=== PATIENT | male | born 1970 | race Caucasian/White ===

== ENCOUNTER 2023-01-12 09:44 | Outpatient (OUT) | payer BC, SELFPAY ==
[2023-01-12 10:52] LABS: Basophils Absolute Auto 0.1 10^3/uL (0.0-0.1); Basophils Percent Auto 0.8 % (0.2-2.0); Eosinophils Absolute Auto 0.2 10^3/uL (0.0-0.7); Eosinophils Percent Auto 2.1 % (0.9-7.0); Hematocrit 42.5 % (42.0-54.0); Hemoglobin 14.9 g/dL (14.0-18.0); Immature Granulocytes Abs Auto 0.01 10^3/uL (0.00-0.03); Immature Granulocytes Pct Auto 0.1 % (0.0-0.5); Lymphocytes Absolute Auto 1.5 10^3/uL (1.2-3.8); Lymphocytes Percent Auto 20.8 % (20.5-60.0); Mean Corpuscular HGB Conc 35.1 g/dL (29.9-35.2); Mean Corpuscular Volume 85.7 fL (80.0-94.0); Mean Platelet Volume 10.5 fL (9.5-13.5); Monocytes Absolute Auto 0.6 10^3/uL (0.3-0.8); Neutrophils Absolute Auto 4.9 10^3/uL (1.4-6.5); Neutrophils Percent Auto 68.2 % (43.0-75.0); Platelet Count 226 10^3/uL (150-450); Red Blood Count 4.96 10^6/uL (4.70-6.10); White Blood Count 7.1 10^3/uL (4.0-11.0)
[2023-01-12 11:13] LABS: Prostate Specific Antigen Scrn 0.75 ng/mL (<=4.00)
[2023-01-12 11:15] LABS: Alanine Aminotransferase 54 U/L (16-63); Albumin Globulin Ratio 1.2; Albumin Level 4.3 g/dL (3.4-5.0); Alkaline Phosphatase 83 U/L (46-116); Aspartate Amino Transferase 25 U/L (15-37); Bilirubin Total 0.6 mg/dL (0.2-1.0); Calcium 9.8 mg/dL (8.5-10.1); Carbon Dioxide 30.9 mmol/L (21.0-32.0); Chloride 101 mmol/L (98-107); Chol HDL Ratio 5.5; Cholesterol 251 mg/dL (<=200); Estimated GFR (African America >60 (>=60); Estimated GFR (Non-African Ame >60 (>=60); Globulin 3.7 g/dL; Glucose 102 mg/dL (74-106); HDL Cholesterol 46 mg/dL (40-60); Potassium 4.9 mmol/L (3.5-5.1); Sodium 139 mmol/L (136-145); Thyroid Stimulating Hormone 1.253 uIU/mL (0.358-3.740); Triglycerides 90 mg/dL (<=150)
== END 2023-01-12 09:45 | disposition home or self-care (01) ==
PROVIDERS: PCP Nurse Practitioner; Visit Provider Nurse Practitioner
DX: Z00.00 Encounter for general adult medical examination without abnormal findings (principal); I10 Essential (primary) hypertension; G47.33 Obstructive sleep apnea (adult) (pediatric); Z12.5 Encounter for screening for malignant neoplasm of prostate; Z78.9 Other specified health status; Z68.43 Body mass index [BMI] 50.0-59.9, adult
CPT/HCPCS: 36415; 80053; 80061; 84443; 85025; G0103

== ENCOUNTER 2023-01-15 15:03 | Outpatient (OUT) | payer BC, SELFPAY ==
--- NOTE | 2023-01-15 | XR_ITS ---
The [address] [address] Patient Name: NEHAL BAIG MRN: [id number] date: 1970 Sex: M Assigned Patient Location: [facility] Current Patient Location: Accession/Order Number: [id number] Exam Date: 01/15/2023 15:40 Report Date: 01/16/2023 02:01 At the request of: TOMER JACINTO Procedure: XR ankle JEMIMA min 3V EXAMINATION: XR foot JEMIMA min 3V, XR ankle JEMIMA min 3V HISTORY: BILATERAL FOOT PAIN COMPARISON: No relevant comparison available. FINDINGS: RIGHT FINDINGS: BONES: No significant arthropathy or acute abnormality. SOFT TISSUES: No visible soft tissue swelling. OTHER: Negative. LEFT FINDINGS: BONES: No significant arthropathy or acute abnormality. SOFT TISSUES: Degenerative enthesopathic spurring at Achilles tendon insertion. OTHER: Negative. XR/XR ankle JEMIMA min 3V IMPRESSION: RIGHT CONCLUSION: No acute bone abnormality or significant degenerative joint disease. LEFT CONCLUSION: No acute bone abnormality or significant degenerative joint disease. Electronically authenticated by: JAYY GIVENS Date: 01/16/2023 02:01
--- NOTE | 2023-01-15 | XR_ITS ---
The [address] [address] Patient Name: NEHAL BAIG MRN: [id number] date: 1970 Sex: M Assigned Patient Location: [facility] Current Patient Location: Accession/Order Number: [id number] Exam Date: 01/15/2023 15:40 Report Date: 01/16/2023 02:01 At the request of: TOMER JACINTO Procedure: XR foot JEMIMA min 3V EXAMINATION: XR foot JEMIMA min 3V, XR ankle JEMIMA min 3V HISTORY: BILATERAL FOOT PAIN COMPARISON: No relevant comparison available. FINDINGS: RIGHT FINDINGS: BONES: No significant arthropathy or acute abnormality. SOFT TISSUES: No visible soft tissue swelling. OTHER: Negative. LEFT FINDINGS: BONES: No significant arthropathy or acute abnormality. SOFT TISSUES: Degenerative enthesopathic spurring at Achilles tendon insertion. OTHER: Negative. XR/XR foot JEMIMA min 3V IMPRESSION: RIGHT CONCLUSION: No acute bone abnormality or significant degenerative joint disease. LEFT CONCLUSION: No acute bone abnormality or significant degenerative joint disease. Electronically authenticated by: JAYY GIVENS Date: 01/16/2023 02:01
== END 2023-01-15 15:04 | disposition home or self-care (01) ==
LOC: RAD 15:03
PROVIDERS: PCP Nurse Practitioner; Visit Provider Podiatrist Foot & Ankle Surgery
DX: M79.673 Pain in unspecified foot (principal); M25.571 Pain in right ankle and joints of right foot; M25.572 Pain in left ankle and joints of left foot; M79.671 Pain in right foot; M79.672 Pain in left foot
CPT/HCPCS: 73610; 73630

== ENCOUNTER 2023-01-24 15:31 | Outpatient (OUT) | payer BC, SELFPAY ==
--- NOTE | 2023-01-24 15:35 | MR_ITS ---
The [place] [id number] Patient Name: NEHAL BAIG MRN: [id number] date: 1970 Sex: M Assigned Patient Location: MRI Current Patient Location: Accession/Order Number: [id number] Exam Date: 01/24/2023 15:47 Report Date: 01/28/2023 07:59 At the request of: TOMER JACINTO Procedure: MR ankle LT wo con HISTORY: Pain in the posterior aspect of the left ankle and heel. No known injury. MR ankle LT wo con: 01/24/2023 3:47 PM EDT COMPARISON: Radiographs of the left ankle and foot 01/15/2023. TECHNIQUE: Multiplanar, multisequence MRI images of the ankle were obtained without contrast. FINDINGS: Several images are degraded by motion artifact. LIGAMENTS: The anterior talofibular ligament appears mildly thickened but of low signal intensity. The calcaneofibular ligament, posterior talofibular ligament, and distal tibiofibular ligaments appear within normal limits. The deltoid ligament complex appears within normal limits. TENDONS: There is mild to moderate thickening and intermediate signal intensity of the distal Achilles tendon at its insertion on the calcaneus. There is an enthesophyte within the distal Achilles tendon at its insertion on the calcaneus and there is edema-like signal within this enthesophyte and the posterior aspect of the calcaneus. The other tendons of the ankle appear within normal limits. SINUS TARSI AND TARSAL TUNNEL: No space-occupying mass is seen in the tarsal tunnel or the sinus tarsi. BONES AND JOINTS: The bone marrow signal intensity is age appropriate. No unstable osteochondral defect of the tibiotalar joint is identified. There is a large os trigonum again seen and there appear to be mild degenerative changes at its synchondrosis. However, there is no adjacent bone marrow edema in this region. PLANTAR FASCIA: There is moderate to severe focal thickening and intermediate signal intensity involving the central band of the plantar fascia at its attachment to the calcaneus. SOFT TISSUES: No significant soft tissue swelling is seen. MR/MR ankle LT wo con IMPRESSION: 1. Mild to moderate tendinopathy of the distal Achilles tendon at its insertion on the calcaneus with reactive edema within a calcaneal enthesophyte and the posterior aspect of the calcaneus in this region. However, no significant tear of the tendon is seen. 2. Moderate to severe plantar fasciitis of the proximal portion of the central band of the plantar fascia. 3. There is a large os trigonum with mild degenerative change at its synchondrosis. 4. Probable remote grade 2 sprain and subsequent scarring of the anterior talofibular ligament. No acute ligament injury is seen. 5. Please note that several images of this examination are degraded by motion artifact. Electronically authenticated by: CHANDRAKANT BOYLE Date: 01/28/2023 07:59
== END 2023-01-24 15:32 | disposition home or self-care (01) ==
LOC: MRI 15:31
PROVIDERS: PCP Nurse Practitioner; Visit Provider Podiatrist Foot & Ankle Surgery
DX: S86.012A Strain of left Achilles tendon, initial encounter (principal); M72.2 Plantar fascial fibromatosis
CPT/HCPCS: 73721

== ENCOUNTER 2023-01-28 15:10 | Outpatient (OUT) | payer BC, SELFPAY ==
--- NOTE | 2023-01-28 16:02 | PM.CN ---
Consult Note: HPI Data of Consult Patient: new to practice Consult date: 01/28/23 Requesting Physician: Brenton Pena MD Primary Care Provider: YOUNG WHEAT Consult Narrative Reason for consult: low back pain Narrative: 52yom who presents for evaluation. worsening low back pain, ongoing for months. no relief with otc pain medications. has engaged in >6 weeks of provider directed home exercises, with no benefit. lumbar xr shows significant facet arthropathy in lower lumbar spine. denies adverse med side effects. cc:: CC: Brenton Pena MD Review of Systems ROS Status of ROS 10 or more systems reviewed and unremarkable except as noted in history and below Exam Narrative Exam Narrative: Psych-alert and oriented x 3. Attentive and appropriate, constitutionally normal, displays normal mood and affect per situation.? There are no obvious deficits in memory, reasoning, or intellect.? Skin-no obvious rashes, bruising, erythema noted to the patient's area of pain. Extremities- extremities are warm with minimal edema and palpable pulses. Lumbar-no significant tenderness to palpation noted in the lumbar spine and paraspinal musculature.? Pain is elicited with extension, and lateral rotation of the lumbar spine. Range of motion is slightly diminished with these motions due to pain. Facet loading maneuvers are positive bilaterally and do appear to be concordant with the patient's normal complaints of pain.? Coordination remains intact.? Gait remains non-antalgic. Assessment and Plan Assessment and Plan (1) Lumbar spondylosis: Plan 52yom who presents for evaluation. failed physical and medical modalities. imaging reviewed, as noted. given symptoms and imaging, prudent to attempt bilateral l4-5, l5-s1 medial branch block under fluoroscopic guidance with intention of proceeding to radiofrequency ablation. he is in agreement. medications reviewed, no changes. 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 follow up after procedure.
== END 2023-01-28 15:11 | disposition home or self-care (01) ==
LOC: PM 15:11
PROVIDERS: PCP Nurse Practitioner; Visit Provider Anesthesiology
DX: M47.816 Spondylosis without myelopathy or radiculopathy, lumbar region (principal)
CPT/HCPCS: G0463

== ENCOUNTER 2023-02-04 06:54 | Day surgery (SDC) | payer BC, SELFPAY ==
[2023-02-04 07:17] VITALS: BP 140/84; PULSE 77; RESP 18; TEMP 36.7; O2SAT 97
[2023-02-04] MEDS: BUPIVACAINE HCL 0.5% PF 50 MG/10 ML VIAL 8 ML INJ (08:07)
[2023-02-04] MEDS: LIDOCAINE HCL 2% PF 100 MG/5 ML VIAL INJ (08:08)
--- NOTE | 2023-02-04 08:09 | W.PM.PROCNOT ---
Date of procedure: 02/04/23 Pre-op diagnosis: Lumbar spondylosis Post-op diagnosis: same as pre-op Procedure: Procedure: Bilateral L4-5, L5-S1 medial branch block Medications: Bupivacaine 0.25% 4cc x2 The patient was seen and examined in the preoperative holding area.? An informed consent was obtained and placed on the chart.? The patient was brought to the medical procedure unit and placed in the prone position.? A timeout was completed verifying correct patient, procedure site, positioning, plan, and special equipment.? Using aseptic technique, the needle was placed at left L4. Under direct fluoroscopic visualization a Quincke-tipped spinal needle was advanced to the junction of the superior articulating process with the transverse process at the designated medial branch segment.? Preceded by negative aspiration, the above-mentioned injectate was placed in 1 mL aliquots.? The procedure was repeated at left L5, S1.? The needle was removed and insertion site was covered. The same procedure, at the same levels, was completed on the right side. The patient was taken to the postprocedural recovery area and monitored for an appropriate length of time before found suitable for discharge in the company of a responsible adult. Anesthesia: Local Surgeon: Brenton Pena Pathology: none sent Condition: stable Disposition: no change
[2023-02-04 08:10] VITALS: BP 116/63; BP 117/67; PULSE 78; PULSE 82; RESP 18; O2SAT 97; O2SAT 98
== END 2023-02-04 08:13 | disposition home or self-care (01) ==
PROVIDERS: PCP Nurse Practitioner; Visit Provider Anesthesiology
DX: M47.816 Spondylosis without myelopathy or radiculopathy, lumbar region (principal)
CPT/HCPCS: 64493; 64494

== ENCOUNTER 2023-02-14 15:27 | Outpatient (OUT) | payer BC, SELFPAY ==
--- NOTE | 2023-02-14 15:40 | PM.CN ---
Consult Note: HPI Data of Consult Patient: new to practice Consult date: 01/28/23 Requesting Physician: Miya Batista NP Primary Care Provider: YOUNG WHEAT Consult Narrative Reason for consult: low back pain Narrative: 52yom who presents for evaluation. worsening low back pain, ongoing for months. no relief with otc pain medications. has engaged in >6 weeks of provider directed home exercises, with no benefit. lumbar xr shows significant facet arthropathy in lower lumbar spine. denies adverse med side effects. Patient reporting pain 5-6/10 constant nagging low back pain, worse with standing walking lifting and stairs. Patient reports 100% pain improvement and functional improvement immediateyl after and days following MBB #1 at bilateral L4/5 L5/S1. Patient would like to discuss MBB #2 working towards thermal RFA. cc:: CC: Miya Batista NP Review of Systems ROS Status of ROS 10 or more systems reviewed and unremarkable except as noted in history and below Musculoskeletal Reports: back pain PFSH PFSH Medical History Hypertension ?I10 - Essential (primary) hypertension (ICD-10) Kidney stones ?N20.0 - Calculus of kidney (ICD-10) Low back pain ?M54.50 - Low back pain, unspecified (ICD-10) Sleep apnea ?G47.30 - Sleep apnea, unspecified (ICD-10) Surgical History (Updated 01/30/23 @ 15:11 by Gracy Rebolledo) H/O shoulder replacement ?Z96.619 - Presence of unspecified artificial shoulder joint (ICD-10) History of carpal tunnel release ?Z98.890 - Other specified postprocedural states (ICD-10) Meds Home Medications and Allergies Home Medications Medication Instructions Recorded Confirmed Type acetaminophen 500 mg capsule 1,000 mg PO .Q12 PRN pain 01/28/23 02/04/23 History ibuprofen 200 mg tablet (I-Prin) 1,000 mg PO Q12H 01/28/23 02/04/23 History lisinopril 10 mg tablet 10 mg PO DAILY 01/28/23 02/04/23 History omeprazole 20 mg capsule,delayed 20 mg PO DAILY 01/28/23 02/04/23 History release Allergies Allergy/AdvReac Type Severity Reaction Status Date / Time No Known Drug Allergies Allergy Verified 02/04/23 07:16 Exam Narrative Exam Narrative: Psych-alert and oriented x 3. Attentive and appropriate, constitutionally normal, displays normal mood and affect per situation.? There are no obvious deficits in memory, reasoning, or intellect.? Skin-no obvious rashes, bruising, erythema noted to the patient's area of pain. Extremities- extremities are warm with minimal edema and palpable pulses. Lumbar-no significant tenderness to palpation noted in the lumbar spine and paraspinal musculature.? Pain is elicited with extension, and lateral rotation of the lumbar spine. Range of motion is slightly diminished with these motions due to pain. Facet loading maneuvers are positive bilaterally and do appear to be concordant with the patient's normal complaints of pain.? Coordination remains intact.? Gait remains non-antalgic. Assessment and Plan Assessment and Plan (1) Lumbar spondylosis: Assessment and Plan: We discussed the risks and benefits of the procedure with the patient, and we are NOT planning on using sedation as outlined in the guidelines from Medicare unless there is a documented reason that sedation would be strongly recommended.?? The procedure will be completed with fluoroscopic guidance.? Plan -proceed with bilateral L4-5 L5-S1 MBB #2 working towards thermal RFA -continue current medications -f/u 1 week after MBB
== END 2023-02-14 15:28 | disposition home or self-care (01) ==
LOC: PM 15:28
PROVIDERS: PCP Nurse Practitioner; Visit Provider Nurse Practitioner
DX: M47.816 Spondylosis without myelopathy or radiculopathy, lumbar region (principal)
CPT/HCPCS: G0463

== ENCOUNTER 2023-02-24 07:36 | Emergency (ER) | payer BC, SELFPAY ==
[2023-02-24 07:39] VITALS: BP 159/90; PULSE 86; RESP 18; TEMP 36.6; O2SAT 97; BMI 51.9
--- NOTE | 2023-02-24 08:10 | XR_ITS ---
The [address] [address] Patient Name: NEHAL BAIG MRN: [id number] date: 1970 Sex: M Assigned Patient Location: ER Current Patient Location: Accession/Order Number: [id number] Exam Date: 02/24/2023 08:20 Report Date: 02/24/2023 08:58 At the request of: JOSE BUTTS Procedure: XR shoulder LT min 2V EXAM: XR shoulder LT min 2V INDICATION: pain. COMPARISON: None. TECHNIQUE: Left shoulder, 3 views. FINDINGS: Changes of left shoulder arthroplasty. Components are in anatomic alignment. No periprosthetic fracture. No evidence of hardware loosening. Mild degenerative changes of the acromioclavicular joint. Unremarkable soft tissues. XR/XR shoulder LT min 2V IMPRESSION: No acute left shoulder abnormality. Electronically authenticated by: SERA BARNETT Date: 02/24/2023 08:58
[2023-02-24] MEDS: HYDROCODONE/ACET 5-325 MG TABLET 1 TAB PO (08:25)
--- NOTE | 2023-02-24 08:43 | ED_ITS ---
HPI - General Adult General Chief complaint: Extremity Injury, Upper Stated complaint: UPPER EXTREMITY PAIN LEFT SHOULDER Time Seen by Provider: 02/24/23 08:10 Source: patient Mode of arrival: walk-in History of Present Illness HPI narrative: Patient is a 52-year-old male who is presenting to the Emergency Room with chief complaint of left shoulder pain. Patient started having pain around noon on . Patient stated that he lifted something out of a smoker there is only approximately 5-10 pounds morning, of turkey. Patient had no other injury, no fall, no other acute complaints. Patient's been having progressive pain to his left shoulder since . He's been using Tylenol, anti- inflammatories, along with heat, CBD oil, and lidocaine patches. Patient had a shoulder replacement done by Dr. Barragan in the spring of this past year. Patient has no headache. No chest pain, shortness of breath. Patient has chronic lymphedema to left upper extremities from a previous accident. Patient has no other acute complaints this time. Patient girlfriend is at bedside. Related Data Home Medications Medication Instructions Recorded Confirmed acetaminophen 500 mg capsule 1,000 mg PO .Q12 PRN pain 01/28/23 02/24/23 ibuprofen 200 mg tablet (I-Prin) 1,000 mg PO Q12H 01/28/23 02/24/23 lisinopril 10 mg tablet 10 mg PO DAILY 01/28/23 02/24/23 omeprazole 20 mg capsule,delayed 20 mg PO DAILY 01/28/23 02/24/23 release aspirin 81 mg tablet,delayed 81 mg PO DAILY 02/24/23 02/24/23 release (Adult Aspirin Regimen) cholecalciferol (vitamin D3) 25 1,000 unit PO DAILY 02/24/23 02/24/23 mcg (1,000 unit) chewable tablet (VitaJoy Daily D) cyanocobalamin (vitamin B-12) 500 500 mcg PO DAILY 02/24/23 02/24/23 mcg tablet (B-12 DOTS) Previous Rx's Medication Instructions Recorded hydrocodone 5 mg-acetaminophen 325 1 tab PO Q4H PRN pain #10 tabs 02/24/23 mg tablet Allergies Allergy/AdvReac Type Severity Reaction Status Date / Time No Known Drug Allergies Allergy Verified 02/04/23 07:16 Review of Systems ROS Narrative All systems are negative except as noted/marked. All systems reviewed and otherwise negative. PFSH PFSH Medical History Hypertension ?I10 - Essential (primary) hypertension (ICD-10) Kidney stones ?N20.0 - Calculus of kidney (ICD-10) Low back pain ?M54.50 - Low back pain, unspecified (ICD-10) Sleep apnea ?G47.30 - Sleep apnea, unspecified (ICD-10) Surgical History (Updated 01/30/23 @ 15:11 by Gracy Rebolledo) H/O shoulder replacement ?Z96.619 - Presence of unspecified artificial shoulder joint (ICD-10) History of carpal tunnel release ?Z98.890 - Other specified postprocedural states (ICD-10) Exam Constitutional Vital Signs, click to edit/add: Last Vital Signs Temp 98 F 02/24/23 07:39 Pulse 86 02/24/23 07:39 Resp 18 02/24/23 07:39 BP 159/90 H 02/24/23 07:39 Pulse Ox 97 02/24/23 07:39 O2 Del Method Room Air 02/24/23 07:39 Course Vital Signs Vital signs: Vital Signs Temperature 98 F 02/24/23 07:39 Pulse Rate 86 02/24/23 07:39 Respiratory Rate 18 02/24/23 07:39 Blood Pressure 159/90 H 02/24/23 07:39 Pulse Oximetry 97 02/24/23 07:39 Oxygen Delivery Method Room Air 02/24/23 07:39 Temperature 98 F 02/24/23 07:39 Pulse Rate 86 02/24/23 07:39 Respiratory Rate 18 02/24/23 07:39 Blood Pressure 159/90 H 02/24/23 07:39 Pulse Oximetry 97 02/24/23 07:39 Oxygen Delivery Method Room Air 02/24/23 07:39 Medical Decision Making [facility] Narrative Medical decision making narrative: Physical exam Nurses note and vital signs reviewed and patient is not hypoxic. General: The patient appears Moderate distress secondary left shoulder pain. Patient is resting uncomfortably on cart. Patient is not toxic, lethargic, or listless Skin: Warm, dry, no pallor noted. There is no rash noted. No petechiae, purpura. Head: Normocephalic, atraumatic Eye: Normal conjunctiva, no drainage, EOMI. PERRL Ears, Nose, Mouth, and Throat: oral mucosa is moist. Cardiovascular: Regular Rate and Rhythm, no murmur, gallop, rub Respiratory: Patient is in no distress, no accessory muscle use, lungs are clear to auscultation, no wheezing, rales or rhonchi Back: non-tender, GI: soft, obese, no tenderness Musculoskeletal: Patient has full range of motion of all of the extremities Except to left upper extremity. Patient's having severe pain with abduction to approximately 20 degrees, moderate pain with flexion and extension of left shoulder, patient is very guarded with any movement to left upper extremity/shoulder, chronic lymphedema to left upper extremity, no pain to the posterior aspect of the left upper extremity suggesting deep vein thrombosis. Otherwise no motor, sensory, or focal neurological deficits Neurological: A&O x3, normal speech Psychiatric: Cooperative Patient left shoulder x-ray shows stable hardware, no acute abnormalities. See official report. Patient was given a left upper extremity/arm sling. Patient was given ice and one Sidney. Patient has been using heat every day . Patient was recommended to stop using heat, start using ice. Patient is to follow-up and call Dr. Huan Barragan tomorrow, orthopedic surgery. Patient will continue anti-inflammatories. Patient was given a short prescription for Sidney as well. Discharge Plan Discharge Chief Complaint: Extremity Injury, Upper Clinical Impression: Left shoulder pain Patient Disposition: Home, Self-Care Time of Disposition Decision: 08:39 Condition: Fair Prescriptions / Home Meds: New hydrocodone-acetaminophen 5-325 mg tablet 1 tab PO Q4H PRN (Reason: pain) Qty: 10 0RF No Action aspirin [Adult Aspirin Regimen] 81 mg tablet,delayed release (DR/EC) 81 mg PO DAILY cyanocobalamin (vitamin B-12) [B-12 DOTS] 500 mcg tablet 500 mcg PO DAILY cholecalciferol (vitamin D3) [VitaJoy Daily D] 25 mcg (1,000 unit) tablet,chewable 1,000 unit PO DAILY lisinopril 10 mg tablet 10 mg PO DAILY omeprazole 20 mg capsule,delayed release(DR/EC) 20 mg PO DAILY acetaminophen 500 mg capsule 1,000 mg PO .Q12 PRN (Reason: pain) ibuprofen [I-Prin] 200 mg tablet 1,000 mg PO Q12H Instructions: Shoulder Pain (ED) Additional Instructions: Call Dr. Barragan tomorrow for a follow-up appointment in the office. Work note given. Ice 20 minutes on, 20 minutes off. Use sling only for the next 3-4 days and to follow-up with Dr. Barragan in the office. Stand Alone Forms: Work/School Release, Portal Instructions Referrals: YOUNG WHEAT [Primary Care Provider] - 1 week
== END 2023-02-24 08:53 | disposition home or self-care (01) ==
PROVIDERS: Emergency Provider Emergency Medicine; PCP Nurse Practitioner
DX: M25.512 Pain in left shoulder (principal); I10 Essential (primary) hypertension; G47.30 Sleep apnea, unspecified; I89.0 Lymphedema, not elsewhere classified; Z79.899 Other long term (current) drug therapy; Z79.82 Long term (current) use of aspirin; Z87.442 Personal history of urinary calculi; Z96.619 Presence of unspecified artificial shoulder joint; Z98.890 Other specified postprocedural states
CPT/HCPCS: 73030; 99283

== ENCOUNTER 2023-03-04 06:45 | Day surgery (SDC) | payer BC, SELFPAY ==
[2023-03-04 07:18] VITALS: BP 133/81; PULSE 91; RESP 14; TEMP 36.1; O2SAT 97
[2023-03-04 07:54] VITALS: PULSE 87; RESP 18; O2SAT 98
[2023-03-04 07:56] VITALS: BP 117/82; BP 118/84; PULSE 86; RESP 18; O2SAT 98
--- NOTE | 2023-03-04 07:56 | W.PM.PROCNOT ---
Date of procedure: 03/04/23 Pre-op diagnosis: Lumbar spondylosis Post-op diagnosis: same as pre-op Procedure: Procedure: Bilateral L4-5, L5-S1 medial branch block Medications: Bupivacaine 0.25% 5cc The patient was seen and examined in the preoperative holding area.? An informed consent was obtained and placed on the chart.? The patient was brought to the medical procedure unit and placed in the prone position.? A timeout was completed verifying correct patient, procedure site, positioning, plan, and special equipment.? Using aseptic technique, the needle was placed at left L4. Under direct fluoroscopic visualization a Quincke-tipped spinal needle was advanced to the junction of the superior articulating process with the transverse process at the designated medial branch segment.? Preceded by negative aspiration, the above-mentioned injectate was placed in 1 mL aliquots.? The procedure was repeated at left L5, S1.? The needle was removed and insertion site was covered. The same procedure, at the same levels, was completed on the right side. The patient was taken to the postprocedural recovery area and monitored for an appropriate length of time before found suitable for discharge in the company of a responsible adult. Anesthesia: Local Surgeon: Brenton Pena Pathology: none sent Condition: stable Disposition: no change
[2023-03-04] MEDS: BUPIVACAINE HCL 0.25% PF 25 MG/10 ML VIAL 8 ML INJ (07:58)
[2023-03-04] MEDS: LIDOCAINE HCL 2% PF 100 MG/5 ML VIAL 1 ML INJ (07:58)
== END 2023-03-04 08:01 | disposition home or self-care (01) ==
LOC: SURGOUT 06:45
PROVIDERS: PCP Nurse Practitioner; Visit Provider Anesthesiology
DX: M47.816 Spondylosis without myelopathy or radiculopathy, lumbar region (principal); M77.31 Calcaneal spur, right foot; S86.012S Strain of left Achilles tendon, sequela
CPT/HCPCS: 64493; 64494; 93005; G0463

== ENCOUNTER 2023-03-04 12:39 | Outpatient (OUT) | payer BC, SELFPAY ==
--- NOTE | 2023-03-04 12:44 | ECG_ITS ---
The [facility] Test Date: 2023-03-04 Pat Name: NEHAL BAIG Department: Room: - Gender: Male Home Health Aid: : 1970 Requested By: TOMER JACINTO Order Number: [id number] Reading MD: AILYN JOHNSON Measurements Intervals [place] Rate: 77 P: 36 ND: 160 QRS: -14 QRSD: 110 T: 48 QT: 364 QTc: 414 Interpretive Statements SINUS RHYTHM No previous ECG available for comparison Electronically Signed On 03-05-2023 7:13:08 EST by AILYN JOHNSON
--- NOTE | 2023-03-04 13:26 | P.GSHP_ITS ---
History of Present Illness History of Present Illness Chief complaint: strain of achilles tendon, calcaneal spur right Narrative: Patient presents for preadmission testing. Please see HPI from Dr. Mazariegos dated 02/19/2023. Review of Systems ROS Narrative Please see ROS from Dr. Mazariegos dated 02/19/2023. [facility] Medical History (Updated 03/04/23 @ 13:24 by Mady Anaya NP) Achilles tendinitis ?M76.60 - Achilles tendinitis, unspecified leg (ICD-10) Ankle pain ?M25.579 - Pain in unspecified ankle and joints of unspecified foot (ICD-10) Calcaneal spur ?M77.30 - Calcaneal spur, unspecified foot (ICD-10) Foot pain ?M79.673 - Pain in unspecified foot (ICD-10) GERD (gastroesophageal reflux disease) ?K21.9 - Gastro-esophageal reflux disease without esophagitis (ICD-10) Heartburn ?R12 - Heartburn (ICD-10) High cholesterol ?E78.00 - Pure hypercholesterolemia, unspecified (ICD-10) Hypertension ?I10 - Essential (primary) hypertension (ICD-10) Kidney stones ?N20.0 - Calculus of kidney (ICD-10) Low back pain ?M54.50 - Low back pain, unspecified (ICD-10) Migraine ?G43.909 - Migraine, unspecified, not intractable, without status migrainosus (ICD-10) Plantar fascial fibromatosis ?M72.2 - Plantar fascial fibromatosis (ICD-10) Sleep apnea ?G47.30 - Sleep apnea, unspecified (ICD-10) Strain of Achilles tendon ?S86.019A - Strain of unspecified Achilles tendon, initial encounter (ICD-10) Surgical History (Updated 03/04/23 @ 13:04 by Mady Anaya NP) H/O shoulder replacement ?Z96.619 - Presence of unspecified artificial shoulder joint (ICD-10) H/O vasectomy (2013) ?Z98.52 - Vasectomy status (ICD-10) History of carpal tunnel release ?Z98.890 - Other specified postprocedural states (ICD-10) History of colonoscopy ?Z98.890 - Other specified postprocedural states (ICD-10) History of foot surgery ?Z98.890 - Other specified postprocedural states (ICD-10) Family History (Updated 03/04/23 @ 13:04 by Mady Anaya NP) Other Family history of lung cancer Social History (Updated 03/04/23 @ 13:00 by Mady Anaya NP) Within the past year, how often did you have a drink containing alcohol: monthly or less Smoking status: Never smoker Non-prescribed substance use: denies use 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 Highest level of school completed/degree received: high school graduate Meds Home Medications and Allergies Home Medications Medication Instructions Recorded Confirmed Type acetaminophen 500 mg capsule 1,000 mg PO .Q12 PRN pain 01/28/23 03/04/23 History ibuprofen 200 mg tablet (I-Prin) 800 mg PO Q12H 01/28/23 03/04/23 History lisinopril 10 mg tablet 10 mg PO DAILY 01/28/23 03/04/23 History omeprazole 20 mg capsule,delayed 20 mg PO DAILY 01/28/23 03/04/23 History release aspirin 81 mg tablet,delayed 81 mg PO DAILY 02/24/23 03/04/23 History release (Adult Aspirin Regimen) cholecalciferol (vitamin D3) 25 2,000 unit PO DAILY 02/24/23 03/04/23 History mcg (1,000 unit) chewable tablet (VitaJoy Daily D) cyanocobalamin (vitamin B-12) 500 500 mcg PO DAILY 02/24/23 03/04/23 History mcg tablet (B-12 DOTS) magnesium 250 mg tablet 500 mg PO DAILY 03/04/23 03/04/23 History Allergies Allergy/AdvReac Type Severity Reaction Status Date / Time No Known Drug Allergies Allergy Verified 03/04/23 12:55 Exam Narrative Exam Narrative: Constitutional: Awake, alert, comfortable, well-appearing, nontoxic, interactive, vital signs as charted Head: Normocephalic, atraumatic Neck: Supple, normal appearance, normal range of motion, no meningeal signs, no lymphadenopathy Respiratory: No respiratory distress, breath sounds clear Cardiovascular: Regular rate and rhythm, strong and regular heart tones Neuro: No neurological deficits, normal sensation Psychiatric: Oriented ?3, normal affect Assessment and Plan Assessment and Plan (1) Achilles tendinitis: (2) Ankle pain: (3) Calcaneal spur: (4) Foot pain: (5) Plantar fascial fibromatosis: (6) Strain of Achilles tendon: Plan Left Achilles tendon repair, excision of calcaneal spur, endoscopic plantar fasciotomy, possible tendon transfer scheduled with Dr. Mazariegos 03/11/2023.
== END 2023-03-04 12:40 | disposition home or self-care (01) ==
LOC: PST 12:39
PROVIDERS: PCP Nurse Practitioner; Visit Provider Podiatrist Foot & Ankle Surgery
DX: Z01.810 Encounter for preprocedural cardiovascular examination (principal); M77.31 Calcaneal spur, right foot; S86.012S Strain of left Achilles tendon, sequela
CPT/HCPCS: 93005; G0463

== ENCOUNTER 2023-03-07 12:20 | Outpatient (OUT) | payer BC, SELFPAY ==
--- NOTE | 2023-03-07 12:35 | PM.CN ---
Consult Note: HPI Data of Consult Patient: known to practice within the last 3 years Consult date: 01/28/23 Requesting Physician: Miya Batista NP Primary Care Provider: [facility] Consult Narrative Reason for consult: low back pain Narrative: 52yom who presents for evaluation. worsening low back pain, ongoing for months. no relief with otc pain medications. has engaged in >6 weeks of provider directed home exercises, with no benefit. lumbar xr shows significant facet arthropathy in lower lumbar spine. denies adverse med side effects. Patient reporting pain 4/10 constant deep ache in low back pain, worse with standing walking lifting and stairs. Patient reports greater than 80% pain improvement and functional improvement immediately after and days following MBB #1 and #2 at bilateral L4/5 L5/S1. cc:: CC: Miya Batista NP Review of Systems ROS Status of ROS 10 or more systems reviewed and unremarkable except as noted in history and below Musculoskeletal Reports: back pain PFSH PFSH Medical History (Updated 03/04/23 @ 13:24 by Mady Anaya NP) Foot pain ?M79.673 - Pain in unspecified foot (ICD-10) Ankle pain ?M25.579 - Pain in unspecified ankle and joints of unspecified foot (ICD-10) Achilles tendinitis ?M76.60 - Achilles tendinitis, unspecified leg (ICD-10) Plantar fascial fibromatosis ?M72.2 - Plantar fascial fibromatosis (ICD-10) Migraine ?G43.909 - Migraine, unspecified, not intractable, without status migrainosus (ICD-10) GERD (gastroesophageal reflux disease) ?K21.9 - Gastro-esophageal reflux disease without esophagitis (ICD-10) Heartburn ?R12 - Heartburn (ICD-10) High cholesterol ?E78.00 - Pure hypercholesterolemia, unspecified (ICD-10) Calcaneal spur ?M77.30 - Calcaneal spur, unspecified foot (ICD-10) Strain of Achilles tendon ?S86.019A - Strain of unspecified Achilles tendon, initial encounter (ICD-10) Low back pain ?M54.50 - Low back pain, unspecified (ICD-10) Kidney stones ?N20.0 - Calculus of kidney (ICD-10) Sleep apnea ?G47.30 - Sleep apnea, unspecified (ICD-10) Hypertension ?I10 - Essential (primary) hypertension (ICD-10) Surgical History History of colonoscopy ?Z98.890 - Other specified postprocedural states (ICD-10) History of foot surgery ?Z98.890 - Other specified postprocedural states (ICD-10) H/O vasectomy (2014) ?Z98.52 - Vasectomy status (ICD-10) H/O shoulder replacement ?Z96.619 - Presence of unspecified artificial shoulder joint (ICD-10) History of carpal tunnel release ?Z98.890 - Other specified postprocedural states (ICD-10) Family History Other Family history of lung cancer Social History Within the past year, how often did you have a drink containing alcohol: monthly or less Smoking status: Never smoker Non-prescribed substance use: denies use 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 Highest level of school completed/degree received: high school graduate Meds Home Medications and Allergies Home Medications Medication Instructions Recorded Confirmed Type acetaminophen 500 mg capsule 1,000 mg PO .Q12 PRN pain 01/28/23 03/04/23 History ibuprofen 200 mg tablet (I-Prin) 800 mg PO Q12H 01/28/23 03/04/23 History lisinopril 10 mg tablet 10 mg PO DAILY 01/28/23 03/04/23 History omeprazole 20 mg capsule,delayed 20 mg PO DAILY 01/28/23 03/04/23 History release aspirin 81 mg tablet,delayed 81 mg PO DAILY 02/24/23 03/04/23 History release (Adult Aspirin Regimen) cholecalciferol (vitamin D3) 25 2,000 unit PO DAILY 02/24/23 03/04/23 History mcg (1,000 unit) chewable tablet (VitaJoy Daily D) cyanocobalamin (vitamin B-12) 500 500 mcg PO DAILY 02/24/23 03/04/23 History mcg tablet (B-12 DOTS) magnesium 250 mg tablet 500 mg PO DAILY 03/04/23 03/04/23 History Allergies Allergy/AdvReac Type Severity Reaction Status Date / Time No Known Drug Allergies Allergy Verified 03/04/23 12:55 Exam Narrative Exam Narrative: Psych-alert and oriented x 3. Attentive and appropriate, constitutionally normal, displays normal mood and affect per situation.? There are no obvious deficits in memory, reasoning, or intellect.? Skin-no obvious rashes, bruising, erythema noted to the patient's area of pain. Extremities- extremities are warm with minimal edema and palpable pulses. Lumbar-no significant tenderness to palpation noted in the lumbar spine and paraspinal musculature.? Pain is elicited with extension, and lateral rotation of the lumbar spine. Range of motion is slightly diminished with these motions due to pain. Facet loading maneuvers are positive bilaterally and do appear to be concordant with the patient's normal complaints of pain.? Coordination remains intact.? Gait remains non-antalgic. Constitutional Documenting provider has reviewed patient's vital signs: yes Common normals: no apparent distress, oriented x3, healthy appearing, alert and well nourished General appearance: cooperative HENMT Common normals: normocephalic, hearing grossly normal bilaterally and moist oral mucous membranes Head and scalp: normocephalic Eye Common normals: PERRL Pupil: PERRL Neck & C-Spine Common normals: full ROM General: normal visual inspection Chest Common normals: inspection of chest normal Respiratory Common normals: normal respiratory effort, no retractions and no use of accessory muscles Neuro Common normals: oriented x3, CN's II-XII intact bilaterally, moves all extremities, no focal motor deficits, no sensory deficits noted and deep tendon reflexes 2+ bilaterally Sensorium/orientation: alert Motor exam: strength 5/5 throughout and no movement abnormalities noted Psych Common normals: mental status grossly normal, thought process normal, cooperative, affect normal, speech normal and activity/motor behavior normal Speech: normal speech Thought process: normal thought process Results Additional Findings Additional findings: I have checked an OAR[place] report on this patient today and there are no aberrancies noted in the prescribing history.?? A drug screen was completed and reviewed within the last year, and if there has not been a drug screen completed we ordered one today to monitor higher risk, state monitored pain medication use. As part of providing excellent, safe, comprehensive care, the following was completed at our patient's visit: 1. A medication reconciliation and review to ensure accurate knowledge of current/active medications, including asking our patients to inform us about any dljo-inn-bdlodog medications or herbal remedies/nutritional supplements/alternative remedies. 2. A review to specifically ensure our patients have had annual screening for: elevated body mass index (BMI), tobacco use, screening for depression, and screening for unhealthy alcohol use. When screening is concerning, patients are provided with education and the specific recommendation to discuss the concerning health issue and treatment options with their primary care provider. Assessment and Plan Assessment and Plan (1) Lumbar spondylosis: Assessment and Plan: The patient has had over 3 months of moderate to severe low back pain with functional impairment and inadequate response to conservative care including NSAIDS (unless there are contraindication such as concurrent blood thinners), multiple oral or topical pain medications, and home exercise program/physical therapy.? Patient has completed >6 weeks of guided home exercise program and/or formal physical therapy program without relief of their symptoms.? I have reviewed the imaging of the lumbar spine and no red flags were identified.? The imaging reveals radiographic findings consistent with lumbar facet arthropathy The Oswestry Disability Index was completed, and the patient scored a 42%.? The patient noted the following:?? moderate to severe pain, pain with ADLs, pain with standing and walking, pain impacting sleep, pain interfering with social life and travel We discussed the risks and benefits of the procedure with the patient, and we are NOT planning on using sedation as outlined in the guidelines from Medicare unless there is a documented reason that sedation would be strongly recommended.?? The procedure will be completed with fluoroscopic guidance.? Plan -bilateral L4-5 L5-S1 thermal RFA under fluoroscopy as patient has had greater than 80% pain relief and functional improvement with 2 diagnostic blocks at bilateral L4-5 L5-S1 -continue current medications, holding NSAIDs for achilles tendon surgery next week -f/u 1 month after RFA
--- OUTSIDE RECORDS SUMMARY | 2023-03-20 03:28 | XMS_ITS | CCD ---
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 Other diseases of veins and lymphatics (1 source) Lymphedema; Translations: [Lymphedema, not elsewhere classified] Chronic Other diseases of veins and lymphatics (1 source) Lymphedema, not elsewhere classified Chronic Other gastrointestinal disorders (1 source) Alteration in bowel elimination; Translations: [Change in bowel habit] Episodic Other gastrointestinal disorders (2 sources) Dark stools; Translations: [Other fecal abnormalities] Episodic Other injuries and conditions due to external causes (1 source) Personal history of other (healed) physical injury and trauma Episodic Other liver diseases (20 sources) Steatosis of liver; Translations: [Fatty (change of) liver, not elsewhere classified] Onset: 08-15-2021 Chronic Other liver diseases (1 source) Fatty (change of) liver, not elsewhere classified; Translations: [Fatty metamorphosis of liver] Onset: 08-15-2021 Chronic Other liver diseases (2 sources) Elevated liver enzymes level; Translations: [Abnormal levels of other serum enzymes] Episodic Other lower respiratory disease (20 sources) Multiple nodules of lung; Translations: [Other nonspecific abnormal finding of lung field] Onset: 03-10-2021 03-10-2021 Episodic Other lower respiratory disease (2 sources) Dyspnea on exertion; Translations: [Shortness of breath] Episodic Other nervous system disorders (20 sources) Bilateral carpal tunnel syndrome; Translations: [Carpal tunnel syndrome, bilateral upper limbs] Onset: 12-12-2020 12-12-2020 Chronic Other nervous system disorders (20 sources) Carpal tunnel syndrome of left wrist; Translations: [Carpal tunnel syndrome, left upper limb] Onset: 12-27-2020 12-27-2020 Chronic Other nervous system disorders (20 sources) Carpal tunnel syndrome of right wrist; Translations: [Carpal tunnel syndrome, right upper limb] Onset: 01-24-2021 01-24-2021 Chronic Other nervous system disorders (1 source) Chronic pain following trauma; Translations: [Chronic pain due to trauma] Chronic Other nervous system disorders (10 sources) Chronic pain due to injury; Translations: [Chronic pain due to trauma] Onset: 02-15-2022 02-15-2022 Chronic Other nervous system disorders (1 source) Paresthesia; Translations: [Paresthesia of skin] 01-07-2020 Episodic Other non-traumatic joint disorders (6 sources) Shoulder pain 09-18-2013 Episodic Other non-traumatic joint disorders (1 source) Pain in left shoulder; Translations: [Pain in joint, shoulder region] 12-17-2019 Episodic Other non-traumatic joint disorders (1 source) Pain in left ankle and joints of left foot Episodic Other nutritional; endocrine; and metabolic disorders (20 sources) Body mass index 40+ - severely obese; Translations: [Morbid (severe) obesity due to excess calories] Onset: 07-30-2017 07-30-2017 Chronic Other nutritional; endocrine; and metabolic disorders (1 source) Morbid (severe) obesity due to excess calories; Translations: [Morbid obesity with BMI of 50.0-59.9, adult ([facility])] Onset: 11-26-2019 Chronic Other nutritional; endocrine; and metabolic disorders (3 sources) Body mass index (BMI) 50.0-59.9, adult; Translations: [Morbid obesity with BMI of 50.0-59.9, adult ([facility])] Onset: 11-26-2019 Chronic Other nutritional; endocrine; and metabolic disorders (1 source) Obesity, unspecified Chronic Other nutritional; endocrine; and metabolic disorders (3 sources) Abnormal weight gain; Translations: [Abnormal weight gain] Episodic Residual codes; unclassified (20 sources) Obstructive sleep apnea syndrome; Translations: [Obstructive sleep apnea (adult) (pediatric)] Onset: 03-10-2021 03-10-2021 Chronic Residual codes; unclassified (2 sources) Obstructive sleep apnea (adult) (pediatric); Translations: [Obstructive sleep apnea syndrome] Onset: 03-10-2021 Chronic Residual codes; unclassified (6 sources) Sleep disorder 08-26-2012 Episodic Spondylosis; intervertebral disc disorders; other back problems (3 sources) Disorder of lumbar disc; Translations: [Unspecified thoracic, thoracolumbar and lumbosacral intervertebral disc disorder] Onset: 01-17-2023 Chronic Spondylosis; intervertebral disc disorders; other back problems (3 sources) Radiculopathy, lumbar region; Translations: [Spinal stenosis, cervical region] Onset: 01-17-2023 Episodic Unclassified (6 sources) Patient encounter status 01-09-2023 Unclassified (1 source) Dietary counseling and surveillance; Translations: [Dietary counseling and surveillance] Onset: 02-04-2023 Unclassified (1 source) Pain in left ankle and joints of left foot; Translations: [Pain in left ankle and joints of left foot] Onset: 12-16-2022 Past or Other Problems Problem Classification Problem Date Documented Date Episodic/Chronic Allergic reactions (20 sources) Environmental allergy; Translations: [Other allergy status, other than to drugs and biological substances] Onset: 03-10-2021 03-10-2021 Episodic Conditions associated with dizziness or vertigo (20 sources) Lightheadedness; Translations: [Dizziness and giddiness] Onset: 11-26-2019 11-26-2019 Episodic Crushing injury or internal injury (20 sources) Hematomediastinum; Translations: [Contusion of other specified intrathoracic organs, initial encounter] Onset: 08-01-2020 Episodic Diabetes mellitus without complication (20 sources) Impaired fasting glycemia; Translations: [Impaired fasting glucose] Onset: 08-15-2021 Episodic Other and unspecified benign neoplasm (9 sources) History of polyp of colon; Translations: [Personal history of colonic polyps] Onset: 02-15-2022 02-15-2022 Episodic Other liver diseases (1 source) Abnormal levels of other serum enzymes; Translations: [Elevated liver enzymes] Onset: 09-19-2021 Episodic Other lower respiratory disease (20 sources) Dyspnea; Translations: [Shortness of breath] Onset: 03-10-2021 03-10-2021 Episodic Other lower respiratory disease (20 sources) Wheezing; Translations: [Wheezing] Onset: 03-10-2021 03-10-2021 Episodic Other lower respiratory disease (1 source) Shortness of breath; Translations: [SOB (shortness of breath) on exertion] Onset: 09-19-2021 Episodic Other non-traumatic joint disorders (20 sources) Multiple joint pain; Translations: [Pain in unspecified joint] Onset: 11-26-2019 11-26-2019 Episodic Other non-traumatic joint disorders (1 source) Pain in unspecified joint; Translations: [Arthralgia of multiple sites] Onset: 11-26-2019 Episodic Other nutritional; endocrine; and metabolic disorders (7 sources) Obesity; Translations: [Obesity, unspecified] Resolved: 02-27-2019 02-28-2019 Chronic Other nutritional; endocrine; and metabolic disorders (1 source) Abnormal weight gain; Translations: [Abnormal weight gain] Onset: 08-30-2021 Episodic Other screening for suspected conditions (not mental disorders or infectious disease) (3 sources) Patient encounter status; Translations: [Encounter for screening for malignant neoplasm of colon] Onset: 07-26-2021 Episodic Residual codes; unclassified (20 sources) Postoperative state; Translations: [Other specified postprocedural states] Onset: 02-08-2021 02-08-2021 Episodic Results Test Name Value Interpretation Reference Range Facil ity Lab Reportson 03-14-2023 Lab Reports [id number]#1.00T IFF Normal [facility] Lab Miscellaneous-on 03-13 Lab Miscellaneous See Ref Report Invalid Interpretation [facility] Comment on above: Performed By: #### 1 [id number] ####[facility] [address] [place] [address] Reference Lab Reporton 03-13 Reference Lab Report [id number]#1.00TIFF Normal [facility] Lab Miscellaneous-on 03-12 Lab Miscellaneous See Ref Report Invalid Interpretation [facility] Comment on above: Result Comment: Perf ormed at: [address] [id number] PhD João Blankenship See scanned report Performed at: [address] [id number] PhD João Blankenship Performed By: #### 1 [id number] ####[facility] [address] [place] [address] Reference Lab Reporton 03-12 Reference Lab Report [id number]#1.00TIFF Normal [facility] Lab Miscellaneous-LCon 03-08 Lab Miscellaneous see ref manager lab Invalid Interpretation C ode [facility] Comment on above: Performed By: #### 1 [id number] ####[facility] [address] [place] [address] Reference Lab Reporton 03-08 Reference Lab Report [id number]#1.00TIFF Normal [facility] Auto Diffon 03-07-2023 Basophils/100 WBC (Bld) 0.7 % Normal 0.0-2.0 [facility] Comment on above: Order Comment: Order Added by Discern Expert. Performed By: #### 2 310370, [id number], [id number] ####[facility] [address] [place] [address] Basophils/Leukocytes Auto (B ld) [Pure # fraction] 0.1 E9/L Normal 0.0-0.2 [facility] Comment on above: Order Comment: Order Added by Discern Expert. Performed By: #### 2 307671, 1704007, 2051550 ####[address] [address] Eosinophils/100 WBC (Bld) 2.6 % Normal 0.0-8.0 [facility] Comment on above: Order Comment: Order Added by Discern Expert. Performed By: #### 2 766257, 6522825, 9389956 ####[facility] [address] [place] [address] Eosinophils/Leukocytes Auto (Bld) [Pure # fraction] 0.2 E9/L Normal 0.0-0.5 [facility] Comment on above: Order Comment: Order Added by Discern Expert. Performed By: #### 2 068057, 0321883, 9730880 ####[facility] [address] [facility] [place] [address] Lymphocytes/100 WBC (Bld) 18.6 % Normal 14.0-50.0 [facility] Comment on above: Order Comment: Order Added by Discern Expert. Performed By: #### 2 206301, 0044515, 8004124 ####[facility] [address] [place] [address] Lymphocytes/Leukocytes Auto (Bld) [Pure # fraction] 1.3 E9/L Normal 1.0-4.0 [facility] Comment on above: Order Comment: Order Added by Discern Expert. Performed By: #### 2 149427, 7492644, 3883146 ####[facility] [address] [address] Monocytes/100 WBC (Bld) 10.3 % Normal 4.0-14.0 [facility] Comment on above: Order Comment: Order Added by Discern Expert. Performed By: #### 2 646917, 3040700, 2894587 ####[facility] [address] [place] [address] Monocytes/Leukocytes Auto (B ld) [Pure # fraction] 0.7 E9/L Normal 0.2-1.0 [facility] Comment on above: Order Comment: Order Added by Discern Expert. Performed By: #### 2 554045, 2467692, 0614965 ####[facility] [address] [place] [address] Neutrophils/100 WBC (Bld) 67.8 % Normal 36.0-75.0 [facility] Comment on above: Order Comment: Order Added by Discern Expert. Performed By: #### 2 130356, 0704403, 6409355 ####[facility] [address] [place] [address] Neutrophils/Leukocytes Auto (Bld) [Pure # fraction] 4.8 E9/L Normal 2.0-7.5 [facility] Comment on above: Order Comment: Order Added by Discern Expert. Performed By: #### 2 011810, 0720746, 1638641 ####[facility] [address] [place] [address] CBC w/ Auto Diffon 3 Erythrocyte distribution wid th (RBC) [Ratio] 13.1 % Normal 10.9-14.2 [facility] Comment on above: Performed By: #### 2 179454, 0328038, 1536751 ####[address] [address] Hematocrit (Bld) [Volume fraction] 39.2 % Normal 37.7-49.0 [facility] Comment on above: Performed By: #### 2 518011, 5273109, 5326483 ####[address] [address] Hemoglobin (Bld) [Mass/Vol] 13.4 g/dL Low 13.5-17. 5 [facility] Comment on above: Performed By: #### 2 752637, 1037562, 5931043 ####[address] [address] MCH (RBC) [Entitic mass] 29.0 pg Normal 27.0-34.0 [facility] Comment on above: Performed By: #### 2 692783, 7745448, 6152590 ####[address] [address] MCHC (RBC) [Mass/Vol] 34.3 g/dL Normal 31.4-36.0 [facility] Comment on above: Performed By: #### 2 988885, 7666547, 2560698 ####[address] [address] MCV (RBC) [Entitic vol] 84.6 fL Normal 80.0-100.0 [facility] Comment on above: Performed By: #### 2 236682, 0541084, 9608242 ####[address] [address] Platelet mean volume (Bld) [Entitic vol] 7.7 fL Normal 6.4-10.8 [facility] Comment on above: Performed By: #### 2 616459, 3040150, 5117041 ####[facility] [address] [place] [address] Platelets (Bld) [#/Vol] 261.0 E9/L Normal 150.0-500.0 [facility] Comment on above: Performed By: #### 2 869087, 2081564, 5212157 ####[facility] [address] [place] [address] RBC (Bld) [#/Vol] 4.6 E12/L Normal 4.3-5.9 [facility] Comment on above: Performed By: #### 2 797843, 5130476, 1333876 ####[facility] [address] [place] [address] WBC corrected for nucl RBC A uto (Bld) [#/Vol] 7.1 E9/L Normal 4.0-11.0 [facility] Comment on above: Performed By: #### 2 579798, 9088963, 8030678 ####[facility] [address] [place] [address] CHEMISTRYOrdered By: SYSTEM SYSTEM on 03-07-2023 CRP [Mass/Vol] 1.8 mg/dL Normal <=1.9mg/dL [facility] Remis ol CRPon 03-07-2023 CRP [Mass/Vol] 1.8 mg/dL Normal <=1.9 [facility] Comment on above: Performed By: #### 2 557676, 0918709, 2393521 ####[facility] [address] [place] [address] Consent for Treatmenton Consent for Treatment [id number] Normal [facility] Erythrocyte Sedimentation Ra aniya 03-07-2023 ESR (Bld) [Velocity] 9 mm/h Normal 0-19 [facility] Comment on above: Result Comment: PERF ORMED BY: [place] [address] PATHOLOGIST MASTER COSMETOLOGIST BARI GREENE M.D. Performed By: #### E SR #### [address] Erythrocyte sedimentation ra te by Photometric methodOrdered By: Huan Cowan on 03-07-2023 ESR Photometric method (Bld) [Velocity] 9 mm/hr 0-19 [facility] HEMATOLOGYOrdered By: SYSTEM SYSTEM on 03-07-2023 Basophils/100 WBC (Bld) 0.7 % Normal 0.0 - 2.0 % [facility] HemeAutoSS Basophils/Leukocytes Auto (B ld) [Pure # fraction] 0.1 E9/L Normal 0.0 - 0.2 E9/L [facility]eAuto[facility] Eosinophils/100 WBC (Bld) 2.6 % Normal 0.0 - 8.0 % [facility]eAuto[facility] Eosinophils/Leukocytes Auto (Bld) [Pure # fraction] 0.2 E9/L Normal 0.0 - 0.5 E9/L [facility] HemeAutoS S Lymphocytes/100 WBC (Bld) 18.6 % Normal 14.0 - 50. 0 % [facility] HemeAuto[facility] Lymphocytes/Leukocytes Auto (Bld) [Pure # fraction] 1.3 E9/L Normal 1.0 - 4.0 E9/L [facility] HemeAutoS S Monocytes/100 WBC (Bld) 10.3 % Normal 4.0 - 14.0 % [facility]eAuto[facility] Monocytes/Leukocytes Auto (B ld) [Pure # fraction] 0.7 E9/L Normal 0.2 - 1.0 E9/L [facility] Neutrophils/100 WBC (Bld) 67.8 % Normal 36.0 - 75. 0 % [facility]eAuto[facility] Neutrophils/Leukocytes Auto (Bld) [Pure # fraction] 4.8 E9/L Normal 2.0 - 7.5 E9/L [facility] HemeAutoS S HEMATOLOGYOrdered By: Juanita Chen on 03-07-2023 Erythrocyte distribution wid th (RBC) [Ratio] 13.1 % Normal 10.9 - 14.2 % [facility] HemeAuto[facility] Hematocrit (Bld) [Volume fraction] 39.2 % Normal 37.7 - 49.0 % [facility] HemeAutoSS Hemoglobin (Bld) [Mass/Vol] 13.4 g/dL Low 13.5 - 1 7.5 gm/dL [facility] HemeAutoSS MCH (RBC) [Entitic mass] 29.0 pg Normal 27.0 - 34.0 pg [facility] HemeAutoSS MCHC (RBC) [Mass/Vol] 34.3 g/dL Normal 31.4 - 36.0 gm /dL [facility] HemeAutoSS MCV (RBC) [Entitic vol] 84.6 fL Normal 80.0 - 100.0 fL [facility] HemeAutoSS Platelet mean volume (Bld) [Entitic vol] 7.7 fL Normal 6.4 - 10.8 fL [facility] HemeAutoSS Platelets (Bld) [#/Vol] 261.0 E9/L Normal 150.0 - 500. 0 E9/L [facility] HemeAutoSS RBC (Bld) [#/Vol] 4.6 E12/L Normal 4.3 - 5.9 E12/L [facility] HemeAutoSS WBC corrected for nucl RBC A uto (Bld) [#/Vol] 7.1 E9/L Normal 4.0 - 11.0 E9/L [facility] HemeAutoSS Lab Miscellaneous-LCon 03-07 Test Code TO [facility] Invalid Interpretation Code [facility] Comment on above: Performed By: #### 1 [id number] ####[facility] [address] [place] [address] Test Code 560102 Invalid Interpretation Code [facility] Comment on above: Performed By: #### 1 [id number] ####[facility] [address] [place] [address] Test Name SED RATE/FIREAL Invalid Interpretation Code [facility] Comment on above: Performed By: #### 1 [id number] ####[facility] [address] [place] [address] Test Name [place] 6 Invalid Interpretation Code [facility] Comment on above: Performed By: #### 1 [id number] ####[facility] [address] [place] [address] Physician Orderon 03-07-2023 Physician Order [id number]#1.00TIFF Normal [facility] Reference Laboratory Testing Ordered By: Yasmeen Ca on 03-07-2023 Sodium [Moles/Vol] 718005 mmol/L Invalid Interpretation Co de [facility] SendOutsSS Test Code TO [facility] Invalid Interpretation Code [facility] SendOutsSS Test Name SED RATE/FIREAL Invalid Interpretation Code [facility] SendOutsSS Test Name [place] 6 Invalid Interpretation Code [facility] SendOutsSS Operative Reporton Operative Report [id number]#1.00TIFF Normal [facility] Formson 02-27-2023 Forms [id number]#1.00TI FF [facility] Provider Letteron 02-27-2023 Provider Letter (Inserted Image. Jessica ble to display) [address] [id number] February 27, 2023 NEHAL BAIG [address] [place] [address] : [address] Mazariegos, The above patient has been evaluated at your request for preoperative clearance. After assessment of available pertinent labs and diagnostic tests, I feel this patient is medically optimized for surgery. Final discretion of whether the patient is cleared for surgery remains up to the surgeon/anesthesiologist. Thank you, MOSHE Mota Normal [facility] Auto Diffon 02-26-2023 Basophils/100 WBC (Bld) 0.6 % Normal 0.0-2.0 [facility] Comment on above: Order Comment: Order Added by Discern Expert. Performed By: #### 2 337299, 1345649 ####[facility] [address] [place] [address] Basophils/Leukocytes Auto (B ld) [Pure # fraction] 0.1 E9/L Normal 0.0-0.2 [facility] Comment on above: Order Comment: Order Added by Discern Expert. Performed By: #### 2 979373, 0476136 ####[address] [address] Eosinophils/100 WBC (Bld) 2.3 % Normal 0.0-8.0 [facility] Comment on above: Order Comment: Order Added by Discern Expert. Performed By: #### 2 433725, 2487786 ####[address] [address] Eosinophils/Leukocytes Auto (Bld) [Pure # fraction] 0.2 E9/L Normal 0.0-0.5 [facility] Comment on above: Order Comment: Order Added by Wilbert Expert. Performed By: #### 2 457291, 7679295 ####[address] [address] Lymphocytes/100 WBC (Bld) 16.2 % Normal 14.0-50.0 [facility] Comment on above: Order Comment: Order Added by Discern Expert. Performed By: #### 2 008723, 9783476 ####[address] [address] Lymphocytes/Leukocytes Auto (Bld) [Pure # fraction] 1.5 E9/L Normal 1.0-4.0 [facility] Comment on above: Order Comment: Order Added by Wilbert Expert. Performed By: #### 2 040535, 3574560 ####[address] [address] Monocytes/100 WBC (Bld) 6.8 % Normal 4.0-14.0 [facility] Comment on above: Order Comment: Order Added by Discern Expert. Performed By: #### 2 394967, 0940523 ####[address] [address] Monocytes/Leukocytes Auto (B ld) [Pure # fraction] 0.6 E9/L Normal 0.2-1.0 [facility] Comment on above: Order Comment: Order Added by Discern Expert. Performed By: #### 2 876389, 6591335 ####[address] [place] [address] Neutrophils/100 WBC (Bld) 74.1 % Normal 36.0-75.0 [facility] Comment on above: Order Comment: Order Added by Discern Expert. Performed By: #### 2 561612, 5460853 ####[address] [address] Neutrophils/Leukocytes Auto (Bld) [Pure # fraction] 6.6 E9/L Normal 2.0-7.5 [facility] Comment on above: Order Comment: Order Added by Discern Expert. Performed By: #### 2 963311, 4018978 ####[address] [address] CBC w/ Auto Diffon Erythrocyte distribution wid th (RBC) [Ratio] 13.6 % Normal 10.9-14.2 [facility] Comment on above: Performed By: #### 2 923994, 4587258 ####[address] [address] Hematocrit (Bld) [Volume fraction] 40.5 % Normal 37.7-49.0 [facility] Comment on above: Performed By: #### 2 292839, 6599177 ####[address] [address] Hemoglobin (Bld) [Mass/Vol] 13.9 g/dL Normal 13.5-17. 5 [facility] Comment on above: Performed By: #### 2 948470, 3237009 ####[address] [address] MCH (RBC) [Entitic mass] 28.9 pg Normal 27.0-34.0 [facility] Comment on above: Performed By: #### 2 406240, 4674450 ####[address] [address] MCHC (RBC) [Mass/Vol] 34.3 g/dL Normal 31.4-36.0 [facility] Comment on above: Performed By: #### 2 631250, 3593131 ####[facility] [address] [place] [address] MCV (RBC) [Entitic vol] 84.2 fL Normal 80.0-100.0 [facility] Comment on above: Performed By: #### 2 686393, 4152150 ####[address] Platelet mean volume (Bld) [Entitic vol] 7.7 fL Normal 6.4-10.8 [facility] Comment on above: Performed By: #### 2 731475, 3891078 ####[address] [address] Platelets (Bld) [#/Vol] 244.0 E9/L Normal 150.0-500.0 [facility] Comment on above: Performed By: #### 2 467471, 8909499 ####[address] [address] RBC (Bld) [#/Vol] 4.8 E12/L Normal 4.3-5.9 [facility] Comment on above: Performed By: #### 2 092042, 4846499 ####[address] [address] WBC corrected for nucl RBC A uto (Bld) [#/Vol] 8.9 E9/L Normal 4.0-11.0 [facility] Comment on above: Performed By: #### 2 140028, 9965271 ####[address] [address] Consent for Treatmenton 01-31 Consent for Treatment [id number] Normal [facility] HEMATOLOGYOrdered By: SYSTEM SYSTEM on 02-26-2023 Basophils/100 WBC (Bld) 0.6 % Normal 0.0 - 2.0 % [facility]eAutoSS Basophils/Leukocytes Auto (B ld) [Pure # fraction] 0.1 E9/L Normal 0.0 - 0.2 E9/L [facility]eAuto[facility] Eosinophils/100 WBC (Bld) 2.3 % Normal 0.0 - 8.0 % [facility] HemeAutoSS Eosinophils/Leukocytes Auto (Bld) [Pure # fraction] 0.2 E9/L Normal 0.0 - 0.5 E9/L [facility] S Lymphocytes/100 WBC (Bld) 16.2 % Normal 14.0 - 50. 0 % [facility] Lymphocytes/Leukocytes Auto (Bld) [Pure # fraction] 1.5 E9/L Normal 1.0 - 4.0 E9/L [facility] S Monocytes/100 WBC (Bld) 6.8 % Normal 4.0 - 14.0 % [facility] Monocytes/Leukocytes Auto (B ld) [Pure # fraction] 0.6 E9/L Normal 0.2 - 1.0 E9/L [facility] Neutrophils/100 WBC (Bld) 74.1 % Normal 36.0 - 75. 0 % [facility] Neutrophils/Leukocytes Auto (Bld) [Pure # fraction] 6.6 E9/L Normal 2.0 - 7.5 E9/L [facility] S HEMATOLOGYOrdered By: Krystian Earl on 02-26-2023 Erythrocyte distribution wid th (RBC) [Ratio] 13.6 % Normal 10.9 - 14.2 % [facility] Hematocrit (Bld) [Volume fraction] 40.5 % Normal 37.7 - 49.0 % [facility] Hemoglobin (Bld) [Mass/Vol] 13.9 g/dL Normal 13.5 - 1 7.5 gm/dL [facility] MCH (RBC) [Entitic mass] 28.9 pg Normal 27.0 - 34.0 pg [facility] MCHC (RBC) [Mass/Vol] 34.3 g/dL Normal 31.4 - 36.0 gm /dL [facility] MCV (RBC) [Entitic vol] 84.2 fL Normal 80.0 - 100.0 fL [facility] Platelet mean volume (Bld) [Entitic vol] 7.7 fL Normal 6.4 - 10.8 fL [facility] Platelets (Bld) [#/Vol] 244.0 E9/L Normal 150.0 - 500. 0 E9/L [facility] HemeAutoSS RBC (Bld) [#/Vol] 4.8 E12/L Normal 4.3 - 5.9 E12/L [facility] HemeAutoSS WBC corrected for nucl RBC A uto (Bld) [#/Vol] 8.9 E9/L Normal 4.0 - 11.0 E9/L [facility] HemeAutoSS Physician Orderon 02-26-2023 Physician Order [id number]#1.00TIFF Normal [facility] CHEMISTRYOrdered By: SYSTEM SYSTEM on 02-25-2023 CRP [Mass/Vol] 6.7 mg/dL High <=1.9mg/dL [facility] Remis ol CRPon 02-25-2023 CRP [Mass/Vol] 6.7 mg/dL High <=1.9 [facility] Comment on above: Performed By: #### 2 [id number] ####[facility] [address] [place] [address] Consent for Treatmenton 01-31 Consent for Treatment [id number]#1.00TIFF Normal [facility] ED Note-Physicianon 02-26-20 ED Note-Physician [id number]# 1.00TIFF Normal [facility] Lab Miscellaneous-LCon 02-25 Test Code 162197 Invalid Interpretation Code [facility] Comment on above: Performed By: #### 1 [id number] ####[facility] [address] [place] [address] Test Name Interleukin-6 Invalid Interpretation Code [facility] Comment on above: Performed By: #### 1 [id number] ####[facility] [address] [place] [address] Physician Orderon 02-25-2023 Physician Order [id number]#1.00TIFF Normal [facility] RAD - MISCon 02-25-2023 RAD - MISC [id number]#1.00TI FF Normal [facility] Reference Laboratory Testing Ordered By: Elysia Oseguera on 02-25-2023 Sodium [Moles/Vol] 258850 mmol/L Invalid Interpretation Co de [facility] Test Name Interleukin-6 Invalid Interpretation Code [facility] SendOutsSS Consultation Noteon 02-20-20 Consultation Note [id number]#1.00TIFF Normal [facility] Operative Reporton 3 Operative Report [id number]#1.00TIFF Normal [facility] Consultation Noteon 01-30-20 Consultation Note [id number]#1.00TIFF Normal [facility] RAD - MRI Reporton 3 RAD - MRI Report [id number]#1.00TIFF [facility] XR cerv spine AP/LAT/FLX/EXT on 01-17-2023 XR cerv spine AP/LAT/FLX/[place] [address] XRay Report Signed Patient: Nehal Baig MR#: [id number] 8 : 1970 Acct:[id number] Age/Sex: 52 / M ADM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 Remisol Potassium [Moles/Vol] 4.0 mmol/L Normal 3.5 - 5.3 mmol /L [facility] Remisol Sodium [Moles/Vol] 136 mmol/L Normal 135 - 145 mmol/L [facility] Remisol Urea nitrogen [Mass/Vol] 23 mg/dL High 5 - 21 mg/d L FT Remisol HEMATOLOGYOrdered By: Tami Landin on 08-08-2021 Erythrocyte distribution wid th (RBC) [Ratio] 13.0 % Normal 10.9 - 14.2 % [facility] HemeAutoSS Hematocrit (Bld) [Volume fraction] 40.3 % Normal 37.7 - 49.0 % [facility] HemeAutoSS Hemoglobin (Bld) [Mass/Vol] 14.3 g/dL Normal 13.5 - 1 7.5 gm/dL [facility] HemeAutoSS MCH (RBC) [Entitic mass] 29.7 pg Normal 27.0 - 34.0 pg [facility] HemeAutoSS MCHC (RBC) [Mass/Vol] 35.6 g/dL Normal 31.4 - 36.0 gm /dL [facility] HemeAutoSS MCV (RBC) [Entitic vol] 83.6 fL Normal 80.0 - 100.0 fL [facility] HemeAutoSS Platelet mean volume (Bld) [Entitic vol] 8.9 fL Normal 6.4 - 10.8 fL [facility] HemeAutoSS Platelets (Bld) [#/Vol] 190.0 E9/L Normal 150.0 - 500. 0 E9/L [facility] HemeAutoSS RBC (Bld) [#/Vol] 4.8 E12/L Normal 4.3 - 5.9 E12/L [facility] HemeAutoSS WBC corrected for nucl RBC A uto (Bld) [#/Vol] 4.8 E9/L Normal 4.0 - 11.0 E9/L FT HemeAutoSS URINALYSISOrdered By: Anita subramanian on 08-08-2021 Bacteria LM Ql (Urine sed) Trace /HPF Normal Trace/HPF [facility] UA Auto SS Bilirubin Ql (U) Negative (08/08/21 10:04 AM) Normal Negative [facility] UA Auto SS Clarity (U) Clear (08/08/21 10:04 AM) Normal Clear [facility] UA Auto SS Color (U) Yellow (08/08/21 10:04 AM) Normal Yellow [facility] UA Auto SS Crystals LM Ql (Urine sed) Present (08/08/21 10:04 AM) Normal [facility] UA Auto SS Epithelial cells.squamous LM.HPF (Urine sed) [#/Area] 0-2 /HPF Normal 0-2/HPF [facility] UA Auto SS Glucose Test strip (U) [Mass/Vol] Negative (08/08/21 10:04 AM) Normal Negative [facility] UA Auto SS Hemoglobin Ql (U) Negative (08/08/21 10:04 AM) Normal Negative [facility] UA Auto SS Ketones (U) [Mass/Vol] Negative (08/08/21 10:04 AM) Normal Negative [facility] UA Auto SS Turin.plasma/Lithi um.RBC (Bld) [Mass ratio] 0-3 /HPF Normal 0-3/HPF [facility] UA Auto SS Mucus Ql (Urine sed) 1+ (08/08/21 10:04 AM) Normal [facility] Auto SS Nitrite Ql (U) Negative (08/08/21 10:04 AM) Normal Negative [facility] UA Auto SS pH (U) 6.0 *NA* (08/08/21 10:04 AM) Invalid Interpretation Code 5.0 - 9.0 [facility]A Auto SS Protein (U) [Mass/Vol] Negative (08/08/21 10:04 AM) Normal Negative [facility] UA Auto SS Specific gravity (U) [Rel density] 1.025 *NA* (08/08/21 10:04 AM) Invalid Interpretation Code 1.005 - 1.030 [facility] UA Auto SS UA Spec Desc Clean Catch (08/08/21 10:04 AM) Normal [facility] UA Auto SS Urobilinogen Qn (U) [id number] {Sean'U}/dL Normal 0.0 - 1.0 EU/dL [facility] Auto SS WBC Auto Ql (U) Negative (08/08/21 10:04 AM) Normal Negative [facility] UA Auto SS WBC LM.HPF (Urine sed) [#/Area] 0-5 /HPF Normal 0-5/HPF [facility] UA Auto SS ANES POSTPROC EVALon 022 ANES POSTPROC EVAL HNO ID: [id number] Author: Lucy Flanagan MD Service: Anesthesiology Author Type: Anesthesiologist Type: Anesthesia Postprocedure Evaluation Filed: 07/31/2021 12:56 PM Note Text: POST ANESTHESIA EVALUATION NOTE : 1970 Procedure Summary Date: 07/31/21 Room / Location: [facility] Anesthesia Start: 1053 Anesthesia Stop: 1145 Procedure: COLONOSCOPY DIAGNOSTIC Diagnosis: Dark stools (OTHER) Scheduled Providers: Jayy Patel MD; Cori Ashley APRN.CHUCKING MACHINE SET UP OPERATOR; Lucy Flanagan MD Responsible Provider: Lucy Flanagan MD Anesthesia Type: MAC ASA Status: 3 Anesthesia Type: MAC Last Vitals Vitals Value Taken Time BP 146/86 07/31/21 1215 Temp 36.3 ?C (97.3 ?F) 07/31/21 1145 Pulse 79 07/31/21 1215 Resp 16 07/31/21 1255 SpO2 95 % 07/31/21 1215 Post Anesthesia Patient Status Patient Evaluation: PACU. PACU/ICU Patient Condition: stable. Anticipated Disposition: phase 2 then home. Neurological Status: aware and responsive. Pulmonary Status: breathing comfortably on room air Airway Control: returned to baseline unsupported. Cardiovascular Status: stable. Pain Management: clinically adequate - multimodal analgesia pain management approach Postoperative Hydration: acceptable. Intraoperative Events: no significant anesthesia events Post Operative Nausea/Vomiting Status: no significant post operative nausea or vomiting Anesthetic Observations: Recommendation: continue current plan of care. Anesthesia Observations No Documentation SIGNATURE: Lucy Flanagan MD PATIENT NAME: Nehal Baig DATE: July 31, 2021 TIME: 12:55 PM CSN: [id number] Normal [facility] ANES PRE-OPon 07-31-2021 ANES PRE-OP HNO ID: [id number] Author: Lucy Flanagan MD Service: Anesthesiology Author Type: Anesthesiologist Type: Anesthesia Preprocedure Evaluation Filed: 07/31/2021 9:50 AM Note Text: ANESTHESIOLOGY DAY OF SURGERY NOTE : 1970 Procedure Information Date/Time: 07/31/21 1030 Scheduled providers: Jayy Patel MD; Cori Ashley APRN.CHUCKING MACHINE SET UP OPERATOR; Lucy Flanagan MD Procedure: COLONOSCOPY DIAGNOSTIC Location: [facility] End[facility] Estimated body mass index is 53.04 kg/m? as calculated from the following: Height as of 07/26/21: 185.4 cm (6' 1 ). Weight as of 07/26/21: 182.3 kg (402 lb). Most recent hematocrit and potassium results: Hematocrit 39.4 07/29/2021 Potassium 4.7 07/29/2021 Relevant Problems ANESTHESIA (+) Obstructive sleep apnea syndrome CARDIO (+) Carotid stenosis, left (+) Essential hypertension PULMONARY (+) Obstructive sleep apnea syndrome (+) Shortness of breath I - PHYSICAL EVALUATION AIRWAY Patient intubated: No. Tracheostomy tube not present Mallampati: IV. TM distance: >3 FB. Neck ROM: full ROM without neurological symptoms. Mouth opening: non-adequate. Short neck: yes. Thick neck: yes DENTAL Dental findings: teeth intact. Additional exam findings: no II - ANESTHESIA PLAN ASA Score: 3 Anesthetic Plan: MAC The patient is not a current smoker. NPO Status: adequate Monitoring plan: standard ASA. Postoperative analgesic plan: parenteral or oral opioids. Informed Consent Anesthetic risks, benefits, alternatives, personnel and consent discussed: yes. Patient / Responsible Democrat agrees to proceed: yes Patient / Surrogate agrees to blood products: blood products not planned Significant changes in the patient condition since the History and Physical, not otherwise documented in primary service progress note: no. Potential Anesthesia issues that may suggest increased risk of complications or contraindication to planned procedure: none. Vitals Value Taken Time BP 133/81 07/31/21924 Pulse Resp 18 07/31/21924 Temp 36.7 ?C (98.1 ?F) 07/31/21924 SpO2 96 % 07/31/21924 Outpatient Medications as of 07/31/2021 Medication Sig - atorvastatin (LIPITOR) 20 mg tablet Take 1 tablet by mouth daily at bedtime. - lisinopril (ZESTRIL, PRINIVIL) 10 mg tablet Take 1 tablet by mouth once daily. - albuterol HFA (PROAIR HFA) 90 mcg/actuation inhaler Inhale 2 Puffs as instructed every 4 hours as needed for wheezing/shortness of breath. - Omeprazole 40 mg capsule Take 1 capsule by mouth once daily. - fluticasone (FLOVENT HFA) 110 mcg/actuation inhaler Inhale 2 Puffs as instructed twice daily. via spacer - peg 3350-Electrolytes (GOLYTELY) 236-22.74-6.74 -5.86 gram suspension Refer to printed prep instructions from your provider. Facility-Administered Medications as of 07/31/2021 Medication Dose Route Frequency - lactated ringers iv infusion 30 mL/hr INTRAVENOUS CONTINUOUS I have interviewed and examined the patient. I have reviewed the medical record and/or the pre-anesthesia evaluation, pertinent labs, and test results. This contains updated information obtained within 48 hours of Surgery/Procedure. SIGNATURE: Lucy Flanagan MD PATIENT NAME: Nehal Baig DATE: July 31, 2021 TIME: 9:49 AM CSN: [id number] Normal [facility] COLONOSCOPY [facility]STICon [facility] ic HISTORY PHYSICALon HISTORY PHYSICAL HNO ID: [id number] Author: Jayy Patel MD Service: General Surgery Author Type: Physician Type: HANDP Filed: 07/31/2021 11:01 AM Note Text: UPDATED HISTORY AND PHYSICAL EXAMINATION SERVICE DATE: 07/31/2021 SERVICE TIME: 10:58 AM PHYSICAL EXAM MUST BE COMPLETED ON ADMISSION The History and Physical (completed in the past 30 days) has been reviewed and the patient has been examined. The contents accurately reflect the patient's condition with the following additions or revisions since the HANDP was completed. Examination indicates no changes. This HANDP can be found in the Electronic Medical Record. SIGNATURE: Jayy Patel MD PATIENT NAME: Nehal Baig DATE: July 31, 2021 TIME: 10:58 AM Normal [facility] SURGICAL PATHOLOGYon 022 CASE REPORT Normal [facility] Comment on above: Order Comment: Tessa flores Type: TISSUE SPECIMEN [facility] Address: [address] [place] [address] Result Comment: Surg ica Pathology Report Case: [id number] Authorizing Provider: Jayy Patel MD Collected: 07/31/2021 11:31 AM Ordering Location: [facility] Received: 07/31/2021 02:15 PM Pathologist: Luis F Quiroz MD Specimen: SIGMOID COLON POLYP Performed By: #### S #### [facility] CLIA [id number] [address] [place] [address] FINAL DIAGNOSIS Normal [facility] Comment on above: Order Comment: Tessa flores Type: TISSUE SPECIMEN [facility] Address: [address] [place] [address] Result Comment: Sigm oid colon polyp, biopsy: - Tubular adenoma. JEL 08/01/2021 Performed By: #### S #### [facility] CLIA [id number] [address] [place] [address] FINAL PERFORMING LAB Normal [facility] Comment on above: Order Comment: Tessa flores Type: TISSUE SPECIMEN [facility] Address: [address] [place] [address] Result Comment: Diag nostic interpretation performed at [facility], [address] [place] [address] CLIA# [id number] Vba Developer: Nehal Cid M.D. Performed By: #### S #### [facility] CLIA [id number] [address] [place] [address] [place] GROSS DESCRIPTION Normal [facility] Comment on above: Order Comment: Speci men Type: TISSUE SPECIMEN [facility] Address: [address] [place] [address] Result Comment: A. S IGMOID COLON POLYP. Received in formalin are multiple pieces of kaufman, soft tissue aggregating to 1.8 x 0.3 x 0.2 cm. Totally submitted in one cassette. SS July 31, 2021 7:11 PM Gross examination performed at [facility], [address] [place] [address] Performed By: #### S #### [facility] CLIA [id number] [address] [place] [address] [place] CBC panel Auto (Bld)on 07-29 Erythrocyte distribution wid th (RBC) [Ratio] 12.5 % Normal 11.5-15.0 [facility] Comment on above: Order Comment: Speci men Type: URINE SPECIMEN [facility] Address: [address] [place] [address] Performed By: #### L [id number] #### [facility] CLIA [id number] [address] [place] [address] [place] Hematocrit (Bld) [Volume fraction] 39.4 % Normal 3 9.0-51.0 [facility] Comment on above: Order Comment: Speci men Type: URINE SPECIMEN [facility] Address: [address] [place] [address] Performed By: #### L [id number] #### [facility] CLIA [id number] [address] [place] [address] [place] Hemoglobin (Bld) [Mass/Vol] 13.6 g/dL Normal 13.0-17. 0 [facility] Comment on above: Order Comment: Speci men Type: URINE SPECIMEN [facility] Address: [address] [place], [place] [address] Performed By: #### L [id number] #### [facility] CLIA [id number] [address] [place] [address] [place] MCH (RBC) [Entitic mass] 29.3 pg Normal 26.0-34.0 [facility] Comment on above: Order Comment: Speci men Type: URINE SPECIMEN [facility] Address: [address] [place], [place] [address] Performed By: #### L [id number] #### [facility] CLIA [id number] [address] [place] [address] [place] MCHC (RBC) [Mass/Vol] 34.5 g/dL Normal 30.5-36.0 [facility] Comment on above: Order Comment: Speci men Type: URINE SPECIMEN [facility] Address: [address] [place], [place] [address] Performed By: #### L [id number] #### [facility] CLIA [id number] [address] [place] [address] [place] MCV (RBC) [Entitic vol] 84.9 fL Normal 80.0-100.0 [facility] Comment on above: Order Comment: Speci men Type: URINE SPECIMEN [facility] Address: [address] [place], [place] [address] Performed By: #### L [id number] #### [facility] CLIA [id number] [address] [place] [address] [place] Nucleated RBC (Bld) [#/Vol] 10*3/uL Normal <0.01 [facility] Comment on above: Order Comment: Speci men Type: URINE SPECIMEN [facility] Address: [address] [place], [place] [address] Performed By: #### L [id number] #### [facility] CLIA [id number] [address] [place] [address] [place] Platelet mean volume (Bld) [ Entitic vol] 9.9 fL Normal 9.0-12.7 [facility] Comment on above: Order Comment: Speci men Type: URINE SPECIMEN [facility] Address: [address] [place] [address] Performed By: #### L [id number] #### [facility] CLIA [id number] [address] [place] [address] [place] Platelets (Bld) [#/Vol] 187 10*3/uL Normal 150-400 [facility] Comment on above: Order Comment: Speci men Type: URINE SPECIMEN [facility] Address: [address] [place] [address] Performed By: #### L [id number] #### [facility] CLIA [id number] [address] [place] [address] [place] RBC (Bld) [#/Vol] 4.64 10*6/uL Normal 4.20-6.00 [facility] Comment on above: Order Comment: Speci men Type: URINE SPECIMEN [facility] Address: [address] [place] [address] Performed By: #### L [id number] #### [facility] CLIA [id number] [address] [place] [address] [place] WBC (Bld) [#/Vol] 5.29 10*3/uL Normal 3.70-11.00 [facility] Comment on above: Order Comment: Speci men Type: URINE SPECIMEN [facility] Address: [address] [place] [address] Performed By: #### L [id number] #### [facility] CLIA [id number] [address] [place], [place] [id number] [facility] [place] Comprehensive metabolic 2000 panelon 07-29-2021 Albumin [Mass/Vol] 4.6 g/dL Normal 3.9-4.9 [facility] Comment on above: Order Comment: Speci men Type: BLOOD SPECIMENOrdering Facility: [facility] Address: [address] [place] [address] Performed By: #### L IPB, 93154-8 ####[facility] [id number] [place] [id number] [place] ALP [Catalytic activity/Vol] 80 U/L Normal 38-113 [facility] Comment on above: Order Comment: Speci men Type: BLOOD SPECIMENOrdering Facility: [facility] Address: [address] [place] [address] Performed By: #### L IPB, 87755-7 ####[facility] [id number] [place] [id number] [place] ALT [Catalytic activity/Vol] 58 U/L High 10-54 [facility] Comment on above: Order Comment: Speci men Type: BLOOD SPECIMENOrdering Facility: [facility] Address: [address] [place] [address] Performed By: #### L IPB, 32234-4 ####[facility] [id number] [place] [address] [place] Anion gap [Moles/Vol] 7 mmol/L Low 9-18 [facility] Comment on above: Order Comment: Speci men Type: BLOOD SPECIMENOrdering Facility: [facility] Address: [address] [place] [address] Performed By: #### L IPB, 03828-5 ####[facility] [id number] [place] [id number] [place] AST [Catalytic activity/Vol] 39 U/L Normal 14-40 [facility] Comment on above: Order Comment: Speci men Type: BLOOD SPECIMENOrdering Facility: [facility] Address: [address] [place], [place] [address] Performed By: #### L IPB, 66756-7 ####[facility] LAB[facility]IA [id number] [place] [address] [place] Bilirubin [Mass/Vol] 0.4 mg/dL Normal 0.2-1.3 [facility] Comment on above: Order Comment: Speci men Type: BLOOD SPECIMENOrdering Facility: [facility] Address: [address] [place], [place] [address] Performed By: #### L IPB, 66259-8 ####[facility] [id number] [place] [address] [place] Calcium [Mass/Vol] 9.8 mg/dL Normal 8.5-10.2 [facility] Comment on above: Order Comment: Speci men Type: BLOOD SPECIMENOrdering Facility: [facility] Address: [address] [place], [place] [address] Performed By: #### L IPB, 36600-6 ####[facility] LAB[facility] [id number] [place] [address] [place] Chloride [Moles/Vol] 104 mmol/L Normal 97-105 [facility] Comment on above: Order Comment: Speci men Type: BLOOD SPECIMENOrdering Facility: [facility] Address: [address] [place], [place] [address] Performed By: #### L IPB, 31323-3 ####[facility] [id number] [place] [id number] [place] CO2 [Moles/Vol] 28 mmol/L Normal 22-30 [facility] Comment on above: Order Comment: Speci men Type: BLOOD SPECIMENOrdering Facility: [facility] Address: [address] [place], [place] [address] Performed By: #### L IPB, 55065-5 ####[facility] [id number] [place] [address] [place] Creatinine [Mass/Vol] 0.98 mg/dL Normal 0.73-1.22 [facility] Comment on above: Order Comment: Tessa flores Type: BLOOD SPECIMENOrdering Facility: [facility] Address: [address] [place] [address] Performed By: #### L IPB, 21793-9 ####[facility] LAB[facility]IA [id number] [place] [address] [place] ESTIMATED GLOMERULAR FILTRATION RATE 95 mL/min/1.73m??? Normal >=60 [facility] Comment on above: Order Comment: Tessa flores Type: BLOOD SPECIMENOrdering Facility: [facility] Address: [address] [place] [address] Result Comment: Halle mated Glomerular Filtration Rate (eGFR) is calculated using the 2020 CKD-EPI creatinine equation. This equation utilizes serum creatinine, sex, and age as parameters. The creatinine assay has traceable calibration to isotope dilution-mass spectrometry. Refer to KDIGO guidelines for clinical interpretation. In patients with unstable renal function, e.g. those with acute kidney injury, the eGFR may not accurately reflect actual GFR. Performed By: #### L IPB, 40004-2 ####[facility] [id number] [place] [address] [place] Glucose [Mass/Vol] 120 mg/dL High 74-99 [facility] Comment on above: Order Comment: Tessa flores Type: BLOOD SPECIMENOrdering Facility: [facility] Address: [address] [place] [address] Result Comment: The [place] Diabetes Association (ADA) provides guidance for cutoff values for fasting glucose and random glucose. The ADA defines fasting as no caloric intake for at least 8 hours. Fasting plasma glucose results between 100 to 125 mg/dL indicate increased risk for diabetes (prediabetes). Fasting plasma glucose results greater than or equal to 126 mg/dL meet the criteria for diagnosis of diabetes. In the absence of unequivocal hyperglycemia, results should be confirmed by repeat testing. In a patient with classic symptoms of hyperglycemia or hyperglycemic crisis, random plasma glucose results greater than or equal to 200 mg/dL meet the criteria for diagnosis of diabetes. Reference: Standards of Medical Care in Diabetes 2016, [place] Diabetes Association. Diabetes Care. 2016.39(Suppl 1). Performed By: #### L IPB, 61852-5 ####[facility] [id number] [place] [address] [place] Potassium [Moles/Vol] 4.7 mmol/L Normal 3.7-5.1 [facility] Comment on above: Order Comment: Speci men Type: BLOOD SPECIMENOrdering Facility: [facility] Address: [address] [place] [address] Performed By: #### L IPB, 82563-8 ####[facility] [id number] [place] [address] [place] Protein [Mass/Vol] 7.6 g/dL Normal 6.3-8.0 [facility] Comment on above: Order Comment: Speci men Type: BLOOD SPECIMENOrdering Facility: [facility] Address: [address] [place] [address] Performed By: #### L IPB, 87930-9 ####[facility] [id number] [place] [id number] [place] Sodium [Moles/Vol] 139 mmol/L Normal 136-144 [facility] Comment on above: Order Comment: Speci men Type: BLOOD SPECIMENOrdering Facility: [facility] Address: [facility] [place] [address] Performed By: #### L IPB, 58482-2 ####[facility] LAB[facility] [id number] [place] [address] [place] Urea nitrogen [Mass/Vol] 18 mg/dL Normal 9-24 [facility] Comment on above: Order Comment: Speci men Type: BLOOD SPECIMENOrdering Facility: [facility] Address: [address] [place] [address] Performed By: #### L IPB, 06432-0 ####[facility] [id number] [place] [address] [place] HGB A1Con 07-29-2021 Average glucose Estimated fr om glycated hemoglobin (Bld) [Mass/Vol] 117 mg/dL Normal [facility] Comment on above: Order Comment: Tessa flores Type: BLOOD SPECIMENOrdering Facility: [facility] Address: [address] [place] [address] Result Comment: eAG: (Estimated average glucose) is a calculated value from HgbA1c and is office machines sales representative of the average blood glucose level in the last 2-3 month period. Performed By: #### H BA1C ####[facility] RANCHORahe[facility]ENTERIA [id number] [address] [facility] HbA1c (Bld) [Mass fraction] 5.7 % High 4.3-5.6 [facility] Comment on above: Order Comment: Tessa flores Type: BLOOD SPECIMENOrdering Facility: [facility] Address: [address] [place] [address] Result Comment: [place] Diabetes Association guidelines indicate that patients with HgbA1c in the range 5.7-6.4% are at increased risk for development of diabetes, and intervention by lifestyle modification may be beneficial. HgbA1c greater or equal to 6.5% is considered diagnostic of diabetes. Performed By: #### H BA1C ####[facility] RANCHORaheem [facility] LABIA [id number] [place] [id number] [place] [facility] LIPID PANEL BASICon 07-30-19 22 Cholesterol [Mass/Vol] 240 mg/dL High <200 [facility] Comment on above: Order Comment: Tessa flores Type: BLOOD SPECIMENOrdering Facility: [facility] Address: [address] [place] [address] Result Comment: <200 mg/dL, Desirable 200-239 mg/dL, Borderline high >239 mg/dL, High Performed By: #### L IPB, 88609-9 ####[facility] LABIA [id number] [address] Cholesterol in HDL [Mass/Vol] 37 mg/dL Low >39 [facility] Comment on above: Order Comment: Selmadallas flores Type: BLOOD SPECIMENOrdering Facility: [facility] Address: [address] [place] [address] Result Comment: 40-5 9 mg/dL, Acceptable >59 mg/dL, High: Negative risk factor for coronary heart disease <40 mg/dL, Low: Positive risk factor for coronary heart disease Performed By: #### Natalie DENT, 02138-1 ####[facility] [id number] [address] Cholesterol in LDL [Mass/Vol] 175 mg/dL High <100 [facility] Comment on above: Order Comment: Tessa sandra Type: BLOOD SPECIMENOrdering Facility: [facility] Address: [address] [place] [address] Result Comment: <100 mg/dL, Optimal 100-129 mg/dL, Near optimal/above optimal 130-159 mg/dL, Borderline high 160-189 mg/dL, High >189 mg/dL, Very high Secondary prevention optimal LDL Cholesterol levels are recommended to be < 70 mg/dL Performed By: #### Natalie DENT, 78717-7 ####[facility] [id number] [address] Cholesterol in LDL/Cholester ol in HDL [Mass ratio] 4.73 {ratio} High <2.54 [facility] Comment on above: Order Comment: Tessa flores Type: BLOOD SPECIMENOrdering Facility: [facility] Address: [address] [place] [address] Result Comment: Refe rence: 1. National Cholesterol Education Program ATP III Guideline At-A-Glance Quick Desk Reference: National Heart, Lung, and Blood [place]. National Institutes of Health. 2001: NIH Publication No. 01-3305. 2. An International Atherosclerosis Society position paper: global recommendations for the management of dyslipidemia: executive summary, Atherosclerosis. 2014: 232(2):410-413. Performed By: #### Natalie DENT, 79878-8 ####[facility] [id number] [address] [facility] Cholesterol in VLDL [Mass/Vol] 28 mg/dL Normal <30 [facility] Comment on above: Order Comment: Speci men Type: BLOOD SPECIMENOrdering Facility: [facility] Address: [address] [place] [address] Performed By: #### L IPB, 47041-8 ####[facility] [id number] [address] [facility] Cholesterol non HDL [Mass/Vol] 203 mg/dL High <130 [facility] Comment on above: Order Comment: Speci men Type: BLOOD SPECIMENOrdering Facility: [facility] Address: [address] [place] [address] Result Comment: <130 mg/dL, Optimal 130-159 mg/dL, Near optimal/above optimal 160-189 mg/dL, Borderline high 190-219 mg/dL, High >219 mg/dL, Very high Secondary prevention optimal non HDL Cholesterol levels are recommended to be <100 mg/dL Performed By: #### L IPB, 23835-0 ####[facility] [id number] [address] Cholesterol.total/Cholestero l in HDL [Mass ratio] 6.49 {ratio} High <5.10 [facility] Comment on above: Order Comment: Speci men Type: BLOOD SPECIMENOrdering Facility: [facility] Address: [address] [place] [address] Performed By: #### L IPB, 26048-2 ####[facility] LAB[facility]IA [id number] [place] [id number] [place] FASTING TIME 12. hrs Normal [facility] Comment on above: Order Comment: Speci men Type: BLOOD SPECIMENOrdering Facility: [facility] Address: [address] [place] [address] Performed By: #### L IPB, 23919-8 ####[facility] LAB[facility]IA [id number] [place] [address] [place] Triglyceride [Mass/Vol] 140 mg/dL Normal <150 C [facility] Comment on above: Order Comment: Speci men Type: BLOOD SPECIMENOrdering Facility: [facility] Address: [address] [place] [address] Result Comment: <150 mg/dL, Normal 150-199 mg/dL, Borderline high 200-499 mg/dL, High >499 mg/dL, Very high Performed By: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
== END 2023-03-07 12:21 | disposition home or self-care (01) ==
LOC: PM 12:21
PROVIDERS: PCP Nurse Practitioner; Visit Provider Nurse Practitioner
DX: M47.816 Spondylosis without myelopathy or radiculopathy, lumbar region (principal)
CPT/HCPCS: G0463

== ENCOUNTER 2023-03-11 05:59 | Day surgery (SDC) | payer BC, SELFPAY ==
[2023-03-04 13:22] VITALS: BP 128/75; PULSE 86; RESP 20; TEMP 36.5; O2SAT 97; BMI 49.9
[2023-03-11] VITALS (11 sets, daily range): BP systolic 88–130; BP diastolic 42–69; PULSE 81–106; RESP 12–20; TEMP 36–36.5; O2SAT 84–97; BMI 49.1
[2023-03-11 06:08] LABS: Basophils Percent Auto 0.5 % (0.2-2.0); Eosinophils Absolute Auto 0.2 10^3/uL (0.0-0.7); Eosinophils Percent Auto 1.8 % (0.9-7.0); Hematocrit 39.1 % (42.0-54.0); Hemoglobin 13.1 g/dL (14.0-18.0); Immature Granulocytes Abs Auto 0.02 10^3/uL (0.00-0.03); Immature Granulocytes Pct Auto 0.2 % (0.0-0.5); Lymphocytes Absolute Auto 1.4 10^3/uL (1.2-3.8); Lymphocytes Percent Auto 16.7 % (20.5-60.0); Mean Corpuscular HGB Conc 33.5 g/dL (29.9-35.2); Mean Corpuscular Hemoglobin 28.9 pg (25.9-34.0); Mean Corpuscular Volume 86.3 fL (80.0-94.0); Mean Platelet Volume 9.1 fL (9.5-13.5); Monocytes Absolute Auto 0.6 10^3/uL (0.3-0.8); Monocytes Percent Auto 7.3 % (1.7-12.0); Neutrophils Absolute Auto 6.2 10^3/uL (1.4-6.5); Neutrophils Percent Auto 73.5 % (43.0-75.0); Platelet Count 237 10^3/uL (150-450); Red Blood Count 4.53 10^6/uL (4.70-6.10); Red Cell Distribution Width 12.5 % (11.0-15.0); White Blood Count 8.4 10^3/uL (4.0-11.0)
[2023-03-11 06:28] LABS: Glucometer 103 mg/dL (74-106)
[2023-03-11] MEDS: LACTATED RINGER'S SOLUTION 1,000 ML 50 ML IV ×3 (06:50→09:34)
[2023-03-11] MEDS: CEFAZOLIN SODIUM 3,000 MG in 0.9 % SODIUM CHLORIDE 100 ML 200 MG IV (07:34)
--- NOTE | 2023-03-11 09:48 | P.ORON_ITS ---
Brief Operative Note Date of procedure: 03/11/23 Pre-op diagnosis: left Achilles tendon tear sequela, plantar fasciitis Post-op diagnosis: other (left partial Achilles tendon tear sequela, acute on chronic Achilles tendinitis, calcaneal spur and plantar fasciitis) Procedure: PROCEDURES PERFORMED: INTRAOPERATIVE FINDINGS: PROCEDURE IN DETAIL: Patient was identified in pre op and consent was reviewed. Correct side and site were identified and marked. Pre-op antibiotics were started. Patient was brought to OR suite and general anesthesia was administered. Tourniquet applied. then the patient was flipped onto the OR table in a well-padded prone position. Opera tive extremity was prepped and draped in usual sterile fashion. Formal time-out was performed and the foot/ankle were exsanguinated and tourniquet inflated. Stab incision over the medial aspect of the in-step at the glabrous skin junction was used followed by blunt dissection and the medial band of the plantar fascia was identified. Trochar and cannula were then placed medial to lateral. A lateral stab incision was made to allow passage of the trochar and cannula. Camera was inserted into the lateral portal and a hook blade was placed into the medial portal. 50% of the plantar fascia was released and healthy muscle was noted. The site was flushed with saline and instrumentation was removed. Closure with nylon suture was then undertaken. A midline longitudinal incision over the Achilles tendon was performed and a combination of sharp and blunt dissection with all bleeders being coagulated allowed access to the Achilles tendon. The non-insertional and insertional areas of the Achilles tendon were completely exposed. There was significant thickening and nonviable tissue noted in Achilles tendon. The Achilles tendon was then detached from its insertion and a retrocalcaneal spur was noted with retrocalcaneal bursitis with surrounding inflammatory tissue was noted and excised. Nonviable tendon was excised then all chronic tears and scar tissue removed. 50% Of the Achilles required excision. Exostectomy: Attention was then drawn to the retrocalcaneal spur and an osteotome was used to remove all excess bone and inflammatory tissue. A rongeur and rasp were then used to contour the retrocalcaneal to an anatomic appearance. Outer cortical bone was invaded and healthy bleeding was noted which will allow good tendon to bone healing. The area was flushed with copious amounts of s terile saline and a wet lap was placed over the Achilles tendon. FHL harvest/transfer: The deep crural fascia was incised exposing the flexor hallucis longus muscle and tendon. Then while my office clerk assistant placed the foot and great toe in maximum plantar flexion and the tendon was isolated and then brought as far proximal as possible. I then transected the flexor hallucis longus tendon as distally as possible. I then used suture to whipstitch the flexor hallucis longus tendon and needles were cut from the sutures. A wet lap was placed over the tendon with the Achilles. Attention was then redrawn back to the retro-calcaneus and a placed in the superior aspect of the calcaneus and driven through the plantar surface. A stab incision on the plantar foot allowed passage of the guide pin. The FHL tendon was sized to determine appropriate size of the anchor. A cannulated drill was used over the guide pin and drilled to the appropriate depth. The sutures were passed through the guide pin and the pin pulled through the plantar skin. The tendon passed through the drill hole and tension was held on the sutures while holding the foot in slight plantarflexion. A 7 mm tenodesis anchor was placed accordingly to secure the FHL tendon to the calcaneus. Stability was tested and was stable Reattachment: Two drill holes were placed into the posterior calcaneus from posterior to anterior and were placed approximately 2 cm apart in the superior aspect of the posterior calcaneus. A 3.[address] in each of the drill holes. Four of the sutures (two from each anchor) were placed through the Achilles at the proximal insertion. Then two additional drill holes were placed on the inferior aspect of the posterior calcaneus. Then 1 suture from each of the anchors was placed through a 4 mm tenodesis screw. The sutures were tensioned and the anchor placed in the medial drill holes while holding the foot plantarflexed. The sutures were then tied and cut. This step was repeated for the inferior-lateral drill hole. The four remaining sutures from each of the proximal suture anchors were then passed through the medial and lateral aspects of the Achilles. The sutures were then used to tubularize/repair the non- insertional aspect of the Achilles as well as add stability to the insertion. The sutures were tied/cut and the stability of the insertion was tested and were stable. The foot was in 15 degrees of equinus. The surgical site was flushed thoroughly. Incision was then closed in layers. Tourniquet was deflated and a prompt hyperemic response is noted. A dry sterile dressing consisting of Xeroform on the incisions followed by 4 x 4 gauze, ABDs, and Kerlix were applied. Multiple layers of cast padding were then applied to ensure all bony prominences were well-padded. A plaster posterior splint was then applied which was held in place by Stephen wraps. Capillary refill time to all digits was evaluated and had appropriate response. POSTOPERATIVE PLAN: Discharge home under family's care Post op instructions provided verbally and written prescription(s) were placed in chart NWB operative foot/ankle x3 wks or until incision has healed Follow-up in 1 week Implants: Medline 7 mm tenodesis; 3.3 mm suture anchors (x2), & 4.0 mm knotless anchors (x2) Anesthesia: regional and General-ET Surgeon: Estiven Mazariegos Product Development Worker: Drew Arizmendi Estimated blood loss (mL): 10 Condition: stable Disposition: PACU Preoperative Details Reason for procedure: patient is a 52-year-old male who presented to the office for posterior ankle pain and plantar left heel pain. after failing nonsurgical treatment and MRI was obtained which showed evidence of chronic tendinosis and thickening of the distal portion of the Achilles tendon near the insertional area with partial tearing. Plantar fascia showed surrounding inflammation and signs and symptoms of chronic plantar fasciitis. Given his failure to respond to nonsurgical care he wished to proceed with surgical intervention. He was educated all potential risks and benefits including infection and wound as well as recurrence and need for additional surgery. All questions were answered to his satisfaction.
[2023-03-11] MEDS: BETAMETHASONE ACE/BETAMETHASONE SOD PHOS 30 MG/5 ML 6 MG INJ (10:14)
[2023-03-11 10:41] LABS: Glucometer 140 mg/dL (74-106)
--- NOTE | 2023-03-11 10:53 | XR_ITS ---
[facility] [id number] Patient Name: NEHAL BAIG MRN: [id number] date: 1970 Sex: M Assigned Patient Location: [facility] Current Patient Location: [facility] Accession/Order Number: [id number] Exam Date: 03/11/2023 10:48 Report Date: 03/11/2023 23:27 At the request of: MOHAMUD YOU Procedure: XR ankle LT min 3V PROCEDURE: XR ankle LT min 3V HISTORY: postop xr pacu COMPARISON: XR ankle bilateral 01/15/2023 FINDINGS: BONES:Surgical resection of the Achilles tendon enthesophytes and plantar aponeurosis enthesophyte. No bone fracture or dislocation. SOFT TISSUES:Expected postoperative appearance of posterior ankle. Images were obtained to cast material. EFFUSION:None visible. OTHER: Negative. XR/XR ankle LT min 3V IMPRESSION: 1. Postoperative changes as detailed above. Follow-up recommended. Electronically authenticated by: JAYY GIVENS Date: 03/11/2023 23:27
== END 2023-03-11 13:00 | disposition home or self-care (01) ==
PROVIDERS: PCP Nurse Practitioner; Visit Provider Podiatrist Foot & Ankle Surgery
PROC: (CPT 1464; principal; 2023-03-11 07:30)
DX: S86.012S Strain of left Achilles tendon, sequela (principal); M72.2 Plantar fascial fibromatosis; M77.32 Calcaneal spur, left foot; K21.9 Gastro-esophageal reflux disease without esophagitis; E78.00 Pure hypercholesterolemia, unspecified; Z87.442 Personal history of urinary calculi; G47.30 Sleep apnea, unspecified; Z96.619 Presence of unspecified artificial shoulder joint; Z98.52 Vasectomy status; Z79.82 Long term (current) use of aspirin; Z79.899 Other long term (current) drug therapy; I10 Essential (primary) hypertension
CPT/HCPCS: 27650; 27691; 28118; 29893; 36415; 64445; 73610; 82948; 85025; 88305; 88311; C1713; J0702; J1170; J2704

== ENCOUNTER 2023-04-22 07:48 | Day surgery (SDC) | payer BC, SELFPAY ==
--- OUTSIDE RECORDS SUMMARY | 2023-04-22 07:58 | XMS_ITS | CCD ---
Author Name Unknown Address [address] [place] [address] Organization [facility] Care Team Providers Care Funding Coordinator Name Role Phone Pal ADJUNCT TEACHER - [facility] Primary Care Provide r [facility] Primary Care Unavailable JUANITA CARMONA Consulting Unavailable JUANITA CARMONA Attending Unavailable JUANITA CARMONA Admitting Unavailable [facility] ADJUNCT TEACHER.[facility] Primary Care Provider [facility] Primary Care Physician UnavailNicolasa Perry Unavailable Unavailable [facility] Primary Care Physician [facility] ADJUNCT TEACHER.[facility] Primary Care Provider [facility] ADJUNCT TEACHER.[facility] Primary Care Provider [facility] ADJUNCT TEACHER.[facility] Primary Care Provider DR KINGSLEY HERRERA V Consulting Unavailable YRN, DR ARROYO Attending Unavailable YRN, DR ARROYO Admitting Unavailable TOSHA, DR JAYY Marte Consulting Unavailable YRN, DR ARROYO Consulting Unavailable [facility] Referring Unavailable [facility] Primary Care Unavailable ANH MENA Attending Unavailab ANH Morales Referring Unavailab le [facility] Primary Care Unavailable [facility] Primary Care Unavailable [facility] Referring Unavailable [facility] Primary Care Unavailable [facility] Attending Unavailable [facility] Referring Unavailable [facility] Primary Care Unavailable [facility] Primary Care Unavailable TREY SHARMA Attending Unavailable TREY SHARMA Referring Unavailable [facility] Attending Unavailable [facility] Primary Care Unavailable [facility] Primary Care Unavailable [facility] Referring Unavailable [facility] Primary Care Unavailable [facility] Attending Unavailable [facility] Referring Unavailable [facility] Primary Care Unavailable [facility] Referring Unavailable [facility] Primary Care Unavailable [facility] Attending Unavailable [facility] Primary Care Unavailable JAYY PATEL Referring Unavailable [facility] Primary Care Unavailable [facility] Attending Unavailable [facility] Primary Care Unavailable ANH MENA Attending Unavailab le [facility] Referring Unavailable ANH MENA Referring Unavailab TARSHA Willson Attending Unavailable [facility] Primary Care Unavailable [facility] Primary Care Unavailable [facility] Referring Unavailable [facility] Primary Care Unavailable [facility] Referring Unavailable BledsoeRishiJoel Natalie Attending Unavailable Bledsoe, Joel L Admitting Unavailable [facility] Primary Care Unavailable [facility] Primary Care Unavailable BledsoeJoel L Attending Unavailable ELENA ADAMS Attending Unavailable ELENA ADAMS Admitting Unavailable [facility] Primary Care Unavailable Joel Bledsoe L Attending Unavailable [facility] Primary Care Unavailable Bledsoe, Joel L Admitting Unavailable Joel Bledsoe L Attending Unavailable [facility] Care Unavailable BledsoeJoel Attending Unavailable Bledsoe, Joel L Admitting Unavailable [facility] Primary Care Unavailable Kelly Yi Unavailable Pal, ISABELLE-C [facility] Primary Care Provider HAIDER Yi Attending Provider HAIDER Quezada Attending Provider HAIDER Guerrero Primary Care Provider [phone] Siri Quezada Unavailable Vonnie Guerrero Primary Care Physician Kandis Amado Unavailable Pal, MACHINE TURNER-C [facility] Primary Care Provider HAIDER Yi Attending Provider [phone] HAIDER Quezada Attending Provider HADIER Guerrero Primary Care Provider DO Huan Cowan Attending Provider Katya Harrington Unavailable Unavailable Siri Quezada Admitting Unavailable Siri Quezada Attending Unavailable Shehan, [facility] Unavailabl e Siri Quezada Admitting Unavailable Siri Quezada Attending Unavailable Vonnie Guerrero Primary Care Unavailable Siri Quezada Admitting Unavailable Siri Quezada Attending Unavailable Yolanda, Vonnie Moran Primary Care Unavailable Brown, Huan A Admitting Unavailable Brown, Huan A Attending Unavailable Salome Aguillon [facility] Care Unavailabl e Kassidy, Kelly Admitting Unavailable Kassidy, Kelly Attending Unavailable Brown, Huan A Attending Unavailable Brown, Huan A Admitting Unavailable YolandaVonnie wadsworth Attending Unavailable Brown, Huan A Admitting Unavailable Brown, Huan A Attending Unavailable Brown, Huan A Attending Unavailable Brown, Huan A Admitting Unavailable Giventuraitis , Brenotn Reid Attending Unavailable Giventuraitis , Andgorge Reid Attending Unavailable Gieditis , Andrius Vyttam Attending Unavailable BROWN, HUAN A Referring Unavailable BROWN, HUAN A Attending Unavailable BROWN, HUAN A Attending Unavailable BROWN, HUAN A Referring Unavailable Allergies Allergy Classification Reported Allergen(s) Allergy Type Date of Onset Reaction(s) Facility (1 source) No Known Medication Allergies; Translations: [No Known Medication Allergies] Propensity to adverse reactions to drug (disorder) [facility] Repository Medications Current Medications Medication Drug Class(es) Dates Sig (Normalized) Sig (Original) acetaminophen 500 mg oral tablet (6 sources) Start: 08-02-2020 End: 08-07-2020 take 2 [...] hours. Start: 03-01-2019 take 2 tablets by [facility] every six hours as needed for pain acetaminophen 325 mg Tab 650 mg = 2 tab(s), Oral, q6hr, PRN Pain, Refills(s) 0 Start Date: 03/01/19 Status: Ordered take 2 tablets by [facility] every twelve hours Acetaminophen 500 MG 2 tablet Orally bid Active take 1 tablet by tori th every six hours as needed Acetaminophen 500 [...] six hours for wheezing albuterol 0.083% Inh Rosarua 3 mL 2.5 mg, 3 mL, Inhalation, [...] Comment on above: Inhale 2 Puffs as instructed every 4 geno rs as needed for wheezing/shortness of breath. Inhale 2 Puffs as in structed every 4 hours as needed. aspirin 81 mg delayed release oral tablet (8 sources) Platelet Aggregation Inhibitor, Nonsteroidal Anti-inflammatory Drug Start: 9 take 1 tablet by mouth once daily aspirin 81 mg Oral EC Tab 81 mg = 1 tab(s), Oral, Daily, Refills(s) 0, Prophylaxis Start Date: 03/01/19 Status: Ordered Start: 03-01-2019 take 1 tablet by tori th once daily aspirin 81 mg Oral EC [...] day(s), # 9 cap(s), Refills(s) 0, Pharmacy: [id number], 185.5, cm, 08/08/21 12:06:00 EDT, Height/Length Dosing, 179.2, kg, 08/08/21 12:06:00 EDT, Weight Dosing Start Date: 08/23/21 Stop Date: 08/26/21 Status: Ordered cholecalciferol 0.05 mg oral tablet (2 sources) Vitamin D take 1 tablet by mouth [...] constipation, # 20 cap(s), Refills(s) 0, Pharmacy: [id number], 185.5, cm, 08/08/21 12:06:00 EDT, Height/Length [...] at 0900 ibuprofen 600 mg oral tablet (8 sources) Nonsteroidal Anti-inflammatory Drug Start: 08-23-2021 take 1 tablet by mouth every eight hours as needed for pain ibuprofen 600 mg Tab 600 mg = 1 tab(s), Oral, q8hr, PRN as needed for pain, with food or milk, # 60 tab(s), Refills(s) 0, Pharmacy: [facility], 185.5, cm, 08/08/21 12:06:00 EDT, Height/Length [...] 08/07/2020 Active take 1 tablet by tori th every twelve hours Ibuprofen 800 MG 1 tablet with food or milk Orally bid Active Ibuprofen 200 MG 1/2 as needed Orally every 6 hrs Not-Taking/PRN lisinopril 10 mg oral tablet (20 sources) Angiotensin Converting Enzyme Inhibitor Start: 01-09-2023 take 1 tablet by mouth once daily lisinopril 10 mg Tab 10 mg = 1 tab(s), Oral, Daily, # 90 tab(s), Refills(s) 3, Pharmacy: [facility]/pharmacy #[id number], 185.5, cm, 01/09/23 16:37:00 EDT, [...] Take 1 tablet by tori once daily. TAKE 1 TABLET BY TORI EVERY DAY Take 5 mg by mouth o nce daily. Magnesium (2 sources) take 1 tablet by mouth once daily [...] Start: 03-23-2017 take 1 capsule by mo [facility] once daily Prilosec 20 mg Cap - DR 20 mg, Oral, Daily, Refills(s) 0 Start Date: 03/23/17 Status: Ordered Start: 2016 take 1 capsule by mo [facility] once daily Omeprazole 40 mg capsule Indications: Gastroesophageal reflux disease, esophagitis presence not specified Take 1 capsule by mouth once daily. 30 capsule 11 2016 Active take 1 tablet by tori once daily PriLOSEC OTC 20 MG 1 tablet 30 minutes before morning meal Orally Once a day Active End: 07-25-2021 Omeprazole Magnesium (PRILOS EC OTC) 20 mg tablet 2 tablet 0 07/25/2021 Discontinued (Discontinued by Patient) Comment on above: Take 1 capsule by mo [facility] once daily. 2 tablet ondansetron (ZOFRAN-ODT) disintegrating tablet 4 mg (1 source) Start: 1 ondansetron (ZOFRAN-ODT) disintegrating tablet 4 mg oxyCODONE hydrochloride 5 mg oral tablet (2 sources) Opioid Agonist Start: 1 End: 1 take 1 tablet by mouth every eight [...] Starting Sat08/01/20 at 2358 polyethylene glycol 3350 86184 mg powder for oral solution (1 source) [...] = 20 mL/lumen Stress 500 B-Complex - (2 sources) Stress 500 B-Com plex - as directed [...] Zinc (1 source) take 1 tablet by tori th once daily Zinc 30 MG 1 tablet Orally Once a day Active zinc gluconate 30 mg oral tablet (1 source) take 1 tablet by tori th every twenty-four hours Zinc 30 MG 1 tablet Orally Once a day Active Completed/Discontinued Medications Medication Drug Class(es) Dates Sig (Normalized) Sig (Original) acetaminophen 325 mg / oxyCODONE hydrochloride 5 mg oral tablet (2 sources) Opioid Agonist Start: 08-23-2021 Percocet 325 mg-5 mg Tab See Instructions, as needed for pain, 40 tab(s), Refill(s) 0, 1-2 tab(s) Oral q4hr, [facility], 185.5, cm, 08/08/21 12:06:00 EDT, Height/Length [...] capsule (2 sources) Nonsteroidal Anti-inflammatory Drug Start: 03-01-20 End: 07-26-19 celecoxib (CELEBREX) 200 mg capsule COMPOUNDED PRESCRIPTION (1 source) Start: 11-09-19 End: 09-14-19 COMPOUNDED PRESCRIPTION Indications: JACOBY (obstructive sleep apnea) Please perform autopap titration study. Please fax results to [phone]. DX: JACOBY G47.33 1 Each 0 11/08/2016 09/13/2020 Discontinued Comment on above: Please perform autop ap titration study. Please fax results to [phone]. DX: JACOBY G47.33 doxepin hydrochloride 10 mg oral capsule (1 source) Tricyclic Antidepressant Start: 11-06-19 End: 04-18-19 take 2 capsules by mouth once daily doxepin capsule 10 mg Take 20 mg by mouth once daily. 0 11/06/2019 04/18/2020 Discontinued (Discontinued by Patient) Comment on above: Take 20 mg by mouth once daily. 2 ml fentaNYL 0.05 mg/ml injection (1 source) Opioid Agonist Start: 08-02-19 End: 08-02-19 fentaNYL (SUBLIMAZE) injection 50 mcg Start: 08-01-2020 [...] Comment on above: Take 2 tablets by [facility] daily with dinner. 1 ml morphine sulfate 4 mg/ml cartridge (1 source) Opioid Agonist Start: End: 1 morphine injection 4 mg 2 ml orphenadrine citrate 30 mg/ml injection (1 source) Muscle Relaxant Start: End: 1 orphenadrine (NORFLEX) injection 60 mg oxaprozin 600 mg oral tablet (4 sources) Nonsteroidal Anti-inflammatory Drug take 1 tablet by mouth every twelve hours Daypro 600 MG 1 tablet Orally Twice a day for 30 day(s) Not-Taking/PRN perflutren lipid microspheres 1.3 mL in NaCl (PF) 0.9% 10 mL injection (DEFINITY) (7 sources) Start: 2 End: 2 perflutren lipid microspheres 1.3 mL in NaCl (PF) 0.9% 10 mL injection (DEFINITY) Start: 08-10-2021 End: 11-09-2022 perflutren lipid microsphere s 1.3 mL in NaCl (PF) 0.9% 10 mL injection (DEFINITY) polyethylene glycol 3350 285061 mg / potassium chloride 2970 mg / sodium bicarbonate 6740 mg / sodium chloride 5860 mg / sodium sulfate 50800 mg powder for oral solution (14 sources) Osmotic Laxative Start: 07-25-2021 End: 09-22-2021 peg 3350-Electrolytes (GOLYTELY) 236-22.74-6.74 -5.86 gram suspension Indications: Screening for colon cancer Refer to printed prep instructions from your provider. 4000 mL 0 07/25/2021 09/22/2021 Discontinued Comment on above: Refer to printed pre p instructions from your provider. predniSONE 20 mg oral tablet (4 sources) Start: 12-16-2022 take 1 tablet by mouth every twelve hours predniSONE 20 MG 1 tablet Orally bid for 5 day(s) Nov, Not-Taking/PRN rosuvastatin calcium 40 mg oral tablet (5 sources) HMG-CoA Reductase Inhibitor Start: 08-20-2022 take 1 tablet by mouth once daily rosuvastatin (CRESTOR) 40 mg tablet Take 1 tablet by mouth once daily. 90 tablet 1 08/20/2022 Active Comment on above: Take 1 tablet by tori th once daily. traZODone hydrochloride 100 mg oral tablet (4 sources) Serotonin Reuptake Inhibitor take 1 tablet by mouth every twenty-four hours traZODone HCl 100 MG 1 tablet at bedtime Orally Once a day for 30 day(s) Not-Taking/PRN Problems Active Problems Problem Classification Problem Date [...] 08-23-2021 Chronic Other and ill-defined heart disease (2 sources) Heart disease; Translations: [Heart disease, unspecified] Chronic [...] Episodic Other diseases of veins and lymphatics (2 sources) Lymphedema; Translations: [Lymphedema, not elsewhere classified] Chronic [...] Other nervous system disorders (1 source) Chronic pain; Translations: [Other chronic pain] Chronic Other nervous system disorders (1 source) Other chronic pain Chronic Other nervous system disorders (1 source) [...] Chronic Other nutritional; endocrine; and metabolic disorders (8 sources) Obesity; Translations: [Obesity, unspecified] Resolved: 02-27-2019 02-28-2019 Chronic Other nutritional; endocrine; and metabolic disorders (1 source) Morbid (severe) obesity due to excess calories; Translations: [Morbid obesity with BMI of 50.0-59.9, adult ([facility])] Onset: 11-26-2019 Chronic Other nutritional; endocrine; and metabolic disorders (4 sources) Body mass index (BMI) 50.0-59.9, adult; Translations: [Morbid obesity with BMI of 50.0-59.9, adult ([facility])] Onset: 11-26-2019 Chronic Other nutritional; endocrine; and [...] Spondylosis; intervertebral disc disorders; other back problems (4 sources) Disorder of lumbar disc; Translations: [Unspecified thoracic, thoracolumbar and lumbosacral intervertebral disc disorder] Onset: 01-17-2023 Chronic Spondylosis; intervertebral disc disorders; other back problems (4 sources) Radiculopathy, lumbar region; Translations: [Spinal stenosis, [...] Episodic Other nutritional; endocrine; and metabolic disorders (1 source) Abnormal weight gain; Translations: [Abnormal weight gain] Onset: 08-30-2021 Episodic Other screening for suspected conditions (not mental disorders or infectious disease) (3 sources) Patient encounter status; Translations: [Encounter for screening for malignant neoplasm of colon] Onset: 07-26-2021 Episodic Residual codes; unclassified (20 sources) Postoperative state; Translations: [Other specified postprocedural states] Onset: 02-08-2021 02-08-2021 Episodic Unclassified (1 source) Low back pain, unspecified M54.50 Results Test Name Value Interpretation Reference Range Facility MR SHOULDER LEFT WO IV CONTR Kyle 04-03-2023 MR SHOULDER LEFT WO IV CONTRAST EXAMINATION: MR SHOULDER LEFT WO IV CONTRAST HISTORY: Left shoulder injury sprain, strain COMPARISON: Shoulder radiograph March 07, 2023. MRI of the shoulder February 20, 2022 TECHNIQUE: Multiplanar multisequence MRI of the shoulder was performed without contrast including utilization of metal artifact reduction techniques. FINDINGS: Postsurgical changes of shoulder arthroplasty with significant associated susceptibility artifact. Bone prosthesis interface appears within normal limits. Mild degenerative changes of the acromioclavicular joint without undersurface osteophyte formation. No definitive subacromial/subdeltoid bursal fluid. Evaluation of the rotator cuff is precluded secondary to artifact. No atrophy or fatty filtration of the rotator cuff musculature. Question small glenohumeral joint effusion. No acute displaced fracture identified. IMPRESSION: No definitive acute osseous or soft tissue abnormality or significant interval change. ELECTRONICALLY SIGNED BY: Brenton Hui, DO Normal Not Available Comment on above: Order Comment: [facility] - C9 Approved Patient had Left Shoulder surgery 1 year ago Previous MRI Lab Reportson 03-14-2023 Lab Reports [id number]#1.00TIFF Normal [facility] Lab Miscellaneous-LCon 03-13 Lab Miscellaneous See Ref Report Invalid Interpretation Code [facility] Comment on above: Performed By: #### 1 [id number] ####[facility] [address] [place] [address] Reference Lab Reporton 03-13 Reference Lab Report [id number]#1.00TIFF Normal [facility] Lab Miscellaneous-LCon 03-12 Lab Miscellaneous See Ref Report Invalid Interpretation Code [facility] Comment on above: Result Comment: Perf ormed at: [address] [id number] PhD João Blankenship See scanned report Performed at: [address] [id number] PhD João Blankenship Performed By: #### 1 [id number] ####[facility] [address] [place] [address] Reference Lab Reporton 03-12 Reference Lab Report [id number]#1.00TIFF Normal [facility] Lab Miscellaneous-LCon 03-08 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 Performed By: #### 2 [id number], [id number], [id number] ####[facility] [address] [place] [address] Basophils/Leukocytes Auto (Bld) [Pure # fraction] 0.1 E9/L Normal 0.0-0.2 [facility] Comment on above: Order Comment: Order Added by Discern Expert. Performed By: #### 2 908665, 1671013, 2103653 ####[address] [address] Eosinophils/100 WBC (Bld) 2.6 % Normal 0.0-8.0 [facility] Comment on above: Order Comment: Order Added by Discern Expert. Performed By: #### 2 643326, 4194191, [id number] ####[address] [address] Eosinophils/Leukocyt es Auto (Bld) [Pure # fraction] 0.2 E9/L Normal 0.0-0.5 [facility] Comment on above: Order Comment: Order Added by Discern Expert. Performed By: #### 2 607636, 7512082, [id number] ####[address] [address] Lymphocytes/100 WBC (Bld) 18.6 % Normal 14.0-50.0 [facility] Comment on above: Order Comment: Order Added by Discern Expert. Performed By: #### 2 022794, 9983284, 5832467 ####[address] [address] Lymphocytes/Leukocyt es Auto (Bld) [Pure # fraction] 1.3 E9/L Normal 1.0-4.0 [facility] Comment on above: Order Comment: Order Added by Wilbert Expert. Performed By: #### 2 132253, 7635865, 3694471 ####[address] [address] Monocytes/100 WBC (Bld) 10.3 % Normal 4.0-14.0 [facility] Comment on above: Order Comment: Order Added by Wilbert Expert. Performed By: #### 2 027691, 3399299, 9481735 ####[address] [address] Monocytes/Leukocytes Auto (Bld) [Pure # fraction] 0.7 E9/L Normal 0.2-1.0 [facility] Comment on above: Order Comment: Order Added by Wilbert Expert. Performed By: #### 2 889672, 2384336, 1222351 ####[address] [address] Neutrophils/100 WBC (Bld) 67.8 % Normal 36.0-75.0 [facility] Comment on above: Order Comment: Order Added by Wilbert Expert. Performed By: #### 2 207423, 5763193, 0719444 ####[address] [address] Neutrophils/Leukocyt es Auto (Bld) [Pure # fraction] 4.8 E9/L Normal 2.0-7.5 [facility] Comment on above: Order Comment: Order Added by Wilbert Expert. Performed By: #### 2 320927, 6127671, 5506178 ####[address] [address] CBC w/ Auto Diffon 3 Erythrocyte distribution width (RBC) [Ratio] 13.1 % Normal 10.9-14.2 [facility] Comment on above: Performed By: #### 2 687499, 6798441, 9771386 ####[address] [address] Hematocrit (Bld) [Volume fraction] 39.2 % Normal 37.7-49.0 [facility] Comment on above: Performed By: #### 2 563550, 1679181, 5357047 ####[address] [address] Hemoglobin (Bld) [Mass/Vol] 13.4 g/dL Low 13.5-17.5 [facility] Comment on above: Performed By: #### 2 380203, 4489251, 7216832 ####[address] [address] MCH (RBC) [Entitic mass] 29.0 pg Normal 27.0-34.0 [facility] Comment on above: Performed By: #### 2 483290, 4716626, 2311053 ####[address] [address] MCHC (RBC) [Mass/Vol] 34.3 g/dL Normal 31.4-36.0 [facility] Comment on above: Performed By: #### 2 781915, 9490980, 0801631 ####[address] [address] MCV (RBC) [Entitic vol] 84.6 fL Normal 80.0-100.0 [facility] Comment on above: Performed By: #### 2 300257, 3562294, 5660013 ####[address] [address] Platelet mean volume (Bld) [Entitic vol] 7.7 fL Normal 6.4-10.8 [facility] Comment on above: Performed By: #### 2 753240, 1430386, 1256751 ####[address] [address] Platelets (Bld) [#/Vol] 261.0 E9/L Normal 150.0-500. 0 [facility] Comment on above: Performed By: #### 2 015930, 5170300, 9083060 ####[address] [address] RBC (Bld) [#/Vol] 4.6 E12/L Normal 4.3-5.9 [facility] Comment on above: Performed By: #### 2 137659, 6721654, 1488409 ####[facility] [address] [place] [address] WBC corrected for nucl RBC Auto (Bld) [#/Vol] 7.1 E9/L Normal 4.0-11.0 [facility] Comment on above: Performed By: #### 2 731804, 4605093, 7763972 ####[facility] [address] [place] [address] CHEMISTRYOrdered By: SYSTEM SYSTEM on 03-07-2023 CRP [Mass/Vol] 1.8 mg/dL Normal <=1.9mg/dL [facility] CRPon 03-07-2023 CRP [Mass/Vol] 1.8 mg/dL Normal <=1.9 [facility] Comment on above: Performed By: #### 2 956415, 1879232, 0693824 ####[facility] [address] [place] [address] Consent for Treatmenton Consent for Treatment [id number]#1.00TIFF Normal [facility] Erythrocyte Sedimentation Ra aniya 03-07-2023 ESR (Bld) [Velocity] 9 mm/h Normal 0-19 [facility] Comment on above: Result Comment: PERF ORMED BY: [place] [address] PATHOLOGIST CLUTCH MECHANIC BARI GREENE M.D. Performed By: #### E #### [address] Erythrocyte sedimentation ra te by Photometric methodOrdered By: Huan Cowan on 03-07-2023 ESR Photometric method (Bld) [Velocity] 9 mm/hr 0-19 [facility] HEMATOLOGYOrdered By: SYSTEM SYSTEM on 03-07-2023 Basophils/100 WBC (Bld) 0.7 % Normal 0.0 - 2.0 % [facility] HemeAutoSS Basophils/Leukocytes Auto (Bld) [Pure # fraction] 0.1 E9/L Normal 0.0 - 0.2 E9/L [facility] HemeAutoSS Eosinophils/100 WBC (Bld) 2.6 % Normal 0.0 - 8.0 % [facility] HemeAutoSS Eosinophils/Leukocyt es Auto (Bld) [Pure # fraction] 0.2 E9/L Normal 0.0 - 0.5 E9/L [facility] HemeAutoSS Lymphocytes/100 WBC (Bld) 18.6 % Normal 14.0 - 50.0 % [facility] HemeAutoSS Lymphocytes/Leukocyt es Auto (Bld) [Pure # fraction] 1.3 E9/L Normal 1.0 - 4.0 E9/L [facility] HemeAutoSS Monocytes/100 WBC (Bld) 10.3 % Normal 4.0 - 14.0 % [facility] HemeAutoSS Monocytes/Leukocytes Auto (Bld) [Pure # fraction] 0.7 E9/L Normal 0.2 - 1.0 E9/L [facility] HemeAutoSS Neutrophils/100 WBC (Bld) 67.8 % Normal 36.0 - 75.0 % [facility] HemeAutoSS Neutrophils/Leukocyt es Auto (Bld) [Pure # fraction] 4.8 E9/L Normal 2.0 - 7.5 E9/L [facility] HemeAutoSS HEMATOLOGYOrdered By: Juanita Chen on 03-07-2023 Erythrocyte distribution width (RBC) [Ratio] 13.1 % Normal 10.9 - 14.2 % [facility] Hematocrit (Bld) [Volume fraction] 39.2 % Normal 37.7 - 49.0 % [facility] Hemoglobin (Bld) [Mass/Vol] 13.4 g/dL Low 13.5 - 17.5 gm/dL [facility] MCH (RBC) [Entitic mass] 29.0 pg Normal 27.0 - 34.0 pg [facility] MCHC (RBC) [Mass/Vol] 34.3 g/dL Normal 31.4 - 36.0 gm/dL [facility] MCV (RBC) [Entitic vol] 84.6 fL Normal 80.0 - 100.0 fL [facility] Platelet mean volume (Bld) [Entitic vol] 7.7 fL Normal 6.4 - 10.8 fL [facility] Platelets (Bld) [#/Vol] 261.0 E9/L Normal 150.0 - 500.0 E9/L [facility] RBC (Bld) [#/Vol] 4.6 E12/L Normal 4.3 - 5.9 E12/L [facility] WBC corrected for nucl RBC Auto (Bld) [#/Vol] 7.1 E9/L Normal 4.0 - 11.0 E9/L [facility] Lab Miscellaneous-LCon 03-07 Test Code TO [facility] Invalid Interpretation Code [facility] Comment on above: Performed By: #### 1 [id number] ####[place] [address] Test Code 815632 Invalid Interpretation Code [facility] Comment on above: Performed By: #### 1 [id number] ####[place] [id number] Test Name SED RATE/FIREAL Invalid Interpretation Code [facility] Comment on above: Performed By: #### 1 [id number] ####[place] [id number] Test Name [place] 6 Invalid Interpretation Code [facility] Comment on above: Performed By: #### 1 [id number] ####[address] [address] Physician Orderon 03-07-2023 Physician Order [id number]#1.00TIFF Normal [facility] Reference Laboratory Testing Ordered By: Yasmeen Ca on 03-07-2023 Sodium [Moles/Vol] 250283 mmol/L Invalid Interpretation Code [facility] Test Code TO [facility] Invalid Interpretation Code [facility] Test Name SED RATE/FIREAL Invalid Interpretation Code [facility] Test Name [place] 6 Invalid Interpretation Code [facility] Operative Reporton Operative Report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 Transcribe Date/Time: May 26 2022 2:43P Dictated by : BOB RODRIGUEZ MD This examination was interpreted and the report reviewed and electronically signed by: BOB RODRIGUEZ MD on May 27 2022 5:50AM EST [id number] [facility] ) -- NEHAL BAIG ([id number]) 1970 M Date Time Provider Department 05/21/22 5:20 PM SALOME AGUILLON [facility] During your visit today, we recorded the following information about you: Pulse Blood pressure Weight Height 89/minute 133/67 180.5 kg 1.854 m Salome Aguillon APRN.[employer] 05/21/2022 6:45 PM Addendum This note was [...] 2020. This is a workers comp issue-through [facility]/Dr. Cowan. 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 Shoulder replacement surgery left 08/23/24. 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 ENDO/WT: -needs f/up endo wt managmeent Dr. 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 Man/Agustina-endo wt management team [phone] Will review at upcoming appointment. Protein noted in urine. Vitamin D is low at 30.7-recommend lsho-rct-arumpwb vitamin D3 1000 units daily. Cholesterol is elevated, worsening when compared to prior-we will discuss increasing cholesterol medication. Kidney, liver, electrolytes look fine. Thyroid lab looks fine. PSA/prostate lab looks fine. A1c is stable at 5.4. Blood count looks fine. Written by Salome Aguillon APRN.[employer] on 05/21/2022 3:44 PM EST Last 2 [...] Negative Ketones, Urine Negative Trace (A) Specific [place], Ur 1.005 - 1.030 >=1.030 (H) Hemoglobin/Blood,Ur [...] hyperlipidemia Obst (more content not included)... Normal [facility] 25(OH)D3 [facility] 2022 25-hydroxyvitamin D3 [Mass/Vol] 30.7 ng/mL Low 31.0-80.0 [facility] Comment on above: Order Comment: Speci men Type: BLOOD SPECIMEN [facility] Address: [address] [place] [address] [place] [address] Result Comment: Clas sification of 25 [place] Vitamin D status: Deficiency/Insufficiency: < or = 30 ng/ml. Sufficiency/Optimal Levels: 31-80 ng/mL Toxicity: > 100 ng/mL. Test performed by chemiluminescent immunoassay. Performed By: #### 1 989-3 #### [facility] CLIA [id number] [address] [place] [address] OF [facility] CBC panel Auto (Bld)on 05-19 Erythrocyte distribution width (RBC) [Ratio] 12.9 % Normal 11.5-15.0 [facility] Comment on above: Order Comment: Speci men Type: URINE SPECIMEN [facility] Address: [address] [place] [address] Performed By: #### L [id number] #### [facility] CLIA [id number] [address] [place] [address] STATES [facility] Hematocrit (Bld) [Volume fraction] 42.7 % Normal 39.0-51.0 [facility] Comment on above: Order Comment: Speci men Type: URINE SPECIMEN [facility] Facility[facility] Address: [address] [place] [address] Performed By: #### L [id number] #### [facility] CLIA [id number] [address] [place] [address] Hemoglobin (Bld) [Mass/Vol] 14.5 g/dL Normal 13.0-17.0 [facility] Comment on above: Order Comment: Speci men Type: URINE SPECIMEN [facility] Address: [address] [place] [address] Performed By: #### L [id number] #### [facility] CLIA [id number] [address] [place] [address] MCH (RBC) [Entitic mass] 29.2 pg Normal 26.0-34.0 [facility] Comment on above: Order Comment: Speci men Type: URINE SPECIMEN [facility] Address: [address] [place], [place] [address] Performed By: #### L [id number] #### [facility] CLIA [id number] [address] [place] [address] STATES [facility] MCHC (RBC) [Mass/Vol] 34.0 g/dL Normal 30.5-36.0 [facility] Comment on above: Order Comment: Speci men Type: URINE SPECIMEN [facility] Address: [address] [place], [place] [address] Performed By: #### L [id number] #### [facility] CLIA [id number] [address] [place] [address] [place] MCV (RBC) [Entitic vol] 85.9 fL Normal 80.0-100.0 [facility] Comment on above: Order Comment: Speci men Type: URINE SPECIMEN [facility] Address: [address] [place], [place] [address] Performed By: #### L [id number] #### [facility] CLIA [id number] [address] [place] [address] STATES OF [facility] Nucleated RBC (Bld) [#/Vol] 10*3/uL Normal <0.01 [facility] Comment on above: Order Comment: Speci men Type: URINE SPECIMEN [facility] Address: [address] [place], [place] [address] Performed By: #### L [id number] #### [facility] CLIA [id number] [address] [place] [address] [place] Platelet mean volume (Bld) [Entitic vol] 10.2 fL Normal 9.0-12.7 [facility] Comment on above: Order Comment: Speci men Type: URINE SPECIMEN [facility] Address: [address] [place], [place] [address] Performed By: #### L [id number] #### [facility] CLIA [id number] [address] [place] [address] [place] Platelets (Bld) [#/Vol] 189 10*3/uL Normal 150-400 [facility] Comment on above: Order Comment: Speci men Type: URINE SPECIMEN [facility] Address: [address] [place] [address] Performed By: #### L [id number] #### [facility] CLIA [id number] [address] [place] [address] [place] RBC (Bld) [#/Vol] 4.97 10*6/uL Normal 4.20-6.00 [facility] Comment on above: Order Comment: Speci men Type: URINE SPECIMEN [facility] Address: [address] [address] Performed By: #### L [id number] #### [facility] CLIA [id number] [address] [place] [address] [place] WBC (Bld) [#/Vol] 5.26 10*3/uL Normal 3.70-11.00 [facility] Comment on above: Order Comment: Speci men Type: URINE SPECIMEN [facility] Address: [facility] [place] [address] Performed By: #### L [id number] #### [facility] CLIA [id number] [address] [place] [address] [place] Comprehensive metabolic 2000 panelon 05-19-2022 Albumin [Mass/Vol] 4.4 g/dL Normal 3.9-4.9 [facility] Comment on above: Order Comment: Speci men Type: BLOOD SPECIMENOrdering Facility: [facility] Address: [address] [address] Performed By: #### 2 4323-8, 42793-0 ####[facility] LABCLIA [id number] [place] [address] [place] ALP [Catalytic activity/Vol] 83 U/L Normal 38-113 [facility] Comment on above: Order Comment: Speci men Type: BLOOD SPECIMENOrdering Facility: [facility] Address: [address] [address] Performed By: #### 2 4323-8, 52111-2 ####[facility] LABCLIA [id number] [place] [address] [place] ALT [Catalytic activity/Vol] 45 U/L Normal 10-54 [facility] Comment on above: Order Comment: Speci men Type: BLOOD SPECIMENOrdering Facility: [facility] Address: [address] [address] Performed By: #### 2 4323-8, 50358-0 ####[facility] LABCLIA [id number] [place] [id number] [place] Anion gap [Moles/Vol] 10 mmol/L Normal 9-18 [facility] Comment on above: Order Comment: Speci men Type: BLOOD SPECIMENOrdering Facility: [facility] Address: [address] [address] Performed By: #### 2 4323-8, 18615-6 ####[facility] LABCLIA [id number] [place] [address] [place] AST [Catalytic activity/Vol] 31 U/L Normal 14-40 [facility] Comment on above: Order Comment: Speci men Type: BLOOD SPECIMENOrdering Facility: [facility] Address: [address] [address] Performed By: #### 2 4323-8, 27277-6 ####[facility] LABCLIA [id number] [place] [address] [place] Bilirubin [Mass/Vol] 0.6 mg/dL Normal 0.2-1.3 [facility] Comment on above: Order Comment: Speci men Type: BLOOD SPECIMENOrdering Facility: [facility] Address: [address] [address] Performed By: #### 2 4323-8, 99990-0 ####[facility] LABCLIA [id number] [place] [address] [place] Calcium [Mass/Vol] 9.5 mg/dL Normal 8.5-10.2 [facility] Comment on above: Order Comment: Speci men Type: BLOOD SPECIMENOrdering Facility: [facility] Address: [address] [place] [address] Performed By: #### 2 4323-8, 84369-1 ####[facility] LABCLIA [id number] [place] [address] [place] Chloride [Moles/Vol] 103 mmol/L Normal 97-105 [facility] Comment on above: Order Comment: Speci men Type: BLOOD SPECIMENOrdering Facility: [facility] Address: [address] [place] [address] Performed By: #### 2 4323-8, 47116-8 ####[facility] LABIA [id number] [place] [id number] [place] CO2 [Moles/Vol] 26 mmol/L Normal 22-30 [facility] Comment on above: Order Comment: Speci men Type: BLOOD SPECIMENOrdering Facility: [facility] Address: [address] [place] [address] Performed By: #### 2 4323-8, 72524-3 ####[facility] LABCLIA [id number] [place] [id number] [place] Creatinine [Mass/Vol] 0.98 mg/dL Normal 0.73-1.22 [facility] Comment on above: Order Comment: Speci men Type: BLOOD SPECIMENOrdering Facility: [facility] Address: [address] [place] [address] Performed By: #### 2 4323-8, 60656-1 ####[facility] LABCLIA [id number] [place] [address] [place] ESTIMATED GLOMERULAR FILTRATION RATE 95 mL/min/1.73m??? Normal >=60 [facility] Comment on above: Order Comment: Tessa flores Type: BLOOD SPECIMENOrdering Facility: [facility] Address: [address] [id number] Result Comment: Halle mated Glomerular Filtration Rate [...] actual GFR. Performed By: #### 2 4323-8, 31975-3 ####[facility] LABCLIA [id number] [place] [id number] [place] Glucose [Mass/Vol] 203 mg/dL High 74-99 [facility] Comment on above: Order Comment: Tessa flores Type: BLOOD SPECIMENOrdering Facility: [facility] Address: [address] [address] Result Comment: The [place] Diabetes Association (ADA) provides guidance for cutoff [...] Standards of Medical Care in Diabetes 2016, [place] Diabetes Association. Diabetes Care. 2016.39(Suppl 1). Performed By: #### 2 4323-8, 38063-0 ####[facility] LABCLIA [id number] [place] [id number] [place] Potassium [Moles/Vol] 4.6 mmol/L Normal 3.7-5.1 [facility] Comment on above: Order Comment: Tessa flores Type: BLOOD SPECIMENOrdering Facility: [facility] Address: [address] [address] Performed By: #### 2 4323-8, 39285-3 ####[facility] LABCLIA [id number] [place] [address] [place] Protein [Mass/Vol] 7.4 g/dL Normal 6.3-8.0 [facility] Comment on above: Order Comment: Speci men Type: BLOOD SPECIMENOrdering Facility: [facility] Address: [address] [address] Performed By: #### 2 4323-8, 27365-5 ####[facility] LABCLIA [id number] [place] [id number] [place] Sodium [Moles/Vol] 139 mmol/L Normal 136-144 [facility] Comment on above: Order Comment: Speci men Type: BLOOD SPECIMENOrdering Facility: [facility] Address: [address] [address] Performed By: #### 2 432-8, 92519-1 ####[facility]ITAL[facility]IA [id number] [place] [id number] [place] Urea nitrogen [Mass/Vol] 17 mg/dL Normal 9-24 [facility] Comment on above: Order Comment: Speci men Type: BLOOD SPECIMENOrdering Facility: [facility] Address: [address] [address] Performed By: #### 2 4323-8, 28507-6 ####[facility]ERR[facility] LABIA [id number] [place] [id number] [place] HbA1c (Bld)on 05-19-2022 Average glucose Estimated from glycated hemoglobin (Bld) [Mass/Vol] 108 mg/dL Normal [facility] Comment on above: Order Comment: Speci men Type: URINE SPECIMEN [facility] Address: [address] [address] Result Comment: eAG: (Estimated average glucose) is a calculated value from HgbA1c and is insurance sales representative of the average blood glucose level in the last 2-3 month period. Performed By: #### L [id number] #### [facility] CLIA [id number] [address] [place] [address] STATES [facility] HbA1c (Bld) [Mass fraction] 5.4 % Normal 4.3-5.6 [facility] Comment on above: Order Comment: Speci men Type: URINE SPECIMEN [facility] Address: [address] [address] Result Comment: Amer ican Diabetes Association guidelines indicate that patients with HgbA1c in the range 5.7-6.4% are at increased risk for development of diabetes, and intervention by lifestyle modification may be beneficial. HgbA1c greater or equal to 6.5% is considered diagnostic of diabetes. Performed By: #### L [id number] #### [facility] CLIA [id number] [address] [place] [address] [place] Lipid 1996 panelon 3 Cholesterol [Mass/Vol] 219 mg/dL High <200 [facility] Comment on above: Order Comment: Speci men Type: BLOOD SPECIMENOrdering Facility: [facility] Address: [address] [address] Result Comment: <200 mg/dL, Desirable 200-239 mg/dL, Borderline high >239 mg/dL, High Performed By: #### 2 4323-8, 30297-3 ####[facility] LABCLIA [id number] [address] OF [facility] Cholesterol in HDL [Mass/Vol] 38 mg/dL Low >39 [facility] Comment on above: Order Comment: Speci men Type: BLOOD SPECIMENOrdering Facility: [facility] Address: [address] [address] Result Comment: 40-5 9 mg/dL, Acceptable >59 mg/dL, High: Negative risk factor for coronary heart disease <40 mg/dL, Low: Positive risk factor for coronary heart disease Performed By: #### 2 4323-8, 13029-4 ####[facility] LABCLIA [id number] [place] [address] [place] Cholesterol in LDL [Mass/Vol] 149 mg/dL High <100 [facility] Comment on above: Order Comment: Speci men Type: BLOOD SPECIMENOrdering Facility: [facility] Address: [address] [place] [address] Result Comment: <100 mg/dL, Optimal 100-129 mg/dL, Near optimal/above optimal 130-159 mg/dL, Borderline high 160-189 mg/dL, High >189 mg/dL, Very high Secondary prevention optimal LDL Cholesterol levels are recommended to be < 70 mg/dL Performed By: #### 2 4323-8, 00204-1 ####[facility] LABCLIA [id number] [address] Cholesterol in LDL/Cholesterol in HDL [Mass ratio] 3.92 {ratio} High <2.54 [facility] Comment on above: Order Comment: Speci men Type: BLOOD SPECIMENOrdering Facility: [facility] Address: [address] [place] [address] Result Comment: Refe rence: 1. National Cholesterol Education Program ATP III Guideline At-A-Glance Quick Desk Reference: National Heart, Lung, and Blood [place]. National Institutes of Health. 2001: NIH Publication No. 01-3305. 2. An International Atherosclerosis Society position paper: global recommendations for the management of dyslipidemia: executive summary, Atherosclerosis. 2014: 232(2):410-413. Performed By: #### 2 4323-8, 51062-2 ####[facility] LABCLIA [id number] [place] [id number] [place] Cholesterol in VLDL [Mass/Vol] 32 mg/dL High <30 [facility] Comment on above: Order Comment: Selmai men Type: BLOOD SPECIMENOrdering Facility: [facility] Address: [address] [place] [address] Performed By: #### 2 4323-8, 99547-1 ####[facility] LABCLIA [id number] [place] [id number] [place] Cholesterol non HDL [Mass/Vol] 181 mg/dL High <130 [facility] Comment on above: Order Comment: Speci men Type: BLOOD SPECIMENOrdering Facility: [facility] Address: [address] [place] [address] Result Comment: <130 mg/dL, Optimal 130-159 mg/dL, Near optimal/above optimal 160-189 mg/dL, Borderline high 190-219 mg/dL, High >219 mg/dL, Very high Secondary prevention optimal non HDL Cholesterol levels are recommended to be <100 mg/dL Performed By: #### 2 4323-8, 49024-3 ####[facility] LABCLIA [id number] [place] [address] [place] [facility] Cholesterol.total/Ch olesterol in HDL [Mass ratio] 5.76 {ratio} High <5.10 [facility] Comment on above: Order Comment: Speci men Type: BLOOD SPECIMENOrdering Facility: [facility] Address: [address] [place] [address] Performed By: #### 2 4323-8, 63095-1 ####[facility] LABCLIA [id number] [address] STATES OF [facility] FASTING TIME 10 hrs Normal [facility] Comment on above: Order Comment: Speci men Type: BLOOD SPECIMENOrdering Facility: [facility] Address: [address] [place] [address] Performed By: #### 2 4323-8, 55491-2 ####[facility] LABCLIA [id number] [address] OF [facility] Triglyceride [Mass/Vol] 161 mg/dL High <150 [facility] Comment on above: Order Comment: Speci men Type: BLOOD SPECIMENOrdering Facility: [facility] Address: [address] [address] Result Comment: <150 mg/dL, Normal 150-199 mg/dL, Borderline high 200-499 mg/dL, High >499 mg/dL, Very high Performed By: #### 2 4323-8, 48509-9 ####[facility] LABCLIA [id number] [place] [address] [place] PSA/PROSTSPECAG SCRNon 05-19 Prostate specific Ag [Mass/Vol] 0.56 ng/mL Normal <2.60 [facility] Comment on above: Order Comment: Speci men Type: BLOOD SPECIMENOrdering Facility: [facility] Address: [address] [address] Result Comment: Tota l PSA test methodology used is the Electrochemiluminescence Immunoassay by [employer]. Total PSA values by differing methodologies cannot be interchanged. Performed By: #### P SAS1 ####[facility] LAB[facility]IA [id number] [place] [address] [place] TSH SerPl-aCncon 05-19-2022 TSH Qn 1.020 m[IU]/L Normal 0.270-4.20 0 [facility] Comment on above: Order Comment: Speci men Type: BLOOD SPECIMENOrdering Facility: [facility] Address: [address] [place] [address] Performed By: #### 3 016-3 ####[facility] LABCLIA [id number] [place] [address] [place] URINALYSIS, REFLEX MICROSCOP ICon 05-19-2022 Bilirubin Ql (U) Negative Normal Negative [facility] Comment on above: Order Comment: Speci men Type: URINE SPECIMEN [facility]ing Facility[facility] Address: [address] [place] [address] Performed By: #### L [id number] #### [facility]ENT[facility] CLIA [id number] [address] [place] [address] [place] Clarity (Unsp spec) Clear Normal Clear [facility] Comment on above: Order Comment: Speci men Type: URINE SPECIMEN Ordering Facility: [facility] Address: [address] [address] Performed By: #### L [id number] #### [facility]ITAL[facility] CLIA [id number] [address] [place] [address] [place] Color (U) Yellow Normal Yellow [facility] Comment on above: Order Comment: Speci men Type: URINE SPECIMEN [facility]ing Facility[facility] Address: [address] [place] [address] Performed By: #### L [id number] #### [facility] CLIA [id number] [address] [place] [address] [place] Epithelial cells LM.HPF (Urine sed) [#/Area] Few Normal [facility] Comment on above: Order Comment: Speci men Type: URINE SPECIMEN [facility] Address: [address] [place] [address] Performed By: #### L [id number] #### [facility]ITAL[facility] CLIA [id number] [address] [place] [address] [place] Glucose Test strip (U) [Mass/Vol] Negative Normal Negative [facility] Comment on above: Order Comment: Speci men Type: URINE SPECIMEN [facility] Address: [address] [place] [address] Performed By: #### L [id number] #### [facility] CLIA [id number] [address] [place] [address] [place] Hemoglobin Ql (U) Negative Normal Negative [facility] Comment on above: Order Comment: Speci men Type: URINE SPECIMEN [facility] Address: [address] [place] [address] Performed By: #### L [id number] #### [facility] CLIA [id number] [address] [place] [address] [place] Ketones Ql (U) Trace Abnormal Negative [facility] Comment on above: Order Comment: Speci men Type: URINE SPECIMEN [facility] Address: [address] [place] [address] Performed By: #### L [id number] #### [facility] CLIA [id number] [address] [place] [address] STATES [facility] Leukocyte esterase Test strip Ql (U) Negative Normal Negative [facility] Comment on above: Order Comment: Speci men Type: URINE SPECIMEN [facility] Address: [address] [place] [address] Performed By: #### L [id number] #### [facility]ITALRa[facility] CLIA [id number] [address] [place] [address] [place] Nitrite Ql (U) Negative Normal Negative [facility] Comment on above: Order Comment: Speci men Type: URINE SPECIMEN [facility] Address: [address] [place] [address] Performed By: #### L [id number] #### [facility]ITAL[facility] CLIA [id number] [address] [place] [address] [place] pH (U) 5.5 [pH] Normal 5.0-8.0 [facility] Comment on above: Order Comment: Speci men Type: URINE SPECIMEN [facility] Address: [address] [place] [address] Performed By: #### L [id number] #### [facility]ITALRa[facility] CLIA [id number] [address] [place] [address] STATES [facility] Protein (U) [Mass/Vol] 1+ Abnormal Negative [facility] Comment on above: Order Comment: Speci men Type: URINE SPECIMEN [facility] Address: [address] [place] [address] Performed By: #### L [id number] #### [facility]ITALRa[facility] CLIA [id number] [address] [place] [address] [place] RBC LM.HPF (Urine sed) [#/Area] 0-3 /HPF Normal 0-3 /HPF [facility] Comment on above: Order Comment: Speci men Type: URINE SPECIMEN [facility] Address: [address] [place] [address] Performed By: #### L [id number] #### [facility] CLIA [id number] [address] [place] [address] Specific gravity (U) [Rel density] >=1.030 High 1.005-1.03 0 [facility] Comment on above: Order Comment: Speci men Type: URINE SPECIMEN [facility] Address: [address] [place] [address] Performed By: #### L [id number] #### [facility]ITAL[facility] CLIA [id number] [address] [place] [address] [place] Urobilinogen Ql (U) 0.2 EU/dL Normal 0.2-1.0 EU/dL [facility] Comment on above: Order Comment: Speci men Type: URINE SPECIMEN [facility] Address: [address] [place] [address] Performed By: #### L [id number] #### [facility]ITALRa[facility] CLIA [id number] [address] [place] [address] [place] WBC LM.HPF (Urine sed) [#/Area] 0-5 /HPF Normal 0-5 /HPF [facility] Comment on above: Order Comment: Speci men Type: URINE SPECIMEN [facility] Address: [address] [place] [address] Performed By: #### L [id number] #### [facility] CLIA [id number] [address] [place] [address] [place] Provider Orderson 05-18-2022 Provider Orders [id number]#1.00OTGTIFF [facility] Outside Recordson 05-15-2022 Outside Records [id number]#1.00OTGTIFF [facility] MRI CSPINE WO CONon 04-23-19 MRI [...] by: KINGSLEY HERRERA Date: 2022-04-23 06:50 Normal [facility] XR FOREIGN BODY EYEon 2022 XR FOREIGN BODY EYE EXAMINATION: XR FORE IGN BODY EYE HISTORY: Foreign body in eye COMPARISON: No relevant comparison available. FINDINGS: ORBITS: Negative for a metallic foreign body. OTHER: Negative. IMPRESSION: 1. No metallic foreign body within the orbits. Electronically authenticated by: JAYY GIVENS Date: 2022-04-20 13:52 Normal [facility] Outside Recordson 04-18-2022 Outside Records [id number]#1.00OTGTIFF Normal [facility] Coding Summaryon 04-16-2022 Coding Summary HTMLBase 64 ZigdqnzcVJz5iPp+PGhlYWQ+PE 1GRYTxS35kuXCgqS6GX7jBLY8D SMCMPGMOMF9QHE0qzLK0ODkoE6 VybiAv BzbuxCOjNP59YGa9PIR9iVbnBJ wmyD7jnBQhY4w2TrArDM08vH18 YVraUERcPzD3WqIemeruvBUx H4abOqOslCHnLdv+PHRhYmxlIH jwNLAhNGadGMRzKeCneGoeDQ6w Wq0oYZHoBAJovZgbrBJrDdWy x7hkSDTrTAunKE0wnNjiP5YhpY E5KKUfh5j8Fq59aXB+PHRkIHN0 vPodEEyxu703QqVum1haJYQ7 gCOdCXlgKJI0U82mu9M7ENVdQM UgQIG8bQE2yW7jcXkbqukqP2Sa kFBvStZ7ZJS5eZNoyC1sxJke cxqjiU0jSrx+T00BAJ9MQIGOCE 2SKgw8R3JgTaabbXP+ZG89VQOd DH95uBAigOTeu2iywZi3SbTz TMBhCAJ6dUejTHcae9PwLZQqS7 9keKLlo2W2IBOrpFfirYVsJcEu qDX9yM5bXRamreqes7ypgimz Ujcie0qfjn79oL00Q26xBBemGB EhVMK6UXOpWYJrjDdfkc6bhR4d Ii8+GFlyg4uyc8pwgZg2ZlUd NLNunbJdaEraHUX8i7FpSd90W4 FevWlww5PqRia7yf83pGXls3C9 dCJ4LDwkVMKleY7iYZwnUuT8 HNLyYeHceA39lAUvGUziLc6lxX apvGcxHR9zCOKlrttrLMYyoT7t QPMfuSQroTpjUL4eEDHmzutj k888ZaQjKHS5VSOmiCDaB4OwrD 4aAbVaHYVuMDAnG5GrsYDtFUao J931UAtcHtW7JHNjtpMsW4Gn KQSneNeuRfB2v1M6Hw7El2Fmlm wqSVB0OFydMBUuHiR9AtWhJjL4 G4JaZiz0ZXUoxLdyQX0sO3Gk SJPwhpivfvvnmYZ3UPTaUYIwwV 80sMLgMOdnIu9zl4B5x996FZUk QPNeeG47Sw1lgXucCJIqxCNQ jQ6zfqoud5wdvikoVsHjKFKnBW x3ZYz5LYSlmQpeHhLhOWD7FwF0 BWS4mOVdnU4irSqitczooK8g Oyc+Z40jqK3lEDD3ERR9ovsnLG RzwmHnPV37ON70T3LmBleesIDd bGU+GJIlxiVhfMdlNF1pXaNm k1qqf6CdMMftV3LoGGEtTApdIp t9KVRgPDI4qIC7iC0fIOXpKSgd s6A0jXF3V9IppzGkvs4hl3oy BQVjXVrdE70sbMZnh8M0XTEwdI G7CPSfzFmzQhWztG26Mkp+PGNv rNtqg5OeGqchh4cyw6gnvXh9 ZjDeQWMlgvJzzIxyTMC1k7KrVj 03N52wCRlfEPYrVWTjKFKwHJUn fFnlif1poS7mXe3+PGNvbCB3 hGC6wG0dYWRqTkQ8SCfcT559Tm DczGNpOaram8mkh0yqaBu0AqPw HQJbybJzrHyjQNF1s8YwNg33 R67dRLqvOWVoHFRdYMPzUSBrcI jbjj3aoW7qUf0+NM6km4nhhy69 tU21mAN+OGAwWHM4uGwmXBzk OOLzgX5rIKfuMbM9GVMxMdGeuS 90dHLrBNdkYf0coGkhbZlxKA4b LWTykhlzq804XbXyl1zmICWi pVVnKAjhVDQ3B47ri0D0KFYeWQ OiWGA5dPE5uD1wmQungwulyKAi sMriyrKoaMsnHJmtKJmhA523 IHRvcDsnPlBhdGllbnQgTmFtZT v8C6ZeZjc0VZXatZybXI0cdNFx SAviDh9tuBwtnOrlLQ9wKLIl jpsye203IwZsf8jcULRqwDIiNP ebTUH7Y52uc4I4DYQeOVRrNLL9 hQS8mC7omSltprjqvDYahJre hbMevXdwZWtyUJpzV139ROIhmP bcDbWawuGgDVBgbYA1UY64AB89 oWWlx2K5wQY0F9KgBCUgfcce gdvxkET8BNQiQDAekC67Vy1ndR ehXl7pVQPcXGO6LCKgqOEfL1Sz zI4zRsOaJLEiFZTtS4ItfQCi FTqyY791LTyuZjS1LCSbtsDeU7 JvNPNdpGreRxX7g0K5Lk5AX9N0 DK13KQ92mJFro5C5zHD0H9Ii HMKxdozzikiddGG3YBTdBSOvuR 22Zm4rgAlyQu4dTVRhQGZ5CFMn xWGgD7LkuI0vHjQgMNEvLIVj L1AreMQeFMbkT471FJvnFbL2FH XafdBuP8EwSDLsiHmuKpF3b8I1 Ub1PMRd0RX80BF46dIEay1P2 sTF1O2MwOPNmlfirjsnrcEU3XN DkTVShfW35Vz2klQjwYk3yNNMb HKN4NLMnqBYoW4IrkD2lKoJb ENKvXFLnW3ElqFJfEZhuX055PG iyDuW7JLKdioCxS0ZtHAZvnQlf KnP9c4B2Gt0SGTVsTW64JHI4 kVM7MY69MN23M1NrActpqEYkaQ U+PHRhYmxlIHdpZHRoPScxMDAl BbUnyHdnVG7yPt9cJPZtPFWb gNlbfEYhTpBef6fcWSYuKMbySR 1nmMscY7YwbQJ5QPQzc4k2Vd21 I74wE5UndCN+GFIwtKO4eBL6 nU5cSgRlMeF2ENslJ627EyVjdG LdTtpxo7otq1yhjEf8LtA8KSVf gcCokKytDNQ8f8OcBj53T49v IHdpZHRoPSIxNSUiIHZhbGlnbj 3mrM5rEo9+KGRxzMN7eVL0yR4h UtEnXpH8GSvdR550McCfkSCd Dmlnr2vfx0ukwEu7KpRcXEEgad VhcAovTJK5a1YxTb25O0FjaAez q4QiEra2hb33fYAld1X4hBV2 A7LhONPmdhxseHKujGvzCM0uLJ PtspqjTPWziB8dAOXkF6m7MxHd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 [facility], [address] [place] [address] Performed By: #### S #### [facility] CLIA [id number] [address] [place] [address] CBC panel Auto (Bld)on 07-29 Erythrocyte distribution width (RBC) [Ratio] 12.5 % Normal 11.5-15.0 [facility] Comment on above: Order Comment: Speci men Type: URINE SPECIMEN Ordering Facility[facility] Address: [address] [place] [address] Performed By: #### L [id number] #### [facility] CLIA [id number] [address] [place] [address] STATES OF [facility] Hematocrit (Bld) [Volume fraction] 39.4 % Normal 39.0-51.0 [facility] Comment on above: Order Comment: Speci men Type: URINE SPECIMEN Ordering Facility: [facility] Address: [address] [place] [address] Performed By: #### L [id number] #### [facility] CLIA [id number] [address] [place] [address] [place] Hemoglobin (Bld) [Mass/Vol] 13.6 g/dL Normal 13.0-17.0 [facility] Comment on above: Order Comment: Speci men Type: URINE SPECIMEN Ordering Facility: [facility] Address: [address] [place] [address] Performed By: #### L [id number] #### [facility] CLIA [id number] [address] [place] [address] [place] MCH (RBC) [Entitic mass] 29.3 pg Normal 26.0-34.0 [facility] Comment on above: Order Comment: Speci men Type: URINE SPECIMEN Ordering Facility: [facility] Address: [address] [place] [address] Performed By: #### L [id number] #### [facility] CLIA [id number] [address] [place] [address] [place] MCHC (RBC) [Mass/Vol] 34.5 g/dL Normal 30.5-36.0 [facility] Comment on above: Order Comment: Speci men Type: URINE SPECIMEN Ordering Facility: [facility] Address: [address] [place] [address] Performed By: #### L [id number] #### [facility] CLIA [id number] [address] [place] [address] [place] MCV (RBC) [Entitic vol] 84.9 fL Normal 80.0-100.0 [facility] Comment on above: Order Comment: Speci men Type: URINE SPECIMEN Ordering Facility: [facility] Address: [address] [place], [place] [address] Performed By: #### L [id number] #### [facility] CLIA [id number] [address] [place] [address] [place] Nucleated RBC (Bld) [#/Vol] 10*3/uL Normal <0.01 [facility] Comment on above: Order Comment: Speci men Type: URINE SPECIMEN Ordering Facility[facility] Address: [address] [place], [place] [address] Performed By: #### L [id number] #### [facility] CLIA [id number] [address] [place] [address] [place] Platelet mean volume (Bld) [Entitic vol] 9.9 fL Normal 9.0-12.7 [facility] Comment on above: Order Comment: Speci men Type: URINE SPECIMEN Order[facility] Address: [address] [place], [place] [address] Performed By: #### L [id number] #### [facility] CLIA [id number] [address] [place] [address] [place] Platelets (Bld) [#/Vol] 187 10*3/uL Normal 150-400 [facility] Comment on above: Order Comment: Speci men Type: URINE SPECIMEN Order[facility] Address: [address] [place], [place] [address] Performed By: #### L [id number] #### [facility] CLIA [id number] [address] [place] [address] [place] RBC (Bld) [#/Vol] 4.64 10*6/uL Normal 4.20-6.00 [facility] Comment on above: Order Comment: Speci men Type: URINE SPECIMEN Ordering [facility] Address: [address] [place], [place] [address] Performed By: #### L [id number] #### [facility] CLIA [id number] [facility] [place] [address] [place] WBC (Bld) [#/Vol] 5.29 10*3/uL Normal 3.70-11.00 [facility] Comment on above: Order Comment: Speci men Type: URINE SPECIMEN Ordering Facility[facility] Address: [address] [place] [address] Performed By: #### L [id number] #### [facility] CLIA [id number] [address] [place], [place] [id number] [place] [facility] Comprehensive metabolic 2000 panelon 07-29-2021 Albumin [Mass/Vol] 4.6 g/dL Normal 3.9-4.9 [facility] Comment on above: Order Comment: Speci men Type: BLOOD SPECIMENOrdering Facility: [facility] Address: [address] [place] [address] Performed By: #### L IPB, 14806-0 ####[facility] HOSPITALRahe[facility]CLIA [id number] [place] [address] [place] ALP [Catalytic activity/Vol] 80 U/L Normal 38-113 [facility] Comment on above: Order Comment: Speci men Type: BLOOD SPECIMENOrdering Facility: [facility] Address: [address] [place] [address] Performed By: #### L IPB, 66884-6 ####[facility]YNMOUNT[facility] MEDICAL CENTERRaheem [facility] LABCLIA [id number] [place] [id number] [place] OF [facility] ALT [Catalytic activity/Vol] 58 U/L High 10-54 [facility] Comment on above: Order Comment: Speci men Type: BLOOD SPECIMENOrdering Facility: [facility] Address: [address] [place] [address] Performed By: #### L IPB, 93794-6 ####[facility] HOSPITALRaheem [facility]CLIA [id number] [place] [id number] [place] Anion gap [Moles/Vol] 7 mmol/L Low 9-18 [facility] Comment on above: Order Comment: Speci men Type: BLOOD SPECIMENOrdering Facility: [facility] Address: [address] [place], [place] [address] Performed By: #### L KIERRAB, 55998-0 ####[facility] LABCLIA [id number] [place] [address] [place] AST [Catalytic activity/Vol] 39 U/L Normal 14-40 [facility] Comment on above: Order Comment: Speci men Type: BLOOD SPECIMENOrdering Facility: [facility] Address: [address] [place], [place] [address] Performed By: #### L FILIPE, 96457-7 ####[facility] LABCLIA [id number] [place] [id number] [place] Bilirubin [Mass/Vol] 0.4 mg/dL Normal 0.2-1.3 [facility] Comment on above: Order Comment: Speci men Type: BLOOD SPECIMENOrdering Facility: [facility] Address: [address] [place], [place] [address] Performed By: #### L FILIPE, 35361-9 ####[facility] LABCLIA [id number] [place] [id number] [place] Calcium [Mass/Vol] 9.8 mg/dL Normal 8.5-10.2 [facility] Comment on above: Order Comment: Speci men Type: BLOOD SPECIMENOrdering Facility: [facility] Address: [address] [place], [place] [address] Performed By: #### L KIERRAB, 04125-8 ####[facility] LABCLIA [id number] [place] [id number] [place] Chloride [Moles/Vol] 104 mmol/L Normal 97-105 [facility] Comment on above: Order Comment: Speci men Type: BLOOD SPECIMENOrdering Facility: [facility] Address: [address] [place], [place] [address] Performed By: #### L IPB, 30200-6 ####[facility] LABCLIA [id number] [place] [address] [place] CO2 [Moles/Vol] 28 mmol/L Normal 22-30 [facility] Comment on above: Order Comment: Speci men Type: BLOOD SPECIMENOrdering Facility: [facility] Address: [address] [place] [address] Performed By: #### L KIERRAB, 29623-6 ####[facility]CLIA [id number] [place] [address] [place] Creatinine [Mass/Vol] 0.98 mg/dL Normal 0.73-1.22 [facility] Comment on above: Order Comment: Speci men Type: BLOOD SPECIMENOrdering Facility: [facility] Address: [address] [place] [address] Performed By: #### L FILIPE, 55248-8 ####AMHMOUNT[facility]IEW [facility]ION[facility] MEDICAL CENTERRaheem [facility]ODIA [id number] [address] STATES OF [facility] ESTIMATED GLOMERULAR FILTRATION RATE 95 mL/min/1.73m??? Normal >=60 [facility] Comment on above: Order Comment: Speci men Type: BLOOD SPECIMENOrdering Facility: [facility] Address: [address] [place] [address] Result Comment: Halle mated Glomerular Filtration Rate [...] reflect actual GFR. Performed By: #### L KIERRAB, 84938-2 ####[facility]ERSRahe[facility] LABIA [id number] [place] [address] [place] Glucose [Mass/Vol] 120 mg/dL High 74-99 [facility] Comment on above: Order Comment: Speci men Type: BLOOD SPECIMENOrdering Facility: [facility] Address: [address] [place] [address] Result Comment: The [place] Diabetes Association (ADA) provides guidance for cutoff [...] Standards of Medical Care in Diabetes 2016, [place] Diabetes Association. Diabetes Care. 2016.39(Suppl 1). Performed By: #### Natalie DENT, 67228-1 ####[facility]CLIA [id number] [place] [address] [place] Potassium [Moles/Vol] 4.7 mmol/L Normal 3.7-5.1 [facility] Comment on above: Order Comment: Speci men Type: BLOOD SPECIMENOrdering Facility: [facility] Address: [address] [place] [address] Performed By: #### L FILIPE, 04898-5 ####[facility]CLIA [id number] [place] [address] [place] Protein [Mass/Vol] 7.6 g/dL Normal 6.3-8.0 [facility] Comment on above: Order Comment: Speci men Type: BLOOD SPECIMENOrdering Facility: [facility] Address: [address] Performed By: #### L KIERRAB, 05679-3 ####[facility] HOSPITALRaheem [facility] LABIA [id number] [place] [id number] [place] Sodium [Moles/Vol] 139 mmol/L Normal 136-144 [facility] Comment on above: Order Comment: Speci men Type: BLOOD SPECIMENOrdering Facility: [facility] Address: [address] [place] [address] Performed By: #### L IPB, 94061-5 ####[facility] LABCLIA [id number] [place] [id number] [place] [facility] Urea nitrogen [Mass/Vol] 18 mg/dL Normal 9-24 [facility] Comment on above: Order Comment: Speci men Type: BLOOD SPECIMENOrdering Facility: [facility] Address: [address] [place] [address] Performed By: #### L IPB, 91775-7 ####[facility] LABCLIA [id number] [place] [id number] [place] [facility] HGB A1Con 07-29-2021 Average glucose Estimated from glycated hemoglobin (Bld) [Mass/Vol] 117 mg/dL Normal [facility] Comment on above: Order Comment: Speci men Type: BLOOD SPECIMENOrdering Facility: [facility] Address: [address] [place] [address] Result Comment: eAG: (Estimated average glucose) is a calculated value from HgbA1c and is insurance sales representative of the average blood glucose level in the last 2-3 month period. Performed By: #### H BA1C ####[facility]IA [id number] [place] [id number] [place] HbA1c (Bld) [Mass fraction] 5.7 % High 4.3-5.6 [facility] Comment on above: Order Comment: Speci men Type: BLOOD SPECIMENOrdering Facility: [facility] Address: [address] [place] [address] Result Comment: Amer ican Diabetes Association guidelines indicate that patients with HgbA1c in the range 5.7-6.4% are at increased risk for development of diabetes, and intervention by lifestyle modification may be beneficial. HgbA1c greater or equal to 6.5% is considered diagnostic of diabetes. Performed By: #### H BA1C ####[facility] LABCLIA [id number] [place] [address] [place] LIPID PANEL BASICon 07-30-19 22 Cholesterol [Mass/Vol] 240 mg/dL High <200 [facility] Comment on above: Order Comment: Selmai men Type: BLOOD SPECIMENOrdering Facility: [facility] Address: [address] [place] [address] Result Comment: <200 mg/dL, Desirable 200-239 mg/dL, Borderline high >239 mg/dL, High Performed By: #### L FILIPE, 07830-5 ####[facility] LABCLIA [id number] [place] [address] [place] Cholesterol in HDL [Mass/Vol] 37 mg/dL Low >39 [facility] Comment on above: Order Comment: Tessa men Type: BLOOD SPECIMENOrdering Facility: [facility] Address: [address] [place] [address] Result Comment: 40-5 9 mg/dL, Acceptable >59 mg/dL, High: Negative risk factor for coronary heart disease <40 mg/dL, Low: Positive risk factor for coronary heart disease Performed By: #### L FILIPE, 98191-1 ####[facility] LABCLIA [id number] [place] [address] [place] Cholesterol in LDL [Mass/Vol] 175 mg/dL High <100 [facility] Comment on above: Order Comment: Tessa flores Type: BLOOD SPECIMENOrdering Facility: [facility] Address: [address] [place] [address] Result Comment: <100 mg/dL, Optimal 100-129 mg/dL, Near optimal/above optimal 130-159 mg/dL, Borderline high 160-189 mg/dL, High >189 mg/dL, Very high Secondary prevention optimal LDL Cholesterol levels are recommended to be < 70 mg/dL Performed By: #### L FILIPE, 51983-1 ####[facility] LABCLIA [id number] [place] [address] [place] Cholesterol in LDL/Cholesterol in HDL [Mass ratio] 4.73 {ratio} High <2.54 [facility] Comment on above: Order Comment: Speci men Type: BLOOD SPECIMENOrdering Facility: [facility] Address: [address] [place] [address] Result Comment: Doris tucker: 1. National Cholesterol Education Program ATP III Guideline At-A-Glance Quick Desk Reference: National Heart, Lung, and Blood [place]. National Institutes of Health. 2001: NIH Publication No. 01-3305. 2. An International Atherosclerosis Society position paper: global recommendations for the management of dyslipidemia: executive summary, Atherosclerosis. 2014: 232(2):410-413. Performed By: #### L KIERRAB, 09987-2 ####[facility] LABCLIA [id number] [place] [id number] [place] Cholesterol in VLDL [Mass/Vol] 28 mg/dL Normal <30 [facility] Comment on above: Order Comment: Speci men Type: BLOOD SPECIMENOrdering Facility: [facility] Address: [address] [place] [address] Performed By: #### Natalie LOZADAB, 10232-6 ####[facility]NMOUNT[facility] MEDICAL CENTERRaheem [facility]CLIA [id number] [place] [address] [place] Cholesterol non HDL [Mass/Vol] 203 mg/dL High <130 [facility] Comment on above: Order Comment: Tessa flores Type: BLOOD SPECIMENOrdering Facility: [facility] Address: [address] [place] [address] Result Comment: <130 mg/dL, Optimal 130-159 mg/dL, Near optimal/above optimal 160-189 mg/dL, Borderline high 190-219 mg/dL, High >219 mg/dL, Very high Secondary prevention optimal non HDL Cholesterol levels are recommended to be <100 mg/dL Performed By: #### L IPB, 06375-7 ####[facility]ITALT [facility]CLIA [id number] [place] [id number] [place] Cholesterol.total/Ch olesterol in HDL [Mass ratio] 6.49 {ratio} High <5.10 [facility] Comment on above: Order Comment: Selmai men Type: BLOOD SPECIMENOrdering Facility: [facility] Address: [address] [place] [address] Performed By: #### L IPB, 68904-4 ####[facility]CLIA [id number] [place] [id number] [place] FASTING TIME 12. hrs Normal [facility] Comment on above: Order Comment: Speci men Type: BLOOD SPECIMENOrdering Facility: [facility] Address: [address] [place] [address] Performed By: #### L IPB, 97118-2 ####[facility]CLIA [id number] [address] [place] Triglyceride [Mass/Vol] 140 mg/dL Normal <150 [facility] Comment on above: Order Comment: Speci men Type: BLOOD SPECIMENOrdering Facility: [facility] Address: [address] [place] [address] Result Comment: <150 mg/dL, Normal 150-199 mg/dL, Borderline high 200-499 mg/dL, High >499 mg/dL, Very high Performed By: #### L IPB, 52005-7 ####[facility] HOSPITALRaheem [facility] LABIA [id number] [place] [address] [place] PSA/[facility]OSTSPECAG [facility] 07[facility]29 Prostate specific Ag [Mass/Vol] 0.41 ng/mL Normal <2.60 [facility] Comment on above: Order Comment: Speci men Type: BLOOD SPECIMENOrdering Facility: [facility] Address: [address] [place] [address] Result Comment: Tota l PSA test methodology used is the Electrochemiluminescence Immunoassay by [employer]. Total PSA values by differing methodologies cannot be interchanged. Performed By: #### P SAS1 ####[facility] LABCLIA [id number] [address] [place] TSH SerPl-aCncon 07-29-2021 TSH Qn 4.060 m[IU]/L Normal 0.270-4.20 0 [facility] Comment on above: Order Comment: Speci men Type: BLOOD SPECIMENOrdering Facility: [facility] Address: [address] [place] [address] Performed By: #### 3 016-3 ####[facility] LABCLIA [id number] [place] [address] [place] URINALYSIS, REFLEX MICROSCOP ICon 07-29-2021 Bilirubin Ql (U) Negative Normal Negative [facility] Comment on above: Order Comment: Speci men Type: URINE SPECIMEN [facility] Address: [address] [place] [address] Performed By: #### L [id number] #### [facility]PITALRaheem [facility] CLIA [id number] [address] [place] [address] [place] Clarity (Unsp spec) Clear Normal Clear [facility] Comment on above: Order Comment: Speci men Type: URINE SPECIMEN [facility] Address: [address] [place] [address] Performed By: #### L [id number] #### [facility]OSPITALRahe[facility] CLIA [id number] [address] [place] [address] [place] OF [facility] Color (U) Yellow Normal Yellow [facility] Comment on above: Order Comment: Speci men Type: URINE SPECIMEN [facility] Address: [address] [place] [address] Performed By: #### L [id number] #### [facility]PITALRaheem [facility] CLIA [id number] [address] [place] [address] [place] Glucose Test strip (U) [Mass/Vol] Negative Normal Negative [facility] Comment on above: Order Comment: Speci men Type: URINE SPECIMEN [facility] Address: [address] [place] [address] Performed By: #### L [id number] #### [facility]ITALRahe[facility] CLIA [id number] [address] [place] [address] [place] Hemoglobin Ql (U) Negative Normal Negative [facility] Comment on above: Order Comment: Speci men Type: URINE SPECIMEN [facility] Address: [address] [place] [address] Performed By: #### L [id number] #### [facility]ITALRahe[facility] CLIA [id number] [address] [place] [address] [place] Ketones Ql (U) Negative Normal Negative [facility] Comment on above: Order Comment: Speci men Type: URINE SPECIMEN [facility] Address: [address] [place] [address] Performed By: #### L [id number] #### [facility]ITALRahe[facility] CLIA [id number] [address] [place] [address] [place] Leukocyte esterase Test strip Ql (U) Negative Normal Negative [facility] Comment on above: Order Comment: Speci men Type: URINE SPECIMEN [facility] Address: [address] [place] [address] Performed By: #### L [id number] #### [facility]ITALRahe[facility] CLIA [id number] [address] [place] [address] [place] Nitrite Ql (U) Negative Normal Negative [facility] Comment on above: Order Comment: Speci men Type: URINE SPECIMEN [facility] Address: [address] [place] [address] Performed By: #### L [id number] #### [facility]ITALRahe[facility] CLIA [id number] [address] [place] [address] [place] pH (U) 5.5 [pH] Normal 5.0-8.0 [facility] Comment on above: Order Comment: Speci men Type: URINE SPECIMEN [facility] Address: [address] [place] [address] Performed By: #### L [id number] #### [facility] CLIA [id number] [address] [place] [address] [place] Protein (U) [Mass/Vol] Negative Normal Negative [facility] Comment on above: Order Comment: Speci men Type: URINE SPECIMEN [facility] Address: [address] [place] [address] Performed By: #### L [id number] #### [facility] CLIA [id number] [address] [place] [address] [place] Specific gravity (U) [Rel density] 1.025 Normal 1.005-1.03 0 [facility] Comment on above: Order Comment: Speci men Type: URINE SPECIMEN [facility] Address: [address] [place] [address] Performed By: #### L [id number] #### [facility] CLIA [id number] [address] [place] [address] Urobilinogen Ql (U) 0.2 EU/dL Normal 0.2-1.0 EU/dL [facility] Comment on above: Order Comment: Speci men Type: URINE SPECIMEN [facility] Address: [address] [place] [address] Performed By: #### L [id number] #### [facility]ITALRahe[facility] CLIA [id number] [address] [place] [address] VITAMIN D 25 HYDROXYon 07-29 25-hydroxyvitamin D3 [Mass/Vol] 29.1 ng/mL Low 31.0-80.0 [facility] Comment on above: Order Comment: Speci men Type: BLOOD SPECIMENOrdering Facility: [facility] Address: [address] [place] [address] Result Comment: Clas sification of 25 [place] Vitamin D status: Deficiency/Insufficiency: < or = 30 ng/ml. Sufficiency/Optimal Levels: 31-80 ng/mL Toxicity: > 100 ng/mL. Test performed by chemiluminescent immunoassay. Performed By: #### V ITD ####[facility] LABCLIA [id number] [address] [place] HISTORY PHYSICALon 04-27-202 2 HISTORY PHYSICAL HNO ID: [id number] Author: Prisca Van PA-C Service: ? Author Type: Physician Marketing Content Manager Type: HANDP Filed: 07/26/2021 1:52 PM Note Text: [facility] This is a virtual visit. It required patient-provider interaction for the medical decision making as documented below. Patient has been identified by name and date of : Yes Reason for call: PACC visit Accompanied by: Self Patient name: Nehal Baig Scheduled Surgery: colonoscopy 07/31/2021 at [place] CHIEF COMPLAINT: Patient presents with: Outpatient Colonoscopy [...] fevers. 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 No neurological symptoms or problems. Respiratory: No history of current cough or dyspnea, or pneumonia in the past 6 weeks. +asthma-uses Flovent daily, albuterol 3-5 times/week +JACOBY- BiPAP nightly +lung nodules Cardiovascular: No history of angina, CHF, [place], cardiac surgery or stents. Denies rest pain, gangrene or revascularization/amputati on for PVD. +HTN +HLD GI: see HPI [...] carotid puls (more content not included)... Normal [facility] CNOVon 07-25-2021 CNOV Office Visit ([facility] ) -- NEHAL BAIG ([id number]) 1970 M Date Time Provider Department 07/25/21 9:20 AM SALOME AGUILLON [facility] During your visit today, we recorded the following information about you: Pulse Blood pressure Weight Height 88/minute 136/78 182.3 kg 1.854 m Salome Aguillon APRN.BAND STRAIGHTENER 07/25/2021 5:32 PM Signed This note was created using Affect[employer]riter. Subjective Nehal Baig is a 50 year [...] further at follow-up Salome Aguillon APRN.LEODAN Aguillon APRN.LEDOAN 07/25/2021 9:43 AM Signed Bowel Preparation Instructions for: Golytely, Nulytely, Trilyte or Coly (more content not included)... [facility] -- NEHAL BAIG ([id number]) 1970 M Date Time Provider Department 07/25/21 SALOME AGUILLON [facility] During your visit today, we recorded the following information about you: Beatriz Cowan 07/25/2021 11:22 AM Signed [facility] states the Golytely is on backorder. They have the Newlytely in stock. Is it OK to substitute? Please advise. [phone] Cowan July 25, 2021 11:22 AM Salome Aguillon APRN.CNP 07/25/2021 12:05 PM Signed Called [facility] -pt did not schedule colonoscopy yet -should not fill until schedules and provider performing procedure confirms the prep. Nae Berry RN 07/28/2021 11:42 AM Signed Pharmacy called back; pt is scheduled for Saturday. Salome out of office; Reviewed with Dr. Bose. Per him, Newlytely is an adequated substitution. Pharmacy advise. Allergies As of Date: 07/25/2021 (No Known Allergies) Date Reviewed: 07/25/2021 Reviewed by: Salome Aguillon APRN.CNP - Fully Assessed Reason for Visit: Medication [...] Status:Closed by SALOME AGUILLON on 07/25/21 Normal [facility] CT CHEST WO IVCONon 02-14-20 Radiology Result ACTIONABLE Abnormal [facility] Basic Metab w/rfx MGon 08-02 (cont.) Normal [facility] Comment on above: Result Comment: Aver age GFR for 40-49 years old: 99 mL/min/1.73sq m Chronic Kidney Disease: <60 mL/min/1.73sq m Kidney failure: <15 mL/min/1.73sq m eGFR calculated using average adult body mass. Additional eGFR calculator available at: http://www.[employer]/multiple_crcl_2011.htm Performed By: #### C BC, BMPX ####[facility] [address] [place], [place] [id number] lab Director: Nate Stafford MD Anion gap [Moles/Vol] 11 mmol/L Normal 9-17 [facility] Comment on above: Performed By: #### C BC, BMPX ####[employer] [address] [place], [place] [id number] lab Director: Nate Stafford MD Calcium [Mass/Vol] 8.5 mg/dL Low 8.6-10.4 [facility] Comment on above: Performed By: #### C BC, BMPX ####[employer] [address] [place] [address] Lab Director: Nate Stafford MD Chloride [Moles/Vol] 101 mmol/L Normal 98-107 [facility] Comment on above: Performed By: #### C BC, BMPX ####[facility] [address] [place], [place] [phone] Director: Nate Stafford MD CO2 [Moles/Vol] 23 mmol/L Normal 20-31 [facility] Comment on above: Performed By: #### C BC, BMPX ####[facility] [address] [place], [place] [phone] Director: Nate Stafford MD Creatinine [Mass/Vol] 0.62 mg/dL Low 0.70-1.20 [facility] Comment on above: Performed By: #### C BC, BMPX ####[facility] [address] [place] [address] [phone] Director: Nate Stafford MD GFR, Amer >60 Normal >60 [facility] Comment on above: Performed By: #### C BC, BMPX ####[facility] [address] [place], [place] [phone] Director: Nate Stafford MD GFR,non Amer >60 Normal >60 [place] [facility] Comment on above: Performed By: #### C BC, BMPX ####[facility] [address]omj[address] [place], [place] [phone] Director: Nate Staffrod MD Glucose [Mass/Vol] 120 mg/dL High 70-99 [facility] Comment on above: Performed By: #### C BC, BMPX ####[facility] [address]ajbt[address] [place], [place] [phone] Director: Nate Stafford MD Potassium [Moles/Vol] 4.3 mmol/L Normal 3.7-5.3 [facility] Comment on above: Performed By: #### C BC, BMPX ####[facility] [address] [place] [address] Lab Director: Nate Stafford MD Sodium [Moles/Vol] 135 mmol/L Normal 135-144 [facility] Comment on above: Performed By: #### C BC, BMPX ####[facility] [address]jc[address] [place], [place] [phone] Director: Nate Stafford MD Urea nitrogen [Mass/Vol] 14 mg/dL Normal 6-20 [facility] Comment on above: Performed By: #### C BC, BMPX ####[facility] [address]xd[address] [place], [place] [phone] Director: Nate Stafford MD BUN/CRE Ratio NOT REPORTED Normal -20 [facility] Comment on above: Performed By: #### C BC, BMPX ####[facility] [address] [place], [place] [phone] Director: Nate Stafford MD Staging: NOT REPORTED Normal [facility] Comment on above: Performed By: #### C BC, BMPX ####[facility] [address]24[address] [place] [address] Lab Director: Nate Stafford MD Basic Metabolic Panel w/ Ref johnny to MGOrdered By: Halina Pathak on 08-02-2020 Anion gap [Moles/Vol] 11 mmol/L 9 - 17 mmol/L [employer] Phone: Calcium [Mass/Vol] 8.5 mg/dL Low 8.6 - 10. 4 mg/dL [employer] Phone: Chloride [Moles/Vol] 101 mmol/L 98 - 10 7 mmol/L [employer] Phone: CO2 [Moles/Vol] 23 mmol/L 20 - 31 mmol/L [employer] Phone: Creatinine [Mass/Vol] 0.62 mg/dL Low 0.70 - 1.20 mg/dL [employer] Phone: GFR >60 >60 mL/min [employer] Phone: GFR Non- >60 >60 mL/min [employer]oo[employer] Phone: GFR/1.73 sq M.predicted MDRD (S/P/Bld) [Vol rate/Area] [employer] Phone: Comment on above: Average GFR for 40-4 9 years old: 99 mL/min/1.73sq m Chronic Kidney Disease: <60 mL/min/1.73sq m Kidney failure: <15 mL/min/1.73sq m eGFR calculated using average adult body mass. Additional eGFR calculator available at: http://www.Complex Media/multiple_crcl_2012.htm GFR/1.73 sq M.predicted MDRD (S/P/Bld) [Vol rate/Area] NOT REPORTED [employer] Phone: Glucose [Mass/Vol] 120 mg/dL High 70 - 99 mg/dL [employer] Phone: Interpretation and review of laboratory results Abnormal [employer] Phone: Potassium [Moles/Vol] 4.3 mmol/L 3.7 - 5.3 mmol/L [employer] Phone: Sodium [Moles/Vol] 135 mmol/L 135 - 144 mmol/L [employer] Phone: Urea nitrogen (BldV) [Mass/Vol] 14 mg/dL 6 - 20 mg/dL [employer] Phone: Urea nitrogen/Creatinine (Bld) [Mass ratio] NOT REPORTED [employer] Phone: CBCon 08-02-2020 Erythrocyte distribution width (RBC) [Ratio] 13.0 % Normal 11.8-14.4 [facility] Comment on above: Performed By: #### C BC, BMPX ####[facility] [address] [place] [address] Lab Director: Nate Stafford MD Hematocrit (Bld) [Volume fraction] 41.8 % Normal 40.7-50.3 [facility] Comment on above: Performed By: #### C BC, BMPX ####[facility] [address]zq[address] [place], [place] [phone] Director: Nate Stafford MD Hemoglobin (Bld) [Mass/Vol] 13.8 g/dL Normal 13.0-17.0 [facility] Comment on above: Performed By: #### C BC, BMPX ####[facility] [address]mpcr[address]akjw66[address] [place], [place] [phone] Director: Nate Stafford MD MCH (RBC) [Entitic mass] 29.3 pg Normal 25.2-33.5 [facility] Comment on above: Performed By: #### C BC, BMPX ####[facility] [address] [place] [address] [phone] Director: Nate Stafford MD MCHC (RBC) [Mass/Vol] 33.0 g/dL Normal 28.4-34.8 [facility] Comment on above: Performed By: #### C BC, BMPX ####[facility] [address] [place] [address] Lab Director: Nate Stafford MD MCV (RBC) [Entitic vol] 88.7 fL Normal 82.6-102.9 [facility] Comment on above: Performed By: #### C BC, BMPX ####[facility] [address]ib[address] [place], [place] [phone] Director: Nate Stafford MD NRBC Automated 0.0 per 100 WBC Normal 0.0 [facility] Comment on above: Performed By: #### C BC, BMPX ####[facility] [address]uni[address] [place] [address] Lab Director: Nate Stafford MD Platelet mean volume (Bld) [Entitic vol] 10.9 fL Normal 8.1-13.5 [facility] Comment on above: Performed By: #### C BC, BMPX ####[facility] [address] [place] [address] Lab Director: Nate Stafford MD Platelets (Bld) [#/Vol] 221 10*3/uL Normal 138-453 [facility] Comment on above: Performed By: #### C AXEL, BMPX ####[facility] [address]xc[address]81 [place] [address] Lab Director: Nate Stafford MD RBC (Bld) [#/Vol] 4.71 10*6/uL Normal 4.21-5.77 [facility] Comment on above: Performed By: #### C AXEL, BMPX ####[facility] [address] [place], [place] [phone] Director: Nate Stafford MD WBC (Bld) [#/Vol] 10.6 10*3/uL Normal 3.5-11.3 [facility] Comment on above: Performed By: #### C BC, BMPX ####[facility] [address] [place], [place] [phone] Director: Nate Stafford MD CBCOrdered By: Halina Pathak on 08-02-2020 Hematocrit (Bld) [Volume fraction] 41.8 % 40.7 - 50.3 % [employer] Phone: Hemoglobin.gastroint estinal spec 1 Ql (Stl) 13.8 g/dL 13.0 - 17.0 g/dL [employer] Phone: MCH (RBC) [Entitic mass] 29.3 pg 25.2 - 33.5 pg [employer] Phone: MCHC (RBC) [Mass/Vol] 33.0 g/dL 28.4 - 34.8 g/dL [employer] Phone: MCV (RBC) [Entitic vol] 88.7 fL 82.6 - 102.9 fL [employer] Phone: NRBC Automated 0.0 0.0 per 100 WBC [employer] Phone: Platelet distribution width (Bld) [Ratio] 13.0 % 11.8 - 14.4 % [employer] Phone: Platelet mean volume (Bld) [Entitic vol] 10.9 fL 8.1 - 13.5 fL [employer] Phone: Platelets (Bld) [#/Vol] 221 10*3/uL [employer] Phone: RBC (Bld) [#/Vol] 4.71 10*6/uL 4.21 - 5.77 m/uL [employer] Phone: WBC (Bld) [#/Vol] 10.6 10*3/uL [employer] Phone: Trauma Profileon 08-02-2020 (cont.) Normal [facility] Comment on above: Result Comment: Aver age GFR for 40-49 years old: 99 mL/min/1.73sq m Chronic Kidney Disease: <60 mL/min/1.73sq m Kidney failure: <15 mL/min/1.73sq m eGFR calculated using average adult body mass. Additional eGFR calculator available at: http://www.SkyPhrase.com/multiple_crcl_2012.htm Performed By: #### E ISABEL GRUBBS ####[facility] WonderM[address] [place] [address] lab Director: Nate Stafford MD Anion gap [Moles/Vol] 10 mmol/L Normal 9-17 [facility] Comment on above: Performed By: #### E ISABEL GRUBBS ####[facility] [address] [place], [place] [phone] Director: Nate Stafford MD Chloride [Moles/Vol] 100 mmol/L Normal 98-107 [facility] Comment on above: Performed By: #### E RTPF, TROPI ####[facility] T[address]cf[address]whrjs[address] [place], [place] [phone] Director: Nate Stafford MD CO2 [Moles/Vol] 24 mmol/L Normal 20-31 [facility] Comment on above: Performed By: #### E RTPF, TROPI ####[facility] [address] [place], [place] [phone] Director: Nate Stafford MD Creatinine [Mass/Vol] 0.71 mg/dL Normal 0.70-1.20 [facility] Comment on above: Performed By: #### E RTPF, TROPI ####[facility] [address] [place], [place] [phone] Director: Nate Stafford MD Ethanol [Mass/Vol] mg/dL Normal <10 [facility] Comment on above: Performed By: #### E RTPF, TROPI ####[facility] [address]ls[address] [place], [place] [phone] Director: Nate Stafford MD Ethanol percent <0.010 Normal <0.010 [facility] Comment on above: Performed By: #### E RTPF, TROPI ####[facility] [address] [place], [place] [phone] Director: Nate Stafford MD GFR, Amer >60 Normal >60 [facility] Comment on above: Performed By: #### E RTPF, TROPI ####[facility] [address]rm[address]rtor[address] [place], [place] [phone] Director: Nate Stafford MD GFR,non Amer >60 Normal >60 [facility] Comment on above: Performed By: #### E RTPF, TROPI ####[facility] [address]rsj[address] [place], [place] [phone] Director: Nate Stafford MD Glucose [Mass/Vol] 109 mg/dL High 70-99 [facility] Comment on above: Performed By: #### E RTPF, TROPI ####[facility] [address] [place], [place] [phone] Director: Nate Stafford MD Potassium [Moles/Vol] 4.2 mmol/L Normal 3.7-5.3 [facility] Comment on above: Performed By: #### E RTPF, TROPI ####[facility] [address] [place] [phone])[phone] Director: Nate Stafford MD Sodium [Moles/Vol] 134 mmol/L Low 135-144 [facility] Comment on above: Performed By: #### E RTPF, TROPI ####[facility] [address] [place], [place] [phone] Director: Nate Stafford MD Urea nitrogen [Mass/Vol] 15 mg/dL Normal 6-20 [facility] Comment on above: Performed By: #### E RTPF, TROPI ####[facility] [address]nxf[address]kg[address]75 [place] [address]([facility])[phone] Director: Nate Stafford MD Troponinon 08-02-2020 Troponin, High Sens 6 ng/L Normal 0-22 [facility] Comment on above: Result Comment: High Sensitivity Troponin values cannot be compared with other Troponin methodologies. Patients with high levels of Biotin oral intake (i.e >5mg/day) may have falsely decreased Troponin levels. Samples collected within 8 hours of biotin intake may require additional information for diagnosis. Performed By: #### E RTPF, TROPI ####[facility] [address] [place] [address] lab Director: Nate Stafford MD Type + Screenon 08-02-2020 Type + Screen Sample Expiration 08/04/2020,2359 Arm Band Number [id number] ABO/Rh(D) A NEGATIVE Antibody Screen NEGATIVE Normal [facility] Comment on above: Performed By: #### T YS ####[facility] [address] [place] [address] lab Director: Nate Stafford MD CT CERVICAL SPINE [...] Johnny Smalls MD 08/01/20 Final result Normal [facility] CT CERVICAL SPINE WO CONTRAS TOrdered By: Ronnie Lund on 08-01-2020 C6-7 cervical spondy losis and degenerative disc disease. Evidence of paracervical spasm. No acute bony abnormalities are noted [employer] Phone: EXAMINATION: CT OF T HE CERVICAL [...] intact. The visualized lung apices are clear. [employer] Phone: Francisco, Mhpn Incoming R adiant Results From [employer] - 08/01/2020 7:04 PM EDT EXAMINATION: CT [...] spasm. No acute bony abnormalities are noted [employer] Phone: CT CHEST ABDOMEN PELVIS W CO [...] stone. The prostate is normal in size. Peritoneum/Retroperitoneum : No ascites or pneumoperitoneum. Abdominal aorta is [...] Elizabeth Shoemaker MD 08/01/20 Final result Normal [facility] CT CHEST ABDOMEN PELVIS W CO [...] to Lung-RADS guidelines. Reference: Radiology. 2017; 284(1):228-43. [employer] Phone: EXAMINATION: CT OF T HE CHEST, [...] stone. The prostate is normal in size. Peritoneum/Retroperitoneum : No ascites or pneumoperitoneum. Abdominal aorta is normal in caliber. There is a fat containing umbilical hernia. Bones/Soft Tissues: No acute osseous abnormality. [employer] Work Phone: Francisco, Mhpn Incoming R adiant Results From [employer] - 08/01/2020 7:19 PM EDT EXAMINATION: CT [...] stone. The prostate is normal in size. Peritoneum/Retroperitoneum : No ascites or pneumoperitoneum. Abdominal aorta is [...] to Lung-RADS guidelines. Reference: Radiology. 2017; 284(1):228-43. [employer] Phone: CT HEAD WO CONTRASTon 2020 CT [...] Jarek Fernández MD 08/01/20 Final result Normal [facility] CT Head WO ContrastOrdered B y: Ronnie Lund on 08-01-2020 1. No acute intracra nial abnormality. [employer] Phone: EXAMINATION: CT OF T HE HEAD [...] clear. SOFT TISSUES/SKULL: The calvarium is intact. [employer] Phone: Francisco, Mhpn Incoming R adiant Results From [employer] - 08/01/2020 7:01 PM EDT EXAMINATION: CT [...] intact. IMPRESSION: 1. No acute intracranial abnormality. [employer] Phone: CT LUMBAR SPINE TRAUMA RECON STRUCTIONon [...] Johnny Smalls MD 08/01/20 Final result Normal [facility] CT THORACIC SPINE TRAUMA REC ONSTRUCTIONon [...] Johnny Smalls MD 08/01/20 Final result Normal [facility] Drug Scr, Abuse, Uron 2020 Amphetamine(s),Ur Negative Normal NEG [facility] Comment on above: Result Comment: (Positive cutoff 1000 ng/mL) Performed By: #### U AMIC, LOUIS #### [facility] [address] [place] [address] Chip Mixer: Nate Stafford MD Barbiturate(s),Ur Negative Normal NEG [facility] Comment on above: Result Comment: (Positive cutoff 200 ng/mL) Performed By: #### U AMIC, LOUIS #### [facility] [address] [place] [address] Chip Mixer: Nate Stafford MD Benzodiazepine(s) Negative Normal NEG [facility] Comment on above: Result Comment: (Positive cutoff 200 ng/mL) Performed By: #### U AMIC, LOUIS #### [facility] [address] [place] [address] Chip [employer]er: Nate Stafford MD Cannabinoid(s),Ur Negative Normal NEG [facility] Comment on above: Result Comment: (Positive cutoff 50 ng/mL) Performed By: #### U AMIC, LOUIS #### [facility] [address] [place] [address] Chip [employer]er: Nate Stafford MD Cocaine Metabolite Negative Normal NEG [facility] Comment on above: Result Comment: (Positive cutoff 300 ng/mL) Performed By: #### U AMIC, LOUIS #### [facility] [address] [place] [address] [employer]: Nate Stafford MD Interpretive Info Assay provides medic al screening only. The absence of expected drug(s) and/or Normal [facility] Comment on above: Result Comment: meta bolite(s) may indicate diluted or adulterated urine, limitations of testing or timing of collection. Testing for legal purposes should be confirmed by another method. To request confirmation of test result, please call the lab within 7 days of sample submission. Performed By: #### U AMIC, LOUIS #### [employer] [facility] [address] [place] [address] Chip [employer]er: Nate Stafford MD Methadone Ql (U) Negative Normal NEG [facility] Comment on above: Result Comment: (Positive cutoff 300 ng/mL) Performed By: #### U AMIC, LOUIS #### [facility] [address] [place] [address] Chip Mixer: Nate Stafford MD Opiate(s), Ur Negative Normal NEG [facility] Comment on above: Result Comment: (Positive cutoff 300 ng/mL) Performed By: #### U AMIC, LOUIS #### [facility] [address] [place] [address] Chip [employer]: Nate Stafford MD Oxycodone, Urine Negative Normal NEG [facility] Comment on above: Result Comment: (Positive cutoff 100 ng/mL) Performed By: #### U AMIC, LOUIS #### [facility] [address] [place] [address] Chip [employer]: Nate Stafford MD Phencyclidine, Ur Negative Normal NEG [facility] Comment on above: Result Comment: (Positive cutoff 25 ng/mL) Performed By: #### U AMIC, LOUIS #### [facility] [address] [place] [address] Chip [employer]: Nate Stafford MD Buprenorphrine, Ur NOT REPORTED Normal NEG [facility] Comment on above: Performed By: #### U AMIC, LOUIS #### [facility] [address] [place] [address] [employer]: Nate Stafford MD MDMA, Urine NOT REPORTED Normal NEG [facility] Comment on above: Performed By: #### U AMIC, LOUIS #### [facility] [address] [place] [address] [employer]er: Nate Stafford MD Methamphetamine, Ur NOT REPORTED Normal NEG [facility] Comment on above: Performed By: #### U AMIC, LOUIS #### [facility] [address] [place] [address] Chip [employer]er: Nate Stafford MD Propoxyphene,Urine NOT REPORTED Normal NEG [facility] Comment on above: Performed By: #### U AMIC, LOUIS #### [facility] [address] [place] [address] [employer]: Nate Stafford MD Tricyclic antidepressants Screen Ql (U) NOT REPORTED Normal NEG [facility] Comment on above: Performed By: #### U AMIC, LOUIS #### [facility] [address] [place] [address]693 Chip Mixer: Nate Stafford MD No Panel InformationOrdered By: [...] to body habitus but requires clinical correlation. [employer] Phone: EXAMINATION: TWO XRA Y VIEWS OF [...] may relate to swelling or body habitus. [employer] Phone: Francisco, Mhpn Incoming R adiant Results From [employer] - 08/01/2020 9:41 PM EDT EXAMINATION: TWO [...] to body habitus but requires clinical correlation. [employer] Phone: No Panel InformationOrdered By: Ronnie Lund on 08-01-2020 Degenerative disc di sease at L5-S1. No acute bony abnormalities are seen in the thoracic or lumbar spine [employer] Phone: EXAMINATION: CT OF T HE LUMBAR [...] SOFT TISSUES/RETROPERITONEUM: No paraspinal mass is seen. [employer] Phone: Francisco, Mhpn Incoming R adiant Results From [employer] - 08/01/2020 7:11 PM EDT EXAMINATION: CT [...] seen in the thoracic or lumbar spine [employer] Phone: TRAUMA PANELOrdered By: Carlos Pathak on 08-01-2020 Lawson Test Unable to perform te sting: No specimen received. [employer] Phone: Anion gap [Moles/Vol] 10 mmol/L 9 - 17 mmol/L [employer] Phone: aPTT Coag (Bld) [Time] 23.3 s [employer] Phone: Comment on above: IV Heparin Therapy Range: 48.6-77.8 Blood Bank Specimen BILL FOR SERVICES PERFORMED [employer] Phone: Carboxyhemoglobin Unable to perform te sting: No specimen received. % [employer] Work Phone: Chloride [Moles/Vol] 100 mmol/L 98 - 10 7 mmol/L [employer] Phone: CO2 [Moles/Vol] 24 mmol/L 20 - 31 mmol/L [employer] Phone: Creatinine [Mass/Vol] 0.71 mg/dL 0.70 - 1.20 mg/dL [employer] Phone: Ethanol [Mass/Vol] mg/dL <10 mg/dL [employer] Phone: Ethanol percent <0.010 <0.010 % [employer] Work Phone: FIO2 Unable to perform te sting: No specimen received. [employer]ja Phone: GFR >60 >60 mL/min [employer] Phone: GFR Non- >60 >60 mL/min [employer] Phone: GFR/1.73 sq M.predicted MDRD (S/P/Bld) [Vol rate/Area] [employer] Phone: Comment on above: Average GFR for 40-4 9 years old: 99 mL/min/1.73sq m Chronic Kidney Disease: <60 mL/min/1.73sq m Kidney failure: <15 mL/min/1.73sq m eGFR calculated using average adult body mass. Additional eGFR calculator available at: http://www.SkyPhrase.[employer]/multiple_crcl_2012.htm GFR/1.73 sq M.predicted MDRD (S/P/Bld) [Vol rate/Area] NOT REPORTED [employer] Phone: Glucose [Mass/Vol] 109 mg/dL High 70 - 99 mg/dL [employer] Work Phone: hCG Qual PATIENT IS MALE NEGATIVE [facility] Work Phone: HCO3, Venous Unable to perform te sting: No specimen received. 24.0 - 30.0 mmol/L [employer] Phone: Hematocrit (Bld) [Volume fraction] 42.3 % 40.7 - 50.3 % [employer] Phone: Hemoglobin.gastroint estinal spec 1 Ql (Stl) 14.2 g/dL 13.0 - 17.0 g/dL [employer] Phone: INR Coag (Bld) [Relative time] 1.0 {INR} [employer] Phone: Comment on above: Therapeutic Range: Moderate Anticoagulant Intensity: INR = 2.0-3.0 High Anticoagulant Intensity: INR = 2.5-3.5 Interpretation and review of laboratory results Abnormal [employer] Phone: MCH (RBC) [Entitic mass] 29.3 pg 25.2 - 33.5 pg [employer] Phone: MCHC (RBC) [Mass/Vol] 33.6 g/dL 28.4 - 34.8 g/dL [employer] Phone: MCV (RBC) [Entitic vol] 87.2 fL 82.6 - 102.9 fL [employer] Phone: Methemoglobin Unable to perform te sting: No specimen received. % [employer] Phone: Mode Unable to perform te sting: No specimen received. [employer] Phone: Negative Base Excess, Srikanth Unable to perform testing: No specimen received. 0.0 - 2.0 mmol/L [employer] Phone: NOTIFICATION Unable to perform te sting: No specimen received. [employer] Phone: NOTIFICATION TIME Unable to perform te sting: No specimen received. [employer] Phone: NRBC Automated 0.0 0.0 per 100 WBC [employer] Phone: O2 Device/Flow/% Unable to perform te sting: No specimen received. [employer] Phone: O2 Sat, Srikanth Unable to perform te sting: No specimen received. % [employer] Phone: Oxyhemoglobin Unable to perform te sting: No specimen received. 95.0 - 98.0 % [employer] Phone: pCO2, Srikanth Unable to perform te sting: No specimen received. [employer] Phone: pCO2, Srikanth, Temp Adj Unable to perform te sting: No specimen received. [employer] Phone: Peep/Cpap Unable to perform te sting: No specimen received. [employer] Phone: pH, Srikanth Unable to perform te sting: No specimen received. [employer] Phone: pH, Srikanth, Temp Adj Unable to perform te sting: No specimen received. [employer] Phone: Platelet distribution width (Bld) [Ratio] 12.9 % 11.8 - 14.4 % [employer] Phone: Platelet mean volume (Bld) [Entitic vol] 10.1 fL 8.1 - 13.5 fL [employer] Phone: Platelets (Bld) [#/Vol] 220 10*3/uL [employer] Phone: pO2, Srikanth Unable to perform te sting: No specimen received. [employer] Phone: pO2, Srikanth, Temp Adj Unable to perform te sting: No specimen received. [employer] Phone: Positive Base Excess, Srikanth Unable to perform testing: No specimen received. 0.0 - 2.0 mmol/L [employer] Phone: Potassium [Moles/Vol] 4.2 mmol/L 3.7 - 5.3 mmol/L [employer] Phone: PSV Unable to perform te sting: No specimen received. [employer] Phone: PT Coag (PPP) [Time] 10.4 s [employer] Phone: Pt Temp Unable to perform te sting: No specimen received. [employer]ooja Phone: Pt. Position Unable to perform te sting: No specimen received. [employer] Phone: RBC (Bld) [#/Vol] 4.85 10*6/uL 4.21 - 5.77 m/uL [employer] Phone: Respiratory Rate Unable to perform te sting: No specimen received. [employer] Phone: Sample Site Unable to perform te sting: No specimen received. [employer] Phone: Set Rate Unable to perform te sting: No specimen received. [employer] Phone: Sodium [Moles/Vol] 134 mmol/L Low 135 - 144 mmol/L [employer] Phone: Text for Respiratory Unable to perform t esting: No specimen received. [employer] Phone: Total Hb Unable to perform te sting: No specimen received. 12.0 - 16.0 g/dl [employer] Phone: Total Rate Unable to perform te sting: No specimen received. [employer] Phone: Urea nitrogen (BldV) [Mass/Vol] 15 mg/dL 6 - 20 mg/dL [employer] Phone: VT Unable to perform te sting: No specimen received. [employer] Phone: WBC (Bld) [#/Vol] 14.1 10*3/uL High [employer] Phone: TYPE AND SCREENOrdered By: Ivonne pascual Jesenia on 08-01-2020 ABO/Rh Negative [facility] [employer] Work Phone: Arm Band Number [id number] [facility] Work Phone: Expiration Date 08/04/2020,2359 [facility] [employer] Work Phone: Trauma Profileon 08-01-2020 aPTT Coag (Bld) [Time] 23.3 s Normal 20.5-30.5 [facility] Comment on above: Result Comment: IV Heparin Therapy Range: 48.6-77.8 Performed By: #### E RTISABEL GIBBS ####[address] [address] Lab Director: Nate Stafford MD INR Coag (PPP) [Relative time] 1.0 {INR} Normal [facility] Comment on above: Result Comment: Therapeutic Range: Moderate Anticoagulant Intensity: INR = 2.0-3.0 High Anticoagulant Intensity: INR = 2.5-3.5 Performed By: #### ISABEL CANELA ####[address] [address] Lab Director: Nate Stafford MD PT Coag (PPP) [Time] 10.4 s Normal 9.1-12.3 [facility] Comment on above: Performed By: #### E ROMIE TROPI ####[facility] [address] [place] [address] Lab Director: Nate Stafford MD Erythrocyte distribution width (RBC) [Ratio] 12.9 % Normal 11.8-14.4 [facility] Comment on above: Performed By: #### E RTBERNIE TROPI ####[address] [address] Lab Director: Nate Stafford MD Hematocrit (Bld) [Volume fraction] 42.3 % Normal 40.7-50.3 [facility] Comment on above: Performed By: #### E ROMIE TROPI ####[place] [place], [place] [phone] Director: Nate Stafford MD Hemoglobin (Bld) [Mass/Vol] 14.2 g/dL Normal 13.0-17.0 [facility] Comment on above: Performed By: #### E RTBERNIE TROPI ####[facility] [address] [place], [place] [phone] Director: Nate Stafford MD MCH (RBC) [Entitic mass] 29.3 pg Normal 25.2-33.5 [facility] Comment on above: Performed By: #### E RTBERNIE TROPI ####[address] [phone] Director: Nate Stafford MD MCHC (RBC) [Mass/Vol] 33.6 g/dL Normal 28.4-34.8 [facility] Comment on above: Performed By: #### SHARLA CANELAI ####[address] [phone] Director: Nate Stafford MD MCV (RBC) [Entitic vol] 87.2 fL Normal 82.6-102.9 [facility] Comment on above: Performed By: #### E RTBERNIE TROPI ####[facility] [address] [place], [place] [phone] Director: Nate Stafford MD NRBC Automated 0.0 per 100 WBC Normal 0.0 [facility] Comment on above: Performed By: #### E RTBERNIE TROPI ####[facility] [address] [place], [place] [phone] Director: Nate Stafford MD Platelet mean volume (Bld) [Entitic vol] 10.1 fL Normal 8.1-13.5 [facility] Comment on above: Performed By: #### E RTPF, TROPI ####[facility] [address] [place] [address] Lab Director: Nate Stafford MD Platelets (Bld) [#/Vol] 220 10*3/uL Normal 138-453 [facility] Comment on above: Performed By: #### E RTPF, TROPI ####[facility] [address]vbbt[address] [place] [address] Lab Director: Nate Stafford MD RBC (Bld) [#/Vol] 4.85 10*6/uL Normal 4.21-5.77 [facility] Comment on above: Performed By: #### E RTPF, TROPI ####[facility] [address] [place] [address] Lab Director: Nate Stafford MD WBC (Bld) [#/Vol] 14.1 10*3/uL High 3.5-11.3 [facility] Comment on above: Performed By: #### E RTPF, TROPI ####[facility] [address] [place] [address] Lab Director: Nate Stafford MD Staging: NOT REPORTED Normal [facility] Comment on above: Performed By: #### E RTPF, TROPI ####[facility] Q[address]clnmpqmh9156 [place] [address] Lab Director: Nate Stafford MD Blood Bank BILL FOR SERVICES PERFORMED Normal [facility] Comment on above: Performed By: #### E RTPF, TROPI ####[facility] [address] [place] [address] Lab Director: Nate Stafford MD Troponinon 08-01-2020 Troponin Interp. NOT REPORTED Normal [facility] Comment on above: Performed By: #### E RTPF, TROPI ####[facility] [address] [place], [place] [phone] Lab Director: Nate Stafford MD Troponin T NOT REPORTED Normal <0.03 [facility] Comment on above: Performed By: #### E RTPF, TROPI ####[facility] WonderFjuftklwqwwi8466 [place], [place] [phone] Lab Director: Nate Stafford MD TroponinOrdered By: Halina tyler on 08-01-2020 Troponin Interp NOT REPORTED [employer] Work Phone: Troponin T NOT REPORTED <0.03 ng/mL [employer] Phone: Troponin, High Sensitivity 6 ng/L 0 - 22 ng/L [facility] Phone: Comment on above: High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 [address] [place] [id number] Scheduling Instructions eval and treat. Worker's Compensation Claim. Specialty Diagnoses / Procedures Referred By Contac t Referred To Contact Nutrition Diagnoses Morbid obesity with BMI of 50.0-59.9, adult (HCC) Mixed hyperlipidemia Essential hypertension Arthralgia of multiple sites Prediabetes Obstructive sleep apnea syndrome Abnormal weight gain Fatty metamorphosis of liver Procedures CONSULT TO NUTRITION THERAPY OFFICE/OUTPATIENT [facility] 60-74 MINUTES Anh Mena MD [address] [facility], [address] [place] [address] Referral ID Status Reason Start Date Expiration Date Visits Requested Visits Authorized [id number] Pending Review PCP Requested Referral 08/15/2021 11/13/2021 1 1 Specialty Diagnoses / Procedures Referred By Contac t Referred To Contact Diagnoses Morbid obesity with BMI of 50.0-59.9, adult (HCC) Prediabetes Fatty metamorphosis of liver Essential hypertension Mixed hyperlipidemia Procedures CONSULT WEIGHT MANAGEMENT FITNESS PROGRAM OFFICE/OUTPATIENT [facility] 60-74 MINUTES Anh Mena MD [address] [facility], [address] [place] [address] Referral ID Status Reason Start Date Expiration Date Visits Requested Visits Authorized [id number] Pending Review PCP Requested Referral 09/13/2021 09/13/2022 1 1 Specialty Diagnoses / Procedures Referred By Contac t Referred To Contact CT IMAGING Diagnoses Lung nodules Procedures CT CHEST WO IVCON CAT SCAN OF CHEST Trey Sharma MD [address] [facility] [address] [place] [address] Ct Imaging Referral ID Status Reason Start Date Expiration Date V isits Requested Visits Authorized [id number] Closed Auto-Generate d Referral 08/11/2021 04/29/2022 1 1 Specialty Diagnoses / Procedures Referred By Contac t Referred To Contact Nephrology Diagnoses Proteinuria, unspecified type Procedures CONSULT TO NEPHROLOGY OFFICE/OUTPATIENT [facility] 60-74 MINUTES Salome Aguillon, ADJUNCT TEACHER.BAND STRAIGHTENER [address] [place] [address] Referral ID Status Reason Start Date Expiration Date Visits Requested Visits Authorized [id number] Pending Review PCP Requested Referral 05/21/2022 05/21/2023 1 1 Specialty Diagnoses / Procedures Referred By Contac t Referred To Contact [facility] IM[facility] Diagnoses Proteinuria, unspecified type Procedures US KIDNEY/BLADDER US RETROPERITONEAL REAL TIME W/IMAGE COMPLETE Salome Aguillon, ADJUNCT TEACHER.BAND STRAIGHTENER [address] [place] [address] Us Imaging Referral ID Status Reason Start Date Expiration Date Visits Requested Visits Authorized [id number] Authorized Auto-Generat ed Referral 05/21/2022 06/20/2023 1 1 Specialty Diagnoses / Procedures Referred By Contac t Referred To Contact Nutrition Diagnoses Morbid obesity with BMI of 50.0-59.9, adult (HCC) Procedures CONSULT TO NUTRITION THERAPY MEDICAL NUTRITION ASSMT&IVNTJ INDIV EACH 15 [place] MEDICAL NUTRITION ASSMT&IVNTJ INDIV EACH 15 [place] MEDICAL NUTRITION ASSMT&IVNTJ INDIV EACH 15 [place] MEDICAL NUTRITION ASSMT&IVNTJ INDIV EACH 15 [place] Salome Aguillon APRN.BAND STRAIGHTENER [address] [place] [address] Referral ID Status Reason Start Date Expiration Date Visits Requested Visits Authorized [id number] Pending Review PCP Requested Referral 05/21/2022 05/21/2023 1 1 Reason evaluate and treat Diagnosis 1 Lumbar radiculopathy , right (M54.16) Referral Organization [facility] Referring Provider First Name Siri Referring Provider Last Name Damien Referring Provider Specialty Nurse Pract itioner Referred Organization [facility] Referred Provider Cyndi Mejia Referred Address [address] [place], [place],[address] Referred Provider Specialty Pain Medicin e Referral Priority Routine General Notes Anita Jacobsen 023 02:42:58 PM >Received today and waiting for office notes to be locked before sending referral Reason weight managment Diagnosis 1 BMI 50.0-59.9, adult (Z68.43) Referral Organization [facility] Referring Provider First Name Siri Referring Provider Last Name Damien Referring Provider Specialty Nurse Pract itioner Referred Organization [facility] Referred Provider Reece Cyr Referred Address [address] [facility] [address],[place], [place],[address] Referred Provider Specialty Internal Med icine Referral Priority Routine General Notes Anita Jacobsen 023 01:36:37 PM >Received today and sent P2P Reason evaluate and treat Diagnosis 1 Lumbar radiculopathy , right (M54.16) Referral Organization [facility] Referring Provider First Name Siri Referring Provider Last Name Damien Referring Provider Specialty Nurse Pract itioner Referred Organization [facility] Referred Address [address] [place], [place],[address] Referred Provider Specialty Physical The rapist Referral Priority Routine Advance Directives No Advanced Directives Records FoundLatest Code Status on File Code Status Date Activated Date Inactivated Comments Full Code 08/01/2020 11:59 PM Documents on File Type Date Recorded Patient Industrial Court Magistrate Expl anation Advance Directive(s) 01/24/2021 2:04 PM Advance Directive(s) 12/27/2020 12:28 PM Documents on File Type Date Recorded Patient Industrial Court Magistrate Expl anation Advance Directive(s) 01/24/2021 2:04 PM Advance Directive(s) 12/27/2020 12:28 PM Documents on File Type Date Recorded Patient Industrial Court Magistrate Expl anation Advance Directive(s) 07/31/2021 8:28 AM Advance Directive(s) 01/24/2021 2:04 PM Advance Directive(s) 12/27/2020 12:28 PM Documents on File Type Date Recorded Patient Industrial Court Magistrate Expl anation Advance Directive(s) 07/31/2021 8:28 AM [...] infusion 30 mL/hr, INTRAVENOUS, CONTINUOUS, Starting on Sat07/31/21 at 0930, Until Sat07/31/21 at 1144, Preprocedure [...] Starting on Jillian 08/10/21 at 0948, Until 09/19/21 at 1535, Per Protocol - for use [...] Mediastinal hematoma, initial encounter Juanita Carmona MD [address] [place] [id number] [facility] Reason Onset Date Comments PHMA/[place] Outreach 06/27/2021 BP, colo Reason Comments Medication Problem Reason Comments Rx Refills Reason Comments Outpatient Colonoscopy Reason Comments Physical colonoscopy result Reason Comments New Patient [place] Obesity Specialty Diagnoses / Procedures Referred By Brian t Referred To Contact Diagnoses Morbid obesity with BMI of 50.0-59.9, adult (HCC) Procedures ENDOCRINE MEDICAL WEIGHT MANAGEMENT OFFICE/OUTPATIENT [facility] 60-74 MINUTES Salome Aguillon, ADJUNCT TEACHER.BAND STRAIGHTENER [address] [place] [address] Referral ID Status Reason Start Date Expiration Date Visits Requested Visits Authorized [id number] Pending Review PCP Requested Referral 08/10/2021 08/10/2022 1 1 Reason Comments Patient Education Assessment Specialty Diagnoses / Procedures Referred By Contac t Referred To Contact Nutrition Diagnoses Morbid obesity with BMI of 50.0-59.9, adult (HCC) Mixed hyperlipidemia Essential hypertension Arthralgia of multiple sites Prediabetes Obstructive sleep apnea syndrome Abnormal weight gain Fatty metamorphosis of liver Procedures CONSULT TO NUTRITION THERAPY OFFICE/OUTPATIENT [facility] MDM 60-74 MINUTES Anh Mena MD [address] [facility], [address] [place] [address] Referral ID Status Reason Start Date Expiration Date Visits Requested Visits Authorized [id number] Pending Review PCP Requested Referral 08/15/2021 11/13/2021 1 1 Reason Comments Medical Weight Management Specialty Diagnoses / Procedures Referred By Contac t Referred To Contact CT IMAGING Diagnoses Lung nodules Procedures CT CHEST WO IVCON CAT SCAN OF CHEST Trey Sharma MD [address] [place] [address] Ct Imaging Referral ID Status Reason Start Date Expiration Date V isits Requested Visits Authorized [id number] Closed Auto-Generate d Referral 08/11/2021 04/29/2022 1 [...] section and content) DATE CREATED AUTHOR 08/08/2020 [facility] DATE CREATED AUTHOR AUTHOR'S ORGANIZ ATION 08/01/2021 [facility] DATE CREATED AUTHOR AUTHOR'S ORGANIZ ATION 09/21/2021 [facility] DATE CREATED AUTHOR AUTHOR'S ORGANIZ ATION 04/25/2022 [facility] DATE CREATED AUTHOR AUTHOR'S ORGANIZ ATION 05/27/2022 [facility] DATE CREATED AUTHOR AUTHOR'S ORGANIZ ATION 05/31/2022 [facility] DATE CREATED AUTHOR AUTHOR'S ORGANIZ ATION 10/25/2022 [facility] DATE CREATED AUTHOR AUTHOR'S ORGANIZ ATION 03/09/2023 [facility] DATE CREATED AUTHOR AUTHOR'S ORGANIZ ATION 03/14/2023 [facility] DATE CREATED AUTHOR AUTHOR'S ORGANIZ ATION 03/15/2023 [facility] DATE CREATED AUTHOR AUTHOR'S ORGANIZ ATION 04/13/2023 [facility] EPIC Source Comments (unrecognize d section and content) In the event this informatio n is protected by the Federal Confidentiality of Alcohol and Drug Abuse Patient Records regulations: The Federal rules restrict any use of the information to criminally investigate or prosecute any alcohol or drug abuse patient.[facility] the event this information is protected by the Federal Confidentiality of Alcohol and Drug Abuse Patient Records regulations: The Federal rules restrict any use of the information to criminally investigate or prosecute any alcohol or drug abuse patient.[facility] Hospital[facility] the event this information is protected by the Federal Confidentiality of Alcohol and Drug Abuse Patient Records regulations: The Federal rules restrict any use of the information to criminally investigate or prosecute any alcohol or drug abuse patient.[facility] Hospital[facility] the event this information is protected by the Federal Confidentiality of Alcohol and Drug Abuse Patient Records regulations: The Federal rules restrict any use of the information to criminally investigate or prosecute any alcohol or drug abuse patient.[facility] the event this information is protected by the Federal Confidentiality of Alcohol and Drug Abuse Patient Records regulations: The Federal rules restrict any use of the information to criminally investigate or prosecute any alcohol or drug abuse patient.[facility] Hospital[facility] the event this information is protected by the Federal Confidentiality of Alcohol and Drug Abuse Patient Records regulations: The Federal rules restrict any use of the information to criminally investigate or prosecute any alcohol or drug abuse patient.[facility] Hospital[facility] the event this information is protected by the Federal Confidentiality of Alcohol and Drug Abuse Patient Records regulations: The Federal rules restrict any use of the information to criminally investigate or prosecute any alcohol or drug abuse patient.[facility] HospitalIn the event this information is protected by the Federal Confidentiality of Alcohol and Drug Abuse Patient Records regulations: The Federal rules restrict any use of the information to criminally investigate or prosecute any alcohol or drug abuse patient.[facility] HospitalIn the event this information is protected by the Federal Confidentiality of Alcohol and Drug Abuse Patient Records regulations: The Federal rules restrict any use of the information to criminally investigate or prosecute any alcohol or drug abuse patient.[facility] HospitalIn the event this information is protected by the Federal Confidentiality of Alcohol and Drug Abuse Patient Records regulations: The Federal rules restrict any use of the information to criminally investigate or prosecute any alcohol or drug abuse patient.[facility] HospitalIn the event this information is protected by the Federal Confidentiality of Alcohol and Drug Abuse Patient Records regulations: The Federal rules restrict any use of the information to criminally investigate or prosecute any alcohol or drug abuse patient.[facility] HospitalIn the event this information is protected by the Federal Confidentiality of Alcohol and Drug Abuse Patient Records regulations: The Federal rules restrict any use of the information to criminally investigate or prosecute any alcohol or drug abuse patient.[facility] HospitalIn the event this information is protected by the Federal Confidentiality of Alcohol and Drug Abuse Patient Records regulations: The Federal rules restrict any use of the information to criminally investigate or prosecute any alcohol or drug abuse patient.[facility] HospitalIn the event this information is protected by the Federal Confidentiality of Alcohol and Drug Abuse Patient Records regulations: The Federal rules restrict any use of the information to criminally investigate or prosecute any alcohol or drug abuse patient.[facility] HospitalIn the event this information is protected by the Federal Confidentiality of Alcohol and Drug Abuse Patient Records regulations: The Federal rules restrict any use of the information to criminally investigate or prosecute any alcohol or drug abuse patient.[facility] HospitalIn the event this information is protected by the Federal Confidentiality of Alcohol and Drug Abuse Patient Records regulations: The Federal rules restrict any use of the information to criminally investigate or prosecute any alcohol or drug abuse patient.[facility] HospitalIn the event this information is protected by the Federal Confidentiality of Alcohol and Drug Abuse Patient Records regulations: The Federal rules restrict any use of the information to criminally investigate or prosecute any alcohol or drug abuse patient.[facility] HospitalIn the event this information is protected by the Federal Confidentiality of Alcohol and Drug Abuse Patient Records regulations: The Federal rules restrict any use of the information to criminally investigate or prosecute any alcohol or drug abuse patient.[facility] HospitalIn the event this information is protected by the Federal Confidentiality of Alcohol and Drug Abuse Patient Records regulations: The Federal rules restrict any use of the information to criminally investigate or prosecute any alcohol or drug abuse patient.[facility] HospitalIn the event this information is protected by the Federal Confidentiality of Alcohol and Drug Abuse Patient Records regulations: The Federal rules restrict any use of the information to criminally investigate or prosecute any alcohol or drug abuse patient.[facility] HospitalIn the event this information is protected by the Federal Confidentiality of Alcohol and Drug Abuse Patient Records regulations: The Federal rules restrict any use of the information to criminally investigate or prosecute any alcohol or drug abuse patient.[facility] HospitalIn the event this information is protected by the Federal Confidentiality of Alcohol and Drug Abuse Patient Records regulations: The Federal rules restrict any use of the information to criminally investigate or prosecute any alcohol or drug abuse patient.[facility] HospitalIn the event this information is protected by the Federal Confidentiality of Alcohol and Drug Abuse Patient Records regulations: The Federal rules restrict any use of the information to criminally investigate or prosecute any alcohol or drug abuse patient.[facility] HospitalIn the event this information is protected by the Federal Confidentiality of Alcohol and Drug Abuse Patient Records regulations: The Federal rules restrict any use of the information to criminally investigate or prosecute any alcohol or drug abuse patient.[facility] HospitalIn the event this information is protected by the Federal Confidentiality of Alcohol and Drug Abuse Patient Records regulations: The Federal rules restrict any use of the information to criminally investigate or prosecute any alcohol or drug abuse patient.[facility] HospitalIn the event this information is protected by the Federal Confidentiality of Alcohol and Drug Abuse Patient Records regulations: The Federal rules restrict any use of the information to criminally investigate or prosecute any alcohol or drug abuse patient.[facility] HospitalIn the event this information is protected by the Federal Confidentiality of Alcohol and Drug Abuse Patient Records regulations: The Federal rules restrict any use of the information to criminally investigate or prosecute any alcohol or drug abuse patient.[facility] HospitalIn the event this information is protected by the Federal Confidentiality of Alcohol and Drug Abuse Patient Records regulations: The Federal rules restrict any use of the information to criminally investigate or prosecute any alcohol or drug abuse patient.[facility] HospitalIn the event this information is protected by the Federal Confidentiality of Alcohol and Drug Abuse Patient Records regulations: The Federal rules restrict any use of the information to criminally investigate or prosecute any alcohol or drug abuse patient.[facility] HospitalIn the event this information is protected by the Federal Confidentiality of Alcohol and Drug Abuse Patient Records regulations: The Federal rules restrict any use of the information to criminally investigate or prosecute any alcohol or drug abuse patient.[facility] Care Teams (unrecognized sec tion and content) Funding Coordinator Relationship Specialty Start Date End Date Salome Aguillon, ADJUNCT TEACHER.BAND STRAIGHTENER [address] [place] [address] PCP - General Family Practice 11/23/19 Funding Coordinator Relationship Specialty Start Date End Date Salome Aguillon, ADJUNCT TEACHER.BAND STRAIGHTENER [address] [place] [address] PCP - General Family Practice 11/23/19 Funding Coordinator Relationship Specialty Start Date End Date Salome Aguillon, ADJUNCT TEACHER.BAND STRAIGHTENER [address] [place] [address] PCP - General Family Practice 11/23/19 Funding Coordinator Relationship Specialty Start Date End Date Salome Aguillon, ADJUNCT TEACHER.BAND STRAIGHTENER [address] [place] [address] PCP - General Family Practice 11/23/19 Funding Coordinator Relationship Specialty Start Date End Date Pal Salome, ADJUNCT TEACHER.BAND STRAIGHTENER [address] [place] [address] PCP - General Family Practice 11/23/19 Funding Coordinator Relationship Specialty Start Date End Date [facility] Salome, ADJUNCT TEACHER.BAND STRAIGHTENER [address] [place] [address] PCP - General Family Practice 11/23/19 Funding Coordinator Relationship Specialty Start Date End Date [facility] Salome, ADJUNCT TEACHER.BAND STRAIGHTENER [address] [place] [address] PCP - General Family Practice 11/23/19 Funding Coordinator Relationship Specialty Start Date End Date [facility] Salome, ADJUNCT TEACHER.BAND STRAIGHTENER [address] [place] [address] PCP - General Family Practice 11/23/19 Funding Coordinator Relationship Specialty Start Date End Date [facility] Salome, ADJUNCT TEACHER.BAND STRAIGHTENER [address] [place] [address] PCP - General Family Practice 11/23/19 Funding Coordinator Relationship Specialty Start Date End [facility] ADJUNCT TEACHER.BAND STRAIGHTENER [address] [place] [address] PCP - General Family Practice 11/23/19 Funding Coordinator Relationship Specialty Start Date End Date [facility], ADJUNCT TEACHER.BAND STRAIGHTENER [address] [place] [address] PCP - General Family Practice 11/23/19 Funding Coordinator Relationship Specialty Start Date End Date [facility], ADJUNCT TEACHER.BAND STRAIGHTENER [address] [place] [address] PCP - General Family Practice 11/23/19 Funding Coordinator Relationship Specialty Start Date End Date [facility], ADJUNCT TEACHER.BAND STRAIGHTENER [address] [place] [address] PCP - General Family Practice 11/23/19 Funding Coordinator Relationship Specialty Start Date End Date Salome Aguillon, ADJUNCT TEACHER.BAND STRAIGHTENER [address] [place] [address] PCP - General Family Practice 11/23/19 Funding Coordinator Relationship Specialty Start Date End Date Salome Aguillon, ADJUNCT TEACHER.BAND STRAIGHTENER [address] [place] [address] PCP - General Family Practice 11/23/19 Funding Coordinator Relationship Specialty Start Date End Date Salome Aguillon, ADJUNCT TEACHER.BAND STRAIGHTENER [address] [place] [address] PCP - General Family Medicine 11/23/19 Funding Coordinator Relationship Specialty Start Date End Date Salome Aguillon, ADJUNCT TEACHER.BAND STRAIGHTENER [address] [place] [address] PCP - General Family Medicine 11/23/19 Funding Coordinator Relationship Specialty Start Date End Date Salome Aguillon, ADJUNCT TEACHER.BAND STRAIGHTENER [address] [place] [address] PCP - General Family Medicine 11/23/19 Funding Coordinator Relationship Specialty Start Date End Date Salome Aguillon, ADJUNCT TEACHER.BAND STRAIGHTENER [address] [place] [address] PCP - General Family Medicine 11/23/19 Funding Coordinator Relationship Specialty Start Date End Date Salome Aguillon, ADJUNCT TEACHER.BAND STRAIGHTENER [address] [facility] [place] [address] PCP - General Family Medicine 11/23/19 Funding Coordinator Relationship Specialty Start Date End Date Salome Aguillon, ADJUNCT TEACHER.BAND STRAIGHTENER [address] [place] [address] PCP - General Family Medicine 11/23/19 Funding Coordinator Relationship Specialty Start Date End Date [facility] Salome, ADJUNCT TEACHER.BAND STRAIGHTENER [address] [place] [address] PCP - General Family Medicine 11/23/19 Funding Coordinator Relationship Specialty Start Date End Date [facility] Salome, ADJUNCT TEACHER.BAND STRAIGHTENER [address] [place] [address] PCP - General Family Medicine 11/23/19 Funding Coordinator Relationship Specialty Start Date End Date [facility] Salome, ADJUNCT TEACHER.BAND STRAIGHTENER [address] [place] [address] PCP - General Family Medicine 11/23/19 Funding Coordinator Relationship Specialty Start Date End Date [facility] Salome, ADJUNCT TEACHER.BAND STRAIGHTENER [address] [place] [address] PCP - General [facility] Medicine 11/23/19 Funding Coordinator Relationship Specialty Start Date End Date [facility] Salome, ADJUNCT TEACHER.BAND STRAIGHTENER [address] [place] [address] PCP - General Family Medicine 11/23/19 Funding Coordinator Relationship Specialty Start Date End Date [facility] Salome, ADJUNCT TEACHER.BAND STRAIGHTENER [address] [place] [address] PCP - General Family Medicine 11/23/19 Team Status: Active Member Role Status Dates Vonnie Guerrero MACHINE TURNER-C Primary Care Provider Active Team Status: Inactive Member Role Status Dates Vonnie Guerrero NP-C Primary Care Provider Active Siri Quezada NP-Krissy Attending Provider Active Team Status: Inactive Member Role Status Dates Salome Aguillon , MACHINE TURNER-C Primary Care Provider Marcosi tyler Yi MACHINE TURNER-C Attending Provider Active Team Status: Inactive Member Role Status Dates Salome Aguillon MACHINE TURNER-C Primary Care Provider Acti KRISTI SappKrissy Attending Provider Active Team Status: Inactive Member Role Status Dates Huan Cowan DO Attending Provider Active Team Status: Active Member Role Status Dates Vonnie Guerrero MACHINE TURNER-C Primary Care Provider Active HAIDER Beard Attending Provider Active Goals (unrecognized section and [...] BE BASED ON THE PRIMARY CLINICAL RECORDS. [facility] [employer] provides no warranty or guarantee of the accuracy or completeness of information in this document.
[2023-04-22 08:10] VITALS: BP 142/87; PULSE 96; RESP 16; TEMP 36.9; O2SAT 96
[2023-04-22 08:59] VITALS: BP 126/75; PULSE 76; RESP 18; O2SAT 98
[2023-04-22 09:02] VITALS: BP 114/54; PULSE 96; RESP 18; O2SAT 98
[2023-04-22] MEDS: LIDOCAINE HCL 2% 400 MG/20 ML MDV 18 ML INJ (09:16)
[2023-04-22] MEDS: BUPIVACAINE HCL 0.25% PF 25 MG/10 ML VIAL 4 ML INJ (09:16)
[2023-04-22] MEDS: TRIAMCINOLONE ACETONIDE 40 MG/ML VIAL 80 MG INJ (09:16)
--- NOTE | 2023-04-22 09:16 | P.ON_ITS ---
Date of procedure: 04/22/23 Pre-op diagnosis: Lumbar spondylosis Post-op diagnosis: same as pre-op Procedure: Procedure: Bilateral L4-5, L5-S1 radiofrequency ablation Medications: Bupivacaine 0.25% 6cc The patient was seen and examined in the preoperative holding area.? The site was marked.? Written informed consent was obtained and placed on the chart.? The patient was brought to the medical procedure unit and placed in the prone position.? A timeout was completed verifying correct patient, procedure, positioning, and special requirements.? The skin overlying the target points, the designated medial branch, were prepped and draped in the usual sterile fashion.? The target point was achieved with a 20-gauge 15 cm with a 10 mm curved active tip radiofrequency cannula under direct fluoroscopic visualization.? The needle was inserted at level L4 on the right side. Needle tip position was confirmed with lateral fluoroscopic position.? Motor stimulation was carried out at 2 Hz up to 5 volts with the absence of extremity activity.? This was repeated at level L5, S1 on right side.?? Sensory stimulation was carried out.? Concordant pain was realized at the above- mentioned sites.? Then radiofrequency lesioning was carried out times 90 seconds at 80 degrees times 2 lesions at each level.? The radiofrequency probe was removed prior to cannula removal.? The above-mentioned injectate was placed in 1 mL increments.? The needle was removed. The same procedure, with the same steps, was then completed on the left side at the same levels. Insertion sites were covered.? The patient was taken to the postoperative recovery area and monitored for an appropriate length of time before being found suitable for discharge in the company of a responsible adult. Anesthesia: Local Surgeon: Brenton Pena Pathology: none sent Condition: stable Disposition: no change
== END 2023-04-22 09:20 | disposition home or self-care (01) ==
PROVIDERS: PCP Nurse Practitioner; Visit Provider Anesthesiology
DX: M47.816 Spondylosis without myelopathy or radiculopathy, lumbar region (principal)
CPT/HCPCS: 64635; 64636; J0665; J3301

== ENCOUNTER 2023-04-22 16:18 | Outpatient (RCR) | payer BC, SELFPAY | END 2023-05-28 12:19 | disposition home or self-care (01) | LOC: PT 16:18 | PROVIDERS: PCP Nurse Practitioner; Visit Provider Nurse Practitioner Family | DX: M48.02 Spinal stenosis, cervical region (principal); M51.9 Unspecified thoracic, thoracolumbar and lumbosacral intervertebral disc disorder; M79.604 Pain in right leg | CPT/HCPCS: 97110; 97140; 97161 ==

== ENCOUNTER 2023-05-10 16:23 | Outpatient (RCR) | payer BC, SELFPAY | END 2023-05-28 11:33 | disposition home or self-care (01) | LOC: PT 16:23 | PROVIDERS: PCP Nurse Practitioner; Visit Provider Podiatrist Foot & Ankle Surgery | DX: S86.012S Strain of left Achilles tendon, sequela (principal); R53.1 Weakness; M48.02 Spinal stenosis, cervical region; M51.9 Unspecified thoracic, thoracolumbar and lumbosacral intervertebral disc disorder; M79.604 Pain in right leg | CPT/HCPCS: 97110; 97140; 97161 ==

== ENCOUNTER 2023-05-23 07:47 | Outpatient (OUT) | payer BC, SELFPAY ==
--- OUTSIDE RECORDS SUMMARY | 2023-05-23 07:51 | XMS_ITS | CCD ---
Author Name Unknown Address [address] [place] [address] Organization [employer] Care Team Providers Care Yard Specialist Name Role Phone Pal HOME ORGANIZER - [facility] Primary Care Provide r [facility] Primary Care Unavailable JUANITA CARMONA Consulting Unavailable JUANITA CARMONA Attending Unavailable JUANITA CARMONA Admitting Unavailable [facility] HOME ORGANIZER.[facility] Primary Care Provider [facility] Primary Care Physician UnavailNicolasa Perry Unavailable Unavailable [facility] Primary Care Physician [phone] [facility] HOME ORGANIZER.[facility] Primary Care Provider [facility] HOME ORGANIZER.[facility] Primary Care Provider [facility] HOME ORGANIZER.[facility] Primary Care Provider DR KINGSLEY HERRERA V Consulting Unavailable YRN, DR ARROYO Attending Unavailable YRN, DR ARROYO Admitting Unavailable TOSHA, DR JAYY Marte Consulting Unavailable YRN, DR ARROYO Consulting Unavailable [facility] Referring Unavailable [facility] Primary Care Unavailable ANH MENA Attending Unavailab ANH Morales Referring Unavailab le [facility] Primary Care Unavailable [facility] Primary Care Unavailable [facility] Referring Unavailable [facility] Primary Care Unavailable [facility] Attending Unavailable [facility] Referring Unavailable [facility] Primary Care Unavailable [facility] Primary Care Unavailable TREY SHARMA Attending Unavailable TREY SHARMA Referring Unavailable [facility] Attending Unavailable [facility] Primary Care Unavailable [facility] Primary Care Unavailable [facility] Referring Unavailable [facility] Primary Care Unavailable [facility] Attending Unavailable [facility] Referring Unavailable [facility] Primary Care Unavailable [facility] Referring Unavailable [facility] Primary Care Unavailable [facility] Attending Unavailable [facility] Primary Care Unavailable JAYY PATEL Referring Unavailable [facility] Primary Care Unavailable [facility] Attending Unavailable [facility] Primary Care Unavailable ANH MENA Attending Unavailab le [facility] Referring Unavailable ANH MENA Referring Unavailab TARSHA Willson Attending Unavailable [facility] Primary Care Unavailable [facility] Primary Care Unavailable [facility] Referring Unavailable [facility] Primary Care Unavailable [facility] Referring Unavailable BledsoeRishiJoel Natalie Attending Unavailable Bledsoe, Joel L Admitting Unavailable [facility] Primary Care Unavailable [facility] Primary Care Unavailable BledsoeJoel L Attending Unavailable ELENA ADAMS Attending Unavailable ELENA ADAMS Admitting Unavailable [facility] Primary Care Unavailable Joel Bledsoe L Attending Unavailable [facility] Primary Care Unavailable Bledsoe, Joel L Admitting Unavailable Joel Bledsoe L Attending Unavailable [facility] Care Unavailable BledsoeJoel Attending Unavailable Bledsoe, Joel L Admitting Unavailable [facility] Primary Care Unavailable Kelly Yi Unavailable Pal, ISABELLE-C [facility] Primary Care Provider HAIDER Yi Attending Provider [phone] HAIDER Quezada Attending Provider HAIDER Guerrero Primary Care Provider Siri Quezada Unavailable Vonnie Guerrero Primary Care Physician [phone] Kandis Amado Unavailable Pal, [employer] ADMINISTRATOR-C [facility] Primary Care Provider HAIDER Yi Attending Provider HAIDER Quezada Attending Provider HAIDER Guerrero Primary Care Provider DO Huan Cowan Attending Provider [phone] Katya Harrington Unavailable Unavailable Siri Quezada Admitting Unavailable Siri Quezada Attending Unavailable Shehan, [facility] Unavailabl e Siri Quezada Admitting Unavailable Siri Quezada Attending Unavailable Vonnie Guerrero Primary Care Unavailable Siri Quezada Admitting Unavailable Siri Quezada Attending Unavailable Yolanda, Vonnie Moran Primary Care Unavailable Yung, Huan A Admitting Unavailable Brown, Huan A Attending Unavailable [facility] Care Unavailabl e Kassidy, Kelly Admitting Unavailable Kassidy, Kelly Attending Unavailable BROWN, HUAN A Referring Unavailable BROWN, HUAN A Attending Unavailable BROWN, HUAN A Attending Unavailable BROWN, HUAN A Referring Unavailable Giedraitis , Brenton Reid Attending Unavailable Giedraitis , Andrius Reid Attending Unavailable Giedraitis , Andrius Reid Attending Unavailable Giedraitis , Andrius Vytautas Attending Unavailable Yung, Huan A Admitting Unavailable Yung, Huan A Attending Unavailable Yolanda, Vonnie Estrada Attending Unavailable Brown, Huan A Attending Unavailable Brown, Huan A Admitting Unavailable Brown, Huan A Admitting Unavailable Brown, Huan A Attending Unavailable Allergies Allergy Classification Reported Allergen(s) Allergy Type Date of Onset Reaction(s) Facility (1 source) No Known Medication Allergies; Translations: [No Known Medication Allergies] Propensity to adverse reactions to drug (disorder) [facility] Repository Medications Current Medications Medication [...] hours. Start: 03-01-2019 take 2 tablets by [facility] every six hours as needed for pain acetaminophen 325 mg Tab 650 mg = 2 tab(s), Oral, q6hr, PRN Pain, Refills(s) 0 Start Date: 03/01/19 Status: Ordered take 2 tablets by mo uth every twelve hours Acetaminophen 500 MG 2 [...] day(s), # 9 cap(s), Refills(s) 0, Pharmacy: [facility], 185.5, cm, 08/08/21 12:06:00 EDT, Height/Length [...] constipation, # 20 cap(s), Refills(s) 0, Pharmacy: [facility], 185.5, cm, 08/08/21 12:06:00 EDT, Height/Length [...] milk, # 60 tab(s), Refills(s) 0, Pharmacy: [facility], 185.5, cm, 08/08/21 12:06:00 EDT, Height/Length [...] oral tablet (2 sources) Muscle Relaxant Start: End: 1 take 1 tablet by mouth [...] Start: 03-23-2017 take 1 capsule by mo [facility] once daily Prilosec 20 mg Cap - DR 20 mg, Oral, Daily, Refills(s) 0 Start Date: 03/23/17 Status: Ordered Start: 2016 take 1 capsule by [facility] once daily Omeprazole 40 mg [...] on above: Take 1 capsule by mo [facility] once daily. 2 tablet ondansetron (ZOFRAN-ODT) [...] Starting Sat08/01/20 at 2358 polyethylene glycol 3350 68494 mg powder for oral solution (1 source) [...] tab(s), Refill(s) 0, 1-2 tab(s) Oral q4hr, [facility], 185.5, cm, 08/08/21 12:06:00 EDT, Height/Length [...] on above: Take 1 tablet by tori daily at bedtime. Take 20 mg by mouth daily at bedtime. celecoxib 200 mg oral capsule (2 sources) Nonsteroidal Anti-inflammatory Drug Start: 03-01-20 End: 07-26-19 22 celecoxib (CELEBREX) 200 mg capsule COMPOUNDED PRESCRIPTION (1 source) Start: 11-09-19 End: 09-14-19 COMPOUNDED PRESCRIPTION Indications: JACOBY (obstructive sleep apnea) Please perform autopap titration study. Please fax results to [phone]. DX: JACOBY G47.33 1 Each 0 11/08/2016 09/13/2020 Discontinued Comment on above: Please perform autop ap titration study. Please fax results to [phone]. DX: JACOBY G47.33 doxepin hydrochloride 10 mg [...] Comment on above: Take 2 tablets by [facility] daily with dinner. 1 ml morphine sulfate 4 mg/ml cartridge (1 source) Opioid Agonist Start: End: 1 morphine injection 4 mg 2 ml orphenadrine citrate 30 mg/ml injection (1 source) Muscle Relaxant Start: 1 End: 1 orphenadrine (NORFLEX) injection 60 mg [...] 10 mL injection (DEFINITY) polyethylene glycol 3350 265193 mg / potassium chloride 2970 mg / sodium bicarbonate 6740 mg / sodium chloride 5860 mg / sodium sulfate 53960 mg powder for oral solution (14 sources) [...] [Morbid obesity with BMI of 50.0-59.9, adult ([facility])] Onset: 11-26-2019 Chronic Other nutritional; endocrine; and metabolic disorders (4 sources) Body mass index (BMI) 50.0-59.9, adult; Translations: [Morbid obesity with BMI of 50.0-59.9, adult ([facility])] Onset: 11-26-2019 Chronic Other nutritional; endocrine; [...] Test Name Value Interpretation Reference Range Facility Family Medicine Office/Clini c Noteon 04-30-2023 Family Medicine Office/Clinic Note HPI Staff Nehal is a 52 year old male presenting to [facility] care Establish Care: History: Any previous diagnosis: [...] machine would like cpap supplies sent to [facility] [employer] in [place] pt does wear full mask- Resmed Air Touch F20 machine is Air Curve 10VAuto Needs refill on lisinopril fYI: pt is seeing 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 pt will have them done at [facility] on Saturday. Ordered: Misc Prescription, Full [...] will send order to medical supplies in [place] Ordered: Misc Prescription, Full Mask Resmed Air [...] qualifying data (more content not included)... Normal [facility] Comment on above: Result Comment: Elec tronically Signed By: Vonnie Gardner\.br\Date and Time Signed: 04/30/23 14:06 EST Operative Reporton Operative Report [id number]#1.00TIFF Normal [facility] MR SHOULDER LEFT WO IV CONTR Kyle [...] Not Available Comment on above: Order Comment: [facility] - C[facility] Approved Patient had Left Shoulder surgery 1 year ago Previous MRI Lab Reportson 03-14-2023 Lab Reports [id number]#1.00TIFF Normal [facility] Lab Miscellaneous-LCon 03-13 Lab Miscellaneous See Ref Report Invalid Interpretation Code [facility] Comment on above: Performed By: #### 1 [id number] #### [facility] [address] [place] [address] Reference Lab Reporton 03-13 Reference Lab Report [id number]#1.00TIFF Normal [facility] Lab Miscellaneous-LCon 03-12 Lab Miscellaneous See Ref Report Invalid Interpretation Code [facility] Comment on above: Result Comment: Perf ormed at: [address] [id number] PhD João Blankenship See scanned report Performed at: [address] [id number] PhD João Blankenship Performed By: #### 1 [id number] #### [facility] [address] [place] [address] Reference Lab Reporton 03-12 Reference Lab Report [id number]#1.00TIFF Normal [facility] Lab Miscellaneous-LCon 03-08 Lab Miscellaneous see ref manager cath lab Invalid Interpretation Code [facility] Comment on above: Performed By: #### 1 [id number] #### [facility] [address] [place] [address] Reference Lab Reporton 03-08 Reference Lab Report [id number]#1.00TIFF Normal [facility] Auto Diffon 03-07-2023 Basophils/100 WBC (Bld) 0.7 % Normal 0.0-2.0 [facility] Comment on above: Order Comment: Order Added by Discern Expert. Performed By: #### 1 [id number] #### [facility] [address] [place] [address] Basophils/Leukocytes Auto (Bld) [Pure # fraction] 0.1 E9/L Normal 0.0-0.2 [facility] Comment on above: Order Comment: Order Added by Discern Expert. Performed By: #### 1 [id number] #### [facility] [address] [place] [address] Eosinophils/100 WBC (Bld) 2.6 % Normal 0.0-8.0 [facility] Comment on above: Order Comment: Order Added by Discern Expert. Performed By: #### 1 [id number] #### [facility] [address] [place] [address] Eosinophils/Leukocyt es Auto (Bld) [Pure # fraction] 0.2 E9/L Normal 0.0-0.5 [facility] Comment on above: Order Comment: Order Added by Discern Expert. Performed By: #### 1 [id number] #### [facility] [address] [place] [address] Lymphocytes/100 WBC (Bld) 18.6 % Normal 14.0-50.0 [facility] Comment on above: Order Comment: Order Added by Discern Expert. Performed By: #### 1 [id number] #### [facility] [address] [place] [address] Lymphocytes/Leukocyt es Auto (Bld) [Pure # fraction] 1.3 E9/L Normal 1.0-4.0 [facility] Comment on above: Order Comment: Order Added by Wilbert Expert. Performed By: #### 1 [id number] #### [facility] [address] [place] [address] Monocytes/100 WBC (Bld) 10.3 % Normal 4.0-14.0 [facility] Comment on above: Order Comment: Order Added by Discern Expert. Performed By: #### 1 [id number] #### [facility] [address] [place] [address] Monocytes/Leukocytes Auto (Bld) [Pure # fraction] 0.7 E9/L Normal 0.2-1.0 [facility] Comment on above: Order Comment: Order Added by Wilbert Expert. Performed By: #### 1 [id number] #### [facility] [address] [place] [address] Neutrophils/100 WBC (Bld) 67.8 % Normal 36.0-75.0 [facility] Comment on above: Order Comment: Order Added by Discern Expert. Performed By: #### 1 [id number] #### [facility] [address] [place] [address] Neutrophils/Leukocyt es Auto (Bld) [Pure # fraction] 4.8 E9/L Normal 2.0-7.5 [facility] Comment on above: Order Comment: Order Added by Discern Expert. Performed By: #### 1 [id number] #### [facility] [address] [place] [address] CBC w/ Auto Diffon 3 Erythrocyte distribution width (RBC) [Ratio] 13.1 % Normal 10.9-14.2 [facility] Comment on above: Performed By: #### 1 [id number] #### [facility] [address] [place] [address] Hematocrit (Bld) [Volume fraction] 39.2 % Normal 37.7-49.0 [facility] Comment on above: Performed By: #### 1 [id number] #### [facility] [address] [place] [address] Hemoglobin (Bld) [Mass/Vol] 13.4 g/dL Low 13.5-17.5 [facility] Comment on above: Performed By: #### 1 [id number] #### [facility] [address] [place] [address]268 MCH (RBC) [Entitic mass] 29.0 pg Normal 27.0-34.0 [facility] Comment on above: Performed By: #### 1 [id number] #### [facility] [address] [place] [address]657 MCHC (RBC) [Mass/Vol] 34.3 g/dL Normal 31.4-36.0 [facility] Comment on above: Performed By: #### 1 [id number] #### [facility] [address] [place] [address] MCV (RBC) [Entitic vol] 84.6 fL Normal 80.0-100.0 [facility] Comment on above: Performed By: #### 1 [id number] #### [facility] [address] [place] [address] Platelet mean volume (Bld) [Entitic vol] 7.7 fL Normal 6.4-10.8 [facility] Comment on above: Performed By: #### 1 [id number] #### [facility] [address] [place] [address] Platelets (Bld) [#/Vol] 261.0 E9/L Normal 150.0-500. 0 [facility] Comment on above: Performed By: #### 1 [id number] #### [facility] [address] [place] [address] RBC (Bld) [#/Vol] 4.6 E12/L Normal 4.3-5.9 [facility] Comment on above: Performed By: #### 1 [id number] #### [facility] [address] [place] [id number] WBC corrected for nucl RBC Auto (Bld) [#/Vol] 7.1 E9/L Normal 4.0-11.0 [facility] Comment on above: Performed By: #### 1 [id number] #### [facility] [address] [place] [id number] CHEMISTRYOrdered By: SYSTEM SYSTEM on 03-07-2023 CRP [Mass/Vol] 1.8 mg/dL Normal <=1.9mg/dL [facility] Remis ol CRPon 03-07-2023 CRP [Mass/Vol] 1.8 mg/dL Normal <=1.9 [facility] Comment on above: Performed By: #### 1 [id number] #### [facility] [address] [place] [address] Consent for Treatmenton Consent for Treatment [id number]#1.00TIFF Normal [facility] Erythrocyte Sedimentation Ra aniya 03-07-2023 ESR (Bld) [Velocity] 9 mm/h Normal 0-19 [facility] Comment on above: Result Comment: PERF ORMED BY: [place] [address] PATHOLOGIST FUR FEEDER BARI GREENE M.D. Performed By: #### E #### [address] Erythrocyte sedimentation ra te by Photometric methodOrdered By: Huan Cowan on 03-07-2023 ESR Photometric method (Bld) [Velocity] 9 mm/hr 0-19 [facility] HEMATOLOGYOrdered By: SYSTEM SYSTEM on 03-07-2023 [...] 13.1 % Normal 10.9 - 14.2 % [facility] Hematocrit (Bld) [Volume fraction] 39.2 % Normal 37.7 - 49.0 % [facility] Hemoglobin (Bld) [Mass/Vol] 13.4 g/dL Low 13.5 - 17.5 gm/dL [facility] MCH (RBC) [Entitic mass] 29.0 pg Normal 27.0 - 34.0 pg FT [facility] MCHC (RBC) [Mass/Vol] 34.3 g/dL Normal 31.4 - 36.0 gm/dL [facility] MCV (RBC) [Entitic vol] 84.6 fL Normal 80.0 - 100.0 fL [facility] Platelet mean volume (Bld) [Entitic vol] 7.7 fL Normal 6.4 - 10.8 fL [facility] Platelets (Bld) [#/Vol] 261.0 E9/L Normal 150.0 - 500.0 E9/L [facility] RBC (Bld) [#/Vol] 4.6 E12/L Normal 4.3 - 5.9 E12/L [facility] WBC corrected for nucl RBC Auto (Bld) [#/Vol] 7.1 E9/L Normal 4.0 - 11.0 E9/L [facility] Lab Miscellaneous-LCon 03-07 Test Code 522288 Invalid Interpretation Code [facility] Comment on above: Performed By: #### 1 [id number] #### [facility] [address] [place] [address] Test Code TO [facility] Invalid Interpretation Code [facility] Comment on above: Performed By: #### 1 [id number] #### [facility] [address] [place] [address] Test Name [place] 6 Invalid Interpretation Code [facility] Comment on above: Performed By: #### 1 [id number] #### [facility] [address] [place] [address] Test Name SED RATE/FIREAL Invalid Interpretation Code [facility] Comment on above: Performed By: #### 1 [id number] #### [facility] [address] [place] [address] Physician Orderon 03-07-2023 Physician Order [id number]#1.00TIFF Normal [facility] Reference Laboratory Testing Ordered By: Yasmeen Ca on 03-07-2023 Sodium [Moles/Vol] 447475 mmol/L Invalid Interpretation Code [facility] Test Code TO [facility] Invalid Interpretation Code [facility] Test Name SED RATE/FIREAL Invalid Interpretation Code [facility]s Test Name [place] 6 Invalid Interpretation Code [facility] SendOut[facility]SS Operative Reporton Operative Report [id number]#1.00TIFF Normal [facility] Formson 02-27-2023 Forms [id number]#1.00TIFF Normal [facility] Provider Letteron 02-27-2023 Provider Letter (Inserted Image. Jessica ble to display) [address] [place] [address] February 27, 2023 NEHAL BAIG [address] [place] [address] : [address] Mazariegos, The above patient has been evaluated at your request for preoperative clearance. After assessment of available pertinent labs and diagnostic tests, I feel this patient is medically optimized for surgery. Final discretion of whether the patient is cleared for surgery remains up to the surgeon/anesthesiologist. Thank you, MOSHE Mota Normal [facility] Auto Diffon 02-26-2023 Basophils/100 WBC (Bld) 0.6 % Normal 0.0-2.0 [facility] Comment on above: Order Comment: Order Added by Discern Expert. Performed By: #### 1 [id number] #### [facility] [address] [place] [address] Basophils/Leukocytes Auto (Bld) [Pure # fraction] 0.1 E9/L Normal 0.0-0.2 [facility] Comment on above: Order Comment: Order Added by Discern Expert. Performed By: #### 1 [id number] #### [facility] [address] [place] [address] Eosinophils/100 WBC (Bld) 2.3 % Normal 0.0-8.0 [facility] Comment on above: Order Comment: Order Added by Discern Expert. Performed By: #### 1 [id number] #### [facility] [address] [place] [address] Eosinophils/Leukocyt es Auto (Bld) [Pure # fraction] 0.2 E9/L Normal 0.0-0.5 [facility] Comment on above: Order Comment: Order Added by Wilbert Expert. Performed By: #### 1 [id number] #### [facility] [address] [place] [address] Lymphocytes/100 WBC (Bld) 16.2 % Normal 14.0-50.0 [facility] Comment on above: Order Comment: Order Added by Wilbert Expert. Performed By: #### 1 [id number] #### [facility] [address] [place] [address] Lymphocytes/Leukocyt es Auto (Bld) [Pure # fraction] 1.5 E9/L Normal 1.0-4.0 [facility] Comment on above: Order Comment: Order Added by Discern Expert. Performed By: #### 1 [id number] #### [facility] [address] [place] [address]309 Monocytes/100 WBC (Bld) 6.8 % Normal 4.0-14.0 [facility] Comment on above: Order Comment: Order Added by Discern Expert. Performed By: #### 1 [id number] #### [facility] [address] [place] [address] Monocytes/Leukocytes Auto (Bld) [Pure # fraction] 0.6 E9/L Normal 0.2-1.0 [facility] Comment on above: Order Comment: Order Added by Discern Expert. Performed By: #### 1 [id number] #### [facility] [address] [place] [address] Neutrophils/100 WBC (Bld) 74.1 % Normal 36.0-75.0 [facility] Comment on above: Order Comment: Order Added by Discern Expert. Performed By: #### 1 [id number] #### [facility] [address] [place] [address] Neutrophils/Leukocyt es Auto (Bld) [Pure # fraction] 6.6 E9/L Normal 2.0-7.5 [facility] Comment on above: Order Comment: Order Added by Discern Expert. Performed By: #### 1 [id number] #### [facility] [address] [place] [address] CBC w/ Auto Diffon Erythrocyte distribution width (RBC) [Ratio] 13.6 % Normal 10.9-14.2 [facility] Comment on above: Performed By: #### 1 [id number] #### [facility] [address] [place] [address] Hematocrit (Bld) [Volume fraction] 40.5 % Normal 37.7-49.0 [facility] Comment on above: Performed By: #### 1 [id number] #### [facility] [address] [place] [address]161 Hemoglobin (Bld) [Mass/Vol] 13.9 g/dL Normal 13.5-17.5 [facility] Comment on above: Performed By: #### 1 [id number] #### [facility] [address] [place] [address] MCH (RBC) [Entitic mass] 28.9 pg Normal 27.0-34.0 [facility] Comment on above: Performed By: #### 1 [id number] #### [facility] [address] [place] [address] MCHC (RBC) [Mass/Vol] 34.3 g/dL Normal 31.4-36.0 [facility] Comment on above: Performed By: #### 1 [id number] #### [facility] [address] [place] [address] 24470 MCV (RBC) [Entitic vol] 84.2 fL Normal 80.0-100.0 [facility] Comment on above: Performed By: #### 1 [id number] #### [facility] [address] [place] [address] 24344 Platelet mean volume (Bld) [Entitic vol] 7.7 fL Normal 6.4-10.8 [facility] Comment on above: Performed By: #### 1 [id number] #### [facility] [address] [place] [address] 74832 Platelets (Bld) [#/Vol] 244.0 E9/L Normal 150.0-500. 0 [facility] Comment on above: Performed By: #### 1 [id number] #### [facility] [address] [place] [address] 62311 RBC (Bld) [#/Vol] 4.8 E12/L Normal 4.3-5.9 [facility] Comment on above: Performed By: #### 1 [id number] #### [facility] [address] [place] [address] 91244 WBC corrected for nucl RBC Auto (Bld) [#/Vol] 8.9 E9/L Normal 4.0-11.0 [facility] Comment on above: Performed By: #### 1 [id number] #### [facility] [address] [place] [address] 41932 Consent for Treatmenton 01-31 Consent for Treatment [id number]#1.00TIFF Normal [facility] HEMATOLOGYOrdered By: SYSTEM SYSTEM on [...] 74.1 % Normal 36.0 - 75.0 % [facility] Neutrophils/Leukocyt es Auto (Bld) [Pure # fraction] 6.6 E9/L Normal 2.0 - 7.5 E9/L [facility] HEMATOLOGYOrdered By: Krystian Earl on 02-26-2023 Erythrocyte distribution width (RBC) [Ratio] 13.6 % Normal 10.9 - 14.2 % [facility] Hematocrit (Bld) [Volume fraction] 40.5 % Normal 37.7 - 49.0 % [facility] Hemoglobin (Bld) [Mass/Vol] 13.9 g/dL Normal 13.5 - 17.5 gm/dL [facility] MCH (RBC) [Entitic mass] 28.9 pg Normal 27.0 - 34.0 pg [facility] MCHC (RBC) [Mass/Vol] 34.3 g/dL Normal 31.4 - 36.0 gm/dL [facility] MCV (RBC) [Entitic vol] 84.2 fL Normal 80.0 - 100.0 fL [facility] Platelet mean volume (Bld) [Entitic vol] 7.7 fL Normal 6.4 - 10.8 fL [facility] Platelets (Bld) [#/Vol] 244.0 E9/L Normal 150.0 - 500.0 E9/L [facility]eAuto[facility] RBC (Bld) [#/Vol] 4.8 E12/L Normal 4.3 - 5.9 E12/L [facility] WBC corrected for nucl RBC Auto (Bld) [#/Vol] 8.9 E9/L Normal 4.0 - 11.0 E9/L [facility] Physician Orderon 02-26-2023 Physician Order [id number]#1.00TIFF Normal [facility] CHEMISTRYOrdered By: SYSTEM SYSTEM on 02-25-2023 CRP [Mass/Vol] 6.7 mg/dL High <=1.9mg/dL [facility] Remis ol CRPon 02-25-2023 CRP [Mass/Vol] 6.7 mg/dL High <=1.9 [facility] Comment on above: Performed By: #### 1 [id number] #### [facility] [address] [place] [address] Consent for Treatmenton 01-31 Consent for Treatment [id number]#1.00TIFF Normal [facility] ED Note-Physicianon 02-26-20 ED Note-Physician [id number]#1.00TIFF Normal [facility] Miscellaneous-LCon 02-25 Test Code 256582 Invalid Interpretation Code [facility] Comment on above: Performed By: #### 1 [id number] #### [facility] [address] [place] [address] Test Name Interleukin-6 Invalid Interpretation Code [facility] Comment on above: Performed By: #### 1 [id number] #### [facility] [address] [place] [address] Physician Orderon 02-25-2023 Physician Order [id number]#1.00TIFF Normal [facility] RAD - MISCon 02-25-2023 RAD - MISC [id number]#1.00TIFF Normal [facility] Reference Laboratory Testing Ordered By: Elysia Oseguera on 02-25-2023 Sodium [Moles/Vol] 880778 mmol/L Invalid Interpretation Code [facility]Out[facility] Test Name Interleukin-6 Invalid Interpretation Code [facility] SendOutsSS Consultation Noteon 02-20-20 Consultation Note [id number]#1.00TIFF Normal [facility] Operative Reporton 3 Operative Report [id number]#1.00TIFF Normal [facility] Consultation Noteon 01-30-20 Consultation Note [id number]#1.00TIFF Normal [facility] RAD - MRI Reporton 3 RAD - MRI Report [id number]#1.00TIFF Normal [facility] XR cerv spine AP/LAT/FLX/EXT on 01-17-2023 XR cerv spine AP/LAT/FLX/[place] [address] XRay Report Signed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 2000 units daily. Urine asymptomatic. Component Latest Ref Rng AND Units 02/10/2022 Color Yellow Yellow Clarity Clear Clear Glucose, Urine Negative Negative Bilirubin, Urine Negative Negative Ketones, Urine Negative Negative Specific [place], Ur 1.005 - 1.030 1.037 (H) Hemoglobin/Blood,Ur [...] other (Epilepsy) (more content not included)... Normal [facility] Outside Recordson 02-15-2022 Outside Records [id number][facility]-15-2022 Provider Orders [id number]#1.00[facility] 25([place])D3 [facility] 2021 25-hydroxyvitamin D3 [Mass/Vol] 28.2 ng/mL Low 31.0-80.0 [facility] Comment on above: Order Comment: Speci men Type: BLOOD SPECIMENOrdering Facility: [facility] Address: [facility] [place] [address] Result Comment: Clas sification of 25 [place] Vitamin D status: Deficiency/Insufficiency: < or = 30 ng/ml. Sufficiency/Optimal Levels: 31-80 ng/mL Toxicity: > 100 ng/mL. Test performed by chemiluminescent immunoassay. Performed By: #### 1 989-3 ####[facility] LABIA [id number] [address] [place] CBC panel Auto (Bld)on 02-10 Erythrocyte distribution width (RBC) [Ratio] 13.2 % Normal 11.5-15.0 [facility] Comment on above: Order Comment: Speci men Type: BLOOD SPECIMENOrdering Facility: [facility] Address: [address] [place] [address] Performed By: #### 5 8410-2 ####[facility]IA [id number] [address] [place] Hematocrit (Bld) [Volume fraction] 41.9 % Normal 39.0-51.0 [facility] Comment on above: Order Comment: Speci men Type: BLOOD SPECIMENOrdering Facility: [facility] Address: [address] [place] [address] Performed By: #### 5 8410-2 ####[facility] [id number] [address] [place] Hemoglobin (Bld) [Mass/Vol] 13.9 g/dL Normal 13.0-17.0 [facility] Comment on above: Order Comment: Speci men Type: BLOOD SPECIMENOrdering Facility: [facility] Address: [address] [place], [place] [address] Performed By: #### 5 8410-2 ####[facility] [id number] [address] [place] MCH (RBC) [Entitic mass] 29.0 pg Normal 26.0-34.0 [facility] Comment on above: Order Comment: Speci men Type: BLOOD SPECIMENOrdering Facility: [facility] Address: [address] [place] [address] Performed By: #### 5 8410-2 ####[facility] [id number] [place] [address] [place] MCHC (RBC) [Mass/Vol] 33.2 g/dL Normal 30.5-36.0 [facility] Comment on above: Order Comment: Speci men Type: BLOOD SPECIMENOrdering Facility: [facility] Address: [address] [place] [address] Performed By: #### 5 8410-2 ####[facility] [id number] [place] [address] [place] MCV (RBC) [Entitic vol] 87.5 fL Normal 80.0-100.0 [facility] Comment on above: Order Comment: Speci men Type: BLOOD SPECIMENOrdering Facility: [facility] Address: [address] [place] [address] Performed By: #### 5 8410-2 ####[facility] [id number] [place] [address] [place] Nucleated RBC (Bld) [#/Vol] 10*3/uL Normal <0.01 [facility] Comment on above: Order Comment: Speci men Type: BLOOD SPECIMENOrdering Facility: [facility] Address: [address] [place], [place] [address] Performed By: #### 5 8410-2 ####[facility] [id number] [place] [address] [place] Platelet mean volume (Bld) [Entitic vol] 10.6 fL Normal 9.0-12.7 [facility] Comment on above: Order Comment: Speci men Type: BLOOD SPECIMENOrdering Facility: [facility] Address: [address] [place] [address] Performed By: #### 5 8410-2 ####[facility]IA [id number] [place] [address] [place] Platelets (Bld) [#/Vol] 198 10*3/uL Normal 150-400 [facility] Comment on above: Order Comment: Speci men Type: BLOOD SPECIMENOrdering Facility: [facility] Address: [address] Performed By: #### 5 8410-2 ####[facility] LABCLIA [id number] [place] [address] [place] RBC (Bld) [#/Vol] 4.79 10*6/uL Normal 4.20-6.00 [facility] Comment on above: Order Comment: Speci men Type: BLOOD SPECIMENOrdering Facility: [facility] Address: [address] Performed By: #### 5 8410-2 ####[facility] LABCLIA [id number] [place] [address] [place] WBC (Bld) [#/Vol] 6.46 10*3/uL Normal 3.70-11.00 [facility] Comment on above: Order Comment: Speci men Type: BLOOD SPECIMENOrdering Facility: [facility] Address: [address] [place], [place] [address] Performed By: #### 5 8410-2 ####[facility] LABCLIA [id number] [place] [address] [place] Comprehensive metabolic 2000 panelon 02-10-2022 Albumin [Mass/Vol] 4.5 g/dL Normal 3.9-4.9 [facility] Comment on above: Order Comment: Speci men Type: BLOOD SPECIMENOrdering Facility: [facility] Address: [address] [place], [place] [address] Performed By: #### 3 016-3, 97946-8 ####[facility] LABCLIA [id number] [facility] [place] [address] [place]#### 98751-5 ####[facility] LABCLIA [id number] [facility] [place] [address] [facility] LABORATORYCLIA [id number] [place] [address] [place] ALP [Catalytic activity/Vol] 85 U/L Normal 38-113 [facility] Comment on above: Order Comment: Speci men Type: BLOOD SPECIMENOrdering Facility: [facility] Address: [address] [place] [address] Performed By: #### 3 016-3, 01851-2 ####[facility] LABCLIA [id number] [place] [address] [place]#### 98470-1 ####[facility] LABCLIA [id number] [address] STATES OF [facility] LABORATORYCLIA [id number] [place] [address] [place] ALT [Catalytic activity/Vol] 34 U/L Normal 10-54 [facility] Comment on above: Order Comment: Speci men Type: BLOOD SPECIMENOrdering Facility: [facility] Address: [address] Performed By: #### 3 016-3, 46818-5 ####[facility] LABCLIA [id number] [place] [address] [place]#### 51145-4 ####[facility] LABCLIA [id number] [place] [address] [place] [facility] [place] LABORATORYCLIA [id number] [place] [address] [place] Anion gap [Moles/Vol] 10 mmol/L Normal 9-18 [facility] Comment on above: Order Comment: Speci men Type: BLOOD SPECIMENOrdering Facility: [facility] Address: [address] [place] [address] Performed By: #### 3 016-3, 93170-0 ####[facility] LABCLIA [id number] [place] [address] [place]#### 30095-0 ####[facility] LABCLIA [id number] [address] [place] LABORATORYCLIA [id number] [place] [address] [place] AST [Catalytic activity/Vol] 25 U/L Normal 14-40 [facility] Comment on above: Order Comment: Speci men Type: BLOOD SPECIMENOrdering Facility: [facility] Address: [address] Performed By: #### 3 016-3, 80745-1 ####[facility] LABCLIA [id number] [place] [address] [place]#### 53947-0 ####[facility] [id number] [address] STATES OF [facility] [place] LABORATORYCLIA [id number] [place] [address] [place] Bilirubin [Mass/Vol] 0.4 mg/dL Normal 0.2-1.3 [facility] Comment on above: Order Comment: Speci men Type: BLOOD SPECIMENOrdering Facility: [facility] Address: [address] [place] [address] Performed By: #### 3 016-3, 01244-6 ####[facility] [id number] [place] [address] [place]#### 73259-2 ####[facility] [id number] [place] [id number] [place] [facility] [place] LABORATORYCLIA [id number] [place] [address] [place] Calcium [Mass/Vol] 9.3 mg/dL Normal 8.5-10.2 [facility] Comment on above: Order Comment: Speci men Type: BLOOD SPECIMENOrdering Facility: [facility] Address: [address] [place] [address] Performed By: #### 3 016-3, ####[facility] [id number] [facility] [place] [id number] [place]#### 55496-7 ####[facility] [id number] [facility] [place] [id number] [place] [facility] [place] LABORATORYCLIA [id number] [place] [address] [place] Chloride [Moles/Vol] 103 mmol/L Normal 97-105 [facility] Comment on above: Order Comment: Speci men Type: BLOOD SPECIMENOrdering Facility: [facility] Address: [address] [place] [address] Performed By: #### 3 016-3, ####[facility] [id number] [facility] [place] [id number] [place]#### 13493-7 ####[facility] [id number] [facility] [place] [id number] [place] [facility] [place] LABORATORYCLIA [id number] [place] [address] [place] CO2 [Moles/Vol] 26 mmol/L Normal 22-30 [facility] Comment on above: Order Comment: Speci men Type: BLOOD SPECIMENOrdering Facility: [facility] Address: [address] [place] [id number] Performed By: #### 3 016-3, ####[facility] [id number] [facility] [place] [id number] [place]#### 67845-9 ####[facility] [id number] [address] LABORATORYCLIA [id number] [place] [address] [place] [facility] Creatinine [Mass/Vol] 0.90 mg/dL Normal 0.73-1.22 [facility] Comment on above: Order Comment: Speci men Type: BLOOD SPECIMENOrdering Facility: [facility] Address: [address] [place] [address] Performed By: #### 3 016-3, ####[facility] [id number] [address] STATES [facility]#### 25964-2 ####[facility] [id number] [address] LABORATORYIA [id number] [address] STATES [facility] ESTIMATED GLOMERULAR FILTRATION RATE 105 mL/min/1.73m??? Normal >=60 [facility] Comment on above: Order Comment: Speci men Type: BLOOD SPECIMENOrdering Facility: [facility] Address: [address] [place] [address] Result Comment: Halle mated Glomerular Filtration Rate [...] actual GFR. Performed By: #### 3 016-3, ####[facility] [id number] [address] [place]#### 66257-9 ####[facility] [id number] [address] LABORATORYCLIA [id number] [place] [address] [place] Glucose [Mass/Vol] 115 mg/dL High 74-99 [facility] Comment on above: Order Comment: Tessa flores Type: BLOOD SPECIMENOrdering Facility: [facility] Address: [address] [place] [id number] Result Comment: The [place] [employer] (ADA) provides guidance for cutoff [...] Standards of Medical Care in Diabetes 2016, [place] [employer]. Diabetes Care. 2016.39(Suppl 1). Performed By: #### 3 016-3, ####[facility]CL[facility] [id number] [place] [address] [place] [place]#### 20240-1 ####[facility] LABCLIA [id number] [place] [address] [place] [facility] LAB[facility]ATORYCLIA [id number] [place] [address] [place] Potassium [Moles/Vol] 4.2 mmol/L Normal 3.7-5.1 [facility] Comment on above: Order Comment: Tessa flores Type: BLOOD SPECIMENOrdering Facility: [facility] Address: [address] [place] [address] Performed By: #### 3 016-3, ####[facility] LABCLIA [id number] [place] [address] [place]#### 14192-1 ####[facility] LABCLIA [id number] [address] STATES OF [facility] LABORATORYCLIA [id number] [place] [address] [place] Protein [Mass/Vol] 6.9 g/dL Normal 6.3-8.0 [facility] Comment on above: Order Comment: Speci men Type: BLOOD SPECIMENOrdering Facility: [facility] Address: [address] [address] Performed By: #### 3 016-3, 76035-5 ####[facility] LABCLIA [id number] [place] [address] [place]#### 88847-4 ####[facility] LABCLIA [id number] [address] STATES [facility] LABORATORYCLIA [id number] [place] [address] [place] Sodium [Moles/Vol] 139 mmol/L Normal 136-144 [facility] Comment on above: Order Comment: Speci men Type: BLOOD SPECIMENOrdering Facility: [facility] Address: [address] Performed By: #### 3 016-3, 02247-7 ####[facility] LABCLIA [id number] [place] [address] [place]#### 52827-9 ####[facility] LABCLIA [id number] [place] [address] [place] [facility] [place] LABORATORYCLIA [id number] [place] [address] [place] Urea nitrogen [Mass/Vol] 15 mg/dL Normal 9-24 [facility] Comment on above: Order Comment: Speci men Type: BLOOD SPECIMENOrdering Facility: [facility] Address: [address] Performed By: #### 3 016-3, 89187-1 ####[facility] LABCLIA [id number] [address] [address] [place]#### 27631-0 ####[facility] LABIA [id number] [address] [address] [place] [facility] [place] LABORATORYCLIA [id number] [facility] [address] [facility] HbA1c (Bld)on 02-10-2022 Average glucose Estimated from glycated hemoglobin (Bld) [Mass/Vol] 105 mg/dL Normal [facility] Comment on above: Order Comment: Tessa flores Type: BLOOD SPECIMENOrdering Facility: [facility] Address: [address] [place] [address] Result Comment: eAG: (Estimated average glucose) is a calculated value from HgbA1c and is mill representative of the average blood glucose level in the last 2-3 month period. Performed By: #### 5 5454-3 ####[facility] LABIA [id number] [address] HbA1c (Bld) [Mass fraction] 5.3 % Normal 4.3-5.6 [facility] Comment on above: Order Comment: Tessa flores Type: BLOOD SPECIMENOrdering Facility: [facility] Address: [address] [place] [address] Result Comment: Amer ican Diabetes Association guidelines indicate that patients with HgbA1c in the range 5.7-6.4% are at increased risk for development of diabetes, and intervention by lifestyle modification may be beneficial. HgbA1c greater or equal to 6.5% is considered diagnostic of diabetes. Performed By: #### 5 5454-3 ####[facility] LABIA [id number] [address] OF [facility] Lipid 1996 panelon 2 Cholesterol [Mass/Vol] 179 mg/dL Normal <200 [facility] Comment on above: Order Comment: Tessa flores Type: BLOOD SPECIMENOrdering Facility: [facility] Address: [address] [place], [place] [address] Result Comment: <200 mg/dL, Desirable 200-239 mg/dL, Borderline high >239 mg/dL, High Performed By: #### 3 016-3, 01170-4 ####[facility] LABCLIA [id number] [place] [address] [place]#### 35872-0 ####[facility] LABCLIA [id number] [address] OF [facility] [place] LABORATORYCLIA [id number] [address] Cholesterol in HDL [Mass/Vol] 36 mg/dL Low >39 [facility] Comment on above: Order Comment: Speci men Type: BLOOD SPECIMENOrdering Facility: [facility] Address: [address] [place] [address] Result Comment: 40-5 9 mg/dL, Acceptable >59 mg/dL, High: Negative risk factor for coronary heart disease <40 mg/dL, Low: Positive risk factor for coronary heart disease Performed By: #### 3 016-3, 21237-2 ####[facility] LABCLIA [id number] [address] STATES OF [place]#### 27059-5 ####[facility] LABCLIA [id number] [address] STATES OF [facility] [place] LABORATORYCLIA [id number] [place] [address] [place] Cholesterol in LDL [Mass/Vol] 104 mg/dL High <100 [facility] Comment on above: Order Comment: Speci men Type: BLOOD SPECIMENOrdering Facility: [facility] Address: [address] [place] [address] Result Comment: <100 mg/dL, Optimal 100-129 mg/dL, Near optimal/above optimal 130-159 mg/dL, Borderline high 160-189 mg/dL, High >189 mg/dL, Very high Secondary prevention optimal LDL Cholesterol levels are recommended to be < 70 mg/dL Performed By: #### 3 016-3, 21209-3 ####[facility] LABCLIA [id number] [address]#### 21893-5 ####[facility] LABCLIA [id number] [address] LABORATORYIA [id number] [address] Cholesterol in LDL/Cholesterol in HDL [Mass ratio] 2.89 {ratio} High <2.54 [facility] Comment on above: Order Comment: Speci men Type: BLOOD SPECIMENOrdering Facility: [facility] Address: [address] [place] [address] Result Comment: Refe rence: 1. National Cholesterol Education Program ATP III Guideline At-A-Glance Quick Desk Reference: National Heart, Lung, and Blood [place]. National Institutes of Health. 2001: NIH Publication No. 01-3305. 2. An International Atherosclerosis Society position paper: global recommendations for the management of dyslipidemia: executive summary, Atherosclerosis. 2014: 232(2):410-413. Performed By: #### 3 016-3, ####[facility] LABCLIA [id number] [address]#### 76919-9 ####[facility] LABCLIA [id number] [address] LABORATORYCLIA [id number] [address] Cholesterol in VLDL [Mass/Vol] 39 mg/dL High <30 [facility] Comment on above: Order Comment: Speci men Type: BLOOD SPECIMENOrdering Facility: [facility] Address: [address] [address] Performed By: #### 3 016-3, 37749-9 ####[facility] LABCLIA [id number] [address] [address] [place]#### 93861-6 ####[facility] LABCLIA [id number] [address] [address] [place] [facility] [place] LABORATORYCLIA [id number] [place] [address] [place] Cholesterol non HDL [Mass/Vol] 143 mg/dL High <130 [facility] Comment on above: Order Comment: Speci men Type: BLOOD SPECIMENOrdering Facility: [facility] Address: [address] [place] [address] Result Comment: <130 mg/dL, Optimal 130-159 mg/dL, Near optimal/above optimal 160-189 mg/dL, Borderline high 190-219 mg/dL, High >219 mg/dL, Very high Secondary prevention optimal non HDL Cholesterol levels are recommended to be <100 mg/dL Performed By: #### 3 016-3, 31167-8 ####[facility] LABCLIA [id number] [place] [address] [place]#### 22391-0 ####[facility] LABCLIA [id number] [place] [address] [place] [facility] LABORATORYCLIA [id number] [place] [address] [place] Cholesterol.total/Ch olesterol in HDL [Mass ratio] 4.97 {ratio} Normal <5.10 [facility] Comment on above: Order Comment: Speci men Type: BLOOD SPECIMENOrdering Facility: [facility] Address: [address] [address] Performed By: #### 3 016-3, 10053-1 ####[facility] LABCLIA [id number] [address] [address] [place]#### 04111-5 ####[facility] LABCLIA [id number] [address] [place] LABORATORYCLIA [id number] [place] [address] [place] FASTING TIME 12 hrs Normal [facility] Comment on above: Order Comment: Speci men Type: BLOOD SPECIMENOrdering Facility: [facility] Address: [address] [place] [address] Performed By: #### 3 016-3, 41946-7 ####[facility] LABCLIA [id number] [place] [address] [place]#### 11699-7 ####[facility] LABCLIA [id number] [address] STATES [facility] LABORATORYCLIA [id number] [place] [address] [place] Triglyceride [Mass/Vol] 197 mg/dL High <150 [facility] Comment on above: Order Comment: Speci men Type: BLOOD SPECIMENOrdering Facility: [facility] Address: [address] [place] [address] Result Comment: <150 mg/dL, Normal 150-199 mg/dL, Borderline high 200-499 mg/dL, High >499 mg/dL, Very high Performed By: #### 3 016-3, 53722-4 ####[facility] LABCLIA [id number] [place] [address] [place]#### 89937-9 ####[facility] LABCLIA [id number] [place] [address] [place] [facility] LABORATORYCLIA [id number] [place] [address] [place] PSA/PROSTSPECAG SCRNon 02-10 Prostate specific Ag [Mass/Vol] 0.42 ng/mL Normal <2.60 [facility] Comment on above: Order Comment: Speci men Type: BLOOD SPECIMENOrdering Facility: [facility] Address: [address] [address] Result Comment: Tota l PSA test methodology used is the Electrochemiluminescence Immunoassay by [employer]. Total PSA values by differing methodologies cannot be interchanged. Performed By: #### P SAS1 ####[facility] LABCLIA [id number] [address] [place] TSH SerPl-aCncon 02-10-2022 TSH Qn 1.220 m[IU]/L Normal 0.270-4.20 0 [facility] Comment on above: Order Comment: Speci men Type: BLOOD SPECIMENOrdering Facility: [facility] Address: [address] [place] [address] Performed By: #### 3 016-3, 14172-7 ####[facility] LABCLIA [id number] [place] [address] [place]#### 24723-4 ####[facility] LABCLIA [id number] [address] STATES OF [facility] LABORATORYCLIA [id number] [place] [address] [place] URINALYSIS, REFLEX MICROSCOP ICon 02-10-2022 Bilirubin Ql (U) Negative Normal Negative [facility] Comment on above: Order Comment: Speci men Type: URINE SPECIMENOrdering Facility: [facility] Address: [address] [address] Performed By: #### L [id number] ####[facility] LABCLIA [id number] [address] [place] CALCIUM OXALATE CRYSTALS (UA) Few Abnormal None Seen [facility] Comment on above: Order Comment: Speci men Type: URINE SPECIMENOrdering Facility: [facility] Address: [address] [address] Performed By: #### L [id number] ####[facility] LABCLIA [id number] [address] [place] Clarity (Unsp spec) Clear Normal Clear Angelo [facility] Comment on above: Order Comment: Speci men Type: URINE SPECIMENOrdering Facility: [facility] Address: [address] [address] Performed By: #### L [id number] ####[facility] LABIA [id number] [address] STATES OF [facility] Color (U) Yellow Normal Yellow [facility] Comment on above: Order Comment: Speci men Type: URINE SPECIMENOrdering Facility: [facility] Address: [address] [place] [address] Performed By: #### L [id number] ####[facility] [id number] [address] OF [facility] Epithelial cells LM.HPF (Urine sed) [#/Area] Few Normal [facility] Comment on above: Order Comment: Speci men Type: URINE SPECIMENOrdering Facility: [facility] Address: [address] [place] [address] Result Comment: Few Performed By: #### L [id number] ####[facility] LABIA [id number] [address] [place] Glucose Test strip (U) [Mass/Vol] Negative Normal Negative [facility] Comment on above: Order Comment: Speci men Type: URINE SPECIMENOrdering Facility: [facility] Address: [address] [place], [place] [address] Performed By: #### L [id number] ####[facility] LABIA [id number] [address] [place] Hemoglobin Ql (U) Negative Normal Negative [facility] Comment on above: Order Comment: Speci men Type: URINE SPECIMENOrdering Facility: [facility] Address: [address] [place] [address] Performed By: #### L [id number] ####[facility] LABCLIA [id number] [place] [address] [place] Ketones Ql (U) Negative Normal Negative [facility] Comment on above: Order Comment: Speci men Type: URINE SPECIMENOrdering Facility: [facility] Address: [address] [place], [place] [address] Performed By: #### L [id number] ####[facility] LABCLIA [id number] [place] [address] [place] Leukocyte esterase Test strip Ql (U) 75 Joyce/mL Abnormal Negative [facility] Comment on above: Order Comment: Speci men Type: URINE SPECIMENOrdering Facility: [facility] Address: [address] [place], [place] [address] Performed By: #### L [id number] ####[facility] LABCLIA [id number] [address] [place] Nitrite Ql (U) Negative Normal Negative [facility] Comment on above: Order Comment: Speci men Type: URINE SPECIMENOrdering Facility: [facility] Address: [address] [place], [place] [address] Performed By: #### L [id number] ####[facility] LABIA [id number] [place] [address] [place] pH (U) 6.0 [pH] Normal 5.0-8.0 [facility] Comment on above: Order Comment: Speci men Type: URINE SPECIMENOrdering Facility: [facility] Address: [address] [place], [place] [address] Performed By: #### L [id number] ####[facility] LABIA [id number] [place] [address] [place] Protein (U) [Mass/Vol] 1+ Abnormal Negative [facility] Comment on above: Order Comment: Speci men Type: URINE SPECIMENOrdering Facility: [facility] Address: [address] [place] [address] Performed By: #### L [id number] ####[facility] LABIA [id number] [address] STATES [facility] RBC LM.HPF (Urine sed) [#/Area] 0-3 /HPF Normal 0-3 /HPF [facility] Comment on above: Order Comment: Speci men Type: URINE SPECIMENOrdering Facility: [facility] Address: [address] [place] [address] Performed By: #### L [id number] ####[facility] [id number] [place] [address] [place] Specific gravity (U) [Rel density] 1.037 High 1.005-1.03 0 [facility] Comment on above: Order Comment: Speci men Type: URINE SPECIMENOrdering Facility: [facility] Address: [address] [place] [address] Performed By: #### L [id number] ####[facility] [id number] [address] Urobilinogen Ql (U) 1+ Abnormal Negative [facility] Comment on above: Order Comment: Speci men Type: URINE SPECIMENOrdering Facility: [facility] Address: [address] [place], [place] [address] Performed By: #### L [id number] ####[facility] LABIA [id number] [address] [place] WBC LM.HPF (Urine sed) [#/Area] 0-5 /HPF Normal 0-5 /HPF [facility] Comment on above: Order Comment: Speci men Type: URINE SPECIMENOrdering Facility: [facility] Address: [address] [place] [address] Performed By: #### L [id number] ####[facility] LABIA [id number] [address] [address] [place] Outside Recordson 02-09-2022 Outside Records [id number][facility] Outside Recordson 01-24-2022 Outside Records [id number]#1.[facility] Coding Summaryon 01-04-2022 Coding Summary HTMLBase 64 WpbepmcjLIj0mLo+PGhlYWQ+PE 3DBTXuR24xwIPixE3MV3xTMJ2S NZJIGYBXKT7GPJ4kzTS7YBanR8 VybiAv HlttqLNcNK10LYh2BIS1dQtsUU pvhX0teSZnT0f0KuAgSE78bT13 FGenAGCmHtZ3BvHhcthffTBy H6koLnAtoOAgHat+PHRhYmxlIH zsBYHwNIgcDYLlQzGrkYvgTC3k Dp6mENPlNPHczJnuvYXkHhDb d5gbDSDpCGinDV6iaWvkA4GckG A3UHAiy1a3Vc11kRF+PHRkIHN0 qFzsVEvxi303CjMhb4ozTKK9 jFCmXRhbGON0N75vw7D1YWVyTM PwTNO8mSI9fP0muJgxbymnK8Zh kKMvGbB1RNF0jUAxvK8miLrb fklqiG7iEck+Z19NLP9CIZMFLG 4YErk0G9EeZzexrAH+BU40NUKc TY63bZPowENpp0hqmMf9UyUo MJQlZWD6cRkqNSqcz4WmKFBxV1 8fxHTbx3J0YSYkzGdxxAGhXjZk cNH8vC6cFVroxohxz7ixeylh Kuddb7cuob20tV19C59pYOauGB IgMXY8ZSKsCGCkxYwngk1qcN5y Ii8+COlur8oxg7uxbTn6HvWd KUXaglMrkChfPWU6w9UuZg44S4 ZlwIblb9IyCpp0hq16iQZxw5R7 sZL7HXokRYFzcU0tYEqmIyO6 MWRgMhUcgL47nHIcBAqiYu5eqQ vxxUzxZB8vOHHbxrxfSIVzxK9g ZHTeoNRvfJrgFU3qDXOzsfll p683JhYpCKO3INQvuQAoJ3CheH 4nAdLuQOTvRVVwI4IycQLuCYcy F746JYqnDsM1TSNokbFmO9Di VADgqKmcEmY0g2K6Db0Uq3Yqfo xqMFV3EEidLROeKsP0MoEvQpN7 L7IgZon7POQdsKanED8rF4Df TREfbvvzugppkZN1MKHvKARcnH 35kBKxTXpcCx3ht9H7d846KPAt KWIxoN99Vt5xhLyzJBVdlQXW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 high 160-189 mg/dL, High >189 mg/dL, Very high Secondary prevention optimal LDL Cholesterol levels are recommended to be < 70 mg/dL Performed By: #### L IPB, 90795-0 ####AMHERSChristian [facility] [id number] [place] [address] [facility] Cholesterol in LDL/Cholesterol in HDL [Mass ratio] 4.73 {ratio} High <2.54 [facility] Comment on above: Order Comment: Tessa sandra Type: BLOOD SPECIMENOrdering Facility: [facility] Address: [address] [place] [address] Result Comment: Doris tucker: 1. National Cholesterol Education Program ATP III Guideline At-A-Glance Quick Desk Reference: National Heart, Lung, and Blood [place]. National Institutes of Health. 2001: NIH Publication No. 01-3305. 2. An International Atherosclerosis Society position paper: global recommendations for the management of dyslipidemia: executive summary, Atherosclerosis. 2014: 232(2):410-413. Performed By: #### Natalie DENT, 59096-3 ####[facility] [id number] [place] [address] [place] Cholesterol in VLDL [Mass/Vol] 28 mg/dL Normal <30 [facility] Comment on above: Order Comment: Speci men Type: BLOOD SPECIMENOrdering Facility: [facility] Address: [address] [place] [address] Performed By: #### Natalie DENT, 76150-6 ####[facility] LABIA [id number] [place] [id number] [place] Cholesterol non HDL [Mass/Vol] 203 mg/dL High <130 [facility] Comment on above: Order Comment: Speci men Type: BLOOD SPECIMENOrdering Facility: [facility] Address: [address] [place] [address] Result Comment: <130 mg/dL, Optimal 130-159 mg/dL, Near optimal/above optimal 160-189 mg/dL, Borderline high 190-219 mg/dL, High >219 mg/dL, Very high Secondary prevention optimal non HDL Cholesterol levels are recommended to be <100 mg/dL Performed By: #### L FILIPE, 22419-8 ####[facility] [id number] [place] [address] [place] Cholesterol.total/Ch olesterol in HDL [Mass ratio] 6.49 {ratio} High <5.10 [facility] Comment on above: Order Comment: Speci men Type: BLOOD SPECIMENOrdering Facility: [facility] Address: [address] [place] [address] Performed By: #### L FILIPE, 41503-2 ####[facility] [id number] [place] [id number] [facility] FASTING TIME 12. hrs Normal [facility] Comment on above: Order Comment: Speci men Type: BLOOD SPECIMENOrdering Facility: [facility] Address: [address] [place] [address] Performed By: #### L IPB, 89596-6 ####[facility] [id number] [place] [address] [place] [facility] Triglyceride [Mass/Vol] 140 mg/dL Normal <150 [facility] Comment on above: Order Comment: Speci men Type: BLOOD SPECIMENOrdering Facility: [facility] Address: [address] [place], [place] [address] Result Comment: <150 mg/dL, Normal 150-199 mg/dL, Borderline high 200-499 mg/dL, High >499 mg/dL, Very high Performed By: #### L IPB, 16847-8 ####[facility]ICChristian [facility] [id number] [place] [address] [place] PSA/PROSTSPECAG SCRNon 07-29 Prostate specific Ag [Mass/Vol] 0.41 ng/mL Normal <2.60 [facility] Comment on above: Order Comment: Speci men Type: BLOOD SPECIMENOrdering Facility: [facility] Address: [address] [place] [address] Result Comment: Tota l PSA test methodology used is the Electrochemiluminescence Immunoassay by [employer]. Total PSA values by differing methodologies cannot be interchanged. Performed By: #### P SAS1 ####[facility] [id number] [place] [address] [place] TSH SerPl-aCncon 07-29-2021 TSH Qn 4.060 m[IU]/L Normal 0.270-4.20 0 [facility] Comment on above: Order Comment: Speci men Type: BLOOD SPECIMENOrdering Facility: [facility] Address: [address] [place], [place] [address] Performed By: #### 3 016-3 ####[facility] [id number] [place] [address] [place] URINALYSIS, REFLEX MICROSCOP ICon 07-29-2021 Bilirubin Ql (U) Negative Normal Negative [facility] Comment on above: Order Comment: Speci men Type: URINE SPECIMEN [facility]ing Facility[facility] Address: [address] [place] [address] Performed By: #### L [id number] #### [place] [facility] CLIA [id number] [address] [place] [address] [place] Clarity (Unsp spec) Clear Normal Clear [facility] Comment on above: Order Comment: Speci men Type: URINE SPECIMEN [facility] Address: [address] [place] [address] Performed By: #### L [id number] #### [place] [facility] CLIA [id number] [address] [place] [address] [place] Color (U) Yellow Normal Yellow [facility] Comment on above: Order Comment: Speci men Type: URINE SPECIMEN [facility]: [facility] Address: [address] [place] [address] Performed By: #### L [id number] #### [place] [facility] CLIA [id number] [address] [place] [address] [place] Glucose Test strip (U) [Mass/Vol] Negative Normal Negative [facility] Comment on above: Order Comment: Speci men Type: URINE SPECIMEN [facility] Address: [address] [place] [address] Performed By: #### L [id number] #### [place] [facility] CLIA [id number] [address] [place] [address] [place] Hemoglobin Ql (U) Negative Normal Negative [facility] Comment on above: Order Comment: Speci men Type: URINE SPECIMEN [facility]ing [facility] Address: [address] [place] [address] Performed By: #### L [id number] #### [place] [facility] CLIA [id number] [address] [place] [address] [place] Ketones Ql (U) Negative Normal Negative [facility] Comment on above: Order Comment: Speci men Type: URINE SPECIMEN [facility]ing [facility] Address: [address] [place] [address] Performed By: #### L [id number] #### [place] [facility] CLIA [id number] [address] [place] [address] [place] [facility] Leukocyte esterase Test strip Ql (U) Negative Normal Negative [facility] Comment on above: Order Comment: Speci men Type: URINE SPECIMEN [facility]ing [facility]: [facility] Address: [address] [place] [address] Performed By: #### L [id number] #### [place] [facility] CLIA [id number] [address] [place] [address] [place] Nitrite Ql (U) Negative Normal Negative [facility] Comment on above: Order Comment: Speci men Type: URINE SPECIMEN [facility]ing [facility]: [facility] Address: [address] [place] [address] Performed By: #### L [id number] #### [place] [facility] CLIA [id number] [address] [place] [address] [place] pH (U) 5.5 [pH] Normal 5.0-8.0 [facility] Comment on above: Order Comment: Speci men Type: URINE SPECIMEN [facility] Address: [address] [place] [address] Performed By: #### L [id number] #### [place] [facility] CLIA [id number] [address] [place] [address] [place] Protein (U) [Mass/Vol] Negative Normal Negative [facility] Comment on above: Order Comment: Speci men Type: URINE SPECIMEN [facility] Address: [address] [place] [address] Performed By: #### L [id number] #### [place] [facility] CLIA [id number] [address] [place] [address] [place] Specific gravity (U) [Rel density] 1.025 Normal 1.005-1.03 0 [facility] Comment on above: Order Comment: Speci men Type: URINE SPECIMEN [facility]: [facility] Address: [address] [place] [address] Performed By: #### L [id number] #### [facility] CLIA [id number] [address] [place] [address] Urobilinogen Ql (U) 0.2 EU/dL Normal 0.2-1.0 EU/dL [facility] Comment on above: Order Comment: Speci men Type: URINE SPECIMEN [facility]: [facility] Address: [address] [place] [address] Performed By: #### L [id number] #### [facility] CLIA [id number] [address] [place] [address] OF [facility] VITAMIN D 25 HYDROXYon 07-29 25-hydroxyvitamin D3 [Mass/Vol] 29.1 ng/mL Low 31.0-80.0 [facility] Comment on above: Order Comment: Speci men Type: BLOOD SPECIMENOrdering Facility: [facility] Address: [address] [place] [address] Result Comment: Clas sification of 25 [place] Vitamin D status: Deficiency/Insufficiency: < or = 30 ng/ml. Sufficiency/Optimal Levels: 31-80 ng/mL Toxicity: > 100 ng/mL. Test performed by chemiluminescent immunoassay. Performed By: #### V ITD ####[facility] [id number] [address] [place] HISTORY PHYSICALon HISTORY PHYSICAL HNO ID: [id number] Author: Prisca Van PA-C Service: ? Author Type: Physician Application Support Developer Type: HANDP Filed: 07/26/2021 1:52 PM Note Text: [facility] This is a virtual visit. It required patient-provider interaction for the medical decision making as documented below. Patient has been identified by name and date of : Yes Reason for call: PACC visit Accompanied by: Self Patient name: Nehal Baig Scheduled Surgery: colonoscopy 07/31/2021 at [place] CHIEF COMPLAINT: Patient presents with: Outpatient Colonoscopy [...] fevers. Neuro: No history of TIA's, stroke, FIELD ATTENDANT tumor, impaired sensorium, hemiplegia, paraplegia or quadraplegia. No neurological symptoms or problems. Respiratory: No history of current cough or dyspnea, or pneumonia in the past 6 weeks. +asthma-uses Flovent daily, albuterol 3-5 times/week +JACOBY- BiPAP nightly +lung nodules Cardiovascular: No history of angina, CHF, PA, cardiac surgery or stents. Denies rest pain, [...] carotid puls (more content not included)... Normal [facility] CNOVon 07-25-2021 CNOV Office Visit ([facility] ) -- NEHAL BAIG ([id number]) 1970 M Date Time Provider Department 07/25/21 9:20 AM SALOME AGUILLONPRMICHAELA During your visit today, we recorded the following information about you: Pulse Blood pressure Weight Height 88/minute 136/78 182.3 kg 1.854 m Salome Aguillon APRN.BOOM STICK WORKER 07/25/2021 5:32 PM Signed This note was created using Mobspire[employer]. Subjective Nehal Baig is a 50 year [...] further at follow-up Salome Aguillon APRN.LEODAN Aguillon APRN.BOOM STICK WORKER 07/25/2021 9:43 AM Signed Bowel Preparation Instructions for: Golytely, Nulytely, Trilyte or Coly (more content not included)... [facility] NEHAL BAIG ([id number]) 1970 M Date Time Provider Department 07/25/21 SALOME AGUILLON [facility] During your visit today, we recorded the following information about you: Beatriz Cowan 07/25/2021 11:22 AM Signed [facility] states the Golytely is on backorder. They have the Newlytely in stock. Is it OK to substitute? Please advise. [phone]. Beatriz Cowan July 25, 2021 11:22 AM Salome Aguillon APRN.BOOM STICK WORKER 07/25/2021 12:05 PM Signed Kj Cruz -pt did not schedule colonoscopy yet -should [...] Date Reviewed: 07/25/2021 Reviewed by: Salome Aguillon APRN.BOOM STICK WORKER - Fully Assessed Reason for Visit: Medication [...] Status:Closed by SALOME AGUILLON on 07/25/21 Normal [facility] CT CHEST WO IVCONon 15-20 21 Radiology Result ACTIONABLE Abnormal [facility] Basic Metab w/rfx MGon 08-02 (cont.) Normal [facility] Comment on above: Result Comment: Aver age GFR for 40-49 years old: 99 mL/min/1.73sq m Chronic Kidney Disease: <60 mL/min/1.73sq m Kidney failure: <15 mL/min/1.73sq m eGFR calculated using average adult body mass. Additional eGFR calculator available at: http://www.[employer]istic/multiple_crcl_2012.htm Performed By: #### C AXEL, BMPX ####[facility] [address] [place] [address] Lab Director: Nate Stafford MD Anion gap [Moles/Vol] 11 mmol/L Normal 9-17 [facility] Comment on above: Performed By: #### C BC, BMPX ####[facility] [address] [place], [place] [phone] Director: Nate Stafford MD Calcium [Mass/Vol] 8.5 mg/dL Low 8.6-10.4 [facility] Comment on above: Performed By: #### C BC, BMPX ####[facility] [address] [place], [place] [phone] Director: Nate Stafford MD Chloride [Moles/Vol] 101 mmol/L Normal 98-107 [facility] Comment on above: Performed By: #### C BC, BMPX ####[facility] [address] [place], [place] [phone] Director: Nate Stafford MD CO2 [Moles/Vol] 23 mmol/L Normal 20-31 [facility] Comment on above: Performed By: #### C BC, BMPX ####[facility] [address]is[address] [place] [address] Lab Director: Nate Stafford MD Creatinine [Mass/Vol] 0.62 mg/dL Low 0.70-1.20 [facility] Comment on above: Performed By: #### C BC, BMPX ####[facility] [address] [place] [address] Lab Director: Nate Stafford MD GFR, Amer >60 Normal >60 [facility] Comment on above: Performed By: #### C BC, BMPX ####[facility] [address] [place], [place] [phone] Director: Nate Stafford MD GFR,non Amer >60 Normal >60 [facility] Comment on above: Performed By: #### C BC, BMPX ####[facility] [address] [place], [place] [phone] Director: Nate Stafford MD Glucose [Mass/Vol] 120 mg/dL High 70-99 [facility] Comment on above: Performed By: #### C BC, BMPX ####[facility] [address] [place], [place] [phone] Director: Nate Stafford MD Potassium [Moles/Vol] 4.3 mmol/L Normal 3.7-5.3 [facility] Comment on above: Performed By: #### C BC, BMPX ####[facility] [address] [place], [place] [phone] Director: Nate Stafford MD Sodium [Moles/Vol] 135 mmol/L Normal 135-144 [facility] Comment on above: Performed By: #### C BC, BMPX ####[facility] [address] [place], [place] 0857[address] Lab Director: Nate Stafford MD Urea nitrogen [Mass/Vol] 14 mg/dL Normal 6-20 [facility] Comment on above: Performed By: #### C BC, BMPX ####[facility] [address] [place] [address] Lab Director: Nate Stafford MD BUN/CRE Ratio NOT REPORTED Normal -20 [facility] Comment on above: Performed By: #### C BC, BMPX ####[facility] [address] [place] [address] Lab Director: Nate Stafford MD Staging: NOT REPORTED Normal [facility] Comment on above: Performed By: #### C BC, BMPX ####[facility] [address] [place], [place] [phone] lab Director: Nate Stafford MD Basic Metabolic Panel w/ Ref johnny to MGOrdered By: Halina Pathak on 08-02-2020 Anion gap [Moles/Vol] 11 mmol/L 9 - 17 mmol/L [employer] Phone: Calcium [Mass/Vol] 8.5 mg/dL Low 8.6 - 10. 4 mg/dL [employer] Phone: Chloride [Moles/Vol] 101 mmol/L 98 - 10 7 mmol/L [employer] Phone: CO2 [Moles/Vol] 23 mmol/L 20 - 31 mmol/L [employer] Phone: Creatinine [Mass/Vol] 0.62 mg/dL Low 0.70 - 1.20 mg/dL [employer] Phone: GFR >60 >60 mL/min Infratel Phone: GFR Non- >60 >60 mL/min [employer] Phone: GFR/1.73 sq M.predicted MDRD (S/P/Bld) [Vol rate/Area] [employer] Phone: Comment on above: Average GFR for 40-4 9 years old: 99 mL/min/1.73sq m Chronic Kidney Disease: <60 mL/min/1.73sq m Kidney failure: <15 mL/min/1.73sq m eGFR calculated using average adult body mass. Additional eGFR calculator available at: http://www.[employer]istic/multiple_crcl_2012.htm GFR/1.73 sq M.predicted MDRD (S/P/Bld) [Vol rate/Area] NOT REPORTED [employer] Phone: Glucose [Mass/Vol] 120 mg/dL High 70 - 99 mg/dL [employer] Phone: Interpretation and review of laboratory results Abnormal [employer] Phone: Potassium [Moles/Vol] 4.3 mmol/L 3.7 - 5.3 mmol/L [employer] Phone: Sodium [Moles/Vol] 135 mmol/L 135 - 144 mmol/L [employer] Phone: Urea nitrogen (BldV) [Mass/Vol] 14 mg/dL 6 - 20 mg/dL [employer] Phone: Urea nitrogen/Creatinine (Bld) [Mass ratio] NOT REPORTED [employer] Phone: CBCon 08-02-2020 Erythrocyte distribution width (RBC) [Ratio] 13.0 % Normal 11.8-14.4 [facility] Comment on above: Performed By: #### C BC BMPX ####[facility] [address] [place], [place] [phone] lab Director: Nate Stafford MD Hematocrit (Bld) [Volume fraction] 41.8 % Normal 40.7-50.3 [facility] Comment on above: Performed By: #### C AXEL BMPX ####[facility] [address] [place] [address] Lab Director: Nate Stafford MD Hemoglobin (Bld) [Mass/Vol] 13.8 g/dL Normal 13.0-17.0 [facility] Comment on above: Performed By: #### C BC, BMPX ####[facility] [address] [place], [place] [phone] Director: Nate Stafford MD MCH (RBC) [Entitic mass] 29.3 pg Normal 25.2-33.5 [facility] Comment on above: Performed By: #### C BC, BMPX ####[facility] [address] [place] [address] Lab Director: Nate Stafford MD MCHC (RBC) [Mass/Vol] 33.0 g/dL Normal 28.4-34.8 [facility] Comment on above: Performed By: #### C BC, BMPX ####[facility] [address] [place] [address] [phone] Director: Nate Stafford MD MCV (RBC) [Entitic vol] 88.7 fL Normal 82.6-102.9 [facility] Comment on above: Performed By: #### C BC, BMPX ####[facility] [address] [place] [address] Lab Director: Nate Stafford MD NRBC Automated 0.0 per 100 WBC Normal 0.0 [facility] Comment on above: Performed By: #### C BC, BMPX ####[facility] [address] [place], [place] [phone] Director: Nate Stafford MD Platelet mean volume (Bld) [Entitic vol] 10.9 fL Normal 8.1-13.5 [facility] Comment on above: Performed By: #### C BC, BMPX ####[facility] [address] [place] [address] Lab Director: Nate Stafford MD Platelets (Bld) [#/Vol] 221 10*3/uL Normal 138-453 [facility] Comment on above: Performed By: #### C BC, BMPX ####[facility] [address] [place] [address] lab Director: Nate Stafford MD RBC (Bld) [#/Vol] 4.71 10*6/uL Normal 4.21-5.77 [facility] Comment on above: Performed By: #### C BC, BMPX ####[facility] [address] [place] [address] lab Director: Nate Stafford MD WBC (Bld) [#/Vol] 10.6 10*3/uL Normal 3.5-11.3 [facility] Comment on above: Performed By: #### C BC, BMPX ####[facility] [address] [place] [address] Lab Director: Nate Stafford MD CBCOrdered By: Halina Pathak on 08-02-2020 Hematocrit (Bld) [Volume fraction] 41.8 % 40.7 - 50.3 % [employer] Phone: Hemoglobin.gastroint estinal spec 1 Ql (Stl) 13.8 g/dL 13.0 - 17.0 g/dL [employer] Phone: MCH (RBC) [Entitic mass] 29.3 pg 25.2 - 33.5 pg [employer] Phone: MCHC (RBC) [Mass/Vol] 33.0 g/dL 28.4 - 34.8 g/dL [employer] Phone: MCV (RBC) [Entitic vol] 88.7 fL 82.6 - 102.9 fL [employer] Phone: NRBC Automated 0.0 0.0 per 100 WBC [employer] Phone: Platelet distribution width (Bld) [Ratio] 13.0 % 11.8 - 14.4 % [employer] Phone: Platelet mean volume (Bld) [Entitic vol] 10.9 fL 8.1 - 13.5 fL [employer] Phone: Platelets (Bld) [#/Vol] 221 10*3/uL [employer] Phone: RBC (Bld) [#/Vol] 4.71 10*6/uL 4.21 - 5.77 m/uL [employer] Phone: WBC (Bld) [#/Vol] 10.6 10*3/uL [employer] Phone: Trauma Profileon 08-02-2020 (cont.) Normal [facility] Comment on above: Result Comment: Aver age GFR for 40-49 years old: 99 mL/min/1.73sq m Chronic Kidney Disease: <60 mL/min/1.73sq m Kidney failure: <15 mL/min/1.73sq m eGFR calculated using average adult body mass. Additional eGFR calculator available at: http://www.Sportistic/multiple_crcl_2012.htm Performed By: #### E RTPF, TROPI ####[facility] [address] [place] [address] Lab Director: Nate Stafford MD Anion gap [Moles/Vol] 10 mmol/L Normal 9-17 [facility] Comment on above: Performed By: #### E RTPF, TROPI ####[facility] [address] [place] [address] Lab Director: Nate Stafford MD Chloride [Moles/Vol] 100 mmol/L Normal 98-107 [facility] Comment on above: Performed By: #### E RTPF, TROPI ####[facility] [address] [place] [address] Lab Director: Nate Stafford MD CO2 [Moles/Vol] 24 mmol/L Normal 20-31 [facility] Comment on above: Performed By: #### E RTPF, TROPI ####[facility] [address] [place] [address] Lab Director: Nate Stafford MD Creatinine [Mass/Vol] 0.71 mg/dL Normal 0.70-1.20 [facility] Comment on above: Performed By: #### E RTPF, TROPI ####[facility] [address] [place], [place] [phone] Director: Nate Stafford MD Ethanol [Mass/Vol] mg/dL Normal <10 [facility] Comment on above: Performed By: #### E RTPF, TROPI ####[facility] [address] [place] [address])[phone] Director: Nate Stafford MD Ethanol percent <0.010 Normal <0.010 [facility] Comment on above: Performed By: #### E RTPF, TROPI ####[facility] [address] [place], [place] [phone] Director: Ntae Stafford MD GFR, Amer >60 Normal >60 [facility] Comment on above: Performed By: #### E RTPF, TROPI ####[facility] [address]frxp[address] [place], [place] [phone] Director: Nate Stafford MD GFR,non Amer >60 Normal >60 [facility] Comment on above: Performed By: #### E RTPF, TROPI ####[facility] [address] [place], [place] [phone] Director: Nate Stafford MD Glucose [Mass/Vol] 109 mg/dL High 70-99 [facility] Comment on above: Performed By: #### E RTPF, TROPI ####[facility] [address] [place], [place] [phone] Director: Nate Stafford MD Potassium [Moles/Vol] 4.2 mmol/L Normal 3.7-5.3 [facility] Comment on above: Performed By: #### E RTPF, TROPI ####[facility] [address] [place], [place] [phone] Director: Naet Stafford MD Sodium [Moles/Vol] 134 mmol/L Low 135-144 [facility] Comment on above: Performed By: #### E RTPAlanna TROPI ####[facility] [address] [place] [address] Lab Director: Nate Stafford MD Urea nitrogen [Mass/Vol] 15 mg/dL Normal 6-20 [facility] Comment on above: Performed By: #### E RTPF TROPI ####[facility] [id number] [place], [place] [id number])[phone] Director: Nate Stafford MD Troponinon 08-02-2020 Troponin, High Sens 6 ng/L Normal 0-22 [facility] Comment on above: Result Comment: High Sensitivity Troponin values cannot be compared with other Troponin methodologies. Patients with high levels of Biotin oral intake (i.e >5mg/day) may have falsely decreased Troponin levels. Samples collected within 8 hours of biotin intake may require additional information for diagnosis. Performed By: #### E RTPF, TROPI ####[facility] [address] [place], [place] [id number])[phone] Director: Nate Stafford MD Type + Screenon 08-02-2020 Type + Screen Sample Expiration 08/04/2020,2359 Arm Band Number BE [id number] ABO/Rh(D) A NEGATIVE Antibody Screen NEGATIVE Normal [facility] Comment on above: Performed By: #### T YS ####[facility] [address] [place] [address] lab Director: Nate Stafford MD CT CERVICAL [...] Johnny Smalls MD 08/01/20 Final result Normal [facility] CT CERVICAL SPINE WO CONTRAS TOrdered By: Ronnie Lund on 08-01-2020 C6-7 cervical spondy losis and degenerative disc disease. Evidence of paracervical spasm. No acute bony abnormalities are noted [employer] Work Phone: EXAMINATION: CT OF T HE [...] intact. The visualized lung apices are clear. [employer] Work Phone: Francisco, pn Incoming R adiant Results From [employer] - 08/01/2020 7:04 PM EDT EXAMINATION: CT [...] spasm. No acute bony abnormalities are noted [employer] Phone: CT CHEST ABDOMEN PELVIS W CO [...] Elizabeth Shoemaker MD 08/01/20 Final result Normal [facility] CT CHEST ABDOMEN PELVIS W CO NTRASTOrdered [...] to Lung-RADS guidelines. Reference: Radiology. 2017; 284(1):228-43. [employer] Phone: EXAMINATION: CT OF T HE CHEST, [...] hernia. Bones/Soft Tissues: No acute osseous abnormality. [employer] Work Phone: [place], Mhpn Incoming R adiant Results From [employer] - 08/01/2020 7:19 PM EDT EXAMINATION: CT [...] to Lung-RADS guidelines. Reference: Radiology. 2017; 284(1):228-43. [employer] Phone: CT HEAD WO CONTRASTon 2020 CT [...] Jarek Fernández MD 08/01/20 Final result Normal [facility] CT Head WO ContrastOrdered B y: Ronnie Lund on 08-01-2020 1. No acute intracra nial abnormality. [employer] Phone: EXAMINATION: CT OF T HE HEAD [...] clear. SOFT TISSUES/SKULL: The calvarium is intact. [employer] Phone: Francisco, Mhpn Incoming R adiant Results From [employer] - 08/01/2020 7:01 PM EDT EXAMINATION: CT [...] intact. IMPRESSION: 1. No acute intracranial abnormality. [employer] Phone: CT LUMBAR SPINE TRAUMA RECON STRUCTIONon [...] Johnny Smalls MD 08/01/20 Final result Normal [facility] CT THORACIC SPINE TRAUMA REC ONSTRUCTIONon 08-01-2020 [...] Johnny Smalls MD 08/01/20 Final result Normal [facility] Drug Scr, Abuse, Uron 2020 Amphetamine(s),Ur Negative Normal NEG [facility] Comment on above: Result Comment: (Positive cutoff 1000 ng/mL) Performed By: #### U AMIC, LOUIS #### [facility] [employer] [address] [place] [address] Boil Off Worker: Nate Stafford MD Barbiturate(s),Ur Negative Normal NEG [facility] Comment on above: Result Comment: (Positive cutoff 200 ng/mL) Performed By: #### U AMIC, LOUIS #### [facility] [employer] [address] [place] [address] Boil Off Worker: Nate Stafford MD Benzodiazepine(s) Negative Normal NEG [facility] Comment on above: Result Comment: (Positive cutoff 200 ng/mL) Performed By: #### U AMIC, LOUIS #### [facility] [address] [place] [address] Boil Off Worker: Nate Stafford MD Cannabinoid(s),Ur Negative Normal NEG [facility] Comment on above: Result Comment: (Positive cutoff 50 ng/mL) Performed By: #### U AMIC, LOUIS #### [facility] [address] [place] [address] Boil Off Worker: Nate Stafford MD Cocaine Metabolite Negative Normal NEG [facility] Comment on above: Result Comment: (Positive cutoff 300 ng/mL) Performed By: #### U AMIC, LOUIS #### [facility] [address] [address] Boil Off Worker: Nate Stafford MD Interpretive Info Assay provides medic al screening only. The absence of expected drug(s) and/or Normal [facility] Comment on above: Result Comment: meta bolite(s) may indicate diluted or adulterated urine, limitations of testing or timing of collection. Testing for legal purposes should be confirmed by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
--- NOTE | 2023-05-23 07:53 | PM.CN ---
Consult Note: HPI Data of Consult Patient: known to practice within the last 3 years Consult date: 01/28/23 Requesting Physician: Miya Batista NP Primary Care Provider: YOUNG WHEAT Consult Narrative Reason for consult: low back pain Narrative: 52yom who presents for evaluation. worsening low back pain, ongoing for months. no relief with otc pain medications. has engaged in >6 weeks of provider directed home exercises, with no benefit. lumbar xr shows significant facet arthropathy in lower lumbar spine. denies adverse med side effects. Patient reporting pain in low back 0/10. Patient underwent bilateral L4-5 L5-S1 facet medial branch thermal RFA with >90% improvement in pain and functional ability. Patient is now interested in talking about chronic neck pain, today pain 5/10 increases to 10/10 pain increased with all movement, twisting, lifting. Is taking motrin 800mg TID with mild benefiit, no relief from leftover tramadol. Patient denies numbness/tingling/weakness in BUE. Following with Dr Barragan for left shoulder pain/edema, hx of shoulder surgery. cc:: CC: Miya Batista NP Review of Systems ROS Status of ROS 10 or more systems reviewed and unremarkable except as noted in history and below Musculoskeletal Reports: back pain, neck pain and joint pain [facility] Medical History (Updated 05/23/23 @ 08:28 by Miya Batista NP) Foot pain ?M79.673 - Pain in unspecified foot (ICD-10) Ankle pain ?M25.579 - Pain in unspecified ankle and joints of unspecified foot (ICD-10) Achilles tendinitis ?M76.60 - Achilles tendinitis, unspecified leg (ICD-10) Plantar fascial fibromatosis ?M72.2 - Plantar fascial fibromatosis (ICD-10) Migraine ?G43.909 - Migraine, unspecified, not intractable, without status migrainosus (ICD-10) GERD (gastroesophageal reflux disease) ?K21.9 - Gastro-esophageal reflux disease without esophagitis (ICD-10) Heartburn ?R12 - Heartburn (ICD-10) High cholesterol ?E78.00 - Pure hypercholesterolemia, unspecified (ICD-10) Calcaneal spur ?M77.30 - Calcaneal spur, unspecified foot (ICD-10) Strain of Achilles tendon ?S86.019A - Strain of unspecified Achilles tendon, initial encounter (ICD-10) Low back pain ?M54.50 - Low back pain, unspecified (ICD-10) Kidney stones ?N20.0 - Calculus of kidney (ICD-10) Sleep apnea ?G47.30 - Sleep apnea, unspecified (ICD-10) Hypertension ?I10 - Essential (primary) hypertension (ICD-10) Surgical History History of colonoscopy ?Z98.890 - Other specified postprocedural states (ICD-10) History of foot surgery ?Z98.890 - Other specified postprocedural states (ICD-10) H/O vasectomy (2013) ?Z98.52 - Vasectomy status (ICD-10) H/O shoulder replacement ?Z96.619 - Presence of unspecified artificial shoulder joint (ICD-10) History of carpal tunnel release ?Z98.890 - Other specified postprocedural states (ICD-10) Family History Other Family history of lung cancer Social History Within the past year, how often did you have a drink containing alcohol: monthly or less Smoking status: Never smoker Non-prescribed substance use: denies use 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 Highest level of school completed/degree received: high school graduate Meds Home Medications and Allergies Home Medications Medication Instructions Recorded Confirmed Type acetaminophen 500 mg capsule 1,000 mg PO .Q12 PRN pain 01/28/23 04/22/23 History ibuprofen 200 mg tablet (I-Prin) 800 mg PO Q12H 01/28/23 04/22/23 History lisinopril 10 mg tablet 10 mg PO DAILY 01/28/23 04/22/23 History omeprazole 20 mg capsule,delayed 20 mg PO DAILY 01/28/23 04/22/23 History release aspirin 81 mg tablet,delayed 81 mg PO DAILY 02/24/23 04/22/23 History release (Adult Aspirin Regimen) cholecalciferol (vitamin D3) 25 2,000 unit PO DAILY 02/24/23 04/22/23 History mcg (1,000 unit) chewable tablet ([employer] Daily D) cyanocobalamin (vitamin B-12) 500 500 mcg PO DAILY 02/24/23 04/22/23 History mcg tablet (B-12 DOTS) magnesium 250 mg tablet 500 mg PO DAILY 03/04/23 04/22/23 History aspirin 81 mg tablet,delayed 81 mg PO BID 30 days #60 tabs 03/11/23 04/22/23 Rx release (Adult Low Dose Aspirin) oxycodone-acetaminophen 5 mg-325 1 tab PO Q6H PRN pain 7 days #28 03/11/23 04/22/23 Rx mg tablet (Percocet) tabs tizanidine 2 mg tablet 2 mg PO TID PRN muscle spasticity 03/11/23 04/22/23 Rx 7 days #21 tabs Allergies Allergy/AdvReac Type Severity Reaction Status Date / Time No Known Drug Allergies Allergy Verified 04/22/23 08:18 Exam Constitutional Documenting provider has reviewed patient's vital signs: yes Common normals: no apparent distress, oriented x3, healthy appearing, alert and well nourished General appearance: cooperative HENMT Common normals: normocephalic, hearing grossly normal bilaterally and moist oral mucous membranes Head and scalp: normocephalic Eye Common normals: PERRL Pupil: PERRL Neck & C-Spine Common normals: full ROM General: normal visual inspection Cervical spine: pain with cervical ROM and paracervical muscle tenderness Other: positive facet loading negative spurlings, sensation intact BUE Neck images: 1. Chest Common normals: inspection of chest normal Respiratory Common normals: normal respiratory effort, no retractions and no use of accessory muscles Back & Pelvis Lumbar spine/lower back: normal to inspection and lumbar ROM normal Other: negative facet loading Extremity Left upper extremity: shoulder joint (pain in AC joint..) Other: severe edema to left shoulder, pain over rotator cuff. edema to shoulder and arm. strength 4/5. pain over AC joint Neuro Common normals: oriented x3, CN's II-XII intact bilaterally, moves all extremities, no focal motor deficits, no sensory deficits noted, deep tendon reflexes 2+ bilaterally and gait normal Sensorium/orientation: alert Motor exam: no movement abnormalities noted Psych Common normals: mental status grossly normal, thought process normal, cooperative, affect normal, speech normal and activity/motor behavior normal Speech: normal speech Thought process: normal thought process Results Additional Findings Additional findings: I have checked an OARRS report on this patient today and there are no aberrancies noted in the prescribing history.?? A drug screen was completed and reviewed within the last year, and if there has not been a drug screen completed we ordered one today to monitor higher risk, state monitored pain medication use. As part of providing excellent, safe, comprehensive care, the following was completed at our patient's visit: 1. A medication reconciliation and review to ensure accurate knowledge of current/active medications, including asking our patients to inform us about any sidi-dro-ankuxsi medications or herbal remedies/nutritional supplements/alternative remedies. 2. A review to specifically ensure our patients have had annual screening for: elevated body mass index (BMI), tobacco use, screening for depression, and screening for unhealthy alcohol use. When screening is concerning, patients are provided with education and the specific recommendation to discuss the concerning health issue and treatment options with their primary care provider. Assessment and Plan Assessment and Plan (1) Lumbar spondylosis: (2) Myofascial pain: (3) Cervical spondylosis: (4) Left shoulder pain: Plan -bilateral L4-5 L5-S1 thermal RFA >90% ongoing relief -update cervical xray per pt request, increase in neck pain in the last month. hx of chronic neck pain >3 months unresponsive to PT and conservative medications. Previous imaging consistent with DDD and cervical spondylosis -start baclofen 10mg BID PRN -continue current medications -continue f/u with [facility] and Dr Barragan for left shoulder pain -f/u 1 month, consider bilateral C4-5 C5-6 facet medial branch block x2 working towards RFA
== END 2023-05-23 07:48 | disposition home or self-care (01) ==
LOC: PM 07:48
PROVIDERS: PCP Nurse Practitioner; Visit Provider Nurse Practitioner
DX: M47.816 Spondylosis without myelopathy or radiculopathy, lumbar region (principal); M79.18 Myalgia, other site; M47.812 Spondylosis without myelopathy or radiculopathy, cervical region; M25.512 Pain in left shoulder
CPT/HCPCS: G0463

== ENCOUNTER 2023-05-26 14:19 | Outpatient (OUT) | payer BC, SELFPAY ==
--- NOTE | 2023-05-26 | XR_ITS ---
The [address] [address] Patient Name: NEHAL BAIG MRN: [id number] date: 1970 Sex: M Assigned Patient Location: [facility] Current Patient Location: Accession/Order Number: [id number] Exam Date: 05/26/2023 14:30 Report Date: 05/27/2023 07:09 At the request of: JASON CHOWDHURY Procedure: XR cervical spine w flex/ext EXAMINATION: XR cervical spine w flex/ext HISTORY: CERVICAL SPONDYLOSIS COMPARISON: No relevant comparison available. FINDINGS: BONES: Neutral projection demonstrates loss of normal cervical lordosis. Mild to moderate degenerative spondylosis and facet osteoarthropathy most significant C6-C7 DISC SPACES: Normal. No significant disc height narrowing, subluxation, or endplate abnormality. PARASPINOUS: Negative. No paraspinous abnormality is seen. OTHER: No transient spondylolisthesis with flexion or extension. C6 and C7 are poorly visualized XR/XR cervical spine w flex/ext IMPRESSION: Mild to moderate changes C6-C7 No dynamic instability Electronically authenticated by: KINGSLEY HERRERA Date: 05/27/2023 07:09
--- OUTSIDE RECORDS SUMMARY | 2023-05-26 14:24 | XMS_ITS | CCD ---
Author Name Unknown Address [address] [place] [address] Organization [facility] Care Team Providers Care Housekeeping Supervisor Name Role Phone Pal ANCILLARY SERVICES MANAGER THERAPY - [facility] Primary Care Provide r [facility] Primary Care Unavailable JUANITA CARMONA Consulting Unavailable JUANITA CARMONA Attending Unavailable JUANITA CARMONA Admitting Unavailable [facility] ANCILLARY SERVICES MANAGER THERAPY.[facility] Primary Care Provider [facility] Primary Care Physician UnavailNicolasa Perry Unavailable Unavailable [facility] Primary Care Physician [facility] ANCILLARY SERVICES MANAGER THERAPY.[facility] Primary Care Provider [facility] ANCILLARY SERVICES MANAGER THERAPY.[facility] Primary Care Provider [facility] ANCILLARY SERVICES MANAGER THERAPY.[facility] Primary Care Provider DR KINGSLEY HERRERA V Consulting Unavailable YRN, DR ARROYO Attending Unavailable YRN, DR ARROYO Admitting Unavailable TOSHA, DR JAYY Marte Consulting Unavailable YRN, DR ARROYO Consulting Unavailable [facility] Referring Unavailable [facility] Primary Care Unavailable ANH MENA Attending Unavailab ANH Morales Referring Unavailab le [facility] Primary Care Unavailable [facility] Primary Care Unavailable [facility] Referring Unavailable [facility] Primary Care Unavailable [facility] Attending Unavailable [facility] Referring Unavailable [facility] Primary Care Unavailable [facility] Primary Care Unavailable TREY SHARMA Attending Unavailable TREY SHARMA Referring Unavailable [facility] Attending Unavailable [facility] Primary Care Unavailable [facility] Primary Care Unavailable [facility] Referring Unavailable [facility] Primary Care Unavailable [facility] Attending Unavailable [facility] Referring Unavailable [facility] Primary Care Unavailable [facility] Referring Unavailable [facility] Primary Care Unavailable [facility] Attending Unavailable [facility] Primary Care Unavailable JAYY PATEL Referring Unavailable [facility] Primary Care Unavailable [facility] Attending Unavailable [facility] Primary Care Unavailable ANH MENA Attending Unavailab le [facility] Referring Unavailable ANH MENA Referring Unavailab TARSHA Willson Attending Unavailable [facility] Primary Care Unavailable [facility] Primary Care Unavailable [facility] Referring Unavailable [facility] Primary Care Unavailable [facility] Referring Unavailable BledsoeRishiJoel Natalie Attending Unavailable Bledsoe, Joel L Admitting Unavailable [facility] Primary Care Unavailable [facility] Primary Care Unavailable BledsoeJoel L Attending Unavailable ELENA ADAMS Attending Unavailable ELENA ADAMS Admitting Unavailable [facility] Primary Care Unavailable Joel Bledsoe L Attending Unavailable [facility] Primary Care Unavailable Bledsoe, Joel L Admitting Unavailable Joel Bledsoe L Attending Unavailable [facility] Care Unavailable BledsoeJoel Attending Unavailable Bledsoe, Joel L Admitting Unavailable [facility] Primary Care Unavailable Kelly Yi Unavailable Pal, ISABELLE-C [facility] Primary Care Provider HAIDER Yi Attending Provider HAIDER Quezada Attending Provider HAIDER Guerrero Primary Care Provider [phone] Siri Quezada Unavailable Vonnie Guerrero Primary Care Physician Kandis Amado Unavailable Pal, IT PROJECT LEAD-C [facility] Primary Care Provider HAIDER Yi Attending Provider HAIDER Quezada Attending Provider HAIDER Guerrero Primary Care Provider DO Huan Cowan Attending Provider Katya Harrington Unavailable Unavailable Siri Quezada Admitting Unavailable Siri Quezada Attending Unavailable Shehan, [facility] Unavailabl e Siri Quezada Admitting Unavailable Siri Quezada Attending Unavailable Vonnie Guerrero Primary Care Unavailable Siri Quezada Admitting Unavailable Siri Quezada Attending Unavailable Yolanda, Vonnie Moran Primary Care Unavailable Yung, Huan A Admitting Unavailable Brown, Haun A Attending Unavailable Salome Aguillon [facility] Care Unavailabl e Kassidy, Kelly Admitting [...] Propensity to adverse reactions to drug (disorder) [facility] Repository Medications Current Medications Medication Drug [...] hours. Start: 03-01-2019 [facility] 2 [facility] hours as needed for [...] day(s), # 9 cap(s), Refills(s) 0, Pharmacy: [facility], 185.5, cm, 08/08/21 12:06:00 EDT, Height/Length [...] constipation, # 20 cap(s), Refills(s) 0, Pharmacy: [facility], 185.5, cm, 08/08/21 12:06:00 EDT, Height/Length [...] milk, # 60 tab(s), Refills(s) 0, Pharmacy: [facility], 185.5, cm, 08/08/21 12:06:00 EDT, [...] Daily, # 90 tab(s), Refills(s) 3, Pharmacy: [facility]/pharmacy #[id number], 185.5, cm, 01/09/23 16:37:00 EDT, [...] 03-23-2017 take 1 capsule by mo [facility] once daily Prilosec 20 mg Cap - DR 20 mg, Oral, Daily, Refills(s) 0 Start Date: 03/23/17 Status: Ordered Start: 2016 [facility] 1 capsule [facility] Omeprazole 40 mg capsule Indications: [...] above: Take 1 capsule by mo [facility] once daily. 2 tablet ondansetron [...] Starting Sat08/01/20 at 2358 polyethylene glycol 3350 84880 mg powder for oral solution (1 source) [...] tab(s), Refill(s) 0, 1-2 tab(s) Oral q4hr, [facility], 185.5, cm, 08/08/21 12:06:00 EDT, Height/Length [...] autopap titration study. Please fax results to [phone]. DX: JACOBY G47.33 1 Each 0 11/08/2016 09/13/2020 Discontinued Comment on above: Please perform autop ap titration study. Please fax results to [phone]. DX: JACOBY G47.33 doxepin hydrochloride 10 mg [...] Comment on above: Take 2 tablets [facility] daily with dinner. 1 ml morphine [...] 10 mL injection (DEFINITY) polyethylene glycol 3350 903573 mg / potassium chloride 2970 mg / sodium bicarbonate 6740 mg / sodium chloride 5860 mg / sodium sulfate 20598 mg powder for oral solution (14 sources) [...] obesity with BMI of 50.0-59.9, adult ([facility])] Onset: 11-26-2019 Chronic Other nutritional; endocrine; and metabolic disorders (4 sources) Body mass index (BMI) 50.0-59.9, adult; Translations: [Morbid obesity with BMI of 50.0-59.9, adult ([facility])] Onset: 11-26-2019 Chronic Other nutritional; endocrine; [...] [facility] 52 [facility] Care: History: Any previous diagnosis: HTN, Heel spurs Asthma, Depression, headaches, headaches, migraines, kidney stones, JACOBY History of seeing any specialist: Dr yung quiñones When was your last doctors visit: Last provider: Dr Aguillon Any recent labs: [facility] around 8 months ago Flu: refused Health Maintenance UTD: Colonoscopy: 2021 PSA: unsure if it has ever been checked Acute: Current issues/complaints: Pt has sleep study done and uses machine would like cpap supplies sent to [facility] in [place] pt does wear full mask- Resmed Air Touch F20 machine is Air Curve 10VAuto Needs refill on lisinopril fYI: pt is seeing Neurology referral was sent through [employer]. 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 pt will have them done at [facility] on Saturday. Ordered: Misc Prescription, Full Mask [...] will send order to medical supplies in [place] Ordered: Misc Prescription, Full Mask Resmed Air [...] Daily, # 90 tab(s), Refills(s) 3, Pharmacy: [facility]/pharmacy #[id number], 185.5, cm, 01/09/23 16:37:00 EDT, Height/Length Dosing, 174.3, kg, 01/09/23 16:37:00 EDT, Weight Dosing Follow-up No qualifying data (more content not included)... Normal [facility] Comment on above: Result Comment: Elec tronically Signed By: Vonnie Gardner\.br\Date and Time Signed: 04/30/23 14:06 EST Operative Reporton Operative Report [id number]#1.00TIFF Normal [facility] MR SHOULDER LEFT WO IV CONTR Kyle [...] Not Available Comment on above: Order Comment: [facility] - C9 Approved Patient had Left Shoulder surgery 1 year ago Previous MRI Lab Reportson 03-14-2023 Lab Reports [id number]#1.00TIFF Normal [facility] Lab Miscellaneous-LCon 03-13 Lab Miscellaneous See Ref Report Invalid Interpretation Code [facility] Comment on above: Performed By: #### 1 [id number] #### [facility] [address] [place] [address] Reference Lab Reporton 03-13 Reference Lab Report [id number]#1.00TIFF Normal [facility] Lab Miscellaneous-LCon 03-12 Lab Miscellaneous See Ref Report Invalid Interpretation Code [facility] Comment on above: Result Comment: Perf ormed at: [address] [id number] PhD João Blankenship See scanned report Performed at: [address] [id number] PhD João Blankenship Performed By: #### 1 [id number] #### [facility] [address] [place] [address] Reference Lab Reporton 03-12 Reference Lab Report [id number]#1.00TIFF Normal [facility] Lab Miscellaneous-LCon 03-08 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 Performed By: #### 1 [id number] #### [facility] [address] [place] [address] Basophils/Leukocytes Auto (Bld) [Pure # fraction] 0.1 E9/L Normal 0.0-0.2 [facility] Comment on above: Order Comment: Order Added by Discern Expert. Performed By: #### 1 [id number] #### [facility] [address] [place] [address] 12823 Eosinophils/100 WBC (Bld) 2.6 % Normal 0.0-8.0 [facility] Comment on above: Order Comment: Order Added by Discern Expert. Performed By: #### 1 [id number] #### [facility] [address] [place] [address] 23769 Eosinophils/Leukocyt es Auto (Bld) [Pure # fraction] 0.2 E9/L Normal 0.0-0.5 [facility] Comment on above: Order Comment: Order Added by Discern Expert. Performed By: #### 1 [id number] #### [facility] [address] [place] [address] 71326 Lymphocytes/100 WBC (Bld) 18.6 % Normal 14.0-50.0 [facility] Comment on above: Order Comment: Order Added by Discern Expert. Performed By: #### 1 [id number] #### [facility] [address] [place] [address] 38238 Lymphocytes/Leukocyt es Auto (Bld) [Pure # fraction] 1.3 E9/L Normal 1.0-4.0 [facility] Comment on above: Order Comment: Order Added by Wilbert Expert. Performed By: #### 1 [id number] #### [facility] [address] [place] [address] 88713 Monocytes/100 WBC (Bld) 10.3 % Normal 4.0-14.0 [facility] Comment on above: Order Comment: Order Added by Discern Expert. Performed By: #### 1 [id number] #### [facility] [address] [place] [address] 54882 Monocytes/Leukocytes Auto (Bld) [Pure # fraction] 0.7 E9/L Normal 0.2-1.0 [facility] Comment on above: Order Comment: Order Added by Wilbert Expert. Performed By: #### 1 [id number] #### [facility] [address] [place] [address] Neutrophils/100 WBC (Bld) 67.8 % Normal 36.0-75.0 [facility] Comment on above: Order Comment: Order Added by Discern Expert. Performed By: #### 1 [id number] #### [facility] [address] [place] [address] 49219 Neutrophils/Leukocyt es Auto (Bld) [Pure # fraction] 4.8 E9/L Normal 2.0-7.5 [facility] Comment on above: Order Comment: Order Added by Discern Expert. Performed By: #### 1 [id number] #### [facility] [address] [place] [address] 35378 CBC w/ Auto Diffon 3 Erythrocyte distribution width (RBC) [Ratio] 13.1 % Normal 10.9-14.2 [facility] Comment on above: Performed By: #### 1 [id number] #### [facility] [address] [place] [address] 03757 Hematocrit (Bld) [Volume fraction] 39.2 % Normal 37.7-49.0 [facility] Comment on above: Performed By: #### 1 [id number] #### [facility] [address] [place] [address] 85508 Hemoglobin (Bld) [Mass/Vol] 13.4 g/dL Low 13.5-17.5 [facility] Comment on above: Performed By: #### 1 [id number] #### [facility] [address] [place] [address] 94042 MCH (RBC) [Entitic mass] 29.0 pg Normal 27.0-34.0 [facility] Comment on above: Performed By: #### 1 [id number] #### [facility] [address] [place] [address] 57366 MCHC (RBC) [Mass/Vol] 34.3 g/dL Normal 31.4-36.0 [facility] Comment on above: Performed By: #### 1 [id number] #### [facility] [address] [place] [address] MCV (RBC) [Entitic vol] 84.6 fL Normal 80.0-100.0 [facility] Comment on above: Performed By: #### 1 [id number] #### [facility] [address] [place] [address] Platelet mean volume (Bld) [Entitic vol] 7.7 fL Normal 6.4-10.8 [facility] Comment on above: Performed By: #### 1 [id number] #### [facility] [address] [place] [address] Platelets (Bld) [#/Vol] 261.0 E9/L Normal 150.0-500. 0 [facility] Comment on above: Performed By: #### 1 [id number] #### [facility] [address] [place] [address] RBC (Bld) [#/Vol] 4.6 E12/L Normal 4.3-5.9 [facility] Comment on above: Performed By: #### 1 [id number] #### [facility] [address] [place] [id number] WBC corrected for nucl RBC Auto (Bld) [#/Vol] 7.1 E9/L Normal 4.0-11.0 [facility] Comment on above: Performed By: #### 1 [id number] #### [facility] [address] [place] [id number] CHEMISTRYOrdered By: SYSTEM SYSTEM on 03-07-2023 CRP [Mass/Vol] 1.8 mg/dL Normal <=1.9mg/dL [facility] Remis ol CRPon 03-07-2023 CRP [Mass/Vol] 1.8 mg/dL Normal <=1.9 [facility] Comment on above: Performed By: #### 1 [id number] #### [facility] [address] [place] [address] Consent for Treatmenton Consent for Treatment [id number]#1.00TIFF Normal [facility] Erythrocyte Sedimentation Ra aniya 03-07-2023 ESR (Bld) [Velocity] 9 mm/h Normal 0-19 [facility] Comment on above: Result Comment: PERF ORMED BY: [place] [address] PATHOLOGIST VIDEO GAME CREATOR BARI GREENE M.D. Performed By: #### E #### [address] Erythrocyte sedimentation ra te by Photometric methodOrdered By: Huan Cowan on 03-07-2023 ESR Photometric method (Bld) [Velocity] 9 mm/hr 0-19 [facility] HEMATOLOGYOrdered By: SYSTEM SYSTEM on 03-07-2023 Basophils/100 [...] 7.7 fL Normal 6.4 - 10.8 fL [facility] HemeAutoSS Platelets (Bld) [#/Vol] 261.0 E9/L Normal 150.0 - 500.0 E9/L [facility] HemeAutoSS RBC (Bld) [#/Vol] 4.6 E12/L Normal 4.3 - 5.9 E12/L [facility] HemeAutoSS WBC corrected for nucl RBC Auto (Bld) [#/Vol] 7.1 E9/L Normal 4.0 - 11.0 E9/L [facility] HemeAutoSS Lab Miscellaneous-LCon 03-07 Test Code 116518 Invalid Interpretation Code [facility] Comment on above: Performed By: #### 1 [id number] #### [facility] [address] [place] [address] Test Code TO [facility] Invalid Interpretation Code [facility] Comment on above: Performed By: #### 1 [id number] #### [facility] [address] [place] [address] Test Name IL 6 Invalid Interpretation Code [facility] Comment on above: Performed By: #### 1 [id number] #### [facility] [address] [place] [address] Test Name SED RATE/FIREAL Invalid Interpretation Code [facility] Comment on above: Performed By: #### 1 [id number] #### [facility] [address] [place] [address] Physician Orderon 03-07-2023 Physician Order [id number]#1.00TIFF Normal [facility] Reference Laboratory Testing Ordered By: Yasmeen Ca on 03-07-2023 Sodium [Moles/Vol] 255166 mmol/L Invalid Interpretation Code [facility] SendOutsSS Test Code TO [facility] Invalid Interpretation Code [facility] SendOutsSS Test Name SED RATE/FIREAL Invalid Interpretation Code [facility] SendOuts Test Name [place] 6 Invalid Interpretation Code [facility] SendOutsSS Operative Reporton Operative Report [id number]#1.00TIFF Normal [facility] Formson 02-27-2023 Forms [id number]#1.00TIFF Normal [facility] Provider Letteron 02-27-2023 Provider Letter (Inserted Image. Jessica ble to display) [address] [place] [address] February 27, 2023 NEHAL BAIG [address] [place] [address] : [address] Mazariegos, The above patient has been evaluated at your request for preoperative clearance. After assessment of available pertinent labs and diagnostic tests, I feel this patient is medically optimized for surgery. Final discretion of whether the patient is cleared for surgery remains up to the surgeon/anesthesiologist. Thank you, MOSHE Mota Normal [facility] Auto Diffon 02-26-2023 Basophils/100 WBC (Bld) 0.6 % Normal 0.0-2.0 [facility] Comment on above: Order Comment: Order Added by Discern Expert. Performed By: #### 1 [id number] #### [facility] [address] [place] [address] Basophils/Leukocytes Auto (Bld) [Pure # fraction] 0.1 E9/L Normal 0.0-0.2 [facility] Comment on above: Order Comment: Order Added by Discern Expert. Performed By: #### 1 [id number] #### [facility] [address] [place] [address] 38807 Eosinophils/100 WBC (Bld) 2.3 % Normal 0.0-8.0 [facility] Comment on above: Order Comment: Order Added by Discern Expert. Performed By: #### 1 [id number] #### [facility] [address] [place] [address] 30908 Eosinophils/Leukocyt es Auto (Bld) [Pure # fraction] 0.2 E9/L Normal 0.0-0.5 [facility] Comment on above: Order Comment: Order Added by Wilbert Expert. Performed By: #### 1 [id number] #### [facility] [address] [place] [address] 26548 Lymphocytes/100 WBC (Bld) 16.2 % Normal 14.0-50.0 [facility] Comment on above: Order Comment: Order Added by Wilbert Expert. Performed By: #### 1 [id number] #### [facility] [address] [place] [address] 34832 Lymphocytes/Leukocyt es Auto (Bld) [Pure # fraction] 1.5 E9/L Normal 1.0-4.0 [facility] Comment on above: Order Comment: Order Added by Discern Expert. Performed By: #### 1 [id number] #### [facility] [address] [place] [address] 17246 Monocytes/100 WBC (Bld) 6.8 % Normal 4.0-14.0 [facility] Comment on above: Order Comment: Order Added by Discern Expert. Performed By: #### 1 [id number] #### [facility] [address] [place] [address] 74204 Monocytes/Leukocytes Auto (Bld) [Pure # fraction] 0.6 E9/L Normal 0.2-1.0 [facility] Comment on above: Order Comment: Order Added by Discern Expert. Performed By: #### 1 [id number] #### [facility] [address] [place] [address] Neutrophils/100 WBC (Bld) 74.1 % Normal 36.0-75.0 [facility] Comment on above: Order Comment: Order Added by Discern Expert. Performed By: #### 1 [id number] #### [facility] [address] [place] [address] Neutrophils/Leukocyt es Auto (Bld) [Pure # fraction] 6.6 E9/L Normal 2.0-7.5 [facility] Comment on above: Order Comment: Order Added by Discern Expert. Performed By: #### 1 [id number] #### [facility] [address] [place] [address] 86382 CBC w/ Auto Diffon Erythrocyte distribution width (RBC) [Ratio] 13.6 % Normal 10.9-14.2 [facility] Comment on above: Performed By: #### 1 [id number] #### [facility] [address] [place] [address] 09373 Hematocrit (Bld) [Volume fraction] 40.5 % Normal 37.7-49.0 [facility] Comment on above: Performed By: #### 1 [id number] #### [facility] [address] [place] [address] 43423 Hemoglobin (Bld) [Mass/Vol] 13.9 g/dL Normal 13.5-17.5 [facility] Comment on above: Performed By: #### 1 [id number] #### [facility] [address] [place] [address] MCH (RBC) [Entitic mass] 28.9 pg Normal 27.0-34.0 [facility] Comment on above: Performed By: #### 1 [id number] #### [facility] [address] [place] [address] MCHC (RBC) [Mass/Vol] 34.3 g/dL Normal 31.4-36.0 [facility] Comment on above: Performed By: #### 1 [id number] #### [facility] [address] [place] [address] 35778 MCV (RBC) [Entitic vol] 84.2 fL Normal 80.0-100.0 [facility] Comment on above: Performed By: #### 1 [id number] #### [facility] [address] [place] [address] 66705 Platelet mean volume (Bld) [Entitic vol] 7.7 fL Normal 6.4-10.8 [facility] Comment on above: Performed By: #### 1 [id number] #### [facility] [address] [place] [address] 86227 Platelets (Bld) [#/Vol] 244.0 E9/L Normal 150.0-500. 0 [facility] Comment on above: Performed By: #### 1 [id number] #### [facility] [address] [place] [address] 50179 RBC (Bld) [#/Vol] 4.8 E12/L Normal 4.3-5.9 [facility] Comment on above: Performed By: #### 1 [id number] #### [facility] [address] [place] [address] 36303 WBC corrected for nucl RBC Auto (Bld) [#/Vol] 8.9 E9/L Normal 4.0-11.0 [facility] Comment on above: Performed By: #### 1 [id number] #### [facility] [address] [place] [address] 29531 Consent for Treatmenton 01-31 Consent for Treatment [id number]#1.00TIFF Normal [facility] HEMATOLOGYOrdered By: SYSTEM SYSTEM on 02-26-2023 Basophils/100 [...] 244.0 E9/L Normal 150.0 - 500.0 E9/L [facility] HemeAutoSS RBC (Bld) [#/Vol] 4.8 E12/L Normal 4.3 - 5.9 E12/L [facility] HemeAutoSS WBC corrected for nucl RBC Auto (Bld) [#/Vol] 8.9 E9/L Normal 4.0 - 11.0 E9/L [facility] HemeAutoSS Physician Orderon 02-26-2023 Physician Order [id number]#1.00TIFF Normal [facility] CHEMISTRYOrdered By: SYSTEM SYSTEM on 02-25-2023 CRP [Mass/Vol] 6.7 mg/dL High <=1.9mg/dL [facility] Remis ol CRPon 02-25-2023 CRP [Mass/Vol] 6.7 mg/dL High <=1.9 [facility] Comment on above: Performed By: #### 1 [id number] #### [facility] [address] [place] [address] Consent for Treatmenton 01-31 Consent for Treatment [id number]#1.00TIFF Normal [facility] ED Note-Physicianon 02-26-20 ED Note-Physician [id number]#1.00TIFF Normal [facility] Lab Miscellaneous-LCon 02-25 Test Code 480093 Invalid Interpretation Code [facility] Comment on above: Performed By: #### 1 [id number] #### [facility] [address] [place] [address] Test Name Interleukin-6 Invalid Interpretation Code [facility] Comment on above: Performed By: #### 1 [id number] #### [facility] [address] [place] [address] Physician Orderon 02-25-2023 Physician Order [id number]#1.00TIFF Normal [facility] RAD - MISCon 02-25-2023 RAD - MISC [id number]#1.00TIFF Normal [facility] Reference Laboratory Testing Ordered By: Elysia Oseguera on 02-25-2023 Sodium [Moles/Vol] 444836 mmol/L Invalid Interpretation Code [facility] SendOuts Test Name Interleukin-6 Invalid Interpretation Code [facility] SendOutsSS Consultation Noteon 02-20-20 Consultation Note [id number]#1.00TIFF Normal [facility] Operative Reporton 3 Operative Report [id number]#1.00TIFF Normal [facility] Consultation Noteon 01-30-20 Consultation Note [id number]#1.00TIFF Normal [facility] RAD - MRI Reporton 3 RAD - MRI Report [id number]#1.00TIFF Normal [facility] XR cerv spine AP/LAT/FLX/EXT on 01-17-2023 XR cerv spine AP/LAT/FLX/[place] [address] XRay Report Signed Patient: Nehal Baig MR#: [id number] 8 : 1970 Acct:[id number] Age/Sex: 52 / M ADM Date: 01/17/23 Loc: XD Room: Type: [facility] Attending Dr: Siri MALONEY Copies to: HAIDER [...] Khadijah Roach M.D.01/17/2023 4:22 PM Dictation Location: [facility] Transcribed By: [facility] 01/17/23 162 Dictated By: Khadijah Roach MD 01/17/23 162 Signed By: 01/17/23 162 [facility] XR lumbar spine 6V w bending on 01-17-2023 XR lumbar spine 6V w bending [facility] [place] [address] XRay Report Signed Patient: Nehal Baig MR#: [id number] 8 : 1970 Acct:[id number] Age/Sex: 52 / M ADM Date: 01/17/23 Loc: XD Room: Type: [facility] Attending Dr: Siri MALONEY Copies to: HAIDER [...] Christopher Cedeno M.D.01/17/2023 12:51 PM Dictation Location: [facility]05 Transcribed By: [facility] 01/17/23 1251 Dictated By: Christopher Cedeno DO 01/17/23 1246 Signed By: 01/17/23 1251 [facility] RAD - MISCon 01-16-2023 RAD - MIS [id number]#1.00TIFF [facility] RAD - MISC [id number]#1.00TIFF [facility] Lab Reportson 01-14-2023 Lab Reports [id number]#1.00TIFF [facility] Lab Reports [id number]#1.00TIFF [facility] Retail - Clinical Noteon Retail - Clinical Note [id number]#1.00TIFF [facility] Ambulatory Visit Summaryon 1 Ambulatory Visit [...] Depression Obesity shoulder pain sleep disorder Normal [facility] XR ankle LT min 3V*on 2022 XR ankle LT min 3V* [facility] [employer] Other XR ankle LT min 3V* [facility] Main [facility] [employer] Other XR ankle LT min 3V* [address] [place] [address] [employer] Other XR ankle LT min 3V* [place] [address] [employer] Other XR ankle LT min 3V* XRay Report [facility] [employer] Other XR ankle LT min 3V* Signed [employer] Other XR ankle LT min 3V* Patient: Nehal Baig MR#: [id number] [employer] Other XR ankle LT min 3V* 8 [employer] Other XR ankle LT min 3V* : 1970 Acct:[id number] [employer] Other XR ankle LT min 3V* Age/Sex: 52 / M ADM Date: 12/16/22 [employer] Other XR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 BLOOD SPECIMENOrdering Facility: [facility] Address: [address] [place], [place] [address] Performed By: #### 3 016-3, 30710-9 ####[place] [facility] [id number] [facility] [place] [address] [place]#### 23317-6 ####[place] [facility] [id number] [facility] [place] [id number] [facility] LABORATORYCLIA [id number] [place] [address] [place] ALP [Catalytic activity/Vol] 85 U/L Normal 38-113 [facility] Comment on above: Order Comment: Speci men Type: BLOOD SPECIMENOrdering Facility: [facility] Address: [address] [address] Performed By: #### 3 016-3, 59061-4 ####[facility] [facility] [id number] [place] [address] [place]#### 65089-8 ####[place] [facility] [id number] [address] STATES OF [facility] LABORATORYCLIA [id number] [place] [address] [place] ALT [Catalytic activity/Vol] 34 U/L Normal 10-54 [facility] Comment on above: Order Comment: Speci men Type: BLOOD SPECIMENOrdering Facility: [facility] Address: [address] Performed By: #### 3 016-3, 92427-0 ####[place] [facility] [id number] [place] [address] [place]#### 32703-3 ####[place] [facility] [id number] [place] [address] [place] [facility] LABORATORYCLIA [id number] [place] [address] [place] Anion gap [Moles/Vol] 10 mmol/L Normal 9-18 [facility] Comment on above: Order Comment: Speci men Type: BLOOD SPECIMENOrdering Facility: [facility] Address: [address] [place] [address] Performed By: #### 3 016-3, 31468-7 ####[place] [facility] [id number] [place] [address] [place]#### 60695-3 ####[place] [facility] [id number] [address] [place] LABORATORYCLIA [id number] [place] [address] [place] AST [Catalytic activity/Vol] 25 U/L Normal 14-40 [facility] Comment on above: Order Comment: Speci men Type: BLOOD SPECIMENOrdering Facility: [facility] Address: [address] Performed By: #### 3 016-3, 90751-9 ####[place] [facility] [id number] [place] [address] [place]#### 36048-3 ####[place] [facility] [id number] [address] STATES OF [facility] LABORATORYCLIA [id number] [place] [address] [place] Bilirubin [Mass/Vol] 0.4 mg/dL Normal 0.2-1.3 [facility] Comment on above: Order Comment: Speci men Type: BLOOD SPECIMENOrdering Facility: [facility] Address: [address] [place] [address] Performed By: #### 3 016-3, 50947-0 ####[place] [facility] [id number] [place] [address] [place]#### 88812-4 ####[place] [facility] [id number] [place] [id number] [place] [facility] LABORATORYCLIA [id number] [place] [address] [place] Calcium [Mass/Vol] 9.3 mg/dL Normal 8.5-10.2 [facility] Comment on above: Order Comment: Speci men Type: BLOOD SPECIMENOrdering Facility: [facility] Address: [address] [place] [address] Performed By: #### 3 016-3, ####[place] [facility] [id number] [facility] [place] [address] [place]#### 27[address]-7 ####[place] [facility] [id number] [facility] [place] [address] [place] [facility] LABORATORYCLIA [id number] [place] [address] [place] Chloride [Moles/Vol] 103 mmol/L Normal 97-105 [facility] Comment on above: Order Comment: Speci men Type: BLOOD SPECIMENOrdering Facility: [facility] Address: [address] [place] [address] Performed By: #### 3 016-3, ####[place] [facility] [id number] [facility] [place] [address] [place]#### 95983-7 ####[place] [facility] [id number] [facility] [place] [address] [place] [facility] LABORATORYCLIA [id number] [place] [address] [place] CO2 [Moles/Vol] 26 mmol/L Normal 22-30 [facility] Comment on above: Order Comment: Speci men Type: BLOOD SPECIMENOrdering Facility: [facility] Address: [address] [place] [address] Performed By: #### 3 016-3, ####[place] [facility] [id number] [facility] [place] [address] [place]#### 03681-7 ####[place] [facility] [id number] [address] LABORATORYCLIA [id number] [place] [address] [place] [facility] Creatinine [Mass/Vol] 0.90 mg/dL Normal 0.73-1.22 [facility] Comment on above: Order Comment: Speci men Type: BLOOD SPECIMENOrdering Facility: [facility] Address: [address] [place] [address] Performed By: #### 3 016-3, ####[place] [facility] [id number] [address] STATES [facility]#### 25531-5 ####[place] [facility] [id number] [address] LABORATORYIA [id number] [address] STATES [facility] ESTIMATED GLOMERULAR FILTRATION RATE 105 mL/min/1.73m??? Normal >=60 [facility] Comment on above: Order Comment: Speci men Type: BLOOD SPECIMENOrdering Facility: [facility] Address: [address] [place] [address] Result Comment: Halle mated Glomerular Filtration Rate [...] actual GFR. Performed By: #### 3 016-3, ####[place] [facility] [id number] [address] [place]#### 615[address]-0 ####[place] [facility] [id number] [address] LABORATORYCLIA [id number] [place] [address] [place] Glucose [Mass/Vol] 115 mg/dL High 74-99 [facility] Comment on above: Order Comment: Tessa flores Type: BLOOD SPECIMENOrdering Facility: [facility] Address: [address] [place] [id number] Result Comment: The [place] Diabetes Association (ADA) provides guidance for cutoff [...] Standards of Medical Care in Diabetes 2016, [place] [employer]. Diabetes Care. 2016.39(Suppl 1). Performed By: #### 3 016-3, ####[place] [facility] [id number] [place] [address] [place]#### 56416-6 ####[place] [facility] [id number] [place] [address] [place] [facility] LABORATORYCLIA [id number] [place] [address] [place] Potassium [Moles/Vol] 4.2 mmol/L Normal 3.7-5.1 [facility] Comment on above: Order Comment: Tessa flores Type: BLOOD SPECIMENOrdering Facility: [facility] Address: [address] [place] [address] Performed By: #### 3 016-3, ####[place] [facility] [id number] [place] [address] [place]#### 44328-1 ####[place] [facility] [id number] [address] STATES OF [facility] LABORATORYCLIA [id number] [place] [address] [place] Protein [Mass/Vol] 6.9 g/dL Normal 6.3-8.0 [facility] Comment on above: Order Comment: Speci men Type: BLOOD SPECIMENOrdering Facility: [facility] Address: [address] [place] [address] Performed By: #### 3 016-3, 66639-2 ####[place] [facility] [id number] [place] [address] [place]#### 08482-2 ####[place] [facility] [id number] [address] STATES [facility] LABORATORYCLIA [id number] [place] [address] [place] Sodium [Moles/Vol] 139 mmol/L Normal 136-144 [facility] Comment on above: Order Comment: Speci men Type: BLOOD SPECIMENOrdering Facility: [facility] Address: [address] Performed By: #### 3 016-3, 74613-7 ####[place] [facility] [id number] [place] [address] [place]#### 58391-7 ####[place] [facility] [id number] [address] [id number] [place] [facility]ORYCLIA [id number] [place] [address] [place] Urea nitrogen [Mass/Vol] 15 mg/dL Normal 9-24 [facility] Comment on above: Order Comment: Speci men Type: BLOOD SPECIMENOrdering Facility: [facility] Address: [address] Performed By: #### 3 016-3, 25027-6 ####[place] [facility] [id number] [address] [address] [place]#### 62188-1 ####[place] [facility] [id number] [address] [address] [place] [facility]ORATORYCLIA [id number] [facility] [address] [facility] HbA1c (Bld)on 02-10-2022 Average glucose Estimated from glycated hemoglobin (Bld) [Mass/Vol] 105 mg/dL Normal [facility] Comment on above: Order Comment: Tessa flores Type: BLOOD SPECIMENOrdering Facility: [facility] Address: [address] [place] [address] Result Comment: eAG: (Estimated average glucose) is a calculated value from HgbA1c and is public relations representative of the average blood glucose level in the last 2-3 month period. Performed By: #### 5 5454-3 ####[place] [facility] [id number] [address] HbA1c (Bld) [Mass fraction] 5.3 % Normal 4.3-5.6 [facility] Comment on above: Order Comment: Tessa flores Type: BLOOD SPECIMENOrdering Facility: [facility] [facility] Address: [address] [place] [address] Result Comment: Amer ican Diabetes Association guidelines indicate that patients with HgbA1c in the range 5.7-6.4% are at increased risk for development of diabetes, and intervention by lifestyle modification may be beneficial. HgbA1c greater or equal to 6.5% is considered diagnostic of diabetes. Performed By: #### 5 5454-3 ####[place] [facility] [id number] [address] OF [facility] Lipid 1996 panelon 2 Cholesterol [Mass/Vol] 179 mg/dL Normal <200 [facility] Comment on above: Order Comment: Tessa flores Type: BLOOD SPECIMENOrdering Facility: [facility] Address: [address] [place], [place] [address] Result Comment: <200 mg/dL, Desirable 200-239 mg/dL, Borderline high >239 mg/dL, High Performed By: #### 3 016-3, 42095-2 ####[place] [facility] [id number] [place] [address] [place]#### 24879-9 ####[place] [facility] [id number] [address] OF [facility] [place] [facility]ATORYCLIA [id number] [address] Cholesterol in HDL [Mass/Vol] 36 mg/dL Low >39 [facility] Comment on above: Order Comment: Speci men Type: BLOOD SPECIMENOrdering Facility: [facility] Address: [address] [place], [place] [address] Result Comment: 40-5 9 mg/dL, Acceptable >59 mg/dL, High: Negative risk factor for coronary heart disease <40 mg/dL, Low: Positive risk factor for coronary heart disease Performed By: #### 3 016-3, 53954-6 ####[place] [facility] [id number] [address] [place]#### 18873-9 ####[place] [facility] [id number] [address] STATES OF [facility] [place]ATORYCLIA [id number] [place] [address] [place] Cholesterol in LDL [Mass/Vol] 104 mg/dL High <100 [facility] Comment on above: Order Comment: Speci men Type: BLOOD SPECIMENOrdering Facility: [facility] Address: [address] [place] [address] Result Comment: <100 mg/dL, Optimal 100-129 mg/dL, Near optimal/above optimal 130-159 mg/dL, Borderline high 160-189 mg/dL, High >189 mg/dL, Very high Secondary prevention optimal LDL Cholesterol levels are recommended to be < 70 mg/dL Performed By: #### 3 016-3, 30601-4 ####[place] [facility] [id number] [address]#### 83126-1 ####[place] [facility] [id number] [address] LABORATORYIA [id number] [address] Cholesterol in LDL/Cholesterol in HDL [Mass ratio] 2.89 {ratio} High <2.54 [facility] Comment on above: Order Comment: Speci men Type: BLOOD SPECIMENOrdering Facility: [facility] Address: [address] [place] [address] Result Comment: Refe rence: 1. National Cholesterol Education Program ATP III Guideline At-A-Glance Quick Desk Reference: National Heart, Lung, and Blood [place]. National Institutes of Health. 2001: NIH Publication No. 01-3305. 2. An International Atherosclerosis Society position paper: global recommendations for the management of dyslipidemia: executive summary, Atherosclerosis. 2014: 232(2):410-413. Performed By: #### 3 016-3, ####[place] [facility] [id number] [address]#### 41589-1 ####[place] [facility] [id number] [address] LABORATORYCLIA [id number] [address] Cholesterol in VLDL [Mass/Vol] 39 mg/dL High <30 [facility] Comment on above: Order Comment: Speci men Type: BLOOD SPECIMENOrdering Facility: [facility] Address: [address] [address] Performed By: #### 3 016-3, 94463-9 ####[place] [facility] [id number] [address] [address] [place]#### 35851-4 ####[place] [facility] [id number] [address] [address] [place] [facility] [place] LABORATORYCLIA [id number] [place] [address] [place] Cholesterol non HDL [Mass/Vol] 143 mg/dL High <130 [facility] Comment on above: Order Comment: Speci men Type: BLOOD SPECIMENOrdering Facility: [facility] Address: [address] [place] [address] Result Comment: <130 mg/dL, Optimal 130-159 mg/dL, Near optimal/above optimal 160-189 mg/dL, Borderline high 190-219 mg/dL, High >219 mg/dL, Very high Secondary prevention optimal non HDL Cholesterol levels are recommended to be <100 mg/dL Performed By: #### 3 016-3, 03330-7 ####[place] [facility] [id number] [place] [address] [place]#### 59939-4 ####[place] [facility] [id number] [place] [id number] [place] [facility]ACL[facility] LABORATORYCLIA [id number] [place] [address] [place] Cholesterol.total/Ch olesterol in HDL [Mass ratio] 4.97 {ratio} Normal <5.10 [facility] Comment on above: Order Comment: Speci men Type: BLOOD SPECIMENOrdering Facility: [facility] Address: [address] [id number] Performed By: #### 3 016-3, 98267-0 ####[place] [facility] [id number] [address] [address] [place]#### 84839-2 ####[place] [facility] [id number] [address] [place] LABORATORYCLIA [id number] [place] [address] [place] FASTING TIME 12 hrs Normal [facility] Comment on above: Order Comment: Speci men Type: BLOOD SPECIMENOrdering Facility: [facility] Address: [address] [place] [address] Performed By: #### 3 016-3, 02848-6 ####[place] [facility] [id number] [place] [address] [place]#### 27077-9 ####[place] [facility] [id number] [address] STATES [facility] LABORATORYCLIA [id number] [place] [address] [place] Triglyceride [Mass/Vol] 197 mg/dL High <150 [facility] Comment on above: Order Comment: Speci men Type: BLOOD SPECIMENOrdering Facility: [facility] Address: [address] [place] [address] Result Comment: <150 mg/dL, Normal 150-199 mg/dL, Borderline high 200-499 mg/dL, High >499 mg/dL, Very high Performed By: #### 3 016-3, 73834-8 ####[place] [facility] [id number] [place] [address] [place]#### 48755-0 ####[place] [facility] [id number] [place] [address] [place] [facility] LABORATORYCLIA [id number] [place] [address] [place] PSA/PROSTSPECAG SCRNon 02-10 Prostate specific Ag [Mass/Vol] 0.42 ng/mL Normal <2.60 [facility] Comment on above: Order Comment: Speci men Type: BLOOD SPECIMENOrdering Facility: [facility] Address: [address] [address] Result Comment: Tota l PSA test methodology used is the Electrochemiluminescence Immunoassay by [employer]. Total PSA values by differing methodologies cannot be interchanged. Performed By: #### P SAS1 ####[place] [facility] [id number] [address] [place] TSH SerPl-aCncon 02-10-2022 TSH Qn 1.220 m[IU]/L Normal 0.270-4.20 0 [facility] Comment on above: Order Comment: Speci men Type: BLOOD SPECIMENOrdering Facility: [facility] Address: [address] [place] [address] Performed By: #### 3 016-3, 28816-1 ####[place] [facility] [id number] [place] [address] [place]#### 87281-5 ####[place] [facility] [id number] [address] STATES OF [facility] LABORATORYCLIA [id number] [place] [address] [place] URINALYSIS, REFLEX MICROSCOP ICon 02-10-2022 Bilirubin Ql (U) Negative Normal Negative [facility] Comment on above: Order Comment: Speci men Type: URINE SPECIMENOrdering Facility: [facility] Address: [address] [address] Performed By: #### L [id number] ####[place] [facility] [id number] [address] [place] CALCIUM OXALATE CRYSTALS (UA) Few Abnormal None Seen [facility] Comment on above: Order Comment: Speci men Type: URINE SPECIMENOrdering Facility: [facility] Address: [address] [address] Performed By: #### L [id number] ####[place] [facility] [id number] [address] [place] Clarity (Unsp spec) Clear Normal Clear Angelo [facility] Comment on above: Order Comment: Speci men Type: URINE SPECIMENOrdering Facility: [facility] Address: [address] [address] Performed By: #### L [id number] ####[place] [facility] [id number] [address] STATES OF [facility] Color (U) Yellow Normal Yellow [facility] Comment on above: Order Comment: Speci men Type: URINE SPECIMENOrdering Facility: [facility] Address: [address] [place] [address] Performed By: #### L [id number] ####[place] [facility] [id number] [address] OF [facility] Epithelial cells LM.HPF (Urine sed) [#/Area] Few Normal [facility] Comment on above: Order Comment: Speci men Type: URINE SPECIMENOrdering Facility: [facility] Address: [address] [place] [address] Result Comment: Few Performed By: #### L [id number] ####[place] [facility] [id number] [address] [place] Glucose Test strip (U) [Mass/Vol] Negative Normal Negative [facility] Comment on above: Order Comment: Speci men Type: URINE SPECIMENOrdering Facility: [facility] Address: [address] [place], [place] [address] Performed By: #### L [id number] ####[place] [facility] [id number] [address] [place] Hemoglobin Ql (U) Negative Normal Negative [facility] Comment on above: Order Comment: Speci men Type: URINE SPECIMENOrdering Facility: [facility] Address: [address] [place] [address] Performed By: #### L [id number] ####[place] [facility] [id number] [place] [address] [place] Ketones Ql (U) Negative Normal Negative [facility] Comment on above: Order Comment: Speci men Type: URINE SPECIMENOrdering Facility: [facility] Address: [address] [place], [place] [address] Performed By: #### L [id number] ####[place] [facility] [id number] [place] [address] [place] Leukocyte esterase Test strip Ql (U) 75 Joyce/mL Abnormal Negative [facility] Comment on above: Order Comment: Speci men Type: URINE SPECIMENOrdering Facility: [facility] Address: [address] [place], [place] [address] Performed By: #### L [id number] ####[place] [facility] [id number] [address] [place] Nitrite Ql (U) Negative Normal Negative [facility] Comment on above: Order Comment: Speci men Type: URINE SPECIMENOrdering Facility: [facility] Address: [address] [place], [place] [address] Performed By: #### L [id number] ####[place] [facility] [id number] [place] [address] [place] pH (U) 6.0 [pH] Normal 5.0-8.0 [facility] Comment on above: Order Comment: Speci men Type: URINE SPECIMENOrdering Facility: [facility] Address: [address] [place], [place] [address] Performed By: #### L [id number] ####[place] [facility] [id number] [place] [address] [place] Protein (U) [Mass/Vol] 1+ Abnormal Negative [facility] Comment on above: Order Comment: Speci men Type: URINE SPECIMENOrdering Facility: [facility] Address: [address] [place] [address] Performed By: #### L [id number] ####[place] [facility] [id number] [address] STATES [facility] RBC LM.HPF (Urine sed) [#/Area] 0-3 /HPF Normal 0-3 /HPF [facility] Comment on above: Order Comment: Speci men Type: URINE SPECIMENOrdering Facility: [facility] Address: [address] [place] [address] Performed By: #### L [id number] ####[facility] [id number] [place] [address] [place] Specific gravity (U) [Rel density] 1.037 High 1.005-1.03 0 [facility] Comment on above: Order Comment: Speci men Type: URINE SPECIMENOrdering Facility: [facility] Address: [address] [place] [address] Performed By: #### L [id number] ####[place] [facility] [id number] [address] Urobilinogen Ql (U) 1+ Abnormal Negative [facility] Comment on above: Order Comment: Speci men Type: URINE SPECIMENOrdering Facility: [facility] Address: [address] [place], [place] [address] Performed By: #### L [id number] ####[place] [facility] [id number] [address] [place] WBC LM.HPF (Urine sed) [#/Area] 0-5 /HPF Normal 0-5 /HPF [facility] Comment on above: Order Comment: Speci men Type: URINE SPECIMENOrdering Facility: [facility] Address: [address] [place] [address] Performed By: #### L [id number] ####[place] [facility] [id number] [address] [address] [place] Outside Recordson 02-09-2022 Outside Records [id number] 01-24-2022 Outside Records [id number]#[facility] Coding Summaryon 01-04-2022 Coding Summary HTMLBase 64 QwobvcelLKn5vBy+PGhlYWQ+PE 9TSFHiX27jyZEmvN0QT7iYFA1R VBOADREQCC7YPB2heYT6WVxgW6 VybiAv MutoxVOwOZ44OIz4DBS3zIveQE rssF9jbQXwK6y5YrOqAM24bG01 CQzvNZWgEpL4CsFbamxqfIIs Y5sdUbUhcVQhQap+PHRhYmxlIH zaGLNpGLiyIXHaCyYqiPdtYR1w Lq3oDQWkKFIucGhhtEIhXrRn h1dhPNPoCFrlGK4qhAsaR9TyvL L0XGOhp9g7Ji69dBR+PHRkIHN0 fLvrNBbqq729UvBbx8wdGMZ9 ySOhGKstMBF0Z49rp4E8CVSuQS BgDBT6bEQ1lY9vyRrruydyO3Kd fMFpLiP2PAB3cNWxhC5ciEfk ioitcP9eBgs+O77XZT4CKRVMYW 0ESgn8Z1FwNucayLT+JD66EQZv WM37vFDyuVEfr0jrcFj4RxZx ZJLsLAD2ePvkJFers8ZcJYRoA3 5zzJMzt4C8SEHnzQhwqXDvKaJf wHZ7lU2xUMrcydhzs2gnncrj Xmtod7ljiv33sQ54A36pVPopXX JeINN5NRStFMLwlXctuc8zbS6y Ii8+GQmno7zwt6frjJk0KvOy YPDxedYagCqfQQZ5f6GdJf44Q1 IdgCldy9JbEmc2ll74kLYin4A1 jDK8BSepIEFogX2xVWpbYqJ9 FYUtTwJdlX77oBQdFQkuUk1vxY zkrLclTJ8cXXKnvuwpGPAetR2z YWGngGQlxLmsGO0hGNKcfmxo b893EmNyGWH9MONfvXUeS4AgyH 3bWuMzCVJjORQpQ5DnaBKrMAhz Q507BZcoVpC2QJXvvnPxP9Ow LWTpcChmJjR4c8E9Jd6Dr5Wbjo fhYCD5OOsvKXNkYlA5SbZeAbQ4 I2VdQsf6VKYpbFivIA0iY0Ku DKQxlnrsapfhoVM3VRTgVAGxgR 12mVDoKUbfNz6kh1W3t421YGPb RMKzmZ94Qx6pwFzkPQLymSTC gZ2dxzyph8psprmrGwGiFGZzMB d5TGq3EGDlvDbtFaHfRVN7ZeA2 IEH9cFKdyY7ryLafrmiiuA7j Oyc+J33cfA9lNBS8FXH7dqoqPV ZyuwAfVO23FX23A1FiXmczuCRo bGU+KNFmaaTjgIuqDV8iAgIs z4qef1XiASskN0PpTEPhZHdtUj x5DWVmOYI0zEF0dF6lNLXxKNof e6O3nQN6Q6WrzpSygo6qy1yv PFQjPXodJ96ibVCfj6Y2QUSsoC P7FHGuaJhwLzXpoX16Zki+PGNv yAjgv9VfNwkps0qda3pwzOf0 NbYrQSStweVllUgnWTI1z0ItWv 07T64tFKntHKTbHBXqLHUjECGp aTsesb6dbH7mUe8+PGNvbCB3 aJE5eO7rITSvZbB4WXthG095Kx HclOLoDohtc6oqj0paoSh3PvXp RUAjlbTouUofDCZ6f8RqMd18 S77gMBcmDLCvDGVfFAZoHWEfjU geld4bgF1pQg4+LV2ys6xjjx09 tD18uTJ+SFQwOLJ2pDrvJYzp DFJonD9jAZihEjK9GLDbRmWfqV 57aJXoEWbtQd1vuPtlrVhjCR8a QXVrbdfgt742DoKsj7kaHKPl pYBvMTgyAPH4E02zd7E1ITWrOX ZpXDQ0iEO6wV1pzRrpuqhihOEi tVipmiGvdTpmBAujJJhtF673 IHRvcDsnPlBhdGllbnQgTmFtZT t9S1GdZar5KLXfkFcqSA5fmOYz RFpqZb6wlWbsdVtqXY0rXTRr mrvds495MrIqh9hyBFGcdIGcXZ ftIAX7E36pp3V7BPMjNMWaOEW3 hRX5fM2tdHciaoxsqBVlyUvn ywQqwJozHFqsZEsuF480IMJbdY frWxRdbnNzNIZwxDK4ZQ10CO55 lKPtb8Q2vUK5J4PbPXZsggyl mvsxcKU8VWDzSTXbvI34Wr0igZ tbEr0wDFTdIIU1EQHagXBcN9Yf bG4wYjGcZBRzKQHxJ1NlpVEz DFmxH627GWwgMfR9VIMhljRzD2 ByBLDwzXtqCkJ7m0H1Xp9CH8U5 KP19TU46dOGxn4B5dPI4E3De YEXipaphzluzzIC5BMXeQPDgjI 08Dy0gsRnrHo6iGAFuPOY8FFTh aXNuZ4AaxI6yYvTkESRvBFQk X8VhtZPsBKogJ235DWeeJdP1HB SdlwFqU9LbHQOgtDczQrN7c2K0 Fi5QFOp7UO90ZY56sSDcu9F7 xZT6G0YoWDDacpehftjxdYI7MW XlCSNkrF34Oo1ciCtuEd6rYENp MOX9HRFhfXNiQ5GpgR1gRtJc FKBuYIHvT2WcrHFvRLwhM430WG whLvZ1OWWzpjJmN4XrEPDatIly GdG0q8C2Ve3YHMPtKU38TVT3 sQU7BC70XO10P6EpZomjgRQsaR U+PHRhYmxlIHdpZHRoPScxMDAl ArRarHtjPY4xRl6tJKDtRWLa tMhkbMCiXmAnd2czNLXhYMmpEH 7paGvtF6CvrVB6UWWxk8a5Cb39 Z95uN1LagZW+OXEqsSX7vUN6 vM0bVhHaWmO8HVqvO562GhXxaZ GeLxpdv7fxm6kiiOt7AoX7TOEd ouKfuTeySUP1s0YlVz09C71c IHdpZHRoPSIxNSUiIHZhbGlnbj 9uxX7iBr2+AQJvbIP5nWZ7bA6p BmPjSyX7CFexL877ZkAjoOXt Vzhhu2tcx8lhfDu1IxXfZNJodk FuzJssSKJ9q1JyCu87G1TtzVzy f7EdBrp2dt45sICxx7M2fRB2 J1QbCYGkhgjzdBEnkTnzHY0uMJ SkephnDUSgsV7sTKIcU3w6FjVj WcP9WQffN1EsmiP8AINlwSUl QRrxTIN2K24vx7H2FQDiFCHmTS E4fWQ5pY0zoHxpsltltIJqbHof vaYuqSpmBXvjKDgxV950OPPa hLmoNETnfE1vBTSfrHTtnEhkTW 4oEAQdsynlXokCSD4YLjntXICS CmLHHIqUShE4S2VfIuq4JCGm cAylXA3phHPtLRerSt4hwEgyuM avLT6iWGWcrtseHLHfjD5tHEYd bUCcuRbnJL7xXPCapwgie019 FbKdYBQ7DMUwtPHgY6TlyR9kVl RsDHXaPSXoP9GbqMCvXMhuA189 OLirZhZ2PIZcjzXrP3YtXOPm bFrhXiY9s5L1Pf5kSy4qKH5yAD urHS97GK45eVBqx6D1vAE2Z1Vb LEEuimvazkvqbFS7HWIwDAAc gM21hKKeBPwvOt3zh8F6l619XF DxPEUtbG60Vv9xyDtpHQTvoCFE pP1xrsoho8lqqkjlOcUaYRQj EVz0EAp6CMSnqWslHxPeTVL5Ap A3PKR2lJLpfT1igOwdgpzirJ0w Oyc+UZcuNVShpmC4D2ZgFce4 BZXpwSpjAH1hpPRtPOizSp4hyE ipbKtdYU8dPAPzhzgsCKHdvR3z HHQedDKshJcuHS1gZTTbtlag u242VlKgCHF3ACPuwXGcW1DuoJ 6oLoNbDCIeCWXuX2ZdsSGuRGpg Y140IXhiTlL2QTMjanBzD8Lt NIRbbBwmMoQ2q1P6Mh7YHUdXOG 27XD10bUSqg3C5wUW6J0SoVEQh hrlpxhmyrUU9KAJsFNCniN51 cSFyAOsfLm3mi1I1t966WEQcWJ MpbZ12Cl3nrCogIEHtfAJYrY9d ierfg0aaqhbgPlOyRCNzEQg9 TEo6TDQrlFntSlQpZSE1ReS9GU R4uFVbdZ9nkOelmtqpdQ3zFsr+ E4I3I0OxPttfiUK+JU88WDKf LQ07fGNucXFcx8cdoHr9YxEtIX WiMGX7pCijUHiua8MoHDFqU21k vVGkj9N4ASOeeKrfqQCgVyGb sTP3qE4yPVukdqyte5jcvbseSe kvx2pefa14bA43A82nNTnvAYFv WIHlNCVqTTBnrGcarz7knP7p Ii8+LLVeaYQ1gTM0sK2tIiYhIr H8WDlcS919VtEmjQBqUdbdq2ot q7yuzQi2PcEhSYFbpiEepPpo JMR9r6NdBy05L18oCXneJZYvVS IeLFBkMCRkpAkjps4vsC9nAq1+ FY6jz2ptol06oA41kSD+PHRk HVI4cWdgKKslRBKkoG9xFPlyZz S3AFCkYeQdqK10xBOvFYniIc7r wCnwqJrpHB1fGKZiwhcvr553 ZdIyi8qaOZCapMTmYColVGV5Q6 9xu4D6BYSqTQJnBWO6yKQ0qE7y bGlnbjogbGVmdDsgdmVydGlj ALlnSAqdD476QVCgmYihAyZhfQ CqY1ceqvVMXB9jVyqnwXO+PHRk FXA9zTqfPQgbXMBomA0lWZVr B1h4RlDzImF1IFyoQ5RszvL4TG FavAThAQQzpPQDmC9vfsrqn9pb ttiiEzMeYAVjUZc8VYr4UIKj zYmlWxXpWQM5FaI4HYF0kCXxsC 1djQpvwizhaZ2xDzf+RklOOjwv dGQ+VJBgOZT0kIpeTCcqRVRw pK8lFJQpF0k3JlNrVwM0PDxtT5 QhfeL0NDOqrLFnKDWklSXNiR1d bqaah8qkudjoMrHxNOVtTOt9 VSz3ARNhxLxlIaNpXDB7OeT4JT U6eKVgdW9efUoaalvarL1iHyq+ TVJOOjwvdGQ+HYPkALC2bTmj RCprYIDauD9jJITgE2f5WcUwPx U4EVdgZ6DsqkM8ABJgnKJfITMd zOHRhO5xaozvi9syiuahLcLp OJQuIMb2DFg1ILLbvTzsTpFyFA W4ZaN1UWG9sOVixB4wlUotioed eN2aVhm+KGT2KFJ8DE25AO01 L6ZtTkpgpQRbgQG+PHRhYmxlIH yqJHKeDNxeIWKwTtQyiExbBL4f Eq0wRHUkZBIwlYonrUVxGoXz b2x (more content not included)... [facility] Ambulance Noteon 12-28-2021 Ambulance Note [id number] [facility] ED Clinical Summaryon 2021 ED Clinical Summary [facility] ? Urgent Care [address] [place], [place] [id number] Clinical Summary PERSON INFORMATION Name: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 report reviewed and electronically signed by: BREANNE RICHMOND MD on Sep 19 2021 3:24PM EST [id number] Normal [facility] US CAROTID BILATon [facility] CT CHEST WO IVCONon 09-19-19 CT CHEST [...] No abnormality in the imaged upper abdomen. Screener And Blender (topogram) images: No additional findings. IMPRESSION: Stable pulmonary nodules including the 7 mm nodule along the minor fissure. Transcribed Using Voice Recognition Transcribe Date/Time: Sep 20 2021 2:25P Dictated by: POLY JACKSON MD This examination was interpreted and the report reviewed and electronically signed by: POLY JACKSON MD on Sep 20 2021 2:33PM EST [id number] [facility] 09-13-2021 [facility] Telephone (Vuclip) -- NEHAL BAIG ([id number]) 1970 M Date Time Provider Department 09/13/21 ANH MENA During your visit today, we recorded the following information about you: Ninfa Jyotsna 09/13/2021 8:57 AM Signed MD Francisco Anguiano [address] Spec Pool 4-6 weeks with me. [...] Status:Closed by NINFA GOYAL on 11/06/21 Normal [facility] BLOOD BANKOrdered By: Darcie Medina on 08-23-2021 ABO/Rh Interp Negative Invalid Interpretation Code [facility] BB Subsection ABSC Gel Interp Negative (08/23/21 6:20 AM) Normal [facility] BB Subsection CHEMISTRYOrdered By: Lab ROP User on 08-23-2021 Glucose [Mass/Vol] 113 mg/dL High 55 - 99 mg/dL [facility] POC Subsection Comment on above: Result Comment: Jes lisandra Meter POC Device SN [id number] Invalid Interpretation Code [facility] POC Subsection POC User ID [id number] Invalid Interpretation Code [facility] POC Subsection POC Username KIMBERLEY ACKERMAN Invalid Interpretation Code [facility] POC Subsection URINALYSISOrdered By: Savannah Schneider on 08-23-2021 Bacteria LM Ql (Urine sed) Trace /HPF Normal Trace/HPF [facility] UA Auto SS Bilirubin Ql (U) Negative [...] AM) Normal Negative [facility] UA Auto SS [place].plasma/Lithi um.RBC (Bld) [Mass ratio] 0-3 /HPF Normal [...] [facility] UA Auto SS Urobilinogen Qn (U) [id number] {Sean'U}/dL Normal 0.0 - 1.0 EU/dL [facility] UA Auto SS WBC Auto Ql (U) Negative (08/23/21 7:36 AM) Normal Negative [facility] UA Auto SS WBC LM.HPF (Urine sed) [#/Area] 0-5 /HPF Normal 0-5/HPF [facility] UA Auto SS Melissa 08-15-2021 CNOV Office Visit ([facility] ) -- NEHAL BAIG ([id number]) 1970 M Date Time Provider Department 08/15/21 [...] weight gain: 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 Weight issues one year after divorce in [...] weight loss: Self-directed dieting Have you used bijf-yxh-bmcebck or prescribed weight loss medications? No Have you had a surgical procedure for weight loss? No No flowsheet data found. No flowsheet data found. ALLERGIES: ALLERGIES No Known Allergies CURRENT MEDICATIONS: atorvastatin (LIPITOR) 20 mg tablet Take 1 tablet by mouth daily at bedtime. l (more content not included)... Normal [facility] CNOVon 08-10-2021 CNOV Office Visit ([facility] ) -- ESSENCENEHAL GAN ([id number]) 1970 M Date Time Provider Department 08/10/21 9:40 AM [facility] During your visit today, we recorded the following information about you: Pulse Blood pressure Weight Height 73/minute 127/77 179.6 kg 1.854 m Salome Aguillon APRN.TRAP OPERATOR 08/10/2021 10:21 AM Signed This note was created using Fingoorooriter. Subjective Nehal Baig is a 50 year [...] 2020. This is a workers comp issue[facility] Cowan. 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 [...] Negative Negative Ketones, Urine Negative Negative Specific [place], Ur 1.005 - 1.030 1.025 Hemoglobin/Blood,Ur Negative [...] (H) Case Report Surgical Pathology Report Case: [id number] . . . FINAL DIAGNOSIS This result [...] Appearance: No (more content not included)... Normal [facility] BLOOD BANKOrdered By: Kat Salcedo on 08-08-2021 ABO/Rh Retype Interp Negative Invalid Interpretation Code [facility] BB Subsection CHEMISTRYOrdered By: SYSTEM SYSTEM on [...] rate/Area] mL/min/1.73 m2 Normal >=59mL/min /1.73 m2 [facility] Chem S GFR/1.73 sq M.predicted among non-blacks MDRD (S/P/Bld) [Vol rate/Area] mL/min/1.73 m2 Normal >=59mL/min /1.73 m2 [facility] Chem S Glucose [Mass/Vol] 103 mg/dL Normal [...] AM) Normal Negative [facility] UA Auto SS [place].plasma/Lithi um.RBC (Bld) [Mass ratio] 0-3 /HPF Normal [...] [facility] Auto SS Urobilinogen Qn (U) 0.5381955 {Sean'U}/dL Normal 0.0 - 1.0 EU/dL [facility] Auto SS WBC Auto Ql (U) Negative (08/08/21 10:04 AM) Normal Negative [facility] UA Auto SS WBC LM.HPF (Urine sed) [#/Area] 0-5 /HPF Normal 0-5/HPF [facility] Auto SS ANES POSTPROC EVALon 022 ANES POSTPROC EVAL HNO ID: [id number] Author: Lucy Flanagan MD Service: Anesthesiology Author Type: Anesthesiologist Type: Anesthesia Postprocedure Evaluation Filed: 07/31/2021 12:56 PM Note Text: POST ANESTHESIA EVALUATION NOTE : 1970 Procedure Summary Date: 07/31/21 Room / Location: [facility] Anesthesia Start: 1053 Anesthesia Stop: 1145 Procedure: COLONOSCOPY DIAGNOSTIC Diagnosis: Dark stools (OTHER) Scheduled Providers: Jayy Patel MD; Cori Ashley APRN.CARD PLACER; Lucy Flanagan MD Responsible Provider: Lucy Flanagan [...] July 31, 2021 TIME: 12:55 PM CSN: [id number] Normal [facility] ANES PRE-OPon 07-31-2021 ANES PRE-OP HNO ID: [id number] Author: Lucy Flanagan MD Service: Anesthesiology Author Type: Anesthesiologist Type: Anesthesia Preprocedure Evaluation Filed: 07/31/2021 9:50 AM Note Text: ANESTHESIOLOGY DAY OF SURGERY NOTE : 1970 Procedure Information Date/Time: 07/31/21 1030 Scheduled providers: Jayy Patel MD; Cori Ashley APRN.CARD PLACER; Lucy Flanagan MD Procedure: COLONOSCOPY DIAGNOSTIC Location: [facility]oscopy Estimated body mass index is [...] and consent discussed: yes. Patient / Responsible Alliance Party agrees to proceed: yes Patient / [...] July 31, 2021 TIME: 9:49 AM CSN: [id number] Normal [facility] COLONOSCOPY DIAGNOSTICon [facility] HISTORY PHYSICALon HISTORY PHYSICAL HNO ID: [id number] Author: Jayy Patel MD Service: General Surgery [...] DATE: July 31, 2021 TIME: 10:58 AM [facility] SURGICAL PATHOLOGYon 022 CASE REPORT Normal [facility] Comment on above: Order Comment: Speci sandra Type: TISSUE SPECIMEN Ordering Facility: [facility] Address: [address] [place] [address] Result Comment: Surg [facility] Pathology Report Case: [id number] Authorizing Provider: Jayy Patel MD Collected: 07/31/2021 11:31 AM Ordering Location: [facility] Received: 07/31/2021 02:15 PM Pathologist: Luis F Quiroz MD Specimen: SIGMOID COLON POLYP Performed By: #### S #### [facility] CLIA [id number] [address] [place] [address] FINAL DIAGNOSIS Normal [facility] Comment on above: Order Comment: Speci men Type: TISSUE SPECIMEN Ordering Facility: [facility] Address: [address] [place] [address] Result Comment: Sigm oid colon polyp, biopsy: - Tubular adenoma. JEL 08/01/2021 Performed By: #### S #### [facility] CLIA [id number] FINAL PERFORMING LAB Normal [facility] Comment on above: Order Comment: Speci men Type: TISSUE SPECIMEN Ordering Facility: [facility] Address: [address] [place] [address] Result Comment: Diag nostic interpretation performed at [facility], [address] [place] [address] CLIA# [id number] Electrical Line Worker: Nehal Cid M.D. Performed By: #### S #### [facility] CLIA [id number] [address] [place] [address] [place] GROSS DESCRIPTION Normal [facility] Comment on above: Order Comment: Speci men Type: TISSUE SPECIMEN Ordering Facility: [facility] Address: [address] [place] [address] Result Comment: A. S IGMOID COLON POLYP. Received in formalin are multiple pieces of kaufman, soft tissue aggregating to 1.8 x 0.3 x 0.2 cm. Totally submitted in one cassette. SS July 31, 2021 7:11 PM Gross examination performed at [facility], [address] [place] [address] Performed By: #### S #### [facility] CLIA [id number] [address] [place] [address] [place] CBC panel Auto (Bld)on 07-29 Erythrocyte distribution width (RBC) [Ratio] 12.5 % Normal 11.5-15.0 [facility] Comment on above: Order Comment: Speci men Type: URINE SPECIMEN Ordering Facility: [facility] Address: [address] [place] [address] Performed By: #### L [id number] #### [facility] CLIA [id number] [address] [place] [address] [place] Hematocrit (Bld) [Volume fraction] 39.4 % Normal 39.0-51.0 [facility] Comment on above: Order Comment: Speci men Type: URINE SPECIMEN Ordering Facility: [facility] Address: [address] [place] [address] Performed By: #### L [id number] #### [facility] CLIA [id number] [address] [place] [address] [place] Hemoglobin (Bld) [Mass/Vol] 13.6 g/dL Normal 13.0-17.0 [facility] Comment on above: Order Comment: Speci men Type: URINE SPECIMEN Ordering Facility: [facility] Address: [address] [place] [address] Performed By: #### L [id number] #### [facility] CLIA [id number] [address] [place] [address] [place] MCH (RBC) [Entitic mass] 29.3 pg Normal 26.0-34.0 [facility] Comment on above: Order Comment: Speci men Type: URINE SPECIMEN Ordering Facility: [facility] Address: [address] [place] [address] Performed By: #### L [id number] #### [facility] CLIA [id number] [address] [place] [address] [place] [facility] MCHC (RBC) [Mass/Vol] 34.5 g/dL Normal 30.5-36.0 [facility] Comment on above: Order Comment: Speci men Type: URINE SPECIMEN Ordering Facility: [facility] Address: [address] [place] [address] Performed By: #### L [id number] #### [facility] CLIA [id number] [address] [place] [address] [place] MCV (RBC) [Entitic vol] 84.9 fL Normal 80.0-100.0 [facility] Comment on above: Order Comment: Speci men Type: URINE SPECIMEN Ordering Facility: [facility] Address: [address] [place] [address] Performed By: #### L [id number] #### [facility] CLIA [id number] [address] [place] [address] [place] Nucleated RBC (Bld) [#/Vol] 10*3/uL Normal <0.01 [facility] Comment on above: Order Comment: Speci men Type: URINE SPECIMEN Ordering Facility: [facility] Address: [address] [place] [address] Performed By: #### L [id number] #### [facility] CLIA [id number] [address] [place] [address] [place] Platelet mean volume (Bld) [Entitic vol] 9.9 fL Normal 9.0-12.7 [facility] Comment on above: Order Comment: Speci men Type: URINE SPECIMEN Ordering Facility: [facility] Address: [address] [place] [address] Performed By: #### L [id number] #### [facility] CLIA [id number] [address] [place] [address] [place] Platelets (Bld) [#/Vol] 187 10*3/uL Normal 150-400 [facility] Comment on above: Order Comment: Speci men Type: URINE SPECIMEN Ordering Facility: [facility] Address: [address] [place] [address] Performed By: #### L [id number] #### [facility] CLIA [id number] [address] [place] [address] [place] RBC (Bld) [#/Vol] 4.64 10*6/uL Normal 4.20-6.00 [facility] Comment on above: Order Comment: Speci men Type: URINE SPECIMEN Ordering Facility: [facility] Address: [address] [place], [place] [address] Performed By: #### L [id number] #### [facility] CLIA [id number] [address] [place] [address] [place] WBC (Bld) [#/Vol] 5.29 10*3/uL Normal 3.70-11.00 [facility] Comment on above: Order Comment: Speci men Type: URINE SPECIMEN Ordering Facility: [facility] Address: [address] [place], [place] [address] Performed By: #### L [id number] #### [facility] CLIA [id number] [facility] [place] [id number] [place] [facility] Comprehensive metabolic 2000 panelon 07-29-2021 Albumin [Mass/Vol] 4.6 g/dL Normal 3.9-4.9 [facility] Comment on above: Order Comment: Speci men Type: BLOOD SPECIMENOrdering Facility: [facility] Address: [address] [place] [address] Performed By: #### L KIERRAB, 33876-2 ####[facility] [id number] [place] [id number] [place] ALP [Catalytic activity/Vol] 80 U/L Normal 38-113 [facility] Comment on above: Order Comment: Speci men Type: BLOOD SPECIMENOrdering Facility: [facility] Address: [address] [place] [address] Performed By: #### L KIERRAB, 26672-3 ####[facility] [id number] [address] [place] ALT [Catalytic activity/Vol] 58 U/L High 10-54 [facility] Comment on above: Order Comment: Speci men Type: BLOOD SPECIMENOrdering Facility: [facility] Address: [address] [place] [address] Performed By: #### L KIERRAB, 06448-8 ####[facility] [id number] [place] [id number] [place] Anion gap [Moles/Vol] 7 mmol/L Low 9-18 [facility] Comment on above: Order Comment: Speci men Type: BLOOD SPECIMENOrdering Facility: [facility] Address: [address] [place] [address] Performed By: #### L IPB, 96683-0 ####[facility] [id number] [place] [address] [place] AST [Catalytic activity/Vol] 39 U/L Normal 14-40 [facility] Comment on above: Order Comment: Speci men Type: BLOOD SPECIMENOrdering Facility: [facility] Address: [address] [place], [place] [address] Performed By: #### L KIERRAB, 75163-5 ####[facility] [id number] [place] [address] [place] Bilirubin [Mass/Vol] 0.4 mg/dL Normal 0.2-1.3 [facility] Comment on above: Order Comment: Speci men Type: BLOOD SPECIMENOrdering Facility: [facility] Address: [address] [place], [place] [address] Performed By: #### L KIERRAB, 95392-0 ####[facility] [id number] [place] [address] [place] Calcium [Mass/Vol] 9.8 mg/dL Normal 8.5-10.2 [facility] Comment on above: Order Comment: Speci men Type: BLOOD SPECIMENOrdering Facility: [facility] Address: [address] [place], [place] [address] Performed By: #### L FILIPE, 90239-7 ####[facility] [id number] [place] [address] [place] Chloride [Moles/Vol] 104 mmol/L Normal 97-105 [facility] Comment on above: Order Comment: Speci men Type: BLOOD SPECIMENOrdering Facility: [facility] Address: [address] [place], [place] [address] Performed By: #### L IPB, 83609-7 ####[facility] [id number] [place] [id number] [place] CO2 [Moles/Vol] 28 mmol/L Normal 22-30 [facility] Comment on above: Order Comment: Speci men Type: BLOOD SPECIMENOrdering Facility: [facility] Address: [address] [place], [place] [address] Performed By: #### L IPB, 82275-0 ####[facility] [id number] [place] [address] [place] [facility] Creatinine [Mass/Vol] 0.98 mg/dL Normal 0.73-1.22 [facility] Comment on above: Order Comment: Tessa flores Type: BLOOD SPECIMENOrdering Facility: [facility] Address: [address] [place] [address] Performed By: #### L IPB, 08779-2 ####[facility] LABIA [id number] [place] [phone] [facility] ESTIMATED GLOMERULAR FILTRATION RATE 95 mL/min/1.73m??? Normal >=60 [facility] Comment on above: Order Comment: Tessa flores Type: BLOOD SPECIMENOrdering Facility: [facility] Address: [address] [place] [address] Result Comment: Halle mated Glomerular Filtration Rate [...] actual GFR. Performed By: #### L IPB, 79383-9 ####[facility] [id number] [place] [id number] [place] Glucose [Mass/Vol] 120 mg/dL High 74-99 [facility] Comment on above: Order Comment: Tessa flores Type: BLOOD SPECIMENOrdering Facility: [facility] Address: [address] [place] [address] Result Comment: The [place] Diabetes Association (ADA) provides guidance for cutoff [...] Standards of Medical Care in Diabetes 2016, [place] Diabetes Association. Diabetes Care. 2016.39(Suppl 1). Performed By: #### L KIERRAB, 48747-3 ####[facility] [id number] [place] [phone] [place] Potassium [Moles/Vol] 4.7 mmol/L Normal 3.7-5.1 [facility] Comment on above: Order Comment: Speci men Type: BLOOD SPECIMENOrdering Facility: [facility] Address: [address] [place] [address] Performed By: #### L KIERRAB, 08920-5 ####[facility] [id number] [place] [phone] [place] Protein [Mass/Vol] 7.6 g/dL Normal 6.3-8.0 [facility] Comment on above: Order Comment: Speci men Type: BLOOD SPECIMENOrdering Facility: [facility] Address: [address] [place] [address] Performed By: #### L FILIPE, 66124-6 ####[facility] [id number] [place] [phone] [place] Sodium [Moles/Vol] 139 mmol/L Normal 136-144 [facility] Comment on above: Order Comment: Speci men Type: BLOOD SPECIMENOrdering Facility: [facility] Address: [address] [place] [address] Performed By: #### L FILIPE, 39590-9 ####[facility] [id number] [place] [phone] [place] Urea nitrogen [Mass/Vol] 18 mg/dL Normal 9-24 [facility] Comment on above: Order Comment: Speci men Type: BLOOD SPECIMENOrdering Facility: [facility] Address: [address] [place] [address] Performed By: #### L FILIPE, 82879-7 ####[facility] [id number] [place] [phone] [facility] HGB A1Con 07-29-2021 Average glucose Estimated from glycated hemoglobin (Bld) [Mass/Vol] 117 mg/dL Normal [facility] Comment on above: Order Comment: Tessa men Type: BLOOD SPECIMENOrdering Facility: [facility] Address: [address] [place] [address] Result Comment: eAG: (Estimated average glucose) is a calculated value from HgbA1c and is public relations representative of the average blood glucose level in the last 2-3 month period. Performed By: #### H DEVORA1C ####[facility] [id number] [address] STATES [facility] HbA1c (Bld) [Mass fraction] 5.7 % High 4.3-5.6 [facility] Comment on above: Order Comment: Tessa flores Type: BLOOD SPECIMENOrdering Facility: [facility] Address: [address] [place] [address] Result Comment: [place] Diabetes Association guidelines indicate that patients with HgbA1c in the range 5.7-6.4% are at increased risk for development of diabetes, and intervention by lifestyle modification may be beneficial. HgbA1c greater or equal to 6.5% is considered diagnostic of diabetes. Performed By: #### H BA1C ####[facility] [id number] [place] [phone] [facility] [place] LIPID PANEL BASICon 07-30-19 22 Cholesterol [Mass/Vol] 240 mg/dL High <200 [facility] Comment on above: Order Comment: Tessa flores Type: BLOOD SPECIMENOrdering Facility: [facility] Address: [address] [place] [address] Result Comment: <200 mg/dL, Desirable 200-239 mg/dL, Borderline high >239 mg/dL, High Performed By: #### L KIERRAB, 73309-1 ####[facility]IA [id number] [place] [address] [facility] Cholesterol in HDL [Mass/Vol] 37 mg/dL Low >39 [facility] Comment on above: Order Comment: Tessa flores Type: BLOOD SPECIMENOrdering Facility: [facility] Address: [address] [place] [address] Result Comment: 40-5 9 mg/dL, Acceptable >59 mg/dL, High: Negative risk factor for coronary heart disease <40 mg/dL, Low: Positive risk factor for coronary heart disease Performed By: #### L KIERRAB, 88923-4 ####[facility] [id number] [place] [phone] [facility] Cholesterol in LDL [Mass/Vol] 175 mg/dL High <100 [facility] Comment on above: Order Comment: Tessa flores Type: BLOOD SPECIMENOrdering Facility: [facility] Address: [address] [place] [address] Result Comment: <100 mg/dL, Optimal 100-129 mg/dL, Near optimal/above optimal 130-159 mg/dL, Borderline high 160-189 mg/dL, High >189 mg/dL, Very high Secondary prevention optimal LDL Cholesterol levels are recommended to be < 70 mg/dL Performed By: #### L IPB, 30391-9 ####[facility] [id number] [place] [phone] [facility] Cholesterol in LDL/Cholesterol in HDL [Mass ratio] 4.73 {ratio} High <2.54 [facility] Comment on above: Order Comment: Tessa sandra Type: BLOOD SPECIMENOrdering Facility: [facility] Address: [address] [place] [address] Result Comment: Doris tucker: 1. National Cholesterol Education Program ATP III Guideline At-A-Glance Quick Desk Reference: National Heart, Lung, and Blood [place]. National Institutes of Health. 2001: NIH Publication No. 01-3305. 2. An International Atherosclerosis Society position paper: global recommendations for the management of dyslipidemia: executive summary, Atherosclerosis. 2014: 232(2):410-413. Performed By: #### Natalie DENT, 34186-1 ####[facility] [id number] [place] [address] [place] Cholesterol in VLDL [Mass/Vol] 28 mg/dL Normal <30 [facility] Comment on above: Order Comment: Speci men Type: BLOOD SPECIMENOrdering Facility: [facility] Address: [address] [place] [address] Performed By: #### Natalie DENT, 60307-8 ####[facility] [id number] [place] [phone] [place] Cholesterol non HDL [Mass/Vol] 203 mg/dL High <130 [facility] Comment on above: Order Comment: Speci men Type: BLOOD SPECIMENOrdering Facility: [facility] Address: [address] [place] [address] Result Comment: <130 mg/dL, Optimal 130-159 mg/dL, Near optimal/above optimal 160-189 mg/dL, Borderline high 190-219 mg/dL, High >219 mg/dL, Very high Secondary prevention optimal non HDL Cholesterol levels are recommended to be <100 mg/dL Performed By: #### L FILIPE, 10566-4 ####[facility] [id number] [place] [address] [place] Cholesterol.total/Ch olesterol in HDL [Mass ratio] 6.49 {ratio} High <5.10 [facility] Comment on above: Order Comment: Speci men Type: BLOOD SPECIMENOrdering Facility: [facility] Address: [address] [place] [address] Performed By: #### L FILIPE, 87523-2 ####[facility] [id number] [place] [phone] [facility] FASTING TIME 12. hrs Normal [facility] Comment on above: Order Comment: Speci men Type: BLOOD SPECIMENOrdering Facility: [facility] Address: [address] [place] [address] Performed By: #### L IPB, 01114-0 ####[facility]CLIA [id number] [place] [address] [place] [facility] Triglyceride [Mass/Vol] 140 mg/dL Normal <150 [facility] Comment on above: Order Comment: Speci men Type: BLOOD SPECIMENOrdering Facility: [facility] Address: [address] [place], [place] [address] Result Comment: <150 mg/dL, Normal 150-199 mg/dL, Borderline high 200-499 mg/dL, High >499 mg/dL, Very high Performed By: #### L IPB, 62078-7 ####[facility] [facility] [id number] [place] [address] [place] PSA/PROSTSPECAG SCRNon 07-29 Prostate specific Ag [Mass/Vol] 0.41 ng/mL Normal <2.60 [facility] Comment on above: Order Comment: Speci men Type: BLOOD SPECIMENOrdering Facility: [facility] Address: [address] [place] [address] Result Comment: Tota l PSA test methodology used is the Electrochemiluminescence Immunoassay by [employer]. Total PSA values by differing methodologies cannot be interchanged. Performed By: #### P SAS1 ####[facility] [id number] [place] [address] [place] TSH SerPl-aCncon 07-29-2021 TSH Qn 4.060 m[IU]/L Normal 0.270-4.20 0 [facility] Comment on above: Order Comment: Speci men Type: BLOOD SPECIMENOrdering Facility: [facility] Address: [address] [place], [place] [address] Performed By: #### 3 016-3 ####[facility] [id number] [place] [address] [place] URINALYSIS, REFLEX MICROSCOP ICon 07-29-2021 Bilirubin Ql (U) Negative Normal Negative [facility] Comment on above: Order Comment: Speci men Type: URINE SPECIMEN [facility]ing Facility[facility] Address: [address] [address] Performed By: #### L [id number] #### [facility] CLIA [id number] [address] [place] [address] [place] Clarity (Unsp spec) Clear Normal Clear [facility] Comment on above: Order Comment: Speci men Type: URINE SPECIMEN [facility]ing Facility[facility] Address: [address] [place] [address] Performed By: #### L [id number] #### [facility] CLIA [id number] [address] [place] [address] [place] Color (U) Yellow Normal Yellow [facility] Comment on above: Order Comment: Speci men Type: URINE SPECIMEN [facility]ing Facility[facility] Address: [address] [place] [address] Performed By: #### L [id number] #### [facility] CLIA [id number] [address] [place] [address] [place] Glucose Test strip (U) [Mass/Vol] Negative Normal Negative [facility] Comment on above: Order Comment: Speci men Type: URINE SPECIMEN [facility]ing [facility] Address: [address] [place] [address] Performed By: #### L [id number] #### [facility] CLIA [id number] [address] [place] [address] [place] Hemoglobin Ql (U) Negative Normal Negative [facility] Comment on above: Order Comment: Speci men Type: URINE SPECIMEN [facility]ing [facility] Address: [address] [place] [address] Performed By: #### L [id number] #### [facility] CLIA [id number] [address] [place] [address] [place] Ketones Ql (U) Negative Normal Negative [facility] Comment on above: Order Comment: Speci men Type: URINE SPECIMEN [facility]ing [facility] Address: [address] [place] [address] Performed By: #### L [id number] #### [facility] CLIA [id number] [address] [place] [address] [place] [facility] Leukocyte esterase Test strip Ql (U) Negative Normal Negative [facility] Comment on above: Order Comment: Speci men Type: URINE SPECIMEN [facility]ing [facility] Address: [address] [place] [address] Performed By: #### L [id number] #### [facility] CLIA [id number] [address] [place] [address] [place] Nitrite Ql (U) Negative Normal Negative [facility] Comment on above: Order Comment: Speci men Type: URINE SPECIMEN [facility]ing [facility] Address: [address] [place] [address] Performed By: #### L [id number] #### [facility] CLIA [id number] [address] [place] [address] [place] pH (U) 5.5 [pH] Normal 5.0-8.0 [facility] Comment on above: Order Comment: Speci men Type: URINE SPECIMEN [facility]ing [facility] Address: [address] [place] [address] Performed By: #### L [id number] #### [facility] CLIA [id number] [address] [place] [address] [place] Protein (U) [Mass/Vol] Negative Normal Negative [facility] Comment on above: Order Comment: Speci men Type: URINE SPECIMEN [facility] Address: [address] [place] [address] Performed By: #### L [id number] #### [facility] CLIA [id number] [address] [place] [address] [place] Specific gravity (U) [Rel density] 1.025 Normal 1.005-1.03 0 [facility] Comment on above: Order Comment: Speci men Type: URINE SPECIMEN [facility] Address: [address] [place] [address] Performed By: #### L [id number] #### [facility] CLIA [id number] [address] [place] [address] Urobilinogen Ql (U) 0.2 EU/dL Normal 0.2-1.0 EU/dL [facility] Comment on above: Order Comment: Speci men Type: URINE SPECIMEN [facility]ing [facility] Address: [address] [place] [address] Performed By: #### L [id number] #### [facility] CLIA [id number] [address] [place] [address] OF [facility] VITAMIN D 25 HYDROXYon 07-29 25-hydroxyvitamin D3 [Mass/Vol] 29.1 ng/mL Low 31.0-80.0 [facility] Comment on above: Order Comment: Speci men Type: BLOOD SPECIMENOrdering Facility: [facility] Address: [address] [place] [address] Result Comment: Clas sification of 25 [place] Vitamin D status: Deficiency/Insufficiency: < or = 30 ng/ml. Sufficiency/Optimal Levels: 31-80 ng/mL Toxicity: > 100 ng/mL. Test performed by chemiluminescent immunoassay. Performed By: #### V ITD ####[facility] [id number] [address] [place] HISTORY PHYSICALon HISTORY PHYSICAL HNO ID: [id number] Author: Prisca Van PA-C Service: ? Author Type: Physician Gang Miner Type: HANDP Filed: 07/26/2021 1:52 PM Note Text: [facility] This is a virtual visit. It required patient-provider interaction for the medical decision making as documented below. Patient has been identified by name and date of : Yes Reason for call: PACC visit Accompanied by: Self Patient name: Nehal Baig Scheduled Surgery: colonoscopy 07/31/2021 at [facility] CHIEF COMPLAINT: Patient presents with: Outpatient Colonoscopy [...] fevers. Neuro: No history of TIA's, stroke, HAIR ASSISTANT tumor, impaired sensorium, hemiplegia, paraplegia or quadraplegia. No neurological symptoms or problems. Respiratory: No history of current cough or dyspnea, or pneumonia in the past 6 weeks. +asthma-uses Flovent daily, albuterol 3-5 times/week +JACOBY- BiPAP nightly +lung nodules Cardiovascular: No history of angina, CHF, [place], cardiac surgery or stents. Denies rest pain, [...] carotid puls (more content not included)... Normal [facility] CNOVon 07-25-2021 CNOV Office Visit ([facility] -- NEHAL BAIG ([id number]) 1970 M Date Time Provider Department 07/25/21 9:20 AM SALOME AGUILLONILMICHAELA During your visit today, we recorded the following information about you: Pulse Blood pressure Weight Height 88/minute 136/78 182.3 kg 1.854 m Salome Aguillon APRN.TRAP OPERATOR 07/25/2021 5:32 PM Signed This note was created using [employer]. Subjective Nehal Baig is a 50 year [...] further at follow-up Salome Aguillon APRN.LEODAN Aguillon APRN.TRAP OPERATOR 07/25/2021 9:43 AM Signed Bowel Preparation Instructions for: Golytely, Nulytely, Trilyte or Coly (more content not included)... [facility] NEHAL BAIG ([id number]) 1970 M Date Time Provider Department 07/25/21 SALOME AGUILLON [facility] During your visit today, we recorded the following information about you: Beatriz Cowan 07/25/2021 11:22 AM Signed [facility] states the Golytely is on backorder. They have the Newlytely in stock. Is it OK to substitute? Please advise. [phone]. Beatriz Cowan July 25, 2021 11:22 AM Salome Aguillon APRN.TRAP OPERATOR 07/25/2021 12:05 PM Signed Kj Cruz -pt [...] Date Reviewed: 07/25/2021 Reviewed by: Salome Aguillon APRN.TRAP OPERATOR - Fully Assessed Reason for Visit: Medication [...] Status:Closed by SALOME AGUILLON on 07/25/21 Normal [facility] CT CHEST WO IVCONon 15-20 21 Radiology Result ACTIONABLE Abnormal [facility] Basic Metab w/rfx MGon 08-02 (cont.) Normal [facility] Comment on above: Result Comment: Aver age GFR for 40-49 years old: 99 mL/min/1.73sq m Chronic Kidney Disease: <60 mL/min/1.73sq m Kidney failure: <15 mL/min/1.73sq m eGFR calculated using average adult body mass. Additional eGFR calculator available at: http://www.Keduo/multiple_crcl_2012.htm Performed By: #### C AXEL, BMPX ####[facility] [address] [place] [address] Lab Director: Nate Stafford MD Anion gap [Moles/Vol] 11 mmol/L Normal 9-17 [facility] Comment on above: Performed By: #### C BC, BMPX ####[facility] [address] [place], [place] [phone] Director: Nate Stafford MD Calcium [Mass/Vol] 8.5 mg/dL Low 8.6-10.4 [facility] Comment on above: Performed By: #### C BC, BMPX ####[facility] [address] [place], [place] [phone] Director: Nate Stafford MD Chloride [Moles/Vol] 101 mmol/L Normal 98-107 [facility] Comment on above: Performed By: #### C BC, BMPX ####[facility] [address] [place], [place] [phone] Director: Nate Stafford MD CO2 [Moles/Vol] 23 mmol/L Normal 20-31 [facility] Comment on above: Performed By: #### C BC, BMPX ####[facility] [address] [place] [address] Lab Director: Nate Stafford MD Creatinine [Mass/Vol] 0.62 mg/dL Low 0.70-1.20 [facility] Comment on above: Performed By: #### C BC, BMPX ####[facility] [address] [place] [address] Lab Director: Nate Stafford MD GFR, Amer >60 Normal >60 [facility] Comment on above: Performed By: #### C BC, BMPX ####[facility] [address] [place], [place] [phone] Director: Nate Stafford MD GFR,non Amer >60 Normal >60 [facility] Comment on above: Performed By: #### C BC, BMPX ####[facility] [address] [place], [place] [phone] Director: Nate Stafford MD Glucose [Mass/Vol] 120 mg/dL High 70-99 [facility] Comment on above: Performed By: #### C BC, BMPX ####[facility] [address] [place], [place] [phone] Director: Nate Stafford MD Potassium [Moles/Vol] 4.3 mmol/L Normal 3.7-5.3 [facility] Comment on above: Performed By: #### C BC, BMPX ####[facility] [address] [place], [place] [phone] Director: Nate Stafford MD Sodium [Moles/Vol] 135 mmol/L Normal 135-144 [facility] Comment on above: Performed By: #### C BC, BMPX ####[facility] [address] [place], [place] [phone] Lab Director: Nate Stafford MD Urea nitrogen [Mass/Vol] 14 mg/dL Normal 6-20 [facility] Comment on above: Performed By: #### C BC, BMPX ####[facility] [address] [place] [address] Lab Director: Nate Stafford MD BUN/CRE Ratio NOT REPORTED Normal -20 [facility] Comment on above: Performed By: #### C BC, BMPX ####[facility] [address] [place] [address] Lab Director: Nate Stafford MD Staging: NOT REPORTED Normal [facility] Comment on above: Performed By: #### C BC, BMPX ####[facility] [address] [place], [place] [phone] lab Director: Nate Stafford MD Basic Metabolic Panel w/ Ref johnny to MGOrdered By: Halina Pathak on 08-02-2020 Anion gap [Moles/Vol] 11 mmol/L 9 - 17 mmol/L [email or web address] Phone: Calcium [Mass/Vol] 8.5 mg/dL Low 8.6 - 10. 4 mg/dL [email or web address] Phone: Chloride [Moles/Vol] 101 mmol/L 98 - 10 7 mmol/L [email or web address] Phone: CO2 [Moles/Vol] 23 mmol/L 20 - 31 mmol/L [email or web address] Phone: Creatinine [Mass/Vol] 0.62 mg/dL Low 0.70 - 1.20 mg/dL [email or web address] Phone: GFR >60 >60 mL/min [place] Phone: GFR Non- >60 >60 mL/min [email or web address] Phone: GFR/1.73 sq M.predicted MDRD (S/P/Bld) [Vol rate/Area] [email or web address] Phone: Comment on above: Average GFR for 40-4 9 years old: 99 mL/min/1.73sq m Chronic Kidney Disease: <60 mL/min/1.73sq m Kidney failure: <15 mL/min/1.73sq m eGFR calculated using average adult body mass. Additional eGFR calculator available at: http://www.Keduo/multiple_crcl_2012.htm GFR/1.73 sq M.predicted MDRD (S/P/Bld) [Vol rate/Area] NOT REPORTED [email or web address] Phone: Glucose [Mass/Vol] 120 mg/dL High 70 - 99 mg/dL [email or web address] Phone: Interpretation and review of laboratory results Abnormal [email or web address] Phone: Potassium [Moles/Vol] 4.3 mmol/L 3.7 - 5.3 mmol/L [email or web address] Phone: Sodium [Moles/Vol] 135 mmol/L 135 - 144 mmol/L [email or web address] Phone: Urea nitrogen (BldV) [Mass/Vol] 14 mg/dL 6 - 20 mg/dL [email or web address] Phone: Urea nitrogen/Creatinine (Bld) [Mass ratio] NOT REPORTED [email or web address] Phone: CBCon 08-02-2020 Erythrocyte distribution width (RBC) [Ratio] 13.0 % Normal 11.8-14.4 [facility] Comment on above: Performed By: #### C BC BMPX ####[employer] [address] [place], [place] [phone] lab Director: Nate Stafford MD Hematocrit (Bld) [Volume fraction] 41.8 % Normal 40.7-50.3 [facility] Comment on above: Performed By: #### C AXEL BMPX ####[employer] [address] [place] [address] Lab Director: Nate Stafford MD Hemoglobin (Bld) [Mass/Vol] 13.8 g/dL Normal 13.0-17.0 [facility] Comment on above: Performed By: #### C BC, BMPX ####[facility] [address] [place], [place] [phone] Director: Nate Stafford MD MCH (RBC) [Entitic mass] 29.3 pg Normal 25.2-33.5 [facility] Comment on above: Performed By: #### C BC, BMPX ####[facility] [address] [place] [address] Lab Director: Nate Stafford MD MCHC (RBC) [Mass/Vol] 33.0 g/dL Normal 28.4-34.8 [facility] Comment on above: Performed By: #### C BC, BMPX ####[facility] [address] [place] [address] [phone] Director: Nate Stafford MD MCV (RBC) [Entitic vol] 88.7 fL Normal 82.6-102.9 [facility] Comment on above: Performed By: #### C BC, BMPX ####[facility] [address] [place] [address] Lab Director: Nate Stafford MD NRBC Automated 0.0 per 100 WBC Normal 0.0 [facility] Comment on above: Performed By: #### C BC, BMPX ####[facility] [address] [place], [place] [phone] Director: Nate Stafford MD Platelet mean volume (Bld) [Entitic vol] 10.9 fL Normal 8.1-13.5 [facility] Comment on above: Performed By: #### C BC, BMPX ####[facility] [address] [place] [address] Lab Director: Nate Stafford MD Platelets (Bld) [#/Vol] 221 10*3/uL Normal 138-453 [facility] Comment on above: Performed By: #### C BC, BMPX ####[facility] [address] [place] [address] lab Director: Nate Stafford MD RBC (Bld) [#/Vol] 4.71 10*6/uL Normal 4.21-5.77 [facility] Comment on above: Performed By: #### C BC, BMPX ####[facility] [address] [place] [address] lab Director: Nate Stafford MD WBC (Bld) [#/Vol] 10.6 10*3/uL Normal 3.5-11.3 [facility] Comment on above: Performed By: #### C BC, BMPX ####[facility] [address] [place] [address] Lab Director: Nate Stafford MD CBCOrdered By: Halina Pathak on 08-02-2020 Hematocrit (Bld) [Volume fraction] 41.8 % 40.7 - 50.3 % [email or web address] Phone: Hemoglobin.gastroint estinal spec 1 Ql (Stl) 13.8 g/dL 13.0 - 17.0 g/dL [email or web address] Phone: MCH (RBC) [Entitic mass] 29.3 pg 25.2 - 33.5 pg [email or web address] Phone: MCHC (RBC) [Mass/Vol] 33.0 g/dL 28.4 - 34.8 g/dL [email or web address] Phone: MCV (RBC) [Entitic vol] 88.7 fL 82.6 - 102.9 fL [email or web address] Phone: NRBC Automated 0.0 0.0 per 100 WBC [email or web address] Phone: Platelet distribution width (Bld) [Ratio] 13.0 % 11.8 - 14.4 % [email or web address] Phone: Platelet mean volume (Bld) [Entitic vol] 10.9 fL 8.1 - 13.5 fL [email or web address] Phone: Platelets (Bld) [#/Vol] 221 10*3/uL [email or web address] Phone: RBC (Bld) [#/Vol] 4.71 10*6/uL 4.21 - 5.77 m/uL [email or web address] Phone: WBC (Bld) [#/Vol] 10.6 10*3/uL [email or web address] Phone: Trauma Profileon 08-02-2020 (cont.) Normal [facility] Comment on above: Result Comment: Aver age GFR for 40-49 years old: 99 mL/min/1.73sq m Chronic Kidney Disease: <60 mL/min/1.73sq m Kidney failure: <15 mL/min/1.73sq m eGFR calculated using average adult body mass. Additional eGFR calculator available at: http://www.Keduo/multiple_crcl_2012.htm Performed By: #### E RTPF, TROPI ####[facility] [address] [place] [address] Lab Director: Nate Stafford MD Anion gap [Moles/Vol] 10 mmol/L Normal 9-17 [facility] Comment on above: Performed By: #### E RTPF, TROPI ####[facility] [address] [place] [address] Lab Director: Nate Stafford MD Chloride [Moles/Vol] 100 mmol/L Normal 98-107 [facility] Comment on above: Performed By: #### E RTPF, TROPI ####[facility] [address] [place] [address] Lab Director: Nate Stafford MD CO2 [Moles/Vol] 24 mmol/L Normal 20-31 [facility] Comment on above: Performed By: #### E RTPF, TROPI ####[facility] [address] [place] [address] Lab Director: Nate Stafford MD Creatinine [Mass/Vol] 0.71 mg/dL Normal 0.70-1.20 [facility] Comment on above: Performed By: #### E RTPF, TROPI ####[facility] [address] [place], [place] [phone] Director: Nate Stafford MD Ethanol [Mass/Vol] mg/dL Normal <10 [facility] Comment on above: Performed By: #### E RTPF, TROPI ####[facility] [address] [place] [address])[phone] Director: Nate Stafford MD Ethanol percent <0.010 Normal <0.010 [facility] Comment on above: Performed By: #### E RTPF, TROPI ####[facility] [address] [place], [place] [phone] Director: Nate Stafford MD GFR, Amer >60 Normal >60 [facility] Comment on above: Performed By: #### E RTPF, TROPI ####[facility] [address] [place], [place] [phone] Director: Nate Stafford MD GFR,non Amer >60 Normal >60 [facility] Comment on above: Performed By: #### E RTPF, TROPI ####[facility] [address] [place], [place] [phone] Director: Nate Stafford MD Glucose [Mass/Vol] 109 mg/dL High 70-99 [facility] Comment on above: Performed By: #### E RTPF, TROPI ####[facility] [address] [place], [place] [phone] Director: Nate Stafford MD Potassium [Moles/Vol] 4.2 mmol/L Normal 3.7-5.3 [facility] Comment on above: Performed By: #### E RTPF, TROPI ####[facility] [address] [place], [place] [phone] Director: Nate Stafford MD Sodium [Moles/Vol] 134 mmol/L Low 135-144 [facility] Comment on above: Performed By: #### E RTPAlanna TROPI ####[facility] [address] [place] [address] Lab Director: Nate Stafford MD Urea nitrogen [Mass/Vol] 15 mg/dL Normal 6-20 [facility] Comment on above: Performed By: #### E RTPF TROPI ####[facility] [address] [place], [place] [phone] Director: Nate Stafford MD Troponinon 08-02-2020 Troponin, High Sens 6 ng/L Normal 0-22 [facility] Comment on above: Result Comment: High Sensitivity Troponin values cannot be compared with other Troponin methodologies. Patients with high levels of Biotin oral intake (i.e >5mg/day) may have falsely decreased Troponin levels. Samples collected within 8 hours of biotin intake may require additional information for diagnosis. Performed By: #### E RTPF, TROPI ####[facility] [address] [place], [place] [phone] Director: Nate Stafford MD Type + Screenon 08-02-2020 Type + Screen Sample Expiration 08/04/2020,2359 Arm Band Number BE [id number] ABO/Rh(D) A NEGATIVE Antibody Screen NEGATIVE Normal [facility] Comment on above: Performed By: #### T YS ####[facility] [address] [place] [address] lab Director: Nate Stafford MD CT CERVICAL [...] Johnny Smalls MD 08/01/20 Final result Normal [facility] CT CERVICAL SPINE WO CONTRAS TOrdered By: Ronnie Lund on 08-01-2020 C6-7 cervical spondy losis and degenerative disc disease. Evidence of paracervical spasm. No acute bony abnormalities are noted [employer] Work Phone: EXAMINATION: CT OF T HE [...] intact. The visualized lung apices are clear. [employer] Work Phone: [place], [place] Incoming R adiant Results From [employer] - 08/01/2020 7:04 PM EDT EXAMINATION: CT [...] spasm. No acute bony abnormalities are noted [email or web address] Phone: CT CHEST ABDOMEN PELVIS W CO [...] Elizabeth Shoemaker MD 08/01/20 Final result Normal [facility] CT CHEST ABDOMEN PELVIS W CO NTRASTOrdered [...] to Lung-RADS guidelines. Reference: Radiology. 2017; 284(1):228-43. [email or web address] Phone: EXAMINATION: CT OF T HE CHEST, [...] hernia. Bones/Soft Tissues: No acute osseous abnormality. [employer] Work Phone: Francisco, Mhpn Incoming R adiant Results From [employer] - 08/01/2020 7:19 PM EDT EXAMINATION: CT [...] to Lung-RADS guidelines. Reference: Radiology. 2017; 284(1):228-43. [email or web address] Phone: CT HEAD WO CONTRASTon 2020 CT [...] Jarek Fernández MD 08/01/20 Final result Normal [facility] CT Head WO ContrastOrdered B y: Ronnie Lund on 08-01-2020 1. No acute intracra nial abnormality. [email or web address] Phone: EXAMINATION: CT OF T HE HEAD [...] clear. SOFT TISSUES/SKULL: The calvarium is intact. [email or web address] Phone: [place], Mhpn Incoming R adiant Results From [employer] - 08/01/2020 7:01 PM EDT EXAMINATION: CT [...] intact. IMPRESSION: 1. No acute intracranial abnormality. [email or web address] Phone: CT LUMBAR SPINE TRAUMA RECON STRUCTIONon [...] Johnny Smalls MD 08/01/20 Final result Normal [facility] CT THORACIC SPINE TRAUMA REC ONSTRUCTIONon 08-01-2020 [...] Johnny Smalls MD 08/01/20 Final result Normal [facility] Drug Scr, Abuse, Uron 2020 Amphetamine(s),Ur Negative Normal NEG [facility] Comment on above: Result Comment: (Positive cutoff 1000 ng/mL) Performed By: #### U AMIC, LOUIS #### [facility] F?rsat Bu F?rsat [address] [place] [address] Middleware Systems Architect: Nate Stafford MD Barbiturate(s),Ur Negative Normal NEG [facility] Comment on above: Result Comment: (Positive cutoff 200 ng/mL) Performed By: #### U AMIC, LOUIS #### [facility] F?rsat Bu F?rsat [address] [place] [address] Middleware Systems Architect: Nate Stafford MD Benzodiazepine(s) Negative Normal NEG [facility] Comment on above: Result Comment: (Positive cutoff 200 ng/mL) Performed By: #### U AMIC, LOUIS #### [facility] [address] [place] [address] Middleware Systems Architect: Nate Stafford MD Cannabinoid(s),Ur Negative Normal NEG [facility] Comment on above: Result Comment: (Positive cutoff 50 ng/mL) Performed By: #### U AMIC, LOUIS #### [facility] [address] [place] [address] [employer]ware Systems Architect: Nate Stafford MD Cocaine Metabolite Negative Normal NEG [facility] Comment on above: Result Comment: (Positive cutoff 300 ng/mL) Performed By: #### U AMIC, LOUIS #### [facility] [address] [address] Middleware Systems Architect: Nate Stafford MD Interpretive Info Assay provides medic al screening only. The absence of expected drug(s) and/or Normal [facility] Comment on above: Result Comment: meta bolite(s) may indicate diluted or adulterated urine, limitations of testing or timing of collection. Testing for legal purposes should be confirmed by another method. To request confirmation of test result, please call the lab within 7 days of sample submission. Performed By: #### U AMIC, LOUIS #### [facility] [address] [place] [address] Middleware Systems Architect: Nate Stafford MD Methadone Ql (U) Negative Normal NEG [facility] Comment on above: Result Comment: (Positive cutoff 300 ng/mL) Performed By: #### U AMIC, LOUIS #### [facility] [address] [place] [address] Middleware Systems Architect: Nate Stafford MD Opiate(s), Ur Negative Normal NEG [facility] Comment on above: Result Comment: (Positive cutoff 300 ng/mL) Performed By: #### U AMIC, LOUIS #### [employer] [address] [place] [address] Middleware Systems Architect: Nate Stafford MD Oxycodone, Urine Negative Normal NEG [facility] Comment on above: Result Comment: (Positive cutoff 100 ng/mL) Performed By: #### U AMIC, LOUIS #### [facility] [address] [place] [address] Middleware Systems Architect: Nate Stafford MD Phencyclidine, Ur Negative Normal NEG [facility] Comment on above: Result Comment: (Positive cutoff 25 ng/mL) Performed By: #### U AMIC, LOUIS #### [facility] [address] [place] [address] Middleware Systems Architect: Nate Stafford MD Buprenorphrine, Ur NOT REPORTED Normal NEG [facility] Comment on above: Performed By: #### U AMIC, LOUIS #### [facility] [address] [place] [address] Middleware Systems Architect: Nate Stafford MD MDMA, Urine NOT REPORTED Normal NEG [facility] Comment on above: Performed By: #### U AMIC, LOUIS #### [facility] [address] [place] [address] Middleware Systems Architect: Nate Stafford MD Methamphetamine, Ur NOT REPORTED Normal NEG [facility] Comment on above: Performed By: #### U AMIC, LOUIS #### [facility] [address] [place] [address] Middleware Systems Architect: Nate Stafford MD Propoxyphene,Urine NOT REPORTED Normal NEG [facility] Comment on above: Performed By: #### U AMIC, LOUIS #### [facility] [address] [place] [address] Middleware Systems Architect: Nate Stafford MD Tricyclic antidepressants Screen Ql (U) NOT REPORTED Normal NEG [facility] Comment on above: Performed By: #### U AMIC, LOUIS #### [facility] [address] [place] [address] Middleware Systems Architect: Nate Stafford MD No Panel InformationOrdered By: [...] to body habitus but requires clinical correlation. [facility] Work Phone: EXAMINATION: TWO XRA Y VIEWS [...] may relate to swelling or body habitus. [email or web address] Phone: Francisco, Mhpn Incoming R adiant Results From [employer] - 08/01/2020 9:41 PM EDT EXAMINATION: TWO [...] to body habitus but requires clinical correlation. [email or web address] Phone: No Panel InformationOrdered By: Ronnie Lund on 08-01-2020 Degenerative disc di sease at L5-S1. No acute bony abnormalities are seen in the thoracic or lumbar spine [email or web address] Phone: EXAMINATION: CT OF T HE LUMBAR [...] SOFT TISSUES/RETROPERITONEUM: No paraspinal mass is seen. [email or web address] Phone: Francisco, Mhpn Incoming R adiant Results From [employer] - 08/01/2020 7:11 PM EDT EXAMINATION: CT [...] seen in the thoracic or lumbar spine [email or web address] Phone: TRAUMA PANELOrdered By: Carlos Pathak on 08-01-2020 Lawson Test Unable to perform te sting: No specimen received. [email or web address] Phone: Anion gap [Moles/Vol] 10 mmol/L 9 - 17 mmol/L [email or web address] Phone: aPTT Coag (Bld) [Time] 23.3 s [email or web address] Phone: Comment on above: IV Heparin Therapy Range: 48.6-77.8 Blood Bank Specimen BILL FOR SERVICES PERFORMED [email or web address] Phone: Carboxyhemoglobin Unable to perform te sting: No specimen received. % [employer] Phone: Chloride [Moles/Vol] 100 mmol/L 98 - 10 7 mmol/L [employer] Phone: CO2 [Moles/Vol] 24 mmol/L 20 - 31 mmol/L [employer] Phone: Creatinine [Mass/Vol] 0.71 mg/dL 0.70 - 1.20 mg/dL [employer] Phone: Ethanol [Mass/Vol] mg/dL <10 mg/dL [employer] Phone: Ethanol percent <0.010 <0.010 % [facility] Work Phone: FIO2 Unable to perform te sting: No specimen received. [email or web address] Phone: GFR >60 >60 mL/min [employer] Phone: GFR Non- >60 >60 mL/min [email or web address] Phone: GFR/1.73 sq M.predicted MDRD (S/P/Bld) [Vol rate/Area] [email or web address] Phone: Comment on above: Average GFR for 40-4 9 years old: 99 mL/min/1.73sq m Chronic Kidney Disease: <60 mL/min/1.73sq m Kidney failure: <15 mL/min/1.73sq m eGFR calculated using average adult body mass. Additional eGFR calculator available at: http://www.[employer]edu[employer]/multiple_crcl_2012.htm GFR/1.73 sq M.predicted MDRD (S/P/Bld) [Vol rate/Area] NOT REPORTED [email or web address] Phone: Glucose [Mass/Vol] 109 mg/dL High 70 - 99 mg/dL [email or web address] Phone: hCG Qual PATIENT IS MALE NEGATIVE [facility] Work Phone: HCO3, Venous Unable to perform te sting: No specimen received. 24.0 - 30.0 mmol/L [email or web address] Phone: Hematocrit (Bld) [Volume fraction] 42.3 % 40.7 - 50.3 % [email or web address] Phone: Hemoglobin.gastroint estinal spec 1 Ql (Stl) 14.2 g/dL 13.0 - 17.0 g/dL [email or web address] Phone: INR Coag (Bld) [Relative time] 1.0 {INR} [email or web address] Phone: Comment on above: Therapeutic Range: Moderate Anticoagulant Intensity: INR = 2.0-3.0 High Anticoagulant Intensity: INR = 2.5-3.5 Interpretation and review of laboratory results Abnormal [employer] Phone: MCH (RBC) [Entitic mass] 29.3 pg 25.2 - 33.5 pg [email or web address] Phone: MCHC (RBC) [Mass/Vol] 33.6 g/dL 28.4 - 34.8 g/dL [email or web address] Phone: MCV (RBC) [Entitic vol] 87.2 fL 82.6 - 102.9 fL [employer] Phone: Methemoglobin Unable to perform te sting: No specimen received. % [employer] Phone: Mode Unable to perform te sting: No specimen received. [employer] Phone: Negative Base Excess, Srikanth Unable to perform testing: No specimen received. 0.0 - 2.0 mmol/L [employer] Phone: NOTIFICATION Unable to perform te sting: No specimen received. [employer] Phone: NOTIFICATION TIME Unable to perform te sting: No specimen received. [employer] Phone: NRBC Automated 0.0 0.0 per 100 WBC [employer] Phone: O2 Device/Flow/% Unable to perform te sting: No specimen received. [employer] Phone: O2 Sat, Srikanth Unable to perform te sting: No specimen received. % [employer] Phone: Oxyhemoglobin Unable to perform te sting: No specimen received. 95.0 - 98.0 % [employer] Phone: pCO2,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
== END 2023-05-26 14:20 | disposition home or self-care (01) ==
PROVIDERS: PCP Nurse Practitioner; Visit Provider Anesthesiology
DX: M47.812 Spondylosis without myelopathy or radiculopathy, cervical region (principal)
CPT/HCPCS: 72052

== ENCOUNTER 2023-05-29 09:15 | Emergency (ER) | payer BC, SELFPAY ==
[2023-05-29 09:19] VITALS: BP 134/56; PULSE 111; RESP 24; TEMP 37.7; O2SAT 97; BMI 47.8
--- NOTE | 2023-05-29 10:07 | ED.GENADUL1 ---
HPI - General Adult General Chief complaint: Back Pain/Injury Stated complaint: BACK PAIN Time Seen by Provider: 05/29/23 09:51 Mode of arrival: ambulance Limitations: no limitations History of Present Illness HPI narrative: Patient is a 52-year-old male who is presenting to the ER today with chief complaint of severe bilateral lower back pain with radiation into the left buttocks. Patient had a ablation done by Dr Aguilar From [place] [facility] on April 22. Patient has been feeling very well since then. Patient has been on restricted duty at work. Patient stated that last night at approximately 1 AM he started getting intense lower lumbar pain with radiation into the left buttock. Patient was able to go from upstairs downstairs with the help of a cane. Approximately 3:00 in the morning patient took tramadol, Tylenol, Motrin along with his muscle relaxer. Patient had no fall, no other acute injury. Fianc? is at bedside. Patient was given 100 mcg of fentanyl prior to arrival. All systems are negative except as noted/marked. All systems reviewed and otherwise negative. Nurses note and vital signs reviewed and patient is not hypoxic. General: The patient appears in moderate distress secondary to pain, unable to get any comfortable position sitting on the cot. Patient is resting uncomfortably on cart. Patient is not toxic, lethargic, or listless. Morbidly obese. Skin: Warm, dry, no pallor noted. There is no rash noted. No petechiae, purpura. Head: Normocephalic, atraumatic Eye: Normal conjunctiva, no drainage, EOMI. PERRL Ears, Nose, Mouth, and Throat: oral mucosa is moist. Nares patent. Mouth without vesicles. Cardiovascular: Regular Rate and Rhythm, no murmur, gallop, rub Respiratory: Patient is in no distress, no accessory muscle use, lungs are clear to auscultation, no wheezing, rales or rhonchi Back: Patient has severe tenderness to palpation L3-L5, and paralumbar spinal tenderness as well to the L3-5. Patient is mild to moderate tenderness palpation to left piriformis muscle, No signs or symptoms of saddle anesthesia or cauda equina. patient has no acute motor or sensory deficits to lower extremities. non-tender, no CVA tenderness bilaterally to percussion. No CT LS midline pain GI: Morbidly obese, no tenderness to palpation, no masses appreciated. No rebound, guarding, or rigidity noted. No distention Musculoskeletal: Patient has full range of motion of all of the extremities, no motor, sensory, or focal neurological deficits Neurological: A&O x4, normal speech Psychiatric: Cooperative Related Data Home Medications Medication Instructions Recorded Confirmed acetaminophen 500 mg capsule 1,000 mg PO .Q12 PRN pain 01/28/23 04/22/23 ibuprofen 200 mg tablet (I-Prin) 800 mg PO Q12H 01/28/23 04/22/23 lisinopril 10 mg tablet 10 mg PO DAILY 01/28/23 04/22/23 omeprazole 20 mg capsule,delayed 20 mg PO DAILY 01/28/23 04/22/23 release aspirin 81 mg tablet,delayed 81 mg PO DAILY 02/24/23 04/22/23 release (Adult Aspirin Regimen) cholecalciferol (vitamin D3) 25 2,000 unit PO DAILY 02/24/23 04/22/23 mcg (1,000 unit) chewable tablet (VitaJoy Daily D) cyanocobalamin (vitamin B-12) 500 500 mcg PO DAILY 02/24/23 04/22/23 mcg tablet (B-12 DOTS) magnesium 250 mg tablet 500 mg PO DAILY 03/04/23 04/22/23 Previous Rx's Medication Instructions Recorded aspirin 81 mg tablet,delayed 81 mg PO BID 30 days #60 tabs 03/11/23 release (Adult Low Dose Aspirin) oxycodone-acetaminophen 5 mg-325 1 tab PO Q6H PRN pain 7 days #28 03/11/23 mg tablet (Percocet) tabs tizanidine 2 mg tablet 2 mg PO TID PRN muscle spasticity 03/11/23 7 days #21 tabs lidocaine 5 % topical patch 1 patch topical Q24H #15 ea 05/29/23 (Lidoderm) methylprednisolone 4 mg tablets in 4 mg PO DAILY 6 days #21 ea 05/29/23 a dose pack (Medrol (Javid)) Allergies Allergy/AdvReac Type Severity Reaction Status Date / Time No Known Drug Allergies Allergy Verified 04/22/23 08:18 [facility] Medical History (Updated 05/29/23 @ 11:44 by Christopher Orourke MD) Foot pain ?M79.673 - Pain in unspecified foot (ICD-10) Ankle pain ?M25.579 - Pain in unspecified ankle and joints of unspecified foot (ICD-10) Achilles tendinitis ?M76.60 - Achilles tendinitis, unspecified leg (ICD-10) Plantar fascial fibromatosis ?M72.2 - Plantar fascial fibromatosis (ICD-10) Migraine ?G43.909 - Migraine, unspecified, not intractable, without status migrainosus (ICD-10) GERD (gastroesophageal reflux disease) ?K21.9 - Gastro-esophageal reflux disease without esophagitis (ICD-10) Heartburn ?R12 - Heartburn (ICD-10) High cholesterol ?E78.00 - Pure hypercholesterolemia, unspecified (ICD-10) Calcaneal spur ?M77.30 - Calcaneal spur, unspecified foot (ICD-10) Strain of Achilles tendon ?S86.019A - Strain of unspecified Achilles tendon, initial encounter (ICD-10) Low back pain ?M54.50 - Low back pain, unspecified (ICD-10) Kidney stones ?N20.0 - Calculus of kidney (ICD-10) Sleep apnea ?G47.30 - Sleep apnea, unspecified (ICD-10) Hypertension ?I10 - Essential (primary) hypertension (ICD-10) Surgical History History of colonoscopy ?Z98.890 - Other specified postprocedural states (ICD-10) History of foot surgery ?Z98.890 - Other specified postprocedural states (ICD-10) H/O vasectomy (2014) ?Z98.52 - Vasectomy status (ICD-10) H/O shoulder replacement ?Z96.619 - Presence of unspecified artificial shoulder joint (ICD-10) History of carpal tunnel release ?Z98.890 - Other specified postprocedural states (ICD-10) Family History Other Family history of lung cancer Social History Within the past year, how often did you have a drink containing alcohol: monthly or less Smoking status: Never smoker Non-prescribed substance use: denies use Previous occupational history: [employer] Highest level of school completed/degree received: high school graduate Exam Constitutional Vital Signs, click to edit/add: Last Vital Signs Temp 100 F 05/29/23 09:19 Pulse 111 H 05/29/23 09:19 Resp 24 05/29/23 09:19 BP 134/56 05/29/23 09:19 Pulse Ox 97 05/29/23 09:19 Course Vital Signs Vital signs: Vital Signs Temperature 100 F 05/29/23 09:19 Pulse Rate 111 H 05/29/23 09:19 Respiratory Rate 24 05/29/23 09:19 Blood Pressure 134/56 05/29/23 09:19 Pulse Oximetry 97 05/29/23 09:19 Temperature 100 F 05/29/23 09:19 Pulse Rate 111 H 05/29/23 09:19 Respiratory Rate 24 05/29/23 09:19 Blood Pressure 134/56 05/29/23 09:19 Pulse Oximetry 97 05/29/23 09:19 Medical Decision Making MDM Narrative Medical decision making narrative: Patient told Vicky MÁRQUEZ after my initial HPI and physical exam that he has been having left-sided chest pain since Saturday intermittently. Cardiac workup has been initiated as well. Patient was initially given IV Dilaudid and Valium to help with his pain. Patient was given Toradol. After patient stated he has been having chest pain since Saturday intermittently, he was also given aspirin. Chest x-ray, EKG showed no acute findings. Lab work showed no acute findings. I did speak to Mallika ALCOCER at the pain management office for [facility]. She recommended doing flexion and extension views of the lumbar x-ray, also to place patient on Medrol Dosepak and she will see the patient in the office tomorrow for reevaluation. Patient lab work shows no acute signs of inflammation or any other acute abnormalities, patient will follow-up with PCP as needed. Work note was given. No questions at discharge. Lab Data Lab results reviewed: Yes I reviewed the patient's lab results Labs: Lab Results 05/29/23 Range/Units 10:52 WBC 8.0 (4.0-11.0) 10^3/uL RBC 4.04 L (4.70-6.10) 10^6/uL Hgb 11.4 L (14.0-18.0) g/dL Hct 34.7 L (42.0-54.0) % MCV 85.9 (80.0-94.0) fL MCH 28.2 (25.9-34.0) pg MCHC 32.9 (29.9-35.2) g/dL RDW 14.1 (11.0-15.0) % Plt Count 162 (150-450) 10^3/uL MPV 9.8 (9.5-13.5) fL Neut % (Auto) 80.2 H (43.0-75.0) % Lymph % (Auto) 10.3 L (20.5-60.0) % Guthrie % (Auto) 8.5 (1.7-12.0) % Eos % (Auto) 0.4 L (0.9-7.0) % Baso % (Auto) 0.2 (0.2-2.0) % Neut # (Auto) 6.4 (1.4-6.5) 10^3/uL Lymph # (Auto) 0.8 L (1.2-3.8) 10^3/uL Guthrie # (Auto) 0.7 (0.3-0.8) 10^3/uL Eos # (Auto) 0.0 (0.0-0.7) 10^3/uL Baso # (Auto) 0.0 (0.0-0.1) 10^3/uL Abs Immat Gran (auto) 0.03 (0.00-0.03) 10^3/uL Imm/Tot Granulo (auto) 0.4 (0.0-0.5) % Sodium 135 L (136-145) mmol/L Potassium 4.3 (3.5-5.1) mmol/L Chloride 100 (98-107) mmol/L Carbon Dioxide 28.6 (21.0-32.0) mmol/L Anion Gap 10.7 BUN 15.0 (7.0-18.0) mg/dL Creatinine 0.94 (0.70-1.30) mg/dL Est GFR ( Amer) >60 (>=60) Est GFR (Non-Af Amer) >60 (>=60) BUN/Creatinine Ratio 16.0 Glucose 105 (74-106) mg/dL Calcium 8.6 (8.5-10.1) mg/dL Total Bilirubin 0.7 (0.2-1.0) mg/dL AST 21 (15-37) U/L ALT 32 (16-63) U/L Alkaline Phosphatase 98 (46-116) U/L Troponin I High Sens 29.2 (4.0-76.1) pg/mL Total Protein 7.6 (6.4-8.2) g/dL Albumin 3.4 (3.4-5.0) g/dL Globulin 4.2 g/dL Albumin/Globulin Ratio 0.8 Lipase 43.0 (16.0-77.0) U/L ECG Data Attestation: I personally reviewed and interpreted this ECG as follows: (EKG interpretation. Sinus tachycardia at 110. Left axis deviation. No acute ST elevation, no acute ectopy. QTc of 381) Discharge Plan Discharge Chief Complaint: Back Pain/Injury Clinical Impression: Lumbar radiculopathy, Lumbar pain, Chest pain Patient Disposition: Home, Self-Care Time of Disposition Decision: 11:44 Condition: Fair Prescriptions / Home Meds: New lidocaine [Lidoderm] 5 % adhesive patch,medicated 1 patch topical Q24H Qty: 15 0RF Rx Instructions: leave on most painful area for up to 12 hrs methylprednisolone [Medrol (Javid)] 4 mg tablets,dose pack 4 mg PO DAILY 6 Days Qty: 21 0RF Rx Instructions: as directed No Action aspirin [Adult Aspirin Regimen] 81 mg tablet,delayed release (DR/EC) 81 mg PO DAILY cyanocobalamin (vitamin B-12) [B-12 DOTS] 500 mcg tablet 500 mcg PO DAILY cholecalciferol (vitamin D3) [VitaJoy Daily D] 25 mcg (1,000 unit) tablet,chewable 2,000 unit PO DAILY lisinopril 10 mg tablet 10 mg PO DAILY omeprazole 20 mg capsule,delayed release(DR/EC) 20 mg PO DAILY acetaminophen 500 mg capsule 1,000 mg PO .Q12 PRN (Reason: pain) ibuprofen [I-Prin] 200 mg tablet 800 mg PO Q12H magnesium 250 mg tablet 500 mg PO DAILY aspirin [Adult Low Dose Aspirin] 81 mg tablet,delayed release (DR/EC) 81 mg PO BID 30 Days Qty: 60 0RF oxycodone-acetaminophen [Percocet] 5-325 mg tablet 1 tab PO Q6H PRN (Reason: pain) 7 Days Qty: 28 0RF tizanidine 2 mg tablet 2 mg PO TID PRN (Reason: muscle spasticity) 7 Days Qty: 21 0RF Instructions: Chest Pain (ED), Acute Low Back Pain (ED), Lumbar Radiculopathy (ED), Lower Back Exercises (ED) Additional Instructions: Use ice 20 minutes on, 20 minutes off. Use Motrin, Tylenol, Ultram along with your muscle relaxer as you have been. Use Lidoderm patches as well. Call your pain management office, they will see you in the next 1 to 2 days for reevaluation. If you continue to have chest pain, follow-up with your PCP for outpatient additional cardiac testing as indicated Stand Alone Forms: Work/School Release, Portal Instructions Referrals: YOUNG WHEAT [Primary Care Provider] - 1 week
[2023-05-29] MEDS: DIAZEPAM 10 MG/2 ML SYRINGE 2 MG IV (10:15)
[2023-05-29] MEDS: KETOROLAC TROMETHAMINE 30 MG/ML VIAL 15 MG IVP (10:16)
--- NOTE | 2023-05-29 10:25 | ECG_ITS ---
[facility] Test Date: 2023-05-29 Pat Name: NEHAL BAIG Department: Room: - Gender: Male Crisis Clinician: : 1970 Requested By: [id number] Order Number: [id number] Reading MD: AILYN JOHNSON Measurements Intervals [place] Rate: 110 P: 34 [place]: 142 QRS: -15 QRSD: 88 T: 22 QT: 316 QTc: 381 Interpretive Statements 1120 Sinus tachycardia 9140 abnormal rhythm ECG Compared to ECG 03/04/2023 13:15:18 Sinus rhythm no longer present Electronically Signed On 05-30-2023 6:35:45 EST by AILYN JOHNSON
[2023-05-29] MEDS: ASPIRIN 325 MG TABLET PO (10:45)
--- NOTE | 2023-05-29 10:45 | XR_ITS ---
The [place] [id number] Patient Name: NEHAL BAIG MRN: [id number] date: 1970 Sex: M Assigned Patient Location: ER Current Patient Location: ER Accession/Order Number: [id number] Exam Date: 05/29/2023 10:30 Report Date: 05/29/2023 10:54 At the request of: JOSE BUTTS Procedure: XR lumbar spine min 4V EXAMINATION: XR lumbar spine min 4V HISTORY: pain COMPARISON: No relevant comparison available. FINDINGS: BONES: Neutral projection demonstrates normal alignment with no acute fracture or spondylolisthesis. Mild degenerative spondylosis. Moderate facet osteoarthropathy. DISC SPACES: Moderate to severe disc space narrowing with endplate sclerosis L5-S1 PARASPINOUS: Negative. No paraspinous abnormality is seen. OTHER: No transient spondylolisthesis with flexion or extension XR/XR lumbar spine min 4V IMPRESSION: Degenerative changes most significant at L5-S1 No dynamic instability Electronically authenticated by: KINGSLEY HERRERA Date: 05/29/2023 10:54
--- NOTE | 2023-05-29 10:45 | XR_ITS ---
The [address] [address] Patient Name: NEHAL BAIG MRN: [id number] date: 1970 Sex: M Assigned Patient Location: ER Current Patient Location: ER Accession/Order Number: [id number] Exam Date: 05/29/2023 10:30 Report Date: 05/29/2023 10:53 At the request of: JOSE BUTTS Procedure: XR chest 2V EXAMINATION: XR chest 2V HISTORY: cp COMPARISON: No relevant comparison available. TECHNIQUE: PA and lateral FINDINGS: LUNGS: No significant pulmonary parenchymal abnormalities. VASCULATURE: No increased pulmonary vasculature. PLEURA: No pneumothorax, effusion, or pleural thickening. CARDIAC: No cardiomegaly or cardiac silhouette abnormality. MEDIASTINUM: No visible mass or adenopathy. BONES: No fracture or visible bone lesion. Left humeral head arthroplasty OTHER: Negative. XR/XR chest 2V IMPRESSION: No acute cardiopulmonary process Electronically authenticated by: KINGSLEY HERRERA Date: 05/29/2023 10:53
[2023-05-29 10:58] LABS: Basophils Percent Auto 0.2 % (0.2-2.0); Eosinophils Percent Auto 0.4 % (0.9-7.0); Hematocrit 34.7 % (42.0-54.0); Hemoglobin 11.4 g/dL (14.0-18.0); Immature Granulocytes Abs Auto 0.03 10^3/uL (0.00-0.03); Immature Granulocytes Pct Auto 0.4 % (0.0-0.5); Lymphocytes Absolute Auto 0.8 10^3/uL (1.2-3.8); Lymphocytes Percent Auto 10.3 % (20.5-60.0); Mean Corpuscular HGB Conc 32.9 g/dL (29.9-35.2); Mean Corpuscular Hemoglobin 28.2 pg (25.9-34.0); Mean Corpuscular Volume 85.9 fL (80.0-94.0); Mean Platelet Volume 9.8 fL (9.5-13.5); Monocytes Absolute Auto 0.7 10^3/uL (0.3-0.8); Monocytes Percent Auto 8.5 % (1.7-12.0); Neutrophils Absolute Auto 6.4 10^3/uL (1.4-6.5); Neutrophils Percent Auto 80.2 % (43.0-75.0); Platelet Count 162 10^3/uL (150-450); Red Blood Count 4.04 10^6/uL (4.70-6.10); Red Cell Distribution Width 14.1 % (11.0-15.0)
[2023-05-29 11:24] LABS: Alanine Aminotransferase 32 U/L (16-63); Albumin Globulin Ratio 0.8; Albumin Level 3.4 g/dL (3.4-5.0); Alkaline Phosphatase 98 U/L (46-116); Anion Gap 10.7; Aspartate Amino Transferase 21 U/L (15-37); Bilirubin Total 0.7 mg/dL (0.2-1.0); Calcium 8.6 mg/dL (8.5-10.1); Carbon Dioxide 28.6 mmol/L (21.0-32.0); Chloride 100 mmol/L (98-107); Estimated GFR (African America >60 (>=60); Estimated GFR (Non-African Ame >60 (>=60); Globulin 4.2 g/dL; Glucose 105 mg/dL (74-106); Potassium 4.3 mmol/L (3.5-5.1); Sodium 135 mmol/L (136-145); Total Protein 7.6 g/dL (6.4-8.2); Troponin I High Sensitivity 29.2 pg/mL (4.0-76.1)
== END 2023-05-29 12:04 | disposition home or self-care (01) ==
PROVIDERS: Emergency Provider Emergency Medicine; PCP Nurse Practitioner
DX: M54.16 Radiculopathy, lumbar region (principal); R07.9 Chest pain, unspecified; M54.50 Low back pain, unspecified; Z79.82 Long term (current) use of aspirin; Z79.899 Other long term (current) drug therapy; K21.9 Gastro-esophageal reflux disease without esophagitis; E78.00 Pure hypercholesterolemia, unspecified; G47.30 Sleep apnea, unspecified; I10 Essential (primary) hypertension; Z87.442 Personal history of urinary calculi; Z98.890 Other specified postprocedural states; Z98.52 Vasectomy status; Z96.619 Presence of unspecified artificial shoulder joint
CPT/HCPCS: 36415; 71046; 72110; 80053; 83690; 84484; 85025; 93005; 96374; 96375; 99285

== ENCOUNTER 2023-05-30 09:09 | Outpatient (OUT) | payer BC, SELFPAY ==
--- NOTE | 2023-05-30 09:35 | P.CN_ITS ---
Consult Note: HPI Data of Consult Patient: known to practice within the last 3 years Requesting Physician: Miya Batista NP Primary Care Provider: YOUNG WHEAT Consult Narrative Reason for consult: f/u Narrative: Pardeep Engel a pleasant 52 year old male presents for evaluation and management of back pain, has a hx of chronic low back pain but at last visit was having significant relief of low back pain as a result of bilateral L4-5 L5-S1 RFAs. Yesterday patient woke up in the middle of the night in extreme pain, patient had to call the squad and was evaluated at the ER. Patient denies any injury, no falls. Patient has been taking ibuprofen, tylenol, baclofen, and tramadol without relief of pain. Currently on medrol dose pack, today is day 2, without improvement. Pain is 10/10 low back without radiculopathy, no loss of bowel or bladder. Patient has had fevers chills over the last two weeks, no other symptoms. No fever within the last 48 hours. cc:: CC: Miya Batista NP Review of Systems ROS Status of ROS 10 or more systems reviewed and unremark able except as noted in history and below Musculoskeletal Reports: back pain PFSH PFSH Medical History Foot pain ?M79.673 - Pain in unspecified foot (ICD-10) Ankle pain ?M25.579 - Pain in unspecified ankle and joints of unspecified foot (ICD-10) Achilles tendinitis ?M76.60 - Achilles tendinitis, unspecified leg (ICD-10) Plantar fascial fibromatosis ?M72.2 - Plantar fascial fibromatosis (ICD-10) Migraine ?G43.909 - Migraine, unspecified, not intractable, without status migrainosus (ICD-10) GERD (gastroesophageal reflux disease) ?K21.9 - Gastro-esophageal reflux disease without esophagitis (ICD-10) Heartburn ?R12 - Heartburn (ICD-10) High cholesterol ?E78.00 - Pure hypercholesterolemia, unspecified (ICD-10) Calcaneal spur ?M77.30 - Calcaneal spur, unspecified foot (ICD-10) Strain of Achilles tendon ?S86.019A - Strain of unspecified Achilles tendon, initial encounter (ICD-10) Low back pain ?M54.50 - Low back pain, unspecified (ICD-10) Kidney stones ?N20.0 - Calculus of kidney (ICD-10) Sleep apnea ?G47.30 - Sleep apnea, unspecified (ICD-10) Hypertension ?I10 - Essential (primary) hypertension (ICD-10) Surgical History History of colonoscopy ?Z98.890 - Other specified postprocedural states (ICD-10) History of foot surgery ?Z98.890 - Other specified postprocedural states (ICD-10) H/O vasectomy (2013) ?Z98.52 - Vasectomy status (ICD-10) H/O shoulder replacement ?Z96.619 - Presence of unspecified artificial shoulder joint (ICD-10) History of carpal tunnel release ?Z98.890 - Other specified postprocedural states (ICD-10) Family History Other Family history of lung cancer Social History Within the past year, how often did you have a drink containing alcohol: monthly or less Smoking status: Never smoker Non-prescribed substance use: denies use 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 Highest level of school completed/degree received: high school graduate Meds Home Medications and Allergies Home Medications Medication Instructions Recorded Confirmed Type acetaminophen 500 mg capsule 1,000 mg PO .Q12 PRN pain 01/28/23 04/22/23 History ibuprofen 200 mg tablet (I-Prin) 800 mg PO Q12H 01/28/23 04/22/23 History lisinopril 10 mg tablet 10 mg PO DAILY 01/28/23 04/22/23 History omeprazole 20 mg capsule,delayed 20 mg PO DAILY 01/28/23 04/22/23 History release aspirin 81 mg tablet,delayed 81 mg PO DAILY 02/24/23 04/22/23 History release (Adult Aspirin Regimen) cholecalciferol (vitamin D3) 25 2,000 unit PO DAILY 02/24/23 04/22/23 History mcg (1,000 unit) chewable tablet (VitaJoy Daily D) cyanocobalamin (vitamin B-12) 500 500 mcg PO DAILY 02/24/23 04/22/23 History mcg tablet (B-12 DOTS) magnesium 250 mg tablet 500 mg PO DAILY 03/04/23 04/22/23 History aspirin 81 mg tablet,delayed 81 mg PO BID 30 days #60 tabs 03/11/23 04/22/23 Rx release (Adult Low Dose Aspirin) oxycodone-acetaminophen 5 mg-325 1 tab PO Q6H PRN pain 7 days #28 03/11/23 04/22/23 Rx mg tablet (Percocet) tabs tizanidine 2 mg tablet 2 mg PO TID PRN muscle spasticity 03/11/23 04/22/23 Rx 7 days #21 tabs lidocaine 5 % topical patch 1 patch topical Q24H #15 ea 05/29/23 Rx (Lidoderm) methylprednisolone 4 mg tablets in 4 mg PO DAILY 6 days #21 ea 05/29/23 Rx a dose pack (Medrol (Javid)) diazepam 10 mg tablet (Valium) 10 mg PO DAILY PRN anxiety #1 tab 05/30/23 Rx hydrocodone 7.5 mg-acetaminophen 1 tab PO TID PRN pain #21 tabs 05/30/23 Rx 325 mg tablet Allergies Allergy/AdvReac Type Severity Reaction Status Date / Time No Known Drug Allergies Allergy Verified 04/22/23 08:18 Exam Constitutional Documenting provider has reviewed patient's vital signs: yes Common normals: oriented x3, healthy appearing, alert and well nourished General appearance: cooperative and ill appearing [facility] Common normals: normocephalic, hearing grossly normal bilaterally and moist oral mucous membranes Head and scalp: normocephalic Eye Common normals: PERRL Pupil: PERRL Neck & C-Spine Common normals: full ROM General: normal visual inspection Cervical spine: pain with cervical ROM and paracervical muscle tenderness Other: positive facet loading negative spurlings, sensation intact BUE Chest Common normals: inspection of chest normal Respiratory Common normals: normal respiratory effort, no retractions and no use of accessory muscles Back & Pelvis Lumbar spine/lower back: ROM limited, pain with ROM and straight leg raise negative bilaterally Other: no radiculopathy strength 5/5 in BLE Extremity Left upper extremity: shoulder joint (pain in AC joint..) Other: severe edema to left shoulder, pain over rotator cuff. edema to shoulder and arm. strength 4/5. pain over AC joint Neuro Common normals: oriented x3, CN's II-XII intact bilaterally, moves all extremities, no focal motor deficits, no sensory deficits noted and deep tendon reflexes 2+ bilaterally Sensorium/orientation: alert Motor exam: strength 5/5 throughout and no movement abnormalities noted Psych Common normals: mental status grossly normal, thought process normal, cooperative, affect normal, speech normal and activity/motor behavior normal Speech: normal speech Thought process: normal thought process Results Additional Findings Additional findings: I have checked an OARRS report on this patient today and there are no aberrancies noted in the prescribing history.?? A drug screen was completed and reviewed within the last year, and if there has not been a drug screen completed we ordered one today to monitor higher risk, state monitored pain medication use. As part of providing excellent, safe, comprehensive care, the following was completed at our patient's visit: 1. A medication reconciliation and review to ensure accurate knowledge of current/active medications, including asking our patients to inform us about any [id number] medications or herbal remedies/nutritional supplements/alternative remedies. 2. A review to specifically ensure our patients have had annual screening for: elevated body mass index (BMI), tobacco use, screening for depression, and screening for unhealthy alcohol use. When screening is concerning, patients are provided with education and the specific recommendation to discuss the concerning health issue and treatment options with their primary care provider. Assessment and Plan Assessment and Plan (1) Lumbar pain: (2) Lumbar spondylosis: (3) Lumbar radiculopathy: (4) Myofascial pain: Plan start norco 7.5-325mg TID PRN moderate to severe pain 1 week supply. risks vs benefits discussed. patient has been exceeding max recommendations of tylenol and ibuprofen without benefit, found no benefit to tramadol 50-100mg. MRI of lumbar spine without contrast with valium 10mg po prior to MRI decrease ibuprofen and tylenol to max recommended doses continue baclofen continue heat/ice f/u 1 week
== END 2023-05-30 09:10 | disposition home or self-care (01) ==
PROVIDERS: PCP Nurse Practitioner; Visit Provider Nurse Practitioner
DX: M54.50 Low back pain, unspecified (principal); M47.816 Spondylosis without myelopathy or radiculopathy, lumbar region; M54.16 Radiculopathy, lumbar region; M79.18 Myalgia, other site
CPT/HCPCS: G0463

== ENCOUNTER 2023-05-31 07:13 | Inpatient (IN) | payer BC, SELFPAY ==
[2023-05-31] VITALS (21 sets, daily range): BP systolic 102–144; BP diastolic 41–61; PULSE 94–128; RESP 16–20; TEMP 36.6–38.2; O2SAT 84–94; BMI 47.8; BMI 47.5
--- OUTSIDE RECORDS SUMMARY | 2023-05-31 07:20 | XMS_ITS | CCD ---
Author Name Unknown Address [address] [place] [address] Organization [employer] Care Team Providers Care Vice President Integrated Name Role Phone Pal VP RESPIRATORY - [facility] Primary Care Provide r [facility] Primary Care Unavailable JUANITA CARMONA Consulting Unavailable JUANITA CARMONA Attending Unavailable JUANITA CARMONA Admitting Unavailable [facility] VP RESPIRATORY.[facility] Primary Care Provider [facility] Primary Care Physician UnavailNicolasa Perry Unavailable Unavailable [facility] Primary Care Physician [facility] VP RESPIRATORY.[facility] Primary Care Provider [facility] VP RESPIRATORY.[facility] Primary Care Provider [facility] VP RESPIRATORY.[facility] Primary Care Provider DR KINGSLEY HERRERA V Consulting Unavailable YRN, DR ARROYO Attending Unavailable YRN, DR ARROYO Admitting Unavailable TOSHA, DR JAYY Marte Consulting Unavailable YRN, DR ARROYO Consulting Unavailable [facility] Referring Unavailable [facility] Primary Care Unavailable ANH MENA Attending Unavailab ANH Morales Referring Unavailab le [facility] Primary Care Unavailable [facility] Primary Care Unavailable [facility] Referring Unavailable [facility] Primary Care Unavailable [facility] Attending Unavailable [facility] Referring Unavailable [facility] Primary Care Unavailable [facility] Primary Care Unavailable TREY SHARMA Attending Unavailable TREY SHARMA Referring Unavailable [facility] Attending Unavailable [facility] Primary Care Unavailable [facility] Primary Care Unavailable [facility] Referring Unavailable [facility] Primary Care Unavailable [facility] Attending Unavailable [facility] Referring Unavailable [facility] Primary Care Unavailable [facility] Referring Unavailable [facility] Primary Care Unavailable [facility] Attending Unavailable [facility] Primary Care Unavailable JAYY PATEL Referring Unavailable [facility] Primary Care Unavailable [facility] Attending Unavailable [facility] Primary Care Unavailable ANH MENA Attending Unavailab le [facility] Referring Unavailable ANH MENA Referring Unavailab TARSHA Willson Attending Unavailable [facility] Primary Care Unavailable [facility] Primary Care Unavailable [facility] Referring Unavailable [facility] Primary Care Unavailable [facility] Referring Unavailable BledsoeRishiJoel Natalie Attending Unavailable Bledsoe, Joel L Admitting Unavailable [facility] Primary Care Unavailable [facility] Primary Care Unavailable BledsoeJoel L Attending Unavailable ELENA ADAMS Attending Unavailable ELENA ADAMS Admitting Unavailable [facility] Primary Care Unavailable Joel Bledsoe L Attending Unavailable [facility] Primary Care Unavailable Bledsoe, Joel L Admitting Unavailable Joel Bledsoe L Attending Unavailable [facility] Care Unavailable BledsoeJoel Attending Unavailable Bledsoe, Joel L Admitting Unavailable [facility] Primary Care Unavailable Kelly Yi Unavailable Pal, ISABELLE-C [facility] Primary Care Provider HADIER Yi Attending Provider [phone] HAIDER Quezada Attending Provider HAIDER Guerrero Primary Care Provider Siri Quezada Unavailable Vonnie Guerrero Primary Care Physician Kandis Amado Unavailable Pal, [employer]-C [facility] Primary Care Provider HAIDER Yi Attending Provider HAIDER Quezada Attending Provider HAIDER Guerrero Primary Care Provider DO Huan Cowan Attending Provider Katya Harrington Unavailable Unavailable Siri Quezada Admitting Unavailable Siri Quezada Attending Unavailable [facility] Unavailabl e Siri Quezada Admitting Unavailable Siri Quezada Attending Unavailable Vonnie Guerrero Primary Care Unavailable Siri Quezada Admitting Unavailable Siri Quezada Attending Unavailable Yolanda, Vonnie Moran Primary Care Unavailable Yung, Huan A Admitting Unavailable Brown, Huan A Attending Unavailable Salome Aguillon [facility] Care Unavailabl e Kassidy, Kelly Admitting Unavailable [...] Propensity to adverse reactions to drug (disorder) [facility] Repository Medications Current Medications Medication Drug [...] hours. Start: 03-01-2019 take 2 tablets by [facility] every six hours as needed for [...] Ordered Start: 03-01-2019 take 1 tablet by toir th once daily aspirin 81 mg Oral [...] day(s), # 9 cap(s), Refills(s) 0, Pharmacy: [facility] #37, 185.5, cm, 08/08/21 12:06:00 EDT, Height/Length [...] constipation, # 20 cap(s), Refills(s) 0, Pharmacy: [facility] #[facility], 185.5, cm, 08/08/21 12:06:00 EDT, Height/Length [...] milk, # 60 tab(s), Refills(s) 0, Pharmacy: [facility] #[facility], 185.5, cm, 08/08/21 12:06:00 EDT, Height/Length [...] Daily, # 90 tab(s), Refills(s) 3, Pharmacy: [facility]/pharmacy #[id number], 185.5, cm, 01/09/23 16:37:00 EDT, Height/Length [...] Start: 03-23-2017 take 1 capsule by [facility] once daily Prilosec 20 mg Cap - DR 20 mg, Oral, Daily, Refills(s) 0 Start Date: 03/23/17 Status: Ordered Start: 2016 take 1 capsule by [facility] once daily Omeprazole 40 mg capsule [...] on above: Take 1 capsule by [facility] once daily. 2 tablet ondansetron (ZOFRAN-ODT) [...] Starting Sat08/01/20 at 2358 polyethylene glycol 3350 46926 mg powder for oral solution (1 source) [...] tab(s), Refill(s) 0, 1-2 tab(s) Oral q4hr, [facility], 185.5, cm, 08/08/21 12:06:00 EDT, Height/Length [...] autopap titration study. Please fax results to [phone]. DX: JACOBY G47.33 1 Each 0 11/08/2016 09/13/2020 Discontinued Comment on above: Please perform autop ap titration study. Please fax results to [phone]. DX: JACOBY G47.33 doxepin hydrochloride 10 mg [...] Comment on above: Take 2 tablets by [facility] daily with dinner. 1 ml morphine [...] 10 mL injection (DEFINITY) polyethylene glycol 3350 069572 mg / potassium chloride 2970 mg / sodium bicarbonate 6740 mg / sodium chloride 5860 mg / sodium sulfate 88416 mg powder for oral solution (14 sources) [...] [Morbid obesity with BMI of 50.0-59.9, adult ([facility])] Onset: 11-26-2019 Chronic Other nutritional; endocrine; and metabolic disorders (4 sources) Body mass index (BMI) 50.0-59.9, adult; Translations: [Morbid obesity with BMI of 50.0-59.9, adult ([facility])] Onset: 11-26-2019 Chronic Other nutritional; [...] a 52 year old male presenting to [facility] care Establish Care: History: Any previous diagnosis: HTN, Heel spurs Asthma, Depression, headaches, headaches, migraines, kidney stones, JACOBY History of seeing any specialist: Dr yung quiñones When was your last doctors visit: Last provider: Dr Aguillon Any recent labs: [facility] around 8 months ago Flu: refused Health Maintenance UTD: Colonoscopy: 2021 PSA: unsure if it has ever been checked Acute: Current issues/complaints: Pt has sleep study done and uses machine would like cpap supplies sent to [employer] in [place] pt does wear full mask- Resmed Air Touch F20 machine is [employer] 10VAuto Needs refill on lisinopril fYI: pt is seeing Neurology referral was sent through [employer]. 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 pt will have them done at [facility] on Saturday. Ordered: Misc Prescription, Full [...] will send order to medical supplies in [place] Ordered: Misc Prescription, Full Mask Resmed Air [...] Daily, # 90 tab(s), Refills(s) 3, Pharmacy: [facility]/pharmacy #[id number], 185.5, cm, 01/09/23 16:37:00 EDT, Height/Length Dosing, 174.3, kg, 01/09/23 16:37:00 EDT, Weight Dosing Follow-up No qualifying data (more content not included)... Normal [facility] Comment on above: Result Comment: Elec tronically Signed By: Vonnie Gardner\.br\Date and Time Signed: 04/30/23 14:06 EST Operative Reporton Operative Report [id number]#1.00TIFF Normal [facility] MR SHOULDER LEFT WO IV CONTR Kyle [...] Not Available Comment on above: Order Comment: [facility] - C9 Approved Patient had Left Shoulder surgery 1 year ago Previous MRI Lab Reportson 03-14-2023 Lab Reports [id number]#1.00TIFF Normal [facility] Lab Miscellaneous-LCon 03-13 Lab Miscellaneous See Ref Report Invalid Interpretation Code [facility] Comment on above: Performed By: #### 1 [id number] #### [facility] Laboratory [address] [place] [address] Reference Lab Reporton 03-13 Reference Lab Report [id number]#1.00TIFF Normal [facility] Lab Miscellaneous-LCon 03-12 Lab Miscellaneous See Ref Report Invalid Interpretation Code [facility] Comment on above: Result Comment: Perf ormed at: [address] [id number] PhD João Blankenship See scanned report Performed at: [address] [id number] PhD João Blankenship Performed By: #### 1 [id number] #### [facility] [address] [place] [address] Reference Lab Reporton 03-12 Reference Lab Report [id number]#1.00TIFF Normal [facility] Lab Miscellaneous-LCon 03-08 Lab Miscellaneous see ref medical lab director Invalid Interpretation Code [facility] Comment on above: Performed By: #### 1 [id number] #### [facility] [address] [place] [address] Reference Lab Reporton 03-08 Reference Lab Report [id number]#1.00TIFF Normal [facility] Auto Diffon 03-07-2023 Basophils/100 WBC (Bld) 0.7 % Normal 0.0-2.0 [facility] Comment on above: Order Comment: Order Added by Discern Expert. Performed By: #### 1 [id number] #### [facility] [address] [place] [address] Basophils/Leukocytes Auto (Bld) [Pure # fraction] 0.1 E9/L Normal 0.0-0.2 [facility] Comment on above: Order Comment: Order Added by Discern Expert. Performed By: #### 1 [id number] #### [facility] [address] [place] [address] 20219 Eosinophils/100 WBC (Bld) 2.6 % Normal 0.0-8.0 [facility] Comment on above: Order Comment: Order Added by Discern Expert. Performed By: #### 1 [id number] #### [facility] [address] [place] [address] 80661 Eosinophils/Leukocyt es Auto (Bld) [Pure # fraction] 0.2 E9/L Normal 0.0-0.5 [facility] Comment on above: Order Comment: Order Added by Discern Expert. Performed By: #### 1 [id number] #### [facility] [address] [place] [address] 06498 Lymphocytes/100 WBC (Bld) 18.6 % Normal 14.0-50.0 [facility] Comment on above: Order Comment: Order Added by Discern Expert. Performed By: #### 1 [id number] #### [facility] [address] [place] [address] 84669 Lymphocytes/Leukocyt es Auto (Bld) [Pure # fraction] 1.3 E9/L Normal 1.0-4.0 [facility] Comment on above: Order Comment: Order Added by Wilbert Expert. Performed By: #### 1 [id number] #### [facility] [address] [place] [address] 71162 Monocytes/100 WBC (Bld) 10.3 % Normal 4.0-14.0 [facility] Comment on above: Order Comment: Order Added by Discern Expert. Performed By: #### 1 [id number] #### [facility] [address] [place] [address] 20162 Monocytes/Leukocytes Auto (Bld) [Pure # fraction] 0.7 E9/L Normal 0.2-1.0 [facility] Comment on above: Order Comment: Order Added by Wilbert Expert. Performed By: #### 1 [id number] #### [facility] [address] [place] [address] Neutrophils/100 WBC (Bld) 67.8 % Normal 36.0-75.0 [facility] Comment on above: Order Comment: Order Added by Discern Expert. Performed By: #### 1 [id number] #### [facility] [address] [place] [address] Neutrophils/Leukocyt es Auto (Bld) [Pure # fraction] 4.8 E9/L Normal 2.0-7.5 [facility] Comment on above: Order Comment: Order Added by Discern Expert. Performed By: #### 1 [id number] #### [facility] [address] [place] [address] 74248 CBC w/ Auto Diffon 3 Erythrocyte distribution width (RBC) [Ratio] 13.1 % Normal 10.9-14.2 [facility] Comment on above: Performed By: #### 1 [id number] #### [facility] [address] [place] [address] 11356 Hematocrit (Bld) [Volume fraction] 39.2 % Normal 37.7-49.0 [facility] Comment on above: Performed By: #### 1 [id number] #### [facility] [address] [place] [address] 89267 Hemoglobin (Bld) [Mass/Vol] 13.4 g/dL Low 13.5-17.5 [facility] Comment on above: Performed By: #### 1 [id number] #### [facility] [address] [place] [address] 40463 MCH (RBC) [Entitic mass] 29.0 pg Normal 27.0-34.0 [facility] Comment on above: Performed By: #### 1 [id number] #### [facility] [address] [place] [address] 80582 MCHC (RBC) [Mass/Vol] 34.3 g/dL Normal 31.4-36.0 [facility] Comment on above: Performed By: #### 1 [id number] #### [facility] [address] [place] [address] MCV (RBC) [Entitic vol] 84.6 fL Normal 80.0-100.0 [facility] Comment on above: Performed By: #### 1 [id number] #### [facility] [address] [place] [address] Platelet mean volume (Bld) [Entitic vol] 7.7 fL Normal 6.4-10.8 [facility] Comment on above: Performed By: #### 1 [id number] #### [facility] [address] [place] [address] Platelets (Bld) [#/Vol] 261.0 E9/L Normal 150.0-500. 0 [facility] Comment on above: Performed By: #### 1 [id number] #### [facility] [address] [place] [address] RBC (Bld) [#/Vol] 4.6 E12/L Normal 4.3-5.9 [facility] Comment on above: Performed By: #### 1 [id number] #### [facility] [address] [place] [id number] WBC corrected for nucl RBC Auto (Bld) [#/Vol] 7.1 E9/L Normal 4.0-11.0 [facility] Comment on above: Performed By: #### 1 [id number] #### [facility] [address] [place] [id number] CHEMISTRYOrdered By: SYSTEM SYSTEM on 03-07-2023 CRP [Mass/Vol] 1.8 mg/dL Normal <=1.9mg/dL [facility] Remis ol CRPon 03-07-2023 CRP [Mass/Vol] 1.8 mg/dL Normal <=1.9 [facility] Comment on above: Performed By: #### 1 [id number] #### [facility] [address] [place] [address] Consent for Treatmenton Consent for Treatment [id number]#1.00TIFF Normal [facility] Erythrocyte Sedimentation Ra aniya 03-07-2023 ESR (Bld) [Velocity] 9 mm/h Normal 0-19 [facility] Comment on above: Result Comment: PERF ORMED BY: [place] [address] PATHOLOGIST PRODUCTION BOW MAKER BARI GREENE M.D. Performed By: #### E #### [address] Erythrocyte sedimentation ra te by Photometric methodOrdered By: Huan Cowan on 03-07-2023 ESR Photometric method (Bld) [Velocity] 9 mm/hr 0-19 [facility] HEMATOLOGYOrdered By: SYSTEM SYSTEM on 03-07-2023 [...] 7.7 fL Normal 6.4 - 10.8 fL [facility] HemeAutoSS Platelets (Bld) [#/Vol] 261.0 E9/L Normal 150.0 - 500.0 E9/L FT [facility]eAutoSS RBC (Bld) [#/Vol] 4.6 E12/L Normal 4.3 - 5.9 E12/L FT [facility]eAutoSS WBC corrected for nucl RBC Auto (Bld) [#/Vol] 7.1 E9/L Normal 4.0 - 11.0 E9/L [facility] HemeAutoSS Lab Miscellaneous-LCon 03-07 Test Code 851838 Invalid Interpretation Code [facility] Comment on above: Performed By: #### 1 [id number] #### [facility] [address] [place] [address] Test Code TO [facility] Invalid Interpretation Code [facility] Comment on above: Performed By: #### 1 [id number] #### [facility] [address] [place] [address] Test Name IL 6 Invalid Interpretation Code [facility] Comment on above: Performed By: #### 1 [id number] #### [facility] [address] [place] [address] Test Name SED RATE/FIREAL Invalid Interpretation Code [facility] Comment on above: Performed By: #### 1 [id number] #### [facility] [address] [place] [address] Physician Orderon 03-07-2023 Physician Order [id number]#1.00TIFF Normal [facility] Reference Laboratory Testing Ordered By: Yasmeen Ca on 03-07-2023 Sodium [Moles/Vol] 300026 mmol/L Invalid Interpretation Code [facility] SendOutsSS Test Code TO [facility] Invalid Interpretation Code [facility] Test Name SED RATE/FIREAL Invalid Interpretation Code [facility] Send[facility]s Test Name [place] 6 Invalid Interpretation Code [facility] Operative Reporton Operative Report [id number]#1.00TIFF Normal [facility] Formson 02-27-2023 Forms [id number]#1.00TIFF Normal [facility] Provider Letteron 02-27-2023 Provider Letter (Inserted Image. Jessica ble to display) [address] [place] [address] February 27, 2023 NEHAL BAIG [address] [place] [address] : [address] Mazariegos, The above patient has been evaluated at your request for preoperative clearance. After assessment of available pertinent labs and diagnostic tests, I feel this patient is medically optimized for surgery. Final discretion of whether the patient is cleared for surgery remains up to the surgeon/anesthesiologist. Thank you, MOSHE Mota Normal [facility] Auto Diffon 02-26-2023 Basophils/100 WBC (Bld) 0.6 % Normal 0.0-2.0 [facility] Comment on above: Order Comment: Order Added by Discern Expert. Performed By: #### 1 [id number] #### [facility] [address] [place] [address] Basophils/Leukocytes Auto (Bld) [Pure # fraction] 0.1 E9/L Normal 0.0-0.2 [facility] Comment on above: Order Comment: Order Added by Discern Expert. Performed By: #### 1 [id number] #### [facility] [address] [place] [address] Eosinophils/100 WBC (Bld) 2.3 % Normal 0.0-8.0 [facility] Comment on above: Order Comment: Order Added by Discern Expert. Performed By: #### 1 [id number] #### [facility] [address] [place] [address] 28771 Eosinophils/Leukocyt es Auto (Bld) [Pure # fraction] 0.2 E9/L Normal 0.0-0.5 [facility] Comment on above: Order Comment: Order Added by Wilbert Expert. Performed By: #### 1 [id number] #### [facility] [address] [place] [address] 69404 Lymphocytes/100 WBC (Bld) 16.2 % Normal 14.0-50.0 [facility] Comment on above: Order Comment: Order Added by Wilbert Expert. Performed By: #### 1 [id number] #### [facility] [address] [place] [address] 07633 Lymphocytes/Leukocyt es Auto (Bld) [Pure # fraction] 1.5 E9/L Normal 1.0-4.0 [facility] Comment on above: Order Comment: Order Added by Discern Expert. Performed By: #### 1 [id number] #### [facility] [address] [place] [address] 37891 Monocytes/100 WBC (Bld) 6.8 % Normal 4.0-14.0 [facility] Comment on above: Order Comment: Order Added by Discern Expert. Performed By: #### 1 [id number] #### [facility] [address] [place] [address] 42700 Monocytes/Leukocytes Auto (Bld) [Pure # fraction] 0.6 E9/L Normal 0.2-1.0 [facility] Comment on above: Order Comment: Order Added by Discern Expert. Performed By: #### 1 [id number] #### [facility] [address] [place] [address] Neutrophils/100 WBC (Bld) 74.1 % Normal 36.0-75.0 [facility] Comment on above: Order Comment: Order Added by Discern Expert. Performed By: #### 1 [id number] #### [facility] [address] [place] [address] Neutrophils/Leukocyt es Auto (Bld) [Pure # fraction] 6.6 E9/L Normal 2.0-7.5 [facility] Comment on above: Order Comment: Order Added by Discern Expert. Performed By: #### 1 [id number] #### [facility] [address] [place] [address] 18771 CBC w/ Auto Diffon Erythrocyte distribution width (RBC) [Ratio] 13.6 % Normal 10.9-14.2 [facility] Comment on above: Performed By: #### 1 [id number] #### [facility] [address] [place] [address]777 Hematocrit (Bld) [Volume fraction] 40.5 % Normal 37.7-49.0 [facility] Comment on above: Performed By: #### 1 [id number] #### [facility] [address] [place] [address] 03949 Hemoglobin (Bld) [Mass/Vol] 13.9 g/dL Normal 13.5-17.5 [facility] Comment on above: Performed By: #### 1 [id number] #### [facility] [address] [place] [address] MCH (RBC) [Entitic mass] 28.9 pg Normal 27.0-34.0 [facility] Comment on above: Performed By: #### 1 [id number] #### [facility] [address] [place] [address] MCHC (RBC) [Mass/Vol] 34.3 g/dL Normal 31.4-36.0 [facility] Comment on above: Performed By: #### 1 [id number] #### [facility] [address] [place] [address] 21138 MCV (RBC) [Entitic vol] 84.2 fL Normal 80.0-100.0 [facility] Comment on above: Performed By: #### 1 [id number] #### [facility] [address] [place] [address] 08790 Platelet mean volume (Bld) [Entitic vol] 7.7 fL Normal 6.4-10.8 [facility] Comment on above: Performed By: #### 1 [id number] #### [facility] [address] [place] [address] 56580 Platelets (Bld) [#/Vol] 244.0 E9/L Normal 150.0-500. 0 [facility] Comment on above: Performed By: #### 1 [id number] #### [facility] [address] [place] [address] 22178 RBC (Bld) [#/Vol] 4.8 E12/L Normal 4.3-5.9 [facility] Comment on above: Performed By: #### 1 [id number] #### [facility] [address] [place] [address] 30858 WBC corrected for nucl RBC Auto (Bld) [#/Vol] 8.9 E9/L Normal 4.0-11.0 [facility] Comment on above: Performed By: #### 1 [id number] #### [facility] [address] [place] [address] Consent for Treatmenton 01-31 Consent for Treatment [id number]#1.00TIFF Normal [facility] HEMATOLOGYOrdered By: SYSTEM SYSTEM on 02-26-2023 Basophils/100 [...] 244.0 E9/L Normal 150.0 - 500.0 E9/L [facility] HemeAutoSS RBC (Bld) [#/Vol] 4.8 E12/L Normal 4.3 - 5.9 E12/L [facility] HemeAutoSS WBC corrected for nucl RBC Auto (Bld) [#/Vol] 8.9 E9/L Normal 4.0 - 11.0 E9/L [facility] HemeAutoSS Physician Orderon 02-26-2023 Physician Order [id number]#1.00TIFF Normal [facility] CHEMISTRYOrdered By: SYSTEM SYSTEM on 02-25-2023 CRP [Mass/Vol] 6.7 mg/dL High <=1.9mg/dL [facility] Remis ol CRPon 02-25-2023 CRP [Mass/Vol] 6.7 mg/dL High <=1.9 [facility] Comment on above: Performed By: #### 1 [id number] #### [facility] Laboratory [address] [place] [address] Consent for Treatmenton 01-31 Consent for Treatment [id number]#1.00TIFF Normal [facility] ED Note-Physicianon 02-26-20 ED Note-Physician [id number]#1.00TIFF Normal [facility] Lab Miscellaneous-LCon 02-25 Test Code 784308 Invalid Interpretation Code [facility] Comment on above: Performed By: #### 1 [id number] #### [facility] Laboratory [address] [place] [address] Test Name Interleukin-6 Invalid Interpretation Code [facility] Comment on above: Performed By: #### 1 [id number] #### [facility] [address] [place] [address] Physician Orderon 02-25-2023 Physician Order [id number]#1.00TIFF Normal [facility] RAD - MISCon 02-25-2023 RAD - MISC [id number]#1.00TIFF Normal [facility] Reference Laboratory Testing Ordered By: Elysia Oseguera on 02-25-2023 Sodium [Moles/Vol] 164219 mmol/L Invalid Interpretation Code [facility] SendOuts Test Name Interleukin-6 Invalid Interpretation Code [facility] SendOutsSS Consultation Noteon 02-20-20 Consultation Note [id number]#1.00TIFF Normal [facility] Operative Reporton 3 Operative Report [id number]#1.00TIFF Normal [facility] Consultation Noteon 01-30-20 Consultation Note [id number]#1.00TIFF Normal [facility] RAD - MRI Reporton 3 RAD - MRI Report [id number]#1.00TIFF Normal [facility] XR cerv spine AP/LAT/FLX/EXT on 01-17-2023 XR cerv spine AP/LAT/FLX/[place] [address] XRay Report Signed Patient: Nehal Baig MR#: [id number] 8 : 1970 Acct:[id number] Age/Sex: 52 / M ADM Date: 01/17/23 Loc: XD Room: Type: [facility] Attending Dr: Siri MALONEY Copies to: HAIDER [...] Khadijah Roach M.D.01/17/2023 4:22 PM Dictation Location: [facility] Transcribed By: [facility] 01/17/23 162 Dictated By: Khadijah Roach MD 01/17/23 162 Signed By: 01/17/23 162 [facility] XR lumbar spine 6V w bending on 01-17-2023 XR lumbar spine 6V w bending [facility] [place] [address] XRay Report Signed Patient: Nehal Baig MR#: [id number] 8 : 1970 Acct:[id number] Age/Sex: 52 / M ADM Date: 01/17/23 Loc: XD Room: Type: [facility] Attending Dr: Siri MALONEY Copies to: HAIDER [...] Christopher Cedeno M.D.01/17/2023 12:51 PM Dictation Location: [facility] Transcribed By: [facility] 01/17/23 1251 Dictated By: Christopher Cedeno DO 01/17/23 1246 Signed By: 01/17/23 1251 [facility] RAD - MISCon 01-16-2023 RAD - MIS [id number]#1.00TIFF [facility] RAD - MISC [id number]#1.00TIFF [facility] Lab Reportson 01-14-2023 Lab Reports [id number]#1.00TIFF [facility] Lab Reports [id number]#1.00TIFF [facility] Retail - Clinical Noteon Retail - Clinical Note [id number]#1.00TIFF [facility] Ambulatory Visit Summaryon 1 Ambulatory Visit [...] Depression Obesity shoulder pain sleep disorder Normal [facility] XR ankle LT min 3V*on 2022 XR ankle LT min 3V* [facility] Other XR ankle LT min 3V* [facility] Other XR ankle LT min 3V* [address] [place] [address] [employer] Other XR ankle LT min 3V* [place] [address] [facility] Other XR ankle LT min 3V* XRay Report Nort [facility] Other XR ankle LT min 3V* Signed [facility] Other XR ankle LT min 3V* Patient: Nehal Baig MR#: [id number] [facility] Other XR ankle LT min 3V* 8 [facility] Other XR ankle LT min 3V* : 1970 Acct:[id number] [facility] Other XR ankle LT min 3V* Age/Sex: 52 / M ADM Date: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 [facility] Address: [address] Performed By: #### 5 8410-2 ####[facility] LABCLIA [id number] [place] [address] [place] WBC (Bld) [#/Vol] 6.46 10*3/uL Normal 3.70-11.00 [facility] Comment on above: Order Comment: Speci men Type: BLOOD SPECIMENOrdering Facility: [facility] Address: [address] [place], [place] [address] Performed By: #### 5 8410-2 ####[facility] LABCLIA [id number] [place] [address] [place] Comprehensive metabolic 2000 panelon 02-10-2022 Albumin [Mass/Vol] 4.5 g/dL Normal 3.9-4.9 [facility] Comment on above: Order Comment: Speci men Type: BLOOD SPECIMENOrdering Facility: [facility] Address: [address] [place], [place] [address] Performed By: #### 3 016-3, 90886-2 ####[facility] LABCLIA [id number] [place] [address] [place]#### 28689-5 ####[facility] LABCLIA [id number] [facility] [place] [id number] [facility] LABORATORYCLIA [id number] [place] [address] [place] ALP [Catalytic activity/Vol] 85 U/L Normal 38-113 [facility] Comment on above: Order Comment: Speci men Type: BLOOD SPECIMENOrdering Facility: [facility] Address: [address] [place] [address] Performed By: #### 3 016-3, 55011-1 ####[facility] LABCLIA [id number] [place] [address] [place]#### 35417-0 ####[facility] LABCLIA [id number] [address] STATES OF [facility] LABORATORYCLIA [id number] [place] [address] [place] ALT [Catalytic activity/Vol] 34 U/L Normal 10-54 [facility] Comment on above: Order Comment: Speci men Type: BLOOD SPECIMENOrdering Facility: [facility] Address: [address] Performed By: #### 3 016-3, 55473-3 ####[facility] LABCLIA [id number] [place] [address] [place]#### 02606-2 ####[facility] LABCLIA [id number] [place] [address] [place] [facility] [place] LABORATORYCLIA [id number] [place] [address] [place] Anion gap [Moles/Vol] 10 mmol/L Normal 9-18 [facility] Comment on above: Order Comment: Speci men Type: BLOOD SPECIMENOrdering Facility: [facility] Address: [address] [place] [address] Performed By: #### 3 016-3, 46493-8 ####[facility] LABCLIA [id number] [place] [address] [place]#### 91979-7 ####[facility] LABCLIA [id number] [address] [place] LABORATORYCLIA [id number] [place] [address] [place] AST [Catalytic activity/Vol] 25 U/L Normal 14-40 [facility] Comment on above: Order Comment: Speci men Type: BLOOD SPECIMENOrdering Facility: [facility] Address: [address] Performed By: #### 3 016-3, 18890-6 ####[facility] LABCLIA [id number] [place] [address] [place]#### 65232-4 ####[facility] LABCLIA [id number] [address] STATES OF [facility] [place] LABORATORYCLIA [id number] [place] [address] [place] Bilirubin [Mass/Vol] 0.4 mg/dL Normal 0.2-1.3 [facility] Comment on above: Order Comment: Speci men Type: BLOOD SPECIMENOrdering Facility: [facility] Address: [address] [place] [address] Performed By: #### 3 016-3, 63365-5 ####[facility] LABCLIA [id number] [place] [address] [place]#### 90066-5 ####[facility] LABCLIA [id number] [place] [id number] [place] [facility] [place] LABORATORYCLIA [id number] [place] [address] [place] Calcium [Mass/Vol] 9.3 mg/dL Normal 8.5-10.2 [facility] Comment on above: Order Comment: Speci men Type: BLOOD SPECIMENOrdering Facility: [facility] Address: [address] [place] [address] Performed By: #### 3 016-3, ####[facility] LABCLIA [id number] [facility] [place] [id number] [place]#### 32364-2 ####[facility] LABCLIA [id number] [facility] [place] [id number] [place] [facility] [place] LABORATORYCLIA [id number] [place] [address] [place] Chloride [Moles/Vol] 103 mmol/L Normal 97-105 [facility] Comment on above: Order Comment: Speci men Type: BLOOD SPECIMENOrdering Facility: [facility] Address: [address] [place] [address] Performed By: #### 3 016-3, ####[facility] LABCLIA [id number] [facility] [place] [id number] [place]#### 58183-3 ####[facility] LABCLIA [id number] [facility] [place] [id number] [place] [facility] [place] [facility]ORATORYCLIA [id number] [place] [address] [place] CO2 [Moles/Vol] 26 mmol/L Normal 22-30 [facility] Comment on above: Order Comment: Speci men Type: BLOOD SPECIMENOrdering Facility: [facility] Address: [address] [place] [id number] Performed By: #### 3 016-3, ####[facility] LABCLIA [id number] [facility] [place] [id number] [place]#### 03919-0 ####[facility] LABCLIA [id number] [address] LABORATORYCLIA [id number] [place] [address] [place] [facility] Creatinine [Mass/Vol] 0.90 mg/dL Normal 0.73-1.22 [facility] Comment on above: Order Comment: Speci men Type: BLOOD SPECIMENOrdering Facility: [facility] Address: [address] [place] [address] Performed By: #### 3 016-3, ####[facility] LABCLIA [id number] [address] STATES [facility]#### 74[address]-9 ####[facility] LABCLIA [id number] [address] LABORATORYIA [id number] [address] [place] [facility] [facility] ESTIMATED GLOMERULAR FILTRATION RATE 105 mL/min/1.73m??? Normal >=60 [facility] Comment on above: Order Comment: Speci men Type: BLOOD SPECIMENOrdering Facility: [facility] Address: [address] [place] [address] Result Comment: Halle mated Glomerular Filtration Rate [...] actual GFR. Performed By: #### 3 016-3, ####[facility] LABCLIA [id number] [address] [place]#### 41391-2 ####[facility] LABCLIA [id number] [address] LABORATORYCLIA [id number] [place] [address] [place] Glucose [Mass/Vol] 115 mg/dL High 74-99 [facility] Comment on above: Order Comment: Tessa flores Type: BLOOD SPECIMENOrdering Facility: [facility] Address: [address] [address] Result Comment: The [place] Diabetes Association (ADA) provides guidance for cutoff [...] Standards of Medical Care in Diabetes 2016, [place] Diabetes Association. Diabetes Care. 2016.39(Suppl 1). Performed By: #### 3 016-3, ####[facility] LABCLIA [id number] [place] [address] [place]#### 36014-2 ####[facility] LABCLIA [id number] [place] [address] [place] [facility] LABORATORYCLIA [id number] [place] [address] [place] Potassium [Moles/Vol] 4.2 mmol/L Normal 3.7-5.1 [facility] Comment on above: Order Comment: Tessa flores Type: BLOOD SPECIMENOrdering Facility: [facility] Address: [address] [place] [address] Performed By: #### 3 016-3, ####[facility] LABCLIA [id number] [place] [address] [place]#### 20314-5 ####[facility] LABCLIA [id number] [address] STATES OF [facility] LABORATORYCLIA [id number] [place] [address] [place] Protein [Mass/Vol] 6.9 g/dL Normal 6.3-8.0 [facility] Comment on above: Order Comment: Speci men Type: BLOOD SPECIMENOrdering Facility: [facility] Address: [address] [address] Performed By: #### 3 016-3, 57504-8 ####[facility] LABCLIA [id number] [place] [address] [place]#### 79429-5 ####[facility] LABCLIA [id number] [address] STATES [facility] LABORATORYCLIA [id number] [place] [address] [place] Sodium [Moles/Vol] 139 mmol/L Normal 136-144 [facility] Comment on above: Order Comment: Speci men Type: BLOOD SPECIMENOrdering Facility: [facility] Address: [address] Performed By: #### 3 016-3, 65428-9 ####[facility] LABCLIA [id number] [place] [address] [place]#### 93973-3 ####[facility] LABCLIA [id number] [place] [id number] [place] [facility] [place] LABORATORYCLIA [id number] [place] [address] [place] Urea nitrogen [Mass/Vol] 15 mg/dL Normal 9-24 [facility] Comment on above: Order Comment: Speci men Type: BLOOD SPECIMENOrdering Facility: [facility] Address: [address] Performed By: #### 3 016-3, 97698-1 ####[facility] LABCLIA [id number] [address] [address] [place]#### 34764-6 ####[facility] LABIA [id number] [address] [address] [place] [facility] [place] LABORATORYCLIA [id number] [place] [address] [facility] HbA1c (Bld)on 02-10-2022 Average glucose Estimated from glycated hemoglobin (Bld) [Mass/Vol] 105 mg/dL Normal [facility] Comment on above: Order Comment: Tessa flores Type: BLOOD SPECIMENOrdering Facility: [facility] Address: [address] [place] [address] Result Comment: eAG: (Estimated average glucose) is a calculated value from HgbA1c and is provider service representative of the average blood glucose level in the last 2-3 month period. Performed By: #### 5 5454-3 ####[facility] LABIA [id number] [address] HbA1c (Bld) [Mass fraction] 5.3 % Normal 4.3-5.6 [facility] Comment on above: Order Comment: Tsesa flores Type: BLOOD SPECIMENOrdering Facility: [facility] Address: [address] [place] [address] Result Comment: Amer [place] Diabetes Association guidelines indicate that patients with HgbA1c in the range 5.7-6.4% are at increased risk for development of diabetes, and intervention by lifestyle modification may be beneficial. HgbA1c greater or equal to 6.5% is considered diagnostic of diabetes. Performed By: #### 5 5454-3 ####[facility] LABIA [id number] [address] OF [facility] Lipid 1996 panelon 2 Cholesterol [Mass/Vol] 179 mg/dL Normal <200 [facility] Comment on above: Order Comment: Tessa flores Type: BLOOD SPECIMENOrdering Facility: [facility] Address: [address] [place], [place] [address] Result Comment: <200 mg/dL, Desirable 200-239 mg/dL, Borderline high >239 mg/dL, High Performed By: #### 3 016-3, 77596-7 ####[facility] LABCLIA [id number] [place] [address] [place]#### 73203-5 ####[facility] LABCLIA [id number] [address] OF [facility] [place] LABORATORYCLIA [id number] [address] Cholesterol in HDL [Mass/Vol] 36 mg/dL Low >39 [facility] Comment on above: Order Comment: Speci men Type: BLOOD SPECIMENOrdering Facility: [facility] Address: [address] [place], [place] [address] Result Comment: 40-5 9 mg/dL, Acceptable >59 mg/dL, High: Negative risk factor for coronary heart disease <40 mg/dL, Low: Positive risk factor for coronary heart disease Performed By: #### 3 016-3, 19630-2 ####[facility] LABCLIA [id number] [address] [place]#### 33827-4 ####[facility] LABCLIA [id number] [address] STATES OF [facility] [place] LABORATORYCLIA [id number] [place] [address] [place] Cholesterol in LDL [Mass/Vol] 104 mg/dL High <100 [facility] Comment on above: Order Comment: Speci men Type: BLOOD SPECIMENOrdering Facility: [facility] Address: [address] [place] [address] Result Comment: <100 mg/dL, Optimal 100-129 mg/dL, Near optimal/above optimal 130-159 mg/dL, Borderline high 160-189 mg/dL, High >189 mg/dL, Very high Secondary prevention optimal LDL Cholesterol levels are recommended to be < 70 mg/dL Performed By: #### 3 016-3, 87730-0 ####[facility] LABCLIA [id number] [address]#### [address]-8 ####[facility] LABCLIA [id number] [address] LABORATORYIA [id number] [address] Cholesterol in LDL/Cholesterol in HDL [Mass ratio] 2.89 {ratio} High <2.54 [facility] Comment on above: Order Comment: Speci men Type: BLOOD SPECIMENOrdering Facility: [facility] Address: [address] [place] [address] Result Comment: Refe rence: 1. National Cholesterol Education Program ATP III Guideline At-A-Glance Quick Desk Reference: National Heart, Lung, and Blood [place]. National Institutes of Health. 2001: NIH Publication No. 01-3305. 2. An International Atherosclerosis Society position paper: global recommendations for the management of dyslipidemia: executive summary, Atherosclerosis. 2014: 232(2):410-413. Performed By: #### 3 016-3, ####[facility] LABCLIA [id number] [address]#### 020[address]-7 ####[facility] LABCLIA [id number] [address] LABORATORYCLIA [id number] [address] Cholesterol in VLDL [Mass/Vol] 39 mg/dL High <30 [facility] Comment on above: Order Comment: Speci men Type: BLOOD SPECIMENOrdering Facility: [facility] Address: [address] [address] Performed By: #### 3 016-3, 97586-3 ####[facility] LABCLIA [id number] [address] [address] [place]#### 87252-4 ####[facility] LABCLIA [id number] [address] [address] [place] [facility] [place] LABORATORYCLIA [id number] [place] [address] [place] Cholesterol non HDL [Mass/Vol] 143 mg/dL High <130 [facility] Comment on above: Order Comment: Speci men Type: BLOOD SPECIMENOrdering Facility: [facility] Address: [address] [place] [address] Result Comment: <130 mg/dL, Optimal 130-159 mg/dL, Near optimal/above optimal 160-189 mg/dL, Borderline high 190-219 mg/dL, High >219 mg/dL, Very high Secondary prevention optimal non HDL Cholesterol levels are recommended to be <100 mg/dL Performed By: #### 3 016-3, 51055-6 ####[facility] LABCLIA [id number] [place] [address] [place]#### 46717-6 ####[facility] LABCLIA [id number] [address] [place] [address] [place] [facility] LABORATORYCLIA [id number] [place] [address] [place] Cholesterol.total/Ch olesterol in HDL [Mass ratio] 4.97 {ratio} Normal <5.10 [facility] Comment on above: Order Comment: Speci men Type: BLOOD SPECIMENOrdering Facility: [facility] Address: [address] [address] Performed By: #### 3 016-3, 07752-7 ####[facility] LABCLIA [id number] [address] [address] [place]#### 76862-7 ####[facility] LABCLIA [id number] [address] [place] LABORATORYCLIA [id number] [place] [address] [place] FASTING TIME 12 hrs Normal [facility] Comment on above: Order Comment: Speci men Type: BLOOD SPECIMENOrdering Facility: [facility] Address: [address] [place] [address] Performed By: #### 3 016-3, 04836-2 ####[facility] LABCLIA [id number] [place] [address] [place]#### 27503-7 ####[facility] LABCLIA [id number] [address] STATES [facility] LABORATORYCLIA [id number] [place] [address] [place] Triglyceride [Mass/Vol] 197 mg/dL High <150 [facility] Comment on above: Order Comment: Speci men Type: BLOOD SPECIMENOrdering Facility: [facility] Address: [address] [place] [address] Result Comment: <150 mg/dL, Normal 150-199 mg/dL, Borderline high 200-499 mg/dL, High >499 mg/dL, Very high Performed By: #### 3 016-3, 30095-1 ####[facility] LABCLIA [id number] [place] [address] [place]#### 61632-4 ####[facility] LABCLIA [id number] [place] [address] [place] [facility] LABORATORYCLIA [id number] [place] [address] [place] PSA/PROSTSPECAG SCRNon 02-10 Prostate specific Ag [Mass/Vol] 0.42 ng/mL Normal <2.60 [facility] Comment on above: Order Comment: Speci men Type: BLOOD SPECIMENOrdering Facility: [facility] Address: [address] [address] Result Comment: Tota l PSA test methodology used is the Electrochemiluminescence Immunoassay by [employer]. Total PSA values by differing methodologies cannot be interchanged. Performed By: #### P SAS1 ####[facility] LABCLIA [id number] [address] [place] TSH SerPl-aCncon 02-10-2022 TSH Qn 1.220 m[IU]/L Normal 0.270-4.20 0 [facility] Comment on above: Order Comment: Speci men Type: BLOOD SPECIMENOrdering Facility: [facility] Address: [address] [place] [address] Performed By: #### 3 016-3, 43774-9 ####[facility] LABCLIA [id number] [place] [address] [place]#### 96989-9 ####[facility] LABCLIA [id number] [address] STATES OF [facility] LABORATORYCLIA [id number] [place] [address] [place] URINALYSIS, REFLEX MICROSCOP ICon 02-10-2022 Bilirubin Ql (U) Negative Normal Negative [facility] Comment on above: Order Comment: Speci men Type: URINE SPECIMENOrdering Facility: [facility] Address: [address] [address] Performed By: #### L [id number] ####[facility] LABCLIA [id number] [address] [place] CALCIUM OXALATE CRYSTALS (UA) Few Abnormal None Seen [facility] Comment on above: Order Comment: Speci men Type: URINE SPECIMENOrdering Facility: [facility] Address: [address] [address] Performed By: #### L [id number] ####[facility] LABCLIA [id number] [address] [place] Clarity (Unsp spec) Clear Normal Clear Angelo [facility] Comment on above: Order Comment: Speci men Type: URINE SPECIMENOrdering Facility: [facility] Address: [address] [address] Performed By: #### L [id number] ####[facility] LABIA [id number] [address] STATES OF [facility] Color (U) Yellow Normal Yellow [facility] Comment on above: Order Comment: Speci men Type: URINE SPECIMENOrdering Facility: [facility] Address: [address] [place] [address] Performed By: #### L [id number] ####[facility]PRO[facility] [id number] [address] OF [facility] Epithelial cells LM.HPF (Urine sed) [#/Area] Few Normal [facility] Comment on above: Order Comment: Speci men Type: URINE SPECIMENOrdering Facility: [facility] Address: [address] [place] [address] Result Comment: Few Performed By: #### L [id number] ####[facility] LABIA [id number] [address] [place] Glucose Test strip (U) [Mass/Vol] Negative Normal Negative [facility] Comment on above: Order Comment: Speci men Type: URINE SPECIMENOrdering Facility: [facility] Address: [address] [place], [place] [address] Performed By: #### L [id number] ####[facility] LABIA [id number] [address] [place] Hemoglobin Ql (U) Negative Normal Negative [facility] Comment on above: Order Comment: Speci men Type: URINE SPECIMENOrdering Facility: [facility] Address: [address] [place] [address] Performed By: #### L [id number] ####[facility] LABCLIA [id number] [place] [address] [place] Ketones Ql (U) Negative Normal Negative [facility] Comment on above: Order Comment: Speci men Type: URINE SPECIMENOrdering Facility: [facility] Address: [address] [place], [place] [address] Performed By: #### L [id number] ####[facility] LABCLIA [id number] [place] [address] [place] Leukocyte esterase Test strip Ql (U) 75 Joyce/mL Abnormal Negative [facility] Comment on above: Order Comment: Speci men Type: URINE SPECIMENOrdering Facility: [facility] Address: [address] [place], [place] [address] Performed By: #### L [id number] ####[facility] LABCLIA [id number] [address] [place] Nitrite Ql (U) Negative Normal Negative [facility] Comment on above: Order Comment: Speci men Type: URINE SPECIMENOrdering Facility: [facility] Address: [address] [place], [place] [address] Performed By: #### L [id number] ####[facility] LABIA [id number] [place] [address] [place] pH (U) 6.0 [pH] Normal 5.0-8.0 [facility] Comment on above: Order Comment: Speci men Type: URINE SPECIMENOrdering Facility: [facility] Address: [address] [place], [place] [address] Performed By: #### L [id number] ####[facility] LABIA [id number] [place] [address] [place] Protein (U) [Mass/Vol] 1+ Abnormal Negative [facility] Comment on above: Order Comment: Speci men Type: URINE SPECIMENOrdering Facility: [facility] Address: [address] [place] [address] Performed By: #### L [id number] ####[facility] LABIA [id number] [address] STATES [facility] RBC LM.HPF (Urine sed) [#/Area] 0-3 /HPF Normal 0-3 /HPF [facility] Comment on above: Order Comment: Speci men Type: URINE SPECIMENOrdering Facility: [facility] Address: [address] [place] [address] Performed By: #### L [id number] ####[facility] [id number] [place] [address] [place] Specific gravity (U) [Rel density] 1.037 High 1.005-1.03 0 [facility] Comment on above: Order Comment: Speci men Type: URINE SPECIMENOrdering Facility: [facility] Address: [address] [place] [address] Performed By: #### L [id number] ####[facility] [id number] [address] Urobilinogen Ql (U) 1+ Abnormal Negative [facility] Comment on above: Order Comment: Speci men Type: URINE SPECIMENOrdering Facility: [facility] Address: [address] [place], [place] [address] Performed By: #### L [id number] ####[facility] LABIA [id number] [address] [place] WBC LM.HPF (Urine sed) [#/Area] 0-5 /HPF Normal 0-5 /HPF [facility] Comment on above: Order Comment: Speci men Type: URINE SPECIMENOrdering Facility: [facility] Address: [address] [place] [address] Performed By: #### L [id number] ####[facility] LABIA [id number] [address] [address] [place] Outside Recordson 02-09-2022 Outside Records [id number][facility] Outside Recordson 01-24-2022 Outside Records [id number]#1.00[facility] Coding Summaryon 01-04-2022 Coding Summary HTMLBase 64 IzcahlupNPr0mCi+PGhlYWQ+PE 0SMLOhN68vkXPluR6XN0xFJU5D MUXRDQIBDW7LII8yyUP0VYtoO8 VybiAv PryegZTpWU93LWm5TIB0eShcHX lptO3riHCeE1c4YsXdCC85tE12 YNdcCVSaDjC3BiInqqhrsTOq E2awCwWmzVDpKxo+PHRhYmxlIH plLGWoJTdiWYGzFqPugLjfFS9r Zm4dKIOqEBEvjCygoKLhUxRa d5xdQFNvPRjcLQ2rzTffB1QpwJ D1OJMew2n1Ge96sVJ+PHRkIHN0 bIxcBVdiu940ZtJxz6uxVAG6 lVPlGKloUDV2J55yh8T8RGBmHN JhHHV7jPX9sV8miVctpozcH6Rq aPNuMqZ5HJF7sYMwqH1jfCal pjbljD9ySwr+U70VPF1BZFSITX 4ZEbs5O0HvWfcvzCT+JN93FATp QS28dVYvwJVgn9fiySa8PqAg NRWvHSV7qNeiOKovw2TmRXDrE7 4qmSQfh9D3HQWtmBzpmUKrWsZm nQK2jN7lVLawmrpsn5jkrofd Rtzpn4zxpi01fN72T60rSBcmXY CiOOH7GMIeFCUtpRfovf0wdK7g Ii8+BOkpt9lgf6aaqMp7YyDc LGTwcxGvoZjdMHO3d3WdPq47O0 WtgJiob0DpVzw0lm83qQRpn0P3 hZF0GKhxZHTqyC5cSVyuTjJ3 PWPlDiEunI22sPIiXYfoVy1dzQ jxsEqqIV6tEVCdrvqrDRQifX2u PFXvsPQobGsuMX7rKQDcjpst a754FxFmDLO6NHDniJLdY2HgeZ 6bJgYfKOZjNFIvG9ZgeHMuJCsr O683GMocGtU8EKCbiiRjK7Bw ORYybVmeWbM8c3B3Vs8Xh2Osba dfUYM8DCofRLMoCuO6WeLnToH3 S3TcUdy3CEGfiSyyVX7qL3Ng CZEewsaccngdsMO0EIToEPLgqY 35iIChDOxsPq3iq6V0u727UMWj RXZdgS47Wp8lbTtjWJXjqIWF mI0ypwuhp8dqonsnVqBnZLTvOW z0MGr0YXXbbJqyJdWlFRV2WvB0 MPX8oBTbmJ7tkRjyffxncY0m Oyc+R32seB3hAZG8FEK5bngbNE AaxaRaSE53HS31H6DwDcjnkSXi bGU+SGEltkToePpzEB2cVyEq m8wcc8EzYEgkI0ReTNXpIJrqLf j3CUDvJQT0mQW2oP1hQFIsIScs a4D5eEM4F3BrcaTdmg9sr1aa SZAsGWflX91fjMFjw4A9NOUtsZ I9LVHbaWjxEcObcJ76Nww+PGNv vNcdd3HdJvagc0fep2oogYa3 TpWaXQAbqrFcpRxhRGR3m6MhRm 38T70gPSxlUZVoMNDgMEHdBWEe oTphdy3glX7wWp2+PGNvbCB3 rAP2dW5wSGDpVdB2RZpuS423Qd QamHUgBprdi3lid6qxqAe8GgXw ULLdimKsyAnmDYG6q3EwGt52 B24gLDkxNRLgLQFnZRKsRXZxbU zicp2ibT7pIt1+DF9mm7qupl99 hR88oNX+EIDxEEC9pPbuXYyg MGWdcD7nXTsaHbL1YPNzSlTykU 80qCGtRIccOz1heJyxjBmsLK1h HXFgrvbkq087YxZuc2viWCWm dKOaVUljRMN1J40ln4I8JKLgKM AxUJT3pJH1sV4usAtlvvdgpEQg hKlxabWrkAxcGNiuKYcaH944 IHRvcDsnPlBhdGllbnQgTmFtZT n2I8OaGpa6QNNpjUntVY1gqZKj VTlfGw0vzDlfoSflPH0lTZAs vbkbl708NaVbh0adHTGfgVIhRM glEND6O56eo8U3GTSuRSQcSHP2 yFL2dD8rgLeakvqyuJNgtUzh cqDjpWdyMDxbWUlqR407FBSntF saQwKqhsWuYKSojXA0NO56RT18 qIYos6V6aCG3D0JzVNZxldbu pdbohSR1UBQuXDWrbQ80Wn1obY wwYa5mWVImKUC3YHGjwLEaK7Yf uA6wCuWtPBCxLARfV4KhvBZg WSzjQ397CYdxMgR0FLBsjjQyB7 LlBTZorMedUcK2o5N1Xe9CT1B4 NP50RT88cRHhu7A6mXP8Z4Oe RNUdqtvwtgazrHM1PSZmUAYqjZ 80Ym8hrYccKc2xWCMaMUI9AFTr vNDkI2PmuJ6nQxLzFJGfWSUb N9LkkXLnHMkeX024TRtdZrP5QV LaagFpH0WpIEWhwAcbJyE0o5G9 Pf1WHXt4PA02LH85yCQqe1F0 sIL0S2SdCAIuzvwgjiyvwSF6SM UqXQRtdY42Nz5yiStgCr8bMZHp DJJ0UYIxiUDqR7SreU7mJpIa NECdNEGaJ9JarTBhMWvwW643VF sqWfI2FSXecqKvT7WyRUXrrKqi JnV3w2C8Op9WQZJkHK30LHM1 vQO3ED17UO05T3AkHkqmjBIngN U+PHRhYmxlIHdpZHRoPScxMDAl QzMlyTnbKF5tRg5hKPMcENIt eDppwMBfFfIaf7srTETdSOkpGD 3tvQqfV9VbwSF2ZQMfq6p3Ih58 T35gP9PkmMU+TWNitQX1nTH6 kQ8bHnEuHiG7SHejZ997IcMijA CxXbclt3obq6razHz3OwP2RPNt gmSceOjvMVR1p1YuYo36A76i IHdpZHRoPSIxNSUiIHZhbGlnbj 3swS0vCc9+VGTohQR8yES5vM5l DaPcHiP9LHvbK039XuEtdAKp Nlzmc4cjm5lqkQy9CvHnVDVmec OytPziYHG8o0KlZt70Q2WrsJcn b7LvFex2ny32rIUja7G8oRX0 H7UeCBJmtahmeBQqsGvqWW1mMX PmtkwkBUYgpY3oXHPcP3c9RdEj JnR9UVkfD5BhlvQ4JITbiQUl VDbdOGJ0D63pn2A6HHFoKNFxRO O2dKO9nF7mzDsmjodzwDGenGof twUvpUexDZmrXBilO730CTEj nCxwMPEgiZ9gKCZicKPnzWtcQT 8yRBIhumwwTwpTGL6VTgjkZIPA FgHISVmTHiJ9X4ZkUsl0HWWr oJdqVY2jeHXtHGedRu6hrCzswL fkGD0xFVMxjqcxSIQxsI6hTBSd wTOzdEgaCB7xTPVztkuor109 GyTnLEG6LXLlxFUkV8BzyQ9zOy GfMHPhSGSqC3YonLJtEHixF412 VCdbCfC5HVIhvjPsF7OfLFVd lTmyXvL2x3X6Vw6uFx3nNK2gXU heGX29ZC01nLCjr9N6zIR6P5Ha FPPajeqkvunmcVM5UBLmZOGp gF20sAJaOGtjVx6kp5R9b042ZF LwUEDupI46Gg6adYtqJVLstCOT aR4glowne2hyzwfpEdKdUKGu HEm8FAp2SVKvqOfvEpCxZIY0Hp N3JSH9aTPeqO5cqGfcwarvhL3y Oyc+GHjaHYXlnrL4I2HuYia8 MVIxlWbzNY2uwOFxABxaRj8qbO xntHiqRW7xLUSfliubWKAwnR8b MEUwmWHazIqoPG6hGIHriinu d405FpGhCJO6YJMtzXAqA8RvqZ 4qAkXxNAOmJJKdQ2JdaKBsDUrb T152XQxxUvY4VAMnuhUuY1Sc JMOwhJtwBlV0f8J6Yf5ISNhKYS 66SO95lKUnt2C5rYC6N7MvGVBi nmefifcpvAR1AWItFIDhyD90 lAIpWDpbLk4jx8M9p024JMRwDW BisZ39Hv9ltNreYJIfzSVEgT3g wdrrd4tjajyxXrLnALFoGAw8 YRp4CTNykOilOcIuRKZ3SjK8AB T8kPMfvK9heXfrxrsloA1pVsy+ Q9K6L7MyFuqsjMW+ZB28YFLc AD28pENqzDBae6iglQe1IpQkNJ KqLYA4hKcjQAufl8ZkRNAvA30q mXHnq6K1WEFiwXeaiPUcWoXi kVQ4nJ7xOJwsxgjtq2owcenjYn [id number] BRGyMVOeHSNncSnxtg4cvN3o Ii8+CYXeyOS3gGS7vY5cAnCeYc C0LQrfX761TuRstVZaDtlhh8cf r5ufgCj3LfTaLRVdnaZxsIrn TQX9m5CjHw02R13zGNjgJYRiKH XuVXXmSOVciMhkeh9evW7tFy6+ QT5uj5aunc05oP42yEJ+PHRk BVM6bMmkZDbuNMFcwS8mHWarOj L5NNJnOcMxxA80hKIuFUtpEs9u jXrkhHzsHE9zKRUkkiqqf038 OhBmo5qnBAKhfEBzHZuhTQV8Z4 8pk3Y9AVUeTPGdIXC9mZP7eO9p bGlnbjogbGVmdDsgdmVydGlj EWxnJGnkK342ODBgpPauMjGcvG DhU2ukjvAMCB3uKsllbUL+PHRk ATI6jTwwMTrmYVZpbF3yZUJp F0q9YhDiLyI4BRpfJ8WujwU9TX AgjZWkTXLfbBQFmH2ekpzdo7hx pmglQvWlBWBcJPl9XEe1ZCKd wGesHyUbCHW8IhT9LDA5oOGbrT 6enXgwybgihT5oWte+RklOOjwv dGQ+YEUqGTW0vNbiQDceVYMb aR6nZDSnD4r8YtDtUsS9CRdsT7 HmjtN1DEPrtKUqXEDmbSKQiH2n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 Cutter: GREGORY Transcribe Date/Time: Sep 19 2021 3:24P Dictated by : BREANNE RICHMOND MD This examination was interpreted and the report reviewed and electronically signed by: BREANNE RICHMOND MD on Sep 19 2021 3:28PM EST [id number] Normal [facility] CAROTID BILon 09-19-2021 US CAROTID [...] the NASCET criteria IMPRESSION: 0-29% stenosis bilaterally Flow Match Sofa Cutter: GREGORY Transcribe Date/Time: Sep 19 2021 3:18P Dictated by : BREANNE RICHMOND MD This examination was interpreted and the report reviewed and electronically signed by: BREANNE RICHMOND MD on Sep 19 2021 3:24PM EST [id number] Normal [facility] US CAROTID BILATon [facility] CT CHEST WO IVCONon 09-19-19 CT CHEST [...] No abnormality in the imaged upper abdomen. Clinical Faculty (topogram) images: No additional findings. IMPRESSION: Stable pulmonary nodules including the 7 mm nodule along the minor fissure. Transcribed Using Voice Recognition Transcribe Date/Time: Sep 20 2021 2:25P Dictated by: POLY JACKSON MD This examination was interpreted and the report reviewed and electronically signed by: POLY JACKSON MD on Sep 20 2021 2:33PM EST [id number] [facility] 09-13-2021 [facility] Telephone ([employer]) -- NEHAL BAIG ([id number]) 1970 M Date Time Provider Department 09/13/21 ANH MENA During your visit today, we recorded the following information about you: Ninfa Jyotsna 09/13/2021 8:57 AM Signed MD Francisco Anguiano [address] Spec Pool 4-6 weeks with me. [...] Status:Closed by NINFA GOYAL on 11/06/21 Normal [facility] BLOOD BANKOrdered By: Darcie Medina on 08-23-2021 ABO/Rh Interp Negative Invalid Interpretation Code [facility] BB Subsection ABSC Gel Interp Negative (08/23/21 6:20 AM) Normal [facility] BB Subsection CHEMISTRYOrdered By: Lab ROP User on 08-23-2021 Glucose [Mass/Vol] 113 mg/dL High 55 - 99 mg/dL [facility] POC Subsection Comment on above: Result Comment: Jes lisandra Meter POC Device SN [id number] Invalid Interpretation Code [facility] POC Subsection POC User ID [id number] Invalid Interpretation Code [facility] POC Subsection POC Username KIMBERLEY ACKERMAN Invalid Interpretation Code [facility] POC Subsection URINALYSISOrdered By: Savannah Schneider on 08-23-2021 Bacteria LM Ql (Urine sed) Trace /HPF Normal Trace/HPF [facility] UA Auto SS Bilirubin Ql (U) Negative [...] AM) Normal Negative [facility] UA Auto SS Millry.plasma/Lithi um.RBC (Bld) [Mass ratio] 0-3 /HPF Normal [...] [facility] UA Auto SS Urobilinogen Qn (U) 1.5357065 {Sean'U}/dL Normal 0.0 - 1.0 EU/dL [facility] UA Auto SS WBC Auto Ql (U) Negative (08/23/21 7:36 AM) Normal Negative [facility] UA Auto SS WBC LM.HPF (Urine sed) [#/Area] 0-5 /HPF Normal 0-5/HPF [facility] UA Auto SS Melissa 08-15-2021 CNOV Office Visit ([facility] ) -- NEHAL BAIG ([id number]) 1970 M Date Time Provider Department 08/15/21 [...] weight gain: 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 Weight issues one year after [...] weight loss: Self-directed dieting Have you used blxj-zot-jvbjfxl or prescribed weight loss medications? No Have you had a surgical procedure for weight loss? No No flowsheet data found. No flowsheet data found. ALLERGIES: ALLERGIES No Known Allergies CURRENT MEDICATIONS: atorvastatin (LIPITOR) 20 mg tablet Take 1 tablet by mouth daily at bedtime. l (more content not included)... Normal [facility] CNOVon 08-10-2021 CNOV Office Visit ([facility] ) -- ESSENCENEHAL GAN ([id number]) 1970 M Date Time Provider Department 08/10/21 9:40 AM SALOME AGUILLON [facility] During your visit today, we recorded the following information about you: Pulse Blood pressure Weight Height 73/minute 127/77 179.6 kg 1.854 m Salome Aguillon APRN.SENIOR CLINICAL DATA COORDINATOR 08/10/2021 10:21 AM Signed This note was created using Neuronetrixriter. Subjective Nehal Baig is a 50 year [...] 2020. This is a workers comp issue-through [facility] nuria/Dr. Cowan. 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 feels these injuries have affected [...] Negative Negative Ketones, Urine Negative Negative Specific [place], Ur 1.005 - 1.030 1.025 Hemoglobin/Blood,Ur Negative [...] (H) Case Report Surgical Pathology Report Case: [id number] . . . FINAL DIAGNOSIS This result [...] Appearance: No (more content not included)... Normal [facility] BLOOD BANKOrdered By: Kat Salcedo on 08-08-2021 ABO/Rh Retype Interp Negative Invalid Interpretation Code [facility] BB Subsection CHEMISTRYOrdered By: SYSTEM SYSTEM on [...] rate/Area] mL/min/1.73 m2 Normal >=59mL/min /1.73 m2 [facility] Chem S GFR/1.73 sq M.predicted among non-blacks MDRD (S/P/Bld) [Vol rate/Area] mL/min/1.73 m2 Normal >=59mL/min /1.73 m2 [facility] Chem S Glucose [Mass/Vol] 103 mg/dL Normal [...] AM) Normal Negative [facility] UA Auto SS Millry.plasma/Lithi um.RBC (Bld) [Mass ratio] 0-3 /HPF Normal [...] [facility] UA Auto SS Urobilinogen Qn (U) 0.8534913 {Sean'U}/dL Normal 0.0 - 1.0 EU/dL [facility] UA Auto SS WBC Auto Ql (U) Negative (08/08/21 10:04 AM) Normal Negative [facility] UA Auto SS WBC LM.HPF (Urine sed) [#/Area] 0-5 /HPF Normal 0-5/HPF [facility] UA Auto SS ANES POSTPROC EVALon 022 ANES POSTPROC EVAL HNO ID: [id number] Author: Lucy Flanagan MD Service: Anesthesiology Author Type: Anesthesiologist Type: Anesthesia Postprocedure Evaluation Filed: 07/31/2021 12:56 PM Note Text: POST ANESTHESIA EVALUATION NOTE : 1970 Procedure Summary Date: 07/31/21 Room / Location: [facility] Endoscopy Anesthesia Start: 1053 Anesthesia Stop: 1145 Procedure: COLONOSCOPY DIAGNOSTIC Diagnosis: Dark stools (OTHER) Scheduled Providers: Jayy Patel MD; Cori Ashley APRN.BURNT LIME DRAWER; Lucy Flanagan MD Responsible Provider: Lucy Flanagan [...] July 31, 2021 TIME: 12:55 PM CSN: [id number] Normal [facility] ANES PRE-OPon 07-31-2021 ANES PRE-OP HNO ID: [id number] Author: Lucy Flanagan MD Service: Anesthesiology Author Type: Anesthesiologist Type: Anesthesia Preprocedure Evaluation Filed: 07/31/2021 9:50 AM Note Text: ANESTHESIOLOGY DAY OF SURGERY NOTE : 1970 Procedure Information Date/Time: 07/31/21 1030 Scheduled providers: Jayy Patel MD; Cori Ashley APRN.BURNT LIME DRAWER; Lucy Flanagan MD Procedure: COLONOSCOPY DIAGNOSTIC Location: [facility] Endoscopy Estimated body mass index is [...] and consent discussed: yes. Patient / Responsible Green Party agrees to proceed: yes Patient / [...] July 31, 2021 TIME: 9:49 AM CSN: [id number] Normal [facility] COLONOSCOPY DIAGNOSTICon [facility] HISTORY PHYSICALon HISTORY PHYSICAL HNO ID: [id number] Author: Jayy Patel MD Service: General Surgery [...] DATE: July 31, 2021 TIME: 10:58 AM [facility] SURGICAL PATHOLOGYon 022 CASE REPORT Normal [facility] Comment on above: Order Comment: Speci sandra Type: TISSUE SPECIMEN Ordering Facility: [facility] Address: [address] [place] [address] Result Comment: Surg [facility] Pathology Report Case: [id number] Authorizing Provider: Jayy Patel MD Collected: 07/31/2021 11:31 AM Ordering Location: [facility] Endoscopy Received: 07/31/2021 02:15 PM Pathologist: Luis F Quiroz MD Specimen: SIGMOID COLON POLYP Performed By: #### S #### [facility] CLIA [id number] [address] [place] [address] FINAL DIAGNOSIS Normal [facility] Comment on above: Order Comment: Speci men Type: TISSUE SPECIMEN Ordering Facility: [facility] Address: [address] [place] [address] Result Comment: Sigm oid colon polyp, biopsy: - Tubular adenoma. JEL 08/01/2021 Performed By: #### S #### [facility] CLIA [id number] FINAL PERFORMING LAB Normal [facility] Comment on above: Order Comment: Speci men Type: TISSUE SPECIMEN Ordering Facility: [facility] Address: [address] [place] [address] Result Comment: Diag nostic interpretation performed at [facility], [address] [place] [address] CLIA# [id number] Machinist Instructor: Nehal Cid M.D. Performed By: #### S #### [facility] CLIA [id number] [address] [place] [address] [place] GROSS DESCRIPTION Normal [facility] Comment on above: Order Comment: Speci men Type: TISSUE SPECIMEN Ordering Facility: [facility] Address: [address] [place] [address] Result Comment: A. S IGMOID COLON POLYP. Received in formalin are multiple pieces of kaufman, soft tissue aggregating to 1.8 x 0.3 x 0.2 cm. Totally submitted in one cassette. SS July 31, 2021 7:11 PM Gross examination performed at [facility], [address] [place] [address] Performed By: #### S #### [facility] CLIA [id number] [address] [place] [address] [place] CBC panel Auto (Bld)on 07-29 Erythrocyte distribution width (RBC) [Ratio] 12.5 % Normal 11.5-15.0 [facility] Comment on above: Order Comment: Speci men Type: URINE SPECIMEN Ordering Facility: [facility] Address: [address] [place] [address] Performed By: #### L [id number] #### [facility] CLIA [id number] [address] [place] [place] [address] [place] Hematocrit (Bld) [Volume fraction] 39.4 % Normal 39.0-51.0 [facility] Comment on above: Order Comment: Speci men Type: URINE SPECIMEN Ordering Facility: [facility] Address: [address] [place] [address] Performed By: #### L [id number] #### [facility] CLIA [id number] [address] [place] [address] [place] Hemoglobin (Bld) [Mass/Vol] 13.6 g/dL Normal 13.0-17.0 [facility] Comment on above: Order Comment: Speci men Type: URINE SPECIMEN Ordering Facility: [facility] Address: [address] [place] [address] Performed By: #### L [id number] #### [facility] CLIA [id number] [address] [place] [place] [address] [place] MCH (RBC) [Entitic mass] 29.3 pg Normal 26.0-34.0 [facility] Comment on above: Order Comment: Speci men Type: URINE SPECIMEN Ordering Facility: [facility] Address: [address] [place] [address] Performed By: #### L [id number] #### [facility] CLIA [id number] [address] [place] [place] [address] [place] [facility] MCHC (RBC) [Mass/Vol] 34.5 g/dL Normal 30.5-36.0 [facility] Comment on above: Order Comment: Speci men Type: URINE SPECIMEN Ordering Facility: [facility] Address: [address] [place] [address] Performed By: #### L [id number] #### [facility] CLIA [id number] [address] [place] [place] [address] [place] MCV (RBC) [Entitic vol] 84.9 fL Normal 80.0-100.0 [facility] Comment on above: Order Comment: Speci men Type: URINE SPECIMEN Ordering Facility: [facility] Address: [address] [place] [address] Performed By: #### L [id number] #### [facility] CLIA [id number] [address] [place] [place] [address] [place] Nucleated RBC (Bld) [#/Vol] 10*3/uL Normal <0.01 [facility] Comment on above: Order Comment: Speci men Type: URINE SPECIMEN Ordering Facility: [facility] Address: [address] [place] [address] Performed By: #### L [id number] #### [facility] CLIA [id number] [address] [place] [address] [place] Platelet mean volume (Bld) [Entitic vol] 9.9 fL Normal 9.0-12.7 [facility] Comment on above: Order Comment: Speci men Type: URINE SPECIMEN Ordering Facility: [facility] Address: [address] [place] [address] Performed By: #### L [id number] #### [facility] CLIA [id number] [address] [place] [address] [place] Platelets (Bld) [#/Vol] 187 10*3/uL Normal 150-400 [facility] Comment on above: Order Comment: Speci men Type: URINE SPECIMEN Ordering Facility: [facility] Address: [address] [place] [address] Performed By: #### L [id number] #### [facility] CLIA [id number] [address] [place] [address] [place] RBC (Bld) [#/Vol] 4.64 10*6/uL Normal 4.20-6.00 [facility] Comment on above: Order Comment: Speci men Type: URINE SPECIMEN Ordering Facility: [facility] Address: [address] [place], [place] [address] Performed By: #### L [id number] #### [facility] CLIA [id number] [address] [place] [address] [place] WBC (Bld) [#/Vol] 5.29 10*3/uL Normal 3.70-11.00 [facility] Comment on above: Order Comment: Speci men Type: URINE SPECIMEN Ordering Facility: [facility] Address: [address] [place], [place] [address] Performed By: #### L [id number] #### [facility] CLIA [id number] [facility] [place] [id number] [place] [facility] Comprehensive metabolic 2000 panelon 07-29-2021 Albumin [Mass/Vol] 4.6 g/dL Normal 3.9-4.9 [facility] Comment on above: Order Comment: Speci men Type: BLOOD SPECIMENOrdering Facility: [facility] Address: [address] [place] [address] Performed By: #### L KIERRAB, 04218-2 ####[facility] LABCLIA [id number] [place] [id number] [place] ALP [Catalytic activity/Vol] 80 U/L Normal 38-113 [facility] Comment on above: Order Comment: Speci men Type: BLOOD SPECIMENOrdering Facility: [facility] Address: [address] [place] [address] Performed By: #### L KIERRAB, 53077-8 ####[facility] LABCLIA [id number] [address] [place] ALT [Catalytic activity/Vol] 58 U/L High 10-54 [facility] Comment on above: Order Comment: Speci men Type: BLOOD SPECIMENOrdering Facility: [facility] Address: [address] [place] [address] Performed By: #### L KIERRAB, 00367-2 ####[facility] LABCLIA [id number] [place] [id number] [place] Anion gap [Moles/Vol] 7 mmol/L Low 9-18 [facility] Comment on above: Order Comment: Speci men Type: BLOOD SPECIMENOrdering Facility: [facility] Address: [address] [place] [address] Performed By: #### L IPB, 74952-7 ####[facility] LABCLIA [id number] [place] [address] [place] AST [Catalytic activity/Vol] 39 U/L Normal 14-40 [facility] Comment on above: Order Comment: Speci men Type: BLOOD SPECIMENOrdering Facility: [facility] Address: [address] [place], [place] [address] Performed By: #### L KIERRAB, 49234-0 ####[facility] LABCLIA [id number] [place] [address] [place] Bilirubin [Mass/Vol] 0.4 mg/dL Normal 0.2-1.3 [facility] Comment on above: Order Comment: Speci men Type: BLOOD SPECIMENOrdering Facility: [facility] Address: [address] [place], [place] [address] Performed By: #### L KIERRAB, 66281-2 ####[facility] LABCLIA [id number] [place] [address] [place] Calcium [Mass/Vol] 9.8 mg/dL Normal 8.5-10.2 [facility] Comment on above: Order Comment: Speci men Type: BLOOD SPECIMENOrdering Facility: [facility] Address: [address] [place], [place] [address] Performed By: #### L FILIPE, 48564-2 ####[facility] LABCLIA [id number] [place] [address] [place] Chloride [Moles/Vol] 104 mmol/L Normal 97-105 [facility] Comment on above: Order Comment: Speci men Type: BLOOD SPECIMENOrdering Facility: [facility] Address: [address] [place], [place] [address] Performed By: #### L IPB, 26540-0 ####[facility] LABCLIA [id number] [place] [id number] [place] CO2 [Moles/Vol] 28 mmol/L Normal 22-30 [facility] Comment on above: Order Comment: Speci men Type: BLOOD SPECIMENOrdering Facility: [facility] Address: [address] [place], [place] [address] Performed By: #### L IPB, 72392-2 ####[facility] LABCLIA [id number] [place] [address] [place] [facility] Creatinine [Mass/Vol] 0.98 mg/dL Normal 0.73-1.22 [facility] Comment on above: Order Comment: Tessa flores Type: BLOOD SPECIMENOrdering Facility: [facility] Address: [address] [place] [address] Performed By: #### L IPB, 34720-7 ####[facility] LABIA [id number] [place] [id number] [facility] ESTIMATED GLOMERULAR FILTRATION RATE 95 mL/min/1.73m??? Normal >=60 [facility] Comment on above: Order Comment: Tessa flores Type: BLOOD SPECIMENOrdering Facility: [facility] Address: [address] [place] [address] Result Comment: Halle mated Glomerular Filtration Rate [...] actual GFR. Performed By: #### L IPB, 39396-9 ####[facility] LABIA [id number] [place] [id number] [place] Glucose [Mass/Vol] 120 mg/dL High 74-99 [facility] Comment on above: Order Comment: Tessa flores Type: BLOOD SPECIMENOrdering Facility: [facility] Address: [address] [place] [address] Result Comment: The [place] [employer] (ADA) provides guidance for cutoff [...] Standards of Medical Care in Diabetes 2016, [place] [employer]. Diabetes Care. 2016.39(Suppl 1). Performed By: #### L KIERRAB, 01249-3 ####[facility] LABCLIA [id number] [place] [id number] [place] Potassium [Moles/Vol] 4.7 mmol/L Normal 3.7-5.1 [facility] Comment on above: Order Comment: Speci men Type: BLOOD SPECIMENOrdering Facility: [facility] Address: [address] [place] [address] Performed By: #### L KIERRAB, 21414-0 ####[facility] LABIA [id number] [place] [id number] [place] Protein [Mass/Vol] 7.6 g/dL Normal 6.3-8.0 [facility] Comment on above: Order Comment: Speci men Type: BLOOD SPECIMENOrdering Facility: [facility] Address: [address] [place] [address] Performed By: #### L FILIPE, 03852-9 ####[facility] LABCLIA [id number] [place] [id number] [place] Sodium [Moles/Vol] 139 mmol/L Normal 136-144 [facility] Comment on above: Order Comment: Speci men Type: BLOOD SPECIMENOrdering Facility: [facility] Address: [address] [place] [address] Performed By: #### L FILIPE, 98363-2 ####[facility] LABIA [id number] [place] [id number] [place] Urea nitrogen [Mass/Vol] 18 mg/dL Normal 9-24 [facility] Comment on above: Order Comment: Speci men Type: BLOOD SPECIMENOrdering Facility: [facility] Address: [address] [place] [address] Performed By: #### L FILIPE, 44634-1 ####CRIST[facility]AL [facility] LABCLIA [id number] [place] [id number] [facility] HGB A1Con 07-29-2021 Average glucose Estimated from glycated hemoglobin (Bld) [Mass/Vol] 117 mg/dL Normal [facility] Comment on above: Order Comment: Tessa men Type: BLOOD SPECIMENOrdering Facility: [facility] Address: [address] [place] [address] Result Comment: eAG: (Estimated average glucose) is a calculated value from HgbA1c and is provider service representative of the average blood glucose level in the last 2-3 month period. Performed By: #### H DEVORA1C ####CRISTOBAL [facility] LABIA [id number] [address] STATES [facility] HbA1c (Bld) [Mass fraction] 5.7 % High 4.3-5.6 [facility] Comment on above: Order Comment: Tessa flores Type: BLOOD SPECIMENOrdering Facility: [facility] Address: [address] [place] [address] Result Comment: Amer ican Diabetes Association guidelines indicate that patients with HgbA1c in the range 5.7-6.4% are at increased risk for development of diabetes, and intervention by lifestyle modification may be beneficial. HgbA1c greater or equal to 6.5% is considered diagnostic of diabetes. Performed By: #### H BA1C ####[facility] LABIA [id number] [place] [id number] [facility] [place] LIPID PANEL BASICon 07-30-19 22 Cholesterol [Mass/Vol] 240 mg/dL High <200 [facility] Comment on above: Order Comment: Tessa flores Type: BLOOD SPECIMENOrdering Facility: [facility] Address: [address] [place] [address] Result Comment: <200 mg/dL, Desirable 200-239 mg/dL, Borderline high >239 mg/dL, High Performed By: #### L KIERRAB, 73908-7 ####[facility] LABCLIA [id number] [place] [address] [facility] Cholesterol in HDL [Mass/Vol] 37 mg/dL Low >39 [facility] Comment on above: Order Comment: Tessa flores Type: BLOOD SPECIMENOrdering Facility: [facility] Address: [address] [place] [address] Result Comment: 40-5 9 mg/dL, Acceptable >59 mg/dL, High: Negative risk factor for coronary heart disease <40 mg/dL, Low: Positive risk factor for coronary heart disease Performed By: #### L KIERRAB, 13694-5 ####AMHORALIA [facility] LABCLIA [id number] [place] [id number] [facility] Cholesterol in LDL [Mass/Vol] 175 mg/dL High <100 [facility] Comment on above: Order Comment: Tessa flores Type: BLOOD SPECIMENOrdering Facility: [facility] Address: [address] [place] [address] Result Comment: <100 mg/dL, Optimal 100-129 mg/dL, Near optimal/above optimal 130-159 mg/dL, Borderline high 160-189 mg/dL, High >189 mg/dL, Very high Secondary prevention optimal LDL Cholesterol levels are recommended to be < 70 mg/dL Performed By: #### L IPB, 29535-8 ####AMHERSChristian [facility] LABCLIA [id number] [place] [id number] [facility] Cholesterol in LDL/Cholesterol in HDL [Mass ratio] 4.73 {ratio} High <2.54 [facility] Comment on above: Order Comment: Tessa sandra Type: BLOOD SPECIMENOrdering Facility: [facility] Address: [address] [place] [address] Result Comment: Doris tucker: 1. National Cholesterol Education Program ATP III Guideline At-A-Glance Quick Desk Reference: National Heart, Lung, and Blood [place]. National Institutes of Health. 2001: NIH Publication No. 01-3305. 2. An International Atherosclerosis Society position paper: global recommendations for the management of dyslipidemia: executive summary, Atherosclerosis. 2014: 232(2):410-413. Performed By: #### Natalie DENT, 12468-7 ####[facility] LABCLIA [id number] [place] [address] [place] Cholesterol in VLDL [Mass/Vol] 28 mg/dL Normal <30 [facility] Comment on above: Order Comment: Speci men Type: BLOOD SPECIMENOrdering Facility: [facility] Address: [address] [place] [address] Performed By: #### Natalie DENT, 75945-8 ####[facility] LABIA [id number] [place] [id number] [place] Cholesterol non HDL [Mass/Vol] 203 mg/dL High <130 [facility] Comment on above: Order Comment: Speci men Type: BLOOD SPECIMENOrdering Facility: [facility] Address: [address] [place] [address] Result Comment: <130 mg/dL, Optimal 130-159 mg/dL, Near optimal/above optimal 160-189 mg/dL, Borderline high 190-219 mg/dL, High >219 mg/dL, Very high Secondary prevention optimal non HDL Cholesterol levels are recommended to be <100 mg/dL Performed By: #### L FILIPE, 00707-9 ####[facility] LABIA [id number] [place] [address] [place] Cholesterol.total/Ch olesterol in HDL [Mass ratio] 6.49 {ratio} High <5.10 [facility] Comment on above: Order Comment: Speci men Type: BLOOD SPECIMENOrdering Facility: [facility] Address: [address] [place] [address] Performed By: #### L FILIPE, 94937-2 ####[facility]ENTER[facility]ALIA [facility] LABIA [id number] [place] [id number] [facility] FASTING TIME 12. hrs Normal [facility] Comment on above: Order Comment: Speci men Type: BLOOD SPECIMENOrdering Facility: [facility] Address: [address] [place] [address] Performed By: #### L IPB, 16380-8 ####AMHKHRIST [facility] LABCLIA [id number] [place] [address] [place] [facility] Triglyceride [Mass/Vol] 140 mg/dL Normal <150 [facility] Comment on above: Order Comment: Speci men Type: BLOOD SPECIMENOrdering Facility: [facility] Address: [address] [place], [place] [address] Result Comment: <150 mg/dL, Normal 150-199 mg/dL, Borderline high 200-499 mg/dL, High >499 mg/dL, Very high Performed By: #### L IPB, 00816-5 ####[facility] LABCLIA [id number] [place] [address] [place] PSA/PROSTSPECAG SCRNon 07-29 Prostate specific Ag [Mass/Vol] 0.41 ng/mL Normal <2.60 [facility] Comment on above: Order Comment: Speci men Type: BLOOD SPECIMENOrdering Facility: [facility] Address: [address] [place] [address] Result Comment: Tota l PSA test methodology used is the Electrochemiluminescence Immunoassay by [employer]. Total PSA values by differing methodologies cannot be interchanged. Performed By: #### P SAS1 ####[facility] LABCLIA [id number] [place] [address] [place] TSH SerPl-aCncon 07-29-2021 TSH Qn 4.060 m[IU]/L Normal 0.270-4.20 0 [facility] Comment on above: Order Comment: Speci men Type: BLOOD SPECIMENOrdering Facility: [facility] Address: [address] [place], [place] [address] Performed By: #### 3 016-3 ####[facility] LABCLIA [id number] [place] [address] [place] URINALYSIS, REFLEX MICROSCOP ICon 07-29-2021 Bilirubin Ql (U) Negative Normal Negative [facility] Comment on above: Order Comment: Speci men Type: URINE SPECIMEN [facility] Address: [address] [place] [address] Performed By: #### L [id number] #### [facility] LAB CLIA [id number] [address] [place] [address] [place] Clarity (Unsp spec) Clear Normal Clear [facility] Comment on above: Order Comment: Speci men Type: URINE SPECIMEN [facility] Address: [address] [place] [address] Performed By: #### L [id number] #### [facility] LAB CLIA [id number] [address] [place] [address] [place] Color (U) Yellow Normal Yellow [facility] Comment on above: Order Comment: Speci men Type: URINE SPECIMEN [facility] Address: [address] [place] [address] Performed By: #### L [id number] #### [facility] LAB CLIA [id number] [address] [place] [address] [place] Glucose Test strip (U) [Mass/Vol] Negative Normal Negative [facility] Comment on above: Order Comment: Speci men Type: URINE SPECIMEN [facility] Address: [address] [place] [address] Performed By: #### L [id number] #### [facility] LAB CLIA [id number] [address] [place] [address] [place] Hemoglobin Ql (U) Negative Normal Negative [facility] Comment on above: Order Comment: Speci men Type: URINE SPECIMEN [facility] Address: [address] [place] [address] Performed By: #### L [id number] #### [facility] LAB CLIA [id number] [address] [place] [address] [place] Ketones Ql (U) Negative Normal Negative [facility] Comment on above: Order Comment: Speci men Type: URINE SPECIMEN [facility] Address: [address] [place] [address] Performed By: #### L [id number] #### [facility] LAB CLIA [id number] [address] [place] [address] [place] [facility] Leukocyte esterase Test strip Ql (U) Negative Normal Negative [facility] Comment on above: Order Comment: Speci men Type: URINE SPECIMEN [facility] Address: [address] [place] [address] Performed By: #### L [id number] #### [facility] LAB CLIA [id number] [address] [place] [address] [place] Nitrite Ql (U) Negative Normal Negative [facility] Comment on above: Order Comment: Speci men Type: URINE SPECIMEN [facility] Address: [address] [place] [address] Performed By: #### L [id number] #### [facility] LAB CLIA [id number] [address] [place] [address] [place] pH (U) 5.5 [pH] Normal 5.0-8.0 [facility] Comment on above: Order Comment: Speci men Type: URINE SPECIMEN [facility] Address: [address] [place] [address] Performed By: #### L [id number] #### [facility] LAB CLIA [id number] [address] [place] [place] [address] [place] Protein (U) [Mass/Vol] Negative Normal Negative [facility] Comment on above: Order Comment: Speci men Type: URINE SPECIMEN [facility] Address: [address] [place] [address] Performed By: #### L [id number] #### [facility] LAB CLIA [id number] [address] [place] [address] [place] Specific gravity (U) [Rel density] 1.025 Normal 1.005-1.03 0 [facility] Comment on above: Order Comment: Speci men Type: URINE SPECIMEN [facility] Address: [address] [place] [address] Performed By: #### L [id number] #### AMHERST [facility] LAB CLIA [id number] [address] [place] [address] Urobilinogen Ql (U) 0.2 EU/dL Normal 0.2-1.0 EU/dL [facility] Comment on above: Order Comment: Speci men Type: URINE SPECIMEN [facility] Address: [address] [place] [address] Performed By: #### L [id number] #### AMHERST [facility] LAB CLIA [id number] [address] [place] [address] OF [facility] VITAMIN D 25 HYDROXYon 07-29 25-hydroxyvitamin D3 [Mass/Vol] 29.1 ng/mL Low 31.0-80.0 [facility] Comment on above: Order Comment: Speci men Type: BLOOD SPECIMENOrdering Facility: [facility] Address: [address] [place] [address] Result Comment: Clas sification of 25 [place] Vitamin D status: Deficiency/Insufficiency: < or = 30 ng/ml. Sufficiency/Optimal Levels: 31-80 ng/mL Toxicity: > 100 ng/mL. Test performed by chemiluminescent immunoassay. Performed By: #### V ITD ####[facility] LABCLIA [id number] [address] [place] HISTORY PHYSICALon HISTORY PHYSICAL HNO ID: [id number] Author: Prisca Van PA-C Service: ? Author Type: Physician Panel Raiser Operator Type: HANDP Filed: 07/26/2021 1:52 PM Note Text: [facility]HES[facility] CON[facility]ULT [facility] This is a virtual visit. It required patient-provider interaction for the medical decision making as documented below. Patient has been identified by name and date of : Yes Reason for call: PACC visit Accompanied by: Self Patient name: Nehal Baig Scheduled Surgery: colonoscopy 07/31/2021 at [facility] CHIEF COMPLAINT: Patient presents with: Outpatient Colonoscopy [...] fevers. Neuro: No history of TIA's, stroke, CVOR NURSE tumor, impaired sensorium, hemiplegia, paraplegia or quadraplegia. No neurological symptoms or problems. Respiratory: No history of current cough or dyspnea, or pneumonia in the past 6 weeks. +asthma-uses Flovent daily, albuterol 3-5 times/week +JACOBY- BiPAP nightly +lung nodules Cardiovascular: No history of angina, CHF, MO, cardiac surgery or stents. Denies rest pain, [...] carotid puls (more content not included)... Normal [facility] CNOVon 07-25-2021 CNOV Office Visit ([facility] ) -- NEHAL BAIG ([id number]) 1970 M Date Time Provider Department 07/25/21 9:20 AM SALOME AGUILLONALMICHAELA During your visit today, we recorded the following information about you: Pulse Blood pressure Weight Height 88/minute 136/78 182.3 kg 1.854 m Salome Aguillon APRN.SENIOR CLINICAL DATA COORDINATOR 07/25/2021 5:32 PM Signed This note was created using [employer]. Subjective Nehal Baig is a 50 year [...] further at follow-up Salome Aguillon APRN.LEODAN Aguillon APRN.SENIOR CLINICAL DATA COORDINATOR 07/25/2021 9:43 AM Signed Bowel Preparation Instructions for: Golytely, Nulytely, Trilyte or Coly (more content not included)... [facility] -- NEHAL BAIG ([id number]) 1970 M Date Time Provider Department 07/25/21 SALOME AGUILLON [facility] During your visit today, we recorded the following information about you: Beatriz Cowan 07/25/2021 11:22 AM Signed [facility] states the Golytely is on backorder. They have the Newlytely in stock. Is it OK to substitute? Please advise. [phone]. Beatriz Cowan July 25, 2021 11:22 AM Salome Aguillon APRN.SENIOR CLINICAL DATA COORDINATOR 07/25/2021 12:05 PM Signed Kj Cruz -pt [...] Date Reviewed: 07/25/2021 Reviewed by: Salome Aguillon APRN.SENIOR CLINICAL DATA COORDINATOR - Fully Assessed Reason for Visit: Medication [...] Status:Closed by SALOME AGUILLON on 07/25/21 Normal [facility] CT CHEST WO IVCONon 15-20 21 Radiology Result ACTIONABLE Abnormal [facility] Basic Metab w/rfx MGon 08-02 (cont.) Normal [facility] Comment on above: Result Comment: Aver age GFR for 40-49 years old: 99 mL/min/1.73sq m Chronic Kidney Disease: <60 mL/min/1.73sq m Kidney failure: <15 mL/min/1.73sq m eGFR calculated using average adult body mass. Additional eGFR calculator available at: http://www.[employer]/multiple_crcl_2012.htm Performed By: #### C AXEL, BMPX ####[facility] [address] [place] [address] Lab Director: Nate Stafford MD Anion gap [Moles/Vol] 11 mmol/L Normal 9-17 [facility] Comment on above: Performed By: #### C BC, BMPX ####[facility] [address] [place], [place] [phone] Director: Nate Stafford MD Calcium [Mass/Vol] 8.5 mg/dL Low 8.6-10.4 [facility] Comment on above: Performed By: #### C BC, BMPX ####[facility] [address] [place], [place] [phone] Director: Nate Stafford MD Chloride [Moles/Vol] 101 mmol/L Normal 98-107 [facility] Comment on above: Performed By: #### C BC, BMPX ####[facility] [address] [place], [place] [phone] Director: Nate Stafford MD CO2 [Moles/Vol] 23 mmol/L Normal 20-31 [facility] Comment on above: Performed By: #### C BC, BMPX ####[facility] [address] [place] [address] Lab Director: Nate Stafford MD Creatinine [Mass/Vol] 0.62 mg/dL Low 0.70-1.20 [facility] Comment on above: Performed By: #### C BC, BMPX ####[facility] [address] [place] [address] Lab Director: Nate Stafford MD GFR, Amer >60 Normal >[address] [facility] Comment on above: Performed By: #### C BC, BMPX ####[facility] [address] [place], [place] [phone] Director: Nate Stafford MD GFR,non Amer >60 Normal >60 [facility] Comment on above: Performed By: #### C BC, BMPX ####[facility] [address] [place], [place] [phone] Director: Nate Stafford MD Glucose [Mass/Vol] 120 mg/dL High 70-99 [facility] Comment on above: Performed By: #### C BC, BMPX ####[facility] [address] [place], [place] [phone] Director: Nate Stafford MD Potassium [Moles/Vol] 4.3 mmol/L Normal 3.7-5.3 [facility] Comment on above: Performed By: #### C BC, BMPX ####[facility] [address] [place], [place] [phone] Director: Nate Stafford MD Sodium [Moles/Vol] 135 mmol/L Normal 135-144 [facility] Comment on above: Performed By: #### C BC, BMPX ####[facility] [address] [place], [place] [id number] Lab Director: Nate Stafford MD Urea nitrogen [Mass/Vol] 14 mg/dL Normal 6-20 [facility] Comment on above: Performed By: #### C BC, BMPX ####[facility] [address] [place] [address] Lab Director: Nate Stafford MD BUN/CRE Ratio NOT REPORTED Normal -20 [facility] Comment on above: Performed By: #### C BC, BMPX ####[facility] [address] [place] [address] Lab Director: Nate Stafford MD Staging: NOT REPORTED Normal [facility] Comment on above: Performed By: #### C BC, BMPX ####[facility] [address] [place], [place] [id number] lab Director: Nate Stafford MD Basic Metabolic Panel w/ Ref johnny to MGOrdered By: Halina Pathak on 08-02-2020 Anion gap [Moles/Vol] 11 mmol/L 9 - 17 mmol/L [employer] Phone: Calcium [Mass/Vol] 8.5 mg/dL Low 8.6 - 10. 4 mg/dL [employer] Phone: Chloride [Moles/Vol] 101 mmol/L 98 - 10 7 mmol/L [employer] Phone: CO2 [Moles/Vol] 23 mmol/L 20 - 31 mmol/L [employer] Phone: Creatinine [Mass/Vol] 0.62 mg/dL Low 0.70 - 1.20 mg/dL [employer] Phone: GFR >60 >60 mL/min [employer] Phone: GFR Non- >60 >60 mL/min [employer] Phone: GFR/1.73 sq M.predicted MDRD (S/P/Bld) [Vol rate/Area] [employer] Phone: Comment on above: Average GFR for 40-4 9 years old: 99 mL/min/1.73sq m Chronic Kidney Disease: <60 mL/min/1.73sq m Kidney failure: <15 mL/min/1.73sq m eGFR calculated using average adult body mass. Additional eGFR calculator available at: http://www.Goojet/multiple_crcl_2012.htm GFR/1.73 sq M.predicted MDRD (S/P/Bld) [Vol rate/Area] NOT REPORTED [employer] Phone: Glucose [Mass/Vol] 120 mg/dL High 70 - 99 mg/dL [employer] Phone: Interpretation and review of laboratory results Abnormal [employer] Phone: Potassium [Moles/Vol] 4.3 mmol/L 3.7 - 5.3 mmol/L [employer] Phone: Sodium [Moles/Vol] 135 mmol/L 135 - 144 mmol/L [employer] Phone: Urea nitrogen (BldV) [Mass/Vol] 14 mg/dL 6 - 20 mg/dL [employer] Phone: Urea nitrogen/Creatinine (Bld) [Mass ratio] NOT REPORTED [employer] Phone: CBCon 08-02-2020 Erythrocyte distribution width (RBC) [Ratio] 13.0 % Normal 11.8-14.4 [facility] Comment on above: Performed By: #### C BC BMPX ####[employer] [address] [place], [place] [id number] lab Director: Nate Stafford MD Hematocrit (Bld) [Volume fraction] 41.8 % Normal 40.7-50.3 [facility] Comment on above: Performed By: #### C AXEL BMPX ####[employer] [address] [place] [address] Lab Director: Nate Stafford MD Hemoglobin (Bld) [Mass/Vol] 13.8 g/dL Normal 13.0-17.0 [facility] Comment on above: Performed By: #### C BC, BMPX ####[facility] [address] [place], [place] [phone] Director: Nate Stafford MD MCH (RBC) [Entitic mass] 29.3 pg Normal 25.2-33.5 [facility] Comment on above: Performed By: #### C BC, BMPX ####[facility] [address] [place] [address] Lab Director: Nate Stafford MD MCHC (RBC) [Mass/Vol] 33.0 g/dL Normal 28.4-34.8 [facility] Comment on above: Performed By: #### C BC, BMPX ####[facility] [address] [place] [address] [phone] Director: Nate Stafford MD MCV (RBC) [Entitic vol] 88.7 fL Normal 82.6-102.9 [facility] Comment on above: Performed By: #### C BC, BMPX ####[facility] [address] [place] [address] Lab Director: Nate Stafford MD NRBC Automated 0.0 per 100 WBC Normal 0.0 [facility] Comment on above: Performed By: #### C BC, BMPX ####[facility] [address] [place], [place] [phone] Director: Nate Stafford MD Platelet mean volume (Bld) [Entitic vol] 10.9 fL Normal 8.1-13.5 [facility] Comment on above: Performed By: #### C BC, BMPX ####[facility] [address] [place] [address] Lab Director: Nate Stafford MD Platelets (Bld) [#/Vol] 221 10*3/uL Normal 138-453 [facility] Comment on above: Performed By: #### C BC, BMPX ####[facility] [address]fm[address] [place] [address] lab Director: Nate Stafford MD RBC (Bld) [#/Vol] 4.71 10*6/uL Normal 4.21-5.77 [facility] Comment on above: Performed By: #### C BC, BMPX ####[facility] [address] [place] [address] lab Director: Nate Stafford MD WBC (Bld) [#/Vol] 10.6 10*3/uL Normal 3.5-11.3 [facility] Comment on above: Performed By: #### C BC, BMPX ####[facility] [address] [place] [address] Lab Director: Nate Stafford MD CBCOrdered By: Halina Pathak on 08-02-2020 Hematocrit (Bld) [Volume fraction] 41.8 % 40.7 - 50.3 % [employer] Phone: Hemoglobin.gastroint estinal spec 1 Ql (Stl) 13.8 g/dL 13.0 - 17.0 g/dL [employer] Phone: MCH (RBC) [Entitic mass] 29.3 pg 25.2 - 33.5 pg [employer] Phone: MCHC (RBC) [Mass/Vol] 33.0 g/dL 28.4 - 34.8 g/dL [employer] Phone: MCV (RBC) [Entitic vol] 88.7 fL 82.6 - 102.9 fL [employer] Phone: NRBC Automated 0.0 0.0 per 100 WBC [employer] Phone: Platelet distribution width (Bld) [Ratio] 13.0 % 11.8 - 14.4 % [employer] Phone: Platelet mean volume (Bld) [Entitic vol] 10.9 fL 8.1 - 13.5 fL [employer] Phone: Platelets (Bld) [#/Vol] 221 10*3/uL [employer] Phone: RBC (Bld) [#/Vol] 4.71 10*6/uL 4.21 - 5.77 m/uL [employer] Phone: WBC (Bld) [#/Vol] 10.6 10*3/uL [employer] Phone: Trauma Profileon 08-02-2020 (cont.) Normal [facility] Comment on above: Result Comment: Aver age GFR for 40-49 years old: 99 mL/min/1.73sq m Chronic Kidney Disease: <60 mL/min/1.73sq m Kidney failure: <15 mL/min/1.73sq m eGFR calculated using average adult body mass. Additional eGFR calculator available at: http://www.Goojet/multiple_crcl_2012.htm Performed By: #### E RTPF, TROPI ####[facility] [address] [place] [address] Lab Director: Nate Stafford MD Anion gap [Moles/Vol] 10 mmol/L Normal 9-17 [facility] Comment on above: Performed By: #### E RTPF, TROPI ####[facility] [address] [place] [address] Lab Director: Nate Stafford MD Chloride [Moles/Vol] 100 mmol/L Normal 98-107 [facility] Comment on above: Performed By: #### E RTPF, TROPI ####[facility] [address] [place] [address] Lab Director: Nate Stafford MD CO2 [Moles/Vol] 24 mmol/L Normal 20-31 [facility] Comment on above: Performed By: #### E RTPF, TROPI ####[facility] [address] [place] [address] Lab Director: Nate Stafford MD Creatinine [Mass/Vol] 0.71 mg/dL Normal 0.70-1.20 [facility] Comment on above: Performed By: #### E RTPF, TROPI ####[facility] [address] [place], [place] [phone] Director: Nate Stafford MD Ethanol [Mass/Vol] mg/dL Normal <10 [facility] Comment on above: Performed By: #### E RTPF, TROPI ####[facility] [address] [place] [address])[phone] Director: Nate Stafford MD Ethanol percent <0.010 Normal <0.010 [facility] Comment on above: Performed By: #### E RTPF, TROPI ####[facility] [address] [place], [place] [phone] Director: Nate Stafford MD GFR, Amer >60 Normal >[address] [facility] Comment on above: Performed By: #### E RTPF, TROPI ####[facility] [address]orm[address] [place], [place] [phone])[phone] Director: Nate Stafford MD GFR,non Amer >60 Normal >60 [facility] Comment on above: Performed By: #### E RTPF, TROPI ####[facility] [address] [place], [place] [phone] Director: Nate Stafford MD Glucose [Mass/Vol] 109 mg/dL High 70-99 [facility] Comment on above: Performed By: #### E RTPF, TROPI ####[facility] [address] [place], [place] [id number])[phone] Director: Nate Stafford MD Potassium [Moles/Vol] 4.2 mmol/L Normal 3.7-5.3 [facility] Comment on above: Performed By: #### E RTPF, TROPI ####[facility] [address] [place], [place] [phone])[phone] Director: Nate Stafford MD Sodium [Moles/Vol] 134 mmol/L Low 135-144 [facility] Comment on above: Performed By: #### E RTPAlanna TROPI ####[facility] [address] [place] [address] Lab Director: Nate Stafford MD Urea nitrogen [Mass/Vol] 15 mg/dL Normal 6-20 [facility] Comment on above: Performed By: #### E RTPF TROPI ####[facility] [address] [place], [place] [id number])[phone] Director: Nate Stafford MD Troponinon 08-02-2020 Troponin, High Sens 6 ng/L Normal 0-22 [facility] Comment on above: Result Comment: High Sensitivity Troponin values cannot be compared with other Troponin methodologies. Patients with high levels of Biotin oral intake (i.e >5mg/day) may have falsely decreased Troponin levels. Samples collected within 8 hours of biotin intake may require additional information for diagnosis. Performed By: #### E RTPF, TROPI ####[facility] [address] [place], [place] [id number])[phone] Director: Nate Stafford MD Type + Screenon 08-02-2020 Type + Screen Sample Expiration 08/04/2020,2359 Arm Band Number [id number] ABO/Rh(D) A NEGATIVE Antibody Screen NEGATIVE Normal [facility] Comment on above: Performed By: #### T YS ####[facility] [address] [place] [address] lab Director: Nate Stafford MD CT CERVICAL [...] Johnny Smalls MD 08/01/20 Final result Normal [facility] CT CERVICAL SPINE WO CONTRAS TOrdered By: Ronnie Lund on 08-01-2020 C6-7 cervical spondy losis and degenerative disc disease. Evidence of paracervical spasm. No acute bony abnormalities are noted [employer] Work Phone: EXAMINATION: CT OF T HE [...] intact. The visualized lung apices are clear. [employer] Work Phone: [place], pn Incoming R adiant Results From [employer] - 08/01/2020 7:04 PM EDT EXAMINATION: CT [...] spasm. No acute bony abnormalities are noted [employer] Phone: CT CHEST ABDOMEN PELVIS W CO [...] Elizabeth Shoemaker MD 08/01/20 Final result Normal [facility] CT CHEST ABDOMEN PELVIS W [...] to Lung-RADS guidelines. Reference: Radiology. 2017; 284(1):228-43. [employer] Phone: EXAMINATION: CT OF T HE CHEST, [...] hernia. Bones/Soft Tissues: No acute osseous abnormality. [employer] Work Phone: [place], Mhpn Incoming R adiant Results From [employer] - 08/01/2020 7:19 PM EDT EXAMINATION: CT [...] to Lung-RADS guidelines. Reference: Radiology. 2017; 284(1):228-43. [employer] Phone: CT HEAD WO CONTRASTon 2020 CT [...] Jarek Fernández MD 08/01/20 Final result Normal [facility] CT Head WO ContrastOrdered B y: Ronnie Lund on 08-01-2020 1. No acute intracra nial abnormality. [employer] Phone: EXAMINATION: CT OF T HE HEAD [...] clear. SOFT TISSUES/SKULL: The calvarium is intact. [employer] Phone: [place], Mhpn Incoming R adiant Results From [employer] - 08/01/2020 7:01 PM EDT EXAMINATION: CT [...] intact. IMPRESSION: 1. No acute intracranial abnormality. [employer] Phone: CT LUMBAR SPINE TRAUMA RECON STRUCTIONon [...] Johnny Smalls MD 08/01/20 Final result Normal [facility] CT THORACIC SPINE TRAUMA REC [...] Johnny Smalls MD 08/01/20 Final result Normal [facility] Drug Scr, Abuse, Uron 2020 Amphetamine(s),Ur Negative Normal NEG [facility] Comment on above: Result Comment: (Positive cutoff 1000 ng/mL) Performed By: #### U AMIC, LOUIS #### [facility] [employer] [address] [place] [address] Videotape Recording Engineer: Nate Stafford MD Barbiturate(s),Ur Negative Normal NEG [facility] Comment on above: Result Comment: (Positive cutoff 200 ng/mL) Performed By: #### U AMIC, LOUIS #### [facility] [employer] [address] [place] [address] [employer]ideotape Recording Engineer: Nate Stafford MD Benzodiazepine(s) Negative Normal NEG [facility] Comment on above: Result Comment: (Positive cutoff 200 ng/mL) Performed By: #### U AMIC, LOUIS #### [facility] [address] [place] [address] Videotape Recording Engineer: Nate Stafford MD Cannabinoid(s),Ur Negative Normal NEG [facility] Comment on above: Result Comment: (Positive cutoff 50 ng/mL) Performed By: #### U AMIC, LOUIS #### [facility] [address] [place] [address] Videotape Recording Engineer: Nate Stafford MD Cocaine Metabolite Negative Normal NEG [facility] Comment on above: Result Comment: (Positive cutoff 300 ng/mL) Performed By: #### U AMIC, LOUIS #### [facility] [address] [address] Videotape Recording Engineer: Nate Stafford MD Interpretive Info Assay provides medic al screening only. The absence of expected drug(s) and/or Normal [facility] Comment on above: Result Comment: meta bolite(s) may indicate diluted or adulterated urine, limitations of testing or timing of collection. Testing for legal purposes should be confirmed by another method. To request confirmation of test result, please call the lab within 7 days of sample submission. Performed By: #### U AMIC, LOUIS #### [facility] [address] [place] [address] Videotape Recording Engineer: Nate Stafford MD Methadone Ql (U) Negative Normal NEG [facility] Comment on above: Result Comment: (Positive cutoff 300 ng/mL) Performed By: #### U AMIC, LOUIS #### [facility] [address] [place] [address] Videotape Recording Engineer: Nate Stafford MD Opiate(s), Ur Negative Normal NEG [facility] Comment on above: Result Comment: (Positive cutoff 300 ng/mL) Performed By: #### U AMIC, LOUIS #### [employer] [address] [place] [address] Videotape Recording Engineer: Nate Stafford MD Oxycodone, Urine Negative Normal NEG [facility] Comment on above: Result Comment: (Positive cutoff 100 ng/mL) Performed By: #### U AMIC, LOUIS #### [employer] [address] [place] [address] Videotape Recording Engineer: Nate Stafford MD Phencyclidine, Ur Negative Normal NEG [facility] Comment on above: Result Comment: (Positive cutoff 25 ng/mL) Performed By: #### U AMIC, LOUIS #### [employer] [address] [place] [address] Videotape Recording Engineer: Nate Stafford MD Buprenorphrine, Ur NOT REPORTED Normal NEG [facility] Comment on above: Performed By: #### U AMIC, LOUIS #### [facility] [address] [place] [address] Videotape Recording Engineer: Nate Stafford MD MDMA, Urine NOT REPORTED Normal NEG [facility] Comment on above: Performed By: #### U AMIC, LOUIS #### [facility] [address] [place] [address] Videotape Recording Engineer: Nate Stafford MD Methamphetamine, Ur NOT REPORTED Normal NEG [facility] Comment on above: Performed By: #### U AMIC, LOUIS #### [facility] [address] [place] [address] Videotape Recording Engineer: Nate Stafford MD Propoxyphene,Urine NOT REPORTED Normal NEG [facility] Comment on above: Performed By: #### U AMIC, LOUIS #### [facility] [address] [place] [address] Videotape Recording Engineer: Nate Stafford MD Tricyclic antidepressants Screen Ql (U) NOT REPORTED Normal NEG [facility] Comment on above: Performed By: #### U AMIC, LOUIS #### [facility] [address] [place] [address] Videotape Recording Engineer: Nate Stafford MD No Panel InformationOrdered By: [...] to body habitus but requires clinical correlation. [facility] Work Phone: EXAMINATION: TWO XRA Y VIEWS [...] may relate to swelling or body habitus. [employer] Phone: [place], Mhpn Incoming R adiant Results From [employer] - 08/01/2020 9:41 PM EDT EXAMINATION: TWO [...] to body habitus but requires clinical correlation. [employer] Phone: No Panel InformationOrdered By: Ronnie Lund on 08-01-2020 Degenerative disc di sease at L5-S1. No acute bony abnormalities are seen in the thoracic or lumbar spine [employer] Phone: EXAMINATION: CT OF T HE LUMBAR [...] SOFT TISSUES/RETROPERITONEUM: No paraspinal mass is seen. [employer] Phone: [place], Mhpn Incoming R adiant Results From [employer] - 08/01/2020 7:11 PM EDT EXAMINATION: CT [...] seen in the thoracic or lumbar spine [employer] Phone: TRAUMA PANELOrdered By: Carlos Pathak on 08-01-2020 Lawson Test Unable to perform te sting: No specimen received. [employer] Phone: Anion gap [Moles/Vol] 10 mmol/L 9 - 17 mmol/L [employer] Phone: aPTT Coag (Bld) [Time] 23.3 s [employer] Phone: Comment on above: IV Heparin Therapy Range: 48.6-77.8 Blood Bank Specimen BILL FOR SERVICES PERFORMED [employer] Phone: Carboxyhemoglobin Unable to perform te sting: No specimen received. % [employer] Phone: Chloride [Moles/Vol] 100 mmol/L 98 - 10 7 mmol/L [employer] Phone: CO2 [Moles/Vol] 24 mmol/L 20 - 31 mmol/L [employer] Phone: Creatinine [Mass/Vol] 0.71 mg/dL 0.70 - 1.20 mg/dL [employer] Phone: Ethanol [Mass/Vol] mg/dL <10 mg/dL [employer] Phone: Ethanol percent <0.010 <0.010 % [employer] Work Phone: FIO2 Unable to perform te sting: No specimen received. [employer] Phone: GFR >60 >60 mL/min [employer] Phone: GFR Non- >60 >60 mL/min [employer] Phone: GFR/1.73 sq M.predicted MDRD (S/P/Bld) [Vol rate/Area] [employer] Phone: Comment on above: Average GFR for 40-4 9 years old: 99 mL/min/1.73sq m Chronic Kidney Disease: <60 mL/min/1.73sq m Kidney failure: <15 mL/min/1.73sq m eGFR calculated using average adult body mass. Additional eGFR calculator available at: http://www.Goojet/multiple_crcl_2012.htm GFR/1.73 sq M.predicted MDRD (S/P/Bld) [Vol rate/Area] NOT REPORTED [employer] Phone: Glucose [Mass/Vol] 109 mg/dL High 70 - 99 mg/dL [employer] Phone: hCG Qual PATIENT IS MALE NEGATIVE [employer] Work Phone: HCO3, Venous Unable to perform te sting: No specimen received. 24.0 - 30.0 mmol/L [employer] Phone: Hematocrit (Bld) [Volume fraction] 42.3 % 40.7 - 50.3 % [employer] Phone: Hemoglobin.gastroint estinal spec 1 Ql (Stl) 14.2 g/dL 13.0 - 17.0 g/dL [employer] Phone: INR Coag (Bld) [Relative time] 1.0 {INR} [employer] Phone: Comment on above: Therapeutic Range: Moderate Anticoagulant Intensity: INR = 2.0-3.0 High Anticoagulant Intensity: INR = 2.5-3.5 Interpretation and review of laboratory results Abnormal [employer] Phone: MCH (RBC) [Entitic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 End Date , VP RESPIRATORY.SENIOR CLINICAL DATA COORDINATOR [address] [place] [address] PCP - General Family Medicine 11/23/19 Vice President Integrated Relationship Specialty Start Date End Date , VP RESPIRATORY.SENIOR CLINICAL DATA COORDINATOR [address] [place] [address] PCP - General Family Medicine 11/23/19 Vice President Integrated Relationship Specialty Start Date End Date [facility] Salome, VP RESPIRATORY.SENIOR CLINICAL DATA COORDINATOR [address] [place] [address] PCP - General Family Medicine 11/23/19 Vice President Integrated Relationship Specialty Start Date End Date , VP RESPIRATORY.SENIOR CLINICAL DATA COORDINATOR [address] [place] [address] PCP - General Family Medicine 11/23/19 Team Status: Active Member Role Status Dates Vonnie Guerrero CHIEF LIBRARIAN EXTENSION DEPARTMENT-C Primary Care Provider Active Team Status: Inactive Member Role Status Dates Vonnie Guerrero CHIEF LIBRARIAN EXTENSION DEPARTMENT-C Primary Care Provider Active Siri Quezada CHIEF LIBRARIAN EXTENSION DEPARTMENT-C Attending Provider Active Team Status: Inactive Member Role Status Dates Salome Aguillon CHIEF LIBRARIAN EXTENSION DEPARTMENT-C Primary Care Provider Marcosi tyler Yi NP-C Attending Provider Active Team Status: Inactive Member Role Status Dates Salome Aguillon CHIEF LIBRARIAN EXTENSION DEPARTMENT-C Primary Care Provider Acti tyler Quezada CHIEF LIBRARIAN EXTENSION DEPARTMENT-C Attending Provider Active Team Status: Inactive Member Role Status Dates Huan Cowan DO Attending Provider Active Team Status: Active Member Role Status Dates Vonnie Guerrero CHIEF LIBRARIAN EXTENSION DEPARTMENT-C Primary Care Provider Active HAIDER Beard Attending [...] BE BASED ON THE PRIMARY CLINICAL RECORDS. [facility] [employer], [facility]. provides no warranty or guarantee of the accuracy or completeness of information in this document.
--- NOTE | 2023-05-31 07:29 | CT_ITS ---
[address] [address] Patient Name: NEHAL BAIG MRN: [id number] date: 1970 Sex: M Assigned Patient Location: ER Current Patient Location: Accession/Order Number: [id number] Exam Date: 05/31/2023 08:00 Report Date: 05/31/2023 08:37 At the request of: JOSE BUTTS Procedure: CT lumbar spine wo con EXAMINATION: CT lumbar spine wo con HISTORY: pain COMPARISON: No relevant comparison available. TECHNIQUE: Axial, Coronal, and Sagittal CT images were created without I.V. contrast material. Dose reduction techniques were achieved by using automated exposure control and/or adjustment of mA and/or kV according to patient size and/or use of iterative reconstruction technique. FINDINGS: PARASPINAL AREA: Normal with no visible mass. BONES: Normal alignment with no acute fracture or spondylolisthesis. Minimal degenerative spondylosis. Mild facet osteoarthropathy DISC LEVELS: 12-L1: Early degenerative disc disease is present without focal protrusion or neural impingement. L1-L2: No significant disc/facet abnormality, spinal stenosis, or foraminal stenosis. L2-L3: No significant disc/facet abnormality, spinal stenosis, or foraminal stenosis. L3-L4: No significant disc/facet abnormality, spinal stenosis, or foraminal stenosis. L4-L5: No significant disc/facet abnormality, spinal stenosis, or foraminal stenosis. L5-S1: Severe disc space narrowing with endplate sclerosis. Moderate diffuse disc/osteophyte complex. Moderate right and mild left foraminal stenosis. No central canal stenosis CT/CT lumbar spine wo con IMPRESSION: Degenerative changes at L5-S1 with foraminal stenosis No acute abnormality Electronically authenticated by: KINGSLEY HERRERA Date: 05/31/2023 08:37
--- NOTE | 2023-05-31 07:33 | ED.GENADUL1 ---
HPI - General Adult General Chief complaint: Back Pain/Injury Stated complaint: Back Pain Time Seen by Provider: 05/31/23 07:29 Source: patient Mode of arrival: ambulance Limitations: no limitations History of Present Illness HPI narrative: Patient is a 52-year-old male who is presenting to the ER with chief complaint of acute on chronic lumbar pain. Patient came in by EMS. Patient was just seen and evaluated 2 days ago on Saturday as well for similar symptoms. Patient again was brought in by EMS at that time. Patient states he has been sitting on the couch since 10:30 PM. Patient is not losing urine or bowels in his pants. Patient has no signs of saddle anesthesia or cauda equina. Patient has no abdominal pain, nausea, vomiting. No chest pain or shortness of breath. Patient was given Dilaudid by EMS staff, patient is arriving slightly hypoxic, patient had oxygen applied when he arrived to room 1. Patient's fianc? left work to come be at bedside as well, she is a DEBURRER MACHINE at a nursing facility. Patient has no headache. No recent fall, no recent injury. Patient is getting another MRI scheduled as an outpatient, this was ordered yesterday. No other acute complaints. Patient does have a temperature of 100. All systems are negative except as noted/marked. All systems reviewed and otherwise negative. Nurses note and vital signs reviewed and patient is not hypoxic. General: The patient appears in moderate distress with severe pain with any type of range of motion of his lower extremities or lower back. Patient is resting uncomfortably on cart. Patient is not toxic, lethargic, or listless Skin: Warm, dry, no pallor noted. There is no rash noted. No petechiae, purpura. Head: Normocephalic, atraumatic Eye: Normal conjunctiva, no drainage, EOMI. PERRL Ears, Nose, Mouth, and Throat: oral mucosa is moist. Nares patent. Mouth without vesicles. Cardiovascular: Regular Rate and Rhythm, no murmur, gallop, rub Respiratory: Patient is in no distress, no accessory muscle use, lungs are clear to auscultation, no wheezing, rales or rhonchi Back: Difficult to assess patient's lower back, any range of motion of rotation or side bending or moving his legs is causing severe spasm and pain to his lumbar area. Patient states he has no abscesses around the rectum, no pilonidal cyst, no other skin lesions above his buttocks. Patient denies rash. Patient is thoracic and cervical spine are non-tender, no CVA tenderness bilaterally to percussion. No CTS midline pain. Patient is having midline and paralumbar severe tenderness to palpation for the past several days. GI: no tenderness to palpation, no masses appreciated. No rebound, guarding, or rigidity noted. No distention Musculoskeletal: Patient has full range of motion of upper extremities, any range of motion or movement of lower extremities will cause spasm and severe pain to lower back, patient does not want his legs moved. Patient does have normal plantarflexion and extension of his feet; no loss of sensation to his lower extremities, no saddle anesthesia. Neurological: A&O x4, normal speech Psychiatric: Cooperative Related Data Home Medications Medication Instructions Recorded Confirmed acetaminophen 500 mg capsule 1,000 mg PO .Q12 PRN pain 01/28/23 05/31/23 ibuprofen 200 mg tablet (I-Prin) 800 mg PO Q12H 01/28/23 05/31/23 lisinopril 10 mg tablet 10 mg PO DAILY 01/28/23 05/31/23 omeprazole 20 mg capsule,delayed 20 mg PO DAILY 01/28/23 05/31/23 release aspirin 81 mg tablet,delayed 81 mg PO DAILY 02/24/23 05/31/23 release (Adult Aspirin Regimen) cholecalciferol (vitamin D3) 25 2,000 unit PO DAILY 02/24/23 05/31/23 mcg (1,000 unit) chewable tablet ([employer]Joy Daily D) cyanocobalamin (vitamin B-12) 500 500 mcg PO DAILY 02/24/23 05/31/23 mcg tablet (B-12 DOTS) magnesium 250 mg tablet 500 mg PO DAILY 03/04/23 05/31/23 baclofen 10 mg tablet mg 05/31/23 docusate sodium 100 mg capsule mg PO 05/31/23 meloxicam 15 mg tablet mg 05/31/23 Previous Rx's Medication Instructions Recorded aspirin 81 mg tablet,delayed 81 mg PO BID 30 days #60 tabs 03/11/23 release (Adult Low Dose Aspirin) oxycodone-acetaminophen 5 mg-325 1 tab PO Q6H PRN pain 7 days #28 03/11/23 mg tablet (Percocet) tabs tizanidine 2 mg tablet 2 mg PO TID PRN muscle spasticity 03/11/23 7 days #21 tabs lidocaine 5 % topical patch 1 patch topical Q24H #15 ea 05/29/23 (Lidoderm) methylprednisolone 4 mg tablets in 4 mg PO DAILY 6 days #21 ea 05/29/23 a dose pack (Medrol (Javid)) diazepam 10 mg tablet (Valium) 10 mg PO DAILY PRN anxiety #1 tab 05/30/23 hydrocodone 7.5 mg-acetaminophen 1 tab PO TID PRN pain #21 tabs 05/30/23 325 mg tablet Allergies Allergy/AdvReac Type Severity Reaction Status Date / Time No Known Drug Allergies [facility]/31[facility]23 07:21 [facility] Medical History Foot pain ?M79.673 - Pain in unspecified foot (ICD-10) Ankle pain ?M25.579 - Pain in unspecified ankle and joints of unspecified foot (ICD-10) Achilles tendinitis ?M76.60 - Achilles tendinitis, unspecified leg (ICD-10) Plantar fascial fibromatosis ?M72.2 - Plantar fascial fibromatosis (ICD-10) Migraine ?G43.909 - Migraine, unspecified, not intractable, without status migrainosus (ICD-10) GERD (gastroesophageal reflux disease) ?K21.9 - Gastro-esophageal reflux disease without esophagitis (ICD-10) Heartburn ?R12 - Heartburn (ICD-10) High cholesterol ?E78.00 - Pure hypercholesterolemia, unspecified (ICD-10) Calcaneal spur ?M77.30 - Calcaneal spur, unspecified foot (ICD-10) Strain of Achilles tendon ?S86.019A - Strain of unspecified Achilles tendon, initial encounter (ICD-10) Low back pain ?M54.50 - Low back pain, unspecified (ICD-10) Kidney stones ?N20.0 - Calculus of kidney (ICD-10) Sleep apnea ?G47.30 - Sleep apnea, unspecified (ICD-10) Hypertension ?I10 - Essential (primary) hypertension (ICD-10) Surgical History History of colonoscopy ?Z98.890 - Other specified postprocedural states (ICD-10) History of foot surgery ?Z98.890 - Other specified postprocedural states (ICD-10) H/O vasectomy (2014) ?Z98.52 - Vasectomy status (ICD-10) H/O shoulder replacement ?Z96.619 - Presence of unspecified artificial shoulder joint (ICD-10) History of carpal tunnel release ?Z98.890 - Other specified postprocedural states (ICD-10) Family History Other Family history of lung cancer Social History Within the past year, how often did you have a drink containing alcohol: monthly or less Smoking status: Never smoker Non-prescribed substance use: denies use 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 Highest level of school completed/degree received: high school graduate Exam Constitutional Vital Signs, click to edit/add: Last Vital Signs Temp 100 F 05/31/23 07:17 Pulse 128 H 05/31/23 07:17 Resp 18 05/31/23 07:17 BP 109/43 L 05/31/23 09:30 Pulse Ox 93 L 05/31/23 09:50 O2 Del Method Room Air, Nasal Cannula 05/31/23 07:30 O2 Flow Rate 2 05/31/23 08:19 Course Vital Signs Vital signs: Vital Signs Temperature 100 F 05/31/23 07:17 Pulse Rate 128 H 05/31/23 07:17 Respiratory Rate 18 05/31/23 07:17 Blood Pressure 144/41 H 05/31/23 07:17 Temperature 100 F 05/31/23 07:17 Pulse Rate 128 H 05/31/23 07:17 Respiratory Rate 18 05/31/23 07:17 Blood Pressure 109/43 L 05/31/23 09:30 Pulse Oximetry 93 L 05/31/23 09:50 Oxygen Delivery Method Room Air, Nasal Cannula 05/31/23 07:30 Oxygen Delivery Flow Rate 2 05/31/23 08:19 Medical Decision Making MDM Narrative Medical decision making narrative: Patient Name: NEHAL BAIG MRN: [id number] date: 1970 Sex: M Assigned Patient Location: ER Current Patient Location: ER Accession/Order Number: [id number] Exam Date: 05/31/2023 08:00 Report Date: 05/31/2023 08:37 At the request of: JOSE BUTTS Procedure: CT lumbar spine wo con EXAMINATION: CT lumbar spine wo con HISTORY: pain COMPARISON: No relevant comparison available. TECHNIQUE: Axial, Coronal, and Sagittal CT images were created without I.V. contrast material. Dose reduction techniques were achieved by using automated exposure control and/or adjustment of mA and/or kV according to patient size and/or use of iterative reconstruction technique. FINDINGS: PARASPINAL AREA: Normal with no visible mass. BONES: Normal alignment with no acute fracture or spondylolisthesis. Minimal degenerative spondylosis. Mild facet osteoarthropathy DISC LEVELS: 12-L1: Early degenerative disc disease is present without focal protrusion or neural impingement. L1-L2: No significant disc/facet abnormality, spinal stenosis, or foraminal stenosis. L2-L3: No significant disc/facet abnormality, spinal stenosis, or foraminal stenosis. L3-L4: No significant disc/facet abnormality, spinal stenosis, or foraminal stenosis. L4-L5: No significant disc/facet abnormality, spinal stenosis, or foraminal stenosis. L5-S1: Severe disc space narrowing with endplate sclerosis. Moderate diffuse disc/osteophyte complex. Moderate right and mild left foraminal stenosis. No central canal stenosis CT/CT lumbar spine wo con IMPRESSION: Degenerative changes at L5-S1 with foraminal stenosis No acute abnormality 0900 we are paging for admission for intractable lumbar pain. Patient received Dilaudid from EMS. Patient was given Valium, Toradol, also Tylenol for fever. Patient was given IV fluids. Patient's lab work shows no significant findings. Patient started a Medrol Dosepak on Saturday, 2 days ago. Patient was given a dose of Solu-Medrol through the IV today. Patient's pain has limited has improved slightly. Patient will be admitted to hospitalist. Patient is seeing [facility] pain management, Dr Haas and Mallika ALCOCER. Patient saw pain management in the office yesterday. Patient is aware of possibly needing rehab, patient has an MRI pending as an outpatient as lumbar sacral spine. Patient is very appreciative and thankful, very nice patient. Patient admitted for further evaluation and treatment. Patient agrees with admission, has been here 2 out of 3 days in the ER Lab Data Labs: Lab Results 05/31/23 05/31/23 Range/Units 07:52 07:53 WBC 15.0 H (4.0-11.0) 10^3/uL RBC 4.15 L (4.70-6.10) 10^6/uL Hgb 11.8 L (14.0-18.0) g/dL Hct 36.4 L (42.0-54.0) % MCV 87.7 (80.0-94.0) fL MCH 28.4 (25.9-34.0) pg MCHC 32.4 (29.9-35.2) g/dL RDW 14.1 (11.0-15.0) % Plt Count 200 (150-450) 10^3/uL MPV 9.9 (9.5-13.5) fL Neut % (Auto) 89.2 H (43.0-75.0) % Lymph % (Auto) 5.0 L (20.5-60.0) % [place] % (Auto) 5.2 (1.7-12.0) % Eos % (Auto) 0.1 L (0.9-7.0) % Baso % (Auto) 0.1 L (0.2-2.0) % Neut # (Auto) 13.4 H (1.4-6.5) 10^3/uL Lymph # (Auto) 0.8 L (1.2-3.8) 10^3/uL [place] # (Auto) 0.8 (0.3-0.8) 10^3/uL Eos # (Auto) 0.0 (0.0-0.7) 10^3/uL Baso # (Auto) 0.0 (0.0-0.1) 10^3/uL Abs Immat Gran (auto) 0.06 H (0.00-0.03) 10^3/uL Imm/Tot Granulo (auto) 0.4 (0.0-0.5) % Sodium 136 (136-145) mmol/L Potassium 4.2 (3.5-5.1) mmol/L Chloride 99 (98-107) mmol/L Carbon Dioxide 29.8 (21.0-32.0) mmol/L Anion Gap 11.4 BUN 27.0 H (7.0-18.0) mg/dL Creatinine 0.98 (0.70-1.30) mg/dL Est GFR ( Amer) >60 (>=60) Est GFR (Non-Af Amer) >60 (>=60) BUN/Creatinine Ratio 27.6 Glucose 105 (74-106) mg/dL Calcium 8.5 (8.5-10.1) mg/dL RSV Antigen Not detected (NOT DETECTE) Discharge Plan Discharge Chief Complaint: Back Pain/Injury Clinical Impression: Chronic lumbosacral pain, Intractable back pain, Febrile illness Patient Disposition: Admitted as Observation Time of Disposition Decision: 09:30 Condition: Fair
[2023-05-31] MEDS: ONDANSETRON 4 MG RAPDIS TABLET SL (07:49)
[2023-05-31] MEDS: 0.9 % SODIUM CHLORIDE 1,000 ML 999 ML IV (07:50)
[2023-05-31] MEDS: KETOROLAC TROMETHAMINE 30 MG/ML VIAL IVP (07:50)
[2023-05-31] MEDS: DIAZEPAM 10 MG/2 ML SYRINGE 5 MG IV (07:50)
[2023-05-31] MEDS: METHYLPREDNISOLONE SOD SUCC PF 125 MG/2 ML VIAL IVP (07:53)
[2023-05-31 08:00] LABS: Basophils Percent Auto 0.1 % (0.2-2.0); Eosinophils Percent Auto 0.1 % (0.9-7.0); Hematocrit 36.4 % (42.0-54.0); Hemoglobin 11.8 g/dL (14.0-18.0); Immature Granulocytes Abs Auto 0.06 10^3/uL (0.00-0.03); Immature Granulocytes Pct Auto 0.4 % (0.0-0.5); Lymphocytes Absolute Auto 0.8 10^3/uL (1.2-3.8); Mean Corpuscular HGB Conc 32.4 g/dL (29.9-35.2); Mean Corpuscular Hemoglobin 28.4 pg (25.9-34.0); Mean Corpuscular Volume 87.7 fL (80.0-94.0); Mean Platelet Volume 9.9 fL (9.5-13.5); Monocytes Absolute Auto 0.8 10^3/uL (0.3-0.8); Monocytes Percent Auto 5.2 % (1.7-12.0); Neutrophils Absolute Auto 13.4 10^3/uL (1.4-6.5); Neutrophils Percent Auto 89.2 % (43.0-75.0); Platelet Count 200 10^3/uL (150-450); Red Blood Count 4.15 10^6/uL (4.70-6.10); Red Cell Distribution Width 14.1 % (11.0-15.0)
[2023-05-31 08:13] LABS: Internal Control Within Normal Limits; Respiratory Syncytial Virus Not Detected (NOT DETECTE)
[2023-05-31 08:19] LABS: Anion Gap 11.4; BUN Creatinine Ratio 27.6; Calcium 8.5 mg/dL (8.5-10.1); Carbon Dioxide 29.8 mmol/L (21.0-32.0); Chloride 99 mmol/L (98-107); Estimated GFR (African America >60 (>=60); Estimated GFR (Non-African Ame >60 (>=60); Glucose 105 mg/dL (74-106); Potassium 4.2 mmol/L (3.5-5.1); Sodium 136 mmol/L (136-145)
[2023-05-31] MEDS: ACETAMINOPHEN 325 MG TABLET 650 MG PO (10:10)
[2023-05-31 10:16] LABS: Bilirubin Urine NEGATIVE (NEGATIVE); Blood Urine TRACE-I (NEGATIVE); Clarity Urine CLEAR (CLEAR); Color Urine YELLOW (YELLOW); Glucose Urine UA NEGATIVE (NEGATIVE); Ketones Urine NEGATIVE (NEGATIVE); Leukocyte Esterase Urine NEGATIVE (NEGATIVE); Nitrite Urine NEGATIVE (NEGATIVE); Protein Urine NEGATIVE (NEG/TRACE); Specific Gravity Urine >=1.030 (1.005-1.025); Urobilinogen Urine 0.2 EU/dL (0.2-1.0)
[2023-05-31 10:28] LABS: WBC Urine 0-2 #/HPF (NONE SEEN)
[2023-05-31 10:35] LABS: Bacteria Urine NONE SEEN #/HPF (NONE SEEN); Mucus Urine NONE SEEN (NONE SEEN); Squamous Epithelial Cell Urine RARE #/LPF (NONE/RARE)
[2023-05-31 10:36] LABS: Cast Seen? SEEN #/LPF (NONE SEEN); Crystals Seen? None Seen #/HPF (None Seen); Hyaline Casts Urine RARE; Urine Culture Indicated ALREADY ORDERED
[2023-05-31 10:40] LABS: SARS-CoV-2 Ag NEGATIVE (NEGATIVE)
[2023-05-31 10:44] LABS: Influenza Virus A Antigen Negative; Influenza Virus B Antigen Negative; Internal Control Within Normal Limits
--- NOTE | 2023-05-31 11:35 | MR_ITS ---
The [address] [address] Patient Name: NEHAL BAIG MRN: [id number] date: 1970 Sex: M Assigned Patient Location: MS Current Patient Location: MS Accession/Order Number: [id number] Exam Date: 05/31/2023 14:25 Report Date: 05/31/2023 15:30 At the request of: GERALDINE STAPLETON Procedure: MR lumbar spine wo con EXAM: MR lumbar spine wo con HISTORY: sudden onset back pain, fever COMPARISON: CT lumbar spine 05/31/2023. TECHNIQUE: Multiplanar multisequence MR imaging of the lumbar spine was performed without intravenous contrast. FINDINGS: Alignment: No substantial subluxation. Vertebrae: Vertebral body heights are maintained. No marrow signal abnormalities to suggest neoplasm. No osseous destructive change. Conus medullaris: Conus medullaris terminates in normal position at L1. Normal signal and contour. Degenerative changes: T12-L1: No substantial canal or foraminal stenosis. L1-L2: No substantial canal or foraminal stenosis. L2-L3: No substantial canal or foraminal stenosis. L3-L4: No substantial canal or foraminal stenosis. L4-L5: No substantial canal or foraminal stenosis. L5-S1: Disc desiccation with moderate posterior disc height loss. Mild edematous degenerative endplate change surrounding the disc anteriorly. Eccentric right disc bulge with right subarticular protrusion which contacts but does not displace or deform the descending right S1 nerve root. Marginal osteophytic spurring contacts the exiting extraforaminal right L5 nerve root. There is no substantial canal stenosis. Mild right greater than left foraminal stenosis. Upper Sacrum: No focal lesion identified. Additional comments: Visualized soft tissues of the abdomen are grossly unremarkable. MR/MR lumbar spine wo con IMPRESSION: 1. No overt evidence for discitis osteomyelitis on the current study given lack of intravenous contrast. Mild presumed edematous degenerative endplate change is present involving the vertebral endplates surrounding L5-S1 disc space with superimposed degenerative change. Correlation with inflammatory markers would be of benefit. 2. Eccentric right marginal osteophytic spurring with superimposed right subarticular protrusion result and contacts without significant displacement or deformity involving the extraforaminal right L5 nerve root and descending right S1 nerve root at L5-S1. Electronically authenticated by: BOBBY ABDI Date: 05/31/2023 15:30
--- NOTE | 2023-05-31 11:41 | P.HP_ITS ---
H&P: HPI History of Present Illness Chief complaint: Back Pain Narrative: patient is a very pleasant 52-year-old male with past medical history of hypertension, GERD, and re-recent left Achilles surgery. He has a history of L5/S1 degenerative changes. He reports that he had a left Achilles rupture and repair completed in 03/09/2023 and he has completed physical therapy for this this past Saturday. He also notes that he's been following with pain management and has received a injection and ablation performed on the L5-S1 area in April,. He was in his normal state of health until this past Saturday night early Saturday morning when he had an acute episode of back pain that woke him from his sleep. He describes the back pain as sharp stabbing like pain located at the center of his back along his sit bone. He says occasionally it will radiate towards the left and right but does not radiate down either leg. He states that his called EMS because he wasn't sure what else to do. He also admits to low-grade fevers chills that also started around this time. He has been to the Emergency Room twice now for this back pain. He did see his pain management doctor yesterday who placed him on [facility] 7.5, agile Dosepak, and a Lidoderm patch. He has had approximately two doses of each all without relief. He denies any bowel or bladder incontinence. He denies any weakness to his lower extremities but just states the sharp back pain does limit his mobility because of the pain. His is also present on admission exam. He had a CT and x-ray of the lumbar spine which showed some L5-S1 stenosis and some degenerative changes elsewhere, but no acute or emergent findings. He was supposed to be scheduled for an outpatient MRI and has been improved, but that has not been done yet. Patient was admitted to the hospitalist service for his fevers and intractable pain. In the emergency department patient's white blood cell count was elevated at fifteen, urinalysis was negative for any acute infection. Influenza, Covid, respiratory syncytial virus were negative. Review of Systems ROS Narrative ROS: a complete review of systems were reviewed with patient and are positive as below or listed in History of Chief Complaint. General:fever, chills, sweats Head: no headache, trauma, visual changes, nausea or vomiting Skin: no reported rashes, itching or sores Eyes: no blurriness of vision Ears: no reported hearing loss, vertigo, earache, or tinnitus Throat: no sore throat, hoarseness, swelling of neck, or tongue pain Heart: no chest pain Lungs: no shortness of breath or cough GI: no diarrhea or vomiting/nausea Urinary: no urinary urgency, frequency or pain Neuro: no numbness or tingling, lower/midline back pain HEM: no bleeding issues or bruising ENDO: no thyroid problems Psych: no anxiety or depression PFSH PFSH Medical History Foot pain ?M79.673 - Pain in unspecified foot (ICD-10) Ankle pain ?M25.579 - Pain in unspecified ankle and joints of unspecified foot (ICD-10) Achilles tendinitis ?M76.60 - Achilles tendinitis, unspecified leg (ICD-10) Plantar fascial fibromatosis ?M72.2 - Plantar fascial fibromatosis (ICD-10) Migraine ?G43.909 - Migraine, unspecified, not intractable, without status migrainosus (ICD-10) GERD (gastroesophageal reflux disease) ?K21.9 - Gastro-esophageal reflux disease without esophagitis (ICD-10) Heartburn ?R12 - Heartburn (ICD-10) High cholesterol ?E78.00 - Pure hypercholesterolemia, unspecified (ICD-10) Calcaneal spur ?M77.30 - Calcaneal spur, unspecified foot (ICD-10) Strain of Achilles tendon ?S86.019A - Strain of unspecified Achilles tendon, initial encounter (ICD-10) Low back pain ?M54.50 - Low back pain, unspecified (ICD-10) Kidney stones ?N20.0 - Calculus of kidney (ICD-10) Sleep apnea ?G47.30 - Sleep apnea, unspecified (ICD-10) Hypertension ?I10 - Essential (primary) hypertension (ICD-10) Surgical History History of colonoscopy ?Z98.890 - Other specified postprocedural states (ICD-10) History of foot surgery ?Z98.890 - Other specified postprocedural states (ICD-10) H/O vasectomy (2013) ?Z98.52 - Vasectomy status (ICD-10) H/O shoulder replacement ?Z96.619 - Presence of unspecified artificial shoulder joint (ICD-10) History of carpal tunnel release ?Z98.890 - Other specified postprocedural states (ICD-10) Family History Grandmother Family history of CHF (congestive heart failure) Family history of COPD (chronic obstructive pulmonary disease) Mother Family history of COPD (chronic obstructive pulmonary disease) Family history of cancer Other Family history of lung cancer Social History Within the past year, how often did you have a drink containing alcohol: monthly or less Smoking status: Never smoker Non-prescribed substance use: denies use 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 Highest level of school completed/degree received: Bachelor's degree Are you now , , , , never or living with a partner: living with partner In a typical week, how many times do you talk on the telephone with family, friends, or neighbors: 3 or more times per week How often do you get together with friends or relatives: 3 or more times per week How often do you attend scientology or hindu services: never Do you belong to any clubs or organizations such as scientology groups unions, fraternal or athletic groups, or school groups: no Total score: 2 Score interpretation: A score of greater than or equal to 2 indicates the lowest level of social isolation. Little interest or pleasure in doing things: not at all Feeling down, depressed, or hopeless: not at all Feel stressed/tense/nervous/anxious/difficulty sleeping: not at all Meds Home Medications and Allergies Home Medications Medication Instructions Recorded Confirmed Type acetaminophen 500 mg capsule 1,000 mg PO .Q12 PRN pain 01/28/23 05/31/23 History ibuprofen 200 mg tablet (I-Prin) 800 mg PO Q12H 01/28/23 05/31/23 History lisinopril 10 mg tablet 10 mg PO DAILY 01/28/23 05/31/23 History omeprazole 20 mg capsule,delayed 20 mg PO DAILY 01/28/23 05/31/23 History release aspirin 81 mg tablet,delayed 81 mg PO DAILY 02/24/23 05/31/23 History release (Adult Aspirin Regimen) cholecalciferol (vitamin D3) 25 2,000 unit PO DAILY 02/24/23 05/31/23 History mcg (1,000 unit) chewable tablet (VitaJoy Daily D) cyanocobalamin (vitamin B-12) 500 500 mcg PO DAILY 02/24/23 05/31/23 History mcg tablet (B-12 DOTS) magnesium 250 mg tablet 500 mg PO DAILY 03/04/23 05/31/23 History lidocaine 5 % topical patch 1 patch topical Q24H #15 ea 05/29/23 05/31/23 Rx (Lidoderm) methylprednisolone 4 mg tablets in 4 mg PO DAILY 6 days #21 ea 05/29/23 05/31/23 Rx a dose pack (Medrol (Javid)) diazepam 10 mg tablet (Valium) 10 mg PO DAILY PRN anxiety #1 tab 05/30/23 05/31/23 Rx hydrocodone 7.5 mg-acetaminophen 1 tab PO TID PRN pain #21 tabs 05/30/23 05/31/23 Rx 325 mg tablet baclofen 10 mg tablet 10 mg PO BID 05/31/23 05/31/23 History docusate sodium 100 mg capsule 100 mg PO DAILY PRN constipation 05/31/23 05/31/23 History Allergies Allergy/AdvReac Type Severity Reaction Status Date / Time No Known Drug Allergies Allergy Verified 05/31/23 07:21 Exam Narrative Exam Narrative: General: Patient is alert, and oriented to person, place and time Patient laying flat in the hospital bed with wet wash rag on forehead Skin: no visible rashes, or ulcers Head: atraumatic, acephalic Eyes: PERRLA, no nystagmus present, conjunctiva clear, no scleral icterus Ears: normal gross auditory acuity Neck: no masses palpated, normal thyroid Heart: Normal rate and rhythm, no murmurs/rubs/gallops Lungs: no audible wheezes, crackles and normal breath sounds all lung de la o Abdomen: Normal audible bowel sounds, no distension, No palpable masses, no organomegaly, no rebound/guarding/ or rigidity Musculoskeletal: ROM is limited due to being in hospital bed but 5/5 strength in bilateral lower extremities, normal sensation, negative straight leg tests bilaterally, no swelling bilateral lower extremities Neuro: CN II-X grossly intact Constitutional Vital Signs, click to edit/add: Last Vital Signs Temp 98.5 F 05/31/23 10:39 Pulse 115 H 05/31/23 10:39 Resp 20 05/31/23 10:39 BP 136/53 05/31/23 10:39 Pulse Ox 94 L 05/31/23 10:39 O2 Del Method Nasal Cannula 05/31/23 10:39 O2 Flow Rate 3 05/31/23 10:39 Results Labs Labs: Short CBC 05/31/23 Range/Units 07:52 WBC 15.0 H (4.0-11.0) 10^3/uL Hgb 11.8 L (14.0-18.0) g/dL Hct 36.4 L (42.0-54.0) % Plt Count 200 (150-450) 10^3/uL BMP 05/31/23 07:52 Sodium 136 Potassium 4.2 Chloride 99 Carbon Dioxide 29.8 BUN 27.0 H Creatinine 0.98 Glucose 105 Calcium 8.5 Urine 05/31/23 Range/Units 10:07 Urine Color Yellow (YELLOW) Urine Clarity Clear (CLEAR) Urine pH 6.0 (5.0-9.0) Ur Specific [place] >=1.030 A (1.005-1.025) Urine Protein Negative (NEG/TRACE) mg/dL Urine Glucose (UA) Negative (NEGATIVE) mg/dL Assessment and Plan Assessment and Plan (1) Febrile illness: Assessment and Plan: Leukocystosis, fever, tachycardia, Steriod induced vs other cause? UA negative, expand viral panel, blood cultures, check MRI today, concern of possible abscess or spinal cause. Hold off antibiotics until studies and viral panel back. IVF now. (2) Intractable back pain: Assessment and Plan: Place on solumedrol 40mg q 8 hours, PRN NORCO, CT reviewed, MRI Today (3) Sleep apnea: Assessment and Plan: wears BIPAP, will bring his Qualifiers: Sleep apnea type: obstructive Qualified Code(s): G47.33 - Obstructive sleep apnea (adult) (pediatric) (4) Hypertension: Assessment and Plan: continue home medications Qualifiers: Hypertension type: primary hypertension Qualified Code(s): I10 - Essential (primary) hypertension (5) High cholesterol: Assessment and Plan: continue home medications Plan Patient is full code Patient is inpatient status given fever onset/sepsis work up is expected to cross 2 midnights
[2023-05-31 11:43] LABS: Adenovirus NOT DETECTED (NOT DETECTE); Bordetella parapertussis NOT DETECTED (NOT DETECTE); Coronavirus 229E NOT DETECTED (NOT DETECTE); Coronavirus HKU1 NOT DETECTED (NOT DETECTE); Coronavirus NL63 NOT DETECTED (NOT DETECTE); Coronavirus OC43 NOT DETECTED (NOT DETECTE); Human Metapneumovirus NOT DETECTED (NOT DETECTE); Human Rhinovirus/Enterovirus NOT DETECTED (NOT DETECTE); Influenza A NOT DETECTED (NOT DETECTE); Influenza B NOT DETECTED (NOT DETECTE); Mycoplasma pneumoniae NOT DETECTED (NOT DETECTE); Parainfluenza Virus 1 NOT DETECTED (NOT DETECTE); Parainfluenza Virus 2 NOT DETECTED (NOT DETECTE); Parainfluenza Virus 3 NOT DETECTED (NOT DETECTE); Parainfluenza Virus 4 NOT DETECTED (NOT DETECTE); Respiratory Syncytial Virus NOT DETECTED (NOT DETECTE); SARS-CoV-2 NOT DETECTED (NOT DETECTE)
[2023-05-31 12:14] LABS: Lactate/Lactic Acid 2.1 mmol/L (0.4-2.0)
[2023-05-31 12:26] LABS: PROCALCITONIN 0.48 ng/mL (0.00-0.50)
[2023-05-31] MEDS: LACTATED RINGER'S SOLUTION 1,000 ML 125 ML IV (13:17)
[2023-05-31] MEDS: ENOXAPARIN SODIUM 40 MG/0.4 ML SYRINGE SUBQ (13:17)
[2023-05-31] MEDS: ASPIRIN 81 MG TABLET.DR PO (13:18)
[2023-05-31] MEDS: LIDOCAINE 5% PATCH 1 PATCH TOPICAL (13:18)
[2023-05-31] MEDS: BACLOFEN 10 MG TABLET PO ×2 (13:18→21:32)
[2023-05-31] MEDS: DIAZEPAM 5 MG TABLET 10 MG PO (14:11)
[2023-05-31] MEDS: METHYLPREDNISOLONE SOD SUCC PF 40 MG/ML VIAL IVP ×2 (15:53→23:06)
[2023-05-31 15:56] LABS: Lactate/Lactic Acid 1.3 mmol/L (0.4-2.0)
--- NOTE | 2023-05-31 16:52 | XR_ITS ---
[facility] [id number] Patient Name: NEHAL BAIG MRN: [id number] date: 1970 Sex: M Assigned Patient Location: [place] Current Patient Location: Accession/Order Number: [id number] Exam Date: 05/31/2023 17:05 Report Date: 05/31/2023 18:11 At the request of: GERALDINE STAPLETON Procedure: XR chest 1V EXAM: XR abdomen 1V, XR chest 1V HISTORY: micro hematuria COMPARISON: 05/29/2023 TECHNIQUE: Chest X-ray AP, 1 view FINDINGS: Support devices: None. Lungs/pleura: No pneumothorax. Bilateral perihilar airspace opacities, no specific and may represent multifocal pneumonia. CT of the chest is recommended for better evaluation. Heart and mediastinum: Normal contours. Bones: No acute abnormality identified. Bowel: Unremarkable bowel gas pattern. No bowel dilatation. No gross pneumoperitoneum on exam of limited sensitivity for that finding. No calcific density to suggest renal stone. XR/XR chest 1V IMPRESSION: Bilateral perihilar airspace opacities, no specific and may represent multifocal pneumonia. CT of the chest is recommended for better evaluation. No calcific density to suggest renal stone. Electronically authenticated by: VIRI MAURICIO Date: 05/31/2023 18:11
--- NOTE | 2023-05-31 16:52 | XR_ITS ---
[facility] [id number] Patient Name: NEHAL BAIG MRN: [id number] date: 1970 Sex: M Assigned Patient Location: [place] Current Patient Location: Accession/Order Number: [id number] Exam Date: 05/31/2023 17:05 Report Date: 05/31/2023 18:11 At the request of: GERALDINE STAPLETON Procedure: XR abdomen 1V EXAM: XR abdomen 1V, XR chest 1V HISTORY: micro hematuria COMPARISON: 05/29/2023 TECHNIQUE: Chest X-ray AP, 1 view FINDINGS: Support devices: None. Lungs/pleura: No pneumothorax. Bilateral perihilar airspace opacities, no specific and may represent multifocal pneumonia. CT of the chest is recommended for better evaluation. Heart and mediastinum: Normal contours. Bones: No acute abnormality identified. Bowel: Unremarkable bowel gas pattern. No bowel dilatation. No gross pneumoperitoneum on exam of limited sensitivity for that finding. No calcific density to suggest renal stone. XR/XR abdomen 1V IMPRESSION: Bilateral perihilar airspace opacities, no specific and may represent multifocal pneumonia. CT of the chest is recommended for better evaluation. No calcific density to suggest renal stone. Electronically authenticated by: VIRI MAURICIO Date: 05/31/2023 18:11
[2023-05-31] MEDS: HYDROCODONE/ACET 5-325 MG TABLET 1 TAB PO (17:31)
[2023-05-31] MEDS: CEFTRIAXONE 1,000 MG in 0.9 % SODIUM CHLORIDE 50 ML 100 MG IV (17:35)
[2023-05-31] MEDS: 0.9 % SODIUM CHLORIDE 1,000 ML 100 ML IV (23:05)
[2023-05-31] MEDS: DOXYCYCLINE HYCLATE 100 MG in 0.9 % SODIUM CHLORIDE 100 ML IV (23:06)
[2023-06-01] VITALS (7 sets, daily range): BP systolic 114–149; BP diastolic 56–78; PULSE 78–102; RESP 16–18; TEMP 36.4–36.8; O2SAT 92–94
[2023-06-01 02:33] LABS: A. calcoaceticus-baumannii Cpx NOT DETECTED (NOT DETECTE); Bacteroides fragilis NOT DETECTED (NOT DETECTE); Candida albicans NOT DETECTED (NOT DETECTE); Candida auris NOT DETECTED (NOT DETECTE); Candida glabrata NOT DETECTED (NOT DETECTE); Candida krusei NOT DETECTED (NOT DETECTE); Candida parapsilosis NOT DETECTED (NOT DETECTE); Candida tropicalis NOT DETECTED (NOT DETECTE); Cryptococcus neoformans/gattii NOT DETECTED (NOT DETECTE); Enterobacter cloacae complex NOT DETECTED (NOT DETECTE); Enterobacterales NOT DETECTED (NOT DETECTE); Enterococcus faecalis NOT DETECTED (NOT DETECTE); Enterococcus faecium NOT DETECTED (NOT DETECTE); Haemophilus influenzae NOT DETECTED (NOT DETECTE); Klebsiella aerogenes NOT DETECTED (NOT DETECTE); Klebsiella pneumoniae group NOT DETECTED (NOT DETECTE); Listeria monocytogenes NOT DETECTED (NOT DETECTE); Neisseria meningitidis NOT DETECTED (NOT DETECTE); Proteus spp. NOT DETECTED (NOT DETECTE); Pseudomonas aeruginosa NOT DETECTED (NOT DETECTE); Salmonella spp. NOT DETECTED (NOT DETECTE); Serratia marcescens NOT DETECTED (NOT DETECTE); Staphylococcus epidermidis NOT DETECTED (NOT DETECTE); Staphylococcus lugdunensis NOT DETECTED (NOT DETECTE); Staphylococcus spp. NOT DETECTED (NOT DETECTE); Stenotrophomonas maltophilia NOT DETECTED (NOT DETECTE); Streptococcus agalactiae NOT DETECTED (NOT DETECTE); Streptococcus pneumoniae NOT DETECTED (NOT DETECTE); Streptococcus pyogenes NOT DETECTED (NOT DETECTE); Streptococcus spp. NOT DETECTED (NOT DETECTE)
[2023-06-01 05:07] LABS: Basophils Percent Auto 0.1 % (0.2-2.0); Hematocrit 33.3 % (42.0-54.0); Hemoglobin 10.7 g/dL (14.0-18.0); Immature Granulocytes Abs Auto 0.09 10^3/uL (0.00-0.03); Immature Granulocytes Pct Auto 0.7 % (0.0-0.5); Lymphocytes Absolute Auto 0.7 10^3/uL (1.2-3.8); Lymphocytes Percent Auto 5.3 % (20.5-60.0); Mean Corpuscular HGB Conc 32.1 g/dL (29.9-35.2); Mean Corpuscular Hemoglobin 27.9 pg (25.9-34.0); Mean Corpuscular Volume 86.9 fL (80.0-94.0); Mean Platelet Volume 10.1 fL (9.5-13.5); Monocytes Absolute Auto 0.6 10^3/uL (0.3-0.8); Monocytes Percent Auto 4.6 % (1.7-12.0); Neutrophils Absolute Auto 11.8 10^3/uL (1.4-6.5); Neutrophils Percent Auto 89.3 % (43.0-75.0); Platelet Count 195 10^3/uL (150-450); Red Blood Count 3.83 10^6/uL (4.70-6.10); White Blood Count 13.2 10^3/uL (4.0-11.0)
[2023-06-01] MEDS: OMEPRAZOLE 20 MG CAPSULE.DR PO (05:30)
[2023-06-01 05:49] LABS: Alanine Aminotransferase 21 U/L (16-63); Albumin Globulin Ratio 0.7; Albumin Level 2.8 g/dL (3.4-5.0); Alkaline Phosphatase 82 U/L (46-116); Anion Gap 13.8; Aspartate Amino Transferase 9 U/L (15-37); BUN Creatinine Ratio 34.8; Bilirubin Total 0.5 mg/dL (0.2-1.0); Calcium 8.6 mg/dL (8.5-10.1); Carbon Dioxide 25.9 mmol/L (21.0-32.0); Chloride 103 mmol/L (98-107); Estimated GFR (African America >60 (>=60); Estimated GFR (Non-African Ame >60 (>=60); Globulin 4.3 g/dL; Glucose 153 mg/dL (74-106); Potassium 4.7 mmol/L (3.5-5.1); Sodium 138 mmol/L (136-145); Total Protein 7.1 g/dL (6.4-8.2)
[2023-06-01] MEDS: HYDROCODONE/ACET 5-325 MG TABLET 1 TAB PO (07:48)
[2023-06-01] MEDS: METHYLPREDNISOLONE SOD SUCC PF 40 MG/ML VIAL IVP (09:13)
[2023-06-01] MEDS: 0.9 % SODIUM CHLORIDE 1,000 ML 100 ML IV (09:32)
[2023-06-01] MEDS: BACLOFEN 10 MG TABLET PO ×2 (09:33→22:14)
[2023-06-01] MEDS: ENOXAPARIN SODIUM 40 MG/0.4 ML SYRINGE SUBQ (09:33)
[2023-06-01] MEDS: ASPIRIN 81 MG TABLET.DR PO (09:33)
[2023-06-01] MEDS: LEVOFLOXACIN IN DEXTROSE 5 % 750 MG/150 ML IV.SOLN 100 MG IV (09:33)
[2023-06-01] MEDS: DOCUSATE SODIUM 100 MG CAPSULE PO (09:35)
[2023-06-01] MEDS: LIDOCAINE 5% PATCH 1 PATCH TOPICAL (09:38)
--- NOTE | 2023-06-01 10:13 | P.PN_ITS ---
Progress Note: Subjective Subjective Interval history: Patient does have cough more dry cough, serology shows no acute viral infection, will try to obtain sputum culture. Exam Constitutional Vital Signs, click to edit/add: Last Vital Signs Temp 98.0 F 06/01/23 07:53 Pulse 80 06/01/23 07:53 Resp 16 06/01/23 07:53 BP 131/78 06/01/23 07:53 Pulse Ox 94 L 06/01/23 07:53 O2 Del Method Room Air 06/01/23 07:53 O2 Flow Rate 2 05/31/23 16:04 Documenting provider has reviewed patient's vital signs: yes Common normals: no apparent distress HENMT Common normals: normocephalic and head/scalp atraumatic Lymph Lymphatic: no lymphadenopathy noted Chest Common normals: inspection of chest normal Respiratory Common normals: normal respiratory effort and no retractions Auscultation: rhonchi Cardio Common normals: regular rate and regular rhythm GI Common normals: Normal to inspection, nondistended, normoactive bowel sounds present and soft to palpation Progress Note: Objective Labs Labs: Short CBC 06/01/23 Range/Units 04:40 WBC 13.2 H (4.0-11.0) 10^3/uL Hgb 10.7 L (14.0-18.0) g/dL Hct 33.3 L (42.0-54.0) % Plt Count 195 (150-450) 10^3/uL BMP 06/01/23 04:40 Sodium 138 Potassium 4.7 Chloride 103 Carbon Dioxide 25.9 BUN 24.0 H Creatinine 0.69 L Glucose 153 H Calcium 8.6 Liver Function 06/01/23 Range/Units 04:40 Total Bilirubin 0.5 (0.2-1.0) mg/dL AST 9 L (15-37) U/L ALT 21 (16-63) U/L Alkaline Phosphatase 82 (46-116) U/L Albumin 2.8 L (3.4-5.0) g/dL Urine 05/31/23 Range/Units 10:07 Urine Color Yellow (YELLOW) Urine Clarity Clear (CLEAR) Urine pH 6.0 (5.0-9.0) Ur Specific [place] >=1.030 A (1.005-1.025) Urine Protein Negative (NEG/TRACE) mg/dL Urine Glucose (UA) Negative (NEGATIVE) mg/dL Progress Note: A&P Assessment and Plan (1) Febrile illness: Assessment and Plan: Fever with unknown source until chest x-ray comes back and shows possible bilateral pneumonia, viral possible since it is dry, will try to obtain sputum culture, 2 blood cultures of, positive for gram-positive cocci versus contaminant less likely, review antibiotics (2) Intractable back pain: Assessment and Plan: Add Toradol, Norflex and increase steroids (3) Sleep apnea: Assessment and Plan: He was machine Qualifiers: Sleep apnea type: obstructive Qualified Code(s): G47.33 - Obstructive sleep apnea (adult) (pediatric) (4) Hypertension: Assessment and Plan: Maintain current medications Qualifiers: Hypertension type: primary hypertension Qualified Code(s): I10 - Essential (primary) hypertension (5) High cholesterol: Assessment and Plan: Continue current medications Plan Added diagnoses Moderate protein calorie malnutrition-diet supplement Leukocytosis-improved slightly Iron deficiency anemia-monitor daily Lactic acidosis secondary to the bilateral pneumonia-lactic acidosis has resolved Hyperglycemia-likely related to steroids-monitor daily Hypomagnesemia-supplement
[2023-06-01 10:28] LABS: Source Blood
[2023-06-01] MEDS: DOXYCYCLINE HYCLATE 100 MG in 0.9 % SODIUM CHLORIDE 250 ML 250 MG IV ×2 (11:07→22:56)
[2023-06-01] MEDS: KETOROLAC TROMETHAMINE 30 MG/ML VIAL IVP ×3 (11:33→22:56)
[2023-06-01] MEDS: ORPHENADRINE 60 MG/ 2 ML VIAL IV ×2 (11:33→22:56)
[2023-06-01] MEDS: LISINOPRIL 10 MG TABLET PO (14:13)
[2023-06-01] MEDS: METHYLPREDNISOLONE SOD SUCC PF 125 MG/2 ML VIAL IVP ×2 (14:13→22:15)
[2023-06-01] MEDS: PIPERACILLIN SODIUM/TAZOBACTAM 3.375 GM in 0.9 % SODIUM CHLORIDE 50 ML IV (15:32)
[2023-06-02] VITALS (8 sets, daily range): BP systolic 117–159; BP diastolic 57–73; PULSE 89–107; RESP 18–20; TEMP 36.6–36.8; O2SAT 91–93
[2023-06-02] MEDS: PIPERACILLIN SODIUM/TAZOBACTAM 3.375 GM in 0.9 % SODIUM CHLORIDE 50 ML IV ×4 (00:13→23:30)
[2023-06-02] MEDS: KETOROLAC TROMETHAMINE 30 MG/ML VIAL IVP ×4 (05:32→22:03)
[2023-06-02] MEDS: OMEPRAZOLE 20 MG CAPSULE.DR PO (05:32)
[2023-06-02] MEDS: METHYLPREDNISOLONE SOD SUCC PF 125 MG/2 ML VIAL IVP ×3 (05:32→21:51)
[2023-06-02 05:39] LABS: Basophils Percent Auto 0.1 % (0.2-2.0); Hematocrit 35.1 % (42.0-54.0); Hemoglobin 11.3 g/dL (14.0-18.0); Immature Granulocytes Abs Auto 0.35 10^3/uL (0.00-0.03); Immature Granulocytes Pct Auto 2.1 % (0.0-0.5); Lymphocytes Percent Auto 5.8 % (20.5-60.0); Mean Corpuscular HGB Conc 32.2 g/dL (29.9-35.2); Mean Corpuscular Hemoglobin 27.9 pg (25.9-34.0); Mean Corpuscular Volume 86.7 fL (80.0-94.0); Mean Platelet Volume 10.2 fL (9.5-13.5); Monocytes Absolute Auto 0.7 10^3/uL (0.3-0.8); Monocytes Percent Auto 4.2 % (1.7-12.0); Neutrophils Absolute Auto 14.5 10^3/uL (1.4-6.5); Neutrophils Percent Auto 87.8 % (43.0-75.0); Platelet Count 225 10^3/uL (150-450); Red Blood Count 4.05 10^6/uL (4.70-6.10); White Blood Count 16.5 10^3/uL (4.0-11.0)
[2023-06-02 05:56] LABS: Alanine Aminotransferase 37 U/L (16-63); Albumin Globulin Ratio 0.7; Albumin Level 2.8 g/dL (3.4-5.0); Alkaline Phosphatase 83 U/L (46-116); Anion Gap 12.9; Aspartate Amino Transferase 15 U/L (15-37); BUN Creatinine Ratio 28.7; Bilirubin Total 0.5 mg/dL (0.2-1.0); Calcium 8.8 mg/dL (8.5-10.1); Carbon Dioxide 24.5 mmol/L (21.0-32.0); Chloride 106 mmol/L (98-107); Estimated GFR (African America >60 (>=60); Estimated GFR (Non-African Ame >60 (>=60); Globulin 4.3 g/dL; Glucose 150 mg/dL (74-106); Potassium 4.4 mmol/L (3.5-5.1); Sodium 139 mmol/L (136-145); Total Protein 7.1 g/dL (6.4-8.2)
[2023-06-02] MEDS: ENOXAPARIN SODIUM 40 MG/0.4 ML SYRINGE SUBQ (08:40)
[2023-06-02] MEDS: ASPIRIN 81 MG TABLET.DR PO (08:43)
[2023-06-02] MEDS: LISINOPRIL 10 MG TABLET PO (08:43)
[2023-06-02] MEDS: BACLOFEN 10 MG TABLET PO ×2 (08:43→20:25)
[2023-06-02] MEDS: LIDOCAINE 5% PATCH 1 PATCH TOPICAL (08:43)
[2023-06-02] MEDS: LEVOFLOXACIN IN DEXTROSE 5 % 750 MG/150 ML IV.SOLN 100 MG IV (09:46)
[2023-06-02] MEDS: ORPHENADRINE 60 MG/ 2 ML VIAL IV ×2 (11:31→22:03)
--- NOTE | 2023-06-02 11:38 | P.PN_ITS ---
Progress Note: Subjective Subjective Interval history: Cough persisting, still dry Exam Constitutional Vital Signs, click to edit/add: Last Vital Signs Temp 98.3 F 06/02/23 08:10 Pulse 105 H 06/02/23 08:10 Resp 18 06/02/23 08:12 BP 151/70 H 06/02/23 08:10 Pulse Ox 91 L 06/02/23 08:10 O2 Del Method Room Air 06/02/23 08:10 O2 Flow Rate 2 05/31/23 16:04 Documenting provider has reviewed patient's vital signs: yes Common normals: no apparent distress HENMO Common normals: normocephalic and head/scalp atraumatic Lymph Lymphatic: no lymphadenopathy noted Chest Common normals: inspection of chest normal Respiratory Common normals: normal respiratory effort and no retractions Auscultation: rhonchi (Sounds worse today, somewhat better air exchange) Cardio Common normals: regular rate and regular rhythm GI Common normals: Normal to inspection, nondistended, normoactive bowel sounds present and soft to palpation Progress Note: Objective Labs Labs: Short CBC 06/02/23 Range/Units 05:00 WBC 16.5 H (4.0-11.0) 10^3/uL Hgb 11.3 L (14.0-18.0) g/dL Hct 35.1 L (42.0-54.0) % Plt Count 225 (150-450) 10^3/uL BMP 06/02/23 05:00 Sodium 139 Potassium 4.4 Chloride 106 Carbon Dioxide 24.5 BUN 25.0 H Creatinine 0.87 Glucose 150 H Calcium 8.8 Liver Function 06/02/23 Range/Units 05:00 Total Bilirubin 0.5 (0.2-1.0) mg/dL AST 15 (15-37) U/L ALT 37 (16-63) U/L Alkaline Phosphatase 83 (46-116) U/L Albumin 2.8 L (3.4-5.0) g/dL Progress Note: A&P Assessment and Plan (1) Febrile illness: Assessment and Plan: Fever with unknown source until chest x-ray comes back and shows possible bilateral pneumonia, viral possible since it is dry, will try to obtain sputum culture, 2 blood cultures of, positive for Granulicatella adiacens-patient will need echocardiogram to rule out valvular vegetations, may need JUDY, also long-term antibiotics based on the type of infection and he has a left shoulder replacement so risk of that becoming infected is significantly high. 4 to 6 weeks of IV antibiotics. (2) Intractable back pain: Assessment and Plan: Add Toradol, Norflex and increase steroids-somewhat better (3) Sleep apnea: Assessment and Plan: He has machine Qualifiers: Sleep apnea type: obstructive Qualified Code(s): G47.33 - Obstructive sleep apnea (adult) (pediatric) (4) Hypertension: Assessment and Plan: Maintain current medications Qualifiers: Hypertension type: primary hypertension Qualified Code(s): I10 - Essential (primary) hypertension (5) High cholesterol: Assessment and Plan: Continue current medications Plan Added diagnoses Moderate protein calorie malnutrition-diet supplement Leukocytosis-higher today. Sensitivities on infection should be back tomorrow. Current antibiotic should cover that type of infection Iron deficiency anemia-monitor daily Lactic acidosis secondary to the bilateral pneumonia with Granulicatella adiacens bacteremia on 2 blood cultures Hyperglycemia-likely related to steroids-monitor daily Hypomagnesemia-supplement Initially placed in observation status, patient definitely inpatient status with positive blood cultures, high risk for valvular vegetations as well as infected left shoulder secondary to his left shoulder replacement. Will have PICC line placed. Medical treatment spanning 2 midnights. Patient likely need 4 to 6 weeks of IV antibiotics.
--- NOTE | 2023-06-02 11:42 | CA_ITS ---
Patient Name: NEHAL BAIG MR#: [id number] : 1970 Exam Date: 06/03/2023 Ordering Doctor: DR Demetrius Parish . ECHOCARDIOGRAM REPORT PROCEDURE: CA ECHO DOPPLER COMPLETE INDICATIONS: R/o valvular vegetations, pneumonia, fever, hypertension COMPARISON: None. DESCRIPTION: COMPLETE ECHOCARDIOGRAM Real-time transthoracic echocardiography with 2D, M-mode, spectral and color flow Doppler performed. QUALITY: Technical quality was adequate. 73 , 360#, BSA 2.76 m2 LEFT VENTRICLE: Normal chamber size. Normal left ventricular wall thickness. LV EF: Global left ventricular systolic function is hyperdynamic; visually estimated ejection fraction 65 to 70%. Regional wall motion is difficult to assess, no obvious abnormalities. DIASTOLIC: Normal diastolic function. ATRIAL SEPTUM: Inadequately seen. LEFT ATRIUM: Normal chamber size. RIGHT ATRIUM: Normal chamber size. RIGHT VENTRICLE: Normal chamber size. Normal right ventricular systolic function. TRICUSPID VALVE: Normal mobility and thickness. No regurgitation. Unable to assess right-sided pressures due to lack of measurable cuspid regurgitation. MITRAL VALVE: Normal mobility and thickness. No obvious vegetations are present. No evidence of mitral valve stenosis. There is no mitral annular calcification. Trivial mitral regurgitation. AORTIC VALVE: Normal trileaflet appearance. No visible sclerosis. Normal leaflet mobility. No evidence of aortic valve stenosis. No aortic regurgitation. AORTIC ROOT: Normal diameter and appearance. PULMONIC VALVE: Not well visualized. No stenosis. No regurgitation. PERICARDIUM: No evidence of pericardial effusion. IVC: Collapses with inspirations. IVC is normal in size. CONCLUSION: 1. Global left ventricular systolic function is hyperdynamic; visually estimated ejection fraction is 65 to 70% 2. Normal right ventricular size and systolic function 3. Normal diastolic function 4. Valves are poorly seen; no obvious valvular masses or abnormalities on transthoracic echocardiography Adult Echocardiography Procedure Report Left Ventricle LVEDD (3.7 - 5.6 cm): 5.84 cm LVESD (2.2 - 4.0 cm): 4.50 cm LVIVS thickness (0.6 - 1.2 cm): 0.95 cm LVPW thickness (0.5 - 1.0 cm): 0.77 cm e': 0.11 m/s E - e': 9.10 LVOT Max Gradient: 5.73 mm[Hg] LVOT Area (cm2): 1.20 m/s Peak Velocity (LVOT): 1.20 m/s Mean Velocity (LVOT): 0.82 m/s LVOT Diameter 2.13 cm Left Atrium LA Volume Index (2D A2C): 23.60 ml/m2 Left Atrium Systolic Dimension: 3.83 cm Mitral Valve MV E to A Ratio: 1.17 Mitral Valve A-Wave Peak Velocity: 0.85 m/s Mitral Valve E-Wave Peak Velocity: 0.99 m/s Right Ventricle Aorta AO Root Diam: 3.47 cm Ascending Ao Diam: 3.03 cm Aortic Valve AoV Area (Peak Derik): 1.60 cm2, 1.58 cm2 AoV Area (VTI): 2.04 cm2, 2.02 cm2 Peak Velocity(Antegrade Flow): 2.71 m/s, 2.63 m/s Peak Gradient(Antegrade Flow): 29.28 mm[Hg], 27.73 mm[Hg] Mean Velocity(Antegrade Flow): 1.83 m/s, 1.82 m/s Mean Gradient(Antegrade Flow): 15.15 mm[Hg], 14.86 mm[Hg] Velocity Time Integral: 46.69 cm, 45.81 cm Tricuspid Valve Pulmonic Valve Peak Velocity: 1.24 m/s Peak Gradient: 5.89 mm[Hg], 6.38 mm[Hg] Right Atrium Right Atrium Systolic Pressure: 38.14 ml, 38.14 ml Dictated by: Zina Carter M.D. on 06/03/2023 at 14:03 Approved by: Zina Carter M.D. on 06/03/2023 at 14:06
[2023-06-02] MEDS: DOXYCYCLINE HYCLATE 100 MG in 0.9 % SODIUM CHLORIDE 250 ML 250 MG IV ×2 (11:48→22:03)
[2023-06-02] MEDS: IPRATROPIUM/ALBUTEROL SULFATE 3 ML AMPUL.NEB IH ×2 (16:27→23:10)
[2023-06-03] VITALS (12 sets, daily range): BP systolic 133–161; BP diastolic 61–78; PULSE 90–105; RESP 18–20; TEMP 36.5–37; O2SAT 94–97
[2023-06-03] MEDS: IPRATROPIUM/ALBUTEROL SULFATE 3 ML AMPUL.NEB IH ×2 (04:16→10:18)
[2023-06-03 05:43] LABS: Basophils Percent Auto 0.2 % (0.2-2.0); Hemoglobin 11.2 g/dL (14.0-18.0); Immature Granulocytes Abs Auto 0.72 10^3/uL (0.00-0.03); Immature Granulocytes Pct Auto 4.3 % (0.0-0.5); Lymphocytes Percent Auto 5.9 % (20.5-60.0); Mean Corpuscular Hemoglobin 28.4 pg (25.9-34.0); Mean Corpuscular Volume 88.8 fL (80.0-94.0); Mean Platelet Volume 10.3 fL (9.5-13.5); Monocytes Absolute Auto 0.5 10^3/uL (0.3-0.8); Monocytes Percent Auto 3.1 % (1.7-12.0); Neutrophils Absolute Auto 14.4 10^3/uL (1.4-6.5); Neutrophils Percent Auto 86.5 % (43.0-75.0); Platelet Count 236 10^3/uL (150-450); Red Blood Count 3.94 10^6/uL (4.70-6.10); Red Cell Distribution Width 14.1 % (11.0-15.0); White Blood Count 16.7 10^3/uL (4.0-11.0)
[2023-06-03] MEDS: METHYLPREDNISOLONE SOD SUCC PF 125 MG/2 ML VIAL IVP ×3 (05:51→21:48)
[2023-06-03] MEDS: OMEPRAZOLE 20 MG CAPSULE.DR PO (05:51)
[2023-06-03] MEDS: KETOROLAC TROMETHAMINE 30 MG/ML VIAL IVP ×4 (05:52→22:00)
[2023-06-03] MEDS: PIPERACILLIN SODIUM/TAZOBACTAM 3.375 GM in 0.9 % SODIUM CHLORIDE 50 ML IV ×3 (05:52→23:24)
[2023-06-03 05:58] LABS: Alanine Aminotransferase 39 U/L (16-63); Albumin Globulin Ratio 0.7; Albumin Level 2.9 g/dL (3.4-5.0); Alkaline Phosphatase 72 U/L (46-116); Anion Gap 16.1; Aspartate Amino Transferase 14 U/L (15-37); BUN Creatinine Ratio 21.6; Bilirubin Total 0.6 mg/dL (0.2-1.0); Calcium 8.5 mg/dL (8.5-10.1); Carbon Dioxide 23.8 mmol/L (21.0-32.0); Chloride 102 mmol/L (98-107); Estimated GFR (African America >60 (>=60); Estimated GFR (Non-African Ame >60 (>=60); Glucose 198 mg/dL (74-106); Potassium 3.9 mmol/L (3.5-5.1); Sodium 138 mmol/L (136-145); Total Protein 6.9 g/dL (6.4-8.2)
[2023-06-03] MEDS: LIDOCAINE 5% PATCH 1 PATCH TOPICAL (08:46)
[2023-06-03] MEDS: LEVOFLOXACIN IN DEXTROSE 5 % 750 MG/150 ML IV.SOLN 100 MG IV (08:48)
[2023-06-03] MEDS: ENOXAPARIN SODIUM 40 MG/0.4 ML SYRINGE SUBQ (08:49)
[2023-06-03] MEDS: ASPIRIN 81 MG TABLET.DR PO (08:49)
[2023-06-03] MEDS: BACLOFEN 10 MG TABLET PO ×2 (08:49→21:15)
[2023-06-03] MEDS: LISINOPRIL 10 MG TABLET PO (08:49)
--- NOTE | 2023-06-03 09:10 | P.PN_ITS ---
Progress Note: Subjective Subjective Interval history: Cough somewhat worse today. Does not really tolerate the DuoNebs well. Exam Constitutional Vital Signs, click to edit/add: Last Vital Signs Temp 98.6 F 06/03/23 07:38 Pulse 103 H 06/03/23 07:40 Resp 18 06/03/23 08:27 BP 161/61 H 06/03/23 07:38 Pulse Ox 94 L 06/03/23 07:38 O2 Del Method Room Air 06/03/23 07:38 O2 Flow Rate 2 05/31/23 16:04 Documenting provider has reviewed patient's vital signs: yes Common normals: no apparent distress HENMT Common normals: normocephalic and head/scalp atraumatic Lymph Lymphatic: no lymphadenopathy noted Chest Common normals: inspection of chest normal Respiratory Common normals: normal respiratory effort and no retractions Auscultation: rhonchi (Unchanged from previous day, was worse yesterday compared to admission) Cardio Common normals: regular rate and regular rhythm GI Common normals: Normal to inspection, nondistended, normoactive bowel sounds present and soft to palpation Progress Note: Objective Labs Labs: Short CBC 06/03/23 Range/Units 04:36 WBC 16.7 H (4.0-11.0) 10^3/uL Hgb 11.2 L (14.0-18.0) g/dL Hct 35.0 L (42.0-54.0) % Plt Count 236 (150-450) 10^3/uL BMP 06/03/23 04:36 Sodium 138 Potassium 3.9 Chloride 102 Carbon Dioxide 23.8 BUN 25.0 H Creatinine 1.16 Glucose 198 H Calcium 8.5 Liver Function 06/03/23 Range/Units 04:36 Total Bilirubin 0.6 (0.2-1.0) mg/dL AST 14 L (15-37) U/L ALT 39 (16-63) U/L Alkaline Phosphatase 72 (46-116) U/L Albumin 2.9 L (3.4-5.0) g/dL Progress Note: A&P Assessment and Plan (1) Febrile illness: Assessment and Plan: Fever with unknown source until chest x-ray comes back and shows possible bilateral pneumonia, viral possible since it is dry, will try to obtain sputum culture, 2 blood cultures of, positive for Granulicatella adiacens-patient will need echocardiogram to rule out valvular vegetations, may need JUDY, also long-term antibiotics based on the type of infection and he has a left shoulder replacement so risk of that becoming infect ed is significantly high. 4 to 6 weeks of IV antibiotics. Awaiting for sensitivities today (2) Intractable back pain: Assessment and Plan: Add Toradol, Norflex and increase steroids-somewhat better as well as shoulder better (3) Sleep apnea: Assessment and Plan: He has machine Qualifiers: Sleep apnea type: obstructive Qualified Code(s): G47.33 - Obstructive sleep apnea (adult) (pediatric) (4) Hypertension: Assessment and Plan: Maintain current medications Qualifiers: Hypertension type: primary hypertension Qualified Code(s): I10 - Essential (primary) hypertension (5) High cholesterol: Assessment and Plan: Continue current medications Plan Added diagnoses Moderate protein calorie malnutrition-diet supplement Leukocytosis-higher today. Sensitivities on infection should be back later today. 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 Will have PICC line placed. Medical treatment spanning 2 midnights. Here likely least 2 more days patient likely need 4 to 6 weeks of IV antibiotics.
--- NOTE | 2023-06-03 09:24 | SWNOTE1 ---
SW spoke to case management and pt will need IV anbx at discharge, but not sure what anbx at this time. SW to work on getting home calos set up, but not able to get IV anbx set with infusion company until we know the antibiotic.
--- NOTE | 2023-06-03 09:45 | CM.NOTE ---
Rounds made with Dr. Parish. Dr. Parish reviews blood culture findings and need for IV antibiotics with Mr. Engel. Mr. Engel verbalizes understanding.
--- OUTSIDE RECORDS SUMMARY | 2023-06-03 09:51 | XMS_ITS | CCD ---
Author Name Unknown Address [address] [place] [address] Organization [facility] Care Team Providers Care Coin Machine Service Repairer Name Role Phone Pal PHOTOGRAPHY INTERN - [facility] Primary Care Provide r [facility] Primary Care Unavailable JUANITA CARMONA Consulting Unavailable JUANITA CARMONA Attending Unavailable JUANITA CARMONA Admitting Unavailable [facility] PHOTOGRAPHY INTERN.[facility] Primary Care Provider [facility] Primary Care Physician UnavailNicolasa Perry Unavailable Unavailable [facility] Primary Care Physician [facility] PHOTOGRAPHY INTERN.[facility] Primary Care Provider [facility] PHOTOGRAPHY INTERN.[facility] Primary Care Provider [facility] PHOTOGRAPHY INTERN.[facility] Primary Care Provider DR KINGSLEY HERRERA V [...] Care Unavailable ANH MENA Attending Unavailab le [facility] [place] Referring Unavailable ANH MENA Referring Unavailab TARSHA Willson Attending Unavailable [facility] Primary Care Unavailable [facility] Primary Care Unavailable [facility] Referring Unavailable [facility] Primary Care Unavailable [facility] Referring Unavailable BledsoeRishiJoel Natalie Attending Unavailable Bledsoe, Joel L Admitting Unavailable [facility] Primary Care Unavailable [facility] Primary Care Unavailable BledsoeJoel L Attending Unavailable ELENA ADAMS Attending Unavailable ELENA ADAMS Admitting Unavailable [facility] Primary Care Unavailable Joel Bledsoe L Attending Unavailable [facility] Primary Care Unavailable Bledsoe, Joel L Admitting Unavailable Joel Bledsoe L Attending Unavailable [facility] Unavailable BledsoeJoel Attending Unavailable Bledsoe, Joel L Admitting Unavailable [facility] Primary Care Unavailable Kelly Yi Unavailable Pal, ISABELLE-C [facility] Primary Care Provider HAIDER Yi Attending Provider [phone] HAIDER Quezada Attending Provider HAIDER Guerrero Primary Care Provider Siri Quezada Unavailable Vonnie Guerrero Primary Care Physician [phone] Kandis Amado Unavailable Pal, BINDER LOCKSTITCH-C [facility] Primary Care Provider HAIDER Yi Attending Provider [phone] HAIDER Quezada Attending Provider HAIDER Guerrero Primary Care Provider [phone] DO Huan Cowan Attending Provider [phone] Katya Harrington Unavailable Unavailable Siri Quezada Admitting Unavailable Siri Quezada Attending Unavailable [facility] Primary Care Unavailabl e Siri Quezada Admitting Unavailable Siri Quezada Attending Unavailable Vonnie Guerrero Primary Care Unavailable Siri Quezada Admitting Unavailable Siir Quezada Attending Unavailable Yolanda, Vonnie Moran Primary Care Unavailable Yung, Huan A Admitting Unavailable Brown, Huan A Attending Unavailable Salome Aguillon [facility] Unavailabl e Kassidy, Kelly Admitting Unavailable Kassidy, Kelly Attending Unavailable BROWN, HUAN A Referring Unavailable BROWN, HUAN A Attending Unavailable BROWN, HUAN A Attending Unavailable BROWN, HUAN A Referring Unavailable Giedraitis , Brenton Reid Attending Unavailable Giedraitis , Andrius Reid Attending Unavailable Gieditis , Andrius Reid Attending Unavailable Giedraitis , Andrius Vytjazas Attending Unavailable Brown, Huan A Attending Unavailable Brown, Huan A Admitting Unavailable Yolanda, INTERVENTION ANALYST Vonnie L Attending Unavailable Brown, Huan A Admitting Unavailable Brown, Huan A Attending Unavailable Brown, Huan A Attending Unavailable Brown, Huan A Admitting Unavailable Allergies Allergy Classification Reported Allergen(s) Allergy Type Date of Onset Reaction(s) Facility (1 source) No Known Medication Allergies; Translations: [No Known Medication Allergies] Propensity to adverse reactions to drug (disorder) [facility] Repository Medications Current Medications Medication Drug [...] hours. Start: 03-01-2019 take 2 tablets by mo [facility] every six hours as needed for pain acetaminophen 325 mg Tab 650 mg = 2 tab(s), Oral, q6hr, PRN Pain, Refills(s) 0 Start Date: 12/1/19 Status: Ordered take 2 tablets by mo uth every twelve hours Acetaminophen 500 MG 2 tablet Orally bid Active take 1 tablet by tori every six hours as needed Acetaminophen 500 [...] day(s), # 9 cap(s), Refills(s) 0, Pharmacy: [facility], 185.5, cm, 08/08/21 12:06:00 EDT, Height/Length [...] constipation, # 20 cap(s), Refills(s) 0, Pharmacy: [facility], 185.5, cm, 08/08/21 12:06:00 EDT, Height/Length [...] milk, # 60 tab(s), Refills(s) 0, Pharmacy: [facility], 185.5, cm, 08/08/21 12:06:00 EDT, Height/Length [...] Daily, # 90 tab(s), Refills(s) 3, Pharmacy: [facility]/pharmacy #[id number], 185.5, cm, 01/09/23 16:37:00 EDT, [...] Ordered Start: 03-23-2017 take 1 capsule by [facility] once daily Prilosec 20 mg Cap - DR 20 mg, Oral, Daily, Refills(s) 0 Start Date: 03/23/17 Status: Ordered Start: 2016 take 1 capsule by [facility] once daily Omeprazole 40 mg capsule Indications: Gastroesophageal reflux disease, esophagitis presence not specified Take 1 capsule by mouth once daily. 30 capsule 11 2016 Active take 1 tablet by [facility] once daily PriLOSEC OTC 20 MG 1 tablet 30 minutes before morning meal Orally Once a day Active End: 07-25-2021 Omeprazole Magnesium (PRILOS EC OTC) 20 mg tablet 2 tablet 0 07/25/2021 Discontinued (Discontinued by Patient) Comment on above: Take 1 capsule by [facility] once daily. 2 tablet ondansetron (ZOFRAN-ODT) [...] Starting Sat08/01/20 at 2358 polyethylene glycol 3350 75221 mg powder for oral solution (1 source) [...] tab(s), Refill(s) 0, 1-2 tab(s) Oral q4hr, [facility], 185.5, cm, 08/08/21 12:06:00 EDT, Height/Length [...] autopap titration study. Please fax results to [phone]. DX: JACOBY G47.33 1 Each 0 11/08/2016 09/13/2020 Discontinued Comment on above: Please perform autop ap titration study. Please fax results to [phone]. DX: JACOBY G47.33 doxepin hydrochloride 10 mg [...] Comment on above: Take 2 tablets by [facility] daily with dinner. 1 ml morphine [...] 10 mL injection (DEFINITY) polyethylene glycol 3350 426218 mg / potassium chloride 2970 mg / sodium bicarbonate 6740 mg / sodium chloride 5860 mg / sodium sulfate 05642 mg powder for oral solution (14 sources) [...] [Morbid obesity with BMI of 50.0-59.9, adult ([facility])] Onset: 11-26-2019 Chronic Other nutritional; endocrine; and metabolic disorders (4 sources) Body mass index (BMI) 50.0-59.9, adult; Translations: [Morbid obesity with BMI of 50.0-59.9, adult ([facility])] Onset: 11-26-2019 Chronic Other nutritional; [...] fasting glycemia; Translations: [Impaired fasting glucose] Onset: 05-17-2022 Episodic Other and unspecified benign neoplasm (9 [...] Test Name Value Interpretation Reference Range Facility ED Note-Physicianon 05-31-19 ED Note-Physician [id number]#1.00TIFF Normal [facility] ED Note-Physicianon 05-29-19 ED Note-Physician [id number]#1.00TIFF Normal [facility] RAD - MISCon 05-29-2023 RAD - MISC [id number]#1.00TIFF Normal [facility] [id number]#1.00TIFF Normal [facility] [id number]#1.00TIFF Normal [facility] Consultation Noteon 05-23-19 Consultation Note [id number]#1.00TIFF Normal [facility] Family Medicine Office/Clini c Noteon 04-30-2023 Family Medicine Office/Clinic Note HPI Staff Nehal is a 52 year old male presenting to establish care Establish Care: History: Any previous diagnosis: HTN, Heel spurs Asthma, Depression, headaches, headaches, migraines, kidney stones, JACOBY History of seeing any specialist: Dr cowan ortho When was your last doctors visit: Last provider: Dr Aguillon Any recent labs: [facility] around 8 months ago Flu: refused Health Maintenance UTD: Colonoscopy: 2021 PSA: unsure if it has ever been checked Acute: Current issues/complaints: Pt has sleep study done and uses machine would like cpap supplies sent to [facility] in [place] pt does wear full mask- Resmed Air Touch F20 machine is Air [employer]ve 10VAuto Needs refill on lisinopril fYI: pt is seeing Neurology referral was sent through [employer]. 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 pt will have them done at [facility] on Saturday. Ordered: Misc Prescription, [...] will send order to medical supplies in [place] Ordered: Misc Prescription, Full Mask Resmed Air [...] Daily, # 90 tab(s), Refills(s) 3, Pharmacy: [facility]/pharmacy #[id number], 185.5, cm, 01/09/23 16:37:00 EDT, Height/Length Dosing, 174.3, kg, 01/09/23 16:37:00 EDT, Weight Dosing Follow-up No qualifying data (more content not included)... Normal [facility] Comment on above: Result Comment: Elec tronically Signed By: Vonnie Gardner\.br\Date and Time Signed: 04/30/23 14:06 EST Operative Reporton Operative Report [id number]#1.00TIFF Normal [facility] MR SHOULDER LEFT WO IV CONTR Kyle [...] Not Available Comment on above: Order Comment: [facility] - C9 Approved Patient had Left Shoulder surgery 1 year ago Previous MRI Lab Reportson 03-14-2023 Lab Reports [id number]#1.00TIFF Normal [facility] Lab Miscellaneous-on 03-13 Lab Miscellaneous See Ref Report Invalid Interpretation Code [facility] Comment on above: Performed By: #### 1 [id number] ####[facility] [address] [place] [address] Reference Lab Reporton 03-13 Reference Lab Report [id number]#1.00TIFF Normal [facility] Lab Miscellaneous-on 03-12 Lab Miscellaneous See Ref Report Invalid Interpretation Code [facility] Comment on above: Result Comment: Perf ormed at: [employer] [id number] PhD João Blankenship See scanned report Performed at: [employer] [id number] PhD João Blankenship Performed By: #### 1 [id number] ####[facility] [address] [place] [address] Reference Lab Reporton 03-12 Reference Lab Report [id number]#1.00TIFF Normal [facility] Lab Miscellaneous-LCon 03-08 Lab Miscellaneous see ref oil laboratory analyst Invalid Interpretation Code [facility] Comment on above: Performed By: #### 1 [id number] ####[facility] [address] [place] [address] Reference Lab Reporton 03-08 Reference Lab Report [id number]#1.00TIFF Normal [facility] Auto Diffon 03-07-2023 Basophils/100 WBC (Bld) 0.7 % Normal 0.0-2.0 [facility] Comment on above: Order Comment: Order Added by Discern Expert. Performed By: #### 2 445043, 5110305, 1334262 ####[address] [address] Basophils/Leukocytes Auto (Bld) [Pure # fraction] 0.1 E9/L Normal 0.0-0.2 [facility] Comment on above: Order Comment: Order Added by Discern Expert. Performed By: #### 2 303295, 5938522, 4582209 ####[address] [address] Eosinophils/100 WBC (Bld) 2.6 % Normal 0.0-8.0 [facility] Comment on above: Order Comment: Order Added by Discern Expert. Performed By: #### 2 787450, 7806271, 5300933 ####[address] [address] Eosinophils/Leukocyt es Auto (Bld) [Pure # fraction] 0.2 E9/L Normal 0.0-0.5 [facility] Comment on above: Order Comment: Order Added by Discern Expert. Performed By: #### 2 590554, 4768849, 5024240 ####[address] [address] Lymphocytes/100 WBC (Bld) 18.6 % Normal 14.0-50.0 [facility] Comment on above: Order Comment: Order Added by Discern Expert. Performed By: #### 2 180510, 4117150, 8910216 ####[address] [place] [address] Lymphocytes/Leukocyt es Auto (Bld) [Pure # fraction] 1.3 E9/L Normal 1.0-4.0 [facility] Comment on above: Order Comment: Order Added by Discern Expert. Performed By: #### 2 210551, 2450512, 8506450 ####[address] [address] Monocytes/100 WBC (Bld) 10.3 % Normal 4.0-14.0 [facility] Comment on above: Order Comment: Order Added by Wilbert Expert. Performed By: #### 2 643886, 1629129, 8402986 ####[address] [address] Monocytes/Leukocytes Auto (Bld) [Pure # fraction] 0.7 E9/L Normal 0.2-1.0 [facility] Comment on above: Order Comment: Order Added by Discern Expert. Performed By: #### 2 847207, 7742793, 7361397 ####[address] [address] Neutrophils/100 WBC (Bld) 67.8 % Normal 36.0-75.0 [facility] Comment on above: Order Comment: Order Added by Discern Expert. Performed By: #### 2 809303, 4996201, 9574450 ####[address] [address] Neutrophils/Leukocyt es Auto (Bld) [Pure # fraction] 4.8 E9/L Normal 2.0-7.5 [facility] Comment on above: Order Comment: Order Added by Wilbert Expert. Performed By: #### 2 372617, 8012783, 7341473 ####[address] [address] CBC w/ Auto Diffon 3 Erythrocyte distribution width (RBC) [Ratio] 13.1 % Normal 10.9-14.2 [facility] Comment on above: Performed By: #### 2 295950, 2079628, 5935586 ####[address] [place] [address] Hematocrit (Bld) [Volume fraction] 39.2 % Normal 37.7-49.0 [facility] Comment on above: Performed By: #### 2 567273, 5724766, 2152811 ####[address] [address] Hemoglobin (Bld) [Mass/Vol] 13.4 g/dL Low 13.5-17.5 [facility] Comment on above: Performed By: #### 2 466213, 6407304, 5542308 ####[address] [address] MCH (RBC) [Entitic mass] 29.0 pg Normal 27.0-34.0 [facility] Comment on above: Performed By: #### 2 229995, 3696401, 6902135 ####[address] [address] MCHC (RBC) [Mass/Vol] 34.3 g/dL Normal 31.4-36.0 [facility] Comment on above: Performed By: #### 2 560590, 6124584, 8375557 ####[address] [address] MCV (RBC) [Entitic vol] 84.6 fL Normal 80.0-100.0 [facility] Comment on above: Performed By: #### 2 264995, 5168236, 4692872 ####[address] [address] Platelet mean volume (Bld) [Entitic vol] 7.7 fL Normal 6.4-10.8 [facility] Comment on above: Performed By: #### 2 060596, 4492258, 6871554 ####[address] [place] [address] Platelets (Bld) [#/Vol] 261.0 E9/L Normal 150.0-500. 0 [facility] Comment on above: Performed By: #### 2 201942, 6123016, 1299754 ####[address] [address] RBC (Bld) [#/Vol] 4.6 E12/L Normal 4.3-5.9 [facility] Comment on above: Performed By: #### 2 932329, 2683375, 4746159 ####[facility] [address] [place] [address] WBC corrected for nucl RBC Auto (Bld) [#/Vol] 7.1 E9/L Normal 4.0-11.0 [facility] Comment on above: Performed By: #### 2 879561, 8048356, 3403139 ####[facility] [address] [place] [address] CHEMISTRYOrdered By: SYSTEM SYSTEM on 03-07-2023 CRP [Mass/Vol] 1.8 mg/dL Normal <=1.9mg/dL [facility] Remis ol CRPon 03-07-2023 CRP [Mass/Vol] 1.8 mg/dL Normal <=1.9 [facility] Comment on above: Performed By: #### 2 591716, 3559936, 1131143 ####[address] [address] Consent for Treatmenton Consent for Treatment [id number]#1.00TIFF Normal [facility] Erythrocyte Sedimentation Ra aniya 03-07-2023 ESR (Bld) [Velocity] 9 mm/h Normal 0-19 [facility] Comment on above: Result Comment: PERF ORMED BY: [facility] [address] [place] [id number] PATHOLOGIST SHIP'S OFFICER BARI GREENE M.D. Performed By: #### E SR #### [facility] [id number] [facility] Erythrocyte sedimentation ra te by Photometric methodOrdered By: Huan Cowan on 03-07-2023 ESR Photometric method (Bld) [Velocity] 9 mm/hr 0-19 [facility] HEMATOLOGYOrdered By: SYSTEM SYSTEM on [...] 29.0 pg Normal 27.0 - 34.0 pg [facility] HemeAutoSS MCHC (RBC) [Mass/Vol] 34.3 g/dL Normal 31.4 - 36.0 gm/dL FT HemeAutoSS MCV (RBC) [Entitic vol] 84.6 fL Normal 80.0 - 100.0 fL FT HemeAutoSS Platelet mean volume (Bld) [Entitic vol] 7.7 fL Normal 6.4 - 10.8 fL [facility] HemeAutoSS Platelets (Bld) [#/Vol] 261.0 E9/L Normal 150.0 - 500.0 E9/L [facility] HemeAutoSS RBC (Bld) [#/Vol] 4.6 E12/L Normal 4.3 - 5.9 E12/L [facility] HemeAutoSS WBC corrected for nucl RBC Auto (Bld) [#/Vol] 7.1 E9/L Normal 4.0 - 11.0 E9/L [facility] HemeAutoSS Lab Miscellaneous-LCon 03-07 Test Code 152045 Invalid Interpretation Code [facility] Comment on above: Performed By: #### 1 [id number] ####[address] [address] Test Code TO [facility] Invalid Interpretation Code [facility] Comment on above: Performed By: #### 1 [id number] ####[address] [address] Test Name [place] 6 Invalid Interpretation Code [facility] Comment on above: Performed By: #### 1 [id number] ####[facility] [address] [place] [address] Test Name SED RATE/FIREAL Invalid Interpretation Code [facility] Comment on above: Performed By: #### 1 [id number] ####[address] [address] Physician Orderon 03-07-2023 Physician Order [id number]#1.00TIFF Normal [facility] Reference Laboratory Testing Ordered By: Yasmeen Ca on 03-07-2023 Sodium [Moles/Vol] 483883 mmol/L Invalid Interpretation Code [facility] SendOutsSS Test Code TO [facility] Invalid Interpretation Code [facility] SendOutsSS Test Name SED RATE/FIREAL Invalid Interpretation Code [facility] SendOutsSS Test Name [place] 6 Invalid Interpretation Code [facility] SendOutsSS Operative Reporton Operative Report [id number]#1.00TIFF Normal [facility] Formson 02-27-2023 Forms [id number]#1.00TIFF Normal [facility] Provider Letteron 02-27-2023 Provider Letter (Inserted Image. Jessica ble to display) [address] [place] [address] February 27, 2023 NEHAL BAIG [address] [place] [address] : [address] Mazariegos, The above patient has been evaluated at your request for preoperative clearance. After assessment of available pertinent labs and diagnostic tests, I feel this patient is medically optimized for surgery. Final discretion of whether the patient is cleared for surgery remains up to the surgeon/anesthesiologist. Thank you, MOSHE Mota Normal [facility] Auto Diffon 02-26-2023 Basophils/100 WBC (Bld) 0.6 % Normal 0.0-2.0 [facility] Comment on above: Order Comment: Order Added by Discern Expert. Performed By: #### 2 655378, 1329243 ####[facility] [address] [place] [address] Basophils/Leukocytes Auto (Bld) [Pure # fraction] 0.1 E9/L Normal 0.0-0.2 [facility] Comment on above: Order Comment: Order Added by Discern Expert. Performed By: #### 2 289033, 6369472 ####[facility] [address] [place] [address] Eosinophils/100 WBC (Bld) 2.3 % Normal 0.0-8.0 [facility] Comment on above: Order Comment: Order Added by Discern Expert. Performed By: #### 2 582268, 4694254 ####[address] [address] Eosinophils/Leukocyt es Auto (Bld) [Pure # fraction] 0.2 E9/L Normal 0.0-0.5 [facility] Comment on above: Order Comment: Order Added by Discern Expert. Performed By: #### 2 518428, 7706468 ####[address] [address] Lymphocytes/100 WBC (Bld) 16.2 % Normal 14.0-50.0 [facility] Comment on above: Order Comment: Order Added by Discern Expert. Performed By: #### 2 774214, 3869898 ####[address] [address] Lymphocytes/Leukocyt es Auto (Bld) [Pure # fraction] 1.5 E9/L Normal 1.0-4.0 [facility] Comment on above: Order Comment: Order Added by Discern Expert. Performed By: #### 2 698233, 3654520 ####[address] [address] Monocytes/100 WBC (Bld) 6.8 % Normal 4.0-14.0 [facility] Comment on above: Order Comment: Order Added by Wilbert Expert. Performed By: #### 2 803793, 0495524 ####[address] [address] Monocytes/Leukocytes Auto (Bld) [Pure # fraction] 0.6 E9/L Normal 0.2-1.0 [facility] Comment on above: Order Comment: Order Added by Discern Expert. Performed By: #### 2 680031, 0066704 ####[address] [address] Neutrophils/100 WBC (Bld) 74.1 % Normal 36.0-75.0 [facility] Comment on above: Order Comment: Order Added by Discern Expert. Performed By: #### 2 817500, 8315788 ####[address] [place] [address] Neutrophils/Leukocyt es Auto (Bld) [Pure # fraction] 6.6 E9/L Normal 2.0-7.5 [facility] Comment on above: Order Comment: Order Added by Discern Expert. Performed By: #### 2 924043, 4776167 ####[address] [address] CBC w/ Auto Diffon Erythrocyte distribution width (RBC) [Ratio] 13.6 % Normal 10.9-14.2 [facility] Comment on above: Performed By: #### 2 645395, 1129150 ####[address] [address] Hematocrit (Bld) [Volume fraction] 40.5 % Normal 37.7-49.0 [facility] Comment on above: Performed By: #### 2 836905, 6155607 ####[address] [address] Hemoglobin (Bld) [Mass/Vol] 13.9 g/dL Normal 13.5-17.5 [facility] Comment on above: Performed By: #### 2 594545, 7420085 ####[address] [address] MCH (RBC) [Entitic mass] 28.9 pg Normal 27.0-34.0 [facility] Comment on above: Performed By: #### 2 365931, 1810811 ####[address] [address] MCHC (RBC) [Mass/Vol] 34.3 g/dL Normal 31.4-36.0 [facility] Comment on above: Performed By: #### 2 952994, 8790618 ####[address] [address] MCV (RBC) [Entitic vol] 84.2 fL Normal 80.0-100.0 [facility] [place] Comment on above: Performed By: #### 2 [id number], [id number] ####[facility] [address] [place] [address] Platelet mean volume (Bld) [Entitic vol] 7.7 fL Normal 6.4-10.8 [facility] Comment on above: Performed By: #### 2 [id number], [id number] ####[address] [address] Platelets (Bld) [#/Vol] 244.0 E9/L Normal 150.0-500. 0 [facility] Comment on above: Performed By: #### 2 [id number], [id number] ####[address] [address] RBC (Bld) [#/Vol] 4.8 E12/L Normal 4.3-5.9 [facility] Comment on above: Performed By: #### 2 [id number], [id number] ####[address] [address] WBC corrected for nucl RBC Auto (Bld) [#/Vol] 8.9 E9/L Normal 4.0-11.0 [facility] Comment on above: Performed By: #### 2 [id number], [id number] ####[address] [address] Consent for Treatmenton 01-31 Consent for Treatment [id number]#1.00TIFF Normal [facility] HEMATOLOGYOrdered By: SYSTEM SYSTEM on 02-26-2023 Basophils/100 [...] 244.0 E9/L Normal 150.0 - 500.0 E9/L [facility] HemeAutoSS RBC (Bld) [#/Vol] 4.8 E12/L Normal 4.3 - 5.9 E12/L [facility] HemeAutoSS WBC corrected for nucl RBC Auto (Bld) [#/Vol] 8.9 E9/L Normal 4.0 - 11.0 E9/L [facility] HemeAutoSS Physician Orderon 02-26-2023 Physician Order [id number]#1.00TIFF Normal [facility] CHEMISTRYOrdered By: SYSTEM SYSTEM on 02-25-2023 CRP [Mass/Vol] 6.7 mg/dL High <=1.9mg/dL [facility] Remis ol CRPon 02-25-2023 CRP [Mass/Vol] 6.7 mg/dL High <=1.9 [facility] Comment on above: Performed By: #### 2 [id number] ####[facility] [address] [place] [address] Consent for Treatmenton 01-31 Consent for Treatment [id number]#1.00TIFF Normal [facility] ED Note-Physicianon 02-26-20 ED Note-Physician [id number]#1.00TIFF Normal [facility] Lab Miscellaneous-LCon 02-25 Test Code 801347 Invalid Interpretation Code [facility] Comment on above: Performed By: #### 1 [id number] ####[facility] [address] [place] [address] Test Name Interleukin-6 Invalid Interpretation Code [facility] Comment on above: Performed By: #### 1 [id number] ####[facility] [address] [place] [address] Physician Orderon 02-25-2023 Physician Order [id number]#1.00TIFF Normal [facility] RAD - MISCon 02-25-2023 RAD - MISC [id number]#1.00TIFF Normal [facility] Reference Laboratory Testing Ordered By: Elysia Oseguera on 02-25-2023 Sodium [Moles/Vol] 222581 mmol/L Invalid Interpretation Code [facility] SendOutsSS Test Name Interleukin-6 Invalid Interpretation Code [facility] SendOutsSS Consultation Noteon 02-20-20 Consultation Note [id number]#1.00TIFF Normal [facility] Operative Reporton 3 Operative Report [id number]#1.00TIFF Normal [facility] Consultation Noteon 01-30-20 Consultation Note [id number]#1.00TIFF Normal [facility] RAD - MRI Reporton 3 RAD - MRI Report [id number]#1.00TIFF Normal [facility] XR cerv spine AP/LAT/FLX/EXT on 01-17-2023 XR cerv spine AP/LAT/FLX/EXT [facility] [address] XRay Report Signed Patient: Nehal Baig MR#: [id number] 8 : 1970 Acct:[id number] Age/Sex: 52 / M ADM Date: 01/17/23 Loc: XD Room: Type: [facility] Attending Dr: Siri MALONEY Copies to: HAIDER [...] Khadijah Roach M.D.01/17/2023 4:22 PM Dictation Location: [facility] [address]--[address] Transcribed By: [facility] 01/17/23 1622 Dictated By: Khadijah Roach MD 01/17/23 1620 Signed By: 01/17/23 162 [facility] XR lumbar spine 6V w bending on 01-17-2023 XR lumbar spine 6V w bending [facility] [address] XRay Report Signed Patient: Nehal Baig MR#: [id number] 8 : 1970 Acct:[id number] Age/Sex: 52 / M ADM Date: 01/17/23 Loc: XD Room: Type: [facility] Attending Dr: Siri BERRYC Copies to: [...] Christopher Cedeno M.D.01/17/2023 12:51 PM Dictation Location: [facility]-05 Transcribed By: [facility] 01/17/23 1251 Dictated By: Christopher Cedeno DO 01/17/23 1246 Signed By: 01/17/23 1251 [facility] RAD - MISCon 01-16-2023 RAD - MIS [id number]#1.00TIFF [facility] RAD - MISC [id number]#1.00TIFF Normal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 Comment on above: Order Comment: Speci men Type: BLOOD SPECIMENOrdering Facility: [facility] Address: [address] [place], [place] [address] Performed By: #### 5 8410-2 ####[facility] LABIA [id number] [place] [address] [place] MCH (RBC) [Entitic mass] 29.0 pg Normal 26.0-34.[address] [facility] Comment on above: Order Comment: Speci men Type: BLOOD SPECIMENOrdering Facility: [facility] Address: [address] [place], [place] [address] Performed By: #### 5 8410-2 ####[facility] LABIA [id number] [place] [address] [place] MCHC (RBC) [Mass/Vol] 33.2 g/dL Normal 30.5-36.[address] [facility] Comment on above: Order Comment: Speci men Type: BLOOD SPECIMENOrdering Facility: [facility] Address: [address] [place] [address] [place] [address] Performed By: #### 5 8410-2 ####[facility] LABCLIA [id number] [place] [address] [place] MCV (RBC) [Entitic vol] 87.5 fL Normal 80.0-100.[address] [facility] Comment on above: Order Comment: Speci men Type: BLOOD SPECIMENOrdering Facility: [facility] Address: [address] [place] [address] Performed By: #### 5 8410-2 ####[facility] LABIA [id number] [place] [address] [place] Nucleated RBC (Bld) [#/Vol] 10*3/uL Normal <0.[address] [facility] Comment on above: Order Comment: Speci men Type: BLOOD SPECIMENOrdering Facility: [facility] Address: [address] Performed By: #### 5 8410-2 ####[facility] LABIA [id number] [place] [address] [place] Platelet mean volume (Bld) [Entitic vol] 10.6 fL Normal 9.0-12.[address] [facility] Comment on above: Order Comment: Speci men Type: BLOOD SPECIMENOrdering Facility: [facility] Address: [address] [place] [address] Performed By: #### 5 8410-2 ####[facility] LABIA [id number] [place] [address] [place] Platelets (Bld) [#/Vol] 198 10*3/uL Normal 150-[address] [facility] Comment on above: Order Comment: Speci men Type: BLOOD SPECIMENOrdering Facility: [facility] Address: [address] [place] [address] Performed By: #### 5 8410-2 ####[facility] LABCLIA [id number] [place] [address] [place] RBC (Bld) [#/Vol] 4.79 10*6/uL Normal 4.20-6.00 [facility] Comment on above: Order Comment: Speci men Type: BLOOD SPECIMENOrdering Facility: [facility] Address: [address] [place] [address] Performed By: #### 5 8410-2 ####[facility] LABCLIA [id number] [address] WBC (Bld) [#/Vol] 6.46 10*3/uL Normal 3.70-11.00 [facility] Comment on above: Order Comment: Speci men Type: BLOOD SPECIMENOrdering Facility: [facility] Address: [address] [place] [address] Performed By: #### 5 8410-2 ####[facility] LABCLIA [id number] [address] OF [facility] Comprehensive metabolic 2000 panelon 02-10-2022 Albumin [Mass/Vol] 4.5 g/dL Normal 3.9-4.9 [facility] Comment on above: Order Comment: Speci men Type: BLOOD SPECIMENOrdering Facility: [facility] Address: [address] [place] [address] Performed By: #### 3 016-3, 29685-5 ####[facility] LABCLIA [id number] [address] [place]#### [address]-4 ####[facility] LABCLIA [id number] [place] [address] [place] [facility] [place] LABORATORYCLIA [id number] [place] [address] [place] ALP [Catalytic activity/Vol] 85 U/L Normal 38-[address] [facility] Comment on above: Order Comment: Speci men Type: BLOOD SPECIMENOrdering Facility: [facility] Address: [facility] [place] [id number] Performed By: #### 3 016-3, 11601-3 ####[facility] LABCLIA [id number] [place] [address] [place]#### 34155-0 ####[facility] LABCLIA [id number] [address] [place] LABORATORYCLIA [id number] [place] [address] [place] ALT [Catalytic activity/Vol] 34 U/L Normal 10-[address] [facility] Comment on above: Order Comment: Speci men Type: BLOOD SPECIMENOrdering Facility: [facility] Address: [address] [place] [address] Performed By: #### 3 016-3, 75674-7 ####[facility] LABCLIA [id number] [place] [address] [place]#### 37252-8 ####[facility] LABCLIA [id number] [address] LABORATORYCLIA [id number] [address] [place] Anion gap [Moles/Vol] 10 mmol/L Normal 9-[address] [facility] Comment on above: Order Comment: Speci men Type: BLOOD SPECIMENOrdering Facility: [facility] Address: [address] [place] [id number] Performed By: #### 3 016-3, 03695-6 ####[facility] LABCLIA [id number] [place] [address] [place]#### 62811-5 ####[facility] LABCLIA [id number] [place] [id number] [facility] [place] LABORATORYCLIA [id number] [place] [address] [place] AST [Catalytic activity/Vol] 25 U/L Normal 14-[address] [facility] Comment on above: Order Comment: Speci men Type: BLOOD SPECIMENOrdering Facility: [facility] Address: [address] [place] [address] Performed By: #### 3 016-3, 61595-9 ####[facility] LABCLIA [id number] [place] [address] [place]#### 99151-7 ####[facility] LABCLIA [id number] [address] LABORATORYCLIA [id number] [place] [address] [place] Bilirubin [Mass/Vol] 0.4 mg/dL Normal 0.2-1.3 [facility] Comment on above: Order Comment: Speci men Type: BLOOD SPECIMENOrdering Facility: [facility] Address: [address] [place] [address] Performed By: #### 3 016-3, 88009-5 ####[facility] LABCLIA [id number] [place] [address] [place]#### 47186-1 ####[facility] LABCLIA [id number] [address] [place] [facility] LABORATORYCLIA [id number] [place] [address] [place] Calcium [Mass/Vol] 9.3 mg/dL Normal 8.5-10.2 [facility] Comment on above: Order Comment: Speci men Type: BLOOD SPECIMENOrdering Facility: [facility] Address: [address] Performed By: #### 3 016-3, 94589-7 ####[facility] LABCLIA [id number] [place] [address] [place]#### 17097-0 ####[facility] LABCLIA [id number] [place] [address] [place] [facility] [place] LABORATORYCLIA [id number] [place] [address] [place] Chloride [Moles/Vol] 103 mmol/L Normal 97-105 [facility] Comment on above: Order Comment: Speci men Type: BLOOD SPECIMENOrdering Facility: [facility] Address: [address] [place], [place] [address] Performed By: #### 3 016-3, 86087-2 ####[facility] LABCLIA [id number] [place] [address] [place]#### 94831-6 ####[facility] LABCLIA [id number] [address] [place] [facility] LABORATORYCLIA [id number] [place] [address] [place] CO2 [Moles/Vol] 26 mmol/L Normal 22-[address] [facility] Comment on above: Order Comment: Speci men Type: BLOOD SPECIMENOrdering Facility: [facility] Address: [address] [place], [place] [address] Performed By: #### 3 016-3, 83997-6 ####[facility] LABCLIA [id number] [place] [address] [place]#### 00141-3 ####[facility] LABCLIA [id number] [place] [id number] [place] [facility] [place] LABORATORYCLIA [id number] [place] [address] [place] Creatinine [Mass/Vol] 0.90 mg/dL Normal 0.73-1.[address] [facility] Comment on above: Order Comment: Speci men Type: BLOOD SPECIMENOrdering Facility: [facility] Address: [address] [address] Performed By: #### 3 016-3, 40939-9 ####[facility] LABCLIA [id number] [place] [address] [place]#### 44313-5 ####[facility] LABIA [id number] [address] LABORATORYCLIA [id number] [place] [address] [place] ESTIMATED GLOMERULAR FILTRATION RATE 105 mL/min/1.73m??? Normal >=[address] [facility] Comment on above: Order Comment: Speci men Type: BLOOD SPECIMENOrdering Facility: [facility] Address: [address] [address] Result Comment: Halle mated Glomerular Filtration Rate [...] actual GFR. Performed By: #### 3 016-3, 57476-0 ####[facility] LABCLIA [id number] [place] [address] [place]#### 88464-4 ####[facility] LABCLIA [id number] [address] LABORATORYCLIA [id number] [place] [address] [place] Glucose [Mass/Vol] 115 mg/dL High 74-99 [facility] Comment on above: Order Comment: Speci [facility] Type: BLOOD SPECIMENOrdering Facility: [facility] Address: [address] [place] [address] Result Comment: The [place] Diabetes Association (ADA) provides guidance for cutoff [...] Standards of Medical Care in Diabetes 2016, [place] Diabetes Association. Diabetes Care. 2016.39(Suppl 1). Performed By: #### 3 016-3, 36882-7 ####[facility] LABIA [id number] [address] STATES OF [facility]#### 51873-8 ####[facility] LABCLIA [id number] [address] LABORATORYIA [id number] [place] [address] [place] Potassium [Moles/Vol] 4.2 mmol/L Normal 3.7-5.[address] [facility] Comment on above: Order Comment: Speci men Type: BLOOD SPECIMENOrdering Facility: [facility] Address: [address] [place] [address] Performed By: #### 3 016-3, ####[facility] LABIA [id number] [place] [address] [place]#### 57890-6 ####[facility] LABIA [id number] [address] LABORATORYIA [id number] [address] [place] Protein [Mass/Vol] 6.9 g/dL Normal 6.3-8.0 [facility] Comment on above: Order Comment: Speci men Type: BLOOD SPECIMENOrdering Facility: [facility] Address: [address] [id number] Performed By: #### 3 016-3, 86317-3 ####[facility] LABCLIA [id number] [place] [address] [place]#### 87065-3 ####[facility] LABCLIA [id number] [place] [id number] [place] [facility] [place] LABORATORYCLIA [id number] [place] [address] [place] Sodium [Moles/Vol] 139 mmol/L Normal 136-144 [facility] Comment on above: Order Comment: Speci men Type: BLOOD SPECIMENOrdering Facility: [facility] Address: [address] [place] [address] Performed By: #### 3 016-3, ####[facility] LABCLIA [id number] [place] [address] [place]#### 38209-3 ####[facility] LABCLIA [id number] [address] STATES [facility] LABORATORYCLIA [id number] [place] [address] [place] Urea nitrogen [Mass/Vol] 15 mg/dL Normal 9-[address] [facility] Comment on above: Order Comment: Speci men Type: BLOOD SPECIMENOrdering Facility: [facility] Address: [address] [id number] Performed By: #### 3 016-3, 17127-3 ####[facility] LABCLIA [id number] [place] [address] [place]#### 75668-3 ####[facility] LABCLIA [id number] [address] [address] [place] [facility] [place] LABORATORYCLIA [id number] [facility] [place] [address] [place] HbA1c (Bld)on 02-10-2022 Average glucose Estimated from glycated hemoglobin (Bld) [Mass/Vol] 105 mg/dL Normal [facility] Comment on above: Order Comment: Tessa flores Type: BLOOD SPECIMENOrdering Facility: [facility] Address: [address] [place] [address] Result Comment: eAG: (Estimated average glucose) is a calculated value from HgbA1c and is patient representative of the average blood glucose level in the last 2-3 month period. Performed By: #### 5 5454-3 ####[facility] LABCLIA [id number] [address] HbA1c (Bld) [Mass fraction] 5.3 % Normal 4.3-5.[address] [facility] Comment on above: Order Comment: Tessa flores Type: BLOOD SPECIMENOrdering Facility: [facility] Address: [address] [place] [address] Result Comment: Amer ican Diabetes Association guidelines indicate that patients with HgbA1c in the range 5.7-6.4% are at increased risk for development of diabetes, and intervention by lifestyle modification may be beneficial. HgbA1c greater or equal to 6.5% is considered diagnostic of diabetes. Performed By: #### 5 5454-3 ####[facility] LABCLIA [id number] [address] [place] Lipid 1996 panelon 2 Cholesterol [Mass/Vol] 179 mg/dL Normal <[address] [facility] Comment on above: Order Comment: Tessa flores Type: BLOOD SPECIMENOrdering Facility: [facility] Address: [address] [place] [address] Result Comment: <200 mg/dL, Desirable 200-239 mg/dL, Borderline high >239 mg/dL, High Performed By: #### 3 016-3, 00879-3 ####[facility] LABCLIA [id number] [address]#### [address]-9 ####[facility] LABCLIA [id number] [address] [place] LABORATORYCLIA [id number] [place], [place] [address] [place] [address] Cholesterol in HDL [Mass/Vol] 36 mg/dL Low >[address] [facility] Comment on above: Order Comment: Speci men Type: BLOOD SPECIMENOrdering Facility: [facility] Address: [address] [id number] Result Comment: 40-5 9 mg/dL, Acceptable >59 mg/dL, High: Negative risk factor for coronary heart disease <40 mg/dL, Low: Positive risk factor for coronary heart disease Performed By: #### 3 016-3, 79321-9 ####[facility] LABCLIA [id number] [address] [place]#### 03111-0 ####[facility] LABCLIA [id number] [address] [place] LABORATORYCLIA [id number] [address] Cholesterol in LDL [Mass/Vol] 104 mg/dL High <[address] [facility] Comment on above: Order Comment: Speci men Type: BLOOD SPECIMENOrdering Facility: [facility] Address: [address] [place], [place] [id number] Result Comment: <100 mg/dL, Optimal 100-129 mg/dL, Near optimal/above optimal 130-159 mg/dL, Borderline high 160-189 mg/dL, High >189 mg/dL, Very high Secondary prevention optimal LDL Cholesterol levels are recommended to be < 70 mg/dL Performed By: #### 3 016-3, 39907-5 ####[facility] LABCLIA [id number] [address] [place]#### [address]-7 ####[facility] LABCLIA [id number] [address] [place] LABORATORYCLIA [id number] [address] Cholesterol in LDL/Cholesterol in HDL [Mass ratio] 2.89 {ratio} High <2.[address] [facility] Comment on above: Order Comment: Speci men Type: BLOOD SPECIMENOrdering Facility: [facility] Address: [address] [place] [address] Result Comment: Refe caitlin: 1. National Cholesterol Education Program ATP III Guideline At-A-Glance Quick Desk Reference: National Heart, Lung, and Blood [place]. National Institutes of Health. 2001: NIH Publication No. 01-3305. 2. An International Atherosclerosis Society position paper: global recommendations for the management of dyslipidemia: executive summary, Atherosclerosis. 2014: 232(2):410-413. Performed By: #### 3 016-3, 32509-9 ####[facility] LABCLIA [id number] [place] [address] [place]#### 83815-3 ####[facility] LABCLIA [id number] [address] LABORATORYCLIA [id number] [place] [address] [place] Cholesterol in VLDL [Mass/Vol] 39 mg/dL High <[address] [facility] Comment on above: Order Comment: Speci men Type: BLOOD SPECIMENOrdering Facility: [facility] Address: [address] [place] [address] Performed By: #### 3 016-3, 56680-0 ####[facility] LABCLIA [id number] [place] [address] [place]#### 31894-9 ####[facility] LABCLIA [id number] [address] STATES OF [facility] LABORATORYCLIA [id number] [place] [address] [place] Cholesterol non HDL [Mass/Vol] 143 mg/dL High <[address] [facility] Comment on above: Order Comment: Speci men Type: BLOOD SPECIMENOrdering Facility: [facility] Address: [address] [place], [place] [id number] Result Comment: <130 mg/dL, Optimal 130-159 mg/dL, Near optimal/above optimal 160-189 mg/dL, Borderline high 190-219 mg/dL, High >219 mg/dL, Very high Secondary prevention optimal non HDL Cholesterol levels are recommended to be <100 mg/dL Performed By: #### 3 016-3, 83458-4 ####[facility] LABCLIA [id number] [place] [address] [place]#### 68629-7 ####[facility] LABCLIA [id number] [address] STATES [facility] LABORATORYCLIA [id number] [place] [address] [place] Cholesterol.total/Ch olesterol in HDL [Mass ratio] 4.97 {ratio} Normal <5.[address] [facility] Comment on above: Order Comment: Speci men Type: BLOOD SPECIMENOrdering Facility: [facility] Address: [address] [place] [address] Performed By: #### 3 016-3, 55692-5 ####[facility] LABCLIA [id number] [place] [address] [place]#### 81785-0 ####[facility] LABCLIA [id number] [address] STATES OF [facility] LABORATORYCLIA [id number] [place] [address] [place] FASTING TIME 12 hrs Normal [facility] Comment on above: Order Comment: Speci men Type: BLOOD SPECIMENOrdering Facility: [facility] Address: [address] [place] [address] Performed By: #### 3 016-3, 52317-7 ####[facility] LABCLIA [id number] [place] [address] [place]#### 41467-3 ####[facility] LABCLIA [id number] [address] LABORATORYCLIA [id number] [place] [address] [place] Triglyceride [Mass/Vol] 197 mg/dL High <[address] [facility] Comment on above: Order Comment: Speci men Type: BLOOD SPECIMENOrdering Facility: [facility] Address: [address] [place] [address] Result Comment: <150 mg/dL, Normal 150-199 mg/dL, Borderline high 200-499 mg/dL, High >499 mg/dL, Very high Performed By: #### 3 016-3, 18368-6 ####[facility] LABCLIA [id number] [place] [address] [place]#### 93022-2 ####[facility] LABCLIA [id number] [address] STATES [facility] LABORATORYCLIA [id number] [place] [address] [place] PSA/PROSTSPECAG SCRNon 02-10 Prostate specific Ag [Mass/Vol] 0.42 ng/mL Normal <2.[address] [facility] Comment on above: Order Comment: Speci men Type: BLOOD SPECIMENOrdering Facility: [facility] Address: [address] [place] [address] Result Comment: Tota l PSA test methodology used is the Electrochemiluminescence Immunoassay by [employer]. Total PSA values by differing methodologies cannot be interchanged. Performed By: #### P SAS1 ####[facility] LABCLIA [id number] [place] [address] [place] TSH SerPl-aCncon 02-10-2022 TSH Qn 1.220 m[IU]/L Normal 0.270-4.[address] [facility] Comment on above: Order Comment: Speci men Type: BLOOD SPECIMENOrdering Facility: [facility] Address: [address] [address] Performed By: #### 3 016-3, 20734-7 ####[facility] LABCLIA [id number] [place] [address] [place]#### 68160-5 ####[facility] LABCLIA [id number] [place] [address] [place] [facility] [place] LABORATORYCLIA [id number] [place] [address] [place] URINALYSIS, REFLEX MICROSCOP ICon 02-10-2022 Bilirubin Ql (U) Negative Normal Negative [facility] Comment on above: Order Comment: Speci men Type: URINE SPECIMENOrdering Facility: [facility] Address: [address] [place] [address] Performed By: #### L [id number] ####[facility] LABCLIA [id number] [place] [address] [place] CALCIUM OXALATE CRYSTALS (UA) Few Abnormal None Seen [facility] Comment on above: Order Comment: Speci men Type: URINE SPECIMENOrdering Facility: [facility] Address: [address] [address] Performed By: #### L [id number] ####[facility] LABCLIA [id number] [place] [address] [place] Clarity (Unsp spec) Clear Normal Clear [facility] Comment on above: Order Comment: Speci men Type: URINE SPECIMENOrdering Facility: [facility] Address: [address] [address] Performed By: #### L [id number] ####[facility] LABCLIA [id number] [place] [address] [place] Color (U) Yellow Normal Yellow [facility] Comment on above: Order Comment: Speci men Type: URINE SPECIMENOrdering Facility: [facility] Address: [address] [place] [address] Performed By: #### L [id number] ####[facility] LABCLIA [id number] [place] [address] [place] Epithelial cells LM.HPF (Urine sed) [#/Area] Few Normal [facility] Comment on above: Order Comment: Speci men Type: URINE SPECIMENOrdering Facility: [facility] Address: [address] [place] [address] Result Comment: Few Performed By: #### L [id number] ####[facility] LABCLIA [id number] [address] [place] Glucose Test strip (U) [Mass/Vol] Negative Normal Negative [facility] Comment on above: Order Comment: Speci men Type: URINE SPECIMENOrdering Facility: [facility] Address: [address] [place] [address] Performed By: #### L [id number] ####[facility] LABCLIA [id number] [place] [address] [place] Hemoglobin Ql (U) Negative Normal Negative [facility] Comment on above: Order Comment: Speci men Type: URINE SPECIMENOrdering Facility: [facility] Address: [address] [place], [place] [address] Performed By: #### L [id number] ####[facility] LABCLIA [id number] [place] [address] [place] Ketones Ql (U) Negative Normal Negative [facility] Comment on above: Order Comment: Speci men Type: URINE SPECIMENOrdering Facility: [facility] Address: [address] [address] Performed By: #### L [id number] ####[facility] LABIA [id number] [place] [address] [place] [facility] Leukocyte esterase Test strip Ql (U) 75 Joyce/mL Abnormal Negative [facility] Comment on above: Order Comment: Speci men Type: URINE SPECIMENOrdering Facility: [facility] Address: [address] [place] [address] Performed By: #### L [id number] ####[facility] LABIA [id number] [address] [place] Nitrite Ql (U) Negative Normal Negative [facility] Comment on above: Order Comment: Speci men Type: URINE SPECIMENOrdering Facility: [facility] Address: [address] [place] [address] Performed By: #### L [id number] ####[facility] LABIA [id number] [place] [address] [place] pH (U) 6.0 [pH] Normal 5.0-8.[address] [facility] Comment on above: Order Comment: Speci men Type: URINE SPECIMENOrdering Facility: [facility] Address: [address] [place] [address] Performed By: #### L [id number] ####[facility] LABIA [id number] [address] [place] Protein (U) [Mass/Vol] 1+ Abnormal Negative [facility] Comment on above: Order Comment: Speci men Type: URINE SPECIMENOrdering Facility: [facility] Address: [address] [place] [address] Performed By: #### L [id number] ####[facility] LABIA [id number] [place] [address] [place] RBC LM.HPF (Urine sed) [#/Area] 0-3 /HPF Normal 0-3 /HPF [facility] Comment on above: Order Comment: Speci men Type: URINE SPECIMENOrdering Facility: [facility] Address: [address] [place] [address] Performed By: #### L [id number] ####[facility] LABIA [id number] [place] [address] [place] Specific gravity (U) [Rel density] 1.037 High 1.005-1.[address] [facility] Comment on above: Order Comment: Speci men Type: URINE SPECIMENOrdering Facility: [facility] Address: [address] [place] [address] Performed By: #### L [id number] ####[facility] LABIA [id number] [place] [address] [place] Urobilinogen Ql (U) 1+ Abnormal Negative [facility] Comment on above: Order Comment: Speci men Type: URINE SPECIMENOrdering Facility: [facility] Address: [address] [place] [address] Performed By: #### L [id number] ####[facility] LABIA [id number] [place] [address] [place] WBC LM.HPF (Urine sed) [#/Area] 0-5 /HPF Normal 0-5 /HPF [facility] Comment on above: Order Comment: Speci men Type: URINE SPECIMENOrdering Facility: [facility] Address: [address] [place] [address] Performed By: #### L [id number] ####[facility] LABIA [id number] [place] [address] [place] Outside Recordson 02-09-2022 Outside Records [id number]#1.00OTGTIFF [facility] Outside Recordson 01-24-2022 Outside Records [id number]#1.00OTGTIFF [facility] Coding Summaryon 01-04-2022 Coding Summary HTMLBase 64 EvlzdissWYj8qFl+PGhlYWQ+PE 9KLJOaX94xtIOvqW8SX1bTCY4Z VLSZFMYTMC4IHZ6tsAX5QLilN6 VybiAv XplkmJKqKK71RGg1FAH0dIzlEX mddN5kmOPfF4w6MkNvVC56mU57 KUlcKICjIxR3KeBbynudtLFe F6nwUaQfmWPqBvr+PHRhYmxlIH azDKOiXRcyWUYjKvLssKwpPN5y Ed4pAZDxRWLzzLmfqIWtJxOp t0pdGUMmLWdyLC6rwOwoJ6UzdC K6VZUsp5u4En07iYP+PHRkIHN0 qZxkCRaaq061MhVvt8xfJOC4 dCQnVEbzUPN7H78hv4B4ZBLrKQ OvSDL3cCO7gZ1pwEojczaeT2Rm mVMaVvX5WIE8sZYifU1xrNys rjpvgP1cBff+C92HPW9XKULEKU 7GDzk8I5FoXtllqEM+RX64LFOz KS64bUXxmFUux2agdXm6ViQe LGHuGRC7dFtiMJhwx2YnDAFsK3 4ovJDie5I1FOZbiVvzyCPoXdEg kHX3aE1nOUdgkuhit9hkmrmx Qtfvw5yqie08rM02X47zHLvpDO MtWJG9LJKjMNHasWvbjo6ppR0y Ii8+ITwpd1oqg9xuiKz3OsWo KNVfhpIksQnrBVW7j3QgRz29Y3 GthAqva3VdGrx1lk76fDUgy1W3 zIZ8BGptPSIgaM3lKIocDuF4 CTXzIvDzkQ90dPItTJunQf1wtU fcmYvtDQ2uXJOtltxbHLXzgO5y BGGghYMhkWlyZM8mSSPelxle l649NwYbLWO7XRAirSSiR6AcjC 0sOtXlSNWjOTWbW7DgaTThATce P868GYigKyG2IRNoryZlR5Zr SVUqoFtbKbD4j8V4Ub3Cx2Ddfn mgSZC6ULgmKYSjEoT3WbPcJeG4 W4MnEuv0JTGfxEroKI9rO3Av JXYrhwghzoyhrCH3KXKlJYZloO 02aEWwQGjxZf6le2A7k363KXTf RWSdvC26Cs0nyJhwTQYvuSOZ hV2xqtkxy7wmoqmjEfFrRBHbAF d3FUk0ATMzrHcuBsJcWLV3HpR3 BJT0nBHvvR9zySaiviryxI6w Oyc+X66eyN9xVRS7ZVX5landPH UhqwUkKE80ZR55O0YtTfzhnMJh bGU+XLMsqmFkkPrgNZ9uEqQt j3dzs1GeQAyhD4LiAXEpBTcmVx c0DDCuOML3qBU1mJ6wENZkDJzg q7Z7gXS3U7DhytBozn4ae3ic YNLsUHvjP49diEZnv8A4ODXhmS A8QMObkXeuZzLlxC08Qmf+PGNv kFyey5ZzRoogt2azf1izmXq0 KtCjENQyvbJykWidQZR8n1ZnIy 66W49xNAjpZXClPSQwCYCpTONo jBgnkg3ciN0cDu5+PGNvbCB3 uZE4yX7xAGWaIcC3EJbzI450Yd UzrQPvIotch1szy1rbbHg1FiTq OFYvpsWdzBbsPMF3k3WpGm29 J62lVBslIXAeRQRmKXRvFKAdrH ixcb8qyW3vAp3+DF6xe3aklr21 kW95mWI+BDQtQBH2hHsdEThb EUSgvQ9xVHawWjX2VYWjQsFwgX 96bXVfNYoiOi9vbNtefKkeSD9x CDBrpqibo560NwSuy7osBQHb pIYvPLyoRXM7V21ri8Y6QUCsNV PvGWE4fIK5tX3tmXbrfsalbGHu tSmtolXcjFbrJAgnEYwpR064 IHRvcDsnPlBhdGllbnQgTmFtZT i5C1EvAyf4LBWqjGgvUP5ddCBl BThiDh9yjNicoYiaJU1mRXHn hnrjl097XbNya0zeAIJftUZrAS wpGQM9N57ec8I2HIGwJOBhZED9 iCJ0mD6qmAzhgxehjYVhiEvf xnTonJigRRigCTlqR145RAPyjV qmVwRlfnCoJKLzhQF2LO08WP36 yVWxz7I4rHU1S9JrXWJyljai xyedsPP5UFYvXPVnyA64Wn1mmK dhXg4cORRpZOF2JHSydRByA1Vf gK0iLyWeMTJqAYMvO5BwiXDr YCtpU535NUvtSyM5FNPrjdMnM0 XcXCXulFeaIyI2k5K9Va0YT5H9 HJ98QE71xGFnl1P9uZF8N3Ke WRPouwbjugaebDQ6KJPmDKNmrL 79Yj3gzBurPc9uRUEyJRM7VWYu qEUuB2ZptR5uRkYvZTLgGSXo Q0SrxIDjABrkP596XExmCvW5SH VuydDvA1TkHEYgoCwnEnB3o8U5 Fp3GBHt2WW75HL90hNLgh9J6 aWH0U9JdCGEzdnjwedptiIE4TP OiRMSwuD62Zf8zgFzeYh9uIZJo SZF1FZSsmOBmH5WmwA7wRaEt JSLcCFTpF5JptSAmCEwmS842DO teTyR1NMKnbfQtK3GuHSPpuTtw DxQ6t6Q5Yv9IRYZoLS45JYG5 rGQ0UI32OF40T2JbIiydfNUjjB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 [facility] Cholesterol in VLDL [Mass/Vol] 28 mg/dL Normal <[address] [facility] Comment on above: Order Comment: Speci men Type: BLOOD SPECIMENOrdering Facility: [facility] Address: [address] [place] [address] Performed By: #### Natalie DENT, 70129-2 ####CRISTOBAL COUNT INCLUDES THE [facility] LABCLIA [id number] [place] [id number] [facility] Cholesterol non HDL [Mass/Vol] 203 mg/dL High <[address] [facility] Comment on above: Order Comment: Speci men Type: BLOOD SPECIMENOrdering Facility: [facility] Address: [address] [place] [address] Result Comment: <130 mg/dL, Optimal 130-159 mg/dL, Near optimal/above optimal 160-189 mg/dL, Borderline high 190-219 mg/dL, High >219 mg/dL, Very high Secondary prevention optimal non HDL Cholesterol levels are recommended to be <100 mg/dL Performed By: #### L FILIPE, 44428-2 ####[place]IST[place] COUNT INCLUDES THE [facility] LABCLIA [id number] [address] Cholesterol.total/Ch olesterol in HDL [Mass ratio] 6.49 {ratio} High <5.[address] [facility] Comment on above: Order Comment: Speci men Type: BLOOD SPECIMENOrdering Facility: [facility] Address: [address] [place] [address] Performed By: #### L FILIPE, 52487-6 ####CRISTOBAL COUNT INCLUDES THE [facility] LABCLIA [id number] [place] [address] [place] FASTING TIME 12. hrs Normal [facility] Comment on above: Order Comment: Speci men Type: BLOOD SPECIMENOrdering Facility: [facility] Address: [address] [place] [address] Performed By: #### L FILIPE, 34961-1 ####CRISTOBAL COUNT INCLUDES THE [facility] LABCLIA [id number] [place] [address] [place] [facility] Triglyceride [Mass/Vol] 140 mg/dL Normal <[address] [facility] Comment on above: Order Comment: Speci men Type: BLOOD SPECIMENOrdering Facility: [facility] Address: [address] [place] [address] Result Comment: <150 mg/dL, Normal 150-199 mg/dL, Borderline high 200-499 mg/dL, High >499 mg/dL, Very high Performed By: #### L IPB, 17846-8 ####AMHKHRIST COUNT INCLUDES THE [facility] LABCLIA [id number] [place] [address] [place] PSA/PROSTSPECAG SCRNon 07-29 Prostate specific Ag [Mass/Vol] 0.41 ng/mL Normal <2.[address] [facility] Comment on above: Order Comment: Speci men Type: BLOOD SPECIMENOrdering Facility: [facility] Address: [address] [place] [address] Result Comment: Tota l PSA test methodology used is the Electrochemiluminescence Immunoassay by [employer]. Total PSA values by differing methodologies cannot be interchanged. Performed By: #### P SAS1 ####[facility] LABCLIA [id number] [address] TSH SerPl-aCncon 07-29-2021 TSH Qn 4.060 m[IU]/L Normal 0.270-4.[address] [facility] Comment on above: Order Comment: Speci men Type: BLOOD SPECIMENOrdering Facility: [facility] Address: [address] [place] [address] Performed By: #### 3 016-3 ####[facility] LABCLIA [id number] [address] [place] URINALYSIS, REFLEX MICROSCOP ICon 07-29-2021 Bilirubin Ql (U) Negative Normal Negative [facility] Comment on above: Order Comment: Speci men Type: URINE SPECIMEN Ordering Facility: [facility] Address: [address] [place] [address] Performed By: #### L [id number] #### AMHERST COUNT INCLUDES THE [facility] LAB CLIA [id number] [facility] [address] [place] Clarity (Unsp spec) Clear Normal Clear [facility] Comment on above: Order Comment: Speci men Type: URINE SPECIMEN Ordering Facility: [facility] Address: [address] [place] [address] Performed By: #### L [id number] #### [facility]ENTERERST COUNT INCLUDES THE [facility] LAB CLIA [id number] [address] [place] [address] [place] Color (U) Yellow Normal Yellow [facility] Comment on above: Order Comment: Speci men Type: URINE SPECIMEN Ordering Facility: [facility] Address: [address] [place] [address] Performed By: #### L [id number] #### [facility]em COUNT INCLUDES THE [facility] LAB CLIA [id number] [address] [place] [address] [place] Glucose Test strip (U) [Mass/Vol] Negative Normal Negative [facility] Comment on above: Order Comment: Speci men Type: URINE SPECIMEN Ordering Facility: [facility] Address: [address] [place] [address] Performed By: #### L [id number] #### [facility] COUNT INCLUDES THE [facility] LAB CLIA [id number] [address] [place] [address] [place] Hemoglobin Ql (U) Negative Normal Negative [facility] Comment on above: Order Comment: Speci men Type: URINE SPECIMEN Ordering Facility: [facility] Address: [address] [place] [address] Performed By: #### L [id number] #### [facility] COUNT INCLUDES THE [facility] LAB CLIA [id number] [address] [place] [address] [place] Ketones Ql (U) Negative Normal Negative [facility] Comment on above: Order Comment: Speci men Type: URINE SPECIMEN Ordering Facility: [facility] Address: [address] [place] [address] Performed By: #### L [id number] #### [facility] COUNT INCLUDES THE [facility] LAB CLIA [id number] [address] [place] [address] [place] Leukocyte esterase Test strip Ql (U) Negative Normal Negative [facility] Comment on above: Order Comment: Speci men Type: URINE SPECIMEN Ordering Facility: [facility] Address: [address] [place] [address] Performed By: #### L [id number] #### [facility] COUNT INCLUDES THE [facility] LAB CLIA [id number] [address] [place] [address] [place] Nitrite Ql (U) Negative Normal Negative [facility] Comment on above: Order Comment: Speci men Type: URINE SPECIMEN Ordering Facility: [facility] Address: [address] [place] [address] Performed By: #### L [id number] #### [facility] COUNT INCLUDES THE [facility] CLIA [id number] [address] [place] [address] [place] pH (U) 5.5 [pH] Normal 5.0-8.[address] [facility] Comment on above: Order Comment: Speci men Type: URINE SPECIMEN Ordering Facility: [facility] Address: [address] [place] [address] Performed By: #### L [id number] #### [facility] COUNT INCLUDES THE [facility] CLIA [id number] [address] [place] [address] [place] Protein (U) [Mass/Vol] Negative Normal Negative [facility] Comment on above: Order Comment: Speci men Type: URINE SPECIMEN Ordering Facility: [facility] Address: [address] [place] [address] Performed By: #### L [id number] #### [facility] COUNT INCLUDES THE [facility] CLIA [id number] [address] [place] [address] [place] Specific gravity (U) [Rel density] 1.025 Normal 1.005-1.[address] [facility] Comment on above: Order Comment: Speci men Type: URINE SPECIMEN Ordering Facility: [facility] Address: [address] [place] [address] Performed By: #### L [id number] #### [facility] COUNT INCLUDES THE [facility] CLIA [id number] [address] [place] [address] Urobilinogen Ql (U) 0.2 EU/dL Normal 0.2-1.0 EU/dL [facility] Comment on above: Order Comment: Speci men Type: URINE SPECIMEN Ordering Facility: [facility] Address: [address] [place] [address] Performed By: #### L [id number] #### AMHERST COUNT INCLUDES THE [facility] LAB CLIA [id number] [address] [place] [address] OF [facility] VITAMIN D 25 HYDROXYon 07-29 25-hydroxyvitamin D3 [Mass/Vol] 29.1 ng/mL Low 31.0-80.[address] [facility] Comment on above: Order Comment: Speci men Type: BLOOD SPECIMENOrdering Facility: [facility] Address: [address] [place] [address] Result Comment: Clas sification of 25 [place] Vitamin D status: Deficiency/Insufficiency: < or = 30 ng/ml. Sufficiency/Optimal Levels: 31-80 ng/mL Toxicity: > 100 ng/mL. Test performed by chemiluminescent immunoassay. Performed By: #### V ITD ####[facility] LABCLIA [id number] [address] [place] HISTORY PHYSICALon HISTORY PHYSICAL HNO ID: [id number] Author: Prisca Van PA-C Service: ? Author Type: Physician Emergency Medical Services Coordinator Type: HANDP Filed: 07/26/2021 1:52 PM Note Text: PREANESTHESIA CONSULT CLINIC This is a virtual visit. It required patient-provider interaction for the medical decision making as documented below. Patient has been identified by name and date of : Yes Reason for call: PACC visit Accompanied by: Self Patient name: Nehal Baig Scheduled Surgery: colonoscopy 07/31/2021 at [place] CHIEF COMPLAINT: Patient presents with: Outpatient Colonoscopy [...] fevers. 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 No neurological symptoms or problems. Respiratory: No history of current cough or dyspnea, or pneumonia in the past 6 weeks. +asthma-uses Flovent daily, albuterol 3-5 times/week +JACOBY- BiPAP nightly +lung nodules Cardiovascular: No history of angina, CHF, ND, cardiac surgery or stents. Denies rest pain, [...] (more content not included)... Normal [facility] CNOVon 07-25-2021 CNOV Office Visit ([facility] ) -- NEHAL BAIG ([id number]) 1970 M Date Time Provider Department 4/26/22 9:20 AM SALOME AGUILLON [facility] During your visit today, we recorded the following information about you: Pulse Blood pressure Weight Height 88/minute 136/78 182.3 kg 1.854 m Salome Aguillon APRN.CNP 07/25/2021 5:32 PM Signed This note was created using [employer]. Subjective Nehal Baig is a 50 year [...] further at follow-up Salome Aguillon APRN.LEODAN Aguillon APRN.JANITORIAL SUPERVISOR 07/25/2021 9:43 AM Signed Bowel Preparation Instructions for: Golytely, Nulytely, Trilyte or Coly (more content not included)... Normal [facility] 07-25-2021 LEODANN Telephone ([facility]) -- NEHAL BAIG ([id number]) 1970 Date Time Provider Department 07/25/21 SALOME AGUILLON [facility] During your visit today, we recorded the following information about you: Beatriz Cowan 07/25/2021 11:22 AM Signed [facility] states the Golytely is on backorder. They have the Newlytely in stock. Is it OK to substitute? Please advise. [phone]. Beatriz Cowan July 25, 2021 11:22 AM Salome Aguillon APRN.[facility] 07/25/2021 12:05 PM Signed Called Anthony -pt [...] SALOME AGUILLON on 07/25/[address] [facility] CT CHEST WO IVCONon 02-14-20 21 Radiology Result ACTIONABLE Abnormal [facility] Basic Metab w/rfx MGon 08-02 (cont.) Normal [facility] Comment on above: Result Comment: Aver age GFR for 40-49 years old: 99 mL/min/1.73sq m Chronic Kidney Disease: <60 mL/min/1.73sq m Kidney failure: <15 mL/min/1.73sq m eGFR calculated using average adult body mass. Additional eGFR calculator available at: http://www.[employer]/multiple_crcl_2012.htm Performed By: #### C BC, BMPX ####[facility] [address] [place], [place] [address])[phone] Director: Nate Stafford MD Anion gap [Moles/Vol] 11 mmol/L Normal 9-[address] [facility] Comment on above: Performed By: #### C BC, BMPX ####[facility] [address] [place], [place] [phone] Director: Nate Stafford MD Calcium [Mass/Vol] 8.5 mg/dL Low 8.6-10.[address] [facility] Comment on above: Performed By: #### C BC, BMPX ####[facility] [address] [place], [place] [id number])[phone] Director: Nate Stafford MD Chloride [Moles/Vol] 101 mmol/L Normal 98-107 [facility] Comment on above: Performed By: #### C BC, BMPX ####[facility] [address] [place], [place] [id number])[phone] Director: Nate Stafford MD CO2 [Moles/Vol] 23 mmol/L Normal 20-[address] [facility] Comment on above: Performed By: #### C BC, BMPX ####[facility] [address] [place], [place] [phone])[phone] Director: Nate Stafford MD Creatinine [Mass/Vol] 0.62 mg/dL Low 0.70-1.[address] [facility] Comment on above: Performed By: #### C BC, BMPX ####[facility] [address] [place], [place] [phone] Director: Nate Stafford MD GFR, Amer >60 Normal >60 [facility] Comment on above: Performed By: #### C BC, BMPX ####[facility] [address] [place], [place] [phone] Director: Nate Stafford MD GFR,non Amer >60 Normal >60 [facility] Comment on above: Performed By: #### C BC, BMPX ####[facility] [address] [place], [place] [phone] Director: Nate Stafford MD Glucose [Mass/Vol] 120 mg/dL High 70-[address] [facility] Comment on above: Performed By: #### C BC, BMPX ####[facility] [address] [place], [place] [phone] Director: Nate Stafford MD Potassium [Moles/Vol] 4.3 mmol/L Normal 3.7-5.[address] [facility] Comment on above: Performed By: #### C BC, BMPX ####[facility] [address] [place], [place] [id number])[phone] Director: Nate Stafford MD Sodium [Moles/Vol] 135 mmol/L Normal 135-[address] [facility] Comment on above: Performed By: #### C BC, BMPX ####[facility] [address] [place], [place] [phone] Director: Nate Stafford MD Urea nitrogen [Mass/Vol] 14 mg/dL Normal 6-[address] [facility] Comment on above: Performed By: #### C BC, BMPX ####[facility] [address] [place], [place] [phone] Director: Nate Stafford MD BUN/CRE Ratio NOT REPORTED Normal 9- [facility] Comment on above: Performed By: #### C BC, BMPX ####[facility] [address] [place], [place] [id number] lab Director: Nate Stafford MD Staging: NOT REPORTED Normal [facility] Comment on above: Performed By: #### C BC, BMPX ####[facility] [address] [place], [place] [id number] lab Director: Nate Stafford MD Basic Metabolic Panel w/ Ref johnny to MGOrdered By: Halina Pathak on 08-02-2020 Anion gap [Moles/Vol] 11 mmol/L 9 - 17 mmol/L [employer] Phone: Calcium [Mass/Vol] 8.5 mg/dL Low 8.6 - 10. 4 mg/dL [employer] Phone: Chloride [Moles/Vol] 101 mmol/L 98 - 10 7 mmol/L [employer] Phone: CO2 [Moles/Vol] 23 mmol/L 20 - 31 mmol/L [employer] Phone: Creatinine [Mass/Vol] 0.62 mg/dL Low 0.70 - 1.20 mg/dL [facility] Phone: GFR >60 >60 mL/min [employer] Phone: GFR Non- >60 >60 mL/min [facility] Phone: GFR/1.73 sq M.predicted MDRD (S/P/Bld) [Vol rate/Area] [employer] Phone: Comment on above: Average GFR for 40-4 9 years old: 99 mL/min/1.73sq m Chronic Kidney Disease: <60 mL/min/1.73sq m Kidney failure: <15 mL/min/1.73sq m eGFR calculated using average adult body mass. Additional eGFR calculator available at: http://www.[employer].Pony Zero/multiple_crcl_2012.htm GFR/1.73 sq M.predicted MDRD (S/P/Bld) [Vol rate/Area] NOT REPORTED [employer] Phone: Glucose [Mass/Vol] 120 mg/dL High 70 - 99 mg/dL [employer] Phone: Interpretation and review of laboratory results Abnormal [employer] Phone: Potassium [Moles/Vol] 4.3 mmol/L 3.7 - 5.3 mmol/L [facility] Phone: Sodium [Moles/Vol] 135 mmol/L 135 - 144 mmol/L [facility] Phone: Urea nitrogen (BldV) [Mass/Vol] 14 mg/dL 6 - 20 mg/dL [facility] Phone: Urea nitrogen/Creatinine (Bld) [Mass ratio] NOT REPORTED [facility] Phone: CBCon 08-02-2020 Erythrocyte distribution width (RBC) [Ratio] 13.0 % Normal 11.8-14.[address] [facility] Comment on above: Performed By: #### C BC, BMPX ####[facility] [address] [place], [place] [phone] Lab Director: Nate Stafford MD Hematocrit (Bld) [Volume fraction] 41.8 % Normal 40.7-50.[address] [facility] Comment on above: Performed By: #### C BC, BMPX ####[facility] [address] [place], [place] [address]2008 Lab Director: Nate Stafford MD Hemoglobin (Bld) [Mass/Vol] 13.8 g/dL Normal 13.0-17.[address] [facility] Comment on above: Performed By: #### C BC, BMPX ####[facility] [address]bvgtf4[address] [place], [place] [phone] Director: Nate Stafford MD MCH (RBC) [Entitic mass] 29.3 pg Normal 25.2-33.[address] [facility] Comment on above: Performed By: #### C BC, BMPX ####[facility] [address] [place] [address] [phone] Director: Nate Stafford MD MCHC (RBC) [Mass/Vol] 33.0 g/dL Normal 28.4-34.[address] [facility] Comment on above: Performed By: #### C BC, BMPX ####[address] [phone] Director: Nate Stafford MD MCV (RBC) [Entitic vol] 88.7 fL Normal 82.6-102.[address] [facility] Comment on above: Performed By: #### C BC, BMPX ####[address] [phone] Director: Nate Stafford MD NRBC Automated 0.0 per 100 WBC Normal 0[address] [facility] Comment on above: Performed By: #### C BC, BMPX ####[address] [phone] Director: Nate Stafford MD Platelet mean volume (Bld) [Entitic vol] 10.9 fL Normal 8.1-13.[address] [facility] Comment on above: Performed By: #### C BC, BMPX ####[facility] [address] [place] [address] [phone] Director: Nate Stafford MD Platelets (Bld) [#/Vol] 221 10*3/uL Normal 138-[address] [facility] Comment on above: Performed By: #### C BC, BMPX ####[facility] [address] [place] [address] [phone] Director: Nate Stafford MD RBC (Bld) [#/Vol] 4.71 10*6/uL Normal 4.21-5.[address] [facility] Comment on above: Performed By: #### C AXEL, BMPX ####[facility] [address] [place], [place] [phone] lab Director: Nate Stafford MD WBC (Bld) [#/Vol] 10.6 10*3/uL Normal 3.5-11.[address] [facility] Comment on above: Performed By: #### C AXEL, BMPX ####[facility] [address] [place], [place] [phone] lab Director: Nate Stafford MD CBCOrdered By: Halina Pathak on 08-02-2020 Hematocrit (Bld) [Volume fraction] 41.8 % 40.7 - 50.3 % [facility] Phone: Hemoglobin.gastroint estinal spec 1 Ql (Stl) 13.8 g/dL 13.0 - 17.0 g/dL [facility] Phone: MCH (RBC) [Entitic mass] 29.3 pg 25.2 - 33.5 pg [facility] Phone: MCHC (RBC) [Mass/Vol] 33.0 g/dL 28.4 - 34.8 g/dL [facility] Phone: MCV (RBC) [Entitic vol] 88.7 fL 82.6 - 102.9 fL [facility] Phone: NRBC Automated 0.0 0.0 per 100 WBC [facility] Phone: Platelet distribution width (Bld) [Ratio] 13.0 % 11.8 - 14.4 % [facility] Phone: Platelet mean volume (Bld) [Entitic vol] 10.9 fL 8.1 - 13.5 fL [facility] Phone: Platelets (Bld) [#/Vol] 221 10*3/uL [facility] [employer] Phone: RBC (Bld) [#/Vol] 4.71 10*6/uL 4.21 - 5.77 m/uL [facility] Phone: WBC (Bld) [#/Vol] 10.6 10*3/uL [facility] Phone: Trauma Profileon 08-02-2020 (cont.) Normal [facility] Comment on above: Result Comment: Aver age GFR for 40-49 years old: 99 mL/min/1.73sq m Chronic Kidney Disease: <60 mL/min/1.73sq m Kidney failure: <15 mL/min/1.73sq m eGFR calculated using average adult body mass. Additional eGFR calculator available at: http://www.Twice/multiple_crcl_2011.htm Performed By: #### E RTPF, TROPI ####[facility] [address]mfs[address] [place] [address] Lab Director: Nate Stafford MD Anion gap [Moles/Vol] 10 mmol/L Normal 9-[address] [facility] Comment on above: Performed By: #### E RTPF, TROPI ####[facility] [address]kri[address] [place] [address] Lab Director: Nate Stafford MD Chloride [Moles/Vol] 100 mmol/L Normal 98-107 [facility] Comment on above: Performed By: #### E RTPF, TROPI ####[facility] [address] [place] [address] Lab Director: Nate Stafford MD CO2 [Moles/Vol] 24 mmol/L Normal 20-[address] [facility] Comment on above: Performed By: #### E RTPF, TROPI ####[facility] [address] [place] [address] Lab Director: Nate Stafford MD Creatinine [Mass/Vol] 0.71 mg/dL Normal 0.70-1.[address] [facility] Comment on above: Performed By: #### E RTPF, TROPI ####[facility] [address] [place] [address] Lab Director: Nate Stafford MD Ethanol [Mass/Vol] mg/dL Normal <[address] [facility] Comment on above: Performed By: #### E RTPF, TROPI ####[facility] [address] [place] [address] Lab Director: Nate Stafford MD Ethanol percent <0.010 Normal <0.[address] [facility] Comment on above: Performed By: #### E RTPF, TROPI ####[facility] [address] [place] [address] Lab Director: Nate Stafford MD GFR, Amer >60 Normal >60 [facility] Comment on above: Performed By: #### E RTPF, TROPI ####[facility] [address] [place] [address] Lab Director: Nate Stafford MD GFR,non Amer >60 Normal >60 [facility] Comment on above: Performed By: #### E RTPF, TROPI ####[facility] [address]gandmkbu0387 [place] [address] Lab Director: Nate Stafford MD Glucose [Mass/Vol] 109 mg/dL High 70-[address] [facility] Comment on above: Performed By: #### E RTPF, TROPI ####[facility] [address] [place] [address] Lab Director: Nate Stafford MD Potassium [Moles/Vol] 4.2 mmol/L Normal 3.7-5.[address] [facility] Comment on above: Performed By: #### E RTPF, TROPI ####[facility] [address] [place] [address] Lab Director: Nate Stafford MD Sodium [Moles/Vol] 134 mmol/L Low 135-[address] [facility] Comment on above: Performed By: #### E RTPF, TROPI ####[facility] [address] [place] [address] Lab Director: Nate Stafford MD Urea nitrogen [Mass/Vol] 15 mg/dL Normal 6-[address] [facility] Comment on above: Performed By: #### E RTBERNIE TROPI ####[facility] [address] [place] [address] Lab Director: Nate Stafford MD Troponinon 08-02-2020 Troponin, High Sens 6 ng/L Normal 0-[address] [facility] Comment on above: Result Comment: High Sensitivity Troponin values cannot be compared with other Troponin methodologies. Patients with high levels of Biotin oral intake (i.e >5mg/day) may have falsely decreased Troponin levels. Samples collected within 8 hours of biotin intake may require additional information for diagnosis. Performed By: #### E RTBERNIE TROPI ####[facility] [address] [place] [address] lab Director: Nate Stafford MD Type + Screenon 08-02-2020 Type + Screen Sample Expiration 08/04/2020,2359 Arm Band Number [id number] ABO/Rh(D) A NEGATIVE Antibody Screen NEGATIVE Normal [facility] Comment on above: Performed By: #### T YS ####[facility] [address] [place] [address] Lab Director: Nate Stafford MD CT CERVICAL SPINE [...] Johnny Smalls MD 08/01/[address] [facility] CT CERVICAL SPINE WO CONTRAS TOrdered By: Ronnie Lund on 08-01-2020 C6-7 cervical spondy losis and degenerative disc disease. Evidence of paracervical spasm. No acute bony abnormalities are noted [employer] Work Phone: EXAMINATION: CT OF T HE [...] intact. The visualized lung apices are clear. [facility] Phone: Francisco, Mhpn Incoming R adiant Results From [employer] - 08/01/2020 7:04 PM EDT EXAMINATION: CT [...] spasm. No acute bony abnormalities are noted [facility] Phone: CT CHEST ABDOMEN PELVIS W CO [...] Elizabeth Shoemaker MD 08/01/[address] [facility] CT CHEST ABDOMEN PELVIS W CO [...] to Lung-RADS guidelines. Reference: Radiology. 2017; 284(1):228-43. [facility] Phone: EXAMINATION: CT OF T HE CHEST, [...] hernia. Bones/Soft Tissues: No acute osseous abnormality. [employer] Work Phone: Francisco, Mhpn Incoming R adiant Results From [employer] - 08/01/2020 7:19 PM EDT EXAMINATION: CT [...] to Lung-RADS guidelines. Reference: Radiology. 2017; 284(1):228-43. [facility] Phone: CT HEAD WO CONTRASTon 2020 CT [...] Jarek Fernández MD 08/01/[address] [facility] CT Head WO ContrastOrdered B y: Ronnie Lund on 08-01-2020 1. No acute intracra nial abnormality. [facility] Phone: EXAMINATION: CT OF T HE HEAD [...] clear. SOFT TISSUES/SKULL: The calvarium is intact. [facility] Phone: Francisco, Mhpn Incoming R adiant Results From [employer] - 08/01/2020 7:01 PM EDT EXAMINATION: CT [...] intact. IMPRESSION: 1. No acute intracranial abnormality. [facility] Phone: CT LUMBAR SPINE TRAUMA RECON STRUCTIONon [...] Johnny Smalls MD 08/01/[address] [facility] CT THORACIC SPINE TRAUMA REC ONSTRUCTIONon [...] Johnny Smalls MD 08/01/[address] Final result Normal [facility] Drug Scr, Abuse, Uron 2020 Amphetamine(s),Ur Negative Normal NEG [facility] Comment on above: Result Comment: (Positive cutoff 1000 ng/mL) Performed By: #### U AMIC, LOUIS #### [facility] [address] [place] [address] Continuous Still Operator: Nate Stafford MD Barbiturate(s),Ur Negative Normal NEG [facility] Comment on above: Result Comment: (Positive cutoff 200 ng/mL) Performed By: #### U AMIC, LOUIS #### [facility] [address] [place] [address] Continuous Still Operator: Nate Stafford MD Benzodiazepine(s) Negative Normal NEG [facility] Comment on above: Result Comment: (Positive cutoff 200 ng/mL) Performed By: #### U AMIC, LOUIS #### [facility] [address] [place] [address] Continuous Still Operator: Nate Stafford MD Cannabinoid(s),Ur Negative Normal NEG [facility] Comment on above: Result Comment: (Positive cutoff 50 ng/mL) Performed By: #### U AMIC, LOUIS #### [facility] [address] [place] [address] Continuous Still Operator: Nate Stafford MD Cocaine Metabolite Negative Normal NEG [facility] Comment on above: Result Comment: (Positive cutoff 300 ng/mL) Performed By: #### U AMIC, LOUIS #### [facility] [address] [place] [address] Continuous Still Operator: Nate Stafford MD Interpretive Info Assay provides medic al screening only. The absence of expected drug(s) and/or Normal [facility] Comment on above: Result Comment: meta bolite(s) may indicate diluted or adulterated urine, limitations of testing or timing of collection. Testing for legal purposes should be confirmed by another method. To request confirmation of test result, please call the lab within 7 days of sample submission. Performed By: #### U AMIC, LOUIS #### [employer] [address] [place] [address] Continuous Still Operator: Nate Stafford MD Methadone Ql (U) Negative Normal NEG [facility] Comment on above: Result Comment: (Positive cutoff 300 ng/mL)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 Family Practice 11/23/19 Coin Machine Service Repairer Relationship Specialty Start Date End Date Salome Aguillon, PHOTOGRAPHY INTERN.JANITORIAL SUPERVISOR [address] [place] [address] PCP - General Family Practice 11/23/19 Coin Machine Service Repairer Relationship Specialty Start Date End Date Salome Aguillon, PHOTOGRAPHY INTERN.JANITORIAL SUPERVISOR [address] [place] [address] PCP - General Family Practice 11/23/19 Coin Machine Service Repairer Relationship Specialty Start Date End Date Salome Aguillon, PHOTOGRAPHY INTERN.JANITORIAL SUPERVISOR [address] [place] [address] PCP - General Family Practice 11/23/19 Coin Machine Service Repairer Relationship Specialty Start Date End Date Salome Aguillon, PHOTOGRAPHY INTERN.JANITORIAL SUPERVISOR [address] [place] [address] PCP - General Family Practice 11/23/19 Coin Machine Service Repairer Relationship Specialty Start Date End Date Salome Aguillon, PHOTOGRAPHY INTERN.JANITORIAL SUPERVISOR [address] [place] [address] PCP - General Family Practice 11/23/19 Coin Machine Service Repairer Relationship Specialty Start Date End Date Salome Aguillon, PHOTOGRAPHY INTERN.JANITORIAL SUPERVISOR [address] [place] [address] PCP - General Family Practice 11/23/19 Coin Machine Service Repairer Relationship Specialty Start Date End Date Salome Aguillon, PHOTOGRAPHY INTERN.JANITORIAL SUPERVISOR [address] [place] [address] PCP - General Family Practice 11/23/19 Coin Machine Service Repairer Relationship Specialty Start Date End Date Salome Aguillon, PHOTOGRAPHY INTERN.JANITORIAL SUPERVISOR [address] [place] [address] PCP - General Family Practice 11/23/19 Coin Machine Service Repairer Relationship Specialty Start Date End Date Salome Aguillon, PHOTOGRAPHY INTERN.JANITORIAL SUPERVISOR [address] [place] [address] PCP - General Family Practice 11/23/19 Coin Machine Service Repairer Relationship Specialty Start Date End Date Salome Aguillon, PHOTOGRAPHY INTERN.JANITORIAL SUPERVISOR [address] [place] [address] PCP - General Family Practice 11/23/19 Coin Machine Service Repairer Relationship Specialty Start Date End Date Salome Aguillon, PHOTOGRAPHY INTERN.JANITORIAL SUPERVISOR [address] [place] [address] PCP - General Family Practice 11/23/19 Coin Machine Service Repairer Relationship Specialty Start Date End Date [facility] Salome, PHOTOGRAPHY INTERN.JANITORIAL SUPERVISOR [address] [place] [address] PCP - General Family Practice 11/23/19 Coin Machine Service Repairer Relationship Specialty Start Date End Date [facility] Salome, PHOTOGRAPHY INTERN.JANITORIAL SUPERVISOR [address] [place] [address] PCP - General Family Medicine 11/23/19 Coin Machine Service Repairer Relationship Specialty Start Date End Date [facility] Salome, PHOTOGRAPHY INTERN.JANITORIAL SUPERVISOR [address] [place] [address] PCP - General Family Medicine 11/23/19 Coin Machine Service Repairer Relationship Specialty Start Date End Date [facility] Salome, PHOTOGRAPHY INTERN.JANITORIAL SUPERVISOR [address] [place] [address] PCP - General Family Medicine 11/23/19 Coin Machine Service Repairer Relationship Specialty Start Date End Date [facility] Salome, PHOTOGRAPHY INTERN.JANITORIAL SUPERVISOR [address] [place] [address] PCP - General Family Medicine 11/23/19 Coin Machine Service Repairer Relationship Specialty Start Date End Date [facility] Salome, PHOTOGRAPHY INTERN.JANITORIAL SUPERVISOR [address] [place] [address] PCP - General Family Medicine 11/23/19 Coin Machine Service Repairer Relationship Specialty Start Date End Date [facility] BransonSalome, PHOTOGRAPHY INTERN.JANITORIAL SUPERVISOR [address] [place] [address] PCP - General Family Medicine 11/23/19 Coin Machine Service Repairer Relationship Specialty Start Date End Date [facility] Salome, PHOTOGRAPHY INTERN.JANITORIAL SUPERVISOR [address] [place] [address] PCP - General Family Medicine 11/23/19 Coin Machine Service Repairer Relationship Specialty Start Date End Date [facility] BransonSalome, PHOTOGRAPHY INTERN.JANITORIAL SUPERVISOR [address] [place] [address] PCP - General Family Medicine 11/23/19 Coin Machine Service Repairer Relationship Specialty Start Date End Date Salome, PHOTOGRAPHY INTERN.JANITORIAL SUPERVISOR [address] [place] [address] PCP - General Family Medicine 11/23/19 Coin Machine Service Repairer Relationship Specialty Start Date End Date [facility] Salome, PHOTOGRAPHY INTERN.JANITORIAL SUPERVISOR [address] [place] [address] PCP - General Family Medicine 11/23/19 Coin Machine Service Repairer Relationship Specialty Start Date End Date [facility] Salome, PHOTOGRAPHY INTERN.JANITORIAL SUPERVISOR [address] [facility] [place] [address] PCP - General Family Medicine 11/23/19 Coin Machine Service Repairer Relationship Specialty Start Date End Date [facility] Salome, PHOTOGRAPHY INTERN.JANITORIAL SUPERVISOR [address] [place] [address] PCP - General Family Medicine 11/23/19 Team Status: Active Member Role Status Dates Vonnie Guerrero NP-C Primary Care Provider Active Team Status: Inactive Member Role Status Dates Vonnie Guerrero NP-C Primary Care Provider Active HAIDER Beard Attending Provider Active Team Status: Inactive Member Role Status Dates Salome Aguillon NP-C Primary Care Provider Acti tyler Yi NP-C Attending Provider Active Team Status: Inactive Member Role Status Dates Salome Aguillon NP-C Primary Care Provider Acti HAIDER Sapp Attending Provider Active Team Status: Inactive Member Role Status Dates Huan Cowan DO Attending Provider Active Team Status: Active Member Role Status Dates Vonnie Guerrero NP-C Primary Care Provider Active HAIDER Beard Attending [...] BE BASED ON THE PRIMARY CLINICAL RECORDS. [facility]. provides no warranty or guarantee of the accuracy or completeness of information in this document.
--- OUTSIDE RECORDS SUMMARY | 2023-06-03 09:52 | XMS_ITS | CCD ---
Author Name Unknown Address [address] [place] [address] Organization [facility] Care Team Providers Care Hob Mill Operator Name Role Phone Pal FRENCH FOLDER - [facility] Primary Care Provide r [facility] Primary Care Unavailable JUANITA CARMONA Consulting Unavailable JUANITA CARMONA Attending Unavailable JUANITA CARMONA Admitting Unavailable [facility] FRENCH FOLDER.[facility] Primary Care Provider [facility] Primary Care Physician UnavailNicolasa Perry Unavailable Unavailable [facility] Primary Care Physician [facility] FRENCH FOLDER.[facility] Primary Care Provider [facility] FRENCH FOLDER.[facility] Primary Care Provider [facility] FRENCH FOLDER.[facility] Primary Care Provider DR KINGSLEY HERRERA V Consulting Unavailable YRN, DR ARROYO Attending Unavailable YRN, DR ARROYO Admitting Unavailable TOSHA, DR JAYY Marte Consulting Unavailable YRN, DR ARROYO Consulting Unavailable [facility] Referring Unavailable [facility] Primary Care Unavailable ANH MENA Attending Unavailab ANH Morales Referring Unavailab le [facility] Primary Care Unavailable [facility] Primary Care Unavailable [facility] Referring Unavailable [facility] Primary Care Unavailable [facility] Attending Unavailable [facility] Referring Unavailable [facility] Primary Care Unavailable [facility] Primary Care Unavailable TREY SHARMA Attending Unavailable TREY SHARMA Referring Unavailable [facility] Attending Unavailable [facility] Primary Care Unavailable [facility] Primary Care Unavailable [facility] Referring Unavailable [facility] Primary Care Unavailable [facility] Attending Unavailable [facility] Referring Unavailable [facility] Primary Care Unavailable [facility] Referring Unavailable [facility] Primary Care Unavailable [facility] Attending Unavailable [facility] Primary Care Unavailable JAYY PATEL Referring Unavailable [facility] Primary Care Unavailable [facility] Attending Unavailable [facility] Primary Care Unavailable ANH MENA Attending Unavailab le [facility] [place] Referring Unavailable ANH MENA Referring Unavailab TARSHA Willson Attending Unavailable [facility] Primary Care Unavailable [facility] Primary Care Unavailable [facility] Referring Unavailable [facility] Primary Care Unavailable [facility] Referring Unavailable BledsoeRishiJoel Natalie Attending Unavailable Bledsoe, Joel L Admitting Unavailable [facility] Primary Care Unavailable [facility] Primary Care Unavailable BledsoeJoel L Attending Unavailable ELNEA ADAMS Attending Unavailable ELENA ADAMS Admitting Unavailable [facility] Primary Care Unavailable Joel Bledsoe L Attending Unavailable [facility] Primary Care Unavailable Bledsoe, Joel L Admitting Unavailable Joel Bledsoe L Attending Unavailable [facility] Unavailable BledsoeJoel Attending Unavailable Bledsoe, Joel L Admitting Unavailable [facility] Primary Care Unavailable Kelly Yi Unavailable Pal, ISABELLE-C [facility] Primary Care Provider HAIDER Yi Attending Provider [phone] HAIDER Quezada Attending Provider HAIDER Guerrero Primary Care Provider [phone] Siri Quezada Unavailable Vonnie Guerrero Primary Care Physician Kandis Amado Unavailable Pal, GENETIC PHYSICIAN-C [facility] Primary Care Provider HAIDER Yi Attending Provider [phone] HAIDER Quezada Attending Provider HAIDER Guerrero Primary Care Provider [phone] DO Huan Cowan Attending Provider Katya Harrington Unavailable Unavailable Siri Quezada Admitting Unavailable Siri Quezada Attending Unavailable [facility] Primary Care Unavailabl e Siri Quezada Admitting Unavailable Siri Quezada Attending Unavailable Vonnie Guerrero Primary Care Unavailable Siri Quezada Admitting Unavailable Siri Quezada Attending Unavailable Yolanda, Vonnie Moran Primary Care Unavailable Yung, Huan A Admitting Unavailable Brown, Huan A Attending Unavailable Salome Aguillon [facility] Care Unavailabl e Kassidy, Kelly Admitting [...] Unavailable Brown, Huan A Admitting Unavailable Yolanda, CREATIVE PERFUMER Vonnie L Attending Unavailable Brown, Huan A Admitting Unavailable Brown, Huan A Attending Unavailable Brown, Huan A Attending Unavailable Brown, Huan A Admitting Unavailable Allergies Allergy Classification Reported Allergen(s) Allergy Type Date of Onset Reaction(s) Facility (1 source) No Known Medication Allergies; Translations: [No Known Medication Allergies] Propensity to adverse reactions to drug (disorder) [facility] Repository Medications Current Medications Medication Drug [...] Start: 03-01-2019 take 2 tablets by mo [facility] every six hours as needed [...] day(s), # 9 cap(s), Refills(s) 0, Pharmacy: [facility], 185.5, cm, 08/08/21 12:06:00 EDT, Height/Length [...] constipation, # 20 cap(s), Refills(s) 0, Pharmacy: [facility], 185.5, cm, 08/08/21 12:06:00 EDT, Height/Length [...] milk, # 60 tab(s), Refills(s) 0, Pharmacy: [facility], 185.5, cm, 08/08/21 12:06:00 EDT, Height/Length [...] Daily, # 90 tab(s), Refills(s) 3, Pharmacy: [facility]/pharmacy #[id number], 185.5, cm, 01/09/23 16:37:00 [...] Ordered Start: 03-23-2017 take 1 capsule by [facility] once daily Prilosec 20 mg Cap - DR 20 mg, Oral, Daily, Refills(s) 0 Start Date: 03/23/17 Status: Ordered Start: 2016 take 1 capsule by [facility] once daily Omeprazole 40 mg capsule Indications: Gastroesophageal reflux disease, esophagitis presence not specified Take 1 capsule by mouth once daily. 30 capsule 11 2016 Active take 1 tablet by [facility] once daily PriLOSEC OTC 20 MG 1 tablet 30 minutes before morning meal Orally Once a day Active End: 07-25-2021 Omeprazole Magnesium (PRILOS EC OTC) 20 mg tablet 2 tablet 0 07/25/2021 Discontinued (Discontinued by Patient) Comment on above: Take 1 capsule by [facility] once daily. 2 tablet ondansetron (ZOFRAN-ODT) [...] Starting Sat08/01/20 at 2358 polyethylene glycol 3350 67549 mg powder for oral solution (1 source) [...] tab(s), Refill(s) 0, 1-2 tab(s) Oral q4hr, [facility], 185.5, cm, 08/08/21 12:06:00 EDT, Height/Length [...] autopap titration study. Please fax results to [phone]. DX: JACOBY G47.33 1 Each 0 11/08/2016 09/13/2020 Discontinued Comment on above: Please perform autop ap titration study. Please fax results to [phone]. DX: JACOBY G47.33 doxepin hydrochloride 10 mg [...] Comment on above: Take 2 tablets by [facility] daily with dinner. 1 ml morphine [...] 10 mL injection (DEFINITY) polyethylene glycol 3350 460579 mg / potassium chloride 2970 mg / sodium bicarbonate 6740 mg / sodium chloride 5860 mg / sodium sulfate 92477 mg powder for oral solution (14 sources) [...] [Morbid obesity with BMI of 50.0-59.9, adult ([facility])] Onset: 11-26-2019 Chronic Other nutritional; endocrine; and metabolic disorders (4 sources) Body mass index (BMI) 50.0-59.9, adult; Translations: [Morbid obesity with BMI of 50.0-59.9, adult ([facility])] Onset: 11-26-2019 Chronic Other nutritional; [...] Facility ED Note-Physicianon 05-31-19 ED Note-Physician [id number]#1.00TIFF Normal [facility] ED Note-Physicianon 05-29-19 ED Note-Physician [id number]#1.00TIFF Normal [facility] RAD - MISCon 05-29-2023 RAD - MISC [id number]#1.00TIFF Normal [facility] [id number]#1.00TIFF Normal [facility] [id number]#1.00TIFF Normal [facility] Consultation Noteon 05-23-19 Consultation Note [id number]#1.00TIFF Normal [facility] Family Medicine Office/Clini c Noteon 04-30-2023 Family Medicine Office/Clinic Note HPI Staff Nehal is a 52 year old male presenting to establish care Establish Care: History: Any previous diagnosis: HTN, Heel spurs Asthma, Depression, headaches, headaches, migraines, kidney stones, JACOBY History of seeing any specialist: Dr cowan ortho When was your last doctors visit: Last provider: Dr Aguillon Any recent labs: [facility] around 8 months ago Flu: refused Health Maintenance UTD: Colonoscopy: 2021 PSA: unsure if it has ever been checked Acute: Current issues/complaints: Pt has sleep study done and uses machine would like cpap supplies sent to [employer] in [place] pt does wear full mask- Resmed Air Touch F20 machine is Air [employer]ve 10VAuto Needs refill on lisinopril fYI: pt is seeing Neurology referral was sent through [employer]. 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 pt will have them done at [facility] on Saturday. Ordered: Misc Prescription, Full [...] will send order to medical supplies in [place] Ordered: Misc Prescription, Full Mask Resmed Air [...] Daily, # 90 tab(s), Refills(s) 3, Pharmacy: [facility]/pharmacy #[id number], 185.5, cm, 01/09/23 16:37:00 EDT, Height/Length Dosing, 174.3, kg, 01/09/23 16:37:00 EDT, Weight Dosing Follow-up No qualifying data (more content not included)... Normal [facility] Comment on above: Result Comment: Elec tronically Signed By: Vonnie Gardner\.br\Date and Time Signed: 04/30/23 14:06 EST Operative Reporton Operative Report [id number]#1.00TIFF Normal [facility] MR SHOULDER LEFT WO IV CONTR Kyle [...] Available Comment on above: Order Comment: [facility] - C9 Approved Patient had Left Shoulder surgery 1 year ago Previous MRI Lab Reportson 03-14-2023 Lab Reports [id number]#1.00TIFF Normal [facility] Lab Miscellaneous-on 03-13 Lab Miscellaneous See Ref Report Invalid Interpretation Code [facility] Comment on above: Performed By: #### 1 [id number] ####[facility] [address] [place] [address] Reference Lab Reporton 03-13 Reference Lab Report [id number]#1.00TIFF Normal [facility] Lab Miscellaneous-on 03-12 Lab Miscellaneous See Ref Report Invalid Interpretation Code [facility] Comment on above: Result Comment: Perf ormed at: [facility] [id number] PhD João Blankenship See scanned report Performed at: [facility] [id number] PhD João Blankenship Performed By: #### 1 [id number] ####[facility] [address] [place] [address] Reference Lab Reporton 03-12 Reference Lab Report [id number]#1.00TIFF Normal [facility] Lab Miscellaneous-LCon 03-08 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 Performed By: #### 2 894698, 9609291, 1546145 ####[address] [address] Basophils/Leukocytes Auto (Bld) [Pure # fraction] 0.1 E9/L Normal 0.0-0.2 [facility] Comment on above: Order Comment: Order Added by Discern Expert. Performed By: #### 2 339157, 2153556, 1711185 ####[address] [address] Eosinophils/100 WBC (Bld) 2.6 % Normal 0.0-8.0 [facility] Comment on above: Order Comment: Order Added by Discern Expert. Performed By: #### 2 210845, 4980042, 4517962 ####[address] [address] Eosinophils/Leukocyt es Auto (Bld) [Pure # fraction] 0.2 E9/L Normal 0.0-0.5 [facility] Comment on above: Order Comment: Order Added by Discern Expert. Performed By: #### 2 924037, 7422296, 4437545 ####[address] [address] Lymphocytes/100 WBC (Bld) 18.6 % Normal 14.0-50.0 [facility] Comment on above: Order Comment: Order Added by Discern Expert. Performed By: #### 2 650990, 6644435, 0219607 ####[address] [place] [address] Lymphocytes/Leukocyt es Auto (Bld) [Pure # fraction] 1.3 E9/L Normal 1.0-4.0 [facility] Comment on above: Order Comment: Order Added by Discern Expert. Performed By: #### 2 367543, 1041700, 9047224 ####[address] [address] Monocytes/100 WBC (Bld) 10.3 % Normal 4.0-14.0 [facility] Comment on above: Order Comment: Order Added by Wilbert Expert. Performed By: #### 2 326865, 8835940, 8556943 ####[address] [address] Monocytes/Leukocytes Auto (Bld) [Pure # fraction] 0.7 E9/L Normal 0.2-1.0 [facility] Comment on above: Order Comment: Order Added by Discern Expert. Performed By: #### 2 255292, 1251267, 9218794 ####[address] [address] Neutrophils/100 WBC (Bld) 67.8 % Normal 36.0-75.0 [facility] Comment on above: Order Comment: Order Added by Discern Expert. Performed By: #### 2 052880, 4353284, 7026690 ####[address] [address] Neutrophils/Leukocyt es Auto (Bld) [Pure # fraction] 4.8 E9/L Normal 2.0-7.5 [facility] Comment on above: Order Comment: Order Added by Wilbert Expert. Performed By: #### 2 652951, 7258231, 7505147 ####[address] [address] CBC w/ Auto Diffon 3 Erythrocyte distribution width (RBC) [Ratio] 13.1 % Normal 10.9-14.2 [facility] Comment on above: Performed By: #### 2 085301, 6273463, 7358533 ####[address] [place] [address] Hematocrit (Bld) [Volume fraction] 39.2 % Normal 37.7-49.0 [facility] Comment on above: Performed By: #### 2 931585, 6869088, 8153580 ####[address] [address] Hemoglobin (Bld) [Mass/Vol] 13.4 g/dL Low 13.5-17.5 [facility] Comment on above: Performed By: #### 2 989267, 5584294, 8351833 ####[address] [address] MCH (RBC) [Entitic mass] 29.0 pg Normal 27.0-34.0 [facility] Comment on above: Performed By: #### 2 707086, 5311017, 9251791 ####[address] [address] MCHC (RBC) [Mass/Vol] 34.3 g/dL Normal 31.4-36.0 [facility] Comment on above: Performed By: #### 2 872575, 7281515, 3704785 ####[address] [address] MCV (RBC) [Entitic vol] 84.6 fL Normal 80.0-100.0 [facility] Comment on above: Performed By: #### 2 657060, 7244012, 9397733 ####[address] [address] Platelet mean volume (Bld) [Entitic vol] 7.7 fL Normal 6.4-10.8 [facility] Comment on above: Performed By: #### 2 240730, 6899646, 2826152 ####[address] [place] [address] Platelets (Bld) [#/Vol] 261.0 E9/L Normal 150.0-500. 0 [facility] Comment on above: Performed By: #### 2 130179, 9959238, 4871582 ####[address] [address] RBC (Bld) [#/Vol] 4.6 E12/L Normal 4.3-5.9 [facility] Comment on above: Performed By: #### 2 327248, 6780054, 6747363 ####[facility] [address] [place] [address] WBC corrected for nucl RBC Auto (Bld) [#/Vol] 7.1 E9/L Normal 4.0-11.0 [facility] Comment on above: Performed By: #### 2 599756, 2681807, 7861979 ####[facility] [address] [place] [address] CHEMISTRYOrdered By: SYSTEM SYSTEM on 03-07-2023 CRP [Mass/Vol] 1.8 mg/dL Normal <=1.9mg/dL [facility] Remis ol CRPon 03-07-2023 CRP [Mass/Vol] 1.8 mg/dL Normal <=1.9 [facility] Comment on above: Performed By: #### 2 635319, 0838926, 2689904 ####[address] [address] Consent for Treatmenton Consent for Treatment [id number]#1.00TIFF Normal [facility] Erythrocyte Sedimentation Ra aniya 03-07-2023 ESR (Bld) [Velocity] 9 mm/h Normal 0-19 [facility] Comment on above: Result Comment: PERF ORMED BY: [facility] [address] [place] [id number] PATHOLOGIST RESEARCH AGRICULTURAL ENGINEER BARI GREENE M.D. Performed By: #### E SR #### [facility] [address] [id number] [place]UST Erythrocyte sedimentation ra te by Photometric methodOrdered By: Huan Cowan on 03-07-2023 ESR Photometric method (Bld) [Velocity] 9 mm/hr 0-19 [facility] HEMATOLOGYOrdered By: SYSTEM SYSTEM on 03-07-2023 [...] 29.0 pg Normal 27.0 - 34.[address] [facility] HemeAutoSS MCHC (RBC) [Mass/Vol] 34.3 g/dL Normal 31.4 - 36.0 gm/dL FT HemeAutoSS MCV (RBC) [Entitic vol] 84.6 fL Normal 80.0 - 100.0 fL FT HemeAutoSS Platelet mean volume (Bld) [Entitic vol] 7.7 fL Normal 6.4 - 10.[address] [facility] HemeAutoSS Platelets (Bld) [#/Vol] 261.0 E9/L Normal 150.0 - 500.0 E9/L [facility] HemeAutoSS RBC (Bld) [#/Vol] 4.6 E12/L Normal 4.3 - 5.9 E12/L [facility] HemeAutoSS WBC corrected for nucl RBC Auto (Bld) [#/Vol] 7.1 E9/L Normal 4.0 - 11.0 E9/L [facility] HemeAutoSS Lab Miscellaneous-LCon 03-07 Test Code 290279 Invalid Interpretation Code [facility] Comment on above: Performed By: #### 1 [id number] ####[address] [address] Test Code TO [facility] Invalid Interpretation Code [facility] Comment on above: Performed By: #### 1 [id number] ####[address] [address] Test Name [place] 6 Invalid Interpretation Code [facility] Comment on above: Performed By: #### 1 [id number] ####[facility] [address] [place] [address] Test Name SED RATE/FIREAL Invalid Interpretation Code [facility] Comment on above: Performed By: #### 1 [id number] ####[address] [address] Physician Orderon 03-07-2023 Physician Order [id number]#1.00TIFF Normal [facility] Reference Laboratory Testing Ordered By: Yasmeen Ca on 03-07-2023 Sodium [Moles/Vol] 126464 mmol/L Invalid Interpretation Code [facility] SendOutsSS Test Code TO [facility] Invalid Interpretation Code [facility] SendOutsSS Test Name SED RATE/FIREAL Invalid Interpretation Code [facility] SendOutsSS Test Name [place] [address] [facility] SendOutsSS Operative Reporton Operative Report [id number]#1.00TIFF Normal [facility] Formson 02-27-2023 Forms [id number]#1.00TIFF Normal [facility] Provider Letteron 02-27-2023 Provider Letter (Inserted Image. Jessica ble to display) [address] [place] [address] February 27, 2023 NEHAL BAIG [address] [place] [address] : [address] Mazariegos, The above patient has been evaluated at your request for preoperative clearance. After assessment of available pertinent labs and diagnostic tests, I feel this patient is medically optimized for surgery. Final discretion of whether the patient is cleared for surgery remains up to the surgeon/anesthesiologist. Thank you, MOSHE Mota Normal [facility] Auto Diffon 02-26-2023 Basophils/100 WBC (Bld) 0.6 % Normal 0.0-2.0 [facility] Comment on above: Order Comment: Order Added by Discern Expert. Performed By: #### 2 341547, [id number] ####[facility] [address] [place] [address] Basophils/Leukocytes Auto (Bld) [Pure # fraction] 0.1 E9/L Normal 0.0-0.2 [facility] Comment on above: Order Comment: Order Added by Discern Expert. Performed By: #### 2 902671, 4154883 ####[facility] [address] [place] [address] Eosinophils/100 WBC (Bld) 2.3 % Normal 0.0-8.0 [facility] Comment on above: Order Comment: Order Added by Discern Expert. Performed By: #### 2 129632, 9160476 ####[address] [address] Eosinophils/Leukocyt es Auto (Bld) [Pure # fraction] 0.2 E9/L Normal 0.0-0.5 [facility] Comment on above: Order Comment: Order Added by Discern Expert. Performed By: #### 2 075069, 7254306 ####[address] [address] Lymphocytes/100 WBC (Bld) 16.2 % Normal 14.0-50.0 [facility] Comment on above: Order Comment: Order Added by Discern Expert. Performed By: #### 2 492639, 2307139 ####[address] [address] Lymphocytes/Leukocyt es Auto (Bld) [Pure # fraction] 1.5 E9/L Normal 1.0-4.0 [facility] Comment on above: Order Comment: Order Added by Discern Expert. Performed By: #### 2 283226, 6032930 ####[address] [address] Monocytes/100 WBC (Bld) 6.8 % Normal 4.0-14.0 [facility] Comment on above: Order Comment: Order Added by Wilbert Expert. Performed By: #### 2 990183, 7037185 ####[address] [address] Monocytes/Leukocytes Auto (Bld) [Pure # fraction] 0.6 E9/L Normal 0.2-1.0 [facility] Comment on above: Order Comment: Order Added by Discern Expert. Performed By: #### 2 500074, 9122690 ####[address] [address] Neutrophils/100 WBC (Bld) 74.1 % Normal 36.0-75.0 [facility] Comment on above: Order Comment: Order Added by Discern Expert. Performed By: #### 2 988381, 7566986 ####[address] [place] [address] Neutrophils/Leukocyt es Auto (Bld) [Pure # fraction] 6.6 E9/L Normal 2.0-7.5 [facility] Comment on above: Order Comment: Order Added by Discern Expert. Performed By: #### 2 067206, 8020988 ####[address] [address] CBC w/ Auto Diffon Erythrocyte distribution width (RBC) [Ratio] 13.6 % Normal 10.9-14.2 [facility] Comment on above: Performed By: #### 2 254969, 2341033 ####[address] [address] Hematocrit (Bld) [Volume fraction] 40.5 % Normal 37.7-49.0 [facility] Comment on above: Performed By: #### 2 825460, 6656925 ####[address] [address] Hemoglobin (Bld) [Mass/Vol] 13.9 g/dL Normal 13.5-17.5 [facility] Comment on above: Performed By: #### 2 215590, 3074233 ####[address] [address] MCH (RBC) [Entitic mass] 28.9 pg Normal 27.0-34.0 [facility] Comment on above: Performed By: #### 2 062014, 8315551 ####[address] [address] MCHC (RBC) [Mass/Vol] 34.3 g/dL Normal 31.4-36.0 [facility] Comment on above: Performed By: #### 2 756502, 7735843 ####[address] [address] MCV (RBC) [Entitic vol] 84.2 fL Normal 80.0-100.0 [facility] Comment on above: Performed By: #### 2 800831, 4397910 ####[facility] [address] [place] [address] Platelet mean volume (Bld) [Entitic vol] 7.7 fL Normal 6.4-10.8 [facility] Comment on above: Performed By: #### 2 [id number], [id number] ####[address] [address] Platelets (Bld) [#/Vol] 244.0 E9/L Normal 150.0-500. 0 [facility] Comment on above: Performed By: #### 2 [id number], [id number] ####[address] [address] RBC (Bld) [#/Vol] 4.8 E12/L Normal 4.3-5.9 [facility] Comment on above: Performed By: #### 2 [id number], [id number] ####[address] [address] WBC corrected for nucl RBC Auto (Bld) [#/Vol] 8.9 E9/L Normal 4.0-11.0 [facility] Comment on above: Performed By: #### 2 [id number], [id number] ####[address] [address] Consent for Treatmenton 01-31 Consent for Treatment [id number]#1.00TIFF Normal [facility] HEMATOLOGYOrdered By: SYSTEM SYSTEM on 02-26-2023 [...] 8.9 E9/L Normal 4.0 - 11.0 E9/L [facility] HemeAutoSS Physician Orderon 02-26-2023 Physician Order [id number]#1.00TIFF Normal [facility] CHEMISTRYOrdered By: SYSTEM SYSTEM on 02-25-2023 CRP [Mass/Vol] 6.7 mg/dL High <=1.9mg/dL [facility] Remis ol CRPon 02-25-2023 CRP [Mass/Vol] 6.7 mg/dL High <=1.9 [facility] Comment on above: Performed By: #### 2 390050 ####[facility] [address] [place] [address] Consent for Treatmenton 01-31 Consent for Treatment [id number]#1.00TIFF Normal [facility] ED Note-Physicianon 02-26-20 ED Note-Physician [id number]#1.00TIFF Normal [facility] Lab Miscellaneous-LCon 02-25 Test Code 619275 Invalid Interpretation Code [facility] Comment on above: Performed By: #### 1 [id number] ####[facility] [address] [place] [address] Test Name Interleukin-6 Invalid Interpretation Code [facility] Comment on above: Performed By: #### 1 [id number] ####[facility] [address] [place] [address] Physician Orderon 02-25-2023 Physician Order [id number]#1.00TIFF Normal [facility] RAD - MISCon 02-25-2023 RAD - MISC [id number]#1.00TIFF Normal [facility] Reference Laboratory Testing Ordered By: Elysia Oseguera on 02-25-2023 Sodium [Moles/Vol] 227956 mmol/L Invalid Interpretation Code [facility] SendOutsSS Test Name Interleukin-[address] [facility] SendOutsSS Consultation Noteon 02-20-20 Consultation Note [id number]#1.00TIFF Normal [facility] Operative Reporton 3 Operative Report [id number]#1.00TIFF Normal [facility] Consultation Noteon 01-30-20 Consultation Note [id number]#1.00TIFF Normal [facility] RAD - MRI Reporton 3 RAD - MRI Report [id number]#1.00TIFF Normal [facility] XR cerv spine AP/LAT/FLX/EXT on 01-17-2023 XR cerv spine AP/LAT/FLX/EXT [facility] [place] [address] XRay Report Signed Patient: Nehal Baig MR#: [id number] 8 : 1970 Acct:[id number] Age/Sex: 52 / M ADM Date: 01/17/23 Loc: XD Room: Type: [facility] Attending Dr: Siri MALONEY Copies to: HAIDER [...] Khadijah Roach M.D.01/17/2023 4:22 PM Dictation Location: [facility]--12 Transcribed By: [facility] 01/17/23 1622 Dictated By: Khadijah Roach MD 01/17/23 1620 Signed By: 01/17/23 162 [facility] XR lumbar spine 6V w bending on 01-17-2023 XR lumbar spine 6V w bending [facility] [place] [address] XRay Report Signed Patient: Nehal Baig MR#: [id number] 8 : 1970 Acct:[id number] Age/Sex: 52 / M ADM Date: 01/17/23 Loc: XD Room: Type: [facility] Attending Dr: Siri BERRYC Copies to: HAIDER [...] Christopher Cedeno M.D.01/17/2023 12:51 PM Dictation Location: [facility]-05 Transcribed By: [facility] 01/17/23 1251 Dictated By: Christopher Cedeno DO 01/17/23 1246 Signed By: 01/17/23 1251 [facility] RAD - MISCon 01-16-2023 RAD - MIS [id number]#1.00TIFF [facility] RAD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 Normal 3.9-4.9 [facility] Comment on above: Order Comment: Speci men Type: BLOOD SPECIMENOrdering Facility: [facility] Address: [address] [place] [address] Performed By: #### 3 016-3, 53314-7 ####[facility] LABCLIA [id number] [address] [place]#### [address]-5 ####[facility] LABCLIA [id number] [place] [address] [place] [facility] [place] LABORATORYCLIA [id number] [place] [address] [place] ALP [Catalytic activity/Vol] 85 U/L Normal 38-113 [facility] Comment on above: Order Comment: Speci men Type: BLOOD SPECIMENOrdering Facility: [facility] Address: [facility] [place] [id number] Performed By: #### 3 016-3, 00499-7 ####[facility] LABCLIA [id number] [place] [address] [place]#### 51813-5 ####[facility] LABCLIA [id number] [address] [place] LABORATORYCLIA [id number] [place] [address] [place] ALT [Catalytic activity/Vol] 34 U/L Normal 10-54 [facility] Comment on above: Order Comment: Speci men Type: BLOOD SPECIMENOrdering Facility: [facility] Address: [address] [place] [address] Performed By: #### 3 016-3, 14109-3 ####[facility] LABCLIA [id number] [place] [address] [place]#### 31745-3 ####[facility] LABCLIA [id number] [address] LABORATORYCLIA [id number] [address] [place] Anion gap [Moles/Vol] 10 mmol/L Normal 9-18 [facility] Comment on above: Order Comment: Speci men Type: BLOOD SPECIMENOrdering Facility: [facility] Address: [address] [id number] Performed By: #### 3 016-3, 01272-3 ####[facility] LABCLIA [id number] [place] [address] [place]#### 58939-8 ####[facility] LABCLIA [id number] [place] [id number] [facility] [place] LABORATORYCLIA [id number] [place] [address] [place] AST [Catalytic activity/Vol] 25 U/L Normal 14-40 [facility] Comment on above: Order Comment: Speci men Type: BLOOD SPECIMENOrdering Facility: [facility] Address: [address] [place] [address] Performed By: #### 3 016-3, 51414-3 ####[facility] LABCLIA [id number] [place] [address] [place]#### 68381-9 ####[facility] LABCLIA [id number] [address] LABORATORYCLIA [id number] [place] [address] [place] Bilirubin [Mass/Vol] 0.4 mg/dL Normal 0.2-1.3 [facility] Comment on above: Order Comment: Speci men Type: BLOOD SPECIMENOrdering Facility: [facility] Address: [address] [place] [address] Performed By: #### 3 016-3, 72564-2 ####[facility] LABCLIA [id number] [place] [address] [place]#### 20145-5 ####[facility] LABCLIA [id number] [address] [facility] LABORATORYCLIA [id number] [place] [address] [place] Calcium [Mass/Vol] 9.3 mg/dL Normal 8.5-10.2 [facility] Comment on above: Order Comment: Speci men Type: BLOOD SPECIMENOrdering Facility: [facility] Address: [address] Performed By: #### 3 016-3, 60379-6 ####[facility] LABCLIA [id number] [place] [address] [place]#### 55199-5 ####[facility] LABCLIA [id number] [place] [address] [place] [facility] [place] LABORATORYCLIA [id number] [place] [address] [place] Chloride [Moles/Vol] 103 mmol/L Normal 97-105 [facility] Comment on above: Order Comment: Speci men Type: BLOOD SPECIMENOrdering Facility: [facility] Address: [address] [place], [place] [address] Performed By: #### 3 016-3, 01720-9 ####[facility] LABCLIA [id number] [place] [address] [place]#### 00936-5 ####[facility] LABCLIA [id number] [address] STATES OF [facility] LABORATORYCLIA [id number] [place] [address] [place] CO2 [Moles/Vol] 26 mmol/L Normal 22-30 [facility] Comment on above: Order Comment: Speci men Type: BLOOD SPECIMENOrdering Facility: [facility] Address: [address] [place], [place] [address] Performed By: #### 3 016-3, 91089-1 ####[facility] LABCLIA [id number] [place] [address] [place]#### 71226-0 ####[facility] LABCLIA [id number] [place] [id number] [place] [facility] [place] LABORATORYCLIA [id number] [place] [address] [place] Creatinine [Mass/Vol] 0.90 mg/dL Normal 0.73-1.22 [facility] Comment on above: Order Comment: Speci men Type: BLOOD SPECIMENOrdering Facility: [facility] Address: [address] [address] Performed By: #### 3 016-3, 96155-9 ####[facility] LABCLIA [id number] [place] [address] [place]#### 61993-1 ####[facility] LABIA [id number] [address] LABORATORYCLIA [id number] [place] [address] [place] ESTIMATED GLOMERULAR FILTRATION RATE 105 mL/min/1.73m??? Normal >=60 [facility] Comment on above: Order Comment: Speci men Type: BLOOD SPECIMENOrdering Facility: [facility] Address: [address] [address] Result Comment: Halle mated Glomerular Filtration Rate [...] actual GFR. Performed By: #### 3 016-3, 78848-7 ####[facility] LABCLIA [id number] [place] [address] [place]#### 66420-3 ####[facility] LABCLIA [id number] [address] LABORATORYCLIA [id number] [place] [address] [place] Glucose [Mass/Vol] 115 mg/dL High 74-99 [facility] Comment on above: Order Comment: Speci [facility] Type: BLOOD SPECIMENOrdering Facility: [facility] Address: [address] [place] [address] Result Comment: The [place] Diabetes Association (ADA) provides guidance for cutoff [...] Standards of Medical Care in Diabetes 2016, [place] Diabetes Association. Diabetes Care. 2016.39(Suppl 1). Performed By: #### 3 016-3, 03798-6 ####[facility] LABIA [id number] [address] STATES OF [facility]#### 42779-4 ####[facility] LABCLIA [id number] [address] LABORATORYIA [id number] [place] [address] [place] Potassium [Moles/Vol] 4.2 mmol/L Normal 3.7-5.1 [facility] Comment on above: Order Comment: Speci men Type: BLOOD SPECIMENOrdering Facility: [facility] Address: [address] [place] [address] Performed By: #### 3 016-3, ####[facility] LABIA [id number] [place] [address] [place]#### 01056-0 ####[facility] LABIA [id number] [address] LABORATORYIA [id number] [address] [place] Protein [Mass/Vol] 6.9 g/dL Normal 6.3-8.0 [facility] Comment on above: Order Comment: Speci men Type: BLOOD SPECIMENOrdering Facility: [facility] Address: [address] [id number] Performed By: #### 3 016-3, 58376-9 ####[facility] LABCLIA [id number] [place] [address] [place]#### 39722-7 ####[facility] LABCLIA [id number] [place] [id number] [place] [facility] [place] LABORATORYCLIA [id number] [place] [address] [place] Sodium [Moles/Vol] 139 mmol/L Normal 136-144 [facility] Comment on above: Order Comment: Speci men Type: BLOOD SPECIMENOrdering Facility: [facility] Address: [address] [place] [address] Performed By: #### 3 016-3, ####[facility] LABCLIA [id number] [place] [address] [place]#### 36042-6 ####[facility] LABCLIA [id number] [address] [facility]ATORYCLIA [id number] [place] [address] [place] Urea nitrogen [Mass/Vol] 15 mg/dL Normal 9-24 [facility] Comment on above: Order Comment: Speci men Type: BLOOD SPECIMENOrdering Facility: [facility] Address: [address] [id number] Performed By: #### 3 016-3, 88790-6 ####[facility] LABCLIA [id number] [place] [id number] [place]#### 63348-6 ####[facility] LABCLIA [id number] [address] [address] [place] [facility] [place] LABORATORYCLIA [id number] [place] [address] [place] HbA1c (Bld)on 02-10-2022 Average glucose Estimated from glycated hemoglobin (Bld) [Mass/Vol] 105 mg/dL Normal [facility] Comment on above: Order Comment: Tessa flores Type: BLOOD SPECIMENOrdering Facility: [facility] Address: [address] [place] [address] Result Comment: eAG: (Estimated average glucose) is a calculated value from HgbA1c and is door to door sales representative of the average blood glucose level in the last 2-3 month period. Performed By: #### 5 5454-3 ####[facility] LABCLIA [id number] [address] HbA1c (Bld) [Mass fraction] 5.3 % Normal 4.3-5.6 [facility] Comment on above: Order Comment: Tessa flores Type: BLOOD SPECIMENOrdering Facility: [facility] Address: [address] [place] [address] Result Comment: [place] Diabetes Association guidelines indicate that patients with HgbA1c in the range 5.7-6.4% are at increased risk for development of diabetes, and intervention by lifestyle modification may be beneficial. HgbA1c greater or equal to 6.5% is considered diagnostic of diabetes. Performed By: #### 5 5454-3 ####[facility] LABCLIA [id number] [address] [place] Lipid 1996 panelon 2 Cholesterol [Mass/Vol] 179 mg/dL Normal <200 [facility] Comment on above: Order Comment: Tessa flores Type: BLOOD SPECIMENOrdering Facility: [facility] Address: [address] [place] [address] Result Comment: <200 mg/dL, Desirable 200-239 mg/dL, Borderline high >239 mg/dL, High Performed By: #### 3 016-3, 85383-7 ####[facility] LABCLIA [id number]#### [address]-6 ####[facility] LABCLIA [id number] [address] [place] [facility]ATORYCLIA [id number] [place], [place] [address] [place] [address] Cholesterol in HDL [Mass/Vol] 36 mg/dL Low >39 [facility] Comment on above: Order Comment: Speci men Type: BLOOD SPECIMENOrdering Facility: [facility] Address: [address] [id number] Result Comment: 40-5 9 mg/dL, Acceptable >59 mg/dL, High: Negative risk factor for coronary heart disease <40 mg/dL, Low: Positive risk factor for coronary heart disease Performed By: #### 3 016-3, 33212-0 ####[facility] LABCLIA [id number] [address] [place]#### [address]35[address]-1 ####[facility] LABCLIA [id number] [address] [place] [facility]ORATORYCLIA [id number] [address] Cholesterol in LDL [Mass/Vol] 104 mg/dL High <100 [facility] Comment on above: Order Comment: Speci men Type: BLOOD SPECIMENOrdering Facility: [facility] Address: [address] [place], [place] [id number] Result Comment: <100 mg/dL, Optimal 100-129 mg/dL, Near optimal/above optimal 130-159 mg/dL, Borderline high 160-189 mg/dL, High >189 mg/dL, Very high Secondary prevention optimal LDL Cholesterol levels are recommended to be < 70 mg/dL Performed By: #### 3 016-3, 17846-7 ####[facility] LABCLIA [id number] [address] [place]#### [address]-3 ####[facility] LABCLIA [id number] [address] [place] [facility]ATORYCLIA [id number] [address] Cholesterol in LDL/Cholesterol in HDL [Mass ratio] 2.89 {ratio} High <2.54 [facility] Comment on above: Order Comment: Speci men Type: BLOOD SPECIMENOrdering Facility: [facility] Address: [address] [place] [address] Result Comment: Refe caitlin: 1. National Cholesterol Education Program ATP III Guideline At-A-Glance Quick Desk Reference: National Heart, Lung, and Blood [place]. National Institutes of Health. 2001: NIH Publication No. 01-3305. 2. An International Atherosclerosis Society position paper: global recommendations for the management of dyslipidemia: executive summary, Atherosclerosis. 2014: 232(2):410-413. Performed By: #### 3 016-3, 91888-9 ####[facility] LABCLIA [id number] [place] [address] [place]#### 25[address]-1 ####[facility] LABCLIA [id number] [address] LABORATORYCLIA [id number] [place] [address] [place] Cholesterol in VLDL [Mass/Vol] 39 mg/dL High <30 [facility] Comment on above: Order Comment: Speci men Type: BLOOD SPECIMENOrdering Facility: [facility] Address: [address] [place] [address] Performed By: #### 3 016-3, 58847-8 ####[facility] LABCLIA [id number] [place] [address] [place]#### 55022-9 ####[facility] LABCLIA [id number] [address] STATES OF [facility]ATORYCLIA [id number] [place] [address] [place] Cholesterol non HDL [Mass/Vol] 143 mg/dL High <130 [facility] Comment on above: Order Comment: Speci men Type: BLOOD SPECIMENOrdering Facility: [facility] Address: [address] [place], [place] [id number] Result Comment: <130 mg/dL, Optimal 130-159 mg/dL, Near optimal/above optimal 160-189 mg/dL, Borderline high 190-219 mg/dL, High >219 mg/dL, Very high Secondary prevention optimal non HDL Cholesterol levels are recommended to be <100 mg/dL Performed By: #### 3 016-3, 08320-9 ####[facility] LABCLIA [id number] [place] [address] [place]#### 74098-7 ####[facility] LABCLIA [id number] [address] STATES [facility]ORATORYCLIA [id number] [place] [address] [place] Cholesterol.total/Ch olesterol in HDL [Mass ratio] 4.97 {ratio} Normal <5.10 [facility] Comment on above: Order Comment: Speci men Type: BLOOD SPECIMENOrdering Facility: [facility] Address: [address] [place] [address] Performed By: #### 3 016-3, 84326-6 ####[facility] LABCLIA [id number] [place] [address] [place]#### 46807-6 ####[facility] LABCLIA [id number] [address] STATES OF [facility]ATORYCLIA [id number] [place] [address] [place] FASTING TIME 12 hrs Normal [facility] Comment on above: Order Comment: Speci men Type: BLOOD SPECIMENOrdering Facility: [facility] Address: [address] [place] [address] Performed By: #### 3 016-3, 82501-9 ####[facility] LABCLIA [id number] [place] [address] [place]#### 24686-8 ####[facility] LABCLIA [id number] [address] LABORATORYCLIA [id number] [place] [address] [place] Triglyceride [Mass/Vol] 197 mg/dL High <150 [facility] Comment on above: Order Comment: Speci men Type: BLOOD SPECIMENOrdering Facility: [facility] Address: [address] [place] [address] Result Comment: <150 mg/dL, Normal 150-199 mg/dL, Borderline high 200-499 mg/dL, High >499 mg/dL, Very high Performed By: #### 3 016-3, 91212-7 ####[facility] LABCLIA [id number] [place] [address] [place]#### 40794-6 ####[facility] LABCLIA [id number] [address] STATES [facility]ORATORYCLIA [id number] [place] [address] [place] PSA/PROSTSPECAG SCRNon 02-10 Prostate specific Ag [Mass/Vol] 0.42 ng/mL Normal <2.60 [facility] Comment on above: Order Comment: Speci men Type: BLOOD SPECIMENOrdering Facility: [facility] Address: [address] [place] [address] Result Comment: Tota l PSA test methodology used is the Electrochemiluminescence Immunoassay by [employer]. Total PSA values by differing methodologies cannot be interchanged. Performed By: #### P SAS1 ####[facility] LABCLIA [id number] [place] [address] [place] TSH SerPl-aCncon 02-10-2022 TSH Qn 1.220 m[IU]/L Normal 0.270-4.20 0 [facility] Comment on above: Order Comment: Speci men Type: BLOOD SPECIMENOrdering Facility: [facility] Address: [address] [address] Performed By: #### 3 016-3, 94705-0 ####[facility] LABCLIA [id number] [place] [address] [place]#### 61028-4 ####[facility] LABCLIA [id number] [place] [address] [place] [facility] [place] LABORATORYCLIA [id number] [place] [address] [place] URINALYSIS, REFLEX MICROSCOP ICon 02-10-2022 Bilirubin Ql (U) Negative Normal Negative [facility] Comment on above: Order Comment: Speci men Type: URINE SPECIMENOrdering Facility: [facility] Address: [address] [place] [address] Performed By: #### L [id number] ####[facility] LABCLIA [id number] [place] [address] [place] CALCIUM OXALATE CRYSTALS (UA) Few Abnormal None Seen [facility] Comment on above: Order Comment: Speci men Type: URINE SPECIMENOrdering Facility: [facility] Address: [address] [address] Performed By: #### L [id number] ####[facility] LABCLIA [id number] [place] [address] [place] Clarity (Unsp spec) Clear Normal Clear [facility] Comment on above: Order Comment: Speci men Type: URINE SPECIMENOrdering Facility: [facility] Address: [address] [address] Performed By: #### L [id number] ####[facility] LABCLIA [id number] [place] [address] [place] Color (U) Yellow Normal Yellow [facility] Comment on above: Order Comment: Speci men Type: URINE SPECIMENOrdering Facility: [facility] Address: [address] [place] [address] Performed By: #### L [id number] ####[facility] LABCLIA [id number] [place] [address] [place] Epithelial cells LM.HPF (Urine sed) [#/Area] Few Normal [facility] Comment on above: Order Comment: Speci men Type: URINE SPECIMENOrdering Facility: [facility] Address: [address] [place] [address] Result Comment: Few Performed By: #### L [id number] ####[facility] LABCLIA [id number] [address] [place] Glucose Test strip (U) [Mass/Vol] Negative Normal Negative [facility] Comment on above: Order Comment: Speci men Type: URINE SPECIMENOrdering Facility: [facility] Address: [address] [place] [address] Performed By: #### L [id number] ####[facility] LABCLIA [id number] [place] [address] [place] Hemoglobin Ql (U) Negative Normal Negative [facility] Comment on above: Order Comment: Speci men Type: URINE SPECIMENOrdering Facility: [facility] Address: [address] [place], [place] [address] Performed By: #### L [id number] ####[facility] LABCLIA [id number] [place] [address] [place] Ketones Ql (U) Negative Normal Negative [facility] Comment on above: Order Comment: Speci men Type: URINE SPECIMENOrdering Facility: [facility] Address: [address] [address] Performed By: #### L [id number] ####[facility] LABIA [id number] [place] [address] [place] [facility] Leukocyte esterase Test strip Ql (U) 75 Joyce/mL Abnormal Negative [facility] Comment on above: Order Comment: Speci men Type: URINE SPECIMENOrdering Facility: [facility] Address: [address] [place] [address] Performed By: #### L [id number] ####[facility] LABIA [id number] [address] [place] Nitrite Ql (U) Negative Normal Negative [facility] Comment on above: Order Comment: Speci men Type: URINE SPECIMENOrdering Facility: [facility] Address: [address] [place] [address] Performed By: #### L [id number] ####[facility] LABIA [id number] [place] [address] [place] pH (U) 6.0 [pH] Normal 5.0-8.0 [facility] Comment on above: Order Comment: Speci men Type: URINE SPECIMENOrdering Facility: [facility] Address: [address] [place] [address] Performed By: #### L [id number] ####[facility] LABIA [id number] [address] [place] Protein (U) [Mass/Vol] 1+ Abnormal Negative [facility] Comment on above: Order Comment: Speci men Type: URINE SPECIMENOrdering Facility: [facility] Address: [address] [place] [address] Performed By: #### L [id number] ####[facility] LABIA [id number] [place] [address] [place] RBC LM.HPF (Urine sed) [#/Area] 0-3 /HPF Normal 0-3 /HPF [facility] Comment on above: Order Comment: Speci men Type: URINE SPECIMENOrdering Facility: [facility] Address: [address] [place] [address] Performed By: #### L [id number] ####[facility] LABIA [id number] [place] [address] [place] Specific gravity (U) [Rel density] 1.037 High 1.005-1.03 0 [facility] Comment on above: Order Comment: Speci men Type: URINE SPECIMENOrdering Facility: [facility] Address: [address] [place] [address] Performed By: #### L [id number] ####[facility] LABIA [id number] [place] [address] [place] Urobilinogen Ql (U) 1+ Abnormal Negative [facility] Comment on above: Order Comment: Speci men Type: URINE SPECIMENOrdering Facility: [facility] Address: [address] [place] [address] Performed By: #### L [id number] ####[facility] LABIA [id number] [place] [address] [place] WBC LM.HPF (Urine sed) [#/Area] 0-5 /HPF Normal 0-5 /HPF [facility] Comment on above: Order Comment: Speci men Type: URINE SPECIMENOrdering Facility: [facility] Address: [address] [place] [address] Performed By: #### L [id number] ####[facility] LABIA [id number] [place] [address] [place] Outside Recordson 02-09-2022 Outside Records [id number]#1.00OTGTIFF [facility] Outside Recordson 01-24-2022 Outside Records [id number]#1.00OTGTIFF [facility] Coding Summaryon 01-04-2022 Coding Summary HTMLBase 64 ZwqgvcuxJGp6nIf+PGhlYWQ+PE 7PAXZbW02heRFteL5XN2bTHU5M SGONFYKNRA1YHB8sqJU9BWqdZ3 VybiAv TwferDBjIS42LXc7HUC5kIlpSN bjbH5gaSXmA4b0TuQsGR11aD02 KDvkNFFtYhI5DbFthxrmiYQe J2ylLqZhfPLjUwe+PHRhYmxlIH cyGZLhOKyiMTVxGwDteHmdAY4j Cf4aYMAySYTwhKdfkXHaTvOb d8hgZQCyFCcdLF2euMtbO5IwhV M8YRVjo7e2Hm97pRT+PHRkIHN0 lXpdEZshd471YuEmb5ayNBG8 vNRdJTiyHJL8E20ls8E2IOJsYO QiBYU0fVB8gC8ixHvjauuxX2Gn uWIvZdU8YXG5sMGztB4zjHzx tongqF8xBro+E73WQT7CPILTFP 7SOru1H2QjMachrCL+CY64LRQg XS98eQJehJZma2vbzRy3IpQq BXPoHTB5zFenJLvkf2TqSCHiY5 0fvXRvn7W4ADAgiWeunMBxWbTg uTB3pY3bMXvierlsw1yljqkt Ayspc0ivix39rM96X64iQRtvBD HdDZC3JRCrRQKncLsjjt4lcO2q Ii8+FDvjf4wkr3oiaUy3RhOe KWDzefEnaLweCBC7j7KpUv40O0 AicHnqd0JkKid8fk54lHCnm9Q3 rZL5DIfsITQgrH4iHJggFuJ9 YDOjYbJprT79mELjOVxdAm9asU nmuCbeYA0uFFEklzhqWWOyvN8c GQLkiUCmiKnoKZ1wGKGvyxee t941UgGyLSD9VLAfaSQpK8CijA 4tFgXlGMYlGXFoO0FoeNGiEHgb F733WLzlLnZ1PAVpquHsX2Jh SCXmuFmwLlU2p4K8To4Xq1Fovy oySGL0YMnqSHYrTzS8YeAqAxH5 E4YaKma8BFOrzNdgGG7gY8Wl HLIameircfaavHS2HDUiBYCafN 77gPQhMRrwZy8uz8K0n391FVMz KNNcoA88Mi0qjSqoETTvaDDB eY3creorj8qrdhxkHnVxJNMxKL w7EWk2IFKyeUrwDzZlZRK6UmS5 LRH9xZIcuZ4seJmkswnmlU3h Oyc+M09pmX7iZLD7LTJ2qfewXG ArakVfZO25HO52N4AuHmeyjRVt bGU+FKLsluCdeKenBR2kKjXo n4lfl3McBRlrK6VxJKAeBMyyFg v1OQDwSWC1pSN0zL6kLLPhTYgf h7T4mTL6Y8HvpgEnxq2hq3xh VLJwKRanT20kuGPsa1Y9JDFmxG F1RZFewPybLaAifK48Rfr+PGNv fPnjd8RbNzcyo3lrt0zocTy2 XfZjWKXffsEabMhjPJU8v5GaPy 96V81qKVnpYQMbIMKxKPIpOLKc vWjqtd9zhO4wQa3+PGNvbCB3 cJJ0iY5pITSrVpY8PTkvI451Fv FedZZnDfvda4gtz7jmlLm9YrSr XFTgejFibTgpNFP3l9SzEq07 Y07xUDxfTSKxZNNdUHLwOPHxeO bkhe4ctU7hEx4+CN6pq2bjlf71 wW33jLZ+ENSpDJF0gBsbGVtl TXAgbZ5fDYcoBbW9MALjNzErdG 44rLKxHXqwZk8dvGyabFptSM0j BDNrlkbat208CpEei6iaBPNx aBWvYWtlJTP8Q10vt0L2YRYjOB OvUKP8sBK5rH3vdKfilwbwrSDd qIpwhzKjlLslEUbhIEpiI814 IHRvcDsnPlBhdGllbnQgTmFtZT h9W4OyZan3PVCjkAnxSB5twYFt VPxaHi6ivHcgpIvyZY8tAMZq lnash531BcRjd9qqPCQewCGxZV omXON7R18at9F0WJTjIHEgDTX5 iOX1lV6gjRcceiyayAGdlYnt lwXwmYddCIttJLchK402KGUdhT vmJoRzgoEzBQGblXE2TT70ZS17 bAYvt4G9lCE0Q9HfAEUrjhqt qhybbQU4SXNwDSBnpB51Mk5gbT uoBh0gEXWgRAX3CKOmwHHbU6Ep pH2sZdNgIYMpCSJqF2KjgQKv NWkqU277FIraWlW4QVBihwMxA4 RfPHDydLnbNqL5x3F4Vm7EN9Q3 ZH38WV56mWBti9U0mTC6M2Tx TCZgoftrwerabPO2SJNdMGBmvJ 73Mh3skPkuVn4qOXRhZKH3AYOy sUZsM9HkuL8gRwBzEHSjXOWc N6LcgMCdQIzhP120CZkhYlV5WO SyiuIxP5AzBFYrtQrnNhD3o2M7 Zy2HJOs2DH01TE03sPIzj1A4 lEG8G4WgYCRqnykokrnixRP3TA PyEHLsgL36Gs2baWnjYz9mPOQt BPG6VILkxGZiC6ZfbP0pKpQl UGDlMXYuT3KtqFZtZZsgW591TR pcJlW1EBCtemBiW9ItMPLvoLrr AmV5o3F2Ux3PIBLeSH68JRZ7 uEO0LI38KI35B2FlSlcmhCTucL U+PHRhYmxlIHdpZHRoPScxMDAl XlQrvYatXL5xDe0tJMVyGXDy uFhvgPQoKrTam0xgFNKlFMckCI 7gcGlqL3BwcOU7MIYpz5g4Kk13 H37vV9QysFD+LAOluME3sJU9 lH4zPvHvShY4WUryZ268VdDygA SdIxwjg0csa3fmiMn1DoN2ZISm ksVaxSsnQAK3c7JeTf23C97w IHdpZHRoPSIxNSUiIHZhbGlnbj 3dkY4aIg1+EIXhoKG6xAL0bH3l WeAuKxG3ENkyO111NcAlgTJr Oarjr5xbj2ngnSd0UnVkODAbbj FonUkkFFJ9x0VoMh48B0DewBri r7QgDvg5cy82bNFfd2Z9jRK4 O4RqPBMfokbbmOMxoYguAM8gZR NlxuhhJXKxrO9hHNGrN0h3AyZz KmO0FWimI2WuxyW1IXSqxGZh LIckIQT6P99fl3R2VBAmRESpOP H9pZS3kJ8owVsjtznptAHszYnx zoZvdRxcKDunJEomG862TQGh rXqgIGMhoU7tFPJcsZVciXbhGA 2yDVBfqxeaSjwCTH5OAznnIMSB CoKRKQzASyD5X9PgPbp5SLCr vVwwOA1jxQVcAUqeLh6peUswhS poKM2uPNKpbjvaDQNblR2rVPDq xKKelQffTI7bPOVxgwxqg163 GrDxCBY5CGGiuGFeK5LrkC0nLp LwGRYoNUQnH3ZvaKRdXXliU586 SFgkLwH7YOMslaTlP5TxDCRd tWofBuT7h3A5Dt3pKa3eNV0aNH feUD79EB27wSRfg3W6gDG7F0Qp NSBdluzhvveyaFJ9IQSmBXXb xQ12fZKwUFzuGz7oh1W6s379JE AlWQUnkO76Ga9wdVbiBLElsYPG gQ2lfmnxs2tmqhwvDvGuQKAg KUe9SRv1IEFhbWbsHqMpREF8Lm A3XUZ0dOYbhL9toGtxknduxV4z Oyc+MUrkFRIzvnV0S5MzWvn3 PYXjfGnsRG6vjXFuHSquWv5haZ qqrQviAC1iADAxthizVUHlrF9q RCXjbWPtgIvjBP6uCUVfzbkt b490XeAdSLF4KPSmkSLvO6EjvP 5tRtErQAZnTJUtL0KggJVzHDwe U568SPydFlG4QGRxulRrE4Br APKxeHneIgC2j1M2Iu6VPWiMLV 27YB23xZRxn0G9tKR0L7LfMBPl dhxqnbaqpZW1QDVdOVQdxZ91 pPPlUEpfLl2wy4K4g504VDDfYA NibD60Hb0dyPeeYQKtsQOAxK4x nhomu8zuucmvYeJqITQfYHz2 EGj3BYBxiHcwDkQdLMO7AbH9AQ O4lSZerD2mpXiegcltsR6rErt+ K7R0X7DgAasznOR+CU42SUCw YR18fGSffKPpu4edxLq1IiDlIL ImKPY1yXqwDDlip1NsVHBzA31s tPOta3O6GEIcvAzryYVuInXi fZL7vW8yPEbxjfvqg1pyuyvsKn zyr8dtyw71eL97X12jWMzeLDPs PFLgWOSaQJYusLwtra5snO0p Ii8+LEGjwSZ3mWE1fI3gDkObIp I7OXspR944VbVyfDYmZfnco0ui o9bimHu9QqHhCTAxxqZllXcr XLQ0q1TpJv39U54nWBwbEBAdKN EuJIVzHVHwcGobjd6waL9bCa1+ MM5mv6rvad16nA37hMI+PHRk WEU8eDhuCUhaNSNclL8rLNmqDl J2TJWbZsSayK03nDHpJRtoYw4a tQxncRtgQE0wZXLpdjijl491 XbUqf8hmJTIuuINcCNpxJTM5D9 3cp5W2LXIoLYWdAZT2eON5gH2n bGlnbjogbGVmdDsgdmVydGlj YTscAHcpA032VFOzuYehWsKprE QkJ5qmudXHTJ4xMdxgyVR+PHRk YAF2sDvqXYboUSNixN3yWPNl W7p3KyQpOsO8IRdqO4ZtfyG0RI LmhVPoWYRknGZBlV9bbvcxe9xq piloUfGmWDIaKNr3MMq3DMCt rOmoGkVvKWK1KiU3NWC2yTCwgF 3nhItclmydgQ6pHev+RklOOjwv dGQ+TLLnFKH7cLxeBUoaKEZd tR0qCVWbX6e2YnDiQtF8BSlnF0 SkkqF5JMRtkRMrXOYldZQNmK1d sqyvg0wcngsjKsGuOFHmXCd8 MAl1KAClxDbmRhTqHND5NvS3CH Y6mNKudV8ezDgtquezuK6xVrz+ TVJOOjwvdGQ+LKZpTFW8iImd CPtuNXKimC6lMTZmW6u6KiVoWc O6FDifN9UvrsB1EEFboVUxOLTe iEILvG6qpzhdd6hwaijqItYr ZZMeWRl3UWr6VVDvuCktXaNjGV Z7FtL5CXB0hDJkpJ6hvUrltzjs rL7qLvv+TGW8FUS8TB72TA23 X7DqFvevwSNrhDS+PHRhYmxlIH myCLQlYTalHXTxXqYaxAsiWI5g Qs3oXIKmOSKgbVwxkSJgMrOb b2x (more content not included)... [facility] Noteon 12-28-2021 Ambulance Note [id number]#[id number] [facility] ED Clinical Summaryon 2021 ED Clinical Summary [facility] ? Urgent Care [address] [place], [place] [id number] Clinical Summary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 - 99 mg/dL FT POC Subsection Comment on above: Result Comment: Jes lisandra Meter POC Device SN [id number] Invalid Interpretation Code [facility] POC Subsection POC User ID [id number] Invalid Interpretation Code FT POC Subsection POC [...] AM) Normal Negative [facility] UA Auto SS [place].plasma/L[place] um.RBC (Bld) [Mass ratio] 0-3 /HPF Normal [...] [facility] UA Auto SS Urobilinogen Qn (U) [id number] {Sean'U}/dL Normal 0.0 - 1.0 EU/dL [facility] UA Auto SS WBC Auto Ql (U) Negative (08/23/21 7:36 AM) Normal Negative [facility] UA Auto SS WBC LM.HPF (Urine sed) [#/Area] 0-5 /HPF Normal 0-5/HPF [facility] UA Auto SS Melissa 08-15-2021 CNOV Office Visit ([facility] ) -- NEHAL BAIG ([id number]) 1970 M Date Time Provider Department 08/15/21 [...] weight gain: 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 Weight issues one year after divorce in [...] weight loss: Self-directed dieting Have you used iosf-sjn-thhcmih or prescribed weight loss medications? No Have you had a surgical procedure for weight loss? No No flowsheet data found. No flowsheet data found. ALLERGIES: ALLERGIES No Known Allergies CURRENT MEDICATIONS: atorvastatin (LIPITOR) 20 mg tablet Take 1 tablet by mouth daily at bedtime. l (more content not included)... Normal [facility] CNOVon 08-10-2021 CNOV Office Visit ([facility] ) -- NEHAL BAIG ([id number]) 1970 M Date Time Provider Department 08/10/21 9:40 AM SALOME AGUILLON [facility] During your visit today, we recorded the following information about you: Pulse Blood pressure Weight Height 73/minute 127/77 179.6 kg 1.854 m Salome Aguillon APRN.NURSING ASSOCIATE 08/10/2021 10:21 AM Signed This note was created using [employer]. Subjective Nehal Baig is a 50 year [...] 2020. This is a workers comp issue-through [facility] nuria/Dr. Cowan. 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 [...] Negative Negative Ketones, Urine Negative Negative Specific [place], Ur 1.005 - 1.030 1.025 Hemoglobin/Blood,Ur Negative [...] (H) Case Report Surgical Pathology Report Case: [id number] . . . FINAL DIAGNOSIS This result [...] (more content not included)... Normal [facility] BLOOD BANKOrdered By: Kat Salcedo on 08-08-2021 ABO/Rh Retype Interp Negative Invalid Interpretation Code [facility] [place] Subsection CHEMISTRYOrdered By: [employer] on 08-08-2021 Anion gap [Moles/Vol] 11 mmol/L Normal 6 - 16 mEq/L [facility] Remisol Chloride [Moles/Vol] 104 mmol/L Normal 101 - 1 11 mmol/L [facility] Remisol CO2 [Moles/Vol] 25 mmol/L Normal 21 - 31 mmol/L [facility] Remisol Creatinine [Mass/Vol] 0.8 mg/dL Normal 0.5 - 1.3 mg/dL [facility] Remisol GFR/1.73 sq M.predicted among blacks MDRD (S/P/Bld) [Vol rate/Area] mL/min/1.73 m2 Normal >=59mL/min /1.[address] [facility] Chem S GFR/1.73 sq M.predicted among non-blacks MDRD (S/P/Bld) [Vol rate/Area] mL/min/1.73 m2 Normal >=59mL/min /1.[address] [facility] Chem S Glucose [Mass/Vol] 103 mg/dL Normal 55 - 199 mg/dL [facility] Remisol Potassium [Moles/Vol] 4.0 mmol/L Normal 3.5 - 5.3 mmol/L [facility] Remisol Sodium [Moles/Vol] 136 mmol/L Normal 135 - 145 mmol/L [facility] Remisol Urea nitrogen [Mass/Vol] 23 mg/dL High 5 - 21 mg/dL [facility] Remisol HEMATOLOGYOrdered By: Tami Landin on 08-08-2021 Erythrocyte distribution width (RBC) [Ratio] 13.0 % Normal 10.9 - 14.2 % [facility] HemeAutoSS Hematocrit (Bld) [Volume fraction] 40.3 % Normal 37.7 - 49.0 % [facility] HemeAutoSS Hemoglobin (Bld) [Mass/Vol] 14.3 g/dL Normal 13.5 - 17.5 gm/dL [facility] HemeAutoSS MCH (RBC) [Entitic mass] 29.7 pg [...] AM) Normal Negative [facility] UA Auto SS [place].plasma/[place] um.RBC (Bld) [Mass ratio] 0-3 /HPF Normal [...] AM) Invalid Interpretation Code 1.005 - 1.030 [facility] UA Auto SS UA Spec Desc Clean Catch (08/08/21 10:04 AM) Normal [facility] UA Auto SS Urobilinogen Qn (U) [id number] {Sean'U}/dL Normal 0.0 - 1.0 EU/dL [facility] UA Auto SS WBC Auto Ql (U) Negative (08/08/21 10:04 AM) Normal Negative [facility] UA Auto SS WBC LM.HPF (Urine sed) [#/Area] 0-5 /HPF Normal 0-5/HPF [facility] UA Auto SS ANES POSTPROC EVALon 022 ANES POSTPROC EVAL HNO ID: [id number] Author: Lucy Flanagan MD Service: Anesthesiology Author Type: Anesthesiologist Type: Anesthesia Postprocedure Evaluation Filed: 07/31/2021 12:56 PM Note Text: POST ANESTHESIA EVALUATION NOTE : 1970 Procedure Summary Date: 07/31/21 Room / Location: [facility] Endoscopy Anesthesia Start: 1053 Anesthesia Stop: 1145 Procedure: COLONOSCOPY DIAGNOSTIC Diagnosis: Dark stools (OTHER) Scheduled Providers: Jayy Patel MD; Cori Ashley APRN.PALLETISER OPERATOR; Lucy Flanagan MD Responsible Provider: Lucy [...] July 31, 2021 TIME: 12:55 PM CSN: [id number] Normal [facility] ANES PRE-OPon 07-31-2021 ANES PRE-OP HNO ID: [id number] Author: Lucy Flanagan MD Service: Anesthesiology Author Type: Anesthesiologist Type: Anesthesia Preprocedure Evaluation Filed: 07/31/2021 9:50 AM Note Text: ANESTHESIOLOGY DAY OF SURGERY NOTE : 1970 Procedure Information Date/Time: 07/31/21 1030 Scheduled providers: Jayy Patel MD; Cori Ashley APRN.PALLETISER OPERATOR; Lucy Flanagan MD Procedure: COLONOSCOPY DIAGNOSTIC Location: [facility] Endoscopy Estimated body mass index is 53.04 [...] July 31, 2021 TIME: 9:49 AM CSN: [id number] [facility] COLONOSCOPY DIAGNOSTICon [facility] HISTORY PHYSICALon HISTORY PHYSICAL HNO ID: [id number] Author: Jayy Patel MD Service: General Surgery [...] July 31, 2021 TIME: 10:58 AM Normal [facility] SURGICAL PATHOLOGYon 022 CASE REPORT Normal [facility] Comment on above: Order Comment: Speci men Type: TISSUE SPECIMEN [facility] Address: [address] [place] [address] Result Comment: [facility] Pathology Report Case: [id number] Authorizing Provider: Jayy Patel MD Collected: 07/31/2021 11:31 AM Ordering Location: [facility] Endoscopy Received: 07/31/2021 02:15 PM Pathologist: Luis F Quiroz MD Specimen: SIGMOID COLON POLYP Performed By: #### S #### [facility] CLIA [id number] [address] [place] [address] FINAL DIAGNOSIS Normal [facility] Comment on above: Order Comment: Speci men Type: TISSUE SPECIMEN [facility] Address: [address] [place] [address] Result Comment: Sigm oid colon polyp, biopsy: - Tubular adenoma. JEL 08/01/2021 Performed By: #### S #### [facility] CLIA [id number] [address] [place] [address] FINAL PERFORMING LAB Normal [facility] Comment on above: Order Comment: Speci men Type: TISSUE SPECIMEN [facility] Address: [address] [place] [address] Result Comment: Diag nostic interpretation performed at [facility], [address] [place] [address] CLIA# [id number] Numerical Control Tool Programmer: Nehal Cid M.D. Performed By: #### S #### [facility] CLIA [id number] [address] [place] [address] [place] GROSS DESCRIPTION Normal [facility] Comment on above: Order Comment: Speci men Type: TISSUE SPECIMEN [facility] Address: [address] [place] [address] Result Comment: A. S IGMOID COLON POLYP. Received in formalin are multiple pieces of kaufman, soft tissue aggregating to 1.8 x 0.3 x 0.2 cm. Totally submitted in one cassette. SS July 31, 2021 7:11 PM Gross examination performed at [facility], [address] [place] [address] Performed By: #### S #### [facility] CLIA [id number] [address] [place] [address] [place] CBC panel Auto (Bld)on 07-29 Erythrocyte distribution width (RBC) [Ratio] 12.5 % Normal 11.5-15.0 [facility] Comment on above: Order Comment: Speci men Type: URINE SPECIMEN [facility] Address: [address] [place] [address] Performed By: #### L [id number] #### [facility] CLIA [id number] [address] [place] [address] [place] Hematocrit (Bld) [Volume fraction] 39.4 % Normal 39.0-51.0 [facility] Comment on above: Order Comment: Speci men Type: URINE SPECIMEN [facility] Address: [address] [place] [address] Performed By: #### L [id number] #### [facility] CLIA [id number] [address] [place] [address] [place] Hemoglobin (Bld) [Mass/Vol] 13.6 g/dL Normal 13.0-17.0 [facility] Comment on above: Order Comment: Speci men Type: URINE SPECIMEN [facility] Address: [address] [place], [place] [address] Performed By: #### L [id number] #### [facility] CLIA [id number] [address] [place] [address] MCH (RBC) [Entitic mass] 29.3 pg Normal 26.0-34.0 [facility] Comment on above: Order Comment: Speci men Type: URINE SPECIMEN [facility] Address: [address] [place] [address] Performed By: #### L [id number] #### [facility] CLIA [id number] [address] [place] [address] STATES [facility] MCHC (RBC) [Mass/Vol] 34.5 g/dL Normal 30.5-36.0 [facility] Comment on above: Order Comment: Speci men Type: URINE SPECIMEN [facility] Address: [address] [place], [place] [address] Performed By: #### L [id number] #### [facility] CLIA [id number] [address] [place] [address] [place] MCV (RBC) [Entitic vol] 84.9 fL Normal 80.0-100.0 [facility] Comment on above: Order Comment: Speci men Type: URINE SPECIMEN [facility] Address: [address] [place], [place] [address] Performed By: #### L [id number] #### [facility] CLIA [id number] [address] [place] [address] STATES [facility] Nucleated RBC (Bld) [#/Vol] 10*3/uL Normal <0.01 [facility] Comment on above: Order Comment: Speci men Type: URINE SPECIMEN [facility] Address: [address] [place], [place] [address] Performed By: #### L [id number] #### [facility] CLIA [id number] [address] [place] [address] [place] Platelet mean volume (Bld) [Entitic vol] 9.9 fL Normal 9.0-12.7 [facility] Comment on above: Order Comment: Speci men Type: URINE SPECIMEN [facility] Address: [address] [place] [address] Performed By: #### L [id number] #### [facility] CLIA [id number] [address] [place] [address] [place] Platelets (Bld) [#/Vol] 187 10*3/uL Normal 150-400 [facility] Comment on above: Order Comment: Speci men Type: URINE SPECIMEN [facility] Address: [address] [place] [address] Performed By: #### L [id number] #### [facility] CLIA [id number] [address] [place] [address] [place] RBC (Bld) [#/Vol] 4.64 10*6/uL Normal 4.20-6.00 [facility] Comment on above: Order Comment: Speci men Type: URINE SPECIMEN [facility] Address: [address] [place] [address] Performed By: #### L [id number] #### [facility] CLIA [id number] [address] [place] [address] [place] WBC (Bld) [#/Vol] 5.29 10*3/uL Normal 3.70-11.00 [facility] Comment on above: Order Comment: Speci men Type: URINE SPECIMEN [facility] Address: [address] [place] [address] Performed By: #### L [id number] #### [facility] CLIA [id number] [address] [place], [place] [address] [place] Comprehensive metabolic 2000 panelon 07-29-2021 Albumin [Mass/Vol] 4.6 g/dL Normal 3.9-4.9 [facility] Comment on above: Order Comment: Speci men Type: BLOOD SPECIMENOrdering Facility: [facility] Address: [address] [place] [address] Performed By: #### L IPB, 07211-5 ####[facility] [id number] [place] [id number] [place] ALP [Catalytic activity/Vol] 80 U/L Normal 38-113 [facility] Comment on above: Order Comment: Speci men Type: BLOOD SPECIMENOrdering Facility: [facility] Address: [address] [place] [address] Performed By: #### L IPB, 68329-8 ####[facility]IA [id number] [place] [address] [place] ALT [Catalytic activity/Vol] 58 U/L High 10-54 [facility] Comment on above: Order Comment: Speci men Type: BLOOD SPECIMENOrdering Facility: [facility] Address: [address] [place] [address] Performed By: #### L IPB, 81897-6 ####[facility]IA [id number] [place] [address] [place] Anion gap [Moles/Vol] 7 mmol/L Low 9-18 [facility] Comment on above: Order Comment: Speci men Type: BLOOD SPECIMENOrdering Facility: [facility] Address: [address] [place] [address] Performed By: #### L IPB, 09951-3 ####[facility] [id number] [place] [id number] [place] AST [Catalytic activity/Vol] 39 U/L Normal 14-40 [facility] Comment on above: Order Comment: Speci men Type: BLOOD SPECIMENOrdering Facility: [facility] Address: [address] [place] [address] Performed By: #### L IPB, 70289-9 ####[facility] LABCLIA [id number] [place] [address] [place] Bilirubin [Mass/Vol] 0.4 mg/dL Normal 0.2-1.3 [facility] Comment on above: Order Comment: Speci men Type: BLOOD SPECIMENOrdering Facility: [facility] Address: [address] [place] [address] Performed By: #### L IPB, 51224-0 ####[facility] [id number] [place] [id number] [place] Calcium [Mass/Vol] 9.8 mg/dL Normal 8.5-10.2 [facility] Comment on above: Order Comment: Speci men Type: BLOOD SPECIMENOrdering Facility: [facility] Address: [address] [place] [address] Performed By: #### L IPB, 81597-4 ####[facility]IA [id number] [place] [address] [place] Chloride [Moles/Vol] 104 mmol/L Normal 97-105 [facility] Comment on above: Order Comment: Speci men Type: BLOOD SPECIMENOrdering Facility: [facility] Address: [address] [place] [address] Performed By: #### L IPB, 16748-9 ####[facility]IA [id number] [place] [id number] [place] CO2 [Moles/Vol] 28 mmol/L Normal 22-30 [facility] Comment on above: Order Comment: Speci men Type: BLOOD SPECIMENOrdering Facility: [facility] Address: [address] [place], [place] [address] Performed By: #### L IPB, 72333-0 ####[facility]IA [id number] [place] [address] [place] Creatinine [Mass/Vol] 0.98 mg/dL Normal 0.73-1.22 [facility] Comment on above: Order Comment: Speci men Type: BLOOD SPECIMENOrdering Facility: [facility] Address: [address] [place] [address] Performed By: #### L FILIPE, 67674-4 ####[facility] [id number] [place] [id number] [place] ESTIMATED GLOMERULAR FILTRATION RATE 95 mL/min/1.73m??? Normal >=60 [facility] Comment on above: Order Comment: Tesas flores Type: BLOOD SPECIMENOrdering Facility: [facility] Address: [address] [place] [address] Result Comment: Halle mated Glomerular Filtration Rate [...] actual GFR. Performed By: #### L FILIPE, 78547-7 ####[facility]IA [id number] [place] [address] [place] Glucose [Mass/Vol] 120 mg/dL High 74-99 [facility] Comment on above: Order Comment: Tessa flores Type: BLOOD SPECIMENOrdering Facility: [facility] Address: [address] [place] [address] Result Comment: The [place] Diabetes Association (ADA) provides guidance for cutoff [...] Standards of Medical Care in Diabetes 2016, [place] Diabetes Association. Diabetes Care. 2016.39(Suppl 1). Performed By: #### L FILIPE, 90116-4 ####[facility]IA [id number] [place] [address] [place] Potassium [Moles/Vol] 4.7 mmol/L Normal 3.7-5.1 [facility] Comment on above: Order Comment: Speci men Type: BLOOD SPECIMENOrdering Facility: [facility] Address: [address] [place] [address] Performed By: #### Natalie DENT, 67289-2 ####[facility] LABCLIA [id number] [place] [id number] [place] Protein [Mass/Vol] 7.6 g/dL Normal 6.3-8.0 [facility] Comment on above: Order Comment: Speci men Type: BLOOD SPECIMENOrdering Facility: [facility] Address: [address] [place] [address] Performed By: #### Natalie DENT, 12662-7 ####[facility]IA [id number] [place] [phone] [place] Sodium [Moles/Vol] 139 mmol/L Normal 136-144 [facility] Comment on above: Order Comment: Speci men Type: BLOOD SPECIMENOrdering Facility: [facility] Address: [address] [place] [address] Performed By: #### L FILIPE, 89685-4 ####[facility]IA [id number] [place] [phone] [place] Urea nitrogen [Mass/Vol] 18 mg/dL Normal 9-24 [facility] Comment on above: Order Comment: Speci men Type: BLOOD SPECIMENOrdering Facility: [facility] Address: [address] [place], [place] [address] Performed By: #### L FILIPE, 81636-4 ####[facility]CLIA [id number] [place] [address] [place] HGB A1Con 07-29-2021 Average glucose Estimated from glycated hemoglobin (Bld) [Mass/Vol] 117 mg/dL Normal [facility] Comment on above: Order Comment: Tessa flores Type: BLOOD SPECIMENOrdering Facility: [facility] Address: [address] [place] [address] Result Comment: eAG: (Estimated average glucose) is a calculated value from HgbA1c and is door to door sales representative of the average blood glucose level in the last 2-3 month period. Performed By: #### H BA1C ####[facility]IA [id number] [address] [place] HbA1c (Bld) [Mass fraction] 5.7 % High 4.3-5.6 [facility] Comment on above: Order Comment: Tessa flores Type: BLOOD SPECIMENOrdering Facility: [facility] Address: [address] [place] [address] Result Comment: [place] Diabetes Association guidelines indicate that patients with HgbA1c in the range 5.7-6.4% are at increased risk for development of diabetes, and intervention by lifestyle modification may be beneficial. HgbA1c greater or equal to 6.5% is considered diagnostic of diabetes. Performed By: #### H BA1C ####[facility]IA [id number] [place] [address] [place] [facility] LIPID PANEL BASICon 07-30-19 22 Cholesterol [Mass/Vol] 240 mg/dL High <200 [facility] Comment on above: Order Comment: Tessa sandra Type: BLOOD SPECIMENOrdering Facility: [facility] Address: [address] [place] [address] Result Comment: <200 mg/dL, Desirable 200-239 mg/dL, Borderline high >239 mg/dL, High Performed By: #### L IPB, 67147-9 ####[facility] [id number] [address] OF [facility] Cholesterol in HDL [Mass/Vol] 37 mg/dL Low >39 [facility] Comment on above: Order Comment: Tessa sandra Type: BLOOD SPECIMENOrdering Facility: [facility] Address: [address] [place], [place] [address] Result Comment: 40-5 9 mg/dL, Acceptable >59 mg/dL, High: Negative risk factor for coronary heart disease <40 mg/dL, Low: Positive risk factor for coronary heart disease Performed By: #### L FILIPE, 00127-6 ####[facility]CLIA [id number] [place] [phone] [place] [facility] Cholesterol in LDL [Mass/Vol] 175 mg/dL High <100 [facility] Comment on above: Order Comment: Speci men Type: BLOOD SPECIMENOrdering Facility: [facility] Address: [address] [place] [address] Result Comment: <100 mg/dL, Optimal 100-129 mg/dL, Near optimal/above optimal 130-159 mg/dL, Borderline high 160-189 mg/dL, High >189 mg/dL, Very high Secondary prevention optimal LDL Cholesterol levels are recommended to be < 70 mg/dL Performed By: #### Natalie DENT, 87008-6 ####[facility]IA [id number] [address] Cholesterol in LDL/Cholesterol in HDL [Mass ratio] 4.73 {ratio} High <2.54 [facility] Comment on above: Order Comment: Speci men Type: BLOOD SPECIMENOrdering Facility: [facility] Address: [address] [place] [address] Result Comment: Refe rence: 1. National Cholesterol Education Program ATP III Guideline At-A-Glance Quick Desk Reference: National Heart, Lung, and Blood [place]. National Institutes of Health. 2001: NIH Publication No. 01-3305. 2. An International Atherosclerosis Society position paper: global recommendations for the management of dyslipidemia: executive summary, Atherosclerosis. 2014: 232(2):410-413. Performed By: #### L FILIPE, 97834-3 ####[facility]CLIA [id number] [place] [address] [place] [facility] Cholesterol in VLDL [Mass/Vol] 28 mg/dL Normal <30 [facility] Comment on above: Order Comment: Speci men Type: BLOOD SPECIMENOrdering Facility: [facility] Address: [address] [place] [address] Performed By: #### Natalie DENT, 85993-3 ####[facility]CLIA [id number] [place] [phone] [facility] Cholesterol non HDL [Mass/Vol] 203 mg/dL High <130 [facility] Comment on above: Order Comment: Speci men Type: BLOOD SPECIMENOrdering Facility: [facility] Address: [address] [place] [address] Result Comment: <130 mg/dL, Optimal 130-159 mg/dL, Near optimal/above optimal 160-189 mg/dL, Borderline high 190-219 mg/dL, High >219 mg/dL, Very high Secondary prevention optimal non HDL Cholesterol levels are recommended to be <100 mg/dL Performed By: #### L FILIPE, 96451-7 ####[facility]IA [id number] [address] Cholesterol.total/Ch olesterol in HDL [Mass ratio] 6.49 {ratio} High <5.10 [facility] Comment on above: Order Comment: Speci men Type: BLOOD SPECIMENOrdering Facility: [facility] Address: [address] [place] [address] Performed By: #### L FILIPE, 64561-6 ####[facility]CLIA [id number] [place] [phone] [place] FASTING TIME 12. hrs Normal [facility] Comment on above: Order Comment: Speci men Type: BLOOD SPECIMENOrdering Facility: [facility] Address: [address] [place] [address] Performed By: #### L FILIPE, 88819-8 ####[facility]CLIA [id number] [place] [phone] [place] [facility] Triglyceride [Mass/Vol] 140 mg/dL Normal <150 [facility] Comment on above: Order Comment: Speci men Type: BLOOD SPECIMENOrdering Facility: [facility] Address: [address] [place] [address] Result Comment: <150 mg/dL, Normal 150-199 mg/dL, Borderline high 200-499 mg/dL, High >499 mg/dL, Very high Performed By: #### L IPB, 48454-7 ####[facility]CLIA [id number] [place] [address] [place] PSA/PROSTSPECAG SCRNon 07-29 Prostate specific Ag [Mass/Vol] 0.41 ng/mL Normal <2.60 [facility] Comment on above: Order Comment: Speci men Type: BLOOD SPECIMENOrdering Facility: [facility] Address: [address] [place] [address] Result Comment: Tota l PSA test methodology used is the Electrochemiluminescence Immunoassay by [employer]. Total PSA values by differing methodologies cannot be interchanged. Performed By: #### P SAS1 ####[facility] LABCLIA [id number] [address] TSH SerPl-aCncon 07-29-2021 TSH Qn 4.060 m[IU]/L Normal 0.270-4.20 0 [facility] Comment on above: Order Comment: Speci men Type: BLOOD SPECIMENOrdering Facility: [facility] Address: [address] [place] [address] Performed By: #### 3 016-3 ####[facility] LABCLIA [id number] [address] [place] URINALYSIS, REFLEX MICROSCOP ICon 07-29-2021 Bilirubin Ql (U) Negative Normal Negative [facility] Comment on above: Order Comment: Speci men Type: URINE SPECIMEN [facility] Address: [address] [place] [address] Performed By: #### L [id number] #### [facility] CLIA [id number] [facility] [place] Clarity (Unsp spec) Clear Normal Clear [place] [facility] Comment on above: Order Comment: Speci men Type: URINE SPECIMEN Ordering Facility: [facility] Address: [address] [place] [address] Performed By: #### L [id number] #### [facility] CLIA [id number] [address] [place] [address] [place] Color (U) Yellow Normal Yellow [facility] Comment on above: Order Comment: Speci men Type: URINE SPECIMEN Ordering Facility: [facility] Address: [address] [place] [address] Performed By: #### L [id number] #### [facility] CLIA [id number] [address] [place] [address] [place] Glucose Test strip (U) [Mass/Vol] Negative Normal Negative [facility] Comment on above: Order Comment: Speci men Type: URINE SPECIMEN Ordering Facility: [facility] Address: [address] [place] [address] Performed By: #### L [id number] #### [facility] CLIA [id number] [address] [place] [address] [place] Hemoglobin Ql (U) Negative Normal Negative [facility] Comment on above: Order Comment: Speci men Type: URINE SPECIMEN Ordering Facility[facility] Address: [address] [place] [address] Performed By: #### L [id number] #### [facility] CLIA [id number] [address] [place] [address] [place] Ketones Ql (U) Negative Normal Negative [facility] Comment on above: Order Comment: Speci men Type: URINE SPECIMEN Ordering Facility[facility] Address: [address] [place] [address] Performed By: #### L [id number] #### [facility] CLIA [id number] [address] [place] [address] [place] Leukocyte esterase Test strip Ql (U) Negative Normal Negative [facility] Comment on above: Order Comment: Speci men Type: URINE SPECIMEN [facility] Address: [address] [place] [address] Performed By: #### L [id number] #### [facility] CLIA [id number] [address] [place] [address] [place] Nitrite Ql (U) Negative Normal Negative [facility] Comment on above: Order Comment: Speci men Type: URINE SPECIMEN [facility] Address: [address] [place] [address] Performed By: #### L [id number] #### [facility] CLIA [id number] [address] [place] [address] [place] pH (U) 5.5 [pH] Normal 5.0-8.0 [facility] Comment on above: Order Comment: Speci men Type: URINE SPECIMEN [facility] Address: [address] [place] [address] Performed By: #### L [id number] #### [facility] CLIA [id number] [address] [place] [address] [place] Protein (U) [Mass/Vol] Negative Normal Negative [facility] Comment on above: Order Comment: Speci men Type: URINE SPECIMEN [facility] Address: [address] [place] [address] Performed By: #### L [id number] #### [facility] CLIA [id number] [address] [place] [address] [place] Specific gravity (U) [Rel density] 1.025 Normal 1.005-1.03 0 [facility] Comment on above: Order Comment: Speci men Type: URINE SPECIMEN [facility] Address: [address] [place] [address] Performed By: #### L [id number] #### [facility] CLIA [id number] [address] [place] [address] Urobilinogen Ql (U) 0.2 EU/dL Normal 0.2-1.0 EU/dL [facility] Comment on above: Order Comment: Speci men Type: URINE SPECIMEN [facility] Address: [address] [place] [address] Performed By: #### L [id number] #### [facility] CLIA [id number] [address] [place] [address] OF [facility] VITAMIN D 25 HYDROXYon 07-29 25-hydroxyvitamin D3 [Mass/Vol] 29.1 ng/mL Low 31.0-80.0 [facility] Comment on above: Order Comment: Speci men Type: BLOOD SPECIMENOrdering Facility: [facility] Address: [address] [place] [address] Result Comment: Clas sification of 25 [place] Vitamin D status: Deficiency/Insufficiency: < or = 30 ng/ml. Sufficiency/Optimal Levels: 31-80 ng/mL Toxicity: > 100 ng/mL. Test performed by chemiluminescent immunoassay. Performed By: #### V ITD ####[facility] LABCLIA [id number] [address] [place] HISTORY PHYSICALon HISTORY PHYSICAL HNO ID: [id number] Author: Prisca Van PA-C Service: ? Author Type: Physician Circuit Board Inspector Type: HANDP Filed: 07/26/2021 1:52 PM Note Text: PREANESTHESIA CONSULT CLINIC This is a virtual visit. It required patient-provider interaction for the medical decision making as documented below. Patient has been identified by name and date of : Yes Reason for call: PACC visit Accompanied by: Self Patient name: Nehal Baig Scheduled Surgery: colonoscopy 07/31/2021 at [facility] CHIEF COMPLAINT: Patient presents with: Outpatient Colonoscopy [...] fevers. 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 No neurological symptoms or problems. Respiratory: No history of current cough or dyspnea, or pneumonia in the past 6 weeks. +asthma-uses Flovent daily, albuterol 3-5 times/week +JACOBY- BiPAP nightly +lung nodules Cardiovascular: No history of angina, CHF, [place], cardiac surgery or stents. Denies rest pain, [...] (more content not included)... Normal [facility] CNOVon 07-25-2021 CNOV Office Visit ([facility] ) -- NEHAL BAIG ([id number]) 1970 M Date Time Provider Department 4/26/22 9:20 AM SALOME AGUILLON [facility] During your visit today, we recorded the following information about you: Pulse Blood pressure Weight Height 88/minute 136/78 182.3 kg 1.854 m Salome Aguillon APRN.CNP 07/25/2021 5:32 PM Signed This note was created using [employer]. Subjective Nehal Baig is a 50 year [...] further at follow-up Salome Aguillon APRN.LEODAN Aguillon APRN.NURSING ASSOCIATE 07/25/2021 9:43 AM Signed Bowel Preparation Instructions for: Golytely, Nulytely, Trilyte or Coly (more content not included)... Normal [facility] 07-25-2021 LEODANN Telephone ([facility]) -- NEHAL BAIG ([id number]) 1970 Date Time Provider Department 07/25/21 SALOME AGUILLON [facility] During your visit today, we recorded the following information about you: Beatriz Cowan 07/25/2021 11:22 AM Signed [facility] states the Golytely is on backorder. They have the Newlytely in stock. Is it OK to substitute? Please advise. [phone]. Beatriz Cowan July 25, 2021 11:22 AM Salome Agulilon APRN.[facility] 07/25/2021 12:05 PM Signed Called Anthony -pt [...] SALOME AGUILLON on 07/25/21 Normal [facility] CT CHEST WO IVCONon 02-14-20 21 Radiology Result ACTIONABLE Abnormal [facility] Basic Metab w/rfx MGon 08-02 (cont.) Normal [facility] Comment on above: Result Comment: Aver age GFR for 40-49 years old: 99 mL/min/1.73sq m Chronic Kidney Disease: <60 mL/min/1.73sq m Kidney failure: <15 mL/min/1.73sq m eGFR calculated using average adult body mass. Additional eGFR calculator available at: http://www.[employer]/multiple_crcl_2012.htm Performed By: #### C BC, BMPX ####[facility] [address] [place], [place] [address])[phone] Director: Nate Stafford MD Anion gap [Moles/Vol] 11 mmol/L Normal 9-17 [facility] Comment on above: Performed By: #### C BC, BMPX ####[facility] [address] [place], [place] [phone] Director: Nate Stafford MD Calcium [Mass/Vol] 8.5 mg/dL Low 8.6-10.4 [facility] Comment on above: Performed By: #### C BC, BMPX ####[facility] [address] [place], [place] [phone] Director: Nate Stafford MD Chloride [Moles/Vol] 101 mmol/L Normal 98-107 [facility] Comment on above: Performed By: #### C BC, BMPX ####[facility] [address] [place], [place] [phone] Director: Nate Stafford MD CO2 [Moles/Vol] 23 mmol/L Normal 20-31 [facility] Comment on above: Performed By: #### C BC, BMPX ####[facility] [address] [place], [place] [phone] Director: Nate Stafford MD Creatinine [Mass/Vol] 0.62 mg/dL Low 0.70-1.20 [facility] Comment on above: Performed By: #### C BC, BMPX ####[facility] [address] [place], [place] [phone] Director: Nate Stafford MD GFR, Amer >60 Normal >60 [facility] Comment on above: Performed By: #### C BC, BMPX ####[facility] [address] [place], [place] [phone] Director: Nate Stafford MD GFR,non Amer >60 Normal >60 [facility] Comment on above: Performed By: #### C BC, BMPX ####[facility] [address]ks[address] [place], [place] [phone] Director: Nate Stafford MD Glucose [Mass/Vol] 120 mg/dL High 70-99 [facility] Comment on above: Performed By: #### C BC, BMPX ####[facility] [address] [place], [place] [phone])[phone] Director: Nate Stafford MD Potassium [Moles/Vol] 4.3 mmol/L Normal 3.7-5.3 [facility] Comment on above: Performed By: #### C BC, BMPX ####[facility] [address] [place], [place] [phone] Director: Nate Stafford MD Sodium [Moles/Vol] 135 mmol/L Normal 135-144 [facility] Comment on above: Performed By: #### C BC, BMPX ####[facility] [address] [place], [place] [phone] Director: Nate Stafford MD Urea nitrogen [Mass/Vol] 14 mg/dL Normal 6-20 [facility] Comment on above: Performed By: #### C BC, BMPX ####[facility] [address]mt[address] [place], [place] [phone] Director: Nate Stafford MD BUN/CRE Ratio NOT REPORTED Normal 9- [facility] Comment on above: Performed By: #### C BC, BMPX ####[employer] [address] [place], [place] [phone] lab Director: aNte Stafford MD Staging: NOT REPORTED Normal [facility] Comment on above: Performed By: #### C BC, BMPX ####[employer] [address] [place], [place] [phone] lab Director: Nate Stafford MD Basic Metabolic Panel w/ Ref johnny to MGOrdered By: Halina Pathak on 08-02-2020 Anion gap [Moles/Vol] 11 mmol/L 9 - 17 mmol/L [facility] Phone: Calcium [Mass/Vol] 8.5 mg/dL Low 8.6 - 10. 4 mg/dL [employer] Phone: Chloride [Moles/Vol] 101 mmol/L 98 - 10 7 mmol/L [employer] Phone: CO2 [Moles/Vol] 23 mmol/L 20 - 31 mmol/L [employer] Phone: Creatinine [Mass/Vol] 0.62 mg/dL Low 0.70 - 1.20 mg/dL [employer] Phone: GFR >60 >60 mL/min [employer] Phone: GFR Non- >60 >60 mL/min [employer] Phone: GFR/1.73 sq M.predicted MDRD (S/P/Bld) [Vol rate/Area] [employer] Phone: Comment on above: Average GFR for 40-4 9 years old: 99 mL/min/1.73sq m Chronic Kidney Disease: <60 mL/min/1.73sq m Kidney failure: <15 mL/min/1.73sq m eGFR calculated using average adult body mass. Additional eGFR calculator available at: http://www.[employer]/multiple_crcl_2012.htm GFR/1.73 sq M.predicted MDRD (S/P/Bld) [Vol rate/Area] NOT REPORTED [facility] Phone: Glucose [Mass/Vol] 120 mg/dL High 70 - 99 mg/dL [employer] Phone: Interpretation and review of laboratory results Abnormal [employer] Phone: Potassium [Moles/Vol] 4.3 mmol/L 3.7 - 5.3 mmol/L [employer] Phone: Sodium [Moles/Vol] 135 mmol/L 135 - 144 mmol/L [employer] Phone: Urea nitrogen (BldV) [Mass/Vol] 14 mg/dL 6 - 20 mg/dL [employer] Phone: Urea nitrogen/Creatinine (Bld) [Mass ratio] NOT REPORTED [facility] Phone: CBCon 08-02-2020 Erythrocyte distribution width (RBC) [Ratio] 13.0 % Normal 11.8-14.4 [facility] Comment on above: Performed By: #### C BC, BMPX ####[facility] [address] [place], [place] [phone] Lab Director: Nate Stafford MD Hematocrit (Bld) [Volume fraction] 41.8 % Normal 40.7-50.3 [facility] Comment on above: Performed By: #### C BC, BMPX ####[facility] [address] [place], [place] [phone] Lab Director: Nate Stafford MD Hemoglobin (Bld) [Mass/Vol] 13.8 g/dL Normal 13.0-17.0 [facility] Comment on above: Performed By: #### C BC, BMPX ####[facility] [address]ty[address] [place], [place] [phone] Director: Nate Stafford MD MCH (RBC) [Entitic mass] 29.3 pg Normal 25.2-33.5 [facility] Comment on above: Performed By: #### C BC, BMPX ####[facility] [address] [place] [address] [phone] Director: Nate Stafford MD MCHC (RBC) [Mass/Vol] 33.0 g/dL Normal 28.4-34.8 [facility] Comment on above: Performed By: #### C BC, BMPX ####[address] [phone] Director: Nate Stafford MD MCV (RBC) [Entitic vol] 88.7 fL Normal 82.6-102.9 [facility] Comment on above: Performed By: #### C BC, BMPX ####[address] [phone] Director: Nate Stafford MD NRBC Automated 0.0 per 100 WBC Normal 0.0 [facility] Comment on above: Performed By: #### C BC, BMPX ####[address] [phone] Director: Nate Stafford MD Platelet mean volume (Bld) [Entitic vol] 10.9 fL Normal 8.1-13.5 [facility] Comment on above: Performed By: #### C BC, BMPX ####[facility] [address] [place] [address] [phone] Director: Nate Stafford MD Platelets (Bld) [#/Vol] 221 10*3/uL Normal 138-453 [facility] Comment on above: Performed By: #### C BC, BMPX ####[facility] [address] [place] [address] [phone] Director: Nate Stafford MD RBC (Bld) [#/Vol] 4.71 10*6/uL Normal 4.21-5.77 [facility] Comment on above: Performed By: #### C AXEL, BMPX ####[employer] [address] [place], [place] [phone] lab Director: Nate Stafford MD WBC (Bld) [#/Vol] 10.6 10*3/uL Normal 3.5-11.3 [facility] Comment on above: Performed By: #### C AXEL, BMPX ####[employer] [address] [place], [place] [phone] lab Director: Nate Stafford MD CBCOrdered By: Halina Pathak on 08-02-2020 Hematocrit (Bld) [Volume fraction] 41.8 % 40.7 - 50.3 % [employer] Phone: Hemoglobin.gastroint estinal spec 1 Ql (Stl) 13.8 g/dL 13.0 - 17.0 g/dL [employer] Phone: MCH (RBC) [Entitic mass] 29.3 pg 25.2 - 33.5 pg [employer] Phone: MCHC (RBC) [Mass/Vol] 33.0 g/dL 28.4 - 34.8 g/dL [facility] Phone: MCV (RBC) [Entitic vol] 88.7 fL 82.6 - 102.9 fL [facility] Phone: NRBC Automated 0.0 0.0 per 100 WBC [facility] Phone: Platelet distribution width (Bld) [Ratio] 13.0 % 11.8 - 14.4 % [facility] Phone: Platelet mean volume (Bld) [Entitic vol] 10.9 fL 8.1 - 13.5 fL [facility] Phone: Platelets (Bld) [#/Vol] 221 10*3/uL [facility] [employer] Phone: RBC (Bld) [#/Vol] 4.71 10*6/uL 4.21 - 5.77 m/uL [facility] [employer] Phone: WBC (Bld) [#/Vol] 10.6 10*3/uL [facility] [employer] Phone: Trauma Profileon 08-02-2020 (cont.) Normal [facility] Comment on above: Result Comment: Aver age GFR for 40-49 years old: 99 mL/min/1.73sq m Chronic Kidney Disease: <60 mL/min/1.73sq m Kidney failure: <15 mL/min/1.73sq m eGFR calculated using average adult body mass. Additional eGFR calculator available at: http://www.[employer]/multiple_crcl_2011.htm Performed By: #### E RTPF, TROPI ####[facility] [address] [place] [address] Lab Director: Nate Stafford MD Anion gap [Moles/Vol] 10 mmol/L Normal 9-17 [facility] Comment on above: Performed By: #### E RTPF, TROPI ####[facility] [address] [place] [address] Lab Director: Nate Stafford MD Chloride [Moles/Vol] 100 mmol/L Normal 98-107 [facility] Comment on above: Performed By: #### E RTPF, TROPI ####[facility] [address] [place] [address] Lab Director: Nate Stafford MD CO2 [Moles/Vol] 24 mmol/L Normal 20-31 [facility] Comment on above: Performed By: #### E RTPF, TROPI ####[facility] [address] [place] [address] Lab Director: Nate Stafford MD Creatinine [Mass/Vol] 0.71 mg/dL Normal 0.70-1.20 [facility] Comment on above: Performed By: #### E RTPF, TROPI ####[facility] [address] [place] [address] Lab Director: Nate Stafford MD Ethanol [Mass/Vol] mg/dL Normal <10 [facility] Comment on above: Performed By: #### E RTPF, TROPI ####[facility] [address] [place] [address] Lab Director: Nate Stafford MD Ethanol percent <0.010 Normal <0.010 [facility] Comment on above: Performed By: #### E RTPF, TROPI ####[facility] [address] [place] [address] Lab Director: Nate Stafford MD GFR, Amer >60 Normal >60 [facility] Comment on above: Performed By: #### E RTPF, TROPI ####[facility] [address] [place] [address] Lab Director: Nate Stafford MD GFR,non Amer >60 Normal >60 [facility] Comment on above: Performed By: #### E RTPF, TROPI ####[facility] [address] [place] [address] Lab Director: Nate Stafford MD Glucose [Mass/Vol] 109 mg/dL High 70-99 [facility] Comment on above: Performed By: #### E RTPF, TROPI ####[facility] [address] [place] [address] Lab Director: Nate Stafford MD Potassium [Moles/Vol] 4.2 mmol/L Normal 3.7-5.3 [facility] Comment on above: Performed By: #### E RTPF, TROPI ####[facility] [address] [place] [address] Lab Director: Nate Stafford MD Sodium [Moles/Vol] 134 mmol/L Low 135-144 [facility] Comment on above: Performed By: #### E RTPF, TROPI ####[facility] [address] [place] [address] Lab Director: Nate Stafford MD Urea nitrogen [Mass/Vol] 15 mg/dL Normal 6-20 [facility] Comment on above: Performed By: #### E RTBERNIE TROPI ####[facility] [address] [place] [address] Lab Director: Nate Stafford MD Troponinon 08-02-2020 Troponin, High Sens 6 ng/L Normal 0-22 [facility] Comment on above: Result Comment: High Sensitivity Troponin values cannot be compared with other Troponin methodologies. Patients with high levels of Biotin oral intake (i.e >5mg/day) may have falsely decreased Troponin levels. Samples collected within 8 hours of biotin intake may require additional information for diagnosis. Performed By: #### E RTBERNIE TROPI ####[facility] [address] [place] [address] lab Director: Nate Stafford MD Type + Screenon 08-02-2020 Type + Screen Sample Expiration 08/04/2020,2359 Arm Band Number [id number] ABO/Rh(D) A NEGATIVE Antibody Screen NEGATIVE Normal [facility] Comment on above: Performed By: #### T YS ####[facility] [address] [place] [address] Lab Director: Nate Stafford MD CT CERVICAL [...] Johnny Smalls MD 08/01/20 Final result Normal [facility] CT CERVICAL SPINE WO CONTRAS TOrdered By: Ronnie Lund on 08-01-2020 C6-7 cervical spondy losis and degenerative disc disease. Evidence of paracervical spasm. No acute bony abnormalities are noted [employer] Work Phone: EXAMINATION: CT OF T HE [...] intact. The visualized lung apices are clear. [employer] Phone: Francisco, Mhpn Incoming R adiant Results From [employer] - 08/01/2020 7:04 PM EDT EXAMINATION: CT [...] spasm. No acute bony abnormalities are noted [employer] Phone: CT CHEST ABDOMEN PELVIS W CO [...] Elizabeth Shoemaker MD 08/01/20 Final result Normal [facility] CT CHEST ABDOMEN PELVIS W CO [...] to Lung-RADS guidelines. Reference: Radiology. 2017; 284(1):228-43. [employer] Phone: EXAMINATION: CT OF T HE CHEST, [...] hernia. Bones/Soft Tissues: No acute osseous abnormality. [employer] Work Phone: [place], Mhpn Incoming R adiant Results From [employer] - 08/01/2020 7:19 PM EDT EXAMINATION: CT [...] to Lung-RADS guidelines. Reference: Radiology. 2017; 284(1):228-43. [employer] Phone: CT HEAD WO CONTRASTon 2020 CT [...] Jarek Fernández MD 08/01/20 Final result Normal [facility] CT Head WO ContrastOrdered B y: Ronnie Lund on 08-01-2020 1. No acute intracra nial abnormality. [employer] Phone: EXAMINATION: CT OF T HE HEAD [...] clear. SOFT TISSUES/SKULL: The calvarium is intact. [employer] Phone: [place], [employer] Incoming R adiant Results From [employer] - 08/01/2020 7:01 PM EDT EXAMINATION: CT [...] intact. IMPRESSION: 1. No acute intracranial abnormality. [employer] Phone: CT LUMBAR SPINE TRAUMA RECON STRUCTIONon [...] Johnny Smalls MD 08/01/20 Final result Normal [facility] CT THORACIC SPINE TRAUMA REC ONSTRUCTIONon [...] Johnny Smalls MD 08/01/20 Final result Normal [facility] Drug Scr, Abuse, Uron 2020 Amphetamine(s),Ur Negative Normal NEG [facility] Comment on above: Result Comment: (Positive cutoff 1000 ng/mL) Performed By: #### U AMIC, L[place]IS #### [employer] [address] [place] [address] Disc Inspector: Nate Stafford MD Barbiturate(s),Ur Negative Normal NEG [facility] Comment on above: Result Comment: (Positive cutoff 200 ng/mL) Performed By: #### U AMIC, LOUIS #### [facility] [address] [place] [address] Disc Inspector: Nate Stafford MD Benzodiazepine(s) Negative Normal NEG [facility] Comment on above: Result Comment: (Positive cutoff 200 ng/mL) Performed By: #### U AMIC, L[place]IS #### [facility] [address] [place] [address] Disc Inspector: Nate Stafford MD Cannabinoid(s),Ur Negative Normal NEG [facility] Comment on above: Result Comment: (Positive cutoff 50 ng/mL) Performed By: #### U AMIC, L[place] #### [facility] [address] [place] [address] Disc Inspector: Nate Stafford MD Cocaine Metabolite Negative Normal NEG [facility] Comment on above: Result Comment: (Positive cutoff 300 ng/mL) Performed By: #### U AMIC, LOUIS #### [facility] [address] [place] [address] Disc Inspector: Ntae Stafford MD Interpretive Info Assay provides medic al screening only. The absence of expected drug(s) and/or Normal [facility] Comment on above: Result Comment: meta bolite(s) may indicate diluted or adulterated urine, limitations of testing or timing of collection. Testing for legal purposes should be confirmed by another method. To request confirmation of test result, please call the lab within 7 days of sample submission. Performed By: #### U AMIC, LOUIS #### [employer] [address] [place] [address] Disc Inspector: Nate Stafford MD Methadone Ql (U) Negative Normal NEG [facility] Comment on above: Result Comment: (Positive cutoff 300 ng/mL) Performed By: #### U AMIC, L[place]IS #### [facility] [address] [place] [address] Disc Inspector: Nate Stafford MD Opiate(s), Ur Negative Normal NEG [facility] [facility] Comment on above: Result Comment: (Positive cutoff 300 ng/mL) Performed By: #### U AMIC, LOUIS #### [facility] [address] [place] [address] Disc Inspector: Nate Stafford MD Oxycodone, Urine Negative Normal NEG [facility] Comment on above: Result Comment: (Positive cutoff 100 ng/mL) Performed By: #### U AMIC, LOUIS #### [facility] [address] [place] [address] Disc Inspector: Nate Stafford MD Phencyclidine, Ur Negative Normal NEG [facility] Comment on above: Result Comment: (Positive cutoff 25 ng/mL) Performed By: #### U AMIC, LOUIS #### [facility] [address] [place] [address] Disc Inspector: Nate Stafford MD Buprenorphrine, Ur NOT REPORTED Normal NEG [facility] Comment on above: Performed By: #### U AMIC, LOUIS #### [employer] [address] [place] [address] Disc Inspector: Nate Stafford MD MDMA, Urine NOT REPORTED Normal NEG [facility] Comment on above: Performed By: #### U AMIC, LOUIS #### [facility] [address] [place] [address] Disc Inspector: Nate Stafford MD Methamphetamine, Ur NOT REPORTED Normal NEG [facility] Comment on above: Performed By: #### U AMIC, LOUIS #### [facility] [address] [place] [address] Disc Inspector: Nate Stafford MD Propoxyphene,Urine NOT REPORTED Normal NEG [facility] Comment on above: Performed By: #### U AMIC, LOUIS #### [facility] [address] [place] [address] Disc Inspector: Nate Stafford MD Tricyclic antidepressants Screen Ql (U) NOT REPORTED Normal NEG [facility] Comment on above: Performed By: #### U AMIC, LOUIS #### [facility] [address] [place] [address] Disc Inspector: Nate Stafford MD No Panel InformationOrdered By: [...] to body habitus but requires clinical correlation. [employer] Work Phone: EXAMINATION: TWO XRA Y VIEWS [...] may relate to swelling or body habitus. [employer] Phone: Francisco, Mhpn Incoming R adiant Results From [employer] - 08/01/2020 9:41 PM EDT EXAMINATION: TWO [...] to body habitus but requires clinical correlation. [employer] Phone: No Panel InformationOrdered By: Ronnie Lund on 08-01-2020 Degenerative disc di sease at L5-S1. No acute bony abnormalities are seen in the thoracic or lumbar spine [employer] Phone: EXAMINATION: CT OF T HE LUMBAR [...] SOFT TISSUES/RETROPERITONEUM: No paraspinal mass is seen. [employer] Work Phone: Francisco, pn Incoming R adiant Results From [employer] - 08/01/2020 7:11 PM EDT EXAMINATION: CT [...] seen in the thoracic or lumbar spine [employer] Phone: TRAUMA PANELOrdered By: Carlos Pathak on 08-01-2020 [facility] Unable to perform te sting: No specimen received. [employer] Phone: Anion gap [Moles/Vol] 10 mmol/L 9 - 17 mmol/L [employer] Phone: aPTT Coag (Bld) [Time] 23.3 s [employer] Phone: Comment on above: IV Heparin Therapy Range: 48.6-77.8 Blood Bank Specimen BILL FOR SERVICES PERFORMED [employer] Phone: Carboxyhemoglobin Unable to perform te sting: No specimen received. % [employer] Phone: Chloride [Moles/Vol] 100 mmol/L 98 - 10 7 mmol/L [employer] Phone: CO2 [Moles/Vol] 24 mmol/L 20 - 31 mmol/L [employer] Phone: Creatinine [Mass/Vol] 0.71 mg/dL 0.70 - 1.20 mg/dL [employer] Phone: Ethanol [Mass/Vol] mg/dL <10 mg/dL [employer] Phone: Ethanol percent <0.010 <0.010 % [employer] Work Phone: FIO2 Unable to perform te sting: No specimen received. [employer] Work Phone: GFR >60 >60 mL/min [employer] Phone: GFR Non- >60 >60 mL/min [employer] Phone: GFR/1.73 sq M.predicted MDRD (S/P/Bld) [Vol rate/Area] [employer] Phone: Comment on above: Average GFR for 40-4 9 years old: 99 mL/min/1.73sq m Chronic Kidney Disease: <60 mL/min/1.73sq m Kidney failure: <15 mL/min/1.73sq m eGFR calculated using average adult body mass. Additional eGFR calculator available at: http://www.[employer]/multiple_crcl_2012.htm GFR/1.73 sq M.predicted MDRD (S/P/Bld) [Vol rate/Area] NOT REPORTED [employer] Phone: Glucose [Mass/Vol] 109 mg/dL High 70 - 99 mg/dL [employer] Work Phone: hCG Qual PATIENT IS MALE NEGATIVE [employer] Work Phone: HCO3, Venous Unable to perform te sting: No specimen received. 24.0 - 30.0 mmol/L [employer] Phone: Hematocrit (Bld) [Volume fraction] 42.3 % 40.7 - 50.3 % [employer] Phone: Hemoglobin.gastroint estinal spec 1 Ql (Stl) 14.2 g/dL 13.0 - 17.0 g/dL [employer] Phone: INR Coag (Bld) [Relative time] 1.0 {INR} [employer] Phone: Comment on above: Therapeutic Range: Moderate Anticoagulant Intensity: INR = 2.0-3.0 High Anticoagulant Intensity: INR = 2.5-3.5 Interpretation and review of laboratory results Abnormal [employer] Phone: MCH (RBC) [Entitic mass] 29.3 pg 25.2 - 33.5 pg [employer] Phone: MCHC (RBC) [Mass/Vol] 33.6 g/dL 28.4 - 34.8 g/dL [employer] Phone: MCV (RBC) [Entitic vol] 87.2 fL 82.6 - 102.9 fL [employer] Phone: Methemoglobin Unable to perform te sting: No specimen received. % [employer] Phone: Mode Unable to perform te sting: No specimen received. [employer] Phone: Negative Base Excess, Srikanth Unable to perform testing: No specimen received. 0.0 - 2.0 mmol/L [employer] Phone: NOTIFICATION Unable to perform te sting: No specimen received. [employer] Phone: NOTIFICATION TIME Unable to perform te sting: No specimen received. [employer] Phone: NRBC Automated 0.0 0.0 per 100 WBC [employer] Phone: O2 Device/Flow/% Unable to perform te sting: No specimen received. [employer] Phone: O2 Sat, Srikanth Unable to perform te sting: No specimen received. % [employer] Phone: Oxyhemoglobin Unable to perform te sting: No specimen received. 95.0 - 98.0 % [employer] Phone: pCO2, Srikanth Unable to perform te sting: No specimen received. [employer] Phone: pCO2, Srikanth, Temp Adj Unable to perform te sting: No specimen received. [employer] Phone: Peep/Cpap Unable to perform te sting: No specimen received. [employer] Phone: pH, Srikanth Unable to perform te sting: No specimen received. [employer] Phone: pH, Srikanth, Temp Adj Unable to perform te sting: No specimen received. [employer] Phone: Platelet distribution width (Bld) [Ratio] 12.9 % 11.8 - 14.4 % [employer] Phone: Platelet mean volume (Bld) [Entitic vol] 10.1 fL 8.1 - 13.5 fL [employer] Phone: Platelets (Bld) [#/Vol] 220 10*3/uL [employer] Phone: pO2, Srikanth Unable to perform te sting: No specimen received. [employer] Phone: pO2, Srikanth, Temp Adj Unable to perform te sting: No specimen received. [employer] Phone: Positive Base Excess, Srikanth Unable to perform testing: No specimen received. 0.0 - 2.0 mmol/L [employer] Phone: Potassium [Moles/Vol] 4.2 mmol/L 3.7 - 5.3 mmol/L [employer] Phone: PSV Unable to perform te sting: No specimen received. [employer] Phone: PT Coag (PPP) [Time] 10.4 s [employer] Phone: Pt Temp Unable to perform te sting: No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 ASSOCIATE Work Phone: [facility] 07-25-2021 09:10-0400 Diastolic blood pressure 78 mm[Hg] Salome Aguillon APRN.NURSING ASSOCIATE Work Phone: [facility] 07-25-2021 09:10-0400 Heart rate 88 /min Salome Aguillon APRN.NURSING ASSOCIATE Work Phone: [facility] 07-25-2021 09:10-0400 SaO2% (BldA) [Mass fraction] 98 % Salome Aguillon APRN.NURSING ASSOCIATE Work Phone: [facility] 07-25-2021 09:10-0400 Systolic blood pressure 136 mm[Hg] Salome Aguillon APRN.NURSING ASSOCIATE Work Phone: [facility] 08-02-2020 09:45-0400 SaO2% (BldA) [Mass fraction] 93 % Santo Huynh MD [facility] Work Phone: 08-02-2020 07:14-0400 Body temperature 98.2 [degF] Santo Huynh MD [facility] Work Phone: 08-02-2020 07:14-0400 Diastolic blood pressure 95 mm[Hg] Santo Huynh MD [employer] Work Phone: 08-02-2020 07:14-0400 Heart rate 93 /min Santo Huynh MD [employer] Work Phone: 08-02-2020 07:14-0400 Respiratory rate 20 /min Santo Huynh MD [employer] Work Phone: 08-02-2020 07:14-0400 Systolic blood pressure 132 mm[Hg] Santo Huynh MD [employer] Work Phone: 08-01-2020 14:54-0400 Body height 185.4 cm Santo Huynh MD [facility] Phone: 08-01-2020 14:54-0400 Body mass index (BMI) [Ratio] 51.72 kg/m2 Santo Huynh MD [employer] Work Phone: 08-01-2020 14:54-0400 Body weight 177.81 kg Santo Huynh MD [facility] Phone: Encounters Encounter Date Encounter Type Care Provider Facility Start: 04-22-2023 End: 04-23-2023 ambulatory Brenton Pena MD Facility: [facility] Start: 04-11-2023 End: 04-11-2023 ambulatory HUAN COWAN [facility] Other Start: 04-11-2023 Office outpatient vi sit 15 minutes Siri JOHANSEN [facility] Start: 04-03-2023 End: 04-04-2023 ambulatory HUAN COWAN Not Available Start: 03-07-2023 End: 03-08-2023 ambulatory Huan Cowan Facility:[facility] Start: 03-07-2023 End: 03-07-2023 ambulatory GENETIC PHYSICIAN-C Salome Aguillon Work Phone: [facility] Work Phone: Start: 03-07-2023 End: 03-07-2023 Departed Referred GENETIC PHYSICIAN-Krissy Aguillon Work Phone: [facility] Work Phone: Start: 03-07-2023 End: 03-07-2023 Patient encounter procedure Huan Cowan [facility] Start: 03-04-2023 End: 03-05-2023 ambulatory Brenton Pena MD Facility:[facility] Start: 02-26-2023 End: 02-27-2023 ambulatory Huan Cowan [facility] Start: 02-26-2023 End: 02-26-2023 Patient encounter procedure Huan Cowan [facility] Start: 02-25-2023 End: 02-26-2023 ambulatory Huan Cowan [facility] Start: 02-25-2023 End: 02-25-2023 Patient encounter procedure Huan Cowan [facility] Start: 02-04-2023 Registered Recurring GENETIC PHYSICIAN-Krissy Aguillon Work Phone: [facility] Work Phone: Start: 02-04-2023 Nutrition therapy Kandis Amado [facility] Start: 02-04-2023 End: 02-05-2023 ambulatory [facility] Other Start: 01-28-2023 End: 01-29-2023 ambulatory Brenton Pena MD Facility:[facility] Start: 01-22-2023 ambulatory Huan Cowan Facility: [facility] Start: 01-17-2023 Office outpatient ne w 45 minutes Siri Kelly [facility] [employer] [facility] Start: 01-17-2023 End: 01-17-2023 ambulatory Siri Quezada Facility:[facility] Start: 01-17-2023 End: 01-17-2023 ambulatory GENETIC PHYSICIAN-C Salome Aguillon Work Phone: [facility] Work Phone: Start: 01-17-2023 End: 01-17-2023 Patient encounter procedure GENETIC PHYSICIAN-C Salome Aguillon Work Phone: [facility] Work Phone: Start: 01-17-2023 End: 01-17-2023 ambulatory GENETIC PHYSICIAN-C Salome Aguillon Work Phone: [facility] Work Phone: Start: 01-17-2023 End: 01-17-2023 Patient encounter procedure GENETIC PHYSICIAN-C Salome Aguillon Work Phone: [facility] Work Phone: Start: 01-09-2023 End: 01-10-2023 ambulatory CREATIVE PERFUMER Vonnie Guerrero Facility:[facility] Start: 12-16-2022 Office outpatient ne w 20 minutes Kelly Yi [facility] Start: 12-16-2022 End: 12-16-2022 ambulatory Salome Aguillon [facility] Start: 12-16-2022 End: 12-16-2022 Patient encounter procedure GENETIC PHYSICIAN-C Salome Aguillon Work Phone: [facility] Work Phone: Start: 2022 Refill Salome alvarenga FRENCH FOLDER.NURSING ASSOCIATE Work Phone: [facility] Comment on above: Refill Request Start: 07-10-2022 Refill [facility] Provider [facility] Comment on above: Refill Request Start: 07-09-2022 Refill Salome alvarenga FRENCH FOLDER.NURSING ASSOCIATE Work Phone: [facility] Comment on above: Refill Request Start: 07-04-2022 End: 07-04-2022 ambulatory [facility] Facility[facility] Start: 05-28-2022 Telephone encounter Salome brown APRN.NURSING ASSOCIATE Work Phone: [facility] Comment on above: Results Start: 05-26-2022 ambulatory SALOME AGUILLON [facility] Start: 05-21-2022 End: 05-21-2022 ambulatory SALOME AGUILLON Facility:[facility] Start: 05-21-2022 End: 05-21-2022 Patient encounter procedure Salome Aguillon APRN.NURSING ASSOCIATE Work Phone: [facility] Comment on above: Morbid obesity with BMI of 50.0-59.9, adult (HCC) (Primary Dx); Vitamin D deficiency; Essential hypertension; Mixed hyperlipidemia; Impaired fasting blood sugar; Chronic pain due to trauma; Proteinuria, unspecified type Start: 05-19-2022 End: 05-20-2022 ambulatory [facility]OME [facility] Start: 05-03-2022 End: 05-03-2022 ambulatory ELENA ADAMS Facility:[facility] Start: 04-20-2022 End: 04-21-[address] KINGSLEY HERRERA Facility: Start: 04-04-2022 End: 04-04-2022 ambulatory Joel Bledsoe Facility:[facility] Start: 03-06-2022 ambulatory Salome alvarenga APRN.NURSING ASSOCIATE Work Phone: [facility] Comment on above: PHMA/Care Gap Outrea ch (BP) Start: 02-15-2022 End: 02-15-2022 Patient encounter procedure Salome Aguillon APRN.NURSING ASSOCIATE Work Phone: [facility] Comment on above: Morbid obesity with BMI of 50.0-59.9, adult (HCC) (Primary Dx); Essential hypertension; Mixed hyperlipidemia; Lung nodules; Chronic pain due to trauma; History of colon polyps; S/P shoulder replacement, left; Obstructive sleep apnea syndrome; Fatty liver; Impaired fasting blood sugar Start: 02-15-2022 End: 02-15-2022 ambulatory Salome Aguillon APRN.NURSING ASSOCIATE Work Phone: [facility] Comment on above: BLOOD PRESSURE Start: 02-15-2022 E-mail encounter fro m caregiver Salome Aguillon FRENCH FOLDER.NURSING ASSOCIATE Work Phone: [facility] Start: 02-10-2022 End: 02-11-2022 ambulatory SALOME AGUILLON Facility:[facility] Start: 01-02-2022 End: 01-02-2022 Patient encounter procedure Huan Cowan [facility] Start: 12-27-2021 End: 12-27-2021 ambulatory [facility] Facility:[facility] Start: 12-11-2021 Get Medical Advice [facility] Provider I nternal Medicine [place] Comment on above: Lisinopril refill Start: 11-29-2021 End: 11-29-2021 ambulatory [facility] Facility:[facility] Start: 11-16-2021 End: 11-18-2021 ambulatory [facility] Facility:[facility] Start: 11-15-2021 End: 11-15-2021 [facility] Start: 11-15-2021 End: 11-15-2021 Patient encounter procedure Salome Aguillon EZE.NURSING ASSOCIATE Work Phone: [facility] Comment on above: Morbid obesity with BMI [...] Start: 09-22-2021 End: 09-22-2021 ambulatory SALOME PAL Facility:[facility] Start: 09-19-2021 End: 09-19-2021 ambulatory Brisa Edmondson RDMS Radiology Comment on above: Radiology US Start: 09-19-2021 End: 09-19-2021 Patient encounter procedure Brisa Edmondson RDMS [facility] Comment on above: SOB (shortness of br eath) on exertion Start: 09-19-2021 End: 09-19-2021 Subsequent hospital visit by physician [facility] [place] [place] [facility] Comment on above: Elevated liver enzym es [R74.8] Stenosis of carotid artery, unspecified laterality [I65.29] Start: 09-18-2021 End: 09-18-2021 Subsequent hospital visit by physician [facility] RADIO CT [facility] Comment on above: Lung nodules [R91.8] [...] with patient Anh Howard MD Work Phone: [facility] Start: 08-30-2021 End: 08-30-2021 ambulatory ANH HOWARD Facility:[facility] Start: 08-30-2021 End: 08-30-[address] Nutrition Therapy Comment on above: Morbid obesity with BMI of 50.0-59.9, adult (HCC); Mixed hyperlipidemia; Essential hypertension; Arthralgia of multiple sites; Prediabetes; Obstructive sleep apnea syndrome; Abnormal weight gain; Fatty metamorphosis of liver Start: 08-30-2021 End: 08-30-2021 Telemedicine consultation with patient Tarsha Jamison RD [facility] Start: 08-23-2021 End: 08-23-2021 Admission to same day surgery center Huan Cowan [facility] Start: 08-15-2021 End: 08-15-2021 ambulatory SALOME AGUILLON Facility:[facility] Start: 08-15-2021 End: 08-15-2021 Patient encounter procedure Anh Howard MD Work Phone: Endocrinology Comment on above: Morbid obesity with BMI of 50.0-59.9, adult (HCC) (Primary Dx); Mixed hyperlipidemia; Essential hypertension; Arthralgia of multiple sites; Prediabetes; Obstructive sleep apnea syndrome; Abnormal weight gain; Fatty metamorphosis of liver Start: 08-10-2021 End: 08-10-2021 ambulatory [facility] Facility:[facility] Start: 08-10-2021 End: 08-10-2021 Patient encounter procedure Salome Aguillon APRN.NURSING ASSOCIATE Work Phone: [facility] Comment on above: Routine physical exa mination (Primary Dx); Mixed hyperlipidemia; Morbid obesity with BMI of 50.0-59.9, adult (HCC); Elevated liver enzymes; Stenosis of carotid artery, unspecified laterality; SOB (shortness of breath) on exertion; Essential hypertension; Lung nodules; Environmental allergies; Chronic pain after traumatic injury; Impaired fasting blood sugar Start: 08-10-2021 End: 08-10-2021 Physical examination Salome Aguillon APRN.NURSING ASSOCIATE Work Phone: [facility] Start: 08-08-2021 End: 08-08-2021 Patient encounter procedure Huan Cowan [facility] Start: 07-31-2021 End: 07-31-2021 Subsequent hospital visit by physician Jayy Patel MD Work Phone: [facility] Endoscopy Comment on above: Dark stools [R19.5] Start: 07-29-2021 End: 07-30-2021 ambulatory SALOME [facility] Start: 07-29-2021 Encounter for other specified special examinations ANH HOWARD [facility] Start: 07-26-2021 End: 07-26-2021 [facility] Start: 07-26-2021 Encounter for other preprocedural examination ANH HOWARD [facility] Start: 07-26-2021 End: 07-26-2021 Admission to [address] Start: 07-26-2021 End: 07-26-2021 ambulatory [facility]est[facility] Comment on above: Pre-op evaluation (P rimary Dx); Screen for colon cancer; Essential hypertension; Mixed hyperlipidemia; Obstructive sleep apnea syndrome; Shortness of breath; Lung nodules; Morbid obesity with BMI of 50.0-59.9, adult ([facility]) Start: 07-26-2021 End: 07-26-2021 Preprocedural examination done Pacc Virtual Pre Anesthesia Start: 07-25-2021 Telephone encounter Salome brown APRN.NURSING ASSOCIATE Work Phone: Internal Medicine [facility] Comment on above: Medication Problem Start: 07-25-2021 End: 07-25-2021 ambulatory SALOME PAL Facility:[facility] Start: 07-25-2021 End: 07-25-2021 Patient encounter procedure Salome Aguillon APRN.NURSING ASSOCIATE Work Phone: Internal Medicine [facility] Comment on above: Essential hypertensi on (Primary Dx); Mild persistent asthma without complication; Screening for colon cancer; Bowel habit changes; Dark stools; Morbid obesity with BMI of 50.0-59.9, adult ([facility]) Start: 06-27-2021 ambulatory Salome alvarenga APRN.NURSING ASSOCIATE Work Phone: Internal Medicine [facility] Comment on above: PHMA/Care Gap Outrea ch (BP, colo) Start: 02-13-2021 End: 02-13-2021 Subsequent hospital visit by physician [facility] Work Phone: Radiology Comment on above: Lung nodules [R91.8] Start: 08-01-2020 End: 08-02-2020 Evaluation and management of inpatient SALOME AGUILLON [facility] Start: 08-01-2020 End: 08-02-2020 Evaluation and management of inpatient Santo Huynh MD [facility] 1D Burn Unit Comment on above: [...] Clinician Start: 01-17-2023 X-ray of cervical spine GENETIC PHYSICIAN-C Salome Aguillon Work Phone: Start: 01-17-2023 X-ray of lumbar spin e, six views including bending views GENETIC PHYSICIAN-C Salome Aguillon Work Phone: Start: 12-16-2022 X-ray of left ankle GENETIC PHYSICIAN- C Salome Aguillon Work Phone: Start: 09-19-2021 Echo tthrc r-t 2d w/wom-mode compl spec&colr d Salome Amaliacecil LOO.NURSING ASSOCIATE Work Phone: Start: 09-19-2021 Duplex scan extracra nial art compl bi study Salome Amaliacecil PORTILLON.NURSING ASSOCIATE Work Phone: Start: 09-19-2021 Us abdominal real ti me w/image limited Salome Amaliacecil HONGNURSING ASSOCIATE Work Phone: Start: 09-18-2021 Ct thorax w/o contra st material Trey Sharma MD Work Phone: Start: 08-23-2021 Prosthetic total arthroplasty of left shoulder Huan Cowan Start: 08-09-2021 Adult depression scr eening assessment Salome Aguillon FRENCH FOLDER.NURSING ASSOCIATE Work Phone: Start: 07-31-2021 Colonoscopy flx dx w /collj spec when pfrmd Salome Amaliacecil PORTILLON.NURSING ASSOCIATE Work Phone: Start: 07-31-2021 Colonoscopy Jayy fontanez MD Work Phone: Start: 02-13-2021 Ct thorax w/o contra st material Salome Aguillon APRN.NURSING ASSOCIATE Work Phone: Start: 08-06-2020 Adult depression scr eening assessment Salome Aguillon APRN.NURSING ASSOCIATE Work Phone: Start: 08-02-2020 BASIC METABOLIC PANE [...] head/brain w/o co ntrast material Salome Aguillon APRN.NURSING ASSOCIATE Work Phone: Start: 12-17-2019 Radex shoulder compl ete minimum 2 views Salome Aguillon APRN.NURSING ASSOCIATE Work Phone: Colonoscopy Huan Cowan H/O: vasectomy Huan Cowan Comment on above: 2013 Plan of Treatment Date Care Activity Detail Author Start: 08-19-2027 LIPID SCREEN LIPID SCREEN [facility] Start: 05-19-2027 LIPID SCREEN LIPID SCREEN [facility] Start: 02-10-2027 LIPID SCREEN LIPID SCREEN [facility] Start: 07-29-2026 LIPID SCREEN LIPID SCREEN [facility] Start: 11-16-2025 DTaP/Tdap/Td vaccine (2 - Td) DTaP/Tdap/Td vaccine (2 - Td) [employer] Work Phone: Start: 11-16-2025 Urine microalbumin profile DTA P,TDAP,TD (2 - Td or Tdap) [facility] Start: 08-18-2025 DIABETES SCREEN DIABETES SCREEN [facility] Start: 05-19-2025 DIABETES SCREEN DIABETES SCREEN [facility] Start: 02-10-2025 DIABETES SCREEN DIABETES SCREEN [facility] Start: 11-22-2024 LIPID SCREEN LIPID SCREEN [facility] Start: 07-31-2024 Colonoscopy COLONOSCOPY [facility] Start: 07-31-2024 COLORECTAL CANCER SCREENING COLORECTAL CANCER SCREENING [facility] Start: 07-29-2024 DIABETES SCREEN DIABETES SCREEN [facility] Start: 08-21-2023 ANNUAL PCP TEAM BELT CLEANER JIGAR DISEASE VISIT ANNUAL PCP TEAM CHRONIC DISEASE VISIT [facility] Start: 08-21-2023 BP CONTROLLED (<130/80) BP CONTROLLE D (<130/80) [facility] Start: 08-21-2023 COVID-19 VACCINE (#1) COVID-19 VACCI NE (#1) [facility] Comment on above: Postponed from 04/05 (Declined at this time) Start: 05-21-2023 ANNUAL PCP TEAM BELT CLEANER JIGAR DISEASE VISIT ANNUAL PCP TEAM CHRONIC DISEASE VISIT [facility] Start: 02-15-2023 ANNUAL PCP TEAM BELT CLEANER JIGAR DISEASE VISIT ANNUAL PCP TEAM CHRONIC DISEASE VISIT [facility] Start: 11-30-2022 Influenza vaccination C [facility] Start: 11-22-2022 DIABETES SCREEN DIABETES SCREEN [facility] Start: 11-15-2022 ANNUAL PCP TEAM BELT CLEANER JIGAR DISEASE VISIT ANNUAL PCP TEAM CHRONIC DISEASE VISIT [facility] Start: 11-15-2022 BP CONTROLLED (<130/80) BP CONTROLLE D (<130/80) [facility] Start: 10-26-2022 BP CONTROLLED (<130/80) BP CONTROLLE D (<130/80) [facility] Start: 2022 SHINGRIX VACCINE (1 of 2) ROMERO GRIX VACCINE (1 of 2) [facility] Start: 09-28-2022 Influenza vaccination INFLUENZA (#1) [facility] Comment on above: Postponed from 11/30 (Declined at this time) Start: 08-15-2022 BP CONTROLLED (<130/80) BP CONTROLLE D (<130/80) [facility] Start: 08-10-2022 ANNUAL PCP TEAM BELT CLEANER JIGAR DISEASE VISIT ANNUAL PCP TEAM CHRONIC DISEASE VISIT [facility] Start: 08-10-2022 BP CONTROLLED (<130/80) BP CONTROLLE D (<130/80) [facility] Start: 08-10-2022 COVID-19 VACCINE (#1) COVID-19 VACCI NE (#1) [facility] Comment on above: Postponed from 10/03 (Declined at this time) Postponed from 04/05 (Declined at this time) Start: 08-09-2022 Adult depression scr eening assessment DEPRESSION SCREENING [facility] Start: 07-31-2022 Colonoscopy COLONOSCOPY [facility] Start: 07-31-2022 COLORECTAL CANCER SCREENING COLORECTAL CANCER SCREENING [facility] Start: 07-25-2022 ANNUAL PCP TEAM BELT CLEANER JIGAR DISEASE VISIT ANNUAL PCP TEAM CHRONIC DISEASE VISIT [facility] Start: 05-28-2022 End: 07-28-2022 Protein/Creatinine [Mass Ratio] in Urine PROTEIN CREATININE RATIO Lab Routine Proteinuria, unspecified type Expected: 05/28/2022, Expires: 07/28/2022 [facility] Work Phone: Comment on above: Expected: 05/28/2022 , Expires: 07/28/2022 Start: 11-30-2021 Influenza vaccination C [facility] Start: 10-19-2021 ANNUAL PCP TEAM BELT CLEANER JIGAR DISEASE VISIT ANNUAL PCP TEAM CHRONIC DISEASE VISIT [facility] Start: 08-06-2021 Adult depression scr eening assessment DEPRESSION SCREENING [facility] Start: 08-02-2021 Creatinine measurement Creatinine mo susanne [facility] [employer] Phone: Start: 08-02-2021 Potassium monitoring Potassium monit oring [facility] [employer] Phone: Start: 11-30-2020 Influenza vaccination C [facility] Start: 2017 COLOGUARD (FIT-DNA) COLOGUARD (FIT-D NA) [facility] Start: 2017 Colonoscopy COLONOSCOPY [facility] Start: 2017 COLORECTAL CANCER SCREENING COLORECTAL CANCER SCREENING [facility] Start: [address] COLONOGRAPHY [facility] Start: 2017 FECAL OCCULT BLOOD FECAL OCCULT BLOO D [facility] Start: 2017 SIGMOIDOSCOPY SIGMOIDOSCOPY [facility] Start: 2012 Diabetes screen Diabetes screen [facility] [employer] Phone: Start: 10-04-1991 Urine microalbumin profile DTAP,TDAP ,TD (1 - Tdap) [facility] Start: 1990 BP CONTROLLED (<130/80) BP CONTROLLE D (<130/80) [facility] Start: 1988 COVID-19 Vaccine (1) COVID-19 Vaccin e (1) [employer] Work Phone: Start: 10-04-1987 HIV screening HIV screen [facility] Work Phone: Start: 1982 Lipid panel Lipid screen [facility] Work Phone: Start: 1977 COVID-19 VACCINE (1) COVID-19 VACCIN E (1) [facility] Start: 1972 HEPATITIS B (1 of 3 - 3-dose series) HEPATITIS B (1 of 3 - 3-dose series) [facility] Start: 1972 Hepatitis C screening Hepatitis C sc reen [facility] Work Phone: End: 07-25-2022 COLONOSCOPY DIAGNOSTIC COLONOSCOPY DIAGNOSTIC Endoscopy Routine Dark stools 1 Occurrences starting 07/25/2021 until 07/25/2022 [facility] Work Phone: Comment on above: 1 Occurrences starti ng 07/25/2021 until 07/25/2022 Ct thorax w/o contra st material CT CHEST WO IVCON Radiology Timed Lung nodules 09/18/2021 12:09 PM EDT [facility] Work Phone: End: 09-09-2022 Duplex scan extracranial art compl bi study US CAROTID BILAT Radiology Routine Stenosis of carotid artery, unspecified laterality 1 Occurrences starting 08/10/2021 until 09/09/2022 [facility] Work Phone: Comment on above: 1 Occurrences starti ng 08/10/2021 until 09/09/2022 End: 08-10-2022 Echocardiography ECHO Cardiology Routine SOB (shortness of breath) on exertion 1 Occurrences starting 08/10/2021 until 08/10/2022 [facility] Work Phone: Comment on above: 1 Occurrences starti ng 08/10/2021 until 08/10/2022 EKG 12 Lead EKG 12 Lead ECG STAT 08/01/2020 9:26 PM EDT [employer] Work Phone: Oxygen therapy [[facility] Data Set] Initiate Oxygen Therapy Protocol Respiratory Care Routine Daily until discontinued starting 08/02/2020 [employer] Work Phone: Comment on above: Daily until disconti nued starting 08/02/2020 SURGICAL PATHOLOGY [facility] Work Phone: Comment on above: Release Upon Maddyin coreen for 1 Occurrences starting 07/31/2021, 1 completed End: 09-09-2022 Us abdominal real time w/image limited US ABD RT UPPER QUADRANT Radiology Routine Elevated liver enzymes 1 Occurrences starting 08/10/2021 until 09/09/2022 [facility] Work Phone: Comment on above: 1 Occurrences starti ng 08/10/2021 until 09/09/2022 End: 06-20-2023 US KIDNEY/BLADDER US KIDNEY/BLADDER Radiology Routine Proteinuria, unspecified type 1 Occurrences starting 05/21/2022 until 06/20/2023 [facility] Work Phone: Comment on above: 1 Occurrences starti ng 05/21/2022 until 06/20/2023 [facility] Immunizations Immunization Date Immunization Notes Care Provider Norma robles 11-17-2015 tetanus toxoid, reduced diphtheria toxoid, and acellular pertussis vaccine, adsorbed Huan Cowan [facility] 02-07-2015 influenza virus vaccine, unspecified formulation Huan Cowan [facility] 02-07-2015 influenza, seasonal, injectable Salome Aguillon FRENCH FOLDER.NURSING ASSOCIATE Work Phone: [facility] NEGATED: Highlighted row has not occurred!01-09-2023 influenza virus vaccine, unspecified formulation Huan Cowan [facility] Payers Date Payer Category Payer Unknown [id number] 2022 Blue Cross Blue Shield [id number] 2021 Self-pay 2021 Unknown [id number] 2020 Unknown [facility] [id number] 2020-Present [phone] [place] [id number] [id number] .[id number] 2020 Unknown [id number]. 1.13.159.2 .7.3.700192.315 2020 Unknown [id number] 2020 Unknown [id number] 1.2.840.208182.1.13.239.2 .7.3.490386.315 2020 Private Health Insurance xxx [id number] 1.2.840.714077.1.13.159.2 .7.3.707640.315 2020 Private Health Insurance [id number] 2019 Private Health Insurance 1.2 .840.611937.1.13.159.2 .7.3.382625.315 1972 Unknown [id number] 2.16.840.1.365673.3.579.2 .175 1972 Unknown [id number] 2.16.840.1.264573.3.579.2 .593 1972 Unknown [id number] 2.16.840.1.735290.3.579.2 .8 1972 Unknown [id number] 2.16.840.1.630500.3.579.2 .8 1972 Unknown [id number] 2.16.840.1.525981.3.579.2 .1972 Unknown [id number] 2.16.840.1.958010.3.579.2 .1972 Unknown [id number] 2.16.840.1.706358.3.579.2 .1972 Unknown [id number] 2.16.840.1.563879.3.579.2 .1972 Unknown [id number] 2.16.840.1.625560.3.579.2 .1259 1972 Unknown [id number] 2.16.840.1.436405.3.579.2 .1258 1972 Unknown [id number] 2.16.840.1.072774.3.579.2 .1258 1972 Unknown [id number] 2.16.840.1.398230.3.579.2 .1259 1972 Unknown [id number] 2.16.840.1.087439.3.579.2 .1258 1972 Unknown [id number] 2.16.840.1.806451.3.579.2 .1258 1972 Unknown [id number] 2.16.840.1.267926.3.579.2 .1258 1972 Unknown [id number] 2.16.840.1.283794.3.579.2 .1258 1972 Unknown [id number] 2.16.840.1.270416.3.579.2 .1972 Unknown [id number] 2.16.840.1.991340.3.579.2 .1972 Unknown [id number] 2.16840.1.232222.3.579.2 .1972 Unknown [id number] 2.16840.1.938466.3.579.2 .1972 Unknown [id number] 2.16.840.1.419033.3.579.2 .1972 Unknown [id number] 2.16.840.1.739423.3.579.2 .1972 Unknown [id number] 2.16.840.1.832457.3.579.2 .1972 Unknown [id number] 2.16840.1.992265.3.579.2 .727 1959 Unknown [id number] Private Health Insurance [facility] [id number] Unknown [id number] 2.16.840.1.018480.3.579.2 .531 Unknown [id number] 2.16.840.1.701272.3.579.2 .531 Unknown [id number] 2.16840.1.516503.3.579.2 .531 Unknown [id number] 2.16.840.1.752015.3.579.2 .531 Unknown [id number] 2.16.840.1.278442.3.579.2 .531 Social History Date Type Detail Facility Start: 08-02-2020 End: 01-09-2023 Tobacco smoking status NHIS Never smoker [facility] Comment on above: denies current use Start: 02-07-2015 End: 08-02-2020 Tobacco use and exposure Never used [employer] Start: 08-02-2020 Alcohol intake Ex-drinker (finding) [facility] Phone: Start: 1970 Sex Assigned At Not on file [facility] Phone: Start: 11-14-2019 End: 11-15-2021 Exposure to SARS-CoV-2 (event) Not sure [employer] Start: 12-14-2019 End: 03-30-2021 Alcohol intake Current drinker of alcohol (finding) [facility] Start: 08-06-2020 End: 08-20-2022 History SDOH Alcohol Frequency 1 [facility] Start: 08-06-2020 End: 08-20-2022 History SDOH Alcohol Std Drinks 98 [facility] Start: 10-08-2014 History SDOH Alcohol Comment Rare [facility] Start: 08-06-2020 End: 08-20-2022 History SDOH Social Connections Phone 5 [facility] Start: 08-06-2020 End: 08-20-2022 History SDOH Social Connections Get Together 2 [facility] Start: 08-06-2020 End: 08-20-2022 History SDOH Physical Activity MPS 3 [facility] Start: 08-06-2020 Education 15 [facility] Tobacco [facility] Comment on above: denies current use Start: 11-23-2019 End: 08-17-2021 Sex Assigned At Male [facility] Start: 1970 Sex Assigned At Male C [facility] Tobacco smoking status No Smokin g Status Entered [facility] Start: 01-31-2022 End: 02-10-2022 Exposure to SARS-CoV-2 (event) Unable to assess [facility] Start: 08-20-2022 History SDOH Alcohol Std Drinks 0 [facility] Start: 08-20-2022 History SDOH Physica l Activity DPW 4 [facility] Start: 11-23-2019 End: 08-17-2021 History of Social function [facility] Start: 02-14-2021 Gender identity Identifies as male gender (finding) [facility] Start: 02-14-2021 Sexual orientation Heterosexual (javan eason) [facility] Do you belong to any clubs or organizations such as jainism groups, unions,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 60-74 MINUTES Salome Aguillon, FRENCH FOLDER.NURSING ASSOCIATE [address] [place] [address] Referral ID Status Reason Start Date Expiration Date Visits Requested Visits Authorized [id number] Pending Review PCP Requested Referral 05/21/2022 05/21/2023 1 1 Specialty Diagnoses / Procedures Referred By Contac t Referred To Contact US IMAGING Diagnoses Proteinuria, unspecified type Procedures US KIDNEY/BLADDER US RETROPERITONEAL REAL TIME W/IMAGE COMPLETE Salome Aguillon, FRENCH FOLDER.NURSING ASSOCIATE [address] [place] [address] Us Imaging Referral ID Status Reason Start Date Expiration Date Visits Requested Visits Authorized [id number] Authorized Auto-Generat ed Referral 05/21/2022 06/20/2023 1 1 Specialty Diagnoses / Procedures Referred By Contac t Referred To Contact Nutrition Diagnoses Morbid obesity with BMI of 50.0-59.9, adult (HCC) Procedures CONSULT TO NUTRITION THERAPY MEDICAL NUTRITION ASSMT&IVNTJ INDIV EACH 15 [place] MEDICAL NUTRITION ASSMT&IVNTJ INDIV EACH [place] MEDICAL NUTRITION ASSMT&IVNTJ INDIV EACH [place] MEDICAL NUTRITION ASSMT&IVNTJ INDIV EACH [place] Salome Aguillon APRN.NURSING ASSOCIATE [address] [place] [place] [address] Referral ID Status Reason Start Date Expiration Date Visits Requested Visits Authorized [id number] Pending Review PCP Requested Referral 05/21/2022 05/21/2023 1 1 Reason evaluate and treat Diagnosis 1 Lumbar radiculopathy , right (M54.16) Referral Organization [facility] Referring Provider First Name Siri Referring Provider Last Name Quezada Referring Provider Specialty Nurse Pract itioner Referred Organization [facility] Referred Provider Cyndi Mejia Referred Address [address] [place], [place],[address] Referred Provider Specialty Pain Medicin e Referral Priority Routine General Notes [facility] 023 02:42:58 PM >Received today and waiting for office notes to be locked before sending referral Reason weight managment Diagnosis 1 BMI 50.0-59.9, adult (Z68.43) Referral Organization [facility] Referring Provider First Name Siri Referring Provider Last Name Damien Referring Provider Specialty Nurse Pract itioner Referred Organization [facility] Referred Provider Reece Cyr Referred Address [address] [facility],[address],[place],[address] Referred Provider Specialty Internal Med icine Referral Priority Routine General Notes [facility] 023 01:36:37 PM >Received today and sent P2P Reason evaluate and treat Diagnosis 1 Lumbar radiculopathy , right (M54.16) Referral Organization [facility] Referring Provider First Name Siri Referring Provider Last Name Damien Referring Provider Specialty Nurse Pract itioner [facility] Referred Address [address] [place], [place],[address] Referred Provider Specialty Physical The rapist Referral Priority Routine Advance Directives No Advanced Directives Records FoundLatest Code Status on File Code Status Date Activated Date Inactivated Comments Full Code 08/01/2020 11:59 PM Documents on File Type Date Recorded Patient Frontend Engineer Expl anation Advance Directive(s) 01/24/2021 2:04 PM Advance Directive(s) 12/27/2020 12:28 PM Documents on File Type Date Recorded Patient Frontend Engineer Expl anation Advance Directive(s) 01/24/2021 2:04 PM Advance Directive(s) 12/27/2020 12:28 PM Documents on File Type Date Recorded Patient Frontend Engineer Expl anation Advance Directive(s) 07/31/2021 8:28 AM Advance Directive(s) 01/24/2021 2:04 PM Advance Directive(s) 12/27/2020 12:28 PM Documents on File Type Date Recorded Patient Frontend Engineer Expl anation Advance Directive(s) 07/31/2021 8:28 AM [...] Mediastinal hematoma, initial encounter Juanita Carmona MD [address] [place] [id number] [facility] Reason Onset Date Comments PHMA/Care Gap Outreach 06/27/2021 BP, colo Reason Comments Medication Problem Reason Comments Rx Refills Reason Comments Outpatient Colonoscopy Reason Comments Physical colonoscopy result Reason Comments New Patient [place] Obesity Specialty Diagnoses / Procedures Referred By Brian gonzales Referred To Contact Diagnoses Morbid obesity with BMI of 50.0-59.9, adult (HCC) Procedures ENDOCRINE MEDICAL WEIGHT MANAGEMENT OFFICE/OUTPATIENT [facility] 60-74 MINUTES Salome Aguillon APRN.NURSING ASSOCIATE [facility] [place] [address] Referral ID Status Reason Start Date Expiration Date Visits Requested Visits Authorized [id number] Pending Review PCP Requested Referral 08/10/2021 08/10/2022 1 1 Reason Comments Patient Education Assessment Specialty Diagnoses / Procedures Referred By Brian gonzales Referred To Contact Nutrition Diagnoses Morbid obesity with BMI of 50.0-59.9, adult (HCC) Mixed hyperlipidemia Essential hypertension Arthralgia of multiple sites Prediabetes Obstructive sleep apnea syndrome Abnormal weight gain Fatty metamorphosis of liver Procedures CONSULT TO NUTRITION THERAPY OFFICE/OUTPATIENT [facility] 60-74 MINUTES Anh Mena MD [address] [facility], [address] [place] [address] Referral ID Status Reason Start Date Expiration Date Visits Requested Visits Authorized [id number] Pending Review PCP Requested Referral 08/15/2021 11/13/2021 1 1 Reason Comments Medical Weight Management Specialty Diagnoses / Procedures Referred By Brian t Referred To Contact CT IMAGING Diagnoses Lung nodules Procedures CT CHEST WO IVCON CAT SCAN OF CHEST Trey Sharma MD [address] [place] [address] Ct Imaging Referral ID Status Reason Start Date Expiration Date V isits Requested Visits Authorized [id number] Closed Auto-Generate d Referral 08/11/2021 04/29/2022 1 [...] section and content) DATE CREATED AUTHOR 08/08/2020 [facility] DATE CREATED AUTHOR AUTHOR'S ORGANIZ ATION 08/01/2021 [facility] DATE CREATED AUTHOR AUTHOR'S ORGANIZ ATION 09/21/2021 [facility] DATE CREATED AUTHOR AUTHOR'S ORGANIZ ATION 04/25/2022 [facility] DATE CREATED AUTHOR AUTHOR'S ORGANIZ ATION 05/27/2022 [facility] DATE CREATED AUTHOR AUTHOR'S ORGANIZ ATION 05/31/2022 [facility] DATE CREATED AUTHOR AUTHOR'S ORGANIZ ATION 10/25/2022 [facility] DATE CREATED AUTHOR AUTHOR'S ORGANIZ ATION 03/09/2023 [facility] DATE CREATED AUTHOR AUTHOR'S ORGANIZ ATION 04/13/2023 [facility] DATE CREATED AUTHOR AUTHOR'S ORGANIZ ATION 04/26/2023 [facility] DATE CREATED AUTHOR AUTHOR'S ORGANIZ ATION 06/02/2023 [facility] Source Comments (unrecognize d section and content) In the event this informatio n is protected by the Federal Confidentiality of Alcohol and Drug Abuse Patient Records regulations: The Federal rules restrict any use of the information to criminally investigate or prosecute any alcohol or drug abuse patient.[facility] the event this information is protected by the Federal Confidentiality of Alcohol and Drug Abuse Patient Records regulations: The Federal rules restrict any use of the information to criminally investigate or prosecute any alcohol or drug abuse patient.[facility] HospitalIn the event this information is protected by the Federal Confidentiality of Alcohol and Drug Abuse Patient Records regulations: The Federal rules restrict any use of the information to criminally investigate or prosecute any alcohol or drug abuse patient.[facility] HospitalIn the event this information is protected by the Federal Confidentiality of Alcohol and Drug Abuse Patient Records regulations: The Federal rules restrict any use of the information to criminally investigate or prosecute any alcohol or drug abuse patient.[facility] HospitalIn the event this information is protected by the Federal Confidentiality of Alcohol and Drug Abuse Patient Records regulations: The Federal rules restrict any use of the information to criminally investigate or prosecute any alcohol or drug abuse patient.[facility] HospitalIn the event this information is protected by the Federal Confidentiality of Alcohol and Drug Abuse Patient Records regulations: The Federal rules restrict any use of the information to criminally investigate or prosecute any alcohol or drug abuse patient.[facility] HospitalIn the event this information is protected by the Federal Confidentiality of Alcohol and Drug Abuse Patient Records regulations: The Federal rules restrict any use of the information to criminally investigate or prosecute any alcohol or drug abuse patient.[facility] HospitalIn the event this information is protected by the Federal Confidentiality of Alcohol and Drug Abuse Patient Records regulations: The Federal rules restrict any use of the information to criminally investigate or prosecute any alcohol or drug abuse patient.[facility] HospitalIn the event this information is protected by the Federal Confidentiality of Alcohol and Drug Abuse Patient Records regulations: The Federal rules restrict any use of the information to criminally investigate or prosecute any alcohol or drug abuse patient.[facility] HospitalIn the event this information is protected by the Federal Confidentiality of Alcohol and Drug Abuse Patient Records regulations: The Federal rules restrict any use of the information to criminally investigate or prosecute any alcohol or drug abuse patient.[facility] HospitalIn the event this information is protected by the Federal Confidentiality of Alcohol and Drug Abuse Patient Records regulations: The Federal rules restrict any use of the information to criminally investigate or prosecute any alcohol or drug abuse patient.[facility] HospitalIn the event this information is protected by the Federal Confidentiality of Alcohol and Drug Abuse Patient Records regulations: The Federal rules restrict any use of the information to criminally investigate or prosecute any alcohol or drug abuse patient.[facility] HospitalIn the event this information is protected by the Federal Confidentiality of Alcohol and Drug Abuse Patient Records regulations: The Federal rules restrict any use of the information to criminally investigate or prosecute any alcohol or drug abuse patient.[facility] HospitalIn the event this information is protected by the Federal Confidentiality of Alcohol and Drug Abuse Patient Records regulations: The Federal rules restrict any use of the information to criminally investigate or prosecute any alcohol or drug abuse patient.[facility] HospitalIn the event this information is protected by the Federal Confidentiality of Alcohol and Drug Abuse Patient Records regulations: The Federal rules restrict any use of the information to criminally investigate or prosecute any alcohol or drug abuse patient.[facility] HospitalIn the event this information is protected by the Federal Confidentiality of Alcohol and Drug Abuse Patient Records regulations: The Federal rules restrict any use of the information to criminally investigate or prosecute any alcohol or drug abuse patient.[facility] HospitalIn the event this information is protected by the Federal Confidentiality of Alcohol and Drug Abuse Patient Records regulations: The Federal rules restrict any use of the information to criminally investigate or prosecute any alcohol or drug abuse patient.[facility] HospitalIn the event this information is protected by the Federal Confidentiality of Alcohol and Drug Abuse Patient Records regulations: The Federal rules restrict any use of the information to criminally investigate or prosecute any alcohol or drug abuse patient.[facility] HospitalIn the event this information is protected by the Federal Confidentiality of Alcohol and Drug Abuse Patient Records regulations: The Federal rules restrict any use of the information to criminally investigate or prosecute any alcohol or drug abuse patient.[facility] HospitalIn the event this information is protected by the Federal Confidentiality of Alcohol and Drug Abuse Patient Records regulations: The Federal rules restrict any use of the information to criminally investigate or prosecute any alcohol or drug abuse patient.[facility] HospitalIn the event this information is protected by the Federal Confidentiality of Alcohol and Drug Abuse Patient Records regulations: The Federal rules restrict any use of the information to criminally investigate or prosecute any alcohol or drug abuse patient.[facility] HospitalIn the event this information is protected by the Federal Confidentiality of Alcohol and Drug Abuse Patient Records regulations: The Federal rules restrict any use of the information to criminally investigate or prosecute any alcohol or drug abuse patient.[facility] HospitalIn the event this information is protected by the Federal Confidentiality of Alcohol and Drug Abuse Patient Records regulations: The Federal rules restrict any use of the information to criminally investigate or prosecute any alcohol or drug abuse patient.[facility] HospitalIn the event this information is protected by the Federal Confidentiality of Alcohol and Drug Abuse Patient Records regulations: The Federal rules restrict any use of the information to criminally investigate or prosecute any alcohol or drug abuse patient.[facility] HospitalIn the event this information is protected by the Federal Confidentiality of Alcohol and Drug Abuse Patient Records regulations: The Federal rules restrict any use of the information to criminally investigate or prosecute any alcohol or drug abuse patient.[facility] HospitalIn the event this information is protected by the Federal Confidentiality of Alcohol and Drug Abuse Patient Records regulations: The Federal rules restrict any use of the information to criminally investigate or prosecute any alcohol or drug abuse patient.[facility] HospitalIn the event this information is protected by the Federal Confidentiality of Alcohol and Drug Abuse Patient Records regulations: The Federal rules restrict any use of the information to criminally investigate or prosecute any alcohol or drug abuse patient.[facility] HospitalIn the event this information is protected by the Federal Confidentiality of Alcohol and Drug Abuse Patient Records regulations: The Federal rules restrict any use of the information to criminally investigate or prosecute any alcohol or drug abuse patient.[facility] HospitalIn the event this information is protected by the Federal Confidentiality of Alcohol and Drug Abuse Patient Records regulations: The Federal rules restrict any use of the information to criminally investigate or prosecute any alcohol or drug abuse patient.[facility] HospitalIn the event this information is protected by the Federal Confidentiality of Alcohol and Drug Abuse Patient Records regulations: The Federal rules restrict any use of the information to criminally investigate or prosecute any alcohol or drug abuse patient.[facility] Care Teams (unrecognized sec tion and content) Hob Mill Operator Relationship Specialty Start Date End Date Salome Aguillon, FRENCH FOLDER.NURSING ASSOCIATE [address] [place] [address] PCP - General Family Practice 11/23/19 [employer] Operator Relationship Specialty Start Date End Date Salome Aguillon, FRENCH FOLDER.NURSING ASSOCIATE [address] [place] [address] PCP - General Family Practice 11/23/19 Hob Mill Operator Relationship Specialty Start Date End Date Salome Aguillon, FRENCH FOLDER.NURSING ASSOCIATE [address] [place] [address] PCP - General Family Practice 11/23/19 Hob Mill Operator Relationship Specialty Start Date End Date Salome Aguillon, FRENCH FOLDER.NURSING ASSOCIATE [address] [place] [address] PCP - General Family Practice 11/23/19 Hob Mill Operator Relationship Specialty Start Date End Date Salome Aguillon, FRENCH FOLDER.NURSING ASSOCIATE [address] [place] [address] PCP - General Family Practice 11/23/19 Hob Mill Operator Relationship Specialty Start Date End Date Salome Aguillon, FRENCH FOLDER.NURSING ASSOCIATE [address] [place] [address] PCP - General Family Practice 11/23/19 Hob Mill Operator Relationship Specialty Start Date End Date Salome Aguillon, FRENCH FOLDER.NURSING ASSOCIATE [address] [place] [address] PCP - General Family Practice 11/23/19 [employer] Mill Operator Relationship Specialty Start Date End Date Salome Aguillon, FRENCH FOLDER.NURSING ASSOCIATE [address] [place] [address] PCP - General Family Practice 11/23/19 [employer] Mill Operator Relationship Specialty Start Date End Date Salome Aguillon, FRENCH FOLDER.NURSING ASSOCIATE [address] [place] [address] PCP - General Family Practice 11/23/19 Hob Mill Operator Relationship Specialty Start Date End Date Salome Aguillon, FRENCH FOLDER.NURSING ASSOCIATE [address] [place] [address] PCP - General Family Practice 11/23/19 Hob Mill Operator Relationship Specialty Start Date End Date Salome Aguillon, FRENCH FOLDER.NURSING ASSOCIATE [address] [place] [address] PCP - General Family Practice 11/23/19 Hob Mill Operator Relationship Specialty Start Date End Date Salome Aguillon, FRENCH FOLDER.NURSING ASSOCIATE [address] [place] [address] PCP - General Family Practice 11/23/19 Hob Mill Operator Relationship Specialty Start Date End Date Salome Aguillon, FRENCH FOLDER.NURSING ASSOCIATE [address] [place] [address] PCP - General Family Practice 11/23/19 Hob Mill Operator Relationship Specialty Start Date End Date Salome Aguillon, FRENCH FOLDER.NURSING ASSOCIATE [address] [place] [address] PCP - General Family Practice 11/23/19 Hob Mill Operator Relationship Specialty Start Date End Date [facility] Salome, FRENCH FOLDER.NURSING ASSOCIATE [address] [place] [address] PCP - General Family Practice 11/23/19 Hob Mill Operator Relationship Specialty Start Date End Date [facility] Salome, FRENCH FOLDER.NURSING ASSOCIATE [address] [place] [address] PCP - General Family Medicine 11/23/19 Hob Mill Operator Relationship Specialty Start Date End Date [facility] Salome, FRENCH FOLDER.NURSING ASSOCIATE [address] [place] [address] PCP - General Family Medicine 11/23/19 Hob Mill Operator Relationship Specialty Start Date End Date [facility] Salome, FRENCH FOLDER.NURSING ASSOCIATE [address] [place] [address] PCP - General Family Medicine 11/23/19 Hob Mill Operator Relationship Specialty Start Date End Date [facility] Salome, FRENCH FOLDER.NURSING ASSOCIATE [address] [place] [address] PCP - General Family Medicine 11/23/19 Hob Mill Operator Relationship Specialty Start Date End Date [facility] Salome, FRENCH FOLDER.NURSING ASSOCIATE [address] [place] [address] PCP - General Family Medicine 11/23/19 Hob Mill Operator Relationship Specialty Start Date End Date [facility] FRENCH FOLDER.NURSING ASSOCIATE [address] [place] [address] PCP - General Family Medicine 11/23/19 Hob Mill Operator Relationship Specialty Start Date End Date [facility] Salome, FRENCH FOLDER.NURSING ASSOCIATE [address] [place] [address] PCP - General Family Medicine 11/23/19 Hob Mill Operator Relationship Specialty Start Date End Date [facility] FRENCH FOLDER.NURSING ASSOCIATE [address] [place] [address] PCP - General Family Medicine 11/23/19 Hob Mill Operator Relationship Specialty Start Date End Date Saolme, FRENCH FOLDER.NURSING ASSOCIATE [address] [place] [address] PCP - General Family Medicine 11/23/19 Hob Mill Operator Relationship Specialty Start Date End Date [facility] Salome, FRENCH FOLDER.NURSING ASSOCIATE [address] [place] [address] PCP - General Family Medicine 11/23/19 Hob Mill Operator Relationship Specialty Start Date End Date [facility] Salome, FRENCH FOLDER.NURSING ASSOCIATE [address] [address] PCP - General Family Medicine 11/23/19 Hob Mill Operator Relationship Specialty Start Date End Date [facility] Salome, FRENCH FOLDER.NURSING ASSOCIATE [address] [place] [address] PCP - General Family Medicine 11/23/19 Team [...] BE BASED ON THE PRIMARY CLINICAL RECORDS. [facility] [employer] [facility]. provides no warranty or guarantee of the accuracy or completeness of information in this document.
--- NOTE | 2023-06-03 09:56 | SWNOTE1 ---
SW spoke to pt in regards to his IV anbx at discharge. If pt is able to be discharged on an antibiotic that is only 1x daily, he would like to be an EMILIE pt. SW updated case management. Pt is aware of alternative of home with home health.
--- NOTE | 2023-06-03 10:28 | PT.DAILY ---
Physical Therapy Daily Note PT Daily Note/Assess Start: 06/03/23 10:24 Freq: Status: Active Protocol: Document 06/03/23 10:24 KAY (Rec: 06/03/23 10:27 KAY [id number]) Physical Therapy Daily Note/Assessment Time In/Time Out Time In 10:00 Time Out 10:13 Pain In Pain N/A Pain Out Pain N/A Subjective Subjective Sitting in BS chair upon arrival. Agrees to PT. Pain is under control. Slept OK last night. Has been using restroom on his own in the room without difficulty. Therapeutic Exercise Time Therapeutic Exercise Minutes (minutes) 3 Therapeutic Exercise Units 0 Therapeutic Exercise Treatment Therapeutic Exercise Treatment Seated AP, laq and marches 10x ea to improve functional mobility prior to gait. Therapeutic Activity Time Therapeutic Activity Minutes (minutes) 8 Therapeutic Activity Units 1 Therapeutic Activity Treatment Chair Transfer Ability Independent Therapeutic Activity Comments Sit>stand IND. Amb with RW 250 ' with assist for IV pole, SUPERVISION ONLY. No LOB or rest breaks needed. Returned to room with girlfriend present. Pt sitting in BS chair with call light in reach and needs met. Total Physical Therapy Time Total Therapy Minutes 11 Total Physical Therapy Units 1 Summary Daily Note Summary Significant improvement with amb endurance. Pain is under control.
[2023-06-03 10:38] LABS: Glucometer 203 mg/dL (74-106)
[2023-06-03] MEDS: ORPHENADRINE 60 MG/ 2 ML VIAL IV ×2 (11:50→22:00)
[2023-06-03] MEDS: INSULIN ASPART 300 UNIT/3 ML PEN SUBQ ×3 (11:51→21:47)
[2023-06-03] MEDS: DOXYCYCLINE HYCLATE 100 MG in 0.9 % SODIUM CHLORIDE 250 ML 250 MG IV ×2 (11:52→22:00)
[2023-06-03 16:34] LABS: Glucometer 218 mg/dL (74-106)
[2023-06-03] MEDS: LEVALBUTEROL HCL 0.63 MG/3 ML VIAL.NEB 0.630000000000000004 MG IH ×2 (17:14→23:11)
[2023-06-03] MEDS: IPRATROPIUM BROMIDE 0.5 MG/2.5 ML VIAL.NEB IH ×2 (17:14→23:11)
[2023-06-03 20:48] LABS: Glucometer 209 mg/dL (74-106)
[2023-06-04] VITALS (13 sets, daily range): BP systolic 108–161; BP diastolic 57–75; PULSE 86–110; RESP 16–20; TEMP 36.3–36.7; O2SAT 91–97
[2023-06-04] MEDS: LEVALBUTEROL HCL 0.63 MG/3 ML VIAL.NEB 0.630000000000000004 MG IH ×4 (04:36→23:02)
[2023-06-04] MEDS: IPRATROPIUM BROMIDE 0.5 MG/2.5 ML VIAL.NEB IH ×4 (04:36→23:03)
[2023-06-04 04:50] LABS: Basophils Percent Auto 0.2 % (0.2-2.0); Hematocrit 35.8 % (42.0-54.0); Hemoglobin 11.2 g/dL (14.0-18.0); Immature Granulocytes Abs Auto 1.07 10^3/uL (0.00-0.03); Immature Granulocytes Pct Auto 5.5 % (0.0-0.5); Lymphocytes Absolute Auto 1.1 10^3/uL (1.2-3.8); Lymphocytes Percent Auto 5.8 % (20.5-60.0); Mean Corpuscular HGB Conc 31.3 g/dL (29.9-35.2); Mean Corpuscular Hemoglobin 27.9 pg (25.9-34.0); Mean Corpuscular Volume 89.1 fL (80.0-94.0); Mean Platelet Volume 10.4 fL (9.5-13.5); Monocytes Absolute Auto 0.4 10^3/uL (0.3-0.8); Monocytes Percent Auto 2.1 % (1.7-12.0); Neutrophils Absolute Auto 16.9 10^3/uL (1.4-6.5); Neutrophils Percent Auto 86.4 % (43.0-75.0); Platelet Count 255 10^3/uL (150-450); Red Blood Count 4.02 10^6/uL (4.70-6.10); Red Cell Distribution Width 14.4 % (11.0-15.0); White Blood Count 19.6 10^3/uL (4.0-11.0)
[2023-06-04 05:23] LABS: Alanine Aminotransferase 49 U/L (16-63); Albumin Globulin Ratio 0.7; Albumin Level 2.9 g/dL (3.4-5.0); Alkaline Phosphatase 72 U/L (46-116); Anion Gap 12.4; Aspartate Amino Transferase 17 U/L (15-37); Bilirubin Total 0.6 mg/dL (0.2-1.0); Calcium 8.8 mg/dL (8.5-10.1); Carbon Dioxide 23.8 mmol/L (21.0-32.0); Chloride 103 mmol/L (98-107); Estimated GFR (African America >60 (>=60); Estimated GFR (Non-African Ame >60 (>=60); Glucose 188 mg/dL (74-106); Potassium 4.2 mmol/L (3.5-5.1); Sodium 135 mmol/L (136-145); Total Protein 6.9 g/dL (6.4-8.2)
[2023-06-04] MEDS: OMEPRAZOLE 20 MG CAPSULE.DR PO (05:32)
[2023-06-04] MEDS: KETOROLAC TROMETHAMINE 30 MG/ML VIAL IVP ×4 (05:32→22:06)
[2023-06-04] MEDS: METHYLPREDNISOLONE SOD SUCC PF 125 MG/2 ML VIAL IVP (05:32)
[2023-06-04] MEDS: PIPERACILLIN SODIUM/TAZOBACTAM 3.375 GM in 0.9 % SODIUM CHLORIDE 50 ML IV (05:33)
[2023-06-04 08:03] LABS: Glucometer 163 mg/dL (74-106)
[2023-06-04] MEDS: ENOXAPARIN SODIUM 40 MG/0.4 ML SYRINGE SUBQ (08:14)
[2023-06-04] MEDS: LIDOCAINE 5% PATCH 1 PATCH TOPICAL (08:15)
[2023-06-04] MEDS: LEVOFLOXACIN IN DEXTROSE 5 % 750 MG/150 ML IV.SOLN 100 MG IV (08:18)
[2023-06-04] MEDS: BACLOFEN 10 MG TABLET PO ×2 (08:25→21:12)
[2023-06-04] MEDS: LISINOPRIL 10 MG TABLET PO (08:25)
[2023-06-04] MEDS: ASPIRIN 81 MG TABLET.DR PO (08:28)
[2023-06-04] MEDS: INSULIN ASPART 300 UNIT/3 ML PEN SUBQ ×4 (08:31→22:12)
--- NOTE | 2023-06-04 09:15 | P.PN_ITS ---
Progress Note: Subjective Subjective Interval history: Cough slowly improving, shortness of breath with ambulation also improving Exam Constitutional Vital Signs, click to edit/add: Last Vital Signs Temp 97.6 F 06/04/23 04:00 Pulse 98 H 06/04/23 04:53 Resp 18 06/04/23 04:53 BP 133/71 06/04/23 08:25 Pulse Ox 96 06/04/23 04:53 O2 Del Method Room Air 06/04/23 04:53 O2 Flow Rate 2 05/31/23 16:04 Documenting provider has reviewed patient's vital signs: yes Common normals: no apparent distress HENMT Common normals: normocephalic and head/scalp atraumatic Lymph Lymphatic: no lymphadenopathy noted Chest Common normals: inspection of chest normal Respiratory Common normals: normal respiratory effort and no retractions Auscultation: rhonchi (Unchanged from previous day, was worse yesterday compared to admission) Cardio Common normals: regular rate and regular rhythm GI Common normals: Normal to inspection, nondistended, normoactive bowel sounds present and soft to palpation Progress Note: Objective Labs Labs: Short CBC 06/04/23 Range/Units 04:00 WBC 19.6 H (4.0-11.0) 10^3/uL Hgb 11.2 L (14.0-18.0) g/dL Hct 35.8 L (42.0-54.0) % Plt Count 255 (150-450) 10^3/uL BMP 06/04/23 04:00 Sodium 135 L Potassium 4.2 Chloride 103 Carbon Dioxide 23.8 BUN 26.0 H Creatinine 1.13 Glucose 188 H Calcium 8.8 Liver Function 06/04/23 Range/Units 04:00 Total Bilirubin 0.6 (0.2-1.0) mg/dL AST 17 (15-37) U/L ALT 49 (16-63) U/L Alkaline Phosphatase 72 (46-116) U/L Albumin 2.9 L (3.4-5.0) g/dL Progress Note: A&P Assessment and Plan (1) Febrile illness: Assessment and Plan: Fever with unknown source until chest x-ray comes back and shows possible bilateral pneumonia, viral possible since it is dry, will try to obtain sputum culture, 2 blood cultures of, positive for Granulicatella adiacens-patient will need echocardiogram to rule out valvular vegetations, may need JUDY, also long-term antibiotics based on the type of infection and he has a left shoulder replacement so risk of that becoming infect ed is significantly high. 4 to 6 weeks of IV antibiotics. White blood cell count has been increasing the last couple days, significantly elevated compared to yesterday, will change antibiotics today, sensitivities not back for 3 more days, if white blood cell count is improving finally tomorrow with the Rocephin, possible discharge tomorrow for 4 to 6 weeks of IV antibiotics (2) Intractable back pain: Assessment and Plan: Add Toradol, Norflex and increase steroids-somewhat better as well as shoulder better-cut back on steroids today (3) Sleep apnea: Assessment and Plan: He has machine Qualifiers: Sleep apnea type: obstructive Qualified Code(s): G47.33 - Obstructive sleep apnea (adult) (pediatric) (4) Hypertension: Assessment and Plan: Maintain current medications Qualifiers: Hypertension type: primary hypertension Qualified Code(s): I10 - Essential (primary) hypertension (5) High cholesterol: Assessment and Plan: Continue current medications Plan Added diagnoses Moderate protein calorie malnutrition-diet supplement Leukocytosis-higher today. See plan above Iron deficiency anemia-monitor daily Lactic acidosis secondary to the bilateral pneumonia with Granulicatella adiacens bacteremia on 2 blood cultures Hyperglycemia-likely related to steroids-monitor daily Hypomagnesemia-supplement Patient needs to stay 1 additional day, sensitivities not back, white blood cell count increasing so unable to send patient home with current antibiotic regiment, will change antibiotics today, if white blood cell count is improving tomorrow possible discharge tomorrow. Based on natural history of sensitivities to the current infection Rocephin should be effective but so should have been the combination is currently taking
[2023-06-04] MEDS: CEFTRIAXONE 2,000 MG in 0.9 % SODIUM CHLORIDE 100 ML 200 MG IV (09:26)
--- NOTE | 2023-06-04 09:51 | CM.NOTE ---
Rounds made with Dr. Parish. Continue to wait on sensitivity for blood cultures. Mr. Engel verbalizes understanding.
[2023-06-04 11:01] LABS: Glucometer 172 mg/dL (74-106)
[2023-06-04] MEDS: ORPHENADRINE 60 MG/ 2 ML VIAL IV ×2 (11:03→22:06)
--- NOTE | 2023-06-04 11:45 | PT.DAILY ---
Physical Therapy Daily Note PT Daily Note/Assess Start: 06/03/23 10:24 Freq: Status: Active Protocol: Document 06/04/23 11:43 KAY (Rec: 06/04/23 11:45 KAY [id number]) Physical Therapy Daily Note/Assessment Time In/Time Out Time In 10:40 Time Out 10:50 Pain In Pain N/A Pain Out Pain N/A Subjective Subjective Sitting in BS chair upon arrival. Agreeable to PT. Has been up ad roc in room walking with IV pole. Therapeutic Exercise Time Therapeutic Exercise Minutes (minutes) 3 Therapeutic Exercise Units 0 Therapeutic Exercise Treatment Therapeutic Exercise Treatment Seated bilat LE strengthening ex complete while sitting in BS chair prior to gait training. Therapeutic Activity Time Therapeutic Activity Minutes (minutes) 7 Therapeutic Activity Treatment Chair Transfer Ability Modified Independent Therapeutic Activity Comments Sit>stand to IV pole Sanaz - amb sup 300' with IV pole without rest break. Minimal fatigue upon completion. returned to BS chair with call light in reach. Total Physical Therapy Time Total Therapy Minutes 10 Total Physical Therapy Units 0 Summary Daily Note Summary Plan DC from PT case load. Pt is up ad roc. Pain is under control. He is walking serval times a day in feng IND. Minimal fatigue with session today.
[2023-06-04 17:13] LABS: Glucometer 228 mg/dL (74-106)
[2023-06-04 21:22] LABS: Glucometer 163 mg/dL (74-106)
[2023-06-05 04:00] VITALS: BP 149/62; PULSE 97; RESP 18; TEMP 36.4; O2SAT 95
[2023-06-05 04:57] LABS: Hematocrit 34.5 % (42.0-54.0); Hemoglobin 10.9 g/dL (14.0-18.0); Mean Corpuscular HGB Conc 31.6 g/dL (29.9-35.2); Mean Corpuscular Hemoglobin 28.3 pg (25.9-34.0); Mean Corpuscular Volume 89.6 fL (80.0-94.0); Mean Platelet Volume 10.3 fL (9.5-13.5); Platelet Count 216 10^3/uL (150-450); Red Blood Count 3.85 10^6/uL (4.70-6.10); Red Cell Distribution Width 14.9 % (11.0-15.0); White Blood Count 18.3 10^3/uL (4.0-11.0)
[2023-06-05 05:06] VITALS: PULSE 89; RESP 18
[2023-06-05] MEDS: LEVALBUTEROL HCL 0.63 MG/3 ML VIAL.NEB 0.630000000000000004 MG IH (05:06)
[2023-06-05] MEDS: IPRATROPIUM BROMIDE 0.5 MG/2.5 ML VIAL.NEB IH (05:06)
[2023-06-05 05:32] LABS: Alanine Aminotransferase 57 U/L (16-63); Albumin Globulin Ratio 0.8; Albumin Level 2.7 g/dL (3.4-5.0); Alkaline Phosphatase 58 U/L (46-116); Anion Gap 9.7; Aspartate Amino Transferase 24 U/L (15-37); BUN Creatinine Ratio 34.5; Bilirubin Total 0.4 mg/dL (0.2-1.0); Calcium 8.4 mg/dL (8.5-10.1); Chloride 106 mmol/L (98-107); Estimated GFR (African America >60 (>=60); Estimated GFR (Non-African Ame >60 (>=60); Globulin 3.5 g/dL; Glucose 124 mg/dL (74-106); Potassium 4.7 mmol/L (3.5-5.1); Sodium 136 mmol/L (136-145); Total Protein 6.2 g/dL (6.4-8.2)
[2023-06-05 05:50] LABS: Atypical Lymphocytes Abs Man 0.18; Band Neutrophils Absolute 0.2 10^3/uL (0.0-0.3); Lymphocytes Absolute Manual 1.28 10^3/uL (1.20-3.80); Metamyelocytes Absolute Manual 0.18; Monocytes Absolute Manual 1.09 10^3/uL (0.30-0.80); Segmented Neut Absolute Manual 15.55 10^3/uL (1.4-6.5)
[2023-06-05] MEDS: OMEPRAZOLE 20 MG CAPSULE.DR PO (06:18)
[2023-06-05] MEDS: KETOROLAC TROMETHAMINE 30 MG/ML VIAL IVP (06:18)
[2023-06-05 08:13] VITALS: BP 116/65; PULSE 93; TEMP 36.6; O2SAT 96
[2023-06-05] MEDS: ASPIRIN 81 MG TABLET.DR PO (09:46)
[2023-06-05] MEDS: LISINOPRIL 10 MG TABLET PO (09:46)
[2023-06-05] MEDS: CEFTRIAXONE 2,000 MG in 0.9 % SODIUM CHLORIDE 100 ML 200 MG IV (09:47)
[2023-06-05] MEDS: ENOXAPARIN SODIUM 40 MG/0.4 ML SYRINGE SUBQ (09:47)
[2023-06-05] MEDS: LIDOCAINE 5% PATCH 1 PATCH TOPICAL (09:47)
[2023-06-05] MEDS: BACLOFEN 10 MG TABLET PO (09:47)
--- NOTE | 2023-06-05 09:54 | P.DS_ITS ---
DS: Providers Provider Date of admission: 05/31/23 11:35 Primary care physician: YOUNG WHEAT Consults: 06/01/23 Physical Therapy Eval and Treat Routine Reason for consultation: weakness 06/02/23 11:43 Consult to PICC Line RN Routine Consulting Provider: Demetrius Parish Reason for consultation: 4-6 weeks IV AB Has provider been notified: No DS: Diagnosis Discharge Diagnosis (1) Febrile illness: (2) Intractable back pain: (3) Sleep apnea: Qualifiers: Sleep apnea type: obstructive Qualified Code(s): G47.33 - Obstructive sleep apnea (adult) (pediatric) (4) Hypertension: Qualifiers: Hypertension type: primary hypertension Qualified Code(s): I10 - Essential (primary) hypertension (5) High cholesterol: Plan (1) Febrile illness: Assessment and Plan: Fever with unknown source until chest x-ray comes back and shows possible bilateral pneumonia, viral possible since it is dry, will try to obtain sputum culture, 2 blood cultures of, positive for Granulicatella adiacens-patient will need echocardiogram to rule out valvular vegetations, may need JUDY, also long-term antibiotics based on the type of infection and he has a left shoulder replacement so risk of that becoming infected is significantly high. 4 to 6 weeks of IV antibiotics. White blood cell count has been increasing the last couple days, significantly elevated compared to yesterday, (2) Intractable back pain: Assessment and Plan: (3) Sleep apnea: Assessment and Plan: He has machine Qualifiers: Sleep apnea type: obstructive Qualified Code(s): G47.33 - Obstructive sleep apnea (adult) (pediatric) (4) Hypertension: Assessment and Plan: Maintain current medications Qualifiers: Hypertension type: primary hypertension Qualified Code(s): I10 - Essent ial (primary) hypertension (5) High cholesterol: Assessment and Plan: Continue current medications Plan Added diagnoses Moderate protein calorie malnutrition-diet supplement Leukocytosis-higher today. See plan above Iron deficiency anemia-monitor daily Lactic acidosis secondary to the bilateral pneumonia with Granulicatella adiacens bacteremia on 2 blood cultures Hyperglycemia-likely related to steroids-monitor daily Hypomagnesemia-supplement DS: Summary Hospital Course Hospital Course: Patient was admitted after being evaluated in the emergency room for increasing weakness and shortness of breath. Some back pain but that is more chronic for him. Workup in ER found patient to have bilateral pneumonia. Blood cultures were obtained which grew Granulicatella adiacens into blood cultures. Patient was placed on IV antibiotics and will typically cover that. That would be Zosyn. However his white blood cell count continued to increase throughout the hospital stay. His antibiotics were changed to Rocephin yesterday. He tolerated that well, white blood cell count better today, he feels better today, at this point although final sensitivities are pending we will send patient home with the Rocephin at once a day. Also done with physician of the back pain. Toradol Norflex seemed to help that. That was stopped yesterday and pain so far is improved. Has been off the steroids for 24 hours also. Breathing is also improved. From admission. At this point patient is safe to be discharged to home. He needs further workup with JUDY. Will arrange that when evaluated in the office medications see list. Follow-up with me within the next week. Time Spent with Patient Time attestation: Total time spent providing and/or coordinating discharge services: Exam Constitutional Vital Signs, click to edit/add: Last Vital Signs Temp 97.9 F 06/05/23 08:13 Pulse 93 H 06/05/23 08:13 Resp 18 06/05/23 05:06 BP 116/65 06/05/23 08:13 Pulse Ox 96 06/05/23 08:13 O2 Del Method Room Air 06/05/23 08:13 O2 Flow Rate 2 05/31/23 16:04 Documenting provider has reviewed patient's vital signs: yes Common normals: no apparent distress HENMT Common normals: normocephalic and head/scalp atraumatic Lymph Lymphatic: no lymphadenopathy noted Chest Common normals: inspection of chest normal Respiratory Common normals: normal respiratory effort and no retractions Auscultation: rhonchi (Unchanged from previous day, was worse yesterday compared to admission) Cardio Common normals: regular rate and regular rhythm GI Common normals: Normal to inspection, nondistended, normoactive bowel sounds present and soft to palpation DS: Data Data Completed and Pending Labs on day of discharge: Labs from last 24 hours 06/05/23 06/04/23 06/04/23 04:10 21:18 17:12 WBC 18.3 H RBC 3.85 L Hgb 10.9 L Hct 34.5 L MCV 89.6 MCH 28.3 MCHC 31.6 RDW 14.9 Plt Count 216 MPV 10.3 Seg Neuts % (Manual) 85.0 Band Neutrophils % 1.0 Lymphocytes % (Manual) 7.0 L Atypical Lymphs % (Man) 1.0 Monocytes % (Manual) 6.0 Eosinophils % (Manual) 0.0 L Basophils % (Manual) 0.0 L Metamyelocytes % 1.0 Neutrophils # (Manual) 15.55 H Band Neutrophils # 0.2 Lymphocytes # (Manual) 1.28 Abs Atypical Lymphs Man 0.18 Monocytes # (Manual) 1.09 H Eosinophils # (Manual) 0.00 Basophils # (Manual) 0.00 Metamyelocytes # 0.18 Sodium 136 Potassium 4.7 Chloride 106 Carbon Dioxide 25.0 Anion Gap 9.7 BUN 30.0 H Creatinine 0.87 Est GFR ( Amer) >60 Est GFR (Non-Af Amer) >60 BUN/Creatinine Ratio 34.5 Glucose 124 H Calcium 8.4 L Total Bilirubin 0.4 AST 24 ALT 57 Alkaline Phosphatase 58 Total Protein 6.2 L Albumin 2.7 L Globulin 3.5 Albumin/Globulin Ratio 0.8 POC Glucose 163 H 228 H 06/04/23 10:59 WBC RBC Hgb Hct MCV MCH MCHC RDW Plt Count MPV Seg Neuts % (Manual) Band Neutrophils % Lymphocytes % (Manual) Atypical Lymphs % (Man) Monocytes % (Manual) Eosinophils % (Manual) Basophils % (Manual) Metamyelocytes % Neutrophils # (Manual) Band Neutrophils # Lymphocytes # (Manual) Abs Atypical Lymphs Man Monocytes # (Manual) Eosinophils # (Manual) Basophils # (Manual) Metamyelocytes # Sodium Potassium Chloride Carbon Dioxide Anion Gap BUN Creatinine Est GFR ( Amer) Est GFR (Non-Af Amer) BUN/Creatinine Ratio Glucose Calcium Total Bilirubin AST ALT Alkaline Phosphatase Total Protein Albumin Globulin Albumin/Globulin Ratio POC Glucose 172 H Preliminary micro results at discharge 05/31/23 12:08 - Preliminary Blood Granulicatella adiacens 05/31/23 12:01 Blood Culture Result 1 - Preliminary Blood Granulicatella adiacens Discharge Plan Discharge Disposition: Home, Self-Care Condition: Fair Discharge Medications: New Ceftriaxone [Rocephin 2 gm Vial] 2000 MG 0.9 % Sodium Chloride [Sodium Chloride 0.9% 100 ml] 100 ML 200 mls/hr IV QD Ordered By: Demetrius Parish MD Last Taken: 06/05/23 09:47 200 mls/hr Continued aspirin [Adult Aspirin Regimen] 81 mg tablet,delayed release (DR/EC) 81 mg PO DAILY cyanocobalamin (vitamin B-12) [B-12 DOTS] 500 mcg tablet 500 mcg PO DAILY cholecalciferol (vitamin D3) [VitaJoy Daily D] 25 mcg (1,000 unit) tablet,chewable 2,000 unit PO DAILY lidocaine [Lidoderm] 5 % adhesive patch,medicated 1 patch topical Q24H Qty: 15 0RF Rx Instructions: leave on most painful area for up to 12 hrs hydrocodone-acetaminophen 7.5-325 mg tablet 1 tab PO TID PRN (Reason: pain) Qty: 21 0RF diazepam [Valium] 10 mg tablet 10 mg PO DAILY PRN (Reason: anxiety) Qty: 1 0RF Rx Instructions: to take 30-45min prior to MRI baclofen 10 mg tablet 10 mg PO BID docusate sodium 100 mg capsule 100 mg PO DAILY PRN (Reason: constipation) lisinopril 10 mg tablet 10 mg PO DAILY omeprazole 20 mg capsule,delayed release(DR/EC) 20 mg PO DAILY acetaminophen 500 mg capsule 1,000 mg PO .Q12 PRN (Reason: pain) ibuprofen [I-Prin] 200 mg tablet 800 mg PO Q12H magnesium 250 mg tablet 500 mg PO DAILY Discontinued methylprednisolone [Medrol (Javid)] 4 mg tablets,dose pack 4 mg PO DAILY 6 Days Qty: 21 0RF Rx Instructions: as directed Patient Instructions: Ceftriaxone (By injection) (Rocephin, Novaplus cefTRIAXone,..., Acute Low Back Pain (ED), Chronic Back Pain (DC) Forms: Portal Instructions Follow Up Appointments: June 09 @ 4:15pm with Dr. Parish [address] [place] [address] A, [place] [phone] Please bring insurance cards, photo id, list of meds and come early to fill out paperwork prior to appt. Discharge Date/Time: 06/05/23 10:44
--- NOTE | 2023-06-05 11:22 | CM.NOTE ---
Rounds made with Dr. Parish. Plan for discharge today with [facility]. Verbalizes understanding.
--- NOTE | 2023-06-07 15:08 | CM.DCFOLLOWU ---
1st attempt discharge follow up call, no answer 06/07/23
--- NOTE | 2023-06-11 13:39 | CM.DCFOLLOWU ---
Person spoke with: patient How are you feeling? better How is your pain? pain is better and steroid treatments are working, good mobility Did you understand your discharge instructions? yes Do you have any questions about your discharge instructions? no Were you given any prescriptions at discharge? yes Were you able to get your prescriptions filled? yes Do you understand how to take your medications as ordered? yes Do you have any questions about your follow up appointment and do you plan to keep your follow up appointment? no questions, had follow up yesterday with Dr. Parish Is there anything else that you would like to discuss? no Questions/Comments/Concerns/Other: He voiced he had exceptionally great care here at [facility]. Voiced everyone was great to him and him and his truly appreciated the treatment he received.
== END 2023-06-05 10:44 | disposition home or self-care (01) | DRG 871 ==
LOC: ER 10:04 → MS 15:49
PROVIDERS: Family Medicine; Nurse Practitioner; Admitting Provider Family Medicine; Emergency Provider Emergency Medicine; PCP Nurse Practitioner; Visit Provider Family Medicine
DX: A41.89 Other specified sepsis (principal); J15.8 Pneumonia due to other specified bacteria; E44.0 Moderate protein-calorie malnutrition; E87.20 Acidosis, unspecified; Z68.42 Body mass index [BMI] 45.0-49.9, adult; B96.89 Other specified bacterial agents as the cause of diseases classified elsewhere; M54.50 Low back pain, unspecified; I10 Essential (primary) hypertension; E78.00 Pure hypercholesterolemia, unspecified; D50.9 Iron deficiency anemia, unspecified; M47.817 Spondylosis without myelopathy or radiculopathy, lumbosacral region; G47.33 Obstructive sleep apnea (adult) (pediatric); R09.02 Hypoxemia; R73.9 Hyperglycemia, unspecified; Z96.612 Presence of left artificial shoulder joint; E83.42 Hypomagnesemia; E66.01 Morbid (severe) obesity due to excess calories; K21.9 Gastro-esophageal reflux disease without esophagitis; Z79.82 Long term (current) use of aspirin; Z79.899 Other long term (current) drug therapy; Z80.1 Family history of malignant neoplasm of trachea, bronchus and lung; Z82.49 Family history of ischemic heart disease and other diseases of the circulatory system; Z83.6 Family history of other diseases of the respiratory system; Z87.442 Personal history of urinary calculi
CPT/HCPCS: 0202U; 36415; 36569; 36592; 71045; 72131; 72148; 74018; 80048; 80053; 81001; 82948; 83605; 83880; 84145; 85007; 85025; 85027; 87040; 87070; 87086; 87150; 87186; 87420; 87804; 87811; 93306; 94640; 94667; 94668; 96365; 96366; 96367; 96368; 96372; 96375; 96376; 97162; 97530; 99285; C1887; J2920; J2930

== ENCOUNTER 2023-06-06 07:24 | Outpatient (OUT) | payer BC, SELFPAY ==
[2023-06-06 08:03] VITALS: BP 124/62; PULSE 87; RESP 18; TEMP 36.1; O2SAT 97
[2023-06-06] MEDS: CEFTRIAXONE 2,000 MG in 0.9 % SODIUM CHLORIDE 100 ML 200 MG IV (08:11)
--- NOTE | 2023-06-06 08:34 | PC.NURSE ---
0745 arrival ambulatory to chair 1. alert oriented, accompanied by family. 0755 rt upper arm picc dressing removed, site clear, external length 0 cm, new stat lock and dressing applied cap changed, flushes well with excellent blood return patient tolerated well. 0805 IV rocephin initiated. 0837 IV rocephin infused. Flushed picc, released ambulatory.
[2023-06-07 07:56] VITALS: BP 128/64; PULSE 74; RESP 18; TEMP 36.1; O2SAT 92
[2023-06-07] MEDS: CEFTRIAXONE 2,000 MG in 0.9 % SODIUM CHLORIDE 100 ML 200 MG IV (08:05)
--- NOTE | 2023-06-07 08:16 | PC.NURSE ---
0750 patient and arrive, patient states been up thru night with chills, no fever, nauseated and vomited several times. Dr. Parish notified, orders recevied.
[2023-06-07] MEDS: DEXAMETHASONE SOD PHOS (PF) 10 MG/ML VIAL IV (08:35)
[2023-06-07 08:50] LABS: Hematocrit 37.3 % (42.0-54.0); Hemoglobin 12.3 g/dL (14.0-18.0); Mean Corpuscular Hemoglobin 28.5 pg (25.9-34.0); Mean Corpuscular Volume 86.5 fL (80.0-94.0); Mean Platelet Volume 10.2 fL (9.5-13.5); Platelet Count 184 10^3/uL (150-450); Red Blood Count 4.31 10^6/uL (4.70-6.10); Red Cell Distribution Width 14.7 % (11.0-15.0); White Blood Count 16.7 10^3/uL (4.0-11.0)
[2023-06-07 09:05] LABS: Band Neutrophils Absolute 0.5 10^3/uL (0.0-0.3); Segmented Neut Absolute Manual 14.69 10^3/uL (1.4-6.5)
[2023-06-07 09:06] LABS: Alanine Aminotransferase 49 U/L (16-63); Albumin Globulin Ratio 0.8; Albumin Level 2.8 g/dL (3.4-5.0); Alkaline Phosphatase 66 U/L (46-116); Aspartate Amino Transferase 19 U/L (15-37); BUN Creatinine Ratio 24.1; Bilirubin Total 0.6 mg/dL (0.2-1.0); Carbon Dioxide 27.5 mmol/L (21.0-32.0); Chloride 98 mmol/L (98-107); Estimated GFR (African America >60 (>=60); Estimated GFR (Non-African Ame >60 (>=60); Globulin 3.6 g/dL; Glucose 131 mg/dL (74-106); Potassium 4.5 mmol/L (3.5-5.1); Sodium 132 mmol/L (136-145); Total Protein 6.4 g/dL (6.4-8.2)
[2023-06-07] MEDS: ONDANSETRON PF 4 MG/2 ML VIAL IV (09:24)
--- NOTE | 2023-06-07 09:38 | PC.NURSE ---
0835 labs drawn per lab staff as well as blood cultures.
--- NOTE | 2023-06-07 09:41 | PC.NURSE ---
refuses respiratory panel due to cost and just having one done less than [address] Parish notified of complaints of nausea and dry heaves. also notified of refusal of respiratory panel. orders received
--- NOTE | 2023-06-07 09:42 | PC.NURSE ---
0920 blood cultures mohan from picc. medicated with zofran 4 mg ivp 0930 picc saline lock flushed, nausea better, released ambulatory
[2023-06-07 09:48] LABS: Influenza Virus A Antigen Negative; Influenza Virus B Antigen Negative; Internal Control Within Normal Limits
[2023-06-07 09:49] LABS: SARS-CoV-2 Ag NEGATIVE (NEGATIVE)
[2023-06-08 07:55] VITALS: BP 123/56; PULSE 88; RESP 16; TEMP 36.5; O2SAT 96
[2023-06-08] MEDS: CEFTRIAXONE 2,000 MG in 0.9 % SODIUM CHLORIDE 100 ML 200 MG IV (08:05)
[2023-06-09] MEDS: CEFTRIAXONE 2,000 MG in 0.9 % SODIUM CHLORIDE 100 ML 200 MG IV (08:06)
[2023-06-09 08:12] VITALS: BP 148/67; PULSE 99; RESP 18; TEMP 36.6; O2SAT 97
[2023-06-10 08:00] VITALS: BP 138/63; PULSE 91; RESP 18; TEMP 36.4; O2SAT 95
[2023-06-10] MEDS: CEFTRIAXONE 2,000 MG in 0.9 % SODIUM CHLORIDE 100 ML 200 MG IV (08:03)
--- NOTE | 2023-06-10 08:11 | PC.NURSE ---
Patient is here for Rocephin, pt arrived with PICC in right arm, good blood return noted. He denies any issues at this time. He is tolerating rocephin well.
[2023-06-11 08:02] VITALS: BP 136/64; PULSE 94; RESP 18; TEMP 36.2; O2SAT 98
[2023-06-11] MEDS: CEFTRIAXONE 2,000 MG in 0.9 % SODIUM CHLORIDE 100 ML 200 MG IV (08:08)
[2023-06-12] MEDS: CEFTRIAXONE 2,000 MG in 0.9 % SODIUM CHLORIDE 100 ML 200 MG IV (08:04)
[2023-06-12 08:13] VITALS: BP 148/67; PULSE 92; RESP 18; TEMP 36.3; O2SAT 94
--- NOTE | 2023-06-12 08:19 | PC.NURSE ---
0800 Arrival ambulatory, alert oriented. PICC intact rt upper arm, site clear, excellent blood return noted. 0805 IV rocephin initiated.
[2023-06-13 08:07] VITALS: BP 149/76; PULSE 103; RESP 18; TEMP 36.1; O2SAT 94
[2023-06-13] MEDS: CEFTRIAXONE 2,000 MG in 0.9 % SODIUM CHLORIDE 100 ML 200 MG IV (08:12)
--- NOTE | 2023-06-13 08:14 | PC.NURSE ---
0800 Arrival ambulatory, alert oriented. PICC intact rt upper arm, site clear, Dressing change under sterile technique, 0 cm external catheter, excellent blood return noted. 0815 IV rocephin initiated.
[2023-06-14 07:59] VITALS: BP 144/77; PULSE 96; RESP 18; TEMP 35.9; O2SAT 92
[2023-06-14] MEDS: CEFTRIAXONE 2,000 MG in 0.9 % SODIUM CHLORIDE 100 ML 200 MG IV (08:08)
--- NOTE | 2023-06-14 08:12 | PC.NURSE ---
0800 Arrival ambulatory to chair 1. alert oriented. PICC intact rt upper arm, dresssing sl peeling back on lateral side, 2.3 tegaderm applied over edge of dressing. 0807 IV rocephin initiated
[2023-06-15] MEDS: CEFTRIAXONE 2,000 MG in 0.9 % SODIUM CHLORIDE 100 ML 200 MG IV (08:33)
[2023-06-15 08:35] VITALS: BP 138/70; PULSE 104; RESP 18; TEMP 36.4; O2SAT 95
[2023-06-16 11:16] VITALS: BP 127/61; PULSE 104; RESP 18; TEMP 36.7; O2SAT 92
[2023-06-16] MEDS: CEFTRIAXONE 2,000 MG in 0.9 % SODIUM CHLORIDE 100 ML 200 MG IV (11:24)
[2023-06-17] MEDS: CEFTRIAXONE 2,000 MG in 0.9 % SODIUM CHLORIDE 100 ML 200 MG IV (08:06)
[2023-06-17 08:17] VITALS: BP 161/61; PULSE 98; RESP 18; TEMP 36.3; O2SAT 98
--- NOTE | 2023-06-17 08:18 | PC.NURSE ---
0802: Pt. to [facility] amb. for daily antibiotics. Seated in recliner. VSS. PICC line to right upper arm in place and without s&s of infection or infiltration. Flushes easily with good blood return. 0806: IV Rocephin initiated at this time. Pt. denies needs or c/o.
--- NOTE | 2023-06-17 08:38 | PC.NURSE ---
0837: IV antibiotic completed without adverse reaction. PICC line flushed with saline. D/c'd amb. to home.
[2023-06-18] MEDS: CEFTRIAXONE 2,000 MG in 0.9 % SODIUM CHLORIDE 100 ML 200 MG IV (08:07)
[2023-06-18 08:13] VITALS: BP 149/72; PULSE 97; RESP 18; TEMP 35.9; O2SAT 91
--- NOTE | 2023-06-18 08:15 | PC.NURSE ---
0805 arrival ambulatory to chair 1. alert oriented, picc intact rt upper arm, site clear excellent blood return, flushes easily 0810 iv atb initiated over 30 mins
[2023-06-19 08:09] VITALS: BP 136/68; PULSE 104; RESP 18; TEMP 35.9; O2SAT 91
[2023-06-19] MEDS: CEFTRIAXONE 2,000 MG in 0.9 % SODIUM CHLORIDE 100 ML 200 MG IV (08:15)
--- NOTE | 2023-06-19 08:16 | PC.NURSE ---
0805 arrival ambulatory, alert oriented. PICC intact rt upper arm, site clear. 0815 excellent blood return, IV atb initiated.
[2023-06-19] MEDS: VANCOMYCIN HCL 2,000 MG in 0.9 % SODIUM CHLORIDE 500 ML 250 MG IV ×2 (09:32→19:55)
--- NOTE | 2023-06-19 09:34 | PC.NURSE ---
0900 Dr. Parish's office called with change in orders, no longer will be receiviing jermaine, C&S report returned to Dr Parish, patient will no be getting meropentum every 6 hours[address] discussed with Dr. Parish, will be getting IV vancomycin q12h rather than every 6 hour dosing of meropentum. patient made aware of this. verbalizes understanding.
--- NOTE | 2023-06-19 09:37 | PC.NURSE ---
0930 IV vancomycin initiated as ordered via picc rt upper arm.
[2023-06-19 20:05] VITALS: BP 168/72; PULSE 100; RESP 16; TEMP 36.8; O2SAT 100
[2023-06-20] MEDS: VANCOMYCIN HCL 2,000 MG in 0.9 % SODIUM CHLORIDE 500 ML 250 MG IV (08:37)
[2023-06-20 08:50] VITALS: BP 170/66; PULSE 112; RESP 24; TEMP 36.6; O2SAT 77
--- NOTE | 2023-06-20 08:54 | PC.NURSE ---
0815: Pt. to [facility] amb. Seated in recliner. Pt. appears dyspneic. Relays dyspnea with exertion and states has been occurring over last couple of days. Spo2 77% on room air. Slowly increases to 85%. Denies chest pain. Relays having chest pressure past couple of days with exertion. O2 applied at 2L n/c. PICC line in place to right upper arm and without s&s of infection. Flushes easily with good blood return. IV Vancomycin initiated at this time as ordered. 0825: Dr. Parish called per. Rickie RN. Notified of pt. status. Instructs to send pt. to ED for evaluation. Using sterile technique, PICC line dressing changed at this time. Pt. tolerates without c/o. Pt. aware of need for ED transfer, verbalizes understanding. 0844: Pt. transported to ED via w/c and portable O2 at 2L n/c per. Rickie RN. Report given to WILLI Lou.
--- OUTSIDE RECORDS SUMMARY | 2023-06-24 07:55 | XMS_ITS | CCD ---
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 (Lioresal) tablet 10 mg, 10 mg, oral, BID, Chauncey Kirk MD, 10 mg at 06/23/23 1009 DAPTOmycin 500 mg (Cubicin) 1,150 mg in sodium chloride 0.9 % 50 mL IVPB, 10 mg/kg (Adjusted), intravenous, q24h, Carlos Shaver MD, Stopped at 06/22/23 1758 HYDROcodone-acetaminophen (Gateway) 7.5-325 mg per tablet 1 tablet, 1 tablet, oral, BID PRN, Mauri Brown MD, 1 tablet at 06/23/23 0359 lisinopril tablet 10 mg, 10 mg, oral, Daily, Mauri Brown MD, 10 mg at 06/23/23 1009 morphine injection 1 mg, 1 mg, intravenous, q4h PRN, Negin Torrez MD Oxygen Therapy, , inhalation, Continuous PRN, Negin Torrez MD, Given at 06/21/23 0928 pantoprazole (ProtoNix) injection 40 mg, 40 mg, intravenous, q24h WOOD, Mauri Brown MD, 40 mg at 06/23/23 1009 Insert peripheral IV, , , Once AND Saline lock IV, , , Once AND sodium chloride flush 10 mL, 10 mL, intravenous, q8h PRN, Mauri Brown MD Allergies: No Known Allergies Exam: Vitals reviewed: Temp: [36.5 ???C (97.7 ???F)-36.7 ???C (98.1 ???F)] 36.6 ???C (97.9 ???F) Heart Rate: [85-98] 95 Resp: [16-19] 18 BP: (119-137)/(40-59) 119/42 I/O last 3 completed shifts: In: 6215.3 (39 mL/kg) [P.O.:2160; I.V.:2105.3 (13.2 mL/kg); IV Piggyback:1950] Out: - (0 mL/kg) Weight: 159.4 kg I/O this shift: In: 560 [P.O.:360; IV Piggyback:200] Out: - Constitutional: In no apparent distress, resting comfortably in chair Neuro: GCS 15/15. Attention and memory intact. No dysarthria or aphasia. Sensation: Intact to light touch L2-S1 dermatomes bilaterally. Musculoskeletal: Hip flexors 5/5 bilaterally. Knee flexors and extensors 5/5 bilaterally. Ankle dorsal flexors 5/5 bilaterally. EHL 5/5 bilaterally. Ankle plantar flexors 5/5 bilaterally. Muscle tone without hyper or hypotonicity. Muscle bulk appropriate for age. Deep tendon reflexes: Patellar 2+ bilaterally. Babinski absent bilaterally. Labs: Admission on 06/20/2023 Component Date Value Ref Range Status Sodium 06/21/2023 135 (L) 136 - 145 mmol/L Final Potassium 06/21/2023 4.2 3.5 - 5.1 mmol/L Final Chloride 06/21/2023 100 98 - 107 mmol/L Final CO2 06/21/2023 28 21 - 31 mmol/L Final Anion Gap 06/21/2023 11 7 - 20 mmol/L Final BUN 06/21/2023 14 7 - 25 mg/dL Final Creatinine 06/21/2023 0.83 0.70 - 1.30 mg/dL Final BUN/Creatinine Ratio 06/21/2023 16.9 Final Glucose 06/21/2023 101 (H) 70 - 100 mg/dL Final Calcium 06/21/2023 8.9 8.6 - 10.3 mg/dL Final AST 06/21/2023 11 (L) 13 - 39 U/L Final ALT (SGPT) 06/21/2023 14 7 - 52 U/L Final Alkaline Phosphatase 06/21/2023 47 34 - 104 U/L Final Total Protein 06/21/2023 6.1 (more content not included)... Normal [facility] 30on 06-22-2023 30 The patient is Moder ately Stable - Low risk of patient condition declining or worsening The patient's goals for the shift include comfort The clinical goals for the shift include vss/pain management Problem: Pain - Adult Goal: Verbalizes/displays adequate comfort level or baseline comfort level Outcome: Progressing Problem: Safety - Adult Goal: Free from fall injury Outcome: Progressing Flowsheets (Taken 06/22/20231999) Free from fall injury: Assess patient frequently for physical needs Identify cognitive and physical deficits and behaviors that affect risk of falls [place] fall precautions as indicated by assessment Educate patient/family on patient safety, including physical limitations Instruct patient to call for assistance with activity based on assessment Modify environment to reduce risk of injury Consider OT/PT consult to assist with strengthening/mobility Problem: Discharge Planning Goal: Discharge to home or other facility with appropriate resources Outcome: Progressing Flowsheets (Taken 06/22/2023 194) Discharge to home or other facility with appropriate resources: Identify barriers to discharge with patient and caregiver Arrange for needed discharge resources and transportation as appropriate Identify discharge learning needs (meds, wound care, etc) Refer to discharge planning if patient needs post-hospital services based on physician order or complex needs related to functional status, cognitive ability or social support system Problem: Chronic Conditions and Co-morbidities Goal: Patient's chronic conditions and co-morbidity symptoms are monitored and maintained or improved Outcome: Progressing Flowsheets (Taken 06/22/20231940) Care Plan - Patient's Chronic Conditions and Co-Morbidity Symptoms are Monitored and Maintained or Improved: Monitor and assess patient's chronic conditions and comorbid symptoms for stability, deterioration, or improvement Collaborate with multidisciplinary team to address chronic and comorbid conditions and prevent exacerbation or deterioration Update acute care plan with appropriate goals if chronic or comorbid symptoms are exacerbated and prevent overall improvement and discharge Normal [facility] 30 Problem: Pain - Adul t Goal: Verbalizes/displays adequate comfort level or baseline comfort level Outcome: Progressing Flowsheets (Taken 06/22/2023804) Verbalizes/displays adequate comfort level or baseline comfort level: Encourage patient to monitor pain and request assistance Assess pain using appropriate pain scale Administer analgesics based on type and severity of pain and evaluate response Implement non-pharmacological measures as appropriate and evaluate response Problem: Safety - Adult Goal: Free from fall injury Outcome: Progressing Flowsheets (Taken 06/22/2023804) Free from fall injury: Assess patient frequently for physical needs Identify cognitive and physical deficits and behaviors that affect risk of falls [place] fall precautions as indicated by assessment Educate patient/family on patient safety, including physical limitations Instruct patient to call for assistance with activity based on assessment Modify environment to reduce risk of injury Consider OT/PT consult to assist with strengthening/mobility Problem: Discharge Planning Goal: Discharge to home or other facility with appropriate resources Outcome: Progressing Flowsheets (Taken 06/22/2023804) Discharge to home or other facility with appropriate resources: Identify barriers to discharge with patient and caregiver Arrange for needed discharge resources and transportation as appropriate Identify discharge learning needs (meds, wound care, etc) Problem: Chronic Conditions and Co-morbidities Goal: Patient's chronic conditions and co-morbidity symptoms are monitored and maintained or improved Outcome: Progressing Flowsheets (Taken 06/22/2023804) Care Plan - Patient's Chronic Conditions and Co-Morbidity Symptoms are Monitored and Maintained or Improved: Monitor and assess patient's chronic conditions and comorbid symptoms for stability, deterioration, or improvement Collaborate with multidisciplinary team to address chronic and comorbid conditions and prevent exacerbation or deterioration Update acute care plan with appropriate goals if chronic or comorbid symptoms are exacerbated and prevent overall improvement and discharge Problem: Neurosensory - Adult Goal: Achieves stable or improved neurological status Outcome: Progressing Flowsheets (Taken 06/22/2023804) Achieves stable or improved neurological status: Assess for and report changes in neurological status Initiate measures to prevent increased intracranial pressure Maintain blood pressure and fluid volume within ordered parameters to optimize cerebral perfusion and minimize risk of hemorrhage Monitor temperature, glucose, and sodium. Initiate appropriate interventions as ordered Problem: Respiratory - Adult Goal: Achieves optimal ventilation and oxygenation Outcome: Progressing Flowsheets (Taken 06/22/2023804) Achieves optimal ventilation and oxygenation: Assess for changes in respiratory status Assess for changes in mentation and behavior Position to facilitate oxygenation and minimize respiratory effort Oxygen supplementation based on oxygen saturation or arterial blood gases Respiratory therapy support as indicated Problem: Cardiovascular - Adult Goal: Maintains optimal cardiac output and hemodynamic stability Outcome: Progressing Flowsheets (Taken 06/22/2023804) Maintains optimal cardiac output and hemodynamic stability: Monitor blood pressure and heart rate Monitor urine output and notify Licensed Independent Practitioner for values outside of normal range Assess for signs of decreased cardiac output Problem: Skin/Tissue Integrity - Adult Goal: Skin integrity remains intact Outcome: Progressing Flowsheets (Taken 06/22/2023804) Skin integrity remains intact: Monitor for areas of redness and/or skin breakdown Problem: Musculoskeletal - Adult Goal: Return mobility to safest level of function Outcome: Progressing Flowsheets (Taken 06/22/2023804) Return mobility to safest level of function: Assess patient stability and activity tolerance for standing, transferring and ambulating with or without assistive devices Assist with transfers and ambulation using safe patient handling equipment as needed Ensure adequate protection for wounds/incisions during mobilization Obtain physical therapy/occupational therapy consults as needed Instruct patient/family in ordered activity level Problem: Gastrointestinal - Adult Goal: Maintains or returns to baseline bowel function Outcome: Progressing Flowsheets (Taken 06/22/2023804) Maintains or returns to baseline bowel function: Assess bowel function Encourage oral fluids to ensure adequate hydration Encourage mobilization and activity Problem: Genitourinary - Adult Goal: Absence of urinary retention Outcome: Progressing Flowsheets (Taken 06/22/2023804) Absence of urinary retention: Assess patient???s ability to void and empty bladder (more content not included)... Normal [facility] APTTon 06-22-2023 ACTIVATED PARTIAL THROMBOPLASTIN TIME IN PPP BY COAGULATION ASSAY 31.2 Seconds Normal 25.0-35.0 [facility] Comment on above: Result Comment: Clin ical significance of the APTT is questionable in the presence of heparin. Performed By: #### L [id number] #### [facility] ([facility]) [address] [place] [address] CBC WITH AUTO DIFFERENTIALon 06-22-2023 Basophils (Bld) [#/Vol] 0.03 10*3/uL Normal 0.00-0.20 [facility] Comment on above: Performed By: #### L [id number] ####[facility] ([facility])[address] [place] [address] Basophils/100 WBC (Bld) 0.4 % Normal 0.0-1.0 [facility] Comment on above: Performed By: #### L [id number] ####[facility] ([employer])[address] [facility] [facility] [place] [address] Eosinophils (Bld) [#/Vol] 0.39 10*3/uL Normal 0.00-0.50 [facility] Comment on above: Performed By: #### L [id number] ####[facility] ([facility])[address] [place] [address] Eosinophils/100 WBC (Bld) 5.0 % Normal 0.0-6.0 [facility] Comment on above: Performed By: #### L [id number] ####[facility] ([facility])[address] [place] [address] Erythrocyte distribution width (RBC) [Ratio] 16.3 % High 11.5-15.0 [facility] Comment on above: Performed By: #### L [id number] ####[facility] ([facility])[address] [place] [address] ERYTHROCYTE MEAN CORPUSCULAR HEMOGLOBIN CONCENTRATION (G/DL) BY AUTOMATED 33.1 g/dL Normal 32.0-35.0 [facility] Comment on above: Performed By: #### L [id number] ####[facility] ([facility])[address] [place] [address] Hematocrit (Bld) [Volume fraction] 35.6 % Low 39.0-55.0 [facility] Comment on above: Performed By: #### L [id number] ####[facility] ([facility])[address] [place] [address] Hemoglobin (Bld) [Mass/Vol] 11.8 g/dL Low 13.0-17.0 [facility] Comment on above: Performed By: #### L [id number] ####[facility] ([facility])[address] [place] [address] Immature granulocytes (Bld) [#/Vol] 0.02 10*3/uL Normal 0.00-0.20 [facility] Comment on above: Performed By: #### L [id number] ####[facility] ([facility])[address] [place] [address] Immature granulocytes/100 WBC (Bld) 0.3 % Normal 0.0-1.0 [facility] Comment on above: Performed By: #### L [id number] ####[facility] ([facility])[address] [place] [address] Lymphocytes (Bld) [#/Vol] 0.72 10*3/uL Low 1.20-4.00 [facility] Comment on above: Performed By: #### L [id number] ####[facility] ([facility])[address] [place] [address] Lymphocytes/100 WBC (Bld) 9.2 % Low 20.0-45.0 [facility] Comment on above: Performed By: #### L [id number] ####[facility] ([facility])[address] [place] [address] MCH (RBC) [Entitic mass] 29.0 pg Normal 27.0-33.0 [facility] Comment on above: Performed By: #### L [id number] ####[facility] ([facility])[address] [place] [address] MCV (RBC) [Entitic vol] 87.5 fL Normal 82.0-98.0 [facility] Comment on above: Performed By: #### L [id number] ####[facility] ([facility])[address] [place] [address] Monocytes (Bld) [#/Vol] 0.41 10*3/uL Normal 0.10-1.00 [facility] Comment on above: Performed By: #### L [id number] ####[facility] ([facility])[address] [place] [address] Monocytes/100 WBC (Bld) 5.2 % Normal 5.0-12.0 [facility] Comment on above: Performed By: #### L [id number] ####[facility] ([facility])[address] [place] [address] Neutrophils (Bld) [#/Vol] 6.24 10*3/uL Normal 1.60-7.60 [facility] Comment on above: Performed By: #### L [id number] ####[facility] ([facility])[address] [place] [address] Neutrophils/100 WBC (Bld) 79.9 % High 40.0-72.0 [facility] Comment on above: Performed By: #### L [id number] ####[facility] ([facility])[address] [place] [address] NRBC (PER 100 WBCS) BY AUTOMATED COUNT 0.0 % Normal 0 [facility] Comment on above: Performed By: #### L [id number] ####[facility] ([facility])[address] [place] [address] PLATELETS (10*3/UL) IN BLOOD AUTOMATED COUNT 110 10*3/uL Low 150-400 [facility] Comment on above: Performed By: #### L [id number] ####[facility] ([facility])[address] [place] [address] RBC (Bld) [#/Vol] 4.07 10*6/uL Low 4.20-5.70 [facility] Comment on above: Performed By: #### L [id number] ####[facility] ([facility])[address] [place] [address] WBC (Bld) [#/Vol] 7.81 10*3/uL Normal 4.00-10.60 [facility] Comment on above: Performed By: #### L [id number] ####[facility] ([facility])[address] [address] CKon 06-22-2023 CREATINE KINASE (U/L) IN SER/PLAS 22.0 U/L Low 30.0-223.0 [facility] Comment on above: Performed By: #### L [id number] #### [facility] ([facility]) [address] [place] [address] COMPREHENSIVE METABOLIC PANE [facility] 06-22-2023 Albumin [Mass/Vol] 4.0 g/dL Normal 3.5-5.7 [facility] Comment on above: Performed By: #### L [id number] #### [facility] ([facility]) [address] [place] [address] ALP [Catalytic activity/Vol] 52 U/L Normal 34-104 [facility] Comment on above: Performed By: #### L [id number] #### [facility] ([facility]) [address] [place] [address] ALT [Catalytic activity/Vol] 13 U/L Normal 7-52 [facility] Comment on above: Performed By: #### L [id number] #### [facility] ([facility]) [address] [place] [address] Anion gap [Moles/Vol] 12 mmol/L Normal 7-20 [facility] Comment on above: Performed By: #### L [id number] #### [facility] ([facility]) [address] [place] [address] AST [Catalytic activity/Vol] 9 U/L Low 13-39 [facility] Comment on above: Performed By: #### L [id number] #### [facility] ([facility]) [address] [place] [address] Bilirubin [Mass/Vol] 1.1 mg/dL High 0.3-1.0 [facility] Comment on above: Performed By: #### L [id number] #### [facility] ([facility]) [address] [place] [address] Calcium [Mass/Vol] 9.1 mg/dL Normal 8.6-10.3 [facility] Comment on above: Performed By: #### L [id number] #### [facility] ([facility]) [address] [place] [address] Chloride [Moles/Vol] 100 mmol/L Normal 98-107 [facility] Comment on above: Performed By: #### L [id number] #### [facility] ([facility]) [address] [place] [address] CO2 [Moles/Vol] 26 mmol/L Normal 21-31 [facility] Comment on above: Performed By: #### L [id number] #### [facility] ([facility]) [address] [place] [address] Creatinine [Mass/Vol] 0.82 mg/dL Normal 0.70-1.30 [facility] Comment on above: Performed By: #### L [id number] #### [facility] ([facility]) [address] [place] [address] GLOMERULAR FILTRATION RATE ML/MIN/1.73 SQ M.PREDICTED 107.0 mL/min/1.73m*2 Normal >60.0 [facility] Comment on above: Result Comment: The [facility]???s estimated glomerular filtration rate (eGFR) will no longer include consideration of race in its calculation. The National Kidney Foundation???s eGFR Task Force developed new recommendations for the estimation of the glomerular filtration rate in the [place] They recommend immediate implementation of the new equation refit without the race variable in all laboratories because the calculation does not include race. In addition to not including race in the calculation and reporting, it included diversity in its development, and has acceptable performance characteristics and potential consequences that do not disproportionately affect any one group of individuals. Performed By: #### L [id number] #### [facility] ([facility]) [address] [place] [address] Glucose [Mass/Vol] 161 mg/dL High 70-100 [facility] Comment on above: Performed By: #### L [id number] #### [facility] ([facility]) [address] [place] [address] Potassium [Moles/Vol] 4.0 mmol/L Normal 3.5-5.1 [facility] Comment on above: Performed By: #### L [id number] #### [facility] ([facility]) [address] [place] [address] Protein [Mass/Vol] 6.3 g/dL Normal 6.0-8.3 [facility] Comment on above: Performed By: #### L [id number] #### [facility] ([facility]) [address] [place] [address] Sodium [Moles/Vol] 134 mmol/L Low 136-145 [facility] Comment on above: Performed By: #### L [id number] #### [facility] ([facility]) [address] [place] [address] Urea nitrogen [Mass/Vol] 14 mg/dL Normal 7-25 [facility] Comment on above: Performed By: #### L [id number] #### [facility] ([facility]) [address] [place] [address] UREA NITROGEN/CREATININE (MASS RATIO) IN SER/PLAS 17.1 Normal [facility] Comment on above: Performed By: #### L [id number] #### [facility] ([facility]) [address] [place] [address] CONSULTon 06-22-2023 CONSULT ------ -- Attestation signed by Zackery Martinez MD at 06/23/2023 1:03 PM I reviewed the salient portions of the patient history. I have seen and examined the patient during rounds with the resident/fellow. I repeated the nash components of the exam. Agree with the noted assessment and plan. Zackery Martinez MD [facility] Pulmonary interventional and Critical Care Medicine -- Pulmonology Consult Patient : Nehal Baig : 1970 Location: [id number] Attending: Negin Torrez MD Admit Date: 06/20/2023 Hospital Day: 2 Reason for Consult: Preop clearance HPI: Nehal Baig is an 52 y.o. male 52 years old white male transferred from [facility] where he was admitted with concern for aortic valve valve vegetation and had blood cultures positive for Granulicatella adiacens, according to patient admitting doctor both blood cultures/total of 2 were positive. According to patient PCP was admitting doctor's left ventricular ejection fraction on the echo was in normal range he was unable to recall the exact number patient was admitted because of persistent hypoxia and treated for healthcare acquired pneumonia placed on broad-spectrum antibiotics initially was on Rocephin and following blood cultures and echocardiogram done follow-up exertional dyspnea was found to have new valvular vegetation in the aortic area patient blood cultures were sensitive to penicillin meropenem and vancomycin as well as Rocephin. Initially he was treated with Rocephin but following final result which showed resistant to Rocephin he was switched to vancomycin. Patient continues to have dyspnea worse with exertion limiting his activity. PICC line was placed and he was put on vancomycin twice daily to be given as an outpatient patient had fever and chills initially but at the time of examination he denies fever chills night sweats he does feel fatigued and tired denies any increased cough denies chest pain heart palpitation dizziness lightheadedness because of the abnormal finding in the echo and blood positive blood cultures patient physician had called [facility] spoke with the hospitalist so patient can get urgent JUYD patient being transferred to [facility]. Labs from [place] done on 06/19/2023 for white count of 10.9 hemoglobin 12.1 hematocrit 38.8 platelet 112 blood chemistry was within normal range with GFR more than 60 normal sodium at 139 potassium 4.6 ALT 25 his procalcitonin was less than 0.05 respiratory pathogens COVID serology and influenza influenza serology was negative CRP was 0.67 and ESR was 17 his INR was 0.95 and PTT was 26.3. Patient denies any recent surgery/instrumentation. 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 He reports he is able to walk in the feng this on room air without any significant dyspnea. He is a lifelong non-smoker and does not have any chronic respiratory issues. Assessment: -Infective endocarditis with aortic valve vegetations -Dyspnea likely secondary to above -Multiple nodular opacities on CT chest with IV contrast indicating possible pulmonary seeding of the patient's infection. -ARISCAT score of 57 indicating high risk of postop pulmonary complications after valvular surgery for endocarditis. -Currently minimal respiratory concerns Plan: -Given the patient's high risk of postop pulmonary complication pulmonology will remain on consult and will continue to follow. -Provide supplemental oxygen therapy if needed to target SpO2 greater than 92%. -Continue antibiotic management per ID recommendations. -Continue further management and plan for surgical intervention per primary team and CT surgery. Past History/Allergies?Social History: Past Medical History: Diagnosis Date Sleep apnea No Known Allergies Social History Socioeconomic History Marital status: Unknown Spouse name: Not on file Number of children: Not on file Years of education: Not on file Highest education level: Not on file Occupational History Not on file Tobacco Use Smoking status: Never Smokeless tobacco: Never Substance and Sexual Activity Alcohol use: Not Currently Drug use: Never Sexual activity: Not on file Other Topics Concern Not on file Social History Narrative Not on file Social Determinants of Health Financial Resource Strain: Low Risk (06/20/2023) Overall Financial Resource Strain (CARDIA) Difficulty of Paying Living Expenses: Not hard at all Food Insecurity: No Food Insecurity (06/20/2023) Hunger Vital Sign Worried About Running Out of Food in the Last Year: Never true Ran Out of Food in the Last Year: Not on file Transportation Needs: No Tr (more content not included)... Normal [facility] MAGNESIUMon 06-22-2023 Magnesium [Mass/Vol] 1.8 mg/dL Low 1.9-2.7 [facility] Comment on above: Performed By: #### L [id number] #### [facility] ([employer]) [address] [place] [address] PROTIME-INRon 06-22-2023 INR IN PPP BY COAGULATION ASSAY 1.05 Normal 0.90-1.10 [facility] Comment on above: Result Comment: ACCC P RECOMMENDED INR FOR WARFARIN THERAPY CONDITION INR PROPHYLAXIS OF VENOUS THROMBOSIS 2-3 (HIGH-RISK SURGERY) TREATMENT OF VENOUS THROMBOSIS 2-3 TREATMENT OF PULMONARY EMBOLISM 2-3 PREVENTION OF SYSTEMIC EMBOLISM: 2-3 ACUTE MYOCARDIAL INFARCTION TISSUE HEART VALVES VALVULAR HEART DISEASE ATRIAL FIBRILLATION RECURRENT SYSTEMIC EMBOLISM MECHANICAL HEART VALVE 2.5-3.5 FROM: ORAL ANTICOAGULANTS. MECHANISM OF ACTION, CLINICAL EFFECTIVENESS, AND OPTIMAL THERAPEUTIC RANGE. CHEST 1995;108:231S-246S. Performed By: #### L [id number] #### [facility] ([employer]) [address] [place] [address] PROTHROMBIN TIME (PT) IN PPP BY COAGULATION ASSAY 13.7 Seconds Normal 12.3-14.8 [facility] Comment on above: Performed By: #### L [id number] #### [facility] ([employer]) [address] [place] [address] 30on 06-21-2023 30 The patient is Moder ately Stable - Low risk of patient condition declining or worsening The patient's goals for the shift include comfort/rest The clinical goals for the shift include vss Problem: Pain - Adult Goal: Verbalizes/displays adequate comfort level or baseline comfort level Outcome: Progressing Problem: Safety - Adult Goal: Free from fall injury Outcome: Progressing Flowsheets (Taken 06/21/20231999) Free from fall injury: Assess patient frequently for physical needs Identify cognitive and physical deficits and behaviors that affect risk of falls [place] fall precautions as indicated by assessment Educate patient/family on patient safety, including physical limitations Instruct patient to call for assistance with activity based on assessment Modify environment to reduce risk of injury Consider OT/PT consult to assist with strengthening/mobility Problem: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 Asthma, Depression, headaches, headaches, migraines, kidney stones, JACOBY History of seeing any specialist: Dr yung quiñones When was your last doctors visit: Last provider: Dr Aguillon Any recent labs: [facility] around 8 months ago Flu: refused Health Maintenance UTD: Colonoscopy: 2021 PSA: unsure if it has ever been checked Acute: Current issues/complaints: Pt has sleep study done and uses machine would like cpap supplies sent to [facility] in [place] pt does wear full mask- Resmed Air Touch F20 machine is Air Curve 10VAuto Needs refill on lisinopril fYI: pt is seeing Neurology referral was sent through [employer]. 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 pt will have them done at [facility] on Saturday. Ordered: Misc Prescription, Full [...] will send order to medical supplies in [place] Ordered: Misc Prescription, Full Mask Resmed Air [...] Daily, # 90 tab(s), Refills(s) 3, Pharmacy: [facility]/pharmacy #[id number], 185.5, cm, 01/09/23 16:37:00 EDT, Height/Length Dosing, 174.3, kg, 01/09/23 16:37:00 EDT, Weight Dosing Follow-up No qualifying data (more content not included)... Normal [facility] Comment on above: Result Comment: Elec tronically Signed By: Vonnie Gardner\Date and Time Signed: 04/30/23 14:06 EST Operative Reporton Operative Report [id number]#1.00TIFF Normal [facility] MR SHOULDER LEFT WO IV CONTR Kyle [...] Not Available Comment on above: Order Comment: [facility] - C9 Approved Patient had Left Shoulder surgery 1 year ago Previous MRI Lab Reportson 03-14-2023 Lab Reports [id number]#1.00TIFF Normal [facility] Lab Miscellaneous-LCon 03-13 Lab Miscellaneous See Ref Report Invalid Interpretation Code [facility] Comment on above: Performed By: #### 1 [id number] ####[facility] [address] [place] [address] Reference Lab Reporton 03-13 Reference Lab Report [id number]#1.00TIFF Normal [facility] Lab Miscellaneous-LCon 03-12 Lab Miscellaneous See Ref Report Invalid Interpretation Code [facility] Comment on above: Result Comment: Perf ormed at: [address] [id number] PhD João Blankenship See scanned report Performed at: [address] [id number] PhD João Blankenship Performed By: #### 1 [id number] ####[facility] [address] [place] [address] Reference Lab Reporton 03-12 Reference Lab Report [id number]#1.00TIFF Normal [facility] Lab Miscellaneous-LCon 03-08 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 Performed By: #### 2 134429, [id number], [id number] ####[facility] [address] [place] [address] Basophils/Leukocytes Auto (Bld) [Pure # fraction] 0.1 E9/L Normal 0.0-0.2 [facility] Comment on above: Order Comment: Order Added by Discern Expert. Performed By: #### 2 945606, 6824782, 5952928 ####[facility] [address] [place] [address] Eosinophils/100 WBC (Bld) 2.6 % Normal 0.0-8.0 [facility] Comment on above: Order Comment: Order Added by Discern Expert. Performed By: #### 2 793913, 8342849, 0567256 ####[facility] [address] [place] [address] Eosinophils/Leukocyt es Auto (Bld) [Pure # fraction] 0.2 E9/L Normal 0.0-0.5 [facility] Comment on above: Order Comment: Order Added by Discern Expert. Performed By: #### 2 303397, 2102378, 2833449 ####[address] [place] [address] Lymphocytes/100 WBC (Bld) 18.6 % Normal 14.0-50.0 [facility] Comment on above: Order Comment: Order Added by Wilbert Expert. Performed By: #### 2 830107, 0528975, 6680579 ####[address] [address] Lymphocytes/Leukocyt es Auto (Bld) [Pure # fraction] 1.3 E9/L Normal 1.0-4.0 [facility] Comment on above: Order Comment: Order Added by Wilbert Expert. Performed By: #### 2 100391, 1345940, 8737426 ####[address] [address] Monocytes/100 WBC (Bld) 10.3 % Normal 4.0-14.0 [facility] Comment on above: Order Comment: Order Added by Discern Expert. Performed By: #### 2 701309, 0598016, 9915554 ####[facility] [address] [place] [address] Monocytes/Leukocytes Auto (Bld) [Pure # fraction] 0.7 E9/L Normal 0.2-1.0 [facility] Comment on above: Order Comment: Order Added by Wilbert Expert. Performed By: #### 2 338303, 5268534, 6663652 ####[facility] [address] [place] [address] Neutrophils/100 WBC (Bld) 67.8 % Normal 36.0-75.0 [facility] Comment on above: Order Comment: Order Added by Discern Expert. Performed By: #### 2 619604, 4260956, 3832482 ####[address] [place] [address] Neutrophils/Leukocyt es Auto (Bld) [Pure # fraction] 4.8 E9/L Normal 2.0-7.5 [facility] Comment on above: Order Comment: Order Added by Discern Expert. Performed By: #### 2 737136, 4006540, 3489191 ####[address] [address] CBC w/ Auto Diffon 3 Erythrocyte distribution width (RBC) [Ratio] 13.1 % Normal 10.9-14.2 [facility] Comment on above: Performed By: #### 2 008693, 9679443, 9384076 ####[address] [address] Hematocrit (Bld) [Volume fraction] 39.2 % Normal 37.7-49.0 [facility] Comment on above: Performed By: #### 2 635131, 2507985, 8670356 ####[address] [address] Hemoglobin (Bld) [Mass/Vol] 13.4 g/dL Low 13.5-17.5 [facility] Comment on above: Performed By: #### 2 421110, 0216242, 8733874 ####[address] [address] MCH (RBC) [Entitic mass] 29.0 pg Normal 27.0-34.0 [facility] Comment on above: Performed By: #### 2 316782, 1848049, 5461030 ####[address] [place] [address] MCHC (RBC) [Mass/Vol] 34.3 g/dL Normal 31.4-36.0 [facility] Comment on above: Performed By: #### 2 368811, 7456423, 2696463 ####[facility] [address] [place] [address] MCV (RBC) [Entitic vol] 84.6 fL Normal 80.0-100.0 [facility] Comment on above: Performed By: #### 2 418517, 2752922, 4165391 ####[address] [address] Platelet mean volume (Bld) [Entitic vol] 7.7 fL Normal 6.4-10.8 [facility] Comment on above: Performed By: #### 2 552760, 0492361, 3357653 ####[address] [address] Platelets (Bld) [#/Vol] 261.0 E9/L Normal 150.0-500. 0 [facility] Comment on above: Performed By: #### 2 609189, 8176913, 4661988 ####[address] [address] RBC (Bld) [#/Vol] 4.6 E12/L Normal 4.3-5.9 [facility] Comment on above: Performed By: #### 2 327611, 6043661, 9497621 ####[address] [address] WBC corrected for nucl RBC Auto (Bld) [#/Vol] 7.1 E9/L Normal 4.0-11.0 [facility] Comment on above: Performed By: #### 2 814097, 2514118, 7295895 ####[facility] [address] [place] [address] CHEMISTRYOrdered By: SYSTEM SYSTEM on 03-07-2023 CRP [Mass/Vol] 1.8 mg/dL Normal <=1.9mg/dL [facility] Remis ol CRPon 03-07-2023 CRP [Mass/Vol] 1.8 mg/dL Normal <=1.9 [facility] Comment on above: Performed By: #### 2 204677, 1152960, 7802307 ####[facility] [address] [id number] Consent for Treatmenton Consent for Treatment [id number]#1.00TIFF Normal [facility] Erythrocyte Sedimentation Ra aniya 03-07-2023 ESR (Bld) [Velocity] 9 mm/h Normal 0-19 [facility] Comment on above: Result Comment: PERF ORMED BY: [place] [address] PATHOLOGIST MACHINIST GENERAL BARI GREENE M.D. Performed By: #### E #### [address] Erythrocyte sedimentation ra te by Photometric methodOrdered By: Huan Cowan on 03-07-2023 ESR Photometric method (Bld) [Velocity] 9 mm/hr 0- [facility] HEMATOLOGYOrdered By: SYSTEM SYSTEM on 03-07-2023 [...] 67.8 % Normal 36.0 - 75.0 % [facility] HemeAutoSS Neutrophils/Leukocyt es Auto (Bld) [Pure # fraction] 4.8 E9/L Normal 2.0 - 7.5 E9/L [facility] HemeAutoSS HEMATOLOGYOrdered By: Juanita Chen on 03-07-2023 Erythrocyte distribution width (RBC) [Ratio] 13.1 % Normal 10.9 - 14.2 % [facility] HemeAutoSS Hematocrit (Bld) [Volume fraction] 39.2 % Normal 37.7 - 49.0 % [facility] HemeAutoSS Hemoglobin (Bld) [Mass/Vol] 13.4 g/dL Low 13.5 - 17.5 gm/dL [facility] HemeAutoSS MCH (RBC) [Entitic mass] 29.0 pg Normal 27.0 - 34.0 pg [facility] HemeAutoSS MCHC (RBC) [Mass/Vol] 34.3 g/dL Normal 31.4 - 36.0 gm/dL [facility] HemeAutoSS MCV (RBC) [Entitic vol] 84.6 fL Normal 80.0 - 100.0 fL [facility] HemeAutoSS Platelet mean volume (Bld) [Entitic vol] 7.7 fL Normal 6.4 - 10.8 fL [facility] HemeAutoSS Platelets (Bld) [#/Vol] 261.0 E9/L Normal 150.0 - 500.0 E9/L [facility] HemeAutoSS RBC (Bld) [#/Vol] 4.6 E12/L Normal 4.3 - 5.9 E12/L [facility] HemeAutoSS WBC corrected for nucl RBC Auto (Bld) [#/Vol] 7.1 E9/L Normal 4.0 - 11.0 E9/L [facility] HemeAutoSS Lab Miscellaneous-LCon 03-07 Test Code TO [facility] Invalid Interpretation Code [facility] Comment on above: Performed By: #### 1 [id number] ####[address] [place] [address] Test Code 479519 Invalid Interpretation Code [facility] Comment on above: Performed By: #### 1 [id number] ####[address] [place] [address] Test Name SED RATE/FIREAL Invalid Interpretation Code [facility] Comment on above: Performed By: #### 1 [id number] ####[facility] [address] [place] [address] Test Name IL 6 Invalid Interpretation Code [facility] Comment on above: Performed By: #### 1 [id number] ####[facility] [address] [place] [address] Physician Orderon 03-07-2023 Physician Order [id number]#1.00TIFF Normal [facility] Reference Laboratory Testing Ordered By: Yasmeen Ca on 03-07-2023 Sodium [Moles/Vol] 214430 mmol/L Invalid Interpretation Code [facility] SendOuts Test Code TO [facility] Invalid Interpretation Code [facility] SendOuts Test Name SED RATE/FIREAL Invalid Interpretation Code [facility] SendOuts Test Name [place] 6 Invalid Interpretation Code [facility] SendOutsSS Operative Reporton Operative Report [id number]#1.00TIFF Normal [facility] Formson 02-27-2023 Forms [id number]#1.00TIFF Normal [facility] Provider Letteron 02-27-2023 Provider Letter (Inserted Image. Jessica ble to display) [address] [id number] February 27, 2023 NEHAL GAINOK [address] [place] [address] : [address] Mazariegos, The above patient has been evaluated at your request for preoperative clearance. After assessment of available pertinent labs and diagnostic tests, I feel this patient is medically optimized for surgery. Final discretion of whether the patient is cleared for surgery remains up to the surgeon/anesthesiologist. Thank you, MOSHE Mota Normal [facility] Auto Diffon 02-26-2023 Basophils/100 WBC (Bld) 0.6 % Normal 0.0-2.0 [facility] Comment on above: Order Comment: Order Added by Discern Expert. Performed By: #### 2 107016, [id number] ####[address] [address] Basophils/Leukocytes Auto (Bld) [Pure # fraction] 0.1 E9/L Normal 0.0-0.2 [facility] Comment on above: Order Comment: Order Added by Discern Expert. Performed By: #### 2 [id number], [id number] ####[address] [address] Eosinophils/100 WBC (Bld) 2.3 % Normal 0.0-8.0 [facility] Comment on above: Order Comment: Order Added by Wilbert Expert. Performed By: #### 2 [id number] ####[address] [address] Eosinophils/Leukocyt es Auto (Bld) [Pure # fraction] 0.2 E9/L Normal 0.0-0.5 [facility] Comment on above: Order Comment: Order Added by Discern Expert. Performed By: #### 2 [id number] ####[address] [address] Lymphocytes/100 WBC (Bld) 16.2 % Normal 14.0-50.0 [facility] Comment on above: Order Comment: Order Added by Wilbert Expert. Performed By: #### 2 [id number], [id number] ####[address] [address] Lymphocytes/Leukocyt es Auto (Bld) [Pure # fraction] 1.5 E9/L Normal 1.0-4.0 [facility] Comment on above: Order Comment: Order Added by Wilbert Expert. Performed By: #### 2 [id number], [id number] ####[address] [address] Monocytes/100 WBC (Bld) 6.8 % Normal 4.0-14.0 [facility] Comment on above: Order Comment: Order Added by Discern Expert. Performed By: #### 2 [id number], [id number] ####[facility] [id number] [place] [address] Monocytes/Leukocytes Auto (Bld) [Pure # fraction] 0.6 E9/L Normal 0.2-1.0 [facility] Comment on above: Order Comment: Order Added by Discern Expert. Performed By: #### 2 [id number], [id number] ####[address] [address] Neutrophils/100 WBC (Bld) 74.1 % Normal 36.0-75.0 [facility] Comment on above: Order Comment: Order Added by Discern Expert. Performed By: #### 2 [id number], [id number] ####[address] [address] Neutrophils/Leukocyt es Auto (Bld) [Pure # fraction] 6.6 E9/L Normal 2.0-7.5 [facility] Comment on above: Order Comment: Order Added by Discern Expert. Performed By: #### 2 [id number], [id number] ####[address] [address] CBC w/ Auto Diffon 3 Erythrocyte distribution width (RBC) [Ratio] 13.6 % Normal 10.9-14.2 [facility] Comment on above: Performed By: #### 2 [id number], [id number] ####[address] [address] Hematocrit (Bld) [Volume fraction] 40.5 % Normal 37.7-49.0 [facility] Comment on above: Performed By: #### 2 413122, [id number] ####[address] [address] Hemoglobin (Bld) [Mass/Vol] 13.9 g/dL Normal 13.5-17.5 [facility] Comment on above: Performed By: #### 2 [id number], [id number] ####[address] [address] MCH (RBC) [Entitic mass] 28.9 pg Normal 27.0-34.0 [facility] Comment on above: Performed By: #### 2 878438, [id number] ####[address] [address] MCHC (RBC) [Mass/Vol] 34.3 g/dL Normal 31.4-36.0 [facility] Comment on above: Performed By: #### 2 889173, 1778386 ####[place] [address]757 MCV (RBC) [Entitic vol] 84.2 fL Normal 80.0-100.0 [facility] Comment on above: Performed By: #### 2 155219, [id number] ####[place] [address] Platelet mean volume (Bld) [Entitic vol] 7.7 fL Normal 6.4-10.8 [facility] Comment on above: Performed By: #### 2 137975, [id number] ####[place] [address] Platelets (Bld) [#/Vol] 244.0 E9/L Normal 150.0-500. 0 [facility] Comment on above: Performed By: #### 2 484880, 8926301 ####[address] [address] RBC (Bld) [#/Vol] 4.8 E12/L Normal 4.3-5.9 [facility] Comment on above: Performed By: #### 2 661015, 0789220 ####[address] [address] WBC corrected for nucl RBC Auto (Bld) [#/Vol] 8.9 E9/L Normal 4.0-11.0 [facility] Comment on above: Performed By: #### 2 485573, 0187306 ####[address] [address] Consent for Treatmenton 01-31 Consent for Treatment [id number]#1.00TIFF Normal [facility] HEMATOLOGYOrdered By: SYSTEM SYSTEM on 02-26-2023 Basophils/100 [...] 34.3 g/dL Normal 31.4 - 36.0 gm/dL [facility] HemeAutoSS MCV (RBC) [Entitic vol] 84.2 fL Normal 80.0 - 100.0 fL [facility] HemeAutoSS Platelet mean volume (Bld) [Entitic vol] 7.7 fL Normal 6.4 - 10.8 fL [facility] HemeAutoSS Platelets (Bld) [#/Vol] 244.0 E9/L Normal 150.0 - 500.0 E9/L [facility] HemeAutoSS RBC (Bld) [#/Vol] 4.8 E12/L Normal 4.3 - 5.9 E12/L [facility] HemeAutoSS WBC corrected for nucl RBC Auto (Bld) [#/Vol] 8.9 E9/L Normal 4.0 - 11.0 E9/L [facility] HemeAutoSS Physician Orderon 02-26-2023 Physician Order [id number]#1.00TIFF Normal [facility] CHEMISTRYOrdered By: SYSTEM SYSTEM on 02-25-2023 CRP [Mass/Vol] 6.7 mg/dL High <=1.9mg/dL [facility] Remis ol CRPon 02-25-2023 CRP [Mass/Vol] 6.7 mg/dL High <=1.9 [facility] Comment on above: Performed By: #### 2 [id number] ####[facility] [address] [place] [address] Consent for Treatmenton 01-31 Consent for Treatment [id number]#1.00TIFF Normal [facility] ED Note-Physicianon 02-26-20 23 ED Note-Physician [id number]#1.00TIFF Normal [facility] Lab Miscellaneous-LCon 02-25 Test Code 189867 Invalid Interpretation Code [facility] Comment on above: Performed By: #### 1 [id number] ####[facility] [address] [place] [address] Test Name Interleukin-6 Invalid Interpretation Code [facility] Comment on above: Performed By: #### 1 [id number] ####[facility] [address] [place] [address] Physician Orderon 02-25-2023 Physician Order [id number]#1.00TIFF [facility] RAD - MISCon 02-25-2023 RAD - MISC [id number]#1.00TIFF [facility] Reference Laboratory Testing Ordered By: Elysia Oseguera on 02-25-2023 Sodium [Moles/Vol] 895790 mmol/L Invalid Interpretation Code [facility] SendOuts Test Name Interleukin-6 Invalid Interpretation Code [facility] Consultation Noteon 02-20-20 Consultation Note [id number]#1.00TIFF [facility] Operative Reporton 3 Operative Report [id number]#1.00TIFF [facility] Consultation Noteon 01-30-20 Consultation Note [id number]#1.00TIFF [facility] RAD - MRI Reporton 3 RAD - MRI Report [id number]#1.00TIFF [facility] XR cerv spine AP/LAT/FLX/EXT on 01-17-2023 XR cerv spine AP/LAT/FLX/[place] [address] XRay Report Signed Patient: Nehal Baig MR#: [id number] 8 : 1970 Acct:[id number] Age/Sex: 52 / M ADM Date: 01/17/23 Loc: XD Room: Type: [facility] Attending Dr: Siri MALONEY Copies to: HAIDER [...] Khadijah Roach M.D.01/17/2023 4:22 PM Dictation Location: [place] [address] Transcribed By: [facility] 01/17/23 1622 Dictated By: Khadijah Roach MD 01/17/23 1620 Signed By: 01/17/23 1622 Normal [facility] XR lumbar spine 6V w bending on 01-17-2023 XR lumbar spine 6V w bending [facility] [address] [place] [address] [place] [address] XRay Report Signed Patient: Nehal Baig MR#: [id number] 8 : 1970 Acct:[id number] Age/Sex: 52 / M ADM Date: 01/17/23 Loc: XD Room: Type: [facility] Attending Dr: Siri Quezada NP-C Copies to: HAIDER Sewell Ordering Provider: HAIDER [...] Christopher Cedeno M.D.01/17/2023 12:51 PM Dictation Location: [place] [address] Transcribed By: [facility] 01/17/23 1251 Dictated By: Christopher Cedeno DO 01/17/23 1246 Signed By: 01/17/23 1251 [facility] RAD - MISCon 01-16-2023 [facility] [id number]#1.00TIFF [facility] [id number]#1.00TIFF [facility] Lab Reportson 01-14-2023 Lab Reports [id number]#1.00TIFF [facility] Lab Reports [id number]#1.00TIFF [facility] Retail - Clinical Noteon Retail - Clinical Note [id number]#1.00TIFF [facility] Ambulatory Visit Summaryon 1 Ambulatory Visit Summary [...] Depression Obesity shoulder pain sleep disorder Normal [facility] XR ankle LT min 3V*on 2022 XR ankle LT min 3V* [facility] [employer] Other XR ankle LT min 3V* [facility] [employer] Other XR ankle LT min 3V* [address] [employer] Other XR ankle LT min 3V* [place] [address] [employer] Other XR ankle LT min 3V* XRay Report [facility] [employer] Other XR ankle LT min 3V* Signed [employer] Other XR ankle LT min 3V* Patient: Nehal Baig MR#: [id number] [employer] Other XR ankle LT min 3V* 8 [employer] Other XR ankle LT min 3V* : 1970 Acct:[id number] [employer] Other XR ankle LT min 3V* Age/Sex: 52 / M ADM Date: 12/16/22 [employer] Other XR ankle LT min 3V* Loc: XDUCLY Room: pe: REG CLI [employer] Other XR ankle LT min 3V* Attending Dr: Kelly MALONEY [employer] Other XR ankle LT min 3V* Copies to: HAIDER Larson [employer] Other XR ankle LT min 3V* Ordering Provider: HAIDER Rehman [employer] Other XR ankle LT min 3V* Date of Service: 12/16/22 [employer] Other XR ankle LT min 3V* [id number]) XR/XR ankle LT min 3V*: LEFT ANKLE PAIN [employer] Other XR ankle LT min 3V* XR ankle LT min 3V* 12/16/2022 10:31 AM [employer] Other XR ankle LT min 3V* SIGNS AND SYMPTOMS: Pain and swelling of the posterior left ankle [employer] Other XR ankle LT min 3V* PROTOCOL: Frontal, lateral, and oblique radiographs of the left ankle [employer] Other XR ankle LT min 3V* COMPARISON: None [employer] Other XR ankle LT min 3V* FINDINGS: [employer] Other XR ankle LT min 3V* The ankle mortise is preserved. There is no evidence of fracture or dislocation. There is Achilles [employer] Other XR ankle LT min 3V* surface calcaneal spurring. There is soft tissue swelling diffusely which is nonspecific. [employer] Other XR ankle LT min 3V* X R/XR ankle LT min 3V* [employer] Other XR ankle LT min 3V* IMPRESSION: [facility] [employer] Other XR ankle LT min 3V* No fracture. Nor [employer] Other XR ankle LT min 3V* Diffuse soft tissue swelling. [employer] Other XR ankle LT min 3V* There is Achilles castano rface calcaneal spurring. [employer] Other XR ankle LT min 3V* Impression dictated by: Nehal Horner M.D.12/16/2022 10:42 AM [employer] Other XR ankle LT min 3V* Dictation Location: [facility] [employer] Other XR ankle LT min 3V* Transcribed By: MARLO 12/16/22 1042 [employer] Other XR ankle LT min 3V* Dictated By: Nehal Horner II, MD 12/16/22 1042 [employer] Other XR ankle LT min 3V* Signed By: [employer] Other XR ankle LT min 3V* 12/16/22 1042 No rt [employer] Other XR ankle LT min 3V* [facility] Main [place] [address] [place] [address] XRay Report Signed Patient: Nehal Baig MR#: [id number] 8 : 1970 Acct:[id number] Age/Sex: 52 / M ADM Date: 12/16/22 Loc: XDUCLY Room: Type: [facility] CLI Attending Dr: Kelly MALONEY Copies to: HAIDER [...] Nehal Horner M.D.12/16/2022 10:42 AM Dictation Location: [place] [address] Transcribed By: [facility] 12/16/22 1042 Dictated By: Nehal Horner II, MD 12/16/22 1042 Signed By: 12/16/22 1042 [facility] Outside Recordson 10-25-2022 Outside Records [id number][facility] 08-16-2022 Outside Records [id number]#1.[facility] Record[facility] 08-15-2022 Outside Records [id number]#1.00[facility] Coding Summaryon 07-17-2022 Coding Summary [employer]Base 64 PqjrdwviPVe4tQj+PGhlYWQ+PE 2MXHDdL52baCSnfY6OS0dQVW1H LCNIIOQLJV9JJC2yyHN1YDsaF2 VybiAv TezlpVZaFQ35XMs5FBO9jVdsTY wupC9irBGeN3o2CzDfYV50mG67 DDlrFBNiWiQ3LrPormuklEEr U3yfPkCbdBCiKla+PHRhYmxlIH nyFPTjXSqyHDXoNjVbnAhjIW5u Ls7yIVUiZPCzwEalcOJwGyAj m0clMEKtJPnbCW6vaQifZ4ApkT J3IVQkq7t7Sr13uMF+PHRkIHN0 oWjcZXwmm491VeQko4cpWLM0 rRDlSWbcADC7F92ti2C8AYVlXT GmJGV4cZG4dG0pkHjoqsdzO3Vf jADeDjK4QDF3jPPbmE3zgHby tpgqaW3vXax+Z45MOJ4UABHKDI 2NZku2K9MyUakvsJG+NW61JSJc YL86bCVvoTXhb4zfaYi9TqQm VNAwRAR8tZumDPbhe7NbRAKcT1 9eyYIqh2L7RYAyfWkmbIIwKcQu tNX4oC1qMWspuzfre5jfvvqv Gxswj1vwkk25oK19V35dGKfhQL LgSQY2GPVvCEEvcDihjx3kjX3k Ii8+DTcho2zzr6mrtBg6FhSy IRNzvdCcfTnoNPC0c2PaGh12F4 KllMlcj3BqQvd6wn38uZUqz6H4 kYK1WDcsYCGjsI4tNKicPkI1 PRXsPsMhnT24sZZeHFlaCf4wgD eyvCzsON0vMYYpzyjkVEAgiV8y ZJLpoTGsrTlwGG4jLKVwscvp j154DwKpCIG5JOSsjOAnN3OifW 1wBkVfLICyIHUgW9BzrSXsPCwu O051NKeiOkK6LIHfixOvA3Rn CVOtkLckHoF8l7Z0Hv3Jm6Tpyd elDHE9NZopOFE5MlC9LfQeEcN6 A1KzIpf0BGXkjVmaCI7pA5Uh ZUMoprgfppzqbGK6KTXnQEAxaR 64qDNvBPtcMn1ib8Z2b157KNRp PGRvhR18Jf1laCpiEQNawAJO oZ1kkzdnf9ytlwgfRjIfULHfGZ o3DAn7KDStsPtyObSeGON8TqD4 QHI9uLWcqQ9ksPpymwdblV1h Oyc+X26keE8tTKR0LNN5qvsfDP PyauDsIY84NU73Z1BtPwiimJFt bGU+CFWmheSybFqrXE9aLoRr o3eks4ElKIezI9TdJGAoVBnbZc i7GQFnYMG7tXG0cZ5pMGZhQMtq v9U0yFE1Y8AxktHssp1iw2cd GOXlKOkjL68wgSPyn5R5ZFDndB X0LDUvaGxqXiBqoU00Anx+PGNv sHasv6PuHgmzk5zay6twwIs4 RgYtSUBzdzZjiNcjYGB7z4ZtSm 94J23kWBryNTTwDKKqDCGgPMEh iGqjuw4dnO1xFm6+PGNvbCB3 bHM6sQ2rCILmOnB4PRbqJ886Kk QpzHCzGvbrc8igk2vsaYj6GbHt WQMrdsRacLzaMQE4t4DbYe06 Q72iEYgjXPGoCESmZEUqJHJeqW hhqm4gkK7zId4+ZL7cu5annf20 fT42lIM+OGHxWGP9zAxaYIsc MVXooY2eQGcuYmR5TIDmFrVzvV 60uXYeZBxzBo1dvSlzxVtvIS4n VMNvkmrbb679EeOmc8bgTSBb pLPlARfvVXV7A05hp2E4SGAwMQ WhCNJ3yAM6zL3wnImcqxrwzGOn dXjxdlHthTmjAVgfRPabJ615 IHRvcDsnPlBhdGllbnQgTmFtZT z2W6QdCim2ODVrzYqrYT4mfLNa KZtkMv7mlRbncOjfRE0tWQVa kptiu757QdVik8doSMPpgPDeLK bdKTZ5Y77ov3H0WFEmHUUmJVQ3 kZG5bI0kyUbmaymwpFYhyIhy bwHdjPtgTErmBVxaM851NQGgvY leLhVldtRqZCGqzEI9NG44GJ89 qURxc0T8wEE7I4ZbBYJafuoa dpmloQU2JIQsQSVggS09Ml3cnX uuCu0xNTXzTVZ8MBBlgBFuK3Zc vD5gWeOgEWMkTGYrY0ImtFMh QEvuC036AQqtRlA9BGGfrcYhF1 HfPERegSmaTcQ2y1L5Bt1IS0H7 SO75UF72dUKgy0X0oWJ5F8Em DOXsaaigjdeabDH7NNCkPRYhlY 67Vp2efZhxCi5gRKTsPQA7QPHl aLJfH3VvuA5lHrTtAECxBGOe Q4WtlLGoAZsbI227QJjuBzT7IC XmvuUoG9SnBQJfuFxlEbG3m2O2 Yl9GWRs4QX90JU01vNZlu3C8 rTA0F3XfCTHhenelenresUK3PQ PyUAXlmR33Gh8lcUceXm5zPDJs KGW9XNQrcPHaC2FqiO9tOaAf XRBrPSMzY8KbvXKoRPdwK423FR quUjU4WSGjuzKiB6NoXDVfzKzx WkT7f7W7Lf3FZTMaDA24BTD3 lIS1CX75DP56P1DmGmllpSKpeF U+PHRhYmxlIHdpZHRoPScxMDAl TdSvgSaaGV8iKl3yOIBvPRPu sGzyiKNxYoNuw7ldADQeTVvyRW 9izUeuF5IhtTV6FOMvi2d8Os46 H56bN3QymCG+VZCtgFC6wTI6 xG0yNqGxHlQ2MHadK099YaJzfA GnZlvys0alo9jduHg4RsB7SIFb sgYnnWbbLKG3a5SqIg21L83h IHdpZHRoPSIxNSUiIHZhbGlnbj 0gdO6dHx7+WCMheAB6jBV1xM2x MqStOdM1TWatV131FfSebUJz Durzb0jrg1fpdXd0HfOwSTTonm TtuZapLBD7z1OzSc35T2WvhWvt c3HuNxe1tq14fSCnr3J3dMN9 N9EnWGUhigppzMRlgRxbJV7bAA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 Normal Negative [facility] Comment on above: Order Comment: Speci men Type: URINE SPECIMEN [facility] Address: [address] [place] [address] Performed By: #### L [id number] #### [facility] CLIA [id number] [address] [place] [address] [place] Ketones Ql (U) Trace Abnormal Negative [facility] Comment on above: Order Comment: Speci men Type: URINE SPECIMEN [facility] Address: [address] [place] [address] Performed By: #### L [id number] #### [facility] CLIA [id number] [address] [place] [address] [place] Leukocyte esterase Test strip Ql (U) Negative Normal Negative [facility] Comment on above: Order Comment: Speci men Type: URINE SPECIMEN [facility] Address: [address] [place] [address] Performed By: #### L [id number] #### [facility] CLIA [id number] [address] [place] [address] [place] Nitrite Ql (U) Negative Normal Negative [facility] Comment on above: Order Comment: Speci men Type: URINE SPECIMEN [facility] Address: [address] [place] [address] Performed By: #### L [id number] #### [facility] CLIA [id number] [address] [place] [address] [place] pH (U) 5.5 [pH] Normal 5.0-8.0 [facility] Comment on above: Order Comment: Speci men Type: URINE SPECIMEN [facility] Address: [address] [place] [address] Performed By: #### L [id number] #### [facility] CLIA [id number] [address] [place] [address] [place] Protein (U) [Mass/Vol] 1+ Abnormal Negative [facility] Comment on above: Order Comment: Speci men Type: URINE SPECIMEN [facility] Address: [address] [place] [address] Performed By: #### L [id number] #### [facility] CLIA [id number] [address] [place] [address] [place] RBC LM.HPF (Urine sed) [#/Area] 0-3 /HPF Normal 0-3 /HPF [facility] Comment on above: Order Comment: Speci men Type: URINE SPECIMEN [facility] Address: [address] [place] [address] Performed By: #### L [id number] #### [facility] CLIA [id number] [address] [place] [address] [place] Specific gravity (U) [Rel density] >=1.030 High 1.005-1.03 0 [facility] Comment on above: Order Comment: Speci men Type: URINE SPECIMEN [facility] Address: [address] [place] [address] Performed By: #### L [id number] #### [facility] CLIA [id number] [address] [place] [address] Urobilinogen Ql (U) 0.2 EU/dL Normal 0.2-1.0 EU/dL [facility] Comment on above: Order Comment: Speci men Type: URINE SPECIMEN [facility] Address: [address] [place] [address] Performed By: #### L [id number] #### [facility] CLIA [id number] [address] [place] [address] [place] WBC LM.HPF (Urine sed) [#/Area] 0-5 /HPF Normal 0-5 /HPF [facility] Comment on above: Order Comment: Speci men Type: URINE SPECIMEN [facility] Address: [address] [place] [address] Performed By: #### L [id number] #### [facility] CLIA [id number] [address] [place] [address] MRI CSPINE WO CONon 04-23-19 MRI CSPINE [...] by: KINGSLEY HERRERA Date: 2022-04-23 06:50 Normal [facility] XR FOREIGN BODY EYEon 2022 XR FOREIGN BODY EYE EXAMINATION: XR FORE IGN BODY EYE HISTORY: Foreign body in eye COMPARISON: No relevant comparison available. FINDINGS: ORBITS: Negative for a metallic foreign body. OTHER: Negative. IMPRESSION: 1. No metallic foreign body within the orbits. Electronically authenticated by: JAYY GIVENS Date: 2022-04-20 13:52 Normal [facility] CNOVon 02-15-2022 CNOV Office Visit ([facility] ) -- NEHAL BAIG ([id number]) 1970 M Date Time Provider Department 02/15/22 2:20 PM SALOME AGUILLON [facility] During your visit today, we recorded [...] endo wt managmeent Dr. 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 Man/Agustina-endo wt management team [phone] Has been off metformin 6 weeks + [...] 2020. This is a workers comp issue-through [facility]/Dr. Cowan. 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 Shoulder replacement surgery left 08/23/24. 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 HM: -declines flu vaccine -declines covid [...] looks fine. Vitamin D is low-please begin [id number] vitamin D3 2000 units daily. Urine asymptomatic. Component Latest Ref Rng AND Units 02/10/2022 Color Yellow Yellow Clarity Clear Clear Glucose, Urine Negative Negative Bilirubin, Urine Negative Negative Ketones, Urine Negative Negative Specific [place], Ur 1.005 - 1.030 1.037 (H) Hemoglobin/Blood,Ur [...] other (Epilepsy) (more content not included)... Normal [facility] 25(OH)D3 [facility] 2021 25-hydroxyvitamin D3 [Mass/Vol] 28.2 ng/mL Low 31.0-80.0 [facility] Comment on above: Order Comment: Speci men Type: BLOOD SPECIMENOrdering Facility: [facility] Address: [address] [place] [address] Result Comment: Clas sification of 25 [place] Vitamin D status: Deficiency/Insufficiency: < or = 30 ng/ml. Sufficiency/Optimal Levels: 31-80 ng/mL Toxicity: > 100 ng/mL. Test performed by chemiluminescent immunoassay. Performed By: #### 1 989-3 ####[facility] LABIA [id number] [address] OF [facility] CBC panel Auto (Bld)on 02-10 Erythrocyte distribution width (RBC) [Ratio] 13.2 % Normal 11.5-15.0 [facility] Comment on above: Order Comment: Speci men Type: BLOOD SPECIMENOrdering Facility: [facility] Address: [address] [place] [address] Performed By: #### 5 8410-2 ####[facility] LABCLIA [id number] [address] STATES OF [facility] Hematocrit (Bld) [Volume fraction] 41.9 % Normal 39.0-51.0 [facility] Comment on above: Order Comment: Speci men Type: BLOOD SPECIMENOrdering Facility: [facility] Address: [address] [place] [address] Performed By: #### 5 8410-2 ####[facility] LABIA [id number] [address] STATES OF [facility] Hemoglobin (Bld) [Mass/Vol] 13.9 g/dL Normal 13.0-17.0 [facility] Comment on above: Order Comment: Speci men Type: BLOOD SPECIMENOrdering Facility: [facility] Address: [address] [place] [address] Performed By: #### 5 8410-2 ####[facility] LABIA [id number] [address] MCH (RBC) [Entitic mass] 29.0 pg Normal 26.0-34.0 [facility] Comment on above: Order Comment: Speci men Type: BLOOD SPECIMENOrdering Facility: [facility] Address: [address] [place], [place] [address] Performed By: #### 5 8410-2 ####[facility] LABIA [id number] [address] STATES OF [facility] MCHC (RBC) [Mass/Vol] 33.2 g/dL Normal 30.5-36.0 [facility] Comment on above: Order Comment: Speci men Type: BLOOD SPECIMENOrdering Facility: [facility] Address: [address] [place], [place] [address] Performed By: #### 5 8410-2 ####[facility] LABIA [id number] [address] [place] MCV (RBC) [Entitic vol] 87.5 fL Normal 80.0-100.0 [facility] Comment on above: Order Comment: Speci men Type: BLOOD SPECIMENOrdering Facility: [facility] Address: [address] Performed By: #### 5 8410-2 ####[facility] LABCLIA [id number] [place] [address] [place] Nucleated RBC (Bld) [#/Vol] 10*3/uL Normal <0.01 [facility] Comment on above: Order Comment: Speci men Type: BLOOD SPECIMENOrdering Facility: [facility] Address: [address] Performed By: #### 5 8410-2 ####[facility] LABIA [id number] [place] [address] [place] Platelet mean volume (Bld) [Entitic vol] 10.6 fL Normal 9.0-12.7 [facility] Comment on above: Order Comment: Speci men Type: BLOOD SPECIMENOrdering Facility: [facility] Address: [address] Performed By: #### 5 8410-2 ####[facility] LABIA [id number] [place] [address] [place] Platelets (Bld) [#/Vol] 198 10*3/uL Normal 150-400 [facility] Comment on above: Order Comment: Speci men Type: BLOOD SPECIMENOrdering Facility: [facility] Address: [address] Performed By: #### 5 8410-2 ####[facility] LABIA [id number] [place] [address] [place] RBC (Bld) [#/Vol] 4.79 10*6/uL Normal 4.20-6.00 [facility] Comment on above: Order Comment: Speci men Type: BLOOD SPECIMENOrdering Facility: [facility] Address: [address] Performed By: #### 5 8410-2 ####[facility] LABCLIA [id number] [place] [address] [place] WBC (Bld) [#/Vol] 6.46 10*3/uL Normal 3.70-11.00 [facility] Comment on above: Order Comment: Speci men Type: BLOOD SPECIMENOrdering Facility: [facility] Address: [address] [place] [address] Performed By: #### 5 8410-2 ####[facility] LABCLIA [id number] [address] Comprehensive metabolic 2000 panelon 02-10-2022 Albumin [Mass/Vol] 4.5 g/dL Normal 3.9-4.9 [facility] Comment on above: Order Comment: Speci men Type: BLOOD SPECIMENOrdering Facility: [facility] Address: [address] [place] [address] Performed By: #### 3 016-3, 25979-5 ####[facility] LABCLIA [id number] [place] [address] [place]#### 25818-3 ####[facility] LABCLIA [id number] [address] STATES OF [facility] LABORATORYCLIA [id number] [place] [address] [place] ALP [Catalytic activity/Vol] 85 U/L Normal 38-113 [facility] Comment on above: Order Comment: Speci men Type: BLOOD SPECIMENOrdering Facility: [facility] Address: [address] [place] [address] Performed By: #### 3 016-3, 00884-0 ####[facility] LABCLIA [id number] [address] [place]#### 96396-6 ####[facility] LABCLIA [id number] [facility] [address] STATES [facility] LABORATORYCLIA [id number] [place] [address] [place] ALT [Catalytic activity/Vol] 34 U/L Normal 10-54 [facility] Comment on above: Order Comment: Speci men Type: BLOOD SPECIMENOrdering Facility: [facility] Address: [address] [place] [address] Performed By: #### 3 016-3, 71635-9 ####[facility] LABCLIA [id number] [facility] [place] [address] [place]#### 67791-1 ####[facility] LABCLIA [id number] [address] STATES OF [facility] LABORATORYCLIA [id number] [place] [address] [place] Anion gap [Moles/Vol] 10 mmol/L Normal 9-18 [facility] Comment on above: Order Comment: Speci men Type: BLOOD SPECIMENOrdering Facility: [facility] Address: [address] [place], [place] [address] Performed By: #### 3 016-3, 28359-2 ####[facility] LABCLIA [id number] [place] [address] [place]#### 69129-7 ####[facility] LABCLIA [id number] [place] [address] [place] [facility] LABORATORYCLIA [id number] [place] [address] [place] AST [Catalytic activity/Vol] 25 U/L Normal 14-40 [facility] Comment on above: Order Comment: Speci men Type: BLOOD SPECIMENOrdering Facility: [facility] Address: [address] Performed By: #### 3 016-3, ####[facility] LABCLIA [id number] [place] [address] [place]#### 14373-9 ####[facility] LABCLIA [id number] [address] [address] [place] [facility] LABORATORYCLIA [id number] [place] [address] [place] Bilirubin [Mass/Vol] 0.4 mg/dL Normal 0.2-1.3 [facility] Comment on above: Order Comment: Speci men Type: BLOOD SPECIMENOrdering Facility: [facility] Address: [address] [place] [address] Performed By: #### 3 016-3, ####[facility] LABCLIA [id number] [place] [address] [place]#### 02409-8 ####[facility] LABCLIA [id number] [place] [address] [place] [facility] LABORATORYCLIA [id number] [place] [address] [place] Calcium [Mass/Vol] 9.3 mg/dL Normal 8.5-10.2 [facility] Comment on above: Order Comment: Speci men Type: BLOOD SPECIMENOrdering Facility: [facility] Address: [address] [place] [address] Performed By: #### 3 016-3, ####[facility] LABCLIA [id number] [place] [address] [place]#### 79392-1 ####[facility] LABCLIA [id number] [address] [facility] LABORATORYCLIA [id number] [place] [address] [place] Chloride [Moles/Vol] 103 mmol/L Normal 97-105 [facility] Comment on above: Order Comment: Speci men Type: BLOOD SPECIMENOrdering Facility: [facility] Address: [address] [place] [address] Performed By: #### 3 016-3, 56359-3 ####[facility] LABCLIA [id number] [place] [address] [place]#### 83365-9 ####[facility] LABCLIA [id number] [address] STATES [facility] LABORATORYCLIA [id number] [address] [place] CO2 [Moles/Vol] 26 mmol/L Normal 22-30 [facility] Comment on above: Order Comment: Speci men Type: BLOOD SPECIMENOrdering Facility: [facility] Address: [address] [place] [address] Performed By: #### 3 016-3, ####[facility] LABCLIA [id number] [place] [address] [place]#### 75615-0 ####[facility] LABCLIA [id number] [address] STATES OF [facility] LABORATORYCLIA [id number] [place] [address] [place] Creatinine [Mass/Vol] 0.90 mg/dL Normal 0.73-1.22 [facility] Comment on above: Order Comment: Speci men Type: BLOOD SPECIMENOrdering Facility: [facility] Address: [address] [place] [address] Performed By: #### 3 016-3, 90372-6 ####[facility] LABCLIA [id number] [place] [address] [place]#### 80059-8 ####[facility] LABCLIA [id number] [address] LABORATORYCLIA [id number] [address] ESTIMATED GLOMERULAR FILTRATION RATE 105 mL/min/1.73m??? Normal >=60 [facility] Comment on above: Order Comment: Tessa flores Type: BLOOD SPECIMENOrdering Facility: [facility] Address: [address] [place] [address] Result Comment: Halle mated Glomerular Filtration Rate [...] actual GFR. Performed By: #### 3 016-3, 77724-0 ####[facility] LABCLIA [id number] [address] [place]#### [address]-8 ####[facility] LABIA [id number] [address] LABORATORYCLIA [id number] [place] [address] [place] Glucose [Mass/Vol] 115 mg/dL High 74-99 [facility] Comment on above: Order Comment: Tessa flores Type: BLOOD SPECIMENOrdering Facility: [facility] Address: [address] [place] [address] Result Comment: The [place] Diabetes Association (ADA) provides guidance for cutoff [...] Standards of Medical Care in Diabetes 2016, [place] Diabetes Association. Diabetes Care. 2016.39(Suppl 1). Performed By: #### 3 016-3, 08270-3 ####[facility] LABCLIA [id number] [address]#### 67697-7 ####[facility] LABCLIA [id number] [address] LABORATORYIA [id number] [place] [address] [place] Potassium [Moles/Vol] 4.2 mmol/L Normal 3.7-5.1 [facility] Comment on above: Order Comment: Speci men Type: BLOOD SPECIMENOrdering Facility: [facility] Address: [address] [place] [address] Performed By: #### 3 -3, ####[facility] LABCLIA [id number] [place] [address] [place]#### 20842-9 ####[facility] LABCLIA [id number] [address] LABORATORYCLIA [id number] [place] [address] [place] Protein [Mass/Vol] 6.9 g/dL Normal 6.3-8.0 [facility] Comment on above: Order Comment: Speci men Type: BLOOD SPECIMENOrdering Facility: [facility] Address: [address] [place] [address] Performed By: #### 3 016-3, 10602-5 ####[facility] LABCLIA [id number] [place] [address] [place]#### 85293-3 ####[facility] LABCLIA [id number] [address] [facility] LABORATORYCLIA [id number] [place] [address] [place] Sodium [Moles/Vol] 139 mmol/L Normal 136-144 [facility] Comment on above: Order Comment: Speci men Type: BLOOD SPECIMENOrdering Facility: [facility] Address: [address] [place] [address] Performed By: #### 3 016-3, 28261-7 ####[facility] LABCLIA [id number] [place] [address] [place]#### 40227-0 ####[facility] LABCLIA [id number] [address] STATES [facility] LABORATORYCLIA [id number] [place] [address] [place] Urea nitrogen [Mass/Vol] 15 mg/dL Normal 9-24 [facility] Comment on above: Order Comment: Speci men Type: BLOOD SPECIMENOrdering Facility: [facility] Address: [address] [place] [address] Performed By: #### 3 016-3, 66639-3 ####[facility] LABCLIA [id number] [place] [address] [place]#### 05949-2 ####[facility] LABCLIA [id number] [place] [address] [place] [facility] LABORATORYCLIA [id number] [place] [address] [place] HbA1c (Bld)on 02-10-2022 Average glucose Estimated from glycated hemoglobin (Bld) [Mass/Vol] 105 mg/dL Normal [facility] Comment on above: Order Comment: Speci men Type: BLOOD SPECIMENOrdering Facility: [facility] Address: [address] [place] [address] Result Comment: eAG: (Estimated average glucose) is a calculated value from HgbA1c and is outside sales representative of the average blood glucose level in the last 2-3 month period. Performed By: #### 5 5454-3 ####[facility] LABCLIA [id number] [place] [address] [place] HbA1c (Bld) [Mass fraction] 5.3 % Normal 4.3-5.6 [facility] Comment on above: Order Comment: Selmai men Type: BLOOD SPECIMENOrdering Facility: [facility] Address: [address] [place] [address] Result Comment: Amer ican Diabetes Association guidelines indicate that patients with HgbA1c in the range 5.7-6.4% are at increased risk for development of diabetes, and intervention by lifestyle modification may be beneficial. HgbA1c greater or equal to 6.5% is considered diagnostic of diabetes. Performed By: #### 5 5454-3 ####[facility] LABCLIA [id number] [place] [address] [place] Lipid 1996 panelon 2 Cholesterol [Mass/Vol] 179 mg/dL Normal <200 [facility] Comment on above: Order Comment: Tessa flores Type: BLOOD SPECIMENOrdering Facility: [facility] Address: [address] [place] [address] Result Comment: <200 mg/dL, Desirable 200-239 mg/dL, Borderline high >239 mg/dL, High Performed By: #### 3 016-3, 25656-0 ####[facility] LABCLIA [id number] [place] [address] [place]#### 74022-7 ####[facility] LABCLIA [id number] [place] [address] [place] [facility] LABORATORYCLIA [id number] [place] [address] [place] Cholesterol in HDL [Mass/Vol] 36 mg/dL Low >39 [facility] Comment on above: Order Comment: Speci men Type: BLOOD SPECIMENOrdering Facility: [facility] Address: [address] [place] [address] Result Comment: 40-5 9 mg/dL, Acceptable >59 mg/dL, High: Negative risk factor for coronary heart disease <40 mg/dL, Low: Positive risk factor for coronary heart disease Performed By: #### 3 016-3, ####[facility] LABCLIA [id number] [address] [place]#### 22131-0 ####[facility] LABCLIA [id number] [address] STATES OF [facility] LABORATORYCLIA [id number] [place] [address] [place] Cholesterol in LDL [Mass/Vol] 104 mg/dL High <100 [facility] Comment on above: Order Comment: Speci men Type: BLOOD SPECIMENOrdering Facility: [facility] Address: [address] [place] [address] Result Comment: <100 mg/dL, Optimal 100-129 mg/dL, Near optimal/above optimal 130-159 mg/dL, Borderline high 160-189 mg/dL, High >189 mg/dL, Very high Secondary prevention optimal LDL Cholesterol levels are recommended to be < 70 mg/dL Performed By: #### 3 016-3, ####[facility] LABCLIA [id number] [place] [address] [place]#### 63774-1 ####[facility] LABCLIA [id number] [place] [address] [place] [address] [facility] LABORATORYCLIA [id number] [place] [address] [place] Cholesterol in LDL/Cholesterol in HDL [Mass ratio] 2.89 {ratio} High <2.54 [facility] Comment on above: Order Comment: Speci men Type: BLOOD SPECIMENOrdering Facility: [facility] Address: [address] [place] [address] Result Comment: Doris tucker: 1. National Cholesterol Education Program ATP III Guideline At-A-Glance Quick Desk Reference: National Heart, Lung, and Blood [place]. National Institutes of Health. 2001: NIH Publication No. 01-3305. 2. An International Atherosclerosis Society position paper: global recommendations for the management of dyslipidemia: executive summary, Atherosclerosis. 2014: 232(2):410-413. Performed By: #### 3 016-3, 45628-8 ####[facility] LABCLIA [id number] [address] [place]#### 61811-1 ####[facility] LABCLIA [id number] [address] [place] LABORATORYCLIA [id number] [address] [place] Cholesterol in VLDL [Mass/Vol] 39 mg/dL High <30 [facility] Comment on above: Order Comment: Speci men Type: BLOOD SPECIMENOrdering Facility: [facility] Address: [address] [place] [address] Performed By: #### 3 016-3, 85400-0 ####[facility] LABCLIA [id number] [address] [place]#### 44587-6 ####[facility] LABCLIA [id number] [address] STATES [facility] LABORATORYCLIA [id number] [address] [place] Cholesterol non HDL [Mass/Vol] 143 mg/dL High <130 [facility] Comment on above: Order Comment: Speci men Type: BLOOD SPECIMENOrdering Facility: [facility] Address: [address] [place] [address] Result Comment: <130 mg/dL, Optimal 130-159 mg/dL, Near optimal/above optimal 160-189 mg/dL, Borderline high 190-219 mg/dL, High >219 mg/dL, Very high Secondary prevention optimal non HDL Cholesterol levels are recommended to be <100 mg/dL Performed By: #### 3 016-3, ####[facility] LABCLIA [id number] [address] [place]#### 02555-9 ####[facility] LABCLIA [id number] [address] LABORATORYCLIA [id number] [address] Cholesterol.total/Ch olesterol in HDL [Mass ratio] 4.97 {ratio} Normal <5.10 [facility] Comment on above: Order Comment: Speci men Type: BLOOD SPECIMENOrdering Facility: [facility] Address: [address] [place] [address] Performed By: #### 3 016-3, ####[facility] LABCLIA [id number] [address] [place]#### 47289-3 ####[facility] LABCLIA [id number] [address] LABORATORYCLIA [id number] [address] STATES [facility] FASTING TIME 12 hrs Normal [facility] Comment on above: Order Comment: Speci men Type: BLOOD SPECIMENOrdering Facility: [facility] Address: [address] [place] [address] Performed By: #### 3 016-3, 40022-8 ####[facility] LABCLIA [id number] [place] [address] [place]#### 87441-2 ####[facility] LABCLIA [id number] [address] LABORATORYCLIA [id number] [place] [address] [place] Triglyceride [Mass/Vol] 197 mg/dL High <150 [facility] Comment on above: Order Comment: Speci men Type: BLOOD SPECIMENOrdering Facility: [facility] Address: [address] [place] [address] Result Comment: <150 mg/dL, Normal 150-199 mg/dL, Borderline high 200-499 mg/dL, High >499 mg/dL, Very high Performed By: #### 3 016-3, 65707-5 ####[facility] LABIA [id number] [place] [address] [place]#### 29051-8 ####[facility] LABIA [id number] [address] LABORATORYCLIA [id number] [place] [address] [place] PSA/PROSTSPECAG [facility]Fl[facility] 02-10 Prostate specific Ag [Mass/Vol] 0.42 ng/mL Normal <2.60 [facility] Comment on above: Order Comment: Speci men Type: BLOOD SPECIMENOrdering Facility: [facility] Address: [address] [place], [place] [address] Result Comment: Tota l PSA test methodology used is the Electrochemiluminescence Immunoassay by [employer]. Total PSA values by differing methodologies cannot be interchanged. Performed By: #### P SAS1 ####[facility] LABIA [id number] [place] [address] [place] TSH SerPl-aCncon 02-10-2022 TSH Qn 1.220 m[IU]/L Normal 0.270-4.20 0 [facility] Comment on above: Order Comment: Speci men Type: BLOOD SPECIMENOrdering Facility: [facility] Address: [address] [place] [address] Performed By: #### 3 016-3, 32997-3 ####[facility] LABCLIA [id number] [place] [address] [place]#### 11329-1 ####[facility] LABCLIA [id number] [place] [address] [place] [facility] [place] LABORATORYCLIA [id number] [facility] RDNELL [place] [address] [place] URINALYSIS, REFLEX MICROSCOP ICon 02-10-2022 Bilirubin Ql (U) Negative Normal Negative [facility] Comment on above: Order Comment: Speci men Type: URINE SPECIMENOrdering Facility: [facility] Address: [address] [place] [address] Performed By: #### L [id number] ####[facility] LABCLIA [id number] [place] [address] [place] CALCIUM OXALATE CRYSTALS (UA) Few Abnormal None Seen [facility] Comment on above: Order Comment: Speci men Type: URINE SPECIMENOrdering Facility: [facility] Address: [address] [place] [address] Performed By: #### L [id number] ####[facility] LABIA [id number] [place] [address] [place] Clarity (Unsp spec) Clear Normal Clear [facility] Comment on above: Order Comment: Speci men Type: URINE SPECIMENOrdering Facility: [facility] Address: [address] Performed By: #### L [id number] ####[facility] LABCLIA [id number] [place] [address] [place] [place] Color (U) Yellow Normal Yellow [facility] Comment on above: Order Comment: Speci men Type: URINE SPECIMENOrdering Facility: [facility] Address: [address] Performed By: #### L [id number] ####[facility] LABCLIA [id number] [place] [address] [place] Epithelial cells LM.HPF (Urine sed) [#/Area] Few Normal [facility] Comment on above: Order Comment: Speci men Type: URINE SPECIMENOrdering Facility: [facility] Address: [address] [place] [address] Result Comment: Few Performed By: #### L [id number] ####[facility] LABCLIA [id number] [place] [address] [place] Glucose Test strip (U) [Mass/Vol] Negative Normal Negative [facility] Comment on above: Order Comment: Speci men Type: URINE SPECIMENOrdering Facility: [facility] Address: [address] [place] [address] Performed By: #### L [id number] ####[facility] LABCLIA [id number] [place] [address] [place] Hemoglobin Ql (U) Negative Normal Negative [facility] Comment on above: Order Comment: Speci men Type: URINE SPECIMENOrdering Facility: [facility] Address: [address] [place] [address] Performed By: #### L [id number] ####[facility] LABCLIA [id number] [place] [address] [place] Ketones Ql (U) Negative Normal Negative [facility] Comment on above: Order Comment: Speci men Type: URINE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 [Mass fraction] 5.7 % High 4.3-5.6 [facility] Comment on above: Order Comment: Tessa flores Type: BLOOD SPECIMENOrdering Facility: [facility] Address: [address] [place] [address] Result Comment: Amer [place] Diabetes Association guidelines indicate that patients with HgbA1c in the range 5.7-6.4% are at increased risk for development of diabetes, and intervention by lifestyle modification may be beneficial. HgbA1c greater or equal to 6.5% is considered diagnostic of diabetes. Performed By: #### H BA1C ####[facility]IA [id number] [address] OF [facility] LIPID PANEL BASICon 07-30-19 22 Cholesterol [Mass/Vol] 240 mg/dL High <200 [facility] Comment on above: Order Comment: Tessa flores Type: BLOOD SPECIMENOrdering Facility: [facility] Address: [address] [place] [address] Result Comment: <200 mg/dL, Desirable 200-239 mg/dL, Borderline high >239 mg/dL, High Performed By: #### L IPB, 14787-4 ####[facility]IA [id number] [address] OF [facility] Cholesterol in HDL [Mass/Vol] 37 mg/dL Low >39 [facility] Comment on above: Order Comment: Speci men Type: BLOOD SPECIMENOrdering Facility: [facility] Address: [address] [place] [address] Result Comment: 40-5 9 mg/dL, Acceptable >59 mg/dL, High: Negative risk factor for coronary heart disease <40 mg/dL, Low: Positive risk factor for coronary heart disease Performed By: #### L FILIPE, 96183-5 ####[facility] [id number] [address] Cholesterol in LDL [Mass/Vol] 175 mg/dL High <100 [facility] Comment on above: Order Comment: Selmai sandra Type: BLOOD SPECIMENOrdering Facility: [facility] Address: [address] [place] [address] Result Comment: <100 mg/dL, Optimal 100-129 mg/dL, Near optimal/above optimal 130-159 mg/dL, Borderline high 160-189 mg/dL, High >189 mg/dL, Very high Secondary prevention optimal LDL Cholesterol levels are recommended to be < 70 mg/dL Performed By: #### Natalie DENT, 27565-3 ####[facility] LABIA [id number] [address] OF [facility] Cholesterol in LDL/Cholesterol in HDL [Mass ratio] 4.73 {ratio} High <2.54 [facility] Comment on above: Order Comment: Tessa flores Type: BLOOD SPECIMENOrdering Facility: [facility] Address: [address] [place] [address] Result Comment: Refe rence: 1. National Cholesterol Education Program ATP III Guideline At-A-Glance Quick Desk Reference: National Heart, Lung, and Blood [place]. National Institutes of Health. 2001: NIH Publication No. 01-3305. 2. An International Atherosclerosis Society position paper: global recommendations for the management of dyslipidemia: executive summary, Atherosclerosis. 2014: 232(2):410-413. Performed By: #### L FILIPE, 04604-4 ####[facility] [id number] [address] [place] Cholesterol in VLDL [Mass/Vol] 28 mg/dL Normal <30 [facility] Comment on above: Order Comment: Speci men Type: BLOOD SPECIMENOrdering Facility: [facility] Address: [address] [place] [address] Performed By: #### L IPB, 35449-6 ####[facility] [id number] [place] [address] [place] Cholesterol non HDL [Mass/Vol] 203 mg/dL High <130 [facility] Comment on above: Order Comment: Speci men Type: BLOOD SPECIMENOrdering Facility: [facility] Address: [address] [place] [address] Result Comment: <130 mg/dL, Optimal 130-159 mg/dL, Near optimal/above optimal 160-189 mg/dL, Borderline high 190-219 mg/dL, High >219 mg/dL, Very high Secondary prevention optimal non HDL Cholesterol levels are recommended to be <100 mg/dL Performed By: #### L IPB, 85926-5 ####[facility] [id number] [address] Cholesterol.total/Ch olesterol in HDL [Mass ratio] 6.49 {ratio} High <5.10 [facility] Comment on above: Order Comment: Speci men Type: BLOOD SPECIMENOrdering Facility: [facility] Address: [address] [place], [place] [address] Performed By: #### L IPB, 54819-0 ####[facility] [id number] [address] [place] FASTING TIME 12. hrs Normal [facility] Comment on above: Order Comment: Speci men Type: BLOOD SPECIMENOrdering Facility: [facility] Address: [address] [place] [address] Performed By: #### L IPB, 52951-3 ####[facility]IA [id number] [place] [address] [place] Triglyceride [Mass/Vol] 140 mg/dL Normal <150 [facility] Comment on above: Order Comment: Speci men Type: BLOOD SPECIMENOrdering Facility: [facility] Address: [address] [place] [address] Result Comment: <150 mg/dL, Normal 150-199 mg/dL, Borderline high 200-499 mg/dL, High >499 mg/dL, Very high Performed By: #### L [facility], [address]-0 ####[facility]IA [id number] [place] [address] [place] PSA/PROSTSPECAG SCRNon 07-29 Prostate specific Ag [Mass/Vol] 0.41 ng/mL Normal <2.60 [facility] Comment on above: Order Comment: Speci men Type: BLOOD SPECIMENOrdering Facility: [facility] Address: [address] [place] [address] Result Comment: Tota l PSA test methodology used is the Electrochemiluminescence Immunoassay by [employer]. Total PSA values by differing methodologies cannot be interchanged. Performed By: #### P SAS1 ####[facility] LABCLIA [id number] [place] [address] [place] TSH SerPl-aCncon 07-29-2021 TSH Qn 4.060 m[IU]/L Normal 0.270-4.20 0 [facility] Comment on above: Order Comment: Speci men Type: BLOOD SPECIMENOrdering Facility: [facility] Address: [address] [place], [place] [address] Performed By: #### 3 016-3 ####[facility] LABCLIA [id number] [place] [address] [place] URINALYSIS, REFLEX MICROSCOP ICon 07-29-2021 Bilirubin Ql (U) Negative Normal Negative [facility] Comment on above: Order Comment: Speci men Type: URINE SPECIMEN [facility] Address: [address] [place] [address] Performed By: #### L [id number] #### [facility] CLIA [id number] [address] [place] [address] [place] Clarity (Unsp spec) Clear Normal Clear [facility] Comment on above: Order Comment: Speci men Type: URINE SPECIMEN [facility] Address: [address] [place] [address] Performed By: #### L [id number] #### [facility] CLIA [id number] [address] [place] [address] [place] Color (U) Yellow Normal Yellow [facility] Comment on above: Order Comment: Speci men Type: URINE SPECIMEN [facility] Address: [address] [place] [address] Performed By: #### L [id number] #### [facility] CLIA [id number] [address] [place] [address] [place] Glucose Test strip (U) [Mass/Vol] Negative Normal Negative [facility] Comment on above: Order Comment: Speci men Type: URINE SPECIMEN [facility] Address: [address] [place] [address] Performed By: #### L [id number] #### [facility] CLIA [id number] [address] [place] [address] [place] Hemoglobin Ql (U) Negative Normal Negative [facility] Comment on above: Order Comment: Speci men Type: URINE SPECIMEN [facility] Address: [address] [place] [address] Performed By: #### L [id number] #### [facility] CLIA [id number] [address] [place] [address] OF [facility] Ketones Ql (U) Negative Normal Negative [facility] Comment on above: Order Comment: Speci men Type: URINE SPECIMEN [facility] Address: [address] [place] [address] Performed By: #### L [id number] #### [facility] CLIA [id number] [address] [place] [address] [place] Leukocyte esterase Test strip Ql (U) Negative Normal Negative [facility] Comment on above: Order Comment: Speci men Type: URINE SPECIMEN [facility] Address: [address] [place] [address] Performed By: #### L [id number] #### [facility] CLIA [id number] [address] [place] [address] [place] Nitrite Ql (U) Negative Normal Negative [facility] Comment on above: Order Comment: Speci men Type: URINE SPECIMEN [facility] Address: [address] [place] [address] Performed By: #### L [id number] #### [facility] CLIA [id number] [address] [place] [address] [place] pH (U) 5.5 [pH] Normal 5.0-8.0 [facility] Comment on above: Order Comment: Speci men Type: URINE SPECIMEN [facility] Address: [address] [place] [address] Performed By: #### L [id number] #### [facility] CLIA [id number] [address] [place] [address] [place] Protein (U) [Mass/Vol] Negative Normal Negative [facility] Comment on above: Order Comment: Speci men Type: URINE SPECIMEN [facility] Address: [address] [place] [address] Performed By: #### L [id number] #### [facility] CLIA [id number] [address] [place] [address] STATES [facility] Specific gravity (U) [Rel density] 1.025 Normal 1.005-1.03 0 [facility] Comment on above: Order Comment: Speci men Type: URINE SPECIMEN [facility] Address: [address] [place], [place] [id number] Performed By: #### L [id number] #### [facility] CLIA [id number] [address] [place] [address] OF [facility] Urobilinogen Ql (U) 0.2 EU/dL Normal 0.2-1.0 EU/dL [facility] Comment on above: Order Comment: Speci men Type: URINE SPECIMEN [facility] Address: [address] [place] [address] Performed By: #### L [id number] #### [facility] CLIA [id number] [address] [place] [address] [place] VITAMIN D 25 HYDROXYon 07-29 25-hydroxyvitamin D3 [Mass/Vol] 29.1 ng/mL Low 31.0-80.0 [facility] Comment on above: Order Comment: Speci men Type: BLOOD SPECIMENOrdering Facility: [facility] Address: [address] [place] [address] Result Comment: Clas sification of 25 [place] Vitamin D status: Deficiency/Insufficiency: < or = 30 ng/ml. Sufficiency/Optimal Levels: 31-80 ng/mL Toxicity: > 100 ng/mL. Test performed by chemiluminescent immunoassay. Performed By: #### V ITD ####[facility] LABCLIA [id number] [address] [place] HISTORY PHYSICALon HISTORY PHYSICAL HNO ID: [id number] Author: Prisca Van PA-C Service: ? Author Type: Physician Library Page Type: HANDP Filed: 07/26/2021 1:52 PM Note Text: [facility] This is a virtual visit. It required patient-provider interaction for the medical decision making as documented below. Patient has been identified by name and date of : Yes Reason for call: PACC visit Accompanied by: Self Patient name: Nehal Baig Scheduled Surgery: colonoscopy 07/31/2021 at [place] CHIEF COMPLAINT: Patient presents with: Outpatient Colonoscopy [...] fevers. Neuro: No history of TIA's, stroke, HARBOR TUG CAPTAIN tumor, impaired sensorium, hemiplegia, paraplegia or quadraplegia. No neurological symptoms or problems. Respiratory: No history of current cough or dyspnea, or pneumonia in the past 6 weeks. +asthma-uses Flovent daily, albuterol 3-5 times/week +JACOBY- BiPAP nightly +lung nodules Cardiovascular: No history of angina, CHF, TN, cardiac surgery or stents. Denies rest pain, [...] carotid puls (more content not included)... Normal [facility] CNOVon 07-25-2021 CNOV Office Visit ([facility] ) -- NEHAL BAIG ([id number]) 1970 M Date Time Provider Department 07/25/21 9:20 AM SALOME AGUILLON [facility] During your visit today, we [...] further at follow-up Salome Aguillon APRN.LEODAN Aguillon APRN.COMBO WELDER 07/25/2021 9:43 AM Signed Bowel Preparation Instructions for: Golytely, Nulytely, Trilyte or Coly (more content not included)... Normal [facility] -- ENHAL BAIG ([id number]) 1970 M Date Time Provider Department 07/25/21 SALOME AGUILLON [facility] During your visit today, we recorded the following information about you: Beatriz Cowan 07/25/2021 11:22 AM [facility] on backorder. They have the Newlytely in stock. Is it OK to substitute? Please advise. [phone]. Beatriz Cowan July 25, 2021 11:22 AM Salome Aguillon APRN.CNP 07/25/2021 12:05 PM Signed Called Anthony -pt [...] Date Reviewed: 07/25/2021 Reviewed by: Salome Aguillon APRN.COMBO WELDER - Fully Assessed Reason for Visit: Medication [...] Status:Closed by SALOME AGUILLON on 07/25/21 Normal [facility] CT CHEST WO IVCONon 02-14-20 21 Radiology Result ACTIONABLE Abnormal [facility] Basic Metab w/rfx MGon 08-02 (cont.) Normal [facility] Comment on above: Result Comment: Aver age GFR for 40-49 years old: 99 mL/min/1.73sq m Chronic Kidney Disease: <60 mL/min/1.73sq m Kidney failure: <15 mL/min/1.73sq m eGFR calculated using average adult body mass. Additional eGFR calculator available at: http://www.registracija vozila/multiple_crcl_2011.htm Performed By: #### C BC, BMPX ####[facility] [address]uz[address] [place] [address] Lab Director: Nate Stafford MD Anion gap [Moles/Vol] 11 mmol/L Normal 9-17 [facility] Comment on above: Performed By: #### C BC, BMPX ####[facility] [address] [place], [place] [phone] Director: Nate Stafford MD Calcium [Mass/Vol] 8.5 mg/dL Low 8.6-10.4 [facility] Comment on above: Performed By: #### C BC, BMPX ####[facility] [address] [place], [place] [phone] Director: Nate Stafford MD Chloride [Moles/Vol] 101 mmol/L Normal 98-107 [facility] Comment on above: Performed By: #### C BC, BMPX ####[facility] [address] [place], [place] [phone] Director: Nate Stafford MD CO2 [Moles/Vol] 23 mmol/L Normal 20-31 [facility] Comment on above: Performed By: #### C BC, BMPX ####[facility] [address] [place] [address] Lab Director: Nate Stafford MD Creatinine [Mass/Vol] 0.62 mg/dL Low 0.70-1.20 [facility] Comment on above: Performed By: #### C BC, BMPX ####[facility] [address] [place] [address] Lab Director: Nate Stafford MD GFR, Amer >60 Normal >60 [facility] Comment on above: Performed By: #### C BC, BMPX ####[facility] [address] [place], [place] [phone] Director: Nate Stafford MD GFR,non Amer >60 Normal >60 [facility] Comment on above: Performed By: #### C BC, BMPX ####[facility] [address] [place], [place] [phone] Director: Nate Stafford MD Glucose [Mass/Vol] 120 mg/dL High 70-99 [facility] Comment on above: Performed By: #### C BC, BMPX ####[facility] [address] [place], [place] [phone] Director: Nate Stafford MD Potassium [Moles/Vol] 4.3 mmol/L Normal 3.7-5.3 [facility] Comment on above: Performed By: #### C BC, BMPX ####[facility] [address] [place], [place] [phone] Director: Nate Stafford MD Sodium [Moles/Vol] 135 mmol/L Normal 135-144 [facility] Comment on above: Performed By: #### C BC, BMPX ####[facility] [address] [place], [place] [phone] Director: Nate Stafford MD Urea nitrogen [Mass/Vol] 14 mg/dL Normal 6-20 [facility] Comment on above: Performed By: #### C BC, BMPX ####[facility] [address] [place], [place] [phone] Lab Director: Nate Stafford MD BUN/CRE Ratio NOT REPORTED Normal 12-19 [facility] Comment on above: Performed By: #### C BC, BMPX ####[facility] [address] [place], [place] [phone] lab Director: Nate Stafford MD Staging: NOT REPORTED Normal [facility] Comment on above: Performed By: #### C BC, BMPX ####[facility] [address] [place], [place] [phone] lab Director: Nate Stafford MD Basic Metabolic Panel w/ Ref johnny to MGOrdered By: Halina Pathak on 08-02-2020 Anion gap [Moles/Vol] 11 mmol/L 9 - 17 mmol/L GTI Phone: Calcium [Mass/Vol] 8.5 mg/dL Low 8.6 - 10. 4 mg/dL [employer]TI Phone: Chloride [Moles/Vol] 101 mmol/L 98 - 10 7 mmol/L GTI Phone: CO2 [Moles/Vol] 23 mmol/L 20 - 31 mmol/L [employer]TI Phone: Creatinine [Mass/Vol] 0.62 mg/dL Low 0.70 - 1.20 mg/dL [employer]TI Phone: GFR >60 >60 mL/min [employer] Phone: GFR Non- >60 >60 mL/min GTI Phone: GFR/1.73 sq M.predicted MDRD (S/P/Bld) [Vol rate/Area] GTI Phone: Comment on above: Average GFR for 40-4 9 years old: 99 mL/min/1.73sq m Chronic Kidney Disease: <60 mL/min/1.73sq m Kidney failure: <15 mL/min/1.73sq m eGFR calculated using average adult body mass. Additional eGFR calculator available at: http://www.registracija vozila/multiple_crcl_2012.htm GFR/1.73 sq M.predicted MDRD (S/P/Bld) [Vol rate/Area] NOT REPORTED [employer] Phone: Glucose [Mass/Vol] 120 mg/dL High 70 - 99 mg/dL [employer]TI Phone: Interpretation and review of laboratory results Abnormal [employer] Phone: Potassium [Moles/Vol] 4.3 mmol/L 3.7 - 5.3 mmol/L [employer]TI Phone: Sodium [Moles/Vol] 135 mmol/L 135 - 144 mmol/L [employer]TI Phone: Urea nitrogen (BldV) [Mass/Vol] 14 mg/dL 6 - 20 mg/dL [employer]TI Phone: Urea nitrogen/Creatinine (Bld) [Mass ratio] NOT REPORTED GTI Phone: CBCon 08-02-2020 Erythrocyte distribution width (RBC) [Ratio] 13.0 % Normal 11.8-14.4 [facility] Comment on above: Performed By: #### C BC, BMPX ####[facility] [address] [place], [place] [phone] Lab Director: Nate Stafford MD Hematocrit (Bld) [Volume fraction] 41.8 % Normal 40.7-50.3 [facility] Comment on above: Performed By: #### C BC, BMPX ####[facility] [address] [place], [place] [id number] lab Director: Nate Stafford MD Hemoglobin (Bld) [Mass/Vol] 13.8 g/dL Normal 13.0-17.0 [facility] Comment on above: Performed By: #### C BC, BMPX ####[facility] [address] [place] [address] [phone] Director: Nate Stafford MD MCH (RBC) [Entitic mass] 29.3 pg Normal 25.2-33.5 [facility] Comment on above: Performed By: #### C BC, BMPX ####[address] [phone] Director: Nate Stafford MD MCHC (RBC) [Mass/Vol] 33.0 g/dL Normal 28.4-34.8 [facility] Comment on above: Performed By: #### C BC, BMPX ####[address] [address])[phone] Director: Nate Stafford MD MCV (RBC) [Entitic vol] 88.7 fL Normal 82.6-102.9 [facility] Comment on above: Performed By: #### C BC, BMPX ####[address] [address])[phone] Director: Nate Stafford MD NRBC Automated 0.0 per 100 WBC Normal 0.0 [facility] Comment on above: Performed By: #### C BC, BMPX ####[address] [address])[phone] Director: Nate Stafford MD Platelet mean volume (Bld) [Entitic vol] 10.9 fL Normal 8.1-13.5 [facility] Comment on above: Performed By: #### C BC, BMPX ####[address] [phone] Director: Nate Stafford MD Platelets (Bld) [#/Vol] 221 10*3/uL Normal 138-453 [facility] Comment on above: Performed By: #### C BC, BMPX ####[address] [place], [place] [phone] lab Director: Nate Stafford MD RBC (Bld) [#/Vol] 4.71 10*6/uL Normal 4.21-5.77 [facility] Comment on above: Performed By: #### C BC, BMPX ####[address] [address] [place], [place] [phone] lab Director: Nate Stafford MD WBC (Bld) [#/Vol] 10.6 10*3/uL Normal 3.5-11.3 [facility] Comment on above: Performed By: #### C BC, BMPX ####[address] [place], [place] [phone] lab Director: Nate Stafford MD CBCOrdered By: Halina Pathak on 08-02-2020 Hematocrit (Bld) [Volume fraction] 41.8 % 40.7 - 50.3 % [facility]TI Phone: Hemoglobin.gastroint estinal spec 1 Ql (Stl) 13.8 g/dL 13.0 - 17.0 g/dL [facility]TI Phone: MCH (RBC) [Entitic mass] 29.3 pg 25.2 - 33.5 pg [facility] Phone: MCHC (RBC) [Mass/Vol] 33.0 g/dL 28.4 - 34.8 g/dL [facility]TI Phone: MCV (RBC) [Entitic vol] 88.7 fL 82.6 - 102.9 fL [facility]TI Phone: NRBC Automated 0.0 0.0 per 100 WBC [facility]TI Phone: Platelet distribution width (Bld) [Ratio] 13.0 % 11.8 - 14.4 % [employer]TI Phone: Platelet mean volume (Bld) [Entitic vol] 10.9 fL 8.1 - 13.5 fL [employer]TI Phone: Platelets (Bld) [#/Vol] 221 10*3/uL [employer]TI Phone: RBC (Bld) [#/Vol] 4.71 10*6/uL 4.21 - 5.77 m/uL [facility]TI Phone: WBC (Bld) [#/Vol] 10.6 10*3/uL [facility]TI Phone: Trauma Profileon 08-02-2020 (cont.) Normal [facility] Comment on above: Result Comment: Aver age GFR for 40-49 years old: 99 mL/min/1.73sq m Chronic Kidney Disease: <60 mL/min/1.73sq m Kidney failure: <15 mL/min/1.73sq m eGFR calculated using average adult body mass. Additional eGFR calculator available at: http://www.registracija vozila/multiple_crcl_2012.htm Performed By: #### E ISABEL GRUBBS ####[facility] [address] [place] [address] Lab Director: Nate Stafford MD Anion gap [Moles/Vol] 10 mmol/L Normal 9-17 [facility] Comment on above: Performed By: #### E ISABEL GRUBBS ####[facility] [address] [place] [address] Lab Director: Nate Stafford MD Chloride [Moles/Vol] 100 mmol/L Normal 98-107 [facility] Comment on above: Performed By: #### E ISABEL GRUBBS ####[facility] [address] [place], [place] [phone] Lab Director: Nate Stafford MD CO2 [Moles/Vol] 24 mmol/L Normal 20-31 [facility] Comment on above: Performed By: #### E RTPF, TROPI ####[facility] [address] [place], [place] [phone] Director: Nate Stafford MD Creatinine [Mass/Vol] 0.71 mg/dL Normal 0.70-1.20 [facility] Comment on above: Performed By: #### E RTPF, TROPI ####[facility] [address] [place], [place] [phone] Director: Nate Stafford MD Ethanol [Mass/Vol] mg/dL Normal <10 [facility] Comment on above: Performed By: #### E RTPF, TROPI ####[facility] [address] [place], [place] [phone] Director: Nate Stafford MD Ethanol percent <0.010 Normal <0.010 [facility] Comment on above: Performed By: #### E RTPF, TROPI ####[facility] [address] [place], [place] [phone] Director: Nate Stafford MD GFR, Amer >60 Normal >60 [facility] Comment on above: Performed By: #### E RTPF, TROPI ####[facility] [address] [place], [place] [phone] Director: Nate Stafford MD GFR,non Amer >60 Normal >60 [facility] Comment on above: Performed By: #### E RTPF, TROPI ####[facility] [address] [place], [place] [phone] Director: Nate Stafford MD Glucose [Mass/Vol] 109 mg/dL High 70-99 [facility] Comment on above: Performed By: #### E RTPF, TROPI ####[facility] [address] [place], [place] [phone] Director: Nate Stafford MD Potassium [Moles/Vol] 4.2 mmol/L Normal 3.7-5.3 [facility] Comment on above: Performed By: #### E SHARLA GRUBBSI ####[facility] [address] [place], [place] [phone] Director: Nate Stafford MD Sodium [Moles/Vol] 134 mmol/L Low 135-144 [facility] Comment on above: Performed By: #### E ROMIE TROPI ####[facility] H[address]eosnil48[address] [place], [place] [phone] Director: Nate Stafford MD Urea nitrogen [Mass/Vol] 15 mg/dL Normal 6-20 [facility] Comment on above: Performed By: #### E ISABEL GRUBBS ####[facility] [address] [place], [place] [phone] Director: Nate Stafford MD Troponinon 08-02-2020 Troponin, High Sens 6 ng/L Normal 0-22 [facility] Comment on above: Result Comment: High Sensitivity Troponin values cannot be compared with other Troponin methodologies. Patients with high levels of Biotin oral intake (i.e >5mg/day) may have falsely decreased Troponin levels. Samples collected within 8 hours of biotin intake may require additional information for diagnosis. Performed By: #### E ISABEL GRUBBS ####[facility] [address] [place], [place] [phone] Director: Nate Stafford MD Type + Screenon 08-02-2020 Type + Screen Sample Expiration 08/04/2020,2359 Arm Band Number [id number] ABO/Rh(D) A NEGATIVE Antibody Screen NEGATIVE Normal [facility] Comment on above: Performed By: #### T YS ####[facility] [address] [place], [place] [phone])[phone] Director: Nate Stafford MD CT CERVICAL SPINE [...] Johnny Smalls MD 08/01/20 Final result Normal [facility] CT CERVICAL SPINE WO CONTRAS TOrdered By: Ronnie Lund on 08-01-2020 C6-7 cervical spondy losis and degenerative disc disease. Evidence of paracervical spasm. No acute bony abnormalities are noted [employer] Work Phone: EXAMINATION: CT OF T HE [...] intact. The visualized lung apices are clear. [employer] Work Phone: [place], pn Incoming R adiant Results From [employer] - 08/01/2020 7:04 PM EDT EXAMINATION: [...] spasm. No acute bony abnormalities are noted [employer] Work Phone: CT CHEST ABDOMEN PELVIS W [...] Elizabeth Shoemaker MD 08/01/20 Final result Normal [facility] CT CHEST ABDOMEN PELVIS W CO [...] to Lung-RADS guidelines. Reference: Radiology. 2017; 284(1):228-43. [facility] Phone: EXAMINATION: CT OF T HE CHEST, [...] hernia. Bones/Soft Tissues: No acute osseous abnormality. [facility]TI Phone: [place], Mhpn Incoming R adiant Results From [employer] - 08/01/2020 7:19 PM EDT EXAMINATION: [...] to Lung-RADS guidelines. Reference: Radiology. 2017; 284(1):228-43. GTI Phone: CT HEAD WO CONTRASTon 2020 CT [...] Jarek Fernández MD 08/01/20 Final result Normal [facility] CT Head WO ContrastOrdered B y: Ronnie Lund on 08-01-2020 1. No acute intracra nial abnormality. [facility]TI Phone: EXAMINATION: CT OF T HE HEAD [...] clear. SOFT TISSUES/SKULL: The calvarium is intact. [facility]TI Phone: [place], Mhpn Incoming R adiant Results From [employer] - 08/01/2020 7:01 PM EDT EXAMINATION: [...] intact. IMPRESSION: 1. No acute intracranial abnormality. [facility]TI Phone: CT LUMBAR SPINE TRAUMA RECON STRUCTIONon [...] Interpreted by: Johnny Smalls MD Signed by: Jonhny Smalls MD 08/01/20 Final result Normal [facility] CT THORACIC SPINE TRAUMA REC ONSTRUCTIONon [...] Johnny Smalls MD 08/01/20 Final result Normal [facility] Drug Scr, Abuse, Uron 2020 Amphetamine(s),Ur Negative Normal NEG [facility] Comment on above: Result Comment: (Positive cutoff 1000 ng/mL) Performed By: #### U AMIC, LOUIS #### [facility] [address] [place] [address] Architect: Nate Stafford MD Barbiturate(s),Ur Negative Normal NEG [facility] Comment on above: Result Comment: (Positive cutoff 200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 INDIV EACH 15 TN MEDICAL NUTRITION ASSMT&IVNTJ INDIV EACH 15 TN MEDICAL NUTRITION ASSMT&IVNTJ INDIV EACH 15 [place] MEDICAL NUTRITION ASSMT&IVNTJ INDIV EACH 15 TN Salome Aguillon, PLATE MOUNTER.COMBO WELDER [address] [place] [address] Referral ID Status Reason Start Date Expiration Date Visits Requested Visits Authorized [id number] Pending Review PCP Requested Referral 05/21/2022 05/21/2023 1 1 Reason evaluate and treat Diagnosis 1 Lumbar radiculopathy , right (M54.16) Referral Organization [facility] urosurgery Referring Provider First Name Siri Referring Provider Last Name Damien Referring Provider Specialty Nurse Pract itioner Referred Organization [facility] Referred Provider Cyndi Mejia Referred Address [address], [place],[address] Referred Provider Specialty Pain Medicin e Referral Priority Routine General Notes Anita Jacobsen 023 02:42:58 PM >Received today and waiting for office notes to be locked before sending referral Reason weight managment Diagnosis 1 BMI 50.0-59.9, adult (Z68.43) Referral Organization [facility] urosurgery Referring Provider First Name Siri Referring Provider Last Name Damien Referring Provider Specialty Nurse Pract itioner Referred Organization [facility] Referred Provider Reece Cyr Referred Address [address],[place], [place],[address] Referred Provider Specialty Internal Med icine Referral Priority Routine General Notes Anita Jacobsen 023 01:36:37 PM >Received today and sent P2P Reason evaluate and treat Diagnosis 1 Lumbar radiculopathy , right (M54.16) Referral Organization [facility] Referring Provider First Name Siri Referring Provider Last Name Damien Referring Provider Specialty Nurse Pract itionerosanna Referred Organization 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 Advance Directive(s) 01/24/2021 2:04 PM Advance Directive(s) 12/27/2020 12:28 PM Documents on File Type Date Recorded 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 Advance Directive(s) 07/31/2021 8:28 AM Advance Directive(s) 01/24/2021 2:04 PM Advance Directive(s) 12/27/2020 12:28 PM Documents on File Type Date Recorded 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 Advance Directive(s) 07/31/2021 8:28 AM [...] Starting on Jillian 08/10/21 at 0948, Until Tu09/19/21 at 1535, Per Protocol - for use [...] hematoma, initial encounter Juanita Carmona MD [address], [place] [address] [facility] Reason Onset Date Comments PHMA/Care Gap Outreach 06/27/2021 BP, colo Reason Comments Medication Problem Reason Comments Rx Refills Reason Comments Outpatient Colonoscopy Reason Comments Physical colonoscopy result Reason Comments New Patient [place] Obesity Specialty Diagnoses / Procedures Referred By Contac t Referred To Contact Diagnoses Morbid obesity with BMI of 50.0-59.9, adult (HCC) Procedures ENDOCRINE MEDICAL WEIGHT MANAGEMENT OFFICE/OUTPATIENT [facility] 60-74 MINUTES Salome Aguillon APRN.COMBO WELDER [address] [place] [address] Referral ID Status Reason Start Date Expiration Date Visits Requested Visits Authorized [id number] Pending Review PCP Requested Referral 08/10/2021 08/10/2022 [...] TO NUTRITION THERAPY OFFICE/OUTPATIENT [facility] 60-74 MINUTES Anh Mena MD [address] [facility], [address] [place] [address] Referral ID Status Reason Start Date Expiration Date Visits Requested Visits Authorized [id number] Pending Review PCP Requested Referral 08/15/2021 11/13/2021 1 1 Reason Comments Medical Weight Management Specialty Diagnoses / Procedures Referred By Contac t Referred To Contact CT IMAGING Diagnoses Lung nodules Procedures CT CHEST WO IVCON CAT SCAN OF CHEST Trey Sharma MD [address] [address] [address] Imaging Referral ID Status Reason Start Date Expiration Date V isits Requested Visits Authorized [id number] Closed Auto-Generate d Referral 08/11/2021 04/29/2022 1 [...] section and content) DATE CREATED AUTHOR 08/08/2020 [facility] DATE CREATED AUTHOR AUTHOR'S ORGANIZ ATION 08/01/2021 [facility] DATE CREATED AUTHOR AUTHOR'S ORGANIZ ATION 09/21/2021 [facility] DATE CREATED AUTHOR AUTHOR'S ORGANIZ ATION 04/25/2022 [facility] DATE CREATED AUTHOR AUTHOR'S ORGANIZ ATION 05/27/2022 [facility] DATE CREATED AUTHOR AUTHOR'S ORGANIZ ATION 05/31/2022 [facility] DATE CREATED AUTHOR AUTHOR'S ORGANIZ ATION 03/09/2023 [facility] DATE CREATED AUTHOR AUTHOR'S ORGANIZ ATION 04/13/2023 [facility] DATE CREATED AUTHOR AUTHOR'S ORGANIZ ATION 04/26/2023 [facility] DATE CREATED AUTHOR AUTHOR'S ORGANIZ ATION 06/18/2023 [facility] DATE CREATED AUTHOR AUTHOR'S ORGANIZ ATION 06/21/2023 [facility] DATE CREATED AUTHOR AUTHOR'S ORGANIZ ATION 06/24/2023 [facility] Source Comments (unrecognize d section and content) In the event this informatio n is protected by the Federal Confidentiality of Alcohol and Drug Abuse Patient Records regulations: The Federal rules restrict any use of the information to criminally investigate or prosecute any alcohol or drug abuse patient.[facility] the event this information is protected by the Federal Confidentiality of Alcohol and Drug Abuse Patient Records regulations: The Federal rules restrict any use of the information to criminally investigate or prosecute any alcohol or drug abuse patient.[facility] the event this information is protected by the Federal Confidentiality of Alcohol and Drug Abuse Patient Records regulations: The Federal rules restrict any use of the information to criminally investigate or prosecute any alcohol or drug abuse patient.[facility] the event this information is protected by the Federal Confidentiality of Alcohol and Drug Abuse Patient Records regulations: The Federal rules restrict any use of the information to criminally investigate or prosecute any alcohol or drug abuse patient.[facility] HospitalIn the event this information is protected by the Federal Confidentiality of Alcohol and Drug Abuse Patient Records regulations: The Federal rules restrict any use of the information to criminally investigate or prosecute any alcohol or drug abuse patient.[facility] HospitalIn the event this information is protected by the Federal Confidentiality of Alcohol and Drug Abuse Patient Records regulations: The Federal rules restrict any use of the information to criminally investigate or prosecute any alcohol or drug abuse patient.[facility] HospitalIn the event this information is protected by the Federal Confidentiality of Alcohol and Drug Abuse Patient Records regulations: The Federal rules restrict any use of the information to criminally investigate or prosecute any alcohol or drug abuse patient.[facility] HospitalIn the event this information is protected by the Federal Confidentiality of Alcohol and Drug Abuse Patient Records regulations: The Federal rules restrict any use of the information to criminally investigate or prosecute any alcohol or drug abuse patient.[facility] HospitalIn the event this information is protected by the Federal Confidentiality of Alcohol and Drug Abuse Patient Records regulations: The Federal rules restrict any use of the information to criminally investigate or prosecute any alcohol or drug abuse patient.[facility] HospitalIn the event this information is protected by the Federal Confidentiality of Alcohol and Drug Abuse Patient Records regulations: The Federal rules restrict any use of the information to criminally investigate or prosecute any alcohol or drug abuse patient.[facility] HospitalIn the event this information is protected by the Federal Confidentiality of Alcohol and Drug Abuse Patient Records regulations: The Federal rules restrict any use of the information to criminally investigate or prosecute any alcohol or drug abuse patient.[facility] HospitalIn the event this information is protected by the Federal Confidentiality of Alcohol and Drug Abuse Patient Records regulations: The Federal rules restrict any use of the information to criminally investigate or prosecute any alcohol or drug abuse patient.[facility] HospitalIn the event this information is protected by the Federal Confidentiality of Alcohol and Drug Abuse Patient Records regulations: The Federal rules restrict any use of the information to criminally investigate or prosecute any alcohol or drug abuse patient.[facility] HospitalIn the event this information is protected by the Federal Confidentiality of Alcohol and Drug Abuse Patient Records regulations: The Federal rules restrict any use of the information to criminally investigate or prosecute any alcohol or drug abuse patient.[facility] HospitalIn the event this information is protected by the Federal Confidentiality of Alcohol and Drug Abuse Patient Records regulations: The Federal rules restrict any use of the information to criminally investigate or prosecute any alcohol or drug abuse patient.[facility] HospitalIn the event this information is protected by the Federal Confidentiality of Alcohol and Drug Abuse Patient Records regulations: The Federal rules restrict any use of the information to criminally investigate or prosecute any alcohol or drug abuse patient.[facility] HospitalIn the event this information is protected by the Federal Confidentiality of Alcohol and Drug Abuse Patient Records regulations: The Federal rules restrict any use of the information to criminally investigate or prosecute any alcohol or drug abuse patient.[facility] HospitalIn the event this information is protected by the Federal Confidentiality of Alcohol and Drug Abuse Patient Records regulations: The Federal rules restrict any use of the information to criminally investigate or prosecute any alcohol or drug abuse patient.[facility] HospitalIn the event this information is protected by the Federal Confidentiality of Alcohol and Drug Abuse Patient Records regulations: The Federal rules restrict any use of the information to criminally investigate or prosecute any alcohol or drug abuse patient.[facility] HospitalIn the event this information is protected by the Federal Confidentiality of Alcohol and Drug Abuse Patient Records regulations: The Federal rules restrict any use of the information to criminally investigate or prosecute any alcohol or drug abuse patient.[facility] HospitalIn the event this information is protected by the Federal Confidentiality of Alcohol and Drug Abuse Patient Records regulations: The Federal rules restrict any use of the information to criminally investigate or prosecute any alcohol or drug abuse patient.[facility] HospitalIn the event this information is protected by the Federal Confidentiality of Alcohol and Drug Abuse Patient Records regulations: The Federal rules restrict any use of the information to criminally investigate or prosecute any alcohol or drug abuse patient.[facility] HospitalIn the event this information is protected by the Federal Confidentiality of Alcohol and Drug Abuse Patient Records regulations: The Federal rules restrict any use of the information to criminally investigate or prosecute any alcohol or drug abuse patient.[facility] HospitalIn the event this information is protected by the Federal Confidentiality of Alcohol and Drug Abuse Patient Records regulations: The Federal rules restrict any use of the information to criminally investigate or prosecute any alcohol or drug abuse patient.[facility] HospitalIn the event this information is protected by the Federal Confidentiality of Alcohol and Drug Abuse Patient Records regulations: The Federal rules restrict any use of the information to criminally investigate or prosecute any alcohol or drug abuse patient.[facility] HospitalIn the event this information is protected by the Federal Confidentiality of Alcohol and Drug Abuse Patient Records regulations: The Federal rules restrict any use of the information to criminally investigate or prosecute any alcohol or drug abuse patient.[facility] HospitalIn the event this information is protected by the Federal Confidentiality of Alcohol and Drug Abuse Patient Records regulations: The Federal rules restrict any use of the information to criminally investigate or prosecute any alcohol or drug abuse patient.[facility] HospitalIn the event this information is protected by the Federal Confidentiality of Alcohol and Drug Abuse Patient Records regulations: The Federal rules restrict any use of the information to criminally investigate or prosecute any alcohol or drug abuse patient.[facility] HospitalIn the event this information is protected by the Federal Confidentiality of Alcohol and Drug Abuse Patient Records regulations: The Federal rules restrict any use of the information to criminally investigate or prosecute any alcohol or drug abuse patient.[facility] HospitalIn the event this information is protected by the Federal Confidentiality of Alcohol and Drug Abuse Patient Records regulations: The Federal rules restrict any use of the information to criminally investigate or prosecute any alcohol or drug abuse patient.[facility] Care Teams (unrecognized sec tion and content) Blueprinting Machine Operator Relationship Specialty Start Date End Date Salome Aguillon, PLATE MOUNTER.[employer] W[employer]DER [address] [place] [address] PCP - General Family Practice 11/23/19 Blueprinting Machine Operator Relationship Specialty Start Date End Date Salome Aguillon, PLATE MOUNTER.COM[employer] WELDER [address] [place] [address] PCP - General Family Practice 11/23/19 Blueprinting Machine Operator Relationship Specialty Start Date End Date [facility] Salome, PLATE MOUNTER.COM[employer] W[address] [place] [address] PCP - General Family Practice 11/23/19 Blueprinting Machine Operator Relationship Specialty Start Date End Date [facility] Salome, PLATE MOUNTER.[address] W[address] [place] [address] PCP - General Family Practice 11/23/19 Blueprinting Machine Operator Relationship Specialty Start Date End Date [facility] Salome, PLATE MOUNTER.[address] W[address] [place] [address] PCP - General Family Practice 11/23/19 Blueprinting Machine Operator Relationship Specialty Start Date End Date [facility]ATE MOUNTER.[address] W[address] [place] [address] PCP - General Family Practice 11/23/19 Blueprinting Machine Operator Relationship Specialty Start Date End Date [facility] PLATE MOUNTER.[address] W[address] [place] [address] PCP - General Family Practice 11/23/19 Blueprinting Machine Operator Relationship Specialty Start Date End Date [facility], PLATE MOUNTER.[employer] W[address] [place] [address] PCP - General Family Practice 11/23/19 Blueprinting Machine Operator Relationship Specialty Start Date End Date [facility] PLATE MOUNTER.[address] W[address] [place] [address] PCP - General Family Practice 11/23/19 Blueprinting Machine Operator Relationship Specialty Start Date End Date [facility], PLATE MOUNTER.[address] W[address] [place] [address] PCP - General Family Practice 11/23/19 Blueprinting Machine Operator Relationship Specialty Start Date End Date [facility], PLATE MOUNTER.[address] [address] [place] [address] PCP - General Family Practice 11/23/19 Blueprinting Machine Operator Relationship Specialty Start Date End Date [facility] PLATE MOUNTER.[address] W[address] [place] [address] PCP - General Family Practice 11/23/19 Blueprinting Machine Operator Relationship Specialty Start Date End Date [facility] PLATE MOUNTER.[address] W[address] [place] [address] PCP - General Family Practice 11/23/19 Blueprinting Machine Operator Relationship Specialty Start Date End Date [facility] PLATE MOUNTER.[address] W[address] [place] [address] PCP - General Family Practice 11/23/19 Blueprinting Machine Operator Relationship Specialty Start Date End Date [facility] PLATE MOUNTER.[address] W[address] [place] [address] PCP - General Family Practice 11/23/19 Blueprinting Machine Operator Relationship Specialty Start Date End Date [facility] PLATE MOUNTER.COM[employer] W[address] [place] [address] PCP - General Family Medicine 11/23/19 Blueprinting Machine Operator Relationship Specialty Start Date End Date [facility], PLATE MOUNTER.COM[employer] WEL[address] [place] [address] PCP - General Family Medicine 11/23/19 Blueprinting Machine Operator Relationship Specialty Start Date End Date [facility], PLATE MOUNTER.COM[employer] WEL[address] [place] [address] PCP - General Family Medicine 11/23/19 Blueprinting Machine Operator Relationship Specialty Start Date End Date [facility], PLATE MOUNTER.[address] W[address] [place] [address] PCP - General Family Medicine 11/23/19 Blueprinting Machine Operator Relationship Specialty Start Date End Date [facility] PLATE MOUNTER.[address] W[address] [place] [address] PCP - General Family Medicine 11/23/19 Blueprinting Machine Operator Relationship Specialty Start Date End Date [facility], PLATE MOUNTER.[address] W[address] [place] [address] PCP - General Family Medicine 11/23/19 Blueprinting Machine Operator Relationship Specialty Start Date End Date [facility], PLATE MOUNTER.COM[employer] W[address] [place] [address] PCP - General Family Medicine 11/23/19 Blueprinting Machine Operator Relationship Specialty Start Date End Date [facility], PLATE MOUNTER.[address] W[address] [place] [address] PCP - General Family Medicine 11/23/19 Blueprinting Machine Operator Relationship Specialty Start Date End Date [facility], PLATE MOUNTER.COM[employer] W[address] [place] [address] PCP - General Family Medicine 11/23/19 Blueprinting Machine Operator Relationship Specialty Start Date End Date [facility] PLATE MOUNTER.COM[employer] W[address] [place] [address] PCP - General Family Medicine 11/23/19 Blueprinting Machine Operator Relationship Specialty Start Date End Date [facility], PLATE MOUNTER.COM[employer] WEL[address] [place] [address] PCP - General Family Medicine 11/23/19 Blueprinting Machine Operator Relationship Specialty Start Date End Date [facility], PLATE MOUNTER.COM[employer] WEL[address] [place] [address] PCP - General Family Medicine 11/23/19 Team Status: Active Member Role Status Dates Vonnie Guerrero , ROOFING MACHINE TENDER-C Primary Care Provider Active Team Status: Inactive Member Role Status Dates Vonnie Guerrero , ROOFING MACHINE TENDER-C Primary Care Provider Active Siri Quezada NP-C Attending Provider Active Team Status: Inactive Member Role Status Dates Salome Aguillon , ROOFING MACHINE TENDER-C Primary Care Provider Mis Yi NP-C Attending Provider Active Team Status: Inactive Member Role Status Dates Salome Aguillon , ROOFING MACHINE TENDER-C Primary Care Provider Marcosi tyler Quezada , ROOFING MACHINE TENDER-C Attending Provider Active Team Status: Inactive Member Role Status Dates Huan Cowan DO Attending Provider Active Team Status: Active Member Role Status Dates Vonnie Guerrero , ROOFING MACHINE TENDER-C Primary Care Provider Active Siri Quezada NP-C [...] BE BASED ON THE PRIMARY CLINICAL RECORDS. [employer]. provides no warranty or guarantee of the accuracy or completeness of information in this document.
== END 2023-06-20 08:14 | disposition home or self-care (01) ==
LOC: INF 06-19 07:30 → MS 06-20 07:46 → INF 06-20 08:13 → MS 06-24 07:52
PROVIDERS: PCP Nurse Practitioner; Visit Provider Family Medicine
DX: R78.81 Bacteremia (principal); B96.89 Other specified bacterial agents as the cause of diseases classified elsewhere
CPT/HCPCS: 0202U; 36415; 36592; 51702; 80053; 80202; 85007; 85027; 87040; 87804; 87811; 96360; 96365; 96366; 96374; 96375; G0463; J3370

== ENCOUNTER 2023-06-20 08:16 | Outpatient (OUT) | payer BC, SELFPAY ==
--- OUTSIDE RECORDS SUMMARY | 2023-06-20 07:36 | XMS_ITS | CCD ---
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 kidney stones, JACOBY History of seeing any specialist: Dr cowan ortho When was your last doctors visit: Last provider: Dr Aguillon Any recent labs: [facility] around 8 months ago Flu: refused Health Maintenance UTD: Colonoscopy: 2021 PSA: unsure if it has ever been checked Acute: Current issues/complaints: Pt has sleep study done and uses machine would like cpap supplies sent to [facility] in [place] pt does wear full mask- Resmed Air [...] provided. pt will have them done at [facility] on Saturday. Ordered: Misc Prescription, Full [...] will send order to medical supplies in [place] Ordered: Misc Prescription, Full Mask Resmed Air [...] Daily, # 90 tab(s), Refills(s) 3, Pharmacy: [facility]/pharmacy #[id number], 185.5, cm, 01/09/23 16:37:00 EDT, Height/Length Dosing, 174.3, kg, 01/09/23 16:37:00 EDT, Weight Dosing Follow-up No qualifying data (more content not included)... Normal [facility] Comment on above: Result Comment: Elec tronically Signed By: Vonnie Gardner\.margie\Date and Time Signed: 04/30/23 14:06 EST Operative Reporton 4 Operative Report [id number]#1.00TIFF Normal [facility] MR SHOULDER LEFT WO IV [...] Not Available Comment on above: Order Comment: [facility] - C9 Approved Patient had Left Shoulder surgery 1 year ago Previous MRI Lab Reportson 03-14-2023 Lab Reports [id number]#1.00TIFF Normal [facility] Lab Miscellaneous-LCon 03-13 Lab Miscellaneous See Ref Report Invalid Interpretation Code [facility] Comment on above: Performed By: #### 1 [id number] ####[facility] [address] [place] [address] Reference Lab Reporton 03-13 Reference Lab Report [id number]#1.00TIFF Normal [facility] Lab Miscellaneous-LCon 03-12 Lab Miscellaneous See Ref Report Invalid Interpretation Code [facility] Comment on above: Result Comment: Perf ormed at: [employer] [id number] PhD João Blankenship See scanned report Performed at: [address] [id number] PhD João Blankenship Performed By: #### 1 [id number] #### [facility] [address] [place] [address] Reference Lab Reporton 03-12 Reference Lab Report [id number]#1.00TIFF Normal [facility] Lab Miscellaneous-LCon 03-08 Lab Miscellaneous 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 Performed By: #### 2 284160, 1484126, 6051853 #### [facility] [address] [place] [address] Basophils/Leukocytes Auto (Bld) [Pure # fraction] 0.1 E9/L Normal 0.0-0.2 [facility] Comment on above: Order Comment: Order Added by Discern Expert. Performed By: #### 2 657482, 8823590, 0123178 #### [facility] [address] [place] [address] Eosinophils/100 WBC (Bld) 2.6 % Normal 0.0-8.0 [facility] Comment on above: Order Comment: Order Added by Discern Expert. Performed By: #### 2 511724, 9982723, 5030309 #### [facility] [address] [place] [address] Eosinophils/Leukocyt es Auto (Bld) [Pure # fraction] 0.2 E9/L Normal 0.0-0.5 [facility] Comment on above: Order Comment: Order Added by Discern Expert. Performed By: #### 2 791009, 0000705, 1132046 #### [facility] [address] [place] [address] Lymphocytes/100 WBC (Bld) 18.6 % Normal 14.0-50.0 [facility] Comment on above: Order Comment: Order Added by Discern Expert. Performed By: #### 2 436372, 1876560, 5139910 #### [facility] [address] [place] [address] Lymphocytes/Leukocyt es Auto (Bld) [Pure # fraction] 1.3 E9/L Normal 1.0-4.0 [facility] Comment on above: Order Comment: Order Added by Discern Expert. Performed By: #### 2 541867, 0354506, 8283986 #### [facility] [address] [place] [address] Monocytes/100 WBC (Bld) 10.3 % Normal 4.0-14.0 [facility] Comment on above: Order Comment: Order Added by Discern Expert. Performed By: #### 2 461826, 3516404, 5092735 #### [facility] [address] [place] [address] Monocytes/Leukocytes Auto (Bld) [Pure # fraction] 0.7 E9/L Normal 0.2-1.0 [facility] Comment on above: Order Comment: Order Added by Discern Expert. Performed By: #### 2 621582, 1032490, 4832655 #### [facility] [address] [place] [address] Neutrophils/100 WBC (Bld) 67.8 % Normal 36.0-75.0 [facility] Comment on above: Order Comment: Order Added by Discern Expert. Performed By: #### 2 307162, 2525278, 7818663 #### [facility] [address] [place] [address] Neutrophils/Leukocyt es Auto (Bld) [Pure # fraction] 4.8 E9/L Normal 2.0-7.5 [facility] Comment on above: Order Comment: Order Added by Discern Expert. Performed By: #### 2 717170, 6961155, 7871621 #### [facility] [address] [place] [address] CBC w/ Auto Diffon 3 Erythrocyte distribution width (RBC) [Ratio] 13.1 % Normal 10.9-14.2 [facility] Comment on above: Performed By: #### 2 046936, 2232075, 1482675 #### [facility] [address] [place] [address] Hematocrit (Bld) [Volume fraction] 39.2 % Normal 37.7-49.0 [facility] Comment on above: Performed By: #### 2 506188, 5537049, 1669176 #### [facility] [address] [place] [address] Hemoglobin (Bld) [Mass/Vol] 13.4 g/dL Low 13.5-17.5 [facility] Comment on above: Performed By: #### 2 259669, 8580009, 6118784 #### [facility] [address] [place] [address]67 MCH (RBC) [Entitic mass] 29.0 pg Normal 27.0-34.0 [facility] Comment on above: Performed By: #### 2 957228, 8198291, 2815068 #### [facility] [address] [place] [address] MCHC (RBC) [Mass/Vol] 34.3 g/dL Normal 31.4-36.0 [facility] Comment on above: Performed By: #### 2 379790, 1075383, 2525202 #### [facility] [address] [place] [address] MCV (RBC) [Entitic vol] 84.6 fL Normal 80.0-100.0 [facility] Comment on above: Performed By: #### 2 570136, 4599194, 3840352 #### [facility] [address] [place] [address] Platelet mean volume (Bld) [Entitic vol] 7.7 fL Normal 6.4-10.8 [facility] Comment on above: Performed By: #### 2 269659, 8238845, 2225958 #### [facility] [address] [place] [address] Platelets (Bld) [#/Vol] 261.0 E9/L Normal 150.0-500. 0 [facility] Comment on above: Performed By: #### 2 598927, 8281452, 7576501 #### [facility] [address] [place] [address] RBC (Bld) [#/Vol] 4.6 E12/L Normal 4.3-5.9 [facility] Comment on above: Performed By: #### 2 105086, 8602265, 5866900 #### [facility] [address] [place] [address] WBC corrected for nucl RBC Auto (Bld) [#/Vol] 7.1 E9/L Normal 4.0-11.0 [facility] Comment on above: Performed By: #### 2 905927, 1489642, 1957476 #### [facility] [address] [place] [address] CHEMISTRYOrdered By: SYSTEM SYSTEM on 03-07-2023 CRP [Mass/Vol] 1.8 mg/dL Normal <=1.9mg/dL [facility] Remis ol CRPon 03-07-2023 CRP [Mass/Vol] 1.8 mg/dL Normal <=1.9 [facility] Comment on above: Performed By: #### 2 467158, 1453640, 4515663 #### [facility] [address] [place] [address] Consent for Treatmenton Consent for Treatment [id number]#1.00TIFF Normal [facility] Erythrocyte Sedimentation Ra aniya 03-07-2023 ESR (Bld) [Velocity] 9 mm/h Normal 0-19 [facility] Comment on above: Result Comment: PERF ORMED BY: [place] [address] PATHOLOGIST ENVIRONMENTAL AIR SPECIALIST BARI GREENE M.D. Performed By: #### E #### [address] Erythrocyte sedimentation ra te by Photometric methodOrdered By: Huan Cowan on 03-07-2023 ESR Photometric method (Bld) [Velocity] 9 mm/hr 0-19 [facility] HEMATOLOGYOrdered By: SYSTEM SYSTEM on 03-07-2023 Basophils/100 [...] 29.0 pg Normal 27.0 - 34.0 pg [facility] HemeAutoSS MCHC (RBC) [Mass/Vol] 34.3 g/dL Normal 31.4 - 36.0 gm/dL [facility] HemeAutoSS MCV (RBC) [Entitic vol] 84.6 fL Normal 80.0 - 100.0 fL FT HemeAutoSS Platelet mean volume (Bld) [Entitic vol] 7.7 fL Normal 6.4 - 10.8 fL [facility] HemeAutoSS Platelets (Bld) [#/Vol] 261.0 E9/L Normal 150.0 - 500.0 E9/L [facility] HemeAutoSS RBC (Bld) [#/Vol] 4.6 E12/L Normal 4.3 - 5.9 E12/L [facility] HemeAutoSS WBC corrected for nucl RBC Auto (Bld) [#/Vol] 7.1 E9/L Normal 4.0 - 11.0 E9/L [facility] HemeAutoSS Lab Miscellaneous-LCon 03-07 Test Code 081364 Invalid Interpretation Code [facility] Comment on above: Performed By: #### 1 [id number] #### [facility] [address] [place] [address] Test Code TO [place]REL[place] Invalid Interpretation Code [facility] Comment on above: Performed By: #### 1 [id number] #### [facility] [address] [place] [address] Test Name IL 6 Invalid Interpretation Code [facility] Comment on above: Performed By: #### 1 [id number] #### [facility] [address] [place] [address] Test Name SED RATE/FIREAL Invalid Interpretation Code [facility] Comment on above: Performed By: #### 1 [id number] #### [facility] [address] [place] [address] Physician Orderon 03-07-2023 Physician Order [id number]#1.00TIFF Normal [facility] Reference Laboratory Testing Ordered By: Yasmeen Ca on 03-07-2023 Sodium [Moles/Vol] 440467 mmol/L Invalid Interpretation Code [facility] SendOutsSS Test Code TO [facility] Invalid Interpretation Code [facility] SendOutsSS Test Name SED RATE/FIREAL Invalid Interpretation Code [facility] SendOutsSS Test Name [place] 6 Invalid Interpretation Code [facility] SendOutsSS Operative Reporton Operative Report [id number]#1.00TIFF Normal [facility] Formson 02-27-2023 Forms [id number]#1.00TIFF Normal [facility] Provider Letteron 02-27-2023 Provider Letter (Inserted Image. Jessica ble to display) [address] [id number] February 27, 2023 NEHAL [address] [place] [address] : [address] Mazariegos, The above patient has been evaluated at your request for preoperative clearance. After assessment of available pertinent labs and diagnostic tests, I feel this patient is medically optimized for surgery. Final discretion of whether the patient is cleared for surgery remains up to the surgeon/anesthesiologist. Thank you, MOSHE Mota Normal [facility] Auto Diffon 02-26-2023 Basophils/100 WBC (Bld) 0.6 % Normal 0.0-2.0 [facility] Comment on above: Order Comment: Order Added by Discern Expert. Performed By: #### 2 828376, 6074450 ####[facility] [address] [place] [address] Basophils/Leukocytes Auto (Bld) [Pure # fraction] 0.1 E9/L Normal 0.0-0.2 [facility] Comment on above: Order Comment: Order Added by Discern Expert. Performed By: #### 2 326880, 5424678 ####[facility] [address] [place] [address] Eosinophils/100 WBC (Bld) 2.3 % Normal 0.0-8.0 [facility] Comment on above: Order Comment: Order Added by Discern Expert. Performed By: #### 2 646102, 2263134 ####[facility] [address] [place] [address] Eosinophils/Leukocyt es Auto (Bld) [Pure # fraction] 0.2 E9/L Normal 0.0-0.5 [facility] Comment on above: Order Comment: Order Added by Discern Expert. Performed By: #### 2 668740, 7413769 ####[address] [address] Lymphocytes/100 WBC (Bld) 16.2 % Normal 14.0-50.0 [facility] Comment on above: Order Comment: Order Added by Wilbert Expert. Performed By: #### 2 410751, 4706852 ####[address] [address] Lymphocytes/Leukocyt es Auto (Bld) [Pure # fraction] 1.5 E9/L Normal 1.0-4.0 [facility] Comment on above: Order Comment: Order Added by Wilbert Expert. Performed By: #### 2 704063, 8681410 ####[address] [address] Monocytes/100 WBC (Bld) 6.8 % Normal 4.0-14.0 [facility] Comment on above: Order Comment: Order Added by Wilbert Expert. Performed By: #### 2 142606, 1842845 ####[address] [address] Monocytes/Leukocytes Auto (Bld) [Pure # fraction] 0.6 E9/L Normal 0.2-1.0 [facility] Comment on above: Order Comment: Order Added by Wilbert Expert. Performed By: #### 2 076449, 0452192 ####[address] [address] Neutrophils/100 WBC (Bld) 74.1 % Normal 36.0-75.0 [facility] Comment on above: Order Comment: Order Added by Discern Expert. Performed By: #### 2 030008, 4824709 ####[address] [place] [address] Neutrophils/Leukocyt es Auto (Bld) [Pure # fraction] 6.6 E9/L Normal 2.0-7.5 [facility] Comment on above: Order Comment: Order Added by Discern Expert. Performed By: #### 2 168032, 6875437 ####[address] [address] CBC w/ Auto Diffon Erythrocyte distribution width (RBC) [Ratio] 13.6 % Normal 10.9-14.2 [facility] Comment on above: Performed By: #### 2 758854, 6194941 ####[address] [address] Hematocrit (Bld) [Volume fraction] 40.5 % Normal 37.7-49.0 [facility] Comment on above: Performed By: #### 2 835627, 0668799 ####[address] [address] Hemoglobin (Bld) [Mass/Vol] 13.9 g/dL Normal 13.5-17.5 [facility] Comment on above: Performed By: #### 2 133924, 7028225 ####[address] [address] MCH (RBC) [Entitic mass] 28.9 pg Normal 27.0-34.0 [facility] Comment on above: Performed By: #### 2 330738, 0027312 ####[address] [address] MCHC (RBC) [Mass/Vol] 34.3 g/dL Normal 31.4-36.0 [facility] Comment on above: Performed By: #### 2 210594, 3179661 ####[address] [address] MCV (RBC) [Entitic vol] 84.2 fL Normal 80.0-100.0 [facility] Comment on above: Performed By: #### 2 555520, 4117788 ####[address] [place] [address] Platelet mean volume (Bld) [Entitic vol] 7.7 fL Normal 6.4-10.8 [facility] Comment on above: Performed By: #### 2 798204, 1088728 ####[address] [address] Platelets (Bld) [#/Vol] 244.0 E9/L Normal 150.0-500. 0 [facility] Comment on above: Performed By: #### 2 086009, 6157049 ####[address] [address] RBC (Bld) [#/Vol] 4.8 E12/L Normal 4.3-5.9 [facility] Comment on above: Performed By: #### 2 412263, 3788809 ####[address] [address] WBC corrected for nucl RBC Auto (Bld) [#/Vol] 8.9 E9/L Normal 4.0-11.0 [facility] Comment on above: Performed By: #### 2 048539, 0097335 ####[address] [address] Consent for Treatmenton 01-31 Consent for Treatment [id number]#1.00TIFF Normal [facility] HEMATOLOGYOrdered By: SYSTEM SYSTEM on [...] 4.8 E12/L Normal 4.3 - 5.9 E12/L [facility] HemeAutoSS WBC corrected for nucl RBC Auto (Bld) [#/Vol] 8.9 E9/L Normal 4.0 - 11.0 E9/L [facility] HemeAutoSS Physician Orderon 02-26-2023 Physician Order [id number]#1.00TIFF Normal [facility] CHEMISTRYOrdered By: SYSTEM SYSTEM on 02-25-2023 CRP [Mass/Vol] 6.7 mg/dL High <=1.9mg/dL [facility] Remis ol CRPon 02-25-2023 CRP [Mass/Vol] 6.7 mg/dL High <=1.9 [facility] Comment on above: Performed By: #### 2 893239 ####[facility] [address] [place] [address] Consent for Treatmenton 01-31 Consent for Treatment [id number]#1.00TIFF Normal [facility] ED Note-Physicianon 02-26-20 ED Note-Physician [id number]#1.00TIFF Normal [facility] Lab Miscellaneous-LCon 02-25 Test Code 470094 Invalid Interpretation Code [facility] Comment on above: Performed By: #### 1 [id number] ####[facility] [address] [place] [address] Test Name Interleukin-6 Invalid Interpretation Code [facility] Comment on above: Performed By: #### 1 [id number] ####[facility] [address] [place] [address] Physician Orderon 02-25-2023 Physician Order [id number]#1.00TIFF Normal [facility] RAD - MISCon 02-25-2023 RAD - MISC [id number]#1.00TIFF Normal [facility] Reference Laboratory Testing Ordered By: Elysia Oseguera on 02-25-2023 Sodium [Moles/Vol] 783341 mmol/L Invalid Interpretation Code [facility] Test Name Interleukin-6 Invalid Interpretation Code [facility] Consultation Noteon 02-20-20 Consultation Note [id number]#1.00TIFF Normal [facility] Operative Reporton 3 Operative Report [id number]#1.00TIFF Normal [facility] Consultation Noteon 01-30-20 Consultation Note [id number]#1.00TIFF Normal [facility] RAD - MRI Reporton 3 RAD - MRI Report [id number]#1.00TIFF Normal [facility] XR cerv spine AP/LAT/FLX/EXT on 01-17-2023 XR cerv spine AP/LAT/FLX/EXT [facility] [place] [address] XRay Report Signed Patient: Nehal Baig MR#: [id number] 8 : 1970 Acct:[id number] Age/Sex: 52 / M ADM Date: 01/17/23 Loc: XD Room: Type: [facility] Attending Dr: Siri MALONEY Copies to: HAIDER [...] Khadijah Roach M.D.01/17/2023 4:22 PM Dictation Location: [facility] Transcribed By: [facility] 01/17/23 162 Dictated By: Khadijah Roach MD 01/17/23 162 Signed By: 01/17/23 162 [facility] XR lumbar spine 6V w bending on 01-17-2023 XR lumbar spine 6V w bending [facility] [place] [address] XRay Report Signed Patient: Nehal Baig MR#: [id number] 8 : 1970 Acct:[id number] Age/Sex: 52 / M ADM Date: 01/17/23 Loc: XD Room: Type: [facility] Attending Dr: Siri MALONEY Copies to: HAIDER [...] Christopher Cedeno M.D.01/17/2023 12:51 PM Dictation Location: [place] [address] Transcribed By: [facility] 01/17/23 1251 Dictated By: Christopher Cedeno DO 01/17/23 1246 Signed By: 01/17/23 1251 [facility] RAD - MISCon 01-16-2023 [facility] [id number]#1.00TIFF Normal [facility] [id number]#1.00TIFF Normal [facility] Lab Reportson 01-14-2023 Lab Reports [id number]#1.00TIFF Normal [facility] Lab Reports [id number]#1.00TIFF Normal [facility] Retail - Clinical Noteon Retail - Clinical Note [id number]#1.00TIFF [facility] Ambulatory Visit Summaryon 1 Ambulatory Visit [...] Depression Obesity shoulder pain sleep disorder Normal [facility] XR ankle LT min 3V*on 2022 XR ankle LT min 3V* [facility] [employer] Other XR ankle LT min 3V* [facility] Main [facility] [employer] Other XR ankle LT min 3V* [address] [place] [address] [employer] Other XR ankle LT min 3V* [place] [address] [employer] Other XR ankle LT min 3V* XRay Report Nort [employer] Other XR ankle LT min 3V* Signed [employer] Other XR ankle LT min 3V* Patient: Nehal Baig MR#: [id number] [place] [employer] Other XR ankle LT min 3V* 8 [employer] Other XR ankle LT min 3V* : 1970 Acct:[id number] [employer] Other XR ankle LT min 3V* Age/Sex: 52 / M ADM Date: 12/16/22 [employer] Other XR ankle LT min 3V* Loc: XDUCLY Room: pe: REG CLI [employer] Other XR ankle LT min 3V* Attending Dr: Kelly MALONEY [employer] Other XR ankle LT min 3V* Copies to: KRISTI LarsonC [employer] Other XR ankle LT min 3V* Ordering Provider: HAIDER Rehman [employer] Other XR ankle LT min 3V* Date of Service: 12/16/22 [employer] Other XR ankle LT min 3V* 23342) XR/XR ankle LT min 3V*: LEFT ANKLE PAIN [employer] Other XR ankle LT min 3V* XR ankle LT min 3V* 12/16/2022 10:31 AM [employer] Other XR ankle LT min 3V* SIGNS AND SYMPTOMS: Pain and swelling of the posterior left ankle [employer] Other XR ankle LT min 3V* PROTOCOL: Frontal, lateral, and oblique radiographs of the left ankle [employer] Other XR ankle LT min 3V* COMPARISON: None [employer] Other XR ankle LT min 3V* FINDINGS: [employer] Other XR ankle LT min 3V* The ankle mortise is preserved. There is no evidence of fracture or dislocation. There is Achilles [employer] Other XR ankle LT min 3V* surface calcaneal spurring. There is soft tissue swelling diffusely which is nonspecific. [employer] Other XR ankle LT min 3V* X R/XR ankle LT min 3V* Artillery Other XR ankle LT min 3V* IMPRESSION: [facility] [employer] Other XR ankle LT min 3V* No fracture. [facility] [employer] Other XR ankle LT min 3V* Diffuse soft tissue swelling. Art[employer] Other XR ankle LT min 3V* There is Achilles castano rface calcaneal spurring. Art[employer] Other XR ankle LT min 3V* Impression dictated by: Nehal Horner M.D.12/16/2022 10:42 AM Art[employer] Other XR ankle LT min 3V* Dictation Location: [facility]-13 Artillery Other XR ankle LT min 3V* Transcribed By: MARLO 12/16/22 1042 [employer] Other XR ankle LT min 3V* Dictated By: Nehal Horner II, MD 12/16/22 1042 Art[employer] Other XR ankle LT min 3V* Signed By: Artillery Other XR ankle LT min 3V* 12/16/22 1042 No rt [employer] Other XR ankle LT min 3V* [facility] [place] [address] XRay Report Signed Patient: Nehal Baig MR#: [id number] 8 : 1970 Acct:[id number] Age/Sex: 52 / M ADM Date: 12/16/22 Loc: XDUCLY Room: Type: [facility] Attending Dr: Kelly MALONEY Copies to: HAIDER [...] Nehal Horner M.D.12/16/2022 10:42 AM Dictation Location: [place] [address] Transcribed By: [facility] 12/16/22 1042 Dictated By: Nehal Horner II, MD 12/16/22 1042 Signed By: 12/16/22 1042 [facility] Outside Recordson 10-25-2022 Outside Records [id number]#1[facility] 08-16-2022 Outside Records [id number]#1.[facility] 08-15-2022 Outside Records [id number]#1.00[facility] Coding Summaryon 07-17-2022 Coding Summary HTMLBase 64 MtknukyrXCd8fNj+PGhlYWQ+PE 7JINDxF22ntMGawG6KM2bQBF2G AHTQRMBGCT0ZYN6fcKV0LPtgF4 VybiAv WlsqcNHzVG82EKy0BPX8cOcwUQ imhD7grPEaD0w0MsEfFY64wF10 RJiuOHDnCxQ7RbUnvixqtHWu P7fyGiJyjYSpOlo+PHRhYmxlIH kkSRBbPGmdHWItUnNumUprUO8i Mo4oZCAnBYQycNzixHTrZhTm r6xgQRVtCXvoAL3emJqxN0YeeV X7HSHqp1s9My76fHS+PHRkIHN0 hPnbLOvvg266LgSfd9nfKSK5 wKFqYCnxQAL3S22ls3F9HOSzGL UyKTE0eMO1uQ1qoRddakcpW2Io yLXjGoD3XDM3zQCjtN3teQoa gbhqsS8iEsc+B79DVX1ZWDNRBC 7RPfj6N4VwCgclcGG+ZR88QRHk MC26qGHwlDZxk8ujsGf2KuSh ECSkGMF6dZdkIJcoo5AvMLSqI6 6mwYAfx1N5TXTcuRhjbUKoXcOt qPH9aX4sQIhrzjgbv3psobji Jespq3yhnk65dW10U75cBJvdKK KhFBA6SGPkWPWlmVndgo8rjR2r Ii8+FHcsj7sck1hvvGk7ClAu VUChqfZwtVjsGWX7v7OuNu89T8 ZdlJxxl5ReAkh4sv38qUWab5M9 vIA4YRwtONCeeJ4cQQoiQaX9 FRXvDoCmsH41eWGeVSzlIv7epD zceAlpEB9dUPLpqqlnRXFuyG0l KIUtzANwuOwhCG8nKPRcbwlo u522KlSbSWA8CZQbvRLjI8VtjD 9qDkLjGGFpFUBiO6LwfJWrXIey B051JDfaKkT6PBRusdNpT7Cz PPHbvDczFdO3l0T6Sx7Ip0Tdwb pyTGK5ZQmnQOM1QeM0YjZsCuY4 N9XvGhb7BJOuxPfoNX0wQ8Lc VDTvdzpylmwqwLX7AODgYFEiaH 88fLFwDZaiPf8ho5L5o402RHRd RVUhjY53Uy3rrYstJVFqbKQO kY3omumiy8lqdkzrEpAbUWOmEP p9TXo3GETagZrwHfPxLFJ2RrM8 FDY4nVLasP4qeVeogxatpF2i Oyc+H81wzH3zYGR7CEP3rituDJ BuvcQjDP31FH92U5YrTzopiZIs bGU+KCUxbqRpeYarBJ4rXoIt m2vpp3PrCYdbI7UwMWRoKXynRx x3NVMwWEE0eGS7jZ5pGAEpEBgh h6C5nCT1T7UtfdGwsr9et5lm ZZMtFYcpT83acWTkc2U1GJFqkU X3USZjnKefBpPyiU43Ldz+PGNv nGght4YhNbqjh9nuw2gnfTe3 KoLzPWWpogQxgHkrRNU8i8YmGb 19P15jGMutCORrWPQeALIjIJQt uOoqqf6anJ6iJp6+PGNvbCB3 zJN2yD7zBOZfKvK2LJtbL265Xp FqzQFoCmeqe7xvu3rmiKq0ZmYl SZXkvpShlWxzKDA4m5QrBw28 G15bGOjmSQXuRRTbMIHkDKMvrE pfil5pmB7oQn3+HN6xy7tkww85 fP12iAJ+DMOrPOD2tWszVGxx PZQfqO3sYNtyOvS0NDPyQnLcvI 04gGZqAHgxJc2ggLgzaBhpJW1d KWIanbbcy114EgSvc2cpUTQa oQAnZMdnMRD7P88so5L0AAJjPO CyCXO3gKT1jF4fiGnkfmmzrGFd sReyxhXgoEynLNvzGEvaJ823 IHRvcDsnPlBhdGllbnQgTmFtZT j9E8JkBqq9HXHhqLdcMB0mgTPm KGonBf9wrCykrFemRU2yGOSx dizwt890TqLkl2xmGEAqxPNrZY rjONL1V60wi3O9GRUaFWVzYZN5 cSE3qD1oaCldfuazoMIlmCbw cfUokNpkHRywRNymN387KMLzcU kdEnAxrsVwRGHknRA2DM74GI03 uROzl1F4hFD0U0KwOZXlytal lbovpUS6TYWtXRIjtA39Ks1orH gcXy9mRJKsJGT9NZQpsSDjW8Fl sB0rGdWzYLEuMUXwM4LsfVCk QBzhR593INgeLwU3VCVojnXzM2 JiUJFxjPthRlK0m5F2Pt9JY4I4 YR57YZ31gPVpp7H1mRM3D6Zp ZCVdhynujleliUW7DPYbYNCvgJ 54Gw5eePxiBh5jQVNyZIH4HBYs lKUpB6QriE4pSiSiSSKxKQBp S0VuyIUhNGwaY012RExfRoF4UM AxhiAnZ1NlAGPcgDmnNfM0l3K2 Mh6CNMf8VL13JP68nRCim5G0 uXT7M6UcZVBdvqjplyxicIB4DG SbCLQwaW43Wr0gaLxvRg1hOFMc RTU2IRQleYPxW9YtiI5mPtUf GUUtWUMdB0WmnTYtERdvX148XQ yrLsK8JBZjncHlZ1UzDLWrpOga ZpH5w2M5Dw1SAJNiOC58AUR0 kJH5QJ11KV30E7HuHiitoUCikF U+PHRhYmxlIHdpZHRoPScxMDAl HuSycBnhZB4fSv4vULNxNFTp sWnfcNOyQhSqu4qeNMCqGNjcGB 3sbSmvW9XxgPH9QKLgm3o5Kv84 X35nC1DtyPI+JPRdhBA3hUM7 sI7qPkFkEuZ1VSxrW629GuMghK YsEjhnx1zjf1ljvUy3BeL8NAEg lsNhvBckJEW4w1QgMl04Z45d IHdpZHRoPSIxNSUiIHZhbGlnbj 5tmF1lOx1+NSHbyFH9mHG2eP2s ZjQyGaP9NQhdJ578NbOlgQMn Pbvzx1qde8vqjPd1BmIfPGWmnc BvaRbcTYZ5k7ZwKg70I7GgvUvb r8SfNyq8ev25tAXga0Y3mBA5 H1OkWTRfuhcolCDivMhgGW8kXE EnfnxqTKSnsJ2sPZBjZ7m4IyCd TwH8JVpdB2TtbfF9XDSraDNr PWtaOAH9Q85sk9L7KGHaHLZcYG D4wZT4pP6eiRwpfwwyiVEsqRik euWjkQbnMZybMWyyG428BCKs aMkcOUQrwG4xCOXmlLKnoQogHM 0nVZIozsceWdbJYO6UNvbeQJVK HkVQDFuUFtW7M4UmXfs8GNUl eTyoGH6qeMLnBQvkOw2urQaohH kxOG3jOYXyazalKWClxK9uLVXr aGIhtPvoTZ7eVQRzrgjjy961 SyPoQLN0FMLrxDBtX7UurS6zQv TpFUAaDDMgY1UfmRYzYBokJ379 XPsvBgI9AUSarsIpV7LcFHVj uQsyLqL3s7K0Vt7bTd9qHZ2bTE aoNG90WL15lABtm2L7rRA0N8Bo MFYojtlwsabmgCY4UPLkZVQg wF59wUSaIVrsMp7vp4L8v264US UlNXKpsL39Wi7lmNeaGKCueYVT yM1kmmqbk1swgxziNyRqBXVi LKi8CVp0XKMcsXkoZlFdQCI5Yd Y1IGF9vOBpeX1eaMkkotgfuX5a Oyc+RGbhLMJylqT3G9YpBvc0 EKOafDxiAZ1trXGvWFjdFd7meD ydkRozSV1sAHXtrixwGMTclB6d BWBpkVSdmGlcEA4iSYEybljx j267IlMtWPE1BGVulJWmP7JaiC 7gDuFnSGYtDYObI8EejTWtQTpu H553KHclPnF4CONzcnHmY4At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 Comment: Speci men Type: URINE SPECIMEN [facility] Address: [address] [place] [address] Performed By: #### L [id number] #### [facility] CLIA [id number] [address] [place] [address] [place] [facility] Ketones Ql (U) Trace Abnormal Negative [facility] Comment on above: Order Comment: Speci men Type: URINE SPECIMEN [facility] Address: [address] [place] [address] Performed By: #### L [id number] #### [facility] CLIA [id number] [address] [place] [address] Leukocyte esterase Test strip Ql (U) Negative Normal Negative [facility] Comment on above: Order Comment: Speci men Type: URINE SPECIMEN [facility] Address: [address] [place] [address] Performed By: #### L [id number] #### [facility] CLIA [id number] [address] [place] [address] [place] Nitrite Ql (U) Negative Normal Negative [facility] Comment on above: Order Comment: Speci men Type: URINE SPECIMEN [facility] Address: [address] [place] [address] Performed By: #### L [id number] #### [facility] CLIA [id number] [address] [place] [address] [place] pH (U) 5.5 [pH] Normal 5.0-8.0 [facility] Comment on above: Order Comment: Speci men Type: URINE SPECIMEN [facility] Address: [address] [place] [address] Performed By: #### L [id number] #### [facility] CLIA [id number] [address] [place] [address] [place] Protein (U) [Mass/Vol] 1+ Abnormal Negative [facility] Comment on above: Order Comment: Speci men Type: URINE SPECIMEN [facility] Address: [address] [place] [address] Performed By: #### L [id number] #### [facility] CLIA [id number] [address] [place] [address] [place] RBC LM.HPF (Urine sed) [#/Area] 0-3 /HPF Normal 0-3 /HPF [facility] Comment on above: Order Comment: Speci men Type: URINE SPECIMEN [facility] Address: [address] [place] [address] Performed By: #### L [id number] #### [facility] CLIA [id number] [address] [place] [address] [place] Specific gravity (U) [Rel density] >=1.030 High 1.005-1.03 0 [facility] Comment on above: Order Comment: Speci men Type: URINE SPECIMEN [facility] Address: [address] [place] [address] Performed By: #### L [id number] #### [facility] CLIA [id number] [address] [place] [address] Urobilinogen Ql (U) 0.2 EU/dL Normal 0.2-1.0 EU/dL [facility] Comment on above: Order Comment: Speci men Type: URINE SPECIMEN [facility] Address: [address] [place] [address] Performed By: #### L [id number] #### [facility] CLIA [id number] [address] [place] [address] WBC LM.HPF (Urine sed) [#/Area] 0-5 /HPF Normal 0-5 /HPF [facility] Comment on above: Order Comment: Speci men Type: URINE SPECIMEN [facility] Address: [address] [place] [address] Performed By: #### L [id number] #### [facility] CLIA [id number] [address] [place], [place] [id number] [facility] MRI CSPINE WO CONon 04-23-19 MRI CSPINE [...] KINGSLEY HERRERA Date: 2022-04-23 06:50 Normal [facility] XR FOREIGN BODY EYEon 2022 XR FOREIGN BODY EYE EXAMINATION: XR FORE IGN BODY EYE HISTORY: Foreign body in eye COMPARISON: No relevant comparison available. FINDINGS: ORBITS: Negative for a metallic foreign body. OTHER: Negative. IMPRESSION: 1. No metallic foreign body within the orbits. Electronically authenticated by: JAYY GIVENS Date: 2022-04-20 13:52 Normal [facility] CNOVon 02-15-2022 [facility] -- NEHAL BAIG ([id number]) 1970 M Date Time Provider Department 02/15/22 2:20 PM SALOME AGUILLON [facility] During your visit today, we recorded the following information about you: Pulse Blood pressure Weight 72/minute 147/82 177.8 kg Salome Aguillon APRN.LEODAN 02/15/2022 4:56 PM Signed Salome Aguillon APRN.CNP 02/15/2022 4:56 PM Signed This note was created using NoteWriter. Subjective Nehal Baig is a 51 year old male. CC: routine f/up Last seen: HPI ENDO/WT: -needs f/up endo wt managmeent Dr. 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 Man/Agustina-endo wt management team [phone] Has been off metformin 6 weeks + [...] 2020. This is a workers comp issue-through [facility]/Dr. Cowan. 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 Shoulder replacement surgery left 08/23/24. 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 HM: -declines flu vaccine [...] looks fine. Vitamin D is low-please begin abnu-fqq-gcfeebq vitamin D3 2000 units daily. Urine asymptomatic. Component Latest Ref Rng AND Units 02/10/2022 Color Yellow Yellow Clarity Clear Clear Glucose, Urine Negative Negative Bilirubin, Urine Negative Negative Ketones, Urine Negative Negative Specific [place], Ur 1.005 - 1.030 1.037 (H) Hemoglobin/Blood,Ur [...] other (Epilepsy) (more content not included)... Normal [facility] 25(OH)D3 [facility] 25-hydroxyvitamin D3 [Mass/Vol] 28.2 ng/mL Low 31.0-80.0 [facility] Comment on above: Order Comment: Speci men Type: BLOOD SPECIMENOrdering Facility: [facility] Address: [address] [place] [address] Result Comment: Clas sification of 25 [place] Vitamin D status: Deficiency/Insufficiency: < or = 30 ng/ml. Sufficiency/Optimal Levels: 31-80 ng/mL Toxicity: > 100 ng/mL. Test performed by chemiluminescent immunoassay. Performed By: #### 1 989-3 ####[facility] LABCLIA [id number] [place] [address] [place] CBC panel Auto (Bld)on 02-10 Erythrocyte distribution width (RBC) [Ratio] 13.2 % Normal 11.5-15.0 [facility] Comment on above: Order Comment: Speci men Type: BLOOD SPECIMENOrdering Facility: [facility] Address: [address] [place] [address] Performed By: #### 5 8410-2 ####[facility] LABCLIA [id number] [place] [address] [place] Hematocrit (Bld) [Volume fraction] 41.9 % Normal 39.0-51.0 [facility] Comment on above: Order Comment: Speci men Type: BLOOD SPECIMENOrdering Facility: [facility] Address: [address] [place] [address] Performed By: #### 5 8410-2 ####[facility] LABCLIA [id number] [place] [address] [place] Hemoglobin (Bld) [Mass/Vol] 13.9 g/dL Normal 13.0-17.0 [facility] Comment on above: Order Comment: Speci men Type: BLOOD SPECIMENOrdering Facility: [facility] Address: [address] [place] [address] Performed By: #### 5 8410-2 ####[facility] LABCLIA [id number] [address] [place] MCH (RBC) [Entitic mass] 29.0 pg Normal 26.0-34.0 [facility] Comment on above: Order Comment: Speci men Type: BLOOD SPECIMENOrdering Facility: [facility] Address: [address] [place] [address] Performed By: #### 5 8410-2 ####[facility] LABCLIA [id number] [address] [place] MCHC (RBC) [Mass/Vol] 33.2 g/dL Normal 30.5-36.0 [facility] Comment on above: Order Comment: Speci men Type: BLOOD SPECIMENOrdering Facility: [facility] Address: [address] [place], [place] [address] Performed By: #### 5 8410-2 ####[facility] LABIA [id number] [place] [address] [place] MCV (RBC) [Entitic vol] 87.5 fL Normal 80.0-100.0 [facility] Comment on above: Order Comment: Speci men Type: BLOOD SPECIMENOrdering Facility: [facility] Address: [address] [place], [place] [address] Performed By: #### 5 8410-2 ####[facility] LABCLIA [id number] [address] [place] Nucleated RBC (Bld) [#/Vol] 10*3/uL Normal <0.01 [facility] Comment on above: Order Comment: Speci men Type: BLOOD SPECIMENOrdering Facility: [facility] Address: [address] [place], [place] [address] Performed By: #### 5 8410-2 ####[facility] LABIA [id number] [place] [address] [place] Platelet mean volume (Bld) [Entitic vol] 10.6 fL Normal 9.0-12.7 [facility] Comment on above: Order Comment: Speci men Type: BLOOD SPECIMENOrdering Facility: [facility] Address: [address] [place], [place] [address] Performed By: #### 5 8410-2 ####[facility] LABIA [id number] [place] [address] [place] Platelets (Bld) [#/Vol] 198 10*3/uL Normal 150-400 [facility] Comment on above: Order Comment: Speci men Type: BLOOD SPECIMENOrdering Facility: [facility] Address: [address] [place], [place] [address] Performed By: #### 5 8410-2 ####[facility] LABIA [id number] [place] [address] [place] RBC (Bld) [#/Vol] 4.79 10*6/uL Normal 4.20-6.00 [facility] Comment on above: Order Comment: Speci men Type: BLOOD SPECIMENOrdering Facility: [facility] Address: [address] [place], [place] [address] Performed By: #### 5 8410-2 ####[facility] LABIA [id number] [place] [address] [place] WBC (Bld) [#/Vol] 6.46 10*3/uL Normal 3.70-11.00 [facility] Comment on above: Order Comment: Speci men Type: BLOOD SPECIMENOrdering Facility: [facility] Address: [address] [place], [place] [address] Performed By: #### 5 8410-2 ####[facility] LABCLIA [id number] [address] Comprehensive metabolic 2000 panelon 02-10-2022 Albumin [Mass/Vol] 4.5 g/dL Normal 3.9-4.9 [facility] Comment on above: Order Comment: Speci men Type: BLOOD SPECIMENOrdering Facility: [facility] Address: [address] [place] [address] Performed By: #### 3 016-3, 93897-1 ####[facility] LABCLIA [id number] [place] [address] [place]#### 49199-4 ####[facility] LABCLIA [id number] [address] [place] LABORATORYCLIA [id number] [place] [address] [place] ALP [Catalytic activity/Vol] 85 U/L Normal 38-113 [facility] Comment on above: Order Comment: Speci men Type: BLOOD SPECIMENOrdering Facility: [facility] Address: [address] [place] [address] Performed By: #### 3 016-3, 71371-0 ####[facility] LABCLIA [id number] [place] [address] [place]#### 42558-3 ####[facility] LABCLIA [id number] [place] [id number] [facility] [place] LABORATORYCLIA [id number] [place] [address] [place] ALT [Catalytic activity/Vol] 34 U/L Normal 10-54 [facility] Comment on above: Order Comment: Speci men Type: BLOOD SPECIMENOrdering Facility: [facility] Address: [address] Performed By: #### 3 016-3, 76538-8 ####[facility] LABCLIA [id number] [place] [address] [place]#### 40981-7 ####[facility] LABCLIA [id number] [address] OF [facility] LABORATORYCLIA [id number] [place] [address] [place] Anion gap [Moles/Vol] 10 mmol/L Normal 9-18 [facility] Comment on above: Order Comment: Speci men Type: BLOOD SPECIMENOrdering Facility: [facility] Address: [address] [place] [address] Performed By: #### 3 016-3, ####[facility] [facility] LAB[facility] [id number] [place] [address] [place]#### 15077-0 ####[facility] LABCLIA [id number] [address] STATES OF [facility] LABORATORYIA [id number] [place] [address] [place] AST [Catalytic activity/Vol] 25 U/L Normal 14-40 [facility] Comment on above: Order Comment: Speci men Type: BLOOD SPECIMENOrdering Facility: [facility] Address: [address] [place], [place] [address] Performed By: #### 3 016-3, 45164-9 ####[facility] LABCLIA [id number] [place] [address] [place]#### 77353-3 ####[facility] LABCLIA [id number] [place] [id number] [place] [facility] LABORATORYCLIA [id number] [place] [address] [place] Bilirubin [Mass/Vol] 0.4 mg/dL Normal 0.2-1.3 [facility] Comment on above: Order Comment: Speci men Type: BLOOD SPECIMENOrdering Facility: [facility] Address: [address] [place] [address] Performed By: #### 3 016-3, 15094-5 ####[facility] LABCLIA [id number] [place] [address] [place]#### 85993-4 ####[facility]CLIA [id number] [facility] [address] [place] LABORATORYCLIA [id number] [place] [address] [place] Calcium [Mass/Vol] 9.3 mg/dL Normal 8.5-10.2 [facility] Comment on above: Order Comment: Speci men Type: BLOOD SPECIMENOrdering Facility: [facility] Address: [address] [place] [address] Performed By: #### 3 016-3, ####[facility] LABCLIA [id number] [place] [address] [place]#### 26778-3 ####[facility] LABCLIA [id number] [address] STATES OF [facility] [place] LABORATORYCLIA [id number] [place] [address] [place] Chloride [Moles/Vol] 103 mmol/L Normal 97-105 [facility] Comment on above: Order Comment: Speci men Type: BLOOD SPECIMENOrdering Facility: [facility] Address: [address] [place] [address] Performed By: #### 3 016-3, 00971-6 ####[facility] LABCLIA [id number] [place] [address] [place]#### 12554-3 ####[facility] LABCLIA [id number] [address] [facility] LABORATORYCLIA [id number] [place] [address] [place] CO2 [Moles/Vol] 26 mmol/L Normal 22-30 [facility] Comment on above: Order Comment: Speci men Type: BLOOD SPECIMENOrdering Facility: [facility] Address: [address] [place] [address] Performed By: #### 3 016-3, 72935-4 ####[facility] LABCLIA [id number] [place] [address] [place]#### 66326-6 ####[facility] LABCLIA [id number] [address] STATES OF [facility] LABORATORYCLIA [id number] [place] [address] [place] Creatinine [Mass/Vol] 0.90 mg/dL Normal 0.73-1.22 [facility] Comment on above: Order Comment: Speci men Type: BLOOD SPECIMENOrdering Facility: [facility] Address: [address] [place] [address] Performed By: #### 3 016-3, 67149-0 ####[facility] LABCLIA [id number] [place] [address] [place]#### 04486-3 ####[facility] LABCLIA [id number] [address] STATES OF [facility] LABORATORYCLIA [id number] [address] [place] ESTIMATED GLOMERULAR FILTRATION RATE 105 mL/min/1.73m??? Normal >=60 [facility] Comment on above: Order Comment: Speci men Type: BLOOD SPECIMENOrdering Facility: [facility] Address: [address] [place] [address] Result Comment: Halle mated Glomerular Filtration Rate [...] actual GFR. Performed By: #### 3 016-3, 24590-1 ####[facility] LABCLIA [id number] [address] [address] [facility]#### 90179-4 ####[facility] LABCLIA [id number] [address] STATES [facility] LABORATORYCLIA [id number] [place] [address] [place] STATES OF [facility] Glucose [Mass/Vol] 115 mg/dL High 74-99 [facility] Comment on above: Order Comment: Speci men Type: BLOOD SPECIMENOrdering Facility: [facility] Address: [address] [place] [place] [address] Result Comment: The [place] Diabetes Association (ADA) provides guidance for cutoff [...] Standards of Medical Care in Diabetes 2016, [place] Diabetes Association. Diabetes Care. 2016.39(Suppl 1). Performed By: #### 3 016-3, 82331-3 ####[facility] LABCLIA [id number] [place] [address] [place]#### 43594-2 ####[facility] LABCLIA [id number] [address] LABORATORYCLIA [id number] [place] [address] [place] Potassium [Moles/Vol] 4.2 mmol/L Normal 3.7-5.1 [facility] Comment on above: Order Comment: Speci men Type: BLOOD SPECIMENOrdering Facility: [facility] Address: [address] [place] [address] Performed By: #### 3 016-3, 51938-9 ####[facility] LABCLIA [id number] [place] [address] [place]#### 65787-4 ####[facility] LABCLIA [id number] [address] LABORATORYCLIA [id number] [place] [address] [place] Protein [Mass/Vol] 6.9 g/dL Normal 6.3-8.0 [facility] Comment on above: Order Comment: Speci men Type: BLOOD SPECIMENOrdering Facility: [facility] Address: [address] [place] [address] Performed By: #### 3 016-3, 33959-5 ####[facility] LABCLIA [id number] [place] [address] [place]#### 55277-2 ####[facility] LABCLIA [id number] [address] STATES OF [facility] LABORATORYCLIA [id number] [place] [address] [place] Sodium [Moles/Vol] 139 mmol/L Normal 136-144 [facility] Comment on above: Order Comment: Speci men Type: BLOOD SPECIMENOrdering Facility: [facility] Address: [address] [place], [place] [address] Performed By: #### 3 016-3, 88671-9 ####[facility] LABCLIA [id number] [address] [place]#### 69747-6 ####[facility] LABCLIA [id number] [address] LABORATORYCLIA [id number] [address] STATES [facility] Urea nitrogen [Mass/Vol] 15 mg/dL Normal 9-24 [facility] Comment on above: Order Comment: Speci men Type: BLOOD SPECIMENOrdering Facility: [facility] Address: [address] [place] [address] Performed By: #### 3 016-3, 12731-5 ####[facility] LABCLIA [id number] [address] [place]#### 19390-6 ####[facility] LABCLIA [id number] [address] LABORATORYCLIA [id number] [address] STATES [facility] HbA1c (Bld)on 02-10-2022 Average glucose Estimated from glycated hemoglobin (Bld) [Mass/Vol] 105 mg/dL Normal [facility] Comment on above: Order Comment: Speci men Type: BLOOD SPECIMENOrdering Facility: [facility] Address: [address] [place] [address] Result Comment: eAG: (Estimated average glucose) is a calculated value from HgbA1c and is administrative representative of the average blood glucose level in the last 2-3 month period. Performed By: #### 5 5454-3 ####[facility] LABCLIA [id number] [address] [place] HbA1c (Bld) [Mass fraction] 5.3 % Normal 4.3-5.6 [facility] Comment on above: Order Comment: Tessa flores Type: BLOOD SPECIMENOrdering Facility: [facility] Address: [address] [place] [address] Result Comment: [place] Diabetes Association guidelines indicate that patients with HgbA1c in the range 5.7-6.4% are at increased risk for development of diabetes, and intervention by lifestyle modification may be beneficial. HgbA1c greater or equal to 6.5% is considered diagnostic of diabetes. Performed By: #### 5 5454-3 ####[facility] LABCLIA [id number] [address] Lipid 1996 panelon 2 Cholesterol [Mass/Vol] 179 mg/dL Normal <200 [facility] Comment on above: Order Comment: Tessa flores Type: BLOOD SPECIMENOrdering Facility: [facility] Address: [address] [place] [address] Result Comment: <200 mg/dL, Desirable 200-239 mg/dL, Borderline high >239 mg/dL, High Performed By: #### 3 016-3, 69047-8 ####[facility] LABCLIA [id number] [address] OF [facility]#### 83328-5 ####[facility] LABCLIA [id number] [address] STATES [facility] LABORATORYCLIA [id number] [address] STATES OF [facility] Cholesterol in HDL [Mass/Vol] 36 mg/dL Low >39 [facility] Comment on above: Order Comment: Tessa sandra Type: BLOOD SPECIMENOrdering Facility: [facility] Address: [address] [place] [address] Result Comment: 40-5 9 mg/dL, Acceptable >59 mg/dL, High: Negative risk factor for coronary heart disease <40 mg/dL, Low: Positive risk factor for coronary heart disease Performed By: #### 3 016-3, 98045-5 ####[facility] LABCLIA [id number] [address] [place]#### 39142-8 ####[facility] LABCLIA [id number] [place] [address] [place] [facility]AM[facility] LABORATORYCLIA [id number] [place] [address] [place] Cholesterol in LDL [Mass/Vol] 104 mg/dL High <100 [facility] Comment on above: Order Comment: Speci men Type: BLOOD SPECIMENOrdering Facility: [facility] Address: [address] [place] [address] Result Comment: <100 mg/dL, Optimal 100-129 mg/dL, Near optimal/above optimal 130-159 mg/dL, Borderline high 160-189 mg/dL, High >189 mg/dL, Very high Secondary prevention optimal LDL Cholesterol levels are recommended to be < 70 mg/dL Performed By: #### 3 016-3, 28728-6 ####[facility] LABCLIA [id number] [address] STATES [place]#### 46856-0 ####[facility] LABCLIA [id number] [address] STATES OF [facility] LABORATORYCLIA [id number] [address] [place] Cholesterol in LDL/Cholesterol in HDL [Mass ratio] 2.89 {ratio} High <2.54 [facility] Comment on above: Order Comment: Speci men Type: BLOOD SPECIMENOrdering Facility: [facility] Address: [address] [place] [address] Result Comment: Doris tucker: 1. National Cholesterol Education Program ATP III Guideline At-A-Glance Quick Desk Reference: National Heart, Lung, and Blood [place]. National Institutes of Health. 2001: NIH Publication No. 01-3305. 2. An International Atherosclerosis Society position paper: global recommendations for the management of dyslipidemia: executive summary, Atherosclerosis. 2014: 232(2):410-413. Performed By: #### 3 016-3, ####[facility] LABCLIA [id number] [address]#### 67061-8 ####[facility] LABCLIA [id number] [address] [place] LABORATORYCLIA [id number] [place] [address] [facility] Cholesterol in VLDL [Mass/Vol] 39 mg/dL High <30 [facility] Comment on above: Order Comment: Speci men Type: BLOOD SPECIMENOrdering Facility: [facility] Address: [address] [place] [address] Performed By: #### 3 016-3, ####[facility] LABCLIA [id number] [address]#### 59831-9 ####[facility] LABCLIA [id number] [address] LABORATORYCLIA [id number] [address] [place] Cholesterol non HDL [Mass/Vol] 143 mg/dL High <130 [facility] Comment on above: Order Comment: Speci men Type: BLOOD SPECIMENOrdering Facility: [facility] Address: [address] [place] [address] Result Comment: <130 mg/dL, Optimal 130-159 mg/dL, Near optimal/above optimal 160-189 mg/dL, Borderline high 190-219 mg/dL, High >219 mg/dL, Very high Secondary prevention optimal non HDL Cholesterol levels are recommended to be <100 mg/dL Performed By: #### 3 016-3, 25080-6 ####[facility] LABCLIA [id number] [address] [place]#### 45251-0 ####[facility] LABCLIA [id number] [address] LABORATORYCLIA [id number] [address] Cholesterol.total/Ch olesterol in HDL [Mass ratio] 4.97 {ratio} Normal <5.10 [facility] Comment on above: Order Comment: Speci men Type: BLOOD SPECIMENOrdering Facility: [facility] Address: [address] [place] [address] Performed By: #### 3 016-3, 53643-0 ####[facility] LABCLIA [id number] [place] [address] [place]#### 26117-1 ####[facility] LABCLIA [id number] [address] LABORATORYIA [id number] [address] [place] FASTING TIME 12 hrs Normal [facility] Comment on above: Order Comment: Speci men Type: BLOOD SPECIMENOrdering Facility: [facility] Address: [address] [place] [address] Performed By: #### 3 016-3, 96415-3 ####[facility] LABCLIA [id number] [address] [place]#### 54386-2 ####[facility] LABCLIA [id number] [address] STATES OF [facility] LABORATORYIA [id number] [address] [place] Triglyceride [Mass/Vol] 197 mg/dL High <150 [facility] Comment on above: Order Comment: Speci men Type: BLOOD SPECIMENOrdering Facility: [facility] Address: [address] [place] [address] Result Comment: <150 mg/dL, Normal 150-199 mg/dL, Borderline high 200-499 mg/dL, High >499 mg/dL, Very high Performed By: #### 3 016-3, 73718-8 ####[facility] LABCLIA [id number] [address] [place]#### 15505-1 ####[facility] LABCLIA [id number] [address] LABORATORYCLIA [id number] [address] [place] PSA/PROSTSPECAG SCRNon 02-10 Prostate specific Ag [Mass/Vol] 0.42 ng/mL Normal <2.60 [facility] Comment on above: Order Comment: Speci men Type: BLOOD SPECIMENOrdering Facility: [facility] Address: [address] [place] [address] Result Comment: Tota l PSA test methodology used is the Electrochemiluminescence Immunoassay by [employer] Total PSA values by differing methodologies cannot be interchanged. Performed By: #### P SAS1 ####[facility] LABIA [id number] [address] OF [facility] TSH SerPl-aCncon 02-10-2022 TSH Qn 1.220 m[IU]/L Normal 0.270-4.20 0 [facility] Comment on above: Order Comment: Speci men Type: BLOOD SPECIMENOrdering Facility: [facility] Address: [address] [place], [place] [address] Performed By: #### 3 016-3, 92236-1 ####[facility] LABCLIA [id number] [address] [place]#### 07754-3 ####[facility] LABCLIA [id number] [address] [place] LABORATORYCLIA [id number] [place] [address] [place] URINALYSIS, REFLEX MICROSCOP ICon 02-10-2022 Bilirubin Ql (U) Negative Normal Negative [facility] Comment on above: Order Comment: Speci men Type: URINE SPECIMENOrdering Facility: [facility] Address: [address] [place] [address] Performed By: #### L [id number] ####[facility] LABCLIA [id number] [place] [address] [place] CALCIUM OXALATE CRYSTALS (UA) Few Abnormal None Seen [facility] Comment on above: Order Comment: Speci men Type: URINE SPECIMENOrdering Facility: [facility] Address: [address] [place] [address] Performed By: #### L [id number] ####[facility] LABCLIA [id number] [place] [address] [place] Clarity (Unsp spec) Clear Normal Clear [facility] Comment on above: Order Comment: Speci men Type: URINE SPECIMENOrdering Facility: [facility] Address: [address] [place] [address] Performed By: #### L [id number] ####[facility] LABCLIA [id number] [place] [address] [place] Color (U) Yellow Normal Yellow [facility] Comment on above: Order Comment: Speci men Type: URINE SPECIMENOrdering Facility: [facility] Address: [address] [place] [address] Performed By: #### L [id number] ####[facility] LABCLIA [id number] [place] [address] [place] Epithelial cells LM.HPF (Urine sed) [#/Area] Few Normal [facility] Comment on above: Order Comment: Speci men Type: URINE SPECIMENOrdering Facility: [facility] Address: [address] [place] [address] Result Comment: Few Performed By: #### L [id number] ####[facility] LABCLIA [id number] [place] [address] [place] Glucose Test strip (U) [Mass/Vol] Negative Normal Negative [facility] Comment on above: Order Comment: Speci men Type: URINE SPECIMENOrdering Facility: [facility] Address: [address] [place] [address] Performed By: #### L [id number] ####[facility] LABCLIA [id number] [place] [address] [place] Hemoglobin Ql (U)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 [id number] [place] [id number] [place] Urea nitrogen [Mass/Vol] 18 mg/dL Normal 9-24 [facility] Comment on above: Order Comment: Speci men Type: BLOOD SPECIMENOrdering Facility: [facility] Address: [address] [place] [address] Performed By: #### L IPB, 86841-0 ####[facility]ITAL[facility] LABCLIA [id number] [place] [address] [place] HGB A1Con 07-29-2021 Average glucose Estimated from glycated hemoglobin (Bld) [Mass/Vol] 117 mg/dL Normal [facility] Comment on above: Order Comment: Speci men Type: BLOOD SPECIMENOrdering Facility: [facility] Address: [address] [place] [address] Result Comment: eAG: (Estimated average glucose) is a calculated value from HgbA1c and is administrative representative of the average blood glucose level in the last 2-3 month period. Performed By: #### H BA1C ####[facility] LABCLIA [id number] [place] [id number] [place] HbA1c (Bld) [Mass fraction] 5.7 % High 4.3-5.6 [facility] Comment on above: Order Comment: Speci men Type: BLOOD SPECIMENOrdering Facility: [facility] Address: [address] [place] [address] Result Comment: [place] Diabetes Association guidelines indicate that patients with HgbA1c in the range 5.7-6.4% are at increased risk for development of diabetes, and intervention by lifestyle modification may be beneficial. HgbA1c greater or equal to 6.5% is considered diagnostic of diabetes. Performed By: #### H BA1C ####[facility] LABCLIA [id number] [place] [id number] [place] LIPID PANEL BASICon 07-30-19 22 Cholesterol [Mass/Vol] 240 mg/dL High <200 [facility] Comment on above: Order Comment: Speci men Type: BLOOD SPECIMENOrdering Facility: [facility] Address: [address] [place] [address] Result Comment: <200 mg/dL, Desirable 200-239 mg/dL, Borderline high >239 mg/dL, High Performed By: #### L FILIPE, 84077-3 ####[facility] LABCLIA [id number] [address] [place] Cholesterol in HDL [Mass/Vol] 37 mg/dL Low >39 [facility] Comment on above: Order Comment: Speci men Type: BLOOD SPECIMENOrdering Facility: [facility] Address: [address] [place] [address] Result Comment: 40-5 9 mg/dL, Acceptable >59 mg/dL, High: Negative risk factor for coronary heart disease <40 mg/dL, Low: Positive risk factor for coronary heart disease Performed By: #### L KIERRAB, 04033-0 ####[facility] LABCLIA [id number] [place] [address] [place] [facility] Cholesterol in LDL [Mass/Vol] 175 mg/dL High <100 [facility] Comment on above: Order Comment: Speci men Type: BLOOD SPECIMENOrdering Facility: [facility] Address: [address] [place] [address] Result Comment: <100 mg/dL, Optimal 100-129 mg/dL, Near optimal/above optimal 130-159 mg/dL, Borderline high 160-189 mg/dL, High >189 mg/dL, Very high Secondary prevention optimal LDL Cholesterol levels are recommended to be < 70 mg/dL Performed By: #### L FILIPE, 51534-7 ####[facility] LABCLIA [id number] [address] Cholesterol in LDL/Cholesterol in HDL [Mass ratio] 4.73 {ratio} High <2.54 [facility] Comment on above: Order Comment: Speci men Type: BLOOD SPECIMENOrdering Facility: [facility] Address: [address] [place] [address] Result Comment: Refe rence: 1. National Cholesterol Education Program ATP III Guideline At-A-Glance Quick Desk Reference: National Heart, Lung, and Blood [place]. National Institutes of Health. 2001: NIH Publication No. 01-3305. 2. An International Atherosclerosis Society position paper: global recommendations for the management of dyslipidemia: executive summary, Atherosclerosis. 2014: 232(2):410-413. Performed By: #### L FILIPE, 23697-8 ####[facility] LABCLIA [id number] [place] [id number] [place] [facility] Cholesterol in VLDL [Mass/Vol] 28 mg/dL Normal <30 [facility] Comment on above: Order Comment: Speci men Type: BLOOD SPECIMENOrdering Facility: [facility] Address: [address] [place] [address] Performed By: #### L KIERRAB, 71183-4 ####[facility] LABCLIA [id number] [place] [address] [place] Cholesterol non HDL [Mass/Vol] 203 mg/dL High <130 [facility] Comment on above: Order Comment: Speci men Type: BLOOD SPECIMENOrdering Facility: [facility] Address: [address] [place] [address] Result Comment: <130 mg/dL, Optimal 130-159 mg/dL, Near optimal/above optimal 160-189 mg/dL, Borderline high 190-219 mg/dL, High >219 mg/dL, Very high Secondary prevention optimal non HDL Cholesterol levels are recommended to be <100 mg/dL Performed By: #### L FILIPE, 68134-8 ####[facility] LABCLIA [id number] [address] Cholesterol.total/Ch olesterol in HDL [Mass ratio] 6.49 {ratio} High <5.10 [facility] Comment on above: Order Comment: Speci men Type: BLOOD SPECIMENOrdering Facility: [facility] Address: [address] [place] [address] Performed By: #### Natalie DENT, 42522-9 ####[facility] LABCLIA [id number] [address] OF [facility] FASTING TIME 12. hrs Normal [facility] Comment on above: Order Comment: Speci men Type: BLOOD SPECIMENOrdering Facility: [facility] Address: [address] [place] [address] Performed By: #### Natalie DENT, 40761-9 ####[facility]OSPITALRahe[facility] LABCLIA [id number] [address] Triglyceride [Mass/Vol] 140 mg/dL Normal <150 [facility] Comment on above: Order Comment: Speci men Type: BLOOD SPECIMENOrdering Facility: [facility] Address: [address] [place] [address] Result Comment: <150 mg/dL, Normal 150-199 mg/dL, Borderline high 200-499 mg/dL, High >499 mg/dL, Very high Performed By: #### L KIERRAB, 39291-2 ####[facility] LABCLIA [id number] [place] [address] [place] PSA/PROSTSPECAG SCRNon 07-29 Prostate specific Ag [Mass/Vol] 0.41 ng/mL Normal <2.60 [facility] Comment on above: Order Comment: Speci men Type: BLOOD SPECIMENOrdering Facility: [facility] Address: [address] [place] [address] Result Comment: Tota l PSA test methodology used is the Electrochemiluminescence Immunoassay by [employer] Total PSA values by differing methodologies cannot be interchanged. Performed By: #### P SAS1 ####[facility] LABCLIA [id number] [place] [address] [place] TSH SerPl-aCncon 07-29-2021 TSH Qn 4.060 m[IU]/L Normal 0.270-4.20 0 [facility] Comment on above: Order Comment: Speci men Type: BLOOD SPECIMENOrdering Facility: [facility] Address: [address] [place] [address] Performed By: #### 3 016-3 ####[facility] LABCLIA [id number] [place] [address] [place] URINALYSIS, REFLEX MICROSCOP ICon 07-29-2021 Bilirubin Ql (U) Negative Normal Negative [facility] Comment on above: Order Comment: Speci men Type: URINE SPECIMEN [facility] Address: [address] [place] [address] Performed By: #### L [id number] #### [facility] HOSPITALRahe[facility] LAB CLIA [id number] [address] [place] [address] [place] Clarity (Unsp spec) Clear Normal Clear [facility] Comment on above: Order Comment: Speci men Type: URINE SPECIMEN [facility] Address: [address] [place] [address] Performed By: #### L [id number] #### [facility] LAB CLIA [id number] [address] [place] [address] [place] [facility] Color (U) Yellow Normal Yellow [facility] Comment on above: Order Comment: Speci men Type: URINE SPECIMEN [facility] Address: [address] [place] [address] Performed By: #### L [id number] #### [facility] CLIA [id number] [address] [place] [address] [place] Glucose Test strip (U) [Mass/Vol] Negative Normal Negative [facility] Comment on above: Order Comment: Speci men Type: URINE SPECIMEN [facility] Address: [address] [place] [address] Performed By: #### L [id number] #### [facility] CLIA [id number] [address] [place] [address] [place] Hemoglobin Ql (U) Negative Normal Negative [facility] Comment on above: Order Comment: Speci men Type: URINE SPECIMEN [facility] Address: [address] [place] [address] Performed By: #### L [id number] #### [facility] CLIA [id number] [address] [place] [address] [place] Ketones Ql (U) Negative Normal Negative [facility] Comment on above: Order Comment: Speci men Type: URINE SPECIMEN [facility] Address: [address] [place] [address] Performed By: #### L [id number] #### [facility] CLIA [id number] [address] [place] [address] [place] Leukocyte esterase Test strip Ql (U) Negative Normal Negative [facility] Comment on above: Order Comment: Speci men Type: URINE SPECIMEN [facility] Address: [address] [place] [address] Performed By: #### L [id number] #### [facility] CLIA [id number] [address] [place] [address] [place] Nitrite Ql (U) Negative Normal Negative [facility] Comment on above: Order Comment: Speci men Type: URINE SPECIMEN [facility] Address: [address] [place] [address] Performed By: #### L [id number] #### [facility] CLIA [id number] [address] [place] [address] [place] pH (U) 5.5 [pH] Normal 5.0-8.0 [facility] Comment on above: Order Comment: Speci men Type: URINE SPECIMEN [facility] Address: [address] [place] [address] Performed By: #### L [id number] #### [facility] CLIA [id number] [address] [place] [address] [place] Protein (U) [Mass/Vol] Negative Normal Negative [facility] Comment on above: Order Comment: Speci men Type: URINE SPECIMEN [facility] Address: [address] [place] [address] Performed By: #### L [id number] #### [facility] CLIA [id number] [address] [place] [address] [place] Specific gravity (U) [Rel density] 1.025 Normal 1.005-1.03 0 [facility] Comment on above: Order Comment: Speci men Type: URINE SPECIMEN [facility] Address: [address] [place] [address] Performed By: #### L [id number] #### [facility] CLIA [id number] [address] [place] [address] [place] Urobilinogen Ql (U) 0.2 EU/dL Normal 0.2-1.0 EU/dL [facility] Comment on above: Order Comment: Speci men Type: URINE SPECIMEN [facility] Address: [address] [place] [address] Performed By: #### L [id number] #### [facility] CLIA [id number] [facility] [place] [address] [place] VITAMIN D 25 HYDROXYon 07-29 25-hydroxyvitamin D3 [Mass/Vol] 29.1 ng/mL Low 31.0-80.0 [facility] Comment on above: Order Comment: Speci men Type: BLOOD SPECIMENOrdering Facility: [facility] Address: [address] [place] [address] Result Comment: Clas sification of 25 [place] Vitamin D status: Deficiency/Insufficiency: < or = 30 ng/ml. Sufficiency/Optimal Levels: 31-80 ng/mL Toxicity: > 100 ng/mL. Test performed by chemiluminescent immunoassay. Performed By: #### V ITD ####[facility] LABCLIA [id number] [address] [place] HISTORY PHYSICALon HISTORY PHYSICAL HNO ID: [id number] Author: Prisca Van PA-C Service: ? Author Type: Physician Network Management Specialist Type: HANDP Filed: 07/26/2021 1:52 PM Note Text: [facility]ULT [facility] This is a virtual visit. It required patient-provider interaction for the medical decision making as documented below. Patient has been identified by name and date of : Yes Reason for call: PACC visit Accompanied by: Self Patient name: Nehal Baig Scheduled Surgery: colonoscopy 07/31/2021 at [place] CHIEF COMPLAINT: Patient presents with: Outpatient Colonoscopy [...] fevers. 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 [...] carotid puls (more content not included)... Normal [facility] CNOVon 07-25-2021 CNOV Office Visit ([facility] ) -- NEHAL BAIG ([id number]) 1970 M Date Time Provider Department 07/25/21 9:20 AM SALOME AGUILLON [facility] During your visit today, we recorded the [...] further at follow-up Salome Aguillon APRN.LEODAN Aguillon APRN.[facility] 07/25/2021 9:43 AM Signed Bowel Preparation Instructions for: Golytely, Nulytely, Trilyte or Coly (more content not included)... Normal [facility] Ramez 07-25-2021 LEODANN Telephone ([facility]) -- ESSENCENEHAL GAN ([id number]) 1970 M Date Time Provider Department 07/25/21 SALOME AGUILLON [facility] During your visit today, we recorded the following information about you: Beatriz Cowan 07/25/2021 11:22 AM Signed [facility] states the Golytely is on backorder. They have the Newlytely in stock. Is it OK to substitute? Please advise. [phone]. 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 Additional eGFR calculator available at: http://www.[employer].Synchronica/multiple_crcl_2012.htm Performed By: #### C BC, BMPX ####[facility] [address] [place], [place] [phone] Director: Nate Stafford MD Anion gap [Moles/Vol] 11 mmol/L Normal 9-17 [facility] Comment on above: Performed By: #### C BC, BMPX ####[facility] [address] [place], [place] [phone] Director: Nate Stafford MD Calcium [Mass/Vol] 8.5 mg/dL Low 8.6-10.4 [facility] Comment on above: Performed By: #### C BC, BMPX ####[address] [address]([facility])[phone] Director: Nate Stafford MD Chloride [Moles/Vol] 101 mmol/L Normal 98-107 [facility] Comment on above: Performed By: #### C BC, BMPX ####[facility] [address] [place] [address] Lab Director: Nate Stafford MD CO2 [Moles/Vol] 23 mmol/L Normal 20-31 [facility] Comment on above: Performed By: #### C BC, BMPX ####[facility] [address] [place], [place] [phone] Director: Nate Stafford MD Creatinine [Mass/Vol] 0.62 mg/dL Low 0.70-1.20 [facility] Comment on above: Performed By: #### C BC, BMPX ####[facility] [address] [place], [place] [phone] Director: Nate Stafford MD GFR, Amer >60 Normal >[address] [facility] Comment on above: Performed By: #### C BC, BMPX ####[facility] [address] [place] [address] Lab Director: Nate Stafford MD GFR,non Amer >60 Normal >60 [facility] Comment on above: Performed By: #### C BC, BMPX ####[facility] [address] [place], [place] [phone] Director: Nate Stafford MD Glucose [Mass/Vol] 120 mg/dL High 70-99 [facility] Comment on above: Performed By: #### C BC, BMPX ####[facility] [address] [place], [place] [phone] Director: Nate Stafford MD Potassium [Moles/Vol] 4.3 mmol/L Normal 3.7-5.3 [facility] Comment on above: Performed By: #### C BC, BMPX ####[facility] [address] [place], [place] [phone] Director: Nate Stafford MD Sodium [Moles/Vol] 135 mmol/L Normal 135-144 [facility] Comment on above: Performed By: #### C BC, BMPX ####[facility] [address] [place], [place] [phone] Director: Nate Stafford MD Urea nitrogen [Mass/Vol] 14 mg/dL Normal 6-20 [facility] Comment on above: Performed By: #### C BC, BMPX ####[facility] [address] [place], [place] [phone] Director: Nate Stafford MD BUN/CRE Ratio NOT REPORTED Normal 9-20 [facility] Comment on above: Performed By: #### C BC, BMPX ####[facility] [address] [place], [place] [phone] Director: Nate Stafford MD Staging: NOT REPORTED Normal [facility] Comment on above: Performed By: #### C BC, BMPX ####[facility] [address] [place] [address] lab Director: Nate Stafford MD Basic Metabolic Panel w/ Ref johnny to MGOrdered By: Halina Pathak on 08-02-2020 Anion gap [Moles/Vol] 11 mmol/L 9 - 17 mmol/L [employer] Phone: Calcium [Mass/Vol] 8.5 mg/dL Low 8.6 - 10. 4 mg/dL [employer] Phone: Chloride [Moles/Vol] 101 mmol/L 98 - 10 7 mmol/L [employer] Phone: CO2 [Moles/Vol] 23 mmol/L 20 - 31 mmol/L [employer] Phone: Creatinine [Mass/Vol] 0.62 mg/dL Low 0.70 - 1.20 mg/dL [employer] Phone: GFR >60 >60 mL/min [employer] Phone: GFR Non- >60 >60 mL/min [employer] Phone: GFR/1.73 sq M.predicted MDRD (S/P/Bld) [Vol rate/Area] [employer] Phone: Comment on above: Average GFR for 40-4 9 years old: 99 mL/min/1.73sq m Chronic Kidney Disease: <60 mL/min/1.73sq m Kidney failure: <15 mL/min/1.73sq m eGFR calculated using average adult body mass. Additional eGFR calculator available at: http://www.[employer].Synchronica/multiple_crcl_2012.htm GFR/1.73 sq M.predicted MDRD (S/P/Bld) [Vol rate/Area] NOT REPORTED [employer] Phone: Glucose [Mass/Vol] 120 mg/dL High 70 - 99 mg/dL [employer] Phone: Interpretation and review of laboratory results Abnormal [employer] Phone: Potassium [Moles/Vol] 4.3 mmol/L 3.7 - 5.3 mmol/L [employer] Phone: Sodium [Moles/Vol] 135 mmol/L 135 - 144 mmol/L [employer] Phone: Urea nitrogen (BldV) [Mass/Vol] 14 mg/dL 6 - 20 mg/dL [employer] Phone: Urea nitrogen/Creatinine (Bld) [Mass ratio] NOT REPORTED [employer] Phone: CBCon 08-02-2020 Erythrocyte distribution width (RBC) [Ratio] 13.0 % Normal 11.8-14.4 [facility] Comment on above: Performed By: #### C BC, BMPX ####[facility] [address] [place] [address] Lab Director: Nate Stafford MD Hematocrit (Bld) [Volume fraction] 41.8 % Normal 40.7-50.3 [facility] Comment on above: Performed By: #### C BC, BMPX ####[facility] [address] [place] [address] lab Director: Nate Stafford MD Hemoglobin (Bld) [Mass/Vol] 13.8 g/dL Normal 13.0-17.0 [facility] Comment on above: Performed By: #### C BC, BMPX ####[facility] [address] [place] [address] lab Director: Nate Stafford MD MCH (RBC) [Entitic mass] 29.3 pg Normal 25.2-33.5 [facility] Comment on above: Performed By: #### C BC, BMPX ####[facility] [address] [place], [place] [phone] Director: Nate Stafford MD MCHC (RBC) [Mass/Vol] 33.0 g/dL Normal 28.4-34.8 [facility] Comment on above: Performed By: #### C BC, BMPX ####[facility] [address] [place], [place] [phone] Director: Nate Stafford MD MCV (RBC) [Entitic vol] 88.7 fL Normal 82.6-102.9 [facility] Comment on above: Performed By: #### C BC, BMPX ####[facility] [address] [place], [place] [phone] Director: Nate Stafford MD NRBC Automated 0.0 per 100 WBC Normal 0.0 [facility] Comment on above: Performed By: #### C BC, BMPX ####[facility] [address] [place] [address] [phone] Director: Nate Stafford MD Platelet mean volume (Bld) [Entitic vol] 10.9 fL Normal 8.1-13.5 [facility] Comment on above: Performed By: #### C BC, BMPX ####[facility] [address] [place], [place] [phone] Director: Nate Stafford MD Platelets (Bld) [#/Vol] 221 10*3/uL Normal 138-453 [facility] Comment on above: Performed By: #### C BC, BMPX ####[facility] [address] [place], [place] [phone] Director: Nate Stafford MD RBC (Bld) [#/Vol] 4.71 10*6/uL Normal 4.21-5.77 [facility] Comment on above: Performed By: #### C BC, BMPX ####[facility] [address] [place], [place] [phone] Director: Nate Stafford MD WBC (Bld) [#/Vol] 10.6 10*3/uL Normal 3.5-11.3 [facility] Comment on above: Performed By: #### C BC, BMPX ####[facility] [address]frz[address] [place] [address] lab Director: Nate Stafford MD CBCOrdered By: Halina Pathak on 08-02-2020 Hematocrit (Bld) [Volume fraction] 41.8 % 40.7 - 50.3 % [employer] Phone: Hemoglobin.gastroint estinal spec 1 Ql (Stl) 13.8 g/dL 13.0 - 17.0 g/dL [employer] Phone: MCH (RBC) [Entitic mass] 29.3 pg 25.2 - 33.5 pg [employer] Phone: MCHC (RBC) [Mass/Vol] 33.0 g/dL 28.4 - 34.8 g/dL [employer] Phone: MCV (RBC) [Entitic vol] 88.7 fL 82.6 - 102.9 fL [employer] Phone: NRBC Automated 0.0 0.0 per 100 WBC [employer] Phone: Platelet distribution width (Bld) [Ratio] 13.0 % 11.8 - 14.4 % [employer] Phone: Platelet mean volume (Bld) [Entitic vol] 10.9 fL 8.1 - 13.5 fL [employer] Phone: Platelets (Bld) [#/Vol] 221 10*3/uL [employer] Phone: RBC (Bld) [#/Vol] 4.71 10*6/uL 4.21 - 5.77 m/uL [employer] Phone: WBC (Bld) [#/Vol] 10.6 10*3/uL [facility] [employer] Phone: Trauma Profileon 08-02-2020 (cont.) Normal [facility] Comment on above: Result Comment: Aver age GFR for 40-49 years old: 99 mL/min/1.73sq m Chronic Kidney Disease: <60 mL/min/1.73sq m Kidney failure: <15 mL/min/1.73sq m eGFR calculated using average adult body mass. Additional eGFR calculator available at: http://www.Mahalo/multiple_crcl_2012.htm Performed By: #### E RTPF, TROPI ####[facility] [address] [place], [place] [phone] Director: Nate Stafford MD Anion gap [Moles/Vol] 10 mmol/L Normal 9-17 [facility] Comment on above: Performed By: #### E RTPF, TROPI ####[facility] [address] [place] [address] [phone] Director: Nate Stafford MD Chloride [Moles/Vol] 100 mmol/L Normal 98-107 [facility] Comment on above: Performed By: #### E RTPF, TROPI ####[facility] [address] [place], [place] [phone] Director: Nate Stafford MD CO2 [Moles/Vol] 24 mmol/L Normal 20-31 [facility] Comment on above: Performed By: #### E RTPF, TROPI ####[facility] [address] [place], [place] [phone] Director: Nate Stafford MD Creatinine [Mass/Vol] 0.71 mg/dL Normal 0.70-1.20 [facility] Comment on above: Performed By: #### E RTPF, TROPI ####[facility] [address] [place], [place] [phone] Director: Nate Stafford MD Ethanol [Mass/Vol] mg/dL Normal <10 [facility] Comment on above: Performed By: #### E RTPF, TROPI ####[facility] [address] [place] [address] Lab Director: Nate Stafford MD Ethanol percent <0.010 Normal <0.010 [facility] Comment on above: Performed By: #### E RTPF, TROPI ####[facility] [address] [place] [address] Lab Director: Nate Stafford MD GFR, Amer >60 Normal >[address] [facility] Comment on above: Performed By: #### E RTPF, TROPI ####[facility] [address] [place] [address] Lab Director: Nate Stafford MD GFR,non Amer >60 Normal >60 [facility] Comment on above: Performed By: #### E RTPF, TROPI ####[facility] [address] [place] [address] Lab Director: Nate Stafford MD Glucose [Mass/Vol] 109 mg/dL High 70-99 [facility] Comment on above: Performed By: #### E RTPF, TROPI ####[facility] [address] [place] [address] Lab Director: Nate Stafford MD Potassium [Moles/Vol] 4.2 mmol/L Normal 3.7-5.3 [facility] Comment on above: Performed By: #### E RTPF, TROPI ####[facility] [address] [place] [address] Lab Director: Nate Stafford MD Sodium [Moles/Vol] 134 mmol/L Low 135-144 [facility] Comment on above: Performed By: #### E RTPF, TROPI ####[facility] [address] [place] [address] lab Director: Nate Stafford MD Urea nitrogen [Mass/Vol] 15 mg/dL Normal 6-20 [facility] Comment on above: Performed By: #### E RTPF, TROPI ####[facility] [address] [place] [address] lab Director: Nate Stafford MD Troponinon 08-02-2020 Troponin, High Sens 6 ng/L Normal 0-22 [facility] Comment on above: Result Comment: High Sensitivity Troponin values cannot be compared with other Troponin methodologies. Patients with high levels of Biotin oral intake (i.e >5mg/day) may have falsely decreased Troponin levels. Samples collected within 8 hours of biotin intake may require additional information for diagnosis. Performed By: #### E RTPF TROPI ####[address] [place] [address] lab Director: Nate Stafford MD Type + Screenon 08-02-2020 Type + Screen Sample Expiration 08/04/2020,2359 Arm Band Number [id number] ABO/Rh(D) A NEGATIVE Antibody Screen NEGATIVE Normal [facility] Comment on above: Performed By: #### T YS ####[facility] [place] [address] lab Director: Nate Stafford MD CT CERVICAL [...] Johnny Smalls MD 08/01/20 Final result Normal [facility] CT CERVICAL SPINE WO CONTRAS TOrdered By: Ronnie Lund on 08-01-2020 C6-7 cervical spondy losis and degenerative disc disease. Evidence of paracervical spasm. No acute bony abnormalities are noted [employer] Work Phone: EXAMINATION: CT OF T HE [...] intact. The visualized lung apices are clear. [employer] Phone: Francisco, Mhpn Incoming R adiant Results From [employer] [facility] - 08/01/2020 7:04 PM EDT EXAMINATION: CT [...] spasm. No acute bony abnormalities are noted [employer] Phone: CT CHEST ABDOMEN PELVIS W CO [...] Elizabeth Shoemaker MD 08/01/20 Final result Normal [facility] CT CHEST ABDOMEN PELVIS W CO NTRASTOrdered [...] to Lung-RADS guidelines. Reference: Radiology. 2017; 284(1):228-43. [employer] Work Phone: EXAMINATION: CT OF T HE CHEST, [...] hernia. Bones/Soft Tissues: No acute osseous abnormality. [employer] Work Phone: Francisco, Mhpn Incoming R adiant Results From [facility] [facility] - 08/01/2020 7:19 PM EDT EXAMINATION: CT [...] to Lung-RADS guidelines. Reference: Radiology. 2017; 284(1):228-43. [employer] Phone: CT HEAD WO CONTRASTon 2020 CT [...] Jarek Fernández MD 08/01/20 Final result Normal [facility] CT Head WO ContrastOrdered B y: Ronnie Lund on 08-01-2020 1. No acute intracra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 Drug Abuse Patient Records regulations: The Federal rules restrict any use of the information to criminally investigate or prosecute any alcohol or drug abuse patient.[facility] HospitalIn the event this information is protected by the Federal Confidentiality of Alcohol and Drug Abuse Patient Records regulations: The Federal rules restrict any use of the information to criminally investigate or prosecute any alcohol or drug abuse patient.[facility] HospitalIn the event this information is protected by the Federal Confidentiality of Alcohol and Drug Abuse Patient Records regulations: The Federal rules restrict any use of the information to criminally investigate or prosecute any alcohol or drug abuse patient.[facility] HospitalIn the event this information is protected by the Federal Confidentiality of Alcohol and Drug Abuse Patient Records regulations: The Federal rules restrict any use of the information to criminally investigate or prosecute any alcohol or drug abuse patient.[facility] HospitalIn the event this information is protected by the Federal Confidentiality of Alcohol and Drug Abuse Patient Records regulations: The Federal rules restrict any use of the information to criminally investigate or prosecute any alcohol or drug abuse patient.[facility] Care Teams (unrecognized sec tion and content) Signs And Displays Sales Representative Relationship Specialty Start Date End Date Salome Aguillon, PRESS SET UP PERSON.MACHINE FEATHEREDGER AND REDUCER [address] [place] [address] PCP - General Family Practice 11/23/19 Signs And Displays Sales Representative Relationship Specialty Start Date End Date Salome Aguillon, PRESS SET UP PERSON.MACHINE FEATHEREDGER AND REDUCER [address] [place] [address] PCP - General Family Practice 11/23/19 Signs And Displays Sales Representative Relationship Specialty Start Date End Date Salome Aguillon, PRESS SET UP PERSON.MACHINE FEATHEREDGER AND REDUCER [address] [place] [address] PCP - General Family Practice 11/23/19 Signs And Displays Sales Representative Relationship Specialty Start Date End Date Salome Aguillon, PRESS SET UP PERSON.MACHINE FEATHEREDGER AND REDUCER [address] [place] [address] PCP - General Family Practice 11/23/19 Signs And Displays Sales Representative Relationship Specialty Start Date End Date ShehanSalome, PRESS SET UP PERSON.MACHINE FEATHEREDGER AND REDUCER [address] [place] [address] PCP - General Family Practice 11/23/19 Signs And Displays Sales Representative Relationship Specialty Start Date End Date [facility] Salome, PRESS SET UP PERSON.MACHINE FEATHEREDGER AND REDUCER [address] [place] [address] PCP - General Family Practice 11/23/19 Signs And Displays Sales Representative Relationship Specialty Start Date End Date [facility] PRESS SET UP PERSON.MACHINE FEATHEREDGER AND REDUCER [address] [place] [address] PCP - General Family Practice 11/23/19 Signs And Displays Sales Representative Relationship Specialty Start Date End Date [facility] PRESS SET UP PERSON.MACHINE FEATHEREDGER AND REDUCER [address] [place] [address] PCP - General Family Practice 11/23/19 Signs And Displays Sales Representative Relationship Specialty Start Date End Date [facility], PRESS SET UP PERSON.MACHINE [employer]ER [address] [place] [address] PCP - General Family Practice 11/23/19 Signs And Displays Sales Representative Relationship Specialty Start Date End Date [facility] PRESS SET UP PERSON.MACHINE FEATHEREDGER AND REDUCER [address] [place] [address] PCP - General Family Practice 11/23/19 Signs And Displays Sales Representative Relationship Specialty Start Date End Date [facility] PRESS SET UP PERSON.MACHINE FEATHEREDGER AND [employer]UC[employer] [address] [place] [address] PCP - General Family Practice 11/23/19 Signs And Displays Sales Representative Relationship Specialty Start Date End Date [facility] PRESS SET UP PERSON.MACHINE FEATHEREDGER AND [employer]UCER [address] [place] [address] PCP - General Family Practice 11/23/19 Signs And Displays Sales Representative Relationship Specialty Start Date End Date [facility] PRESS SET UP PERSON.MACHINE FEATHEREDGER [employer]UCER [address] [place] [address] PCP - General Family Practice 11/23/19 Signs And Displays Sales Representative Relationship Specialty Start Date End Date Salome Aguillon, PRESS SET UP PERSON.MACHINE FEATHEREDGER AND [employer]UCER [address] [place] [address] PCP - General Family Practice 11/23/19 Signs And Displays Sales Representative Relationship Specialty Start Date End Date Salome Aguillon, PRESS SET UP PERSON.MACHINE FEATHEREDGER [employer]UCER [address] [place] [address] PCP - General Family Practice 11/23/19 Signs And Displays Sales Representative Relationship Specialty Start Date End Date Salome Aguillon, PRESS SET UP PERSON.MACHINE FEATHEREDGER AND [employer]UCER [address] [place] [address] PCP - General Family Medicine 11/23/19 Signs And Displays Sales Representative Relationship Specialty Start Date End Date Salome Aguillon, PRESS SET UP PERSON.MACHINE FEATHEREDGER AND [employer]UCER [address] [place] [address] PCP - General Family Medicine 11/23/19 Signs And Displays Sales Representative Relationship Specialty Start Date End Date Salome Aguillon, PRESS SET UP PERSON.MACHINE FEATHEREDGER AND [employer]UCER [address] [place] [address] PCP - General Family Medicine 11/23/19 Signs And Displays Sales Representative Relationship Specialty Start Date End Date Salome Aguillon, PRESS SET UP PERSON.MACHINE FEATHEREDGER AND [employer]UCER [address] [place] [address] PCP - General Family Medicine 11/23/19 Signs And Displays Sales Representative Relationship Specialty Start Date End Date Salome Aguillon, PRESS SET UP PERSON.MACHINE FEATHEREDGER AND [employer]UCER [address] [place] [address] PCP - General Family Medicine 11/23/19 Signs And Displays Sales Representative Relationship Specialty Start Date End Date Salome Aguillon, PRESS SET UP PERSON.MACHINE FEATHEREDGER AND [employer]UCER [address] [place] [address] PCP - General Family Medicine 11/23/19 Signs And Displays Sales Representative Relationship Specialty Start Date End Date [facility] Salome, PRESS SET UP PERSON.MACHINE FEATHEREDGER AND REDUCER [address] [place] [address] PCP - General Family Medicine 11/23/19 Signs And Displays Sales Representative Relationship Specialty Start Date End Date [facility] Salome, PRESS SET UP PERSON.MACHINE FEATHEREDGER AND [employer]UCER [address] [place] [address] PCP - General Family Medicine 11/23/19 Signs And Displays Sales Representative Relationship Specialty Start Date End Date [facility] Salome, PRESS SET UP PERSON.MACHINE FEATHEREDGER AND [employer]UCER [address] [place] [address] PCP - General Family Medicine 11/23/19 Signs And Displays Sales Representative Relationship Specialty Start Date End Date [facility] Salome, PRESS SET UP PERSON.MACHINE FEATHEREDGER AND REDUCER [address] [place] [address] PCP - General Family Medicine 11/23/19 Signs And Displays Sales Representative Relationship Specialty Start Date End Date [facility] Salome, PRESS SET UP PERSON.MACHINE FEATHEREDGER AND REDUCER [address] [place] [address] PCP - General Family Medicine 11/23/19 Signs And Displays Sales Representative Relationship Specialty Start Date End Date [facility] Salome, PRESS SET UP PERSON.MACHINE FEATHEREDGER AND REDUCER [address] [place] [address] PCP - General Family Medicine 11/23/19 Team Status: Active Member Role Status Dates Vonnie Guerrero NP-C Primary Care Provider Active Team Status: Inactive Member Role Status Dates Vonnie Guerrero NP-C Primary Care Provider Active HAIDER Beard Attending Provider Active Team Status: Inactive Member Role Status Dates Salome Aguillon , RN CHILD-C Primary Care Provider Acti tyler Yi NP-C Attending Provider Active Team Status: Inactive Member Role Status Dates Salome Aguillon , RN CHILD-C Primary Care Provider Acti tyler Quezada RN CHILD-C Attending Provider Active Team Status: Inactive Member Role Status Dates Huan Cowan DO Attending Provider Active Team Status: Active Member Role Status Dates Vonnie Guerrero NP-Krissy Primary Care Provider Active HAIDER Beard Attending [...] BE BASED ON THE PRIMARY CLINICAL RECORDS. [employer] [facility]. provides no warranty or guarantee of the accuracy or completeness of information in this document.
--- NOTE | 2023-06-20 07:43 | P.CN_ITS ---
Consult Note: HPI Data of Consult Patient: known to practice within the last 3 years Requesting Physician: Miya Batista NP Primary Care Provider: YOUNG WHEAT Consult Narrative Reason for consult: f/u Narrative: Pardeep Engel a pleasant 52 year old male presents for evaluation and management of back pain. Patient was recently seen in office after an ER visit for severe low back pain with radiculopathy, since then patient had positive blood cultures and is being treated with at IV antibiotics q12hrs. Patient is finishing up a medrol dose pack for low back pain with radiculopathy with benefit, no radicular symptoms but continues to have moderate to severe pain in low back pain. Patient finding moderate benefit to baclofen 10mg, tylenol, ibuprofen, lidocaide patches, and norco 7.5mg BID-TID PRN. TOday low back pain 4/10, increasing to 8/10 with activity, denies numbness tingling weakness. cc:: CC: Miya Batista NP Review of Systems ROS Status of ROS 10 or more systems reviewed and unremark able except as noted in history and below Respiratory Reports: cough Musculoskeletal Reports: back pain PFSH PFSH Medical History Foot pain ?M79.673 - Pain in unspecified foot (ICD-10) Ankle pain ?M25.579 - Pain in unspecified ankle and joints of unspecified foot (ICD-10) Achilles tendinitis ?M76.60 - Achilles tendinitis, unspecified leg (ICD-10) Plantar fascial fibromatosis ?M72.2 - Plantar fascial fibromatosis (ICD-10) Migraine ?G43.909 - Migraine, unspecified, not intractable, without status migrainosus (ICD-10) GERD (gastroesophageal reflux disease) ?K21.9 - Gastro-esophageal reflux disease without esophagitis (ICD-10) Heartburn ?R12 - Heartburn (ICD-10) High cholesterol ?E78.00 - Pure hypercholesterolemia, unspecified (ICD-10) Calcaneal spur ?M77.30 - Calcaneal spur, unspecified foot (ICD-10) Strain of Achilles tendon ?S86.019A - Strain of unspecified Achilles tendon, initial encounter (ICD-10) Low back pain ?M54.50 - Low back pain, unspecified (ICD-10) Kidney stones ?N20.0 - Calculus of kidney (ICD-10) Sleep apnea ?G47.30 - Sleep apnea, unspecified (ICD-10) Hypertension ?I10 - Essential (primary) hypertension (ICD-10) Surgical History History of colonoscopy ?Z98.890 - Other specified postprocedural states (ICD-10) History of foot surgery ?Z98.890 - Other specified postprocedural states (ICD-10) H/O vasectomy (2014) ?Z98.52 - Vasectomy status (ICD-10) H/O shoulder replacement ?Z96.619 - Presence of unspecified artificial shoulder joint (ICD-10) History of carpal tunnel release ?Z98.890 - Other specified postprocedural states (ICD-10) Family History Grandmother Family history of CHF (congestive heart failure) Family history of COPD (chronic obstructive pulmonary disease) Mother Family history of COPD (chronic obstructive pulmonary disease) Family history of cancer Other Family history of lung cancer Social History Within the past year, how often did you have a drink containing alcohol: monthly or less Smoking status: Never smoker Non-prescribed substance use: denies use 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 Highest level of school completed/degree received: Bachelor's degree Are you now , , , , never or living with a partner: living with partner In a typical week, how many times do you talk on the telephone with family, friends, or neighbors: 3 or more times per week How often do you get together with friends or relatives: 3 or more times per week How often do you attend oriental orthodox or congregational services: never Do you belong to any clubs or organizations such as oriental orthodox groups unions, fraternal or athletic groups, or school groups: no Total score: 2 Score interpretation: A score of greater than or equal to 2 indicates the lowest level of social isolation. Little interest or pleasure in doing things: not at all Feeling down, depressed, or hopeless: not at all Feel stressed/tense/nervous/anxious/difficulty sleeping: not at all Meds Home Medications and Allergies Home Medications ?Medication ?Instructions ?Recorded ?Confirmed ?Type acetaminophen 500 mg capsule 1,000 mg PO .Q12 PRN pain 01/28/23 06/06/23 History ibuprofen 200 mg tablet (I-Prin) 800 mg PO Q12H 01/28/23 06/06/23 History lisinopril 10 mg tablet 10 mg PO DAILY 01/28/23 06/06/23 History omeprazole 20 mg capsule,delayed 20 mg PO DAILY 01/28/23 06/06/23 History release aspirin 81 mg tablet,delayed 81 mg PO DAILY 02/24/23 06/06/23 History release (Adult Aspirin Regimen) cholecalciferol (vitamin D3) 25 2,000 unit PO DAILY 02/24/23 06/06/23 History mcg (1,000 unit) chewable tablet ([employer] Daily D) cyanocobalamin (vitamin B-12) 500 500 mcg PO DAILY 02/24/23 06/06/23 History mcg tablet (B-12 DOTS) magnesium 250 mg tablet 500 mg PO DAILY 03/04/23 06/06/23 History lidocaine 5 % topical patch 1 patch topical Q24H #15 ea 05/29/23 06/06/23 Rx (Lidoderm) hydrocodone 7.5 mg-acetaminophen 1 tab PO TID PRN pain #21 tabs 05/30/23 06/06/23 Rx 325 mg tablet baclofen 10 mg tablet 10 mg PO BID 05/31/23 06/06/23 History vitamin B complex (B 1 tab PO DAILY 06/06/23 06/06/23 History Complex-Vitamin B12 tablet) naloxone 4 mg/actuation nasal 4 mg intranasal Q2M PRN opioid 06/12/23 06/19/23 Rx spray (Narcan) overdose #1 ea Allergies Allergy/AdvReac Type Severity Reaction Status Date / Time No Known Drug Allergies Allergy Verified 05/31/23 07:21 Exam Constitutional Vital Signs, click to edit/add: hypoxic on arrival pulse ox 79-88%. after sitting for a few minutes pulse ox improved to 92%. respirations even unlabored regular, 20. BP elevated 179/77, HR elevated 107-111 Documenting provider has reviewed patient's vital signs: yes Common normals: no apparent distress, oriented x3, healthy appearing, alert and well nourished General appearance: cooperative HENMT Common normals: normocephalic, hearing grossly normal bilaterally and moist oral mucous membranes Head and scalp: normocephalic Eye Common normals: PERRL Pupil: PERRL Neck & C-Spine Common normals: full ROM General: normal visual inspection Chest Common normals: inspection of chest normal Respiratory Common normals: normal respiratory effort, no retractions and no use of accessory muscles Back & Pelvis Lumbar spine/lower back: ROM limited, pain with ROM and straight leg raise negative bilaterally Other: sensation intact BLE, strength 5/5 BLE Extremity Common normals: normal to inspection and full ROM Neuro Common normals: oriented x3, CN's II-XII intact bilaterally, moves all extremities, no focal motor deficits, no sensory deficits noted, deep tendon reflexes 2+ bilaterally and gait normal Sensorium/orientation: alert Motor exam: strength 5/5 throughout and no movement abnormalities noted Psych Common normals: mental status grossly normal, thought process normal, cooperative, affect normal, speech normal and activity/motor behavior normal Speech: normal speech Thought process: normal thought process Results Additional Findings Additional findings: If on a controlled substance or opioids, I have checked an [place] report on this patient and there are no aberrancies noted in the prescribing history.??If on a controlled substance or opioid a drug screen was completed and reviewed within the last year, and if there has not been a drug screen completed we ordered one today to monitor higher risk, state monitored pain medication use. As part of providing excellent, safe, comprehensive care, the following was completed at our patient's visit: 1. A medication reconciliation and review to ensure accurate knowledge of current/active medications, including asking our patients to inform us about any [id number] medications or herbal remedies/nutritional supplements/alternative remedies. 2. A review to specifically ensure our patients have had annual screening for screening for depression, screening for tobacco use, and screening for unhealthy alcohol use. For concerning screenings had a discussion with the patient, provided patient education, and recommended follow-up with primary care provider when appropriate. If patient noted with a risk of falling, they received education on strength, gait, and balance training to prevent future risk of falling. Assessment and Plan Assessment and Plan (1) Lumbar pain: Assessment and Plan: VICKIE previously 74% today 52% (2) Lumbar radiculopathy: Assessment and Plan: resolved (3) Myofascial pain: (4) Lumbar spondylosis: (5) Encounter for long-term opiate analgesic use: Assessment and Plan: I feel these medications are improving the patient's quality of life and allow them to tolerate activities of daily living as well as participate in recreational activity.? The patient does not report intolerable side effects. The patient is NOT opioid naive and non-pharmacologic and non-opioid treatment has failed to significantly relieve the patient's pain and improve functionality. The patient has a diagnosis that is related to a somatic or visceral pain etiology. ? ?? I reviewed with the patient the potential risks and side effects with the use of? opioid medications including but not limited to respiratory depression,? sedation, and even . I verified the patient has access to naloxone should? these effects occur. I advised the patient to avoid the use of any other? sedation substances including alcohol, THC, and benzodiazepines while? taking opioid medications due to the risk of compounding side effects and? detrimental outcomes. I reviewed the [employer], pain treatment agreement, urine? drug screen, and opioid start talking forms. The patient was advised to let? their family know they had Naloxone in case they would need to administer? the medication.? ?? A drug screen was completed within the last year, and no aberrancies were noted regarding their use of controlled substances. The patient understands they are subject to the terms and conditions of the pain contract that they have signed. ? ?? I have checked an [place]AR[place] report on this patient today and there are no aberrancies noted in the prescribing history.? Plan advised to f/u with PCP, new onset of cough. currently receiving IV vancomycin q12hrs for positive blood cultures/infection. advised ER evaluation if SOB, fevers, chills. denies fever chills SOB finds significant benefit to norco 7.5mg BID-TID PRN, typically utilizing BID with additional tylenol and ibuprofen. will continue at BID-TID PRN moderate to severe pain 70 tabs next fill to last 30 days. UDS today narcan discussed and prescribed continue f/u with infusion clinic and PCP, patient off work at this time f/u 1 month
--- OUTSIDE RECORDS SUMMARY | 2023-06-20 08:21 | XMS_ITS | CCD ---
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 #### L [id number] #### [facility] CLIA [id number] [address] [place] [address] [place] Hemoglobin (Bld) [Mass/Vol] 14.5 g/dL Normal 13.0-17.0 [facility] Comment on above: Order Comment: Speci men Type: URINE SPECIMEN [facility] Address: [address] [place] [address] Performed By: #### L [id number] #### [facility] CLIA [id number] [address] [place] [address] [place] MCH (RBC) [Entitic mass] 29.2 pg Normal 26.0-34.0 [facility] Comment on above: Order Comment: Speci men Type: URINE SPECIMEN [facility] Address: [address] [place] [address] Performed By: #### L [id number] #### [facility] CLIA [id number] [address] [place] [address] [place] MCHC (RBC) [Mass/Vol] 34.0 g/dL Normal 30.5-36.0 [facility] Comment on above: Order Comment: Speci men Type: URINE SPECIMEN [facility] Address: [address] [place] [address] Performed By: #### L [id number] #### [facility] CLIA [id number] [address] [place] [address] [place] MCV (RBC) [Entitic vol] 85.9 fL Normal 80.0-100.0 [facility] Comment on above: Order Comment: Speci men Type: URINE SPECIMEN [facility] Address: [address] [place], [place] [address] Performed By: #### L [id number] #### [facility] CLIA [id number] [address] [place] [address] [place] Nucleated RBC (Bld) [#/Vol] 10*3/uL Normal <0.01 [facility] Comment on above: Order Comment: Speci men Type: URINE SPECIMEN [facility] Address: [address] [place], [place] [address] Performed By: #### L [id number] #### [facility] CLIA [id number] [address] [place] [address] [place] Platelet mean volume (Bld) [Entitic vol] 10.2 fL Normal 9.0-12.7 [facility] Comment on above: Order Comment: Speci men Type: URINE SPECIMEN [facility] Address: [address] [place], [place] [address] Performed By: #### L [id number] #### [facility] CLIA [id number] [address] [place] [address] [place] Platelets (Bld) [#/Vol] 189 10*3/uL Normal 150-400 [facility] Comment on above: Order Comment: Speci men Type: URINE SPECIMEN [facility] Address: [address] [place], [place] [address] Performed By: #### L [id number] #### [facility] CLIA [id number] [address] [place] [address] [place] RBC (Bld) [#/Vol] 4.97 10*6/uL Normal 4.20-6.00 [facility] Comment on above: Order Comment: Speci men Type: URINE SPECIMEN [facility] Address: [address] [place] [address] Performed By: #### L [id number] #### [facility] CLIA [id number] [address] [place] [address] [facility] [place] WBC (Bld) [#/Vol] 5.26 10*3/uL Normal 3.70-11.00 [facility] Comment on above: Order Comment: Speci men Type: URINE SPECIMEN [facility] Address: [address] [address] Performed By: #### L [id number] #### [facility] CLIA [id number] [address] [place] [address] [facility] Comprehensive metabolic 2000 panelon 05-19-2022 Albumin [Mass/Vol] 4.4 g/dL Normal 3.9-4.9 [facility] Comment on above: Order Comment: Speci men Type: BLOOD SPECIMENOrdering Facility: [facility] Address: [address] [address] Performed By: #### 2 4323-8, 59799-6 ####[facility] [id number] [place] [address] [place] ALP [Catalytic activity/Vol] 83 U/L Normal 38-113 [facility] Comment on above: Order Comment: Speci men Type: BLOOD SPECIMENOrdering Facility: [facility] Address: [address] [address] Performed By: #### 2 4323-8, 81791-9 ####[facility] [id number] [address] [address] [place] ALT [Catalytic activity/Vol] 45 U/L Normal 10-54 [facility] Comment on above: Order Comment: Speci men Type: BLOOD SPECIMENOrdering Facility: [facility] Address: [address] [address] Performed By: #### 2 4323-8, 41807-8 ####[facility] [id number] [place] [address] [place] Anion gap [Moles/Vol] 10 mmol/L Normal 9-18 [facility] Comment on above: Order Comment: Speci men Type: BLOOD SPECIMENOrdering Facility: [facility] Address: [address] [place] [address] Performed By: #### 2 4323-8, 59338-8 ####[facility] [id number] [address] [address] [place] AST [Catalytic activity/Vol] 31 U/L Normal 14-40 [facility] Comment on above: Order Comment: Speci men Type: BLOOD SPECIMENOrdering Facility: [facility] Address: [address] [place] [address] Performed By: #### 2 4323-8, 04129-5 ####[facility] [id number] [place] [address] [place] Bilirubin [Mass/Vol] 0.6 mg/dL Normal 0.2-1.3 [facility] Comment on above: Order Comment: Speci men Type: BLOOD SPECIMENOrdering Facility: [facility] Address: [address] [place] [address] Performed By: #### 2 4323-8, 05955-4 ####[facility]IA [id number] [address] [address] [place] Calcium [Mass/Vol] 9.5 mg/dL Normal 8.5-10.2 [facility] Comment on above: Order Comment: Speci men Type: BLOOD SPECIMENOrdering Facility: [facility] Address: [address] [place] [address] Performed By: #### 2 4323-8, 14375-3 ####[facility] LABCLIA [id number] [address] [address] [place] Chloride [Moles/Vol] 103 mmol/L Normal 97-105 [facility] Comment on above: Order Comment: Speci men Type: BLOOD SPECIMENOrdering Facility: [facility] Address: [address] [address] Performed By: #### 2 4323-8, 12112-2 ####[facility] LABCLIA [id number] [place] [address] [place] CO2 [Moles/Vol] 26 mmol/L Normal 22-30 [facility] Comment on above: Order Comment: Speci men Type: BLOOD SPECIMENOrdering Facility: [facility] Address: [address] [place] [address] Performed By: #### 2 4323-8, ####[facility]IA [id number] [address] [address] [place] Creatinine [Mass/Vol] 0.98 mg/dL Normal 0.73-1.22 [facility] Comment on above: Order Comment: Speci men Type: BLOOD SPECIMENOrdering Facility: [facility] Address: [address] [place] [address] Performed By: #### 2 4323-8, ####[facility]IA [id number] [place] [address] [place] ESTIMATED GLOMERULAR FILTRATION RATE 95 mL/min/1.73m??? Normal >=60 [facility] Comment on above: Order Comment: Speci men Type: BLOOD SPECIMENOrdering Facility: [facility] Address: [address] [place] [address] Result Comment: Halle mated Glomerular Filtration Rate [...] actual GFR. Performed By: #### 2 4323-8, 88748-8 ####[facility] LABCLIA [id number] [place] [address] [place] Glucose [Mass/Vol] 203 mg/dL High 74-99 [facility] Comment on above: Order Comment: Speci men Type: BLOOD SPECIMENOrdering Facility: [facility] Address: [address] [address] Result Comment: The [place] Diabetes Association (ADA) provides guidance for cutoff [...] Standards of Medical Care in Diabetes 2016, [place] Diabetes Association. Diabetes Care. 2016.39(Suppl 1). Performed By: #### 2 4323-8, 03071-8 ####[facility] LABCLIA [id number] [place] [address] [place] Potassium [Moles/Vol] 4.6 mmol/L Normal 3.7-5.1 [facility] Comment on above: Order Comment: Speci men Type: BLOOD SPECIMENOrdering Facility: [facility] Address: [address] [address] Performed By: #### 2 4323-8, 54050-7 ####[facility]CLIA [id number] [address] [address] [place] Protein [Mass/Vol] 7.4 g/dL Normal 6.3-8.0 [facility] Comment on above: Order Comment: Speci men Type: BLOOD SPECIMENOrdering Facility: [facility] Address: [address] [address] Performed By: #### 2 4323-8, 95753-6 ####[facility] [id number] [place] [address] [place] Sodium [Moles/Vol] 139 mmol/L Normal 136-144 [facility] Comment on above: Order Comment: Speci men Type: BLOOD SPECIMENOrdering Facility: [facility] Address: [address] [address] Performed By: #### 2 4323-8, 11485-1 ####[facility]CLIA [id number] [place] [address] [place] Urea nitrogen [Mass/Vol] 17 mg/dL Normal 9-24 [facility] Comment on above: Order Comment: Speci men Type: BLOOD SPECIMENOrdering Facility: [facility] Address: [address] [address] Performed By: #### 2 4323-8, 34723-4 ####[facility]CLIA [id number] [place] [address] [place] HbA1c (Bld)on 05-19-2022 Average glucose Estimated from glycated hemoglobin (Bld) [Mass/Vol] 108 mg/dL Normal [facility] Comment on above: Order Comment: Speci men Type: URINE SPECIMEN [facility] Address: [address] [address] Result Comment: eAG: (Estimated average glucose) is a calculated value from HgbA1c and is sales representative leather goods of the average blood glucose level in the last 2-3 month period. Performed By: #### L [id number] #### [facility] CLIA [id number] [address] [place] [address] [place] HbA1c (Bld) [Mass fraction] 5.4 % Normal 4.3-5.6 [facility] Comment on above: Order Comment: Speci men Type: URINE SPECIMEN [facility] Address: [address] [address] Result Comment: Amer ican Diabetes Association guidelines indicate that patients with HgbA1c in the range 5.7-6.4% are at increased risk for development of diabetes, and intervention by lifestyle modification may be beneficial. HgbA1c greater or equal to 6.5% is considered diagnostic of diabetes. Performed By: #### L [id number] #### [facility] CLIA [id number] Lipid 1996 panelon 3 Cholesterol [Mass/Vol] 219 mg/dL High <200 [facility] Comment on above: Order Comment: Speci men Type: BLOOD SPECIMENOrdering Facility: [facility] Address: [address] [place] [address] Result Comment: <200 mg/dL, Desirable 200-239 mg/dL, Borderline high >239 mg/dL, High Performed By: #### 2 4323-8, 48090-1 ####[facility]IA [id number] [address] Cholesterol in HDL [Mass/Vol] 38 mg/dL Low >39 [facility] Comment on above: Order Comment: Speci men Type: BLOOD SPECIMENOrdering Facility: [facility] Address: [address] [place] [address] Result Comment: 40-5 9 mg/dL, Acceptable >59 mg/dL, High: Negative risk factor for coronary heart disease <40 mg/dL, Low: Positive risk factor for coronary heart disease Performed By: #### 2 4323-8, 63210-1 ####[facility]IA [id number] [address] Cholesterol in LDL [Mass/Vol] 149 mg/dL High <100 [facility] Comment on above: Order Comment: Speci men Type: BLOOD SPECIMENOrdering Facility: [facility] Address: [address] [place] [address] Result Comment: <100 mg/dL, Optimal 100-129 mg/dL, Near optimal/above optimal 130-159 mg/dL, Borderline high 160-189 mg/dL, High >189 mg/dL, Very high Secondary prevention optimal LDL Cholesterol levels are recommended to be < 70 mg/dL Performed By: #### 2 4323-8, 25710-3 ####[facility] LABCLIA [id number] [place], [address] Cholesterol in LDL/Cholesterol in HDL [Mass ratio] 3.92 {ratio} High <2.54 [facility] Comment on above: Order Comment: Tessa flores Type: BLOOD SPECIMENOrdering Facility: [facility] Address: [address] [place] [address] Result Comment: Refe sandeepce: 1. National Cholesterol Education Program ATP III Guideline At-A-Glance Quick Desk Reference: National Heart, Lung, and Blood [place]. National Institutes of Health. 2001: NIH Publication No. 01-3305. 2. An International Atherosclerosis Society position paper: global recommendations for the management of dyslipidemia: executive summary, Atherosclerosis. 2014: 232(2):410-413. Performed By: #### 2 4323-8, 33431-5 ####[facility]IA [id number] [address] STATES OF [facility] Cholesterol in VLDL [Mass/Vol] 32 mg/dL High <30 [facility] Comment on above: Order Comment: Selmadallas flores Type: BLOOD SPECIMENOrdering Facility: [facility] Address: [address] [place] [address] Performed By: #### 2 4323-8, 01904-1 ####[facility]IA [id number] [address] STATES OF [facility] Cholesterol non HDL [Mass/Vol] 181 mg/dL High <130 [facility] Comment on above: Order Comment: Tessa flores Type: BLOOD SPECIMENOrdering Facility: [facility] Address: [address] [place] [address] Result Comment: <130 mg/dL, Optimal 130-159 mg/dL, Near optimal/above optimal 160-189 mg/dL, Borderline high 190-219 mg/dL, High >219 mg/dL, Very high Secondary prevention optimal non HDL Cholesterol levels are recommended to be <100 mg/dL Performed By: #### 2 4323-8, 66297-5 ####[facility] LABCLIA [id number] [place] [address] [place] Cholesterol.total/Ch olesterol in HDL [Mass ratio] 5.76 {ratio} High <5.10 [facility] Comment on above: Order Comment: Speci men Type: BLOOD SPECIMENOrdering Facility: [facility] Address: [address] [address] Performed By: #### 2 4323-8, 18210-3 ####[facility] LABCLIA [id number] [address] [address] [place] [facility] FASTING TIME 10 hrs Normal [facility] Comment on above: Order Comment: Speci men Type: BLOOD SPECIMENOrdering Facility: [facility] Address: [address] [address] Performed By: #### 2 4323-8, 94952-4 ####[facility]CLIA [id number] [address] STATES [facility] Triglyceride [Mass/Vol] 161 mg/dL High <150 [facility] Comment on above: Order Comment: Speci men Type: BLOOD SPECIMENOrdering Facility: [facility] Address: [address] [address] Result Comment: <150 mg/dL, Normal 150-199 mg/dL, Borderline high 200-499 mg/dL, High >499 mg/dL, Very high Performed By: #### 2 4323-8, 31343-8 ####[facility]IA [id number] [place] [address] [place] PSA/PROSTSPECAG SCRNon 05-19 Prostate specific Ag [Mass/Vol] 0.56 ng/mL Normal <2.60 [facility] Comment on above: Order Comment: Speci men Type: BLOOD SPECIMENOrdering Facility: [facility] Address: [address] [address] Result Comment: Tota l PSA test methodology used is the Electrochemiluminescence Immunoassay by [employer]. Total PSA values by differing methodologies cannot be interchanged. Performed By: #### P SAS1 ####[facility] LAB[facility]IA [id number] [facility] [id number] [address] [place] TSH SerPl-aCncon 05-19-2022 TSH Qn 1.020 m[IU]/L Normal 0.270-4.20 0 [facility] Comment on above: Order Comment: Speci men Type: BLOOD SPECIMENOrdering Facility: [facility] Address: [address] [address] Performed By: #### 3 016-3 ####[facility] LABCLIA [id number] [place] [address] [place] URINALYSIS, REFLEX MICROSCOP ICon 05-19-2022 Bilirubin Ql (U) Negative Normal Negative [facility] Comment on above: Order Comment: Speci men Type: URINE SPECIMEN [facility] Address: [address] [place] [address] Performed By: #### L [id number] #### [facility] CLIA [id number] [address] [place] [address] [place] Clarity (Unsp spec) Clear Normal Clear [facility] Comment on above: Order Comment: Speci men Type: URINE SPECIMEN [facility] Address: [address] [place] [address] Performed By: #### L [id number] #### [facility] CLIA [id number] [address] [place] [address] [place] [facility] Color (U) Yellow Normal Yellow [facility] Comment on above: Order Comment: Speci men Type: URINE SPECIMEN [facility] Address: [address] [place], [place] [address] Performed By: #### L [id number] #### [facility] CLIA [id number] [address] [place] [address] [place] Epithelial cells LM.HPF (Urine sed) [#/Area] Few Normal [facility] Comment on above: Order Comment: Speci men Type: URINE SPECIMEN [facility] Address: [address] [place], [place] [address] Performed By: #### L [id number] #### [facility] CLIA [id number] [address] [place] [id number] [place] [address] [place] Glucose Test strip (U) [Mass/Vol] Negative Normal Negative [facility] Comment on above: Order Comment: Speci men Type: URINE SPECIMEN [facility] Address: [address] [place] [address] Performed By: #### L [id number] #### [facility] CLIA [id number] [address] [place] [address] [place] Hemoglobin Ql (U) Negative Normal Negative [facility] Comment on above: Order Comment: Speci men Type: URINE SPECIMEN [facility] Address: [address] [place] [address] Performed By: #### L [id number] #### [facility] CLIA [id number] [address] [place] [address] [place] [facility] Ketones Ql (U) Trace Abnormal Negative [facility] Comment on above: Order Comment: Speci men Type: URINE SPECIMEN [facility] Address: [address] [place] [address] Performed By: #### L [id number] #### [facility] CLIA [id number] [address] [place] [address] Leukocyte esterase Test strip Ql (U) Negative Normal Negative [facility] Comment on above: Order Comment: Speci men Type: URINE SPECIMEN [facility] Address: [address] [place] [address] Performed By: #### L [id number] #### [facility] CLIA [id number] [address] [place] [address] [place] Nitrite Ql (U) Negative Normal Negative [facility] Comment on above: Order Comment: Speci men Type: URINE SPECIMEN [facility] Address: [address] [place] [address] Performed By: #### L [id number] #### [facility] CLIA [id number] [address] [place] [address] [place] pH (U) 5.5 [pH] Normal 5.0-8.0 [facility] Comment on above: Order Comment: Speci men Type: URINE SPECIMEN [facility] Address: [address] [place] [address] Performed By: #### L [id number] #### [facility] CLIA [id number] [address] [place] [address] [place] Protein (U) [Mass/Vol] 1+ Abnormal Negative [facility] Comment on above: Order Comment: Speci men Type: URINE SPECIMEN [facility] Address: [address] [place] [address] Performed By: #### L [id number] #### [facility] CLIA [id number] [address] [place] [address] [place] RBC LM.HPF (Urine sed) [#/Area] 0-3 /HPF Normal 0-3 /HPF [facility] Comment on above: Order Comment: Speci men Type: URINE SPECIMEN [facility] Address: [address] [place] [address] Performed By: #### L [id number] #### [facility] CLIA [id number] [address] [place] [address] [place] Specific gravity (U) [Rel density] >=1.030 High 1.005-1.03 0 [facility] Comment on above: Order Comment: Speci men Type: URINE SPECIMEN [facility] Address: [address] [place] [address] Performed By: #### L [id number] #### [facility] CLIA [id number] [address] [place] [address] Urobilinogen Ql (U) 0.2 EU/dL Normal 0.2-1.0 EU/dL [facility] Comment on above: Order Comment: Speci men Type: URINE SPECIMEN [facility] Address: [address] [place] [address] Performed By: #### L [id number] #### [facility] CLIA [id number] [address] [place] [address] WBC LM.HPF (Urine sed) [#/Area] 0-5 /HPF Normal 0-5 /HPF [facility] Comment on above: Order Comment: Speci men Type: URINE SPECIMEN [facility] Address: [address] [place] [address] Performed By: #### L [id number] #### [facility] CLIA [id number] [address] [place], [place] [address] [facility] MRI CSPINE WO CONon 04-23-19 MRI CSPINE [...] KINGSLEY HERRERA Date: 2022-04-23 06:50 Normal [facility] XR FOREIGN BODY EYEon 2022 XR FOREIGN BODY EYE EXAMINATION: XR FORE IGN BODY EYE HISTORY: Foreign body in eye COMPARISON: No relevant comparison available. FINDINGS: ORBITS: Negative for a metallic foreign body. OTHER: Negative. IMPRESSION: 1. No metallic foreign body within the orbits. Electronically authenticated by: JAYY GIVENS Date: 2022-04-20 13:52 Normal [facility] CNOVon 02-15-2022 CNOV Office Visit [facility] ) -- NEHAL BAIG ([id number]) 1970 M Date Time Provider Department 02/15/22 2:20 PM SALOME AGUILLON [facility] During your visit today, we recorded [...] endo wt managmeent Dr. Jorge -needs f/up personnel supervisor Tarsha Jamison -needs appt with Dr. Man/Agustina-endo wt management team [phone] Has been off metformin 6 weeks + [...] 2020. This is a workers comp issue-through [facility]/Dr. Cowan. 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 Shoulder replacement surgery left 08/23/24. 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 HM: -declines flu vaccine -declines covid [...] looks fine. Vitamin D is low-please begin qfdk-bup-iyeojyz vitamin D3 2000 units daily. Urine asymptomatic. Component Latest Ref Rng AND Units 02/10/2022 Color Yellow Yellow Clarity Clear Clear Glucose, Urine Negative Negative Bilirubin, Urine Negative Negative Ketones, Urine Negative Negative Specific A[place], Ur 1.005 - 1.030 1.037 (H) Hemoglobin/Blood,Ur [...] other (Epilepsy) (more content not included)... Normal [facility] 25(OH)[facility]3 [facility] 25-hydroxyvitamin D3 [Mass/Vol] 28.2 ng/mL Low 31.0-80.0 [facility] Comment on above: Order Comment: Speci men Type: BLOOD SPECIMENOrdering Facility: [facility] Address: [address] [place] [address] Result Comment: Clas sification of 25 [place] Vitamin D status: Deficiency/Insufficiency: < or = 30 ng/ml. Sufficiency/Optimal Levels: 31-80 ng/mL Toxicity: > 100 ng/mL. Test performed by chemiluminescent immunoassay. Performed By: #### 1 989-3 ####[facility] [id number] [place] [address] [place] CBC panel Auto (Bld)on 02-10 Erythrocyte distribution width (RBC) [Ratio] 13.2 % Normal 11.5-15.0 [facility] Comment on above: Order Comment: Speci men Type: BLOOD SPECIMENOrdering Facility: [facility] Address: [address] [place] [address] Performed By: #### 5 8410-2 ####[facility] LABCLIA [id number] [place] [address] [place] Hematocrit (Bld) [Volume fraction] 41.9 % Normal 39.0-51.0 [facility] Comment on above: Order Comment: Speci men Type: BLOOD SPECIMENOrdering Facility: [facility] Address: [address] [place] [address] Performed By: #### 5 8410-2 ####[facility] LABCLIA [id number] [place] [address] [place] Hemoglobin (Bld) [Mass/Vol] 13.9 g/dL Normal 13.0-17.0 [facility] Comment on above: Order Comment: Speci men Type: BLOOD SPECIMENOrdering Facility: [facility] Address: [address] [place] [address] Performed By: #### 5 8410-2 ####[facility] LABCLIA [id number] [address] [place] MCH (RBC) [Entitic mass] 29.0 pg Normal 26.0-34.0 [facility] Comment on above: Order Comment: Speci men Type: BLOOD SPECIMENOrdering Facility: [facility] Address: [address] [place] [address] Performed By: #### 5 8410-2 ####[facility] LABCLIA [id number] [address] [place] MCHC (RBC) [Mass/Vol] 33.2 g/dL Normal 30.5-36.0 [facility] Comment on above: Order Comment: Speci men Type: BLOOD SPECIMENOrdering Facility: [facility] Address: [address] [place], [place] [address] Performed By: #### 5 8410-2 ####[facility] LABIA [id number] [place] [address] [place] MCV (RBC) [Entitic vol] 87.5 fL Normal 80.0-100.0 [facility] Comment on above: Order Comment: Speci men Type: BLOOD SPECIMENOrdering Facility: [facility] Address: [address] [place], [place] [address] Performed By: #### 5 8410-2 ####[facility] LABCLIA [id number] [address] [place] Nucleated RBC (Bld) [#/Vol] 10*3/uL Normal <0.01 [facility] Comment on above: Order Comment: Speci men Type: BLOOD SPECIMENOrdering Facility: [facility] Address: [address] [place], [place] [address] Performed By: #### 5 8410-2 ####[facility] LABIA [id number] [place] [address] [place] Platelet mean volume (Bld) [Entitic vol] 10.6 fL Normal 9.0-12.7 [facility] Comment on above: Order Comment: Speci men Type: BLOOD SPECIMENOrdering Facility: [facility] Address: [address] [place], [place] [address] Performed By: #### 5 8410-2 ####[facility] LABIA [id number] [place] [address] [place] Platelets (Bld) [#/Vol] 198 10*3/uL Normal 150-400 [facility] Comment on above: Order Comment: Speci men Type: BLOOD SPECIMENOrdering Facility: [facility] Address: [address] [place], [place] [address] Performed By: #### 5 8410-2 ####[facility]IA [id number] [place] [address] [place] RBC (Bld) [#/Vol] 4.79 10*6/uL Normal 4.20-6.00 [facility] Comment on above: Order Comment: Speci men Type: BLOOD SPECIMENOrdering Facility: [facility] Address: [address] [place], [place] [address] Performed By: #### 5 8410-2 ####[facility]IA [id number] [place] [address] [place] WBC (Bld) [#/Vol] 6.46 10*3/uL Normal 3.70-11.00 [facility] Comment on above: Order Comment: Speci men Type: BLOOD SPECIMENOrdering Facility: [facility] Address: [address] [place], [place] [address] Performed By: #### 5 8410-2 ####[facility] LABCLIA [id number] [address] Comprehensive metabolic 2000 panelon 02-10-2022 Albumin [Mass/Vol] 4.5 g/dL Normal 3.9-4.9 [facility] Comment on above: Order Comment: Speci men Type: BLOOD SPECIMENOrdering Facility: [facility] Address: [address] [place] [address] Performed By: #### 3 016-3, 40478-5 ####[facility] LABCLIA [id number] [place] [address] [place]#### 13619-1 ####[facility] LABCLIA [id number] [address] [place] LABORATORYCLIA [id number] [place] [address] [place] ALP [Catalytic activity/Vol] 85 U/L Normal 38-113 [facility] Comment on above: Order Comment: Speci men Type: BLOOD SPECIMENOrdering Facility: [facility] Address: [address] [place] [address] Performed By: #### 3 016-3, 84332-7 ####[facility] LABCLIA [id number] [place] [address] [place]#### 63472-9 ####[facility] LABCLIA [id number] [place] [address] [facility] LABORATORYCLIA [id number] [place] [address] [place] ALT [Catalytic activity/Vol] 34 U/L Normal 10-54 [facility] Comment on above: Order Comment: Speci men Type: BLOOD SPECIMENOrdering Facility: [facility] Address: [address] Performed By: #### 3 016-3, 53319-7 ####[facility] LABCLIA [id number] [place] [address] [place]#### 50762-7 ####[facility] LABCLIA [id number] [address] OF [facility]ORYCLIA [id number] [place] [address] [place] Anion gap [Moles/Vol] 10 mmol/L Normal 9-18 [facility] Comment on above: Order Comment: Speci men Type: BLOOD SPECIMENOrdering Facility: [facility] Address: [address] [place] [address] Performed By: #### 3 016-3,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 your visit today, we recorded the following information about you: Pulse Blood pressure Weight Height 73/minute 127/77 179.6 kg 1.854 m Salome Aguillon APRN.PAINT SPRAYING MACHINE OPERATOR HELPER 08/10/2021 10:21 AM Signed This note was created using Agradisriter. Subjective Nehal Baig is a 50 year [...] 2020. This is a workers comp issue-through [facility]/Dr. Cowan. 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 . . FINAL DIAGNOSIS This result [...] Appearance: No (more content not included)... Normal [facility] BLOOD BANKOrdered By: Kat Salcedo on 08-08-2021 ABO/Rh Retype Interp Negative Invalid Interpretation Code [facility] BB Subsection CHEMISTRYOrdered By: SYSTEM SYSTEM on [...] rate/Area] mL/min/1.73 m2 Normal >=59mL/min /1.73 m2 [facility] Chem S Glucose [Mass/Vol] 103 mg/dL Normal [...] AM) Normal Negative [facility] UA Auto SS [place].plasma/Lithi um.RBC (Bld) [Mass ratio] 0-3 /HPF Normal [...] [Mass/Vol] Negative (08/08/21 10:04 AM) Normal Negative [facility] UA Auto SS Specific gravity (U) [Rel density] 1.025 *NA* (08/08/21 10:04 AM) Invalid Interpretation Code 1.005 - 1.030 [facility] UA Auto SS UA Spec Desc Clean Catch (08/08/21 10:04 AM) Normal [facility] UA Auto SS Urobilinogen Qn (U) 0.5783854 {Sean'U}/dL Normal 0.0 - 1.0 EU/dL [facility] UA Auto SS WBC Auto Ql (U) Negative (08/08/21 10:04 AM) Normal Negative [facility] UA Auto SS WBC LM.HPF (Urine sed) [#/Area] 0-5 /HPF Normal 0-5/HPF [facility] UA Auto SS ANES POSTPROC EVALon 022 ANES POSTPROC EVAL HNO ID: [id number] Author: Lucy Flanagan MD Service: Anesthesiology Author Type: Anesthesiologist Type: Anesthesia Postprocedure Evaluation Filed: 07/31/2021 12:56 PM Note Text: POST ANESTHESIA EVALUATION NOTE : 1970 Procedure Summary Date: 07/31/21 Room / Location: [facility] Endoscopy Anesthesia Start: 1053 Anesthesia Stop: 1145 Procedure: COLONOSCOPY DIAGNOSTIC Diagnosis: Dark stools (OTHER) Scheduled Providers: Jayy Patel MD; Cori Ashley APRN.WRAPPER REWINDER; Lucy Flanagan MD Responsible Provider: Lucy Flanagan [...] July 31, 2021 TIME: 12:55 PM CSN: [id number] Normal [facility] ANES PRE-OPon 07-31-2021 ANES PRE-OP HNO ID: [id number] Author: Lucy Flanagan MD Service: Anesthesiology Author Type: Anesthesiologist Type: Anesthesia Preprocedure Evaluation Filed: 07/31/2021 9:50 AM Note Text: ANESTHESIOLOGY DAY OF SURGERY NOTE : 1970 Procedure Information Date/Time: 07/31/21 1030 Scheduled providers: Jayy Patel MD; Cori Ashley APRN.WRAPPER REWINDER; Lucy Flanagan MD Procedure: COLONOSCOPY DIAGNOSTIC Location: [facility] Endoscopy Estimated body mass index is [...] July 31, 2021 TIME: 9:49 AM CSN: [id number] Normal [facility] COLONOSCOPY DIAGNOSTICon [facility] HISTORY PHYSICALon HISTORY PHYSICAL HNO ID: [id number] Author: Jayy Patel MD Service: General Surgery [...] DATE: July 31, 2021 TIME: 10:58 AM [facility] SURGICAL PATHOLOGYon 022 CASE REPORT Normal [facility] Comment on above: Order Comment: Speci men Type: TISSUE SPECIMEN [facility] Address: [address] [place] [address] Result Comment: Surg ica Pathology Report Case: [id number] Authorizing Provider: Jayy Patel MD Collected: 07/31/2021 11:31 AM Ordering Location: [facility]oscopy Received: 07/31/2021 02:15 PM Pathologist: Luis F Quiroz MD Specimen: SIGMOID COLON POLYP Performed By: #### S #### [facility] CLIA [id number] [address] [place] [address] FINAL DIAGNOSIS [facility] Comment on above: Order Comment: Speci men Type: TISSUE SPECIMEN [facility] Address: [address] [place] [address] Result Comment: Sigm oid colon polyp, biopsy: - Tubular adenoma. JEL 08/01/2021 Performed By: #### S #### [facility] CLIA [id number] [address] [place] [address] OF [facility] FINAL PERFORMING LAB Normal [facility] Comment on above: Order Comment: Speci men Type: TISSUE SPECIMEN [facility] Address: [address] [place] [address] Result Comment: Diag nostic interpretation performed at [facility], [address] [place] [address] CLIA# [id number] Irrigating Pump Operator: Nehal Cid M.D. Performed By: #### S #### [facility] CLIA [id number] [address] [place] [address] GROSS DESCRIPTION Normal [facility] Comment on above: Order Comment: Speci men Type: TISSUE SPECIMEN [facility] Address: [address] [place] [address] Result Comment: A. S IGMOID COLON POLYP. Received in formalin are multiple pieces of kaufman, soft tissue aggregating to 1.8 x 0.3 x 0.2 cm. Totally submitted in one cassette. SS July 31, 2021 7:11 PM Gross examination performed at [facility], [address] [place] [address] Performed By: #### S #### [facility] LABORATORY CLIA [id number] [place] [address] [place] CBC panel Auto (Bld)on 07-29 Erythrocyte distribution width (RBC) [Ratio] 12.5 % Normal 11.5-15.0 [facility] Comment on above: Order Comment: Speci men Type: URINE SPECIMEN [facility] Address: [address] [place] [address] Performed By: #### L [id number] #### [facility] CLIA [id number] [address] [place] [address] [place] Hematocrit (Bld) [Volume fraction] 39.4 % Normal 39.0-51.0 [facility] Comment on above: Order Comment: Speci men Type: URINE SPECIMEN [facility] Address: [address] [place] [address] Performed By: #### L [id number] #### [facility] CLIA [id number] [address] [place] [address] [place] Hemoglobin (Bld) [Mass/Vol] 13.6 g/dL Normal 13.0-17.0 [facility] Comment on above: Order Comment: Speci men Type: URINE SPECIMEN [facility] Address: [address] [place] [address] Performed By: #### L [id number] #### [facility] CLIA [id number] [address] [place] [address] [place] MCH (RBC) [Entitic mass] 29.3 pg Normal 26.0-34.0 [facility] Comment on above: Order Comment: Speci men Type: URINE SPECIMEN [facility] Address: [address] [place], [place] [address] Performed By: #### L [id number] #### [facility] CLIA [id number] [address] [place] [address] MCHC (RBC) [Mass/Vol] 34.5 g/dL Normal 30.5-36.0 [facility] Comment on above: Order Comment: Speci men Type: URINE SPECIMEN [facility] Address: [address] [place], [place] [address] Performed By: #### L [id number] #### [facility] CLIA [id number] [address] [place] [address] [place] MCV (RBC) [Entitic vol] 84.9 fL Normal 80.0-100.0 [facility] Comment on above: Order Comment: Speci men Type: URINE SPECIMEN [facility] Address: [address] [place] [address] Performed By: #### L [id number] #### [facility] CLIA [id number] [address] [place] [address] [place] Nucleated RBC (Bld) [#/Vol] 10*3/uL Normal <0.01 [facility] Comment on above: Order Comment: Speci men Type: URINE SPECIMEN [facility] Address: [address] [place], [place] [address] Performed By: #### L [id number] #### [facility] CLIA [id number] [address] [place] [address] [place] Platelet mean volume (Bld) [Entitic vol] 9.9 fL Normal 9.0-12.7 [facility] Comment on above: Order Comment: Speci men Type: URINE SPECIMEN [facility] Address: [address] [place], [place] [address] Performed By: #### L [id number] #### [facility] CLIA [id number] [address] [place] [address] [place] Platelets (Bld) [#/Vol] 187 10*3/uL Normal 150-400 [facility] Comment on above: Order Comment: Speci men Type: URINE SPECIMEN [facility] Address: [address] [place] [address] Performed By: #### L [id number] #### [facility] CLIA [id number] [address] [place] [address] [place] RBC (Bld) [#/Vol] 4.64 10*6/uL Normal 4.20-6.00 [facility] Comment on above: Order Comment: Speci men Type: URINE SPECIMEN [facility] Address: [address] [place] [address] Performed By: #### L [id number] #### [facility] CLIA [id number] [address] [place] [address] [place] OF [facility] WBC (Bld) [#/Vol] 5.29 10*3/uL Normal 3.70-11.00 [facility] Comment on above: Order Comment: Speci men Type: URINE SPECIMEN [facility] Address: [address] [place] [address] Performed By: #### L [id number] #### [facility] CLIA [id number] [address] [place], [place] [address] [place] Comprehensive metabolic 2000 panelon 07-29-2021 Albumin [Mass/Vol] 4.6 g/dL Normal 3.9-4.9 [facility] Comment on above: Order Comment: Speci men Type: BLOOD SPECIMENOrdering Facility: [facility] Address: [address] [place] [address] Performed By: #### L IPB, 20364-3 ####[facility] LABCLIA [id number] [place] [address] [place] ALP [Catalytic activity/Vol] 80 U/L Normal 38-113 [facility] Comment on above: Order Comment: Speci men Type: BLOOD SPECIMENOrdering Facility: [facility] Address: [address] [place], [place] [address] Performed By: #### L KIERRAB, 94586-2 ####[facility] LABCLIA [id number] [place] [address] [place] ALT [Catalytic activity/Vol] 58 U/L High 10-54 [facility] Comment on above: Order Comment: Speci men Type: BLOOD SPECIMENOrdering Facility: [facility] Address: [address] [place] [address] Performed By: #### L KIERRAB, 15890-6 ####[facility] LABCLIA [id number] [place] [address] [place] Anion gap [Moles/Vol] 7 mmol/L Low 9-18 [facility] Comment on above: Order Comment: Speci men Type: BLOOD SPECIMENOrdering Facility: [facility] Address: [address] [place] [address] Performed By: #### L KIERRAB, 78458-9 ####[facility] LABCLIA [id number] [place] [address] [place] AST [Catalytic activity/Vol] 39 U/L Normal 14-40 [facility] Comment on above: Order Comment: Speci men Type: BLOOD SPECIMENOrdering Facility: [facility] Address: [address] [place], [place] [address] Performed By: #### L IPB, 54237-3 ####[facility] LABCLIA [id number] [place] [address] [place] Bilirubin [Mass/Vol] 0.4 mg/dL Normal 0.2-1.3 [facility] Comment on above: Order Comment: Speci men Type: BLOOD SPECIMENOrdering Facility: [facility] Address: [address] [place], [place] [address] Performed By: #### L IPB, 23067-1 ####[facility] LABCLIA [id number] [place] [address] [place] Calcium [Mass/Vol] 9.8 mg/dL Normal 8.5-10.2 [facility] Comment on above: Order Comment: Speci men Type: BLOOD SPECIMENOrdering Facility: [facility] Address: [address] [place], [place] [address] Performed By: #### L IPB, ####[facility] LABCLIA [id number] [place] [address] [place] Chloride [Moles/Vol] 104 mmol/L Normal 97-105 [facility] Comment on above: Order Comment: Speci men Type: BLOOD SPECIMENOrdering Facility: [facility] Address: [address] [place] [address] Performed By: #### L IPB, 98118-9 ####[facility] LABCLIA [id number] [place] [address] [place] CO2 [Moles/Vol] 28 mmol/L Normal 22-30 [facility] Comment on above: Order Comment: Speci men Type: BLOOD SPECIMENOrdering Facility: [facility] Address: [address] [place], [place] [address] Performed By: #### L IPB, 98458-7 ####[facility] LABCLIA [id number] [place] [address] [place] Creatinine [Mass/Vol] 0.98 mg/dL Normal 0.73-1.22 [facility] Comment on above: Order Comment: Speci men Type: BLOOD SPECIMENOrdering Facility: [facility] Address: [address] [place], [place] [address] Performed By: #### L IPB, 30833-1 ####[facility] LABCLIA [id number] [place] [address] [place] ESTIMATED GLOMERULAR FILTRATION RATE 95 mL/min/1.73m??? Normal >=60 [facility] Comment on above: Order Comment: Tessa flores Type: BLOOD SPECIMENOrdering Facility: [facility] Address: [address] [place], [place] [address] Result Comment: Halle mated Glomerular Filtration Rate [...] actual GFR. Performed By: #### Natalie DENT, 38079-3 ####[facility] LABIA [id number] [place] [address] [place] Glucose [Mass/Vol] 120 mg/dL High 74-99 [facility] Comment on above: Order Comment: Tessa flores Type: BLOOD SPECIMENOrdering Facility: [facility] Address: [address] [place] [address] Result Comment: The [place] Diabetes Association (ADA) provides guidance for cutoff [...] Standards of Medical Care in Diabetes 2016, [place] Diabetes Association. Diabetes Care. 2016.39(Suppl 1). Performed By: #### L FILIPE, 95992-2 ####[facility] LABIA [id number] [place] [address] [place] Potassium [Moles/Vol] 4.7 mmol/L Normal 3.7-5.1 [facility] Comment on above: Order Comment: Tessa flores Type: BLOOD SPECIMENOrdering Facility: [facility] Address: [address] [place] [address] Performed By: #### L IPB, 47149-8 ####[facility] LABCLIA [id number] [place] [address] [place] Protein [Mass/Vol] 7.6 g/dL Normal 6.3-8.0 [facility] Comment on above: Order Comment: Speci men Type: BLOOD SPECIMENOrdering Facility: [facility] Address: [address] [place] [address] Performed By: #### L IPB, 61831-5 ####[facility] LABCLIA [id number] [place] [address] [place] Sodium [Moles/Vol] 139 mmol/L Normal 136-144 [facility] Comment on above: Order Comment: Speci men Type: BLOOD SPECIMENOrdering Facility: [facility] Address: [address] [place] [address] Performed By: #### L IPB, 99984-0 ####[facility] LABCLIA [id number] [place] [address] [place] Urea nitrogen [Mass/Vol] 18 mg/dL Normal 9-24 [facility] Comment on above: Order Comment: Speci men Type: BLOOD SPECIMENOrdering Facility: [facility] Address: [address] [place] [address] Performed By: #### L IPB, 65957-3 ####[facility] LABCLIA [id number] [place] [address] [place] HGB A1Con 07-29-2021 Average glucose Estimated from glycated hemoglobin (Bld) [Mass/Vol] 117 mg/dL Normal [facility] Comment on above: Order Comment: Speci men Type: BLOOD SPECIMENOrdering Facility: [facility] Address: [address] [place] [address] Result Comment: eAG: (Estimated average glucose) is a calculated value from HgbA1c and is sales representative leather goods of the average blood glucose level in the last 2-3 month period. Performed By: #### H BA1C ####[facility] LABCLIA [id number] [place] [address] [place] HbA1c (Bld) [Mass fraction] 5.7 % High 4.3-5.6 [facility] Comment on above: Order Comment: Speci men Type: BLOOD SPECIMENOrdering Facility: [facility] Address: [address] [place] [address] Result Comment: Amer ican Diabetes Association guidelines indicate that patients with HgbA1c in the range 5.7-6.4% are at increased risk for development of diabetes, and intervention by lifestyle modification may be beneficial. HgbA1c greater or equal to 6.5% is considered diagnostic of diabetes. Performed By: #### H BA1C ####[facility] LABCLIA [id number] [place] [address] [place] LIPID PANEL BASICon 07-30-19 22 Cholesterol [Mass/Vol] 240 mg/dL High <200 [facility] Comment on above: Order Comment: Speci men Type: BLOOD SPECIMENOrdering Facility: [facility] Address: [address] [place] [address] Result Comment: <200 mg/dL, Desirable 200-239 mg/dL, Borderline high >239 mg/dL, High Performed By: #### L FILIPE, 01927-8 ####[facility] LABCLIA [id number] [address] [place] Cholesterol in HDL [Mass/Vol] 37 mg/dL Low >39 [facility] Comment on above: Order Comment: Speci men Type: BLOOD SPECIMENOrdering Facility: [facility] Address: [address] [place] [address] Result Comment: 40-5 9 mg/dL, Acceptable >59 mg/dL, High: Negative risk factor for coronary heart disease <40 mg/dL, Low: Positive risk factor for coronary heart disease Performed By: #### L KIERRAB, 16710-4 ####[facility] LABCLIA [id number] [place] [address] [place] [facility] Cholesterol in LDL [Mass/Vol] 175 mg/dL High <100 [facility] Comment on above: Order Comment: Speci men Type: BLOOD SPECIMENOrdering Facility: [facility] Address: [address] [place] [address] Result Comment: <100 mg/dL, Optimal 100-129 mg/dL, Near optimal/above optimal 130-159 mg/dL, Borderline high 160-189 mg/dL, High >189 mg/dL, Very high Secondary prevention optimal LDL Cholesterol levels are recommended to be < 70 mg/dL Performed By: #### L FILIPE, 90303-4 ####[facility] LABCLIA [id number] [address] Cholesterol in LDL/Cholesterol in HDL [Mass ratio] 4.73 {ratio} High <2.54 [facility] Comment on above: Order Comment: Speci men Type: BLOOD SPECIMENOrdering Facility: [facility] Address: [address] [place] [address] Result Comment: Refe rence: 1. National Cholesterol Education Program ATP III Guideline At-A-Glance Quick Desk Reference: National Heart, Lung, and Blood [place]. National Institutes of Health. 2001: NIH Publication No. 01-3305. 2. An International Atherosclerosis Society position paper: global recommendations for the management of dyslipidemia: executive summary, Atherosclerosis. 2014: 232(2):410-413. Performed By: #### L FILIPE, 01517-7 ####[facility] LABCLIA [id number] [place] [address] [place] [facility] Cholesterol in VLDL [Mass/Vol] 28 mg/dL Normal <30 [facility] Comment on above: Order Comment: Speci men Type: BLOOD SPECIMENOrdering Facility: [facility] Address: [address] [place] [address] Performed By: #### L KIERRAB, 98630-0 ####[facility] LABCLIA [id number] [place] [address] [place] Cholesterol non HDL [Mass/Vol] 203 mg/dL High <130 [facility] Comment on above: Order Comment: Speci men Type: BLOOD SPECIMENOrdering Facility: [facility] Address: [address] [place] [address] Result Comment: <130 mg/dL, Optimal 130-159 mg/dL, Near optimal/above optimal 160-189 mg/dL, Borderline high 190-219 mg/dL, High >219 mg/dL, Very high Secondary prevention optimal non HDL Cholesterol levels are recommended to be <100 mg/dL Performed By: #### L FILIPE, 00459-7 ####[facility] LABCLIA [id number] [address] Cholesterol.total/Ch olesterol in HDL [Mass ratio] 6.49 {ratio} High <5.10 [facility] Comment on above: Order Comment: Speci men Type: BLOOD SPECIMENOrdering Facility: [facility] Address: [address] [place] [address] Performed By: #### Natalie DENT, 11599-6 ####[facility] LABCLIA [id number] [address] OF [facility] FASTING TIME 12. hrs Normal [facility] Comment on above: Order Comment: Speci men Type: BLOOD SPECIMENOrdering Facility: [facility] Address: [address] [place] [address] Performed By: #### Natalie DENT, 28665-5 ####[facility] LABCLIA [id number] [address] Triglyceride [Mass/Vol] 140 mg/dL Normal <150 [facility] Comment on above: Order Comment: Speci men Type: BLOOD SPECIMENOrdering Facility: [facility] Address: [address] [place] [address] Result Comment: <150 mg/dL, Normal 150-199 mg/dL, Borderline high 200-499 mg/dL, High >499 mg/dL, Very high Performed By: #### L KIERRAB, 18480-7 ####[facility]CLIA [id number] [place] [address] [place] PSA/PROSTSPECAG SCRNon 07-29 Prostate specific Ag [Mass/Vol] 0.41 ng/mL Normal <2.60 [facility] Comment on above: Order Comment: Speci men Type: BLOOD SPECIMENOrdering Facility: [facility] Address: [address] [place] [address] Result Comment: Tota l PSA test methodology used is the Electrochemiluminescence Immunoassay by [employer]. Total PSA values by differing methodologies cannot be interchanged. Performed By: #### P SAS1 ####[facility] LABCLIA [id number] [place] [address] [place] TSH SerPl-aCncon 07-29-2021 TSH Qn 4.060 m[IU]/L Normal 0.270-4.20 0 [facility] Comment on above: Order Comment: Speci men Type: BLOOD SPECIMENOrdering Facility: [facility] Address: [address] [place] [address] Performed By: #### 3 016-3 ####[facility] LABCLIA [id number] [place] [address] [place] URINALYSIS, REFLEX MICROSCOP ICon 07-29-2021 Bilirubin Ql (U) Negative Normal Negative [facility] Comment on above: Order Comment: Speci men Type: URINE SPECIMEN [facility] Address: [address] [place] [address] Performed By: #### L [id number] #### [facility] CLIA [id number] [address] [place] [address] [place] Clarity (Unsp spec) Clear Normal Clear [facility] Comment on above: Order Comment: Speci men Type: URINE SPECIMEN [facility] Address: [address] [place] [address] Performed By: #### L [id number] #### [facility] CLIA [id number] [address] [place] [address] [place] [facility] Color (U) Yellow Normal Yellow [facility] Comment on above: Order Comment: Speci men Type: URINE SPECIMEN [facility] Address: [address] [place] [address] Performed By: #### L [id number] #### [facility] CLIA [id number] [address] [place] [address] [place] Glucose Test strip (U) [Mass/Vol] Negative Normal Negative [facility] Comment on above: Order Comment: Speci men Type: URINE SPECIMEN [facility] Address: [address] [place] [address] Performed By: #### L [id number] #### [facility] CLIA [id number] [address] [place] [address] [place] Hemoglobin Ql (U) Negative Normal Negative [facility] Comment on above: Order Comment: Speci men Type: URINE SPECIMEN [facility] Address: [address] [place] [address] Performed By: #### L [id number] #### [facility] CLIA [id number] [address] [place] [address] [place] Ketones Ql (U) Negative Normal Negative [facility] Comment on above: Order Comment: Speci men Type: URINE SPECIMEN [facility] Address: [address] [place] [address] Performed By: #### L [id number] #### [facility] CLIA [id number] [address] [place] [address] [place] Leukocyte esterase Test strip Ql (U) Negative Normal Negative [facility] Comment on above: Order Comment: Speci men Type: URINE SPECIMEN [facility] Address: [address] [place] [address] Performed By: #### L [id number] #### [facility] CLIA [id number] [address] [place] [address] [place] Nitrite Ql (U) Negative Normal Negative [facility] Comment on above: Order Comment: Speci men Type: URINE SPECIMEN [facility] Address: [address] [place] [address] Performed By: #### L [id number] #### [facility] CLIA [id number] [address] [place] [address] [place] pH (U) 5.5 [pH] Normal 5.0-8.0 [facility] Comment on above: Order Comment: Speci men Type: URINE SPECIMEN [facility] Address: [address] [place] [address] Performed By: #### L [id number] #### [facility] CLIA [id number] [address] [place] [address] [place] Protein (U) [Mass/Vol] Negative Normal Negative [facility] Comment on above: Order Comment: Speci men Type: URINE SPECIMEN [facility] Address: [address] [place] [address] Performed By: #### L [id number] #### [facility] CLIA [id number] [address] [place] [address] [place] Specific gravity (U) [Rel density] 1.025 Normal 1.005-1.03 0 [facility] Comment on above: Order Comment: Speci men Type: URINE SPECIMEN [facility] Address: [address] [place] [address] Performed By: #### L [id number] #### [facility] CLIA [id number] [address] [place] [address] [place] Urobilinogen Ql (U) 0.2 EU/dL Normal 0.2-1.0 EU/dL [facility] Comment on above: Order Comment: Speci men Type: URINE SPECIMEN [facility] Address: [address] [place] [address] Performed By: #### L [id number] #### [facility] CLIA [id number] [facility] [place] [address] [place] VITAMIN D 25 HYDROXYon 07-29 25-hydroxyvitamin D3 [Mass/Vol] 29.1 ng/mL Low 31.0-80.0 [facility] Comment on above: Order Comment: Speci men Type: BLOOD SPECIMENOrdering Facility: [facility] Address: [address] [place] [address] Result Comment: Clas sification of 25 [place] Vitamin D status: Deficiency/Insufficiency: < or = 30 ng/ml. Sufficiency/Optimal Levels: 31-80 ng/mL Toxicity: > 100 ng/mL. Test performed by chemiluminescent immunoassay. Performed By: #### V ITD ####[facility] LABCLIA [id number] [address] [place] HISTORY PHYSICALon HISTORY PHYSICAL HNO ID: [id number] Author: Prisca Van PA-C Service: ? Author Type: Physician Metal Or Wood Blocker Type: HANDP Filed: 07/26/2021 1:52 PM Note Text: [facility] This is a virtual visit. It required patient-provider interaction for the medical decision making as documented below. Patient has been identified by name and date of : Yes Reason for call: PACC visit Accompanied by: Self Patient name: Nehal Baig Scheduled Surgery: colonoscopy 07/31/2021 at [facility] CHIEF COMPLAINT: Patient presents with: Outpatient Colonoscopy [...] fevers. Neuro: No history of TIA's, stroke, [employer] tumor, impaired sensorium, hemiplegia, paraplegia or quadraplegia. No neurological symptoms or problems. Respiratory: No history of current cough or dyspnea, or pneumonia in the past 6 weeks. +asthma-uses Flovent daily, albuterol 3-5 times/week +JACOBY- BiPAP nightly +lung nodules Cardiovascular: No history of angina, CHF, [place], cardiac surgery or stents. Denies rest pain, [...] carotid puls (more content not included)... Normal [facility] CNOVon 07-25-2021 CNOV Office Visit ([facility] ) -- NEHAL BAIG ([id number]) 1970 M Date Time Provider Department 07/25/21 9:20 AM SALOME AGUILLON [facility] During your visit today, we recorded [...] further at follow-up Salome Aguillon APRN.LEODAN Aguillon APRN.[facility] 07/25/2021 9:43 AM Signed Bowel Preparation Instructions for: Golytely, Nulytely, Trilyte or Coly (more content not included)... Normal [facility] Ramez 07-25-2021 LEODANN Telephone ([facility]) -- ESSENCENEHAL GAN ([id number]) 1970 M Date Time Provider Department 07/25/21 SALOME AGUILLON [facility] During your visit today, we recorded the following information about you: Beatriz Cowan 07/25/2021 11:22 AM Signed [facility] states the Golytely is on backorder. They have the Newlytely in stock. Is it OK to substitute? Please advise. [phone]. 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 Additional eGFR calculator available at: http://www.eASIC.OHK Labs/multiple_crcl_2012.htm Performed By: #### C BC, BMPX ####[facility] [address] [place], [place] [phone] Director: Nate Stafford MD Anion gap [Moles/Vol] 11 mmol/L Normal 9-17 [facility] Comment on above: Performed By: #### C BC, BMPX ####[facility] [address] [place], [place] [phone] Director: Nate Stafford MD Calcium [Mass/Vol] 8.5 mg/dL Low 8.6-10.4 [facility] Comment on above: Performed By: #### C BC, BMPX ####[address] [address]([facility])[phone] Director: Nate Stafford MD Chloride [Moles/Vol] 101 mmol/L Normal 98-107 [facility] Comment on above: Performed By: #### C BC, BMPX ####[facility] [address] [place] [address] Lab Director: Nate Stafford MD CO2 [Moles/Vol] 23 mmol/L Normal 20-31 [facility] Comment on above: Performed By: #### C BC, BMPX ####[facility] [address] [place], [place] [phone] Director: Nate Stafford MD Creatinine [Mass/Vol] 0.62 mg/dL Low 0.70-1.20 [facility] Comment on above: Performed By: #### C BC, BMPX ####[facility] [address] [place], [place] [phone] Director: Nate Stafford MD GFR, Amer >60 Normal >60 [facility] Comment on above: Performed By: #### C BC, BMPX ####[facility] [address] [place] [address] Lab Director: Nate Stafford MD GFR,non Amer >60 Normal >60 [facility] Comment on above: Performed By: #### C BC, BMPX ####[facility] [address] [place], [place] [phone] Director: Nate Stafford MD Glucose [Mass/Vol] 120 mg/dL High 70-99 [facility] Comment on above: Performed By: #### C BC, BMPX ####[facility] [address] [place], [place] [phone] Director: Nate Stafford MD Potassium [Moles/Vol] 4.3 mmol/L Normal 3.7-5.3 [facility] Comment on above: Performed By: #### C BC, BMPX ####[facility] [address] [place], [place] [phone] Director: Nate Stafford MD Sodium [Moles/Vol] 135 mmol/L Normal 135-144 [facility] Comment on above: Performed By: #### C BC, BMPX ####[facility] [address] [place], [place] [phone] Director: Nate Stafford MD Urea nitrogen [Mass/Vol] 14 mg/dL Normal 6-20 [facility] Comment on above: Performed By: #### C BC, BMPX ####[facility] [address] [place], [place] [phone] Director: Nate Stafford MD BUN/CRE Ratio NOT REPORTED Normal 9-20 [facility] Comment on above: Performed By: #### C BC, BMPX ####[facility] [address] [place], [place] [phone] Director: Nate Stafford MD Staging: NOT REPORTED Normal [facility] Comment on above: Performed By: #### C BC, BMPX ####[facility] [address] [place] [address] lab Director: Nate Stafford MD Basic Metabolic Panel w/ Ref johnny to MGOrdered By: Halina Pathak on 08-02-2020 Anion gap [Moles/Vol] 11 mmol/L 9 - 17 mmol/L [employer] Phone: Calcium [Mass/Vol] 8.5 mg/dL Low 8.6 - 10. 4 mg/dL [employer] Phone: Chloride [Moles/Vol] 101 mmol/L 98 - 10 7 mmol/L [employer] Phone: CO2 [Moles/Vol] 23 mmol/L 20 - 31 mmol/L [employer] Phone: Creatinine [Mass/Vol] 0.62 mg/dL Low 0.70 - 1.20 mg/dL [employer] Phone: GFR >60 >60 mL/min [employer] Phone: GFR Non- >60 >60 mL/min [employer] Phone: GFR/1.73 sq M.predicted MDRD (S/P/Bld) [Vol rate/Area] [employer] Phone: Comment on above: Average GFR for 40-4 9 years old: 99 mL/min/1.73sq m Chronic Kidney Disease: <60 mL/min/1.73sq m Kidney failure: <15 mL/min/1.73sq m eGFR calculated using average adult body mass. Additional eGFR calculator available at: http://www.eASIC.OHK Labs/multiple_crcl_2012.htm GFR/1.73 sq M.predicted MDRD (S/P/Bld) [Vol rate/Area] NOT REPORTED [employer] Phone: Glucose [Mass/Vol] 120 mg/dL High 70 - 99 mg/dL [employer] Phone: Interpretation and review of laboratory results Abnormal [employer] Phone: Potassium [Moles/Vol] 4.3 mmol/L 3.7 - 5.3 mmol/L [employer] Phone: Sodium [Moles/Vol] 135 mmol/L 135 - 144 mmol/L [employer] Phone: Urea nitrogen (BldV) [Mass/Vol] 14 mg/dL 6 - 20 mg/dL [employer] Phone: Urea nitrogen/Creatinine (Bld) [Mass ratio] NOT REPORTED [employer] Phone: CBCon 08-02-2020 Erythrocyte distribution width (RBC) [Ratio] 13.0 % Normal 11.8-14.4 [facility] Comment on above: Performed By: #### C BC, BMPX ####[facility] [address] [place] [address] Lab Director: Nate Stafford MD Hematocrit (Bld) [Volume fraction] 41.8 % Normal 40.7-50.3 [facility] Comment on above: Performed By: #### C BC, BMPX ####[facility] [address] [place] [address] lab Director: Nate Stafford MD Hemoglobin (Bld) [Mass/Vol] 13.8 g/dL Normal 13.0-17.0 [facility] Comment on above: Performed By: #### C BC, BMPX ####[facility] [address] [place] [address] lab Director: Nate Stafford MD MCH (RBC) [Entitic mass] 29.3 pg Normal 25.2-33.5 [facility] Comment on above: Performed By: #### C BC, BMPX ####[facility] [address] [place], [place] [phone] Director: Nate Stafford MD MCHC (RBC) [Mass/Vol] 33.0 g/dL Normal 28.4-34.8 [facility] Comment on above: Performed By: #### C BC, BMPX ####[facility] [address] [place], [place] [phone] Director: Nate Stafford MD MCV (RBC) [Entitic vol] 88.7 fL Normal 82.6-102.9 [facility] Comment on above: Performed By: #### C BC, BMPX ####[facility] [address] [place], [place] [phone] Director: Nate Stafford MD NRBC Automated 0.0 per 100 WBC Normal 0.0 [facility] Comment on above: Performed By: #### C BC, BMPX ####[facility] [address] [place] [address] [phone] Director: Nate Stafford MD Platelet mean volume (Bld) [Entitic vol] 10.9 fL Normal 8.1-13.5 [facility] Comment on above: Performed By: #### C BC, BMPX ####[facility] [address] [place], [place] [phone] Director: Nate Stafford MD Platelets (Bld) [#/Vol] 221 10*3/uL Normal 138-453 [facility] Comment on above: Performed By: #### C BC, BMPX ####[facility] [address] [place], [place] [phone] Director: Nate Stafford MD RBC (Bld) [#/Vol] 4.71 10*6/uL Normal 4.21-5.77 [facility] Comment on above: Performed By: #### C BC, BMPX ####[facility] [address] [place], [place] [phone] Director: Nate Stafford MD WBC (Bld) [#/Vol] 10.6 10*3/uL Normal 3.5-11.3 [facility] Comment on above: Performed By: #### C BC, BMPX ####[facility] [address] [place] [address] lab Director: Nate Stafford MD CBCOrdered By: Halina Pathak on 08-02-2020 Hematocrit (Bld) [Volume fraction] 41.8 % 40.7 - 50.3 % [employer] Phone: Hemoglobin.gastroint estinal spec 1 Ql (Stl) 13.8 g/dL 13.0 - 17.0 g/dL [employer] Phone: MCH (RBC) [Entitic mass] 29.3 pg 25.2 - 33.5 pg [employer] Phone: MCHC (RBC) [Mass/Vol] 33.0 g/dL 28.4 - 34.8 g/dL [employer] Phone: MCV (RBC) [Entitic vol] 88.7 fL 82.6 - 102.9 fL [employer] Phone: NRBC Automated 0.0 0.0 per 100 WBC [employer] Phone: Platelet distribution width (Bld) [Ratio] 13.0 % 11.8 - 14.4 % [employer] Phone: Platelet mean volume (Bld) [Entitic vol] 10.9 fL 8.1 - 13.5 fL [employer] Phone: Platelets (Bld) [#/Vol] 221 10*3/uL [employer] Phone: RBC (Bld) [#/Vol] 4.71 10*6/uL 4.21 - 5.77 m/uL [employer] Phone: WBC (Bld) [#/Vol] 10.6 10*3/uL [facility] [employer] Work Phone: Trauma Profileon 08-02-2020 (cont.) Normal [facility] Comment on above: Result Comment: Aver age GFR for 40-49 years old: 99 mL/min/1.73sq m Chronic Kidney Disease: <60 mL/min/1.73sq m Kidney failure: <15 mL/min/1.73sq m eGFR calculated using average adult body mass. Additional eGFR calculator available at: http://www.PerSay/multiple_crcl_2012.htm Performed By: #### E RTPF, TROPI ####[facility] [address] [place], [place] [phone] Director: Nate Stafford MD Anion gap [Moles/Vol] 10 mmol/L Normal 9-17 [facility] Comment on above: Performed By: #### E RTPF, TROPI ####[facility] [address] [place] [address] [phone] Director: Nate Stafford MD Chloride [Moles/Vol] 100 mmol/L Normal 98-107 [facility] Comment on above: Performed By: #### E RTPF, TROPI ####[facility] [address] [place], [place] [phone] Director: Nate Stafford MD CO2 [Moles/Vol] 24 mmol/L Normal 20-31 [facility] Comment on above: Performed By: #### E RTPF, TROPI ####[facility] [address] [place], [place] [phone] Director: Nate Stafford MD Creatinine [Mass/Vol] 0.71 mg/dL Normal 0.70-1.20 [facility] Comment on above: Performed By: #### E RTPF, TROPI ####[facility] [address] [place], [place] [phone] Director: Nate Stafford MD Ethanol [Mass/Vol] mg/dL Normal <10 [facility] Comment on above: Performed By: #### E RTPF, TROPI ####[facility] [address] [place] [address] Lab Director: Nate Stafford MD Ethanol percent <0.010 Normal <0.010 [facility] Comment on above: Performed By: #### E RTPF, TROPI ####[facility] [address] [place] [address] Lab Director: Nate Stafford MD GFR, Amer >60 Normal >60 [facility] Comment on above: Performed By: #### E RTPF, TROPI ####[facility] [address] [place] [address] Lab Director: Nate Stafford MD GFR,non Amer >60 Normal >60 [facility] Comment on above: Performed By: #### E RTPF, TROPI ####[facility] [address] [place] [address] Lab Director: Nate Stafford MD Glucose [Mass/Vol] 109 mg/dL High 70-99 [facility] Comment on above: Performed By: #### E RTPF, TROPI ####[facility] [address] [place] [address] Lab Director: Nate Stafford MD Potassium [Moles/Vol] 4.2 mmol/L Normal 3.7-5.3 [facility] Comment on above: Performed By: #### E RTPF, TROPI ####[facility] [address] [place] [address] Lab Director: Nate Stafford MD Sodium [Moles/Vol] 134 mmol/L Low 135-144 [facility] Comment on above: Performed By: #### E RTPF, TROPI ####[facility] [address] [place] [address] lab Director: Nate Stafford MD Urea nitrogen [Mass/Vol] 15 mg/dL Normal 6-20 [facility] Comment on above: Performed By: #### E RTPF, TROPI ####[facility] [address] [place] [address] lab Director: Nate Stafford MD Troponinon 08-02-2020 Troponin, High Sens 6 ng/L Normal 0-22 [facility] Comment on above: Result Comment: High Sensitivity Troponin values cannot be compared with other Troponin methodologies. Patients with high levels of Biotin oral intake (i.e >5mg/day) may have falsely decreased Troponin levels. Samples collected within 8 hours of biotin intake may require additional information for diagnosis. Performed By: #### E RTPF TROPI ####[place] [place] [address] lab Director: Nate Stafford MD Type + Screenon 08-02-2020 Type + Screen Sample Expiration 08/04/2020,2359 Arm Band Number [id number] ABO/Rh(D) A NEGATIVE Antibody Screen NEGATIVE Normal [facility] Comment on above: Performed By: #### T YS ####[facility] [place] [address] lab Director: Nate Stafford MD CT CERVICAL [...] Johnny Smalls MD 08/01/20 Final result Normal [facility] CT CERVICAL SPINE WO CONTRAS TOrdered By: Ronnie Lund on 08-01-2020 C6-7 cervical spondy losis and degenerative disc disease. Evidence of paracervical spasm. No acute bony abnormalities are noted [employer] Work Phone: EXAMINATION: CT OF T HE [...] intact. The visualized lung apices are clear. [employer] Phone: Francisco, Mhpn Incoming R adiant Results From [employer] - 08/01/2020 7:04 PM EDT EXAMINATION: CT [...] spasm. No acute bony abnormalities are noted [employer] Phone: CT CHEST ABDOMEN PELVIS W CO [...] Elizabeth Shoemaker MD 08/01/20 Final result Normal [facility] CT CHEST ABDOMEN PELVIS W CO NTRASTOrdered [...] to Lung-RADS guidelines. Reference: Radiology. 2017; 284(1):228-43. [employer] Work Phone: EXAMINATION: CT OF T HE [...] hernia. Bones/Soft Tissues: No acute osseous abnormality. [employer] Work Phone: [place], Mhpn Incoming R adiant Results From [employer] - 08/01/2020 7:19 PM EDT EXAMINATION: CT [...] to Lung-RADS guidelines. Reference: Radiology. 2017; 284(1):228-43. [employer] Phone: CT HEAD WO CONTRASTon 2020 CT [...] Jarek Fernández MD 08/01/20 Final result Normal [facility] CT Head WO ContrastOrdered B y: Ronnie Lund on 08-01-2020 1. No acute intracra nial abnormality. [employer] Phone: EXAMINATION: CT OF T HE HEAD [...] clear. SOFT TISSUES/SKULL: The calvarium is intact. [employer] Phone: [place], Mhpn Incoming R adiant Results From [employer] - 08/01/2020 7:01 PM EDT EXAMINATION: CT [...] intact. IMPRESSION: 1. No acute intracranial abnormality. [employer] Phone: CT LUMBAR SPINE TRAUMA RECON STRUCTIONon [...] Johnny Smalls MD 08/01/20 Final result Normal [facility] CT THORACIC SPINE TRAUMA REC ONSTRUCTIONon 08-01-2020 [...] Johnny Smalls MD 08/01/20 Final result Normal [facility] Drug Scr, Abuse, Uron 2020 Amphetamine(s),Ur Negative Normal NEG [facility] Comment on above: Result Comment: (Positive cutoff 1000 ng/mL) Performed By: #### U AMIC, LOUIS #### [facility] [address] [place] [address] Inseam Leveler: Nate Stafford MD Barbiturate(s),Ur Negative Normal NEG [facility] Comment on above: Result Comment: (Positive cutoff 200 ng/mL) Performed By: #### U AMIC, LOUIS #### [employer] [address] [place] [address] Inseam Leveler: Nate Stafford MD Benzodiazepine(s) Negative Normal NEG [facility] Comment on above: Result Comment: (Positive cutoff 200 ng/mL) Performed By: #### U AMIC, LOUIS #### [facility] [address] [place] [address] Inseam Leveler: Nate Stafford MD Cannabinoid(s),Ur Negative Normal NEG [facility] Comment on above: Result Comment: (Positive cutoff 50 ng/mL) Performed By: #### U AMIC, LOUIS #### [employer] [address] [place] [address] Inseam Leveler: Nate Stafford MD Cocaine Metabolite Negative Normal NEG [facility] Comment on above: Result Comment: (Positive cutoff 300 ng/mL) Performed By: #### U AMIC, LOUIS #### [employer] [address] [place] [address] Inse[employer] Leveler: Nate Stafford MD Interpretive Info Assay provides medic al screening only. The absence of expected drug(s) and/or Normal [facility] Comment on above: Result Comment: meta bolite(s) may indicate diluted or adulterated urine, limitations of testing or timing of collection. Testing for legal purposes should be confirmed by another method. To request confirmation of test result, please call the lab within 7 days of sample submission. Performed By: #### U AMIC, LOUIS #### [facility] [address] [place] [address] Inse[employer] Leveler: Nate Stafford MD Methadone Ql (U) Negative Normal NEG [facility] Comment on above: Result Comment: (Positive cutoff 300 ng/mL) Performed By: #### U AMIC, LOUIS #### [facility] [address] [place] [address] Inseam Leveler: Nate Stafford MD Opiate(s), Ur Negative Normal NEG [facility] Comment on above: Result Comment: (Positive cutoff 300 ng/mL) Performed By: #### U AMIC, LOUIS #### [facility] [address] [place] [address] Inseam Leveler: Nate Stafford MD Oxycodone, Urine Negative Normal NEG [facility] Comment on above: Result Comment: (Positive cutoff 100 ng/mL) Performed By: #### U AMIC, LOUIS #### [facility] [address] [place] [address] Inse[employer] Leveler: Nate Stafford MD Phencyclidine, Ur Negative Normal NEG [facility] Comment on above: Result Comment: (Positive cutoff 25 ng/mL) Performed By: #### U AMIC, LOUIS #### [facility] [address] [place] [address] Inseam Leveler: Nate Stafford MD Buprenorphrine, Ur NOT REPORTED Normal NEG [facility] Comment on above: Performed By: #### U AMIC, LOUIS #### [facility] [address] [place] [address] Inseam Leveler: Nate Stafford MD MDMA, Urine NOT REPORTED Normal NEG [facility] Comment on above: Performed By: #### U AMIC, LOUIS #### [facility] [address] [place] [address] Inse[employer] Leveler: Nate Stafford MD Methamphetamine, Ur NOT REPORTED Normal NEG [facility] Comment on above: Performed By: #### U AMIC, LOUIS #### [facility] [address] [place], [place] [phone] Inseam Leveler: Nate Stafford MD Propoxyphene,Urine NOT REPORTED Normal NEG [facility] Comment on above: Performed By: #### U AMIC, LOUIS #### [facility] [address] [place] [address] Inseam Leveler: Nate Stafford MD Tricyclic antidepressants Screen Ql (U) NOT REPORTED Normal NEG [facility] Comment on above: Performed By: #### U AMIC, LOUIS #### [facility] [address] [place] [address] [phone] Inseam Leveler: Nate Stafford MD No Panel InformationOrdered By: [...] to body habitus but requires clinical correlation. [employer] Work Phone: EXAMINATION: TWO XRA Y VIEWS [...] may relate to swelling or body habitus. [employer] Phone: Francisco, Mhpn Incoming R adiant Results From [employer] - 08/01/2020 9:41 PM EDT EXAMINATION: TWO [...] to body habitus but requires clinical correlation. [employer] Phone: No Panel InformationOrdered By: Ronnie Lund on 08-01-2020 Degenerative disc di sease at L5-S1. No acute bony abnormalities are seen in the thoracic or lumbar spine [employer] Phone: EXAMINATION: CT OF T HE LUMBAR [...] SOFT TISSUES/RETROPERITONEUM: No paraspinal mass is seen. [employer] Work Phone: Francisco, Mhpn Incoming R adiant Results From [employer] - 08/01/2020 7:11 PM EDT EXAMINATION: CT [...] seen in the thoracic or lumbar spine [employer] Phone: TRAUMA PANELOrdered By: Carlos Pathak on 08-01-2020 Lawson Test Unable to perform te sting: No specimen received. [employer] Phone: Anion gap [Moles/Vol] 10 mmol/L 9 - 17 mmol/L [employer] Phone: aPTT Coag (Bld) [Time] 23.3 s [employer] Phone: Comment on above: IV Heparin Therapy Range: 48.6-77.8 Blood Bank Specimen BILL FOR SERVICES PERFORMED [employer] Phone: Carboxyhemoglobin Unable to perform te sting: No specimen received. % [employer] Phone: Chloride [Moles/Vol] 100 mmol/L 98 - 10 7 mmol/L [employer] Phone: CO2 [Moles/Vol] 24 mmol/L 20 - 31 mmol/L [employer] Phone: Creatinine [Mass/Vol] 0.71 mg/dL 0.70 - 1.20 mg/dL [employer] Work Phone: Ethanol [Mass/Vol] mg/dL <10 mg/dL [employer] Phone: Ethanol percent <0.010 <0.010 % [facility] Work Phone: FIO2 Unable to perform te sting: No specimen received. [employer] Phone: GFR >60 >60 mL/min [employer] Work Phone: GFR Non- >60 >60 mL/min [employer] Phone: GFR/1.73 sq M.predicted MDRD (S/P/Bld) [Vol rate/Area] [employer] Work Phone: Comment on above: Average GFR for 40-4 9 years old: 99 mL/min/1.73sq m Chronic Kidney Disease: <60 mL/min/1.73sq m Kidney failure: <15 mL/min/1.73sq m eGFR calculated using average adult body mass. Additional eGFR calculator available at: http://www.PerSay/multiple_crcl_2012.htm GFR/1.73 sq M.predicted MDRD (S/P/Bld) [Vol rate/Area] NOT REPORTED [employer] Phone: Glucose [Mass/Vol] 109 mg/dL High 70 - 99 mg/dL [employer] Work Phone: hCG Qual PATIENT IS MALE NEGATIVE [facility] Work Phone: HCO3, Venous Unable to perform te sting: No specimen received. 24.0 - 30.0 mmol/L [employer] Phone: Hematocrit (Bld) [Volume fraction] 42.3 % 40.7 - 50.3 % [employer] Work Phone: Hemoglobin.gastroint estinal spec 1 Ql (Stl) 14.2 g/dL 13.0 - 17.0 g/dL [employer] Phone: INR Coag (Bld) [Relative time] 1.0 {INR} [employer] Phone: Comment on above: Therapeutic Range: Moderate Anticoagulant Intensity: INR = 2.0-3.0 High Anticoagulant Intensity: INR = 2.5-3.5 Interpretation and review of laboratory results Abnormal [employer] Phone: MCH (RBC) [Entitic mass] 29.3 pg 25.2 - 33.5 pg [employer] Phone: MCHC (RBC) [Mass/Vol] 33.6 g/dL 28.4 - 34.8 g/dL [employer] Phone: MCV (RBC) [Entitic vol] 87.2 fL 82.6 - 102.9 fL [employer] Phone: Methemoglobin Unable to perform te sting: No specimen received. % [employer] Phone: Mode Unable to perform te sting: No specimen received. [employer] Phone: Negative Base Excess, Srikanth Unable to perform testing: No specimen received. 0.0 - 2.0 mmol/L [employer] Phone: NOTIFICATION Unable to perform te sting: No specimen received. [employer] Phone: NOTIFICATION TIME Unable to perform te sting: No specimen received. [employer] Phone: NRBC Automated 0.0 0.0 per 100 WBC [employer] Phone: O2 Device/Flow/% Unable to perform te sting: No specimen received. [employer] Phone: O2 Sat, Srikanth Unable to perform te sting: No specimen received. % [employer] Phone: Oxyhemoglobin Unable to perform te sting: No specimen received. 95.0 - 98.0 % [employer] Phone: pCO2, Srikanth Unable to perform te sting: No specimen received. [employer] Phone: pCO2, Srikanth, Temp Adj Unable to perform te sting: No specimen received. [employer] Phone: Peep/Cpap Unable to perform te sting: No specimen received. [employer] Phone: pH, Srikanth Unable to perform te sting: No specimen received. [employer] Phone: pH, Srikanth, Temp Adj Unable to perform te sting: No specimen received. [employer] Phone: Platelet distribution width (Bld) [Ratio] 12.9 % 11.8 - 14.4 % [employer] Phone: Platelet mean volume (Bld) [Entitic vol] 10.1 fL 8.1 - 13.5 fL [employer] Phone: Platelets (Bld) [#/Vol] 220 10*3/uL [employer] Phone: pO2, Srikanth Unable to perform te sting: No specimen received. [employer] Phone: pO2, Srikanth, Temp Adj Unable to perform te sting: No specimen received. [employer] Phone: Positive Base Excess, Srikanth Unable to perform testing: No specimen received. 0.0 - 2.0 mmol/L [employer] Phone: Potassium [Moles/Vol] 4.2 mmol/L 3.7 - 5.3 mmol/L [employer] Phone: PSV Unable to perform te sting: No specimen received. [employer] Phone: PT Coag (PPP) [Time] 10.4 s [employer] Phone: Pt Temp Unable to perform te sting: No specimen received. [employer] Phone: Pt. Position Unable to perform te sting: No specimen received. [employer] Phone: RBC (Bld) [#/Vol] 4.85 10*6/uL 4.21 - 5.77 m/uL [employer] Phone: Respiratory Rate Unable to perform te sting: No specimen received. [employer] Phone: Sample Site Unable to perform te sting: No specimen received. [employer] Phone: Set Rate Unable to perform te sting: No specimen received. [employer] Phone: Sodium [Moles/Vol] 134 mmol/L Low 135 - 144 mmol/L [employer] Phone: Text for Respiratory Unable to perform t esting: No specimen received. [employer] Phone: Total Hb Unable to perform te sting: No specimen received. 12.0 - 16.0 g/dl [employer] Phone: Total Rate Unable to perform te sting: No specimen received. [employer] Work Phone: Urea nitrogen (BldV) [Mass/Vol] 15 mg/dL 6 - 20 mg/dL [employer] Phone: VT Unable to perform te sting: No specimen received. [employer] Phone: WBC (Bld) [#/Vol] 14.1 10*3/uL High [employer] Phone: TYPE AND SCREENOrdered By: Ivonne Ba on 08-01-2020 ABO/Rh Negative [employer] Work Phone: Arm Band Number BE [id number] [facility] Work Phone: Expiration Date 08/04/2020,2359 [employer] Work Phone: Trauma Profileon 08-01-2020 aPTT Coag (Bld) [Time] 23.3 s Normal 20.5-30.5 [facility] Comment on above: Result Comment: IV Heparin Therapy Range: 48.6-77.8 Performed By: #### ISABEL CANELA ####[facility] CenterVirtual Telephone & TelegraphSauabgldxssm[address] [place] [address] lab Director: Nate Stafford MD INR Coag (PPP) [Relative time] 1.0 {INR} Normal [facility] Comment on above: Result Comment: Therapeutic Range: Moderate Anticoagulant Intensity: INR = 2.0-3.0 High Anticoagulant Intensity: INR = 2.5-3.5 Performed By: #### E RTPF, TROPI ####[facility] [address] [place] [address] Lab Director: Nate Stafford MD PT Coag (PPP) [Time] 10.4 s Normal 9.1-12.3 [facility] Comment on above: Performed By: #### E RTPF, TROPI ####[facility] [address] [place] [address] [phone] Director: Nate Stafford MD Erythrocyte distribution width (RBC) [Ratio] 12.9 % Normal 11.8-14.4 [facility] Comment on above: Performed By: #### E RTPF, TROPI ####[address] [address])[phone] Director: Nate Stafford MD Hematocrit (Bld) [Volume fraction] 42.3 % Normal 40.7-50.3 [facility] Comment on above: Performed By: #### E RTPF, TROPI ####[facility] [address] [place] [address])[phone] Director: Nate Stafford MD Hemoglobin (Bld)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 Teams (unrecognized sec tion and content) Draw Press Operator Relationship Specialty Start Date End Date Salome Aguillon, SALES AGENT PROTECTIVE SERVICE.PAINT SPRAYING MACHINE OPERATOR HELPER [address] [place] [place] [address] PCP - General Family Practice 11/23/19 Draw Press Operator Relationship Specialty Start Date End Date Salome Aguillon, SALES AGENT PROTECTIVE SERVICE.PAINT SPRAYING MACHINE OPERATOR HELPER [address] [place] [place] [address] PCP - General Family Practice 11/23/19 Draw Press Operator Relationship Specialty Start Date End Date Salome Aguillon, SALES AGENT PROTECTIVE SERVICE.PAINT SPRAYING MACHINE OPERATOR HELPER [address] [place] [address] PCP - General Family Practice 11/23/19 Draw Press Operator Relationship Specialty Start Date End Date Salome Aguillon, SALES AGENT PROTECTIVE SERVICE.PAINT SPRAYING MACHINE OPERATOR HELPER [address] [place] [address] PCP - General Family Practice 11/23/19 Draw Press Operator Relationship Specialty Start Date End Date ShehanSalome, SALES AGENT PROTECTIVE SERVICE.PAINT SPRAYING MACHINE OPERATOR HELPER [address] [place] [address] PCP - General Family Practice 11/23/19 Draw Press Operator Relationship Specialty Start Date End Date [facility] Salome, SALES AGENT PROTECTIVE SERVICE.PAINT SPRAYING MACHINE OPERATOR HELPER [address] [place] [address] PCP - General Family Practice 11/23/19 Draw Press Operator Relationship Specialty Start Date End Date [facility] SALES AGENT PROTECTIVE SERVICE.PAINT SPRAYING MACHINE OPERATOR HELPER [address] [place] [address] PCP - General Family Practice 11/23/19 Draw Press Operator Relationship Specialty Start Date End Date [facility] SALES AGENT PROTECTIVE SERVICE.PAINT SPRAYING MACHINE OPERATOR HELPER [address] [place] [address] PCP - General Family Practice 11/23/19 Draw Press Operator Relationship Specialty Start Date End Date [facility] SALES AGENT PROTECTIVE SERVICE.PAINT SPRAYING MACHINE OPERATOR HELPER [address] [place] [address] PCP - General Family Practice 11/23/19 Draw Press Operator Relationship Specialty Start Date End Date [facility] SALES AGENT PROTECTIVE SERVICE.PAINT SPRAYING MACHINE OPERATOR HELPER [address] [place] [address] PCP - General Family Practice 11/23/19 Draw Press Operator Relationship Specialty Start Date End Date [facility], SALES AGENT PROTECTIVE SERVICE.PAINT SPRAYING MACHINE OPERATOR HELPER [address] [place] [address] PCP - General Family Practice 11/23/19 Draw Press Operator Relationship Specialty Start Date End Date [facility] SALES AGENT PROTECTIVE SERVICE.PAINT SPRAYING MACHINE OPERATOR HELPER [address] [place] [address] PCP - General Family Practice 11/23/19 Draw Press Operator Relationship Specialty Start Date End Date [facility], SALES AGENT PROTECTIVE SERVICE.PAINT SPRAYING MACHINE OPERATOR HELPER [address] [place] [address] PCP - General Family Practice 11/23/19 Draw Press Operator Relationship Specialty Start Date End Date Salome Aguillon, SALES AGENT PROTECTIVE SERVICE.PAINT SPRAYING MACHINE OPERATOR HELPER [address] [place] [address] PCP - General Family Practice 11/23/19 Draw Press Operator Relationship Specialty Start Date End Date Salome Aguillon, SALES AGENT PROTECTIVE SERVICE.PAINT SPRAYING MACHINE OPERATOR HELPER [address] [place] [address] PCP - General Family Practice 11/23/19 Draw Press Operator Relationship Specialty Start Date End Date Salome Aguillon, SALES AGENT PROTECTIVE SERVICE.PAINT SPRAYING MACHINE OPERATOR HELPER [address] [place] [address] PCP - General Family Medicine 11/23/19 Draw Press Operator Relationship Specialty Start Date End Date Salome Aguillon, SALES AGENT PROTECTIVE SERVICE.PAINT SPRAYING MACHINE OPERATOR HELPER [address] [place] [address] PCP - General Family Medicine 11/23/19 Draw Press Operator Relationship Specialty Start Date End Date Salome Aguillon, SALES AGENT PROTECTIVE SERVICE.PAINT SPRAYING MACHINE OPERATOR HELPER [address] [place] [address] PCP - General Family Medicine 11/23/19 Draw Press Operator Relationship Specialty Start Date End Date Salome Aguillon, SALES AGENT PROTECTIVE SERVICE.PAINT SPRAYING MACHINE OPERATOR HELPER [address] [place] [address] PCP - General Family Medicine 11/23/19 Draw Press Operator Relationship Specialty Start Date End Date Salome Aguillon, SALES AGENT PROTECTIVE SERVICE.PAINT SPRAYING MACHINE OPERATOR HELPER [address] [place] [address] PCP - General Family Medicine 11/23/19 Draw Press Operator Relationship Specialty Start Date End Date Salome Aguillon, SALES AGENT PROTECTIVE SERVICE.PAINT SPRAYING MACHINE OPERATOR HELPER [address] [place] [address] PCP - General Family Medicine 11/23/19 Draw Press Operator Relationship Specialty Start Date End Date [facility] Salome, SALES AGENT PROTECTIVE SERVICE.PAINT SPRAYING MACHINE OPERATOR HELPER [address] [place] [address] PCP - General Family Medicine 11/23/19 Draw Press Operator Relationship Specialty Start Date End Date [facility] Salome, SALES AGENT PROTECTIVE SERVICE.PAINT SPRAYING MACHINE OPERATOR HELPER [address] [place] [address] PCP - General Family Medicine 11/23/19 Draw Press Operator Relationship Specialty Start Date End Date [facility] Salome, SALES AGENT PROTECTIVE SERVICE.PAINT SPRAYING MACHINE OPERATOR HELPER [address] [place] [address] PCP - General Family Medicine 11/23/19 Draw Press Operator Relationship Specialty Start Date End Date [facility] Salome, SALES AGENT PROTECTIVE SERVICE.PAINT SPRAYING MACHINE OPERATOR HELPER [address] [place] [address] PCP - General Family Medicine 11/23/19 Draw Press Operator Relationship Specialty Start Date End Date [facility] Salome, SALES AGENT PROTECTIVE SERVICE.PAINT SPRAYING MACHINE OPERATOR HELPER [address] [place] [address] PCP - General Family Medicine 11/23/19 Draw Press Operator Relationship Specialty Start Date End Date [facility] Salome, SALES AGENT PROTECTIVE SERVICE.PAINT SPRAYING MACHINE OPERATOR HELPER [address] [place] [address] PCP - General Family Medicine 11/23/19 Team Status: Active Member Role Status Dates Vonnie Guerrero NP-C Primary Care Provider Active Team Status: Inactive Member Role Status Dates Vonnie Guerrero NP-C Primary Care Provider Active HAIDER Beard Attending Provider Active Team Status: Inactive Member Role Status Dates Salome Aguillon , PUBLIC HEALTH ASSISTANT-C Primary Care Provider Acti tyler Yi NP-C Attending Provider Active Team Status: Inactive Member Role Status Dates Salome Aguillon , PUBLIC HEALTH ASSISTANT-C Primary Care Provider Acti tyler Quezada PUBLIC HEALTH ASSISTANT-C Attending Provider Active Team Status: Inactive Member [...] BE BASED ON THE PRIMARY CLINICAL RECORDS. [employer] [facility] [facility] provides no warranty or guarantee of the accuracy or completeness of information in this document.
== END 2023-06-20 08:17 | disposition home or self-care (01) ==
LOC: PM 08:17
PROVIDERS: PCP Nurse Practitioner; Visit Provider Nurse Practitioner
DX: M54.50 Low back pain, unspecified (principal); M47.26 Other spondylosis with radiculopathy, lumbar region; M79.18 Myalgia, other site; Z79.891 Long term (current) use of opiate analgesic
CPT/HCPCS: 96365; G0463; J3370

== ENCOUNTER 2023-06-20 08:45 | Inpatient (IN) | payer BC, SELFPAY ==
[2023-06-20] VITALS (21 sets, daily range): BP systolic 137–178; BP diastolic 68–103; PULSE 86–109; RESP 14–28; TEMP 36.4–36.7; O2SAT 90–98; BMI 47.8; BMI 47.4
--- NOTE | 2023-06-20 08:58 | ECG_ITS ---
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
--- NOTE | 2023-06-20 09:03 | ED.SOB1 ---
HPI - SOB/Dyspnea General Chief Complaint: Shortness of Breath/Dyspnea Stated Complaint: LOW SAT/SHORTNESS OF BREATH Time Seen by Provider: 06/20/23 08:48 Source: patient Mode of arrival: Wheelchair History of Present Illness HPI Narrative: Patient sent over from infusion center - the patient arrived complaining of shortness of breath and had experienced chest pain last night. His apparently just tested positive for Covid although the patient said he tested negative at home. Infusion center reported that the patient's RA O2 sat was only 77% when he arrived. They placed him on 2LPM NC O2 and his sat increased to 92%by the time he was brought to the ED. The patient was admitted 05/31/23 with bilateral pneumonia, elevated WBC and eventually grew Granulicatella adiacens on his blood cultures. he has been receiving IV Vancomycin through the infusion center. The vancomycin was started before he was brought to us. On questioning he admitted that he got very winded last night going up steps and walking from his car to the infusion center. he went to pain management today and also had a low pulse ox reading - high 70s at the office, he told me. Prior medical history includes obstructive sleep apnea, iron deficiency anemia, hypertension, hypercholesterolemia, chronic low back pain Related Data Home Medications ?Medication ?Instructions ?Recorded ?Confirmed acetaminophen 500 mg capsule 1,000 mg PO .Q12 PRN pain 01/28/23 06/06/23 ibuprofen 200 mg tablet (I-Prin) 800 mg PO Q12H 01/28/23 06/06/23 lisinopril 10 mg tablet 10 mg PO DAILY 01/28/23 06/06/23 omeprazole 20 mg capsule,delayed 20 mg PO DAILY 01/28/23 06/06/23 release aspirin 81 mg tablet,delayed 81 mg PO DAILY 02/24/23 06/06/23 release (Adult Aspirin Regimen) cholecalciferol (vitamin D3) 25 2,000 unit PO DAILY 02/24/23 06/06/23 mcg (1,000 unit) chewable tablet (VitaJoy Daily D) cyanocobalamin (vitamin B-12) 500 500 mcg PO DAILY 02/24/23 06/06/23 mcg tablet (B-12 DOTS) magnesium 250 mg tablet 500 mg PO DAILY 03/04/23 06/06/23 baclofen 10 mg tablet 10 mg PO BID 05/31/23 06/06/23 vitamin B complex (B 1 tab PO DAILY 06/06/23 06/06/23 Complex-Vitamin B12 tablet) Previous Rx's ?Medication ?Instructions ?Recorded lidocaine 5 % topical patch 1 patch topical Q24H #15 ea 05/29/23 (Lidoderm) hydrocodone 7.5 mg-acetaminophen 1 tab PO TID PRN pain #21 tabs 05/30/23 325 mg tablet naloxone 4 mg/actuation nasal 4 mg intranasal Q2M PRN opioid 06/12/23 spray (Narcan) overdose #1 ea hydrocodone 7.5 mg-acetaminophen 1 tab PO TID PRN pain #70 tabs 06/20/23 325 mg tablet Allergies Allergy/AdvReac Type Severity Reaction Status Date / Time No Known Drug Allergies Allergy Verified 05/31/23 07:21 [facility] Medical History Foot pain ?M79.673 - Pain in unspecified foot (ICD-10) Ankle pain ?M25.579 - Pain in unspecified ankle and joints of unspecified foot (ICD-10) Achilles tendinitis ?M76.60 - Achilles tendinitis, unspecified leg (ICD-10) Plantar fascial fibromatosis ?M72.2 - Plantar fascial fibromatosis (ICD-10) Migraine ?G43.909 - Migraine, unspecified, not intractable, without status migrainosus (ICD-10) GERD (gastroesophageal reflux disease) ?K21.9 - Gastro-esophageal reflux disease without esophagitis (ICD-10) Heartburn ?R12 - Heartburn (ICD-10) High cholesterol ?E78.00 - Pure hypercholesterolemia, unspecified (ICD-10) Calcaneal spur ?M77.30 - Calcaneal spur, unspecified foot (ICD-10) Strain of Achilles tendon ?S86.019A - Strain of unspecified Achilles tendon, initial encounter (ICD-10) Low back pain ?M54.50 - Low back pain, unspecified (ICD-10) Kidney stones ?N20.0 - Calculus of kidney (ICD-10) Sleep apnea ?G47.30 - Sleep apnea, unspecified (ICD-10) Hypertension ?I10 - Essential (primary) hypertension (ICD-10) Surgical History History of colonoscopy ?Z98.890 - Other specified postprocedural states (ICD-10) History of foot surgery ?Z98.890 - Other specified postprocedural states (ICD-10) H/O vasectomy (2014) ?Z98.52 - Vasectomy status (ICD-10) H/O shoulder replacement ?Z96.619 - Presence of unspecified artificial shoulder joint (ICD-10) History of carpal tunnel release ?Z98.890 - Other specified postprocedural states (ICD-10) Family History Grandmother Family history of CHF (congestive heart failure) Family history of COPD (chronic obstructive pulmonary disease) Mother Family history of COPD (chronic obstructive pulmonary disease) Family history of cancer Other Family history of lung cancer Social History Within the past year, how often did you have a drink containing alcohol: monthly or less Smoking status: Never smoker Non-prescribed substance use: denies use 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 Highest level of school completed/degree received: Bachelor's degree Are you now , , , , never or living with a partner: living with partner In a typical week, how many times do you talk on the telephone with family, friends, or neighbors: 3 or more times per week How often do you get together with friends or relatives: 3 or more times per week How often do you attend nondenominational or mormon services: never Do you belong to any clubs or organizations such as nondenominational groups unions, fraternal or athletic groups, or school groups: no Total score: 2 Score interpretation: A score of greater than or equal to 2 indicates the lowest level of social isolation. Little interest or pleasure in doing things: not at all Feeling down, depressed, or hopeless: not at all Feel stressed/tense/nervous/anxious/difficulty sleeping: not at all Exam Narrative Exam Narrative: Nurses notes and vital signs reviewed and patient Has 92% O2 sat on 2 L/min nasal cannula. afebrile General: Well-appearing and in no apparent distress. Skin: Warm, dry, no pallor noted. No rash. Eye: Pupils are equal, round and EOMI. No scleral icterus. Ears, Nose, Mouth, and Throat: Oral mucosa is moist Cardiovascular: Tachycardia. Respiratory: No accessory muscle use or respiratory distress. Lungs With diffuse rhonchi Musculoskeletal: normal ROM Neurological: A&O x4. No cranial nerve dysfunction observed. No truncal ataxia. Moves all extremities. Sensation intact. Psychiatric: Cooperative and interactive. Normal mood and affect. Constitutional Vital Signs, click to edit/add: Last Vital Signs Temp 98.0 F 06/20/23 11:22 Pulse 88 06/20/23 10:30 Resp 14 06/20/23 10:10 BP 137/91 06/20/23 08:52 Pulse Ox 96 06/20/23 10:30 O2 Del Method Nasal Cannula 06/20/23 08:59 O2 Flow Rate 2 06/20/23 08:59 Course Vital Signs Vital signs: Vital Signs Pulse Rate 109 H 06/20/23 08:48 Respiratory Rate 22 06/20/23 08:48 Blood Pressure 137/103 H 06/20/23 08:48 Pulse Oximetry 92 L 06/20/23 08:48 Oxygen Delivery Method Nasal Cannula 06/20/23 08:48 Oxygen Delivery Flow Rate 2 06/20/23 08:48 Temperature 98.0 F 06/20/23 11:22 Pulse Rate 88 06/20/23 10:30 Respiratory Rate 14 06/20/23 10:10 Blood Pressure 137/91 06/20/23 08:52 Pulse Oximetry 96 06/20/23 10:30 Oxygen Delivery Method Nasal Cannula 06/20/23 08:59 Oxygen Delivery Flow Rate 2 06/20/23 08:59 MDM - SOB/Dyspnea MDM Narrative Medical decision making narrative: Patient was Continued on nasal cannula oxygen on arrival. He was placed on cardiac monitor technician and EKG obtained. Blood drawn and sent for evaluation, Including blood cultures, procalcitonin and lactate per sepsis protocol. Swabs for COVID and influenza were obtained. Portable chest x-ray obtained. He was given an albuterol treatment. CBC = WBC normal but left shift noted. Negative lactate. normal coags, normal Troponin and BNP, unremarkable CMP. Influenza and covid were negative. resp panel also negative. CXR = multifocal pneumonia vs pulmonary edema. CTA chest - pneumonia, no PE. I ordered him to receive Levaquin for additional coverage. Dr Parish agreed to admit him after we reviewed the patient's case. He told me that the patient had TT Echo that had limited view of the valves so he is scheduled to get JUDY next week. Patient understands need for admission. Lab Data Attestation: I reviewed the patient's lab results. Labs: Lab Results 06/20/23 06/20/23 06/20/23 Range/Units 09:05 09:14 09:48 WBC 10.9 (4.0-11.0) 10^3/uL RBC 4.22 L (4.70-6.10) 10^6/uL Hgb 12.1 L (14.0-18.0) g/dL Hct 38.8 L (42.0-54.0) % MCV 91.9 (80.0-94.0) fL MCH 28.7 (25.9-34.0) pg MCHC 31.2 (29.9-35.2) g/dL RDW 16.0 H (11.0-15.0) % Plt Count 112 L (150-450) 10^3/uL MPV 10.1 (9.5-13.5) fL Neut % (Auto) 89.2 H (43.0-75.0) % Lymph % (Auto) 6.2 L (20.5-60.0) % Haakon % (Auto) 3.3 (1.7-12.0) % Eos % (Auto) 0.6 L (0.9-7.0) % Baso % (Auto) 0.4 (0.2-2.0) % Neut # (Auto) 9.7 H (1.4-6.5) 10^3/uL Lymph # (Auto) 0.7 L (1.2-3.8) 10^3/uL Haakon # (Auto) 0.4 (0.3-0.8) 10^3/uL Eos # (Auto) 0.1 (0.0-0.7) 10^3/uL Baso # (Auto) 0.0 (0.0-0.1) 10^3/uL Abs Immat Gran (auto) 0.03 (0.00-0.03) 10^3/uL Imm/Tot Granulo (auto) 0.3 (0.0-0.5) % PT 10.1 (9.0-11.6) sec INR 0.95 APTT 26.3 (22.3-36.2) sec Sodium 139 (136-145) mmol/L Potassium 4.6 (3.5-5.1) mmol/L Chloride 102 (98-107) mmol/L Carbon Dioxide 26.2 (21.0-32.0) mmol/L Anion Gap 15.4 BUN 19.0 H (7.0-18.0) mg/dL Creatinine 0.92 (0.70-1.30) mg/dL Est GFR ( Amer) >60 (>=60) Est GFR (Non-Af Amer) >60 (>=60) BUN/Creatinine Ratio 20.7 Glucose 114 H (74-106) mg/dL Lactate 1.2 (0.4-2.0) mmol/L Calcium 8.8 (8.5-10.1) mg/dL Total Bilirubin 0.6 (0.2-1.0) mg/dL AST 12 L (15-37) U/L ALT 25 (16-63) U/L Alkaline Phosphatase 54 (46-116) U/L Troponin I High Sens 10.9 (4.0-76.1) pg/mL NT-Pro-B Natriuret Pep 351.0 (<=900.0) pg/mL Total Protein 6.5 (6.4-8.2) g/dL Albumin 3.4 (3.4-5.0) g/dL Globulin 3.1 g/dL Albumin/Globulin Ratio 1.1 Procalcitonin <0.05 (0.00-0.50) ng/mL Urine Color (YELLOW) Urine Clarity (CLEAR) Urine pH (5.0-9.0) Ur Specific [place] (1.005-1.025) Urine Protein (NEG/TRACE) mg/dL Urine Glucose (UA) (NEGATIVE) mg/dL Urine Ketones (NEGATIVE) mg/dL Urine Occult Blood (NEGATIVE) Urine Nitrite (NEGATIVE) Urine Bilirubin (NEGATIVE) Urine Urobilinogen (0.2-1.0) EU/dL Ur Leukocyte Esterase (NEGATIVE) Adenovirus (PCR) Not detected (NOT DETECTE) C. pneumoniae DNA (PCR) Not detected (NOT DETECTE) Coronavirus Type OC43 Not detected (NOT DETECTE) Coronavirus Type HKU1 Not detected (NOT DETECTE) Coronavirus Type 229E Not detected (NOT DETECTE) Coronavirus Type NL63 Not detected (NOT DETECTE) Human Metapneumovir PCR Not detected (NOT DETECTE) Influenza Type A Ag Negative Influenza Type B Ag Negative M. pneumoniae (PCR) Not detected (NOT DETECTE) Parainfluenza PCR Not detected (NOT DETECTE) Parainfluenza 2 (PCR) Not detected (NOT DETECTE) Parainfluenza 3 (PCR) Not detected (NOT DETECTE) Parainfluenza 4 (PCR) Not detected (NOT DETECTE) RSV (RT-PCR) Not detected (NOT DETECTE) Entero/Rhino (PCR) Not detected (NOT DETECTE) SARS-CoV-2 (PCR) Not detected (NOT DETECTE) SARS-CoV-2 Ag (CV2AG) Negative (NEGATIVE) Bordetella pertussis (PCR) Not detected (NOT DETECTE) B parapertussis DNA PCR Not detected (NOT DETECTE) Influenza Type A (PCR) Not detected (NOT DETECTE) Influenza Type B (PCR) Not detected (NOT DETECTE) 06/20/23 Range/Units 10:28 WBC (4.0-11.0) 10^3/uL RBC (4.70-6.10) 10^6/uL Hgb (14.0-18.0) g/dL Hct (42.0-54.0) % MCV (80.0-94.0) fL MCH (25.9-34.0) pg MCHC (29.9-35.2) g/dL RDW (11.0-15.0) % Plt Count (150-450) 10^3/uL MPV (9.5-13.5) fL Neut % (Auto) (43.0-75.0) % Lymph % (Auto) (20.5-60.0) % Haakon % (Auto) (1.7-12.0) % Eos % (Auto) (0.9-7.0) % Baso % (Auto) (0.2-2.0) % Neut # (Auto) (1.4-6.5) 10^3/uL Lymph # (Auto) (1.2-3.8) 10^3/uL Haakon # (Auto) (0.3-0.8) 10^3/uL Eos # (Auto) (0.0-0.7) 10^3/uL Baso # (Auto) (0.0-0.1) 10^3/uL Abs Immat Gran (auto) (0.00-0.03) 10^3/uL Imm/Tot Granulo (auto) (0.0-0.5) % PT (9.0-11.6) sec INR APTT (22.3-36.2) sec Sodium (136-145) mmol/L Potassium (3.5-5.1) mmol/L Chloride (98-107) mmol/L Carbon Dioxide (21.0-32.0) mmol/L Anion Gap BUN (7.0-18.0) mg/dL Creatinine (0.70-1.30) mg/dL Est GFR ( Amer) (>=60) Est GFR (Non-Af Amer) (>=60) BUN/Creatinine Ratio Glucose (74-106) mg/dL Lactate (0.4-2.0) mmol/L Calcium (8.5-10.1) mg/dL Total Bilirubin (0.2-1.0) mg/dL AST (15-37) U/L ALT (16-63) U/L Alkaline Phosphatase (46-116) U/L Troponin I High Sens (4.0-76.1) pg/mL NT-Pro-B Natriuret Pep (<=900.0) pg/mL Total Protein (6.4-8.2) g/dL Albumin (3.4-5.0) g/dL Globulin g/dL Albumin/Globulin Ratio Procalcitonin (0.00-0.50) ng/mL Urine Color Lt. yellow (YELLOW) Urine Clarity Clear (CLEAR) Urine pH 6.5 (5.0-9.0) Ur Specific [place] 1.010 (1.005-1.025) Urine Protein Negative (NEG/TRACE) mg/dL Urine Glucose (UA) Negative (NEGATIVE) mg/dL Urine Ketones Negative (NEGATIVE) mg/dL Urine Occult Blood Negative (NEGATIVE) Urine Nitrite Negative (NEGATIVE) Urine Bilirubin Negative (NEGATIVE) Urine Urobilinogen 0.2 (0.2-1.0) EU/dL Ur Leukocyte Esterase Negative (NEGATIVE) Adenovirus (PCR) (NOT DETECTE) C. pneumoniae DNA (PCR) (NOT DETECTE) Coronavirus Type OC43 (NOT DETECTE) Coronavirus Type HKU1 (NOT DETECTE) Coronavirus Type 229E (NOT DETECTE) Coronavirus Type NL63 (NOT DETECTE) Human Metapneumovir PCR (NOT DETECTE) Influenza Type A Ag Influenza Type B Ag M. pneumoniae (PCR) (NOT DETECTE) Parainfluenza PCR (NOT DETECTE) Parainfluenza 2 (PCR) (NOT DETECTE) Parainfluenza 3 (PCR) (NOT DETECTE) Parainfluenza 4 (PCR) (NOT DETECTE) RSV (RT-PCR) (NOT DETECTE) Entero/Rhino (PCR) (NOT DETECTE) SARS-CoV-2 (PCR) (NOT DETECTE) SARS-CoV-2 Ag (CV2AG) (NEGATIVE) Bordetella pertussis (PCR) (NOT DETECTE) B parapertussis DNA PCR (NOT DETECTE) Influenza Type A (PCR) (NOT DETECTE) Influenza Type B (PCR) (NOT DETECTE) Imaging Data Chest x-ray: Radiologist's impression: ITS Impressions Chest X-Ray 06/20/23 09:28 IMPRESSION: 1. Moderate diffuse bilateral pulmonary infiltrates favoring pulmonary edema; increased compared to prior study. Multifocal pneumonia is felt less likely. Electronically authenticated by: JAYY GIVENS Date: 06/20/2023 09:48 Chest CTA 06/20/23 10:06 IMPRESSION: 1. No pulmonary embolism. 2. Marked bilateral pulmonary infiltrates and interstitial septal thickening suggestive of pulmonary edema. Pneumonitis is not excluded. 3. Small bilateral pleural effusions. Electronically authenticated by: JAYY GIVENS Date: 06/20/2023 11:23 ECG Data Attestation: I personally reviewed and interpreted this ECG as follows: Interpretation: EKG interpretation: Emergency Department physician interpretation. Sinus tachycardia at 105bpm. Moderate right axis deviation, normal intervals and no ST segment elevation or depression. Discharge Plan Discharge Chief Complaint: Shortness of Breath/Dyspnea Clinical Impression: Community acquired pneumonia, Hypoxia Patient Disposition: Admitted as Observation Time of Disposition Decision: 11:04 Prescriptions / Home Meds: No Action aspirin [Adult Aspirin Regimen] 81 mg tablet,delayed release (DR/EC) 81 mg PO DAILY cyanocobalamin (vitamin B-12) [B-12 DOTS] 500 mcg tablet 500 mcg PO DAILY cholecalciferol (vitamin D3) [VitaJoy Daily D] 25 mcg (1,000 unit) tablet,chewable 2,000 unit PO DAILY lidocaine [Lidoderm] 5 % adhesive patch,medicated 1 patch topical Q24H Qty: 15 0RF Rx Instructions: leave on most painful area for up to 12 hrs hydrocodone-acetaminophen 7.5-325 mg tablet 1 tab PO TID PRN (Reason: pain) Qty: 21 0RF naloxone [Narcan] 4 mg/actuation spray,non-aerosol 4 mg intranasal Q2M PRN (Reason: opioid overdose) Qty: 1 0RF Rx Instructions: spray 1 dose into ONE nostril; alternate nostrils w each dose until help arrives baclofen 10 mg tablet 10 mg PO BID vitamin B complex [B Complex-Vitamin B12] Tablet 1 tab PO DAILY lisinopril 10 mg tablet 10 mg PO DAILY omeprazole 20 mg capsule,delayed release(DR/EC) 20 mg PO DAILY acetaminophen 500 mg capsule 1,000 mg PO .Q12 PRN (Reason: pain) ibuprofen [I-Prin] 200 mg tablet 800 mg PO Q12H magnesium 250 mg tablet 500 mg PO DAILY hydrocodone-acetaminophen 7.5-325 mg tablet 1 tab PO TID PRN (Reason: pain) Qty: 70 0RF Print Language: Trinidadian Referrals: [facility] [Nurse Practitioner] - 1 week
[2023-06-20] MEDS: 0.9 % SODIUM CHLORIDE 1,000 ML 1000 ML IV (09:28)
--- NOTE | 2023-06-20 09:28 | XR_ITS ---
The [address] [address] Patient Name: NEHAL BAIG MRN: [id number] date: 1970 Sex: M Assigned Patient Location: ED.MAIN Current Patient Location: ER Accession/Order Number: [id number] Exam Date: 06/20/2023 09:20 Report Date: 06/20/2023 09:48 At the request of: LAISHA GUZMAN Procedure: XR chest 1V EXAMINATION: XR chest 1V HISTORY: shortness of breath COMPARISON: XR chest 05/31/2023 FINDINGS: LUNGS: Mild haziness of the parenchyma bilaterally with coarsening of interstitial markings and mild peripheral septal thickening. VASCULATURE: No increased pulmonary vasculature. PLEURA: No pneumothorax, effusion, or pleural thickening. CARDIAC: No cardiomegaly or cardiac silhouette abnormality. MEDIASTINUM: No visible mass or adenopathy. BONES: No fracture or visible bone lesion. OTHER: Right PICC line with distal tip in superior vena cava near the cavoatrial junction. XR/XR chest 1V IMPRESSION: 1. Moderate diffuse bilateral pulmonary infiltrates favoring pulmonary edema; increased compared to prior study. Multifocal pneumonia is felt less likely. Electronically authenticated by: JAYY GIVENS Date: 06/20/2023 09:48
--- NOTE | 2023-06-20 09:38 | PC.NURSE ---
pt sent to er from [facility] infusion center with PIC line already in place in right upper arm. Pt vancomycin infusing at time of arrival.
[2023-06-20 09:44] LABS: Basophils Percent Auto 0.4 % (0.2-2.0); Eosinophils Absolute Auto 0.1 10^3/uL (0.0-0.7); Eosinophils Percent Auto 0.6 % (0.9-7.0); Hematocrit 38.8 % (42.0-54.0); Hemoglobin 12.1 g/dL (14.0-18.0); Immature Granulocytes Abs Auto 0.03 10^3/uL (0.00-0.03); Immature Granulocytes Pct Auto 0.3 % (0.0-0.5); Lymphocytes Absolute Auto 0.7 10^3/uL (1.2-3.8); Lymphocytes Percent Auto 6.2 % (20.5-60.0); Mean Corpuscular HGB Conc 31.2 g/dL (29.9-35.2); Mean Corpuscular Hemoglobin 28.7 pg (25.9-34.0); Mean Corpuscular Volume 91.9 fL (80.0-94.0); Mean Platelet Volume 10.1 fL (9.5-13.5); Monocytes Absolute Auto 0.4 10^3/uL (0.3-0.8); Monocytes Percent Auto 3.3 % (1.7-12.0); Neutrophils Absolute Auto 9.7 10^3/uL (1.4-6.5); Neutrophils Percent Auto 89.2 % (43.0-75.0); Platelet Count 112 10^3/uL (150-450); Red Blood Count 4.22 10^6/uL (4.70-6.10); White Blood Count 10.9 10^3/uL (4.0-11.0)
[2023-06-20 09:51] LABS: Lactate/Lactic Acid 1.2 mmol/L (0.4-2.0)
[2023-06-20 09:56] LABS: Alanine Aminotransferase 25 U/L (16-63); Albumin Globulin Ratio 1.1; Albumin Level 3.4 g/dL (3.4-5.0); Alkaline Phosphatase 54 U/L (46-116); Anion Gap 15.4; Aspartate Amino Transferase 12 U/L (15-37); BUN Creatinine Ratio 20.7; Bilirubin Total 0.6 mg/dL (0.2-1.0); Calcium 8.8 mg/dL (8.5-10.1); Carbon Dioxide 26.2 mmol/L (21.0-32.0); Chloride 102 mmol/L (98-107); Estimated GFR (African America >60 (>=60); Estimated GFR (Non-African Ame >60 (>=60); Globulin 3.1 g/dL; Glucose 114 mg/dL (74-106); Potassium 4.6 mmol/L (3.5-5.1); Sodium 139 mmol/L (136-145); Total Protein 6.5 g/dL (6.4-8.2); Troponin I High Sensitivity 10.9 pg/mL (4.0-76.1)
[2023-06-20 10:05] LABS: Influenza Virus A Antigen Negative; Influenza Virus B Antigen Negative; Internal Control Within Normal Limits; SARS-CoV-2 Ag NEGATIVE (NEGATIVE)
--- NOTE | 2023-06-20 10:06 | CT_ITS ---
[address] [address] Patient Name: NEHAL BAIG MRN: [id number] date: 1970 Sex: M Assigned Patient Location: ER Current Patient Location: Accession/Order Number: [id number] Exam Date: 06/20/2023 10:40 Report Date: 06/20/2023 11:23 At the request of: LAISHA GUZMAN Procedure: CT angio chest EXAMINATION: CT angio chest HISTORY: hypoxia COMPARISON: No relevant comparison available. TECHNIQUE: Multi-planar CT images were created with IV contrast. Axial, Coronal, and Sagittal images. Dose reduction techniques were achieved by using automated exposure control and/or adjustment of mA and/or kV according to patient size and/or use of iterative reconstruction technique. 3-D reconstruction was performed on a separate workstation. FINDINGS: VASCULATURE: No pulmonary embolism or abnormal opacity. LUNGS: Dense patchy and confluent opacities throughout the lungs. Prominent interstitial septal thickening. PLEURA: Small bilateral pleural effusions, 7 mm in thickness bilaterally. VANDANA: Mild right hilar adenopathy. MEDIASTINUM: Mild adenopathy. CARDIAC: No enlargement, pericardial effusion, or pericardial thickening. AORTA: No aneurysm or dissection. CHEST WALL: No mass or axillary adenopathy. BONES: No bone lesion or fracture. LIMITED ABDOMEN: No suspicious findings. Limited images of the upper abdomen. OTHER: Negative. CT/CT angio chest IMPRESSION: 1. No pulmonary embolism. 2. Marked bilateral pulmonary infiltrates and interstitial septal thickening suggestive of pulmonary edema. Pneumonitis is not excluded. 3. Small bilateral pleural effusions. Electronically authenticated by: JAYY GIVENS Date: 06/20/2023 11:23
[2023-06-20 10:12] LABS: INR 0.95; Partial Thromboplastin Time 26.3 sec (22.3-36.2); Prothrombin Time 10.1 sec (9.0-11.6)
[2023-06-20 10:45] LABS: PROCALCITONIN <0.05 ng/mL (0.00-0.50)
[2023-06-20 10:46] LABS: Bilirubin Urine NEGATIVE (NEGATIVE); Blood Urine NEGATIVE (NEGATIVE); Clarity Urine CLEAR (CLEAR); Color Urine LT. YELLOW (YELLOW); Glucose Urine UA NEGATIVE (NEGATIVE); Ketones Urine NEGATIVE (NEGATIVE); Leukocyte Esterase Urine NEGATIVE (NEGATIVE); Nitrite Urine NEGATIVE (NEGATIVE); Protein Urine NEGATIVE (NEG/TRACE); Urobilinogen Urine 0.2 EU/dL (0.2-1.0); pH Urine 6.5 (5.0-9.0)
[2023-06-20 10:47] LABS: Urine Microscopic Indicated NO
[2023-06-20 11:07] LABS: Adenovirus NOT DETECTED (NOT DETECTE); Bordetella parapertussis NOT DETECTED (NOT DETECTE); Coronavirus 229E NOT DETECTED (NOT DETECTE); Coronavirus HKU1 NOT DETECTED (NOT DETECTE); Coronavirus NL63 NOT DETECTED (NOT DETECTE); Coronavirus OC43 NOT DETECTED (NOT DETECTE); Human Metapneumovirus NOT DETECTED (NOT DETECTE); Human Rhinovirus/Enterovirus NOT DETECTED (NOT DETECTE); Influenza A NOT DETECTED (NOT DETECTE); Influenza B NOT DETECTED (NOT DETECTE); Mycoplasma pneumoniae NOT DETECTED (NOT DETECTE); Parainfluenza Virus 1 NOT DETECTED (NOT DETECTE); Parainfluenza Virus 2 NOT DETECTED (NOT DETECTE); Parainfluenza Virus 3 NOT DETECTED (NOT DETECTE); Parainfluenza Virus 4 NOT DETECTED (NOT DETECTE); Respiratory Syncytial Virus NOT DETECTED (NOT DETECTE); SARS-CoV-2 NOT DETECTED (NOT DETECTE)
[2023-06-20] MEDS: LEVOFLOXACIN IN DEXTROSE 5 % 750 MG/150 ML IV.SOLN 100 MG IV (12:15)
--- NOTE | 2023-06-20 13:02 | CA_ITS ---
Patient Name: NEHAL BAIG MR#: [id number] : 1970 Exam Date: 06/20/2023 Ordering Doctor: DR Demetrius Parish . ECHOCARDIOGRAM REPORT PROCEDURE: CA ECHO DOPPLER COMPLETE INDICATIONS: Dyspnea COMPARISON: None. DESCRIPTION: COMPLETE ECHOCARDIOGRAM Real-time transthoracic echocardiography with 2D, M-mode, spectral and color flow Doppler performed. QUALITY: Technical quality was adequate. LEFT VENTRICLE: Normal chamber size. Normal left ventricular wall thickness. LV EF: Global left ventricular systolic function is normal. Calculated left ventricular ejection fraction is 63%. No wall motion abnormalities. DIASTOLIC: Normal diastolic function. ATRIAL SEPTUM: Inadequately seen. LEFT ATRIUM: Mild dilatation. RIGHT ATRIUM: Moderate dilatation. RIGHT VENTRICLE: Moderate dilatation. Normal right ventricular systolic function. TRICUSPID VALVE: Normal mobility and thickness. No stenosis with trivial regurgitation. No evidence of pulmonary hypertension. RVSP 25mmHg MITRAL VALVE: Mildly thickened with normal mobility. No evidence of mitral valve stenosis. There is no mitral annular calcification. Mild mitral regurgitation. AORTIC VALVE: Normal trileaflet appearance. No visible sclerosis. Normal leaflet mobility. No evidence of aortic valve stenosis. A mobile, echogenic structure is seen on the aortic valve; differential includes vegetation, thrombus, focal calcium vs other. Mild aortic regurgitation. AORTIC ROOT: Normal diameter and appearance. PULMONIC VALVE: Normal thickness and mobility. No stenosis. Trivial regurgitation. PERICARDIUM: No evidence of pericardial effusion. IVC: Collapses with inspirations. Mild dilatation measuring 2.3cm. CONCLUSION: 1. Global left ventricular systolic function is normal; estimated ejection fraction is 60 to 65% 2. The right ventricle is enlarged with normal systolic function 3. Normal diastolic function 4. Biatrial enlargement 5. Mild mitral regurgitation 6. Mild aortic valve regurgitation 7. A mobile, echogenic structure is seen on the aortic valve; differential diagnosis includes vegetation, thrombus, calcification versus other - recommend a transesophageal echocardiogram for further assessment Adult Echocardiography Procedure Report Left Ventricle LVEDD (3.7 - 5.6 cm): 6.05 cm LVESD (2.2 - 4.0 cm): 4.54 cm LVIVS thickness (0.6 - 1.2 cm): 0.87 cm LVPW thickness (0.5 - 1.0 cm): 0.79 cm e': 0.13 m/s E - e': 6.95 LVOT Max Gradient: 7.34 mm[Hg] LVOT Area (cm2): 1.35 m/s Peak Velocity (LVOT): 1.35 m/s Mean Velocity (LVOT): 0.93 m/s LVOT Diameter 2.14 cm Left Ventricular Ejection Fraction: 63.25 % Left Atrium LA Volume Index (2D A2C): 37.59 ml/m2 Left Atrium Systolic Dimension: 4.07 cm Mitral Valve MV E to A Ratio: 1.71 Mitral Valve A-Wave Peak Velocity: 0.54 m/s Mitral Valve E-Wave Peak Velocity: 0.93 m/s Right Ventricle RV Internal Diastolic Dimension: 4.36 cm Aorta AO Root Diam: 3.31 cm Ascending Ao Diam: 3.78 cm Aortic Valve AoV Area (Peak Derik): 2.28 cm2, 2.28 cm2 AoV Area (VTI): 2.47 cm2, 2.47 cm2 Deceleration [place]: 3.59 m/s2 Pressure Half-Time: 303.17 ms Peak Velocity(Antegrade Flow): 2.14 m/s Peak Gradient(Antegrade Flow): 18.27 mm[Hg] Mean Velocity(Antegrade Flow): 1.52 m/s Mean Gradient(Antegrade Flow): 10.03 mm[Hg] Velocity Time Integral: 42.40 cm Tricuspid Valve Peak Velocity (Regurgitant Flow): 1.88 m/s, 1.34 m/s, 2.10 m/s Pulmonic Valve Peak Velocity: 0.73 m/s Peak Gradient: 2.10 mm[Hg] Right Atrium Right Atrium Systolic Pressure: 87.53 ml, 87.53 ml Dictated by: Zina Carter M.D. on 06/20/2023 at 15:49 Approved by: Zina Carter M.D. on 06/20/2023 at 15:58
[2023-06-20 13:48] LABS: C Reactive Protein 0.67 mg/dL (<=0.50)
[2023-06-20 13:55] LABS: Troponin I High Sensitivity 13.1 pg/mL (4.0-76.1)
[2023-06-20 14:25] LABS: Erythrocyte Sedimentation Rate 17 mm/hr (<=20)
[2023-06-20 14:29] LABS: Lactate/Lactic Acid 1.4 mmol/L (0.4-2.0)
[2023-06-20] MEDS: CEFTAZIDIME 2,000 MG in 0.9 % SODIUM CHLORIDE 100 ML 200 MG IV (15:09)
[2023-06-20] MEDS: IPRATROPIUM/ALBUTEROL SULFATE 3 ML AMPUL.NEB IH (16:37)
[2023-06-20] MEDS: ACETAMINOPHEN 500 MG TABLET 1000 MG PO (17:14)
--- NOTE | 2023-06-20 17:35 | P.HP_ITS ---
HPI H&P: HPI History of Present Illness Chief complaint: HYPOXIA/PNEUMONITIS Narrative: Patient presented to the emergency room after found to have O2 saturations in the mid 70s. In ER CTA showed pulmonary embolism, did have some possible pulmonary edema, BNP was negative however though high-sensitivity troponin also negative. Possible pneumonia. Admitted for same. Opioid HPI Opioid Management Most Recent Opioid Data: Last Pain Intensity 3 06/20/23 14:22 Last Pain Assessment 06/20/23 17:00 Last MAR Pain Assessment 06/20/23 17:14 Last ORT Total Score 0 06/20/23 14:50 Last ORT Risk Category Low Risk 06/20/23 14:50 Review of Systems ROS Status of ROS 10 or more systems reviewed and unremark able except as noted in history and below PFSH PFS Medical History Foot pain ?M79.673 - Pain in unspecified foot (ICD-10) Ankle pain ?M25.579 - Pain in unspecified ankle and joints of unspecified foot (ICD-10) Achilles tendinitis ?M76.60 - Achilles tendinitis, unspecified leg (ICD-10) Plantar fascial fibromatosis ?M72.2 - Plantar fascial fibromatosis (ICD-10) Migraine ?G43.909 - Migraine, unspecified, not intractable, without status migrainosus (ICD-10) GERD (gastroesophageal reflux disease) ?K21.9 - Gastro-esophageal reflux disease without esophagitis (ICD-10) Heartburn ?R12 - Heartburn (ICD-10) High cholesterol ?E78.00 - Pure hypercholesterolemia, unspecified (ICD-10) Calcaneal spur ?M77.30 - Calcaneal spur, unspecified foot (ICD-10) Strain of Achilles tendon ?S86.019A - Strain of unspecified Achilles tendon, initial encounter (ICD-10) Low back pain ?M54.50 - Low back pain, unspecified (ICD-10) Kidney stones ?N20.0 - Calculus of kidney (ICD-10) Sleep apnea ?G47.30 - Sleep apnea, unspecified (ICD-10) Hypertension ?I10 - Essential (primary) hypertension (ICD-10) Surgical History History of colonoscopy ?Z98.890 - Other specified postprocedural states (ICD-10) History of foot surgery ?Z98.890 - Other specified postprocedural states (ICD-10) H/O vasectomy (2014) ?Z98.52 - Vasectomy status (ICD-10) H/O shoulder replacement ?Z96.619 - Presence of unspecified artificial shoulder joint (ICD-10) History of carpal tunnel release ?Z98.890 - Other specified postprocedural states (ICD-10) Family History Grandmother Family history of CHF (congestive heart failure) Family history of COPD (chronic obstructive pulmonary disease) Mother Family history of COPD (chronic obstructive pulmonary disease) Family history of cancer Other Family history of lung cancer Social History Within the past year, how often did you have a drink containing alcohol: monthly or less Smoking status: Never smoker Non-prescribed substance use: denies use 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 Highest level of school completed/degree received: some college, no degree Are you now , , , , never or living with a partner: living with partner In a typical week, how many times do you talk on the telephone with family, friends, or neighbors: 3 or more times per week How often do you get together with friends or relatives: 3 or more times per week How often do you attend jehovah's witness or mandaeism services: never Do you belong to any clubs or organizations such as jehovah's witness groups unions, fraternal or athletic groups, or school groups: no Total score: 2 Score interpretation: A score of greater than or equal to 2 indicates the lowest level of social isolation. Little interest or pleasure in doing things: not at all Feeling down, depressed, or hopeless: not at all Feel stressed/tense/nervous/anxious/difficulty sleeping: not at all Do you think of yourself as: straight/heterosexual Gender Identity: male Meds Home Medications and Allergies Home Medications ?Medication ?Instructions ?Recorded ?Confirmed ?Type acetaminophen 500 mg capsule 1,000 mg PO .Q12 PRN pain 01/28/23 06/20/23 History ibuprofen 200 mg tablet (I-Prin) 800 mg PO Q12H 01/28/23 06/20/23 History lisinopril 10 mg tablet 10 mg PO DAILY 01/28/23 06/20/23 History omeprazole 20 mg capsule,delayed 20 mg PO DAILY 01/28/23 06/20/23 History release aspirin 81 mg tablet,delayed 81 mg PO DAILY 02/24/23 06/20/23 History release (Adult Aspirin Regimen) cholecalciferol (vitamin D3) 25 2,000 unit PO DAILY 02/24/23 06/20/23 History mcg (1,000 unit) chewable tablet (V[employer] Daily D) cyanocobalamin (vitamin B-12) 500 500 mcg PO DAILY 02/24/23 06/20/23 History mcg tablet (B-12 DOTS) magnesium 250 mg tablet 500 mg PO DAILY 03/04/23 06/20/23 History hydrocodone 7.5 mg-acetaminophen 1 tab PO TID PRN pain #21 tabs 05/30/23 06/20/23 Rx 325 mg tablet baclofen 10 mg tablet 10 mg PO BID 05/31/23 06/20/23 History vitamin B complex (B 1 tab PO DAILY 06/06/23 06/20/23 History Complex-Vitamin B12 tablet) naloxone 4 mg/actuation nasal 4 mg intranasal Q2M PRN opioid 06/12/23 06/20/23 Rx spray (Narcan) overdose #1 ea Allergies Allergy/AdvReac Type Severity Reaction Status Date / Time No Known Drug Allergies Allergy Verified 05/31/23 07:21 Exam Constitutional Vital Signs, click to edit/add: Last Vital Signs Temp 97.5 F L 06/20/23 16:31 Pulse 95 H 06/20/23 16:38 Resp 14 06/20/23 16:31 BP 138/68 06/20/23 16:31 Pulse Ox 93 L 06/20/23 16:31 O2 Del Method Nasal Cannula 06/20/23 16:31 O2 Flow Rate 2 06/20/23 16:31 Documenting provider has reviewed patient's vital signs: yes Common normals: no apparent distress HENMT Common normals: normocephalic and head/scalp atraumatic Lymph Lymphatic: no lymphadenopathy noted Chest Common normals: inspection of chest normal Respiratory Common normals: normal respiratory effort and no retractions Auscultation: rhonchi (Unchanged from previous day, was worse yesterday compared to admission) Cardio Common normals: regular rate and regular rhythm GI Common normals: Normal to inspection, nondistended, normoactive bowel sounds present and soft to palpation Results Labs Labs: Short CBC 06/20/23 Range/Units 09:14 WBC 10.9 (4.0-11.0) 10^3/uL Hgb 12.1 L (14.0-18.0) g/dL Hct 38.8 L (42.0-54.0) % Plt Count 112 L (150-450) 10^3/uL BMP 06/20/23 09:14 Sodium 139 Potassium 4.6 Chloride 102 Carbon Dioxide 26.2 BUN 19.0 H Creatinine 0.92 Glucose 114 H Calcium 8.8 Liver Function 06/20/23 Range/Units 09:14 Total Bilirubin 0.6 (0.2-1.0) mg/dL AST 12 L (15-37) U/L ALT 25 (16-63) U/L Alkaline Phosphatase 54 (46-116) U/L Albumin 3.4 (3.4-5.0) g/dL Urine 06/20/23 Range/Units 10:28 Urine Color Lt. yellow (YELLOW) Urine Clarity Clear (CLEAR) Urine pH 6.5 (5.0-9.0) Ur Specific Et[place] 1.010 (1.005-1.025) Urine Protein Negative (NEG/TRACE) mg/dL Urine Glucose (UA) Negative (NEGATIVE) mg/dL Assessment and Plan Assessment and Plan (1) Hypoxia: Plan Sinus tachycardia, uncontrolled hypertension, respiratory distress with acute hypoxia with O2 saturations in the mid 70s, possible healthcare acquired pneumonia since he has been in the hospital to receive IV vancomycin, broad-spec trum antibiotics, try to obtain sputum culture, repeat blood culture pending With progressive dyspnea-checked repeat echocardiogram, valvular vegetation noted. 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 Blood cultures were sent out to one of their lab to be typed as we could not do sensitivities here. [facility] was also unable to do sensitivities. So they referred off to a second reference lab. Final culture came back resistant to the Rocephin, sensitive to vancomycin and penicillin. Did not try penicillin, he was on Zosyn with his last admission white blood cell count continues to elevate despite the Zosyn. So patient was started 2 days ago on vancomycin. Discussed case with Dr. Fontaine, with new valvular vegetation obvious on transthoracic echo, resistant organism on blood cultures, in need of JUDY urgently with considerations for valvular replacement. Case discussed with [facility] who agreed to accept patient in transfer. Dr. Browning is accepting Hypertension-use as needed hydralazine Pulmonary edema with small pleural effusions-BNP was negative, no peripheral edema, repeat BNP in a.m. if still here pending transfer. Iron deficiency anemia-monitor daily Thrombocytopenia-monitor daily likely as a result of above infection. Lumbar radiculopathy-continue with home medications With the severity of his hypoxia on admission with O2 saturations in the mid 70s, hospital-acquired pneumonia, valvular vegetations with positive blood cultures of resistant organism, place patient inpatient status.Hospitalization For medically necessary treatment will span 2 midnights at a minimum.
--- NOTE | 2023-06-20 17:43 | P.DS_ITS ---
DS: Providers Provider Date of admission: 06/20/23 14:50 Primary care physician: Demetrius Parish MD Consults: 06/20/23 13:00 Consult to Pharmacy Routine Consulting Provider: Reason for consultation: tiger text me when home meds are correct Has provider been notified: No 06/20/23 13:02 Physical Therapy Eval and Treat Routine Reason for consultation: Eval and Treat Has provider been notified: No DS: Diagnosis Discharge Diagnosis (1) Hypoxia: Plan Sinus tachycardia, uncontrolled hypertension, respiratory distress with acute hypoxia with O2 saturations in the mid 70s, possible healthcare acquired pneumonia since he has been in the hospital to receive IV vancomycin, broad- spectrum antibiotics, try to obtain sputum culture, repeat blood culture pending With progressive dyspnea-checked repeat echocardiogram, valvular vegetation noted. 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 Blood cultures were sent out to one of their lab to be typed as we could not do sensitivities here. [facility] was also unable to do sensitivities. So they referred off to a second reference lab. Final culture came back resistant to the Rocephin, sensitive to vancomycin and penicillin. Did not try penicillin, he was on Zosyn with his last admission white blood cell count continues to elevate despite the Zosyn. So patient was started 2 days ago on vancomycin. Discussed case with Dr. Fontaine, with new valvular vegetation obvious on transthoracic echo, resistant organism on blood cultures, in need of JUDY urgently with considerations for valvular replacement. Case discussed with [facility] who agreed to accept patient in transfer. Dr. Browning is accepting Hypertension-use as needed hydralazine Pulmonary edema with small pleural effusions-BNP was negative, no peripheral edema, repeat BNP in a.m. if still here pending transfer. Iron deficiency anemia-monitor daily Thrombocytopenia-monitor daily likely as a result of above infection. Lumbar radiculopathy-continue with home medications With the severity of his hypoxia on admission with O2 saturations in the mid 70s, hospital-acquired pneumonia, valvular vegetations with positive blood cultures of resistant organism, place patient inpatient status.Hospitalization For medically necessary treatment will span 2 midnights at a minimum. DS: Summary Hospital Course Hospital Course: Patient admitted inpatient status after evaluation in the emergency room found significant hypoxia, possible healthcare acquired pneumonia, placed on broad- spectrum antibiotics, echocardiogram returned with new valvular vegetation in the aortic valve. Case was discussed with cardiology who agreed patient would be beneficial to be transferred to [facility] for JUDY, considerations for valvular replacement with resistant organism on previous blood cultures. Granulicatella adiacens. Resistant to Rocephin, sensitive to penicillin, meropenem and vancomycin. Patient been treated as an outpatient for the last 2 days with vancomycin. He was previously treated with Rocephin as historically the organism is sensitive to Rocephin. Once final resistance was obtained, antibiotics were changed. His shortness of breath has gotten worse over the last 24 hours so admitted for the above. Patient be transferred to [facility] for urgent JUDY and considerations for valvular surgery. Medications see list. I will follow-up with patient as an outpatient Time Spent with Patient Time attestation: Total time spent providing and/or coordinating discharge services: Time spent: greater than 30 minutes Exam Constitutional Vital Signs, click to edit/add: Last Vital Signs Temp 97.5 F L 06/20/23 16:31 Pulse 95 H 06/20/23 16:38 Resp 14 06/20/23 16:31 BP 138/68 06/20/23 16:31 Pulse Ox 93 L 06/20/23 16:31 O2 Del Method Nasal Cannula 06/20/23 16:31 O2 Flow Rate 2 06/20/23 16:31 Documenting provider has reviewed patient's vital signs: yes Common normals: no apparent distress HENND Common normals: normocephalic and head/scalp atraumatic Lymph Lymphatic: no lymphadenopathy noted Chest Common normals: inspection of chest normal Respiratory Common normals: normal respiratory effort and no retractions Auscultation: rhonchi (Unchanged from previous day, was worse yesterday compared to admission) Cardio Common normals: regular rate and regular rhythm GI Common normals: Normal to inspection, nondistended, normoactive bowel sounds present and soft to palpation DS: Data Data Completed and Pending Labs on day of discharge: Labs from last 24 hours 06/20/23 06/20/23 06/20/23 13:22 10:28 09:48 WBC RBC Hgb Hct MCV MCH MCHC RDW Plt Count MPV Neut % (Auto) Lymph % (Auto) [place] % (Auto) Eos % (Auto) Baso % (Auto) Neut # (Auto) Lymph # (Auto) [place] # (Auto) Eos # (Auto) Baso # (Auto) Abs Immat Gran (auto) Imm/Tot Granulo (auto) ESR 17 PT 10.1 INR 0.95 APTT 26.3 Sodium Potassium Chloride Carbon Dioxide Anion Gap BUN Creatinine Est GFR ( Amer) Est GFR (Non-Af Amer) BUN/Creatinine Ratio Glucose Lactate 1.4 Calcium Magnesium 2.0 Total Bilirubin AST ALT Alkaline Phosphatase Troponin I High Sens 13.1 C-Reactive Protein 0.67 H NT-Pro-B Natriuret Pep Total Protein Albumin Globulin Albumin/Globulin Ratio Procalcitonin Urine Color Lt. yellow Urine Clarity Clear Urine pH 6.5 Ur Specific [place] 1.010 Urine Protein Negative Urine Glucose (UA) Negative Urine Ketones Negative Urine Occult Blood Negative Urine Nitrite Negative Urine Bilirubin Negative Urine Urobilinogen 0.2 Ur Leukocyte Esterase Negative Adenovirus (PCR) C. pneumoniae DNA (PCR) Coronavirus Type OC43 Coronavirus Type HKU1 Coronavirus Type 229E Coronavirus Type NL63 Human Metapneumovir PCR Influenza Type A Ag Influenza Type B Ag M. pneumoniae (PCR) Parainfluenza PCR Parainfluenza 2 (PCR) Parainfluenza 3 (PCR) Parainfluenza 4 (PCR) RSV (RT-PCR) Entero/Rhino (PCR) SARS-CoV-2 (PCR) SARS-CoV-2 Ag (CV2AG) Bordetella pertussis (PCR) B parapertussis DNA PCR Influenza Type A (PCR) Influenza Type B (PCR) 06/20/23 06/20/23 09:14 09:05 WBC 10.9 RBC 4.22 L Hgb 12.1 L Hct 38.8 L MCV 91.9 MCH 28.7 MCHC 31.2 RDW 16.0 H Plt Count 112 L MPV 10.1 Neut % (Auto) 89.2 H Lymph % (Auto) 6.2 L [place] % (Auto) 3.3 Eos % (Auto) 0.6 L Baso % (Auto) 0.4 Neut # (Auto) 9.7 H Lymph # (Auto) 0.7 L [place] # (Auto) 0.4 Eos # (Auto) 0.1 Baso # (Auto) 0.0 Abs Immat Gran (auto) 0.03 Imm/Tot Granulo (auto) 0.3 ESR PT INR APTT Sodium 139 Potassium 4.6 Chloride 102 Carbon Dioxide 26.2 Anion Gap 15.4 BUN 19.0 H Creatinine 0.92 Est GFR ( Amer) >60 Est GFR (Non-Af Amer) >60 BUN/Creatinine Ratio 20.7 Glucose 114 H Lactate 1.2 Calcium 8.8 Magnesium Total Bilirubin 0.6 AST 12 L ALT 25 Alkaline Phosphatase 54 Troponin I High Sens 10.9 C-Reactive Protein NT-Pro-B Natriuret Pep 351.0 Total Protein 6.5 Albumin 3.4 Globulin 3.1 Albumin/Globulin Ratio 1.1 Procalcitonin <0.05 Urine Color Urine Clarity Urine pH Ur Specific [place] Urine Protein Urine Glucose (UA) Urine Ketones Urine Occult Blood Urine Nitrite Urine Bilirubin Urine Urobilinogen Ur Leukocyte Esterase Adenovirus (PCR) Not detected C. pneumoniae DNA (PCR) Not detected Coronavirus Type OC43 Not detected Coronavirus Type HKU1 Not detected Coronavirus Type 229E Not detected Coronavirus Type NL63 Not detected Human Metapneumovir PCR Not detected Influenza Type A Ag Negative Influenza Type B Ag Negative M. pneumoniae (PCR) Not detected Parainfluenza PCR Not detected Parainfluenza 2 (PCR) Not detected Parainfluenza 3 (PCR) Not detected Parainfluenza 4 (PCR) Not detected RSV (RT-PCR) Not detected Entero/Rhino (PCR) Not detected SARS-CoV-2 (PCR) Not detected SARS-CoV-2 Ag (CV2AG) Negative Bordetella pertussis (PCR) Not detected B parapertussis DNA PCR Not detected Influenza Type A (PCR) Not detected Influenza Type B (PCR) Not detected Discharge Plan Discharge Disposition: [facility]
[2023-06-20] MEDS: VANCOMYCIN HCL 2,000 MG in 0.9 % SODIUM CHLORIDE 500 ML 250 MG IV (19:54)
[2023-06-20] MEDS: HYDROCODONE/ACET 5-325 MG TABLET 1 TAB PO (21:04)
[2023-06-20] MEDS: BACLOFEN 10 MG TABLET PO (21:04)
== END 2023-06-20 21:14 | disposition short-term general hospital (02) | DRG 193 ==
LOC: ER 12:05 → MS 12:11
PROVIDERS: Admitting Provider Family Medicine; Emergency Provider Emergency Medicine; PCP Family Medicine; Visit Provider Family Medicine
DX: J18.9 Pneumonia, unspecified organism (principal); I33.0 Acute and subacute infective endocarditis; J81.1 Chronic pulmonary edema; J90 Pleural effusion, not elsewhere classified; Z16.39 Resistance to other specified antimicrobial drug; M54.50 Low back pain, unspecified; M47.26 Other spondylosis with radiculopathy, lumbar region; M79.18 Myalgia, other site; Z79.891 Long term (current) use of opiate analgesic; B96.89 Other specified bacterial agents as the cause of diseases classified elsewhere; R09.02 Hypoxemia; Y95 Nosocomial condition; I10 Essential (primary) hypertension; D50.9 Iron deficiency anemia, unspecified; D69.6 Thrombocytopenia, unspecified; M54.16 Radiculopathy, lumbar region; R06.03 Acute respiratory distress; K21.9 Gastro-esophageal reflux disease without esophagitis; R12 Heartburn; G47.33 Obstructive sleep apnea (adult) (pediatric); Z87.442 Personal history of urinary calculi
CPT/HCPCS: 0202U; 36415; 71045; 71275; 80053; 81003; 83605; 83735; 83880; 84145; 84484; 85025; 85610; 85652; 85730; 86140; 87040; 87070; 87804; 87811; 93005; 93306; 94640; 94667; 94761; 96365; 96366; 96367; 96375; 99285; G0463; J3370; Q9967

== ENCOUNTER 2023-07-01 09:14 | Outpatient (RCR) | payer BC, SELFPAY | END 2023-07-30 18:18 | disposition home or self-care (01) | LOC: MM 09:14 | PROVIDERS: PCP Family Medicine; Visit Provider Internal Medicine | DX: Z51.81 Encounter for therapeutic drug level monitoring (principal); Z79.01 Long term (current) use of anticoagulants; Z95.2 Presence of prosthetic heart valve ==

== ENCOUNTER 2023-07-06 11:17 | Outpatient (REF) | payer BC, SELFPAY ==
--- OUTSIDE RECORDS SUMMARY | 2023-07-06 11:22 | XMS_ITS | CCD ---
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 OPERATOR - [facility] Primary Care Provide r [facility] Primary Care Unavailable JUANITA CARMONA Consulting Unavailable JUANITA CARMONA Attending Unavailable JUANITA CARMONA Admitting [facility] EXHAUST MACHINE OPERATOR.[facility] Primary Care Provider [facility] Primary Care Physician UnavailNicolasa Perry Unavailable Unavailable [facility] Primary Care Physician [facility] EXHAUST MACHINE OPERATOR.[facility] Primary Care Provider [facility] EXHAUST MACHINE OPERATOR.[facility] Primary Care Provider [facility] EXHAUST MACHINE OPERATOR.[facility] Primary Care Provider JAVIER, DR KINGSLEY Ro Consulting Unavailable YRN, DR ARROYO Attending Unavailable YRN, DR ARROYO Admitting Unavailable TOSHA, DR JAYY Marte Consulting Unavailable YRN, DR ARROYO Consulting Unavailable [facility] Referring Unavailable [facility] Primary Care Unavailable ANH MENA Attending Unavailab ANH Morales Referring Unavailab [facility] Primary Care Unavailable [facility] Primary Care Unavailable [facility] Referring Unavailable [facility] Primary Care Unavailable [facility] Attending Unavailable [facility] Referring Unavailable [facility] Primary Care Unavailable [facility] Primary Care Unavailable TREY SHARMA Attending Unavailable TREY SHARMA Referring Unavailable [facility] Attending Unavailable [facility] Primary Care Unavailable [facility] Primary Care Unavailable [facility] Referring Unavailable [facility] Primary Care Unavailable [facility] Attending Unavailable [facility] Referring Unavailable [facility] Primary Care Unavailable [facility] Referring Unavailable [facility] Primary Care Unavailable [facility] Attending Unavailable [facility] Primary Care Unavailable JAYY PATEL Referring Unavailable [facility] Primary Care Unavailable [facility] Attending Unavailable [facility] Primary Care Unavailable ANH MENA Attending Unavailab [facility] Referring Unavailable ANH MENA Referring Unavailab TARSHA Willson Attending Unavailable [facility] Primary Care Unavailable [facility] Primary Care Unavailable [facility] Referring Unavailable [facility] Primary Care Unavailable [facility] Referring Unavailable Kelly Yi Unavailable HAIDER Aguillon [facility] Primary Care Provider HAIDER Yi Attending Provider HAIDER Quezada Attending Provider HAIDER Guerrero Primary Care Provider Siri Quezada Unavailable Vonnie Guerrero Primary Care Physician [phone] Kandis Amado Unavailable HAIDER Aguillon [facility] Primary Care Provider HAIDER Yi Attending Provider [phone] HAIDER Quezada Attending Provider HAIDER Guerrero Primary Care Provider DO Huan Cowan Attending Provider Katya Harrington Unavailable Unavailable Siri Quezada Admitting Unavailable Siri Quezada Attending Unavailable [facility] Unavailabl e Judie Quezadaica Admitting Unavailable Siri Quezada Attending Unavailable Vonnie Guerrero Primary Care Unavailable Judie Quezadaica Admitting Unavailable Siri Quezada Attending Unavailable Vonnie Guerrero Primary Care Unavailable Huan Cowan Admitting Unavailable Huan Cowan Attending Unavailable [facility] Unavailabl e Kelly Yi Admitting Unavailable Kelly Yi Attending Unavailable HUAN COWAN Referring Unavailable HUAN COWAN Attending Unavailable HUAN COWAN Attending Unavailable HUAN COWAN Referring Unavailable Jean SEXTON, Brenton Reid Attending Unavailable Jean SEXTON, Brenton Reid Attending Unavailable Jean SEXTON, Brenton Reid Attending Unavailable Jean SEXTON, Brenton Reid Attending Unavailable Joel Bledsoe Attending Unavailable [facility] Unavailable Joel Bledsoe Attending Unavailable [facility] Unavailable Joel Bledsoe Admitting Unavailable YolandaVonnie wadsworth Attending Unavailable Huan Cowan Admitting Unavailable Huan Cowan Attending Unavailable Huan Cowan Attending Unavailable Huan Cowan Admitting Unavailable BrownHuan Attending Unavailable BrownHuan A Admitting Unavailable YolandaVonnie wadsworth Attending Unavailable CANDICE, Referring Unavailable CANDICE, MAI Referring Unavailable GEORGE, PAUL Referring Unavailable KULAKOWSKI, ISAIAS Herbert Referring Unavailabl e CANDICE, Referring Unavailable CANDICE, Referring Unavailable CHANDRAKANT BERNAL Referring Unavailable GEORGE, PAUL Admitting Unavailable GEORGE, PAUL Attending Unavailable JODY KOCH Referring Unavailable KUCHAS, ISAIAS Herbert Referring Unavailabl e KULAKOWSKI, ISAIAS Herbert Referring Unavailabl e KULAKOWSKI, ISAIAS Herbert Referring Unavailabl e KULAKOWSKI, ISAIAS Herbert Referring Unavailabl e KULAKOWSKI, ISAIAS Herbert Referring Unavailabl e KULAKOWSKI, ISAIAS J Referring Unavailabl e KULAKOWSKI, ISAIAS J Referring Unavailabl e CANDICE, Referring Unavailable RUPERT ANGELES Attending Unavailable GORDON NIX Referring Unavailable CANDICE, Referring Unavailable CANDICE, Referring Unavailable KULAKOMIKE, ISAIAS Herbert Referring Unavailabl e KULAKOWSKI, ISAIAS J Referring Unavailabl e KULAKOWSKI, ISAIAS J Referring Unavailabl e CANDICE, Referring Unavailable CANDICE, Referring Unavailable Allergies Allergy Classification Reported Allergen(s) Allergy Type Date of Onset Reaction(s) Facility (1 source) No Known Medication Allergies; Translations: [No Known Medication Allergies] Propensity to adverse reactions to drug (disorder) [facility] Repository Medications Current Medications Medication Drug Class(es) [...] Start: 03-01-2019 take 2 tablets by [facility] every six hours as needed for pain acetaminophen 325 mg Tab 650 mg = 2 tab(s), Oral, q6hr, PRN Pain, Refills(s) 0 Start Date: 03/01/19 Status: Ordered take 2 tablets by mo [facility] every twelve hours Acetaminophen 500 MG 2 tablet Orally bid Active take 1 tablet [facility] every six hours as needed Acetaminophen 500 [...] day(s), # 9 cap(s), Refills(s) 0, Pharmacy: [facility] #[id number], 185.5, cm, 08/08/21 12:06:00 EDT, Height/Length Dosing, 179.2, kg, 08/08/21 12:06:00 EDT, Weight Dosing Start Date: 08/23/21 Stop Date: 08/26/21 Status: Ordered cholecalciferol 0.05 mg oral tablet (2 sources) Vitamin D take 1 tablet by mouth every twenty-four hours Vitamin D3 50 MCG (2000 UT) 1 tablet Orally Once a day Active docusate sodium 100 mg oral capsule (2 sources) Start: 08-23-2021 take 1 capsule by mouth twice daily as needed for constipation Colace 100 mg Cap 100 mg = 1 cap(s), Oral, BID, PRN for constipation, # 20 cap(s), Refills(s) 0, Pharmacy: [facility] #[id number], 185.5, cm, 08/08/21 12:06:00 EDT, Height/Length [...] milk, # 60 tab(s), Refills(s) 0, Pharmacy: [facility] #[facility], 185.5, cm, 08/08/21 12:06:00 EDT, Height/Length [...] Daily, # 90 tab(s), Refills(s) 3, Pharmacy: [facility]/pharmacy #[id number], 185.5, cm, 01/09/23 16:37:00 [...] Ordered Start: 03-23-2017 take 1 capsule by [facility] once daily Prilosec 20 mg Cap - DR 20 mg, Oral, Daily, Refills(s) 0 Start Date: 03/23/17 Status: Ordered Start: 2016 take 1 capsule by [facility] once daily Omeprazole 40 mg capsule Indications: Gastroesophageal reflux disease, esophagitis presence not specified Take 1 capsule by mouth once daily. 30 capsule 11 2016 Active take 1 tablet by [place] once daily PriLOSEC OTC 20 MG 1 tablet 30 minutes before morning meal Orally Once a day Active End: 07-25-2021 Omeprazole Magnesium (PRILOS EC OTC) 20 mg tablet 2 tablet 0 07/25/2021 Discontinued (Discontinued by Patient) Comment on above: Take 1 capsule by [facility] once daily. 2 tablet ondansetron (ZOFRAN-ODT) [...] 6 HOURS PRN, Pain Severe (7-10), Starting 08/01/20 at 2358 polyethylene glycol 3350 66812 mg powder for oral solution (1 source) [...] tab(s), Refill(s) 0, 1-2 tab(s) Oral q4hr, [id number], 185.5, cm, 08/08/21 12:06:00 EDT, [...] autopap titration study. Please fax results to [phone]. DX: JACOBY G47.33 1 Each 0 11/08/2016 09/13/2020 Discontinued Comment on above: Please perform autop ap titration study. Please fax results to [phone]. DX: JACOBY G47.33 doxepin hydrochloride 10 mg [...] Comment on above: Take 2 tablets by [facility] daily with dinner. 1 ml morphine sulfate 4 mg/ml cartridge (1 source) Opioid Agonist Start: End: morphine injection 4 mg 2 ml orphenadrine citrate 30 mg/ml injection (1 source) Muscle Relaxant Start: End: orphenadrine (NORFLEX) injection 60 mg oxaprozin 600 mg oral tablet (4 sources) Nonsteroidal Anti-inflammatory Drug take 1 tablet by mouth every twelve hours Daypro 600 MG 1 tablet Orally Twice a day for 30 day(s) Not-Taking/PRN perflutren lipid microspheres 1.3 mL in NaCl (PF) 0.9% 10 mL injection (DEFINITY) (7 sources) Start: End: perflutren lipid microspheres 1.3 mL in NaCl (PF) 0.9% 10 mL injection (DEFINITY) Start: 08-10-2021 End: 11-09-2022 perflutren lipid microsphere s 1.3 mL in NaCl (PF) 0.9% 10 mL injection (DEFINITY) polyethylene glycol 3350 248974 mg / potassium chloride 2970 mg / sodium bicarbonate 6740 mg / sodium chloride 5860 mg / sodium sulfate 52780 mg powder for oral solution (14 sources) [...] source) Personal history of urinary calculi Episodic Coronary atherosclerosis and other heart disease (2 sources) Atherosclerotic heart disease of [place] coronary artery without angina pectoris; Translations: [Atherosclerotic heart disease of [place] coronary artery without angina pectoris] Onset: 06-21-2023 Chronic Diabetes mellitus without complication (5 sources) Diabetes [...] unspecified] Onset: 05-26-2022 Episodic Heart valve disorders (6 sources) Nonrheumatic mitral (valve) insufficiency; Translations: [Nonrheumatic aortic valve disorder, unspecified] Onset: 06-21-2023 Chronic Miscellaneous mental health disorders (20 sources) Primary insomnia; Translations: [Primary insomnia] Onset: 11-26-2019 11-26-2019 Chronic Mood disorders (6 sources) Depressive disorder 06-12-2013 Chronic Neoplasms of unspecified nature or uncertain behavior (2 sources) Neoplasm of unspecified behavior of bone, soft tissue, and skin; Translations: [Neoplasm of unspecified behavior of bone, soft tissue, and skin] Onset: 06-21-2023 Episodic Nutritional deficiencies (1 source) Vitamin D deficiency; [...] [Morbid obesity with BMI of 50.0-59.9, adult ([facility])] Onset: 11-26-2019 Chronic Other nutritional; endocrine; and metabolic disorders (4 sources) Body mass index (BMI) 50.0-59.9, adult; Translations: [Morbid obesity with BMI of 50.0-59.9, adult ([facility])] Onset: 11-26-2019 Chronic Other nutritional; endocrine; and metabolic disorders (1 source) Obesity, unspecified Chronic Other nutritional; endocrine; and metabolic disorders (3 sources) Abnormal weight gain; Translations: [Abnormal weight gain] Episodic [place]-; endo-; and myocarditis; cardiomyopathy (except that caused by tuberculosis or sexually transmitted disease) (2 sources) Acute and subacute infective endocarditis; Translations: [Acute and subacute infective endocarditis] Onset: 06-21-2023 Episodic Residual codes; unclassified (20 sources) Obstructive [...] Name Value Interpretation Reference Range Facility 30on 07-05-2023 30 Normal [facility] BASIC METABOLIC PANELon Anion gap [Moles/Vol] 12 mmol/L Normal 7-20 [facility] Comment on above: Performed By: #### L [id number] ####[facility] (BEAKER)[address] [place] [address] Calcium [Mass/Vol] 8.7 mg/dL Normal 8.6-10.3 [facility] Comment on above: Performed By: #### L [id number] ####[facility] ([facility])[address] [place] [address] Chloride [Moles/Vol] 102 mmol/L Normal 98-107 [facility] Comment on above: Performed By: #### L [id number] ####[facility] ([facility])[address] [place] [address] CO2 [Moles/Vol] 25 mmol/L Normal 21-31 [facility] Comment on above: Performed By: #### L [id number] ####[facility] ([facility])[address] [place] [address] Creatinine [Mass/Vol] 1.02 mg/dL Normal 0.70-1.30 [facility] Comment on above: Performed By: #### L [id number] ####[facility] ([facility])[address] [place] [address] GLOMERULAR FILTRATION RATE ML/MIN/1.73 SQ M.PREDICTED 89.5 mL/min/1.73m*2 Normal >60.0 [place] Comment on above: Result Comment: [facility]???s estimated glomerular filtration rate (eGFR) will no [...] group of individuals. Performed By: #### L [id number] ####[facility] ([facility])[address] [place] [address] Glucose [Mass/Vol] 101 mg/dL High 70-100 [facility] Comment on above: Performed By: #### L [id number] ####[facility] ([facility])[address] [place] [address] Potassium [Moles/Vol] 3.9 mmol/L Normal 3.5-5.1 [facility] Comment on above: Performed By: #### L [id number] ####[facility] ([facility])[address] [place] [address] Sodium [Moles/Vol] 135 mmol/L Low 136-145 [facility] Comment on above: Performed By: #### L [id number] ####[facility] ([facility])[address] [place] [address] Urea nitrogen [Mass/Vol] 14 mg/dL Normal 7-25 [facility] Comment on above: Performed By: #### L [id number] ####[facility] ([facility])[address] [place] [address] UREA NITROGEN/CREATININE (MASS RATIO) IN SER/PLAS 13.7 Normal [facility] Comment on above: Performed By: #### L [id number] ####[facility] ([facility])[address] [place] [address] CBCon 07-05-2023 Erythrocyte distribution width (RBC) [Ratio] 15.7 % High 11.5-15.0 [facility] Comment on above: Performed By: #### L [id number] ####[facility] ([facility])[address] [place] [address] ERYTHROCYTE MEAN CORPUSCULAR HEMOGLOBIN CONCENTRATION (G/DL) BY AUTOMATED 31.8 g/dL Low 32.0-35.0 [facility] Comment on above: Performed By: #### L [id number] ####[facility] ([facility])[address] [place] [address] Hematocrit (Bld) [Volume fraction] 26.1 % Low 39.0-55.0 [facility] Comment on above: Performed By: #### L [id number] ####[facility] ([facility])[address] [place] [address] Hemoglobin (Bld) [Mass/Vol] 8.3 g/dL Low 13.0-17.0 [facility] Comment on above: Performed By: #### L [id number] ####[facility] ([facility] [place] [address] MCH (RBC) [Entitic mass] 28.2 pg Normal 27.0-33.0 [facility] Comment on above: Performed By: #### L [id number] ####[facility] ([facility])[address] [place] [address] MCV (RBC) [Entitic vol] 88.8 fL Normal 82.0-98.0 [facility] Comment on above: Performed By: #### L [id number] ####[facility] ([facility])[address] [place] [address] PLATELETS (10*3/UL) IN BLOOD AUTOMATED COUNT 216 10*3/uL Normal 150-400 [facility] Comment on above: Performed By: #### L [id number] ####[facility] ([facility])[address] [place] [address] RBC (Bld) [#/Vol] 2.94 10*6/uL Low 4.20-5.70 [facility] Comment on above: Performed By: #### L [id number] ####[facility] ([facility])[address] [place], [place] [address] WBC (Bld) [#/Vol] 4.87 10*3/uL Normal 4.00-10.60 [facility] Comment on above: Performed By: #### L [id number] ####[facility] ([facility])[address] [place] [address] Letter (Out)on 07-05-2023 Letter (Out) Normal [place] MAGNESIUMon 07-05-2023 Magnesium [Mass/Vol] 1.9 mg/dL Normal 1.9-2.7 [facility] Comment on above: Performed By: #### L [id number] ####[facility] ([facility])[address] [place] [address] POCT GLUCOSE METER UNSOLICIT ED RESULTSon 07-05-2023 Glucose [Mass/Vol] 123 mg/dL High 70-105 [facility] Comment on above: Order Comment: Waive d Testing in the ED is performed under the ED CLIA certificate #[id number]. Result Comment: [email or web address] Performed By: #### L [id number] ####[facility] ([facility])[address] [place] [address] Glucose [Mass/Vol] 112 mg/dL High 70-105 [facility] Comment on above: Order Comment: Waive d Testing in the ED is performed under the ED CLIA certificate #[id number]. Result Comment: [email or web address] Performed By: #### L [id number] ####[facility] (DAMAR[facility])[address] [place] [address] PROTIME-INRon 07-05-2023 INR IN PPP BY COAGULATION ASSAY 2.17 High 0.90-1.10 [facility] Comment on above: Result Comment: ACCC P RECOMMENDED INR FOR WARFARIN THERAPY CONDITION INRPROPHYLAXIS OF VENOUS THROMBOSIS 2-3(HIGH-RISK SURGERY)TREATMENT OF VENOUS THROMBOSIS 2-3TREATMENT OF PULMONARY EMBOLISM 2-3PREVENTION OF SYSTEMIC EMBOLISM: 2-3 ACUTE MYOCARDIAL INFARCTION TISSUE HEART VALVES VALVULAR HEART DISEASE ATRIAL FIBRILLATION RECURRENT SYSTEMIC EMBOLISMMECHANICAL HEART VALVE 2.5-3.5 FROM: ORAL ANTICOAGULANTS. MECHANISM OF ACTION, CLINICAL EFFECTIVENESS, AND OPTIMAL THERAPEUTIC RANGE. CHEST 1995;108:231S-246S. Performed By: #### L [id number] ####[facility] ([place])[address] [place] [address] PROTHROMBIN TIME (PT) IN PPP BY COAGULATION ASSAY 24.3 Seconds High 12.3-14.8 [facility] Comment on above: Performed By: #### L [id number] ####[facility] ([place])[address] [place] [address] 30on 07-04-2023 30 Normal [facility] 30 Normal [facility] ANTI-XA (LOW MOLECULAR WGT H EPARIN LVL)on 07-04-2023 LMW HEPARIN (U/ML) IN PPP BY CHROMOGENIC METHOD 1.00 IU/mL Normal 0.6-1.2 [facility] Comment on above: Order Comment: For E noxaparin (not heparin) Please draw lab.The maximum anti-Factor Xa and anti-thrombin (anti-Factor IIa) activities occur 3 to 5 hours after SC injection of either enoxaparin (Lovenox) or dalteparin (Fragmin). Optimal time for testing is 4 hours after a dose is injected.Rivaroxaban and Apixaban will interfere with the anti Xa assay used to monitor UFH and LMWH. Performed By: #### L [id number] ####[facility] ([facility]ER)[address] [place] [address] BASIC METABOLIC PANELon 04-0 Anion gap [Moles/Vol] 10 mmol/L Normal 7-20 [facility] Comment on above: Performed By: #### L [id number] ####[facility] ([facility])[address] [place] [address] Calcium [Mass/Vol] 8.6 mg/dL Normal 8.6-10.3 [facility] Comment on above: Performed By: #### L [id number] ####[facility] ([facility]ER)[address] [place] [address] Chloride [Moles/Vol] 103 mmol/L Normal 98-107 [facility] Comment on above: Performed By: #### L [id number] ####[facility] ([facility]ER)[address] [place] [address] CO2 [Moles/Vol] 28 mmol/L Normal 21-31 [facility] Comment on above: Performed By: #### L [id number] ####[facility] ([facility]ER)[address] [place] [address] Creatinine [Mass/Vol] 1.04 mg/dL Normal 0.70-1.30 [facility] Comment on above: Performed By: #### L [id number] ####[facility] ([facility])[address] [place] [address] GLOMERULAR FILTRATION RATE ML/MIN/1.73 SQ M.PREDICTED 87.5 mL/min/1.73m*2 Normal >60.0 [place] Comment on above: Result Comment: [facility]???s estimated glomerular filtration rate (eGFR) will no [...] group of individuals. Performed By: #### L [id number] ####[facility] ([facility])[address] [place] [address] Glucose [Mass/Vol] 91 mg/dL Normal 70-100 [facility] Comment on above: Performed By: #### L [id number] ####[facility] ([facility])[address] [place] [address] Potassium [Moles/Vol] 4.6 mmol/L Normal 3.5-5.1 [facility] Comment on above: Performed By: #### L [id number] ####[facility] ([facility])[address] [place] [address] Sodium [Moles/Vol] 136 mmol/L Normal 136-145 [facility] Comment on above: Performed By: #### L [id number] ####[facility] ([facility])[address] [place] [address] Urea nitrogen [Mass/Vol] 13 mg/dL Normal 7-25 [facility] Comment on above: Performed By: #### L [id number] ####[facility] ([facility])[address] [place] [address] UREA NITROGEN/CREATININE (MASS RATIO) IN SER/PLAS 12.5 Normal [facility] Comment on above: Performed By: #### L [id number] ####[facility] ([facility])[address] [place] [address] CBCon 07-04-2023 Erythrocyte distribution width (RBC) [Ratio] 15.8 % High 11.5-15.0 [facility] Comment on above: Performed By: #### L [id number] ####[facility] ([facility])[address] [place] [address] ERYTHROCYTE MEAN CORPUSCULAR HEMOGLOBIN CONCENTRATION (G/DL) BY AUTOMATED 32.0 g/dL Normal 32.0-35.0 [facility] Comment on above: Performed By: #### L [id number] ####[facility] ([facility])[address] [place] [address] Hematocrit (Bld) [Volume fraction] 24.7 % Low 39.0-55.0 [facility] Comment on above: Performed By: #### L [id number] ####[facility] ([facility])[address] [place] [address] Hemoglobin (Bld) [Mass/Vol] 7.9 g/dL Low 13.0-17.0 [facility] Comment on above: Performed By: #### L [id number] ####[facility] ([facility])[address] [place] [address] MCH (RBC) [Entitic mass] 28.9 pg Normal 27.0-33.0 [facility] Comment on above: Performed By: #### L [id number] ####[facility] ([facility])[address] [place] [address] MCV (RBC) [Entitic vol] 90.5 fL Normal 82.0-98.0 [facility] Comment on above: Performed By: #### L [id number] ####[facility] ([facility])[address] [place] [address] PLATELETS (10*3/UL) IN BLOOD AUTOMATED COUNT 243 10*3/uL Normal 150-400 [facility] Comment on above: Performed By: #### L [id number] ####[facility] ([facility])[address] [place] [address] RBC (Bld) [#/Vol] 2.73 10*6/uL Low 4.20-5.70 [facility] Comment on above: Performed By: #### L [id number] ####[facility] ([facility])[address] [place] [address] WBC (Bld) [#/Vol] 5.14 10*3/uL Normal 4.00-10.60 [facility] [facility] Comment on above: Performed By: #### L [id number] ####[facility] ([facility])[address] [place] [address] MAGNESIUMon 07-04-2023 Magnesium [Mass/Vol] 1.9 mg/dL Normal 1.9-2.7 [facility] Comment on above: Performed By: #### L [id number] ####[facility] ([facility])[address] [place] [address] POCT GLUCOSE METER UNSOLICIT ED RESULTSon 07-04-2023 Glucose [Mass/Vol] 112 mg/dL High 70-105 [facility] Comment on above: Order Comment: Waive d Testing in the ED is performed under the ED CLIA certificate #[id number]. Result Comment: [email or web address] Performed By: #### L [id number] ####[facility] ([facility])[address] [place] [address] Glucose [Mass/Vol] 130 mg/dL High 70-105 [facility] Comment on above: Order Comment: Waive d Testing in the ED is performed under the ED CLIA certificate #[id number]. Result Comment: [email or web address] Performed By: #### L [id number] ####[facility] ([facility])[address] [place] [address] Glucose [Mass/Vol] 127 mg/dL High 70-105 [facility] Comment on above: Order Comment: Waive d Testing in the ED is performed under the ED CLIA certificate #[id number]. Result Comment: [email or web address] Performed By: #### L [id number] ####[facility] ([facility])[address] [place] [address] Glucose [Mass/Vol] 113 mg/dL High 70-105 [facility] Comment on above: Order Comment: Waive d Testing in the ED is performed under the ED CLIA certificate #[id number]. Result Comment: [email or web address] Performed By: #### L [id number] ####[facility] ([facility] [facility] [place] [address] PROTIME-INRon 07-04-2023 INR IN PPP BY COAGULATION ASSAY 1.77 High 0.90-1.10 [facility] Comment on above: Result Comment: [facility] P RECOMMENDED INR FOR WARFARIN THERAPY CONDITION INRPROPHYLAXIS OF VENOUS THROMBOSIS 2-3(HIGH-RISK SURGERY)TREATMENT OF VENOUS THROMBOSIS 2-3TREATMENT OF PULMONARY EMBOLISM 2-3PREVENTION OF SYSTEMIC EMBOLISM: 2-3 ACUTE MYOCARDIAL INFARCTION TISSUE HEART VALVES VALVULAR HEART DISEASE ATRIAL FIBRILLATION RECURRENT SYSTEMIC EMBOLISMMECHANICAL HEART VALVE 2.5-3.5 FROM: ORAL ANTICOAGULANTS. MECHANISM OF ACTION, CLINICAL EFFECTIVENESS, AND OPTIMAL THERAPEUTIC RANGE. CHEST 1995;108:231S-246S. Performed By: #### L [id number] ####[facility] ([facility])[address] [place] [address] PROTHROMBIN TIME (PT) IN PPP BY COAGULATION ASSAY 20.7 Seconds High 12.3-14.8 [facility] Comment on above: Performed By: #### L [id number] ####[facility] ([employer] [facility] [facility] [address] 30on 07-03-2023 30 Normal [facility] ANTI-XA (HEPARIN LEVEL)on HEPARIN UNFRACTIONATED (U/ML) IN PPP BY CHROMOGENIC METHOD 0.12 IU/mL Invalid Interpretation Code 0.3-0.7 [facility] Comment on above: Result Comment: [place] roxaban and Apixaban will interfere with the anti Xa assay used to monitor UFH and LMWH. Performed By: #### L [id number] ####[facility] ([facility] [place] [address] BASIC METABOLIC PANELon Anion gap [Moles/Vol] 11 mmol/L Normal 7-20 [facility] Comment on above: Performed By: #### L [id number] ####[facility] ([facility] [place] [address] Calcium [Mass/Vol] 8.9 mg/dL Normal 8.6-10.3 [facility] Comment on above: Performed By: #### L [id number] ####[facility] ([facility])[address] [place] [address] Chloride [Moles/Vol] 101 mmol/L Normal 98-107 [facility] Comment on above: Performed By: #### L [id number] ####[facility] ([facility])[address] [place] [address] CO2 [Moles/Vol] 28 mmol/L Normal 21-31 [facility] Comment on above: Performed By: #### L [id number] ####[facility] ([facility])[address] [place] [address] Creatinine [Mass/Vol] 1.03 mg/dL Normal 0.70-1.30 [facility] Comment on above: Performed By: #### L [id number] ####[facility] ([facility])[address] [place] [address] GLOMERULAR FILTRATION RATE ML/MIN/1.73 SQ M.PREDICTED 88.5 mL/min/1.73m*2 Normal >60.0 [place] Comment on above: Result Comment: [facility]???s estimated glomerular filtration rate (eGFR) will no [...] group of individuals. Performed By: #### L [id number] ####[facility] ([facility])[address] [place] [address] Glucose [Mass/Vol] 87 mg/dL Normal 70-100 [facility] Comment on above: Performed By: #### L [id number] ####[facility] ([facility] [place] [address] Potassium [Moles/Vol] 4.4 mmol/L Normal 3.5-5.1 [facility] Comment on above: Performed By: #### L [id number] ####[facility] ([facility])[address] [place] [address] Sodium [Moles/Vol] 136 mmol/L Normal 136-145 [facility] Comment on above: Performed By: #### L [id number] ####[facility] ([facility])[address] [place] [address] Urea nitrogen [Mass/Vol] 13 mg/dL Normal 7-25 [facility] Comment on above: Performed By: #### L [id number] ####[facility] ([facility])[address] [place] [address] UREA NITROGEN/CREATININE (MASS RATIO) IN SER/PLAS 12.6 Normal [facility] Comment on above: Performed By: #### L [id number] ####[facility] ([facility])[address] [place] [address] CBCon 07-03-2023 Erythrocyte distribution width (RBC) [Ratio] 15.5 % High 11.5-15.0 [facility] Comment on above: Performed By: #### L [id number] ####[facility] ([facility])[address] [place] [address] ERYTHROCYTE MEAN CORPUSCULAR HEMOGLOBIN CONCENTRATION (G/DL) BY AUTOMATED 31.9 g/dL Low 32.0-35.0 [facility] Comment on above: Performed By: #### L [id number] ####[facility] ([facility])[address] [place] [address] Hematocrit (Bld) [Volume fraction] 25.4 % Low 39.0-55.0 [facility] Comment on above: Performed By: #### L [id number] ####[facility] ([facility])[address] [place] [address] Hemoglobin (Bld) [Mass/Vol] 8.1 g/dL Low 13.0-17.0 [facility] Comment on above: Performed By: #### L [id number] ####[facility] ([facility])[address] [place] [address] MCH (RBC) [Entitic mass] 28.8 pg Normal 27.0-33.0 [facility] Comment on above: Performed By: #### L [id number] ####[facility] ([facility])[address] [place] [address] MCV (RBC) [Entitic vol] 90.4 fL Normal 82.0-98.0 [facility] Comment on above: Performed By: #### L [id number] ####[facility] ([facility])[address] [place] [address] PLATELETS (10*3/UL) IN BLOOD AUTOMATED COUNT 247 10*3/uL Normal 150-400 [facility] Comment on above: Performed By: #### L [id number] ####[facility] ([facility])[address] [place] [address] RBC (Bld) [#/Vol] 2.81 10*6/uL Low 4.20-5.70 [facility] Comment on above: Performed By: #### L [id number] ####[facility] ([facility])[address] [place] [address] WBC (Bld) [#/Vol] 4.31 10*3/uL Normal 4.00-10.60 [facility] Comment on above: Performed By: #### L [id number] ####[facility] ([facility])[address] [place] [address] MAGNESIUMon 07-03-2023 Magnesium [Mass/Vol] 2.0 mg/dL Normal 1.9-2.7 [facility] Comment on above: Performed By: #### L [id number] ####[facility] ([facility])[address] [place] [address] POCT GLUCOSE METER UNSOLICIT ED RESULTSon 07-03-2023 Glucose [Mass/Vol] 127 mg/dL High 70-105 [facility] Comment on above: Order Comment: Waive d Testing in the ED is performed under the ED CLIA certificate #[id number]. Result Comment: [email or web address] Performed By: #### L [id number] ####[facility] ([facility])[address] [place] [address] Glucose [Mass/Vol] 129 mg/dL High 70-105 [facility] Comment on above: Order Comment: Waive d Testing in the ED is performed under the ED CLIA certificate #[id number]. Result Comment: [email or web address] Performed By: #### L [id number] ####[facility] ([facility])[address] [place] [address] Glucose [Mass/Vol] 135 mg/dL High 70-105 [facility] Comment on above: Order Comment: Waive d Testing in the ED is performed under the ED CLIA certificate #[id number]. Result Comment: [email or web address] Performed By: #### L [id number] ####[facility] ([facility])[address] [place] [address] Glucose [Mass/Vol] 99 mg/dL Normal 70-105 [facility] Comment on above: Order Comment: Waive d Testing in the ED is performed under the ED CLIA certificate #[id number]. Result Comment: [facility] [email or web address] Performed By: #### L [id number] ####[facility] ([facility])[address] [place] [address] PROTIME-INRon 07-03-2023 INR IN PPP BY COAGULATION ASSAY 1.62 High 0.90-1.10 [facility] Comment on above: Result Comment: [facility] P RECOMMENDED INR FOR WARFARIN THERAPY CONDITION INRPROPHYLAXIS OF VENOUS THROMBOSIS 2-3(HIGH-RISK SURGERY)TREATMENT OF VENOUS THROMBOSIS 2-3TREATMENT OF PULMONARY EMBOLISM 2-3PREVENTION OF SYSTEMIC EMBOLISM: 2-3 ACUTE MYOCARDIAL INFARCTION TISSUE HEART VALVES VALVULAR HEART DISEASE ATRIAL FIBRILLATION RECURRENT SYSTEMIC EMBOLISMMECHANICAL HEART VALVE 2.5-3.5 FROM: [place]AL ANTICOAGULANTS. MECHANISM OF ACTION, CLINICAL EFFECTIVENESS, AND OPTIMAL THERAPEUTIC RANGE. CHEST 1995;108:231S-246S. Performed By: #### L [id number] ####[facility] ([employer] [place] [address] PROTHROMBIN TIME (PT) IN PPP BY COAGULATION ASSAY 19.3 Seconds High 12.3-14.8 [facility] Comment on above: Performed By: #### L [id number] ####[facility] ([facility])[address] [place] [address] 30on 07-02-2023 30 The patient is Moder ately Stable - Low risk of patient condition declining or worsening The patient's goals for the shift include comfort, rest The clinical goals for the shift include Stable vitals, comfort Normal [facility] 30 Normal [facility] 30 Normal [facility] 30 Normal [facility] ANTI-XA (HEPARIN LEVEL)on HEPARIN UNFRACTIONATED (U/ML) IN PPP BY CHROMOGENIC METHOD 0.47 IU/mL Normal 0.3-0.7 [facility] Comment on above: Result Comment: [place] roxaban and Apixaban will interfere with the anti Xa assay used to monitor UFH and LMWH. Performed By: #### L [id number] ####[facility] ([facility])[address] [place] [address] BASIC METABOLIC PANELon Anion gap [Moles/Vol] 12 mmol/L Normal 7-20 [facility] Comment on above: Performed By: #### L [id number] ####[facility] ([facility])[address] [place] [address] Calcium [Mass/Vol] 8.9 mg/dL Normal 8.6-10.3 [facility] Comment on above: Performed By: #### L [id number] ####[facility] ([facility])[address] [place] [address] Chloride [Moles/Vol] 97 mmol/L Low 98-107 [facility] Comment on above: Performed By: #### L [id number] ####[facility] ([facility])[address] [place] [address] CO2 [Moles/Vol] 28 mmol/L Normal 21-31 [facility] Comment on above: Performed By: #### L [id number] ####[facility] ([facility])[address] [place] [address] Creatinine [Mass/Vol] 1.00 mg/dL Normal 0.70-1.30 [facility] Comment on above: Performed By: #### L [id number] ####[facility] ([facility])[address] [place] [address] GLOMERULAR FILTRATION RATE ML/MIN/1.73 SQ M.PREDICTED 91.7 mL/min/1.73m*2 Normal >60.0 [place] Comment on above: Result Comment: [facility]???s estimated glomerular filtration rate (eGFR) will no [...] group of individuals. Performed By: #### L [id number] ####[facility] ([facility])[address] [place] [address] Glucose [Mass/Vol] 100 mg/dL Normal 70-100 [facility] Comment on above: Performed By: #### L [id number] ####[facility] ([facility])[address] [place] [address] Potassium [Moles/Vol] 3.9 mmol/L Normal 3.5-5.1 [facility] Comment on above: Performed By: #### L [id number] ####[facility] ([facility])[address] [place] [address] Sodium [Moles/Vol] 133 mmol/L Low 136-145 [facility] Comment on above: Performed By: #### L [id number] ####[facility] ([facility])[address] [place] [address] Urea nitrogen [Mass/Vol] 10 mg/dL Normal 7-25 [facility] Comment on above: Performed By: #### L [id number] ####[facility] ([facility])[address] [place] [address] UREA NITROGEN/CREATININE (MASS RATIO) IN SER/PLAS 10.0 Normal [facility] Comment on above: Performed By: #### L [id number] ####[facility] ([facility])[address] [place] [address] CBC WITH AUTO DIFFERENTIALon 07-02-2023 Basophils (Bld) [#/Vol] 0.05 10*3/uL Normal 0.00-0.20 [facility] Comment on above: Performed By: #### L [id number] ####[facility] ([facility])[address] [place] [address] Basophils/100 WBC (Bld) 0.9 % Normal 0.0-1.0 [facility] Comment on above: Performed By: #### L [id number] ####[facility] ([facility])[address] [place] [address] Eosinophils (Bld) [#/Vol] 0.27 10*3/uL Normal 0.00-0.50 [facility] Comment on above: Performed By: #### L [id number] ####[facility] ([facility])[address] [place] [address] Eosinophils/100 WBC (Bld) 4.6 % Normal 0.0-6.0 [facility] Comment on above: Performed By: #### L [id number] ####[facility] ([facility])[address] [place] [address] Erythrocyte distribution width (RBC) [Ratio] 15.4 % High 11.5-15.0 [facility] Comment on above: Performed By: #### L [id number] ####[facility] ([facility])[address] [place] [address] ERYTHROCYTE MEAN CORPUSCULAR HEMOGLOBIN CONCENTRATION (G/DL) BY AUTOMATED 32.7 g/dL Normal 32.0-35.0 [facility] Comment on above: Performed By: #### L [id number] ####[facility] ([facility])[address] [place] [address] Hematocrit (Bld) [Volume fraction] 27.2 % Low 39.0-55.0 [facility] Comment on above: Performed By: #### L [id number] ####[facility] ([facility])[address] [place] [address] Hemoglobin (Bld) [Mass/Vol] 8.9 g/dL Low 13.0-17.0 [facility] Comment on above: Performed By: #### L [id number] ####[facility] ([facility])[address] [place] [address] Immature granulocytes (Bld) [#/Vol] 0.04 10*3/uL Normal 0.00-0.20 [facility] Comment on above: Performed By: #### L [id number] ####[facility] ([facility])[address] [place] [address] Immature granulocytes/100 WBC (Bld) 0.7 % Normal 0.0-1.0 [facility] Comment on above: Performed By: #### L [id number] ####[facility] ([facility])[address] [place] [address] Lymphocytes (Bld) [#/Vol] 1.10 10*3/uL Low 1.20-4.00 [facility] Comment on above: Performed By: #### L [id number] ####[facility] ([facility])[address] [place] [place] [address] Lymphocytes/100 WBC (Bld) 18.8 % Low 20.0-45.0 [facility] Comment on above: Performed By: #### L [id number] ####[facility] ([facility])[address] [place] [address] MCH (RBC) [Entitic mass] 29.0 pg Normal 27.0-33.0 [facility] Comment on above: Performed By: #### L [id number] ####[facility] ([facility])[address] [place] [address] MCV (RBC) [Entitic vol] 88.6 fL Normal 82.0-98.0 [facility] Comment on above: Performed By: #### L [id number] ####[facility] ([facility])[address] [place] [address] Monocytes (Bld) [#/Vol] 0.73 10*3/uL Normal 0.10-1.00 [facility] Comment on above: Performed By: #### L [id number] ####[facility] ([facility])[address] [place] [address] Monocytes/100 WBC (Bld) 12.5 % High 5.0-12.0 [facility] Comment on above: Performed By: #### L [id number] ####[facility] ([facility])[address] [place] [address] Neutrophils (Bld) [#/Vol] 3.67 10*3/uL Normal 1.60-7.60 [facility] Comment on above: Performed By: #### L [id number] ####[facility] ([facility])[address] [place] [address] Neutrophils/100 WBC (Bld) 62.5 % Normal 40.0-72.0 [facility] Comment on above: Performed By: #### L [id number] ####[facility] ([facility])[address] [place] [address] NRBC (PER 100 WBCS) BY AUTOMATED COUNT 0.0 % Normal 0 [facility] Comment on above: Performed By: #### L [id number] ####[facility] ([facility])[address] [place] [address] PLATELETS (10*3/UL) IN BLOOD AUTOMATED COUNT 292 10*3/uL Normal 150-400 [facility] Comment on above: Performed By: #### L [id number] ####[facility] ([facility])[address] [place] [address] RBC (Bld) [#/Vol] 3.07 10*6/uL Low 4.20-5.70 [facility] Comment on above: Performed By: #### L [id number] ####[facility] ([facility])[address] [place] [address] WBC (Bld) [#/Vol] 5.86 10*3/uL Normal 4.00-10.60 [facility] Comment on above: Performed By: #### L [id number] ####[facility] ([facility])[address] [place] [address] MAGNESIUMon 07-02-2023 Magnesium [Mass/Vol] 2.0 mg/dL Normal 1.9-2.7 [facility] Comment on above: Performed By: #### L [id number] ####[facility] ([facility])[address] [place] [address] NURSNOTEon 07-02-2023 NURSNOTE Heparin level 0.47, no need for rate change at this time. Safety Maintained. Normal [facility] POCT GLUCOSE METER UNSOLICIT ED RESULTSon 07-02-2023 Glucose [Mass/Vol] 118 mg/dL High 70-105 [facility] Comment on above: Order Comment: Waive d Testing in the ED is performed under the ED CLIA certificate #[id number]. Result Comment: [email or web address] Performed By: #### L [id number] ####[facility] ([facility])[address] [place] [address] Glucose [Mass/Vol] 154 mg/dL High 70-105 [facility] Comment on above: Order Comment: Waive d Testing in the ED is performed under the ED CLIA certificate #[id number]. Result Comment: [email or web address] [email or web address] Performed By: #### L [id number] ####[facility] ([facility])[address] [place] [address] Glucose [Mass/Vol] 138 mg/dL High 70-105 [facility] Comment on above: Order Comment: Waive d Testing in the ED is performed under the ED CLIA certificate #[id number]. Result Comment: [email or web address] Performed By: #### L [id number] ####[facility] ([facility])[address] [place] [address] Glucose [Mass/Vol] 106 mg/dL High 70-105 [facility] Comment on above: Order Comment: Waive d Testing in the ED is performed under the ED CLIA certificate #[id number]. Result Comment: [email or web address] Performed By: #### L [id number] ####[facility] ([facility])[address] [place] [address] PROTIME-INRon 07-02-2023 INR IN PPP BY COAGULATION ASSAY 1.45 High 0.90-1.10 [facility] Comment on above: Result Comment: [facility] P RECOMMENDED INR FOR WARFARIN THERAPY CONDITION INRPROPHYLAXIS OF VENOUS THROMBOSIS 2-3(HIGH-RISK SURGERY)TREATMENT OF VENOUS THROMBOSIS 2-3TREATMENT OF PULMONARY EMBOLISM 2-3PREVENTION OF SYSTEMIC EMBOLISM: 2-3 ACUTE MYOCARDIAL INFARCTION TISSUE HEART VALVES VALVULAR HEART DISEASE ATRIAL FIBRILLATION RECURRENT SYSTEMIC EMBOLISMMECHANICAL HEART VALVE 2.5-3.5 FROM: ORAL ANTICOAGULANTS. MECHANISM OF ACTION, CLINICAL EFFECTIVENESS, AND OPTIMAL THERAPEUTIC RANGE. CHEST 1995;108:231S-246S. Performed By: #### L [id number] ####[facility] ([facility])[address] [place] [address] PROTHROMBIN TIME (PT) IN PPP BY COAGULATION ASSAY 17.7 Seconds High 12.3-14.8 [facility] Comment on above: Performed By: #### L [id number] ####[facility] ([facility])[address] [place] [address] 30on 07-01-2023 30 Normal [facility] 30 Normal [facility] 30 The patient is Moder ately Stable - Low risk of patient condition declining or worsening The patient's goals for the shift include comfort The clinical goals for the shift include safety Normal [facility] ANTI-XA (HEPARIN LEVEL)on 04 -01-2024 HEPARIN UNFRACTIONATED (U/ML) IN PPP BY CHROMOGENIC METHOD 0.38 IU/mL Normal 0.3-0.7 [facility] Comment on above: Result Comment: [place] roxaban and Apixaban will interfere with the anti Xa assay used to monitor UFH and LMWH. Performed By: #### L [id number] ####[facility] ([facility])[address] [place] [address] BASIC METABOLIC PANELon 04-0 Anion gap [Moles/Vol] 12 mmol/L Normal 7-20 [facility] Comment on above: Performed By: #### L [id number] ####[facility] ([facility])[address] [place] [address] Calcium [Mass/Vol] 8.6 mg/dL Normal 8.6-10.3 [facility] Comment on above: Performed By: #### L [id number] ####[facility] ([facility])[address] [place] [address] Chloride [Moles/Vol] 95 mmol/L Low 98-107 [facility] Comment on above: Performed By: #### L [id number] ####[facility] ([facility])[address] [place] [address] CO2 [Moles/Vol] 30 mmol/L Normal 21-31 [facility] Comment on above: Performed By: #### L [id number] ####[facility] ([facility])[address] [place] [address] Creatinine [Mass/Vol] 0.89 mg/dL Normal 0.70-1.30 [facility] Comment on above: Performed By: #### L [id number] ####[facility] ([facility])[address] [place] [address] GLOMERULAR FILTRATION RATE ML/MIN/1.73 SQ M.PREDICTED 104.4 mL/min/1.73m*2 Normal >60.0 [facility] Comment on above: Result Comment: [facility]???s estimated glomerular filtration rate (eGFR) will no [...] group of individuals. Performed By: #### L [id number] ####[facility] ([facility])[address] [place] [address] Glucose [Mass/Vol] 95 mg/dL Normal 70-100 [facility] Comment on above: Performed By: #### L [id number] ####[facility] ([facility])[address] [place] [address] Potassium [Moles/Vol] 3.6 mmol/L Normal 3.5-5.1 [facility] Comment on above: Performed By: #### L [id number] ####[facility] ([facility])[address] [place] [address] Sodium [Moles/Vol] 133 mmol/L Low 136-145 [facility] Comment on above: Performed By: #### L [id number] ####[facility] ([facility])[address] [place] [address] Urea nitrogen [Mass/Vol] 9 mg/dL Normal 7-25 [facility] Comment on above: Performed By: #### L [id number] ####[facility] ([facility])[address] [place] [address] UREA NITROGEN/CREATININE (MASS RATIO) IN SER/PLAS 10.1 Normal [facility] Comment on above: Performed By: #### L [id number] ####[facility] ([facility])[address] [place] [address] CBCon 07-01-2023 Erythrocyte distribution width (RBC) [Ratio] 15.3 % High 11.5-15.0 [facility] Comment on above: Performed By: #### L [id number] ####[facility] ([facility])[address] [place] [address] ERYTHROCYTE MEAN CORPUSCULAR HEMOGLOBIN CONCENTRATION (G/DL) BY AUTOMATED 33.1 g/dL Normal 32.0-35.0 [facility] Comment on above: Performed By: #### L [id number] ####[facility] ([facility])[address] [place] [address] Hematocrit (Bld) [Volume fraction] 24.2 % Low 39.0-55.0 [facility] Comment on above: Performed By: #### L [id number] ####[facility] ([facility])[address] [place] [address] Hemoglobin (Bld) [Mass/Vol] 8.0 g/dL Low 13.0-17.0 [facility] Comment on above: Performed By: #### L [id number] ####[facility] ([facility])[address] [place] [address] MCH (RBC) [Entitic mass] 29.1 pg Normal 27.0-33.0 [facility] Comment on above: Performed By: #### L [id number] ####[facility] ([facility])[address] [place] [address] MCV (RBC) [Entitic vol] 88.0 fL Normal 82.0-98.0 [facility] Comment on above: Performed By: #### L [id number] ####[facility] ([facility])[address] [place] [address] PLATELETS (10*3/UL) IN BLOOD AUTOMATED COUNT 218 10*3/uL Normal 150-400 [facility] Comment on above: Performed By: #### L [id number] ####[facility] ([facility])[address] [place] [address] RBC (Bld) [#/Vol] 2.75 10*6/uL Low 4.20-5.70 [facility] Comment on above: Performed By: #### L [id number] ####[facility] ([facility])[address] [place] [address] WBC (Bld) [#/Vol] 4.96 10*3/uL Normal 4.00-10.60 [facility] Comment on above: Performed By: #### L [id number] ####[facility] ([facility])[address] [place] [address] MAGNESIUMon 07-01-2023 Magnesium [Mass/Vol] 2.0 mg/dL Normal 1.9-2.7 [facility] Comment on above: Performed By: #### L [id number] ####[facility] ([facility])[address] [place] [address] POCT GLUCOSE METER UNSOLICIT ED RESULTSon 07-01-2023 Glucose [Mass/Vol] 128 mg/dL High 70-105 [facility] Comment on above: Order Comment: Waive d Testing in the ED is performed under the ED CLIA certificate #[id number]. Result Comment: [email or web address] Performed By: #### L [id number] ####[facility] ([facility])[address] [place] [address] Glucose [Mass/Vol] 119 mg/dL High 70-105 [facility] Comment on above: Order Comment: Waive d Testing in the ED is performed under the ED CLIA certificate #[id number]. Result Comment: [email or web address] Performed By: #### L [id number] ####[facility] ([facility])[address] [place] [address] Glucose [Mass/Vol] 151 mg/dL High 70-105 [facility] Comment on above: Order Comment: Waive d Testing in the ED is performed under the ED CLIA certificate #[id number]. Result Comment: [email or web address] Performed By: #### L [id number] ####[facility] ([facility])[address] [place] [address] Glucose [Mass/Vol] 119 mg/dL High 70-105 [facility] Comment on above: Order Comment: Waive d Testing in the ED is performed under the ED CLIA certificate #[id number]. Result Comment: [email or web address] Performed By: #### L [id number] ####[facility] ([facility])[address] [place] [address] Glucose [Mass/Vol] 121 mg/dL High 70-105 [facility] Comment on above: Order Comment: Waive d Testing in the ED is performed under the ED CLIA certificate #[id number]. Result Comment: [email or web address] Performed By: #### L [id number] ####[facility] ([facility])[address] [place] [address] PROTIME-INRon 07-01-2023 INR IN PPP BY COAGULATION ASSAY 1.37 High 0.90-1.10 [facility] Comment on above: Result Comment: [facility] P RECOMMENDED INR FOR WARFARIN THERAPY CONDITION INRPROPHYLAXIS OF VENOUS THROMBOSIS 2-3(HIGH-RISK SURGERY)TREATMENT OF VENOUS THROMBOSIS 2-3TREATMENT OF PULMONARY EMBOLISM 2-3PREVENTION OF SYSTEMIC EMBOLISM: 2-3 ACUTE MYOCARDIAL INFARCTION TISSUE HEART VALVES VALVULAR HEART DISEASE ATRIAL FIBRILLATION RECURRENT SYSTEMIC EMBOLISMMECHANICAL HEART VALVE 2.5-3.5 FROM: ORAL ANTICOAGULANTS. MECHANISM OF ACTION, CLINICAL EFFECTIVENESS, AND OPTIMAL THERAPEUTIC RANGE. CHEST 1995;108:231S-246S. Performed By: #### L [id number] ####[facility] ([facility])[address] [place] [address] PROTHROMBIN TIME (PT) IN PPP BY COAGULATION ASSAY 16.9 Seconds High 12.3-14.8 [facility] Comment on above: Performed By: #### L [id number] ####[facility] ([facility])[address] [place] [address] 30on 06-30-2023 30 Normal [facility] ANTI-XA (HEPARIN LEVEL)on HEPARIN UNFRACTIONATED (U/ML) IN PPP BY CHROMOGENIC METHOD 0.39 IU/mL Normal 0.3-0.7 [facility] Comment on above: Result Comment: [place] roxaban and Apixaban will interfere with the anti Xa assay used to monitor UFH and LMWH. Performed By: #### L [id number] ####[facility] ([facility])[address] [place] [address] BASIC METABOLIC PANELon 06-01 Anion gap [Moles/Vol] 11 mmol/L Normal 7-20 [facility] Comment on above: Performed By: #### L [id number] ####[facility] ([facility])[address] [place] [address] Calcium [Mass/Vol] 8.9 mg/dL Normal 8.6-10.3 [facility] Comment on above: Performed By: #### L [id number] ####[facility] ([facility])[address] [place] [address] Chloride [Moles/Vol] 96 mmol/L Low 98-107 [facility] Comment on above: Performed By: #### L [id number] ####[facility] ([facility])[address] [place] [address] CO2 [Moles/Vol] 30 mmol/L Normal - [facility] Comment on above: Performed By: #### L [id number] ####[facility] ([facility])[address] [place] [address] Creatinine [Mass/Vol] 0.78 mg/dL Normal 0.70-1.30 [facility] Comment on above: Performed By: #### L [id number] ####[facility] ([facility])[address] [place] [address] GLOMERULAR FILTRATION RATE ML/MIN/1.73 SQ M.PREDICTED 108.6 mL/min/1.73m*2 Normal >60.0 [facility] Comment on above: Result Comment: [facility]???s estimated glomerular filtration rate (eGFR) will no [...] group of individuals. Performed By: #### L [id number] ####[facility] ([facility])[address] [place] [address] Glucose [Mass/Vol] 108 mg/dL High 70-100 [facility] Comment on above: Performed By: #### L [id number] ####[facility] ([facility])[address] [place] [address] Potassium [Moles/Vol] 3.9 mmol/L Normal 3.5-5.1 [facility] Comment on above: Performed By: #### L [id number] ####[facility] ([facility])[address] [place] [address] Sodium [Moles/Vol] 133 mmol/L Low 136-145 [facility] Comment on above: Performed By: #### L [id number] ####[facility] ([facility])[address] [place] [address] Urea nitrogen [Mass/Vol] 9 mg/dL Normal 7-25 [facility] Comment on above: Performed By: #### L [id number] ####[facility] ([facility])[address] [place] [address] UREA NITROGEN/CREATININE (MASS RATIO) IN SER/PLAS 11.5 Normal [facility] Comment on above: Performed By: #### L [id number] ####[facility] ([facility])[address] [place] [address] CBCon 06-30-2023 Erythrocyte distribution width (RBC) [Ratio] 15.4 % High 11.5-15.0 [facility] Comment on above: Performed By: #### L [id number] ####[facility] ([facility])[address] [place], [place] [address] ERYTHROCYTE MEAN CORPUSCULAR HEMOGLOBIN CONCENTRATION (G/DL) BY AUTOMATED 33.6 g/dL Normal 32.0-35.0 [facility] Comment on above: Performed By: #### L [id number] ####[facility] ([facility])[address] [place] [address] Hematocrit (Bld) [Volume fraction] 24.4 % Low 39.0-55.0 [facility] Comment on above: Performed By: #### L [id number] ####[facility] ([facility])[address] [place] [address] Hemoglobin (Bld) [Mass/Vol] 8.2 g/dL Low 13.0-17.0 [facility] Comment on above: Performed By: #### L [id number] ####[facility] ([facility])[address] [place] [address] MCH (RBC) [Entitic mass] 28.9 pg Normal 27.0-33.0 [facility] Comment on above: Performed By: #### L [id number] ####[facility] ([facility])[address] [place] [address] MCV (RBC) [Entitic vol] 85.9 fL Normal 82.0-98.0 [facility] Comment on above: Performed By: #### L [id number] ####[facility] ([facility])[address] [place] [address] PLATELETS (10*3/UL) IN BLOOD AUTOMATED COUNT 203 10*3/uL Normal 150-400 [facility] Comment on above: Performed By: #### L [id number] ####[facility] ([facility])[address] [place] [address] RBC (Bld) [#/Vol] 2.84 10*6/uL Low 4.20-5.70 [facility] Comment on above: Performed By: #### L [id number] ####[facility] ([facility])[address] [place] [address] WBC (Bld) [#/Vol] 6.03 10*3/uL Normal 4.00-10.60 [facility] Comment on above: Performed By: #### L [id number] ####[facility] ([facility])[address] [place] [address] CKon 06-30-2023 CREATINE KINASE (U/L) IN SER/PLAS 144.0 U/L Normal 30.0-223.0 [facility] Comment on above: Performed By: #### L [id number] ####[facility] ([facility])[address] [place] [address] MAGNESIUMon 06-30-2023 Magnesium [Mass/Vol] 2.1 mg/dL Normal 1.9-2.7 [facility] Comment on above: Performed By: #### L [id number] ####[facility] ([facility])[address] [place] [address] Magnesium [Mass/Vol] 2.2 mg/dL Normal 1.9-2.7 [facility] Comment on above: Performed By: #### L [id number] ####[facility] ([facility])[address] [place] [address] POCT GLUCOSE METER UNSOLICIT ED RESULTSon 06-30-2023 Glucose [Mass/Vol] 243 mg/dL High 70-105 [facility] Comment on above: Order Comment: Waive d Testing in the ED is performed under the ED CLIA certificate #[id number]. Result Comment: [email or web address] Performed By: #### L [id number] ####[facility] ([facility])[address] [place] [address] Glucose [Mass/Vol] 112 mg/dL High 70-105 [facility] Comment on above: Order Comment: Waive d Testing in the ED is performed under the ED CLIA certificate #[id number]. Result Comment: [email or web address] Performed By: #### L [id number] ####[facility] ([facility])[address] [place] [address] Glucose [Mass/Vol] 124 mg/dL High 70-105 [facility] Comment on above: Order Comment: Waive d Testing in the ED is performed under the ED CLIA certificate #[id number]. Result Comment: [email or web address] Performed By: #### L [id number] ####[facility] ([facility])[address] [place] [address] Glucose [Mass/Vol] 158 mg/dL High 70-105 [facility] Comment on above: Order Comment: Waive d Testing in the ED is performed under the ED CLIA certificate #[id number]. Result Comment: [email or web address] Performed By: #### L [id number] ####[facility] ([facility])[address] [place] [address] POTASSIUMon 06-30-2023 Potassium [Moles/Vol] 4.0 mmol/L Normal 3.5-5.1 [facility] Comment on above: Performed By: #### L [id number] ####[facility] ([facility])[address] [place] [address] PROTIME-INRon 06-30-2023 INR IN PPP BY COAGULATION ASSAY 1.21 High 0.90-1.10 [facility] Comment on above: Result Comment: [facility] P RECOMMENDED INR FOR WARFARIN THERAPY CONDITION INRPROPHYLAXIS OF VENOUS THROMBOSIS 2-3(HIGH-RISK SURGERY)TREATMENT OF VENOUS THROMBOSIS 2-3TREATMENT OF PULMONARY EMBOLISM 2-3PREVENTION OF SYSTEMIC EMBOLISM: 2-3 ACUTE MYOCARDIAL INFARCTION TISSUE HEART VALVES VALVULAR HEART DISEASE ATRIAL FIBRILLATION RECURRENT SYSTEMIC EMBOLISMMECHANICAL HEART VALVE 2.5-3.5 FROM: ORAL ANTICOAGULANTS. MECHANISM OF ACTION, CLINICAL EFFECTIVENESS, AND OPTIMAL THERAPEUTIC RANGE. CHEST 1995;108:231S-246S. Performed By: #### L [id number] ####[facility] ([facility])[address] [place] [address] PROTHROMBIN TIME (PT) IN PPP BY COAGULATION ASSAY 15.4 Seconds High 12.3-14.8 [facility] Comment on above: Performed By: #### L [id number] ####[facility] ([facility])[address] [place] [address] 30on 06-29-2023 30 Normal [facility] 30 Normal [facility] 30 Normal [facility] ANTI-XA (HEPARIN LEVEL)on HEPARIN UNFRACTIONATED (U/ML) IN PPP BY CHROMOGENIC METHOD 0.30 IU/mL Normal 0.3-0.7 [facility] Comment on above: Result Comment: [place] roxaban and Apixaban will interfere with the anti Xa assay used to monitor UFH and LMWH. Performed By: #### L [id number] ####[facility] ([facility])[address] [place] [address] HEPARIN UNFRACTIONATED (U/ML) IN PPP BY CHROMOGENIC METHOD 0.31 IU/mL Normal 0.3-0.7 [facility] Comment on above: Result Comment: [place] roxaban and Apixaban will interfere with the anti Xa assay used to monitor UFH and LMWH. Performed By: #### L [id number] ####[facility] ([facility])[address] [place] [address] BASIC METABOLIC PANELon 06-01 Anion gap [Moles/Vol] 10 mmol/L Normal 7-20 [facility] Comment on above: Performed By: #### L [id number] ####[facility] ([facility])[address] [place] [address] Calcium [Mass/Vol] 8.3 mg/dL Low 8.6-10.3 [facility] Comment on above: Performed By: #### L [id number] ####[facility] ([facility])[address] [place] [address] Chloride [Moles/Vol] 96 mmol/L Low 98-107 [facility] Comment on above: Performed By: #### L [id number] ####[facility] ([facility])[address] [place] [address] CO2 [Moles/Vol] 29 mmol/L Normal 21-31 [facility] Comment on above: Performed By: #### L [id number] ####[facility] ([facility])[address] [place] [address] Creatinine [Mass/Vol] 0.74 mg/dL Normal 0.70-1.30 [facility] Comment on above: Performed By: #### L [id number] ####[facility] ([facility])[address] [place] [address] GLOMERULAR FILTRATION RATE ML/MIN/1.73 SQ M.PREDICTED 110.4 mL/min/1.73m*2 Normal >60.0 [facility] Comment on above: Result Comment: [facility]???s estimated glomerular filtration rate (eGFR) will no [...] group of individuals. Performed By: #### L [id number] ####[facility] ([facility])[address] [place] [address] Glucose [Mass/Vol] 107 mg/dL High 70-100 [facility] Comment on above: Performed By: #### L [id number] ####[facility] ([facility])[address] [place] [address] Potassium [Moles/Vol] 4.3 mmol/L Normal 3.5-5.1 [facility] Comment on above: Performed By: #### L [id number] ####[facility] ([facility])[address] [place] [address] Sodium [Moles/Vol] 131 mmol/L Low 136-145 [facility] Comment on above: Performed By: #### L [id number] ####[facility] ([facility])[address] [place] [address] Urea nitrogen [Mass/Vol] 9 mg/dL Normal 7-25 [facility] Comment on above: Performed By: #### L [id number] ####[facility] ([facility])[address] [place] [address] UREA NITROGEN/CREATININE (MASS RATIO) IN SER/PLAS 12.2 Normal [facility] Comment on above: Performed By: #### L [id number] ####[facility] ([facility])[address] [place] [address] CBCon 06-29-2023 Erythrocyte distribution width (RBC) [Ratio] 15.8 % High 11.5-15.0 [facility] Comment on above: Performed By: #### L [id number] ####[facility] ([facility])[address] [place] [address] ERYTHROCYTE MEAN CORPUSCULAR HEMOGLOBIN CONCENTRATION (G/DL) BY AUTOMATED 33.6 g/dL Normal 32.0-35.0 [facility] Comment on above: Performed By: #### L [id number] ####[facility] ([facility])[address] [place] [address] Hematocrit (Bld) [Volume fraction] 23.5 % Low 39.0-55.0 [facility] Comment on above: Performed By: #### L [id number] ####[facility] ([facility])[address] [place] [address] Hemoglobin (Bld) [Mass/Vol] 7.9 g/dL Low 13.0-17.0 [facility] Comment on above: Performed By: #### L [id number] ####[facility] ([facility])[address] [address] MCH (RBC) [Entitic mass] 29.5 pg Normal 27.0-33.0 [facility] Comment on above: Performed By: #### L [id number] ####[facility] ([facility])[address] [place] [address] MCV (RBC) [Entitic vol] 87.7 fL Normal 82.0-98.0 [facility] Comment on above: Performed By: #### L [id number] ####[facility] ([facility])[address] [place] [address] PLATELETS (10*3/UL) IN BLOOD AUTOMATED COUNT 161 10*3/uL Normal 150-400 [facility] Comment on above: Performed By: #### L [id number] ####[facility] ([facility])[address] [place] [address] RBC (Bld) [#/Vol] 2.68 10*6/uL Low 4.20-5.70 [facility] Comment on above: Performed By: #### L [id number] ####[facility] ([facility])[address] [place] [address] WBC (Bld) [#/Vol] 6.52 10*3/uL Normal 4.00-10.60 [facility] Comment on above: Performed By: #### L [id number] ####[facility] ([facility])[address] [place] [address] MAGNESIUMon 06-29-2023 Magnesium [Mass/Vol] 2.3 mg/dL Normal 1.9-2.7 [facility] Comment on above: Performed By: #### L [id number] ####[facility] ([facility])[address] [place] [address] Magnesium [Mass/Vol] 2.0 mg/dL Normal 1.9-2.7 [facility] Comment on above: Performed By: #### L [id number] ####[facility] ([facility])[address] [place] [address] NURSNOTEon 06-29-2023 NURSNOTE Normal [facility] PHOSPHORUSon 06-29-2023 Magnesium [Mass/Vol] 3.2 mg/dL Normal 2.5-5.0 [facility] Comment on above: Performed By: #### L [id number] ####[facility] ([facility])[address] [place] [address] POCT GLUCOSE METER UNSOLICIT ED RESULTSon 06-29-2023 Glucose [Mass/Vol] 129 mg/dL High 70-105 [facility] Comment on above: Order Comment: Waive d Testing in the ED is performed under the ED CLIA certificate #[id number]. Result Comment: [email or web address] Performed By: #### L [id number] ####[facility] ([facility])[address] [place] [address] Glucose [Mass/Vol] 108 mg/dL High 70-105 [facility] Comment on above: Order Comment: Waive d Testing in the ED is performed under the ED CLIA certificate #[id number]. Result Comment: [email or web address] Performed By: #### L [id number] ####[facility] ([facility])[address] [place] [address] Glucose [Mass/Vol] 142 mg/dL High 70-105 [facility] Comment on above: Order Comment: Waive d Testing in the ED is performed under the ED CLIA certificate #[id number]. Result Comment: [email or web address] Performed By: #### L [id number] ####[facility] ([facility])[address] [place] [address] Glucose [Mass/Vol] 136 mg/dL High 70-105 [facility] Comment on above: Order Comment: Waive d Testing in the ED is performed under the ED CLIA certificate #[id number]. Result Comment: [email or web address] Performed By: #### L [id number] ####[facility] ([place])[address] [place] [address] POTASSIUMon 06-29-2023 Potassium [Moles/Vol] 4.3 mmol/L Normal 3.5-5.1 [facility] Comment on above: Performed By: #### L [id number] ####[facility] ([facility])[address] [place] [address] PROTIME-INRon 06-29-2023 INR IN PPP BY COAGULATION ASSAY 1.13 High 0.90-1.10 [facility] Comment on above: Result Comment: [facility] P RECOMMENDED INR FOR WARFARIN THERAPY CONDITION INRPROPHYLAXIS OF VENOUS THROMBOSIS 2-3(HIGH-RISK SURGERY)TREATMENT OF VENOUS THROMBOSIS 2-3TREATMENT OF PULMONARY EMBOLISM 2-3PREVENTION OF SYSTEMIC EMBOLISM: 2-3 ACUTE MYOCARDIAL INFARCTION TISSUE HEART VALVES VALVULAR HEART DISEASE ATRIAL FIBRILLATION RECURRENT SYSTEMIC EMBOLISMMECHANICAL HEART VALVE 2.5-3.5 FROM: ORAL ANTICOAGULANTS. MECHANISM OF ACTION, CLINICAL EFFECTIVENESS, AND OPTIMAL THERAPEUTIC RANGE. CHEST 1995;108:231S-246S. Performed By: #### L [id number] ####[facility] ([facility])[address] [place] [address] PROTHROMBIN TIME (PT) IN PPP BY COAGULATION ASSAY 14.5 Seconds Normal 12.3-14.8 [facility] Comment on above: Performed By: #### L [id number] ####[facility] ([place])[address] [place] [address] 30on 06-28-2023 30 Normal [facility] ANTI-XA (HEPARIN LEVEL)on HEPARIN UNFRACTIONATED (U/ML) IN PPP BY CHROMOGENIC METHOD 0.25 IU/mL Low 0.3-0.7 [facility] Comment on above: Result Comment: Sofy roxaban and Apixaban will interfere with the anti Xa assay used to monitor UFH and LMWH. Performed By: #### L [id number] ####[facility] ([facility])[address] [place] [address] HEPARIN UNFRACTIONATED (U/ML) IN PPP BY CHROMOGENIC METHOD 0.16 IU/mL Invalid Interpretation Code 0.3-0.7 [facility] Comment on above: Result Comment: Sofy roxaban and Apixaban will interfere with the anti Xa assay used to monitor UFH and LMWH. Performed By: #### L [id number] ####[facility] ([facility])[address] [place] [address] HEPARIN UNFRACTIONATED (U/ML) IN PPP BY CHROMOGENIC METHOD <0.10 Invalid Interpretation Code 0.3-0.7 [facility] Comment on above: Order Comment: Check anti-Xa level every 6 hours while on heparin infusion, or per protocol. Result Comment: [place] roxaban and Apixaban will interfere with the anti Xa assay used to monitor UFH and LMWH. Performed By: #### L [id number] ####[facility] ([facility])[address] [place] [address] APTTon 06-28-2023 ACTIVATED PARTIAL THROMBOPLASTIN TIME IN PPP BY COAGULATION ASSAY 31.5 Seconds Normal 25.0-35.0 [facility] Comment on above: Order Comment: Basel ine aPTT before initiating heparin infusion. Result Comment: Clin ical significance of the APTT is questionable in the presence of heparin. Performed By: #### L [id number] ####[facility] ([facility])[address] [place] [address] BASIC METABOLIC PANELon 05-31 Anion gap [Moles/Vol] 14 mmol/L Normal 7-20 [facility] Comment on above: Performed By: #### L [id number] ####[facility] ([facility])[address] [place] [address] Calcium [Mass/Vol] 8.1 mg/dL Low 8.6-10.3 [facility] Comment on above: Performed By: #### L [id number] ####[facility] ([facility])[address] [place] [address] Chloride [Moles/Vol] 95 mmol/L Low 98-107 [facility] Comment on above: Performed By: #### L [id number] ####[facility] ([facility])[address] [place] [address] CO2 [Moles/Vol] 25 mmol/L Normal 21-31 [facility] Comment on above: Performed By: #### L [id number] ####[facility] ([facility])[address] [place] [address] Creatinine [Mass/Vol] 0.69 mg/dL Low 0.70-1.30 [facility] Comment on above: Performed By: #### L [id number] ####[facility] ([facility])[address] [place] [address] GLOMERULAR FILTRATION RATE ML/MIN/1.73 SQ M.PREDICTED 112.7 mL/min/1.73m*2 Normal >60.0 [facility] Comment on above: Result Comment: [facility]???s estimated glomerular filtration rate (eGFR) will no [...] group of individuals. Performed By: #### L [id number] ####[facility] ([facility])[address] [place] [address] Glucose [Mass/Vol] 103 mg/dL High 70-100 [facility] Comment on above: Performed By: #### L [id number] ####[facility] ([facility])[address] [place] [address] Potassium [Moles/Vol] 3.9 mmol/L Normal 3.5-5.1 [facility] Comment on above: Performed By: #### L [id number] ####[facility] ([facility])[address] [place] [address] Sodium [Moles/Vol] 130 mmol/L Low 136-145 [facility] Comment on above: Performed By: #### L [id number] ####[facility] ([facility])[address] [place] [address] Urea nitrogen [Mass/Vol] 10 mg/dL Normal 7-25 [facility] Comment on above: Performed By: #### L [id number] ####[facility] ([facility])[address] [place] [address] UREA NITROGEN/CREATININE (MASS RATIO) IN SER/PLAS 14.5 Normal [facility] Comment on above: Performed By: #### L [id number] ####[facility] ([facility])[address] [place] [address] Anion gap [Moles/Vol] 8 mmol/L Normal 7-20 [facility] Comment on above: Performed By: #### L [id number] ####[facility] ([facility])[address] [place] [address] Calcium [Mass/Vol] 8.1 mg/dL Low 8.6-10.3 [facility] Comment on above: Performed By: #### L [id number] ####[facility] ([facility])[address] [place] [address] Chloride [Moles/Vol] 98 mmol/L Normal 98-107 [facility] Comment on above: Performed By: #### L [id number] ####[facility] ([facility])[address] [place] [address] CO2 [Moles/Vol] 29 mmol/L Normal 21-31 [facility] Comment on above: Performed By: #### L [id number] ####[facility] ([facility])[address] [place] [address] Creatinine [Mass/Vol] 0.73 mg/dL Normal 0.70-1.30 [facility] Comment on above: Performed By: #### L [id number] ####[facility] ([facility])[address] [place] [address] GLOMERULAR FILTRATION RATE ML/MIN/1.73 SQ M.PREDICTED 110.8 mL/min/1.73m*2 Normal >60.0 [facility] Comment on above: Result Comment: [facility]???s estimated glomerular filtration rate (eGFR) will no [...] group of individuals. Performed By: #### L [id number] ####[facility] ([facility])[address] [place] [address] Glucose [Mass/Vol] 118 mg/dL High 70-100 [facility] Comment on above: Performed By: #### L [id number] ####[facility] ([facility])[address] [place] [address] Potassium [Moles/Vol] 3.8 mmol/L Normal 3.5-5.1 [facility] Comment on above: Performed By: #### L [id number] ####[facility] ([facility])[address] [place] [address] Sodium [Moles/Vol] 131 mmol/L Low 136-145 [facility] Comment on above: Performed By: #### L [id number] ####[facility] ([facility])[address] [place] [address] Urea nitrogen [Mass/Vol] 10 mg/dL Normal 7-25 [facility] Comment on above: Performed By: #### L [id number] ####[facility] ([facility])[address] [place] [address] UREA NITROGEN/CREATININE (MASS RATIO) IN SER/PLAS 13.7 Normal [facility] Comment on above: Performed By: #### L [id number] ####[facility] ([facility])[address] [place] [address] CBCon 06-28-2023 Erythrocyte distribution width (RBC) [Ratio] 15.6 % High 11.5-15.0 [facility] Comment on above: Performed By: #### L [id number] ####[facility] ([facility])[address] [place] [address] ERYTHROCYTE MEAN CORPUSCULAR HEMOGLOBIN CONCENTRATION (G/DL) BY AUTOMATED 33.8 g/dL Normal 32.0-35.0 [facility] Comment on above: Performed By: #### L [id number] ####[facility] ([facility])[address] [place], [place] [address] Hematocrit (Bld) [Volume fraction] 20.4 % Low 39.0-55.0 [facility] Comment on above: Performed By: #### L [id number] ####[facility] ([facility])[address] [place], [place] [address] Hemoglobin (Bld) [Mass/Vol] 6.9 g/dL Low 13.0-17.0 [facility] Comment on above: Performed By: #### L [id number] ####[facility] ([facility])[address] [place], [place] [address] IMMATURE PLATELET FRACTION % 5.6 % Normal 0.8-6.3 [facility] Comment on above: Performed By: #### L [id number] ####[facility] ([facility])[address] [place] [address] MCH (RBC) [Entitic mass] 29.5 pg Normal 27.0-33.0 [facility] Comment on above: Performed By: #### L [id number] ####[facility] ([facility])[address] [place] [address] MCV (RBC) [Entitic vol] 87.2 fL Normal 82.0-98.0 [facility] Comment on above: Performed By: #### L [id number] ####[facility] ([facility])[address] [place] [address] PLATELETS (10*3/UL) IN BLOOD AUTOMATED COUNT 127 10*3/uL Low 150-400 [facility] Comment on above: Performed By: #### L [id number] ####[facility] ([facility])[address] [place] [address] RBC (Bld) [#/Vol] 2.34 10*6/uL Low 4.20-5.70 [facility] Comment on above: Performed By: #### L [id number] ####[facility] ([facility])[address] [place] [address] WBC (Bld) [#/Vol] 6.57 10*3/uL Normal 4.00-10.60 [facility] Comment on above: Performed By: #### L [id number] ####[facility] ([facility])[address] [place] [address] CKon 06-28-2023 CREATINE KINASE (U/L) IN SER/PLAS 560.0 U/L High 30.0-223.0 [facility] Comment on above: Performed By: #### L [id number] ####[facility] ([facility])[address] [place] [address] CONSULTon 06-28-2023 CONSULT Normal [facility] MAGNESIUMon 06-28-2023 Magnesium [Mass/Vol] 1.9 mg/dL Normal 1.9-2.7 [facility] Comment on above: Performed By: #### L [id number] ####[facility] ([facility])[address] [place] [address] PLATELET COUNTon 06-28-2023 IMMATURE PLATELET FRACTION % 6.1 % Normal 0.8-6.3 [facility] Comment on above: Performed By: #### L [id number] ####[facility] ([facility])[address] [place] [address] PLATELETS (10*3/UL) IN BLOOD AUTOMATED COUNT 126 10*3/uL Low 150-400 [facility] Comment on above: Performed By: #### L [id number] ####[facility] ([facility])[address] [place] [address] POCT GLUCOSE METER UNSOLICIT ED RESULTSon 06-28-2023 Glucose [Mass/Vol] 95 mg/dL Normal 70-105 [facility] Comment on above: Order Comment: Waive d Testing in the ED is performed under the ED CLIA certificate #[id number]. Result Comment: [email or web address] Performed By: #### L [id number] ####[facility] ([facility])[address] [place] [address] Glucose [Mass/Vol] 118 mg/dL High 70-105 [facility] Comment on above: Order Comment: Waive d Testing in the ED is performed under the ED CLIA certificate #[id number]. Result Comment: rsuz gabo Performed By: #### L [id number] ####[facility] ([facility])[address] [place] [address] Glucose [Mass/Vol] 111 mg/dL High 70-105 [facility] Comment on above: Order Comment: Waive d Testing in the ED is performed under the ED CLIA certificate #[id number]. Result Comment: cgil lso Performed By: #### L [id number] ####[facility] ([facility])[address] [place] [address] Glucose [Mass/Vol] 160 mg/dL High 70-105 [facility] Comment on above: Order Comment: Waive d Testing in the ED is performed under the ED CLIA certificate #[id number]. Result Comment: lui contreras Performed By: #### L [id number] ####[facility] ([place])[address] [place] [address] PROTIME-INRon 06-28-2023 INR IN PPP BY COAGULATION ASSAY 1.16 High 0.90-1.10 [facility] Comment on above: Result Comment: [facility] P RECOMMENDED INR FOR WARFARIN THERAPY CONDITION INRPROPHYLAXIS OF VENOUS THROMBOSIS 2-3(HIGH-RISK SURGERY)TREATMENT OF VENOUS THROMBOSIS 2-3TREATMENT OF PULMONARY EMBOLISM 2-3PREVENTION OF SYSTEMIC EMBOLISM: 2-3 ACUTE MYOCARDIAL INFARCTION TISSUE HEART VALVES VALVULAR HEART DISEASE ATRIAL FIBRILLATION RECURRENT SYSTEMIC EMBOLISMMECHANICAL HEART VALVE 2.5-3.5 FROM: ORAL ANTICOAGULANTS. MECHANISM OF ACTION, CLINICAL EFFECTIVENESS, AND OPTIMAL THERAPEUTIC RANGE. CHEST 1995;108:231S-246S. Performed By: #### L [id number] ####[facility] ([facility])[address] [place] [address] PROTHROMBIN TIME (PT) IN PPP BY COAGULATION ASSAY 14.8 Seconds Normal 12.3-14.8 [facility] Comment on above: Performed By: #### L [id number] ####[facility] ([place])[address] [place] [address] 30on 06-27-2023 30 Normal [facility] 30 Normal [facility] 30 Normal [facility] APTTon 06-27-2023 ACTIVATED PARTIAL THROMBOPLASTIN TIME IN PPP BY COAGULATION ASSAY 35.5 Seconds High 25.0-35.0 [facility] Comment on above: Result Comment: Clin ical significance of the APTT is questionable in the presence of heparin. Performed By: #### L [id number] ####[facility] ([facility])[address] [place] [address] BASIC METABOLIC PANELon 03- Anion gap [Moles/Vol] 9 mmol/L Normal 7-20 [facility] Comment on above: Performed By: #### L [id number] ####[facility] ([facility])[address] [facility] [place] [address] Calcium [Mass/Vol] 8.3 mg/dL Low 8.6-10.3 [facility] Comment on above: Performed By: #### L [id number] ####[facility] ([facility])[address] [facility] [place] [address] Chloride [Moles/Vol] 104 mmol/L Normal 98-107 [facility] Comment on above: Performed By: #### L [id number] ####[facility] ([facility])[address] [facility] [place] [address] CO2 [Moles/Vol] 26 mmol/L Normal 21-31 [facility] Comment on above: Performed By: #### L [id number] ####[facility] ([facility])[address] [place] [address] Creatinine [Mass/Vol] 0.78 mg/dL Normal 0.70-1.30 [facility] Comment on above: Performed By: #### L [id number] ####[facility] ([facility])[address] [place] [address] GLOMERULAR FILTRATION RATE ML/MIN/1.73 SQ M.PREDICTED 108.6 mL/min/1.73m*2 Normal >60.0 [facility] Comment on above: Result Comment: [facility]???s estimated glomerular filtration rate (eGFR) will no [...] group of individuals. Performed By: #### L [id number] ####[facility] ([facility])[address] [place] [address] Glucose [Mass/Vol] 117 mg/dL High 70-100 [facility] Comment on above: Performed By: #### L [id number] ####[facility] ([facility])[address] [place] [address] Potassium [Moles/Vol] 4.9 mmol/L Normal 3.5-5.1 [facility] Comment on above: Performed By: #### L [id number] ####[facility] ([facility])[address] [place] [address] Sodium [Moles/Vol] 134 mmol/L Low 136-145 [facility] Comment on above: Performed By: #### L [id number] ####[facility] ([facility])[address] [place] [address] Urea nitrogen [Mass/Vol] 10 mg/dL Normal 7-25 [facility] Comment on above: Performed By: #### L [id number] ####[facility] ([facility])[address] [place] [address] UREA NITROGEN/CREATININE (MASS RATIO) IN SER/PLAS 12.8 Normal [facility] Comment on above: Performed By: #### L [id number] ####[facility] ([facility])[address] [place] [address] CBCon 06-27-2023 Erythrocyte distribution width (RBC) [Ratio] 15.9 % High 11.5-15.0 [facility] Comment on above: Performed By: #### L [id number] ####[facility] ([facility])[address] [place] [address] ERYTHROCYTE MEAN CORPUSCULAR HEMOGLOBIN CONCENTRATION (G/DL) BY AUTOMATED 34.4 g/dL Normal 32.0-35.0 [facility] Comment on above: Performed By: #### L [id number] ####[facility] ([facility])[address] [place] [address] Hematocrit (Bld) [Volume fraction] 21.8 % Low 39.0-55.0 [facility] Comment on above: Performed By: #### L [id number] ####[facility] ([facility])[address] [place] [address] Hemoglobin (Bld) [Mass/Vol] 7.5 g/dL Low 13.0-17.0 [facility] Comment on above: Performed By: #### L [id number] ####[facility] ([facility])[address] [place] [address] IMMATURE PLATELET FRACTION % 4.8 % Normal 0.8-6.3 [facility] Comment on above: Performed By: #### L [id number] ####[facility] ([facility])[address] [place] [address] MCH (RBC) [Entitic mass] 30.2 pg Normal 27.0-33.0 [facility] Comment on above: Performed By: #### L [id number] ####[facility] ([facility])[address] [place] [address] MCV (RBC) [Entitic vol] 87.9 fL Normal 82.0-98.0 [facility] Comment on above: Performed By: #### L [id number] ####[facility] ([facility])[address] [place] [address] PLATELETS (10*3/UL) IN BLOOD AUTOMATED COUNT 116 10*3/uL Low 150-400 [facility] Comment on above: Performed By: #### L [id number] ####[facility] ([facility])[address] [place] [address] RBC (Bld) [#/Vol] 2.48 10*6/uL Low 4.20-5.70 [facility] Comment on above: Performed By: #### L [id number] ####[facility] ([facility])[address] [place] [address] WBC (Bld) [#/Vol] 5.34 10*3/uL Normal 4.00-10.60 [facility] Comment on above: Performed By: #### L [id number] ####[facility] ([facility])[address] [place] [address] CONSULTon 06-27-2023 CONSULT Normal [facility] MAGNESIUMon 06-27-2023 Magnesium [Mass/Vol] 2.0 mg/dL Normal 1.9-2.7 [facility] Comment on above: Performed By: #### L [id number] ####[facility] ([facility])[address] [place] [address] PHOSPHORUSon 06-27-2023 Magnesium [Mass/Vol] 4.2 mg/dL Normal 2.5-5.0 [facility] Comment on above: Performed By: #### L [id number] ####[facility] ([facility])[address] [place] [address] POCT GLUCOSE METER UNSOLICIT ED RESULTSon 06-27-2023 Glucose [Mass/Vol] 154 mg/dL High 70-105 [facility] Comment on above: Order Comment: Waive d Testing in the ED is performed under the ED CLIA certificate #[id number]. Result Comment: mer jha Performed By: #### L [id number] ####[facility] ([facility])[address] [place] [address] Glucose [Mass/Vol] 114 mg/dL High 70-105 [facility] Comment on above: Order Comment: Waive d Testing in the ED is performed under the ED CLIA certificate #[id number]. Result Comment: mer jha Performed By: #### L [id number] ####[facility] ([facility])[address] [place] [address] Glucose [Mass/Vol] 108 mg/dL High 70-105 [facility] Comment on above: Order Comment: Waive d Testing in the ED is performed under the ED CLIA certificate #[id number]. Result Comment: tsie [email or web address] Performed By: #### L [id number] ####[facility] ([facility])[address] [place] [address] Glucose [Mass/Vol] 112 mg/dL High 70-105 [facility] Comment on above: Order Comment: Waive d Testing in the ED is performed under the ED CLIA certificate #[id number]. Result Comment: mmcc gabo Performed By: #### L [id number] ####[facility] ([facility])[address] [place] [address] Glucose [Mass/Vol] 111 mg/dL High 70-105 [facility] Comment on above: Order Comment: Waive d Testing in the ED is performed under the ED CLIA certificate #[id number]. Result Comment: mmcc gabo Performed By: #### L [id number] ####[facility] ([facility])[address] [place] [address] Glucose [Mass/Vol] 120 mg/dL High 70-105 [facility] Comment on above: Order Comment: Waive d Testing in the ED is performed under the ED CLIA certificate #[id number]. Result Comment: mmcc gabo Performed By: #### L [id number] ####[facility] ([facility])[address] [place] [address] Glucose [Mass/Vol] 128 mg/dL High 70-105 [facility] Comment on above: Order Comment: Waive d Testing in the ED is performed under the ED CLIA certificate #[id number]. Result Comment: mmcc gabo Performed By: #### L [id number] ####[facility] ([facility])[address] [place] [address] Glucose [Mass/Vol] 132 mg/dL High 70-105 [facility] Comment on above: Order Comment: Waive d Testing in the ED is performed under the ED CLIA certificate #[id number]. Result Comment: mmcc agbo Performed By: #### L [id number] ####[facility] ([facility])[address] [place] [address] PROTIME-INRon 06-27-2023 INR IN PPP BY COAGULATION ASSAY 1.30 High 0.90-1.10 [facility] Comment on above: Order Comment: On ar rival to SICU Result Comment: ACCC P RECOMMENDED INR FOR WARFARIN THERAPY CONDITION INRPROPHYLAXIS OF VENOUS THROMBOSIS 2-3(HIGH-RISK SURGERY)TREATMENT OF VENOUS THROMBOSIS 2-3TREATMENT OF PULMONARY EMBOLISM 2-3PREVENTION OF SYSTEMIC EMBOLISM: 2-3 ACUTE MYOCARDIAL INFARCTION TISSUE HEART VALVES VALVULAR HEART DISEASE ATRIAL FIBRILLATION RECURRENT SYSTEMIC EMBOLISMMECHANICAL HEART VALVE 2.5-3.5 FROM: ORAL ANTICOAGULANTS. MECHANISM OF ACTION, CLINICAL EFFECTIVENESS, AND OPTIMAL THERAPEUTIC RANGE. CHEST 1995;108:231S-246S. Performed By: #### L [id number] ####[facility] ([facility])[address] [place] [address] PROTHROMBIN TIME (PT) IN PPP BY COAGULATION ASSAY 16.3 Seconds High 12.3-14.8 [facility] Comment on above: Order Comment: On ar rival to SICU Performed By: #### L [id number] ####[facility] ([facility])[address] [place] [address] 30on 06-26-2023 30 Normal [facility] 30 Normal [facility] ANESon 06-26-2023 ANES Normal [facility] APTTon 06-26-2023 ACTIVATED PARTIAL THROMBOPLASTIN TIME IN PPP BY COAGULATION ASSAY 30.1 Seconds Normal 25.0-35.0 [facility] Comment on above: Result Comment: Clin ical significance of the APTT is questionable in the presence of heparin. Performed By: #### L [id number] ####[facility] ([facility])[address] [place] [address] ACTIVATED PARTIAL THROMBOPLASTIN TIME IN PPP BY COAGULATION ASSAY 29.1 Seconds Normal 25.0-35.0 [facility] Comment on above: Order Comment: Pre-o p diagnosis:Aortic valve disorder [I35.9] Result Comment: Clin ical significance of the APTT is questionable in the presence of heparin. Performed By: #### L [id number] ####[facility] ([facility])[address] [place] [address] ACTIVATED PARTIAL THROMBOPLASTIN TIME IN PPP BY COAGULATION ASSAY 31.8 Seconds Normal 25.0-35.0 [facility] Comment on above: Result Comment: Clin ical significance of the APTT is questionable in the presence of heparin. Performed By: #### L [id number] ####[facility] ([facility])[address] [place] [address] ARTERIAL BLOOD GAS WITH IONI ZED CALCIUMon 06-26-2023 Base excess Calc (Bld) [Moles/Vol] -3.3000 mmol/L Low -2.0-3.0 [facility] Comment on above: Performed By: #### L [id number] ####[facility] [id number] [place] [address] [place] CALCIUM IONIZED (MMOL/L) IN BLOOD 1.09 mmol/L Low 1.15-1.33 [facility] Comment on above: Performed By: #### L [id number] ####[facility] [id number] [place] [address] [place] CO2 (Bld) [Partial pressure] 35 mm[Hg] Normal 35-48 [facility] Comment on above: Performed By: #### L [id number] ####[facility] [id number] [place] [address] [place] FIO2 40 % Normal [facility] Comment on above: Performed By: #### L [id number] ####[facility] [id number] [place], [place] [address] HCO3 (Bld) [Moles/Vol] 21.2 mmol/L Normal 21.0-28.0 [facility] Comment on above: Performed By: #### L [id number] ####[facility] [id number] [place] [address] [facility] Oxygen (Bld) [Partial pressure] 118 mm[Hg] High 83-100 [facility] Comment on above: Performed By: #### L [id number] ####[facility] [id number] [place], [place] [address] OXYGEN SATURATION (%) IN ARTERIAL BLOOD 98.8 % High 94.0-98.0 [facility] Comment on above: Performed By: #### L [id number] ####[facility] [id number] [address] PEEP 6 cmH2O Normal [facility] Comment on above: Performed By: #### L [id number] ####[facility] [id number] [place] [id number] pH (Bld) 7.39 [pH] Normal 7.35-7.45 [facility] Comment on above: Performed By: #### L [id number] ####[facility] [id number] [place] [id number] PRESSURE SUPPORT [address] [facility] Comment on above: Performed By: #### L [id number] ####[facility] [id number] [place], [place] [address] SOURCE OF OXYGEN Bi-PAP Normal [facility] Comment on above: Performed By: #### L [id number] ####[facility] [id number] [address] Base excess Calc (Bld) [Moles/Vol] -5.8000 mmol/L Low -2.0-3.0 [facility] Comment on above: Performed By: #### L [id number] ####[facility] [id number] [place] [id number] CALCIUM IONIZED (MMOL/L) IN BLOOD 1.19 mmol/L Normal 1.15-1.33 [facility] Comment on above: Performed By: #### L [id number] ####[facility] [id number] [address] CO2 (Bld) [Partial pressure] 44 mm[Hg] Normal 35-48 [facility] Comment on above: Performed By: #### L [id number] ####[facility] [id number] [address] FIO2 40 % Normal [facility] Comment on above: Performed By: #### L [id number] ####[facility] [id number] [address] HCO3 (Bld) [Moles/Vol] 20.7 mmol/L Low 21.0-28.0 [facility] Comment on above: Performed By: #### L [id number] ####[facility] [id number] [address] Oxygen (Bld) [Partial pressure] 102 mm[Hg] High 83-100 [facility] Comment on above: Performed By: #### L [id number] ####[facility] [id number] [address] OXYGEN SATURATION (%) IN ARTERIAL BLOOD 99.5 % High 94.0-98.0 [facility] Comment on above: Performed By: #### L [id number] ####[facility] [id number] [address] PEEP 6 cmH2O Normal [facility] Comment on above: Performed By: #### L [id number] ####[facility] [id number] [address] pH (Bld) 7.28 [pH] Low 7.35-7.45 [facility] Comment on above: Performed By: #### L [id number] ####[facility] [id number] [place] [address] PRESSURE SUPPORT 12 Normal [facility] Comment on above: Performed By: #### L [id number] ####[facility] [id number] [place] [address] [place] SOURCE OF OXYGEN Bi-PAP Normal [facility] Comment on above: Performed By: #### L [id number] ####[facility] [id number] [place] [address] [place] BASIC METABOLIC PANELon 03-2 Anion gap [Moles/Vol] 10 mmol/L Normal - [facility] Comment on above: Performed By: #### L [id number] ####[facility] (BEAKER)[address] [place] [address] Calcium [Mass/Vol] 8.1 mg/dL Low 8.6-10.3 [facility] Comment on above: Performed By: #### L [id number] ####[facility] (BEAKER)[address] [place] [address] Chloride [Moles/Vol] 108 mmol/L High 98-107 [facility] Comment on above: Performed By: #### L [id number] ####[facility] (BEAKER)[address] [place] [address] CO2 [Moles/Vol] 24 mmol/L Normal - [facility] Comment on above: Performed By: #### L [id number] ####[facility] (BEAKER)[address] [place] [address] Creatinine [Mass/Vol] 0.72 mg/dL Normal 0.70-1.30 [facility] Comment on above: Performed By: #### L [id number] ####[facility] (BEAKER)[address] [place] [address] GLOMERULAR FILTRATION RATE ML/MIN/1.73 SQ M.PREDICTED 111.3 mL/min/1.73m*2 Normal >60.0 [facility] Comment on above: Result Comment: [facility]???s estimated glomerular filtration rate (eGFR) will no [...] group of individuals. Performed By: #### L [id number] ####[facility] ([facility])[address] [place] [address] Glucose [Mass/Vol] 151 mg/dL High 70-100 [facility] Comment on above: Performed By: #### L [id number] ####[facility] ([facility])[address] [place] [address] Potassium [Moles/Vol] 4.1 mmol/L Normal 3.5-5.1 [facility] Comment on above: Performed By: #### L [id number] ####[facility] ([facility])[address] [place] [address] Sodium [Moles/Vol] 138 mmol/L Normal 136-145 [facility] Comment on above: Performed By: #### L [id number] ####[facility] ([facility])[address] [place] [address] Urea nitrogen [Mass/Vol] 11 mg/dL Normal 7-25 [facility] Comment on above: Performed By: #### L [id number] ####[facility] ([facility])[address] [place] [address] UREA NITROGEN/CREATININE (MASS RATIO) IN SER/PLAS 15.3 Normal [facility] Comment on above: Performed By: #### L [id number] ####[facility] ([facility])[address] [place] [address] Anion gap [Moles/Vol] 14 mmol/L Normal 7-20 [facility] Comment on above: Order Comment: Pre-o p diagnosis:Aortic valve disorder [I35.9] Performed By: #### L [id number] ####[facility] ([facility])[address] [place] [address] Calcium [Mass/Vol] 7.9 mg/dL Low 8.6-10.3 [facility] Comment on above: Order Comment: Pre-o p diagnosis:Aortic valve disorder [I35.9] Performed By: #### L [id number] ####[facility] ([facility])[address] [facility] [place] [address] Chloride [Moles/Vol] 107 mmol/L Normal 98-107 [facility] Comment on above: Order Comment: Pre-o p diagnosis:Aortic valve disorder [I35.9] Performed By: #### L [id number] ####[facility] ([facility])[address] [facility] [address] CO2 [Moles/Vol] 21 mmol/L Normal 21-31 [facility] Comment on above: Order Comment: Pre-o p diagnosis:Aortic valve disorder [I35.9] Performed By: #### L [id number] ####[facility] ([facility])[address] [place] [address] Creatinine [Mass/Vol] 0.76 mg/dL Normal 0.70-1.30 [facility] Comment on above: Order Comment: Pre-o p diagnosis:Aortic valve disorder [I35.9] Performed By: #### L [id number] ####[facility] ([facility])[address] [place] [address] GLOMERULAR FILTRATION RATE ML/MIN/1.73 SQ M.PREDICTED 109.5 mL/min/1.73m*2 Normal >60.0 [facility] Comment on above: Order Comment: Pre-o p diagnosis:Aortic valve disorder [I35.9] Result Comment: [facility]???s estimated glomerular filtration rate (eGFR) will no [...] group of individuals. Performed By: #### L [id number] ####[facility] ([facility])[address] [place] [address] Glucose [Mass/Vol] 194 mg/dL High 70-100 [facility] Comment on above: Order Comment: Pre-o p diagnosis:Aortic valve disorder [I35.9] Performed By: #### L [id number] ####[facility] ([facility])[address] [place] [address] Potassium [Moles/Vol] 3.9 mmol/L Normal 3.5-5.1 [facility] Comment on above: Order Comment: Pre-o p diagnosis:Aortic valve disorder [I35.9] Performed By: #### L [id number] ####[facility] ([facility])[address] [place] [address] Sodium [Moles/Vol] 138 mmol/L Normal 136-145 [facility] Comment on above: Order Comment: Pre-o p diagnosis:Aortic valve disorder [I35.9] Performed By: #### L [id number] ####[facility] ([facility])[address] [place] [address] Urea nitrogen [Mass/Vol] 11 mg/dL Normal 7-25 [facility] Comment on above: Order Comment: Pre-o p diagnosis:Aortic valve disorder [I35.9] Performed By: #### L [id number] ####[facility] ([facility])[address] [facility] [address] UREA NITROGEN/CREATININE (MASS RATIO) IN SER/PLAS 14.5 Normal [facility] Comment on above: Order Comment: Pre-o p diagnosis:Aortic valve disorder [I35.9] Performed By: #### L [id number] ####[facility] ([facility])[address] [place] [address] CBCon 06-26-2023 Erythrocyte distribution width (RBC) [Ratio] 15.5 % High 11.5-15.0 [facility] Comment on above: Performed By: #### L [id number] ####[facility] ([facility])[address] [place] [address] ERYTHROCYTE MEAN CORPUSCULAR HEMOGLOBIN CONCENTRATION (G/DL) BY AUTOMATED 34.0 g/dL Normal 32.0-35.0 [facility] Comment on above: Performed By: #### L [id number] ####[facility] ([facility])[address] [place] [address] Hematocrit (Bld) [Volume fraction] 29.4 % Low 39.0-55.0 [facility] Comment on above: Performed By: #### L [id number] ####[facility] ([facility])[address] [place] [address] Hemoglobin (Bld) [Mass/Vol] 10.0 g/dL Low 13.0-17.0 [facility] Comment on above: Performed By: #### L [id number] ####[facility] ([facility])[address] [place] [address] IMMATURE PLATELET FRACTION % 3.8 % Normal 0.8-6.3 [facility] Comment on above: Performed By: #### L [id number] ####[facility] ([facility])[address] [place] [address] MCH (RBC) [Entitic mass] 29.6 pg Normal 27.0-33.0 [facility] Comment on above: Performed By: #### L [id number] ####[facility] ([facility])[address] [place] [address] MCV (RBC) [Entitic vol] 87.0 fL Normal 82.0-98.0 [facility] Comment on above: Performed By: #### L [id number] ####[facility] ([facility])[address] [place] [address] PLATELETS (10*3/UL) IN BLOOD AUTOMATED COUNT 108 10*3/uL Low 150-400 [facility] Comment on above: Performed By: #### L [id number] ####[facility] ([facility])[address] [place] [address] RBC (Bld) [#/Vol] 3.38 10*6/uL Low 4.20-5.70 [facility] Comment on above: Performed By: #### L [id number] ####[facility] ([facility])[address] [place] [address] WBC (Bld) [#/Vol] 6.87 10*3/uL Normal 4.00-10.60 [facility] Comment on above: Performed By: #### L [id number] ####[facility] ([facility])[address] [place] [address] Erythrocyte distribution width (RBC) [Ratio] 15.3 % High 11.5-15.0 [facility] Comment on above: Order Comment: Pre-o p diagnosis:Aortic valve disorder [I35.9] Performed By: #### L [id number] ####[facility] ([facility])[address] [place] [address] ERYTHROCYTE MEAN CORPUSCULAR HEMOGLOBIN CONCENTRATION (G/DL) BY AUTOMATED 34.5 g/dL Normal 32.0-35.0 [facility] Comment on above: Order Comment: Pre-o p diagnosis:Aortic valve disorder [I35.9] Performed By: #### L [id number] ####[facility] ([facility])[address] [place] [address] Hematocrit (Bld) [Volume fraction] 29.3 % Low 39.0-55.0 [facility] Comment on above: Order Comment: Pre-o p diagnosis:Aortic valve disorder [I35.9] Performed By: #### L [id number] ####[facility] ([facility])[address] [place] [address] Hemoglobin (Bld) [Mass/Vol] 10.1 g/dL Low 13.0-17.0 [facility] Comment on above: Order Comment: Pre-o p diagnosis:Aortic valve disorder [I35.9] Performed By: #### L [id number] ####[facility] ([facility])[address] [place] [address] IMMATURE PLATELET FRACTION % 4.1 % Normal 0.8-6.3 [facility] Comment on above: Order Comment: Pre-o p diagnosis:Aortic valve disorder [I35.9] Performed By: #### L [id number] ####[facility] ([facility])[address] [place] [address] MCH (RBC) [Entitic mass] 29.9 pg Normal 27.0-33.0 [facility] Comment on above: Order Comment: Pre-o p diagnosis:Aortic valve disorder [I35.9] Performed By: #### L [id number] ####[facility] ([facility])[address] [place] [address] MCV (RBC) [Entitic vol] 86.7 fL Normal 82.0-98.0 [facility] Comment on above: Order Comment: Pre-o p diagnosis:Aortic valve disorder [I35.9] Performed By: #### L [id number] ####[facility] ([facility])[address] [place] [address] PLATELETS (10*3/UL) IN BLOOD AUTOMATED COUNT 135 10*3/uL Low 150-400 [facility] Comment on above: Order Comment: Pre-o p diagnosis:Aortic valve disorder [I35.9] Performed By: #### L [id number] ####[facility] ([facility])[address] [place] [address] RBC (Bld) [#/Vol] 3.38 10*6/uL Low 4.20-5.70 [facility] Comment on above: Order Comment: Pre-o p diagnosis:Aortic valve disorder [I35.9] Performed By: #### L [id number] ####[facility] ([facility])[address] [place] [address] WBC (Bld) [#/Vol] 9.24 10*3/uL Normal 4.00-10.60 [facility] Comment on above: Order Comment: Pre-o p diagnosis:Aortic valve disorder [I35.9] Performed By: #### L [id number] ####[facility] ([facility])[address] [place] [address] CBC WITH AUTO DIFFERENTIALon 06-26-2023 Basophils (Bld) [#/Vol] 0.04 10*3/uL Normal 0.00-0.20 [facility] Comment on above: Performed By: #### L [id number] ####[facility] ([facility])[address] [place] [address] Basophils/100 WBC (Bld) 0.8 % Normal 0.0-1.0 [facility] Comment on above: Performed By: #### L [id number] ####[facility] ([facility])[address] [place] [address] Eosinophils (Bld) [#/Vol] 0.28 10*3/uL Normal 0.00-0.50 [facility] Comment on above: Performed By: #### L [id number] ####[facility] ([facility])[address] [place] [address] Eosinophils/100 WBC (Bld) 5.9 % Normal 0.0-6.0 [facility] Comment on above: Performed By: #### L [id number] ####[facility] ([facility])[address] [place] [address] Erythrocyte distribution width (RBC) [Ratio] 15.9 % High 11.5-15.0 [facility] Comment on above: Performed By: #### L [id number] ####[facility] ([facility])[address] [place] [address] ERYTHROCYTE MEAN CORPUSCULAR HEMOGLOBIN CONCENTRATION (G/DL) BY AUTOMATED 33.7 g/dL Normal 32.0-35.0 [facility] Comment on above: Performed By: #### L [id number] ####[facility] ([facility])[address] [place] [address] Hematocrit (Bld) [Volume fraction] 32.6 % Low 39.0-55.0 [facility] Comment on above: Performed By: #### L [id number] ####[facility] (BEAKER)[address] [place] [address] Hemoglobin (Bld) [Mass/Vol] 11.0 g/dL Low 13.0-17.0 [facility] Comment on above: Performed By: #### L [id number] ####[facility] (BEAKER)[address] [place] [address] Immature granulocytes (Bld) [#/Vol] 0.01 10*3/uL Normal 0.00-0.20 [facility] Comment on above: Performed By: #### L [id number] ####[facility] ([facility])[address] [place] [address] Immature granulocytes/100 WBC (Bld) 0.2 % Normal 0.0-1.0 [facility] Comment on above: Performed By: #### L [id number] ####[facility] (BEAKER)[address] [place] [address] Lymphocytes (Bld) [#/Vol] 0.86 10*3/uL Low 1.20-4.00 [facility] Comment on above: Performed By: #### L [id number] ####[facility] (BEAKER)[address] [place] [address] Lymphocytes/100 WBC (Bld) 18.3 % Low 20.0-45.0 [facility] Comment on above: Performed By: #### L [id number] ####[facility] (BEAKER)[address] [place] [address] MCH (RBC) [Entitic mass] 29.4 pg Normal 27.0-33.0 [facility] Comment on above: Performed By: #### L [id number] ####[facility] (BEAKER)[address] [place] [address] MCV (RBC) [Entitic vol] 87.2 fL Normal 82.0-98.0 [facility] Comment on above: Performed By: #### L [id number] ####[facility] (BEAKER)[address] [place] [address] Monocytes (Bld) [#/Vol] 0.50 10*3/uL Normal 0.10-1.00 [facility] Comment on above: Performed By: #### L [id number] ####[facility] (BEAKER)[address] [place] [address] Monocytes/100 WBC (Bld) 10.6 % Normal 5.0-12.0 [facility] Comment on above: Performed By: #### L [id number] ####[facility] (BEAKER)[address] [place] [address] Neutrophils (Bld) [#/Vol] 3.02 10*3/uL Normal 1.60-7.60 [facility] Comment on above: Performed By: #### L [id number] ####[facility] (BEAKER)[address] [place] [address] Neutrophils/100 WBC (Bld) 64.2 % Normal 40.0-72.0 [facility] Comment on above: Performed By: #### L [id number] ####[facility] (BEAKER)[address] [place] [address] NRBC (PER 100 WBCS) BY AUTOMATED COUNT 0.0 % Normal 0 [facility] Comment on above: Performed By: #### L [id number] ####[facility] (BEAKER)[address] [place] [address] PLATELETS (10*3/UL) IN BLOOD AUTOMATED COUNT 159 10*3/uL Normal 150-400 [facility] Comment on above: Performed By: #### L [id number] ####[facility] (BEAKER)[address] [place] [address] RBC (Bld) [#/Vol] 3.74 10*6/uL Low 4.20-5.70 [facility] Comment on above: Performed By: #### L [id number] ####[facility] (BEAKER)[address] [place] [address] WBC (Bld) [#/Vol] 4.71 10*3/uL Normal 4.00-10.60 [facility] Comment on above: Performed By: #### L [id number] ####[facility] ([facility])[address] [facility] [address] CO-OXIMETRYon 06-26-2023 CARBOXYHEMOGLOBIN/HE MOGLOBIN TOTAL % IN BLOOD 2.3 % Normal [facility] Comment on above: Performed By: #### L [id number] ####[facility] [id number] [place] [address] [facility] Hemoglobin (Bld) [Mass/Vol] 9.5 g/dL Normal [facility] Comment on above: Performed By: #### L [id number] ####[facility] [id number] [place] [address] [place] METHEMOGLOBIN/100 IN BLOOD 0.5 % Normal 0.0-1.5 [facility] Comment on above: Performed By: #### L [id number] ####[facility] [id number] [place] [address] [place] Oxygen saturation in Blood 61.9 % Normal [facility] Comment on above: Performed By: #### L [id number] ####[facility] [id number] [place] [address] [place] OXYGENATED HEMOGLOBIN IN BLOOD 60.2 % Normal [place] Comment on above: Performed By: #### L [id number] ####[facility] [id number] [place] [address] [facility] COMPREHENSIVE METABOLIC PANE Braulio 06-26-2023 Albumin [Mass/Vol] 4.1 g/dL Normal 3.5-5.7 [facility] Comment on above: Performed By: #### L [id number] ####[facility] ([facility])[address] [place] [address] ALP [Catalytic activity/Vol] 51 U/L Normal 34-104 [facility] Comment on above: Performed By: #### L [id number] ####[facility] ([facility])[address] [place] [address] ALT [Catalytic activity/Vol] 13 U/L Normal 7-52 [facility] Comment on above: Performed By: #### L [id number] ####[facility] (BEAKER)[address] [place] [address] Anion gap [Moles/Vol] 10 mmol/L Normal 7-20 [facility] Comment on above: Performed By: #### L [id number] ####[facility] ([facility])[address] [place] [address] AST [Catalytic activity/Vol] 12 U/L Low 13-39 [facility] Comment on above: Performed By: #### L [id number] ####[facility] ([facility])[address] [place] [address] Bilirubin [Mass/Vol] 0.9 mg/dL Normal 0.3-1.0 [facility] Comment on above: Performed By: #### L [id number] ####[facility] ([facility])[address] [place] [address] Calcium [Mass/Vol] 8.6 mg/dL Normal 8.6-10.3 [facility] Comment on above: Performed By: #### L [id number] ####[facility] ([facility])[address] [place] [address] Chloride [Moles/Vol] 104 mmol/L Normal 98-107 [facility] Comment on above: Performed By: #### L [id number] ####[facility] ([facility])[address] [place] [address] CO2 [Moles/Vol] 26 mmol/L Normal 21-31 [facility] Comment on above: Performed By: #### L [id number] ####[facility] ([facility])[address] [place] [address] Creatinine [Mass/Vol] 0.82 mg/dL Normal 0.70-1.30 [facility] Comment on above: Performed By: #### L [id number] ####[facility] ([facility])[address] [place] [address] GLOMERULAR FILTRATION RATE ML/MIN/1.73 SQ M.PREDICTED 107.0 mL/min/1.73m*2 Normal >60.0 [facility] Comment on above: Result Comment: [facility]???s estimated glomerular filtration rate (eGFR) will no [...] of individuals. Performed By: #### L [id number] ####[facility] ([facility])[address] [place] [address] Glucose [Mass/Vol] 97 mg/dL Normal 70-100 [facility] Comment on above: Performed By: #### L [id number] ####[facility] ([facility])[address] [place] [address] Potassium [Moles/Vol] 4.0 mmol/L Normal 3.5-5.1 [facility] Comment on above: Performed By: #### L [id number] ####[facility] ([facility])[address] [place] [address] Protein [Mass/Vol] 6.0 g/dL Normal 6.0-8.3 [facility] Comment on above: Performed By: #### L [id number] ####[facility] ([facility])[address] [place] [address] Sodium [Moles/Vol] 136 mmol/L Normal 136-145 [facility] Comment on above: Performed By: #### L [id number] ####[facility] ([facility])[address] [place] [address] Urea nitrogen [Mass/Vol] 12 mg/dL Normal 7-25 [facility] Comment on above: Performed By: #### L [id number] ####[facility] ([facility])[address] [place] [address] UREA NITROGEN/CREATININE (MASS RATIO) IN SER/PLAS 14.6 Normal [facility] Comment on above: Performed By: #### L [id number] ####[facility] ([facility])[address] [place] [address] CONSULTon 06-26-2023 CONSULT Normal [facility] DEVICE CULTUREon 06-26-2023 Bacteria identified Cx Nom (Unsp spec) No growth at 18-24 hours Normal [facility] Comment on above: Order Comment: RIGHT ARM PICC LINE CULTURE Performed By: #### D EVICE CULTURE ####[facility] ([facility])[address] [place] [address] FIBRINOGENon 06-26-2023 Magnesium [Mass/Vol] 402 mg/dL Normal 150-425 [facility] Comment on above: Order Comment: Pre-o p diagnosis:Aortic valve disorder [I35.9] Performed By: #### L [id number] ####[facility] ([facility])[address] [place] [address] HISTOLOGY - TISSUE EXAMon LAB AP CASE REPORT Normal [facility] Comment on above: Order Comment: Pre-o p diagnosis:Aortic valve disorder [I35.9] Result Comment: Surg ical Pathology Case: [id number] Provider: Paul George MD Collected: 06/26/2023 1153Ordering Location: [facility] Main Operating Room Received: 06/26/2023 1354Pathologist: LILIA Prakashpecimen: Other, AORTIC VALVE LEAFLET FOR HISTOLOGY Performed By: #### L [id number] ####[facility] ([facility])[address] [place] [address] LAB AP CLINICAL INFORMATION Normal [facility] Comment on above: Order Comment: Pre-o p diagnosis:Aortic valve disorder [I35.9] Result Comment: Post -Op HdfkfrlrpN00.9 - Aortic valve disorder [ICD-10-CM] Performed By: #### L [id number] ####[facility] ([facility])[address] [place] [address] LAB AP GROSS DESCRIPTION A. Other. [facility] Comment on above: Order Comment: Pre-o p diagnosis:Aortic valve disorder [I35.9] Result Comment: Part A is received in formalin labeled with the patient's name Nehal Baig and aortic valve leaflet for histology. It consists of 2.9 x 1.5 x 0.1 cm kaufman-yellow, semitranslucent, rubbery semilunar valve cusp with a centralized, ragged, yellow to pink out pouching measuring 1.2 x 1.2 x 0.9 cm with transmural defect. The remainder of the cusp exhibits smooth glistening surfaces. Additionally there is a 3.2 x 2.2 x 0.4 cm, kaufman-yellow to pink, ragged, rubbery, focally thickened fragment of tissue. No bulky or dense areas are identified. The specimen is serially sectioned and advertising representative sections are submitted in 1 cassette.Nai Sheth, Pathologists' Operations Examiner Jaspreet Chawla Pathologists' Operations Examiner Performed By: #### L [id number] ####[facility] ([facility])[address] [place] [address] LAB AP MICROSCOPIC DESCRIPTION Microscopic examination performed. [facility] Comment on above: Order Comment: Pre-o p diagnosis:Aortic valve disorder [I35.9] Performed By: #### L [id number] ####[facility] ([facility])[address] [place] [address] LAB AP REPORT FINAL DIAGNOSIS NARRATIVE [facility] Comment on above: Order Comment: Pre-o p diagnosis:Aortic valve disorder [I35.9] Result Comment: A. A ortic valve leaflet, removal:- Valvular tissue with fibrinoid necrosis and acute inflammation. Performed By: #### L [id number] ####[facility] ([facility])[address] [place] [address] LACTIC ACID WITH 4 HOUR REFL EXon 06-26-2023 LACTATE (MMOL/L) IN SER/PLAS 1.5 mmol/L Normal 0.5-2.2 [facility] Comment on above: Order Comment: Pre-o p diagnosis:Aortic valve disorder [I35.9] Performed By: #### L [id number] ####[facility] ([facility])[address] [place] [address] LACTATE (MMOL/L) IN SER/PLAS 3.1 mmol/L Critically high 0.5-2.2 [facility] Comment on above: Order Comment: Pre-o p diagnosis:Aortic valve disorder [I35.9] Performed By: #### L [id number] ####[facility] ([facility])[address] [place] [address] LACTIC ACID, PLASMAon 2023 LACTATE (MMOL/L) IN SER/PLAS 2.4 mmol/L High 0.5-2.2 [facility] Comment on above: Performed By: #### L [id number] ####[facility] ([facility])[address] [place] [address] MAGNESIUMon 06-26-2023 Magnesium [Mass/Vol] 2.4 mg/dL Normal 1.9-2.7 [facility] Comment on above: Performed By: #### L [id number] ####[facility] ([facility])[address] [place] [address] Magnesium [Mass/Vol] 2.6 mg/dL Normal 1.9-2.7 [facility] Comment on above: Order Comment: Pre-o p diagnosis:Aortic valve disorder [I35.9] Performed By: #### L [id number] ####[facility] ([facility])[address] [place] [address] Magnesium [Mass/Vol] 2.0 mg/dL Normal 1.9-2.7 [facility] Comment on above: Performed By: #### L [id number] ####[facility] ([facility])[address] [place] [address] OPNOTEon 06-26-2023 OPNOTE Normal [facility] PHOSPHORUSon 06-26-2023 Magnesium [Mass/Vol] 3.9 mg/dL Normal 2.5-5.0 [facility] Comment on above: Performed By: #### L [id number] ####[facility] ([facility])[address] [place] [address] Magnesium [Mass/Vol] 4.2 mg/dL Normal 2.5-5.0 [facility] Comment on above: Performed By: #### L [id number] ####[facility] ([facility])[address] [place] [address] POCT ACTIVATED CLOTTING TIME UNSOLICITED RESULTSon 06-26-2023 POC ACTIVATED CLOTTING TIME 143 sec Normal 82-152 [facility] Comment on above: Performed By: #### L [id number] ####[facility] ([facility])[address] [place] [address] POC ACTIVATED CLOTTING TIME 148 sec Normal 82-152 [facility] Comment on above: Performed By: #### L [id number] ####[facility] ([facility])[address] [place] [address] POC ACTIVATED CLOTTING TIME 473 sec High 82-152 [facility] Comment on above: Performed By: #### L [id number] ####[facility] ([facility])[address] [place] [address] POC ACTIVATED CLOTTING TIME 562 sec High 82-152 [facility] Comment on above: Performed By: #### L [id number] ####[facility] ([facility])[address] [place] [address] POC ACTIVATED CLOTTING TIME 602 sec High 82-152 [facility] Comment on above: Performed By: #### L [id number] ####[facility] ([facility])[address] [place] [address] POC ACTIVATED CLOTTING TIME 679 sec High 82-152 [facility] Comment on above: Performed By: #### L [id number] ####[facility] ([facility])[address] [place] [address] POC ACTIVATED CLOTTING TIME 772 sec High 82-152 [facility] Comment on above: Performed By: #### L [id number] ####[facility] ([facility])[address] [place] [address] POC ACTIVATED CLOTTING TIME 772 sec High 82-152 [facility] Comment on above: Performed By: #### L [id number] ####[facility] ([facility])[address] [place] [address] POC ACTIVATED CLOTTING TIME 701 sec High 82-152 [facility] Comment on above: Performed By: #### L [id number] ####[facility] ([facility])[address] [place] [address] POC ACTIVATED CLOTTING TIME 154 sec High 82-152 [facility] Comment on above: Performed By: #### L [id number] ####[facility] ([facility])[address] [place] [address] POCT GLUCOSE METER UNSOLICIT ED RESULTSon 06-26-2023 Glucose [Mass/Vol] 126 mg/dL High 70-105 [facility] Comment on above: Order Comment: Waive d Testing in the ED is performed under the ED CLIA certificate #[id number]. Result Comment: mmcc gabo Performed By: #### L [id number] ####[facility] ([facility])[address] [place] [address] Glucose [Mass/Vol] 135 mg/dL High 70-105 [facility] Comment on above: Order Comment: Waive d Testing in the ED is performed under the ED CLIA certificate #[id number]. Result Comment: pcar r Performed By: #### L [id number] ####[facility] ([facility])[address] [place] [address] Glucose [Mass/Vol] 131 mg/dL High 70-105 [facility] Comment on above: Order Comment: Waive d Testing in the ED is performed under the ED CLIA certificate #[id number]. Result Comment: [email or web address] [email or web address] Performed By: #### L [id number] ####[facility] ([facility])[address] [place] [address] POCT PERFUSION PANEL UNSOLIC ITED RESULTSon 06-26-2023 CO2 [Moles/Vol] 22.0 mmol/L Normal 21.0-29.0 [facility] Comment on above: Performed By: #### L [id number] ####[facility] ([facility])[address] [place] [address] Glucose [Mass/Vol] 197 mg/dL High 70-105 [facility] Comment on above: Performed By: #### L [id number] ####[facility] ([facility])[address] [place] [address] HCO3 (Bld) [Moles/Vol] 20.8 mmol/L Low 23.0-28.0 [facility] Comment on above: Performed By: #### L [id number] ####[facility] ([facility])[address] [place] [address] Hematocrit (Bld) [Volume fraction] 30 % Low 38-51 [facility] Comment on above: Performed By: #### L [id number] ####[facility] ([facility])[address] [place] [address] Hemoglobin (Bld) [Mass/Vol] 10.2 g/dL Low 12.0-17.0 [facility] Comment on above: Performed By: #### L [id number] ####[facility] ([facility])[address] [place] [address] POCT BASE EXCESS -4.0 mmol/L Low -2.0-3.0 [facility] Comment on above: Performed By: #### L [id number] ####[facility] ([facility])[address] [place] [address] POCT IONIZED CALCIUM 1.17 mmol/L Normal 1.12-1.32 [facility] Comment on above: Performed By: #### L [id number] ####[facility] ([facility])[address] [place] [address] POCT PCO2 36.5 mmHg Low 41.0-51.0 [facility] Comment on above: Performed By: #### L [id number] ####[facility] ([facility])[address] [place] [address] POCT PH 7.36 Normal 7.31-7.41 [facility] Comment on above: Performed By: #### L [id number] ####[facility] ([facility])[address] [place] [address] POCT PO2 240 mmHg High 80-105 [facility] Comment on above: Performed By: #### L [id number] ####[facility] ([facility])[address] [place] [address] POCT SO2 100 % High 95-98 [facility] Comment on above: Performed By: #### L [id number] ####[facility] ([facility])[address] [place] [address] Potassium [Moles/Vol] 3.9 mmol/L Normal 3.5-4.9 [facility] Comment on above: Performed By: #### L [id number] ####[facility] ([facility])[address] [place] [address] Sodium [Moles/Vol] 139 mmol/L Normal 138.0-146.0 [facility] Comment on above: Performed By: #### L [id number] ####[facility] ([facility])[address] [place] [address] CO2 [Moles/Vol] 23.0 mmol/L Normal 21.0-29.0 [facility] Comment on above: Performed By: #### L [id number] ####[facility] ([facility])[address] [place] [address] Glucose [Mass/Vol] 208 mg/dL High 70-105 [facility] Comment on above: Performed By: #### L [id number] ####[facility] ([facility])[address] [place] [address] HCO3 (Bld) [Moles/Vol] 21.6 mmol/L Low 23.0-28.0 [facility] Comment on above: Performed By: #### L [id number] ####[facility] ([facility])[address] [place] [address] Hematocrit (Bld) [Volume fraction] 28 % Low 38-51 [facility] Comment on above: Performed By: #### L [id number] ####[facility] ([facility])[address] [place] [address] Hemoglobin (Bld) [Mass/Vol] 9.5 g/dL Low 12.0-17.0 [facility] Comment on above: Performed By: #### L [id number] ####[facility] ([facility])[address] [place] [address] POCT BASE EXCESS -4.0 mmol/L Low -2.0-3.0 [facility] Comment on above: Performed By: #### L [id number] ####[facility] ([facility])[address] [place] [address] POCT IONIZED CALCIUM 1.22 mmol/L Normal 1.12-1.32 [facility] Comment on above: Performed By: #### L [id number] ####[facility] ([facility])[address] [place] [address] POCT PCO2 38.6 mmHg Low 41.0-51.0 [facility] Comment on above: Performed By: #### L [id number] ####[facility] ([facility])[address] [place] [address] POCT PH 7.36 Normal 7.31-7.41 [facility] Comment on above: Performed By: #### L [id number] ####[facility] ([facility])[address] [place] [address] POCT PO2 265 mmHg High 80-105 [facility] Comment on above: Performed By: #### L [id number] ####[facility] ([facility])[address] [place] [address] POCT SO2 100 % High 95-98 [facility] Comment on above: Performed By: #### L [id number] ####[facility] ([facility])[address] [place] [address] Potassium [Moles/Vol] 3.9 mmol/L Normal 3.5-4.9 [facility] Comment on above: Performed By: #### L [id number] ####[facility] ([facility])[address] [place] [address] Sodium [Moles/Vol] 137 mmol/L Low 138.0-146.0 [facility] Comment on above: Performed By: #### L [id number] ####[facility] ([facility])[address] [place] [address] CO2 [Moles/Vol] 25.0 mmol/L Normal 21.0-29.0 [facility] Comment on above: Performed By: #### L [id number] ####[facility] ([facility])[address] [place] [address] Glucose [Mass/Vol] 216 mg/dL High 70-105 [facility] Comment on above: Performed By: #### L [id number] ####[facility] ([facility])[address] [place] [address] HCO3 (Bld) [Moles/Vol] 23.3 mmol/L Normal 23.0-28.0 [facility] Comment on above: Performed By: #### L [id number] ####[facility] ([facility])[address] [place] [address] Hematocrit (Bld) [Volume fraction] 28 % Low 38-51 [facility] Comment on above: Performed By: #### L [id number] ####[facility] ([facility])[address] [place] [address] Hemoglobin (Bld) [Mass/Vol] 9.5 g/dL Low 12.0-17.0 [facility] Comment on above: Performed By: #### L [id number] ####[facility] ([facility])[address] [place] [address] POCT BASE EXCESS -3.0 mmol/L Low -2.0-3.0 [facility] Comment on above: Performed By: #### L [id number] ####[facility] ([facility])[address] [place] [address] POCT IONIZED CALCIUM 1.29 mmol/L Normal 1.12-1.32 [facility] Comment on above: Performed By: #### L [id number] ####[facility] ([facility])[address] [place] [address] POCT PCO2 46.6 mmHg Normal 41.0-51.0 [facility] Comment on above: Performed By: #### L [id number] ####[facility] ([facility])[address] [place] [address] POCT PH 7.31 Normal 7.31-7.41 [facility] Comment on above: Performed By: #### L [id number] ####[facility] ([facility])[address] [place] [address] POCT PO2 348 mmHg High 80-105 [facility] Comment on above: Performed By: #### L [id number] ####[facility] ([facility])[address] [place] [address] POCT SO2 100 % High 95-98 [facility] Comment on above: Performed By: #### L [id number] ####[facility] ([facility])[address] [place] [address] Potassium [Moles/Vol] 4.7 mmol/L Normal 3.5-4.9 [facility] Comment on above: Performed By: #### L [id number] ####[facility] ([facility])[address] [place] [address] Sodium [Moles/Vol] 136 mmol/L Low 138.0-146.0 [facility] Comment on above: Performed By: #### L [id number] ####[facility] ([facility])[address] [place] [address] CO2 [Moles/Vol] 26.0 mmol/L Normal 21.0-29.0 [facility] Comment on above: Performed By: #### L [id number] ####[facility] ([facility])[address] [place] [address] Glucose [Mass/Vol] 173 mg/dL High 70-105 [facility] Comment on above: Performed By: #### L [id number] ####[facility] ([facility])[address] [place] [address] HCO3 (Bld) [Moles/Vol] 24.8 mmol/L Normal 23.0-28.0 [facility] Comment on above: Performed By: #### L [id number] ####[facility] ([facility])[address] [place] [address] Hematocrit (Bld) [Volume fraction] 30 % Low 38-51 [facility] Comment on above: Performed By: #### L [id number] ####[facility] ([facility])[address] [place] [address] Hemoglobin (Bld) [Mass/Vol] 10.2 g/dL Low 12.0-17.0 [facility] Comment on above: Performed By: #### L [id number] ####[facility] ([facility])[address] [place] [address] POCT BASE EXCESS 0.0 mmol/L Normal -2.0-3.0 [facility] Comment on above: Performed By: #### L [id number] ####[facility] ([facility])[address] [place] [address] POCT IONIZED CALCIUM 1.57 mmol/L Critically high 1.12-1.32 [facility] Comment on above: Performed By: #### L [id number] ####[facility] ([facility])[address] [place] [address] POCT PCO2 40.5 mmHg Low 41.0-51.0 [facility] Comment on above: Performed By: #### L [id number] ####[facility] ([facility])[address] [place] [address] POCT PH 7.40 Normal 7.31-7.41 [facility] Comment on above: Performed By: #### L [id number] ####[facility] ([facility])[address] [address] POCT PO2 321 mmHg High 80-105 [facility] Comment on above: Performed By: #### L [id number] ####[facility] ([facility])[address] [address] POCT SO2 100 % High 95-98 [facility] Comment on above: Performed By: #### L [id number] ####[facility] ([facility])[address] [place] [address] Potassium [Moles/Vol] 5.4 mmol/L High 3.5-4.9 [facility] Comment on above: Performed By: #### L [id number] ####[facility] ([facility])[address] [place] [address] Sodium [Moles/Vol] 134 mmol/L Low 138.0-146.0 [facility] Comment on above: Performed By: #### L [id number] ####[facility] ([facility])[address] [place] [address] CO2 [Moles/Vol] 25.0 mmol/L Normal 21.0-29.0 [facility] Comment on above: Performed By: #### L [id number] ####[facility] ([facility])[address] [place] [address] Glucose [Mass/Vol] 171 mg/dL High 70-105 [facility] Comment on above: Performed By: #### L [id number] ####[facility] ([facility])[address] [place] [address] HCO3 (Bld) [Moles/Vol] 23.6 mmol/L Normal 23.0-28.0 [facility] Comment on above: Performed By: #### L [id number] ####[facility] ([facility])[address] [place] [address] Hematocrit (Bld) [Volume fraction] 30 % Low 38-51 [facility] Comment on above: Performed By: #### L [id number] ####[facility] ([facility])[address] [place] [address] Hemoglobin (Bld) [Mass/Vol] 10.2 g/dL Low 12.0-17.0 [facility] Comment on above: Performed By: #### L [id number] ####[facility] ([facility])[address] [place] [address] POCT BASE EXCESS -2.0 mmol/L Normal -2.0-3.0 [facility] Comment on above: Performed By: #### L [id number] ####[facility] ([facility])[address] [place] [address] POCT IONIZED CALCIUM 1.12 mmol/L Normal 1.12-1.32 [facility] Comment on above: Performed By: #### L [id number] ####[facility] ([facility])[address] [place] [address] POCT PCO2 44.0 mmHg Normal 41.0-51.0 [facility] Comment on above: Performed By: #### L [id number] ####[facility] ([facility])[address] [place] [address] POCT PH 7.34 Normal 7.31-7.41 [facility] Comment on above: Performed By: #### L [id number] ####[facility] ([facility])[address] [place] [address] POCT PO2 390 mmHg High 80-105 [facility] Comment on above: Performed By: #### L [id number] ####[facility] ([facility])[address] [place] [address] POCT SO2 100 % High 95-98 [facility] Comment on above: Performed By: #### L [id number] ####[facility] ([facility])[address] [place] [address] Potassium [Moles/Vol] 5.4 mmol/L High 3.5-4.9 [facility] Comment on above: Performed By: #### L [id number] ####[facility] ([facility])[address] [place] [address] Sodium [Moles/Vol] 136 mmol/L Low 138.0-146.0 [facility] Comment on above: Performed By: #### L [id number] ####[facility] ([facility])[address] [place] [address] CO2 [Moles/Vol] 25.0 mmol/L Normal 21.0-29.0 [facility] Comment on above: Performed By: #### L [id number] ####[facility] ([facility])[address] [place] [address] Glucose [Mass/Vol] 184 mg/dL High 70-105 [facility] Comment on above: Performed By: #### L [id number] ####[facility] (BEAKER)[address] [place] [address] HCO3 (Bld) [Moles/Vol] 23.7 mmol/L Normal 23.0-28.0 [facility] Comment on above: Performed By: #### L [id number] ####[facility] ([facility]AK[facility])[address] [place] [address] Hematocrit (Bld) [Volume fraction] 33 % Low 38-51 [facility] Comment on above: Performed By: #### L [id number] ####[facility] ([facility])[address] [place] [address] Hemoglobin (Bld) [Mass/Vol] 11.2 g/dL Low 12.0-17.0 [facility] Comment on above: Performed By: #### L [id number] ####[facility] ([facility]AKER)[address] [place] [address] POCT BASE EXCESS -3.0 mmol/L Low -2.0-3.0 [facility] Comment on above: Performed By: #### L [id number] ####[facility] ([facility]AKER)[address] [place] [address] POCT IONIZED CALCIUM 1.09 mmol/L Low 1.12-1.32 [facility] Comment on above: Performed By: #### L [id number] ####[facility] [facility] ([facility] [place] [address] POCT PCO2 46.1 mmHg Normal 41.0-51.0 [facility] Comment on above: Performed By: #### L [id number] ####[facility] ([facility])[address] [place] [address] POCT PH 7.32 Normal 7.31-7.41 [facility] Comment on above: Performed By: #### L [id number] ####[facility] ([facility]AKER)[address] [place] [address] POCT PO2 400 mmHg High 80-105 [facility] Comment on above: Performed By: #### L [id number] ####[facility] (BEAKER)[address] [place] [address] POCT SO2 100 % High 95-98 [facility] Comment on above: Performed By: #### L [id number] ####[facility] ([facility]AKER)[address] [place] [address] Potassium [Moles/Vol] 4.5 mmol/L Normal 3.5-4.9 [facility] Comment on above: Performed By: #### L [id number] ####[facility] ([facility]AKER)[address] [place] [address] Sodium [Moles/Vol] 136 mmol/L Low 138.0-146.0 [facility] Comment on above: Performed By: #### L [id number] ####[facility] (BEAKER)[address] [place] [address] CO2 [Moles/Vol] 25.0 mmol/L Normal 21.0-29.0 [facility] Comment on above: Performed By: #### L [id number] ####[facility] (BEAKER)[address] [place] [address] Glucose [Mass/Vol] 193 mg/dL High 70-105 [facility] Comment on above: Performed By: #### L [id number] ####[facility] (BEAKER)[address] [place] [address] HCO3 (Bld) [Moles/Vol] 23.6 mmol/L Normal 23.0-28.0 [facility] Comment on above: Performed By: #### L [id number] ####[facility] (BEAKER)[address] [place] [address] Hematocrit (Bld) [Volume fraction] 26 % Low 38-51 [facility] Comment on above: Performed By: #### L [id number] ####[facility] (BEAKER)[address] [place] [address] Hemoglobin (Bld) [Mass/Vol] 8.8 g/dL Low 12.0-17.0 [facility] Comment on above: Performed By: #### L [id number] ####[facility] ([facility]ER)[address] [place] [address] POCT BASE EXCESS -2.0 mmol/L Normal -2.0-3.0 [facility] Comment on above: Performed By: #### L [id number] ####[facility] ([facility]ER)[address] [place] [address] POCT IONIZED CALCIUM 1.06 mmol/L Low 1.12-1.32 [facility] Comment on above: Performed By: #### L [id number] ####[facility] ([facility]ER)[address] [place] [address] POCT PCO2 40.9 mmHg Low 41.0-51.0 [facility] Comment on above: Performed By: #### L [id number] ####[facility] (BEAKER)[address] [place] [address] POCT PH 7.37 Normal 7.31-7.41 [facility] Comment on above: Performed By: #### L [id number] ####[facility] ([facility]AKER)[address] [place] [address] POCT PO2 510 mmHg High 80-105 [facility] Comment on above: Performed By: #### L [id number] ####[facility] ([facility] [place] [address] POCT SO2 100 % High 95-98 [facility] Comment on above: Performed By: #### L [id number] ####[facility] (BEAKER)[address] [place] [address] Potassium [Moles/Vol] 4.4 mmol/L Normal 3.5-4.9 [facility] Comment on above: Performed By: #### L [id number] ####[facility] ([facility]AKER)[address] [place] [address] Sodium [Moles/Vol] 135 mmol/L Low 138.0-146.0 [facility] Comment on above: Performed By: #### L [id number] ####[facility] (BEAKER)[address] [place] [address] CO2 [Moles/Vol] 24.0 mmol/L Normal 21.0-29.0 [facility] Comment on above: Performed By: #### L [id number] ####[facility] (BEAKER)[address] [place] [address] Glucose [Mass/Vol] 185 mg/dL High 70-105 [facility] Comment on above: Performed By: #### L [id number] ####[facility] (BEAKER)[address] [place] [address] HCO3 (Bld) [Moles/Vol] 22.7 mmol/L Low 23.0-28.0 [facility] Comment on above: Performed By: #### L [id number] ####[facility] ([facility]ER)[address] [place] [address] Hematocrit (Bld) [Volume fraction] 26 % Low 38-51 [facility] Comment on above: Performed By: #### L [id number] ####[facility] ([facility]ER)[address] [address] Hemoglobin (Bld) [Mass/Vol] 8.8 g/dL Low 12.0-17.0 [facility] Comment on above: Performed By: #### L [id number] ####[facility] (BEAKER)[address] [place] [address] POCT BASE EXCESS -2.0 mmol/L Normal -2.0-3.0 [facility] Comment on above: Performed By: #### L [id number] ####[facility] (BEAKER)[address] [place] [address] POCT IONIZED CALCIUM 1.10 mmol/L Low 1.12-1.32 [facility] Comment on above: Performed By: #### L [id number] ####[facility] (BEAKER)[address] [place] [address] POCT PCO2 37.2 mmHg Low 41.0-51.0 [facility] Comment on above: Performed By: #### L [id number] ####[facility] ([facility]ER)[address] [place] [address] POCT PH 7.39 Normal 7.31-7.41 [facility] Comment on above: Performed By: #### L [id number] ####[facility] ([facility]ER)[address] [place] [address] POCT PO2 485 mmHg High 80-105 [facility] Comment on above: Performed By: #### L [id number] ####[facility] ([facility]AKER)[address] [place] [address] POCT SO2 100 % High 95-98 [facility] Comment on above: Performed By: #### L [id number] ####[facility] (BEAKER)[address] [place] [address] Potassium [Moles/Vol] 3.7 mmol/L Normal 3.5-4.9 [facility] Comment on above: Performed By: #### L [id number] ####[facility] ([facility]ER)[address] [place] [address] Sodium [Moles/Vol] 136 mmol/L Low 138.0-146.0 [facility] Comment on above: Performed By: #### L [id number] ####[facility] ([facility]AKER)[address] [place] [address] CO2 [Moles/Vol] 23.0 mmol/L Normal 21.0-29.0 [facility] Comment on above: Performed By: #### L [id number] ####[facility] ([facility]AKER)[address] [place] [address] Glucose [Mass/Vol] 132 mg/dL High 70-105 [facility] Comment on above: Performed By: #### L [id number] ####[facility] (BEAKER)[address] [place] [address] HCO3 (Bld) [Moles/Vol] 21.5 mmol/L Low 23.0-28.0 [facility] Comment on above: Performed By: #### L [id number] ####[facility] ([facility]ER)[address] [place] [address] Hematocrit (Bld) [Volume fraction] 29 % Low 38-51 [facility] Comment on above: Performed By: #### L [id number] ####[facility] ([facility]ER)[address] [place] [address] Hemoglobin (Bld) [Mass/Vol] 9.9 g/dL Low 12.0-17.0 [facility] Comment on above: Performed By: #### L [id number] ####[facility] ([facility]ER)[address] [address] POCT BASE EXCESS -4.0 mmol/L Low -2.0-3.0 [facility] Comment on above: Performed By: #### L [id number] ####[facility] ([facility]ER)[address] [address] POCT IONIZED CALCIUM 1.27 mmol/L Normal 1.12-1.32 [facility] Comment on above: Performed By: #### L [id number] ####[facility] ([facility]ER)[address] [address] POCT PCO2 38.3 mmHg Low 41.0-51.0 [facility] Comment on above: Performed By: #### L [id number] ####[facility] ([facility]ER)[address] [place] [address] POCT PH 7.36 Normal 7.31-7.41 [facility] Comment on above: Performed By: #### L [id number] ####[facility] ([facility]ER)[address] [address] POCT PO2 214 mmHg High 80-105 [facility] Comment on above: Performed By: #### L [id number] ####[facility] ([facility]ER)[address] [address] POCT SO2 100 % High 95-98 [facility] Comment on above: Performed By: #### L [id number] ####[facility] (BEAKER)[address] [place] [address] Potassium [Moles/Vol] 3.9 mmol/L Normal 3.5-4.9 [facility] Comment on above: Performed By: #### L [id number] ####[facility] (BEAKER)[address] [place] [address] Sodium [Moles/Vol] 137 mmol/L Low 138.0-146.0 [facility] Comment on above: Performed By: #### L [id number] ####[facility] (BEAKER)[address] [place] [address] POCT BASE EXCESS Normal [facility] Comment on above: Performed By: #### L [id number] ####[facility] ([facility] [place] [address] POCT GLUCOSE Normal [place] Comment on above: Performed By: #### L [id number] ####[facility] ([facility] [place] [address] POCT HCO3 Normal [facility] Comment on above: Performed By: #### L [id number] ####[facility] ([facility] [place] [address] POCT HEMATOCRIT Normal [facility] Comment on above: Performed By: #### L [id number] ####[facility] ([facility] [place] [address] POCT HEMOGLOBIN Normal [facility] Comment on above: Performed By: #### L [id number] ####[facility] [place] [address] POCT IONIZED CALCIUM Normal [facility] Comment on above: Performed By: #### L [id number] ####[facility] ([facility] [place] [address] POCT PCO2 Normal [facility] Comment on above: Performed By: #### L [id number] ####[facility] ([facility] [place] [address] POCT PH Normal [facility] Comment on above: Performed By: #### L [id number] ####[facility] ([facility]ER)[address] [place] [address] POCT PO2 53 mmHg Low 80-105 [facility] Comment on above: Performed By: #### L [id number] ####[facility] (BEAKER)[address] [place] [address] POCT POTASSIUM Normal [facility] Comment on above: Performed By: #### L [id number] ####[facility] ([facility]AKER)[address] [place] [address] POCT SO2 85 % Low 95-98 [facility] Comment on above: Performed By: #### L [id number] ####[facility] ([facility]ER)[address] [place] [address] POCT SODIUM Normal [facility] Comment on above: Performed By: #### L [id number] ####[facility] ([facility]ER)[address] [place] [address] POCT TOTAL CO2 Normal [facility] Comment on above: Performed By: #### L [id number] ####[facility] ([facility]ER)[address] [place] [address] CO2 [Moles/Vol] 25.0 mmol/L Normal 21.0-29.0 [facility] Comment on above: Performed By: #### L [id number] ####[facility] ([facility]ER)[address] [place] [address] Glucose [Mass/Vol] 114 mg/dL High 70-105 [facility] Comment on above: Performed By: #### L [id number] ####[facility] ([facility]ER)[address] [place] [address] HCO3 (Bld) [Moles/Vol] 23.4 mmol/L Normal 23.0-28.0 [facility] Comment on above: Performed By: #### L [id number] ####[facility] (BEAKER)[address] [place] [address] Hematocrit (Bld) [Volume fraction] 30 % Low 38-51 [facility] Comment on above: Performed By: #### L [id number] ####[facility] (BEAKER)[address] [place] [address] Hemoglobin (Bld) [Mass/Vol] 10.2 g/dL Low 12.0-17.0 [facility] Comment on above: Performed By: #### L [id number] ####[facility] ([facility]ER)[address] [address] POCT BASE EXCESS -2.0 mmol/L Normal -2.0-3.0 [facility] Comment on above: Performed By: #### L [id number] ####[facility] ([facility]ER)[address] [address] POCT IONIZED CALCIUM 1.19 mmol/L Normal 1.12-1.32 [facility] Comment on above: Performed By: #### L [id number] ####[facility] ([facility]ER)[address] [address] POCT PCO2 40.0 mmHg Low 41.0-51.0 [facility] Comment on above: Performed By: #### L [id number] ####[facility] ([facility]ER)[address] [address] POCT PH 7.38 Normal 7.31-7.41 [facility] Comment on above: Performed By: #### L [id number] ####[facility] ([facility]AKER)[address] [address] POCT PO2 159 mmHg High 80-105 [facility] Comment on above: Performed By: #### L [id number] ####[facility] ([facility]ER)[address] [address] POCT SO2 99 % High 95-98 [facility] Comment on above: Performed By: #### L [id number] ####[facility] ([facility]AKER)[address] [place] [address] Potassium [Moles/Vol] 4.1 mmol/L Normal 3.5-4.9 [facility] Comment on above: Performed By: #### L [id number] ####[facility] ([facility]ER)[address] [place] [address] Sodium [Moles/Vol] 137 mmol/L Low 138.0-146.0 [facility] Comment on above: Performed By: #### L [id number] ####[facility] ([place])[address] [place] [address] PROTIME-INRon 06-26-2023 INR IN PPP BY COAGULATION ASSAY 1.29 High 0.90-1.10 [facility] Comment on above: Result Comment: [facility] P RECOMMENDED INR FOR WARFARIN THERAPY CONDITION INRPROPHYLAXIS OF VENOUS THROMBOSIS 2-3(HIGH-RISK SURGERY)TREATMENT OF VENOUS THROMBOSIS 2-3TREATMENT OF PULMONARY EMBOLISM 2-3PREVENTION OF SYSTEMIC EMBOLISM: 2-3 ACUTE MYOCARDIAL INFARCTION TISSUE HEART VALVES VALVULAR HEART DISEASE ATRIAL FIBRILLATION RECURRENT SYSTEMIC EMBOLISMMECHANICAL HEART VALVE 2.5-3.5 FROM: ORAL ANTICOAGULANTS. MECHANISM OF ACTION, CLINICAL EFFECTIVENESS, AND OPTIMAL THERAPEUTIC RANGE. CHEST 1995;108:231S-246S. Performed By: #### L [id number] ####[facility] ([place])[address] [place] [address] PROTHROMBIN TIME (PT) IN PPP BY COAGULATION ASSAY 16.1 Seconds High 12.3-14.8 [facility] Comment on above: Performed By: #### L [id number] ####[facility] ([place])[address] [place] [address] INR IN PPP BY COAGULATION ASSAY 1.37 High 0.90-1.10 [facility] Comment on above: Order Comment: Pre-o p diagnosis:Aortic valve disorder [I35.9] Result Comment: [facility] P RECOMMENDED INR FOR WARFARIN THERAPY CONDITION INRPROPHYLAXIS OF VENOUS THROMBOSIS 2-3(HIGH-RISK SURGERY)TREATMENT OF VENOUS THROMBOSIS 2-3TREATMENT OF PULMONARY EMBOLISM 2-3PREVENTION OF SYSTEMIC EMBOLISM: 2-3 ACUTE MYOCARDIAL INFARCTION TISSUE HEART VALVES VALVULAR HEART DISEASE ATRIAL FIBRILLATION RECURRENT SYSTEMIC EMBOLISMMECHANICAL HEART VALVE 2.5-3.5 FROM: ORAL ANTICOAGULANTS. MECHANISM OF ACTION, CLINICAL EFFECTIVENESS, AND OPTIMAL THERAPEUTIC RANGE. CHEST 1995;108:231S-246S. Performed By: #### L [id number] ####[facility]con[facility])[address] [place] [address] PROTHROMBIN TIME (PT) IN PPP BY COAGULATION ASSAY 16.9 Seconds High 12.3-14.8 [facility] Comment on above: Order Comment: Pre-o p diagnosis:Aortic valve disorder [I35.9] Performed By: #### L [id number] ####[facility] ([place])[address] [place] [address] INR IN PPP BY COAGULATION ASSAY 1.06 Normal 0.90-1.10 [facility] Comment on above: Result Comment: [facility] P RECOMMENDED INR FOR WARFARIN THERAPY CONDITION INRPROPHYLAXIS OF VENOUS THROMBOSIS 2-3(HIGH-RISK SURGERY)TREATMENT OF VENOUS THROMBOSIS 2-3TREATMENT OF PULMONARY EMBOLISM 2-3PREVENTION OF SYSTEMIC EMBOLISM: 2-3 ACUTE MYOCARDIAL INFARCTION TISSUE HEART VALVES VALVULAR HEART DISEASE ATRIAL FIBRILLATION RECURRENT SYSTEMIC EMBOLISMMECHANICAL HEART VALVE 2.5-3.5 FROM: ORAL ANTICOAGULANTS. MECHANISM OF ACTION, CLINICAL EFFECTIVENESS, AND OPTIMAL THERAPEUTIC RANGE. CHEST 1995;108:231S-246S. Performed By: #### L [id number] ####[facility] ([facility])[address] [place] [address] PROTHROMBIN TIME (PT) IN PPP BY COAGULATION ASSAY 13.8 Seconds Normal 12.3-14.8 [facility] Comment on above: Performed By: #### L [id number] ####[facility] ([facility])[address] [place] [address] TISSUE CULTUREon 06-26-2023 Bacteria identified Cx Nom (Unsp spec) No growth at 5 days Normal [facility] Comment on above: Order Comment: Pre-o p diagnosis:Aortic valve disorder [I35.9] Performed By: #### L [id number] ####[facility] ([facility])[address] [place] [address] GRAM STAIN RESULT Normal [facility] Comment on above: Order Comment: Pre-o p diagnosis:Aortic valve disorder [I35.9] Result Comment: No p olymorphonuclear leukocytes seenNo organisms seen Performed By: #### L [id number] ####[facility] ([facility])[address] [place] [address] 30on 06-25-2023 30 Normal [facility] ANESon 06-25-2023 ANES Normal [facility] APTTon 06-25-2023 ACTIVATED PARTIAL THROMBOPLASTIN TIME IN PPP BY COAGULATION ASSAY 31.3 Seconds Normal 25.0-35.0 [facility] Comment on above: Result Comment: Clin ical significance of the APTT is questionable in the presence of heparin. Performed By: #### L [id number] ####[facility] ([facility])[address] [place] [address] CBC WITH AUTO DIFFERENTIALon 06-25-2023 Basophils (Bld) [#/Vol] 0.04 10*3/uL Normal 0.00-0.20 [facility] Comment on above: Performed By: #### L [id number] ####[facility] (BEAKER)[address] [place] [address] Basophils/100 WBC (Bld) 0.8 % Normal 0.0-1.0 [facility] Comment on above: Performed By: #### L [id number] ####[facility] (BEAKER)[address] [place] [address] Eosinophils (Bld) [#/Vol] 0.38 10*3/uL Normal 0.00-0.50 [facility] Comment on above: Performed By: #### L [id number] ####[facility] (BEAKER)[address] [place] [address] Eosinophils/100 WBC (Bld) 7.7 % High 0.0-6.0 [facility] Comment on above: Performed By: #### L [id number] ####[facility] (BEAKER)[address] [place] [address] Erythrocyte distribution width (RBC) [Ratio] 16.0 % High 11.5-15.0 [facility] Comment on above: Performed By: #### L [id number] ####[facility] (BEAKER)[address] [place] [address] ERYTHROCYTE MEAN CORPUSCULAR HEMOGLOBIN CONCENTRATION (G/DL) BY AUTOMATED 34.0 g/dL Normal 32.0-35.0 [facility] Comment on above: Performed By: #### L [id number] ####[facility] (BEAKER)[address] [place] [address] Hematocrit (Bld) [Volume fraction] 32.6 % Low 39.0-55.0 [facility] Comment on above: Performed By: #### L [id number] ####[facility] (BEAKER)[address] [place] [address] Hemoglobin (Bld) [Mass/Vol] 11.1 g/dL Low 13.0-17.0 [facility] Comment on above: Performed By: #### L [id number] ####[facility] (BEAKER)[address] [place] [address] Immature granulocytes (Bld) [#/Vol] 0.02 10*3/uL Normal 0.00-0.20 [facility] Comment on above: Performed By: #### L [id number] ####[facility] (BEAKER)[address] [place] [address] Immature granulocytes/100 WBC (Bld) 0.4 % Normal 0.0-1.0 [facility] Comment on above: Performed By: #### L [id number] ####[facility] (BEAKER)[address] [place] [address] Lymphocytes (Bld) [#/Vol] 0.80 10*3/uL Low 1.20-4.00 [facility] Comment on above: Performed By: #### L [id number] ####[facility] (BEAKER)[address] [place] [address] Lymphocytes/100 WBC (Bld) 16.2 % Low 20.0-45.0 [facility] Comment on above: Performed By: #### L [id number] ####[facility] ([facility]AKER)[address] [place] [address] MCH (RBC) [Entitic mass] 29.8 pg Normal 27.0-33.0 [facility] Comment on above: Performed By: #### L [id number] ####[facility] (BEAKER)[address] [place] [address] MCV (RBC) [Entitic vol] 87.4 fL Normal 82.0-98.0 [facility] Comment on above: Performed By: #### L [id number] ####[facility] (BEAKER)[address] [place] [address] Monocytes (Bld) [#/Vol] 0.42 10*3/uL Normal 0.10-1.00 [facility] Comment on above: Performed By: #### L [id number] ####[facility] ([facility])[address] [place] [address] Monocytes/100 WBC (Bld) 8.5 % Normal 5.0-12.0 [facility] Comment on above: Performed By: #### L [id number] ####[facility] ([facility])[address] [address] Neutrophils (Bld) [#/Vol] 3.29 10*3/uL Normal 1.60-7.60 [facility] Comment on above: Performed By: #### L [id number] ####[facility] ([facility])[address] [address] Neutrophils/100 WBC (Bld) 66.4 % Normal 40.0-72.0 [facility] Comment on above: Performed By: #### L [id number] ####[facility] ([facility])[address] [place] [address] NRBC (PER 100 WBCS) BY AUTOMATED COUNT 0.0 % Normal 0 [facility] Comment on above: Performed By: #### L [id number] ####[facility] ([facility])[address] [place] [address] PLATELETS (10*3/UL) IN BLOOD AUTOMATED COUNT 142 10*3/uL Low 150-400 [facility] Comment on above: Performed By: #### L [id number] ####[facility] ([facility])[address] [place] [address] RBC (Bld) [#/Vol] 3.73 10*6/uL Low 4.20-5.70 [facility] Comment on above: Performed By: #### L [id number] ####[facility] ([facility])[address] [address] WBC (Bld) [#/Vol] 4.95 10*3/uL Normal 4.00-10.60 [facility] Comment on above: Performed By: #### L [id number] ####[facility] ([facility])[address] [place] [address] COMPREHENSIVE METABOLIC PANE Braulio 06-25-2023 Albumin [Mass/Vol] 3.9 g/dL Normal 3.5-5.7 [facility] Comment on above: Performed By: #### L [id number] ####[facility] ([facility])[address] [place] [address] ALP [Catalytic activity/Vol] 49 U/L Normal 34-104 [facility] Comment on above: Performed By: #### L [id number] ####[facility] ([facility])[address] [place] [address] ALT [Catalytic activity/Vol] 13 U/L Normal 7-52 [facility] Comment on above: Performed By: #### L [id number] ####[facility] ([facility])[address] [place] [address] Anion gap [Moles/Vol] 11 mmol/L Normal 7-20 [facility] Comment on above: Performed By: #### L [id number] ####[facility] ([facility])[address] [place] [address] AST [Catalytic activity/Vol] 12 U/L Low 13-39 [facility] Comment on above: Performed By: #### L [id number] ####[facility] ([facility])[address] [place] [address] Bilirubin [Mass/Vol] 0.8 mg/dL Normal 0.3-1.0 [facility] Comment on above: Performed By: #### L [id number] ####[facility] ([facility])[address] [place] [address] Calcium [Mass/Vol] 8.8 mg/dL Normal 8.6-10.3 [facility] Comment on above: Performed By: #### L [id number] ####[facility] ([facility])[address] [place] [address] Chloride [Moles/Vol] 102 mmol/L Normal 98-107 [facility] Comment on above: Performed By: #### L [id number] ####[facility] ([facility])[address] [place] [address] CO2 [Moles/Vol] 26 mmol/L Normal 21-31 [facility] Comment on above: Performed By: #### L [id number] ####[facility] ([facility])[address] [place] [address] Creatinine [Mass/Vol] 0.84 mg/dL Normal 0.70-1.30 [facility] Comment on above: Performed By: #### L [id number] ####[facility] ([facility])[address] [place] [address] GLOMERULAR FILTRATION RATE ML/MIN/1.73 SQ M.PREDICTED 106.2 mL/min/1.73m*2 Normal >60.0 [facility] Comment on above: Result Comment: [facility]???s estimated glomerular filtration rate (eGFR) will no [...] of individuals. Performed By: #### L [id number] ####[facility] ([facility])[address] [place] [address] Glucose [Mass/Vol] 93 mg/dL Normal 70-100 [facility] Comment on above: Performed By: #### L [id number] ####[facility] ([facility])[address] [place] [address] Potassium [Moles/Vol] 4.3 mmol/L Normal 3.5-5.1 [facility] Comment on above: Performed By: #### L [id number] ####[facility] ([facility])[address] [place] [address] Protein [Mass/Vol] 6.2 g/dL Normal 6.0-8.3 [facility] Comment on above: Performed By: #### L [id number] ####[facility] ([facility])[address] [place] [address] Sodium [Moles/Vol] 135 mmol/L Low 136-145 [facility] Comment on above: Performed By: #### L [id number] ####[facility] ([facility])[address] [place] [address] Urea nitrogen [Mass/Vol] 15 mg/dL Normal 7-25 [facility] Comment on above: Performed By: #### L [id number] ####[facility] ([facility])[address] [place] [address] UREA NITROGEN/CREATININE (MASS RATIO) IN SER/PLAS 17.9 Normal [facility] Comment on above: Performed By: #### L [id number] ####[facility] ([facility])[address] [place] [address] MAGNESIUMon 06-25-2023 Magnesium [Mass/Vol] 1.9 mg/dL Normal 1.9-2.7 [facility] Comment on above: Performed By: #### L [id number] ####[facility] ([facility])[address] [place] [address] MRSA/MSSA DNA NASALon 2023 MRSA DNA Negative Normal Negative [facility] Comment on above: Order Comment: Testi ng methodology is an automated qualitative in vitro diagnostic test for the directdetection and differentiation of Staphylococcus aureus (SA) DNA and methicillin-resistant Staphylococcus aureus (MRSA) DNA from nasal swabs in patients at risk for nasal colonization. The test utilizes real-time polymerase chain reaction (PCR) for the amplification of MRSA/SA DNA and fluorogenic target-specific hybridization probes for the detection of the amplified DNA. A negative result does not preclude nasal colonization. Performed By: #### L [id number] ####[facility] ([facility])[address] [place] [address] MSSA DNA Negative Normal Negative [facility] Comment on above: Order Comment: Testi ng methodology is an automated qualitative in vitro diagnostic test for the directdetection and differentiation of Staphylococcus aureus (SA) DNA and methicillin-resistant Staphylococcus aureus (MRSA) DNA from nasal swabs in patients at risk for nasal colonization. The test utilizes real-time polymerase chain reaction (PCR) for the amplification of MRSA/SA DNA and fluorogenic target-specific hybridization probes for the detection of the amplified DNA. A negative result does not preclude nasal colonization. Performed By: #### L [id number] ####[facility] ([place])[address] [place] [address] PROTIME-INRon 06-25-2023 INR IN PPP BY COAGULATION ASSAY 1.02 Normal 0.90-1.10 [facility] Comment on above: Result Comment: [facility] P RECOMMENDED INR FOR WARFARIN THERAPY CONDITION INRPROPHYLAXIS OF VENOUS THROMBOSIS 2-3(HIGH-RISK SURGERY)TREATMENT OF VENOUS THROMBOSIS 2-3TREATMENT OF PULMONARY EMBOLISM 2-3PREVENTION OF SYSTEMIC EMBOLISM: 2-3 ACUTE MYOCARDIAL INFARCTION TISSUE HEART VALVES VALVULAR HEART DISEASE ATRIAL FIBRILLATION RECURRENT SYSTEMIC EMBOLISMMECHANICAL HEART VALVE 2.5-3.5 FROM: ORAL ANTICOAGULANTS. MECHANISM OF ACTION, CLINICAL EFFECTIVENESS, AND OPTIMAL THERAPEUTIC RANGE. CHEST 1995;108:231S-246S. Performed By: #### L [id number] ####[facility] Followap)[address] [place] [address] PROTHROMBIN TIME (PT) IN PPP BY COAGULATION ASSAY 13.4 Seconds Normal 12.3-14.8 [facility] Comment on above: Performed By: #### L [id number] ####[facility] ([facility])[address] [place] [address] TYPE AND SCREENon 06-25-2023 AB SCREEN Negative Normal [facility] Comment on above: Performed By: #### L [id number] ####[facility], ABO group Nom (Bld) A Normal Unive [facility] Comment on above: Performed By: #### L [id number] ####[facility], RH TYPE IN BLOOD Negative Normal Universi [facility] Comment on above: Performed By: #### L [id number] ####[facility], URINALYSISon 06-25-2023 BILIRUBIN, TOTAL PRESENCE IN URINE Negative Normal Negative [facility] Comment on above: Performed By: #### L [id number] ####[facility] ([facility])[address] [place] [address] Clarity (U) Clear Normal Clear [facility] Comment on above: Performed By: #### L [id number] ####[facility] ([facility])[address] [place] [address] Color (U) Kylie Abnormal Yellow [facility] Comment on above: Performed By: #### L [id number] ####[facility] ([facility])[address] [place] [address] Glucose (U) [Mass/Vol] Negative Normal Negative [facility] Comment on above: Performed By: #### L [id number] ####[facility] ([facility])[address] [place] [address] HEMOGLOBIN PRESENCE IN URINE Negative Normal Negative [facility] Comment on above: Performed By: #### L [id number] ####[facility] ([facility])[address] [place] [address] Ketones Ql (U) Negative Normal Negative [facility] Comment on above: Performed By: #### L [id number] ####[facility] ([facility])[address] [place] [address] LEUKOCYTE ESTERASE PRESENCE IN URINE BY TEST STRIP Negative Normal Negative [facility] Comment on above: Performed By: #### L [id number] ####[facility] ([facility])[address] [place] [address] NITRITE PRESENCE IN URINE Negative Normal Negative [facility] Comment on above: Performed By: #### L [id number] ####[facility] ([facility])[address] [place] [address] pH (U) 5.0 [pH] Normal 5.0-8.0 [facility] Comment on above: Performed By: #### L [id number] ####[facility] ([facility])[address] [place] [address] Protein (U) [Mass/Vol] 100 mg/dL Abnormal Negative [facility] Comment on above: Performed By: #### L [id number] ####[facility] ([facility])[address] [place] [address] Specific gravity (U) [Rel density] 1.033 High 1.015-1.020 [facility] Comment on above: Performed By: #### L [id number] ####[facility] ([facility])[address] [place] [address] UROBILINOGEN (EU/DL) IN URINE 2.0 EU/dL Abnormal Negative [facility] Comment on above: Performed By: #### L [id number] ####[facility] ([facility])[address] [place] [address] URINALYSIS MICROSCOPICon CALCIUM OXALATE CRYSTALS (#/HPF) IN URINE Occasional Abnormal None Seen [facility] Comment on above: Performed By: #### L [id number] ####[facility] ([facility])[address] [place] [address] CASTS IN URINE Normal [facility] Comment on above: Performed By: #### L [id number] ####[facility] ([facility])[address] [place] [address] CRYSTALS IN URINE Present Abnormal None Seen [facility] Comment on above: Performed By: #### L [id number] ####[facility] ([facility])[address] [place] [address] MUCUS (#/HPF) IN URINE SEDIMENT Moderate Abnormal None Seen, Occasional, Few [facility] Comment on above: Performed By: #### L [id number] ####[facility] ([facility])[address] [place] [address] RBC (#/HPF) IN URINE SEDIMENT 3-5 Abnormal None Seen [facility] Comment on above: Performed By: #### L [id number] ####[facility] ([facility])[address] [place] [address] SQUAMOUS EPITHELIAL CELLS (#/HPF) IN URINE SEDIMENT Few Abnormal None Seen, Occasional [facility] Comment on above: Performed By: #### L [id number] ####[facility] ([facility])[address] [place] [address] WBC (LEUKOCYTE) (#/HPF) IN URINE SEDIMENT 0-2 Abnormal None Seen [facility] Comment on above: Performed By: #### L [id number] ####[facility] ([facility])[address] [place] [address] 30on 06-24-2023 30 Normal [facility] 30 Normal [facility] 30 Normal [facility] ANESon 06-24-2023 ANES Normal [facility] CBC WITH AUTO DIFFERENTIALon 06-24-2023 Basophils (Bld) [#/Vol] 0.03 10*3/uL Normal 0.00-0.20 [facility] Comment on above: Performed By: #### L [id number] ####[facility] ([facility])[address] [place] [address] Basophils/100 WBC (Bld) 0.4 % Normal 0.0-1.0 [facility] Comment on above: Performed By: #### L [id number] ####[facility] ([facility])[address] [place] [address] Eosinophils (Bld) [#/Vol] 0.57 10*3/uL High 0.00-0.50 [facility] Comment on above: Performed By: #### L [id number] ####[facility] ([facility])[address] [place] [address] Eosinophils/100 WBC (Bld) 7.7 % High 0.0-6.0 [facility] Comment on above: Performed By: #### L [id number] ####[facility] ([facility])[address] [place] [address] Erythrocyte distribution width (RBC) [Ratio] 16.3 % High 11.5-15.0 [facility] Comment on above: Performed By: #### L [id number] ####[facility] ([facility])[address] [place] [address] ERYTHROCYTE MEAN CORPUSCULAR HEMOGLOBIN CONCENTRATION (G/DL) BY AUTOMATED 33.1 g/dL Normal 32.0-35.0 [facility] Comment on above: Performed By: #### L [id number] ####[facility] ([facility])[address] [place] [address] Hematocrit (Bld) [Volume fraction] 35.3 % Low 39.0-55.0 [facility] Comment on above: Performed By: #### L [id number] ####[facility] ([facility])[address] [place] [address] Hemoglobin (Bld) [Mass/Vol] 11.7 g/dL Low 13.0-17.0 [facility] Comment on above: Performed By: #### L [id number] ####[facility] ([facility])[address] [place] [address] Immature granulocytes (Bld) [#/Vol] 0.03 10*3/uL Normal 0.00-0.20 [facility] Comment on above: Performed By: #### L [id number] ####[facility] ([facility])[address] [place] [address] Immature granulocytes/100 WBC (Bld) 0.4 % Normal 0.0-1.0 [facility] Comment on above: Performed By: #### L [id number] ####[facility] ([facility])[address] [place] [address] Lymphocytes (Bld) [#/Vol] 1.05 10*3/uL Low 1.20-4.00 [facility] Comment on above: Performed By: #### L [id number] ####[facility] ([facility])[address] [place] [address] Lymphocytes/100 WBC (Bld) 14.2 % Low 20.0-45.0 [facility] Comment on above: Performed By: #### L [id number] ####[facility] ([facility])[address] [place] [address] MCH (RBC) [Entitic mass] 29.3 pg Normal 27.0-33.0 [facility] Comment on above: Performed By: #### L [id number] ####[facility] ([facility])[address] [place] [address] MCV (RBC) [Entitic vol] 88.5 fL Normal 82.0-98.0 [facility] Comment on above: Performed By: #### L [id number] ####[facility] ([facility])[address] [place] [address] Monocytes (Bld) [#/Vol] 0.50 10*3/uL Normal 0.10-1.00 [facility] Comment on above: Performed By: #### L [id number] ####[facility] ([facility])[address] [place] [address] Monocytes/100 WBC (Bld) 6.8 % Normal 5.0-12.0 [facility] Comment on above: Performed By: #### L [id number] ####[facility] ([facility])[address] [place] [address] Neutrophils (Bld) [#/Vol] 5.20 10*3/uL Normal 1.60-7.60 [facility] Comment on above: Performed By: #### L [id number] ####[facility] ([facility])[address] [place] [address] Neutrophils/100 WBC (Bld) 70.5 % Normal 40.0-72.0 [facility] Comment on above: Performed By: #### L [id number] ####[facility] ([facility])[address] [place] [address] NRBC (PER 100 WBCS) BY AUTOMATED COUNT 0.0 % Normal 0 [facility] Comment on above: Performed By: #### L [id number] ####[facility] ([facility])[address] [place] [address] PLATELETS (10*3/UL) IN BLOOD AUTOMATED COUNT 141 10*3/uL Low 150-400 [facility] Comment on above: Performed By: #### L [id number] ####[facility] ([facility])[address] [place] [address] RBC (Bld) [#/Vol] 3.99 10*6/uL Low 4.20-5.70 [facility] Comment on above: Performed By: #### L [id number] ####[facility] ([facility])[address] [place] [address] WBC (Bld) [#/Vol] 7.38 10*3/uL Normal 4.00-10.60 [facility] Comment on above: Performed By: #### L [id number] ####[facility] ([facility])[address] [place] [address] COMPREHENSIVE METABOLIC PANE Braulio 06-24-2023 Albumin [Mass/Vol] 4.1 g/dL Normal 3.5-5.7 [facility] Comment on above: Performed By: #### L [id number] ####[facility] ([facility])[address] [place] [address] ALP [Catalytic activity/Vol] 53 U/L Normal 34-104 [facility] Comment on above: Performed By: #### L [id number] ####[facility] ([facility])[address] [place] [address] ALT [Catalytic activity/Vol] 12 U/L Normal 7-52 [facility] Comment on above: Performed By: #### L [id number] ####[facility] ([facility])[address] [place] [address] Anion gap [Moles/Vol] 12 mmol/L Normal 7-20 [facility] Comment on above: Performed By: #### L [id number] ####[facility] ([facility])[address] [place] [address] AST [Catalytic activity/Vol] 11 U/L Low 13-39 [facility] Comment on above: Performed By: #### L [id number] ####[facility] ([facility])[address] [place] [address] Bilirubin [Mass/Vol] 0.9 mg/dL Normal 0.3-1.0 [facility] Comment on above: Performed By: #### L [id number] ####[facility] ([facility])[address] [place] [address] Calcium [Mass/Vol] 9.0 mg/dL Normal 8.6-10.3 [facility] Comment on above: Performed By: #### L [id number] ####[facility] ([facility])[address] [place] [address] Chloride [Moles/Vol] 100 mmol/L Normal 98-107 [facility] Comment on above: Performed By: #### L [id number] ####[facility] ([facility])[address] [place] [address] CO2 [Moles/Vol] 26 mmol/L Normal 21-31 [facility] Comment on above: Performed By: #### L [id number] ####[facility] ([facility])[address] [place] [address] Creatinine [Mass/Vol] 0.84 mg/dL Normal 0.70-1.30 [facility] Comment on above: Performed By: #### L [id number] ####[facility] ([facility])[address] [place] [address] GLOMERULAR FILTRATION RATE ML/MIN/1.73 SQ M.PREDICTED 106.2 mL/min/1.73m*2 Normal >60.0 [facility] Comment on above: Result Comment: [facility]???s estimated glomerular filtration rate (eGFR) will no [...] of individuals. Performed By: #### L [id number] ####[facility] ([facility])[address] [place] [address] Glucose [Mass/Vol] 95 mg/dL Normal 70-100 [facility] Comment on above: Performed By: #### L [id number] ####[facility] ([facility])[address] [place] [address] Potassium [Moles/Vol] 3.9 mmol/L Normal 3.5-5.1 [facility] Comment on above: Performed By: #### L [id number] ####[facility] ([facility])[address] [place] [address] Protein [Mass/Vol] 6.5 g/dL Normal 6.0-8.3 [facility] Comment on above: Performed By: #### L [id number] ####[facility] ([facility])[address] [place] [address] Sodium [Moles/Vol] 134 mmol/L Low 136-145 [facility] Comment on above: Performed By: #### L [id number] ####[facility] ([facility])[address] [place] [address] Urea nitrogen [Mass/Vol] 12 mg/dL Normal 7-25 [facility] Comment on above: Performed By: #### L [id number] ####[facility] ([facility])[address] [place] [address] UREA NITROGEN/CREATININE (MASS RATIO) IN SER/PLAS 14.3 Normal [facility] Comment on above: Performed By: #### L [id number] ####[facility] ([facility])[address] [place] [address] Documentationon 06-24-2023 Documentation Normal [facility] HPon 06-24-2023 HP Normal [facility] MAGNESIUMon 06-24-2023 Magnesium [Mass/Vol] 1.9 mg/dL Normal 1.9-2.7 [facility] Comment on above: Performed By: #### L [id number] ####[facility] ([facility])[address] [place] [address] 30on 06-23-2023 30 Normal [facility] 30 Normal [facility] CBC WITH AUTO DIFFERENTIALon 06-23-2023 Basophils (Bld) [#/Vol] 0.04 10*3/uL Normal 0.00-0.20 [facility] Comment on above: Performed By: #### L [id number] ####[facility] ([facility])[address] [place] [address] Basophils/100 WBC (Bld) 0.5 % Normal 0.0-1.0 [facility] Comment on above: Performed By: #### L [id number] ####[facility] ([facility])[address] [place] [address] Eosinophils (Bld) [#/Vol] 0.56 10*3/uL High 0.00-0.50 [facility] Comment on above: Performed By: #### L [id number] ####[facility] ([facility])[address] [place] [address] Eosinophils/100 WBC (Bld) 7.5 % High 0.0-6.0 [facility] Comment on above: Performed By: #### L [id number] ####[facility] ([facility])[address] [place] [address] Erythrocyte distribution width (RBC) [Ratio] 16.7 % High 11.5-15.0 [facility] Comment on above: Performed By: #### L [id number] ####[facility] ([facility])[address] [place] [address] ERYTHROCYTE MEAN CORPUSCULAR HEMOGLOBIN CONCENTRATION (G/DL) BY AUTOMATED 33.2 g/dL Normal 32.0-35.0 [facility] Comment on above: Performed By: #### L [id number] ####[facility] ([facility])[address] [place] [address] Hematocrit (Bld) [Volume fraction] 34.9 % Low 39.0-55.0 [facility] Comment on above: Performed By: #### L [id number] ####[facility] ([facility])[address] [place] [address] Hemoglobin (Bld) [Mass/Vol] 11.6 g/dL Low 13.0-17.0 [facility] Comment on above: Performed By: #### L [id number] ####[facility] ([facility])[address] [place] [address] Immature granulocytes (Bld) [#/Vol] 0.03 10*3/uL Normal 0.00-0.20 [facility] Comment on above: Performed By: #### L [id number] ####[facility] ([facility])[address] [place] [address] Immature granulocytes/100 WBC (Bld) 0.4 % Normal 0.0-1.0 [facility] Comment on above: Performed By: #### L [id number] ####[facility] ([facility])[address] [place] [address] Lymphocytes (Bld) [#/Vol] 1.08 10*3/uL Low 1.20-4.00 [facility] Comment on above: Performed By: #### L [id number] ####[facility] ([facility])[address] [place] [address] Lymphocytes/100 WBC (Bld) 14.5 % Low 20.0-45.0 [facility] Comment on above: Performed By: #### L [id number] ####[facility] ([facility])[address] [place] [address] MCH (RBC) [Entitic mass] 29.6 pg Normal 27.0-33.0 [facility] Comment on above: Performed By: #### L [id number] ####[facility] ([facility])[address] [place] [address] MCV (RBC) [Entitic vol] 89.0 fL Normal 82.0-98.0 [facility] Comment on above: Performed By: #### L [id number] ####[facility] ([facility])[address] [place] [address] Monocytes (Bld) [#/Vol] 0.50 10*3/uL Normal 0.10-1.00 [facility] Comment on above: Performed By: #### L [id number] ####[facility] ([facility])[address] [place] [address] Monocytes/100 WBC (Bld) 6.7 % Normal 5.0-12.0 [facility] Comment on above: Performed By: #### L [id number] ####[facility] ([facility])[address] [place] [address] Neutrophils (Bld) [#/Vol] 5.24 10*3/uL Normal 1.60-7.60 [facility] Comment on above: Performed By: #### L [id number] ####[facility] ([facility])[address] [place] [address] Neutrophils/100 WBC (Bld) 70.4 % Normal 40.0-72.0 [facility] Comment on above: Performed By: #### L [id number] ####[facility] ([facility])[address] [place] [address] NRBC (PER 100 WBCS) BY AUTOMATED COUNT 0.0 % Normal 0 [facility] Comment on above: Performed By: #### L [id number] ####[facility] ([facility])[address] [place] [address] PLATELETS (10*3/UL) IN BLOOD AUTOMATED COUNT 120 10*3/uL Low 150-400 [facility] Comment on above: Performed By: #### L [id number] ####[facility] ([facility])[address] [place] [address] RBC (Bld) [#/Vol] 3.92 10*6/uL Low 4.20-5.70 [facility] Comment on above: Performed By: #### L [id number] ####[facility] ([facility])[address] [place] [address] WBC (Bld) [#/Vol] 7.45 10*3/uL Normal 4.00-10.60 [facility] Comment on above: Performed By: #### L [id number] ####[facility] ([facility])[address] [place] [address] COMPREHENSIVE METABOLIC PANE Braulio 06-23-2023 Albumin [Mass/Vol] 4.1 g/dL Normal 3.5-5.7 [facility] Comment on above: Performed By: #### L [id number] ####[facility] [facility] ([facility])[address] [place] [address] ALP [Catalytic activity/Vol] 52 U/L Normal 34-104 [facility] Comment on above: Performed By: #### L [id number] ####[facility] ([facility])[address] [place] [address] ALT [Catalytic activity/Vol] 12 U/L Normal 7-52 [facility] Comment on above: Performed By: #### L [id number] ####[facility] ([facility])[address] [place] [address] Anion gap [Moles/Vol] 9 mmol/L Normal 7-20 [facility] Comment on above: Performed By: #### L [id number] ####[facility] ([facility])[address] [place] [address] AST [Catalytic activity/Vol] 9 U/L Low 13-39 [facility] Comment on above: Performed By: #### L [id number] ####[facility] ([facility])[address] [place] [address] Bilirubin [Mass/Vol] 1.0 mg/dL Normal 0.3-1.0 [facility] Comment on above: Performed By: #### L [id number] ####[facility] ([facility])[address] [place] [address] Calcium [Mass/Vol] 8.7 mg/dL Normal 8.6-10.3 [facility] Comment on above: Performed By: #### L [id number] ####[facility] ([facility])[address] [place] [address] Chloride [Moles/Vol] 101 mmol/L Normal 98-107 [facility] Comment on above: Performed By: #### L [id number] ####[facility] ([facility])[address] [place] [address] CO2 [Moles/Vol] 27 mmol/L Normal 21-31 [facility] Comment on above: Performed By: #### L [id number] ####[facility] ([facility])[address] [place] [address] Creatinine [Mass/Vol] 0.77 mg/dL Normal 0.70-1.30 [facility] Comment on above: Performed By: #### L [id number] ####[facility] ([facility])[address] [place] [address] GLOMERULAR FILTRATION RATE ML/MIN/1.73 SQ M.PREDICTED 109.1 mL/min/1.73m*2 Normal >60.0 [facility] Comment on above: Result Comment: [facility]???s estimated glomerular filtration rate (eGFR) will no [...] of individuals. Performed By: #### L [id number] ####[facility] ([facility])[address] [place] [address] Glucose [Mass/Vol] 106 mg/dL High 70-100 [facility] Comment on above: Performed By: #### L [id number] ####[facility] ([facility])[address] [place] [address] Potassium [Moles/Vol] 4.1 mmol/L Normal 3.5-5.1 [facility] Comment on above: Performed By: #### L [id number] ####[facility] ([facility])[address] [place] [address] Protein [Mass/Vol] 6.2 g/dL Normal 6.0-8.3 [facility] Comment on above: Performed By: #### L [id number] ####[facility] ([facility])[address] [place] [address] Sodium [Moles/Vol] 133 mmol/L Low 136-145 [facility] Comment on above: Performed By: #### L [id number] ####[facility] ([facility])[address] [place] [address] Urea nitrogen [Mass/Vol] 13 mg/dL Normal 7-25 [facility] Comment on above: Performed By: #### L [id number] ####[facility] ([facility])[address] [place] [address] UREA NITROGEN/CREATININE (MASS RATIO) IN SER/PLAS 16.9 Normal [facility] Comment on above: Performed By: #### L [id number] ####[facility] ([facility])[address] [place] [address] CONSULTon 06-23-2023 CONSULT Normal [facility] 30on 06-22-2023 30 Normal [facility] 30 Normal [facility] APTTon 06-22-2023 ACTIVATED PARTIAL THROMBOPLASTIN TIME IN PPP BY COAGULATION ASSAY 31.2 Seconds Normal 25.0-35.0 [facility] Comment on above: Result Comment: Clin ical significance of the APTT is questionable in the presence of heparin. Performed By: #### L [id number] ####[facility] ([facility])[address] [place] [address] CBC WITH AUTO DIFFERENTIALon 06-22-2023 Basophils (Bld) [#/Vol] 0.03 10*3/uL Normal 0.00-0.20 [facility] Comment on above: Performed By: #### L [id number] ####[facility] ([facility])[address] [place] [address] Basophils/100 WBC (Bld) 0.4 % Normal 0.0-1.0 [facility] Comment on above: Performed By: #### L [id number] ####[facility] ([facility])[address] [place] [address] Eosinophils (Bld) [#/Vol] 0.39 10*3/uL Normal 0.00-0.50 [facility] Comment on above: Performed By: #### L [id number] ####[facility] ([facility])[address] [place] [address] Eosinophils/100 WBC (Bld) 5.0 % Normal 0.0-6.0 [facility] Comment on above: Performed By: #### L [id number] ####[facility] ([facility])[address] [place] [address] Erythrocyte distribution width (RBC) [Ratio] 16.3 % High 11.5-15.0 [facility] Comment on above: Performed By: #### L [id number] ####[facility] ([facility])[address] [place] [address] ERYTHROCYTE MEAN CORPUSCULAR HEMOGLOBIN CONCENTRATION (G/DL) BY AUTOMATED 33.1 g/dL Normal 32.0-35.0 [facility] Comment on above: Performed By: #### L [id number] ####[facility] ([facility])[address] [place] [address] Hematocrit (Bld) [Volume fraction] 35.6 % Low 39.0-55.0 [facility] Comment on above: Performed By: #### L [id number] ####[facility] ([facility])[address] [place] [address] Hemoglobin (Bld) [Mass/Vol] 11.8 g/dL Low 13.0-17.0 [facility] Comment on above: Performed By: #### L [id number] ####[facility] ([facility])[address] [place] [address] Immature granulocytes (Bld) [#/Vol] 0.02 10*3/uL Normal 0.00-0.20 [facility] Comment on above: Performed By: #### L [id number] ####[facility] ([facility])[address] [place] [address] Immature granulocytes/100 WBC (Bld) 0.3 % Normal 0.0-1.0 [facility] Comment on above: Performed By: #### L [id number] ####[facility] ([facility])[address] [place] [address] Lymphocytes (Bld) [#/Vol] 0.72 10*3/uL Low 1.20-4.00 [facility] Comment on above: Performed By: #### L [id number] ####[facility] ([facility])[address] [place] [address] Lymphocytes/100 WBC (Bld) 9.2 % Low 20.0-45.0 [facility] Comment on above: Performed By: #### L [id number] ####[facility] ([facility])[address] [place] [address] MCH (RBC) [Entitic mass] 29.0 pg Normal 27.0-33.0 [facility] Comment on above: Performed By: #### L [id number] ####[facility] ([facility])[address] [place] [address] MCV (RBC) [Entitic vol] 87.5 fL Normal 82.0-98.0 [facility] Comment on above: Performed By: #### L [id number] ####[facility] ([facility])[address] [place] [address] Monocytes (Bld) [#/Vol] 0.41 10*3/uL Normal 0.10-1.00 [facility] Comment on above: Performed By: #### L [id number] ####[facility] ([facility])[address] [place] [address] Monocytes/100 WBC (Bld) 5.2 % Normal 5.0-12.0 [facility] Comment on above: Performed By: #### L [id number] ####[facility] ([facility])[address] [place] [address] Neutrophils (Bld) [#/Vol] 6.24 10*3/uL Normal 1.60-7.60 [facility] Comment on above: Performed By: #### L [id number] ####[facility] ([facility])[address] [place] [address] Neutrophils/100 WBC (Bld) 79.9 % High 40.0-72.0 [facility] Comment on above: Performed By: #### L [id number] ####[facility] ([facility])[address] [place] [address] NRBC (PER 100 WBCS) BY AUTOMATED COUNT 0.0 % Normal 0 [facility] Comment on above: Performed By: #### L [id number] ####[facility] ([facility])[address] [place] [address] PLATELETS (10*3/UL) IN BLOOD AUTOMATED COUNT 110 10*3/uL Low 150-400 [facility] Comment on above: Performed By: #### L [id number] ####[facility] ([facility])[address] [place] [address] RBC (Bld) [#/Vol] 4.07 10*6/uL Low 4.20-5.70 [facility] Comment on above: Performed By: #### L [id number] ####[facility] ([facility])[address] [place] [address] WBC (Bld) [#/Vol] 7.81 10*3/uL Normal 4.00-10.60 [facility] Comment on above: Performed By: #### L [id number] ####[facility] ([facility])[address] [place] [address] CKon 06-22-2023 CREATINE KINASE (U/L) IN SER/PLAS 22.0 U/L Low 30.0-223.0 [facility] Comment on above: Performed By: #### L [id number] ####[facility] ([facility])[address] [place] [address] COMPREHENSIVE METABOLIC PANE Braulio 06-22-2023 Albumin [Mass/Vol] 4.0 g/dL Normal 3.5-5.7 [facility] Comment on above: Performed By: #### L [id number] ####[facility] ([facility])[address] [place] [address] ALP [Catalytic activity/Vol] 52 U/L Normal 34-104 [facility] Comment on above: Performed By: #### L [id number] ####[facility] ([facility])[address] [place] [address] ALT [Catalytic activity/Vol] 13 U/L Normal 7-52 [facility] Comment on above: Performed By: #### L [id number] ####[facility] ([facility])[address] [place] [address] Anion gap [Moles/Vol] 12 mmol/L Normal 7-20 [facility] Comment on above: Performed By: #### L [id number] ####[facility] ([facility])[address] [place] [address] AST [Catalytic activity/Vol] 9 U/L Low 13-39 [facility] Comment on above: Performed By: #### L [id number] ####[facility] ([facility])[address] [place] [address] Bilirubin [Mass/Vol] 1.1 mg/dL High 0.3-1.0 [facility] Comment on above: Performed By: #### L [id number] ####[facility] ([facility])[address] [place] [address] Calcium [Mass/Vol] 9.1 mg/dL Normal 8.6-10.3 [facility] Comment on above: Performed By: #### L [id number] ####[facility] ([facility])[address] [place] [address] Chloride [Moles/Vol] 100 mmol/L Normal 98-107 [facility] Comment on above: Performed By: #### L [id number] ####[facility] ([facility])[address] [place] [address] CO2 [Moles/Vol] 26 mmol/L Normal 21-31 [facility] Comment on above: Performed By: #### L [id number] ####[facility] ([facility])[address] [place], [place] [address] Creatinine [Mass/Vol] 0.82 mg/dL Normal 0.70-1.30 [facility] Comment on above: Performed By: #### L [id number] ####[facility] ([facility])[address] [place] [address] GLOMERULAR FILTRATION RATE ML/MIN/1.73 SQ M.PREDICTED 107.0 mL/min/1.73m*2 Normal >60.0 [facility] Comment on above: Result Comment: [facility]???s estimated glomerular filtration rate (eGFR) will no [...] of individuals. Performed By: #### L [id number] ####[facility] ([facility])[address] [place] [address] Glucose [Mass/Vol] 161 mg/dL High 70-100 [facility] Comment on above: Performed By: #### L [id number] ####[facility] ([facility])[address] [place] [address] Potassium [Moles/Vol] 4.0 mmol/L Normal 3.5-5.1 [facility] Comment on above: Performed By: #### L [id number] ####[facility] ([facility])[address] [place] [address] Protein [Mass/Vol] 6.3 g/dL Normal 6.0-8.3 [facility] Comment on above: Performed By: #### L [id number] ####[facility] ([facility])[address] [place] [address] Sodium [Moles/Vol] 134 mmol/L Low 136-145 [facility] Comment on above: Performed By: #### L [id number] ####[facility] ([facility])[address] [place] [address] Urea nitrogen [Mass/Vol] 14 mg/dL Normal 7-25 [facility] Comment on above: Performed By: #### L [id number] ####[facility] ([facility])[address] [place] [address] UREA NITROGEN/CREATININE (MASS RATIO) IN SER/PLAS 17.1 [facility] Comment on above: Performed By: #### L [id number] ####[facility] ([facility])[address] [place] [address] CONSULTon 06-22-2023 CONSULT Normal [facility] MAGNESIUMon 06-22-2023 Magnesium [Mass/Vol] 1.8 mg/dL Low 1.9-2.7 [facility] Comment on above: Performed By: #### L [id number] ####[facility] ([place])[address] [place] [address] PROTIME-INRon 06-22-2023 INR IN PPP BY COAGULATION ASSAY 1.05 Normal 0.90-1.10 [facility] Comment on above: Result Comment: [facility] P RECOMMENDED INR FOR WARFARIN THERAPY CONDITION INRPROPHYLAXIS OF VENOUS THROMBOSIS 2-3(HIGH-RISK SURGERY)TREATMENT OF VENOUS THROMBOSIS 2-3TREATMENT OF PULMONARY EMBOLISM 2-3PREVENTION OF SYSTEMIC EMBOLISM: 2-3 ACUTE MYOCARDIAL INFARCTION TISSUE HEART VALVES VALVULAR HEART DISEASE ATRIAL FIBRILLATION RECURRENT SYSTEMIC EMBOLISMMECHANICAL HEART VALVE 2.5-3.5 FROM: ORAL ANTICOAGULANTS. MECHANISM OF ACTION, CLINICAL EFFECTIVENESS, AND OPTIMAL THERAPEUTIC RANGE. CHEST 1995;108:[id number]. Performed By: #### L [id number] ####[facility] ([place])[address] [place] [address] PROTHROMBIN TIME (PT) IN PPP BY COAGULATION ASSAY 13.7 Seconds Normal 12.3-14.8 [facility] Comment on above: Performed By: #### L [id number] ####[facility] ([place])[address] [place] [address] 30on 06-21-2023 30 [facility] 30 [facility] 30 The patient is Moder ately Unstable - Medium risk of patient condition declining or worsening The patient's goals for the shift include COMFORT The clinical goals for the shift include VSS [facility] 30 [facility] 30 The patient is Moder ately Stable - Low risk of patient condition declining or worsening The patient's goals for the shift include COMFORT The clinical goals for the shift include VSS Normal [facility] ANESon 06-21-2023 ANES Normal [facility] B-TYPE NATRIURETIC PEPTIDEon 06-21-2023 Natriuretic peptide B (Bld) [Mass/Vol] 147 pg/mL High 0-100 [facility] Comment on above: Performed By: #### L [id number] ####[facility] ([facility])[address] [place] [address] BLOOD CULTUREon 06-21-2023 Bacteria identified Cx Nom (Bld) No growth at 5 days Normal [place] Comment on above: Order Comment: From a different site than #1. Performed By: #### L [id number] ####[facility] ([facility])[address] [place] [address] C-REACTIVE PROTEINon 024 C REACTIVE PROTEIN (MG/L) IN SER/PLAS 23.3 mg/L High 0.0-7.0 [facility] Comment on above: Performed By: #### L [id number] ####[facility] ([facility])[address] [place] [address] CBC WITH AUTO DIFFERENTIALon 06-21-2023 Basophils (Bld) [#/Vol] 0.04 10*3/uL Normal 0.00-0.20 [facility] Comment on above: Performed By: #### L [id number] ####[facility] ([facility])[address] [place] [address] Basophils/100 WBC (Bld) 0.4 % Normal 0.0-1.0 [facility] Comment on above: Performed By: #### L [id number] ####[facility] ([facility])[address] [place] [address] Eosinophils (Bld) [#/Vol] 0.24 10*3/uL Normal 0.00-0.50 [facility] Comment on above: Performed By: #### L [id number] ####[facility] ([facility])[address] [place] [address] Eosinophils/100 WBC (Bld) 2.7 % Normal 0.0-6.0 [facility] Comment on above: Performed By: #### L [id number] ####[facility] ([facility])[address] [place] [address] Erythrocyte distribution width (RBC) [Ratio] 16.2 % High 11.5-15.0 [facility] Comment on above: Performed By: #### L [id number] ####[facility] ([facility])[address] [place] [address] ERYTHROCYTE MEAN CORPUSCULAR HEMOGLOBIN CONCENTRATION (G/DL) BY AUTOMATED 33.1 g/dL Normal 32.0-35.0 [facility] Comment on above: Performed By: #### L [id number] ####[facility] ([facility])[address] [place] [address] Hematocrit (Bld) [Volume fraction] 35.6 % Low 39.0-55.0 [facility] Comment on above: Performed By: #### L [id number] ####[facility] ([facility])[address] [place] [address] Hemoglobin (Bld) [Mass/Vol] 11.8 g/dL Low 13.0-17.0 [facility] Comment on above: Performed By: #### L [id number] ####[facility] ([facility])[address] [place] [address] Immature granulocytes (Bld) [#/Vol] 0.03 10*3/uL Normal 0.00-0.20 [facility] Comment on above: Performed By: #### L [id number] ####[facility] ([facility])[address] [place] [address] Immature granulocytes/100 WBC (Bld) 0.3 % Normal 0.0-1.0 [facility] Comment on above: Performed By: #### L [id number] ####[facility] ([facility])[address] [place] [address] Lymphocytes (Bld) [#/Vol] 1.23 10*3/uL Normal 1.20-4.00 [facility] Comment on above: Performed By: #### L [id number] ####[facility] ([facility])[address] [place] [address] Lymphocytes/100 WBC (Bld) 13.7 % Low 20.0-45.0 [facility] Comment on above: Performed By: #### L [id number] ####[facility] ([facility])[address] [place] [address] MCH (RBC) [Entitic mass] 29.4 pg Normal 27.0-33.0 [facility] Comment on above: Performed By: #### L [id number] ####[facility] ([facility])[address] [place] [address] MCV (RBC) [Entitic vol] 88.6 fL Normal 82.0-98.0 [facility] Comment on above: Performed By: #### L [id number] ####[facility] ([facility])[address] [place] [address] Monocytes (Bld) [#/Vol] 0.52 10*3/uL Normal 0.10-1.00 [facility] Comment on above: Performed By: #### L [id number] ####[facility] ([facility])[address] [place] [address] Monocytes/100 WBC (Bld) 5.8 % Normal 5.0-12.0 [facility] Comment on above: Performed By: #### L [id number] ####[facility] ([facility])[address] [place] [address] Neutrophils (Bld) [#/Vol] 6.92 10*3/uL Normal 1.60-7.60 [facility] Comment on above: Performed By: #### L [id number] ####[facility] ([facility])[address] [place] [address] Neutrophils/100 WBC (Bld) 77.1 % High 40.0-72.0 [facility] Comment on above: Performed By: #### L [id number] ####[facility] ([facility])[address] [place] [address] NRBC (PER 100 WBCS) BY AUTOMATED COUNT 0.0 % Normal 0 [facility] Comment on above: Performed By: #### L [id number] ####[facility] ([facility])[address] [address] PLATELETS (10*3/UL) IN BLOOD AUTOMATED COUNT 109 10*3/uL Low 150-400 [facility] Comment on above: Performed By: #### L [id number] ####[facility] ([facility])[address] [place] [address] RBC (Bld) [#/Vol] 4.02 10*6/uL Low 4.20-5.70 [facility] Comment on above: Performed By: #### L [id number] ####[facility] ([facility])[address] [place], [place] [address] WBC (Bld) [#/Vol] 8.98 10*3/uL Normal 4.00-10.60 [facility] Comment on above: Performed By: #### L [id number] ####[facility] ([facility])[address] [place], [place] [address] COMPREHENSIVE METABOLIC PANE Braulio 06-21-2023 Albumin [Mass/Vol] 4.0 g/dL Normal 3.5-5.7 [facility] Comment on above: Performed By: #### L [id number] ####[facility] ([facility])[address] [place] [address] ALP [Catalytic activity/Vol] 47 U/L Normal 34-104 [facility] Comment on above: Performed By: #### L [id number] ####[facility] ([facility])[address] [place] [address] ALT [Catalytic activity/Vol] 14 U/L Normal 7-52 [facility] Comment on above: Performed By: #### L [id number] ####[facility] ([facility])[address] [place] [address] Anion gap [Moles/Vol] 11 mmol/L Normal 7-20 [facility] Comment on above: Performed By: #### L [id number] ####[facility] ([facility])[address] [place] [address] AST [Catalytic activity/Vol] 11 U/L Low 13-39 [facility] Comment on above: Performed By: #### L [id number] ####[facility] ([facility])[address] [place] [address] Bilirubin [Mass/Vol] 1.1 mg/dL High 0.3-1.0 [facility] Comment on above: Performed By: #### L [id number] ####[facility] ([facility])[address] [place] [address] Calcium [Mass/Vol] 8.9 mg/dL Normal 8.6-10.3 [facility]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 following information about you: Pulse Blood pressure Weight Height 89/minute 133/67 180.5 kg 1.854 m Salome Aguillon APRN.HAND FLESHER 05/21/2022 6:45 PM Addendum This note was [...] 2020. This is a workers comp issue-through [facility]/Dr. Cowan. 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 Shoulder replacement surgery left 08/23/24. 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 ENDO/WT: -needs f/up endo wt managmeent Dr. 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 Man/Agustina-endo wt management team [phone] Will review at upcoming appointment. Protein noted in urine. Vitamin D is low at 30.7-recommend jutp-mqr-fpobkga vitamin D3 1000 units daily. Cholesterol is elevated, worsening when compared to prior-we will discuss increasing cholesterol medication. Kidney, liver, electrolytes look fine. Thyroid lab looks fine. PSA/prostate lab looks fine. A1c is stable at 5.4. Blood count looks fine. Written by Salome Aguillon APRN.HAND FLESHER on 05/21/2022 3:44 PM EST Last 2 [...] Negative Ketones, Urine Negative Trace (A) Specific [place], Ur 1.005 - 1.030 >=1.030 (H) Hemoglobin/Blood,Ur [...] hyperlipidemia Obst (more content not included)... Normal [facility] 25(OH)D3 [facility] 25-hydroxyvitamin D3 [Mass/Vol] 30.7 ng/mL Low 31.0-80.0 [facility] Comment on above: Order Comment: Speci men Type: BLOOD SPECIMEN Ordering Facility: [facility] Address: [address] [address] Result Comment: Clas sification of 25 [place] Vitamin D status: Deficiency/Insufficiency: < or = 30 ng/ml. Sufficiency/Optimal Levels: 31-80 ng/mL Toxicity: > 100 ng/mL. Test performed by chemiluminescent immunoassay. Performed By: #### 1 989-3 #### [facility] CLIA [id number] [address] [place] [address] [place] CBC panel Auto (Bld)on 05-19 Erythrocyte distribution width (RBC) [Ratio] 12.9 % Normal 11.5-15.0 [facility] Comment on above: Order Comment: Speci men Type: URINE SPECIMEN Ordering Facility: [facility] Address: [address] [address] Performed By: #### L [id number] #### [place] [facility] CLIA [id number] [address] [place] [address] [place] Hematocrit (Bld) [Volume fraction] 42.7 % Normal 39.0-51.0 [facility] Comment on above: Order Comment: Speci men Type: URINE SPECIMEN Ordering Facility: [facility] Address: [address] [place] [address] Performed By: #### L [id number] #### [facility] CLIA [id number] [address] [place] [address] [place] [facility] Hemoglobin (Bld) [Mass/Vol] 14.5 g/dL Normal 13.0-17.0 [facility] Comment on above: Order Comment: Speci men Type: URINE SPECIMEN Ordering Facility: [facility] Address: [address] [place] [address] Performed By: #### L [id number] #### [facility] CLIA [id number] [address] [place] [address] [place] MCH (RBC) [Entitic mass] 29.2 pg Normal 26.0-34.0 [facility] Comment on above: Order Comment: Speci men Type: URINE SPECIMEN Ordering Facility: [facility] Address: [address] [place] [address] Performed By: #### L [id number] #### [facility] CLIA [id number] [address] [place] [address] [place] MCHC (RBC) [Mass/Vol] 34.0 g/dL Normal 30.5-36.0 [facility] Comment on above: Order Comment: Speci men Type: URINE SPECIMEN Ordering Facility: [facility] Address: [address] [place] [address] Performed By: #### L [id number] #### [facility] CLIA [id number] [address] [place] [address] STATES [facility] MCV (RBC) [Entitic vol] 85.9 fL Normal 80.0-100.0 [facility] Comment on above: Order Comment: Speci men Type: URINE SPECIMEN Ordering Facility: [facility] Address: [address] [place], [place] [address] Performed By: #### L [id number] #### [facility] CLIA [id number] [address] [place] [address] [place] Nucleated RBC (Bld) [#/Vol] 10*3/uL Normal <0.01 [facility] Comment on above: Order Comment: Speci men Type: URINE SPECIMEN Ordering Facility: [facility] Address: [address] [place] [address] Performed By: #### L [id number] #### [facility] CLIA [id number] [address] [place] [address] [place] Platelet mean volume (Bld) [Entitic vol] 10.2 fL Normal 9.0-12.7 [facility] Comment on above: Order Comment: Speci men Type: URINE SPECIMEN Ordering Facility: [facility] Address: [address] [place] [address] Performed By: #### L [id number] #### [facility] CLIA [id number] [address] [place] [address] [place] Platelets (Bld) [#/Vol] 189 10*3/uL Normal 150-400 [facility] Comment on above: Order Comment: Speci men Type: URINE SPECIMEN Ordering Facility: [facility] Address: [address] [place] [address] Performed By: #### L [id number] #### [facility] CLIA [id number] [address] [place] [address] [place] RBC (Bld) [#/Vol] 4.97 10*6/uL Normal 4.20-6.00 [facility] Comment on above: Order Comment: Speci men Type: URINE SPECIMEN Ordering Facility: [facility] Address: [address] [place] [address] Performed By: #### L [id number] #### [facility] CLIA [id number] [address] [place] [address] [place] WBC (Bld) [#/Vol] 5.26 10*3/uL Normal 3.70-11.00 [facility] Comment on above: Order Comment: Speci men Type: URINE SPECIMEN Ordering Facility: [facility] Address: [address] [address] Performed By: #### L [id number] #### CRISTOBAL [facility] CLIA [id number] [address] [place] [address] [facility] Comprehensive metabolic 2000 panelon 05-19-2022 Albumin [Mass/Vol] 4.4 g/dL Normal 3.9-4.9 [facility] Comment on above: Order Comment: Speci men Type: BLOOD SPECIMENOrdering Facility: [facility] Address: [address] [address] Performed By: #### 2 4323-8, 72753-9 ####[facility]OB[facility] LABCLIA [id number] [place] [address] [place] ALP [Catalytic activity/Vol] 83 U/L Normal 38-113 [facility] Comment on above: Order Comment: Speci men Type: BLOOD SPECIMENOrdering Facility: [facility] Address: [address] [address] Performed By: #### 2 4323-8, 54882-4 ####[facility] LABCLIA [id number] [address] [place] ALT [Catalytic activity/Vol] 45 U/L Normal 10-54 [facility] Comment on above: Order Comment: Speci men Type: BLOOD SPECIMENOrdering Facility: [facility] Address: [address] [address] Performed By: #### 2 4323-8, 84229-0 ####AMHORALIA [facility] LABCLIA [id number] [address] [place] [address] [place] Anion gap [Moles/Vol] 10 mmol/L Normal 9-18 [facility] Comment on above: Order Comment: Speci men Type: BLOOD SPECIMENOrdering Facility: [facility] Address: [address] [address] Performed By: #### 2 4323-8, 94588-5 ####[facility]OB[facility] LABCLIA [id number] [place] [address] [place] AST [Catalytic activity/Vol] 31 U/L Normal 14-40 [facility] Comment on above: Order Comment: Speci men Type: BLOOD SPECIMENOrdering Facility: [facility] Address: [address] [address] Performed By: #### 2 432-8, 82299-7 ####[facility]OB[facility] LABCLIA [id number] [address] [address] [place] Bilirubin [Mass/Vol] 0.6 mg/dL Normal 0.2-1.3 [facility] Comment on above: Order Comment: Speci men Type: BLOOD SPECIMENOrdering Facility: [facility] Address: [address] [address] Performed By: #### 2 4328, 89438-3 ####CRISTOBAL [facility] LABIA [id number] [place] [address] [place] Calcium [Mass/Vol] 9.5 mg/dL Normal 8.5-10.2 [facility] Comment on above: Order Comment: Speci men Type: BLOOD SPECIMENOrdering Facility: [facility] Address: [address] [address] Performed By: #### 2 43238, 08268-3 ####[facility] LABCLIA [id number] [address] [address] [place] Chloride [Moles/Vol] 103 mmol/L Normal 97-105 [facility] Comment on above: Order Comment: Speci men Type: BLOOD SPECIMENOrdering Facility: [facility] Address: [address] [address] Performed By: #### 2 4323-8, 14043-7 ####[facility] LABCLIA [id number] [place] [address] [place] CO2 [Moles/Vol] 26 mmol/L Normal 22-30 [facility] Comment on above: Order Comment: Speci men Type: BLOOD SPECIMENOrdering Facility: [facility] Address: [address] [address] Performed By: #### 2 4323-8, 04267-6 ####[facility]ST [facility] LABCLIA [id number] [address] [place] Creatinine [Mass/Vol] 0.98 mg/dL Normal 0.73-1.22 [facility] Comment on above: Order Comment: Speci men Type: BLOOD SPECIMENOrdering Facility: [facility] Address: [address] [place] [address] Performed By: #### 2 4323-8, 93327-1 ####[facility]ST [facility] LABIA [id number] [address] OF [facility] ESTIMATED GLOMERULAR FILTRATION RATE 95 mL/min/1.73m??? Normal >=60 [facility] Comment on above: Order Comment: Speci men Type: BLOOD SPECIMENOrdering Facility: [facility] Address: [address] [place] [address] Result Comment: Halle mated Glomerular Filtration Rate [...] actual GFR. Performed By: #### 2 4323-8, 73943-1 ####[facility] LABCLIA [id number] [place] [address] [place] Glucose [Mass/Vol] 203 mg/dL High 74-99 [facility] Comment on above: Order Comment: Speci men Type: BLOOD SPECIMENOrdering Facility: [facility] Address: [address] [place] [address] Result Comment: The [place] Diabetes Association (ADA) provides guidance for cutoff [...] Standards of Medical Care in Diabetes 2016, [place] [employer]. Diabetes Care. 2016.39(Suppl 1). Performed By: #### 2 4323-8, 60781-2 ####CR[facility] LABIA [id number] [place] [address] [place] Potassium [Moles/Vol] 4.6 mmol/L Normal 3.7-5.1 [facility] Comment on above: Order Comment: Speci men Type: BLOOD SPECIMENOrdering Facility: [facility] Address: [address] [address] Performed By: #### 2 43206-06, ####[facility] [id number] [place] [address] [place] Protein [Mass/Vol] 7.4 g/dL Normal 6.3-8.0 [facility] Comment on above: Order Comment: Speci men Type: BLOOD SPECIMENOrdering Facility: [facility] Address: [address] [address] Performed By: #### 2 4328, ####[facility] LABIA [id number] [address] [address] [place] Sodium [Moles/Vol] 139 mmol/L Normal 136-144 [facility] Comment on above: Order Comment: Speci men Type: BLOOD SPECIMENOrdering Facility: [facility] Address: [address] [address] Performed By: #### 2 43206-06, 49396-4 ####[facility] LABCLIA [id number] [place] [address] [place] Urea nitrogen [Mass/Vol] 17 mg/dL Normal 9-24 [facility] Comment on above: Order Comment: Speci men Type: BLOOD SPECIMENOrdering Facility: [facility] Address: [address] [address] Performed By: #### 2 4323-8, 25500-2 ####[facility] LABCLIA [id number] [place] [address] [place] HbA1c (Bld)on 05-19-2022 Average glucose Estimated from glycated hemoglobin (Bld) [Mass/Vol] 108 mg/dL Normal [facility] Comment on above: Order Comment: Speci men Type: URINE SPECIMEN Ordering Facility: [facility] Address: [address] [place] [address] Result Comment: eAG: (Estimated average glucose) is a calculated value from HgbA1c and is advertising representative of the average blood glucose level in the last 2-3 month period. Performed By: #### L [id number] #### [facility] CLIA [id number] [address] [place] [address] [place] [facility] HbA1c (Bld) [Mass fraction] 5.4 % Normal 4.3-5.6 [facility] Comment on above: Order Comment: Speci men Type: URINE SPECIMEN Ordering Facility: [facility] Address: [address] [place] [address] Result Comment: Amer [place] Diabetes Association guidelines indicate that patients with HgbA1c in the range 5.7-6.4% are at increased risk for development of diabetes, and intervention by lifestyle modification may be beneficial. HgbA1c greater or equal to 6.5% is considered diagnostic of diabetes. Performed By: #### L [id number] #### [facility] CLIA [id number] [address] [place], [place] [address] [place] Lipid 1996 panelon 3 Cholesterol [Mass/Vol] 219 mg/dL High <200 [facility] Comment on above: Order Comment: Speci men Type: BLOOD SPECIMENOrdering Facility: [facility] Address: [address] [address] Result Comment: <200 mg/dL, Desirable 200-239 mg/dL, Borderline high >239 mg/dL, High Performed By: #### 2 4323-8, 81787-5 ####[facility] LABCLIA [id number] [place] [address] [place] Cholesterol in HDL [Mass/Vol] 38 mg/dL Low >39 [facility] Comment on above: Order Comment: Speci men Type: BLOOD SPECIMENOrdering Facility: [facility] Address: [address] [place] [address] Result Comment: 40-5 9 mg/dL, Acceptable >59 mg/dL, High: Negative risk factor for coronary heart disease <40 mg/dL, Low: Positive risk factor for coronary heart disease Performed By: #### 2 4323-8, 56242-0 ####[facility] LABCLIA [id number] [place] [address] [place] Cholesterol in LDL [Mass/Vol] 149 mg/dL High <100 [facility] Comment on above: Order Comment: Speci men Type: BLOOD SPECIMENOrdering Facility: [facility] Address: [address] [place] [address] Result Comment: <100 mg/dL, Optimal 100-129 mg/dL, Near optimal/above optimal 130-159 mg/dL, Borderline high 160-189 mg/dL, High >189 mg/dL, Very high Secondary prevention optimal LDL Cholesterol levels are recommended to be < 70 mg/dL Performed By: #### 2 4323-8, 42956-9 ####[facility] LABCLIA [id number] [place] [address] [place] Cholesterol in LDL/Cholesterol in HDL [Mass ratio] 3.92 {ratio} High <2.54 [facility] Comment on above: Order Comment: Speci men Type: BLOOD SPECIMENOrdering Facility: [facility] Address: [address] [place] [address] Result Comment: Refe rence: 1. National Cholesterol Education Program ATP III Guideline At-A-Glance Quick Desk Reference: National Heart, Lung, and Blood [place]. National Institutes of Health. 2001: NIH Publication No. 01-3305. 2. An International Atherosclerosis Society position paper: global recommendations for the management of dyslipidemia: executive summary, Atherosclerosis. 2014: 232(2):410-413. Performed By: #### 2 4323-8, 26459-1 ####[facility] LABCLIA [id number] [place] [address] [place] Cholesterol in VLDL [Mass/Vol] 32 mg/dL High <30 [facility] System Comment on above: Order Comment: Speci men Type: BLOOD SPECIMENOrdering Facility: [facility] Address: [address] [place] [address] Performed By: #### 2 4323-8, 87024-8 ####CRISTOBAL [facility] LABIA [id number] [address] [place] Cholesterol non HDL [Mass/Vol] 181 mg/dL High <130 [facility] Comment on above: Order Comment: Speci men Type: BLOOD SPECIMENOrdering Facility: [facility] Address: [address] [place] [address] Result Comment: <130 mg/dL, Optimal 130-159 mg/dL, Near optimal/above optimal 160-189 mg/dL, Borderline high 190-219 mg/dL, High >219 mg/dL, Very high Secondary prevention optimal non HDL Cholesterol levels are recommended to be <100 mg/dL Performed By: #### 2 4323-8, 94611-0 ####[facility] LABCLIA [id number] [place] [address] [place] Cholesterol.total/Ch olesterol in HDL [Mass ratio] 5.76 {ratio} High <5.10 [facility] Comment on above: Order Comment: Speci men Type: BLOOD SPECIMENOrdering Facility: [facility] Address: [address] [place] [address] Performed By: #### 2 4323-8, 19604-3 ####[facility] LABCLIA [id number] [place] [id number] [place] FASTING TIME 10 hrs Normal [facility] Comment on above: Order Comment: Speci men Type: BLOOD SPECIMENOrdering Facility: [facility] Address: [address] [place] [address] Performed By: #### 2 4323-8, 33077-6 ####[facility] LABCLIA [id number] [place] [address] [place] Triglyceride [Mass/Vol] 161 mg/dL High <150 [facility] Comment on above: Order Comment: Speci men Type: BLOOD SPECIMENOrdering Facility: [facility] Address: [address] [place] [address] Result Comment: <150 mg/dL, Normal 150-199 mg/dL, Borderline high 200-499 mg/dL, High >499 mg/dL, Very high Performed By: #### 2 4328, 70411-3 ####[facility] LABCLIA [id number] [place] [address] [place] PSA/PROSTSPECAG SCRNon 05-19 Prostate specific Ag [Mass/Vol] 0.56 ng/mL Normal <2.60 [facility] Comment on above: Order Comment: Speci men Type: BLOOD SPECIMENOrdering Facility: [facility] Address: [address] [place] [address] Result Comment: Tota l PSA test methodology used is the Electrochemiluminescence Immunoassay by [employer]. Total PSA values by differing methodologies cannot be interchanged. Performed By: #### P SAS1 ####[facility] LABCLIA [id number] [facility] [id number] [place] [address] [place] TSH SerPl-aCncon 05-19-2022 TSH Qn 1.020 m[IU]/L Normal 0.270-4.200 [facility] Comment on above: Order Comment: Speci men Type: BLOOD SPECIMENOrdering Facility: [facility] Address: [address] [place] [place] [address] Performed By: #### 3 016-3 ####[facility] LABCLIA [id number] ANTHONYDominik [facility] [id number] [place] [address] [place] URINALYSIS, REFLEX MICROSCOP ICon 05-19-2022 Bilirubin Ql (U) Negative Normal Negative [facility] Comment on above: Order Comment: Speci men Type: URINE SPECIMEN [facility] Address: [address] [place] [address] Performed By: #### L [id number] #### [facility] LAB CLIA [id number] [address] [place] [address] [place] Clarity (Unsp spec) Clear Normal Clear [facility] Comment on above: Order Comment: Speci men Type: URINE SPECIMEN [facility] Address: [address] [place] [address] Performed By: #### L [id number] #### [facility] LAB CLIA [id number] [address] [place] [address] [place] [facility] Color (U) Yellow Normal Yellow [facility] Comment on above: Order Comment: Speci men Type: URINE SPECIMEN [facility] Address: [address] [place] [address] Performed By: #### L [id number] #### [facility] LAB CLIA [id number] [address] [place] [address] [place] Epithelial cells LM.HPF (Urine sed) [#/Area] Few Normal [facility] Comment on above: Order Comment: Speci men Type: URINE SPECIMEN [facility] Address: [address] [place] [address] Performed By: #### L [id number] #### [facility] LAB CLIA [id number] [address] [place] [address] [place] Glucose Test strip (U) [Mass/Vol] Negative Normal Negative [facility] Comment on above: Order Comment: Speci men Type: URINE SPECIMEN [facility] Address: [address] [place] [address] Performed By: #### L [id number] #### [facility] LAB CLIA [id number] [address] [place] [address] [place] Hemoglobin Ql (U) Negative Normal Negative [facility] Comment on above: Order Comment: Speci men Type: URINE SPECIMEN [facility] Address: [address] [place] [address] Performed By: #### L [id number] #### [facility] LAB CLIA [id number] [address] [place] [address] [place] [facility] Ketones Ql (U) Trace Abnormal Negative [facility] Comment on above: Order Comment: Speci men Type: URINE SPECIMEN [facility] Address: [address] [place] [address] Performed By: #### L [id number] #### [facility] LAB CLIA [id number] [address] [place] [address] [place] [facility] Leukocyte esterase Test strip Ql (U) Negative Normal Negative [facility] Comment on above: Order Comment: Speci men Type: URINE SPECIMEN [facility] Address: [address] [place] [address] Performed By: #### L [id number] #### [facility] LAB CLIA [id number] [address] [place] [address] [place] Nitrite Ql (U) Negative Normal Negative [facility] Comment on above: Order Comment: Speci men Type: URINE SPECIMEN [facility] Address: [address] [place] [address] Performed By: #### L [id number] #### [facility] LAB CLIA [id number] [address] [place] [address] [place] pH (U) 5.5 [pH] Normal 5.0-8.0 [facility] Comment on above: Order Comment: Speci men Type: URINE SPECIMEN [facility] Address: [address] [place] [address] Performed By: #### L [id number] #### [facility] LAB CLIA [id number] [address] [place] [address] Protein (U) [Mass/Vol] 1+ Abnormal Negative [facility] Comment on above: Order Comment: Speci men Type: URINE SPECIMEN [facility] Address: [address] [place] [address] Performed By: #### L [id number] #### [facility] LAB CLIA [id number] [address] [place] [address] [place] RBC LM.HPF (Urine sed) [#/Area] 0-3 /HPF Normal 0-3 /HPF [facility] Comment on above: Order Comment: Speci men Type: URINE SPECIMEN [facility] Address: [address] [place] [address] Performed By: #### L [id number] #### [facility] LAB CLIA [id number] [address] [place] [address] Specific gravity (U) [Rel density] >=1.030 High 1.005-1.030 [facility] Comment on above: Order Comment: Speci men Type: URINE SPECIMEN [facility] Address: [address] [place] [address] Performed By: #### L [id number] #### [facility] LAB CLIA [id number] [address] [place] [address] Urobilinogen Ql (U) 0.2 EU/dL Normal 0.2-1.0 EU/dL [facility] Comment on above: Order Comment: Speci men Type: URINE SPECIMEN [facility] Address: [address] [place] [address] Performed By: #### L [id number] #### [facility] LAB CLIA [id number] [address] [place], [place] [address] [facility] WBC LM.HPF (Urine sed) [#/Area] 0-5 /HPF Normal 0-5 /HPF [facility] Comment on above: Order Comment: Speci men Type: URINE SPECIMEN [facility] Address: [address] [place] [address] Performed By: #### L [id number] #### [facility] LAB CLIA [id number] [address] [place], [place] [address] [facility] MRI CSPINE WO CONon 04-23-19 MRI CSPINE [...] HERRERA Date: 2022-04-23 06:50 Normal [facility] XR FOREIGN BODY EYEon 2022 XR FOREIGN BODY EYE EXAMINATION: XR FORE IGN BODY EYE HISTORY: Foreign body in eye COMPARISON: No relevant comparison available. FINDINGS: ORBITS: Negative for a metallic foreign body. OTHER: Negative. IMPRESSION: 1. No metallic foreign body within the orbits. Electronically authenticated by: JAYY GIVENS Date: 2022-04-20 13:52 Normal [facility] CNOVon 02-15-2022 CNOV Office Visit ([facility] ) -- NEHAL BAIG ([id number]) 1970 M Date Time Provider Department 02/15/22 2:20 PM SALOME AGUILLON [facility] During your visit today, we recorded the following information about you: Pulse Blood pressure Weight 72/minute 147/82 177.8 kg Salome Aguillon APRN.HAND FLESHER 02/15/2022 4:56 PM Signed Salome Aguillon APRN.HAND FLESHER 02/15/2022 4:56 PM Signed This note was created using NoteWriter. Subjective Nehal Baig is a 51 year old male. CC: routine f/up Last seen: HPI ENDO/WT: -needs f/up endo wt managmeent Dr. 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 Man/Agustina-endo wt management team [phone] Has been off metformin 6 weeks + [...] 2020. This is a workers comp issue-through [facility] ortho/Dr. Cowan. 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 Shoulder replacement surgery left 08/23/24. 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 HM: -declines flu vaccine [...] looks fine. Vitamin D is low-please begin iiky-ytq-nashzej vitamin D3 2000 units daily. Urine asymptomatic. Component Latest Ref Rng AND Units 02/10/2022 Color Yellow Yellow Clarity Clear Clear Glucose, Urine Negative Negative Bilirubin, Urine Negative Negative Ketones, Urine Negative Negative Specific [place], Ur 1.005 - 1.030 1.037 (H) Hemoglobin/Blood,Ur [...] other (Epilepsy) (more content not included)... Normal [facility] 25(OH)D3 SerPl-mCncon 2021 25-hydroxyvitamin D3 [Mass/Vol] 28.2 ng/mL Low 31.0-80.0 [facility] Comment on above: Order Comment: Speci men Type: BLOOD SPECIMENOrdering Facility: [facility] Address: [address] [place] [address] Result Comment: Clas sification of 25 [place] Vitamin D status: Deficiency/Insufficiency: < or = 30 ng/ml. Sufficiency/Optimal Levels: 31-80 ng/mL Toxicity: > 100 ng/mL. Test performed by chemiluminescent immunoassay. Performed By: #### 1 989-3 ####[facility] LABIA [id number] [place] [address] [place] CBC panel Auto (Bld)on 02-10 Erythrocyte distribution width (RBC) [Ratio] 13.2 % Normal 11.5-15.0 [facility] Comment on above: Order Comment: Speci men Type: BLOOD SPECIMENOrdering Facility: [facility] Address: [address] [place] [address] Performed By: #### 5 8410-2 ####[facility] LABIA [id number] [place] [address] [place] Hematocrit (Bld) [Volume fraction] 41.9 % Normal 39.0-51.0 [facility] Comment on above: Order Comment: Speci men Type: BLOOD SPECIMENOrdering Facility: [facility] Address: [address] [place], [place] [address] Performed By: #### 5 8410-2 ####[facility] LABIA [id number] [place] [address] [place] Hemoglobin (Bld) [Mass/Vol] 13.9 g/dL Normal 13.0-17.0 [facility] Comment on above: Order Comment: Speci men Type: BLOOD SPECIMENOrdering Facility: [facility] Address: [address] [place], [place] [address] Performed By: #### 5 8410-2 ####[facility] [id number] [address] STATES [facility] MCH (RBC) [Entitic mass] 29.0 pg Normal 26.0-34.0 [facility] Comment on above: Order Comment: Speci men Type: BLOOD SPECIMENOrdering Facility: [facility] Address: [address] [place] [address] Performed By: #### 5 8410-2 ####[facility] [id number] [address] [place] MCHC (RBC) [Mass/Vol] 33.2 g/dL Normal 30.5-36.0 [facility] Comment on above: Order Comment: Speci men Type: BLOOD SPECIMENOrdering Facility: [facility] Address: [address] [place] [address] Performed By: #### 5 8410-2 ####[facility] [id number] [address] [place] MCV (RBC) [Entitic vol] 87.5 fL Normal 80.0-100.0 [facility] Comment on above: Order Comment: Speci men Type: BLOOD SPECIMENOrdering Facility: [facility] Address: [address] [place] [address] Performed By: #### 5 8410-2 ####[facility] [id number] [address] [place] Nucleated RBC (Bld) [#/Vol] 10*3/uL Normal <0.01 [facility] Comment on above: Order Comment: Speci men Type: BLOOD SPECIMENOrdering Facility: [facility] Address: [address] [place] [address] Performed By: #### 5 8410-2 ####[facility] [id number] [address] [place] Platelet mean volume (Bld) [Entitic vol] 10.6 fL Normal 9.0-12.7 [facility] Comment on above: Order Comment: Speci men Type: BLOOD SPECIMENOrdering Facility: [facility] Address: [address] [place], [place] [address] Performed By: #### 5 8410-2 ####[facility] LABCLIA [id number] [place] [address] [place] Platelets (Bld) [#/Vol] 198 10*3/uL Normal 150-400 [facility] Comment on above: Order Comment: Speci men Type: BLOOD SPECIMENOrdering Facility: [facility] Address: [address] [place], [place] [address] Performed By: #### 5 8410-2 ####[facility] LABCLIA [id number] [address] STATES OF [facility] RBC (Bld) [#/Vol] 4.79 10*6/uL Normal 4.20-6.00 [facility] Comment on above: Order Comment: Speci men Type: BLOOD SPECIMENOrdering Facility: [facility] Address: [address] [place], [place] [address] Performed By: #### 5 8410-2 ####[facility] LABIA [id number] [place] [address] [place] WBC (Bld) [#/Vol] 6.46 10*3/uL Normal 3.70-11.00 [facility] Comment on above: Order Comment: Speci men Type: BLOOD SPECIMENOrdering Facility: [facility] Address: [address] [place], [place] [address] Performed By: #### 5 8410-2 ####[facility] LABCLIA [id number] [place] [address] [place] Comprehensive metabolic 2000 panelon 02-10-2022 Albumin [Mass/Vol] 4.5 g/dL Normal 3.9-4.9 [facility] Comment on above: Order Comment: Speci men Type: BLOOD SPECIMENOrdering Facility: [facility] Address: [address] [place] [address] Performed By: #### 3 016-3, ####[facility] LABCLIA [id number] [place] [address] [place]#### 93235-3 ####[facility] LABCLIA [id number] [facility] [place] [id number] [place] [facility] LABORATORYCLIA [id number] [place] [address] [place] ALP [Catalytic activity/Vol] 85 U/L Normal 38-113 [facility] Comment on above: Order Comment: Speci men Type: BLOOD SPECIMENOrdering Facility: [facility] Address: [address] [place] [address] Performed By: #### 3 016-3, ####[facility] LABCLIA [id number] [facility] [place] [address] [place]#### 40685-0 ####[facility] LABCLIA [id number] [facility] [address] STATES OF [facility] LABORATORYCLIA [id number] [place] [address] [place] ALT [Catalytic activity/Vol] 34 U/L Normal 10-54 [facility] Comment on above: Order Comment: Speci men Type: BLOOD SPECIMENOrdering Facility: [facility] Address: [address] [place] [address] Performed By: #### 3 016-3, ####[facility] LABCLIA [id number] [facility] [place] [address] [place]#### 91212-9 ####[facility] LABCLIA [id number] [place] [address] [place] [facility] LABORATORYCLIA [id number] [place] [address] [place] Anion gap [Moles/Vol] 10 mmol/L Normal 9-18 [facility] Comment on above: Order Comment: Speci men Type: BLOOD SPECIMENOrdering Facility: [facility] Address: [address] [place] [address] Performed By: #### 3 016-3, 32601-9 ####[facility] LABCLIA [id number] [place] [address] [place]#### 03064-6 ####[facility] LABCLIA [id number] [address] STATES OF [facility] LABORATORYCLIA [id number] [place] [address] [place] AST [Catalytic activity/Vol] 25 U/L Normal 14-40 [facility] Comment on above: Order Comment: Speci men Type: BLOOD SPECIMENOrdering Facility: [facility] Address: [address] [place], [place] [address] Performed By: #### 3 016-3, 62277-5 ####[facility] LABCLIA [id number] [place] [address] [place]#### 14168-3 ####[facility] LABCLIA [id number] [place] [id number] [place] [facility] LABORATORYCLIA [id number] [place] [address] [place] Bilirubin [Mass/Vol] 0.4 mg/dL Normal 0.2-1.3 [facility] Comment on above: Order Comment: Speci men Type: BLOOD SPECIMENOrdering Facility: [facility] Address: [address] Performed By: #### 3 016-3, ####[facility] LABCLIA [id number] [place] [address] [place]#### 60785-8 ####[facility] LABCLIA [id number] [address] [address] [place] [facility] LABORATORYCLIA [id number] [place] [address] [place] Calcium [Mass/Vol] 9.3 mg/dL Normal 8.5-10.2 [facility] Comment on above: Order Comment: Speci men Type: BLOOD SPECIMENOrdering Facility: [facility] Address: [address] [place] [address] Performed By: #### 3 016-3, ####[facility] LABCLIA [id number] [place] [address] [place]#### 44932-5 ####[facility] LABCLIA [id number] [place] [id number] [place] [facility] LABORATORYCLIA [id number] [place] [address] [place] Chloride [Moles/Vol] 103 mmol/L Normal 97-105 [facility] Comment on above: Order Comment: Speci men Type: BLOOD SPECIMENOrdering Facility: [facility] Address: [address] [place] [address] Performed By: #### 3 016-3, ####[facility] LABCLIA [id number] [place] [address] [place]#### 25387-4 ####[facility] LABCLIA [id number] [address] [address] [place] [facility] LABORATORYCLIA [id number] [place] [address] [place] CO2 [Moles/Vol] 26 mmol/L Normal 22-30 [facility] Comment on above: Order Comment: Speci men Type: BLOOD SPECIMENOrdering Facility: [facility] Address: [address] [place] [address] Performed By: #### 3 016-3, 19096-2 ####[facility] LABCLIA [id number] [address] [place]#### 75783-0 ####[facility] LABCLIA [id number] [address] [facility] LABORATORYCLIA [id number] [address] STATES OF [facility] Creatinine [Mass/Vol] 0.90 mg/dL Normal 0.73-1.22 [facility] Comment on above: Order Comment: Speci men Type: BLOOD SPECIMENOrdering Facility: [facility] Address: [address] [place] [address] Performed By: #### 3 016-3, 57286-0 ####[facility] LABCLIA [id number] [address]#### 77651-6 ####[facility] LABCLIA [id number] [address] LABORATORYCLIA [id number] [address] ESTIMATED GLOMERULAR FILTRATION RATE 105 mL/min/1.73m??? Normal >=60 [facility] Comment on above: Order Comment: Speci men Type: BLOOD SPECIMENOrdering Facility: [facility] Address: [address] [place] [address] Result Comment: Halle mated Glomerular Filtration Rate [...] actual GFR. Performed By: #### 3 016-3, 33365-3 ####[facility] LABCLIA [id number] [address] [place]#### 50070-7 ####[facility] LABCLIA [id number] [address] LABORATORYCLIA [id number] [place] [address] [place] Glucose [Mass/Vol] 115 mg/dL High 74-99 [facility] Comment on above: Order Comment: Speci men Type: BLOOD SPECIMENOrdering Facility: [facility] Address: [address] [place] [address] Result Comment: The [place] [employer] (ADA) provides guidance for cutoff [...] Standards of Medical Care in Diabetes 2016, [place] [employer]. Diabetes Care. 2016.39(Suppl 1). Performed By: #### 3 016-3, 38324-8 ####[facility] LABCLIA [id number] [address] [address] [place]#### 26006-9 ####[facility] LABIA [id number] [address] [address] [facility] LABORATORYCLIA [id number] [place] [address] [place] Potassium [Moles/Vol] 4.2 mmol/L Normal 3.7-5.1 [facility] Comment on above: Order Comment: Speci men Type: BLOOD SPECIMENOrdering Facility: [facility] Address: [address] [place] [address] Performed By: #### 3 016-3, ####[facility] LABCLIA [id number] [facility] [address] [place]#### 24067-7 ####[facility] LABCLIA [id number] [facility] [address] [place] LABORATORYCLIA [id number] [place] [address] [place] Protein [Mass/Vol] 6.9 g/dL Normal 6.3-8.0 [facility] Comment on above: Order Comment: Speci men Type: BLOOD SPECIMENOrdering Facility: [facility] Address: [address] [place] [address] Performed By: #### 3 016-3, ####[facility] LABCLIA [id number] [place] [address] [place]#### 24613-8 ####[facility] LABCLIA [id number] [facility] [address] STATES OF [facility] [place] LABORATORYCLIA [id number] [place] [address] [place] Sodium [Moles/Vol] 139 mmol/L Normal 136-144 [facility] Comment on above: Order Comment: Speci men Type: BLOOD SPECIMENOrdering Facility: [facility] Address: [address] [place] [address] Performed By: #### 3 016-3, ####[facility] LABCLIA [id number] [place] [address] [place]#### 48282-9 ####[facility] LABCLIA [id number] [address] LABORATORYCLIA [id number] [address] STATES [facility] Urea nitrogen [Mass/Vol] 15 mg/dL Normal 9-24 [facility] Comment on above: Order Comment: Speci men Type: BLOOD SPECIMENOrdering Facility: [facility] Address: [address] [place] [address] Performed By: #### 3 016-3, 60429-3 ####[facility] LABCLIA [id number] [address] [place]#### 59895-4 ####[facility] LABCLIA [id number] [address] STATES [facility] LABORATORYCLIA [id number] [address] [place] HbA1c (Bld)on 02-10-2022 Average glucose Estimated from glycated hemoglobin (Bld) [Mass/Vol] 105 mg/dL Normal [facility] Comment on above: Order Comment: Tessa flores Type: BLOOD SPECIMENOrdering Facility: [facility] Address: [address] [place] [address] Result Comment: eAG: (Estimated average glucose) is a calculated value from HgbA1c and is advertising representative of the average blood glucose level in the last 2-3 month period. Performed By: #### 5 5454-3 ####[facility] LABCLIA [id number] [address] STATES [place] HbA1c (Bld) [Mass fraction] 5.3 % Normal 4.3-5.6 [facility] Comment on above: Order Comment: Tessa flores Type: BLOOD SPECIMENOrdering Facility: [facility] Address: [address] [place] [address] Result Comment: Amer ican Diabetes Association guidelines indicate that patients with HgbA1c in the range 5.7-6.4% are at increased risk for development of diabetes, and intervention by lifestyle modification may be beneficial. HgbA1c greater or equal to 6.5% is considered diagnostic of diabetes. Performed By: #### 5 5454-3 ####[facility] LABCLIA [id number] [address] Lipid 1996 panelon 2 Cholesterol [Mass/Vol] 179 mg/dL Normal <200 [facility] Comment on above: Order Comment: Speci men Type: BLOOD SPECIMENOrdering Facility: [facility] Address: [address] [place] [address] Result Comment: <200 mg/dL, Desirable 200-239 mg/dL, Borderline high >239 mg/dL, High Performed By: #### 3 016-3, 46099-2 ####[facility] LABCLIA [id number] [address] [place]#### 69599-3 ####[facility] LABCLIA [id number] [address] LABORATORYCLIA [id number] [address] STATES OF [facility] Cholesterol in HDL [Mass/Vol] 36 mg/dL Low >39 [facility] Comment on above: Order Comment: Speci men Type: BLOOD SPECIMENOrdering Facility: [facility] Address: [address] [place] [address] Result Comment: 40-5 9 mg/dL, Acceptable >59 mg/dL, High: Negative risk factor for coronary heart disease <40 mg/dL, Low: Positive risk factor for coronary heart disease Performed By: #### 3 016-3, 86542-8 ####[facility] LABCLIA [id number] [address] STATES [place]#### 37486-2 ####[facility] LABCLIA [id number] [place] AVEN[facility]EDES[place] Z[address]OFE, [place] [address] [place] [address] LABORATORYCLIA [id number] [place] [address] [place] Cholesterol in LDL [Mass/Vol] 104 mg/dL High <100 [facility] Comment on above: Order Comment: Speci men Type: BLOOD SPECIMENOrdering Facility: [facility] Address: [address] [place] [address] Result Comment: <100 mg/dL, Optimal 100-129 mg/dL, Near optimal/above optimal 130-159 mg/dL, Borderline high 160-189 mg/dL, High >189 mg/dL, Very high Secondary prevention optimal LDL Cholesterol levels are recommended to be < 70 mg/dL Performed By: #### 3 016-3, 50655-1 ####[facility] LABCLIA [id number] [address] STATES [facility]#### 32132-7 ####[facility] LABCLIA [id number] [address] LABORATORYCLIA [id number] [place] [address] [place] Cholesterol in LDL/Cholesterol in HDL [Mass ratio] 2.89 {ratio} High <2.54 [facility] Comment on above: Order Comment: Speci men Type: BLOOD SPECIMENOrdering Facility: [facility] Address: [address] [place] [address] Result Comment: Drois tucker: 1. National Cholesterol Education Program ATP III Guideline At-A-Glance Quick Desk Reference: National Heart, Lung, and Blood [place]. National Institutes of Health. 2001: NIH Publication No. 01-3305. 2. An International Atherosclerosis Society position paper: global recommendations for the management of dyslipidemia: executive summary, Atherosclerosis. 2014: 232(2):410-413. Performed By: #### 3 016-3, 60672-4 ####[facility] LABCLIA [id number] [address] STATES [place]#### 11969-8 ####[facility] LABCLIA [id number] [address] LABORATORYCLIA [id number] [address] [place] Cholesterol in VLDL [Mass/Vol] 39 mg/dL High <30 [facility] Comment on above: Order Comment: Speci men Type: BLOOD SPECIMENOrdering Facility: [facility] Address: [address] [place] [address] Performed By: #### 3 016-3, 75453-7 ####[facility] LABCLIA [id number] [place] [address] [place]#### 08471-9 ####[facility] LABCLIA [id number] [address] STATES OF [facility] LABORATORYCLIA [id number] [place] [address] [place] Cholesterol non HDL [Mass/Vol] 143 mg/dL High <130 [facility] Comment on above: Order Comment: Speci men Type: BLOOD SPECIMENOrdering Facility: [facility] Address: [address] [place] [address] Result Comment: <130 mg/dL, Optimal 130-159 mg/dL, Near optimal/above optimal 160-189 mg/dL, Borderline high 190-219 mg/dL, High >219 mg/dL, Very high Secondary prevention optimal non HDL Cholesterol levels are recommended to be <100 mg/dL Performed By: #### 3 016-3, 22135-2 ####[facility] LABCLIA [id number] [place] [id number] [place]#### 58297-9 ####[facility] LABCLIA [id number] [place] [id number] [place] [facility] LABORATORYCLIA [id number] [place] [address] [place] Cholesterol.total/Ch olesterol in HDL [Mass ratio] 4.97 {ratio} Normal <5.10 [facility] Comment on above: Order Comment: Speci men Type: BLOOD SPECIMENOrdering Facility: [facility] Address: [address] [place] [address] Performed By: #### 3 016-3, ####[facility] LABCLIA [id number] [place] [address] [place]#### 38993-1 ####[facility] LABCLIA [id number] [address] STATES OF [facility] LABORATORYCLIA [id number] [address] STATES OF [facility] FASTING TIME 12 hrs Normal [facility] Comment on above: Order Comment: Speci men Type: BLOOD SPECIMENOrdering Facility: [facility] Address: [address] [place] [address] Performed By: #### 3 016-3, ####[facility] LABCLIA [id number] [address] [place]#### 84105-3 ####[facility] LABCLIA [id number] [address] STATES OF [facility] LABORATORYCLIA [id number] [address] [place] Triglyceride [Mass/Vol] 197 mg/dL High <150 [facility] Comment on above: Order Comment: Speci men Type: BLOOD SPECIMENOrdering Facility: [facility] Address: [address] [place] [address] Result Comment: <150 mg/dL, Normal 150-199 mg/dL, Borderline high 200-499 mg/dL, High >499 mg/dL, Very high Performed By: #### 3 016-3, ####[facility] LABCLIA [id number] [address] [place]#### 91277-0 ####[facility] LABIA [id number] [address] STATES OF [facility] [place] LABORATORYCLIA [id number] [place] [address] [place] PSA/PROSTSPECAG SCRNon 02-10 Prostate specific Ag [Mass/Vol] 0.42 ng/mL Normal <2.60 [facility] Comment on above: Order Comment: Speci men Type: BLOOD SPECIMENOrdering Facility: [facility] Address: [address] [place] [address] Result Comment: Tota l PSA test methodology used is the Electrochemiluminescence Immunoassay by [employer]. Total PSA values by differing methodologies cannot be interchanged. Performed By: #### P SAS1 ####[facility] [id number] [address] OF [facility] TSH SerPl-aCncon 02-10-2022 TSH Qn 1.220 m[IU]/L Normal 0.270-4.200 [facility] Comment on above: Order Comment: Speci men Type: BLOOD SPECIMENOrdering Facility: [facility] Address: [address] [place] [address] Performed By: #### 3 016-3, 18882-0 ####[facility] LABIA [id number] [place] [address] [place]#### 67387-8 ####[facility] LABIA [id number] [address] STATES OF [facility] LABORATORYCLIA [id number] [place] [address] [place] URINALYSIS, REFLEX MICROSCOP ICon 02-10-2022 Bilirubin Ql (U) Negative Normal Negative [facility] Comment on above: Order Comment: Speci men Type: URINE SPECIMENOrdering Facility: [facility] Address: [address] [place] [address] Performed By: #### L [id number] ####[facility] LABCLIA [id number] [place] [address] [place] CALCIUM OXALATE CRYSTALS (UA) Few Abnormal None Seen [facility] Comment on above: Order Comment: Speci men Type: URINE SPECIMENOrdering Facility: [facility] Address: [address] Performed By: #### L [id number] ####[facility] LABCLIA [id number] [place] [address] [place] Clarity (Unsp spec) Clear Normal Clear [facility] Comment on above: Order Comment: Speci men Type: URINE SPECIMENOrdering Facility: [facility] Address: [address] [place] [address] Performed By: #### L [id number] ####[facility] LABCLIA [id number] [place] [address] [place] Color (U) Yellow Normal Yellow [facility] Comment on above: Order Comment: Speci men Type: URINE SPECIMENOrdering Facility: [facility] Address: [address] [place], [place] [address] Performed By: #### L [id number] ####[facility] LABCLIA [id number] [place] [address] [place] Epithelial cells LM.HPF (Urine sed) [#/Area] Few Normal [facility] Comment on above: Order Comment: Speci men Type: URINE SPECIMENOrdering Facility: [facility] Address: [address] [place] [address] Result Comment: Few Performed By: #### L [id number] ####[facility] LABCLIA [id number] [place] [address] [place] Glucose Test strip (U) [Mass/Vol] Negative Normal Negative [facility] Comment on above: Order Comment: Speci men Type: URINE SPECIMENOrdering Facility: [facility] Address: [address] [place] [address] Performed By: #### L [id number] ####[facility] LABCLIA [id number] [place] [address] [place] Hemoglobin Ql (U) Negative Normal Negative [facility] Comment on above: Order Comment: Speci men Type: URINE SPECIMENOrdering Facility: [facility] Address: [address] [place] [address] Performed By: #### L [id number] ####[facility] LABCLIA [id number] [place] [address] [place] Ketones Ql (U) Negative Normal Negative [facility] Comment on above: Order Comment: Speci men Type: URINE SPECIMENOrdering Facility: [facility] Address: [address] [place] [address] Performed By: #### L [id number] ####[facility] LABCLIA [id number] [place] [address] [place] Leukocyte esterase Test strip Ql (U) 75 Joyce/mL Abnormal Negative [facility] Comment on above: Order Comment: Speci men Type: URINE SPECIMENOrdering Facility: [facility] Address: [address] [place] [address] Performed By: #### L [id number] ####[facility] LABCLIA [id number] [place] [address] [place] Nitrite Ql (U) Negative Normal Negative [facility] Comment on above: Order Comment: Speci men Type: URINE SPECIMENOrdering Facility: [facility] Address: [address] [place], [place] [address] Performed By: #### L [id number] ####[facility] LABCLIA [id number] [place] [address] [place] pH (U) 6.0 [pH] Normal 5.0-8.0 [facility] Comment on above: Order Comment: Speci men Type: URINE SPECIMENOrdering Facility: [facility] Address: [address] [place], [place] [address] Performed By: #### L [id number] ####[facility] [id number] [place] [address] [place] Protein (U) [Mass/Vol] 1+ Abnormal Negative [facility] Comment on above: Order Comment: Speci men Type: URINE SPECIMENOrdering Facility: [facility] Address: [address] Performed By: #### L [id number] ####[facility] [id number] [place] [address] [place] RBC LM.HPF (Urine sed) [#/Area] 0-3 /HPF Normal 0-3 /HPF [facility] Comment on above: Order Comment: Speci men Type: URINE SPECIMENOrdering Facility: [facility] Address: [address] [place], [place] [address] Performed By: #### L [id number] ####[facility] [id number] [place] [address] [place] Specific gravity (U) [Rel density] 1.037 High 1.005-1.030 [facility] Comment on above: Order Comment: Speci men Type: URINE SPECIMENOrdering Facility: [facility] Address: [address] [place], [place] [address] Performed By: #### L [id number] ####[facility] [id number] [place] [address] [place] Urobilinogen Ql (U) 1+ Abnormal Negative [facility] Comment on above: Order Comment: Speci men Type: URINE SPECIMENOrdering Facility: [facility] Address: [address] [place], [place] [address] Performed By: #### L [id number] ####[facility] LABCLIA [id number] [place] [address] [place] WBC LM.HPF (Urine sed) [#/Area] 0-5 /HPF Normal 0-5 /HPF [facility] Comment on above: Order Comment: Speci men Type: URINE SPECIMENOrdering Facility: [facility] Address: [address] [place] [address] [place] [address] Performed By: #### L [id number] ####[facility] LABCLIA [id number] [address] [place] CNOVon 11-15-2021 CNOV Office Visit ([facility] ) -- NEHAL BAIG ([id number]) 1970 M Date Time Provider Department 11/15/21 9:00 AM SALOME AGUILLON [facility] During your visit today, we recorded the following information about you: Pulse Blood pressure Weight Height 74/minute 128/64 170.6 kg 1.854 m Salome Aguillon APRN.HAND FLESHER 11/20/2021 5:30 PM Signed This note was created using NoteWriter. Subjective Nehal Baig is a 51 year old male. CC: routine f/up HPI ENDO/WT: -needs f/up endo wt managmeent Dr. 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 Man/Agustina-endo wt management team [phone] RESP-lung nodules stable. Repeat ct and OV [...] 2020. This is a workers comp issue-through [facility] ortho/Dr. Cowan. He previously worked as [...] protein (fish) (more content not included)... Normal [facility] Ramez 10-27-2021 CNPN Telephone (ENDOMN) -- NEHAL BAIG ([id number]) 1970 M Date Time Provider Department 10/27/21 BHARATH DUQUEMN During your visit today, we recorded the [...] Encounter Status:Closed by BHARATH DUQUE on 10/27/21 [facility] CNOVon 09-22-2021 CNOV Office Visit (PULMHI ) -- NEHAL BAIG ([id number]) 1970 M Date Time Provider Department 09/22/21 11:[address] [facility] During your visit today, we recorded [...] MD Pulmonary AND Critical Care Staff Respiratory [facility] SUBJECTIVE September 22, 2021 He [...] was brought to the emergency room at [facility]. He had a CT scan of the [...] his dyspnea is getting worse. 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 Normal [facility] CNOVon 09-19-2021 CNOV Office Visit ([facility] ) -- NEHAL BAIG ([id number]) 1970 M Date Time Provider Department 09/19/21 2:40 PM AGENT BROKER [facility] SABI SHARPE During your visit today, we recorded the following information about you: Stephenie Membreno RN 09/19/2021 3:48 PM Signed IV Access: IV IV Site: right Antecubital IV GAUGE 24 gauge IV Removal Date 09/19/2021 Time 1540pm Reactions: WNL Order reviewed by nurse:yes Medications: Definity - dosage 1.5cc diluted IVP Reaction: No LOT: 1320 EXP: 11/30/[address] [facility] #[id number] MFG: [employer], IncMarina Membreno RN Referring Provider: SALOME AGUILLON [[id number]] Allergies As of Date: 09/19/2021 (No Known Allergies) Date Reviewed: 08/30/2021 Reviewed by: Tarsha Jamison RD - Fully Assessed Visit Diagnosis:SOB (shortness of breath) on exertion [R06.02] Order(s):ECHO [081254] Order #: [id number]: 1 Prescriptions as of 09/19/2021 - metFORMIN [...] Reaction: No LOT: 1320 EXP: 11/30/[address] [facility] #[id number] MFG: [employer] Stephenie Membreno RN Encounter Status:Closed by STEPHENIE MEMBRENO on 09/19/21 [facility] ECHOon 09-19-2021 Echocardiography Echocardiography Rep ort: Transthoracic Echo [facility] Date of service: 09/19/2021 2:59:45 PM RECRUITER Ordering physician: SALOME AGUILLON Indication: Shortness of [...] * * * Final * * * [id number] 10SyngoDynamicsSISUID Normal [facility] No Panel Informationon 09-19 [facility] US ABD RIGHT UPPER QUADRANTo n 09-19-2021 [...] focal fatty sparing near the gallbladder fossa. Rug Cleaning Supervisor: GREGORY Transcribe Date/Time: Sep 19 2021 3:24P Dictated by : BREANNE RICHMOND MD This examination was interpreted and the report reviewed and electronically signed by: BREANNE RICHMOND MD on Sep 19 2021 3:28PM EST [id number] Normal [facility] US ABD SPLEEN -NBon 09-20-19 US ABD [...] focal fatty sparing near the gallbladder fossa. 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 Acetylene Torch Burner (topogram) images: No additional findings. IMPRESSION: Stable pulmonary nodules including the 7 mm nodule along the minor fissure. Transcribed Using Voice Recognition Transcribe Date/Time: Sep 20 2021 2:25P Dictated by: POLY JACKSON MD This examination was interpreted and the report reviewed and electronically signed by: POLY JACKSON MD on Sep 20 2021 2:33PM EST [id number] [facility] 09-13-2021 [facility] Telephone (ENDMED) -- NEHAL BAIG ([id number]) 1970 M Date Time Provider Department 09/13/21 ANH MENA During your visit today, we recorded the following information about you: Ninfa Goyal 09/13/2021 8:57 AM Signed MD Francisco Anguiano [address] Spec Pool 4-6 weeks with me. [...] Status:Closed by NINFA GOYAL on 11/06/21 Normal [facility] BLOOD BANKOrdered By: Darcie Medina on 08-23-2021 ABO/Rh Interp Negative Invalid Interpretation Code [facility] BB Subsection ABSC Gel Interp Negative (08/23/21 6:20 AM) Normal [facility] BB Subsection CHEMISTRYOrdered By: Lab ROP User on 08-23-2021 Glucose [Mass/Vol] 113 mg/dL High 55 - 99 mg/dL [facility] POC Subsection Comment on above: Result Comment: Jes lisandra Meter POC Device SN [id number] Invalid Interpretation Code FT POC Subsection POC User ID [id number] Invalid Interpretation Code [facility] POC Subsection POC Username KIMBERELY ACKERMAN Invalid Interpretation Code [facility] POC Subsection URINALYSISOrdered By: Savannah Schneider on [...] AM) Normal Negative [facility] UA Auto SS [place].plasma/Lithi um.RBC (Bld) [Mass ratio] 0-3 /HPF Normal [...] Spec Desc Barragan (08/23/21 7:36 AM) Normal [facility] UA Auto SS Urobilinogen Qn (U) 1.7112665 {Sean'U}/dL Normal 0.0 - 1.0 EU/dL [facility] UA Auto SS WBC Auto Ql (U) Negative (08/23/21 7:36 AM) Normal Negative [facility] UA Auto SS WBC LM.HPF (Urine sed) [#/Area] 0-5 /HPF Normal 0-5/HPF [facility] UA Auto SS CNOVon 08-15-2021 CNOV Office Visit (ENDMED ) -- NEHAL BAIG ([id number]) 1970 M Date Time Provider Department 08/15/21 [...] weight gain: 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 Weight issues [...] weight loss: Self-directed dieting Have you used [id number] or prescribed weight loss medications? No Have you had a surgical procedure for weight loss? No No flowsheet data found. No flowsheet data found. ALLERGIES: ALLERGIES No Known Allergies CURRENT MEDICATIONS: atorvastatin (LIPITOR) 20 mg tablet Take 1 tablet by mouth daily at bedtime. l (more content not included)... Normal [facility] CNOVon 08-10-2021 CNOV Office Visit ([facility] ) -- NEHAL BAIG ([id number]) 1970 M Date Time Provider Department 08/10/21 9:40 AM SALOME AGUILLON [facility] During your visit today, we recorded the following information about you: Pulse Blood pressure Weight Height 73/minute 127/77 179.6 kg 1.854 m Salome Aguillon APRN.CNP 08/10/2021 10:21 AM Signed This note was [...] 2020. This is a workers comp issue-through [facility]-NOM[facility] nuria/Dr. Cowan. He previously worked as [...] Negative Negative Ketones, Urine Negative Negative Specific [place], Ur 1.005 - 1.030 1.025 Hemoglobin/Blood,Ur Negative [...] (H) Case Report Surgical Pathology Report Case: [id number] . . . FINAL DIAGNOSIS This result [...] Appearance: No (more content not included)... Normal [facility] BLOOD BANKOrdered By: Kat Salcedo on 08-08-2021 ABO/Rh Retype Interp Negative Invalid Interpretation Code [facility] BB Subsection CHEMISTRYOrdered By: SYSTEM SYSTEM on 08-08-2021 Anion gap [Moles/Vol] 11 mmol/L Normal 6 - 16 mEq/L [facility] Remisol Chloride [Moles/Vol] 104 mmol/L Normal 101 - 1 11 mmol/L [facility] Remisol CO2 [Moles/Vol] 25 mmol/L Normal 21 - 31 mmol/L [facility] Remisol Creatinine [Mass/Vol] 0.8 mg/dL Normal 0.5 - 1.3 mg/dL [facility] Remisol GFR/1.73 sq M.predicted among blacks MDRD (S/P/Bld) [Vol rate/Area] mL/min/1.73 m2 Normal >=59mL/min/ 1.73 m2 [facility] Chem S GFR/1.73 sq M.predicted among non-blacks MDRD (S/P/Bld) [Vol rate/Area] mL/min/1.73 m2 Normal >=59mL/min/ 1.73 m2 [facility] Chem S Glucose [Mass/Vol] 103 mg/dL Normal [...] 83.6 fL Normal 80.0 - 100.0 fL FT HemeAutoSS Platelet mean volume (Bld) [Entitic vol] 8.9 fL Normal 6.4 - 10.8 fL FT HemeAutoSS Platelets (Bld) [#/Vol] 190.0 E9/L Normal 150.0 - 500.0 E9/L FT [...] AM) Normal Negative [facility] UA Auto SS [place].plasma/Lithi um.RBC (Bld) [Mass ratio] 0-3 /HPF Normal [...] [facility] UA Auto SS UA Spec Desc Clean Catch (08/08/21 10:04 AM) Normal [facility] UA Auto SS Urobilinogen Qn (U) 0.0102597 {Sean'U}/dL Normal 0.0 - 1.0 EU/dL [facility] UA Auto SS WBC Auto Ql (U) Negative (08/08/21 10:04 AM) Normal Negative [facility] UA Auto SS WBC LM.HPF (Urine sed) [#/Area] 0-5 /HPF Normal 0-5/HPF [facility] UA Auto SS ANES POSTPROC EVALon 022 ANES POSTPROC EVAL HNO ID: [id number] Author: Lucy Flanagan MD Service: Anesthesiology Author Type: Anesthesiologist Type: Anesthesia Postprocedure Evaluation Filed: 07/31/2021 12:56 PM Note Text: POST ANESTHESIA EVALUATION NOTE : 1970 Procedure Summary Date: 07/31/21 Room / Location: [facility] Anesthesia Start: 1053 Anesthesia Stop: 1145 Procedure: COLONOSCOPY DIAGNOSTIC Diagnosis: Dark stools (OTHER) Scheduled Providers: Jayy Patel MD; Cori Ashley APRN.SUPERVISOR CELL ROOM; Lucy Flanagan MD Responsible Provider: Lucy Flanagan [...] July 31, 2021 TIME: 12:55 PM CSN: [id number] Normal [facility] ANES PRE-OPon 07-31-2021 ANES PRE-OP HNO ID: [id number] Author: Lucy Flanagan MD Service: Anesthesiology Author Type: Anesthesiologist Type: Anesthesia Preprocedure Evaluation Filed: 07/31/2021 9:50 AM Note Text: ANESTHESIOLOGY DAY OF SURGERY NOTE : 1970 Procedure Information Date/Time: 07/31/21 1030 Scheduled providers: Jayy Patel MD; Cori Ashley APRN.SUPERVISOR CELL ROOM; Lucy Flanagan MD Procedure: COLONOSCOPY DIAGNOSTIC Location: [facility] Estimated body mass index is 53.04 [...] July 31, 2021 TIME: 9:49 AM CSN: [id number] [facility] COLONOSCOPY DIAGNOSTICon [facility] HISTORY PHYSICALon HISTORY PHYSICAL HNO ID: [id number] Author: Jayy Patel MD Service: General Surgery [...] DATE: July 31, 2021 TIME: 10:58 AM [facility] SURGICAL PATHOLOGYon 022 CASE REPORT Normal [facility] Comment on above: Order Comment: Speci men Type: TISSUE SPECIMEN Ordering Facility: [facility] Address: [address] [place] [address] Result Comment: Surg [facility] Pathology Report Case: [id number] Authorizing Provider: Jayy Patel MD Collected: 07/31/2021 11:31 AM Ordering Location: [facility] Received: 07/31/2021 02:15 PM Pathologist: Luis F Quiroz MD Specimen: SIGMOID COLON POLYP Performed By: #### S #### [facility] CLIA [id number] [address] [place] [address] FINAL DIAGNOSIS Normal [facility] Comment on above: Order Comment: Speci men Type: TISSUE SPECIMEN Ordering Facility: [facility] Address: [address] [place] [address] Result Comment: Sigm oid colon polyp, biopsy: - Tubular adenoma. JEL 08/01/2021 Performed By: #### S #### [facility] CLIA [id number] [address] [place] [address] FINAL PERFORMING LAB Normal [facility] Comment on above: Order Comment: Speci men Type: TISSUE SPECIMEN Ordering Facility: [facility] Address: [address] [place] [address] Result Comment: Diag nostic interpretation performed at [facility], [address] [place] [address] CLIA# [id number] Auto Customize Painter: Nehal Cid M.D. Performed By: #### S #### [facility] CLIA [id number] [address] [place] [address] GROSS DESCRIPTION Normal [facility] Comment on above: Order Comment: Speci men Type: TISSUE SPECIMEN Ordering Facility: [facility] Address: [address] [place] [address] Result Comment: A. S IGMOID COLON POLYP. Received in formalin are multiple pieces of kaufman, soft tissue aggregating to 1.8 x 0.3 x 0.2 cm. Totally submitted in one cassette. SS July 31, 2021 7:11 PM Gross examination performed at [facility], [address] [place] [address] Performed By: #### S #### [facility] CLIA [id number] [place] [address] [place] CBC panel Auto (Bld)on 07-29 Erythrocyte distribution width (RBC) [Ratio] 12.5 % Normal 11.5-15.0 [facility] Comment on above: Order Comment: Speci men Type: URINE SPECIMEN Ordering Facility: [facility] Address: [address] [place] [address] Performed By: #### L [id number] #### [facility] CLIA [id number] [address] [place] [address] [place] Hematocrit (Bld) [Volume fraction] 39.4 % Normal 39.0-51.0 [facility] Comment on above: Order Comment: Speci men Type: URINE SPECIMEN Ordering Facility: [facility] Address: [address] [place] [address] Performed By: #### L [id number] #### [facility] CLIA [id number] [address] [place] [address] [place] Hemoglobin (Bld) [Mass/Vol] 13.6 g/dL Normal 13.0-17.0 [facility] Comment on above: Order Comment: Speci men Type: URINE SPECIMEN Ordering Facility: [facility] Address: [address] [place], [place] [address] Performed By: #### L [id number] #### [facility] CLIA [id number] [address] [place] [address] [place] MCH (RBC) [Entitic mass] 29.3 pg Normal 26.0-34.0 [facility] Comment on above: Order Comment: Speci men Type: URINE SPECIMEN Ordering Facility: [facility] Address: [address] [place] [address] Performed By: #### L [id number] #### [facility] CLIA [id number] [address] [place] [address] [place] [facility] MCHC (RBC) [Mass/Vol] 34.5 g/dL Normal 30.5-36.0 [facility] Comment on above: Order Comment: Speci men Type: URINE SPECIMEN Ordering Facility: [facility] Address: [address] [place] [address] Performed By: #### L [id number] #### [facility] CLIA [id number] [address] [place] [address] [place] MCV (RBC) [Entitic vol] 84.9 fL Normal 80.0-100.0 [facility] Comment on above: Order Comment: Speci men Type: URINE SPECIMEN Ordering Facility: [facility] Address: [address] [place] [address] Performed By: #### L [id number] #### [facility] CLIA [id number] [address] [place] [address] [place] Nucleated RBC (Bld) [#/Vol] 10*3/uL Normal <0.01 [facility] Comment on above: Order Comment: Speci men Type: URINE SPECIMEN Ordering Facility: [facility] Address: [address] [place] [address] Performed By: #### L [id number] #### [facility] CLIA [id number] [address] [place] [address] [place] Platelet mean volume (Bld) [Entitic vol] 9.9 fL Normal 9.0-12.7 [facility] Comment on above: Order Comment: Speci men Type: URINE SPECIMEN Ordering Facility: [facility] Address: [address] [place] [address] Performed By: #### L [id number] #### [facility] CLIA [id number] [address] [place] [address] [place] Platelets (Bld) [#/Vol] 187 10*3/uL Normal 150-400 [facility] Comment on above: Order Comment: Speci men Type: URINE SPECIMEN Ordering Facility: [facility] Address: [address] [place], [place] [address] Performed By: #### L [id number] #### C[facility]STOBAL [facility] CLIA [id number] [address] [place] [address] RBC (Bld) [#/Vol] 4.64 10*6/uL Normal 4.20-6.00 [facility] Comment on above: Order Comment: Speci men Type: URINE SPECIMEN Ordering Facility: [facility] Address: [address] [place] [address] Performed By: #### L [id number] #### [facility] CLIA [id number] [address] [place] [address] WBC (Bld) [#/Vol] 5.29 10*3/uL Normal 3.70-11.00 [facility] Comment on above: Order Comment: Speci men Type: URINE SPECIMEN Ordering Facility: [facility] Address: [address] [place] [address] Performed By: #### L [id number] #### [facility] CLIA [id number] [address] [place] [address] [facility] Comprehensive metabolic 2000 panelon 07-29-2021 Albumin [Mass/Vol] 4.6 g/dL Normal 3.9-4.9 [facility] Comment on above: Order Comment: Speci men Type: BLOOD SPECIMENOrdering Facility: [facility] Address: [address] [place], [place] [address] Performed By: #### L IPB, 54799-6 ####[facility] LABCLIA [id number] [address] ALP [Catalytic activity/Vol] 80 U/L Normal 38-113 [facility] Comment on above: Order Comment: Speci men Type: BLOOD SPECIMENOrdering Facility: [facility] Address: [address] [place], [place] [address] Performed By: #### L IPB, 49271-5 ####JADYNORALIA [facility] LABCLIA [id number] [place] [address] [place] ALT [Catalytic activity/Vol] 58 U/L High 10-54 [facility] Comment on above: Order Comment: Speci men Type: BLOOD SPECIMENOrdering Facility: [facility] Address: [address] [place] [address] Performed By: #### L KIERRAB, 84366-2 ####[facility] LABCLIA [id number] [place] [address] [place] Anion gap [Moles/Vol] 7 mmol/L Low 9-18 [facility] Comment on above: Order Comment: Speci men Type: BLOOD SPECIMENOrdering Facility: [facility] Address: [address] [place] [address] Performed By: #### L KIERRAB, 36979-4 ####[facility] LABCLIA [id number] [place] [address] [place] AST [Catalytic activity/Vol] 39 U/L Normal 14-40 [facility] Comment on above: Order Comment: Speci men Type: BLOOD SPECIMENOrdering Facility: [facility] Address: [address] [place] [address] Performed By: #### L KIERRAB, 51636-3 ####[facility] LABCLIA [id number] [place] [address] [place] Bilirubin [Mass/Vol] 0.4 mg/dL Normal 0.2-1.3 [facility] Comment on above: Order Comment: Speci men Type: BLOOD SPECIMENOrdering Facility: [facility] Address: [address] [place] [address] Performed By: #### L IPB, 72361-8 ####AMHORALIA [facility] LABCLIA [id number] [place] [address] [place] Calcium [Mass/Vol] 9.8 mg/dL Normal 8.5-10.2 [facility] Comment on above: Order Comment: Speci men Type: BLOOD SPECIMENOrdering Facility: [facility] Address: [address] Performed By: #### L IPB, 36748-5 ####[facility] LABCLIA [id number] [place] [address] [place] Chloride [Moles/Vol] 104 mmol/L Normal 97-105 [facility] Comment on above: Order Comment: Speci men Type: BLOOD SPECIMENOrdering Facility: [facility] Address: [address] [place] [address] Performed By: #### L IPB, 79048-8 ####[facility] LABCLIA [id number] [place] [address] [place] CO2 [Moles/Vol] 28 mmol/L Normal 22-30 [facility] Comment on above: Order Comment: Speci men Type: BLOOD SPECIMENOrdering Facility: [facility] Address: [address] [place] [address] Performed By: #### L IPB, 65303-6 ####[facility] LABCLIA [id number] [place] [address] [place] Creatinine [Mass/Vol] 0.98 mg/dL Normal 0.73-1.22 [facility] Comment on above: Order Comment: Speci men Type: BLOOD SPECIMENOrdering Facility: [facility] Address: [address] [place], [place] [address] Performed By: #### L IPB, 38910-1 ####AMHORALIA [facility] LABCLIA [id number] [place] [address] [place] ESTIMATED GLOMERULAR FILTRATION RATE 95 mL/min/1.73m??? Normal >=60 [facility] Comment on above: Order Comment: Speci men Type: BLOOD SPECIMENOrdering Facility: [facility] Address: [address] [place] [address] Result Comment: Halle mated Glomerular Filtration Rate [...] actual GFR. Performed By: #### L FILIPE, 32965-3 ####[facility] LABCLIA [id number] [place] [address] [place] Glucose [Mass/Vol] 120 mg/dL High 74-99 [facility] Comment on above: Order Comment: Tessa flores Type: BLOOD SPECIMENOrdering Facility: [facility] Address: [address] [place] [address] Result Comment: The [place] Diabetes Association (ADA) provides guidance for cutoff [...] Standards of Medical Care in Diabetes 2016, [place] [employer]. Diabetes Care. 2016.39(Suppl 1). Performed By: #### L FILIPE, 23820-6 ####[facility] LABIA [id number] [place] [address] [place] Potassium [Moles/Vol] 4.7 mmol/L Normal 3.7-5.1 [facility] Comment on above: Order Comment: Tessa flores Type: BLOOD SPECIMENOrdering Facility: [facility] Address: [address] [place] [address] Performed By: #### L FILIPE, 33138-2 ####[facility] LABCLIA [id number] [place] [address] [place] Protein [Mass/Vol] 7.6 g/dL Normal 6.3-8.0 [facility] Comment on above: Order Comment: Speci men Type: BLOOD SPECIMENOrdering Facility: [facility] Address: [address] [place] [address] Performed By: #### L IPB, 13379-4 ####[facility] LABCLIA [id number] [place] [address] [place] Sodium [Moles/Vol] 139 mmol/L Normal 136-144 [facility] Comment on above: Order Comment: Speci men Type: BLOOD SPECIMENOrdering Facility: [facility] Address: [address] [place] [address] Performed By: #### L IPB, 06074-3 ####[facility] LABCLIA [id number] [place] [address] [place] Urea nitrogen [Mass/Vol] 18 mg/dL Normal 9-24 [facility] Comment on above: Order Comment: Speci men Type: BLOOD SPECIMENOrdering Facility: [facility] Address: [address] [place] [address] Performed By: #### L IPB, 51796-8 ####[facility] LABIA [id number] [place] [address] [place] HGB A1Con 07-29-2021 Average glucose Estimated from glycated hemoglobin (Bld) [Mass/Vol] 117 mg/dL Normal [facility] Comment on above: Order Comment: Speci men Type: BLOOD SPECIMENOrdering Facility: [facility] Address: [address] [place] [address] Result Comment: eAG: (Estimated average glucose) is a calculated value from HgbA1c and is advertising representative of the average blood glucose level in the last 2-3 month period. Performed By: #### H BA1C ####[facility] LABCLIA [id number] [place] [address] [place] HbA1c (Bld) [Mass fraction] 5.7 % High 4.3-5.6 [facility] Comment on above: Order Comment: Speci men Type: BLOOD SPECIMENOrdering Facility: [facility] Address: [address] [place] [address] Result Comment: [place] Diabetes Association guidelines indicate that patients with HgbA1c in the range 5.7-6.4% are at increased risk for development of diabetes, and intervention by lifestyle modification may be beneficial. HgbA1c greater or equal to 6.5% is considered diagnostic of diabetes. Performed By: #### H BA1C ####AMHKHRIST [facility] LABCLIA [id number] [address] OF [facility] LIPID PANEL BASICon 07-30-19 22 Cholesterol [Mass/Vol] 240 mg/dL High <200 [facility] Comment on above: Order Comment: Tessa men Type: BLOOD SPECIMENOrdering Facility: [facility] Address: [address] [place] [address] Result Comment: <200 mg/dL, Desirable 200-239 mg/dL, Borderline high >239 mg/dL, High Performed By: #### L IPB, 34555-4 ####JADYNERST [facility] LABCLIA [id number] [address] [facility] Cholesterol in HDL [Mass/Vol] 37 mg/dL Low >39 [facility] Comment on above: Order Comment: Tessa sandra Type: BLOOD SPECIMENOrdering Facility: [facility] Address: [address] [place] [address] Result Comment: 40-5 9 mg/dL, Acceptable >59 mg/dL, High: Negative risk factor for coronary heart disease <40 mg/dL, Low: Positive risk factor for coronary heart disease Performed By: #### L IPB, 83219-6 ####AMHERST [facility] LABCLIA [id number] [address] [facility] Cholesterol in LDL [Mass/Vol] 175 mg/dL High <100 [facility] Comment on above: Order Comment: Selmai sandra Type: BLOOD SPECIMENOrdering Facility: [facility] Address: [address] [place] [address] Result Comment: <100 mg/dL, Optimal 100-129 mg/dL, Near optimal/above optimal 130-159 mg/dL, Borderline high 160-189 mg/dL, High >189 mg/dL, Very high Secondary prevention optimal LDL Cholesterol levels are recommended to be < 70 mg/dL Performed By: #### L IPB, 04074-9 ####[facility] LABCLIA [id number] [place] [address] [facility] Cholesterol in LDL/Cholesterol in HDL [Mass ratio] 4.73 {ratio} High <2.54 [facility] Comment on above: Order Comment: Tessa flores Type: BLOOD SPECIMENOrdering Facility: [facility] Address: [address] [place] [address] Result Comment: Refe rence: 1. National Cholesterol Education Program ATP III Guideline At-A-Glance Quick Desk Reference: National Heart, Lung, and Blood [place]. National Institutes of Health. 2001: NIH Publication No. 01-3305. 2. An International Atherosclerosis Society position paper: global recommendations for the management of dyslipidemia: executive summary, Atherosclerosis. 2014: 232(2):410-413. Performed By: #### L KIERRAB, 03252-4 ####[facility] LABCLIA [id number] [address] STATES [facility] Cholesterol in VLDL [Mass/Vol] 28 mg/dL Normal <30 [facility] Comment on above: Order Comment: Tessa flores Type: BLOOD SPECIMENOrdering Facility: [facility] Address: [address] [place] [address] Performed By: #### L IPB, 74399-1 ####[facility] LABCLIA [id number] [place] [id number] [place] Cholesterol non HDL [Mass/Vol] 203 mg/dL High <130 [facility] Comment on above: Order Comment: Tessa flores Type: BLOOD SPECIMENOrdering Facility: [facility] Address: [address] [place] [address] Result Comment: <130 mg/dL, Optimal 130-159 mg/dL, Near optimal/above optimal 160-189 mg/dL, Borderline high 190-219 mg/dL, High >219 mg/dL, Very high Secondary prevention optimal non HDL Cholesterol levels are recommended to be <100 mg/dL Performed By: #### Natalie DENT, 62369-5 ####[facility] LABCLIA [id number] [address] Cholesterol.total/Ch olesterol in HDL [Mass ratio] 6.49 {ratio} High <5.10 [facility] Comment on above: Order Comment: Speci men Type: BLOOD SPECIMENOrdering Facility: [facility] Address: [address] [place] [address] Performed By: #### Natalie DENT, 91247-0 ####[facility] LABCLIA [id number] [address] FASTING TIME 12. hrs Normal [facility] Comment on above: Order Comment: Speci men Type: BLOOD SPECIMENOrdering Facility: [facility] Address: [address] [place] [address] Performed By: #### Natalie DENT, 93998-3 ####[facility] LABIA [id number] [address] Triglyceride [Mass/Vol] 140 mg/dL Normal <150 [facility] Comment on above: Order Comment: Speci men Type: BLOOD SPECIMENOrdering Facility: [facility] Address: [address] [place] [address] Result Comment: <150 mg/dL, Normal 150-199 mg/dL, Borderline high 200-499 mg/dL, High >499 mg/dL, Very high Performed By: #### Natalie DENT, 10557-0 ####CRISTOBAL [facility] LABCLIA [id number] [address] [place] PSA/PROSTSPECAG SCRNon 07-29 Prostate specific Ag [Mass/Vol] 0.41 ng/mL Normal <2.60 [facility] Comment on above: Order Comment: Speci men Type: BLOOD SPECIMENOrdering Facility: [facility] Address: [address] [place], [place] [id number] Result Comment: Tota l PSA test methodology used is the Electrochemiluminescence Immunoassay by [employer]. Total PSA values by differing methodologies cannot be interchanged. Performed By: #### P SAS1 ####[facility] LABCLIA [id number] [place] [address] [place] TSH SerPl-aCncon 07-29-2021 TSH Qn 4.060 m[IU]/L Normal 0.270-4.200 [facility] Comment on above: Order Comment: Speci men Type: BLOOD SPECIMENOrdering Facility: [facility] Address: [address] [place] [address] Performed By: #### 3 016-3 ####[facility] LABCLIA [id number] [place] [address] [place] URINALYSIS, REFLEX MICROSCOP ICon 07-29-2021 Bilirubin Ql (U) Negative Normal Negative [facility] Comment on above: Order Comment: Speci men Type: URINE SPECIMEN Ordering Facility: [facility] Address: [address] [place] [address] Performed By: #### L [id number] #### [facility] LAB CLIA [id number] [address] [place] [address] [place] Clarity (Unsp spec) Clear Normal Clear [facility] Comment on above: Order Comment: Speci men Type: URINE SPECIMEN Ordering Facility: [facility] Address: [address] [place], [place] [id number] Performed By: #### L [id number] #### [facility] LAB CLIA [id number] [address] [place] [address] [place] Color (U) Yellow Normal Yellow [facility] Comment on above: Order Comment: Speci men Type: URINE SPECIMEN [facility]ing [facility] Address: [address] [place], [place] [id number] Performed By: #### L [id number] #### [facility] LAB CLIA [id number] [address] [place] [id number] [place] [address] [place] Glucose Test strip (U) [Mass/Vol] Negative Normal Negative [facility] Comment on above: Order Comment: Speci men Type: URINE SPECIMEN Ordering Facility: [facility] Address: [address] [place] [address] Performed By: #### L [id number] #### [facility] LAB CLIA [id number] [address] [place] [id number] [place] [address] [place] Hemoglobin Ql (U) Negative Normal Negative [facility] Comment on above: Order Comment: Speci men Type: URINE SPECIMEN Ordering Facility[facility] Address: [address] [place] [address] Performed By: #### L [id number] #### [facility] LAB CLIA [id number] [address] [place] [address] [place] [facility] Ketones Ql (U) Negative Normal Negative [facility] Comment on above: Order Comment: Speci men Type: URINE SPECIMEN Ordering [facility] Address: [address] [place] [address] Performed By: #### L [id number] #### [facility] LAB CLIA [id number] [address] [place] [address] Leukocyte esterase Test strip Ql (U) Negative Normal Negative [facility] Comment on above: Order Comment: Speci men Type: URINE SPECIMEN Ordering [facility] Address: [address] [place] [address] Performed By: #### L [id number] #### [facility] LAB CLIA [id number] [address] [place] [address] [place] Nitrite Ql (U) Negative Normal Negative [facility] Comment on above: Order Comment: Speci men Type: URINE SPECIMEN [facility]ing [facility] Address: [address] [place] [address] Performed By: #### L [id number] #### [facility] LAB CLIA [id number] [address] [place] [address] [place] pH (U) 5.5 [pH] Normal 5.0-8.0 [facility] Comment on above: Order Comment: Speci men Type: URINE SPECIMEN Ordering [facility]: [facility] Address: [address] [place] [address] Performed By: #### L [id number] #### [facility] LAB CLIA [id number] [address] [place] [address] [place] Protein (U) [Mass/Vol] Negative Normal Negative [facility] Comment on above: Order Comment: Speci men Type: URINE SPECIMEN Ordering [facility] Address: [address] [place] [address] Performed By: #### L [id number] #### [facility] LAB CLIA [id number] [address] [place] [address] Specific gravity (U) [Rel density] 1.025 Normal 1.005-1.030 [facility] Comment on above: Order Comment: Speci men Type: URINE SPECIMEN [facility]ing [facility] Address: [address] [place] [address] Performed By: #### L [id number] #### [facility] LAB CLIA [id number] [address] [place] [address] [place] Urobilinogen Ql (U) 0.2 EU/dL Normal 0.2-1.0 EU/dL [facility] Comment on above: Order Comment: Speci men Type: URINE SPECIMEN [facility]ing [facility]: [facility] Address: [address] [place] [address] Performed By: #### L [id number] #### [facility] LAB CLIA [id number] [address] [place], [place] [id number] [place] VITAMIN D 25 HYDROXYon 07-29 25-hydroxyvitamin D3 [Mass/Vol] 29.1 ng/mL Low 31.0-80.0 [facility] Comment on above: Order Comment: Speci men Type: BLOOD SPECIMENOrdering Facility: [facility] Address: [address] [place] [phone] Result Comment: Clas sification of 25 [place] Vitamin D status: Deficiency/Insufficiency: < or = 30 ng/ml. Sufficiency/Optimal Levels: 31-80 ng/mL Toxicity: > 100 ng/mL. Test performed by chemiluminescent immunoassay. Performed By: #### V ITD ####[facility] LABCLIA [id number] [facility] [address] [id number] [address] [place] HISTORY PHYSICALon HISTORY PHYSICAL HNO ID: [id number] Author: Prisca Van PA-C Service: ? Author Type: Physician Operations Examiner Type: HANDP Filed: 07/26/2021 1:52 PM Note Text: PREANESTHESIA CONSULT CLINIC This is a virtual visit. It required patient-provider interaction for the medical decision making as documented below. Patient has been identified by name and date of : Yes Reason for call: PACC visit Accompanied by: Self Patient name: Nehal Baig Scheduled Surgery: colonoscopy 07/31/2021 at [place] CHIEF COMPLAINT: Patient presents with: Outpatient Colonoscopy [...] fevers. Neuro: No history of TIA's, stroke, [employer] tumor, impaired sensorium, hemiplegia, paraplegia or quadraplegia. No neurological symptoms or problems. Respiratory: No history of current cough or dyspnea, or pneumonia in the past 6 weeks. +asthma-uses Flovent daily, albuterol 3-5 times/week +JACOBY- BiPAP nightly +lung nodules Cardiovascular: No history of angina, CHF, [place], cardiac surgery or stents. Denies rest pain, [...] carotid puls (more content not included)... Normal [facility] CNOVon 07-25-2021 CNOV Office Visit ([facility] ) -- NEHAL BAIG ([id number]) 1970 M Date Time Provider Department 07/25/21 9:20 AM SALOME AGUILLON [facility] During your visit today, we recorded [...] further at follow-up Salome Aguillon APRN.LEODAN Aguillon APRN.LEODAN 07/25/2021 9:43 AM Signed Bowel Preparation Instructions for: Golytely, Nulytely, Trilyte or Coly (more content not included)... Normal [facility] CNPNon 07-25-2021 LEODANN Telephone ([facility]) -- NEHAL BAIG ([id number]) 1970 M Date Time Provider Department 07/25/[facility] visit today, we recorded the following information about you: Beatriz Cowan 07/25/2021 11:22 AM Signed [facility] states the Golytely is on backorder. They have the Newlytely in stock. Is it OK to substitute? Please advise. [phone]. Beatriz Cowan July 25, 2021 11:22 AM Salome Aguillon APRN.CNP 07/25/2021 12:05 PM Signed Called [facility] -pt did not schedule colonoscopy [...] Date Reviewed: 07/25/2021 Reviewed by: Salome Aguillon APRN.HAND FLESHER - Fully Assessed Reason for Visit: Medication [...] Status:Closed by SALOME AGUILLON on 07/25/21 Normal [facility] CT CHEST WO IVCONon 15-20 21 Radiology Result ACTIONABLE Abnormal [facility] Basic Metab w/rfx MGon 08-02 (cont.) Normal [facility] Comment on above: Result Comment: Aver age GFR for 40-49 years old: 99 mL/min/1.73sq m Chronic Kidney Disease: <60 mL/min/1.73sq m Kidney failure: <15 mL/min/1.73sq m eGFR calculated using average adult body mass. Additional eGFR calculator available at: http://www.Crew.Panoratio/multiple_crcl_2011.htm Performed By: #### C BC, BMPX ####[address] [address] Lab Director: Nate Stafford MD Anion gap [Moles/Vol] 11 mmol/L Normal 9-17 [facility] Comment on above: Performed By: #### C BC, BMPX ####[facility] [address] [place], [place] [phone] Director: Nate Stafford MD Calcium [Mass/Vol] 8.5 mg/dL Low 8.6-10.4 [facility] Comment on above: Performed By: #### C BC, BMPX ####[facility] V[address] [place], [place] [phone] Director: Nate Stafford MD Chloride [Moles/Vol] 101 mmol/L Normal 98-107 [facility] Comment on above: Performed By: #### C BC, BMPX ####[facility] [address] [place] [address] [phone] Director: Nate Stafford MD CO2 [Moles/Vol] 23 mmol/L Normal 20-31 [facility] Comment on above: Performed By: #### C BC, BMPX ####[facility] [address] [place], [place] [phone] Director: Nate Stafford MD Creatinine [Mass/Vol] 0.62 mg/dL Low 0.70-1.20 [facility] Comment on above: Performed By: #### C BC, BMPX ####[facility] Vx[address] [place], [place] [phone] Director: Nate Stafford MD GFR, Amer >60 Normal >60 [facility] Comment on above: Performed By: #### C BC, BMPX ####[facility] [address] [place], [place] [phone] Director: Nate Stafford MD GFR,non Amer >60 Normal >60 [facility] Comment on above: Performed By: #### C BC, BMPX ####[facility] [address] [place], [place] [phone] Director: Nate Stafford MD Glucose [Mass/Vol] 120 mg/dL High 70-99 [facility] Comment on above: Performed By: #### C BC, BMPX ####[facility] [address]qfrl[address]unel[address]1924 [place], [place] [phone] Director: Nate Stafford MD Potassium [Moles/Vol] 4.3 mmol/L Normal 3.7-5.3 [facility] Comment on above: Performed By: #### C BC, BMPX ####[facility] [address]ft[address] [place], [place] [phone] Director: Nate Stafford MD Sodium [Moles/Vol] 135 mmol/L Normal 135-144 [facility] Comment on above: Performed By: #### C BC, BMPX ####[facility] [address] [place], [place] [phone] Director: Nate Stafford MD Urea nitrogen [Mass/Vol] 14 mg/dL Normal 6-20 [facility] Comment on above: Performed By: #### C BC, BMPX ####[facility] [address] [place], [place] [phone] Director: Nate Stafford MD BUN/CRE Ratio NOT REPORTED Normal 9-20 [facility] Comment on above: Performed By: #### C BC, BMPX ####[facility] Rec[address]mlcbm59[address] [place], [place] [phone] Director: Nate Stafford MD Staging: NOT REPORTED Normal [facility] Comment on above: Performed By: #### C BC, BMPX ####[facility] [address] [place], [place] [phone] Director: Nate Stafford MD Basic Metabolic Panel w/ Ref johnny to MGOrdered By: Halina Pathak on 08-02-2020 Anion gap [Moles/Vol] 11 mmol/L 9 - 17 mmol/L [employer] Phone: Calcium [Mass/Vol] 8.5 mg/dL Low 8.6 - 10. 4 mg/dL [employer] Phone: Chloride [Moles/Vol] 101 mmol/L 98 - 10 7 mmol/L [employer] Phone: CO2 [Moles/Vol] 23 mmol/L 20 - 31 mmol/L [employer] Phone: Creatinine [Mass/Vol] 0.62 mg/dL Low 0.70 - 1.20 mg/dL [employer] Phone: GFR >60 >60 mL/min unrival Phone: GFR Non- >60 >60 mL/min [employer] Phone: GFR/1.73 sq M.predicted MDRD (S/P/Bld) [Vol rate/Area] [employer] Phone: Comment on above: Average GFR for 40-4 9 years old: 99 mL/min/1.73sq m Chronic Kidney Disease: <60 mL/min/1.73sq m Kidney failure: <15 mL/min/1.73sq m eGFR calculated using average adult body mass. Additional eGFR calculator available at: http://www.Crew.Panoratio/multiple_crcl_2012.htm GFR/1.73 sq M.predicted MDRD (S/P/Bld) [Vol rate/Area] NOT REPORTED [employer] Phone: Glucose [Mass/Vol] 120 mg/dL High 70 - 99 mg/dL [employer] Phone: Interpretation and review of laboratory results Abnormal [employer] Phone: Potassium [Moles/Vol] 4.3 mmol/L 3.7 - 5.3 mmol/L [employer] Phone: Sodium [Moles/Vol] 135 mmol/L 135 - 144 mmol/L [employer] Phone: Urea nitrogen (BldV) [Mass/Vol] 14 mg/dL 6 - 20 mg/dL [employer] Phone: Urea nitrogen/Creatinine (Bld) [Mass ratio] NOT REPORTED [employer] Phone: CBCon 08-02-2020 Erythrocyte distribution width (RBC) [Ratio] 13.0 % Normal 11.8-14.4 [facility] Comment on above: Performed By: #### C BC, BMPX ####[facility] [address]ff[address] [place] [address] Lab Director: Nate Stafford MD Hematocrit (Bld) [Volume fraction] 41.8 % Normal 40.7-50.3 [facility] Comment on above: Performed By: #### C BC, BMPX ####[facility] [address] [place] [address] Lab Director: Nate Stafford MD Hemoglobin (Bld) [Mass/Vol] 13.8 g/dL Normal 13.0-17.0 [facility] Comment on above: Performed By: #### C BC, BMPX ####[facility] F[address]gsvhv48[address] [place] [address] Lab Director: Nate Stafford MD MCH (RBC) [Entitic mass] 29.3 pg Normal 25.2-33.5 [facility] Comment on above: Performed By: #### C BC, BMPX ####[facility] [address] [place] [address] Lab Director: Nate Stafford MD MCHC (RBC) [Mass/Vol] 33.0 g/dL Normal 28.4-34.8 [facility] Comment on above: Performed By: #### C BC, BMPX ####[facility] [address] [place], [place] [phone] Director: Nate Stafford MD MCV (RBC) [Entitic vol] 88.7 fL Normal 82.6-102.9 [facility] Comment on above: Performed By: #### C BC, BMPX ####[facility] [address] [place], [place] [phone] Director: Nate Stafford MD NRBC Automated 0.0 per 100 WBC Normal 0.0 [facility] Comment on above: Performed By: #### C BC, BMPX ####[address] [phone] Director: Nate Stafford MD Platelet mean volume (Bld) [Entitic vol] 10.9 fL Normal 8.1-13.5 [facility] Comment on above: Performed By: #### C BC, BMPX ####[address] [phone] Director: Nate Stafford MD Platelets (Bld) [#/Vol] 221 10*3/uL Normal 138-453 [facility] Comment on above: Performed By: #### C BC, BMPX ####[address] [address] Lab Director: Nate tSafford MD RBC (Bld) [#/Vol] 4.71 10*6/uL Normal 4.21-5.77 [facility] Comment on above: Performed By: #### C BC, BMPX ####[facility] [address] [place] [address] Lab Director: Nate Stafford MD WBC (Bld) [#/Vol] 10.6 10*3/uL Normal 3.5-11.3 [facility] Comment on above: Performed By: #### C BC, BMPX ####[address] [address] Lab Director: Nate Stafford MD CBCOrdered By: Halina Pathak on 08-02-2020 Hematocrit (Bld) [Volume fraction] 41.8 % 40.7 - 50.3 % [employer] Phone: Hemoglobin.gastroint estinal spec 1 Ql (Stl) 13.8 g/dL 13.0 - 17.0 g/dL [employer] Phone: MCH (RBC) [Entitic mass] 29.3 pg 25.2 - 33.5 pg [employer] Phone: MCHC (RBC) [Mass/Vol] 33.0 g/dL 28.4 - 34.8 g/dL [employer] Phone: MCV (RBC) [Entitic vol] 88.7 fL 82.6 - 102.9 fL [employer] Phone: NRBC Automated 0.0 0.0 per 100 WBC [employer] Phone: Platelet distribution width (Bld) [Ratio] 13.0 % 11.8 - 14.4 % [employer] Phone: Platelet mean volume (Bld) [Entitic vol] 10.9 fL 8.1 - 13.5 fL [employer] Phone: Platelets (Bld) [#/Vol] 221 10*3/uL [employer] Phone: RBC (Bld) [#/Vol] 4.71 10*6/uL 4.21 - 5.7 7 m/uL [employer] Phone: WBC (Bld) [#/Vol] 10.6 10*3/uL [employer] Phone: Trauma Profileon 08-02-2020 (cont.) Normal [facility] Comment on above: Result Comment: Aver age GFR for 40-49 years old: 99 mL/min/1.73sq m Chronic Kidney Disease: <60 mL/min/1.73sq m Kidney failure: <15 mL/min/1.73sq m eGFR calculated using average adult body mass. Additional eGFR calculator available at: http://www.Crew.Panoratio/multiple_crcl_2012.htm Performed By: #### E RTPAlanna, TROPI ####[facility] [address] [place], [place] [phone] Director: Nate Stafford MD Anion gap [Moles/Vol] 10 mmol/L Normal 9-17 [facility] Comment on above: Performed By: #### E RTPF, TROPI ####[facility] [address] [place], [place] [phone] Director: Nate Stafford MD Chloride [Moles/Vol] 100 mmol/L Normal 98-107 [facility] Comment on above: Performed By: #### E RTPF, TROPI ####[facility] [address] [place], [place] [phone] Director: Nate Stafford MD CO2 [Moles/Vol] 24 mmol/L Normal 20-31 [facility] Comment on above: Performed By: #### E RTPF, TROPI ####[facility] Y[address]ert[address]32 [place], [place] [phone] Director: Nate Stafford MD Creatinine [Mass/Vol] 0.71 mg/dL Normal 0.70-1.20 [facility] Comment on above: Performed By: #### E RTPF, TROPI ####[facility] [address] [place], [place] [phone] Director: Nate Stafford MD Ethanol [Mass/Vol] mg/dL Normal <10 [facility] Comment on above: Performed By: #### E RTPF, TROPI ####[facility] [address]mf[address]uz[address] [place], [place] [phone] Director: Nate Stafford MD Ethanol percent <0.010 Normal <0.010 [facility] Comment on above: Performed By: #### E RTPF, TROPI ####[facility] [address]cek[address] [place] [address] Lab Director: Nate Stafford MD GFR, Amer >60 Normal >60 [facility] Comment on above: Performed By: #### E RTPF, TROPI ####[facility] [address]yt[address] [place] [address] Lab Director: Nate Stafford MD GFR,non Amer >60 Normal >60 [facility] Comment on above: Performed By: #### E RTPF, TROPI ####[facility] [address] [place] [address] Lab Director: Nate Stafford MD Glucose [Mass/Vol] 109 mg/dL High 70-99 [facility] Comment on above: Performed By: #### E RTPF, TROPI ####[facility] [address]vej[address] [place] [address] Lab Director: Nate Stafford MD Potassium [Moles/Vol] 4.2 mmol/L Normal 3.7-5.3 [facility] Comment on above: Performed By: #### E RTPF, TROPI ####[facility] [address] [place] [address] Lab Director: Nate Stafford MD Sodium [Moles/Vol] 134 mmol/L Low 135-144 [facility] Comment on above: Performed By: #### E RTPF, TROPI ####[facility] [address] [place] [address] Lab Director: Nate Stafford MD Urea nitrogen [Mass/Vol] 15 mg/dL Normal 6-20 [facility] Comment on above: Performed By: #### E RTPF, TROPI ####[facility] [address] [place] [address] lab Director: Nate Stafford MD Troponinon 08-02-2020 Troponin, High Sens 6 ng/L Normal 0-22 [facility] Comment on above: Result Comment: High Sensitivity Troponin values cannot be compared with other Troponin methodologies. Patients with high levels of Biotin oral intake (i.e >5mg/day) may have falsely decreased Troponin levels. Samples collected within 8 hours of biotin intake may require additional information for diagnosis. Performed By: #### E RTPF, TROPI ####[facility] [address] [place] [address] lab Director: Nate Stafford MD Type + Screenon 08-02-2020 Type + Screen Sample Expiration 08/04/2020,2359 Arm Band Number BE [id number] ABO/Rh(D) A NEGATIVE Antibody Screen NEGATIVE Normal [facility] Comment on above: Performed By: #### T YS ####[facility] [address] [place] [address] lab Director: Nate Stafford MD CT CERVICAL [...] Johnny Smalls MD 08/01/20 Final result Normal [facility] CT CERVICAL SPINE WO CONTRAS TOrdered By: Ronnie Lund on 08-01-2020 C6-7 cervical spondy losis and degenerative disc disease. Evidence of paracervical spasm. No acute bony abnormalities are noted [employer] Phone: EXAMINATION: CT OF T HE CERVICAL [...] intact. The visualized lung apices are clear. [employer] Phone: [place], Mhpn Incoming R adiant Results From [employer] - 08/01/2020 7:04 PM EDT EXAMINATION: CT [...] spasm. No acute bony abnormalities are noted [employer] Phone: CT CHEST ABDOMEN PELVIS W CO [...] Elizabeth Shoemaker MD 08/01/20 Final result Normal [facility] CT CHEST ABDOMEN PELVIS W CO [...] to Lung-RADS guidelines. Reference: Radiology. 2017; 284(1):228-43. [employer] Phone: EXAMINATION: CT OF T HE [...] hernia. Bones/Soft Tissues: No acute osseous abnormality. [employer] Work Phone: [place], [employer] Incoming R adiant Results From [employer] - 08/01/2020 7:19 PM EDT EXAMINATION: CT [...] to Lung-RADS guidelines. Reference: Radiology. 2017; 284(1):228-43. [employer] Phone: CT HEAD WO CONTRASTon 2020 CT [...] Jarek Fernández MD 08/01/20 Final result Normal [facility] CT Head WO ContrastOrdered B y: Ronnie Lund on 08-01-2020 1. No acute intracra nial abnormality. [employer] Phone: EXAMINATION: CT OF T HE HEAD [...] clear. SOFT TISSUES/SKULL: The calvarium is intact. [employer] Phone: [place], [employer] Incoming R adiant Results From [employer] - 08/01/2020 7:01 PM EDT EXAMINATION: CT [...] intact. IMPRESSION: 1. No acute intracranial abnormality. [employer] Phone: CT LUMBAR SPINE TRAUMA RECON STRUCTIONon [...] Johnny Smalls MD 08/01/20 Final result Normal [facility] CT THORACIC SPINE TRAUMA REC ONSTRUCTIONon [...] Johnny Smalls MD 08/01/20 Final result Normal [facility] Drug Scr, Abuse, Uron 2020 Amphetamine(s),Ur Negative Normal NEG [facility] Comment on above: Result Comment: (Positive cutoff 1000 ng/mL) Performed By: #### U AMIC, LOUIS #### [facility] [address] [place] [address] Patent Solicitor: Nate Stafford MD Barbiturate(s),Ur Negative Normal NEG [facility] Comment on above: Result Comment: (Positive cutoff 200 ng/mL) Performed By: #### U AMIC, L[place]IS #### [facility] [address] [place] [address] Patent Solicitor: Nate Stafford MD Benzodiazepine(s) Negative Normal NEG [facility] Comment on above: Result Comment: (Positive cutoff 200 ng/mL) Performed By: #### U AMIC, LOUIS #### [facility] [address] [place] [address] Patent Solicitor: Nate Stafford MD Cannabinoid(s),Ur Negative Normal NEG [facility] Comment on above: Result Comment: (Positive cutoff 50 ng/mL) Performed By: #### U AMIC, LOUIS #### [facility] [address] [place] [id number] Patent Solicitor: Nate Stafford MD Cocaine Metabolite Negative [facility] Comment on above: Result Comment: (Positive cutoff 300 ng/mL) Performed By: #### U AMIC, [place] #### [facility] [address] [place] [address] Patent Solicitor: Nate Stafford MD Interpretive Info Assay provides medic al screening only. The absence of expected drug(s) and/or Normal [facility] Comment on above: Result Comment: meta bolite(s) may indicate diluted or adulterated urine, limitations of testing or timing of collection. Testing for legal purposes should be confirmed by another method. To request confirmation of test result, please call the lab within 7 days of sample submission. Performed By: #### U AMIC, LOUIS #### [facility] [address] [place] [address] Patent Solicitor: Nate Stafford MD Methadone Ql (U) Negative Normal NEG [facility] Comment on above: Result Comment: (Positive cutoff 300 ng/mL) Performed By: #### U AMIC, L[place]IS #### [facility] [address] [place] [address] Patent Solicitor: Nate Stafford MD Opiate(s), Ur Negative Normal NEG [facility] Comment on above: Result Comment: (Positive cutoff 300 ng/mL) Performed By: #### U AMIC, LOUIS #### [facility] [address] [place] [address] Patent Solicitor: Nate Stafford MD Oxycodone, Urine Negative Normal NEG [facility] Comment on above: Result Comment: (Positive cutoff 100 ng/mL) Performed By: #### U AMIC, L[place]IS #### [facility] [address] [place] [address] Patent Solicitor: Nate Stafford MD Phencyclidine, Ur Negative Normal NEG [facility] Comment on above: Result Comment: (Positive cutoff 25 ng/mL) Performed By: #### U AMIC, L[place]IS #### [facility] [address] [place] [address] Patent Solicitor: Nate Stafford MD Buprenorphrine, Ur NOT REPORTED Normal NEG [facility] Comment on above: Performed By: #### U AMIC, L[place]IS #### [facility] [address] [place] [address] Patent Solicitor: Nate Stafford MD MDMA, Urine NOT REPORTED Normal NEG [facility] Comment on above: Performed By: #### U AMIC, L[place]IS #### [facility] [address] [place] [address] Patent Solicitor: Nate Stafford MD Methamphetamine, Ur NOT REPORTED Normal NEG [facility] Comment on above: Performed By: #### U AMIC, L[place] #### [facility] [address] [place] [address] Patent Solicitor: Nate Stafford MD Propoxyphene,Urine NOT REPORTED Normal NEG [facility] Comment on above: Performed By: #### U AMIC, L[place]IS #### [address] [place], [place] [id number] Patent Solicitor: Nate Stafford MD Tricyclic antidepressants Screen Ql (U) NOT REPORTED Normal NEG [facility] Comment on above: Performed By: #### U AMIC, L[place]IS #### [address] [place], [place] [phone] Patent Solicitor: Nate Stafford MD No Panel InformationOrdered By: [...] to body habitus but requires clinical correlation. [employer] Phone: EXAMINATION: TWO XRA Y VIEWS OF [...] may relate to swelling or body habitus. [employer] Phone: [place], Mhpn Incoming R adiant Results From [employer] - 08/01/2020 9:41 PM EDT EXAMINATION: TWO [...] to body habitus but requires clinical correlation. [employer] Phone: No Panel InformationOrdered By: Ronnie Lund on 08-01-2020 Degenerative disc di sease at L5-S1. No acute bony abnormalities are seen in the thoracic or lumbar spine [employer] Phone: EXAMINATION: CT OF T HE LUMBAR [...] SOFT TISSUES/RETROPERITONEUM: No paraspinal mass is seen. [employer] Phone: [place], Mhpn Incoming R adiant Results From [employer] - 08/01/2020 7:11 PM EDT EXAMINATION: CT [...] seen in the thoracic or lumbar spine [employer] Phone: TRAUMA PANELOrdered By: Carlos Pathak on 08-01-2020 [facility] Test Unable to perform te sting: No specimen received. [employer] Phone: Anion gap [Moles/Vol] 10 mmol/L 9 - 17 mmol/L [employer] Phone: aPTT Coag (Bld) [Time] 23.3 s [employer] Phone: Comment on above: IV Heparin Therapy Range: 48.6-77.8 Blood Bank Specimen BILL FOR SERVICES PERFORMED [employer] Phone: Carboxyhemoglobin Unable to perform te sting: No specimen received. % [employer] Work Phone: Chloride [Moles/Vol] 100 mmol/L 98 - 10 7 mmol/L [employer] Phone: CO2 [Moles/Vol] 24 mmol/L 20 - 31 mmol/L [employer] Phone: Creatinine [Mass/Vol] 0.71 mg/dL 0.70 - 1.20 mg/dL [employer] Phone: Ethanol [Mass/Vol] mg/dL <10 mg/dL [employer] Phone: Ethanol percent <0.010 <0.010 % [employer] Work Phone: FIO2 Unable to perform te sting: No specimen received. [employer] Phone: GFR >60 >60 mL/min unrival Phone: GFR Non- >60 >60 mL/min [employer] Phone: GFR/1.73 sq M.predicted MDRD (S/P/Bld) [Vol rate/Area] [employer] Phone: Comment on above: Average GFR for 40-4 9 years old: 99 mL/min/1.73sq m Chronic Kidney Disease: <60 mL/min/1.73sq m Kidney failure: <15 mL/min/1.73sq m eGFR calculated using average adult body mass. Additional eGFR calculator available at: http://www.[employer]aw/multiple_crcl_2012.htm GFR/1.73 sq M.predicted MDRD (S/P/Bld) [Vol rate/Area] NOT REPORTED [employer] Work Phone: Glucose [Mass/Vol] 109 mg/dL High 70 - 99 mg/dL [employer] Phone: hCG Qual PATIENT IS MALE NEGATIVE [facility] Work Phone: HCO3, Venous Unable to perform te sting: No specimen received. 24.0 - 30.0 mmol/L [employer] Phone: Hematocrit (Bld) [Volume fraction] 42.3 % 40.7 - 50.3 % [employer] Phone: Hemoglobin.gastroint estinal spec 1 Ql (Stl) 14.2 g/dL 13.0 - 17.0 g/dL [employer] Phone: INR Coag (Bld) [Relative time] 1.0 {INR} [employer] Phone: Comment on above: Therapeutic Range: Moderate Anticoagulant Intensity: INR = 2.0-3.0 High Anticoagulant Intensity: INR = 2.5-3.5 Interpretation and review of laboratory results Abnormal [employer] Phone: MCH (RBC) [Entitic mass] 29.3 pg 25.2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 Relationship Specialty Start Date End Date [facility] Salome, EXHAUST MACHINE OPERATOR.HAND FLESHER [address] [place] [address] PCP - General Family Medicine 11/23/19 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 Relationship Specialty Start Date End Date [facility] Salome, EXHAUST MACHINE OPERATOR.HAND FLESHER [address] [place] [address] PCP - General Family Medicine 11/23/19 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 Relationship Specialty Start Date End Date [facility] Salome, EXHAUST MACHINE OPERATOR.HAND FLESHER [address] [place] [address] PCP - General Family Medicine 11/23/19 Team Status: Active Member Role Status Dates Vonnie Guerrero [employer]ANCE [employer]-C Primary Care Provider Active Team Status: Inactive Member Role Status Dates Vonnie Guerrero [employer]ANCE [employer]-C Primary Care Provider Active Siri Quezada [employer]-C Attending Provider Active Team Status: Inactive Member Role Status Dates Salome Aguillon , INSURANCE DEFENSE [employer]GAL-C Primary Care Provider Mis Yi INS[employer]ANCE [employer]-C Attending Provider Active Team Status: Inactive Member Role Status Dates Salome Aguillon INSURANCE [employer]ENSE [employer]-C Primary Care Provider Mis Quezada NP-C Attending Provider Active Team Status: Inactive Member Role Status Dates Huan Cowan DO Attending Provider Active Team Status: Active Member Role Status Dates Vonnie Guerrero , ISABELLE-C Primary Care Provider Active Siri Quezada NP-Krissy Attending Provider Active Goals (unrecognized section and [...] BE BASED ON THE PRIMARY CLINICAL RECORDS. [facility] [employer], [facility]. provides no warranty or guarantee of the accuracy or completeness of information in this document.
[2023-07-06 11:44] LABS: INR 2.28; Prothrombin Time 23.1 sec (9.0-11.6)
== END 2023-07-06 11:18 | disposition home or self-care (01) ==
LOC: LAB 11:17
PROVIDERS: PCP Family Medicine
DX: I35.1 Nonrheumatic aortic (valve) insufficiency (principal)
CPT/HCPCS: 36415; 85610

== ENCOUNTER 2023-07-07 12:31 | Outpatient (REF) | payer BC, SELFPAY ==
--- OUTSIDE RECORDS SUMMARY | 2023-07-07 12:35 | XMS_ITS | CCD ---
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 Operations Research Scientist Name Role Phone Pal CHILD WELFARE CONSULTANT - [facility] Primary Care Provide r [facility] Primary Care Unavailable JUANITA CARMONA Consulting Unavailable JUANITA CARMONA Attending Unavailable JUANITA CARMONA Admitting [facility]available [facility] WELFARE CONSULTANT.[facility] Primary Care Provider [facility] Primary Care Physician UnavailNicolasa Perry Unavailable Unavailable [facility] Primary Care Physician [facility] CHILD WELFARE CONSULTANT.[facility] Primary Care Provider [facility] CHILD WELFARE CONSULTANT.[facility] Primary Care Provider [facility] CH[facility] WELFARE CONSULTANT.[facility] Primary Care Provider JAVIER, DR KINGSLEY Ro Consulting Unavailable YRN, DR ARROYO Attending Unavailable YRN, DR ARROYO Admitting Unavailable TOSHA, DR JAYY Marte Consulting Unavailable YRN, DR ARROYO Consulting Unavailable [facility] Referring Unavailable [facility] Primary Care Unavailable ANH MENA Attending Unavailab ANH Morales Referring Unavailab [facility] Primary Care Unavailable [facility] Primary Care Unavailable [facility] Referring Unavailable [facility] Primary Care Unavailable [facility] Attending Unavailable [facility] Referring Unavailable [facility] Primary Care Unavailable [facility] Primary Care Unavailable TREY SHARMA Attending Unavailable TREY SHARMA Referring Unavailable [facility] Attending Unavailable [facility] Primary Care Unavailable [facility] Primary Care Unavailable [facility] Referring Unavailable [facility] Primary Care Unavailable [facility] Attending Unavailable [facility] Referring Unavailable [facility] Primary Care Unavailable [facility] Referring Unavailable [facility] Primary Care Unavailable [facility] Attending Unavailable [facility] Primary Care Unavailable JAYY PATEL Referring Unavailable [facility] Primary Care Unavailable [facility] Attending Unavailable [facility] Primary Care Unavailable ANH MENA Attending Unavailab [facility] Referring Unavailable ANH MENA Referring Unavailab TARSHA Willson Attending Unavailable [facility] Primary Care Unavailable [facility] Primary Care Unavailable [facility] Referring Unavailable [facility] Primary Care Unavailable [facility] Referring Unavailable Kelly Yi Unavailable HAIDER [facility] Primary Care Provider HAIDER Yi Attending Provider HAIDER Quezada Attending Provider HAIDER Guerrero Primary Care Provider [phone] Siri Quezada Unavailable Vonnie Guerrero Primary Care Physician [phone] Kandis Amado Unavailable HAID[facility] Primary Care Provider HAIDER Yi Attending Provider [phone] HAIDER Quezada Attending Provider HAIDER Guerrero Primary Care Provider DO Huan Cowan Attending Provider Katya Harrington Unavailable Unavailable Siri Quezada Admitting Unavailable Siri Quezada Attending Unavailable [facility] Unavailabl e Judie Quezadaica Admitting Unavailable Siri Quezada Attending Unavailable Vonnie Guerrero Primary Care Unavailable Judie Quezadaica Admitting Unavailable Siri Quezada Attending Unavailable Vonnie Guerrero Primary Care Unavailable Huan Cowan Admitting Unavailable Huan Cowan Attending Unavailable [facility] Unavailabl e Kelly Yi Admitting Unavailable Kelly Yi Attending Unavailable HUAN COWAN Referring Unavailable HUAN COWAN Attending Unavailable HUAN COWAN Attending Unavailable HUAN COWAN Referring Unavailable Jean SEXTON, Brenton Reid Attending Unavailable Jean SEXTON, Brenton Reid Attending Unavailable Jean SEXTON, Brenton Reid Attending Unavailable Jean SEXTON, Brenton Reid Attending Unavailable Joel Bledsoe Attending Unavailable [facility] Unavailable Joel Bledsoe Attending Unavailable [facility] Unavailable Joel Bledsoe Admitting Unavailable YolandaVonnie wadsworth [...] to adverse reactions to drug (disorder) [facility] Medications Current Medications Medication Drug [...] Start: 03-01-2019 take 2 tablets by mo [facility] every six hours as needed for pain acetaminophen 325 mg Tab 650 mg = 2 tab(s), Oral, q6hr, PRN Pain, Refills(s) 0 Start Date: 03/01/19 Status: Ordered take 2 tablets by mo [facility] every twelve hours Acetaminophen 500 MG 2 tablet Orally bid Active [facility] hours as needed Acetaminophen [...] day(s), # 9 cap(s), Refills(s) 0, Pharmacy: [facility] #[facility], 185.5, cm, 08/08/21 12:06:00 EDT, Height/Length [...] constipation, # 20 cap(s), Refills(s) 0, Pharmacy: [facility], 185.5, cm, 08/08/21 12:06:00 EDT, Height/Length [...] milk, # 60 tab(s), Refills(s) 0, Pharmacy: [facility] #[facility], 185.5, cm, 08/08/21 12:06:00 EDT, Height/Length [...] # 90 tab(s), Refills(s) 3, Pharmacy: [facility]/pharmacy #[id number], 185.5, cm, 01/09/23 16:37:00 EDT, [...] Ordered Start: 03-23-2017 take 1 capsule by [facility] once daily Prilosec 20 mg Cap - DR 20 mg, Oral, Daily, Refills(s) 0 Start Date: 03/23/17 Status: Ordered Start: 2016 take 1 capsule by [facility] once daily Omeprazole 40 mg capsule Indications: Gastroesophageal reflux disease, esophagitis presence not specified Take 1 capsule by mouth once daily. 30 capsule 11 2016 Active take 1 tablet by [facility] once daily PriLOSEC OTC 20 MG 1 tablet 30 minutes before morning meal Orally Once a day Active End: 07-25-2021 Omeprazole Magnesium (PRILOS EC OTC) 20 mg tablet 2 tablet 0 07/25/2021 Discontinued (Discontinued by Patient) Comment on above: Take 1 capsule by [facility] once daily. 2 tablet ondansetron (ZOFRAN-ODT) disintegrating [...] Starting 08/01/20 at 2358 polyethylene glycol 3350 84651 mg powder for oral solution (1 source) [...] tab(s), Refill(s) 0, 1-2 tab(s) Oral q4hr, [facility] #[facility], 185.5, cm, 08/08/21 12:06:00 EDT, [...] autopap titration study. Please fax results to [phone]. DX: JACOBY G47.33 1 Each 0 11/08/2016 09/13/2020 Discontinued Comment on above: Please perform autop ap titration study. Please fax results to [phone]. DX: JACOBY G47.33 doxepin hydrochloride 10 mg [...] Comment on above: Take 2 tablets by [facility] daily with dinner. 1 ml morphine sulfate [...] 10 mL injection (DEFINITY) polyethylene glycol 3350 430836 mg / potassium chloride 2970 mg / sodium bicarbonate 6740 mg / sodium chloride 5860 mg / sodium sulfate 09701 mg powder for oral solution (14 sources) [...] disease (2 sources) Atherosclerotic heart disease of [place] coronary artery without angina pectoris; Translations: [Atherosclerotic heart disease of [place] coronary artery without angina pectoris] Onset: 06-21-2023 [...] [Morbid obesity with BMI of 50.0-59.9, adult ([facility])] Onset: 11-26-2019 Chronic Other nutritional; endocrine; and metabolic disorders (4 sources) Body mass index (BMI) 50.0-59.9, adult; Translations: [Morbid obesity with BMI of 50.0-59.9, adult ([facility])] Onset: 11-26-2019 Chronic Other nutritional; [...] Reference Range Facility 30on 07-05-2023 30 Normal [facility] BASIC METABOLIC PANELon Anion gap [Moles/Vol] 12 mmol/L Normal 7-20 [facility] Comment on above: Performed By: #### L [id number] ####[facility] (BEAKER)[address] [place] [address] Calcium [Mass/Vol] 8.7 mg/dL Normal 8.6-10.3 [facility] Comment on above: Performed By: #### L [id number] ####[facility] (BEAKER)[address] [place] [address] Chloride [Moles/Vol] 102 mmol/L Normal 98-107 [facility] Comment on above: Performed By: #### L [id number] ####[facility] (BE[facility]ER)[address] [place] [address] CO2 [Moles/Vol] 25 mmol/L Normal 21-31 [facility] Comment on above: Performed By: #### L [id number] ####[facility] ([facility])[address] [facility] [place] [address] Creatinine [Mass/Vol] 1.02 mg/dL Normal 0.70-1.30 [facility] Comment on above: Performed By: #### L [id number] ####[facility] ([facility])[address] [place] [address] GLOMERULAR FILTRATION RATE ML/MIN/1.73 SQ M.PREDICTED 89.5 mL/min/1.73m*2 Normal >60.0 [facility] Comment on above: Result Comment: The [facility]???s estimated glomerular filtration rate (eGFR) will no [...] of individuals. Performed By: #### L [id number] ####[facility] ([facility])[address] [place] [address] Glucose [Mass/Vol] 101 mg/dL High 70-100 [facility] Comment on above: Performed By: #### L [id number] ####[facility] ([facility])[address] [place] [address] Potassium [Moles/Vol] 3.9 mmol/L Normal 3.5-5.1 [facility] Comment on above: Performed By: #### L [id number] ####[facility] ([facility])[address] [place] [address] Sodium [Moles/Vol] 135 mmol/L Low 136-145 [facility] Comment on above: Performed By: #### L [id number] ####[facility] ([facility])[address] [place] [address] Urea nitrogen [Mass/Vol] 14 mg/dL Normal 7-25 [facility] Comment on above: Performed By: #### L [id number] ####[facility] ([facility])[address] [place] [address] UREA NITROGEN/CREATININE (MASS RATIO) IN SER/PLAS 13.7 Normal [facility] Comment on above: Performed By: #### L [id number] ####[facility] ([facility])[address] [place] [address] CBCon 07-05-2023 Erythrocyte distribution width (RBC) [Ratio] 15.7 % High 11.5-15.0 [facility] Comment on above: Performed By: #### L [id number] ####[facility] ([facility])[address] [place] [address] ERYTHROCYTE MEAN CORPUSCULAR HEMOGLOBIN CONCENTRATION (G/DL) BY AUTOMATED 31.8 g/dL Low 32.0-35.0 [facility] Comment on above: Performed By: #### L [id number] ####[facility] ([facility])[address] [place] [address] Hematocrit (Bld) [Volume fraction] 26.1 % Low 39.0-55.0 [facility] Comment on above: Performed By: #### L [id number] ####[facility] ([facility])[address] [place] [address] Hemoglobin (Bld) [Mass/Vol] 8.3 g/dL Low 13.0-17.0 [facility] Comment on above: Performed By: #### L [id number] ####[facility] [place] [address] MCH (RBC) [Entitic mass] 28.2 pg Normal 27.0-33.0 [facility] Comment on above: Performed By: #### L [id number] ####[facility] [place] [address] MCV (RBC) [Entitic vol] 88.8 fL Normal 82.0-98.0 [facility] Comment on above: Performed By: #### L [id number] ####[facility] ([facility])[address] [place] [address] PLATELETS (10*3/UL) IN BLOOD AUTOMATED COUNT 216 10*3/uL Normal 150-400 [facility] Comment on above: Performed By: #### L [id number] ####[facility] ([facility])[address] [place] [address] RBC (Bld) [#/Vol] 2.94 10*6/uL Low 4.20-5.70 [facility] Comment on above: Performed By: #### L [id number] ####[facility] ([facility])[address] [place], [place] [address] WBC (Bld) [#/Vol] 4.87 10*3/uL Normal 4.00-10.60 [facility] Comment on above: Performed By: #### L [id number] ####[facility] ([facility])[address] [place] [address] Letter (Out)on 07-05-2023 Letter (Out) Normal [facility] MAGNESIUMon 07-05-2023 Magnesium [Mass/Vol] 1.9 mg/dL Normal 1.9-2.7 [facility] Comment on above: Performed By: #### L [id number] ####[facility] ([facility])[address] [place] [address] POCT GLUCOSE METER UNSOLICIT ED RESULTSon 07-05-2023 Glucose [Mass/Vol] 123 mg/dL High 70-105 [facility] Comment on above: Order Comment: Waive d Testing in the ED is performed under the ED CLIA certificate #[id number]. Result Comment: [email or web address] Performed By: #### L [id number] ####[facility] [place] [address] Glucose [Mass/Vol] 112 mg/dL High 70-105 [facility] Comment on above: Order Comment: Waive d Testing in the ED is performed under the ED CLIA certificate #[id number]. Result Comment: [email or web address] Performed By: #### L [id number] ####[facility] (DAMARIS)[address] [place] [address] PROTIME-INRon 07-05-2023 INR IN PPP BY COAGULATION ASSAY 2.17 High 0.90-1.10 [facility] Comment on above: Result Comment: ACCC P [...] CHEST 1995;108:231S-246S. Performed By: #### L [id number] ####[facility] ([facility]AM[facility])[address] [place] [address] PROTHROMBIN TIME (PT) IN PPP BY COAGULATION ASSAY 24.3 Seconds High 12.3-14.8 [facility] Comment on above: Performed By: #### L [id number] ####[facility] ([facility])[address] [place] [address] 30on 07-04-2023 30 Normal [facility] 30 Normal [facility] ANTI-XA (LOW MOLECULAR WGT H EPARIN LVL)on 07-04-2023 LMW HEPARIN (U/ML) IN PPP BY CHROMOGENIC METHOD 1.00 IU/mL Normal 0.6-1.2 [facility] Comment on above: Order Comment: For E [...] and LMWH. Performed By: #### L [id number] ####[facility] (BEAKER)[address] [place] [address] BASIC METABOLIC PANELon 04-0 Anion gap [Moles/Vol] 10 mmol/L Normal 7-20 [facility] Comment on above: Performed By: #### L [id number] ####[facility] (BEAKER)[address] [place] [address] Calcium [Mass/Vol] 8.6 mg/dL Normal 8.6-10.3 [facility] Comment on above: Performed By: #### L [id number] ####[facility] ([facility]ER)[address] [place] [address] Chloride [Moles/Vol] 103 mmol/L Normal 98-107 [facility] Comment on above: Performed By: #### L [id number] ####[facility] ([facility]ER)[address] [place] [address] CO2 [Moles/Vol] 28 mmol/L Normal 21-31 [facility] Comment on above: Performed By: #### L [id number] ####[facility] ([facility]ER)[address] [place] [address] Creatinine [Mass/Vol] 1.04 mg/dL Normal 0.70-1.30 [facility] Comment on above: Performed By: #### L [id number] ####[facility] ([facility]ER)[address] [place] [address] GLOMERULAR FILTRATION RATE ML/MIN/1.73 SQ M.PREDICTED 87.5 mL/min/1.73m*2 Normal >60.0 [facility] Comment on above: Result Comment: The [facility]???s estimated glomerular filtration rate (eGFR) will no [...] of individuals. Performed By: #### L [id number] ####[facility] ([facility])[address] [place] [address] Glucose [Mass/Vol] 91 mg/dL Normal 70-100 [facility] Comment on above: Performed By: #### L [id number] ####[facility] ([facility])[address] [place] [address] Potassium [Moles/Vol] 4.6 mmol/L Normal 3.5-5.1 [facility] Comment on above: Performed By: #### L [id number] ####[facility] ([facility])[address] [place] [address] Sodium [Moles/Vol] 136 mmol/L Normal 136-145 [facility] Comment on above: Performed By: #### L [id number] ####[facility] [place] [address] Urea nitrogen [Mass/Vol] 13 mg/dL Normal 7-25 [facility] Comment on above: Performed By: #### L [id number] ####[facility] ([facility])[address] [place] [address] UREA NITROGEN/CREATININE (MASS RATIO) IN SER/PLAS 12.5 Normal [facility] Comment on above: Performed By: #### L [id number] ####[facility] ([facility])[address] [place] [address] CBCon 07-04-2023 Erythrocyte distribution width (RBC) [Ratio] 15.8 % High 11.5-15.0 [facility] Comment on above: Performed By: #### L [id number] ####[facility] ([facility])[address] [place] [address] ERYTHROCYTE MEAN CORPUSCULAR HEMOGLOBIN CONCENTRATION (G/DL) BY AUTOMATED 32.0 g/dL Normal 32.0-35.0 [facility] Comment on above: Performed By: #### L [id number] ####[facility] ([facility])[address] [place] [address] Hematocrit (Bld) [Volume fraction] 24.7 % Low 39.0-55.0 [facility] Comment on above: Performed By: #### L [id number] ####[facility] ([facility])[address] [place] [address] Hemoglobin (Bld) [Mass/Vol] 7.9 g/dL Low 13.0-17.0 [facility] Comment on above: Performed By: #### L [id number] ####[facility] ([facility])[address] [place] [address] MCH (RBC) [Entitic mass] 28.9 pg Normal 27.0-33.0 [facility] Comment on above: Performed By: #### L [id number] ####[facility] ([facility])[address] [place] [address] MCV (RBC) [Entitic vol] 90.5 fL Normal 82.0-98.0 [facility] Comment on above: Performed By: #### L [id number] ####[facility] ([facility])[address] [place] [address] PLATELETS (10*3/UL) IN BLOOD AUTOMATED COUNT 243 10*3/uL Normal 150-400 [facility] Comment on above: Performed By: #### L [id number] ####[facility] ([facility])[address] [place] [address] RBC (Bld) [#/Vol] 2.73 10*6/uL Low 4.20-5.70 [facility] Comment on above: Performed By: #### L [id number] ####[facility] ([facility])[address] [place] [address] WBC (Bld) [#/Vol] 5.14 10*3/uL Normal 4.00-10.60 [facility] Comment on above: Performed By: #### L [id number] ####[facility] ([facility])[address] [place] [address] MAGNESIUMon 07-04-2023 Magnesium [Mass/Vol] 1.9 mg/dL Normal 1.9-2.7 [facility] Comment on above: Performed By: #### L [id number] ####[facility] ([facility])[address] [place] [address] POCT GLUCOSE METER UNSOLICIT ED RESULTSon 07-04-2023 Glucose [Mass/Vol] 112 mg/dL High 70-105 [facility] Comment on above: Order Comment: Waive d Testing in the ED is performed under the ED CLIA certificate #[id number]. Result Comment: [email or web address] Performed By: #### L [id number] ####[facility] ([facility])[address] [place] [address] Glucose [Mass/Vol] 130 mg/dL High 70-105 [facility] Comment on above: Order Comment: Waive d Testing in the ED is performed under the ED CLIA certificate #[id number]. Result Comment: [email or web address] Performed By: #### L [id number] ####[facility] ([facility])[address] [place] [address] Glucose [Mass/Vol] 127 mg/dL High 70-105 [facility] Comment on above: Order Comment: Waive d Testing in the ED is performed under the ED CLIA certificate #[id number]. Result Comment: [email or web address] Performed By: #### L [id number] ####[facility] (BEAKER)[address] [place] [address] Glucose [Mass/Vol] 113 mg/dL High 70-[address] [facility] Comment on above: Order Comment: Waive d Testing in the ED is performed under the ED CLIA certificate #[id number]. Result Comment: [email or web address] Performed By: #### L [id number] ####[facility] ([facility])[address] [place] [address] PROTIME-INRon 07-04-2023 INR IN PPP BY COAGULATION ASSAY 1.77 High 0.90-1.10 [facility] Comment on above: Result Comment: ACCC P [...] CHEST 1995;108:231S-246S. Performed By: #### L [id number] ####[facility] ([employer])[address] [place] [address] PROTHROMBIN TIME (PT) IN PPP BY COAGULATION ASSAY 20.7 Seconds High 12.3-14.8 [facility] Comment on above: Performed By: #### L [id number] ####[facility] ([facility])[address] [facility] [address] 30on 07-03-2023 30 Normal [facility] ANTI-XA (HEPARIN LEVEL)on HEPARIN UNFRACTIONATED (U/ML) IN PPP BY CHROMOGENIC METHOD 0.12 IU/mL Invalid Interpretation Code 0.3-0.7 [facility] Comment on above: Result Comment: [place] roxaban and Apixaban will interfere with the anti Xa assay used to monitor UFH and LMWH. Performed By: #### L [id number] ####[facility] [place] [address] BASIC METABOLIC PANELon Anion gap [Moles/Vol] 11 mmol/L Normal 7-20 [facility] Comment on above: Performed By: #### L [id number] ####[facility] [place] [address] Calcium [Mass/Vol] 8.9 mg/dL Normal 8.6-10.3 [facility] Comment on above: Performed By: #### L [id number] ####[facility] (BEAKER)[address] [place] [address] Chloride [Moles/Vol] 101 mmol/L Normal 98-107 [facility] Comment on above: Performed By: #### L [id number] ####[facility] (BEAKER)[address] [place] [address] CO2 [Moles/Vol] 28 mmol/L Normal 21-31 [facility] Comment on above: Performed By: #### L [id number] ####[facility] (BEAKER)[address] [place] [address] Creatinine [Mass/Vol] 1.03 mg/dL Normal 0.70-1.30 [facility] Comment on above: Performed By: #### L [id number] ####[facility] (BEAKER)[address] [place] [address] GLOMERULAR FILTRATION RATE ML/MIN/1.73 SQ M.PREDICTED 88.5 mL/min/1.73m*2 Normal >60.0 [facility] Comment on above: Result Comment: The [facility]???s estimated glomerular filtration rate (eGFR) will no [...] of individuals. Performed By: #### L [id number] ####[facility] (BEAKER)[address] [place] [address] Glucose [Mass/Vol] 87 mg/dL Normal 70-100 [facility] Comment on above: Performed By: #### L [id number] ####[facility] [place] [address] Potassium [Moles/Vol] 4.4 mmol/L Normal 3.5-5.1 [facility] Comment on above: Performed By: #### L [id number] ####[facility] ([facility]ER)[address] [place] [address] Sodium [Moles/Vol] 136 mmol/L Normal 136-145 [facility] Comment on above: Performed By: #### L [id number] ####[facility] (BEAKER)[address] [place] [address] Urea nitrogen [Mass/Vol] 13 mg/dL Normal 7-25 [facility] Comment on above: Performed By: #### L [id number] ####[facility] [place] [address] UREA NITROGEN/CREATININE (MASS RATIO) IN SER/PLAS 12.6 Normal [facility] Comment on above: Performed By: #### L [id number] ####[facility] (BEAKER)[address] [place] [address] CBCon 07-03-2023 Erythrocyte distribution width (RBC) [Ratio] 15.5 % High 11.5-15.0 [facility] Comment on above: Performed By: #### L [id number] ####[facility] ([facility])[address] [place] [address] ERYTHROCYTE MEAN CORPUSCULAR HEMOGLOBIN CONCENTRATION (G/DL) BY AUTOMATED 31.9 g/dL Low 32.0-35.0 [facility] Comment on above: Performed By: #### L [id number] ####[facility] ([facility])[address] [place] [address] Hematocrit (Bld) [Volume fraction] 25.4 % Low 39.0-55.0 [facility] Comment on above: Performed By: #### L [id number] ####[facility] ([facility])[address] [place] [address] Hemoglobin (Bld) [Mass/Vol] 8.1 g/dL Low 13.0-17.0 [facility] Comment on above: Performed By: #### L [id number] ####[facility] ([facility])[address] [place] [address] MCH (RBC) [Entitic mass] 28.8 pg Normal 27.0-33.0 [facility] Comment on above: Performed By: #### L [id number] ####[facility] ([facility])[address] [place] [address] MCV (RBC) [Entitic vol] 90.4 fL Normal 82.0-98.0 [facility] Comment on above: Performed By: #### L [id number] ####[facility] [place] [address] PLATELETS (10*3/UL) IN BLOOD AUTOMATED COUNT 247 10*3/uL Normal 150-400 [facility] Comment on above: Performed By: #### L [id number] ####[facility] [place] [address] RBC (Bld) [#/Vol] 2.81 10*6/uL Low 4.20-5.70 [facility] Comment on above: Performed By: #### L [id number] ####[facility] ([facility])[address] [place] [address] WBC (Bld) [#/Vol] 4.31 10*3/uL Normal 4.00-10.60 [facility] Comment on above: Performed By: #### L [id number] ####[facility] ([facility])[address] [place] [address] MAGNESIUMon 07-03-2023 Magnesium [Mass/Vol] 2.0 mg/dL Normal 1.9-2.7 [facility] Comment on above: Performed By: #### L [id number] ####[facility] ([facility])[address] [place] [address] POCT GLUCOSE METER UNSOLICIT ED RESULTSon 07-03-2023 Glucose [Mass/Vol] 127 mg/dL High 70-105 [facility] Comment on above: Order Comment: Waive d Testing in the ED is performed under the ED CLIA certificate #[id number]. Result Comment: [email or web address] Performed By: #### L [id number] ####[facility] ([facility])[address] [place] [address] Glucose [Mass/Vol] 129 mg/dL High 70-105 [facility] Comment on above: Order Comment: Waive d Testing in the ED is performed under the ED CLIA certificate #[id number]. Result Comment: [email or web address] Performed By: #### L [id number] ####[facility] ([facility])[address] [place] [address] Glucose [Mass/Vol] 135 mg/dL High 70-105 [facility] Comment on above: Order Comment: Waive d Testing in the ED is performed under the ED CLIA certificate #[id number]. Result Comment: [email or web address] Performed By: #### L [id number] ####[facility] [place] [address] Glucose [Mass/Vol] 99 mg/dL Normal 70-105 [facility] Comment on above: Order Comment: Waive d Testing in the ED is performed under the ED CLIA certificate #[id number]. Result Comment: [email or web address] Performed By: #### L [id number] ####[facility] ([employer])[address] [place] [address] PROTIME-INRon 07-03-2023 INR IN PPP BY COAGULATION ASSAY 1.62 High 0.90-1.10 [facility] Comment on above: Result Comment: ACCC P [...] CHEST 1995;108:231S-246S. Performed By: #### L [id number] ####[facility] ([facility])[address] [place] [address] PROTHROMBIN TIME (PT) IN PPP BY COAGULATION ASSAY 19.3 Seconds High 12.3-14.8 [facility] Comment on above: Performed By: #### L [id number] ####[facility] ([facility])[address] [place] [address] 30on 07-02-2023 30 The patient is Moder ately Stable - Low risk of patient condition declining or worsening The patient's goals for the shift include comfort, rest The clinical goals for the shift include Stable vitals, comfort Normal [facility] 30 Normal [facility] 30 Normal [facility] 30 Normal [facility] ANTI-XA (HEPARIN LEVEL)on HEPARIN UNFRACTIONATED (U/ML) IN PPP BY CHROMOGENIC METHOD 0.47 IU/mL Normal 0.3-0.7 [facility] Comment on above: Result Comment: Sofy roxaban and Apixaban will interfere with the anti Xa assay used to monitor UFH and LMWH. Performed By: #### L [id number] ####[facility] ([facility])[address] [place] [address] BASIC METABOLIC PANELon Anion gap [Moles/Vol] 12 mmol/L Normal 7-20 [facility] Comment on above: Performed By: #### L [id number] ####[facility] ([facility])[address] [place] [address] Calcium [Mass/Vol] 8.9 mg/dL Normal 8.6-10.3 [facility] Comment on above: Performed By: #### L [id number] ####[facility] ([facility])[address] [place] [address] Chloride [Moles/Vol] 97 mmol/L Low 98-107 [facility] Comment on above: Performed By: #### L [id number] ####[facility] ([facility])[address] [place] [address] CO2 [Moles/Vol] 28 mmol/L Normal 21-31 [facility] Comment on above: Performed By: #### L [id number] ####[facility] ([facility])[address] [place] [address] Creatinine [Mass/Vol] 1.00 mg/dL Normal 0.70-1.30 [facility] Comment on above: Performed By: #### L [id number] ####[facility] ([facility])[address] [place] [address] GLOMERULAR FILTRATION RATE ML/MIN/1.73 SQ M.PREDICTED 91.7 mL/min/1.73m*2 Normal >60.0 [facility] Comment on above: Result Comment: The [facility]???s estimated glomerular filtration rate (eGFR) will no [...] of individuals. Performed By: #### L [id number] ####[facility] ([facility])[address] [place] [address] Glucose [Mass/Vol] 100 mg/dL Normal 70-100 [facility] Comment on above: Performed By: #### L [id number] ####[facility] ([facility])[address] [place] [address] Potassium [Moles/Vol] 3.9 mmol/L Normal 3.5-5.1 [facility] Comment on above: Performed By: #### L [id number] ####[facility] ([facility])[address] [place] [address] Sodium [Moles/Vol] 133 mmol/L Low 136-145 [facility] Comment on above: Performed By: #### L [id number] ####[facility] ([facility])[address] [place] [address] Urea nitrogen [Mass/Vol] 10 mg/dL Normal 7-25 [facility] Comment on above: Performed By: #### L [id number] ####[facility] ([facility])[address] [place] [address] UREA NITROGEN/CREATININE (MASS RATIO) IN SER/PLAS 10.0 Normal [facility] Comment on above: Performed By: #### L [id number] ####[facility] ([facility])[address] [place] [address] CBC WITH AUTO DIFFERENTIALon 07-02-2023 Basophils (Bld) [#/Vol] 0.05 10*3/uL Normal 0.00-0.20 [facility] Comment on above: Performed By: #### L [id number] ####[facility] ([facility])[address] [place] [address] Basophils/100 WBC (Bld) 0.9 % Normal 0.0-1.0 [facility] Comment on above: Performed By: #### L [id number] ####[facility] ([facility])[address] [place] [address] Eosinophils (Bld) [#/Vol] 0.27 10*3/uL Normal 0.00-0.50 [facility] Comment on above: Performed By: #### L [id number] ####[facility] ([facility])[address] [place] [address] Eosinophils/100 WBC (Bld) 4.6 % Normal 0.0-6.0 [facility] Comment on above: Performed By: #### L [id number] ####[facility] ([facility])[address] [place] [address] Erythrocyte distribution width (RBC) [Ratio] 15.4 % High 11.5-15.0 [facility] Comment on above: Performed By: #### L [id number] ####[facility] ([facility])[address] [place] [address] ERYTHROCYTE MEAN CORPUSCULAR HEMOGLOBIN CONCENTRATION (G/DL) BY AUTOMATED 32.7 g/dL Normal 32.0-35.0 [facility] Comment on above: Performed By: #### L [id number] ####[facility] ([facility])[address] [place] [address] Hematocrit (Bld) [Volume fraction] 27.2 % Low 39.0-55.0 [facility] Comment on above: Performed By: #### L [id number] ####[facility] ([facility])[address] [place] [address] Hemoglobin (Bld) [Mass/Vol] 8.9 g/dL Low 13.0-17.0 [facility] Comment on above: Performed By: #### L [id number] ####[facility] ([facility])[address] [place] [address] Immature granulocytes (Bld) [#/Vol] 0.04 10*3/uL Normal 0.00-0.20 [facility] Comment on above: Performed By: #### L [id number] ####[facility] ([facility])[address] [place] [address] Immature granulocytes/100 WBC (Bld) 0.7 % Normal 0.0-1.0 [facility] Comment on above: Performed By: #### L [id number] ####[facility] ([facility])[address] [place] [address] Lymphocytes (Bld) [#/Vol] 1.10 10*3/uL Low 1.20-4.00 [facility] Comment on above: Performed By: #### L [id number] ####[facility] ([facility])[address] [place] [address] Lymphocytes/100 WBC (Bld) 18.8 % Low 20.0-45.0 [facility] Comment on above: Performed By: #### L [id number] ####[facility] ([facility])[address] [place] [address] MCH (RBC) [Entitic mass] 29.0 pg Normal 27.0-33.0 [facility] Comment on above: Performed By: #### L [id number] ####[facility] ([facility])[address] [place] [address] MCV (RBC) [Entitic vol] 88.6 fL Normal 82.0-98.0 [facility] Comment on above: Performed By: #### L [id number] ####[facility] ([facility])[address] [facility] [address] Monocytes (Bld) [#/Vol] 0.73 10*3/uL Normal 0.10-1.00 [facility] Comment on above: Performed By: #### L [id number] ####[facility] ([facility])[address] [place] [address] Monocytes/100 WBC (Bld) 12.5 % High 5.0-12.0 [facility] Comment on above: Performed By: #### L [id number] ####[facility] ([facility])[address] [place] [address] Neutrophils (Bld) [#/Vol] 3.67 10*3/uL Normal 1.60-7.60 [facility] Comment on above: Performed By: #### L [id number] ####[facility] ([facility])[address] [place] [address] Neutrophils/100 WBC (Bld) 62.5 % Normal 40.0-72.0 [facility] Comment on above: Performed By: #### L [id number] ####[facility] ([facility])[address] [place] [address] NRBC (PER 100 WBCS) BY AUTOMATED COUNT 0.0 % Normal 0 [facility] Comment on above: Performed By: #### L [id number] ####[facility] ([facility])[address] [place] [address] PLATELETS (10*3/UL) IN BLOOD AUTOMATED COUNT 292 10*3/uL Normal 150-400 [facility] Comment on above: Performed By: #### L [id number] ####[facility] ([facility])[address] [place] [address] RBC (Bld) [#/Vol] 3.07 10*6/uL Low 4.20-5.70 [facility] Comment on above: Performed By: #### L [id number] ####[facility] ([facility])[address] [place] [address] WBC (Bld) [#/Vol] 5.86 10*3/uL Normal 4.00-10.60 [facility] Comment on above: Performed By: #### L [id number] ####[facility] ([facility])[address] [place] [address] MAGNESIUMon 07-02-2023 Magnesium [Mass/Vol] 2.0 mg/dL Normal 1.9-2.7 [facility] Comment on above: Performed By: #### L [id number] ####[facility] ([facility])[address] [place] [address] NURSNOTEon 07-02-2023 NURSNOTE Heparin level 0.47, no need for rate change at this time. Safety Maintained. Normal [facility] POCT GLUCOSE METER UNSOLICIT ED RESULTSon 07-02-2023 Glucose [Mass/Vol] 118 mg/dL High 70-105 [facility] Comment on above: Order Comment: Waive d Testing in the ED is performed under the ED CLIA certificate #[id number]. Result Comment: [email or web address] Performed By: #### L [id number] ####[facility] ([facility])[address] [place] [address] Glucose [Mass/Vol] 154 mg/dL High 70-105 [facility] Comment on above: Order Comment: Waive d Testing in the ED is performed under the ED CLIA certificate #[id number]. Result Comment: [email or web address] Performed By: #### L [id number] ####[facility] ([facility])[address] [place] [address] Glucose [Mass/Vol] 138 mg/dL High 70-105 [facility] Comment on above: Order Comment: Waive d Testing in the ED is performed under the ED CLIA certificate #[id number]. Result Comment: [email or web address] Performed By: #### L [id number] ####[facility] ([facility])[address] [place] [address] Glucose [Mass/Vol] 106 mg/dL High 70-105 [facility] Comment on above: Order Comment: Waive d Testing in the ED is performed under the ED CLIA certificate #[id number]. Result Comment: [email or web address] Performed By: #### L [id number] ####[facility] ([facility])[address] [place] [address] PROTIME-INRon 07-02-2023 INR IN PPP BY COAGULATION ASSAY 1.45 High 0.90-1.10 [facility] Comment on above: Result Comment: ACCC P [...] CHEST 1995;108:231S-246S. Performed By: #### L [id number] ####[facility] ([facility])[address] [place] [address] PROTHROMBIN TIME (PT) IN PPP BY COAGULATION ASSAY 17.7 Seconds High 12.3-14.8 [facility] Comment on above: Performed By: #### L [id number] ####[facility] ([facility])[address] [place] [address] 30on 07-01-2023 30 Normal [facility] 30 Normal [facility] 30 The patient is Moder ately Stable - Low risk of patient condition declining or worsening The patient's goals for the shift include comfort The clinical goals for the shift include safety Normal [facility] ANTI-XA (HEPARIN LEVEL)on 04 -01-2024 HEPARIN UNFRACTIONATED (U/ML) IN PPP BY CHROMOGENIC METHOD 0.38 IU/mL Normal 0.3-0.7 [facility] Comment on above: Result Comment: [place] roxaban and Apixaban will interfere with the anti Xa assay used to monitor UFH and LMWH. Performed By: #### L [id number] ####[facility] ([facility])[address] [place] [address] BASIC METABOLIC PANELon 04-0 Anion gap [Moles/Vol] 12 mmol/L Normal 7-20 [facility] Comment on above: Performed By: #### L [id number] ####[facility] ([facility])[address] [place] [address] Calcium [Mass/Vol] 8.6 mg/dL Normal 8.6-10.3 [facility] Comment on above: Performed By: #### L [id number] ####[facility] ([facility])[address] [place] [address] Chloride [Moles/Vol] 95 mmol/L Low 98-107 [facility] Comment on above: Performed By: #### L [id number] ####[facility] ([facility])[address] [place] [address] CO2 [Moles/Vol] 30 mmol/L Normal 21-31 [facility] Comment on above: Performed By: #### L [id number] ####[facility] ([facility])[address] [place] [address] Creatinine [Mass/Vol] 0.89 mg/dL Normal 0.70-1.30 [facility] Comment on above: Performed By: #### L [id number] ####[facility] ([facility])[address] [facility] [facility] [address] GLOMERULAR FILTRATION RATE ML/MIN/1.73 SQ M.PREDICTED 104.4 mL/min/1.73m*2 Normal >60.0 [facility] Comment on above: Result Comment: The [facility]???s estimated glomerular filtration rate (eGFR) will no [...] of individuals. Performed By: #### L [id number] ####[facility] ([facility])[address] [place] [address] Glucose [Mass/Vol] 95 mg/dL Normal 70-100 [facility] Comment on above: Performed By: #### L [id number] ####[facility] ([facility])[address] [place] [address] Potassium [Moles/Vol] 3.6 mmol/L Normal 3.5-5.1 [facility] Comment on above: Performed By: #### L [id number] ####[facility] ([facility])[address] [place] [address] Sodium [Moles/Vol] 133 mmol/L Low 136-145 [facility] Comment on above: Performed By: #### L [id number] ####[facility] ([facility])[address] [place] [address] Urea nitrogen [Mass/Vol] 9 mg/dL Normal 7-25 [facility] Comment on above: Performed By: #### L [id number] ####[facility] ([facility])[address] [place] [address] UREA NITROGEN/CREATININE (MASS RATIO) IN SER/PLAS 10.1 Normal [facility] Comment on above: Performed By: #### L [id number] ####[facility] ([facility])[address] [place] [address] CBCon 07-01-2023 Erythrocyte distribution width (RBC) [Ratio] 15.3 % High 11.5-15.0 [facility] Comment on above: Performed By: #### L [id number] ####[facility] ([facility])[address] [place] [address] ERYTHROCYTE MEAN CORPUSCULAR HEMOGLOBIN CONCENTRATION (G/DL) BY AUTOMATED 33.1 g/dL Normal 32.0-35.0 [facility] Comment on above: Performed By: #### L [id number] ####[facility] ([facility])[address] [place] [address] Hematocrit (Bld) [Volume fraction] 24.2 % Low 39.0-55.0 [facility] Comment on above: Performed By: #### L [id number] ####[facility] ([facility])[address] [place] [address] Hemoglobin (Bld) [Mass/Vol] 8.0 g/dL Low 13.0-17.0 [facility] Comment on above: Performed By: #### L [id number] ####[facility] [place] [address] MCH (RBC) [Entitic mass] 29.1 pg Normal 27.0-33.0 [facility] Comment on above: Performed By: #### L [id number] ####[facility] [place] [address] MCV (RBC) [Entitic vol] 88.0 fL Normal 82.0-98.0 [facility] Comment on above: Performed By: #### L [id number] ####[facility] ([facility])[address] [place] [address] PLATELETS (10*3/UL) IN BLOOD AUTOMATED COUNT 218 10*3/uL Normal 150-400 [facility] Comment on above: Performed By: #### L [id number] ####[facility] ([facility])[address] [place] [address] RBC (Bld) [#/Vol] 2.75 10*6/uL Low 4.20-5.70 [facility] Comment on above: Performed By: #### L [id number] ####[facility] ([facility])[address] [place] [address] WBC (Bld) [#/Vol] 4.96 10*3/uL Normal 4.00-10.60 [facility] Comment on above: Performed By: #### L [id number] ####[facility] ([facility])[address] [place] [address] MAGNESIUMon 07-01-2023 Magnesium [Mass/Vol] 2.0 mg/dL Normal 1.9-2.7 [facility] Comment on above: Performed By: #### L [id number] ####[facility] ([facility])[address] [place] [address] POCT GLUCOSE METER UNSOLICIT ED RESULTSon 07-01-2023 Glucose [Mass/Vol] 128 mg/dL High 70-105 [facility] Comment on above: Order Comment: Waive d Testing in the ED is performed under the ED CLIA certificate #[id number]. Result Comment: [email or web address] Performed By: #### L [id number] ####[facility] ([facility])[address] [place] [address] Glucose [Mass/Vol] 119 mg/dL High 70-105 [facility] Comment on above: Order Comment: Waive d Testing in the ED is performed under the ED CLIA certificate #[id number]. Result Comment: [email or web address] Performed By: #### L [id number] ####[facility] ([facility])[address] [place] [address] Glucose [Mass/Vol] 151 mg/dL High 70-105 [facility] Comment on above: Order Comment: Waive d Testing in the ED is performed under the ED CLIA certificate #[id number]. Result Comment: [email or web address] Performed By: #### L [id number] ####[facility] ([facility])[address] [place] [address] Glucose [Mass/Vol] 119 mg/dL High 70-105 [facility] Comment on above: Order Comment: Waive d Testing in the ED is performed under the ED CLIA certificate #[id number]. Result Comment: [email or web address] Performed By: #### L [id number] ####[facility] ([employer])[address] [place] [address] Glucose [Mass/Vol] 121 mg/dL High 70-105 [facility] Comment on above: Order Comment: Waive d Testing in the ED is performed under the ED CLIA certificate #[id number]. Result Comment: [email or web address] Performed By: #### L [id number] ####[facility] ([employer])[address] [place] [address] PROTIME-INRon 07-01-2023 INR IN PPP BY COAGULATION ASSAY 1.37 High 0.90-1.10 [facility] Comment on above: Result Comment: ACCC P [...] CHEST 1995;108:231S-246S. Performed By: #### L [id number] ####[facility] ([employer])[address] [place] [address] PROTHROMBIN TIME (PT) IN PPP BY COAGULATION ASSAY 16.9 Seconds High 12.3-14.8 [facility] Comment on above: Performed By: #### L [id number] ####[facility] ([facility])[address] [place] [address] 30on 06-30-2023 30 Normal [facility] ANTI-XA (HEPARIN LEVEL)on HEPARIN UNFRACTIONATED (U/ML) IN PPP BY CHROMOGENIC METHOD 0.39 IU/mL Normal 0.3-0.7 [facility] Comment on above: Result Comment: [place] roxaban and Apixaban will interfere with the anti Xa assay used to monitor UFH and LMWH. Performed By: #### L [id number] ####[facility] ([facility])[address] [place] [address] BASIC METABOLIC PANELon 06-01 Anion gap [Moles/Vol] 11 mmol/L Normal 7-20 [facility] Comment on above: Performed By: #### L [id number] ####[facility] ([facility])[address] [place] [address] Calcium [Mass/Vol] 8.9 mg/dL Normal 8.6-10.3 [facility] Comment on above: Performed By: #### L [id number] ####[facility] ([facility])[address] [place] [address] Chloride [Moles/Vol] 96 mmol/L Low 98-107 [facility] Comment on above: Performed By: #### L [id number] ####[facility] ([facility])[address] [place] [address] CO2 [Moles/Vol] 30 mmol/L Normal - [facility] Comment on above: Performed By: #### L [id number] ####[facility] ([facility])[address] [place] [address] Creatinine [Mass/Vol] 0.78 mg/dL Normal 0.70-1.30 [facility] Comment on above: Performed By: #### L [id number] ####[facility] ([facility]ER)[address] [place] [address] GLOMERULAR FILTRATION RATE ML/MIN/1.73 SQ M.PREDICTED 108.6 mL/min/1.73m*2 Normal >60.0 [facility] Comment on above: Result Comment: The [facility]???s estimated glomerular filtration rate (eGFR) will no [...] of individuals. Performed By: #### L [id number] ####[facility] ([facility])[address] [place] [address] Glucose [Mass/Vol] 108 mg/dL High 70-100 [facility] [facility] Comment on above: Performed By: #### L [id number] ####[facility] ([facility])[address] [place] [address] Potassium [Moles/Vol] 3.9 mmol/L Normal 3.5-5.1 [facility] Comment on above: Performed By: #### L [id number] ####[facility] ([facility])[address] [place] [address] Sodium [Moles/Vol] 133 mmol/L Low 136-145 [facility] Comment on above: Performed By: #### L [id number] ####[facility] ([facility])[address] [place] [address] Urea nitrogen [Mass/Vol] 9 mg/dL Normal 7-25 [facility] Comment on above: Performed By: #### L [id number] ####[facility] ([facility])[address] [place] [address] UREA NITROGEN/CREATININE (MASS RATIO) IN SER/PLAS 11.5 Normal [facility] Comment on above: Performed By: #### L [id number] ####[facility] ([facility])[address] [place] [address] CBCon 06-30-2023 Erythrocyte distribution width (RBC) [Ratio] 15.4 % High 11.5-15.0 [facility] Comment on above: Performed By: #### L [id number] ####[facility] [place], [place] [address] ERYTHROCYTE MEAN CORPUSCULAR HEMOGLOBIN CONCENTRATION (G/DL) BY AUTOMATED 33.6 g/dL Normal 32.0-35.0 [facility] Comment on above: Performed By: #### L [id number] ####[facility] [place] [address] Hematocrit (Bld) [Volume fraction] 24.4 % Low 39.0-55.0 [facility] Comment on above: Performed By: #### L [id number] ####[facility] [place] [address] Hemoglobin (Bld) [Mass/Vol] 8.2 g/dL Low 13.0-17.0 [facility] Comment on above: Performed By: #### L [id number] ####[facility] [place] [address] MCH (RBC) [Entitic mass] 28.9 pg Normal 27.0-33.0 [facility] Comment on above: Performed By: #### L [id number] ####[facility] ([facility])[address] [place] [address] MCV (RBC) [Entitic vol] 85.9 fL Normal 82.0-98.0 [facility] Comment on above: Performed By: #### L [id number] ####[facility] ([facility])[address] [place] [address] PLATELETS (10*3/UL) IN BLOOD AUTOMATED COUNT 203 10*3/uL Normal 150-400 [facility] Comment on above: Performed By: #### L [id number] ####[facility] ([facility])[address] [place] [address] RBC (Bld) [#/Vol] 2.84 10*6/uL Low 4.20-5.70 [facility] Comment on above: Performed By: #### L [id number] ####[facility] ([facility])[address] [place] [address] WBC (Bld) [#/Vol] 6.03 10*3/uL Normal 4.00-10.60 [facility] Comment on above: Performed By: #### L [id number] ####[facility] ([facility])[address] [place] [address] CKon 06-30-2023 CREATINE KINASE (U/L) IN SER/PLAS 144.0 U/L Normal 30.0-223.0 [facility] Comment on above: Performed By: #### L [id number] ####[facility] ([facility])[address] [place] [address] MAGNESIUMon 06-30-2023 Magnesium [Mass/Vol] 2.1 mg/dL Normal 1.9-2.7 [facility] Comment on above: Performed By: #### L [id number] ####[facility] ([facility])[address] [place] [address] Magnesium [Mass/Vol] 2.2 mg/dL Normal 1.9-2.7 [facility] Comment on above: Performed By: #### L [id number] ####[facility] ([facility])[address] [place] [address] POCT GLUCOSE METER UNSOLICIT ED RESULTSon 06-30-2023 Glucose [Mass/Vol] 243 mg/dL High 70-105 [facility] Comment on above: Order Comment: Waive d Testing in the ED is performed under the ED CLIA certificate #[id number]. Result Comment: [email or web address] Performed By: #### L [id number] ####[facility] ([facility])[address] [place] [address] Glucose [Mass/Vol] 112 mg/dL High 70-105 [facility] Comment on above: Order Comment: Waive d Testing in the ED is performed under the ED CLIA certificate #[id number]. Result Comment: [email or web address] Performed By: #### L [id number] ####[facility] ([facility])[address] [facility] [address] Glucose [Mass/Vol] 124 mg/dL High 70-105 [facility] Comment on above: Order Comment: Waive d Testing in the ED is performed under the ED CLIA certificate #[id number]. Result Comment: [email or web address] Performed By: #### L [id number] ####[facility] ([facility])[address] [place] [address] Glucose [Mass/Vol] 158 mg/dL High 70-105 [facility] Comment on above: Order Comment: Waive d Testing in the ED is performed under the ED CLIA certificate #[id number]. Result Comment: [email or web address] Performed By: #### L [id number] ####[facility] ([facility])[address] [place] [address] POTASSIUMon 06-30-2023 Potassium [Moles/Vol] 4.0 mmol/L Normal 3.5-5.1 [facility] Comment on above: Performed By: #### L [id number] ####[facility] ([facility])[address] [place] [address] PROTIME-INRon 06-30-2023 INR IN PPP BY COAGULATION ASSAY 1.21 High 0.90-1.10 [facility] Comment on above: Result Comment: ACCC P [...] CHEST 1995;108:231S-246S. Performed By: #### L [id number] ####[facility] ([facility])[address] [place] [address] PROTHROMBIN TIME (PT) IN PPP BY COAGULATION ASSAY 15.4 Seconds High 12.3-14.8 [facility] Comment on above: Performed By: #### L [id number] ####[facility] ([facility])[address] [place] [address] 30on 06-29-2023 30 Normal [facility] 30 Normal [facility] 30 Normal [facility] ANTI-XA (HEPARIN LEVEL)on HEPARIN UNFRACTIONATED (U/ML) IN PPP BY CHROMOGENIC METHOD 0.30 IU/mL Normal 0.3-0.7 [facility] Comment on above: Result Comment: [place] roxaban and Apixaban will interfere with the anti Xa assay used to monitor UFH and LMWH. Performed By: #### L [id number] ####[facility] ([facility])[address] [place] [address] HEPARIN UNFRACTIONATED (U/ML) IN PPP BY CHROMOGENIC METHOD 0.31 IU/mL Normal 0.3-0.7 [facility] Comment on above: Result Comment: [place] roxaban and Apixaban will interfere with the anti Xa assay used to monitor UFH and LMWH. Performed By: #### L [id number] ####[facility] ([facility])[address] [place] [address] BASIC METABOLIC PANELon 06-01 Anion gap [Moles/Vol] 10 mmol/L Normal 7-20 [facility] Comment on above: Performed By: #### L [id number] ####[facility] ([facility])[address] [place] [address] Calcium [Mass/Vol] 8.3 mg/dL Low 8.6-10.3 [facility] Comment on above: Performed By: #### L [id number] ####[facility] ([facility])[address] [place] [address] Chloride [Moles/Vol] 96 mmol/L Low 98-107 [facility] Comment on above: Performed By: #### L [id number] ####[facility] ([facility])[address] [place] [address] CO2 [Moles/Vol] 29 mmol/L Normal 21-31 [facility] Comment on above: Performed By: #### L [id number] ####[facility] ([facility])[address] [place] [address] Creatinine [Mass/Vol] 0.74 mg/dL Normal 0.70-1.30 [facility] Comment on above: Performed By: #### L [id number] ####[facility] ([facility])[address] [place] [address] GLOMERULAR FILTRATION RATE ML/MIN/1.73 SQ M.PREDICTED 110.4 mL/min/1.73m*2 Normal >60.0 [facility] Comment on above: Result Comment: The [facility]???s estimated glomerular filtration rate (eGFR) will no [...] of individuals. Performed By: #### L [id number] ####[facility] ([facility])[address] [place] [address] Glucose [Mass/Vol] 107 mg/dL High 70-100 [facility] Comment on above: Performed By: #### L [id number] ####[facility] ([facility])[address] [place] [address] Potassium [Moles/Vol] 4.3 mmol/L Normal 3.5-5.1 [facility] Comment on above: Performed By: #### L [id number] ####[facility] ([facility])[address] [place] [address] Sodium [Moles/Vol] 131 mmol/L Low 136-145 [facility] Comment on above: Performed By: #### L [id number] ####[facility] ([facility])[address] [place] [address] Urea nitrogen [Mass/Vol] 9 mg/dL Normal 7-25 [facility] Comment on above: Performed By: #### L [id number] ####[facility] ([facility])[address] [place] [address] UREA NITROGEN/CREATININE (MASS RATIO) IN SER/PLAS 12.2 Normal [facility] Comment on above: Performed By: #### L [id number] ####[facility] ([facility])[address] [place] [address] CBCon 06-29-2023 Erythrocyte distribution width (RBC) [Ratio] 15.8 % High 11.5-15.0 [facility] Comment on above: Performed By: #### L [id number] ####[facility] ([facility])[address] [place] [address] ERYTHROCYTE MEAN CORPUSCULAR HEMOGLOBIN CONCENTRATION (G/DL) BY AUTOMATED 33.6 g/dL Normal 32.0-35.0 [facility] Comment on above: Performed By: #### L [id number] ####[facility] ([facility])[address] [place] [address] Hematocrit (Bld) [Volume fraction] 23.5 % Low 39.0-55.0 [facility] Comment on above: Performed By: #### L [id number] ####[facility] ([facility])[address] [place] [address] Hemoglobin (Bld) [Mass/Vol] 7.9 g/dL Low 13.0-17.0 [facility] Comment on above: Performed By: #### L [id number] ####[facility] ([facility])[address] [place] [address] MCH (RBC) [Entitic mass] 29.5 pg Normal 27.0-33.0 [facility] Comment on above: Performed By: #### L [id number] ####[facility] ([facility])[address] [place] [address] MCV (RBC) [Entitic vol] 87.7 fL Normal 82.0-98.0 [facility] Comment on above: Performed By: #### L [id number] ####[facility] ([facility])[address] [place] [address] PLATELETS (10*3/UL) IN BLOOD AUTOMATED COUNT 161 10*3/uL Normal 150-400 [facility] Comment on above: Performed By: #### L [id number] ####[facility] ([facility])[address] [place] [address] RBC (Bld) [#/Vol] 2.68 10*6/uL Low 4.20-5.70 [facility] Comment on above: Performed By: #### L [id number] ####[facility] ([facility])[address] [place] [address] WBC (Bld) [#/Vol] 6.52 10*3/uL Normal 4.00-10.60 [facility] Comment on above: Performed By: #### L [id number] ####[facility] ([facility])[address] [place] [address] MAGNESIUMon 06-29-2023 Magnesium [Mass/Vol] 2.3 mg/dL Normal 1.9-2.7 [facility] Comment on above: Performed By: #### L [id number] ####[facility] [place] [address] Magnesium [Mass/Vol] 2.0 mg/dL Normal 1.9-2.7 [facility] Comment on above: Performed By: #### L [id number] ####[facility] ([facility])[address] [place] [address] NURSNOTEon 06-29-2023 NURSNOTE Normal [facility] PHOSPHORUSon 06-29-2023 Magnesium [Mass/Vol] 3.2 mg/dL Normal 2.5-5.0 [facility] Comment on above: Performed By: #### L [id number] ####[facility] ([facility])[address] [place] [address] POCT GLUCOSE METER UNSOLICIT ED RESULTSon 06-29-2023 Glucose [Mass/Vol] 129 mg/dL High 70-105 [facility] Comment on above: Order Comment: Waive d Testing in the ED is performed under the ED CLIA certificate #[id number]. Result Comment: [email or web address] Performed By: #### L [id number] ####[facility] ([facility])[address] [place] [address] Glucose [Mass/Vol] 108 mg/dL High 70-105 [facility] Comment on above: Order Comment: Waive d Testing in the ED is performed under the ED CLIA certificate #[id number]. Result Comment: [email or web address] Performed By: #### L [id number] ####[facility] ([facility])[address] [place] [address] Glucose [Mass/Vol] 142 mg/dL High 70-105 [facility] Comment on above: Order Comment: Waive d Testing in the ED is performed under the ED CLIA certificate #[id number]. Result Comment: [email or web address] Performed By: #### L [id number] ####[facility] [place] [address] Glucose [Mass/Vol] 136 mg/dL High 70-105 [facility] Comment on above: Order Comment: Waive d Testing in the ED is performed under the ED CLIA certificate #[id number]. Result Comment: [email or web address] Performed By: #### L [id number] ####[facility] ([employer])[address] [place] [address] POTASSIUMon 06-29-2023 Potassium [Moles/Vol] 4.3 mmol/L Normal 3.5-5.1 [facility] Comment on above: Performed By: #### L [id number] ####[facility] ([employer])[address] [place] [address] PROTIME-INRon 06-29-2023 INR IN PPP BY COAGULATION ASSAY 1.13 High 0.90-1.10 [facility] Comment on above: Result Comment: ACCC P [...] CHEST 1995;108:231S-246S. Performed By: #### L [id number] ####[facility] ([employer])[address] [place] [address] PROTHROMBIN TIME (PT) IN PPP BY COAGULATION ASSAY 14.5 Seconds Normal 12.3-14.8 [facility] Comment on above: Performed By: #### L [id number] ####[facility] ([employer])[address] [place] [address] 30on 06-28-2023 30 Normal [facility] ANTI-XA (HEPARIN LEVEL)on HEPARIN UNFRACTIONATED (U/ML) IN PPP BY CHROMOGENIC METHOD 0.25 IU/mL Low 0.3-0.7 [facility] Comment on above: Result Comment: [place] roxaban and Apixaban will interfere with the anti Xa assay used to monitor UFH and LMWH. Performed By: #### L [id number] ####[facility] [place] [address] HEPARIN UNFRACTIONATED (U/ML) IN PPP BY CHROMOGENIC METHOD 0.16 IU/mL Invalid Interpretation Code 0.3-0.7 [facility] Comment on above: Result Comment: [place] roxaban and Apixaban will interfere with the anti Xa assay used to monitor UFH and LMWH. Performed By: #### L [id number] ####[facility] ([facility])[address] [place] [address] HEPARIN UNFRACTIONATED (U/ML) IN PPP BY CHROMOGENIC METHOD <0.10 Invalid Interpretation Code 0.3-0.7 [facility] Comment on above: Order Comment: Check anti-Xa level every 6 hours while on heparin infusion, or per protocol. Result Comment: [place] roxaban and Apixaban will interfere with the anti Xa assay used to monitor UFH and LMWH. Performed By: #### L [id number] ####[facility] ([facility])[address] [place] [address] APTTon 06-28-2023 ACTIVATED PARTIAL THROMBOPLASTIN TIME IN PPP BY COAGULATION ASSAY 31.5 Seconds Normal 25.0-35.0 [facility] Comment on above: Order Comment: Basel ine aPTT before initiating heparin infusion. Result Comment: Clin ical significance of the APTT is questionable in the presence of heparin. Performed By: #### L [id number] ####[facility] [place] [address] BASIC METABOLIC PANELon 05-31 Anion gap [Moles/Vol] 14 mmol/L Normal 7-20 [facility] Comment on above: Performed By: #### L [id number] ####[facility] ([facility])[address] [place] [address] Calcium [Mass/Vol] 8.1 mg/dL Low 8.6-10.3 [facility] Comment on above: Performed By: #### L [id number] ####[facility] ([facility])[address] [place] [address] Chloride [Moles/Vol] 95 mmol/L Low 98-107 [facility] Comment on above: Performed By: #### L [id number] ####[facility] ([facility])[address] [place] [address] CO2 [Moles/Vol] 25 mmol/L Normal 21-31 [facility] Comment on above: Performed By: #### L [id number] ####[facility] [place] [address] Creatinine [Mass/Vol] 0.69 mg/dL Low 0.70-1.30 [facility] Comment on above: Performed By: #### L [id number] ####[facility] [place] [address] GLOMERULAR FILTRATION RATE ML/MIN/1.73 SQ M.PREDICTED 112.7 mL/min/1.73m*2 Normal >60.0 [facility] Comment on above: Result Comment: [facility]???s estimated glomerular filtration rate (eGFR) will no [...] of individuals. Performed By: #### L [id number] ####[facility] [place] [address] Glucose [Mass/Vol] 103 mg/dL High 70-100 [facility] Comment on above: Performed By: #### L [id number] ####[facility] ([facility])[address] [place] [address] Potassium [Moles/Vol] 3.9 mmol/L Normal 3.5-5.1 [facility] Comment on above: Performed By: #### L [id number] ####[facility] ([facility])[address] [place] [address] Sodium [Moles/Vol] 130 mmol/L Low 136-145 [facility] Comment on above: Performed By: #### L [id number] ####[facility] ([facility])[address] [place] [address] Urea nitrogen [Mass/Vol] 10 mg/dL Normal 7-25 [facility] Comment on above: Performed By: #### L [id number] ####[facility] ([facility])[address] [place] [address] UREA NITROGEN/CREATININE (MASS RATIO) IN SER/PLAS 14.5 Normal [facility] Comment on above: Performed By: #### L [id number] ####[facility] ([facility])[address] [place] [address] Anion gap [Moles/Vol] 8 mmol/L Normal 7-20 [facility] Comment on above: Performed By: #### L [id number] ####[facility] ([facility])[address] [place] [address] Calcium [Mass/Vol] 8.1 mg/dL Low 8.6-10.3 [facility] Comment on above: Performed By: #### L [id number] ####[facility] ([facility])[address] [place] [address] Chloride [Moles/Vol] 98 mmol/L Normal 98-107 [facility] Comment on above: Performed By: #### L [id number] ####[facility] ([facility])[address] [place] [address] CO2 [Moles/Vol] 29 mmol/L Normal 21-31 [facility] Comment on above: Performed By: #### L [id number] ####[facility] ([facility])[address] [place] [address] Creatinine [Mass/Vol] 0.73 mg/dL Normal 0.70-1.30 [facility] Comment on above: Performed By: #### L [id number] ####[facility] ([facility])[address] [place] [address] GLOMERULAR FILTRATION RATE ML/MIN/1.73 SQ M.PREDICTED 110.8 mL/min/1.73m*2 Normal >60.0 [facility] Comment on above: Result Comment: The [facility]???s estimated glomerular filtration rate (eGFR) will no [...] of individuals. Performed By: #### L [id number] ####[facility] ([facility])[address] [facility] [place] [address] Glucose [Mass/Vol] 118 mg/dL High 70-100 [facility] Comment on above: Performed By: #### L [id number] ####[facility] ([facility])[address] [place] [address] Potassium [Moles/Vol] 3.8 mmol/L Normal 3.5-5.1 [facility] Comment on above: Performed By: #### L [id number] ####[facility] ([facility])[address] [place] [address] Sodium [Moles/Vol] 131 mmol/L Low 136-145 [facility] Comment on above: Performed By: #### L [id number] ####[facility] ([facility])[address] [address] Urea nitrogen [Mass/Vol] 10 mg/dL Normal 7-25 [facility] Comment on above: Performed By: #### L [id number] ####[facility] [place] [address] UREA NITROGEN/CREATININE (MASS RATIO) IN SER/PLAS 13.7 Normal [facility] Comment on above: Performed By: #### L [id number] ####[facility] [place] [address] CBCon 06-28-2023 Erythrocyte distribution width (RBC) [Ratio] 15.6 % High 11.5-15.0 [facility] Comment on above: Performed By: #### L [id number] ####[facility] ([facility])[address] [place] [address] ERYTHROCYTE MEAN CORPUSCULAR HEMOGLOBIN CONCENTRATION (G/DL) BY AUTOMATED 33.8 g/dL Normal 32.0-35.0 [facility] Comment on above: Performed By: #### L [id number] ####[facility] ([facility])[address] [place], [place] [address] Hematocrit (Bld) [Volume fraction] 20.4 % Low 39.0-55.0 [facility] Comment on above: Performed By: #### L [id number] ####[facility] ([facility])[address] [place], [place] [address] Hemoglobin (Bld) [Mass/Vol] 6.9 g/dL Low 13.0-17.0 [facility] Comment on above: Performed By: #### L [id number] ####[facility] [place], [place] [address] IMMATURE PLATELET FRACTION % 5.6 % Normal 0.8-6.3 [facility] Comment on above: Performed By: #### L [id number] ####[facility] [address] MCH (RBC) [Entitic mass] 29.5 pg Normal 27.0-33.0 [facility] Comment on above: Performed By: #### L [id number] ####[facility] ([facility])[address] [place] [address] MCV (RBC) [Entitic vol] 87.2 fL Normal 82.0-98.0 [facility] Comment on above: Performed By: #### L [id number] ####[facility] ([facility])[address] [place] [address] PLATELETS (10*3/UL) IN BLOOD AUTOMATED COUNT 127 10*3/uL Low 150-400 [facility] Comment on above: Performed By: #### L [id number] ####[facility] ([facility])[address] [place] [address] RBC (Bld) [#/Vol] 2.34 10*6/uL Low 4.20-5.70 [facility] Comment on above: Performed By: #### L [id number] ####[facility] ([facility])[address] [place] [address] WBC (Bld) [#/Vol] 6.57 10*3/uL Normal 4.00-10.60 [facility] Comment on above: Performed By: #### L [id number] ####[facility] ([facility])[address] [place] [address] CKon 06-28-2023 CREATINE KINASE (U/L) IN SER/PLAS 560.0 U/L High 30.0-223.0 [facility] Comment on above: Performed By: #### L [id number] ####[facility] ([facility])[address] [place] [address] CONSULTon 06-28-2023 CONSULT Normal [facility] MAGNESIUMon 06-28-2023 Magnesium [Mass/Vol] 1.9 mg/dL Normal 1.9-2.7 [facility] Comment on above: Performed By: #### L [id number] ####[facility] ([facility])[address] [place] [address] PLATELET COUNTon 06-28-2023 IMMATURE PLATELET FRACTION % 6.1 % Normal 0.8-6.3 [facility] Comment on above: Performed By: #### L [id number] ####[facility] ([facility])[address] [place] [address] PLATELETS (10*3/UL) IN BLOOD AUTOMATED COUNT 126 10*3/uL Low 150-400 [facility] Comment on above: Performed By: #### L [id number] ####[facility] ([facility])[address] [place] [address] POCT GLUCOSE METER UNSOLICIT ED RESULTSon 06-28-2023 Glucose [Mass/Vol] 95 mg/dL Normal 70-105 [facility] Comment on above: Order Comment: Waive d Testing in the ED is performed under the ED CLIA certificate #[id number]. Result Comment: [email or web address] Performed By: #### L [id number] ####[facility] ([facility])[address] [place] [address] Glucose [Mass/Vol] 118 mg/dL High 70-105 [facility] Comment on above: Order Comment: Waive d Testing in the ED is performed under the ED CLIA certificate #[id number]. Result Comment: rsuz gabo Performed By: #### L [id number] ####[facility] ([facility])[address] [place] [address] Glucose [Mass/Vol] 111 mg/dL High 70-105 [facility] Comment on above: Order Comment: Waive d Testing in the ED is performed under the ED CLIA certificate #[id number]. Result Comment: cgil [email or web address] Performed By: #### L [id number] ####[facility] ([facility])[address] [place] [address] Glucose [Mass/Vol] 160 mg/dL High 70-105 [facility] Comment on above: Order Comment: Waive d Testing in the ED is performed under the ED CLIA certificate #[id number]. Result Comment: lui contreras Performed By: #### L [id number] ####[facility] ([employer])[address] [place] [address] PROTIME-INRon 06-28-2023 INR IN PPP BY COAGULATION ASSAY 1.16 High 0.90-1.10 [facility] Comment on above: Result Comment: ACCC P [...] CHEST 1995;108:231S-246S. Performed By: #### L [id number] ####[facility] ([employer])[address] [place] [address] PROTHROMBIN TIME (PT) IN PPP BY COAGULATION ASSAY 14.8 Seconds Normal 12.3-14.8 [facility] Comment on above: Performed By: #### L [id number] ####[facility] ([employer])[address] [place] [address] 30on 06-27-2023 30 Normal [facility] 30 Normal [facility] 30 Normal [facility] APTTon 06-27-2023 ACTIVATED PARTIAL THROMBOPLASTIN TIME IN PPP BY COAGULATION ASSAY 35.5 Seconds High 25.0-35.0 [facility] Comment on above: Result Comment: Clin ical significance of the APTT is questionable in the presence of heparin. Performed By: #### L [id number] ####[facility] ([facility])[address] [facility] [place] [address] BASIC METABOLIC PANELon 03- Anion gap [Moles/Vol] 9 mmol/L Normal 7-20 [facility] Comment on above: Performed By: #### L [id number] ####[facility] ([facility])[address] [facility] [address] Calcium [Mass/Vol] 8.3 mg/dL Low 8.6-10.3 [facility] Comment on above: Performed By: #### L [id number] ####[facility] ([facility])[address] [facility] [address] Chloride [Moles/Vol] 104 mmol/L Normal 98-107 [facility] Comment on above: Performed By: #### L [id number] ####[facility] ([facility])[address] [facility] [address] CO2 [Moles/Vol] 26 mmol/L Normal 21-31 [facility] Comment on above: Performed By: #### L [id number] ####[facility] ([facility])[address] [place] [address] Creatinine [Mass/Vol] 0.78 mg/dL Normal 0.70-1.30 [facility] Comment on above: Performed By: #### L [id number] ####[facility] ([facility])[address] [place] [address] GLOMERULAR FILTRATION RATE ML/MIN/1.73 SQ M.PREDICTED 108.6 mL/min/1.73m*2 Normal >60.0 [facility] Comment on above: Result Comment: The [facility]???s estimated glomerular filtration rate (eGFR) will no [...] of individuals. Performed By: #### L [id number] ####[facility] ([facility])[address] [place] [address] Glucose [Mass/Vol] 117 mg/dL High 70-100 [facility] Comment on above: Performed By: #### L [id number] ####[facility] ([facility])[address] [place] [address] Potassium [Moles/Vol] 4.9 mmol/L Normal 3.5-5.1 [facility] Comment on above: Performed By: #### L [id number] ####[facility] ([facility])[address] [place] [address] Sodium [Moles/Vol] 134 mmol/L Low 136-145 [facility] Comment on above: Performed By: #### L [id number] ####[facility] ([facility])[address] [place] [address] Urea nitrogen [Mass/Vol] 10 mg/dL Normal 7-25 [facility] Comment on above: Performed By: #### L [id number] ####[facility] ([facility])[address] [place] [address] UREA NITROGEN/CREATININE (MASS RATIO) IN SER/PLAS 12.8 Normal [facility] Comment on above: Performed By: #### L [id number] ####[facility] ([facility])[address] [place] [address] CBCon 06-27-2023 Erythrocyte distribution width (RBC) [Ratio] 15.9 % High 11.5-15.0 [facility] Comment on above: Performed By: #### L [id number] ####[facility] ([facility])[address] [place] [address] ERYTHROCYTE MEAN CORPUSCULAR HEMOGLOBIN CONCENTRATION (G/DL) BY AUTOMATED 34.4 g/dL Normal 32.0-35.0 [facility] Comment on above: Performed By: #### L [id number] ####[facility] [place] [address] Hematocrit (Bld) [Volume fraction] 21.8 % Low 39.0-55.0 [facility] Comment on above: Performed By: #### L [id number] ####[facility] ([facility])[address] [place] [address] Hemoglobin (Bld) [Mass/Vol] 7.5 g/dL Low 13.0-17.0 [facility] Comment on above: Performed By: #### L [id number] ####[facility] ([facility])[address] [place] [address] IMMATURE PLATELET FRACTION % 4.8 % Normal 0.8-6.3 [facility] Comment on above: Performed By: #### L [id number] ####[facility] ([facility])[address] [place] [address] MCH (RBC) [Entitic mass] 30.2 pg Normal 27.0-33.0 [facility] Comment on above: Performed By: #### L [id number] ####[facility] ([facility])[address] [place] [address] MCV (RBC) [Entitic vol] 87.9 fL Normal 82.0-98.0 [facility] Comment on above: Performed By: #### L [id number] ####[facility] ([facility])[address] [place] [address] PLATELETS (10*3/UL) IN BLOOD AUTOMATED COUNT 116 10*3/uL Low 150-400 [facility] Comment on above: Performed By: #### L [id number] ####[facility] [place] [address] RBC (Bld) [#/Vol] 2.48 10*6/uL Low 4.20-5.70 [facility] Comment on above: Performed By: #### L [id number] ####[facility] ([facility])[address] [place] [address] WBC (Bld) [#/Vol] 5.34 10*3/uL Normal 4.00-10.60 [facility] Comment on above: Performed By: #### L [id number] ####[facility] ([facility])[address] [place] [address] CONSULTon 06-27-2023 CONSULT Normal [facility] MAGNESIUMon 06-27-2023 Magnesium [Mass/Vol] 2.0 mg/dL Normal 1.9-2.7 [facility] Comment on above: Performed By: #### L [id number] ####[facility] ([facility])[address] [place] [address] PHOSPHORUSon 06-27-2023 Magnesium [Mass/Vol] 4.2 mg/dL Normal 2.5-5.0 [facility] Comment on above: Performed By: #### L [id number] ####[facility] ([facility])[address] [place] [address] POCT GLUCOSE METER UNSOLICIT ED RESULTSon 06-27-2023 Glucose [Mass/Vol] 154 mg/dL High 70-105 [facility] Comment on above: Order Comment: Waive d Testing in the ED is performed under the ED CLIA certificate #[id number]. Result Comment: mer jha Performed By: #### L [id number] ####[facility] ([facility])[address] [place] [address] Glucose [Mass/Vol] 114 mg/dL High 70-105 [facility] Comment on above: Order Comment: Waive d Testing in the ED is performed under the ED CLIA certificate #[id number]. Result Comment: mer jha Performed By: #### L [id number] ####[facility] ([facility])[address] [place] [address] Glucose [Mass/Vol] 108 mg/dL High 70-105 [facility] Comment on above: Order Comment: Waive d Testing in the ED is performed under the ED CLIA certificate #[id number]. Result Comment: [email or web address] [email or web address] Performed By: #### L [id number] ####[facility] [place] [address] Glucose [Mass/Vol] 112 mg/dL High 70-105 [facility] Comment on above: Order Comment: Waive d Testing in the ED is performed under the ED CLIA certificate #[id number]. Result Comment: mmcc gabo Performed By: #### L [id number] ####[facility] ([facility])[address] [place] [address] Glucose [Mass/Vol] 111 mg/dL High 70-105 [facility] Comment on above: Order Comment: Waive d Testing in the ED is performed under the ED CLIA certificate #[id number]. Result Comment: mmcc gabo Performed By: #### L [id number] ####[facility] ([facility])[address] [place] [address] Glucose [Mass/Vol] 120 mg/dL High 70-105 [facility] Comment on above: Order Comment: Waive d Testing in the ED is performed under the ED CLIA certificate #[id number]. Result Comment: mmcc gabo Performed By: #### L [id number] ####[facility] ([facility])[address] [place] [address] Glucose [Mass/Vol] 128 mg/dL High 70-105 [facility] Comment on above: Order Comment: Waive d Testing in the ED is performed under the ED CLIA certificate #[id number]. Result Comment: mmcc gabo Performed By: #### L [id number] ####[facility] ([facility])[address] [place] [address] Glucose [Mass/Vol] 132 mg/dL High 70-105 [facility] Comment on above: Order Comment: Waive d Testing in the ED is performed under the ED CLIA certificate #[id number]. Result Comment: mmcc gabo Performed By: #### L [id number] ####[facility] ([facility])[address] [place] [address] PROTIME-INRon 06-27-2023 INR IN PPP BY COAGULATION ASSAY 1.30 High 0.90-1.10 [facility] Comment on above: Order Comment: On ar [...] CHEST 1995;108:231S-246S. Performed By: #### L [id number] ####[facility] ([facility])[address] [place] [address] PROTHROMBIN TIME (PT) IN PPP BY COAGULATION ASSAY 16.3 Seconds High 12.3-14.8 [facility] Comment on above: Order Comment: On ar rival to SICU Performed By: #### L [id number] ####[facility] ([facility])[address] [place] [address] 30on 06-26-2023 30 Normal [facility] 30 Normal [facility] ANESon 06-26-2023 ANES Normal [facility] APTTon 06-26-2023 ACTIVATED PARTIAL THROMBOPLASTIN TIME IN PPP BY COAGULATION ASSAY 30.1 Seconds Normal 25.0-35.0 [facility] Comment on above: Result Comment: Clin ical significance of the APTT is questionable in the presence of heparin. Performed By: #### L [id number] ####[facility] ([facility])[address] [place] [address] ACTIVATED PARTIAL THROMBOPLASTIN TIME IN PPP BY COAGULATION ASSAY 29.1 Seconds Normal 25.0-35.0 [facility] Comment on above: Order Comment: Pre-o p diagnosis:Aortic valve disorder [I35.9] Result Comment: Clin ical significance of the APTT is questionable in the presence of heparin. Performed By: #### L [id number] ####[facility] ([facility])[address] [place] [address] ACTIVATED PARTIAL THROMBOPLASTIN TIME IN PPP BY COAGULATION ASSAY 31.8 Seconds Normal 25.0-35.0 [facility] Comment on above: Result Comment: Clin ical significance of the APTT is questionable in the presence of heparin. Performed By: #### L [id number] ####[facility] ([facility])[address] [place] [address] ARTERIAL BLOOD GAS WITH IONI ZED CALCIUMon 06-26-2023 Base excess Calc (Bld) [Moles/Vol] -3.3000 mmol/L Low -2.0-3.0 [facility] Comment on above: Performed By: #### L [id number] ####[facility] [id number] [place] [address] [place] CALCIUM IONIZED (MMOL/L) IN BLOOD 1.09 mmol/L Low 1.15-1.33 [facility] Comment on above: Performed By: #### L [id number] ####[facility] [id number] [place] [address] [place] CO2 (Bld) [Partial pressure] 35 mm[Hg] Normal 35-48 [facility] Comment on above: Performed By: #### L [id number] ####[facility] [id number] [place] [address] [place] FIO2 40 % Normal [facility] Comment on above: Performed By: #### L [id number] ####[facility] [id number] [place], [place] [address] HCO3 (Bld) [Moles/Vol] 21.2 mmol/L Normal 21.0-28.0 [facility] Comment on above: Performed By: #### L [id number] ####[facility] [id number] [place] [address] [facility] Oxygen (Bld) [Partial pressure] 118 mm[Hg] High 83-100 [facility] Comment on above: Performed By: #### L [id number] ####[facility] [id number] [place], [place] [address] OXYGEN SATURATION (%) IN ARTERIAL BLOOD 98.8 % High 94.0-98.0 [facility] Comment on above: Performed By: #### L [id number] ####[facility] [id number] [address] PEEP 6 cmH2O Normal [facility] Comment on above: Performed By: #### L [id number] ####[facility] RESP[facility] [id number] [place] [address] pH (Bld) 7.39 [pH] Normal 7.35-7.45 [facility] Comment on above: Performed By: #### L [id number] ####[facility] RESPIR[facility] [id number] [place] [address] PRESSURE SUPPORT 12 Normal [facility] Comment on above: Performed By: #### L [id number] ####[facility] RESPIR[facility] [id number] [place], [place] [address] SOURCE OF OXYGEN Bi-PAP Normal [facility] Comment on above: Performed By: #### L [id number] ####[facility] RES[facility] [id number] [address] Base excess Calc (Bld) [Moles/Vol] -5.8000 mmol/L Low -2.0-3.0 [facility] Comment on above: Performed By: #### L [id number] ####[facility] [id number] [place] [address] CALCIUM IONIZED (MMOL/L) IN BLOOD 1.19 mmol/L Normal 1.15-1.33 [facility] Comment on above: Performed By: #### L [id number] ####[facility] RES[facility] [id number] [address] CO2 (Bld) [Partial pressure] 44 mm[Hg] Normal 35-48 [facility] Comment on above: Performed By: #### L [id number] ####[facility] [id number] [address] FIO2 40 % Normal [facility] Comment on above: Performed By: #### L [id number] ####[facility] [id number] [address] HCO3 (Bld) [Moles/Vol] 20.7 mmol/L Low 21.0-28.0 [facility] Comment on above: Performed By: #### L [id number] ####[facility] RES[facility] [id number] [address] Oxygen (Bld) [Partial pressure] 102 mm[Hg] High 83-100 [facility] Comment on above: Performed By: #### L [id number] ####[facility] [id number] [address] OXYGEN SATURATION (%) IN ARTERIAL BLOOD 99.5 % High 94.0-98.0 [facility] Comment on above: Performed By: #### L [id number] ####[facility] RES[facility] [id number] [address] PEEP 6 cmH2O Normal [facility] Comment on above: Performed By: #### L [id number] ####[facility] RES[facility] [id number] [address] pH (Bld) 7.28 [pH] Low 7.35-7.45 [facility] Comment on above: Performed By: #### L [id number] ####[facility] RESPIR[facility] [id number] [place] [address] PRESSURE SUPPORT 12 Normal [facility] Comment on above: Performed By: #### L [id number] ####[facility] RESP[facility] [id number] [place] [address] [place] SOURCE OF OXYGEN Bi-PAP Normal [facility] Comment on above: Performed By: #### L [id number] ####[facility] RES[facility] [id number] [place] [address] [place] BASIC METABOLIC PANELon 03-2 Anion gap [Moles/Vol] 10 mmol/L Normal - [facility] Comment on above: Performed By: #### L [id number] ####[facility] ([facility])[address] [place] [address] Calcium [Mass/Vol] 8.1 mg/dL Low 8.6-10.3 [facility] Comment on above: Performed By: #### L [id number] ####[facility] ([facility])[address] [place] [address] Chloride [Moles/Vol] 108 mmol/L High 98-107 [facility] Comment on above: Performed By: #### L [id number] ####[facility] ([facility])[address] [place] [address] CO2 [Moles/Vol] 24 mmol/L Normal - [facility] Comment on above: Performed By: #### L [id number] ####[facility] ([facility])[address] [place] [address] Creatinine [Mass/Vol] 0.72 mg/dL Normal 0.70-1.30 [facility] Comment on above: Performed By: #### L [id number] ####[facility] ([facility])[address] [place] [address] GLOMERULAR FILTRATION RATE ML/MIN/1.73 SQ M.PREDICTED 111.3 mL/min/1.73m*2 Normal >60.0 [facility] Comment on above: Result Comment: The [facility]???s estimated glomerular filtration rate (eGFR) will no [...] of individuals. Performed By: #### L [id number] ####[facility] ([facility])[address] [facility] [place] [address] Glucose [Mass/Vol] 151 mg/dL High 70-100 [facility] Comment on above: Performed By: #### L [id number] ####[facility] ([facility])[address] [facility] [place] [address] Potassium [Moles/Vol] 4.1 mmol/L Normal 3.5-5.1 [facility] Comment on above: Performed By: #### L [id number] ####[facility] ([facility])[address] [facility] [place] [address] Sodium [Moles/Vol] 138 mmol/L Normal 136-145 [facility] Comment on above: Performed By: #### L [id number] ####[facility] ([facility])[address] [facility] [facility] [place] [address] Urea nitrogen [Mass/Vol] 11 mg/dL Normal 7-25 [facility] Comment on above: Performed By: #### L [id number] ####[facility] ([facility])[address] [facility] [facility] [address] UREA NITROGEN/CREATININE (MASS RATIO) IN SER/PLAS 15.3 Normal [facility] Comment on above: Performed By: #### L [id number] ####[facility] ([facility])[address] [facility] [facility] [place] [address] Anion gap [Moles/Vol] 14 mmol/L Normal 7-20 [facility] Comment on above: Order Comment: Pre-o p diagnosis:Aortic valve disorder [I35.9] Performed By: #### L [id number] ####[facility] ([facility])[address] [place] [address] Calcium [Mass/Vol] 7.9 mg/dL Low 8.6-10.3 [facility] Comment on above: Order Comment: Pre-o p diagnosis:Aortic valve disorder [I35.9] Performed By: #### L [id number] ####[facility] ([facility])[address] [facility] [address] Chloride [Moles/Vol] 107 mmol/L Normal 98-107 [facility] Comment on above: Order Comment: Pre-o p diagnosis:Aortic valve disorder [I35.9] Performed By: #### L [id number] ####[facility] ([facility])[address] [facility] [address] CO2 [Moles/Vol] 21 mmol/L Normal 21-31 [facility] Comment on above: Order Comment: Pre-o p diagnosis:Aortic valve disorder [I35.9] Performed By: #### L [id number] ####[facility] ([facility])[address] [place] [address] Creatinine [Mass/Vol] 0.76 mg/dL Normal 0.70-1.30 [facility] Comment on above: Order Comment: Pre-o p diagnosis:Aortic valve disorder [I35.9] Performed By: #### L [id number] ####[facility] ([facility])[address] [place] [address] GLOMERULAR FILTRATION RATE ML/MIN/1.73 SQ M.PREDICTED 109.5 mL/min/1.73m*2 Normal >60.0 [facility] Comment on above: Order Comment: Pre-o p diagnosis:Aortic valve disorder [I35.9] Result Comment: The [facility]???s estimated glomerular filtration rate (eGFR) will no [...] of individuals. Performed By: #### L [id number] ####[facility] ([facility])[address] [place] [address] Glucose [Mass/Vol] 194 mg/dL High 70-100 [facility] Comment on above: Order Comment: Pre-o p diagnosis:Aortic valve disorder [I35.9] Performed By: #### L [id number] ####[facility] ([facility])[address] [place] [address] Potassium [Moles/Vol] 3.9 mmol/L Normal 3.5-5.1 [facility] Comment on above: Order Comment: Pre-o p diagnosis:Aortic valve disorder [I35.9] Performed By: #### L [id number] ####[facility] ([facility])[address] [place] [address] Sodium [Moles/Vol] 138 mmol/L Normal 136-145 [facility] Comment on above: Order Comment: Pre-o p diagnosis:Aortic valve disorder [I35.9] Performed By: #### L [id number] ####[facility] ([facility])[address] [place] [address] Urea nitrogen [Mass/Vol] 11 mg/dL Normal 7-25 [facility] Comment on above: Order Comment: Pre-o p diagnosis:Aortic valve disorder [I35.9] Performed By: #### L [id number] ####[facility] ([facility])[address] [facility] [place] [address] UREA NITROGEN/CREATININE (MASS RATIO) IN SER/PLAS 14.5 Normal [facility] Comment on above: Order Comment: Pre-o p diagnosis:Aortic valve disorder [I35.9] Performed By: #### L [id number] ####[facility] ([facility])[address] [place] [address] CBCon 06-26-2023 Erythrocyte distribution width (RBC) [Ratio] 15.5 % High 11.5-15.0 [facility] Comment on above: Performed By: #### L [id number] ####[facility] ([facility])[address] [place] [address] ERYTHROCYTE MEAN CORPUSCULAR HEMOGLOBIN CONCENTRATION (G/DL) BY AUTOMATED 34.0 g/dL Normal 32.0-35.0 [facility] Comment on above: Performed By: #### L [id number] ####[facility] ([facility])[address] [place] [address] Hematocrit (Bld) [Volume fraction] 29.4 % Low 39.0-55.0 [facility] Comment on above: Performed By: #### L [id number] ####[facility] ([facility])[address] [place] [address] Hemoglobin (Bld) [Mass/Vol] 10.0 g/dL Low 13.0-17.0 [facility] Comment on above: Performed By: #### L [id number] ####[facility] ([facility])[address] [place] [address] IMMATURE PLATELET FRACTION % 3.8 % Normal 0.8-6.3 [facility] Comment on above: Performed By: #### L [id number] ####[facility] ([facility])[address] [place] [address] MCH (RBC) [Entitic mass] 29.6 pg Normal 27.0-33.0 [facility] Comment on above: Performed By: #### L [id number] ####[facility] ([facility])[address] [place] [address] MCV (RBC) [Entitic vol] 87.0 fL Normal 82.0-98.0 [facility] Comment on above: Performed By: #### L [id number] ####[facility] ([facility])[address] [place] [address] PLATELETS (10*3/UL) IN BLOOD AUTOMATED COUNT 108 10*3/uL Low 150-400 [facility] Comment on above: Performed By: #### L [id number] ####[facility] ([facility])[address] [place] [address] RBC (Bld) [#/Vol] 3.38 10*6/uL Low 4.20-5.70 [facility] Comment on above: Performed By: #### L [id number] ####[facility] ([facility])[address] [place] [address] WBC (Bld) [#/Vol] 6.87 10*3/uL Normal 4.00-10.60 [facility] Comment on above: Performed By: #### L [id number] ####[facility] ([facility])[address] [place] [address] Erythrocyte distribution width (RBC) [Ratio] 15.3 % High 11.5-15.0 [facility] Comment on above: Order Comment: Pre-o p diagnosis:Aortic valve disorder [I35.9] Performed By: #### L [id number] ####[facility] ([facility])[address] [place] [address] ERYTHROCYTE MEAN CORPUSCULAR HEMOGLOBIN CONCENTRATION (G/DL) BY AUTOMATED 34.5 g/dL Normal 32.0-35.0 [facility] Comment on above: Order Comment: Pre-o p diagnosis:Aortic valve disorder [I35.9] Performed By: #### L [id number] ####[facility] ([facility])[address] [place] [address] Hematocrit (Bld) [Volume fraction] 29.3 % Low 39.0-55.0 [facility] Comment on above: Order Comment: Pre-o p diagnosis:Aortic valve disorder [I35.9] Performed By: #### L [id number] ####[facility] ([facility])[address] [place] [address] Hemoglobin (Bld) [Mass/Vol] 10.1 g/dL Low 13.0-17.0 [facility] Comment on above: Order Comment: Pre-o p diagnosis:Aortic valve disorder [I35.9] Performed By: #### L [id number] ####[facility] ([facility])[address] [place] [address] IMMATURE PLATELET FRACTION % 4.1 % Normal 0.8-6.3 [facility] Comment on above: Order Comment: Pre-o p diagnosis:Aortic valve disorder [I35.9] Performed By: #### L [id number] ####[facility] ([facility])[address] [place] [address] MCH (RBC) [Entitic mass] 29.9 pg Normal 27.0-33.0 [facility] Comment on above: Order Comment: Pre-o p diagnosis:Aortic valve disorder [I35.9] Performed By: #### L [id number] ####[facility] ([facility])[address] [place] [address] MCV (RBC) [Entitic vol] 86.7 fL Normal 82.0-98.0 [facility] Comment on above: Order Comment: Pre-o p diagnosis:Aortic valve disorder [I35.9] Performed By: #### L [id number] ####[facility] ([facility])[address] [place] [address] PLATELETS (10*3/UL) IN BLOOD AUTOMATED COUNT 135 10*3/uL Low 150-400 [facility] Comment on above: Order Comment: Pre-o p diagnosis:Aortic valve disorder [I35.9] Performed By: #### L [id number] ####[facility] ([facility])[address] [place] [address] RBC (Bld) [#/Vol] 3.38 10*6/uL Low 4.20-5.70 [facility] Comment on above: Order Comment: Pre-o p diagnosis:Aortic valve disorder [I35.9] Performed By: #### L [id number] ####[facility] ([facility])[address] [place] [address] WBC (Bld) [#/Vol] 9.24 10*3/uL Normal 4.00-10.60 [facility] Comment on above: Order Comment: Pre-o p diagnosis:Aortic valve disorder [I35.9] Performed By: #### L [id number] ####[facility] ([facility])[address] [place] [address] CBC WITH AUTO DIFFERENTIALon 06-26-2023 Basophils (Bld) [#/Vol] 0.04 10*3/uL Normal 0.00-0.20 [facility] Comment on above: Performed By: #### L [id number] ####[facility] ([facility])[address] [place] [address] Basophils/100 WBC (Bld) 0.8 % Normal 0.0-1.0 [facility] Comment on above: Performed By: #### L [id number] ####[facility] ([facility])[address] [place] [address] Eosinophils (Bld) [#/Vol] 0.28 10*3/uL Normal 0.00-0.50 [facility] Comment on above: Performed By: #### L [id number] ####[facility] ([facility])[address] [place] [address] Eosinophils/100 WBC (Bld) 5.9 % Normal 0.0-6.0 [facility] Comment on above: Performed By: #### L [id number] ####[facility] ([facility])[address] [place] [address] Erythrocyte distribution width (RBC) [Ratio] 15.9 % High 11.5-15.0 [facility] Comment on above: Performed By: #### L [id number] ####[facility] ([facility])[address] [place] [address] ERYTHROCYTE MEAN CORPUSCULAR HEMOGLOBIN CONCENTRATION (G/DL) BY AUTOMATED 33.7 g/dL Normal 32.0-35.0 [facility] Comment on above: Performed By: #### L [id number] ####[facility] ([facility])[address] [place] [address] Hematocrit (Bld) [Volume fraction] 32.6 % Low 39.0-55.0 [facility] Comment on above: Performed By: #### L [id number] ####[facility] ([facility])[address] [place] [address] Hemoglobin (Bld) [Mass/Vol] 11.0 g/dL Low 13.0-17.0 [facility] Comment on above: Performed By: #### L [id number] ####[facility] ([facility])[address] [place] [address] Immature granulocytes (Bld) [#/Vol] 0.01 10*3/uL Normal 0.00-0.20 [facility] Comment on above: Performed By: #### L [id number] ####[facility] ([facility])[address] [place] [address] Immature granulocytes/100 WBC (Bld) 0.2 % Normal 0.0-1.0 [facility] Comment on above: Performed By: #### L [id number] ####[facility] ([facility])[address] [place] [address] Lymphocytes (Bld) [#/Vol] 0.86 10*3/uL Low 1.20-4.00 [facility] Comment on above: Performed By: #### L [id number] ####[facility] ([facility])[address] [place] [address] Lymphocytes/100 WBC (Bld) 18.3 % Low 20.0-45.0 [facility] Comment on above: Performed By: #### L [id number] ####[facility] ([facility])[address] [place] [address] MCH (RBC) [Entitic mass] 29.4 pg Normal 27.0-33.0 [facility] Comment on above: Performed By: #### L [id number] ####[facility] ([facility])[address] [place] [address] MCV (RBC) [Entitic vol] 87.2 fL Normal 82.0-98.0 [facility] Comment on above: Performed By: #### L [id number] ####[facility] ([facility])[address] [place] [address] Monocytes (Bld) [#/Vol] 0.50 10*3/uL Normal 0.10-1.00 [facility] Comment on above: Performed By: #### L [id number] ####[facility] ([facility])[address] [place] [address] Monocytes/100 WBC (Bld) 10.6 % Normal 5.0-12.0 [facility] Comment on above: Performed By: #### L [id number] ####[facility] ([facility])[address] [place] [address] Neutrophils (Bld) [#/Vol] 3.02 10*3/uL Normal 1.60-7.60 [facility] Comment on above: Performed By: #### L [id number] ####[facility] ([facility])[address] [place] [address] Neutrophils/100 WBC (Bld) 64.2 % Normal 40.0-72.0 [facility] Comment on above: Performed By: #### L [id number] ####[facility] ([facility])[address] [place] [address] NRBC (PER 100 WBCS) BY AUTOMATED COUNT 0.0 % Normal 0 [facility] Comment on above: Performed By: #### L [id number] ####[facility] ([facility])[address] [place] [address] PLATELETS (10*3/UL) IN BLOOD AUTOMATED COUNT 159 10*3/uL Normal 150-400 [facility] Comment on above: Performed By: #### L [id number] ####[facility] ([facility])[address] [place] [address] RBC (Bld) [#/Vol] 3.74 10*6/uL Low 4.20-5.70 [facility] Comment on above: Performed By: #### L [id number] ####[facility] ([facility])[address] [place] [address] WBC (Bld) [#/Vol] 4.71 10*3/uL Normal 4.00-10.60 [facility] Comment on above: Performed By: #### L [id number] ####[facility] ([facility])[address] [facility] [place] [address] CO-OXIMETRYon 06-26-2023 CARBOXYHEMOGLOBIN/HE MOGLOBIN TOTAL % IN BLOOD 2.3 % Normal [facility] Comment on above: Performed By: #### L [id number] ####[facility] RESPIRATORY [id number] [place] [address] [facility] Hemoglobin (Bld) [Mass/Vol] 9.5 g/dL Normal [facility] Comment on above: Performed By: #### L [id number] ####[facility] RESPIRATORY [id number] [place] [facility] [place] [address] [place] METHEMOGLOBIN/100 IN BLOOD 0.5 % Normal 0.0-1.5 [facility] Comment on above: Performed By: #### L [id number] ####[facility] RESPIRATORY [id number] [place] [address] [place] Oxygen saturation in Blood 61.9 % Normal [facility] Comment on above: Performed By: #### L [id number] ####[facility] RESPIRATORY [id number] [place] [facility] [place] [place] [address] [place] OXYGENATED HEMOGLOBIN IN BLOOD 60.2 % Normal [facility] Comment on above: Performed By: #### L [id number] ####[facility] RESPIRATORY [id number] [place] [facility] [place] [address] [facility] COMPREHENSIVE METABOLIC PANE Braulio 06-26-2023 Albumin [Mass/Vol] 4.1 g/dL Normal 3.5-5.7 [facility] Comment on above: Performed By: #### L [id number] ####[facility] ([facility])[address] [place] [address] ALP [Catalytic activity/Vol] 51 U/L Normal 34-104 [facility] Comment on above: Performed By: #### L [id number] ####[facility] ([facility])[address] [place] [address] ALT [Catalytic activity/Vol] 13 U/L Normal 7-52 [facility] Comment on above: Performed By: #### L [id number] ####[facility] ([facility])[address] [place] [address] Anion gap [Moles/Vol] 10 mmol/L Normal 7-20 [facility] Comment on above: Performed By: #### L [id number] ####[facility] ([facility] [place] [address] AST [Catalytic activity/Vol] 12 U/L Low 13-39 [facility] Comment on above: Performed By: #### L [id number] ####[facility] ([facility])[address] [place] [address] Bilirubin [Mass/Vol] 0.9 mg/dL Normal 0.3-1.0 [facility] Comment on above: Performed By: #### L [id number] ####[facility] ([facility])[address] [place] [address] Calcium [Mass/Vol] 8.6 mg/dL Normal 8.6-10.3 [facility] Comment on above: Performed By: #### L [id number] ####[facility] ([facility])[address] [place] [address] Chloride [Moles/Vol] 104 mmol/L Normal 98-107 [facility] Comment on above: Performed By: #### L [id number] ####[facility] ([facility])[address] [place] [address] CO2 [Moles/Vol] 26 mmol/L Normal 21-31 [facility] Comment on above: Performed By: #### L [id number] ####[facility] ([facility])[address] [place] [address] Creatinine [Mass/Vol] 0.82 mg/dL Normal 0.70-1.30 [facility] Comment on above: Performed By: #### L [id number] ####[facility] ([facility])[address] [place] [address] GLOMERULAR FILTRATION RATE ML/MIN/1.73 SQ M.PREDICTED 107.0 mL/min/1.73m*2 Normal >60.0 [facility] Comment on above: Result Comment: The [facility]???s estimated glomerular filtration rate (eGFR) will no [...] of individuals. Performed By: #### L [id number] ####[facility] ([facility])[address] [place] [address] Glucose [Mass/Vol] 97 mg/dL Normal 70-100 [facility] Comment on above: Performed By: #### L [id number] ####[facility] ([facility])[address] [place] [address] Potassium [Moles/Vol] 4.0 mmol/L Normal 3.5-5.1 [facility] Comment on above: Performed By: #### L [id number] ####[facility] ([facility])[address] [place] [address] Protein [Mass/Vol] 6.0 g/dL Normal 6.0-8.3 [facility] Comment on above: Performed By: #### L [id number] ####[facility] [place] [address] Sodium [Moles/Vol] 136 mmol/L Normal 136-145 [facility] Comment on above: Performed By: #### L [id number] ####[facility])[address] [place] [address] Urea nitrogen [Mass/Vol] 12 mg/dL Normal 7-25 [facility] Comment on above: Performed By: #### L [id number] ####[facility] ([facility])[address] [place] [address] UREA NITROGEN/CREATININE (MASS RATIO) IN SER/PLAS 14.6 Normal [facility] Comment on above: Performed By: #### L [id number] ####[facility] ([facility])[address] [place] [address] CONSULTon 06-26-2023 CONSULT Normal [facility] DEVICE CULTUREon 06-26-2023 Bacteria identified Cx Nom (Unsp spec) No growth at 18-24 hours Normal [facility] Comment on above: Order Comment: RIGHT ARM PICC LINE CULTURE Performed By: #### D EVICE CULTURE ####[facility] ([facility])[address] [place] [address] FIBRINOGENon 06-26-2023 Magnesium [Mass/Vol] 402 mg/dL Normal 150-425 [facility] Comment on above: Order Comment: Pre-o p diagnosis:Aortic valve disorder [I35.9] Performed By: #### L [id number] ####[facility] ([facility])[address] [place] [address] HISTOLOGY - TISSUE EXAMon LAB AP CASE REPORT Normal [facility] Comment on above: Order Comment: Pre-o p diagnosis:Aortic valve disorder [I35.9] Result Comment: Surg ical Pathology Case: [id number] Provider: Paul George MD Collected: 06/26/2023 115[address]Ordering Location: [facility] Main Operating Room Received: 06/26/2023 1354Pathologist: LILIA Prakashpecimen: Other, AORTIC VALVE LEAFLET FOR HISTOLOGY Performed By: #### L [id number] ####[facility] ([facility])[address] [place] [address] LAB AP CLINICAL INFORMATION Normal [facility] Comment on above: Order Comment: Pre-o p diagnosis:Aortic valve disorder [I35.9] Result Comment: Post -Op [id number] - Aortic valve disorder [ICD-10-CM] Performed By: #### L [id number] ####[facility] [place] [address] LAB AP GROSS DESCRIPTION A. Other. [facility] Comment on above: Order Comment: Pre-o [...] identified. The specimen is serially sectioned and admitting representative sections are submitted in 1 cassette.Nai Sheth, Pathologists' [employer]mental [employer] Installer Jaspreet Chawla [employer]' [employer] Installer Performed By: #### L [id number] ####[facility] ([facility])[address] [place] [address] LAB AP MICROSCOPIC DESCRIPTION Microscopic examination performed. [facility] Comment on above: Order Comment: Pre-o p diagnosis:Aortic valve disorder [I35.9] Performed By: #### L [id number] ####[facility] ([facility])[address] [place] [address] LAB AP REPORT FINAL DIAGNOSIS NARRATIVE [facility] Comment on above: Order Comment: Pre-o p diagnosis:Aortic valve disorder [I35.9] Result Comment: A. A ortic valve leaflet, removal:- Valvular tissue with fibrinoid necrosis and acute inflammation. Performed By: #### L [id number] ####[facility] ([facility])[address] [place] [address] LACTIC ACID WITH 4 HOUR REFL EXon 06-26-2023 LACTATE (MMOL/L) IN SER/PLAS 1.5 mmol/L Normal 0.5-2.2 [facility] Comment on above: Order Comment: Pre-o p diagnosis:Aortic valve disorder [I35.9] Performed By: #### L [id number] ####[facility] ([facility])[address] [place] [address] LACTATE (MMOL/L) IN SER/PLAS 3.1 mmol/L Critically high 0.5-2.2 [facility] Comment on above: Order Comment: Pre-o p diagnosis:Aortic valve disorder [I35.9] Performed By: #### L [id number] ####[facility] ([facility])[address] [place] [address] LACTIC ACID, PLASMAon 2023 LACTATE (MMOL/L) IN SER/PLAS 2.4 mmol/L High 0.5-2.2 [facility] Comment on above: Performed By: #### L [id number] ####[facility] ([facility])[address] [place] [address] MAGNESIUMon 06-26-2023 Magnesium [Mass/Vol] 2.4 mg/dL Normal 1.9-2.7 [facility] Comment on above: Performed By: #### L [id number] ####[facility] ([facility])[address] [place] [address] Magnesium [Mass/Vol] 2.6 mg/dL Normal 1.9-2.7 [facility] Comment on above: Order Comment: Pre-o p diagnosis:Aortic valve disorder [I35.9] Performed By: #### L [id number] ####[facility] ([facility])[address] [place] [address] Magnesium [Mass/Vol] 2.0 mg/dL Normal 1.9-2.7 [facility] Comment on above: Performed By: #### L [id number] ####[facility] [place] [address] OPNOTEon 06-26-2023 OPNOTE Normal [facility] PHOSPHORUSon 06-26-2023 Magnesium [Mass/Vol] 3.9 mg/dL Normal 2.5-5.0 [facility] Comment on above: Performed By: #### L [id number] ####[facility] ([facility])[address] [place] [address] Magnesium [Mass/Vol] 4.2 mg/dL Normal 2.5-5.0 [facility] Comment on above: Performed By: #### L [id number] ####[facility] ([facility])[address] [place] [address] POCT ACTIVATED CLOTTING TIME UNSOLICITED RESULTSon 06-26-2023 POC ACTIVATED CLOTTING TIME 143 sec Normal 82-152 [facility] Comment on above: Performed By: #### L [id number] ####[facility] ([facility])[address] [place] [address] POC ACTIVATED CLOTTING TIME 148 sec Normal 82-152 [facility] Comment on above: Performed By: #### L [id number] ####[facility] ([facility])[address] [place] [address] POC ACTIVATED CLOTTING TIME 473 sec High 82-152 [facility] Comment on above: Performed By: #### L [id number] ####[facility] ([facility])[address] [place] [address] POC ACTIVATED CLOTTING TIME 562 sec High 82-152 [facility] Comment on above: Performed By: #### L [id number] ####[facility] ([facility]ER)[address] [place] [address] POC ACTIVATED CLOTTING TIME 602 sec High 82-152 [facility] Comment on above: Performed By: #### L [id number] ####[facility] ([facility]ER)[address] [place] [address] POC ACTIVATED CLOTTING TIME 679 sec High 82-152 [facility] Comment on above: Performed By: #### L [id number] ####[facility] ([facility])[address] [place] [address] POC ACTIVATED CLOTTING TIME 772 sec High 82-152 [facility] Comment on above: Performed By: #### L [id number] ####[facility] ([facility])[address] [place] [address] POC ACTIVATED CLOTTING TIME 772 sec High 82-152 [facility] Comment on above: Performed By: #### L [id number] ####[facility] ([facility])[address] [place] [address] POC ACTIVATED CLOTTING TIME 701 sec High 82-152 [facility] Comment on above: Performed By: #### L [id number] ####[facility] ([facility])[address] [place] [address] POC ACTIVATED CLOTTING TIME 154 sec High 82-152 [facility] Comment on above: Performed By: #### L [id number] ####[facility] ([facility])[address] [place] [address] POCT GLUCOSE METER UNSOLICIT ED RESULTSon 06-26-2023 Glucose [Mass/Vol] 126 mg/dL High 70-105 [facility] Comment on above: Order Comment: Waive d Testing in the ED is performed under the ED CLIA certificate #[id number]. Result Comment: mmcc gabo Performed By: #### L [id number] ####[facility] ([facility])[address] [place] [address] Glucose [Mass/Vol] 135 mg/dL High 70-105 [facility] Comment on above: Order Comment: Waive d Testing in the ED is performed under the ED CLIA certificate #[id number]. Result Comment: pcar r Performed By: #### L [id number] ####[facility] [place] [address] Glucose [Mass/Vol] 131 mg/dL High 70-105 [facility] Comment on above: Order Comment: Waive d Testing in the ED is performed under the ED CLIA certificate #[id number]. Result Comment: [email or web address] Performed By: #### L [id number] ####[facility] (BE[facility])[address] [place] [address] POCT PERFUSION PANEL UNSOLIC ITED RESULTSon 06-26-2023 CO2 [Moles/Vol] 22.0 mmol/L Normal 21.0-29.0 [facility] Comment on above: Performed By: #### L [id number] ####[facility] (BEAKER)[address] [place] [address] Glucose [Mass/Vol] 197 mg/dL High 70-105 [facility] Comment on above: Performed By: #### L [id number] ####[facility] ([facility])[address] [place] [address] HCO3 (Bld) [Moles/Vol] 20.8 mmol/L Low 23.0-28.0 [facility] Comment on above: Performed By: #### L [id number] ####[facility] ([facility])[address] [place] [address] Hematocrit (Bld) [Volume fraction] 30 % Low 38-51 [facility] Comment on above: Performed By: #### L [id number] ####[facility] ([facility])[address] [place] [address] Hemoglobin (Bld) [Mass/Vol] 10.2 g/dL Low 12.0-17.0 [facility] Comment on above: Performed By: #### L [id number] ####[facility] ([facility])[address] [place] [address] POCT BASE EXCESS -4.0 mmol/L Low -2.0-3.0 [facility] Comment on above: Performed By: #### L [id number] ####[facility] ([facility])[address] [place] [address] POCT IONIZED CALCIUM 1.17 mmol/L Normal 1.12-1.[address] [facility] Comment on above: Performed By: #### L [id number] ####[facility] (BEAKER)[address] [place] [address] POCT PCO2 36.5 mmHg Low 41.0-51.0 [facility] Comment on above: Performed By: #### L [id number] ####[facility] (BEAKER)[address] [place] [address] POCT PH 7.36 Normal 7.31-7.41 [facility] Comment on above: Performed By: #### L [id number] ####[facility] [place] [address] POCT PO2 240 mmHg High 80-105 [facility] Comment on above: Performed By: #### L [id number] ####[facility] [place] [address] POCT SO2 100 % High 95-98 [facility] Comment on above: Performed By: #### L [id number] ####[facility] [place] [address] Potassium [Moles/Vol] 3.9 mmol/L Normal 3.5-4.9 [facility] Comment on above: Performed By: #### L [id number] ####[facility] (BEAKER)[address] [place] [address] Sodium [Moles/Vol] 139 mmol/L Normal 138.0-146.0 [facility] Comment on above: Performed By: #### L [id number] ####[facility] (BEAKER)[address] [place] [address] CO2 [Moles/Vol] 23.0 mmol/L Normal 21.0-29.0 [facility] Comment on above: Performed By: #### L [id number] ####[facility] (BEAKER)[address] [place] [address] Glucose [Mass/Vol] 208 mg/dL High 70-105 [facility] Comment on above: Performed By: #### L [id number] ####[facility] (BEAKER)[address] [place] [address] HCO3 (Bld) [Moles/Vol] 21.6 mmol/L Low 23.0-28.0 [facility] Comment on above: Performed By: #### L [id number] ####[facility] (BEAKER)[address] [place] [address] Hematocrit (Bld) [Volume fraction] 28 % Low 38-51 [facility] Comment on above: Performed By: #### L [id number] ####[facility] (BEAKER)[address] [address] Hemoglobin (Bld) [Mass/Vol] 9.5 g/dL Low 12.0-17.0 [facility] Comment on above: Performed By: #### L [id number] ####[facility] (BEAKER)[address] [place] [address] POCT BASE EXCESS -4.0 mmol/L Low -2.0-3.0 [facility] Comment on above: Performed By: #### L [id number] ####[facility] (BEAKER)[address] [place] [address] POCT IONIZED CALCIUM 1.22 mmol/L Normal 1.12-1.[address] [facility] Comment on above: Performed By: #### L [id number] ####[facility] (BEAKER)[address] [place] [address] POCT PCO2 38.6 mmHg Low 41.0-51.0 [facility] Comment on above: Performed By: #### L [id number] ####[facility] (BEAKER)[address] [place] [address] POCT PH 7.36 Normal 7.31-7.41 [facility] Comment on above: Performed By: #### L [id number] ####[facility] (BEAKER)[address] [place] [address] POCT PO2 265 mmHg High 80-105 [facility] Comment on above: Performed By: #### L [id number] ####[facility] (BEAKER)[address] [place] [address] POCT SO2 100 % High 95-98 [facility] Comment on above: Performed By: #### L [id number] ####[facility] (BEAKER)[address] [place] [address] Potassium [Moles/Vol] 3.9 mmol/L Normal 3.5-4.9 [facility] Comment on above: Performed By: #### L [id number] ####[facility] (BEAKER)[address] [place] [address] Sodium [Moles/Vol] 137 mmol/L Low 138.0-146.0 [facility] Comment on above: Performed By: #### L [id number] ####[facility] (BEAKER)[address] [place] [address] CO2 [Moles/Vol] 25.0 mmol/L Normal 21.0-29.0 [facility] Comment on above: Performed By: #### L [id number] ####[facility] (BEAKER)[address] [place] [address] Glucose [Mass/Vol] 216 mg/dL High 70-105 [facility] Comment on above: Performed By: #### L [id number] ####[facility] (BEAKER)[address] [place] [address] HCO3 (Bld) [Moles/Vol] 23.3 mmol/L Normal 23.0-28.0 [facility] Comment on above: Performed By: #### L [id number] ####[facility] (BEAKER)[address] [place] [address] Hematocrit (Bld) [Volume fraction] 28 % Low 38-51 [facility] Comment on above: Performed By: #### L [id number] ####[facility] (BEAKER)[address] [place] [address] Hemoglobin (Bld) [Mass/Vol] 9.5 g/dL Low 12.0-17.0 [facility] Comment on above: Performed By: #### L [id number] ####[facility] (BEAKER)[address] [place] [address] POCT BASE EXCESS -3.0 mmol/L Low -2.0-3.0 [facility] Comment on above: Performed By: #### L [id number] ####[facility] (BEAKER)[address] [place] [address] POCT IONIZED CALCIUM 1.29 mmol/L Normal 1.12-1.[address] [facility] Comment on above: Performed By: #### L [id number] ####[facility] (BEAKER)[address] [place] [address] POCT PCO2 46.6 mmHg Normal 41.0-51.0 [facility] Comment on above: Performed By: #### L [id number] ####[facility] (BEAKER)[address] [place] [address] POCT PH 7.31 Normal 7.31-7.41 [facility] Comment on above: Performed By: #### L [id number] ####[facility] (BEAKER)[address] [place] [address] POCT PO2 348 mmHg High 80-105 [facility] Comment on above: Performed By: #### L [id number] ####[facility] (BEAKER)[address] [place] [address] POCT SO2 100 % High 95-98 [facility] Comment on above: Performed By: #### L [id number] ####[facility] (BEAKER)[address] [place] [address] Potassium [Moles/Vol] 4.7 mmol/L Normal 3.5-4.9 [facility] Comment on above: Performed By: #### L [id number] ####[facility] (BEAKER)[address] [place] [address] Sodium [Moles/Vol] 136 mmol/L Low 138.0-146.0 [facility] Comment on above: Performed By: #### L [id number] ####[facility] (BEAKER)[address] [place] [address] CO2 [Moles/Vol] 26.0 mmol/L Normal 21.0-29.0 [facility] Comment on above: Performed By: #### L [id number] ####[facility] (BEAKER)[address] [place] [address] Glucose [Mass/Vol] 173 mg/dL High 70-105 [facility] Comment on above: Performed By: #### L [id number] ####[facility] (BEAKER)[address] [place] [address] HCO3 (Bld) [Moles/Vol] 24.8 mmol/L Normal 23.0-28.0 [facility] Comment on above: Performed By: #### L [id number] ####[facility] (BEAKER)[address] [place] [address] Hematocrit (Bld) [Volume fraction] 30 % Low 38-51 [facility] Comment on above: Performed By: #### L [id number] ####[facility] (BEAKER)[address] [place] [address] Hemoglobin (Bld) [Mass/Vol] 10.2 g/dL Low 12.0-17.0 [facility] Comment on above: Performed By: #### L [id number] ####[facility] (BEAKER)[address] [place] [address] POCT BASE EXCESS 0.0 mmol/L Normal -2.0-3.0 [facility] Comment on above: Performed By: #### L [id number] ####[facility] (BEAKER)[address] [place] [address] POCT IONIZED CALCIUM 1.57 mmol/L Critically high 1.12-1.32 [facility] Comment on above: Performed By: #### L [id number] ####[facility] (BEAKER)[address] [place] [address] POCT PCO2 40.5 mmHg Low 41.0-51.0 [facility] Comment on above: Performed By: #### L [id number] ####[facility] [place] [address] POCT PH 7.40 Normal 7.31-7.41 [facility] Comment on above: Performed By: #### L [id number] ####[facility] [address] POCT PO2 321 mmHg High 80-105 [facility] Comment on above: Performed By: #### L [id number] ####[facility] ([facility])[address] [address] POCT SO2 100 % High 95-98 [facility] Comment on above: Performed By: #### L [id number] ####[facility] ([facility])[address] [place] [address] Potassium [Moles/Vol] 5.4 mmol/L High 3.5-4.9 [facility] Comment on above: Performed By: #### L [id number] ####[facility] [place] [address] Sodium [Moles/Vol] 134 mmol/L Low 138.0-146.0 [facility] Comment on above: Performed By: #### L [id number] ####[facility] (BEAKER)[address] [place] [address] CO2 [Moles/Vol] 25.0 mmol/L Normal 21.0-29.0 [facility] Comment on above: Performed By: #### L [id number] ####[facility] (BEAKER)[address] [place] [address] Glucose [Mass/Vol] 171 mg/dL High 70-105 [facility] Comment on above: Performed By: #### L [id number] ####[facility] (BEAKER)[address] [place] [address] HCO3 (Bld) [Moles/Vol] 23.6 mmol/L Normal 23.0-28.0 [facility] Comment on above: Performed By: #### L [id number] ####[facility] (BEAKER)[address] [place] [address] Hematocrit (Bld) [Volume fraction] 30 % Low 38-51 [facility] Comment on above: Performed By: #### L [id number] ####[facility] (BEAKER)[address] [place] [address] Hemoglobin (Bld) [Mass/Vol] 10.2 g/dL Low 12.0-17.0 [facility] Comment on above: Performed By: #### L [id number] ####[facility] (BEAKER)[address] [place] [address] POCT BASE EXCESS -2.0 mmol/L Normal -2.0-3.0 [facility] Comment on above: Performed By: #### L [id number] ####[facility] (BEAKER)[address] [place] [address] POCT IONIZED CALCIUM 1.12 mmol/L Normal 1.12-1.[address] [facility] Comment on above: Performed By: #### L [id number] ####[facility] (BEAKER)[address] [place] [address] POCT PCO2 44.0 mmHg Normal 41.0-51.0 [facility] Comment on above: Performed By: #### L [id number] ####[facility] (BEAKER)[address] [place] [address] POCT PH 7.34 Normal 7.31-7.41 [facility] Comment on above: Performed By: #### L [id number] ####[facility] (BEAKER)[address] [place] [address] POCT PO2 390 mmHg High 80-105 [facility] Comment on above: Performed By: #### L [id number] ####[facility] (BEAKER)[address] [place] [address] POCT SO2 100 % High 95-98 [facility] Comment on above: Performed By: #### L [id number] ####[facility] (BEAKER)[address] [place] [address] Potassium [Moles/Vol] 5.4 mmol/L High 3.5-4.9 [facility] Comment on above: Performed By: #### L [id number] ####[facility] (BEAKER)[address] [place] [address] Sodium [Moles/Vol] 136 mmol/L Low 138.0-146.0 [facility] Comment on above: Performed By: #### L [id number] ####[facility] (BEAKER)[address] [place] [address] CO2 [Moles/Vol] 25.0 mmol/L Normal 21.0-29.0 [facility] Comment on above: Performed By: #### L [id number] ####[facility] (BEAKER)[address] [place] [address] Glucose [Mass/Vol] 184 mg/dL High 70-105 [facility] Comment on above: Performed By: #### L [id number] ####[facility] (BEAKER)[address] [place] [address] HCO3 (Bld) [Moles/Vol] 23.7 mmol/L Normal 23.0-28.0 [facility] Comment on above: Performed By: #### L [id number] ####[facility] (BEAKER)[address] [place] [address] Hematocrit (Bld) [Volume fraction] 33 % Low 38-51 [facility] Comment on above: Performed By: #### L [id number] ####[facility] (BEAKER)[address] [place] [address] Hemoglobin (Bld) [Mass/Vol] 11.2 g/dL Low 12.0-17.0 [facility] Comment on above: Performed By: #### L [id number] ####[facility] (BEAKER)[address] [place] [address] POCT BASE EXCESS -3.0 mmol/L Low -2.0-3.0 [facility] Comment on above: Performed By: #### L [id number] ####[facility] (BEAKER)[address] [place] [address] POCT IONIZED CALCIUM 1.09 mmol/L Low 1.12-1.[address] [facility] Comment on above: Performed By: #### L [id number] ####[facility] (BEAKER)[address] [place] [address] POCT PCO2 46.1 mmHg Normal 41.0-51.0 [facility] Comment on above: Performed By: #### L [id number] ####[facility] (BEAKER)[address] [place] [address] POCT PH 7.32 Normal 7.31-7.41 [facility] Comment on above: Performed By: #### L [id number] ####[facility] (BEAKER)[address] [place] [address] POCT PO2 400 mmHg High 80-105 [facility] Comment on above: Performed By: #### L [id number] ####[facility] (BEAKER)[address] [address] POCT SO2 100 % High 95-98 [facility] Comment on above: Performed By: #### L [id number] ####[facility] (BEAKER)[address] [place] [address] Potassium [Moles/Vol] 4.5 mmol/L Normal 3.5-4.9 [facility] Comment on above: Performed By: #### L [id number] ####[facility] (BEAKER)[address] [place] [address] Sodium [Moles/Vol] 136 mmol/L Low 138.0-146.0 [facility] Comment on above: Performed By: #### L [id number] ####[facility] (BEAKER)[address] [place] [address] CO2 [Moles/Vol] 25.0 mmol/L Normal 21.0-29.0 [facility] Comment on above: Performed By: #### L [id number] ####[facility] (BEAKER)[address] [place] [address] Glucose [Mass/Vol] 193 mg/dL High 70-105 [facility] Comment on above: Performed By: #### L [id number] ####[facility] (BEAKER)[address] [place] [address] HCO3 (Bld) [Moles/Vol] 23.6 mmol/L Normal 23.0-28.0 [facility] Comment on above: Performed By: #### L [id number] ####[facility] (BEAKER)[address] [place] [address] Hematocrit (Bld) [Volume fraction] 26 % Low 38-51 [facility] Comment on above: Performed By: #### L [id number] ####[facility] (BEAKER)[address] [place] [address] Hemoglobin (Bld) [Mass/Vol] 8.8 g/dL Low 12.0-17.0 [facility] Comment on above: Performed By: #### L [id number] ####[facility] (BEAKER)[address] [place] [address] POCT BASE EXCESS -2.0 mmol/L Normal -2.0-3.0 [facility] Comment on above: Performed By: #### L [id number] ####[facility] (BEAKER)[address] [place] [address] POCT IONIZED CALCIUM 1.06 mmol/L Low 1.12-1.[address] [facility] Comment on above: Performed By: #### L [id number] ####[facility] (BEAKER)[address] [place] [address] POCT PCO2 40.9 mmHg Low 41.0-51.0 [facility] Comment on above: Performed By: #### L [id number] ####[facility] (BEAKER)[address] [place] [address] POCT PH 7.37 Normal 7.31-7.41 [facility] Comment on above: Performed By: #### L [id number] ####[facility] (BEAKER)[address] [place] [address] POCT PO2 510 mmHg High 80-105 [facility] Comment on above: Performed By: #### L [id number] ####[facility] [place] [address] POCT SO2 100 % High 95-98 [facility] Comment on above: Performed By: #### L [id number] ####[facility] (BEAKER)[address] [place] [address] Potassium [Moles/Vol] 4.4 mmol/L Normal 3.5-4.9 [facility] Comment on above: Performed By: #### L [id number] ####[facility] (BEAKER)[address] [place] [address] Sodium [Moles/Vol] 135 mmol/L Low 138.0-146.0 [facility] Comment on above: Performed By: #### L [id number] ####[facility] (BEAKER)[address] [place] [address] CO2 [Moles/Vol] 24.0 mmol/L Normal 21.0-29.0 [facility] Comment on above: Performed By: #### L [id number] ####[facility] (BEAKER)[address] [place] [address] Glucose [Mass/Vol] 185 mg/dL High 70-105 [facility] Comment on above: Performed By: #### L [id number] ####[facility] (BEAKER)[address] [place] [address] HCO3 (Bld) [Moles/Vol] 22.7 mmol/L Low 23.0-28.0 [facility] Comment on above: Performed By: #### L [id number] ####[facility] (BEAKER)[address] [place] [address] Hematocrit (Bld) [Volume fraction] 26 % Low 38-51 [facility] Comment on above: Performed By: #### L [id number] ####[facility] (BEAKER)[address] [address] Hemoglobin (Bld) [Mass/Vol] 8.8 g/dL Low 12.0-17.0 [facility] Comment on above: Performed By: #### L [id number] ####[facility] (BEAKER)[address] [place] [address] POCT BASE EXCESS -2.0 mmol/L Normal -2.0-3.0 [facility] Comment on above: Performed By: #### L [id number] ####[facility] (BEAKER)[address] [place] [address] POCT IONIZED CALCIUM 1.10 mmol/L Low 1.12-1.[address] [facility] Comment on above: Performed By: #### L [id number] ####[facility] (BEAKER)[address] [place] [address] POCT PCO2 37.2 mmHg Low 41.0-51.0 [facility] Comment on above: Performed By: #### L [id number] ####[facility] (BEAKER)[address] [place] [address] POCT PH 7.39 Normal 7.31-7.41 [facility] Comment on above: Performed By: #### L [id number] ####[facility] (BEAKER)[address] [place] [address] POCT PO2 485 mmHg High 80-105 [facility] Comment on above: Performed By: #### L [id number] ####[facility] (BEAKER)[address] [place] [address] POCT SO2 100 % High 95-98 [facility] Comment on above: Performed By: #### L [id number] ####[facility] (BEAKER)[address] [place] [address] Potassium [Moles/Vol] 3.7 mmol/L Normal 3.5-4.9 [facility] Comment on above: Performed By: #### L [id number] ####[facility] (BEAKER)[address] [place] [address] Sodium [Moles/Vol] 136 mmol/L Low 138.0-146.0 [facility] Comment on above: Performed By: #### L [id number] ####[facility] (BEAKER)[address] [place] [address] CO2 [Moles/Vol] 23.0 mmol/L Normal 21.0-29.0 [facility] Comment on above: Performed By: #### L [id number] ####[facility] (BEAKER)[address] [place] [address] Glucose [Mass/Vol] 132 mg/dL High 70-105 [facility] Comment on above: Performed By: #### L [id number] ####[facility] (BEAKER)[address] [place] [address] HCO3 (Bld) [Moles/Vol] 21.5 mmol/L Low 23.0-28.0 [facility] Comment on above: Performed By: #### L [id number] ####[facility] (BEAKER)[address] [place] [address] Hematocrit (Bld) [Volume fraction] 29 % Low 38-51 [facility] Comment on above: Performed By: #### L [id number] ####[facility] (BEAKER)[address] [place] [address] Hemoglobin (Bld) [Mass/Vol] 9.9 g/dL Low 12.0-17.0 [facility] Comment on above: Performed By: #### L [id number] ####[facility] (BEAKER)[address] [address] POCT BASE EXCESS -4.0 mmol/L Low -2.0-3.0 [facility] Comment on above: Performed By: #### L [id number] ####[facility] (BEAKER)[address] [address] POCT IONIZED CALCIUM 1.27 mmol/L Normal 1.12-1.[address] [facility] Comment on above: Performed By: #### L [id number] ####[facility] (BEAKER)[address] [address] POCT PCO2 38.3 mmHg Low 41.0-51.0 [facility] Comment on above: Performed By: #### L [id number] ####[facility] (BEAKER)[address] [place] [address] POCT PH 7.36 Normal 7.31-7.41 [facility] Comment on above: Performed By: #### L [id number] ####[facility] (BEAKER)[address] [address] POCT PO2 214 mmHg High 80-105 [facility] Comment on above: Performed By: #### L [id number] ####[facility] (BEAKER)[address] [address] POCT SO2 100 % High 95-98 [facility] Comment on above: Performed By: #### L [id number] ####[facility] (BEAKER)[address] [place] [address] Potassium [Moles/Vol] 3.9 mmol/L Normal 3.5-4.9 [facility] Comment on above: Performed By: #### L [id number] ####[facility] (BEAKER)[address] [place] [address] Sodium [Moles/Vol] 137 mmol/L Low 138.0-146.0 [facility] Comment on above: Performed By: #### L [id number] ####[facility] (BEAKER)[address] [place] [address] POCT BASE EXCESS Normal [facility] Comment on above: Performed By: #### L [id number] ####[facility] [place] [address] POCT GLUCOSE Normal [facility] Comment on above: Performed By: #### L [id number] ####[facility] [place] [address] POCT HCO3 Normal [facility] Comment on above: Performed By: #### L [id number] ####[facility] ([facility])[address] [place] [address] POCT HEMATOCRIT Normal [facility] Comment on above: Performed By: #### L [id number] ####[facility] ([facility])[address] [place] [address] POCT HEMOGLOBIN Normal [facility] Comment on above: Performed By: #### L [id number] ####[facility] ([facility])[address] [place] [address] POCT IONIZED CALCIUM Normal [facility] Comment on above: Performed By: #### L [id number] ####[facility] ([facility])[address] [place] [address] POCT PCO2 Normal [facility] Comment on above: Performed By: #### L [id number] ####[facility] [place] [address] POCT PH Normal [facility] Comment on above: Performed By: #### L [id number] ####[facility] (BEAKER)[address] [place] [address] POCT PO2 53 mmHg Low 80-105 [facility] Comment on above: Performed By: #### L [id number] ####[facility] ([facility]AKER)[address] [place] [address] POCT POTASSIUM Normal [facility] Comment on above: Performed By: #### L [id number] ####[facility] (BEAKER)[address] [place] [address] POCT SO2 85 % Low 95-98 [facility] Comment on above: Performed By: #### L [id number] ####[facility] (BEAKER)[address] [place] [address] POCT SODIUM Normal [facility] Comment on above: Performed By: #### L [id number] ####[facility] (BEAKER)[address] [place] [address] POCT TOTAL CO2 Normal [facility] Comment on above: Performed By: #### L [id number] ####[facility] (BEAKER)[address] [place] [address] CO2 [Moles/Vol] 25.0 mmol/L Normal 21.0-29.0 [facility] Comment on above: Performed By: #### L [id number] ####[facility] (BEAKER)[address] [place] [address] Glucose [Mass/Vol] 114 mg/dL High 70-105 [facility] Comment on above: Performed By: #### L [id number] ####[facility] (BEAKER)[address] [place] [address] HCO3 (Bld) [Moles/Vol] 23.4 mmol/L Normal 23.0-28.0 [facility] Comment on above: Performed By: #### L [id number] ####[facility] (BEAKER)[address] [place] [address] Hematocrit (Bld) [Volume fraction] 30 % Low 38-51 [facility] Comment on above: Performed By: #### L [id number] ####[facility] (BEAKER)[address] [place] [address] Hemoglobin (Bld) [Mass/Vol] 10.2 g/dL Low 12.0-17.0 [facility] Comment on above: Performed By: #### L [id number] ####[facility] (BEAKER)[address] [place] [address] POCT BASE EXCESS -2.0 mmol/L Normal -2.0-3.0 [facility] Comment on above: Performed By: #### L [id number] ####[facility] (BEAKER)[address] [address] POCT IONIZED CALCIUM 1.19 mmol/L Normal 1.12-1.[address] [facility] Comment on above: Performed By: #### L [id number] ####[facility] (BEAKER)[address] [address] POCT PCO2 40.0 mmHg Low 41.0-51.0 [facility] Comment on above: Performed By: #### L [id number] ####[facility] (BEAKER)[address] [address] POCT PH 7.38 Normal 7.31-7.41 [facility] Comment on above: Performed By: #### L [id number] ####[facility] (BEAKER)[address] [address] POCT PO2 159 mmHg High 80-105 [facility] Comment on above: Performed By: #### L [id number] ####[facility] (BEAKER)[address] [address] POCT SO2 99 % High 95-98 [facility] Comment on above: Performed By: #### L [id number] ####[facility] (BEAKER)[address] [place] [address] Potassium [Moles/Vol] 4.1 mmol/L Normal 3.5-4.9 [facility] Comment on above: Performed By: #### L [id number] ####[facility] (BEAKER)[address] [place] [address] Sodium [Moles/Vol] 137 mmol/L Low 138.0-146.0 [facility] Comment on above: Performed By: #### L [id number] ####[facility] ([employer])[address] [place] [address] PROTIME-INRon 06-26-2023 INR IN PPP BY COAGULATION ASSAY 1.29 High 0.90-1.10 [facility] Comment on above: Result Comment: [facility] P RECOMMENDED INR FOR WARFARIN THERAPY CONDITION INRPROPHYLAXIS OF VENOUS THROMBOSIS 2-3(HIGH-RISK SURGERY)TREATMENT OF VENOUS THROMBOSIS 2-3TREATMENT OF PULMONARY EMBOLISM 2-3PREVENTION OF SYSTEMIC EMBOLISM: 2-3 ACUTE MYOCARDIAL INFARCTION TISSUE HEART VALVES VALVULAR HEART DISEASE ATRIAL FIBRILLATION RECURRENT SYSTEMIC EMBOLISMMECHANICAL HEART VALVE 2.5-3.5 FROM: ORAL ANTICOAGULANTS. MECHANISM OF ACTION, CLINICAL EFFECTIVENESS, AND OPTIMAL THERAPEUTIC RANGE. CHEST 1995;108:231S-246S. Performed By: #### L [id number] ####[facility] ([employer])[address] [place] [address] PROTHROMBIN TIME (PT) IN PPP BY COAGULATION ASSAY 16.1 Seconds High 12.3-14.8 [facility] Comment on above: Performed By: #### L [id number] ####[facility] ([employer])[address] [place] [address] INR IN PPP BY COAGULATION ASSAY 1.37 High 0.90-1.10 [facility] Comment on above: Order Comment: Pre-o p diagnosis:Aortic valve disorder [I35.9] Result Comment: [facility] P RECOMMENDED INR FOR WARFARIN THERAPY CONDITION INRPROPHYLAXIS OF VENOUS THROMBOSIS 2-3(HIGH-RISK SURGERY)TREATMENT OF VENOUS THROMBOSIS 2-3TREATMENT OF PULMONARY EMBOLISM 2-3PREVENTION OF SYSTEMIC EMBOLISM: 2-3 ACUTE MYOCARDIAL INFARCTION TISSUE HEART VALVES VALVULAR HEART DISEASE ATRIAL FIBRILLATION RECURRENT SYSTEMIC EMBOLISMMECHANICAL HEART VALVE 2.5-3.5 FROM: ORAL ANTICOAGULANTS. MECHANISM OF ACTION, CLINICAL EFFECTIVENESS, AND OPTIMAL THERAPEUTIC RANGE. CHEST 1995;108:231S-246S. Performed By: #### L [id number] ####[facility] [employer])[address] [place] [address] PROTHROMBIN TIME (PT) IN PPP BY COAGULATION ASSAY 16.9 Seconds High 12.3-14.8 [facility] Comment on above: Order Comment: Pre-o p diagnosis:Aortic valve disorder [I35.9] Performed By: #### L [id number] ####[facility] ([employer])[address] [place] [address] INR IN PPP BY COAGULATION ASSAY 1.06 Normal 0.90-1.10 [facility] Comment on above: Result Comment: [facility] P [...] CHEST 1995;108:231S-246S. Performed By: #### L [id number] ####[facility] ([facility])[address] [place] [address] PROTHROMBIN TIME (PT) IN PPP BY COAGULATION ASSAY 13.8 Seconds Normal 12.3-14.8 [facility] Comment on above: Performed By: #### L [id number] ####[facility] ([facility])[address] [place] [address] TISSUE CULTUREon 06-26-2023 Bacteria identified Cx Nom (Unsp spec) No growth at 5 days Normal [facility] Comment on above: Order Comment: Pre-o p diagnosis:Aortic valve disorder [I35.9] Performed By: #### L [id number] ####[facility] ([facility])[address] [place] [address] GRAM STAIN RESULT Normal [facility] Comment on above: Order Comment: Pre-o p diagnosis:Aortic valve disorder [I35.9] Result Comment: No p olymorphonuclear leukocytes seenNo organisms seen Performed By: #### L [id number] ####[facility] ([facility])[address] [place] [address] 30on 06-25-2023 30 Normal [facility] ANESon 06-25-2023 ANES Normal [facility] APTTon 06-25-2023 ACTIVATED PARTIAL THROMBOPLASTIN TIME IN PPP BY COAGULATION ASSAY 31.3 Seconds Normal 25.0-35.0 [facility] Comment on above: Result Comment: Clin ical significance of the APTT is questionable in the presence of heparin. Performed By: #### L [id number] ####[facility] ([facility])[address] [place] [address] CBC WITH AUTO DIFFERENTIALon 06-25-2023 Basophils (Bld) [#/Vol] 0.04 10*3/uL Normal 0.00-0.20 [facility] Comment on above: Performed By: #### L [id number] ####[facility] (BEAKER)[address] [place] [address] Basophils/100 WBC (Bld) 0.8 % Normal 0.0-1.0 [facility] Comment on above: Performed By: #### L [id number] ####[facility] (BEAKER)[address] [place] [address] Eosinophils (Bld) [#/Vol] 0.38 10*3/uL Normal 0.00-0.50 [facility] Comment on above: Performed By: #### L [id number] ####[facility] (BEAKER)[address] [place] [address] Eosinophils/100 WBC (Bld) 7.7 % High 0.0-6.0 [facility] Comment on above: Performed By: #### L [id number] ####[facility] (BEAKER)[address] [place] [address] Erythrocyte distribution width (RBC) [Ratio] 16.0 % High 11.5-15.0 [facility] Comment on above: Performed By: #### L [id number] ####[facility] (BEAKER)[address] [place] [address] ERYTHROCYTE MEAN CORPUSCULAR HEMOGLOBIN CONCENTRATION (G/DL) BY AUTOMATED 34.0 g/dL Normal 32.0-35.0 [facility] Comment on above: Performed By: #### L [id number] ####[facility] (BEAKER)[address] [place] [address] Hematocrit (Bld) [Volume fraction] 32.6 % Low 39.0-55.0 [facility] Comment on above: Performed By: #### L [id number] ####[facility] (BEAKER)[address] [place] [address] Hemoglobin (Bld) [Mass/Vol] 11.1 g/dL Low 13.0-17.0 [facility] Comment on above: Performed By: #### L [id number] ####[facility] (BEAKER)[address] [place] [address] Immature granulocytes (Bld) [#/Vol] 0.02 10*3/uL Normal 0.00-0.20 [facility] Comment on above: Performed By: #### L [id number] ####[facility] (BEAKER)[address] [place] [address] Immature granulocytes/100 WBC (Bld) 0.4 % Normal 0.0-1.0 [facility] Comment on above: Performed By: #### L [id number] ####[facility] (BEAKER)[address] [place] [address] Lymphocytes (Bld) [#/Vol] 0.80 10*3/uL Low 1.20-4.00 [facility] Comment on above: Performed By: #### L [id number] ####[facility] (BEAKER)[address] [place] [address] Lymphocytes/100 WBC (Bld) 16.2 % Low 20.0-45.0 [facility] Comment on above: Performed By: #### L [id number] ####[facility] (BEAKER)[address] [place] [address] MCH (RBC) [Entitic mass] 29.8 pg Normal 27.0-33.0 [facility] Comment on above: Performed By: #### L [id number] ####[facility] (BEAKER)[address] [place] [address] MCV (RBC) [Entitic vol] 87.4 fL Normal 82.0-98.0 [facility] Comment on above: Performed By: #### L [id number] ####[facility] (BEAKER)[address] [place] [address] Monocytes (Bld) [#/Vol] 0.42 10*3/uL Normal 0.10-1.00 [facility] Comment on above: Performed By: #### L [id number] ####[facility] ([facility])[address] [place] [address] Monocytes/100 WBC (Bld) 8.5 % Normal 5.0-12.0 [facility] Comment on above: Performed By: #### L [id number] ####[facility] ([facility])[address] [address] Neutrophils (Bld) [#/Vol] 3.29 10*3/uL Normal 1.60-7.60 [facility] Comment on above: Performed By: #### L [id number] ####[facility] ([facility])[address] [address] Neutrophils/100 WBC (Bld) 66.4 % Normal 40.0-72.0 [facility] Comment on above: Performed By: #### L [id number] ####[facility] ([facility])[address] [place] [address] NRBC (PER 100 WBCS) BY AUTOMATED COUNT 0.0 % Normal 0 [facility] Comment on above: Performed By: #### L [id number] ####[facility] ([facility])[address] [place] [address] PLATELETS (10*3/UL) IN BLOOD AUTOMATED COUNT 142 10*3/uL Low 150-400 [facility] Comment on above: Performed By: #### L [id number] ####[facility] ([facility])[address] [place] [address] RBC (Bld) [#/Vol] 3.73 10*6/uL Low 4.20-5.70 [facility] Comment on above: Performed By: #### L [id number] ####[facility] ([facility])[address] [address] WBC (Bld) [#/Vol] 4.95 10*3/uL Normal 4.00-10.60 [facility] Comment on above: Performed By: #### L [id number] ####[facility] (BEAKER)[address] [place] [address] COMPREHENSIVE METABOLIC PANE Braulio 06-25-2023 Albumin [Mass/Vol] 3.9 g/dL Normal 3.5-5.7 [facility] Comment on above: Performed By: #### L [id number] ####[facility] [place] [address] ALP [Catalytic activity/Vol] 49 U/L Normal 34-104 [facility] Comment on above: Performed By: #### L [id number] ####[facility] ([facility])[address] [place] [address] ALT [Catalytic activity/Vol] 13 U/L Normal 7-52 [facility] Comment on above: Performed By: #### L [id number] ####[facility] ([facility])[address] [place] [address] Anion gap [Moles/Vol] 11 mmol/L Normal 7-20 [facility] Comment on above: Performed By: #### L [id number] ####[facility] ([facility])[address] [place] [address] AST [Catalytic activity/Vol] 12 U/L Low 13-39 [facility] Comment on above: Performed By: #### L [id number] ####[facility] [place] [address] Bilirubin [Mass/Vol] 0.8 mg/dL Normal 0.3-1.0 [facility] Comment on above: Performed By: #### L [id number] ####[facility] [place] [address] Calcium [Mass/Vol] 8.8 mg/dL Normal 8.6-10.3 [facility] Comment on above: Performed By: #### L [id number] ####[facility] (BEAKER)[address] [place] [address] Chloride [Moles/Vol] 102 mmol/L Normal 98-107 [facility] Comment on above: Performed By: #### L [id number] ####[facility] [place] [address] CO2 [Moles/Vol] 26 mmol/L Normal 21-31 [facility] Comment on above: Performed By: #### L [id number] ####[facility] ([facility])[address] [place] [address] Creatinine [Mass/Vol] 0.84 mg/dL Normal 0.70-1.30 [facility] Comment on above: Performed By: #### L [id number] ####[facility] ([facility])[address] [place] [address] GLOMERULAR FILTRATION RATE ML/MIN/1.73 SQ M.PREDICTED 106.2 mL/min/1.73m*2 Normal >60.0 [facility] Comment on above: Result Comment: The [facility]???s estimated glomerular filtration rate (eGFR) will no [...] of individuals. Performed By: #### L [id number] ####[facility] [place] [address] Glucose [Mass/Vol] 93 mg/dL Normal 70-100 [facility] Comment on above: Performed By: #### L [id number] ####[facility] [place] [address] Potassium [Moles/Vol] 4.3 mmol/L Normal 3.5-5.1 [facility] Comment on above: Performed By: #### L [id number] ####[facility] [place] [address] Protein [Mass/Vol] 6.2 g/dL Normal 6.0-8.3 [facility] Comment on above: Performed By: #### L [id number] ####[facility] ([facility])[address] [place] [address] Sodium [Moles/Vol] 135 mmol/L Low 136-145 [facility] Comment on above: Performed By: #### L [id number] ####[facility] ([facility])[address] [place] [address] Urea nitrogen [Mass/Vol] 15 mg/dL Normal 7-25 [facility] Comment on above: Performed By: #### L [id number] ####[facility] ([facility])[address] [place] [address] UREA NITROGEN/CREATININE (MASS RATIO) IN SER/PLAS 17.9 Normal [facility] Comment on above: Performed By: #### L [id number] ####[facility] ([facility])[address] [place] [address] MAGNESIUMon 06-25-2023 Magnesium [Mass/Vol] 1.9 mg/dL Normal 1.9-2.7 [facility] Comment on above: Performed By: #### L [id number] ####[facility] ([facility])[address] [place] [address] MRSA/MSSA DNA NASALon 2023 MRSA DNA Negative Normal Negative [facility] Comment on above: Order Comment: Testi ng [...] preclude nasal colonization. Performed By: #### L [id number] ####[facility] ([facility])[address] [place] [address] MSSA DNA Negative Normal Negative [facility] Comment on above: Order Comment: Testi ng [...] preclude nasal colonization. Performed By: #### L [id number] ####[facility] ([employer])[address] [place] [address] PROTIME-INRon 06-25-2023 INR IN PPP BY COAGULATION ASSAY 1.02 Normal 0.90-1.10 [facility] Comment on above: Result Comment: [facility] P [...] CHEST 1995;108:231S-246S. Performed By: #### L [id number] ####[facility] [employer] [place] [address] PROTHROMBIN TIME (PT) IN PPP BY COAGULATION ASSAY 13.4 Seconds Normal 12.3-14.8 [facility] Comment on above: Performed By: #### L [id number] ####[facility] (BEAKER)[address] [place] [address] TYPE AND SCREENon 06-25-2023 AB SCREEN Negative Normal [facility] Comment on above: Performed By: #### L [id number] ####[facility], ABO group Nom (Bld) A Normal [facility] Comment on above: Performed By: #### L [id number] ####[facility], RH TYPE IN BLOOD Negative Normal [facility] Comment on above: Performed By: #### L [id number] ####[facility], URINALYSISon 06-25-2023 BILIRUBIN, TOTAL PRESENCE IN URINE Negative Normal Negative [facility] Comment on above: Performed By: #### L [id number] ####[facility] ([facility])[address] [place] [address] Clarity (U) Clear Normal Clear [facility] Comment on above: Performed By: #### L [id number] ####[facility] ([facility])[address] [place] [address] Color (U) Kylie Abnormal Yellow [facility] Comment on above: Performed By: #### L [id number] ####[facility] ([facility])[address] [place] [address] Glucose (U) [Mass/Vol] Negative Normal Negative [facility] Comment on above: Performed By: #### L [id number] ####[facility] ([facility])[address] [place] [address] HEMOGLOBIN PRESENCE IN URINE Negative Normal Negative [facility] Comment on above: Performed By: #### L [id number] ####[facility] [place] [address] Ketones Ql (U) Negative Normal Negative [facility] Comment on above: Performed By: #### L [id number] ####[facility] [place] [address] LEUKOCYTE ESTERASE PRESENCE IN URINE BY TEST STRIP Negative Normal Negative [facility] Comment on above: Performed By: #### L [id number] ####[facility] ([facility])[address] [place] [address] NITRITE PRESENCE IN URINE Negative Normal Negative [facility] Comment on above: Performed By: #### L [id number] ####[facility] ([facility])[address] [place] [address] pH (U) 5.0 [pH] Normal 5.0-8.0 [facility] Comment on above: Performed By: #### L [id number] ####[facility] ([facility])[address] [place] [address] Protein (U) [Mass/Vol] 100 mg/dL Abnormal Negative [facility] Comment on above: Performed By: #### L [id number] ####[facility] ([facility])[address] [place] [address] Specific gravity (U) [Rel density] 1.033 High 1.015-1.020 [facility] Comment on above: Performed By: #### L [id number] ####[facility] ([facility])[address] [place] [address] UROBILINOGEN (EU/DL) IN URINE 2.0 EU/dL Abnormal Negative [facility] Comment on above: Performed By: #### L [id number] ####[facility] ([facility])[address] [place] [address] URINALYSIS MICROSCOPICon CALCIUM OXALATE CRYSTALS (#/HPF) IN URINE Occasional Abnormal None Seen [facility] Comment on above: Performed By: #### L [id number] ####[facility] ([facility])[address] [place] [address] CASTS IN URINE Normal [facility] Comment on above: Performed By: #### L [id number] ####[facility] ([facility])[address] [place] [address] CRYSTALS IN URINE Present Abnormal None Seen [facility] Comment on above: Performed By: #### L [id number] ####[facility] (BEAKER)[address] [place] [address] MUCUS (#/HPF) IN URINE SEDIMENT Moderate Abnormal None Seen, Occasional, Few [facility] Comment on above: Performed By: #### L [id number] ####[facility] (BEAKER)[address] [place] [address] RBC (#/HPF) IN URINE SEDIMENT 3-5 Abnormal None Seen [facility] Comment on above: Performed By: #### L [id number] ####[facility] (BEAKER)[address] [place] [address] SQUAMOUS EPITHELIAL CELLS (#/HPF) IN URINE SEDIMENT Few Abnormal None Seen, Occasional [facility] Comment on above: Performed By: #### L [id number] ####[facility] (BEAKER)[address] [place] [address] WBC (LEUKOCYTE) (#/HPF) IN URINE SEDIMENT 0-2 Abnormal None Seen [facility] Comment on above: Performed By: #### L [id number] ####[facility] (BEAKER)[address] [place] [address] 30on 06-24-2023 30 Normal [facility] 30 Normal [facility] 30 Normal [facility] ANESon 06-24-2023 ANES Normal [facility] CBC WITH AUTO DIFFERENTIALon 06-24-2023 Basophils (Bld) [#/Vol] 0.03 10*3/uL Normal 0.00-0.20 [facility] Comment on above: Performed By: #### L [id number] ####[facility] (BEAKER)[address] [place] [address] Basophils/100 WBC (Bld) 0.4 % Normal 0.0-1.0 [facility] Comment on above: Performed By: #### L [id number] ####[facility] (BEAKER)[address] [place] [address] Eosinophils (Bld) [#/Vol] 0.57 10*3/uL High 0.00-0.50 [facility] Comment on above: Performed By: #### L [id number] ####[facility] [place] [address] Eosinophils/100 WBC (Bld) 7.7 % High 0.0-6.0 [facility] Comment on above: Performed By: #### L [id number] ####[facility] ([facility])[address] [place] [address] Erythrocyte distribution width (RBC) [Ratio] 16.3 % High 11.5-15.0 [facility] Comment on above: Performed By: #### L [id number] ####[facility] ([facility])[address] [place] [address] ERYTHROCYTE MEAN CORPUSCULAR HEMOGLOBIN CONCENTRATION (G/DL) BY AUTOMATED 33.1 g/dL Normal 32.0-35.0 [facility] Comment on above: Performed By: #### L [id number] ####[facility] ([facility])[address] [place] [address] Hematocrit (Bld) [Volume fraction] 35.3 % Low 39.0-55.0 [facility] Comment on above: Performed By: #### L [id number] ####[facility] [place] [address] Hemoglobin (Bld) [Mass/Vol] 11.7 g/dL Low 13.0-17.0 [facility] Comment on above: Performed By: #### L [id number] ####[facility] (BEAKER)[address] [place] [address] Immature granulocytes (Bld) [#/Vol] 0.03 10*3/uL Normal 0.00-0.20 [facility] Comment on above: Performed By: #### L [id number] ####[facility] ([facility]AKER)[address] [place] [address] Immature granulocytes/100 WBC (Bld) 0.4 % Normal 0.0-1.0 [facility] Comment on above: Performed By: #### L [id number] ####[facility] ([facility])[address] [place] [address] Lymphocytes (Bld) [#/Vol] 1.05 10*3/uL Low 1.20-4.00 [facility] Comment on above: Performed By: #### L [id number] ####[facility] ([facility]ER)[address] [place] [address] Lymphocytes/100 WBC (Bld) 14.2 % Low 20.0-45.0 [facility] Comment on above: Performed By: #### L [id number] ####[facility] ([facility]ER)[address] [place] [address] MCH (RBC) [Entitic mass] 29.3 pg Normal 27.0-33.0 [facility] Comment on above: Performed By: #### L [id number] ####[facility] (BEAKER)[address] [place] [address] MCV (RBC) [Entitic vol] 88.5 fL Normal 82.0-98.0 [facility] Comment on above: Performed By: #### L [id number] ####[facility] ([facility]ER)[address] [place] [address] Monocytes (Bld) [#/Vol] 0.50 10*3/uL Normal 0.10-1.00 [facility] Comment on above: Performed By: #### L [id number] ####[facility] ([facility]ER)[address] [place] [address] Monocytes/100 WBC (Bld) 6.8 % Normal 5.0-12.0 [facility] Comment on above: Performed By: #### L [id number] ####[facility] ([facility]ER)[address] [place] [address] Neutrophils (Bld) [#/Vol] 5.20 10*3/uL Normal 1.60-7.60 [facility] Comment on above: Performed By: #### L [id number] ####[facility] ([facility]ER)[address] [place] [address] Neutrophils/100 WBC (Bld) 70.5 % Normal 40.0-72.0 [facility] Comment on above: Performed By: #### L [id number] ####[facility] ([facility])[address] [place] [address] NRBC (PER 100 WBCS) BY AUTOMATED COUNT 0.0 % Normal 0 [facility] Comment on above: Performed By: #### L [id number] ####[facility] ([facility])[address] [place] [address] PLATELETS (10*3/UL) IN BLOOD AUTOMATED COUNT 141 10*3/uL Low 150-400 [facility] Comment on above: Performed By: #### L [id number] ####[facility] ([facility])[address] [place] [address] RBC (Bld) [#/Vol] 3.99 10*6/uL Low 4.20-5.70 [facility] Comment on above: Performed By: #### L [id number] ####[facility] ([facility])[address] [place] [address] WBC (Bld) [#/Vol] 7.38 10*3/uL Normal 4.00-10.60 [facility] Comment on above: Performed By: #### L [id number] ####[facility] ([facility])[address] [place] [address] COMPREHENSIVE METABOLIC PANE Braulio 06-24-2023 Albumin [Mass/Vol] 4.1 g/dL Normal 3.5-5.7 [facility] Comment on above: Performed By: #### L [id number] ####[facility] [place] [address] ALP [Catalytic activity/Vol] 53 U/L Normal 34-104 [facility] Comment on above: Performed By: #### L [id number] ####[facility] ([facility])[address] [place] [address] ALT [Catalytic activity/Vol] 12 U/L Normal 7-52 [facility] Comment on above: Performed By: #### L [id number] ####[facility] [place] [address] Anion gap [Moles/Vol] 12 mmol/L Normal 7-20 [facility] Comment on above: Performed By: #### L [id number] ####[facility] ([facility])[address] [place] [address] AST [Catalytic activity/Vol] 11 U/L Low 13-39 [facility] Comment on above: Performed By: #### L [id number] ####[facility] ([facility])[address] [place] [address] Bilirubin [Mass/Vol] 0.9 mg/dL Normal 0.3-1.0 [facility] Comment on above: Performed By: #### L [id number] ####[facility] ([facility])[address] [place] [address] Calcium [Mass/Vol] 9.0 mg/dL Normal 8.6-10.3 [facility] Comment on above: Performed By: #### L [id number] ####[facility] ([facility])[address] [place] [address] Chloride [Moles/Vol] 100 mmol/L Normal 98-107 [facility] Comment on above: Performed By: #### L [id number] ####[facility] [place] [address] CO2 [Moles/Vol] 26 mmol/L Normal 21-31 [facility] Comment on above: Performed By: #### L [id number] ####[facility] [place] [address] Creatinine [Mass/Vol] 0.84 mg/dL Normal 0.70-1.30 [facility] Comment on above: Performed By: #### L [id number] ####[facility] [place] [address] GLOMERULAR FILTRATION RATE ML/MIN/1.73 SQ M.PREDICTED 106.2 mL/min/1.73m*2 Normal >60.0 [facility] Comment on above: Result Comment: The [facility]???s estimated glomerular filtration rate (eGFR) will no [...] of individuals. Performed By: #### L [id number] ####[facility] ([facility])[address] [place] [address] Glucose [Mass/Vol] 95 mg/dL Normal 70-100 [facility] Comment on above: Performed By: #### L [id number] ####[facility] ([facility])[address] [place] [address] Potassium [Moles/Vol] 3.9 mmol/L Normal 3.5-5.1 [facility] Comment on above: Performed By: #### L [id number] ####[facility] ([facility])[address] [place] [address] Protein [Mass/Vol] 6.5 g/dL Normal 6.0-8.3 [facility] Comment on above: Performed By: #### L [id number] ####[facility] [place] [address] Sodium [Moles/Vol] 134 mmol/L Low 136-145 [facility] Comment on above: Performed By: #### L [id number] ####[facility] [place] [address] Urea nitrogen [Mass/Vol] 12 mg/dL Normal 7-25 [facility] Comment on above: Performed By: #### L [id number] ####[facility] [place] [address] UREA NITROGEN/CREATININE (MASS RATIO) IN SER/PLAS 14.3 Normal [facility] Comment on above: Performed By: #### L [id number] ####[facility] ([facility])[address] [place] [address] Documentationon 06-24-2023 Documentation Normal [facility] HPon 06-24-2023 HP Normal [facility] MAGNESIUMon 06-24-2023 Magnesium [Mass/Vol] 1.9 mg/dL Normal 1.9-2.7 [facility] Comment on above: Performed By: #### L [id number] ####[facility] ([facility])[address] [place] [address] 30on 06-23-2023 30 Normal [facility] 30 Normal [facility] CBC WITH AUTO DIFFERENTIALon 06-23-2023 Basophils (Bld) [#/Vol] 0.04 10*3/uL Normal 0.00-0.20 [facility] Comment on above: Performed By: #### L [id number] ####[facility] ([facility])[address] [place] [address] Basophils/100 WBC (Bld) 0.5 % Normal 0.0-1.0 [facility] Comment on above: Performed By: #### L [id number] ####[facility] ([facility])[address] [place] [address] Eosinophils (Bld) [#/Vol] 0.56 10*3/uL High 0.00-0.50 [facility] Comment on above: Performed By: #### L [id number] ####[facility] [place] [address] Eosinophils/100 WBC (Bld) 7.5 % High 0.0-6.0 [facility] Comment on above: Performed By: #### L [id number] ####[facility] [place] [address] Erythrocyte distribution width (RBC) [Ratio] 16.7 % High 11.5-15.0 [facility] Comment on above: Performed By: #### L [id number] ####[facility] (BEAKER)[address] [place] [address] ERYTHROCYTE MEAN CORPUSCULAR HEMOGLOBIN CONCENTRATION (G/DL) BY AUTOMATED 33.2 g/dL Normal 32.0-35.0 [facility] Comment on above: Performed By: #### L [id number] ####[facility] ([facility]ER)[address] [place] [address] Hematocrit (Bld) [Volume fraction] 34.9 % Low 39.0-55.0 [facility] Comment on above: Performed By: #### L [id number] ####[facility] ([facility]ER)[address] [place] [address] Hemoglobin (Bld) [Mass/Vol] 11.6 g/dL Low 13.0-17.0 [facility] Comment on above: Performed By: #### L [id number] ####[facility] ([facility])[address] [place] [address] Immature granulocytes (Bld) [#/Vol] 0.03 10*3/uL Normal 0.00-0.20 [facility] Comment on above: Performed By: #### L [id number] ####[facility] ([facility])[address] [place] [address] Immature granulocytes/100 WBC (Bld) 0.4 % Normal 0.0-1.0 [facility] Comment on above: Performed By: #### L [id number] ####[facility] ([facility])[address] [place] [address] Lymphocytes (Bld) [#/Vol] 1.08 10*3/uL Low 1.20-4.00 [facility] Comment on above: Performed By: #### L [id number] ####[facility] ([facility]ER)[address] [place] [address] Lymphocytes/100 WBC (Bld) 14.5 % Low 20.0-45.0 [facility] Comment on above: Performed By: #### L [id number] ####[facility] [place] [address] MCH (RBC) [Entitic mass] 29.6 pg Normal 27.0-33.0 [facility] Comment on above: Performed By: #### L [id number] ####[facility] ([facility])[address] [place] [address] MCV (RBC) [Entitic vol] 89.0 fL Normal 82.0-98.0 [facility] Comment on above: Performed By: #### L [id number] ####[facility] [place] [address] Monocytes (Bld) [#/Vol] 0.50 10*3/uL Normal 0.10-1.00 [facility] Comment on above: Performed By: #### L [id number] ####[facility] ([facility]ER)[address] [place] [address] Monocytes/100 WBC (Bld) 6.7 % Normal 5.0-12.0 [facility] Comment on above: Performed By: #### L [id number] ####[facility] ([facility]ER)[address] [place] [address] Neutrophils (Bld) [#/Vol] 5.24 10*3/uL Normal 1.60-7.60 [facility] Comment on above: Performed By: #### L [id number] ####[facility] (BEAKER)[address] [place] [address] Neutrophils/100 WBC (Bld) 70.4 % Normal 40.0-72.0 [facility] Comment on above: Performed By: #### L [id number] ####[facility] ([facility]ER)[address] [place] [address] NRBC (PER 100 WBCS) BY AUTOMATED COUNT 0.0 % Normal 0 [facility] Comment on above: Performed By: #### L [id number] ####[facility] ([facility])[address] [place] [address] PLATELETS (10*3/UL) IN BLOOD AUTOMATED COUNT 120 10*3/uL Low 150-400 [facility] Comment on above: Performed By: #### L [id number] ####[facility] ([facility])[address] [place] [address] RBC (Bld) [#/Vol] 3.92 10*6/uL Low 4.20-5.70 [facility] Comment on above: Performed By: #### L [id number] ####[facility] ([facility])[address] [place] [address] WBC (Bld) [#/Vol] 7.45 10*3/uL Normal 4.00-10.60 [facility] Comment on above: Performed By: #### L [id number] ####[facility] ([facility])[address] [place] [address] COMPREHENSIVE METABOLIC PANE Braulio 06-23-2023 Albumin [Mass/Vol] 4.1 g/dL Normal 3.5-5.7 [facility] Comment on above: Performed By: #### L [id number] ####[facility] ([facility])[address] [place] [address] ALP [Catalytic activity/Vol] 52 U/L Normal 34-104 [facility] Comment on above: Performed By: #### L [id number] ####[facility] ([facility])[address] [place] [address] ALT [Catalytic activity/Vol] 12 U/L Normal 7-52 [facility] Comment on above: Performed By: #### L [id number] ####[facility] ([facility])[address] [place] [address] Anion gap [Moles/Vol] 9 mmol/L Normal 7-20 [facility] Comment on above: Performed By: #### L [id number] ####[facility] [place] [address] AST [Catalytic activity/Vol] 9 U/L Low 13-39 [facility] Comment on above: Performed By: #### L [id number] ####[facility] [place] [address] Bilirubin [Mass/Vol] 1.0 mg/dL Normal 0.3-1.0 [facility] Comment on above: Performed By: #### L [id number] ####[facility] ([facility])[address] [place] [address] Calcium [Mass/Vol] 8.7 mg/dL Normal 8.6-10.3 [facility] Comment on above: Performed By: #### L [id number] ####[facility] [place] [address] Chloride [Moles/Vol] 101 mmol/L Normal 98-107 [facility] Comment on above: Performed By: #### L [id number] ####[facility] ([facility])[address] [place] [address] CO2 [Moles/Vol] 27 mmol/L Normal 21-31 [facility] Comment on above: Performed By: #### L [id number] ####[facility] ([facility])[address] [place] [address] Creatinine [Mass/Vol] 0.77 mg/dL Normal 0.70-1.30 [facility] Comment on above: Performed By: #### L [id number] ####[facility] ([facility])[address] [place] [address] GLOMERULAR FILTRATION RATE ML/MIN/1.73 SQ M.PREDICTED 109.1 mL/min/1.73m*2 Normal >60.0 [facility] Comment on above: Result Comment: The [facility]???s estimated glomerular filtration rate (eGFR) will no [...] of individuals. Performed By: #### L [id number] ####[facility] ([facility])[address] [place] [address] Glucose [Mass/Vol] 106 mg/dL High 70-100 [facility] Comment on above: Performed By: #### L [id number] ####[facility] ([facility])[address] [place] [address] Potassium [Moles/Vol] 4.1 mmol/L Normal 3.5-5.1 [facility] Comment on above: Performed By: #### L [id number] ####[facility] ([facility])[address] [place] [address] Protein [Mass/Vol] 6.2 g/dL Normal 6.0-8.3 [facility] Comment on above: Performed By: #### L [id number] ####[facility] ([facility])[address] [place] [address] Sodium [Moles/Vol] 133 mmol/L Low 136-145 [facility] Comment on above: Performed By: #### L [id number] ####[facility] ([facility])[address] [place] [address] Urea nitrogen [Mass/Vol] 13 mg/dL Normal 7-25 [facility] Comment on above: Performed By: #### L [id number] ####[facility] ([facility])[address] [place] [address] UREA NITROGEN/CREATININE (MASS RATIO) IN SER/PLAS 16.9 Normal [facility] Comment on above: Performed By: #### L [id number] ####[facility] ([facility])[address] [place] [address] CONSULTon 06-23-2023 CONSULT Normal [facility] 30on 06-22-2023 30 Normal [facility] 30 Normal [facility] APTTon 06-22-2023 ACTIVATED PARTIAL THROMBOPLASTIN TIME IN PPP BY COAGULATION ASSAY 31.2 Seconds Normal 25.0-35.0 [facility] Comment on above: Result Comment: Clin ical significance of the APTT is questionable in the presence of heparin. Performed By: #### L [id number] ####[facility] ([facility])[address] [place] [address] CBC WITH AUTO DIFFERENTIALon 06-22-2023 Basophils (Bld) [#/Vol] 0.03 10*3/uL Normal 0.00-0.20 [facility] Comment on above: Performed By: #### L [id number] ####[facility] [place] [address] Basophils/100 WBC (Bld) 0.4 % Normal 0.0-1.0 [facility] Comment on above: Performed By: #### L [id number] ####[facility] [place] [address] Eosinophils (Bld) [#/Vol] 0.39 10*3/uL Normal 0.00-0.50 [facility] Comment on above: Performed By: #### L [id number] ####[facility] [place] [address] Eosinophils/100 WBC (Bld) 5.0 % Normal 0.0-6.0 [facility] Comment on above: Performed By: #### L [id number] ####[facility] [place] [address] Erythrocyte distribution width (RBC) [Ratio] 16.3 % High 11.5-15.0 [facility] Comment on above: Performed By: #### L [id number] ####[facility] [place] [address] ERYTHROCYTE MEAN CORPUSCULAR HEMOGLOBIN CONCENTRATION (G/DL) BY AUTOMATED 33.1 g/dL Normal 32.0-35.0 [facility] Comment on above: Performed By: #### L [id number] ####[facility] [place] [address] Hematocrit (Bld) [Volume fraction] 35.6 % Low 39.0-55.0 [facility] Comment on above: Performed By: #### L [id number] ####[facility] ([facility])[address] [place] [address] Hemoglobin (Bld) [Mass/Vol] 11.8 g/dL Low 13.0-17.0 [facility] Comment on above: Performed By: #### L [id number] ####[facility] ([facility])[address] [place] [address] Immature granulocytes (Bld) [#/Vol] 0.02 10*3/uL Normal 0.00-0.20 [facility] Comment on above: Performed By: #### L [id number] ####[facility] ([facility])[address] [place] [address] Immature granulocytes/100 WBC (Bld) 0.3 % Normal 0.0-1.0 [facility] Comment on above: Performed By: #### L [id number] ####[facility] [place] [address] Lymphocytes (Bld) [#/Vol] 0.72 10*3/uL Low 1.20-4.00 [facility] Comment on above: Performed By: #### L [id number] ####[facility] [place] [address] Lymphocytes/100 WBC (Bld) 9.2 % Low 20.0-45.0 [facility] Comment on above: Performed By: #### L [id number] ####[facility] ([facility])[address] [place] [address] MCH (RBC) [Entitic mass] 29.0 pg Normal 27.0-33.0 [facility] Comment on above: Performed By: #### L [id number] ####[facility] ([facility])[address] [place] [address] MCV (RBC) [Entitic vol] 87.5 fL Normal 82.0-98.0 [facility] Comment on above: Performed By: #### L [id number] ####[facility] ([facility])[address] [place] [address] Monocytes (Bld) [#/Vol] 0.41 10*3/uL Normal 0.10-1.00 [facility] Comment on above: Performed By: #### L [id number] ####[facility] ([facility])[address] [place] [address] Monocytes/100 WBC (Bld) 5.2 % Normal 5.0-12.0 [facility] Comment on above: Performed By: #### L [id number] ####[facility] ([facility])[address] [place] [address] Neutrophils (Bld) [#/Vol] 6.24 10*3/uL Normal 1.60-7.60 [facility] Comment on above: Performed By: #### L [id number] ####[facility] ([facility])[address] [place] [address] Neutrophils/100 WBC (Bld) 79.9 % High 40.0-72.0 [facility] Comment on above: Performed By: #### L [id number] ####[facility] ([facility])[address] [place] [address] NRBC (PER 100 WBCS) BY AUTOMATED COUNT 0.0 % Normal 0 [facility] Comment on above: Performed By: #### L [id number] ####[facility] ([facility])[address] [place] [address] PLATELETS (10*3/UL) IN BLOOD AUTOMATED COUNT 110 10*3/uL Low 150-400 [facility] Comment on above: Performed By: #### L [id number] ####[facility] ([facility])[address] [place] [address] RBC (Bld) [#/Vol] 4.07 10*6/uL Low 4.20-5.70 [facility] Comment on above: Performed By: #### L [id number] ####[facility] ([facility])[address] [place] [address] WBC (Bld) [#/Vol] 7.81 10*3/uL Normal 4.00-10.60 [facility] Comment on above: Performed By: #### L [id number] ####[facility] ([facility])[address] [place] [address] CKon 06-22-2023 CREATINE KINASE (U/L) IN SER/PLAS 22.0 U/L Low 30.0-223.0 [facility] Comment on above: Performed By: #### L [id number] ####[facility] ([facility])[address] [place] [address] COMPREHENSIVE METABOLIC PANE Braulio 06-22-2023 Albumin [Mass/Vol] 4.0 g/dL Normal 3.5-5.7 [facility] Comment on above: Performed By: #### L [id number] ####[facility] ([facility])[address] [place] [address] ALP [Catalytic activity/Vol] 52 U/L Normal 34-104 [facility] Comment on above: Performed By: #### L [id number] ####[facility] ([facility])[address] [place] [address] ALT [Catalytic activity/Vol] 13 U/L Normal 7-52 [facility] Comment on above: Performed By: #### L [id number] ####[facility] ([facility])[address] [place] [address] Anion gap [Moles/Vol] 12 mmol/L Normal 7-20 [facility] Comment on above: Performed By: #### L [id number] ####[facility] ([facility])[address] [place] [address] AST [Catalytic activity/Vol] 9 U/L Low 13-39 [facility] Comment on above: Performed By: #### L [id number] ####[facility] ([facility])[address] [place] [address] Bilirubin [Mass/Vol] 1.1 mg/dL High 0.3-1.0 [facility] Comment on above: Performed By: #### L [id number] ####[facility] ([facility])[address] [place] [address] Calcium [Mass/Vol] 9.1 mg/dL Normal 8.6-10.3 [facility] Comment on above: Performed By: #### L [id number] ####[facility] ([facility])[address] [place] [address] Chloride [Moles/Vol] 100 mmol/L Normal 98-107 [facility] Comment on above: Performed By: #### L [id number] ####[facility] ([facility])[address] [place] [address] CO2 [Moles/Vol] 26 mmol/L Normal 21-31 [facility] Comment on above: Performed By: #### L [id number] ####[facility] ([facility])[address] [place], [place] [address] Creatinine [Mass/Vol] 0.82 mg/dL Normal 0.70-1.30 [facility] Comment on above: Performed By: #### L [id number] ####[facility] ([facility])[address] [place] [address] GLOMERULAR FILTRATION RATE ML/MIN/1.73 SQ M.PREDICTED 107.0 mL/min/1.73m*2 Normal >60.0 [facility] Comment on above: Result Comment: The [facility]???s estimated glomerular filtration rate (eGFR) will no [...] of individuals. Performed By: #### L [id number] ####[facility] ([facility])[address] [place] [address] Glucose [Mass/Vol] 161 mg/dL High 70-100 [facility] Comment on above: Performed By: #### L [id number] ####[facility] ([facility])[address] [place] [address] Potassium [Moles/Vol] 4.0 mmol/L Normal 3.5-5.1 [facility] Comment on above: Performed By: #### L [id number] ####[facility] ([facility])[address] [place] [address] Protein [Mass/Vol] 6.3 g/dL Normal 6.0-8.3 [facility] Comment on above: Performed By: #### L [id number] ####[facility] ([facility])[address] [place] [address] Sodium [Moles/Vol] 134 mmol/L Low 136-145 [facility] Comment on above: Performed By: #### L [id number] ####[facility] ([facility])[address] [place] [address] Urea nitrogen [Mass/Vol] 14 mg/dL Normal 7-25 [facility] Comment on above: Performed By: #### L [id number] ####[facility] ([facility])[address] [place] [address] UREA NITROGEN/CREATININE (MASS RATIO) IN SER/PLAS 17.1 [facility] Comment on above: Performed By: #### L [id number] ####[facility] ([facility])[address] [place] [address] CONSULTon 06-22-2023 CONSULT Normal [facility] MAGNESIUMon 06-22-2023 Magnesium [Mass/Vol] 1.8 mg/dL Low 1.9-2.7 [facility] Comment on above: Performed By: #### L [id number] ####[facility] ([employer])[address] [place] [address] PROTIME-INRon 06-22-2023 INR IN PPP BY COAGULATION ASSAY 1.05 Normal 0.90-1.10 [facility] Comment on above: Result Comment: ACCC P [...] CHEST [id number]. Performed By: #### L [id number] ####[facility] ([employer])[address] [place] [address] PROTHROMBIN TIME (PT) IN PPP BY COAGULATION ASSAY 13.7 Seconds Normal 12.3-14.8 [facility] Comment on above: Performed By: #### L [id number] ####[facility] ([employer])[address] [place] [address] 30on 06-21-2023 30 [facility] 30 [facility] 30 The patient is Moder ately Unstable - Medium risk of patient condition declining or worsening The patient's goals for the shift include COMFORT The clinical goals for the shift include VSS [facility] 30 [facility] 30 The patient is Moder ately Stable - Low risk of patient condition declining or worsening The patient's goals for the shift include COMFORT The clinical goals for the shift include VSS Normal [facility] ANESon 06-21-2023 ANES Normal [facility] B-TYPE NATRIURETIC PEPTIDEon 06-21-2023 Natriuretic peptide B (Bld) [Mass/Vol] 147 pg/mL High 0-100 [facility] Comment on above: Performed By: #### L [id number] ####[facility] ([facility])[address] [place] [address] BLOOD CULTUREon 06-21-2023 Bacteria identified Cx Nom (Bld) No growth at 5 days Normal [facility] Comment on above: Order Comment: From a different site than #1. Performed By: #### L [id number] ####[facility] ([facility])[address] [place] [address] C-REACTIVE PROTEINon 024 C REACTIVE PROTEIN (MG/L) IN SER/PLAS 23.3 mg/L High 0.0-7.0 [facility] Comment on above: Performed By: #### L [id number] ####[facility] ([facility])[address] [place] [address] CBC WITH AUTO DIFFERENTIALon 06-21-2023 Basophils (Bld) [#/Vol] 0.04 10*3/uL Normal 0.00-0.20 [facility] Comment on above: Performed By: #### L [id number] ####[facility] ([facility])[address] [place] [address] Basophils/100 WBC (Bld) 0.4 % Normal 0.0-1.0 [facility] Comment on above: Performed By: #### L [id number] ####[facility] ([facility])[address] [place] [address] Eosinophils (Bld) [#/Vol] 0.24 10*3/uL Normal 0.00-0.50 [facility] Comment on above: Performed By: #### L [id number] ####[facility] ([facility])[address] [place] [address] Eosinophils/100 WBC (Bld) 2.7 % Normal 0.0-6.0 [facility] Comment on above: Performed By: #### L [id number] ####[facility] ([facility])[address] [place] [address] Erythrocyte distribution width (RBC) [Ratio] 16.2 % High 11.5-15.0 [facility] Comment on above: Performed By: #### L [id number] ####[facility] ([facility])[address] [place] [address] ERYTHROCYTE MEAN CORPUSCULAR HEMOGLOBIN CONCENTRATION (G/DL) BY AUTOMATED 33.1 g/dL Normal 32.0-35.0 [facility] Comment on above: Performed By: #### L [id number] ####[facility] ([facility])[address] [place] [address] Hematocrit (Bld) [Volume fraction] 35.6 % Low 39.0-55.0 [facility] Comment on above: Performed By: #### L [id number] ####[facility] ([facility])[address] [place] [address] Hemoglobin (Bld) [Mass/Vol] 11.8 g/dL Low 13.0-17.0 [facility] Comment on above: Performed By: #### L [id number] ####[facility] ([facility])[address] [place] [address] Immature granulocytes (Bld) [#/Vol] 0.03 10*3/uL Normal 0.00-0.20 [facility] Comment on above: Performed By: #### L [id number] ####[facility] ([facility])[address] [place] [address] Immature granulocytes/100 WBC (Bld) 0.3 % Normal 0.0-1.0 [facility] Comment on above: Performed By: #### L [id number] ####[facility] ([facility])[address] [place] [address] Lymphocytes (Bld) [#/Vol] 1.23 10*3/uL Normal 1.20-4.00 [facility] Comment on above: Performed By: #### L [id number] ####[facility] ([facility])[address] [place] [address] Lymphocytes/100 WBC (Bld) 13.7 % Low 20.0-45.0 [facility] Comment on above: Performed By: #### L [id number] ####[facility] ([facility])[address] [place] [address] MCH (RBC) [Entitic mass] 29.4 pg Normal 27.0-33.0 [facility] Comment on above: Performed By: #### L [id number] ####[facility] ([facility])[address] [place] [address] MCV (RBC) [Entitic vol] 88.6 fL Normal 82.0-98.0 [facility] Comment on above: Performed By: #### L [id number] ####[facility] ([facility])[address] [place] [address] Monocytes (Bld) [#/Vol] 0.52 10*3/uL Normal 0.10-1.00 [facility] Comment on above: Performed By: #### L [id number] ####[facility] ([facility])[address] [place] [address] Monocytes/100 WBC (Bld) 5.8 % Normal 5.0-12.0 [facility] Comment on above: Performed By: #### L [id number] ####[facility] ([facility])[address] [place] [address] Neutrophils (Bld) [#/Vol] 6.92 10*3/uL Normal 1.60-7.60 [facility] Comment on above: Performed By: #### L [id number] ####[facility] ([facility])[address] [place] [address] Neutrophils/100 WBC (Bld) 77.1 % High 40.0-72.0 [facility] Comment on above: Performed By: #### L [id number] ####[facility] ([facility])[address] [address] NRBC (PER 100 WBCS) BY AUTOMATED COUNT 0.0 % Normal 0 [facility] Comment on above: Performed By: #### L [id number] ####[facility] ([facility])[address] [place] [address] PLATELETS (10*3/UL) IN BLOOD AUTOMATED COUNT 109 10*3/uL Low 150-400 [facility] Comment on above: Performed By: #### L [id number] ####[facility] ([facility])[address] [place] [address] RBC (Bld) [#/Vol] 4.02 10*6/uL Low 4.20-5.70 [facility] Comment on above: Performed By: #### L [id number] ####[facility] ([facility])[address] [place], [place] [address] WBC (Bld) [#/Vol] 8.98 10*3/uL Normal 4.00-10.60 [facility] Comment on above: Performed By: #### L [id number] ####[facility] ([facility])[address] [place], [place] [address] COMPREHENSIVE METABOLIC PANE Braulio 06-21-2023 Albumin [Mass/Vol] 4.0 g/dL Normal 3.5-5.7 [facility] Comment on above: Performed By: #### L [id number] ####[facility] [place] [address] ALP [Catalytic activity/Vol] 47 U/L Normal 34-104 [facility] Comment on above: Performed By: #### L [id number] ####[facility] [place] [address] ALT [Catalytic activity/Vol] 14 U/L Normal 7-52 [facility] Comment on above: Performed By: #### L [id number] ####[facility] ([facility])[address] [place] [address] Anion gap [Moles/Vol] 11 mmol/L Normal 7-20 [facility] Comment on above: Performed By: #### L [id number] ####[facility] ([facility])[address] [place] [address] AST [Catalytic activity/Vol] 11 U/L Low 13-39 [facility] Comment on above: Performed By: #### L [id number] ####[facility] ([facility])[address] [place] [address] Bilirubin [Mass/Vol] 1.1 mg/dL High 0.3-1.0 [facility] Comment on above: Performed By: #### L [id number] ####[facility] ([facility])[address] [place] [address] Calcium [Mass/Vol] 8.9 mg/dL Normal 8.6-10.3 [facility] Comment on above: Performed By: #### L [id number] ####[facility] ([facility])[address] [place] [address] Chloride [Moles/Vol] 100 mmol/L Normal 98-107 [facility] Comment on above: Performed By: #### L [id number] ####[facility] ([facility])[address] [place] [address] CO2 [Moles/Vol] 28 mmol/L Normal 21-31 [facility] Comment on above: Performed By: #### L [id number] ####[facility] ([facility])[address] [place] [address] Creatinine [Mass/Vol] 0.83 mg/dL Normal 0.70-1.30 [facility] Comment on above: Performed By: #### L [id number] ####[facility] ([facility])[address] [place] [address] GLOMERULAR FILTRATION RATE ML/MIN/1.73 SQ M.PREDICTED 106.6 mL/min/1.73m*2 Normal >60.0 [facility] Comment on above: Result Comment: The [facility]???s estimated glomerular filtration rate (eGFR) will no [...] of individuals. Performed By: #### L [id number] ####[facility] ([facility])[address] [facility] [place] [address] Glucose [Mass/Vol] 101 mg/dL High 70-100 [facility] Comment on above: Performed By: #### L [id number] ####[facility] ([facility])[address] [facility] [place] [address] Potassium [Moles/Vol] 4.2 mmol/L Normal 3.5-5.1 [facility] Comment on above: Performed By: #### L [id number] ####[facility] ([facility])[address] [address] Protein [Mass/Vol] 6.1 g/dL Normal 6.0-8.3 [facility] Comment on above: Performed By: #### L [id number] ####[facility] ([facility])[address] [facility] [place] [address] Sodium [Moles/Vol] 135 mmol/L Low 136-145 [facility] Comment on above: Performed By: #### L [id number] ####[facility] ([facility])[address] [facility] [place] [address] Urea nitrogen [Mass/Vol] 14 mg/dL Normal 7-25 [facility] Comment on above: Performed By: #### L [id number] ####[facility] ([facility])[address] [place] [address] UREA NITROGEN/CREATININE (MASS RATIO) IN SER/PLAS 16.9 Normal [facility] Comment on above: Performed By: #### L [id number] ####[facility] ([facility])[address] [place] [address] CONSULTon 06-21-2023 CONSULT Normal [facility] CONSULT Normal [facility] CONSULT Normal [facility] CT ABDOMEN PELVIS W IV CONTR Kyle 06-21-2023 CT ABDOMEN PELVIS W IV CONTRAST Invalid Interpretation Code [facility] CT CHEST W IV CONTRASTon CT CHEST W IV CONTRAST Invalid Interpretation Code [facility] CT HEAD WO IV CONTRASTon CT HEAD WO IV CONTRAST Invalid Interpretation Code [facility] CT SOFT TISSUE NECK WO IV CO NTRASTon 06-21-2023 CT SOFT TISSUE NECK WO IV CONTRAST Invalid Interpretation Code [facility] HPon 06-21-2023 HP Normal [facility] HP Normal [facility] HP Normal [facility] IRON AND TIBCon 06-21-2023 IRON (UG/DL) IN SER/PLAS 54 ug/dL Normal 50-212 [facility] Comment on above: Performed By: #### L [id number] ####[facility] ([facility])[address] [place] [address] IRON BINDING CAPACITY (UG/DL) IN SER/PLAS 304 ug/dL Normal 250-450 [facility] Comment on above: Performed By: #### L [id number] ####[facility] ([facility])[address] [place] [address] IRON BINDING CAPACITY.UNSATURATED (UG/DL) IN SER/PLAS 250.0 ug/dL Normal 155.0-355.0 [facility] Comment on above: Performed By: #### L [id number] ####[facility] ([facility])[address] [place] [address] IRON SATURATION (%) IN SER/PLAS 18 % Low 20-50 [facility] Comment on above: Performed By: #### L [id number] ####[facility] ([facility])[address] [place] [address] MR LUMBAR SPINE W AND WO CON TRASTon 06-21-2023 MR LUMBAR SPINE W AND WO CONTRAST Invalid Interpretation Code [facility] NURSNOTEon 06-21-2023 NURSNOTE Normal [facility] SEDIMENTATION RATEon 024 SEDIMENTATION RATE, ERYTHROCYTE 28 mm/hr High <=10 [facility] Comment on above: Performed By: #### L [id number] ####[facility] ([facility])[address] [place] [address] URINALYSIS WITH REFLEX CULTU REon 06-21-2023 BILIRUBIN, TOTAL PRESENCE IN URINE Negative Normal Negative [facility] Comment on above: Order Comment: Micro scopics not performed on urines with negative chemical reactions unless requested on original order. Performed By: #### L [id number] ####[facility] ([facility])[address] [place] [address] Clarity (U) Clear Normal Clear [facility] Comment on above: Order Comment: Micro scopics not performed on urines with negative chemical reactions unless requested on original order. Performed By: #### L [id number] ####[facility] ([facility])[address] [place] [address] Color (U) Straw Abnormal Yellow [facility] Comment on above: Order Comment: Micro scopics not performed on urines with negative chemical reactions unless requested on original order. Performed By: #### L [id number] ####[facility] ([facility])[address] [place] [address] Glucose (U) [Mass/Vol] Negative Normal Negative [facility] Comment on above: Order Comment: Micro scopics not performed on urines with negative chemical reactions unless requested on original order. Performed By: #### L [id number] ####[facility] ([facility])[address] [place] [address] HEMOGLOBIN PRESENCE IN URINE Negative Normal Negative [facility] Comment on above: Order Comment: Micro scopics not performed on urines with negative chemical reactions unless requested on original order. Performed By: #### L [id number] ####[facility] ([facility])[address] [place] [address] Ketones Ql (U) Negative Normal Negative [facility] Comment on above: Order Comment: Micro scopics not performed on urines with negative chemical reactions unless requested on original order. Performed By: #### L [id number] ####[facility] ([facility])[address] [place] [address] LEUKOCYTE ESTERASE PRESENCE IN URINE BY TEST STRIP Negative Normal Negative [facility] Comment on above: Order Comment: Micro scopics not performed on urines with negative chemical reactions unless requested on original order. Performed By: #### L [id number] ####[facility] ([facility])[address] [place] [address] NITRITE PRESENCE IN URINE Negative Normal Negative [facility] Comment on above: Order Comment: Micro scopics not performed on urines with negative chemical reactions unless requested on original order. Performed By: #### L [id number] ####[facility] ([facility])[address] [place] [address] pH (U) 8.0 [pH] Normal 5.0-8.0 [facility] Comment on above: Order Comment: Micro scopics not performed on urines with negative chemical reactions unless requested on original order. Performed By: #### L [id number] ####[facility] ([facility])[address] [place] [address] Protein (U) [Mass/Vol] Negative Normal Negative [facility] Comment on above: Order Comment: Micro scopics not performed on urines with negative chemical reactions unless requested on original order. Performed By: #### L [id number] ####[facility] ([facility])[address] [place] [address] Specific gravity (U) [Rel density] 1.011 Low 1.015-1.020 [facility] Comment on above: Order Comment: Micro scopics not performed on urines with negative chemical reactions unless requested on original order. Performed By: #### L [id number] ####[facility] ([facility])[address] [place] [address] VANCOMYCIN, RANDOMon 024 VANCOMYCIN (UG/ML) IN SER/PLAS 10.7 ug/mL Low 20.0-40.0 [facility] Comment on above: Performed By: #### L [id number] ####[facility] ([facility])[address] [place] [address] Consultation Noteon 06-20-19 24 Consultation Note [id number] Normal [facility] RAD - CT Reporton 06-20-2023 RAD - CT Report [id number]#[id number] Normal [facility] RAD - MISCon 06-20-2023 RAD - MISC [id number]#[id number] Normal [facility] Coding Summaryon 06-17-2023 Coding Summary [employer]Base 64 OokjnlnbUTb5iVf+PGhlYWQ+PE 1MXELvJ63xeHYwqP6kT8EGQNrN KnlnJDMAMTnQHeZiyaGcRL0ewB NjZXJu IC8+RG8rQYRcBskexKXng2D3hT Y1V52pva4vPZreuIE9TQVwFyOv upnin7gsbFq3LAivZowqVwQc PBEmzK41PPB6gK25Kw25qAWpbX Img4ajdEl2AeHyNENyHJU4tDcv PVvkx2XmRKQaI74btFHyr4M0 EIFvgLxdeNZoUjIikQV4hF4tKH dpaboaz2ushrhtMfb5ci82tPWf h2Y3mIP5Z9NmdpS5CBCliNFa ZzyxqVHMbG4liyqlx3lixoivHs VzCBWmIHu2ORy9GLGxhMwmQjVx CU79JFL6QQNgyzDsR9XmTTUz iCxvKoT5r5H9Mn0EX9UQQsluS9 VNTUFSWTwvdGQ+LC13gi11U3Ll ZvvzIat1DBVfUCF8xNB5jP3b SNFmPIeev2N5oQM0E2IyysNoqh 1lh8ynBZOtGDyyP77goCLoj0S6 TLJfcJF7IXVizOttExGdnJ25 Oyc+QTGnnVmct6AyKvhnn3mhs4 qcePl0YztoCDJfweXmcRdgGSV5 o9FhRb4iRMNbxYL9kJZ0iA7y BgDlHkV0KVasD232JsEesOXqXe jqX90tF0IrdPJ+WAFpZdw8CDPp aHjwPQ8fN1DjVEGawycqbACi zIvlQW1gVPTnthbfANRsnS2gPI QsV0v1JwNfVdK4VOslS6MyEAQq oywjCa35lH3hFzFpQhR2UIwn V0JoqsT1MABgqQTpPNjaCTU5P3 7hs4V2OGKrVQBwYAB9sVM0mD4n bGlnbjogbGVmdDsgdmVydGlj YHwwMCwiN937DVPbcCpvTmGdVL luZyBEYXRlOiAgMDMvMTgvMjAy NDwvdGQ+PWYtIVQ5bBqvBECc iGQnEYslYl4ghYpslHwcDV7qEQ PokbpyZBPioE8uVKWrcWLrjNzl VV0uOZGpknbzp455LoSfLFX5 HLZsaUUgZ4ZicS7jWyGiQFPuBC ZpG1NpvCUaJYepN320FQtqVgH4 LTMpytYaC7RvNYEjoWftEpR0 r5M6Xx7Vd9RkvcwfK3MryHJeSo BuKuzzRJt7K6SxKpjnpHR+PC90 HNQyKN42UAv7GMV0sRrmRDbd PHLcM0JwmS3eDfGkUIHfEOHyPa c+PHRhYmxlIHdpZHRoPScxMDAl ReDviUncCL5sFs6jRHGhPIMl zRckuRVwBiUrm7ciXOCfFWxfYK 9mcIogR2EcqYD8ZUEpv8t7Df23 N84vU4FfsAY+ZMMszHC4pKU2 yP4jMwLuEaJ8NYsiS356TmWprT JxSafwt9obl5gtqPx7YwH6SBPm kpSidRraXXM0t7FdBb91E29t IHdpZHRoPSIxNSUiIHZhbGlnbj 3yoQ6yCt9+IPIkaNX9kVV0jU4u RgWbLiL4UXhhG902JqExdENc Kdzdg4myp6qdeCr4OeQhTBGoyu IpqNckSMU7b8MxPk75O2WaqFdz w0JoDdh7kc00mSEph6N1pSZ8 Q1SpMLOjzemgvFLwmNtwAY3mEF HsyoqwCPFvpL0gVUJiI8p5ZfFx VvF7TRzgO8TsxzY1HOVigUBn LTIpyPPGuJ2ogdywr1hnzzpaVl CjPTUwVZu8SVl6WTDneTvrXoOs LHE8AgH1NFK2eEPivZ4wrHjo yocldV5pVck+YYR5qUEioTVSNS 1lOjwvdGQ+LZEqBEX0wAodQIve GNZxvS3gFXBwR1b5GsUgWdV0 ZLitL3HxbhN2BCYhiMUbPJBcqZ QEiM4xegksu0mffroiBbUrCEKn FDm3ZKw0JSIkdIxlZdTpHEZ6 VuZ5FTI7uOOocU2kjKnndchjjB 9wOyc+EztkbJydIPL2SMl8I2Xs Eum9AXEveShtPM5lcMPoPRfa Qw2caVxbvXtmSQ4iJVKlzllnj4 17GuVsj7hvRVRloGAnGHtvCPE3 C66fo9S9NSJyJBZdJQV4qBV1 xG8weRwyrutgnSJsvKwtugFxvG hrDOguYKukT901PZYbxWibUoBj YFp6L8NoFkp0XWVgcNrkKW7e yYBpSUkfQl2neQvrqLpyQL7cZB Tmepiqe022NgEgl4szIFPurFBb TGxfCPF4X70zs2I0ZVNeJYTy PZJ0rQL3qK9jsSjgyfkltVDmjZ fnktNsbIlzBUwpIGsfX618BFYw uEsdVsAolRd7K1YdBkh5XGQk tRsiMZ5mrPMzZYlwFh7dsCjulR nmNK0nVNRfveqsi443BdWza0ew LNLayKXiUHguQJL0J91mf7T6 KOZuGNKpHMC3sHZ1cF7lhRyboe ogbGVmdDsgdmVydGljYWwtYWxp H944HTGliBmvVeRibEdqxuYk KFgmENj5O0RjXaaktHX+PC90YW ElJU52lHYxcYFwq6gciKg1JuDf JNYaQDQ3aRocSOnkr2CnYNDd J83riPIsq0S6HZJvjEoyqAPhZm CcvYR5sJ9zMCwhlmssg3fipfpy Tjqee1cjab02cM24A88dUTpu QTUiLXCbKLXaBAMlfIiyzd4lkM 9wIi8+YXDtjUW3gGF9wV8mCFPw EoG4BAesT541ZcHyiPWcPcgp e0kss7zkkKc7PgA5CNFdylUrpJ syWGA4q1NqQb39C09aOUucQLKk AMRlIQWwYCIuaMkjaq8cvC5v Ii8+IWFbiMM8qCL3xP9eEyZePq Q2YTvkC581MyBzsCWhPcyyT26w K6EduXB+JTEtOvd8IXAbaTtr BT4hnDIyGOunJw1nJSU7EjOkGx RbVMybJ4FfXYTnwamzhpyzkMZ3 PFYiFOYxgP31Ff7tpOpjICKd cZHIwE1pciiov0elfxrgDrRjSF UfVXv8PXb2JGEumMgrCjYrCRA1 StZ5NWI8kEFnuD6vbYtgvzla fW7uG2EtLRFounrgPz08oN0bKx WmTbU9CUcwPvo+D2FXMs2DRQSY CNBIIBTXC7JVOQyuiLL+PHRk BEO5cEqoVHjyOSSyrC4cOIRmL3 h0QbDmVkI1LRpgW2GjKKJobbvk Hy33nQ4hZfRaXmS3SScsJ7Mo cyQ4EGDjjOPxCAvhAWQ5O92xo4 P1RPJqHLUgKGB7oTJ0hM6saNxe bjogbGVmdDsgdmVydGljYWwt ECfrK673CKOwtHopZrH3TvF3Up E0LsK1O0LiCey5HJTfvErfIY2f lUPlLGkjQg5arFonwEutTV6r LMLlgvneXTPdxZ6mWWJjaOBzdO gmNY9sIBThcvpfd611KqMdLGQ4 NNPdmSLlD3CitY2gSkAsIDHe OILyP0GuyFXtUWdiI077MCgbWg Q0UPFtewRpF4WlGSMgdTeyZlV0 n4Y8Zt06LHNQHIHmljlyuVV+ TRYpBGK7iVcxUYboTLApyA0iCJ YdQ4n4GhSmAzH8MTetW6SvATOf iyphId30tB6sEyOiGqO5QFjg I3NbrjK1BNJnnSEtKTlzFRQ6B5 1ix2L7TSGrTKQaTKS8dIF9eX0m bGlnbjogbGVmdDsgdmVydGlj OHhjDOczZ686QWKnxGkdSu5CFE M8O0TmCtr3NKEwcTwwIN5snPFg FFwlCb2lwDinxDltNN5nWAHd nupdPQTjtQ1bBNOwtVLzhSnkGQ 7nXTLvgwtwj879GiAkLEJ3ECFx pMYcU2BogH9dMhKlCNYlPLPf N6KztWFvYJwlE487FKyaYuX1FX XnynBnY1WyQFMtlFyuDtW6n6G3 Mb8YWSixzTC+RH45wv86X9Wz AdxlGkh5SKJqRYQ2kEQ5aU9kQD ZgJNidp5A7kSQ2B3BnscJamo1c v4wuBGGzOGroL66vaYGwk5G9 IXVlwXS9HALbrSxuGwTmkG87St c+ZTWeyBuzd1GnLdmga4hjy7qx iZo0SiEqSYCefaEabArgUZF8 p7ScGt87T23sJTbvNGGoPNQoOG SzTPQxcBsjjc9fkA9wIg2+PGNv tUU4gZW5oO3hPpMaZpZ9UCwc D032PbDrbCFrFzsfi1btf6uqeO j0ZzTfWNTdrdZraZkxONI7r0Pi Kt68A3FffBnoc2BbJxu3db20 mAGsi9T8nMV8C8SoARIvbqmhyX WucZgrRH6zQURpjjmhBBZdbM7l AXEjY0n1RzFfFxM4JRygZ9Lb kvH8QHEfoALmZBUtpCZUkZ2nos wpr1dvmlevKhWvAHAiIMx2EBd9 WDDmoAcyFwHcFKW7DzV3DNN2 zCZgqS3btNmcdqxdrV6kGji+UG e7q4esxXXcQM6mjZF8TJ00UU33 gXZaz9M6gZY5W1OgGEWenkjn imirpWJ4WAZiPZZihX26Fy1ddN shPe7yKAVvRHE8SWOatJIpE6Nc zJ9kVpGkZCWhOPXgI4ZjrKFv RGheB001PXywIdM3AXDpmgXoA9 SmVNBetOllSpT9r6R7Te8CSJ11 BE66VO37yKOnx9Q7eZZ6Y8Bz TADwhaqbvwkijLQ8BHCeCABnlD 09Kw4ngJjwEe9dIGKvHXL3QFIr xYNoY2LmrX5cJdTkKEWhDVJw E9MpoZGeUTceN016IHjgSpI4KJ ChgcBmN6FcFLKiqXhwPoF2m5H9 Lz0DUq54DM34ER80nDPso4Z5 fNL0Z4ClCYYjmmougzwttZK4IK UkGKGxlD66Zj7lsMveOg6hAROx SUX3KLJgtPUbB8MobX5pTaBm JZKgMKEjQ5HooYCbSLlmW282NO nhYoU0UOTpfkRqK3LmCUIlzBxr MqW1g8X1Vn8ZSSkfbap1V0Cq PjwvdHI+PV99ZYNsDU22zUBuxC Xep1kbdNk2JoBpGMPaFKD0cHds LCiso0HjEBIqP19qcLQcf5C8 IGN (more content not included)... Normal [facility] ED Clinical Summaryon 2023 ED Clinical Summary [facility] ? [facility] [address] [place] [address] [id number] Clinical Summary PERSON INFORMATION Name: NEHAL BAIG Age: 52 Years Sex: MALE : 1970 MRN: Acct#: Visit Reason: Medical screening exam; [facility] F/U LOWER BACK Arrival: 06/11/2023 13:46:00 Discharge: 06/11/2023 15:35:00 LOS: 000 01:49 Check In: 06/11/2023 13:46:00 Checkout: 06/11/2023 15:35:00 Address: [address] [place] [address] PCP: Salome Aguillon PROVIDER INFORMATION Provider Role [...] understanding of instructions given Comment: Normal [facility] ED Patient Summaryon 024 ED Patient Summary [facility] ? Urgent Care [address] [place] [id number] PATIENT DISCHARGE INSTRUCTIONS Patient Information Name: NHEAL BAIG Age: 52 Years Date of : 1970 Reason For Visit: Medical screening exam; [facility] F/U LOWER BACK Arrival Time: 06/11/2023 13:46:00 Primary Care Physician: Salome Aguillon Attending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 Facility: [facility] Address: [address] [place] [address] Result Comment: <130 mg/dL, Optimal 130-159 mg/dL, Near optimal/above optimal 160-189 mg/dL, Borderline high 190-219 mg/dL, High >219 mg/dL, Very high Secondary prevention optimal non HDL Cholesterol levels are recommended to be <100 mg/dL Performed By: #### 2 4323-8, 29007-5 ####[facility] LABCLIA [id number] [place] [address] [place] Cholesterol.total/Ch olesterol in HDL [Mass ratio] 5.76 {ratio} High <5.10 [facility] Comment on above: Order Comment: Speci men Type: BLOOD SPECIMENOrdering Facility: [facility] Address: [address] [place] [address] Performed By: #### 2 4323-8, 99599-2 ####[facility] LABCLIA [id number] [address] [id number] [place] FASTING TIME 10 hrs Normal [facility] Comment on above: Order Comment: Speci men Type: BLOOD SPECIMENOrdering Facility: [facility] Address: [address] [place] [address] Performed By: #### 2 4323-8, 68929-5 ####[facility] LABCLIA [id number] [place] [address] [place] Triglyceride [Mass/Vol] 161 mg/dL High <150 [facility] Comment on above: Order Comment: Speci men Type: BLOOD SPECIMENOrdering Facility: [facility] Address: [address] [place] [address] Result Comment: <150 mg/dL, Normal 150-199 mg/dL, Borderline high 200-499 mg/dL, High >499 mg/dL, Very high Performed By: #### 2 4328, 04125-0 ####[facility] LABCLIA [id number] [place] [address] [place] PSA/PROSTSPECAG SCRNon 05-19 Prostate specific Ag [Mass/Vol] 0.56 ng/mL Normal <2.60 [facility] Comment on above: Order Comment: Speci men Type: BLOOD SPECIMENOrdering Facility: [facility] Address: [address] [place] [address] Result Comment: Tota l PSA test methodology used is the Electrochemiluminescence Immunoassay by [employer]. Total PSA values by differing methodologies cannot be interchanged. Performed By: #### P SAS1 ####[facility] LABCLIA [id number] [facility] [id number] [place] [address] [place] TSH SerPl-aCncon 05-19-2022 TSH Qn 1.020 m[IU]/L Normal 0.270-4.200 [facility] Comment on above: Order Comment: Speci men Type: BLOOD SPECIMENOrdering Facility: [facility] Address: [address] [address] Performed By: #### 3 016-3 ####[facility] LABCLIA [id number] ANTHONYDominik [facility] [id number] [place] [address] [place] URINALYSIS, REFLEX MICROSCOP ICon 05-19-2022 Bilirubin Ql (U) Negative Normal Negative [facility] Comment on above: Order Comment: Speci men Type: URINE SPECIMEN Ordering Facility: [facility] Address: [address] [place] [address] Performed By: #### L [id number] #### [facility] CLIA [id number] [address] [place] [address] [place] Clarity (Unsp spec) Clear Normal Clear [facility] Comment on above: Order Comment: Speci men Type: URINE SPECIMEN Ordering Facility: [facility] Address: [address] [place] [address] Performed By: #### L [id number] #### [facility] CLIA [id number] [address] [place] [address] [place] [facility] Color (U) Yellow Normal Yellow [facility] Comment on above: Order Comment: Speci men Type: URINE SPECIMEN Ordering Facility: [facility] Address: [address] [place] [address] Performed By: #### L [id number] #### [facility] LAB CLIA [id number] [address] [place] [address] [place] Epithelial cells LM.HPF (Urine sed) [#/Area] Few Normal [facility] Comment on above: Order Comment: Speci men Type: URINE SPECIMEN Ordering Facility: [facility] Address: [address] [place] [address] Performed By: #### L [id number] #### [facility] CLIA [id number] [address] [place] [address] [place] Glucose Test strip (U) [Mass/Vol] Negative Normal Negative [facility] Comment on above: Order Comment: Speci men Type: URINE SPECIMEN Ordering Facility: [facility] Address: [address] [place] [address] Performed By: #### L [id number] #### [facility] CLIA [id number] [address] [place] [address] [place] Hemoglobin Ql (U) Negative Normal Negative [facility] Comment on above: Order Comment: Speci men Type: URINE SPECIMEN Ordering [facility]: [facility] Address: [address] [place] [address] Performed By: #### L [id number] #### [facility] CLIA [id number] [address] [place] [address] [place] [facility] Ketones Ql (U) Trace Abnormal Negative [facility] Comment on above: Order Comment: Speci men Type: URINE SPECIMEN Ordering Facility: [facility] Address: [address] [place] [address] Performed By: #### L [id number] #### [facility] CLIA [id number] [address] [place] [address] [place] [facility] Leukocyte esterase Test strip Ql (U) Negative Normal Negative [facility] Comment on above: Order Comment: Speci men Type: URINE SPECIMEN Ordering [facility]: [facility] Address: [address] [place] [address] Performed By: #### L [id number] #### [facility] CLIA [id number] [address] [place] [address] [place] Nitrite Ql (U) Negative Normal Negative [facility] Comment on above: Order Comment: Speci men Type: URINE SPECIMEN Ordering Facility: [facility] Address: [address] [place] [address] Performed By: #### L [id number] #### [facility] CLIA [id number] [address] [place] [address] [place] pH (U) 5.5 [pH] Normal 5.0-8.0 [facility] Comment on above: Order Comment: Speci men Type: URINE SPECIMEN Ordering Facility: [facility] Address: [address] [place] [address] Performed By: #### L [id number] #### [facility] CLIA [id number] [address] [place] [address] Protein (U) [Mass/Vol] 1+ Abnormal Negative [facility] Comment on above: Order Comment: Speci men Type: URINE SPECIMEN Ordering [facility]: [facility] Address: [address] [place] [address] Performed By: #### L [id number] #### [facility] CLIA [id number] [address] [place] [address] [place] RBC LM.HPF (Urine sed) [#/Area] 0-3 /HPF Normal 0-3 /HPF [facility] Comment on above: Order Comment: Speci men Type: URINE SPECIMEN Ordering [facility]: [facility] Address: [address] [place] [address] Performed By: #### L [id number] #### [facility] CLIA [id number] [address] [place] [address] Specific gravity (U) [Rel density] >=1.030 High 1.005-1.030 [facility] Comment on above: Order Comment: Speci men Type: URINE SPECIMEN Ordering Facility: [facility] Address: [address] [place] [address] Performed By: #### L [id number] #### [facility] CLIA [id number] [address] [place] [address] Urobilinogen Ql (U) 0.2 EU/dL Normal 0.2-1.0 EU/dL [facility] Comment on above: Order Comment: Speci men Type: URINE SPECIMEN Ordering Facility: [facility] Address: [address] [place] [address] Performed By: #### L [id number] #### [facility] CLIA [id number] [address] [place], [place] [address] [facility] WBC LM.HPF (Urine sed) [#/Area] 0-5 /HPF Normal 0-5 /HPF [facility] Comment on above: Order Comment: Speci men Type: URINE SPECIMEN Ordering Facility: [facility] Address: [address] [place] [address] Performed By: #### L [id number] #### [facility] ON LICENSE [facility] CLIA [id number] [address] [place], [place] [address] [facility] MRI CSPINE WO CONon 04-23-19 MRI [...] by: KINGSLEY HERRERA Date: 2022-04-23 06:50 Normal [facility] XR FOREIGN BODY EYEon 2022 XR FOREIGN BODY EYE EXAMINATION: XR FORE IGN BODY EYE HISTORY: Foreign body in eye COMPARISON: No relevant comparison available. FINDINGS: ORBITS: Negative for a metallic foreign body. OTHER: Negative. IMPRESSION: 1. No metallic foreign body within the orbits. Electronically authenticated by: JAYY GIVENS Date: 2022-04-20 13:52 Normal [facility] CNOVon 02-15-2022 CNOV Office Visit ([facility] ) -- NEHAL BAIG ([id number]) 1970 M Date Time Provider Department 02/15/22 2:20 PM SALOME AGUILLON [facility] During your visit today, we recorded the following information about you: Pulse Blood pressure Weight 72/minute 147/82 177.8 kg Salome Aguillon APRN.MEDICINE AND HEALTH SERVICE MANAGER 02/15/2022 4:56 PM Signed Salome Aguillon APRN.MEDICINE AND HEALTH SERVICE MANAGER 02/15/2022 4:56 PM Signed This note was created using NoteWriter. Subjective Nehal Baig is a 51 year old male. CC: routine f/up Last seen: HPI ENDO/WT: -needs f/up endo wt managmeent Dr. 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 Man/Agustina-endo wt management team [phone] Has been off metformin 6 weeks + due to GI SE - even on XR Tried intermittent fasting and vegan RESP-lung nodules stable. Repeat ct and OV 1 year (09/22/22) -JACOYB on cpap -stopped steroid inhaler-no good response [...] This is a workers comp issue-through [facility]/Dr. Cowan. 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 Shoulder replacement surgery left 08/23/24. 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 HM: -declines flu vaccine -declines covid [...] looks fine. Vitamin D is low-please begin qlpi-faz-kokbwht vitamin D3 2000 units daily. Urine asymptomatic. Component Latest Ref Rng AND Units 02/10/2022 Color Yellow Yellow Clarity Clear Clear Glucose, Urine Negative Negative Bilirubin, Urine Negative Negative Ketones, Urine Negative Negative Specific [place], Ur 1.005 - 1.030 1.037 (H) Hemoglobin/Blood,Ur [...] other (Epilepsy) (more content not included)... Normal [facility] 25(OH)D3 SerPl-mCncon 2021 25-hydroxyvitamin D3 [Mass/Vol] 28.2 ng/mL Low 31.0-80.0 [facility] Comment on above: Order Comment: Speci men Type: BLOOD SPECIMENOrdering Facility: [facility] Address: [address] [place] [address] Result Comment: Clas sification of 25 [place] Vitamin D status: Deficiency/Insufficiency: < or = 30 ng/ml. Sufficiency/Optimal Levels: 31-80 ng/mL Toxicity: > 100 ng/mL. Test performed by chemiluminescent immunoassay. Performed By: #### 1 989-3 ####[facility] LABIA [id number] [place] [address] [place] CBC panel Auto (Bld)on 02-10 Erythrocyte distribution width (RBC) [Ratio] 13.2 % Normal 11.5-15.0 [facility] Comment on above: Order Comment: Speci men Type: BLOOD SPECIMENOrdering Facility: [facility] Address: [address] [place] [address] Performed By: #### 5 8410-2 ####[facility] LABIA [id number] [place] [address] [place] Hematocrit (Bld) [Volume fraction] 41.9 % Normal 39.0-51.0 [facility] Comment on above: Order Comment: Speci men Type: BLOOD SPECIMENOrdering Facility: [facility] Address: [address] [place], [place] [address] Performed By: #### 5 8410-2 ####[facility] LABIA [id number] [place] [address] [place] Hemoglobin (Bld) [Mass/Vol] 13.9 g/dL Normal 13.0-17.0 [facility] Comment on above: Order Comment: Speci men Type: BLOOD SPECIMENOrdering Facility: [facility] Address: [address] [place], [place] [address] Performed By: #### 5 8410-2 ####[facility] [id number] [address] [facility] MCH (RBC) [Entitic mass] 29.0 pg Normal 26.0-34.0 [facility] Comment on above: Order Comment: Speci men Type: BLOOD SPECIMENOrdering Facility: [facility] Address: [address] [place] [address] Performed By: #### 5 8410-2 ####[facility] [id number] [address] [place] MCHC (RBC) [Mass/Vol] 33.2 g/dL Normal 30.5-36.0 [facility] Comment on above: Order Comment: Speci men Type: BLOOD SPECIMENOrdering Facility: [facility] Address: [address] [place] [address] Performed By: #### 5 8410-2 ####[facility] [id number] [address] [place] MCV (RBC) [Entitic vol] 87.5 fL Normal 80.0-100.0 [facility] Comment on above: Order Comment: Speci men Type: BLOOD SPECIMENOrdering Facility: [facility] Address: [address] [place] [address] Performed By: #### 5 8410-2 ####[facility] [id number] [address] [place] Nucleated RBC (Bld) [#/Vol] 10*3/uL Normal <0.01 [facility] Comment on above: Order Comment: Speci men Type: BLOOD SPECIMENOrdering Facility: [facility] Address: [address] [place] [address] Performed By: #### 5 8410-2 ####[facility] [id number] [address] [place] Platelet mean volume (Bld) [Entitic vol] 10.6 fL Normal 9.0-12.7 [facility] Comment on above: Order Comment: Speci men Type: BLOOD SPECIMENOrdering Facility: [facility] Address: [address] [place], [place] [address] Performed By: #### 5 8410-2 ####[facility] LABCLIA [id number] [place] [address] [place] Platelets (Bld) [#/Vol] 198 10*3/uL Normal 150-400 [facility] Comment on above: Order Comment: Speci men Type: BLOOD SPECIMENOrdering Facility: [facility] Address: [address] [place], [place] [address] Performed By: #### 5 8410-2 ####[facility] LABCLIA [id number] [address] [place] OF [facility] RBC (Bld) [#/Vol] 4.79 10*6/uL Normal 4.20-6.00 [facility] Comment on above: Order Comment: Speci men Type: BLOOD SPECIMENOrdering Facility: [facility] Address: [address] [place], [place] [address] Performed By: #### 5 8410-2 ####[facility] LABIA [id number] [place] [address] [place] WBC (Bld) [#/Vol] 6.46 10*3/uL Normal 3.70-11.00 [facility] Comment on above: Order Comment: Speci men Type: BLOOD SPECIMENOrdering Facility: [facility] Address: [address] [place], [place] [address] Performed By: #### 5 8410-2 ####[facility] LABCLIA [id number] [place] [address] [place] Comprehensive metabolic 2000 panelon 02-10-2022 Albumin [Mass/Vol] 4.5 g/dL Normal 3.9-4.9 [facility] Comment on above: Order Comment: Speci men Type: BLOOD SPECIMENOrdering Facility: [facility] Address: [address] [facility] [place] [address] Performed By: #### 3 016-3, ####[facility] LABCLIA [id number] [place] [address] [place]#### 85566-5 ####[facility] LABCLIA [id number] [facility] [place] [id number] [place] OF [facility] LABORATORYCLIA [id number] [place] [address] [place] ALP [Catalytic activity/Vol] 85 U/L Normal 38-113 [facility] Comment on above: Order Comment: Speci men Type: BLOOD SPECIMENOrdering Facility: [facility] Address: [address] [place] [address] Performed By: #### 3 016-3, ####[facility] LABCLIA [id number] [facility] [place] [address] [place]#### 08908-0 ####[facility] LABCLIA [id number] [facility] [address] STATES OF [facility] LABORATORYCLIA [id number] [place] [address] [place] ALT [Catalytic activity/Vol] 34 U/L Normal 10-54 [facility] Comment on above: Order Comment: Speci men Type: BLOOD SPECIMENOrdering Facility: [facility] Address: [address] [place] [address] Performed By: #### 3 016-3, ####[facility] LABCLIA [id number] [facility] [place] [id number] [place]#### 61611-3 ####[facility] LABCLIA [id number] [place] [address] [place] [facility] LABORATORYCLIA [id number] [place] [address] [place] Anion gap [Moles/Vol] 10 mmol/L Normal 9-18 [facility] Comment on above: Order Comment: Speci men Type: BLOOD SPECIMENOrdering Facility: [facility] Address: [address] [place] [address] Performed By: #### 3 016-3, 74413-2 ####[facility] LABCLIA [id number] [place] [address] [place]#### 59594-9 ####[facility] LABCLIA [id number] [address] STATES OF [facility] LABORATORYCLIA [id number] [place] [address] [place] AST [Catalytic activity/Vol] 25 U/L Normal 14-40 [facility] Comment on above: Order Comment: Speci men Type: BLOOD SPECIMENOrdering Facility: [facility] Address: [address] [place], [place] [address] Performed By: #### 3 016-3, 91435-1 ####[facility] LABCLIA [id number] [place] [address] [place]#### 81509-6 ####[facility] LABCLIA [id number] [place] [address] [place] [facility] LABORATORYCLIA [id number] [place] [address] [place] Bilirubin [Mass/Vol] 0.4 mg/dL Normal 0.2-1.3 [facility] Comment on above: Order Comment: Speci men Type: BLOOD SPECIMENOrdering Facility: [facility] Address: [address] Performed By: #### 3 016-3, ####[facility] LABCLIA [id number] [place] [address] [place]#### 08060-2 ####[facility] LABCLIA [id number] [address] [address] [place] [facility] LABORATORYCLIA [id number] [place] [address] [place] Calcium [Mass/Vol] 9.3 mg/dL Normal 8.5-10.2 [facility] Comment on above: Order Comment: Speci men Type: BLOOD SPECIMENOrdering Facility: [facility] Address: [address] [place] [address] Performed By: #### 3 016-3, ####[facility] LABCLIA [id number] [place] [address] [place]#### 47331-0 ####[facility] LABCLIA [id number] [place] [address] [place] [facility] LABORATORYCLIA [id number] [place] [address] [place] Chloride [Moles/Vol] 103 mmol/L Normal 97-105 [facility] Comment on above: Order Comment: Speci men Type: BLOOD SPECIMENOrdering Facility: [facility] Address: [address] [place] [address] Performed By: #### 3 016-3, ####[facility] LABCLIA [id number] [place] [address] [place]#### 62780-9 ####[facility] LABCLIA [id number] [address] [address] [place] [facility] LABORATORYCLIA [id number] [place] [address] [place] CO2 [Moles/Vol] 26 mmol/L Normal 22-30 [facility] Comment on above: Order Comment: Speci men Type: BLOOD SPECIMENOrdering Facility: [facility] Address: [address] [place] [address] Performed By: #### 3 016-3, 77872-5 ####[facility] LABCLIA [id number] [address] [place]#### 89490-3 ####[facility] LABCLIA [id number] [address] [facility] LABORATORYCLIA [id number] [address] STATES OF [facility] Creatinine [Mass/Vol] 0.90 mg/dL Normal 0.73-1.22 [facility] Comment on above: Order Comment: Speci men Type: BLOOD SPECIMENOrdering Facility: [facility] Address: [address] [place] [address] Performed By: #### 3 016-3, 80230-4 ####[facility] LABCLIA [id number] [address]#### 07317-4 ####[facility] LABCLIA [id number] [address] LABORATORYCLIA [id number] [address] ESTIMATED GLOMERULAR FILTRATION RATE 105 mL/min/1.73m??? Normal >=60 [facility] Comment on above: Order Comment: Speci men Type: BLOOD SPECIMENOrdering Facility: [facility] Address: [address] [place] [address] Result Comment: Halle mated Glomerular Filtration Rate [...] actual GFR. Performed By: #### 3 016-3, 30632-7 ####[facility] LABCLIA [id number] [address] [place]#### 03628-7 ####[facility] LABCLIA [id number] [address] LABORATORYCLIA [id number] [place] [address] [place] Glucose [Mass/Vol] 115 mg/dL High 74-99 [facility] Comment on above: Order Comment: Speci men Type: BLOOD SPECIMENOrdering Facility: [facility] Address: [address] [place] [address] Result Comment: The [place] Diabetes Association (ADA) provides guidance for cutoff [...] Standards of Medical Care in Diabetes 2016, [place] [employer] Association. Diabetes Care. 2016.39(Suppl 1). Performed By: #### 3 016-3, 77427-2 ####[facility] LABCLIA [id number] [address] [address] [place]#### 95095-8 ####[facility] LABIA [id number] [address] [address] [facility] LABORATORYCLIA [id number] [place] [address] [place] Potassium [Moles/Vol] 4.2 mmol/L Normal 3.7-5.1 [facility] Comment on above: Order Comment: Speci men Type: BLOOD SPECIMENOrdering Facility: [facility] Address: [address] [place] [address] Performed By: #### 3 016-3, ####[facility] LABCLIA [id number] [facility] [place] [address] [place]#### 61325-3 ####[facility] LABCLIA [id number] [facility] [address] [place] LABORATORYCLIA [id number] [place] [address] [place] Protein [Mass/Vol] 6.9 g/dL Normal 6.3-8.0 [facility] Comment on above: Order Comment: Speci men Type: BLOOD SPECIMENOrdering Facility: [facility] Address: [address] [place] [address] Performed By: #### 3 016-3, ####[facility] LABCLIA [id number] [place] [address] [place]#### 44103-5 ####[facility] LABCLIA [id number] [facility] [address] STATES OF [facility] LABORATORYCLIA [id number] [place] [address] [place] Sodium [Moles/Vol] 139 mmol/L Normal 136-144 [facility] Comment on above: Order Comment: Speci men Type: BLOOD SPECIMENOrdering Facility: [facility] Address: [address] [place] [address] Performed By: #### 3 016-3, ####[facility] LABCLIA [id number] [place] [address] [place]#### 08442-0 ####[facility] LABCLIA [id number] [address] LABORATORYCLIA [id number] [address] [place] [facility] Urea nitrogen [Mass/Vol] 15 mg/dL Normal 9-24 [facility] Comment on above: Order Comment: Speci men Type: BLOOD SPECIMENOrdering Facility: [facility] Address: [address] [place] [address] Performed By: #### 3 016-3, 38617-0 ####[facility] LABCLIA [id number] [address] OF [place]#### 03429-2 ####[facility] LABCLIA [id number] [address] STATES [facility] LABORATORYCLIA [id number] [address] [place] HbA1c (Bld)on 02-10-2022 Average glucose Estimated from glycated hemoglobin (Bld) [Mass/Vol] 105 mg/dL Normal [facility] Comment on above: Order Comment: Tessa flores Type: BLOOD SPECIMENOrdering Facility: [facility] Address: [address] [place] [address] Result Comment: eAG: (Estimated average glucose) is a calculated value from HgbA1c and is admitting representative of the average blood glucose level in the last 2-3 month period. Performed By: #### 5 5454-3 ####[facility] LABCLIA [id number] [address] [place] HbA1c (Bld) [Mass fraction] 5.3 % Normal 4.3-5.6 [facility] Comment on above: Order Comment: Tessa flores Type: BLOOD SPECIMENOrdering Facility: [facility] Address: [address] [place] [address] Result Comment: [place] Diabetes Association guidelines indicate that patients with HgbA1c in the range 5.7-6.4% are at increased risk for development of diabetes, and intervention by lifestyle modification may be beneficial. HgbA1c greater or equal to 6.5% is considered diagnostic of diabetes. Performed By: #### 5 5454-3 ####[facility] LABCLIA [id number] [address] Lipid 1996 panelon 2 Cholesterol [Mass/Vol] 179 mg/dL Normal <200 [facility] Comment on above: Order Comment: Speci men Type: BLOOD SPECIMENOrdering Facility: [facility] Address: [address] [place] [address] Result Comment: <200 mg/dL, Desirable 200-239 mg/dL, Borderline high >239 mg/dL, High Performed By: #### 3 016-3, 75653-3 ####[facility] LABCLIA [id number] [address] [place]#### 80554-0 ####[facility] LABCLIA [id number] [address] LABORATORYCLIA [id number] [address] STATES OF [facility] Cholesterol in HDL [Mass/Vol] 36 mg/dL Low >39 [facility] Comment on above: Order Comment: Speci men Type: BLOOD SPECIMENOrdering Facility: [facility] Address: [address] [place] [address] Result Comment: 40-5 9 mg/dL, Acceptable >59 mg/dL, High: Negative risk factor for coronary heart disease <40 mg/dL, Low: Positive risk factor for coronary heart disease Performed By: #### 3 016-3, 45807-5 ####[facility] LABCLIA [id number] [address] [place]#### 58340-8 ####[facility] LABCLIA [id number] [place] [id number], [place] [address] [place] [address] LABORATORYCLIA [id number] [place] [address] [place] Cholesterol in LDL [Mass/Vol] 104 mg/dL High <100 [facility] Comment on above: Order Comment: Speci men Type: BLOOD SPECIMENOrdering Facility: [facility] Address: [address] [place] [address] Result Comment: <100 mg/dL, Optimal 100-129 mg/dL, Near optimal/above optimal 130-159 mg/dL, Borderline high 160-189 mg/dL, High >189 mg/dL, Very high Secondary prevention optimal LDL Cholesterol levels are recommended to be < 70 mg/dL Performed By: #### 3 016-3, 96469-6 ####[facility] LABCLIA [id number] [address] [facility]#### 90[address]-8 ####[facility] LABCLIA [id number] [address] LABORATORYCLIA [id number] [place] [address] [place] Cholesterol in LDL/Cholesterol in HDL [Mass ratio] 2.89 {ratio} High <2.54 [facility] Comment on above: Order Comment: Speci men Type: BLOOD SPECIMENOrdering Facility: [facility] Address: [address] [place] [address] Result Comment: Doris tucker: 1. National Cholesterol Education Program ATP III Guideline At-A-Glance Quick Desk Reference: National Heart, Lung, and Blood [place]. National Institutes of Health. 2001: NIH Publication No. 01-3305. 2. An International Atherosclerosis Society position paper: global recommendations for the management of dyslipidemia: executive summary, Atherosclerosis. 2014: 232(2):410-413. Performed By: #### 3 016-3, 62647-2 ####[facility] LABCLIA [id number] [address] [place]#### 15584-0 ####[facility] LABCLIA [id number] [address] LABORATORYCLIA [id number] [address] [place] Cholesterol in VLDL [Mass/Vol] 39 mg/dL High <30 [facility] Comment on above: Order Comment: Speci men Type: BLOOD SPECIMENOrdering Facility: [facility] Address: [address] [place] [address] Performed By: #### 3 016-3, 29718-4 ####[facility] LABCLIA [id number] [place] [address] [place]#### 21998-9 ####[facility] LABCLIA [id number] [address] STATES OF [facility] LABORATORYCLIA [id number] [place] [address] [place] Cholesterol non HDL [Mass/Vol] 143 mg/dL High <130 [facility] Comment on above: Order Comment: Speci men Type: BLOOD SPECIMENOrdering Facility: [facility] Address: [address] [place] [address] Result Comment: <130 mg/dL, Optimal 130-159 mg/dL, Near optimal/above optimal 160-189 mg/dL, Borderline high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 L KIERRAB, 21202-3 ####[facility] ON LICENSE OF [facility]CLIA [id number] [place] [address] [place] AST [Catalytic activity/Vol] 39 U/L Normal 14-40 [facility] Comment on above: Order Comment: Speci men Type: BLOOD SPECIMENOrdering Facility: [facility] Address: [address] [place] [address] Performed By: #### L KIERRAB, 25472-9 ####[facility] ON LICENSE OF [facility]CLIA [id number] [place] [address] [place] Bilirubin [Mass/Vol] 0.4 mg/dL Normal 0.2-1.3 [facility] Comment on above: Order Comment: Speci men Type: BLOOD SPECIMENOrdering Facility: [facility] Address: [address] [place] [address] Performed By: #### L IPB, 23869-4 ####[facility] ON LICENSE OF [facility]CLIA [id number] [place] [address] [place] Calcium [Mass/Vol] 9.8 mg/dL Normal 8.5-10.2 [facility] Comment on above: Order Comment: Speci men Type: BLOOD SPECIMENOrdering Facility: [facility] Address: [address] Performed By: #### L IPB, 60780-3 ####[facility] ON LICENSE OF [facility]IA [id number] [place] [address] [place] Chloride [Moles/Vol] 104 mmol/L Normal 97-105 [facility] Comment on above: Order Comment: Speci men Type: BLOOD SPECIMENOrdering Facility: [facility] Address: [address] [place] [address] Performed By: #### L IPB, 31309-8 ####[facility] ON LICENSE OF [facility] [id number] [place] [address] [place] CO2 [Moles/Vol] 28 mmol/L Normal 22-30 [facility] Comment on above: Order Comment: Speci men Type: BLOOD SPECIMENOrdering Facility: [facility] Address: [address] [place] [address] Performed By: #### L IPB, 66379-0 ####[facility] ON [facility]CLIA [id number] [place] [address] [place] Creatinine [Mass/Vol] 0.98 mg/dL Normal 0.73-1.22 [facility] Comment on above: Order Comment: Speci men Type: BLOOD SPECIMENOrdering Facility: [facility] Address: [address] [place], [place] [address] Performed By: #### L IPB, 25678-2 ####[facility] ON LICENSE OF [facility] [id number] [place] [address] [place] ESTIMATED GLOMERULAR FILTRATION RATE 95 mL/min/1.73m??? Normal >=60 [facility] Comment on above: Order Comment: Speci men Type: BLOOD SPECIMENOrdering Facility: [facility] Address: [address] [place] [address] Result Comment: Halle mated Glomerular Filtration Rate [...] actual GFR. Performed By: #### L FILIPE, 58183-7 ####[facility]UN[facility]ITAL[facility] ON [facility]CLIA [id number] [place] [address] [place] Glucose [Mass/Vol] 120 mg/dL High 74-99 [facility] Comment on above: Order Comment: Tessa flores Type: BLOOD SPECIMENOrdering Facility: [facility] Address: [address] [place] [address] Result Comment: The [place] [employer] (ADA) provides guidance for cutoff [...] Standards of Medical Care in Diabetes 2016, [place] [employer]. Diabetes Care. 2016.39(Suppl 1). Performed By: #### L FILIPE, 94353-7 ####[facility] LABIA [id number] [place] [id number] [place] Potassium [Moles/Vol] 4.7 mmol/L Normal 3.7-5.1 [facility] Comment on above: Order Comment: Tessa flores Type: BLOOD SPECIMENOrdering Facility: [facility] Address: [address] [address] Performed By: #### L FILIPE, 76289-7 ####[facility] LABCLIA [id number] [place] [address] [place] Protein [Mass/Vol] 7.6 g/dL Normal 6.3-8.0 [facility] Comment on above: Order Comment: Speci men Type: BLOOD SPECIMENOrdering Facility: [facility] Address: [address] [place] [address] Performed By: #### L IPB, 02145-7 ####[facility] ON LICENSE OF [facility] LABCLIA [id number] [place] [id number] [place] Sodium [Moles/Vol] 139 mmol/L Normal 136-144 [facility] Comment on above: Order Comment: Speci men Type: BLOOD SPECIMENOrdering Facility: [facility] Address: [address] [place] [address] Performed By: #### L IPB, 20401-6 ####[facility] ON LICENSE OF [facility] LABCLIA [id number] [place] [address] [place] Urea nitrogen [Mass/Vol] 18 mg/dL Normal 9-24 [facility] Comment on above: Order Comment: Speci men Type: BLOOD SPECIMENOrdering Facility: [facility] Address: [address] [place] [address] Performed By: #### L IPB, 88551-7 ####[facility] ON LICENSE OF [facility] LABIA [id number] [place] [address] [place] HGB A1Con 07-29-2021 Average glucose Estimated from glycated hemoglobin (Bld) [Mass/Vol] 117 mg/dL Normal [facility] Comment on above: Order Comment: Speci men Type: BLOOD SPECIMENOrdering Facility: [facility] Address: [address] [place] [address] Result Comment: eAG: (Estimated average glucose) is a calculated value from HgbA1c and is admitting representative of the average blood glucose level in the last 2-3 month period. Performed By: #### H BA1C ####[facility] LABCLIA [id number] [place] [address] [place] HbA1c (Bld) [Mass fraction] 5.7 % High 4.3-5.6 [facility] Comment on above: Order Comment: Speci men Type: BLOOD SPECIMENOrdering Facility: [facility] Address: [address] [place] [address] Result Comment: Amer ican Diabetes Association guidelines indicate that patients with HgbA1c in the range 5.7-6.4% are at increased risk for development of diabetes, and intervention by lifestyle modification may be beneficial. HgbA1c greater or equal to 6.5% is considered diagnostic of diabetes. Performed By: #### H BA1C ####AMHKHRIST ON LICENSE OF [facility] LABCLIA [id number] [address] OF [facility] LIPID PANEL BASICon 07-30-19 22 Cholesterol [Mass/Vol] 240 mg/dL High <200 [facility] Comment on above: Order Comment: Tessa men Type: BLOOD SPECIMENOrdering Facility: [facility] Address: [address] [place] [address] Result Comment: <200 mg/dL, Desirable 200-239 mg/dL, Borderline high >239 mg/dL, High Performed By: #### L IPB, 44591-5 ####JADYNERST ON LICENSE OF [facility] LABCLIA [id number] [address] OF [facility] Cholesterol in HDL [Mass/Vol] 37 mg/dL Low >39 [facility] Comment on above: Order Comment: Tessa sandra Type: BLOOD SPECIMENOrdering Facility: [facility] Address: [address] [place] [address] Result Comment: 40-5 9 mg/dL, Acceptable >59 mg/dL, High: Negative risk factor for coronary heart disease <40 mg/dL, Low: Positive risk factor for coronary heart disease Performed By: #### L IPB, 27721-9 ####AMHERST ON LICENSE OF [facility] LABCLIA [id number] [address] OF [facility] Cholesterol in LDL [Mass/Vol] 175 mg/dL High <100 [facility] Comment on above: Order Comment: Selmai sandra Type: BLOOD SPECIMENOrdering Facility: [facility] Address: [address] [place] [address] Result Comment: <100 mg/dL, Optimal 100-129 mg/dL, Near optimal/above optimal 130-159 mg/dL, Borderline high 160-189 mg/dL, High >189 mg/dL, Very high Secondary prevention optimal LDL Cholesterol levels are recommended to be < 70 mg/dL Performed By: #### L IPB, 03818-5 ####[facility] [facility] LABCLIA [id number] [address] [address] [facility] Cholesterol in LDL/Cholesterol in HDL [Mass ratio] 4.73 {ratio} High <2.54 [facility] Comment on above: Order Comment: Tessa flores Type: BLOOD SPECIMENOrdering Facility: [facility] Address: [address] [place] [address] Result Comment: Refe rence: 1. National Cholesterol Education Program ATP III Guideline At-A-Glance Quick Desk Reference: National Heart, Lung, and Blood [place]. National Institutes of Health. 2001: NIH Publication No. 01-3305. 2. An International Atherosclerosis Society position paper: global recommendations for the management of dyslipidemia: executive summary, Atherosclerosis. 2014: 232(2):410-413. Performed By: #### L KIERRAB, 30657-2 ####[facility] LABCLIA [id number] [address] [facility] Cholesterol in VLDL [Mass/Vol] 28 mg/dL Normal <30 [facility] Comment on above: Order Comment: Tessa flores Type: BLOOD SPECIMENOrdering Facility: [facility] Address: [address] [place] [address] Performed By: #### L IPB, 93215-0 ####[facility] LABCLIA [id number] [address] [id number] [place] Cholesterol non HDL [Mass/Vol] 203 mg/dL High <130 [facility] Comment on above: Order Comment: Tessa flores Type: BLOOD SPECIMENOrdering Facility: [facility] Address: [address] [address] Result Comment: <130 mg/dL, Optimal 130-159 mg/dL, Near optimal/above optimal 160-189 mg/dL, Borderline high 190-219 mg/dL, High >219 mg/dL, Very high Secondary prevention optimal non HDL Cholesterol levels are recommended to be <100 mg/dL Performed By: #### Natalie DENT, 53725-5 ####[facility] [facility] LABCLIA [id number] [address] Cholesterol.total/Ch olesterol in HDL [Mass ratio] 6.49 {ratio} High <5.10 [facility] Comment on above: Order Comment: Speci men Type: BLOOD SPECIMENOrdering Facility: [facility] Address: [address] [place] [address] Performed By: #### Natalie DENT, 19085-0 ####[place] [facility] LICENSE [facility] LABCLIA [id number] [address] FASTING TIME 12. hrs Normal [facility] Comment on above: Order Comment: Speci men Type: BLOOD SPECIMENOrdering Facility: [facility] Address: [address] [place] [address] Performed By: #### Natalie DENT, 43361-0 ####[facility] LICENSE [facility] LABIA [id number] [address] Triglyceride [Mass/Vol] 140 mg/dL Normal <150 [facility] Comment on above: Order Comment: Speci men Type: BLOOD SPECIMENOrdering Facility: [facility] Address: [address] [place] [address] Result Comment: <150 mg/dL, Normal 150-199 mg/dL, Borderline high 200-499 mg/dL, High >499 mg/dL, Very high Performed By: #### Natalie DENT, 35679-6 ####[facility] [facility] LABCLIA [id number] [address] [place] PSA/PROSTSPECAG SCRNon 07-29 Prostate specific Ag [Mass/Vol] 0.41 ng/mL Normal <2.60 [facility] Comment on above: Order Comment: Speci men Type: BLOOD SPECIMENOrdering Facility: [facility] Address: [address] [place], [place] [address] Result Comment: Tota l PSA test methodology used is the Electrochemiluminescence Immunoassay by [employer]. Total PSA values by differing methodologies cannot be interchanged. Performed By: #### P SAS1 ####[facility] LABCLIA [id number] [place] [address] [place] TSH SerPl-aCncon 07-29-2021 TSH Qn 4.060 m[IU]/L Normal 0.270-4.200 [facility] Comment on above: Order Comment: Speci men Type: BLOOD SPECIMENOrdering Facility: [facility] Address: [address] [place] [address] Performed By: #### 3 016-3 ####[facility] LABCLIA [id number] [place] [address] [place] URINALYSIS, REFLEX MICROSCOP ICon 07-29-2021 Bilirubin Ql (U) Negative Normal Negative [facility] Comment on above: Order Comment: Speci men Type: URINE SPECIMEN Ordering Facility: [facility] Address: [address] [place] [address] Performed By: #### L [id number] #### [facility] LAB CLIA [id number] [address] [place] [address] [place] Clarity (Unsp spec) Clear Normal Clear [facility] Comment on above: Order Comment: Speci men Type: URINE SPECIMEN [facility] Address: [address] [place], [place] [address] Performed By: #### L [id number] #### [facility] LAB CLIA [id number] [address] [place] [address] [place] Color (U) Yellow Normal Yellow [facility] Comment on above: Order Comment: Speci men Type: URINE SPECIMEN Ordering [facility]: [facility] Address: [address] [place], [place] [address] Performed By: #### L [id number] #### [facility] LAB CLIA [id number] [address] [place] [id number] [place] [address] [place] Glucose Test strip (U) [Mass/Vol] Negative Normal Negative [facility] Comment on above: Order Comment: Speci men Type: URINE SPECIMEN Ordering [facility]: [facility] Address: [address] [place] [address] Performed By: #### L [id number] #### [facility] LAB CLIA [id number] [address] [place] [id number] [place] [address] [place] Hemoglobin Ql (U) Negative Normal Negative [facility] Comment on above: Order Comment: Speci men Type: URINE SPECIMEN [facility]ing [facility] Address: [address] [place] [address] Performed By: #### L [id number] #### [facility] LAB CLIA [id number] [address] [place] [address] [place] [facility] Ketones Ql (U) Negative Normal Negative [facility] Comment on above: Order Comment: Speci men Type: URINE SPECIMEN [facility]ing [facility]: [facility] Address: [address] [place] [address] Performed By: #### L [id number] #### [facility] LAB CLIA [id number] [address] [place] [address] Leukocyte esterase Test strip Ql (U) Negative Normal Negative [facility] Comment on above: Order Comment: Speci men Type: URINE SPECIMEN [facility]: [facility] Address: [address] [place] [address] Performed By: #### L [id number] #### [facility] LAB CLIA [id number] [address] [place] [address] [place] Nitrite Ql (U) Negative Normal Negative [facility] Comment on above: Order Comment: Speci men Type: URINE SPECIMEN [facility]ing [facility]: [facility] Address: [address] [place] [address] Performed By: #### L [id number] #### [facility] LAB CLIA [id number] [address] [place] [address] [place] pH (U) 5.5 [pH] Normal 5.0-8.0 [facility] Comment on above: Order Comment: Speci men Type: URINE SPECIMEN [facility]ing [facility]: [facility] Address: [address] [place] [address] Performed By: #### L [id number] #### [facility] LAB CLIA [id number] [address] [place] [address] [place] Protein (U) [Mass/Vol] Negative Normal Negative [facility] Comment on above: Order Comment: Speci men Type: URINE SPECIMEN [facility] Address: [address] [place] [address] Performed By: #### L [id number] #### [facility] CLIA [id number] [address] [place] [address] Specific gravity (U) [Rel density] 1.025 Normal 1.005-1.030 [facility] Comment on above: Order Comment: Speci men Type: URINE SPECIMEN [facility]: [facility] Address: [address] [place] [address] Performed By: #### L [id number] #### [facility] CLIA [id number] [address] [place] [address] [place] Urobilinogen Ql (U) 0.2 EU/dL Normal 0.2-1.0 EU/dL [facility] Comment on above: Order Comment: Speci men Type: URINE SPECIMEN [facility] Address: [address] [place] [address] Performed By: #### L [id number] #### [facility] CLIA [id number] [address] [place], [place] [address] [place] VITAMIN D 25 HYDROXYon 07-29 25-hydroxyvitamin D3 [Mass/Vol] 29.1 ng/mL Low 31.0-80.0 [facility] Comment on above: Order Comment: Speci men Type: BLOOD SPECIMENOrdering Facility: [facility] Address: [address] [place] [id number] Result Comment: Clas sification of 25 [place] Vitamin D status: Deficiency/Insufficiency: < or = 30 ng/ml. Sufficiency/Optimal Levels: 31-80 ng/mL Toxicity: > 100 ng/mL. Test performed by chemiluminescent immunoassay. Performed By: #### V ITD ####[facility] LABCLIA [id number] [facility] [place] [id number] [address] [place] HISTORY PHYSICALon HISTORY PHYSICAL HNO ID: [id number] Author: Prisca Van PA-C Service: ? Author Type: Physician Segmental Paver Installer Type: HANDP Filed: 07/26/2021 1:52 PM Note Text: [facility] This is a virtual visit. It required patient-provider interaction for the medical decision making as documented below. Patient has been identified by name and date of : Yes Reason for call: PACC visit Accompanied by: Self Patient name: Nehal Baig Scheduled Surgery: colonoscopy 07/31/2021 at [place] CHIEF COMPLAINT: Patient presents with: Outpatient Colonoscopy [...] fevers. Neuro: No history of TIA's, stroke, TELETYPESETTER OPERATOR tumor, impaired sensorium, hemiplegia, paraplegia or quadraplegia. No neurological symptoms or problems. Respiratory: No history of current cough or dyspnea, or pneumonia in the past 6 weeks. +asthma-uses Flovent daily, albuterol 3-5 times/week +JACOBY- BiPAP nightly +lung nodules Cardiovascular: No history of angina, CHF, OR, cardiac surgery or stents. Denies rest pain, [...] carotid puls (more content not included)... Normal [facility] CNOVon 07-25-2021 CNOV Office Visit ([facility] ) -- NEHAL BAIG ([id number]) 1970 M Date Time Provider Department 07/25/21 9:20 AM SALOME AGUILLON [facility] During your visit today, we recorded the [...] or Coly (more content not included)... Normal [facility] CNPNon 07-25-2021 LEODANN Telephone ([facility]) -- NEHAL BAIG ([id number]) 1970 M Date Time Provider [facility], we recorded the following information about you: Beatriz Cowan 07/25/2021 11:22 AM [facility] states the Golytely is on backorder. They have the Newlytely in stock. Is it OK to substitute? Please advise. [phone]. Beatriz Cowan July 25, 2021 11:22 AM [...] Date Reviewed: 07/25/2021 Reviewed by: Salome Aguillon APRN.MEDICINE AND HEALTH SERVICE MANAGER - Fully Assessed Reason for Visit: Medication [...] Status:Closed by SALOME AGUILLON on 07/25/21 Normal [facility] CT CHEST WO IVCONon 15-20 21 Radiology Result ACTIONABLE Abnormal [facility] Basic Metab w/rfx MGon 08-02 (cont.) Normal [facility] Comment on above: Result Comment: Aver age GFR for 40-49 years old: 99 mL/min/1.73sq m Chronic Kidney Disease: <60 mL/min/1.73sq m Kidney failure: <15 mL/min/1.73sq m eGFR calculated using average adult body mass. Additional eGFR calculator available at: http://www.[employer]/multiple_crcl_2011.htm Performed By: #### C BC, BMPX ####[address] [address] Lab Director: Nate Stafford MD Anion gap [Moles/Vol] 11 mmol/L Normal 9-17 [facility] Comment on above: Performed By: #### C BC, BMPX ####[facility] [address] [place], [place] [phone] Director: Nate Stafford MD Calcium [Mass/Vol] 8.5 mg/dL Low 8.6-10.4 [facility] Comment on above: Performed By: #### C BC, BMPX ####[facility] [address] [place], [place] [phone] Director: Nate Stafford MD Chloride [Moles/Vol] 101 mmol/L Normal 98-107 [facility] Comment on above: Performed By: #### C BC, BMPX ####[facility] [address] [place] [address] [phone] Director: Nate Stafford MD CO2 [Moles/Vol] 23 mmol/L Normal 20-31 [facility] Comment on above: Performed By: #### C BC, BMPX ####[facility] [address] [place], [place] [phone] Director: Nate Stafford MD Creatinine [Mass/Vol] 0.62 mg/dL Low 0.70-1.20 [facility] Comment on above: Performed By: #### C BC, BMPX ####[facility] [address] [place], [place] [phone] Director: Nate Stafford MD GFR, Amer >60 Normal >60 [facility] Comment on above: Performed By: #### C BC, BMPX ####[facility] [address] [place], [place] [phone] Director: Nate Stafford MD GFR,non Amer >60 Normal >60 [facility] Comment on above: Performed By: #### C BC, BMPX ####[facility] [address] [place], [place] [phone] Director: Nate Stafford MD Glucose [Mass/Vol] 120 mg/dL High 70-99 [facility] Comment on above: Performed By: #### C BC, BMPX ####[facility] [address] [place], [place] [phone] Director: Nate Stafford MD Potassium [Moles/Vol] 4.3 mmol/L Normal 3.7-5.3 [facility] Comment on above: Performed By: #### C BC, BMPX ####[facility] [address] [place], [place] [phone] Director: Nate Stafford MD Sodium [Moles/Vol] 135 mmol/L Normal 135-144 [facility] Comment on above: Performed By: #### C BC, BMPX ####[facility] [address] [place], [place] [phone] Director: Nate Stafford MD Urea nitrogen [Mass/Vol] 14 mg/dL Normal 6-20 [facility] Comment on above: Performed By: #### C BC, BMPX ####[facility] [address] [place], [place] [phone] Director: Nate Stafford MD BUN/CRE Ratio NOT REPORTED Normal 9-20 [facility] Comment on above: Performed By: #### C BC, BMPX ####[facility] [address] [place], [place] [phone] Director: Nate Stafford MD Staging: NOT REPORTED Normal [facility] Comment on above: Performed By: #### C BC, BMPX ####[facility] [address] [place], [place] [phone] Director: Nate Stafford MD Basic Metabolic Panel w/ Ref johnny to MGOrdered By: Halina Pathak on 08-02-2020 Anion gap [Moles/Vol] 11 mmol/L 9 - 17 mmol/L [employer] Phone: Calcium [Mass/Vol] 8.5 mg/dL Low 8.6 - 10. 4 mg/dL [employer] Phone: Chloride [Moles/Vol] 101 mmol/L 98 - 10 7 mmol/L [employer] Phone: CO2 [Moles/Vol] 23 mmol/L 20 - 31 mmol/L [employer] Phone: Creatinine [Mass/Vol] 0.62 mg/dL Low 0.70 - 1.20 mg/dL [employer] Phone: GFR >60 >60 mL/min [employer] Phone: GFR Non- >60 >60 mL/min [employer] Phone: GFR/1.73 sq M.predicted MDRD (S/P/Bld) [Vol rate/Area] [employer] Phone: Comment on above: Average GFR for 40-4 9 years old: 99 mL/min/1.73sq m Chronic Kidney Disease: <60 mL/min/1.73sq m Kidney failure: <15 mL/min/1.73sq m eGFR calculated using average adult body mass. Additional eGFR calculator available at: http://www.[employer]/multiple_crcl_2012.htm GFR/1.73 sq M.predicted MDRD (S/P/Bld) [Vol rate/Area] NOT REPORTED [employer] Phone: Glucose [Mass/Vol] 120 mg/dL High 70 - 99 mg/dL [employer] Phone: Interpretation and review of laboratory results Abnormal [employer] Phone: Potassium [Moles/Vol] 4.3 mmol/L 3.7 - 5.3 mmol/L [employer] Phone: Sodium [Moles/Vol] 135 mmol/L 135 - 144 mmol/L [employer] Phone: Urea nitrogen (BldV) [Mass/Vol] 14 mg/dL 6 - 20 mg/dL [employer] Phone: Urea nitrogen/Creatinine (Bld) [Mass ratio] NOT REPORTED [employer] Phone: CBCon 08-02-2020 Erythrocyte distribution width (RBC) [Ratio] 13.0 % Normal 11.8-14.4 [facility] Comment on above: Performed By: #### C BC, BMPX ####[facility] [address] [place] [address] Lab Director: Nate Stafford MD Hematocrit (Bld) [Volume fraction] 41.8 % Normal 40.7-50.3 [facility] Comment on above: Performed By: #### C BC, BMPX ####[facility] [address] [place] [address] Lab Director: Nate Stafford MD Hemoglobin (Bld) [Mass/Vol] 13.8 g/dL Normal 13.0-17.0 [facility] Comment on above: Performed By: #### C BC, BMPX ####[facility] [address] [place] [address] Lab Director: Nate Stafford MD MCH (RBC) [Entitic mass] 29.3 pg Normal 25.2-33.5 [facility] Comment on above: Performed By: #### C BC, BMPX ####[facility] [address] [place] [address] Lab Director: Nate Stafford MD MCHC (RBC) [Mass/Vol] 33.0 g/dL Normal 28.4-34.8 [facility] Comment on above: Performed By: #### C BC, BMPX ####[facility] [address] [place], [place] [phone] Director: Nate Stafford MD MCV (RBC) [Entitic vol] 88.7 fL Normal 82.6-102.9 [facility] Comment on above: Performed By: #### C BC, BMPX ####[facility] [address] [place], [place] [phone] Director: Nate Stafford MD NRBC Automated 0.0 per 100 WBC Normal 0.0 [facility] Comment on above: Performed By: #### C BC, BMPX ####[address] [phone] Director: Nate Stafford MD Platelet mean volume (Bld) [Entitic vol] 10.9 fL Normal 8.1-13.5 [facility] Comment on above: Performed By: #### C BC, BMPX ####[address] [phone] Director: Nate Stafford MD Platelets (Bld) [#/Vol] 221 10*3/uL Normal 138-453 [facility] Comment on above: Performed By: #### C BC, BMPX ####[address] [address] Lab Director: Nate Stafford MD RBC (Bld) [#/Vol] 4.71 10*6/uL Normal 4.21-5.77 [facility] Comment on above: Performed By: #### C BC, BMPX ####[facility] [address] [place] [address] Lab Director: Nate Stafford MD WBC (Bld) [#/Vol] 10.6 10*3/uL Normal 3.5-11.3 [facility] Comment on above: Performed By: #### C BC, BMPX ####[address] [address] Lab Director: Nate Stafford MD CBCOrdered By: Halina Pathak on 08-02-2020 Hematocrit (Bld) [Volume fraction] 41.8 % 40.7 - 50.3 % [employer] Phone: Hemoglobin.gastroint estinal spec 1 Ql (Stl) 13.8 g/dL 13.0 - 17.0 g/dL [employer] Phone: MCH (RBC) [Entitic mass] 29.3 pg 25.2 - 33.5 pg [employer] Phone: MCHC (RBC) [Mass/Vol] 33.0 g/dL 28.4 - 34.8 g/dL [employer] Phone: MCV (RBC) [Entitic vol] 88.7 fL 82.6 - 102.9 fL [employer] Phone: NRBC Automated 0.0 0.0 per 100 WBC [employer] Phone: Platelet distribution width (Bld) [Ratio] 13.0 % 11.8 - 14.4 % [employer] Phone: Platelet mean volume (Bld) [Entitic vol] 10.9 fL 8.1 - 13.5 fL [employer] Phone: Platelets (Bld) [#/Vol] 221 10*3/uL [employer] Phone: RBC (Bld) [#/Vol] 4.71 10*6/uL 4.21 - 5.7 7 m/uL [employer] Phone: WBC (Bld) [#/Vol] 10.6 10*3/uL [employer] Phone: Trauma Profileon 08-02-2020 (cont.) Normal [facility] Comment on above: Result Comment: Aver age GFR for 40-49 years old: 99 mL/min/1.73sq m Chronic Kidney Disease: <60 mL/min/1.73sq m Kidney failure: <15 mL/min/1.73sq m eGFR calculated using average adult body mass. Additional eGFR calculator available at: http://www.[employer]/multiple_crcl_2012.htm Performed By: #### E RTPAlanna, TROPI ####[facility] [address] [place], [place] [phone] Director: Nate Stafford MD Anion gap [Moles/Vol] 10 mmol/L Normal 9-17 [facility] Comment on above: Performed By: #### E RTPF, TROPI ####[facility] [address] [place], [place] [phone] Director: Nate Stafford MD Chloride [Moles/Vol] 100 mmol/L Normal 98-107 [facility] Comment on above: Performed By: #### E RTPF, TROPI ####[facility] [address] [place], [place] [phone] Director: Nate Stafford MD CO2 [Moles/Vol] 24 mmol/L Normal 20-31 [facility] Comment on above: Performed By: #### E RTPF, TROPI ####[facility] [address] [place], [place] [phone] Director: Nate Stafford MD Creatinine [Mass/Vol] 0.71 mg/dL Normal 0.70-1.20 [facility] Comment on above: Performed By: #### E RTPF, TROPI ####[facility] [address] [place], [place] [phone] Director: Nate Stafford MD Ethanol [Mass/Vol] mg/dL Normal <10 [facility] Comment on above: Performed By: #### E RTPF, TROPI ####[facility] [address] [place], [place] [phone] Director: Nate Stafford MD Ethanol percent <0.010 Normal <0.010 [facility] Comment on above: Performed By: #### E RTPF, TROPI ####[facility] [address] [place] [address] Lab Director: Nate Stafford MD GFR, Amer >60 Normal >60 [facility] Comment on above: Performed By: #### E RTPF, TROPI ####[facility] [address] [place] [address] Lab Director: Nate Stafford MD GFR,non Amer >60 Normal >60 [facility] Comment on above: Performed By: #### E RTPF, TROPI ####[facility] [address] [place] [address] Lab Director: Nate Stafford MD Glucose [Mass/Vol] 109 mg/dL High 70-99 [facility] Comment on above: Performed By: #### E RTPF, TROPI ####[facility] [address] [place] [address] Lab Director: Nate Stafford MD Potassium [Moles/Vol] 4.2 mmol/L Normal 3.7-5.3 [facility] Comment on above: Performed By: #### E RTPF, TROPI ####[facility] [address] [place] [address] Lab Director: Nate Stafford MD Sodium [Moles/Vol] 134 mmol/L Low 135-144 [facility] Comment on above: Performed By: #### E RTPF, TROPI ####[facility] [address] [place] [address] Lab Director: Nate Stafford MD Urea nitrogen [Mass/Vol] 15 mg/dL Normal 6-20 [facility] Comment on above: Performed By: #### E RTPF, TROPI ####[facility] [address] [place] [address] lab Director: Nate Stafford MD Troponinon 08-02-2020 Troponin, High Sens 6 ng/L Normal 0-22 [facility] Comment on above: Result Comment: High Sensitivity Troponin values cannot be compared with other Troponin methodologies. Patients with high levels of Biotin oral intake (i.e >5mg/day) may have falsely decreased Troponin levels. Samples collected within 8 hours of biotin intake may require additional information for diagnosis. Performed By: #### E RTPF, TROPI ####[facility] [address] [place] [address] lab Director: Nate Stafford MD Type + Screenon 08-02-2020 Type + Screen Sample Expiration 08/04/2020,2359 Arm Band Number BE [id number] ABO/Rh(D) A NEGATIVE Antibody Screen NEGATIVE Normal [facility] Comment on above: Performed By: #### T YS ####[facility] [address] [place] [address] lab Director: Nate Stafford MD CT CERVICAL [...] bony abnormalities are noted Interpreted by: Johnny Samlls MD Signed by: Johnny Smalls MD 08/01/20 Final result Normal [facility] CT CERVICAL SPINE WO CONTRAS TOrdered By: Ronnie Lund on 08-01-2020 C6-7 cervical spondy losis and degenerative disc disease. Evidence of paracervical spasm. No acute bony abnormalities are noted [employer] Phone: EXAMINATION: CT OF T HE CERVICAL [...] intact. The visualized lung apices are clear. [employer] Phone: [place], [employer] Incoming R adiant Results From its learning/[employer] - 08/01/2020 7:04 PM EDT EXAMINATION: CT [...] spasm. No acute bony abnormalities are noted [employer] Phone: CT CHEST ABDOMEN PELVIS W [...] MD 08/01/20 Final result Normal [facility] CT CHEST ABDOMEN PELVIS W CO [...] to Lung-RADS guidelines. Reference: Radiology. 2017; 284(1):228-43. [email or web address] Work Phone: EXAMINATION: CT OF T HE [...] hernia. Bones/Soft Tissues: No acute osseous abnormality. [email or web address] Work Phone: [place], [employer] Incoming R adiant Results From its learning/[employer] - 08/01/2020 7:19 PM EDT EXAMINATION: CT [...] to Lung-RADS guidelines. Reference: Radiology. 2017; 284(1):228-43. [employer] Phone: CT HEAD WO CONTRASTon 2020 [...] MD 08/01/20 Final result Normal [facility] CT Head WO ContrastOrdered B y: Ronnie Lund on 08-01-2020 1. No acute intracra nial abnormality. [employer] Phone: EXAMINATION: CT OF T HE [...] clear. SOFT TISSUES/SKULL: The calvarium is intact. [employer] Phone: [place], [employer] Incoming R adiant Results From its learning/[employer] - 08/01/2020 7:01 PM EDT EXAMINATION: CT [...] intact. IMPRESSION: 1. No acute intracranial abnormality. [employer] Phone: CT LUMBAR SPINE TRAUMA RECON [...] MD 08/01/20 Final result Normal [facility] CT THORACIC SPINE TRAUMA REC ONSTRUCTIONon [...] MD 08/01/20 Final result Normal [facility] Drug Scr, Abuse, Uron 2020 Amphetamine(s),Ur Negative Normal NEG [facility] Comment on above: Result Comment: (Positive cutoff 1000 ng/mL) Performed By: #### U AMIC, LOUIS #### [facility] [employer] [address] [place] [address] [employer]actor Operator Head: Nate Stafford MD Barbiturate(s),Ur Negative Normal NEG [facility] Comment on above: Result Comment: (Positive cutoff 200 ng/mL) Performed By: #### U AMIC, LOUIS #### [facility] [employer] [address] [place] [address] [employer] Operator Head: Nate Stafford MD Benzodiazepine(s) Negative Normal NEG [facility] Comment on above: Result Comment: (Positive cutoff 200 ng/mL) Performed By: #### U AMIC, LOUIS #### [facility] [employer] [address] [place] [address] [employer] Operator Head: Nate Stafford MD Cannabinoid(s),Ur Negative Normal NEG [facility] Comment on above: Result Comment: (Positive cutoff 50 ng/mL) Performed By: #### U AMIC, LOUIS #### [facility] [address] [place] [address] [employer] Operator Head: Nate Stafford MD Cocaine Metabolite Negative [facility] Comment on above: Result Comment: (Positive cutoff 300 ng/mL) Performed By: #### U AMIC, LOUIS #### [facility] [address] [place] [address] [employer] Operator Head: Nate Stafford MD Interpretive Info Assay provides medic al screening only. The absence of expected drug(s) and/or Normal [facility] Comment on above: Result Comment: meta bolite(s) may indicate diluted or adulterated urine, limitations of testing or timing of collection. Testing for legal purposes should be confirmed by another method. To request confirmation of test result, please call the lab within 7 days of sample submission. Performed By: #### U AMIC, LOUIS #### [facility] [employer] [address] [place] [address] [employer] Operator Head: Nate Stafford MD Methadone Ql (U) Negative Normal NEG [facility] Comment on above: Result Comment: (Positive cutoff 300 ng/mL) Performed By: #### U AMIC, LOUIS #### [facility] [address] [place] [address] [employer] Operator Head: Nate Stafford MD Opiate(s), Ur Negative Normal NEG [facility] Comment on above: Result Comment: (Positive cutoff 300 ng/mL) Performed By: #### U AMIC, LOUIS #### [facility] [address] [place] [address] [employer] Operator Head: Nate Stafford MD Oxycodone, Urine Negative Normal NEG [facility] Comment on above: Result Comment: (Positive cutoff 100 ng/mL) Performed By: #### U AMIC, LOUIS #### [facility] [employer] [address] [place] [address] [employer] Operator Head: Nate Stafford MD Phencyclidine, Ur Negative Normal NEG [facility] Comment on above: Result Comment: (Positive cutoff 25 ng/mL) Performed By: #### U AMIC, LOUIS #### [facility] [employer] [address] [place] [address] [employer] Operator Head: Nate Stafford MD Buprenorphrine, Ur NOT REPORTED Normal NEG [facility] Comment on above: Performed By: #### U AMIC, LOUIS #### [facility] [employer] [address] [place] [address] [employer] Operator Head: Nate Stafford MD MDMA, Urine NOT REPORTED Normal NEG [facility] Comment on above: Performed By: #### U AMIC, LOUIS #### [facility] [address] [place] [address] [employer] Operator Head: Nate Stafford MD Methamphetamine, Ur NOT REPORTED Normal NEG [facility] Comment on above: Performed By: #### U AMIC, LOUIS #### [facility] [employer] [address] [place] [address] [employer] Operator Head: Nate Stafford MD Propoxyphene,Urine NOT REPORTED Normal NEG [facility] Comment on above: Performed By: #### U AMIC, LOUIS #### [employer] [address] [place], [place] [phone] Cd Reactor Operator Head: Nate Stafford MD Tricyclic antidepressants Screen Ql (U) NOT REPORTED Normal NEG [facility] Comment on above: Performed By: #### U AMIC, LOUIS #### [employer] [address] [place], [place] [phone] [employer] Operator Head: Nate Stafford MD No Panel InformationOrdered By: [...] to body habitus but requires clinical correlation. [employer] Phone: EXAMINATION: TWO XRA Y VIEWS [...] may relate to swelling or body habitus. [employer] Phone: [place], [employer] Incoming R adiant Results From its learning/[employer] - 08/01/2020 9:41 PM EDT EXAMINATION: TWO [...] to body habitus but requires clinical correlation. [employer] Phone: No Panel InformationOrdered By: Ronnie Lund on 08-01-2020 Degenerative disc di sease at L5-S1. No acute bony abnormalities are seen in the thoracic or lumbar spine [employer] Phone: EXAMINATION: CT OF T HE [...] SOFT TISSUES/RETROPERITONEUM: No paraspinal mass is seen. [employer] Phone: [place], [employer] Incoming R adiant Results From its learning/[employer] - 08/01/2020 7:11 PM EDT EXAMINATION: CT [...] seen in the thoracic or lumbar spine [employer] Phone: TRAUMA PANELOrdered By: Carlos Pathak on 08-01-2020 Lawson Test Unable to perform te sting: No specimen received. [employer] Phone: Anion gap [Moles/Vol] 10 mmol/L 9 - 17 mmol/L [employer] Phone: aPTT Coag (Bld) [Time] 23.3 s [employer] Phone: Comment on above: IV Heparin Therapy Range: 48.6-77.8 Blood Bank Specimen BILL FOR SERVICES PERFORMED [employer] Phone: Carboxyhemoglobin Unable to perform te sting: No specimen received. % [email or web address] Work Phone: Chloride [Moles/Vol] 100 mmol/L 98 - 10 7 mmol/L [employer] Phone: CO2 [Moles/Vol] 24 mmol/L 20 - 31 mmol/L [employer] Phone: Creatinine [Mass/Vol] 0.71 mg/dL 0.70 - 1.20 mg/dL [employer] Phone: Ethanol [Mass/Vol] mg/dL <10 mg/dL [employer] Phone: Ethanol percent <0.010 <0.010 % [employer] Work Phone: FIO2 Unable to perform te sting: No specimen received. [employer] Phone: GFR >60 >60 mL/min [employer] Phone: GFR Non- >60 >60 mL/min [employer] Phone: GFR/1.73 sq M.predicted MDRD (S/P/Bld) [Vol rate/Area] [employer] Phone: Comment on above: Average GFR for 40-4 9 years old: 99 mL/min/1.73sq m Chronic Kidney Disease: <60 mL/min/1.73sq m Kidney failure: <15 mL/min/1.73sq m eGFR calculated using average adult body mass. Additional eGFR calculator available at: http://www.[employer]/multiple_crcl_2012.htm GFR/1.73 sq M.predicted MDRD (S/P/Bld) [Vol rate/Area] NOT REPORTED [email or web address] Work Phone: Glucose [Mass/Vol] 109 mg/dL High 70 - 99 mg/dL [employer] Phone: hCG Qual PATIENT IS MALE NEGATIVE [email or web address] [facility] Work Phone: HCO3, Venous Unable to perform te sting: No specimen received. 24.0 - 30.0 mmol/L [employer] Phone: Hematocrit (Bld) [Volume fraction] 42.3 % 40.7 - 50.3 % [employer] Phone: Hemoglobin.gastroint estinal spec 1 Ql (Stl) 14.2 g/dL 13.0 - 17.0 g/dL [employer] Phone: INR Coag (Bld) [Relative time] 1.0 {INR} [employer] Phone: Comment on above: Therapeutic Range: Moderate Anticoagulant Intensity: INR = 2.0-3.0 High Anticoagulant Intensity: INR = 2.5-3.5 Interpretation and review of laboratory results Abnormal [employer] Phone: MCH (RBC) [Entitic mass] 29.3 pg 25.2 - 33.5 pg [employer] Phone: MCHC (RBC) [Mass/Vol] 33.6 g/dL 28.4 - 34.8 g/dL [employer] Phone: MCV (RBC) [Entitic vol] 87.2 fL 82.6 - 102.9 fL [employer] Phone: Methemoglobin Unable to perform te sting: No specimen received. % [employer] Phone: Mode Unable to perform te sting: No specimen received. [employer] Phone: Negative Base Excess, Srikanth Unable to perform testing: No specimen received. 0.0 - 2.0 mmol/L [employer] Phone: NOTIFICATION Unable to perform te sting: No specimen received. [employer] Phone: NOTIFICATION TIME Unable to perform te sting: No specimen received. [employer] Phone: NRBC Automated 0.0 0.0 per 100 WBC [employer] Phone: O2 Device/Flow/% Unable to perform te sting: No specimen received. [employer] Phone: O2 Sat, Srikanth Unable to perform te sting: No specimen received. % [employer] Phone: Oxyhemoglobin Unable to perform te sting: No specimen received. 95.0 - 98.0 % [employer] Phone: pCO2, Srikanth Unable to perform te sting: No specimen received. [employer] Phone: pCO2, Srikanth, Temp Adj Unable to perform te sting: No specimen received. [employer] Phone: Peep/Cpap Unable to perform te sting: No specimen received. [employer] Phone: pH, Srikanth Unable to perform te sting: No specimen received. [employer] Phone: pH, Srikanth, Temp Adj Unable to perform te sting: No specimen received. [employer] Phone: Platelet distribution width (Bld) [Ratio] 12.9 % 11.8 - 14.4 % [employer] Phone: Platelet mean volume (Bld) [Entitic vol] 10.1 fL 8.1 - 13.5 fL [employer] Phone: Platelets (Bld) [#/Vol] 220 10*3/uL [employer] Phone: pO2, Srikanth Unable to perform te sting: No specimen received. [employer] Phone: pO2, Srikanth, Temp Adj Unable to perform te sting: No specimen received. [employer] Phone: Positive Base Excess, Srikanth Unable to perform testing: No specimen received. 0.0 - 2.0 mmol/L [employer] Phone: Potassium [Moles/Vol] 4.2 mmol/L 3.7 - 5.3 mmol/L [employer] Phone: PSV Unable to perform te sting: No specimen received. [employer] Phone: PT Coag (PPP) [Time] 10.4 s [employer] Phone: Pt Temp Unable to perform te sting: No specimen received. [employer] Phone: Pt. Position Unable to perform te sting: No specimen received. [employer] Phone: RBC (Bld) [#/Vol] 4.85 10*6/uL 4.21 - 5.7 7 m/uL [employer] Phone: Respiratory Rate Unable to perform te sting: No specimen received. [employer] Phone: Sample Site Unable to perform te sting: No specimen received. [employer] Phone: Set Rate Unable to perform te sting: No specimen received. [employer] Phone: Sodium [Moles/Vol] 134 mmol/L Low 135 - 144 mmol/L [employer] Phone: Text for Respiratory Unable to perform t esting: No specimen received. [employer] Phone: Total Hb Unable to perform te sting: No specimen received. 12.0 - 16.0 g/dl [employer] Phone: Total Rate Unable to perform te sting: No specimen received. [employer] Phone: Urea nitrogen (BldV) [Mass/Vol] 15 mg/dL 6 - 20 mg/dL [employer] Phone: VT Unable to perform te sting: No specimen received. [employer] Phone: WBC (Bld) [#/Vol] 14.1 10*3/uL High [employer] Phone: TYPE AND SCREENOrdered By: Ivonne Ba on 08-01-2020 ABO/Rh Negative [employer] Phone: Arm Band Number [id number] [email or web address] [facility] Work Phone: Expiration Date 08/04/2020,2359 [employer] Work Phone: Trauma Profileon 08-01-2020 aPTT Coag (Bld) [Time] 23.3 s Normal 20.5-30.5 [facility] Comment on above: Result Comment: IV Heparin Therapy Range: 48.6-77.8 Performed By: #### E RTBERNIE TROPI ####[employer] [place] [phone] Lab Director: Nate Stafford MD INR Coag (PPP) [Relative time] 1.0 {INR} Normal [facility] Comment on above: Result Comment: Therapeutic Range: Moderate Anticoagulant Intensity: INR = 2.0-3.0 High Anticoagulant Intensity: INR = 2.5-3.5 Performed By: #### E RTPF, TROPI ####[employer] [place], [place] [phone] lab Director: Nate Stafford MD PT Coag (PPP) [Time] 10.4 s Normal 9.1-12.3 [facility] Comment on above: Performed By: #### E RTPAlanna TROPI ####[address] [address] Lab Director: Nate Stafford MD Erythrocyte distribution width (RBC) [Ratio] 12.9 % Normal 11.8-14.4 [facility] Comment on above: Performed By: #### E RTPAlanna TROPI ####[facility] [address] [place] [address] Lab Director: Nate Stafford MD Hematocrit (Bld) [Volume fraction] 42.3 % Normal 40.7-50.3 [facility] Comment on above: Performed By: #### E RTBERNIE TROPI ####[address] [address] Lab Director: Nate Stafford MD Hemoglobin (Bld) [Mass/Vol] 14.2 g/dL Normal 13.0-17.0 [facility] Comment on above: Performed By: #### E RTBERNIE TROPI ####[address] [address] Lab Director: Nate Stafford MD MCH (RBC) [Entitic mass] 29.3 pg Normal 25.2-33.5 [facility] Comment on above: Performed By: #### E RTPAlanna TROPI ####[facility] [address] [place] [address] Lab Director: Nate Stafford MD MCHC (RBC) [Mass/Vol] 33.6 g/dL Normal 28.4-34.8 [facility] Comment on above: Performed By: #### E RTPF, TROPI ####[facility] [address] [place] [address] Lab Director: Nate Stafford MD MCV (RBC) [Entitic vol] 87.2 fL Normal 82.6-102.9 [facility] Comment on above: Performed By: #### E RTPAlanna TROPI ####[facility] [address] [place], [place] [phone] Director: Nate Stafford MD NRBC Automated 0.0 per 100 WBC Normal 0.0 [facility] Comment on above: Performed By: #### E RTPAlanna TROPI ####[facility] [address] [place] [address] [phone] Director: Nate Stafford MD Platelet mean volume (Bld) [Entitic vol] 10.1 fL Normal 8.1-13.5 [facility] Comment on above: Performed By: #### E RTBERNIE, TROPI ####[address] [address] Lab Director: Nate Stafford MD Platelets (Bld) [#/Vol] 220 10*3/uL Normal 138-453 [facility] Comment on above: Performed By: #### E RTBERNIE TROPI ####[address] [address] Lab Director: Nate Stafford MD RBC (Bld) [#/Vol] 4.85 10*6/uL Normal 4.21-5.77 [facility] Comment on above: Performed By: #### E RTPF TROPI ####[facility] [address] [place] [address] Lab Director: Nate Stafford MD WBC (Bld) [#/Vol] 14.1 10*3/uL High 3.5-11.3 [facility] Comment on above: Performed By: #### E RTPF, TROPI ####[facility] [address] [place] [address] Lab Director: Nate Stafford MD Staging: NOT REPORTED Normal [facility] Comment on above: Performed By: #### E RTPF, TROPI ####[facility] [address] [place] [address] Lab Director: Nate Stafford MD Blood Bank BILL FOR SERVICES PERFORMED Normal [facility] Comment on above: Performed By: #### E RTPF, TROPI ####[facility] [address] [place] [address] Lab Director: Nate Stafford MD Troponinon 08-01-2020 Troponin Interp. NOT REPORTED Normal [facility] Comment on above: Performed By: #### E RTPF, TROPI ####[facility] [address] [place] [address] Lab Director: Nate Stafford MD Troponin T NOT REPORTED Normal <0.03 [facility] Comment on above: Performed By: #### E RTPF, TROPI ####[facility] [address] [place] [address] Lab Director: Nate Stafford MD TroponinOrdered By: Halina tyler on 08-01-2020 Troponin Interp NOT REPORTED [facility] Work Phone: Troponin T NOT REPORTED <0.03 ng/mL [facility] Work Phone: Troponin, High Sensitivity 6 ng/L 0 - 22 ng/L [facility] Work Phone: Comment on above: High Sensitivity Troponin values cannot be compared with other Troponin methodologies. Patients with high levels of Biotin oral intake (i.e >5mg/day) may have falsely decreased Troponin levels. Samples collected within 8 hours of biotin intake may require additional information for diagnosis. Urinalysis w/ Microon 2020 ----- Normal [facility] Comment on above: Performed By: #### U AMIC, LOUIS #### [facility] [address] [place], [place] [phone] [employer] Operator Head: Nate Stafford MD Acetoacetic Acid,Ur Negative Normal NEG [facility] Comment on above: Performed By: #### U AMIC, LOUIS #### [address] [address] [employer] Operator Head: Nate Stafford MD Bilirubin, SemiQt,Ur Negative Normal NEG [facility] Comment on above: Performed By: #### U AMIC, LOUIS #### [address] [address] [employer] Head: Nate Stafford MD Color (U) YELLOW Normal YEL [facility] Comment on above: Performed By: #### U AMIC, LOUIS #### [address] [address] [employer] Operator Head: Nate Stafford MD Epithelial cells LM Ql (Urine sed) 0 TO 2 Normal 0-5 [facility] Comment on above: Performed By: #### U AMIC, LOUIS #### [address] [address] [employer] Operator Head: Nate Stafford MD Glucose Ql (U) Negative Normal NEG [facility] Comment on above: Performed By: #### U AMIC, LOUIS #### [address] [address] [employer] Operator Head: Nate Stafford MD Hemoglobin, Ur Negative Normal NEG [facility] Comment on above: Performed By: #### U AMIC, LOUIS #### [address] [address] [employer] Head: Nate Stafford MD Leukocyte esterase Test strip Ql (U) Negative Normal NEG [facility] Comment on above: Performed By: #### U AMIC, [place] #### [address] [address] Cd Reactor Operator Head: Nate Stafford MD Nitrite,Ur Negative Normal NEG [facility] Comment on above: Performed By: #### U AMIC, [place] #### [address] [address] Cd Reactor Operator Head: Nate Stafford MD PH,Ur 6.5 Normal 5.0-8.0 [facility] Comment on above: Performed By: #### U AMIC, [place] #### [address] [address] Cd Reactor Operator Head: Nate Stafford MD Protein Ql (U) Negative Normal NEG [facility] Comment on above: Performed By: #### U AMIC, [place] #### [address] [address] Cd Reactor Operator Head: Nate Stafford MD Spec. [place],Ur 1.037 High 1.005-1.030 [facility] Comment on above: Performed By: #### U AMIC, [place] #### [address] [address] Cd Reactor Operator Head: Nate Stafford MD Turbidity CLEAR Normal CLEAR [facility] Comment on above: Performed By: #### U AMIC, [place] #### [address] [address] Cd Reactor Operator Head: Nate Stafford MD Urine RBC's 0 TO 2 Normal 0-4 [facility] Comment on above: Result Comment: Refe rence range defined for non-centrifuged specimen. Performed By: #### U AMIC, [place] #### [address] [address] Cd Reactor Operator Head: Nate Stafford MD Urine WBC's 2 TO 5 Normal 0-5 [facility] Comment on above: Performed By: #### U AMIC, [place] #### [facility] [employer] [address] [place] [id number] Cd Reactor Operator Head: aNte Stafford MD Urobilinogen,Ur Normal Normal NORM [facility] Comment on above: Performed By: #### U AMIC, [place] #### [facility] [address] [place] [id number] Cd Reactor Operator Head: Nate Stafford MD Amorphous sediment LM Ql (Urine sed) NOT REPORTED Normal NONE [facility] Comment on above: Performed By: #### U AMIC, [place] #### [facility] [address] [place] [id number] Cd Reactor Operator Head: Nate Stafford MD Bacteria NOT REPORTED Normal NONE [facility] Comment on above: Performed By: #### U AMIC, [place] #### [facility] [address] [place] [address] Cd Reactor Operator Head: Nate Stafford MD Casts NOT REPORTED Normal 0-8 [facility] Comment on above: Performed By: #### U AMIC, [place] #### [facility] [address] [place] [id number] Cd Reactor Operator Head: Nate Satfford MD Crystals LM Nom (Urine sed) NOT REPORTED Normal NONE [facility] Comment on above: Performed By: #### U AMIC, [place] #### [facility] [address] [place] [address] Cd Reactor Operator Head: Nate Stafford MD Epithelial, Renal NOT REPORTED Normal 0 [facility] Comment on above: Performed By: #### U AMIC, [place] #### [facility] [address] [place] [address] Cd Reactor Operator Head: Nate Stafford MD Mucus Strands NOT REPORTED Normal NONE [facility] Comment on above: Performed By: #### U AMIC, [place] #### [facility] [address] [place] [address] Cd Reactor Operator Head: Nate Stafford MD Other Observations NOT REPORTED Normal NREQ [facility] Comment on above: Performed By: #### U AMIC, [place] #### [facility] [address] [place], [place] [phone] Cd Reactor Operator Head: Nate Stafford MD Trichomonas NOT REPORTED Normal NONE [facility] Comment on above: Performed By: #### U AMIC, [place] #### [facility] [address] [place], [place] [phone] Cd Reactor Operator Head: Nate Stafford MD Yeast NOT REPORTED Normal NONE [facility] Comment on above: Performed By: #### U AMIC, [place] #### [facility] [employer] [address] [place] [id number] Cd Reactor Operator Head: Nate Stafford MD Urinalysis with microscopicO rdered By: Halina Pathak on 08-01-2020 - [email or web address] Work Phone: Amorphous, UA NOT REPORTED None [facility] Work Phone: Bacteria, UA NOT REPORTED None [facility] Work Phone: Bilirubin Urine Negative NEGATIVE [facility] Work Phone: Casts UA NOT REPORTED [facility] Work Phone: Color, UA YELLOW YELLOW [email or web address] Work Phone: Crystals, UA NOT REPORTED None /HPF [facility] Work Phone: Epithelial Cells UA 0 TO 2 [email or web address] Work Phone: Glucose, Ur Negative NEGATIVE [email or web address] Work Phone: Interpretation and review of laboratory results Abnormal [email or web address] Work Phone: Ketones Ql (U) Negative NEGATIVE [facility] Work Phone: Leukocyte esterase Test strip Ql (U) Negative NEGATIVE [facility] Work Phone: Mucus, UA NOT REPORTED None [employer] [facility] [facility] Work Phone: Nitrite, Urine Negative NEGATIVE [facility] Work Phone: Other Observations UA NOT REPORTED NOT REQ. [facility] Work Phone: pH, UA 6.5 [facility] Work Phone: Protein, UA Negative NEGATIVE [facility] Work Phone: RBC, UA 0 TO 2 [facility] [employer] Work Phone: Comment on above: Reference range defi lisandra for non-centrifuged specimen. Renal Epithelial, UA NOT REPORTED 0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 Requested Referral 08/10/2021 08/10/2022 1 1 Reason Comments Patient Education Assessment Specialty Diagnoses / Procedures Referred By Brian t Referred To Contact Nutrition Diagnoses Morbid obesity with BMI of 50.0-59.9, adult (HCC) Mixed hyperlipidemia Essential hypertension Arthralgia of multiple sites Prediabetes Obstructive sleep apnea syndrome Abnormal weight gain Fatty metamorphosis of liver Procedures CONSULT TO NUTRITION THERAPY OFFICE/OUTPATIENT [facility] MDM 60-74 MINUTES Anh Mena MD [address] [facility], [address] [place] [address] Referral ID Status Reason Start Date Expiration Date Visits Requested Visits Authorized [id number] Pending Review PCP Requested Referral 08/15/2021 11/13/2021 1 1 Reason Comments Medical Weight Management Specialty Diagnoses / Procedures Referred By Contac t Referred To Contact CT IMAGING Diagnoses Lung nodules Procedures CT CHEST WO IVCON CAT SCAN OF CHEST Trey Sharma MD [address] [place] [address] Ct Imaging Referral ID Status Reason Start Date Expiration Date V isits Requested Visits Authorized [id number] Closed Auto-Generate d Referral 08/11/2021 04/29/2022 1 [...] section and content) DATE CREATED AUTHOR 08/08/2020 [facility] DATE CREATED AUTHOR AUTHOR'S ORGANIZ ATION 08/01/2021 [facility] DATE CREATED AUTHOR AUTHOR'S ORGANIZ ATION 09/21/2021 [facility] DATE CREATED AUTHOR AUTHOR'S ORGANIZ ATION 04/25/2022 [facility] DATE CREATED AUTHOR AUTHOR'S ORGANIZ ATION 05/27/2022 [facility] DATE CREATED AUTHOR AUTHOR'S ORGANIZ ATION 05/31/2022 [facility] DATE CREATED AUTHOR AUTHOR'S ORGANIZ ATION 03/09/2023 [facility] DATE CREATED AUTHOR AUTHOR'S ORGANIZ ATION 04/13/2023 [facility] DATE CREATED AUTHOR AUTHOR'S ORGANIZ ATION 04/26/2023 [facility] DATE CREATED AUTHOR AUTHOR'S ORGANIZ ATION 06/18/2023 [facility] DATE CREATED AUTHOR AUTHOR'S ORGANIZ ATION 06/21/2023 [facility] DATE CREATED AUTHOR AUTHOR'S ORGANIZ ATION 07/05/2023 [facility] Source Comments (unrecognize d section and content) In the event this informatio n is protected by the Federal Confidentiality of Alcohol and Drug Abuse Patient Records regulations: The Federal rules restrict any use of the information to criminally investigate or prosecute any alcohol or drug abuse patient.[facility] the event this information is protected by the Federal Confidentiality of Alcohol and Drug Abuse Patient Records regulations: The Federal rules restrict any use of the information to criminally investigate or prosecute any alcohol or drug abuse patient.[facility] the event this information is protected by the Federal Confidentiality of Alcohol and Drug Abuse Patient Records regulations: The Federal rules restrict any use of the information to criminally investigate or prosecute any alcohol or drug abuse patient.[facility] the event this information is protected by the Federal Confidentiality of Alcohol and Drug Abuse Patient Records regulations: The Federal rules restrict any use of the information to criminally investigate or prosecute any alcohol or drug abuse patient.[facility] the event this information is protected by the Federal Confidentiality of Alcohol and Drug Abuse Patient Records regulations: The Federal rules restrict any use of the information to criminally investigate or prosecute any alcohol or drug abuse patient.[facility] the event this information is protected by the Federal Confidentiality of Alcohol and Drug Abuse Patient Records regulations: The Federal rules restrict any use of the information to criminally investigate or prosecute any alcohol or drug abuse patient.[facility] the event this information is protected by the Federal Confidentiality of Alcohol and Drug Abuse Patient Records regulations: The Federal rules restrict any use of the information to criminally investigate or prosecute any alcohol or drug abuse patient.[facility] the event this information is protected by the Federal Confidentiality of Alcohol and Drug Abuse Patient Records regulations: The Federal rules restrict any use of the information to criminally investigate or prosecute any alcohol or drug abuse patient.[facility] MemorialIn the event this information is protected by the Federal Confidentiality of Alcohol and Drug Abuse Patient Records regulations: The Federal rules restrict any use of the information to criminally investigate or prosecute any alcohol or drug abuse patient.[facility] MemorialIn the event this information is protected by the Federal Confidentiality of Alcohol and Drug Abuse Patient Records regulations: The Federal rules restrict any use of the information to criminally investigate or prosecute any alcohol or drug abuse patient.[facility] MemorialIn the event this information is protected by the Federal Confidentiality of Alcohol and Drug Abuse Patient Records regulations: The Federal rules restrict any use of the information to criminally investigate or prosecute any alcohol or drug abuse patient.[facility] MemorialIn the event this information is protected by the Federal Confidentiality of Alcohol and Drug Abuse Patient Records regulations: The Federal rules restrict any use of the information to criminally investigate or prosecute any alcohol or drug abuse patient.[facility] MemorialIn the event this information is protected by the Federal Confidentiality of Alcohol and Drug Abuse Patient Records regulations: The Federal rules restrict any use of the information to criminally investigate or prosecute any alcohol or drug abuse patient.[facility] MemorialIn the event this information is protected by the Federal Confidentiality of Alcohol and Drug Abuse Patient Records regulations: The Federal rules restrict any use of the information to criminally investigate or prosecute any alcohol or drug abuse patient.[facility] MemorialIn the event this information is protected by the Federal Confidentiality of Alcohol and Drug Abuse Patient Records regulations: The Federal rules restrict any use of the information to criminally investigate or prosecute any alcohol or drug abuse patient.[facility] MemorialIn the event this information is protected by the Federal Confidentiality of Alcohol and Drug Abuse Patient Records regulations: The Federal rules restrict any use of the information to criminally investigate or prosecute any alcohol or drug abuse patient.[facility] MemorialIn the event this information is protected by the Federal Confidentiality of Alcohol and Drug Abuse Patient Records regulations: The Federal rules restrict any use of the information to criminally investigate or prosecute any alcohol or drug abuse patient.[facility] MemorialIn the event this information is protected by the Federal Confidentiality of Alcohol and Drug Abuse Patient Records regulations: The Federal rules restrict any use of the information to criminally investigate or prosecute any alcohol or drug abuse patient.[facility] MemorialIn the event this information is protected by the Federal Confidentiality of Alcohol and Drug Abuse Patient Records regulations: The Federal rules restrict any use of the information to criminally investigate or prosecute any alcohol or drug abuse patient.[facility] MemorialIn the event this information is protected by the Federal Confidentiality of Alcohol and Drug Abuse Patient Records regulations: The Federal rules restrict any use of the information to criminally investigate or prosecute any alcohol or drug abuse patient.[facility] MemorialIn the event this information is protected by the Federal Confidentiality of Alcohol and Drug Abuse Patient Records regulations: The Federal rules restrict any use of the information to criminally investigate or prosecute any alcohol or drug abuse patient.[facility] MemorialIn the event this information is protected by the Federal Confidentiality of Alcohol and Drug Abuse Patient Records regulations: The Federal rules restrict any use of the information to criminally investigate or prosecute any alcohol or drug abuse patient.[facility] MemorialIn the event this information is protected by the Federal Confidentiality of Alcohol and Drug Abuse Patient Records regulations: The Federal rules restrict any use of the information to criminally investigate or prosecute any alcohol or drug abuse patient.[facility] MemorialIn the event this information is protected by the Federal Confidentiality of Alcohol and Drug Abuse Patient Records regulations: The Federal rules restrict any use of the information to criminally investigate or prosecute any alcohol or drug abuse patient.[facility] MemorialIn the event this information is protected by the Federal Confidentiality of Alcohol and Drug Abuse Patient Records regulations: The Federal rules restrict any use of the information to criminally investigate or prosecute any alcohol or drug abuse patient.[facility] MemorialIn the event this information is protected by the Federal Confidentiality of Alcohol and Drug Abuse Patient Records regulations: The Federal rules restrict any use of the information to criminally investigate or prosecute any alcohol or drug abuse patient.[facility] MemorialIn the event this information is protected by the Federal Confidentiality of Alcohol and Drug Abuse Patient Records regulations: The Federal rules restrict any use of the information to criminally investigate or prosecute any alcohol or drug abuse patient.[facility] MemorialIn the event this information is protected by the Federal Confidentiality of Alcohol and Drug Abuse Patient Records regulations: The Federal rules restrict any use of the information to criminally investigate or prosecute any alcohol or drug abuse patient.[facility] MemorialIn the event this information is protected by the Federal Confidentiality of Alcohol and Drug Abuse Patient Records regulations: The Federal rules restrict any use of the information to criminally investigate or prosecute any alcohol or drug abuse patient.[facility] MemorialIn the event this information is protected by the Federal Confidentiality of Alcohol and Drug Abuse Patient Records regulations: The Federal rules restrict any use of the information to criminally investigate or prosecute any alcohol or drug abuse patient.[facility] Care Teams (unrecognized sec tion and content) Operations Research Scientist Relationship Specialty Start Date End Date Salome Aguillon, CHILD WELFARE CONSULTANT.MEDICINE AND HEALTH SERVICE MANAGER [address] [place] [address] PCP - General Family Practice 11/23/19 Operations Research Scientist Relationship Specialty Start Date End Date Salome Aguillon, CHILD WELFARE CONSULTANT.MEDICINE AND HEALTH SERVICE MANAGER [address] [place] [address] PCP - General Family Practice 11/23/19 Operations Research Scientist Relationship Specialty Start Date End Date Salome Aguillon, CHILD WELFARE CONSULTANT.MEDICINE AND HEALTH SERVICE MANAGER [address] [place] [address] PCP - General Family Practice 11/23/19 Operations Research Scientist Relationship Specialty Start Date End Date Salome Aguillon, CHILD WELFARE CONSULTANT.MEDICINE AND HEALTH SERVICE MANAGER [address] [place] [address] PCP - General Family Practice 11/23/19 Operations Research Scientist Relationship Specialty Start Date End Date [facility] Salome, CHILD WELFARE CONSULTANT.MEDICINE AND HEALTH SERVICE MANAGER [address] [place] [address] PCP - General Family Practice 11/23/19 Operations Research Scientist Relationship Specialty Start Date End Date [facility] Salome, CHILD WELFARE CONSULTANT.MEDICINE AND HEALTH SERVICE MANAGER [address] [place] [address] PCP - General Family Practice 11/23/19 Operations Research Scientist Relationship Specialty Start Date End Date [facility] Salome, CHILD WELFARE CONSULTANT.MEDICINE AND HEALTH SERVICE MANAGER [address] [place] [address] PCP - General Family Practice 11/23/19 Operations Research Scientist Relationship Specialty Start Date End Date [facility] Salome, CHILD WELFARE CONSULTANT.MEDICINE AND HEALTH SERVICE MANAGER [address] [place] [address] PCP - General Family Practice 11/23/19 Operations Research Scientist Relationship Specialty Start Date End Date [facility] Salome, CHILD WELFARE CONSULTANT.MEDICINE AND HEALTH SERVICE MANAGER [address] [place] [address] PCP - General Family Practice 11/23/19 Operations Research Scientist Relationship Specialty Start Date End Date [facility] Salome, CHILD WELFARE CONSULTANT.MEDICINE AND HEALTH SERVICE MANAGER [address] [place] [address] PCP - General Family Practice 11/23/19 Operations Research Scientist Relationship Specialty Start Date End Date [facility] Salome, CHILD WELFARE CONSULTANT.MEDICINE AND HEALTH SERVICE MANAGER [address] [facility] [place] [address] PCP - General Family Practice 11/23/19 Operations Research Scientist Relationship Specialty Start Date End Date [facility] CHILD WELFARE CONSULTANT.MEDICINE AND HEALTH SERVICE MANAGER [address] [place] [address] PCP - General Family Practice 11/23/19 Operations Research Scientist Relationship Specialty Start Date End Date [facility] CHILD WELFARE CONSULTANT.MEDICINE AND HEALTH SERVICE MANAGER [address] [place] [address] PCP - General Family Practice 11/23/19 Operations Research Scientist Relationship Specialty Start Date End Date Salome Aguillon, CHILD WELFARE CONSULTANT.MEDICINE AND HEALTH SERVICE MANAGER [address] [place] [address] PCP - General Family Practice 11/23/19 Operations Research Scientist Relationship Specialty Start Date End Date [facility], CHILD WELFARE CONSULTANT.MEDICINE AND HEALTH SERVICE MANAGER [address] [place] [address] PCP - General Family Practice 11/23/19 Operations Research Scientist Relationship Specialty Start Date End Date Salome Aguillon, CHILD WELFARE CONSULTANT.MEDICINE AND HEALTH SERVICE MANAGER [address] [place] [address] PCP - General Family Medicine 11/23/19 Operations Research Scientist Relationship Specialty Start Date End Date Salome Aguillon, CHILD WELFARE CONSULTANT.MEDICINE AND HEALTH SERVICE MANAGER [address] [place] [address] PCP - General Family Medicine 11/23/19 Operations Research Scientist Relationship Specialty Start Date End Date Salome Aguillon, CHILD WELFARE CONSULTANT.MEDICINE AND HEALTH SERVICE MANAGER [address] [place] [address] PCP - General Family Medicine 11/23/19 Operations Research Scientist Relationship Specialty Start Date End Date Salome Aguillon, CHILD WELFARE CONSULTANT.MEDICINE AND HEALTH SERVICE MANAGER [address] [place] [address] PCP - General Family Medicine 11/23/19 Operations Research Scientist Relationship Specialty Start Date End Date Salome Aguillon, CHILD WELFARE CONSULTANT.MEDICINE AND HEALTH SERVICE MANAGER [address] [place] [address] PCP - General Family Medicine 11/23/19 Operations Research Scientist Relationship Specialty Start Date End Date Salome Aguillon, CHILD WELFARE CONSULTANT.MEDICINE AND HEALTH SERVICE MANAGER [address] [place] [address] PCP - General Family Medicine 11/23/19 Operations Research Scientist Relationship Specialty Start Date End Date [facility] Salome, CHILD WELFARE CONSULTANT.MEDICINE AND HEALTH SERVICE MANAGER [address] [place] [address] PCP - General Family Medicine 11/23/19 Operations Research Scientist Relationship Specialty Start Date End Date [facility] Salome, CHILD WELFARE CONSULTANT.MEDICINE AND HEALTH SERVICE MANAGER [address] [place] [address] PCP - General Family Medicine 11/23/19 Operations Research Scientist Relationship Specialty Start Date End Date [facility] Salome, CHILD WELFARE CONSULTANT.MEDICINE AND HEALTH SERVICE MANAGER [address] [place] [address] PCP - General Family Medicine 11/23/19 Operations Research Scientist Relationship Specialty Start Date End Date [facility] Salome, CHILD WELFARE CONSULTANT.MEDICINE AND HEALTH SERVICE MANAGER [address] [place] [address] PCP - General Family Medicine 11/23/19 Operations Research Scientist Relationship Specialty Start Date End Date [facility] Salome, CHILD WELFARE CONSULTANT.MEDICINE AND HEALTH SERVICE MANAGER [address] [place] [address] PCP - General Family Medicine 11/23/19 Operations Research Scientist Relationship Specialty Start Date End Date [facility] Salome, CHILD WELFARE CONSULTANT.MEDICINE AND HEALTH SERVICE MANAGER [address] [place] [address] PCP - General Family Medicine 11/23/19 Team Status: Active Member Role Status Dates Vonnie Guerrero COMMERCIAL RELATIONSHIP MANAGER-C Primary Care Provider Active Team Status: Inactive Member Role Status Dates Vonnie Guerrero COMMERCIAL RELATIONSHIP MANAGER-C Primary Care Provider Active Siri Quezada COMMERCIAL RELATIONSHIP MANAGER-C Attending Provider Active Team Status: Inactive Member Role Status Dates Salome Aguillon , COMMERCIAL RELATIONSHIP MANAGER-C Primary Care Provider Mis Yi COMMERCIAL RELATIONSHIP MANAGER-C Attending Provider Active Team Status: Inactive Member Role Status Dates Salome Aguillon COMMERCIAL RELATIONSHIP MANAGER-C Primary Care Provider Mis Quezada NP-C Attending [...] BE BASED ON THE PRIMARY CLINICAL RECORDS. [facility], [facility]. provides no warranty or guarantee of the accuracy or completeness of information in this document.
[2023-07-07 13:41] LABS: INR 2.49; Prothrombin Time 25.1 sec (9.0-11.6)
== END 2023-07-07 12:32 | disposition home or self-care (01) ==
LOC: LAB 12:31
PROVIDERS: PCP Family Medicine
DX: I35.1 Nonrheumatic aortic (valve) insufficiency (principal)
CPT/HCPCS: 36415; 85610

== ENCOUNTER 2023-07-10 12:03 | Outpatient (REF) | payer BC, SELFPAY ==
[2023-07-10 12:33] LABS: Estimated GFR (African America >60 (>=60); Estimated GFR (Non-African Ame >60 (>=60)
[2023-07-10 13:04] LABS: INR 2.39; Prothrombin Time 24.1 sec (9.0-11.6)
== END 2023-07-10 12:04 | disposition home or self-care (01) ==
LOC: LAB 12:03
PROVIDERS: PCP Family Medicine
DX: R78.81 Bacteremia (principal); I33.9 Acute and subacute endocarditis, unspecified; I35.1 Nonrheumatic aortic (valve) insufficiency
CPT/HCPCS: 36415; 82565; 84520; 85610

== ENCOUNTER 2023-07-16 11:01 | Outpatient (OUT) | payer BC, SELFPAY ==
[2023-07-16 12:11] LABS: Estimated GFR (African America >60 (>=60); Estimated GFR (Non-African Ame >60 (>=60)
[2023-07-16 12:14] LABS: Basophils Absolute Auto 0.1 10^3/uL (0.0-0.1); Basophils Percent Auto 0.8 % (0.2-2.0); Eosinophils Absolute Auto 0.2 10^3/uL (0.0-0.7); Eosinophils Percent Auto 2.3 % (0.9-7.0); Hematocrit 32.8 % (42.0-54.0); Hemoglobin 9.9 g/dL (14.0-18.0); Immature Granulocytes Abs Auto 0.02 10^3/uL (0.00-0.03); Immature Granulocytes Pct Auto 0.3 % (0.0-0.5); Lymphocytes Percent Auto 12.7 % (20.5-60.0); Mean Corpuscular HGB Conc 30.2 g/dL (29.9-35.2); Mean Corpuscular Hemoglobin 27.3 pg (25.9-34.0); Mean Corpuscular Volume 90.6 fL (80.0-94.0); Mean Platelet Volume 10.4 fL (9.5-13.5); Monocytes Absolute Auto 0.7 10^3/uL (0.3-0.8); Monocytes Percent Auto 9.8 % (1.7-12.0); Neutrophils Absolute Auto 5.6 10^3/uL (1.4-6.5); Neutrophils Percent Auto 74.1 % (43.0-75.0); Platelet Count 290 10^3/uL (150-450); Red Blood Count 3.62 10^6/uL (4.70-6.10); Red Cell Distribution Width 15.1 % (11.0-15.0); White Blood Count 7.6 10^3/uL (4.0-11.0)
[2023-07-16 13:23] LABS: INR 2.49; Prothrombin Time 25.1 sec (9.0-11.6)
== END 2023-07-16 11:02 | disposition home or self-care (01) ==
LOC: LAB 07-17 08:37
PROVIDERS: PCP Family Medicine; Visit Provider Nurse Practitioner
DX: R78.81 Bacteremia (principal); I33.9 Acute and subacute endocarditis, unspecified; I35.1 Nonrheumatic aortic (valve) insufficiency
CPT/HCPCS: 36415; 82565; 84520; 85025; 85610

== ENCOUNTER 2023-07-23 14:49 | Outpatient (REF) | payer BC, SELFPAY ==
[2023-07-23 15:20] LABS: INR 1.87; Prothrombin Time 19.1 sec (9.0-11.6)
[2023-07-23 15:37] LABS: Estimated GFR (African America >60 (>=60); Estimated GFR (Non-African Ame >60 (>=60)
[2023-07-23 15:40] LABS: Basophils Absolute Auto 0.1 10^3/uL (0.0-0.1); Basophils Percent Auto 0.9 % (0.2-2.0); Eosinophils Absolute Auto 0.6 10^3/uL (0.0-0.7); Eosinophils Percent Auto 7.1 % (0.9-7.0); Hematocrit 36.6 % (42.0-54.0); Hemoglobin 11.2 g/dL (14.0-18.0); Immature Granulocytes Abs Auto 0.01 10^3/uL (0.00-0.03); Immature Granulocytes Pct Auto 0.1 % (0.0-0.5); Lymphocytes Percent Auto 12.7 % (20.5-60.0); Mean Corpuscular HGB Conc 30.6 g/dL (29.9-35.2); Mean Corpuscular Hemoglobin 26.4 pg (25.9-34.0); Mean Corpuscular Volume 86.1 fL (80.0-94.0); Mean Platelet Volume 10.3 fL (9.5-13.5); Monocytes Absolute Auto 0.6 10^3/uL (0.3-0.8); Monocytes Percent Auto 7.9 % (1.7-12.0); Neutrophils Absolute Auto 5.5 10^3/uL (1.4-6.5); Neutrophils Percent Auto 71.3 % (43.0-75.0); Platelet Count 279 10^3/uL (150-450); Red Blood Count 4.25 10^6/uL (4.70-6.10); Red Cell Distribution Width 14.6 % (11.0-15.0); White Blood Count 7.7 10^3/uL (4.0-11.0)
== END 2023-07-23 14:50 | disposition home or self-care (01) ==
LOC: LAB 14:49
PROVIDERS: PCP Family Medicine; Visit Provider Internal Medicine Interventional Cardiology
DX: R78.81 Bacteremia (principal); I33.9 Acute and subacute endocarditis, unspecified; Z95.2 Presence of prosthetic heart valve
CPT/HCPCS: 36415; 82565; 84520; 85025; 85610

== ENCOUNTER 2023-07-24 10:20 | Outpatient (OUT) | payer BC, SELFPAY ==
--- NOTE | 2023-07-24 11:06 | PM.CN ---
Consult Note: HPI Data of Consult Patient: known to practice within the last 3 years Requesting Physician: Miya Batista NP Primary Care Provider: Demetrius Parish MD Consult Narrative Reason for consult: f/u Narrative: Pardeep Engel a pleasant 52 year old male presents for evaluation and management of chronic back pain. Patient failed to respond to greater than 6 weeks of PT/HEP, conservative medications. Lumbar xray consistent with degenerative changes, previously had significant improvement from bilateral L4/5 L5/S1 facet RFA however patient has had numerous ER visits and hospitalizations due to sepsis and pain, most recently patient had aortic valve replacement surgery as a result of infection. Patient now on continuous IV antibiotics. Patient currently following with infectious disease and cardiothoracic surgery, 1 month post-op. Patient currently utilizing baclofen 20mg TID, gabapentin 800mg AM and PM 400mg mid day, tylenol, lidocaine patches, norco 7.5-325mg BID-TID prn with benefit. Patient reporting pain in low back without radiculopathy 09/08 intermittent. Lumbar pain and spasming. cc:: CC: Miya Batista NP Review of Systems ROS Status of ROS 10 or more systems reviewed and unremarkable except as noted in history and below Musculoskeletal Reports: back pain, neck pain and joint pain PFSH PFSH Medical History Foot pain ?M79.673 - Pain in unspecified foot (ICD-10) Ankle pain ?M25.579 - Pain in unspecified ankle and joints of unspecified foot (ICD-10) Achilles tendinitis ?M76.60 - Achilles tendinitis, unspecified leg (ICD-10) Plantar fascial fibromatosis ?M72.2 - Plantar fascial fibromatosis (ICD-10) Migraine ?G43.909 - Migraine, unspecified, not intractable, without status migrainosus (ICD-10) GERD (gastroesophageal reflux disease) ?K21.9 - Gastro-esophageal reflux disease without esophagitis (ICD-10) Heartburn ?R12 - Heartburn (ICD-10) High cholesterol ?E78.00 - Pure hypercholesterolemia, unspecified (ICD-10) Calcaneal spur ?M77.30 - Calcaneal spur, unspecified foot (ICD-10) Strain of Achilles tendon ?S86.019A - Strain of unspecified Achilles tendon, initial encounter (ICD-10) Low back pain ?M54.50 - Low back pain, unspecified (ICD-10) Kidney stones ?N20.0 - Calculus of kidney (ICD-10) Sleep apnea ?G47.30 - Sleep apnea, unspecified (ICD-10) Hypertension ?I10 - Essential (primary) hypertension (ICD-10) Surgical History History of colonoscopy ?Z98.890 - Other specified postprocedural states (ICD-10) History of foot surgery ?Z98.890 - Other specified postprocedural states (ICD-10) H/O vasectomy (2014) ?Z98.52 - Vasectomy status (ICD-10) H/O shoulder replacement ?Z96.619 - Presence of unspecified artificial shoulder joint (ICD-10) History of carpal tunnel release ?Z98.890 - Other specified postprocedural states (ICD-10) Family History Grandmother Family history of CHF (congestive heart failure) Family history of COPD (chronic obstructive pulmonary disease) Mother Family history of COPD (chronic obstructive pulmonary disease) Family history of cancer Other Family history of lung cancer Social History Within the past year, how often did you have a drink containing alcohol: monthly or less Smoking status: Never smoker Non-prescribed substance use: denies use 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 [employer] Highest level of school completed/degree received: some college, no degree Are you now , , , , never or living with a partner: living with partner In a typical week, how many times do you talk on the telephone with family, friends, or neighbors: 3 or more times per week How often do you get together with friends or relatives: 3 or more times per week How often do you attend hinduism or latter-day services: never Do you belong to any clubs or organizations such as hinduism groups unions, fraternal or athletic groups, or school groups: no Total score: 2 Score interpretation: A score of greater than or equal to 2 indicates the lowest level of social isolation. Little interest or pleasure in doing things: not at all Feeling down, depressed, or hopeless: not at all Feel stressed/tense/nervous/anxious/difficulty sleeping: not at all Do you think of yourself as: straight/heterosexual Gender Identity: male Meds Home Medications and Allergies Home Medications ?Medication ?Instructions ?Recorded ?Confirmed ?Type acetaminophen 500 mg capsule 1,000 mg PO .Q12 PRN pain 01/28/23 06/20/23 History ibuprofen 200 mg tablet (I-Prin) 800 mg PO Q12H 01/28/23 06/20/23 History lisinopril 10 mg tablet 10 mg PO DAILY 01/28/23 06/20/23 History omeprazole 20 mg capsule,delayed 20 mg PO DAILY 01/28/23 06/20/23 History release aspirin 81 mg tablet,delayed 81 mg PO DAILY 02/24/23 06/20/23 History release (Adult Aspirin Regimen) cholecalciferol (vitamin D3) 25 2,000 unit PO DAILY 02/24/23 06/20/23 History mcg (1,000 unit) chewable tablet ([employer] Daily D) cyanocobalamin (vitamin B-12) 500 500 mcg PO DAILY 02/24/23 06/20/23 History mcg tablet (B-12 DOTS) magnesium 250 mg tablet 500 mg PO DAILY 03/04/23 06/20/23 History hydrocodone 7.5 mg-acetaminophen 1 tab PO TID PRN pain #21 tabs 05/30/23 06/20/23 Rx 325 mg tablet baclofen 10 mg tablet 10 mg PO BID 05/31/23 06/20/23 History vitamin B complex (B 1 tab PO DAILY 06/06/23 06/20/23 History Complex-Vitamin B12 tablet) naloxone 4 mg/actuation nasal 4 mg intranasal Q2M PRN opioid 06/12/23 06/20/23 Rx spray (Narcan) overdose #1 ea Allergies Allergy/AdvReac Type Severity Reaction Status Date / Time No Known Drug Allergies Allergy Verified 05/31/23 07:21 Exam Constitutional Documenting provider has reviewed patient's vital signs: yes Common normals: no apparent distress, oriented x3, healthy appearing, alert and well nourished General appearance: cooperative Nutritional appearance: obese HENMT Common normals: normocephalic, hearing grossly normal bilaterally and moist oral mucous membranes Head and scalp: normocephalic Eye Common normals: PERRL Pupil: PERRL Neck & C-Spine Common normals: full ROM General: normal visual inspection Chest Common normals: inspection of chest normal Respiratory Common normals: normal respiratory effort, no retractions and no use of accessory muscles Back & Pelvis Lumbar spine/lower back: ROM limited, pain with ROM and straight leg raise negative bilaterally Other: sensation intact BLE, strength 5/5 BLE Extremity Common normals: normal to inspection and full ROM Neuro Common normals: oriented x3, CN's II-XII intact bilaterally, moves all extremities, no focal motor deficits, no sensory deficits noted and deep tendon reflexes 2+ bilaterally Sensorium/orientation: alert Motor exam: strength 5/5 throughout and no movement abnormalities noted Psych Common normals: mental status grossly normal, thought process normal, cooperative, affect normal, speech normal and activity/motor behavior normal Speech: normal speech Thought process: normal thought process Results Additional Findings Additional findings: If on a controlled substance or opioids, I have checked an [place]AR[place] report on this patient and there are no aberrancies noted in the prescribing history.??If on a controlled substance or opioid a drug screen was completed and reviewed within the last year, and if there has not been a drug screen completed we ordered one today to monitor higher risk, state monitored pain medication use. As part of providing excellent, safe, comprehensive care, the following was completed at our patient's visit: 1. A medication reconciliation and review to ensure accurate knowledge of current/active medications, including asking our patients to inform us about any [id number] medications or herbal remedies/nutritional supplements/alternative remedies. 2. A review to specifically ensure our patients have had annual screening for screening for depression, screening for tobacco use, and screening for unhealthy alcohol use. For concerning screenings had a discussion with the patient, provided patient education, and recommended follow-up with primary care provider when appropriate. If patient noted with a risk of falling, they received education on strength, gait, and balance training to prevent future risk of falling. Assessment and Plan Assessment and Plan (1) Lumbar pain: Assessment and Plan: VICKIE previously 74%, 52%, today 46% (2) Lumbar radiculopathy: Assessment and Plan: resolved (3) Myofascial pain: (4) Lumbar spondylosis: (5) Encounter for long-term opiate analgesic use: Assessment and Plan: I feel these medications are improving the patient's quality of life and allow them to tolerate activities of daily living as well as participate in recreational activity.? The patient does not report intolerable side effects. The patient is NOT opioid naive and non-pharmacologic and non-opioid treatment has failed to significantly relieve the patient's pain and improve functionality. The patient has a diagnosis that is related to a somatic or visceral pain etiology. ? ?? I reviewed with the patient the potential risks and side effects with the use of? opioid medications including but not limited to respiratory depression,? sedation, and even . I verified the patient has access to naloxone should? these effects occur. I advised the patient to avoid the use of any other? sedation substances including alcohol, THC, and benzodiazepines while? taking opioid medications due to the risk of compounding side effects and? detrimental outcomes. I reviewed the [facility], pain treatment agreement, urine? drug screen, and opioid start talking forms. The patient was advised to let? their family know they had Naloxone in case they would need to administer? the medication.? ?? A drug screen was completed within the last year, and no aberrancies were noted regarding their use of controlled substances. The patient understands they are subject to the terms and conditions of the pain contract that they have signed. ? ?? I have checked an [place]AR[place] report on this patient today and there are no aberrancies noted in the prescribing history.? Plan continue current medication regimen, tolerating well without side effects offered rotation from baclofen but patient has failed cyclobenzaprine, methocarbamol, tizanidine in the past. Has been on baclofen 20mg TID, increased from 10mg BID, for 1 week with mild improvement defer additional injection therapy at this time, very high risk with chronic infection currently on continuous antibiotics through PICC. could benefit from TPIs in the future continue f/u with PCP, cardiology, ID f/u [address] Pena
== END 2023-07-24 10:21 | disposition home or self-care (01) ==
LOC: PM 10:21
PROVIDERS: PCP Family Medicine; Visit Provider Nurse Practitioner
DX: M54.50 Low back pain, unspecified (principal); M54.16 Radiculopathy, lumbar region; M79.18 Myalgia, other site; M47.816 Spondylosis without myelopathy or radiculopathy, lumbar region; Z79.891 Long term (current) use of opiate analgesic
CPT/HCPCS: G0463

== ENCOUNTER 2023-07-30 11:12 | Outpatient (REF) | payer BC, SELFPAY ==
[2023-07-30 12:00] LABS: Estimated GFR (African America >60 (>=60); Estimated GFR (Non-African Ame >60 (>=60)
[2023-07-30 12:13] LABS: INR 1.61; Prothrombin Time 16.6 sec (9.0-11.6)
[2023-07-30 12:18] LABS: Basophils Absolute Auto 0.1 10^3/uL (0.0-0.1); Eosinophils Absolute Auto 0.3 10^3/uL (0.0-0.7); Hematocrit 36.2 % (42.0-54.0); Hemoglobin 10.8 g/dL (14.0-18.0); Immature Granulocytes Abs Auto 0.02 10^3/uL (0.00-0.03); Immature Granulocytes Pct Auto 0.3 % (0.0-0.5); Lymphocytes Absolute Auto 0.8 10^3/uL (1.2-3.8); Mean Corpuscular HGB Conc 29.8 g/dL (29.9-35.2); Mean Corpuscular Hemoglobin 25.5 pg (25.9-34.0); Mean Corpuscular Volume 85.6 fL (80.0-94.0); Mean Platelet Volume 10.6 fL (9.5-13.5); Monocytes Absolute Auto 0.5 10^3/uL (0.3-0.8); Monocytes Percent Auto 8.5 % (1.7-12.0); Neutrophils Absolute Auto 4.6 10^3/uL (1.4-6.5); Neutrophils Percent Auto 74.2 % (43.0-75.0); Platelet Count 274 10^3/uL (150-450); Red Blood Count 4.23 10^6/uL (4.70-6.10); Red Cell Distribution Width 14.2 % (11.0-15.0); White Blood Count 6.2 10^3/uL (4.0-11.0)
== END 2023-07-30 11:13 | disposition home or self-care (01) ==
LOC: LAB 11:12
PROVIDERS: PCP Family Medicine; Visit Provider Internal Medicine Interventional Cardiology
DX: R78.81 Bacteremia (principal); I33.9 Acute and subacute endocarditis, unspecified; Z95.2 Presence of prosthetic heart valve
CPT/HCPCS: 36415; 82565; 84520; 85025; 85610

== ENCOUNTER 2023-07-31 04:44 | Outpatient (RCR) | payer BC, SELFPAY | END 2023-08-30 12:08 | disposition home or self-care (01) | LOC: MM 04:44 | PROVIDERS: PCP Family Medicine; Visit Provider Internal Medicine | DX: Z51.81 Encounter for therapeutic drug level monitoring (principal); Z79.01 Long term (current) use of anticoagulants; Z95.2 Presence of prosthetic heart valve | CPT/HCPCS: 85610; G0463 ==

== ENCOUNTER 2023-08-06 09:25 | Outpatient (REF) | payer BC, SELFPAY ==
[2023-08-06 10:25] LABS: Basophils Percent Auto 0.6 % (0.2-2.0); Eosinophils Absolute Auto 0.2 10^3/uL (0.0-0.7); Eosinophils Percent Auto 4.3 % (0.9-7.0); Hematocrit 33.9 % (42.0-54.0); Hemoglobin 10.3 g/dL (14.0-18.0); Immature Granulocytes Abs Auto 0.01 10^3/uL (0.00-0.03); Immature Granulocytes Pct Auto 0.2 % (0.0-0.5); Lymphocytes Absolute Auto 0.5 10^3/uL (1.2-3.8); Lymphocytes Percent Auto 10.6 % (20.5-60.0); Mean Corpuscular HGB Conc 30.4 g/dL (29.9-35.2); Mean Corpuscular Hemoglobin 25.6 pg (25.9-34.0); Mean Corpuscular Volume 84.3 fL (80.0-94.0); Mean Platelet Volume 10.2 fL (9.5-13.5); Monocytes Absolute Auto 0.5 10^3/uL (0.3-0.8); Monocytes Percent Auto 9.8 % (1.7-12.0); Neutrophils Absolute Auto 3.8 10^3/uL (1.4-6.5); Neutrophils Percent Auto 74.5 % (43.0-75.0); Platelet Count 247 10^3/uL (150-450); Red Blood Count 4.02 10^6/uL (4.70-6.10); Red Cell Distribution Width 14.1 % (11.0-15.0); White Blood Count 5.1 10^3/uL (4.0-11.0)
[2023-08-06 10:33] LABS: Estimated GFR (African America >60 (>=60); Estimated GFR (Non-African Ame >60 (>=60)
[2023-08-06 10:39] LABS: INR 2.05; Prothrombin Time 20.2 sec (9.0-11.6)
== END 2023-08-06 09:26 | disposition home or self-care (01) ==
LOC: LAB 09:25
PROVIDERS: PCP Family Medicine
DX: R78.81 Bacteremia (principal); I33.9 Acute and subacute endocarditis, unspecified; Z95.2 Presence of prosthetic heart valve
CPT/HCPCS: 36415; 82565; 84520; 85025; 85610

== ENCOUNTER 2023-08-17 08:01 | Outpatient (OUT) | payer BC, SELFPAY ==
--- NOTE | 2023-08-17 | XR_ITS ---
[address] [address] Patient Name: NEHAL BAIG MRN: [id number] date: 1970 Sex: M Assigned Patient Location: LAB Current Patient Location: LAB Accession/Order Number: [id number] Exam Date: 08/17/2023 08:40 Report Date: 08/17/2023 12:52 At the request of: KENDALL SANDOVAL Procedure: XR chest 2V EXAM: XR chest 2V HISTORY: Chronic cough R05.3 COMPARISON: 05/29/2023 TECHNIQUE: Frontal and lateral views of the chest FINDINGS: No focal consolidations or pleural effusions. Cardiomegaly. Median sternotomy. Left shoulder arthroplasty. XR/XR chest 2V IMPRESSION: No acute disease. Cardiomegaly. Electronically authenticated by: HUNTER DIMAS Date: 08/17/2023 12:52
--- OUTSIDE RECORDS SUMMARY | 2023-08-17 08:06 | XMS_ITS | CCD ---
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 COUNT 216 10*3/uL Normal 150-400 [facility] Comment on above: Performed By: #### L [id number] ####[facility] ([facility])[address] [place] [address] RBC (Bld) [#/Vol] 2.94 10*6/uL Low 4.20-5.70 [facility] Comment on above: Performed By: #### L [id number] ####[facility] ([facility])[address] [place] [address] WBC (Bld) [#/Vol] 4.87 10*3/uL Normal 4.00-10.60 [facility] Comment on above: Performed By: #### L [id number] ####[facility] ([facility])[address] [place] [address] DSon 07-05-2023 DS [facility] Letter (Out)on 07-05-2023 Letter (Out) [facility] MAGNESIUMon 07-05-2023 Magnesium [Mass/Vol] 1.9 mg/dL Normal 1.9-2.7 [facility] Comment on above: Performed By: #### L [id number] ####[facility] ([facility])[address] [place] [address] POCT GLUCOSE METER UNSOLICIT ED RESULTSon 07-05-2023 Glucose [Mass/Vol] 123 mg/dL High 70-[address] [facility] Comment on above: Order Comment: Waive d Testing in the ED is performed under the ED CLIA certificate #[id number]. Result Comment: [email or web address] Performed By: #### L [id number] ####[facility] ([facility])[address] [place] [address] Glucose [Mass/Vol] 112 mg/dL High 70-[address] [facility] Comment on above: Order Comment: Waive d Testing in the ED is performed under the ED CLIA certificate #[id number]. Result Comment: [email or web address] Performed By: #### L [id number] ####[facility] ([facility])[address] [place] [address] PROTIME-INRon 07-05-2023 INR IN PPP BY COAGULATION ASSAY 2.17 High 0.90-1.10 [facility] Comment on above: Result Comment: ACCC P [...] CHEST 1995;108:231S-246S. Performed By: #### L [id number] ####[facility] (BEAKER)[address] [place] [address] PROTHROMBIN TIME (PT) IN PPP BY COAGULATION ASSAY 24.3 Seconds High 12.3-14.8 [facility] Comment on above: Performed By: #### L [id number] ####[facility] (BEAKER)[address] [place] [address] 30on 07-04-2023 30 Normal [facility] 30 Normal [facility] ANTI-XA (LOW MOLECULAR WGT H EPARIN LVL)on 07-04-2023 LMW HEPARIN (U/ML) IN PPP BY CHROMOGENIC METHOD 1.00 IU/mL Normal 0.6-1.2 [facility] Comment on above: Order Comment: For E [...] and LMWH. Performed By: #### L [id number] ####[facility] ([facility])[address] [place] [address] BASIC METABOLIC PANELon 04-0 Anion gap [Moles/Vol] 10 mmol/L Normal 7-20 [facility] Comment on above: Performed By: #### L [id number] ####[facility] ([facility])[address] [place] [address] Calcium [Mass/Vol] 8.6 mg/dL Normal 8.6-10.[address] [facility] Comment on above: Performed By: #### L [id number] ####[facility] ([facility])[address] [place] [address] Chloride [Moles/Vol] 103 mmol/L Normal 98-107 [facility] Comment on above: Performed By: #### L [id number] ####[facility] ([facility])[address] [place] [address] CO2 [Moles/Vol] 28 mmol/L Normal 21-31 [facility] Comment on above: Performed By: #### L [id number] ####[facility] ([facility])[address] [place] [address] Creatinine [Mass/Vol] 1.04 mg/dL Normal 0.70-1.30 [facility] Comment on above: Performed By: #### L [id number] ####[facility] ([facility])[address] [place] [address] GLOMERULAR FILTRATION RATE ML/MIN/1.73 SQ M.PREDICTED 87.5 mL/min/1.73m*2 Normal >60.0 [facility] Comment on above: Result Comment: The [facility]???s estimated glomerular filtration rate (eGFR) will no [...] of individuals. Performed By: #### L [id number] ####[facility] ([facility])[address] [facility] [place] [address] Glucose [Mass/Vol] 91 mg/dL Normal 70-[address] [facility] Comment on above: Performed By: #### L [id number] ####[facility] ([facility])[address] [facility] [place] [address] Potassium [Moles/Vol] 4.6 mmol/L Normal 3.5-5.1 [facility] Comment on above: Performed By: #### L [id number] ####[facility] ([facility])[address] [facility] [place] [address] Sodium [Moles/Vol] 136 mmol/L Normal 136-[address] [facility] Comment on above: Performed By: #### L [id number] ####[facility] ([facility])[address] [facility] [place] [address] Urea nitrogen [Mass/Vol] 13 mg/dL Normal 7-25 [facility] Comment on above: Performed By: #### L [id number] ####[facility] ([facility])[address] [facility] [place] [address] UREA NITROGEN/CREATININE (MASS RATIO) IN SER/PLAS 12.5 Normal [facility] Comment on above: Performed By: #### L [id number] ####[facility] ([facility])[address] [facility] [place] [address] CBCon 07-04-2023 Erythrocyte distribution width (RBC) [Ratio] 15.8 % High 11.5-15.0 [facility] Comment on above: Performed By: #### L [id number] ####[facility] (BEAKER)[address] [place] [address] ERYTHROCYTE MEAN CORPUSCULAR HEMOGLOBIN CONCENTRATION (G/DL) BY AUTOMATED 32.0 g/dL Normal 32.0-35.0 [facility] Comment on above: Performed By: #### L [id number] ####[facility] (BEAKER)[address] [address] Hematocrit (Bld) [Volume fraction] 24.7 % Low 39.0-55.0 [facility] Comment on above: Performed By: #### L [id number] ####[facility] (BEAKER)[address] [place] [address] Hemoglobin (Bld) [Mass/Vol] 7.9 g/dL Low 13.0-17.0 [facility] Comment on above: Performed By: #### L [id number] ####[facility] ([facility])[address] [place] [address] MCH (RBC) [Entitic mass] 28.9 pg Normal 27.0-33.0 [facility] Comment on above: Performed By: #### L [id number] ####[facility] ([facility])[address] [place] [address] MCV (RBC) [Entitic vol] 90.5 fL Normal 82.0-98.0 [facility] Comment on above: Performed By: #### L [id number] ####[facility] (BEAKER)[address] [place] [address] PLATELETS (10*3/UL) IN BLOOD AUTOMATED COUNT 243 10*3/uL Normal 150-400 [facility] Comment on above: Performed By: #### L [id number] ####[facility] (BEAKER)[address] [place] [address] RBC (Bld) [#/Vol] 2.73 10*6/uL Low 4.20-5.70 [facility] Comment on above: Performed By: #### L [id number] ####[facility] ([facility])[address] [place] [address] WBC (Bld) [#/Vol] 5.14 10*3/uL Normal 4.00-10.60 [facility] Comment on above: Performed By: #### L [id number] ####[facility] ([facility])[address] [place] [address] MAGNESIUMon 07-04-2023 Magnesium [Mass/Vol] 1.9 mg/dL Normal 1.9-2.7 [facility] Comment on above: Performed By: #### L [id number] ####[facility] ([facility])[address] [place] [address] POCT GLUCOSE METER UNSOLICIT ED RESULTSon 07-04-2023 Glucose [Mass/Vol] 112 mg/dL High 70-[address] [facility] Comment on above: Order Comment: Waive d Testing in the ED is performed under the ED CLIA certificate #[id number]. Result Comment: [email or web address] Performed By: #### L [id number] ####[facility] ([facility])[address] [place] [address] Glucose [Mass/Vol] 130 mg/dL High 70-[address] [facility] Comment on above: Order Comment: Waive d Testing in the ED is performed under the ED CLIA certificate #[id number]. Result Comment: [email or web address] Performed By: #### L [id number] ####[facility] ([facility])[address] [place] [address] Glucose [Mass/Vol] 127 mg/dL High 70-[address] [facility] Comment on above: Order Comment: Waive d Testing in the ED is performed under the ED CLIA certificate #[id number]. Result Comment: [email or web address] Performed By: #### L [id number] ####[facility] ([facility])[address] [place] [address] Glucose [Mass/Vol] 113 mg/dL High 70-[address] [facility] Comment on above: Order Comment: Waive d Testing in the ED is performed under the ED CLIA certificate #[id number]. Result Comment: [email or web address] Performed By: #### L [id number] ####[facility] ([employer])[address] [place] [address] PROTIME-INRon 07-04-2023 INR IN PPP BY COAGULATION ASSAY 1.77 High 0.90-1.10 [facility] Comment on above: Result Comment: ACCC P [...] CHEST 1995;108:231S-246S. Performed By: #### L [id number] ####[facility] (trend[facility]ly)[address] [place] [address] PROTHROMBIN TIME (PT) IN PPP BY COAGULATION ASSAY 20.7 Seconds High 12.3-14.8 [facility] Comment on above: Performed By: #### L [id number] ####[facility] ([facility])[address] [place] [address] 30on 07-03-2023 30 Normal [facility] ANTI-XA (HEPARIN LEVEL)on HEPARIN UNFRACTIONATED (U/ML) IN PPP BY CHROMOGENIC METHOD 0.12 IU/mL Invalid Interpretation Code 0.3-0.7 [facility] Comment on above: Result Comment: Sofy roxaban and Apixaban will interfere with the anti Xa assay used to monitor UFH and LMWH. Performed By: #### L [id number] ####[facility] ([facility])[address] [place] [address] BASIC METABOLIC PANELon 04-0 Anion gap [Moles/Vol] 11 mmol/L Normal 7-20 [facility] Comment on above: Performed By: #### L [id number] ####[facility] ([facility])[address] [place] [address] Calcium [Mass/Vol] 8.9 mg/dL Normal 8.6-10.[address] [facility] Comment on above: Performed By: #### L [id number] ####[facility] ([facility])[address] [place] [address] Chloride [Moles/Vol] 101 mmol/L Normal 98-107 [facility] Comment on above: Performed By: #### L [id number] ####[facility] ([facility])[address] [place] [address] CO2 [Moles/Vol] 28 mmol/L Normal 21-31 [facility] Comment on above: Performed By: #### L [id number] ####[facility] ([facility])[address] [place] [address] Creatinine [Mass/Vol] 1.03 mg/dL Normal 0.70-1.30 [facility] Comment on above: Performed By: #### L [id number] ####[facility] ([facility])[address] [place] [address] GLOMERULAR FILTRATION RATE ML/MIN/1.73 SQ M.PREDICTED 88.5 mL/min/1.73m*2 Normal >60.0 [facility] Comment on above: Result Comment: The [facility]???s estimated glomerular filtration rate (eGFR) will no [...] of individuals. Performed By: #### L [id number] ####[facility] ([facility])[address] [place] [address] Glucose [Mass/Vol] 87 mg/dL Normal 70-[address] [facility] Comment on above: Performed By: #### L [id number] ####[facility] ([facility])[address] [place] [address] Potassium [Moles/Vol] 4.4 mmol/L Normal 3.5-5.1 [facility] Comment on above: Performed By: #### L [id number] ####[facility] ([facility])[address] [place] [address] Sodium [Moles/Vol] 136 mmol/L Normal 136-[address] [facility] Comment on above: Performed By: #### L [id number] ####[facility] ([facility])[address] [place] [address] Urea nitrogen [Mass/Vol] 13 mg/dL Normal 7-25 [facility] Comment on above: Performed By: #### L [id number] ####[facility] ([facility])[address] [place] [address] UREA NITROGEN/CREATININE (MASS RATIO) IN SER/PLAS 12.6 Normal [facility] Comment on above: Performed By: #### L [id number] ####[facility] ([facility])[address] [place] [address] CBCon 07-03-2023 Erythrocyte distribution width (RBC) [Ratio] 15.5 % High 11.5-15.0 [facility] Comment on above: Performed By: #### L [id number] ####[facility] (BEAKER)[address] [place] [address] ERYTHROCYTE MEAN CORPUSCULAR HEMOGLOBIN CONCENTRATION (G/DL) BY AUTOMATED 31.9 g/dL Low 32.0-35.0 [facility] Comment on above: Performed By: #### L [id number] ####[facility] ([facility])[address] [place] [address] Hematocrit (Bld) [Volume fraction] 25.4 % Low 39.0-55.0 [facility] Comment on above: Performed By: #### L [id number] ####[facility] ([facility])[address] [place] [address] Hemoglobin (Bld) [Mass/Vol] 8.1 g/dL Low 13.0-17.0 [facility] Comment on above: Performed By: #### L [id number] ####[facility] ([facility])[address] [place], [place] [address] MCH (RBC) [Entitic mass] 28.8 pg Normal 27.0-33.0 [facility] Comment on above: Performed By: #### L [id number] ####[facility] ([facility])[address] [place] [address] MCV (RBC) [Entitic vol] 90.4 fL Normal 82.0-98.0 [facility] Comment on above: Performed By: #### L [id number] ####[facility] ([facility])[address] [place] [address] PLATELETS (10*3/UL) IN BLOOD AUTOMATED COUNT 247 10*3/uL Normal 150-400 [facility] Comment on above: Performed By: #### L [id number] ####[facility] ([facility])[address] [place] [address] RBC (Bld) [#/Vol] 2.81 10*6/uL Low 4.20-5.70 [facility] Comment on above: Performed By: #### L [id number] ####[facility] ([facility])[address] [place] [address] WBC (Bld) [#/Vol] 4.31 10*3/uL Normal 4.00-10.60 [facility] Comment on above: Performed By: #### L [id number] ####[facility] ([facility])[address] [place] [address] MAGNESIUMon 07-03-2023 Magnesium [Mass/Vol] 2.0 mg/dL Normal 1.9-2.7 [facility] Comment on above: Performed By: #### L [id number] ####[facility] ([facility])[address] [place] [address] POCT GLUCOSE METER UNSOLICIT ED RESULTSon 07-03-2023 Glucose [Mass/Vol] 127 mg/dL High 70-[address] [facility] Comment on above: Order Comment: Waive d Testing in the ED is performed under the ED CLIA certificate #[id number]. Result Comment: [email or web address] Performed By: #### L [id number] ####[facility] ([facility])[address] [place] [address] Glucose [Mass/Vol] 129 mg/dL High 70-[address] [facility] Comment on above: Order Comment: Waive d Testing in the ED is performed under the ED CLIA certificate #[id number]. Result Comment: [email or web address] Performed By: #### L [id number] ####[facility] ([facility])[address] [place] [address] Glucose [Mass/Vol] 135 mg/dL High 70-[address] [facility] Comment on above: Order Comment: Waive d Testing in the ED is performed under the ED CLIA certificate #[id number]. Result Comment: [email or web address] Performed By: #### L [id number] ####[facility] ([facility])[address] [place] [address] Glucose [Mass/Vol] 99 mg/dL Normal 70-[address] [facility] Comment on above: Order Comment: Waive d Testing in the ED is performed under the ED CLIA certificate #[id number]. Result Comment: [email or web address] Performed By: #### L [id number] ####[facility] ([facility])[address] [place] [address] PROTIME-INRon 07-03-2023 INR IN PPP BY COAGULATION ASSAY 1.62 High 0.90-1.10 [facility] Comment on above: Result Comment: ACCC P [...] CHEST 1995;108:231S-246S. Performed By: #### L [id number] ####[facility] ([employer])[address] [place] [address] PROTHROMBIN TIME (PT) IN PPP BY COAGULATION ASSAY 19.3 Seconds High 12.3-14.8 [facility] Comment on above: Performed By: #### L [id number] ####[facility] (BEAKER)[address] [place] [address] 30on 07-02-2023 30 The patient is Moder ately Stable - Low risk of patient condition declining or worsening The patient's goals for the shift include comfort, rest The clinical goals for the shift include Stable vitals, comfort Normal [facility] 30 Normal [facility] 30 Normal [facility] 30 Normal [facility] ANTI-XA (HEPARIN LEVEL)on HEPARIN UNFRACTIONATED (U/ML) IN PPP BY CHROMOGENIC METHOD 0.47 IU/mL Normal 0.3-0.7 [facility] Comment on above: Result Comment: [place] roxaban and Apixaban will interfere with the anti Xa assay used to monitor UFH and LMWH. Performed By: #### L [id number] ####[facility] (BEAKER)[address] [place] [address] BASIC METABOLIC PANELon 04-0 Anion gap [Moles/Vol] 12 mmol/L Normal 7-20 [facility] Comment on above: Performed By: #### L [id number] ####[facility] (BEAKER)[address] [place] [address] Calcium [Mass/Vol] 8.9 mg/dL Normal 8.6-10.[address] [facility] Comment on above: Performed By: #### L [id number] ####[facility] (BEAKER)[address] [place] [address] Chloride [Moles/Vol] 97 mmol/L Low 98-107 [facility] Comment on above: Performed By: #### L [id number] ####[facility] (BEAKER)[address] [place] [address] CO2 [Moles/Vol] 28 mmol/L Normal 21-31 [facility] Comment on above: Performed By: #### L [id number] ####[facility] (BEAKER)[address] [place] [address] Creatinine [Mass/Vol] 1.00 mg/dL Normal 0.70-1.30 [facility] Comment on above: Performed By: #### L [id number] ####[facility] (BEAKER)[address] [place] [address] GLOMERULAR FILTRATION RATE ML/MIN/1.73 SQ M.PREDICTED 91.7 mL/min/1.73m*2 Normal >60.0 [facility] Comment on above: Result Comment: The [facility]???s estimated glomerular filtration rate (eGFR) will no [...] of individuals. Performed By: #### L [id number] ####[facility] ([facility])[address] [facility] [place] [address] Glucose [Mass/Vol] 100 mg/dL Normal 70-[address] [facility] Comment on above: Performed By: #### L [id number] ####[facility] ([facility])[address] [place] [address] Potassium [Moles/Vol] 3.9 mmol/L Normal 3.5-5.1 [facility] Comment on above: Performed By: #### L [id number] ####[facility] ([facility])[address] [facility] [place] [address] Sodium [Moles/Vol] 133 mmol/L Low 136-[address] [facility] Comment on above: Performed By: #### L [id number] ####[facility] ([facility])[address] [facility] [place] [address] Urea nitrogen [Mass/Vol] 10 mg/dL Normal 7-25 [facility] Comment on above: Performed By: #### L [id number] ####[facility] ([facility])[address] [facility] [place] [address] UREA NITROGEN/CREATININE (MASS RATIO) IN SER/PLAS 10.0 Normal [facility] Comment on above: Performed By: #### L [id number] ####[facility] ([facility])[address] [facility] [place] [address] CBC WITH AUTO DIFFERENTIALon 07-02-2023 Basophils (Bld) [#/Vol] 0.05 10*3/uL Normal 0.00-0.20 [facility] Comment on above: Performed By: #### L [id number] ####[facility] (BEAKER)[address] [place] [address] Basophils/100 WBC (Bld) 0.9 % Normal 0.0-1.0 [facility] Comment on above: Performed By: #### L [id number] ####[facility] (BEAKER)[address] [place] [address] Eosinophils (Bld) [#/Vol] 0.27 10*3/uL Normal 0.00-0.50 [facility] Comment on above: Performed By: #### L [id number] ####[facility] (BEAKER)[address] [place] [address] Eosinophils/100 WBC (Bld) 4.6 % Normal 0.0-6.0 [facility] Comment on above: Performed By: #### L [id number] ####[facility] (BEAKER)[address] [place] [address] Erythrocyte distribution width (RBC) [Ratio] 15.4 % High 11.5-15.0 [facility] Comment on above: Performed By: #### L [id number] ####[facility] (BEAKER)[address] [place] [address] ERYTHROCYTE MEAN CORPUSCULAR HEMOGLOBIN CONCENTRATION (G/DL) BY AUTOMATED 32.7 g/dL Normal 32.0-35.0 [facility] Comment on above: Performed By: #### L [id number] ####[facility] (BEAKER)[address] [place] [address] Hematocrit (Bld) [Volume fraction] 27.2 % Low 39.0-55.0 [facility] Comment on above: Performed By: #### L [id number] ####[facility] ([facility]AKER)[address] [place] [address] Hemoglobin (Bld) [Mass/Vol] 8.9 g/dL Low 13.0-17.0 [facility] Comment on above: Performed By: #### L [id number] ####[facility] (BEAKER)[address] [place] [address] Immature granulocytes (Bld) [#/Vol] 0.04 10*3/uL Normal 0.00-0.20 [facility] Comment on above: Performed By: #### L [id number] ####[facility] (BEAKER)[address] [facility] [facility] [address] Immature granulocytes/100 WBC (Bld) 0.7 % Normal 0.0-1.0 [facility] Comment on above: Performed By: #### L [id number] ####[facility] (BEAKER)[address] [place] [address] Lymphocytes (Bld) [#/Vol] 1.10 10*3/uL Low 1.20-4.00 [facility] Comment on above: Performed By: #### L [id number] ####[facility] (BEAKER)[address] [place] [address] Lymphocytes/100 WBC (Bld) 18.8 % Low 20.0-45.0 [facility] Comment on above: Performed By: #### L [id number] ####[facility] (BEAKER)[address] [place] [address] MCH (RBC) [Entitic mass] 29.0 pg Normal 27.0-33.0 [facility] Comment on above: Performed By: #### L [id number] ####[facility] (BEAKER)[address] [facility] [facility] [place] [address] MCV (RBC) [Entitic vol] 88.6 fL Normal 82.0-98.0 [facility] Comment on above: Performed By: #### L [id number] ####[facility] (BEAKER)[address] [place] [address] Monocytes (Bld) [#/Vol] 0.73 10*3/uL Normal 0.10-1.00 [facility] Comment on above: Performed By: #### L [id number] ####[facility] (BEAKER)[address] [place] [address] Monocytes/100 WBC (Bld) 12.5 % High 5.0-12.0 [facility] Comment on above: Performed By: #### L [id number] ####[facility] ([facility])[address] [place] [address] Neutrophils (Bld) [#/Vol] 3.67 10*3/uL Normal 1.60-7.60 [facility] Comment on above: Performed By: #### L [id number] ####[facility] ([facility])[address] [address] Neutrophils/100 WBC (Bld) 62.5 % Normal 40.0-72.0 [facility] Comment on above: Performed By: #### L [id number] ####[facility] ([facility])[address] [place] [address] NRBC (PER 100 WBCS) BY AUTOMATED COUNT 0.0 % Normal 0 [facility] Comment on above: Performed By: #### L [id number] ####[facility] ([facility])[address] [place] [address] PLATELETS (10*3/UL) IN BLOOD AUTOMATED COUNT 292 10*3/uL Normal 150-400 [facility] Comment on above: Performed By: #### L [id number] ####[facility] ([facility])[address] [address] RBC (Bld) [#/Vol] 3.07 10*6/uL Low 4.20-5.70 [facility] Comment on above: Performed By: #### L [id number] ####[facility] ([facility])[address] [address] WBC (Bld) [#/Vol] 5.86 10*3/uL Normal 4.00-10.60 [facility] Comment on above: Performed By: #### L [id number] ####[facility] ([facility])[address] [place] [address] MAGNESIUMon 07-02-2023 Magnesium [Mass/Vol] 2.0 mg/dL Normal 1.9-2.7 [facility] Comment on above: Performed By: #### L [id number] ####[facility] ([facility] [place] [address] NURSNOTEon 07-02-2023 NURSNOTE Heparin level 0.47, no need for rate change at this time. Safety Maintained. Normal [facility] POCT GLUCOSE METER UNSOLICIT ED RESULTSon 07-02-2023 Glucose [Mass/Vol] 118 mg/dL High 70-[address] [facility] Comment on above: Order Comment: Waive d Testing in the ED is performed under the ED CLIA certificate #[id number]. Result Comment: [email or web address] Performed By: #### L [id number] ####[facility] ([facility])[address] [place] [address] Glucose [Mass/Vol] 154 mg/dL High 70-[address] [facility] Comment on above: Order Comment: Waive d Testing in the ED is performed under the ED CLIA certificate #[id number]. Result Comment: [email or web address] Performed By: #### L [id number] ####[facility] ([facility])[address] [place] [address] Glucose [Mass/Vol] 138 mg/dL High 70-[address] [facility] Comment on above: Order Comment: Waive d Testing in the ED is performed under the ED CLIA certificate #[id number]. Result Comment: [email or web address] Performed By: #### L [id number] ####[facility] ([facility])[address] [place] [address] Glucose [Mass/Vol] 106 mg/dL High 70-[address] [facility] Comment on above: Order Comment: Waive d Testing in the ED is performed under the ED CLIA certificate #[id number]. Result Comment: [email or web address] Performed By: #### L [id number] ####[facility] ([facility])[address] [place] [address] PROTIME-INRon 07-02-2023 INR IN PPP BY COAGULATION ASSAY 1.45 High 0.90-1.10 [facility] Comment on above: Result Comment: ACCC P [...] CHEST 1995;108:231S-246S. Performed By: #### L [id number] ####[facility] (BEAKER)[address] [place] [address] PROTHROMBIN TIME (PT) IN PPP BY COAGULATION ASSAY 17.7 Seconds High 12.3-14.8 [facility] Comment on above: Performed By: #### L [id number] ####[facility] (BEAKER)[address] [place] [address] 30on 07-01-2023 30 Normal [facility] 30 Normal [facility] 30 The patient is Moder ately Stable - Low risk of patient condition declining or worsening The patient's goals for the shift include comfort The clinical goals for the shift include safety Normal [facility] ANTI-XA (HEPARIN LEVEL)on HEPARIN UNFRACTIONATED (U/ML) IN PPP BY CHROMOGENIC METHOD 0.38 IU/mL Normal 0.3-0.7 [facility] Comment on above: Result Comment: [place] roxaban and Apixaban will interfere with the anti Xa assay used to monitor UFH and LMWH. Performed By: #### L [id number] ####[facility] ([facility]ER)[address] [place] [address] BASIC METABOLIC PANELon 04-0 Anion gap [Moles/Vol] 12 mmol/L Normal 7-20 [facility] Comment on above: Performed By: #### L [id number] ####[facility] (BEAKER)[address] [place] [address] Calcium [Mass/Vol] 8.6 mg/dL Normal 8.6-10.[address] [facility] Comment on above: Performed By: #### L [id number] ####[facility] (BEAKER)[address] [place] [address] Chloride [Moles/Vol] 95 mmol/L Low 98-107 [facility] Comment on above: Performed By: #### L [id number] ####[facility] ([facility])[address] [place] [address] CO2 [Moles/Vol] 30 mmol/L Normal 21-31 [facility] Comment on above: Performed By: #### L [id number] ####[facility] (BEAKER)[address] [place] [address] Creatinine [Mass/Vol] 0.89 mg/dL Normal 0.70-1.30 [facility] Comment on above: Performed By: #### L [id number] ####[facility] ([facility])[address] [place] [address] GLOMERULAR FILTRATION RATE ML/MIN/1.73 SQ M.PREDICTED 104.4 mL/min/1.73m*2 Normal >60.0 [facility] Comment on above: Result Comment: The [facility]???s estimated glomerular filtration rate (eGFR) will no [...] of individuals. Performed By: #### L [id number] ####[facility] ([facility])[address] [place] [address] Glucose [Mass/Vol] 95 mg/dL Normal 70-[address] [facility] Comment on above: Performed By: #### L [id number] ####[facility] ([facility])[address] [place] [address] Potassium [Moles/Vol] 3.6 mmol/L Normal 3.5-5.1 [facility] Comment on above: Performed By: #### L [id number] ####[facility] ([facility])[address] [place] [address] Sodium [Moles/Vol] 133 mmol/L Low 136-[address] [facility] Comment on above: Performed By: #### L [id number] ####[facility] ([facility])[address] [place] [address] Urea nitrogen [Mass/Vol] 9 mg/dL Normal 7-25 [facility] Comment on above: Performed By: #### L [id number] ####[facility] ([facility])[address] [place] [address] UREA NITROGEN/CREATININE (MASS RATIO) IN SER/PLAS 10.1 Normal [facility] Comment on above: Performed By: #### L [id number] ####[facility] ([facility])[address] [place] [address] CBCon 07-01-2023 Erythrocyte distribution width (RBC) [Ratio] 15.3 % High 11.5-15.0 [facility] Comment on above: Performed By: #### L [id number] ####[facility] ([facility])[address] [place] [address] ERYTHROCYTE MEAN CORPUSCULAR HEMOGLOBIN CONCENTRATION (G/DL) BY AUTOMATED 33.1 g/dL Normal 32.0-35.0 [facility] Comment on above: Performed By: #### L [id number] ####[facility] (BEAKER)[address] [place], [place] [address] Hematocrit (Bld) [Volume fraction] 24.2 % Low 39.0-55.0 [facility] Comment on above: Performed By: #### L [id number] ####[facility] ([facility])[address] [place], [place] [address] Hemoglobin (Bld) [Mass/Vol] 8.0 g/dL Low 13.0-17.0 [facility] Comment on above: Performed By: #### L [id number] ####[facility] (BEAKER)[address] [place], [place] [address] MCH (RBC) [Entitic mass] 29.1 pg Normal 27.0-33.0 [facility] Comment on above: Performed By: #### L [id number] ####[facility] ([facility])[address] [place], [place] [address] MCV (RBC) [Entitic vol] 88.0 fL Normal 82.0-98.0 [facility] Comment on above: Performed By: #### L [id number] ####[facility] ([facility])[address] [place], [place] [address] PLATELETS (10*3/UL) IN BLOOD AUTOMATED COUNT 218 10*3/uL Normal 150-400 [facility] Comment on above: Performed By: #### L [id number] ####[facility] (BEAKER)[address] [place], [place] [address] RBC (Bld) [#/Vol] 2.75 10*6/uL Low 4.20-5.70 [facility] Comment on above: Performed By: #### L [id number] ####[facility] (BEAKER)[address] [place], [place] [address] WBC (Bld) [#/Vol] 4.96 10*3/uL Normal 4.00-10.60 [facility] Comment on above: Performed By: #### L [id number] ####[facility] ([facility])[address] [place] [address] CONSULTon 07-01-2023 CONSULT Normal [facility] MAGNESIUMon 07-01-2023 Magnesium [Mass/Vol] 2.0 mg/dL Normal 1.9-2.7 [facility] Comment on above: Performed By: #### L [id number] ####[facility] ([facility])[address] [place] [address] POCT GLUCOSE METER UNSOLICIT ED RESULTSon 07-01-2023 Glucose [Mass/Vol] 128 mg/dL High 70-[address] [facility] Comment on above: Order Comment: Waive d Testing in the ED is performed under the ED CLIA certificate #[id number]. Result Comment: [email or web address] Performed By: #### L [id number] ####[facility] ([facility])[address] [place] [address] Glucose [Mass/Vol] 119 mg/dL High 70-[address] [facility] Comment on above: Order Comment: Waive d Testing in the ED is performed under the ED CLIA certificate #[id number]. Result Comment: [email or web address] Performed By: #### L [id number] ####[facility] ([employer])[address] [place] [address] Glucose [Mass/Vol] 151 mg/dL High 70-[address] [facility] Comment on above: Order Comment: Waive d Testing in the ED is performed under the ED CLIA certificate #[id number]. Result Comment: [email or web address] Performed By: #### L [id number] ####[facility] ([employer])[address] [place] [address] Glucose [Mass/Vol] 119 mg/dL High 70-[address] [facility] Comment on above: Order Comment: Waive d Testing in the ED is performed under the ED CLIA certificate #[id number]. Result Comment: [email or web address] Performed By: #### L [id number] ####[facility] ([employer])[address] [place] [address] Glucose [Mass/Vol] 121 mg/dL High 70-[address] [facility] Comment on above: Order Comment: Waive d Testing in the ED is performed under the ED CLIA certificate #[id number]. Result Comment: [email or web address] Performed By: #### L [id number] ####[facility] (BEAKER)[address] [place] [address] PROTIME-INRon 07-01-2023 INR IN PPP BY COAGULATION ASSAY 1.37 High 0.90-1.10 [facility] Comment on above: Result Comment: ACCC P [...] CHEST 1995;108:231S-246S. Performed By: #### L [id number] ####[facility] (BEAKER)[address] [place] [address] PROTHROMBIN TIME (PT) IN PPP BY COAGULATION ASSAY 16.9 Seconds High 12.3-14.8 [facility] Comment on above: Performed By: #### L [id number] ####[facility] (BEAKER)[address] [place] [address] 30on 06-30-2023 30 Normal [facility] ANTI-XA (HEPARIN LEVEL)on HEPARIN UNFRACTIONATED (U/ML) IN PPP BY CHROMOGENIC METHOD 0.39 IU/mL Normal 0.3-0.7 [facility] Comment on above: Result Comment: [place] roxaban and Apixaban will interfere with the anti Xa assay used to monitor UFH and LMWH. Performed By: #### L [id number] ####[facility] (BEAKER)[address] [place] [address] BASIC METABOLIC PANELon 03-3 Anion gap [Moles/Vol] 11 mmol/L Normal 7-20 [facility] Comment on above: Performed By: #### L [id number] ####[facility] ([facility])[address] [place] [address] Calcium [Mass/Vol] 8.9 mg/dL Normal 8.6-10.[address] [facility] Comment on above: Performed By: #### L [id number] ####[facility] ([facility])[address] [place] [address] Chloride [Moles/Vol] 96 mmol/L Low 98-107 [facility] Comment on above: Performed By: #### L [id number] ####[facility] ([facility])[address] [place] [address] CO2 [Moles/Vol] 30 mmol/L Normal 21-31 [facility] Comment on above: Performed By: #### L [id number] ####[facility] ([facility])[address] [place] [address] Creatinine [Mass/Vol] 0.78 mg/dL Normal 0.70-1.30 [facility] Comment on above: Performed By: #### L [id number] ####[facility] ([facility])[address] [facility] [place] [address] GLOMERULAR FILTRATION RATE ML/MIN/1.73 SQ M.PREDICTED 108.6 mL/min/1.73m*2 Normal >60.0 [facility] Comment on above: Result Comment: The [facility]???s estimated glomerular filtration rate (eGFR) will no [...] of individuals. Performed By: #### L [id number] ####[facility] ([facility])[address] [facility] [place] [address] Glucose [Mass/Vol] 108 mg/dL High 70-[address] [facility] Comment on above: Performed By: #### L [id number] ####[facility] ([facility])[address] [facility] [place] [address] Potassium [Moles/Vol] 3.9 mmol/L Normal 3.5-5.1 [facility] Comment on above: Performed By: #### L [id number] ####[facility] ([facility])[address] [facility] [place] [address] Sodium [Moles/Vol] 133 mmol/L Low 136-[address] [facility] Comment on above: Performed By: #### L [id number] ####[facility] ([facility])[address] [facility] [place] [address] Urea nitrogen [Mass/Vol] 9 mg/dL Normal 7-25 [facility] Comment on above: Performed By: #### L [id number] ####[facility] ([facility])[address] [facility] [place] [address] UREA NITROGEN/CREATININE (MASS RATIO) IN SER/PLAS 11.5 Normal [facility] Comment on above: Performed By: #### L [id number] ####[facility] ([facility])[address] [facility] [place] [address] CBCon 06-30-2023 Erythrocyte distribution width (RBC) [Ratio] 15.4 % High 11.5-15.0 [facility] Comment on above: Performed By: #### L [id number] ####[facility] (BEAKER)[address] [place] [address] ERYTHROCYTE MEAN CORPUSCULAR HEMOGLOBIN CONCENTRATION (G/DL) BY AUTOMATED 33.6 g/dL Normal 32.0-35.0 [facility] Comment on above: Performed By: #### L [id number] ####[facility] (BEAKER)[address] [address] Hematocrit (Bld) [Volume fraction] 24.4 % Low 39.0-55.0 [facility] Comment on above: Performed By: #### L [id number] ####[facility] (BEAKER)[address] [place], [place] [address] Hemoglobin (Bld) [Mass/Vol] 8.2 g/dL Low 13.0-17.0 [facility] Comment on above: Performed By: #### L [id number] ####[facility] (BEAKER)[address] [place] [address] MCH (RBC) [Entitic mass] 28.9 pg Normal 27.0-33.0 [facility] Comment on above: Performed By: #### L [id number] ####[facility] (BEAKER)[address] [place], [place] [address] MCV (RBC) [Entitic vol] 85.9 fL Normal 82.0-98.0 [facility] Comment on above: Performed By: #### L [id number] ####[facility] (BEAKER)[address] [place] [address] PLATELETS (10*3/UL) IN BLOOD AUTOMATED COUNT 203 10*3/uL Normal 150-400 [facility] Comment on above: Performed By: #### L [id number] ####[facility] (BEAKER)[address] [place], [place] [address] RBC (Bld) [#/Vol] 2.84 10*6/uL Low 4.20-5.70 [facility] Comment on above: Performed By: #### L [id number] ####[facility] (BEAKER)[address] [place] [address] WBC (Bld) [#/Vol] 6.03 10*3/uL Normal 4.00-10.60 [facility] Comment on above: Performed By: #### L [id number] ####[facility] ([facility])[address] [place] [address] CKon 06-30-2023 CREATINE KINASE (U/L) IN SER/PLAS 144.0 U/L Normal 30.0-223.0 [facility] Comment on above: Performed By: #### L [id number] ####[facility] ([facility])[address] [place] [address] MAGNESIUMon 06-30-2023 Magnesium [Mass/Vol] 2.1 mg/dL Normal 1.9-2.7 [facility] Comment on above: Performed By: #### L [id number] ####[facility] ([facility])[address] [address] Magnesium [Mass/Vol] 2.2 mg/dL Normal 1.9-2.7 [facility] Comment on above: Performed By: #### L [id number] ####[facility] ([facility])[address] [place] [address] POCT GLUCOSE METER UNSOLICIT ED RESULTSon 06-30-2023 Glucose [Mass/Vol] 243 mg/dL High 70-[address] [facility] Comment on above: Order Comment: Waive d Testing in the ED is performed under the ED CLIA certificate #[id number]. Result Comment: [email or web address] Performed By: #### L [id number] ####[facility] ([facility])[address] [place] [address] Glucose [Mass/Vol] 112 mg/dL High 70-[address] [facility] Comment on above: Order Comment: Waive d Testing in the ED is performed under the ED CLIA certificate #[id number]. Result Comment: [email or web address] Performed By: #### L [id number] ####[facility] ([facility])[address] [place] [address] Glucose [Mass/Vol] 124 mg/dL High 70-[address] [facility] Comment on above: Order Comment: Waive d Testing in the ED is performed under the ED CLIA certificate #[id number]. Result Comment: [email or web address] Performed By: #### L [id number] ####[facility] (BEAKER)[address] [place] [address] Glucose [Mass/Vol] 158 mg/dL High 70-[address] [facility] Comment on above: Order Comment: Waive d Testing in the ED is performed under the ED CLIA certificate #[id number]. Result Comment: [email or web address] Performed By: #### L [id number] ####[facility] ([facility])[address] [place] [address] POTASSIUMon 06-30-2023 Potassium [Moles/Vol] 4.0 mmol/L Normal 3.5-5.1 [facility] Comment on above: Performed By: #### L [id number] ####[facility] ([employer] [place] [address] PROTIME-INRon 06-30-2023 INR IN PPP BY COAGULATION ASSAY 1.21 High 0.90-1.10 [facility] Comment on above: Result Comment: ACCC P [...] CHEST 1995;[id number]. Performed By: #### L [id number] ####[facility] ([facility])[address] [place] [address] PROTHROMBIN TIME (PT) IN PPP BY COAGULATION ASSAY 15.4 Seconds High 12.3-14.8 [facility] Comment on above: Performed By: #### L [id number] ####[facility] ([facility])[address] [facility] [address] 30on 06-29-2023 30 Normal [facility] 30 Normal [facility] 30 Normal [facility] ANTI-XA (HEPARIN LEVEL)on HEPARIN UNFRACTIONATED (U/ML) IN PPP BY CHROMOGENIC METHOD 0.30 IU/mL Normal 0.3-0.7 [facility] Comment on above: Result Comment: Sofy roxaban and Apixaban will interfere with the anti Xa assay used to monitor UFH and LMWH. Performed By: #### L [id number] ####[facility] ([facility])[address] [place] [address] HEPARIN UNFRACTIONATED (U/ML) IN PPP BY CHROMOGENIC METHOD 0.31 IU/mL Normal 0.3-0.7 [facility] Comment on above: Result Comment: Sofy roxaban and Apixaban will interfere with the anti Xa assay used to monitor UFH and LMWH. Performed By: #### L [id number] ####[facility] ([facility])[address] [facility] [address] BASIC METABOLIC PANELon 06-01 Anion gap [Moles/Vol] 10 mmol/L Normal 7-20 [facility] Comment on above: Performed By: #### L [id number] ####[facility] ([facility])[address] [place] [address] Calcium [Mass/Vol] 8.3 mg/dL Low 8.6-10.[address] [facility] Comment on above: Performed By: #### L [id number] ####[facility] ([facility])[address] [place] [address] Chloride [Moles/Vol] 96 mmol/L Low 98-107 [facility] Comment on above: Performed By: #### L [id number] ####[facility] ([facility])[address] [place] [address] CO2 [Moles/Vol] 29 mmol/L Normal 21-31 [facility] Comment on above: Performed By: #### L [id number] ####[facility] ([facility])[address] [place] [address] Creatinine [Mass/Vol] 0.74 mg/dL Normal 0.70-1.30 [facility] Comment on above: Performed By: #### L [id number] ####[facility] ([facility])[address] [place] [address] GLOMERULAR FILTRATION RATE ML/MIN/1.73 SQ M.PREDICTED 110.4 mL/min/1.73m*2 Normal >60.0 [facility] Comment on above: Result Comment: The [facility]???s estimated glomerular filtration rate (eGFR) will no [...] of individuals. Performed By: #### L [id number] ####[facility] ([facility])[address] [place] [address] Glucose [Mass/Vol] 107 mg/dL High 70-[address] [facility] Comment on above: Performed By: #### L [id number] ####[facility] ([facility])[address] [place] [address] Potassium [Moles/Vol] 4.3 mmol/L Normal 3.5-5.1 [facility] Comment on above: Performed By: #### L [id number] ####[facility] ([facility])[address] [place] [address] Sodium [Moles/Vol] 131 mmol/L Low 136-[address] [facility] Comment on above: Performed By: #### L [id number] ####[facility] ([facility])[address] [place] [address] Urea nitrogen [Mass/Vol] 9 mg/dL Normal 7-25 [facility] Comment on above: Performed By: #### L [id number] ####[facility] ([facility])[address] [place] [address] UREA NITROGEN/CREATININE (MASS RATIO) IN SER/PLAS 12.2 Normal [facility] Comment on above: Performed By: #### L [id number] ####[facility] ([facility])[address] [place] [address] CBCon 06-29-2023 Erythrocyte distribution width (RBC) [Ratio] 15.8 % High 11.5-15.0 [facility] Comment on above: Performed By: #### L [id number] ####[facility] ([facility])[address] [place] [address] ERYTHROCYTE MEAN CORPUSCULAR HEMOGLOBIN CONCENTRATION (G/DL) BY AUTOMATED 33.6 g/dL Normal 32.0-35.0 [facility] Comment on above: Performed By: #### L [id number] ####[facility] ([facility])[address] [place] [address] Hematocrit (Bld) [Volume fraction] 23.5 % Low 39.0-55.0 [facility] Comment on above: Performed By: #### L [id number] ####[facility] ([facility])[address] [place] [address] Hemoglobin (Bld) [Mass/Vol] 7.9 g/dL Low 13.0-17.0 [facility] Comment on above: Performed By: #### L [id number] ####[facility] ([facility])[address] [place] [address] MCH (RBC) [Entitic mass] 29.5 pg Normal 27.0-33.0 [facility] Comment on above: Performed By: #### L [id number] ####[facility] ([facility])[address] [place] [address] MCV (RBC) [Entitic vol] 87.7 fL Normal 82.0-98.0 [facility] Comment on above: Performed By: #### L [id number] ####[facility] ([facility])[address] [place] [address] PLATELETS (10*3/UL) IN BLOOD AUTOMATED COUNT 161 10*3/uL Normal 150-400 [facility] Comment on above: Performed By: #### L [id number] ####[facility] ([facility])[address] [place] [address] RBC (Bld) [#/Vol] 2.68 10*6/uL Low 4.20-5.70 [facility] Comment on above: Performed By: #### L [id number] ####[facility] ([facility])[address] [place] [address] WBC (Bld) [#/Vol] 6.52 10*3/uL Normal 4.00-10.60 [facility] Comment on above: Performed By: #### L [id number] ####[facility] ([facility])[address] [place] [address] MAGNESIUMon 06-29-2023 Magnesium [Mass/Vol] 2.3 mg/dL Normal 1.9-2.7 [facility] Comment on above: Performed By: #### L [id number] ####[facility] ([facility])[address] [place] [address] Magnesium [Mass/Vol] 2.0 mg/dL Normal 1.9-2.7 [facility] Comment on above: Performed By: #### L [id number] ####[facility] ([employer])[address] [place] [address] NURSNOTEon 06-29-2023 NURSNOTE Normal [facility] PHOSPHORUSon 06-29-2023 Magnesium [Mass/Vol] 3.2 mg/dL Normal 2.5-5.0 [facility] Comment on above: Performed By: #### L [id number] ####[facility] ([facility])[address] [place] [address] POCT GLUCOSE METER UNSOLICIT ED RESULTSon 06-29-2023 Glucose [Mass/Vol] 129 mg/dL High 70-[address] [facility] Comment on above: Order Comment: Waive d Testing in the ED is performed under the ED CLIA certificate #[id number]. Result Comment: [email or web address] [email or web address] Performed By: #### L [id number] ####[facility] ([employer])[address] [place] [address] Glucose [Mass/Vol] 108 mg/dL High 70-[address] [facility] Comment on above: Order Comment: Waive d Testing in the ED is performed under the ED CLIA certificate #[id number]. Result Comment: [email or web address] Performed By: #### L [id number] ####[facility] ([employer])[address] [place] [address] Glucose [Mass/Vol] 142 mg/dL High 70-[address] [facility] Comment on above: Order Comment: Waive d Testing in the ED is performed under the ED CLIA certificate #[id number]. Result Comment: [email or web address] Performed By: #### L [id number] ####[facility] ([employer])[address] [place] [address] Glucose [Mass/Vol] 136 mg/dL High 70-[address] [facility] Comment on above: Order Comment: Waive d Testing in the ED is performed under the ED CLIA certificate #[id number]. Result Comment: [email or web address] Performed By: #### L [id number] ####[facility] ([employer])[address] [place] [address] POTASSIUMon 06-29-2023 Potassium [Moles/Vol] 4.3 mmol/L Normal 3.5-5.1 [facility] Comment on above: Performed By: #### L [id number] ####[facility] ([facility])[address] [place] [address] PROTIME-INRon 06-29-2023 INR IN PPP BY COAGULATION ASSAY 1.13 High 0.90-1.10 [facility] Comment on above: Result Comment: ACCC P [...] CHEST 1995;108:231S-246S. Performed By: #### L [id number] ####[facility] ([facility])[address] [place] [address] PROTHROMBIN TIME (PT) IN PPP BY COAGULATION ASSAY 14.5 Seconds Normal 12.3-14.8 [facility] Comment on above: Performed By: #### L [id number] ####[facility] ([facility])[address] [place] [address] 30on 06-28-2023 30 Normal [facility] ANTI-XA (HEPARIN LEVEL)on HEPARIN UNFRACTIONATED (U/ML) IN PPP BY CHROMOGENIC METHOD 0.25 IU/mL Low 0.3-0.7 [facility] Comment on above: Result Comment: [place] roxaban and Apixaban will interfere with the anti Xa assay used to monitor UFH and LMWH. Performed By: #### L [id number] ####[facility] ([facility])[address] [place] [address] HEPARIN UNFRACTIONATED (U/ML) IN PPP BY CHROMOGENIC METHOD 0.16 IU/mL Invalid Interpretation Code 0.3-0.7 [facility] Comment on above: Result Comment: Sofy roxaban and Apixaban will interfere with the anti Xa assay used to monitor UFH and LMWH. Performed By: #### L [id number] ####[facility] ([facility])[address] [place] [address] HEPARIN UNFRACTIONATED (U/ML) IN PPP BY CHROMOGENIC METHOD <0.10 Invalid Interpretation Code 0.3-0.7 [facility] Comment on above: Order Comment: Check anti-Xa level every 6 hours while on heparin infusion, or per protocol. Result Comment: [place] roxaban and Apixaban will interfere with the anti Xa assay used to monitor UFH and LMWH. Performed By: #### L [id number] ####[facility] ([facility])[address] [place] [address] APTTon 06-28-2023 ACTIVATED PARTIAL THROMBOPLASTIN TIME IN PPP BY COAGULATION ASSAY 31.5 Seconds Normal 25.0-35.0 [facility] Comment on above: Order Comment: Basel ine aPTT before initiating heparin infusion. Result Comment: Clin ical significance of the APTT is questionable in the presence of heparin. Performed By: #### L [id number] ####[facility] ([facility])[address] [place] [address] BASIC METABOLIC PANELon 05-31 Anion gap [Moles/Vol] 14 mmol/L Normal 7-20 [facility] Comment on above: Performed By: #### L [id number] ####[facility] ([facility])[address] [place] [address] Calcium [Mass/Vol] 8.1 mg/dL Low 8.6-10.[address] [facility] Comment on above: Performed By: #### L [id number] ####[facility] ([facility])[address] [place] [address] Chloride [Moles/Vol] 95 mmol/L Low 98-107 [facility] Comment on above: Performed By: #### L [id number] ####[facility] ([facility])[address] [place] [address] CO2 [Moles/Vol] 25 mmol/L Normal 21-31 [facility] Comment on above: Performed By: #### L [id number] ####[facility] ([facility])[address] [place] [address] Creatinine [Mass/Vol] 0.69 mg/dL Low 0.70-1.30 [facility] Comment on above: Performed By: #### L [id number] ####[facility] ([facility])[address] [facility] [address] GLOMERULAR FILTRATION RATE ML/MIN/1.73 SQ M.PREDICTED 112.7 mL/min/1.73m*2 Normal >60.0 [facility] Comment on above: Result Comment: The [facility]???s estimated glomerular filtration rate (eGFR) will no [...] of individuals. Performed By: #### L [id number] ####[facility] ([facility])[address] [place] [address] Glucose [Mass/Vol] 103 mg/dL High 70-[address] [facility] Comment on above: Performed By: #### L [id number] ####[facility] ([facility])[address] [place] [address] Potassium [Moles/Vol] 3.9 mmol/L Normal 3.5-5.1 [facility] Comment on above: Performed By: #### L [id number] ####[facility] ([facility])[address] [place] [address] Sodium [Moles/Vol] 130 mmol/L Low 136-[address] [facility] Comment on above: Performed By: #### L [id number] ####[facility] ([facility])[address] [place] [address] Urea nitrogen [Mass/Vol] 10 mg/dL Normal 7-25 [facility] Comment on above: Performed By: #### L [id number] ####[facility] ([facility])[address] [place] [address] UREA NITROGEN/CREATININE (MASS RATIO) IN SER/PLAS 14.5 Normal [facility] Comment on above: Performed By: #### L [id number] ####[facility] ([facility])[address] [place] [address] Anion gap [Moles/Vol] 8 mmol/L Normal 7-20 [facility] Comment on above: Performed By: #### L [id number] ####[facility] ([facility])[address] [place] [address] Calcium [Mass/Vol] 8.1 mg/dL Low 8.6-10.[address] [facility] Comment on above: Performed By: #### L [id number] ####[facility] ([facility])[address] [place] [address] Chloride [Moles/Vol] 98 mmol/L Normal 98-107 [facility] Comment on above: Performed By: #### L [id number] ####[facility] ([facility])[address] [place] [address] CO2 [Moles/Vol] 29 mmol/L Normal 21-31 [facility] Comment on above: Performed By: #### L [id number] ####[facility] ([facility])[address] [place] [address] Creatinine [Mass/Vol] 0.73 mg/dL Normal 0.70-1.30 [facility] Comment on above: Performed By: #### L [id number] ####[facility] ([facility])[address] [place] [address] GLOMERULAR FILTRATION RATE ML/MIN/1.73 SQ M.PREDICTED 110.8 mL/min/1.73m*2 Normal >60.0 [facility] Comment on above: Result Comment: The [facility]???s estimated glomerular filtration rate (eGFR) will no [...] of individuals. Performed By: #### L [id number] ####[facility] ([facility])[address] [place] [address] Glucose [Mass/Vol] 118 mg/dL High 70-[address] [facility] Comment on above: Performed By: #### L [id number] ####[facility] ([facility])[address] [place] [address] Potassium [Moles/Vol] 3.8 mmol/L Normal 3.5-5.1 [facility] Comment on above: Performed By: #### L [id number] ####[facility] ([facility])[address] [place] [address] Sodium [Moles/Vol] 131 mmol/L Low 136-[address] [facility] Comment on above: Performed By: #### L [id number] ####[facility] ([facility])[address] [place] [address] Urea nitrogen [Mass/Vol] 10 mg/dL Normal 7-25 [facility] Comment on above: Performed By: #### L [id number] ####[facility] ([facility])[address] [place] [address] UREA NITROGEN/CREATININE (MASS RATIO) IN SER/PLAS 13.7 Normal [facility] Comment on above: Performed By: #### L [id number] ####[facility] ([facility])[address] [place] [address] CBCon 06-28-2023 Erythrocyte distribution width (RBC) [Ratio] 15.6 % High 11.5-15.0 [facility] Comment on above: Performed By: #### L [id number] ####[facility] ([facility])[address] [place] [address] ERYTHROCYTE MEAN CORPUSCULAR HEMOGLOBIN CONCENTRATION (G/DL) BY AUTOMATED 33.8 g/dL Normal 32.0-35.0 [facility] Comment on above: Performed By: #### L [id number] ####[facility] ([facility])[address] [place] [address] Hematocrit (Bld) [Volume fraction] 20.4 % Low 39.0-55.0 [facility] Comment on above: Performed By: #### L [id number] ####[facility] ([facility])[address] [place] [address] Hemoglobin (Bld) [Mass/Vol] 6.9 g/dL Low 13.0-17.0 [facility] Comment on above: Performed By: #### L [id number] ####[facility] ([facility])[address] [place] [address] IMMATURE PLATELET FRACTION % 5.6 % Normal 0.8-6.3 [facility] Comment on above: Performed By: #### L [id number] ####[facility] ([facility])[address] [place] [address] MCH (RBC) [Entitic mass] 29.5 pg Normal 27.0-33.0 [facility] Comment on above: Performed By: #### L [id number] ####[facility] ([facility])[address] [place] [address] MCV (RBC) [Entitic vol] 87.2 fL Normal 82.0-98.0 [facility] Comment on above: Performed By: #### L [id number] ####[facility] ([facility])[address] [place] [address] PLATELETS (10*3/UL) IN BLOOD AUTOMATED COUNT 127 10*3/uL Low 150-400 [facility] Comment on above: Performed By: #### L [id number] ####[facility] ([facility])[address] [place] [address] RBC (Bld) [#/Vol] 2.34 10*6/uL Low 4.20-5.70 [facility] Comment on above: Performed By: #### L [id number] ####[facility] ([facility])[address] [place] [address] WBC (Bld) [#/Vol] 6.57 10*3/uL Normal 4.00-10.60 [facility] Comment on above: Performed By: #### L [id number] ####[facility] ([facility])[place] [address] CKon 06-28-2023 CREATINE KINASE (U/L) IN SER/PLAS 560.0 U/L High 30.0-223.0 [facility] Comment on above: Performed By: #### L [id number] ####[facility] ([facility])[address] [place] [address] CONSULTon 06-28-2023 CONSULT Normal [facility] MAGNESIUMon 06-28-2023 Magnesium [Mass/Vol] 1.9 mg/dL Normal 1.9-2.7 [facility] Comment on above: Performed By: #### L [id number] ####[facility] ([facility])[address] [place] [address] PLATELET COUNTon 06-28-2023 IMMATURE PLATELET FRACTION % 6.1 % Normal 0.8-6.3 [facility] Comment on above: Performed By: #### L [id number] ####[facility] ([facility])[address] [place] [address] PLATELETS (10*3/UL) IN BLOOD AUTOMATED COUNT 126 10*3/uL Low 150-400 [facility] Comment on above: Performed By: #### L [id number] ####[facility] ([facility])[address] [place] [address] POCT GLUCOSE METER UNSOLICIT ED RESULTSon 06-28-2023 Glucose [Mass/Vol] 95 mg/dL Normal 70-[address] [facility] Comment on above: Order Comment: Waive d Testing in the ED is performed under the ED CLIA certificate #[id number]. Result Comment: [email or web address] Performed By: #### L [id number] ####[facility] ([facility])[address] [place] [address] Glucose [Mass/Vol] 118 mg/dL High 70-[address] [facility] Comment on above: Order Comment: Waive d Testing in the ED is performed under the ED CLIA certificate #[id number]. Result Comment: [email or web address] Performed By: #### L [id number] ####[facility] ([facility])[address] [place] [address] Glucose [Mass/Vol] 111 mg/dL High 70-[address] [facility] Comment on above: Order Comment: Waive d Testing in the ED is performed under the ED CLIA certificate #[id number]. Result Comment: [email or web address] Performed By: #### L [id number] ####[facility] ([employer])[address] [place] [address] Glucose [Mass/Vol] 160 mg/dL High 70-[address] [facility] Comment on above: Order Comment: Waive d Testing in the ED is performed under the ED CLIA certificate #[id number]. Result Comment: [email or web address] Performed By: #### L [id number] ####[facility] ([employer])[address] [place] [address] PROTIME-INRon 06-28-2023 INR IN PPP BY COAGULATION ASSAY 1.16 High 0.90-1.10 [facility] Comment on above: Result Comment: ACCC P [...] CHEST 1995;108:231S-246S. Performed By: #### L [id number] ####[facility] [employer])[address] [place] [address] PROTHROMBIN TIME (PT) IN PPP BY COAGULATION ASSAY 14.8 Seconds Normal 12.3-14.8 [facility] Comment on above: Performed By: #### L [id number] ####[facility] [employer])[address] [place] [address] 30on 06-27-2023 30 Normal [facility] 30 Normal [facility] 30 Normal [facility] APTTon 06-27-2023 ACTIVATED PARTIAL THROMBOPLASTIN TIME IN PPP BY COAGULATION ASSAY 35.5 Seconds High 25.0-35.0 [facility] Comment on above: Result Comment: Clin ical significance of the APTT is questionable in the presence of heparin. Performed By: #### L [id number] ####[facility] [employer])[address] [place] [address] BASIC METABOLIC PANELon 03-2 Anion gap [Moles/Vol] 9 mmol/L Normal 7-20 [facility] Comment on above: Performed By: #### L [id number] ####[facility] ([facility])[address] [place] [address] Calcium [Mass/Vol] 8.3 mg/dL Low 8.6-10.[address] [facility] Comment on above: Performed By: #### L [id number] ####[facility] ([facility])[address] [place] [address] Chloride [Moles/Vol] 104 mmol/L Normal 98-107 [facility] Comment on above: Performed By: #### L [id number] ####[facility] ([facility])[address] [place] [address] CO2 [Moles/Vol] 26 mmol/L Normal 21-31 [facility] Comment on above: Performed By: #### L [id number] ####[facility] ([facility])[address] [place] [address] Creatinine [Mass/Vol] 0.78 mg/dL Normal 0.70-1.30 [facility] Comment on above: Performed By: #### L [id number] ####[facility] ([facility] [place] [address] GLOMERULAR FILTRATION RATE ML/MIN/1.73 SQ M.PREDICTED 108.6 mL/min/1.73m*2 Normal >60.0 [facility] Comment on above: Result Comment: The [facility]???s estimated glomerular filtration rate (eGFR) will no [...] of individuals. Performed By: #### L [id number] ####[facility] ([facility])[address] [place] [address] Glucose [Mass/Vol] 117 mg/dL High 70-[address] [facility] Comment on above: Performed By: #### L [id number] ####[facility] ([facility])[address] [place] [address] Potassium [Moles/Vol] 4.9 mmol/L Normal 3.5-5.1 [facility] Comment on above: Performed By: #### L [id number] ####[facility] ([facility])[address] [place] [address] Sodium [Moles/Vol] 134 mmol/L Low 136-[address] [facility] Comment on above: Performed By: #### L [id number] ####[facility] ([facility] [place] [address] Urea nitrogen [Mass/Vol] 10 mg/dL Normal 7-25 [facility] Comment on above: Performed By: #### L [id number] ####[facility] ([facility])[address] [place] [address] UREA NITROGEN/CREATININE (MASS RATIO) IN SER/PLAS 12.8 Normal [facility] Comment on above: Performed By: #### L [id number] ####[facility] ([facility])[address] [place] [address] CBCon 06-27-2023 Erythrocyte distribution width (RBC) [Ratio] 15.9 % High 11.5-15.0 [facility] Comment on above: Performed By: #### L [id number] ####[facility] ([facility])[address] [place] [address] ERYTHROCYTE MEAN CORPUSCULAR HEMOGLOBIN CONCENTRATION (G/DL) BY AUTOMATED 34.4 g/dL Normal 32.0-35.0 [facility] Comment on above: Performed By: #### L [id number] ####[facility] (BEAKER)[address] [place] [address] Hematocrit (Bld) [Volume fraction] 21.8 % Low 39.0-55.0 [facility] Comment on above: Performed By: #### L [id number] ####[facility] ([facility])[address] [place] [address] Hemoglobin (Bld) [Mass/Vol] 7.5 g/dL Low 13.0-17.0 [facility] Comment on above: Performed By: #### L [id number] ####[facility] ([facility])[address] [place] [address] IMMATURE PLATELET FRACTION % 4.8 % Normal 0.8-6.3 [facility] Comment on above: Performed By: #### L [id number] ####[facility] ([facility])[address] [place] [address] MCH (RBC) [Entitic mass] 30.2 pg Normal 27.0-33.0 [facility] Comment on above: Performed By: #### L [id number] ####[facility] ([facility])[address] [place] [address] MCV (RBC) [Entitic vol] 87.9 fL Normal 82.0-98.0 [facility] Comment on above: Performed By: #### L [id number] ####[facility] ([facility])[address] [place] [address] PLATELETS (10*3/UL) IN BLOOD AUTOMATED COUNT 116 10*3/uL Low 150-400 [facility] Comment on above: Performed By: #### L [id number] ####[facility] ([facility])[address] [place] [address] RBC (Bld) [#/Vol] 2.48 10*6/uL Low 4.20-5.70 [facility] Comment on above: Performed By: #### L [id number] ####[facility] ([facility])[address] [place] [address] WBC (Bld) [#/Vol] 5.34 10*3/uL Normal 4.00-10.60 [facility] Comment on above: Performed By: #### L [id number] ####[facility] ([facility])[address] [place] [address] CONSULTon 06-27-2023 CONSULT Normal [facility] MAGNESIUMon 06-27-2023 Magnesium [Mass/Vol] 2.0 mg/dL Normal 1.9-2.7 [facility] Comment on above: Performed By: #### L [id number] ####[facility] ([facility])[address] [place] [address] PHOSPHORUSon 06-27-2023 Magnesium [Mass/Vol] 4.2 mg/dL Normal 2.5-5.0 [facility] Comment on above: Performed By: #### L [id number] ####[facility] ([facility])[address] [place] [address] POCT GLUCOSE METER UNSOLICIT ED RESULTSon 06-27-2023 Glucose [Mass/Vol] 154 mg/dL High 70-[address] [facility] Comment on above: Order Comment: Waive d Testing in the ED is performed under the ED CLIA certificate #[id number]. Result Comment: mer jha Performed By: #### L [id number] ####[facility] ([facility])[address] [place] [address] Glucose [Mass/Vol] 114 mg/dL High 70-[address] [facility] Comment on above: Order Comment: Waive d Testing in the ED is performed under the ED CLIA certificate #[id number]. Result Comment: mer jha Performed By: #### L [id number] ####[facility] (BEAKER)[address] [place] [address] Glucose [Mass/Vol] 108 mg/dL High 70-[address] [facility] Comment on above: Order Comment: Waive d Testing in the ED is performed under the ED CLIA certificate #[id number]. Result Comment: mer jha Performed By: #### L [id number] ####[facility] ([facility])[address] [place] [address] Glucose [Mass/Vol] 112 mg/dL High 70-[address] [facility] Comment on above: Order Comment: Waive d Testing in the ED is performed under the ED CLIA certificate #[id number]. Result Comment: mmcc gabo Performed By: #### L [id number] ####[facility] (BEAKER)[address] [place] [address] Glucose [Mass/Vol] 111 mg/dL High 70-[address] [facility] Comment on above: Order Comment: Waive d Testing in the ED is performed under the ED CLIA certificate #[id number]. Result Comment: mmcc gabo Performed By: #### L [id number] ####[facility] ([facility])[address] [place] [address] Glucose [Mass/Vol] 120 mg/dL High 70-[address] [facility] Comment on above: Order Comment: Waive d Testing in the ED is performed under the ED CLIA certificate #[id number]. Result Comment: mmcc gabo Performed By: #### L [id number] ####[facility] (BEAKER)[address] [place] [address] Glucose [Mass/Vol] 128 mg/dL High 70-[address] [facility] Comment on above: Order Comment: Waive d Testing in the ED is performed under the ED CLIA certificate #[id number]. Result Comment: mmcc gabo Performed By: #### L [id number] ####[facility] ([facility]ER)[address] [place] [address] Glucose [Mass/Vol] 132 mg/dL High 70-[address] [facility] Comment on above: Order Comment: Waive d Testing in the ED is performed under the ED CLIA certificate #[id number]. Result Comment: mmcc gabo Performed By: #### L [id number] ####[facility] (BEAKER)[address] [place] [address] PROTIME-INRon 06-27-2023 INR IN PPP BY COAGULATION ASSAY 1.30 High 0.90-1.10 [facility] Comment on above: Order Comment: On ar [...] CHEST 1995;[id number]. Performed By: #### L [id number] ####[facility])[address] [place] [address] PROTHROMBIN TIME (PT) IN PPP BY COAGULATION ASSAY 16.3 Seconds High 12.3-14.8 [facility] Comment on above: Order Comment: On ar rival to SICU Performed By: #### L [id number] ####[facility] [employer])[address] [place] [address] 30on 06-26-2023 30 Normal [facility] 30 Normal [facility] ANESon 06-26-2023 ANES Normal [facility] APTTon 06-26-2023 ACTIVATED PARTIAL THROMBOPLASTIN TIME IN PPP BY COAGULATION ASSAY 30.1 Seconds Normal 25.0-35.0 [facility] Comment on above: Result Comment: Clin ical significance of the APTT is questionable in the presence of heparin. Performed By: #### L [id number] ####[facility] [employer])[address] [facility] [place] [address] ACTIVATED PARTIAL THROMBOPLASTIN TIME IN PPP BY COAGULATION ASSAY 29.1 Seconds Normal 25.0-35.0 [facility] Comment on above: Order Comment: Pre-o p diagnosis:Aortic valve disorder [I35.9] Result Comment: Clin ical significance of the APTT is questionable in the presence of heparin. Performed By: #### L [id number] ####[facility] ([facility])[address] [place] [address] ACTIVATED PARTIAL THROMBOPLASTIN TIME IN PPP BY COAGULATION ASSAY 31.8 Seconds Normal 25.0-35.0 [facility] Comment on above: Result Comment: Clin ical significance of the APTT is questionable in the presence of heparin. Performed By: #### L [id number] ####[facility] ([facility])[address] [place] [address] ARTERIAL BLOOD GAS WITH IONI BesstechD CALCIUMon 06-26-2023 Base excess Calc (Bld) [Moles/Vol] -3.3000 mmol/L Low -2.0-3.0 [facility] Comment on above: Performed By: #### L [id number] ####[facility] [id number] [place] [address] [facility] CALCIUM IONIZED (MMOL/L) IN BLOOD 1.09 mmol/L Low 1.15-1.33 [facility] Comment on above: Performed By: #### L [id number] ####[facility] [id number] [place] [address] [place] CO2 (Bld) [Partial pressure] 35 mm[Hg] Normal 35-48 [facility] Comment on above: Performed By: #### L [id number] ####[facility] [id number] [place] [address] [place] FIO2 40 % Normal [facility] Comment on above: Performed By: #### L [id number] ####[facility] [id number] [place] [address] [place] HCO3 (Bld) [Moles/Vol] 21.2 mmol/L Normal 21.0-28.0 [facility] Comment on above: Performed By: #### L [id number] ####[facility] [id number] [place] [address] [facility] Oxygen (Bld) [Partial pressure] 118 mm[Hg] High 83-100 [facility] Comment on above: Performed By: #### L [id number] ####[facility] [id number] [place] [address] [facility] OXYGEN SATURATION (%) IN ARTERIAL BLOOD 98.8 % High 94.0-98.0 [facility] Comment on above: Performed By: #### L [id number] ####[facility] [id number] [place] [address] [place] PEEP 6 cmH2O Normal [facility] Comment on above: Performed By: #### L [id number] ####[facility] [id number] [place] [address] [facility] pH (Bld) 7.39 [pH] Normal 7.35-7.45 [facility] Comment on above: Performed By: #### L [id number] ####[facility] [id number] [place] [address] [facility] PRESSURE SUPPORT 12 Normal [facility] Comment on above: Performed By: #### L [id number] ####[facility] [id number] [place] [address] [facility] SOURCE OF OXYGEN Bi-PAP Normal [facility] Comment on above: Performed By: #### L [id number] ####[facility] [id number] [place] [address] [facility] Base excess Calc (Bld) [Moles/Vol] -5.8000 mmol/L Low -2.0-3.0 [facility] Comment on above: Performed By: #### L [id number] ####[facility] [id number] [place] [address] [facility] CALCIUM IONIZED (MMOL/L) IN BLOOD 1.19 mmol/L Normal 1.15-1.33 [facility] Comment on above: Performed By: #### L [id number] ####[facility] [id number] [place], [place] [address] CO2 (Bld) [Partial pressure] 44 mm[Hg] Normal 35-48 [facility] Comment on above: Performed By: #### L [id number] ####[facility] [id number] [place], [place] [address] FIO2 40 % Normal [facility] Comment on above: Performed By: #### L [id number] ####[facility] [id number] [place], [place] [address] HCO3 (Bld) [Moles/Vol] 20.7 mmol/L Low 21.0-28.0 [facility] Comment on above: Performed By: #### L [id number] ####[facility] [id number] Oxygen (Bld) [Partial pressure] 102 mm[Hg] High 83-100 [facility] Comment on above: Performed By: #### L [id number] ####[facility] [id number] [address] OXYGEN SATURATION (%) IN ARTERIAL BLOOD 99.5 % High 94.0-98.0 [facility] Comment on above: Performed By: #### L [id number] ####[facility] [id number] [address] PEEP 6 cmH2O Normal [facility] Comment on above: Performed By: #### L [id number] ####[facility] [id number] [place] [address] [facility] pH (Bld) 7.28 [pH] Low 7.35-7.45 [facility] Comment on above: Performed By: #### L [id number] ####[facility] [id number] [place] [address] [facility] PRESSURE SUPPORT 12 Normal [facility] Comment on above: Performed By: #### L [id number] ####[facility] [id number] [address] SOURCE OF OXYGEN Bi-PAP Normal [facility] Comment on above: Performed By: #### L [id number] ####[facility] [id number] [place] [address] [place] BASIC METABOLIC PANELon 03- Anion gap [Moles/Vol] 10 mmol/L Normal 7-20 [facility] Comment on above: Performed By: #### L [id number] ####[facility] (BEAKER)[address] [place] [address] Calcium [Mass/Vol] 8.1 mg/dL Low 8.6-10.[address] [facility] Comment on above: Performed By: #### L [id number] ####[facility] ([facility])[address] [place] [address] Chloride [Moles/Vol] 108 mmol/L High 98-107 [facility] Comment on above: Performed By: #### L [id number] ####[facility] (BEAKER)[address] [place] [address] CO2 [Moles/Vol] 24 mmol/L Normal 21- [facility] Comment on above: Performed By: #### L [id number] ####[facility] (BEAKER)[address] [place] [address] Creatinine [Mass/Vol] 0.72 mg/dL Normal 0.70-1.30 [facility] Comment on above: Performed By: #### L [id number] ####[facility] ([facility])[address] [place] [address] GLOMERULAR FILTRATION RATE ML/MIN/1.73 SQ M.PREDICTED 111.3 mL/min/1.73m*2 Normal >60.0 [facility] Comment on above: Result Comment: The [facility]???s estimated glomerular filtration rate (eGFR) will no [...] of individuals. Performed By: #### L [id number] ####[facility] ([facility])[address] [place] [address] Glucose [Mass/Vol] 151 mg/dL High 70-[address] [facility] Comment on above: Performed By: #### L [id number] ####[facility] ([facility])[address] [place] [address] Potassium [Moles/Vol] 4.1 mmol/L Normal 3.5-5.1 [facility] Comment on above: Performed By: #### L [id number] ####[facility] ([facility])[address] [place] [address] Sodium [Moles/Vol] 138 mmol/L Normal 136-[address] [facility] Comment on above: Performed By: #### L [id number] ####[facility] ([facility])[address] [place] [address] Urea nitrogen [Mass/Vol] 11 mg/dL Normal 7-25 [facility] Comment on above: Performed By: #### L [id number] ####[facility] ([facility])[address] [place] [address] UREA NITROGEN/CREATININE (MASS RATIO) IN SER/PLAS 15.3 Normal [facility] Comment on above: Performed By: #### L [id number] ####[facility] ([facility])[address] [place] [address] Anion gap [Moles/Vol] 14 mmol/L Normal 7-20 [facility] Comment on above: Order Comment: Pre-o p diagnosis:Aortic valve disorder [I35.9] Performed By: #### L [id number] ####[facility] ([facility])[address] [place] [address] Calcium [Mass/Vol] 7.9 mg/dL Low 8.6-10.[address] [facility] Comment on above: Order Comment: Pre-o p diagnosis:Aortic valve disorder [I35.9] Performed By: #### L [id number] ####[facility] (BEAKER)[address] [facility] [address] Chloride [Moles/Vol] 107 mmol/L Normal 98-107 [facility] Comment on above: Order Comment: Pre-o p diagnosis:Aortic valve disorder [I35.9] Performed By: #### L [id number] ####[facility] (BEAKER)[address] [facility] [place] [address] CO2 [Moles/Vol] 21 mmol/L Normal 21-31 [facility] Comment on above: Order Comment: Pre-o p diagnosis:Aortic valve disorder [I35.9] Performed By: #### L [id number] ####[facility] ([facility])[address] [place] [address] Creatinine [Mass/Vol] 0.76 mg/dL Normal 0.70-1.30 [facility] Comment on above: Order Comment: Pre-o p diagnosis:Aortic valve disorder [I35.9] Performed By: #### L [id number] ####[facility] ([facility])[address] [place] [address] GLOMERULAR FILTRATION RATE ML/MIN/1.73 SQ M.PREDICTED 109.5 mL/min/1.73m*2 Normal >60.0 [facility] Comment on above: Order Comment: Pre-o p diagnosis:Aortic valve disorder [I35.9] Result Comment: The [facility]???s estimated glomerular filtration rate (eGFR) will no [...] of individuals. Performed By: #### L [id number] ####[facility] (BEAKER)[address] [place] [address] Glucose [Mass/Vol] 194 mg/dL High 70-[address] [facility] Comment on above: Order Comment: Pre-o p diagnosis:Aortic valve disorder [I35.9] Performed By: #### L [id number] ####[facility] ([facility])[address] [place] [address] Potassium [Moles/Vol] 3.9 mmol/L Normal 3.5-5.1 [facility] Comment on above: Order Comment: Pre-o p diagnosis:Aortic valve disorder [I35.9] Performed By: #### L [id number] ####[facility] ([facility])[address] [place] [address] Sodium [Moles/Vol] 138 mmol/L Normal 136-[address] [facility] Comment on above: Order Comment: Pre-o p diagnosis:Aortic valve disorder [I35.9] Performed By: #### L [id number] ####[facility] ([facility])[address] [place] [address] Urea nitrogen [Mass/Vol] 11 mg/dL Normal 7-25 [facility] Comment on above: Order Comment: Pre-o p diagnosis:Aortic valve disorder [I35.9] Performed By: #### L [id number] ####[facility] ([facility])[address] [place] [address] UREA NITROGEN/CREATININE (MASS RATIO) IN SER/PLAS 14.5 Normal [facility] Comment on above: Order Comment: Pre-o p diagnosis:Aortic valve disorder [I35.9] Performed By: #### L [id number] ####[facility] ([facility])[address] [place] [address] CBCon 06-26-2023 Erythrocyte distribution width (RBC) [Ratio] 15.5 % High 11.5-15.0 [facility] Comment on above: Performed By: #### L [id number] ####[facility] ([facility])[address] [place] [address] ERYTHROCYTE MEAN CORPUSCULAR HEMOGLOBIN CONCENTRATION (G/DL) BY AUTOMATED 34.0 g/dL Normal 32.0-35.0 [facility] Comment on above: Performed By: #### L [id number] ####[facility] ([facility])[address] [place] [address] Hematocrit (Bld) [Volume fraction] 29.4 % Low 39.0-55.0 [facility] Comment on above: Performed By: #### L [id number] ####[facility] ([facility])[address] [place] [address] Hemoglobin (Bld) [Mass/Vol] 10.0 g/dL Low 13.0-17.0 [facility] Comment on above: Performed By: #### L [id number] ####[facility] ([facility])[address] [place] [address] IMMATURE PLATELET FRACTION % 3.8 % Normal 0.8-6.3 [facility] Comment on above: Performed By: #### L [id number] ####[facility] ([facility])[address] [place] [address] MCH (RBC) [Entitic mass] 29.6 pg Normal 27.0-33.0 [facility] Comment on above: Performed By: #### L [id number] ####[facility] ([facility])[address] [place] [address] MCV (RBC) [Entitic vol] 87.0 fL Normal 82.0-98.0 [facility] Comment on above: Performed By: #### L [id number] ####[facility] ([facility])[address] [place] [address] PLATELETS (10*3/UL) IN BLOOD AUTOMATED COUNT 108 10*3/uL Low 150-400 [facility] Comment on above: Performed By: #### L [id number] ####[facility] (BEAKER)[address] [place] [address] RBC (Bld) [#/Vol] 3.38 10*6/uL Low 4.20-5.70 [facility] Comment on above: Performed By: #### L [id number] ####[facility] ([facility])[address] [place] [address] WBC (Bld) [#/Vol] 6.87 10*3/uL Normal 4.00-10.60 [facility] Comment on above: Performed By: #### L [id number] ####[facility] ([facility])[address] [place] [address] Erythrocyte distribution width (RBC) [Ratio] 15.3 % High 11.5-15.0 [facility] Comment on above: Order Comment: Pre-o p diagnosis:Aortic valve disorder [I35.9] Performed By: #### L [id number] ####[facility] ([facility])[address] [place] [address] ERYTHROCYTE MEAN CORPUSCULAR HEMOGLOBIN CONCENTRATION (G/DL) BY AUTOMATED 34.5 g/dL Normal 32.0-35.0 [facility] Comment on above: Order Comment: Pre-o p diagnosis:Aortic valve disorder [I35.9] Performed By: #### L [id number] ####[facility] ([facility])[address] [place] [address] Hematocrit (Bld) [Volume fraction] 29.3 % Low 39.0-55.0 [facility] Comment on above: Order Comment: Pre-o p diagnosis:Aortic valve disorder [I35.9] Performed By: #### L [id number] ####[facility] ([facility])[address] [place] [address] Hemoglobin (Bld) [Mass/Vol] 10.1 g/dL Low 13.0-17.0 [facility] Comment on above: Order Comment: Pre-o p diagnosis:Aortic valve disorder [I35.9] Performed By: #### L [id number] ####[facility] ([facility])[address] [place] [address] IMMATURE PLATELET FRACTION % 4.1 % Normal 0.8-6.3 [facility] Comment on above: Order Comment: Pre-o p diagnosis:Aortic valve disorder [I35.9] Performed By: #### L [id number] ####[facility] ([facility])[address] [place] [address] MCH (RBC) [Entitic mass] 29.9 pg Normal 27.0-33.0 [facility] Comment on above: Order Comment: Pre-o p diagnosis:Aortic valve disorder [I35.9] Performed By: #### L [id number] ####[facility] ([facility])[address] [place] [address] MCV (RBC) [Entitic vol] 86.7 fL Normal 82.0-98.0 [facility] Comment on above: Order Comment: Pre-o p diagnosis:Aortic valve disorder [I35.9] Performed By: #### L [id number] ####[facility] ([facility])[address] [place] [address] PLATELETS (10*3/UL) IN BLOOD AUTOMATED COUNT 135 10*3/uL Low 150-400 [facility] Comment on above: Order Comment: Pre-o p diagnosis:Aortic valve disorder [I35.9] Performed By: #### L [id number] ####[facility] ([facility])[address] [place] [address] RBC (Bld) [#/Vol] 3.38 10*6/uL Low 4.20-5.70 [facility] Comment on above: Order Comment: Pre-o p diagnosis:Aortic valve disorder [I35.9] Performed By: #### L [id number] ####[facility] ([facility])[address] [place] [address] WBC (Bld) [#/Vol] 9.24 10*3/uL Normal 4.00-10.60 [facility] Comment on above: Order Comment: Pre-o p diagnosis:Aortic valve disorder [I35.9] Performed By: #### L [id number] ####[facility] ([facility])[address] [place] [address] CBC WITH AUTO DIFFERENTIALon 03-27-2024 Basophils (Bld) [#/Vol] 0.04 10*3/uL Normal 0.00-0.20 [facility] Comment on above: Performed By: #### L [id number] ####[facility] ([facility])[address] [place] [address] Basophils/100 WBC (Bld) 0.8 % Normal 0.0-1.0 [facility] Comment on above: Performed By: #### L [id number] ####[facility] ([facility])[address] [place] [address] Eosinophils (Bld) [#/Vol] 0.28 10*3/uL Normal 0.00-0.50 [facility] Comment on above: Performed By: #### L [id number] ####[facility] ([facility])[address] [place] [address] Eosinophils/100 WBC (Bld) 5.9 % Normal 0.0-6.0 [facility] Comment on above: Performed By: #### L [id number] ####[facility] (BEAKER)[address] [place] [address] Erythrocyte distribution width (RBC) [Ratio] 15.9 % High 11.5-15.0 [facility] Comment on above: Performed By: #### L [id number] ####[facility] (BEAKER)[address] [place] [address] ERYTHROCYTE MEAN CORPUSCULAR HEMOGLOBIN CONCENTRATION (G/DL) BY AUTOMATED 33.7 g/dL Normal 32.0-35.0 [facility] Comment on above: Performed By: #### L [id number] ####[facility] (BEAKER)[address] [place] [address] Hematocrit (Bld) [Volume fraction] 32.6 % Low 39.0-55.0 [facility] Comment on above: Performed By: #### L [id number] ####[facility] (BEAKER)[address] [place] [address] Hemoglobin (Bld) [Mass/Vol] 11.0 g/dL Low 13.0-17.0 [facility] Comment on above: Performed By: #### L [id number] ####[facility] ([facility])[address] [place] [address] Immature granulocytes (Bld) [#/Vol] 0.01 10*3/uL Normal 0.00-0.20 [facility] Comment on above: Performed By: #### L [id number] ####[facility] ([facility])[address] [place] [address] Immature granulocytes/100 WBC (Bld) 0.2 % Normal 0.0-1.0 [facility] Comment on above: Performed By: #### L [id number] ####[facility] ([facility])[address] [place] [address] Lymphocytes (Bld) [#/Vol] 0.86 10*3/uL Low 1.20-4.00 [facility] Comment on above: Performed By: #### L [id number] ####[facility] ([facility])[address] [place] [address] Lymphocytes/100 WBC (Bld) 18.3 % Low 20.0-45.0 [facility] Comment on above: Performed By: #### L [id number] ####[facility] ([facility])[address] [place] [address] MCH (RBC) [Entitic mass] 29.4 pg Normal 27.0-33.0 [facility] Comment on above: Performed By: #### L [id number] ####[facility] ([facility])[address] [place] [address] MCV (RBC) [Entitic vol] 87.2 fL Normal 82.0-98.0 [facility] Comment on above: Performed By: #### L [id number] ####[facility] (BEAKER)[address] [place] [address] Monocytes (Bld) [#/Vol] 0.50 10*3/uL Normal 0.10-1.00 [facility] Comment on above: Performed By: #### L [id number] ####[facility] ([facility])[address] [address] Monocytes/100 WBC (Bld) 10.6 % Normal 5.0-12.0 [facility] Comment on above: Performed By: #### L [id number] ####[facility] ([facility])[address] [address] Neutrophils (Bld) [#/Vol] 3.02 10*3/uL Normal 1.60-7.60 [facility] Comment on above: Performed By: #### L [id number] ####[facility] ([facility])[address] [address] Neutrophils/100 WBC (Bld) 64.2 % Normal 40.0-72.0 [facility] Comment on above: Performed By: #### L [id number] ####[facility] ([facility])[address] [address] NRBC (PER 100 WBCS) BY AUTOMATED COUNT 0.0 % Normal 0 [facility] Comment on above: Performed By: #### L [id number] ####[facility] ([facility])[address] [address] PLATELETS (10*3/UL) IN BLOOD AUTOMATED COUNT 159 10*3/uL Normal 150-400 [facility] Comment on above: Performed By: #### L [id number] ####[facility] ([facility])[address] [address] RBC (Bld) [#/Vol] 3.74 10*6/uL Low 4.20-5.70 [facility] Comment on above: Performed By: #### L [id number] ####[facility] ([facility])[address] [place], [place] [address] WBC (Bld) [#/Vol] 4.71 10*3/uL Normal 4.00-10.60 [facility] Comment on above: Performed By: #### L [id number] ####[facility] (BEAKER)[address] [place] [address] CO-OXIMETRYon 06-26-2023 CARBOXYHEMOGLOBIN/HE MOGLOBIN TOTAL % IN BLOOD 2.3 % Normal [facility] Comment on above: Performed By: #### L [id number] ####[facility] [id number] [place] [address] [place] Hemoglobin (Bld) [Mass/Vol] 9.5 g/dL Normal [facility] Comment on above: Performed By: #### L [id number] ####[facility] [id number] [place] [address] [place] METHEMOGLOBIN/100 IN BLOOD 0.5 % Normal 0.0-1.5 [facility] Comment on above: Performed By: #### L [id number] ####[facility] [id number] [place] [address] [place] Oxygen saturation in Blood 61.9 % Normal [facility] Comment on above: Performed By: #### L [id number] ####[facility] [id number] [place] [address] [place] OXYGENATED HEMOGLOBIN IN BLOOD 60.2 % Normal [facility] Comment on above: Performed By: #### L [id number] ####[facility] [id number] [place] [address] [place] COMPREHENSIVE METABOLIC PANE Braulio 06-26-2023 Albumin [Mass/Vol] 4.1 g/dL Normal 3.5-5.[address] [facility] Comment on above: Performed By: #### L [id number] ####[facility] (BEAKER)[address] [place] [address] ALP [Catalytic activity/Vol] 51 U/L Normal 34-104 [facility] Comment on above: Performed By: #### L [id number] ####[facility] (BEAKER)[address] [place] [address] ALT [Catalytic activity/Vol] 13 U/L Normal 7-52 [facility] Comment on above: Performed By: #### L [id number] ####[facility] (BEAKER)[address] [place] [address] Anion gap [Moles/Vol] 10 mmol/L Normal 7-20 [facility] Comment on above: Performed By: #### L [id number] ####[facility] (BEAKER)[address] [place] [address] AST [Catalytic activity/Vol] 12 U/L Low 13-39 [facility] Comment on above: Performed By: #### L [id number] ####[facility] (BEAKER)[address] [place] [address] Bilirubin [Mass/Vol] 0.9 mg/dL Normal 0.3-1.0 [facility] Comment on above: Performed By: #### L [id number] ####[facility] ([facility])[address] [place] [address] Calcium [Mass/Vol] 8.6 mg/dL Normal 8.6-10.[address] [facility] Comment on above: Performed By: #### L [id number] ####[facility] (BEAKER)[address] [place] [address] Chloride [Moles/Vol] 104 mmol/L Normal 98-107 [facility] Comment on above: Performed By: #### L [id number] ####[facility] (BEAKER)[address] [place] [address] CO2 [Moles/Vol] 26 mmol/L Normal 21-31 [facility] Comment on above: Performed By: #### L [id number] ####[facility] (BEAKER)[address] [place] [address] Creatinine [Mass/Vol] 0.82 mg/dL Normal 0.70-1.30 [facility] Comment on above: Performed By: #### L [id number] ####[facility] (BEAKER)[address] [place] [address] GLOMERULAR FILTRATION RATE ML/MIN/1.73 SQ M.PREDICTED 107.0 mL/min/1.73m*2 Normal >60.0 [facility] Comment on above: Result Comment: The [facility]???s estimated glomerular filtration rate (eGFR) will no [...] of individuals. Performed By: #### L [id number] ####[facility] ([facility])[address] [facility] [address] Glucose [Mass/Vol] 97 mg/dL Normal 70-[address] [facility] Comment on above: Performed By: #### L [id number] ####[facility] ([facility])[address] [place] [address] Potassium [Moles/Vol] 4.0 mmol/L Normal 3.5-5.1 [facility] Comment on above: Performed By: #### L [id number] ####[facility] ([facility])[address] [place] [address] Protein [Mass/Vol] 6.0 g/dL Normal 6.0-8.[address] [facility] Comment on above: Performed By: #### L [id number] ####[facility] ([facility])[address] [place] [address] Sodium [Moles/Vol] 136 mmol/L Normal 136-[address] [facility] Comment on above: Performed By: #### L [id number] ####[facility] (BEAKER)[address] [place] [address] Urea nitrogen [Mass/Vol] 12 mg/dL Normal 7-25 [facility] Comment on above: Performed By: #### L [id number] ####[facility] (BEAKER)[address] [place] [address] UREA NITROGEN/CREATININE (MASS RATIO) IN SER/PLAS 14.6 Normal [facility] Comment on above: Performed By: #### L [id number] ####[facility] ([facility])[address] [place] [address] CONSULTon 06-26-2023 CONSULT Normal [facility] DEVICE CULTUREon 06-26-2023 Bacteria identified Cx Nom (Unsp spec) No growth at 3 days Normal [facility] Comment on above: Order Comment: RIGHT ARM PICC LINE CULTURE Performed By: #### D EVICE CULTURE ####[facility] ([facility])[address] [place] [address] FIBRINOGENon 06-26-2023 Magnesium [Mass/Vol] 402 mg/dL Normal 150-425 [facility] Comment on above: Order Comment: Pre-o p diagnosis:Aortic valve disorder [I35.9] Performed By: #### L [id number] ####[facility] ([facility])[address] [place] [address] HISTOLOGY - TISSUE EXAMon LAB AP CASE REPORT Normal [facility] Comment on above: Order Comment: Pre-o p diagnosis:Aortic valve disorder [I35.9] Result Comment: Surg ical Pathology Case: [id number] Provider: Paul George MD Collected: 06/26/2023 115[address]Ordering Location: [facility] Main Operating Room Received: 06/26/2023 135[address]Pathologist: LILIA Prakashpecimen: Other, AORTIC VALVE LEAFLET FOR HISTOLOGY Performed By: #### L [id number] ####[facility] (BEAKER)[address] [place] [address] LAB AP CLINICAL INFORMATION Normal [facility] Comment on above: Order Comment: Pre-o p diagnosis:Aortic valve disorder [I35.9] Result Comment: Post -Op [id number] - Aortic valve disorder [ICD-10-CM] Performed By: #### L [id number] ####[facility] (BEAKER)[address] [place] [address] LAB AP GROSS DESCRIPTION A. Other. Normal [facility] Comment on above: Order Comment: Pre-o p [...] identified. The specimen is serially sectioned and field service representative sections are submitted in 1 cassette.Nai Sheth, Pathologists' Deck Lid Fitter Jaspreet Chawla Pathologists' Deck Lid Fitter Performed By: #### L [id number] ####[facility] ([facility])[address] [place] [address] LAB AP MICROSCOPIC DESCRIPTION Microscopic examination performed. Normal [facility] Comment on above: Order Comment: Pre-o p diagnosis:Aortic valve disorder [I35.9] Performed By: #### L [id number] ####[facility] ([facility])[address] [place] [address] LAB AP REPORT FINAL DIAGNOSIS NARRATIVE Normal [facility] Comment on above: Order Comment: Pre-o p diagnosis:Aortic valve disorder [I35.9] Result Comment: A. A ortic valve leaflet, removal:- Valvular tissue with fibrinoid necrosis and acute inflammation. Performed By: #### L [id number] ####[facility] ([facility])[address] [place] [address] LACTIC ACID WITH 4 HOUR REFL EXon 06-26-2023 LACTATE (MMOL/L) IN SER/PLAS 1.5 mmol/L Normal 0.5-2.2 [facility] Comment on above: Order Comment: Pre-o p diagnosis:Aortic valve disorder [I35.9] Performed By: #### L [id number] ####[facility] ([facility])[address] [place] [address] LACTATE (MMOL/L) IN SER/PLAS 3.1 mmol/L Critically high 0.5-2.2 [facility] Comment on above: Order Comment: Pre-o p diagnosis:Aortic valve disorder [I35.9] Performed By: #### L [id number] ####[facility] ([facility])[address] [place] [address] LACTIC ACID, PLASMAon 2023 LACTATE (MMOL/L) IN SER/PLAS 2.4 mmol/L High 0.5-2.2 [facility] Comment on above: Performed By: #### L [id number] ####[facility] ([facility])[address] [place] [address] MAGNESIUMon 06-26-2023 Magnesium [Mass/Vol] 2.4 mg/dL Normal 1.9-2.7 [facility] Comment on above: Performed By: #### L [id number] ####[facility] ([facility])[address] [place] [address] Magnesium [Mass/Vol] 2.6 mg/dL Normal 1.9-2.7 [facility] Comment on above: Order Comment: Pre-o p diagnosis:Aortic valve disorder [I35.9] Performed By: #### L [id number] ####[facility] ([facility])[address] [place] [address] Magnesium [Mass/Vol] 2.0 mg/dL Normal 1.9-2.7 [facility] Comment on above: Performed By: #### L [id number] ####[facility] ([facility])[address] [place] [address] OPNOTEon 06-26-2023 OPNOTE Normal [facility] PHOSPHORUSon 06-26-2023 Magnesium [Mass/Vol] 3.9 mg/dL Normal 2.5-5.0 [facility] Comment on above: Performed By: #### L [id number] ####[facility] (BEAKER)[address] [place] [address] Magnesium [Mass/Vol] 4.2 mg/dL Normal 2.5-5.0 [facility] Comment on above: Performed By: #### L [id number] ####[facility] (BEAKER)[address] [place] [address] POCT ACTIVATED CLOTTING TIME UNSOLICITED RESULTSon 06-26-2023 POC ACTIVATED CLOTTING TIME 143 sec Normal 82-152 [facility] Comment on above: Performed By: #### L [id number] ####[facility] (BEAKER)[address] [place] [address] POC ACTIVATED CLOTTING TIME 148 sec Normal 82-152 [facility] Comment on above: Performed By: #### L [id number] ####[facility] (BEAKER)[address] [place] [address] POC ACTIVATED CLOTTING TIME 473 sec High 82-152 [facility] Comment on above: Performed By: #### L [id number] ####[facility] (BEAKER)[address] [place] [address] POC ACTIVATED CLOTTING TIME 562 sec High 82-152 [facility] Comment on above: Performed By: #### L [id number] ####[facility] ([facility]AKER)[address] [place] [address] POC ACTIVATED CLOTTING TIME 602 sec High 82-152 [facility] Comment on above: Performed By: #### L [id number] ####[facility] (BEAKER)[address] [place] [address] POC ACTIVATED CLOTTING TIME 679 sec High 82-152 [facility] Comment on above: Performed By: #### L [id number] ####[facility] (BEAKER)[address] [place] [address] POC ACTIVATED CLOTTING TIME 772 sec High 82-152 [facility] Comment on above: Performed By: #### L [id number] ####[facility] (BEAKER)[address] [place] [address] POC ACTIVATED CLOTTING TIME 772 sec High 82-152 [facility] Comment on above: Performed By: #### L [id number] ####[facility] ([facility])[address] [place] [address] POC ACTIVATED CLOTTING TIME 701 sec High 82-152 [facility] Comment on above: Performed By: #### L [id number] ####[facility] ([facility])[address] [place] [address] POC ACTIVATED CLOTTING TIME 154 sec High 82-152 [facility] Comment on above: Performed By: #### L [id number] ####[facility] ([facility])[address] [place] [address] POCT GLUCOSE METER UNSOLICIT ED RESULTSon 06-26-2023 Glucose [Mass/Vol] 126 mg/dL High 70-[address] [facility] Comment on above: Order Comment: Waive d Testing in the ED is performed under the ED CLIA certificate #[id number]. Result Comment: mmcc gabo Performed By: #### L [id number] ####[facility] ([facility])[address] [place] [address] Glucose [Mass/Vol] 135 mg/dL High 70-[address] [facility] Comment on above: Order Comment: Waive d Testing in the ED is performed under the ED CLIA certificate #[id number]. Result Comment: pcar r Performed By: #### L [id number] ####[facility] ([facility])[address] [place] [address] Glucose [Mass/Vol] 131 mg/dL High 70-[address] [facility] Comment on above: Order Comment: Waive d Testing in the ED is performed under the ED CLIA certificate #[id number]. Result Comment: [email or web address] [email or web address] Performed By: #### L [id number] ####[facility] ([facility])[address] [place] [address] POCT PERFUSION PANEL UNSOLIC ITED RESULTSon 06-26-2023 CO2 [Moles/Vol] 22.0 mmol/L Normal 21.0-29.0 [facility] Comment on above: Performed By: #### L [id number] ####[facility] (BEAKER)[address] [address] Glucose [Mass/Vol] 197 mg/dL High 70-[address] [facility] Comment on above: Performed By: #### L [id number] ####[facility] (BEAKER)[address] [address] HCO3 (Bld) [Moles/Vol] 20.8 mmol/L Low 23.0-28.0 [facility] Comment on above: Performed By: #### L [id number] ####[facility] ([facility])[address] [address] Hematocrit (Bld) [Volume fraction] 30 % Low 38-51 [facility] Comment on above: Performed By: #### L [id number] ####[facility] (BEAKER)[address] [address] Hemoglobin (Bld) [Mass/Vol] 10.2 g/dL Low 12.0-17.0 [facility] Comment on above: Performed By: #### L [id number] ####[facility] (BEAKER)[address] [address] POCT BASE EXCESS -4.0 mmol/L Low -2.0-3.0 [facility] Comment on above: Performed By: #### L [id number] ####[facility] (BEAKER)[address] [address] POCT IONIZED CALCIUM 1.17 mmol/L Normal 1.12-1.32 [facility] Comment on above: Performed By: #### L [id number] ####[facility] (BEAKER)[address] [place] [address] POCT PCO2 36.5 mmHg Low 41.0-51.0 [facility] Comment on above: Performed By: #### L [id number] ####[facility] (BEAKER)[address] [place] [address] POCT PH 7.36 Normal 7.31-7.41 [facility] Comment on above: Performed By: #### L [id number] ####[facility] (BEAKER)[address] [place] [address] POCT PO2 240 mmHg High 80-105 [facility] Comment on above: Performed By: #### L [id number] ####[facility] ([facility])[address] [address] POCT SO2 100 % High 95-98 [facility] Comment on above: Performed By: #### L [id number] ####[facility] ([facility])[address] [place] [address] Potassium [Moles/Vol] 3.9 mmol/L Normal 3.5-4.9 [facility] Comment on above: Performed By: #### L [id number] ####[facility] ([facility])[address] [place] [address] Sodium [Moles/Vol] 139 mmol/L Normal 138.0-146.0 [facility] Comment on above: Performed By: #### L [id number] ####[facility] (BEAKER)[address] [place] [address] CO2 [Moles/Vol] 23.0 mmol/L Normal 21.0-29.0 [facility] Comment on above: Performed By: #### L [id number] ####[facility] (BEAKER)[address] [place] [address] Glucose [Mass/Vol] 208 mg/dL High 70-[address] [facility] Comment on above: Performed By: #### L [id number] ####[facility] (BEAKER)[address] [place] [address] HCO3 (Bld) [Moles/Vol] 21.6 mmol/L Low 23.0-28.0 [facility] Comment on above: Performed By: #### L [id number] ####[facility] (BEAKER)[address] [place] [address] Hematocrit (Bld) [Volume fraction] 28 % Low 38-51 [facility] Comment on above: Performed By: #### L [id number] ####[facility] (BEAKER)[address] [place] [address] Hemoglobin (Bld) [Mass/Vol] 9.5 g/dL Low 12.0-17.0 [facility] Comment on above: Performed By: #### L [id number] ####[facility] (BEAKER)[address] [place] [address] POCT BASE EXCESS -4.0 mmol/L Low -2.0-3.0 [facility] Comment on above: Performed By: #### L [id number] ####[facility] (BEAKER)[address] [place] [address] POCT IONIZED CALCIUM 1.22 mmol/L Normal 1.12-1.32 [facility] Comment on above: Performed By: #### L [id number] ####[facility] (BEAKER)[address] [place] [address] POCT PCO2 38.6 mmHg Low 41.0-51.0 [facility] Comment on above: Performed By: #### L [id number] ####[facility] (BEAKER)[address] [place] [address] POCT PH 7.36 Normal 7.31-7.41 [facility] Comment on above: Performed By: #### L [id number] ####[facility] (BEAKER)[address] [place] [address] POCT PO2 265 mmHg High 80-105 [facility] Comment on above: Performed By: #### L [id number] ####[facility] (BEAKER)[address] [place] [address] POCT SO2 100 % High 95-98 [facility] Comment on above: Performed By: #### L [id number] ####[facility] (BEAKER)[address] [place] [address] Potassium [Moles/Vol] 3.9 mmol/L Normal 3.5-4.9 [facility] Comment on above: Performed By: #### L [id number] ####[facility] (BEAKER)[address] [place] [address] Sodium [Moles/Vol] 137 mmol/L Low 138.0-146.0 [facility] Comment on above: Performed By: #### L [id number] ####[facility] (BEAKER)[address] [place] [address] CO2 [Moles/Vol] 25.0 mmol/L Normal 21.0-29.0 [facility] Comment on above: Performed By: #### L [id number] ####[facility] (BEAKER)[address] [place] [address] Glucose [Mass/Vol] 216 mg/dL High 70-[address] [facility] Comment on above: Performed By: #### L [id number] ####[facility] ([facility])[address] [place] [address] HCO3 (Bld) [Moles/Vol] 23.3 mmol/L Normal 23.0-28.0 [facility] Comment on above: Performed By: #### L [id number] ####[facility] ([facility])[address] [place] [address] Hematocrit (Bld) [Volume fraction] 28 % Low 38-51 [facility] Comment on above: Performed By: #### L [id number] ####[facility] ([facility])[address] [place] [address] Hemoglobin (Bld) [Mass/Vol] 9.5 g/dL Low 12.0-17.0 [facility] Comment on above: Performed By: #### L [id number] ####[facility] ([facility])[address] [place] [address] POCT BASE EXCESS -3.0 mmol/L Low -2.0-3.0 [facility] Comment on above: Performed By: #### L [id number] ####[facility] ([facility])[address] [place] [address] POCT IONIZED CALCIUM 1.29 mmol/L Normal 1.12-1.32 [facility] Comment on above: Performed By: #### L [id number] ####[facility] ([facility])[address] [address] POCT PCO2 46.6 mmHg Normal 41.0-51.0 [facility] Comment on above: Performed By: #### L [id number] ####[facility] [facility] (BEAKER)[address] [address] POCT PH 7.31 Normal 7.31-7.41 [facility] Comment on above: Performed By: #### L [id number] ####[facility] ([facility]AKER)[address] [address] POCT PO2 348 mmHg High 80-105 [facility] Comment on above: Performed By: #### L [id number] ####[facility] (BEAKER)[address] [address] POCT SO2 100 % High 95-98 [facility] Comment on above: Performed By: #### L [id number] ####[facility] (BEAKER)[address] [place] [address] Potassium [Moles/Vol] 4.7 mmol/L Normal 3.5-4.9 [facility] Comment on above: Performed By: #### L [id number] ####[facility] (BEAKER)[address] [place] [address] Sodium [Moles/Vol] 136 mmol/L Low 138.0-146.0 [facility] Comment on above: Performed By: #### L [id number] ####[facility] (BEAKER)[address] [place] [address] CO2 [Moles/Vol] 26.0 mmol/L Normal 21.0-29.0 [facility] Comment on above: Performed By: #### L [id number] ####[facility] ([facility] [address] Glucose [Mass/Vol] 173 mg/dL High 70-[address] [facility] Comment on above: Performed By: #### L [id number] ####[facility] ([facility])[address] [address] HCO3 (Bld) [Moles/Vol] 24.8 mmol/L Normal 23.0-28.0 [facility] Comment on above: Performed By: #### L [id number] ####[facility] ([facility])[address] [address] Hematocrit (Bld) [Volume fraction] 30 % Low 38-51 [facility] Comment on above: Performed By: #### L [id number] ####[facility] ([facility])[address] [place] [address] Hemoglobin (Bld) [Mass/Vol] 10.2 g/dL Low 12.0-17.0 [facility] Comment on above: Performed By: #### L [id number] ####[facility] ([facility])[address] [address] POCT BASE EXCESS 0.0 mmol/L Normal -2.0-3.0 [facility] Comment on above: Performed By: #### L [id number] ####[facility] ([facility])[address] [address] POCT IONIZED CALCIUM 1.57 mmol/L Critically high 1.12-1.32 [facility] Comment on above: Performed By: #### L [id number] ####[facility] (BEAKER)[address] [place] [address] POCT PCO2 40.5 mmHg Low 41.0-51.0 [facility] Comment on above: Performed By: #### L [id number] ####[facility] LAB (BEAKER)[address] [place], [place] [address] POCT PH 7.40 Normal 7.31-7.41 [facility] Comment on above: Performed By: #### L [id number] ####[facility] (BEAKER)[address] [address] POCT PO2 321 mmHg High 80-105 [facility] Comment on above: Performed By: #### L [id number] ####[facility] ([facility])[address] [address] POCT SO2 100 % High 95-98 [facility] Comment on above: Performed By: #### L [id number] ####[facility] ([facility])[address], [place] [address] Potassium [Moles/Vol] 5.4 mmol/L High 3.5-4.9 [facility] Comment on above: Performed By: #### L [id number] ####[facility] ([facility])[address] [place] [address] Sodium [Moles/Vol] 134 mmol/L Low 138.0-146.0 [facility] Comment on above: Performed By: #### L [id number] ####[facility] ([facility])[address] [address] CO2 [Moles/Vol] 25.0 mmol/L Normal 21.0-29.0 [facility] Comment on above: Performed By: #### L [id number] ####[facility] LAB (BEAKER)[address] [place] [address] Glucose [Mass/Vol] 171 mg/dL High 70-[address] [facility] Comment on above: Performed By: #### L [id number] ####[facility] (BEAKER)[address] [place] [address] HCO3 (Bld) [Moles/Vol] 23.6 mmol/L Normal 23.0-28.0 [facility] Comment on above: Performed By: #### L [id number] ####[facility] (BEAKER)[address] [place] [address] Hematocrit (Bld) [Volume fraction] 30 % Low 38-51 [facility] Comment on above: Performed By: #### L [id number] ####[facility] (BEAKER)[address] [place] [address] Hemoglobin (Bld) [Mass/Vol] 10.2 g/dL Low 12.0-17.0 [facility] Comment on above: Performed By: #### L [id number] ####[facility] (BEAKER)[address] [place] [address] POCT BASE EXCESS -2.0 mmol/L Normal -2.0-3.0 [facility] Comment on above: Performed By: #### L [id number] ####[facility] (BEAKER)[address] [place] [address] POCT IONIZED CALCIUM 1.12 mmol/L Normal 1.12-1.32 [facility] Comment on above: Performed By: #### L [id number] ####[facility] (BEAKER)[address] [place] [address] POCT PCO2 44.0 mmHg Normal 41.0-51.0 [facility] Comment on above: Performed By: #### L [id number] ####[facility] (BEAKER)[address] [place] [address] POCT PH 7.34 Normal 7.31-7.41 [facility] Comment on above: Performed By: #### L [id number] ####[facility] (BEAKER)[address] [place] [address] POCT PO2 390 mmHg High 80-105 [facility] Comment on above: Performed By: #### L [id number] ####[facility] (BEAKER)[address] [place] [address] POCT SO2 100 % High 95-98 [facility] Comment on above: Performed By: #### L [id number] ####[facility] (BEAKER)[address] [place] [address] Potassium [Moles/Vol] 5.4 mmol/L High 3.5-4.9 [facility] Comment on above: Performed By: #### L [id number] ####[facility] (BEAKER)[address] [place] [address] Sodium [Moles/Vol] 136 mmol/L Low 138.0-146.0 [facility] Comment on above: Performed By: #### L [id number] ####[facility] (BEAKER)[address] [place] [address] CO2 [Moles/Vol] 25.0 mmol/L Normal 21.0-29.0 [facility] Comment on above: Performed By: #### L [id number] ####[facility] (BEAKER)[address] [place] [address] Glucose [Mass/Vol] 184 mg/dL High 70-[address] [facility] Comment on above: Performed By: #### L [id number] ####[facility] (BEAKER)[address] [place] [address] HCO3 (Bld) [Moles/Vol] 23.7 mmol/L Normal 23.0-28.0 [facility] Comment on above: Performed By: #### L [id number] ####[facility]PITAL LAB (BEAKER)[address] [place] [address] Hematocrit (Bld) [Volume fraction] 33 % Low 38-51 [facility] Comment on above: Performed By: #### L [id number] ####[facility] LAB (BEAKER)[address] [place] [address] Hemoglobin (Bld) [Mass/Vol] 11.2 g/dL Low 12.0-17.0 [facility] Comment on above: Performed By: #### L [id number] ####[facility]PITAL LAB (BEAKER)[address] [place] [address] POCT BASE EXCESS -3.0 mmol/L Low -2.0-3.0 [facility] Comment on above: Performed By: #### L [id number] ####[facility]PITAL LAB (BEAKER)[address] [address] POCT IONIZED CALCIUM 1.09 mmol/L Low 1.12-1.32 [facility] Comment on above: Performed By: #### L [id number] ####[facility] LAB (BEAKER)[address] [address] POCT PCO2 46.1 mmHg Normal 41.0-51.0 [facility] Comment on above: Performed By: #### L [id number] ####[facility] (BEAKER)[address] [address] POCT PH 7.32 Normal 7.31-7.41 [facility] Comment on above: Performed By: #### L [id number] ####[facility] (BEAKER)[address] [address] POCT PO2 400 mmHg High 80-105 [facility] Comment on above: Performed By: #### L [id number] ####[facility] (BEAKER)[address] [address] POCT SO2 100 % High 95-98 [facility] Comment on above: Performed By: #### L [id number] ####[facility] LAB (BEAKER)[address] [place] [address] Potassium [Moles/Vol] 4.5 mmol/L Normal 3.5-4.9 [facility] Comment on above: Performed By: #### L [id number] ####[facility] LAB (BEAKER)[address] [place] [address] Sodium [Moles/Vol] 136 mmol/L Low 138.0-146.0 [facility] Comment on above: Performed By: #### L [id number] ####[facility] (BEAKER)[address] [place] [address] CO2 [Moles/Vol] 25.0 mmol/L Normal 21.0-29.0 [facility] Comment on above: Performed By: #### L [id number] ####[facility] (BEAKER)[address] [address] Glucose [Mass/Vol] 193 mg/dL High 70-[address] [facility] Comment on above: Performed By: #### L [id number] ####[facility] LAB (BEAKER)[address] [address] HCO3 (Bld) [Moles/Vol] 23.6 mmol/L Normal 23.0-28.0 [facility] Comment on above: Performed By: #### L [id number] ####[facility] ([facility])[address] [address] Hematocrit (Bld) [Volume fraction] 26 % Low 38-51 [facility] Comment on above: Performed By: #### L [id number] ####[facility] (BEAKER)[address] [place] [address] Hemoglobin (Bld) [Mass/Vol] 8.8 g/dL Low 12.0-17.0 [facility] Comment on above: Performed By: #### L [id number] ####[facility] LAB (BEAKER)[address] [address] POCT BASE EXCESS -2.0 mmol/L Normal -2.0-3.0 [facility] Comment on above: Performed By: #### L [id number] ####[facility] (BEAKER)[address] [address] POCT IONIZED CALCIUM 1.06 mmol/L Low 1.12-1.32 [facility] Comment on above: Performed By: #### L [id number] ####[facility] (BEAKER)[address] [place] [address] POCT PCO2 40.9 mmHg Low 41.0-51.0 [facility] Comment on above: Performed By: #### L [id number] ####[facility] ([facility])[address] [address] POCT PH 7.37 Normal 7.31-7.41 [facility] Comment on above: Performed By: #### L [id number] ####[facility] ([facility])[address] [address] POCT PO2 510 mmHg High 80-105 [facility] Comment on above: Performed By: #### L [id number] ####[facility] ([facility])[address] [address] POCT SO2 100 % High 95-98 [facility] Comment on above: Performed By: #### L [id number] ####[facility] ([facility])[address] [address] Potassium [Moles/Vol] 4.4 mmol/L Normal 3.5-4.9 [facility] Comment on above: Performed By: #### L [id number] ####[facility] ([facility])[address] [place] [address] Sodium [Moles/Vol] 135 mmol/L Low 138.0-146.0 [facility] Comment on above: Performed By: #### L [id number] ####[facility] ([facility])[address] [address] CO2 [Moles/Vol] 24.0 mmol/L Normal 21.0-29.0 [facility] Comment on above: Performed By: #### L [id number] ####[facility] ([facility])[address] [address] Glucose [Mass/Vol] 185 mg/dL High 70-[address] [facility] Comment on above: Performed By: #### L [id number] ####[facility] (BEAKER)[address] [place] [address] HCO3 (Bld) [Moles/Vol] 22.7 mmol/L Low 23.0-28.0 [facility] Comment on above: Performed By: #### L [id number] ####[facility] (BEAKER)[address] [place] [address] Hematocrit (Bld) [Volume fraction] 26 % Low 38-51 [facility] Comment on above: Performed By: #### L [id number] ####[facility] (BEAKER)[address] [place] [address] Hemoglobin (Bld) [Mass/Vol] 8.8 g/dL Low 12.0-17.0 [facility] Comment on above: Performed By: #### L [id number] ####[facility] (BEAKER)[address] [place] [address] POCT BASE EXCESS -2.0 mmol/L Normal -2.0-3.0 [facility] Comment on above: Performed By: #### L [id number] ####[facility] (BEAKER)[address] [place] [address] POCT IONIZED CALCIUM 1.10 mmol/L Low 1.12-1.32 [facility] Comment on above: Performed By: #### L [id number] ####[facility] (BEAKER)[address] [place] [address] POCT PCO2 37.2 mmHg Low 41.0-51.0 [facility] Comment on above: Performed By: #### L [id number] ####[facility] (BEAKER)[address] [place] [address] POCT PH 7.39 Normal 7.31-7.41 [facility] Comment on above: Performed By: #### L [id number] ####[facility] (BEAKER)[address] [place] [address] POCT PO2 485 mmHg High 80-105 [facility] Comment on above: Performed By: #### L [id number] ####[facility] (BEAKER)[address] [place] [address] POCT SO2 100 % High 95-98 [facility] Comment on above: Performed By: #### L [id number] ####[facility] (BEAKER)[address] [place] [address] Potassium [Moles/Vol] 3.7 mmol/L Normal 3.5-4.9 [facility] Comment on above: Performed By: #### L [id number] ####[facility] (BEAKER)[address] [place] [address] Sodium [Moles/Vol] 136 mmol/L Low 138.0-146.0 [facility] Comment on above: Performed By: #### L [id number] ####[facility] (BEAKER)[address] [place] [address] CO2 [Moles/Vol] 23.0 mmol/L Normal 21.0-29.0 [facility] Comment on above: Performed By: #### L [id number] ####[facility] (BEAKER)[address] [place] [address] Glucose [Mass/Vol] 132 mg/dL High 70-[address] [facility] Comment on above: Performed By: #### L [id number] ####[facility] (BEAKER)[address] [place] [address] HCO3 (Bld) [Moles/Vol] 21.5 mmol/L Low 23.0-28.0 [facility] Comment on above: Performed By: #### L [id number] ####[facility] (BEAKER)[address] [place] [address] Hematocrit (Bld) [Volume fraction] 29 % Low 38-51 [facility] Comment on above: Performed By: #### L [id number] ####[facility] (BEAKER)[address] [place] [address] Hemoglobin (Bld) [Mass/Vol] 9.9 g/dL Low 12.0-17.0 [facility] Comment on above: Performed By: #### L [id number] ####[facility] (BEAKER)[address] [place] [address] POCT BASE EXCESS -4.0 mmol/L Low -2.0-3.0 [facility] Comment on above: Performed By: #### L [id number] ####[facility] (BEAKER)[address] [address] POCT IONIZED CALCIUM 1.27 mmol/L Normal 1.12-1.32 [facility] Comment on above: Performed By: #### L [id number] ####[facility] (BEAKER)[address] [address] POCT PCO2 38.3 mmHg Low 41.0-51.0 [facility] Comment on above: Performed By: #### L [id number] ####[facility] ([facility])[address] [address] POCT PH 7.36 Normal 7.31-7.41 [facility] Comment on above: Performed By: #### L [id number] ####[facility] (BEAKER)[address] [address] POCT PO2 214 mmHg High 80-105 [facility] Comment on above: Performed By: #### L [id number] ####[facility] (BEAKER)[address] [address] POCT SO2 100 % High 95-98 [facility] Comment on above: Performed By: #### L [id number] ####[facility] ([facility])[address] [address] Potassium [Moles/Vol] 3.9 mmol/L Normal 3.5-4.9 [facility] Comment on above: Performed By: #### L [id number] ####[facility] (BEAKER)[address] [address] Sodium [Moles/Vol] 137 mmol/L Low 138.0-146.0 [facility] Comment on above: Performed By: #### L [id number] ####[facility] (BEAKER)[address] [address] POCT BASE EXCESS Normal [facility] Comment on above: Performed By: #### L [id number] ####[facility] ([facility])[address] [place] [address] POCT GLUCOSE Normal [facility] Comment on above: Performed By: #### L [id number] ####[facility] ([facility])[address] [place] [address] POCT HCO3 Normal [facility] Comment on above: Performed By: #### L [id number] ####[facility] ([facility])[address] [place] [address] POCT HEMATOCRIT Normal [facility] Comment on above: Performed By: #### L [id number] ####[facility] ([facility])[address] [place] [address] POCT HEMOGLOBIN Normal [facility] Comment on above: Performed By: #### L [id number] ####[facility] ([facility])[address] [place] [address] POCT IONIZED CALCIUM Normal [facility] Comment on above: Performed By: #### L [id number] ####[facility] ([facility])[address] [place] [address] POCT PCO2 Normal [facility] Comment on above: Performed By: #### L [id number] ####[facility] ([facility])[address] [place] [address] POCT PH Normal [facility] Comment on above: Performed By: #### L [id number] ####[facility] ([facility])[address] [place] [address] POCT PO2 53 mmHg Low 80-105 [facility] Comment on above: Performed By: #### L [id number] ####[facility] (BEAKER)[address] [place] [address] POCT POTASSIUM Normal [facility] Comment on above: Performed By: #### L [id number] ####[facility] ([facility])[address] [place] [address] POCT SO2 85 % Low 95-98 [facility] Comment on above: Performed By: #### L [id number] ####[facility] (BEAKER)[address] [place] [address] POCT SODIUM Normal [facility] Comment on above: Performed By: #### L [id number] ####[facility] (BEAKER)[address] [place] [address] POCT TOTAL CO2 Normal [facility] Comment on above: Performed By: #### L [id number] ####[facility] (BEAKER)[address] [place] [address] CO2 [Moles/Vol] 25.0 mmol/L Normal 21.0-29.0 [facility] Comment on above: Performed By: #### L [id number] ####[facility] (BEAKER)[address] [place] [address] Glucose [Mass/Vol] 114 mg/dL High 70-[address] [facility] Comment on above: Performed By: #### L [id number] ####[facility] (BEAKER)[address] [place], [place] [address] HCO3 (Bld) [Moles/Vol] 23.4 mmol/L Normal 23.0-28.0 [facility] Comment on above: Performed By: #### L [id number] ####[facility] (BEAKER)[address] [place] [address] Hematocrit (Bld) [Volume fraction] 30 % Low 38-51 [facility] Comment on above: Performed By: #### L [id number] ####[facility] (BEAKER)[address] [place] [address] Hemoglobin (Bld) [Mass/Vol] 10.2 g/dL Low 12.0-17.0 [facility] Comment on above: Performed By: #### L [id number] ####[facility] (BEAKER)[address] [place] [address] POCT BASE EXCESS -2.0 mmol/L Normal -2.0-3.0 [facility] Comment on above: Performed By: #### L [id number] ####[facility] ([facility] [address] POCT IONIZED CALCIUM 1.19 mmol/L Normal 1.12-1.32 [facility] Comment on above: Performed By: #### L [id number] ####[facility] ([facility])[address] [address] POCT PCO2 40.0 mmHg Low 41.0-51.0 [facility] Comment on above: Performed By: #### L [id number] ####[facility] ([facility])[address] [address] POCT PH 7.38 Normal 7.31-7.41 [facility] Comment on above: Performed By: #### L [id number] ####[facility] ([facility])[address] [address] POCT PO2 159 mmHg High 80-105 [facility] Comment on above: Performed By: #### L [id number] ####[facility] ([facility])[address] [address] POCT SO2 99 % High 95-98 [facility] Comment on above: Performed By: #### L [id number] ####[facility] ([facility])[address] [address] Potassium [Moles/Vol] 4.1 mmol/L Normal 3.5-4.9 [facility] Comment on above: Performed By: #### L [id number] ####[facility] ([facility])[address] [address] Sodium [Moles/Vol] 137 mmol/L Low 138.0-146.0 [facility] Comment on above: Performed By: #### L [id number] ####[facility] ([facility])[address] [address] PROTIME-INRon 06-26-2023 INR IN PPP BY COAGULATION ASSAY 1.29 High 0.90-1.10 [facility] Comment on above: Result Comment: [facility] RECOMMENDED INR FOR WARFARIN THERAPY CONDITION INRPROPHYLAXIS OF VENOUS THROMBOSIS 2-3(HIGH-RISK SURGERY)TREATMENT OF VENOUS THROMBOSIS 2-3TREATMENT OF PULMONARY EMBOLISM 2-3PREVENTION OF SYSTEMIC EMBOLISM: 2-3 ACUTE MYOCARDIAL INFARCTION TISSUE HEART VALVES VALVULAR HEART DISEASE ATRIAL FIBRILLATION RECURRENT SYSTEMIC EMBOLISMMECHANICAL HEART VALVE 2.5-3.5 FROM: ORAL ANTICOAGULANTS. MECHANISM OF ACTION, CLINICAL EFFECTIVENESS, AND OPTIMAL THERAPEUTIC RANGE. CHEST 1995;108:231S-246S. Performed By: #### L [id number] ####[facility])[address] [place] [address] PROTHROMBIN TIME (PT) IN PPP BY COAGULATION ASSAY 16.1 Seconds High 12.3-14.8 [facility] Comment on above: Performed By: #### L [id number] ####[facility] ([employer])[address] [place] [address] INR IN PPP BY COAGULATION ASSAY 1.37 High 0.90-1.10 [facility] Comment on above: Order Comment: Pre-o p diagnosis:Aortic valve disorder [I35.9] Result Comment: [facility] RECOMMENDED INR FOR WARFARIN THERAPY CONDITION INRPROPHYLAXIS OF VENOUS THROMBOSIS 2-3(HIGH-RISK SURGERY)TREATMENT OF VENOUS THROMBOSIS 2-3TREATMENT OF PULMONARY EMBOLISM 2-3PREVENTION OF SYSTEMIC EMBOLISM: 2-3 ACUTE MYOCARDIAL INFARCTION TISSUE HEART VALVES VALVULAR HEART DISEASE ATRIAL FIBRILLATION RECURRENT SYSTEMIC EMBOLISMMECHANICAL HEART VALVE 2.5-3.5 FROM: ORAL ANTICOAGULANTS. MECHANISM OF ACTION, CLINICAL EFFECTIVENESS, AND OPTIMAL THERAPEUTIC RANGE. CHEST 1995;108:231S-246S. Performed By: #### L [id number] ####[facility] ([employer])[address] [place] [address] PROTHROMBIN TIME (PT) IN PPP BY COAGULATION ASSAY 16.9 Seconds High 12.3-14.8 [facility] Comment on above: Order Comment: Pre-o p diagnosis:Aortic valve disorder [I35.9] Performed By: #### L [id number] ####[facility] (BEAKER)[address] [place] [address] INR IN PPP BY COAGULATION ASSAY 1.06 Normal 0.90-1.10 [facility] Comment on above: Result Comment: [facility] FOR WARFARIN THERAPY CONDITION INRPROPHYLAXIS OF VENOUS THROMBOSIS 2-3(HIGH-RISK SURGERY)TREATMENT OF VENOUS THROMBOSIS 2-3TREATMENT OF PULMONARY EMBOLISM 2-3PREVENTION OF SYSTEMIC EMBOLISM: 2-3 ACUTE MYOCARDIAL INFARCTION TISSUE HEART VALVES VALVULAR HEART DISEASE ATRIAL FIBRILLATION RECURRENT SYSTEMIC EMBOLISMMECHANICAL HEART VALVE 2.5-3.5 FROM: ORAL ANTICOAGULANTS. MECHANISM OF ACTION, CLINICAL EFFECTIVENESS, AND OPTIMAL THERAPEUTIC RANGE. CHEST 1995;108:231S-246S. Performed By: #### L [id number] ####[facility] ([facility])[address] [place] [address] PROTHROMBIN TIME (PT) IN PPP BY COAGULATION ASSAY 13.8 Seconds Normal 12.3-14.8 [facility] Comment on above: Performed By: #### L [id number] ####[facility] ([facility])[address] [place] [address] TISSUE CULTUREon 06-26-2023 Bacteria identified Cx Nom (Unsp spec) No growth at 5 days Normal [facility] Comment on above: Order Comment: Pre-o p diagnosis:Aortic valve disorder [I35.9] Performed By: #### L [id number] ####[facility] ([facility])[address] [place] [address] GRAM STAIN RESULT Normal [facility] Comment on above: Order Comment: Pre-o p diagnosis:Aortic valve disorder [I35.9] Result Comment: No p olymorphonuclear leukocytes seenNo organisms seen Performed By: #### L [id number] ####[facility] ([facility])[address] [place] [address] 30on 06-25-2023 30 Normal [facility] ANESon 06-25-2023 ANES Normal [facility] APTTon 06-25-2023 ACTIVATED PARTIAL THROMBOPLASTIN TIME IN PPP BY COAGULATION ASSAY 31.3 Seconds Normal 25.0-35.0 [facility] Comment on above: Result Comment: Clin ical significance of the APTT is questionable in the presence of heparin. Performed By: #### L [id number] ####[facility] ([facility])[address] [place] [address] CBC WITH AUTO DIFFERENTIALon 06-25-2023 Basophils (Bld) [#/Vol] 0.04 10*3/uL Normal 0.00-0.20 [facility] Comment on above: Performed By: #### L [id number] ####[facility] (BEAKER)[address] [place] [address] Basophils/100 WBC (Bld) 0.8 % Normal 0.0-1.0 [facility] Comment on above: Performed By: #### L [id number] ####[facility] (BEAKER)[address] [place] [address] Eosinophils (Bld) [#/Vol] 0.38 10*3/uL Normal 0.00-0.50 [facility] Comment on above: Performed By: #### L [id number] ####[facility] (BEAKER)[address] [place], [place] [address] Eosinophils/100 WBC (Bld) 7.7 % High 0.0-6.0 [facility] Comment on above: Performed By: #### L [id number] ####[facility] (BEAKER)[address] [place] [address] Erythrocyte distribution width (RBC) [Ratio] 16.0 % High 11.5-15.0 [facility] Comment on above: Performed By: #### L [id number] ####[facility] (BEAKER)[address] [place] [address] ERYTHROCYTE MEAN CORPUSCULAR HEMOGLOBIN CONCENTRATION (G/DL) BY AUTOMATED 34.0 g/dL Normal 32.0-35.0 [facility] Comment on above: Performed By: #### L [id number] ####[facility] (BEAKER)[address] [place] [address] Hematocrit (Bld) [Volume fraction] 32.6 % Low 39.0-55.0 [facility] Comment on above: Performed By: #### L [id number] ####[facility] (BEAKER)[address] [place] [address] Hemoglobin (Bld) [Mass/Vol] 11.1 g/dL Low 13.0-17.0 [facility] Comment on above: Performed By: #### L [id number] ####[facility] (BEAKER)[address] [place] [address] Immature granulocytes (Bld) [#/Vol] 0.02 10*3/uL Normal 0.00-0.20 [facility] Comment on above: Performed By: #### L [id number] ####[facility] (BEAKER)[address] [place] [address] Immature granulocytes/100 WBC (Bld) 0.4 % Normal 0.0-1.0 [facility] Comment on above: Performed By: #### L [id number] ####[facility] (BEAKER)[address] [place] [address] Lymphocytes (Bld) [#/Vol] 0.80 10*3/uL Low 1.20-4.00 [facility] Comment on above: Performed By: #### L [id number] ####[facility] (BEAKER)[address] [place] [address] Lymphocytes/100 WBC (Bld) 16.2 % Low 20.0-45.0 [facility] Comment on above: Performed By: #### L [id number] ####[facility] (BEAKER)[address] [place] [address] MCH (RBC) [Entitic mass] 29.8 pg Normal 27.0-33.0 [facility] Comment on above: Performed By: #### L [id number] ####[facility] (BEAKER)[address] [place] [address] MCV (RBC) [Entitic vol] 87.4 fL Normal 82.0-98.0 [facility] Comment on above: Performed By: #### L [id number] ####[facility] (BEAKER)[address] [place] [address] Monocytes (Bld) [#/Vol] 0.42 10*3/uL Normal 0.10-1.00 [facility] Comment on above: Performed By: #### L [id number] ####[facility] (BEAKER)[address] [place] [address] Monocytes/100 WBC (Bld) 8.5 % Normal 5.0-12.0 [facility] Comment on above: Performed By: #### L [id number] ####[facility] ([facility])[address] [place] [address] Neutrophils (Bld) [#/Vol] 3.29 10*3/uL Normal 1.60-7.60 [facility] Comment on above: Performed By: #### L [id number] ####[facility] ([facility])[address] [place] [address] Neutrophils/100 WBC (Bld) 66.4 % Normal 40.0-72.0 [facility] Comment on above: Performed By: #### L [id number] ####[facility] ([facility])[address] [place] [address] NRBC (PER 100 WBCS) BY AUTOMATED COUNT 0.0 % Normal 0 [facility] Comment on above: Performed By: #### L [id number] ####[facility] ([facility])[address] [place] [address] PLATELETS (10*3/UL) IN BLOOD AUTOMATED COUNT 142 10*3/uL Low 150-400 [facility] Comment on above: Performed By: #### L [id number] ####[facility] ([facility])[address] [place] [address] RBC (Bld) [#/Vol] 3.73 10*6/uL Low 4.20-5.70 [facility] Comment on above: Performed By: #### L [id number] ####[facility] (BEAKER)[address] [place] [address] WBC (Bld) [#/Vol] 4.95 10*3/uL Normal 4.00-10.60 [facility] Comment on above: Performed By: #### L [id number] ####[facility] (BEAKER)[address] [place] [address] COMPREHENSIVE METABOLIC PANE Braulio 06-25-2023 Albumin [Mass/Vol] 3.9 g/dL Normal 3.5-5.[address] [facility] Comment on above: Performed By: #### L [id number] ####[facility] ([facility])[address] [place] [address] ALP [Catalytic activity/Vol] 49 U/L Normal 34-104 [facility] Comment on above: Performed By: #### L [id number] ####[facility] ([facility])[address] [place] [address] ALT [Catalytic activity/Vol] 13 U/L Normal 7-52 [facility] Comment on above: Performed By: #### L [id number] ####[facility] ([facility])[address] [place] [address] Anion gap [Moles/Vol] 11 mmol/L Normal 7-20 [facility] Comment on above: Performed By: #### L [id number] ####[facility] ([facility])[address] [place] [address] AST [Catalytic activity/Vol] 12 U/L Low 13-39 [facility] Comment on above: Performed By: #### L [id number] ####[facility] ([facility])[address] [place] [address] Bilirubin [Mass/Vol] 0.8 mg/dL Normal 0.3-1.0 [facility] Comment on above: Performed By: #### L [id number] ####[facility] ([facility])[address] [place] [address] Calcium [Mass/Vol] 8.8 mg/dL Normal 8.6-10.[address] [facility] Comment on above: Performed By: #### L [id number] ####[facility] ([facility])[address] [place] [address] Chloride [Moles/Vol] 102 mmol/L Normal 98-107 [facility] Comment on above: Performed By: #### L [id number] ####[facility] ([facility])[address] [place] [address] CO2 [Moles/Vol] 26 mmol/L Normal 21-31 [facility] Comment on above: Performed By: #### L [id number] ####[facility] ([facility])[address] [place] [address] Creatinine [Mass/Vol] 0.84 mg/dL Normal 0.70-1.30 [facility] Comment on above: Performed By: #### L [id number] ####[facility] ([facility])[address] [place] [address] GLOMERULAR FILTRATION RATE ML/MIN/1.73 SQ M.PREDICTED 106.2 mL/min/1.73m*2 Normal >60.0 [facility] Comment on above: Result Comment: The [facility]???s estimated glomerular filtration rate (eGFR) will no [...] of individuals. Performed By: #### L [id number] ####[facility] ([facility])[address] [place] [address] Glucose [Mass/Vol] 93 mg/dL Normal 70-[address] [facility] Comment on above: Performed By: #### L [id number] ####[facility] ([facility])[address] [place] [address] Potassium [Moles/Vol] 4.3 mmol/L Normal 3.5-5.1 [facility] Comment on above: Performed By: #### L [id number] ####[facility] ([facility])[address] [facility] [place] [address] Protein [Mass/Vol] 6.2 g/dL Normal 6.0-8.[address] [facility] Comment on above: Performed By: #### L [id number] ####[facility] ([facility])[address] [facility] [place] [address] Sodium [Moles/Vol] 135 mmol/L Low 136-[address] [facility] Comment on above: Performed By: #### L [id number] ####[facility] ([facility])[address] [facility] [place] [address] Urea nitrogen [Mass/Vol] 15 mg/dL Normal 7-25 [facility] Comment on above: Performed By: #### L [id number] ####[facility] ([facility])[address] [place] [address] UREA NITROGEN/CREATININE (MASS RATIO) IN SER/PLAS 17.9 Normal [facility] Comment on above: Performed By: #### L [id number] ####[facility] ([facility])[address] [facility] [place] [address] MAGNESIUMon 06-25-2023 Magnesium [Mass/Vol] 1.9 mg/dL Normal 1.9-2.7 [facility] Comment on above: Performed By: #### L [id number] ####[facility] ([facility])[address] [place] [address] MRSA/MSSA DNA NASALon 2023 MRSA DNA Negative Normal Negative [facility] Comment on above: Order Comment: Testi ng [...] preclude nasal colonization. Performed By: #### L [id number] ####[facility] ([facility])[address] [facility] [place] [address] MSSA DNA Negative Normal Negative [facility] Comment on above: Order Comment: Testi ng [...] preclude nasal colonization. Performed By: #### L [id number] ####[facility] (BEAKER)[address] [place] [address] PROTIME-INRon 06-25-2023 INR IN PPP BY COAGULATION ASSAY 1.02 Normal 0.90-1.10 [facility] Comment on above: Result Comment: ACCC P [...] CHEST 1995;108:231S-246S. Performed By: #### L [id number] ####[facility] (BEAKER)[address] [place] [address] PROTHROMBIN TIME (PT) IN PPP BY COAGULATION ASSAY 13.4 Seconds Normal 12.3-14.8 [facility] Comment on above: Performed By: #### L [id number] ####[facility] (BEAKER)[address] [place] [address] TYPE AND SCREENon 06-25-2023 AB SCREEN Negative Normal [facility] Comment on above: Performed By: #### L [id number] ####[facility], ABO group Nom (Bld) A Normal [facility] Comment on above: Performed By: #### L [id number] ####[facility], RH TYPE IN BLOOD Negative Normal [facility] Comment on above: Performed By: #### L [id number] ####[facility], URINALYSISon 06-25-2023 BILIRUBIN, TOTAL PRESENCE IN URINE Negative Normal Negative [facility] Comment on above: Performed By: #### L [id number] ####[facility] (BEAKER)[address] [place] [address] Clarity (U) Clear Normal Clear [facility] Comment on above: Performed By: #### L [id number] ####[facility] (BEAKER)[address] [place] [address] Color (U) Kylie Abnormal Yellow [facility] Comment on above: Performed By: #### L [id number] ####[facility] (BEAKER)[address] [place] [address] Glucose (U) [Mass/Vol] Negative Normal Negative [facility] Comment on above: Performed By: #### L [id number] ####[facility] (BEAKER)[address] [place] [address] HEMOGLOBIN PRESENCE IN URINE Negative Normal Negative [facility] Comment on above: Performed By: #### L [id number] ####[facility] (BEAKER)[address] [place] [address] Ketones Ql (U) Negative Normal Negative [facility] Comment on above: Performed By: #### L [id number] ####[facility] (BEAKER)[address] [place] [address] LEUKOCYTE ESTERASE PRESENCE IN URINE BY TEST STRIP Negative Normal Negative [facility] Comment on above: Performed By: #### L [id number] ####[facility] (BEAKER)[address] [place] [address] NITRITE PRESENCE IN URINE Negative Normal Negative [facility] Comment on above: Performed By: #### L [id number] ####[facility] (BEAKER)[address] [place] [address] pH (U) 5.0 [pH] Normal 5.0-8.0 [facility] Comment on above: Performed By: #### L [id number] ####[facility] ([facility])[address] [place] [address] Protein (U) [Mass/Vol] 100 mg/dL Abnormal Negative [facility] Comment on above: Performed By: #### L [id number] ####[facility] ([facility])[address] [place] [address] Specific gravity (U) [Rel density] 1.033 High 1.015-1.020 [facility] Comment on above: Performed By: #### L [id number] ####[facility] ([facility])[address] [place] [address] UROBILINOGEN (EU/DL) IN URINE 2.0 EU/dL Abnormal Negative [facility] Comment on above: Performed By: #### L [id number] ####[facility] ([facility])[address] [place] [address] URINALYSIS MICROSCOPICon CALCIUM OXALATE CRYSTALS (#/HPF) IN URINE Occasional Abnormal None Seen [facility] Comment on above: Performed By: #### L [id number] ####[facility] ([facility])[address] [place] [address] CASTS IN URINE Normal [facility] Comment on above: Performed By: #### L [id number] ####[facility] ([facility])[address] [place] [address] CRYSTALS IN URINE Present Abnormal None Seen [facility] Comment on above: Performed By: #### L [id number] ####[facility] ([facility])[address] [place] [address] MUCUS (#/HPF) IN URINE SEDIMENT Moderate Abnormal None Seen, Occasional, Few [facility] Comment on above: Performed By: #### L [id number] ####[facility] (BEAKER)[address] [place] [address] RBC (#/HPF) IN URINE SEDIMENT 3-5 Abnormal None Seen [facility] Comment on above: Performed By: #### L [id number] ####[facility] (BEAKER)[address] [place] [address] SQUAMOUS EPITHELIAL CELLS (#/HPF) IN URINE SEDIMENT Few Abnormal None Seen, Occasional [facility] Comment on above: Performed By: #### L [id number] ####[facility] ([facility])[address] [place] [address] WBC (LEUKOCYTE) (#/HPF) IN URINE SEDIMENT 0-2 Abnormal None Seen [facility] Comment on above: Performed By: #### L [id number] ####[facility] ([facility])[address] [place] [address] 30on 06-24-2023 30 Normal [facility] 30 Normal [facility] 30 Normal [facility] ANESon 06-24-2023 ANES Normal [facility] CBC WITH AUTO DIFFERENTIALon 06-24-2023 Basophils (Bld) [#/Vol] 0.03 10*3/uL Normal 0.00-0.20 [facility] Comment on above: Performed By: #### L [id number] ####[facility] (BEAKER)[address] [place] [address] Basophils/100 WBC (Bld) 0.4 % Normal 0.0-1.0 [facility] Comment on above: Performed By: #### L [id number] ####[facility] (BEAKER)[address] [place] [address] Eosinophils (Bld) [#/Vol] 0.57 10*3/uL High 0.00-0.50 [facility] Comment on above: Performed By: #### L [id number] ####[facility] (BEAKER)[address] [place] [address] Eosinophils/100 WBC (Bld) 7.7 % High 0.0-6.0 [facility] Comment on above: Performed By: #### L [id number] ####[facility] ([facility] [place] [address] Erythrocyte distribution width (RBC) [Ratio] 16.3 % High 11.5-15.0 [facility] Comment on above: Performed By: #### L [id number] ####[facility] ([facility])[address] [place] [address] ERYTHROCYTE MEAN CORPUSCULAR HEMOGLOBIN CONCENTRATION (G/DL) BY AUTOMATED 33.1 g/dL Normal 32.0-35.0 [facility] Comment on above: Performed By: #### L [id number] ####[facility] ([facility])[address] [place] [address] Hematocrit (Bld) [Volume fraction] 35.3 % Low 39.0-55.0 [facility] Comment on above: Performed By: #### L [id number] ####[facility] ([facility])[address] [place] [address] Hemoglobin (Bld) [Mass/Vol] 11.7 g/dL Low 13.0-17.0 [facility] Comment on above: Performed By: #### L [id number] ####[facility] (BEAKER)[address] [place] [address] Immature granulocytes (Bld) [#/Vol] 0.03 10*3/uL Normal 0.00-0.20 [facility] Comment on above: Performed By: #### L [id number] ####[facility] (BEAKER)[address] [place] [address] Immature granulocytes/100 WBC (Bld) 0.4 % Normal 0.0-1.0 [facility] Comment on above: Performed By: #### L [id number] ####[facility] (BEAKER)[address] [place] [address] Lymphocytes (Bld) [#/Vol] 1.05 10*3/uL Low 1.20-4.00 [facility] Comment on above: Performed By: #### L [id number] ####[facility] ([facility])[address] [place] [address] Lymphocytes/100 WBC (Bld) 14.2 % Low 20.0-45.0 [facility] Comment on above: Performed By: #### L [id number] ####[facility] ([facility])[address] [place] [address] MCH (RBC) [Entitic mass] 29.3 pg Normal 27.0-33.0 [facility] Comment on above: Performed By: #### L [id number] ####[facility] ([facility])[address] [place] [address] MCV (RBC) [Entitic vol] 88.5 fL Normal 82.0-98.0 [facility] Comment on above: Performed By: #### L [id number] ####[facility] ([facility])[address] [place] [address] Monocytes (Bld) [#/Vol] 0.50 10*3/uL Normal 0.10-1.00 [facility] Comment on above: Performed By: #### L [id number] ####[facility] ([facility])[address] [place] [address] Monocytes/100 WBC (Bld) 6.8 % Normal 5.0-12.0 [facility] Comment on above: Performed By: #### L [id number] ####[facility] ([facility] [place] [address] Neutrophils (Bld) [#/Vol] 5.20 10*3/uL Normal 1.60-7.60 [facility] Comment on above: Performed By: #### L [id number] ####[facility] (BEAKER)[address] [place] [address] Neutrophils/100 WBC (Bld) 70.5 % Normal 40.0-72.0 [facility] Comment on above: Performed By: #### L [id number] ####[facility] ([facility])[address] [place] [address] NRBC (PER 100 WBCS) BY AUTOMATED COUNT 0.0 % Normal 0 [facility] Comment on above: Performed By: #### L [id number] ####[facility] ([facility])[address] [place] [address] PLATELETS (10*3/UL) IN BLOOD AUTOMATED COUNT 141 10*3/uL Low 150-400 [facility] Comment on above: Performed By: #### L [id number] ####[facility] ([facility])[address] [place] [address] RBC (Bld) [#/Vol] 3.99 10*6/uL Low 4.20-5.70 [facility] Comment on above: Performed By: #### L [id number] ####[facility] ([facility])[address] [place] [address] WBC (Bld) [#/Vol] 7.38 10*3/uL Normal 4.00-10.60 [facility] Comment on above: Performed By: #### L [id number] ####[facility] ([facility])[address] [place] [address] COMPREHENSIVE METABOLIC PANE Braulio 06-24-2023 Albumin [Mass/Vol] 4.1 g/dL Normal 3.5-5.[address] [facility] Comment on above: Performed By: #### L [id number] ####[facility] ([facility])[address] [place] [address] ALP [Catalytic activity/Vol] 53 U/L Normal 34-104 [facility] Comment on above: Performed By: #### L [id number] ####[facility] ([facility])[address] [place] [address] ALT [Catalytic activity/Vol] 12 U/L Normal 7-52 [facility] Comment on above: Performed By: #### L [id number] ####[facility] ([facility])[address] [place] [address] Anion gap [Moles/Vol] 12 mmol/L Normal 7-20 [facility] Comment on above: Performed By: #### L [id number] ####[facility] ([facility])[address] [place] [address] AST [Catalytic activity/Vol] 11 U/L Low 13-39 [facility] Comment on above: Performed By: #### L [id number] ####[facility] ([facility])[address] [place] [address] Bilirubin [Mass/Vol] 0.9 mg/dL Normal 0.3-1.0 [facility] Comment on above: Performed By: #### L [id number] ####[facility] ([facility])[address] [place] [address] Calcium [Mass/Vol] 9.0 mg/dL Normal 8.6-10.[address] [facility] Comment on above: Performed By: #### L [id number] ####[facility] ([facility])[address] [place] [address] Chloride [Moles/Vol] 100 mmol/L Normal 98-107 [facility] Comment on above: Performed By: #### L [id number] ####[facility] ([facility])[address] [place] [address] CO2 [Moles/Vol] 26 mmol/L Normal 21-31 [facility] Comment on above: Performed By: #### L [id number] ####[facility] ([facility])[address] [place] [address] Creatinine [Mass/Vol] 0.84 mg/dL Normal 0.70-1.30 [facility] Comment on above: Performed By: #### L [id number] ####[facility] ([facility])[address] [place] [address] GLOMERULAR FILTRATION RATE ML/MIN/1.73 SQ M.PREDICTED 106.2 mL/min/1.73m*2 Normal >60.0 [facility] Comment on above: Result Comment: The [facility]???s estimated glomerular filtration rate (eGFR) will no [...] of individuals. Performed By: #### L [id number] ####[facility] ([facility])[address] [place] [address] Glucose [Mass/Vol] 95 mg/dL Normal 70-[address] [facility] Comment on above: Performed By: #### L [id number] ####[facility] ([facility])[address] [place] [address] Potassium [Moles/Vol] 3.9 mmol/L Normal 3.5-5.1 [facility] Comment on above: Performed By: #### L [id number] ####[facility] ([facility])[address] [place] [address] Protein [Mass/Vol] 6.5 g/dL Normal 6.0-8.[address] [facility] Comment on above: Performed By: #### L [id number] ####[facility] ([facility])[address] [place] [address] Sodium [Moles/Vol] 134 mmol/L Low 136-[address] [facility] Comment on above: Performed By: #### L [id number] ####[facility] ([facility])[address] [place] [address] Urea nitrogen [Mass/Vol] 12 mg/dL Normal 7-25 [facility] Comment on above: Performed By: #### L [id number] ####[facility] ([facility])[address] [place] [address] UREA NITROGEN/CREATININE (MASS RATIO) IN SER/PLAS 14.3 Normal [facility] Comment on above: Performed By: #### L [id number] ####[facility] ([facility])[address] [place] [address] Documentationon 06-24-2023 Documentation Normal [facility] HPon 06-24-2023 HP Normal [facility] MAGNESIUMon 06-24-2023 Magnesium [Mass/Vol] 1.9 mg/dL Normal 1.9-2.7 [facility] Comment on above: Performed By: #### L [id number] ####[facility] ([facility])[address] [address] 30on 06-23-2023 30 Normal [facility] 30 Normal [facility] CBC WITH AUTO DIFFERENTIALon 06-23-2023 Basophils (Bld) [#/Vol] 0.04 10*3/uL Normal 0.00-0.20 [facility] Comment on above: Performed By: #### L [id number] ####[facility] ([facility])[address] [place] [address] Basophils/100 WBC (Bld) 0.5 % Normal 0.0-1.0 [facility] Comment on above: Performed By: #### L [id number] ####[facility] ([facility])[address] [place] [address] Eosinophils (Bld) [#/Vol] 0.56 10*3/uL High 0.00-0.50 [facility] Comment on above: Performed By: #### L [id number] ####[facility] ([facility])[address] [place] [address] Eosinophils/100 WBC (Bld) 7.5 % High 0.0-6.0 [facility] Comment on above: Performed By: #### L [id number] ####[facility] ([facility])[address] [place] [address] Erythrocyte distribution width (RBC) [Ratio] 16.7 % High 11.5-15.0 [facility] Comment on above: Performed By: #### L [id number] ####[facility] ([facility])[address] [place] [address] ERYTHROCYTE MEAN CORPUSCULAR HEMOGLOBIN CONCENTRATION (G/DL) BY AUTOMATED 33.2 g/dL Normal 32.0-35.0 [facility] Comment on above: Performed By: #### L [id number] ####[facility] ([facility])[address] [place] [address] Hematocrit (Bld) [Volume fraction] 34.9 % Low 39.0-55.0 [facility] Comment on above: Performed By: #### L [id number] ####[facility] ([facility])[address] [place] [address] Hemoglobin (Bld) [Mass/Vol] 11.6 g/dL Low 13.0-17.0 [facility] Comment on above: Performed By: #### L [id number] ####[facility] ([facility])[address] [place] [address] Immature granulocytes (Bld) [#/Vol] 0.03 10*3/uL Normal 0.00-0.20 [facility] Comment on above: Performed By: #### L [id number] ####[facility] ([facility])[address] [place] [address] Immature granulocytes/100 WBC (Bld) 0.4 % Normal 0.0-1.0 [facility] Comment on above: Performed By: #### L [id number] ####[facility] ([facility])[address] [place] [address] Lymphocytes (Bld) [#/Vol] 1.08 10*3/uL Low 1.20-4.00 [facility] Comment on above: Performed By: #### L [id number] ####[facility] ([facility])[address] [place] [address] Lymphocytes/100 WBC (Bld) 14.5 % Low 20.0-45.0 [facility] Comment on above: Performed By: #### L [id number] ####[facility] ([facility])[address] [place] [address] MCH (RBC) [Entitic mass] 29.6 pg Normal 27.0-33.0 [facility] Comment on above: Performed By: #### L [id number] ####[facility] ([facility])[address] [place] [address] MCV (RBC) [Entitic vol] 89.0 fL Normal 82.0-98.0 [facility] Comment on above: Performed By: #### L [id number] ####[facility] ([facility])[address] [place] [address] Monocytes (Bld) [#/Vol] 0.50 10*3/uL Normal 0.10-1.00 [facility] Comment on above: Performed By: #### L [id number] ####[facility] ([facility])[address] [place] [address] Monocytes/100 WBC (Bld) 6.7 % Normal 5.0-12.0 [facility] Comment on above: Performed By: #### L [id number] ####[facility] ([facility])[address] [place] [address] Neutrophils (Bld) [#/Vol] 5.24 10*3/uL Normal 1.60-7.60 [facility] Comment on above: Performed By: #### L [id number] ####[facility] ([facility])[address] [place] [address] Neutrophils/100 WBC (Bld) 70.4 % Normal 40.0-72.0 [facility] Comment on above: Performed By: #### L [id number] ####[facility] ([facility])[address] [place] [address] NRBC (PER 100 WBCS) BY AUTOMATED COUNT 0.0 % Normal 0 [facility] Comment on above: Performed By: #### L [id number] ####[facility] ([facility])[address] [place] [address] PLATELETS (10*3/UL) IN BLOOD AUTOMATED COUNT 120 10*3/uL Low 150-400 [facility] Comment on above: Performed By: #### L [id number] ####[facility] ([facility])[address] [place] [address] RBC (Bld) [#/Vol] 3.92 10*6/uL Low 4.20-5.70 [facility] Comment on above: Performed By: #### L [id number] ####[facility] ([facility])[address] [place] [address] WBC (Bld) [#/Vol] 7.45 10*3/uL Normal 4.00-10.60 [facility] Comment on above: Performed By: #### L [id number] ####[facility] ([facility])[address] [place] [address] COMPREHENSIVE METABOLIC PANE Braulio 06-23-2023 Albumin [Mass/Vol] 4.1 g/dL Normal 3.5-5.[address] [facility] Comment on above: Performed By: #### L [id number] ####[facility] ([facility])[address] [place] [address] ALP [Catalytic activity/Vol] 52 U/L Normal 34-104 [facility] Comment on above: Performed By: #### L [id number] ####[facility] ([facility])[address] [place] [address] ALT [Catalytic activity/Vol] 12 U/L Normal 7-52 [facility] Comment on above: Performed By: #### L [id number] ####[facility] ([facility])[address] [place] [address] Anion gap [Moles/Vol] 9 mmol/L Normal 7-20 [facility] Comment on above: Performed By: #### L [id number] ####[facility] ([facility])[address] [place] [address] AST [Catalytic activity/Vol] 9 U/L Low 13-39 [facility] Comment on above: Performed By: #### L [id number] ####[facility] ([facility])[address] [place] [address] Bilirubin [Mass/Vol] 1.0 mg/dL Normal 0.3-1.0 [facility] Comment on above: Performed By: #### L [id number] ####[facility] ([facility])[address] [place] [address] Calcium [Mass/Vol] 8.7 mg/dL Normal 8.6-10.[address] [facility] Comment on above: Performed By: #### L [id number] ####[facility] ([facility])[address] [place] [address] Chloride [Moles/Vol] 101 mmol/L Normal 98-107 [facility] Comment on above: Performed By: #### L [id number] ####[facility] ([facility])[address] [place] [address] CO2 [Moles/Vol] 27 mmol/L Normal 21-31 [facility] Comment on above: Performed By: #### L [id number] ####[facility] ([facility])[address] [place] [address] Creatinine [Mass/Vol] 0.77 mg/dL Normal 0.70-1.30 [facility] Comment on above: Performed By: #### L [id number] ####[facility] ([facility])[address] [place] [address] GLOMERULAR FILTRATION RATE ML/MIN/1.73 SQ M.PREDICTED 109.1 mL/min/1.73m*2 Normal >60.0 [facility] Comment on above: Result Comment: The [facility]???s estimated glomerular filtration rate (eGFR) will no [...] of individuals. Performed By: #### L [id number] ####[facility] ([facility])[address] [place] [address] Glucose [Mass/Vol] 106 mg/dL High 70-[address] [facility] Comment on above: Performed By: #### L [id number] ####[facility] ([facility])[address] [place] [address] Potassium [Moles/Vol] 4.1 mmol/L Normal 3.5-5.1 [facility] Comment on above: Performed By: #### L [id number] ####[facility] ([facility])[address] [place] [address] Protein [Mass/Vol] 6.2 g/dL Normal 6.0-8.[address] [facility] Comment on above: Performed By: #### L [id number] ####[facility] ([facility])[address] [place] [address] Sodium [Moles/Vol] 133 mmol/L Low 136-[address] [facility] Comment on above: Performed By: #### L [id number] ####[facility] ([facility])[address] [place] [address] Urea nitrogen [Mass/Vol] 13 mg/dL Normal 7-25 [facility] Comment on above: Performed By: #### L [id number] ####[facility] ([facility])[address] [place] [address] UREA NITROGEN/CREATININE (MASS RATIO) IN SER/PLAS 16.9 Normal [facility] Comment on above: Performed By: #### L [id number] ####[facility] ([facility])[address] [place] [address] CONSULTon 06-23-2023 CONSULT Normal [facility] 30on 06-22-2023 30 Normal [facility] 30 Normal [facility] APTTon 06-22-2023 ACTIVATED PARTIAL THROMBOPLASTIN TIME IN PPP BY COAGULATION ASSAY 31.2 Seconds Normal 25.0-35.0 [facility] Comment on above: Result Comment: Clin ical significance of the APTT is questionable in the presence of heparin. Performed By: #### L [id number] ####[facility] ([facility])[address] [place] [address] CBC WITH AUTO DIFFERENTIALon 06-22-2023 Basophils (Bld) [#/Vol] 0.03 10*3/uL Normal 0.00-0.20 [facility] Comment on above: Performed By: #### L [id number] ####[facility] ([facility])[address] [place] [address] Basophils/100 WBC (Bld) 0.4 % Normal 0.0-1.0 [facility] Comment on above: Performed By: #### L [id number] ####[facility] ([facility])[address] [place] [address] Eosinophils (Bld) [#/Vol] 0.39 10*3/uL Normal 0.00-0.50 [facility] Comment on above: Performed By: #### L [id number] ####[facility] ([facility])[address] [place] [address] Eosinophils/100 WBC (Bld) 5.0 % Normal 0.0-6.0 [facility] Comment on above: Performed By: #### L [id number] ####[facility] ([facility])[address] [place] [address] Erythrocyte distribution width (RBC) [Ratio] 16.3 % High 11.5-15.0 [facility] Comment on above: Performed By: #### L [id number] ####[facility] ([facility])[address] [place] [address] ERYTHROCYTE MEAN CORPUSCULAR HEMOGLOBIN CONCENTRATION (G/DL) BY AUTOMATED 33.1 g/dL Normal 32.0-35.0 [facility] Comment on above: Performed By: #### L [id number] ####[facility] ([facility])[address] [place] [address] Hematocrit (Bld) [Volume fraction] 35.6 % Low 39.0-55.0 [facility] Comment on above: Performed By: #### L [id number] ####[facility] ([facility])[address] [place] [address] Hemoglobin (Bld) [Mass/Vol] 11.8 g/dL Low 13.0-17.0 [facility] Comment on above: Performed By: #### L [id number] ####[facility] ([facility])[address] [place] [address] Immature granulocytes (Bld) [#/Vol] 0.02 10*3/uL Normal 0.00-0.20 [facility] Comment on above: Performed By: #### L [id number] ####[facility] ([facility])[address] [place] [address] Immature granulocytes/100 WBC (Bld) 0.3 % Normal 0.0-1.0 [facility] Comment on above: Performed By: #### L [id number] ####[facility] ([facility])[address] [place] [address] Lymphocytes (Bld) [#/Vol] 0.72 10*3/uL Low 1.20-4.00 [facility] Comment on above: Performed By: #### L [id number] ####[facility] ([facility])[address] [place] [address] Lymphocytes/100 WBC (Bld) 9.2 % Low 20.0-45.0 [facility] Comment on above: Performed By: #### L [id number] ####[facility] ([facility])[address] [place] [address] MCH (RBC) [Entitic mass] 29.0 pg Normal 27.0-33.0 [facility] Comment on above: Performed By: #### L [id number] ####[facility] ([facility])[address] [place] [address] MCV (RBC) [Entitic vol] 87.5 fL Normal 82.0-98.0 [facility] Comment on above: Performed By: #### L [id number] ####[facility] ([facility])[address] [place] [address] Monocytes (Bld) [#/Vol] 0.41 10*3/uL Normal 0.10-1.00 [facility] Comment on above: Performed By: #### L [id number] ####[facility] ([facility])[address] [place] [address] Monocytes/100 WBC (Bld) 5.2 % Normal 5.0-12.0 [facility] Comment on above: Performed By: #### L [id number] ####[facility] ([facility])[address] [place] [address] Neutrophils (Bld) [#/Vol] 6.24 10*3/uL Normal 1.60-7.60 [facility] Comment on above: Performed By: #### L [id number] ####[facility] ([facility])[address] [place] [address] Neutrophils/100 WBC (Bld) 79.9 % High 40.0-72.0 [facility] Comment on above: Performed By: #### L [id number] ####[facility] ([facility])[address] [place] [address] NRBC (PER 100 WBCS) BY AUTOMATED COUNT 0.0 % Normal 0 [facility] Comment on above: Performed By: #### L [id number] ####[facility] ([facility])[address] [place] [address] PLATELETS (10*3/UL) IN BLOOD AUTOMATED COUNT 110 10*3/uL Low 150-400 [facility] Comment on above: Performed By: #### L [id number] ####[facility] ([facility])[address] [place] [address] RBC (Bld) [#/Vol] 4.07 10*6/uL Low 4.20-5.70 [facility] Comment on above: Performed By: #### L [id number] ####[facility] ([facility])[address] [place] [address] WBC (Bld) [#/Vol] 7.81 10*3/uL Normal 4.00-10.60 [facility] Comment on above: Performed By: #### L [id number] ####[facility] ([facility])[address] [place] [address] CKon 06-22-2023 CREATINE KINASE (U/L) IN SER/PLAS 22.0 U/L Low 30.0-223.0 [facility] Comment on above: Performed By: #### L [id number] ####[facility] ([facility])[address] [place] [address] COMPREHENSIVE METABOLIC PANE Braulio 06-22-2023 Albumin [Mass/Vol] 4.0 g/dL Normal 3.5-5.[address] [facility] Comment on above: Performed By: #### L [id number] ####[facility] ([facility])[address] [place] [address] ALP [Catalytic activity/Vol] 52 U/L Normal 34-104 [facility] Comment on above: Performed By: #### L [id number] ####[facility] ([facility])[address] [place] [address] ALT [Catalytic activity/Vol] 13 U/L Normal 7-52 [facility] Comment on above: Performed By: #### L [id number] ####[facility] ([facility])[address] [place] [address] Anion gap [Moles/Vol] 12 mmol/L Normal 7-20 [facility] Comment on above: Performed By: #### L [id number] ####[facility] ([facility])[address] [place] [address] AST [Catalytic activity/Vol] 9 U/L Low 13-39 [facility] Comment on above: Performed By: #### L [id number] ####[facility] ([facility])[address] [place] [address] Bilirubin [Mass/Vol] 1.1 mg/dL High 0.3-1.0 [facility] Comment on above: Performed By: #### L [id number] ####[facility] ([facility])[address] [place] [address] Calcium [Mass/Vol] 9.1 mg/dL Normal 8.6-10.[address] [facility] Comment on above: Performed By: #### L [id number] ####[facility] ([facility])[address] [place] [address] Chloride [Moles/Vol] 100 mmol/L Normal 98-107 [facility] Comment on above: Performed By: #### L [id number] ####[facility] ([facility])[address] [place] [address] CO2 [Moles/Vol] 26 mmol/L Normal 21-31 [facility] Comment on above: Performed By: #### L [id number] ####[facility] ([facility])[address] [place] [address] Creatinine [Mass/Vol] 0.82 mg/dL Normal 0.70-1.30 [facility] Comment on above: Performed By: #### L [id number] ####[facility] ([facility])[address] [place] [address] GLOMERULAR FILTRATION RATE ML/MIN/1.73 SQ M.PREDICTED 107.0 mL/min/1.73m*2 Normal >60.0 [facility] Comment on above: Result Comment: The [facility]???s estimated glomerular filtration rate (eGFR) will no [...] of individuals. Performed By: #### L [id number] ####[facility] ([facility])[address] [place] [address] Glucose [Mass/Vol] 161 mg/dL High 70-[address] [facility] Comment on above: Performed By: #### L [id number] ####[facility] ([facility])[address] [place] [address] Potassium [Moles/Vol] 4.0 mmol/L Normal 3.5-5.1 [facility] Comment on above: Performed By: #### L [id number] ####[facility] ([facility])[address] [place] [address] Protein [Mass/Vol] 6.3 g/dL Normal 6.0-8.[address] [facility] Comment on above: Performed By: #### L [id number] ####[facility] ([facility])[address] [place] [address] Sodium [Moles/Vol] 134 mmol/L Low 136-[address] [facility] Comment on above: Performed By: #### L [id number] ####[facility] ([facility])[address] [place] [address] Urea nitrogen [Mass/Vol] 14 mg/dL Normal 7-25 [facility] Comment on above: Performed By: #### L [id number] ####[facility] ([facility])[address] [place] [address] UREA NITROGEN/CREATININE (MASS RATIO) IN SER/PLAS 17.1 Normal [facility] Comment on above: Performed By: #### L [id number] ####[facility] ([facility])[address] [place] [address] CONSULTon 06-22-2023 CONSULT Normal [facility] MAGNESIUMon 06-22-2023 Magnesium [Mass/Vol] 1.8 mg/dL Low 1.9-2.7 [facility] Comment on above: Performed By: #### L [id number] ####[facility] ([facility])[address] [place] [address] PROTIME-INRon 06-22-2023 INR IN PPP BY COAGULATION ASSAY 1.05 Normal 0.90-1.10 [facility] Comment on above: Result Comment: ACCC P [...] CHEST 1995;[id number]. Performed By: #### L [id number] ####[facility] [place] [address] PROTHROMBIN TIME (PT) IN PPP BY COAGULATION ASSAY 13.7 Seconds Normal 12.3-14.8 [facility] Comment on above: Performed By: #### L [id number] ####[facility] ([facility] [place] [address] 30on 06-21-2023 30 Normal [facility] 30 Normal [facility] 30 The patient is Moder ately Unstable - Medium risk of patient condition declining or worsening The patient's goals for the shift include COMFORT The clinical goals for the shift include VSS Normal [facility] 30 Normal [facility] 30 The patient is Moder ately Stable - Low risk of patient condition declining or worsening The patient's goals for the shift include COMFORT The clinical goals for the shift include VSS Normal [facility] ANESon 06-21-2023 ANES Normal [facility] B-TYPE NATRIURETIC PEPTIDEon 06-21-2023 Natriuretic peptide B (Bld) [Mass/Vol] 147 pg/mL High 0-100 [facility] Comment on above: Performed By: #### L [id number] ####[facility] ([facility])[address] [place] [address] BLOOD CULTUREon 06-21-2023 Bacteria identified Cx Nom (Bld) No growth at 5 days Normal [facility] Comment on above: Order Comment: From a different site than #1. Performed By: #### L [id number] ####[facility] ([facility])[address] [place] [address] C-REACTIVE PROTEINon 024 C REACTIVE PROTEIN (MG/L) IN SER/PLAS 23.3 mg/L High 0.0-7.0 [facility] Comment on above: Performed By: #### L [id number] ####[facility] ([facility])[address] [place] [address] CBC WITH AUTO DIFFERENTIALon 06-21-2023 Basophils (Bld) [#/Vol] 0.04 10*3/uL Normal 0.00-0.20 [facility] Comment on above: Performed By: #### L [id number] ####[facility] ([facility])[address] [place] [address] Basophils/100 WBC (Bld) 0.4 % Normal 0.0-1.0 [facility] Comment on above: Performed By: #### L [id number] ####[facility] ([facility])[address] [place] [address] Eosinophils (Bld) [#/Vol] 0.24 10*3/uL Normal 0.00-0.50 [facility] Comment on above: Performed By: #### L [id number] ####[facility] (BEAKER)[address] [place] [address] Eosinophils/100 WBC (Bld) 2.7 % Normal 0.0-6.0 [facility] Comment on above: Performed By: #### L [id number] ####[facility] ([facility])[address] [place] [address] Erythrocyte distribution width (RBC) [Ratio] 16.2 % High 11.5-15.0 [facility] Comment on above: Performed By: #### L [id number] ####[facility] ([facility])[address] [place] [address] ERYTHROCYTE MEAN CORPUSCULAR HEMOGLOBIN CONCENTRATION (G/DL) BY AUTOMATED 33.1 g/dL Normal 32.0-35.0 [facility] Comment on above: Performed By: #### L [id number] ####[facility] ([facility])[address] [place] [address] Hematocrit (Bld) [Volume fraction] 35.6 % Low 39.0-55.0 [facility] Comment on above: Performed By: #### L [id number] ####[facility] ([facility])[address] [place] [address] Hemoglobin (Bld) [Mass/Vol] 11.8 g/dL Low 13.0-17.0 [facility] Comment on above: Performed By: #### L [id number] ####[facility] ([facility])[address] [place] [address] Immature granulocytes (Bld) [#/Vol] 0.03 10*3/uL Normal 0.00-0.20 [facility] Comment on above: Performed By: #### L [id number] ####[facility]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 [facility] Auto Diffon 03-07-2023 Basophils/100 WBC (Bld) 0.7 % Normal 0.0-2.0 [facility] Comment on above: Order Comment: Order Added by Discern Expert. Performed By: #### 2 456393, 3379052, 8694958 ####[address] [address] Basophils/Leukocytes Auto (Bld) [Pure # fraction] 0.1 E9/L Normal 0.0-0.2 [facility] Comment on above: Order Comment: Order Added by Wilbert Expert. Performed By: #### 2 232937, 0086097, 3512739 ####[address] [address] Eosinophils/100 WBC (Bld) 2.6 % Normal 0.0-8.0 [facility] Comment on above: Order Comment: Order Added by Wilbert Expert. Performed By: #### 2 420012, 0198568, 3497696 ####[address] [address] Eosinophils/Leukocyt es Auto (Bld) [Pure # fraction] 0.2 E9/L Normal 0.0-0.5 [facility] Comment on above: Order Comment: Order Added by Discern Expert. Performed By: #### 2 231234, 4722338, 5274039 ####[address] [address] Lymphocytes/100 WBC (Bld) 18.6 % Normal 14.0-50.0 [facility] Comment on above: Order Comment: Order Added by Discern Expert. Performed By: #### 2 654764, 3817597, 5751756 ####[address] [address] Lymphocytes/Leukocyt es Auto (Bld) [Pure # fraction] 1.3 E9/L Normal 1.0-4.0 [facility] Comment on above: Order Comment: Order Added by Discern Expert. Performed By: #### 2 694002, 3405114, 8453043 ####[address] [address] Monocytes/100 WBC (Bld) 10.3 % Normal 4.0-14.0 [facility] Comment on above: Order Comment: Order Added by Discern Expert. Performed By: #### 2 363703, 7939082, 4296684 ####[address] [address] Monocytes/Leukocytes Auto (Bld) [Pure # fraction] 0.7 E9/L Normal 0.2-1.0 [facility] Comment on above: Order Comment: Order Added by Discern Expert. Performed By: #### 2 414545, 7252727, 2408048 ####[address] [address] Neutrophils/100 WBC (Bld) 67.8 % Normal 36.0-75.0 [facility] Comment on above: Order Comment: Order Added by Discern Expert. Performed By: #### 2 183677, 0167242, 5090494 ####[address] [address] Neutrophils/Leukocyt es Auto (Bld) [Pure # fraction] 4.8 E9/L Normal 2.0-7.5 [facility] Comment on above: Order Comment: Order Added by Discern Expert. Performed By: #### 2 500796, 6985854, 7586874 ####[address] [address] CBC w/ Auto Diffon 3 Erythrocyte distribution width (RBC) [Ratio] 13.1 % Normal 10.9-14.2 [facility] Comment on above: Performed By: #### 2 249335, 8305521, 7515351 ####[address] [address] Hematocrit (Bld) [Volume fraction] 39.2 % Normal 37.7-49.0 [facility] Comment on above: Performed By: #### 2 573570, 7547571, 6529877 ####[address] [address] Hemoglobin (Bld) [Mass/Vol] 13.4 g/dL Low 13.5-17.5 [facility] Comment on above: Performed By: #### 2 672897, 2710056, 6872011 ####[address] [address] MCH (RBC) [Entitic mass] 29.0 pg Normal 27.0-34.0 [facility] Comment on above: Performed By: #### 2 208178, 6152998, 4801770 ####[address] [address] MCHC (RBC) [Mass/Vol] 34.3 g/dL Normal 31.4-36.0 [facility] Comment on above: Performed By: #### 2 798470, 4625165, 6214629 ####[address] [address] MCV (RBC) [Entitic vol] 84.6 fL Normal 80.0-100.0 [facility] Comment on above: Performed By: #### 2 110450, 3069928, 7432429 ####[address] [address] Platelet mean volume (Bld) [Entitic vol] 7.7 fL Normal 6.4-10.8 [facility] Comment on above: Performed By: #### 2 777533, 0209058, 8563822 ####[address] [address] Platelets (Bld) [#/Vol] 261.0 E9/L Normal 150.0-500.0 [facility] Comment on above: Performed By: #### 2 709512, 8183731, 8802830 ####[address] [place] [address] RBC (Bld) [#/Vol] 4.6 E12/L Normal 4.3-5.9 [facility] Comment on above: Performed By: #### 2 470367, 9263035, 4599237 ####[facility] [address] [place] [address] WBC corrected for nucl RBC Auto (Bld) [#/Vol] 7.1 E9/L Normal 4.0-11.0 [facility] Comment on above: Performed By: #### 2 049053, 6406859, 8088683 ####[facility] [address] [place] [address] CHEMISTRYOrdered By: SYSTEM SYSTEM on 03-07-2023 CRP [Mass/Vol] 1.8 mg/dL Normal <=1.9mg/dL [facility] Remis ol CRPon 03-07-2023 CRP [Mass/Vol] 1.8 mg/dL Normal <=1.9 [facility] Comment on above: Performed By: #### 2 878106, 4291374, 5761322 ####[facility] [address] [place] [address] Consent for Treatmenton Consent for Treatment [id number]#1.00TIFF Normal [facility] Erythrocyte Sedimentation Ra aniya 03-07-2023 ESR (Bld) [Velocity] 9 mm/h Normal 0-19 [facility] Comment on above: Result Comment: PERF ORMED BY: [place] [address] PATHOLOGIST POST GRADUATE [employer] BARI GREENE M.D. Performed By: #### E #### [place] [id number] [facility] Erythrocyte sedimentation ra te by Photometric methodOrdered By: Huan Cowan on 03-07-2023 ESR Photometric method (Bld) [Velocity] 9 mm/hr 0-19 [facility] HEMATOLOGYOrdered By: YOHO SYSTEM on 03-07-2023 Basophils/100 WBC (Bld) 0.7 [...] 7.7 fL Normal 6.4 - 10.8 fL [facility] HemeAutoSS Platelets (Bld) [#/Vol] 261.0 E9/L Normal 150.0 - 500.0 E9/L [facility] HemeAutoSS RBC (Bld) [#/Vol] 4.6 E12/L Normal 4.3 - 5.9 E12/L [facility] HemeAutoSS WBC corrected for nucl RBC Auto (Bld) [#/Vol] 7.1 E9/L Normal 4.0 - 11.0 E9/L [facility] HemeAutoSS Lab Miscellaneous-LCon 03-07 Test Code TO [facility] Invalid Interpretation Code [facility] Comment on above: Performed By: #### 1 [id number] ####[place] [address] Test Code 595170 Invalid Interpretation Code [facility] Comment on above: Performed By: #### 1 [id number] ####[place] [id number] Test Name SED RATE/FIREAL Invalid Interpretation Code [facility] Comment on above: Performed By: #### 1 [id number] ####[place] [address] Test Name [place] 6 Invalid Interpretation Code [facility] Comment on above: Performed By: #### 1 [id number] ####[place] [address] Physician Orderon 03-07-2023 Physician Order [id number]#1.00TIFF Normal [facility] Reference Laboratory Testing Ordered By: Yasmeen Ca on 03-07-2023 Sodium [Moles/Vol] 459985 mmol/L Invalid Interpretation Code [facility] SendOutsSS Test Code TO [facility] Invalid Interpretation Code [facility] SendOutsSS Test Name SED RATE/FIREAL Invalid Interpretation Code [facility] SendOutsSS Test Name [place] 6 Invalid Interpretation Code [facility] SendOutsSS Operative Reporton Operative Report [id number]#1.00TIFF Normal [facility] Formson 02-27-2023 Forms [id number]#1.00TIFF Normal [facility] Provider Letteron 02-27-2023 Provider Letter (Inserted Image. Jessica ble to display) [id number] February 27, 2023 NEHAL BAIG [address] [place] [address] : [address] Mazariegos, The above patient has been evaluated at your request for preoperative clearance. After assessment of available pertinent labs and diagnostic tests, I feel this patient is medically optimized for surgery. Final discretion of whether the patient is cleared for surgery remains up to the surgeon/anesthesiologist. Thank you, MOSHE Mota Normal [facility] Auto Diffon 02-26-2023 Basophils/100 WBC (Bld) 0.6 % Normal 0.0-2.0 [facility] Comment on above: Order Comment: Order Added by Discern Expert. Performed By: #### 2 020950, 8198731 ####[facility] [address] [place] [address] Basophils/Leukocytes Auto (Bld) [Pure # fraction] 0.1 E9/L Normal 0.0-0.2 [facility] Comment on above: Order Comment: Order Added by Discern Expert. Performed By: #### 2 339483, 6613847 ####[facility] [address] [place] [address] Eosinophils/100 WBC (Bld) 2.3 % Normal 0.0-8.0 [facility] Comment on above: Order Comment: Order Added by Discern Expert. Performed By: #### 2 979489, 8182056 ####[facility] [address] [place] [address] Eosinophils/Leukocyt es Auto (Bld) [Pure # fraction] 0.2 E9/L Normal 0.0-0.5 [facility] Comment on above: Order Comment: Order Added by Discern Expert. Performed By: #### 2 530311, 7670378 ####[address] [address] Lymphocytes/100 WBC (Bld) 16.2 % Normal 14.0-50.0 [facility] Comment on above: Order Comment: Order Added by Discern Expert. Performed By: #### 2 489279, 0088345 ####[address] [address] Lymphocytes/Leukocyt es Auto (Bld) [Pure # fraction] 1.5 E9/L Normal 1.0-4.0 [facility] Comment on above: Order Comment: Order Added by Wilbert Expert. Performed By: #### 2 593392, 4117486 ####[address] [address] Monocytes/100 WBC (Bld) 6.8 % Normal 4.0-14.0 [facility] Comment on above: Order Comment: Order Added by Discern Expert. Performed By: #### 2 228059, 4089955 ####[address] [address] Monocytes/Leukocytes Auto (Bld) [Pure # fraction] 0.6 E9/L Normal 0.2-1.0 [facility] Comment on above: Order Comment: Order Added by Wilbert Expert. Performed By: #### 2 000158, 4521423 ####[address] [address] Neutrophils/100 WBC (Bld) 74.1 % Normal 36.0-75.0 [facility] Comment on above: Order Comment: Order Added by Wilbert Expert. Performed By: #### 2 035444, 6807570 ####[address] [address] Neutrophils/Leukocyt es Auto (Bld) [Pure # fraction] 6.6 E9/L Normal 2.0-7.5 [facility] Comment on above: Order Comment: Order Added by Discern Expert. Performed By: #### 2 502657, 3297227 ####[place] [address] [place] [address] CBC w/ Auto Diffon Erythrocyte distribution width (RBC) [Ratio] 13.6 % Normal 10.9-14.2 [facility] Comment on above: Performed By: #### 2 446975, 2713002 ####[address] [address] Hematocrit (Bld) [Volume fraction] 40.5 % Normal 37.7-49.0 [facility] Comment on above: Performed By: #### 2 626787, 8940936 ####[address] [address] Hemoglobin (Bld) [Mass/Vol] 13.9 g/dL Normal 13.5-17.5 [facility] Comment on above: Performed By: #### 2 576497, 4857512 ####[place] [address] MCH (RBC) [Entitic mass] 28.9 pg Normal 27.0-34.0 [facility] Comment on above: Performed By: #### 2 161877, 4156192 ####[address] [address] MCHC (RBC) [Mass/Vol] 34.3 g/dL Normal 31.4-36.0 [facility] Comment on above: Performed By: #### 2 724140, 2015560 ####[address] [address] MCV (RBC) [Entitic vol] 84.2 fL Normal 80.0-100.0 [facility] Comment on above: Performed By: #### 2 405302, 6536192 ####[address] [address] Platelet mean volume (Bld) [Entitic vol] 7.7 fL Normal 6.4-10.8 [facility] Comment on above: Performed By: #### 2 697136, 2767418 ####[facility] [address] [place] [address] Platelets (Bld) [#/Vol] 244.0 E9/L Normal 150.0-500.0 [facility] Comment on above: Performed By: #### 2 890130, 7677328 ####[facility] [address] [place] [address] RBC (Bld) [#/Vol] 4.8 E12/L Normal 4.3-5.9 [facility] Comment on above: Performed By: #### 2 524900, 1631617 ####[facility] [address] [place] [address] WBC corrected for nucl RBC Auto (Bld) [#/Vol] 8.9 E9/L Normal 4.0-11.0 [facility] Comment on above: Performed By: #### 2 495979, 0638980 ####[facility] [address] [place] [address] Consent for Treatmenton 01-31 Consent for Treatment [id number]#1.00TIFF Normal [facility] HEMATOLOGYOrdered By: SYSTEM SYSTEM on [...] FT HemeAutoSS Physician Orderon 02-26-2023 Physician Order [id number]#1.00TIFF Normal [facility] CHEMISTRYOrdered By: SYSTEM SYSTEM on 02-25-2023 CRP [Mass/Vol] 6.7 mg/dL High <=1.9mg/dL [facility] Remis ol CRPon 02-25-2023 CRP [Mass/Vol] 6.7 mg/dL High <=1.9 [facility] Comment on above: Performed By: #### 2 771076 ####[facility] [address] [place] [address] Consent for Treatmenton 01-31 Consent for Treatment [id number]#1.00TIFF Normal [facility] ED Note-Physicianon 02-26-20 ED Note-Physician [id number]#1.00TIFF Normal [facility] Lab Miscellaneous-LCon 02-25 Test Code 159498 Invalid Interpretation Code [facility] Comment on above: Performed By: #### 1 [id number] ####[facility] [address] [place] [address] Test Name Interleukin-6 Invalid Interpretation Code [facility] Comment on above: Performed By: #### 1 [id number] ####[facility] [address] [place] [address] Physician Orderon 02-25-2023 Physician Order [id number]#1.00TIFF Normal [facility] RAD - MISCon 02-25-2023 RAD - MISC [id number]#1.00TIFF Normal [facility] Reference Laboratory Testing Ordered By: Elysia Oseguera on 02-25-2023 Sodium [Moles/Vol] [address]48[address] mmol/L Invalid Interpretation Code [facility] SendOuts Test Name Interleukin-6 Invalid Interpretation Code [facility] SendOutsSS Consultation Noteon 02-20-20 Consultation Note [id number]#1.00TIFF Normal [facility] Operative Reporton Operative Report [id number]#1.00TIFF Normal [facility] Consultation Noteon 01-30-20 Consultation Note [id number]#1.00TIFF Normal [facility] RAD - MRI Reporton RAD - MRI Report [id number]#1.00TIFF Normal [facility] XR cerv spine AP/LAT/FLX/EXT on 01-17-2023 XR cerv spine AP/LAT/FLX/EXT [facility] [place] [address] XRay Report Signed Patient: Nehal Baig MR#: [id number] 8 : 1970 Acct:[id number] Age/Sex: 52 / M ADM Date: 01/17/23 Loc: XD Room: Type: [facility] Attending Dr: Siri BERRYC Copies to: HAIDER [...] Khadijah Roach M.D.01/17/2023 4:22 PM Dictation Location: [place] [address] Transcribed By: [facility] 01/17/23 1622 Dictated By: Khadijah Roach MD 01/17/23 1620 Signed By: 01/17/23 1622 Normal [facility] XR lumbar spine 6V w bending on 01-17-2023 XR lumbar spine 6V w bending [facility] [place] [address] XRay Report Signed Patient: Nehal Baig MR#: [id number] 8 : 1970 Acct:[id number] Age/Sex: 52 / M ADM Date: 01/17/23 Loc: XD Room: Type: [facility] Attending Dr: Siri BERRYC Copies to: HAIDER [...] Christopher Cedeno M.D.01/17/2023 12:51 PM Dictation Location: [place] [address] Transcribed By: [facility] 01/17/23 1251 Dictated By: Christopher Cedeno DO 01/17/23 1246 Signed By: 01/17/23 1251 Normal [facility] RAD - MISCon 01-16-2023 RAD - MISC [id number]#1.00TIFF Normal [facility] RAD - MISC [id number]#1.00TIFF Normal [facility] Lab Reportson 01-14-2023 Lab Reports [id number]#1.00TIFF Normal [facility] Lab Reports [id number]#1.00TIFF [facility] Retail - Clinical Noteon Retail - Clinical Note [id number]#1.00TIFF Normal [facility] Ambulatory Visit Summaryon 1 Ambulatory [...] Depression Obesity shoulder pain sleep disorder Normal [facility] XR ankle LT min 3V*on 2022 XR ankle LT min 3V* [facility] [employer] Other XR ankle LT min 3V* [facility] [employer] Other XR ankle LT min 3V* [address] [place] [address] [employer] Other XR ankle LT min 3V* [place] [address] [employer] Other XR ankle LT min 3V* XRay Report [facility] [employer] Other XR ankle LT min 3V* Signed [employer] Other XR ankle LT min 3V* Patient: Nehal Baig MR#: [id number] [employer] Other XR ankle LT min 3V* 8 [employer] Other XR ankle LT min 3V* : 1970 Acct:[id number] [employer] Other XR ankle LT min 3V* Age/Sex: 52 / M ADM Date: 12/16/22 [employer] Other XR ankle LT min 3V* Loc: XDUCLY Room: Ty pe: REG CLI [employer] Other XR ankle LT min 3V* Attending Dr: Kelly MALONEY [employer] Other XR ankle LT min 3V* Copies to: HAIDER Larson [employer] Other XR ankle LT min 3V* Ordering Provider: HAIDER Rehman [employer] Other XR ankle LT min 3V* Date of Service: 12/16/22 [employer] Other XR ankle LT min 3V* [address]) XR/XR ankle LT min 3V*: LEFT ANKLE PAIN [employer] Other XR ankle LT min 3V* XR ankle LT min 3V* 12/16/2022 10:31 AM [employer] Other XR ankle LT min 3V* SIGNS AND SYMPTOMS: Pain and swelling of the posterior left ankle [employer] Other XR ankle LT min 3V* PROTOCOL: Frontal, lateral, and oblique radiographs of the left ankle [employer] Other XR ankle LT min 3V* COMPARISON: None [employer] Other XR ankle LT min 3V* FINDINGS: [employer] Other XR ankle LT min 3V* The ankle mortise is preserved. There is no evidence of fracture or dislocation. There is Achilles [employer] Other XR ankle LT min 3V* surface calcaneal spurring. There is soft tissue swelling diffusely which is nonspecific. [employer] Other XR ankle LT min 3V* X R/XR ankle LT min 3V* [employer] Other XR ankle LT min 3V* IMPRESSION: [employer] Other XR ankle LT min 3V* No fracture. [facility] [employer] Other XR ankle LT min 3V* Diffuse soft tissue swelling. [employer] Other XR ankle LT min 3V* There is Achilles castano rface calcaneal spurring. [employer] Other XR ankle LT min 3V* Impression dictated by: Nehal Horner M.D.12/16/2022 10:42 AM [employer] Other XR ankle LT min 3V* Dictation Location: RADIO-PC-13 [facility] [employer] Other XR ankle LT min 3V* Transcribed By: PWS 12/16/22 1042 [employer] Other XR ankle LT min 3V* Dictated By: Nehal Horner II, MD 12/16/22 1042 [employer] Other XR ankle LT min 3V* Signed By: [employer] Other XR ankle LT min 3V* 12/16/22 1042 [facility] [employer] Other XR ankle LT min 3V* [facility] [address] XRay Report Signed Patient: Nehal Baig MR#: [id number] 8 : 1970 Acct:[id number] Age/Sex: 52 / M ADM Date: 12/16/22 Loc: XDUCLY Room: Type: [facility] Attending Dr: Kelly MALONEY Copies to: HAIDER [...] Nehal Horner M.D.12/16/2022 10:42 AM Dictation Location: [email or web address] Transcribed By: MARLO 12/16/22 1042 Dictated By: Nehal Horner II, MD 12/16/22 1042 Signed By: 12/16/22 1042 Normal [facility] Outside Recordson 10-25-2022 Outside Records [id number] 08-16-2022 Outside Records [id number]#1.[facility] Record[facility] 08-15-2022 Outside Records [id number]#1.[facility] Coding Summaryon 07-17-2022 Coding Summary HTMLBase 64 RymspwmeAOx0oWu+PGhlYWQ+PE 0NZDVsC51iiVBmrP8OG9uYUY5A WHBHNXHEVS0TOY3zkLK3TEjgQ1 VybiAv FmbaeLOvWQ66YLd5DOU1dUtaGT rsgU4kvLOdD3s6RhTjPG30cV16 KGmnLNEhSiG2QoOfvlpjcXGq F0xsMiGryJFiJuf+PHRhYmxlIH yvBIYrSHkcEOLoRzXdiHkuQV7c Tf0zOHCaQWSvjYwarHVqKvTs e1uaMHCkFBaxGH4azWsnJ7QkyG Y5RWRvd5l0Lv97cAU+PHRkIHN0 bIolXZzxx784MrPzb3fcMIN4 vPGmDGpsYYD7E02un8Y2OKEePC NmZWP3pUA3qD9xvVsywrnkU0Aj yGUtIhQ4UXD0zEOurA6tfAdq pijmzX9fCtc+A15VPJ6HQUUTZU 9NFho0J9NkFqcteQB+UG33PHCo HC14xOKtuNUop1vrcEu4EqUb ICDoUSM4yWlsPTxtt7YpWYZbR4 6hlYMsa0L2DJOnqDqkhEMrInCg qPJ7zA6eNVhwbplho9xcsipr Fdpiq6boto43vB56U16bYYlwKX NyETQ7LOMlJPTqzGvhep1erD9p Ii8+GYiwh9cvn2amxXo3SmWu ASDbuyExsWheBLS2n3MmEf72L0 GxuOnkh0AvJjz6nk83xTZvy8M8 qUL9WFvfQMCjfE2lCXjyTkG5 DJCsXvPmxS50xVMzKYtdFt6ygU ryuLdlSU1fKBRxljawQHXzdK3z BNQpyBWgzLkiEF1mSAZqjdgb j415HvDfUJP2DNZbqWZcD2EohN 8wLaBeCFVdLCLpZ2DchQJgLVhl S759TQurQyR2HBGcdqRwM6Vu HQWpnPttXhC1k7W5Nn1Xx1Rpef uuQQI1DZxfCGX3MfY0DbFqHmC3 N9WfVsw0WWKulNccNI5wY7Sa WLBelvhmioviaMJ6VWCiMWPxiY 84lJXkAQnmJl8ap7Z4c741QLMf JKGmuW41Uv3lfWgoAOSjfHOQ uK4lpqvkt2xqxkaxJaEhCPJuEQ i3MWd0YHIqgNowVmZeSJV8PyP4 GGA4bJWkvM1trNfkqrnpbS1a Oyc+Y69bvG3yXKQ4QHQ1ioutCB OwkoDpPE20BL10O1DdLilskHGr bGU+FXPokeSuxGpeLI7uFhCx l2oqm3SxOJglK8YyYHMaWZqxAm y1PDEpINE8wRX5hJ9rRNBrCHhh d0G5dQJ1I6GqlzVpxs8ql5ex IEKaOZfwD74ggPUmc5I9ZVYccN I9HYWbyFgjClKbhO09Epj+PGNv qAsgs2IaQfnkf8uha5eprPx8 OvPiOOWabbUpyZraOAV9g1QwFg 52B74yZSkvYJUuUNCeEMZnKRSj xLezek3wtF0aCl1+PGNvbCB3 uOE3kF3yQPUbWlL3YRalB641Bc VhbXAdDulhb7szs6zelTi8HoOb SZDyyvFnfGgyIIC3h3GvBw76 J57gTXuoDRZtCZFtJNBaTBQwpX eajf6bzM4qXf6+PY5kt6boqd02 oE24kGL+AZJjDXK4rLluCRpb SOQwwA6dYZzrKgO9VFAsQtCqaA 99xTRmNKbsVy6nfRtcwFxdLD1z NEDgzcypn673OgNcd1uyNFGc dWUzLAlcHJK4O77qm6P7KFVpXY ZcBZL8kGU9mB2qmEeuxspimICq hWyxvjVvyYhnEBglVKyxE750 IHRvcDsnPlBhdGllbnQgTmFtZT i2Q8TfRpg1QTNooRocRO9srCEa ZFtsUl2mgPvhvGxyBZ1pEAKr lckpu054KhJsm7kkLYPdoIQmJK glPML6T29ag2I8TZNaXSPiXHE1 iAI5bM2lmKgbrrokoGAixPpb yeQszPuaHWvyRQikQ145LITexG glMdRdkrXmPDGflRT7QZ08BH80 wCOkw5Z3jIY6U3ZnVXSwljtn keriiBI7NISnDKMriT48Md7uiQ kiLi3gNSDjTCJ0AOPfoVMcI6Tl cX7qCbDdVXRsYXLkC3PlbSBx AZymO216RNwgRwH1GPMopwNbK6 ZlJHVuoWdgSoC2m7A3Ts7WS6S2 AO40VK48mDHst1Z0wGB4W0Sh PZSuucsnchzgcVU3JDGuCENmnM 34Fq6bpDhaNo7vKRGcEFD8UKIn fKKaR0FpfD2vFgTjNKNvMVYt S0AhrTMmOPopE749RBqvJdX2LF ZeibYtA0AdVKJkzBunLuJ0z1Z6 Pn7OTGj9FO46VG64wPTxo9U5 nWE9A9RcSTPxifsqpcfipSZ8IX ApAMQtdJ28Xd0baKodSk5nNHOe PSZ6UGQqaUZhW6OqiF9pJbWl GDWtCNCjF5IvfFEzENgcR141ZI qmSjM4WPCchjXcM8KzCYTtqXgc KfG6f5E4Kq5XSNXkDZ81BIA1 cVC5EW32SO63O9RoOqnxtKIqoJ U+PHRhYmxlIHdpZHRoPScxMDAl PoQjoDxlHC4gWc3jFRJfPQCi nJakoUTcNgAxq6piMTIeWQrrOV 4tzNqvU4NauDC8NMOrz2x5Zt33 U09pF3OegHL+LDIqvUE4xUE0 sW4bWhYgPsY0MXydV621WwUxnX LoJrmyb9gkd6xhgGc8TjU3WAXd zzRdmUdpEOW3h6PxNm76N44v IHdpZHRoPSIxNSUiIHZhbGlnbj 2bsL3pUv5+WQAhaJM4dNT5pP3l YtNuGhT4HTtxH562RmZgwBQu Wflpa4ogg1rujAi0ZlPyMSUaiz NunHhnJJR7d7TsNz00B9CotFwd d8EiMws5ir33lWCle8J5iOS7 L0RtCBDthyjxgIOtgPczNJ2iDK JumoazRJGatI8lSFXiL0c3ScZv MiC7MXvbR1RwhiU3QZVfwQKr FAuoAKE6X16hr6B3NROsYPMqKP R9pUA2fC1wkAyfbqivwHFwtKee arNnvTbgPCmmDRmvM519XTGn mTxiAGGtcV9lOMMexNSpySurSO 3xTHJscdosGvjXVG4JPzjpRTYT QaZZUVuWDtX9B3TaFab1MVEr bScpYD7rvTDgLEdfRt7mlIdonI ueBB1zYVSdvepyPBCapR1nTFKy zXZoxKsrCB8yVEMmygpql555 SvVrOEJ2MIGtcVViV0RcjW0pLg ZsGKVxLSGxT8XvrFMzSWisJ103 JUytUdN0OMRwpfBvK6JjHEUe vXblUuP0t5P3Jv6fEs4jFW5wIJ vbFW79PL04oAHpz0E1cWN3J8Af KMYexzhwrzupeHZ1IYGaKAVc eF15iDIpGSodWj9tp0M7f613ZB AfGLLnsK48Fr3phTbfNIKlySUJ aH7asoaea7lrneunTcJmFFIk LHs8JSa7HJFzjQxtLtHgQUV0Kk C9EDO0tEHgfP6iaZjnneplnV6g Oyc+DNgqPGCgpuT1B4EoLqv6 IEWvaUbfZB1qbKZjAHknJb3zgU yacRbwTY7cQOMlphnxKSTtgD2w CPIwoYMcaTzvWM4dEIMtxrjk l188YjNxKHC2UEOnsCHjO2ArqM 2bHmIbUXDqKLJkK0HtfHPtBVkp G302HUgwBfT0NORyjcBjK3Qk ALCyiKhhPcD3n2U8Yi1UMRlTDW 48NK69aAAtf5C3qIW3A9JdEHSr ogvukxkovSZ0OIDtVQMkhQ62 vMPpRKtcKi3yf4M7p506AFXtQW VfbR75Pk1rcOawAJIuzWQGtT7v dzzqp1fwvaesGpLkCPLuAVn5 RIo2IKMbcGbaCzFbVUZ7EuT4QX F5pCCdoJ0foCupehjyiK6fEqn+ B9E3L6ExDnckiRS+JX25ZPQo PL55zESudVZji9tjlDh4OoPgVA TeLWF0qIadTZcdc7EuJURiM20f mOYpt0F2TUExhOlizNYdHwCq uLI6wF4iGLyyvgjlj8shepxuMf wdr9oqwf86eI00B25cGCprTDTt NJIsAHSfOCCvvFmjji9xtK0l Ii8+CEMbaBP8jNW2aE8xCfNuJk L3OQdhG566QxIviRLiThirl0ap s7nvxXb3UtDtMDEkwzXqfGij VUU4w7VyNd91T99iXKcdDMOyPP UmLQIoODGqvQwqwj4rrX1tCw2+ QU4qy8guro85qI87tNK+PHRk NQC1qMasVTjiTOQhzC8dOVmsQw L9DGWlRqEgwQ60kMXzASogXx1a gHsqeIqtML3pLJKoitbvi210 CmPym5enWELhvGDaMAghTQV0X2 5ut1N8VVWaJDYoMQS5bBH2aA8x bGlnbjogbGVmdDsgdmVydGlj GCrkQPttJ771IFZhrZfaFaEwhK YiN2wucmSIEG6kXwuacMF+PHRk QSU4mFhrIWfnERYecP0xCPBa R9h3VrAzIuF7OPdkS3BzgbC4AG SxrHYfLKUwxLDMsK0gztemv6pl cimeXfZpYTOvARb0EJy7EWGc lObhVdTsEBV3TqB6ZCJ4jOPhpV 5iuTiqyywwsD5sQxi+RklOOjwv dGQ+SRYvOYA1tBroQTzrTEEh sP9bEITcE2o5FsFzSmB9FGleB0 LqolJ7PJPrjMDiAYWqmVFAsN2v tmesw4suzajgHsMjNIDrJXn1 OMl8JBXqmSeyNoWiLMC4NoT8CG M2hJZztQ6thKcsjszggO3mEbv+ TVJOOjwvdGQ+WJFgTPD2rXyq DYejTAQprM1zGBFqG7i0OuWqYq P1YZdyU3HieuF1ELIpdDViVETv mRBGaH4mcwbuc4wkyjtgHrAj JWDrILv3SCp1QIVsbSfzEiAdXF J4EtW2KEI2oZOklB5eqDyozloj pC9nDbi+JIW8TYR2UT68RM57 F6YnLioclKBgvWN+PHRhYmxlIH adQBNrIExlBNTsAzRiwSfhGO5f Ti9bDAMwBFJvdFdmxOPoUhYk b2x (more content not included)... Normal [facility] ED Clinical Summaryon 2022 ED Clinical Summary [facility] [address] [place] [address] Clinical Summary PERSON INFORMATION Name: NEHAL BAIG Age: 51 Years Sex: MALE : 1970 MRN: Acct#: Visit Reason: Medical screening exam; [facility] F/U -NECK, LT SHOULDER Arrival: 07/04/2022 16:16:35 Discharge: 07/04/2022 17:00:00 LOS: 000 00:44 Check In: 07/04/2022 16:16:35 Checkout: 07/04/2022 17:00:00 Address: [address] [place] [id number] PCP: Salome Aguillon PROVIDER INFORMATION Provider Role Assigned Unassigned Joel Bledsoe PA-C ED PA 07/04/2022 16:17:58 Crystal Islas BLACK TOP MACHINE OPERATOR Nurse 07/04/2022 16:20:19 VITALS INFORMATION Vital Sign [...] verbalizes understanding of instructions given Comment: Normal [facility] ED Patient Summaryon 023 ED Patient Summary [facility] [address] [id number] PATIENT DISCHARGE INSTRUCTIONS Patient Information Name: NEHAL BAIG Age: 51 Years Date of : 1970 Reason For Visit: Medical screening exam; [facility] F/U -NECK, LT SHOULDER Arrival Time: 07/04/2022 16:16:35 Primary Care Physician: Salome Aguillon Attending Physician: Joel Bledsoe PA-C Comment: Patient Education With: Address: When: Return to this practice Comments: SatJuly 10, 2023 at 4:30 p.m. Medication Information: The exam and treatment you received today in the [facility] Emergency Department were for an urgent problem and are not intended as complete care. It is important for you to follow up with a doctor, nurse practitioner, or physician?s assistant store manager operations for ongoing care. If your symptoms become [...] so we can reach you if necessary. [facility] Emergency Department has provided you with a complete list of medications post discharge. 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 mica spreader/provider of your visit and for further instruction [...] Lumbosacral disc disease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 [address] [place] [address] STATES [facility] RBC LM.HPF (Urine sed) [#/Area] 0-3 /HPF Normal 0-3 /HPF [facility] Comment on above: Order Comment: Speci men Type: URINE SPECIMEN [facility] Address: [address] [place] [address] Performed By: #### L [id number] #### [facility]ITALRaheem COUNTS INCLUDE 234 BEDS AT THE [facility] CLIA [id number] [address] [place] [address] Specific gravity (U) [Rel density] >=1.030 High 1.005-1.030 [facility] Comment on above: Order Comment: Speci men Type: URINE SPECIMEN [facility] Address: [address] [place] [address] Performed By: #### L [id number] #### [facility] INCLUDE 234 BEDS AT THE [facility] CLIA [id number] [address] [place] [address] Urobilinogen Ql (U) 0.2 EU/dL Normal 0.2-1.0 EU/dL [facility] Comment on above: Order Comment: Speci men Type: URINE SPECIMEN [facility] Address: [address] [place] [address] Performed By: #### L [id number] #### [facility] INCLUDE 234 BEDS AT THE [facility] CLIA [id number] [address] [place] [address] [place] OF [facility] WBC LM.HPF (Urine sed) [#/Area] 0-5 /HPF Normal 0-5 /HPF [facility] Comment on above: Order Comment: Speci men Type: URINE SPECIMEN [facility] Address: [facility] [place] [address] Performed By: #### L [id number] #### AMHERST COUNTS INCLUDE 234 BEDS AT THE [facility] CLIA [id number] [address] [place], [place] [address] [place] MRI CSPINE WO CONon 04-23-19 23 MRI CSPINE WO CON EXAMINATION: MRI CSP [...] KINGSLEY HERRERA Date: 2022-04-23 06:50 Normal [facility] XR FOREIGN BODY EYEon 2022 XR FOREIGN BODY EYE EXAMINATION: XR FORE IGN BODY EYE HISTORY: Foreign body in eye COMPARISON: No relevant comparison available. FINDINGS: ORBITS: Negative for a metallic foreign body. OTHER: Negative. IMPRESSION: 1. No metallic foreign body within the orbits. Electronically authenticated by: JAYY GIVENS Date: 2022-04-20 13:52 Normal [facility] CNOVon 02-15-2022 CNOV Office Visit ([facility] ) -- NEHAL BAIG ([id number]) 1970 M Date Time Provider Department 02/15/22 2:20 PM SALOME AGUILLON During your visit today, we recorded the following information about you: Pulse Blood pressure Weight 72/minute 147/82 177.8 kg Salome Aguillon APRN.PHYSICAL THERAPY ASSISTANT 02/15/2022 4:56 PM Signed Salome Aguillon APRN.CNP 02/15/2022 4:56 PM Signed This note was created using NoteWriter. Subjective Nehal Baig is a 51 year old male. CC: routine f/up Last seen: HPI ENDO/WT: -needs f/up endo wt managmeent Dr. 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 Man/Agustina-endo wt management team [phone] Has been off metformin 6 weeks + [...] 2020. This is a workers comp issue-through [facility] orth[facility]/Dr. Cowan. 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 Shoulder replacement surgery left 08/23/24. 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 HM: -declines flu vaccine [...] looks fine. Vitamin D is low-please begin yjyq-oyw-lycyamm vitamin D3 2000 units daily. Urine asymptomatic. Component Latest Ref Rng AND Units 02/10/2022 Color Yellow Yellow Clarity Clear Clear Glucose, Urine Negative Negative Bilirubin, Urine Negative Negative Ketones, Urine Negative Negative Specific [place], Ur 1.005 - 1.030 1.037 (H) Hemoglobin/Blood,Ur [...] other (Epilepsy) (more content not included)... Normal [facility] 25(OH)D3 [facility] 2021 25-hydroxyvitamin D3 [Mass/Vol] 28.2 ng/mL Low 31.0-80.0 [facility] Comment on above: Order Comment: Speci men Type: BLOOD SPECIMENOrdering Facility: [facility] Address: [address] [place] [address] Result Comment: Clas sification of 25 [place] Vitamin D status: Deficiency/Insufficiency: < or = 30 ng/ml. Sufficiency/Optimal Levels: 31-80 ng/mL Toxicity: > 100 ng/mL. Test performed by chemiluminescent immunoassay. Performed By: #### 1 989-3 ####[facility] LABIA [id number] [address] [place] CBC panel Auto (Bld)on 02-10 Erythrocyte distribution width (RBC) [Ratio] 13.2 % Normal 11.5-15.0 [facility] Comment on above: Order Comment: Speci men Type: BLOOD SPECIMENOrdering Facility: [facility] Address: [address] [place] [address] Performed By: #### 5 8410-2 ####[facility] LABIA [id number] [address] [place] Hematocrit (Bld) [Volume fraction] 41.9 % Normal 39.0-51.0 [facility] Comment on above: Order Comment: Speci men Type: BLOOD SPECIMENOrdering Facility: [facility] Address: [address] [place] [address] Performed By: #### 5 8410-2 ####[facility] LABIA [id number] [address] [place] Hemoglobin (Bld) [Mass/Vol] 13.9 g/dL Normal 13.0-17.0 [facility] Comment on above: Order Comment: Speci men Type: BLOOD SPECIMENOrdering Facility: [facility] Address: [address] [place] [address] Performed By: #### 5 8410-2 ####[facility] LABIA [id number] [place] [address] [place] MCH (RBC) [Entitic mass] 29.0 pg Normal 26.0-34.0 [facility] Comment on above: Order Comment: Speci men Type: BLOOD SPECIMENOrdering Facility: [facility] Address: [address] [place] [address] Performed By: #### 5 8410-2 ####[facility] LABCLIA [id number] [address] [place] MCHC (RBC) [Mass/Vol] 33.2 g/dL Normal 30.5-36.0 [facility] Comment on above: Order Comment: Speci men Type: BLOOD SPECIMENOrdering Facility: [facility] Address: [address] [place] [address] Performed By: #### 5 8410-2 ####[facility] LABCLIA [id number] [address] [place] MCV (RBC) [Entitic vol] 87.5 fL Normal 80.0-100.0 [facility] Comment on above: Order Comment: Speci men Type: BLOOD SPECIMENOrdering Facility: [facility] Address: [address] [place], [place] [address] Performed By: #### 5 8410-2 ####[facility] LABCLIA [id number] [address] [place] Nucleated RBC (Bld) [#/Vol] 10*3/uL Normal <0.01 [facility] Comment on above: Order Comment: Speci men Type: BLOOD SPECIMENOrdering Facility: [facility] Address: [address] [place], [place] [address] Performed By: #### 5 8410-2 ####[facility] LABCLIA [id number] [address] [place] Platelet mean volume (Bld) [Entitic vol] 10.6 fL Normal 9.0-12.7 [facility] Comment on above: Order Comment: Speci men Type: BLOOD SPECIMENOrdering Facility: [facility] Address: [address] [address] Performed By: #### 5 8410-2 ####[facility] LABIA [id number] [address] [place] Platelets (Bld) [#/Vol] 198 10*3/uL Normal 150-400 [facility] Comment on above: Order Comment: Speci men Type: BLOOD SPECIMENOrdering Facility: [facility] Address: [address] [place] [address] Performed By: #### 5 8410-2 ####[facility] LABIA [id number] [address] STATES OF [facility] RBC (Bld) [#/Vol] 4.79 10*6/uL Normal 4.20-6.[address] [facility] Comment on above: Order Comment: Speci men Type: BLOOD SPECIMENOrdering Facility: [facility] Address: [address] [place] [address] Performed By: #### 5 8410-2 ####[facility] LABIA [id number] [address] OF [facility] WBC (Bld) [#/Vol] 6.46 10*3/uL Normal 3.70-11.[address] [facility] Comment on above: Order Comment: Speci men Type: BLOOD SPECIMENOrdering Facility: [facility] Address: [address] [place] [address] Performed By: #### 5 8410-2 ####[facility] LABIA [id number] [address] [place] Comprehensive metabolic 2000 panelon 02-10-2022 Albumin [Mass/Vol] 4.5 g/dL Normal 3.9-4.9 [facility] Comment on above: Order Comment: Speci men Type: BLOOD SPECIMENOrdering Facility: [facility] Address: [address] [place] [address] Performed By: #### 3 016-3, 56784-5 ####[facility] LABCLIA [id number] [place] [address] [place]#### 16289-0 ####[facility] LABCLIA [id number] [address] [address] [facility] LABORATORYCLIA [id number] [place] [address] [place] ALP [Catalytic activity/Vol] 85 U/L Normal 38-113 [facility] Comment on above: Order Comment: Speci men Type: BLOOD SPECIMENOrdering Facility: [facility] Address: [address] [place] [address] Performed By: #### 3 016-3, ####[facility] LABCLIA [id number] [address] [place]#### 77981-3 ####[facility] LABCLIA [id number] [address] STATES [facility] LABORATORYCLIA [id number] [place] [address] [place] ALT [Catalytic activity/Vol] 34 U/L Normal 10-54 [facility] Comment on above: Order Comment: Speci men Type: BLOOD SPECIMENOrdering Facility: [facility] Address: [address] [place], [place] [address] Performed By: #### 3 016-3, 72769-9 ####[facility] LABCLIA [id number] [place] [address] [place]#### 04394-1 ####[facility] LABCLIA [id number] [place] [id number] [place] [facility] LABORATORYCLIA [id number] [place] [address] [place] Anion gap [Moles/Vol] 10 mmol/L Normal 9-18 [facility] Comment on above: Order Comment: Speci men Type: BLOOD SPECIMENOrdering Facility: [facility] Address: [address] [place] [address] Performed By: #### 3 016-3, 82070-7 ####[facility] LABCLIA [id number] [place] [address] [place]#### 33296-6 ####[facility] LABCLIA [id number] [address] STATES [facility] LABORATORYCLIA [id number] [place] [address] [place] AST [Catalytic activity/Vol] 25 U/L Normal 14-40 [facility] Comment on above: Order Comment: Speci men Type: BLOOD SPECIMENOrdering Facility: [facility] Address: [address] [place] [address] Performed By: #### 3 016-3, ####[facility] LABCLIA [id number] [place] [address] [place]#### 13414-3 ####[facility] LABCLIA [id number] [address] STATES OF [facility] LABORATORYCLIA [id number] [place] [address] [place] Bilirubin [Mass/Vol] 0.4 mg/dL Normal 0.2-1.3 [facility] Comment on above: Order Comment: Speci men Type: BLOOD SPECIMENOrdering Facility: [facility] Address: [address] [place] [address] Performed By: #### 3 016-3, 97811-0 ####[facility] LABCLIA [id number] [place] [address] [place]#### 32987-3 ####[facility] LABCLIA [id number] [address] [place] LABORATORYCLIA [id number] [place] [address] [place] Calcium [Mass/Vol] 9.3 mg/dL Normal 8.5-10.2 [facility] Comment on above: Order Comment: Speci men Type: BLOOD SPECIMENOrdering Facility: [facility] Address: [address] [place] [address] Performed By: #### 3 016-3, 36911-9 ####[facility] LABCLIA [id number] [place] [address] [place]#### 46944-4 ####[facility] LABCLIA [id number] [address] LABORATORYCLIA [id number] [place] [address] [place] Chloride [Moles/Vol] 103 mmol/L Normal 97-105 [facility] Comment on above: Order Comment: Speci men Type: BLOOD SPECIMENOrdering Facility: [facility] Address: [address] [place] [address] Performed By: #### 3 016-3, 73245-8 ####[facility] LABCLIA [id number] [place] [address] [place]#### 34962-3 ####[facility] LABCLIA [id number] [address] STATES OF [facility] LABORATORYCLIA [id number] [place] [address] [place] CO2 [Moles/Vol] 26 mmol/L Normal 22-30 [facility] Comment on above: Order Comment: Speci men Type: BLOOD SPECIMENOrdering Facility: [facility] Address: [address] [place] [address] Performed By: #### 3 016-3, 71000-7 ####[facility] LABCLIA [id number] [address]#### 11249-1 ####[facility] LABCLIA [id number] [address] [place] LABORATORYCLIA [id number] [address] Creatinine [Mass/Vol] 0.90 mg/dL Normal 0.73-1.22 [facility] Comment on above: Order Comment: Speci men Type: BLOOD SPECIMENOrdering Facility: [facility] Address: [address] [place] [address] Performed By: #### 3 016-3, 07386-2 ####[facility] LABCLIA [id number] [address]#### 03741-8 ####[facility] LABCLIA [id number] [address] LABORATORYCLIA [id number] [address] ESTIMATED GLOMERULAR FILTRATION RATE 105 mL/min/1.73m??? Normal >=60 [facility] Comment on above: Order Comment: Tessa men Type: BLOOD SPECIMENOrdering Facility: [facility] Address: [address] [place] [address] Result Comment: Halle mated Glomerular Filtration Rate [...] actual GFR. Performed By: #### 3 016-3, 97425-4 ####[facility] LABCLIA [id number] [address] [place]#### 14329-5 ####[facility] LABCLIA [id number] [address] [facility] LABORATORYCLIA [id number] [place] [address] [place] Glucose [Mass/Vol] 115 mg/dL High 74-99 [facility] Comment on above: Order Comment: Speci men Type: BLOOD SPECIMENOrdering Facility: [facility] Address: [address] [place] [address] Result Comment: The [place] Diabetes Association (ADA) provides guidance for cutoff [...] Standards of Medical Care in Diabetes 2016, [place] Diabetes Association. Diabetes Care. 2016.39(Suppl 1). Performed By: #### 3 016-3, 23869-7 ####[facility] LABCLIA [id number] [address] STATES [place]#### 96313-6 ####[facility] LABCLIA [id number] [address] LABORATORYCLIA [id number] [place] [address] [place] Potassium [Moles/Vol] 4.2 mmol/L Normal 3.7-5.1 [facility] Comment on above: Order Comment: Speci men Type: BLOOD SPECIMENOrdering Facility: [facility] Address: [address] [place] [id number] Performed By: #### 3 016-3, 56871-7 ####[facility] LABCLIA [id number] [place] [address] [place]#### 29706-0 ####[facility] LABCLIA [id number] [address] [place] LABORATORYCLIA [id number] [place] [address] [place] Protein [Mass/Vol] 6.9 g/dL Normal 6.3-8.0 [facility] Comment on above: Order Comment: Speci men Type: BLOOD SPECIMENOrdering Facility: [facility] Address: [address] [place] [address] Performed By: #### 3 016-3, 18710-9 ####[facility] LABCLIA [id number] [place] [address] [place]#### 33637-2 ####[facility] LABCLIA [id number] [address] LABORATORYCLIA [id number] [place] [address] [place] Sodium [Moles/Vol] 139 mmol/L Normal 136-144 [facility] Comment on above: Order Comment: Speci men Type: BLOOD SPECIMENOrdering Facility: [facility] Address: [address] [place] [address] Performed By: #### 3 016-3, 37952-9 ####[facility] LABCLIA [id number] [place] [address] [place]#### 35263-3 ####[facility] LABCLIA [id number] [place] [address] [place] OF [facility] LABORATORYCLIA [id number] [facility] [address] Urea nitrogen [Mass/Vol] 15 mg/dL Normal 9-24 [facility] Comment on above: Order Comment: Tessa flores Type: BLOOD SPECIMENOrdering Facility: [facility] Address: [address] [place] [address] Performed By: #### 3 016-3, 41739-8 ####[facility] LABCLIA [id number] [address]#### 10452-6 ####[facility] LABCLIA [id number] [address] LABORATORYCLIA [id number] [address] HbA1c (Bld)on 02-10-2022 Average glucose Estimated from glycated hemoglobin (Bld) [Mass/Vol] 105 mg/dL Normal [facility] Comment on above: Order Comment: Tessa flores Type: BLOOD SPECIMENOrdering Facility: [facility] Address: [address] [place] [address] Result Comment: eAG: (Estimated average glucose) is a calculated value from HgbA1c and is field service representative of the average blood glucose level in the last 2-3 month period. Performed By: #### 5 5454-3 ####[facility] LABCLIA [id number] [address] HbA1c (Bld) [Mass fraction] 5.3 % Normal 4.3-5.6 [facility] Comment on above: Order Comment: Tessa [facility] Type: BLOOD SPECIMENOrdering Facility: [facility] Address: [address] [place] [address] Result Comment: Amer ican Diabetes Association guidelines indicate that patients with HgbA1c in the range 5.7-6.4% are at increased risk for development of diabetes, and intervention by lifestyle modification may be beneficial. HgbA1c greater or equal to 6.5% is considered diagnostic of diabetes. Performed By: #### 5 5454-3 ####[facility] LABCLIA [id number] [place] [address] [place] Lipid 1996 panelon 2 Cholesterol [Mass/Vol] 179 mg/dL Normal <200 [facility] Comment on above: Order Comment: Speci men Type: BLOOD SPECIMENOrdering Facility: [facility] Address: [address] [place] [address] Result Comment: <200 mg/dL, Desirable 200-239 mg/dL, Borderline high >239 mg/dL, High Performed By: #### 3 016-3, 02031-7 ####[facility] LABCLIA [id number] [place] [address] [place]#### 81955-3 ####[facility] LABCLIA [id number] [address] STATES OF [facility] LABORATORYCLIA [id number] [address] [place] Cholesterol in HDL [Mass/Vol] 36 mg/dL Low >39 [facility] Comment on above: Order Comment: Speci men Type: BLOOD SPECIMENOrdering Facility: [facility] Address: [address] [place] [address] Result Comment: 40-5 9 mg/dL, Acceptable >59 mg/dL, High: Negative risk factor for coronary heart disease <40 mg/dL, Low: Positive risk factor for coronary heart disease Performed By: #### 3 016-3, 08200-4 ####[facility] LABCLIA [id number] [place] [address] [place]#### 75078-8 ####[facility] LABCLIA [id number] [address] STATES OF [facility] [place] LABORATORYCLIA [id number] [place] [address] [place] Cholesterol in LDL [Mass/Vol] 104 mg/dL High <100 [facility] Comment on above: Order Comment: Selmai men Type: BLOOD SPECIMENOrdering Facility: [facility] Address: [address] [place] [address] Result Comment: <100 mg/dL, Optimal 100-129 mg/dL, Near optimal/above optimal 130-159 mg/dL, Borderline high 160-189 mg/dL, High >189 mg/dL, Very high Secondary prevention optimal LDL Cholesterol levels are recommended to be < 70 mg/dL Performed By: #### 3 016-3, 20994-3 ####[facility] LABCLIA [id number] [address]#### 83421-3 ####[facility] LABCLIA [id number] [address] LABORATORYCLIA [id number] [address] STATES [facility] Cholesterol in LDL/Cholesterol in HDL [Mass ratio] 2.89 {ratio} High <2.54 [facility] Comment on above: Order Comment: Selmai sandra Type: BLOOD SPECIMENOrdering Facility: [facility] Address: [address] [place] [address] Result Comment: Doris tucker: 1. National Cholesterol Education Program ATP III Guideline At-A-Glance Quick Desk Reference: National Heart, Lung, and Blood [place]. National Institutes of Health. 2001: NIH Publication No. 01-3305. 2. An International Atherosclerosis Society position paper: global recommendations for the management of dyslipidemia: executive summary, Atherosclerosis. 2014: 232(2):410-413. Performed By: #### 3 016-3, 90468-7 ####[facility] LABCLIA [id number] [address] [place]#### 64317-7 ####[facility] LABCLIA [id number] [address] STATES OF [facility] LABORATORYCLIA [id number] [address] [place] Cholesterol in VLDL [Mass/Vol] 39 mg/dL High <30 [facility] Comment on above: Order Comment: Speci men Type: BLOOD SPECIMENOrdering Facility: [facility] Address: [address] [place] [address] Performed By: #### 3 016-3, 04739-8 ####[facility] LABCLIA [id number] [address] [place]#### 66255-3 ####[facility] LABCLIA [id number] [address] LABORATORYCLIA [id number] [address] Cholesterol non HDL [Mass/Vol] 143 mg/dL High <130 [facility] Comment on above: Order Comment: Speci men Type: BLOOD SPECIMENOrdering Facility: [facility] Address: [address] [place] [address] Result Comment: <130 mg/dL, Optimal 130-159 mg/dL, Near optimal/above optimal 160-189 mg/dL, Borderline high 190-219 mg/dL, High >219 mg/dL, Very high Secondary prevention optimal non HDL Cholesterol levels are recommended to be <100 mg/dL Performed By: #### 3 016-3, 89496-4 ####[facility] LABCLIA [id number] [address] [place]#### 31890-6 ####[facility] LABCLIA [id number] [address] STATES OF [facility] LABORATORYCLIA [id number] [address] STATES OF [facility] Cholesterol.total/Ch olesterol in HDL [Mass ratio] 4.97 {ratio} Normal <5.10 [facility] Comment on above: Order Comment: Speci men Type: BLOOD SPECIMENOrdering Facility: [facility] Address: [address] [place] [address] Performed By: #### 3 016-3, 29168-3 ####[facility] LABCLIA [id number] [place] [address] [place]#### 77708-9 ####[facility] LABCLIA [id number] [address] [place] LABORATORYCLIA [id number] [place] [address] [place] FASTING TIME 12 hrs Normal [facility] Comment on above: Order Comment: Speci men Type: BLOOD SPECIMENOrdering Facility: [facility] Address: [address] [place] [address] Performed By: #### 3 016-3, ####[facility] LABCLIA [id number] [place] [address] [place]#### 71195-6 ####[facility] LABCLIA [id number] [address] STATES [facility] LABORATORYCLIA [id number] [place] [address] [place] Triglyceride [Mass/Vol] 197 mg/dL High <150 [facility] Comment on above: Order Comment: Speci men Type: BLOOD SPECIMENOrdering Facility: [facility] Address: [address] [place] [address] Result Comment: <150 mg/dL, Normal 150-199 mg/dL, Borderline high 200-499 mg/dL, High >499 mg/dL, Very high Performed By: #### 3 016-3, 65045-4 ####[facility] LABCLIA [id number] [place] [address] [place]#### 28780-5 ####[facility] LABCLIA [id number] [place] AV[address]UEDES[id number] LABORATORYCLIA [id number] [place] [address] [place] PSA/PROSTSPECAG SCRNon 02-10 Prostate specific Ag [Mass/Vol] 0.42 ng/mL Normal <2.60 [facility] Comment on above: Order Comment: Speci men Type: BLOOD SPECIMENOrdering Facility: [facility] Address: [address] [place] [address] Result Comment: Tota l PSA test methodology used is the Electrochemiluminescence Immunoassay by [employer]. Total PSA values by differing methodologies cannot be interchanged. Performed By: #### P SAS1 ####[facility] LABCLIA [id number] [address] [place] TSH SerPl-aCncon 02-10-2022 TSH Qn 1.220 m[IU]/L Normal 0.270-4.200 [facility] Comment on above: Order Comment: Speci men Type: BLOOD SPECIMENOrdering Facility: [facility] Address: [address] [place] [address] Performed By: #### 3 016-3, 41175-5 ####[facility] LABCLIA [id number] [place] [address] [place]#### 44268-9 ####[facility] LABCLIA [id number] [place] [address] [place] [facility] LABORATORYCLIA [id number] [place] [address] [place] URINALYSIS, REFLEX MICROSCOP ICon 02-10-2022 Bilirubin Ql (U) Negative Normal Negative Armando barr [facility] Comment on above: Order Comment: Speci men Type: URINE SPECIMENOrdering Facility: [facility] Address: [address] [place] [address] Performed By: #### L [id number] ####[facility] LABCLIA [id number] [address] [place] CALCIUM OXALATE CRYSTALS (UA) Few Abnormal None Seen [facility] Comment on above: Order Comment: Speci men Type: URINE SPECIMENOrdering Facility: [facility] Address: [address] [place], [place] [address] Performed By: #### L [id number] ####[facility] LABCLIA [id number] [place] [address] [place] Clarity (Unsp spec) Clear Normal Clear [facility] Comment on above: Order Comment: Speci men Type: URINE SPECIMENOrdering Facility: [facility] Address: [address] [place], [place] [address] Performed By: #### L [id number] ####[facility] LABCLIA [id number] [place] [address] [place] Color (U) Yellow Normal Yellow [facility] Comment on above: Order Comment: Speci men Type: URINE SPECIMENOrdering Facility: [facility] Address: [address] [place] [address] Performed By: #### L [id number] ####[facility] LABCLIA [id number] [place] [address] [place] Epithelial cells LM.HPF (Urine sed) [#/Area] Few Normal [facility] Comment on above: Order Comment: Speci men Type: URINE SPECIMENOrdering Facility: [facility] Address: [address] [place] [address] Result Comment: Few Performed By: #### L [id number] ####[facility] LABCLIA [id number] [place] [address] [place] Glucose Test strip (U) [Mass/Vol] Negative Normal Negative [facility] Comment on above: Order Comment: Speci men Type: URINE SPECIMENOrdering Facility: [facility] Address: [address] [place] [address] Performed By: #### L [id number] ####[facility] LABCLIA [id number] [place] [address] [place] Hemoglobin Ql (U) Negative Normal Negative [facility] Comment on above: Order Comment: Speci men Type: URINE SPECIMENOrdering Facility: [facility] Address: [address] [place] [address] Performed By: #### L [id number] ####[facility] LABCLIA [id number] [place] [address] [place] Ketones Ql (U) Negative Normal Negative [facility] Comment on above: Order Comment: Speci men Type: URINE SPECIMENOrdering Facility: [facility] Address: [address] [place] [address] Performed By: #### L [id number] ####[facility] LABCLIA [id number] [place] [address] [place] Leukocyte esterase Test strip Ql (U) 75 Joyce/mL Abnormal Negative [facility] Comment on above: Order Comment: Speci men Type: URINE SPECIMENOrdering Facility: [facility] Address: [address] [place] [address] Performed By: #### L [id number] ####[facility] LABCLIA [id number] [place] [address] [place] Nitrite Ql (U) Negative Normal Negative [facility] Comment on above: Order Comment: Speci men Type: URINE SPECIMENOrdering Facility: [facility] Address: [address] [place], [place] [address] Performed By: #### L [id number] ####[facility] LABCLIA [id number] [place] [address] [place] pH (U) 6.0 [pH] Normal 5.0-8.0 [facility] Comment on above: Order Comment: Speci men Type: URINE SPECIMENOrdering Facility: [facility] Address: [address] [place], [place] [address] Performed By: ####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 glucose Estimated from glycated hemoglobin (Bld) [Mass/Vol] 117 mg/dL Normal [facility] Comment on above: Order Comment: Speci men Type: BLOOD SPECIMENOrdering Facility: [facility] Address: [address] [place] [address] Result Comment: eAG: (Estimated average glucose) is a calculated value from HgbA1c and is field service representative of the average blood glucose level in the last 2-3 month period. Performed By: #### H BA1C ####[facility]ITALT COUNTS INCLUDE 234 BEDS AT [facility] LABCLIA [id number] [place] [address] [place] HbA1c (Bld) [Mass fraction] 5.7 % High 4.3-5.6 [facility] Comment on above: Order Comment: Speci men Type: BLOOD SPECIMENOrdering Facility: [facility] Address: [address] [place] [address] Result Comment: Amer ican Diabetes Association guidelines indicate that patients with HgbA1c in the range 5.7-6.4% are at increased risk for development of diabetes, and intervention by lifestyle modification may be beneficial. HgbA1c greater or equal to 6.5% is considered diagnostic of diabetes. Performed By: #### H BA1C ####CRISTOBAL COUNTS INCLUDE 234 BEDS AT [facility] LABCLIA [id number] [place] [address] [place] LIPID PANEL BASICon 07-30-19 22 Cholesterol [Mass/Vol] 240 mg/dL High <200 [facility] Comment on above: Order Comment: Tessa flores Type: BLOOD SPECIMENOrdering Facility: [facility] Address: [address] [place] [address] Result Comment: <200 mg/dL, Desirable 200-239 mg/dL, Borderline high >239 mg/dL, High Performed By: #### L KIERRAB, 53283-4 ####CRISTOBAL COUNTS INCLUDE 234 BEDS AT [facility] LABCLIA [id number] [address] [place] Cholesterol in HDL [Mass/Vol] 37 mg/dL Low >39 [facility] Comment on above: Order Comment: Tessa flores Type: BLOOD SPECIMENOrdering Facility: [facility] Address: [address] [place] [address] Result Comment: 40-5 9 mg/dL, Acceptable >59 mg/dL, High: Negative risk factor for coronary heart disease <40 mg/dL, Low: Positive risk factor for coronary heart disease Performed By: #### L KIERRAB, 62030-8 ####CRISTOBAL COUNTS INCLUDE 234 [facility]S AT [facility] LABCLIA [id number] [address] OF [facility] Cholesterol in LDL [Mass/Vol] 175 mg/dL High <100 [facility] Comment on above: Order Comment: Tessa flores Type: BLOOD SPECIMENOrdering Facility: [facility] Address: [address] [place] [address] Result Comment: <100 mg/dL, Optimal 100-129 mg/dL, Near optimal/above optimal 130-159 mg/dL, Borderline high 160-189 mg/dL, High >189 mg/dL, Very high Secondary prevention optimal LDL Cholesterol levels are recommended to be < 70 mg/dL Performed By: #### L KIERRAB, 76722-6 ####CRISTOBAL COUNTS INCLUDE 234 BEDS AT [facility] LABCLIA [id number] [address] [id number] [facility] Cholesterol in LDL/Cholesterol in HDL [Mass ratio] 4.73 {ratio} High <2.54 [facility] Comment on above: Order Comment: Speci men Type: BLOOD SPECIMENOrdering Facility: [facility] Address: [address] [place] [address] Result Comment: Refe rence: 1. National Cholesterol Education Program ATP III Guideline At-A-Glance Quick Desk Reference: National Heart, Lung, and Blood [place]. National Institutes of Health. 2001: NIH Publication No. 01-3305. 2. An International Atherosclerosis Society position paper: global recommendations for the management of dyslipidemia: executive summary, Atherosclerosis. 2014: 232(2):410-413. Performed By: #### L KIERRAB, 16326-3 ####[facility] CENTERRaheem COUNTS INCLUDE 234 BEDS AT [facility] LABCLIA [id number] [place] [id number] [place] Cholesterol in VLDL [Mass/Vol] 28 mg/dL Normal <30 [facility] Comment on above: Order Comment: Tessa flores Type: BLOOD SPECIMENOrdering Facility: [facility] Address: [address] [place] [address] Performed By: #### L FILIPE, 73349-7 ####CRISTOBAL COUNTS INCLUDE 234 BEDS AT [facility] LABCLIA [id number] [place] [address] [place] Cholesterol non HDL [Mass/Vol] 203 mg/dL High <130 [facility] Comment on above: Order Comment: Selmai men Type: BLOOD SPECIMENOrdering Facility: [facility] Address: [address] [place] [address] Result Comment: <130 mg/dL, Optimal 130-159 mg/dL, Near optimal/above optimal 160-189 mg/dL, Borderline high 190-219 mg/dL, High >219 mg/dL, Very high Secondary prevention optimal non HDL Cholesterol levels are recommended to be <100 mg/dL Performed By: #### L IPB, 27310-7 ####AMHORALIA COUNTS INCLUDE 234 BEDS AT [facility] LABCLIA [id number] [address] [id number] [place] Cholesterol.total/Ch olesterol in HDL [Mass ratio] 6.49 {ratio} High <5.10 [facility] Comment on above: Order Comment: Speci men Type: BLOOD SPECIMENOrdering Facility: [facility] Address: [address] [place] [address] Performed By: #### L FILIPE, 67115-5 ####CRISTOBAL COUNTS INCLUDE 234 BEDS AT [facility] LABCLIA [id number] [address] [id number] [facility] OF [place] FASTING TIME 12. hrs Normal [facility] Comment on above: Order Comment: Speci men Type: BLOOD SPECIMENOrdering Facility: [facility] Address: [address] [place] [address] Performed By: #### Natalie DENT, 07016-5 ####[facility] CENTERRaheem COUNTS INCLUDE 234 BEDS AT [facility] LABIA [id number] [address] [place] Triglyceride [Mass/Vol] 140 mg/dL Normal <150 [facility] Comment on above: Order Comment: Speci men Type: BLOOD SPECIMENOrdering Facility: [facility] Address: [address] [place] [address] Result Comment: <150 mg/dL, Normal 150-199 mg/dL, Borderline high 200-499 mg/dL, High >499 mg/dL, Very high Performed By: #### L FILIPE, 03890-3 ####[facility]OSPITALRaheem COUNTS INCLUDE 234 BEDS AT [facility] LABIA [id number] [place] [address] [place] PSA/PROSTSPECAG SCRNon 07-29 Prostate specific Ag [Mass/Vol] 0.41 ng/mL Normal <2.60 [facility] Comment on above: Order Comment: Speci men Type: BLOOD SPECIMENOrdering Facility: [facility] Address: [address] [place] [address] Result Comment: Tota l PSA test methodology used is the Electrochemiluminescence Immunoassay by [employer]. Total PSA values by differing methodologies cannot be interchanged. Performed By: #### P SAS1 ####[facility] LABCLIA [id number] [address] [place] TSH SerPl-aCncon 07-29-2021 TSH Qn 4.060 m[IU]/L Normal 0.270-4.200 [facility] Comment on above: Order Comment: Speci men Type: BLOOD SPECIMENOrdering Facility: [facility] Address: [address] [place] [address] Performed By: #### 3 016-3 ####[facility] LABCLIA [id number] [address] [place] URINALYSIS, REFLEX MICROSCOP ICon 07-29-2021 Bilirubin Ql (U) Negative Normal Negative [facility] Comment on above: Order Comment: Speci men Type: URINE SPECIMEN [facility] Address: [address] [place] [address] Performed By: #### L [id number] #### [facility]PITALRaheem COUNTS INCLUDE 234 BEDS AT THE [facility] LAB CLIA [id number] [address] [place] [address] [place] Clarity (Unsp spec) Clear Normal Clear [facility] Comment on above: Order Comment: Speci men Type: URINE SPECIMEN [facility] Address: [address] [place] [address] Performed By: #### L [id number] #### [facility]PITALRaheem COUNTS INCLUDE 234 BEDS AT THE [facility] LAB CLIA [id number] [address] [place] [address] [place] [facility] Color (U) Yellow Normal Yellow [facility] Comment on above: Order Comment: Speci men Type: URINE SPECIMEN [facility] Address: [address] [place] [address] Performed By: #### L [id number] #### [facility] COUNTS INCLUDE 234 BEDS AT [facility] LAB CLIA [id number] [address] [place] [address] [place] Glucose Test strip (U) [Mass/Vol] Negative Normal Negative [facility] Comment on above: Order Comment: Speci men Type: URINE SPECIMEN [facility] Address: [address] [place] [address] Performed By: #### L [id number] #### [facility]ITALRaheem COUNTS INCLUDE 234 BEDS AT [facility] LAB CLIA [id number] [address] [place] [address] [place] Hemoglobin Ql (U) Negative Normal Negative [facility] Comment on above: Order Comment: Speci men Type: URINE SPECIMEN [facility] Address: [address] [place] [address] Performed By: #### L [id number] #### [facility]ITALRaheem COUNTS INCLUDE 234 BEDS AT [facility] LAB CLIA [id number] [address] [place] [address] [place] [facility] Ketones Ql (U) Negative Normal Negative [facility] Comment on above: Order Comment: Speci men Type: URINE SPECIMEN [facility] Address: [address] [place] [address] Performed By: #### L [id number] #### [facility]ITALRaheem COUNTS INCLUDE 234 BEDS AT [facility] LAB CLIA [id number] [address] [place] [address] [place] Leukocyte esterase Test strip Ql (U) Negative Normal Negative [facility] Comment on above: Order Comment: Speci men Type: URINE SPECIMEN [facility] Address: [address] [place] [address] Performed By: #### L [id number] #### [facility]ITALRaheem COUNTS INCLUDE 234 BEDS AT [facility] LAB CLIA [id number] [address] [place] [address] [place] Nitrite Ql (U) Negative Normal Negative [facility] Comment on above: Order Comment: Speci men Type: URINE SPECIMEN [facility] Address: [address] [place] [address] Performed By: #### L [id number] #### [facility] COUNTS INCLUDE 234 BEDS AT [facility] LAB CLIA [id number] [address] [place] [address] [place] pH (U) 5.5 [pH] Normal 5.0-8.0 [facility] Comment on above: Order Comment: Speci men Type: URINE SPECIMEN [facility] Address: [address] [place] [address] Performed By: #### L [id number] #### [facility]ITALRaheem COUNTS INCLUDE 234 BEDS AT [facility] LAB CLIA [id number] [address] [place] [address] [place] Protein (U) [Mass/Vol] Negative Normal Negative [facility] Comment on above: Order Comment: Speci men Type: URINE SPECIMEN [facility] Address: [address] [place] [address] Performed By: #### L [id number] #### [facility]ITALRaheem COUNTS INCLUDE 234 BEDS AT [facility] LAB CLIA [id number] [address] [place] [address] [place] Specific gravity (U) [Rel density] 1.025 Normal 1.005-1.030 [facility] Comment on above: Order Comment: Speci men Type: URINE SPECIMEN [facility] Address: [address] [place] [address] Performed By: #### L [id number] #### [facility]ITALRaheem COUNTS INCLUDE 234 BEDS AT [facility] LAB CLIA [id number] [address] [place] [address] [place] Urobilinogen Ql (U) 0.2 EU/dL Normal 0.2-1.0 EU/dL [facility] Comment on above: Order Comment: Speci men Type: URINE SPECIMEN [facility] Address: [address] [place] [address] Performed By: #### L [id number] #### [facility] COUNTS INCLUDE 234 BEDS AT [facility] LAB CLIA [id number] [address] [place], [place] [address] [place] VITAMIN D 25 HYDROXYon 07-29 25-hydroxyvitamin D3 [Mass/Vol] 29.1 ng/mL Low 31.0-80.0 [facility] Comment on above: Order Comment: Speci men Type: BLOOD SPECIMENOrdering Facility: [facility] Address: [address] [place] [id number] Result Comment: Clas sification of 25 [place] Vitamin D status: Deficiency/Insufficiency: < or = 30 ng/ml. Sufficiency/Optimal Levels: 31-80 ng/mL Toxicity: > 100 ng/mL. Test performed by chemiluminescent immunoassay. Performed By: #### V ITD ####[facility] LABCLIA [id number] [place] [address] [place] HISTORY PHYSICALon HISTORY PHYSICAL HNO ID: [id number] Author: Prisca Van PA-C Service: ? Author Type: Physician Deck Lid Fitter Type: HANDP Filed: 07/26/2021 1:52 PM Note Text: [facility] This is a virtual visit. It required patient-provider interaction for the medical decision making as documented below. Patient has been identified by name and date of : Yes Reason for call: PACC visit Accompanied by: Self Patient name: Nehal Baig Scheduled Surgery: colonoscopy 07/31/2021 at [place] CHIEF COMPLAINT: Patient presents with: Outpatient Colonoscopy [...] fevers. Neuro: No history of TIA's, stroke, INTERACTIVE PRODUCER tumor, impaired sensorium, hemiplegia, paraplegia or quadraplegia. No neurological symptoms or problems. Respiratory: No history of current cough or dyspnea, or pneumonia in the past 6 weeks. +asthma-uses Flovent daily, albuterol 3-5 times/week +JACOBY- BiPAP nightly +lung nodules Cardiovascular: No history of angina, CHF, [place], cardiac surgery or stents. Denies rest pain, [...] carotid puls (more content not included)... Normal [facility] CNOVon 07-[facility] NEHAL [facility] ([id number]) 1970 M Date Time Provider Department 07/25/21 9:20 AM SALOME AGUILLON [facility] During your visit today, we recorded the following information about you: Pulse Blood pressure Weight Height 88/minute 136/78 182.3 kg 1.854 m Salome Aguillon APRN.PHYSICAL THERAPY ASSISTANT 07/25/2021 5:32 PM Signed This note [...] or Coly (more content not included)... Normal [facility] Ramez 07-25-2021 RAKESH Telephone ([facility]) -- NEHAL BAIG ([id number]) 1970 M Date Time Provider Department 07/25/21 SALOME AGUILLON During your visit today, we recorded the following information about you: Beatriz Yung 07/25/2021 11:22 AM Signed [facility] states the Golytely is on backorder. They have the Newlytely in stock. Is it OK to substitute? Please advise. [phone]. Beatriz Cowan July 25, 2021 11:22 AM [...] Date Reviewed: 07/25/2021 Reviewed by: Salome Aguillon APRN.ELODAN - Fully Assessed Reason for Visit: Medication [...] Status:Closed by SALOME AGUILLON on 07/25/21 Normal [facility] CT CHEST WO IVCONon 02-14-20 Radiology Result ACTIONABLE Abnormal [facility] Basic Metab w/rfx MGon 08-02 (cont.) Normal [facility] Comment on above: Result Comment: Aver age GFR for 40-49 years old: 99 mL/min/1.73sq m Chronic Kidney Disease: <60 mL/min/1.73sq m Kidney failure: <15 mL/min/1.73sq m eGFR calculated using average adult body mass. Additional eGFR calculator available at: http://www.Button.com/multiple_crcl_2011.htm Performed By: #### C AXEL, BMPX ####[id number] [place] [address] lab Director: Nate Stafford MD Anion gap [Moles/Vol] 11 mmol/L Normal - [facility] Comment on above: Performed By: #### C BC, BMPX ####[facility] [address] [place], [place] [phone] Director: Nate Stafford MD Calcium [Mass/Vol] 8.5 mg/dL Low 8.6-10.4 [facility] Comment on above: Performed By: #### C BC, BMPX ####[facility] [address] [place], [place] [phone] Director: Nate Stafford MD Chloride [Moles/Vol] 101 mmol/L Normal 98-[address] [facility] Comment on above: Performed By: #### C BC, BMPX ####[facility] [address] [place], [place] [phone] Director: Nate Stafford MD CO2 [Moles/Vol] 23 mmol/L Normal 20-31 [facility] Comment on above: Performed By: #### C BC, BMPX ####[facility] [address] [place], [place] [phone] Director: Nate Stafford MD Creatinine [Mass/Vol] 0.62 mg/dL Low 0.70-1.20 [facility] Comment on above: Performed By: #### C BC, BMPX ####[facility] [address] [place], [place] [phone] Director: Nate Stafford MD GFR, Amer >60 Normal >60 [facility] Comment on above: Performed By: #### C BC, BMPX ####[facility] [address] [place], [place] [phone] Director: Nate Stafford MD GFR,non Amer >60 Normal >[address] [facility] Comment on above: Performed By: #### C BC, BMPX ####[facility] [address] [place], [place] [phone] Director: Nate Stafford MD Glucose [Mass/Vol] 120 mg/dL High 70-99 [facility] Comment on above: Performed By: #### C BC, BMPX ####[facility] [address] [place], [place] [phone] Director: Nate Stafford MD Potassium [Moles/Vol] 4.3 mmol/L Normal 3.7-5.3 [facility] Comment on above: Performed By: #### C BC, BMPX ####[facility] [address] [place], [place] [phone] Director: Nate Stafford MD Sodium [Moles/Vol] 135 mmol/L Normal 135-144 [facility] Comment on above: Performed By: #### C BC, BMPX ####[facility] [address] [place], [place] [phone] Director: Nate Stafford MD Urea nitrogen [Mass/Vol] 14 mg/dL Normal 6-20 [facility] Comment on above: Performed By: #### C BC, BMPX ####[facility] [address] [place], [place] [phone] Director: Nate Stafford MD BUN/CRE Ratio NOT REPORTED Normal -20 [facility] Comment on above: Performed By: #### C BC, BMPX ####[facility] [address] [place], [place] [phone] Director: Nate Stafford MD Staging: NOT REPORTED Normal [facility] Comment on above: Performed By: #### C BC, BMPX ####[facility] [address] [place], [place] [phone] Director: Nate Stafford MD Basic Metabolic Panel w/ Ref johnny to MGOrdered By: Halina Pathak on 08-02-2020 Anion gap [Moles/Vol] 11 mmol/L 9 - 17 mmol/L [facility] [employer] Phone: Calcium [Mass/Vol] 8.5 mg/dL Low 8.6 - 10. 4 mg/dL [employer] Phone: Chloride [Moles/Vol] 101 mmol/L 98 - 10 7 mmol/L [employer] Phone: CO2 [Moles/Vol] 23 mmol/L 20 - 31 mmol/L [employer] Phone: Creatinine [Mass/Vol] 0.62 mg/dL Low 0.70 - 1.20 mg/dL [employer] Phone: GFR >60 >60 mL/min [employer] Phone: GFR Non- >60 >60 mL/min [employer] Phone: GFR/1.73 sq M.predicted MDRD (S/P/Bld) [Vol rate/Area] [employer] Phone: Comment on above: Average GFR for 40-4 9 years old: 99 mL/min/1.73sq m Chronic Kidney Disease: <60 mL/min/1.73sq m Kidney failure: <15 mL/min/1.73sq m eGFR calculated using average adult body mass. Additional eGFR calculator available at: http://www.[employer]x/multiple_crcl_2012.htm GFR/1.73 sq M.predicted MDRD (S/P/Bld) [Vol rate/Area] NOT REPORTED [employer] Phone: Glucose [Mass/Vol] 120 mg/dL High 70 - 99 mg/dL [employer] Phone: Interpretation and review of laboratory results Abnormal [employer] Phone: Potassium [Moles/Vol] 4.3 mmol/L 3.7 - 5.3 mmol/L [employer] Phone: Sodium [Moles/Vol] 135 mmol/L 135 - 144 mmol/L [employer] Phone: Urea nitrogen (BldV) [Mass/Vol] 14 mg/dL 6 - 20 mg/dL [employer] Phone: Urea nitrogen/Creatinine (Bld) [Mass ratio] NOT REPORTED [employer] Phone: CBCon 08-02-2020 Erythrocyte distribution width (RBC) [Ratio] 13.0 % Normal 11.8-14.4 [facility] Comment on above: Performed By: #### C BC, BMPX ####[facility] [address] [place] [address] Lab Director: Nate Stafford MD Hematocrit (Bld) [Volume fraction] 41.8 % Normal 40.7-50.3 [facility] Comment on above: Performed By: #### C BC, BMPX ####[facility] [address] [place] [address] Lab Director: Nate Stafford MD Hemoglobin (Bld) [Mass/Vol] 13.8 g/dL Normal 13.0-17.0 [facility] Comment on above: Performed By: #### C BC, BMPX ####[facility] [address] [place] [address] Lab Director: Nate Stafford MD MCH (RBC) [Entitic mass] 29.3 pg Normal 25.2-33.5 [facility] Comment on above: Performed By: #### C BC, BMPX ####[facility] [address] [place], [place] [phone] Director: Nate Stafford MD MCHC (RBC) [Mass/Vol] 33.0 g/dL Normal 28.4-34.8 [facility] Comment on above: Performed By: #### C BC, BMPX ####[facility] [address] [place], [place] [phone] Director: Nate Stafford MD MCV (RBC) [Entitic vol] 88.7 fL Normal 82.6-102.9 [facility] Comment on above: Performed By: #### C BC, BMPX ####[facility] [address] [place], [place] [phone] Director: Nate Stafford MD NRBC Automated 0.0 per 100 WBC Normal 0.0 [facility] Comment on above: Performed By: #### C BC, BMPX ####[facility] [address] [place], [place] [phone] Director: Nate Stafford MD Platelet mean volume (Bld) [Entitic vol] 10.9 fL Normal 8.1-13.5 [facility] Comment on above: Performed By: #### C BC, BMPX ####[facility] [place] [address] [place], [place] [address])[phone] Director: Nate Stafford MD Platelets (Bld) [#/Vol] 221 10*3/uL Normal 138-453 [facility] Comment on above: Performed By: #### C BC, BMPX ####[facility] [address] [place], [place] [address])[phone] Director: Nate Stafford MD RBC (Bld) [#/Vol] 4.71 10*6/uL Normal 4.21-5.77 [facility] Comment on above: Performed By: #### C BC, BMPX ####[facility] [address] [place], [place] [address])[phone] Director: Nate Stafford MD WBC (Bld) [#/Vol] 10.6 10*3/uL Normal 3.5-11.3 [facility] Comment on above: Performed By: #### C BC, BMPX ####[facility] [address] [place], [place] [phone] Director: Nate Stafford MD CBCOrdered By: Halina Pathak on 08-02-2020 Hematocrit (Bld) [Volume fraction] 41.8 % 40.7 - 50.3 % [employer] Phone: Hemoglobin.gastroint estinal spec 1 Ql (Stl) 13.8 g/dL 13.0 - 17.0 g/dL [employer] Phone: MCH (RBC) [Entitic mass] 29.3 pg 25.2 - 33.5 pg [employer] Phone: MCHC (RBC) [Mass/Vol] 33.0 g/dL 28.4 - 34.8 g/dL [employer] Phone: MCV (RBC) [Entitic vol] 88.7 fL 82.6 - 102.9 fL [employer] Phone: NRBC Automated 0.0 0.0 per 100 WBC [employer] Phone: Platelet distribution width (Bld) [Ratio] 13.0 % 11.8 - 14.4 % [employer] Phone: Platelet mean volume (Bld) [Entitic vol] 10.9 fL 8.1 - 13.5 fL [employer] Phone: Platelets (Bld) [#/Vol] 221 10*3/uL [employer] Phone: RBC (Bld) [#/Vol] 4.71 10*6/uL 4.21 - 5.7 7 m/uL [employer] Phone: WBC (Bld) [#/Vol] 10.6 10*3/uL [employer] Phone: Trauma Profileon 08-02-2020 (cont.) Normal [facility] Comment on above: Result Comment: Aver age GFR for 40-49 years old: 99 mL/min/1.73sq m Chronic Kidney Disease: <60 mL/min/1.73sq m Kidney failure: <15 mL/min/1.73sq m eGFR calculated using average adult body mass. Additional eGFR calculator available at: http://www.globalrph.com/multiple_crcl_2012.htm Performed By: #### E RTPF, TROPI ####[facility] [address] [place], [place] [phone])[phone] Director: Nate Stafford MD Anion gap [Moles/Vol] 10 mmol/L Normal 9-17 [facility] Comment on above: Performed By: #### E RTPF, TROPI ####[facility] [address] [place], [place] [phone] Director: Nate Stafford MD Chloride [Moles/Vol] 100 mmol/L Normal 98-[address] [facility] Comment on above: Performed By: #### E RTPF, TROPI ####[facility] [address] [place], [place] [address])[phone] Director: Nate Stafford MD CO2 [Moles/Vol] 24 mmol/L Normal 20-31 [facility] Comment on above: Performed By: #### E RTPF, TROPI ####[facility] [address] [place], [place] [phone] Director: Nate Stafford MD Creatinine [Mass/Vol] 0.71 mg/dL Normal 0.70-1.20 [facility] Comment on above: Performed By: #### E RTPF, TROPI ####[facility] [address]fr[address] [place], [place] [phone] Director: Nate Stafford MD Ethanol [Mass/Vol] mg/dL Normal <10 [facility] Comment on above: Performed By: #### E RTPF, TROPI ####[facility] [address]ams[address] [place], [place] [phone] Director: Nate Stafford MD Ethanol percent <0.010 Normal <0.010 [facility] Comment on above: Performed By: #### E RTPF, TROPI ####[facility] [address] [place] [address] Lab Director: Nate Stafford MD GFR, Amer >60 Normal >60 [facility] Comment on above: Performed By: #### E RTPF, TROPI ####[facility] [address]d25[address] [place] [address] Lab Director: Nate Stafford MD GFR,non Amer >60 Normal >[address] [facility] Comment on above: Performed By: #### E RTPF, TROPI ####[facility] [address] [place] [address] Lab Director: Nate Stafford MD Glucose [Mass/Vol] 109 mg/dL High 70-99 [facility] Comment on above: Performed By: #### E RTPF, TROPI ####[facility] [address] [place] [address] Lab Director: Nate Stafford MD Potassium [Moles/Vol] 4.2 mmol/L Normal 3.7-5.3 [facility] Comment on above: Performed By: #### E RTPF, TROPI ####[facility] [address] [place], [place] [phone] Director: Nate Stafford MD Sodium [Moles/Vol] 134 mmol/L Low 135-144 [facility] Comment on above: Performed By: #### E RTPF, TROPI ####[facility] [address] [place] [address] Lab Director: Nate Stafford MD Urea nitrogen [Mass/Vol] 15 mg/dL Normal 6-20 [facility] Comment on above: Performed By: #### E RTPF, TROPI ####[facility] [address] [place], [place] [phone])[phone] Director: Nate Stafford MD Troponinon 08-02-2020 Troponin, High Sens 6 ng/L Normal 0-22 [facility] Comment on above: Result Comment: High Sensitivity Troponin values cannot be compared with other Troponin methodologies. Patients with high levels of Biotin oral intake (i.e >5mg/day) may have falsely decreased Troponin levels. Samples collected within 8 hours of biotin intake may require additional information for diagnosis. Performed By: #### E RTPF, TROPI ####[address] [place] [address] lab Director: Nate Stafford MD Type + Screenon 08-02-2020 Type + Screen Sample Expiration 08/04/2020,2359 Arm Band Number BE [id number] ABO/Rh(D) A NEGATIVE Antibody Screen NEGATIVE Normal [facility] Comment on above: Performed By: #### T YS ####[facility] [place] [address] lab Director: Nate Stafford MD CT CERVICAL [...] Johnny Smalls MD 08/01/20 Final result Normal [facility] CT CERVICAL SPINE WO CONTRAS TOrdered By: Ronnie Lund on 08-01-2020 C6-7 cervical spondy losis and degenerative disc disease. Evidence of paracervical spasm. No acute bony abnormalities are noted [employer] Phone: EXAMINATION: CT OF T HE CERVICAL [...] intact. The visualized lung apices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 Outreach 06/27/2021 BP, colo Reason Comments Medication Problem Reason Comments Rx Refills Reason Comments Outpatient Colonoscopy Reason Comments Physical colonoscopy result Reason Comments New Patient [place] Obesity Specialty Diagnoses / Procedures Referred By Contac t Referred To Contact Diagnoses Morbid obesity with BMI of 50.0-59.9, adult (HCC) Procedures ENDOCRINE MEDICAL WEIGHT MANAGEMENT OFFICE/OUTPATIENT [facility] 60-74 MINUTES Salome Aguillon APRN.PHYSICAL THERAPY ASSISTANT [address] [place] [address] Referral ID Status Reason Start Date Expiration Date Visits Requested Visits Authorized [id number] Pending Review PCP Requested Referral 08/10/2021 08/10/2022 1 1 Reason Comments Patient Education Assessment Specialty Diagnoses / Procedures Referred By Contac t Referred To Contact Nutrition Diagnoses Morbid obesity with BMI of 50.0-59.9, adult (HCC) Mixed hyperlipidemia Essential hypertension Arthralgia of multiple sites Prediabetes Obstructive sleep apnea syndrome Abnormal weight gain Fatty metamorphosis of liver Procedures CONSULT TO NUTRITION THERAPY OFFICE/OUTPATIENT [facility] 60-74 MINUTES Anh Mena MD [address] [facility], [address] [place] [address] Referral ID Status Reason Start Date Expiration Date Visits Requested Visits Authorized [id number] Pending Review PCP Requested Referral 08/15/2021 11/13/2021 1 1 Reason Comments Medical Weight Management Specialty Diagnoses / Procedures Referred By Contac t Referred To Contact CT IMAGING Diagnoses Lung nodules Procedures CT CHEST WO IVCON CAT SCAN OF CHEST Trey Sharma MD [address] [address] [address] Imaging Referral ID Status Reason Start Date Expiration Date V isits Requested Visits Authorized [id number] Closed Auto-Generate d Referral 08/11/2021 04/29/2022 1 [...] section and content) DATE CREATED AUTHOR 08/08/2020 [facility] DATE CREATED AUTHOR AUTHOR'S ORGANIZ ATION 08/01/2021 [facility] DATE CREATED AUTHOR AUTHOR'S ORGANIZ ATION 09/21/2021 [facility] DATE CREATED AUTHOR AUTHOR'S ORGANIZ ATION 04/25/2022 [facility] DATE CREATED AUTHOR AUTHOR'S ORGANIZ ATION 05/27/2022 [facility] DATE CREATED AUTHOR AUTHOR'S ORGANIZ ATION 05/31/2022 [facility] DATE CREATED AUTHOR AUTHOR'S ORGANIZ ATION 04/26/2023 [facility] DATE CREATED AUTHOR AUTHOR'S ORGANIZ ATION 06/18/2023 [facility] DATE CREATED AUTHOR AUTHOR'S ORGANIZ ATION 06/21/2023 [facility] DATE CREATED AUTHOR AUTHOR'S ORGANIZ ATION 08/04/2023 [facility] DATE CREATED AUTHOR AUTHOR'S ORGANIZ ATION 08/08/2023 [facility] DATE CREATED AUTHOR AUTHOR'S ORGANIZ ATION 08/16/2023 [facility] Source Comments (unrecognize d section and content) In the event this informatio n is protected by the Federal Confidentiality of Alcohol and Drug Abuse Patient Records regulations: The Federal rules restrict any use of the information to criminally investigate or prosecute any alcohol or drug abuse patient.[facility] the event this information is protected by the Federal Confidentiality of Alcohol and Drug Abuse Patient Records regulations: The Federal rules restrict any use of the information to criminally investigate or prosecute any alcohol or drug abuse patient.[facility] the event this information is protected by the Federal Confidentiality of Alcohol and Drug Abuse Patient Records regulations: The Federal rules restrict any use of the information to criminally investigate or prosecute any alcohol or drug abuse patient.[facility] the event this information is protected by the Federal Confidentiality of Alcohol and Drug Abuse Patient Records regulations: The Federal rules restrict any use of the information to criminally investigate or prosecute any alcohol or drug abuse patient.[facility] the event this information is protected by the Federal Confidentiality of Alcohol and Drug Abuse Patient Records regulations: The Federal rules restrict any use of the information to criminally investigate or prosecute any alcohol or drug abuse patient.[facility] ClinicIn the event this information is protected by the Federal Confidentiality of Alcohol and Drug Abuse Patient Records regulations: The Federal rules restrict any use of the information to criminally investigate or prosecute any alcohol or drug abuse patient.[facility] ClinicIn the event this information is protected by the Federal Confidentiality of Alcohol and Drug Abuse Patient Records regulations: The Federal rules restrict any use of the information to criminally investigate or prosecute any alcohol or drug abuse patient.[facility] ClinicIn the event this information is protected by the Federal Confidentiality of Alcohol and Drug Abuse Patient Records regulations: The Federal rules restrict any use of the information to criminally investigate or prosecute any alcohol or drug abuse patient.[facility] ClinicIn the event this information is protected by the Federal Confidentiality of Alcohol and Drug Abuse Patient Records regulations: The Federal rules restrict any use of the information to criminally investigate or prosecute any alcohol or drug abuse patient.[facility] ClinicIn the event this information is protected by the Federal Confidentiality of Alcohol and Drug Abuse Patient Records regulations: The Federal rules restrict any use of the information to criminally investigate or prosecute any alcohol or drug abuse patient.[facility] ClinicIn the event this information is protected by the Federal Confidentiality of Alcohol and Drug Abuse Patient Records regulations: The Federal rules restrict any use of the information to criminally investigate or prosecute any alcohol or drug abuse patient.[facility] ClinicIn the event this information is protected by the Federal Confidentiality of Alcohol and Drug Abuse Patient Records regulations: The Federal rules restrict any use of the information to criminally investigate or prosecute any alcohol or drug abuse patient.[facility] ClinicIn the event this information is protected by the Federal Confidentiality of Alcohol and Drug Abuse Patient Records regulations: The Federal rules restrict any use of the information to criminally investigate or prosecute any alcohol or drug abuse patient.[facility] ClinicIn the event this information is protected by the Federal Confidentiality of Alcohol and Drug Abuse Patient Records regulations: The Federal rules restrict any use of the information to criminally investigate or prosecute any alcohol or drug abuse patient.[facility] ClinicIn the event this information is protected by the Federal Confidentiality of Alcohol and Drug Abuse Patient Records regulations: The Federal rules restrict any use of the information to criminally investigate or prosecute any alcohol or drug abuse patient.[facility] ClinicIn the event this information is protected by the Federal Confidentiality of Alcohol and Drug Abuse Patient Records regulations: The Federal rules restrict any use of the information to criminally investigate or prosecute any alcohol or drug abuse patient.[facility] ClinicIn the event this information is protected by the Federal Confidentiality of Alcohol and Drug Abuse Patient Records regulations: The Federal rules restrict any use of the information to criminally investigate or prosecute any alcohol or drug abuse patient.[facility] ClinicIn the event this information is protected by the Federal Confidentiality of Alcohol and Drug Abuse Patient Records regulations: The Federal rules restrict any use of the information to criminally investigate or prosecute any alcohol or drug abuse patient.[facility] ClinicIn the event this information is protected by the Federal Confidentiality of Alcohol and Drug Abuse Patient Records regulations: The Federal rules restrict any use of the information to criminally investigate or prosecute any alcohol or drug abuse patient.[facility] ClinicIn the event this information is protected by the Federal Confidentiality of Alcohol and Drug Abuse Patient Records regulations: The Federal rules restrict any use of the information to criminally investigate or prosecute any alcohol or drug abuse patient.[facility] ClinicIn the event this information is protected by the Federal Confidentiality of Alcohol and Drug Abuse Patient Records regulations: The Federal rules restrict any use of the information to criminally investigate or prosecute any alcohol or drug abuse patient.[facility] ClinicIn the event this information is protected by the Federal Confidentiality of Alcohol and Drug Abuse Patient Records regulations: The Federal rules restrict any use of the information to criminally investigate or prosecute any alcohol or drug abuse patient.[facility] ClinicIn the event this information is protected by the Federal Confidentiality of Alcohol and Drug Abuse Patient Records regulations: The Federal rules restrict any use of the information to criminally investigate or prosecute any alcohol or drug abuse patient.[facility] ClinicIn the event this information is protected by the Federal Confidentiality of Alcohol and Drug Abuse Patient Records regulations: The Federal rules restrict any use of the information to criminally investigate or prosecute any alcohol or drug abuse patient.[facility] ClinicIn the event this information is protected by the Federal Confidentiality of Alcohol and Drug Abuse Patient Records regulations: The Federal rules restrict any use of the information to criminally investigate or prosecute any alcohol or drug abuse patient.[facility] ClinicIn the event this information is protected by the Federal Confidentiality of Alcohol and Drug Abuse Patient Records regulations: The Federal rules restrict any use of the information to criminally investigate or prosecute any alcohol or drug abuse patient.[facility] ClinicIn the event this information is protected by the Federal Confidentiality of Alcohol and Drug Abuse Patient Records regulations: The Federal rules restrict any use of the information to criminally investigate or prosecute any alcohol or drug abuse patient.[facility] ClinicIn the event this information is protected by the Federal Confidentiality of Alcohol and Drug Abuse Patient Records regulations: The Federal rules restrict any use of the information to criminally investigate or prosecute any alcohol or drug abuse patient.[facility] ClinicIn the event this information is protected by the Federal Confidentiality of Alcohol and Drug Abuse Patient Records regulations: The Federal rules restrict any use of the information to criminally investigate or prosecute any alcohol or drug abuse patient.[facility] ClinicIn the event this information is protected by the Federal Confidentiality of Alcohol and Drug Abuse Patient Records regulations: The Federal rules restrict any use of the information to criminally investigate or prosecute any alcohol or drug abuse patient.[facility] Care Teams (unrecognized sec tion and content) Distance Learning Technician Relationship Specialty Start Date End Date Salome Aguillon, COMFORT FILLER.PHYSICAL THERAPY ASSISTANT [address] [place] [address] PCP - General Family Practice 11/23/19 Distance Learning Technician Relationship Specialty Start Date End Date Salome Aguillon, COMFORT FILLER.PHYSICAL THERAPY ASSISTANT [address] [place] [address] PCP - General Family Practice 11/23/19 Distance Learning Technician Relationship Specialty Start Date [facility] COMFORT FILLER.PHYSICAL THERAPY ASSISTANT [address] [place] [address] PCP - General Family Practice 11/23/19 Distance Learning Technician Relationship Specialty Start Date End Date [facility] COMFORT FILLER.PHYSICAL THERAPY ASSISTANT [address] [place] [address] PCP - General Family Practice 11/23/19 Distance Learning Technician Relationship Specialty Start Date End Date [facility] COMFORT FILLER.PHYSICAL THERAPY ASSISTANT [address] [place] [address] PCP - General Family Practice 11/23/19 Distance Learning Technician Relationship Specialty Start Date End [facility] COMFORT FILLER.PHYSICAL THERAPY ASSISTANT [address] [place] [address] PCP - General Family Practice 11/23/19 Distance Learning Technician Relationship Specialty Start Date End Date [facility] COMFORT FILLER.PHYSICAL THERAPY ASSISTANT [address] [place] [address] PCP - General Family Practice 11/23/19 Distance Learning Technician Relationship Specialty Start Date End Date [facility] COMFORT FILLER.PHYSICAL THERAPY ASSISTANT [address] [place] [address] PCP - General Family Practice 11/23/19 Distance Learning Technician Relationship Specialty Start Date End Date [facility] COMFORT FILLER.PHYSICAL THERAPY ASSISTANT [address] [facility] [address] PCP - General Family Practice 11/23/19 Distance Learning Technician Relationship Specialty Start Date End Date [facility] COMFORT FILLER.PHYSICAL THERAPY ASSISTANT [address] [place] [address] PCP - General Family Practice 11/23/19 Distance Learning Technician Relationship Specialty Start Date End Date Salome Aguillon, COMFORT FILLER.PHYSICAL THERAPY ASSISTANT [address] [place] [address] PCP - General Family Practice 11/23/19 Distance Learning Technician Relationship Specialty Start Date End Date Salome Aguillon, COMFORT FILLER.PHYSICAL THERAPY ASSISTANT [address] [place] [address] PCP - General Family Practice 11/23/19 Distance Learning Technician Relationship Specialty Start Date End Date Salome Aguillon, COMFORT FILLER.PHYSICAL THERAPY ASSISTANT [address] [place] [address] PCP - General Family Practice 11/23/19 Distance Learning Technician Relationship Specialty Start Date End Date Salome alarcon, COMFORT FILLER.PHYSICAL THERAPY ASSISTANT [address] [place] [address] PCP - General Family Practice 11/23/19 Distance Learning Technician Relationship Specialty Start Date End Date Salome Aguillon, COMFORT FILLER.PHYSICAL THERAPY ASSISTANT [address] [facility] [address] PCP - General Family Practice 11/23/19 Distance Learning Technician Relationship Specialty Start Date End Date Salome Aguillon, COMFORT FILLER.PHYSICAL THERAPY ASSISTANT [address] [place] [address] PCP - General Family Medicine 11/23/19 Distance Learning Technician Relationship Specialty Start Date End Date Salome Aguillon, COMFORT FILLER.PHYSICAL THERAPY ASSISTANT [address] [place] [address] PCP - General Family Medicine 11/23/19 Distance Learning Technician Relationship Specialty Start Date End Date Salome Aguillon, COMFORT FILLER.PHYSICAL THERAPY ASSISTANT [address] [place] [address] PCP - General Family Medicine 11/23/19 Distance Learning Technician Relationship Specialty Start Date End Date Salome Aguillon, COMFORT FILLER.PHYSICAL THERAPY ASSISTANT [address] [place] [address] PCP - General Family Medicine 11/23/19 Distance Learning Technician Relationship Specialty Start Date End Date Salome Aguillon, COMFORT FILLER.PHYSICAL THERAPY ASSISTANT [address] [place] [address] PCP - General Family Medicine 11/23/19 Distance Learning Technician Relationship Specialty Start Date End Date Salome Aguillon, COMFORT FILLER.PHYSICAL THERAPY ASSISTANT [address] [place] [address] PCP - General Family Medicine 11/23/19 Distance Learning Technician Relationship Specialty Start Date End Date Salome Aguillon, COMFORT FILLER.PHYSICAL THERAPY ASSISTANT [address] [place] [address] PCP - General Family Medicine 11/23/19 Distance Learning Technician Relationship Specialty Start Date End Date Salome Aguillon, COMFORT FILLER.PHYSICAL THERAPY ASSISTANT [address] [place] [address] PCP - General Family Medicine 11/23/19 Distance Learning Technician Relationship Specialty Start Date End Date Salome Aguillon, COMFORT FILLER.PHYSICAL THERAPY ASSISTANT [address] [place] [address] PCP - General Family Medicine 11/23/19 Distance Learning Technician Relationship Specialty Start Date End Date Salome Aguillon, COMFORT FILLER.PHYSICAL THERAPY ASSISTANT [address] [place] [address] PCP - General Family Medicine 11/23/19 Distance Learning Technician Relationship Specialty Start Date End Date Salome Aguillon, COMFORT FILLER.PHYSICAL THERAPY ASSISTANT [address] [place] [address] PCP - General Family Medicine 11/23/19 Distance Learning Technician Relationship Specialty Start Date End Date Salome Aguillon, COMFORT FILLER.PHYSICAL THERAPY ASSISTANT [address] [place] [address] PCP - General Family Medicine 11/23/19 Team Status: Active Member Role Status Dates Vonnie Guerrero , GUEST SERVICES ATTENDANT-C Primary Care Provider Active Team Status: Inactive Member Role Status Dates Vonnie Guerrero , GUEST SERVICES ATTENDANT-C Primary Care Provider Active Siri Quezada NP-C Attending Provider Active Team Status: Inactive Member Role Status Dates Salome Aguillon GUEST SERVICES ATTENDANT-C Primary Care Provider Acti tyler Yi NP-C Attending Provider Active Team Status: Inactive Member Role Status Dates Salome Aguillon , GUEST SERVICES ATTENDANT-C Primary Care Provider Acti ve Siri Quezada , GUEST SERVICES ATTENDANT-C Attending Provider Active Team Status: Inactive Member Role Status Dates Huan Cowan DO Attending Provider Active Team Status: Active Member Role Status Dates Vonnie Guerrero , GUEST SERVICES ATTENDANT-C Primary Care Provider Active Siri Quezada GUEST SERVICES ATTENDANT-C Attending Provider Active Team Status: Active Member Role Status Dates PHYSICIAN NO FAMILY Primary Care Provider Active Team Status: Inactive Member Role Status Dates PHYSICIAN NO FAMILY Primary Care Provider Active Start: June 11, 2023 End: June 11, 2023 Siri Quezada NP-C Attending Provider Active Start: June 11, 2023 End: June 11, 2023 Goals (unrecognized section and content) Goals may [...] BE BASED ON THE PRIMARY CLINICAL RECORDS. [employer] provides no warranty or guarantee of the accuracy or completeness of information in this document.
[2023-08-17 08:27] LABS: Basophils Percent Auto 0.5 % (0.2-2.0); Eosinophils Absolute Auto 0.2 10^3/uL (0.0-0.7); Eosinophils Percent Auto 3.4 % (0.9-7.0); Hematocrit 36.2 % (42.0-54.0); Hemoglobin 11.1 g/dL (14.0-18.0); Immature Granulocytes Abs Auto 0.01 10^3/uL (0.00-0.03); Immature Granulocytes Pct Auto 0.2 % (0.0-0.5); Lymphocytes Absolute Auto 0.9 10^3/uL (1.2-3.8); Lymphocytes Percent Auto 15.8 % (20.5-60.0); Mean Corpuscular HGB Conc 30.7 g/dL (29.9-35.2); Mean Corpuscular Hemoglobin 25.1 pg (25.9-34.0); Mean Corpuscular Volume 81.9 fL (80.0-94.0); Mean Platelet Volume 10.3 fL (9.5-13.5); Monocytes Absolute Auto 0.5 10^3/uL (0.3-0.8); Monocytes Percent Auto 8.3 % (1.7-12.0); Neutrophils Percent Auto 71.8 % (43.0-75.0); Platelet Count 240 10^3/uL (150-450); Red Blood Count 4.42 10^6/uL (4.70-6.10); Red Cell Distribution Width 14.1 % (11.0-15.0); White Blood Count 5.5 10^3/uL (4.0-11.0)
[2023-08-17 08:51] LABS: Erythrocyte Sedimentation Rate 34 mm/hr (<=20)
[2023-08-17 12:52] LABS: Alanine Aminotransferase 15 U/L (16-63); Albumin Level 3.7 g/dL (3.4-5.0); Alkaline Phosphatase 91 U/L (46-116); Anion Gap 10.4; Aspartate Amino Transferase 15 U/L (15-37); BUN Creatinine Ratio 10.5; Bilirubin Total 0.4 mg/dL (0.2-1.0); Calcium 9.6 mg/dL (8.5-10.1); Carbon Dioxide 29.8 mmol/L (21.0-32.0); Chloride 102 mmol/L (98-107); Estimated GFR (African America >60 (>=60); Estimated GFR (Non-African Ame >60 (>=60); Globulin 3.8 g/dL; Glucose 107 mg/dL (74-106); Potassium 4.2 mmol/L (3.5-5.1); Sodium 138 mmol/L (136-145); Total Protein 7.5 g/dL (6.4-8.2)
== END 2023-08-17 08:02 | disposition home or self-care (01) ==
PROVIDERS: PCP Family Medicine; Visit Provider Internal Medicine Interventional Cardiology
DX: R05.3 Chronic cough (principal); I51.7 Cardiomegaly
CPT/HCPCS: 36415; 71046; 80053; 85025; 85652

== ENCOUNTER 2023-08-21 14:59 | Outpatient (OUT) | payer BC, SELFPAY ==
--- NOTE | 2023-08-21 15:38 | P.CN_ITS ---
Consult Note: HPI Data of Consult Patient: known to practice within the last 3 years Requesting Physician: Miya Batista NP Primary Care Provider: Demetrius Parish MD Consult Narrative Reason for consult: f/u Narrative: Pardeep Engel a pleasant 52 year old male presents for evaluation and management of chronic back pain. Patient failed to respond to greater than 6 weeks of PT/HEP, conservative medications. Lumbar xray consistent with degenerative changes, previously had significant improvement from bilateral L4/5 L5/S1 facet RFA however patient has had numerous ER visits and hospitalizations due to sepsis and pain, most recently patient had aortic valve replacement surgery as a result of infection. Patient now off of continuous IV antibiotics. Patient currently following with infectious disease and cardiothoracic surgery.. Patient currently utilizing baclofen 20mg TID, gabapentin 800mg AM and PM 400mg mid day, tylenol, lidocaine patches, norco 7.5-325mg BID-TID prn with benefit. Patient reporting pain in low back without radiculopathy 3/10 intermittent, increasing to moderate to severe with extended periods of activity. Lumbar pain and spasming. cc:: CC: Miya Batista NP [facility] Medical History Foot pain ?M79.673 - Pain in unspecified foot (ICD-10) Ankle pain ?M25.579 - Pain in unspecified ankle and joints of unspecified foot (ICD-10) Achilles tendinitis ?M76.60 - Achilles tendinitis, unspecified leg (ICD-10) Plantar fascial fibromatosis ?M72.2 - Plantar fascial fibromatosis (ICD-10) Migraine ?G43.909 - Migraine, unspecified, not intractable, without status migrainosus (ICD-10) GERD (gastroesophageal reflux disease) ?K21.9 - Gastro-esophageal reflux disease without esophagitis (ICD-10) Heartburn ?R12 - Heartburn (ICD-10) High cholesterol ?E78.00 - Pure hypercholesterolemia, unspecified (ICD-10) Calcaneal spur ?M77.30 - Calcaneal spur, unspecified foot (ICD-10) Strain of Achilles tendon ?S86.019A - Strain of unspecified Achilles tendon, initial encounter (ICD-10) Low back pain ?M54.50 - Low back pain, unspecified (ICD-10) Kidney stones ?N20.0 - Calculus of kidney (ICD-10) Sleep apnea ?G47.30 - Sleep apnea, unspecified (ICD-10) Hypertension ?I10 - Essential (primary) hypertension (ICD-10) Surgical History History of colonoscopy ?Z98.890 - Other specified postprocedural states (ICD-10) History of foot surgery ?Z98.890 - Other specified postprocedural states (ICD-10) H/O vasectomy (2014) ?Z98.52 - Vasectomy status (ICD-10) H/O shoulder replacement ?Z96.619 - Presence of unspecified artificial shoulder joint (ICD-10) History of carpal tunnel release ?Z98.890 - Other specified postprocedural states (ICD-10) Family History Grandmother Family history of CHF (congestive heart failure) Family history of COPD (chronic obstructive pulmonary disease) Mother Family history of COPD (chronic obstructive pulmonary disease) Family history of cancer Other Family history of lung cancer Social History Within the past year, how often did you have a drink containing alcohol: monthly or less Smoking status: Never smoker Non-prescribed substance use: denies use 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 Highest level of school completed/degree received: some college, no degree Are you now , , , , never or living with a partner: living with partner In a typical week, how many times do you talk on the telephone with family, friends, or neighbors: 3 or more times per week How often do you get together with friends or relatives: 3 or more times per week How often do you attend jehovah's witness or yazidism services: never Do you belong to any clubs or organizations such as jehovah's witness groups unions, fraternal or athletic groups, or school groups: no Total score: 2 Score interpretation: A score of greater than or equal to 2 indicates the lowest level of social isolation. Little interest or pleasure in doing things: not at all Feeling down, depressed, or hopeless: not at all Feel stressed/tense/nervous/anxious/difficulty sleeping: not at all Do you think of yourself as: straight/heterosexual Gender Identity: male Meds Home Medications and Allergies Home Medications ?Medication ?Instructions ?Recorded ?Confirmed ?Type acetaminophen 500 mg capsule 1,000 mg PO .Q12 PRN pain 01/28/23 06/20/23 History ibuprofen 200 mg tablet (I-Prin) 800 mg PO Q12H 01/28/23 06/20/23 History lisinopril 10 mg tablet 10 mg PO DAILY 01/28/23 06/20/23 History omeprazole 20 mg capsule,delayed 20 mg PO DAILY 01/28/23 06/20/23 History release aspirin 81 mg tablet,delayed 81 mg PO DAILY 02/24/23 06/20/23 History release (Adult Aspirin Regimen) cholecalciferol (vitamin D3) 25 2,000 unit PO DAILY 02/24/23 06/20/23 History mcg (1,000 unit) chewable tablet (V[employer]Joy Daily D) cyanocobalamin (vitamin B-12) 500 500 mcg PO DAILY 02/24/23 06/20/23 History mcg tablet (B-12 DOTS) magnesium 250 mg tablet 500 mg PO DAILY 03/04/23 06/20/23 History hydrocodone 7.5 mg-acetaminophen 1 tab PO TID PRN pain #21 tabs 05/30/23 06/20/23 Rx 325 mg tablet baclofen 10 mg tablet 10 mg PO BID 05/31/23 06/20/23 History vitamin B complex (B 1 tab PO DAILY 06/06/23 06/20/23 History Complex-Vitamin B12 tablet) naloxone 4 mg/actuation nasal 4 mg intranasal Q2M PRN opioid 06/12/23 06/20/23 Rx spray (Narcan) overdose #1 ea Allergies Allergy/AdvReac Type Severity Reaction Status Date / Time No Known Drug Allergies Allergy Verified 05/31/23 07:21 Exam Constitutional Documenting provider has reviewed patient's vital signs: yes Common normals: no apparent distress, oriented x3, healthy appearing, alert and well nourished General appearance: cooperative Nutritional appearance: obese HENMT Common normals: normocephalic, hearing grossly normal bilaterally and moist oral mucous membranes Head and scalp: normocephalic Eye Common normals: PERRL Pupil: PERRL Neck & C-Spine Common normals: full ROM General: normal visual inspection Chest Common normals: inspection of chest normal Respiratory Common normals: normal respiratory effort, no retractions and no use of accessory muscles Back & Pelvis Lumbar spine/lower back: ROM limited, pain with ROM and straight leg raise negative bilaterally Other: sensation intact BLE, strength 5/5 BLE Extremity Common normals: normal to inspection and full ROM Neuro Common normals: oriented x3, CN's II-XII intact bilaterally, moves all extremities, no focal motor deficits, no sensory deficits noted and deep tendon reflexes 2+ bilaterally Sensorium/orientation: alert Motor exam: strength 5/5 throughout and no movement abnormalities noted Psych Common normals: mental status grossly normal, thought process normal, cooperative, affect normal, speech normal and activity/motor behavior normal Speech: normal speech Thought process: normal thought process Assessment and Plan Assessment and Plan (1) Lumbar pain: Assessment and Plan: VICKIE previously 74%, 52%, 46% now 42% and patient back to working (2) Lumbar radiculopathy: Assessment and Plan: resolved (3) Myofascial pain: (4) Lumbar spondylosis: (5) Encounter for long-term opiate analgesic use: Assessment and Plan: I feel these medications are improving the patient's quality of life and allow them to tolerate activities of daily living as well as participate in recreational activity.? The patient does not report intolerable side effects. The patient is NOT opioid naive and non-pharmacologic and non-opioid treatment has failed to significantly relieve the patient's pain and improve functionality. The patient has a diagnosis that is related to a somatic or visceral pain etiology. ? ?? I reviewed with the patient the potential risks and side effects with the use of? opioid medications including but not limited to respiratory depression,? sedation, and even . I verified the patient has access to naloxone should? these effects occur. I advised the patient to avoid the use of any other? sedation substances including alcohol, THC, and benzodiazepines while? taking opioid medications due to the risk of compounding side effects and? detrimental outcomes. I reviewed the RN DOCUMENT IMPROVEMENT, pain treatment agreement, urine? drug screen, and opioid start talking forms. The patient was advised to let? their family know they had Naloxone in case they would need to administer? the medication.? ?? A drug screen was completed within the last year, and no aberrancies were noted regarding their use of controlled substances. The patient understands they are subject to the terms and conditions of the pain contract that they have signed. ? ?? I have checked an [place] report on this patient today and there are no aberrancies noted in the prescribing history.? 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 could benefit from TPIs in the future continue f/u with PCP, cardiology, ID f/u [address] Pena
== END 2023-08-21 15:00 | disposition home or self-care (01) ==
PROVIDERS: PCP Family Medicine; Visit Provider Nurse Practitioner
DX: I35.9 Nonrheumatic aortic valve disorder, unspecified (principal); M54.50 Low back pain, unspecified; M54.16 Radiculopathy, lumbar region; M79.18 Myalgia, other site; M47.816 Spondylosis without myelopathy or radiculopathy, lumbar region; Z79.891 Long term (current) use of opiate analgesic; Z95.2 Presence of prosthetic heart valve
CPT/HCPCS: 93798; G0463

== ENCOUNTER 2023-09-02 00:21 | Outpatient (RCR) | payer BC, SELFPAY | END 2023-09-27 10:32 | disposition home or self-care (01) | LOC: MM 00:21 | PROVIDERS: PCP Family Medicine; Visit Provider Internal Medicine | DX: Z51.81 Encounter for therapeutic drug level monitoring (principal); Z79.01 Long term (current) use of anticoagulants; Z95.2 Presence of prosthetic heart valve | CPT/HCPCS: 85610; G0463 ==

== ENCOUNTER 2023-09-02 14:35 | Emergency (ER) | payer BC, SELFPAY ==
[2023-09-02] VITALS (43 sets, daily range): BP systolic 99–126; BP diastolic 75–79; PULSE 79–123; TEMP 37.3–38.1; O2SAT 92–100; BMI 47.8
--- NOTE | 2023-09-02 15:30 | ED_ITS ---
HPI - SOB/Dyspnea General Chief Complaint: Shortness of Breath/Dyspnea Stated Complaint: SHORTNESS OF BREATH/FLUID RETENTION/ CHEST PAIN Time Seen by Provider: 09/02/23 15:20 Source: patient Mode of arrival: Wheelchair Limitations: no limitations History of Present Illness HPI Narrative: 52-year-old male presents to the emergency department with with complaint of chest pain, shortness of breath, weight gain over the past 3 days. History of mechanical heart valve replacement at [facility] 9 weeks ago. He is on Coumadin. He has also been noticing retention, weight gain in excess of 12 pounds over these past 3 days as well. Despite drinking about 80 ounces of fluid, his urinary output has decreased. He last was able to urinate at around 0330 hrs. this morning. Does have some mild discomfort to the mid, lower abdominal region. Chest pain, shortness of breath worse with minimal exertion. Denies fever, chills. Quality:?[] Severity:?[] Timing:?[] Context: Normal setting and activity? Modifying factors:?[] Associated symptoms: [] Related Data Home Medications ?Medication ?Instructions ?Recorded ?Confirmed acetaminophen 500 mg capsule 1,000 mg PO .Q12 PRN pain 01/28/23 06/20/23 ibuprofen 200 mg tablet (I-Prin) 800 mg PO Q12H 01/28/23 09/02/23 lisinopril 10 mg tablet 10 mg PO DAILY 01/28/23 09/02/23 omeprazole 20 mg capsule,delayed 40 mg PO DAILY 01/28/23 09/02/23 release aspirin 81 mg tablet,delayed 81 mg PO DAILY 02/24/23 09/02/23 release (Adult Aspirin Regimen) cholecalciferol (vitamin D3) 25 2,000 unit PO DAILY 02/24/23 09/02/23 mcg (1,000 unit) chewable tablet (VitaJoy Daily D) cyanocobalamin (vitamin B-12) 500 500 mcg PO DAILY 02/24/23 09/02/23 mcg tablet (B-12 DOTS) magnesium 250 mg tablet 500 mg PO DAILY 03/04/23 09/02/23 baclofen 10 mg tablet 20 mg PO Q8H 05/31/23 09/02/23 vitamin B complex (B 1 tab PO DAILY 06/06/23 09/02/23 Complex-Vitamin B12 tablet) amoxicillin 500 mg capsule 500 mg PO Q12H 09/02/23 09/02/23 furosemide 40 mg tablet (Lasix) 40 mg PO DAILY 09/02/23 09/02/23 gabapentin 800 mg tablet 800 mg PO TID 09/02/23 09/02/23 (Neurontin) warfarin 5 mg tablet 2.5 mg PO DAILY 09/02/23 09/02/23 warfarin 5 mg tablet 5 mg PO DAILY 09/02/23 09/02/23 Previous Rx's ?Medication ?Instructions ?Recorded naloxone 4 mg/actuation nasal 4 mg intranasal Q2M PRN opioid 06/12/23 spray (Narcan) overdose #1 ea hydrocodone 5 mg-acetaminophen 325 1 tab PO TID PRN pain #90 tabs 08/21/23 mg tablet Allergies Allergy/AdvReac Type Severity Reaction Status Date / Time No Known Drug Allergies Allergy Verified 05/31/23 07:21 Review of Systems ROS Narrative CONST: Denies fever, chills HENT: Denies congestion, sore throat EYES: Denies eye redness, visual disturbance RESP: + shortness of breath. Denies cough CV: + chest pain, peripheral edema. Denies palpitations GI: + lower abd pressure. Denies nausea, vomiting : + decreased urine output. Denies dysuria, flank pain MS: Denies back pain, myalgias SKIN: Denies color change, rash NEURO: Denies numbness, weakness PSYCHIATRIC: Denies confusion, agitation [facility] Medical History (Updated 09/02/23 @ 19:38 by TIA Okeefe) Hypoxia ?R09.02 - Hypoxemia (ICD-10) Community acquired pneumonia ?J18.9 - Pneumonia, unspecified organism (ICD-10) Febrile illness ?R50.9 - Fever, unspecified (ICD-10) Intractable back pain ?M54.9 - Dorsalgia, unspecified (ICD-10) Chronic lumbosacral pain ?M54.50 - Low back pain, unspecified (ICD-10) ?G89.29 - Other chronic pain (ICD-10) Foot pain ?M79.673 - Pain in unspecified foot (ICD-10) Ankle pain ?M25.579 - Pain in unspecified ankle and joints of unspecified foot (ICD-10) Achilles tendinitis ?M76.60 - Achilles tendinitis, unspecified leg (ICD-10) Plantar fascial fibromatosis ?M72.2 - Plantar fascial fibromatosis (ICD-10) Migraine ?G43.909 - Migraine, unspecified, not intractable, without status migrainosus (ICD-10) GERD (gastroesophageal reflux disease) ?K21.9 - Gastro-esophageal reflux disease without esophagitis (ICD-10) Heartburn ?R12 - Heartburn (ICD-10) High cholesterol ?E78.00 - Pure hypercholesterolemia, unspecified (ICD-10) Calcaneal spur ?M77.30 - Calcaneal spur, unspecified foot (ICD-10) Strain of Achilles tendon ?S86.019A - Strain of unspecified Achilles tendon, initial encounter (ICD-10) Low back pain ?M54.50 - Low back pain, unspecified (ICD-10) Kidney stones ?N20.0 - Calculus of kidney (ICD-10) Sleep apnea ?G47.30 - Sleep apnea, unspecified (ICD-10) Hypertension ?I10 - Essential (primary) hypertension (ICD-10) Surgical History (Updated 09/02/23 @ 19:38 by TIA Okeefe) Aortic valve replaced ?Z95.2 - Presence of prosthetic heart valve (ICD-10) History of colonoscopy ?Z98.890 - Other specified postprocedural states (ICD-10) History of foot surgery ?Z98.890 - Other specified postprocedural states (ICD-10) H/O vasectomy (2014) ?Z98.52 - Vasectomy status (ICD-10) H/O shoulder replacement ?Z96.619 - Presence of unspecified artificial shoulder joint (ICD-10) History of carpal tunnel release ?Z98.890 - Other specified postprocedural states (ICD-10) Family History Grandmother Family history of CHF (congestive heart failure) Family history of COPD (chronic obstructive pulmonary disease) Mother Family history of COPD (chronic obstructive pulmonary disease) Family history of cancer Other Family history of lung cancer Social History Within the past year, how often did you have a drink containing alcohol: monthly or less Smoking status: Never smoker Non-prescribed substance use: denies use 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 Highest level of school completed/degree received: some college, no degree Are you now , , , , never or living with a partner: living with partner In a typical week, how many times do you talk on the telephone with family, friends, or neighbors: 3 or more times per week How often do you get together with friends or relatives: 3 or more times per week How often do you attend mormon or congregational services: never Do you belong to any clubs or organizations such as mormon groups unions, [employer] or athletic groups, or school groups: no Total score: 2 Score interpretation: A score of greater than or equal to 2 indicates the lowest level of social isolation. Little interest or pleasure in doing things: not at all Feeling down, depressed, or hopeless: not at all Feel stressed/tense/nervous/anxious/difficulty sleeping: not at all Do you think of yourself as: straight/heterosexual Gender Identity: male Exam Narrative Exam Narrative: Vital signs reviewed Nurses notes noted CONST: Nontoxic, well appearing, well nourished, in no distress.? No diaphoresis.?? HENT: normocephalic, atraumatic, moist mucous membrane, no abnormalities of the nose noted, hearing normal EYES: normal appearing conjunctiva, no apparent discharge bilat NECK: normal appearance CV: normal rate, regular rhythm, + click murmur in association with mech valve. + nonpitting LE edema RESP: normal effort, speaking in complete sentences. Lung sounds clear and equal bilat.? No wheezes, rales, rhonchi GI: normal bowel sounds, soft, no distension, nontender : no CVA tenderness MS: no edema, tenderness SKIN: no pallor NEURO: A&Ox 3, no focal findings PSYCH: normal mood, affect Constitutional Vital Signs, click to edit/add: Last Vital Signs Temp 100.5 F H 09/02/23 16:55 Pulse 87 09/02/23 19:50 Resp 13 09/02/23 19:50 BP 99/75 09/02/23 15:02 Pulse Ox 98 09/02/23 17:30 O2 Del Method Room Air 09/02/23 14:41 Course Reevaluation(s) Reevaluation #1: On reevaluation, patient appears stable. He is speaking in complete sentences. Discussed with patient and results, plan, and. The are agreeable. Time: 19:25 Consultations Consultation #1: Patient discussed with Dr. Bojorquez who will accept the patient in transfer Time: 19:33 Vital Signs Vital signs: Vital Signs Temperature 99.2 F 09/02/23 14:41 Pulse Rate 84 09/02/23 14:41 Respiratory Rate 20 09/02/23 14:41 Blood Pressure 126/78 09/02/23 14:41 Pulse Oximetry 98 09/02/23 14:41 Oxygen Delivery Method Room Air 09/02/23 14:41 Temperature 100.5 F H 09/02/23 16:55 Pulse Rate 87 09/02/23 19:50 Respiratory Rate 13 09/02/23 19:50 Blood Pressure 99/75 09/02/23 15:02 Pulse Oximetry 98 09/02/23 17:30 Oxygen Delivery Method Room Air 09/02/23 14:41 MDM - SOB/Dyspnea MDM Narrative Medical decision making narrative: This is a pleasant 52-year-old male who presents to the emergency department with who also helps with history with complaint of dyspnea on exertion, decreased urinary output, and chest pain over the past 3 days. Patient with history of heart valve replacement 9 weeks ago at [facility]. Symptoms have been worsening and came in for further evaluation. On arrival, afebrile, vital signs are stable, not hypoxic. On exam, nontoxic, well-appearing patient in no distress. He is speaking complete sentences. Heart regular rate and rhythm. Lung sounds were clear and equal bilaterally. He does have some swelling in his lower extremities that is nonpitting. EKG reveals no acute or concerning changes. Labs reveal no leukocytosis. He is a little anemic at 11 and 37.3, appears stable. No thrombocytopenia. INR 1.78. No electrolyte imbalance, renal impairment. Glucose 114. BNP was elevated at 1214. LFTs unremarkable. High- sensitivity troponin was 6.7. Patient developed mild, low-grade fever during ED course. Lactate was 1.5. Procalcitonin less than 0.05. Blood cultures were also drawn and sent to the lab. Initial chest x-ray per radiology reveals mild pulmonary vascular congestion. With patient's shortness of breath, subtherapeutic INR, CT of the chest was also ordered. Radiologist called and stated that patient had very large pericardial effusion. Favor PERALTA, pericardial effusion, pulmonary congestion Pneumonia, PE less likely based on imaging myocardial injury less likely based on troponin level With the acute findings, recommend higher level of care. Patient was discussed with hospitalist at [facility] who will admit for further transfer, evaluation, echocardiogram, treatment. Disposition ? Plan: Patient will be transferred to [facility]. Was accepted by Dr. Bojorquez. Condition at time of disposition: stable ? PLEASE NOTE: Portions of the medical record may have been produced using electronic residential construction instructor and may contain errors with respect to translation of words which may not have been identified prior to finalization of the chart. Lab Data Labs: Lab Results 09/02/23 09/02/23 Range/Units 15:11 17:13 WBC 9.6 (4.0-11.0) 10^3/uL RBC 4.61 L (4.70-6.10) 10^6/uL Hgb 11.0 L (14.0-18.0) g/dL Hct 37.3 L (42.0-54.0) % MCV 80.9 (80.0-94.0) fL MCH 23.9 L (25.9-34.0) pg MCHC 29.5 L (29.9-35.2) g/dL RDW 15.1 H (11.0-15.0) % Plt Count 245 (150-450) 10^3/uL MPV 12.2 (9.5-13.5) fL Neut % (Auto) 77.4 H (43.0-75.0) % Lymph % (Auto) 11.8 L (20.5-60.0) % [place] % (Auto) 9.8 (1.7-12.0) % Eos % (Auto) 0.4 L (0.9-7.0) % Baso % (Auto) 0.3 (0.2-2.0) % Neut # (Auto) 7.4 H (1.4-6.5) 10^3/uL Lymph # (Auto) 1.1 L (1.2-3.8) 10^3/uL [place] # (Auto) 0.9 H (0.3-0.8) 10^3/uL Eos # (Auto) 0.0 (0.0-0.7) 10^3/uL Baso # (Auto) 0.0 (0.0-0.1) 10^3/uL Abs Immat Gran (auto) 0.03 (0.00-0.03) 10^3/uL Imm/Tot Granulo (auto) 0.3 (0.0-0.5) % PT 17.8 H (9.0-11.6) sec INR 1.78 APTT 30.1 (22.3-36.2) sec Sodium 139 (136-145) mmol/L Potassium 5.3 H (3.5-5.1) mmol/L Chloride 101 (98-107) mmol/L Carbon Dioxide 29.0 (21.0-32.0) mmol/L Anion Gap 14.3 BUN 22.0 H (7.0-18.0) mg/dL Creatinine 1.13 (0.70-1.30) mg/dL Est GFR ( Amer) >60 (>=60) Est GFR (Non-Af Amer) >60 (>=60) BUN/Creatinine Ratio 19.5 Glucose 114 H (74-106) mg/dL Lactate 1.5 (0.4-2.0) mmol/L Calcium 9.2 (8.5-10.1) mg/dL Total Bilirubin 0.6 (0.2-1.0) mg/dL AST 20 (15-37) U/L ALT 18 (16-63) U/L Alkaline Phosphatase 79 (46-116) U/L Troponin I High Sens 6.7 (4.0-76.1) pg/mL NT-Pro-B Natriuret Pep 1214.0 H* (<=900.0) pg/mL Total Protein 7.0 (6.4-8.2) g/dL Albumin 3.6 (3.4-5.0) g/dL Globulin 3.4 g/dL Albumin/Globulin Ratio 1.1 Procalcitonin <0.05 (0.00-0.50) ng/mL Discharge Plan Discharge Chief Complaint: Shortness of Breath/Dyspnea Clinical Impression: Acute pericardial effusion, PERALTA (dyspnea on exertion), Pulmonary edema, History of aortic valve replacement Patient Disposition: Xfer Acute Care Hospital Time of Disposition Decision: 19:38 Discharge Location: [facility] Condition: Good Mode of Transportation: EMS
--- NOTE | 2023-09-02 15:30 | XR_ITS ---
The [address] [address] Patient Name: NEHAL BAIG MRN: [id number] date: 1970 Sex: M Assigned Patient Location: ER Current Patient Location: ER Accession/Order Number: [id number] Exam Date: 09/02/2023 16:00 Report Date: 09/02/2023 16:46 At the request of: REY VALDOVINOS Procedure: XR chest 1V EXAM: XR chest 1V HISTORY: chest pain, shortness of breath COMPARISON: 08/17/2023 TECHNIQUE: Chest X-ray AP, 1 view FINDINGS: Support devices: Median sternotomy wires in place. Lungs/pleura: No consolidation, effusion, or pneumothorax. Mild pulmonary vascular congestion. Heart and mediastinum: The heart is borderline size. Status post aortic valve replacement. Bones: No acute abnormality identified. XR/XR chest 1V Impression: Mild pulmonary vascular congestion. Electronically authenticated by: VIRI MAURICIO Date: 09/02/2023 16:46
--- NOTE | 2023-09-02 15:30 | ECG_ITS ---
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
[2023-09-02 15:41] LABS: Basophils Percent Auto 0.3 % (0.2-2.0); Eosinophils Percent Auto 0.4 % (0.9-7.0); Hematocrit 37.3 % (42.0-54.0); Immature Granulocytes Abs Auto 0.03 10^3/uL (0.00-0.03); Immature Granulocytes Pct Auto 0.3 % (0.0-0.5); Lymphocytes Absolute Auto 1.1 10^3/uL (1.2-3.8); Lymphocytes Percent Auto 11.8 % (20.5-60.0); Mean Corpuscular HGB Conc 29.5 g/dL (29.9-35.2); Mean Corpuscular Hemoglobin 23.9 pg (25.9-34.0); Mean Corpuscular Volume 80.9 fL (80.0-94.0); Mean Platelet Volume 12.2 fL (9.5-13.5); Monocytes Absolute Auto 0.9 10^3/uL (0.3-0.8); Monocytes Percent Auto 9.8 % (1.7-12.0); Neutrophils Absolute Auto 7.4 10^3/uL (1.4-6.5); Neutrophils Percent Auto 77.4 % (43.0-75.0); Platelet Count 245 10^3/uL (150-450); Red Blood Count 4.61 10^6/uL (4.70-6.10); Red Cell Distribution Width 15.1 % (11.0-15.0); White Blood Count 9.6 10^3/uL (4.0-11.0)
[2023-09-02 15:56] LABS: INR 1.78; Partial Thromboplastin Time 30.1 sec (22.3-36.2); Prothrombin Time 17.8 sec (9.0-11.6)
[2023-09-02 16:04] LABS: Alanine Aminotransferase 18 U/L (16-63); Albumin Globulin Ratio 1.1; Albumin Level 3.6 g/dL (3.4-5.0); Alkaline Phosphatase 79 U/L (46-116); Anion Gap 14.3; Aspartate Amino Transferase 20 U/L (15-37); BUN Creatinine Ratio 19.5; Bilirubin Total 0.6 mg/dL (0.2-1.0); Calcium 9.2 mg/dL (8.5-10.1); Chloride 101 mmol/L (98-107); Estimated GFR (African America >60 (>=60); Estimated GFR (Non-African Ame >60 (>=60); Globulin 3.4 g/dL; Glucose 114 mg/dL (74-106); Potassium 5.3 mmol/L (3.5-5.1); Sodium 139 mmol/L (136-145); Troponin I High Sensitivity 6.7 pg/mL (4.0-76.1)
[2023-09-02] MEDS: FUROSEMIDE 20 MG/2 ML VIAL 40 MG IVP (16:50)
--- NOTE | 2023-09-02 17:43 | CT_ITS ---
The [address] [address] Patient Name: NEHAL BAIG MRN: [id number] date: 1970 Sex: M Assigned Patient Location: ER Current Patient Location: ER Accession/Order Number: [id number] Exam Date: 09/02/2023 17:32 Report Date: 09/02/2023 18:30 At the request of: REY VALDOVINOS Procedure: CT angio chest EXAM: CT angio chest HISTORY: recent surgery, shortness of breath, fever COMPARISON: 06/20/2023 TECHNIQUE: CT chest with intravenous contrast was performed with timing for the evaluation for pulmonary arteries. Multiplanar reformats were performed. MIP (maximum intensity projection) images or 3D post processing was performed. Dose reduction techniques were achieved by using automated exposure control and/or adjustment of mA and/or kV according to patient size and/or use of iterative reconstruction technique. FINDINGS: Lungs: No consolidation, pneumothorax, or effusion. Airways: Normal. Mediastinum: No adenopathy. Aorta: No aneurysm. Cardiac: Normal size. Large pericardial effusion, and along the left cardiac margin. Pulmonary vasculature: Diagnostic opacification of pulmonary arteries without evidence of pulmonary embolus. Normal morphology. Bones: No acute bony abnormality. Axilla: No adenopathy. Thyroid gland: No abnormality demonstrated on provided imaging. Soft tissues: Unremarkable. Upper abdomen: Unremarkable. Additional findings: None. CT/CT angio chest IMPRESSION:No evidence of pulmonary embolus. Large pericardial effusion, and along the left cardiac margin. Correlation with echocardiography is recommended Electronically authenticated by: VIRI MAURICIO Date: 09/02/2023 18:30
[2023-09-02 17:44] LABS: Lactate/Lactic Acid 1.5 mmol/L (0.4-2.0)
[2023-09-02 17:57] LABS: PROCALCITONIN <0.05 ng/mL (0.00-0.50)
== END 2023-09-02 21:45 | disposition short-term general hospital (02) ==
PROVIDERS: Physician Assistant; Emergency Provider Emergency Medicine Emergency Medical Services; PCP Family Medicine
DX: I30.9 Acute pericarditis, unspecified (principal); R06.09 Other forms of dyspnea; J81.1 Chronic pulmonary edema; Z95.2 Presence of prosthetic heart valve; Z79.01 Long term (current) use of anticoagulants; R79.1 Abnormal coagulation profile
CPT/HCPCS: 36415; 71045; 71275; 80053; 83605; 83880; 84145; 84484; 85025; 85610; 85730; 87040; 93005; 96374; 99285; Q9967

== ENCOUNTER 2023-09-16 14:05 | Outpatient (OUT) | payer BC, SELFPAY ==
--- NOTE | 2023-09-16 14:53 | PM.CN ---
Consult Note: HPI Data of Consult Patient: known to practice within the last 3 years Consult date: 09/16/23 Requesting Physician: Brenton Pena MD Primary Care Provider: Demetrius Parish MD Consult Narrative Reason for consult: low back pain Narrative: 52yom who presents for assessment. notes significant low back pain that is worsened with ambulation. recently had developed sepsis and subsequently underwent aortic valve replacement. thereafter developed pericardial effusion and was admitted for pericardiocentesis. continues on norco 5mg tid prn, though states the higher dose previously was more helpful. also uses gabapentin. denies adverse med side effects. cc:: CC: Brenton Pena MD Review of Systems ROS Status of ROS 10 or more systems reviewed and unremarkable except as noted in history and below [facility] Medical History (Updated 09/02/23 @ 19:38 by TIA Okeefe) Hypoxia ?R09.02 - Hypoxemia (ICD-10) Community acquired pneumonia ?J18.9 - Pneumonia, unspecified organism (ICD-10) Febrile illness ?R50.9 - Fever, unspecified (ICD-10) Intractable back pain ?M54.9 - Dorsalgia, unspecified (ICD-10) Chronic lumbosacral pain ?M54.50 - Low back pain, unspecified (ICD-10) ?G89.29 - Other chronic pain (ICD-10) Foot pain ?M79.673 - Pain in unspecified foot (ICD-10) Ankle pain ?M25.579 - Pain in unspecified ankle and joints of unspecified foot (ICD-10) Achilles tendinitis ?M76.60 - Achilles tendinitis, unspecified leg (ICD-10) Plantar fascial fibromatosis ?M72.2 - Plantar fascial fibromatosis (ICD-10) Migraine ?G43.909 - Migraine, unspecified, not intractable, without status migrainosus (ICD-10) GERD (gastroesophageal reflux disease) ?K21.9 - Gastro-esophageal reflux disease without esophagitis (ICD-10) Heartburn ?R12 - Heartburn (ICD-10) High cholesterol ?E78.00 - Pure hypercholesterolemia, unspecified (ICD-10) Calcaneal spur ?M77.30 - Calcaneal spur, unspecified foot (ICD-10) Strain of Achilles tendon ?S86.019A - Strain of unspecified Achilles tendon, initial encounter (ICD-10) Low back pain ?M54.50 - Low back pain, unspecified (ICD-10) Kidney stones ?N20.0 - Calculus of kidney (ICD-10) Sleep apnea ?G47.30 - Sleep apnea, unspecified (ICD-10) Hypertension ?I10 - Essential (primary) hypertension (ICD-10) Surgical History Aortic valve replaced ?Z95.2 - Presence of prosthetic heart valve (ICD-10) History of colonoscopy ?Z98.890 - Other specified postprocedural states (ICD-10) History of foot surgery ?Z98.890 - Other specified postprocedural states (ICD-10) H/O vasectomy (2013) ?Z98.52 - Vasectomy status (ICD-10) H/O shoulder replacement ?Z96.619 - Presence of unspecified artificial shoulder joint (ICD-10) History of carpal tunnel release ?Z98.890 - Other specified postprocedural states (ICD-10) Family History Grandmother Family history of CHF (congestive heart failure) Family history of COPD (chronic obstructive pulmonary disease) Mother Family history of COPD (chronic obstructive pulmonary disease) Family history of cancer Other Family history of lung cancer Social History Within the past year, how often did you have a drink containing alcohol: monthly or less Smoking status: Never smoker Non-prescribed substance use: denies use Previous occupational history: [employer] Highest level of school completed/degree received: some college, no degree Are you now , , , , never or living with a partner: living with partner In a typical week, how many times do you talk on the telephone with family, friends, or neighbors: 3 or more times per week How often do you get together with friends or relatives: 3 or more times per week How often do you attend hoahaoism or zoroastrian services: never Do you belong to any clubs or organizations such as hoahaoism groups unions, [employer] or athletic groups, or school groups: no Total score: 2 Score interpretation: A score of greater than or equal to 2 indicates the lowest level of social isolation. Little interest or pleasure in doing things: not at all Feeling down, depressed, or hopeless: not at all Feel stressed/tense/nervous/anxious/difficulty sleeping: not at all Do you think of yourself as: straight/heterosexual Gender Identity: male Meds Home Medications and Allergies Home Medications ?Medication ?Instructions ?Recorded ?Confirmed ?Type acetaminophen 500 mg capsule 1,000 mg PO .Q12 PRN pain 01/28/23 06/20/23 History ibuprofen 200 mg tablet (I-Prin) 800 mg PO Q12H 01/28/23 09/02/23 History lisinopril 10 mg tablet 10 mg PO DAILY 01/28/23 09/02/23 History omeprazole 20 mg capsule,delayed 40 mg PO DAILY 01/28/23 09/02/23 History release aspirin 81 mg tablet,delayed 81 mg PO DAILY 02/24/23 09/02/23 History release (Adult Aspirin Regimen) cholecalciferol (vitamin D3) 25 2,000 unit PO DAILY 02/24/23 09/02/23 History mcg (1,000 unit) chewable tablet (VitaJoy Daily D) cyanocobalamin (vitamin B-12) 500 500 mcg PO DAILY 02/24/23 09/02/23 History mcg tablet (B-12 DOTS) magnesium 250 mg tablet 500 mg PO DAILY 03/04/23 09/02/23 History baclofen 10 mg tablet 20 mg PO Q8H 05/31/23 09/02/23 History vitamin B complex (B 1 tab PO DAILY 06/06/23 09/02/23 History Complex-Vitamin B12 tablet) naloxone 4 mg/actuation nasal 4 mg intranasal Q2M PRN opioid 06/12/23 09/02/23 Rx spray (Narcan) overdose #1 ea hydrocodone 5 mg-acetaminophen 325 1 tab PO TID PRN pain #90 tabs 08/21/23 09/02/23 Rx mg tablet amoxicillin 500 mg capsule 500 mg PO Q12H 09/02/23 09/02/23 History furosemide 40 mg tablet (Lasix) 40 mg PO DAILY 09/02/23 09/02/23 History gabapentin 800 mg tablet 800 mg PO TID 09/02/23 09/02/23 History (Neurontin) warfarin 5 mg tablet 2.5 mg PO DAILY 09/02/23 09/02/23 History warfarin 5 mg tablet 5 mg PO DAILY 09/02/23 09/02/23 History Allergies Allergy/AdvReac Type Severity Reaction Status Date / Time No Known Drug Allergies Allergy Verified 05/31/23 07:21 Exam Narrative Exam Narrative: Psych-alert and oriented x 3. Attentive and appropriate, constitutionally normal, displays normal mood and affect per situation.? There are no obvious deficits in memory, reasoning, or intellect.? Skin-no obvious rashes, bruising, erythema noted to the patient's area of pain. Extremities- extremities are warm with minimal edema and palpable pulses. Lumbar-no significant tenderness to palpation noted in the lumbar spine and paraspinal musculature.? Pain is elicited with extension, and lateral rotation of the lumbar spine. Range of motion is slightly diminished with these motions due to pain. Coordination remains intact.? Gait remains non-antalgic. Assessment and Plan Assessment and Plan (1) Lumbar radiculopathy: (2) Lumbar spondylosis: Plan 52yom who presents for assessment. continues in cardiac rehab. states he feels very well from a cardiac standpoint, but back is still limiting his function. he has an mri of lumbar spine upcoming next week. discussed that we would review this and then decide on a plan. he is in agreement. meds reviewed. will go back to norco 7.5mg tid prn temporarily. also agreed to take over gabapentin. follow up in 4 weeks.
== END 2023-09-16 14:06 | disposition home or self-care (01) ==
LOC: PM 14:05
PROVIDERS: PCP Family Medicine; Visit Provider Anesthesiology
DX: I35.9 Nonrheumatic aortic valve disorder, unspecified (principal); Z95.2 Presence of prosthetic heart valve; M47.26 Other spondylosis with radiculopathy, lumbar region
CPT/HCPCS: 93798; G0463

== ENCOUNTER 2023-09-30 00:43 | Outpatient (RCR) | payer BC, SELFPAY | END 2023-10-30 09:41 | disposition home or self-care (01) | LOC: MM 00:43 | PROVIDERS: PCP Family Medicine; Visit Provider Internal Medicine | DX: Z51.81 Encounter for therapeutic drug level monitoring (principal); Z79.01 Long term (current) use of anticoagulants; Z95.2 Presence of prosthetic heart valve | CPT/HCPCS: 85610; G0463 ==

== ENCOUNTER 2023-09-30 07:23 | Outpatient (RCR) | payer BC, SELFPAY ==
--- NOTE | 2023-07-29 11:30 | CR1_ITS ---
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 Order Number: [id number] Reading MD: AILYN JOHNSON Interpretive Statements Session Date: Electronically Signed On 07-29-2023 23:01:52 EDT by AILYN JOHNSON
--- NOTE | 2023-08-23 08:01 | CR1_ITS ---
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 Order Number: [id number] Reading MD: AILYN JOHNSON Interpretive Statements Session Date: Electronically Signed On 08-23-2023 18:03:51 EDT by AILYN JOHNSON
--- NOTE | 2023-09-03 11:08 | PC.NURSE ---
I spoke with the patients today to check in on patient as he has not attended CR for a few sessions. She states he was in the ER at [facility] yesterday and sent to [facility] for Pericardial effusion. Pt was getting a ECHO done at [facility] when I called to speak with him. SO aware that we will put pt on hold for CR at this time and that she can call anytime if she has questions or if pt is ready to restart rehab. She was made aware that we will need clearance from egg tester prior to him starting back to rehab.
--- NOTE | 2023-09-25 07:20 | CR1_ITS ---
The [facility] Test Date: 2023-09-25 Pat Name: NEHAL BAIG Department: Room: - Gender: Male Nurse Advisor: : 1970 Requested By: SHANELLE ROLLE M.D. Order Number: [id number] Reading MD: AILYN JOHNSON Interpretive Statements Session Date: Electronically Signed On 09-25-2023 22:44:20 EDT by AILYN JOHNSON
--- NOTE | 2023-10-01 07:00 | PC.NURSE ---
Outreach letter due to lack of attendance and copy of attendance policy mailed to patient on this date. Patient has been outreached by phone prior to this letter to help facilitate their attendance in cardiac rehab.
--- NOTE | 2023-10-24 07:15 | CR1_ITS ---
[facility] Test Date: 2023-10-24 Pat Name: NEHAL BAIG Department: Room: - Gender: Male Signal Manager: : 1970 Requested By: SHANELLE ROLLE M.D. Order Number: [id number] Reading MD: AILYN JOHNSON Interpretive Statements Session Date: Electronically Signed On 10-25-2023 18:25:26 EDT by AILYN JOHNSON
--- NOTE | 2023-11-25 12:56 | CR1_ITS ---
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 Order Number: [id number] Reading MD: AILYN JOHNSON Interpretive Statements Session Date: Electronically Signed On 11-25-2023 20:26:43 EDT by AILYN JOHNSON
--- NOTE | 2024-01-01 11:07 | CR1_ITS ---
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 Order Number: [id number] Reading MD: AILYN JOHNSON Interpretive Statements Session Date: Electronically Signed On 01-02-2024 20:09:12 EDT by AILYN JOHNSON
== END 2024-01-01 11:07 | disposition home or self-care (01) ==
LOC: CR 07:23
PROVIDERS: PCP Family Medicine; Visit Provider Internal Medicine Interventional Cardiology
DX: I35.9 Nonrheumatic aortic valve disorder, unspecified (principal); Z95.2 Presence of prosthetic heart valve
CPT/HCPCS: 93798

== ENCOUNTER 2023-10-16 14:17 | Outpatient (OUT) | payer BC, SELFPAY ==
--- NOTE | 2023-10-16 14:26 | PM.CN ---
Consult Note: HPI Data of Consult Patient: known to practice within the last 3 years Consult date: 09/16/23 Requesting Physician: Miya Batista NP Primary Care Provider: Demetrius Parish MD Consult Narrative Reason for consult: low back pain Narrative: 53yom who presents for assessment. notes significant low back pain that is worsened with ambulation. recently had developed sepsis and subsequently underwent aortic valve replacement. thereafter developed pericardial effusion and was admitted for pericardiocentesis. continues on norco 7.5mg tid prn. also uses gabapentin. denies adverse med side effects. recently completed lumbar MRI, report not available. cc:: CC: Miya Batista NP Review of Systems ROS Status of ROS 10 or more systems reviewed and unremarkable except as noted in history and below Musculoskeletal Reports: back pain [facility] Medical History (Updated 09/02/23 @ 19:38 by TIA Okeefe) Hypoxia ?R09.02 - Hypoxemia (ICD-10) Community acquired pneumonia ?J18.9 - Pneumonia, unspecified organism (ICD-10) Febrile illness ?R50.9 - Fever, unspecified (ICD-10) Intractable back pain ?M54.9 - Dorsalgia, unspecified (ICD-10) Chronic lumbosacral pain ?M54.50 - Low back pain, unspecified (ICD-10) ?G89.29 - Other chronic pain (ICD-10) Foot pain ?M79.673 - Pain in unspecified foot (ICD-10) Ankle pain ?M25.579 - Pain in unspecified ankle and joints of unspecified foot (ICD-10) Achilles tendinitis ?M76.60 - Achilles tendinitis, unspecified leg (ICD-10) Plantar fascial fibromatosis ?M72.2 - Plantar fascial fibromatosis (ICD-10) Migraine ?G43.909 - Migraine, unspecified, not intractable, without status migrainosus (ICD-10) GERD (gastroesophageal reflux disease) ?K21.9 - Gastro-esophageal reflux disease without esophagitis (ICD-10) Heartburn ?R12 - Heartburn (ICD-10) High cholesterol ?E78.00 - Pure hypercholesterolemia, unspecified (ICD-10) Calcaneal spur ?M77.30 - Calcaneal spur, unspecified foot (ICD-10) Strain of Achilles tendon ?S86.019A - Strain of unspecified Achilles tendon, initial encounter (ICD-10) Low back pain ?M54.50 - Low back pain, unspecified (ICD-10) Kidney stones ?N20.0 - Calculus of kidney (ICD-10) Sleep apnea ?G47.30 - Sleep apnea, unspecified (ICD-10) Hypertension ?I10 - Essential (primary) hypertension (ICD-10) Surgical History Aortic valve replaced ?Z95.2 - Presence of prosthetic heart valve (ICD-10) History of colonoscopy ?Z98.890 - Other specified postprocedural states (ICD-10) History of foot surgery ?Z98.890 - Other specified postprocedural states (ICD-10) H/O vasectomy (2013) ?Z98.52 - Vasectomy status (ICD-10) H/O shoulder replacement ?Z96.619 - Presence of unspecified artificial shoulder joint (ICD-10) History of carpal tunnel release ?Z98.890 - Other specified postprocedural states (ICD-10) Family History Grandmother Family history of CHF (congestive heart failure) Family history of COPD (chronic obstructive pulmonary disease) Mother Family history of COPD (chronic obstructive pulmonary disease) Family history of cancer Other Family history of lung cancer Social History Within the past year, how often did you have a drink containing alcohol: monthly or less Smoking status: Never smoker Non-prescribed substance use: denies use 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 Highest level of school completed/degree received: some college, no degree Are you now , , , , never or living with a partner: living with partner In a typical week, how many times do you talk on the telephone with family, friends, or neighbors: 3 or more times per week How often do you get together with friends or relatives: 3 or more times per week How often do you attend christianity or adventism services: never Do you belong to any clubs or organizations such as christianity groups unions, fraternal or athletic groups, or school groups: no Total score: 2 Score interpretation: A score of greater than or equal to 2 indicates the lowest level of social isolation. Little interest or pleasure in doing things: not at all Feeling down, depressed, or hopeless: not at all Feel stressed/tense/nervous/anxious/difficulty sleeping: not at all Do you think of yourself as: straight/heterosexual Gender Identity: male Meds Home Medications and Allergies Home Medications ?Medication ?Instructions ?Recorded ?Confirmed ?Type omeprazole 20 mg capsule,delayed 40 mg PO DAILY 01/28/23 09/02/23 History release aspirin 81 mg tablet,delayed 81 mg PO DAILY 02/24/23 09/02/23 History release (Adult Aspirin Regimen) warfarin 5 mg tablet 2.5 mg PO DAILY 09/02/23 09/02/23 History warfarin 5 mg tablet 5 mg PO DAILY 09/02/23 09/02/23 History cholecalciferol (vitamin D3) 50 50 mcg PO DAILY 09/16/23 09/16/23 History mcg (2,000 unit) capsule colchicine 0.6 mg tablet 0.6 mg PO BID 09/16/23 09/16/23 History dapagliflozin propanediol 10 mg 10 mg PO QAM 09/16/23 09/16/23 History tablet (Farxiga) gabapentin 400 mg capsule 400 mg PO DAILY 09/16/23 09/16/23 History gabapentin 400 mg capsule See Rx Instructions .Route 09/16/23 Rx .COMPLEX #150 caps hydrocodone 7.5 mg-acetaminophen 1 tab PO TID PRN pain #90 tabs 09/16/23 Rx 325 mg tablet metoprolol succinate 25 mg capsule 25 mg PO DAILY 09/16/23 09/16/23 History sprinkle, ext. release 24 hr spironolactone 25 mg tablet 12.5 mg PO DAILY 09/16/23 09/16/23 History valsartan 40 mg tablet 40 mg PO DAILY 09/16/23 09/16/23 History Allergies Allergy/AdvReac Type Severity Reaction Status Date / Time No Known Drug Allergies Allergy Verified 09/16/23 15:55 Exam Narrative Exam Narrative: Psych-alert and oriented x 3. Attentive and appropriate, constitutionally normal, displays normal mood and affect per situation.? There are no obvious deficits in memory, reasoning, or intellect.? Skin-no obvious rashes, bruising, erythema noted to the patient's area of pain. Extremities- extremities are warm with minimal edema and palpable pulses. Lumbar-no significant tenderness to palpation noted in the lumbar spine and paraspinal musculature.? Pain is elicited with extension, and lateral rotation of the lumbar spine. Range of motion is slightly diminished with these motions due to pain. Coordination remains intact.? Gait remains non-antalgic. Constitutional Documenting provider has reviewed patient's vital signs: yes Common normals: no apparent distress, oriented x3, healthy appearing, alert and well nourished General appearance: cooperative HENMT Common normals: normocephalic, hearing grossly normal bilaterally and moist oral mucous membranes Head and scalp: normocephalic Eye Common normals: PERRL Pupil: PERRL Neck & C-Spine Common normals: full ROM General: normal visual inspection Chest Common normals: inspection of chest normal Respiratory Common normals: normal respiratory effort, no retractions and no use of accessory muscles Neuro Common normals: oriented x3, CN's II-XII intact bilaterally, moves all extremities, no focal motor deficits, no sensory deficits noted and deep tendon reflexes 2+ bilaterally Sensorium/orientation: alert Motor exam: strength 5/5 throughout and no movement abnormalities noted Psych Common normals: mental status grossly normal, thought process normal, cooperative, affect normal, speech normal and activity/motor behavior normal Speech: normal speech Thought process: normal thought process Results Imaging lumbar mri: Attestation: I personally reviewed and interpreted this imaging study as follows: My impression: mild central canal narrowing at L5-S1 notable foraminal narrowing at bilateral L4-5 and L5-S1 Radiologist's impression: no report available Additional Findings Additional findings: If on a controlled substance or opioids, I have checked an [place] report on this patient and there are no aberrancies noted in the prescribing history.??If on a controlled substance or opioid a drug screen was completed and reviewed within the last year, and if there has not been a drug screen completed we ordered one today to monitor higher risk, state monitored pain medication use. As part of providing excellent, safe, comprehensive care, the following was completed at our patient's visit: 1. A medication reconciliation and review to ensure accurate knowledge of current/active medications, including asking our patients to inform us about any [id number] medications or herbal remedies/nutritional supplements/alternative remedies. 2. A review to specifically ensure our patients have had annual screening for screening for depression, screening for tobacco use, and screening for unhealthy alcohol use. For concerning screenings had a discussion with the patient, provided patient education, and recommended follow-up with primary care provider when appropriate. If patient noted with a risk of falling, they received education on strength, gait, and balance training to prevent future risk of falling. Assessment and Plan Assessment and Plan (1) Lumbar pain: Assessment and Plan: VICKIE previously 74%, 52%, 46% now 42% and patient back to working (2) Lumbar radiculopathy: Assessment and Plan: resolved (3) Myofascial pain: (4) Lumbar spondylosis: (5) Encounter for long-term opiate analgesic use: Assessment and Plan: I feel these medications are improving the patient's quality of life and allow them to tolerate activities of daily living as well as participate in recreational activity.? The patient does not report intolerable side effects. The patient is NOT opioid naive and non-pharmacologic and non-opioid treatment has failed to significantly relieve the patient's pain and improve functionality. The patient has a diagnosis that is related to a somatic or visceral pain etiology. ? ?? I reviewed with the patient the potential risks and side effects with the use of? opioid medications including but not limited to respiratory depression,? sedation, and even . I verified the patient has access to naloxone should? these effects occur. I advised the patient to avoid the use of any other? sedation substances including alcohol, THC, and benzodiazepines while? taking opioid medications due to the risk of compounding side effects and? detrimental outcomes. I reviewed the PROPERTY ADMINISTRATOR, pain treatment agreement, urine? drug screen, and opioid start talking forms. The patient was advised to let? their family know they had Naloxone in case they would need to administer? the medication.? ?? A drug screen was completed within the last year, and no aberrancies were noted regarding their use of controlled substances. The patient understands they are subject to the terms and conditions of the pain contract that they have signed. ? ?? I have checked an [place]AR[place] report on this patient today and there are no aberrancies noted in the prescribing history.? Plan will request official read of lumbar MRI plan for bilateral L4-5 TFESI followed by bilateral L5-S1 TFESI under fluoroscopy for lumbar stenosis with NC increase norco 7.5mg TID-QID PRN moderate to severe pain, at this time only finding 6 hours of relief continue current medications, tolerating well without side effect continue f/u with PCP, cardiology, now cleared by ID f/u 2 weeks after ESIs complete
== END 2023-10-16 14:18 ==
PROVIDERS: PCP Family Medicine; Visit Provider Nurse Practitioner
DX: M54.50 Low back pain, unspecified (principal); M54.16 Radiculopathy, lumbar region; M79.18 Myalgia, other site; M47.816 Spondylosis without myelopathy or radiculopathy, lumbar region; Z79.891 Long term (current) use of opiate analgesic
CPT/HCPCS: G0463

== ENCOUNTER 2023-10-24 14:04 | Outpatient (OUT) | payer BC, SELFPAY ==
--- NOTE | 2023-10-24 14:30 | CA_ITS ---
Patient Name: NEHAL BAIG MR#: [id number] : 1970 Exam Date: 10/24/2023 Ordering Doctor: DR KENDALL CARTER M.D. ECHOCARDIOGRAM REPORT PROCEDURE: CA ECHO LIMITED INDICATIONS: Pericardial effusion, aortic valve replacement COMPARISON: None. DESCRIPTION: Limited ECHOCARDIOGRAM Real-time transthoracic echocardiography with 2D and M-mode performed. QUALITY: Technical quality was adequate. Limited echocardiogram per physician order. LEFT VENTRICLE: Normal chamber size. Normal left ventricular wall thickness. LV EF: Global left ventricular systolic function is difficult to assess but appears preserved; visually estimated ejection fraction is 55 to 60%. Unable to assess regional wall motion abnormalities. LEFT ATRIUM: Normal chamber size. RIGHT ATRIUM: Mild dilatation. RIGHT VENTRICLE: Normal chamber size. Normal systolic function. TRICUSPID VALVE: Normal mobility and thickness. MITRAL VALVE: Mildly thickened with normal mobility. There is no mitral annular calcification. AORTIC VALVE: Bio-Prosthetic valve seen in the aortic position. AORTIC ROOT: Normal diameter and appearance. PULMONIC VALVE: Not well visualized. PERICARDIUM: No evidence of pericardial effusion. IVC: IVC is normal in size, does not collapse. CONCLUSION: 1. Global left ventricular systolic function is difficult to assess but appears preserved; visually estimated ejection fraction is 55 to 60% 2. Normal right ventricular size and systolic function 3. A bioprosthetic valve is seen in the aortic position 4. No significant pericardial effusion A limited echocardiogram was performed Adult Echocardiography Procedure Report Left Ventricle LVEDD (3.7 - 5.6 cm): 5.46 cm LVESD (2.2 - 4.0 cm): 3.61 cm LVIVS thickness (0.6 - 1.2 cm): 0.78 cm LVPW thickness (0.5 - 1.0 cm): 0.99 cm LVOT Diameter 2.50 cm Left Atrium LA Volume Index (2D A2C): 30.67 ml/m2 Left Atrium Systolic Dimension: 3.73 cm Mitral Valve Right Ventricle Aorta AO Root Diam: 3.57 cm Aortic Valve Tricuspid Valve Pulmonic Valve Right Atrium Right Atrium Systolic Pressure: 76.67 ml, 76.67 ml Dictated by: Kendall Carter M.D. on 10/25/2023 at 14:56 Approved by: Kendall Carter M.D. on 10/25/2023 at 14:59
== END 2023-10-24 14:05 | disposition home or self-care (01) ==
LOC: CARD 14:04
PROVIDERS: PCP Family Medicine; Visit Provider Internal Medicine Interventional Cardiology
DX: I31.39 Other pericardial effusion (noninflammatory) (principal)
CPT/HCPCS: 93308

== ENCOUNTER 2023-10-31 00:31 | Outpatient (RCR) | payer BC, SELFPAY | END 2023-11-29 09:31 | disposition home or self-care (01) | LOC: MM 00:31 | PROVIDERS: PCP Family Medicine; Visit Provider Internal Medicine | DX: Z51.81 Encounter for therapeutic drug level monitoring (principal); Z79.01 Long term (current) use of anticoagulants; Z95.2 Presence of prosthetic heart valve | CPT/HCPCS: 85610; G0463 ==

== ENCOUNTER 2023-11-07 12:44 | Outpatient (OUT) | payer BC, SELFPAY ==
--- NOTE | 2023-11-07 13:00 | CA_ITS ---
Patient Name: NEHAL BAIG MR#: [id number] : 1970 Exam Date: 11/07/2023 Ordering Doctor: DR KENDALL SANDOVAL M.D. ECHOCARDIOGRAM REPORT PROCEDURE: CA ECHO DOPPLER COMPLETE INDICATIONS: Pericardial effusion, aortic valve replacement COMPARISON: None. DESCRIPTION: COMPLETE ECHOCARDIOGRAM Real-time transthoracic echocardiography with 2D, M-mode, spectral and color flow Doppler performed. QUALITY: Technical quality was limited. LEFT VENTRICLE: Normal chamber size. Borderline left ventricular hypertrophy. Normal systolic function. Abnormal septal motion, commonly seen post open heart surgery. LV EF: Normal left ventricular ejection fraction, (>55%). DIASTOLIC: Diastolic function is indeterminate. ATRIAL SEPTUM: LEFT ATRIUM: Mild dilatation. RIGHT ATRIUM: Mild dilatation. RIGHT VENTRICLE: Normal chamber size. Normal right ventricular systolic function. TRICUSPID VALVE: Normal mobility and thickness. No stenosis with trivial regurgitation. Doppler studies reveal mildly (35-45) elevated right sided pressures. RVSP 41 mmHg MITRAL VALVE: Mildly thickened with normal mobility. No evidence of mitral valve stenosis. There is no mitral annular calcification. Trivial mitral regurgitation. AORTIC VALVE: Bio-Prosthetic valve appears well seated in the aortic position with normal doppler flow. No aortic regurgitation. AORTIC ROOT: Normal diameter and appearance. PULMONIC VALVE: Not well visualized. No stenosis. No regurgitation. PERICARDIUM: No evidence of pericardial effusion. IVC: IVC is dilated (2.3 cm), does not fully collapse. PLEURA: CONCLUSION: 1. The left ventricle is normal in size and appears to exhibit normal systolic function. LVEF is estimated at 55%. 2. Normal right ventricular size and systolic function. 3. Mild biatrial dilatation. 4. Bioprosthetic aortic valve is well-seated with normal function and no regurgitation. 5. Mildly elevated right-sided pressures. 6. No pericardial effusion. 7. Technically difficult study with poor sound transmission. Adult Echocardiography Procedure Report Left Ventricle LVEDD (3.7 - 5.6 cm): 5.54 cm LVESD (2.2 - 4.0 cm): 2.95 cm LVIVS thickness (0.6 - 1.2 cm): 0.98 cm LVPW thickness (0.5 - 1.0 cm): 1.14 cm e': 0.10 m/s E - e': 9.90 LVOT Max Gradient: 1.82 mm[Hg] LVOT Area (cm2): 0.67 m/s Peak Velocity (LVOT): 0.67 m/s Mean Velocity (LVOT): 0.46 m/s LVOT Diameter 2.68 cm Left Atrium LA Volume Index (2D A2C): 30.91 ml/m2 Left Atrium Systolic Dimension: 4.20 cm Mitral Valve MV E to A Ratio: 1.59 Mitral Valve A-Wave Peak Velocity: 0.61 m/s Mitral Valve E-Wave Peak Velocity: 0.96 m/s Right Ventricle Aorta AO Root Diam: 3.21 cm Aortic Valve AoV Area (Peak Derik): 2.34 cm2, 2.34 cm2 AoV Area (VTI): 2.85 cm2, 2.85 cm2 Peak Velocity(Antegrade Flow): 1.63 m/s Peak Gradient(Antegrade Flow): 10.64 mm[Hg] Mean Velocity(Antegrade Flow): 1.14 m/s Mean Gradient(Antegrade Flow): 5.88 mm[Hg] Velocity Time Integral: 29.72 cm Tricuspid Valve Peak Velocity (Regurgitant Flow): 2.54 m/s Pulmonic Valve Peak Velocity: 0.62 m/s Peak Gradient: 1.52 mm[Hg] Right Atrium Right Atrium Systolic Pressure: 77.50 ml, 77.50 ml Dictated by: Maximiliano Pack M.D. on 11/07/2023 at 19:57 Approved by: Maximiliano Pack M.D. on 11/07/2023 at 20:03
== END 2023-11-07 12:45 | disposition home or self-care (01) ==
LOC: CARD 12:44
PROVIDERS: PCP Family Medicine; Visit Provider Internal Medicine Interventional Cardiology
DX: I31.39 Other pericardial effusion (noninflammatory) (principal)
CPT/HCPCS: 93306

== ENCOUNTER 2023-11-11 07:11 | Day surgery (SDC) | payer BC, SELFPAY ==
--- OUTSIDE RECORDS SUMMARY | 2023-11-11 07:16 | XMS_ITS | CCD ---
Author Organization [facility] Care Team Providers Care Trailer Sections Assembler Name Role Phone Pal FERRY HAND - [facility] [place] Care Provide r [facility] Primary Care Unavailable JUANITA CARMONA Consulting Unavailable JUANITA CARMONA Attending Unavailable JUANITA CARMONA Admitting [facility]available [facility] [facility] Primary Care Physician Unavaila Nicolasa Barrios Unavailable Unavailable [facility] Primary Care Physician [phone] [facility] [place] [facility] [place] [facility] FERRY HAND[facility] F[facility] HAND[facility] [place] Care Provider DR KINGSLEY HERRERA V Consulting Unavailable YRN, DR ARROYO Attending Unavailable YRN, DR ARROYO Admitting Unavailable TOSHA, DR JAYY Marte Consulting Unavailable YRN, DR ARROYO Consulting Unavailable [facility] Referring Unavailable [facility] Primary Care Unavailable ANH MENA Attending Unavailab ANH Morales Referring Unavailab [facility] Primary Care Unavailable [facility] Primary Care Unavailable [facility] Referring Unavailable [facility] Primary Care Unavailable [facility] Attending Unavailable [facility] Referring Unavailable [facility] Primary Care Unavailable [facility] Primary Care Unavailable TREY SHARMA Attending Unavailable TREY SHARMA Referring Unavailable [facility] Attending Unavailable [facility] Primary Care Unavailable [facility] Primary Care Unavailable [facility] Referring Unavailable [facility] Primary Care Unavailable [facility] Attending Unavailable [facility] Referring Unavailable [facility] Primary Care Unavailable [facility] Referring Unavailable [facility] Primary Care Unavailable [facility] Attending Unavailable [facility] Primary Care Unavailable JAYY PATEL Referring Unavailable [facility] Primary Care Unavailable [facility] Attending Unavailable [facility] Primary Care Unavailable ANH MENA Attending Unavailab le [facility] Referring Unavailable ANH MENA Referring Unavailab TARSHA Willson Attending Unavailable [facility] Primary Care Unavailable [facility] Primary Care Unavailable [facility] Referring Unavailable [facility] Primary Care Unavailable [facility] Referring Unavailable Kelly Yi Unavailable HAIDER Aguillon [facility] Primary Care Provider HAIDER Yi Attending Provider [phone] HAIDER Quezada Attending Provider HAIDER Guerrero Primary Care Provider Siri Quezada Unavailable Vonnie Guerrero Primary Care Physician Kandis Amado Unavailable HAIDER Aguillon [facility] Primary Care Provider HAIDER Yi Attending Provider HAIDER Quezada Attending Provider HAIDER Guerrero Primary Care Provider [phone] DO Huan Cowan Attending Provider Katya Harrington Unavailable Unavailable BROWN, HUAN A Referring Unavailable BROWN, HUAN A Attending Unavailable BROWN, HUAN A Attending Unavailable BROWN, HUAN A Referring Unavailable BROWN, HUAN A Attending Unavailable YolandaVonnie wadsworth Attending Unavailable Brown, Huan A Admitting Unavailable Brown, Huan A Attending Unavailable Brown, Huan A Admitting Unavailable Brown, Huan A Attending Unavailable Brown, Huan A Admitting Unavailable Brown, Huan A Attending Unavailable YolandaVonnie wadsworth Attending Unavailable Gieditis , Andrius Reid Attending Unavailable Giventuraitis , Andrius Vlay Attending Unavailable Gitricia SEXTON, Andrius Vyttam Attending Unavailable Gieditis , Andrius Franklin Attending Unavailable Giedraitis MD, Andrius Vytautas Attending [facility]available [facility] Unavailable Joel Bledsoe Attending Unavailable Joel Bledsoe Admitting Unavailable Joel Bledsoe Admitting Unavailable CHANDRAKANT BERNAL [facility] Unavailable POLY KAUR Attending Unavailable Siri Quezada Admitting Unavailable YolandaEridi Luisa [facility] Unavailable Damien, Siri Attending Unavailable Quezada, Siri Admitting Unavailable Yolanda Vonnie Luisa Primary [facility] Unavailable Siri Quezada Attending Unavailable Quezada, Siri Admitting Unavailable [facility] Unavailabl e Siri Quezada Attending Unavailable Huan Cowan Attending Unavailable Huan Cowan Admitting Unavailable Kelly Yi Attending Unavailable Kelly Yi Admitting Unavailable [facility] Unavailabl e ISAIAS DEMPSEY Referring Unavailabl e GEORGE, PAUL Admitting Unavailable DORIS, PAUL Attending Unavailable CHANDRAKANT BERNAL Referring Unavailable CANDICE, Referring Unavailable ISAIAS DEMPSEY Referring Unavailabl e GEORGE, PAUL Referring Unavailable ISAIAS DEMPSEY Referring Unavailabl e KULAKOMIKE, ISAIAS Herbert Referring Unavailabl e GEORGE, PAUL Admitting Unavailable PAUL GEORGE Attending Unavailable DREW THORPE Referring Unavailable ISAIAS DEMPSEY Referring Unavailabl e KULAKOISAIAS MCKEON Referring Unavailabl e OVITT, NINFA Referring Unavailable OVITT, NINFA Referring Unavailable GEORGE, PAUL Referring Unavailable CANDICE, Referring Unavailable GEORGE, PAUL Referring Unavailable GEORGE, PAUL Referring Unavailable GEORGE, PAUL Referring Unavailable ISAIAS DEMPSEY Referring Unavailabl e KULAKOISAIAS MCKEON Referring Unavailabl e KULAKOMIKE, ISAIAS Herbert Referring Unavailabl e GEORGE, PAUL Referring Unavailable CANDICECHRISTOPHER RODRIGUESA Referring Unavailable ISAIAS DEMPSEY Referring Unavailabl e CANDICE, Referring Unavailable JODY KOCH Referring Unavailable MERGORDON CHERY Referring Unavailable CANDICE, Referring Unavailable GEORGE, PAUL Referring Unavailable MARQUISHAWLucia EH Attending Unavailable KENDALL SANDOVAL Attending Unavailable ISAIAS DEMPSEY Attending Unavailabl e GUSTAVO ANNABELLA Attending Unavailable CARLEEN MONTALVO Attending Unavailable NINFA ARROYO Attending Unavailable MAI HARVEY Attending Unavailable ANNABELLA CHEN Attending Unavailable RUPERT ANGELES Attending Unavailable ROSELYN, ISAIAS Herbert Referring Unavailabl e KULAKODANNYKI, ISAIAS Herbert Referring Unavailabl e KULAKOWSKI, ISAIAS Herbert Referring Unavailabl e KULAKOWSKI, ISAIAS Herbert Referring Unavailabl e CANDICE, Referring Unavailable CANDICE, Referring Unavailable CANDICE, Referring Unavailable CANDICE, Referring Unavailable ROSELYN, ISAIAS Herbert Referring Unavailabl e Allergies Allergy Classification Reported Allergen(s) Allergy Type Date of Onset Reaction(s) Facility Unclassified (1 source) No Known Medication Allergies; Translations: [No Known Medication Allergies] Propensity to adverse reactions to drug (disorder) [facility] Repository (1 source) atorvastatin; Translations: [ATORVASTATIN] Drug Allergy [facility] Repository Medications Current Medications Medication Drug [...] Start: 03-01-2019 take 2 tablets by mo [facility] every six hours as needed [...] day(s), # 9 cap(s), Refills(s) 0, Pharmacy: [facility] #37, 185.5, cm, 08/08/21 12:06:00 EDT, [...] constipation, # 20 cap(s), Refills(s) 0, Pharmacy: [facility] #37, 185.5, cm, 08/08/21 12:06:00 EDT, Height/Length [...] milk, # 60 tab(s), Refills(s) 0, Pharmacy: [facility] #37, 185.5, cm, 08/08/21 12:06:00 EDT, Height/Length [...] Start: 2016 take 1 capsule by mo [facility] once daily Omeprazole 40 mg [...] on above: Take 1 capsule by mo [facility] once daily. 2 tablet ondansetron (ZOFRAN-ODT) [...] Starting 08/01/20 at 2358 polyethylene glycol 3350 04691 mg powder for oral solution (1 source) Osmotic Laxative Start: 08-01-2020 17 g, Oral, D AILY PRN, Constipation, Starting 08/01/20 at 2358 First line therapy for constipation predniSONE 10 mg oral tablet (5 sources) Start: 06-11-2023 Prednisone Act chi 10 MG PO June 11, 2023 12:00am Start: 12-16-2022 take 1 tablet by tori every twelve hours predniSONE 20 MG 1 [...] tab(s), Refill(s) 0, 1-2 tab(s) Oral q4hr, [facility] #37, 185.5, cm, 08/08/21 12:06:00 EDT, [...] autopap titration study. Please fax results to [phone]. DX: JACOBY G47.33 1 Each 0 11/08/2016 09/13/2020 Discontinued Comment on above: Please perform autop ap titration study. Please fax results to [phone]. DX: JACOBY G47.33 doxepin hydrochloride 10 mg [...] above: Take 2 tablets by [facility] daily with dinner. 1 ml morphine sulfate [...] 10 mL injection (DEFINITY) polyethylene glycol 3350 963755 mg / potassium chloride 2970 mg / sodium bicarbonate 6740 mg / sodium chloride 5860 mg / sodium sulfate 34289 mg powder for oral solution (14 sources) [...] disease (2 sources) Atherosclerotic heart disease of [place] coronary artery without angina pectoris; Translations: [Atherosclerotic heart disease of [place] coronary artery without angina pectoris] Onset: 4 [...] 50.0-59.9, adult (FORMERLY [facility])] Onset: 0 Chronic Other nutritional; endocrine; and metabolic disorders (4 sources) Body mass index (BMI) 50.0-59.9, adult; Translations: [Morbid obesity with BMI of 50.0-59.9, adult ([facility])] Onset: 0 Chronic Other nutritional; endocrine; and [...] Spondylosis; intervertebral disc disorders; other back problems (10 sources) Disorder of lumbar disc; Translations: [Unspecified thoracic, thoracolumbar and lumbosacral intervertebral disc disorder] Onset: 3 06-11-2023 Chronic Unclassified (6 sources) Patient encounter status 01-09-2023 Unclassified (1 source) Pain in left ankle and joints of left foot; Translations: [Pain in left ankle and joints of left foot] Onset: 3 Unclassified (1 source) Other pericardial effusion (noninflammatory); Translations: [Other pericardial effusion (noninflammatory)] Onset: 4 Unclassified (1 source) Acute cough; Translations: [Acute cough] Onset: 4 Unclassified (1 source) Supraventricular tachycardia, unspecified; Translations: [Supraventricular tachycardia, unspecified] Onset: 4 Unclassified (2 sources) Hospital Follow-up; Translations: [Hospital Follow-up] Onset: 4 Unclassified (2 sources) Granulicatella adaicens bacteremia Onset: 4 Past or Other Problems Problem Classification Problem Date Documented Date Episodic/Chronic Administrative/socia l admission (1 source) Dietary counseling and surveillance; Translations: [Dietary counseling and surveillance] Onset: 02-04-2023 Episodic Allergic reactions (20 sources) Environmental allergy; Translations: [Other allergy status, other than to drugs and biological substances] Onset: 03-10-2021 03-10-2021 Episodic Bacterial infection; unspecified site (2 sources) Bacteremia; Translations: [Bacteremia] Onset: 06-20-2023 Episodic Conditions associated with dizziness or vertigo (20 sources) Lightheadedness; Translations: [Dizziness and giddiness] Onset: 11-26-2019 11-26-2019 Episodic Crushing injury or internal injury (20 sources) Hematomediastinum; Translations: [Contusion of other specified intrathoracic organs, initial encounter] Onset: 08-01-2020 Episodic Diabetes mellitus without complication (20 sources) Impaired fasting glycemia; Translations: [Impaired fasting glucose] Onset: 08-15-2021 Episodic Neoplasms of unspecified nature or uncertain behavior (2 sources) Neoplasm of unspecified behavior of bone, soft tissue, and skin; Translations: [Neoplasm of unspecified behavior of bone, soft tissue, and skin] Onset: 06-20-2023 Episodic Other and unspecified benign neoplasm (9 [...] malignant neoplasm of colon] Onset: 07-26-2021 Episodic [place]-; endo-; and myocarditis; cardiomyopathy (except that caused by tuberculosis or sexually transmitted disease) (2 sources) Acute and subacute infective endocarditis; Translations: [Acute and subacute infective endocarditis] Onset: 06-20-2023 Episodic Residual codes; unclassified (20 sources) Postoperative state; Translations: [Other specified postprocedural states] Onset: 02-08-2021 02-08-2021 Episodic Spondylosis; intervertebral disc disorders; other back problems (6 sources) Radiculopathy, lumbar region; Translations: [Spinal stenosis, cervical region] Onset: 01-17-2023 Episodic Unclassified (1 source) Low back pain, unspecified M54.50 Unclassified (1 source) Other pericardial effusion (noninflammatory); Translations: [Other pericardial effusion (noninflammatory)] Onset: 09-02-2023 Unclassified (1 source) Acute cough; Translations: [Acute cough] Onset: 08-14-2023 Unclassified (1 source) Supraventricular tachycardia, unspecified; Translations: [Supraventricular tachycardia, unspecified] Onset: 07-25-2023 Results Test Name Value Interpretation Reference Range Facility 36on 10-07-2023 36 Normal [facility] Follow-Upon 10-07-2023 Follow-Up Normal [facility] Orders Onlyon 10-07-2023 Orders Only Normal [facility] Telephoneon 10-07-2023 Telephone Normal [facility] ED Clinical Summaryon 2023 ED Clinical Summary [facility] ? Urgent Care [address] [place] [address] Clinical Summary PERSON INFORMATION Name: NEHAL BAIG Age: 52 Years Sex: MALE : 1970 MRN: Acct#: Visit Reason: Medical screening exam; DOT PHYSICAL Arrival: 09/26/2023 09:05:07 Discharge: 09/26/2023 10:39:00 LOS: 000 01:34 Check In: 09/26/2023 09:05:07 Checkout: 09/26/2023 10:39:00 Address: [address] [place] [id number] PCP: CHANDRAKANT BERNAL PROVIDER INFORMATION Provider Role Assigned Unassigned POLY KAUR ED PA 09/26/2023 09:09:57 Kimberlyn Rodríguez MA ED Nurse 09/26/2023 09:36:27 VITALS INFORMATION Vital Sign Triage Latest Temperature Tympanic Temperature Temporal Artery Pulse Rate O2 Sat 98 % 98 % Respiratory Rate Blood Pressure /78 mmHg /78 mmHg MEDICAL INFORMATION Medications Given: Allergy Information: No Known Medication Allergies PHYSICIAN DOCUMENTATION DISCHARGE INFORMATION: Discharge Disposition: Home Discharge Location: Home PATIENT EDUCATION INFORMATION Instructions: Follow-Up: With: Address: When: CHANDRAKANT BERNAL [address] [place] [address] [phone] Business (1) , only if needed DIAGNOSIS: Physical exam Patient Understands: Yes - Patient/family/caregiver verbalizes understanding of instructions given Comment: Normal [facility] ED Patient Summaryon 024 ED Patient Summary [facility] ? Urgent Care [address] [place] [address] PATIENT DISCHARGE INSTRUCTIONS Patient Information Name: NEHAL BAIG Age: 52 Years Date of : 1970 [facility]: [id number] Reason For Visit: Medical screening exam; DOT PHYSICAL Arrival Time: 09/26/2023 09:05:07 Primary Care Physician: CHANDRAKANT BERNAL Attending Physician: Joel Bledsoe PA-C Comment: Patient Education With: Address: When: CHANDRAKANT BERNAL [address] [place] [address] [address] [place] [phone] Business (1) , only if needed Medication Information: The exam and treatment you received today in the [facility] Emergency Department were for an urgent problem and are not intended as complete care. It is important for you to follow up with a doctor, nurse practitioner, or physician?s assistant mechanic for ongoing care. If your symptoms become [...] we can reach you if necessary. [facility] Emergency Department has provided you with a complete list of medications post discharge. 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 director surgical/provider of your visit and for further instruction on these medications. Any specific questions regarding your chronic medications and dosages should be discussed with your primary care physician(s) and/or pharmacist. Medications to Continue That Have Not Changed Other Medications acetaminophen-hydrocodone (acetaminophen-hydrocodone 325 mg-7.5 mg oral tablet) 1 tab(s) Oral (given by mouth) every 4 hours. as needed as needed for pain. aspirin (aspirin 81 mg oral capsule) 1 cap(s) Oral (given by mouth) every day. colchicine (colchicine 0.6 mg oral tablet) TAKE ONE TABLET BY MOUTH TWICE DAILY. dapagliflozin (Farxiga 10 mg oral tablet) TAKE ONE TABLET BY MOUTH IN THE MORNING. gabapentin (gabapentin 400 mg oral capsule) TAKE 2 CAPSULES BY MOUTH IN THE MORNING, 1 AT NOON, AND 2 AT BEDTIME. ibuprofen (ibuprofen 600 mg oral tablet) 1 tab(s) Oral (given by mouth) 4 times a day as needed for pain. lisinopril (lisinopril 10 mg oral tablet) 1 tab(s) Oral (given by mouth) every day. metoprolol (Metoprolol Succinate ER 25 mg oral tablet, extended release) 1 tab(s) Oral (given by mouth) every day. multivitamin with iron (Tab-A-Vikki with Iron oral tablet) 1 tab(s) Oral (given by mouth) every day. omeprazole (omeprazole 20 mg oral delayed release capsule) 1 cap(s) Oral (given by mouth) every day. spironolactone (spironolactone 25 mg oral tablet) TAKE 1/2 TABLET BY MOUTH IN THE MORNING. valsartan (valsartan 40 mg oral tablet) TAKE ONE TABLET BY MOUTH IN THE MORNING. Hold medication if Systolic blood pressure is < 110. Visit Information Visit Diagnosis: Diagnoses This Visit Medical screening exam ([id number]) Physical exam (Z00.00) If you received any narcotics, sedation, or [...] legal documents Reason for Visit: Medical screening DOT phy Allergies: Substance Reaction Symptoms Type Comments No Known Medication Allergies Drug Vital Signs: Vitals and Measurements this Visit (last charted value for your 09/26/2023 visit) Vital Signs This Visit Temperature Oral: 36.2 DegC Apical Heart Rate: 74 bpm Respiratory Rate: 18 br/min Systolic Blood Pressure: 120 mmHg Diastolic Blood Pressure: 78 mmHg SpO2: 98 % Blood Pressure Method: Automatic Measurements This Visit Height/Length Measured: 185.42 cm Weight Measured: 158.76 kg Weight Dosin.760 kg Body Mass Index: 46.18 kg/m2 BSA Measured: 2.86 m2 Problems List: Problem Onset Comments Diabetes GERD (gastroesophageal reflux disease) Heart valve problem Hypertension Major Tests and Procedures: The following procedures and tests were performed during your ED visit. Laboratory Glucose Level POCT Blood, Collected, 09/26/23 10:17:49 EDT, RT collect Urinalysis Standard Urin (more content not included)... 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 POCT Glucose Levelon 024 Glucose [Mass/Vol] 112 mg/dL Normal 74-118 [facility] Comment on above: Result Comment: OPR_ ID=[email or web address],TGC FLAG = False,Meter:[id number] Floor Helper:Remy Montes Performed By: #### 4 [id number] ####[facility] (DEFAULT)[address] [place] [id number] UA Standardon 09-26-2023 Breakpoint UA [facility] Comment on above: Performed By: #### 1 [id number] #### [facility] (DEFAULT) [address] [place] [address] 20968 Color (U) Yellow [facility] Comment on above: Performed By: #### 1 [id number] #### [facility] (DEFAULT) [address] [place] [address] 16089 Glucose (U) [Mass/Vol] mg/dL [facility] Comment on above: Performed By: #### 1 [id number] #### [facility] (DEFAULT) [address] [place] [address] 67291 Ketones Ql (U) TRACE [facility] Comment on above: Performed By: #### 1 [id number] #### [facility] (DEFAULT) [address] [place] [address]404 UA Bilirubin Negative [facility] Comment on above: Performed By: #### 1 [id number] #### [facility] (DEFAULT) [address] [place] [address]16[address] UA Blood Negative Normal NEGATIVE [facility] Comment on above: Performed By: #### 1 [id number] #### [facility] (DEFAULT) [address] [place] [address] UA Clarity CLEAR Normal CLEAR [facility] Comment on above: Performed By: #### 1 [id number] #### [facility] (DEFAULT) [address] [place] [address] UA Leuk Est Negative Normal NEGATIVE [facility] Comment on above: Performed By: #### 1 [id number] #### [facility] (DEFAULT) [address] [place] [address] UA Nitrite Negative Normal NEGATIVE [facility] Comment on above: Performed By: #### 1 [id number] #### [facility] (DEFAULT) [address] [place] [address] 53551 UA pH 6.0 Normal 5-8 [facility] Comment on above: Performed By: #### 1 [id number] #### [facility] (DEFAULT) [address] [place] [address] 16795 UA Protein 100 Abnormal NEGATIVE [facility] Comment on above: Performed By: #### 1 [id number] #### [facility] (DEFAULT) [address] [place] [address] 47672 UA Spec Grav >=1.030 Normal 1.001-1.035 [facility] Comment on above: Performed By: #### 1 [id number] #### [facility] (DEFAULT) [address] [place] [address] UA Urobilinogen 0.2 mg/dL Normal 0.2-1.0 [facility] Comment on above: Performed By: #### 1 [id number] #### [facility] (DEFAULT) [address] [place] [address] Urine Source Clean Catch Normal [facility] Comment on above: Performed By: #### 1 [id number] #### [facility] (DEFAULT) [address] [place] [address] Urgent Care Note- Provideron 09-26-2023 Urgent Care Note- Provider Patient: NEHAL BAIG Age: 52 years Sex: MALE : 1970 Associated Diagnoses: Physical exam Author: POLY KAUR Subjective Patient presents for 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 Patient does report that he has a history of sleep apnea and wears BiPAP nightly. States he has been compliant wearing this every night. He denies any daytime sleepiness. Patient also reports he recently had a mechanical heart valve placed approximately 3 months ago. He states that he does not have any chest pain or shortness of breath or dizziness. Indicates that his doctor told him it was okay to go back to work. Health Status Allergies: Allergic Reactions (Selected) No Known Medication Allergies Problem list (past medical history): All Problems Hypertension / SNOMED CT 6224743098 / Confirmed GERD (gastroesophageal reflux disease) / SNOMED CT 496794185 / Confirmed Diabetes / SNOMED CT 233111377 / Confirmed Objective CONST: -Obese -Acute distress: No -Vitals: reviewed. SKIN: -Gross abnormalities: No CARD: -Rate and rhythm: Regular RESP: -Respiratory effort and chest excursion with respirations: Normal -Breath sounds equal bilaterally: Clear -Wheezes: No -Rales: No BACK: -Signs of pain with movement: No EXT: Gross appearance and use of all four extremities: Unremarkable NEURO: -Patient: alert -Oriented to: person, place and time. -Appearance and judgment: appropriate. Results Review Results review Lab results 09/26/2023 10:17 EDT Glucose, POC 112 mg/dL 09/26/2023 9:33 EDT UA Color Yellow UA Clarity CLEAR UA Glucose >=1000 UA Ketones TRACE UA Spec Grav >=1.030 UA Blood NEGATIVE UA pH 6.0 UA Protein 100 UA Urobilinogen 0.2 mg/dL UA Nitrite NEGATIVE UA Leuk Est NEGATIVE UA Bilirubin NEGATIVE Urine Source Clean Catch Impression and Plan Assessment and Plan: Diagnosis: Physical exam ([id number] Z00.00). Orders Orders Patient Care: Glucose POC (RE) (Order): 09/26/2023 10:15 EDT. . Patient's urinalysis today shows greater than 1000 glucose and 100 protein. Patient's blood sugar was checked in occupational health clinic today and was 112. Patient denies having any history of diabetes or being on any medications for these. I strongly recommended him to have this reevaluated with his primary care provider. Patient also recently had a mechanical heart valve placed approximately 3 to 4 months ago. 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 Patient also shows a echocardiogram from 1 week ago that shows an ejection fraction of 35%. Patient's recent INR's are not in range of 2.5-3.5 which is required by mechanical heart valve. I discussed this with him indicated that he will need a letter releasing him stating he is okay to drive from his waste water worker, I indicated that he needs an echocardiogram that shows an ejection fraction of 40% or greater and also at least 2 months of INRs that are within good adequate range for anticoagulation with his heart valve. Indicated that I would not be able to certify him today. Patient indicated he did not want me to do any further physical examination at this time and would return with appropriate paperwork. Patient also has a history of sleep apnea he did show me a report which was printed off showing good compliance. [Electronically Signed on: 09/26/2023 11:04 EDT] POLY KAUR [Verified on: 09/26/2023 11:04 EDT] POLY KAUR [facility] Recordon 09-25- 024 Urgent Care Record [facility] ? Urgent Care [address] [place] [address] PATIENT DISCHARGE INSTRUCTIONS Patient Information Name: NEHAL BAIG Age: 52 Years Date of : 1970 Reason For Visit: DOT PHYSICAL Arrival Time: 09/26/2023 09:05:07 Primary Care Physician: CHANDRAKANT BERNAL Attending Physician: Joel Bledsoe PA-C Comment: Visit Diagnosis: Diagnoses This Visit No Visit Diagnoses Documented If you received any narcotics, sedation, or [...] sign any legal documents With: Address: When: CHANDRAKANT BERNAL [facility], [address] [place], [place] [id number] Business (1) , only if needed Medication Information: The exam and treatment you received today in the [facility] were for an urgent problem and are not intended as complete care. It is important for you to follow up with a doctor, nurse practitioner, or physician?s assistant mechanic for ongoing care. If your symptoms become [...] we can reach you if necessary. [facility] has provided you with a complete list of medications post discharge. 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 director surgical/provider of your visit and for further instruction [...] this Visit (last charted value for your 09/26/2023 visit) No vitals and measurements documented Problems List: Problem Onset Comments Diabetes GERD [...] for Disease Control and Prevention November 2013 [facility] Abstracton 09-20-2023 Abstract Normal [facility] Follow-Upon 09-19-2023 [facility] 30on 09-06-2023 30 Normal [facility] 30 Normal [facility] BASIC METABOLIC PANELon Anion gap [Moles/Vol] 13 mmol/L Normal 10-18 [facility] Comment on above: Performed By: #### L [id number] ####[facility] (BEAKER)[address] [place] [address] Calcium [Mass/Vol] 9.8 mg/dL Normal 8.6-10.3 [facility] Comment on above: Performed By: #### L [id number] ####[facility] (BEAKER)[address] [place] [address] Chloride [Moles/Vol] 97 mmol/L Low 98-107 [facility] Comment on above: Performed By: #### L [id number] ####[facility] ([facility])[address] [place] [address] CO2 [Moles/Vol] 31 mmol/L Normal 21-31 [facility] Comment on above: Performed By: #### L [id number] ####[facility] ([facility])[address] [place] [address] Creatinine [Mass/Vol] 1.03 mg/dL Normal 0.70-1.30 [facility] Comment on above: Performed By: #### L [id number] ####[facility] ([facility])[address] [place] [address] GLOMERULAR FILTRATION RATE ML/MIN/1.73 SQ M.PREDICTED 88.5 mL/min/1.73m*2 Normal >60.0 [facility] Comment on above: Result Comment: The [facility]???s estimated glomerular filtration rate (eGFR) will no [...] of individuals. Performed By: #### L [id number] ####[facility] ([facility] [place] [address] Glucose [Mass/Vol] 140 mg/dL High 70-100 [facility] Comment on above: Performed By: #### L [id number] ####[facility] ([facility])[address] [place] [address] Potassium [Moles/Vol] 4.6 mmol/L Normal 3.5-5.1 [facility] Comment on above: Performed By: #### L [id number] ####[facility] ([facility])[address] [place] [address] Sodium [Moles/Vol] 136 mmol/L Normal 136-145 [facility] Comment on above: Performed By: #### L [id number] ####[facility] ([facility])[address] [place] [address] Urea nitrogen [Mass/Vol] 17 mg/dL Normal 7-25 [facility] Comment on above: Performed By: #### L [id number] ####[facility] ([facility])[address] [place] [address] UREA NITROGEN/CREATININE (MASS RATIO) IN SER/PLAS 16.5 Normal [facility] Comment on above: Performed By: #### L [id number] ####[facility] ([facility])[address] [place] [address] CBCon 09-06-2023 Erythrocyte distribution width (RBC) [Ratio] 15.3 % High 11.5-15.0 [facility] Comment on above: Performed By: #### L [id number] ####[facility] ([facility])[address] [place] [address] ERYTHROCYTE MEAN CORPUSCULAR HEMOGLOBIN CONCENTRATION (G/DL) BY AUTOMATED 29.9 g/dL Low 32.0-35.0 [facility] Comment on above: Performed By: #### L [id number] ####[facility] ([facility])[address] [place] [address] Hematocrit (Bld) [Volume fraction] 40.1 % Normal 39.0-55.0 [facility] Comment on above: Performed By: #### L [id number] ####[facility] (BEAKER)[address] [place] [address] Hemoglobin (Bld) [Mass/Vol] 12.0 g/dL Low 13.0-17.0 [facility] Comment on above: Performed By: #### L [id number] ####[facility] (BEAKER)[address] [place] [address] MCH (RBC) [Entitic mass] 23.9 pg Low 27.0-33.0 [facility] Comment on above: Performed By: #### L [id number] ####[facility] ([facility])[address] [place] [address] MCV (RBC) [Entitic vol] 79.7 fL Low 82.0-98.0 [facility] Comment on above: Performed By: #### L [id number] ####[facility] ([facility])[address] [place] [address] PLATELETS (10*3/UL) IN BLOOD AUTOMATED COUNT 273 10*3/uL Normal 150-400 [facility] Comment on above: Performed By: #### L [id number] ####[facility] ([facility])[address] [place] [address] RBC (Bld) [#/Vol] 5.03 10*6/uL Normal 4.20-5.70 [facility] Comment on above: Performed By: #### L [id number] ####[facility] ([facility])[address] [place] [address] WBC (Bld) [#/Vol] 6.25 10*3/uL Normal 4.00-10.60 [facility] Comment on above: Performed By: #### L [id number] ####[facility] ([facility])[address] [place] [address] DSon 09-06-2023 DS Normal [facility] MAGNESIUMon 09-06-2023 Magnesium [Mass/Vol] 2.1 mg/dL Normal 1.9-2.7 [facility] Comment on above: Performed By: #### L [id number] ####[facility] ([facility])[address] [place] [address] PHOSPHORUSon 09-06-2023 Magnesium [Mass/Vol] 5.0 mg/dL Normal 2.5-5.0 [facility] Comment on above: Performed By: #### L [id number] ####[facility] ([facility])[address] [place] [address] PROTIME-INRon 09-06-2023 INR IN PPP BY COAGULATION ASSAY 1.58 High 0.90-1.10 [facility] Comment on above: Result Comment: ACCC P [...] CHEST 1995;108:231S-246S. Performed By: #### L [id number] ####[facility] Organizer)[address] [place] [address] PROTHROMBIN TIME (PT) IN PPP BY COAGULATION ASSAY 18.7 Seconds High 12.3-14.8 [facility] Comment on above: Performed By: #### L [id number] ####[facility] Organizer)[address] [place] [address] 30on 09-05-2023 30 Normal [facility] 30 Normal [facility] BASIC METABOLIC PANELon Anion gap [Moles/Vol] 12 mmol/L Normal 7-20 [facility] Comment on above: Performed By: #### L [id number] ####[facility] Organizer)[address] [place] [address] Calcium [Mass/Vol] 9.5 mg/dL Normal 8.6-10.3 [facility] Comment on above: Performed By: #### L [id number] ####[facility] ([facility])[address] [place] [address] Chloride [Moles/Vol] 96 mmol/L Low 98-107 [facility] Comment on above: Performed By: #### L [id number] ####[facility] ([facility])[address] [place] [address] CO2 [Moles/Vol] 32 mmol/L High 21-31 [facility] Comment on above: Performed By: #### L [id number] ####[facility] ([facility])[address] [place] [address] Creatinine [Mass/Vol] 0.96 mg/dL Normal 0.70-1.30 [facility] Comment on above: Performed By: #### L [id number] ####[facility] ([facility])[address] [place] [address] GLOMERULAR FILTRATION RATE ML/MIN/1.73 SQ M.PREDICTED 96.3 mL/min/1.73m*2 Normal >60.0 [facility] Comment on above: Result Comment: The [facility]???s estimated glomerular filtration rate (eGFR) will no [...] of individuals. Performed By: #### L [id number] ####[facility] ([facility])[address] [place] [address] Glucose [Mass/Vol] 102 mg/dL High 70-100 [facility] Comment on above: Performed By: #### L [id number] ####[facility] ([facility])[address] [place] [address] Potassium [Moles/Vol] 4.6 mmol/L Normal 3.5-5.1 [facility] Comment on above: Performed By: #### L [id number] ####[facility] ([facility])[address] [place] [address] Sodium [Moles/Vol] 135 mmol/L Low 136-145 [facility] Comment on above: Performed By: #### L [id number] ####[facility] ([facility])[address] [address] Urea nitrogen [Mass/Vol] 15 mg/dL Normal 7-25 [facility] Comment on above: Performed By: #### L [id number] ####[facility] ([facility])[address] [address] UREA NITROGEN/CREATININE (MASS RATIO) IN SER/PLAS 15.6 Normal [facility] Comment on above: Performed By: #### L [id number] ####[facility] ([facility])[address] [address] CBCon 09-05-2023 Erythrocyte distribution width (RBC) [Ratio] 15.5 % High 11.5-15.0 [facility] Comment on above: Performed By: #### L [id number] ####[facility] ([facility])[address] [address] ERYTHROCYTE MEAN CORPUSCULAR HEMOGLOBIN CONCENTRATION (G/DL) BY AUTOMATED 30.5 g/dL Low 32.0-35.0 [facility] Comment on above: Performed By: #### L [id number] ####[facility] ([facility])[address] [place] [address] Hematocrit (Bld) [Volume fraction] 38.0 % Low 39.0-55.0 [facility] Comment on above: Performed By: #### L [id number] ####[facility] (BEAKER)[address] [address] Hemoglobin (Bld) [Mass/Vol] 11.6 g/dL Low 13.0-17.0 [facility] Comment on above: Performed By: #### L [id number] ####[facility] ([facility])[address] [place] [address] MCH (RBC) [Entitic mass] 23.9 pg Low 27.0-33.0 [facility] Comment on above: Performed By: #### L [id number] ####[facility] ([facility])[address] [address] MCV (RBC) [Entitic vol] 78.4 fL Low 82.0-98.0 [facility] Comment on above: Performed By: #### L [id number] ####[facility] ([facility])[address] [place] [address] PLATELETS (10*3/UL) IN BLOOD AUTOMATED COUNT 247 10*3/uL Normal 150-400 [facility] Comment on above: Performed By: #### L [id number] ####[facility] ([facility])[address] [place] [address] RBC (Bld) [#/Vol] 4.85 10*6/uL Normal 4.20-5.70 [facility] Comment on above: Performed By: #### L [id number] ####[facility] ([facility])[address] [address] WBC (Bld) [#/Vol] 6.30 10*3/uL Normal 4.00-10.60 [facility] Comment on above: Performed By: #### L [id number] ####[facility] ([facility])[address] [place] [address] MAGNESIUMon 09-05-2023 Magnesium [Mass/Vol] 2.0 mg/dL Normal 1.9-2.7 [facility] Comment on above: Performed By: #### L [id number] ####[facility] ([facility])[address] [address] PHOSPHORUSon 09-05-2023 Magnesium [Mass/Vol] 5.2 mg/dL High 2.5-5.0 [facility] Comment on above: Performed By: #### L [id number] ####[facility] (BEAKER)[address] [place] [address] PROTIME-INRon 09-05-2023 INR IN PPP BY COAGULATION ASSAY 1.64 High 0.90-1.10 [facility] Comment on above: Result Comment: ACCC P [...] CHEST 1995;108:231S-246S. Performed By: #### L [id number] ####[facility] ([place])[address] [place] [address] PROTHROMBIN TIME (PT) IN PPP BY COAGULATION ASSAY 19.2 Seconds High 12.3-14.8 [facility] Comment on above: Performed By: #### L [id number] ####[facility] (BEAKER)[address] [place] [address] 30on 09-04-2023 30 Normal [facility] 30 Normal [facility] BASIC METABOLIC PANELon Anion gap [Moles/Vol] 12 mmol/L Normal 7-20 [facility] Comment on above: Performed By: #### L [id number] ####[facility] (BEAKER)[address] [place] [address] Calcium [Mass/Vol] 9.1 mg/dL Normal 8.6-10.3 [facility] Comment on above: Performed By: #### L [id number] ####[facility] ([facility])[address] [place] [address] Chloride [Moles/Vol] 96 mmol/L Low 98-107 [facility] Comment on above: Performed By: #### L [id number] ####[facility] ([facility])[address] [place] [address] CO2 [Moles/Vol] 30 mmol/L Normal 21-31 [facility] Comment on above: Performed By: #### L [id number] ####[facility] ([facility])[address] [place] [address] Creatinine [Mass/Vol] 0.88 mg/dL Normal 0.70-1.30 [facility] Comment on above: Performed By: #### L [id number] ####[facility] ([facility])[address] [place] [address] GLOMERULAR FILTRATION RATE ML/MIN/1.73 SQ M.PREDICTED 104.8 mL/min/1.73m*2 Normal >60.0 [facility] Comment on above: Result Comment: The [facility]???s estimated glomerular filtration rate (eGFR) will no [...] of individuals. Performed By: #### L [id number] ####[facility] ([facility])[address] [place] [address] Glucose [Mass/Vol] 93 mg/dL Normal 70-100 [facility] Comment on above: Performed By: #### L [id number] ####[facility] (BEAKER)[address] [place] [address] Potassium [Moles/Vol] 4.0 mmol/L Normal 3.5-5.1 [facility] Comment on above: Performed By: #### L [id number] ####[facility] (BEAKER)[address] [place] [address] Sodium [Moles/Vol] 134 mmol/L Low 136-145 [facility] Comment on above: Performed By: #### L [id number] ####[facility] (BEAKER)[address] [place] [address] Urea nitrogen [Mass/Vol] 16 mg/dL Normal 7-25 [facility] Comment on above: Performed By: #### L [id number] ####[facility] (BEAKER)[address] [place] [address] UREA NITROGEN/CREATININE (MASS RATIO) IN SER/PLAS 18.2 Normal [facility] Comment on above: Performed By: #### L [id number] ####[facility] (BEAKER)[address] [place] [address] CBCon 09-04-2023 Erythrocyte distribution width (RBC) [Ratio] 15.7 % High 11.5-15.0 [facility] Comment on above: Performed By: #### L [id number] ####[facility] (BEAKER)[address] [place] [address] ERYTHROCYTE MEAN CORPUSCULAR HEMOGLOBIN CONCENTRATION (G/DL) BY AUTOMATED 31.0 g/dL Low 32.0-35.0 [facility] Comment on above: Performed By: #### L [id number] ####[facility] (BEAKER)[address] [place] [address] Hematocrit (Bld) [Volume fraction] 34.5 % Low 39.0-55.0 [facility] Comment on above: Performed By: #### L [id number] ####[facility] (BEAKER)[address] [place] [address] Hemoglobin (Bld) [Mass/Vol] 10.7 g/dL Low 13.0-17.0 [facility] Comment on above: Performed By: #### L [id number] ####[facility] ([facility])[address] [place] [address] MCH (RBC) [Entitic mass] 24.4 pg Low 27.0-33.0 [facility] Comment on above: Performed By: #### L [id number] ####[facility] ([facility])[address] [place] [address] MCV (RBC) [Entitic vol] 78.8 fL Low 82.0-98.0 [facility] Comment on above: Performed By: #### L [id number] ####[facility] ([facility])[address] [place] [address] PLATELETS (10*3/UL) IN BLOOD AUTOMATED COUNT 221 10*3/uL Normal 150-400 [facility] Comment on above: Performed By: #### L [id number] ####[facility] ([facility])[address] [place] [address] RBC (Bld) [#/Vol] 4.38 10*6/uL Normal 4.20-5.70 [facility] Comment on above: Performed By: #### L [id number] ####[facility] ([facility])[address] [place] [address] WBC (Bld) [#/Vol] 9.37 10*3/uL Normal 4.00-10.60 [facility] Comment on above: Performed By: #### L [id number] ####[facility] ([facility])[address] [place] [address] MAGNESIUMon 09-04-2023 Magnesium [Mass/Vol] 1.8 mg/dL Low 1.9-2.7 [facility] Comment on above: Performed By: #### L [id number] ####[facility] (BEAKER)[address] [place] [address] PHOSPHORUSon 09-04-2023 Magnesium [Mass/Vol] 4.4 mg/dL Normal 2.5-5.0 [facility] Comment on above: Performed By: #### L [id number] ####[facility] ([place])[address] [place] [address] PROTIME-INRon 09-04-2023 INR IN PPP BY COAGULATION ASSAY 1.60 High 0.90-1.10 [facility] Comment on above: Result Comment: ACCC P [...] CHEST 1995;108:231S-246S. Performed By: #### L [id number] ####[facility] ([place])[address] [place] [address] PROTHROMBIN TIME (PT) IN PPP BY COAGULATION ASSAY 18.8 Seconds High 12.3-14.8 [facility] Comment on above: Performed By: #### L [id number] ####[facility] ([place])[address] [place] [address] 30on 09-03-2023 30 Normal [facility] 30 Normal [facility] ANESon 09-03-2023 ANES Normal [facility] APTTon 09-03-2023 ACTIVATED PARTIAL THROMBOPLASTIN TIME IN PPP BY COAGULATION ASSAY 32.6 Seconds Normal 25.0-35.0 [facility] Comment on above: Result Comment: Clin ical significance of the APTT is questionable in the presence of heparin. Performed By: #### L [id number] ####[facility] (BEAKER)[address] [place] [address] BASIC METABOLIC PANELon 06-0 Anion gap [Moles/Vol] 11 mmol/L Normal 7-20 [facility] Comment on above: Performed By: #### L [id number] ####[facility] ([facility])[address] [place] [address] Calcium [Mass/Vol] 9.2 mg/dL Normal 8.6-10.3 [facility] Comment on above: Performed By: #### L [id number] ####[facility] ([facility])[address] [place] [address] Chloride [Moles/Vol] 100 mmol/L Normal 98-107 [facility] Comment on above: Performed By: #### L [id number] ####[facility] ([facility])[address] [place] [address] CO2 [Moles/Vol] 29 mmol/L Normal 21-31 [facility] Comment on above: Performed By: #### L [id number] ####[facility] (BEAKER)[address] [place] [address] Creatinine [Mass/Vol] 1.11 mg/dL Normal 0.70-1.30 [facility] Comment on above: Performed By: #### L [id number] ####[facility] ([facility])[address] [place] [address] GLOMERULAR FILTRATION RATE ML/MIN/1.73 SQ M.PREDICTED 80.9 mL/min/1.73m*2 Normal >60.0 [facility] Comment on above: Result Comment: [facility]???s estimated glomerular filtration rate (eGFR) will no [...] of individuals. Performed By: #### L [id number] ####[facility] ([facility])[address] [place] [address] Glucose [Mass/Vol] 119 mg/dL High 70-100 [facility] Comment on above: Performed By: #### L [id number] ####[facility] ([facility])[address] [place] [address] Potassium [Moles/Vol] 4.3 mmol/L Normal 3.5-5.1 [facility] Comment on above: Performed By: #### L [id number] ####[facility] ([facility])[address] [place] [address] Sodium [Moles/Vol] 136 mmol/L Normal 136-145 [facility] Comment on above: Performed By: #### L [id number] ####[facility] ([facility])[address] [place] [address] Urea nitrogen [Mass/Vol] 22 mg/dL Normal 7-25 [facility] Comment on above: Performed By: #### L [id number] ####[facility] ([facility])[address] [place] [address] UREA NITROGEN/CREATININE (MASS RATIO) IN SER/PLAS 19.8 Normal [facility] Comment on above: Performed By: #### L [id number] ####[facility] ([facility])[address] [place] [address] Anion gap [Moles/Vol] 11 mmol/L Normal 7-20 [facility] Comment on above: Performed By: #### L [id number] ####[facility] ([facility])[address] [place] [address] Calcium [Mass/Vol] 9.1 mg/dL Normal 8.6-10.3 [facility] Comment on above: Performed By: #### L [id number] ####[facility] ([facility])[address] [place] [address] Chloride [Moles/Vol] 98 mmol/L Normal 98-107 [facility] Comment on above: Performed By: #### L [id number] ####[facility] ([facility])[address] [place] [address] CO2 [Moles/Vol] 30 mmol/L Normal 21-31 [facility] Comment on above: Performed By: #### L [id number] ####[facility] ([facility])[address] [place] [address] Creatinine [Mass/Vol] 1.25 mg/dL Normal 0.70-1.30 [facility] Comment on above: Performed By: #### L [id number] ####[facility] ([facility])[address] [place] [address] GLOMERULAR FILTRATION RATE ML/MIN/1.73 SQ M.PREDICTED 70.2 mL/min/1.73m*2 Normal >60.0 [facility] Comment on above: Result Comment: The [facility]???s estimated glomerular filtration rate (eGFR) will no [...] of individuals. Performed By: #### L [id number] ####[facility] ([facility])[address] [place] [address] Glucose [Mass/Vol] 105 mg/dL High 70-100 [facility] Comment on above: Performed By: #### L [id number] ####[facility] ([facility])[address] [place] [address] Potassium [Moles/Vol] 4.2 mmol/L Normal 3.5-5.1 [facility] Comment on above: Performed By: #### L [id number] ####[facility] ([facility])[address] [place] [address] Sodium [Moles/Vol] 135 mmol/L Low 136-145 [facility] Comment on above: Performed By: #### L [id number] ####[facility] ([facility])[address] [place] [address] Urea nitrogen [Mass/Vol] 22 mg/dL Normal 7-25 [facility] Comment on above: Performed By: #### L [id number] ####[facility] ([facility])[address] [place] [address] UREA NITROGEN/CREATININE (MASS RATIO) IN SER/PLAS 17.6 Normal [facility] Comment on above: Performed By: #### L [id number] ####[facility] ([facility])[address] [place] [address] BLOOD CULTUREon 09-03-2023 Bacteria identified Cx Nom (Bld) No growth at 5 days Normal [facility] Comment on above: Order Comment: Place d Back on Insturment Performed By: #### L [id number] ####[facility] ([facility])[address] [place] [address] Order Comment: From a different site than #1. BODY FLUID CELL DIFFERENTIAL on 09-03-2023 BASOPHILS TOTAL PER COUNTED LEUKOCYTES IN BODY FLUID BY MANUAL COUNT 2 Normal [facility] Comment on above: Order Comment: Diffe rential performed on cytospin Performed By: #### L [id number] ####[facility] ([facility])[address] [place] [address] CELLS COUNTED TOTAL (#) IN BODY FLUID 100 Normal [facility] Comment on above: Order Comment: Diffe rential performed on cytospin Performed By: #### L [id number] ####[facility] ([facility])[address] [place] [address] EOSINOPHILS TOTAL PER COUNTED LEUKOCYTES IN BODY FLUID BY MANUAL COUNT 3 [facility] Comment on above: Order Comment: Diffe rential performed on cytospin Performed By: #### L [id number] ####[facility] ([facility])[address] [place] [address] LYMPHOCYTES TOTAL PER COUNTED LEUKOCYTES IN BODY FLUID BY MANUAL COUNT 53 [facility] Comment on above: Order Comment: Diffe rential performed on cytospin Performed By: #### L [id number] ####[facility] ([facility])[address] [place] [address] MESOTHELIAL CELLS TOTAL PER COUNTED LEUKOCYTES IN BODY FLUID BY MANUAL COUN 1 [facility] Comment on above: Order Comment: Diffe rential performed on cytospin Performed By: #### L [id number] ####[facility] ([facility])[address] [facility] [address] MONOCYTES+MACROPHAGE S TOTAL PER COUNTED LEUKOCYTES IN BODY FLUID BY MANUAL 0 [facility] Comment on above: Order Comment: Diffe rential performed on cytospin Performed By: #### L [id number] ####[facility] ([facility])[address] [facility] [address] NEUTROPHILS TOTAL PER COUNTED LEUKOCYTES IN BODY FLUID BY MANUAL COUNT 41 [facility] Comment on above: Order Comment: Diffe rential performed on cytospin Performed By: #### L [id number] ####[facility] ([facility])[address] [facility] [address] OTHER CELLS BODY FLUID (MANUAL) 0 [facility] Comment on above: Order Comment: Diffe rential performed on cytospin Performed By: #### L [id number] ####[facility] ([facility])[address] [facility] [address] BODY FLUID CULTUREon 024 Bacteria identified Cx Nom (Unsp spec) No growth at 5 days Normal [facility] Comment on above: Performed By: #### L [id number] ####[facility] ([facility])[address] [place] [address] GRAM STAIN RESULT Normal [facility] Comment on above: Result Comment: Poly morphonuclear leukocytesNo organisms seen Performed By: #### L [id number] ####[facility] ([facility])[address] [place] [address] C-REACTIVE PROTEINon 024 C REACTIVE PROTEIN (MG/L) IN SER/PLAS 20.7 mg/L High 0.0-7.0 [facility] Comment on above: Performed By: #### L [id number] ####[facility] ([facility])[address] [place] [address] CBCon 09-03-2023 Erythrocyte distribution width (RBC) [Ratio] 15.4 % High 11.5-15.0 [facility] Comment on above: Performed By: #### L [id number] ####[facility] ([facility])[address] [place] [address] ERYTHROCYTE MEAN CORPUSCULAR HEMOGLOBIN CONCENTRATION (G/DL) BY AUTOMATED 30.5 g/dL Low 32.0-35.0 [facility] Comment on above: Performed By: #### L [id number] ####[facility] ([facility])[address] [place] [address] Hematocrit (Bld) [Volume fraction] 36.4 % Low 39.0-55.0 [facility] Comment on above: Performed By: #### L [id number] ####[facility] ([facility])[address] [place] [address] Hemoglobin (Bld) [Mass/Vol] 11.1 g/dL Low 13.0-17.0 [facility] Comment on above: Performed By: #### L [id number] ####[facility] ([facility])[address] [place] [address] MCH (RBC) [Entitic mass] 24.7 pg Low 27.0-33.0 [facility] Comment on above: Performed By: #### L [id number] ####[facility] ([facility])[address] [place] [address] MCV (RBC) [Entitic vol] 81.1 fL Low 82.0-98.0 [facility] Comment on above: Performed By: #### L [id number] ####[facility] ([facility])[address] [place] [address] PLATELETS (10*3/UL) IN BLOOD AUTOMATED COUNT 228 10*3/uL Normal 150-400 [facility] Comment on above: Performed By: #### L [id number] ####[facility] ([facility])[address] [place] [address] RBC (Bld) [#/Vol] 4.49 10*6/uL Normal 4.20-5.70 [facility] Comment on above: Performed By: #### L [id number] ####[facility] ([facility])[address] [place] [address] WBC (Bld) [#/Vol] 9.94 10*3/uL Normal 4.00-10.60 [facility] Comment on above: Performed By: #### L [id number] ####[facility] ([facility])[address] [place] [address] Erythrocyte distribution width (RBC) [Ratio] 15.6 % High 11.5-15.0 [facility] Comment on above: Performed By: #### L [id number] ####[facility] ([facility])[address] [place] [address] ERYTHROCYTE MEAN CORPUSCULAR HEMOGLOBIN CONCENTRATION (G/DL) BY AUTOMATED 30.1 g/dL Low 32.0-35.0 [facility] Comment on above: Performed By: #### L [id number] ####[facility] ([facility])[address] [place] [address] Hematocrit (Bld) [Volume fraction] 36.5 % Low 39.0-55.0 [facility] Comment on above: Performed By: #### L [id number] ####[facility] ([facility])[address] [place] [address] Hemoglobin (Bld) [Mass/Vol] 11.0 g/dL Low 13.0-17.0 [facility] Comment on above: Performed By: #### L [id number] ####[facility] ([facility])[address] [place] [address] MCH (RBC) [Entitic mass] 24.0 pg Low 27.0-33.0 [facility] Comment on above: Performed By: #### L [id number] ####[facility] ([facility])[address] [place] [address] MCV (RBC) [Entitic vol] 79.7 fL Low 82.0-98.0 [facility] Comment on above: Performed By: #### L [id number] ####[facility] ([facility])[address] [place] [address] PLATELETS (10*3/UL) IN BLOOD AUTOMATED COUNT 238 10*3/uL Normal 150-400 [facility] Comment on above: Performed By: #### L [id number] ####[facility] ([facility])[address] [place] [address] RBC (Bld) [#/Vol] 4.58 10*6/uL Normal 4.20-5.70 [facility] Comment on above: Performed By: #### L [id number] ####[facility] ([facility])[address] [place] [address] WBC (Bld) [#/Vol] 10.35 10*3/uL Normal 4.00-10.60 [facility] Comment on above: Performed By: #### L [id number] ####[facility] ([facility])[address] [place] [address] CONSULTon 09-03-2023 CONSULT Normal [facility] GLUCOSE, BODY FLUIDon 2023 GLUCOSE (MG/DL) IN BODY FLUID 33 mg/dL Normal [facility] Comment on above: Result Comment: The reference range and other method performance specifications have not been established for this test in fluids. the test result should be integrated into the clinical context for interpretation. Performed By: #### L [id number] ####[facility] ([facility])[address] [place] [address] HPon 09-03-2023 HP Normal [facility] HP Normal [facility] LACTATE DEHYDROGENASE, BODY FLUIDon 09-03-2023 LACTATE DEHYDROGENASE (U/L) IN BODY FLUID BY LAC->PYR 1022 U/L Normal [facility] Comment on above: Result Comment: The reference range and other method performance specifications have not been established for this test in fluids. the test result should be integrated into the clinical context for interpretation. Performed By: #### L [id number] ####[facility] ([facility])[address] [place] [address] MAGNESIUMon 09-03-2023 Magnesium [Mass/Vol] 2.0 mg/dL Normal 1.9-2.7 [facility] Comment on above: Performed By: #### L [id number] ####[facility] ([facility])[address] [place] [address] Magnesium [Mass/Vol] 1.8 mg/dL Low 1.9-2.7 [facility] Comment on above: Performed By: #### L [id number] ####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 ([facility])[address] [place] [address] LAB AP CLINICAL INFORMATION Normal [facility] Comment on above: Result Comment: Post -Op DiagnosesNo Dx found. Performed By: #### L [id number] ####[facility] ([facility])[address] [place] [address] LAB AP GROSS DESCRIPTION Normal [facility] Comment on above: Result Comment: 900 mL opaque, dark red fluid. Performed By: #### L [id number] ####[facility] ([facility])[address] [place] [address] LAB AP REPORT FINAL DIAGNOSIS NARRATIVE [facility] Comment on above: Result Comment: A. P ericardial Fluid: - Negative for malignancy Performed By: #### L [id number] ####[facility] ([facility])[address] [place] [address] PATHOLOGY REVIEWon PATHOLOGY REVIEW Reviewed. Normal [facility] Comment on above: Result Comment: Elec tronically signed by Brenton Sorensen MD on 09/04/23 at 8:43 AM. Performed By: #### L [id number] ####[facility] ([facility])[address] [place] [address] PHOSPHORUSon 09-03-2023 Magnesium [Mass/Vol] 4.5 mg/dL Normal 2.5-5.0 [facility] Comment on above: Performed By: #### L [id number] ####[facility] ([facility])[address] [place] [address] Magnesium [Mass/Vol] 4.3 mg/dL Normal 2.5-5.0 [facility] Comment on above: Performed By: #### L [id number] ####[facility] ([facility])[address] [place] [address] PROTEIN, BODY FLUIDon 2023 Protein (Body fld) [Mass/Vol] 5.0 g/dL Normal [facility] Comment on above: Result Comment: The reference range and other method performance specifications have not been established for this test in fluids. the test result should be integrated into the clinical context for interpretation. Performed By: #### L [id number] ####[facility] ([facility])[address] [place] [address] PROTIME-INRon 09-03-2023 INR IN PPP BY COAGULATION ASSAY 1.61 High 0.90-1.10 [facility] Comment on above: Result Comment: [facility] RECOMMENDED INR FOR [facility] THERAPY CONDITION INRPROPHYLAXIS OF VENOUS THROMBOSIS 2-3(HIGH-RISK SURGERY)TREATMENT OF VENOUS THROMBOSIS 2-3TREATMENT OF PULMONARY EMBOLISM 2-3PREVENTION OF SYSTEMIC EMBOLISM: 2-3 ACUTE MYOCARDIAL INFARCTION TISSUE HEART VALVES VALVULAR HEART DISEASE ATRIAL FIBRILLATION RECURRENT SYSTEMIC EMBOLISMMECHANICAL HEART VALVE 2.5-3.5 FROM: ORAL ANTICOAGULANTS. MECHANISM OF ACTION, CLINICAL EFFECTIVENESS, AND OPTIMAL THERAPEUTIC RANGE. CHEST 1995;108:231S-246S. Performed By: #### L [id number] ####[facility] [place] [address] PROTHROMBIN TIME (PT) IN PPP BY COAGULATION ASSAY 19.0 Seconds High 12.3-14.8 [facility] Comment on above: Performed By: #### L [id number] ####[facility] ([facility])[address] [place] [address] INR IN PPP BY COAGULATION ASSAY 1.57 High 0.90-1.10 [facility] Comment on above: Result Comment: [facility] P RECOMMENDED INR FOR WARFARIN THERAPY CONDITION INRPROPHYLAXIS OF VENOUS THROMBOSIS 2-3(HIGH-RISK SURGERY)TREATMENT OF VENOUS THROMBOSIS 2-3TREATMENT OF PULMONARY EMBOLISM 2-3PREVENTION OF SYSTEMIC EMBOLISM: 2-3 ACUTE MYOCARDIAL INFARCTION TISSUE HEART VALVES VALVULAR HEART DISEASE ATRIAL FIBRILLATION RECURRENT SYSTEMIC EMBOLISMMECHANICAL HEART VALVE 2.5-3.5 FROM: ORAL ANTICOAGULANTS. MECHANISM OF ACTION, CLINICAL EFFECTIVENESS, AND OPTIMAL THERAPEUTIC RANGE. CHEST 1995;108:231S-246S. Performed By: #### L [id number] ####[facility] ([facility])[address] [place] [address] PROTHROMBIN TIME (PT) IN PPP BY COAGULATION ASSAY 18.6 Seconds High 12.3-14.8 [facility] Comment on above: Performed By: #### L [id number] ####[facility] ([facility])[address] [place] [address] TYPE AND SCREENon 09-03-2023 AB SCREEN Negative Normal [facility] Comment on above: Performed By: #### L [id number] ####[facility], ABO group Nom (Bld) A Normal [facility] Comment on above: Performed By: #### L [id number] ####[facility], RH TYPE IN BLOOD Negative Normal [facility] Comment on above: Performed By: #### L [id number] ####[facility], 3608-30-2023 36 [facility] 36on 08-28-2023 36 Normal [facility] Family Medicine Office/Clini c Noteon 08-28-2023 Family Medicine Office/Clinic Note HPI Staff Nehal is a 52 year old male presenting to establish care Establish Care: History: Any previous diagnosis: HTN, Heel spurs Asthma, Depression, headaches, headaches, migraines, kidney stones, JACOBY History of seeing any specialist: Dr camryn quiñones When was your last doctors visit: Last provider: Dr Aguillon Any recent labs: [facility] around 8 months ago Flu: refused Health Maintenance UTD: Colonoscopy: 2021 PSA: unsure if it has ever been checked Acute: Current issues/complaints: Pt has sleep study done and uses machine would like cpap supplies sent to [facility] [employer] in [place] pt does wear full mask- Resmed Air [...] provided. pt will have them done at [facility] on Saturday. Ordered: Misc Prescription, Full [...] will send order to medical supplies in [place] Ordered: Misc Prescription, Full Mask Resmed Air [...] qualifying data (more content not included)... Normal [facility] Comment on above: Result Comment: Elec tronically Signed By: Yolanda SOTELO, Vonnie Estrada\.br\Date and Time Signed: 08/28/23 09:59 EDT Telephoneon 08-27-2023 Telephone Normal [facility] 36on 08-14-2023 36 Normal [facility] Orders Onlyon 08-12-2023 Orders Only Normal [facility] Orders Onlyon 08-08-2023 Orders Only Normal [facility] 37on 08-07-2023 37 Continue to monitor for signs and symptoms of infection including fever, chills, shortness of breath, chest pain, abdominal pain, nausea, vomiting and diarrhea. Call our office if you notice any of these or go to the ED if needing to Normal [facility] BASIC METABOLIC PANELon 05-0 Anion gap [Moles/Vol] 11 mmol/L Normal 7-20 [facility] Comment on above: Performed By: #### L [id number] ####[facility] ([facility])[address] [place] [address] Calcium [Mass/Vol] 9.1 mg/dL Normal 8.6-10.3 [facility] Comment on above: Performed By: #### L [id number] ####[facility] ([facility])[address] [place] [address] Chloride [Moles/Vol] 101 mmol/L Normal 98-107 [facility] Comment on above: Performed By: #### L [id number] ####[facility] ([facility])[address] [place] [address] CO2 [Moles/Vol] 31 mmol/L Normal 21-31 [facility] Comment on above: Performed By: #### L AB15 ####[facility] ([facility])[address] [place] [address] Creatinine [Mass/Vol] 0.93 mg/dL Normal 0.70-1.30 [facility] Comment on above: Performed By: #### L [id number] ####[facility] ([facility])[address] [place] [address] GLOMERULAR FILTRATION RATE ML/MIN/1.73 SQ M.PREDICTED 100.0 mL/min/1.73m*2 Normal >60.0 [facility] Comment on above: Result Comment: [facility]???s estimated glomerular filtration rate (eGFR) will no [...] of individuals. Performed By: #### L AB15 ####[facility] ([facility])[address] [place] [address] Glucose [Mass/Vol] 91 mg/dL Normal 70-100 [facility] Comment on above: Performed By: #### L AB15 ####[facility] ([facility])[address] [place] [address] Potassium [Moles/Vol] 4.3 mmol/L Normal 3.5-5.1 [facility] Comment on above: Performed By: #### L [id number] ####[facility] ([facility])[address] [place] [address] Sodium [Moles/Vol] 139 mmol/L Normal 136-[address] [facility] Comment on above: Performed By: #### L [id number] ####[facility] ([facility])[address] [place] [address] Urea nitrogen [Mass/Vol] 8 mg/dL Normal - [facility] Comment on above: Performed By: #### L [id number] ####[facility] ([facility])[address] [place] [address] UREA NITROGEN/CREATININE (MASS RATIO) IN SER/PLAS 8.6 Normal [facility] Comment on above: Performed By: #### L [id number] ####[facility] ([facility])[address] [place] [address] C-REACTIVE PROTEINon 024 C REACTIVE PROTEIN (MG/L) IN SER/PLAS 21.4 mg/L High 0.0-7.0 [facility] Comment on above: Performed By: #### L [id number] ####[facility] ([facility])[address] [place] [address] Follow-Upon 08-07-2023 Follow-Up [facility] Labon 08-07-2023 Lab [facility] SEDIMENTATION RATEon 024 SEDIMENTATION RATE, ERYTHROCYTE 49 mm/hr High <=10 [facility] Comment on above: Performed By: #### L [id number] ####[facility] ([facility])[address] [place] [address] Orders Onlyon 08-05-2023 Orders Only [facility] 36on 07-25-2023 36 Phoned Coumadin clin ic regarding patients recent INR of 1.87. Spoke with RN regarding valve parameters for INR of 2.0-2.5 for first three months post op. RN noted that the patients coumadin would be adjusted to meet the therapeutic range. [facility] Documentationon 07-23-2023 Documentation [facility] 37on 07-17-2023 37 Normal [facility] Follow-Upon 07-17-2023 Follow-Up [facility] Refillon 07-17-2023 Refill [facility] 36on 07-11-2023 36 I received a call fr anders Esparzaie Bridgett stating the patient has been experiencing low BP and lightheadedness. BP: 96/54 So, she is wondering if his Lisinopril can be DC. He is currently still taking the Metoprolol as prescribed. [facility] Telephoneon 07-11-2023 Telephone [facility] 36on 07-08-2023 36 Opat received. Eliu giles orders with Pina at [facility]. Has an appt w/ Annabella 07/14. [facility] BASIC METABOLIC PANELon Anion gap [Moles/Vol] 12 mmol/L Normal 7-20 [facility] Comment on above: Performed By: #### L AB15 ####[facility] ([facility])[address] [place] [address] Calcium [Mass/Vol] 8.7 mg/dL Normal 8.6-10.3 [facility] Comment on above: Performed By: #### L AB15 ####[facility] ([facility])[address] [place] [address] Chloride [Moles/Vol] 102 mmol/L Normal 98-107 [facility] Comment on above: Performed By: #### L AB15 ####[facility] ([facility])[address] [place] [address] CO2 [Moles/Vol] 25 mmol/L Normal 21-31 [facility] Comment on above: Performed By: #### L AB15 ####[facility] ([facility])[address] [place] [address] Creatinine [Mass/Vol] 1.02 mg/dL Normal 0.70-1.30 [facility] Comment on above: Performed By: #### L AB15 ####[facility] ([facility])[address] [place] [address] GLOMERULAR FILTRATION RATE ML/MIN/1.73 SQ M.PREDICTED 89.5 mL/min/1.73m*2 Normal >60.0 [facility] Comment on above: Result Comment: [facility]???s estimated glomerular filtration rate (eGFR) will no [...] of individuals. Performed By: #### L AB15 ####[facility] ([facility])[address] [place] [address] Glucose [Mass/Vol] 101 mg/dL High 70-100 [facility] Comment on above: Performed By: #### L [id number] ####[facility] ([facility])[address] [place] [address] Potassium [Moles/Vol] 3.9 mmol/L Normal 3.5-5.1 [facility] Comment on above: Performed By: #### L [id number] ####[facility] ([facility])[address] [place] [address] Sodium [Moles/Vol] 135 mmol/L Low 136-145 [facility] Comment on above: Performed By: #### L [id number] ####[facility] ([facility])[address] [place] [address] Urea nitrogen [Mass/Vol] 14 mg/dL Normal 7-25 [facility] Comment on above: Performed By: #### L [id number] ####[facility] ([facility])[address] [place] [address] UREA NITROGEN/CREATININE (MASS RATIO) IN SER/PLAS 13.7 Normal [facility] Comment on above: Performed By: #### L [id number] ####[facility] [facility] [place] [address] CBCon 07-05-2023 Erythrocyte distribution width (RBC) [Ratio] 15.7 % High 11.5-15.0 [facility] Comment on above: Performed By: #### L [id number] ####[facility] ([facility])[address] [place] [address] ERYTHROCYTE MEAN CORPUSCULAR HEMOGLOBIN CONCENTRATION (G/DL) BY AUTOMATED 31.8 g/dL Low 32.0-35.0 [facility] Comment on above: Performed By: #### L [id number] ####[facility] ([facility])[address] [place] [address] Hematocrit (Bld) [Volume fraction] 26.1 % Low 39.0-55.0 [facility] Comment on above: Performed By: #### L [id number] ####[facility] ([facility])[address] [place] [address] Hemoglobin (Bld) [Mass/Vol] 8.3 g/dL Low 13.0-17.0 [facility] Comment on above: Performed By: #### L [id number] ####[facility] ([facility])[address] [place] [address] MCH (RBC) [Entitic mass] 28.2 pg Normal 27.0-33.0 [facility] Comment on above: Performed By: #### L [id number] ####[facility] ([facility])[address] [place] [address] MCV (RBC) [Entitic vol] 88.8 fL Normal 82.0-98.0 [facility] Comment on above: Performed By: #### L [id number] ####[facility] ([facility])[address] [place] [address] PLATELETS (10*3/UL) IN BLOOD AUTOMATED COUNT 216 10*3/uL Normal 150-400 [facility] Comment on above: Performed By: #### L [id number] ####[facility] ([facility])[address] [place] [address] RBC (Bld) [#/Vol] 2.94 10*6/uL Low 4.20-5.70 [facility] Comment on above: Performed By: #### L [id number] ####[facility] ([facility])[address] [place] [address] WBC (Bld) [#/Vol] 4.87 10*3/uL Normal 4.00-10.60 [facility] Comment on above: Performed By: #### L [id number] ####[facility] ([facility])[place] [address] DSon 07-05-2023 DS Normal [facility] Letter (Out)on 07-05-2023 Letter (Out) [facility] MAGNESIUMon 07-05-2023 Magnesium [Mass/Vol] 1.9 mg/dL Normal 1.9-2.7 [facility] Comment on above: Performed By: #### L [id number] ####[facility] ([facility])[place] [address] POCT GLUCOSE METER UNSOLICIT ED RESULTSon 07-05-2023 Glucose [Mass/Vol] 123 mg/dL High 70-105 [facility] Comment on above: Order Comment: Waive d Testing in the ED is performed under the ED CLIA certificate #[id number]. Result Comment: [email or web address] Performed By: #### L [id number] ####[facility] ([facility])[address] [place] [address] Glucose [Mass/Vol] 112 mg/dL High 70-105 [facility] Comment on above: Order Comment: Waive d Testing in the ED is performed under the ED CLIA certificate #[id number]. Result Comment: [email or web address] Performed By: #### L [id number] ####[facility] ([facility])[address] [place] [address] PROTIME-INRon 07-05-2023 INR IN PPP BY COAGULATION ASSAY 2.17 High 0.90-1.10 [facility] Comment on above: Result Comment: ACCC P [...] CHEST 1995;108:231S-246S. Performed By: #### L [id number] ####[facility] ([facility])[address] [place] [address] PROTHROMBIN TIME (PT) IN PPP BY COAGULATION ASSAY 24.3 Seconds High 12.3-14.8 [facility] Comment on above: Performed By: #### L [id number] ####[facility] ([facility])[address] [place] [address] 30on 07-04-2023 30 Normal [facility] 30 Normal [facility] 30 Normal [facility] ANTI-XA (LOW MOLECULAR WGT H EPARIN LVL)on 07-04-2023 LMW HEPARIN (U/ML) IN PPP BY CHROMOGENIC METHOD 1.00 IU/mL Normal 0.6-1.2 [facility] Comment on above: Order Comment: For E [...] and LMWH. Performed By: #### L [id number] ####[facility] ([facility])[address] [place] [address] BASIC METABOLIC PANELon 04-0 Anion gap [Moles/Vol] 10 mmol/L Normal 7-20 [facility] Comment on above: Performed By: #### L [id number] ####[facility] ([facility])[address] [place] [address] Calcium [Mass/Vol] 8.6 mg/dL Normal 8.6-10.3 [facility] Comment on above: Performed By: #### L [id number] ####[facility] ([facility])[address] [place] [address] Chloride [Moles/Vol] 103 mmol/L Normal 98-107 [facility] Comment on above: Performed By: #### L [id number] ####[facility] ([facility])[address] [place] [address] CO2 [Moles/Vol] 28 mmol/L Normal 21-31 [facility] Comment on above: Performed By: #### L [id number] ####[facility] ([facility])[address] [place] [address] Creatinine [Mass/Vol] 1.04 mg/dL Normal 0.70-1.30 [facility] Comment on above: Performed By: #### L [id number] ####[facility] ([facility])[address] [place] [address] GLOMERULAR FILTRATION RATE ML/MIN/1.73 SQ M.PREDICTED 87.5 mL/min/1.73m*2 Normal >60.0 [facility] Comment on above: Result Comment: [facility]???s estimated glomerular filtration rate (eGFR) will no [...] of individuals. Performed By: #### L [id number] ####[facility] ([facility])[address] [place] [address] Glucose [Mass/Vol] 91 mg/dL Normal 70-100 [facility] Comment on above: Performed By: #### L [id number] ####[facility] ([facility])[address] [place] [address] Potassium [Moles/Vol] 4.6 mmol/L Normal 3.5-5.1 [facility] Comment on above: Performed By: #### L [id number] ####[facility] ([facility])[address] [place] [address] Sodium [Moles/Vol] 136 mmol/L Normal 136-145 [facility] Comment on above: Performed By: #### L [id number] ####[facility] ([facility])[address] [place] [address] Urea nitrogen [Mass/Vol] 13 mg/dL Normal 7-25 [facility] Comment on above: Performed By: #### L [id number] ####[facility] ([facility])[address] [place] [address] UREA NITROGEN/CREATININE (MASS RATIO) IN SER/PLAS 12.5 Normal [facility] Comment on above: Performed By: #### L [id number] ####[facility] ([facility])[address] [place] [address] CBCon 07-04-2023 Erythrocyte distribution width (RBC) [Ratio] 15.8 % High 11.5-15.0 [facility] Comment on above: Performed By: #### L [id number] ####[facility] ([facility])[address] [place] [address] ERYTHROCYTE MEAN CORPUSCULAR HEMOGLOBIN CONCENTRATION (G/DL) BY AUTOMATED 32.0 g/dL Normal 32.0-35.0 [facility] Comment on above: Performed By: #### L [id number] ####[facility] ([facility])[address] [place] [address] Hematocrit (Bld) [Volume fraction] 24.7 % Low 39.0-55.0 [facility] Comment on above: Performed By: #### L [id number] ####[facility] ([facility])[address] [place] [address] Hemoglobin (Bld) [Mass/Vol] 7.9 g/dL Low 13.0-17.0 [facility] Comment on above: Performed By: #### L [id number] ####[facility] ([facility])[address] [place] [address] MCH (RBC) [Entitic mass] 28.9 pg Normal 27.0-33.0 [facility] Comment on above: Performed By: #### L [id number] ####[facility] ([facility])[address] [place] [address] MCV (RBC) [Entitic vol] 90.5 fL Normal 82.0-98.0 [facility] Comment on above: Performed By: #### L [id number] ####[facility] ([facility])[address] [place] [address] PLATELETS (10*3/UL) IN BLOOD AUTOMATED COUNT 243 10*3/uL Normal 150-400 [facility] Comment on above: Performed By: #### L [id number] ####[facility] ([facility])[address] [place] [address] RBC (Bld) [#/Vol] 2.73 10*6/uL Low 4.20-5.70 [facility] Comment on above: Performed By: #### L [id number] ####[facility] ([facility])[address] [place] [address] WBC (Bld) [#/Vol] 5.14 10*3/uL Normal 4.00-10.60 [facility] Comment on above: Performed By: #### L [id number] ####[facility] ([facility])[address] [place] [address] MAGNESIUMon 07-04-2023 Magnesium [Mass/Vol] 1.9 mg/dL Normal 1.9-2.7 [facility] Comment on above: Performed By: #### L [id number] ####[facility] ([facility])[address] [place] [address] POCT GLUCOSE METER UNSOLICIT ED RESULTSon 07-04-2023 Glucose [Mass/Vol] 112 mg/dL High 70-105 [facility] Comment on above: Order Comment: Waive d Testing in the ED is performed under the ED CLIA certificate #[id number]. Result Comment: [email or web address] Performed By: #### L [id number] ####[facility] ([facility])[address] [place] [address] Glucose [Mass/Vol] 130 mg/dL High 70-105 [facility] Comment on above: Order Comment: Waive d Testing in the ED is performed under the ED CLIA certificate #[id number]. Result Comment: [email or web address] Performed By: #### L [id number] ####[facility] ([facility])[address] [place] [address] Glucose [Mass/Vol] 127 mg/dL High 70-105 [facility] Comment on above: Order Comment: Waive d Testing in the ED is performed under the ED CLIA certificate #[id number]. Result Comment: [email or web address] Performed By: #### L [id number] ####[facility] ([facility])[address] [place] [address] Glucose [Mass/Vol] 113 mg/dL High 70-105 [facility] Comment on above: Order Comment: Waive d Testing in the ED is performed under the ED CLIA certificate #[id number]. Result Comment: [email or web address] Performed By: #### L [id number] ####[facility] ([employer])[address] [place] [address] PROTIME-INRon 07-04-2023 INR IN PPP BY COAGULATION ASSAY 1.77 High 0.90-1.10 [facility] Comment on above: Result Comment: ACCC P [...] CHEST 1995;108:231S-246S. Performed By: #### L [id number] ####[facility] ([employer])[address] [place] [address] PROTHROMBIN TIME (PT) IN PPP BY COAGULATION ASSAY 20.7 Seconds High 12.3-14.8 [facility] Comment on above: Performed By: #### L [id number] ####[facility] ([facility])[address] [place] [address] 30on 07-03-2023 30 Normal [facility] ANTI-XA (HEPARIN LEVEL)on HEPARIN UNFRACTIONATED (U/ML) IN PPP BY CHROMOGENIC METHOD 0.12 IU/mL Invalid Interpretation Code 0.3-0.7 [facility] Comment on above: Result Comment: [place] roxaban and Apixaban will interfere with the anti Xa assay used to monitor UFH and LMWH. Performed By: #### L [id number] ####[facility] ([facility])[address] [place] [address] BASIC METABOLIC PANELon 04-0 Anion gap [Moles/Vol] 11 mmol/L Normal 7-20 [facility] Comment on above: Performed By: #### L [id number] ####[facility] ([facility])[address] [place] [address] Calcium [Mass/Vol] 8.9 mg/dL Normal 8.6-10.3 [facility] Comment on above: Performed By: #### L [id number] ####[facility] ([facility])[address] [place] [address] Chloride [Moles/Vol] 101 mmol/L Normal 98-107 [facility] Comment on above: Performed By: #### L [id number] ####[facility] ([facility])[address] [place] [address] CO2 [Moles/Vol] 28 mmol/L Normal 21-31 [facility] Comment on above: Performed By: #### L [id number] ####[facility] ([facility])[address] [place] [address] Creatinine [Mass/Vol] 1.03 mg/dL Normal 0.70-1.30 [facility] Comment on above: Performed By: #### L [id number] ####[facility] ([facility])[address] [place] [address] GLOMERULAR FILTRATION RATE ML/MIN/1.73 SQ M.PREDICTED 88.5 mL/min/1.73m*2 Normal >60.0 [facility] Comment on above: Result Comment: The [facility]???s estimated glomerular filtration rate (eGFR) will no [...] of individuals. Performed By: #### L [id number] ####[facility] ([facility])[address] [place] [address] Glucose [Mass/Vol] 87 mg/dL Normal 70-100 [facility] Comment on above: Performed By: #### L [id number] ####[facility] ([facility])[address] [place] [address] Potassium [Moles/Vol] 4.4 mmol/L Normal 3.5-5.1 [facility] Comment on above: Performed By: #### L [id number] ####[facility] ([facility])[address] [place] [address] Sodium [Moles/Vol] 136 mmol/L Normal 136-145 [facility] Comment on above: Performed By: #### L [id number] ####[facility] ([facility])[address] [place] [address] Urea nitrogen [Mass/Vol] 13 mg/dL Normal 7-25 [facility] Comment on above: Performed By: #### L [id number] ####[facility] ([facility])[address] [place] [address] UREA NITROGEN/CREATININE (MASS RATIO) IN SER/PLAS 12.6 Normal [facility] Comment on above: Performed By: #### L [id number] ####[facility] ([facility])[address] [place] [address] CBCon 07-03-2023 Erythrocyte distribution width (RBC) [Ratio] 15.5 % High 11.5-15.0 [facility] Comment on above: Performed By: #### L [id number] ####[facility] ([facility])[address] [place] [address] ERYTHROCYTE MEAN CORPUSCULAR HEMOGLOBIN CONCENTRATION (G/DL) BY AUTOMATED 31.9 g/dL Low 32.0-35.0 [facility] Comment on above: Performed By: #### L [id number] ####[facility] ([facility])[address] [place] [address] Hematocrit (Bld) [Volume fraction] 25.4 % Low 39.0-55.0 [facility] Comment on above: Performed By: #### L [id number] ####[facility] ([facility])[address] [place] [address] Hemoglobin (Bld) [Mass/Vol] 8.1 g/dL Low 13.0-17.0 [facility] Comment on above: Performed By: #### L [id number] ####[facility] ([facility])[address] [place] [address] MCH (RBC) [Entitic mass] 28.8 pg Normal 27.0-33.0 [facility] Comment on above: Performed By: #### L [id number] ####[facility] ([facility])[address] [place] [address] MCV (RBC) [Entitic vol] 90.4 fL Normal 82.0-98.0 [facility] Comment on above: Performed By: #### L [id number] ####[facility] ([facility])[address] [place] [address] PLATELETS (10*3/UL) IN BLOOD AUTOMATED COUNT 247 10*3/uL Normal 150-400 [facility] Comment on above: Performed By: #### L [id number] ####[facility] ([facility])[address] [place] [address] RBC (Bld) [#/Vol] 2.81 10*6/uL Low 4.20-5.70 [facility] Comment on above: Performed By: #### L [id number] ####[facility] ([facility])[address] [place] [address] WBC (Bld) [#/Vol] 4.31 10*3/uL Normal 4.00-10.60 [facility] Comment on above: Performed By: #### L [id number] ####[facility] ([facility])[address] [place] [address] MAGNESIUMon 04--2024 Magnesium [Mass/Vol] 2.0 mg/dL Normal 1.9-2.7 [facility] Comment on above: Performed By: #### L [id number] ####[facility] ([facility])[address] [place] [address] POCT GLUCOSE METER UNSOLICIT ED RESULTSon 07-03-2023 Glucose [Mass/Vol] 127 mg/dL High 70-105 [facility] Comment on above: Order Comment: Waive d Testing in the ED is performed under the ED CLIA certificate #[id number]. Result Comment: [email or web address] Performed By: #### L [id number] ####[facility] ([facility])[address] [facility] [address] Glucose [Mass/Vol] 129 mg/dL High 70-105 [facility] Comment on above: Order Comment: Waive d Testing in the ED is performed under the ED CLIA certificate #[id number]. Result Comment: [email or web address] Performed By: #### L [id number] ####[facility] ([facility])[address] [place] [address] Glucose [Mass/Vol] 135 mg/dL High 70-105 [facility] Comment on above: Order Comment: Waive d Testing in the ED is performed under the ED CLIA certificate #[id number]. Result Comment: [email or web address] Performed By: #### L [id number] ####[facility] ([facility])[address] [place] [address] Glucose [Mass/Vol] 99 mg/dL Normal 70-105 [facility] Comment on above: Order Comment: Waive d Testing in the ED is performed under the ED CLIA certificate #[id number]. Result Comment: [email or web address] Performed By: #### L [id number] ####[facility] ([facility])[address] [facility] [address] PROTIME-INRon 07-03-2023 INR IN PPP BY COAGULATION ASSAY 1.62 High 0.90-1.10 [facility] Comment on above: Result Comment: ACCC P [...] CHEST 1995;108:231S-246S. Performed By: #### L [id number] ####[facility] ([facility])[address] [place] [address] PROTHROMBIN TIME (PT) IN PPP BY COAGULATION ASSAY 19.3 Seconds High 12.3-14.8 [facility] Comment on above: Performed By: #### L [id number] ####[facility] ([facility])[address] [place] [address] 30on 07-02-2023 30 The patient is Moder ately Stable - Low risk of patient condition declining or worsening The patient's goals for the shift include comfort, rest The clinical goals for the shift include Stable vitals, comfort Normal [facility] 30 Normal [facility] 30 Normal [facility] ANTI-XA (HEPARIN LEVEL)on HEPARIN UNFRACTIONATED (U/ML) IN PPP BY CHROMOGENIC METHOD 0.47 IU/mL Normal 0.3-0.7 [facility] Comment on above: Result Comment: [place] roxaban and Apixaban will interfere with the anti Xa assay used to monitor UFH and LMWH. Performed By: #### L [id number] ####[facility] ([facility])[address] [place] [address] BASIC METABOLIC PANELon 04-0 Anion gap [Moles/Vol] 12 mmol/L Normal 7-20 [facility] Comment on above: Performed By: #### L [id number] ####[facility] ([facility])[address] [place] [address] Calcium [Mass/Vol] 8.9 mg/dL Normal 8.6-10.3 [facility] Comment on above: Performed By: #### L [id number] ####[facility] ([facility])[address] [place] [address] Chloride [Moles/Vol] 97 mmol/L Low 98-107 [facility] Comment on above: Performed By: #### L [id number] ####[facility] ([facility])[address] [place] [address] CO2 [Moles/Vol] 28 mmol/L Normal 21-31 [facility] Comment on above: Performed By: #### L [id number] ####[facility] ([facility])[address] [place] [address] Creatinine [Mass/Vol] 1.00 mg/dL Normal 0.70-1.30 [facility] Comment on above: Performed By: #### L [id number] ####[facility] ([facility])[address] [place] [address] GLOMERULAR FILTRATION RATE ML/MIN/1.73 SQ M.PREDICTED 91.7 mL/min/1.73m*2 Normal >60.0 [facility] Comment on above: Result Comment: [facility]???s estimated glomerular filtration rate (eGFR) will no [...] of individuals. Performed By: #### L [id number] ####[facility] ([facility])[address] [place] [address] Glucose [Mass/Vol] 100 mg/dL Normal 70-100 [facility] Comment on above: Performed By: #### L [id number] ####[facility] ([facility])[address] [place] [address] Potassium [Moles/Vol] 3.9 mmol/L Normal 3.5-5.1 [facility] Comment on above: Performed By: #### L [id number] ####[facility] ([facility])[address] [place] [address] Sodium [Moles/Vol] 133 mmol/L Low 136-145 [facility] Comment on above: Performed By: #### L [id number] ####[facility] ([facility])[address] [place] [address] Urea nitrogen [Mass/Vol] 10 mg/dL Normal 7-25 [facility] Comment on above: Performed By: #### L [id number] ####[facility] ([facility])[address] [place] [address] UREA NITROGEN/CREATININE (MASS RATIO) IN SER/PLAS 10.0 Normal [facility] Comment on above: Performed By: #### L [id number] ####[facility] ([facility])[address] [place] [address] CBC WITH AUTO DIFFERENTIALon 07-02-2023 Basophils (Bld) [#/Vol] 0.05 10*3/uL Normal 0.00-0.20 [facility] Comment on above: Performed By: #### L [id number] ####[facility] ([facility])[address] [place] [address] Basophils/100 WBC (Bld) 0.9 % Normal 0.0-1.0 [facility] Comment on above: Performed By: #### L [id number] ####[facility] ([facility])[address] [place] [address] Eosinophils (Bld) [#/Vol] 0.27 10*3/uL Normal 0.00-0.50 [facility] Comment on above: Performed By: #### L [id number] ####[facility] ([facility])[address] [place] [address] Eosinophils/100 WBC (Bld) 4.6 % Normal 0.0-6.0 [facility] Comment on above: Performed By: #### L [id number] ####[facility] ([facility] [place] [address] Erythrocyte distribution width (RBC) [Ratio] 15.4 % High 11.5-15.0 [facility] Comment on above: Performed By: #### L [id number] ####[facility] ([facility])[address] [place] [address] ERYTHROCYTE MEAN CORPUSCULAR HEMOGLOBIN CONCENTRATION (G/DL) BY AUTOMATED 32.7 g/dL Normal 32.0-35.0 [facility] Comment on above: Performed By: #### L [id number] ####[facility] ([facility])[address] [place] [address] Hematocrit (Bld) [Volume fraction] 27.2 % Low 39.0-55.0 [facility] Comment on above: Performed By: #### L [id number] ####[facility] ([facility] [place] [address] Hemoglobin (Bld) [Mass/Vol] 8.9 g/dL Low 13.0-17.0 [facility] Comment on above: Performed By: #### L [id number] ####[facility] ([facility])[address] [place] [address] Immature granulocytes (Bld) [#/Vol] 0.04 10*3/uL Normal 0.00-0.20 [facility] Comment on above: Performed By: #### L [id number] ####[facility] ([facility])[address] [place] [address] Immature granulocytes/100 WBC (Bld) 0.7 % Normal 0.0-1.0 [facility] Comment on above: Performed By: #### L [id number] ####[facility] (BEAKER)[address] [place] [address] Lymphocytes (Bld) [#/Vol] 1.10 10*3/uL Low 1.20-4.00 [facility] Comment on above: Performed By: #### L [id number] ####[facility] (BEAKER)[address] [place] [address] Lymphocytes/100 WBC (Bld) 18.8 % Low 20.0-45.0 [facility] Comment on above: Performed By: #### L [id number] ####[facility] (BEAKER)[address] [place] [address] MCH (RBC) [Entitic mass] 29.0 pg Normal 27.0-33.0 [facility] Comment on above: Performed By: #### L [id number] ####[facility] (BEAKER)[address] [place] [address] MCV (RBC) [Entitic vol] 88.6 fL Normal 82.0-98.0 [facility] Comment on above: Performed By: #### L [id number] ####[facility] (BEAKER)[address] [place] [address] Monocytes (Bld) [#/Vol] 0.73 10*3/uL Normal 0.10-1.00 [facility] Comment on above: Performed By: #### L [id number] ####[facility] (BEAKER)[address] [place] [address] Monocytes/100 WBC (Bld) 12.5 % High 5.0-12.0 [facility] Comment on above: Performed By: #### L [id number] ####[facility] (BEAKER)[address] [place] [address] Neutrophils (Bld) [#/Vol] 3.67 10*3/uL Normal 1.60-7.60 [facility] Comment on above: Performed By: #### L [id number] ####[facility] ([facility])[address] [place] [address] Neutrophils/100 WBC (Bld) 62.5 % Normal 40.0-72.0 [facility] Comment on above: Performed By: #### L [id number] ####[facility] ([facility])[address] [place] [address] NRBC (PER 100 WBCS) BY AUTOMATED COUNT 0.0 % Normal 0 [facility] Comment on above: Performed By: #### L [id number] ####[facility] ([facility])[address] [place] [address] PLATELETS (10*3/UL) IN BLOOD AUTOMATED COUNT 292 10*3/uL Normal 150-400 [facility] Comment on above: Performed By: #### L [id number] ####[facility] ([facility])[address] [place] [address] RBC (Bld) [#/Vol] 3.07 10*6/uL Low 4.20-5.70 [facility] Comment on above: Performed By: #### L [id number] ####[facility] ([facility])[address] [place] [address] WBC (Bld) [#/Vol] 5.86 10*3/uL Normal 4.00-10.60 [facility] Comment on above: Performed By: #### L [id number] ####[facility] ([facility])[address] [place] [address] MAGNESIUMon 07-02-2023 Magnesium [Mass/Vol] 2.0 mg/dL Normal 1.9-2.7 [facility] Comment on above: Performed By: #### L [id number] ####[facility] ([facility])[address] [place] [address] NURSNOTEon 07-02-2023 NURSNOTE Heparin level 0.47, no need for rate change at this time. Safety Maintained. Normal [facility] POCT GLUCOSE METER UNSOLICIT ED RESULTSon 07-02-2023 Glucose [Mass/Vol] 118 mg/dL High 70-105 [facility] Comment on above: Order Comment: Waive d Testing in the ED is performed under the ED CLIA certificate #[id number]. Result Comment: [email or web address] Performed By: #### L [id number] ####[facility] ([employer])[address] [place] [address] Glucose [Mass/Vol] 154 mg/dL High 70-105 [facility] Comment on above: Order Comment: Waive d Testing in the ED is performed under the ED CLIA certificate #[id number]. Result Comment: [email or web address] Performed By: #### L [id number] ####[facility] ([employer])[address] [place] [address] Glucose [Mass/Vol] 138 mg/dL High 70-105 [facility] Comment on above: Order Comment: Waive d Testing in the ED is performed under the ED CLIA certificate #[id number]. Result Comment: [email or web address] Performed By: #### L [id number] ####[facility] ([employer])[address] [place] [address] Glucose [Mass/Vol] 106 mg/dL High 70-105 [facility] Comment on above: Order Comment: Waive d Testing in the ED is performed under the ED CLIA certificate #[id number]. Result Comment: [email or web address] Performed By: #### L [id number] ####[facility] ([employer])[address] [place] [address] PROTIME-INRon 07-02-2023 INR IN PPP BY COAGULATION ASSAY 1.45 High 0.90-1.10 [facility] Comment on above: Result Comment: ACCC P [...] CHEST 1995;108:231S-246S. Performed By: #### L [id number] ####[facility] ([employer])[address] [place] [address] PROTHROMBIN TIME (PT) IN PPP BY COAGULATION ASSAY 17.7 Seconds High 12.3-14.8 [facility] Comment on above: Performed By: #### L [id number] ####[facility] ([employer])[address] [place] [address] 30on 07-01-2023 30 Normal [facility] 30 Normal [facility] 30 [facility] 30 The patient is Moder ately Stable - Low risk of patient condition declining or worsening The patient's goals for the shift include comfort The clinical goals for the shift include safety Normal [facility] ANTI-XA (HEPARIN LEVEL)on HEPARIN UNFRACTIONATED (U/ML) IN PPP BY CHROMOGENIC METHOD 0.38 IU/mL Normal 0.3-0.7 [facility] Comment on above: Result Comment: [place] roxaban and Apixaban will interfere with the anti Xa assay used to monitor UFH and LMWH. Performed By: #### L [id number] ####[facility] [place] [address] BASIC METABOLIC PANELon Anion gap [Moles/Vol] 12 mmol/L Normal 7-20 [facility] Comment on above: Performed By: #### L [id number] ####[facility] ([facility])[address] [place] [address] Calcium [Mass/Vol] 8.6 mg/dL Normal 8.6-10.3 [facility] Comment on above: Performed By: #### L [id number] ####[facility] ([facility])[address] [place] [address] Chloride [Moles/Vol] 95 mmol/L Low 98-107 [facility] Comment on above: Performed By: #### L [id number] ####[facility] ([facility])[address] [place] [address] CO2 [Moles/Vol] 30 mmol/L Normal 21-31 [facility] Comment on above: Performed By: #### L [id number] ####[facility] ([facility])[address] [place] [address] Creatinine [Mass/Vol] 0.89 mg/dL Normal 0.70-1.30 [facility] Comment on above: Performed By: #### L [id number] ####[facility] ([facility])[address] [place] [address] GLOMERULAR FILTRATION RATE ML/MIN/1.73 SQ M.PREDICTED 104.4 mL/min/1.73m*2 Normal >60.0 [facility] Comment on above: Result Comment: The [facility]???s estimated glomerular filtration rate (eGFR) will no [...] of individuals. Performed By: #### L [id number] ####[facility] (BEAKER)[address] [place] [address] Glucose [Mass/Vol] 95 mg/dL Normal 70-100 [facility] Comment on above: Performed By: #### L [id number] ####[facility] [place] [address] Potassium [Moles/Vol] 3.6 mmol/L Normal 3.5-5.1 [facility] Comment on above: Performed By: #### L [id number] ####[facility] ([facility] [place] [address] Sodium [Moles/Vol] 133 mmol/L Low 136-145 [facility] Comment on above: Performed By: #### L [id number] ####[facility] ([facility])[address] [place] [address] Urea nitrogen [Mass/Vol] 9 mg/dL Normal 7-25 [facility] Comment on above: Performed By: #### L [id number] ####[facility] ([facility])[address] [place] [address] UREA NITROGEN/CREATININE (MASS RATIO) IN SER/PLAS 10.1 Normal [facility] Comment on above: Performed By: #### L [id number] ####[facility] ([facility])[address] [place] [address] CBCon 07-01-2023 Erythrocyte distribution width (RBC) [Ratio] 15.3 % High 11.5-15.0 [facility] Comment on above: Performed By: #### L [id number] ####[facility] ([facility])[address] [place] [address] ERYTHROCYTE MEAN CORPUSCULAR HEMOGLOBIN CONCENTRATION (G/DL) BY AUTOMATED 33.1 g/dL Normal 32.0-35.0 [facility] Comment on above: Performed By: #### L [id number] ####[facility] ([facility] [place] [address] Hematocrit (Bld) [Volume fraction] 24.2 % Low 39.0-55.0 [facility] Comment on above: Performed By: #### L [id number] ####[facility] ([facility])[address] [place] [address] Hemoglobin (Bld) [Mass/Vol] 8.0 g/dL Low 13.0-17.0 [facility] Comment on above: Performed By: #### L [id number] ####[facility] ([facility])[address] [place] [address] MCH (RBC) [Entitic mass] 29.1 pg Normal 27.0-33.0 [facility] Comment on above: Performed By: #### L [id number] ####[facility] ([facility])[address] [place] [address] MCV (RBC) [Entitic vol] 88.0 fL Normal 82.0-98.0 [facility] Comment on above: Performed By: #### L [id number] ####[facility] ([facility])[place] [address] PLATELETS (10*3/UL) IN BLOOD AUTOMATED COUNT 218 10*3/uL Normal 150-400 [facility] Comment on above: Performed By: #### L [id number] ####[facility] ([facility])[address] [place] [address] RBC (Bld) [#/Vol] 2.75 10*6/uL Low 4.20-5.70 [facility] Comment on above: Performed By: #### L [id number] ####[facility] ([facility])[address] [place] [address] WBC (Bld) [#/Vol] 4.96 10*3/uL Normal 4.00-10.60 [facility] Comment on above: Performed By: #### L [id number] ####[facility] ([facility])[address] [place] [address] CONSULTon 07-01-2023 CONSULT Normal [facility] MAGNESIUMon 07-01-2023 Magnesium [Mass/Vol] 2.0 mg/dL Normal 1.9-2.7 [facility] Comment on above: Performed By: #### L [id number] ####[facility] ([facility])[address] [place] [address] POCT GLUCOSE METER UNSOLICIT ED RESULTSon 07-01-2023 Glucose [Mass/Vol] 128 mg/dL High 70-105 [facility] Comment on above: Order Comment: Waive d Testing in the ED is performed under the ED CLIA certificate #[id number]. Result Comment: [email or web address] Performed By: #### L [id number] ####[facility] ([facility])[address] [place] [address] Glucose [Mass/Vol] 119 mg/dL High 70-105 [facility] Comment on above: Order Comment: Waive d Testing in the ED is performed under the ED CLIA certificate #[id number]. Result Comment: [email or web address] Performed By: #### L [id number] ####[facility] ([facility])[address] [place] [address] Glucose [Mass/Vol] 151 mg/dL High 70-105 [facility] Comment on above: Order Comment: Waive d Testing in the ED is performed under the ED CLIA certificate #[id number]. Result Comment: [email or web address] Performed By: #### L [id number] ####[facility] ([facility])[address] [place] [address] Glucose [Mass/Vol] 119 mg/dL High 70-105 [facility] Comment on above: Order Comment: Waive d Testing in the ED is performed under the ED CLIA certificate #[id number]. Result Comment: [email or web address] Performed By: #### L [id number] ####[facility] ([facility])[address] [place] [address] Glucose [Mass/Vol] 121 mg/dL High 70-105 [facility] Comment on above: Order Comment: Waive d Testing in the ED is performed under the ED CLIA certificate #[id number]. Result Comment: [email or web address] Performed By: #### L [id number] ####[facility] ([employer])[address] [place] [address] PROTIME-INRon 07-01-2023 INR IN PPP BY COAGULATION ASSAY 1.37 High 0.90-1.10 [facility] Comment on above: Result Comment: ACCC P [...] CHEST 1995;108:231S-246S. Performed By: #### L [id number] ####[facility] ([employer])[address] [place] [address] PROTHROMBIN TIME (PT) IN PPP BY COAGULATION ASSAY 16.9 Seconds High 12.3-14.8 [facility] Comment on above: Performed By: #### L [id number] ####[facility] ([employer])[address] [place] [address] 30on 06-30-2023 30 Normal [facility] ANTI-XA (HEPARIN LEVEL)on HEPARIN UNFRACTIONATED (U/ML) IN PPP BY CHROMOGENIC METHOD 0.39 IU/mL Normal 0.3-0.7 [facility] Comment on above: Result Comment: [place] roxaban and Apixaban will interfere with the anti Xa assay used to monitor UFH and LMWH. Performed By: #### L [id number] ####[facility] ([facility])[address] [place] [address] BASIC METABOLIC PANELon 03-3 Anion gap [Moles/Vol] 11 mmol/L Normal 7-20 [facility] Comment on above: Performed By: #### L [id number] ####[facility] ([facility])[address] [place] [address] Calcium [Mass/Vol] 8.9 mg/dL Normal 8.6-10.3 [facility] Comment on above: Performed By: #### L [id number] ####[facility] ([facility])[address] [place] [address] Chloride [Moles/Vol] 96 mmol/L Low 98-107 [facility] Comment on above: Performed By: #### L [id number] ####[facility] ([facility])[address] [place] [address] CO2 [Moles/Vol] 30 mmol/L Normal 21-31 [facility] Comment on above: Performed By: #### L [id number] ####[facility] ([facility])[address] [place] [address] Creatinine [Mass/Vol] 0.78 mg/dL Normal 0.70-1.30 [facility] Comment on above: Performed By: #### L [id number] ####[facility] ([facility])[address] [place] [address] GLOMERULAR FILTRATION RATE ML/MIN/1.73 SQ M.PREDICTED 108.6 mL/min/1.73m*2 Normal >60.0 [facility] Comment on above: Result Comment: The [facility]???s estimated glomerular filtration rate (eGFR) will no [...] of individuals. Performed By: #### L [id number] ####[facility] ([facility])[address] [place] [address] Glucose [Mass/Vol] 108 mg/dL High 70-100 [facility] Comment on above: Performed By: #### L [id number] ####[facility] ([facility])[address] [place] [address] Potassium [Moles/Vol] 3.9 mmol/L Normal 3.5-5.1 [facility] Comment on above: Performed By: #### L [id number] ####[facility] ([facility])[address] [place] [address] Sodium [Moles/Vol] 133 mmol/L Low 136-145 [facility] Comment on above: Performed By: #### L [id number] ####[facility] ([facility])[address] [place] [address] Urea nitrogen [Mass/Vol] 9 mg/dL Normal 7-25 [facility] Comment on above: Performed By: #### L [id number] ####[facility] ([facility])[address] [place] [address] UREA NITROGEN/CREATININE (MASS RATIO) IN SER/PLAS 11.5 Normal [facility] Comment on above: Performed By: #### L [id number] ####[facility] ([facility])[address] [place] [address] CBCon 06-30-2023 Erythrocyte distribution width (RBC) [Ratio] 15.4 % High 11.5-15.0 [facility] Comment on above: Performed By: #### L [id number] ####[facility] ([facility])[address] [place] [address] ERYTHROCYTE MEAN CORPUSCULAR HEMOGLOBIN CONCENTRATION (G/DL) BY AUTOMATED 33.6 g/dL Normal 32.0-35.0 [facility] Comment on above: Performed By: #### L [id number] ####[facility] ([facility])[address] [place] [address] Hematocrit (Bld) [Volume fraction] 24.4 % Low 39.0-55.0 [facility] Comment on above: Performed By: #### L [id number] ####[facility] ([facility])[address] [place] [address] Hemoglobin (Bld) [Mass/Vol] 8.2 g/dL Low 13.0-17.0 [facility] Comment on above: Performed By: #### L [id number] ####[facility] ([facility])[address] [place] [address] MCH (RBC) [Entitic mass] 28.9 pg Normal 27.0-33.0 [facility] Comment on above: Performed By: #### L [id number] ####[facility] ([facility])[address] [place] [address] MCV (RBC) [Entitic vol] 85.9 fL Normal 82.0-98.0 [facility] Comment on above: Performed By: #### L [id number] ####[facility] ([facility])[address] [place] [address] PLATELETS (10*3/UL) IN BLOOD AUTOMATED COUNT 203 10*3/uL Normal 150-400 [facility] Comment on above: Performed By: #### L [id number] ####[facility] ([facility])[address] [place] [address] RBC (Bld) [#/Vol] 2.84 10*6/uL Low 4.20-5.70 [facility] Comment on above: Performed By: #### L [id number] ####[facility] ([facility])[address] [place] [address] WBC (Bld) [#/Vol] 6.03 10*3/uL Normal 4.00-10.60 [facility] Comment on above: Performed By: #### L [id number] ####[facility] ([facility])[address] [place] [address] CKon 06-30-2023 CREATINE KINASE (U/L) IN SER/PLAS 144.0 U/L Normal 30.0-223.0 [facility] Comment on above: Performed By: #### L [id number] ####[facility] ([facility])[address] [place] [address] MAGNESIUMon 06-30-2023 Magnesium [Mass/Vol] 2.1 mg/dL Normal 1.9-2.7 [facility] Comment on above: Performed By: #### L [id number] ####[facility] ([facility])[address] [place] [address] Magnesium [Mass/Vol] 2.2 mg/dL Normal 1.9-2.7 [facility] Comment on above: Performed By: #### L [id number] ####[facility] ([facility])[address] [place] [address] POCT GLUCOSE METER UNSOLICIT ED RESULTSon 06-30-2023 Glucose [Mass/Vol] 243 mg/dL High 70-105 [facility] Comment on above: Order Comment: Waive d Testing in the ED is performed under the ED CLIA certificate #[id number]. Result Comment: [email or web address] Performed By: #### L [id number] ####[facility] ([facility])[address] [place] [address] Glucose [Mass/Vol] 112 mg/dL High 70-105 [facility] Comment on above: Order Comment: Waive d Testing in the ED is performed under the ED CLIA certificate #[id number]. Result Comment: [email or web address] Performed By: #### L [id number] ####[facility] ([facility])[address] [place] [address] Glucose [Mass/Vol] 124 mg/dL High 70-105 [facility] Comment on above: Order Comment: Waive d Testing in the ED is performed under the ED CLIA certificate #[id number]. Result Comment: [email or web address] Performed By: #### L [id number] ####[facility] ([facility])[address] [facility] [address] Glucose [Mass/Vol] 158 mg/dL High 70-105 [facility] Comment on above: Order Comment: Waive d Testing in the ED is performed under the ED CLIA certificate #[id number]. Result Comment: [email or web address] Performed By: #### L [id number] ####[facility] ([employer])[address] [facility] [address] POTASSIUMon 06-30-2023 Potassium [Moles/Vol] 4.0 mmol/L Normal 3.5-5.1 [facility] Comment on above: Performed By: #### L [id number] ####[facility] ([facility])[address] [place] [address] PROTIME-INRon 06-30-2023 INR IN PPP BY COAGULATION ASSAY 1.21 High 0.90-1.10 [facility] Comment on above: Result Comment: ACCC P [...] CHEST 1995;108:231S-246S. Performed By: #### L [id number] ####[facility] ([facility] [place] [address] PROTHROMBIN TIME (PT) IN PPP BY COAGULATION ASSAY 15.4 Seconds High 12.3-14.8 [facility] Comment on above: Performed By: #### L [id number] ####[facility] ([facility])[address] [place] [address] 30on 06-29-2023 30 Normal [facility] 30 Normal [facility] ANTI-XA (HEPARIN LEVEL)on HEPARIN UNFRACTIONATED (U/ML) IN PPP BY CHROMOGENIC METHOD 0.30 IU/mL Normal 0.3-0.7 [facility] Comment on above: Result Comment: [place] roxaban and Apixaban will interfere with the anti Xa assay used to monitor UFH and LMWH. Performed By: #### L [id number] ####[facility] ([facility])[address] [place] [address] HEPARIN UNFRACTIONATED (U/ML) IN PPP BY CHROMOGENIC METHOD 0.31 IU/mL Normal 0.3-0.7 [facility] Comment on above: Result Comment: [place] roxaban and Apixaban will interfere with the anti Xa assay used to monitor UFH and LMWH. Performed By: #### L [id number] ####[facility] ([facility])[address] [place] [address] BASIC METABOLIC PANELon 06-01 Anion gap [Moles/Vol] 10 mmol/L Normal 7-20 [facility] Comment on above: Performed By: #### L [id number] ####[facility] ([facility])[address] [place] [address] Calcium [Mass/Vol] 8.3 mg/dL Low 8.6-10.3 [facility] Comment on above: Performed By: #### L [id number] ####[facility] ([facility])[address] [place] [address] Chloride [Moles/Vol] 96 mmol/L Low 98-107 [facility] Comment on above: Performed By: #### L [id number] ####[facility] ([facility])[address] [place] [address] CO2 [Moles/Vol] 29 mmol/L Normal 21-31 [facility] Comment on above: Performed By: #### L [id number] ####[facility] ([facility])[address] [place] [address] Creatinine [Mass/Vol] 0.74 mg/dL Normal 0.70-1.30 [facility] Comment on above: Performed By: #### L [id number] ####[facility] ([facility])[address] [place] [address] GLOMERULAR FILTRATION RATE ML/MIN/1.73 SQ M.PREDICTED 110.4 mL/min/1.73m*2 Normal >60.0 [facility] Comment on above: Result Comment: [facility]???s estimated glomerular filtration rate (eGFR) will no [...] of individuals. Performed By: #### L [id number] ####[facility] ([facility])[address] [place] [address] Glucose [Mass/Vol] 107 mg/dL High 70-100 [facility] Comment on above: Performed By: #### L [id number] ####[facility] ([facility])[address] [place] [address] Potassium [Moles/Vol] 4.3 mmol/L Normal 3.5-5.1 [facility] Comment on above: Performed By: #### L [id number] ####[facility] ([facility])[address] [place] [address] Sodium [Moles/Vol] 131 mmol/L Low 136-145 [facility] Comment on above: Performed By: #### L [id number] ####[facility] ([facility])[address] [place] [address] Urea nitrogen [Mass/Vol] 9 mg/dL Normal 7-25 [facility] Comment on above: Performed By: #### L [id number] ####[facility] ([facility])[address] [place] [address] UREA NITROGEN/CREATININE (MASS RATIO) IN SER/PLAS 12.2 Normal [facility] Comment on above: Performed By: #### L [id number] ####[facility] ([facility])[address] [place] [address] CBCon 06-29-2023 Erythrocyte distribution width (RBC) [Ratio] 15.8 % High 11.5-15.0 [facility] Comment on above: Performed By: #### L [id number] ####[facility] ([facility])[address] [place] [address] ERYTHROCYTE MEAN CORPUSCULAR HEMOGLOBIN CONCENTRATION (G/DL) BY AUTOMATED 33.6 g/dL Normal 32.0-35.0 [facility] Comment on above: Performed By: #### L [id number] ####[facility] ([facility])[address] [place] [address] Hematocrit (Bld) [Volume fraction] 23.5 % Low 39.0-55.0 [facility] Comment on above: Performed By: #### L [id number] ####[facility] ([facility])[address] [place] [address] Hemoglobin (Bld) [Mass/Vol] 7.9 g/dL Low 13.0-17.0 [facility] Comment on above: Performed By: #### L [id number] ####[facility] ([facility])[address] [place] [address] MCH (RBC) [Entitic mass] 29.5 pg Normal 27.0-33.0 [facility] Comment on above: Performed By: #### L [id number] ####[facility] ([facility])[address] [place] [address] MCV (RBC) [Entitic vol] 87.7 fL Normal 82.0-98.0 [facility] Comment on above: Performed By: #### L [id number] ####[facility] ([facility])[address] [place] [address] PLATELETS (10*3/UL) IN BLOOD AUTOMATED COUNT 161 10*3/uL Normal 150-400 [facility] Comment on above: Performed By: #### L [id number] ####[facility] ([facility])[address] [place] [address] RBC (Bld) [#/Vol] 2.68 10*6/uL Low 4.20-5.70 [facility] Comment on above: Performed By: #### L [id number] ####[facility] ([facility])[address] [place] [address] WBC (Bld) [#/Vol] 6.52 10*3/uL Normal 4.00-10.60 [facility] Comment on above: Performed By: #### L [id number] ####[facility] ([facility])[address] [place] [address] MAGNESIUMon 06-29-2023 Magnesium [Mass/Vol] 2.3 mg/dL Normal 1.9-2.7 [facility] Comment on above: Performed By: #### L [id number] ####[facility] ([facility])[address] [place] [address] Magnesium [Mass/Vol] 2.0 mg/dL Normal 1.9-2.7 [facility] Comment on above: Performed By: #### L [id number] ####[facility] ([facility])[address] [place] [address] NURSNOTEon 06-29-2023 NURSNOTE Normal [facility] PHOSPHORUSon 06-29-2023 Magnesium [Mass/Vol] 3.2 mg/dL Normal 2.5-5.0 [facility] Comment on above: Performed By: #### L [id number] ####[facility] ([facility])[address] [place] [address] POCT GLUCOSE METER UNSOLICIT ED RESULTSon 06-29-2023 Glucose [Mass/Vol] 129 mg/dL High 70-105 [facility] Comment on above: Order Comment: Waive d Testing in the ED is performed under the ED CLIA certificate #[id number]. Result Comment: [email or web address] Performed By: #### L [id number] ####[facility] ([facility])[address] [address] Glucose [Mass/Vol] 108 mg/dL High 70-105 [facility] Comment on above: Order Comment: Waive d Testing in the ED is performed under the ED CLIA certificate #[id number]. Result Comment: [email or web address] Performed By: #### L [id number] ####[facility] ([facility])[address] [place] [address] Glucose [Mass/Vol] 142 mg/dL High 70-105 [facility] Comment on above: Order Comment: Waive d Testing in the ED is performed under the ED CLIA certificate #[id number]. Result Comment: [email or web address] Performed By: #### L [id number] ####[facility] ([facility])[address] [place] [address] Glucose [Mass/Vol] 136 mg/dL High 70-105 [facility] Comment on above: Order Comment: Waive d Testing in the ED is performed under the ED CLIA certificate #[id number]. Result Comment: [email or web address] Performed By: #### L [id number] ####[facility] ([facility])[address] [place] [address] POTASSIUMon 06-29-2023 Potassium [Moles/Vol] 4.3 mmol/L Normal 3.5-5.1 [facility] Comment on above: Performed By: #### L [id number] ####[facility] ([facility])[address] [place] [address] PROTIME-INRon 06-29-2023 INR IN PPP BY COAGULATION ASSAY 1.13 High 0.90-1.10 [facility] Comment on above: Result Comment: ACCC P [...] CHEST 1995;108:231S-246S. Performed By: #### L [id number] ####[facility] ([facility])[address] [place] [address] PROTHROMBIN TIME (PT) IN PPP BY COAGULATION ASSAY 14.5 Seconds Normal 12.3-14.8 [facility] Comment on above: Performed By: #### L [id number] ####[facility] ([facility])[address] [place] [address] 30on 06-28-2023 30 Normal [facility] 30 Normal [facility] ANTI-XA (HEPARIN LEVEL)on HEPARIN UNFRACTIONATED (U/ML) IN PPP BY CHROMOGENIC METHOD 0.25 IU/mL Low 0.3-0.7 [facility] Comment on above: Result Comment: [place] roxaban and Apixaban will interfere with the anti Xa assay used to monitor UFH and LMWH. Performed By: #### L [id number] ####[facility] ([facility])[address] [place] [address] HEPARIN UNFRACTIONATED (U/ML) IN PPP BY CHROMOGENIC METHOD 0.16 IU/mL Invalid Interpretation Code 0.3-0.7 [facility] Comment on above: Result Comment: [place] roxaban and Apixaban will interfere with the anti Xa assay used to monitor UFH and LMWH. Performed By: #### L [id number] ####[facility] ([facility])[address] [place] [address] HEPARIN UNFRACTIONATED (U/ML) IN PPP BY CHROMOGENIC METHOD <0.10 Invalid Interpretation Code 0.3-0.7 [facility] Comment on above: Order Comment: Check anti-Xa level every 6 hours while on heparin infusion, or per protocol. Result Comment: [place] roxaban and Apixaban will interfere with the anti Xa assay used to monitor UFH and LMWH. Performed By: #### L [id number] ####[facility] ([facility])[address] [place] [address] APTTon 06-28-2023 ACTIVATED PARTIAL THROMBOPLASTIN TIME IN PPP BY COAGULATION ASSAY 31.5 Seconds Normal 25.0-35.0 [facility] Comment on above: Order Comment: Basel ine aPTT before initiating heparin infusion. Result Comment: Clin ical significance of the APTT is questionable in the presence of heparin. Performed By: #### L [id number] ####[facility] ([facility])[address] [place] [address] BASIC METABOLIC PANELon - Anion gap [Moles/Vol] 14 mmol/L Normal 7-20 [facility] Comment on above: Performed By: #### L [id number] ####[facility] ([facility])[address] [place] [address] Calcium [Mass/Vol] 8.1 mg/dL Low 8.6-10.3 [facility] Comment on above: Performed By: #### L [id number] ####[facility] ([facility])[address] [place] [address] Chloride [Moles/Vol] 95 mmol/L Low 98-107 [facility] Comment on above: Performed By: #### L [id number] ####[facility] ([facility])[address] [place] [address] CO2 [Moles/Vol] 25 mmol/L Normal 21-31 [facility] Comment on above: Performed By: #### L [id number] ####[facility] ([facility])[address] [place] [address] Creatinine [Mass/Vol] 0.69 mg/dL Low 0.70-1.30 [facility] Comment on above: Performed By: #### L [id number] ####[facility] ([facility])[address] [place] [address] GLOMERULAR FILTRATION RATE ML/MIN/1.73 SQ M.PREDICTED 112.7 mL/min/1.73m*2 Normal >60.0 [facility] Comment on above: Result Comment: The [facility]???s estimated glomerular filtration rate (eGFR) will no [...] of individuals. Performed By: #### L [id number] ####[facility] ([facility])[address] [place] [address] Glucose [Mass/Vol] 103 mg/dL High 70-100 [facility] Comment on above: Performed By: #### L [id number] ####[facility] ([facility])[address] [place] [address] Potassium [Moles/Vol] 3.9 mmol/L Normal 3.5-5.1 [facility] Comment on above: Performed By: #### L [id number] ####[facility] ([facility])[address] [place] [address] Sodium [Moles/Vol] 130 mmol/L Low 136-145 [facility] Comment on above: Performed By: #### L [id number] ####[facility] ([facility])[address] [place] [address] Urea nitrogen [Mass/Vol] 10 mg/dL Normal 7-25 [facility] Comment on above: Performed By: #### L [id number] ####[facility] ([facility])[address] [place] [address] UREA NITROGEN/CREATININE (MASS RATIO) IN SER/PLAS 14.5 Normal [facility] Comment on above: Performed By: #### L [id number] ####[facility] ([facility])[address] [place] [address] Anion gap [Moles/Vol] 8 mmol/L Normal 7-20 [facility] Comment on above: Performed By: #### L [id number] ####[facility] ([facility])[address] [place] [address] Calcium [Mass/Vol] 8.1 mg/dL Low 8.6-10.3 [facility] Comment on above: Performed By: #### L [id number] ####[facility] ([facility])[address] [place] [address] Chloride [Moles/Vol] 98 mmol/L Normal 98-107 [facility] Comment on above: Performed By: #### L [id number] ####[facility] ([facility])[address] [place] [address] CO2 [Moles/Vol] 29 mmol/L Normal 21-31 [facility] Comment on above: Performed By: #### L [id number] ####[facility] ([facility])[address] [place] [address] Creatinine [Mass/Vol] 0.73 mg/dL Normal 0.70-1.30 [facility] Comment on above: Performed By: #### L [id number] ####[facility] ([facility])[address] [place] [address] GLOMERULAR FILTRATION RATE ML/MIN/1.73 SQ M.PREDICTED 110.8 mL/min/1.73m*2 Normal >60.0 [facility] Comment on above: Result Comment: The [facility]???s estimated glomerular filtration rate (eGFR) will no [...] of individuals. Performed By: #### L [id number] ####[facility] ([facility])[address] [place] [address] Glucose [Mass/Vol] 118 mg/dL High 70-100 [facility] Comment on above: Performed By: #### L [id number] ####[facility] ([facility])[address] [place] [address] Potassium [Moles/Vol] 3.8 mmol/L Normal 3.5-5.1 [facility] Comment on above: Performed By: #### L [id number] ####[facility] ([facility])[address] [place] [address] Sodium [Moles/Vol] 131 mmol/L Low 136-145 [facility] Comment on above: Performed By: #### L [id number] ####[facility] ([facility])[address] [place] [address] Urea nitrogen [Mass/Vol] 10 mg/dL Normal 7-25 [facility] Comment on above: Performed By: #### L [id number] ####[facility] ([facility])[address] [place] [address] UREA NITROGEN/CREATININE (MASS RATIO) IN SER/PLAS 13.7 Normal [facility] Comment on above: Performed By: #### L [id number] ####[facility] ([facility])[address] [place] [address] CBCon 06-28-2023 Erythrocyte distribution width (RBC) [Ratio] 15.6 % High 11.5-15.0 [facility] Comment on above: Performed By: #### L [id number] ####[facility] ([facility])[address] [place] [address] ERYTHROCYTE MEAN CORPUSCULAR HEMOGLOBIN CONCENTRATION (G/DL) BY AUTOMATED 33.8 g/dL Normal 32.0-35.0 [facility] Comment on above: Performed By: #### L [id number] ####[facility] ([facility])[address] [place] [address] Hematocrit (Bld) [Volume fraction] 20.4 % Low 39.0-55.0 [facility] Comment on above: Performed By: #### L [id number] ####[facility] ([facility])[address] [place] [address] Hemoglobin (Bld) [Mass/Vol] 6.9 g/dL Low 13.0-17.0 [facility] Comment on above: Performed By: #### L [id number] ####[facility] ([facility])[address] [place] [address] IMMATURE PLATELET FRACTION % 5.6 % Normal 0.8-6.3 [facility] Comment on above: Performed By: #### L [id number] ####[facility] ([facility])[address] [place] [address] MCH (RBC) [Entitic mass] 29.5 pg Normal 27.0-33.0 [facility] Comment on above: Performed By: #### L [id number] ####[facility] ([facility])[address] [place] [address] MCV (RBC) [Entitic vol] 87.2 fL Normal 82.0-98.0 [facility] Comment on above: Performed By: #### L [id number] ####[facility] ([facility])[address] [place] [address] PLATELETS (10*3/UL) IN BLOOD AUTOMATED COUNT 127 10*3/uL Low 150-400 [facility] Comment on above: Performed By: #### L [id number] ####[facility] ([facility])[address] [place] [address] RBC (Bld) [#/Vol] 2.34 10*6/uL Low 4.20-5.70 [facility] Comment on above: Performed By: #### L [id number] ####[facility] ([facility])[address] [place] [address] WBC (Bld) [#/Vol] 6.57 10*3/uL Normal 4.00-10.60 [facility] Comment on above: Performed By: #### L [id number] ####[facility] ([facility])[address] [place] [address] CKon 06-28-2023 CREATINE KINASE (U/L) IN SER/PLAS 560.0 U/L High 30.0-223.0 [facility] Comment on above: Performed By: #### L [id number] ####[facility] ([facility])[address] [place] [address] CONSULTon 06-28-2023 CONSULT Normal [facility] MAGNESIUMon 06-28-2023 Magnesium [Mass/Vol] 1.9 mg/dL Normal 1.9-2.7 [facility] Comment on above: Performed By: #### L [id number] ####[facility] ([facility])[address] [place] [address] PLATELET COUNTon 06-28-2023 IMMATURE PLATELET FRACTION % 6.1 % Normal 0.8-6.3 [facility] Comment on above: Performed By: #### L [id number] ####[facility] ([facility])[address] [place] [address] PLATELETS (10*3/UL) IN BLOOD AUTOMATED COUNT 126 10*3/uL Low 150-400 [facility] Comment on above: Performed By: #### L [id number] ####[facility] ([employer])[address] [place] [address] POCT GLUCOSE METER UNSOLICIT ED RESULTSon 06-28-2023 Glucose [Mass/Vol] 95 mg/dL Normal 70-105 [facility] Comment on above: Order Comment: Waive d Testing in the ED is performed under the ED CLIA certificate #[id number]. Result Comment: [email or web address] Performed By: #### L [id number] ####[facility] ([facility])[address] [place] [address] Glucose [Mass/Vol] 118 mg/dL High 70-105 [facility] Comment on above: Order Comment: Waive d Testing in the ED is performed under the ED CLIA certificate #[id number]. Result Comment: [email or web address] gabo Performed By: #### L [id number] ####[facility] ([employer])[address] [place] [address] Glucose [Mass/Vol] 111 mg/dL High 70-105 [facility] Comment on above: Order Comment: Waive d Testing in the ED is performed under the ED CLIA certificate #[id number]. Result Comment: [email or web address] Performed By: #### L [id number] ####[facility] ([employer])[address] [place] [address] Glucose [Mass/Vol] 160 mg/dL High 70-105 [facility] Comment on above: Order Comment: Waive d Testing in the ED is performed under the ED CLIA certificate #[id number]. Result Comment: lui contreras Performed By: #### L [id number] ####[facility] ([facility])[address] [place] [address] PROTIME-INRon 06-28-2023 INR IN PPP BY COAGULATION ASSAY 1.16 High 0.90-1.10 [facility] Comment on above: Result Comment: ACCC P [...] CHEST 1995;108:231S-246S. Performed By: #### L [id number] ####[facility] ([employer])[address] [place] [address] PROTHROMBIN TIME (PT) IN PPP BY COAGULATION ASSAY 14.8 Seconds Normal 12.3-14.8 [facility] Comment on above: Performed By: #### L [id number] ####[facility] ([facility])[address] [place] [address] 30on 06-27-2023 30 Normal [facility] 30 Normal [facility] APTTon 06-27-2023 ACTIVATED PARTIAL THROMBOPLASTIN TIME IN PPP BY COAGULATION ASSAY 35.5 Seconds High 25.0-35.0 [facility] Comment on above: Result Comment: Clin ical significance of the APTT is questionable in the presence of heparin. Performed By: #### L [id number] ####[facility] ([employer])[address] [place] [address] BASIC METABOLIC PANELon 05-31 Anion gap [Moles/Vol] 9 mmol/L Normal 7-20 [facility] Comment on above: Performed By: #### L [id number] ####[facility] ([facility])[address] [place] [address] Calcium [Mass/Vol] 8.3 mg/dL Low 8.6-10.3 [facility] Comment on above: Performed By: #### L [id number] ####[facility] ([facility])[address] [place] [address] Chloride [Moles/Vol] 104 mmol/L Normal 98-107 [facility] Comment on above: Performed By: #### L [id number] ####[facility] ([facility])[address] [place] [address] CO2 [Moles/Vol] 26 mmol/L Normal 21-31 [facility] Comment on above: Performed By: #### L [id number] ####[facility] ([facility])[address] [place] [address] Creatinine [Mass/Vol] 0.78 mg/dL Normal 0.70-1.30 [facility] Comment on above: Performed By: #### L [id number] ####[facility] ([facility])[address] [place] [address] GLOMERULAR FILTRATION RATE ML/MIN/1.73 SQ M.PREDICTED 108.6 mL/min/1.73m*2 Normal >60.0 [facility] Comment on above: Result Comment: The [facility]???s estimated glomerular filtration rate (eGFR) will no [...] of individuals. Performed By: #### L [id number] ####[facility] ([facility])[address] [place] [address] Glucose [Mass/Vol] 117 mg/dL High 70-100 [facility] Comment on above: Performed By: #### L [id number] ####[facility] ([facility])[address] [place] [address] Potassium [Moles/Vol] 4.9 mmol/L Normal 3.5-5.1 [facility] Comment on above: Performed By: #### L [id number] ####[facility] ([facility])[address] [place] [address] Sodium [Moles/Vol] 134 mmol/L Low 136-145 [facility] Comment on above: Performed By: #### L [id number] ####[facility] ([facility])[address] [place] [address] Urea nitrogen [Mass/Vol] 10 mg/dL Normal 7-25 [facility] Comment on above: Performed By: #### L [id number] ####[facility] ([facility])[address] [place] [address] UREA NITROGEN/CREATININE (MASS RATIO) IN SER/PLAS 12.8 Normal [facility] Comment on above: Performed By: #### L [id number] ####[facility] ([facility])[address] [place] [address] CBCon 06-27-2023 Erythrocyte distribution width (RBC) [Ratio] 15.9 % High 11.5-15.0 [facility] Comment on above: Performed By: #### L [id number] ####[facility] ([facility])[address] [place] [address] ERYTHROCYTE MEAN CORPUSCULAR HEMOGLOBIN CONCENTRATION (G/DL) BY AUTOMATED 34.4 g/dL Normal 32.0-35.0 [facility] Comment on above: Performed By: #### L [id number] ####[facility] ([facility])[address] [place] [address] Hematocrit (Bld) [Volume fraction] 21.8 % Low 39.0-55.0 [facility] Comment on above: Performed By: #### L [id number] ####[facility] ([facility])[address] [place] [address] Hemoglobin (Bld) [Mass/Vol] 7.5 g/dL Low 13.0-17.0 [facility] Comment on above: Performed By: #### L [id number] ####[facility] ([facility])[address] [place] [address] IMMATURE PLATELET FRACTION % 4.8 % Normal 0.8-6.3 [facility] Comment on above: Performed By: #### L [id number] ####[facility] ([facility])[address] [place] [address] MCH (RBC) [Entitic mass] 30.2 pg Normal 27.0-33.0 [facility] Comment on above: Performed By: #### L [id number] ####[facility] ([facility])[address] [place] [address] MCV (RBC) [Entitic vol] 87.9 fL Normal 82.0-98.0 [facility] Comment on above: Performed By: #### L [id number] ####[facility] ([facility])[address] [place], [place] [address] PLATELETS (10*3/UL) IN BLOOD AUTOMATED COUNT 116 10*3/uL Low 150-400 [facility] Comment on above: Performed By: #### L [id number] ####[facility] ([facility])[address] [place] [address] RBC (Bld) [#/Vol] 2.48 10*6/uL Low 4.20-5.70 [facility] Comment on above: Performed By: #### L [id number] ####[facility] ([facility])[address] [place] [address] WBC (Bld) [#/Vol] 5.34 10*3/uL Normal 4.00-10.60 [facility] Comment on above: Performed By: #### L [id number] ####[facility] ([facility])[address] [place] [address] CONSULTon 06-27-2023 CONSULT Normal [facility] MAGNESIUMon 06-27-2023 Magnesium [Mass/Vol] 2.0 mg/dL Normal 1.9-2.7 [facility] Comment on above: Performed By: #### L [id number] ####[facility] ([facility])[address] [place] [address] PHOSPHORUSon 06-27-2023 Magnesium [Mass/Vol] 4.2 mg/dL Normal 2.5-5.0 [facility] Comment on above: Performed By: #### L [id number] ####[facility] ([facility])[address] [place] [address] POCT GLUCOSE METER UNSOLICIT ED RESULTSon 06-27-2023 Glucose [Mass/Vol] 154 mg/dL High 70-105 [facility] Comment on above: Order Comment: Waive d Testing in the ED is performed under the ED CLIA certificate #[id number]. Result Comment: mer jha Performed By: #### L [id number] ####[facility] ([facility])[address] [place] [address] Glucose [Mass/Vol] 114 mg/dL High 70-105 [facility] Comment on above: Order Comment: Waive d Testing in the ED is performed under the ED CLIA certificate #[id number]. Result Comment: mer jha Performed By: #### L [id number] ####[facility] ([facility])[address] [place] [address] Glucose [Mass/Vol] 108 mg/dL High 70-105 [facility] Comment on above: Order Comment: Waive d Testing in the ED is performed under the ED CLIA certificate #[id number]. Result Comment: mer jha Performed By: #### L [id number] ####[facility] ([facility])[address] [place] [address] Glucose [Mass/Vol] 112 mg/dL High 70-105 [facility] Comment on above: Order Comment: Waive d Testing in the ED is performed under the ED CLIA certificate #[id number]. Result Comment: mmcc gabo Performed By: #### L [id number] ####[facility] ([facility])[address] [place] [address] Glucose [Mass/Vol] 111 mg/dL High 70-105 [facility] Comment on above: Order Comment: Waive d Testing in the ED is performed under the ED CLIA certificate #[id number]. Result Comment: mmcc gabo Performed By: #### L [id number] ####[facility] ([facility])[address] [place] [address] Glucose [Mass/Vol] 120 mg/dL High 70-105 [facility] Comment on above: Order Comment: Waive d Testing in the ED is performed under the ED CLIA certificate #[id number]. Result Comment: mmcc gabo Performed By: #### L [id number] ####[facility] ([facility])[address] [place] [address] Glucose [Mass/Vol] 128 mg/dL High 70-105 [facility] Comment on above: Order Comment: Waive d Testing in the ED is performed under the ED CLIA certificate #[id number]. Result Comment: mmcc gabo Performed By: #### L [id number] ####[facility] ([facility])[address] [place] [address] PROTIME-INRon 06-27-2023 INR IN PPP BY COAGULATION ASSAY 1.30 High 0.90-1.10 [facility] Comment on above: Order Comment: On ar [...] CHEST 1995;108:[id number]. Performed By: #### L [id number] ####[facility] ([facility])[address] [place] [address] PROTHROMBIN TIME (PT) IN PPP BY COAGULATION ASSAY 16.3 Seconds High 12.3-14.8 [facility] Comment on above: Order Comment: On ar rival to SICU Performed By: #### L [id number] ####[facility] ([facility])[address] [address] 30on 06-26-2023 30 Normal [facility] 30 Normal [facility] 30 Normal [facility] ANESon 06-26-2023 ANES Normal [facility] APTTon 06-26-2023 ACTIVATED PARTIAL THROMBOPLASTIN TIME IN PPP BY COAGULATION ASSAY 30.1 Seconds Normal 25.0-35.0 [facility] Comment on above: Result Comment: Clin ical significance of the APTT is questionable in the presence of heparin. Performed By: #### L [id number] ####[facility] ([facility])[address] [place] [address] ACTIVATED PARTIAL THROMBOPLASTIN TIME IN PPP BY COAGULATION ASSAY 29.1 Seconds Normal 25.0-35.0 [facility] Comment on above: Order Comment: Pre-o p diagnosis:Aortic valve disorder [I35.9] Result Comment: Clin ical significance of the APTT is questionable in the presence of heparin. Performed By: #### L [id number] ####[facility] ([facility])[address] [place] [address] ACTIVATED PARTIAL THROMBOPLASTIN TIME IN PPP BY COAGULATION ASSAY 31.8 Seconds Normal 25.0-35.0 [facility] Comment on above: Result Comment: Clin ical significance of the APTT is questionable in the presence of heparin. Performed By: #### L [id number] ####[facility] ([facility])[address] [place] [address] ARTERIAL BLOOD GAS WITH IONI ZED CALCIUMon 06-26-2023 Base excess Calc (Bld) [Moles/Vol] -3.3000 mmol/L Low -2.0-3.0 [facility] Comment on above: Performed By: #### L [id number] ####[facility] [id number] [place] [address] [place] CALCIUM IONIZED (MMOL/L) IN BLOOD 1.09 mmol/L Low 1.15-1.33 [facility] Comment on above: Performed By: #### L [id number] ####[facility] [id number] [place] [address] [place] CO2 (Bld) [Partial pressure] 35 mm[Hg] Normal 35-48 [facility] Comment on above: Performed By: #### L [id number] ####[facility] [id number] [place] [address] [place] FIO2 40 % Normal [facility] Comment on above: Performed By: #### L [id number] ####[facility] [id number] [place] [address] [place] HCO3 (Bld) [Moles/Vol] 21.2 mmol/L Normal 21.0-28.0 [facility] Comment on above: Performed By: #### L [id number] ####[facility] [id number] [place] [address] [place] Oxygen (Bld) [Partial pressure] 118 mm[Hg] High 83-100 [facility] Comment on above: Performed By: #### L [id number] ####[facility] [id number] [place] [address] [place] OXYGEN SATURATION (%) IN ARTERIAL BLOOD 98.8 % High 94.0-98.0 [facility] Comment on above: Performed By: #### L [id number] ####[facility] [id number] [place] [address] [facility] PEEP 6 cmH2O Normal [facility] Comment on above: Performed By: #### L [id number] ####[facility] [id number] [place] [address] [facility] pH (Bld) 7.39 [pH] Normal 7.35-7.45 [facility] Comment on above: Performed By: #### L [id number] ####[facility] [id number] [place], [place] [address] PRESSURE SUPPORT 12 Normal [facility] Comment on above: Performed By: #### L [id number] ####[facility] [id number] [place], [place] [address] SOURCE OF OXYGEN Bi-PAP Normal [facility] Comment on above: Performed By: #### L [id number] ####[facility] [id number] [place] [address] [facility] Base excess Calc (Bld) [Moles/Vol] -5.8000 mmol/L Low -2.0-3.0 [facility] Comment on above: Performed By: #### L [id number] ####[facility] [id number] [place] [address] [facility] CALCIUM IONIZED (MMOL/L) IN BLOOD 1.19 mmol/L Normal 1.15-1.33 [facility] Comment on above: Performed By: #### L [id number] ####[facility] [id number] [place] [address] [facility] CO2 (Bld) [Partial pressure] 44 mm[Hg] Normal 35-48 [facility] Comment on above: Performed By: #### L [id number] ####[facility] [id number] [place] [address] [facility] FIO2 40 % Normal [facility] Comment on above: Performed By: #### L [id number] ####[facility] [id number] [place], [place] [address] HCO3 (Bld) [Moles/Vol] 20.7 mmol/L Low 21.0-28.0 [facility] Comment on above: Performed By: #### L [id number] ####[facility] [id number] [place] [address] [facility] Oxygen (Bld) [Partial pressure] 102 mm[Hg] High 83-100 [facility] Comment on above: Performed By: #### L [id number] ####[facility] [id number] [place] [address] [facility] OXYGEN SATURATION (%) IN ARTERIAL BLOOD 99.5 % High 94.0-98.0 [facility] Comment on above: Performed By: #### L [id number] ####[facility] [id number] [place] [address] [facility] PEEP 6 cmH2O Normal [facility] Comment on above: Performed By: #### L [id number] ####[facility] [id number] [place] [address] [facility] pH (Bld) 7.28 [pH] Low 7.35-7.45 [facility] Comment on above: Performed By: #### L [id number] ####[facility] [id number] [place] [address] [facility] PRESSURE SUPPORT 12 Normal [facility] Comment on above: Performed By: #### L [id number] ####[facility] [id number] [place] [address] [facility] SOURCE OF OXYGEN Bi-PAP Normal [facility] Comment on above: Performed By: #### L [id number] ####[facility] [id number] [place] [address] [facility] BASIC METABOLIC PANELon 03-2 Anion gap [Moles/Vol] 10 mmol/L Normal - [facility] Comment on above: Performed By: #### L [id number] ####[facility] ([facility])[address] [place] [address] Calcium [Mass/Vol] 8.1 mg/dL Low 8.6-10.3 [facility] Comment on above: Performed By: #### L [id number] ####[facility] ([facility])[address] [place] [address] Chloride [Moles/Vol] 108 mmol/L High 98-107 [facility] Comment on above: Performed By: #### L [id number] ####[facility] ([facility])[address] [place] [address] CO2 [Moles/Vol] 24 mmol/L Normal 21-31 [facility] Comment on above: Performed By: #### L [id number] ####[facility] ([facility])[address] [place] [address] Creatinine [Mass/Vol] 0.72 mg/dL Normal 0.70-1.30 [facility] Comment on above: Performed By: #### L [id number] ####[facility] ([facility])[address] [place] [address] GLOMERULAR FILTRATION RATE ML/MIN/1.73 SQ M.PREDICTED 111.3 mL/min/1.73m*2 Normal >60.0 [facility] Comment on above: Result Comment: The [facility]???s estimated glomerular filtration rate (eGFR) will no [...] of individuals. Performed By: #### L [id number] ####[facility] ([facility])[address] [place] [address] Glucose [Mass/Vol] 151 mg/dL High 70-100 [facility] Comment on above: Performed By: #### L [id number] ####[facility] ([facility])[address] [place] [address] Potassium [Moles/Vol] 4.1 mmol/L Normal 3.5-5.1 [facility] Comment on above: Performed By: #### L [id number] ####[facility] ([facility])[address] [place] [address] Sodium [Moles/Vol] 138 mmol/L Normal 136-145 [facility] Comment on above: Performed By: #### L [id number] ####[facility] ([facility])[address] [place] [address] Urea nitrogen [Mass/Vol] 11 mg/dL Normal 7-25 [facility] Comment on above: Performed By: #### L [id number] ####[facility] ([facility])[address] [place] [address] UREA NITROGEN/CREATININE (MASS RATIO) IN SER/PLAS 15.3 Normal [facility] Comment on above: Performed By: #### L [id number] ####[facility] ([facility])[address] [place] [address] Anion gap [Moles/Vol] 14 mmol/L Normal 7-20 [facility] Comment on above: Order Comment: Pre-o p diagnosis:Aortic valve disorder [I35.9] Performed By: #### L [id number] ####[facility] ([facility])[address] [place] [address] Calcium [Mass/Vol] 7.9 mg/dL Low 8.6-10.3 [facility] Comment on above: Order Comment: Pre-o p diagnosis:Aortic valve disorder [I35.9] Performed By: #### L [id number] ####[facility] ([facility])[address] [place] [address] Chloride [Moles/Vol] 107 mmol/L Normal 98-107 [facility] Comment on above: Order Comment: Pre-o p diagnosis:Aortic valve disorder [I35.9] Performed By: #### L [id number] ####[facility] ([facility])[address] [place] [address] CO2 [Moles/Vol] 21 mmol/L Normal 21-31 [facility] Comment on above: Order Comment: Pre-o p diagnosis:Aortic valve disorder [I35.9] Performed By: #### L [id number] ####[facility] ([facility])[address] [place] [address] Creatinine [Mass/Vol] 0.76 mg/dL Normal 0.70-1.30 [facility] Comment on above: Order Comment: Pre-o p diagnosis:Aortic valve disorder [I35.9] Performed By: #### L [id number] ####[facility] ([facility])[address] [place] [address] GLOMERULAR FILTRATION RATE ML/MIN/1.73 SQ M.PREDICTED 109.5 mL/min/1.73m*2 Normal >60.0 [facility] Comment on above: Order Comment: Pre-o p diagnosis:Aortic valve disorder [I35.9] Result Comment: The [facility]???s estimated glomerular filtration rate (eGFR) will no [...] of individuals. Performed By: #### L [id number] ####[facility] ([facility])[address] [place] [address] Glucose [Mass/Vol] 194 mg/dL High 70-100 [facility] Comment on above: Order Comment: Pre-o p diagnosis:Aortic valve disorder [I35.9] Performed By: #### L [id number] ####[facility] ([facility])[address] [place] [address] Potassium [Moles/Vol] 3.9 mmol/L Normal 3.5-5.1 [facility] Comment on above: Order Comment: Pre-o p diagnosis:Aortic valve disorder [I35.9] Performed By: #### L [id number] ####[facility] ([facility])[address] [place] [address] Sodium [Moles/Vol] 138 mmol/L Normal 136-145 [facility] Comment on above: Order Comment: Pre-o p diagnosis:Aortic valve disorder [I35.9] Performed By: #### L [id number] ####[facility] ([facility])[address] [place] [address] Urea nitrogen [Mass/Vol] 11 mg/dL Normal 7-25 [facility] Comment on above: Order Comment: Pre-o p diagnosis:Aortic valve disorder [I35.9] Performed By: #### L [id number] ####[facility] ([facility])[address] [place] [address] UREA NITROGEN/CREATININE (MASS RATIO) IN SER/PLAS 14.5 Normal [facility] Comment on above: Order Comment: Pre-o p diagnosis:Aortic valve disorder [I35.9] Performed By: #### L [id number] ####[facility] ([facility])[address] [place] [address] CBCon 06-26-2023 Erythrocyte distribution width (RBC) [Ratio] 15.5 % High 11.5-15.0 [facility] Comment on above: Performed By: #### L [id number] ####[facility] ([facility])[address] [place] [address] ERYTHROCYTE MEAN CORPUSCULAR HEMOGLOBIN CONCENTRATION (G/DL) BY AUTOMATED 34.0 g/dL Normal 32.0-35.0 [facility] Comment on above: Performed By: #### L [id number] ####[facility] ([facility])[address] [place] [address] Hematocrit (Bld) [Volume fraction] 29.4 % Low 39.0-55.0 [facility] Comment on above: Performed By: #### L [id number] ####[facility] ([facility])[address] [place] [address] Hemoglobin (Bld) [Mass/Vol] 10.0 g/dL Low 13.0-17.0 [facility] Comment on above: Performed By: #### L [id number] ####[facility] ([facility])[address] [place] [address] IMMATURE PLATELET FRACTION % 3.8 % Normal 0.8-6.3 [facility] Comment on above: Performed By: #### L [id number] ####[facility] ([facility])[address] [place] [address] MCH (RBC) [Entitic mass] 29.6 pg Normal 27.0-33.0 [facility] Comment on above: Performed By: #### L [id number] ####[facility] ([facility])[address] [place] [address] MCV (RBC) [Entitic vol] 87.0 fL Normal 82.0-98.0 [facility] Comment on above: Performed By: #### L [id number] ####[facility] ([facility])[address] [place] [address] PLATELETS (10*3/UL) IN BLOOD AUTOMATED COUNT 108 10*3/uL Low 150-400 [facility] Comment on above: Performed By: #### L [id number] ####[facility] ([facility])[address] [place] [address] RBC (Bld) [#/Vol] 3.38 10*6/uL Low 4.20-5.70 [facility] Comment on above: Performed By: #### L [id number] ####[facility] ([facility])[address] [place] [address] WBC (Bld) [#/Vol] 6.87 10*3/uL Normal 4.00-10.60 [facility] Comment on above: Performed By: #### L [id number] ####[facility] ([facility])[address] [place] [address] Erythrocyte distribution width (RBC) [Ratio] 15.3 % High 11.5-15.0 [facility] Comment on above: Order Comment: Pre-o p diagnosis:Aortic valve disorder [I35.9] Performed By: #### L [id number] ####[facility] ([facility])[address] [place] [address] ERYTHROCYTE MEAN CORPUSCULAR HEMOGLOBIN CONCENTRATION (G/DL) BY AUTOMATED 34.5 g/dL Normal 32.0-35.0 [facility] Comment on above: Order Comment: Pre-o p diagnosis:Aortic valve disorder [I35.9] Performed By: #### L [id number] ####[facility] ([facility])[address] [place] [address] Hematocrit (Bld) [Volume fraction] 29.3 % Low 39.0-55.0 [facility] Comment on above: Order Comment: Pre-o p diagnosis:Aortic valve disorder [I35.9] Performed By: #### L [id number] ####[facility] ([facility])[address] [place] [address] Hemoglobin (Bld) [Mass/Vol] 10.1 g/dL Low 13.0-17.0 [facility] Comment on above: Order Comment: Pre-o p diagnosis:Aortic valve disorder [I35.9] Performed By: #### L [id number] ####[facility] ([facility])[address] [place] [address] IMMATURE PLATELET FRACTION % 4.1 % Normal 0.8-6.3 [facility] Comment on above: Order Comment: Pre-o p diagnosis:Aortic valve disorder [I35.9] Performed By: #### L [id number] ####[facility] ([facility])[address] [place] [address] MCH (RBC) [Entitic mass] 29.9 pg Normal 27.0-33.0 [facility] Comment on above: Order Comment: Pre-o p diagnosis:Aortic valve disorder [I35.9] Performed By: #### L [id number] ####[facility] ([facility])[address] [place] [address] MCV (RBC) [Entitic vol] 86.7 fL Normal 82.0-98.0 [facility] Comment on above: Order Comment: Pre-o p diagnosis:Aortic valve disorder [I35.9] Performed By: #### L [id number] ####[facility] ([facility])[address] [place] [address] PLATELETS (10*3/UL) IN BLOOD AUTOMATED COUNT 135 10*3/uL Low 150-400 [facility] Comment on above: Order Comment: Pre-o p diagnosis:Aortic valve disorder [I35.9] Performed By: #### L [id number] ####[facility] ([facility])[address] [place] [address] RBC (Bld) [#/Vol] 3.38 10*6/uL Low 4.20-5.70 [facility] Comment on above: Order Comment: Pre-o p diagnosis:Aortic valve disorder [I35.9] Performed By: #### L [id number] ####[facility] ([facility])[address] [place] [address] WBC (Bld) [#/Vol] 9.24 10*3/uL Normal 4.00-10.60 [facility] Comment on above: Order Comment: Pre-o p diagnosis:Aortic valve disorder [I35.9] Performed By: #### L [id number] ####[facility] ([facility])[address] [place] [address] CBC WITH AUTO DIFFERENTIALon 06-26-2023 Basophils (Bld) [#/Vol] 0.04 10*3/uL Normal 0.00-0.20 [facility] Comment on above: Performed By: #### L [id number] ####[facility] ([facility])[address] [place] [address] Basophils/100 WBC (Bld) 0.8 % Normal 0.0-1.0 [facility] Comment on above: Performed By: #### L [id number] ####[facility] ([employer])[address] [place] [address] Eosinophils (Bld) [#/Vol] 0.28 10*3/uL Normal 0.00-0.50 [facility] Comment on above: Performed By: #### L [id number] ####[facility] ([facility])[address] [place] [address] Eosinophils/100 WBC (Bld) 5.9 % Normal 0.0-6.0 [facility] Comment on above: Performed By: #### L [id number] ####[facility] ([facility])[address] [place] [address] Erythrocyte distribution width (RBC) [Ratio] 15.9 % High 11.5-15.0 [facility] Comment on above: Performed By: #### L [id number] ####[facility] ([facility])[address] [place] [address] ERYTHROCYTE MEAN CORPUSCULAR HEMOGLOBIN CONCENTRATION (G/DL) BY AUTOMATED 33.7 g/dL Normal 32.0-35.0 [facility] Comment on above: Performed By: #### L [id number] ####[facility] ([facility])[address] [place] [address] Hematocrit (Bld) [Volume fraction] 32.6 % Low 39.0-55.0 [facility] Comment on above: Performed By: #### L [id number] ####[facility] ([facility])[address] [place] [address] Hemoglobin (Bld) [Mass/Vol] 11.0 g/dL Low 13.0-17.0 [facility] Comment on above: Performed By: #### L [id number] ####[facility] ([facility])[address] [place] [address] Immature granulocytes (Bld) [#/Vol] 0.01 10*3/uL Normal 0.00-0.20 [facility] Comment on above: Performed By: #### L [id number] ####[facility] ([facility])[address] [place] [address] Immature granulocytes/100 WBC (Bld) 0.2 % Normal 0.0-1.0 [facility] Comment on above: Performed By: #### L [id number] ####[facility] ([facility])[address] [place] [address] Lymphocytes (Bld) [#/Vol] 0.86 10*3/uL Low 1.20-4.00 [facility] Comment on above: Performed By: #### L [id number] ####[facility] ([facility])[address] [place] [address] Lymphocytes/100 WBC (Bld) 18.3 % Low 20.0-45.0 [facility] Comment on above: Performed By: #### L [id number] ####[facility] ([facility])[address] [place] [address] MCH (RBC) [Entitic mass] 29.4 pg Normal 27.0-33.0 [facility] Comment on above: Performed By: #### L [id number] ####[facility] ([facility])[address] [place] [address] MCV (RBC) [Entitic vol] 87.2 fL Normal 82.0-98.0 [facility] Comment on above: Performed By: #### L [id number] ####[facility] ([facility])[address] [place] [address] Monocytes (Bld) [#/Vol] 0.50 10*3/uL Normal 0.10-1.00 [facility] Comment on above: Performed By: #### L [id number] ####[facility] ([facility])[address] [place] [address] Monocytes/100 WBC (Bld) 10.6 % Normal 5.0-12.0 [facility] Comment on above: Performed By: #### L [id number] ####[facility] ([facility])[address] [place] [address] Neutrophils (Bld) [#/Vol] 3.02 10*3/uL Normal 1.60-7.60 [facility] Comment on above: Performed By: #### L [id number] ####[facility] ([facility])[address] [place] [address] Neutrophils/100 WBC (Bld) 64.2 % Normal 40.0-72.0 [facility] Comment on above: Performed By: #### L [id number] ####[facility] ([facility])[address] [place] [address] NRBC (PER 100 WBCS) BY AUTOMATED COUNT 0.0 % Normal 0 [facility] Comment on above: Performed By: #### L [id number] ####[facility] ([facility])[address] [place] [address] PLATELETS (10*3/UL) IN BLOOD AUTOMATED COUNT 159 10*3/uL Normal 150-400 [facility] Comment on above: Performed By: #### L [id number] ####[facility] ([facility])[address] [place] [address] RBC (Bld) [#/Vol] 3.74 10*6/uL Low 4.20-5.70 [facility] Comment on above: Performed By: #### L [id number] ####[facility] ([facility])[address] [place] [address] WBC (Bld) [#/Vol] 4.71 10*3/uL Normal 4.00-10.60 [facility] Comment on above: Performed By: #### L [id number] ####[facility] ([facility])[address] [place] [address] CO-OXIMETRYon 06-26-2023 CARBOXYHEMOGLOBIN/HE MOGLOBIN TOTAL % IN BLOOD 2.3 % Normal [facility] Comment on above: Performed By: #### L [id number] ####[facility] [id number] [place] [address] [place] Hemoglobin (Bld) [Mass/Vol] 9.5 g/dL Normal [facility] Comment on above: Performed By: #### L [id number] ####[facility] [id number] [place] [address] [place] METHEMOGLOBIN/100 IN BLOOD 0.5 % Normal 0.0-1.5 [facility] Comment on above: Performed By: #### L [id number] ####[facility] [id number] [place] [address] [place] Oxygen saturation in Blood 61.9 % Normal [facility] Comment on above: Performed By: #### L [id number] ####[facility] [id number] [place] [address] [place] OXYGENATED HEMOGLOBIN IN BLOOD 60.2 % Normal [facility] Comment on above: Performed By: #### L [id number] ####[facility] [id number] [place] [address] [facility] COMPREHENSIVE METABOLIC PANE Braulio 06-26-2023 Albumin [Mass/Vol] 4.1 g/dL Normal 3.5-5.7 [facility] Comment on above: Performed By: #### L [id number] ####[facility] ([facility])[address] [place] [address] ALP [Catalytic activity/Vol] 51 U/L Normal 34-104 [facility] Comment on above: Performed By: #### L [id number] ####[facility] ([facility])[address] [place] [address] ALT [Catalytic activity/Vol] 13 U/L Normal 7-52 [facility] Comment on above: Performed By: #### L [id number] ####[facility] ([facility])[address] [place] [address] Anion gap [Moles/Vol] 10 mmol/L Normal 7-20 [facility] Comment on above: Performed By: #### L [id number] ####[facility] ([facility])[address] [place] [address] AST [Catalytic activity/Vol] 12 U/L Low 13-39 [facility] Comment on above: Performed By: #### L [id number] ####[facility] ([facility])[address] [place] [address] Bilirubin [Mass/Vol] 0.9 mg/dL Normal 0.3-1.0 [facility] Comment on above: Performed By: #### L [id number] ####[facility] ([facility])[address] [place] [address] Calcium [Mass/Vol] 8.6 mg/dL Normal 8.6-10.3 [facility] Comment on above: Performed By: #### L [id number] ####[facility] ([facility] [place] [address] Chloride [Moles/Vol] 104 mmol/L Normal 98-107 [facility] Comment on above: Performed By: #### L [id number] ####[facility] ([facility])[address] [place] [address] CO2 [Moles/Vol] 26 mmol/L Normal 21-31 [facility] Comment on above: Performed By: #### L [id number] ####[facility] ([facility])[address] [place] [address] Creatinine [Mass/Vol] 0.82 mg/dL Normal 0.70-1.30 [facility] Comment on above: Performed By: #### L [id number] ####[facility] ([facility])[address] [place] [address] GLOMERULAR FILTRATION RATE ML/MIN/1.73 SQ M.PREDICTED 107.0 mL/min/1.73m*2 Normal >60.0 [facility] Comment on above: Result Comment: [facility]???s estimated glomerular filtration rate (eGFR) will no [...] of individuals. Performed By: #### L [id number] ####[facility] ([facility])[address] [place] [address] Glucose [Mass/Vol] 97 mg/dL Normal 70-100 [facility] Comment on above: Performed By: #### L [id number] ####[facility] ([facility])[address] [place] [address] Potassium [Moles/Vol] 4.0 mmol/L Normal 3.5-5.1 [facility] Comment on above: Performed By: #### L [id number] ####[facility] ([facility])[address] [place] [address] Protein [Mass/Vol] 6.0 g/dL Normal 6.0-8.3 [facility] Comment on above: Performed By: #### L [id number] ####[facility] ([facility])[address] [place] [address] Sodium [Moles/Vol] 136 mmol/L Normal 136-145 [facility] Comment on above: Performed By: #### L [id number] ####[facility] ([facility])[address] [place] [address] Urea nitrogen [Mass/Vol] 12 mg/dL Normal 7-25 [facility] Comment on above: Performed By: #### L [id number] ####[facility] ([facility])[address] [place] [address] UREA NITROGEN/CREATININE (MASS RATIO) IN SER/PLAS 14.6 Normal [facility] Comment on above: Performed By: #### L [id number] ####[facility] ([facility])[address] [place] [address] CONSULTon 06-26-2023 CONSULT Normal [facility] DEVICE CULTUREon 06-26-2023 Bacteria identified Cx Nom (Unsp spec) No growth at 3 days Normal [facility] Comment on above: Order Comment: RIGHT ARM PICC LINE CULTURE Performed By: #### D EVICE CULTURE ####[facility] ([facility])[address] [facility] [place] [address] FIBRINOGENon 06-26-2023 Magnesium [Mass/Vol] 402 mg/dL Normal 150-425 [facility] Comment on above: Order Comment: Pre-o p diagnosis:Aortic valve disorder [I35.9] Performed By: #### L [id number] ####[facility] ([facility])[address] [facility] [address] HISTOLOGY - TISSUE EXAMon LAB AP CASE REPORT Normal [facility] Comment on above: Order Comment: Pre-o p diagnosis:Aortic valve disorder [I35.9] Result Comment: Surg ical Pathology Case: [id number] Provider: Paul George MD Collected: 06/26/2023 1153Ordering Location: [facility] Received: 06/26/2023 1354Pathologist: LILIA Prakashpecimen: Other, AORTIC VALVE LEAFLET FOR HISTOLOGY Performed By: #### L [id number] ####[facility] ([facility])[address] [facility] [address] LAB AP CLINICAL INFORMATION Normal [facility] Comment on above: Order Comment: Pre-o p diagnosis:Aortic valve disorder [I35.9] Result Comment: Post -Op [id number] - Aortic valve disorder [ICD-10-CM] Performed By: #### L [id number] ####[facility] ([facility])[address] [facility] [place] [address] LAB AP GROSS DESCRIPTION A. Other. Normal [facility] Comment on above: Order Comment: Pre-o p [...] identified. The specimen is serially sectioned and outbound sales representative sections are submitted in 1 cassette.Nai Sheth, Pathologists' Poultry Process Worker Jaspreet Chawla, Pathologists' Poultry Process Worker Performed By: #### L [id number] ####[facility] ([facility] [place] [address] LAB AP MICROSCOPIC DESCRIPTION Microscopic examination performed. [facility] Comment on above: Order Comment: Pre-o p diagnosis:Aortic valve disorder [I35.9] Performed By: #### L [id number] ####[facility] ([facility])[address] [place] [address] LAB AP REPORT FINAL DIAGNOSIS NARRATIVE [facility] Comment on above: Order Comment: Pre-o p diagnosis:Aortic valve disorder [I35.9] Result Comment: A. A ortic valve leaflet, removal:- Valvular tissue with fibrinoid necrosis and acute inflammation. Performed By: #### L [id number] ####[facility] ([facility])[address] [place] [address] LACTIC ACID WITH 4 HOUR REFL EXon 06-26-2023 LACTATE (MMOL/L) IN SER/PLAS 1.5 mmol/L Normal 0.5-2.2 [facility] Comment on above: Order Comment: Pre-o p diagnosis:Aortic valve disorder [I35.9] Performed By: #### L [id number] ####[facility] ([facility])[address] [place] [address] LACTATE (MMOL/L) IN SER/PLAS 3.1 mmol/L Critically high 0.5-2.2 [facility] Comment on above: Order Comment: Pre-o p diagnosis:Aortic valve disorder [I35.9] Performed By: #### L [id number] ####[facility] ([facility])[address] [place] [address] LACTIC ACID, PLASMAon 2023 LACTATE (MMOL/L) IN SER/PLAS 2.4 mmol/L High 0.5-2.2 [facility] Comment on above: Performed By: #### L [id number] ####[facility] ([facility])[address] [place] [address] MAGNESIUMon 06-26-2023 Magnesium [Mass/Vol] 2.4 mg/dL Normal 1.9-2.7 [facility] Comment on above: Performed By: #### L [id number] ####[facility] ([facility])[address] [place] [address] Magnesium [Mass/Vol] 2.6 mg/dL Normal 1.9-2.7 [facility] Comment on above: Order Comment: Pre-o p diagnosis:Aortic valve disorder [I35.9] Performed By: #### L [id number] ####[facility] ([facility])[address] [place] [address] Magnesium [Mass/Vol] 2.0 mg/dL Normal 1.9-2.7 [facility] Comment on above: Performed By: #### L [id number] ####[facility] ([facility])[address] [place] [address] OPNOTEon 06-26-2023 OPNOTE Normal [facility] PHOSPHORUSon 06-26-2023 Magnesium [Mass/Vol] 3.9 mg/dL Normal 2.5-5.0 [facility] Comment on above: Performed By: #### L [id number] ####[facility] ([facility])[address] [place] [address] Magnesium [Mass/Vol] 4.2 mg/dL Normal 2.5-5.0 [facility] Comment on above: Performed By: #### L [id number] ####[facility] ([facility])[address] [place] [address] POCT ACTIVATED CLOTTING TIME UNSOLICITED RESULTSon 06-26-2023 POC ACTIVATED CLOTTING TIME 143 sec Normal 82-152 [facility] Comment on above: Performed By: #### L [id number] ####[facility] ([facility])[address] [place] [address] POC ACTIVATED CLOTTING TIME 148 sec Normal 82-152 [facility] Comment on above: Performed By: #### L [id number] ####[facility] ([facility])[address] [place] [address] POC ACTIVATED CLOTTING TIME 473 sec High 82-152 [facility] Comment on above: Performed By: #### L [id number] ####[facility] ([facility])[address] [place] [address] POC ACTIVATED CLOTTING TIME 562 sec High 82-152 [facility] Comment on above: Performed By: #### L [id number] ####[facility] ([facility])[address] [place] [address] POC ACTIVATED CLOTTING TIME 602 sec High 82-152 [facility] Comment on above: Performed By: #### L [id number] ####[facility] ([facility])[address] [place] [address] POC ACTIVATED CLOTTING TIME 679 sec High 82-152 [facility] Comment on above: Performed By: #### L [id number] ####[facility] ([facility])[address] [place] [address] POC ACTIVATED CLOTTING TIME 772 sec High 82-152 [facility] Comment on above: Performed By: #### L [id number] ####[facility] ([facility])[address] [place] [address] POC ACTIVATED CLOTTING TIME 772 sec High 82-152 [facility] Comment on above: Performed By: #### L [id number] ####[facility] ([facility])[address] [place] [address] POC ACTIVATED CLOTTING TIME 701 sec High 82-152 [facility] Comment on above: Performed By: #### L [id number] ####[facility] ([facility])[address] [place] [address] POC ACTIVATED CLOTTING TIME 154 sec High 82-152 [facility] Comment on above: Performed By: #### L [id number] ####[facility] ([facility])[address] [place] [address] POCT GLUCOSE METER UNSOLICIT ED RESULTSon 06-26-2023 Glucose [Mass/Vol] 132 mg/dL High 70-105 [facility] Comment on above: Order Comment: Waive d Testing in the ED is performed under the ED CLIA certificate #[id number]. Result Comment: mmcc gabo Performed By: #### L [id number] ####[facility] ([facility])[address] [place] [address] Glucose [Mass/Vol] 126 mg/dL High 70-105 [facility] Comment on above: Order Comment: Waive d Testing in the ED is performed under the ED CLIA certificate #[id number]. Result Comment: mmcc gabo Performed By: #### L [id number] ####[facility] ([facility])[address] [place] [address] Glucose [Mass/Vol] 135 mg/dL High 70-105 [facility] Comment on above: Order Comment: Waive d Testing in the ED is performed under the ED CLIA certificate #[id number]. Result Comment: pcar r Performed By: #### L [id number] ####[facility] ([facility])[address] [place] [address] Glucose [Mass/Vol] 131 mg/dL High 70-105 [facility] Comment on above: Order Comment: Waive d Testing in the ED is performed under the ED CLIA certificate #[id number]. Result Comment: [email or web address] [email or web address] Performed By: #### L [id number] ####[facility] ([facility])[address] [place] [address] POCT PERFUSION PANEL UNSOLIC ITED RESULTSon 06-26-2023 CO2 [Moles/Vol] 22.0 mmol/L Normal 21.0-29.0 [facility] Comment on above: Performed By: #### L [id number] ####[facility] ([facility])[address] [place] [address] Glucose [Mass/Vol] 197 mg/dL High 70-105 [facility] Comment on above: Performed By: #### L [id number] ####[facility] ([facility])[address] [place] [address] HCO3 (Bld) [Moles/Vol] 20.8 mmol/L Low 23.0-28.0 [facility] Comment on above: Performed By: #### L [id number] ####[facility] ([facility])[address] [place] [address] Hematocrit (Bld) [Volume fraction] 30 % Low 38-51 [facility] Comment on above: Performed By: #### L [id number] ####[facility] ([facility])[address] [place] [address] Hemoglobin (Bld) [Mass/Vol] 10.2 g/dL Low 12.0-17.0 [facility] Comment on above: Performed By: #### L [id number] ####[facility] ([facility])[address] [place] [address] POCT BASE EXCESS -4.0 mmol/L Low -2.0-3.0 [facility] Comment on above: Performed By: #### L [id number] ####[facility] ([facility])[address] [place] [address] POCT IONIZED CALCIUM 1.17 mmol/L Normal 1.12-1.32 [facility] Comment on above: Performed By: #### L [id number] ####[facility] ([facility])[address] [place] [address] POCT PCO2 36.5 mmHg Low 41.0-51.0 [facility] Comment on above: Performed By: #### L [id number] ####[facility] ([facility])[address] [place] [address] POCT PH 7.36 Normal 7.31-7.41 [facility] Comment on above: Performed By: #### L [id number] ####[facility] ([facility])[address] [place] [address] POCT PO2 240 mmHg High 80-105 [facility] Comment on above: Performed By: #### L [id number] ####[facility] ([facility])[address] [place] [address] POCT SO2 100 % High 95-98 [facility] Comment on above: Performed By: #### L [id number] ####[facility] ([facility])[address] [place] [address] Potassium [Moles/Vol] 3.9 mmol/L Normal 3.5-4.9 [facility] Comment on above: Performed By: #### L [id number] ####[facility] ([facility])[address] [place] [address] Sodium [Moles/Vol] 139 mmol/L Normal 138.0-146.0 [facility] Comment on above: Performed By: #### L [id number] ####[facility] ([facility])[address] [place] [address] CO2 [Moles/Vol] 23.0 mmol/L Normal 21.0-29.0 [facility] Comment on above: Performed By: #### L [id number] ####[facility] ([facility])[address] [place] [address] Glucose [Mass/Vol] 208 mg/dL High 70-105 [facility] Comment on above: Performed By: #### L [id number] ####[facility] ([facility])[address] [place] [address] HCO3 (Bld) [Moles/Vol] 21.6 mmol/L Low 23.0-28.0 [facility] Comment on above: Performed By: #### L [id number] ####[facility] ([facility])[address] [place] [address] Hematocrit (Bld) [Volume fraction] 28 % Low 38-51 [facility] Comment on above: Performed By: #### L [id number] ####[facility] ([facility])[address] [place] [address] Hemoglobin (Bld) [Mass/Vol] 9.5 g/dL Low 12.0-17.0 [facility] Comment on above: Performed By: #### L [id number] ####[facility] ([facility])[address] [place] [address] POCT BASE EXCESS -4.0 mmol/L Low -2.0-3.0 [facility] Comment on above: Performed By: #### L [id number] ####[facility] ([facility])[address] [place] [address] POCT IONIZED CALCIUM 1.22 mmol/L Normal 1.12-1.32 [facility] Comment on above: Performed By: #### L [id number] ####[facility] ([facility])[address] [place] [address] POCT PCO2 38.6 mmHg Low 41.0-51.0 [facility] Comment on above: Performed By: #### L [id number] ####[facility] ([facility])[address] [place] [address] POCT PH 7.36 Normal 7.31-7.41 [facility] Comment on above: Performed By: #### L [id number] ####[facility] ([facility])[address] [place] [address] POCT PO2 265 mmHg High 80-105 [facility] Comment on above: Performed By: #### L [id number] ####[facility])[address] [place] [address] POCT SO2 100 % High 95-98 [facility] Comment on above: Performed By: #### L [id number] ####[facility])[address] [place] [address] Potassium [Moles/Vol] 3.9 mmol/L Normal 3.5-4.9 [facility] Comment on above: Performed By: #### L [id number] ####[facility] ([facility])[address] [place] [address] Sodium [Moles/Vol] 137 mmol/L Low 138.0-146.0 [facility] Comment on above: Performed By: #### L [id number] ####[facility] ([facility])[address] [place] [address] CO2 [Moles/Vol] 25.0 mmol/L Normal 21.0-29.0 [facility] Comment on above: Performed By: #### L [id number] ####[facility] ([facility])[address] [place] [address] Glucose [Mass/Vol] 216 mg/dL High 70-105 [facility] Comment on above: Performed By: #### L [id number] ####[facility] ([facility])[address] [place] [address] HCO3 (Bld) [Moles/Vol] 23.3 mmol/L Normal 23.0-28.0 [facility] Comment on above: Performed By: #### L [id number] ####[facility] ([facility])[address] [place] [address] Hematocrit (Bld) [Volume fraction] 28 % Low 38-51 [facility] Comment on above: Performed By: #### L [id number] ####[facility] ([facility])[address] [place] [address] Hemoglobin (Bld) [Mass/Vol] 9.5 g/dL Low 12.0-17.0 [facility] Comment on above: Performed By: #### L [id number] ####[facility] ([facility])[address] [place] [address] POCT BASE EXCESS -3.0 mmol/L Low -2.0-3.0 [facility] Comment on above: Performed By: #### L [id number] ####[facility] ([facility])[address] [place] [address] POCT IONIZED CALCIUM 1.29 mmol/L Normal 1.12-1.32 [facility] Comment on above: Performed By: #### L [id number] ####[facility] ([facility])[address] [place] [address] POCT PCO2 46.6 mmHg Normal 41.0-51.0 [facility] Comment on above: Performed By: #### L [id number] ####[facility] ([facility])[address] [place] [address] POCT PH 7.31 Normal 7.31-7.41 [facility] Comment on above: Performed By: #### L [id number] ####[facility] ([facility])[address] [address] POCT PO2 348 mmHg High 80-105 [facility] Comment on above: Performed By: #### L [id number] ####[facility] ([facility])[address] [place] [address] POCT SO2 100 % High 95-98 [facility] Comment on above: Performed By: #### L [id number] ####[facility] ([facility])[address] [place], [place] [address] Potassium [Moles/Vol] 4.7 mmol/L Normal 3.5-4.9 [facility] Comment on above: Performed By: #### L [id number] ####[facility] ([facility])[address] [place] [address] Sodium [Moles/Vol] 136 mmol/L Low 138.0-146.0 [facility] Comment on above: Performed By: #### L [id number] ####[facility] ([facility])[address] [place] [address] CO2 [Moles/Vol] 26.0 mmol/L Normal 21.0-29.0 [facility] Comment on above: Performed By: #### L [id number] ####[facility] ([facility])[address] [place] [address] Glucose [Mass/Vol] 173 mg/dL High 70-105 [facility] Comment on above: Performed By: #### L [id number] ####[facility])[address] [place] [address] HCO3 (Bld) [Moles/Vol] 24.8 mmol/L Normal 23.0-28.0 [facility] Comment on above: Performed By: #### L [id number] ####[facility])[address] [place] [address] Hematocrit (Bld) [Volume fraction] 30 % Low 38-51 [facility] Comment on above: Performed By: #### L [id number] ####[facility] ([facility])[address] [place] [address] Hemoglobin (Bld) [Mass/Vol] 10.2 g/dL Low 12.0-17.0 [facility] Comment on above: Performed By: #### L [id number] ####[facility] ([facility])[address] [place] [address] POCT BASE EXCESS 0.0 mmol/L Normal -2.0-3.0 [facility] Comment on above: Performed By: #### L [id number] ####[facility] ([facility])[address] [place] [address] POCT IONIZED CALCIUM 1.57 mmol/L Critically high 1.12-1.32 [facility] Comment on above: Performed By: #### L [id number] ####[facility])[address] [place] [address] POCT PCO2 40.5 mmHg Low 41.0-51.0 [facility] Comment on above: Performed By: #### L [id number] ####[facility] ([facility])[address] [place] [address] POCT PH 7.40 Normal 7.31-7.41 [facility] Comment on above: Performed By: #### L [id number] ####[facility] ([facility])[address] [place] [address] POCT PO2 321 mmHg High 80-105 [facility] Comment on above: Performed By: #### L [id number] ####[facility] ([facility])[address] [place] [address] POCT SO2 100 % High 95-98 [facility] Comment on above: Performed By: #### L [id number] ####[facility] ([facility])[address] [place] [address] Potassium [Moles/Vol] 5.4 mmol/L High 3.5-4.9 [facility] Comment on above: Performed By: #### L [id number] ####[facility] ([facility])[address] [place] [address] Sodium [Moles/Vol] 134 mmol/L Low 138.0-146.0 [facility] Comment on above: Performed By: #### L [id number] ####[facility] ([facility])[address] [place] [address] CO2 [Moles/Vol] 25.0 mmol/L Normal 21.0-29.0 [facility] Comment on above: Performed By: #### L [id number] ####[facility] ([facility])[address] [place] [address] Glucose [Mass/Vol] 171 mg/dL High 70-105 [facility] Comment on above: Performed By: #### L [id number] ####[facility] ([facility])[address] [place] [address] HCO3 (Bld) [Moles/Vol] 23.6 mmol/L Normal 23.0-28.0 [facility] Comment on above: Performed By: #### L [id number] ####[facility] ([facility])[address] [place] [address] Hematocrit (Bld) [Volume fraction] 30 % Low 38-51 [facility] Comment on above: Performed By: #### L [id number] ####[facility] ([facility])[address] [place] [address] Hemoglobin (Bld) [Mass/Vol] 10.2 g/dL Low 12.0-17.0 [facility] Comment on above: Performed By: #### L [id number] ####[facility] ([facility])[address] [place] [address] POCT BASE EXCESS -2.0 mmol/L Normal -2.0-3.0 [facility] Comment on above: Performed By: #### L [id number] ####[facility] ([facility]AKER)[address] [address] POCT IONIZED CALCIUM 1.12 mmol/L Normal 1.12-1.32 [facility] Comment on above: Performed By: #### L [id number] ####[facility] ([facility])[address] [address] POCT PCO2 44.0 mmHg Normal 41.0-51.0 [facility] Comment on above: Performed By: #### L [id number] ####[facility] ([facility])[address] [address] POCT PH 7.34 Normal 7.31-7.41 [facility] Comment on above: Performed By: #### L [id number] ####[facility] ([facility])[address] [address] POCT PO2 390 mmHg High 80-105 [facility] Comment on above: Performed By: #### L [id number] ####[facility] ([facility])[address] [address] POCT SO2 100 % High 95-98 [facility] Comment on above: Performed By: #### L [id number] ####[facility] ([facility])[address] [address] Potassium [Moles/Vol] 5.4 mmol/L High 3.5-4.9 [facility] Comment on above: Performed By: #### L [id number] ####[facility] ([facility])[address] [place] [address] Sodium [Moles/Vol] 136 mmol/L Low 138.0-146.0 [facility] Comment on above: Performed By: #### L [id number] ####[facility] ([facility])[address] [address] CO2 [Moles/Vol] 25.0 mmol/L Normal 21.0-29.0 [facility] Comment on above: Performed By: #### L [id number] ####[facility] ([facility])[address] [address] Glucose [Mass/Vol] 184 mg/dL High 70-105 [facility] Comment on above: Performed By: #### L [id number] ####[facility] ([facility])[address] [address] HCO3 (Bld) [Moles/Vol] 23.7 mmol/L Normal 23.0-28.0 [facility] Comment on above: Performed By: #### L [id number] ####[facility] (BEAKER)[address] [place] [address] Hematocrit (Bld) [Volume fraction] 33 % Low 38-51 [facility] Comment on above: Performed By: #### L [id number] ####[facility] ([facility])[address] [place] [address] Hemoglobin (Bld) [Mass/Vol] 11.2 g/dL Low 12.0-17.0 [facility] Comment on above: Performed By: #### L [id number] ####[facility] ([facility])[address] [place] [address] POCT BASE EXCESS -3.0 mmol/L Low -2.0-3.0 [facility] Comment on above: Performed By: #### L [id number] ####[facility] ([facility])[address] [place], [place] [address] POCT IONIZED CALCIUM 1.09 mmol/L Low 1.12-1.32 [facility] Comment on above: Performed By: #### L [id number] ####[facility] ([facility])[address] [address] POCT PCO2 46.1 mmHg Normal 41.0-51.0 [facility] Comment on above: Performed By: #### L [id number] ####[facility] ([facility])[address] [address] POCT PH 7.32 Normal 7.31-7.41 [facility] Comment on above: Performed By: #### L [id number] ####[facility] ([facility]AKER)[address] [address] POCT PO2 400 mmHg High 80-105 [facility] Comment on above: Performed By: #### L [id number] ####[facility] ([facility])[address] [address] POCT SO2 100 % High 95-98 [facility] Comment on above: Performed By: #### L [id number] ####[facility] ([facility]AKER)[address], [place] [address] Potassium [Moles/Vol] 4.5 mmol/L Normal 3.5-4.9 [facility] Comment on above: Performed By: #### L [id number] ####[facility] (BEAKER)[address], [place] [address] Sodium [Moles/Vol] 136 mmol/L Low 138.0-146.0 [facility] Comment on above: Performed By: #### L [id number] ####[facility] ([facility])[address] [place], [place] [address] CO2 [Moles/Vol] 25.0 mmol/L Normal 21.0-29.0 [facility] Comment on above: Performed By: #### L [id number] ####[facility] ([facility])[address] [place] [address] Glucose [Mass/Vol] 193 mg/dL High 70-105 [facility] Comment on above: Performed By: #### L [id number] ####[facility] ([facility])[address] [place] [address] HCO3 (Bld) [Moles/Vol] 23.6 mmol/L Normal 23.0-28.0 [facility] Comment on above: Performed By: #### L [id number] ####[facility] ([facility]AKER)[address] [place] [address] Hematocrit (Bld) [Volume fraction] 26 % Low 38-51 [facility] Comment on above: Performed By: #### L [id number] ####[facility] (BEAKER)[address] [place] [address] Hemoglobin (Bld) [Mass/Vol] 8.8 g/dL Low 12.0-17.0 [facility] Comment on above: Performed By: #### L [id number] ####[facility] ([facility]AKER)[address] [place] [address] POCT BASE EXCESS -2.0 mmol/L Normal -2.0-3.0 [facility] Comment on above: Performed By: #### L [id number] ####[facility] ([facility]AKER)[address] [place] [address] POCT IONIZED CALCIUM 1.06 mmol/L Low 1.12-1.32 [facility] Comment on above: Performed By: #### L [id number] ####[facility] ([facility])[address] [place] [address] POCT PCO2 40.9 mmHg Low 41.0-51.0 [facility] Comment on above: Performed By: #### L [id number] ####[facility] ([facility])[address] [place] [address] POCT PH 7.37 Normal 7.31-7.41 [facility] Comment on above: Performed By: #### L [id number] ####[facility] ([facility])[address] [place] [address] POCT PO2 510 mmHg High 80-105 [facility] Comment on above: Performed By: #### L [id number] ####[facility] ([facility])[address] [place] [address] POCT SO2 100 % High 95-98 [facility] Comment on above: Performed By: #### L [id number] ####[facility] ([facility])[address] [place] [address] Potassium [Moles/Vol] 4.4 mmol/L Normal 3.5-4.9 [facility] Comment on above: Performed By: #### L [id number] ####[facility] ([facility])[address] [place] [address] Sodium [Moles/Vol] 135 mmol/L Low 138.0-146.0 [facility] Comment on above: Performed By: #### L [id number] ####[facility] ([facility])[address] [place] [address] CO2 [Moles/Vol] 24.0 mmol/L Normal 21.0-29.0 [facility] Comment on above: Performed By: #### L [id number] ####[facility] ([facility])[address] [place] [address] Glucose [Mass/Vol] 185 mg/dL High 70-105 [facility] Comment on above: Performed By: #### L [id number] ####[facility] ([facility])[address] [place] [address] HCO3 (Bld) [Moles/Vol] 22.7 mmol/L Low 23.0-28.0 [facility] Comment on above: Performed By: #### L [id number] ####[facility] ([facility])[address] [place] [address] Hematocrit (Bld) [Volume fraction] 26 % Low 38-51 [facility] Comment on above: Performed By: #### L [id number] ####[facility] ([facility])[address] [address] Hemoglobin (Bld) [Mass/Vol] 8.8 g/dL Low 12.0-17.0 [facility] Comment on above: Performed By: #### L [id number] ####[facility] ([facility])[address] [address] POCT BASE EXCESS -2.0 mmol/L Normal -2.0-3.0 [facility] Comment on above: Performed By: #### L [id number] ####[facility] ([facility]ER)[address] [address] POCT IONIZED CALCIUM 1.10 mmol/L Low 1.12-1.32 [facility] Comment on above: Performed By: #### L [id number] ####[facility] ([facility])[address] [address] POCT PCO2 37.2 mmHg Low 41.0-51.0 [facility] Comment on above: Performed By: #### L [id number] ####[facility] ([facility])[address] [address] POCT PH 7.39 Normal 7.31-7.41 [facility] Comment on above: Performed By: #### L [id number] ####[facility] ([facility])[address] [address] POCT PO2 485 mmHg High 80-105 [facility] Comment on above: Performed By: #### L [id number] ####[facility] ([facility])[address] [address] POCT SO2 100 % High 95-98 [facility] Comment on above: Performed By: #### L [id number] ####[facility] ([facility])[address] [address] Potassium [Moles/Vol] 3.7 mmol/L Normal 3.5-4.9 [facility] Comment on above: Performed By: #### L [id number] ####[facility] ([facility]ER)[address] [place] [address] Sodium [Moles/Vol] 136 mmol/L Low 138.0-146.0 [facility] Comment on above: Performed By: #### L [id number] ####[facility] ([facility]ER)[address] [place] [address] CO2 [Moles/Vol] 23.0 mmol/L Normal 21.0-29.0 [facility] Comment on above: Performed By: #### L [id number] ####[facility] (BEAKER)[address], [place] [address] Glucose [Mass/Vol] 132 mg/dL High 70-105 [facility] Comment on above: Performed By: #### L [id number] ####[facility] ([facility])[address] [place] [address] HCO3 (Bld) [Moles/Vol] 21.5 mmol/L Low 23.0-28.0 [facility] Comment on above: Performed By: #### L [id number] ####[facility] (BEAKER)[address] [place] [address] Hematocrit (Bld) [Volume fraction] 29 % Low 38-51 [facility] Comment on above: Performed By: #### L [id number] ####[facility] ([facility]ER)[address] [place] [address] Hemoglobin (Bld) [Mass/Vol] 9.9 g/dL Low 12.0-17.0 [facility] Comment on above: Performed By: #### L [id number] ####[facility] ([facility])[address] [place] [address] POCT BASE EXCESS -4.0 mmol/L Low -2.0-3.0 [facility] Comment on above: Performed By: #### L [id number] ####[facility] ([facility])[address] [address] POCT IONIZED CALCIUM 1.27 mmol/L Normal 1.12-1.32 [facility] Comment on above: Performed By: #### L [id number] ####[facility] [address] POCT PCO2 38.3 mmHg Low 41.0-51.0 [facility] Comment on above: Performed By: #### L [id number] ####[facility] ([facility])[address] [address] POCT PH 7.36 Normal 7.31-7.41 [facility] Comment on above: Performed By: #### L [id number] ####[facility] ([facility])[address] [address] POCT PO2 214 mmHg High 80-105 [facility] Comment on above: Performed By: #### L [id number] ####[facility] ([facility])[address] [address] POCT SO2 100 % High 95-98 [facility] Comment on above: Performed By: #### L [id number] ####[facility] ([facility])[address], [place] [address] Potassium [Moles/Vol] 3.9 mmol/L Normal 3.5-4.9 [facility] Comment on above: Performed By: #### L [id number] ####[facility] ([facility])[address] [address] Sodium [Moles/Vol] 137 mmol/L Low 138.0-146.0 [facility] Comment on above: Performed By: #### L [id number] ####[facility] ([facility], [place] [address] POCT BASE EXCESS Normal [facility] Comment on above: Performed By: #### L [id number] ####[facility] ([facility])[address] [place] [address] POCT GLUCOSE Normal [facility] Comment on above: Performed By: #### L [id number] ####[facility] ([facility])[address] [place] [address] POCT HCO3 Normal [facility] Comment on above: Performed By: #### L [id number] ####[facility] ([facility])[address] [place] [address] POCT HEMATOCRIT Normal [facility] Comment on above: Performed By: #### L [id number] ####[facility] [place] [address] POCT HEMOGLOBIN Normal [facility] Comment on above: Performed By: #### L [id number] ####[facility] ([facility])[address] [place] [address] POCT IONIZED CALCIUM Normal [facility] Comment on above: Performed By: #### L [id number] ####[facility] ([facility])[address] [place] [address] POCT PCO2 Normal [facility] Comment on above: Performed By: #### L [id number] ####[facility] ([facility])[address] [place] [address] POCT PH Normal [facility] Comment on above: Performed By: #### L [id number] ####[facility] ([facility])[address] [place] [address] POCT PO2 53 mmHg Low 80-105 [facility] Comment on above: Performed By: #### L [id number] ####[facility] ([facility])[address] [place] [address] POCT POTASSIUM Normal [facility] Comment on above: Performed By: #### L [id number] ####[facility] ([facility])[address] [place] [address] POCT SO2 85 % Low 95-98 [facility] Comment on above: Performed By: #### L [id number] ####[facility] ([facility])[address] [place] [address] POCT SODIUM Normal [facility] Comment on above: Performed By: #### L [id number] ####[facility] ([facility]AKER)[address] [place] [address] POCT TOTAL CO2 Normal [facility] Comment on above: Performed By: #### L [id number] ####[facility] ([facility] [address] CO2 [Moles/Vol] 25.0 mmol/L Normal 21.0-29.0 [facility] Comment on above: Performed By: #### L [id number] ####[facility] ([facility])[address], [place] [address] Glucose [Mass/Vol] 114 mg/dL High 70-105 [facility] Comment on above: Performed By: #### L [id number] ####[facility] ([facility])[address] [address] HCO3 (Bld) [Moles/Vol] 23.4 mmol/L Normal 23.0-28.0 [facility] Comment on above: Performed By: #### L [id number] ####[facility] ([facility])[address] [place] [address] Hematocrit (Bld) [Volume fraction] 30 % Low 38-51 [facility] Comment on above: Performed By: #### L [id number] ####[facility] (BEAKER)[address] [place] [address] Hemoglobin (Bld) [Mass/Vol] 10.2 g/dL Low 12.0-17.0 [facility] Comment on above: Performed By: #### L [id number] ####[facility] (BEAKER)[address] [place] [address] POCT BASE EXCESS -2.0 mmol/L Normal -2.0-3.0 [facility] Comment on above: Performed By: #### L [id number] ####[facility] ([facility])[address] [place] [address] POCT IONIZED CALCIUM 1.19 mmol/L Normal 1.12-1.32 [facility] Comment on above: Performed By: #### L [id number] ####[facility] ([facility])[address] [place] [address] POCT PCO2 40.0 mmHg Low 41.0-51.0 [facility] Comment on above: Performed By: #### L [id number] ####[facility] ([facility])[address] [place] [address] POCT PH 7.38 Normal 7.31-7.41 [facility] Comment on above: Performed By: #### L [id number] ####[facility] ([facility])[address] [place] [address] POCT PO2 159 mmHg High 80-105 [facility] Comment on above: Performed By: #### L [id number] ####[facility] ([facility])[address] [place] [address] POCT SO2 99 % High 95-98 [facility] Comment on above: Performed By: #### L [id number] ####[facility] ([facility])[address] [place] [address] Potassium [Moles/Vol] 4.1 mmol/L Normal 3.5-4.9 [facility] Comment on above: Performed By: #### L [id number] ####[facility] ([facility])[address] [place] [address] Sodium [Moles/Vol] 137 mmol/L Low 138.0-146.0 [facility] Comment on above: Performed By: #### L [id number] ####[facility] ([facility])[address] [place] [address] PROTIME-INRon 06-26-2023 INR IN PPP BY COAGULATION ASSAY 1.29 High 0.90-1.10 [facility] Comment on above: Result Comment: ACCC P [...] CHEST 1995;108:231S-246S. Performed By: #### L [id number] ####[facility] (BEAKER)[address] [place] [address] PROTHROMBIN TIME (PT) IN PPP BY COAGULATION ASSAY 16.1 Seconds High 12.3-14.8 [facility] Comment on above: Performed By: #### L [id number] ####[facility] ([facility]AKER)[address] [place] [address] INR IN PPP BY COAGULATION ASSAY 1.37 High 0.90-1.10 [facility] Comment on above: Order Comment: Pre-o p diagnosis:Aortic valve disorder [I35.9] Result Comment: ACCC P RECOMMENDED INR FOR [...] CHEST 1995;108:231S-246S. Performed By: #### L [id number] ####[facility] ([employer])[address] [place] [address] PROTHROMBIN TIME (PT) IN PPP BY COAGULATION ASSAY 16.9 Seconds High 12.3-14.8 [facility] Comment on above: Order Comment: Pre-o p diagnosis:Aortic valve disorder [I35.9] Performed By: #### L [id number] ####[facility] ([employer])[address] [place] [address] INR IN PPP BY COAGULATION ASSAY 1.06 Normal 0.90-1.10 [facility] Comment on above: Result Comment: ACCC P [...] CHEST 1995;108:231S-246S. Performed By: #### L [id number] ####[facility] ([facility])[address] [place] [address] PROTHROMBIN TIME (PT) IN PPP BY COAGULATION ASSAY 13.8 Seconds Normal 12.3-14.8 [facility] Comment on above: Performed By: #### L [id number] ####[facility] ([facility])[address] [place] [address] TISSUE CULTUREon 06-26-2023 Bacteria identified Cx Nom (Unsp spec) No growth at 5 days Normal [facility] Comment on above: Order Comment: Pre-o p diagnosis:Aortic valve disorder [I35.9] Performed By: #### L [id number] ####[facility] ([facility])[address] [place] [address] GRAM STAIN RESULT Normal [facility] Comment on above: Order Comment: Pre-o p diagnosis:Aortic valve disorder [I35.9] Result Comment: No p olymorphonuclear leukocytes seenNo organisms seen Performed By: #### L [id number] ####[facility] ([facility])[address] [place] [address] 30on 06-25-2023 30 Normal [facility] ANESon 06-25-2023 ANES Normal [facility] APTTon 06-25-2023 ACTIVATED PARTIAL THROMBOPLASTIN TIME IN PPP BY COAGULATION ASSAY 31.3 Seconds Normal 25.0-35.0 [facility] Comment on above: Result Comment: Clin ical significance of the APTT is questionable in the presence of heparin. Performed By: #### L [id number] ####[facility] ([facility])[address] [place] [address] CBC WITH AUTO DIFFERENTIALon 06-25-2023 Basophils (Bld) [#/Vol] 0.04 10*3/uL Normal 0.00-0.20 [facility] Comment on above: Performed By: #### L [id number] ####[facility] ([facility])[address] [place] [address] Basophils/100 WBC (Bld) 0.8 % Normal 0.0-1.0 [facility] Comment on above: Performed By: #### L [id number] ####[facility] ([facility] [place] [address] Eosinophils (Bld) [#/Vol] 0.38 10*3/uL Normal 0.00-0.50 [facility] Comment on above: Performed By: #### L [id number] ####[facility] ([facility])[address] [place] [address] Eosinophils/100 WBC (Bld) 7.7 % High 0.0-6.0 [facility] Comment on above: Performed By: #### L [id number] ####[facility] ([facility])[address] [place] [address] Erythrocyte distribution width (RBC) [Ratio] 16.0 % High 11.5-15.0 [facility] Comment on above: Performed By: #### L [id number] ####[facility] ([facility])[address] [place] [address] ERYTHROCYTE MEAN CORPUSCULAR HEMOGLOBIN CONCENTRATION (G/DL) BY AUTOMATED 34.0 g/dL Normal 32.0-35.0 [facility] Comment on above: Performed By: #### L [id number] ####[facility] ([facility])[address] [place] [address] Hematocrit (Bld) [Volume fraction] 32.6 % Low 39.0-55.0 [facility] Comment on above: Performed By: #### L [id number] ####[facility] ([facility] [place] [address] Hemoglobin (Bld) [Mass/Vol] 11.1 g/dL Low 13.0-17.0 [facility] Comment on above: Performed By: #### L [id number] ####[facility] (BEAKER)[address] [place] [address] Immature granulocytes (Bld) [#/Vol] 0.02 10*3/uL Normal 0.00-0.20 [facility] Comment on above: Performed By: #### L [id number] ####[facility] ([facility]AKER)[address] [place] [address] Immature granulocytes/100 WBC (Bld) 0.4 % Normal 0.0-1.0 [facility] Comment on above: Performed By: #### L [id number] ####[facility] ([facility]ER)[address] [place] [address] Lymphocytes (Bld) [#/Vol] 0.80 10*3/uL Low 1.20-4.00 [facility] Comment on above: Performed By: #### L [id number] ####[facility] ([facility] [place] [address] Lymphocytes/100 WBC (Bld) 16.2 % Low 20.0-45.0 [facility] Comment on above: Performed By: #### L [id number] ####[facility] ([facility])[address] [place] [address] MCH (RBC) [Entitic mass] 29.8 pg Normal 27.0-33.0 [facility] Comment on above: Performed By: #### L [id number] ####[facility] ([facility] [place] [address] MCV (RBC) [Entitic vol] 87.4 fL Normal 82.0-98.0 [facility] Comment on above: Performed By: #### L [id number] ####[facility] ([facility])[address] [place] [address] Monocytes (Bld) [#/Vol] 0.42 10*3/uL Normal 0.10-1.00 [facility] Comment on above: Performed By: #### L [id number] ####[facility] ([facility])[address] [place] [address] Monocytes/100 WBC (Bld) 8.5 % Normal 5.0-12.0 [facility] Comment on above: Performed By: #### L [id number] ####[facility] ([facility])[address] [place] [address] Neutrophils (Bld) [#/Vol] 3.29 10*3/uL Normal 1.60-7.60 [facility] Comment on above: Performed By: #### L [id number] ####[facility] ([facility])[address] [place] [address] Neutrophils/100 WBC (Bld) 66.4 % Normal 40.0-72.0 [facility] Comment on above: Performed By: #### L [id number] ####[facility] ([facility])[address] [place] [address] NRBC (PER 100 WBCS) BY AUTOMATED COUNT 0.0 % Normal 0 [facility] Comment on above: Performed By: #### L [id number] ####[facility] ([facility])[address] [place] [address] PLATELETS (10*3/UL) IN BLOOD AUTOMATED COUNT 142 10*3/uL Low 150-400 [facility] Comment on above: Performed By: #### L [id number] ####[facility] ([facility])[address] [place] [address] RBC (Bld) [#/Vol] 3.73 10*6/uL Low 4.20-5.70 [facility] Comment on above: Performed By: #### L [id number] ####[facility] ([facility])[address] [place] [address] WBC (Bld) [#/Vol] 4.95 10*3/uL Normal 4.00-10.60 [facility] Comment on above: Performed By: #### L [id number] ####[facility] ([facility])[address] [place] [address] COMPREHENSIVE METABOLIC PANE Braulio 06-25-2023 Albumin [Mass/Vol] 3.9 g/dL Normal 3.5-5.7 [facility] Comment on above: Performed By: #### L [id number] ####[facility] ([facility])[address] [place] [address] ALP [Catalytic activity/Vol] 49 U/L Normal 34-104 [facility] Comment on above: Performed By: #### L [id number] ####[facility] ([facility])[address] [place] [address] ALT [Catalytic activity/Vol] 13 U/L Normal 7-52 [facility] Comment on above: Performed By: #### L [id number] ####[facility] ([facility])[address] [place] [address] Anion gap [Moles/Vol] 11 mmol/L Normal 7-20 [facility] Comment on above: Performed By: #### L [id number] ####[facility] ([facility])[address] [place] [address] AST [Catalytic activity/Vol] 12 U/L Low 13-39 [facility] Comment on above: Performed By: #### L [id number] ####[facility] ([facility])[address] [place] [address] Bilirubin [Mass/Vol] 0.8 mg/dL Normal 0.3-1.0 [facility] Comment on above: Performed By: #### L [id number] ####[facility] ([facility])[address] [place] [address] Calcium [Mass/Vol] 8.8 mg/dL Normal 8.6-10.3 [facility] Comment on above: Performed By: #### L [id number] ####[facility] ([facility])[address] [place] [address] Chloride [Moles/Vol] 102 mmol/L Normal 98-107 [facility] Comment on above: Performed By: #### L [id number] ####[facility] ([facility])[address] [place] [address] CO2 [Moles/Vol] 26 mmol/L Normal 21-31 [facility] Comment on above: Performed By: #### L [id number] ####[facility] ([facility])[address] [place] [address] Creatinine [Mass/Vol] 0.84 mg/dL Normal 0.70-1.30 [facility] Comment on above: Performed By: #### L [id number] ####[facility] ([facility])[address] [place] [address] GLOMERULAR FILTRATION RATE ML/MIN/1.73 SQ M.PREDICTED 106.2 mL/min/1.73m*2 Normal >60.0 [facility] Comment on above: Result Comment: [facility]???s estimated glomerular filtration rate (eGFR) will no [...] of individuals. Performed By: #### L [id number] ####[facility] ([facility])[address] [place] [address] Glucose [Mass/Vol] 93 mg/dL Normal 70-100 [facility] Comment on above: Performed By: #### L [id number] ####[facility] ([facility])[address] [place] [address] Potassium [Moles/Vol] 4.3 mmol/L Normal 3.5-5.1 [facility] Comment on above: Performed By: #### L [id number] ####[facility] ([facility])[address] [place] [address] Protein [Mass/Vol] 6.2 g/dL Normal 6.0-8.3 [facility] Comment on above: Performed By: #### L [id number] ####[facility] ([facility])[address] [place] [address] Sodium [Moles/Vol] 135 mmol/L Low 136-145 [facility] Comment on above: Performed By: #### L [id number] ####[facility] ([facility])[address] [place] [address] Urea nitrogen [Mass/Vol] 15 mg/dL Normal 7-25 [facility] Comment on above: Performed By: #### L [id number] ####[facility] ([facility])[address] [place] [address] UREA NITROGEN/CREATININE (MASS RATIO) IN SER/PLAS 17.9 Normal [facility] Comment on above: Performed By: #### L [id number] ####[facility] ([facility] [place] [address] MAGNESIUMon 06-25-2023 Magnesium [Mass/Vol] 1.9 mg/dL Normal 1.9-2.7 [facility] Comment on above: Performed By: #### L [id number] ####[facility] ([facility])[address] [place] [address] MRSA/MSSA DNA NASALon 2023 MRSA DNA Negative Normal Negative [facility] Comment on above: Order Comment: Testi ng [...] preclude nasal colonization. Performed By: #### L [id number] ####[facility] ([facility])[address] [place] [address] MSSA DNA Negative Normal Negative [facility] Comment on above: Order Comment: Testi ng [...] preclude nasal colonization. Performed By: #### L [id number] ####[facility] ([facility])[address] [place] [address] PROTIME-INRon 06-25-2023 INR IN PPP BY COAGULATION ASSAY 1.02 Normal 0.90-1.10 [facility] Comment on above: Result Comment: ACCC P [...] CHEST 1995;[id number]. Performed By: #### L [id number] ####[facility] ([facility])[address] [place] [address] PROTHROMBIN TIME (PT) IN PPP BY COAGULATION ASSAY 13.4 Seconds Normal 12.3-14.8 [facility] Comment on above: Performed By: #### L [id number] ####[facility] ([facility])[address] [place] [address] TYPE AND SCREENon 06-25-2023 AB SCREEN Negative Normal [facility] Comment on above: Performed By: #### L [id number] ####[facility], ABO group Nom (Bld) A Normal [facility] Comment on above: Performed By: #### L [id number] ####[facility], RH TYPE IN BLOOD Negative Normal [facility] Comment on above: Performed By: #### L [id number] ####[facility], URINALYSISon 06-25-2023 BILIRUBIN, TOTAL PRESENCE IN URINE Negative Normal Negative [facility] Comment on above: Performed By: #### L [id number] ####[facility] ([facility])[address] [place] [address] Clarity (U) Clear Normal Clear [facility] Comment on above: Performed By: #### L [id number] ####[facility] ([facility])[address] [place] [address] Color (U) Kylie Abnormal Yellow [facility] Comment on above: Performed By: #### L [id number] ####[facility] ([facility])[address] [place] [address] Glucose (U) [Mass/Vol] Negative Normal Negative [facility] Comment on above: Performed By: #### L [id number] ####[facility] ([facility])[address] [place] [address] HEMOGLOBIN PRESENCE IN URINE Negative Normal Negative [facility] Comment on above: Performed By: #### L [id number] ####[facility] ([facility])[address] [place] [address] Ketones Ql (U) Negative Normal Negative [facility] Comment on above: Performed By: #### L [id number] ####[facility] ([facility])[address] [place] [address] LEUKOCYTE ESTERASE PRESENCE IN URINE BY TEST STRIP Negative Normal Negative [facility] Comment on above: Performed By: #### L [id number] ####[facility] ([facility])[address] [place] [address] NITRITE PRESENCE IN URINE Negative Normal Negative [facility] Comment on above: Performed By: #### L [id number] ####[facility] ([facility])[address] [place] [address] pH (U) 5.0 [pH] Normal 5.0-8.0 [facility] Comment on above: Performed By: #### L [id number] ####[facility] ([facility])[address] [place] [address] Protein (U) [Mass/Vol] 100 mg/dL Abnormal Negative [facility] Comment on above: Performed By: #### L [id number] ####[facility] ([facility])[address] [place] [address] Specific gravity (U) [Rel density] 1.033 High 1.015-1.020 [facility] Comment on above: Performed By: #### L [id number] ####[facility] ([facility])[address] [place] [address] UROBILINOGEN (EU/DL) IN URINE 2.0 EU/dL Abnormal Negative [facility] Comment on above: Performed By: #### L [id number] ####[facility] ([facility])[address] [place] [address] URINALYSIS MICROSCOPICon CALCIUM OXALATE CRYSTALS (#/HPF) IN URINE Occasional Abnormal None Seen [facility] Comment on above: Performed By: #### L [id number] ####[facility] ([facility])[address] [place] [address] CASTS IN URINE Normal [facility] Comment on above: Performed By: #### L [id number] ####[facility] ([facility])[address] [place] [address] CRYSTALS IN URINE Present Abnormal None Seen [facility] Comment on above: Performed By: #### L [id number] ####[facility] ([facility])[address] [place] [address] MUCUS (#/HPF) IN URINE SEDIMENT Moderate Abnormal None Seen, Occasional, Few [facility] Comment on above: Performed By: #### L [id number] ####[facility] ([facility])[address] [place] [address] RBC (#/HPF) IN URINE SEDIMENT 3-5 Abnormal None Seen [facility] Comment on above: Performed By: #### L [id number] ####[facility] ([facility])[address] [place] [address] SQUAMOUS EPITHELIAL CELLS (#/HPF) IN URINE SEDIMENT Few Abnormal None Seen, Occasional [facility] Comment on above: Performed By: #### L [id number] ####[facility] ([facility])[address] [place] [address] WBC (LEUKOCYTE) (#/HPF) IN URINE SEDIMENT 0-2 Abnormal None Seen [facility] Comment on above: Performed By: #### L [id number] ####[facility] ([facility])[address] [place] [address] 30on 06-24-2023 30 Normal [facility] 30 Normal [facility] 30 Normal [facility] ANESon 06-24-2023 ANES Normal [facility] CBC WITH AUTO DIFFERENTIALon 06-24-2023 Basophils (Bld) [#/Vol] 0.03 10*3/uL Normal 0.00-0.20 [facility] Comment on above: Performed By: #### L [id number] ####[facility] ([facility])[address] [place] [address] Basophils/100 WBC (Bld) 0.4 % Normal 0.0-1.0 [facility] Comment on above: Performed By: #### L [id number] ####[facility] ([facility])[address] [place] [address] Eosinophils (Bld) [#/Vol] 0.57 10*3/uL High 0.00-0.50 [facility] Comment on above: Performed By: #### L [id number] ####[facility] ([facility])[address] [place] [address] Eosinophils/100 WBC (Bld) 7.7 % High 0.0-6.0 [facility] Comment on above: Performed By: #### L [id number] ####[facility] ([facility])[address] [place] [address] Erythrocyte distribution width (RBC) [Ratio] 16.3 % High 11.5-15.0 [facility] Comment on above: Performed By: #### L [id number] ####[facility] ([facility])[address] [place] [address] ERYTHROCYTE MEAN CORPUSCULAR HEMOGLOBIN CONCENTRATION (G/DL) BY AUTOMATED 33.1 g/dL Normal 32.0-35.0 [facility] Comment on above: Performed By: #### L [id number] ####[facility] ([facility])[address] [place] [address] Hematocrit (Bld) [Volume fraction] 35.3 % Low 39.0-55.0 [facility] Comment on above: Performed By: #### L [id number] ####[facility] ([facility])[address] [place] [address] Hemoglobin (Bld) [Mass/Vol] 11.7 g/dL Low 13.0-17.0 [facility] Comment on above: Performed By: #### L [id number] ####[facility] ([facility])[address] [place] [address] Immature granulocytes (Bld) [#/Vol] 0.03 10*3/uL Normal 0.00-0.20 [facility] Comment on above: Performed By: #### L [id number] ####[facility] ([facility])[address] [place] [address] Immature granulocytes/100 WBC (Bld) 0.4 % Normal 0.0-1.0 [facility] Comment on above: Performed By: #### L [id number] ####[facility] ([facility])[address] [place] [address] Lymphocytes (Bld) [#/Vol] 1.05 10*3/uL Low 1.20-4.00 [facility] Comment on above: Performed By: #### L [id number] ####[facility] ([facility])[address] [place] [address] Lymphocytes/100 WBC (Bld) 14.2 % Low 20.0-45.0 [facility] Comment on above: Performed By: #### L [id number] ####[facility] ([facility])[address] [place] [address] MCH (RBC) [Entitic mass] 29.3 pg Normal 27.0-33.0 [facility] Comment on above: Performed By: #### L [id number] ####[facility] ([facility])[address] [place] [address] MCV (RBC) [Entitic vol] 88.5 fL Normal 82.0-98.0 [facility] Comment on above: Performed By: #### L [id number] ####[facility] ([facility])[address] [place] [address] Monocytes (Bld) [#/Vol] 0.50 10*3/uL Normal 0.10-1.00 [facility] Comment on above: Performed By: #### L [id number] ####[facility] ([facility])[address] [place] [address] Monocytes/100 WBC (Bld) 6.8 % Normal 5.0-12.0 [facility] Comment on above: Performed By: #### L [id number] ####[facility] ([facility])[address] [place] [address] Neutrophils (Bld) [#/Vol] 5.20 10*3/uL Normal 1.60-7.60 [facility] Comment on above: Performed By: #### L [id number] ####[facility] ([facility])[address] [place] [address] Neutrophils/100 WBC (Bld) 70.5 % Normal 40.0-72.0 [facility] Comment on above: Performed By: #### L [id number] ####[facility] ([facility])[address] [place] [address] NRBC (PER 100 WBCS) BY AUTOMATED COUNT 0.0 % Normal 0 [facility] Comment on above: Performed By: #### L [id number] ####[facility] ([facility])[address] [place] [address] PLATELETS (10*3/UL) IN BLOOD AUTOMATED COUNT 141 10*3/uL Low 150-400 [facility] Comment on above: Performed By: #### L [id number] ####[facility] ([facility])[address] [place] [address] RBC (Bld) [#/Vol] 3.99 10*6/uL Low 4.20-5.70 [facility] Comment on above: Performed By: #### L [id number] ####[facility] ([facility])[address] [place] [address] WBC (Bld) [#/Vol] 7.38 10*3/uL Normal 4.00-10.60 [facility] Comment on above: Performed By: #### L [id number] ####[facility] ([facility])[address] [place] [address] COMPREHENSIVE METABOLIC PANE Braulio 06-24-2023 Albumin [Mass/Vol] 4.1 g/dL Normal 3.5-5.7 [facility] Comment on above: Performed By: #### L [id number] ####[facility] ([facility])[address] [place] [address] ALP [Catalytic activity/Vol] 53 U/L Normal 34-104 [facility] Comment on above: Performed By: #### L [id number] ####[facility] ([facility])[address] [place] [address] ALT [Catalytic activity/Vol] 12 U/L Normal 7-52 [facility] Comment on above: Performed By: #### L [id number] ####[facility] ([facility])[address] [place] [address] Anion gap [Moles/Vol] 12 mmol/L Normal 7-20 [facility] Comment on above: Performed By: #### L [id number] ####[facility] ([facility])[address] [place] [address] AST [Catalytic activity/Vol] 11 U/L Low 13-39 [facility] Comment on above: Performed By: #### L [id number] ####[facility] ([facility])[address] [place] [address] Bilirubin [Mass/Vol] 0.9 mg/dL Normal 0.3-1.0 [facility] Comment on above: Performed By: #### L [id number] ####[facility] ([facility])[address] [place] [address] Calcium [Mass/Vol] 9.0 mg/dL Normal 8.6-10.3 [facility] Comment on above: Performed By: #### L [id number] ####[facility] ([facility])[address] [place] [address] Chloride [Moles/Vol] 100 mmol/L Normal 98-107 [facility] Comment on above: Performed By: #### L [id number] ####[facility] ([facility])[address] [place] [address] CO2 [Moles/Vol] 26 mmol/L Normal 21-31 [facility] Comment on above: Performed By: #### L [id number] ####[facility] ([facility])[address] [place] [address] Creatinine [Mass/Vol] 0.84 mg/dL Normal 0.70-1.30 [facility] Comment on above: Performed By: #### L [id number] ####[facility] ([facility])[address] [place] [address] GLOMERULAR FILTRATION RATE ML/MIN/1.73 SQ M.PREDICTED 106.2 mL/min/1.73m*2 Normal >60.0 [facility] Comment on above: Result Comment: [facility]???s estimated glomerular filtration rate (eGFR) will no [...] of individuals. Performed By: #### L [id number] ####[facility] ([facility])[address] [place] [address] Glucose [Mass/Vol] 95 mg/dL Normal 70-100 [facility] Comment on above: Performed By: #### L [id number] ####[facility] ([facility])[address] [place] [address] Potassium [Moles/Vol] 3.9 mmol/L Normal 3.5-5.1 [facility] Comment on above: Performed By: #### L [id number] ####[facility] ([facility])[address] [place] [address] Protein [Mass/Vol] 6.5 g/dL Normal 6.0-8.3 [facility] Comment on above: Performed By: #### L [id number] ####[facility] ([facility])[address] [place] [address] Sodium [Moles/Vol] 134 mmol/L Low 136-145 [facility] Comment on above: Performed By: #### L [id number] ####[facility] ([facility])[address] [place] [address] Urea nitrogen [Mass/Vol] 12 mg/dL Normal 7-25 [facility] Comment on above: Performed By: #### L [id number] ####[facility] ([facility])[address] [place] [address] UREA NITROGEN/CREATININE (MASS RATIO) IN SER/PLAS 14.3 [facility] Comment on above: Performed By: #### L [id number] ####[facility] ([employer])[address] [place] [address] Documentationon 06-24-2023 Documentation Normal [facility] HPon 06-24-2023 HP Normal [facility] MAGNESIUMon 06-24-2023 Magnesium [Mass/Vol] 1.9 mg/dL Normal 1.9-2.7 [facility] Comment on above: Performed By: #### L [id number] ####[facility] ([facility])[address] [place] [address] 30on 06-23-2023 30 Normal [facility] 30 Normal [facility] CBC WITH AUTO DIFFERENTIALon 06-23-2023 Basophils (Bld) [#/Vol] 0.04 10*3/uL Normal 0.00-0.20 [facility] Comment on above: Performed By: #### L [id number] ####[facility] ([facility])[address] [place] [address] Basophils/100 WBC (Bld) 0.5 % Normal 0.0-1.0 [facility] Comment on above: Performed By: #### L [id number] ####[facility] ([facility])[address] [place] [address] Eosinophils (Bld) [#/Vol] 0.56 10*3/uL High 0.00-0.50 [facility] Comment on above: Performed By: #### L [id number] ####[facility] ([facility])[address] [place] [address] Eosinophils/100 WBC (Bld) 7.5 % High 0.0-6.0 [facility] Comment on above: Performed By: #### L [id number] ####[facility] ([facility])[address] [place] [address] Erythrocyte distribution width (RBC) [Ratio] 16.7 % High 11.5-15.0 [facility] Comment on above: Performed By: #### L [id number] ####[facility] ([facility])[address] [place] [address] ERYTHROCYTE MEAN CORPUSCULAR HEMOGLOBIN CONCENTRATION (G/DL) BY AUTOMATED 33.2 g/dL Normal 32.0-35.0 [facility] Comment on above: Performed By: #### L [id number] ####[facility] ([facility] [place] [address] Hematocrit (Bld) [Volume fraction] 34.9 % Low 39.0-55.0 [facility] Comment on above: Performed By: #### L [id number] ####[facility] ([facility])[address] [place] [address] Hemoglobin (Bld) [Mass/Vol] 11.6 g/dL Low 13.0-17.0 [facility] Comment on above: Performed By: #### L [id number] ####[facility] ([facility])[address] [place] [address] Immature granulocytes (Bld) [#/Vol] 0.03 10*3/uL Normal 0.00-0.20 [facility] Comment on above: Performed By: #### L [id number] ####[facility] ([facility])[address] [place] [address] Immature granulocytes/100 WBC (Bld) 0.4 % Normal 0.0-1.0 [facility] Comment on above: Performed By: #### L [id number] ####[facility] ([facility])[address] [place] [address] Lymphocytes (Bld) [#/Vol] 1.08 10*3/uL Low 1.20-4.00 [facility] Comment on above: Performed By: #### L [id number] ####[facility] ([facility])[address] [place] [address] Lymphocytes/100 WBC (Bld) 14.5 % Low 20.0-45.0 [facility] Comment on above: Performed By: #### L [id number] ####[facility] ([facility])[address] [place] [address] MCH (RBC) [Entitic mass] 29.6 pg Normal 27.0-33.0 [facility] Comment on above: Performed By: #### L [id number] ####[facility] ([facility]AKER)[address] [place] [address] MCV (RBC) [Entitic vol] 89.0 fL Normal 82.0-98.0 [facility] Comment on above: Performed By: #### L [id number] ####[facility] ([facility]AKER)[address] [place] [address] Monocytes (Bld) [#/Vol] 0.50 10*3/uL Normal 0.10-1.00 [facility] Comment on above: Performed By: #### L [id number] ####[facility] ([facility])[address] [place] [address] Monocytes/100 WBC (Bld) 6.7 % Normal 5.0-12.0 [facility] Comment on above: Performed By: #### L [id number] ####[facility] ([facility])[address] [place] [address] Neutrophils (Bld) [#/Vol] 5.24 10*3/uL Normal 1.60-7.60 [facility] Comment on above: Performed By: #### L [id number] ####[facility] ([facility])[address] [place] [address] Neutrophils/100 WBC (Bld) 70.4 % Normal 40.0-72.0 [facility] Comment on above: Performed By: #### L [id number] ####[facility] ([facility] [place] [address] NRBC (PER 100 WBCS) BY AUTOMATED COUNT 0.0 % Normal 0 [facility] Comment on above: Performed By: #### L [id number] ####[facility] [place] [address] PLATELETS (10*3/UL) IN BLOOD AUTOMATED COUNT 120 10*3/uL Low 150-400 [facility] Comment on above: Performed By: #### L [id number] ####[facility] ([facility] [place] [address] RBC (Bld) [#/Vol] 3.92 10*6/uL Low 4.20-5.70 [facility] Comment on above: Performed By: #### L [id number] ####[facility] ([facility])[address] [place] [address] WBC (Bld) [#/Vol] 7.45 10*3/uL Normal 4.00-10.60 [facility] Comment on above: Performed By: #### L [id number] ####[facility] ([facility])[address] [place] [address] COMPREHENSIVE METABOLIC PANE Braulio 06-23-2023 Albumin [Mass/Vol] 4.1 g/dL Normal 3.5-5.7 [facility] Comment on above: Performed By: #### L [id number] ####[facility] ([facility])[address] [place] [address] ALP [Catalytic activity/Vol] 52 U/L Normal 34-104 [facility] Comment on above: Performed By: #### L [id number] ####DR. [facility] ([facility])[address] [place] [address] ALT [Catalytic activity/Vol] 12 U/L Normal 7-52 [facility] Comment on above: Performed By: #### L [id number] ####[facility] ([facility])[address] [place] [address] Anion gap [Moles/Vol] 9 mmol/L Normal 7-20 [facility] Comment on above: Performed By: #### L [id number] ####[facility] ([facility])[address] [place] [address] AST [Catalytic activity/Vol] 9 U/L Low 13-39 [facility] Comment on above: Performed By: #### L [id number] ####[facility] ([facility])[address] [place] [address] Bilirubin [Mass/Vol] 1.0 mg/dL Normal 0.3-1.0 [facility] Comment on above: Performed By: #### L [id number] ####[facility] ([facility])[address] [place] [address] Calcium [Mass/Vol] 8.7 mg/dL Normal 8.6-10.3 [facility] Comment on above: Performed By: #### L [id number] ####[facility] ([facility])[address] [place] [address] Chloride [Moles/Vol] 101 mmol/L Normal 98-107 [facility] Comment on above: Performed By: #### L [id number] ####[facility] ([facility])[address] [place] [address] CO2 [Moles/Vol] 27 mmol/L Normal 21-31 [facility] Comment on above: Performed By: #### L [id number] ####[facility] ([facility])[address] [place] [address] Creatinine [Mass/Vol] 0.77 mg/dL Normal 0.70-1.30 [facility] Comment on above: Performed By: #### L [id number] ####[facility] ([facility])[address] [place] [address] GLOMERULAR FILTRATION RATE ML/MIN/1.73 SQ M.PREDICTED 109.1 mL/min/1.73m*2 Normal >60.0 [facility] Comment on above: Result Comment: The [facility]???s estimated glomerular filtration rate (eGFR) will no [...] of individuals. Performed By: #### L [id number] ####[facility] ([facility])[address] [place] [address] Glucose [Mass/Vol] 106 mg/dL High 70-100 [facility] Comment on above: Performed By: #### L [id number] ####[facility] ([facility])[address] [place] [address] Potassium [Moles/Vol] 4.1 mmol/L Normal 3.5-5.1 [facility] Comment on above: Performed By: #### L [id number] ####[facility] ([facility])[address] [place] [address] Protein [Mass/Vol] 6.2 g/dL Normal 6.0-8.3 [facility] Comment on above: Performed By: #### L [id number] ####[facility] ([facility])[address] [place] [address] Sodium [Moles/Vol] 133 mmol/L Low 136-145 [facility] Comment on above: Performed By: #### L [id number] ####[facility] ([facility])[address] [place] [address] Urea nitrogen [Mass/Vol] 13 mg/dL Normal 7-25 [facility] Comment on above: Performed By: #### L [id number] ####[facility] ([facility])[address] [place] [address] UREA NITROGEN/CREATININE (MASS RATIO) IN SER/PLAS 16.9 Normal [facility] Comment on above: Performed By: #### L [id number] ####[facility] ([facility])[address] [place] [address] CONSULTon 06-23-2023 CONSULT Normal [facility] 30on 06-22-2023 30 Normal [facility] 30 Normal [facility] APTTon 06-22-2023 ACTIVATED PARTIAL THROMBOPLASTIN TIME IN PPP BY COAGULATION ASSAY 31.2 Seconds Normal 25.0-35.0 [facility] Comment on above: Result Comment: Clin ical significance of the APTT is questionable in the presence of heparin. Performed By: #### L [id number] ####[facility] ([facility])[address] [place] [address] CBC WITH AUTO DIFFERENTIALon 06-22-2023 Basophils (Bld) [#/Vol] 0.03 10*3/uL Normal 0.00-0.20 [facility] Comment on above: Performed By: #### L [id number] ####[facility] ([facility])[address] [place] [address] Basophils/100 WBC (Bld) 0.4 % Normal 0.0-1.0 [facility] Comment on above: Performed By: #### L [id number] ####[facility] ([facility])[address] [place] [address] Eosinophils (Bld) [#/Vol] 0.39 10*3/uL Normal 0.00-0.50 [facility] Comment on above: Performed By: #### L [id number] ####[facility] ([facility])[address] [place] [address] Eosinophils/100 WBC (Bld) 5.0 % Normal 0.0-6.0 [facility] Comment on above: Performed By: #### L [id number] ####[facility] ([facility])[address] [place] [address] Erythrocyte distribution width (RBC) [Ratio] 16.3 % High 11.5-15.0 [facility] Comment on above: Performed By: #### L [id number] ####[facility] ([facility])[address] [place] [address] ERYTHROCYTE MEAN CORPUSCULAR HEMOGLOBIN CONCENTRATION (G/DL) BY AUTOMATED 33.1 g/dL Normal 32.0-35.0 [facility] Comment on above: Performed By: #### L [id number] ####[facility] ([facility])[address] [place] [address] Hematocrit (Bld) [Volume fraction] 35.6 % Low 39.0-55.0 [facility] Comment on above: Performed By: #### L [id number] ####[facility] ([facility])[address] [place] [address] Hemoglobin (Bld) [Mass/Vol] 11.8 g/dL Low 13.0-17.0 [facility] Comment on above: Performed By: #### L [id number] ####[facility] ([facility])[address] [place] [address] Immature granulocytes (Bld) [#/Vol] 0.02 10*3/uL Normal 0.00-0.20 [facility] Comment on above: Performed By: #### L [id number] ####[facility] ([facility])[address] [place] [address] Immature granulocytes/100 WBC (Bld) 0.3 % Normal 0.0-1.0 [facility] Comment on above: Performed By: #### L [id number] ####[facility] ([facility])[address] [place] [address] Lymphocytes (Bld) [#/Vol] 0.72 10*3/uL Low 1.20-4.00 [facility] Comment on above: Performed By: #### L [id number] ####[facility] ([facility])[address] [place] [address] Lymphocytes/100 WBC (Bld) 9.2 % Low 20.0-45.0 [facility] Comment on above: Performed By: #### L [id number] ####[facility] ([facility])[address] [place] [address] MCH (RBC) [Entitic mass] 29.0 pg Normal 27.0-33.0 [facility] Comment on above: Performed By: #### L [id number] ####[facility] ([facility])[address] [place] [address] MCV (RBC) [Entitic vol] 87.5 fL Normal 82.0-98.0 [facility] Comment on above: Performed By: #### L [id number] ####[facility] ([facility])[address] [place] [address] Monocytes (Bld) [#/Vol] 0.41 10*3/uL Normal 0.10-1.00 [facility] Comment on above: Performed By: #### L [id number] ####[facility] ([facility])[address] [place] [address] Monocytes/100 WBC (Bld) 5.2 % Normal 5.0-12.0 [facility] Comment on above: Performed By: #### L [id number] ####[facility] ([facility])[address] [place] [address] Neutrophils (Bld) [#/Vol] 6.24 10*3/uL Normal 1.60-7.60 [facility] Comment on above: Performed By: #### L [id number] ####[facility] ([facility])[address] [place], [place] [address] Neutrophils/100 WBC (Bld) 79.9 % High 40.0-72.0 [facility] Comment on above: Performed By: #### L [id number] ####[facility] ([facility])[address] [place] [address] NRBC (PER 100 WBCS) BY AUTOMATED COUNT 0.0 % Normal 0 [facility] Comment on above: Performed By: #### L [id number] ####[facility] ([facility])[address] [place], [place] [address] PLATELETS (10*3/UL) IN BLOOD AUTOMATED COUNT 110 10*3/uL Low 150-400 [facility] Comment on above: Performed By: #### L [id number] ####[facility] ([facility])[address] [place] [address] RBC (Bld) [#/Vol] 4.07 10*6/uL Low 4.20-5.70 [facility] Comment on above: Performed By: #### L [id number] ####[facility] ([facility])[address] [place] [address] WBC (Bld) [#/Vol] 7.81 10*3/uL Normal 4.00-10.60 [facility] Comment on above: Performed By: #### L [id number] ####[facility] ([facility])[address] [place] [address] CKon 06-22-2023 CREATINE KINASE (U/L) IN SER/PLAS 22.0 U/L Low 30.0-223.0 [facility] Comment on above: Performed By: #### L [id number] ####[facility] ([facility])[address] [place] [address] COMPREHENSIVE METABOLIC PANE Brauilo 06-22-2023 Albumin [Mass/Vol] 4.0 g/dL Normal 3.5-5.7 [facility] Comment on above: Performed By: #### L [id number] ####[facility] ([facility])[address] [place] [address] ALP [Catalytic activity/Vol] 52 U/L Normal 34-104 [facility] Comment on above: Performed By: #### L [id number] ####[facility] ([facility])[address] [place] [address] ALT [Catalytic activity/Vol] 13 U/L Normal 7-52 [facility] Comment on above: Performed By: #### L [id number] ####[facility] ([facility])[address] [place] [address] Anion gap [Moles/Vol] 12 mmol/L Normal 7-20 [facility] Comment on above: Performed By: #### L [id number] ####[facility] ([facility])[address] [place] [address] AST [Catalytic activity/Vol] 9 U/L Low 13-39 [facility] Comment on above: Performed By: #### L [id number] ####[facility] ([facility])[address] [place] [address] Bilirubin [Mass/Vol] 1.1 mg/dL High 0.3-1.0 [facility] Comment on above: Performed By: #### L [id number] ####[facility] ([facility])[address] [place] [address] Calcium [Mass/Vol] 9.1 mg/dL Normal 8.6-10.3 [facility] Comment on above: Performed By: #### L [id number] ####[facility] ([facility])[address] [place] [address] Chloride [Moles/Vol] 100 mmol/L Normal 98-107 [facility] Comment on above: Performed By: #### L [id number] ####[facility] ([facility])[address] [place] [address] CO2 [Moles/Vol] 26 mmol/L Normal 21-31 [facility] Comment on above: Performed By: #### L [id number] ####[facility] ([facility])[address] [place] [address] Creatinine [Mass/Vol] 0.82 mg/dL Normal 0.70-1.30 [facility] Comment on above: Performed By: #### L [id number] ####[facility] ([facility])[address] [place] [address] GLOMERULAR FILTRATION RATE ML/MIN/1.73 SQ M.PREDICTED 107.0 mL/min/1.73m*2 Normal >60.0 [facility] Comment on above: Result Comment: The [facility]???s estimated glomerular filtration rate (eGFR) will no [...] of individuals. Performed By: #### L [id number] ####[facility] ([facility])[address] [place] [address] Glucose [Mass/Vol] 161 mg/dL High 70-100 [facility] Comment on above: Performed By: #### L [id number] ####[facility] ([facility])[address] [place] [address] Potassium [Moles/Vol] 4.0 mmol/L Normal 3.5-5.1 [facility] Comment on above: Performed By: #### L [id number] ####[facility] ([facility])[address] [place] [address] Protein [Mass/Vol] 6.3 g/dL Normal 6.0-8.3 [facility] Comment on above: Performed By: #### L [id number] ####[facility] ([facility])[address] [place] [address] Sodium [Moles/Vol] 134 mmol/L Low 136-145 [facility] Comment on above: Performed By: #### L [id number] ####[facility] ([facility])[address] [place] [address] Urea nitrogen [Mass/Vol] 14 mg/dL Normal 7-25 [facility] Comment on above: Performed By: #### L [id number] ####[facility] ([facility])[address] [place] [address] UREA NITROGEN/CREATININE (MASS RATIO) IN SER/PLAS 17.1 Normal [facility] Comment on above: Performed By: #### L [id number] ####[facility] ([facility])[address] [place] [address] CONSULTon 06-22-2023 CONSULT Normal [facility] MAGNESIUMon 06-22-2023 Magnesium [Mass/Vol] 1.8 mg/dL Low 1.9-2.7 [facility] Comment on above: Performed By: #### L [id number] ####[facility] ([facility])[address] [place] [address] PROTIME-INRon 06-22-2023 INR IN PPP BY COAGULATION ASSAY 1.05 Normal 0.90-1.10 [facility] Comment on above: Result Comment: ACCC P [...] CHEST 1995;[id number]. Performed By: #### L [id number] ####[facility] ([facility])[address] [place] [address] PROTHROMBIN TIME (PT) IN PPP BY COAGULATION ASSAY 13.7 Seconds Normal 12.3-14.8 [facility] Comment on above: Performed By: #### L [id number] ####[facility] ([facility])[address] [place] [address] 30on 06-21-2023 30 Normal [facility] 30 Normal [facility] 30 The patient is Moder ately Unstable - Medium risk of patient condition declining or worsening The patient's goals for the shift include COMFORT The clinical goals for the shift include VSS Normal [facility] 30 Normal [facility] ANESon 06-21-2023 ANES Normal [facility] B-TYPE NATRIURETIC PEPTIDEon 06-21-2023 Natriuretic peptide B (Bld) [Mass/Vol] 147 pg/mL High 0-100 [facility] Comment on above: Performed By: #### L [id number] ####[facility])[address] [place] [address] BLOOD CULTUREon 06-21-2023 Bacteria identified Cx Nom (Bld) No growth at 5 days Normal [facility] Comment on above: Order Comment: From a different site than #1. Performed By: #### L [id number] ####[facility] ([facility])[address] [place] [address] C-REACTIVE PROTEINon 024 C REACTIVE PROTEIN (MG/L) IN SER/PLAS 23.3 mg/L High 0.0-7.0 [facility] Comment on above: Performed By: #### L [id number] ####[facility] ([facility])[address] [place] [address] CBC WITH AUTO DIFFERENTIALon 06-21-2023 Basophils (Bld) [#/Vol] 0.04 10*3/uL Normal 0.00-0.20 [facility] Comment on above: Performed By: #### L [id number] ####[facility] ([facility])[address] [place] [address] Basophils/100 WBC (Bld) 0.4 % Normal 0.0-1.0 [facility] Comment on above: Performed By: #### L [id number] ####[facility] ([facility])[address] [place] [address] Eosinophils (Bld) [#/Vol] 0.24 10*3/uL Normal 0.00-0.50 [facility] Comment on above: Performed By: #### L [id number] ####[facility] ([facility])[address] [place] [address] Eosinophils/100 WBC (Bld) 2.7 % Normal 0.0-6.0 [facility] Comment on above: Performed By: #### L [id number] ####[facility] ([facility])[address] [place] [address] Erythrocyte distribution width (RBC) [Ratio] 16.2 % High 11.5-15.0 [facility] Comment on above: Performed By: #### L [id number] ####[facility] ([facility])[address] [place] [address] ERYTHROCYTE MEAN CORPUSCULAR HEMOGLOBIN CONCENTRATION (G/DL) BY AUTOMATED 33.1 g/dL Normal 32.0-35.0 [facility] Comment on above: Performed By: #### L [id number] ####[facility] ([facility])[address] [place] [address] Hematocrit (Bld) [Volume fraction] 35.6 % Low 39.0-55.0 [facility] Comment on above: Performed By: #### L [id number] ####[facility] ([facility])[address] [place] [address] Hemoglobin (Bld) [Mass/Vol] 11.8 g/dL Low 13.0-17.0 [facility] Comment on above: Performed By: #### L [id number] ####[facility] ([facility])[address] [place] [address] Immature granulocytes (Bld) [#/Vol] 0.03 10*3/uL Normal 0.00-0.20 [facility] Comment on above: Performed By: #### L [id number] ####[facility] ([facility])[address] [place] [address] Immature granulocytes/100 WBC (Bld) 0.3 % Normal 0.0-1.0 [facility] Comment on above: Performed By: #### L [id number] ####[facility] ([facility])[address] [place] [address] Lymphocytes (Bld) [#/Vol] 1.23 10*3/uL Normal 1.20-4.00 [facility] Comment on above: Performed By: #### L [id number] ####[facility] ([facility])[address] [place] [address] Lymphocytes/100 WBC (Bld) 13.7 % Low 20.0-45.0 [facility] Comment on above: Performed By: #### L [id number] ####[facility] ([facility])[address] [place] [address] MCH (RBC) [Entitic mass] 29.4 pg Normal 27.0-33.0 [facility] Comment on above: Performed By: #### L [id number] ####[facility] ([facility])[address] [place] [address] MCV (RBC) [Entitic vol] 88.6 fL Normal 82.0-98.0 [facility] Comment on above: Performed By: #### L [id number] ####[facility] ([facility])[address] [place] [address] Monocytes (Bld) [#/Vol] 0.52 10*3/uL Normal 0.10-1.00 [facility] Comment on above: Performed By: #### L [id number] ####[facility] ([facility])[address] [place] [address] Monocytes/100 WBC (Bld) 5.8 % Normal 5.0-12.0 [facility] Comment on above: Performed By: #### L [id number] ####[facility] ([facility])[address] [place] [address] Neutrophils (Bld) [#/Vol] 6.92 10*3/uL Normal 1.60-7.60 [facility] Comment on above: Performed By: #### L [id number] ####[facility] ([facility])[address] [place] [address] Neutrophils/100 WBC (Bld) 77.1 % High 40.0-72.0 [facility] Comment on above: Performed By: #### L [id number] ####[facility] ([facility])[address] [place] [address] NRBC (PER 100 WBCS) BY AUTOMATED COUNT 0.0 % Normal 0 [facility] Comment on above: Performed By: #### L [id number] ####[facility] ([facility])[address] [place] [address] PLATELETS (10*3/UL) IN BLOOD AUTOMATED COUNT 109 10*3/uL Low 150-400 [facility] Comment on above: Performed By: #### L [id number] ####[facility] ([facility])[address] [place] [address] RBC (Bld) [#/Vol] 4.02 10*6/uL Low 4.20-5.70 [facility] Comment on above: Performed By: #### L [id number] ####[facility] ([facility])[address] [place] [address] WBC (Bld) [#/Vol] 8.98 10*3/uL Normal 4.00-10.60 [facility] Comment on above: Performed By: #### L [id number] ####[facility] ([facility])[address] [place] [address] COMPREHENSIVE METABOLIC PANE Braulio 06-21-2023 Albumin [Mass/Vol] 4.0 g/dL Normal 3.5-5.7 [facility] Comment on above: Performed By: #### L [id number] ####[facility] ([facility])[address] [place] [address] ALP [Catalytic activity/Vol] 47 U/L Normal 34-104 [facility] Comment on above: Performed By: #### L [id number] ####[facility] ([facility])[address] [place] [address] ALT [Catalytic activity/Vol] 14 U/L Normal 7-52 [facility] Comment on above: Performed By: #### L [id number] ####[facility] ([facility])[address] [place] [address] Anion gap [Moles/Vol] 11 mmol/L Normal 7-20 [facility] Comment on above: Performed By: #### L [id number] ####[facility] ([facility])[address] [place] [address] AST [Catalytic activity/Vol] 11 U/L Low 13-39 [facility] Comment on above: Performed By: #### L [id number] ####[facility] ([facility])[address] [place] [address] Bilirubin [Mass/Vol] 1.1 mg/dL High 0.3-1.0 [facility] Comment on above: Performed By: #### L [id number] ####[facility] (BEAKER)[address] [place] [address] Calcium [Mass/Vol] 8.9 mg/dL Normal 8.6-10.3 [facility] Comment on above: Performed By: #### L [id number] ####[facility] (BEAKER)[address] [place] [address] Chloride [Moles/Vol] 100 mmol/L Normal 98-107 [facility] Comment on above: Performed By: #### L [id number] ####[facility] (BEAKER)[address] [place] [address] CO2 [Moles/Vol] 28 mmol/L Normal 21-31 [facility] Comment on above: Performed By: #### L [id number] ####[facility] (BEAKER)[address] [place] [address] Creatinine [Mass/Vol] 0.83 mg/dL Normal 0.70-1.30 [facility] Comment on above: Performed By: #### L [id number] ####[facility] (BEAKER)[address] [place] [address] GLOMERULAR FILTRATION RATE ML/MIN/1.73 SQ M.PREDICTED 106.6 mL/min/1.73m*2 Normal >60.0 [facility] Comment on above: Result Comment: [facility]???s estimated glomerular filtration rate (eGFR) will no [...] of individuals. Performed By: #### L [id number] ####[facility] ([facility])[address] [place] [address] Glucose [Mass/Vol] 101 mg/dL High 70-100 [facility] Comment on above: Performed By: #### L [id number] ####[facility] ([facility])[address] [place] [address] Potassium [Moles/Vol] 4.2 mmol/L Normal 3.5-5.1 [facility] Comment on above: Performed By: #### L [id number] ####[facility] ([facility])[address] [place] [address] Protein [Mass/Vol] 6.1 g/dL Normal 6.0-8.3 [facility] Comment on above: Performed By: #### L [id number] ####[facility] ([facility])[address] [place] [address] Sodium [Moles/Vol] 135 mmol/L Low 136-145 [facility] Comment on above: Performed By: #### L [id number] ####[facility] ([facility])[address] [place] [address] Urea nitrogen [Mass/Vol] 14 mg/dL Normal 7-25 [facility] Comment on above: Performed By: #### L [id number] ####[facility] ([facility])[address] [place] [address] UREA NITROGEN/CREATININE (MASS RATIO) IN SER/PLAS 16.9 Normal [facility] Comment on above: Performed By: #### L [id number] ####[facility] ([facility])[address] [place] [address] CONSULTon 06-21-2023 CONSULT Normal [facility] CONSULT Normal [facility] CONSULT Normal [facility] CT ABDOMEN PELVIS W IV CONTR Kyle 06-21-2023 CT ABDOMEN PELVIS W IV CONTRAST Invalid Interpretation Code [facility] CT CHEST W IV CONTRASTon CT CHEST W IV CONTRAST Invalid Interpretation Code [facility] CT HEAD WO IV CONTRASTon CT HEAD WO IV CONTRAST Invalid Interpretation Code [facility] CT SOFT TISSUE NECK WO IV CO NTRASTon 06-21-2023 CT SOFT TISSUE NECK WO IV CONTRAST Invalid Interpretation Code [facility] HPon 06-21-2023 HP Normal [facility] HP Normal [facility] IRON AND TIBCon 06-21-2023 IRON (UG/DL) IN SER/PLAS 54 ug/dL Normal 50-212 [facility] Comment on above: Performed By: #### L [id number] ####[facility] ([employer])[address] [place] [address] IRON BINDING CAPACITY (UG/DL) IN SER/PLAS 304 ug/dL Normal 250-450 [facility] Comment on above: Performed By: #### L [id number] ####[facility] ([employer])[address] [place] [address] IRON BINDING CAPACITY.UNSATURATED (UG/DL) IN SER/PLAS 250.0 ug/dL Normal 155.0-355.0 [facility] Comment on above: Performed By: #### L [id number] ####[facility] ([employer])[address] [place] [address] IRON SATURATION (%) IN SER/PLAS 18 % Low 20-50 [facility] Comment on above: Performed By: #### L [id number] ####[facility] ([employer])[address] [place] [address] MR LUMBAR SPINE W AND WO CON TRASTon 06-21-2023 MR LUMBAR SPINE W AND WO CONTRAST Invalid Interpretation Code [facility] NURSNOTEon 06-21-2023 NURSNOTE Normal [facility] SEDIMENTATION RATEon 024 SEDIMENTATION RATE, ERYTHROCYTE 28 mm/hr High <=10 [facility] Comment on above: Performed By: #### L [id number] ####[facility] ([employer])[address] [place] [address] URINALYSIS WITH REFLEX CULTU REon 06-21-2023 BILIRUBIN, TOTAL PRESENCE IN URINE Negative Normal Negative [facility] Comment on above: Order Comment: Micro scopics not performed on urines with negative chemical reactions unless requested on original order. Performed By: #### L [id number] ####[facility] ([facility])[address] [place] [address] Clarity (U) Clear Normal Clear [facility] Comment on above: Order Comment: Micro scopics not performed on urines with negative chemical reactions unless requested on original order. Performed By: #### L [id number] ####[facility] ([facility])[address] [place] [address] Color (U) Straw Abnormal Yellow [facility] Comment on above: Order Comment: Micro scopics not performed on urines with negative chemical reactions unless requested on original order. Performed By: #### L [id number] ####[facility] ([facility])[address] [place] [address] Glucose (U) [Mass/Vol] Negative Normal Negative [facility] Comment on above: Order Comment: Micro scopics not performed on urines with negative chemical reactions unless requested on original order. Performed By: #### L [id number] ####[facility] ([facility])[address] [place] [address] HEMOGLOBIN PRESENCE IN URINE Negative Normal Negative [facility] Comment on above: Order Comment: Micro scopics not performed on urines with negative chemical reactions unless requested on original order. Performed By: #### L [id number] ####[facility] ([facility])[address] [place] [address] Ketones Ql (U) Negative Normal Negative [facility] Comment on above: Order Comment: Micro scopics not performed on urines with negative chemical reactions unless requested on original order. Performed By: #### L [id number] ####[facility] ([facility])[address] [place] [address] LEUKOCYTE ESTERASE PRESENCE IN URINE BY TEST STRIP Negative Normal Negative [facility] Comment on above: Order Comment: Micro scopics not performed on urines with negative chemical reactions unless requested on original order. Performed By: #### L [id number] ####[facility] ([facility])[address] [place] [address] NITRITE PRESENCE IN URINE Negative Normal Negative [facility] Comment on above: Order Comment: Micro scopics not performed on urines with negative chemical reactions unless requested on original order. Performed By: #### L [id number] ####[facility] ([facility])[address] [place] [address] pH (U) 8.0 [pH] Normal 5.0-8.0 [facility] Comment on above: Order Comment: Micro scopics not performed on urines with negative chemical reactions unless requested on original order. Performed By: #### L [id number] ####[facility] ([facility])[address] [place] [address] Protein (U) [Mass/Vol] Negative Normal Negative [facility] Comment on above: Order Comment: Micro scopics not performed on urines with negative chemical reactions unless requested on original order. Performed By: #### L [id number] ####[facility] ([facility])[address] [place] [address] Specific gravity (U) [Rel density] 1.011 Low 1.015-1.020 [facility] Comment on above: Order Comment: Micro scopics not performed on urines with negative chemical reactions unless requested on original order. Performed By: #### L [id number] ####[facility] ([facility])[address] [place] [address] VANCOMYCIN, RANDOMon 024 VANCOMYCIN (UG/ML) IN SER/PLAS 10.7 ug/mL Low 20.0-40.0 [facility] Comment on above: Performed By: #### L [id number] ####[facility] ([facility])[address] [place] [address] 30on 06-20-2023 30 The patient is Moder ately Stable - Low risk of patient condition declining or worsening The patient's goals for the shift include COMFORT The clinical goals for the shift include VSS Normal [facility] Consultation Noteon 06-20-19 Consultation Note [id number]#1.00TIFF Normal [facility] HPon 06-20-2023 [facility] RAD - CT Reporton 06-20-2023 RAD - CT Report [id number]#1.00TIFF Normal [facility] RAD - MISCon 06-20-2023 RAD - MISC [id number]#1.00TIFF Normal [facility] Coding Summaryon 06-17-2023 Coding Summary HTMLBase 64 InieqjzxUMc9jIq+PGhlYWQ+PE 2UUHEdZ98vnPDxfW3vP6OCZHdV QrhiEMFMBXdHXtOjkfJzDZ2ooK NjZXJu IC8+WH3pUGWpUjffkSTze4J2uX M8E25hpc8yASvhjHS2WROvIhJy ekgii5dakLx9JTjwJexgGaQa NFHarU69COX0lT75Ci38qHMqdZ Snx9xxcQb9NkRwITJdNNP4qZlo WZxgu0MpUCJgV74leOGln9K4 PZYboCxbyFXqWrWbrNY0oG4yUN oqifkcu3zhckemUck2fo78sMZs a9I9mJY4Q5KvppJ8JGFrzITc RvqkcKHNpF4xfptzc1xnpwrmFq OuHEByQEc5COm6TCRwpTltJuZq OP41QMN3JSMurqXjQ6XhFLBa aRkiYsV5a0V7Ra0QT2DBKajnH4 VNTUFSWTwvdGQ+EM78im50P9Zi LqftLpd6MZJuXGH9dUL2jK4m YVQhPRdkf8M8iBN8O2EugoFtpr 8sg0akNECrSWxtI17uuLZzy6X9 DNQeiYD3MLRzaChlCaDlnH73 Oyc+OTSkqWknb8LaIgspl2nhc2 zglLh2GfmoMJKuhgXbhDcwCGE1 n2CxTl5vMREmsYL6uCW8cW2x BbUpShR4AHeoP526FtFogVWtEd pcH73iN8EyfQT+ZXYqShx4IPZm mUupYB9uI0HbEHPiaeuxvNCp nYbtWO3qAMArmtmwULExwI5cGO IeG2u6UoHyVpJ0KJbbO5GhBCTi pbdhSa85xV3aBxZmZkO8LMsb L8EuujW3AOEnbKNnNInaIPM7R8 6yp4J6VHAlWYSxJLO2xPA3gF4x bGlnbjogbGVmdDsgdmVydGlj OFuoVKjgH532DCTceNymRrDtLC luZyBEYXRlOiAgMDMvMTgvMjAy NDwvdGQ+ZEZbAKY7rVizPPFt nESqTTmqMe6daKxfnUupBW5sBI AsknilDMWfvC5pSSImqLBgcQai IL4vJBCgonqct713JhPrGFO5 BYEyuVJzR2WjpZ9iHqOgXEHxYT SiH1KuvIAdSGlkR954QOohXoM0 ATGrmcDkZ6FrURMzaMcqFaC8 c0U5Ji7Jm0LmvbnjH5OmdZTpIj CjZzalAYe5T2LtSxvhaEY+PC90 DRUcHX51LFd8PBZ0eIfoJNjq SWNzC1UfiR7uAsGnACKhGEUwKm c+PHRhYmxlIHdpZHRoPScxMDAl JtPhuOyrGV5wAt6uUJTdTHUa uYiwlIYtFcCnr9eyGBWgSSpkTS 7imKdqB1WzaEU0SMHdd7l8Up16 G67rM8NmwKH+UTLlxAA3bNS6 nJ4aTxAgQxL5RFrvZ020WqPcbV DvKhlsq9dwl3jbbMy2AuH4XOOq izEooMojTJM3e1IzUy94V68l IHdpZHRoPSIxNSUiIHZhbGlnbj 8msC2iUa5+XKQihFS2gQF0mK6p GnUvVwH9QZwwK316AaFcoUQj Xcmce8dbz9winEk7GyYsTSGjlm XblCjxNXP0v3FoSz96I0AwqPwp c1BsMtg8kr91uSUkx4P3rWQ6 M4HjLZTqrqjxiXWnaXwtLX8aMX PedtrwBKTfoY5jNVPcL1f2FuRr HqT5NZtjJ9FckoU5XEPktHWu LWZkaXMTbP4zhbbxy6lnvrnkEo TvOHTaQWq7KDq1NXUwfPlkMnMt FLT5PiT1AIZ1vSAixL5dgJbw xxlpiQ5mVbl+YDJ9xPGxsRWQSG 1lOjwvdGQ+XZBrDQI2jWrrTUam NDPduR9mUSSpC2z5LjXmIqQ7 DJbjT4FwaaV4VVVqpRFmSICsdD OXjF7tuxzbe2zhjocaZpDsPRGz EUz2JYz3BJOmtDmiTuCfUDC0 StW4JVZ9tYWuwX2ylHbttwxgiL 9wOyc+XxttnUumIBO1IKl7B8Sm Uhk2QEGujOllIQ8itHPqWSwf Mr5lcXkftSqiGI7gRDEaoagmo7 56WkFbw1pmTHTswHGfHKsjBZE5 S91ct9K7HNAfIFMlINS7dGM4 dW9xkLzkcdmrkBHiaAmwutFkgV hmVMaaVOtcK997XEZonKtiVgIz FOn4S3WsOrh5FVBjhDmpCJ3a rBKgHFlvIc0bpUbmyXjzJG2iNQ Hhhdhzi541TeHnf4uwGNHgmACn USaqTYT8R92je1G2HYVnLXNi KUF0cZZ6zK9ozZorfwvkcYMzhG neexTptWhgIVhhCFlzE770CLPd yCntZuNkbHc5S4QpLnl0OXLl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 [facility] Lab Reports [id number]#1.00TIFF Normal [facility] Retail - Clinical Noteon Retail - Clinical Note [id number]#1.00TIFF Normal [facility] Ambulatory [...] Depression Obesity shoulder pain sleep disorder Normal [facility] XR ankle LT min 3V*on 2022 XR ankle LT min 3V* [facility] English Helper Other XR ankle LT min 3V* [facility] English Helper Other XR ankle LT min 3V* [address] [facility] English Helper Other XR ankle LT min 3V* [place] [address] [facility] English Helper Other XR ankle LT min 3V* XRay Report [place] HackSurfer Other XR ankle LT min 3V* Signed bizsol Other XR ankle LT min 3V* Patient: Nehal Baig MR#: [id number] [place] Hack[employer] Other XR ankle LT min 3V* 8 [employer] Other XR ankle LT min 3V* : 1970 Acct:[id number] bizsol Other XR ankle LT min 3V* Age/Sex: 52 / M ADM Date: 12/16/22 bizsol Other XR ankle LT min 3V* Loc: XDUCLY Room: pe: REG CLI [employer] Other XR ankle LT min 3V* Attending Dr: Kelly Yi NP [employer] Other XR ankle LT min 3V* Copies to: Kelly [facility] bizsol Other XR ankle LT min 3V* Ordering Provider: Francisco Yi NP [employer] Other XR ankle LT min 3V* Date of Service: 12/16/22 bizsol Other XR ankle LT min 3V* 09242) XR/XR ankle LT min 3V*: LEFT ANKLE PAIN [employer]izsol Other XR ankle LT min 3V* XR ankle LT min 3V* 12/16/2022 10:31 AM bizsol Other XR ankle LT min 3V* SIGNS AND SYMPTOMS: Pain and swelling of the posterior left ankle bizsol Other XR ankle LT min 3V* PROTOCOL: Frontal, lateral, and oblique radiographs of the left ankle bizsol Other XR ankle LT min 3V* COMPARISON: None bizsol Other XR ankle LT min 3V* FINDINGS: bizsol Other XR ankle LT min 3V* The ankle mortise is preserved. There is no evidence of fracture or dislocation. There is Achilles [employer]izsol Other XR ankle LT min 3V* surface calcaneal spurring. There is soft tissue swelling diffusely which is nonspecific. bizsol Other XR ankle LT min 3V* X R/XR ankle LT min 3V* bizsol Other XR ankle LT min 3V* IMPRESSION: Nort HackSurfer Other XR ankle LT min 3V* No fracture. Nor HackSurfer Other XR ankle LT min 3V* Diffuse soft tissue swelling. bizsol Other XR ankle LT min 3V* There is Achilles castano rface calcaneal spurring. bizsol Other XR ankle LT min 3V* Impression dictated by: Nehal Horner M.D.12/16/2022 10:42 AM bizsol Other XR ankle LT min 3V* Dictation Location: [place] [address] bizsol Other XR ankle LT min 3V* Transcribed By: MARLO 12/16/22 1042 bizsol Other XR ankle LT min 3V* Dictated By: Nehal Horner II, MD 12/16/22 1042 bizsol Other XR ankle LT min 3V* Signed By: bizsol Other XR ankle LT min 3V* 12/16/22 1042 No rt HackSurfer Other XR ankle LT min 3V* [facility] [place] [address] XRay Report Signed Patient: Nehal Baig MR#: [id number] 8 : 1970 Acct:[id number] Age/Sex: 52 / M ADM Date: 12/16/22 Loc: XDUCLY Room: Type: [facility] Attending Dr: Kelly MALONEY Copies to: [...] Nehal Horner M.D.12/16/2022 10:42 AM Dictation Location: [facility]--13 Transcribed By: [facility] 12/16/221041 Dictated By: Nehal Horner II, MD 12/16/221041 Signed By: 12/16/22 104 Normal [facility] -- NEHAL BAIG ([id number]) 1970 M Date Time Provider Department 05/28/22 SALOME AGUILLON [facility] During your visit today, we recorded the following information about you: Salome Aguillon APRN.GRILL CHEF 05/28/2022 11:57 AM Signed Please call patient [...] [R80.9] Order(s):PROTEIN CREATININE RATIO [SQPRATIO] Order #: [id number] FUTURE Prescriptions as of 05/29/2022 - atorvastatin [...] Encounter Status:Closed by VIVEK RICO on 05/28/22 [facility] KIDNEY/BLADDERon 05-26-19 KIDNEY/BLADDER * * *Final Report* * * DATE OF EXAM: May 26 2022 2:34PM [facility] 1055 - US KIDNEY/BLADDER / PROCEDURE [...] No evidence of renal calculus or hydronephrosis. Adjuster Piano Action: PSCB Transcribe Date/Time: May 26 2022 2:43P Dictated by : BOB RODRIGUEZ MD This examination was interpreted and the report reviewed and electronically signed by: BOB RODRIGUEZ MD on May 27 2022 5:50AM EST [id number] [facility] Office Visit ([facility] ) -- NEHAL BAIG ([id number]) 1970 M Date Time Provider Department 05/21/22 5:20 PM SALOME AGUILLON [facility] During your visit today, we recorded the following information about you: Pulse Blood pressure Weight Height 89/minute 133/67 180.5 kg 1.854 m Salome Aguillon APRN.GRILL CHEF 05/21/2022 6:45 PM Addendum This note was [...] 2020. This is a workers comp issue-through [facility]/Dr. Cowan. 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 Shoulder replacement surgery left 08/23/24. 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 ENDO/WT: -needs f/up endo wt managmeent Dr. 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 Man/Agustina-endo wt management team [phone] Will review at upcoming appointment. Protein noted in urine. Vitamin D is low at 30.7-recommend flmg-qfg-lftkyir vitamin D3 1000 units daily. Cholesterol is elevated, worsening when compared to prior-we will discuss increasing cholesterol medication. Kidney, liver, electrolytes look fine. Thyroid lab looks fine. PSA/prostate lab looks fine. A1c is stable at 5.4. Blood count looks fine. Written by Salome Aguillon APRN.GRILL CHEF on 05/21/2022 3:44 PM EST Last 2 [...] Negative Ketones, Urine Negative Trace (A) Specific [place], Ur 1.005 - 1.030 >=1.030 (H) Hemoglobin/Blood,Ur [...] (more content not included)... Normal [facility] 25(OH)D3 [facility] 2022 25-hydroxyvitamin D3 [Mass/Vol] 30.7 ng/mL Low 31.0-80.0 [facility] Comment on above: Order Comment: Speci men Type: BLOOD SPECIMEN Ordering Facility: [facility] Address: [address] [address] Result Comment: Clas sification of 25 [place] Vitamin D status: Deficiency/Insufficiency: < or = 30 ng/ml. Sufficiency/Optimal Levels: 31-80 ng/mL Toxicity: > 100 ng/mL. Test performed by chemiluminescent immunoassay. Performed By: #### 1 989-3 #### [facility] CLIA [id number] [address] [place] [address] [facility] CBC panel Auto (Bld)on 05-19 Erythrocyte distribution width (RBC) [Ratio] 12.9 % Normal 11.5-15.0 [facility] Comment on above: Order Comment: Speci men Type: URINE SPECIMEN Ordering Facility: [facility] Address: [address] [address] Performed By: #### L [id number] #### [facility] CLIA [id number] [address] [place] [address] [place] Hematocrit (Bld) [Volume fraction] 42.7 % Normal 39.0-51.0 [facility] Comment on above: Order Comment: Speci men Type: URINE SPECIMEN Ordering Facility: [facility] Address: [address] [address] Performed By: #### L [id number] #### [facility] CLIA [id number] [address] [place] [address] [place] Hemoglobin (Bld) [Mass/Vol] 14.5 g/dL Normal 13.0-17.0 [facility] Comment on above: Order Comment: Speci men Type: URINE SPECIMEN Ordering Facility: [facility] Address: [address] [place] [address] Performed By: #### L [id number] #### [facility] CLIA [id number] [address] [place] [address] [place] MCH (RBC) [Entitic mass] 29.2 pg Normal 26.0-34.0 [facility] Comment on above: Order Comment: Speci men Type: URINE SPECIMEN Ordering Facility: [facility] Address: [address] [place], [place] [address] Performed By: #### L [id number] #### [facility] CLIA [id number] [address] [place] [address] [place] MCHC (RBC) [Mass/Vol] 34.0 g/dL Normal 30.5-36.0 [facility] Comment on above: Order Comment: Speci men Type: URINE SPECIMEN [facility]ing Facility: [facility] Address: [address] [place], [place] [address] Performed By: #### L [id number] #### [facility] CLIA [id number] [address] [place] [address] [place] MCV (RBC) [Entitic vol] 85.9 fL Normal 80.0-100.0 [facility] Comment on above: Order Comment: Speci men Type: URINE SPECIMEN [facility]ing Facility: [facility] Address: [address] [place], [place] [address] Performed By: #### L [id number] #### [facility] CLIA [id number] [address] [place] [address] [place] Nucleated RBC (Bld) [#/Vol] 10*3/uL Normal <0.01 [facility] Comment on above: Order Comment: Speci men Type: URINE SPECIMEN Ordering Facility: [facility] Address: [address] [place], [place] [address] Performed By: #### L [id number] #### [facility] CLIA [id number] [address] [place] [address] [place] Platelet mean volume (Bld) [Entitic vol] 10.2 fL Normal 9.0-12.7 [facility] Comment on above: Order Comment: Speci men Type: URINE SPECIMEN [facility]ing Facility: [facility] Address: [address] [place], [place] [address] Performed By: #### L [id number] #### [facility] CLIA [id number] [address] [place] [address] [place] Platelets (Bld) [#/Vol] 189 10*3/uL Normal 150-400 [facility] Comment on above: Order Comment: Speci men Type: URINE SPECIMEN Ordering Facility: [facility] Address: [address] [place] [address] Performed By: #### L [id number] #### [facility] CLIA [id number] [address] [place] [address] [place] RBC (Bld) [#/Vol] 4.97 10*6/uL Normal 4.20-6.00 [facility] Comment on above: Order Comment: Speci men Type: URINE SPECIMEN [facility]ing Facility: [facility] Address: [address] [place] [address] Performed By: #### L [id number] #### [facility] CLIA [id number] [address] [place] [address] [place] WBC (Bld) [#/Vol] 5.26 10*3/uL Normal 3.70-11.00 [facility] Comment on above: Order Comment: Speci men Type: URINE SPECIMEN Ordering Facility: [facility] Address: [address] [address] Performed By: #### L [id number] #### [facility] CLIA [id number] [address] [place] [address] OF [facility] Comprehensive metabolic 2000 panelon 05-19-2022 Albumin [Mass/Vol] 4.4 g/dL Normal 3.9-4.9 [facility] Comment on above: Order Comment: Speci men Type: BLOOD SPECIMENOrdering Facility: [facility] Address: [address] [address] Performed By: #### 2 4323-8, 66822-9 ####[facility]IA [id number] [place] [address] [place] ALP [Catalytic activity/Vol] 83 U/L Normal 38-113 [facility] Comment on above: Order Comment: Speci men Type: BLOOD SPECIMENOrdering Facility: [facility] Address: [address] [place] [address] Performed By: #### 2 4323-8, 41145-6 ####[facility] [id number] [place] [address] [place] ALT [Catalytic activity/Vol] 45 U/L Normal 10-54 [facility] Comment on above: Order Comment: Speci men Type: BLOOD SPECIMENOrdering Facility: [facility] Address: [address] [place] [address] Performed By: #### 2 4323-8, 63062-6 ####[facility]IA [id number] [place] [address] [place] Anion gap [Moles/Vol] 10 mmol/L Normal 9-18 [facility] Comment on above: Order Comment: Speci men Type: BLOOD SPECIMENOrdering Facility: [facility] Address: [address] [place] [address] Performed By: #### 2 4323-8, 31259-8 ####[facility]IA [id number] [place] [address] [place] AST [Catalytic activity/Vol] 31 U/L Normal 14-40 [facility] Comment on above: Order Comment: Speci men Type: BLOOD SPECIMENOrdering Facility: [facility] Address: [address] [place] [address] Performed By: #### 2 4323-8, 08501-6 ####[facility] [id number] [place] [address] [place] Bilirubin [Mass/Vol] 0.6 mg/dL Normal 0.2-1.3 [facility] Comment on above: Order Comment: Speci men Type: BLOOD SPECIMENOrdering Facility: [facility] Address: [address] [address] Performed By: #### 2 4323-8, 31264-6 ####[facility] [id number] [place] [address] [place] Calcium [Mass/Vol] 9.5 mg/dL Normal 8.5-10.2 [facility] Comment on above: Order Comment: Speci men Type: BLOOD SPECIMENOrdering Facility: [facility] Address: [address] [address] Performed By: #### 2 432-8, 54204-0 ####[facility]IA [id number] [place] [address] [place] Chloride [Moles/Vol] 103 mmol/L Normal 97-105 [facility] Comment on above: Order Comment: Speci men Type: BLOOD SPECIMENOrdering Facility: [facility] Address: [address] [address] Performed By: #### 2 432-8, 13742-7 ####[facility]IA [id number] [place] [address] [place] CO2 [Moles/Vol] 26 mmol/L Normal 22-30 [facility] Comment on above: Order Comment: Speci men Type: BLOOD SPECIMENOrdering Facility: [facility] Address: [address] [address] Performed By: #### 2 4323-8, 30952-3 ####[facility]IA [id number] [place] [address] [place] Creatinine [Mass/Vol] 0.98 mg/dL Normal 0.73-1.22 [facility] Comment on above: Order Comment: Speci men Type: BLOOD SPECIMENOrdering Facility: [facility] Address: [address] [address] Performed By: #### 2 4323-8, 12436-4 ####[facility]IA [id number] [place] [address] [place] ESTIMATED GLOMERULAR FILTRATION RATE 95 mL/min/1.73m??? Normal >=60 [facility] Comment on above: Order Comment: Tessa flores Type: BLOOD SPECIMENOrdering Facility: [facility] Address: [address] [place] [address] Result Comment: Halle mated Glomerular Filtration Rate [...] actual GFR. Performed By: #### 2 4323-8, 32714-8 ####[facility] LABIA [id number] [place] [address] [place] Glucose [Mass/Vol] 203 mg/dL High 74-99 [facility] Comment on above: Order Comment: Tessa flores Type: BLOOD SPECIMENOrdering Facility: [facility] Address: [address] [place] [address] Result Comment: The [place] Diabetes Association (ADA) provides guidance for cutoff [...] Standards of Medical Care in Diabetes 2016, [place] Diabetes Association. Diabetes Care. 2016.39(Suppl 1). Performed By: #### 2 4323-8, 01674-6 ####[facility] LAB[facility]IA [id number] [place] [address] [place] Potassium [Moles/Vol] 4.6 mmol/L Normal 3.7-5.1 [facility] Comment on above: Order Comment: Speci men Type: BLOOD SPECIMENOrdering Facility: [facility] Address: [address] [address] Performed By: #### 2 4323-8, 74478-7 ####[facility]IA [id number] [place] [address] [place] Protein [Mass/Vol] 7.4 g/dL Normal 6.3-8.0 [facility] Comment on above: Order Comment: Speci men Type: BLOOD SPECIMENOrdering Facility: [facility] Address: [address] [address] Performed By: #### 2 4323-8, 85744-3 ####[facility]IA [id number] [place] [address] [place] Sodium [Moles/Vol] 139 mmol/L Normal 136-144 [facility] Comment on above: Order Comment: Speci men Type: BLOOD SPECIMENOrdering Facility: [facility] Address: [address] [address] Performed By: #### 2 4323-8, 13898-2 ####[facility]IA [id number] [place] [address] [place] Urea nitrogen [Mass/Vol] 17 mg/dL Normal 9-24 [facility] Comment on above: Order Comment: Speci men Type: BLOOD SPECIMENOrdering Facility: [facility] Address: [address] [address] Performed By: #### 2 4323-8, 14997-9 ####[facility] LABIA [id number] [place] [address] [place] HbA1c (Bld)on 05-19-2022 Average glucose Estimated from glycated hemoglobin (Bld) [Mass/Vol] 108 mg/dL Normal [facility] Comment on above: Order Comment: Speci men Type: URINE SPECIMEN [facility] Facility: [facility] Address: [address] [address] Result Comment: eAG: (Estimated average glucose) is a calculated value from HgbA1c and is outbound sales representative of the average blood glucose level in the last 2-3 month period. Performed By: #### L [id number] #### [facility] CLIA [id number] [address] [place] [address] [place] [facility] HbA1c (Bld) [Mass fraction] 5.4 % Normal 4.3-5.6 [facility] Comment on above: Order Comment: Speci men Type: URINE SPECIMEN [facility] Facility: [facility] Address: [address] [address] Result Comment: Amer [place] Diabetes Association guidelines indicate that patients with HgbA1c in the range 5.7-6.4% are at increased risk for development of diabetes, and intervention by lifestyle modification may be beneficial. HgbA1c greater or equal to 6.5% is considered diagnostic of diabetes. Performed By: #### L [id number] #### [facility] CLIA [id number] [address] [place] [address] [place] Lipid 1996 panelon 3 Cholesterol [Mass/Vol] 219 mg/dL High <200 [facility] Comment on above: Order Comment: Tessa flores Type: BLOOD SPECIMENOrdering Facility: [facility] Address: [address] [address] Result Comment: <200 mg/dL, Desirable 200-239 mg/dL, Borderline high >239 mg/dL, High Performed By: #### 2 4323-8, 48677-9 ####[facility]IA [id number] [address] STATES OF [facility] Cholesterol in HDL [Mass/Vol] 38 mg/dL Low >39 [facility] Comment on above: Order Comment: Tessa men Type: BLOOD SPECIMENOrdering Facility: [facility] Address: [address] [address] Result Comment: 40-5 9 mg/dL, Acceptable >59 mg/dL, High: Negative risk factor for coronary heart disease <40 mg/dL, Low: Positive risk factor for coronary heart disease Performed By: #### 2 4323-8, 42595-1 ####[facility] [id number] [place] [address] [place] Cholesterol in LDL [Mass/Vol] 149 mg/dL High <100 [facility] Comment on above: Order Comment: Speci men Type: BLOOD SPECIMENOrdering Facility: [facility] Address: [address] [address] Result Comment: <100 mg/dL, Optimal 100-129 mg/dL, Near optimal/above optimal 130-159 mg/dL, Borderline high 160-189 mg/dL, High >189 mg/dL, Very high Secondary prevention optimal LDL Cholesterol levels are recommended to be < 70 mg/dL Performed By: #### 2 432-8, ####[facility]IA [id number] [place] [address] [place] Cholesterol in LDL/Cholesterol in HDL [Mass ratio] 3.92 {ratio} High <2.54 [facility] Comment on above: Order Comment: Speci men Type: BLOOD SPECIMENOrdering Facility: [facility] Address: [address] [place] [address] Result Comment: Refe rence: 1. National Cholesterol Education Program ATP III Guideline At-A-Glance Quick Desk Reference: National Heart, Lung, and Blood [place]. National Institutes of Health. 2001: NIH Publication No. 01-3305. 2. An International Atherosclerosis Society position paper: global recommendations for the management of dyslipidemia: executive summary, Atherosclerosis. 2014: 232(2):410-413. Performed By: #### 2 4323-8, ####[facility]IA [id number] [place] [address] [place] Cholesterol in VLDL [Mass/Vol] 32 mg/dL High <30 [facility] Comment on above: Order Comment: Speci men Type: BLOOD SPECIMENOrdering Facility: [facility] Address: [address] [address] Performed By: #### 2 432-8, ####[facility]IA [id number] [place] [address] [place] Cholesterol non HDL [Mass/Vol] 181 mg/dL High <130 [facility] Comment on above: Order Comment: Speci men Type: BLOOD SPECIMENOrdering Facility: [facility] Address: [address] [address] Result Comment: <130 mg/dL, Optimal 130-159 mg/dL, Near optimal/above optimal 160-189 mg/dL, Borderline high 190-219 mg/dL, High >219 mg/dL, Very high Secondary prevention optimal non HDL Cholesterol levels are recommended to be <100 mg/dL Performed By: #### 2 4323-8, 18682-7 ####[facility] LABIA [id number] [place] [address] [place] Cholesterol.total/Ch olesterol in HDL [Mass ratio] 5.76 {ratio} High <5.10 [facility] Comment on above: Order Comment: Speci men Type: BLOOD SPECIMENOrdering Facility: [facility] Address: [address] [address] Performed By: #### 2 4323-8, ####[facility] LABIA [id number] [address] [place] FASTING TIME 10 hrs Normal [facility] Comment on above: Order Comment: Speci men Type: BLOOD SPECIMENOrdering Facility: [facility] Address: [address] [address] Performed By: #### 2 4323-8, ####[facility]IA [id number] [place] [address] [place] Triglyceride [Mass/Vol] 161 mg/dL High <150 [facility] Comment on above: Order Comment: Speci men Type: BLOOD SPECIMENOrdering Facility: [facility] Address: [address] [address] Result Comment: <150 mg/dL, Normal 150-199 mg/dL, Borderline high 200-499 mg/dL, High >499 mg/dL, Very high Performed By: #### 2 4323-8, 90264-4 ####[facility] LABCLIA [id number] [place] [address] [place] PSA/PROSTSPECAG SCRNon 05-19 Prostate specific Ag [Mass/Vol] 0.56 ng/mL Normal <2.60 [facility] Comment on above: Order Comment: Speci men Type: BLOOD SPECIMENOrdering Facility: [facility] Address: [address] [address] Result Comment: Tota l PSA test methodology used is the Electrochemiluminescence Immunoassay by Wilver 2sms. Total PSA values by differing methodologies cannot be interchanged. Performed By: #### P SAS1 ####[facility] LAB[facility]IA [id number] [place] [address] [place] TSH SerPl-aCncon 05-19-2022 TSH Qn 1.020 m[IU]/L Normal 0.270-4.200 [facility] Comment on above: Order Comment: Speci men Type: BLOOD SPECIMENOrdering Facility: [facility] Address: [address] [address] Performed By: #### 3 016-3 ####[facility] LABCLIA [id number] [place] [address] [place] URINALYSIS, REFLEX MICROSCOP ICon 05-19-2022 Bilirubin Ql (U) Negative Normal Negative [facility] Comment on above: Order Comment: Speci men Type: URINE SPECIMEN [facility] Facility: [facility] Address: [address] [address] Performed By: #### L [id number] #### [facility] CLIA [id number] [place] [address] [place] Clarity (Unsp spec) Clear Normal Clear [facility] Comment on above: Order Comment: Speci men Type: URINE SPECIMEN [facility] Facility: [facility] Address: [address] [place] [address] Performed By: #### L [id number] #### [facility] CLIA [id number] [address] [place] [address] [place] Color (U) Yellow Normal Yellow [facility] Comment on above: Order Comment: Speci men Type: URINE SPECIMEN [facility] Address: [address] [place] [address] Performed By: #### L [id number] #### [facility] CLIA [id number] [address] [place] [address] [place] Epithelial cells LM.HPF (Urine sed) [#/Area] Few Normal [facility] Comment on above: Order Comment: Speci men Type: URINE SPECIMEN [facility] Facility: [facility] Address: [address] [place] [address] Performed By: #### L [id number] #### [facility] CLIA [id number] [address] [place] [address] [place] Glucose Test strip (U) [Mass/Vol] Negative Normal Negative [facility] Comment on above: Order Comment: Speci men Type: URINE SPECIMEN [facility] Facility: [facility] Address: [address] [place] [address] Performed By: #### L [id number] #### [facility] CLIA [id number] [address] [place] [address] [place] Hemoglobin Ql (U) Negative Normal Negative [facility] Comment on above: Order Comment: Speci men Type: URINE SPECIMEN [facility] Facility: [facility] Address: [address] [place] [address] Performed By: #### L [id number] #### [facility] CLIA [id number] [address] [place] [address] [place] Ketones Ql (U) Trace Abnormal Negative [facility] Comment on above: Order Comment: Speci men Type: URINE SPECIMEN [facility] Facility[facility] Address: [address] [place] [address] Performed By: #### L [id number] #### [facility] CLIA [id number] [address] [place] [address] Leukocyte esterase Test strip Ql (U) Negative Normal Negative [facility] Comment on above: Order Comment: Speci men Type: URINE SPECIMEN [facility] Facility[facility] Address: [address] [place] [address] Performed By: #### L [id number] #### [facility] CLIA [id number] [address] [place] [address] [place] [facility] Nitrite Ql (U) Negative Normal Negative [facility] Comment on above: Order Comment: Speci men Type: URINE SPECIMEN [facility] Address: [address] [place] [address] Performed By: #### L [id number] #### [facility] CLIA [id number] [address] [place] [address] [place] pH (U) 5.5 [pH] Normal 5.0-8.0 [facility] Comment on above: Order Comment: Speci men Type: URINE SPECIMEN [facility] Facility: [facility] Address: [address] [place] [address] Performed By: #### L [id number] #### [facility] CLIA [id number] [address] [place] [address] STATES [facility] Protein (U) [Mass/Vol] 1+ Abnormal Negative [facility] Comment on above: Order Comment: Speci men Type: URINE SPECIMEN [facility] Facility[facility] Address: [address] [place] [address] Performed By: #### L [id number] #### [facility] CLIA [id number] [address] [place] [address] [place] RBC LM.HPF (Urine sed) [#/Area] 0-3 /HPF Normal 0-3 /HPF [facility] Comment on above: Order Comment: Speci men Type: URINE SPECIMEN [facility] Facility: [facility] Address: [address] [place] [address] Performed By: #### L [id number] #### [facility] CLIA [id number] [address] [place] [address] Specific gravity (U) [Rel density] >=1.030 High 1.005-1.030 [facility] Comment on above: Order Comment: Speci men Type: URINE SPECIMEN [facility] Facility: [facility] Address: [address] [place] [address] Performed By: #### L [id number] #### [facility] CLIA [id number] [address] [place] [address] Urobilinogen Ql (U) 0.2 EU/dL Normal 0.2-1.0 EU/dL [facility] Comment on above: Order Comment: Speci men Type: URINE SPECIMEN [facility] Facility[facility] Address: [address] [place] [address] Performed By: #### L [id number] #### [facility] CLIA [id number] [address] [place] [address] WBC LM.HPF (Urine sed) [#/Area] 0-5 /HPF Normal 0-5 /HPF [facility] Comment on above: Order Comment: Speci men Type: URINE SPECIMEN [facility] Facility[facility] Address: [address] [place] [address] Performed By: #### L [id number] #### [facility] CLIA [id number] [address] [place] [address] [place] MRI CSPINE WO CONon 04-23-19 MRI CSPINE [...] by: KINGSLEY HERRERA Date: 2022-04-23 06:50 Normal [facility] XR FOREIGN BODY EYEon 2022 XR FOREIGN BODY EYE EXAMINATION: XR FORE IGN BODY EYE HISTORY: Foreign body in eye COMPARISON: No relevant comparison available. FINDINGS: ORBITS: Negative for a metallic foreign body. OTHER: Negative. IMPRESSION: 1. No metallic foreign body within the orbits. Electronically authenticated by: JAYY GIVENS Date: 2022-04-20 13:52 Normal [facility] CNOVon 02-15-2022 CN Office Visit ([facility] ) -- NEHAL BAIG ([id number]) 1970 M Date Time Provider Department 02/15/22 2:20 PM SALOME AGUILLON [facility] During your visit today, we recorded the [...] endo wt managmeent Dr. 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 Man/Agustina-endo wt management team [phone] Has been off metformin 6 weeks + [...] statin. Ultrasound carotids previously ordered at [facility]- 11/25/2019- 0 to 29% stenosis [...] 2020. This is a workers comp issue-through [facility] n[facility]/Dr. Cowan. 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 Shoulder replacement surgery left 08/23/24. 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 HM: -declines flu vaccine [...] looks fine. Vitamin D is low-please begin txht-mvq-cjwvpwi vitamin D3 2000 units daily. Urine asymptomatic. Component Latest Ref Rng AND Units 02/10/2022 Color Yellow Yellow Clarity Clear Clear Glucose, Urine Negative Negative Bilirubin, Urine Negative Negative Ketones, Urine Negative Negative Specific [place], Ur 1.005 - 1.030 1.037 (H) Hemoglobin/Blood,Ur [...] (more content not included)... Normal [facility] 25(OH)D3 [facility] 25-hydroxyvitamin D3 [Mass/Vol] 28.2 ng/mL Low 31.0-80.0 [facility] Comment on above: Order Comment: Speci men Type: BLOOD SPECIMENOrdering Facility: [facility] Address: [address] [place], [place] [address] Result Comment: Clas sification of 25 [place] Vitamin D status: Deficiency/Insufficiency: < or = 30 ng/ml. Sufficiency/Optimal Levels: 31-80 ng/mL Toxicity: > 100 ng/mL. Test performed by chemiluminescent immunoassay. Performed By: #### 1 989-3 ####[facility] LABCLIA [id number] [address] [place] CBC panel Auto (Bld)on 02-10 Erythrocyte distribution width (RBC) [Ratio] 13.2 % Normal 11.5-15.0 [facility] Comment on above: Order Comment: Speci men Type: BLOOD SPECIMENOrdering Facility: [facility] Address: [address] [place] [address] Performed By: #### 5 8410-2 ####[facility]CLIA [id number] [address] [place] Hematocrit (Bld) [Volume fraction] 41.9 % Normal 39.0-51.0 [facility] Comment on above: Order Comment: Speci men Type: BLOOD SPECIMENOrdering Facility: [facility] Address: [address] [place] [address] Performed By: #### 5 8410-2 ####[facility] LABIA [id number] [address] [place] Hemoglobin (Bld) [Mass/Vol] 13.9 g/dL Normal 13.0-17.0 [facility] Comment on above: Order Comment: Speci men Type: BLOOD SPECIMENOrdering Facility: [facility] Address: [address] [place], [place] [address] Performed By: #### 5 8410-2 ####[facility] LABIA [id number] [place] [address] [place] MCH (RBC) [Entitic mass] 29.0 pg Normal 26.0-34.0 [facility] Comment on above: Order Comment: Speci men Type: BLOOD SPECIMENOrdering Facility: [facility] Address: [address] [place], [place] [address] Performed By: #### 5 8410-2 ####[facility] LABIA [id number] [address] [place] MCHC (RBC) [Mass/Vol] 33.2 g/dL Normal 30.5-36.0 [facility] Comment on above: Order Comment: Speci men Type: BLOOD SPECIMENOrdering Facility: [facility] Address: [address] [place] [address] Performed By: #### 5 8410-2 ####[facility] LABCLIA [id number] [address] STATES [facility] MCV (RBC) [Entitic vol] 87.5 fL Normal 80.0-100.0 [facility] Comment on above: Order Comment: Speci men Type: BLOOD SPECIMENOrdering Facility: [facility] Address: [address] Performed By: #### 5 8410-2 ####[facility] LABIA [id number] [place] [address] [place] Nucleated RBC (Bld) [#/Vol] 10*3/uL Normal <0.01 [facility] Comment on above: Order Comment: Speci men Type: BLOOD SPECIMENOrdering Facility: [facility] Address: [address] Performed By: #### 5 8410-2 ####[facility] LABIA [id number] [place] [address] [place] Platelet mean volume (Bld) [Entitic vol] 10.6 fL Normal 9.0-12.7 [facility] Comment on above: Order Comment: Speci men Type: BLOOD SPECIMENOrdering Facility: [facility] Address: [address] [place] [address] Performed By: #### 5 8410-2 ####[facility] LABCLIA [id number] [place] [address] [place] Platelets (Bld) [#/Vol] 198 10*3/uL Normal 150-400 [facility] Comment on above: Order Comment: Speci men Type: BLOOD SPECIMENOrdering Facility: [facility] Address: [address] Performed By: #### 5 8410-2 ####[facility]CLIA [id number] [address] [place] RBC (Bld) [#/Vol] 4.79 10*6/uL Normal 4.20-6.00 [facility] Comment on above: Order Comment: Speci men Type: BLOOD SPECIMENOrdering Facility: [facility] Address: [address] [place] [address] Performed By: #### 5 8410-2 ####[facility]CLIA [id number] [address] WBC (Bld) [#/Vol] 6.46 10*3/uL Normal 3.70-11.00 [facility] Comment on above: Order Comment: Speci men Type: BLOOD SPECIMENOrdering Facility: [facility] Address: [address] [place] [address] Performed By: #### 5 8410-2 ####[facility] LABCLIA [id number] [address] OF [facility] Comprehensive metabolic 2000 panelon 02-10-2022 Albumin [Mass/Vol] 4.5 g/dL Normal 3.9-4.9 [facility] Comment on above: Order Comment: Speci men Type: BLOOD SPECIMENOrdering Facility: [facility] Address: [address] [place] [address] Performed By: #### 3 016-3, 37546-0 ####[facility] LABCLIA [id number] [place] [address] [place]#### 70643-3 ####[facility] LABCLIA [id number] [place] [address] [place] [facility]WVUMED[facility] [place] LABORATORYCLIA [id number] [place] [address] [place] ALP [Catalytic activity/Vol] 85 U/L Normal 38-113 [facility] Comment on above: Order Comment: Speci men Type: BLOOD SPECIMENOrdering Facility: [facility] Address: [address] [place] [id number] Performed By: #### 3 016-3, 73651-7 ####[facility] LABCLIA [id number] [place] [address] [place]#### 40501-7 ####[facility]CLIA [id number] [address] [place] LABORATORYCLIA [id number] [place] [address] [place] ALT [Catalytic activity/Vol] 34 U/L Normal 10-54 [facility] Comment on above: Order Comment: Speci men Type: BLOOD SPECIMENOrdering Facility: [facility] Address: [address] [place] [address] Performed By: #### 3 016-3, 14848-1 ####[facility] LABCLIA [id number] [place] [address] [place]#### 76746-0 ####[facility] LABCLIA [id number] [address] STATES [facility] LABORATORYCLIA [id number] [place] [address] [place] Anion gap [Moles/Vol] 10 mmol/L Normal 9-18 [facility] Comment on above: Order Comment: Speci men Type: BLOOD SPECIMENOrdering Facility: [facility] Address: [address] [place] [id number] Performed By: #### 3 016-3, 56674-3 ####[facility] LABCLIA [id number] [place] [address] [place]#### 19448-3 ####[facility] LABCLIA [id number] [place] [id number] [place] AMERICAWVUMEDICINE [facility] [place] LABORATORYCLIA [id number] [place] [address] [place] AST [Catalytic activity/Vol] 25 U/L Normal 14-40 [facility] Comment on above: Order Comment: Speci men Type: BLOOD SPECIMENOrdering Facility: [facility] Address: [address] [place] [address] Performed By: #### 3 016-3, 27506-6 ####[facility] LABCLIA [id number] [place] [address] [place]#### 76144-4 ####[facility] LABCLIA [id number] [address] LABORATORYCLIA [id number] [place] [address] [place] Bilirubin [Mass/Vol] 0.4 mg/dL Normal 0.2-1.3 [facility] Comment on above: Order Comment: Speci men Type: BLOOD SPECIMENOrdering Facility: [facility] Address: [address] [place] [address] Performed By: #### 3 016-3, 15559-2 ####[facility] LABCLIA [id number] [place] [address] [place]#### 11887-3 ####[facility] LABCLIA [id number] [address] [place] LABORATORYCLIA [id number] [place] [address] [place] Calcium [Mass/Vol] 9.3 mg/dL Normal 8.5-10.2 [facility] Comment on above: Order Comment: Speci men Type: BLOOD SPECIMENOrdering Facility: [facility] Address: [address] [place] [address] Performed By: #### 3 016-3, 75895-2 ####[facility]CLIA [id number] [place] [address] [place]#### 23609-0 ####[facility] LABCLIA [id number] [place] [address] [place] [facility]WV[facility] [place] LABORATORYCLIA [id number] [place] [address] [place] Chloride [Moles/Vol] 103 mmol/L Normal 97-105 [facility] Comment on above: Order Comment: Speci men Type: BLOOD SPECIMENOrdering Facility: [facility] Address: [address] Performed By: #### 3 016-3, 38030-5 ####[facility] LABCLIA [id number] [place] [address] [place]#### 56019-6 ####[facility] LABCLIA [id number] [address] STATES OF AMERICASELECT MEDICAL [facility] LABORATORYCLIA [id number] [place] [address] [place] CO2 [Moles/Vol] 26 mmol/L Normal 22-30 [facility] Comment on above: Order Comment: Speci men Type: BLOOD SPECIMENOrdering Facility: [facility] Address: [address] Performed By: #### 3 016-3, 22814-0 ####[facility] LABCLIA [id number] [place] [address] [place]#### 06067-2 ####[facility] LABCLIA [id number] [place] [address] [place] AMERICAWVUMEDIC[facility] [place] LABORATORYCLIA [id number] [place] [address] [place] Creatinine [Mass/Vol] 0.90 mg/dL Normal 0.73-1.22 [facility] Comment on above: Order Comment: Speci men Type: BLOOD SPECIMENOrdering Facility: [facility] Address: [address] [place] [address] Performed By: #### 3 016-3, 82629-9 ####[facility] LABCLIA [id number] [place] [address] [place]#### 67087-5 ####[facility] LABCLIA [id number] [address] LABORATORYCLIA [id number] [address] [place] ESTIMATED GLOMERULAR FILTRATION RATE 105 mL/min/1.73m??? Normal >=60 [facility] Comment on above: Order Comment: Speci men Type: BLOOD SPECIMENOrdering Facility: [facility] Address: [address] [place] [address] Result Comment: Halle mated Glomerular Filtration Rate [...] actual GFR. Performed By: #### 3 016-3, 04230-5 ####[facility] LABCLIA [id number] [address] [place]#### 65773-6 ####[facility] LABCLIA [id number] [address] LABORATORYCLIA [id number] [place] [address] [place] Glucose [Mass/Vol] 115 mg/dL High 74-99 [facility] Comment on above: Order Comment: Speci men Type: BLOOD SPECIMENOrdering Facility: [facility] Address: [address] [place] [address] Result Comment: The [place] Diabetes Association (ADA) provides guidance for cutoff [...] Standards of Medical Care in Diabetes 2016, [place] Diabetes Association. Diabetes Care. 2016.39(Suppl 1). Performed By: #### 3 016-3, 36626-5 ####[facility] LABIA [id number] [address] OF [facility]#### 61463-1 ####[facility] LABIA [id number] [address] LABORATORYIA [id number] [place] [address] [place] Potassium [Moles/Vol] 4.2 mmol/L Normal 3.7-5.1 [facility] Comment on above: Order Comment: Speci men Type: BLOOD SPECIMENOrdering Facility: [facility] Address: [address] [place], [place] [address] Performed By: #### 3 016-3, ####[facility] LABIA [id number] [address] [place]#### 19419-8 ####[facility] LABIA [id number] [address] LABORATORYIA [id number] [address] [place] Protein [Mass/Vol] 6.9 g/dL Normal 6.3-8.0 [facility] Comment on above: Order Comment: Speci men Type: BLOOD SPECIMENOrdering Facility: [facility] Address: [address] [place] [address] Performed By: #### 3 016-3, 51208-4 ####[facility] LABCLIA [id number] [place] [address] [place]#### 44679-8 ####[facility] LABCLIA [id number] [place] [id number] [place] [facility] LABORATORYCLIA [id number] [place] [address] [place] Sodium [Moles/Vol] 139 mmol/L Normal 136-144 [facility] Comment on above: Order Comment: Speci men Type: BLOOD SPECIMENOrdering Facility: [facility] Address: [address] [place] [id number] Performed By: #### 3 016-3, ####[facility] LABCLIA [id number] [place] [address] [place]#### 44133-6 ####[facility] LABCLIA [id number] [place] [id number] [place] OF AMERICASELECT MEDICAL [facility] LABORATORYCLIA [id number] [place] [address] [place] Urea nitrogen [Mass/Vol] 15 mg/dL Normal 9-24 [facility] Comment on above: Order Comment: Speci men Type: BLOOD SPECIMENOrdering Facility: [facility] Address: [address] [place] [address] Performed By: #### 3 016-3, 58983-6 ####[facility] LABCLIA [id number] [place] [address] [place]#### 13648-2 ####[facility] LABCLIA [id number] [address] [address] [place] AMERICACLEVELAND CLIN[facility] [place] LABORATORYCLIA [id number] [place] [address] [place] HbA1c (Bld)on 02-10-2022 Average glucose Estimated from glycated hemoglobin (Bld) [Mass/Vol] 105 mg/dL Normal [facility] Comment on above: Order Comment: Tessa flores Type: BLOOD SPECIMENOrdering Facility: [facility] Address: [address] [place] [address] Result Comment: eAG: (Estimated average glucose) is a calculated value from HgbA1c and is outbound sales representative of the average blood glucose level in the last 2-3 month period. Performed By: #### 5 5454-3 ####[facility] LABCLIA [id number] [address] HbA1c (Bld) [Mass fraction] 5.3 % Normal 4.3-5.6 [facility] Comment on above: Order Comment: Tessa flores Type: BLOOD SPECIMENOrdering Facility: [facility] Address: [address] [place] [address] Result Comment: Amer ican Diabetes Association guidelines indicate that patients with HgbA1c in the range 5.7-6.4% are at increased risk for development of diabetes, and intervention by lifestyle modification may be beneficial. HgbA1c greater or equal to 6.5% is considered diagnostic of diabetes. Performed By: #### 5 5454-3 ####[facility] LABCLIA [id number] [address] [place] Lipid 1996 panelon 2 Cholesterol [Mass/Vol] 179 mg/dL Normal <200 [facility] Comment on above: Order Comment: Tessa flores Type: BLOOD SPECIMENOrdering Facility: [facility] Address: [address] [place] [address] Result Comment: <200 mg/dL, Desirable 200-239 mg/dL, Borderline high >239 mg/dL, High Performed By: #### 3 016-3, 47870-9 ####[facility] LABCLIA [id number] [address] [place]#### [address]50[address]-2 ####[facility] LABCLIA [id number] [address] [place] LABORATORYCLIA [id number] [place] [address] [facility] Cholesterol in HDL [Mass/Vol] 36 mg/dL Low >39 [facility] Comment on above: Order Comment: Speci men Type: BLOOD SPECIMENOrdering Facility: [facility] Address: [address] [place] [address] Result Comment: 40-5 9 mg/dL, Acceptable >59 mg/dL, High: Negative risk factor for coronary heart disease <40 mg/dL, Low: Positive risk factor for coronary heart disease Performed By: #### 3 016-3, 75207-5 ####[facility] LABCLIA [id number] [address]#### 10847-8 ####[facility] LABCLIA [id number] [address] LABORATORYCLIA [id number] [address] [place] Cholesterol in LDL [Mass/Vol] 104 mg/dL High <100 [facility] Comment on above: Order Comment: Speci men Type: BLOOD SPECIMENOrdering Facility: [facility] Address: [address] [place] [address] Result Comment: <100 mg/dL, Optimal 100-129 mg/dL, Near optimal/above optimal 130-159 mg/dL, Borderline high 160-189 mg/dL, High >189 mg/dL, Very high Secondary prevention optimal LDL Cholesterol levels are recommended to be < 70 mg/dL Performed By: #### 3 016-3, 37084-5 ####[facility] LABCLIA [id number] [address] [place]#### 08361-9 ####[facility] LABCLIA [id number] [address] LABORATORYCLIA [id number] [address] Cholesterol in LDL/Cholesterol in HDL [Mass ratio] 2.89 {ratio} High <2.54 [facility] Comment on above: Order Comment: Speci men Type: BLOOD SPECIMENOrdering Facility: [facility] Address: [address] [place] [address] Result Comment: Refe caitlin: 1. National Cholesterol Education Program ATP III Guideline At-A-Glance Quick Desk Reference: National Heart, Lung, and Blood [place]. National Institutes of Health. 2001: NIH Publication No. 01-3305. 2. An International Atherosclerosis Society position paper: global recommendations for the management of dyslipidemia: executive summary, Atherosclerosis. 2014: 232(2):410-413. Performed By: #### 3 016-3, 34685-4 ####[facility] LABCLIA [id number] [place] [address] [place]#### 22368-4 ####[facility] LABCLIA [id number] [address] LABORATORYCLIA [id number] [address] STATES [facility] Cholesterol in VLDL [Mass/Vol] 39 mg/dL High <30 [facility] Comment on above: Order Comment: Speci men Type: BLOOD SPECIMENOrdering Facility: [facility] Address: [address] [place] [address] Performed By: #### 3 016-3, 05507-1 ####[facility] LABCLIA [id number] [place] [address] [place]#### 12376-5 ####[facility] LABCLIA [id number] [place] AVENUEDESK [id number] LABORATORYCLIA [id number] [place] [address] [place] Cholesterol non HDL [Mass/Vol] 143 mg/dL High <130 [facility] Comment on above: Order Comment: Speci men Type: BLOOD SPECIMENOrdering Facility: [facility] Address: [address] [place], [place] [address] Result Comment: <130 mg/dL, Optimal 130-159 mg/dL, Near optimal/above optimal 160-189 mg/dL, Borderline high 190-219 mg/dL, High >219 mg/dL, Very high Secondary prevention optimal non HDL Cholesterol levels are recommended to be <100 mg/dL Performed By: #### 3 016-3, 60619-8 ####[facility] LABCLIA [id number] [place] [address] [place]#### 25243-8 ####[facility] LABCLIA [id number] [address] STATES OF [facility] LABORATORYCLIA [id number] [place] [address] [place] Cholesterol.total/Ch olesterol in HDL [Mass ratio] 4.97 {ratio} Normal <5.10 [facility] Comment on above: Order Comment: Speci men Type: BLOOD SPECIMENOrdering Facility: [facility] Address: [address] [place] [address] Performed By: #### 3 016-3, 91761-6 ####[facility] LABCLIA [id number] [place] [address] [place]#### 51132-8 ####[facility] LABCLIA [id number] [address] STATES OF AMERICASELECT MEDICAL [facility] LABORATORYCLIA [id number] [place] [address] [place] FASTING TIME 12 hrs Normal [facility] Comment on above: Order Comment: Speci men Type: BLOOD SPECIMENOrdering Facility: [facility] Address: [address] [place] [address] Performed By: #### 3 016-3, 59174-3 ####[facility] LABCLIA [id number] [place] [address] [place]#### 53991-4 ####[facility] LABCLIA [id number] [address] [place] LABORATORYCLIA [id number] [address] [place] Triglyceride [Mass/Vol] 197 mg/dL High <150 [facility] Comment on above: Order Comment: Speci men Type: BLOOD SPECIMENOrdering Facility: [facility] Address: [address] [place] [address] Result Comment: <150 mg/dL, Normal 150-199 mg/dL, Borderline high 200-499 mg/dL, High >499 mg/dL, Very high Performed By: #### 3 016-3, 77717-3 ####[facility] LABCLIA [id number] [place] [address] [place]#### 12337-6 ####[facility] LABCLIA [id number] [address] STATES [facility] LABORATORYCLIA [id number] [place] [address] [place] PSA/PROSTSPECAG SCRNon 02-10 Prostate specific Ag [Mass/Vol] 0.42 ng/mL Normal <2.60 [facility] Comment on above: Order Comment: Speci men Type: BLOOD SPECIMENOrdering Facility: [facility] Address: [address] [place] [address] Result Comment: Tota l PSA test methodology used is the Electrochemiluminescence Immunoassay by [employer]. Total PSA values by differing methodologies cannot be interchanged. Performed By: #### P SAS1 ####[facility] LABCLIA [id number] [place] [address] [place] TSH SerPl-aCncon 02-10-2022 TSH Qn 1.220 m[IU]/L Normal 0.270-4.200 [facility] Comment on above: Order Comment: Speci men Type: BLOOD SPECIMENOrdering Facility: [facility] Address: [address] [place] [address] Performed By: #### 3 016-3, 06374-9 ####[facility] LABCLIA [id number] [place] [address] [place]#### 88205-5 ####[facility] LABCLIA [id number] [place] [address] [place] AMERICAWVUMEDICINE [facility] [place] LABORATORYCLIA [id number] [facility], [place] [address] [place] URINALYSIS, REFLEX MICROSCOP ICon 02-10-2022 Bilirubin Ql (U) Negative Normal Negative [facility] Comment on above: Order Comment: Speci men Type: URINE SPECIMENOrdering Facility: [facility] Address: [address] [place] [address] Performed By: #### L [id number] ####[facility] LABCLIA [id number] [place] [address] [place] CALCIUM OXALATE CRYSTALS (UA) Few Abnormal None Seen [facility] Comment on above: Order Comment: Speci men Type: URINE SPECIMENOrdering Facility: [facility] Address: [address] [address] Performed By: #### L [id number] ####[facility] LABCLIA [id number] [place] [address] [place] Clarity (Unsp spec) Clear Normal Clear [facility] Comment on above: Order Comment: Speci men Type: URINE SPECIMENOrdering Facility: [facility] Address: [address] [address] Performed By: #### L [id number] ####[facility] LAB[facility]IA [id number] [place] [address] [place] Color (U) Yellow Normal Yellow [facility] Comment on above: Order Comment: Speci men Type: URINE SPECIMENOrdering Facility: [facility] Address: [address] [place] [address] Performed By: #### L [id number] ####[facility] LAB[facility]IA [id number] [place] [address] [place] Epithelial cells LM.HPF (Urine sed) [#/Area] Few Normal [facility] Comment on above: Order Comment: Speci men Type: URINE SPECIMENOrdering Facility: [facility] Address: [address] [place] [address] Result Comment: Few Performed By: #### L [id number] ####[facility]CLIA [id number] [place] [address] [place] Glucose Test strip (U) [Mass/Vol] Negative Normal Negative [facility] Comment on above: Order Comment: Speci men Type: URINE SPECIMENOrdering Facility: [facility] Address: [address] [place] [address] Performed By: #### L [id number] ####[facility]IA [id number] [place] [address] [place] Hemoglobin Ql (U) Negative Normal Negative [facility] Comment on above: Order Comment: Speci men Type: URINE SPECIMENOrdering Facility: [facility] Address: [address] [place], [place] [address] Performed By: #### L [id number] ####[facility] LABCLIA [id number] [place] [address] [place] Ketones Ql (U) Negative Normal Negative [facility] Comment on above: Order Comment: Speci men Type: URINE SPECIMENOrdering Facility: [facility] Address: [address] [place] [address] Performed By: #### L [id number] ####[facility] LABIA [id number] [place] [address] [place] [facility] Leukocyte esterase Test strip Ql (U) 75 Joyce/mL Abnormal Negative [facility] Comment on above: Order Comment: Speci men Type: URINE SPECIMENOrdering Facility: [facility] Address: [address] [place] [address] Performed By: #### L [id number] ####[facility] LABIA [id number] [place] [address] [place] Nitrite Ql (U) Negative Normal Negative [facility] Comment on above: Order Comment: Speci men Type: URINE SPECIMENOrdering Facility: [facility] Address: [address] [place] [address] Performed By: #### L [id number] ####[facility] LABIA [id number] [place] [address] [place] pH (U) 6.0 [pH] Normal 5.0-8.0 [facility] Comment on above: Order Comment: Speci men Type: URINE SPECIMENOrdering Facility: [facility] Address: [address] [place] [address] Performed By: #### L [id number] ####[facility] LABIA [id number] [place] [address] [place] Protein (U) [Mass/Vol] 1+ Abnormal Negative [facility] Comment on above: Order Comment: Speci men Type: URINE SPECIMENOrdering Facility: [facility] Address: [address] [place] [address] Performed By: #### L [id number] ####[facility] LABIA [id number] [place] [address] [place] RBC LM.HPF (Urine sed) [#/Area] 0-3 /HPF Normal 0-3 /HPF [facility] Comment on above: Order Comment: Speci men Type: URINE SPECIMENOrdering Facility: [facility] Address: [address] [place] [address] Performed By: #### L [id number] ####[facility] LABIA [id number] [address] Specific gravity (U) [Rel density] 1.037 High 1.005-1.030 [facility] Comment on above: Order Comment: Speci men Type: URINE SPECIMENOrdering Facility: [facility] Address: [address] [place] [address] Performed By: #### L [id number] ####[facility] [id number] [address] Urobilinogen Ql (U) 1+ Abnormal Negative [facility] Comment on above: Order Comment: Speci men Type: URINE SPECIMENOrdering Facility: [facility] Address: [address] [place] [address] Performed By: #### L [id number] ####[facility] [id number] [address] [place] WBC LM.HPF (Urine sed) [#/Area] 0-5 /HPF Normal 0-5 /HPF [facility] Comment on above: Order Comment: Speci men Type: URINE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 recommended to be <100 mg/dL Performed By: #### Natalie DENT, 75042-2 ####[facility]CLIA [id number] [address] Cholesterol.total/Ch olesterol in HDL [Mass ratio] 6.49 {ratio} High <5.10 [facility] Comment on above: Order Comment: Tessa flores Type: BLOOD SPECIMENOrdering Facility: [facility] Address: [facility] [place] [address] Performed By: #### L FILIPE, 42131-0 ####[facility]CLIA [id number] [place] [address] [place] FASTING TIME 12. hrs Normal [facility] Comment on above: Order Comment: Speci men Type: BLOOD SPECIMENOrdering Facility: [facility] Address: [address] [place] [address] Performed By: #### L KIERRAB, 97169-3 ####[facility]CLIA [id number] [place] [address] [place] Triglyceride [Mass/Vol] 140 mg/dL Normal <150 [facility] Comment on above: Order Comment: Speci men Type: BLOOD SPECIMENOrdering Facility: [facility] Address: [address] [place] [address] Result Comment: <150 mg/dL, Normal 150-199 mg/dL, Borderline high 200-499 mg/dL, High >499 mg/dL, Very high Performed By: #### L KIERRAB, 13647-7 ####[facility]CLIA [id number] [place] [address] [place] PSA/PROSTSPECAG SCRNon 07-29 Prostate specific Ag [Mass/Vol] 0.41 ng/mL Normal <2.60 [facility] Comment on above: Order Comment: Speci men Type: BLOOD SPECIMENOrdering Facility: [facility] Address: [address] [place] [address] Result Comment: Tota l PSA test methodology used is the Electrochemiluminescence Immunoassay by [employer]. Total PSA values by differing methodologies cannot be interchanged. Performed By: #### P SAS1 ####[facility] LABCLIA [id number] [place] [address] [place] TSH SerPl-aCncon 07-29-2021 TSH Qn 4.060 m[IU]/L Normal 0.270-4.200 [facility] Comment on above: Order Comment: Speci men Type: BLOOD SPECIMENOrdering Facility: [facility] Address: [address] [place] [address] Performed By: #### 3 016-3 ####[facility] LABCLIA [id number] J[facility]ITALN[facility] [id number] [place] URINALYSIS, REFLEX MICROSCOP ICon 07-29-2021 Bilirubin Ql (U) Negative Normal Negative [facility] Comment on above: Order Comment: Speci men Type: URINE SPECIMEN [facility] Address: [address] [place] [address] Performed By: #### L [id number] #### [facility] CLIA [id number] [address] [place] [address] [place] Clarity (Unsp spec) Clear Normal Clear [facility] Comment on above: Order Comment: Speci men Type: URINE SPECIMEN [facility] Address: [address] [place] [address] Performed By: #### L [id number] #### [facility] CLIA [id number] [address] [place] [address] [place] Color (U) Yellow Normal Yellow [facility] Comment on above: Order Comment: Speci men Type: URINE SPECIMEN [facility] Address: [address] [place] [address] Performed By: #### L [id number] #### [facility] CLIA [id number] [address] [place] [address] [place] Glucose Test strip (U) [Mass/Vol] Negative Normal Negative [facility] Comment on above: Order Comment: Speci men Type: URINE SPECIMEN [facility] Address: [address] [place] [address] Performed By: #### L [id number] #### [facility] CLIA [id number] [address] [place] [address] [place] Hemoglobin Ql (U) Negative Normal Negative [facility] Comment on above: Order Comment: Speci men Type: URINE SPECIMEN [facility] Address: [address] [place] [address] Performed By: #### L [id number] #### [facility] CLIA [id number] [address] [place] [address] [place] Ketones Ql (U) Negative Normal Negative [facility] Comment on above: Order Comment: Speci men Type: URINE SPECIMEN [facility] Address: [address] [place] [address] Performed By: #### L [id number] #### [facility] CLIA [id number] [address] [place] [address] [place] Leukocyte esterase Test strip Ql (U) Negative Normal Negative [facility] Comment on above: Order Comment: Speci men Type: URINE SPECIMEN [facility] Address: [address] [place] [address] Performed By: #### L [id number] #### [facility] CLIA [id number] [address] [place] [address] [place] Nitrite Ql (U) Negative Normal Negative [facility] Comment on above: Order Comment: Speci men Type: URINE SPECIMEN [facility] Address: [address] [place] [address] Performed By: #### L [id number] #### [facility] CLIA [id number] [address] [place] [address] [place] pH (U) 5.5 [pH] Normal 5.0-8.0 [facility] Comment on above: Order Comment: Speci men Type: URINE SPECIMEN [facility] Address: [address] [place] [address] Performed By: #### L [id number] #### [facility] CLIA [id number] [address] [place] [address] [place] Protein (U) [Mass/Vol] Negative Normal Negative [facility] Comment on above: Order Comment: Speci men Type: URINE SPECIMEN [facility] Address: [address] [place] [address] Performed By: #### L [id number] #### [facility] CLIA [id number] [address] [place] [address] [place] Specific gravity (U) [Rel density] 1.025 Normal 1.005-1.030 [facility] Comment on above: Order Comment: Speci men Type: URINE SPECIMEN [facility] Address: [address] [place] [address] Performed By: #### L [id number] #### [facility] CLIA [id number] [address] [place] [address] OF [facility] Urobilinogen Ql (U) 0.2 EU/dL Normal 0.2-1.0 EU/dL [facility] Comment on above: Order Comment: Speci men Type: URINE SPECIMEN [facility] Address: [address] [place] [address] Performed By: #### L [id number] #### [facility] CLIA [id number] [address] [place] [address] OF [facility] VITAMIN D 25 HYDROXYon 07-29 25-hydroxyvitamin D3 [Mass/Vol] 29.1 ng/mL Low 31.0-80.0 [facility] Comment on above: Order Comment: Speci men Type: BLOOD SPECIMENOrdering Facility: [facility] Address: [address] [place] [address] Result Comment: Clas sification of 25 [place] Vitamin D status: Deficiency/Insufficiency: < or = 30 ng/ml. Sufficiency/Optimal Levels: 31-80 ng/mL Toxicity: > 100 ng/mL. Test performed by chemiluminescent immunoassay. Performed By: #### V ITD ####[facility] LABCLIA [id number] [address] [place] HISTORY PHYSICALon HISTORY PHYSICAL HNO ID: [id number] Author: Prisca Van PA-C Service: ? 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 It required patient-provider interaction for the medical decision making as documented below. Patient has been identified by name and date of : Yes Reason for call: PACC visit Accompanied by: Self Patient name: Nehal Baig Scheduled Surgery: colonoscopy 07/31/2021 at [place] CHIEF COMPLAINT: Patient presents with: Outpatient Colonoscopy [...] fevers. Neuro: No history of TIA's, stroke, COVER INSPECTOR tumor, impaired sensorium, hemiplegia, paraplegia or quadraplegia. [...] (more content not included)... Normal [facility] CNOVon 07-25-2021 CNOV Office Visit ([facility] ) -- NEHAL BAIG ([id number]) 1970 M Date Time Provider Department 07/25/21 9:20 AM SALOME AGUILLON [facility] During your visit today, we recorded the following information about you: Pulse Blood pressure Weight Height 88/minute 136/78 182.3 kg 1.854 m Salome Aguillon APRN.[facility] 07/25/2021 5:32 PM Signed This note was [...] further at follow-up Salome Aguillon APRN.LEODAN [facility] 07/25/2021 9:43 AM Signed Bowel Preparation Instructions for: Golytely, Nulytely, Trilyte or Coly (more content not included)... Normal [facility] -- NEHAL BAIG ([id number]) 1970 M Date Time Provider Department 07/25/21 SALOME AGUILLON [facility] During your visit today, we recorded the following information about you: Beatriz Cowan 07/25/2021 11:22 AM Signed [facility] states the Golytely is on backorder. They have the Newlytely in stock. Is it OK to substitute? Please advise. [phone]. Beatriz Cowan July 25, 2021 11:22 AM Salome Aguillon APRN.CNP 07/25/2021 12:05 PM Signed Kj Cruz -pt [...] Date Reviewed: 07/25/2021 Reviewed by: Salome Aguillon APRN.GRILL CHEF - Fully Assessed Reason for Visit: Medication [...] SALOME AGUILLON on 07/25/21 Normal [facility] CT CHEST WO IVCONon 02-14-20 Radiology Result ACTIONABLE Abnormal [facility] Basic Metab w/rfx MGon 08-02 (cont.) Normal [facility] Comment on above: Result Comment: Aver age GFR for 40-49 years old: 99 mL/min/1.73sq m Chronic Kidney Disease: <60 mL/min/1.73sq m Kidney failure: <15 mL/min/1.73sq m eGFR calculated using average adult body mass. Additional eGFR calculator available at: http://www.[employer]/multiple_crcl_2012.htm Performed By: #### C BC, BMPX ####[facility] [place] [address] Lab Director: Nate Stafford MD Anion gap [Moles/Vol] 11 mmol/L Normal 9-17 [facility] Comment on above: Performed By: #### C BC, BMPX ####[facility] [address] [place] [id number] Lab Director: Nate Stafford MD Calcium [Mass/Vol] 8.5 mg/dL Low 8.6-10.4 [facility] Comment on above: Performed By: #### C BC, BMPX ####[facility] [address] [place], [place] [id number] lab Director: Nate Stafford MD Chloride [Moles/Vol] 101 mmol/L Normal 98-107 [facility] Comment on above: Performed By: #### C BC, BMPX ####[facility] [address] [place], [place] [phone] Director: Nate Stafford MD CO2 [Moles/Vol] 23 mmol/L Normal 20-31 [facility] Comment on above: Performed By: #### C BC, BMPX ####[facility] [address] [place] [address] Lab Director: Nate Stafford MD Creatinine [Mass/Vol] 0.62 mg/dL Low 0.70-1.20 [facility] Comment on above: Performed By: #### C BC, BMPX ####[facility] [address] [place], [place] [phone] Director: Nate Stafford MD GFR, Amer >60 Normal >60 [facility] Comment on above: Performed By: #### C BC, BMPX ####[facility] [address] [place], [place] [phone] Director: Nate Stafford MD GFR,non Amer >60 Normal >60 [facility] Comment on above: Performed By: #### C BC, BMPX ####[facility] [address] [place], [place] [phone] Director: Nate Stafford MD Glucose [Mass/Vol] 120 mg/dL High 70-99 [facility] Comment on above: Performed By: #### C BC, BMPX ####[facility] [address] [place], [place] [phone] Director: Nate Stafford MD Potassium [Moles/Vol] 4.3 mmol/L Normal 3.7-5.3 [facility] Comment on above: Performed By: #### C BC, BMPX ####[facility] [address] [place] [phone] Director: Nate Stafford MD Sodium [Moles/Vol] 135 mmol/L Normal 135-144 [facility] Comment on above: Performed By: #### C BC, BMPX ####[facility] [address] [place] [address] Lab Director: Nate Stafford MD Urea nitrogen [Mass/Vol] 14 mg/dL Normal 6-20 [facility] Comment on above: Performed By: #### C BC, BMPX ####[facility] [address] [place] [address] Lab Director: Nate Stafford MD BUN/CRE Ratio NOT REPORTED Normal -20 [facility] Comment on above: Performed By: #### C BC, BMPX ####[facility] [address] [place] [address] Lab Director: Nate Stafford MD Staging: NOT REPORTED Normal [facility] Comment on above: Performed By: #### C BC, BMPX ####[facility] [address] [place] [address] Lab Director: Nate Stafford MD Basic Metabolic Panel w/ Ref johnny to MGOrdered By: Halina Pathak on 08-02-2020 Anion gap [Moles/Vol] 11 mmol/L 9 - 17 mmol/L [employer] Phone: Calcium [Mass/Vol] 8.5 mg/dL Low 8.6 - 10. 4 mg/dL [employer] Phone: Chloride [Moles/Vol] 101 mmol/L 98 - 10 7 mmol/L [employer] Phone: CO2 [Moles/Vol] 23 mmol/L 20 - 31 mmol/L [employer] Phone: Creatinine [Mass/Vol] 0.62 mg/dL Low 0.70 - 1.20 mg/dL [employer] Phone: GFR >60 >60 mL/min [employer] Phone: GFR Non- >60 >60 mL/min [employer] Phone: GFR/1.73 sq M.predicted MDRD (S/P/Bld) [Vol rate/Area] [employer] Phone: Comment on above: Average GFR for 40-4 9 years old: 99 mL/min/1.73sq m Chronic Kidney Disease: <60 mL/min/1.73sq m Kidney failure: <15 mL/min/1.73sq m eGFR calculated using average adult body mass. Additional eGFR calculator available at: http://www.[employer]/multiple_crcl_2012.htm GFR/1.73 sq M.predicted MDRD (S/P/Bld) [Vol rate/Area] NOT REPORTED [employer] Phone: Glucose [Mass/Vol] 120 mg/dL High 70 - 99 mg/dL [employer] Phone: Interpretation and review of laboratory results Abnormal [employer] Phone: Potassium [Moles/Vol] 4.3 mmol/L 3.7 - 5.3 mmol/L [employer] Phone: Sodium [Moles/Vol] 135 mmol/L 135 - 144 mmol/L [employer] Phone: Urea nitrogen (BldV) [Mass/Vol] 14 mg/dL 6 - 20 mg/dL [employer] Phone: Urea nitrogen/Creatinine (Bld) [Mass ratio] NOT REPORTED [employer] Phone: CBCon 08-02-2020 Erythrocyte distribution width (RBC) [Ratio] 13.0 % Normal 11.8-14.4 [facility] Comment on above: Performed By: #### C BC, BMPX ####[facility] [address] [place] [address] [facility] Director: Nate Stafford MD Hematocrit (Bld) [Volume fraction] 41.8 % Normal 40.7-50.3 [facility] Comment on above: Performed By: #### C BC, BMPX ####[facility] [address] [place] [address] Lab Director: Nate Stafford MD Hemoglobin (Bld) [Mass/Vol] 13.8 g/dL Normal 13.0-17.0 [facility] Comment on above: Performed By: #### C BC, BMPX ####[facility] [address] [place] [address] lab Director: Nate Stafford MD MCH (RBC) [Entitic mass] 29.3 pg Normal 25.2-33.5 [facility] Comment on above: Performed By: #### C BC, BMPX ####[address] [address] lab Director: Nate Stafford MD MCHC (RBC) [Mass/Vol] 33.0 g/dL Normal 28.4-34.8 [facility] Comment on above: Performed By: #### C BC, BMPX ####[facility] [address] [place] [address] lab Director: Nate Stafford MD MCV (RBC) [Entitic vol] 88.7 fL Normal 82.6-102.9 [facility] Comment on above: Performed By: #### C BC, BMPX ####[facility] [address] [place] [address] lab Director: Nate Stafford MD NRBC Automated 0.0 per 100 WBC Normal 0.0 [facility] Comment on above: Performed By: #### C BC, BMPX ####[facility] [address] [place] [address] lab Director: Nate Stafford MD Platelet mean volume (Bld) [Entitic vol] 10.9 fL Normal 8.1-13.5 [facility] Comment on above: Performed By: #### C BC, BMPX ####[facility] [address] [place], [place] [phone] Director: Nate Stafford MD Platelets (Bld) [#/Vol] 221 10*3/uL Normal 138-453 [facility] Comment on above: Performed By: #### C BC, BMPX ####[facility] [address] [place], [place] [phone] Director: Nate Stafford MD RBC (Bld) [#/Vol] 4.71 10*6/uL Normal 4.21-5.77 [facility] Comment on above: Performed By: #### C BC, BMPX ####[facility] [address] [place], [place] [phone] Director: Nate Stafford MD WBC (Bld) [#/Vol] 10.6 10*3/uL Normal 3.5-11.3 [facility] Comment on above: Performed By: #### C BC, BMPX ####[facility] [address] [place], [place] [phone] Director: Nate Stafford MD CBCOrdered By: Halina Pathak on 08-02-2020 Hematocrit (Bld) [Volume fraction] 41.8 % 40.7 - 50.3 % [employer] Phone: Hemoglobin.gastroint estinal spec 1 Ql (Stl) 13.8 g/dL 13.0 - 17.0 g/dL [employer] Phone: MCH (RBC) [Entitic mass] 29.3 pg 25.2 - 33.5 pg [employer] Phone: MCHC (RBC) [Mass/Vol] 33.0 g/dL 28.4 - 34.8 g/dL [employer] Phone: MCV (RBC) [Entitic vol] 88.7 fL 82.6 - 102.9 fL [employer] Phone: NRBC Automated 0.0 0.0 per 100 WBC [employer] Phone: Platelet distribution width (Bld) [Ratio] 13.0 % 11.8 - 14.4 % [employer] Phone: Platelet mean volume (Bld) [Entitic vol] 10.9 fL 8.1 - 13.5 fL [employer] Phone: Platelets (Bld) [#/Vol] 221 10*3/uL [employer] Phone: RBC (Bld) [#/Vol] 4.71 10*6/uL 4.21 - 5.7 7 m/uL [employer] Phone: WBC (Bld) [#/Vol] 10.6 10*3/uL [employer] Phone: Trauma Profileon 08-02-2020 (cont.) Normal [facility] Comment on above: Result Comment: Aver age GFR for 40-49 years old: 99 mL/min/1.73sq m Chronic Kidney Disease: <60 mL/min/1.73sq m Kidney failure: <15 mL/min/1.73sq m eGFR calculated using average adult body mass. Additional eGFR calculator available at: http://www.[employer]/multiple_crcl_2011.htm Performed By: #### E RTPSHARLA MondragonI ####[facility] [place], [place] [phone] Lab Director: Nate Stafford MD Anion gap [Moles/Vol] 10 mmol/L Normal 9-17 [facility] Comment on above: Performed By: #### E RTPF TROPI ####[employer] [place], [place] [phone] lab Director: Nate Stafford MD Chloride [Moles/Vol] 100 mmol/L Normal 98-107 [facility] Comment on above: Performed By: #### E RTPF, TROPI ####[facility] [address] [place], [place] [phone] Director: Nate Stafford MD CO2 [Moles/Vol] 24 mmol/L Normal 20-31 [facility] Comment on above: Performed By: #### E RTPF, TROPI ####[facility] [address] [place], [place] [phone] Director: Nate Stafford MD Creatinine [Mass/Vol] 0.71 mg/dL Normal 0.70-1.20 [facility] Comment on above: Performed By: #### E RTPF, TROPI ####[facility] [address] [place], [place] [address])[phone] Director: Nate Stafford MD Ethanol [Mass/Vol] mg/dL Normal <10 [facility] Comment on above: Performed By: #### E RTPF, TROPI ####[facility] [address] [place], [place] [phone] Director: Nate Stafford MD Ethanol percent <0.010 Normal <0.010 [facility] Comment on above: Performed By: #### E RTPF, TROPI ####[facility] [address] [place], [place] [phone] Director: Nate Stafford MD GFR, Amer >60 Normal >60 [facility] Comment on above: Performed By: #### E RTPF, TROPI ####[facility] [address] [place], [place] [phone] Director: Nate Stafford MD GFR,non Amer >60 Normal >60 [facility] Comment on above: Performed By: #### E RTPF, TROPI ####[facility] [address] [place] [address] Lab Director: Nate Stafford MD Glucose [Mass/Vol] 109 mg/dL High 70-99 [facility] Comment on above: Performed By: #### Karissa RTBERNIE TROPI ####[facility] [address] [place] [address] Lab Director: Nate Stafford MD Potassium [Moles/Vol] 4.2 mmol/L Normal 3.7-5.3 [facility] Comment on above: Performed By: #### E RTBERNIE TROPI ####[facility] [address] [place] [address] Lab Director: Nate Stafford MD Sodium [Moles/Vol] 134 mmol/L Low 135-144 [facility] Comment on above: Performed By: #### Karissa RTBERNIE TROPI ####[facility] [address] [place], [place] [address])[phone] Director: Nate Stafford MD Urea nitrogen [Mass/Vol] 15 mg/dL Normal 6-20 [facility] Comment on above: Performed By: #### Karissa RTBERNIE TROPI ####[facility] [address] [place], [place] [phone] Director: Nate Stafford MD Troponinon 08-02-2020 Troponin, High Sens 6 ng/L Normal 0-22 [facility] Comment on above: Result Comment: High Sensitivity Troponin values cannot be compared with other Troponin methodologies. Patients with high levels of Biotin oral intake (i.e >5mg/day) may have falsely decreased Troponin levels. Samples collected within 8 hours of biotin intake may require additional information for diagnosis. Performed By: #### Karissa RTBERNIE TROPI ####[facility] [address] [place], [place] [phone] Director: Nate Stafford MD Type + Screenon 08-02-2020 Type + Screen Sample Expiration 08/04/2020,2359 Arm Band Number [id number] ABO/Rh(D) A NEGATIVE Antibody Screen NEGATIVE Normal [facility] Comment on above: Performed By: #### T YS ####[facility] [address] [place] [address] Lab Director: Nate Stafford MD CT CERVICAL [...] Johnny Smalls MD 08/01/20 Final result Normal [facility] CT CERVICAL SPINE WO CONTRAS TOrdered By: Ronnie Lund on 08-01-2020 C6-7 cervical spondy losis and degenerative disc disease. Evidence of paracervical spasm. No acute bony abnormalities are noted [employer] Work Phone: EXAMINATION: CT OF T HE [...] intact. The visualized lung apices are clear. [facility] Phone: [place], Mhpn Incoming R adiant Results From [employer] - 08/01/2020 7:04 PM EDT EXAMINATION: CT [...] spasm. No acute bony abnormalities are noted [facility] Phone: CT CHEST ABDOMEN PELVIS W CO [...] Elizabeth Shoemaker MD 08/01/20 Final result Normal [facility] CT CHEST ABDOMEN PELVIS W CO [...] to Lung-RADS guidelines. Reference: Radiology. 2017; 284(1):228-43. [employer] Phone: EXAMINATION: CT OF T HE CHEST, [...] hernia. Bones/Soft Tissues: No acute osseous abnormality. [employer] Phone: [place], Mhpn Incoming R adiant Results From [employer] - 08/01/2020 7:19 PM EDT EXAMINATION: CT [...] to Lung-RADS guidelines. Reference: Radiology. 2017; 284(1):228-43. [facility] Phone: CT HEAD WO CONTRASTon 2020 CT [...] Jarek Fernández MD 08/01/20 Final result Normal [facility] CT Head WO ContrastOrdered B y: Ronnie Lund on 08-01-2020 1. No acute intracra nial abnormality. [employer] Phone: EXAMINATION: CT OF T HE HEAD [...] clear. SOFT TISSUES/SKULL: The calvarium is intact. [employer] Phone: [place], Mhpn Incoming R adiant Results From [employer] - 08/01/2020 7:01 PM EDT EXAMINATION: CT [...] intact. IMPRESSION: 1. No acute intracranial abnormality. [facility] Phone: CT LUMBAR SPINE TRAUMA RECON STRUCTIONon [...] Johnny Smalls MD 08/01/20 Final result Normal [facility] CT THORACIC SPINE TRAUMA REC ONSTRUCTIONon [...] Johnny Smalls MD 08/01/20 Final result Normal [facility] Drug Scr, Abuse, Uron 2020 Amphetamine(s),Ur Negative Normal NEG [facility] Comment on above: Result Comment: (Positive cutoff 1000 ng/mL) Performed By: #### U AMIC, LOUIS #### [facility] [employer] [address] [place], [place] [phone] Test Borer: Nate Stafford MD Barbiturate(s),Ur Negative Normal NEG [facility] Comment on above: Result Comment: (Positive cutoff 200 ng/mL) Performed By: #### U AMIC, LOUSI #### [employer] [address] [place], [place] [phone] Test Borer: Nate Stafford MD Benzodiazepine(s) Negative Normal NEG [facility] Comment on above: Result Comment: (Positive cutoff 200 ng/mL) Performed By: #### U AMIC, LOUIS #### [employer] [address] [place] [address] [phone] Test Borer: Nate Stafford MD Cannabinoid(s),Ur Negative Normal NEG [facility] Comment on above: Result Comment: (Positive cutoff 50 ng/mL) Performed By: #### U AMIC, LOUIS #### [facility] [employer] [address] [place] [address] Test Borer: Nate Stafford MD Cocaine Metabolite Negative Normal NEG [facility] Comment on above: Result Comment: (Positive cutoff 300 ng/mL) Performed By: #### U AMIC, LOUIS #### [facility] [employer] [address] [place] [address] Test Borer: Nate Stafford MD Interpretive Info Assay provides medic al screening only. The absence of expected drug(s) and/or Normal [facility] Comment on above: Result Comment: meta bolite(s) may indicate diluted or adulterated urine, limitations of testing or timing of collection. Testing for legal purposes should be confirmed by another method. To request confirmation of test result, please call the lab within 7 days of sample submission. Performed By: #### U AMIC, LOUIS #### [facility] [employer] [address] [place] [address] Test Borer: Nate Stafford MD Methadone Ql (U) Negative Normal NEG [facility] Comment on above: Result Comment: (Positive cutoff 300 ng/mL) Performed By: #### U AMIC, LOUIS #### [facility] [employer] [address] [place] [address] Test Borer: Nate Stafford MD Opiate(s), Ur Negative Normal NEG [facility] Comment on above: Result Comment: (Positive cutoff 300 ng/mL) Performed By: #### U AMIC, LOUIS #### [facility] [address] [place] [address] Test Borer: Nate Stafford MD Oxycodone, Urine Negative Normal NEG [facility] Comment on above: Result Comment: (Positive cutoff 100 ng/mL) Performed By: #### U AMIC, LOUIS #### [facility] [address] [place] [address] Test Borer: Nate Stafford MD Phencyclidine, Ur Negative Normal NEG [facility] Comment on above: Result Comment: (Positive cutoff 25 ng/mL) Performed By: #### U AMIC, LOUIS #### [facility] [employer] [address] [place] [address] Test Borer: Nate Stafford MD Buprenorphrine, Ur NOT REPORTED Normal NEG [facility] Comment on above: Performed By: #### U AMIC, LOUIS #### [facility] [address] [place] [address] Test Borer: Nate Stafford MD MDMA, Urine NOT REPORTED Normal NEG [facility] Comment on above: Performed By: #### U AMIC, LOUIS #### [facility] [employer] [address] [place] [address] Test Borer: Nate Stafford MD Methamphetamine, Ur NOT REPORTED Normal NEG [facility] Comment on above: Performed By: #### U AMIC, LOUIS #### [facility] [address] [place] [address] Test Borer: Nate Stafford MD Propoxyphene,Urine NOT REPORTED Normal NEG [facility] Comment on above: Performed By: #### U AMIC, LOUIS #### [facility] [employer] [address] [place] [address] Test Borer: Nate Stafford MD Tricyclic antidepressants Screen Ql (U) NOT REPORTED Normal NEG [facility] Comment on above: Performed By: #### U AMIC, LOUIS #### [facility] [employer] [address] [place] [address] Test Borer: Nate Stafford MD No Panel InformationOrdered By: [...] to body habitus but requires clinical correlation. [employer] Phone: EXAMINATION: TWO XRA Y VIEWS OF [...] may relate to swelling or body habitus. [employer] Phone: [place], Mhpn Incoming R adiant Results From [employer] - 08/01/2020 9:41 PM EDT EXAMINATION: TWO [...] to body habitus but requires clinical correlation. [employer] Phone: No Panel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 drug abuse patient.[facility] HospitalIn the event this information is protected by the Federal Confidentiality of Alcohol and Drug Abuse Patient Records regulations: The Federal rules restrict any use of the information to criminally investigate or prosecute any alcohol or drug abuse patient.[facility] HospitalIn the event this information is protected by the Federal Confidentiality of Alcohol and Drug Abuse Patient Records regulations: The Federal rules restrict any use of the information to criminally investigate or prosecute any alcohol or drug abuse patient.[facility] HospitalIn the event this information is protected by the Federal Confidentiality of Alcohol and Drug Abuse Patient Records regulations: The Federal rules restrict any use of the information to criminally investigate or prosecute any alcohol or drug abuse patient.[facility] HospitalIn the event this information is protected by the Federal Confidentiality of Alcohol and Drug Abuse Patient Records regulations: The Federal rules restrict any use of the information to criminally investigate or prosecute any alcohol or drug abuse patient.[facility] HospitalIn the event this information is protected by the Federal Confidentiality of Alcohol and Drug Abuse Patient Records regulations: The Federal rules restrict any use of the information to criminally investigate or prosecute any alcohol or drug abuse patient.[facility] Teams (unrecognized sec tion and content) Trailer Sections Assembler Relationship Specialty Start Date End Date , FERRY HAND.GRILL [address] [place] [address] PCP - General Family Practice 11/23/19 Trailer Sections Assembler Relationship Specialty Start Date End Date [facility], FERRY HAND[employer]GRILL CHEF [address] [place] [address] PCP - General Family Practice 11/23/19 Trailer Sections Assembler Relationship Specialty Start Date End Date [facility], [employer]GRI[employer]F [address] [place] [address] PCP - General Family Practice 11/23/19 Trailer Sections Assembler Relationship Specialty Start Date End Date [facility], [employer]GRI[employer]F [address] [place] [address] PCP - General Family Practice 11/23/19 Trailer Sections Assembler Relationship Specialty Start Date End [facility] FERRY HAND.GRI[employer] CHEF [address] [place] [address] PCP - General Family Practice 11/23/19 Trailer Sections Assembler Relationship Specialty Start Date End [facility] [address] [place] [address] PCP - General Family Practice 11/23/19 Trailer Sections Assembler Relationship Specialty Start Date End [facility] [employer] [address] [place] [address] PCP - General Family Practice 11/23/19 Trailer Sections Assembler Relationship Specialty Start Date End [facility] [employer]RI[facility] [address] [place] [address] PCP - General Family Practice 11/23/19 Trailer Sections Assembler Relationship Specialty Start Date End Date [facility], [employer] [address] [place] [address] PCP - General Family Practice 11/23/19 Trailer Sections Assembler Relationship Specialty Start Date End [facility], [employer]ERRY HAND[employer]GRI[employer] [address] [place] [address] PCP - General Family Practice 11/23/19 Trailer Sections Assembler Relationship Specialty Start Date End Date [facility], [employer]RI[employer] [address] [place] [address] PCP - General Family Practice 11/23/19 Trailer Sections Assembler Relationship Specialty Start Date End Date [facility], [facility] HAND[facility] [address] [facility] [place] [address] PCP - General Family Practice 11/23/19 Trailer Sections Assembler Relationship Specialty Start Date End [facility], F[employer]Y HAND.GRI[employer] [address] [place] [address] PCP - General Family Practice 11/23/19 Trailer Sections Assembler Relationship Specialty Start Date End [facility], [facility]ERR[facility] HAND[facility] [address] [facility] [place] [address] PCP - General Family Practice 11/23/19 Trailer Sections Assembler Relationship Specialty Start Date End Date [facility], FERRY HAND.GRI[employer] [address] [place] [address] PCP - General Family Practice 11/23/19 Trailer Sections Assembler Relationship Specialty Start Date End Date [facility] FERRY HAND.GRI[employer] [facility] [address] [place] [address] PCP - General Family Medicine 11/23/19 Trailer Sections Assembler Relationship Specialty Start Date End Date [facility] Aguillon, [employer]Y [employer]RI[employer] [address] [place] [address] PCP - General Family Medicine 11/23/19 Trailer Sections Assembler Relationship Specialty Start Date End Date Salome Aguillon, [employer]RI[employer] [address] [place] [address] PCP - General Family Medicine 11/23/19 Trailer Sections Assembler Relationship Specialty Start Date End Date Salome Aguillon, [employer].GRI[employer] [address] [place] [address] PCP - General Family Medicine 11/23/19 Trailer Sections Assembler Relationship Specialty Start Date End Date Salome Aguillon, [employer]Y [employer]RI[employer] [address] [place] [address] PCP - General Family Medicine 11/23/19 Trailer Sections Assembler Relationship Specialty Start Date End Date [facility]ome Aguillon, F[employer]Y [employer] [address] [place] [address] PCP - General Family Medicine 11/23/19 Trailer Sections Assembler Relationship Specialty Start Date End Date Salome Aguillon, F[employer]Y [employer]RI[employer] [address] [place] [address] PCP - General Family Medicine 11/23/19 Trailer Sections Assembler Relationship Specialty Start Date End Date Salome Aguillon, [employer]Y [employer] [address] [place] [address] PCP - General Family Medicine 11/23/19 Trailer Sections Assembler Relationship Specialty Start Date End Date Salome Aguillon, F[employer]Y HAND.[employer]RI[employer] [address] [place] [address] PCP - General Family Medicine 11/23/19 Trailer Sections Assembler Relationship Specialty Start Date End Date [facility] Salome, FERRY HAND.GRILL CHEF [address] [place] [address] PCP - General Family Medicine 11/23/19 Trailer Sections Assembler Relationship Specialty Start Date End Date Salome Aguillon, FERRY HAND.GRILL CHEF [address] [place] [address] PCP - General Family Medicine 11/23/19 Trailer Sections Assembler Relationship Specialty Start Date End Date [facility] Salome, FERRY HAND.GRILL CHEF [address] [place] [address] PCP - General Family Medicine 11/23/19 Team [...] Quezada NP-C Attending Provider Active Team Status: Active Member Role Status Dates PHYSICIAN NO FAMILY Primary Care Provider Active Team Status: Inactive Member Role Status Dates PHYSICIAN NO FAMILY Primary Care Provider Active Start: June 11, 2023 End: June 11, 2023 Siri Quezada NP-Krissy Attending Provider Active Start: June 11, 2023 [...] BE BASED ON THE PRIMARY CLINICAL RECORDS. [facility]. provides no warranty or guarantee of the accuracy or completeness of information in this document.
[2023-11-11 07:35] VITALS: BP 115/74; PULSE 70; TEMP 36.8; O2SAT 96
[2023-11-11 07:35] LABS: INR 1.45; Prothrombin Time 14.8 sec (9.0-11.6)
[2023-11-11 08:25] VITALS: BP 118/60; PULSE 69; O2SAT 92
[2023-11-11] MEDS: BUPIVACAINE HCL 0.25% PF 25 MG/10 ML VIAL INJ (08:26)
[2023-11-11] MEDS: 0.9 % SODIUM CHLORIDE 10 ML SYRINGE - SALINE FLUSH INJ (08:26)
[2023-11-11] MEDS: IOHEXOL 240 MG/ML - 10 ML VIAL INJ (08:27)
[2023-11-11] MEDS: LIDOCAINE HCL 2% 400 MG/20 ML MDV 5 ML INJ (08:27)
[2023-11-11] MEDS: TRIAMCINOLONE ACETONIDE 40 MG/ML VIAL 80 MG INJ (08:27)
[2023-11-11 08:29] VITALS: BP 113/62; PULSE 70; O2SAT 93
--- NOTE | 2023-11-11 08:29 | W.PM.PROCNOT ---
Date of procedure: 11/11/23 Pre-op diagnosis: Pain due to lumbar stenosis with neurogenic claudication Post-op diagnosis: same as pre-op Procedure: Procedure: Bilateral L4-5 transforaminal epidural steroid injection Medications: Bupivacaine 0.25% 2cc, lidocaine 2% 1cc, kenalog 80mg The patient was seen and examined in the preoperative holding area.? Informed consent was obtained and placed on the chart.? Patient was brought to the medical procedure unit and placed in the prone position where a timeout was completed verifying the correct patient, procedure site, position, and planned special equipment using sterile aseptic technique.? Under direct fluoroscopic visualization a 25-gauge Quincke tipped spinal needle was advanced at level left L4-5 to the designated neural foramen where contrast dye was injected to show adequate spread.? There was no evidence of vascular or adverse uptake.? Epidural spread was appreciated.? The above-mentioned injectate was then placed in a 1.5 mL aliquot preceded by negative aspiration.? The needle was removed. The same procedure, at the same level, was completed on the opposite side. ? Patient was taken to the postprocedural recovery area and monitored for an appropriate length of time before found suitable for discharge in the accompaniment of a responsible adult. Anesthesia: Local Surgeon: Brenton Pena Pathology: none sent Condition: stable Disposition: no change
== END 2023-11-11 08:34 | disposition home or self-care (01) ==
LOC: SURGOUT 07:11
PROVIDERS: PCP Family Medicine; Visit Provider Anesthesiology
DX: M48.062 Spinal stenosis, lumbar region with neurogenic claudication (principal)
CPT/HCPCS: 36415; 64483; 85610; J0665; J3301; Q9966

== ENCOUNTER 2023-11-25 07:15 | Day surgery (SDC) | payer BC, SELFPAY ==
--- OUTSIDE RECORDS SUMMARY | 2023-11-25 07:23 | XMS_ITS | CCD ---
Author Organization [facility] Care Team Providers Care Birthing Nurse Name Role Phone Pal MANUFACTURING PLANT TECHNICIAN - [facility] Primary Care Provide r [facility] Primary Care Unavailable JUANITA CARMONA Consulting Unavailable JUANITA CARMONA Attending Unavailable JUANITA CARMONA Admitting [facility]URING PL[facility] TECHNICIAN.[facility] Primary Care Provider [facility] Primary Care Physician Unavaila Nicolasa Barrios Unavailable Unavailable [facility] Primary Care Physician [facility]UFA[employer]URING PLANT TECHNICIAN.[facility] Primary Care Provider [facility] MANUFACTURING PLANT TECHNICIAN.[facility] Primary Care Provider [facility] MANUFACTURING PLANT TECHNICIAN.[facility] Primary Care Provider DR KINGSLEY HERRERA V Consulting Unavailable YRN, DR ARROYO Attending Unavailable YRN, DR ARROYO Admitting Unavailable TOSHA, DR JAYY Marte Consulting Unavailable YRN, DR ARROYO Consulting Unavailable [facility] Referring Unavailable [facility] Primary Care Unavailable ANH MENA Attending Unavailab ANH Morales Referring Unavailab [facility] Primary Care Unavailable [facility] Primary Care Unavailable [facility] Referring Unavailable [facility] Primary Care Unavailable [facility] Attending Unavailable [facility] Referring Unavailable [facility] Primary Care Unavailable [facility] Primary Care Unavailable TREY SHARMA Attending Unavailable TREY SHARMA Referring Unavailable [facility] Attending Unavailable [facility] Primary Care Unavailable [facility] Primary Care Unavailable [facility] Referring Unavailable [facility] Primary Care Unavailable [facility] Attending Unavailable [facility] Referring Unavailable [facility] Primary Care Unavailable [facility] Referring Unavailable [facility] Primary Care Unavailable [facility] Attending Unavailable [facility] Primary Care Unavailable JAYY PATEL Referring Unavailable [facility] Primary Care Unavailable [facility] Attending Unavailable [facility] Primary Care Unavailable ANH MENA Attending Unavailab le [facility] Referring Unavailable ANH MENA Referring Unavailab TARSHA Willson Attending Unavailable [facility] Primary Care Unavailable [facility] Primary Care Unavailable [facility] Referring Unavailable [facility] Primary Care Unavailable [facility] Referring Unavailable Kelly Yi Unavailable HAIDER Aguillon [facility] Primary Care Provider HAIDER iY Attending Provider [phone] HAIDER Quezada Attending Provider HAIDER Guerrero Primary Care Provider Siri Quezada Unavailable Vonnie Guerrero Primary Care Physician [phone] Kandis Amado Unavailable HAIDER Aguillon [facility] Primary Care Provider HAIDER Yi Attending Provider HAIDER Quezada Attending Provider HAIDER Guerrero Primary Care Provider [phone] DO Huan Cowan Attending Provider [phone] Katya Harrington Unavailable Unavailable BROWN, HUAN A [...] Unavailable Giedraitis MD, Andrius Vytautas Attending Unavailable [facility] Unavailable Joel Bledsoe Attending Unavailable Joel Bledsoe Admitting Unavailable Joel Bledsoe Admitting Unavailable CHANDRAKANT BERNAL [facility] Unavailable POLY KAUR Attending Unavailable Siri Quezada Admitting Unavailable YolandaEridi Luisa [facility] Unavailable Damien, Siri Attending Unavailable Quezada, Siri Admitting Unavailable Yolanda, Vonnie Luisa Primary Care Unavailable Siri Quezada Attending Unavailable Quezada, Siri Admitting Unavailable [facility] Unavailabl e Siri Quezada Attending Unavailable Huan Cowan Attending Unavailable Huan Cowan Admitting Unavailable Kelly Yi Attending Unavailable Kelly Yi Admitting Unavailable [facility] Unavailabl e GEORGE, PAUL Admitting Unavailable GEORGE, PAUL Attending Unavailable CHANDRAKANT BERNAL Referring Unavailable CANDICE, Referring Unavailable CHRISTOPHER HARVEYA Referring Unavailable GEORGE, PAUL Referring Unavailable ISAIAS DEMPSEY Referring Unavailabl e CANDICE, Referring Unavailable ISAIAS DEMPSEY Referring Unavailabl e GEORGE, PAUL Admitting Unavailable DORIS, PAUL Attending Unavailable DREW THORPE Referring Unavailable MAI HARVEY Referring Unavailable ISAIAS DEMPSEY Referring Unavailabl e GEORGE, PAUL Referring Unavailable OVITT, NINFA Referring Unavailable CADNICE, Referring Unavailable MERZA, NOORALDIN Referring Unavailable GEORGE, PAUL Referring Unavailable CANDICECHRISTOPHER RODRIGUESA Referring Unavailable GEORGE, PAUL Referring Unavailable ISAIAS DEMPSEY Referring Unavailabl e KULAKOISAIAS MCKEON Referring Unavailabl e SANAULLKAITLIN, JODY Referring Unavailable OVITT, NINFA Referring Unavailable GEORGE, PAUL Referring Unavailable GEORGE, PAUL Referring Unavailable CHRISTOPHER HARVEYA Referring Unavailable ISAIAS DEMPSEY Referring Unavailabl e KUISAIAS DOHERTY Referring Unavailabl e JONTAHAWLucia, EHAB Attending Unavailable JAIME, EHAB Attending Unavailable ISAIAS DEMPSEY Attending Unavailabl e ANNABELLA CHEN Attending Unavailable CARLEEN MONTALVO Attending Unavailable OVITT, NINFA Attending Unavailable CANDICEMAI RODRIGUES Attending Unavailable ELTAHAWY, EHAB Attending Unavailable ANNABELLA CHEN Attending Unavailable PAUL GEORGE Referring Unavailable RUPERT ANGELES Attending Unavailable ROSELYN, ISAIAS Herbert Referring Unavailabl e KULAKOWSKI, ISAIAS Herbert Referring Unavailabl e KULAKOWSKI, ISAIAS Herbert Referring Unavailabl e KULAKOWSKI, ISAIAS Herbert Referring Unavailabl e KULAKOWSKI, ISAIAS Herbert Referring Unavailabl e CANDICE, Referring Unavailable CANDICE, Referring Unavailable KULAKOMIKE, ISAIAS Herbert Referring Unavailabl e KULAKOWSKI, ISAIAS Herbert Referring Unavailabl e KULAKOWSKI, ISAIAS Herbert Referring Unavailabl e Allergies Allergy Classification Reported Allergen(s) Allergy Type Date of Onset Reaction(s) Facility Unclassified (1 source) No Known Medication Allergies; Translations: [No Known Medication Allergies] Propensity to adverse reactions to drug (disorder) [facility] Repository (1 source) atorvastatin; Translations: [ATORVASTATIN] Drug Allergy 4 [facility] Repository Medications Current Medications Medication Drug Class(es) [...] Start: 03-01-2019 take 2 tablets by mo [facility] every six hours as needed for pain acetaminophen 325 mg Tab 650 mg = 2 tab(s), Oral, q6hr, PRN Pain, Refills(s) 0 Start Date: 03/01/19 Status: Ordered take 2 tablets by mo [facility] every twelve hours Acetaminophen 500 MG 2 tablet Orally bid Active [facility] hours as needed Acetaminophen 500 [...] day(s), # 9 cap(s), Refills(s) 0, Pharmacy: [facility] #37, 185.5, cm, 08/08/21 12:06:00 EDT, [...] constipation, # 20 cap(s), Refills(s) 0, Pharmacy: [facility] #37, 185.5, cm, 08/08/21 12:06:00 EDT, Height/Length [...] milk, # 60 tab(s), Refills(s) 0, Pharmacy: [facility] #37, 185.5, cm, 08/08/21 12:06:00 EDT, Height/Length [...] Daily, # 90 tab(s), Refills(s) 3, Pharmacy: [facility]/pharmacy #[id number], 185.5, cm, 01/09/23 16:37:00 [...] 03-23-2017 take 1 capsule by mo [facility] once daily Prilosec 20 mg Cap - DR 20 mg, Oral, Daily, Refills(s) 0 Start Date: 03/23/17 Status: Ordered Start: 2016 take 1 capsule by [facility] once daily Omeprazole 40 mg capsule [...] Comment on above: Take 1 capsule by [facility] once daily. 2 tablet ondansetron (ZOFRAN-ODT) [...] Starting 08/01/20 at 2358 polyethylene glycol 3350 80164 mg powder for oral solution (1 source) Osmotic Laxative Start: 08-01-2020 17 g, Oral, D AILY PRN, Constipation, Starting 08/01/20 at 2358 First line therapy for constipation predniSONE 10 mg oral tablet (5 sources) Start: 06-11-2023 Prednisone Act chi 10 MG PO June 11, 2023 12:00am Start: 09-17-2023 take 1 tablet by tori th every twelve hours predniSONE 20 MG 1 [...] tab(s), Refill(s) 0, 1-2 tab(s) Oral q4hr, [facility] #37, 185.5, cm, 08/08/21 12:06:00 EDT, [...] autopap titration study. Please fax results to [phone]. DX: JACOBY G47.33 1 Each 0 11/08/2016 09/13/2020 Discontinued Comment on above: Please perform autop ap titration study. Please fax results to [phone]. DX: JACOBY G47.33 doxepin hydrochloride 10 mg [...] Comment on above: Take 2 tablets by [facility] daily with dinner. 1 ml morphine [...] 10 mL injection (DEFINITY) polyethylene glycol 3350 538592 mg / potassium chloride 2970 mg / sodium bicarbonate 6740 mg / sodium chloride 5860 mg / sodium sulfate 10852 mg powder for oral solution (14 sources) [...] disease (2 sources) Atherosclerotic heart disease of [place] coronary artery without angina pectoris; Translations: [Atherosclerotic heart disease of [place] coronary artery without angina pectoris] Onset: 4 [...] [Nonrheumatic mitral (valve) insufficiency] Onset: 4 Chronic Hypertension with complications and secondary hypertension (2 sources) Hypertensive heart disease without heart failure; Translations: [Hypertensive heart disease without heart failure] Onset: 4 Chronic Infective arthritis and osteomyelitis [...] [Morbid obesity with BMI of 50.0-59.9, adult ([facility])] Onset: 0 Chronic Other nutritional; endocrine; and metabolic disorders (4 sources) Body mass index (BMI) 50.0-59.9, adult; Translations: [Morbid obesity with BMI of 50.0-59.9, adult ([facility])] Onset: 0 Chronic Other nutritional; [...] (noninflammatory); Translations: [Other pericardial effusion (noninflammatory)] Onset: 09-19-2023 Unclassified (1 source) Acute cough; Translations: [Acute cough] Onset: 08-14-2023 Unclassified (1 source) Supraventricular tachycardia, unspecified; Translations: [Supraventricular tachycardia, unspecified] Onset: 07-25-2023 Results Test Name Value Interpretation Reference Range Facility 36on 11-12-2023 36 Normal [facility] 36on 10-07-2023 36 Normal [facility] Follow-Upon 10-07-2023 Follow-Up Normal [facility] Orders Onlyon 10-07-2023 Orders Only Normal [facility] Telephoneon 10-07-2023 Telephone Normal [facility] ED Clinical Summaryon 2023 ED Clinical Summary [facility] [address] [id number] Clinical Summary PERSON INFORMATION Name: NEHAL BAIG Age: 52 Years Sex: MALE : 1970 MRN: Acct#: Visit Reason: Medical screening exam; DOT PHYSICAL Arrival: 09/26/2023 09:05:07 Discharge: 09/26/2023 10:39:00 LOS: 000 01:34 Check In: 09/26/2023 09:05:07 Checkout: 09/26/2023 10:39:00 Address: [address] [place] [id number] PCP: CHANDRAKANT BERNAL PROVIDER INFORMATION Provider Role [...] Instructions: Follow-Up: With: Address: When: CHANDRAKANT BERNAL [address] [place] [address], [facility] [place] [address] Business (1) , only if needed DIAGNOSIS: Physical exam Patient Understands: Yes - Patient/family/caregiver verbalizes understanding of instructions given Comment: [facility] ED Patient Summaryon 024 ED Patient Summary [facility] ? Urgent Care [address] [place] [address] PATIENT DISCHARGE INSTRUCTIONS Patient Information Name: NEHAL BAIG Age: 52 Years Date of : 1970 Reason For Visit: Medical screening exam; DOT PHYSICAL Arrival Time: 09/26/2023 09:05:07 Primary Care Physician: CHANDRAKANT BERNAL Attending Physician: Joel Bledsoe PA-C Comment: Patient Education With: Address: When: CHANDRAKANT GABE [facility] [place] [address] Business (1) , only if needed Medication Information: The exam and treatment you received today in the [facility] Emergency Department were for an urgent problem and are not intended as complete care. It is important for you to follow up with a doctor, nurse practitioner, or physician?s assistant front desk manager for ongoing care. If your symptoms [...] so we can reach you if necessary. [facility] Emergency Department has provided you with a complete list of medications post discharge. 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 senior estimator/provider of your visit and for further instruction [...] Diagnosis: Diagnoses This Visit Medical screening exam ([id number]) Physical exam (Z00.00) If you received any [...] Standard Urin (more content not included)... 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 POCT Glucose Levelon 024 Glucose [Mass/Vol] 112 mg/dL Normal 74-118 [facility] Comment on above: Result Comment: OPR_ ID=[email or web address],TGC FLAG = False,Meter:[id number] Reclamation Kettle Tender:Remy Montes Performed By: #### 4 [id number] ####[facility] (DEFAULT)[address] [place] [address] UA Standardon 09-26-2023 Breakpoint UA [facility] Comment on above: Performed By: #### 1 [id number] #### [facility] (DEFAULT) [address] [place] [address] Color (U) Yellow [facility] Comment on above: Performed By: #### 1 [id number] #### [facility] (DEFAULT) [address] [place] [address] Glucose (U) [Mass/Vol] mg/dL [facility] Comment on above: Performed By: #### 1 [id number] #### [facility] (DEFAULT) [address] [place] [address] Ketones Ql (U) TRACE [facility] Comment on above: Performed By: #### 1 [id number] #### [facility] (DEFAULT) [address] [place] [address] UA Bilirubin Negative Normal [facility] Comment on above: Performed By: #### 1 [id number] #### [facility] (DEFAULT) [address] [place] [address] UA Blood Negative Normal NEGATIVE [facility] Comment on above: Performed By: #### 1 [id number] #### [facility] (DEFAULT) [address] [place] [address] UA Clarity CLEAR Normal CLEAR [facility] Comment on above: Performed By: #### 1 [id number] #### [facility] (DEFAULT) [address] [place] [address] UA Leuk Est Negative Normal NEGATIVE [facility] Comment on above: Performed By: #### 1 [id number] #### [facility] (DEFAULT) [address] [place] [address] UA Nitrite Negative Normal NEGATIVE [facility] Comment on above: Performed By: #### 1 [id number] #### [facility] (DEFAULT) [address] [place] [address] UA pH 6.0 Normal 5-8 [facility] Comment on above: Performed By: #### 1 [id number] #### [facility] (DEFAULT) [address] [place] [address] UA Protein 100 Abnormal NEGATIVE [facility] Comment on above: Performed By: #### 1 [id number] #### [facility] (DEFAULT) [address] [place] [address] UA Spec Grav >=1.030 Normal 1.001-1.035 [facility] Comment on above: Performed By: #### 1 [id number] #### [facility] (DEFAULT) [address] [place] [address] UA Urobilinogen 0.2 mg/dL Normal 0.2-1.0 [facility] Comment on above: Performed By: #### 1 [id number] #### [facility] (DEFAULT) [address] [place] [address] Urine Source Clean Catch Normal [facility] Comment on above: Performed By: #### 1 [id number] #### [facility] (DEFAULT) [address] [place] [address] Urgent Care Note- Provideron 09-26-2023 Urgent Care [...] history): All Problems Hypertension / SNOMED CT 2059456498 / Confirmed GERD (gastroesophageal reflux disease) / SNOMED CT 339395118 / Confirmed Diabetes / SNOMED CT 120760328 / Confirmed Objective CONST: -Obese -Acute distress: [...] Plan Assessment and Plan: Diagnosis: Physical exam (GGL90-BD Z00.00). Orders Orders Patient Care: Glucose POC [...] 4 months ago. He states that his licensed clinical psychologist told him he is okay to return to work but does not have any paperwork from the licensed clinical psychologist stating that he is okay to drive. Patient also shows a echocardiogram from 1 week ago that shows an ejection fraction of 35%. Patient's recent INR's are not in range of 2.5-3.5 which is required by mechanical heart valve. I discussed this with him indicated that he will need a letter releasing him stating he is okay to drive from his licensed clinical psychologist, I indicated that he needs an echocardiogram [...] [Verified on: 09/26/2023 11:04 EDT] POLY KAUR [facility] [place] 024 Urgent Care Record [facility] ? Urgent Care [address] [place] [address] PATIENT DISCHARGE INSTRUCTIONS Patient Information Name: NEHAL BAIG Age: 52 Years Date of : 1970 [facility]: [id number] Reason For Visit: DOT PHYSICAL Arrival Time: [...] legal documents With: Address: When: CHANDRAKANT BERNAL [address] [place] [address] [place] [address] Business (1) , only if needed Medication Information: The exam and treatment you received today in the [facility] Urgent Care were for an urgent problem and are not intended as complete care. It is important for you to follow up with a doctor, nurse practitioner, or physician?s assistant front desk manager for ongoing care. If your symptoms [...] so we can reach you if necessary. [facility] has provided you with a complete list of medications post discharge. 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 senior estimator/provider of your visit and for further instruction [...] Control and Prevention November 2013 [facility] Abstracton 09-20-2023 Abstract Normal [facility] Follow-Upon 09-19-2023 Follow-Up [facility] 30on 09-06-2023 30 Normal [facility] 30 Normal [facility] BASIC METABOLIC PANELon Anion gap [Moles/Vol] 13 mmol/L Normal 10-18 [facility] Comment on above: Performed By: #### L [id number] ####[facility] (BEAKER)[address] [place] [address] Calcium [Mass/Vol] 9.8 mg/dL Normal 8.6-10.3 [facility] Comment on above: Performed By: #### L AB15 ####[facility] ([facility])[address] [place] [address] Chloride [Moles/Vol] 97 mmol/L Low 98-107 [facility] Comment on above: Performed By: #### L AB15 ####[facility] ([facility])[address] [place] [address] CO2 [Moles/Vol] 31 mmol/L Normal 21-31 [facility] Comment on above: Performed By: #### L AB15 ####[facility] ([facility])[address] [place] [address] Creatinine [Mass/Vol] 1.03 mg/dL Normal 0.70-1.30 [facility] Comment on above: Performed By: #### L AB15 ####[facility] ([facility])[address] [place] [address] GLOMERULAR FILTRATION RATE ML/MIN/1.73 SQ M.PREDICTED 88.5 mL/min/1.73m*2 Normal >60.0 [facility] Comment on above: Result Comment: The [facility]???s estimated glomerular filtration rate (eGFR) will no [...] of individuals. Performed By: #### L AB15 ####[facility] ([facility])[address] [place] [address] Glucose [Mass/Vol] 140 mg/dL High 70-100 [facility] Comment on above: Performed By: #### L [id number] ####[facility] (BEAKER)[address] [place] [address] Potassium [Moles/Vol] 4.6 mmol/L Normal 3.5-5.1 [facility] Comment on above: Performed By: #### L AB15 ####[facility] (BEAKER)[address] [place] [address] Sodium [Moles/Vol] 136 mmol/L Normal 136-145 [facility] Comment on above: Performed By: #### L AB15 ####[facility] (BEAKER)[address] [place] [address] Urea nitrogen [Mass/Vol] 17 mg/dL Normal 7-25 [facility] Comment on above: Performed By: #### L AB15 ####[facility] ([facility] [place] [address] UREA NITROGEN/CREATININE (MASS RATIO) IN SER/PLAS 16.5 Normal [facility] Comment on above: Performed By: #### L [id number] ####[facility] [place] [address] CBCon 09-06-2023 Erythrocyte distribution width (RBC) [Ratio] 15.3 % High 11.5-15.0 [facility] Comment on above: Performed By: #### L [id number] ####[facility] ([facility])[address] [place] [address] ERYTHROCYTE MEAN CORPUSCULAR HEMOGLOBIN CONCENTRATION (G/DL) BY AUTOMATED 29.9 g/dL Low 32.0-35.0 [facility] Comment on above: Performed By: #### L [id number] ####[facility] ([facility])[address] [place], [place] [address] Hematocrit (Bld) [Volume fraction] 40.1 % Normal 39.0-55.0 [facility] Comment on above: Performed By: #### L [id number] ####[facility] (BEAKER)[address] [address] Hemoglobin (Bld) [Mass/Vol] 12.0 g/dL Low 13.0-17.0 [facility] Comment on above: Performed By: #### L [id number] ####[facility] ([facility])[address] [place] [address] MCH (RBC) [Entitic mass] 23.9 pg Low 27.0-33.0 [facility] Comment on above: Performed By: #### L [id number] ####[facility] ([facility])[address] [place] [address] MCV (RBC) [Entitic vol] 79.7 fL Low 82.0-98.0 [facility] Comment on above: Performed By: #### L [id number] ####[facility] ([facility])[address] [place] [address] PLATELETS (10*3/UL) IN BLOOD AUTOMATED COUNT 273 10*3/uL Normal 150-400 [facility] Comment on above: Performed By: #### L [id number] ####[facility] ([facility])[address] [place] [address] RBC (Bld) [#/Vol] 5.03 10*6/uL Normal 4.20-5.70 [facility] Comment on above: Performed By: #### L [id number] ####[facility] ([facility])[address] [address] WBC (Bld) [#/Vol] 6.25 10*3/uL Normal 4.00-10.60 [facility] Comment on above: Performed By: #### L [id number] ####[facility] ([facility])[address] [place] [address] DSon 09-06-2023 DS Normal [facility] MAGNESIUMon 09-06-2023 Magnesium [Mass/Vol] 2.1 mg/dL Normal 1.9-2.7 [facility] Comment on above: Performed By: #### L [id number] ####[facility] ([facility])[address] [place] [address] PHOSPHORUSon 09-06-2023 Magnesium [Mass/Vol] 5.0 mg/dL Normal 2.5-5.0 [facility] Comment on above: Performed By: #### L [id number] ####[facility] (DAMARIS)[address] [place] [address] PROTIME-INRon 09-06-2023 INR IN PPP BY COAGULATION ASSAY 1.58 High 0.90-1.10 [facility] Comment on above: Result Comment: ACCC P [...] CHEST 1995;108:231S-246S. Performed By: #### L [id number] ####[facility] ([place] [facility] [facility])[address] [place] [address] PROTHROMBIN TIME (PT) IN PPP BY COAGULATION ASSAY 18.7 Seconds High 12.3-14.8 [facility] Comment on above: Performed By: #### L [id number] ####[facility] ([facility])[address] [address] 30on 09-05-2023 30 Normal [facility] 30 Normal [facility] BASIC METABOLIC PANELon 06-0 Anion gap [Moles/Vol] 12 mmol/L Normal 7-20 [facility] Comment on above: Performed By: #### L [id number] ####[facility] (BEAKER)[address] [place] [address] Calcium [Mass/Vol] 9.5 mg/dL Normal 8.6-10.3 [facility] Comment on above: Performed By: #### L [id number] ####[facility] (BEAKER)[address] [place] [address] Chloride [Moles/Vol] 96 mmol/L Low 98-107 [facility] Comment on above: Performed By: #### L [id number] ####[facility] (BEAKER)[address] [place] [address] CO2 [Moles/Vol] 32 mmol/L High 21-31 [facility] Comment on above: Performed By: #### L [id number] ####[facility] ([facility])[address] [place] [address] Creatinine [Mass/Vol] 0.96 mg/dL Normal 0.70-1.30 [facility] Comment on above: Performed By: #### L [id number] ####[facility] ([facility])[address] [place] [address] GLOMERULAR FILTRATION RATE ML/MIN/1.73 SQ M.PREDICTED 96.3 mL/min/1.73m*2 Normal >60.0 [facility] Comment on above: Result Comment: The [facility]???s estimated glomerular filtration rate (eGFR) will no [...] of individuals. Performed By: #### L [id number] ####[facility] ([facility])[address] [place] [address] Glucose [Mass/Vol] 102 mg/dL High 70-100 [facility] Comment on above: Performed By: #### L [id number] ####[facility] ([facility])[address] [place] [address] Potassium [Moles/Vol] 4.6 mmol/L Normal 3.5-5.1 [facility] Comment on above: Performed By: #### L [id number] ####[facility] ([facility])[address] [place] [address] Sodium [Moles/Vol] 135 mmol/L Low 136-145 [facility] Comment on above: Performed By: #### L [id number] ####[facility] ([facility])[address] [place] [address] Urea nitrogen [Mass/Vol] 15 mg/dL Normal 7-25 [facility] Comment on above: Performed By: #### L [id number] ####[facility] ([facility])[address] [place] [address] UREA NITROGEN/CREATININE (MASS RATIO) IN SER/PLAS 15.6 Normal [facility] Comment on above: Performed By: #### L [id number] ####[facility] ([facility])[address] [place] [address] CBCon 09-05-2023 Erythrocyte distribution width (RBC) [Ratio] 15.5 % High 11.5-15.0 [facility] Comment on above: Performed By: #### L [id number] ####[facility] ([facility])[address] [place] [address] ERYTHROCYTE MEAN CORPUSCULAR HEMOGLOBIN CONCENTRATION (G/DL) BY AUTOMATED 30.5 g/dL Low 32.0-35.0 [facility] Comment on above: Performed By: #### L [id number] ####[facility] ([facility])[address] [place] [address] Hematocrit (Bld) [Volume fraction] 38.0 % Low 39.0-55.0 [facility] Comment on above: Performed By: #### L [id number] ####[facility] ([facility])[address] [place] [address] Hemoglobin (Bld) [Mass/Vol] 11.6 g/dL Low 13.0-17.0 [facility] Comment on above: Performed By: #### L [id number] ####[facility] ([facility])[address] [address] MCH (RBC) [Entitic mass] 23.9 pg Low 27.0-33.0 [facility] Comment on above: Performed By: #### L [id number] ####[facility] ([facility])[address] [place] [address] MCV (RBC) [Entitic vol] 78.4 fL Low 82.0-98.0 [facility] Comment on above: Performed By: #### L [id number] ####[facility] ([facility])[address] [place] [address] PLATELETS (10*3/UL) IN BLOOD AUTOMATED COUNT 247 10*3/uL Normal 150-400 [facility] Comment on above: Performed By: #### L [id number] ####[facility] ([facility])[address] [place] [address] RBC (Bld) [#/Vol] 4.85 10*6/uL Normal 4.20-5.70 [facility] Comment on above: Performed By: #### L [id number] ####[facility] ([facility])[address] [place] [address] WBC (Bld) [#/Vol] 6.30 10*3/uL Normal 4.00-10.60 [facility] Comment on above: Performed By: #### L [id number] ####[facility] ([facility])[address] [place] [address] MAGNESIUMon 09-05-2023 Magnesium [Mass/Vol] 2.0 mg/dL Normal 1.9-2.7 [facility] Comment on above: Performed By: #### L [id number] ####[facility] (BEAKER)[address] [place] [address] PHOSPHORUSon 09-05-2023 Magnesium [Mass/Vol] 5.2 mg/dL High 2.5-5.0 [facility] Comment on above: Performed By: #### L [id number] ####[facility] (BEAKER)[address] [place] [address] PROTIME-INRon 09-05-2023 INR IN PPP BY COAGULATION ASSAY 1.64 High 0.90-1.10 [facility] Comment on above: Result Comment: ACCC P [...] CHEST 1995;108:231S-246S. Performed By: #### L [id number] ####[facility] (BEAKER)[address] [place] [address] PROTHROMBIN TIME (PT) IN PPP BY COAGULATION ASSAY 19.2 Seconds High 12.3-14.8 [facility] Comment on above: Performed By: #### L [id number] ####[facility] (BEAKER)[address] [place] [address] 30on 09-04-2023 30 Normal [facility] 30 Normal [facility] BASIC METABOLIC PANELon 06-0 Anion gap [Moles/Vol] 12 mmol/L Normal 7-20 [facility] Comment on above: Performed By: #### L [id number] ####[facility] (BEAKER)[address] [place] [address] Calcium [Mass/Vol] 9.1 mg/dL Normal 8.6-10.3 [facility] Comment on above: Performed By: #### L [id number] ####[facility] (BEAKER)[address] [place] [address] Chloride [Moles/Vol] 96 mmol/L Low 98-107 [facility] Comment on above: Performed By: #### L [id number] ####[facility] (BEAKER)[address] [place] [address] CO2 [Moles/Vol] 30 mmol/L Normal 21- [facility] Comment on above: Performed By: #### L [id number] ####[facility] (BEAKER)[address] [place] [address] Creatinine [Mass/Vol] 0.88 mg/dL Normal 0.70-1.30 [facility] Comment on above: Performed By: #### L [id number] ####[facility] (BEAKER)[address] [place] [address] GLOMERULAR FILTRATION RATE ML/MIN/1.73 SQ M.PREDICTED 104.8 mL/min/1.73m*2 Normal >60.0 [facility] Comment on above: Result Comment: The [facility]???s estimated glomerular filtration rate (eGFR) will no [...] of individuals. Performed By: #### L [id number] ####[facility] (BEAKER)[address] [place] [address] Glucose [Mass/Vol] 93 mg/dL Normal 70-100 [facility] Comment on above: Performed By: #### L [id number] ####[facility] (BEAKER)[address] [place] [address] Potassium [Moles/Vol] 4.0 mmol/L Normal 3.5-5.1 [facility] Comment on above: Performed By: #### L [id number] ####[facility] (BEAKER)[address] [place] [address] Sodium [Moles/Vol] 134 mmol/L Low 136-145 [facility] Comment on above: Performed By: #### L [id number] ####[facility] ([facility])[address] [place] [address] Urea nitrogen [Mass/Vol] 16 mg/dL Normal 7-25 [facility] Comment on above: Performed By: #### L [id number] ####[facility] ([facility])[address] [place] [address] UREA NITROGEN/CREATININE (MASS RATIO) IN SER/PLAS 18.2 Normal [facility] Comment on above: Performed By: #### L [id number] ####[facility] (BEAKER)[address] [place] [address] CBCon 09-04-2023 Erythrocyte distribution width (RBC) [Ratio] 15.7 % High 11.5-15.0 [facility] Comment on above: Performed By: #### L [id number] ####[facility] (BEAKER)[address] [place] [address] ERYTHROCYTE MEAN CORPUSCULAR HEMOGLOBIN CONCENTRATION (G/DL) BY AUTOMATED 31.0 g/dL Low 32.0-35.0 [facility] Comment on above: Performed By: #### L [id number] ####[facility] (BEAKER)[address] [place] [address] Hematocrit (Bld) [Volume fraction] 34.5 % Low 39.0-55.0 [facility] Comment on above: Performed By: #### L [id number] ####[facility] ([facility])[address] [place] [address] Hemoglobin (Bld) [Mass/Vol] 10.7 g/dL Low 13.0-17.0 [facility] Comment on above: Performed By: #### L [id number] ####[facility] ([facility])[address] [place] [address] MCH (RBC) [Entitic mass] 24.4 pg Low 27.0-33.0 [facility] Comment on above: Performed By: #### L [id number] ####[facility] ([facility])[address] [place] [address] MCV (RBC) [Entitic vol] 78.8 fL Low 82.0-98.0 [facility] Comment on above: Performed By: #### L [id number] ####[facility] ([facility])[address] [place] [address] PLATELETS (10*3/UL) IN BLOOD AUTOMATED COUNT 221 10*3/uL Normal 150-400 [facility] Comment on above: Performed By: #### L [id number] ####[facility] ([facility])[address] [place] [address] RBC (Bld) [#/Vol] 4.38 10*6/uL Normal 4.20-5.70 [facility] Comment on above: Performed By: #### L [id number] ####[facility] ([facility])[address] [place] [address] WBC (Bld) [#/Vol] 9.37 10*3/uL Normal 4.00-10.60 [facility] Comment on above: Performed By: #### L [id number] ####[facility] ([facility])[address] [place] [address] MAGNESIUMon 09-04-2023 Magnesium [Mass/Vol] 1.8 mg/dL Low 1.9-2.7 [facility] Comment on above: Performed By: #### L [id number] ####[facility] ([employer])[address] [place] [address] PHOSPHORUSon 09-04-2023 Magnesium [Mass/Vol] 4.4 mg/dL Normal 2.5-5.0 [facility] Comment on above: Performed By: #### L [id number] ####[facility] ([employer])[address] [place] [address] PROTIME-INRon 09-04-2023 INR IN PPP BY COAGULATION ASSAY 1.60 High 0.90-1.10 [facility] Comment on above: Result Comment: ACCC P [...] CHEST 1995;108:231S-246S. Performed By: #### L [id number] ####[facility] ([employer])[address] [place] [address] PROTHROMBIN TIME (PT) IN PPP BY COAGULATION ASSAY 18.8 Seconds High 12.3-14.8 [facility] Comment on above: Performed By: #### L [id number] ####[facility] (BEAKER)[address] [place] [address] 30on 09-03-2023 30 Normal [facility] 30 Normal [facility] ANESon 09-03-2023 ANES Normal [facility] APTTon 09-03-2023 ACTIVATED PARTIAL THROMBOPLASTIN TIME IN PPP BY COAGULATION ASSAY 32.6 Seconds Normal 25.0-35.0 [facility] Comment on above: Result Comment: Clin ical significance of the APTT is questionable in the presence of heparin. Performed By: #### L [id number] ####[facility] (BEAKER)[address] [place] [address] BASIC METABOLIC PANELon Anion gap [Moles/Vol] 11 mmol/L Normal 7-20 [facility] Comment on above: Performed By: #### L [id number] ####[facility] (BEAKER)[address] [place] [address] Calcium [Mass/Vol] 9.2 mg/dL Normal 8.6-10.3 [facility] Comment on above: Performed By: #### L [id number] ####[facility] (BEAKER)[address] [place] [address] Chloride [Moles/Vol] 100 mmol/L Normal 98-107 [facility] Comment on above: Performed By: #### L [id number] ####[facility] (BEAKER)[address] [place] [address] CO2 [Moles/Vol] 29 mmol/L Normal 21-31 [facility] Comment on above: Performed By: #### L [id number] ####[facility] (BEAKER)[address] [place] [address] Creatinine [Mass/Vol] 1.11 mg/dL Normal 0.70-1.30 [facility] Comment on above: Performed By: #### L [id number] ####[facility] (BEAKER)[address] [place] [address] GLOMERULAR FILTRATION RATE ML/MIN/1.73 SQ M.PREDICTED 80.9 mL/min/1.73m*2 Normal >60.0 [facility] Comment on above: Result Comment: The [facility]???s estimated glomerular filtration rate (eGFR) will no [...] of individuals. Performed By: #### L [id number] ####[facility] ([facility])[address] [place] [address] Glucose [Mass/Vol] 119 mg/dL High 70-100 [facility] Comment on above: Performed By: #### L [id number] ####[facility] ([facility])[address] [place] [address] Potassium [Moles/Vol] 4.3 mmol/L Normal 3.5-5.1 [facility] Comment on above: Performed By: #### L [id number] ####[facility] ([facility])[address] [place] [address] Sodium [Moles/Vol] 136 mmol/L Normal 136-145 [facility] Comment on above: Performed By: #### L [id number] ####[facility] ([facility])[address] [place] [address] Urea nitrogen [Mass/Vol] 22 mg/dL Normal 7-25 [facility] Comment on above: Performed By: #### L [id number] ####[facility] ([facility])[address] [place] [address] UREA NITROGEN/CREATININE (MASS RATIO) IN SER/PLAS 19.8 Normal [facility] Comment on above: Performed By: #### L [id number] ####[facility] ([facility])[address] [place] [address] Anion gap [Moles/Vol] 11 mmol/L Normal 7-20 [facility] Comment on above: Performed By: #### L [id number] ####[facility] ([facility])[address] [place] [address] Calcium [Mass/Vol] 9.1 mg/dL Normal 8.6-10.3 [facility] Comment on above: Performed By: #### L [id number] ####[facility] ([facility])[address] [place] [address] Chloride [Moles/Vol] 98 mmol/L Normal 98-107 [facility] Comment on above: Performed By: #### L [id number] ####[facility] ([facility])[address] [place] [address] CO2 [Moles/Vol] 30 mmol/L Normal 21-31 [facility] Comment on above: Performed By: #### L [id number] ####[facility] ([facility])[address] [place] [address] Creatinine [Mass/Vol] 1.25 mg/dL Normal 0.70-1.30 [facility] Comment on above: Performed By: #### L [id number] ####[facility] ([facility])[address] [place] [address] GLOMERULAR FILTRATION RATE ML/MIN/1.73 SQ M.PREDICTED 70.2 mL/min/1.73m*2 Normal >60.0 [facility] Comment on above: Result Comment: The [facility]???s estimated glomerular filtration rate (eGFR) will no [...] of individuals. Performed By: #### L [id number] ####[facility] ([facility])[address] [place] [address] Glucose [Mass/Vol] 105 mg/dL High 70-100 [facility] Comment on above: Performed By: #### L [id number] ####[facility] ([facility])[address] [place] [address] Potassium [Moles/Vol] 4.2 mmol/L Normal 3.5-5.1 [facility] Comment on above: Performed By: #### L [id number] ####[facility] ([facility])[address] [place] [address] Sodium [Moles/Vol] 135 mmol/L Low 136-145 [facility] Comment on above: Performed By: #### L [id number] ####[facility] ([facility])[address] [place] [address] Urea nitrogen [Mass/Vol] 22 mg/dL Normal 7-25 [facility] Comment on above: Performed By: #### L [id number] ####[facility] ([facility])[address] [place] [address] UREA NITROGEN/CREATININE (MASS RATIO) IN SER/PLAS 17.6 Normal [facility] Comment on above: Performed By: #### L [id number] ####[facility] ([facility])[address] [place] [address] BLOOD CULTUREon 09-03-2023 Bacteria identified Cx Nom (Bld) No growth at 5 days Normal [facility] Comment on above: Order Comment: From a different site than #1. Performed By: #### L [id number] ####[facility] ([facility])[address] [place] [address]: [address] d Back on Insturment BODY FLUID CELL DIFFERENTIAL on 09-03-2023 BASOPHILS TOTAL PER COUNTED LEUKOCYTES IN BODY FLUID BY MANUAL COUNT 2 Normal [facility] Comment on above: Order Comment: Diffe rential performed on cytospin Performed By: #### L [id number] ####[facility] ([facility])[address] [place] [address] CELLS COUNTED TOTAL (#) IN BODY FLUID 100 [facility] Comment on above: Order Comment: Diffe rential performed on cytospin Performed By: #### L [id number] ####[facility] (BEAKER)[address] [place] [address] EOSINOPHILS TOTAL PER COUNTED LEUKOCYTES IN BODY FLUID BY MANUAL COUNT 3 [facility] Comment on above: Order Comment: Diffe rential performed on cytospin Performed By: #### L [id number] ####[facility] (BEAKER)[address] [place] [address] LYMPHOCYTES TOTAL PER COUNTED LEUKOCYTES IN BODY FLUID BY MANUAL COUNT 53 [facility] Comment on above: Order Comment: Diffe rential performed on cytospin Performed By: #### L [id number] ####[facility] (BEAKER)[address] [place] [address] MESOTHELIAL CELLS TOTAL PER COUNTED LEUKOCYTES IN BODY FLUID BY MANUAL COUN 1 [facility] Comment on above: Order Comment: Diffe rential performed on cytospin Performed By: #### L [id number] ####[facility] (BEAKER)[address] [place] [address] MONOCYTES+MACROPHAGE S TOTAL PER COUNTED LEUKOCYTES IN BODY FLUID BY MANUAL 0 [facility] Comment on above: Order Comment: Diffe rential performed on cytospin Performed By: #### L [id number] ####[facility] (BEAKER)[address] [place] [address] NEUTROPHILS TOTAL PER COUNTED LEUKOCYTES IN BODY FLUID BY MANUAL COUNT 41 [facility] Comment on above: Order Comment: Diffe rential performed on cytospin Performed By: #### L [id number] ####[facility] (BEAKER)[address] [place] [address] OTHER CELLS BODY FLUID (MANUAL) 0 [facility] Comment on above: Order Comment: Diffe rential performed on cytospin Performed By: #### L [id number] ####[facility] (BEAKER)[address] [place] [address] BODY FLUID CULTUREon 024 Bacteria identified Cx Nom (Unsp spec) No growth at 5 days Normal [facility] Comment on above: Performed By: #### L [id number] ####[facility] ([facility])[address] [place] [address] GRAM STAIN RESULT Normal [facility] Comment on above: Result Comment: Poly morphonuclear leukocytesNo organisms seen Performed By: #### L [id number] ####[facility] ([facility])[address] [place] [address] C-REACTIVE PROTEINon 024 C REACTIVE PROTEIN (MG/L) IN SER/PLAS 20.7 mg/L High 0.0-7.0 [facility] Comment on above: Performed By: #### L [id number] ####[facility] ([facility])[address] [place] [address] CBCon 09-03-2023 Erythrocyte distribution width (RBC) [Ratio] 15.4 % High 11.5-15.0 [facility] Comment on above: Performed By: #### L [id number] ####[facility] ([facility])[address] [place] [address] ERYTHROCYTE MEAN CORPUSCULAR HEMOGLOBIN CONCENTRATION (G/DL) BY AUTOMATED 30.5 g/dL Low 32.0-35.0 [facility] Comment on above: Performed By: #### L [id number] ####[facility] ([facility])[address] [place] [address] Hematocrit (Bld) [Volume fraction] 36.4 % Low 39.0-55.0 [facility] Comment on above: Performed By: #### L [id number] ####[facility] ([facility])[address] [place] [address] Hemoglobin (Bld) [Mass/Vol] 11.1 g/dL Low 13.0-17.0 [facility] Comment on above: Performed By: #### L [id number] ####[facility] ([facility])[address] [place] [address] MCH (RBC) [Entitic mass] 24.7 pg Low 27.0-33.0 [facility] Comment on above: Performed By: #### L [id number] ####[facility] (BEAKER)[address] [place] [address] MCV (RBC) [Entitic vol] 81.1 fL Low 82.0-98.0 [facility] Comment on above: Performed By: #### L [id number] ####[facility] ([facility])[address] [address] PLATELETS (10*3/UL) IN BLOOD AUTOMATED COUNT 228 10*3/uL Normal 150-400 [facility] Comment on above: Performed By: #### L [id number] ####[facility] ([facility])[address] [place] [address] RBC (Bld) [#/Vol] 4.49 10*6/uL Normal 4.20-5.70 [facility] Comment on above: Performed By: #### L [id number] ####[facility] ([facility])[address] [place] [address] WBC (Bld) [#/Vol] 9.94 10*3/uL Normal 4.00-10.60 [facility] Comment on above: Performed By: #### L [id number] ####[facility] (BEAKER)[address] [place] [address] Erythrocyte distribution width (RBC) [Ratio] 15.6 % High 11.5-15.0 [facility] Comment on above: Performed By: #### L [id number] ####[facility] (BEAKER)[address] [place] [address] ERYTHROCYTE MEAN CORPUSCULAR HEMOGLOBIN CONCENTRATION (G/DL) BY AUTOMATED 30.1 g/dL Low 32.0-35.0 [facility] Comment on above: Performed By: #### L [id number] ####[facility] (BEAKER)[address] [place] [address] Hematocrit (Bld) [Volume fraction] 36.5 % Low 39.0-55.0 [facility] Comment on above: Performed By: #### L [id number] ####[facility] ([facility])[address] [place] [address] Hemoglobin (Bld) [Mass/Vol] 11.0 g/dL Low 13.0-17.0 [facility] Comment on above: Performed By: #### L [id number] ####[facility] ([facility])[address] [place] [address] MCH (RBC) [Entitic mass] 24.0 pg Low 27.0-33.0 [facility] Comment on above: Performed By: #### L [id number] ####[facility] ([facility])[address] [place] [address] MCV (RBC) [Entitic vol] 79.7 fL Low 82.0-98.0 [facility] Comment on above: Performed By: #### L [id number] ####[facility] ([facility])[address] [place] [address] PLATELETS (10*3/UL) IN BLOOD AUTOMATED COUNT 238 10*3/uL Normal 150-400 [facility] Comment on above: Performed By: #### L [id number] ####[facility] ([facility])[address] [place] [address] RBC (Bld) [#/Vol] 4.58 10*6/uL Normal 4.20-5.70 [facility] Comment on above: Performed By: #### L [id number] ####[facility] ([facility])[address] [place] [address] WBC (Bld) [#/Vol] 10.35 10*3/uL Normal 4.00-10.60 [facility] Comment on above: Performed By: #### L [id number] ####[facility] ([facility])[address] [place] [address] CONSULTon 09-03-2023 CONSULT Normal [facility] GLUCOSE, BODY FLUIDon 2023 GLUCOSE (MG/DL) IN BODY FLUID 33 mg/dL Normal [facility] Comment on above: Result Comment: The reference range and other method performance specifications have not been established for this test in fluids. the test result should be integrated into the clinical context for interpretation. Performed By: #### L [id number] ####[facility] ([facility])[address] [place] [address] HPon 09-03-2023 HP Normal [facility] HP Normal [facility] LACTATE DEHYDROGENASE, BODY FLUIDon 09-03-2023 LACTATE DEHYDROGENASE (U/L) IN BODY FLUID BY LAC->PYR 1022 U/L Normal [facility] Comment on above: Result Comment: The reference range and other method performance specifications have not been established for this test in fluids. the test result should be integrated into the clinical context for interpretation. Performed By: #### L [id number] ####[facility] ([facility])[address] [place] [address] MAGNESIUMon 09-03-2023 Magnesium [Mass/Vol] 2.0 mg/dL Normal 1.9-2.7 [facility] Comment on above: Performed By: #### L [id number] ####[facility] ([facility])[address] [place] [address] Magnesium [Mass/Vol] 1.8 mg/dL Low 1.9-2.7 [facility] Comment on above: Performed By: #### L [id number] ####[facility] ([facility])[address] [place] [address] NON-SENIOR JAVA SOFTWARE DEVELOPER CYTOLOGY - CELLULAR EXAMon 09-03-2023 LAB AP CASE REPORT Normal [facility] Comment on above: Result Comment: Non- gynecologic Cytology Case: [id number] Provider: Art George MD Collected: 09/03/2023 1415Ordering Location: [facility] Received: 09/04/2023 0654Pathologist: LILIA Gutierrezpecimen: Pericardial Fluid Performed By: #### L [id number] ####[facility] ([facility])[address] [place] [place] [address] LAB AP CLINICAL INFORMATION [facility] Comment on above: Result Comment: Post -Op DiagnosesNo Dx found. Performed By: #### L [id number] ####[facility] ([facility])[address] [place] [address] LAB AP GROSS DESCRIPTION [facility] Comment on above: Result Comment: 900 mL opaque, dark red fluid. Performed By: #### L [id number] ####[facility] ([facility])[address] [place] [address] LAB AP REPORT FINAL DIAGNOSIS NARRATIVE [facility] Comment on above: Result Comment: A. P ericardial Fluid: - Negative for malignancy Performed By: #### L [id number] ####[facility] ([facility])[address] [place] [address] PATHOLOGY REVIEWon PATHOLOGY REVIEW Reviewed. Normal [facility] Comment on above: Result Comment: Elec tronically signed by Brenton Sorensen MD on 09/04/23 at 8:43 AM. Performed By: #### L [id number] ####[facility] ([facility])[address] [place] [address] PHOSPHORUSon 09-03-2023 Magnesium [Mass/Vol] 4.5 mg/dL Normal 2.5-5.0 [facility] Comment on above: Performed By: #### L [id number] ####[facility] ([facility])[address] [place] [address] Magnesium [Mass/Vol] 4.3 mg/dL Normal 2.5-5.0 [facility] Comment on above: Performed By: #### L [id number] ####[facility] ([facility])[address] [place] [address] PROTEIN, BODY FLUIDon 2023 Protein (Body fld) [Mass/Vol] 5.0 g/dL [facility] Comment on above: Result Comment: The reference range and other method performance specifications have not been established for this test in fluids. the test result should be integrated into the clinical context for interpretation. Performed By: #### L [id number] ####[facility] [employer])[address] [place] [address] PROTIME-INRon 09-03-2023 INR IN PPP BY COAGULATION ASSAY 1.61 High 0.90-1.10 [facility] Comment on above: Result Comment: [facility] RECOMMENDED INR FOR WARFARIN THERAPY CONDITION INRPROPHYLAXIS OF VENOUS THROMBOSIS 2-3(HIGH-RISK SURGERY)TREATMENT OF VENOUS THROMBOSIS 2-3TREATMENT OF PULMONARY EMBOLISM 2-3PREVENTION OF SYSTEMIC EMBOLISM: 2-3 ACUTE MYOCARDIAL INFARCTION TISSUE HEART VALVES VALVULAR HEART DISEASE ATRIAL FIBRILLATION RECURRENT SYSTEMIC EMBOLISMMECHANICAL HEART VALVE 2.5-3.5 FROM: ORAL ANTICOAGULANTS. MECHANISM OF ACTION, CLINICAL EFFECTIVENESS, AND OPTIMAL THERAPEUTIC RANGE. CHEST 1995;108:231S-246S. Performed By: #### L [id number] ####[facility] [employer])[address] [place] [address] PROTHROMBIN TIME (PT) IN PPP BY COAGULATION ASSAY 19.0 Seconds High 12.3-14.8 [facility] Comment on above: Performed By: #### L [id number] ####[facility] [employer])[address] [place] [address] INR IN PPP BY COAGULATION ASSAY 1.57 High 0.90-1.10 [facility] Comment on above: Result Comment: [facility] P RECOMMENDED INR FOR WARFARIN THERAPY CONDITION INRPROPHYLAXIS OF VENOUS THROMBOSIS 2-3(HIGH-RISK SURGERY)TREATMENT OF VENOUS THROMBOSIS 2-3TREATMENT OF PULMONARY EMBOLISM 2-3PREVENTION OF SYSTEMIC EMBOLISM: 2-3 ACUTE MYOCARDIAL INFARCTION TISSUE HEART VALVES VALVULAR HEART DISEASE ATRIAL FIBRILLATION RECURRENT SYSTEMIC EMBOLISMMECHANICAL HEART VALVE 2.5-3.5 FROM: ORAL ANTICOAGULANTS. MECHANISM OF ACTION, CLINICAL EFFECTIVENESS, AND OPTIMAL THERAPEUTIC RANGE. CHEST 1995;108:231S-246S. Performed By: #### L [id number] ####[facility] ([place] [employer])[address] [place] [address] PROTHROMBIN TIME (PT) IN PPP BY COAGULATION ASSAY 18.6 Seconds High 12.3-14.8 [facility] Comment on above: Performed By: #### L [id number] ####[facility] ([place] [employer])[address] [place] [address] TYPE AND SCREENon 09-03-2023 AB SCREEN Negative [facility] Comment on above: Performed By: #### L [id number] ####[facility] BLOOD B[facility], ABO group Nom (Bld) A Normal [facility] Comment on above: Performed By: #### L [id number] ####[facility]OD [facility], RH TYPE IN BLOOD Negative Normal [facility] Comment on above: Performed By: #### L [id number] ####[facility]OD [facility], 08-30-2023 36 Order faxed. [facility] o [facility] 36on 08-28-2023 36 Normal [facility] Family Medicine Office/Clini c Noteon 08-28-2023 Family [...] machine would like cpap supplies sent to [employer] in [place] pt does wear full mask- Resmed Air Touch F20 machine is Air Curve 10VAuto Needs refill on lisinopril fYI: pt is seeing Neurology referral was sent through [employer] comp. 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 pt will have them done at [facility] on Saturday. Ordered: Misc Prescription, Full [...] will send order to medical supplies in [place] Ordered: Misc Prescription, Full Mask Resmed Air [...] machines and devices) cpap supplies ordere Ordered: [facility] Prescription, Air Curve 10VAuto CPAP machine supplies, See Instructions, 1 EA, 2, Use CPAP machine every night, Supply, 185.5, cm, 01/09/23 16:37:00 EDT, Height/Length Dosing, 174.3, kg, 01/09/23 16:37:00 EDT, Weight Dosing Orders: lisinopril, 10 mg = 1 tab(s), Oral, Daily, # 90 tab(s), Refills(s) 3, Pharmacy: [facility]/pharmacy #[id number], 185.5, cm, 01/09/23 16:37:00 EDT, Height/Length Dosing, 174.3, kg, 01/09/23 16:37:00 EDT, Weight Dosing Follow-up No qualifying data (more content not included)... Normal [facility] Comment on above: Result Comment: Elec tronically Signed By: Yolanda SOTELO, Vonnie Estrada\.br\Date and Time Signed: 08/28/23 09:59 EDT Telephoneon 08-27-2023 Telephone Normal [facility] 36on 08-14-2023 36 Normal [facility] Orders Onlyon 08-12-2023 Orders Only Normal [facility] Orders Onlyon 08-08-2023 Orders Only Normal [facility] 37on 08-07-2023 37 Continue to monitor for signs and symptoms of infection including fever, chills, shortness of breath, chest pain, abdominal pain, nausea, vomiting and diarrhea. Call our office if you notice any of these or go to the ED if needing to Normal [facility] BASIC METABOLIC PANELon 05-0 Anion gap [Moles/Vol] 11 mmol/L Normal 7-20 [facility] Comment on above: Performed By: #### L [id number] ####[facility] (BEAKER)[address] [place] [address] Calcium [Mass/Vol] 9.1 mg/dL Normal 8.6-10.3 [facility] Comment on above: Performed By: #### L [id number] ####[facility] (BEAKER)[address] [place] [address] Chloride [Moles/Vol] 101 mmol/L Normal 98-107 [facility] Comment on above: Performed By: #### L [id number] ####[facility] (BEAKER)[address] [place] [address] CO2 [Moles/Vol] 31 mmol/L Normal 21-31 [facility] Comment on above: Performed By: #### L [id number] ####[facility] ([facility])[address] [place] [address] Creatinine [Mass/Vol] 0.93 mg/dL Normal 0.70-1.30 [facility] Comment on above: Performed By: #### L [id number] ####[facility] ([facility])[address] [place] [address] GLOMERULAR FILTRATION RATE ML/MIN/1.73 SQ M.PREDICTED 100.0 mL/min/1.73m*2 Normal >60.0 [facility] Comment on above: Result Comment: The [facility]???s estimated glomerular filtration rate (eGFR) will no [...] of individuals. Performed By: #### L [id number] ####[facility] ([facility])[address] [place] [address] Glucose [Mass/Vol] 91 mg/dL Normal 70-100 [facility] Comment on above: Performed By: #### L [id number] ####[facility] ([facility])[address] [place] [address] Potassium [Moles/Vol] 4.3 mmol/L Normal 3.5-5.1 [facility] Comment on above: Performed By: #### L [id number] ####[facility] ([facility])[address] [address] Sodium [Moles/Vol] 139 mmol/L Normal 136-145 [facility] Comment on above: Performed By: #### L [id number] ####[facility] ([facility])[address] [address] Urea nitrogen [Mass/Vol] 8 mg/dL Normal 7-25 [facility] Comment on above: Performed By: #### L [id number] ####[facility] ([facility])[address] [address] UREA NITROGEN/CREATININE (MASS RATIO) IN SER/PLAS 8.6 Normal [facility] Comment on above: Performed By: #### L [id number] ####[facility] ([facility])[address] [place] [address] C-REACTIVE PROTEINon 024 C REACTIVE PROTEIN (MG/L) IN SER/PLAS 21.4 mg/L High 0.0-7.0 [facility] Comment on above: Performed By: #### L [id number] ####[facility] ([facility])[address] [place] [address] Follow-Upon 08-07-2023 Follow-Up [facility] Labon 08-07-2023 Lab Normal [facility] SEDIMENTATION RATEon 024 SEDIMENTATION RATE, ERYTHROCYTE 49 mm/hr High <=10 [facility] Comment on above: Performed By: #### L [id number] ####[facility] ([facility])[address] [place] [address] Orders Onlyon 08-05-2023 Orders Only [facility] 36on 07-25-2023 36 Phoned Coumadin clin ic regarding patients recent INR of 1.87. Spoke with RN regarding valve parameters for INR of 2.0-2.5 for first three months post op. RN noted that the patients coumadin would be adjusted to meet the therapeutic range. Normal [facility] Documentationon 07-23-2023 Documentation [facility] 37on 07-17-2023 37 [facility] Follow-Upon 07-17-2023 Follow-Up [facility] Refillon 07-17-2023 Refill [facility] 36on 07-11-2023 36 I received a call fr anders Urias stating the patient has been experiencing low BP and lightheadedness. BP: 96/54 So, she is wondering if his Lisinopril can be DC. He is currently still taking the Metoprolol as prescribed. [facility] Telephoneon 07-11-2023 Telephone [facility] 36on 07-08-2023 36 Opat received. Eliu villalobosed orders with Pina at [facility]. Has an appt w/ Annabella 07/14. [facility] BASIC METABOLIC PANELon Anion gap [Moles/Vol] 12 mmol/L Normal 7-20 [facility] Comment on above: Performed By: #### L [id number] ####[facility] (BEAKER)[address] [place] [place] [address] Calcium [Mass/Vol] 8.7 mg/dL Normal 8.6-10.3 [facility] Comment on above: Performed By: #### L [id number] ####[facility] (BEAKER)[address] [facility] [place] [address] Chloride [Moles/Vol] 102 mmol/L Normal 98-107 [facility] Comment on above: Performed By: #### L [id number] ####[facility] (BEAKER)[address] [facility] [place] [address] CO2 [Moles/Vol] 25 mmol/L Normal 21-31 [facility] Comment on above: Performed By: #### L [id number] ####[facility] (BEAKER)[address] [place] [place] [address] Creatinine [Mass/Vol] 1.02 mg/dL Normal 0.70-1.30 [facility] Comment on above: Performed By: #### L [id number] ####[facility] ([facility])[address] [place] [address] GLOMERULAR FILTRATION RATE ML/MIN/1.73 SQ M.PREDICTED 89.5 mL/min/1.73m*2 Normal >60.0 [facility] Comment on above: Result Comment: The [facility]???s estimated glomerular filtration rate (eGFR) will no [...] of individuals. Performed By: #### L [id number] ####[facility] ([facility])[address] [place] [address] Glucose [Mass/Vol] 101 mg/dL High 70-100 [facility] Comment on above: Performed By: #### L [id number] ####[facility] ([facility])[address] [place] [address] Potassium [Moles/Vol] 3.9 mmol/L Normal 3.5-5.1 [facility] Comment on above: Performed By: #### L [id number] ####[facility] ([facility])[address] [place] [address] Sodium [Moles/Vol] 135 mmol/L Low 136-145 [facility] Comment on above: Performed By: #### L [id number] ####[facility] ([facility])[address] [facility] [address] Urea nitrogen [Mass/Vol] 14 mg/dL Normal 7-25 [facility] Comment on above: Performed By: #### L [id number] ####[facility] ([facility])[address] [facility] [facility] [address] UREA NITROGEN/CREATININE (MASS RATIO) IN SER/PLAS 13.7 Normal [facility] Comment on above: Performed By: #### L [id number] ####[facility] ([facility])[address] [place] [address] CBCon 07-05-2023 Erythrocyte distribution width (RBC) [Ratio] 15.7 % High 11.5-15.0 [facility] Comment on above: Performed By: #### L [id number] ####[facility] ([facility])[address] [address] ERYTHROCYTE MEAN CORPUSCULAR HEMOGLOBIN CONCENTRATION (G/DL) BY AUTOMATED 31.8 g/dL Low 32.0-35.0 [facility] Comment on above: Performed By: #### L [id number] ####[facility] ([facility])[address] [place] [address] Hematocrit (Bld) [Volume fraction] 26.1 % Low 39.0-55.0 [facility] Comment on above: Performed By: #### L [id number] ####[facility] ([facility])[address] [place] [address] Hemoglobin (Bld) [Mass/Vol] 8.3 g/dL Low 13.0-17.0 [facility] Comment on above: Performed By: #### L [id number] ####[facility] ([facility])[address] [place] [address] MCH (RBC) [Entitic mass] 28.2 pg Normal 27.0-33.0 [facility] Comment on above: Performed By: #### L [id number] ####[facility] ([facility])[address] [place] [address] MCV (RBC) [Entitic vol] 88.8 fL Normal 82.0-98.0 [facility] Comment on above: Performed By: #### L [id number] ####[facility] (BEAKER)[address] [place] [address] PLATELETS (10*3/UL) IN BLOOD AUTOMATED COUNT 216 10*3/uL Normal 150-400 [facility] Comment on above: Performed By: #### L [id number] ####[facility] ([facility])[address] [place] [address] RBC (Bld) [#/Vol] 2.94 10*6/uL Low 4.20-5.70 [facility] Comment on above: Performed By: #### L [id number] ####[facility] ([facility])[address] [place] [address] WBC (Bld) [#/Vol] 4.87 10*3/uL Normal 4.00-10.60 [facility] Comment on above: Performed By: #### L [id number] ####[facility] ([facility])[address] [place] [address] DSon 07-05-2023 DS Normal [facility] Letter (Out)on 07-05-2023 Letter (Out) [facility] MAGNESIUMon 07-05-2023 Magnesium [Mass/Vol] 1.9 mg/dL Normal 1.9-2.7 [facility] Comment on above: Performed By: #### L [id number] ####[facility] ([facility])[address] [place] [address] POCT GLUCOSE METER UNSOLICIT ED RESULTSon 07-05-2023 Glucose [Mass/Vol] 123 mg/dL High 70-105 [facility] Comment on above: Order Comment: Waive d Testing in the ED is performed under the ED CLIA certificate #[id number]. Result Comment: [email or web address] Performed By: #### L [id number] ####[facility] ([facility])[address] [place] [address] Glucose [Mass/Vol] 112 mg/dL High 70-105 [facility] Comment on above: Order Comment: Waive d Testing in the ED is performed under the ED CLIA certificate #[id number]. Result Comment: [email or web address] Performed By: #### L [id number] ####[facility] (BEAKER)[address] [place] [address] PROTIME-INRon 07-05-2023 INR IN PPP BY COAGULATION ASSAY 2.17 High 0.90-1.10 [facility] Comment on above: Result Comment: ACCC P [...] CHEST 1995;108:231S-246S. Performed By: #### L [id number] ####[facility] (BEAKER)[address] [place] [address] PROTHROMBIN TIME (PT) IN PPP BY COAGULATION ASSAY 24.3 Seconds High 12.3-14.8 [facility] Comment on above: Performed By: #### L [id number] ####[facility] (BEAKER)[address] [place] [address] 30on 07-04-2023 30 Normal [facility] 30 Normal [facility] 30 Normal [facility] ANTI-XA (LOW MOLECULAR WGT H EPARIN LVL)on 07-04-2023 LMW HEPARIN (U/ML) IN PPP BY CHROMOGENIC METHOD 1.00 IU/mL Normal 0.6-1.2 [facility] Comment on above: Order Comment: For E [...] and LMWH. Performed By: #### L [id number] ####[facility] ([facility])[address] [place] [address] BASIC METABOLIC PANELon 04-0 Anion gap [Moles/Vol] 10 mmol/L Normal 7-20 [facility] Comment on above: Performed By: #### L [id number] ####[facility] ([facility])[address] [place] [address] Calcium [Mass/Vol] 8.6 mg/dL Normal 8.6-10.3 [facility] Comment on above: Performed By: #### L [id number] ####[facility] ([facility])[address] [place] [address] Chloride [Moles/Vol] 103 mmol/L Normal 98-107 [facility] Comment on above: Performed By: #### L [id number] ####[facility] (BEAKER)[address] [place] [address] CO2 [Moles/Vol] 28 mmol/L Normal 21-31 [facility] Comment on above: Performed By: #### L [id number] ####[facility] ([facility])[address] [place] [address] Creatinine [Mass/Vol] 1.04 mg/dL Normal 0.70-1.30 [facility] Comment on above: Performed By: #### L [id number] ####[facility] ([facility])[address] [place] [address] GLOMERULAR FILTRATION RATE ML/MIN/1.73 SQ M.PREDICTED 87.5 mL/min/1.73m*2 Normal >60.0 [facility] Comment on above: Result Comment: The [facility]???s estimated glomerular filtration rate (eGFR) will no [...] of individuals. Performed By: #### L [id number] ####[facility] ([facility])[address] [place] [address] Glucose [Mass/Vol] 91 mg/dL Normal 70-100 [facility] Comment on above: Performed By: #### L [id number] ####[facility] ([facility])[address] [place] [address] Potassium [Moles/Vol] 4.6 mmol/L Normal 3.5-5.1 [facility] Comment on above: Performed By: #### L [id number] ####[facility] ([facility])[address] [place] [address] Sodium [Moles/Vol] 136 mmol/L Normal 136-145 [facility] Comment on above: Performed By: #### L [id number] ####[facility] (BEAKER)[address] [place] [address] Urea nitrogen [Mass/Vol] 13 mg/dL Normal 7-25 [facility] Comment on above: Performed By: #### L [id number] ####[facility] (BEAKER)[address] [place] [address] UREA NITROGEN/CREATININE (MASS RATIO) IN SER/PLAS 12.5 Normal [facility] Comment on above: Performed By: #### L [id number] ####[facility] (BEAKER)[address] [place] [address] CBCon 07-04-2023 Erythrocyte distribution width (RBC) [Ratio] 15.8 % High 11.5-15.0 [facility] Comment on above: Performed By: #### L [id number] ####[facility] (BEAKER)[address] [place] [address] ERYTHROCYTE MEAN CORPUSCULAR HEMOGLOBIN CONCENTRATION (G/DL) BY AUTOMATED 32.0 g/dL Normal 32.0-35.0 [facility] Comment on above: Performed By: #### L [id number] ####[facility] ([facility])[address] [address] Hematocrit (Bld) [Volume fraction] 24.7 % Low 39.0-55.0 [facility] Comment on above: Performed By: #### L [id number] ####[facility] ([facility])[address] [address] Hemoglobin (Bld) [Mass/Vol] 7.9 g/dL Low 13.0-17.0 [facility] Comment on above: Performed By: #### L [id number] ####[facility] ([facility])[address] [place] [address] MCH (RBC) [Entitic mass] 28.9 pg Normal 27.0-33.0 [facility] Comment on above: Performed By: #### L [id number] ####[facility] ([facility])[address] [address] MCV (RBC) [Entitic vol] 90.5 fL Normal 82.0-98.0 [facility] Comment on above: Performed By: #### L [id number] ####[facility] ([facility])[address] [place] [address] PLATELETS (10*3/UL) IN BLOOD AUTOMATED COUNT 243 10*3/uL Normal 150-400 [facility] Comment on above: Performed By: #### L [id number] ####[facility] ([facility])[address] [address] RBC (Bld) [#/Vol] 2.73 10*6/uL Low 4.20-5.70 [facility] Comment on above: Performed By: #### L [id number] ####[facility] ([facility])[address] [place] [address] WBC (Bld) [#/Vol] 5.14 10*3/uL Normal 4.00-10.60 [facility] Comment on above: Performed By: #### L [id number] ####[facility] ([facility])[address] [place] [address] MAGNESIUMon 07-04-2023 Magnesium [Mass/Vol] 1.9 mg/dL Normal 1.9-2.7 [facility] Comment on above: Performed By: #### L [id number] ####[facility] ([facility])[address] [place] [address] POCT GLUCOSE METER UNSOLICIT ED RESULTSon 07-04-2023 Glucose [Mass/Vol] 112 mg/dL High 70-105 [facility] Comment on above: Order Comment: Waive d Testing in the ED is performed under the ED CLIA certificate #[id number]. Result Comment: [email or web address] Performed By: #### L [id number] ####[facility] ([facility])[address] [place] [address] Glucose [Mass/Vol] 130 mg/dL High 70-105 [facility] Comment on above: Order Comment: Waive d Testing in the ED is performed under the ED CLIA certificate #[id number]. Result Comment: [email or web address] Performed By: #### L [id number] ####[facility] ([facility])[address] [place] [address] Glucose [Mass/Vol] 127 mg/dL High 70-105 [facility] Comment on above: Order Comment: Waive d Testing in the ED is performed under the ED CLIA certificate #[id number]. Result Comment: [email or web address] Performed By: #### L [id number] ####[facility] ([facility])[address] [place] [address] Glucose [Mass/Vol] 113 mg/dL High 70-105 [facility] Comment on above: Order Comment: Waive d Testing in the ED is performed under the ED CLIA certificate #[id number]. Result Comment: [email or web address] Performed By: #### L [id number] ####[facility] ([facility])[address] [place] [address] PROTIME-INRon 07-04-2023 INR IN PPP BY COAGULATION ASSAY 1.77 High 0.90-1.10 [facility] Comment on above: Result Comment: ACCC P [...] CHEST 1995;108:231S-246S. Performed By: #### L [id number] ####[facility] ([facility])[address] [place] [address] PROTHROMBIN TIME (PT) IN PPP BY COAGULATION ASSAY 20.7 Seconds High 12.3-14.8 [facility] Comment on above: Performed By: #### L [id number] ####[facility] ([facility])[address] [place] [address] 30on 07-03-2023 30 Normal [facility] ANTI-XA (HEPARIN LEVEL)on HEPARIN UNFRACTIONATED (U/ML) IN PPP BY CHROMOGENIC METHOD 0.12 IU/mL Invalid Interpretation Code 0.3-0.7 [facility] Comment on above: Result Comment: Sofy roxaban and Apixaban will interfere with the anti Xa assay used to monitor UFH and LMWH. Performed By: #### L [id number] ####[facility] ([facility])[address] [place] [address] BASIC METABOLIC PANELon 04-0 Anion gap [Moles/Vol] 11 mmol/L Normal 7-20 [facility] Comment on above: Performed By: #### L [id number] ####[facility] ([facility])[address] [place] [address] Calcium [Mass/Vol] 8.9 mg/dL Normal 8.6-10.3 [facility] Comment on above: Performed By: #### L [id number] ####[facility] ([facility])[address] [place] [address] Chloride [Moles/Vol] 101 mmol/L Normal 98-107 [facility] Comment on above: Performed By: #### L [id number] ####[facility] ([facility])[address] [place] [address] CO2 [Moles/Vol] 28 mmol/L Normal 21-31 [facility] Comment on above: Performed By: #### L [id number] ####[facility] ([facility])[address] [place] [address] Creatinine [Mass/Vol] 1.03 mg/dL Normal 0.70-1.30 [facility] Comment on above: Performed By: #### L [id number] ####[facility] ([facility])[address] [place] [address] GLOMERULAR FILTRATION RATE ML/MIN/1.73 SQ M.PREDICTED 88.5 mL/min/1.73m*2 Normal >60.0 [facility] Comment on above: Result Comment: The [facility]???s estimated glomerular filtration rate (eGFR) will no [...] of individuals. Performed By: #### L [id number] ####[facility] ([facility])[address] [place] [address] Glucose [Mass/Vol] 87 mg/dL Normal 70-100 [facility] Comment on above: Performed By: #### L [id number] ####[facility] ([facility])[address] [place] [address] Potassium [Moles/Vol] 4.4 mmol/L Normal 3.5-5.1 [facility] Comment on above: Performed By: #### L [id number] ####[facility] ([facility])[address] [place] [address] Sodium [Moles/Vol] 136 mmol/L Normal 136-145 [facility] Comment on above: Performed By: #### L [id number] ####[facility] ([facility])[address] [place] [address] Urea nitrogen [Mass/Vol] 13 mg/dL Normal 7-25 [facility] Comment on above: Performed By: #### L [id number] ####[facility] ([facility])[address] [place] [address] UREA NITROGEN/CREATININE (MASS RATIO) IN SER/PLAS 12.6 Normal [facility] Comment on above: Performed By: #### L [id number] ####[facility] ([facility])[address] [place] [place] [address] CBCon 07-03-2023 Erythrocyte distribution width (RBC) [Ratio] 15.5 % High 11.5-15.0 [facility] Comment on above: Performed By: #### L [id number] ####[facility] ([facility])[address] [place] [address] ERYTHROCYTE MEAN CORPUSCULAR HEMOGLOBIN CONCENTRATION (G/DL) BY AUTOMATED 31.9 g/dL Low 32.0-35.0 [facility] Comment on above: Performed By: #### L [id number] ####[facility] ([facility])[address] [place] [address] Hematocrit (Bld) [Volume fraction] 25.4 % Low 39.0-55.0 [facility] Comment on above: Performed By: #### L [id number] ####[facility] ([facility])[address] [place] [address] Hemoglobin (Bld) [Mass/Vol] 8.1 g/dL Low 13.0-17.0 [facility] Comment on above: Performed By: #### L [id number] ####[facility] ([facility])[address] [place] [address] MCH (RBC) [Entitic mass] 28.8 pg Normal 27.0-33.0 [facility] Comment on above: Performed By: #### L [id number] ####[facility] ([facility])[address] [place] [address] MCV (RBC) [Entitic vol] 90.4 fL Normal 82.0-98.0 [facility] Comment on above: Performed By: #### L [id number] ####[facility] ([facility])[address] [place] [address] PLATELETS (10*3/UL) IN BLOOD AUTOMATED COUNT 247 10*3/uL Normal 150-400 [facility] Comment on above: Performed By: #### L [id number] ####[facility] ([facility])[address] [place] [address] RBC (Bld) [#/Vol] 2.81 10*6/uL Low 4.20-5.70 [facility] Comment on above: Performed By: #### L [id number] ####[facility] ([facility])[address] [place] [address] WBC (Bld) [#/Vol] 4.31 10*3/uL Normal 4.00-10.60 [facility] Comment on above: Performed By: #### L [id number] ####[facility] ([facility])[address] [place] [address] MAGNESIUMon 07-03-2023 Magnesium [Mass/Vol] 2.0 mg/dL Normal 1.9-2.7 [facility] Comment on above: Performed By: #### L [id number] ####[facility] ([facility])[address] [place] [address] POCT GLUCOSE METER UNSOLICIT ED RESULTSon 07-03-2023 Glucose [Mass/Vol] 127 mg/dL High 70-105 [facility] Comment on above: Order Comment: Waive d Testing in the ED is performed under the ED CLIA certificate #[id number]. Result Comment: [email or web address] Performed By: #### L [id number] ####[facility] ([facility])[address] [place] [address] Glucose [Mass/Vol] 129 mg/dL High 70-105 [facility] Comment on above: Order Comment: Waive d Testing in the ED is performed under the ED CLIA certificate #[id number]. Result Comment: [email or web address] Performed By: #### L [id number] ####[facility] ([facility])[address] [place] [address] Glucose [Mass/Vol] 135 mg/dL High 70-105 [facility] Comment on above: Order Comment: Waive d Testing in the ED is performed under the ED CLIA certificate #[id number]. Result Comment: [email or web address] Performed By: #### L [id number] ####[facility] ([facility])[address] [place] [address] Glucose [Mass/Vol] 99 mg/dL Normal 70-105 [facility] Comment on above: Order Comment: Waive d Testing in the ED is performed under the ED CLIA certificate #[id number]. Result Comment: [email or web address] Performed By: #### L [id number] ####[facility] ([facility])[address] [place] [address] PROTIME-INRon 07-03-2023 INR IN PPP BY COAGULATION ASSAY 1.62 High 0.90-1.10 [facility] Comment on above: Result Comment: ACCC P [...] CHEST 1995;108:231S-246S. Performed By: #### L [id number] ####[facility] ([facility])[address] [place] [address] PROTHROMBIN TIME (PT) IN PPP BY COAGULATION ASSAY 19.3 Seconds High 12.3-14.8 [facility] Comment on above: Performed By: #### L [id number] ####[facility] ([facility])[address] [place] [address] 30on 07-02-2023 30 The patient is Moder ately Stable - Low risk of patient condition declining or worsening The patient's goals for the shift include comfort, rest The clinical goals for the shift include Stable vitals, comfort Normal [facility] 30 Normal [facility] 30 Normal [facility] ANTI-XA (HEPARIN LEVEL)on 04 -02-2024 HEPARIN UNFRACTIONATED (U/ML) IN PPP BY CHROMOGENIC METHOD 0.47 IU/mL Normal 0.3-0.7 [facility] Comment on above: Result Comment: Amelia roxaban and Apixaban will interfere with the anti Xa assay used to monitor UFH and LMWH. Performed By: #### L [id number] ####[facility] ([facility])[address] [place] [address] BASIC METABOLIC PANELon 04-0 Anion gap [Moles/Vol] 12 mmol/L Normal 7-20 [facility] Comment on above: Performed By: #### L [id number] ####[facility] ([facility])[address] [place] [address] Calcium [Mass/Vol] 8.9 mg/dL Normal 8.6-10.3 [facility] Comment on above: Performed By: #### L [id number] ####[facility] ([facility])[address] [place] [address] Chloride [Moles/Vol] 97 mmol/L Low 98-107 [facility] Comment on above: Performed By: #### L [id number] ####[facility] ([facility])[address] [place] [address] CO2 [Moles/Vol] 28 mmol/L Normal 21- [facility] Comment on above: Performed By: #### L [id number] ####[facility] ([facility])[address] [place] [address] Creatinine [Mass/Vol] 1.00 mg/dL Normal 0.70-1.30 [facility] Comment on above: Performed By: #### L [id number] ####[facility] ([facility])[address] [facility] [address] GLOMERULAR FILTRATION RATE ML/MIN/1.73 SQ M.PREDICTED 91.7 mL/min/1.73m*2 Normal >60.0 [facility] Comment on above: Result Comment: The [facility]???s estimated glomerular filtration rate (eGFR) will no [...] of individuals. Performed By: #### L [id number] ####[facility] ([facility])[address] [place] [address] Glucose [Mass/Vol] 100 mg/dL Normal 70-100 [facility] Comment on above: Performed By: #### L [id number] ####[facility] ([facility])[address] [place] [address] Potassium [Moles/Vol] 3.9 mmol/L Normal 3.5-5.1 [facility] Comment on above: Performed By: #### L [id number] ####[facility] ([facility])[address] [place] [address] Sodium [Moles/Vol] 133 mmol/L Low 136-145 [facility] Comment on above: Performed By: #### L [id number] ####[facility] ([facility])[address] [place] [address] Urea nitrogen [Mass/Vol] 10 mg/dL Normal 7-25 [facility] Comment on above: Performed By: #### L [id number] ####[facility] ([facility])[address] [place] [address] UREA NITROGEN/CREATININE (MASS RATIO) IN SER/PLAS 10.0 Normal [facility] Comment on above: Performed By: #### L [id number] ####[facility] ([facility])[address] [place] [address] CBC WITH AUTO DIFFERENTIALon 07-02-2023 Basophils (Bld) [#/Vol] 0.05 10*3/uL Normal 0.00-0.20 [facility] Comment on above: Performed By: #### L [id number] ####[facility] ([facility])[address] [place] [address] Basophils/100 WBC (Bld) 0.9 % Normal 0.0-1.0 [facility] Comment on above: Performed By: #### L [id number] ####[facility] ([facility])[address] [place] [address] Eosinophils (Bld) [#/Vol] 0.27 10*3/uL Normal 0.00-0.50 [facility] Comment on above: Performed By: #### L [id number] ####[facility] ([facility])[address] [place] [address] Eosinophils/100 WBC (Bld) 4.6 % Normal 0.0-6.0 [facility] Comment on above: Performed By: #### L [id number] ####[facility] ([facility])[address] [place] [address] Erythrocyte distribution width (RBC) [Ratio] 15.4 % High 11.5-15.0 [facility] Comment on above: Performed By: #### L [id number] ####[facility] ([facility])[address] [place] [address] ERYTHROCYTE MEAN CORPUSCULAR HEMOGLOBIN CONCENTRATION (G/DL) BY AUTOMATED 32.7 g/dL Normal 32.0-35.0 [facility] Comment on above: Performed By: #### L [id number] ####[facility] ([facility])[address] [place] [address] Hematocrit (Bld) [Volume fraction] 27.2 % Low 39.0-55.0 [facility] Comment on above: Performed By: #### L [id number] ####[facility] ([facility])[address] [place] [address] Hemoglobin (Bld) [Mass/Vol] 8.9 g/dL Low 13.0-17.0 [facility] Comment on above: Performed By: #### L [id number] ####[facility] ([facility])[address] [place] [address] Immature granulocytes (Bld) [#/Vol] 0.04 10*3/uL Normal 0.00-0.20 [facility] Comment on above: Performed By: #### L [id number] ####[facility] ([facility])[address] [place] [address] Immature granulocytes/100 WBC (Bld) 0.7 % Normal 0.0-1.0 [facility] Comment on above: Performed By: #### L [id number] ####[facility] ([facility])[address] [place] [address] Lymphocytes (Bld) [#/Vol] 1.10 10*3/uL Low 1.20-4.00 [facility] Comment on above: Performed By: #### L [id number] ####[facility] ([facility])[address] [place] [address] Lymphocytes/100 WBC (Bld) 18.8 % Low 20.0-45.0 [facility] Comment on above: Performed By: #### L [id number] ####[facility] ([facility])[address] [place] [address] MCH (RBC) [Entitic mass] 29.0 pg Normal 27.0-33.0 [facility] Comment on above: Performed By: #### L [id number] ####[facility] ([facility])[address] [place] [address] MCV (RBC) [Entitic vol] 88.6 fL Normal 82.0-98.0 [facility] Comment on above: Performed By: #### L [id number] ####[facility] ([facility])[address] [place] [address] Monocytes (Bld) [#/Vol] 0.73 10*3/uL Normal 0.10-1.00 [facility] Comment on above: Performed By: #### L [id number] ####[facility] ([facility])[address] [place] [address] Monocytes/100 WBC (Bld) 12.5 % High 5.0-12.0 [facility] Comment on above: Performed By: #### L [id number] ####[facility] ([facility])[address] [place] [address] Neutrophils (Bld) [#/Vol] 3.67 10*3/uL Normal 1.60-7.60 [facility] Comment on above: Performed By: #### L [id number] ####[facility] ([facility])[address] [address] Neutrophils/100 WBC (Bld) 62.5 % Normal 40.0-72.0 [facility] Comment on above: Performed By: #### L [id number] ####[facility] ([facility])[address] [place] [address] NRBC (PER 100 WBCS) BY AUTOMATED COUNT 0.0 % Normal 0 [facility] Comment on above: Performed By: #### L [id number] ####[facility] ([facility])[address] [place] [address] PLATELETS (10*3/UL) IN BLOOD AUTOMATED COUNT 292 10*3/uL Normal 150-400 [facility] Comment on above: Performed By: #### L [id number] ####[facility] ([facility])[address] [place] [address] RBC (Bld) [#/Vol] 3.07 10*6/uL Low 4.20-5.70 [facility] Comment on above: Performed By: #### L [id number] ####[facility] ([facility])[address] [place] [address] WBC (Bld) [#/Vol] 5.86 10*3/uL Normal 4.00-10.60 [facility] Comment on above: Performed By: #### L [id number] ####[facility] ([facility])[address] [place] [address] MAGNESIUMon 07-02-2023 Magnesium [Mass/Vol] 2.0 mg/dL Normal 1.9-2.7 [facility] Comment on above: Performed By: #### L [id number] ####[facility] ([facility])[address] [place] [address] NURSNOTEon 07-02-2023 NURSNOTE Heparin level 0.47, no need for rate change at this time. Safety Maintained. Normal [facility] POCT GLUCOSE METER UNSOLICIT ED RESULTSon 07-02-2023 Glucose [Mass/Vol] 118 mg/dL High 70-105 [facility] Comment on above: Order Comment: Waive d Testing in the ED is performed under the ED CLIA certificate #[id number]. Result Comment: [email or web address] Performed By: #### L [id number] ####[facility] ([facility])[address] [place] [address] Glucose [Mass/Vol] 154 mg/dL High 70-105 [facility] Comment on above: Order Comment: Waive d Testing in the ED is performed under the ED CLIA certificate #[id number]. Result Comment: [email or web address] Performed By: #### L [id number] ####[facility] ([facility])[address] [address] Glucose [Mass/Vol] 138 mg/dL High 70-105 [facility] Comment on above: Order Comment: Waive d Testing in the ED is performed under the ED CLIA certificate #[id number]. Result Comment: [email or web address] Performed By: #### L [id number] ####[facility] ([facility])[address] [place] [address] Glucose [Mass/Vol] 106 mg/dL High 70-105 [facility] Comment on above: Order Comment: Waive d Testing in the ED is performed under the ED CLIA certificate #[id number]. Result Comment: [email or web address] Performed By: #### L [id number] ####[facility] ([facility])[address] [place] [address] PROTIME-INRon 07-02-2023 INR IN PPP BY COAGULATION ASSAY 1.45 High 0.90-1.10 [facility] Comment on above: Result Comment: ACCC P [...] CHEST 1995;108:231S-246S. Performed By: #### L [id number] ####[facility] ([facility])[address] [place] [address] PROTHROMBIN TIME (PT) IN PPP BY COAGULATION ASSAY 17.7 Seconds High 12.3-14.8 [facility] Comment on above: Performed By: #### L [id number] ####[facility] ([facility])[address] [place] [address] 30on 07-01-2023 30 Normal [facility] 30 Normal [facility] 30 Normal [facility] 30 The patient is Moder ately Stable - Low risk of patient condition declining or worsening The patient's goals for the shift include comfort The clinical goals for the shift include safety Normal [facility] ANTI-XA (HEPARIN LEVEL)on HEPARIN UNFRACTIONATED (U/ML) IN PPP BY CHROMOGENIC METHOD 0.38 IU/mL Normal 0.3-0.7 [facility] Comment on above: Result Comment: Amelia roxaban and Apixaban will interfere with the anti Xa assay used to monitor UFH and LMWH. Performed By: #### L [id number] ####[facility] ([facility])[address] [facility] [facility] [address] BASIC METABOLIC PANELon 04-0 Anion gap [Moles/Vol] 12 mmol/L Normal 7-20 [facility] Comment on above: Performed By: #### L [id number] ####[facility] ([facility])[address] [address] Calcium [Mass/Vol] 8.6 mg/dL Normal 8.6-10.3 [facility] Comment on above: Performed By: #### L [id number] ####[facility] ([facility])[address] [address] Chloride [Moles/Vol] 95 mmol/L Low 98-107 [facility] Comment on above: Performed By: #### L [id number] ####[facility] ([facility])[address] [place] [address] CO2 [Moles/Vol] 30 mmol/L Normal 21-31 [facility] Comment on above: Performed By: #### L [id number] ####[facility] ([facility])[address] [place] [address] Creatinine [Mass/Vol] 0.89 mg/dL Normal 0.70-1.30 [facility] Comment on above: Performed By: #### L [id number] ####[facility] ([facility])[address] [place] [address] GLOMERULAR FILTRATION RATE ML/MIN/1.73 SQ M.PREDICTED 104.4 mL/min/1.73m*2 Normal >60.0 [facility] Comment on above: Result Comment: The [facility]???s estimated glomerular filtration rate (eGFR) will no [...] of individuals. Performed By: #### L [id number] ####[facility] ([facility])[address] [place] [address] Glucose [Mass/Vol] 95 mg/dL Normal 70-100 [facility] Comment on above: Performed By: #### L [id number] ####[facility] ([facility])[address] [place] [address] Potassium [Moles/Vol] 3.6 mmol/L Normal 3.5-5.1 [facility] Comment on above: Performed By: #### L [id number] ####[facility] ([facility])[address] [place] [address] Sodium [Moles/Vol] 133 mmol/L Low 136-145 [facility] Comment on above: Performed By: #### L [id number] ####[facility] ([facility])[address] [place] [address] Urea nitrogen [Mass/Vol] 9 mg/dL Normal 7-25 [facility] Comment on above: Performed By: #### L [id number] ####[facility] ([facility])[address] [place] [address] UREA NITROGEN/CREATININE (MASS RATIO) IN SER/PLAS 10.1 Normal [facility] Comment on above: Performed By: #### L [id number] ####[facility] ([facility])[address] [place] [address] CBCon 07-01-2023 Erythrocyte distribution width (RBC) [Ratio] 15.3 % High 11.5-15.0 [facility] Comment on above: Performed By: #### L [id number] ####[facility] ([facility])[address] [place] [address] ERYTHROCYTE MEAN CORPUSCULAR HEMOGLOBIN CONCENTRATION (G/DL) BY AUTOMATED 33.1 g/dL Normal 32.0-35.0 [facility] Comment on above: Performed By: #### L [id number] ####[facility] ([facility])[address] [place] [address] Hematocrit (Bld) [Volume fraction] 24.2 % Low 39.0-55.0 [facility] Comment on above: Performed By: #### L [id number] ####[facility] ([facility])[address] [place] [address] Hemoglobin (Bld) [Mass/Vol] 8.0 g/dL Low 13.0-17.0 [facility] Comment on above: Performed By: #### L [id number] ####[facility] ([facility])[address] [place] [address] MCH (RBC) [Entitic mass] 29.1 pg Normal 27.0-33.0 [facility] Comment on above: Performed By: #### L [id number] ####[facility] ([facility])[address] [place] [address] MCV (RBC) [Entitic vol] 88.0 fL Normal 82.0-98.0 [facility] Comment on above: Performed By: #### L [id number] ####[facility] ([facility])[address] [place] [address] PLATELETS (10*3/UL) IN BLOOD AUTOMATED COUNT 218 10*3/uL Normal 150-400 [facility] Comment on above: Performed By: #### L [id number] ####[facility] ([facility])[address] [place] [address] RBC (Bld) [#/Vol] 2.75 10*6/uL Low 4.20-5.70 [facility] Comment on above: Performed By: #### L [id number] ####[facility] ([facility])[address] [place] [address] WBC (Bld) [#/Vol] 4.96 10*3/uL Normal 4.00-10.60 [facility] Comment on above: Performed By: #### L [id number] ####[facility] ([facility])[address] [place] [address] CONSULTon 07-01-2023 CONSULT Normal [facility] MAGNESIUMon 07-01-2023 Magnesium [Mass/Vol] 2.0 mg/dL Normal 1.9-2.7 [facility] Comment on above: Performed By: #### L [id number] ####[facility] ([facility])[address] [place] [address] POCT GLUCOSE METER UNSOLICIT ED RESULTSon 07-01-2023 Glucose [Mass/Vol] 128 mg/dL High 70-105 [facility] Comment on above: Order Comment: Waive d Testing in the ED is performed under the ED CLIA certificate #[id number]. Result Comment: [email or web address] Performed By: #### L [id number] ####[facility] ([facility])[address] [place] [address] Glucose [Mass/Vol] 119 mg/dL High 70-105 [facility] Comment on above: Order Comment: Waive d Testing in the ED is performed under the ED CLIA certificate #[id number]. Result Comment: [email or web address] Performed By: #### L [id number] ####[facility] ([facility])[address] [place] [address] Glucose [Mass/Vol] 151 mg/dL High 70-105 [facility] Comment on above: Order Comment: Waive d Testing in the ED is performed under the ED CLIA certificate #[id number]. Result Comment: [email or web address] Performed By: #### L [id number] ####[facility] ([facility])[address] [place] [address] Glucose [Mass/Vol] 119 mg/dL High 70-105 [facility] Comment on above: Order Comment: Waive d Testing in the ED is performed under the ED CLIA certificate #[id number]. Result Comment: [email or web address] Performed By: #### L [id number] ####[facility] ([facility])[address] [place] [address] Glucose [Mass/Vol] 121 mg/dL High 70-105 [facility] Comment on above: Order Comment: Waive d Testing in the ED is performed under the ED CLIA certificate #[id number]. Result Comment: [email or web address] Performed By: #### L [id number] ####[facility] ([facility])[address] [address] PROTIME-INRon 07-01-2023 INR IN PPP BY COAGULATION ASSAY 1.37 High 0.90-1.10 [facility] Comment on above: Result Comment: ACCC P [...] CHEST 1995;108:231S-246S. Performed By: #### L [id number] ####[facility] ([facility])[address] [address] PROTHROMBIN TIME (PT) IN PPP BY COAGULATION ASSAY 16.9 Seconds High 12.3-14.8 [facility] Comment on above: Performed By: #### L [id number] ####[facility] ([facility])[address] [place] [address] 30on 06-30-2023 30 Normal [facility] ANTI-XA (HEPARIN LEVEL)on HEPARIN UNFRACTIONATED (U/ML) IN PPP BY CHROMOGENIC METHOD 0.39 IU/mL Normal 0.3-0.7 [facility] Comment on above: Result Comment: Sofy roxaban and Apixaban will interfere with the anti Xa assay used to monitor UFH and LMWH. Performed By: #### L [id number] ####[facility] ([facility])[address] [place] [address] BASIC METABOLIC PANELon 06-01 Anion gap [Moles/Vol] 11 mmol/L Normal 7-20 [facility] Comment on above: Performed By: #### L [id number] ####[facility] ([facility])[address] [place] [address] Calcium [Mass/Vol] 8.9 mg/dL Normal 8.6-10.3 [facility] Comment on above: Performed By: #### L [id number] ####[facility] ([facility])[address] [place] [address] Chloride [Moles/Vol] 96 mmol/L Low 98-107 [facility] Comment on above: Performed By: #### L [id number] ####[facility] ([facility])[address] [place] [address] CO2 [Moles/Vol] 30 mmol/L Normal - [facility] Comment on above: Performed By: #### L [id number] ####[facility] ([facility])[address] [place] [address] Creatinine [Mass/Vol] 0.78 mg/dL Normal 0.70-1.30 [facility] Comment on above: Performed By: #### L [id number] ####[facility] ([facility])[address] [place] [address] GLOMERULAR FILTRATION RATE ML/MIN/1.73 SQ M.PREDICTED 108.6 mL/min/1.73m*2 Normal >60.0 [facility] Comment on above: Result Comment: The [facility]???s estimated glomerular filtration rate (eGFR) will no [...] of individuals. Performed By: #### L [id number] ####[facility] ([facility])[address] [place] [address] Glucose [Mass/Vol] 108 mg/dL High 70-100 [facility] Comment on above: Performed By: #### L [id number] ####[facility] ([facility])[address] [place] [address] Potassium [Moles/Vol] 3.9 mmol/L Normal 3.5-5.1 [facility] Comment on above: Performed By: #### L [id number] ####[facility] ([facility])[address] [place] [address] Sodium [Moles/Vol] 133 mmol/L Low 136-145 [facility] Comment on above: Performed By: #### L [id number] ####[facility] ([facility])[address] [place] [address] Urea nitrogen [Mass/Vol] 9 mg/dL Normal 7-25 [facility] Comment on above: Performed By: #### L [id number] ####[facility] ([facility])[address] [place] [address] UREA NITROGEN/CREATININE (MASS RATIO) IN SER/PLAS 11.5 Normal [facility] Comment on above: Performed By: #### L [id number] ####[facility] ([facility])[address] [place] [address] CBCon 06-30-2023 Erythrocyte distribution width (RBC) [Ratio] 15.4 % High 11.5-15.0 [facility] Comment on above: Performed By: #### L [id number] ####[facility] ([facility])[address] [place] [address] ERYTHROCYTE MEAN CORPUSCULAR HEMOGLOBIN CONCENTRATION (G/DL) BY AUTOMATED 33.6 g/dL Normal 32.0-35.0 [facility] Comment on above: Performed By: #### L [id number] ####[facility] ([facility])[address] [place] [address] Hematocrit (Bld) [Volume fraction] 24.4 % Low 39.0-55.0 [facility] Comment on above: Performed By: #### L [id number] ####[facility] ([facility])[address] [place] [address] Hemoglobin (Bld) [Mass/Vol] 8.2 g/dL Low 13.0-17.0 [facility] Comment on above: Performed By: #### L [id number] ####[facility] ([facility])[address] [place] [address] MCH (RBC) [Entitic mass] 28.9 pg Normal 27.0-33.0 [facility] Comment on above: Performed By: #### L [id number] ####[facility] ([facility])[address] [place] [address] MCV (RBC) [Entitic vol] 85.9 fL Normal 82.0-98.0 [facility] Comment on above: Performed By: #### L [id number] ####[facility] ([facility])[address] [place] [address] PLATELETS (10*3/UL) IN BLOOD AUTOMATED COUNT 203 10*3/uL Normal 150-400 [facility] Comment on above: Performed By: #### L [id number] ####[facility] ([facility])[address] [place] [address] RBC (Bld) [#/Vol] 2.84 10*6/uL Low 4.20-5.70 [facility] Comment on above: Performed By: #### L [id number] ####[facility] ([facility])[address] [place] [address] WBC (Bld) [#/Vol] 6.03 10*3/uL Normal 4.00-10.60 [facility] Comment on above: Performed By: #### L [id number] ####[facility] ([facility])[address] [place] [address] CKon 06-30-2023 CREATINE KINASE (U/L) IN SER/PLAS 144.0 U/L Normal 30.0-223.0 [facility] Comment on above: Performed By: #### L [id number] ####[facility] ([facility])[address] [place] [address] MAGNESIUMon 06-30-2023 Magnesium [Mass/Vol] 2.1 mg/dL Normal 1.9-2.7 [facility] Comment on above: Performed By: #### L [id number] ####[facility] ([facility])[address] [place] [address] Magnesium [Mass/Vol] 2.2 mg/dL Normal 1.9-2.7 [facility] Comment on above: Performed By: #### L [id number] ####[facility] ([facility])[address] [place] [address] POCT GLUCOSE METER UNSOLICIT ED RESULTSon 06-30-2023 Glucose [Mass/Vol] 243 mg/dL High 70-105 [facility] Comment on above: Order Comment: Waive d Testing in the ED is performed under the ED CLIA certificate #[id number]. Result Comment: [email or web address] Performed By: #### L [id number] ####[facility] ([facility])[address] [place] [address] Glucose [Mass/Vol] 112 mg/dL High 70-105 [facility] Comment on above: Order Comment: Waive d Testing in the ED is performed under the ED CLIA certificate #[id number]. Result Comment: [email or web address] Performed By: #### L [id number] ####[facility] ([facility])[address] [place] [address] Glucose [Mass/Vol] 124 mg/dL High 70-105 [facility] Comment on above: Order Comment: Waive d Testing in the ED is performed under the ED CLIA certificate #[id number]. Result Comment: [email or web address] Performed By: #### L [id number] ####[facility] ([facility])[address] [place] [address] Glucose [Mass/Vol] 158 mg/dL High 70-105 [facility] Comment on above: Order Comment: Waive d Testing in the ED is performed under the ED CLIA certificate #[id number]. Result Comment: [email or web address] Performed By: #### L [id number] ####[facility] ([facility])[address] [place] [address] POTASSIUMon 06-30-2023 Potassium [Moles/Vol] 4.0 mmol/L Normal 3.5-5.1 [facility] Comment on above: Performed By: #### L [id number] ####[facility] ([facility])[address] [facility] [facility] [address] PROTIME-INRon 06-30-2023 INR IN PPP BY COAGULATION ASSAY 1.21 High 0.90-1.10 [facility] Comment on above: Result Comment: ACCC P [...] CHEST 1995;108:231S-246S. Performed By: #### L [id number] ####[facility] ([facility])[address] [place] [address] PROTHROMBIN TIME (PT) IN PPP BY COAGULATION ASSAY 15.4 Seconds High 12.3-14.8 [facility] Comment on above: Performed By: #### L [id number] ####[facility] ([facility])[address] [place] [place] [address] 30on 06-29-2023 30 Normal [facility] 30 Normal [facility] ANTI-XA (HEPARIN LEVEL)on HEPARIN UNFRACTIONATED (U/ML) IN PPP BY CHROMOGENIC METHOD 0.30 IU/mL Normal 0.3-0.7 [facility] Comment on above: Result Comment: Amelia roxaban and Apixaban will interfere with the anti Xa assay used to monitor UFH and LMWH. Performed By: #### L [id number] ####[facility] ([facility])[address] [place] [address] HEPARIN UNFRACTIONATED (U/ML) IN PPP BY CHROMOGENIC METHOD 0.31 IU/mL Normal 0.3-0.7 [facility] Comment on above: Result Comment: Sofy roxaban and Apixaban will interfere with the anti Xa assay used to monitor UFH and LMWH. Performed By: #### L [id number] ####[facility] ([facility])[address] [place] [place] [address] BASIC METABOLIC PANELon 06-01 Anion gap [Moles/Vol] 10 mmol/L Normal 7-20 [facility] Comment on above: Performed By: #### L [id number] ####[facility] ([facility])[address] [place] [place] [address] Calcium [Mass/Vol] 8.3 mg/dL Low 8.6-10.3 [facility] Comment on above: Performed By: #### L [id number] ####[facility] ([facility])[address] [place] [address] Chloride [Moles/Vol] 96 mmol/L Low 98-107 [facility] Comment on above: Performed By: #### L [id number] ####[facility] ([facility])[address] [place] [address] CO2 [Moles/Vol] 29 mmol/L Normal 21-31 [facility] Comment on above: Performed By: #### L [id number] ####[facility] ([facility])[address] [place] [address] Creatinine [Mass/Vol] 0.74 mg/dL Normal 0.70-1.30 [facility] Comment on above: Performed By: #### L [id number] ####[facility] ([facility])[address] [place] [address] GLOMERULAR FILTRATION RATE ML/MIN/1.73 SQ M.PREDICTED 110.4 mL/min/1.73m*2 Normal >60.0 [facility] Comment on above: Result Comment: The [facility]???s estimated glomerular filtration rate (eGFR) will no [...] of individuals. Performed By: #### L [id number] ####[facility] ([facility])[address] [place] [address] Glucose [Mass/Vol] 107 mg/dL High 70-100 [facility] Comment on above: Performed By: #### L [id number] ####[facility] ([facility])[address] [place] [address] Potassium [Moles/Vol] 4.3 mmol/L Normal 3.5-5.1 [facility] Comment on above: Performed By: #### L [id number] ####[facility] ([facility])[address] [place] [address] Sodium [Moles/Vol] 131 mmol/L Low 136-145 [facility] Comment on above: Performed By: #### L [id number] ####[facility] ([facility])[address] [place] [address] Urea nitrogen [Mass/Vol] 9 mg/dL Normal 7-25 [facility] Comment on above: Performed By: #### L [id number] ####[facility] ([facility])[address] [place] [address] UREA NITROGEN/CREATININE (MASS RATIO) IN SER/PLAS 12.2 Normal [facility] Comment on above: Performed By: #### L [id number] ####[facility] ([facility])[address] [place] [address] CBCon 06-29-2023 Erythrocyte distribution width (RBC) [Ratio] 15.8 % High 11.5-15.0 [facility] Comment on above: Performed By: #### L [id number] ####[facility] ([facility])[address] [place] [address] ERYTHROCYTE MEAN CORPUSCULAR HEMOGLOBIN CONCENTRATION (G/DL) BY AUTOMATED 33.6 g/dL Normal 32.0-35.0 [facility] Comment on above: Performed By: #### L [id number] ####[facility] ([facility])[address] [place] [address] Hematocrit (Bld) [Volume fraction] 23.5 % Low 39.0-55.0 [facility] Comment on above: Performed By: #### L [id number] ####[facility] ([facility])[address] [place] [address] Hemoglobin (Bld) [Mass/Vol] 7.9 g/dL Low 13.0-17.0 [facility] Comment on above: Performed By: #### L [id number] ####[facility] ([facility])[address] [place] [address] MCH (RBC) [Entitic mass] 29.5 pg Normal 27.0-33.0 [facility] Comment on above: Performed By: #### L [id number] ####[facility] ([facility])[address] [place] [address] MCV (RBC) [Entitic vol] 87.7 fL Normal 82.0-98.0 [facility] Comment on above: Performed By: #### L [id number] ####[facility] ([facility])[address] [place] [address] PLATELETS (10*3/UL) IN BLOOD AUTOMATED COUNT 161 10*3/uL Normal 150-400 [facility] Comment on above: Performed By: #### L [id number] ####[facility] ([facility])[address] [place] [address] RBC (Bld) [#/Vol] 2.68 10*6/uL Low 4.20-5.70 [facility] Comment on above: Performed By: #### L [id number] ####[facility] ([facility])[address] [place] [address] WBC (Bld) [#/Vol] 6.52 10*3/uL Normal 4.00-10.60 [facility] Comment on above: Performed By: #### L [id number] ####[facility] ([facility])[address] [place] [address] MAGNESIUMon 06-29-2023 Magnesium [Mass/Vol] 2.3 mg/dL Normal 1.9-2.7 [facility] Comment on above: Performed By: #### L [id number] ####[facility] ([facility])[address] [place] [address] Magnesium [Mass/Vol] 2.0 mg/dL Normal 1.9-2.7 [facility] Comment on above: Performed By: #### L [id number] ####[facility] ([facility])[address] [place] [address] NURSNOTEon 06-29-2023 NURSNOTE Normal [facility] PHOSPHORUSon 06-29-2023 Magnesium [Mass/Vol] 3.2 mg/dL Normal 2.5-5.0 [facility] Comment on above: Performed By: #### L [id number] ####[facility] ([facility])[address] [place] [address] POCT GLUCOSE METER UNSOLICIT ED RESULTSon 06-29-2023 Glucose [Mass/Vol] 129 mg/dL High 70-105 [facility] Comment on above: Order Comment: Waive d Testing in the ED is performed under the ED CLIA certificate #[id number]. Result Comment: [email or web address] Performed By: #### L [id number] ####[facility] ([facility])[address] [place] [address] Glucose [Mass/Vol] 108 mg/dL High 70-105 [facility] Comment on above: Order Comment: Waive d Testing in the ED is performed under the ED CLIA certificate #[id number]. Result Comment: [email or web address] Performed By: #### L [id number] ####[facility] ([facility])[address] [place] [address] Glucose [Mass/Vol] 142 mg/dL High 70-105 [facility] Comment on above: Order Comment: Waive d Testing in the ED is performed under the ED CLIA certificate #[id number]. Result Comment: [email or web address] Performed By: #### L [id number] ####[facility] ([facility])[address] [place] [address] Glucose [Mass/Vol] 136 mg/dL High 70-105 [facility] Comment on above: Order Comment: Waive d Testing in the ED is performed under the ED CLIA certificate #[id number]. Result Comment: [email or web address] Performed By: #### L [id number] ####[facility] ([facility])[address] [place] [address] POTASSIUMon 06-29-2023 Potassium [Moles/Vol] 4.3 mmol/L Normal 3.5-5.1 [facility] Comment on above: Performed By: #### L [id number] ####[facility] ([facility])[address] [place] [address] PROTIME-INRon 06-29-2023 INR IN PPP BY COAGULATION ASSAY 1.13 High 0.90-1.10 [facility] Comment on above: Result Comment: ACCC P [...] CHEST 1995;108:231S-246S. Performed By: #### L [id number] ####[facility] ([facility])[address] [place] [address] PROTHROMBIN TIME (PT) IN PPP BY COAGULATION ASSAY 14.5 Seconds Normal 12.3-14.8 [facility] Comment on above: Performed By: #### L [id number] ####[facility] ([facility])[address] [place] [address] 30on 06-28-2023 30 Normal [facility] 30 Normal [facility] ANTI-XA (HEPARIN LEVEL)on HEPARIN UNFRACTIONATED (U/ML) IN PPP BY CHROMOGENIC METHOD 0.25 IU/mL Low 0.3-0.7 [facility] Comment on above: Result Comment: Amelia roxaban and Apixaban will interfere with the anti Xa assay used to monitor UFH and LMWH. Performed By: #### L [id number] ####[facility] ([facility])[address] [place] [address] HEPARIN UNFRACTIONATED (U/ML) IN PPP BY CHROMOGENIC METHOD 0.16 IU/mL Invalid Interpretation Code 0.3-0.7 [facility] Comment on above: Result Comment: Amelia roxaban and Apixaban will interfere with the anti Xa assay used to monitor UFH and LMWH. Performed By: #### L [id number] ####[facility] ([facility])[address] [place] [address] HEPARIN UNFRACTIONATED (U/ML) IN PPP BY CHROMOGENIC METHOD <0.10 Invalid Interpretation Code 0.3-0.7 [facility] Comment on above: Order Comment: Check anti-Xa level every 6 hours while on heparin infusion, or per protocol. Result Comment: Amelia roxaban and Apixaban will interfere with the anti Xa assay used to monitor UFH and LMWH. Performed By: #### L [id number] ####[facility] ([facility])[address] [place] [address] APTTon 06-28-2023 ACTIVATED PARTIAL THROMBOPLASTIN TIME IN PPP BY COAGULATION ASSAY 31.5 Seconds Normal 25.0-35.0 [facility] Comment on above: Order Comment: Basel ine aPTT before initiating heparin infusion. Result Comment: Clin ical significance of the APTT is questionable in the presence of heparin. Performed By: #### L [id number] ####[facility] ([facility])[address] [place] [address] BASIC METABOLIC PANELon - Anion gap [Moles/Vol] 14 mmol/L Normal 7-20 [facility] Comment on above: Performed By: #### L [id number] ####[facility] ([facility])[address] [place] [address] Calcium [Mass/Vol] 8.1 mg/dL Low 8.6-10.3 [facility] Comment on above: Performed By: #### L [id number] ####[facility] ([facility])[address] [place] [address] Chloride [Moles/Vol] 95 mmol/L Low 98-107 [facility] Comment on above: Performed By: #### L [id number] ####[facility] ([facility])[address] [place] [address] CO2 [Moles/Vol] 25 mmol/L Normal 21-31 [facility] Comment on above: Performed By: #### L [id number] ####[facility] ([facility] [facility])[address] [place] [address] Creatinine [Mass/Vol] 0.69 mg/dL Low 0.70-1.30 [facility] Comment on above: Performed By: #### L [id number] ####[facility] ([facility])[address] [place] [address] GLOMERULAR FILTRATION RATE ML/MIN/1.73 SQ M.PREDICTED 112.7 mL/min/1.73m*2 Normal >60.0 [facility] Comment on above: Result Comment: The [facility]???s estimated glomerular filtration rate (eGFR) will no [...] of individuals. Performed By: #### L [id number] ####[facility] ([facility])[address] [place] [address] Glucose [Mass/Vol] 103 mg/dL High 70-100 [facility] Comment on above: Performed By: #### L [id number] ####[facility] ([facility])[address] [place] [address] Potassium [Moles/Vol] 3.9 mmol/L Normal 3.5-5.1 [facility] Comment on above: Performed By: #### L [id number] ####[facility] ([facility])[address] [place] [address] Sodium [Moles/Vol] 130 mmol/L Low 136-145 [facility] Comment on above: Performed By: #### L [id number] ####[facility] ([facility])[address] [place] [address] Urea nitrogen [Mass/Vol] 10 mg/dL Normal 7-25 [facility] Comment on above: Performed By: #### L [id number] ####[facility] ([facility])[address] [place] [address] UREA NITROGEN/CREATININE (MASS RATIO) IN SER/PLAS 14.5 Normal [facility] Comment on above: Performed By: #### L [id number] ####[facility] ([facility])[address] [place] [address] Anion gap [Moles/Vol] 8 mmol/L Normal 7-20 [facility] Comment on above: Performed By: #### L [id number] ####[facility] ([facility])[address] [place] [address] Calcium [Mass/Vol] 8.1 mg/dL Low 8.6-10.3 [facility] Comment on above: Performed By: #### L [id number] ####[facility] ([facility])[address] [place] [address] Chloride [Moles/Vol] 98 mmol/L Normal 98-107 [facility] Comment on above: Performed By: #### L [id number] ####[facility] ([facility])[address] [place] [address] CO2 [Moles/Vol] 29 mmol/L Normal 21-31 [facility] Comment on above: Performed By: #### L [id number] ####[facility] ([facility])[address] [place] [address] Creatinine [Mass/Vol] 0.73 mg/dL Normal 0.70-1.30 [facility] Comment on above: Performed By: #### L [id number] ####[facility] ([facility])[address] [place] [address] GLOMERULAR FILTRATION RATE ML/MIN/1.73 SQ M.PREDICTED 110.8 mL/min/1.73m*2 Normal >60.0 [facility] Comment on above: Result Comment: The [facility]???s estimated glomerular filtration rate (eGFR) will no [...] of individuals. Performed By: #### L [id number] ####[facility] ([facility])[address] [place] [address] Glucose [Mass/Vol] 118 mg/dL High 70-100 [facility] Comment on above: Performed By: #### L [id number] ####[facility] ([facility])[address] [place] [address] Potassium [Moles/Vol] 3.8 mmol/L Normal 3.5-5.1 [facility] Comment on above: Performed By: #### L [id number] ####[facility] ([facility])[address] [place] [address] Sodium [Moles/Vol] 131 mmol/L Low 136-145 [facility] Comment on above: Performed By: #### L [id number] ####[facility] ([facility])[address] [place] [address] Urea nitrogen [Mass/Vol] 10 mg/dL Normal 7-25 [facility] Comment on above: Performed By: #### L [id number] ####[facility] ([facility])[address] [place] [address] UREA NITROGEN/CREATININE (MASS RATIO) IN SER/PLAS 13.7 Normal [facility] Comment on above: Performed By: #### L [id number] ####[facility] ([facility])[address] [place] [address] CBCon 06-28-2023 Erythrocyte distribution width (RBC) [Ratio] 15.6 % High 11.5-15.0 [facility] Comment on above: Performed By: #### L [id number] ####[facility] ([facility])[address] [place] [address] ERYTHROCYTE MEAN CORPUSCULAR HEMOGLOBIN CONCENTRATION (G/DL) BY AUTOMATED 33.8 g/dL Normal 32.0-35.0 [facility] Comment on above: Performed By: #### L [id number] ####[facility] ([facility])[address] [place] [address] Hematocrit (Bld) [Volume fraction] 20.4 % Low 39.0-55.0 [facility] Comment on above: Performed By: #### L [id number] ####[facility] ([facility])[address] [place] [address] Hemoglobin (Bld) [Mass/Vol] 6.9 g/dL Low 13.0-17.0 [facility] Comment on above: Performed By: #### L [id number] ####[facility] ([facility])[address] [place] [address] IMMATURE PLATELET FRACTION % 5.6 % Normal 0.8-6.3 [facility] Comment on above: Performed By: #### L [id number] ####[facility] ([facility])[address] [place] [address] MCH (RBC) [Entitic mass] 29.5 pg Normal 27.0-33.0 [facility] Comment on above: Performed By: #### L [id number] ####[facility] ([facility])[address] [place] [address] MCV (RBC) [Entitic vol] 87.2 fL Normal 82.0-98.0 [facility] Comment on above: Performed By: #### L [id number] ####[facility] ([facility])[address] [place] [address] PLATELETS (10*3/UL) IN BLOOD AUTOMATED COUNT 127 10*3/uL Low 150-400 [facility] Comment on above: Performed By: #### L [id number] ####[facility] ([facility])[address] [place] [address] RBC (Bld) [#/Vol] 2.34 10*6/uL Low 4.20-5.70 [facility] Comment on above: Performed By: #### L [id number] ####[facility] ([facility])[address] [place] [address] WBC (Bld) [#/Vol] 6.57 10*3/uL Normal 4.00-10.60 [facility] Comment on above: Performed By: #### L [id number] ####[facility] ([facility])[address] [place] [address] CKon 06-28-2023 CREATINE KINASE (U/L) IN SER/PLAS 560.0 U/L High 30.0-223.0 [facility] Comment on above: Performed By: #### L [id number] ####[facility] ([facility])[address] [place] [address] CONSULTon 06-28-2023 CONSULT Normal [facility] MAGNESIUMon 06-28-2023 Magnesium [Mass/Vol] 1.9 mg/dL Normal 1.9-2.7 [facility] Comment on above: Performed By: #### L [id number] ####[facility] ([facility])[address] [place] [address] PLATELET COUNTon 03-29-2024 IMMATURE PLATELET FRACTION % 6.1 % Normal 0.8-6.3 [facility] Comment on above: Performed By: #### L [id number] ####[facility] ([facility])[address] [place] [address] PLATELETS (10*3/UL) IN BLOOD AUTOMATED COUNT 126 10*3/uL Low 150-400 [facility] Comment on above: Performed By: #### L [id number] ####[facility] ([facility])[address] [place] [address] POCT GLUCOSE METER UNSOLICIT ED RESULTSon 06-28-2023 Glucose [Mass/Vol] 95 mg/dL Normal 70-105 [facility] Comment on above: Order Comment: Waive d Testing in the ED is performed under the ED CLIA certificate #[id number]. Result Comment: [email or web address] Performed By: #### L [id number] ####[facility] ([facility])[address] [place] [address] Glucose [Mass/Vol] 118 mg/dL High 70-105 [facility] Comment on above: Order Comment: Waive d Testing in the ED is performed under the ED CLIA certificate #[id number]. Result Comment: [email or web address] gabo Performed By: #### L [id number] ####[facility] ([facility])[address] [place] [address] Glucose [Mass/Vol] 111 mg/dL High 70-105 [facility] Comment on above: Order Comment: Waive d Testing in the ED is performed under the ED CLIA certificate #[id number]. Result Comment: cgil lso Performed By: #### L [id number] ####[facility] ([facility])[address] [place] [address] Glucose [Mass/Vol] 160 mg/dL High 70-105 [facility] Comment on above: Order Comment: Waive d Testing in the ED is performed under the ED CLIA certificate #[id number]. Result Comment: [email or web address] Performed By: #### L [id number] ####[facility] ([facility])[address] [address] PROTIME-INRon 06-28-2023 INR IN PPP BY COAGULATION ASSAY 1.16 High 0.90-1.10 [facility] Comment on above: Result Comment: ACCC P [...] CHEST 1995;108:231S-246S. Performed By: #### L [id number] ####[facility])[address] [place] [address] PROTHROMBIN TIME (PT) IN PPP BY COAGULATION ASSAY 14.8 Seconds Normal 12.3-14.8 [facility] Comment on above: Performed By: #### L [id number] ####[facility])[address] [address] 30on 06-27-2023 30 Normal [facility] 30 Normal [facility] APTTon 06-27-2023 ACTIVATED PARTIAL THROMBOPLASTIN TIME IN PPP BY COAGULATION ASSAY 35.5 Seconds High 25.0-35.0 [facility] Comment on above: Result Comment: Clin ical significance of the APTT is questionable in the presence of heparin. Performed By: #### L [id number] ####[facility] ([facility])[address] [place] [address] BASIC METABOLIC PANELon 03-2 Anion gap [Moles/Vol] 9 mmol/L Normal 7-20 [facility] Comment on above: Performed By: #### L [id number] ####[facility] ([facility])[address] [place] [address] Calcium [Mass/Vol] 8.3 mg/dL Low 8.6-10.3 [facility] Comment on above: Performed By: #### L [id number] ####[facility] ([facility])[address] [place] [address] Chloride [Moles/Vol] 104 mmol/L Normal 98-107 [facility] Comment on above: Performed By: #### L [id number] ####[facility] ([facility])[address] [place] [address] CO2 [Moles/Vol] 26 mmol/L Normal 21-31 [facility] Comment on above: Performed By: #### L [id number] ####[facility] ([facility])[address] [place] [address] Creatinine [Mass/Vol] 0.78 mg/dL Normal 0.70-1.30 [facility] Comment on above: Performed By: #### L [id number] ####[facility] ([facility])[address] [place] [address] GLOMERULAR FILTRATION RATE ML/MIN/1.73 SQ M.PREDICTED 108.6 mL/min/1.73m*2 Normal >60.0 [facility] Comment on above: Result Comment: The [facility]???s estimated glomerular filtration rate (eGFR) will no [...] of individuals. Performed By: #### L [id number] ####[facility] ([facility])[address] [place] [address] Glucose [Mass/Vol] 117 mg/dL High 70-100 [facility] Comment on above: Performed By: #### L [id number] ####[facility] ([facility])[address] [place] [address] Potassium [Moles/Vol] 4.9 mmol/L Normal 3.5-5.1 [facility] Comment on above: Performed By: #### L [id number] ####[facility] ([facility])[address] [place] [address] Sodium [Moles/Vol] 134 mmol/L Low 136-145 [facility] Comment on above: Performed By: #### L [id number] ####[facility] ([facility])[address] [place] [address] Urea nitrogen [Mass/Vol] 10 mg/dL Normal 7-25 [facility] Comment on above: Performed By: #### L [id number] ####[facility] ([facility])[address] [place] [address] UREA NITROGEN/CREATININE (MASS RATIO) IN SER/PLAS 12.8 Normal [facility] Comment on above: Performed By: #### L [id number] ####[facility] ([facility])[address] [place] [address] CBCon 06-27-2023 Erythrocyte distribution width (RBC) [Ratio] 15.9 % High 11.5-15.0 [facility] Comment on above: Performed By: #### L [id number] ####[facility] ([facility])[address] [place] [address] ERYTHROCYTE MEAN CORPUSCULAR HEMOGLOBIN CONCENTRATION (G/DL) BY AUTOMATED 34.4 g/dL Normal 32.0-35.0 [facility] Comment on above: Performed By: #### L [id number] ####[facility] ([facility])[address] [place] [address] Hematocrit (Bld) [Volume fraction] 21.8 % Low 39.0-55.0 [facility] Comment on above: Performed By: #### L [id number] ####[facility] ([facility])[address] [place] [address] Hemoglobin (Bld) [Mass/Vol] 7.5 g/dL Low 13.0-17.0 [facility] Comment on above: Performed By: #### L [id number] ####[facility] ([facility])[address] [place] [address] IMMATURE PLATELET FRACTION % 4.8 % Normal 0.8-6.3 [facility] Comment on above: Performed By: #### L [id number] ####[facility] ([facility])[address] [place] [address] MCH (RBC) [Entitic mass] 30.2 pg Normal 27.0-33.0 [facility] Comment on above: Performed By: #### L [id number] ####[facility] ([facility])[address] [place] [address] MCV (RBC) [Entitic vol] 87.9 fL Normal 82.0-98.0 [facility] Comment on above: Performed By: #### L [id number] ####[facility] ([facility])[address] [place] [address] PLATELETS (10*3/UL) IN BLOOD AUTOMATED COUNT 116 10*3/uL Low 150-400 [facility] Comment on above: Performed By: #### L [id number] ####[facility] ([facility])[address] [place] [address] RBC (Bld) [#/Vol] 2.48 10*6/uL Low 4.20-5.70 [facility] Comment on above: Performed By: #### L [id number] ####[facility] ([facility])[address] [place] [address] WBC (Bld) [#/Vol] 5.34 10*3/uL Normal 4.00-10.60 [facility] Comment on above: Performed By: #### L [id number] ####[facility] ([facility])[address] [place] [address] CONSULTon 06-27-2023 CONSULT Normal [facility] MAGNESIUMon 06-27-2023 Magnesium [Mass/Vol] 2.0 mg/dL Normal 1.9-2.7 [facility] Comment on above: Performed By: #### L [id number] ####[facility] ([facility])[address] [place] [address] PHOSPHORUSon 06-27-2023 Magnesium [Mass/Vol] 4.2 mg/dL Normal 2.5-5.0 [facility] Comment on above: Performed By: #### L [id number] ####[facility] ([facility])[address] [place] [address] POCT GLUCOSE METER UNSOLICIT ED RESULTSon 06-27-2023 Glucose [Mass/Vol] 154 mg/dL High 70-105 [facility] Comment on above: Order Comment: Waive d Testing in the ED is performed under the ED CLIA certificate #[id number]. Result Comment: mer jha Performed By: #### L [id number] ####[facility] ([facility])[address] [place] [address] Glucose [Mass/Vol] 114 mg/dL High 70-105 [facility] Comment on above: Order Comment: Waive d Testing in the ED is performed under the ED CLIA certificate #[id number]. Result Comment: mer jha Performed By: #### L [id number] ####[facility] ([facility])[address] [place] [address] Glucose [Mass/Vol] 108 mg/dL High 70-105 [facility] Comment on above: Order Comment: Waive d Testing in the ED is performed under the ED CLIA certificate #[id number]. Result Comment: mer jha Performed By: #### L [id number] ####[facility] ([facility])[address] [place] [address] Glucose [Mass/Vol] 112 mg/dL High 70-105 [facility] Comment on above: Order Comment: Waive d Testing in the ED is performed under the ED CLIA certificate #[id number]. Result Comment: mmcc gabo Performed By: #### L [id number] ####[facility] ([facility])[address] [place] [address] Glucose [Mass/Vol] 111 mg/dL High 70-105 [facility] Comment on above: Order Comment: Waive d Testing in the ED is performed under the ED CLIA certificate #[id number]. Result Comment: mmcc gabo Performed By: #### L [id number] ####[facility] ([facility])[address] [place] [address] Glucose [Mass/Vol] 120 mg/dL High 70-105 [facility] Comment on above: Order Comment: Waive d Testing in the ED is performed under the ED CLIA certificate #[id number]. Result Comment: mmcc gabo Performed By: #### L [id number] ####[facility] ([facility])[address] [place] [address] Glucose [Mass/Vol] 128 mg/dL High 70-105 [facility] Comment on above: Order Comment: Waive d Testing in the ED is performed under the ED CLIA certificate #[id number]. Result Comment: mmcc gabo Performed By: #### L [id number] ####[facility] ([facility])[address] [place] [address] PROTIME-INRon 06-27-2023 INR IN PPP BY COAGULATION ASSAY 1.30 High 0.90-1.10 [facility] Comment on above: Order Comment: On ar [...] CHEST 1995;108:231S-246S. Performed By: #### L [id number] ####[facility] ([facility])[address] [place] [address] PROTHROMBIN TIME (PT) IN PPP BY COAGULATION ASSAY 16.3 Seconds High 12.3-14.8 [facility] Comment on above: Order Comment: On ar rival to SICU Performed By: #### L [id number] ####[facility] ([facility])[address] [place] [place] [address] 30on 06-26-2023 30 Normal [facility] 30 Normal [facility] 30 Normal [facility] ANESon 06-26-2023 ANES Normal [facility] APTTon 06-26-2023 ACTIVATED PARTIAL THROMBOPLASTIN TIME IN PPP BY COAGULATION ASSAY 30.1 Seconds Normal 25.0-35.0 [facility] Comment on above: Result Comment: Clin ical significance of the APTT is questionable in the presence of heparin. Performed By: #### L [id number] ####[facility])[address] [place] [address] ACTIVATED PARTIAL THROMBOPLASTIN TIME IN PPP BY COAGULATION ASSAY 29.1 Seconds Normal 25.0-35.0 [facility] Comment on above: Order Comment: Pre-o p diagnosis:Aortic valve disorder [I35.9] Result Comment: Clin ical significance of the APTT is questionable in the presence of heparin. Performed By: #### L [id number] ####[facility] ([facility])[address] [place] [address] ACTIVATED PARTIAL THROMBOPLASTIN TIME IN PPP BY COAGULATION ASSAY 31.8 Seconds Normal 25.0-35.0 [facility] Comment on above: Result Comment: Clin ical significance of the APTT is questionable in the presence of heparin. Performed By: #### L [id number] ####[facility] ([facility])[address] [place] [place] [address] ARTERIAL BLOOD GAS WITH IONI ZED CALCIUMon 06-26-2023 Base excess Calc (Bld) [Moles/Vol] -3.3000 mmol/L Low -2.0-3.0 [facility] Comment on above: Performed By: #### L [id number] ####[facility] [id number] [place] [address] [place] CALCIUM IONIZED (MMOL/L) IN BLOOD 1.09 mmol/L Low 1.15-1.33 [facility] Comment on above: Performed By: #### L [id number] ####[facility] [id number] [place] [address] [place] CO2 (Bld) [Partial pressure] 35 mm[Hg] Normal 35-48 [facility] Comment on above: Performed By: #### L [id number] ####[facility] RESP[facility] [id number] [place] [address] [place] FIO2 40 % Normal [facility] Comment on above: Performed By: #### L [id number] ####[facility] RESP[facility] [id number] [place] [address] [place] HCO3 (Bld) [Moles/Vol] 21.2 mmol/L Normal 21.0-28.0 [facility] Comment on above: Performed By: #### L [id number] ####[facility] RESPIR[facility] [id number] [place] [address] [place] Oxygen (Bld) [Partial pressure] 118 mm[Hg] High 83-100 [facility] Comment on above: Performed By: #### L [id number] ####[facility] RESP[facility] [id number] [place] [address] [facility] OXYGEN SATURATION (%) IN ARTERIAL BLOOD 98.8 % High 94.0-98.0 [facility] Comment on above: Performed By: #### L [id number] ####[facility] RESPIR[facility] [id number] [place] [address] [facility] PEEP 6 cmH2O Normal [facility] Comment on above: Performed By: #### L [id number] ####[facility] RESPIRATORY [id number] [place] [address] [facility] pH (Bld) 7.39 [pH] Normal 7.35-7.45 [facility] Comment on above: Performed By: #### L [id number] ####[facility] RESPIRATORY [id number] [place], [place] [address] PRESSURE SUPPORT [address] [facility] Comment on above: Performed By: #### L [id number] ####[facility] RESPIRATORY [id number] [place], [place] [address] SOURCE OF OXYGEN Bi-PAP Normal [facility] Comment on above: Performed By: #### L [id number] ####[facility] RESPIRAT[facility] [id number] [place] [address] [facility] Base excess Calc (Bld) [Moles/Vol] -5.8000 mmol/L Low -2.0-3.0 [facility] Comment on above: Performed By: #### L [id number] ####[facility] RESPIRATORY [id number] [place] [address] [facility] CALCIUM IONIZED (MMOL/L) IN BLOOD 1.19 mmol/L Normal 1.15-1.33 [facility] Comment on above: Performed By: #### L [id number] ####[facility] RESPIRAT[facility] [id number] [place] [address] [facility] CO2 (Bld) [Partial pressure] 44 mm[Hg] Normal 35-48 [facility] Comment on above: Performed By: #### L [id number] ####[facility] RESPIRATORY [id number] FIO2 40 % Normal [facility] Comment on above: Performed By: #### L [id number] ####[facility] RESPIRAT[facility] [id number] HCO3 (Bld) [Moles/Vol] 20.7 mmol/L Low 21.0-28.0 [facility] Comment on above: Performed By: #### L [id number] ####[facility] RESPIRATORY [id number] Oxygen (Bld) [Partial pressure] 102 mm[Hg] High 83-100 [facility] Comment on above: Performed By: #### L [id number] ####[facility] RESPIRATORY [id number] [place] [address] OXYGEN SATURATION (%) IN ARTERIAL BLOOD 99.5 % High 94.0-98.0 [facility] Comment on above: Performed By: #### L [id number] ####[facility] RESPIRATORY [id number] PEEP 6 cmH2O Normal [facility] Comment on above: Performed By: #### L [id number] ####[facility] RESPIRATORY [id number] pH (Bld) 7.28 [pH] Low 7.35-7.45 [facility] Comment on above: Performed By: #### L [id number] ####[facility] RESPIRATORY [id number] [place] [address] PRESSURE SUPPORT [address] [facility] Comment on above: Performed By: #### L [id number] ####[facility] RESPIRATORY [id number] SOURCE OF OXYGEN Bi-PAP Normal [facility] Comment on above: Performed By: #### L [id number] ####[facility] RESPIRATORY [id number] [place] [address] BASIC METABOLIC PANELon 03-2 Anion gap [Moles/Vol] 10 mmol/L Normal 10-18 [facility] Comment on above: Performed By: #### L [id number] ####[facility] HOSP[facility] LAB (BEAKER)[address] [place] [address] Calcium [Mass/Vol] 8.1 mg/dL Low 8.6-10.3 [facility] Comment on above: Performed By: #### L [id number] ####[facility] LAB (BEAKER)[address] [place] [address] Chloride [Moles/Vol] 108 mmol/L High 98-107 [facility] Comment on above: Performed By: #### L [id number] ####[facility] LAB (BEAKER)[address] [place] [address] CO2 [Moles/Vol] 24 mmol/L Normal 21-31 [facility] Comment on above: Performed By: #### L [id number] ####[facility] LAB ([facility])[address] [place] [address] Creatinine [Mass/Vol] 0.72 mg/dL Normal 0.70-1.30 [facility] Comment on above: Performed By: #### L [id number] ####[facility] LAB ([facility])[address] [place] [address] GLOMERULAR FILTRATION RATE ML/MIN/1.73 SQ M.PREDICTED 111.3 mL/min/1.73m*2 Normal >60.0 [facility] Comment on above: Result Comment: The [facility]???s estimated glomerular filtration rate (eGFR) will no [...] of individuals. Performed By: #### L [id number] ####[facility] LAB (BEAKER)[address] [place] [address] Glucose [Mass/Vol] 151 mg/dL High 70-100 [facility] Comment on above: Performed By: #### L [id number] ####[facility] LAB ([facility])[address] [place] [address] Potassium [Moles/Vol] 4.1 mmol/L Normal 3.5-5.1 [facility] Comment on above: Performed By: #### L [id number] ####[facility] LAB ([facility])[address] [place] [address] Sodium [Moles/Vol] 138 mmol/L Normal 136-145 [facility] Comment on above: Performed By: #### L [id number] ####[facility] LAB ([facility])[address] [place] [address] Urea nitrogen [Mass/Vol] 11 mg/dL Normal 7-25 [facility] Comment on above: Performed By: #### L [id number] ####[facility] LAB ([facility])[address] [place] [address] UREA NITROGEN/CREATININE (MASS RATIO) IN SER/PLAS 15.3 Normal [facility] Comment on above: Performed By: #### L [id number] ####[facility] LAB ([facility])[address] [place] [address] Anion gap [Moles/Vol] 14 mmol/L Normal 7-20 [facility] Comment on above: Order Comment: Pre-o p diagnosis:Aortic valve disorder [I35.9] Performed By: #### L [id number] ####[facility] LAB ([facility])[address] [place] [address] Calcium [Mass/Vol] 7.9 mg/dL Low 8.6-10.3 [facility] Comment on above: Order Comment: Pre-o p diagnosis:Aortic valve disorder [I35.9] Performed By: #### L [id number] ####[facility] LAB ([facility])[address] [place] [address] Chloride [Moles/Vol] 107 mmol/L Normal 98-107 [facility] Comment on above: Order Comment: Pre-o p diagnosis:Aortic valve disorder [I35.9] Performed By: #### L [id number] ####[facility] LAB ([facility])[address] [facility] [address] CO2 [Moles/Vol] 21 mmol/L Normal 21-31 [facility] Comment on above: Order Comment: Pre-o p diagnosis:Aortic valve disorder [I35.9] Performed By: #### L [id number] ####[facility] LAB ([facility])[address] [facility] [address] Creatinine [Mass/Vol] 0.76 mg/dL Normal 0.70-1.30 [facility] Comment on above: Order Comment: Pre-o p diagnosis:Aortic valve disorder [I35.9] Performed By: #### L [id number] ####[facility] LAB ([facility])[address] [place] [address] GLOMERULAR FILTRATION RATE ML/MIN/1.73 SQ M.PREDICTED 109.5 mL/min/1.73m*2 Normal >60.0 [facility] Comment on above: Order Comment: Pre-o p diagnosis:Aortic valve disorder [I35.9] Result Comment: The [facility]???s estimated glomerular filtration rate (eGFR) will no [...] of individuals. Performed By: #### L [id number] ####[facility] LAB ([facility])[address] [facility] [place] [address] Glucose [Mass/Vol] 194 mg/dL High 70-100 [facility] Comment on above: Order Comment: Pre-o p diagnosis:Aortic valve disorder [I35.9] Performed By: #### L [id number] ####[facility] ([facility])[address] [place] [address] Potassium [Moles/Vol] 3.9 mmol/L Normal 3.5-5.1 [facility] Comment on above: Order Comment: Pre-o p diagnosis:Aortic valve disorder [I35.9] Performed By: #### L [id number] ####[facility] LAB ([facility])[address] [place] [address] Sodium [Moles/Vol] 138 mmol/L Normal 136-145 [facility] Comment on above: Order Comment: Pre-o p diagnosis:Aortic valve disorder [I35.9] Performed By: #### L [id number] ####[facility] LAB ([facility])[address] [place] [address] Urea nitrogen [Mass/Vol] 11 mg/dL Normal 7-25 [facility] Comment on above: Order Comment: Pre-o p diagnosis:Aortic valve disorder [I35.9] Performed By: #### L [id number] ####[facility] LAB ([facility])[address] [place] [address] UREA NITROGEN/CREATININE (MASS RATIO) IN SER/PLAS 14.5 Normal [facility] Comment on above: Order Comment: Pre-o p diagnosis:Aortic valve disorder [I35.9] Performed By: #### L [id number] ####[facility] LAB ([facility])[address] [place] [address] CBCon 06-26-2023 Erythrocyte distribution width (RBC) [Ratio] 15.5 % High 11.5-15.0 [facility] Comment on above: Performed By: #### L [id number] ####[facility] LAB ([facility])[address] [place] [address] ERYTHROCYTE MEAN CORPUSCULAR HEMOGLOBIN CONCENTRATION (G/DL) BY AUTOMATED 34.0 g/dL Normal 32.0-35.0 [facility] Comment on above: Performed By: #### L [id number] ####[facility] LAB ([facility])[address] [place] [address] Hematocrit (Bld) [Volume fraction] 29.4 % Low 39.0-55.0 [facility] Comment on above: Performed By: #### L [id number] ####[facility] LAB ([facility])[address] [place] [address] Hemoglobin (Bld) [Mass/Vol] 10.0 g/dL Low 13.0-17.0 [facility] Comment on above: Performed By: #### L [id number] ####[facility] LAB ([facility])[address] [place], [place] [address] IMMATURE PLATELET FRACTION % 3.8 % Normal 0.8-6.3 [facility] Comment on above: Performed By: #### L [id number] ####[facility] LAB ([facility])[address] [place] [address] MCH (RBC) [Entitic mass] 29.6 pg Normal 27.0-33.0 [facility] Comment on above: Performed By: #### L [id number] ####[facility] LAB ([facility])[address] [place] [address] MCV (RBC) [Entitic vol] 87.0 fL Normal 82.0-98.0 [facility] Comment on above: Performed By: #### L [id number] ####[facility] LAB ([facility])[address] [place] [address] PLATELETS (10*3/UL) IN BLOOD AUTOMATED COUNT 108 10*3/uL Low 150-400 [facility] Comment on above: Performed By: #### L [id number] ####[facility] LAB ([facility])[address] [place] [address] RBC (Bld) [#/Vol] 3.38 10*6/uL Low 4.20-5.70 [facility] Comment on above: Performed By: #### L [id number] ####[facility] LAB ([facility])[address] [place] [address] WBC (Bld) [#/Vol] 6.87 10*3/uL Normal 4.00-10.60 [facility] Comment on above: Performed By: #### L [id number] ####[facility] LAB ([facility])[address] [place] [address] Erythrocyte distribution width (RBC) [Ratio] 15.3 % High 11.5-15.0 [facility] Comment on above: Order Comment: Pre-o p diagnosis:Aortic valve disorder [I35.9] Performed By: #### L [id number] ####[facility] LAB ([facility])[address] [place] [address] ERYTHROCYTE MEAN CORPUSCULAR HEMOGLOBIN CONCENTRATION (G/DL) BY AUTOMATED 34.5 g/dL Normal 32.0-35.0 [facility] Comment on above: Order Comment: Pre-o p diagnosis:Aortic valve disorder [I35.9] Performed By: #### L [id number] ####[facility] LAB ([facility])[address] [place] [address] Hematocrit (Bld) [Volume fraction] 29.3 % Low 39.0-55.0 [facility] Comment on above: Order Comment: Pre-o p diagnosis:Aortic valve disorder [I35.9] Performed By: #### L [id number] ####[facility] LAB ([facility])[address] [place] [address] Hemoglobin (Bld) [Mass/Vol] 10.1 g/dL Low 13.0-17.0 [facility] Comment on above: Order Comment: Pre-o p diagnosis:Aortic valve disorder [I35.9] Performed By: #### L [id number] ####[facility] LAB ([facility])[address] [place] [address] IMMATURE PLATELET FRACTION % 4.1 % Normal 0.8-6.3 [facility] Comment on above: Order Comment: Pre-o p diagnosis:Aortic valve disorder [I35.9] Performed By: #### L [id number] ####[facility] LAB ([facility])[address] [place] [address] MCH (RBC) [Entitic mass] 29.9 pg Normal 27.0-33.0 [facility] Comment on above: Order Comment: Pre-o p diagnosis:Aortic valve disorder [I35.9] Performed By: #### L [id number] ####[facility] LAB ([facility])[address] [place] [address] MCV (RBC) [Entitic vol] 86.7 fL Normal 82.0-98.0 [facility] Comment on above: Order Comment: Pre-o p diagnosis:Aortic valve disorder [I35.9] Performed By: #### L [id number] ####[facility] LAB ([facility])[address] [place] [address] PLATELETS (10*3/UL) IN BLOOD AUTOMATED COUNT 135 10*3/uL Low 150-400 [facility] Comment on above: Order Comment: Pre-o p diagnosis:Aortic valve disorder [I35.9] Performed By: #### L [id number] ####[facility] LAB ([facility])[address] [place] [address] RBC (Bld) [#/Vol] 3.38 10*6/uL Low 4.20-5.70 [facility] Comment on above: Order Comment: Pre-o p diagnosis:Aortic valve disorder [I35.9] Performed By: #### L [id number] ####[facility] LAB ([facility])[address] [place] [address] WBC (Bld) [#/Vol] 9.24 10*3/uL Normal 4.00-10.60 [facility] Comment on above: Order Comment: Pre-o p diagnosis:Aortic valve disorder [I35.9] Performed By: #### L [id number] ####[facility] LAB ([facility])[address] [place] [address] CBC WITH AUTO DIFFERENTIALon 06-26-2023 Basophils (Bld) [#/Vol] 0.04 10*3/uL Normal 0.00-0.20 [facility] Comment on above: Performed By: #### L [id number] ####[facility] LAB ([facility])[address] [place] [address] Basophils/100 WBC (Bld) 0.8 % Normal 0.0-1.0 [facility] Comment on above: Performed By: #### L [id number] ####[facility] LAB (BEAKER)[address] [place] [address] Eosinophils (Bld) [#/Vol] 0.28 10*3/uL Normal 0.00-0.50 [facility] Comment on above: Performed By: #### L [id number] ####[facility] LAB (BEAKER)[address] [place] [address] Eosinophils/100 WBC (Bld) 5.9 % Normal 0.0-6.0 [facility] Comment on above: Performed By: #### L [id number] ####[facility] LAB (BEAKER)[address] [place] [address] Erythrocyte distribution width (RBC) [Ratio] 15.9 % High 11.5-15.0 [facility] Comment on above: Performed By: #### L [id number] ####[facility] LAB (BEAKER)[address] [place] [address] ERYTHROCYTE MEAN CORPUSCULAR HEMOGLOBIN CONCENTRATION (G/DL) BY AUTOMATED 33.7 g/dL Normal 32.0-35.0 [facility] Comment on above: Performed By: #### L [id number] ####[facility] LAB (BEAKER)[address] [place] [address] Hematocrit (Bld) [Volume fraction] 32.6 % Low 39.0-55.0 [facility] Comment on above: Performed By: #### L [id number] ####[facility] LAB (BEAKER)[address] [place] [address] Hemoglobin (Bld) [Mass/Vol] 11.0 g/dL Low 13.0-17.0 [facility] Comment on above: Performed By: #### L [id number] ####[facility] LAB (BEAKER)[address] [place] [address] Immature granulocytes (Bld) [#/Vol] 0.01 10*3/uL Normal 0.00-0.20 [facility] Comment on above: Performed By: #### L [id number] ####[facility] LAB ([facility])[address] [place] [address] Immature granulocytes/100 WBC (Bld) 0.2 % Normal 0.0-1.0 [facility] Comment on above: Performed By: #### L [id number] ####[facility] LAB ([facility])[address] [place] [address] Lymphocytes (Bld) [#/Vol] 0.86 10*3/uL Low 1.20-4.00 [facility] Comment on above: Performed By: #### L [id number] ####[facility] LAB ([facility])[address] [place] [address] Lymphocytes/100 WBC (Bld) 18.3 % Low 20.0-45.0 [facility] Comment on above: Performed By: #### L [id number] ####[facility] LAB ([facility])[address] [place] [address] MCH (RBC) [Entitic mass] 29.4 pg Normal 27.0-33.0 [facility] Comment on above: Performed By: #### L [id number] ####[facility] LAB ([facility])[address] [place] [address] MCV (RBC) [Entitic vol] 87.2 fL Normal 82.0-98.0 [facility] Comment on above: Performed By: #### L [id number] ####[facility] LAB ([facility])[address] [place] [place] [address] Monocytes (Bld) [#/Vol] 0.50 10*3/uL Normal 0.10-1.00 [facility] Comment on above: Performed By: #### L [id number] ####[facility] LAB ([facility])[address] [place] [address] Monocytes/100 WBC (Bld) 10.6 % Normal 5.0-12.0 [facility] Comment on above: Performed By: #### L [id number] ####[facility] LAB ([facility])[address] [address] Neutrophils (Bld) [#/Vol] 3.02 10*3/uL Normal 1.60-7.60 [facility] Comment on above: Performed By: #### L [id number] ####[facility] LAB ([facility])[address] [address] Neutrophils/100 WBC (Bld) 64.2 % Normal 40.0-72.0 [facility] Comment on above: Performed By: #### L [id number] ####[facility] LAB ([facility])[address] [place] [address] NRBC (PER 100 WBCS) BY AUTOMATED COUNT 0.0 % Normal 0 [facility] Comment on above: Performed By: #### L [id number] ####[facility] LAB ([facility])[address] [place] [address] PLATELETS (10*3/UL) IN BLOOD AUTOMATED COUNT 159 10*3/uL Normal 150-400 [facility] Comment on above: Performed By: #### L [id number] ####[facility] LAB ([facility])[address] [place] [address] RBC (Bld) [#/Vol] 3.74 10*6/uL Low 4.20-5.70 [facility] Comment on above: Performed By: #### L [id number] ####[facility] LAB ([facility])[address] [place], [place] [address] WBC (Bld) [#/Vol] 4.71 10*3/uL Normal 4.00-10.60 [facility] Comment on above: Performed By: #### L [id number] ####[facility] ([facility])[address] [place] [address] CO-OXIMETRYon 06-26-2023 CARBOXYHEMOGLOBIN/HE MOGLOBIN TOTAL % IN BLOOD 2.3 % Normal [facility] Comment on above: Performed By: #### L [id number] ####[facility] RESPIRATORY [id number] [place] [address] [place] Hemoglobin (Bld) [Mass/Vol] 9.5 g/dL Normal [facility] Comment on above: Performed By: #### L [id number] ####[facility] RESPIRATORY [id number] [place] [address] [place] METHEMOGLOBIN/100 IN BLOOD 0.5 % Normal 0.0-1.5 [facility] Comment on above: Performed By: #### L [id number] ####[facility] RESPIRATORY [id number] [place] [address] [place] Oxygen saturation in Blood 61.9 % Normal [facility] Comment on above: Performed By: #### L [id number] ####[facility] RESPIRATORY [id number] [place] [address] [place] OXYGENATED HEMOGLOBIN IN BLOOD 60.2 % Normal [facility] Comment on above: Performed By: #### L [id number] ####[facility] RESPIRATORY [id number] [place] [address] [facility] COMPREHENSIVE METABOLIC PANE Braulio 06-26-2023 Albumin [Mass/Vol] 4.1 g/dL Normal 3.5-5.7 [facility] Comment on above: Performed By: #### L [id number] ####[facility] LAB (BEAKER)[address] [place] [address] ALP [Catalytic activity/Vol] 51 U/L Normal 34-104 [facility] Comment on above: Performed By: #### L [id number] ####[facility] LAB (BEAKER)[address] [place] [address] ALT [Catalytic activity/Vol] 13 U/L Normal 7-52 [facility] Comment on above: Performed By: #### L [id number] ####[facility] LAB (BEAKER)[address] [place] [address] Anion gap [Moles/Vol] 10 mmol/L Normal 7-20 [facility] Comment on above: Performed By: #### L [id number] ####[facility] LAB (BEAKER)[address] [place] [address] AST [Catalytic activity/Vol] 12 U/L Low 13-39 [facility] Comment on above: Performed By: #### L [id number] ####[facility] LAB ([facility])[address] [place] [address] Bilirubin [Mass/Vol] 0.9 mg/dL Normal 0.3-1.0 [facility] Comment on above: Performed By: #### L [id number] ####[facility] LAB ([facility])[address] [place] [address] Calcium [Mass/Vol] 8.6 mg/dL Normal 8.6-10.3 [facility] Comment on above: Performed By: #### L [id number] ####[facility] LAB ([facility])[address] [place] [address] Chloride [Moles/Vol] 104 mmol/L Normal 98-107 [facility] Comment on above: Performed By: #### L [id number] ####[facility] ([facility])[address] [place] [address] CO2 [Moles/Vol] 26 mmol/L Normal 21-31 [facility] Comment on above: Performed By: #### L [id number] ####[facility] LAB (BEAKER)[address] [place] [address] Creatinine [Mass/Vol] 0.82 mg/dL Normal 0.70-1.30 [facility] Comment on above: Performed By: #### L [id number] ####[facility] ([facility])[address] [place] [address] GLOMERULAR FILTRATION RATE ML/MIN/1.73 SQ M.PREDICTED 107.0 mL/min/1.73m*2 Normal >60.0 [facility] Comment on above: Result Comment: The [facility]???s estimated glomerular filtration rate (eGFR) will no [...] of individuals. Performed By: #### L [id number] ####[facility] LAB ([facility])[address] [place] [address] Glucose [Mass/Vol] 97 mg/dL Normal 70-100 [facility] Comment on above: Performed By: #### L [id number] ####[facility] ([facility])[address] [place] [address] Potassium [Moles/Vol] 4.0 mmol/L Normal 3.5-5.1 [facility] Comment on above: Performed By: #### L [id number] ####[facility] ([facility])[address] [place] [address] Protein [Mass/Vol] 6.0 g/dL Normal 6.0-8.3 [facility] Comment on above: Performed By: #### L [id number] ####[facility] ([facility])[address] [place] [address] Sodium [Moles/Vol] 136 mmol/L Normal 136-145 [facility] Comment on above: Performed By: #### L [id number] ####[facility] ([facility])[address] [place] [address] Urea nitrogen [Mass/Vol] 12 mg/dL Normal 7-25 [facility] Comment on above: Performed By: #### L [id number] ####[facility] ([facility])[address] [place] [address] UREA NITROGEN/CREATININE (MASS RATIO) IN SER/PLAS 14.6 Normal [facility] Comment on above: Performed By: #### L [id number] ####[facility] LAB ([facility])[address] [place] [address] CONSULTon 06-26-2023 CONSULT Normal [facility] DEVICE CULTUREon 06-26-2023 Bacteria identified Cx Nom (Unsp spec) No growth at 3 days Normal [facility] Comment on above: Order Comment: RIGHT ARM PICC LINE CULTURE Performed By: #### D EVICE CULTURE ####[facility] LAB (BEAKER)[address] [facility] [address] FIBRINOGENon 06-26-2023 Magnesium [Mass/Vol] 402 mg/dL Normal 150-425 [facility] Comment on above: Order Comment: Pre-o p diagnosis:Aortic valve disorder [I35.9] Performed By: #### L [id number] ####[facility] LAB ([facility])[address] [facility] [address] HISTOLOGY - TISSUE EXAMon LAB AP CASE REPORT Normal [facility] Comment on above: Order Comment: Pre-o p diagnosis:Aortic valve disorder [I35.9] Result Comment: Surg ical Pathology Case: [id number] Provider: Paul George MD Collected: 06/26/2023 115[address]Ordering Location: [facility] Main Operating Room Received: 06/26/2023 1354Pathologist: LILIA Prakashpecimen: Other, AORTIC VALVE LEAFLET FOR HISTOLOGY Performed By: #### L [id number] ####[facility] LAB ([facility])[address] [place] [place] [address] LAB AP CLINICAL INFORMATION Normal [facility] Comment on above: Order Comment: Pre-o p diagnosis:Aortic valve disorder [I35.9] Result Comment: Post -Op [id number] - Aortic valve disorder [ICD-10-CM] Performed By: #### L [id number] ####[facility] ([facility])[address] [place] [place] [address] LAB AP GROSS DESCRIPTION A. Other. Normal [facility] Comment on above: Order Comment: Pre-o p [...] identified. The specimen is serially sectioned and sales representative electric service sections are submitted in 1 cassette.Nai Sheth, [employer] Jaspreet Chawla, [employer] Performed By: #### L [id number] ####[facility] ([facility])[address] [place] [place] [address] LAB AP MICROSCOPIC DESCRIPTION Microscopic examination performed. [facility] Comment on above: Order Comment: Pre-o p diagnosis:Aortic valve disorder [I35.9] Performed By: #### L [id number] ####[facility] ([facility])[address] [place] [place] [address] LAB AP REPORT FINAL DIAGNOSIS NARRATIVE [facility] Comment on above: Order Comment: Pre-o p diagnosis:Aortic valve disorder [I35.9] Result Comment: A. A ortic valve leaflet, removal:- Valvular tissue with fibrinoid necrosis and acute inflammation. Performed By: #### L [id number] ####[facility] ([facility])[address] [place] [place] [address] LACTIC ACID WITH 4 HOUR REFL EXon 06-26-2023 LACTATE (MMOL/L) IN SER/PLAS 1.5 mmol/L Normal 0.5-2.2 [facility] Comment on above: Order Comment: Pre-o p diagnosis:Aortic valve disorder [I35.9] Performed By: #### L [id number] ####[facility] ([facility])[address] [place] [place] [address] LACTATE (MMOL/L) IN SER/PLAS 3.1 mmol/L Critically high 0.5-2.2 [facility] Comment on above: Order Comment: Pre-o p diagnosis:Aortic valve disorder [I35.9] Performed By: #### L [id number] ####[facility] ([facility])[address] [place] [address] LACTIC ACID, PLASMAon 2023 LACTATE (MMOL/L) IN SER/PLAS 2.4 mmol/L High 0.5-2.2 [facility] Comment on above: Performed By: #### L [id number] ####[facility] ([facility])[address] [place] [address] MAGNESIUMon 06-26-2023 Magnesium [Mass/Vol] 2.4 mg/dL Normal 1.9-2.7 [facility] Comment on above: Performed By: #### L [id number] ####[facility] ([facility])[address] [place] [address] Magnesium [Mass/Vol] 2.6 mg/dL Normal 1.9-2.7 [facility] Comment on above: Order Comment: Pre-o p diagnosis:Aortic valve disorder [I35.9] Performed By: #### L [id number] ####[facility] ([facility])[address] [place] [address] Magnesium [Mass/Vol] 2.0 mg/dL Normal 1.9-2.7 [facility] Comment on above: Performed By: #### L [id number] ####[facility] ([facility])[address] [place] [address] OPNOTEon 06-26-2023 OPNOTE Normal [facility] PHOSPHORUSon 06-26-2023 Magnesium [Mass/Vol] 3.9 mg/dL Normal 2.5-5.0 [facility] Comment on above: Performed By: #### L [id number] ####[facility] ([facility])[address] [place] [address] Magnesium [Mass/Vol] 4.2 mg/dL Normal 2.5-5.0 [facility] Comment on above: Performed By: #### L [id number] ####[facility] ([facility])[address] [place] [address] POCT ACTIVATED CLOTTING TIME UNSOLICITED RESULTSon 06-26-2023 POC ACTIVATED CLOTTING TIME 143 sec Normal 82-152 [facility] Comment on above: Performed By: #### L [id number] ####[facility] ([facility])[address] [place] [address] POC ACTIVATED CLOTTING TIME 148 sec Normal 82-152 [facility] Comment on above: Performed By: #### L [id number] ####[facility] ([facility])[address] [place] [address] POC ACTIVATED CLOTTING TIME 473 sec High 82-152 [facility] Comment on above: Performed By: #### L [id number] ####[facility] ([facility])[address] [place] [address] POC ACTIVATED CLOTTING TIME 562 sec High 82-152 [facility] Comment on above: Performed By: #### L [id number] ####[facility] ([facility])[address] [place] [address] POC ACTIVATED CLOTTING TIME 602 sec High 82-152 [facility] Comment on above: Performed By: #### L [id number] ####[facility] ([facility])[address] [place] [address] POC ACTIVATED CLOTTING TIME 679 sec High 82-152 [facility] Comment on above: Performed By: #### L [id number] ####[facility] ([facility])[address] [place] [address] POC ACTIVATED CLOTTING TIME 772 sec High 82-152 [facility] Comment on above: Performed By: #### L [id number] ####[facility] ([facility])[address] [place] [address] POC ACTIVATED CLOTTING TIME 772 sec High 82-152 [facility] Comment on above: Performed By: #### L [id number] ####[facility] ([facility])[address] [place] [address] POC ACTIVATED CLOTTING TIME 701 sec High 82-152 [facility] Comment on above: Performed By: #### L [id number] ####[facility] ([facility])[address] [place] [address] POC ACTIVATED CLOTTING TIME 154 sec High 82-152 [facility] Comment on above: Performed By: #### L [id number] ####[facility] ([facility])[address] [place] [address] POCT GLUCOSE METER UNSOLICIT ED RESULTSon 06-26-2023 Glucose [Mass/Vol] 132 mg/dL High 70-105 [facility] Comment on above: Order Comment: Waive d Testing in the ED is performed under the ED CLIA certificate #[id number]. Result Comment: mmcc gabo Performed By: #### L [id number] ####[facility] ([facility])[address] [place] [address] Glucose [Mass/Vol] 126 mg/dL High 70-105 [facility] Comment on above: Order Comment: Waive d Testing in the ED is performed under the ED CLIA certificate #[id number]. Result Comment: mmcc gabo Performed By: #### L [id number] ####[facility] ([facility])[address] [place] [address] Glucose [Mass/Vol] 135 mg/dL High 70-105 [facility] Comment on above: Order Comment: Waive d Testing in the ED is performed under the ED CLIA certificate #[id number]. Result Comment: pcar r Performed By: #### L [id number] ####[facility] ([facility])[address] [place] [address] Glucose [Mass/Vol] 131 mg/dL High 70-105 [facility] Comment on above: Order Comment: Waive d Testing in the ED is performed under the ED CLIA certificate #[id number]. Result Comment: [email or web address] Performed By: #### L [id number] ####[facility] ([facility])[address] [place] [address] POCT PERFUSION PANEL UNSOLIC ITED RESULTSon 06-26-2023 CO2 [Moles/Vol] 22.0 mmol/L Normal 21.0-29.[address] [facility] Comment on above: Performed By: #### L [id number] ####[facility] ([facility])[address] [place] [address] Glucose [Mass/Vol] 197 mg/dL High 70-105 [facility] Comment on above: Performed By: #### L [id number] ####[facility] ([facility])[address] [place] [address] HCO3 (Bld) [Moles/Vol] 20.8 mmol/L Low 23.0-28.0 [facility] Comment on above: Performed By: #### L [id number] ####[facility] ([facility])[address] [place] [address] Hematocrit (Bld) [Volume fraction] 30 % Low 38-51 [facility] Comment on above: Performed By: #### L [id number] ####[facility] ([facility])[address] [place] [address] Hemoglobin (Bld) [Mass/Vol] 10.2 g/dL Low 12.0-17.0 [facility] Comment on above: Performed By: #### L [id number] ####[facility] ([facility])[address] [place] [address] POCT BASE EXCESS -4.0 mmol/L Low -2.0-3.0 [facility] Comment on above: Performed By: #### L [id number] ####[facility] ([facility])[address] [place] [address] POCT IONIZED CALCIUM 1.17 mmol/L Normal 1.12-1.32 [facility] Comment on above: Performed By: #### L [id number] ####[facility] ([facility])[address] [place] [address] POCT PCO2 36.5 mmHg Low 41.0-51.0 [facility] Comment on above: Performed By: #### L [id number] ####[facility] ([facility])[address] [place] [address] POCT PH 7.36 Normal 7.31-7.41 [facility] Comment on above: Performed By: #### L [id number] ####[facility] ([facility])[address] [place] [address] POCT PO2 240 mmHg High 80-105 [facility] Comment on above: Performed By: #### L [id number] ####[facility] ([facility])[address] [place] [address] POCT SO2 100 % High 95-98 [facility] Comment on above: Performed By: #### L [id number] ####[facility] ([facility])[address] [place] [address] Potassium [Moles/Vol] 3.9 mmol/L Normal 3.5-4.9 [facility] Comment on above: Performed By: #### L [id number] ####[facility] ([facility])[address] [place] [address] Sodium [Moles/Vol] 139 mmol/L Normal 138.0-146.0 [facility] Comment on above: Performed By: #### L [id number] ####[facility] ([facility])[address] [place] [address] CO2 [Moles/Vol] 23.0 mmol/L Normal 21.0-29.[address] [facility] Comment on above: Performed By: #### L [id number] ####[facility] ([facility])[address] [place] [address] Glucose [Mass/Vol] 208 mg/dL High 70-105 [facility] Comment on above: Performed By: #### L [id number] ####[facility] ([facility])[address] [place] [address] HCO3 (Bld) [Moles/Vol] 21.6 mmol/L Low 23.0-28.0 [facility] Comment on above: Performed By: #### L [id number] ####[facility] ([facility])[address] [place] [address] Hematocrit (Bld) [Volume fraction] 28 % Low 38-51 [facility] Comment on above: Performed By: #### L [id number] ####[facility] ([facility])[address] [place] [address] Hemoglobin (Bld) [Mass/Vol] 9.5 g/dL Low 12.0-17.0 [facility] Comment on above: Performed By: #### L [id number] ####[facility] ([facility])[address] [place] [address] POCT BASE EXCESS -4.0 mmol/L Low -2.0-3.0 [facility] Comment on above: Performed By: #### L [id number] ####[facility] ([facility])[address] [place] [address] POCT IONIZED CALCIUM 1.22 mmol/L Normal 1.12-1.32 [facility] Comment on above: Performed By: #### L [id number] ####[facility] ([facility])[address] [place] [address] POCT PCO2 38.6 mmHg Low 41.0-51.0 [facility] Comment on above: Performed By: #### L [id number] ####[facility] ([facility])[address] [place] [address] POCT PH 7.36 Normal 7.31-7.41 [facility] Comment on above: Performed By: #### L [id number] ####[facility] ([facility])[address] [place] [address] POCT PO2 265 mmHg High 80-105 [facility] Comment on above: Performed By: #### L [id number] ####[facility] ([facility])[address] [place] [address] POCT SO2 100 % High 95-98 [facility] Comment on above: Performed By: #### L [id number] ####[facility] ([facility])[address] [place] [address] Potassium [Moles/Vol] 3.9 mmol/L Normal 3.5-4.9 [facility] Comment on above: Performed By: #### L [id number] ####[facility] ([facility])[address] [place] [address] Sodium [Moles/Vol] 137 mmol/L Low 138.0-146.0 [facility] Comment on above: Performed By: #### L [id number] ####[facility] ([facility])[address] [place] [address] CO2 [Moles/Vol] 25.0 mmol/L Normal 21.0-29.[address] [facility] Comment on above: Performed By: #### L [id number] ####[facility] ([facility])[address] [place] [address] Glucose [Mass/Vol] 216 mg/dL High 70-105 [facility] Comment on above: Performed By: #### L [id number] ####[facility] ([facility])[address] [place] [address] HCO3 (Bld) [Moles/Vol] 23.3 mmol/L Normal 23.0-28.0 [facility] Comment on above: Performed By: #### L [id number] ####[facility] ([facility])[address] [place] [address] Hematocrit (Bld) [Volume fraction] 28 % Low 38-51 [facility] Comment on above: Performed By: #### L [id number] ####[facility] ([facility])[address] [place] [address] Hemoglobin (Bld) [Mass/Vol] 9.5 g/dL Low 12.0-17.0 [facility] Comment on above: Performed By: #### L [id number] ####[facility] ([facility])[address] [place] [address] POCT BASE EXCESS -3.0 mmol/L Low -2.0-3.0 [facility] Comment on above: Performed By: #### L [id number] ####[facility] ([facility])[address] [place] [address] POCT IONIZED CALCIUM 1.29 mmol/L Normal 1.12-1.32 [facility] Comment on above: Performed By: #### L [id number] ####[facility] ([facility])[address] [place] [address] POCT PCO2 46.6 mmHg Normal 41.0-51.0 [facility] Comment on above: Performed By: #### L [id number] ####[facility] ([facility])[address] [place] [address] POCT PH 7.31 Normal 7.31-7.41 [facility] Comment on above: Performed By: #### L [id number] ####[facility] ([facility])[address] [place] [address] POCT PO2 348 mmHg High 80-105 [facility] Comment on above: Performed By: #### L [id number] ####[facility] ([facility])[address] [place] [address] POCT SO2 100 % High 95-98 [facility] Comment on above: Performed By: #### L [id number] ####[facility] ([facility])[address] [place] [address] Potassium [Moles/Vol] 4.7 mmol/L Normal 3.5-4.9 [facility] Comment on above: Performed By: #### L [id number] ####[facility] ([facility])[address] [place] [address] Sodium [Moles/Vol] 136 mmol/L Low 138.0-146.0 [facility] Comment on above: Performed By: #### L [id number] ####[facility] ([facility])[address] [place] [address] CO2 [Moles/Vol] 26.0 mmol/L Normal 21.0-29.[address] [facility] Comment on above: Performed By: #### L [id number] ####[facility] ([facility])[address] [place] [address] Glucose [Mass/Vol] 173 mg/dL High 70-105 [facility] Comment on above: Performed By: #### L [id number] ####[facility] ([facility])[address] [place] [address] HCO3 (Bld) [Moles/Vol] 24.8 mmol/L Normal 23.0-28.0 [facility] Comment on above: Performed By: #### L [id number] ####[facility] ([facility])[address] [place] [address] Hematocrit (Bld) [Volume fraction] 30 % Low 38-51 [facility] Comment on above: Performed By: #### L [id number] ####[facility] ([facility])[address] [place] [address] Hemoglobin (Bld) [Mass/Vol] 10.2 g/dL Low 12.0-17.0 [facility] Comment on above: Performed By: #### L [id number] ####[facility] ([facility])[address] [place] [address] POCT BASE EXCESS 0.0 mmol/L Normal -2.0-3.[address] [facility] Comment on above: Performed By: #### L [id number] ####[facility] ([facility])[address] [place] [address] POCT IONIZED CALCIUM 1.57 mmol/L Critically high 1.12-1.32 [facility] Comment on above: Performed By: #### L [id number] ####[facility] ([facility])[address] [place] [address] POCT PCO2 40.5 mmHg Low 41.0-51.0 [facility] Comment on above: Performed By: #### L [id number] ####[facility] ([facility])[address] [place] [address] POCT PH 7.40 Normal 7.31-7.41 [facility] Comment on above: Performed By: #### L [id number] ####[facility] ([facility])[address] [place] [address] POCT PO2 321 mmHg High 80-105 [facility] Comment on above: Performed By: #### L [id number] ####[facility] ([facility])[address] [place] [address] POCT SO2 100 % High 95-98 [facility] Comment on above: Performed By: #### L [id number] ####[facility] ([facility])[address] [place] [address] Potassium [Moles/Vol] 5.4 mmol/L High 3.5-4.9 [facility] Comment on above: Performed By: #### L [id number] ####[facility] ([facility])[address] [place] [address] Sodium [Moles/Vol] 134 mmol/L Low 138.0-146.0 [facility] Comment on above: Performed By: #### L [id number] ####[facility] ([facility])[address] [place] [address] CO2 [Moles/Vol] 25.0 mmol/L Normal 21.0-29.[address] [facility] Comment on above: Performed By: #### L [id number] ####[facility] ([facility])[address] [place] [address] Glucose [Mass/Vol] 171 mg/dL High 70-105 [facility] Comment on above: Performed By: #### L [id number] ####[facility] ([facility])[address] [place] [address] HCO3 (Bld) [Moles/Vol] 23.6 mmol/L Normal 23.0-28.0 [facility] Comment on above: Performed By: #### L [id number] ####[facility] ([facility])[address] [place] [address] Hematocrit (Bld) [Volume fraction] 30 % Low 38-51 [facility] Comment on above: Performed By: #### L [id number] ####[facility] ([facility])[address] [place] [address] Hemoglobin (Bld) [Mass/Vol] 10.2 g/dL Low 12.0-17.0 [facility] Comment on above: Performed By: #### L [id number] ####[facility] ([facility])[address] [address] POCT BASE EXCESS -2.0 mmol/L Normal -2.0-3.0 [facility] Comment on above: Performed By: #### L [id number] ####[facility] ([facility])[address] [address] POCT IONIZED CALCIUM 1.12 mmol/L Normal 1.12-1.32 [facility] Comment on above: Performed By: #### L [id number] ####[facility] ([facility])[address] [address] POCT PCO2 44.0 mmHg Normal 41.0-51.0 [facility] Comment on above: Performed By: #### L [id number] ####[facility] ([facility])[address] [address] POCT PH 7.34 Normal 7.31-7.41 [facility] Comment on above: Performed By: #### L [id number] ####[facility] ([facility])[address] [address] POCT PO2 390 mmHg High 80-105 [facility] Comment on above: Performed By: #### L [id number] ####[facility] ([facility])[address] [address] POCT SO2 100 % High 95-98 [facility] Comment on above: Performed By: #### L [id number] ####[facility] ([facility])[address] [place] [address] Potassium [Moles/Vol] 5.4 mmol/L High 3.5-4.9 [facility] Comment on above: Performed By: #### L [id number] ####[facility] ([facility])[address] [place] [address] Sodium [Moles/Vol] 136 mmol/L Low 138.0-146.0 [facility] Comment on above: Performed By: #### L [id number] ####[facility] ([facility])[address] [place] [address] CO2 [Moles/Vol] 25.0 mmol/L Normal 21.0-29.[address] [facility] Comment on above: Performed By: #### L [id number] ####[facility] ([facility])[address] [place] [address] Glucose [Mass/Vol] 184 mg/dL High 70-105 [facility] Comment on above: Performed By: #### L [id number] ####[facility] ([facility])[address] [place] [address] HCO3 (Bld) [Moles/Vol] 23.7 mmol/L Normal 23.0-28.0 [facility] Comment on above: Performed By: #### L [id number] ####[facility] ([facility])[address] [place] [address] Hematocrit (Bld) [Volume fraction] 33 % Low 38-51 [facility] Comment on above: Performed By: #### L [id number] ####[facility] ([facility])[address] [place] [address] Hemoglobin (Bld) [Mass/Vol] 11.2 g/dL Low 12.0-17.0 [facility] Comment on above: Performed By: #### L [id number] ####[facility] ([facility])[address] [place] [address] POCT BASE EXCESS -3.0 mmol/L Low -2.0-3.0 [facility] Comment on above: Performed By: #### L [id number] ####[facility] ([facility])[address] [place] [address] POCT IONIZED CALCIUM 1.09 mmol/L Low 1.12-1.32 [facility] Comment on above: Performed By: #### L [id number] ####[facility] ([facility])[address] [address] POCT PCO2 46.1 mmHg Normal 41.0-51.0 [facility] Comment on above: Performed By: #### L [id number] ####[facility] ([facility])[address] [place] [address] POCT PH 7.32 Normal 7.31-7.41 [facility] Comment on above: Performed By: #### L [id number] ####[facility] ([facility])[address] [place] [address] POCT PO2 400 mmHg High 80-105 [facility] Comment on above: Performed By: #### L [id number] ####[facility] ([facility])[address] [place] [address] POCT SO2 100 % High 95-98 [facility] Comment on above: Performed By: #### L [id number] ####[facility] ([facility])[address] [place] [address] Potassium [Moles/Vol] 4.5 mmol/L Normal 3.5-4.9 [facility] Comment on above: Performed By: #### L [id number] ####[facility] ([facility])[address] [place] [address] Sodium [Moles/Vol] 136 mmol/L Low 138.0-146.0 [facility] Comment on above: Performed By: #### L [id number] ####[facility] ([facility])[address] [place] [address] CO2 [Moles/Vol] 25.0 mmol/L Normal 21.0-29.[address] [facility] Comment on above: Performed By: #### L [id number] ####[facility] ([facility])[address] [place] [address] Glucose [Mass/Vol] 193 mg/dL High 70-105 [facility] Comment on above: Performed By: #### L [id number] ####[facility] ([facility])[address] [place] [address] HCO3 (Bld) [Moles/Vol] 23.6 mmol/L Normal 23.0-28.0 [facility] Comment on above: Performed By: #### L [id number] ####[facility] ([facility])[address] [place] [address] Hematocrit (Bld) [Volume fraction] 26 % Low 38-51 [facility] Comment on above: Performed By: #### L [id number] ####[facility] ([facility])[address] [place] [address] Hemoglobin (Bld) [Mass/Vol] 8.8 g/dL Low 12.0-17.0 [facility] Comment on above: Performed By: #### L [id number] ####[facility] ([facility])[address] [place] [address] POCT BASE EXCESS -2.0 mmol/L Normal -2.0-3.0 [facility] Comment on above: Performed By: #### L [id number] ####[facility] ([facility])[address] [place] [address] POCT IONIZED CALCIUM 1.06 mmol/L Low 1.12-1.32 [facility] Comment on above: Performed By: #### L [id number] ####[facility] ([facility])[address] [place] [address] POCT PCO2 40.9 mmHg Low 41.0-51.0 [facility] Comment on above: Performed By: #### L [id number] ####[facility] ([facility])[address] [place] [address] POCT PH 7.37 Normal 7.31-7.41 [facility] Comment on above: Performed By: #### L [id number] ####[facility] ([facility])[address] [place] [address] POCT PO2 510 mmHg High 80-105 [facility] Comment on above: Performed By: #### L [id number] ####[facility] ([facility])[address] [place] [address] POCT SO2 100 % High 95-98 [facility] Comment on above: Performed By: #### L [id number] ####[facility] ([facility])[address] [place] [address] Potassium [Moles/Vol] 4.4 mmol/L Normal 3.5-4.9 [facility] Comment on above: Performed By: #### L [id number] ####[facility] ([facility])[address] [place] [address] Sodium [Moles/Vol] 135 mmol/L Low 138.0-146.0 [facility] Comment on above: Performed By: #### L [id number] ####[facility] ([facility])[address] [place] [address] CO2 [Moles/Vol] 24.0 mmol/L Normal 21.0-29.[address] [facility] Comment on above: Performed By: #### L [id number] ####PLAINS [facility] ([facility]ER)[address] [place] [address] Glucose [Mass/Vol] 185 mg/dL High 70-105 [facility] Comment on above: Performed By: #### L [id number] ####[facility] (BEAKER)[address] [place] [address] HCO3 (Bld) [Moles/Vol] 22.7 mmol/L Low 23.0-28.0 [facility] Comment on above: Performed By: #### L [id number] ####[facility] (BEAKER)[address] [address] Hematocrit (Bld) [Volume fraction] 26 % Low 38-51 [facility] Comment on above: Performed By: #### L [id number] ####[facility] (BEAKER)[address] [address] Hemoglobin (Bld) [Mass/Vol] 8.8 g/dL Low 12.0-17.0 [facility] Comment on above: Performed By: #### L [id number] ####[facility] (BEAKER)[address] [address] POCT BASE EXCESS -2.0 mmol/L Normal -2.0-3.0 [facility] Comment on above: Performed By: #### L [id number] ####[facility] (BEAKER)[address] [address] POCT IONIZED CALCIUM 1.10 mmol/L Low 1.12-1.32 [facility] Comment on above: Performed By: #### L [id number] ####[facility] (BEAKER)[address] [address] POCT PCO2 37.2 mmHg Low 41.0-51.0 [facility] Comment on above: Performed By: #### L [id number] ####[facility] (BEAKER)[address] [address] POCT PH 7.39 Normal 7.31-7.41 [facility] Comment on above: Performed By: #### L [id number] ####[facility] (BEAKER)[address] [address] POCT PO2 485 mmHg High 80-105 [facility] Comment on above: Performed By: #### L [id number] ####[facility] (BEAKER)[address] [address] POCT SO2 100 % High 95-98 [facility] Comment on above: Performed By: #### L [id number] ####[facility] (BEAKER)[address] [place] [address] Potassium [Moles/Vol] 3.7 mmol/L Normal 3.5-4.9 [facility] Comment on above: Performed By: #### L [id number] ####[facility] (BEAKER)[address] [place] [address] Sodium [Moles/Vol] 136 mmol/L Low 138.0-146.0 [facility] Comment on above: Performed By: #### L [id number] ####[facility] (BEAKER)[address] [place] [address] CO2 [Moles/Vol] 23.0 mmol/L Normal 21.0-29.[address] [facility] Comment on above: Performed By: #### L [id number] ####[facility] (BEAKER)[address] [place] [address] Glucose [Mass/Vol] 132 mg/dL High 70-105 [facility] Comment on above: Performed By: #### L [id number] ####[facility] (BEAKER)[address] [place] [address] HCO3 (Bld) [Moles/Vol] 21.5 mmol/L Low 23.0-28.0 [facility] Comment on above: Performed By: #### L [id number] ####[facility] (BEAKER)[address] [place] [address] Hematocrit (Bld) [Volume fraction] 29 % Low 38-51 [facility] Comment on above: Performed By: #### L [id number] ####[facility] (BEAKER)[address] [place] [address] Hemoglobin (Bld) [Mass/Vol] 9.9 g/dL Low 12.0-17.0 [facility] Comment on above: Performed By: #### L [id number] ####[facility] (BEAKER)[address] [place] [address] POCT BASE EXCESS -4.0 mmol/L Low -2.0-3.0 [facility] Comment on above: Performed By: #### L [id number] ####[facility] (BEAKER)[address] [place] [address] POCT IONIZED CALCIUM 1.27 mmol/L Normal 1.12-1.32 [facility] Comment on above: Performed By: #### L [id number] ####[facility] (BEAKER)[address] [address] POCT PCO2 38.3 mmHg Low 41.0-51.0 [facility] Comment on above: Performed By: #### L [id number] ####[facility] (BEAKER)[address] [address] POCT PH 7.36 Normal 7.31-7.41 [facility] Comment on above: Performed By: #### L [id number] ####[facility] (BEAKER)[address] [address] POCT PO2 214 mmHg High 80-105 [facility] Comment on above: Performed By: #### L [id number] ####[facility] (BEAKER)[address] [place] [address] POCT SO2 100 % High 95-98 [facility] Comment on above: Performed By: #### L [id number] ####[facility] (BEAKER)[address] [place], [place] [address] Potassium [Moles/Vol] 3.9 mmol/L Normal 3.5-4.9 [facility] Comment on above: Performed By: #### L [id number] ####[facility] (BEAKER)[address] [place] [address] Sodium [Moles/Vol] 137 mmol/L Low 138.0-146.0 [facility] Comment on above: Performed By: #### L [id number] ####[facility] (BEAKER)[address] [place] [address] POCT BASE EXCESS Normal [facility] Comment on above: Performed By: #### L [id number] ####[facility] (BEAKER)[address] [place] [address] POCT GLUCOSE Normal [facility] Comment on above: Performed By: #### L [id number] ####[facility] ([facility])[address] [place] [address] POCT HCO3 Normal [facility] Comment on above: Performed By: #### L [id number] ####[facility] ([facility])[address] [place] [address] POCT HEMATOCRIT Normal [facility] Comment on above: Performed By: #### L [id number] ####[facility] ([facility])[address] [place] [address] POCT HEMOGLOBIN Normal [facility] Comment on above: Performed By: #### L [id number] ####[facility] ([facility])[address] [place] [address] POCT IONIZED CALCIUM Normal [facility] Comment on above: Performed By: #### L [id number] ####[facility] (BEAKER)[address] [place] [address] POCT PCO2 Normal [facility] Comment on above: Performed By: #### L [id number] ####[facility] (BEAKER)[address] [place] [address] POCT PH Normal [facility] Comment on above: Performed By: #### L [id number] ####[facility] (BEAKER)[address] [place] [address] POCT PO2 53 mmHg Low 80-105 [facility] Comment on above: Performed By: #### L [id number] ####[facility] (BEAKER)[address] [place] [address] POCT POTASSIUM Normal [facility] Comment on above: Performed By: #### L [id number] ####[facility] (BEAKER)[address] [place] [address] POCT SO2 85 % Low 95-98 [facility] Comment on above: Performed By: #### L [id number] ####[facility] (BEAKER)[address] [place] [address] POCT SODIUM Normal [facility] Comment on above: Performed By: #### L [id number] ####[facility] (BEAKER)[address] [place] [address] POCT TOTAL CO2 Normal [facility] Comment on above: Performed By: #### L [id number] ####[facility] (BEAKER)[address] [place] [address] CO2 [Moles/Vol] 25.0 mmol/L Normal 21.0-29.[address] [facility] Comment on above: Performed By: #### L [id number] ####[facility] (BEAKER)[address] [place] [address] Glucose [Mass/Vol] 114 mg/dL High 70-105 [facility] Comment on above: Performed By: #### L [id number] ####[facility] (BEAKER)[address] [place] [address] HCO3 (Bld) [Moles/Vol] 23.4 mmol/L Normal 23.0-28.0 [facility] Comment on above: Performed By: #### L [id number] ####[facility] (BEAKER)[address] [place] [address] Hematocrit (Bld) [Volume fraction] 30 % Low 38-51 [facility] Comment on above: Performed By: #### L [id number] ####[facility] (BEAKER)[address] [place] [address] Hemoglobin (Bld) [Mass/Vol] 10.2 g/dL Low 12.0-17.0 [facility] Comment on above: Performed By: #### L [id number] ####[facility] (BEAKER)[address] [place] [address] POCT BASE EXCESS -2.0 mmol/L Normal -2.0-3.0 [facility] Comment on above: Performed By: #### L [id number] ####[facility] (BEAKER)[address] [place] [address] POCT IONIZED CALCIUM 1.19 mmol/L Normal 1.12-1.32 [facility] Comment on above: Performed By: #### L [id number] ####[facility] (BEAKER)[address] [address] POCT PCO2 40.0 mmHg Low 41.0-51.0 [facility] Comment on above: Performed By: #### L [id number] ####[facility] (BEAKER)[address] [place] [address] POCT PH 7.38 Normal 7.31-7.41 [facility] Comment on above: Performed By: #### L [id number] ####[facility] (BEAKER)[address] [place] [address] POCT PO2 159 mmHg High 80-105 [facility] Comment on above: Performed By: #### L [id number] ####[facility] ([facility])[address] [place], [place] [address] POCT SO2 99 % High 95-98 [facility] Comment on above: Performed By: #### L [id number] ####[facility] ([facility])[address] [place] [address] Potassium [Moles/Vol] 4.1 mmol/L Normal 3.5-4.9 [facility] Comment on above: Performed By: #### L [id number] ####[facility] (BEAKER)[address] [place] [address] Sodium [Moles/Vol] 137 mmol/L Low 138.0-146.0 [facility] Comment on above: Performed By: #### L [id number] ####[facility] (BEAKER)[address] [place] [address] PROTIME-INRon 06-26-2023 INR IN PPP BY COAGULATION ASSAY 1.29 High 0.90-1.10 [facility] Comment on above: Result Comment: [facility] RECOMMENDED INR FOR WARFARIN THERAPY CONDITION INRPROPHYLAXIS OF VENOUS THROMBOSIS 2-3(HIGH-RISK SURGERY)TREATMENT OF VENOUS THROMBOSIS 2-3TREATMENT OF PULMONARY EMBOLISM 2-3PREVENTION OF SYSTEMIC EMBOLISM: 2-3 ACUTE MYOCARDIAL INFARCTION TISSUE HEART VALVES VALVULAR HEART DISEASE ATRIAL FIBRILLATION RECURRENT SYSTEMIC EMBOLISMMECHANICAL HEART VALVE 2.5-3.5 FROM: ORAL ANTICOAGULANTS. MECHANISM OF ACTION, CLINICAL EFFECTIVENESS, AND OPTIMAL THERAPEUTIC RANGE. CHEST 1995;108:231S-246S. Performed By: #### L [id number] ####[facility] (BEAKER)[address] [place] [address] PROTHROMBIN TIME (PT) IN PPP BY COAGULATION ASSAY 16.1 Seconds High 12.3-14.8 [facility] Comment on above: Performed By: #### L [id number] ####[facility] (BEAKER)[address] [place] [address] INR IN PPP BY COAGULATION ASSAY 1.37 High 0.90-1.10 [facility] Comment on above: Order Comment: Pre-o p diagnosis:Aortic valve disorder [I35.9] Result Comment: [facility] RECOMMENDED INR FOR WARFARIN THERAPY CONDITION INRPROPHYLAXIS OF VENOUS THROMBOSIS 2-3(HIGH-RISK SURGERY)TREATMENT OF VENOUS THROMBOSIS 2-3TREATMENT OF PULMONARY EMBOLISM 2-3PREVENTION OF SYSTEMIC EMBOLISM: 2-3 ACUTE MYOCARDIAL INFARCTION TISSUE HEART VALVES VALVULAR HEART DISEASE ATRIAL FIBRILLATION RECURRENT SYSTEMIC EMBOLISMMECHANICAL HEART VALVE 2.5-3.5 FROM: ORAL ANTICOAGULANTS. MECHANISM OF ACTION, CLINICAL EFFECTIVENESS, AND OPTIMAL THERAPEUTIC RANGE. CHEST 1995;108:231S-246S. Performed By: #### L [id number] ####[facility] ([employer])[address] [place] [address] PROTHROMBIN TIME (PT) IN PPP BY COAGULATION ASSAY 16.9 Seconds High 12.3-14.8 [facility] Comment on above: Order Comment: Pre-o p diagnosis:Aortic valve disorder [I35.9] Performed By: #### L [id number] ####[facility] ([employer])[address] [place] [place] [address] INR IN PPP BY COAGULATION ASSAY 1.06 Normal 0.90-1.10 [facility] Comment on above: Result Comment: [facility] P [...] CHEST 1995;108:231S-246S. Performed By: #### L [id number] ####[facility] ([facility])[address] [place] [address] PROTHROMBIN TIME (PT) IN PPP BY COAGULATION ASSAY 13.8 Seconds Normal 12.3-14.8 [facility] Comment on above: Performed By: #### L [id number] ####[facility] ([facility])[address] [place] [address] TISSUE CULTUREon 06-26-2023 Bacteria identified Cx Nom (Unsp spec) No growth at 5 days Normal [facility] Comment on above: Order Comment: Pre-o p diagnosis:Aortic valve disorder [I35.9] Performed By: #### L [id number] ####[facility] ([facility])[address] [place] [address] GRAM STAIN RESULT Normal [facility] Comment on above: Order Comment: Pre-o p diagnosis:Aortic valve disorder [I35.9] Result Comment: No p olymorphonuclear leukocytes seenNo organisms seen Performed By: #### L [id number] ####[facility] ([facility])[address] [address] 30on 06-25-2023 30 Normal [facility] ANESon 06-25-2023 ANES Normal [facility] APTTon 06-25-2023 ACTIVATED PARTIAL THROMBOPLASTIN TIME IN PPP BY COAGULATION ASSAY 31.3 Seconds Normal 25.0-35.0 [facility] Comment on above: Result Comment: Clin ical significance of the APTT is questionable in the presence of heparin. Performed By: #### L [id number] ####[facility] ([facility])[address] [place] [address] CBC WITH AUTO DIFFERENTIALon 06-25-2023 Basophils (Bld) [#/Vol] 0.04 10*3/uL Normal 0.00-0.20 [facility] Comment on above: Performed By: #### L [id number] ####[facility] (BEAKER)[address] [place] [address] Basophils/100 WBC (Bld) 0.8 % Normal 0.0-1.0 [facility] Comment on above: Performed By: #### L [id number] ####[facility] (BEAKER)[address] [place] [address] Eosinophils (Bld) [#/Vol] 0.38 10*3/uL Normal 0.00-0.50 [facility] Comment on above: Performed By: #### L [id number] ####[facility] (BEAKER)[address] [place] [address] Eosinophils/100 WBC (Bld) 7.7 % High 0.0-6.0 [facility] Comment on above: Performed By: #### L [id number] ####[facility] (BEAKER)[address] [place] [address] Erythrocyte distribution width (RBC) [Ratio] 16.0 % High 11.5-15.0 [facility] Comment on above: Performed By: #### L [id number] ####[facility] (BEAKER)[address] [place] [address] ERYTHROCYTE MEAN CORPUSCULAR HEMOGLOBIN CONCENTRATION (G/DL) BY AUTOMATED 34.0 g/dL Normal 32.0-35.0 [facility] Comment on above: Performed By: #### L [id number] ####[facility] (BEAKER)[address] [place] [address] Hematocrit (Bld) [Volume fraction] 32.6 % Low 39.0-55.0 [facility] Comment on above: Performed By: #### L [id number] ####[facility] (BEAKER)[address] [place] [address] Hemoglobin (Bld) [Mass/Vol] 11.1 g/dL Low 13.0-17.0 [facility] Comment on above: Performed By: #### L [id number] ####[facility] (BEAKER)[address] [place] [address] Immature granulocytes (Bld) [#/Vol] 0.02 10*3/uL Normal 0.00-0.20 [facility] Comment on above: Performed By: #### L [id number] ####[facility] (BEAKER)[address] [place] [address] Immature granulocytes/100 WBC (Bld) 0.4 % Normal 0.0-1.0 [facility] Comment on above: Performed By: #### L [id number] ####[facility] ([facility])[address] [place] [address] Lymphocytes (Bld) [#/Vol] 0.80 10*3/uL Low 1.20-4.00 [facility] Comment on above: Performed By: #### L [id number] ####[facility] (BEAKER)[address] [place] [address] Lymphocytes/100 WBC (Bld) 16.2 % Low 20.0-45.0 [facility] Comment on above: Performed By: #### L [id number] ####[facility] ([facility])[address] [place] [address] MCH (RBC) [Entitic mass] 29.8 pg Normal 27.0-33.0 [facility] Comment on above: Performed By: #### L [id number] ####[facility] (BEAKER)[address] [place] [address] MCV (RBC) [Entitic vol] 87.4 fL Normal 82.0-98.0 [facility] Comment on above: Performed By: #### L [id number] ####[facility] (BEAKER)[address] [place] [address] Monocytes (Bld) [#/Vol] 0.42 10*3/uL Normal 0.10-1.00 [facility] Comment on above: Performed By: #### L [id number] ####[facility] ([facility])[address] [place] [address] Monocytes/100 WBC (Bld) 8.5 % Normal 5.0-12.0 [facility] Comment on above: Performed By: #### L [id number] ####[facility] ([facility])[address] [place] [address] Neutrophils (Bld) [#/Vol] 3.29 10*3/uL Normal 1.60-7.60 [facility] Comment on above: Performed By: #### L [id number] ####[facility] ([facility])[address] [place] [address] Neutrophils/100 WBC (Bld) 66.4 % Normal 40.0-72.0 [facility] Comment on above: Performed By: #### L [id number] ####[facility] ([facility])[address] [place] [address] NRBC (PER 100 WBCS) BY AUTOMATED COUNT 0.0 % Normal 0 [facility] Comment on above: Performed By: #### L [id number] ####[facility] ([facility])[address] [place] [address] PLATELETS (10*3/UL) IN BLOOD AUTOMATED COUNT 142 10*3/uL Low 150-400 [facility] Comment on above: Performed By: #### L [id number] ####[facility] ([facility])[address] [place] [address] RBC (Bld) [#/Vol] 3.73 10*6/uL Low 4.20-5.70 [facility] Comment on above: Performed By: #### L [id number] ####[facility] ([facility])[address] [place] [address] WBC (Bld) [#/Vol] 4.95 10*3/uL Normal 4.00-10.60 [facility] Comment on above: Performed By: #### L [id number] ####[facility] ([facility])[address] [place] [address] COMPREHENSIVE METABOLIC PANE Braulio 03-26-2024 Albumin [Mass/Vol] 3.9 g/dL Normal 3.5-5.7 [facility] Comment on above: Performed By: #### L [id number] ####[facility] (BEAKER)[address] [place] [address] ALP [Catalytic activity/Vol] 49 U/L Normal 34-104 [facility] Comment on above: Performed By: #### L [id number] ####[facility] (BEAKER)[address] [place] [address] ALT [Catalytic activity/Vol] 13 U/L Normal 7-52 [facility] Comment on above: Performed By: #### L [id number] ####[facility] (BEAKER)[address] [place] [address] Anion gap [Moles/Vol] 11 mmol/L Normal 7-20 [facility] Comment on above: Performed By: #### L [id number] ####[facility] (BEAKER)[address] [place] [address] AST [Catalytic activity/Vol] 12 U/L Low 13-39 [facility] Comment on above: Performed By: #### L [id number] ####[facility] (BEAKER)[address] [place] [address] Bilirubin [Mass/Vol] 0.8 mg/dL Normal 0.3-1.0 [facility] Comment on above: Performed By: #### L [id number] ####[facility] (BEAKER)[address] [place] [address] Calcium [Mass/Vol] 8.8 mg/dL Normal 8.6-10.3 [facility] Comment on above: Performed By: #### L [id number] ####[facility] (BEAKER)[address] [place] [address] Chloride [Moles/Vol] 102 mmol/L Normal 98-107 [facility] Comment on above: Performed By: #### L [id number] ####[facility] (BEAKER)[address] [place] [address] CO2 [Moles/Vol] 26 mmol/L Normal 21-31 [facility] Comment on above: Performed By: #### L [id number] ####[facility] ([facility])[address] [place] [address] Creatinine [Mass/Vol] 0.84 mg/dL Normal 0.70-1.30 [facility] Comment on above: Performed By: #### L [id number] ####[facility] ([facility])[address] [place] [address] GLOMERULAR FILTRATION RATE ML/MIN/1.73 SQ M.PREDICTED 106.2 mL/min/1.73m*2 Normal >60.0 [facility] Comment on above: Result Comment: [facility]???s estimated glomerular filtration rate (eGFR) will no [...] of individuals. Performed By: #### L [id number] ####[facility] ([facility])[address] [place] [address] Glucose [Mass/Vol] 93 mg/dL Normal 70-100 [facility] Comment on above: Performed By: #### L [id number] ####[facility] ([facility])[address] [place] [address] Potassium [Moles/Vol] 4.3 mmol/L Normal 3.5-5.1 [facility] Comment on above: Performed By: #### L [id number] ####[facility] ([facility])[address] [place] [address] Protein [Mass/Vol] 6.2 g/dL Normal 6.0-8.3 [facility] Comment on above: Performed By: #### L [id number] ####[facility] (BEAKER)[address] [facility] [facility] [address] Sodium [Moles/Vol] 135 mmol/L Low 136-145 [facility] Comment on above: Performed By: #### L [id number] ####[facility] ([facility])[address] [place] [address] Urea nitrogen [Mass/Vol] 15 mg/dL Normal 7-25 [facility] Comment on above: Performed By: #### L [id number] ####[facility] ([facility])[address] [place] [address] UREA NITROGEN/CREATININE (MASS RATIO) IN SER/PLAS 17.9 Normal [facility] Comment on above: Performed By: #### L [id number] ####[facility] ([facility])[address] [place] [address] MAGNESIUMon 06-25-2023 Magnesium [Mass/Vol] 1.9 mg/dL Normal 1.9-2.7 [facility] Comment on above: Performed By: #### L [id number] ####[facility] ([facility])[address] [place] [address] MRSA/MSSA DNA NASALon 2023 MRSA DNA Negative Normal Negative [facility] Comment on above: Order Comment: Testi ng [...] preclude nasal colonization. Performed By: #### L [id number] ####[facility] ([facility])[address] [facility] [address] MSSA DNA Negative Normal Negative [facility] Comment on above: Order Comment: Testi ng [...] preclude nasal colonization. Performed By: #### L [id number] ####[facility] ([facility])[address] [place] [address] PROTIME-INRon 06-25-2023 INR IN PPP BY COAGULATION ASSAY 1.02 Normal 0.90-1.10 [facility] Comment on above: Result Comment: ACCC P [...] CHEST 1995;[id number]. Performed By: #### L [id number] ####[facility] ([facility])[address] [place] [address] PROTHROMBIN TIME (PT) IN PPP BY COAGULATION ASSAY 13.4 Seconds Normal 12.3-14.8 [facility] Comment on above: Performed By: #### L [id number] ####[facility] ([facility])[address] [place] [address] TYPE AND SCREENon 06-25-2023 AB SCREEN Negative Normal [facility] Comment on above: Performed By: #### L [id number] ####[facility], ABO group Nom (Bld) A Normal [facility] Comment on above: Performed By: #### L [id number] ####[facility], RH TYPE IN BLOOD Negative Normal [facility] Comment on above: Performed By: #### L [id number] ####[facility] BLOOD BANK, URINALYSISon 06-25-2023 BILIRUBIN, TOTAL PRESENCE IN URINE Negative Normal Negative [facility] Comment on above: Performed By: #### L [id number] ####[facility] HOSP[facility] LAB (BEAKER)[address] [place] [address] Clarity (U) Clear Normal Clear [facility] Comment on above: Performed By: #### L [id number] ####[facility] (BEAKER)[address] [place] [address] Color (U) Kylie Abnormal Yellow [facility] Comment on above: Performed By: #### L [id number] ####[facility] (BEAKER)[address] [place] [address] Glucose (U) [Mass/Vol] Negative Normal Negative [facility] Comment on above: Performed By: #### L [id number] ####[facility] (BEAKER)[address] [place] [address] HEMOGLOBIN PRESENCE IN URINE Negative Normal Negative [facility] Comment on above: Performed By: #### L [id number] ####[facility] LAB (BEAKER)[address] [place] [address] Ketones Ql (U) Negative Normal Negative [facility] Comment on above: Performed By: #### L [id number] ####[facility] (BEAKER)[address] [place] [address] LEUKOCYTE ESTERASE PRESENCE IN URINE BY TEST STRIP Negative Normal Negative [facility] Comment on above: Performed By: #### L [id number] ####[facility] (BEAKER)[address] [place] [address] NITRITE PRESENCE IN URINE Negative Normal Negative [facility] Comment on above: Performed By: #### L [id number] ####[facility] ([facility])[address] [place] [address] pH (U) 5.0 [pH] Normal 5.0-8.0 [facility] Comment on above: Performed By: #### L [id number] ####[facility] LAB ([facility])[address] [place] [address] Protein (U) [Mass/Vol] 100 mg/dL Abnormal Negative [facility] Comment on above: Performed By: #### L [id number] ####[facility] LAB ([facility])[address] [place] [address] Specific gravity (U) [Rel density] 1.033 High 1.015-1.020 [facility] Comment on above: Performed By: #### L [id number] ####[facility] ([facility])[address] [place] [address] UROBILINOGEN (EU/DL) IN URINE 2.0 EU/dL Abnormal Negative [facility] Comment on above: Performed By: #### L [id number] ####[facility] ([facility])[address] [place] [address] URINALYSIS MICROSCOPICon CALCIUM OXALATE CRYSTALS (#/HPF) IN URINE Occasional Abnormal None Seen [facility] Comment on above: Performed By: #### L [id number] ####[facility] ([facility])[address] [place] [address] CASTS IN URINE Normal [facility] Comment on above: Performed By: #### L [id number] ####[facility] ([facility])[address] [place] [address] CRYSTALS IN URINE Present Abnormal None Seen [facility] Comment on above: Performed By: #### L [id number] ####[facility] ([facility])[address] [place] [address] MUCUS (#/HPF) IN URINE SEDIMENT Moderate Abnormal None Seen, Occasional, Few [facility] Comment on above: Performed By: #### L [id number] ####[facility] ([facility])[address] [place] [address] RBC (#/HPF) IN URINE SEDIMENT 3-5 Abnormal None Seen [facility] Comment on above: Performed By: #### L [id number] ####[facility] ([facility])[address] [place] [address] SQUAMOUS EPITHELIAL CELLS (#/HPF) IN URINE SEDIMENT Few Abnormal None Seen, Occasional [facility] Comment on above: Performed By: #### L [id number] ####[facility] ([facility])[address] [place] [address] WBC (LEUKOCYTE) (#/HPF) IN URINE SEDIMENT 0-2 Abnormal None Seen [facility] Comment on above: Performed By: #### L [id number] ####[facility] ([facility])[address] [place] [address] 30on 06-24-2023 30 Normal [facility] 30 Normal [facility] 30 Normal [facility] ANESon 06-24-2023 ANES Normal [facility] CBC WITH AUTO DIFFERENTIALon 06-24-2023 Basophils (Bld) [#/Vol] 0.03 10*3/uL Normal 0.00-0.20 [facility] Comment on above: Performed By: #### L [id number] ####[facility] ([facility])[address] [place] [address] Basophils/100 WBC (Bld) 0.4 % Normal 0.0-1.0 [facility] Comment on above: Performed By: #### L [id number] ####[facility] ([facility])[address] [place] [address] Eosinophils (Bld) [#/Vol] 0.57 10*3/uL High 0.00-0.50 [facility] Comment on above: Performed By: #### L [id number] ####[facility] ([facility])[address] [place] [address] Eosinophils/100 WBC (Bld) 7.7 % High 0.0-6.0 [facility] Comment on above: Performed By: #### L [id number] ####[facility] ([facility])[address] [place] [address] Erythrocyte distribution width (RBC) [Ratio] 16.3 % High 11.5-15.0 [facility] Comment on above: Performed By: #### L [id number] ####[facility] ([facility])[address] [place] [address] ERYTHROCYTE MEAN CORPUSCULAR HEMOGLOBIN CONCENTRATION (G/DL) BY AUTOMATED 33.1 g/dL Normal 32.0-35.0 [facility] Comment on above: Performed By: #### L [id number] ####[facility] ([facility])[address] [place] [address] Hematocrit (Bld) [Volume fraction] 35.3 % Low 39.0-55.0 [facility] Comment on above: Performed By: #### L [id number] ####[facility] ([facility])[address] [place] [address] Hemoglobin (Bld) [Mass/Vol] 11.7 g/dL Low 13.0-17.0 [facility] Comment on above: Performed By: #### L [id number] ####[facility] ([facility])[address] [place] [address] Immature granulocytes (Bld) [#/Vol] 0.03 10*3/uL Normal 0.00-0.20 [facility] Comment on above: Performed By: #### L [id number] ####[facility] ([facility])[address] [place] [address] Immature granulocytes/100 WBC (Bld) 0.4 % Normal 0.0-1.0 [facility] Comment on above: Performed By: #### L [id number] ####[facility] ([facility])[address] [place] [address] Lymphocytes (Bld) [#/Vol] 1.05 10*3/uL Low 1.20-4.00 [facility] Comment on above: Performed By: #### L [id number] ####[facility] LAB (BEAKER)[address] [place] [address] Lymphocytes/100 WBC (Bld) 14.2 % Low 20.0-45.0 [facility] Comment on above: Performed By: #### L [id number] ####[facility] ([facility])[address] [place] [address] MCH (RBC) [Entitic mass] 29.3 pg Normal 27.0-33.0 [facility] Comment on above: Performed By: #### L [id number] ####[facility] LAB (BEAKER)[address] [place] [address] MCV (RBC) [Entitic vol] 88.5 fL Normal 82.0-98.0 [facility] Comment on above: Performed By: #### L [id number] ####[facility] LAB (BEAKER)[address] [place] [address] Monocytes (Bld) [#/Vol] 0.50 10*3/uL Normal 0.10-1.00 [facility] Comment on above: Performed By: #### L [id number] ####[facility] LAB (BEAKER)[address] [place] [address] Monocytes/100 WBC (Bld) 6.8 % Normal 5.0-12.0 [facility] Comment on above: Performed By: #### L [id number] ####[facility] LAB (BEAKER)[address] [place] [address] Neutrophils (Bld) [#/Vol] 5.20 10*3/uL Normal 1.60-7.60 [facility] Comment on above: Performed By: #### L [id number] ####[facility] LAB (BEAKER)[address] [place] [address] Neutrophils/100 WBC (Bld) 70.5 % Normal 40.0-72.0 [facility] Comment on above: Performed By: #### L [id number] ####[facility] ([facility])[address] [place] [address] NRBC (PER 100 WBCS) BY AUTOMATED COUNT 0.0 % Normal 0 [facility] Comment on above: Performed By: #### L [id number] ####[facility] ([facility])[address] [place] [address] PLATELETS (10*3/UL) IN BLOOD AUTOMATED COUNT 141 10*3/uL Low 150-400 [facility] Comment on above: Performed By: #### L [id number] ####[facility] ([facility])[address] [place] [address] RBC (Bld) [#/Vol] 3.99 10*6/uL Low 4.20-5.70 [facility] Comment on above: Performed By: #### L [id number] ####[facility] ([facility])[address] [place] [address] WBC (Bld) [#/Vol] 7.38 10*3/uL Normal 4.00-10.60 [facility] Comment on above: Performed By: #### L [id number] ####[facility] ([facility])[address] [place] [address] COMPREHENSIVE METABOLIC PANE Braulio 06-24-2023 Albumin [Mass/Vol] 4.1 g/dL Normal 3.5-5.7 [facility] Comment on above: Performed By: #### L [id number] ####[facility] ([facility])[address] [place] [address] ALP [Catalytic activity/Vol] 53 U/L Normal 34-104 [facility] Comment on above: Performed By: #### L [id number] ####[facility] LAB (BEAKER)[address] [place] [address] ALT [Catalytic activity/Vol] 12 U/L Normal 7-52 [facility] Comment on above: Performed By: #### L [id number] ####[facility] LAB (BEAKER)[address] [place] [address] Anion gap [Moles/Vol] 12 mmol/L Normal 7-20 [facility] Comment on above: Performed By: #### L [id number] ####[facility] LAB (BEAKER)[address] [place] [address] AST [Catalytic activity/Vol] 11 U/L Low 13-39 [facility] Comment on above: Performed By: #### L [id number] ####[facility] LAB (BEAKER)[address] [place] [address] Bilirubin [Mass/Vol] 0.9 mg/dL Normal 0.3-1.0 [facility] Comment on above: Performed By: #### L [id number] ####[facility] LAB (BEAKER)[address] [place] [address] Calcium [Mass/Vol] 9.0 mg/dL Normal 8.6-10.3 [facility] Comment on above: Performed By: #### L [id number] ####[facility] LAB (BEAKER)[address] [place] [address] Chloride [Moles/Vol] 100 mmol/L Normal 98-107 [facility] Comment on above: Performed By: #### L [id number] ####[facility] LAB (BEAKER)[address] [place] [address] CO2 [Moles/Vol] 26 mmol/L Normal 21-31 [facility] Comment on above: Performed By: #### L [id number] ####[facility] LAB (BEAKER)[address] [place] [address] Creatinine [Mass/Vol] 0.84 mg/dL Normal 0.70-1.30 [facility] Comment on above: Performed By: #### L [id number] ####[facility] LAB (BEAKER)[address] [place] [address] GLOMERULAR FILTRATION RATE ML/MIN/1.73 SQ M.PREDICTED 106.2 mL/min/1.73m*2 Normal >60.0 [facility] Comment on above: Result Comment: The [facility]???s estimated glomerular filtration rate (eGFR) will no [...] of individuals. Performed By: #### L [id number] ####[facility] ([facility])[address] [place] [address] Glucose [Mass/Vol] 95 mg/dL Normal 70-100 [facility] Comment on above: Performed By: #### L [id number] ####[facility] ([facility])[address] [place] [address] Potassium [Moles/Vol] 3.9 mmol/L Normal 3.5-5.1 [facility] Comment on above: Performed By: #### L [id number] ####[facility] ([facility])[address] [place] [address] Protein [Mass/Vol] 6.5 g/dL Normal 6.0-8.3 [facility] Comment on above: Performed By: #### L [id number] ####[facility] ([facility])[address] [place] [address] Sodium [Moles/Vol] 134 mmol/L Low 136-145 [facility] Comment on above: Performed By: #### L [id number] ####[facility] ([facility])[address] [place] [address] Urea nitrogen [Mass/Vol] 12 mg/dL Normal 7-25 [facility] Comment on above: Performed By: #### L [id number] ####[facility] ([facility])[address] [place] [address] UREA NITROGEN/CREATININE (MASS RATIO) IN SER/PLAS 14.3 Normal [facility] Comment on above: Performed By: #### L [id number] ####[facility] LAB (BEAKER)[address] [place] [address] Documentationon 06-24-2023 Documentation Normal [facility] HPon 06-24-2023 HP Normal [facility] MAGNESIUMon 06-24-2023 Magnesium [Mass/Vol] 1.9 mg/dL Normal 1.9-2.7 [facility] Comment on above: Performed By: #### L [id number] ####[facility] LAB (BEAKER)[address] [place] [address] 30on 06-23-2023 30 Normal [facility] 30 [facility] CBC WITH AUTO DIFFERENTIALon 06-23-2023 Basophils (Bld) [#/Vol] 0.04 10*3/uL Normal 0.00-0.20 [facility] Comment on above: Performed By: #### L [id number] ####[facility] LAB (BEAKER)[address] [place] [address] Basophils/100 WBC (Bld) 0.5 % Normal 0.0-1.0 [facility] Comment on above: Performed By: #### L [id number] ####[facility] LAB (BEAKER)[address] [place] [address] Eosinophils (Bld) [#/Vol] 0.56 10*3/uL High 0.00-0.50 [facility] Comment on above: Performed By: #### L [id number] ####[facility] LAB (BEAKER)[address] [place] [address] Eosinophils/100 WBC (Bld) 7.5 % High 0.0-6.0 [facility] Comment on above: Performed By: #### L [id number] ####[facility] LAB (BEAKER)[address] [place] [address] Erythrocyte distribution width (RBC) [Ratio] 16.7 % High 11.5-15.0 [facility] Comment on above: Performed By: #### L [id number] ####[facility] (BEAKER)[address] [place] [address] ERYTHROCYTE MEAN CORPUSCULAR HEMOGLOBIN CONCENTRATION (G/DL) BY AUTOMATED 33.2 g/dL Normal 32.0-35.0 [facility] Comment on above: Performed By: #### L [id number] ####[facility] LAB (BEAKER)[address] [place] [address] Hematocrit (Bld) [Volume fraction] 34.9 % Low 39.0-55.0 [facility] Comment on above: Performed By: #### L [id number] ####[facility] LAB (BEAKER)[address] [place] [address] Hemoglobin (Bld) [Mass/Vol] 11.6 g/dL Low 13.0-17.0 [facility] Comment on above: Performed By: #### L [id number] ####[facility] LAB (BEAKER)[address] [place] [address] Immature granulocytes (Bld) [#/Vol] 0.03 10*3/uL Normal 0.00-0.20 [facility] Comment on above: Performed By: #### L [id number] ####[facility] LAB (BEAKER)[address] [place] [address] Immature granulocytes/100 WBC (Bld) 0.4 % Normal 0.0-1.0 [facility] Comment on above: Performed By: #### L [id number] ####[facility] LAB (BEAKER)[address] [place] [address] Lymphocytes (Bld) [#/Vol] 1.08 10*3/uL Low 1.20-4.00 [facility] Comment on above: Performed By: #### L [id number] ####[facility] LAB (BEAKER)[address] [place] [address] Lymphocytes/100 WBC (Bld) 14.5 % Low 20.0-45.0 [facility] Comment on above: Performed By: #### L [id number] ####[facility] LAB (BEAKER)[address] [place] [address] MCH (RBC) [Entitic mass] 29.6 pg Normal 27.0-33.0 [facility] Comment on above: Performed By: #### L [id number] ####[facility] (BEAKER)[address] [place] [address] MCV (RBC) [Entitic vol] 89.0 fL Normal 82.0-98.0 [facility] Comment on above: Performed By: #### L [id number] ####[facility] LAB (BEAKER)[address] [place] [address] Monocytes (Bld) [#/Vol] 0.50 10*3/uL Normal 0.10-1.00 [facility] Comment on above: Performed By: #### L [id number] ####[facility] (BEAKER)[address] [place] [address] Monocytes/100 WBC (Bld) 6.7 % Normal 5.0-12.0 [facility] Comment on above: Performed By: #### L [id number] ####[facility] LAB (BEAKER)[address] [place] [address] Neutrophils (Bld) [#/Vol] 5.24 10*3/uL Normal 1.60-7.60 [facility] Comment on above: Performed By: #### L [id number] ####[facility] LAB (BEAKER)[address] [place] [address] Neutrophils/100 WBC (Bld) 70.4 % Normal 40.0-72.0 [facility] Comment on above: Performed By: #### L [id number] ####[facility] LAB (BEAKER)[address] [place] [address] NRBC (PER 100 WBCS) BY AUTOMATED COUNT 0.0 % Normal 0 [facility] Comment on above: Performed By: #### L [id number] ####[facility] LAB (BEAKER)[address] [place] [address] PLATELETS (10*3/UL) IN BLOOD AUTOMATED COUNT 120 10*3/uL Low 150-400 [facility] Comment on above: Performed By: #### L [id number] ####[facility] ([facility])[address] [place] [address] RBC (Bld) [#/Vol] 3.92 10*6/uL Low 4.20-5.70 [facility] Comment on above: Performed By: #### L [id number] ####[facility] ([facility])[address] [place] [address] WBC (Bld) [#/Vol] 7.45 10*3/uL Normal 4.00-10.60 [facility] Comment on above: Performed By: #### L [id number] ####[facility] ([facility])[address] [place] [address] COMPREHENSIVE METABOLIC PANE Braulio 06-23-2023 Albumin [Mass/Vol] 4.1 g/dL Normal 3.5-5.7 [facility] Comment on above: Performed By: #### L [id number] ####[facility] ([facility])[address] [place] [address] ALP [Catalytic activity/Vol] 52 U/L Normal 34-104 [facility] Comment on above: Performed By: #### L [id number] ####[facility] ([facility])[address] [place] [address] ALT [Catalytic activity/Vol] 12 U/L Normal 7-52 [facility] Comment on above: Performed By: #### L [id number] ####[facility] ([facility])[address] [place] [address] Anion gap [Moles/Vol] 9 mmol/L Normal 7-20 [facility] Comment on above: Performed By: #### L [id number] ####[facility] ([facility])[address] [place] [address] AST [Catalytic activity/Vol] 9 U/L Low 13-39 [facility] Comment on above: Performed By: #### L [id number] ####[facility] ([facility])[address] [place] [address] Bilirubin [Mass/Vol] 1.0 mg/dL Normal 0.3-1.0 [facility] Comment on above: Performed By: #### L [id number] ####[facility] ([facility])[address] [place] [address] Calcium [Mass/Vol] 8.7 mg/dL Normal 8.6-10.3 [facility] Comment on above: Performed By: #### L [id number] ####[facility] ([facility])[address] [place] [address] Chloride [Moles/Vol] 101 mmol/L Normal 98-107 [facility] Comment on above: Performed By: #### L [id number] ####[facility] ([facility])[address] [place] [address] CO2 [Moles/Vol] 27 mmol/L Normal 21-31 [facility] Comment on above: Performed By: #### L [id number] ####[facility] ([facility])[address] [place] [address] Creatinine [Mass/Vol] 0.77 mg/dL Normal 0.70-1.30 [facility] Comment on above: Performed By: #### L [id number] ####[facility] ([facility])[address] [place] [address] GLOMERULAR FILTRATION RATE ML/MIN/1.73 SQ M.PREDICTED 109.1 mL/min/1.73m*2 Normal >60.0 [facility] Comment on above: Result Comment: The [facility]???s estimated glomerular filtration rate (eGFR) will no [...] of individuals. Performed By: #### L [id number] ####[facility] ([facility])[address] [place] [address] Glucose [Mass/Vol] 106 mg/dL High 70-100 [facility] Comment on above: Performed By: #### L [id number] ####[facility] ([facility])[address] [place] [address] Potassium [Moles/Vol] 4.1 mmol/L Normal 3.5-5.1 [facility] Comment on above: Performed By: #### L [id number] ####[facility] ([facility])[address] [place] [address] Protein [Mass/Vol] 6.2 g/dL Normal 6.0-8.3 [facility] Comment on above: Performed By: #### L [id number] ####[facility] ([facility])[address] [place] [address] Sodium [Moles/Vol] 133 mmol/L Low 136-145 [facility] Comment on above: Performed By: #### L [id number] ####[facility] ([facility])[address] [place] [address] Urea nitrogen [Mass/Vol] 13 mg/dL Normal 7-25 [facility] Comment on above: Performed By: #### L [id number] ####[facility] ([facility])[address] [place] [address] UREA NITROGEN/CREATININE (MASS RATIO) IN SER/PLAS 16.9 [facility] Comment on above: Performed By: #### L [id number] ####[facility] ([facility])[address] [place] [address] CONSULTon 06-23-2023 CONSULT Normal [facility] 30on 06-22-2023 30 Normal [facility] 30 Normal [facility] APTTon 06-22-2023 ACTIVATED PARTIAL THROMBOPLASTIN TIME IN PPP BY COAGULATION ASSAY 31.2 Seconds Normal 25.0-35.0 [facility] Comment on above: Result Comment: Clin ical significance of the APTT is questionable in the presence of heparin. Performed By: #### L [id number] ####[facility] ([facility])[address] [place] [address] CBC WITH AUTO DIFFERENTIALon 06-22-2023 Basophils (Bld) [#/Vol] 0.03 10*3/uL Normal 0.00-0.20 [facility] Comment on above: Performed By: #### L [id number] ####[facility] ([facility])[address] [place] [address] Basophils/100 WBC (Bld) 0.4 % Normal 0.0-1.0 [facility] Comment on above: Performed By: #### L [id number] ####[facility] ([facility])[address] [place] [address] Eosinophils (Bld) [#/Vol] 0.39 10*3/uL Normal 0.00-0.50 [facility] Comment on above: Performed By: #### L [id number] ####[facility] ([facility])[address] [place] [address] Eosinophils/100 WBC (Bld) 5.0 % Normal 0.0-6.0 [facility] Comment on above: Performed By: #### L [id number] ####[facility] ([facility])[address] [place] [address] Erythrocyte distribution width (RBC) [Ratio] 16.3 % High 11.5-15.0 [facility] Comment on above: Performed By: #### L [id number] ####[facility] ([facility])[address] [place] [address] ERYTHROCYTE MEAN CORPUSCULAR HEMOGLOBIN CONCENTRATION (G/DL) BY AUTOMATED 33.1 g/dL Normal 32.0-35.0 [facility] Comment on above: Performed By: #### L [id number] ####[facility] ([facility])[address] [place] [address] Hematocrit (Bld) [Volume fraction] 35.6 % Low 39.0-55.0 [facility] Comment on above: Performed By: #### L [id number] ####[facility] ([facility])[address] [place] [address] Hemoglobin (Bld) [Mass/Vol] 11.8 g/dL Low 13.0-17.0 [facility] Comment on above: Performed By: #### L [id number] ####[facility] ([facility])[address] [place] [address] Immature granulocytes (Bld) [#/Vol] 0.02 10*3/uL Normal 0.00-0.20 [facility] Comment on above: Performed By: #### L [id number] ####[facility] ([facility])[address] [place] [address] Immature granulocytes/100 WBC (Bld) 0.3 % Normal 0.0-1.0 [facility] Comment on above: Performed By: #### L [id number] ####[facility] ([facility])[address] [place] [address] Lymphocytes (Bld) [#/Vol] 0.72 10*3/uL Low 1.20-4.00 [facility] Comment on above: Performed By: #### L [id number] ####[facility] ([facility])[address] [place] [address] Lymphocytes/100 WBC (Bld) 9.2 % Low 20.0-45.0 [facility] Comment on above: Performed By: #### L [id number] ####[facility] ([facility]ER)[address] [place] [address] MCH (RBC) [Entitic mass] 29.0 pg Normal 27.0-33.0 [facility] Comment on above: Performed By: #### L [id number] ####[facility] ([facility]AKER)[address] [place] [address] MCV (RBC) [Entitic vol] 87.5 fL Normal 82.0-98.0 [facility] Comment on above: Performed By: #### L [id number] ####[facility] ([facility])[address] [place] [address] Monocytes (Bld) [#/Vol] 0.41 10*3/uL Normal 0.10-1.00 [facility] Comment on above: Performed By: #### L [id number] ####[facility] ([facility]ER)[address] [place] [address] Monocytes/100 WBC (Bld) 5.2 % Normal 5.0-12.0 [facility] Comment on above: Performed By: #### L [id number] ####[facility] ([facility]ER)[address] [place] [address] Neutrophils (Bld) [#/Vol] 6.24 10*3/uL Normal 1.60-7.60 [facility] Comment on above: Performed By: #### L [id number] ####[facility] ([facility])[address] [place] [address] Neutrophils/100 WBC (Bld) 79.9 % High 40.0-72.0 [facility] Comment on above: Performed By: #### L [id number] ####[facility] ([facility]ER)[address] [place] [address] NRBC (PER 100 WBCS) BY AUTOMATED COUNT 0.0 % Normal 0 [facility] Comment on above: Performed By: #### L [id number] ####[facility] ([facility]ER)[address] [place] [address] PLATELETS (10*3/UL) IN BLOOD AUTOMATED COUNT 110 10*3/uL Low 150-400 [facility] Comment on above: Performed By: #### L [id number] ####[facility] ([facility]ER)[address] [place] [address] RBC (Bld) [#/Vol] 4.07 10*6/uL Low 4.20-5.70 [facility] Comment on above: Performed By: #### L [id number] ####[facility] ([facility])[address] [place] [address] WBC (Bld) [#/Vol] 7.81 10*3/uL Normal 4.00-10.60 [facility] Comment on above: Performed By: #### L [id number] ####[facility] ([facility])[address] [place] [address] CKon 06-22-2023 CREATINE KINASE (U/L) IN SER/PLAS 22.0 U/L Low 30.0-223.0 [facility] Comment on above: Performed By: #### L [id number] ####[facility] ([facility])[address] [place] [address] COMPREHENSIVE METABOLIC PANE Braulio 06-22-2023 Albumin [Mass/Vol] 4.0 g/dL Normal 3.5-5.7 [facility] Comment on above: Performed By: #### L [id number] ####[facility] ([facility]ER)[address] [place] [address] ALP [Catalytic activity/Vol] 52 U/L Normal 34-104 [facility] Comment on above: Performed By: #### L [id number] ####[facility] ([facility]ER)[address] [place] [address] ALT [Catalytic activity/Vol] 13 U/L Normal 7-52 [facility] Comment on above: Performed By: #### L [id number] ####[facility] ([facility]ER)[address] [place] [address] Anion gap [Moles/Vol] 12 mmol/L Normal 7-20 [facility] Comment on above: Performed By: #### L [id number] ####[facility] ([facility]ER)[address] [place] [address] AST [Catalytic activity/Vol] 9 U/L Low 13-39 [facility] Comment on above: Performed By: #### L [id number] ####[facility] ([facility]ER)[address] [place] [address] Bilirubin [Mass/Vol] 1.1 mg/dL High 0.3-1.0 [facility] Comment on above: Performed By: #### L [id number] ####[facility] ([facility])[address] [place] [address] Calcium [Mass/Vol] 9.1 mg/dL Normal 8.6-10.3 [facility] Comment on above: Performed By: #### L [id number] ####[facility] ([facility]ER)[address] [place] [address] Chloride [Moles/Vol] 100 mmol/L Normal 98-107 [facility] Comment on above: Performed By: #### L [id number] ####[facility] ([facility]ER)[address] [place] [address] CO2 [Moles/Vol] 26 mmol/L Normal 21-31 [facility] Comment on above: Performed By: #### L [id number] ####[facility] ([facility]ER)[address] [place] [address] Creatinine [Mass/Vol] 0.82 mg/dL Normal 0.70-1.30 [facility] Comment on above: Performed By: #### L [id number]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 Echocardiographyon Echocardiography [id number]#1.00TIFF Normal [facility] Outside Hospital Correspo ndenceon 06-03-2023 Outside Hospital Correspondence [id number]#1.00TIFF Normal [facility] Outside Hospital Correspondence [id number]#1.00TIFF Normal [facility] Outside [facility] Correspondence [id number]#1.00TIFF Normal [facility] RAD - MISCon 06-03-2023 RAD - MISC [id number]#1.00TIFF Normal [facility] RAD - MISC [id number]#1.00TIFF Normal [facility] RAD - MRI Reporton RAD - MRI Report [id number]#1.00TIFF Normal [facility] ED Note-Physicianon 05-31-19 24 ED Note-Physician [id number]#1.00TIFF Normal [facility] ED Note-Physicianon 05-29-19 24 ED Note-Physician [id number]#1.00TIFF Normal [facility] RAD - MISCon 05-29-2023 RAD - MISC [id number]#1.00TIFF Normal [facility] RAD - MISC [id number]#1.00TIFF Normal [facility] RAD - MISC [id number]#1.00TIFF Normal [facility] Consultation Noteon 05-23-19 24 Consultation Note [id number]#1.00TIFF Normal [facility] Operative Reporton Operative Report [id number]#1.00TIFF Normal [facility] MR SHOULDER LEFT WO IV CONTR Kyle [...] Not Available Comment on above: Order Comment: [facility] - C9 Approved Patient had Left Shoulder surgery 1 year ago Previous MRI Lab Reportson 03-14-2023 Lab Reports [id number]#1.00TIFF Normal [facility] Lab Miscellaneous-LCon 03-13 Lab Miscellaneous See Ref Report Invalid Interpretation Code [facility] Comment on above: Performed By: #### 1 [id number] ####[facility] [address] [place] [address] Reference Lab Reporton 03-13 Reference Lab Report [id number]#1.00TIFF Normal [facility] Lab Miscellaneous-LCon 03-12 Lab Miscellaneous See Ref Report Invalid Interpretation Code [facility] Comment on above: Result Comment: Perf ormed at: [address] [id number] PhD João Blankenship See scanned report Performed at: [address] [id number] PhD João Blankenship Performed By: #### 1 [id number] #### [facility] Laboratory [address] [place] [address] Reference Lab Reporton 03-12 Reference Lab Report [id number]#1.00TIFF Normal [facility] Lab Miscellaneous-LCon 03-08 Lab Miscellaneous see ref cleaning laborer Invalid Interpretation Code [facility] Comment on above: Performed By: #### 1 [id number] #### [facility] Laboratory [address] [place] [address] Reference Lab Reporton 03-08 Reference Lab Report [id number]#1.00TIFF Normal [facility] Auto Diffon 03-07-2023 Basophils/100 WBC (Bld) 0.7 % Normal 0.0-2.0 [facility] Comment on above: Order Comment: Order Added by Discern Expert. Performed By: #### 2 [id number], [id number], [id number] #### [facility] Laboratory [address] [place] [address] Basophils/Leukocytes Auto (Bld) [Pure # fraction] 0.1 E9/L Normal 0.0-0.2 [facility] Comment on above: Order Comment: Order Added by Discern Expert. Performed By: #### 2 871127, 1595404, [id number] #### [facility] Laboratory [address] [place] [address] Eosinophils/100 WBC (Bld) 2.6 % Normal 0.0-8.0 [facility] Comment on above: Order Comment: Order Added by Discern Expert. Performed By: #### 2 929016, 0726339, [id number] #### [facility] Laboratory [address] [place] [address] Eosinophils/Leukocyt es Auto (Bld) [Pure # fraction] 0.2 E9/L Normal 0.0-0.5 [facility] Comment on above: Order Comment: Order Added by Discern Expert. Performed By: #### 2 113410, 2450671, [id number] #### [facility] Laboratory [address] [place] [address] Lymphocytes/100 WBC (Bld) 18.6 % Normal 14.0-50.0 [facility] Comment on above: Order Comment: Order Added by Wilbert Expert. Performed By: #### 2 848384, 1236696, [id number] #### [facility] Laboratory [address] [place] [address] Lymphocytes/Leukocyt es Auto (Bld) [Pure # fraction] 1.3 E9/L Normal 1.0-4.0 [facility] Comment on above: Order Comment: Order Added by Discern Expert. Performed By: #### 2 303315, 6108754, 8769482 #### [facility] Laboratory [address] [place] [address] Monocytes/100 WBC (Bld) 10.3 % Normal 4.0-14.0 [facility] Comment on above: Order Comment: Order Added by Discern Expert. Performed By: #### 2 514752, 0393064, 2478872 #### [facility] Laboratory [address] [place] [address] Monocytes/Leukocytes Auto (Bld) [Pure # fraction] 0.7 E9/L Normal 0.2-1.0 [facility] Comment on above: Order Comment: Order Added by Wilbert Expert. Performed By: #### 2 438814, 4197613, 5238607 #### [facility] Laboratory [address] [place] [address] Neutrophils/100 WBC (Bld) 67.8 % Normal 36.0-75.0 [facility] Comment on above: Order Comment: Order Added by Discern Expert. Performed By: #### 2 239179, 2985439, 0579066 #### [facility] Laboratory [address] [place] [address] Neutrophils/Leukocyt es Auto (Bld) [Pure # fraction] 4.8 E9/L Normal 2.0-7.5 [facility] Comment on above: Order Comment: Order Added by Discern Expert. Performed By: #### 2 017055, 8602804, [id number] #### [facility] Laboratory [address] [place] [address] CBC w/ Auto Diffon 3 Erythrocyte distribution width (RBC) [Ratio] 13.1 % Normal 10.9-14.2 [facility] Comment on above: Performed By: #### 2 813152, 3538862, [id number] #### [facility] Laboratory [address] [place] [address] Hematocrit (Bld) [Volume fraction] 39.2 % Normal 37.7-49.0 [facility] Comment on above: Performed By: #### 2 439259, 2739184, [id number] #### [facility] Laboratory [address] [place] [address] Hemoglobin (Bld) [Mass/Vol] 13.4 g/dL Low 13.5-17.5 [facility] Comment on above: Performed By: #### 2 218350, 2311895, 4169690 #### [facility] Laboratory [address] [place] [address] MCH (RBC) [Entitic mass] 29.0 pg Normal 27.0-34.0 [facility] Comment on above: Performed By: #### 2 183434, 5177961, 3269565 #### [facility] Laboratory [address] [place] [address] MCHC (RBC) [Mass/Vol] 34.3 g/dL Normal 31.4-36.0 [facility] Comment on above: Performed By: #### 2 097946, 6483859, 7381427 #### [facility] Laboratory [address] [place] [address] MCV (RBC) [Entitic vol] 84.6 fL Normal 80.0-100.0 [facility] Comment on above: Performed By: #### 2 447445, 8535839, 8760562 #### [facility] Laboratory [address] [place] [address] Platelet mean volume (Bld) [Entitic vol] 7.7 fL Normal 6.4-10.8 [facility] Comment on above: Performed By: #### 2 026994, 7336278, 9902221 #### [facility] Laboratory [address] [place] [address] Platelets (Bld) [#/Vol] 261.0 E9/L Normal 150.0-500.0 [facility] Comment on above: Performed By: #### 2 986055, 1194578, 6613419 #### [facility] Laboratory [address] [place] [address] RBC (Bld) [#/Vol] 4.6 E12/L Normal 4.3-5.9 [facility] Comment on above: Performed By: #### 2 418070, 8110599, 0207489 #### [facility] Laboratory [address] [place] [address] WBC corrected for nucl RBC Auto (Bld) [#/Vol] 7.1 E9/L Normal 4.0-11.0 [facility] Comment on above: Performed By: #### 2 289820, 1890850, [id number] #### [facility] Laboratory [address] [place] [address] CHEMISTRYOrdered By: SYSTEM SYSTEM on 03-07-2023 CRP [Mass/Vol] 1.8 mg/dL Normal <=1.9mg/dL [facility] Remis ol CRPon 03-07-2023 CRP [Mass/Vol] 1.8 mg/dL Normal <=1.9 [facility] Comment on above: Performed By: #### 2 002123, 0018938, [id number] #### [facility] Laboratory [address] [place] [address] Consent for Treatmenton Consent for Treatment [id number]#1.00TIFF Normal [facility] Erythrocyte Sedimentation Ra aniya 03-07-2023 ESR (Bld) [Velocity] 9 mm/h Normal 0-19 [facility] Comment on above: Result Comment: PERF ORMED BY: [place] [address] PATHOLOGIST CAN CLEANER BARI GREENE M.D. Performed By: #### E #### [address] Erythrocyte sedimentation ra te by Photometric methodOrdered By: Huan Cowan on 03-07-2023 ESR Photometric method (Bld) [Velocity] 9 mm/hr 0-19 [facility] HEMATOLOGYOrdered By: SYSTEM SYSTEM on 03-07-2023 [...] 4.8 E9/L Normal 2.0 - 7.5 E9/L FT [facility] HEMATOLOGYOrdered By: Juanita Chen on 03-07-2023 [...] 10.8 fL [facility] Platelets (Bld) [#/Vol] 261.0 E9/L Normal 150.0 - 500.0 E9/L [facility] RBC (Bld) [#/Vol] 4.6 E12/L Normal 4.3 - 5.9 E12/L [facility] WBC corrected for nucl RBC Auto (Bld) [#/Vol] 7.1 E9/L Normal 4.0 - 11.0 E9/L [facility] HemeAutoSS Lab Miscellaneous-LCon 03-07 Test Code 130514 Invalid Interpretation Code [facility] Comment on above: Performed By: #### 1 [id number] #### [facility] Laboratory [address] [place] [address] Test Code TO [facility] Invalid Interpretation Code [facility] Comment on above: Performed By: #### 1 [id number] #### [facility] Laboratory [address] [place] [address] Test Name [place] 6 Invalid Interpretation Code [facility] Comment on above: Performed By: #### 1 [id number] #### [facility] Laboratory [address] [place] [address] Test Name SED RATE/FIREAL Invalid Interpretation Code [facility] Comment on above: Performed By: #### 1 [id number] #### [facility] Laboratory [address] [place] [address] Physician Orderon 03-07-2023 Physician Order [id number] Normal [facility] Reference Laboratory Testing Ordered By: Yasmeen Ca on 03-07-2023 Sodium [Moles/Vol] 287730 mmol/L Invalid Interpretation Code [facility] Test Code TO [facility] Invalid Interpretation Code [facility] Test Name SED RATE/FIREAL Invalid Interpretation Code [facility] Test Name [place] 6 Invalid Interpretation Code [facility] Operative Reporton Operative Report [id number] Normal [facility] Formson 02-27-2023 Forms [id number] Normal [facility] Provider Letteron 02-27-2023 Provider Letter (Inserted Image. Jessica ble to display) [address] [id number] February 27, 2023 NEHAL BAIG [address] [place] [address] : [address] Mazariegos, The above patient has been evaluated at your request for preoperative clearance. After assessment of available pertinent labs and diagnostic tests, I feel this patient is medically optimized for surgery. Final discretion of whether the patient is cleared for surgery remains up to the surgeon/anesthesiologist. Thank you, MOSHE Mota Normal [facility] [facility] Auto Diffon 02-26-2023 Basophils/100 WBC (Bld) 0.6 % Normal 0.0-2.0 [facility] Comment on above: Order Comment: Order Added by Discern Expert. Performed By: #### 2 324896, [id number] ####[address] [address] Basophils/Leukocytes Auto (Bld) [Pure # fraction] 0.1 E9/L Normal 0.0-0.2 [facility] Comment on above: Order Comment: Order Added by Discern Expert. Performed By: #### 2 820466, 6863416 ####[address] [address] Eosinophils/100 WBC (Bld) 2.3 % Normal 0.0-8.0 [facility] Comment on above: Order Comment: Order Added by Discern Expert. Performed By: #### 2 988459, 4807547 ####[address] [address] Eosinophils/Leukocyt es Auto (Bld) [Pure # fraction] 0.2 E9/L Normal 0.0-0.5 [facility] Comment on above: Order Comment: Order Added by Wilbert Expert. Performed By: #### 2 243749, 8150731 ####[address] [address] Lymphocytes/100 WBC (Bld) 16.2 % Normal 14.0-50.0 [facility] Comment on above: Order Comment: Order Added by Wilbert Expert. Performed By: #### 2 667737, 0372836 ####[address] [address] Lymphocytes/Leukocyt es Auto (Bld) [Pure # fraction] 1.5 E9/L Normal 1.0-4.0 [facility] Comment on above: Order Comment: Order Added by Discern Expert. Performed By: #### 2 704302, 4384039 ####[address] [address] Monocytes/100 WBC (Bld) 6.8 % Normal 4.0-14.0 [facility] Comment on above: Order Comment: Order Added by Discern Expert. Performed By: #### 2 438761, 3507012 ####[address] [address] Monocytes/Leukocytes Auto (Bld) [Pure # fraction] 0.6 E9/L Normal 0.2-1.0 [facility] Comment on above: Order Comment: Order Added by Discern Expert. Performed By: #### 2 869953, 2449072 ####[address] [address] Neutrophils/100 WBC (Bld) 74.1 % Normal 36.0-75.0 [facility] Comment on above: Order Comment: Order Added by Discern Expert. Performed By: #### 2 267649, 5916455 ####[address] [address] Neutrophils/Leukocyt es Auto (Bld) [Pure # fraction] 6.6 E9/L Normal 2.0-7.5 [facility] Comment on above: Order Comment: Order Added by Discern Expert. Performed By: #### 2 660809, 5665081 ####[address] [address] CBC w/ Auto Diffon 3 Erythrocyte distribution width (RBC) [Ratio] 13.6 % Normal 10.9-14.2 [facility] Comment on above: Performed By: #### 2 450854, 2519493 ####[address] [address] Hematocrit (Bld) [Volume fraction] 40.5 % Normal 37.7-49.0 [facility] Comment on above: Performed By: #### 2 565615, 1747352 ####[address] [address] Hemoglobin (Bld) [Mass/Vol] 13.9 g/dL Normal 13.5-17.5 [facility] Comment on above: Performed By: #### 2 816007, 1461238 ####[address] [address] MCH (RBC) [Entitic mass] 28.9 pg Normal 27.0-34.0 [facility] Comment on above: Performed By: #### 2 527390, 0782553 ####[address] [address] MCHC (RBC) [Mass/Vol] 34.3 g/dL Normal 31.4-36.0 [facility] Comment on above: Performed By: #### 2 450184, 7694683 ####[address] [address] MCV (RBC) [Entitic vol] 84.2 fL Normal 80.0-100.0 [facility] Comment on above: Performed By: #### 2 665652, 2527855 ####[address] [address] Platelet mean volume (Bld) [Entitic vol] 7.7 fL Normal 6.4-10.8 [facility] Comment on above: Performed By: #### 2 256775, 2547841 ####[address] [address] Platelets (Bld) [#/Vol] 244.0 E9/L Normal 150.0-500.0 [facility] Comment on above: Performed By: #### 2 224517, 0478491 ####[address] [address] RBC (Bld) [#/Vol] 4.8 E12/L Normal 4.3-5.9 [facility] Comment on above: Performed By: #### 2 664012, 8923237 ####[address] [address] WBC corrected for nucl RBC Auto (Bld) [#/Vol] 8.9 E9/L Normal 4.0-11.0 [facility] Comment on above: Performed By: #### 2 406673, 6601692 ####[address] [address] Consent for Treatmenton 01-31 Consent for Treatment [id number]#1.00TIFF Normal [facility] HEMATOLOGYOrdered By: SYSTEM SYSTEM on 02-26-2023 Basophils/100 [...] 34.3 g/dL Normal 31.4 - 36.0 gm/dL [facility] HemeAutoSS MCV (RBC) [Entitic vol] 84.2 fL Normal 80.0 - 100.0 fL [facility] HemeAutoSS Platelet mean volume (Bld) [Entitic vol] 7.7 fL Normal 6.4 - 10.8 fL [facility] HemeAutoSS Platelets (Bld) [#/Vol] 244.0 E9/L Normal 150.0 - 500.0 E9/L [facility] HemeAutoSS RBC (Bld) [#/Vol] 4.8 E12/L Normal 4.3 - 5.9 E12/L [facility] HemeAutoSS WBC corrected for nucl RBC Auto (Bld) [#/Vol] 8.9 E9/L Normal 4.0 - 11.0 E9/L [facility] HemeAutoSS Physician Orderon 02-26-2023 Physician Order [id number]#1.00TIFF Normal [facility] CHEMISTRYOrdered By: SYSTEM SYSTEM on 02-25-2023 CRP [Mass/Vol] 6.7 mg/dL High <=1.9mg/dL [facility] Remis ol CRPon 02-25-2023 CRP [Mass/Vol] 6.7 mg/dL High <=1.9 [facility] Comment on above: Performed By: #### 2 707736 ####[facility] [address] [place] [address] Consent for Treatmenton 01-31 Consent for Treatment [id number]#1.00TIFF Normal [facility] ED Note-Physicianon 02-26-20 ED Note-Physician [id number]#1.00TIFF Normal [facility] Lab Miscellaneous-LCon 02-25 Test Code 766604 Invalid Interpretation Code [facility] Comment on above: Performed By: #### 1 [id number] ####[facility] [address] [place] [address] Test Name Interleukin-6 Invalid Interpretation Code [facility] Comment on above: Performed By: #### 1 [id number] ####[facility] [address] [place] [address] Physician Orderon 02-25-2023 Physician Order [id number]#1.00TIFF Normal [facility] RAD - MISCon 02-25-2023 RAD - MISC [id number]#1.00TIFF Normal [facility] Reference Laboratory Testing Ordered By: Elysia Oseguera on 02-25-2023 Sodium [Moles/Vol] 736403 mmol/L Invalid Interpretation Code [facility] SendOuts Test Name Interleukin-6 Invalid Interpretation Code [facility] SendOutsSS Consultation Noteon 02-20-20 Consultation Note [id number]#1.00TIFF Normal [facility] Operative Reporton 3 Operative Report [id number]#1.00TIFF Normal [facility] Consultation Noteon 01-30-20 Consultation Note [id number]#1.00TIFF [facility] RAD - MRI Reporton 3 RAD - MRI Report [id number]#1.00TIFF Normal [facility] XR cerv spine AP/LAT/FLX/EXT on 01-17-2023 XR cerv spine AP/LAT/FLX/EXT [address] [address] XRay Report Signed Patient: Nehal Baig MR#: [id number] 8 : 1970 Acct:[id number] Age/Sex: 52 / M ADM Date: 01/17/23 Loc: XD Room: Type: [facility] Attending Dr: Siri BERRYC Copies to: [...] Khadijah Roach M.D.01/17/2023 4:22 PM Dictation Location: [place] [address] Transcribed By: [facility] 01/17/23 1622 Dictated By: Khadijah Roach MD 01/17/23 1620 Signed By: 01/17/23 1622 Normal [facility] XR lumbar spine 6V w bending on 01-17-2023 XR lumbar spine 6V w bending [facility] [place] [address] XRay Report Signed Patient: Nehal Baig MR#: [id number] 8 : 1970 Acct:[id number] Age/Sex: 52 / M ADM Date: 01/17/23 Loc: XD Room: Type: [facility] Attending Dr: Siri Quezada [employer]ATIONAL [employer] SPECIALIST-C Copies to: HAIDER Sewell Ordering Provider: HAIDER [...] Christopher Cedeno M.D.01/17/2023 12:51 PM Dictation Location: [place] [address] Transcribed By: [facility] 01/17/23 1251 Dictated By: Christopher Cedeno DO 01/17/23 1246 Signed By: 01/17/23 1251 Normal [facility]-16-2023 RAD - MISC [id number]#1.00TIFF Normal [facility] - MISC [id number]#1.00TIFF Normal [facility] Lab Reportson 01-14-2023 Lab Reports [id number]#1.00TIFF Normal [facility] Lab Reports [id number]#1.00TIFF Normal [facility] Retail - Clinical Noteon Retail - Clinical Note [id number]#1.00TIFF Normal [facility] Ambulatory Visit Summaryon 1 Ambulatory Visit Summary ESSENCENEHAL GAN :1970 Visit Date:01/09/2023 Ambulatory Visit Instructions Your [...] shoulder pain sleep disorder Normal [facility] XR ankle LT min 3V*on 2022 XR ankle LT min 3V* [facility]idya Other XR ankle LT min 3V* [facility] Main [facility]idya Other XR ankle LT min 3V* [address] [facility] cVidya Other XR ankle LT min 3V* [place] [address] [facility] cVidya Other XR ankle LT min 3V* XRay Report [facility] Other XR ankle LT min 3V* Signed [employer] Other XR ankle LT min 3V* Patient: Nehal Baig MR#: [id number] [place] [employer] Other XR ankle LT min 3V* 8 [employer] Other XR ankle LT min 3V* : 1970 Acct:[id number] [employer] Other XR ankle LT min 3V* Age/Sex: 52 / M ADM Date: 12/16/22 [employer] Other XR ankle LT min 3V* Loc: XDUCLY Room: Ty pe: REG CLI [employer] Other XR ankle LT min 3V* Attending Dr: Kelly MALONEY [employer] Other XR ankle LT min 3V* Copies to: HAIDER Larson [employer] Other XR ankle LT min 3V* Ordering Provider: HAIDER Rehman [employer] Other XR ankle LT min 3V* Date of Service: 12/16/22 [employer] Other XR ankle LT min 3V* 24[address]) XR/XR ankle LT min 3V*: LEFT ANKLE PAIN [employer] Other XR ankle LT min 3V* XR ankle LT min 3V* 12/16/2022 10:31 AM [employer] Other XR ankle LT min 3V* SIGNS AND SYMPTOMS: Pain and swelling of the posterior left ankle [employer] Other XR ankle LT min 3V* PROTOCOL: Frontal, lateral, and oblique radiographs of the left ankle [employer] Other XR ankle LT min 3V* COMPARISON: None [employer] Other XR ankle LT min 3V* FINDINGS: [employer] Other XR ankle LT min 3V* The ankle mortise is preserved. There is no evidence of fracture or dislocation. There is Achilles [employer] Other XR ankle LT min 3V* surface calcaneal spurring. There is soft tissue swelling diffusely which is nonspecific. [employer] Other XR ankle LT min 3V* X R/XR ankle LT min 3V* [employer] Other XR ankle LT min 3V* IMPRESSION: Nort [employer] Other XR ankle LT min 3V* No fracture. Nor [employer] Other XR ankle LT min 3V* Diffuse soft tissue swelling. [employer] Other XR ankle LT min 3V* There is Achilles castano rface calcaneal spurring. [employer] Other XR ankle LT min 3V* Impression dictated by: Nehal Horner M.D.12/16/2022 10:42 AM [employer] Other XR ankle LT min 3V* Dictation Location: [facility] [employer] Other XR ankle LT min 3V* Transcribed By: MARLO 12/16/22 1042 [employer] Other XR ankle LT min 3V* Dictated By: Nehal Horner II, MD 12/16/22 1042 [employer] Other XR ankle LT min 3V* Signed By: [employer] Other XR ankle LT min 3V* 12/16/22 1042 No rt [employer] Other XR ankle LT min 3V* [facility] Main [place] [address] [place], [place] [address] XRay Report Signed Patient: Nehal Baig MR#: [id number] 8 : 1970 Acct:[id number] Age/Sex: 52 / M ADM Date: 12/16/22 Loc: XDUCLY Room: Type: [facility] Attending Dr: Kelly MALONEY Copies to: [...] M.D.12/16/2022 10:42 AM Dictation Location: [place] [address] Transcribed By: [facility] 12/16/22 1042 Dictated By: Nehal Horner II, MD 12/16/22 1042 Signed By: 12/16/22 1042 Normal [facility] -- NEHAL BAIG ([id number]) 1970 M Date Time Provider Department 05/28/22 SALOME AGUILLON [facility] During your visit today, we recorded the following information about you: Salome Aguillon APRN.HOIST WORKER 05/28/2022 11:57 AM Signed Please call patient [...] [R80.9] Order(s):PROTEIN CREATININE RATIO [SQPRATIO] Order #: [id number] FUTURE Prescriptions as of 05/29/2022 - atorvastatin [...] Status:Closed by VIVEK RICO on 05/28/22 Normal [facility] KIDNEY/BLADDERon 05-26-19 US KIDNEY/BLADDER * * *Final Report* * * DATE OF EXAM: May 26 2022 2:34PM [facility] 1055 - US KIDNEY/BLADDER / PROCEDURE REASON: [...] No evidence of renal calculus or hydronephrosis. Personnel Psychologist: GREGORY Transcribe Date/Time: May 26 2022 2:43P Dictated by : BOB RODRIGUEZ MD This examination was interpreted and the report reviewed and electronically signed by: BOB RODRIGUEZ MD on May 27 2022 5:50AM EST [id number] [facility] 05-21-2022 [facility] Office Visit ([facility] ) -- NEHAL BAIG ([id number]) 1970 M Date Time Provider Department 05/21/22 5:20 PM SALOME AGUILLON [facility] During your visit today, we recorded the following information about you: Pulse Blood pressure Weight Height 89/minute 133/67 180.5 kg 1.854 m Salome Aguillon APRN.HOIST WORKER 05/21/2022 6:45 PM Addendum This note [...] 2020. This is a workers comp issue-through [facility]/Dr. Cowan. 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 Shoulder replacement surgery left 08/23/24. 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 ENDO/WT: -needs f/up endo wt managmeent Dr. 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 Man/Agustina-endo wt management team [phone] Will review at upcoming appointment. Protein noted in urine. Vitamin D is low at 30.7-recommend yylj-xof-iynjgkw vitamin D3 1000 units daily. Cholesterol is elevated, worsening when compared to prior-we will discuss increasing cholesterol medication. Kidney, liver, electrolytes look fine. Thyroid lab looks fine. PSA/prostate lab looks fine. A1c is stable at 5.4. Blood count looks fine. Written by Salome Aguillon APRN.HOIST WORKER on 05/21/2022 3:44 PM EST Last [...] Negative Ketones, Urine Negative Trace (A) Specific [place], Ur 1.005 - 1.030 >=1.030 (H) Hemoglobin/Blood,Ur [...] hyperlipidemia Obst (more content not included)... Normal [facility] 25(OH)D3 SerPl-mCncon 2022 25-hydroxyvitamin D3 [Mass/Vol] 30.7 ng/mL Low 31.0-80.0 [facility] Comment on above: Order Comment: Speci men Type: BLOOD SPECIMEN Ordering Facility: [facility] Address: [address] [place] [address] Result Comment: Clas sification of 25 [place] Vitamin D status: Deficiency/Insufficiency: < or = 30 ng/ml. Sufficiency/Optimal Levels: 31-80 ng/mL Toxicity: > 100 ng/mL. Test performed by chemiluminescent immunoassay. Performed By: #### 1 989-3 #### [facility] CLIA [id number] [address] [place] [address] OF [facility] CBC panel Auto (Bld)on 05-19 Erythrocyte distribution width (RBC) [Ratio] 12.9 % Normal 11.5-15.0 [facility] Comment on above: Order Comment: Speci men Type: URINE SPECIMEN Ordering Facility: [facility] Address: [address] [place] [address] Performed By: #### L [id number] #### [facility] CLIA [id number] [address] [place] [address] STATES OF [facility] Hematocrit (Bld) [Volume fraction] 42.7 % Normal 39.0-51.0 [facility] Comment on above: Order Comment: Speci men Type: URINE SPECIMEN Ordering Facility: [facility] Address: [address] [place] [place] [id number] Performed By: #### L [id number] #### [facility] CLIA [id number] [address] [place] [address] [place] Hemoglobin (Bld) [Mass/Vol] 14.5 g/dL Normal 13.0-17.0 [facility] Comment on above: Order Comment: Speci men Type: URINE SPECIMEN Ordering Facility: [facility] Address: [address] [place] [address] Performed By: #### L [id number] #### [facility] CLIA [id number] [address] [place] [address] STATES [facility] MCH (RBC) [Entitic mass] 29.2 pg Normal 26.0-34.0 [facility] Comment on above: Order Comment: Speci men Type: URINE SPECIMEN Ordering Facility: [facility] Address: [address] [place] [address] Performed By: #### L [id number] #### [facility] CLIA [id number] [address] [place] [address] [place] MCHC (RBC) [Mass/Vol] 34.0 g/dL Normal 30.5-36.0 [facility] Comment on above: Order Comment: Speci men Type: URINE SPECIMEN Ordering Facility: [facility] Address: [address] [place] [address] Performed By: #### L [id number] #### [facility] CLIA [id number] [address] [place] [address] [place] MCV (RBC) [Entitic vol] 85.9 fL Normal 80.0-100.0 [facility] Comment on above: Order Comment: Speci men Type: URINE SPECIMEN Ordering Facility: [facility] Address: [address] [place] [address] Performed By: #### L [id number] #### [facility] CLIA [id number] [address] [place] [address] STATES [facility] Nucleated RBC (Bld) [#/Vol] 10*3/uL Normal <0.01 [facility] Comment on above: Order Comment: Speci men Type: URINE SPECIMEN Ordering Facility: [facility] Address: [address] [place] [address] Performed By: #### L [id number] #### [facility] CLIA [id number] [address] [place] [address] [place] Platelet mean volume (Bld) [Entitic vol] 10.2 fL Normal 9.0-12.7 [facility] Comment on above: Order Comment: Speci men Type: URINE SPECIMEN Ordering Facility: [facility] Address: [address] [place] [address] Performed By: #### L [id number] #### [facility] CLIA [id number] [address] [place] [address] [place] Platelets (Bld) [#/Vol] 189 10*3/uL Normal 150-400 [facility] Comment on above: Order Comment: Speci men Type: URINE SPECIMEN Ordering Facility: [facility] Address: [address] [place] [address] Performed By: #### L [id number] #### [facility] CLIA [id number] [address] [place] [address] [place] RBC (Bld) [#/Vol] 4.97 10*6/uL Normal 4.20-6.00 [facility] Comment on above: Order Comment: Speci men Type: URINE SPECIMEN Ordering Facility: [facility] Address: [address] [place] [address] Performed By: #### L [id number] #### [facility] CLIA [id number] [address] [place] [address] [place] WBC (Bld) [#/Vol] 5.26 10*3/uL Normal 3.70-11.00 [facility] Comment on above: Order Comment: Speci men Type: URINE SPECIMEN Ordering Facility: [facility] Address: [address] [place] [address] Performed By: #### L [id number] #### [facility] CLIA [id number] [address] [place] [address] [place] Comprehensive metabolic 2000 panelon 05-19-2022 Albumin [Mass/Vol] 4.4 g/dL Normal 3.9-4.9 [facility] Comment on above: Order Comment: Speci men Type: BLOOD SPECIMENOrdering Facility: [facility] Address: [address] [address] Performed By: #### 2 4323-8, 58975-8 ####[facility] LABCLIA [id number] [place] [id number] [place] ALP [Catalytic activity/Vol] 83 U/L Normal 38-113 [facility] Comment on above: Order Comment: Speci men Type: BLOOD SPECIMENOrdering Facility: [facility] Address: [address] [address] Performed By: #### 2 4323-8, 88693-8 ####[facility] LABCLIA [id number] [place] [id number] [place] ALT [Catalytic activity/Vol] 45 U/L Normal 10-54 [facility] Comment on above: Order Comment: Speci men Type: BLOOD SPECIMENOrdering Facility: [facility] Address: [address] [place] [address] Performed By: #### 2 4323-8, 58957-2 ####[facility] LABIA [id number] [place] [address] [place] Anion gap [Moles/Vol] 10 mmol/L Normal 9-18 [facility] Comment on above: Order Comment: Speci men Type: BLOOD SPECIMENOrdering Facility: [facility] Address: [address] [address] Performed By: #### 2 4323-8, 87520-6 ####[facility] LABCLIA [id number] [place] [address] [place] AST [Catalytic activity/Vol] 31 U/L Normal 14-40 [facility] Comment on above: Order Comment: Speci men Type: BLOOD SPECIMENOrdering Facility: [facility] Address: [address] [address] Performed By: #### 2 4323-8, 84468-0 ####[facility] LABCLIA [id number] [place] [address] [place] Bilirubin [Mass/Vol] 0.6 mg/dL Normal 0.2-1.3 [facility] Comment on above: Order Comment: Speci men Type: BLOOD SPECIMENOrdering Facility: [facility] Address: [address] [place] [address] Performed By: #### 2 4323-8, 39007-9 ####[facility] LABCLIA [id number] [place] [id number] [place] Calcium [Mass/Vol] 9.5 mg/dL Normal 8.5-10.2 [facility] Comment on above: Order Comment: Speci men Type: BLOOD SPECIMENOrdering Facility: [facility] Address: [address] [place] [address] Performed By: #### 2 4323-8, 31410-4 ####[facility] [facility] LABCLIA [id number] [place] [address] [place] Chloride [Moles/Vol] 103 mmol/L Normal 97-105 [facility] Comment on above: Order Comment: Speci men Type: BLOOD SPECIMENOrdering Facility: [facility] Address: [address] [place] [address] Performed By: #### 2 4323-8, 39582-7 ####[facility] LABCLIA [id number] [place] [id number] [place] CO2 [Moles/Vol] 26 mmol/L Normal 22-30 [facility] Comment on above: Order Comment: Speci men Type: BLOOD SPECIMENOrdering Facility: [facility] Address: [address] [place] [address] Performed By: #### 2 4323-8, 94919-4 ####[facility] LABCLIA [id number] [place] [address] [place] Creatinine [Mass/Vol] 0.98 mg/dL Normal 0.73-1.22 [facility] Comment on above: Order Comment: Speci men Type: BLOOD SPECIMENOrdering Facility: [facility] Address: [address] [place] [address] Performed By: #### 2 4323-8, 48000-6 ####[facility] LABCLIA [id number] [place] [id number] [place] ESTIMATED GLOMERULAR FILTRATION RATE 95 mL/min/1.73m??? Normal >=60 [facility] Comment on above: Order Comment: Tessa men Type: BLOOD SPECIMENOrdering Facility: [facility] Address: [address] [place] [address] Result Comment: Halle mated Glomerular Filtration Rate [...] actual GFR. Performed By: #### 2 4323-8, 96579-6 ####[facility] LABCLIA [id number] [place] [id number] [place] Glucose [Mass/Vol] 203 mg/dL High 74-99 [facility] Comment on above: Order Comment: Tessa flores Type: BLOOD SPECIMENOrdering Facility: [facility] Address: [address] [place] [address] Result Comment: The [place] Diabetes Association (ADA) provides guidance for cutoff [...] Standards of Medical Care in Diabetes 2016, [place] Diabetes Association. Diabetes Care. 2016.39(Suppl 1). Performed By: #### 2 4323-8, 23205-6 ####[facility] LABCLIA [id number] [place] [address] [place] Potassium [Moles/Vol] 4.6 mmol/L Normal 3.7-5.1 [facility] Comment on above: Order Comment: Speci men Type: BLOOD SPECIMENOrdering Facility: [facility] Address: [address] [place] [address] Performed By: #### 2 432-8, 03439-7 ####[facility] LABCLIA [id number] [place] [id number] [place] Protein [Mass/Vol] 7.4 g/dL Normal 6.3-8.0 [facility] Comment on above: Order Comment: Speci men Type: BLOOD SPECIMENOrdering Facility: [facility] Address: [address] [address] Performed By: #### 2 4328, 31909-4 ####[facility] LABIA [id number] [place] [address] [place] Sodium [Moles/Vol] 139 mmol/L Normal 136-144 [facility] Comment on above: Order Comment: Speci men Type: BLOOD SPECIMENOrdering Facility: [facility] Address: [address] [place] [address] Performed By: #### 2 4323-8, 27627-5 ####[facility] LABCLIA [id number] [place] [address] [place] Urea nitrogen [Mass/Vol] 17 mg/dL Normal 9-24 [facility] Comment on above: Order Comment: Speci men Type: BLOOD SPECIMENOrdering Facility: [facility] Address: [address] [place] [address] Performed By: #### 2 4323-8, 01571-3 ####[facility] LABCLIA [id number] [place] [address] [place] HbA1c (Bld)on 05-19-2022 Average glucose Estimated from glycated hemoglobin (Bld) [Mass/Vol] 108 mg/dL Normal [facility] Comment on above: Order Comment: Speci men Type: URINE SPECIMEN Ordering Facility: [facility] Address: [address] [address] Result Comment: eAG: (Estimated average glucose) is a calculated value from HgbA1c and is sales representative electric service of the average blood glucose level in the last 2-3 month period. Performed By: #### L [id number] #### [facility] LAB CLIA [id number] [address] [place] [address] STATES OF [facility] HbA1c (Bld) [Mass fraction] 5.4 % Normal 4.3-5.6 [facility] Comment on above: Order Comment: Selmai men Type: URINE SPECIMEN Ordering Facility: [facility] Address: [address] [address] Result Comment: Amer ican Diabetes Association guidelines indicate that patients with HgbA1c in the range 5.7-6.4% are at increased risk for development of diabetes, and intervention by lifestyle modification may be beneficial. HgbA1c greater or equal to 6.5% is considered diagnostic of diabetes. Performed By: #### L [id number] #### [facility] LAB CLIA [id number] [address] [place] [address] OF [facility] Lipid 1996 panelon 3 Cholesterol [Mass/Vol] 219 mg/dL High <200 [facility] Comment on above: Order Comment: Speci men Type: BLOOD SPECIMENOrdering Facility: [facility] Address: [address] [address] Result Comment: <200 mg/dL, Desirable 200-239 mg/dL, Borderline high >239 mg/dL, High Performed By: #### 2 4323-8, 16327-9 ####[facility] LABCLIA [id number] [address] OF [facility] Cholesterol in HDL [Mass/Vol] 38 mg/dL Low >39 [facility] Comment on above: Order Comment: Speci men Type: BLOOD SPECIMENOrdering Facility: [facility] Address: [address] [place] [address] Result Comment: 40-5 9 mg/dL, Acceptable >59 mg/dL, High: Negative risk factor for coronary heart disease <40 mg/dL, Low: Positive risk factor for coronary heart disease Performed By: #### 2 4323-8, 31360-8 ####[facility] LABCLIA [id number] [place] [id number] [place] Cholesterol in LDL [Mass/Vol] 149 mg/dL High <100 [facility] Comment on above: Order Comment: Speci men Type: BLOOD SPECIMENOrdering Facility: [facility] Address: [address] [place] [address] Result Comment: <100 mg/dL, Optimal 100-129 mg/dL, Near optimal/above optimal 130-159 mg/dL, Borderline high 160-189 mg/dL, High >189 mg/dL, Very high Secondary prevention optimal LDL Cholesterol levels are recommended to be < 70 mg/dL Performed By: #### 2 4323-8, ####[facility] LABCLIA [id number] [place] [address] [place] Cholesterol in LDL/Cholesterol in HDL [Mass ratio] 3.92 {ratio} High <2.54 [facility] Comment on above: Order Comment: Tessa flores Type: BLOOD SPECIMENOrdering Facility: [facility] Address: [address] [place] [address] Result Comment: Refe rence: 1. National Cholesterol Education Program ATP III Guideline At-A-Glance Quick Desk Reference: National Heart, Lung, and Blood [place]. National Institutes of Health. 2001: NIH Publication No. 01-3305. 2. An International Atherosclerosis Society position paper: global recommendations for the management of dyslipidemia: executive summary, Atherosclerosis. 2014: 232(2):410-413. Performed By: #### 2 4323-8, 33249-8 ####[facility] LABCLIA [id number] [place] [address] [place] [facility] Cholesterol in VLDL [Mass/Vol] 32 mg/dL High <30 [facility] Comment on above: Order Comment: Speci men Type: BLOOD SPECIMENOrdering Facility: [facility] Address: [address] [address] Performed By: #### 2 4323-8, 17987-8 ####[facility] LABCLIA [id number] [place] [address] [place] Cholesterol non HDL [Mass/Vol] 181 mg/dL High <130 [facility] Comment on above: Order Comment: Speci men Type: BLOOD SPECIMENOrdering Facility: [facility] Address: [address] [address] Result Comment: <130 mg/dL, Optimal 130-159 mg/dL, Near optimal/above optimal 160-189 mg/dL, Borderline high 190-219 mg/dL, High >219 mg/dL, Very high Secondary prevention optimal non HDL Cholesterol levels are recommended to be <100 mg/dL Performed By: #### 2 4328, 36163-6 ####[facility] LABIA [id number] [address] STATES [facility] Cholesterol.total/Ch olesterol in HDL [Mass ratio] 5.76 {ratio} High <5.10 [facility] Comment on above: Order Comment: Speci men Type: BLOOD SPECIMENOrdering Facility: [facility] Address: [address] [address] Performed By: #### 2 4323-8, ####[facility] LABCLIA [id number] [place] [id number] [place] FASTING TIME 10 hrs Normal [facility] Comment on above: Order Comment: Speci men Type: BLOOD SPECIMENOrdering Facility: [facility] Address: [address] [address] Performed By: #### 2 4323-8, 49374-2 ####[facility] LABCLIA [id number] [address] [place] Triglyceride [Mass/Vol] 161 mg/dL High <150 [facility] Comment on above: Order Comment: Speci men Type: BLOOD SPECIMENOrdering Facility: [facility] Address: [address] [address] Result Comment: <150 mg/dL, Normal 150-199 mg/dL, Borderline high 200-499 mg/dL, High >499 mg/dL, Very high Performed By: #### 2 4323-8, 75040-2 ####[facility] LABCLIA [id number] [place] [address] [place] PSA/PROSTSPECAG SCRNon 05-19 Prostate specific Ag [Mass/Vol] 0.56 ng/mL Normal <2.60 [facility] Comment on above: Order Comment: Speci men Type: BLOOD SPECIMENOrdering Facility: [facility] Address: [address] [address] Result Comment: Tota l PSA test methodology used is the Electrochemiluminescence Immunoassay by [employer]. Total PSA values by differing methodologies cannot be interchanged. Performed By: #### P SAS1 ####[facility] LABCLIA [id number] [place] [address] [place] TSH SerPl-aCncon 05-19-2022 TSH Qn 1.020 m[IU]/L Normal 0.270-4.200 [facility] Comment on above: Order Comment: Speci men Type: BLOOD SPECIMENOrdering Facility: [facility] Address: [address] [address] Performed By: #### 3 016-3 ####[facility] LABCLIA [id number] [place] [address] [place] URINALYSIS, REFLEX MICROSCOP ICon 05-19-2022 Bilirubin Ql (U) Negative Normal Negative [facility] Comment on above: Order Comment: Speci men Type: URINE SPECIMEN Ordering Facility: [facility] Address: [address] [address] Performed By: #### L [id number] #### [facility] CLIA [id number] [address] [place] [address] [place] Clarity (Unsp spec) Clear Normal Clear [facility] Comment on above: Order Comment: Speci men Type: URINE SPECIMEN Ordering Facility: [facility] Address: [address] [place] [address] Performed By: #### L [id number] #### [facility] LAB CLIA [id number] [address] [place] [address] STATES OF [facility] Color (U) Yellow Normal Yellow [facility] Comment on above: Order Comment: Speci men Type: URINE SPECIMEN [facility]ing [facility]: [facility] Address: [address] [place] [address] Performed By: #### L [id number] #### [facility] CLIA [id number] [address] [place] [address] [place] Epithelial cells LM.HPF (Urine sed) [#/Area] Few Normal [facility] Comment on above: Order Comment: Speci men Type: URINE SPECIMEN [facility]ing [facility]: [facility] Address: [address] [place] [address] Performed By: #### L [id number] #### [facility] LAB CLIA [id number] [address] [place] [address] [place] Glucose Test strip (U) [Mass/Vol] Negative Normal Negative [facility] Comment on above: Order Comment: Speci men Type: URINE SPECIMEN [facility]ing [facility]: [facility] Address: [address] [place] [address] Performed By: #### L [id number] #### [facility] CLIA [id number] [address] [place] [address] [place] Hemoglobin Ql (U) Negative Normal Negative [facility] Comment on above: Order Comment: Speci men Type: URINE SPECIMEN Ordering [facility]: [facility] Address: [address] [place] [address] Performed By: #### L [id number] #### [facility] LAB CLIA [id number] [address] [place] [address] [place] Ketones Ql (U) Trace Abnormal Negative [facility] Comment on above: Order Comment: Speci men Type: URINE SPECIMEN [facility]ing [facility]: [facility] Address: [address] [place] [address] Performed By: #### L [id number] #### [facility] CLIA [id number] [address] [place] [address] [place] Leukocyte esterase Test strip Ql (U) Negative Normal Negative [facility] Comment on above: Order Comment: Speci men Type: URINE SPECIMEN [facility]ing [facility]: [facility] Address: [address] [place] [address] Performed By: #### L [id number] #### [facility] CLIA [id number] [address] [place] [address] [place] Nitrite Ql (U) Negative Normal Negative [facility] Comment on above: Order Comment: Speci men Type: URINE SPECIMEN [facility]ing [facility] Address: [address] [place] [address] Performed By: #### L [id number] #### [facility] CLIA [id number] [address] [place] [address] [place] pH (U) 5.5 [pH] Normal 5.0-8.0 [facility] Comment on above: Order Comment: Speci men Type: URINE SPECIMEN [facility]ing [facility]: [facility] Address: [address] [place] [address] Performed By: #### L [id number] #### [facility] CLIA [id number] [address] [place] [address] [place] Protein (U) [Mass/Vol] 1+ Abnormal Negative [facility] Comment on above: Order Comment: Speci men Type: URINE SPECIMEN [facility]ing [facility]: [facility] Address: [address] [place] [address] Performed By: #### L [id number] #### [facility] CLIA [id number] [address] [place] [address] STATES [facility] RBC LM.HPF (Urine sed) [#/Area] 0-3 /HPF Normal 0-3 /HPF [facility] Comment on above: Order Comment: Speci men Type: URINE SPECIMEN Ordering [facility]: [facility] Address: [address] [place] [address] Performed By: #### L [id number] #### [facility] CLIA [id number] [address] [place] [address] OF [facility] Specific gravity (U) [Rel density] >=1.030 High 1.005-1.030 [facility] Comment on above: Order Comment: Speci men Type: URINE SPECIMEN Ordering [facility]: [facility] Address: [address] [place] [address] Performed By: #### L [id number] #### [facility] CLIA [id number] [address] [place] [address] Urobilinogen Ql (U) 0.2 EU/dL Normal 0.2-1.0 EU/dL [facility] Comment on above: Order Comment: Speci men Type: URINE SPECIMEN [facility]ing [facility]: [facility] Address: [address] [place] [address] Performed By: #### L [id number] #### [facility] CLIA [id number] [address] [place] [address] WBC LM.HPF (Urine sed) [#/Area] 0-5 /HPF Normal 0-5 /HPF [facility] Comment on above: Order Comment: Speci men Type: URINE SPECIMEN [facility]ing [facility]: [facility] Address: [address] [place] [address] Performed By: #### L [id number] #### [facility] CLIA [id number] [address] [place] [address] [place] MRI CSPINE WO CONon [...] HERRERA Date: 2022-04-23 06:50 Normal [facility] XR FOREIGN BODY EYEon 2022 XR FOREIGN BODY EYE EXAMINATION: XR FORE IGN BODY EYE HISTORY: Foreign body in eye COMPARISON: No relevant comparison available. FINDINGS: ORBITS: Negative for a metallic foreign body. OTHER: Negative. IMPRESSION: 1. No metallic foreign body within the orbits. 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 Man/PsyD-endo wt management team [phone] Has been off metformin 6 weeks + [...] and statin. Ultrasound carotids [facility] at [facility]- 11/25/2019- 0 to 29% stenosis bilaterally. Repeat [...] 2020. This is a workers comp issue-through [facility]/Dr. Cowan. 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 [...] looks fine. Vitamin D is low-please begin abgy-rjt-uzokaiq vitamin D3 2000 units daily. Urine asymptomatic. Component Latest Ref Rng AND Units 02/10/2022 Color Yellow Yellow Clarity Clear Clear Glucose, Urine Negative Negative Bilirubin, Urine Negative Negative Ketones, Urine Negative Negative Specific [place], Ur 1.005 - 1.030 1.037 (H) Hemoglobin/Blood,Ur [...] other (Epilepsy) (more content not included)... Normal [facility] 25(OH)D3 [facility] 2021 25-hydroxyvitamin D3 [Mass/Vol] 28.2 ng/mL Low 31.0-80.0 [facility] Comment on above: Order Comment: Speci men Type: BLOOD SPECIMENOrdering Facility: [facility] Address: [address] [place] [address] [place] [address] Result Comment: Clas sification of 25 [place] Vitamin D status: Deficiency/Insufficiency: < or = 30 ng/ml. Sufficiency/Optimal Levels: 31-80 ng/mL Toxicity: > 100 ng/mL. Test performed by chemiluminescent immunoassay. Performed By: #### 1 989-3 ####[facility] LABIA [id number] [place] [address] [place] CBC panel Auto (Bld)on 02-10 Erythrocyte distribution width (RBC) [Ratio] 13.2 % Normal 11.5-15.0 [facility] Comment on above: Order Comment: Speci men Type: BLOOD SPECIMENOrdering Facility: [facility] Address: [address] [place] [address] Performed By: #### 5 8410-2 ####[facility] LABIA [id number] [address] [place] Hematocrit (Bld) [Volume fraction] 41.9 % Normal 39.0-51.0 [facility] Comment on above: Order Comment: Speci men Type: BLOOD SPECIMENOrdering Facility: [facility] Address: [address] [place] [address] Performed By: #### 5 8410-2 ####[facility] [id number] [address] [place] Hemoglobin (Bld) [Mass/Vol] 13.9 g/dL Normal 13.0-17.0 [facility] Comment on above: Order Comment: Speci men Type: BLOOD SPECIMENOrdering Facility: [facility] Address: [address] [place], [place] [address] Performed By: #### 5 8410-2 ####[facility] LABIA [id number] [address] [place] MCH (RBC) [Entitic mass] 29.0 pg Normal 26.0-34.0 [facility] Comment on above: Order Comment: Speci men Type: BLOOD SPECIMENOrdering Facility: [facility] Address: [address] [place] [address] Performed By: #### 5 8410-2 ####[facility] LABIA [id number] STATES [facility] MCHC (RBC) [Mass/Vol] 33.2 g/dL Normal 30.5-36.0 [facility] Comment on above: Order Comment: Speci men Type: BLOOD SPECIMENOrdering Facility: [facility] Address: [address] [place] [address] Performed By: #### 5 8410-2 ####[facility] LABIA [id number] [address] [place] MCV (RBC) [Entitic vol] 87.5 fL Normal 80.0-100.0 [facility] Comment on above: Order Comment: Speci men Type: BLOOD SPECIMENOrdering Facility: [facility] Address: [address] [place] [address] Performed By: #### 5 8410-2 ####[facility] LABIA [id number] [address] [place] Nucleated RBC (Bld) [#/Vol] 10*3/uL Normal <0.01 [facility] Comment on above: Order Comment: Speci men Type: BLOOD SPECIMENOrdering Facility: [facility] Address: [address] [place], [place] [address] Performed By: #### 5 8410-2 ####[facility] LABIA [id number] [place] [address] [place] Platelet mean volume (Bld) [Entitic vol] 10.6 fL Normal 9.0-12.7 [facility] Comment on above: Order Comment: Speci men Type: BLOOD SPECIMENOrdering Facility: [facility] Address: [address] [place], [place] [address] Performed By: #### 5 8410-2 ####[facility] LABCLIA [id number] [place] [address] [place] Platelets (Bld) [#/Vol] 198 10*3/uL Normal 150-400 [facility] Comment on above: Order Comment: Speci men Type: BLOOD SPECIMENOrdering Facility: [facility] Address: [address] [place], [place] [address] Performed By: #### 5 8410-2 ####[facility] LABCLIA [id number] [place] [address] [place] RBC (Bld) [#/Vol] 4.79 10*6/uL Normal 4.20-6.00 [facility] Comment on above: Order Comment: Speci men Type: BLOOD SPECIMENOrdering Facility: [facility] Address: [address] [place], [place] [address] Performed By: #### 5 8410-2 ####[facility] LABCLIA [id number] [address] [place] WBC (Bld) [#/Vol] 6.46 10*3/uL Normal 3.70-11.00 [facility] Comment on above: Order Comment: Speci men Type: BLOOD SPECIMENOrdering Facility: [facility] Address: [address] [place], [place] [address] Performed By: #### 5 8410-2 ####[facility] LABCLIA [id number] [address] Comprehensive metabolic 2000 panelon 02-10-2022 Albumin [Mass/Vol] 4.5 g/dL Normal 3.9-4.9 [facility] Comment on above: Order Comment: Speci men Type: BLOOD SPECIMENOrdering Facility: [facility] Address: [address] [place], [place] [address] Performed By: #### 3 016-3, 78192-3 ####[facility] LABCLIA [id number] [address] STATES OF [place]#### 64451-6 ####[facility] LABCLIA [id number] [place] [id number] [place] [facility] LABORATORYCLIA [id number] [place] [address] [place] ALP [Catalytic activity/Vol] 85 U/L Normal 38-113 [facility]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 (08/23/21 6:20 AM) Normal [facility] BB Subsection CHEMISTRYOrdered By: Randi SALGADO User on 08-23-2021 Glucose [Mass/Vol] 113 mg/dL High 55 - 99 mg/dL [facility] POC Subsection Comment on above: Result Comment: Jes lisandra Meter POC Device SN [id number] Invalid Interpretation Code [facility] POC Subsection POC User ID [id number] Invalid Interpretation Code [facility] POC Subsection POC Username KIMBERLEY ACKERMAN Invalid Interpretation Code [facility] POC Subsection URINALYSISOrdered By: Savannah Schneider on [...] AM) Normal Negative [facility] UA Auto SS [place].plasma/Lithi um.RBC (Bld) [Mass ratio] 0-3 /HPF Normal [...] FT UA Auto SS Urobilinogen Qn (U) 1.1884886 {Sean'U}/dL Normal 0.0 - 1.0 EU/dL [facility] UA Auto SS WBC Auto Ql (U) Negative (08/23/21 7:36 AM) Normal Negative [facility] UA Auto SS WBC LM.HPF (Urine sed) [#/Area] 0-5 /HPF Normal 0-5/HPF [facility] UA Auto SS CNOVon 08-15-2021 CNOV Office Visit (ELENA ) -- NEHAL BAIG ([id number]) 1970 M Date Time Provider Department 08/15/21 [...] weight gain: 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 Weight issues one year after divorce in [...] weight loss: Self-directed dieting Have you used xqah-wkt-jbddtbs or prescribed weight loss medications? No Have you had a surgical procedure for weight loss? No No flowsheet data found. No flowsheet data found. ALLERGIES: ALLERGIES No Known Allergies CURRENT MEDICATIONS: atorvastatin (LIPITOR) 20 mg tablet Take 1 tablet by mouth daily at bedtime. l (more content not included)... [facility] CNOVon 08-10-2021 CNOV Office Visit ([facility] ) -- ESSENCENEHAL GAN ([id number]) 1970 M Date Time Provider Department 08/10/21 9:40 AM SALOME AGUILLON [facility] During your visit today, we [...] edema. 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 [...] 2020. This is a workers comp issue-through [facility] nuria/Dr. Cowan. 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 [...] Negative Negative Ketones, Urine Negative Negative Specific [place], Ur 1.005 - 1.030 1.025 Hemoglobin/Blood,Ur Negative [...] (H) Case Report Surgical Pathology Report Case: [id number] . . . FINAL DIAGNOSIS This result [...] Appearance: No (more content not included)... [facility] BLOOD BANKOrdered By: Kat Salcedo on 08-08-2021 ABO/Rh Retype Interp Negative Invalid Interpretation Code [facility] BB Subsection CHEMISTRYOrdered By: SYSTEM SYSTEM on 08-08-2021 Anion gap [Moles/Vol] 11 mmol/L Normal 6 - 16 mEq/L [facility] Remisol Chloride [Moles/Vol] 104 mmol/L Normal 101 - 1 11 mmol/L [facility] Remisol CO2 [Moles/Vol] 25 mmol/L Normal 21 - 31 mmol/L [facility] Remisol Creatinine [Mass/Vol] 0.8 mg/dL Normal 0.5 - 1.3 mg/dL [facility] Remisol GFR/1.73 sq M.predicted among blacks MDRD (S/P/Bld) [Vol rate/Area] mL/min/1.73 m2 Normal >=59mL/min/ 1.73 m2 [facility] Chem S GFR/1.73 sq M.predicted among non-blacks MDRD (S/P/Bld) [Vol rate/Area] mL/min/1.73 m2 Normal >=59mL/min/ 1.73 m2 [facility] Chem S Glucose [Mass/Vol] 103 mg/dL Normal 55 - 199 mg/dL [facility] Remisol Potassium [Moles/Vol] 4.0 mmol/L Normal 3.5 [...] AM) Normal Negative [facility] UA Auto SS [place].plasma/Lithi um.RBC (Bld) [Mass ratio] 0-3 /HPF Normal [...] FT UA Auto SS Urobilinogen Qn (U) 0.0290227 {Sean'U}/dL Normal 0.0 - 1.0 EU/dL [facility] UA Auto SS WBC Auto Ql (U) Negative (08/08/21 10:04 AM) Normal Negative [facility] UA Auto SS WBC LM.HPF (Urine sed) [#/Area] 0-5 /HPF Normal 0-5/HPF [facility] UA Auto SS ANES POSTPROC EVALon 022 ANES POSTPROC EVAL HNO ID: [id number] Author: Lucy Flanagan MD Service: Anesthesiology Author Type: Anesthesiologist Type: Anesthesia Postprocedure Evaluation Filed: 07/31/2021 12:56 PM Note Text: POST ANESTHESIA EVALUATION NOTE : 1970 Procedure Summary Date: 07/31/21 Room / Location: [facility] Endoscopy Anesthesia Start: 1053 Anesthesia Stop: [...] July 31, 2021 TIME: 12:55 PM CSN: [id number] Normal [facility] ANES PRE-OPon 07-31-2021 ANES PRE-OP HNO ID: [id number] Author: Lucy Flanagan MD Service: Anesthesiology Author Type: Anesthesiologist Type: Anesthesia Preprocedure Evaluation Filed: 07/31/2021 9:50 AM Note Text: ANESTHESIOLOGY DAY OF SURGERY NOTE : 1970 Procedure Information Date/Time: 07/31/21 1030 Scheduled providers: Jayy Patel MD; Cori Ashley APRN.DIALYSIS REGISTERED NURSE; Lucy Flanagan MD Procedure: COLONOSCOPY DIAGNOSTIC Location: [facility] Endoscopy Estimated body mass index is [...] obtained within 48 hours of Surgery/Procedure. SIGNATURE: Luyc Flanagan MD PATIENT NAME: Nehal Baig DATE: July 31, 2021 TIME: 9:49 AM CSN: [id number] Normal [facility] COLONOSCOPY DIAGNOSTICon [facility] HISTORY PHYSICALon HISTORY PHYSICAL HNO ID: [id number] Author: Jayy Patel MD Service: General Surgery [...] DATE: July 31, 2021 TIME: 10:58 AM [facility] SURGICAL PATHOLOGYon 022 CASE REPORT Normal [facility] Comment on above: Order Comment: Tessa flores Type: TISSUE SPECIMEN Ordering Facility: [facility] Address: [address] [place] [id number] Result Comment: Surg [facility] Pathology Report Case: [id number] Authorizing Provider: Jayy Patel MD Collected: 07/31/2021 11:31 AM Ordering Location: [facility] Endoscopy Received: 07/31/2021 02:15 PM Pathologist: Luis F Quiroz MD Specimen: SIGMOID COLON POLYP Performed By: #### S #### [facility] CLIA [id number] [address] [place] [address] FINAL DIAGNOSIS Normal [facility] Comment on above: Order Comment: Speci men Type: TISSUE SPECIMEN Ordering Facility: [facility] Address: [address] [place] [address] Result Comment: Sigm oid colon polyp, biopsy: - Tubular adenoma. JEL 08/01/2021 Performed By: #### S #### [facility] CLIA [id number] [address] [place] [address] OF [facility] FINAL PERFORMING LAB Normal [facility] Comment on above: Order Comment: Speci men Type: TISSUE SPECIMEN Ordering Facility: [facility] Address: [address] [place] [address] Result Comment: Diag nostic interpretation performed at [facility], [address] [place] [address] CLIA# [id number] Teradata Architect: Nehal Cid M.D. Performed By: #### S #### [facility] CLIA [id number] [address] [place] [address] GROSS DESCRIPTION Normal [facility] Comment on above: Order Comment: Speci men Type: TISSUE SPECIMEN Ordering Facility: [facility] Address: [address] [place] [address] Result Comment: A. S IGMOID COLON POLYP. Received in formalin are multiple pieces of kaufman, soft tissue aggregating to 1.8 x 0.3 x 0.2 cm. Totally submitted in one cassette. SS July 31, 2021 7:11 PM Gross examination performed at [facility], [address] [place] [address] Performed By: #### S #### [facility] CLIA [id number] [address] [place] [address] [place] CBC panel Auto (Bld)on 07-29 Erythrocyte distribution width (RBC) [Ratio] 12.5 % Normal 11.5-15.0 [facility] Comment on above: Order Comment: Speci men Type: URINE SPECIMEN Ordering Facility: [facility] Address: [address] [place] [address] Performed By: #### L [id number] #### [facility] CLIA [id number] [address] [place] [address] [place] Hematocrit (Bld) [Volume fraction] 39.4 % Normal 39.0-51.0 [facility] Comment on above: Order Comment: Speci men Type: URINE SPECIMEN Ordering Facility: [facility] Address: [address] [place] [address] Performed By: #### L [id number] #### [facility] CLIA [id number] [address] [place] [address] [place] Hemoglobin (Bld) [Mass/Vol] 13.6 g/dL Normal 13.0-17.0 [facility] Comment on above: Order Comment: Speci men Type: URINE SPECIMEN Ordering Facility: [facility] Address: [address] [place] [address] Performed By: #### L [id number] #### [facility] CLIA [id number] [address] [place] [address] [place] MCH (RBC) [Entitic mass] 29.3 pg Normal 26.0-34.0 [facility] Comment on above: Order Comment: Speci men Type: URINE SPECIMEN Ordering Facility: [facility] Address: [address] [place] [address] Performed By: #### L [id number] #### [facility] CLIA [id number] [address] [place] [address] [place] MCHC (RBC) [Mass/Vol] 34.5 g/dL Normal 30.5-36.0 [facility] Comment on above: Order Comment: Speci men Type: URINE SPECIMEN Ordering Facility: [facility] Address: [address] [place] [address] Performed By: #### L [id number] #### [facility] CLIA [id number] [address] [place] [address] [place] MCV (RBC) [Entitic vol] 84.9 fL Normal 80.0-100.0 [facility] Comment on above: Order Comment: Speci men Type: URINE SPECIMEN Ordering Facility: [facility] Address: [address] [place], [place] [address] Performed By: #### L [id number] #### [facility] CLIA [id number] [address] [place] [address] [place] Nucleated RBC (Bld) [#/Vol] 10*3/uL Normal <0.01 [facility] Comment on above: Order Comment: Speci men Type: URINE SPECIMEN Ordering Facility: [facility] Address: [address] [place], [place] [address] Performed By: #### L [id number] #### [facility] CLIA [id number] [address] [place] [address] [place] Platelet mean volume (Bld) [Entitic vol] 9.9 fL Normal 9.0-12.7 [facility] Comment on above: Order Comment: Speci men Type: URINE SPECIMEN Ordering Facility: [facility] Address: [address] [place], [place] [address] Performed By: #### L [id number] #### [facility] CLIA [id number] [address] [place] [address] [place] Platelets (Bld) [#/Vol] 187 10*3/uL Normal 150-400 [facility] Comment on above: Order Comment: Speci men Type: URINE SPECIMEN Ordering Facility: [facility] Address: [address] [place], [place] [address] Performed By: #### L [id number] #### [facility] CLIA [id number] [address] [place] [address] [place] RBC (Bld) [#/Vol] 4.64 10*6/uL Normal 4.20-6.00 [facility] Comment on above: Order Comment: Speci men Type: URINE SPECIMEN Ordering Facility: [facility] Address: [address] [place], [place] [address] Performed By: #### L [id number] #### [facility] CLIA [id number] [address] [place] [address] [place] WBC (Bld) [#/Vol] 5.29 10*3/uL Normal 3.70-11.00 [facility] Comment on above: Order Comment: Speci men Type: URINE SPECIMEN Ordering Facility: [facility] Address: [address] [place] [address] Performed By: #### L [id number] #### [facility] CLIA [id number] [address] [place], [place] [id number] [facility] Comprehensive metabolic 2000 panelon 07-29-2021 Albumin [Mass/Vol] 4.6 g/dL Normal 3.9-4.9 [facility] Comment on above: Order Comment: Speci men Type: BLOOD SPECIMENOrdering Facility: [facility] Address: [address] [place] [address] Performed By: #### L KIERRAB, 44800-8 ####[facility] LABCLIA [id number] [place] [address] [place] ALP [Catalytic activity/Vol] 80 U/L Normal 38-113 [facility] Comment on above: Order Comment: Speci men Type: BLOOD SPECIMENOrdering Facility: [facility] Address: [address] [place] [address] Performed By: #### L KIERRAB, 78433-4 ####[facility] LABCLIA [id number] [place] [id number] [place] ALT [Catalytic activity/Vol] 58 U/L High 10-54 [facility] Comment on above: Order Comment: Speci men Type: BLOOD SPECIMENOrdering Facility: [facility] Address: [address] [place] [address] Performed By: #### L IPB, 44101-3 ####[facility] LABCLIA [id number] [place] [id number] [place] Anion gap [Moles/Vol] 7 mmol/L Low 9-18 [facility] Comment on above: Order Comment: Speci men Type: BLOOD SPECIMENOrdering Facility: [facility] Address: [address] [place], [place] [address] Performed By: #### L IPB, 89884-9 ####[facility] LABCLIA [id number] [place] [address] [place] AST [Catalytic activity/Vol] 39 U/L Normal 14-40 [facility] Comment on above: Order Comment: Speci men Type: BLOOD SPECIMENOrdering Facility: [facility] Address: [address] [place], [place] [address] Performed By: #### L IPB, 62087-6 ####[facility] LABCLIA [id number] [place] [address] [place] Bilirubin [Mass/Vol] 0.4 mg/dL Normal 0.2-1.3 [facility] Comment on above: Order Comment: Speci men Type: BLOOD SPECIMENOrdering Facility: [facility] Address: [address] [place], [place] [address] Performed By: #### L IPB, 95021-8 ####[facility] LABCLIA [id number] [place] [address] [place] Calcium [Mass/Vol] 9.8 mg/dL Normal 8.5-10.2 [facility] Comment on above: Order Comment: Speci men Type: BLOOD SPECIMENOrdering Facility: [facility] Address: [address] [place], [place] [address] Performed By: #### L IPB, 84170-3 ####[facility] LABCLIA [id number] [place] [id number] [place] Chloride [Moles/Vol] 104 mmol/L Normal 97-105 [facility] Comment on above: Order Comment: Speci men Type: BLOOD SPECIMENOrdering Facility: [facility] Address: [address] [place], [place] [address] Performed By: #### L IPB, 27144-5 ####[facility] LABCLIA [id number] [place] [address] [place] CO2 [Moles/Vol] 28 mmol/L Normal 22-30 [facility] Comment on above: Order Comment: Speci men Type: BLOOD SPECIMENOrdering Facility: [facility] Address: [address] [place] [address] Performed By: #### L IPB, 93966-9 ####[facility] LABCLIA [id number] [place] [address] [place] Creatinine [Mass/Vol] 0.98 mg/dL Normal 0.73-1.22 [facility] Comment on above: Order Comment: Speci men Type: BLOOD SPECIMENOrdering Facility: [facility] Address: [address] [place] [address] Performed By: #### L KIERRAB, 32079-1 ####[facility] LABIA [id number] [address] [place] ESTIMATED GLOMERULAR FILTRATION RATE 95 mL/min/1.73m??? Normal >=60 [facility] Comment on above: Order Comment: Speci men Type: BLOOD SPECIMENOrdering Facility: [facility] Address: [address] [place] [address] Result Comment: Halle mated Glomerular Filtration Rate [...] actual GFR. Performed By: #### L IPB, 19974-6 ####[facility] LABCLIA [id number] [place] [address] [place] Glucose [Mass/Vol] 120 mg/dL High 74-99 [facility] Comment on above: Order Comment: Speci men Type: BLOOD SPECIMENOrdering Facility: [facility] Address: [address] [place] [address] Result Comment: The [place] [employer] (ADA) provides guidance for cutoff [...] Standards of Medical Care in Diabetes 2016, [place] [employer]. Diabetes Care. 2016.39(Suppl 1). Performed By: #### L FILIPE, 26753-1 ####[facility] LABCLIA [id number] [place] [address] [place] Potassium [Moles/Vol] 4.7 mmol/L Normal 3.7-5.1 [facility] Comment on above: Order Comment: Speci men Type: BLOOD SPECIMENOrdering Facility: [facility] Address: [address] Performed By: #### L KIERRAB, 13732-9 ####[facility] [facility] LABCLIA [id number] [place] [id number] [place] Protein [Mass/Vol] 7.6 g/dL Normal 6.3-8.0 [facility] Comment on above: Order Comment: Speci men Type: BLOOD SPECIMENOrdering Facility: [facility] Address: [address] Performed By: #### L KIERRAB, 73492-6 ####[facility] LABCLIA [id number] [place] [id number] [place] Sodium [Moles/Vol] 139 mmol/L Normal 136-144 [facility] Comment on above: Order Comment: Speci men Type: BLOOD SPECIMENOrdering Facility: [facility] Address: [address] [place] [address] Performed By: #### L IPB, 89104-5 ####[facility] LABCLIA [id number] [place] [id number] [place] [facility] Urea nitrogen [Mass/Vol] 18 mg/dL Normal 9-24 [facility] Comment on above: Order Comment: Speci men Type: BLOOD SPECIMENOrdering Facility: [facility] Address: [address] [place] [address] Performed By: #### L IPB, 77894-5 ####[facility] LABCLIA [id number] [place] [id number] [facility] HGB A1Con 07-29-2021 Average glucose Estimated from glycated hemoglobin (Bld) [Mass/Vol] 117 mg/dL Normal [facility] Comment on above: Order Comment: Speci men Type: BLOOD SPECIMENOrdering Facility: [facility] Address: [address] [place] [address] Result Comment: eAG: (Estimated average glucose) is a calculated value from HgbA1c and is sales representative electric service of the average blood glucose level in the last 2-3 month period. Performed By: #### H BA1C ####[facility] LABIA [id number] [place] [id number] [place] HbA1c (Bld) [Mass fraction] 5.7 % High 4.3-5.6 [facility] Comment on above: Order Comment: Speci men Type: BLOOD SPECIMENOrdering Facility: [facility] Address: [address] [place] [address] Result Comment: Amer ican Diabetes Association guidelines indicate that patients with HgbA1c in the range 5.7-6.4% are at increased risk for development of diabetes, and intervention by lifestyle modification may be beneficial. HgbA1c greater or equal to 6.5% is considered diagnostic of diabetes. Performed By: #### H BA1C ####[facility] LABCLIA [id number] [place] [id number] [facility] [place] LIPID PANEL BASICon 07-30-19 22 Cholesterol [Mass/Vol] 240 mg/dL High <200 [facility] Comment on above: Order Comment: Speci men Type: BLOOD SPECIMENOrdering Facility: [facility] Address: [address] [place] [address] Result Comment: <200 mg/dL, Desirable 200-239 mg/dL, Borderline high >239 mg/dL, High Performed By: #### L KIERRAB, 99352-6 ####[facility] LABCLIA [id number] [place] [id number] [place] Cholesterol in HDL [Mass/Vol] 37 mg/dL Low >39 [facility] Comment on above: Order Comment: Speci men Type: BLOOD SPECIMENOrdering Facility: [facility] Address: [address] [place] [address] Result Comment: 40-5 9 mg/dL, Acceptable >59 mg/dL, High: Negative risk factor for coronary heart disease <40 mg/dL, Low: Positive risk factor for coronary heart disease Performed By: #### L KIERRAB, 61039-7 ####[facility] LABCLIA [id number] [address] [place] Cholesterol in LDL [Mass/Vol] 175 mg/dL High <100 [facility] Comment on above: Order Comment: Speci men Type: BLOOD SPECIMENOrdering Facility: [facility] Address: [address] [place] [address] Result Comment: <100 mg/dL, Optimal 100-129 mg/dL, Near optimal/above optimal 130-159 mg/dL, Borderline high 160-189 mg/dL, High >189 mg/dL, Very high Secondary prevention optimal LDL Cholesterol levels are recommended to be < 70 mg/dL Performed By: #### L KIERRAB, 03603-0 ####[facility] LABCLIA [id number] [place] [address] [place] Cholesterol in LDL/Cholesterol in HDL [Mass ratio] 4.73 {ratio} High <2.54 [facility] Comment on above: Order Comment: Speci men Type: BLOOD SPECIMENOrdering Facility: [facility] Address: [address] [place] [address] Result Comment: Doris tucker: 1. National Cholesterol Education Program ATP III Guideline At-A-Glance Quick Desk Reference: National Heart, Lung, and Blood [place]. National Institutes of Health. 2001: NIH Publication No. 01-3305. 2. An International Atherosclerosis Society position paper: global recommendations for the management of dyslipidemia: executive summary, Atherosclerosis. 2014: 232(2):410-413. Performed By: #### L IPB, 69402-7 ####[facility] LABCLIA [id number] [place] [id number] [place] [facility] Cholesterol in VLDL [Mass/Vol] 28 mg/dL Normal <30 [facility] Comment on above: Order Comment: [place]ores Type: BLOOD SPECIMENOrdering Facility: [facility] Address: [address] [place] [address] Performed By: #### L KIERRAB, 89532-3 ####[facility] LABCLIA [id number] [address] [place] Cholesterol non HDL [Mass/Vol] 203 mg/dL High <130 [facility] Comment on above: Order Comment: Selmad[place] flores Type: BLOOD SPECIMENOrdering Facility: [facility] Address: [address] [place] [address] Result Comment: <130 mg/dL, Optimal 130-159 mg/dL, Near optimal/above optimal 160-189 mg/dL, Borderline high 190-219 mg/dL, High >219 mg/dL, Very high Secondary prevention optimal non HDL Cholesterol levels are recommended to be <100 mg/dL Performed By: #### L IPB, 57424-2 ####[facility] LABCLIA [id number] [place] [id number] [place] Cholesterol.total/Ch olesterol in HDL [Mass ratio] 6.49 {ratio} High <5.10 [facility] Comment on above: Order Comment: Tessa men Type: BLOOD SPECIMENOrdering Facility: [facility] Address: [address] [place] [address] Performed By: #### L IPB, 32528-0 ####[facility] LABCLIA [id number] [place] [id number] [place] FASTING TIME 12. hrs Normal [facility] Comment on above: Order Comment: Speci men Type: BLOOD SPECIMENOrdering Facility: [facility] Address: [address] [place] [address] Performed By: #### L IPB, 08560-5 ####[facility] LABCLIA [id number] [place] [id number] [place] Triglyceride [Mass/Vol] 140 mg/dL Normal <150 [facility] Comment on above: Order Comment: Speci men Type: BLOOD SPECIMENOrdering Facility: [facility] Address: [address] [place] [address] Result Comment: <150 mg/dL, Normal 150-199 mg/dL, Borderline high 200-499 mg/dL, High >499 mg/dL, Very high Performed By: #### L IPB, 73264-2 ####[facility] LABIA [id number] [place] [address] [place] PSA/PROSTSPECAG [facility]CRA[facility] 07-29 Prostate specific Ag [Mass/Vol] 0.41 ng/mL Normal <2.60 [facility] Comment on above: Order Comment: Speci men Type: BLOOD SPECIMENOrdering Facility: [facility] Address: [address] [place] [address] Result Comment: Tota l PSA test methodology used is the Electrochemiluminescence Immunoassay by [employer]. Total PSA values by differing methodologies cannot be interchanged. Performed By: #### P SAS1 ####[facility] LABCLIA [id number] [place] [address] [place] TSH SerPl-aCncon 07-29-2021 TSH Qn 4.060 m[IU]/L Normal 0.270-4.200 [facility] Comment on above: Order Comment: Speci men Type: BLOOD SPECIMENOrdering Facility: [facility] Address: [address] [place] [address] Performed By: #### 3 016-3 ####[facility] LABCLIA [id number] [facility]LEYJOVI DAVENPORTRAH [id number] [place] [address] [place] URINALYSIS, REFLEX MICROSCOP ICon 07-29-2021 Bilirubin Ql (U) Negative Normal Negative [facility] Comment on above: Order Comment: Speci men Type: URINE SPECIMEN Ordering [facility] Address: [address] [place] [address] Performed By: #### L [id number] #### [facility] LAB CLIA [id number] [address] [place] [address] [place] Clarity (Unsp spec) Clear Normal Clear [facility] Comment on above: Order Comment: Speci men Type: URINE SPECIMEN [facility]ing [facility] Address: [address] [place] [address] Performed By: #### L [id number] #### [facility] LAB CLIA [id number] [address] [place] [address] STATES OF [facility] Color (U) Yellow Normal Yellow [facility] Comment on above: Order Comment: Speci men Type: URINE SPECIMEN [facility]ing [facility]: [facility] Address: [address] [place] [address] Performed By: #### L [id number] #### [facility] CLIA [id number] [address] [place] [address] [place] Glucose Test strip (U) [Mass/Vol] Negative Normal Negative [facility] Comment on above: Order Comment: Speci men Type: URINE SPECIMEN [facility]ing [facility] Address: [address] [place] [address] Performed By: #### L [id number] #### [facility] CLIA [id number] [address] [place] [address] [place] Hemoglobin Ql (U) Negative Normal Negative [facility] Comment on above: Order Comment: Speci men Type: URINE SPECIMEN [facility]ing [facility] Address: [address] [place] [address] Performed By: #### L [id number] #### [facility] CLIA [id number] [address] [place] [address] [place] Ketones Ql (U) Negative Normal Negative [facility] Comment on above: Order Comment: Speci men Type: URINE SPECIMEN [facility]ing [facility] Address: [address] [place] [address] Performed By: #### L [id number] #### [facility] CLIA [id number] [address] [place] [address] [place] Leukocyte esterase Test strip Ql (U) Negative Normal Negative [facility] Comment on above: Order Comment: Speci men Type: URINE SPECIMEN Ordering Facility: [facility] Address: [address] [place] [address] Performed By: #### L [id number] #### [facility] CLIA [id number] [address] [place] [address] [place] Nitrite Ql (U) Negative Normal Negative [facility] Comment on above: Order Comment: Speci men Type: URINE SPECIMEN [facility]ing Facility: [facility] Address: [address] [place] [address] Performed By: #### L [id number] #### [facility] CLIA [id number] [address] [place] [address] [place] pH (U) 5.5 [pH] Normal 5.0-8.0 [facility] Comment on above: Order Comment: Speci men Type: URINE SPECIMEN [facility]ing [facility] Address: [address] [place] [address] Performed By: #### L [id number] #### [facility] CLIA [id number] [address] [place] [address] [place] Protein (U) [Mass/Vol] Negative Normal Negative [facility] Comment on above: Order Comment: Speci men Type: URINE SPECIMEN [facility] Address: [address] [place] [address] Performed By: #### L [id number] #### [facility] CLIA [id number] [address] [place] [address] [place] Specific gravity (U) [Rel density] 1.025 Normal 1.005-1.030 [facility] Comment on above: Order Comment: Speci men Type: URINE SPECIMEN [facility]ing [facility] Address: [address] [place] [address] Performed By: #### L [id number] #### [facility] CLIA [id number] [address] [place] [address] Urobilinogen Ql (U) 0.2 EU/dL Normal 0.2-1.0 EU/dL [facility] Comment on above: Order Comment: Speci men Type: URINE SPECIMEN [facility]ing [facility] Address: [address] [place] [address] Performed By: #### L [id number] #### [facility] CLIA [id number] [address] [place] [address] [place] [facility] [place] VITAMIN D 25 HYDROXYon 07-29 25-hydroxyvitamin D3 [Mass/Vol] 29.1 ng/mL Low 31.0-80.0 [facility] Comment on above: Order Comment: Speci men Type: BLOOD SPECIMENOrdering Facility: [facility] Address: [address] [place], [place] [address] Result Comment: Clas sification of 25 [place] Vitamin D status: Deficiency/Insufficiency: < or = 30 ng/ml. Sufficiency/Optimal Levels: 31-80 ng/mL Toxicity: > 100 ng/mL. Test performed by chemiluminescent immunoassay. Performed By: #### V ITD ####[facility] LABCLIA [id number] [place] [address] [place] HISTORY PHYSICALon HISTORY PHYSICAL HNO ID: [id number] Author: Prisca Van PA-C Service: ? Author Type: Physician Electrician Yard Type: HANDP Filed: 07/26/2021 1:52 PM Note Text: [facility] This is a virtual visit. It required patient-provider interaction for the medical decision making as documented below. Patient has been identified by name and date of : Yes Reason for call: PACC visit Accompanied by: Self Patient name: Nehal Baig Scheduled Surgery: colonoscopy 07/31/2021 at [facility] CHIEF COMPLAINT: Patient presents with: Outpatient Colonoscopy [...] fevers. Neuro: No history of TIA's, stroke, TANK PROCESSOR tumor, impaired sensorium, hemiplegia, paraplegia or quadraplegia. No neurological symptoms or problems. Respiratory: No history of current cough or dyspnea, or pneumonia in the past 6 weeks. +asthma-uses Flovent daily, albuterol 3-5 times/week +JACOBY- BiPAP nightly +lung nodules Cardiovascular: No history of angina, CHF, [place], cardiac surgery or stents. Denies rest pain, [...] carotid puls (more content not included)... Normal [facility] CNOVon 07-25-2021 CNOV Office Visit ([facility] ) -- NEHAL BAIG ([id number]) 1970 M Date Time Provider Department 07/25/21 9:20 AM SALOME AGUILLON [facility] During your visit today, we recorded the following information about you: Pulse Blood pressure Weight Height 88/minute 136/78 182.3 kg 1.854 m Salome Aguillon APRN.HOIST WORKER 07/25/2021 5:32 PM Signed This note [...] or Coly (more content not included)... [facility]ESH [facility] ([facility]) -- NEHAL BAIG ([id number]) 1970 M Date Time Provider Department 07/25/21 SALOME AGUILLON [facility] During your visit today, we recorded the following information about you: Beatriz Cowan 07/25/2021 11:22 AM Signed [facility] states the Golytely is on backorder. They have the Newlytely in stock. Is it OK to substitute? Please advise. [phone]. Beatriz Cowan July 25, 2021 11:22 AM Salome Aguillon APRN.LEODAN 07/25/2021 12:05 PM Signed Called Anthony -pt [...] Date Reviewed: 07/25/2021 Reviewed by: Salome Aguillon APRN.LEODAN - Fully Assessed Reason for Visit: Medication [...] Status:Closed by SALOME AGUILLON on 07/25/21 Normal [facility] CT CHEST WO IVCONon 02-14-20 Radiology Result ACTIONABLE Abnormal [facility] Basic Metab w/rfx MGon 08-02 (cont.) Normal [facility] Comment on above: Result Comment: Aver age GFR for 40-49 years old: 99 mL/min/1.73sq m Chronic Kidney Disease: <60 mL/min/1.73sq m Kidney failure: <15 mL/min/1.73sq m eGFR calculated using average adult body mass. Additional eGFR calculator available at: http://www.Screenleap/multiple_crcl_2012.htm Performed By: #### C AXEL, BMPX ####[facility] HospitalTranscept PharmaceuticalsZbmzojijqkvc0689 [place] [id number] lab Director: Nate Stafford MD Anion gap [Moles/Vol] 11 mmol/L Normal 9-17 [facility] Comment on above: Performed By: #### C BC, BMPX ####[employer] [address] [place], [place] [id number] lab Director: Nate Stafford MD Calcium [Mass/Vol] 8.5 mg/dL Low 8.6-10.4 [facility] Comment on above: Performed By: #### C BC, BMPX ####[place] [address] [place] [address] Lab Director: Nate Stafford MD Chloride [Moles/Vol] 101 mmol/L Normal 98-107 [facility] Comment on above: Performed By: #### C BC, BMPX ####[facility] [address] [place] [address] Lab Director: Nate Stafford MD CO2 [Moles/Vol] 23 mmol/L Normal 20-31 [facility] Comment on above: Performed By: #### C BC, BMPX ####[facility] [address] [place] [address] [phone] Director: Nate Stafford MD Creatinine [Mass/Vol] 0.62 mg/dL Low 0.70-1.20 [facility] Comment on above: Performed By: #### C BC, BMPX ####[facility] [address] [place] [address] [phone] Director: Nate Stafford MD GFR, Amer >60 Normal >60 [facility] Comment on above: Performed By: #### C BC, BMPX ####[facility] [address] [place] [address] Lab Director: Nate Stafford MD GFR,non Amer >60 Normal >60 [facility] Comment on above: Performed By: #### C BC, BMPX ####[facility] [address] [place] [address] Lab Director: Nate Stafford MD Glucose [Mass/Vol] 120 mg/dL High 70-99 [facility] Comment on above: Performed By: #### C BC, BMPX ####[facility] [address] [place], [place] [phone] Director: Nate Stafford MD Potassium [Moles/Vol] 4.3 mmol/L Normal 3.7-5.3 [facility] Comment on above: Performed By: #### C BC, BMPX ####[facility] [address] [place] [address] Lab Director: Nate Stafford MD Sodium [Moles/Vol] 135 mmol/L Normal 135-144 [facility] Comment on above: Performed By: #### C BC, BMPX ####[facility] [address] [place] [address] Lab Director: Nate Stafford MD Urea nitrogen [Mass/Vol] 14 mg/dL Normal 6-20 [facility] Comment on above: Performed By: #### C BC, BMPX ####[facility] [address] [place], [place] [phone] Director: Nate Stafford MD BUN/CRE Ratio NOT REPORTED Normal -20 [facility] Comment on above: Performed By: #### C BC, BMPX ####[facility] [address] [place] [address] Lab Director: Nate Stafford MD Staging: NOT REPORTED Normal [facility] Comment on above: Performed By: #### C BC, BMPX ####[facility] [address] [place] [address] Lab Director: Nate Stafford MD Basic Metabolic Panel w/ Ref johnny to MGOrdered By: Halina Pathak on 08-02-2020 Anion gap [Moles/Vol] 11 mmol/L 9 - 17 mmol/L [employer] Phone: Calcium [Mass/Vol] 8.5 mg/dL Low 8.6 - 10. 4 mg/dL [employer] Phone: Chloride [Moles/Vol] 101 mmol/L 98 - 10 7 mmol/L [employer] Phone: CO2 [Moles/Vol] 23 mmol/L 20 - 31 mmol/L [employer] Phone: Creatinine [Mass/Vol] 0.62 mg/dL Low 0.70 - 1.20 mg/dL [employer] Phone: GFR >60 >60 mL/min [employer] Phone: GFR Non- >60 >60 mL/min [employer] Phone: GFR/1.73 sq M.predicted MDRD (S/P/Bld) [Vol rate/Area] [employer] Phone: Comment on above: Average GFR for 40-4 9 years old: 99 mL/min/1.73sq m Chronic Kidney Disease: <60 mL/min/1.73sq m Kidney failure: <15 mL/min/1.73sq m eGFR calculated using average adult body mass. Additional eGFR calculator available at: http://www.Screenleap/multiple_crcl_2012.htm GFR/1.73 sq M.predicted MDRD (S/P/Bld) [Vol rate/Area] NOT REPORTED [employer] Phone: Glucose [Mass/Vol] 120 mg/dL High 70 - 99 mg/dL [employer] Phone: Interpretation and review of laboratory results Abnormal [employer] Phone: Potassium [Moles/Vol] 4.3 mmol/L 3.7 - 5.3 mmol/L [employer] Phone: Sodium [Moles/Vol] 135 mmol/L 135 - 144 mmol/L [employer] Phone: Urea nitrogen (BldV) [Mass/Vol] 14 mg/dL 6 - 20 mg/dL [employer] Phone: Urea nitrogen/Creatinine (Bld) [Mass ratio] NOT REPORTED [employer] Phone: CBCon 08-02-2020 Erythrocyte distribution width (RBC) [Ratio] 13.0 % Normal 11.8-14.4 [facility] Comment on above: Performed By: #### C BC, BMPX ####[facility] [address] [place] [address] Lab Director: Nate Stafford MD Hematocrit (Bld) [Volume fraction] 41.8 % Normal 40.7-50.3 [facility] Comment on above: Performed By: #### C BC, BMPX ####[facility] [address] [place], [place] [phone] Director: Nate Stafford MD Hemoglobin (Bld) [Mass/Vol] 13.8 g/dL Normal 13.0-17.0 [facility] Comment on above: Performed By: #### C BC, BMPX ####[facility] [address] [place] [address])[phone] Director: Nate Stafford MD MCH (RBC) [Entitic mass] 29.3 pg Normal 25.2-33.5 [facility] Comment on above: Performed By: #### C BC, BMPX ####[facility] [address] [place] [phone])[phone] Director: Nate Stafford MD MCHC (RBC) [Mass/Vol] 33.0 g/dL Normal 28.4-34.8 [facility] Comment on above: Performed By: #### C BC, BMPX ####[facility] [address] [place] [address])[phone] Director: Nate Stafford MD MCV (RBC) [Entitic vol] 88.7 fL Normal 82.6-102.9 [facility] Comment on above: Performed By: #### C BC, BMPX ####[facility] [address]wtbv[address] [place], [place] [phone] Director: Nate Stafford MD NRBC Automated 0.0 per 100 WBC Normal 0.0 [facility] Comment on above: Performed By: #### C BC, BMPX ####[facility] [address] [place], [place] [phone] Director: Nate Stafford MD Platelet mean volume (Bld) [Entitic vol] 10.9 fL Normal 8.1-13.5 [facility] Comment on above: Performed By: #### C BC, BMPX ####[facility] [address] [place], [place] [phone] Director: Nate Stafford MD Platelets (Bld) [#/Vol] 221 10*3/uL Normal 138-453 [facility] Comment on above: Performed By: #### C BC, BMPX ####[facility] [address]jtvkj4878 [place], [place] [phone] Director: Nate Stafford MD RBC (Bld) [#/Vol] 4.71 10*6/uL Normal 4.21-5.77 [facility] Comment on above: Performed By: #### C BC, BMPX ####[facility] Bxdocbtjwbis9955 [place], [place] [phone] Director: Nate Stafford MD WBC (Bld) [#/Vol] 10.6 10*3/uL Normal 3.5-11.3 [facility] Comment on above: Performed By: #### C BC, BMPX ####[facility] Ifyrryzsekfp9[address] [place], [place] [phone] Director: Nate Stafford MD CBCOrdered By: Halina Pathak on 08-02-2020 Hematocrit (Bld) [Volume fraction] 41.8 % 40.7 - 50.3 % [employer] Phone: Hemoglobin.gastroint estinal spec 1 Ql (Stl) 13.8 g/dL 13.0 - 17.0 g/dL [employer] Phone: MCH (RBC) [Entitic mass] 29.3 pg 25.2 - 33.5 pg [employer] Work Phone: MCHC (RBC) [Mass/Vol] 33.0 g/dL 28.4 - 34.8 g/dL [employer] Phone: MCV (RBC) [Entitic vol] 88.7 fL 82.6 - 102.9 fL [employer] Phone: NRBC Automated 0.0 0.0 per 100 WBC [employer] Phone: Platelet distribution width (Bld) [Ratio] 13.0 % 11.8 - 14.4 % [employer] Phone: Platelet mean volume (Bld) [Entitic vol] 10.9 fL 8.1 - 13.5 fL [employer] Phone: Platelets (Bld) [#/Vol] 221 10*3/uL [employer] Phone: RBC (Bld) [#/Vol] 4.71 10*6/uL 4.21 - 5.7 7 m/uL [employer] Phone: WBC (Bld) [#/Vol] 10.6 10*3/uL [employer] Phone: Trauma Profileon 08-02-2020 (cont.) Normal [facility] Comment on above: Result Comment: Aver age GFR for 40-49 years old: 99 mL/min/1.73sq m Chronic Kidney Disease: <60 mL/min/1.73sq m Kidney failure: <15 mL/min/1.73sq m eGFR calculated using average adult body mass. Additional eGFR calculator available at: http://www.Bloom.com.com/multiple_crcl_2011.htm Performed By: #### E ISABEL GRUBBS ####[employer] [address] [place] [address] [facility] Director: Nate Stafford MD Anion gap [Moles/Vol] 10 mmol/L Normal 9-17 [facility] Comment on above: Performed By: #### E RTPF, TROPI ####[facility] [address] [place], [place] [phone] Director: Nate Stafford MD Chloride [Moles/Vol] 100 mmol/L Normal 98-107 [facility] Comment on above: Performed By: #### E RTPF, TROPI ####[facility] Tit[address]bwsfnbh75[address] [place], [place] [phone] Director: Nate Stafford MD CO2 [Moles/Vol] 24 mmol/L Normal 20-31 [facility] Comment on above: Performed By: #### E RTPF, TROPI ####[facility] Zxuf[address] [place], [place] [phone] Director: Nate Stafford MD Creatinine [Mass/Vol] 0.71 mg/dL Normal 0.70-1.20 [facility] Comment on above: Performed By: #### E RTPF, TROPI ####[facility] Hmmzlinqdkxv9261 [place], [place] [phone] Director: Nate Stafford MD Ethanol [Mass/Vol] mg/dL Normal <10 [facility] Comment on above: Performed By: #### E RTPF, TROPI ####[facility] [address]inhgblepdg[address] [place], [place] [phone] Director: Nate Stafford MD Ethanol percent <0.010 Normal <0.010 [facility] Comment on above: Performed By: #### E RTPF, TROPI ####[facility] [address]uxx[address] [place], [place] [phone] Director: Nate Stafford MD GFR, Amer >60 Normal >60 [facility] Comment on above: Performed By: #### E RTPF, TROPI ####[facility] Ikrfqbpt[address]ub4317 [place], [place] [phone] Director: Nate Stafford MD GFR,non Amer >60 Normal >60 [facility] Comment on above: Performed By: #### E RTBERNIE TROPI ####[facility] [address] [place] [address] Lab Director: Nate Stafford MD Glucose [Mass/Vol] 109 mg/dL High 70-99 [facility] Comment on above: Performed By: #### E RTBERNIE TROPI ####[facility] Mjoxrqutpdio4605 [place], [place] [phone] Director: Nate Stafford MD Potassium [Moles/Vol] 4.2 mmol/L Normal 3.7-5.3 [facility] Comment on above: Performed By: #### E RTBERNIE TROPI ####[facility] [address] [place] [phone])[phone] Director: Nate Stafford MD Sodium [Moles/Vol] 134 mmol/L Low 135-144 [facility] Comment on above: Performed By: #### E RTBERNIE TROPI ####[facility] [address] [place], [place] [address])[phone] Director: Nate Stafford MD Urea nitrogen [Mass/Vol] 15 mg/dL Normal 6-20 [facility] Comment on above: Performed By: #### E RTBERNIE TROPI ####[facility] [address]zf[address]slbuvz28[address] [place], [place] [address])[phone] Director: Nate Stafford MD Troponinon 08-02-2020 Troponin, High Sens 6 ng/L Normal 0-22 [facility] Comment on above: Result Comment: High Sensitivity Troponin values cannot be compared with other Troponin methodologies. Patients with high levels of Biotin oral intake (i.e >5mg/day) may have falsely decreased Troponin levels. Samples collected within 8 hours of biotin intake may require additional information for diagnosis. Performed By: #### E RTPAlanna TROPI ####[facility] [address]dtxyl[address] [place] [address] lab Director: Nate Stafford MD Type + Screenon 08-02-2020 Type + Screen Sample Expiration 08/04/2020,2359 Arm Band Number [place] [id number] ABO/Rh(D) A NEGATIVE Antibody Screen NEGATIVE Normal [facility] Comment on above: Performed By: #### T YS ####[address] [address] lab Director: Nate Stafford MD CT CERVICAL [...] Johnny Smalls MD 08/01/20 Final result Normal [facility] CT CERVICAL SPINE WO CONTRAS TOrdered By: Ronnie Lund on 08-01-2020 C6-7 cervical spondy losis and degenerative disc disease. Evidence of paracervical spasm. No acute bony abnormalities are noted [employer] Phone: EXAMINATION: CT OF T HE [...] intact. The visualized lung apices are clear. [employer] Phone: Francisco, Mhpn Incoming R adiant Results From [facility] - 08/01/2020 7:04 PM EDT EXAMINATION: CT [...] spasm. No acute bony abnormalities are noted [employer] Phone: CT CHEST ABDOMEN PELVIS W [...] Elizabeth Shoemaker MD 08/01/20 Final result Normal [facility] CT CHEST ABDOMEN PELVIS W CO [...] to Lung-RADS guidelines. Reference: Radiology. 2017; 284(1):228-43. [employer] Phone: EXAMINATION: CT OF T HE CHEST, [...] hernia. Bones/Soft Tissues: No acute osseous abnormality. [employer] Work Phone: Francisco, Mhpn Incoming R adiant Results From [facility] - 08/01/2020 7:19 PM EDT EXAMINATION: CT [...] to Lung-RADS guidelines. Reference: Radiology. 2017; 284(1):228-43. [facility] [employer] Work Phone: CT HEAD WO CONTRASTon 2020 CT [...] Jarek Fernández MD 08/01/20 Final result Normal [facility] CT Head WO ContrastOrdered B y: Ronnie Lund on 08-01-2020 1. No acute intracra nial abnormality. [employer] Phone: EXAMINATION: CT OF T HE [...] clear. SOFT TISSUES/SKULL: The calvarium is intact. [employer] Phone: Francisco, pn Incoming R adiant Results From [facility] - 08/01/2020 7:01 PM EDT EXAMINATION: CT [...] intact. IMPRESSION: 1. No acute intracranial abnormality. [employer] Phone: CT LUMBAR SPINE TRAUMA RECON [...] Johnny Smalls MD 08/01/20 Final result Normal [facility] CT THORACIC SPINE TRAUMA REC ONSTRUCTIONon [...] Johnny Smalls MD 08/01/20 Final result Normal [facility] Drug Scr, Abuse, Uron 2020 Amphetamine(s),Ur Negative Normal NEG [facility] Comment on above: Result Comment: (Positive cutoff 1000 ng/mL) Performed By: #### U AMIC, LOUIS #### [employer] [address] [place], [place] [phone] Tablet Technician: Nate Stafford MD Barbiturate(s),Ur Negative Normal NEG [facility] Comment on above: Result Comment: (Positive cutoff 200 ng/mL) Performed By: #### U AMIC, LOUIS #### [employer] [address] [place], [place] [phone] Tablet Technician: Nate Stafford MD Benzodiazepine(s) Negative Normal NEG [facility] Comment on above: Result Comment: (Positive cutoff 200 ng/mL) Performed By: #### U AMIC, LOUIS #### [employer] [address] [place] [address] Tablet Technician: Nate Stafford MD Cannabinoid(s),Ur Negative Normal NEG [facility] Comment on above: Result Comment: (Positive cutoff 50 ng/mL) Performed By: #### U AMIC, LOUIS #### [facility] [employer] [address] [place] [address] Tablet Technician: Nate Stafford MD Cocaine Metabolite Negative Normal NEG [facility] Comment on above: Result Comment: (Positive cutoff 300 ng/mL) Performed By: #### U AMIC, LOUIS #### [facility] [employer] [address] [place] [address] Tablet Technician: Nate Stafford MD Interpretive Info Assay provides medic al screening only. The absence of expected drug(s) and/or Normal [facility] Comment on above: Result Comment: meta bolite(s) may indicate diluted or adulterated urine, limitations of testing or timing of collection. Testing for legal purposes should be confirmed by another method. To request confirmation of test result, please call the lab within 7 days of sample submission. Performed By: #### U AMIC, LOUIS #### [facility] [employer] [address] [place] [address] Tablet Technician: Nate Stafford MD Methadone Ql (U) Negative Normal NEG [facility] Comment on above: Result Comment: (Positive cutoff 300 ng/mL) Performed By: #### U AMIC, LOUIS #### [employer] [address] [place] [address] Tablet Technician: Nate Stafford MD Opiate(s), Ur Negative Normal NEG [facility] Comment on above: Result Comment: (Positive cutoff 300 ng/mL) Performed By: #### U AMIC, LOUIS #### [facility] [address] [place] [address] Tablet Technician: Nate Stafford MD Oxycodone, Urine Negative Normal NEG [facility] Comment on above: Result Comment: (Positive cutoff 100 ng/mL) Performed By: #### U AMIC, LOUIS #### [facility] [address] [place] [address] Tablet Technician: Nate Stafford MD Phencyclidine, Ur Negative Normal NEG [facility] Comment on above: Result Comment: (Positive cutoff 25 ng/mL) Performed By: #### U AMIC, LOUIS #### [facility] [address] [place] [address] Tablet Technician: Nate Stafford MD Buprenorphrine, Ur NOT REPORTED Normal NEG [facility] Comment on above: Performed By: #### U AMIC, LOUIS #### [facility] [address] [place] [address] Tablet Technician: Nate Stafford MD MDMA, Urine NOT REPORTED Normal NEG [facility] Comment on above: Performed By: #### U AMIC, LOUIS #### [facility] [employer] [address] [place] [address] Tablet Technician: Nate Stafford MD Methamphetamine, Ur NOT REPORTED Normal NEG [facility] Comment on above: Performed By: #### U AMIC, LOUIS #### [facility] [employer] [address] [place] [address] Tablet Technician: Nate Stafford MD Propoxyphene,Urine NOT REPORTED Normal NEG [facility] Comment on above: Performed By: #### U AMIC, LOUIS #### [facility] [address] [place] [address] Tablet Technician: Nate Satfford MD Tricyclic antidepressants Screen Ql (U) NOT REPORTED Normal NEG [facility] Comment on above: Performed By: #### U AMIC, LOUIS #### [facility] [address] [place] [address] Tablet Technician: Nate Stafford MD No Panel InformationOrdered By: [...] to body habitus but requires clinical correlation. [employer] Phone: EXAMINATION: TWO XRA Y VIEWS [...] may relate to swelling or body habitus. [employer] Phone: Francisco, Mhpn Incoming R adiant Results From [facility] - 08/01/2020 9:41 PM EDT EXAMINATION: TWO [...] to body habitus but requires clinical correlation. [employer] Phone: No Panel InformationOrdered By: Ronnie Lund on 08-01-2020 Degenerative disc di sease at L5-S1. No acute bony abnormalities are seen in the thoracic or lumbar spine [employer] Phone: EXAMINATION: CT OF T HE [...] SOFT TISSUES/RETROPERITONEUM: No paraspinal mass is seen. [employer] Phone: Francisco, Mhpn Incoming R adiant Results From [facility] - 08/01/2020 7:11 PM EDT EXAMINATION: CT [...] seen in the thoracic or lumbar spine [employer] Phone: TRAUMA PANELOrdered By: Carlos Pathak on 08-01-2020 [facility] Unable to perform te sting: No specimen received. [employer] Phone: Anion gap [Moles/Vol] 10 mmol/L 9 - 17 mmol/L [employer] Phone: aPTT Coag (Bld) [Time] 23.3 s [employer] Phone: Comment on above: IV Heparin Therapy Range: 48.6-77.8 Blood Bank Specimen BILL FOR SERVICES PERFORMED [employer] Phone: Carboxyhemoglobin Unable to perform te sting: No specimen received. % [employer] Work Phone: Chloride [Moles/Vol] 100 mmol/L 98 - 10 7 mmol/L [employer] Phone: CO2 [Moles/Vol] 24 mmol/L 20 - 31 mmol/L [employer] Phone: Creatinine [Mass/Vol] 0.71 mg/dL 0.70 - 1.20 mg/dL [employer] Phone: Ethanol [Mass/Vol] mg/dL <10 mg/dL [employer] Phone: Ethanol percent <0.010 <0.010 % [employer] Work Phone: FIO2 Unable to perform te sting: No specimen received. [employer] Phone: GFR >60 >60 mL/min [employer] Phone: GFR Non- >60 >60 mL/min [employer] Phone: GFR/1.73 sq M.predicted MDRD (S/P/Bld) [Vol rate/Area] [employer] Phone: Comment on above: Average GFR for 40-4 9 years old: 99 mL/min/1.73sq m Chronic Kidney Disease: <60 mL/min/1.73sq m Kidney failure: <15 mL/min/1.73sq m eGFR calculated using average adult body mass. Additional eGFR calculator available at: http://www.Bloom.com.[employer]/multiple_crcl_2012.htm GFR/1.73 sq M.predicted MDRD (S/P/Bld) [Vol rate/Area] NOT REPORTED [employer] Phone: Glucose [Mass/Vol] 109 mg/dL High 70 - 99 mg/dL [employer] Phone: hCG Qual PATIENT IS MALE NEGATIVE [employer] [facility] Work Phone: HCO3, Venous Unable to perform te sting: No specimen received. 24.0 - 30.0 mmol/L [employer] Phone: Hematocrit (Bld) [Volume fraction] 42.3 % 40.7 - 50.3 % [employer] Phone: Hemoglobin.gastroint estinal spec 1 Ql (Stl) 14.2 g/dL 13.0 - 17.0 g/dL [employer] Phone: INR Coag (Bld) [Relative time] 1.0 {INR} [employer] Phone: Comment on above: Therapeutic Range: Moderate Anticoagulant Intensity: INR = 2.0-3.0 High Anticoagulant Intensity: INR = 2.5-3.5 Interpretation and review of laboratory results Abnormal [employer] Phone: MCH (RBC) [Entitic mass] 29.3 pg 25.2 - 33.5 pg [employer] Phone: MCHC (RBC) [Mass/Vol] 33.6 g/dL 28.4 - 34.8 g/dL [employer] Phone: MCV (RBC) [Entitic vol] 87.2 fL 82.6 - 102.9 fL [employer] Phone: Methemoglobin Unable to perform te sting: No specimen received. % [employer] Phone: Mode Unable to perform te sting: No specimen received. [employer] Phone: Negative Base Excess, Srikanth Unable to perform testing: No specimen received. 0.0 - 2.0 mmol/L [employer] Phone: NOTIFICATION Unable to perform te sting: No specimen received. [employer] Phone: NOTIFICATION TIME Unable to perform te sting: No specimen received. [employer] Phone: NRBC Automated 0.0 0.0 per 100 WBC [employer] Phone: O2 Device/Flow/% Unable to perform te sting: No specimen received. [employer] Phone: O2 Sat, Srikanth Unable to perform te sting: No specimen received. % [employer] Phone: Oxyhemoglobin Unable to perform te sting: No specimen received. 95.0 - 98.0 % [employer] Phone: pCO2, Srikanth Unable to perform te sting: No specimen received. [employer] Phone: pCO2, Srikanth, Temp Adj Unable to perform te sting: No specimen received. [employer] Phone: Peep/Cpap Unable to perform te sting: No specimen received. [employer] Phone: pH, Srikanth Unable to perform te sting: No specimen received. [employer] Phone: pH, Srikanth, Temp Adj Unable to perform te sting: No specimen received. [employer] Phone: Platelet distribution width (Bld) [Ratio] 12.9 % 11.8 - 14.4 % [employer] Phone: Platelet mean volume (Bld) [Entitic vol] 10.1 fL 8.1 - 13.5 fL [employer] Phone: Platelets (Bld) [#/Vol] 220 10*3/uL [employer] Phone: pO2, Srikanth Unable to perform te sting: No specimen received. [employer] Phone: pO2, Srikanth, Temp Adj Unable to perform te sting: No specimen received. [employer] Phone: Positive Base Excess, Srikanth Unable to perform testing: No specimen received. 0.0 - 2.0 mmol/L [employer] Phone: Potassium [Moles/Vol] 4.2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 07:14-0400 Body temperature 98.2 [degF] Santo Huynh MD [employer] Work Phone: 08-02-2020 07:14-0400 Diastolic blood pressure 95 mm[Hg] Santo Huynh MD [employer] Work Phone: 08-02-2020 07:14-0400 Heart rate 93 /min Santo Huynh MD [employer] Work Phone: 08-02-2020 07:14-0400 Respiratory rate 20 /min Santo Huynh MD [employer] Work Phone: 08-02-2020 07:14-0400 Systolic blood pressure 132 mm[Hg] Santo Huynh MD [employer] Work Phone: 08-01-2020 14:54-0400 Body height 185.4 cm Santo Huynh MD [employer] Work Phone: 08-01-2020 14:54-0400 Body mass index (BMI) [Ratio] 51.72 kg/m2 Santo Huynh MD [employer] Phone: 08-01-2020 14:54-0400 Body weight 177.81 kg [facility] Phone: Encounters Encounter Date Encounter Type Care Provider Facility Start: 11-11-2023 ambulatory [facility] Start: 10-07-2023 End: 10-07-2023 ambulatory [facility] Start: 09-26-2023 End: 09-26-2023 ambulatory [facility] Start: 09-26-2023 End: 09-26-2023 ambulatory [facility] Start: 09-26-2023 End: 09-26-2023 ambulatory [facility] Start: 09-26-2023 End: 09-26-2023 ambulatory Joel Bledsoe Facility:[facility] Start: 09-19-2023 End: 09-19-2023 ambulatory [facility] Start: 09-16-2023 End: 09-16-2023 ambulatory Brenton Pena MD Facility:[facility] Start: 09-06-2023 Evaluation and management of inpatient [facility] Start: 09-04-2023 Evaluation and management of inpatient [facility] Start: 09-03-2023 Evaluation and management of inpatient [facility] Start: 09-03-2023 Evaluation and management of inpatient [facility] Start: 09-03-2023 [facility]: 09-03-[facility]23 Evaluation and management of inpatient ISAIAS WOODARDSDSOPHIEGERALDINE [facility] Start: 09-03-2023 Evaluation and management of inpatient [facility] Start: 09-02-2023 End: 09-06-2023 [facility] Start: 08-14-2023 End: 08-14-2023 ambulatory NERISSAAB JAIME [facility] Start: 08-07-2023 End: 08-07-2023 ambulatory ANNABELLA [facility] Start: 08-06-2023 End: 08-06-2023 ambulatory HUAN COWAN Not Available Start: 07-25-2023 End: 07-25-2023 [facility]: [facility]: 07-17-2023 End: 07-17-2023 ambulatory ANNABELLA [facility] Start: 07-17-2023 ambulatory CARLEEN [facility] Start: 07-05-2023 Evaluation and management of inpatient ISAIAS DEMPSEY [facility] Start: 07-04-2023 [facility]: 07-03-[facility]23 [facility] Start: 07-02-2023 Evaluation and management of inpatient ISAIAS Herbert [place] [facility] Start: 07-01-2023 Evaluation and management of inpatient ISAIAS DEMPSEY [facility] Start: 07-01-2023 Evaluation and management of inpatient ISAIAS DEMPSEY [facility] Start: 06-30-2023 [facility] Start: 06-29-2023 Evaluation and management of inpatient ISAIAS DEMPSEY [facility] Start: 06-29-2023 Evaluation and management of inpatient ISAIAS DEMPSEY [facility] Start: 06-28-2023 Evaluation and management of inpatient ISAIAS Herbert [place] [facility] Start: 06-28-2023 Evaluation and management of inpatient [facility] Start: 06-27-2023 Evaluation and management of inpatient [facility] Start: 06-27-2023 Evaluation and management of inpatient [facility] Start: 06-26-2023 Evaluation and management of inpatient [facility] Start: 06-26-2023 Evaluation and management of inpatient [facility] Start: 06-26-2023 Evaluation and management of inpatient [facility] Start: 06-25-2023 End: 06-25-2023 [facility]: 06-21-[facility]23 Evaluation and management of inpatient GORDON NIX [facility] Start: 06-21-2023 Evaluation and management of inpatient [facility] Start: 06-21-2023 Evaluation and management of inpatient JODY KOCH [facility] Start: 06-20-2023 End: 07-05-2023 Evaluation and management of inpatient PAUL [facility] Start: 06-14-2023 End: 06-14-2023 ambulatory RUPERT ANGELES [facility] Start: 06-11-2023 End: 06-11-2023 ambulatory Salome [facility] Facility:[facility] Start: 06-11-2023 End: 06-11-2023 Patient encounter procedure [facility] Neurosurgery Work Phone: Start: 06-10-2023 ambulatory Vonnie Guerrero Facility: [facility] [place] Start: 04-22-2023 End: 04-22-2023 ambulatory Brenton Pena MD Facility:[facility] Start: 04-11-2023 End: 04-11-[address] [facility] Other Start: 04-11-2023 Office outpatient vi sit 15 minutes Siri Quezada [facility] Neurosurgery Start: 04-03-2023 End: 04-04-2023 ambulatory HUAN COWAN Not Available Start: 03-07-2023 End: 03-08-2023 ambulatory HUAN COWAN Not Available Start: 03-07-2023 End: 03-07-2023 ambulatory INTERNATIONAL TRADE SPECIALIST-C Salome Aguillon Work Phone: [facility] Work Phone: Start: 03-07-2023 End: 03-07-2023 Departed Referred INTERNATIONAL TRADE SPECIALIST-C Salome Aguillon Work Phone: [facility] Ctr-Lab [place] Work Phone: Start: 03-07-2023 End: 03-07-2023 Patient encounter procedure Huan Cowan [facility] Start: 03-04-2023 End: 03-04-2023 ambulatory Brenton Pena MD Facility:[facility] Start: 02-26-2023 End: 02-27-2023 ambulatory Huan Cowan Facility:[facility] Start: 02-26-2023 End: 02-26-2023 Patient encounter procedure Huan Cowan [facility] Start: 02-25-2023 End: 02-26-2023 ambulatory Huan Cowan Facility:[facility] Start: 02-25-2023 End: 02-25-2023 Patient encounter procedure Huan Cowan [facility] Start: 02-04-2023 Registered Recurring INTERNATIONAL TRADE SPECIALIST-C Lis Aguillon Work Phone: [facility] Ctr-Weight Management Work Phone: Start: 02-04-2023 Nutrition therapy Kandis Amado [facility] Start: 02-04-2023 End: 02-04-2023 ambulatory Brenton Pena MD [employer] Other Start: 01-28-2023 End: 01-28-2023 ambulatory Brenton Pena MD Facility:[facility] [place] Start: 01-22-2023 ambulatory Vonnie Yolanda Facility:[facility] [place] Start: 01-17-2023 Office outpatient ne w 45 minutes Siri Quezada [facility] Neurosurgery Start: 01-17-2023 End: 01-17-2023 Patient encounter procedure INTERNATIONAL TRADE SPECIALIST-C Salome Aguillon Work Phone: [facility] Ctr-XRay [facility] Work Phone: Start: 01-17-2023 End: 01-17-2023 ambulatory INTERNATIONAL TRADE SPECIALIST-C Salome Greenye Pal Work Phone: [facility] Work Phone: Start: 01-17-2023 End: 01-17-2023 Patient encounter procedure INTERNATIONAL TRADE SPECIALIST-C Salome Aguillon Work Phone: [facility] Ctr-XRay [facility] Work Phone: Start: 01-17-2023 End: 01-17-2023 ambulatory INTERNATIONAL TRADE SPECIALIST-C Salome Aguillon Work Phone: [facility] Work Phone: Start: 01-09-2023 End: 01-10-2023 ambulatory Vonnie L Yolanda Facility:[facility] [place] Start: 12-16-2022 Office outpatient ne w 20 minutes Kelly Yi [facility] Start: 12-16-2022 End: 12-16-2022 Patient encounter procedure INTERNATIONAL TRADE SPECIALIST-C Salome Pal Work Phone: [facility] Work Phone: Start: 12-16-2022 End: 12-16-[address] [facility]idya Other Start: 2022 Refill Salome alvarenga APRN.CNP Work Phone: [facility] [place] Comment on above: Refill Request Start: 07-10-2022 Refill [facility] Provider [facility] [place] Comment on above: Refill Request Start: 07-09-2022 Refill Salome alvarenga APRN.CNP Work Phone: [facility] [place] Comment on above: Refill Request Start: 05-28-2022 Telephone encounter Salome brown APRN.HOIST WORKER Work Phone: [facility] [place] Comment on above: Results Start: 05-26-2022 ambulatory SALOME AGUILLON Facilit y:[facility] Start: 05-21-2022 End: 05-21-2022 ambulatory SALOME AGUILLON Facility:[facility] Start: 05-21-2022 End: 05-21-2022 Patient encounter procedure Salome Aguillon APRN.HOIST WORKER Work Phone: [facility] [place] Comment on above: Morbid obesity with BMI of 50.0-59.9, adult (HCC) (Primary Dx); Vitamin D deficiency; Essential hypertension; Mixed hyperlipidemia; Impaired fasting blood sugar; Chronic pain due to trauma; Proteinuria, unspecified type Start: 05-19-2022 End: 05-20-2022 ambulatory SALOME AGUILLON Facility:[facility] Start: 04-20-2022 End: 04-21-[address] KINGSLEY HERRERA Facility: Start: 03-06-2022 ambulatory Salome alvarenga APRN.HOIST WORKER Work Phone: [facility] [place] Comment on above: PHMA/Care Gap Outrea ch (BP) Start: 02-15-2022 End: 02-15-2022 Patient encounter procedure Salome Aguillon APRN.HOIST WORKER Work Phone: [facility] [place] Comment on above: Morbid obesity with BMI of 50.0-59.9, adult (HCC) (Primary Dx); Essential hypertension; Mixed hyperlipidemia; Lung nodules; Chronic pain due to trauma; History of colon polyps; S/P shoulder replacement, left; Obstructive sleep apnea syndrome; Fatty liver; Impaired fasting blood sugar Start: 02-15-2022 End: 02-15-2022 ambulatory Salome Aguillon APRN.HOIST WORKER Work Phone: [facility] [place] Comment on above: BLOOD PRESSURE Start: 02-15-2022 E-mail encounter fro m caregiver Salome Aguillon APRN.HOIST WORKER Work Phone: [facility] Start: 02-10-2022 End: 02-11-2022 ambulatory [facility] Start: 01-02-2022 End: 01-02-2022 Patient encounter procedure Huan Brodie Cowan [facility] Start: 12-11-2021 Get Medical Advice Ccf Provider I nternal Medicine [place] Comment on above: Lisinopril refill Start: 11-15-2021 End: 11-15-2021 ambulatory [facility] Start: 11-15-2021 End: 11-15-2021 Patient encounter procedure Salome Aguillon RAD Work Phone: [facility] [place] Comment on above: Morbid obesity with BMI [...] on Start: 09-22-2021 End: 09-22-2021 ambulatory [facility] Start: 09-19-2021 End: 09-19-2021 ambulatory Brisa Edmondson RDMS Radiology Comment on above: Radiology US Start: 09-19-2021 End: 09-19-2021 Patient encounter procedure Brisa Edmondson RDMS [facility] Comment on above: SOB (shortness of br eath) on exertion Start: 09-19-2021 End: 09-19-2021 Subsequent hospital visit by physician [facility] Radiology Comment on above: Elevated liver enzym es [R74.8] Stenosis of carotid artery, unspecified laterality [I65.29] Start: 09-18-2021 End: 09-18-2021 Subsequent hospital visit by physician [facility] RADIO CT SCAN [facility] Comment on above: Lung nodules [R91.8] Start: [...] End: 08-30-2021 ambulatory ANH HOWARD Facility:[facility] Start: 08-30-2021 End: 08-30-2021 ambulatory Tarsha Jamison [...] to same day surgery center Huan Cowan [facility] Start: 08-15-2021 End: 08-15-2021 ambulatory [facility] Facility:[facility] Start: 08-15-2021 End: 08-15-2021 Patient encounter procedure Anh Howard MD Work Phone: Endocrinology Comment on above: Morbid obesity with BMI of 50.0-59.9, adult (HCC) (Primary Dx); Mixed hyperlipidemia; Essential hypertension; Arthralgia of multiple sites; Prediabetes; Obstructive sleep apnea syndrome; Abnormal weight gain; Fatty metamorphosis of liver Start: 08-10-2021 End: 08-10-2021 [facility] Facility:[facility] Start: 08-10-2021 End: 08-10-2021 Patient encounter procedure Salome Aguillon APRN.HOIST WORKER Work Phone: [facility] [place] Comment on above: Routine physical exa mination (Primary Dx); Mixed hyperlipidemia; Morbid obesity with BMI of 50.0-59.9, adult (HCC); Elevated liver enzymes; Stenosis of carotid artery, unspecified laterality; SOB (shortness of breath) on exertion; Essential hypertension; Lung nodules; Environmental allergies; Chronic pain after traumatic injury; Impaired fasting blood sugar Start: 08-10-2021 End: 08-10-2021 Physical examination Salome Aguillon APRN.HOIST WORKER Work Phone: [facility] [place] Start: 08-08-2021 End: 08-08-2021 Patient encounter procedure Huan Cowan [facility] Start: 07-31-2021 End: 07-31-2021 Subsequent hospital visit by physician Jayy Patel MD Work Phone: [facility] Endoscopy Comment on above: Dark stools [R19.5] Start: 07-29-2021 End: 07-30-2021 ambulatory SALOME AGUILLON Facility:[facility] Start: 07-29-2021 Encounter for other specified special examinations ANH HOWARD [facility] Start: 07-26-2021 End: 07-26-2021 ambulatory SALOME AGUILLON Facility:[facility] Start: 07-26-2021 Encounter for other preprocedural examination ANH COOMBS LEE [facility] Start: 07-26-2021 End: 07-26-2021 [facility] Start: 07-26-2021 End: 07-26-2021 ambulatory Pac [facility] Pre Anesthesia Comment on above: Pre-op evaluation (P rimary Dx); Screen for colon cancer; Essential hypertension; Mixed hyperlipidemia; Obstructive sleep apnea syndrome; Shortness of breath; Lung nodules; Morbid obesity with BMI of 50.0-59.9, adult (HCC) Start: 07-26-2021 End: 07-26-2021 Preprocedural examination done Pacc [facility] Pre Anesthesia Start: 07-25-2021 Telephone encounter Salome brown EZE.HOIST WORKER Work Phone: [facility] [place] Comment on above: Medication Problem Start: 07-25-2021 End: 07-25-2021 ambulatory SALOME AGUILLON Facility:[facility] Start: 07-25-2021 End: 07-25-2021 Patient encounter procedure Salome Aguillon EZE.HOIST WORKER Work Phone: [facility] [place] Comment on above: Essential hypertensi on (Primary Dx); Mild persistent asthma without complication; Screening for colon cancer; Bowel habit changes; Dark stools; Morbid obesity with BMI of 50.0-59.9, adult (HCC) Start: 06-27-2021 ambulatory Salome Garcia lyle LOO.HOIST WORKER Work Phone: [facility] [place] Comment on above: PHMA/Care Gap Outrea ch (BP, colo) Start: 02-13-2021 End: 02-13-2021 Subsequent hospital visit by physician [facility] Work Phone: Radiology Comment on above: Lung nodules [R91.8] Start: 08-01-2020 End: 08-02-2020 Evaluation and management of inpatient SALOME AGUILLON [facility] Start: 08-01-2020 End: 08-02-2020 Evaluation and [...] visit by physician Xr [facility] [place] Radiology Comment on above: Acute pain of left s houlder [M25.512] Procedures Date Procedure Procedure Detail Performing Clinician Start: 11-11-2023 Follow-up visit PAUL GEORGE Start: 08-14-2023 Follow-up visit PAUL GEORGE Start: 07-25-2023 Follow-up visit PAUL GEORGE Start: 06-14-2023 Follow-up visit PAUL GEORGE Start: 01-17-2023 X-ray of cervical spine INTERNATIONAL TRADE SPECIALIST-C Salome Aguillon Work Phone: Start: 01-17-2023 X-ray of lumbar spin e, six views including bending views INTERNATIONAL TRADE SPECIALIST-C Salome Aguillon Work Phone: Start: 12-16-2022 X-ray of left ankle INTERNATIONAL TRADE SPECIALIST- C Salome Aguillon Work Phone: Start: 09-19-2021 Echo tthrc r-t 2d w/wom-mode compl spec&colr d Salome Aguillon MANUFACTURING PLANT TECHNICIAN.HOIST WORKER Work Phone: Start: 09-19-2021 Duplex scan extracra nial art compl bi study Salome Aguillon MANUFACTURING PLANT TECHNICIAN.HOIST WORKER Work Phone: Start: 09-19-2021 Us abdominal real ti me w/image limited Salome Pal MANUFACTURING PLANT TECHNICIAN.HOIST WORKER Work Phone: Start: 09-18-2021 Ct thorax w/o contra st material Trey Sharma MD Work Phone: Start: 08-23-2021 Prosthetic total arthroplasty of left shoulder Huan Cowan Start: 08-09-2021 Adult depression scr eening assessment Salome Aguillon MANUFACTURING PLANT TECHNICIAN.HOIST WORKER Work Phone: Start: 07-31-2021 Colonoscopy flx dx w /collj spec when pfrmd Salome Hollandcecil MANUFACTURING PLANT TECHNICIAN.HOIST WORKER Work Phone: Start: 07-31-2021 Colonoscopy Jayy fontanez MD Work Phone: Start: 02-13-2021 Ct thorax w/o contra st material Salome Aguillon MANUFACTURING PLANT TECHNICIAN.HOIST WORKER Work Phone: Start: 08-06-2020 Adult depression scr eening assessment Salome Aguillon MANUFACTURING PLANT TECHNICIAN.HOIST WORKER Work Phone: Start: 08-02-2020 BASIC METABOLIC PANE L W/ REFLEX TO MG FOR LOW K Halinapernell Pathak DO Work Phone: Start: 08-02-2020 Blood [...] head/brain w/o co ntrast material Salome Aguillon APRN.HOIST WORKER Work Phone: Start: 12-17-2019 Radex shoulder compl ete minimum 2 views Salome Aguillon APRN.CNP Work Phone: Colonoscopy Huan Cowan H/O: vasectomy [...] - Td) DTaP/Tdap/Td vaccine (2 - Td) [employer] Work Phone: Start: 11-16-2025 Urine microalbumin profile DTA P,TDAP,TD (2 - Td or Tdap) [facility] Start: 08-18-2025 DIABETES SCREEN DIABETES SCREEN [facility] Start: 05-19-2025 DIABETES SCREEN DIABETES SCREEN [facility] Start: 02-10-2025 DIABETES SCREEN DIABETES SCREEN [facility] Start: 11-22-2024 LIPID SCREEN LIPID SCREEN [facility] Start: 07-31-2024 Colonoscopy COLONOSCOPY [facility] Start: 07-31-2024 COLORECTAL CANCER SCREENING COLORECTAL CANCER SCREENING [facility] Start: 07-29-2024 DIABETES SCREEN DIABETES SCREEN [facility] Start: 08-21-2023 ANNUAL PCP TEAM [employer]KVIEW DEVELOPER JIGAR DISEASE VISIT ANNUAL PCP TEAM CHRONIC DISEASE VISIT [facility] Start: 08-21-2023 BP CONTROLLED (<130/80) BP CONTROLLE D (<130/80) [facility] Start: 08-21-2023 COVID-19 VACCINE (#1) COVID-19 VACCI NE (#1) [facility] Comment on above: Postponed from 04/05 (Declined at this time) Start: 05-21-2023 ANNUAL PCP TEAM [employer] DEVELOPER JIGAR DISEASE VISIT ANNUAL PCP TEAM CHRONIC DISEASE VISIT [facility] Start: 02-15-2023 ANNUAL PCP TEAM [employer] DEVELOPER JIGAR DISEASE VISIT ANNUAL PCP TEAM CHRONIC DISEASE VISIT [facility] Start: 11-30-2022 Influenza vaccination [facility] Start: 11-22-2022 DIABETES SCREEN DIABETES SCREEN [facility] Start: 11-15-2022 ANNUAL PCP TEAM QLIKVIEW DEVELOPER JIGAR DISEASE VISIT ANNUAL PCP TEAM CHRONIC [...] [facility] Start: 08-10-2022 ANNUAL PCP TEAM QLIKVIEW DEVELOPER JIGAR DISEASE VISIT ANNUAL PCP TEAM CHRONIC [...] [facility] Start: 07-25-2022 ANNUAL PCP TEAM [employer] DEVELOPER JIGAR DISEASE VISIT ANNUAL PCP TEAM CHRONIC DISEASE VISIT [facility] Start: 05-28-2022 End: 07-28-2022 Protein/Creatinine [Mass Ratio] in Urine PROTEIN CREATININE RATIO Lab Routine Proteinuria, unspecified type Expected: 05/28/2022, Expires: 07/28/2022 [facility] Work Phone: Comment on above: Expected: 05/28/2022 , Expires: 07/28/2022 Start: 11-30-2021 Influenza vaccination [facility] Start: 10-19-2021 ANNUAL PCP TEAM QLIKVIEW DEVELOPER JIGAR DISEASE VISIT ANNUAL PCP TEAM CHRONIC DISEASE VISIT [facility] Start: 08-06-2021 Adult depression scr eening assessment DEPRESSION SCREENING [facility] Start: 08-02-2021 Creatinine measurement Creatinine mo nityvonne [facility] [employer] Phone: Start: 08-02-2021 Potassium monitoring Potassium monit yvonne [facility] [employer] Phone: Start: 11-30-2020 Influenza vaccination [facility] Start: 2017 COLOGUARD (FIT-DNA) COLOGUARD (FIT-D NA) [facility] Start: 2017 Colonoscopy COLONOSCOPY [facility] Start: 2017 COLORECTAL CANCER SCREENING COLORECTAL CANCER SCREENING [facility] Start: [address] COLONOGRAPHY [facility] Start: 2017 FECAL OCCULT BLOOD FECAL OCCULT BLOO D [facility] Start: 2017 SIGMOIDOSCOPY SIGMOIDOSCOPY [facility] Start: 2012 Diabetes screen Diabetes screen [facility] [employer] Phone: Start: 10-04-1991 Urine microalbumin profile DTAP,TDAP ,TD (1 - Tdap) [facility] Start: 1990 BP CONTROLLED (<130/80) BP CONTROLLE D (<130/80) [facility] Start: 1988 COVID-19 Vaccine (1) COVID-19 Vaccin e (1) [facility] [employer] Phone: Start: 10-04-1987 HIV screening HIV screen [facility] Work Phone: Start: 1982 Lipid panel Lipid screen [facility] Work Phone: Start: 1977 COVID-19 VACCINE (1) COVID-19 VACCIN E (1) [facility] Start: 1972 HEPATITIS B (1 of 3 - 3-dose series) HEPATITIS B (1 of 3 - 3-dose series) [facility] Start: 1972 Hepatitis C screening Hepatitis C sc reen [facility] [employer] Phone: End: 07-25-2022 COLONOSCOPY DIAGNOSTIC COLONOSCOPY DIAGNOSTIC Endoscopy Routine Dark stools 1 Occurrences starting 07/25/2021 until 07/25/2022 [facility] Work Phone: Comment on above: 1 Occurrences starti ng 07/25/2021 until 07/25/2022 Ct thorax w/o contra st material CT CHEST WO IVCON Radiology Timed Lung nodules 09/18/2021 12:09 PM EDT [facility] Work Phone: End: 09-09-2022 Duplex scan extracranial art compl bi study US CAROTID BILAT Radiology Routine Stenosis of carotid artery, unspecified laterality 1 Occurrences starting 08/10/2021 until 09/09/2022 [facility] Work Phone: Comment on above: 1 Occurrences starti ng 08/10/2021 until 09/09/2022 End: 08-10-2022 Echocardiography ECHO Cardiology Routine SOB (shortness of breath) on exertion 1 Occurrences starting 08/10/2021 until 08/10/2022 [facility] Work Phone: Comment on above: 1 Occurrences starti ng 08/10/2021 until 08/10/2022 EKG 12 Lead EKG 12 Lead ECG STAT 08/01/2020 9:26 PM EDT [employer] Work Phone: Oxygen therapy [[facility] Data Set] Initiate Oxygen Therapy Protocol Respiratory Care Routine Daily until discontinued starting 08/02/2020 [employer] Work Phone: Comment on above: Daily until disconti nued starting 08/02/2020 SURGICAL PATHOLOGY [facility] Work Phone: Comment on above: Release Upon Maddyin g for 1 Occurrences starting 07/31/2021, 1 completed End: 09-09-2022 Us abdominal real time w/image limited US ABD RT UPPER QUADRANT Radiology Routine Elevated liver enzymes 1 Occurrences starting 08/10/2021 until 09/09/2022 [facility] Work Phone: Comment on above: 1 Occurrences starti ng 08/10/2021 until 09/09/2022 End: 06-20-2023 US KIDNEY/BLADDER US KIDNEY/BLADDER Radiology Routine Proteinuria, unspecified type 1 Occurrences starting 05/21/2022 until 06/20/2023 [facility] Work Phone: Comment on above: 1 Occurrences starti ng 05/21/2022 until 06/20/2023 [facility] Immunizations Immunization Date Immunization Notes Care Provider Norma robles 11-17-2015 tetanus toxoid, reduced diphtheria toxoid, and acellular pertussis vaccine, adsorbed Huan Cowan [facility] 02-07-2015 influenza virus vaccine, unspecified formulation Huan Cowan [facility] 02-07-2015 influenza, seasonal, injectable Salome Pal RAD Work Phone: [facility] NEGATED: Highlighted row has not occurred!01-09-2023 influenza virus vaccine, unspecified formulation Huan Yung [facility] Payers Date Payer Category Payer Self-pay [id number] 2022 [employer] Blue [employer] [id number] 2021 Unknown [id number] 2020 Unknown [facility] [id number] 2020-Present [phone] [place] [address] [id number] [id number]. 2.7.3.209392.315 2020 Unknown [id number]. 1.13.159. 2.7.3.504600.315 2020 Unknown [id number] 2020 Unknown [id number] 2020 Unknown [id number] 1.2.840.302024.1.13.239. 2.7.3.178019.315 2020 Private Health Insurance xxx [id number] 1.2.840.823110.1.13.159. 2.7.3.114902.315 2020 Private Health Insurance [id number] 2019 Private Health Insurance 1.2 .840.092071.1.13.159. 2.7.3.341694.315 1972 Unknown [id number] 2.16.840.1.631482.3.579. 2.175 1972 Unknown [id number] 2.16.840.1.486917.3.579. 2.593 1972 Unknown [id number] 2.16.840.1.756216.3.579. 2.9 1972 Unknown [id number] 2.16.840.1.956231.3.579. 2.1258 1972 Unknown [id number] 2.16.840.1.225568.3.579. 2.1259 1972 Unknown [id number] 2.16.840.1.691194.3.579. 2.1258 1972 Unknown [id number] 2.16.840.1.115453.3.579. 2.1259 1972 Unknown [id number] 2.16.840.1.366965.3.579. 2.1259 1972 Unknown [id number] 2.16.840.1.745652.3.579. 2.1259 1972 Unknown [id number] 2.16.840.1.431990.3.579. 2.125 1972 Unknown [id number] 2.16.840.1.704497.3.579. 2.1259 1972 Unknown [id number] 2.16.840.1.843398.3.579. 2.1259 1972 Unknown [id number] 2.16.840.1.870133.3.579. 2.727 1972 Unknown [id number] 2.16.840.1.318849.3.579. 2.727 1972 Unknown [id number] 2.16.840.1.839896.3.579. 2.727 1972 Unknown [id number] 2.16.840.1.724475.3.579. 2.727 1972 Unknown [id number] 2.16.840.1.855070.3.579. 2.727 1972 Unknown [id number] 2.16840.1.594973.3.579. 2.196 1972 Unknown [id number] 2.16840.1.238245.3.579. 2.196 1972 Unknown [id number] 2.16840.1.939407.3.579. 2.196 1972 Unknown [id number] 2.16840.1.537719.3.579. 2.196 1972 Unknown [id number] 2.16840.1.212163.3.579. 2.196 1972 Unknown [id number] 2.16840.1.647062.3.579. 2.718 1972 Unknown [id number] 2.16840.1.268553.3.579. 2.718 1959 Unknown [id number] Private Health Insurance [facility] [id number] Unknown [id number] 2.16840.1.118939.3.579. 2.531 Unknown [id number] 2.16840.1.792353.3.579. 2.531 Unknown [id number] 2.16.840.1.292295.3.579. 2.531 Unknown [id number] 2.16840.1.937067.3.579. 2.531 Unknown [id number] 2.16.840.1.875734.3.579. 2.531 Social History Date Type Detail Facility Start: 08-02-2020 End: 06-06-2023 Tobacco smoking status NHIS Never smoker [facility] Comment on above: denies current use Start: 02-07-2015 End: 08-02-2020 Tobacco use and exposure Never used [employer] Start: 08-02-2020 Alcohol intake Ex-drinker (finding) [employer] Phone: Start: 1970 Sex Assigned At Not on file [employer] Phone: Start: 11-14-2019 End: 11-15-2021 Exposure to SARS-CoV-2 (event) Not sure [employer] Start: 12-14-2019 End: 03-30-2021 Alcohol intake Current [...] 08-06-2020 Education 15 [facility] Tobacco [facility] Comment on above: denies current use Start: 11-23-2019 End: 08-17-2021 Sex Assigned At Male [facility] Start: 1970 Sex Assigned At Male [facility] Tobacco smoking status No Smokin g Status Entered [facility] Start: 01-31-2022 End: 02-10-2022 Exposure [facility]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 PROGRAM OFFICE/OUTPATIENT [facility] 60-74 MINUTES Anh Mena MD [address] [facility], [address] [place] [address] Referral ID Status Reason Start Date Expiration Date Visits Requested Visits Authorized [id number] Pending Review PCP Requested Referral 09/13/2021 09/13/2022 1 1 Specialty Diagnoses / Procedures Referred By Contac t Referred To Contact CT IMAGING Diagnoses Lung nodules Procedures CT CHEST WO IVCON CAT SCAN OF CHEST Trey Sharma MD [address] [facility] [address] [place] [address] Ct Imaging Referral ID Status Reason Start Date Expiration Date V isits Requested Visits Authorized [id number] Closed Auto-Generate d Referral 08/11/2021 04/29/2022 1 1 Specialty Diagnoses / Procedures Referred By Contac t Referred To Contact Nephrology Diagnoses Proteinuria, unspecified type Procedures CONSULT TO NEPHROLOGY OFFICE/OUTPATIENT [facility] 60-74 MINUTES Salome Aguillon, MANUFACTURING PLANT TECHNICIAN.HOIST WORKER [address] [place] [address] Referral ID Status Reason Start Date Expiration Date Visits Requested Visits Authorized [id number] Pending Review PCP Requested Referral 05/21/2022 05/21/2023 1 1 Specialty Diagnoses / Procedures Referred By Contac t Referred To Contact US IMAGING Diagnoses Proteinuria, unspecified type Procedures US KIDNEY/BLADDER US RETROPERITONEAL REAL TIME W/IMAGE COMPLETE Salome Aguillon, MANUFACTURING PLANT TECHNICIAN.HOIST WORKER [address] [place] [address] Us Imaging Referral ID Status Reason Start Date Expiration Date Visits Requested Visits Authorized [id number] Authorized Auto-Generat ed Referral 05/21/2022 06/20/2023 1 1 Specialty Diagnoses / Procedures Referred By Contac t Referred To Contact Nutrition Diagnoses Morbid obesity with BMI of 50.0-59.9, adult (HCC) Procedures CONSULT TO NUTRITION THERAPY MEDICAL NUTRITION ASSMT&IVNTJ INDIV EACH 15 LA MEDICAL NUTRITION ASSMT&IVNTJ INDIV EACH 15 LA MEDICAL NUTRITION ASSMT&IVNTJ INDIV EACH 15 [place] MEDICAL NUTRITION ASSMT&IVNTJ INDIV EACH 15 LA Salome Aguillon, EZE.HOIST WORKER [address] [place] [address] Referral ID Status Reason Start Date Expiration Date Visits Requested Visits Authorized [id number] Pending Review PCP Requested Referral 05/21/2022 05/21/2023 1 1 Reason evaluate and treat Diagnosis 1 Lumbar radiculopathy , right (M54.16) Referral Organization [facility] Referring Provider First Name Siri Referring Provider Last Name Damien Referring Provider Specialty Nurse Pract itioner Referred Organization [facility] Referred Provider Cyndi Mejia Referred Address [address] [place], [place],[address] Referred Provider Specialty Pain Medicin e Referral Priority Routine General Notes [facility] 023 02:42:58 PM >Received today and waiting for office notes to be locked before sending referral Reason weight managment Diagnosis 1 BMI 50.0-59.9, adult (Z68.43) Referral Organization [facility] Referring Provider First Name Siri Referring Provider Last Name Damien Referring Provider Specialty Nurse Pract itioner Referred Organization [facility] Referred Provider Reece Cyr Referred Address [address] [facility],[address],[place], [place],[address] Referred Provider Specialty Internal Med icine Referral Priority Routine General Notes [facility] 023 01:36:37 PM >Received today and sent P2P Reason evaluate and treat Diagnosis 1 Lumbar radiculopathy , right (M54.16) Referral Organization [facility] Referring Provider First Name Siri Referring Provider Last Name Damien Referring Provider Specialty Nurse Pract nasrin Referred Organization [facility] Referred Address [address] [place], [place],[address] Referred Provider Specialty Physical The rapist Referral Priority Routine Advance Directives No Advanced Directives Records FoundLatest Code Status on File Code Status Date Activated Date Inactivated Comments Full Code 08/01/2020 11:59 PM Documents on File Type Date Recorded Patient Teacher Visually Impaired Expl anation Advance Directive(s) 01/24/2021 2:04 PM Advance Directive(s) 12/27/2020 12:28 PM Documents on File Type Date Recorded Patient Teacher Visually Impaired Expl anation Advance Directive(s) 01/24/2021 2:04 PM Advance Directive(s) 12/27/2020 12:28 PM Documents on File Type Date Recorded Patient Teacher Visually Impaired Expl anation Advance Directive(s) 07/31/2021 8:28 AM Advance Directive(s) 01/24/2021 2:04 PM Advance Directive(s) 12/27/2020 12:28 PM Documents on File Type Date Recorded Patient Teacher Visually Impaired Expl anation Advance Directive(s) 07/31/2021 8:28 AM [...] hematoma, initial encounter Juanita Carmona MD [address] [facility], [facility] [address] [place] [address] [facility] Reason Onset Date Comments PHMA/Care Gap Outreach 06/27/2021 BP, colo Reason Comments Medication Problem Reason Comments Rx Refills Reason Comments Outpatient Colonoscopy Reason Comments Physical colonoscopy result Reason Comments New Patient [place] Obesity Specialty Diagnoses / Procedures Referred By Contac t Referred To Contact Diagnoses Morbid obesity with BMI of 50.0-59.9, adult (HCC) Procedures ENDOCRINE MEDICAL WEIGHT MANAGEMENT OFFICE/OUTPATIENT [facility] 60-74 MINUTES Salome Aguillon APRN.HOIST WORKER [address] [place] [address] Referral ID Status Reason Start Date Expiration Date Visits Requested Visits Authorized [id number] Pending Review PCP Requested Referral 08/10/2021 08/10/2022 1 1 Reason Comments Patient Education Assessment Specialty Diagnoses / Procedures Referred By Contac t Referred To Contact Nutrition Diagnoses Morbid obesity with BMI of 50.0-59.9, adult (HCC) Mixed hyperlipidemia Essential hypertension Arthralgia of multiple sites Prediabetes Obstructive sleep apnea syndrome Abnormal weight gain Fatty metamorphosis of liver Procedures CONSULT TO NUTRITION THERAPY OFFICE/OUTPATIENT [facility] 60-74 MINUTES Anh Mena MD [address] [facility], [address] [place] [address] Referral ID Status Reason Start Date Expiration Date Visits Requested Visits Authorized [id number] Pending Review PCP Requested Referral 08/15/2021 11/13/2021 1 1 Reason Comments Medical Weight Management Specialty Diagnoses / Procedures Referred By Brian gonzales Referred To Contact CT IMAGING Diagnoses Lung nodules Procedures CT CHEST WO IVCON CAT SCAN OF CHEST Trey Sharma MD [address] [place] [address] Ct Imaging Referral ID Status Reason Start Date Expiration Date V isits Requested Visits Authorized [id number] Closed Auto-Generate d Referral 08/11/2021 04/29/2022 1 [...] section and content) DATE CREATED AUTHOR 08/08/2020 [facility] DATE CREATED AUTHOR AUTHOR'S ORGANIZ ATION 08/01/2021 [facility] DATE CREATED AUTHOR AUTHOR'S ORGANIZ ATION 09/21/2021 [facility] DATE CREATED AUTHOR AUTHOR'S ORGANIZ ATION 04/25/2022 [facility] DATE CREATED AUTHOR AUTHOR'S ORGANIZ ATION 05/27/2022 [facility] DATE CREATED AUTHOR AUTHOR'S ORGANIZ ATION 05/31/2022 [facility] DATE CREATED AUTHOR AUTHOR'S ORGANIZ ATION 08/08/2023 [facility]IC DATE CREATED AUTHOR AUTHOR'S ORGANIZ ATION 08/29/2023 [facility] DATE CREATED AUTHOR AUTHOR'S ORGANIZ ATION 09/25/2023 [facility] DATE CREATED AUTHOR AUTHOR'S ORGANIZ ATION 09/27/2023 [facility] DATE CREATED AUTHOR AUTHOR'S ORGANIZ ATION 10/17/2023 [facility] DATE CREATED AUTHOR AUTHOR'S ORGANIZ ATION 11/16/2023 [facility] Source Comments (unrecognize d section and [...] Care Teams (unrecognized sec tion and content) Birthing Nurse Relationship Specialty Start Date End Date Salome Aguillon, MANUFACTURING PLANT TECHNICIAN.HOIST WORKER [address] [place] [address] PCP - General Family Practice 11/23/19 Birthing Nurse Relationship Specialty Start Date End Date Salome Aguillon, MANUFACTURING PLANT TECHNICIAN.HOIST WORKER [address] [place] [address] PCP - General Family Practice 11/23/19 Birthing Nurse Relationship Specialty Start Date End Date Salome Aguillon, MANUFACTURING PLANT TECHNICIAN.HOIST WORKER [address] [place] [address] PCP - General Family Practice 11/23/19 Birthing Nurse Relationship Specialty Start Date End Date Salome Aguillon, MANUFACTURING PLANT TECHNICIAN.HOIST WORKER [address] [place] [address] PCP - General Family Practice 11/23/19 Birthing Nurse Relationship Specialty Start Date End Date Salome Aguillon, MANUFACTURING PLANT TECHNICIAN.HOIST WORKER [address] [place] [address] PCP - General Family Practice 11/23/19 Birthing Nurse Relationship Specialty Start Date End Date Salome Aguillon, MANUFACTURING PLANT TECHNICIAN.HOIST WORKER [address] [place] [address] PCP - General Family Practice 11/23/19 Birthing Nurse Relationship Specialty Start Date End Date [facility] Salome, MANUFACTURING PLANT TECHNICIAN.HOIST WORKER [address] [place] [address] PCP - General Family Practice 11/23/19 Birthing Nurse Relationship Specialty Start Date End Date [facility] Salome, MANUFACTURING PLANT TECHNICIAN.HOIST WORKER [address] [place] [address] PCP - General Family Practice 11/23/19 Birthing Nurse Relationship Specialty Start Date End Date [facility] Salome, MANUFACTURING PLANT TECHNICIAN.HOIST WORKER [address] [place] [address] PCP - General Family Practice 11/23/19 Birthing Nurse Relationship Specialty Start Date End Date [facility] Salome, MANUFACTURING PLANT TECHNICIAN.HOIST WORKER [address] [place] [address] PCP - General Family Practice 11/23/19 Birthing Nurse Relationship Specialty Start Date End Date [facility] Salome, MANUFACTURING PLANT TECHNICIAN.HOIST WORKER [address] [place] [address] PCP - General Family Practice 11/23/19 Birthing Nurse Relationship Specialty Start Date End Date [facility] MANUFACTURING PLANT TECHNICIAN.HOIST WORKER [address] [place] [address] PCP - General Family Practice 11/23/19 Birthing Nurse Relationship Specialty Start Date End Date [facility] Salome, MANUFACTURING PLANT TECHNICIAN.HOIST WORKER [address] [place] [address] PCP - General Family Practice 11/23/19 Birthing Nurse Relationship Specialty Start Date End Date [facility] MANUFACTURING PLANT TECHNICIAN.HOIST WORKER [address] [place] [address] PCP - General Family Practice 11/23/19 Birthing Nurse Relationship Specialty Start Date End Date [facility] MANUFACTURING PLANT TECHNICIAN.HOIST WORKER [address] [place] [address] PCP - General Family Practice 11/23/19 Birthing Nurse Relationship Specialty Start Date End Date [facility], MANUFACTURING PLANT TECHNICIAN.HOIST WORKER [address] [place] [address] PCP - General Family Medicine 11/23/19 Birthing Nurse Relationship Specialty Start Date End Date [facility], MANUFACTURING PLANT TECHNICIAN.HOIST WORKER [address] [place] [address] PCP - General Family Medicine 11/23/19 Birthing Nurse Relationship Specialty Start Date End Date [facility], MANUFACTURING PLANT TECHNICIAN.HOIST WORKER [address] [place] [address] PCP - General Family Medicine 11/23/19 Birthing Nurse Relationship Specialty Start Date End Date Salome Aguillon, MANUFACTURING PLANT TECHNICIAN.HOIST WORKER [address] [place] [address] PCP - General Family Medicine 11/23/19 Birthing Nurse Relationship Specialty Start Date End Date Salome Aguillon, MANUFACTURING PLANT TECHNICIAN.HOIST WORKER [address] [place] [address] PCP - General Family Medicine 11/23/19 Birthing Nurse Relationship Specialty Start Date End Date [facility], MANUFACTURING PLANT TECHNICIAN.HOIST WORKER [address] [place] [address] PCP - General Family Medicine 11/23/19 Birthing Nurse Relationship Specialty Start Date End Date Salome Aguillon, MANUFACTURING PLANT TECHNICIAN.HOIST WORKER [address] [place] [address] PCP - General Family Medicine 11/23/19 Birthing Nurse Relationship Specialty Start Date End Date [facility], MANUFACTURING PLANT TECHNICIAN.HOIST WORKER [address] [place] [address] PCP - General Family Medicine 11/23/19 Birthing Nurse Relationship Specialty Start Date End Date [facility] Salome, MANUFACTURING PLANT TECHNICIAN.HOIST WORKER [address] [place] [address] PCP - General [facility] Medicine 11/23/19 Birthing Nurse Relationship Specialty Start Date End Date [facility] Salome, MANUFACTURING PLANT TECHNICIAN.HOIST WORKER [address] [place] [address] PCP - General [facility] Medicine 11/23/19 Birthing Nurse Relationship Specialty Start Date End Date [facility] Salome, MANUFACTURING PLANT TECHNICIAN.HOIST WORKER [address] [place] [address] PCP - General [facility] Medicine 11/23/19 Birthing Nurse Relationship Specialty Start Date End Date [facility] Salome, MANUFACTURING PLANT TECHNICIAN.HOIST WORKER [address] [place] [address] PCP - General [facility] Medicine 11/23/19 Team Status: Active Member Role Status Dates Vonnie Guerrero INTERNATIONAL TRADE SPECIALIST-C Primary Care Provider Active Team Status: Inactive Member Role Status Dates Vonnie Guerrero NP-C Primary Care Provider Active Siri Quezada NP-Krissy Attending Provider Active Team Status: Inactive Member Role Status Dates Salome Aguillon , INTERNATIONAL TRADE SPECIALIST-C Primary Care Provider Acti tyler Yi NP-C Attending Provider Active Team Status: Inactive Member Role Status Dates Salome Aguillno INTERNATIONAL TRADE SPECIALIST-C Primary Care Provider Acti tyler Quezada NP-Krissy Attending Provider Active Team Status: Inactive Member Role Status Dates Huan Cowan DO Attending Provider Active Team Status: Active Member Role Status Dates Vonnie Guerrero INTERNATIONAL TRADE SPECIALIST-C Primary Care Provider Active Siri Quezada NP-C Attending Provider Active Team Status: Active Member Role Status Dates PHYSICIAN NO FAMILY Primary Care Provider Active Team Status: Inactive Member Role Status Dates PHYSICIAN NO FAMILY Primary Care Provider Active Start: June 11, 2023 End: June 11, 2023 HAIDER Beard Attending Provider Active Start: June 11, 2023 [...] BE BASED ON THE PRIMARY CLINICAL RECORDS. [facility] [employer] provides no warranty or guarantee of the accuracy or completeness of information in this document.
[2023-11-25 07:50] LABS: INR 1.88; Prothrombin Time 18.7 sec (9.0-11.6)
[2023-11-25 08:38] VITALS: BP 123/60; PULSE 75; TEMP 36.6; O2SAT 98
[2023-11-25] MEDS: 0.9 % SODIUM CHLORIDE 10 ML SYRINGE - SALINE FLUSH INJ (09:05)
[2023-11-25] MEDS: IOHEXOL 240 MG/ML - 10 ML VIAL INJ (09:05)
[2023-11-25] MEDS: BUPIVACAINE HCL 0.25% PF 25 MG/10 ML VIAL INJ (09:05)
[2023-11-25 09:06] VITALS: BP 117/56; PULSE 77; O2SAT 98
[2023-11-25] MEDS: TRIAMCINOLONE ACETONIDE 40 MG/ML VIAL 80 MG INJ (09:06)
[2023-11-25] MEDS: LIDOCAINE HCL 2% 400 MG/20 ML MDV 5 ML INJ (09:06)
[2023-11-25 09:08] VITALS: BP 119/67; PULSE 75; O2SAT 96
--- NOTE | 2023-11-25 09:08 | W.PM.PROCNOT ---
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 Informed consent was obtained and placed on the chart.? Patient was brought to the medical procedure unit and placed in the prone position where a timeout was completed verifying the correct patient, procedure site, position, and planned special equipment using sterile aseptic technique.? Under direct fluoroscopic visualization a 25-gauge Quincke tipped spinal needle was advanced at level left L5-S1 to the designated neural foramen where contrast dye was injected to show adequate spread.? There was no evidence of vascular or adverse uptake.? Epidural spread was appreciated.? The above-mentioned injectate was then placed in a 1.5 mL aliquot preceded by negative aspiration.? The needle was removed. The same procedure, at the same level, was completed on the opposite side. ? Patient was taken to the postprocedural recovery area and monitored for an appropriate length of time before found suitable for discharge in the accompaniment of a responsible adult. Surgeon: Brenton Pena Pathology: none sent Condition: stable Disposition: no change
== END 2023-11-25 09:18 | disposition home or self-care (01) ==
PROVIDERS: PCP Family Medicine; Visit Provider Anesthesiology
DX: M48.062 Spinal stenosis, lumbar region with neurogenic claudication (principal)
CPT/HCPCS: 36415; 64483; 85610; J0665; J3301; Q9966

== ENCOUNTER 2023-12-02 00:56 | Outpatient (RCR) | payer BC, SELFPAY | END 2023-12-30 23:52 | disposition home or self-care (01) | LOC: MM 00:56 | PROVIDERS: PCP Family Medicine; Visit Provider Internal Medicine | DX: Z51.81 Encounter for therapeutic drug level monitoring (principal); Z79.01 Long term (current) use of anticoagulants; Z95.2 Presence of prosthetic heart valve | CPT/HCPCS: 85610; G0463 ==

== ENCOUNTER 2023-12-04 15:06 | Outpatient (OUT) | payer BC, SELFPAY ==
--- NOTE | 2023-12-04 15:32 | P.CN_ITS ---
Consult Note: HPI Data of Consult Patient: known to practice within the last 3 years Consult date: 09/16/23 Requesting Physician: Miya Batista NP Primary Care Provider: Demetrius Parish MD Consult Narrative Reason for consult: low back pain Narrative: 53yom who presents for assessment. notes significant low back pain that is worsened with ambulation. recently had developed sepsis and subsequently underwent aortic valve replacement. thereafter developed pericardial effusion and was admitted for pericardiocentesis. continues on norco 7.5mg BID prn. also uses gabapentin. denies adverse med side effects. recently underwent bilateral L4/5 TFESI and bilateral L5/S1 TFESI with >50% improvement in pain and functional ability, VICKIE improved from 42% to 16%. Patient has been able to decrease norco 7.5mg from QID PRN for QD-BID PRN and has stopped baclofen. Patient denies numbness tingling or weakness. pain today 2/10 above his coccyx, increased with standing and walking as well as bending. cc:: CC: Miya Batista NP Review of Systems ROS Status of ROS 10 or more systems reviewed and unremark able except as noted in history and below Musculoskeletal Reports: [facility] Medical History (Updated 12/04/23 @ 15:35 by Miya Batista NP) Hypoxia ?R09.02 - Hypoxemia (ICD-10) Community acquired pneumonia ?J18.9 - Pneumonia, unspecified organism (ICD-10) Febrile illness ?R50.9 - Fever, unspecified (ICD-10) Intractable back pain ?M54.9 - Dorsalgia, unspecified (ICD-10) Chronic lumbosacral pain ?M54.50 - Low back pain, unspecified (ICD-10) ?G89.29 - Other chronic pain (ICD-10) Foot pain ?M79.673 - Pain in unspecified foot (ICD-10) Ankle pain ?M25.579 - Pain in unspecified ankle and joints of unspecified foot (ICD-10) Achilles tendinitis ?M76.60 - Achilles tendinitis, unspecified leg (ICD-10) Plantar fascial fibromatosis ?M72.2 - Plantar fascial fibromatosis (ICD-10) Migraine ?G43.909 - Migraine, unspecified, not intractable, without status migrainosus (ICD-10) GERD (gastroesophageal reflux disease) ?K21.9 - Gastro-esophageal reflux disease without esophagitis (ICD-10) Heartburn ?R12 - Heartburn (ICD-10) High cholesterol ?E78.00 - Pure hypercholesterolemia, unspecified (ICD-10) Calcaneal spur ?M77.30 - Calcaneal spur, unspecified foot (ICD-10) Strain of Achilles tendon ?S86.019A - Strain of unspecified Achilles tendon, initial encounter (ICD-10) Low back pain ?M54.50 - Low back pain, unspecified (ICD-10) Kidney stones ?N20.0 - Calculus of kidney (ICD-10) Sleep apnea ?G47.30 - Sleep apnea, unspecified (ICD-10) Hypertension ?I10 - Essential (primary) hypertension (ICD-10) Surgical History Aortic valve replaced ?Z95.2 - Presence of prosthetic heart valve (ICD-10) History of colonoscopy ?Z98.890 - Other specified postprocedural states (ICD-10) History of foot surgery ?Z98.890 - Other specified postprocedural states (ICD-10) H/O vasectomy (2014) ?Z98.52 - Vasectomy status (ICD-10) H/O shoulder replacement ?Z96.619 - Presence of unspecified artificial shoulder joint (ICD-10) History of carpal tunnel release ?Z98.890 - Other specified postprocedural states (ICD-10) Family History Grandmother Family history of CHF (congestive heart failure) Family history of COPD (chronic obstructive pulmonary disease) Mother Family history of COPD (chronic obstructive pulmonary disease) Family history of cancer Other Family history of lung cancer Social History Within the past year, how often did you have a drink containing alcohol: monthly or less Smoking status: Never smoker Non-prescribed substance use: denies use Previous occupational history: [employer] Highest level of school completed/degree received: some college, no degree Are you now , , , , never or living with a partner: living with partner In a typical week, how many times do you talk on the telephone with family, f riends, or neighbors: 3 or more times per week How often do you get together with friends or relatives: 3 or more times per week How often do you attend christianity or scientologist services: never Do you belong to any clubs or organizations such as christianity groups unions, fraternal or athletic groups, or school groups: no Total score: 2 Score interpretation: A score of greater than or equal to 2 indicates the lowes t level of social isolation. Little interest or pleasure in doing things: not at all Feeling down, depressed, or hopeless: not at all Feel stressed/tense/nervous/anxious/difficulty sleeping: not at all Do you think of yourself as: straight/heterosexual Gender Identity: male Meds Home Medications and Allergies Home Medications ?Medication ?Instructions ?Recorded ?Confirmed ?Type omeprazole 20 mg capsule,delayed 40 mg PO DAILY 01/28/23 11/25/23 History release aspirin 81 mg tablet,delayed 81 mg PO DAILY 02/24/23 11/25/23 History release (Adult Aspirin Regimen) warfarin 5 mg tablet 2.5 mg PO DAILY 09/02/23 11/25/23 History warfarin 5 mg tablet 5 mg PO DAILY 09/02/23 11/25/23 History cholecalciferol (vitamin D3) 50 50 mcg PO DAILY 09/16/23 11/25/23 History mcg (2,000 unit) capsule colchicine 0.6 mg tablet 0.6 mg PO BID 09/16/23 11/25/23 History gabapentin 400 mg capsule 400 mg PO DAILY 09/16/23 11/25/23 History gabapentin 400 mg capsule See Rx Instructions .Route 09/16/23 11/25/23 Rx .COMPLEX #150 caps metoprolol succinate 25 mg capsule 25 mg PO DAILY 09/16/23 11/25/23 History sprinkle, ext. release 24 hr spironolactone 25 mg tablet 12.5 mg PO DAILY 09/16/23 11/25/23 History hydrocodone 7.5 mg-acetaminophen 1 tab PO QID PRN pain #110 tabs 10/16/23 11/25/23 Rx 325 mg tablet hydrocodone 7.5 mg-acetaminophen 1 tab PO QID PRN pain #110 tabs 11/27/23 Rx 325 mg tablet Allergies Allergy/AdvReac Type Severity Reaction Status Date / Time No Known Drug Allergies Allergy Verified 11/25/23 08:41 Exam Constitutional Documenting provider has reviewed patient's vital signs: yes Common normals: no apparent distress, oriented x3, healthy appearing, alert and well nourished General appearance: cooperative HENMT Common normals: normocephalic, hearing grossly normal bilaterally and moist oral mucous membranes Head and scalp: normocephalic Eye Common normals: PERRL Pupil: PERRL Neck & C-Spine Common normals: full ROM General: normal visual inspection Chest Common normals: inspection of chest normal Respiratory Common normals: normal respiratory effort, no retractions and no use of accessory muscles Back & Pelvis Lumbar spine/lower back: normal to inspection, ROM limited and straight leg raise negative bilaterally; no pain with ROM, no lumbar spinal tenderness and no paraspinal muscle tenderness Other: mildly positive facet loading mild pain over L4-S1 facets sensation intact BLE strength 5/5 in BLE Extremity Common normals: normal to inspection and full ROM Neuro Common normals: oriented x3, CN's II-XII intact bilaterally, moves all extremities, no focal motor deficits, no sensory deficits noted, deep tendon reflexes 2+ bilaterally and gait normal Sensorium/orientation: alert Motor exam: strength 5/5 throughout and no movement abnormalities noted Psych Common normals: mental status grossly normal, thought process normal, cooperative, affect normal, speech normal and activity/motor behavior normal Speech: normal speech Thought process: normal thought process Results Additional Findings Additional findings: If on a controlled substance or opioids, I have checked an [place] report on this patient and there are no aberrancies noted in the prescribing history.??If on a controlled substance or opioid a drug screen was completed and reviewed within the last year, and if there has not been a drug screen completed we ordered one today to monitor higher risk, state monitored pain medication use. As part of providing excellent, safe, comprehensive care, the following was completed at our patient's visit: 1. A medication reconciliation and review to ensure accurate knowledge of current/active medications, including asking our patients to inform us about any [id number] medications or herbal remedies/nutritional supplements/altern ative remedies. 2. A review to specifically ensure our patients have had annual screening for screening for depression, screening for tobacco use, and screening for unhealthy alcohol use. For concerning screenings had a discussion with the patient, provided patient education, and recommended follow-up with primary care provider when appropriate. If patient noted with a risk of falling, they received education on strength, gait, and balance training to prevent future risk of falling. Assessment and Plan Assessment and Plan (1) Lumbar pain: Assessment and Plan: VICKIE previously 74%, 52%, 46%, 42% and now 16% and patient back to working (2) Lumbar radiculopathy: (3) Myofascial pain: (4) Lumbar spondylosis: (5) Encounter for long-term opiate analgesic use: Assessment and Plan: I feel these medications are improving the patient's quality of life and allow them to tolerate activities of daily living as well as participate in recreational activity.? The patient does not report intolerable side effects. The patient is NOT opioid naive and non-pharmacologic and non-opioid treatment has failed to significantly relieve the patient's pain and improve functionality. The patient has a diagnosis that is related to a somatic or visceral pain etiology. ? ?? I reviewed with the patient the potential risks and side effects with the use of? opioid medications including but not limited to respiratory depression,? sedation, and even . I verified the patient has access to naloxone should? these effects occur. I advised the patient to avoid the use of any other? sedation substances including alcohol, THC, and benzodiazepines while? taking opioid medications due to the risk of compounding side effects and? detrimental outcomes. I reviewed the [employer], pain treatment agreement, urine? drug screen, and opioid start talking forms. The patient was advised to let? their family know they had Naloxone in case they would need to administer? the medication.? ?? A drug screen was completed within the last year, and no aberrancies were noted regarding their use of controlled substances. The patient understands they are subject to the terms and conditions of the pain contract that they have signed. ? ?? I have checked an [place]AR[place] report on this patient today and there are no aberrancies noted in the prescribing history.? (6) Lumbar stenosis with neurogenic claudication: Plan decrease norco 7.5-325mg BID PRN moderate to severe pain continue gabapentin and baclofen as ordered continue HEP as tolerated f/u 3 months, sooner if needed
== END 2023-12-04 15:07 | disposition home or self-care (01) ==
LOC: PM 15:07
PROVIDERS: PCP Family Medicine; Visit Provider Nurse Practitioner
DX: M54.50 Low back pain, unspecified (principal); M54.16 Radiculopathy, lumbar region; M47.816 Spondylosis without myelopathy or radiculopathy, lumbar region; Z79.891 Long term (current) use of opiate analgesic; M48.062 Spinal stenosis, lumbar region with neurogenic claudication
CPT/HCPCS: G0463

== ENCOUNTER 2023-12-08 13:21 | Emergency (ER) | payer BC, SELFPAY ==
[2023-12-08 13:24] VITALS: BP 138/66; PULSE 86; TEMP 37.3; O2SAT 97; BMI 44.3
--- OUTSIDE RECORDS SUMMARY | 2023-12-08 13:36 | XMS_ITS | CCD ---
Author Organization [facility] Care Team Providers Care Small Business Representative Name Role Phone Pal LOAD TESTER - [facility] Primary Care Provide r [facility] Primary Care Unavailable JUANITA CARMONA Consulting Unavailable JUANITA CARMONA Attending Unavailable JUANITA CARMONA [facility]mitting [facility] Primary Care Provider [facility] Primary Care Physician Unavaila Nicolasa Barrios Unavailable Unavailable [facility] Primary Care Provider DR KINGSLEY HERRERA V Consulting Unavailable YRN, DR ARROYO Attending Unavailable YRN, DR ARROYO Admitting Unavailable TOSHA, DR JAYY Marte Consulting Unavailable YRN, DR ARROYO Consulting Unavailable [facility] Referring Unavailable [facility] Primary Care Unavailable ANH MENA Attending Unavailab ANH Morales Referring Unavailab [facility] Primary Care Unavailable [facility] Primary [...] Care Unavailable ANH MENA Attending Unavailab le PAL, [place] Referring Unavailable ANH MENA Referring Unavailab TARSHA Willson Attending Unavailable [facility] Primary Care Unavailable [facility] Primary Care Unavailable [facility], [place] Referring Unavailable [facility] Primary Care Unavailable [facility], [place] Referring Unavailable Kelly Yi Unavailable Pal, HAIDER [facility] Primary Care Provider HAIDER Yi Attending Provider HAIDER Quezada Attending Provider HAIDER Guerrero Primary Care Provider Siri Quezada Unavailable Vonnie Guerrero Primary Care Physician Kandis Amado Unavailable HAIDER Aguillon [facility] Primary Care Provider HAIDER Yi Attending Provider HAIDER Quezada Attending Provider HAIDER Guerrero Primary Care Provider DO Huan Cowan Attending Provider Katya Harrington Unavailable Unavailable BROWN, HUAN A Referring Unavailable BROWN, HUAN A Attending Unavailable BROWN, HUAN A Attending Unavailable BROWN, HUAN A Referring Unavailable BROWN, HUAN A Attending Unavailable YolandaVonnie wadsworth Attending Unavailable Yung, Huan A Admitting Unavailable Brown, Huan A Attending Unavailable Brown, Huan A Admitting Unavailable Brown, Huan A Attending Unavailable Brown, Huan A Admitting Unavailable Brown, Huan A Attending Unavailable YolandaVonnie wadsworth L Attending Unavailable [facility] Primary Care Unavailable Joel Bledsoe Attending Unavailable Joel Bledsoe Admitting Unavailable Joel Bledsoe L Admitting Unavailable CHANDRAKANT BERNAL Primary Care Unavailable POLY KAUR Attending Unavailable Siri Quezada Admitting Unavailable Yolanda, Vonnie Moran Primary Care Unavailable Siri Quezada Attending Unavailable Damien, Siri Admitting Unavailable Yolanda, Vonnie Moran Primary Care Unavailable Damien, Siri Attending Unavailable Damien, Siri Admitting Unavailable [facility] Unavailabl e Quezada, Siri Attending Unavailable Huan Cowan Attending Unavailable Huan Cowan Admitting Unavailable Kelly Yi Attending Unavailable Kelly Yi Admitting Unavailable [facility] Unavailabl e GEORGE, PAUL Admitting Unavailable GEORGE, PAUL Attending Unavailable CHANDRAKANT BERNAL Referring Unavailable CANDICE, Referring Unavailable CANDICE, Referring Unavailable GEORGE, PAUL Referring Unavailable ISAIAS DEMPSEY Referring Unavailabl e CANDICE, Referring Unavailable KUISAIAS DOHERTY Referring Unavailabl e GEORGE, PAUL Admitting Unavailable GEORGE, PAUL Attending Unavailable DREW THORPE Referring Unavailable CANDICE, Referring Unavailable ISAIAS DEMPSEY Referring Unavailabl e GEORGE, PAUL Referring Unavailable OVITT, NINFA Referring Unavailable CANDICE, Referring Unavailable MERZA NOORALDIN Referring Unavailable GEORGE, PAUL Referring Unavailable CANDICE, Referring Unavailable GEORGE, PAUL Referring Unavailable ISAIAS DEMPSEY Referring Unavailabl e KULAKOISAIAS MCKEON Referring Unavailabl e KO KOCHAR Referring Unavailable OVITT, NINFA Referring Unavailable GEORGE, PAUL Referring Unavailable GEORGE, PAUL Referring Unavailable CANDICE, MAI Referring Unavailable ISAIAS DEMPSEY Referring Unavailabl e KUISAIAS DOHERTY Referring Unavailabl e ELTARADHA, KENDALL Attending Unavailable ELPROSPERHAWLuz Elena, EHAB Attending Unavailable ISAIAS DEMPSEY Attending Unavailabl e ANNABELLA CHEN Attending Unavailable CARLEEN MONTALVO Attending Unavailable OVITT, NINFA Attending Unavailable CANDICE, Attending Unavailable ELTAHAWY, EHAB Attending Unavailable GUSTAVOANNABELLA GUO Attending Unavailable GEORGE, PAUL Referring Unavailable RUPERT ANGELES Attending Unavailable ISAIAS DEMPSEY Referring Unavailabl e KUISAIAS DOHERTY Referring Unavailabl e KUISAIAS DOHERTY Referring Unavailabl e KUISAIAS DOHERTY J Referring Unavailabl e KUCHAS, ISAIAS Herbert Referring Unavailabl e CANDICE, Referring Unavailable CANDICE, Referring Unavailable ROSELYN, ISAIAS Herbert Referring Unavailabl e ROSELYN, ISAIAS Herbert Referring Unavailabl e KUCHAS, ISAIAS Herbert Referring Unavailabl e Giedraitis , Brenton Reid Attending Unavailable Giedraitis , Andgorge Reid Attending Unavailable Giedraitis , Andrius Reid Attending Unavailable Giedraitis , Andrius Franklin Attending Unavailable Giedraitis , Andrius Franklin Attending Unavailable Giedraitis , Andrius Reid Attending Unavailable Allergies Allergy Classification Reported Allergen(s) Allergy Type Date of Onset Reaction(s) Facility Unclassified (1 source) No Known Medication Allergies; Translations: [No Known Medication Allergies] Propensity to adverse reactions to drug (disorder) [facility] Repository (1 source) atorvastatin; Translations: [ATORVASTATIN] Drug Allergy [facility] Repository Medications Current Medications Medication [...] Platelet Aggregation Inhibitor, Nonsteroidal Anti-inflammatory Drug Start: take 1 tablet by mouth once daily [...] day(s), # 9 cap(s), Refills(s) 0, Pharmacy: [facility], 185.5, cm, 08/08/21 12:06:00 EDT, [...] constipation, # 20 cap(s), Refills(s) 0, Pharmacy: [facility] #37, 185.5, cm, 08/08/21 12:06:00 EDT, Height/Length [...] milk, # 60 tab(s), Refills(s) 0, Pharmacy: [facility] #37, 185.5, cm, 08/08/21 12:06:00 EDT, Height/Length [...] Daily, # 90 tab(s), Refills(s) 3, Pharmacy: [facility]/pharmacy #[id number], 185.5, cm, 01/09/23 16:37:00 [...] 03-23-2017 take 1 capsule by [facility] once daily Prilosec 20 mg Cap - DR 20 mg, Oral, Daily, Refills(s) 0 Start Date: 03/23/17 Status: Ordered Start: 2016 take 1 capsule by [facility] once daily Omeprazole 40 mg capsule Indications: Gastroesophageal reflux disease, esophagitis presence not specified Take 1 capsule by mouth once daily. 30 capsule 11 2016 Active take 1 tablet by [facility] once daily PriLOSEC OTC 20 MG 1 tablet 30 minutes before morning meal Orally Once a day Active End: 07-25-2021 Omeprazole Magnesium (PRILOS EC OTC) 20 mg tablet 2 tablet 0 07/25/2021 Discontinued (Discontinued by Patient) Comment on above: Take 1 capsule by [facility] once daily. 2 tablet ondansetron (ZOFRAN-ODT) [...] Starting 08/01/20 at 2358 polyethylene glycol 3350 97629 mg powder for oral solution (1 source) Osmotic Laxative Start: 08-01-2020 17 g, Oral, D AILY PRN, Constipation, Starting 08/01/20 at 2358 First line therapy for constipation predniSONE 10 mg oral tablet (5 sources) Start: 06-11-2023 Prednisone Act chi 10 MG PO June 11, 2023 12:00am Start: 12-16-2022 take 1 tablet by tori th every [...] tab(s), Refill(s) 0, 1-2 tab(s) Oral q4hr, [facility], 185.5, cm, 08/08/21 12:06:00 EDT, [...] autopap titration study. Please fax results to [phone]. DX: JACOBY G47.33 1 Each 0 11/08/2016 09/13/2020 Discontinued Comment on above: Please perform autop ap titration study. Please fax results to [phone]. DX: JACOBY G47.33 doxepin hydrochloride 10 mg [...] above: Take 2 tablets by [facility] daily with dinner. 1 ml morphine [...] 10 mL injection (DEFINITY) polyethylene glycol 3350 710824 mg / potassium chloride 2970 mg / sodium bicarbonate 6740 mg / sodium chloride 5860 mg / sodium sulfate 00187 mg powder for oral solution (14 sources) [...] disease (2 sources) Atherosclerotic heart disease of teller coronary artery without angina pectoris; Translations: [Atherosclerotic heart disease of teller coronary artery without angina pectoris] Onset: 4 [...] of 50.0-59.9, adult ([facility])] Onset: 0 Chronic Other nutritional; endocrine; and metabolic disorders (4 sources) Body mass index (BMI) 50.0-59.9, adult; Translations: [Morbid obesity with BMI of 50.0-59.9, adult ([facility])] Onset: 0 Chronic Other nutritional; endocrine; [...] Reference Range Facility 36on 11-12-2023 36 Normal [facility] 36on 10-07-2023 36 Normal [facility] Follow-Upon 10-07-2023 Follow-Up Normal [facility] Orders Onlyon 10-07-2023 Orders Only Normal [facility] Telephoneon 10-07-2023 Telephone Normal [facility] ED Clinical Summaryon 2023 ED Clinical Summary [facility] ? 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 Arrival: 09/26/2023 09:05:07 Discharge: 09/26/2023 10:39:00 LOS: 000 01:34 Check In: 09/26/2023 09:05:07 Checkout: 09/26/2023 10:39:00 Address: [address] [place] [address] PCP: CHANDRAKANT BERNAL PROVIDER INFORMATION Provider Role [...] Instructions: Follow-Up: With: Address: When: CHANDRAKANT BERNAL [address] [place] [address], [place] [place] [address] Business (1) , only if needed DIAGNOSIS: Physical exam Patient Understands: Yes - Patient/family/caregiver verbalizes understanding of instructions given Comment: Normal [facility] ED Patient Summaryon 024 ED Patient Summary [facility] ? Urgent Care [address] [place], [place] [id number] PATIENT DISCHARGE INSTRUCTIONS Patient Information Name: NEHAL BAIG Age: 52 Years Date of : 1970 Reason For Visit: Medical screening exam; DOT PHYSICAL Arrival Time: 09/26/2023 09:05:07 Primary Care Physician: CHANDRAKANT BERNAL Attending Physician: Joel Blesdoe PA-C Comment: Patient Education With: Address: When: CHANDRAKANT BERNAL [facility] [place] [address] Business (1) , only if needed Medication Information: The exam and treatment you received today in the [facility] Emergency Department were for an urgent problem and are not intended as complete care. It is important for you to follow up with a doctor, nurse practitioner, or physician?s emergency medicine physician assistant for ongoing care. If your symptoms [...] can reach you if necessary. [facility] Emergency Department has provided you with a complete list of medications post discharge. 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 POCT Glucose Levelon 024 Glucose [Mass/Vol] 112 mg/dL Normal 74-118 [facility] Comment on above: Result Comment: OPR_ ID=[email or web address],TGC FLAG = False,Meter:[id number] [employer] Teacher:Remy Montes Performed By: #### 4 [id number] ####[facility] (DEFAULT)[address] [place] [address] UA Standardon 09-26-2023 Breakpoint UA [facility] Comment on above: Performed By: #### 1 [id number] #### [facility] (DEFAULT) [address] [place] [address] Color (U) Yellow [facility] Comment on above: Performed By: #### 1 [id number] #### [facility] (DEFAULT) [address] [place] [address] Glucose (U) [Mass/Vol] mg/dL [facility] Comment on above: Performed By: #### 1 [id number] #### [facility] (DEFAULT) [address] [place] [address] Ketones Ql (U) TRACE Normal [facility] Comment on above: Performed By: #### 1 [id number] #### [facility] (DEFAULT) [address] [place] [address] UA Bilirubin Negative Normal [facility] Comment on above: Performed By: #### 1 [id number] #### [facility] (DEFAULT) [address] [place] [address] UA Blood Negative Normal NEGATIVE [facility] Comment on above: Performed By: #### 1 [id number] #### [facility] (DEFAULT) [address] [place] [address] UA Clarity CLEAR Normal CLEAR [facility] Comment on above: Performed By: #### 1 [id number] #### [facility] (DEFAULT) [address] [place] [address]213 UA Leuk Est Negative Normal NEGATIVE [facility] Comment on above: Performed By: #### 1 [id number] #### [facility] (DEFAULT) [address] [place] [address]181 UA Nitrite Negative Normal NEGATIVE [facility] Comment on above: Performed By: #### 1 [id number] #### [facility] (DEFAULT) [address] [place] [address]9816 UA pH 6.0 Normal 5-8 [facility] Comment on above: Performed By: #### 1 [id number] #### [facility] (DEFAULT) [address] [place] [address]21 UA Protein 100 Abnormal NEGATIVE [facility] Comment on above: Performed By: #### 1 [id number] #### [facility] (DEFAULT) [address] [place] [address] UA Spec Grav >=1.030 Normal 1.001-1.035 [facility] Comment on above: Performed By: #### 1 [id number] #### [facility] (DEFAULT) [address] [place] [address] UA Urobilinogen 0.2 mg/dL Normal 0.2-1.0 [facility] Comment on above: Performed By: #### 1 [id number] #### [facility] (DEFAULT) [address] [place] [address] Urine Source Clean Catch Normal [facility] Comment on above: Performed By: #### 1 [id number] #### [facility] (DEFAULT) [address] [place] [address] Urgent Care Note- Provideron 09-26-2023 Urgent Care [...] history): All Problems Hypertension / SNOMED CT 0192226913 / Confirmed GERD (gastroesophageal reflux disease) / SNOMED CT 237832802 / Confirmed Diabetes / SNOMED CT 292257664 / Confirmed Objective CONST: -Obese -Acute distress: [...] Plan Assessment and Plan: Diagnosis: Physical exam (ZHQ67-OR Z00.00). Orders Orders Patient Care: Glucose POC [...] 4 months ago. He states that his lawn mower told him he is okay to return to work but does not have any paperwork from the lawn mower stating that he is okay to drive. Patient also shows a echocardiogram from 1 week ago that shows an ejection fraction of 35%. Patient's recent INR's are not in range of 2.5-3.5 which is required by mechanical heart valve. I discussed this with him indicated that he will need a letter releasing him stating he is okay to drive from his lawn mower, I indicated that he needs an echocardiogram [...] [Verified on: 09/26/2023 11:04 EDT] POLY KAUR [facility] Urgent Care [place] 024 Urgent Care Record [facility] ? Urgent Care [address] [place] [address] PATIENT DISCHARGE INSTRUCTIONS Patient Information Name: NEHAL BAIG Age: 52 Years Date of : 1970 [facility]: [id number] Reason For Visit: DOT PHYSICAL Arrival Time: [...] legal documents With: Address: When: CHANDRAKANT BERNAL [address] [place] [address] Business () , only if needed Medication Information: The [facility] were for an urgent problem and are not intended as complete care. It is important for you to follow up with a doctor, nurse practitioner, or physician?s emergency medicine physician assistant for ongoing care. If your symptoms [...] can reach you if necessary. [facility] Urgent Care has provided you with a complete list of medications post discharge. 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 coremaking machine operator/provider of your visit and for [...] for Disease Control and Prevention November 2013 [facility] Abstracton 09-20-2023 Abstract Normal [facility] Follow-Upon 09-19-2023 Follow-Up Normal [facility] 30on 09-06-2023 30 Normal [facility] 30 Normal [facility] BASIC METABOLIC PANELon Anion gap [Moles/Vol] 13 mmol/L Normal 10-18 [facility] Comment on above: Performed By: #### L [id number] ####[facility] (BEAKER)[address] [place] [address] Calcium [Mass/Vol] 9.8 mg/dL Normal 8.6-10.3 [facility] Comment on above: Performed By: #### L [id number] ####[facility] ([facility])[address] [place] [address] Chloride [Moles/Vol] 97 mmol/L Low 98-107 [facility] Comment on above: Performed By: #### L AB15 ####[facility] ([facility])[address] [place] [address] CO2 [Moles/Vol] 31 mmol/L Normal 21-31 [facility] Comment on above: Performed By: #### L AB15 ####[facility] ([facility])[address] [facility] [address] Creatinine [Mass/Vol] 1.03 mg/dL Normal 0.70-1.30 [facility] Comment on above: Performed By: #### L AB15 ####[facility] ([facility])[address] [place] [address] GLOMERULAR FILTRATION RATE ML/MIN/1.73 SQ M.PREDICTED 88.5 mL/min/1.73m*2 Normal >60.0 [facility] Comment on above: Result Comment: The [facility]???s estimated glomerular filtration rate (eGFR) [...] of individuals. Performed By: #### L AB15 ####[facility] ([facility])[address] [place] [address] Glucose [Mass/Vol] 140 mg/dL High 70-100 [facility] Comment on above: Performed By: #### L [id number] ####[facility] (BE[facility]ER)[address] [place] [address] Potassium [Moles/Vol] 4.6 mmol/L Normal 3.5-5.1 [facility] Comment on above: Performed By: #### L [id number] ####[facility] (BEAKER)[address] [place] [address] Sodium [Moles/Vol] 136 mmol/L Normal 136-145 [facility] Comment on above: Performed By: #### L [id number] ####[facility] (BE[facility]ER)[address] [place] [address] Urea nitrogen [Mass/Vol] 17 mg/dL Normal 7-25 [facility] Comment on above: Performed By: #### L [id number] ####[facility] ([facility]ER)[address] [place] [address] UREA NITROGEN/CREATININE (MASS RATIO) IN SER/PLAS 16.5 Normal [facility] Comment on above: Performed By: #### L [id number] ####[facility] (BEAKER)[address] [place] [address] CBCon 09-06-2023 Erythrocyte distribution width (RBC) [Ratio] 15.3 % High 11.5-15.0 [facility] Comment on above: Performed By: #### L [id number] ####[facility] ([facility]ER)[address] [place] [address] ERYTHROCYTE MEAN CORPUSCULAR HEMOGLOBIN CONCENTRATION (G/DL) BY AUTOMATED 29.9 g/dL Low 32.0-35.0 [facility] Comment on above: Performed By: #### L [id number] ####[facility] (BEAKER)[address] [place] [address] Hematocrit (Bld) [Volume fraction] 40.1 % Normal 39.0-55.0 [facility] Comment on above: Performed By: #### L [id number] ####[facility] (BEAKER)[address] [place] [address] Hemoglobin (Bld) [Mass/Vol] 12.0 g/dL Low 13.0-17.0 [facility] Comment on above: Performed By: #### L [id number] ####[facility] ([facility])[address] [place] [address] MCH (RBC) [Entitic mass] 23.9 pg Low 27.0-33.0 [facility] Comment on above: Performed By: #### L [id number] ####[facility] ([facility])[address] [place] [address] MCV (RBC) [Entitic vol] 79.7 fL Low 82.0-98.0 [facility] Comment on above: Performed By: #### L [id number] ####[facility] ([facility])[address] [place] [address] PLATELETS (10*3/UL) IN BLOOD AUTOMATED COUNT 273 10*3/uL Normal 150-400 [facility] Comment on above: Performed By: #### L [id number] ####[facility] ([facility])[address] [place] [address] RBC (Bld) [#/Vol] 5.03 10*6/uL Normal 4.20-5.70 [facility] Comment on above: Performed By: #### L [id number] ####[facility] ([facility])[address] [place] [address] WBC (Bld) [#/Vol] 6.25 10*3/uL Normal 4.00-10.60 [facility] Comment on above: Performed By: #### L [id number] ####[facility] ([facility] [place] [address] DSon 09-06-2023 DS Normal [facility] MAGNESIUMon 09-06-2023 Magnesium [Mass/Vol] 2.1 mg/dL Normal 1.9-2.7 [facility] Comment on above: Performed By: #### L [id number] ####[facility] ([facility] [place] [address] PHOSPHORUSon 09-06-2023 Magnesium [Mass/Vol] 5.0 mg/dL Normal 2.5-5.0 [facility] Comment on above: Performed By: #### L [id number] ####[facility] ([facility]ER)[address] [place] [address] PROTIME-INRon 09-06-2023 INR IN PPP BY COAGULATION ASSAY 1.58 High 0.90-1.10 [facility] Comment on above: Result Comment: [...] CHEST 1995;108:231S-246S. Performed By: #### L [id number] ####[facility] ([facility]ER)[address] [place] [address] PROTHROMBIN TIME (PT) IN PPP BY COAGULATION ASSAY 18.7 Seconds High 12.3-14.8 [facility] Comment on above: Performed By: #### L [id number] ####[facility] ([facility])[address] [place] [address] 30on 09-05-2023 30 Normal [facility] 30 Normal [facility] BASIC METABOLIC PANELon 06- Anion gap [Moles/Vol] 12 mmol/L Normal 7-20 [facility] Comment on above: Performed By: #### L AB15 ####[facility] ([facility] [place] [address] Calcium [Mass/Vol] 9.5 mg/dL Normal 8.6-10.3 [facility] Comment on above: Performed By: #### L AB15 ####[facility] [place] [address] Chloride [Moles/Vol] 96 mmol/L Low 98-107 [facility] Comment on above: Performed By: #### L AB15 ####[facility] ([facility])[address] [place] [address] CO2 [Moles/Vol] 32 mmol/L High 21-31 [facility] Comment on above: Performed By: #### L AB15 ####[facility] ([facility])[address] [place] [address] Creatinine [Mass/Vol] 0.96 mg/dL Normal 0.70-1.30 [facility] Comment on above: Performed By: #### L [id number] ####[facility] ([facility])[address] [place] [address] GLOMERULAR FILTRATION RATE ML/MIN/1.73 SQ M.PREDICTED 96.3 mL/min/1.73m*2 Normal >60.0 [facility] Comment on above: Result Comment: [facility]???s estimated glomerular filtration rate (eGFR) [...] of individuals. Performed By: #### L [id number] ####[facility] ([facility] [place] [address] Glucose [Mass/Vol] 102 mg/dL High 70-100 [facility] Comment on above: Performed By: #### L [id number] ####[facility] ([facility])[address] [place] [address] Potassium [Moles/Vol] 4.6 mmol/L Normal 3.5-5.1 [facility] Comment on above: Performed By: #### L [id number] ####[facility] ([facility])[address] [place] [address] Sodium [Moles/Vol] 135 mmol/L Low 136-145 [facility] Comment on above: Performed By: #### L [id number] ####[facility] ([facility])[address] [place] [address] Urea nitrogen [Mass/Vol] 15 mg/dL Normal 7-25 [facility] Comment on above: Performed By: #### L [id number] ####[facility] ([facility])[address] [place] [address] UREA NITROGEN/CREATININE (MASS RATIO) IN SER/PLAS 15.6 Normal [facility] Comment on above: Performed By: #### L [id number] ####[facility] ([facility])[address] [place] [address] CBCon 09-05-2023 Erythrocyte distribution width (RBC) [Ratio] 15.5 % High 11.5-15.0 [facility] Comment on above: Performed By: #### L [id number] ####[facility] ([facility])[address] [place] [address] ERYTHROCYTE MEAN CORPUSCULAR HEMOGLOBIN CONCENTRATION (G/DL) BY AUTOMATED 30.5 g/dL Low 32.0-35.0 [facility] Comment on above: Performed By: #### L [id number] ####[facility] ([facility])[address] [place] [address] Hematocrit (Bld) [Volume fraction] 38.0 % Low 39.0-55.0 [facility] Comment on above: Performed By: #### L [id number] ####[facility] ([facility])[address] [place] [address] Hemoglobin (Bld) [Mass/Vol] 11.6 g/dL Low 13.0-17.0 [facility] Comment on above: Performed By: #### L [id number] ####[facility] ([facility])[address] [place] [address] MCH (RBC) [Entitic mass] 23.9 pg Low 27.0-33.0 [facility] Comment on above: Performed By: #### L [id number] ####[facility] ([facility])[address] [place] [address] MCV (RBC) [Entitic vol] 78.4 fL Low 82.0-98.0 [facility] Comment on above: Performed By: #### L [id number] ####[facility] ([facility])[address] [place] [address] PLATELETS (10*3/UL) IN BLOOD AUTOMATED COUNT 247 10*3/uL Normal 150-400 [facility] Comment on above: Performed By: #### L [id number] ####[facility] ([facility])[address] [place] [address] RBC (Bld) [#/Vol] 4.85 10*6/uL Normal 4.20-5.70 [facility] Comment on above: Performed By: #### L [id number] ####[facility] ([facility])[address] [place] [address] WBC (Bld) [#/Vol] 6.30 10*3/uL Normal 4.00-10.60 [facility] Comment on above: Performed By: #### L [id number] ####[facility] ([facility])[address] [place] [address] MAGNESIUMon 09-05-2023 Magnesium [Mass/Vol] 2.0 mg/dL Normal 1.9-2.7 [facility] Comment on above: Performed By: #### L [id number] ####[facility] ([employer])[address] [place] [address] PHOSPHORUSon 09-05-2023 Magnesium [Mass/Vol] 5.2 mg/dL High 2.5-5.0 [facility] Comment on above: Performed By: #### L [id number] ####[facility] ([facility])[address] [place] [address] PROTIME-INRon 09-05-2023 INR IN PPP BY COAGULATION ASSAY 1.64 High 0.90-1.10 [facility] Comment on above: Result Comment: [...] CHEST 1995;108:231S-246S. Performed By: #### L [id number] ####[facility] ([employer])[address] [place] [address] PROTHROMBIN TIME (PT) IN PPP BY COAGULATION ASSAY 19.2 Seconds High 12.3-14.8 [facility] Comment on above: Performed By: #### L [id number] ####[facility] ([facility])[address] [place] [address] 30on 09-04-2023 30 Normal [facility] 30 Normal [facility] BASIC METABOLIC PANELon 06-0 Anion gap [Moles/Vol] 12 mmol/L Normal 7-20 [facility] Comment on above: Performed By: #### L [id number] ####[facility] ([facility])[address] [place] [address] Calcium [Mass/Vol] 9.1 mg/dL Normal 8.6-10.3 [facility] Comment on above: Performed By: #### L [id number] ####[facility] ([facility])[address] [place] [address] Chloride [Moles/Vol] 96 mmol/L Low 98-107 [facility] Comment on above: Performed By: #### L [id number] ####[facility] ([facility])[address] [place] [address] CO2 [Moles/Vol] 30 mmol/L Normal 21-31 [facility] Comment on above: Performed By: #### L [id number] ####[facility] ([facility])[address] [place] [address] Creatinine [Mass/Vol] 0.88 mg/dL Normal 0.70-1.30 [facility] Comment on above: Performed By: #### L [id number] ####[facility] ([facility])[address] [place] [address] GLOMERULAR FILTRATION RATE ML/MIN/1.73 SQ M.PREDICTED 104.8 mL/min/1.73m*2 Normal >60.0 [facility] Comment on above: Result Comment: [facility]???s estimated glomerular filtration rate (eGFR) [...] of individuals. Performed By: #### L [id number] ####[facility] ([facility])[address] [place] [address] Glucose [Mass/Vol] 93 mg/dL Normal 70-100 [facility] Comment on above: Performed By: #### L [id number] ####[facility] ([facility])[address] [place] [address] Potassium [Moles/Vol] 4.0 mmol/L Normal 3.5-5.1 [facility] Comment on above: Performed By: #### L [id number] ####[facility] ([facility])[address] [place] [address] Sodium [Moles/Vol] 134 mmol/L Low 136-145 [facility] Comment on above: Performed By: #### L [id number] ####[facility] ([facility])[address] [place] [address] Urea nitrogen [Mass/Vol] 16 mg/dL Normal 7-25 [facility] Comment on above: Performed By: #### L [id number] ####[facility] ([facility])[address] [place] [address] UREA NITROGEN/CREATININE (MASS RATIO) IN SER/PLAS 18.2 Normal [facility] Comment on above: Performed By: #### L [id number] ####[facility] ([facility])[address] [place] [address] CBCon 09-04-2023 Erythrocyte distribution width (RBC) [Ratio] 15.7 % High 11.5-15.0 [facility] Comment on above: Performed By: #### L [id number] ####[facility] ([facility])[address] [place] [address] ERYTHROCYTE MEAN CORPUSCULAR HEMOGLOBIN CONCENTRATION (G/DL) BY AUTOMATED 31.0 g/dL Low 32.0-35.0 [facility] Comment on above: Performed By: #### L [id number] ####[facility] ([facility])[address] [place] [address] Hematocrit (Bld) [Volume fraction] 34.5 % Low 39.0-55.0 [facility] Comment on above: Performed By: #### L [id number] ####[facility] ([facility] [place] [address] Hemoglobin (Bld) [Mass/Vol] 10.7 g/dL Low 13.0-17.0 [facility] Comment on above: Performed By: #### L [id number] ####[facility] ([facility])[address] [place] [address] MCH (RBC) [Entitic mass] 24.4 pg Low 27.0-33.0 [facility] Comment on above: Performed By: #### L [id number] ####[facility] ([facility])[address] [place] [address] MCV (RBC) [Entitic vol] 78.8 fL Low 82.0-98.0 [facility] Comment on above: Performed By: #### L [id number] ####[facility] ([facility])[address] [place] [address] PLATELETS (10*3/UL) IN BLOOD AUTOMATED COUNT 221 10*3/uL Normal 150-400 [facility] Comment on above: Performed By: #### L [id number] ####[facility] ([facility])[address] [place] [address] RBC (Bld) [#/Vol] 4.38 10*6/uL Normal 4.20-5.70 [facility] Comment on above: Performed By: #### L [id number] ####[facility] ([facility])[address] [place] [address] WBC (Bld) [#/Vol] 9.37 10*3/uL Normal 4.00-10.60 [facility] Comment on above: Performed By: #### L [id number] ####[facility] ([facility])[address] [place] [address] MAGNESIUMon 06-05-2024 Magnesium [Mass/Vol] 1.8 mg/dL Low 1.9-2.7 [facility] Comment on above: Performed By: #### L [id number] ####[facility] ([facility])[address] [place] [address] PHOSPHORUSon 09-04-2023 Magnesium [Mass/Vol] 4.4 mg/dL Normal 2.5-5.0 [facility] Comment on above: Performed By: #### L [id number] ####[facility] ([facility])[address] [place] [address] PROTIME-INRon 09-04-2023 INR IN PPP BY COAGULATION ASSAY 1.60 High 0.90-1.10 [facility] Comment on above: Result Comment: [...] CHEST 1995;108:231S-246S. Performed By: #### L [id number] ####[facility] ([facility])[address] [place] [address] PROTHROMBIN TIME (PT) IN PPP BY COAGULATION ASSAY 18.8 Seconds High 12.3-14.8 [facility] Comment on above: Performed By: #### L [id number] ####[facility] ([facility] [place] [address] 30on 09-03-2023 30 Normal [facility] 30 Normal [facility] ANESon 09-03-2023 ANES Normal [facility] APTTon 09-03-2023 ACTIVATED PARTIAL THROMBOPLASTIN TIME IN PPP BY COAGULATION ASSAY 32.6 Seconds Normal 25.0-35.0 [facility] Comment on above: Result Comment: Clin ical significance of the APTT is questionable in the presence of heparin. Performed By: #### L [id number] ####[facility] ([facility])[address] [place] [address] BASIC METABOLIC PANELon Anion gap [Moles/Vol] 11 mmol/L Normal 7-20 [facility] Comment on above: Performed By: #### L [id number] ####[facility] ([facility])[address] [place] [address] Calcium [Mass/Vol] 9.2 mg/dL Normal 8.6-10.3 [facility] Comment on above: Performed By: #### L [id number] ####[facility] ([facility])[address] [place] [address] Chloride [Moles/Vol] 100 mmol/L Normal 98-107 [facility] Comment on above: Performed By: #### L [id number] ####[facility] ([facility])[address] [place] [address] CO2 [Moles/Vol] 29 mmol/L Normal 21-31 [facility] Comment on above: Performed By: #### L [id number] ####[facility] ([facility])[address] [place] [address] Creatinine [Mass/Vol] 1.11 mg/dL Normal 0.70-1.30 [facility] Comment on above: Performed By: #### L [id number] ####[facility] ([facility])[address] [place] [address] GLOMERULAR FILTRATION RATE ML/MIN/1.73 SQ M.PREDICTED 80.9 mL/min/1.73m*2 Normal >60.0 [facility] Comment on above: Result Comment: [facility]???s estimated glomerular filtration rate (eGFR) [...] of individuals. Performed By: #### L [id number] ####[facility] ([facility])[address] [place] [address] Glucose [Mass/Vol] 119 mg/dL High 70-100 [facility] Comment on above: Performed By: #### L [id number] ####[facility] ([facility])[address] [place] [address] Potassium [Moles/Vol] 4.3 mmol/L Normal 3.5-5.1 [facility] Comment on above: Performed By: #### L [id number] ####[facility] ([facility])[address] [place] [address] Sodium [Moles/Vol] 136 mmol/L Normal 136-145 [facility] Comment on above: Performed By: #### L [id number] ####[facility] ([facility])[address] [place] [address] Urea nitrogen [Mass/Vol] 22 mg/dL Normal 7-25 [facility] Comment on above: Performed By: #### L [id number] ####[facility] ([facility])[address] [place] [address] UREA NITROGEN/CREATININE (MASS RATIO) IN SER/PLAS 19.8 Normal [facility] Comment on above: Performed By: #### L [id number] ####[facility] ([facility])[address] [place] [address] Anion gap [Moles/Vol] 11 mmol/L Normal 7-20 [facility] Comment on above: Performed By: #### L [id number] ####[facility] ([facility] [place] [address] Calcium [Mass/Vol] 9.1 mg/dL Normal 8.6-10.3 [facility] Comment on above: Performed By: #### L [id number] ####[facility] ([facility] [place] [address] Chloride [Moles/Vol] 98 mmol/L Normal 98-107 [facility] Comment on above: Performed By: #### L [id number] ####[facility] ([facility])[address] [place] [address] CO2 [Moles/Vol] 30 mmol/L Normal 21-31 [facility] Comment on above: Performed By: #### L [id number] ####[facility] ([facility])[address] [place] [address] Creatinine [Mass/Vol] 1.25 mg/dL Normal 0.70-1.30 [facility] Comment on above: Performed By: #### L [id number] ####[facility] ([facility])[address] [place] [address] GLOMERULAR FILTRATION RATE ML/MIN/1.73 SQ M.PREDICTED 70.2 mL/min/1.73m*2 Normal >60.0 [facility] Comment on above: Result Comment: [facility]???s estimated glomerular filtration rate (eGFR) [...] of individuals. Performed By: #### L [id number] ####[facility] ([facility])[address] [place] [address] Glucose [Mass/Vol] 105 mg/dL High 70-100 [facility] Comment on above: Performed By: #### L [id number] ####[facility] ([facility])[address] [place] [address] Potassium [Moles/Vol] 4.2 mmol/L Normal 3.5-5.1 [facility] Comment on above: Performed By: #### L [id number] ####[facility] ([facility])[address] [place] [address] Sodium [Moles/Vol] 135 mmol/L Low 136-145 [facility] Comment on above: Performed By: #### L [id number] ####[facility] ([facility])[address] [place] [address] Urea nitrogen [Mass/Vol] 22 mg/dL Normal 7-25 [facility] Comment on above: Performed By: #### L [id number] ####[facility] ([facility])[address] [place] [address] UREA NITROGEN/CREATININE (MASS RATIO) IN SER/PLAS 17.6 [facility] Comment on above: Performed By: #### L [id number] ####[facility] ([facility])[address] [place] [address] BLOOD CULTUREon 09-03-2023 Bacteria identified Cx Nom (Bld) No growth at 5 days Normal [facility] Comment on above: Order Comment: From a different site than #1. Performed By: #### L [id number] ####[facility] ([facility] [place] [address] Order Comment: Place d Back on Insturment BODY FLUID CELL DIFFERENTIAL on 09-03-2023 BASOPHILS TOTAL PER COUNTED LEUKOCYTES IN BODY FLUID BY MANUAL COUNT 2 Normal [facility] Comment on above: Order Comment: Diffe rential performed on cytospin Performed By: #### L [id number] ####[facility] ([facility])[address] [place] [address] CELLS COUNTED TOTAL (#) IN BODY FLUID 100 [facility] Comment on above: Order Comment: Diffe rential performed on cytospin Performed By: #### L [id number] ####[facility] ([facility])[address] [place] [address] EOSINOPHILS TOTAL PER COUNTED LEUKOCYTES IN BODY FLUID BY MANUAL COUNT 3 [facility] Comment on above: Order Comment: Diffe rential performed on cytospin Performed By: #### L [id number] ####[facility] ([facility])[address] [place] [address] LYMPHOCYTES TOTAL PER COUNTED LEUKOCYTES IN BODY FLUID BY MANUAL COUNT 53 [facility] Comment on above: Order Comment: Diffe rential performed on cytospin Performed By: #### L [id number] ####[facility] ([facility])[address] [place] [address] MESOTHELIAL CELLS TOTAL PER COUNTED LEUKOCYTES IN BODY FLUID BY MANUAL COUN 1 [facility] Comment on above: Order Comment: Diffe rential performed on cytospin Performed By: #### L [id number] ####[facility] ([facility])[address] [place] [address] MONOCYTES+MACROPHAGE S TOTAL PER COUNTED LEUKOCYTES IN BODY FLUID BY MANUAL 0 [facility] Comment on above: Order Comment: Diffe rential performed on cytospin Performed By: #### L [id number] ####[facility] ([facility])[address] [place] [address] NEUTROPHILS TOTAL PER COUNTED LEUKOCYTES IN BODY FLUID BY MANUAL COUNT 41 [facility] Comment on above: Order Comment: Diffe rential performed on cytospin Performed By: #### L [id number] ####[facility] ([facility])[address] [place] [address] OTHER CELLS BODY FLUID (MANUAL) 0 [facility] Comment on above: Order Comment: Diffe rential performed on cytospin Performed By: #### L [id number] ####[facility] ([facility])[address] [place] [address] BODY FLUID CULTUREon 024 Bacteria identified Cx Nom (Unsp spec) No growth at 5 days Normal [facility] Comment on above: Performed By: #### L [id number] ####[facility] ([facility] [place] [address] GRAM STAIN RESULT Normal [facility] Comment on above: Result Comment: Poly morphonuclear leukocytesNo organisms seen Performed By: #### L [id number] ####[facility] ([facility] [place] [address] C-REACTIVE PROTEINon 024 C REACTIVE PROTEIN (MG/L) IN SER/PLAS 20.7 mg/L High 0.0-7.0 [facility] Comment on above: Performed By: #### L [id number] ####[facility] ([facility])[address] [place] [address] CBCon 09-03-2023 Erythrocyte distribution width (RBC) [Ratio] 15.4 % High 11.5-15.0 [facility] Comment on above: Performed By: #### L [id number] ####[facility] ([facility])[address] [place] [address] ERYTHROCYTE MEAN CORPUSCULAR HEMOGLOBIN CONCENTRATION (G/DL) BY AUTOMATED 30.5 g/dL Low 32.0-35.0 [facility] Comment on above: Performed By: #### L [id number] ####[facility] ([facility] [place] [address] Hematocrit (Bld) [Volume fraction] 36.4 % Low 39.0-55.0 [facility] Comment on above: Performed By: #### L [id number] ####[facility] ([facility] [place] [address] Hemoglobin (Bld) [Mass/Vol] 11.1 g/dL Low 13.0-17.0 [facility] Comment on above: Performed By: #### L [id number] ####[facility] ([facility] [place] [address] MCH (RBC) [Entitic mass] 24.7 pg Low 27.0-33.0 [facility] Comment on above: Performed By: #### L [id number] ####[facility] ([facility])[address] [place] [address] MCV (RBC) [Entitic vol] 81.1 fL Low 82.0-98.0 [facility] Comment on above: Performed By: #### L [id number] ####[facility] [place] [address] PLATELETS (10*3/UL) IN BLOOD AUTOMATED COUNT 228 10*3/uL Normal 150-400 [facility] Comment on above: Performed By: #### L [id number] ####[facility] ([facility] [place] [address] RBC (Bld) [#/Vol] 4.49 10*6/uL Normal 4.20-5.70 [facility] Comment on above: Performed By: #### L [id number] ####[facility] ([facility] [place] [address] WBC (Bld) [#/Vol] 9.94 10*3/uL Normal 4.00-10.60 [facility] Comment on above: Performed By: #### L [id number] ####[facility] ([facility] [place] [address] Erythrocyte distribution width (RBC) [Ratio] 15.6 % High 11.5-15.0 [facility] Comment on above: Performed By: #### L [id number] ####[facility] ([facility])[address] [place] [address] ERYTHROCYTE MEAN CORPUSCULAR HEMOGLOBIN CONCENTRATION (G/DL) BY AUTOMATED 30.1 g/dL Low 32.0-35.0 [facility] Comment on above: Performed By: #### L [id number] ####[facility] ([facility])[address] [place] [address] Hematocrit (Bld) [Volume fraction] 36.5 % Low 39.0-55.0 [facility] Comment on above: Performed By: #### L [id number] ####[facility] ([facility] [place] [address] Hemoglobin (Bld) [Mass/Vol] 11.0 g/dL Low 13.0-17.0 [facility] Comment on above: Performed By: #### L [id number] ####[facility] ([facility])[address] [place] [address] MCH (RBC) [Entitic mass] 24.0 pg Low 27.0-33.0 [facility] Comment on above: Performed By: #### L [id number] ####[facility] ([facility] [place] [address] MCV (RBC) [Entitic vol] 79.7 fL Low 82.0-98.0 [facility] Comment on above: Performed By: #### L [id number] ####[facility] ([facility])[address] [place] [address] PLATELETS (10*3/UL) IN BLOOD AUTOMATED COUNT 238 10*3/uL Normal 150-400 [facility] Comment on above: Performed By: #### L [id number] ####[facility] ([facility])[address] [place] [address] RBC (Bld) [#/Vol] 4.58 10*6/uL Normal 4.20-5.70 [facility] Comment on above: Performed By: #### L [id number] ####[facility] ([facility])[address] [place] [address] WBC (Bld) [#/Vol] 10.35 10*3/uL Normal 4.00-10.60 [facility] Comment on above: Performed By: #### L [id number] ####[facility] ([facility])[address] [place] [address] CONSULTon 06-04-2024 CONSULT Normal [facility] GLUCOSE, BODY FLUIDon 2023 GLUCOSE (MG/DL) IN BODY FLUID 33 mg/dL Normal [facility] Comment on above: Result Comment: The reference range and other method performance specifications have not been established for this test in fluids. the test result should be integrated into the clinical context for interpretation. Performed By: #### L [id number] ####[facility] ([facility])[address] [place] [address] HPon 09-03-2023 HP Normal [facility] HP Normal [facility] LACTATE DEHYDROGENASE, BODY FLUIDon 09-03-2023 LACTATE DEHYDROGENASE (U/L) IN BODY FLUID BY LAC->PYR 1022 U/L Normal [facility] Comment on above: Result Comment: The reference range and other method performance specifications have not been established for this test in fluids. the test result should be integrated into the clinical context for interpretation. Performed By: #### L [id number] ####[facility] ([facility] [place] [address] MAGNESIUMon 09-03-2023 Magnesium [Mass/Vol] 2.0 mg/dL Normal 1.9-2.7 [facility] Comment on above: Performed By: #### L [id number] ####[facility] (BEAKER)[address] [place] [address] Magnesium [Mass/Vol] 1.8 mg/dL Low 1.9-2.7 [facility] Comment on above: Performed By: #### L [id number] ####[facility] ([facility]ER)[address] [place] [address] NON-MANAGER FINANCIAL REPORTING CYTOLOGY - CELLULAR EXAMon 09-03-2023 LAB AP CASE REPORT Normal [facility] Comment on above: Result Comment: Non- gynecologic Cytology Case: [id number] Provider: Art George MD Collected: 09/03/2023 1415Ordering Location: [facility] Received: 09/04/2023 0654Pathologist: LILIA Gutierrezpecimen: Pericardial Fluid Performed By: #### L [id number] ####[facility] ([facility] [place] [address] LAB AP CLINICAL INFORMATION Normal [facility] Comment on above: Result Comment: Post -Op DiagnosesNo Dx found. Performed By: #### L [id number] ####[facility] ([facility] [place] [address] LAB AP GROSS DESCRIPTION [facility] Comment on above: Result Comment: 900 mL opaque, dark red fluid. Performed By: #### L [id number] ####[facility] ([facility])[address] [place] [address] LAB AP REPORT FINAL DIAGNOSIS NARRATIVE Normal [facility] Comment on above: Result Comment: A. P ericardial Fluid: - Negative for malignancy Performed By: #### L [id number] ####[facility] ([facility])[address] [place] [address] PATHOLOGY REVIEWon PATHOLOGY REVIEW Reviewed. Normal [facility] Comment on above: Result Comment: Elec tronically signed by Brenton Sorensen MD on 09/04/23 at 8:43 AM. Performed By: #### L [id number] ####[facility] ([facility])[address] [place] [address] PHOSPHORUSon 09-03-2023 Magnesium [Mass/Vol] 4.5 mg/dL Normal 2.5-5.0 [facility] Comment on above: Performed By: #### L [id number] ####[facility] ([facility])[address] [place] [address] Magnesium [Mass/Vol] 4.3 mg/dL Normal 2.5-5.0 [facility] Comment on above: Performed By: #### L [id number] ####[facility] ([facility])[address] [place] [address] PROTEIN, BODY FLUIDon 2023 Protein (Body fld) [Mass/Vol] 5.0 g/dL [facility] Comment on above: Result Comment: The reference range and other method performance specifications have not been established for this test in fluids. the test result should be integrated into the clinical context for interpretation. Performed By: #### L [id number] ####[facility] ([employer])[address] [place] [address] PROTIME-INRon 09-03-2023 INR IN PPP BY COAGULATION ASSAY 1.61 High 0.90-1.10 [facility] Comment on above: Result Comment: [facility] P RECOMMENDED INR FOR WARFARIN THERAPY CONDITION INRPROPHYLAXIS OF VENOUS THROMBOSIS 2-3(HIGH-RISK SURGERY)TREATMENT OF VENOUS THROMBOSIS 2-3TREATMENT OF PULMONARY EMBOLISM 2-3PREVENTION OF SYSTEMIC EMBOLISM: 2-3 ACUTE MYOCARDIAL INFARCTION TISSUE HEART VALVES VALVULAR HEART DISEASE ATRIAL FIBRILLATION RECURRENT SYSTEMIC EMBOLISMMECHANICAL HEART VALVE 2.5-3.5 FROM: ORAL ANTICOAGULANTS. MECHANISM OF ACTION, CLINICAL EFFECTIVENESS, AND OPTIMAL THERAPEUTIC RANGE. CHEST 1995;108:231S-246S. Performed By: #### L [id number] ####[facility] ([employer])[address] [place] [address] PROTHROMBIN TIME (PT) IN PPP BY COAGULATION ASSAY 19.0 Seconds High 12.3-14.8 [facility] Comment on above: Performed By: #### L [id number] ####[facility] ([facility])[address] [place] [address] INR IN PPP BY COAGULATION ASSAY 1.57 High 0.90-1.10 [facility] Comment on above: Result Comment: [facility] P RECOMMENDED INR FOR WARFARIN THERAPY CONDITION INRPROPHYLAXIS OF VENOUS THROMBOSIS 2-3(HIGH-RISK SURGERY)TREATMENT OF VENOUS THROMBOSIS 2-3TREATMENT OF PULMONARY EMBOLISM 2-3PREVENTION OF SYSTEMIC EMBOLISM: 2-3 ACUTE MYOCARDIAL INFARCTION TISSUE HEART VALVES VALVULAR HEART DISEASE ATRIAL FIBRILLATION RECURRENT SYSTEMIC EMBOLISMMECHANICAL HEART VALVE 2.5-3.5 FROM: ORAL ANTICOAGULANTS. MECHANISM OF ACTION, CLINICAL EFFECTIVENESS, AND OPTIMAL THERAPEUTIC RANGE. CHEST 1995;108:231S-246S. Performed By: #### L [id number] ####[facility] ([facility])[address] [place] [address] PROTHROMBIN TIME (PT) IN PPP BY COAGULATION ASSAY 18.6 Seconds High 12.3-14.8 [facility] Comment on above: Performed By: #### L [id number] ####[facility] ([facility]ER)[address] [place] [address] TYPE AND SCREENon 09-03-2023 AB SCREEN Negative [facility] Comment on above: Performed By: #### L [id number] ####[facility], ABO group Nom (Bld) A Normal [facility] Comment on above: Performed By: #### L [id number] ####[facility], RH TYPE IN BLOOD Negative Normal [facility] Comment on above: Performed By: #### L [id number] ####[facility], 08-30-2023 36 Order faxed. Formerly [facility], [facility]–1983 o [facility] 36on 08-28-2023 36 [facility] Family Medicine Office/Clini c Noteon 08-28-2023 Family Medicine Office/Clinic Note HPI Staff Nehal is a 52 year old male presenting to establish care Establish Care: History: Any previous diagnosis: HTN, Heel spurs Asthma, Depression, headaches, headaches, migraines, kidney stones, JACOBY History of seeing any specialist: Dr yung quiñones When was your last doctors visit: Last provider: Dr Aguillon Any recent labs: [facility] around 8 months ago Flu: refused Health Maintenance UTD: Colonoscopy: 2021 PSA: unsure if it has ever been checked Acute: Current issues/complaints: Pt has sleep study done and uses machine would like cpap supplies sent to [facility] in [place] pt does wear full mask- Resmed Air [...] provided. pt will have them done at [facility] on Saturday. Ordered: Misc Prescription, Full [...] will send order to medical supplies in [place] Ordered: Misc Prescription, Full Mask Resmed Air [...] Daily, # 90 tab(s), Refills(s) 3, Pharmacy: [facility]/pharmacy #[id number], 185.5, cm, 01/09/23 16:37:00 EDT, Height/Length Dosing, 174.3, kg, 01/09/23 16:37:00 EDT, Weight Dosing Follow-up No qualifying data (more content not included)... Normal [facility] Comment on above: Result Comment: Elec tronically Signed By: Yolanda SOTELO, Vonnie Estrada\.br\Date and Time Signed: 08/28/23 09:59 EDT Telephoneon 08-27-2023 Telephone Normal [facility] 36on 08-14-2023 36 Normal [facility] Orders Onlyon 08-12-2023 Orders Only Normal [facility] Orders Onlyon 08-08-2023 Orders Only Normal [facility] 37on 08-07-2023 37 Continue to monitor for signs and symptoms of infection including fever, chills, shortness of breath, chest pain, abdominal pain, nausea, vomiting and diarrhea. Call our office if you notice any of these or go to the ED if needing to Normal [facility] BASIC METABOLIC PANELon 05-0 Anion gap [Moles/Vol] 11 mmol/L Normal 7-20 [facility] Comment on above: Performed By: #### L [id number] ####[facility] ([facility])[address] [place] [address] Calcium [Mass/Vol] 9.1 mg/dL Normal 8.6-10.3 [facility] Comment on above: Performed By: #### L [id number] ####[facility] ([facility]ER)[address] [place] [address] Chloride [Moles/Vol] 101 mmol/L Normal 98-107 [facility] Comment on above: Performed By: #### L [id number] ####[facility] ([facility])[address] [place] [address] CO2 [Moles/Vol] 31 mmol/L Normal 21-31 [facility] Comment on above: Performed By: #### L [id number] ####[facility] ([facility])[address] [place] [address] Creatinine [Mass/Vol] 0.93 mg/dL Normal 0.70-1.30 [facility] Comment on above: Performed By: #### L [id number] ####[facility] ([facility])[address] [place] [address] GLOMERULAR FILTRATION RATE ML/MIN/1.73 SQ M.PREDICTED 100.0 mL/min/1.73m*2 Normal >60.0 [facility] Comment on above: Result Comment: [facility]???s estimated glomerular filtration rate (eGFR) [...] of individuals. Performed By: #### L [id number] ####[facility] ([facility])[address] [place] [address] Glucose [Mass/Vol] 91 mg/dL Normal 70-100 [facility] Comment on above: Performed By: #### L [id number] ####[facility] ([facility])[address] [place] [address] Potassium [Moles/Vol] 4.3 mmol/L Normal 3.5-5.1 [facility] Comment on above: Performed By: #### L [id number] ####[facility] ([facility])[address] [place] [address] Sodium [Moles/Vol] 139 mmol/L Normal 136-145 [facility] Comment on above: Performed By: #### L [id number] ####[facility] ([facility])[address] [place] [address] Urea nitrogen [Mass/Vol] 8 mg/dL Normal 7-25 [facility] Comment on above: Performed By: #### L [id number] ####[facility] ([facility])[address] [place] [address] UREA NITROGEN/CREATININE (MASS RATIO) IN SER/PLAS 8.6 Normal [facility] Comment on above: Performed By: #### L [id number] ####[facility] ([facility])[address] [place] [address] C-REACTIVE PROTEINon 024 C REACTIVE PROTEIN (MG/L) IN SER/PLAS 21.4 mg/L High 0.0-7.0 [facility] Comment on above: Performed By: #### L [id number] ####[facility] ([facility])[address] [place] [address] Follow-Upon 08-07-2023 Follow-Up Normal [facility] Labon 08-07-2023 Lab Normal [facility] SEDIMENTATION RATEon 024 SEDIMENTATION RATE, ERYTHROCYTE 49 mm/hr High <=10 [facility] Comment on above: Performed By: #### L [id number] ####[facility] ([facility])[address] [place] [address] Orders Onlyon 08-05-2023 Orders Only Normal [facility] 36on 07-25-2023 36 Phoned Coumadin clin ic regarding patients recent INR of 1.87. Spoke with RN regarding valve parameters for INR of 2.0-2.5 for first three months post op. RN noted that the patients coumadin would be adjusted to meet the therapeutic range. [facility] Documentationon 07-23-2023 Documentation [facility] 37on 07-17-2023 37 [facility] Follow-Upon 07-17-2023 Follow-Up [facility] Refillon 07-17-2023 Refill [facility] 36on 07-11-2023 36 I received a call fr anders Urias stating the patient has been experiencing low BP and lightheadedness. BP: 96/54 So, she is wondering if his Lisinopril can be DC. He is currently still taking the Metoprolol as prescribed. [facility] Telephoneon 07-11-2023 Telephone [facility] 36on 07-08-2023 36 Opat received. Eliu villalobosed orders with Pina at [facility]. Has an appt w/ Annabella 07/14. [facility] BASIC METABOLIC PANELon Anion gap [Moles/Vol] 12 mmol/L Normal 7-20 [facility] Comment on above: Performed By: #### L [id number] ####[facility] ([facility])[address] [place] [address] Calcium [Mass/Vol] 8.7 mg/dL Normal 8.6-10.3 [facility] Comment on above: Performed By: #### L [id number] ####[facility] ([facility])[address] [place] [address] Chloride [Moles/Vol] 102 mmol/L Normal 98-107 [facility] Comment on above: Performed By: #### L [id number] ####[facility] ([facility])[address] [place] [address] CO2 [Moles/Vol] 25 mmol/L Normal 21-31 [facility] Comment on above: Performed By: #### L [id number] ####[facility] ([facility])[address] [place] [address] Creatinine [Mass/Vol] 1.02 mg/dL Normal 0.70-1.30 [facility] Comment on above: Performed By: #### L [id number] ####[facility] ([facility])[address] [place] [address] GLOMERULAR FILTRATION RATE ML/MIN/1.73 SQ M.PREDICTED 89.5 mL/min/1.73m*2 Normal >60.0 [facility] Comment on above: Result Comment: [facility]???s estimated glomerular filtration rate (eGFR) [...] of individuals. Performed By: #### L [id number] ####[facility] ([facility])[address] [place] [address] Glucose [Mass/Vol] 101 mg/dL High 70-100 [facility] Comment on above: Performed By: #### L [id number] ####[facility] ([facility])[address] [place] [address] Potassium [Moles/Vol] 3.9 mmol/L Normal 3.5-5.1 [facility] Comment on above: Performed By: #### L [id number] ####[facility] ([facility])[address] [place] [address] Sodium [Moles/Vol] 135 mmol/L Low 136-145 [facility] Comment on above: Performed By: #### L [id number] ####[facility] ([facility])[address] [facility] [facility] [address] Urea nitrogen [Mass/Vol] 14 mg/dL Normal 7-25 [facility] Comment on above: Performed By: #### L [id number] ####[facility] ([facility])[address] [place] [address] UREA NITROGEN/CREATININE (MASS RATIO) IN SER/PLAS 13.7 Normal [facility] Comment on above: Performed By: #### L [id number] ####[facility] ([facility])[address] [place] [address] CBCon 07-05-2023 Erythrocyte distribution width (RBC) [Ratio] 15.7 % High 11.5-15.0 [facility] Comment on above: Performed By: #### L [id number] ####[facility] ([facility])[address] [place] [address] ERYTHROCYTE MEAN CORPUSCULAR HEMOGLOBIN CONCENTRATION (G/DL) BY AUTOMATED 31.8 g/dL Low 32.0-35.0 [facility] Comment on above: Performed By: #### L [id number] ####[facility] ([facility])[address] [place] [address] Hematocrit (Bld) [Volume fraction] 26.1 % Low 39.0-55.0 [facility] Comment on above: Performed By: #### L [id number] ####[facility] ([facility])[address] [place] [address] Hemoglobin (Bld) [Mass/Vol] 8.3 g/dL Low 13.0-17.0 [facility] Comment on above: Performed By: #### L [id number] ####[facility] ([facility])[address] [place] [address] MCH (RBC) [Entitic mass] 28.2 pg Normal 27.0-33.0 [facility] Comment on above: Performed By: #### L [id number] ####[facility] ([facility])[address] [place] [address] MCV (RBC) [Entitic vol] 88.8 fL Normal 82.0-98.0 [facility] Comment on above: Performed By: #### L [id number] ####[facility] ([facility])[address] [place] [address] PLATELETS (10*3/UL) IN BLOOD AUTOMATED COUNT 216 10*3/uL Normal 150-400 [facility] Comment on above: Performed By: #### L [id number] ####[facility] ([facility])[address] [place] [address] RBC (Bld) [#/Vol] 2.94 10*6/uL Low 4.20-5.70 [facility] Comment on above: Performed By: #### L [id number] ####[facility] ([facility])[address] [place] [address] WBC (Bld) [#/Vol] 4.87 10*3/uL Normal 4.00-10.60 [facility] Comment on above: Performed By: #### L [id number] ####[facility] ([facility])[address] [place] [address] DSon 07-05-2023 DS Normal [facility] Letter (Out)on 07-05-2023 Letter (Out) Normal [facility] MAGNESIUMon 07-05-2023 Magnesium [Mass/Vol] 1.9 mg/dL Normal 1.9-2.7 [facility] Comment on above: Performed By: #### L [id number] ####[facility] ([facility])[address] [place] [address] POCT GLUCOSE METER UNSOLICIT ED RESULTSon 07-05-2023 Glucose [Mass/Vol] 123 mg/dL High 70-105 [facility] Comment on above: Order Comment: Waive d Testing in the ED is performed under the ED CLIA certificate #[id number]. Result Comment: [email or web address] Performed By: #### L [id number] ####[facility] ([facility])[address] [place] [address] Glucose [Mass/Vol] 112 mg/dL High 70-105 [facility] Comment on above: Order Comment: Waive d Testing in the ED is performed under the ED CLIA certificate #[id number]. Result Comment: [email or web address] Performed By: #### L [id number] ####[facility] ([facility]AKER)[address] [place] [address] PROTIME-INRon 07-05-2023 INR IN PPP BY COAGULATION ASSAY 2.17 High 0.90-1.10 [facility] Comment on above: Result Comment: [...] CHEST 1995;108:231S-246S. Performed By: #### L [id number] ####[facility] ([facility]ER)[address] [place] [address] PROTHROMBIN TIME (PT) IN PPP BY COAGULATION ASSAY 24.3 Seconds High 12.3-14.8 [facility] Comment on above: Performed By: #### L [id number] ####[facility] ([facility])[address] [place] [address] 30on 07-04-2023 30 Normal [facility] 30 Normal [facility] 30 Normal [facility] ANTI-XA (LOW MOLECULAR WGT H EPARIN LVL)on 07-04-2023 LMW HEPARIN (U/ML) IN PPP BY CHROMOGENIC METHOD 1.00 IU/mL Normal 0.6-1.2 [facility] Comment on above: Order [...] and LMWH. Performed By: #### L [id number] ####[facility] ([facility]ER)[address] [place] [address] BASIC METABOLIC PANELon 04-0 Anion gap [Moles/Vol] 10 mmol/L Normal 7-20 [facility] Comment on above: Performed By: #### L [id number] ####[facility] ([facility])[address] [place] [address] Calcium [Mass/Vol] 8.6 mg/dL Normal 8.6-10.3 [facility] Comment on above: Performed By: #### L [id number] ####[facility] ([facility]ER)[address] [place] [address] Chloride [Moles/Vol] 103 mmol/L Normal 98-107 [facility] Comment on above: Performed By: #### L [id number] ####[facility] ([facility]ER)[address] [place] [address] CO2 [Moles/Vol] 28 mmol/L Normal 21-31 [facility] Comment on above: Performed By: #### L [id number] ####[facility] ([facility]AKER)[address] [place] [address] Creatinine [Mass/Vol] 1.04 mg/dL Normal 0.70-1.30 [facility] Comment on above: Performed By: #### L [id number] ####[facility] ([facility]ER)[address] [place] [address] GLOMERULAR FILTRATION RATE ML/MIN/1.73 SQ M.PREDICTED 87.5 mL/min/1.73m*2 Normal >60.0 [facility] Comment on above: Result Comment: [facility]???s estimated glomerular filtration rate (eGFR) [...] of individuals. Performed By: #### L [id number] ####[facility] ([employer])[address] [place] [address] Glucose [Mass/Vol] 91 mg/dL Normal 70-100 [facility] Comment on above: Performed By: #### L [id number] ####[facility] ([facility] [place] [address] Potassium [Moles/Vol] 4.6 mmol/L Normal 3.5-5.1 [facility] Comment on above: Performed By: #### L [id number] ####[facility] ([facility] [place] [address] Sodium [Moles/Vol] 136 mmol/L Normal 136-145 [facility] Comment on above: Performed By: #### L [id number] ####[facility] ([facility]ER)[address] [place] [address] Urea nitrogen [Mass/Vol] 13 mg/dL Normal 7-25 [facility] Comment on above: Performed By: #### L [id number] ####[facility] ([facility]ER)[address] [place] [address] UREA NITROGEN/CREATININE (MASS RATIO) IN SER/PLAS 12.5 Normal [facility] Comment on above: Performed By: #### L [id number] ####[facility] ([facility])[address] [place] [address] CBCon 07-04-2023 Erythrocyte distribution width (RBC) [Ratio] 15.8 % High 11.5-15.0 [facility] Comment on above: Performed By: #### L [id number] ####[facility] ([facility] [place] [address] ERYTHROCYTE MEAN CORPUSCULAR HEMOGLOBIN CONCENTRATION (G/DL) BY AUTOMATED 32.0 g/dL Normal 32.0-35.0 [facility] Comment on above: Performed By: #### L [id number] ####[facility] ([facility])[address] [place] [address] Hematocrit (Bld) [Volume fraction] 24.7 % Low 39.0-55.0 [facility] Comment on above: Performed By: #### L [id number] ####[facility] ([facility] [place] [address] Hemoglobin (Bld) [Mass/Vol] 7.9 g/dL Low 13.0-17.0 [facility] Comment on above: Performed By: #### L [id number] ####[facility] ([facility] [place] [address] MCH (RBC) [Entitic mass] 28.9 pg Normal 27.0-33.0 [facility] Comment on above: Performed By: #### L [id number] ####[facility] ([facility] [place] [address] MCV (RBC) [Entitic vol] 90.5 fL Normal 82.0-98.0 [facility] Comment on above: Performed By: #### L [id number] ####[facility] ([facility] [place] [address] PLATELETS (10*3/UL) IN BLOOD AUTOMATED COUNT 243 10*3/uL Normal 150-400 [facility] Comment on above: Performed By: #### L [id number] ####[facility] ([facility]ER)[address] [place] [address] RBC (Bld) [#/Vol] 2.73 10*6/uL Low 4.20-5.70 [facility] Comment on above: Performed By: #### L [id number] ####[facility] ([facility])[address] [place] [address] WBC (Bld) [#/Vol] 5.14 10*3/uL Normal 4.00-10.60 [facility] Comment on above: Performed By: #### L [id number] ####[facility] ([facility])[address] [place] [address] MAGNESIUMon 07-04-2023 Magnesium [Mass/Vol] 1.9 mg/dL Normal 1.9-2.7 [facility] Comment on above: Performed By: #### L [id number] ####[facility] ([facility])[address] [place] [address] POCT GLUCOSE METER UNSOLICIT ED RESULTSon 07-04-2023 Glucose [Mass/Vol] 112 mg/dL High 70-105 [facility] Comment on above: Order Comment: Waive d Testing in the ED is performed under the ED CLIA certificate #[id number]. Result Comment: [email or web address] Performed By: #### L [id number] ####[facility] ([facility])[address] [place] [address] Glucose [Mass/Vol] 130 mg/dL High 70-105 [facility] Comment on above: Order Comment: Waive d Testing in the ED is performed under the ED CLIA certificate #[id number]. Result Comment: [email or web address] Performed By: #### L [id number] ####[facility] ([facility])[address] [place] [address] Glucose [Mass/Vol] 127 mg/dL High 70-105 [facility] Comment on above: Order Comment: Waive d Testing in the ED is performed under the ED CLIA certificate #[id number]. Result Comment: [email or web address] Performed By: #### L [id number] ####[facility] ([facility])[address] [place] [address] Glucose [Mass/Vol] 113 mg/dL High 70-105 [facility] Comment on above: Order Comment: Waive d Testing in the ED is performed under the ED CLIA certificate #[id number]. Result Comment: [email or web address] Performed By: #### L [id number] ####[facility] ([facility])[address] [place] [address] PROTIME-INRon 07-04-2023 INR IN PPP BY COAGULATION ASSAY 1.77 High 0.90-1.10 [facility] Comment on above: Result Comment: [...] CHEST 1995;108:231S-246S. Performed By: #### L [id number] ####[facility] ([facility])[address] [place] [address] PROTHROMBIN TIME (PT) IN PPP BY COAGULATION ASSAY 20.7 Seconds High 12.3-14.8 [facility] Comment on above: Performed By: #### L [id number] ####[facility] ([facility])[address] [place] [address] 30on 07-03-2023 30 Normal [facility] ANTI-XA (HEPARIN LEVEL)on HEPARIN UNFRACTIONATED (U/ML) IN PPP BY CHROMOGENIC METHOD 0.12 IU/mL Invalid Interpretation Code 0.3-0.7 [facility] Comment on above: Result Comment: [place] roxaban and Apixaban will interfere with the anti Xa assay used to monitor UFH and LMWH. Performed By: #### L [id number] ####[facility] ([facility])[address] [place] [address] BASIC METABOLIC PANELon 04-0 Anion gap [Moles/Vol] 11 mmol/L Normal 7-20 [facility] Comment on above: Performed By: #### L [id number] ####[facility] ([facility])[address] [place] [address] Calcium [Mass/Vol] 8.9 mg/dL Normal 8.6-10.3 [facility] Comment on above: Performed By: #### L [id number] ####[facility] ([facility])[address] [place] [address] Chloride [Moles/Vol] 101 mmol/L Normal 98-107 [facility] Comment on above: Performed By: #### L [id number] ####[facility] ([facility])[address] [place] [address] CO2 [Moles/Vol] 28 mmol/L Normal 21-31 [facility] Comment on above: Performed By: #### L [id number] ####[facility] ([facility])[address] [place] [address] Creatinine [Mass/Vol] 1.03 mg/dL Normal 0.70-1.30 [facility] Comment on above: Performed By: #### L [id number] ####[facility] [facility] [place] [address] GLOMERULAR FILTRATION RATE ML/MIN/1.73 SQ M.PREDICTED 88.5 mL/min/1.73m*2 Normal >60.0 [facility] Comment on above: Result Comment: [facility]???s estimated glomerular filtration rate (eGFR) [...] of individuals. Performed By: #### L [id number] ####[facility] ([facility])[address] [place] [address] Glucose [Mass/Vol] 87 mg/dL Normal 70-100 [facility] Comment on above: Performed By: #### L [id number] ####[facility] ([facility])[address] [place] [address] Potassium [Moles/Vol] 4.4 mmol/L Normal 3.5-5.1 [facility] Comment on above: Performed By: #### L [id number] ####[facility] ([facility])[address] [place] [address] Sodium [Moles/Vol] 136 mmol/L Normal 136-145 [facility] Comment on above: Performed By: #### L [id number] ####[facility] ([facility])[address] [place] [address] Urea nitrogen [Mass/Vol] 13 mg/dL Normal 7-25 [facility] Comment on above: Performed By: #### L [id number] ####[facility] ([facility])[address] [place] [address] UREA NITROGEN/CREATININE (MASS RATIO) IN SER/PLAS 12.6 Normal [facility] Comment on above: Performed By: #### L [id number] ####[facility] ([facility])[address] [place] [address] CBCon 07-03-2023 Erythrocyte distribution width (RBC) [Ratio] 15.5 % High 11.5-15.0 [facility] Comment on above: Performed By: #### L [id number] ####[facility] ([facility])[address] [address] ERYTHROCYTE MEAN CORPUSCULAR HEMOGLOBIN CONCENTRATION (G/DL) BY AUTOMATED 31.9 g/dL Low 32.0-35.0 [facility] Comment on above: Performed By: #### L [id number] ####[facility] ([facility])[address] [address] Hematocrit (Bld) [Volume fraction] 25.4 % Low 39.0-55.0 [facility] Comment on above: Performed By: #### L [id number] ####[facility] ([facility])[address] [place], [place] [address] Hemoglobin (Bld) [Mass/Vol] 8.1 g/dL Low 13.0-17.0 [facility] Comment on above: Performed By: #### L [id number] ####[facility] ([facility])[address] [place] [address] MCH (RBC) [Entitic mass] 28.8 pg Normal 27.0-33.0 [facility] Comment on above: Performed By: #### L [id number] ####[facility] ([facility] [place] [address] MCV (RBC) [Entitic vol] 90.4 fL Normal 82.0-98.0 [facility] Comment on above: Performed By: #### L [id number] ####[facility] ([facility])[address] [place] [address] PLATELETS (10*3/UL) IN BLOOD AUTOMATED COUNT 247 10*3/uL Normal 150-400 [facility] Comment on above: Performed By: #### L [id number] ####[facility] ([facility])[address] [place], [place] [address] RBC (Bld) [#/Vol] 2.81 10*6/uL Low 4.20-5.70 [facility] Comment on above: Performed By: #### L [id number] ####[facility] ([facility])[address] [place] [address] WBC (Bld) [#/Vol] 4.31 10*3/uL Normal 4.00-10.60 [facility] Comment on above: Performed By: #### L [id number] ####[facility] ([facility])[address] [place] [address] MAGNESIUMon 07-03-2023 Magnesium [Mass/Vol] 2.0 mg/dL Normal 1.9-2.7 [facility] Comment on above: Performed By: #### L [id number] ####[facility] ([facility])[address] [place] [address] POCT GLUCOSE METER UNSOLICIT ED RESULTSon 07-03-2023 Glucose [Mass/Vol] 127 mg/dL High 70-105 [facility] Comment on above: Order Comment: Waive d Testing in the ED is performed under the ED CLIA certificate #[id number]. Result Comment: [email or web address] Performed By: #### L [id number] ####[facility] ([facility])[address] [place] [address] Glucose [Mass/Vol] 129 mg/dL High 70-105 [facility] Comment on above: Order Comment: Waive d Testing in the ED is performed under the ED CLIA certificate #[id number]. Result Comment: [email or web address] Performed By: #### L [id number] ####[facility] ([facility])[address] [place] [address] Glucose [Mass/Vol] 135 mg/dL High 70-105 [facility] Comment on above: Order Comment: Waive d Testing in the ED is performed under the ED CLIA certificate #[id number]. Result Comment: [email or web address] Performed By: #### L [id number] ####[facility] ([facility])[address] [place] [address] Glucose [Mass/Vol] 99 mg/dL Normal 70-105 [facility] Comment on above: Order Comment: Waive d Testing in the ED is performed under the ED CLIA certificate #[id number]. Result Comment: [email or web address] [email or web address] Performed By: #### L [id number] ####[facility] ([employer])[address] [place] [address] PROTIME-INRon 07-03-2023 INR IN PPP BY COAGULATION ASSAY 1.62 High 0.90-1.10 [facility] Comment on above: Result Comment: [...] CHEST 1995;108:231S-246S. Performed By: #### L [id number] ####[facility] ([employer])[address] [place] [address] PROTHROMBIN TIME (PT) IN PPP BY COAGULATION ASSAY 19.3 Seconds High 12.3-14.8 [facility] Comment on above: Performed By: #### L [id number] ####[facility] ([employer])[address] [place] [address] 30on 07-02-2023 30 The patient is Moder ately Stable - Low risk of patient condition declining or worsening The patient's goals for the shift include comfort, rest The clinical goals for the shift include Stable vitals, comfort Normal [facility] 30 Normal [facility] 30 Normal [facility] ANTI-XA (HEPARIN LEVEL)on HEPARIN UNFRACTIONATED (U/ML) IN PPP BY CHROMOGENIC METHOD 0.47 IU/mL Normal 0.3-0.7 [facility] Comment on above: Result Comment: [place] roxaban and Apixaban will interfere with the anti Xa assay used to monitor UFH and LMWH. Performed By: #### L [id number] ####[facility] ([facility])[address] [place] [address] BASIC METABOLIC PANELon 04-0 Anion gap [Moles/Vol] 12 mmol/L Normal 7-20 [facility] Comment on above: Performed By: #### L [id number] ####[facility] ([facility])[address] [place] [address] Calcium [Mass/Vol] 8.9 mg/dL Normal 8.6-10.3 [facility] Comment on above: Performed By: #### L [id number] ####[facility] ([facility])[address] [place] [address] Chloride [Moles/Vol] 97 mmol/L Low 98-107 [facility] Comment on above: Performed By: #### L [id number] ####[facility] ([facility])[address] [place] [address] CO2 [Moles/Vol] 28 mmol/L Normal 21-31 [facility] Comment on above: Performed By: #### L [id number] ####[facility] ([facility])[address] [place] [address] Creatinine [Mass/Vol] 1.00 mg/dL Normal 0.70-1.30 [facility] Comment on above: Performed By: #### L [id number] ####[facility] ([facility])[address] [place] [address] GLOMERULAR FILTRATION RATE ML/MIN/1.73 SQ M.PREDICTED 91.7 mL/min/1.73m*2 Normal >60.0 [facility] Comment on above: Result Comment: [facility]???s estimated glomerular filtration rate (eGFR) [...] of individuals. Performed By: #### L [id number] ####[facility] ([facility])[address] [place] [address] Glucose [Mass/Vol] 100 mg/dL Normal 70-100 [facility] Comment on above: Performed By: #### L [id number] ####[facility] ([facility])[address] [place] [address] Potassium [Moles/Vol] 3.9 mmol/L Normal 3.5-5.1 [facility] Comment on above: Performed By: #### L [id number] ####[facility] ([facility])[address] [place] [address] Sodium [Moles/Vol] 133 mmol/L Low 136-145 [facility] Comment on above: Performed By: #### L [id number] ####[facility] ([facility])[address] [place] [address] Urea nitrogen [Mass/Vol] 10 mg/dL Normal 7-25 [facility] Comment on above: Performed By: #### L [id number] ####[facility] ([facility])[address] [place] [address] UREA NITROGEN/CREATININE (MASS RATIO) IN SER/PLAS 10.0 Normal [facility] Comment on above: Performed By: #### L [id number] ####[facility] ([facility])[address] [place] [address] CBC WITH AUTO DIFFERENTIALon 07-02-2023 Basophils (Bld) [#/Vol] 0.05 10*3/uL Normal 0.00-0.20 [facility] Comment on above: Performed By: #### L [id number] ####[facility] ([facility])[address] [place] [address] Basophils/100 WBC (Bld) 0.9 % Normal 0.0-1.0 [facility] Comment on above: Performed By: #### L [id number] ####[facility] ([facility])[address] [place] [address] Eosinophils (Bld) [#/Vol] 0.27 10*3/uL Normal 0.00-0.50 [facility] Comment on above: Performed By: #### L [id number] ####[facility] ([facility])[address] [place] [address] Eosinophils/100 WBC (Bld) 4.6 % Normal 0.0-6.0 [facility] Comment on above: Performed By: #### L [id number] ####[facility] ([facility])[address] [place] [address] Erythrocyte distribution width (RBC) [Ratio] 15.4 % High 11.5-15.0 [facility] Comment on above: Performed By: #### L [id number] ####[facility] ([facility])[address] [place] [address] ERYTHROCYTE MEAN CORPUSCULAR HEMOGLOBIN CONCENTRATION (G/DL) BY AUTOMATED 32.7 g/dL Normal 32.0-35.0 [facility] Comment on above: Performed By: #### L [id number] ####[facility] ([facility])[address] [place] [address] Hematocrit (Bld) [Volume fraction] 27.2 % Low 39.0-55.0 [facility] Comment on above: Performed By: #### L [id number] ####[facility] ([facility])[address] [place] [address] Hemoglobin (Bld) [Mass/Vol] 8.9 g/dL Low 13.0-17.0 [facility] Comment on above: Performed By: #### L [id number] ####[facility] ([facility])[address] [place] [address] Immature granulocytes (Bld) [#/Vol] 0.04 10*3/uL Normal 0.00-0.20 [facility] Comment on above: Performed By: #### L [id number] ####[facility] ([facility])[address] [place] [address] Immature granulocytes/100 WBC (Bld) 0.7 % Normal 0.0-1.0 [facility] Comment on above: Performed By: #### L [id number] ####[facility] ([facility])[address] [place] [address] Lymphocytes (Bld) [#/Vol] 1.10 10*3/uL Low 1.20-4.00 [facility] Comment on above: Performed By: #### L [id number] ####[facility] ([facility])[address] [place] [address] Lymphocytes/100 WBC (Bld) 18.8 % Low 20.0-45.0 [facility] Comment on above: Performed By: #### L [id number] ####[facility] ([facility])[address] [place] [address] MCH (RBC) [Entitic mass] 29.0 pg Normal 27.0-33.0 [facility] Comment on above: Performed By: #### L [id number] ####[facility] ([facility])[address] [place] [address] MCV (RBC) [Entitic vol] 88.6 fL Normal 82.0-98.0 [facility] Comment on above: Performed By: #### L [id number] ####[facility] ([facility])[address] [place] [address] Monocytes (Bld) [#/Vol] 0.73 10*3/uL Normal 0.10-1.00 [facility] Comment on above: Performed By: #### L [id number] ####[facility] ([facility])[address] [place] [address] Monocytes/100 WBC (Bld) 12.5 % High 5.0-12.0 [facility] Comment on above: Performed By: #### L [id number] ####[facility] ([facility] [place] [address] Neutrophils (Bld) [#/Vol] 3.67 10*3/uL Normal 1.60-7.60 [facility] Comment on above: Performed By: #### L [id number] ####[facility] ([facility])[address] [address] Neutrophils/100 WBC (Bld) 62.5 % Normal 40.0-72.0 [facility] Comment on above: Performed By: #### L [id number] ####[facility] ([facility])[address] [place] [address] NRBC (PER 100 WBCS) BY AUTOMATED COUNT 0.0 % Normal 0 [facility] Comment on above: Performed By: #### L [id number] ####[facility] ([facility])[address] [place] [address] PLATELETS (10*3/UL) IN BLOOD AUTOMATED COUNT 292 10*3/uL Normal 150-400 [facility] Comment on above: Performed By: #### L [id number] ####[facility] ([facility])[address] [place] [address] RBC (Bld) [#/Vol] 3.07 10*6/uL Low 4.20-5.70 [facility] Comment on above: Performed By: #### L [id number] ####[facility] ([facility] [place], [place] [address] WBC (Bld) [#/Vol] 5.86 10*3/uL Normal 4.00-10.60 [facility] Comment on above: Performed By: #### L [id number] ####[facility] ([facility])[address] [place] [address] MAGNESIUMon 07-02-2023 Magnesium [Mass/Vol] 2.0 mg/dL Normal 1.9-2.7 [facility] Comment on above: Performed By: #### L [id number] ####[facility] ([facility])[address] [place] [address] NURSNOTEon 07-02-2023 NURSNOTE Heparin level 0.47, no need for rate change at this time. Safety Maintained. Normal [facility] POCT GLUCOSE METER UNSOLICIT ED RESULTSon 07-02-2023 Glucose [Mass/Vol] 118 mg/dL High 70-105 [facility] Comment on above: Order Comment: Waive d Testing in the ED is performed under the ED CLIA certificate #[id number]. Result Comment: [email or web address] Performed By: #### L [id number] ####[facility] ([facility])[address] [place] [address] Glucose [Mass/Vol] 154 mg/dL High 70-105 [facility] Comment on above: Order Comment: Waive d Testing in the ED is performed under the ED CLIA certificate #[id number]. Result Comment: [email or web address] [email or web address] Performed By: #### L [id number] ####[facility] ([employer])[address] [place] [address] Glucose [Mass/Vol] 138 mg/dL High 70-105 [facility] Comment on above: Order Comment: Waive d Testing in the ED is performed under the ED CLIA certificate #[id number]. Result Comment: [email or web address] Performed By: #### L [id number] ####[facility] ([employer])[address] [place] [address] Glucose [Mass/Vol] 106 mg/dL High 70-105 [facility] Comment on above: Order Comment: Waive d Testing in the ED is performed under the ED CLIA certificate #[id number]. Result Comment: [email or web address] Performed By: #### L [id number] ####[facility] ([facility])[address] [place] [address] PROTIME-INRon 07-02-2023 INR IN PPP BY COAGULATION ASSAY 1.45 High 0.90-1.10 [facility] Comment on above: Result Comment: [...] CHEST 1995;108:231S-246S. Performed By: #### L [id number] ####[facility])[address] [place] [address] PROTHROMBIN TIME (PT) IN PPP BY COAGULATION ASSAY 17.7 Seconds High 12.3-14.8 [facility] Comment on above: Performed By: #### L [id number] ####[facility] [[email or web address]] ([facility])[address] [place] [address] 30on 07-01-2023 30 Normal [facility] 30 Normal [facility] 30 Normal [facility] 30 The patient is Moder ately Stable - Low risk of patient condition declining or worsening The patient's goals for the shift include comfort The clinical goals for the shift include safety Normal [facility] ANTI-XA (HEPARIN LEVEL)on HEPARIN UNFRACTIONATED (U/ML) IN PPP BY CHROMOGENIC METHOD 0.38 IU/mL Normal 0.3-0.7 [facility] Comment on above: Result Comment: [place] roxaban and Apixaban will interfere with the anti Xa assay used to monitor UFH and LMWH. Performed By: #### L [id number] ####[facility] ([facility] [place] [address] BASIC METABOLIC PANELon 04-0 Anion gap [Moles/Vol] 12 mmol/L Normal 7-20 [facility] Comment on above: Performed By: #### L [id number] ####[facility] ([facility] [place] [address] Calcium [Mass/Vol] 8.6 mg/dL Normal 8.6-10.3 [facility] Comment on above: Performed By: #### L [id number] ####[facility] ([facility] [place] [address] Chloride [Moles/Vol] 95 mmol/L Low 98-107 [facility] Comment on above: Performed By: #### L [id number] ####[facility] ([facility] [place] [address] CO2 [Moles/Vol] 30 mmol/L Normal 21-31 [facility] Comment on above: Performed By: #### L [id number] ####[facility] ([facility] [place] [address] Creatinine [Mass/Vol] 0.89 mg/dL Normal 0.70-1.30 [facility] Comment on above: Performed By: #### L [id number] ####[facility] ([facility])[address] [place] [address] GLOMERULAR FILTRATION RATE ML/MIN/1.73 SQ M.PREDICTED 104.4 mL/min/1.73m*2 Normal >60.0 [facility] Comment on above: Result Comment: [facility]???s estimated glomerular filtration rate (eGFR) [...] of individuals. Performed By: #### L [id number] ####[facility] ([facility])[address] [place] [address] Glucose [Mass/Vol] 95 mg/dL Normal 70-100 [facility] Comment on above: Performed By: #### L [id number] ####[facility] ([facility])[address] [place] [address] Potassium [Moles/Vol] 3.6 mmol/L Normal 3.5-5.1 [facility] Comment on above: Performed By: #### L [id number] ####[facility] ([facility] [place] [address] Sodium [Moles/Vol] 133 mmol/L Low 136-145 [facility] Comment on above: Performed By: #### L [id number] ####[facility] ([facility])[address] [place] [address] Urea nitrogen [Mass/Vol] 9 mg/dL Normal 7-25 [facility] Comment on above: Performed By: #### L [id number] ####[facility] ([facility])[address] [place] [address] UREA NITROGEN/CREATININE (MASS RATIO) IN SER/PLAS 10.1 Normal [facility] Comment on above: Performed By: #### L [id number] ####[facility] ([facility])[address] [place] [address] CBCon 07-01-2023 Erythrocyte distribution width (RBC) [Ratio] 15.3 % High 11.5-15.0 [facility] Comment on above: Performed By: #### L [id number] ####[facility] ([facility])[address] [place] [address] ERYTHROCYTE MEAN CORPUSCULAR HEMOGLOBIN CONCENTRATION (G/DL) BY AUTOMATED 33.1 g/dL Normal 32.0-35.0 [facility] Comment on above: Performed By: #### L [id number] ####[facility] ([facility])[address] [place] [address] Hematocrit (Bld) [Volume fraction] 24.2 % Low 39.0-55.0 [facility] Comment on above: Performed By: #### L [id number] ####[facility] ([facility])[address] [place] [address] Hemoglobin (Bld) [Mass/Vol] 8.0 g/dL Low 13.0-17.0 [facility] Comment on above: Performed By: #### L [id number] ####[facility] ([facility])[address] [address] MCH (RBC) [Entitic mass] 29.1 pg Normal 27.0-33.0 [facility] Comment on above: Performed By: #### L [id number] ####[facility] ([facility])[address] [place] [address] MCV (RBC) [Entitic vol] 88.0 fL Normal 82.0-98.0 [facility] Comment on above: Performed By: #### L [id number] ####[facility] ([facility])[address] [place] [address] PLATELETS (10*3/UL) IN BLOOD AUTOMATED COUNT 218 10*3/uL Normal 150-400 [facility] Comment on above: Performed By: #### L [id number] ####[facility] ([facility])[address] [place] [address] RBC (Bld) [#/Vol] 2.75 10*6/uL Low 4.20-5.70 [facility] Comment on above: Performed By: #### L [id number] ####[facility] [place] [address] WBC (Bld) [#/Vol] 4.96 10*3/uL Normal 4.00-10.60 [facility] Comment on above: Performed By: #### L [id number] ####[facility] ([facility])[address] [place] [address] CONSULTon 07-01-2023 CONSULT Normal [facility] MAGNESIUMon 07-01-2023 Magnesium [Mass/Vol] 2.0 mg/dL Normal 1.9-2.7 [facility] Comment on above: Performed By: #### L [id number] ####[facility] ([facility])[address] [place] [address] POCT GLUCOSE METER UNSOLICIT ED RESULTSon 07-01-2023 Glucose [Mass/Vol] 128 mg/dL High 70-105 [facility] Comment on above: Order Comment: Waive d Testing in the ED is performed under the ED CLIA certificate #[id number]. Result Comment: [email or web address] Performed By: #### L [id number] ####[facility] ([facility])[address] [place] [address] Glucose [Mass/Vol] 119 mg/dL High 70-105 [facility] Comment on above: Order Comment: Waive d Testing in the ED is performed under the ED CLIA certificate #[id number]. Result Comment: [email or web address] Performed By: #### L [id number] ####[facility] ([facility])[address] [place] [address] Glucose [Mass/Vol] 151 mg/dL High 70-105 [facility] Comment on above: Order Comment: Waive d Testing in the ED is performed under the ED CLIA certificate #[id number]. Result Comment: [email or web address] Performed By: #### L [id number] ####[facility] ([facility])[address] [place] [address] Glucose [Mass/Vol] 119 mg/dL High 70-105 [facility] Comment on above: Order Comment: Waive d Testing in the ED is performed under the ED CLIA certificate #[id number]. Result Comment: [email or web address] Performed By: #### L [id number] ####[facility] ([facility])[address] [place] [address] Glucose [Mass/Vol] 121 mg/dL High 70-105 [facility] Comment on above: Order Comment: Waive d Testing in the ED is performed under the ED CLIA certificate #[id number]. Result Comment: [email or web address] Performed By: #### L [id number] ####[facility] ([employer])[address] [place] [address] PROTIME-INRon 07-01-2023 INR IN PPP BY COAGULATION ASSAY 1.37 High 0.90-1.10 [facility] Comment on above: Result Comment: [...] CHEST 1995;108:231S-246S. Performed By: #### L [id number] ####[facility] ([employer])[address] [place] [address] PROTHROMBIN TIME (PT) IN PPP BY COAGULATION ASSAY 16.9 Seconds High 12.3-14.8 [facility] Comment on above: Performed By: #### L [id number] ####[facility] ([facility])[address] [place] [address] 30on 06-30-2023 30 Normal [facility] ANTI-XA (HEPARIN LEVEL)on HEPARIN UNFRACTIONATED (U/ML) IN PPP BY CHROMOGENIC METHOD 0.39 IU/mL Normal 0.3-0.7 [facility] Comment on above: Result Comment: [place] roxaban and Apixaban will interfere with the anti Xa assay used to monitor UFH and LMWH. Performed By: #### L [id number] ####[facility] ([facility])[address] [place] [address] BASIC METABOLIC PANELon 06-01 Anion gap [Moles/Vol] 11 mmol/L Normal 7-20 [facility] Comment on above: Performed By: #### L [id number] ####[facility] ([facility])[address] [place] [address] Calcium [Mass/Vol] 8.9 mg/dL Normal 8.6-10.3 [facility] Comment on above: Performed By: #### L [id number] ####[facility] ([facility])[address] [place] [address] Chloride [Moles/Vol] 96 mmol/L Low 98-107 [facility] Comment on above: Performed By: #### L [id number] ####[facility] ([facility])[address] [place] [address] CO2 [Moles/Vol] 30 mmol/L Normal -31 [facility] Comment on above: Performed By: #### L [id number] ####[facility] ([facility])[address] [place] [address] Creatinine [Mass/Vol] 0.78 mg/dL Normal 0.70-1.30 [facility] Comment on above: Performed By: #### L [id number] ####[facility] ([facility])[address] [place] [address] GLOMERULAR FILTRATION RATE ML/MIN/1.73 SQ M.PREDICTED 108.6 mL/min/1.73m*2 Normal >60.0 [facility] Comment on above: Result Comment: [facility]???s estimated glomerular filtration rate (eGFR) [...] of individuals. Performed By: #### L [id number] ####[facility] ([facility])[address] [place] [address] Glucose [Mass/Vol] 108 mg/dL High 70-100 [facility] Comment on above: Performed By: #### L [id number] ####[facility] ([facility])[address] [place] [address] Potassium [Moles/Vol] 3.9 mmol/L Normal 3.5-5.1 [facility] Comment on above: Performed By: #### L [id number] ####[facility] ([facility])[address] [place] [address] Sodium [Moles/Vol] 133 mmol/L Low 136-145 [facility] Comment on above: Performed By: #### L [id number] ####[facility] ([facility])[address] [place] [address] Urea nitrogen [Mass/Vol] 9 mg/dL Normal 7-25 [facility] Comment on above: Performed By: #### L [id number] ####[facility] ([facility])[address] [place] [address] UREA NITROGEN/CREATININE (MASS RATIO) IN SER/PLAS 11.5 Normal [facility] Comment on above: Performed By: #### L [id number] ####[facility] ([facility])[address] [place] [address] CBCon 06-30-2023 Erythrocyte distribution width (RBC) [Ratio] 15.4 % High 11.5-15.0 [facility] Comment on above: Performed By: #### L [id number] ####[facility] ([facility])[address] [place] [address] ERYTHROCYTE MEAN CORPUSCULAR HEMOGLOBIN CONCENTRATION (G/DL) BY AUTOMATED 33.6 g/dL Normal 32.0-35.0 [facility] Comment on above: Performed By: #### L [id number] ####[facility] ([facility])[address] [place] [address] Hematocrit (Bld) [Volume fraction] 24.4 % Low 39.0-55.0 [facility] Comment on above: Performed By: #### L [id number] ####[facility] ([facility])[address] [place] [address] Hemoglobin (Bld) [Mass/Vol] 8.2 g/dL Low 13.0-17.0 [facility] Comment on above: Performed By: #### L [id number] ####[facility] ([facility])[address] [place] [address] MCH (RBC) [Entitic mass] 28.9 pg Normal 27.0-33.0 [facility] Comment on above: Performed By: #### L [id number] ####[facility] ([facility])[address] [place] [address] MCV (RBC) [Entitic vol] 85.9 fL Normal 82.0-98.0 [facility] Comment on above: Performed By: #### L [id number] ####[facility] [place] [address] PLATELETS (10*3/UL) IN BLOOD AUTOMATED COUNT 203 10*3/uL Normal 150-400 [facility] Comment on above: Performed By: #### L [id number] ####[facility] [place] [address] RBC (Bld) [#/Vol] 2.84 10*6/uL Low 4.20-5.70 [facility] Comment on above: Performed By: #### L [id number] ####[facility] ([facility])[address] [place] [address] WBC (Bld) [#/Vol] 6.03 10*3/uL Normal 4.00-10.60 [facility] Comment on above: Performed By: #### L [id number] ####[facility] ([facility])[address] [place] [address] CKon 06-30-2023 CREATINE KINASE (U/L) IN SER/PLAS 144.0 U/L Normal 30.0-223.0 [facility] Comment on above: Performed By: #### L [id number] ####[facility] ([facility])[address] [place] [address] MAGNESIUMon 06-30-2023 Magnesium [Mass/Vol] 2.1 mg/dL Normal 1.9-2.7 [facility] Comment on above: Performed By: #### L [id number] ####[facility] ([facility])[address] [place] [address] Magnesium [Mass/Vol] 2.2 mg/dL Normal 1.9-2.7 [facility] Comment on above: Performed By: #### L [id number] ####[facility] ([facility])[address] [place] [address] POCT GLUCOSE METER UNSOLICIT ED RESULTSon 06-30-2023 Glucose [Mass/Vol] 243 mg/dL High 70-105 [facility] Comment on above: Order Comment: Waive d Testing in the ED is performed under the ED CLIA certificate #[id number]. Result Comment: [email or web address] Performed By: #### L [id number] ####[facility] ([facility])[address] [place] [address] Glucose [Mass/Vol] 112 mg/dL High 70-105 [facility] Comment on above: Order Comment: Waive d Testing in the ED is performed under the ED CLIA certificate #[id number]. Result Comment: [email or web address] Performed By: #### L [id number] ####[facility] ([facility])[address] [facility] [place] [address] Glucose [Mass/Vol] 124 mg/dL High 70-105 [facility] Comment on above: Order Comment: Waive d Testing in the ED is performed under the ED CLIA certificate #[id number]. Result Comment: [email or web address] Performed By: #### L [id number] ####[facility] ([facility])[address] [facility] [place] [address] Glucose [Mass/Vol] 158 mg/dL High 70-105 [facility] Comment on above: Order Comment: Waive d Testing in the ED is performed under the ED CLIA certificate #[id number]. Result Comment: [email or web address] Performed By: #### L [id number] ####[facility] ([facility])[address] [place] [address] POTASSIUMon 06-30-2023 Potassium [Moles/Vol] 4.0 mmol/L Normal 3.5-5.1 [facility] Comment on above: Performed By: #### L [id number] ####[facility] ([facility])[address] [place] [address] PROTIME-INRon 06-30-2023 INR IN PPP BY COAGULATION ASSAY 1.21 High 0.90-1.10 [facility] Comment on above: Result Comment: [...] CHEST 1995;108:231S-246S. Performed By: #### L [id number] ####[facility] ([facility])[address] [place] [address] PROTHROMBIN TIME (PT) IN PPP BY COAGULATION ASSAY 15.4 Seconds High 12.3-14.8 [facility] Comment on above: Performed By: #### L [id number] ####[facility] ([facility])[address] [place] [address] 30on 06-29-2023 30 Normal [facility] 30 Normal [facility] ANTI-XA (HEPARIN LEVEL)on HEPARIN UNFRACTIONATED (U/ML) IN PPP BY CHROMOGENIC METHOD 0.30 IU/mL Normal 0.3-0.7 [facility] Comment on above: Result Comment: [place] roxaban and Apixaban will interfere with the anti Xa assay used to monitor UFH and LMWH. Performed By: #### L [id number] ####[facility] ([facility])[address] [place] [address] HEPARIN UNFRACTIONATED (U/ML) IN PPP BY CHROMOGENIC METHOD 0.31 IU/mL Normal 0.3-0.7 [facility] Comment on above: Result Comment: [place] roxaban and Apixaban will interfere with the anti Xa assay used to monitor UFH and LMWH. Performed By: #### L [id number] ####[facility] ([facility])[address] [place] [address] BASIC METABOLIC PANELon 06-01 Anion gap [Moles/Vol] 10 mmol/L Normal 7-20 [facility] Comment on above: Performed By: #### L [id number] ####[facility] ([facility])[address] [place] [address] Calcium [Mass/Vol] 8.3 mg/dL Low 8.6-10.3 [facility] Comment on above: Performed By: #### L [id number] ####[facility] ([facility])[address] [place] [address] Chloride [Moles/Vol] 96 mmol/L Low 98-107 [facility] Comment on above: Performed By: #### L [id number] ####[facility] ([facility])[address] [place] [address] CO2 [Moles/Vol] 29 mmol/L Normal 21-31 [facility] Comment on above: Performed By: #### L [id number] ####[facility] ([facility])[address] [place] [address] Creatinine [Mass/Vol] 0.74 mg/dL Normal 0.70-1.30 [facility] Comment on above: Performed By: #### L [id number] ####[facility] ([facility])[address] [place] [address] GLOMERULAR FILTRATION RATE ML/MIN/1.73 SQ M.PREDICTED 110.4 mL/min/1.73m*2 Normal >60.0 [facility] Comment on above: Result Comment: [facility]???s estimated glomerular filtration rate (eGFR) [...] of individuals. Performed By: #### L [id number] ####[facility] ([facility])[address] [place] [address] Glucose [Mass/Vol] 107 mg/dL High 70-100 [facility] Comment on above: Performed By: #### L [id number] ####[facility] [place] [address] Potassium [Moles/Vol] 4.3 mmol/L Normal 3.5-5.1 [facility] Comment on above: Performed By: #### L [id number] ####[facility] [place] [address] Sodium [Moles/Vol] 131 mmol/L Low 136-145 [facility] Comment on above: Performed By: #### L [id number] ####[facility] [place] [address] Urea nitrogen [Mass/Vol] 9 mg/dL Normal 7-25 [facility] Comment on above: Performed By: #### L [id number] ####[facility] ([facility])[address] [place] [address] UREA NITROGEN/CREATININE (MASS RATIO) IN SER/PLAS 12.2 Normal [facility] Comment on above: Performed By: #### L [id number] ####[facility] ([facility])[address] [place] [address] CBCon 06-29-2023 Erythrocyte distribution width (RBC) [Ratio] 15.8 % High 11.5-15.0 [facility] Comment on above: Performed By: #### L [id number] ####[facility] ([facility])[address] [place] [address] ERYTHROCYTE MEAN CORPUSCULAR HEMOGLOBIN CONCENTRATION (G/DL) BY AUTOMATED 33.6 g/dL Normal 32.0-35.0 [facility] Comment on above: Performed By: #### L [id number] ####[facility] [place], [place] [address] Hematocrit (Bld) [Volume fraction] 23.5 % Low 39.0-55.0 [facility] Comment on above: Performed By: #### L [id number] ####[facility] ([facility])[address] [place] [address] Hemoglobin (Bld) [Mass/Vol] 7.9 g/dL Low 13.0-17.0 [facility] Comment on above: Performed By: #### L [id number] ####[facility] ([facility])[address] [place] [address] MCH (RBC) [Entitic mass] 29.5 pg Normal 27.0-33.0 [facility] Comment on above: Performed By: #### L [id number] ####[facility] ([facility])[address] [place] [address] MCV (RBC) [Entitic vol] 87.7 fL Normal 82.0-98.0 [facility] Comment on above: Performed By: #### L [id number] ####[facility] ([facility])[address] [place] [address] PLATELETS (10*3/UL) IN BLOOD AUTOMATED COUNT 161 10*3/uL Normal 150-400 [facility] Comment on above: Performed By: #### L [id number] ####[facility] ([facility])[address] [place] [address] RBC (Bld) [#/Vol] 2.68 10*6/uL Low 4.20-5.70 [facility] Comment on above: Performed By: #### L [id number] ####[facility] ([facility])[address] [place] [address] WBC (Bld) [#/Vol] 6.52 10*3/uL Normal 4.00-10.60 [facility] Comment on above: Performed By: #### L [id number] ####[facility] ([facility])[address] [place] [address] MAGNESIUMon 06-29-2023 Magnesium [Mass/Vol] 2.3 mg/dL Normal 1.9-2.7 [facility] Comment on above: Performed By: #### L [id number] ####[facility] [place] [address] Magnesium [Mass/Vol] 2.0 mg/dL Normal 1.9-2.7 [facility] Comment on above: Performed By: #### L [id number] ####[facility] ([facility])[address] [place] [address] NURSNOTEon 06-29-2023 NURSNOTE Normal [facility] PHOSPHORUSon 06-29-2023 Magnesium [Mass/Vol] 3.2 mg/dL Normal 2.5-5.0 [facility] Comment on above: Performed By: #### L [id number] ####[facility] ([facility])[address] [place] [address] POCT GLUCOSE METER UNSOLICIT ED RESULTSon 06-29-2023 Glucose [Mass/Vol] 129 mg/dL High 70-105 [facility] Comment on above: Order Comment: Waive d Testing in the ED is performed under the ED CLIA certificate #[id number]. Result Comment: [email or web address] Performed By: #### L [id number] ####[facility] ([facility])[address] [place] [address] Glucose [Mass/Vol] 108 mg/dL High 70-105 [facility] Comment on above: Order Comment: Waive d Testing in the ED is performed under the ED CLIA certificate #[id number]. Result Comment: [email or web address] Performed By: #### L [id number] ####[facility] ([facility])[address] [place] [address] Glucose [Mass/Vol] 142 mg/dL High 70-105 [facility] Comment on above: Order Comment: Waive d Testing in the ED is performed under the ED CLIA certificate #[id number]. Result Comment: [email or web address] Performed By: #### L [id number] ####[facility] ([facility])[address] [place] [address] Glucose [Mass/Vol] 136 mg/dL High 70-105 [facility] Comment on above: Order Comment: Waive d Testing in the ED is performed under the ED CLIA certificate #[id number]. Result Comment: [email or web address] Performed By: #### L [id number] ####[facility] ([facility])[address] [place] [address] POTASSIUMon 06-29-2023 Potassium [Moles/Vol] 4.3 mmol/L Normal 3.5-5.1 [facility] Comment on above: Performed By: #### L [id number] ####[facility] ([facility])[address] [place] [address] PROTIME-INRon 06-29-2023 INR IN PPP BY COAGULATION ASSAY 1.13 High 0.90-1.10 [facility] Comment on above: Result Comment: [...] CHEST 1995;108:231S-246S. Performed By: #### L [id number] ####[facility] ([facility])[address] [place] [address] PROTHROMBIN TIME (PT) IN PPP BY COAGULATION ASSAY 14.5 Seconds Normal 12.3-14.8 [facility] Comment on above: Performed By: #### L [id number] ####[facility] ([facility])[address] [place] [address] 30on 06-28-2023 30 Normal [facility] 30 Normal [facility] ANTI-XA (HEPARIN LEVEL)on HEPARIN UNFRACTIONATED (U/ML) IN PPP BY CHROMOGENIC METHOD 0.25 IU/mL Low 0.3-0.7 [facility] Comment on above: Result Comment: [place] roxaban and Apixaban will interfere with the anti Xa assay used to monitor UFH and LMWH. Performed By: #### L [id number] ####[facility] ([facility])[address] [place] [address] HEPARIN UNFRACTIONATED (U/ML) IN PPP BY CHROMOGENIC METHOD 0.16 IU/mL Invalid Interpretation Code 0.3-0.7 [facility] Comment on above: Result Comment: [place] roxaban and Apixaban will interfere with the anti Xa assay used to monitor UFH and LMWH. Performed By: #### L [id number] ####[facility] ([facility])[address] [place] [address] HEPARIN UNFRACTIONATED (U/ML) IN PPP BY CHROMOGENIC METHOD <0.10 Invalid Interpretation Code 0.3-0.7 [facility] Comment on above: Order Comment: Check anti-Xa level every 6 hours while on heparin infusion, or per protocol. Result Comment: [place] roxaban and Apixaban will interfere with the anti Xa assay used to monitor UFH and LMWH. Performed By: #### L [id number] ####[facility] ([facility])[address] [place] [address] APTTon 06-28-2023 ACTIVATED PARTIAL THROMBOPLASTIN TIME IN PPP BY COAGULATION ASSAY 31.5 Seconds Normal 25.0-35.0 [facility] Comment on above: Order Comment: Basel ine aPTT before initiating heparin infusion. Result Comment: Clin ical significance of the APTT is questionable in the presence of heparin. Performed By: #### L [id number] ####[facility] [place] [address] BASIC METABOLIC PANELon - Anion gap [Moles/Vol] 14 mmol/L Normal 7-20 [facility] Comment on above: Performed By: #### L [id number] ####[facility] ([facility])[address] [place] [address] Calcium [Mass/Vol] 8.1 mg/dL Low 8.6-10.3 [facility] Comment on above: Performed By: #### L [id number] ####[facility] ([facility])[address] [place] [address] Chloride [Moles/Vol] 95 mmol/L Low 98-107 [facility] Comment on above: Performed By: #### L [id number] ####[facility] ([facility])[address] [place] [address] CO2 [Moles/Vol] 25 mmol/L Normal 21-31 [facility] Comment on above: Performed By: #### L [id number] ####[facility] ([facility])[address] [place] [address] Creatinine [Mass/Vol] 0.69 mg/dL Low 0.70-1.30 [facility] Comment on above: Performed By: #### L [id number] ####[facility] ([facility])[address] [place] [address] GLOMERULAR FILTRATION RATE ML/MIN/1.73 SQ M.PREDICTED 112.7 mL/min/1.73m*2 Normal >60.0 [facility] Comment on above: Result Comment: [facility]???s estimated glomerular filtration rate (eGFR) [...] of individuals. Performed By: #### L [id number] ####[facility] ([facility])[address] [place] [address] Glucose [Mass/Vol] 103 mg/dL High 70-100 [facility] Comment on above: Performed By: #### L [id number] ####[facility] [place] [address] Potassium [Moles/Vol] 3.9 mmol/L Normal 3.5-5.1 [facility] Comment on above: Performed By: #### L [id number] ####[facility] [place] [address] Sodium [Moles/Vol] 130 mmol/L Low 136-145 [facility] Comment on above: Performed By: #### L [id number] ####[facility] ([facility])[address] [place] [address] Urea nitrogen [Mass/Vol] 10 mg/dL Normal 7-25 [facility] Comment on above: Performed By: #### L [id number] ####[facility] ([facility])[address] [place] [address] UREA NITROGEN/CREATININE (MASS RATIO) IN SER/PLAS 14.5 Normal [facility] Comment on above: Performed By: #### L [id number] ####[facility] ([facility])[address] [place] [address] Anion gap [Moles/Vol] 8 mmol/L Normal 7-20 [facility] Comment on above: Performed By: #### L [id number] ####[facility] ([facility])[address] [place] [address] Calcium [Mass/Vol] 8.1 mg/dL Low 8.6-10.3 [facility] Comment on above: Performed By: #### L [id number] ####[facility] ([facility])[address] [place] [address] Chloride [Moles/Vol] 98 mmol/L Normal 98-107 [facility] Comment on above: Performed By: #### L [id number] ####[facility] ([facility])[address] [place] [address] CO2 [Moles/Vol] 29 mmol/L Normal 21-31 [facility] Comment on above: Performed By: #### L [id number] ####[facility] ([facility])[address] [place] [address] Creatinine [Mass/Vol] 0.73 mg/dL Normal 0.70-1.30 [facility] Comment on above: Performed By: #### L [id number] ####[facility] ([facility])[address] [place] [address] GLOMERULAR FILTRATION RATE ML/MIN/1.73 SQ M.PREDICTED 110.8 mL/min/1.73m*2 Normal >60.0 [facility] Comment on above: Result Comment: The [facility]???s estimated glomerular filtration rate (eGFR) [...] of individuals. Performed By: #### L [id number] ####[facility] ([facility])[address] [place] [address] Glucose [Mass/Vol] 118 mg/dL High 70-100 [facility] Comment on above: Performed By: #### L [id number] ####[facility] ([facility])[address] [place] [address] Potassium [Moles/Vol] 3.8 mmol/L Normal 3.5-5.1 [facility] Comment on above: Performed By: #### L [id number] ####[facility] ([facility])[address] [place] [address] Sodium [Moles/Vol] 131 mmol/L Low 136-145 [facility] Comment on above: Performed By: #### L [id number] ####[facility] ([facility])[address] [place] [address] Urea nitrogen [Mass/Vol] 10 mg/dL Normal 7-25 [facility] Comment on above: Performed By: #### L [id number] ####[facility] ([facility])[address] [place] [address] UREA NITROGEN/CREATININE (MASS RATIO) IN SER/PLAS 13.7 Normal [facility] Comment on above: Performed By: #### L [id number] ####[facility] ([facility])[address] [address] CBCon 06-28-2023 Erythrocyte distribution width (RBC) [Ratio] 15.6 % High 11.5-15.0 [facility] Comment on above: Performed By: #### L [id number] ####[facility] ([facility])[address] [address] ERYTHROCYTE MEAN CORPUSCULAR HEMOGLOBIN CONCENTRATION (G/DL) BY AUTOMATED 33.8 g/dL Normal 32.0-35.0 [facility] Comment on above: Performed By: #### L [id number] ####[facility] ([facility])[address] [place] [address] Hematocrit (Bld) [Volume fraction] 20.4 % Low 39.0-55.0 [facility] Comment on above: Performed By: #### L [id number] ####[facility] [place] [address] Hemoglobin (Bld) [Mass/Vol] 6.9 g/dL Low 13.0-17.0 [facility] Comment on above: Performed By: #### L [id number] ####[facility] [place] [address] IMMATURE PLATELET FRACTION % 5.6 % Normal 0.8-6.3 [facility] Comment on above: Performed By: #### L [id number] ####[facility] ([facility])[address] [place] [address] MCH (RBC) [Entitic mass] 29.5 pg Normal 27.0-33.0 [facility] Comment on above: Performed By: #### L [id number] ####[facility] ([facility])[address] [place] [address] MCV (RBC) [Entitic vol] 87.2 fL Normal 82.0-98.0 [facility] Comment on above: Performed By: #### L [id number] ####[facility] ([facility])[address] [place] [address] PLATELETS (10*3/UL) IN BLOOD AUTOMATED COUNT 127 10*3/uL Low 150-400 [facility] Comment on above: Performed By: #### L [id number] ####[facility] ([facility])[address] [place] [address] RBC (Bld) [#/Vol] 2.34 10*6/uL Low 4.20-5.70 [facility] Comment on above: Performed By: #### L [id number] ####[facility] ([facility])[address] [place] [address] WBC (Bld) [#/Vol] 6.57 10*3/uL Normal 4.00-10.60 [facility] Comment on above: Performed By: #### L [id number] ####[facility] ([facility])[address] [place] [address] CKon 06-28-2023 CREATINE KINASE (U/L) IN SER/PLAS 560.0 U/L High 30.0-223.0 [facility] Comment on above: Performed By: #### L [id number] ####[facility] ([facility])[address] [place] [address] CONSULTon 06-28-2023 CONSULT Normal [facility] MAGNESIUMon 06-28-2023 Magnesium [Mass/Vol] 1.9 mg/dL Normal 1.9-2.7 [facility] Comment on above: Performed By: #### L [id number] ####[facility] ([facility])[address] [place] [address] PLATELET COUNTon 06-28-2023 IMMATURE PLATELET FRACTION % 6.1 % Normal 0.8-6.3 [facility] Comment on above: Performed By: #### L [id number] ####[facility] ([facility])[address] [place] [address] PLATELETS (10*3/UL) IN BLOOD AUTOMATED COUNT 126 10*3/uL Low 150-400 [facility] Comment on above: Performed By: #### L [id number] ####[facility] ([facility])[address] [place] [address] POCT GLUCOSE METER UNSOLICIT ED RESULTSon 06-28-2023 Glucose [Mass/Vol] 95 mg/dL Normal 70-105 [facility] Comment on above: Order Comment: Waive d Testing in the ED is performed under the ED CLIA certificate #[id number]. Result Comment: paula parmar Performed By: #### L [id number] ####[facility] ([facility])[address] [place] [address] Glucose [Mass/Vol] 118 mg/dL High 70-105 [facility] Comment on above: Order Comment: Waive d Testing in the ED is performed under the ED CLIA certificate #[id number]. Result Comment: newuz gabo Performed By: #### L [id number] ####[facility] ([facility])[address] [place] [address] Glucose [Mass/Vol] 111 mg/dL High 70-105 [facility] Comment on above: Order Comment: Waive d Testing in the ED is performed under the ED CLIA certificate #[id number]. Result Comment: cgil lso Performed By: #### L [id number] ####[facility] ([facility])[address] [place] [address] Glucose [Mass/Vol] 160 mg/dL High 70-105 [facility] Comment on above: Order Comment: Waive d Testing in the ED is performed under the ED CLIA certificate #[id number]. Result Comment: lui [email or web address] Performed By: #### L [id number] ####[facility] ([facility])[address] [place] [address] PROTIME-INRon 06-28-2023 INR IN PPP BY COAGULATION ASSAY 1.16 High 0.90-1.10 [facility] Comment on above: Result Comment: [...] CHEST 1995;108:231S-246S. Performed By: #### L [id number] ####[facility] ([facility])[address] [place] [address] PROTHROMBIN TIME (PT) IN PPP BY COAGULATION ASSAY 14.8 Seconds Normal 12.3-14.8 [facility] Comment on above: Performed By: #### L [id number] ####[facility] ([facility])[address] [place] [address] 30on 06-27-2023 30 Normal [facility] 30 Normal [facility] APTTon 06-27-2023 ACTIVATED PARTIAL THROMBOPLASTIN TIME IN PPP BY COAGULATION ASSAY 35.5 Seconds High 25.0-35.0 [facility] Comment on above: Result Comment: Clin ical significance of the APTT is questionable in the presence of heparin. Performed By: #### L [id number] ####[facility] ([facility])[address] [place] [address] BASIC METABOLIC PANELon 03-2 Anion gap [Moles/Vol] 9 mmol/L Normal 7-20 [facility] Comment on above: Performed By: #### L [id number] ####[facility] ([facility])[address] [place] [address] Calcium [Mass/Vol] 8.3 mg/dL Low 8.6-10.3 [facility] Comment on above: Performed By: #### L [id number] ####[facility] ([facility])[address] [place] [address] Chloride [Moles/Vol] 104 mmol/L Normal 98-107 [facility] Comment on above: Performed By: #### L [id number] ####[facility] [place] [address] CO2 [Moles/Vol] 26 mmol/L Normal 21-31 [facility] Comment on above: Performed By: #### L [id number] ####[facility] ([facility])[address] [place] [address] Creatinine [Mass/Vol] 0.78 mg/dL Normal 0.70-1.30 [facility] Comment on above: Performed By: #### L [id number] ####[facility] ([facility] [place] [address] GLOMERULAR FILTRATION RATE ML/MIN/1.73 SQ M.PREDICTED 108.6 mL/min/1.73m*2 Normal >60.0 [facility] Comment on above: Result Comment: The [facility]???s estimated glomerular filtration rate (eGFR) [...] of individuals. Performed By: #### L [id number] ####[facility] ([facility])[address] [place] [address] Glucose [Mass/Vol] 117 mg/dL High 70-100 [facility] Comment on above: Performed By: #### L [id number] ####[facility] ([facility])[address] [place] [address] Potassium [Moles/Vol] 4.9 mmol/L Normal 3.5-5.1 [facility] Comment on above: Performed By: #### L [id number] ####[facility] ([facility])[address] [place] [address] Sodium [Moles/Vol] 134 mmol/L Low 136-145 [facility] Comment on above: Performed By: #### L [id number] ####[facility] ([facility])[address] [place] [address] Urea nitrogen [Mass/Vol] 10 mg/dL Normal 7-25 [facility] Comment on above: Performed By: #### L [id number] ####[facility] ([facility])[address] [place] [address] UREA NITROGEN/CREATININE (MASS RATIO) IN SER/PLAS 12.8 Normal [facility] Comment on above: Performed By: #### L [id number] ####[facility] ([facility])[address] [place] [address] CBCon 06-27-2023 Erythrocyte distribution width (RBC) [Ratio] 15.9 % High 11.5-15.0 [facility] Comment on above: Performed By: #### L [id number] ####[facility] ([facility])[address] [place] [address] ERYTHROCYTE MEAN CORPUSCULAR HEMOGLOBIN CONCENTRATION (G/DL) BY AUTOMATED 34.4 g/dL Normal 32.0-35.0 [facility] Comment on above: Performed By: #### L [id number] ####[facility] ([facility])[address] [place] [address] Hematocrit (Bld) [Volume fraction] 21.8 % Low 39.0-55.0 [facility] Comment on above: Performed By: #### L [id number] ####[facility] ([facility])[address] [place] [address] Hemoglobin (Bld) [Mass/Vol] 7.5 g/dL Low 13.0-17.0 [facility] Comment on above: Performed By: #### L [id number] ####[facility] ([facility])[address] [place] [address] IMMATURE PLATELET FRACTION % 4.8 % Normal 0.8-6.3 [facility] Comment on above: Performed By: #### L [id number] ####[facility] ([facility])[address] [place] [address] MCH (RBC) [Entitic mass] 30.2 pg Normal 27.0-33.0 [facility] Comment on above: Performed By: #### L [id number] ####[facility] ([facility])[address] [place] [address] MCV (RBC) [Entitic vol] 87.9 fL Normal 82.0-98.0 [facility] Comment on above: Performed By: #### L [id number] ####[facility] ([facility])[address] [place] [address] PLATELETS (10*3/UL) IN BLOOD AUTOMATED COUNT 116 10*3/uL Low 150-400 [facility] Comment on above: Performed By: #### L [id number] ####[facility] ([facility])[address] [place] [address] RBC (Bld) [#/Vol] 2.48 10*6/uL Low 4.20-5.70 [facility] Comment on above: Performed By: #### L [id number] ####[facility] ([facility])[address] [place] [address] WBC (Bld) [#/Vol] 5.34 10*3/uL Normal 4.00-10.60 [facility] Comment on above: Performed By: #### L [id number] ####[facility] ([facility])[address] [place] [address] CONSULTon 06-27-2023 CONSULT Normal [facility] MAGNESIUMon 06-27-2023 Magnesium [Mass/Vol] 2.0 mg/dL Normal 1.9-2.7 [facility] Comment on above: Performed By: #### L [id number] ####[facility] ([facility])[address] [place], [place] [address] PHOSPHORUSon 06-27-2023 Magnesium [Mass/Vol] 4.2 mg/dL Normal 2.5-5.0 [facility] Comment on above: Performed By: #### L [id number] ####[facility] ([facility])[address] [place] [address] POCT GLUCOSE METER UNSOLICIT ED RESULTSon 06-27-2023 Glucose [Mass/Vol] 154 mg/dL High 70-105 [facility] Comment on above: Order Comment: Waive d Testing in the ED is performed under the ED CLIA certificate #[id number]. Result Comment: mer jha Performed By: #### L [id number] ####[facility] ([facility])[address] [place] [address] Glucose [Mass/Vol] 114 mg/dL High 70-105 [facility] Comment on above: Order Comment: Waive d Testing in the ED is performed under the ED CLIA certificate #[id number]. Result Comment: mer jha Performed By: #### L [id number] ####[facility] ([facility])[address] [place] [address] Glucose [Mass/Vol] 108 mg/dL High 70-105 [facility] Comment on above: Order Comment: Waive d Testing in the ED is performed under the ED CLIA certificate #[id number]. Result Comment: mer jha Performed By: #### L [id number] ####[facility] ([facility])[address] [place] [address] Glucose [Mass/Vol] 112 mg/dL High 70-105 [facility] Comment on above: Order Comment: Waive d Testing in the ED is performed under the ED CLIA certificate #[id number]. Result Comment: mmcc gabo Performed By: #### L [id number] ####[facility] ([facility])[address] [place] [address] Glucose [Mass/Vol] 111 mg/dL High 70-105 [facility] Comment on above: Order Comment: Waive d Testing in the ED is performed under the ED CLIA certificate #[id number]. Result Comment: mmcc gabo Performed By: #### L [id number] ####[facility] ([facility])[address] [place] [address] Glucose [Mass/Vol] 120 mg/dL High 70-105 [facility] Comment on above: Order Comment: Waive d Testing in the ED is performed under the ED CLIA certificate #[id number]. Result Comment: mmcc gabo Performed By: #### L [id number] ####[facility] ([facility])[address] [place] [address] Glucose [Mass/Vol] 128 mg/dL High 70-105 [facility] Comment on above: Order Comment: Waive d Testing in the ED is performed under the ED CLIA certificate #[id number]. Result Comment: mmcc gabo Performed By: #### L [id number] ####[facility] ([facility])[address] [place] [address] PROTIME-INRon 06-27-2023 INR IN PPP BY COAGULATION ASSAY 1.30 High 0.90-1.10 [facility] Comment on above: Order [...] CHEST 1995;108:231S-246S. Performed By: #### L [id number] ####[facility] [employer])[address] [place] [address] PROTHROMBIN TIME (PT) IN PPP BY COAGULATION ASSAY 16.3 Seconds High 12.3-14.8 [facility] Comment on above: Order Comment: On ar rival to SICU Performed By: #### L [id number] ####[facility] ([employer])[address] [place] [address] 30on 06-26-2023 30 Normal [facility] 30 Normal [facility] 30 Normal [facility] ANESon 06-26-2023 ANES Normal [facility] APTTon 06-26-2023 ACTIVATED PARTIAL THROMBOPLASTIN TIME IN PPP BY COAGULATION ASSAY 30.1 Seconds Normal 25.0-35.0 [facility] Comment on above: Result Comment: Clin ical significance of the APTT is questionable in the presence of heparin. Performed By: #### L [id number] ####[facility] [employer])[address] [facility] [facility] [address] ACTIVATED PARTIAL THROMBOPLASTIN TIME IN PPP BY COAGULATION ASSAY 29.1 Seconds Normal 25.0-35.0 [facility] Comment on above: Order Comment: Pre-o p diagnosis:Aortic valve disorder [I35.9] Result Comment: Clin ical significance of the APTT is questionable in the presence of heparin. Performed By: #### L [id number] ####[facility] (BEAKER)[address] [place] [address] ACTIVATED PARTIAL THROMBOPLASTIN TIME IN PPP BY COAGULATION ASSAY 31.8 Seconds Normal 25.0-35.0 [facility] Comment on above: Result Comment: Clin ical significance of the APTT is questionable in the presence of heparin. Performed By: #### L [id number] ####[facility] ([facility]AKER)[address] [place] [address] ARTERIAL BLOOD GAS WITH IONI [employer] CALCIUMon 06-26-2023 Base excess Calc (Bld) [Moles/Vol] -3.3000 mmol/L Low -2.0-3.0 [facility] Comment on above: Performed By: #### L [id number] ####[facility] [id number] [place] [address] [place] CALCIUM IONIZED (MMOL/L) IN BLOOD 1.09 mmol/L Low 1.15-1.33 [facility] Comment on above: Performed By: #### L [id number] ####[facility] [id number] [place] [address] [place] CO2 (Bld) [Partial pressure] 35 mm[Hg] Normal 35-48 [facility] Comment on above: Performed By: #### L [id number] ####[facility] [id number] [place] [address] [place] FIO2 40 % Normal [facility] Comment on above: Performed By: #### L [id number] ####[facility] [id number] [place] [address] [place] HCO3 (Bld) [Moles/Vol] 21.2 mmol/L Normal 21.0-28.0 [facility] Comment on above: Performed By: #### L [id number] ####[facility] [id number] [place] [address] [place] Oxygen (Bld) [Partial pressure] 118 mm[Hg] High 83-100 [facility] Comment on above: Performed By: #### L [id number] ####[facility] [id number] [place] [address] [facility] OXYGEN SATURATION (%) IN ARTERIAL BLOOD 98.8 % High 94.0-98.0 [facility] Comment on above: Performed By: #### L [id number] ####[facility] [id number] [place] [address] [facility] PEEP 6 cmH2O Normal [facility] Comment on above: Performed By: #### L [id number] ####[facility] [id number] [place] [address] [facility] pH (Bld) 7.39 [pH] Normal 7.35-7.45 [facility] Comment on above: Performed By: #### L [id number] ####[facility] [id number] [place] [address] [facility] PRESSURE SUPPORT 12 Normal [facility] Comment on above: Performed By: #### L [id number] ####[facility] [id number] [place] [address] [facility] SOURCE OF OXYGEN Bi-PAP Normal [facility] Comment on above: Performed By: #### L [id number] ####[facility] [id number] [place] [address] [facility] Base excess Calc (Bld) [Moles/Vol] -5.8000 mmol/L Low -2.0-3.0 [facility] Comment on above: Performed By: #### L [id number] ####[facility] [id number] [place] [address] [facility] CALCIUM IONIZED (MMOL/L) IN BLOOD 1.19 mmol/L Normal 1.15-1.33 [facility] Comment on above: Performed By: #### L [id number] ####[facility] [id number] [place] [address] [facility] CO2 (Bld) [Partial pressure] 44 mm[Hg] Normal 35-48 [facility] Comment on above: Performed By: #### L [id number] ####[facility] [id number] [place] [address] [facility] FIO2 40 % Normal [facility] Comment on above: Performed By: #### L [id number] ####[facility] [id number] [place] [address] [facility] HCO3 (Bld) [Moles/Vol] 20.7 mmol/L Low 21.0-28.0 [facility] Comment on above: Performed By: #### L [id number] ####[facility] RES[facility] [id number] [place] [address] [facility] Oxygen (Bld) [Partial pressure] 102 mm[Hg] High 83-100 [facility] Comment on above: Performed By: #### L [id number] ####[facility] RES[facility] [id number] [place] [address] [facility] OXYGEN SATURATION (%) IN ARTERIAL BLOOD 99.5 % High 94.0-98.0 [facility] Comment on above: Performed By: #### L [id number] ####[facility] RES[facility] [id number] [place] [address] [facility] PEEP 6 cmH2O Normal [facility] Comment on above: Performed By: #### L [id number] ####[facility] [id number] [place] [address] [facility] pH (Bld) 7.28 [pH] Low 7.35-7.45 [facility] Comment on above: Performed By: #### L [id number] ####[facility] RES[facility] [id number] [place] [address] [facility] PRESSURE SUPPORT 12 Normal [facility] Comment on above: Performed By: #### L [id number] ####[facility] RES[facility] [id number] [place] [address] [facility] SOURCE OF OXYGEN Bi-PAP Normal [facility] Comment on above: Performed By: #### L [id number] ####[facility] RES[facility] [id number] [place] [address] [facility] BASIC METABOLIC PANELon 03-2 Anion gap [Moles/Vol] 10 mmol/L Normal 7-20 [facility] Comment on above: Performed By: #### L [id number] ####[facility] [place] [address] Calcium [Mass/Vol] 8.1 mg/dL Low 8.6-10.3 [facility] Comment on above: Performed By: #### L [id number] ####[facility] ([facility] [place] [address] Chloride [Moles/Vol] 108 mmol/L High 98-107 [facility] Comment on above: Performed By: #### L [id number] ####[facility] ([facility])[address] [place] [address] CO2 [Moles/Vol] 24 mmol/L Normal 21-31 [facility] Comment on above: Performed By: #### L [id number] ####[facility] ([facility])[address] [place] [address] Creatinine [Mass/Vol] 0.72 mg/dL Normal 0.70-1.30 [facility] Comment on above: Performed By: #### L [id number] ####[facility] ([facility])[address] [place] [address] GLOMERULAR FILTRATION RATE ML/MIN/1.73 SQ M.PREDICTED 111.3 mL/min/1.73m*2 Normal >60.0 [facility] Comment on above: Result Comment: [facility]???s estimated glomerular filtration rate (eGFR) [...] of individuals. Performed By: #### L [id number] ####[facility] ([facility])[address] [place] [address] Glucose [Mass/Vol] 151 mg/dL High 70-100 [facility] Comment on above: Performed By: #### L [id number] ####[facility] ([facility])[address] [place] [address] Potassium [Moles/Vol] 4.1 mmol/L Normal 3.5-5.1 [facility] Comment on above: Performed By: #### L [id number] ####[facility] ([facility])[address] [place] [address] Sodium [Moles/Vol] 138 mmol/L Normal 136-145 [facility] Comment on above: Performed By: #### L [id number] ####[facility] ([facility])[address] [place] [address] Urea nitrogen [Mass/Vol] 11 mg/dL Normal 7-25 [facility] Comment on above: Performed By: #### L [id number] ####[facility] ([facility])[address] [place] [address] UREA NITROGEN/CREATININE (MASS RATIO) IN SER/PLAS 15.3 Normal [facility] Comment on above: Performed By: #### L [id number] ####[facility] ([facility])[address] [place] [address] Anion gap [Moles/Vol] 14 mmol/L Normal 7-20 [facility] Comment on above: Order Comment: Pre-o p diagnosis:Aortic valve disorder [I35.9] Performed By: #### L [id number] ####[facility] ([facility])[address] [place] [address] Calcium [Mass/Vol] 7.9 mg/dL Low 8.6-10.3 [facility] Comment on above: Order Comment: Pre-o p diagnosis:Aortic valve disorder [I35.9] Performed By: #### L [id number] ####[facility] ([facility])[address] [place] [address] Chloride [Moles/Vol] 107 mmol/L Normal 98-107 [facility] Comment on above: Order Comment: Pre-o p diagnosis:Aortic valve disorder [I35.9] Performed By: #### L [id number] ####[facility] ([facility])[address] [place] [address] CO2 [Moles/Vol] 21 mmol/L Normal 21-31 [facility] Comment on above: Order Comment: Pre-o p diagnosis:Aortic valve disorder [I35.9] Performed By: #### L [id number] ####[facility] ([facility])[address] [place] [address] Creatinine [Mass/Vol] 0.76 mg/dL Normal 0.70-1.30 [facility] Comment on above: Order Comment: Pre-o p diagnosis:Aortic valve disorder [I35.9] Performed By: #### L [id number] ####[facility] ([facility])[address] [place] [address] GLOMERULAR FILTRATION RATE ML/MIN/1.73 SQ M.PREDICTED 109.5 mL/min/1.73m*2 Normal >60.0 [facility] Comment on above: Order Comment: Pre-o p diagnosis:Aortic valve disorder [I35.9] Result Comment: [facility]???s estimated glomerular filtration rate (eGFR) [...] of individuals. Performed By: #### L [id number] ####[facility] ([facility])[address] [place] [address] Glucose [Mass/Vol] 194 mg/dL High 70-100 [facility] Comment on above: Order Comment: Pre-o p diagnosis:Aortic valve disorder [I35.9] Performed By: #### L [id number] ####[facility] [place] [address] Potassium [Moles/Vol] 3.9 mmol/L Normal 3.5-5.1 [facility] Comment on above: Order Comment: Pre-o p diagnosis:Aortic valve disorder [I35.9] Performed By: #### L [id number] ####[facility] ([facility])[address] [place] [address] Sodium [Moles/Vol] 138 mmol/L Normal 136-145 [facility] Comment on above: Order Comment: Pre-o p diagnosis:Aortic valve disorder [I35.9] Performed By: #### L [id number] ####[facility] ([facility])[address] [place] [address] Urea nitrogen [Mass/Vol] 11 mg/dL Normal 7-25 [facility] Comment on above: Order Comment: Pre-o p diagnosis:Aortic valve disorder [I35.9] Performed By: #### L [id number] ####[facility] ([facility])[address] [place] [address] UREA NITROGEN/CREATININE (MASS RATIO) IN SER/PLAS 14.5 Normal [facility] Comment on above: Order Comment: Pre-o p diagnosis:Aortic valve disorder [I35.9] Performed By: #### L [id number] ####[facility] ([facility])[address] [place] [address] CBCon 06-26-2023 Erythrocyte distribution width (RBC) [Ratio] 15.5 % High 11.5-15.0 [facility] Comment on above: Performed By: #### L [id number] ####[facility] ([facility])[address] [place] [address] ERYTHROCYTE MEAN CORPUSCULAR HEMOGLOBIN CONCENTRATION (G/DL) BY AUTOMATED 34.0 g/dL Normal 32.0-35.0 [facility] Comment on above: Performed By: #### L [id number] ####[facility] ([facility])[address] [place] [address] Hematocrit (Bld) [Volume fraction] 29.4 % Low 39.0-55.0 [facility] Comment on above: Performed By: #### L [id number] ####[facility] ([facility])[address] [place] [address] Hemoglobin (Bld) [Mass/Vol] 10.0 g/dL Low 13.0-17.0 [facility] Comment on above: Performed By: #### L [id number] ####[facility] ([facility])[address] [place] [address] IMMATURE PLATELET FRACTION % 3.8 % Normal 0.8-6.3 [facility] Comment on above: Performed By: #### L [id number] ####[facility] ([facility])[address] [place] [address] MCH (RBC) [Entitic mass] 29.6 pg Normal 27.0-33.0 [facility] Comment on above: Performed By: #### L [id number] ####[facility] [place] [address] MCV (RBC) [Entitic vol] 87.0 fL Normal 82.0-98.0 [facility] Comment on above: Performed By: #### L [id number] ####[facility] ([facility])[address] [place] [address] PLATELETS (10*3/UL) IN BLOOD AUTOMATED COUNT 108 10*3/uL Low 150-400 [facility] Comment on above: Performed By: #### L [id number] ####[facility] ([facility])[address] [place] [address] RBC (Bld) [#/Vol] 3.38 10*6/uL Low 4.20-5.70 [facility] Comment on above: Performed By: #### L [id number] ####[facility] ([facility])[address] [place] [address] WBC (Bld) [#/Vol] 6.87 10*3/uL Normal 4.00-10.60 [facility] Comment on above: Performed By: #### L [id number] ####[facility] ([facility] [place] [address] Erythrocyte distribution width (RBC) [Ratio] 15.3 % High 11.5-15.0 [facility] Comment on above: Order Comment: Pre-o p diagnosis:Aortic valve disorder [I35.9] Performed By: #### L [id number] ####[facility] ([facility])[address] [place] [address] ERYTHROCYTE MEAN CORPUSCULAR HEMOGLOBIN CONCENTRATION (G/DL) BY AUTOMATED 34.5 g/dL Normal 32.0-35.0 [facility] Comment on above: Order Comment: Pre-o p diagnosis:Aortic valve disorder [I35.9] Performed By: #### L [id number] ####[facility] ([facility])[address] [place] [address] Hematocrit (Bld) [Volume fraction] 29.3 % Low 39.0-55.0 [facility] Comment on above: Order Comment: Pre-o p diagnosis:Aortic valve disorder [I35.9] Performed By: #### L [id number] ####[facility] ([facility])[address] [place] [address] Hemoglobin (Bld) [Mass/Vol] 10.1 g/dL Low 13.0-17.0 [facility] Comment on above: Order Comment: Pre-o p diagnosis:Aortic valve disorder [I35.9] Performed By: #### L [id number] ####[facility] ([facility])[address] [place] [address] IMMATURE PLATELET FRACTION % 4.1 % Normal 0.8-6.3 [facility] Comment on above: Order Comment: Pre-o p diagnosis:Aortic valve disorder [I35.9] Performed By: #### L [id number] ####[facility] ([facility])[address] [place] [address] MCH (RBC) [Entitic mass] 29.9 pg Normal 27.0-33.0 [facility] Comment on above: Order Comment: Pre-o p diagnosis:Aortic valve disorder [I35.9] Performed By: #### L [id number] ####[facility] ([facility])[address] [place] [address] MCV (RBC) [Entitic vol] 86.7 fL Normal 82.0-98.0 [facility] Comment on above: Order Comment: Pre-o p diagnosis:Aortic valve disorder [I35.9] Performed By: #### L [id number] ####[facility] ([facility])[address] [place] [address] PLATELETS (10*3/UL) IN BLOOD AUTOMATED COUNT 135 10*3/uL Low 150-400 [facility] Comment on above: Order Comment: Pre-o p diagnosis:Aortic valve disorder [I35.9] Performed By: #### L [id number] ####[facility] ([facility])[address] [place] [address] RBC (Bld) [#/Vol] 3.38 10*6/uL Low 4.20-5.70 [facility] Comment on above: Order Comment: Pre-o p diagnosis:Aortic valve disorder [I35.9] Performed By: #### L [id number] ####[facility] ([facility])[address] [place] [address] WBC (Bld) [#/Vol] 9.24 10*3/uL Normal 4.00-10.60 [facility] Comment on above: Order Comment: Pre-o p diagnosis:Aortic valve disorder [I35.9] Performed By: #### L [id number] ####[facility] ([facility])[address] [place] [address] CBC WITH AUTO DIFFERENTIALon 06-26-2023 Basophils (Bld) [#/Vol] 0.04 10*3/uL Normal 0.00-0.20 [facility] Comment on above: Performed By: #### L [id number] ####[facility] ([facility])[address] [place] [address] Basophils/100 WBC (Bld) 0.8 % Normal 0.0-1.0 [facility] Comment on above: Performed By: #### L [id number] ####[facility] ([facility])[address] [place] [address] Eosinophils (Bld) [#/Vol] 0.28 10*3/uL Normal 0.00-0.50 [facility] Comment on above: Performed By: #### L [id number] ####[facility] ([facility])[address] [place] [address] Eosinophils/100 WBC (Bld) 5.9 % Normal 0.0-6.0 [facility] Comment on above: Performed By: #### L [id number] ####[facility] ([facility])[address] [place] [address] Erythrocyte distribution width (RBC) [Ratio] 15.9 % High 11.5-15.0 [facility] Comment on above: Performed By: #### L [id number] ####[facility] ([facility])[address] [place] [address] ERYTHROCYTE MEAN CORPUSCULAR HEMOGLOBIN CONCENTRATION (G/DL) BY AUTOMATED 33.7 g/dL Normal 32.0-35.0 [facility] Comment on above: Performed By: #### L [id number] ####[facility] ([facility])[address] [place] [address] Hematocrit (Bld) [Volume fraction] 32.6 % Low 39.0-55.0 [facility] Comment on above: Performed By: #### L [id number] ####[facility] ([facility])[address] [place] [address] Hemoglobin (Bld) [Mass/Vol] 11.0 g/dL Low 13.0-17.0 [facility] Comment on above: Performed By: #### L [id number] ####[facility] ([facility])[address] [place] [address] Immature granulocytes (Bld) [#/Vol] 0.01 10*3/uL Normal 0.00-0.20 [facility] Comment on above: Performed By: #### L [id number] ####[facility] ([facility])[address] [facility] [address] Immature granulocytes/100 WBC (Bld) 0.2 % Normal 0.0-1.0 [facility] Comment on above: Performed By: #### L [id number] ####[facility] ([facility])[address] [place] [address] Lymphocytes (Bld) [#/Vol] 0.86 10*3/uL Low 1.20-4.00 [facility] Comment on above: Performed By: #### L [id number] ####[facility] ([facility])[address] [place] [address] Lymphocytes/100 WBC (Bld) 18.3 % Low 20.0-45.0 [facility] Comment on above: Performed By: #### L [id number] ####[facility] ([facility])[address] [place] [address] MCH (RBC) [Entitic mass] 29.4 pg Normal 27.0-33.0 [facility] Comment on above: Performed By: #### L [id number] ####[facility] ([facility])[address] [facility] [address] MCV (RBC) [Entitic vol] 87.2 fL Normal 82.0-98.0 [facility] Comment on above: Performed By: #### L [id number] ####[facility] ([facility])[address] [facility] [facility] [place] [address] Monocytes (Bld) [#/Vol] 0.50 10*3/uL Normal 0.10-1.00 [facility] Comment on above: Performed By: #### L [id number] ####[facility] ([facility])[address] [facility] [facility] [address] Monocytes/100 WBC (Bld) 10.6 % Normal 5.0-12.0 [facility] Comment on above: Performed By: #### L [id number] ####[facility] ([facility])[address] [place] [address] Neutrophils (Bld) [#/Vol] 3.02 10*3/uL Normal 1.60-7.60 [facility] Comment on above: Performed By: #### L [id number] ####[facility] ([facility])[address] [place] [address] Neutrophils/100 WBC (Bld) 64.2 % Normal 40.0-72.0 [facility] Comment on above: Performed By: #### L [id number] ####[facility] ([facility])[address] [place] [address] NRBC (PER 100 WBCS) BY AUTOMATED COUNT 0.0 % Normal 0 [facility] Comment on above: Performed By: #### L [id number] ####[facility] ([facility])[address] [place] [address] PLATELETS (10*3/UL) IN BLOOD AUTOMATED COUNT 159 10*3/uL Normal 150-400 [facility] Comment on above: Performed By: #### L [id number] ####[facility] ([facility])[address] [place] [address] RBC (Bld) [#/Vol] 3.74 10*6/uL Low 4.20-5.70 [facility] Comment on above: Performed By: #### L [id number] ####[facility] ([facility])[address] [place], [place] [address] WBC (Bld) [#/Vol] 4.71 10*3/uL Normal 4.00-10.60 [facility] Comment on above: Performed By: #### L [id number] ####[facility] ([facility])[address] [place] [address] CO-OXIMETRYon 06-26-2023 CARBOXYHEMOGLOBIN/HE MOGLOBIN TOTAL % IN BLOOD 2.3 % Normal [facility] Comment on above: Performed By: #### L [id number] ####[facility] [id number] [place] [address] [place] Hemoglobin (Bld) [Mass/Vol] 9.5 g/dL Normal [facility] Comment on above: Performed By: #### L [id number] ####[facility] [id number] [place] [address] [place] METHEMOGLOBIN/100 IN BLOOD 0.5 % Normal 0.0-1.5 [facility] Comment on above: Performed By: #### L [id number] ####[facility] RESP[facility] [id number] [place] [address] [place] Oxygen saturation in Blood 61.9 % Normal [facility] Comment on above: Performed By: #### L [id number] ####[facility] RESP[facility] [id number] [place] [address] [place] OXYGENATED HEMOGLOBIN IN BLOOD 60.2 % Normal [facility] Comment on above: Performed By: #### L [id number] ####[facility] RESP[facility] [id number] [place] [address] [place] COMPREHENSIVE METABOLIC PANE Braulio 06-26-2023 Albumin [Mass/Vol] 4.1 g/dL Normal 3.5-5.7 [facility] Comment on above: Performed By: #### L [id number] ####[facility] ([facility])[address] [place] [address] ALP [Catalytic activity/Vol] 51 U/L Normal 34-104 [facility] Comment on above: Performed By: #### L [id number] ####[facility] ([facility])[address] [place] [address] ALT [Catalytic activity/Vol] 13 U/L Normal 7-52 [facility] Comment on above: Performed By: #### L [id number] ####[facility] ([facility])[address] [place] [address] Anion gap [Moles/Vol] 10 mmol/L Normal 7-20 [facility] Comment on above: Performed By: #### L [id number] ####[facility] ([facility])[address] [place] [address] AST [Catalytic activity/Vol] 12 U/L Low 13-39 [facility] Comment on above: Performed By: #### L [id number] ####[facility] ([facility])[address] [place] [address] Bilirubin [Mass/Vol] 0.9 mg/dL Normal 0.3-1.0 [facility] Comment on above: Performed By: #### L [id number] ####[facility] ([facility])[address] [place] [address] Calcium [Mass/Vol] 8.6 mg/dL Normal 8.6-10.3 [facility] Comment on above: Performed By: #### L [id number] ####[facility] ([facility])[address] [place] [address] Chloride [Moles/Vol] 104 mmol/L Normal 98-107 [facility] Comment on above: Performed By: #### L [id number] ####[facility] ([facility])[address] [place] [address] CO2 [Moles/Vol] 26 mmol/L Normal 21-31 [facility] Comment on above: Performed By: #### L [id number] ####[facility] ([facility])[address] [place] [address] Creatinine [Mass/Vol] 0.82 mg/dL Normal 0.70-1.30 [facility] Comment on above: Performed By: #### L [id number] ####[facility] ([facility])[address] [place] [address] GLOMERULAR FILTRATION RATE ML/MIN/1.73 SQ M.PREDICTED 107.0 mL/min/1.73m*2 Normal >60.0 [facility] Comment on above: Result Comment: [facility]???s estimated glomerular filtration rate (eGFR) [...] of individuals. Performed By: #### L [id number] ####[facility] ([facility])[address] [place] [address] Glucose [Mass/Vol] 97 mg/dL Normal 70-100 [facility] Comment on above: Performed By: #### L [id number] ####[facility] ([facility])[address] [place] [address] Potassium [Moles/Vol] 4.0 mmol/L Normal 3.5-5.1 [facility] Comment on above: Performed By: #### L [id number] ####[facility] ([facility])[address] [place] [address] Protein [Mass/Vol] 6.0 g/dL Normal 6.0-8.3 [facility] Comment on above: Performed By: #### L [id number] ####[facility] ([facility])[address] [place] [address] Sodium [Moles/Vol] 136 mmol/L Normal 136-145 [facility] Comment on above: Performed By: #### L [id number] ####[facility] ([facility])[address] [place] [address] Urea nitrogen [Mass/Vol] 12 mg/dL Normal 7-25 [facility] Comment on above: Performed By: #### L [id number] ####[facility] ([facility])[address] [place] [address] UREA NITROGEN/CREATININE (MASS RATIO) IN SER/PLAS 14.6 Normal [facility] Comment on above: Performed By: #### L [id number] ####[facility] ([facility])[address] [place] [address] CONSULTon 06-26-2023 CONSULT Normal [facility] DEVICE CULTUREon 06-26-2023 Bacteria identified Cx Nom (Unsp spec) No growth at 3 days Normal [facility] Comment on above: Order Comment: RIGHT ARM PICC LINE CULTURE Performed By: #### D EVICE CULTURE ####[facility] ([facility])[address] [place] [place] [address] FIBRINOGENon 06-26-2023 Magnesium [Mass/Vol] 402 mg/dL Normal 150-425 [facility] Comment on above: Order Comment: Pre-o p diagnosis:Aortic valve disorder [I35.9] Performed By: #### L [id number] ####[facility] [place] [address] HISTOLOGY - TISSUE EXAMon LAB AP CASE REPORT Normal [facility] Comment on above: Order Comment: Pre-o p diagnosis:Aortic valve disorder [I35.9] Result Comment: Surg ical Pathology Case: [id number] Provider: Paul George MD Collected: 06/26/2023 1153Ordering Location: [facility] Main Operating Room Received: 06/26/2023 1354Pathologist: LILIA Prakashpecimen: Other, AORTIC VALVE LEAFLET FOR HISTOLOGY Performed By: #### L [id number] ####[facility] ([facility])[address] [place] [address] LAB AP CLINICAL INFORMATION Normal [facility] Comment on above: Order Comment: Pre-o p diagnosis:Aortic valve disorder [I35.9] Result Comment: Post -Op [id number] - Aortic valve disorder [ICD-10-CM] Performed By: #### L [id number] ####[facility] ([facility])[address] [place] [address] LAB AP GROSS DESCRIPTION A. Other. Normal [facility] Comment on above: Order [...] identified. The specimen is serially sectioned and underwriting sales representative sections are submitted in 1 cassette.Nai Sheth, [employer] Jaspreet Chawla, [employer] Performed By: #### L [id number] ####[facility] ([facility])[address] [place] [address] LAB AP MICROSCOPIC DESCRIPTION Microscopic examination performed. [facility] Comment on above: Order Comment: Pre-o p diagnosis:Aortic valve disorder [I35.9] Performed By: #### L [id number] ####[facility] ([facility])[address] [place] [address] LAB AP REPORT FINAL DIAGNOSIS NARRATIVE [facility] Comment on above: Order Comment: Pre-o p diagnosis:Aortic valve disorder [I35.9] Result Comment: A. A ortic valve leaflet, removal:- Valvular tissue with fibrinoid necrosis and acute inflammation. Performed By: #### L [id number] ####[facility] ([facility])[address] [place] [address] LACTIC ACID WITH 4 HOUR REFL EXon 06-26-2023 LACTATE (MMOL/L) IN SER/PLAS 1.5 mmol/L Normal 0.5-2.2 [facility] Comment on above: Order Comment: Pre-o p diagnosis:Aortic valve disorder [I35.9] Performed By: #### L [id number] ####[facility] ([facility])[address] [place] [address] LACTATE (MMOL/L) IN SER/PLAS 3.1 mmol/L Critically high 0.5-2.2 [facility] Comment on above: Order Comment: Pre-o p diagnosis:Aortic valve disorder [I35.9] Performed By: #### L [id number] ####[facility] ([facility])[address] [place] [address] LACTIC ACID, PLASMAon 2023 LACTATE (MMOL/L) IN SER/PLAS 2.4 mmol/L High 0.5-2.2 [facility] Comment on above: Performed By: #### L [id number] ####[facility] ([facility])[address] [place] [address] MAGNESIUMon 06-26-2023 Magnesium [Mass/Vol] 2.4 mg/dL Normal 1.9-2.7 [facility] Comment on above: Performed By: #### L [id number] ####[facility] ([facility])[address] [place] [address] Magnesium [Mass/Vol] 2.6 mg/dL Normal 1.9-2.7 [facility] Comment on above: Order Comment: Pre-o p diagnosis:Aortic valve disorder [I35.9] Performed By: #### L [id number] ####[facility] ([facility])[address] [place] [address] Magnesium [Mass/Vol] 2.0 mg/dL Normal 1.9-2.7 [facility] Comment on above: Performed By: #### L [id number] ####[facility] ([facility])[address] [place] [address] OPNOTEon 06-26-2023 OPNOTE Normal [facility] PHOSPHORUSon 06-26-2023 Magnesium [Mass/Vol] 3.9 mg/dL Normal 2.5-5.0 [facility] Comment on above: Performed By: #### L [id number] ####[facility] ([facility])[address] [place] [address] Magnesium [Mass/Vol] 4.2 mg/dL Normal 2.5-5.0 [facility] Comment on above: Performed By: #### L [id number] ####[facility] ([facility])[address] [place] [address] POCT ACTIVATED CLOTTING TIME UNSOLICITED RESULTSon 06-26-2023 POC ACTIVATED CLOTTING TIME 143 sec Normal 82-152 [facility] Comment on above: Performed By: #### L [id number] ####[facility] ([facility])[address] [place] [address] POC ACTIVATED CLOTTING TIME 148 sec Normal 82-152 [facility] Comment on above: Performed By: #### L [id number] ####[facility] ([facility])[address] [place] [address] POC ACTIVATED CLOTTING TIME 473 sec High 82-152 [facility] Comment on above: Performed By: #### L [id number] ####[facility] ([facility])[address] [place] [address] POC ACTIVATED CLOTTING TIME 562 sec High 82-152 [facility] Comment on above: Performed By: #### L [id number] ####[facility] ([facility])[address] [place] [address] POC ACTIVATED CLOTTING TIME 602 sec High 82-152 [facility] Comment on above: Performed By: #### L [id number] ####[facility] ([facility])[address] [place] [address] POC ACTIVATED CLOTTING TIME 679 sec High 82-152 [facility] Comment on above: Performed By: #### L [id number] ####[facility] ([facility])[address] [place] [address] POC ACTIVATED CLOTTING TIME 772 sec High 82-152 [facility] Comment on above: Performed By: #### L [id number] ####[facility] (BEAKER)[address] [place] [address] POC ACTIVATED CLOTTING TIME 772 sec High 82-152 [facility] Comment on above: Performed By: #### L [id number] ####[facility] ([facility]AKER)[address] [place] [address] POC ACTIVATED CLOTTING TIME 701 sec High 82-152 [facility] Comment on above: Performed By: #### L [id number] ####[facility] ([facility])[address] [facility] [address] POC ACTIVATED CLOTTING TIME 154 sec High 82-152 [facility] Comment on above: Performed By: #### L [id number] ####[facility] ([facility])[address] [place] [address] POCT GLUCOSE METER UNSOLICIT ED RESULTSon 06-26-2023 Glucose [Mass/Vol] 132 mg/dL High 70-105 [facility] Comment on above: Order Comment: Waive d Testing in the ED is performed under the ED CLIA certificate #[id number]. Result Comment: [email or web address] gabo Performed By: #### L [id number] ####[facility] ([facility])[address] [place] [address] Glucose [Mass/Vol] 126 mg/dL High 70-105 [facility] Comment on above: Order Comment: Waive d Testing in the ED is performed under the ED CLIA certificate #[id number]. Result Comment: [email or web address] gabo Performed By: #### L [id number] ####[facility] ([facility])[address] [place] [address] Glucose [Mass/Vol] 135 mg/dL High 70-105 [facility] Comment on above: Order Comment: Waive d Testing in the ED is performed under the ED CLIA certificate #[id number]. Result Comment: pcar r Performed By: #### L [id number] ####[facility] ([facility])[address] [place] [address] Glucose [Mass/Vol] 131 mg/dL High 70-105 [facility] Comment on above: Order Comment: Waive d Testing in the ED is performed under the ED CLIA certificate #[id number]. Result Comment: [email or web address] Performed By: #### L [id number] ####[facility] ([facility])[address] [place] [address] POCT PERFUSION PANEL UNSOLIC ITED RESULTSon 06-26-2023 CO2 [Moles/Vol] 22.0 mmol/L Normal 21.0-29.0 [facility] Comment on above: Performed By: #### L [id number] ####[facility] (BEAKER)[address] [place] [address] Glucose [Mass/Vol] 197 mg/dL High 70-105 [facility] Comment on above: Performed By: #### L [id number] ####[facility] (BEAKER)[address] [place] [address] HCO3 (Bld) [Moles/Vol] 20.8 mmol/L Low 23.0-28.0 [facility] Comment on above: Performed By: #### L [id number] ####[facility] (BEAKER)[address] [place] [address] Hematocrit (Bld) [Volume fraction] 30 % Low 38-51 [facility] Comment on above: Performed By: #### L [id number] ####[facility] (BEAKER)[address] [place] [address] Hemoglobin (Bld) [Mass/Vol] 10.2 g/dL Low 12.0-17.0 [facility] Comment on above: Performed By: #### L [id number] ####[facility] (BEAKER)[address] [place] [address] POCT BASE EXCESS -4.0 mmol/L Low -2.0-3.0 [facility] Comment on above: Performed By: #### L [id number] ####[facility] (BEAKER)[address] [place] [address] POCT IONIZED CALCIUM 1.17 mmol/L Normal 1.12-1.32 [facility] Comment on above: Performed By: #### L [id number] ####[facility] ([facility])[address] [place] [address] POCT PCO2 36.5 mmHg Low 41.0-51.0 [facility] Comment on above: Performed By: #### L [id number] ####[facility] ([facility])[address] [place] [address] POCT PH 7.36 Normal 7.31-7.41 [facility] Comment on above: Performed By: #### L [id number] ####[facility] ([facility]ER)[address] [place] [address] POCT PO2 240 mmHg High 80-105 [facility] Comment on above: Performed By: #### L [id number] ####[facility] ([facility]ER)[address] [place] [address] POCT SO2 100 % High 95-98 [facility] Comment on above: Performed By: #### L [id number] ####[facility] ([facility]ER)[address] [place] [address] Potassium [Moles/Vol] 3.9 mmol/L Normal 3.5-4.9 [facility] Comment on above: Performed By: #### L [id number] ####[facility] (BE[facility]ER)[address] [place] [address] Sodium [Moles/Vol] 139 mmol/L Normal 138.0-146.0 [facility] Comment on above: Performed By: #### L [id number] ####[facility] ([facility]ER)[address] [place] [address] CO2 [Moles/Vol] 23.0 mmol/L Normal 21.0-29.0 [facility] Comment on above: Performed By: #### L [id number] ####[facility] (BE[facility]ER)[address] [place] [address] Glucose [Mass/Vol] 208 mg/dL High 70-105 [facility] Comment on above: Performed By: #### L [id number] ####[facility] (BEAKER)[address] [place] [address] HCO3 (Bld) [Moles/Vol] 21.6 mmol/L Low 23.0-28.0 [facility] Comment on above: Performed By: #### L [id number] ####[facility] ([facility] [place] [address] Hematocrit (Bld) [Volume fraction] 28 % Low 38-51 [facility] Comment on above: Performed By: #### L [id number] ####[facility] ([facility])[address] [place] [address] Hemoglobin (Bld) [Mass/Vol] 9.5 g/dL Low 12.0-17.0 [facility] Comment on above: Performed By: #### L [id number] ####[facility] ([facility])[address] [place] [address] POCT BASE EXCESS -4.0 mmol/L Low -2.0-3.0 [facility] Comment on above: Performed By: #### L [id number] ####[facility] ([facility])[address] [address] POCT IONIZED CALCIUM 1.22 mmol/L Normal 1.12-1.32 [facility] Comment on above: Performed By: #### L [id number] ####[facility] ([facility])[address] [place] [address] POCT PCO2 38.6 mmHg Low 41.0-51.0 [facility] Comment on above: Performed By: #### L [id number] ####[facility] [address] POCT PH 7.36 Normal 7.31-7.41 [facility] Comment on above: Performed By: #### L [id number] ####[facility] ([facility] [place] [address] POCT PO2 265 mmHg High 80-105 [facility] Comment on above: Performed By: #### L [id number] ####[facility] [place] [address] POCT SO2 100 % High 95-98 [facility] Comment on above: Performed By: #### L [id number] ####[facility] (BEAKER)[address] [place] [address] Potassium [Moles/Vol] 3.9 mmol/L Normal 3.5-4.9 [facility] Comment on above: Performed By: #### L [id number] ####[facility] (BEAKER)[address] [place] [address] Sodium [Moles/Vol] 137 mmol/L Low 138.0-146.0 [facility] Comment on above: Performed By: #### L [id number] ####[facility] (BEAKER)[address] [place] [address] CO2 [Moles/Vol] 25.0 mmol/L Normal 21.0-29.0 [facility] Comment on above: Performed By: #### L [id number] ####[facility] (BEAKER)[address] [place] [address] Glucose [Mass/Vol] 216 mg/dL High 70-105 [facility] Comment on above: Performed By: #### L [id number] ####[facility] (BE[facility]ER)[address] [place] [address] HCO3 (Bld) [Moles/Vol] 23.3 mmol/L Normal 23.0-28.0 [facility] Comment on above: Performed By: #### L [id number] ####[facility] (BE[facility]ER)[address] [place] [address] Hematocrit (Bld) [Volume fraction] 28 % Low 38-51 [facility] Comment on above: Performed By: #### L [id number] ####[facility] (BE[facility]ER)[address] [place] [address] Hemoglobin (Bld) [Mass/Vol] 9.5 g/dL Low 12.0-17.0 [facility] Comment on above: Performed By: #### L [id number] ####[facility] (BEAKER)[address] [place] [address] POCT BASE EXCESS -3.0 mmol/L Low -2.0-3.0 [facility] Comment on above: Performed By: #### L [id number] ####[facility] ([facility]ER)[address] [place] [address] POCT IONIZED CALCIUM 1.29 mmol/L Normal 1.12-1.32 [facility] Comment on above: Performed By: #### L [id number] ####[facility] (BE[facility]ER)[address] [place] [address] POCT PCO2 46.6 mmHg Normal 41.0-51.0 [facility] Comment on above: Performed By: #### L [id number] ####[facility] (BE[facility]ER)[address] [place] [address] POCT PH 7.31 Normal 7.31-7.41 [facility] Comment on above: Performed By: #### L [id number] ####[facility] ([facility]ER)[address] [place] [address] POCT PO2 348 mmHg High 80-105 [facility] Comment on above: Performed By: #### L [id number] ####[facility] ([facility]ER)[address] [place] [address] POCT SO2 100 % High 95-98 [facility] Comment on above: Performed By: #### L [id number] ####[facility] ([facility]ER)[address] [place] [address] Potassium [Moles/Vol] 4.7 mmol/L Normal 3.5-4.9 [facility] Comment on above: Performed By: #### L [id number] ####[facility] (BE[facility]ER)[address] [place] [address] Sodium [Moles/Vol] 136 mmol/L Low 138.0-146.0 [facility] Comment on above: Performed By: #### L [id number] ####[facility] (BE[facility]ER)[address] [place] [address] CO2 [Moles/Vol] 26.0 mmol/L Normal 21.0-29.0 [facility] Comment on above: Performed By: #### L [id number] ####[facility] ([facility]ER)[address] [place] [address] Glucose [Mass/Vol] 173 mg/dL High 70-105 [facility] Comment on above: Performed By: #### L [id number] ####[facility] (BE[facility]ER)[address] [place] [address] HCO3 (Bld) [Moles/Vol] 24.8 mmol/L Normal 23.0-28.0 [facility] Comment on above: Performed By: #### L [id number] ####[facility] (BE[facility]ER)[address] [place] [address] Hematocrit (Bld) [Volume fraction] 30 % Low 38-51 [facility] Comment on above: Performed By: #### L [id number] ####[facility] (BE[facility]ER)[address] [place] [address] Hemoglobin (Bld) [Mass/Vol] 10.2 g/dL Low 12.0-17.0 [facility] Comment on above: Performed By: #### L [id number] ####[facility] (BE[facility]ER)[address] [place] [address] POCT BASE EXCESS 0.0 mmol/L Normal -2.0-3.0 [facility] Comment on above: Performed By: #### L [id number] ####[facility] (BE[facility]ER)[address] [place] [address] POCT IONIZED CALCIUM 1.57 mmol/L Critically high 1.12-1.32 [facility] Comment on above: Performed By: #### L [id number] ####[facility] ([facility]ER)[address] [place] [address] POCT PCO2 40.5 mmHg Low 41.0-51.0 [facility] Comment on above: Performed By: #### L [id number] ####[facility] (BE[facility]ER)[address] [place] [address] POCT PH 7.40 Normal 7.31-7.41 [facility] Comment on above: Performed By: #### L [id number] ####[facility] (BE[facility]ER)[address] [place] [address] POCT PO2 321 mmHg High 80-105 [facility] Comment on above: Performed By: #### L [id number] ####[facility] (BEAKER)[address] [place] [address] POCT SO2 100 % High 95-98 [facility] Comment on above: Performed By: #### L [id number] ####[facility] (BEAKER)[address] [place] [address] Potassium [Moles/Vol] 5.4 mmol/L High 3.5-4.9 [facility] Comment on above: Performed By: #### L [id number] ####[facility] (BE[facility]ER)[address] [place] [address] Sodium [Moles/Vol] 134 mmol/L Low 138.0-146.0 [facility] Comment on above: Performed By: #### L [id number] ####[facility] (BEAKER)[address] [place] [address] CO2 [Moles/Vol] 25.0 mmol/L Normal 21.0-29.0 [facility] Comment on above: Performed By: #### L [id number] ####[facility] (BE[facility]ER)[address] [place] [address] Glucose [Mass/Vol] 171 mg/dL High 70-105 [facility] Comment on above: Performed By: #### L [id number] ####[facility] (BE[facility]ER)[address] [place] [address] HCO3 (Bld) [Moles/Vol] 23.6 mmol/L Normal 23.0-28.0 [facility] Comment on above: Performed By: #### L [id number] ####[facility] [address] Hematocrit (Bld) [Volume fraction] 30 % Low 38-51 [facility] Comment on above: Performed By: #### L [id number] ####[facility] ([facility])[address] [address] Hemoglobin (Bld) [Mass/Vol] 10.2 g/dL Low 12.0-17.0 [facility] Comment on above: Performed By: #### L [id number] ####[facility] ([facility])[address] [address] POCT BASE EXCESS -2.0 mmol/L Normal -2.0-3.0 [facility] Comment on above: Performed By: #### L [id number] ####[facility] ([facility])[address] [address] POCT IONIZED CALCIUM 1.12 mmol/L Normal 1.12-1.32 [facility] Comment on above: Performed By: #### L [id number] ####[facility] ([facility])[address] [address] POCT PCO2 44.0 mmHg Normal 41.0-51.0 [facility] Comment on above: Performed By: #### L [id number] ####[facility] [address] POCT PH 7.34 Normal 7.31-7.41 [facility] Comment on above: Performed By: #### L [id number] ####[facility] [address] POCT PO2 390 mmHg High 80-105 [facility] Comment on above: Performed By: #### L [id number] ####[facility] [address] POCT SO2 100 % High 95-98 [facility] Comment on above: Performed By: #### L [id number] ####[facility] (BEAKER)[address] [place] [address] Potassium [Moles/Vol] 5.4 mmol/L High 3.5-4.9 [facility] Comment on above: Performed By: #### L [id number] ####[facility] (BEAKER)[address] [place] [address] Sodium [Moles/Vol] 136 mmol/L Low 138.0-146.0 [facility] Comment on above: Performed By: #### L [id number] ####[facility] (BE[facility]ER)[address] [place] [address] CO2 [Moles/Vol] 25.0 mmol/L Normal 21.0-29.0 [facility] Comment on above: Performed By: #### L [id number] ####[facility] (BE[facility]ER)[address] [place] [address] Glucose [Mass/Vol] 184 mg/dL High 70-105 [facility] Comment on above: Performed By: #### L [id number] ####[facility] ([facility]ER)[address] [place] [address] HCO3 (Bld) [Moles/Vol] 23.7 mmol/L Normal 23.0-28.0 [facility] Comment on above: Performed By: #### L [id number] ####[facility] ([facility]ER)[address] [place] [address] Hematocrit (Bld) [Volume fraction] 33 % Low 38-51 [facility] Comment on above: Performed By: #### L [id number] ####[facility] (BE[facility]ER)[address] [place] [address] Hemoglobin (Bld) [Mass/Vol] 11.2 g/dL Low 12.0-17.0 [facility] Comment on above: Performed By: #### L [id number] ####[facility] (BE[facility]ER)[address] [place] [address] POCT BASE EXCESS -3.0 mmol/L Low -2.0-3.0 [facility] Comment on above: Performed By: #### L [id number] ####[facility] (BE[facility]ER)[address] [place] [address] POCT IONIZED CALCIUM 1.09 mmol/L Low 1.12-1.32 [facility] Comment on above: Performed By: #### L [id number] ####[facility] (BE[facility]ER)[address] [place] [address] POCT PCO2 46.1 mmHg Normal 41.0-51.0 [facility] Comment on above: Performed By: #### L [id number] ####[facility] (BE[facility]ER)[address] [place] [address] POCT PH 7.32 Normal 7.31-7.41 [facility] Comment on above: Performed By: #### L [id number] ####[facility] (BE[facility]ER)[address] [place] [address] POCT PO2 400 mmHg High 80-105 [facility] Comment on above: Performed By: #### L [id number] ####[facility] (BEAKER)[address] [place] [address] POCT SO2 100 % High 95-98 [facility] Comment on above: Performed By: #### L [id number] ####[facility] ([facility]ER)[address] [place] [address] Potassium [Moles/Vol] 4.5 mmol/L Normal 3.5-4.9 [facility] Comment on above: Performed By: #### L [id number] ####[facility] (BE[facility]ER)[address] [place] [address] Sodium [Moles/Vol] 136 mmol/L Low 138.0-146.0 [facility] Comment on above: Performed By: #### L [id number] ####[facility] (BE[facility]ER)[address] [place] [address] CO2 [Moles/Vol] 25.0 mmol/L Normal 21.0-29.0 [facility] Comment on above: Performed By: #### L [id number] ####[facility] (BE[facility]ER)[address] [place] [address] Glucose [Mass/Vol] 193 mg/dL High 70-105 [facility] Comment on above: Performed By: #### L [id number] ####[facility] (BE[facility]ER)[address] [place] [address] HCO3 (Bld) [Moles/Vol] 23.6 mmol/L Normal 23.0-28.0 [facility] Comment on above: Performed By: #### L [id number] ####[facility] (BE[facility]ER)[address] [place] [address] Hematocrit (Bld) [Volume fraction] 26 % Low 38-51 [facility] Comment on above: Performed By: #### L [id number] ####[facility] ([facility]ER)[address] [place] [address] Hemoglobin (Bld) [Mass/Vol] 8.8 g/dL Low 12.0-17.0 [facility] Comment on above: Performed By: #### L [id number] ####[facility] ([facility])[address] [place] [address] POCT BASE EXCESS -2.0 mmol/L Normal -2.0-3.0 [facility] Comment on above: Performed By: #### L [id number] ####[facility] (BEAKER)[address] [place] [address] POCT IONIZED CALCIUM 1.06 mmol/L Low 1.12-1.32 [facility] Comment on above: Performed By: #### L [id number] ####[facility] ([facility])[address] [place] [address] POCT PCO2 40.9 mmHg Low 41.0-51.0 [facility] Comment on above: Performed By: #### L [id number] ####[facility] (BE[facility]ER)[address] [place] [address] POCT PH 7.37 Normal 7.31-7.41 [facility] Comment on above: Performed By: #### L [id number] ####[facility] ([facility]ER)[address] [place] [address] POCT PO2 510 mmHg High 80-105 [facility] Comment on above: Performed By: #### L [id number] ####[facility] (BEAKER)[address] [place] [address] POCT SO2 100 % High 95-98 [facility] Comment on above: Performed By: #### L [id number] ####[facility] (BE[facility]ER)[address] [place] [address] Potassium [Moles/Vol] 4.4 mmol/L Normal 3.5-4.9 [facility] Comment on above: Performed By: #### L [id number] ####[facility] ([facility]ER)[address] [place] [address] Sodium [Moles/Vol] 135 mmol/L Low 138.0-146.0 [facility] Comment on above: Performed By: #### L [id number] ####[facility] (BE[facility]ER)[address] [place] [address] CO2 [Moles/Vol] 24.0 mmol/L Normal 21.0-29.0 [facility] Comment on above: Performed By: #### L [id number] ####[facility] (BEAKER)[address] [place] [address] Glucose [Mass/Vol] 185 mg/dL High 70-105 [facility] Comment on above: Performed By: #### L [id number] ####[facility] (BE[facility]ER)[address] [place] [address] HCO3 (Bld) [Moles/Vol] 22.7 mmol/L Low 23.0-28.0 [facility] Comment on above: Performed By: #### L [id number] ####[facility] ([facility])[address] [address] Hematocrit (Bld) [Volume fraction] 26 % Low 38-51 [facility] Comment on above: Performed By: #### L [id number] ####[facility] ([facility])[address] [address] Hemoglobin (Bld) [Mass/Vol] 8.8 g/dL Low 12.0-17.0 [facility] Comment on above: Performed By: #### L [id number] ####[facility] ([facility])[address] [address] POCT BASE EXCESS -2.0 mmol/L Normal -2.0-3.0 [facility] Comment on above: Performed By: #### L [id number] ####[facility] ([facility])[address] [address] POCT IONIZED CALCIUM 1.10 mmol/L Low 1.12-1.32 [facility] Comment on above: Performed By: #### L [id number] ####[facility] ([facility])[address] [address] POCT PCO2 37.2 mmHg Low 41.0-51.0 [facility] Comment on above: Performed By: #### L [id number] ####[facility] ([facility])[address] [address] POCT PH 7.39 Normal 7.31-7.41 [facility] Comment on above: Performed By: #### L [id number] ####[facility] ([facility])[address] [address] POCT PO2 485 mmHg High 80-105 [facility] Comment on above: Performed By: #### L [id number] ####[facility] ([facility])[address] [place] [address] POCT SO2 100 % High 95-98 [facility] Comment on above: Performed By: #### L [id number] ####[facility] ([facility])[address] [address] Potassium [Moles/Vol] 3.7 mmol/L Normal 3.5-4.9 [facility] Comment on above: Performed By: #### L [id number] ####[facility] ([facility])[address] [place] [address] Sodium [Moles/Vol] 136 mmol/L Low 138.0-146.0 [facility] Comment on above: Performed By: #### L [id number] ####[facility] ([facility])[address] [address] CO2 [Moles/Vol] 23.0 mmol/L Normal 21.0-29.0 [facility] Comment on above: Performed By: #### L [id number] ####[facility] ([facility])[address] [place], [place] [address] Glucose [Mass/Vol] 132 mg/dL High 70-105 [facility] Comment on above: Performed By: #### L [id number] ####[facility] ([facility])[address] [address] HCO3 (Bld) [Moles/Vol] 21.5 mmol/L Low 23.0-28.0 [facility] Comment on above: Performed By: #### L [id number] ####[facility] ([facility])[address] [place] [address] Hematocrit (Bld) [Volume fraction] 29 % Low 38-51 [facility] Comment on above: Performed By: #### L [id number] ####[facility] ([facility])[address] [place] [address] Hemoglobin (Bld) [Mass/Vol] 9.9 g/dL Low 12.0-17.0 [facility] Comment on above: Performed By: #### L [id number] ####[facility] ([facility])[address] [place] [address] POCT BASE EXCESS -4.0 mmol/L Low -2.0-3.0 [facility] [facility] Comment on above: Performed By: #### L [id number] ####[facility] (BEAKER)[address] [place] [address] POCT IONIZED CALCIUM 1.27 mmol/L Normal 1.12-1.32 [facility] Comment on above: Performed By: #### L [id number] ####[facility] (BEAKER)[address] [place] [address] POCT PCO2 38.3 mmHg Low 41.0-51.0 [facility] Comment on above: Performed By: #### L [id number] ####[facility] ([facility] [place] [address] POCT PH 7.36 Normal 7.31-7.41 [facility] Comment on above: Performed By: #### L [id number] ####[facility] ([facility] [place] [address] POCT PO2 214 mmHg High 80-105 [facility] Comment on above: Performed By: #### L [id number] ####[facility] ([facility] [place] [address] POCT SO2 100 % High 95-98 [facility] Comment on above: Performed By: #### L [id number] ####[facility] (BEAKER)[address] [place] [address] Potassium [Moles/Vol] 3.9 mmol/L Normal 3.5-4.9 [facility] Comment on above: Performed By: #### L [id number] ####[facility] (BEAKER)[address] [place] [address] Sodium [Moles/Vol] 137 mmol/L Low 138.0-146.0 [facility] Comment on above: Performed By: #### L [id number] ####[facility] (BEAKER)[address] [place] [address] POCT BASE EXCESS Normal [facility] Comment on above: Performed By: #### L [id number] ####[facility] (BEAKER)[address] [place] [address] POCT GLUCOSE Normal [facility] Comment on above: Performed By: #### L [id number] ####[facility] ([facility] [place] [address] POCT HCO3 Normal [facility] Comment on above: Performed By: #### L [id number] ####[facility] ([facility])[address] [place] [address] POCT HEMATOCRIT Normal [facility] Comment on above: Performed By: #### L [id number] ####[facility] ([facility])[address] [place] [address] POCT HEMOGLOBIN Normal [facility] Comment on above: Performed By: #### L [id number] ####[facility] ([facility])[address] [place] [address] POCT IONIZED CALCIUM Normal [facility] Comment on above: Performed By: #### L [id number] ####[facility] ([facility] [place] [address] POCT PCO2 Normal [facility] Comment on above: Performed By: #### L [id number] ####[facility] (BEAKER)[address] [place] [address] POCT PH Normal [facility] Comment on above: Performed By: #### L [id number] ####[facility] (BEAKER)[address] [place] [address] POCT PO2 53 mmHg Low 80-105 [facility] Comment on above: Performed By: #### L [id number] ####[facility] (BEAKER)[address] [place] [address] POCT POTASSIUM Normal [facility] Comment on above: Performed By: #### L [id number] ####[facility] (BEAKER)[address] [place] [address] POCT SO2 85 % Low 95-98 [facility] Comment on above: Performed By: #### L [id number] ####[facility] (BEAKER)[address] [place] [address] POCT SODIUM Normal [facility] Comment on above: Performed By: #### L [id number] ####[facility] (BEAKER)[address] [place] [address] POCT TOTAL CO2 Normal [facility] Comment on above: Performed By: #### L [id number] ####[facility] (BEAKER)[address] [place] [address] CO2 [Moles/Vol] 25.0 mmol/L Normal 21.0-29.0 [facility] Comment on above: Performed By: #### L [id number] ####[facility] (BEAKER)[address] [place] [address] Glucose [Mass/Vol] 114 mg/dL High 70-105 [facility] Comment on above: Performed By: #### L [id number] ####[facility] (BEAKER)[address] [place] [address] HCO3 (Bld) [Moles/Vol] 23.4 mmol/L Normal 23.0-28.0 [facility] Comment on above: Performed By: #### L [id number] ####[facility] (BEAKER)[address] [place] [address] Hematocrit (Bld) [Volume fraction] 30 % Low 38-51 [facility] Comment on above: Performed By: #### L [id number] ####[facility] (BEAKER)[address] [place] [address] Hemoglobin (Bld) [Mass/Vol] 10.2 g/dL Low 12.0-17.0 [facility] Comment on above: Performed By: #### L [id number] ####[facility] (BEAKER)[address] [place] [address] POCT BASE EXCESS -2.0 mmol/L Normal -2.0-3.0 [facility] Comment on above: Performed By: #### L [id number] ####[facility] (BEAKER)[address] [place] [address] POCT IONIZED CALCIUM 1.19 mmol/L Normal 1.12-1.32 [facility] Comment on above: Performed By: #### L [id number] ####[facility] (BEAKER)[address] [place] [address] POCT PCO2 40.0 mmHg Low 41.0-51.0 [facility] Comment on above: Performed By: #### L [id number] ####[facility] (BEAKER)[address] [place] [address] POCT PH 7.38 Normal 7.31-7.41 [facility] Comment on above: Performed By: #### L [id number] ####[facility] (BEAKER)[address] [place] [address] POCT PO2 159 mmHg High 80-105 [facility] Comment on above: Performed By: #### L [id number] ####[facility] (BEAKER)[address] [place] [address] POCT SO2 99 % High 95-98 [facility] Comment on above: Performed By: #### L [id number] ####[facility] (BEAKER)[address] [place] [address] Potassium [Moles/Vol] 4.1 mmol/L Normal 3.5-4.9 [facility] Comment on above: Performed By: #### L [id number] ####[facility] (BEAKER)[address] [place] [address] Sodium [Moles/Vol] 137 mmol/L Low 138.0-146.0 [facility] Comment on above: Performed By: #### L [id number] ####[facility] (BEAKER)[address] [place] [address] PROTIME-INRon 06-26-2023 INR IN PPP BY COAGULATION ASSAY 1.29 High 0.90-1.10 [facility] Comment on above: Result Comment: [facility] P RECOMMENDED INR FOR WARFARIN THERAPY CONDITION INRPROPHYLAXIS OF VENOUS THROMBOSIS 2-3(HIGH-RISK SURGERY)TREATMENT OF VENOUS THROMBOSIS 2-3TREATMENT OF PULMONARY EMBOLISM 2-3PREVENTION OF SYSTEMIC EMBOLISM: 2-3 ACUTE MYOCARDIAL INFARCTION TISSUE HEART VALVES VALVULAR HEART DISEASE ATRIAL FIBRILLATION RECURRENT SYSTEMIC EMBOLISMMECHANICAL HEART VALVE 2.5-3.5 FROM: ORAL ANTICOAGULANTS. MECHANISM OF ACTION, CLINICAL EFFECTIVENESS, AND OPTIMAL THERAPEUTIC RANGE. CHEST 1995;108:231S-246S. Performed By: #### L [id number] ####[facility] (BEAKER)[address] [place] [address] PROTHROMBIN TIME (PT) IN PPP BY COAGULATION ASSAY 16.1 Seconds High 12.3-14.8 [facility] Comment on above: Performed By: #### L [id number] ####[facility] (BEAKER)[address] [place] [address] INR IN PPP BY COAGULATION ASSAY 1.37 High 0.90-1.10 [facility] Comment on above: Order Comment: Pre-o p diagnosis:Aortic valve disorder [I35.9] Result Comment: [facility] P RECOMMENDED INR FOR WARFARIN THERAPY CONDITION INRPROPHYLAXIS OF VENOUS THROMBOSIS 2-3(HIGH-RISK SURGERY)TREATMENT OF VENOUS THROMBOSIS 2-3TREATMENT OF PULMONARY EMBOLISM 2-3PREVENTION OF SYSTEMIC EMBOLISM: 2-3 ACUTE MYOCARDIAL INFARCTION TISSUE HEART VALVES VALVULAR HEART DISEASE ATRIAL FIBRILLATION RECURRENT SYSTEMIC EMBOLISMMECHANICAL HEART VALVE 2.5-3.5 FROM: ORAL ANTICOAGULANTS. MECHANISM OF ACTION, CLINICAL EFFECTIVENESS, AND OPTIMAL THERAPEUTIC RANGE. CHEST 1995;108:231S-246S. Performed By: #### L [id number] ####[facility] [employer])[address] [place] [address] PROTHROMBIN TIME (PT) IN PPP BY COAGULATION ASSAY 16.9 Seconds High 12.3-14.8 [facility] Comment on above: Order Comment: Pre-o p diagnosis:Aortic valve disorder [I35.9] Performed By: #### L [id number] ####[facility] ([employer])[address] [place] [address] INR IN PPP BY COAGULATION ASSAY 1.06 Normal 0.90-1.10 [facility] Comment on above: Result Comment: [...] CHEST 1995;108:231S-246S. Performed By: #### L [id number] ####[facility] ([employer])[address] [place] [address] PROTHROMBIN TIME (PT) IN PPP BY COAGULATION ASSAY 13.8 Seconds Normal 12.3-14.8 [facility] Comment on above: Performed By: #### L [id number] ####[facility] ([facility])[address] [place] [address] TISSUE CULTUREon 06-26-2023 Bacteria identified Cx Nom (Unsp spec) No growth at 5 days Normal [facility] Comment on above: Order Comment: Pre-o p diagnosis:Aortic valve disorder [I35.9] Performed By: #### L [id number] ####[facility] ([facility])[address] [place] [address] GRAM STAIN RESULT Normal [facility] Comment on above: Order Comment: Pre-o p diagnosis:Aortic valve disorder [I35.9] Result Comment: No p olymorphonuclear leukocytes seenNo organisms seen Performed By: #### L [id number] ####[facility] ([facility])[address] [place] [address] 30on 06-25-2023 30 Normal [facility] ANESon 06-25-2023 ANES Normal [facility] APTTon 06-25-2023 ACTIVATED PARTIAL THROMBOPLASTIN TIME IN PPP BY COAGULATION ASSAY 31.3 Seconds Normal 25.0-35.0 [facility] Comment on above: Result Comment: Clin ical significance of the APTT is questionable in the presence of heparin. Performed By: #### L [id number] ####[facility] ([employer])[address] [place] [address] CBC WITH AUTO DIFFERENTIALon 06-25-2023 Basophils (Bld) [#/Vol] 0.04 10*3/uL Normal 0.00-0.20 [facility] Comment on above: Performed By: #### L [id number] ####[facility] (BEAKER)[address] [place] [address] Basophils/100 WBC (Bld) 0.8 % Normal 0.0-1.0 [facility] Comment on above: Performed By: #### L [id number] ####[facility] (BEAKER)[address] [place] [address] Eosinophils (Bld) [#/Vol] 0.38 10*3/uL Normal 0.00-0.50 [facility] Comment on above: Performed By: #### L [id number] ####[facility] (BEAKER)[address] [place] [address] Eosinophils/100 WBC (Bld) 7.7 % High 0.0-6.0 [facility] Comment on above: Performed By: #### L [id number] ####[facility] (BEAKER)[address] [place] [address] Erythrocyte distribution width (RBC) [Ratio] 16.0 % High 11.5-15.0 [facility] Comment on above: Performed By: #### L [id number] ####[facility] (BEAKER)[address] [place] [address] ERYTHROCYTE MEAN CORPUSCULAR HEMOGLOBIN CONCENTRATION (G/DL) BY AUTOMATED 34.0 g/dL Normal 32.0-35.0 [facility] Comment on above: Performed By: #### L [id number] ####[facility] (BEAKER)[address] [place] [address] Hematocrit (Bld) [Volume fraction] 32.6 % Low 39.0-55.0 [facility] Comment on above: Performed By: #### L [id number] ####[facility] (BEAKER)[address] [place] [address] Hemoglobin (Bld) [Mass/Vol] 11.1 g/dL Low 13.0-17.0 [facility] Comment on above: Performed By: #### L [id number] ####[facility] ([facility])[address] [place] [address] Immature granulocytes (Bld) [#/Vol] 0.02 10*3/uL Normal 0.00-0.20 [facility] Comment on above: Performed By: #### L [id number] ####[facility] ([facility])[address] [place] [address] Immature granulocytes/100 WBC (Bld) 0.4 % Normal 0.0-1.0 [facility] Comment on above: Performed By: #### L [id number] ####[facility] ([facility])[address] [place] [address] Lymphocytes (Bld) [#/Vol] 0.80 10*3/uL Low 1.20-4.00 [facility] Comment on above: Performed By: #### L [id number] ####[facility] ([facility])[address] [place] [address] Lymphocytes/100 WBC (Bld) 16.2 % Low 20.0-45.0 [facility] Comment on above: Performed By: #### L [id number] ####[facility] ([facility])[address] [place] [address] MCH (RBC) [Entitic mass] 29.8 pg Normal 27.0-33.0 [facility] Comment on above: Performed By: #### L [id number] ####[facility] ([facility] [place] [address] MCV (RBC) [Entitic vol] 87.4 fL Normal 82.0-98.0 [facility] Comment on above: Performed By: #### L [id number] ####[facility] ([facility] [place] [address] Monocytes (Bld) [#/Vol] 0.42 10*3/uL Normal 0.10-1.00 [facility] Comment on above: Performed By: #### L [id number] ####[facility] (BEAKER)[address] [place] [address] Monocytes/100 WBC (Bld) 8.5 % Normal 5.0-12.0 [facility] Comment on above: Performed By: #### L [id number] ####[facility] (BEAKER)[address] [place] [address] Neutrophils (Bld) [#/Vol] 3.29 10*3/uL Normal 1.60-7.60 [facility] Comment on above: Performed By: #### L [id number] ####[facility] (BEAKER)[address] [place] [address] Neutrophils/100 WBC (Bld) 66.4 % Normal 40.0-72.0 [facility] Comment on above: Performed By: #### L [id number] ####[facility] ([facility])[address] [place], [place] [address] NRBC (PER 100 WBCS) BY AUTOMATED COUNT 0.0 % Normal 0 [facility] Comment on above: Performed By: #### L [id number] ####[facility] (BEAKER)[address] [place], [place] [address] PLATELETS (10*3/UL) IN BLOOD AUTOMATED COUNT 142 10*3/uL Low 150-400 [facility] Comment on above: Performed By: #### L [id number] ####[facility] (BEAKER)[address] [place] [address] RBC (Bld) [#/Vol] 3.73 10*6/uL Low 4.20-5.70 [facility] Comment on above: Performed By: #### L [id number] ####[facility] (BEAKER)[address] [place] [address] WBC (Bld) [#/Vol] 4.95 10*3/uL Normal 4.00-10.60 [facility] Comment on above: Performed By: #### L [id number] ####[facility] (BEAKER)[address] [place] [address] COMPREHENSIVE METABOLIC PANE Braulio 06-25-2023 Albumin [Mass/Vol] 3.9 g/dL Normal 3.5-5.7 [facility] Comment on above: Performed By: #### L [id number] ####[facility] (BEAKER)[address] [place] [address] ALP [Catalytic activity/Vol] 49 U/L Normal 34-104 [facility] Comment on above: Performed By: #### L [id number] ####[facility] ([facility] [place] [address] ALT [Catalytic activity/Vol] 13 U/L Normal 7-52 [facility] Comment on above: Performed By: #### L [id number] ####[facility] ([facility] [place] [address] Anion gap [Moles/Vol] 11 mmol/L Normal 7-20 [facility] Comment on above: Performed By: #### L [id number] ####[facility] ([facility] [place] [address] AST [Catalytic activity/Vol] 12 U/L Low 13-39 [facility] Comment on above: Performed By: #### L [id number] ####[facility] ([facility] [place] [address] Bilirubin [Mass/Vol] 0.8 mg/dL Normal 0.3-1.0 [facility] Comment on above: Performed By: #### L [id number] ####[facility] ([facility] [place] [address] Calcium [Mass/Vol] 8.8 mg/dL Normal 8.6-10.3 [facility] Comment on above: Performed By: #### L [id number] ####[facility] (BEAKER)[address] [place] [address] Chloride [Moles/Vol] 102 mmol/L Normal 98-107 [facility] Comment on above: Performed By: #### L [id number] ####[facility] (BEAKER)[address] [place] [address] CO2 [Moles/Vol] 26 mmol/L Normal 21-31 [facility] Comment on above: Performed By: #### L [id number] ####[facility] (BEAKER)[address] [place] [address] Creatinine [Mass/Vol] 0.84 mg/dL Normal 0.70-1.30 [facility] Comment on above: Performed By: #### L [id number] ####[facility] (BEAKER)[address] [place] [address] GLOMERULAR FILTRATION RATE ML/MIN/1.73 SQ M.PREDICTED 106.2 mL/min/1.73m*2 Normal >60.0 [facility] Comment on above: Result Comment: [facility]???s estimated glomerular filtration rate (eGFR) [...] of individuals. Performed By: #### L [id number] ####[facility] (BEAKER)[address] [place] [address] Glucose [Mass/Vol] 93 mg/dL Normal 70-100 [facility] Comment on above: Performed By: #### L [id number] ####[facility] (BEAKER)[address] [place] [address] Potassium [Moles/Vol] 4.3 mmol/L Normal 3.5-5.1 [facility] Comment on above: Performed By: #### L [id number] ####[facility] (BEAKER)[address] [place] [address] Protein [Mass/Vol] 6.2 g/dL Normal 6.0-8.3 [facility] Comment on above: Performed By: #### L [id number] ####[facility] ([facility])[address] [place] [address] Sodium [Moles/Vol] 135 mmol/L Low 136-145 [facility] Comment on above: Performed By: #### L [id number] ####[facility] ([facility])[address] [place] [address] Urea nitrogen [Mass/Vol] 15 mg/dL Normal 7-25 [facility] Comment on above: Performed By: #### L [id number] ####[facility] ([facility])[address] [place] [address] UREA NITROGEN/CREATININE (MASS RATIO) IN SER/PLAS 17.9 Normal [facility] Comment on above: Performed By: #### L [id number] ####[facility] ([facility])[address] [place] [address] MAGNESIUMon 06-25-2023 Magnesium [Mass/Vol] 1.9 mg/dL Normal 1.9-2.7 [facility] Comment on above: Performed By: #### L [id number] ####[facility] ([facility])[address] [place] [address] MRSA/MSSA DNA NASALon 2023 MRSA DNA Negative Normal Negative [facility] Comment on above: Order [...] preclude nasal colonization. Performed By: #### L [id number] ####[facility] ([facility])[address] [place] [address] MSSA DNA Negative Normal Negative [facility] Comment on above: Order [...] preclude nasal colonization. Performed By: #### L [id number] ####[facility] [employer])[address] [place] [address] PROTIME-INRon 06-25-2023 INR IN PPP BY COAGULATION ASSAY 1.02 Normal 0.90-1.10 [facility] Comment on above: Result Comment: [...] CHEST 1995;108:231S-246S. Performed By: #### L [id number] ####[facility] [employer] [place] [address] PROTHROMBIN TIME (PT) IN PPP BY COAGULATION ASSAY 13.4 Seconds Normal 12.3-14.8 [facility] Comment on above: Performed By: #### L [id number] ####[facility] [employer])[address] [place] [address] TYPE AND SCREENon 06-25-2023 AB SCREEN Negative Normal [facility] Comment on above: Performed By: #### L [id number] ####[facility], ABO group Nom (Bld) A Normal [facility] Comment on above: Performed By: #### L [id number] ####[facility], RH TYPE IN BLOOD Negative Normal [facility] Comment on above: Performed By: #### L [id number] ####[facility], URINALYSISon 06-25-2023 BILIRUBIN, TOTAL PRESENCE IN URINE Negative Normal Negative [facility] Comment on above: Performed By: #### L [id number] ####[facility] ([facility])[address] [place] [address] Clarity (U) Clear Normal Clear [facility] Comment on above: Performed By: #### L [id number] ####[facility] (BEAKER)[address] [place] [address] Color (U) Kylie Abnormal Yellow [facility] Comment on above: Performed By: #### L [id number] ####[facility] (BEAKER)[address] [place] [address] Glucose (U) [Mass/Vol] Negative Normal Negative [facility] Comment on above: Performed By: #### L [id number] ####[facility] (BEAKER)[address] [place] [address] HEMOGLOBIN PRESENCE IN URINE Negative Normal Negative [facility] Comment on above: Performed By: #### L [id number] ####[facility] (BEAKER)[address] [place] [address] Ketones Ql (U) Negative Normal Negative [facility] Comment on above: Performed By: #### L [id number] ####[facility] (BEAKER)[address] [place] [address] LEUKOCYTE ESTERASE PRESENCE IN URINE BY TEST STRIP Negative Normal Negative [facility] Comment on above: Performed By: #### L [id number] ####[facility] [place] [address] NITRITE PRESENCE IN URINE Negative Normal Negative [facility] Comment on above: Performed By: #### L [id number] ####[facility] ([facility])[address] [place] [address] pH (U) 5.0 [pH] Normal 5.0-8.0 [facility] Comment on above: Performed By: #### L [id number] ####[facility] ([facility])[address] [place] [address] Protein (U) [Mass/Vol] 100 mg/dL Abnormal Negative [facility] Comment on above: Performed By: #### L [id number] ####[facility] ([facility])[address] [place] [address] Specific gravity (U) [Rel density] 1.033 High 1.015-1.020 [facility] Comment on above: Performed By: #### L [id number] ####[facility] ([facility])[address] [place] [address] UROBILINOGEN (EU/DL) IN URINE 2.0 EU/dL Abnormal Negative [facility] Comment on above: Performed By: #### L [id number] ####[facility] ([facility])[address] [place] [address] URINALYSIS MICROSCOPICon CALCIUM OXALATE CRYSTALS (#/HPF) IN URINE Occasional Abnormal None Seen [facility] Comment on above: Performed By: #### L [id number] ####[facility] ([facility])[address] [place] [address] CASTS IN URINE Normal [facility] Comment on above: Performed By: #### L [id number] ####[facility] ([facility])[address] [place] [address] CRYSTALS IN URINE Present Abnormal None Seen [facility] Comment on above: Performed By: #### L [id number] ####[facility] ([facility])[address] [place] [address] MUCUS (#/HPF) IN URINE SEDIMENT Moderate Abnormal None Seen, Occasional, Few [facility] Comment on above: Performed By: #### L [id number] ####[facility] ([facility] [place] [address] RBC (#/HPF) IN URINE SEDIMENT 3-5 Abnormal None Seen [facility] Comment on above: Performed By: #### L [id number] ####[facility] ([facility])[address] [place] [address] SQUAMOUS EPITHELIAL CELLS (#/HPF) IN URINE SEDIMENT Few Abnormal None Seen, Occasional [facility] Comment on above: Performed By: #### L [id number] ####[facility] ([facility])[address] [place] [address] WBC (LEUKOCYTE) (#/HPF) IN URINE SEDIMENT 0-2 Abnormal None Seen [facility] Comment on above: Performed By: #### L [id number] ####[facility] ([facility])[address] [place] [address] 30on 06-24-2023 30 Normal [facility] 30 Normal [facility] 30 Normal [facility] ANESon 06-24-2023 ANES Normal [facility] CBC WITH AUTO DIFFERENTIALon 06-24-2023 Basophils (Bld) [#/Vol] 0.03 10*3/uL Normal 0.00-0.20 [facility] Comment on above: Performed By: #### L [id number] ####[facility] ([facility] [place] [address] Basophils/100 WBC (Bld) 0.4 % Normal 0.0-1.0 [facility] Comment on above: Performed By: #### L [id number] ####[facility] ([facility])[address] [place] [address] Eosinophils (Bld) [#/Vol] 0.57 10*3/uL High 0.00-0.50 [facility] Comment on above: Performed By: #### L [id number] ####[facility] ([facility])[address] [place] [address] Eosinophils/100 WBC (Bld) 7.7 % High 0.0-6.0 [facility] Comment on above: Performed By: #### L [id number] ####[facility] ([facility])[address] [place] [address] Erythrocyte distribution width (RBC) [Ratio] 16.3 % High 11.5-15.0 [facility] Comment on above: Performed By: #### L [id number] ####[facility] ([facility] [place] [address] ERYTHROCYTE MEAN CORPUSCULAR HEMOGLOBIN CONCENTRATION (G/DL) BY AUTOMATED 33.1 g/dL Normal 32.0-35.0 [facility] Comment on above: Performed By: #### L [id number] ####[facility] ([facility])[address] [place] [address] Hematocrit (Bld) [Volume fraction] 35.3 % Low 39.0-55.0 [facility] Comment on above: Performed By: #### L [id number] ####[facility] ([facility] [place] [address] Hemoglobin (Bld) [Mass/Vol] 11.7 g/dL Low 13.0-17.0 [facility] Comment on above: Performed By: #### L [id number] ####[facility] ([facility] [place] [address] Immature granulocytes (Bld) [#/Vol] 0.03 10*3/uL Normal 0.00-0.20 [facility] Comment on above: Performed By: #### L [id number] ####[facility] ([facility])[address] [place] [address] Immature granulocytes/100 WBC (Bld) 0.4 % Normal 0.0-1.0 [facility] Comment on above: Performed By: #### L [id number] ####[facility] ([facility])[address] [place] [address] Lymphocytes (Bld) [#/Vol] 1.05 10*3/uL Low 1.20-4.00 [facility] Comment on above: Performed By: #### L [id number] ####[facility] ([facility])[address] [place] [address] Lymphocytes/100 WBC (Bld) 14.2 % Low 20.0-45.0 [facility] Comment on above: Performed By: #### L [id number] ####[facility] ([facility])[address] [place] [address] MCH (RBC) [Entitic mass] 29.3 pg Normal 27.0-33.0 [facility] Comment on above: Performed By: #### L [id number] ####[facility] ([facility])[address] [place] [address] MCV (RBC) [Entitic vol] 88.5 fL Normal 82.0-98.0 [facility] Comment on above: Performed By: #### L [id number] ####[facility] ([facility])[address] [place] [address] Monocytes (Bld) [#/Vol] 0.50 10*3/uL Normal 0.10-1.00 [facility] Comment on above: Performed By: #### L [id number] ####[facility] ([facility])[address] [place] [address] Monocytes/100 WBC (Bld) 6.8 % Normal 5.0-12.0 [facility] Comment on above: Performed By: #### L [id number] ####[facility] ([facility])[address] [place] [address] Neutrophils (Bld) [#/Vol] 5.20 10*3/uL Normal 1.60-7.60 [facility] Comment on above: Performed By: #### L [id number] ####[facility] ([facility])[address] [place] [address] Neutrophils/100 WBC (Bld) 70.5 % Normal 40.0-72.0 [facility] Comment on above: Performed By: #### L [id number] ####[facility] ([facility])[address] [address] NRBC (PER 100 WBCS) BY AUTOMATED COUNT 0.0 % Normal 0 [facility] Comment on above: Performed By: #### L [id number] ####[facility] ([facility])[address] [place] [address] PLATELETS (10*3/UL) IN BLOOD AUTOMATED COUNT 141 10*3/uL Low 150-400 [facility] Comment on above: Performed By: #### L [id number] ####[facility] ([facility])[address] [address] RBC (Bld) [#/Vol] 3.99 10*6/uL Low 4.20-5.70 [facility] Comment on above: Performed By: #### L [id number] ####[facility] ([facility])[address] [address] WBC (Bld) [#/Vol] 7.38 10*3/uL Normal 4.00-10.60 [facility] Comment on above: Performed By: #### L [id number] ####[facility] ([facility])[address] [address] COMPREHENSIVE METABOLIC PANE Braulio 06-24-2023 Albumin [Mass/Vol] 4.1 g/dL Normal 3.5-5.7 [facility] Comment on above: Performed By: #### L [id number] ####[facility] ([facility] [place] [address] ALP [Catalytic activity/Vol] 53 U/L Normal 34-104 [facility] Comment on above: Performed By: #### L [id number] ####[facility] ([facility] [place] [address] ALT [Catalytic activity/Vol] 12 U/L Normal 7-52 [facility] Comment on above: Performed By: #### L [id number] ####[facility] ([facility])[address] [place] [address] Anion gap [Moles/Vol] 12 mmol/L Normal 7-20 [facility] Comment on above: Performed By: #### L [id number] ####[facility] ([facility])[address] [place] [address] AST [Catalytic activity/Vol] 11 U/L Low 13-39 [facility] Comment on above: Performed By: #### L [id number] ####[facility] ([facility])[address] [place] [address] Bilirubin [Mass/Vol] 0.9 mg/dL Normal 0.3-1.0 [facility] Comment on above: Performed By: #### L [id number] ####[facility] ([facility])[address] [place] [address] Calcium [Mass/Vol] 9.0 mg/dL Normal 8.6-10.3 [facility] Comment on above: Performed By: #### L [id number] ####[facility] ([facility])[address] [place] [address] Chloride [Moles/Vol] 100 mmol/L Normal 98-107 [facility] Comment on above: Performed By: #### L [id number] ####[facility] ([facility])[address] [place] [address] CO2 [Moles/Vol] 26 mmol/L Normal 21-31 [facility] Comment on above: Performed By: #### L [id number] ####[facility] ([facility])[address] [place] [address] Creatinine [Mass/Vol] 0.84 mg/dL Normal 0.70-1.30 [facility] Comment on above: Performed By: #### L [id number] ####[facility] ([facility])[address] [place] [address] GLOMERULAR FILTRATION RATE ML/MIN/1.73 SQ M.PREDICTED 106.2 mL/min/1.73m*2 Normal >60.0 [facility] Comment on above: Result Comment: [facility]???s estimated glomerular filtration rate (eGFR) [...] of individuals. Performed By: #### L [id number] ####[facility] ([facility])[address] [place] [address] Glucose [Mass/Vol] 95 mg/dL Normal 70-100 [facility] Comment on above: Performed By: #### L [id number] ####[facility] ([facility])[address] [place] [address] Potassium [Moles/Vol] 3.9 mmol/L Normal 3.5-5.1 [facility] Comment on above: Performed By: #### L [id number] ####[facility] ([facility])[address] [place] [address] Protein [Mass/Vol] 6.5 g/dL Normal 6.0-8.3 [facility] Comment on above: Performed By: #### L [id number] ####[facility] ([facility])[address] [place] [address] Sodium [Moles/Vol] 134 mmol/L Low 136-145 [facility] Comment on above: Performed By: #### L [id number] ####[facility] ([facility])[address] [place] [address] Urea nitrogen [Mass/Vol] 12 mg/dL Normal 7-25 [facility] Comment on above: Performed By: #### L [id number] ####[facility] ([facility])[address] [place] [address] UREA NITROGEN/CREATININE (MASS RATIO) IN SER/PLAS 14.3 Normal [facility] Comment on above: Performed By: #### L [id number] ####[facility] ([facility] [place] [address] Documentationon 06-24-2023 Documentation Normal [facility] HPon 06-24-2023 HP Normal [facility] MAGNESIUMon 06-24-2023 Magnesium [Mass/Vol] 1.9 mg/dL Normal 1.9-2.7 [facility] Comment on above: Performed By: #### L [id number] ####[facility] ([facility] [place] [address] 30on 06-23-2023 30 Normal [facility] 30 [facility] CBC WITH AUTO DIFFERENTIALon 06-23-2023 Basophils (Bld) [#/Vol] 0.04 10*3/uL Normal 0.00-0.20 [facility] Comment on above: Performed By: #### L [id number] ####[facility] ([facility] [place] [address] Basophils/100 WBC (Bld) 0.5 % Normal 0.0-1.0 [facility] Comment on above: Performed By: #### L [id number] ####[facility] ([facility])[address] [place] [address] Eosinophils (Bld) [#/Vol] 0.56 10*3/uL High 0.00-0.50 [facility] Comment on above: Performed By: #### L [id number] ####[facility] ([facility])[address] [place] [address] Eosinophils/100 WBC (Bld) 7.5 % High 0.0-6.0 [facility] Comment on above: Performed By: #### L [id number] ####[facility] ([facility] [place] [address] Erythrocyte distribution width (RBC) [Ratio] 16.7 % High 11.5-15.0 [facility] Comment on above: Performed By: #### L [id number] ####[facility] ([facility])[address] [place] [address] ERYTHROCYTE MEAN CORPUSCULAR HEMOGLOBIN CONCENTRATION (G/DL) BY AUTOMATED 33.2 g/dL Normal 32.0-35.0 [facility] Comment on above: Performed By: #### L [id number] ####[facility] ([facility] [place] [address] Hematocrit (Bld) [Volume fraction] 34.9 % Low 39.0-55.0 [facility] Comment on above: Performed By: #### L [id number] ####[facility] ([facility])[address] [place] [address] Hemoglobin (Bld) [Mass/Vol] 11.6 g/dL Low 13.0-17.0 [facility] Comment on above: Performed By: #### L [id number] ####[facility] ([facility])[address] [place] [address] Immature granulocytes (Bld) [#/Vol] 0.03 10*3/uL Normal 0.00-0.20 [facility] Comment on above: Performed By: #### L [id number] ####[facility] ([facility])[address] [place] [address] Immature granulocytes/100 WBC (Bld) 0.4 % Normal 0.0-1.0 [facility] Comment on above: Performed By: #### L [id number] ####[facility] ([facility])[address] [place] [address] Lymphocytes (Bld) [#/Vol] 1.08 10*3/uL Low 1.20-4.00 [facility] Comment on above: Performed By: #### L [id number] ####[facility] ([facility])[address] [place] [address] Lymphocytes/100 WBC (Bld) 14.5 % Low 20.0-45.0 [facility] Comment on above: Performed By: #### L [id number] ####[facility] ([facility] [place] [address] MCH (RBC) [Entitic mass] 29.6 pg Normal 27.0-33.0 [facility] Comment on above: Performed By: #### L [id number] ####[facility] ([facility])[address] [place] [address] MCV (RBC) [Entitic vol] 89.0 fL Normal 82.0-98.0 [facility] Comment on above: Performed By: #### L [id number] ####[facility] ([facility])[address] [place] [address] Monocytes (Bld) [#/Vol] 0.50 10*3/uL Normal 0.10-1.00 [facility] Comment on above: Performed By: #### L [id number] ####[facility] ([facility])[address] [place] [address] Monocytes/100 WBC (Bld) 6.7 % Normal 5.0-12.0 [facility] Comment on above: Performed By: #### L [id number] ####[facility] ([facility])[address] [place] [address] Neutrophils (Bld) [#/Vol] 5.24 10*3/uL Normal 1.60-7.60 [facility] Comment on above: Performed By: #### L [id number] ####[facility] ([facility])[address] [place] [address] Neutrophils/100 WBC (Bld) 70.4 % Normal 40.0-72.0 [facility] Comment on above: Performed By: #### L [id number] ####[facility] ([facility])[address] [place] [address] NRBC (PER 100 WBCS) BY AUTOMATED COUNT 0.0 % Normal 0 [facility] Comment on above: Performed By: #### L [id number] ####[facility] ([facility])[address] [place] [address] PLATELETS (10*3/UL) IN BLOOD AUTOMATED COUNT 120 10*3/uL Low 150-400 [facility] Comment on above: Performed By: #### L [id number] ####[facility] ([facility])[address] [place] [address] RBC (Bld) [#/Vol] 3.92 10*6/uL Low 4.20-5.70 [facility] Comment on above: Performed By: #### L [id number] ####[facility] ([facility])[address] [place] [address] WBC (Bld) [#/Vol] 7.45 10*3/uL Normal 4.00-10.60 [facility] Comment on above: Performed By: #### L [id number] ####[facility] ([facility])[address] [place] [address] COMPREHENSIVE METABOLIC PANE Braulio 06-23-2023 Albumin [Mass/Vol] 4.1 g/dL Normal 3.5-5.7 [facility] Comment on above: Performed By: #### L [id number] ####[facility] ([facility])[address] [place] [address] ALP [Catalytic activity/Vol] 52 U/L Normal 34-104 [facility] Comment on above: Performed By: #### L [id number] ####[facility] ([facility])[address] [place] [address] ALT [Catalytic activity/Vol] 12 U/L Normal 7-52 [facility] Comment on above: Performed By: #### L [id number] ####[facility] ([facility])[address] [place] [address] Anion gap [Moles/Vol] 9 mmol/L Normal 7-20 [facility] Comment on above: Performed By: #### L [id number] ####[facility] ([facility])[address] [place] [address] AST [Catalytic activity/Vol] 9 U/L Low 13-39 [facility] Comment on above: Performed By: #### L [id number] ####[facility] ([facility])[address] [place] [address] Bilirubin [Mass/Vol] 1.0 mg/dL Normal 0.3-1.0 [facility] Comment on above: Performed By: #### L [id number] ####[facility] ([facility])[address] [place], [place] [address] Calcium [Mass/Vol] 8.7 mg/dL Normal 8.6-10.3 [facility] Comment on above: Performed By: #### L [id number] ####[facility] ([facility])[address] [place], [place] [address] Chloride [Moles/Vol] 101 mmol/L Normal 98-107 [facility] Comment on above: Performed By: #### L [id number] ####[facility] ([facility])[address] [place], [place] [address] CO2 [Moles/Vol] 27 mmol/L Normal 21-31 [facility] Comment on above: Performed By: #### L [id number] ####[facility] ([facility])[address] [place], [place] [address] Creatinine [Mass/Vol] 0.77 mg/dL Normal 0.70-1.30 [facility] Comment on above: Performed By: #### L [id number] ####[facility] ([facility])[address] [place] [address] GLOMERULAR FILTRATION RATE ML/MIN/1.73 SQ M.PREDICTED 109.1 mL/min/1.73m*2 Normal >60.0 [facility] Comment on above: Result Comment: [facility]???s estimated glomerular filtration rate (eGFR) [...] of individuals. Performed By: #### L [id number] ####[facility] ([facility])[address] [place] [address] Glucose [Mass/Vol] 106 mg/dL High 70-100 [facility] Comment on above: Performed By: #### L [id number] ####[facility] ([facility])[address] [place] [address] Potassium [Moles/Vol] 4.1 mmol/L Normal 3.5-5.1 [facility] Comment on above: Performed By: #### L [id number] ####[facility] ([facility])[address] [place] [address] Protein [Mass/Vol] 6.2 g/dL Normal 6.0-8.3 [facility] Comment on above: Performed By: #### L [id number] ####[facility] ([facility])[address] [place] [address] Sodium [Moles/Vol] 133 mmol/L Low 136-145 [facility] Comment on above: Performed By: #### L [id number] ####[facility] ([facility])[address] [place] [address] Urea nitrogen [Mass/Vol] 13 mg/dL Normal 7-25 [facility] Comment on above: Performed By: #### L [id number] ####[facility] ([facility])[address] [place] [address] UREA NITROGEN/CREATININE (MASS RATIO) IN SER/PLAS 16.9 [facility] Comment on above: Performed By: #### L [id number] ####[facility] ([facility])[address] [place] [address] CONSULTon 06-23-2023 CONSULT [facility] 30on 06-22-2023 30 [facility] 30 Normal [facility] APTTon 06-22-2023 ACTIVATED PARTIAL THROMBOPLASTIN TIME IN PPP BY COAGULATION ASSAY 31.2 Seconds Normal 25.0-35.0 [facility] Comment on above: Result Comment: Clin ical significance of the APTT is questionable in the presence of heparin. Performed By: #### L [id number] ####[facility] ([facility])[address] [place] [address] CBC WITH AUTO DIFFERENTIALon 06-22-2023 Basophils (Bld) [#/Vol] 0.03 10*3/uL Normal 0.00-0.20 [facility] Comment on above: Performed By: #### L [id number] ####[facility] ([facility])[address] [place] [address] Basophils/100 WBC (Bld) 0.4 % Normal 0.0-1.0 [facility] Comment on above: Performed By: #### L [id number] ####[facility] ([facility])[address] [place] [address] Eosinophils (Bld) [#/Vol] 0.39 10*3/uL Normal 0.00-0.50 [facility] Comment on above: Performed By: #### L [id number] ####[facility] ([facility])[address] [place] [address] Eosinophils/100 WBC (Bld) 5.0 % Normal 0.0-6.0 [facility] Comment on above: Performed By: #### L [id number] ####[facility] ([facility])[address] [facility] [facility] [place] [address] Erythrocyte distribution width (RBC) [Ratio] 16.3 % High 11.5-15.0 [facility] Comment on above: Performed By: #### L [id number] ####[facility] ([facility])[address] [place] [address] ERYTHROCYTE MEAN CORPUSCULAR HEMOGLOBIN CONCENTRATION (G/DL) BY AUTOMATED 33.1 g/dL Normal 32.0-35.0 [facility] Comment on above: Performed By: #### L [id number] ####[facility] ([facility])[address] [place] [address] Hematocrit (Bld) [Volume fraction] 35.6 % Low 39.0-55.0 [facility] Comment on above: Performed By: #### L [id number] ####[facility] ([facility])[address] [place] [address] Hemoglobin (Bld) [Mass/Vol] 11.8 g/dL Low 13.0-17.0 [facility] Comment on above: Performed By: #### L [id number] ####[facility] ([facility])[address] [place] [address] Immature granulocytes (Bld) [#/Vol] 0.02 10*3/uL Normal 0.00-0.20 [facility] Comment on above: Performed By: #### L [id number] ####[facility] ([facility])[address] [place] [address] Immature granulocytes/100 WBC (Bld) 0.3 % Normal 0.0-1.0 [facility] Comment on above: Performed By: #### L [id number] ####[facility] ([facility])[address] [place] [address] Lymphocytes (Bld) [#/Vol] 0.72 10*3/uL Low 1.20-4.00 [facility] Comment on above: Performed By: #### L [id number] ####[facility] ([facility])[address] [place] [address] Lymphocytes/100 WBC (Bld) 9.2 % Low 20.0-45.0 [facility] Comment on above: Performed By: #### L [id number] ####[facility] ([facility])[address] [place] [address] MCH (RBC) [Entitic mass] 29.0 pg Normal 27.0-33.0 [facility] Comment on above: Performed By: #### L [id number] ####[facility] ([facility])[address] [place] [address] MCV (RBC) [Entitic vol] 87.5 fL Normal 82.0-98.0 [facility] Comment on above: Performed By: #### L [id number] ####[facility] ([facility])[address] [place] [address] Monocytes (Bld) [#/Vol] 0.41 10*3/uL Normal 0.10-1.00 [facility] Comment on above: Performed By: #### L [id number] ####[facility] ([facility])[address] [place] [address] Monocytes/100 WBC (Bld) 5.2 % Normal 5.0-12.0 [facility] Comment on above: Performed By: #### L [id number] ####[facility] ([facility])[address] [place] [address] Neutrophils (Bld) [#/Vol] 6.24 10*3/uL Normal 1.60-7.60 [facility] Comment on above: Performed By: #### L [id number] ####[facility] ([facility])[address] [place] [address] Neutrophils/100 WBC (Bld) 79.9 % High 40.0-72.0 [facility] Comment on above: Performed By: #### L [id number] ####[facility] ([facility])[address] [place] [address] NRBC (PER 100 WBCS) BY AUTOMATED COUNT 0.0 % Normal 0 [facility] Comment on above: Performed By: #### L [id number] ####[facility] ([facility])[address] [place] [address] PLATELETS (10*3/UL) IN BLOOD AUTOMATED COUNT 110 10*3/uL Low 150-400 [facility] Comment on above: Performed By: #### L [id number] ####[facility] [place] [address] RBC (Bld) [#/Vol] 4.07 10*6/uL Low 4.20-5.70 [facility] Comment on above: Performed By: #### L [id number] ####[facility] ([facility])[address] [address] WBC (Bld) [#/Vol] 7.81 10*3/uL Normal 4.00-10.60 [facility] Comment on above: Performed By: #### L [id number] ####[facility] ([facility])[address] [address] CKon 06-22-2023 CREATINE KINASE (U/L) IN SER/PLAS 22.0 U/L Low 30.0-223.0 [facility] Comment on above: Performed By: #### L [id number] ####[facility] ([facility])[address] [place] [address] COMPREHENSIVE METABOLIC PANE Braulio 06-22-2023 Albumin [Mass/Vol] 4.0 g/dL Normal 3.5-5.7 [facility] Comment on above: Performed By: #### L [id number] ####[facility] ([facility])[address] [address] ALP [Catalytic activity/Vol] 52 U/L Normal 34-104 [facility] Comment on above: Performed By: #### L [id number] ####[facility] ([facility] [place] [address] ALT [Catalytic activity/Vol] 13 U/L Normal 7-52 [facility] Comment on above: Performed By: #### L [id number] ####[facility] (BEAKER)[address] [place] [address] Anion gap [Moles/Vol] 12 mmol/L Normal 7-20 [facility] Comment on above: Performed By: #### L [id number] ####[facility] ([facility])[address] [place] [address] AST [Catalytic activity/Vol] 9 U/L Low 13-39 [facility] Comment on above: Performed By: #### L [id number] ####[facility] ([facility])[address] [place] [address] Bilirubin [Mass/Vol] 1.1 mg/dL High 0.3-1.0 [facility] Comment on above: Performed By: #### L [id number] ####[facility] ([facility])[address] [place] [address] Calcium [Mass/Vol] 9.1 mg/dL Normal 8.6-10.3 [facility] Comment on above: Performed By: #### L [id number] ####[facility] ([facility])[address] [place] [address] Chloride [Moles/Vol] 100 mmol/L Normal 98-107 [facility] Comment on above: Performed By: #### L [id number] ####[facility] ([facility])[address] [place] [address] CO2 [Moles/Vol] 26 mmol/L Normal 21-31 [facility] Comment on above: Performed By: #### L [id number] ####[facility] ([facility])[address] [place] [address] Creatinine [Mass/Vol] 0.82 mg/dL Normal 0.70-1.30 [facility] Comment on above: Performed By: #### L [id number] ####[facility] ([facility])[address] [place] [address] GLOMERULAR FILTRATION RATE ML/MIN/1.73 SQ M.PREDICTED 107.0 mL/min/1.73m*2 Normal >60.0 [facility] Comment on above: Result Comment: [facility]???s estimated glomerular filtration rate (eGFR) [...] of individuals. Performed By: #### L [id number] ####[facility] ([facility])[address] [place] [address] Glucose [Mass/Vol] 161 mg/dL High 70-100 [facility] Comment on above: Performed By: #### L [id number] ####[facility] ([facility])[address] [place] [address] Potassium [Moles/Vol] 4.0 mmol/L Normal 3.5-5.1 [facility] Comment on above: Performed By: #### L [id number] ####[facility] ([facility])[address] [place] [address] Protein [Mass/Vol] 6.3 g/dL Normal 6.0-8.3 [facility] Comment on above: Performed By: #### L [id number] ####[facility] ([facility])[address] [facility] [place] [address] Sodium [Moles/Vol] 134 mmol/L Low 136-145 [facility] Comment on above: Performed By: #### L [id number] ####[facility] ([facility])[address] [place] [address] Urea nitrogen [Mass/Vol] 14 mg/dL Normal 7-25 [facility] Comment on above: Performed By: #### L [id number] ####[facility] ([facility])[address] [facility] [place] [address] UREA NITROGEN/CREATININE (MASS RATIO) IN SER/PLAS 17.1 [facility] Comment on above: Performed By: #### L [id number] ####[facility] ([facility])[address] [place] [address] CONSULTon 06-22-2023 CONSULT Normal [facility] MAGNESIUMon 06-22-2023 Magnesium [Mass/Vol] 1.8 mg/dL Low 1.9-2.7 [facility] Comment on above: Performed By: #### L [id number] ####[facility] (BEAKER)[address] [place] [address] PROTIME-INRon 06-22-2023 INR IN PPP BY COAGULATION ASSAY 1.05 Normal 0.90-1.10 [facility] Comment on above: Result Comment: [...] CHEST 1995;[id number]. Performed By: #### L [id number] ####[facility] ([facility]ER)[address] [place] [address] PROTHROMBIN TIME (PT) IN PPP BY COAGULATION ASSAY 13.7 Seconds Normal 12.3-14.8 [facility] Comment on above: Performed By: #### L [id number] ####[facility] ([facility])[address] [place] [address] 30on 06-21-2023 30 Normal [facility] 30 Normal [facility] 30 The patient is Moder ately Unstable - Medium risk of patient condition declining or worsening The patient's goals for the shift include COMFORT The clinical goals for the shift include VSS Normal [facility] 30 Normal [facility] ANESon 03-22-2024 ANES Normal [facility] B-TYPE NATRIURETIC PEPTIDEon 06-21-2023 Natriuretic peptide B (Bld) [Mass/Vol] 147 pg/mL High 0-100 [facility] Comment on above: Performed By: #### L [id number] ####[facility] ([facility])[address] [place] [address] BLOOD CULTUREon 06-21-2023 Bacteria identified Cx Nom (Bld) No growth at 5 days Normal [facility] Comment on above: Order Comment: From a different site than #1. Performed By: #### L [id number] ####[facility] ([facility])[address] [place] [address] C-REACTIVE PROTEINon 024 C REACTIVE PROTEIN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 Blankenship Performed By: #### 1 [id number] #### [facility] Laboratory [address] [place] [address] Reference Lab Reporton 03-12 Reference Lab Report [id number]#1.00TIFF Normal [facility] Lab Miscellaneous-LCon 03-08 Lab Miscellaneous see ref soap slabber Invalid Interpretation Code [facility] Comment on above: Performed By: #### 1 [id number] #### [facility] Laboratory [address] [place] [address] Reference Lab Reporton 03-08 Reference Lab Report [id number]#1.00TIFF Normal [facility] Auto Diffon 03-07-2023 Basophils/100 WBC (Bld) 0.7 % Normal 0.0-2.0 [facility] Comment on above: Order Comment: Order Added by Discern Expert. Performed By: #### 2 433022, 2582370, [id number] #### [facility] Laboratory [address] [place] [address] Basophils/Leukocytes Auto (Bld) [Pure # fraction] 0.1 E9/L Normal 0.0-0.2 [facility] Comment on above: Order Comment: Order Added by Discern Expert. Performed By: #### 2 684295, 8363389, 6596173 #### [facility] [address] [place] [address] Eosinophils/100 WBC (Bld) 2.6 % Normal 0.0-8.0 [facility] Comment on above: Order Comment: Order Added by Discern Expert. Performed By: #### 2 713228, 3304415, 7216141 #### [facility] [address] [place] [address] Eosinophils/Leukocyt es Auto (Bld) [Pure # fraction] 0.2 E9/L Normal 0.0-0.5 [facility] Comment on above: Order Comment: Order Added by Discern Expert. Performed By: #### 2 657312, 1911660, 2097867 #### [facility] [address] [place] [address] Lymphocytes/100 WBC (Bld) 18.6 % Normal 14.0-50.0 [facility] Comment on above: Order Comment: Order Added by Discern Expert. Performed By: #### 2 013938, 2101786, 4985743 #### [facility] [address] [place] [address] Lymphocytes/Leukocyt es Auto (Bld) [Pure # fraction] 1.3 E9/L Normal 1.0-4.0 [facility] Comment on above: Order Comment: Order Added by Discern Expert. Performed By: #### 2 913706, 1398383, 7889107 #### [facility] [address] [place] [address] Monocytes/100 WBC (Bld) 10.3 % Normal 4.0-14.0 [facility] Comment on above: Order Comment: Order Added by Discern Expert. Performed By: #### 2 880599, 2871624, 3536945 #### [facility] [address] [place] [address] Monocytes/Leukocytes Auto (Bld) [Pure # fraction] 0.7 E9/L Normal 0.2-1.0 [facility] Comment on above: Order Comment: Order Added by Discern Expert. Performed By: #### 2 369793, 0939792, 2470419 #### [facility] [address] [place] [address] Neutrophils/100 WBC (Bld) 67.8 % Normal 36.0-75.0 [facility] Comment on above: Order Comment: Order Added by Discern Expert. Performed By: #### 2 646235, 5295191, 4348794 #### [facility] [address] [place] [address] Neutrophils/Leukocyt es Auto (Bld) [Pure # fraction] 4.8 E9/L Normal 2.0-7.5 [facility] Comment on above: Order Comment: Order Added by Discern Expert. Performed By: #### 2 219084, 5714514, 3089060 #### [facility] [address] [place] [address] CBC w/ Auto Diffon 3 Erythrocyte distribution width (RBC) [Ratio] 13.1 % Normal 10.9-14.2 [facility] Comment on above: Performed By: #### 2 864049, 0707874, 7422894 #### [facility] [address] [place] [address] Hematocrit (Bld) [Volume fraction] 39.2 % Normal 37.7-49.0 [facility] Comment on above: Performed By: #### 2 165011, 6498390, 8110001 #### [facility] [address] [place] [address] Hemoglobin (Bld) [Mass/Vol] 13.4 g/dL Low 13.5-17.5 [facility] Comment on above: Performed By: #### 2 367998, 5093811, 4804217 #### [facility] [address] [place] [address] MCH (RBC) [Entitic mass] 29.0 pg Normal 27.0-34.0 [facility] Comment on above: Performed By: #### 2 746742, 9520922, 6619345 #### [facility] [address] [place] [address] MCHC (RBC) [Mass/Vol] 34.3 g/dL Normal 31.4-36.0 [facility] Comment on above: Performed By: #### 2 034447, 1984939, 5169760 #### [facility] [address] [place] [address] MCV (RBC) [Entitic vol] 84.6 fL Normal 80.0-100.0 [facility] Comment on above: Performed By: #### 2 541600, 3557141, 8318940 #### [facility] Laboratory [address] [place] [address] Platelet mean volume (Bld) [Entitic vol] 7.7 fL Normal 6.4-10.8 [facility] Comment on above: Performed By: #### 2 791670, 4895067, 7187427 #### [facility] Laboratory [address] [place] [address] Platelets (Bld) [#/Vol] 261.0 E9/L Normal 150.0-500.0 [facility] Comment on above: Performed By: #### 2 820941, 3769575, 9013419 #### [facility] [address] [place] [address] RBC (Bld) [#/Vol] 4.6 E12/L Normal 4.3-5.9 [facility] Comment on above: Performed By: #### 2 149768, 4635303, 1565566 #### [facility] [address] [place] [address] 95991 WBC corrected for nucl RBC Auto (Bld) [#/Vol] 7.1 E9/L Normal 4.0-11.0 [facility] Comment on above: Performed By: #### 2 049025, 0100561, 6178879 #### [facility] Laboratory [address] [place], [place] [address] CHEMISTRYOrdered By: SYSTEM SYSTEM on 03-07-2023 CRP [Mass/Vol] 1.8 mg/dL Normal <=1.9mg/dL [facility] Remis ol CRPon 03-07-2023 CRP [Mass/Vol] 1.8 mg/dL Normal <=1.9 [facility] Comment on above: Performed By: #### 2 938708, 4877764, 7220911 #### [facility] [address] [place] [address] Consent for Treatmenton Consent for Treatment [id number]#1.00TIFF Normal [facility] Erythrocyte Sedimentation Ra aniya 03-07-2023 ESR (Bld) [Velocity] 9 mm/h Normal 0-19 [facility] Comment on above: Result Comment: PERF ORMED BY: [place] [address] PATHOLOGIST DRESSMAKER GARMENT FITTER BARI GREENE M.D. Performed By: #### E #### [facility] [address] Erythrocyte sedimentation ra te by Photometric methodOrdered By: Huan Cowan on 03-07-2023 ESR Photometric method (Bld) [Velocity] 9 mm/hr 0-19 [facility] HEMATOLOGYOrdered By: SYSTEM SYSTEM on 03-07-2023 [...] 10.8 fL [facility] HemeAutoSS Platelets (Bld) [#/Vol] 261.0 E9/L Normal 150.0 - 500.0 E9/L [facility] HemeAutoSS RBC (Bld) [#/Vol] 4.6 E12/L Normal 4.3 - 5.9 E12/L [facility] HemeAutoSS WBC corrected for nucl RBC Auto (Bld) [#/Vol] 7.1 E9/L Normal 4.0 - 11.0 E9/L [facility] HemeAutoSS Lab Miscellaneous-LCon 03-07 Test Code 926108 Invalid Interpretation Code [facility] Comment on above: Performed By: #### 1 [id number] #### [facility] [address] [place] [address] Test Code TO [facility] Invalid Interpretation Code [facility] Comment on above: Performed By: #### 1 [id number] #### [facility] [address] [place] [address] Test Name [place] 6 Invalid Interpretation Code [facility] Comment on above: Performed By: #### 1 [id number] #### [facility] [address] [place] [address] Test Name SED RATE/FIREAL Invalid Interpretation Code [facility] Comment on above: Performed By: #### 1 [id number] #### [facility] [address] [place] [address] Physician Orderon 03-07-2023 Physician Order [id number]#1.00TIFF Normal [facility] Reference Laboratory Testing Ordered By: Yasmeen Ca on 03-07-2023 Sodium [Moles/Vol] 516857 mmol/L Invalid Interpretation Code [facility] SendOuts Test Code TO [facility] Invalid Interpretation Code [facility] SendOutsSS Test Name SED RATE/FIREAL Invalid Interpretation Code [facility] SendOutsSS Test Name [place] 6 Invalid Interpretation Code [facility] SendOutsSS Operative Reporton Operative Report [id number]#1.00TIFF Normal [facility] Formson 02-27-2023 Forms [id number]#1.00TIFF Normal [facility] Provider Letteron 02-27-2023 Provider Letter (Inserted Image. Jessica ble to display) [address] [place] [address] February 27, 2023 NEHAL BAIG [address] [place] [address] : [address] Mazariegos, The above patient has been evaluated at your request for preoperative clearance. After assessment of available pertinent labs and diagnostic tests, I feel this patient is medically optimized for surgery. Final discretion of whether the patient is cleared for surgery remains up to the surgeon/anesthesiologist. Thank you, MOSHE Mota Normal [facility] Auto Diffon 11-28-2023 Basophils/100 WBC (Bld) 0.6 % Normal 0.0-2.0 [facility] Comment on above: Order Comment: Order Added by Discern Expert. Performed By: #### 2 314967, 4357751 ####[address] [address] Basophils/Leukocytes Auto (Bld) [Pure # fraction] 0.1 E9/L Normal 0.0-0.2 [facility] Comment on above: Order Comment: Order Added by Discern Expert. Performed By: #### 2 726441, 1228470 ####[address] [address] Eosinophils/100 WBC (Bld) 2.3 % Normal 0.0-8.0 [facility] Comment on above: Order Comment: Order Added by Discern Expert. Performed By: #### 2 252140, 1967805 ####[address] [address] Eosinophils/Leukocyt es Auto (Bld) [Pure # fraction] 0.2 E9/L Normal 0.0-0.5 [facility] Comment on above: Order Comment: Order Added by Discern Expert. Performed By: #### 2 834390, 6907304 ####[address] [address] Lymphocytes/100 WBC (Bld) 16.2 % Normal 14.0-50.0 [facility] Comment on above: Order Comment: Order Added by Discern Expert. Performed By: #### 2 543384, 0410014 ####[address] [address] Lymphocytes/Leukocyt es Auto (Bld) [Pure # fraction] 1.5 E9/L Normal 1.0-4.0 [facility] Comment on above: Order Comment: Order Added by Discern Expert. Performed By: #### 2 169601, 2011287 ####[address] [address] Monocytes/100 WBC (Bld) 6.8 % Normal 4.0-14.0 [facility] Comment on above: Order Comment: Order Added by Discern Expert. Performed By: #### 2 348165, 3817967 ####[address] [address] Monocytes/Leukocytes Auto (Bld) [Pure # fraction] 0.6 E9/L Normal 0.2-1.0 [facility] Comment on above: Order Comment: Order Added by Discern Expert. Performed By: #### 2 998168, 2291541 ####[address] [address] Neutrophils/100 WBC (Bld) 74.1 % Normal 36.0-75.0 [facility] Comment on above: Order Comment: Order Added by Discern Expert. Performed By: #### 2 131588, 1276487 ####[address] [address] Neutrophils/Leukocyt es Auto (Bld) [Pure # fraction] 6.6 E9/L Normal 2.0-7.5 [facility] Comment on above: Order Comment: Order Added by Discern Expert. Performed By: #### 2 049559, 4448276 ####[address] [address] CBC w/ Auto Diffon 3 Erythrocyte distribution width (RBC) [Ratio] 13.6 % Normal 10.9-14.2 [facility] Comment on above: Performed By: #### 2 169707, 8764788 ####[address] [address] Hematocrit (Bld) [Volume fraction] 40.5 % Normal 37.7-49.0 [facility] Comment on above: Performed By: #### 2 563493, 6723122 ####[address] [address] Hemoglobin (Bld) [Mass/Vol] 13.9 g/dL Normal 13.5-17.5 [facility] Comment on above: Performed By: #### 2 399152, 7860128 ####[address] [place] [address] [place] [address] MCH (RBC) [Entitic mass] 28.9 pg Normal 27.0-34.0 [facility] Comment on above: Performed By: #### 2 894426, 8463887 ####[address] [address] MCHC (RBC) [Mass/Vol] 34.3 g/dL Normal 31.4-36.0 [facility] Comment on above: Performed By: #### 2 385370, 7542409 ####[address] [address] MCV (RBC) [Entitic vol] 84.2 fL Normal 80.0-100.0 [facility] Comment on above: Performed By: #### 2 710698, 5864942 ####[place] [address] Platelet mean volume (Bld) [Entitic vol] 7.7 fL Normal 6.4-10.8 [facility] Comment on above: Performed By: #### 2 748548, 3605098 ####[address] [address] Platelets (Bld) [#/Vol] 244.0 E9/L Normal 150.0-500.0 [facility] Comment on above: Performed By: #### 2 619656, 9596450 ####[address] [address] RBC (Bld) [#/Vol] 4.8 E12/L Normal 4.3-5.9 [facility] Comment on above: Performed By: #### 2 642608, 1871299 ####[address] [address] WBC corrected for nucl RBC Auto (Bld) [#/Vol] 8.9 E9/L Normal 4.0-11.0 [facility] Comment on above: Performed By: #### 2 260992, 8250904 ####[address] [place] [address] Consent for Treatmenton 01-31 Consent for Treatment [id number]#1.00TIFF Normal [facility] HEMATOLOGYOrdered By: SYSTEM SYSTEM on [...] 28.9 pg Normal 27.0 - 34.0 pg [facility] HemeAutoSS MCHC (RBC) [Mass/Vol] 34.3 g/dL Normal 31.4 - 36.0 gm/dL FT HemeAutoSS MCV (RBC) [Entitic vol] 84.2 fL Normal 80.0 - 100.0 fL [facility] HemeAutoSS Platelet mean volume (Bld) [Entitic vol] 7.7 fL Normal 6.4 - 10.8 fL [facility] HemeAutoSS Platelets (Bld) [#/Vol] 244.0 E9/L Normal 150.0 - 500.0 E9/L [facility] HemeAutoSS RBC (Bld) [#/Vol] 4.8 E12/L Normal 4.3 - 5.9 E12/L [facility] HemeAutoSS WBC corrected for nucl RBC Auto (Bld) [#/Vol] 8.9 E9/L Normal 4.0 - 11.0 E9/L [facility] HemeAutoSS Physician Orderon 02-26-2023 Physician Order [id number]#1.00TIFF Normal [facility] CHEMISTRYOrdered By: SYSTEM SYSTEM on 02-25-2023 CRP [Mass/Vol] 6.7 mg/dL High <=1.9mg/dL [facility] Remis ol CRPon 02-25-2023 CRP [Mass/Vol] 6.7 mg/dL High <=1.9 [facility] Comment on above: Performed By: #### 2 [id number] ####[facility] [address] [place] [address] Consent for Treatmenton 01-31 Consent for Treatment [id number]#1.00TIFF Normal [facility] ED Note-Physicianon 02-26-20 ED Note-Physician [id number]#1.00TIFF Normal [facility] Lab Miscellaneous-LCon 02-25 Test Code 782964 Invalid Interpretation Code [facility] Comment on above: Performed By: #### 1 [id number] ####[facility] [address] [place] [address] Test Name Interleukin-6 Invalid Interpretation Code [facility] Comment on above: Performed By: #### 1 [id number] ####[facility] [address] [place] [address] Physician Orderon 02-25-2023 Physician Order [id number]#1.00TIFF Normal [facility] RAD - MISCon 02-25-2023 RAD - MISC [id number]#1.00TIFF Normal [facility] Reference Laboratory Testing Ordered By: Elysia Oseguera on 02-25-2023 Sodium [Moles/Vol] 292321 mmol/L Invalid Interpretation Code [facility] SendOuts Test Name Interleukin-6 Invalid Interpretation Code [facility] SendOutsSS Consultation Noteon 02-20-20 Consultation Note [id number]#1.00TIFF Normal [facility] Operative Reporton 3 Operative Report [id number]#1.00TIFF Normal [facility] Consultation Noteon 01-30-20 Consultation Note [id number]#1.00TIFF [facility] RAD - MRI Reporton 3 RAD - MRI Report [id number]#1.00TIFF Normal [facility] XR cerv spine AP/LAT/FLX/EXT on 01-17-2023 XR cerv spine AP/LAT/FLX/EXT [address] [address] XRay Report Signed Patient: Nehal Baig MR#: [id number] 8 : 1970 Acct:[id number] Age/Sex: 52 / M ADM Date: 01/17/23 Loc: XD Room: Type: [facility] CLI Attending Dr: Siri Quezada NP-C Copies to: [...] Khadijah Roach M.D.01/17/2023 4:22 PM Dictation Location: [place] [address] Transcribed By: [facility] 01/17/23 162 Dictated By: Khadijah Roach MD 01/17/231619 Signed By: 01/17/231621 Normal [facility] XR lumbar spine 6V w bending on 01-17-2023 XR lumbar spine 6V w bending [facility] Main [place] [address] [place] [address] XRay Report Signed Patient: Nehal Baig MR#: [id number] 8 : 1970 Acct:[id number] Age/Sex: 52 / M ADM Date: 01/17/23 Loc: XD Room: Type: [facility] Attending Dr: Siri Quezada NP-C Copies to: [...] Christopher Cedeno M.D.01/17/2023 12:51 PM Dictation Location: [place] [address] Transcribed By: [facility] 01/17/23 1251 Dictated By: Christopher Cedeno DO 01/17/23 1246 Signed By: 01/17/23 1251 Normal [facility] RAD - MISCon 01-16-2023 RAD - MISC [id number]#1.00TIFF Normal [facility] - MISC [id number]#1.00TIFF Normal [facility] Lab Reportson 01-14-2023 Lab Reports [id number]#1.00TIFF Normal [facility] Lab Reports [id number]#1.00TIFF Normal [facility] Retail - Clinical Noteon Retail - Clinical Note [id number]#1.00TIFF Normal [facility] Ambulatory Visit Summaryon 1 Ambulatory Visit [...] shoulder pain sleep disorder Normal [facility] XR ankle LT min 3V*on 2022 XR ankle LT min 3V* [facility] [employer] Other XR ankle LT min 3V* [facility] Main [facility] [employer] Other XR ankle LT min 3V* 1[facility] [employer] Other XR ankle LT min 3V* KARLO Sarmiento [address] [address] [facility] [employer] Other XR ankle LT min 3V* XRay Report [facility] [email or web address] Other XR ankle LT min 3V* Signed [employer] Other XR ankle LT min 3V* Patient: Nehal Baig MR#: [id number] [employer] Other XR ankle LT min 3V* 8 [employer] Other XR ankle LT min 3V* : 1970 Acct:[id number] [employer] Other XR ankle LT min 3V* Age/Sex: 52 / M ADM Date: 12/16/22 [employer] Other XR ankle LT min 3V* Loc: XDUCLY Room: pe: REG CLI [employer] Other XR ankle LT min 3V* Attending Dr: Kelly MALONEY [employer] Other XR ankle LT min 3V* Copies to: HAIDER Larson [employer] Other XR ankle LT min 3V* Ordering Provider: HAIDER Rehman [employer] Other XR ankle LT min 3V* Date of Service: 12/16/22 [employer] Other XR ankle LT min 3V* [id number]) XR/XR ankle LT min 3V*: LEFT ANKLE PAIN [employer] Other XR ankle LT min 3V* XR ankle LT min 3V* 12/16/2022 10:31 AM [employer] Other XR ankle LT min 3V* SIGNS AND SYMPTOMS: Pain and swelling of the posterior left ankle [employer] Other XR ankle LT min 3V* PROTOCOL: Frontal, lateral, and oblique radiographs of the left ankle [employer] Other XR ankle LT min 3V* COMPARISON: None [employer] Other XR ankle LT min 3V* FINDINGS: [employer] Other XR ankle LT min 3V* The ankle mortise is preserved. There is no evidence of fracture or dislocation. There is Achilles [employer] Other XR ankle LT min 3V* surface calcaneal spurring. There is soft tissue swelling diffusely which is nonspecific. [employer] Other XR ankle LT min 3V* X R/XR ankle LT min 3V* [employer] Other XR ankle LT min 3V* IMPRESSION: [facility] [email or web address] Other XR ankle LT min 3V* No fracture. [facility] [email or web address] Other XR ankle LT min 3V* Diffuse soft tissue swelling. [employer] Other XR ankle LT min 3V* There is Achilles castano rface calcaneal spurring. [employer] Other XR ankle LT min 3V* Impression dictated by: Nehal Horner M.D.12/16/2022 10:42 AM [employer] Other XR ankle LT min 3V* Dictation Location: [place] [address] [employer] Other XR ankle LT min 3V* Transcribed By: MARLO 12/16/22 1042 [employer] Other XR ankle LT min 3V* Dictated By: Nehal Horner II, MD 12/16/22 1042 [employer] Other XR ankle LT min 3V* Signed By: [employer] Other XR ankle LT min 3V* 12/16/22 1042 No rt [email or web address] Other XR ankle LT min 3V* [facility] Main [place] [address] [place] [address] XRay Report Signed Patient: Nehal Baig MR#: [id number] 8 : 1970 Acct:[id number] Age/Sex: 52 / M ADM Date: 12/16/22 [facility]: Type: [facility] Attending Dr: Kelly MALONEY Copies to: [...] Nehal Horner M.D.12/16/2022 10:42 AM Dictation Location: [place] [address] Transcribed By: [facility] 12/16/22 1042 Dictated By: Nehal Horner II, MD 12/16/22 1042 Signed By: 12/16/22 1042 Normal [facility] -- NEHAL BAIG ([id number]) 1970 M Date Time Provider Department 05/28/22 SALOME GAUILLON [facility] During your visit today, we recorded the following information about you: Salome Aguillon APRN.CNP 05/28/2022 11:57 AM Signed Please call patient [...] [R80.9] Order(s):PROTEIN CREATININE RATIO [SQPRATIO] Order #: [id number] FUTURE Prescriptions as of 05/29/2022 - atorvastatin [...] Status:Closed by VIVEK RICO on 05/28/22 Normal [facility] KIDNEY/BLADDERon 05-26-19 KIDNEY/BLADDER * * *Final Report* * * DATE OF EXAM: May 26 2022 2:34PM [facility] 1055 - US KIDNEY/BLADDER / PROCEDURE REASON: [...] No evidence of renal calculus or hydronephrosis. Core Paster: GREGORY Transcribe Date/Time: May 26 2022 2:43P Dictated by : BOB RODRIGUEZ MD This examination was interpreted and the report reviewed and electronically signed by: BOB RODRIGUEZ MD on May 27 2022 5:50AM EST [id number] [facility] ) -- NEHAL BAIG ([id number]) 1970 M Date Time Provider Department 05/21/22 5:20 PM SALOME AGUILLON [facility] During your visit today, we recorded the following information about you: Pulse Blood pressure Weight Height 89/minute 133/67 180.5 kg 1.854 m Salome Aguillon APRN.STREET AND BUILDING DECORATOR 05/21/2022 6:45 PM Addendum This note was [...] 2020. This is a workers comp issue-through [facility]/Dr. Cwoan. 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 Shoulder replacement surgery left 08/23/24. 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 ENDO/WT: -needs f/up endo wt managmeent Dr. Jorge -needs f/up entry specialists Tarsha Jamison -needs appt with Dr. Man/Agustina-endo wt management team [phone] Will review at upcoming appointment. Protein noted in urine. Vitamin D is low at 30.7-recommend kufj-ale-duvnwnr vitamin D3 1000 units daily. Cholesterol is elevated, worsening when compared to prior-we will discuss increasing cholesterol medication. Kidney, liver, electrolytes look fine. Thyroid lab looks fine. PSA/prostate lab looks fine. A1c is stable at 5.4. Blood count looks fine. Written by Salome Aguillon APRN.STREET AND BUILDING DECORATOR on 05/21/2022 3:44 PM EST Last 2 [...] Negative Ketones, Urine Negative Trace (A) Specific [place], Ur 1.005 - 1.030 >=1.030 (H) Hemoglobin/Blood,Ur [...] hyperlipidemia Obst (more content not included)... Normal [facility] 25(OH)D3 SerPl-ncon 2022 25-hydroxyvitamin D3 [Mass/Vol] 30.7 ng/mL Low 31.0-80.0 [facility] Comment on above: Order Comment: Speci men Type: BLOOD SPECIMEN Ordering Facility: [facility] Address: [address] [place] [id number] Result Comment: Clas sification of 25 [place] Vitamin D status: Deficiency/Insufficiency: < or = 30 ng/ml. Sufficiency/Optimal Levels: 31-80 ng/mL Toxicity: > 100 ng/mL. Test performed by chemiluminescent immunoassay. Performed By: #### 1 989-3 #### [facility] CLIA [id number] [address] [place] [address] [facility] CBC panel Auto (Bld)on 05-19 Erythrocyte distribution width (RBC) [Ratio] 12.9 % Normal 11.5-15.0 [facility] Comment on above: Order Comment: Speci men Type: URINE SPECIMEN Ordering Facility: [facility] Address: [address] Performed By: #### L [id number] #### [facility] CLIA [id number] [address] [place] [address] STATES [facility] Hematocrit (Bld) [Volume fraction] 42.7 % Normal 39.0-51.0 [facility] Comment on above: Order Comment: Speci men Type: URINE SPECIMEN Ordering Facility: [facility] Address: [address] Performed By: #### L [id number] #### [facility] CLIA [id number] [address] [place] [address] STATES [facility] Hemoglobin (Bld) [Mass/Vol] 14.5 g/dL Normal 13.0-17.0 [facility] Comment on above: Order Comment: Speci men Type: URINE SPECIMEN Ordering Facility: [facility] Address: [address] [place] [address] Performed By: #### L [id number] #### [facility] CLIA [id number] [address] [place] [address] MCH (RBC) [Entitic mass] 29.2 pg Normal 26.0-34.0 [facility] Comment on above: Order Comment: Speci men Type: URINE SPECIMEN Ordering Facility: [facility] Address: [address] [place] [address] Performed By: #### L [id number] #### [facility] CLIA [id number] [address] [place] [address] STATES [facility] MCHC (RBC) [Mass/Vol] 34.0 g/dL Normal 30.5-36.0 [facility] Comment on above: Order Comment: Speci men Type: URINE SPECIMEN Ordering Facility: [facility] Address: [address] [place] [address] Performed By: #### L [id number] #### [facility] CLIA [id number] [address] [place] [address] [place] MCV (RBC) [Entitic vol] 85.9 fL Normal 80.0-100.0 [facility] Comment on above: Order Comment: Speci men Type: URINE SPECIMEN Ordering Facility: [facility] Address: [address] [place], [place] [address] Performed By: #### L [id number] #### [facility] CLIA [id number] [address] [place] [address] [place] Nucleated RBC (Bld) [#/Vol] 10*3/uL Normal <0.01 [facility] Comment on above: Order Comment: Speci men Type: URINE SPECIMEN Ordering Facility: [facility] Address: [address] [place] [address] Performed By: #### L [id number] #### [facility] CLIA [id number] [address] [place] [address] [place] Platelet mean volume (Bld) [Entitic vol] 10.2 fL Normal 9.0-12.7 [facility] Comment on above: Order Comment: Speci men Type: URINE SPECIMEN Ordering Facility: [facility] Address: [address] [place] [address] Performed By: #### L [id number] #### [facility] CLIA [id number] [address] [place] [address] [place] Platelets (Bld) [#/Vol] 189 10*3/uL Normal 150-400 [facility] Comment on above: Order Comment: Speci men Type: URINE SPECIMEN Ordering Facility: [facility] Address: [address] [place] [address] Performed By: #### L [id number] #### [facility] CLIA [id number] [address] [place] [address] [place] RBC (Bld) [#/Vol] 4.97 10*6/uL Normal 4.20-6.00 [facility] Comment on above: Order Comment: Speci men Type: URINE SPECIMEN Ordering Facility: [facility] Address: [address] [place] [address] Performed By: #### L [id number] #### [facility] CLIA [id number] [address] [place] [address] [place] WBC (Bld) [#/Vol] 5.26 10*3/uL Normal 3.70-11.00 [facility] Comment on above: Order Comment: Speci men Type: URINE SPECIMEN Ordering Facility: [facility] Address: [address] [place] [address] Performed By: #### L [id number] #### [facility] CLIA [id number] [address] [place], [place] [address] [place] Comprehensive metabolic 2000 panelon 05-19-2022 Albumin [Mass/Vol] 4.4 g/dL Normal 3.9-4.9 [facility] Comment on above: Order Comment: Speci men Type: BLOOD SPECIMENOrdering Facility: [facility] Address: [address] [place] [address] Performed By: #### 2 4323-8, 77386-7 ####[facility]IA [id number] [place] [address] [place] ALP [Catalytic activity/Vol] 83 U/L Normal 38-113 [facility] Comment on above: Order Comment: Speci men Type: BLOOD SPECIMENOrdering Facility: [facility] Address: [address] [place] [place] [address] Performed By: #### 2 432-8, 94677-0 ####[facility] LABIA [id number] [place] [id number] [place] ALT [Catalytic activity/Vol] 45 U/L Normal 10-54 [facility] Comment on above: Order Comment: Speci men Type: BLOOD SPECIMENOrdering Facility: [facility] Address: [address] [place] [place] [address] Performed By: #### 2 4323-8, 28896-2 ####[facility] LABIA [id number] [place] [id number] [place] Anion gap [Moles/Vol] 10 mmol/L Normal 9-18 [facility] Comment on above: Order Comment: Speci men Type: BLOOD SPECIMENOrdering Facility: [facility] Address: [address] [place] [place] [address] Performed By: #### 2 4323-8, 82555-1 ####[facility] LABIA [id number] [place] [address] [place] AST [Catalytic activity/Vol] 31 U/L Normal 14-40 [facility] Comment on above: Order Comment: Speci men Type: BLOOD SPECIMENOrdering Facility: [facility] Address: [address] [place] [address] Performed By: #### 2 4323-8, 36898-2 ####[facility] LABCLIA [id number] [place] [address] [place] Bilirubin [Mass/Vol] 0.6 mg/dL Normal 0.2-1.3 [facility] Comment on above: Order Comment: Speci men Type: BLOOD SPECIMENOrdering Facility: [facility] Address: [address] [place] [address] Performed By: #### 2 4323-8, 76678-2 ####[facility] LAB[facility]IA [id number] [place] [address] [place] Calcium [Mass/Vol] 9.5 mg/dL Normal 8.5-10.2 [facility] Comment on above: Order Comment: Speci men Type: BLOOD SPECIMENOrdering Facility: [facility] Address: [address] [place] [address] Performed By: #### 2 4328, 94896-9 ####[facility] LABCLIA [id number] [place] [id number] [place] Chloride [Moles/Vol] 103 mmol/L Normal 97-105 [facility] Comment on above: Order Comment: Speci men Type: BLOOD SPECIMENOrdering Facility: [facility] Address: [address] [place] [address] Performed By: #### 2 4323-8, 01599-9 ####[facility] LAB[facility]IA [id number] [place] [address] [place] CO2 [Moles/Vol] 26 mmol/L Normal 22-30 [facility] Comment on above: Order Comment: Speci men Type: BLOOD SPECIMENOrdering Facility: [facility] Address: [address] [place] [address] Performed By: #### 2 4323-8, 55449-0 ####[facility] LABCLIA [id number] [place] [address] [place] Creatinine [Mass/Vol] 0.98 mg/dL Normal 0.73-1.22 [facility] Comment on above: Order Comment: Tessa sandra Type: BLOOD SPECIMENOrdering Facility: [facility] Address: [address] [place] [address] Performed By: #### 2 4323-8, 07876-5 ####[facility] LABCLIA [id number] [place] [id number] [place] ESTIMATED GLOMERULAR FILTRATION RATE 95 mL/min/1.73m??? Normal >=60 [facility] Comment on above: Order Comment: Specdallas men Type: BLOOD SPECIMENOrdering Facility: [facility] Address: [address] [place] [address] Result Comment: Halle mated Glomerular Filtration Rate [...] actual GFR. Performed By: #### 2 4323-8, 30339-0 ####[facility] LABCLIA [id number] [place] [id number] [place] Glucose [Mass/Vol] 203 mg/dL High 74-99 [facility] Comment on above: Order Comment: Tessa flores Type: BLOOD SPECIMENOrdering Facility: [facility] Address: [address] [place] [address] Result Comment: The [place] Diabetes Association (ADA) provides guidance for cutoff [...] Medical Care in Diabetes 2016, [place] Diabetes Association. Diabetes Care. 2016.39(Suppl 1). Performed By: #### 2 4323-8, 23185-2 ####[facility] LABCLIA [id number] [place] [address] [place] Potassium [Moles/Vol] 4.6 mmol/L Normal 3.7-5.1 [facility] Comment on above: Order Comment: Speci men Type: BLOOD SPECIMENOrdering Facility: [facility] Address: [address] [address] Performed By: #### 2 4323-8, 65434-0 ####[facility] LABIA [id number] [place] [id number] [place] Protein [Mass/Vol] 7.4 g/dL Normal 6.3-8.0 [facility] Comment on above: Order Comment: Speci men Type: BLOOD SPECIMENOrdering Facility: [facility] Address: [address] [address] Performed By: #### 2 432-8, 28569-3 ####[facility] LABIA [id number] [place] [address] [place] Sodium [Moles/Vol] 139 mmol/L Normal 136-144 [facility] Comment on above: Order Comment: Speci men Type: BLOOD SPECIMENOrdering Facility: [facility] Address: [address] [address] Performed By: #### 2 4323-8, 76206-8 ####[facility]IA [id number] [place] [id number] [place] Urea nitrogen [Mass/Vol] 17 mg/dL Normal 9-24 [facility] Comment on above: Order Comment: Speci men Type: BLOOD SPECIMENOrdering Facility: [facility] Address: [address] [address] Performed By: #### 2 4323-8, 64578-4 ####[facility] LABCLIA [id number] OF [facility] HbA1c (Bld)on 05-19-2022 Average glucose Estimated from glycated hemoglobin (Bld) [Mass/Vol] 108 mg/dL Normal [facility] Comment on above: Order Comment: Tessa flores Type: URINE SPECIMEN Ordering Facility: [facility] Address: [address] [address] Result Comment: eAG: (Estimated average glucose) is a calculated value from HgbA1c and is underwriting sales representative of the average blood glucose level in the last 2-3 month period. Performed By: #### L [id number] #### [facility] CLIA [id number] [address] [place] [address] HbA1c (Bld) [Mass fraction] 5.4 % Normal 4.3-5.6 [facility] Comment on above: Order Comment: Tessa flores Type: URINE SPECIMEN Ordering Facility: [facility] Address: [address] [place] [address] Result Comment: [place] Diabetes Association guidelines indicate that patients with HgbA1c in the range 5.7-6.4% are at increased risk for development of diabetes, and intervention by lifestyle modification may be beneficial. HgbA1c greater or equal to 6.5% is considered diagnostic of diabetes. Performed By: #### L [id number] #### [facility] CLIA [id number] [address] [place] [address] OF [facility] Lipid 1996 panelon 3 Cholesterol [Mass/Vol] 219 mg/dL High <200 [facility] Comment on above: Order Comment: Selmai men Type: BLOOD SPECIMENOrdering Facility: [facility] Address: [address] [address] Result Comment: <200 mg/dL, Desirable 200-239 mg/dL, Borderline high >239 mg/dL, High Performed By: #### 2 4323-8, 70750-7 ####[facility]CLIA [id number] [address] OF [facility] Cholesterol in HDL [Mass/Vol] 38 mg/dL Low >39 [facility] Comment on above: Order Comment: Tessa flores Type: BLOOD SPECIMENOrdering Facility: [facility] Address: [address] [place] [address] Result Comment: 40-5 9 mg/dL, Acceptable >59 mg/dL, High: Negative risk factor for coronary heart disease <40 mg/dL, Low: Positive risk factor for coronary heart disease Performed By: #### 2 4323-8, 02475-2 ####[facility] LABCLIA [id number] [address] [id number] [facility] Cholesterol in LDL [Mass/Vol] 149 mg/dL High <100 [facility] Comment on above: Order Comment: Selmadallas flores Type: BLOOD SPECIMENOrdering Facility: [facility] Address: [address] [place] [address] Result Comment: <100 mg/dL, Optimal 100-129 mg/dL, Near optimal/above optimal 130-159 mg/dL, Borderline high 160-189 mg/dL, High >189 mg/dL, Very high Secondary prevention optimal LDL Cholesterol levels are recommended to be < 70 mg/dL Performed By: #### 2 4323-8, 27549-2 ####[facility] LABIA [id number] [address] Cholesterol in LDL/Cholesterol in HDL [Mass ratio] 3.92 {ratio} High <2.54 [facility] Comment on above: Order Comment: Tessa flores Type: BLOOD SPECIMENOrdering Facility: [facility] Address: [address] [place] [address] Result Comment: Refe rence: 1. National Cholesterol Education Program ATP III Guideline At-A-Glance Quick Desk Reference: National Heart, Lung, and Blood [place]. National Institutes of Health. 2001: NIH Publication No. 01-3305. 2. An International Atherosclerosis Society position paper: global recommendations for the management of dyslipidemia: executive summary, Atherosclerosis. 2014: 232(2):410-413. Performed By: #### 2 4323-8, 99750-1 ####[facility] LABCLIA [id number] [place] [address] Cholesterol in VLDL [Mass/Vol] 32 mg/dL High <30 [facility] Comment on above: Order Comment: Speci men Type: BLOOD SPECIMENOrdering Facility: [facility] Address: [address] [place] [address] Performed By: #### 2 4323-8, 84082-7 ####[facility] LABCLIA [id number] [address] [place] Cholesterol non HDL [Mass/Vol] 181 mg/dL High <130 [facility] Comment on above: Order Comment: Speci men Type: BLOOD SPECIMENOrdering Facility: [facility] Address: [address] [place] [address] Result Comment: <130 mg/dL, Optimal 130-159 mg/dL, Near optimal/above optimal 160-189 mg/dL, Borderline high 190-219 mg/dL, High >219 mg/dL, Very high Secondary prevention optimal non HDL Cholesterol levels are recommended to be <100 mg/dL Performed By: #### 2 4328, 49245-0 ####[facility] LABIA [id number] [address] Cholesterol.total/Ch olesterol in HDL [Mass ratio] 5.76 {ratio} High <5.10 [facility] Comment on above: Order Comment: Speci men Type: BLOOD SPECIMENOrdering Facility: [facility] Address: [address] [place] [address] Performed By: #### 2 43238, 51997-2 ####[facility] LABCLIA [id number] [address] STATES [facility] FASTING TIME 10 hrs Normal [facility] Comment on above: Order Comment: Speci men Type: BLOOD SPECIMENOrdering Facility: [facility] Address: [address] [address] Performed By: #### 2 4323-8, 37200-0 ####[facility] LABCLIA [id number] [address] [place] Triglyceride [Mass/Vol] 161 mg/dL High <150 [facility] Comment on above: Order Comment: Speci men Type: BLOOD SPECIMENOrdering Facility: [facility] Address: [address] [address] Result Comment: <150 mg/dL, Normal 150-199 mg/dL, Borderline high 200-499 mg/dL, High >499 mg/dL, Very high Performed By: #### 2 4323-8, 10422-0 ####[facility] LABCLIA [id number] [place] [address] [place] PSA/PROSTSPECAG SCRNon 05-19 Prostate specific Ag [Mass/Vol] 0.56 ng/mL Normal <2.60 [facility] Comment on above: Order Comment: Speci men Type: BLOOD SPECIMENOrdering Facility: [facility] Address: [address] [address] Result Comment: Tota kim PSA test methodology used is the Electrochemiluminescence Immunoassay by [employer] [place]. Total PSA values by differing methodologies cannot be interchanged. Performed By: #### P SAS1 ####[facility] LABCLIA [id number] [address] [place] TSH SerPl-aCncon 05-19-2022 TSH Qn 1.020 m[IU]/L Normal 0.270-4.200 [facility] Comment on above: Order Comment: Speci men Type: BLOOD SPECIMENOrdering Facility: [facility] Address: [address] [address] Performed By: #### 3 016-3 ####[facility] LABCLIA [id number] [place] [address] [place] URINALYSIS, REFLEX MICROSCOP ICon 05-19-2022 Bilirubin Ql (U) Negative Normal Negative [facility] Comment on above: Order Comment: Speci men Type: URINE SPECIMEN Ordering Facility: [facility] Address: [address] [address] Performed By: #### L [id number] #### [facility] CLIA [id number] [address] [place] [address] [place] Clarity (Unsp spec) Clear Normal Clear [facility] Comment on above: Order Comment: Speci men Type: URINE SPECIMEN Ordering Facility: [facility] Address: [address] [place] [address] Performed By: #### L [id number] #### [facility] CLIA [id number] [address] [place] [address] OF [facility] Color (U) Yellow Normal Yellow [facility] Comment on above: Order Comment: Speci men Type: URINE SPECIMEN Ordering Facility: [facility] Address: [address] [place] [address] Performed By: #### L [id number] #### [facility] CLIA [id number] [address] [place] [address] OF [facility] Epithelial cells LM.HPF (Urine sed) [#/Area] Few Normal [facility] Comment on above: Order Comment: Speci men Type: URINE SPECIMEN Ordering [facility]: [facility] Address: [address] [place] [address] Performed By: #### L [id number] #### [facility] CLIA [id number] [address] [place] [address] [facility] Glucose Test strip (U) [Mass/Vol] Negative Normal Negative [facility] Comment on above: Order Comment: Speci men Type: URINE SPECIMEN Ordering [facility]: [facility] Address: [address] [place] [address] Performed By: #### L [id number] #### [facility] CLIA [id number] [address] [place] [address] [place] Hemoglobin Ql (U) Negative Normal Negative [facility] Comment on above: Order Comment: Speci men Type: URINE SPECIMEN Ordering Facility: [facility] Address: [address] [place] [address] Performed By: #### L [id number] #### [facility] CLIA [id number] [address] [place] [address] [place] Ketones Ql (U) Trace Abnormal Negative [facility] Comment on above: Order Comment: Speci men Type: URINE SPECIMEN Ordering Facility: [facility] Address: [address] [place] [address] Performed By: #### L [id number] #### [facility] CLIA [id number] [address] [place] [address] [place] Leukocyte esterase Test strip Ql (U) Negative Normal Negative [facility] Comment on above: Order Comment: Speci men Type: URINE SPECIMEN Ordering Facility: [facility] Address: [address] [place] [address] Performed By: #### L [id number] #### [facility] CLIA [id number] [address] [place] [address] [place] Nitrite Ql (U) Negative Normal Negative [facility] Comment on above: Order Comment: Speci men Type: URINE SPECIMEN Ordering [facility]: [facility] Address: [address] [place] [address] Performed By: #### L [id number] #### [facility] CLIA [id number] [address] [place] [address] [place] pH (U) 5.5 [pH] Normal 5.0-8.0 [facility] Comment on above: Order Comment: Speci men Type: URINE SPECIMEN Ordering [facility]: [facility] Address: [address] [place] [address] Performed By: #### L [id number] #### [facility] CLIA [id number] [address] [place] [address] [place] [facility] Protein (U) [Mass/Vol] 1+ Abnormal Negative [facility] Comment on above: Order Comment: Speci men Type: URINE SPECIMEN Ordering [facility]: [facility] Address: [address] [place] [address] Performed By: #### L [id number] #### [facility] CLIA [id number] [address] [place] [address] RBC LM.HPF (Urine sed) [#/Area] 0-3 /HPF Normal 0-3 /HPF [facility] Comment on above: Order Comment: Speci men Type: URINE SPECIMEN Ordering [facility]: [facility] Address: [address] [place] [address] Performed By: #### L [id number] #### [facility] CLIA [id number] [address] [place] [address] [place] [facility] Specific gravity (U) [Rel density] >=1.030 High 1.005-1.030 [facility] Comment on above: Order Comment: Speci men Type: URINE SPECIMEN [facility]ing [facility]: [facility] Address: [address] [place] [address] Performed By: #### L [id number] #### [facility] CLIA [id number] [address] [place] [address] Urobilinogen Ql (U) 0.2 EU/dL Normal 0.2-1.0 EU/dL [facility] Comment on above: Order Comment: Speci men Type: URINE SPECIMEN Ordering [facility]: [facility] Address: [address] [place] [address] Performed By: #### L [id number] #### [facility] CLIA [id number] [address] [place] [address] WBC LM.HPF (Urine sed) [#/Area] 0-5 /HPF Normal 0-5 /HPF [facility] Comment on above: Order Comment: Speci men Type: URINE SPECIMEN Ordering Facility: [facility] Address: [address] [place] [address] Performed By: #### L [id number] #### [facility] CLIA [id number] [address] [place] [address] [place] MRI CSPINE WO CONon 04-23-19 23 [...] by: KINGSLEY HERRERA Date: 2022-04-23 06:50 Normal [facility] XR FOREIGN BODY EYEon 2022 XR FOREIGN BODY EYE EXAMINATION: XR FORE IGN BODY EYE HISTORY: Foreign body in eye COMPARISON: No relevant comparison available. FINDINGS: ORBITS: Negative for a metallic foreign body. OTHER: Negative. IMPRESSION: 1. No metallic foreign body within the orbits. Electronically authenticated by: JAYY GIVENS Date: 2022-04-20 13:52 Normal [facility] CNOVon 02-15-2022 CNOV Office Visit ([facility] ) -- NEHAL BAIG ([id number]) 1970 M Date Time Provider Department 02/15/22 [...] endo wt managmeent Dr. Jorge -needs f/up entry specialists Tarsha Jamison -needs appt with Dr. Man/Agustina-endo wt management team [phone] Has been off metformin 6 weeks + [...] and statin. Ultrasound carotids previously ordered at [facility]- 11/25/2019- 0 to 29% stenosis [...] 2020. This is a workers comp issue-through [facility]-Kimberly quiñones/Dr. Cowan. 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 Shoulder replacement surgery left 08/23/24. 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 HM: -declines flu vaccine -declines covid [...] looks fine. Vitamin D is low-please begin kdcy-kjm-qxbylwm vitamin D3 2000 units daily. Urine asymptomatic. Component Latest Ref Rng AND Units 02/10/2022 Color Yellow Yellow Clarity Clear Clear Glucose, Urine Negative Negative Bilirubin, Urine Negative Negative Ketones, Urine Negative Negative Specific [place], Ur 1.005 - 1.030 1.037 (H) Hemoglobin/Blood,Ur [...] other (Epilepsy) (more content not included)... Normal [facility] 25(OH)D3 [facility] 2021 25-hydroxyvitamin D3 [Mass/Vol] 28.2 ng/mL Low 31.0-80.0 [facility] Comment on above: Order Comment: Speci men Type: BLOOD SPECIMENOrdering Facility: [facility] Address: [address] [place] [id number] Result Comment: Clas sification of 25 [place] Vitamin D status: Deficiency/Insufficiency: < or = 30 ng/ml. Sufficiency/Optimal Levels: 31-80 ng/mL Toxicity: > 100 ng/mL. Test performed by chemiluminescent immunoassay. Performed By: #### 1 989-3 ####[facility] LABCLIA [id number] [address] [place] CBC panel Auto (Bld)on 02-10 Erythrocyte distribution width (RBC) [Ratio] 13.2 % Normal 11.5-15.0 [facility] Comment on above: Order Comment: Speci men Type: BLOOD SPECIMENOrdering Facility: [facility] Address: [address] [place] [address] Performed By: #### 5 8410-2 ####[facility] LABIA [id number] [address] Hematocrit (Bld) [Volume fraction] 41.9 % Normal 39.0-51.0 [facility] Comment on above: Order Comment: Speci men Type: BLOOD SPECIMENOrdering Facility: [facility] Address: [address] [place] [address] Performed By: #### 5 8410-2 ####[facility] LABIA [id number] [address] [place] Hemoglobin (Bld) [Mass/Vol] 13.9 g/dL Normal 13.0-17.0 [facility] Comment on above: Order Comment: Speci men Type: BLOOD SPECIMENOrdering Facility: [facility] Address: [address] [place] [address] Performed By: #### 5 8410-2 ####[facility] LABIA [id number] [address] [place] MCH (RBC) [Entitic mass] 29.0 pg Normal 26.0-34.0 [facility] Comment on above: Order Comment: Speci men Type: BLOOD SPECIMENOrdering Facility: [facility] Address: [address] [place] [address] Performed By: #### 5 8410-2 ####[facility] [id number] [place] [address] [place] MCHC (RBC) [Mass/Vol] 33.2 g/dL Normal 30.5-36.0 [facility] Comment on above: Order Comment: Speci men Type: BLOOD SPECIMENOrdering Facility: [facility] Address: [address] [place] [address] Performed By: #### 5 8410-2 ####[facility] [id number] [place] [address] [place] MCV (RBC) [Entitic vol] 87.5 fL Normal 80.0-100.0 [facility] Comment on above: Order Comment: Speci men Type: BLOOD SPECIMENOrdering Facility: [facility] Address: [address] [place] [address] Performed By: #### 5 8410-2 ####[facility] [id number] [place] [address] [place] Nucleated RBC (Bld) [#/Vol] 10*3/uL Normal <0.01 [facility] Comment on above: Order Comment: Speci men Type: BLOOD SPECIMENOrdering Facility: [facility] Address: [address] [place], [place] [address] Performed By: #### 5 8410-2 ####[facility] [id number] [place] [address] [place] Platelet mean volume (Bld) [Entitic vol] 10.6 fL Normal 9.0-12.7 [facility] Comment on above: Order Comment: Speci men Type: BLOOD SPECIMENOrdering Facility: [facility] Address: [address] [place], [place] [address] Performed By: #### 5 8410-2 ####[facility] LAB[facility] [id number] [place] [address] [place] Platelets (Bld) [#/Vol] 198 10*3/uL Normal 150-400 [facility] Comment on above: Order Comment: Speci men Type: BLOOD SPECIMENOrdering Facility: [facility] Address: [address] [place], [place] [address] Performed By: #### 5 8410-2 ####[facility] LABCLIA [id number] [facility] [place] [address] [place] RBC (Bld) [#/Vol] 4.79 10*6/uL Normal 4.20-6.00 [facility] Comment on above: Order Comment: Speci men Type: BLOOD SPECIMENOrdering Facility: [facility] Address: [address] [place], [place] [address] Performed By: #### 5 8410-2 ####[facility] LABCLIA [id number] [facility] [place] [address] [place] WBC (Bld) [#/Vol] 6.46 10*3/uL Normal 3.70-11.00 [facility] Comment on above: Order Comment: Speci men Type: BLOOD SPECIMENOrdering Facility: [facility] Address: [address] [place], [place] [address] Performed By: #### 5 8410-2 ####[facility] LABCLIA [id number] [facility] [place] [address] [place] Comprehensive metabolic 2000 panelon 02-10-2022 Albumin [Mass/Vol] 4.5 g/dL Normal 3.9-4.9 [facility] Comment on above: Order Comment: Speci men Type: BLOOD SPECIMENOrdering Facility: [facility] Address: [address] [place], [place] [address] Performed By: #### 3 016-3, 73939-4 ####[facility] LABCLIA [id number] [facility] [place] [address] [place]#### 17927-3 ####[facility] LABCLIA [id number] [address] [address] [place] [facility] LABORATORYCLIA [id number] [place] [address] [place] ALP [Catalytic activity/Vol] 85 U/L Normal 38-113 [facility] Comment on above: Order Comment: Speci men Type: BLOOD SPECIMENOrdering Facility: [facility] Address: [address] [address] Performed By: #### 3 016-3, 32991-8 ####[facility] LABCLIA [id number] [place] [address] [place]#### 94692-1 ####[facility] LABCLIA [id number] [place] [address] [place] [facility] LABORATORYCLIA [id number] [place] [address] [place] ALT [Catalytic activity/Vol] 34 U/L Normal 10-54 [facility] Comment on above: Order Comment: Speci men Type: BLOOD SPECIMENOrdering Facility: [facility] Address: [address] Performed By: #### 3 016-3, 45812-2 ####[facility] LABCLIA [id number] [place] [id number] [place]#### 49414-6 ####[facility] LABCLIA [id number] [place] [id number] [place] [facility] [place] LABORATORYCLIA [id number] [place] [address] [place] Anion gap [Moles/Vol] 10 mmol/L Normal 9-18 [facility] Comment on above: Order Comment: Speci men Type: BLOOD SPECIMENOrdering Facility: [facility] Address: [address] [place] [address] Performed By: #### 3 016-3, 62165-1 ####[facility] LABCLIA [id number] [address] [address] [place]#### 51449-3 ####[facility] LABCLIA [id number] [place] [id number] [facility] OF [facility] [place] LABORATORYCLIA [id number] [place] [address] [place] AST [Catalytic activity/Vol] 25 U/L Normal 14-40 [facility] Comment on above: Order Comment: Speci men Type: BLOOD SPECIMENOrdering Facility: [facility] Address: [address] [place] [address] Performed By: #### 3 016-3, 72603-0 ####[facility] LABCLIA [id number] [place] [address] [place]#### 14115-2 ####[facility] LABCLIA [id number] [address] STATES OF [facility] [place] LABORATORYCLIA [id number] [place] [address] [place] Bilirubin [Mass/Vol] 0.4 mg/dL Normal 0.2-1.3 [facility] Comment on above: Order Comment: Speci men Type: BLOOD SPECIMENOrdering Facility: [facility] Address: [address] [place] [address] Performed By: #### 3 016-3, 49391-8 ####[facility] LABCLIA [id number] [place] [address] [place]#### 81030-9 ####[facility] LABCLIA [id number] [place] [id number] [place] [facility] [place] LABORATORYCLIA [id number] [place] [address] [place] Calcium [Mass/Vol] 9.3 mg/dL Normal 8.5-10.2 [facility] Comment on above: Order Comment: Speci men Type: BLOOD SPECIMENOrdering Facility: [facility] Address: [address] [place] [address] Performed By: #### 3 016-3, ####[facility] LABCLIA [id number] [facility] [place] [address] [place]#### 08116-4 ####[facility] LABCLIA [id number] [facility] [place] [address] [place] [facility]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 mEq/L [facility] Remisol Chloride [Moles/Vol] 104 mmol/L Normal 101 - 1 11 mmol/L [facility] Remisol CO2 [Moles/Vol] 25 mmol/L Normal 21 - 31 mmol/L [facility] Remisol Creatinine [Mass/Vol] 0.8 mg/dL Normal 0.5 - 1.3 mg/dL [facility] Remisol GFR/1.73 sq M.predicted among blacks MDRD (S/P/Bld) [Vol rate/Area] mL/min/1.73 m2 Normal >=59mL/min/ 1.73 m2 [facility] Chem S GFR/1.73 sq M.predicted among non-blacks MDRD (S/P/Bld) [Vol rate/Area] mL/min/1.73 m2 Normal >=59mL/min/ 1.73 m2 [facility] Chem S Glucose [Mass/Vol] 103 mg/dL Normal [...] Ql (Urine sed) Trace /HPF Normal Trace/HPF [facility] Auto SS Bilirubin Ql (U) Negative [...] AM) Normal Negative [facility] UA Auto SS Annetta.plasma/Lithi um.RBC (Bld) [Mass ratio] 0-3 /HPF Normal [...] [facility] UA Auto SS Urobilinogen Qn (U) 0.1364744 {Sean'U}/dL Normal 0.0 - 1.0 EU/dL [facility] UA Auto SS WBC Auto Ql (U) Negative (08/08/21 10:04 AM) Normal Negative [facility] UA Auto SS WBC LM.HPF (Urine sed) [#/Area] 0-5 /HPF Normal 0-5/HPF [facility] UA Auto SS ANES POSTPROC EVALon 022 ANES POSTPROC EVAL HNO ID: [id number] Author: Lucy Flanagan MD Service: Anesthesiology Author Type: Anesthesiologist Type: Anesthesia Postprocedure Evaluation Filed: 07/31/2021 12:56 PM Note Text: POST ANESTHESIA EVALUATION NOTE : 1970 Procedure Summary Date: 07/31/21 Room / Location: [facility] Endoscopy Anesthesia Start: 1053 Anesthesia Stop: 1145 Procedure: COLONOSCOPY DIAGNOSTIC Diagnosis: Dark stools (OTHER) Scheduled Providers: Jayy Patel MD; Cori Ashley APRN.CRNA; Lucy Flanagan MD Responsible Provider: Lucy Flaangan MD Anesthesia Type: MAC ASA Status: 3 [...] July 31, 2021 TIME: 12:55 PM CSN: [id number] Normal [facility] ANES PRE-OPon 07-31-2021 ANES PRE-OP HNO ID: [id number] Author: Lucy Flanagan MD Service: Anesthesiology Author Type: Anesthesiologist Type: Anesthesia Preprocedure Evaluation Filed: 07/31/2021 9:50 AM Note Text: ANESTHESIOLOGY DAY OF SURGERY NOTE : 1970 Procedure Information Date/Time: 07/31/21 1030 Scheduled providers: Jayy Patel MD; Cori Ashley APRN.CRNA; Lucy Flnaagan MD Procedure: COLONOSCOPY DIAGNOSTIC Location: [facility] Endoscopy Estimated body mass index is [...] daily. via spacer - peg 3350-Electrolytes (GOLYTELY) -22.74-6.74 -5.86 gram suspension Refer to printed prep [...] July 31, 2021 TIME: 9:49 AM CSN: [id number] Normal [facility] COLONOSCOPY DIAGNOSTICon [facility] HISTORY PHYSICALon HISTORY PHYSICAL HNO ID: [id number] Author: Jayy Patel MD Service: General Surgery [...] July 31, 2021 TIME: 10:58 AM [facility] SURGICAL PATHOLOGYon 022 CASE REPORT Normal [facility] Comment on above: Order Comment: Speci men Type: TISSUE SPECIMEN Ordering Facility: [facility] Address: [address] [place] [id number] Result Comment: [facility] Pathology Report Case: [id number] Authorizing Provider: Jayy Patel MD Collected: 07/31/2021 11:31 AM Ordering Location: [facility] Endoscopy Received: 07/31/2021 02:15 PM Pathologist: Luis F Quiroz MD Specimen: SIGMOID COLON POLYP Performed By: #### S #### [facility] CLIA [id number] [place] [address] FINAL DIAGNOSIS [facility] Comment on above: Order Comment: Speci men Type: TISSUE SPECIMEN Ordering Facility: [facility] Address: [address] [place] [address] Result Comment: Sigm oid colon polyp, biopsy: - Tubular adenoma. JEL 08/01/2021 Performed By: #### S #### [facility] CLIA [id number] [address] [place] [address] [place] FINAL PERFORMING LAB Normal [facility] Comment on above: Order Comment: Speci men Type: TISSUE SPECIMEN Ordering Facility: [facility] Address: [address] [place] [address] Result Comment: Diag nostic interpretation performed at [facility], [address] [place] [address] CLIA# [id number] [employer] Set Up Operator: Nehal Cid M.D. Performed By: #### S #### [facility] CLIA [id number] [address] [place] [address] GROSS DESCRIPTION [facility] Comment on above: Order Comment: Speci men Type: TISSUE SPECIMEN Ordering Facility: [facility] Address: [address] [place] [address] Result Comment: A. S IGMOID COLON POLYP. Received in formalin are multiple pieces of kaufman, soft tissue aggregating to 1.8 x 0.3 x 0.2 cm. Totally submitted in one cassette. SS July 31, 2021 7:11 PM Gross examination performed at [facility], [address] [place] [address] Performed By: #### S #### [facility] CLIA [id number] [address] [place] [address] [place] CBC panel Auto (Bld)on 07-29 Erythrocyte distribution width (RBC) [Ratio] 12.5 % Normal 11.5-15.0 [facility] Comment on above: Order Comment: Speci men Type: URINE SPECIMEN Ordering Facility: [facility] Address: [address] [place] [address] Performed By: #### L [id number] #### [facility] CLIA [id number] [address] [place] [address] [place] Hematocrit (Bld) [Volume fraction] 39.4 % Normal 39.0-51.0 [facility] Comment on above: Order Comment: Speci men Type: URINE SPECIMEN Ordering Facility: [facility] Address: [address] [place] [address] Performed By: #### L [id number] #### [facility] CLIA [id number] [address] [place] [address] [place] Hemoglobin (Bld) [Mass/Vol] 13.6 g/dL Normal 13.0-17.0 [facility] Comment on above: Order Comment: Speci men Type: URINE SPECIMEN Ordering Facility: [facility] Address: [address] [place] [address] Performed By: #### L [id number] #### [facility] CLIA [id number] [address] [place] [address] [place] MCH (RBC) [Entitic mass] 29.3 pg Normal 26.0-34.0 [facility] Comment on above: Order Comment: Speci men Type: URINE SPECIMEN Ordering Facility: [facility] Address: [address] [place] [address] Performed By: #### L [id number] #### [facility] CLIA [id number] [address] [place] [address] [place] MCHC (RBC) [Mass/Vol] 34.5 g/dL Normal 30.5-36.0 [facility] Comment on above: Order Comment: Speci men Type: URINE SPECIMEN Ordering Facility: [facility] Address: [address] [place] [address] Performed By: #### L [id number] #### [facility] CLIA [id number] [address] [place] [address] [place] MCV (RBC) [Entitic vol] 84.9 fL Normal 80.0-100.0 [facility] Comment on above: Order Comment: Speci men Type: URINE SPECIMEN Ordering Facility: [facility] Address: [address] [place] [address] Performed By: #### L [id number] #### [facility] CLIA [id number] [address] [place] [address] [place] Nucleated RBC (Bld) [#/Vol] 10*3/uL Normal <0.01 [facility] Comment on above: Order Comment: Speci men Type: URINE SPECIMEN Ordering Facility: [facility] Address: [address] [place], [place] [address] Performed By: #### L [id number] #### [facility] CLIA [id number] [address] [place] [address] [place] Platelet mean volume (Bld) [Entitic vol] 9.9 fL Normal 9.0-12.7 [facility] Comment on above: Order Comment: Speci men Type: URINE SPECIMEN Ordering Facility: [facility] Address: [address] [place], [place] [address] Performed By: #### L [id number] #### [facility] CLIA [id number] [address] [place] [address] [place] Platelets (Bld) [#/Vol] 187 10*3/uL Normal 150-400 [facility] Comment on above: Order Comment: Speci men Type: URINE SPECIMEN Ordering Facility: [facility] Address: [address] [place], [place] [address] Performed By: #### L [id number] #### [facility] CLIA [id number] [address] [place] [address] [place] RBC (Bld) [#/Vol] 4.64 10*6/uL Normal 4.20-6.00 [facility] Comment on above: Order Comment: Speci men Type: URINE SPECIMEN Ordering Facility: [facility] Address: [address] [place], [place] [address] Performed By: #### L [id number] #### [facility] CLIA [id number] [address] [place], [place] [address] [facility] [place] WBC (Bld) [#/Vol] 5.29 10*3/uL Normal 3.70-11.00 [facility] Comment on above: Order Comment: Speci men Type: URINE SPECIMEN Ordering Facility: [facility] Address: [address] [place], [place] [address] Performed By: #### L [id number] #### [facility] CLIA [id number] [address] [place], [place] [address] [facility] Comprehensive metabolic 2000 panelon 07-29-2021 Albumin [Mass/Vol] 4.6 g/dL Normal 3.9-4.9 [facility] Comment on above: Order Comment: Speci men Type: BLOOD SPECIMENOrdering Facility: [facility] Address: [address] [place] [address] Performed By: #### L IPB, 22584-3 ####[facility] LABCLIA [id number] [place] [address] [place] ALP [Catalytic activity/Vol] 80 U/L Normal 38-113 [facility] Comment on above: Order Comment: Speci men Type: BLOOD SPECIMENOrdering Facility: [facility] Address: [address] [place], [place] [address] Performed By: #### L IPB, 77723-0 ####[facility] LABCLIA [id number] [place] [id number] [place] ALT [Catalytic activity/Vol] 58 U/L High 10-54 [facility] Comment on above: Order Comment: Speci men Type: BLOOD SPECIMENOrdering Facility: [facility] Address: [address] [place], [place] [address] Performed By: #### L IPB, 47428-1 ####[facility] LABCLIA [id number] [place] [id number] [place] Anion gap [Moles/Vol] 7 mmol/L Low 9-18 [facility] Comment on above: Order Comment: Speci men Type: BLOOD SPECIMENOrdering Facility: [facility] Address: [address] [place] [address] Performed By: #### L IPB, 80767-0 ####[facility] LABCLIA [id number] [place] [id number] [place] AST [Catalytic activity/Vol] 39 U/L Normal 14-40 [facility] Comment on above: Order Comment: Speci men Type: BLOOD SPECIMENOrdering Facility: [facility] Address: [address] [place] [address] Performed By: #### L KIERRAB, 33296-8 ####[facility] LABCLIA [id number] [place] [id number] [place] Bilirubin [Mass/Vol] 0.4 mg/dL Normal 0.2-1.3 [facility] Comment on above: Order Comment: Speci men Type: BLOOD SPECIMENOrdering Facility: [facility] Address: [address] [place] [address] Performed By: #### L IPB, 38023-1 ####[facility] LABCLIA [id number] [place] [id number] [place] Calcium [Mass/Vol] 9.8 mg/dL Normal 8.5-10.2 [facility] Comment on above: Order Comment: Speci men Type: BLOOD SPECIMENOrdering Facility: [facility] Address: [address] [place] [address] Performed By: #### L IPB, 88906-3 ####[facility] LABCLIA [id number] [place] [id number] [place] Chloride [Moles/Vol] 104 mmol/L Normal 97-105 [facility] Comment on above: Order Comment: Speci men Type: BLOOD SPECIMENOrdering Facility: [facility] Address: [address] [place] [address] Performed By: #### L IPB, 32214-9 ####[facility] LABCLIA [id number] [place] [address] [place] CO2 [Moles/Vol] 28 mmol/L Normal 22-30 [facility] Comment on above: Order Comment: Speci men Type: BLOOD SPECIMENOrdering Facility: [facility] Address: [address] [place] [address] Performed By: #### L IPB, 25300-8 ####[facility] LABCLIA [id number] [place] [id number] [place] Creatinine [Mass/Vol] 0.98 mg/dL Normal 0.73-1.22 [facility] Comment on above: Order Comment: Speci men Type: BLOOD SPECIMENOrdering Facility: [facility] Address: [address] [place] [address] Performed By: #### L IPB, 78595-4 ####[facility] LABCLIA [id number] [place] [address] [place] ESTIMATED GLOMERULAR FILTRATION RATE 95 mL/min/1.73m??? Normal >=60 [facility] Comment on above: Order Comment: Speci men Type: BLOOD SPECIMENOrdering Facility: [facility] Address: [address] [place] [address] Result Comment: Halle mated Glomerular Filtration Rate [...] actual GFR. Performed By: #### L IPB, 07843-9 ####[facility] LABCLIA [id number] [place] [address] [place] Glucose [Mass/Vol] 120 mg/dL High 74-99 [facility] Comment on above: Order Comment: Speci men Type: BLOOD SPECIMENOrdering Facility: [facility] Address: [address] [place] [address] Result Comment: The [place] Diabetes Association (ADA) provides guidance for cutoff [...] Medical Care in Diabetes 2016, [place] Diabetes Association. Diabetes Care. 2016.39(Suppl 1). Performed By: #### L IPB, 22619-5 ####[facility] LABCLIA [id number] [place] [address] [place] Potassium [Moles/Vol] 4.7 mmol/L Normal 3.7-5.1 [facility] Comment on above: Order Comment: Speci men Type: BLOOD SPECIMENOrdering Facility: [facility] Address: [address] [place] [address] Performed By: #### L IPB, 81069-9 ####[facility] LABCLIA [id number] [place] [id number] [place] Protein [Mass/Vol] 7.6 g/dL Normal 6.3-8.0 [facility] Comment on above: Order Comment: Speci men Type: BLOOD SPECIMENOrdering Facility: [facility] Address: [address] [place] [address] Performed By: #### L IPB, 34181-2 ####[facility] LABCLIA [id number] [place] [address] [place] Sodium [Moles/Vol] 139 mmol/L Normal 136-144 [facility] Comment on above: Order Comment: Speci men Type: BLOOD SPECIMENOrdering Facility: [facility] Address: [address] [place] [address] Performed By: #### L IPB, 16116-0 ####[facility] LABCLIA [id number] [place] [id number] [place] [facility] Urea nitrogen [Mass/Vol] 18 mg/dL Normal 9-24 [facility] Comment on above: Order Comment: Speci men Type: BLOOD SPECIMENOrdering Facility: [facility] Address: [address] [place] [address] Performed By: #### L IPB, 14424-9 ####[facility] LABCLIA [id number] [address] HGB A1Con 07-29-2021 Average glucose Estimated from glycated hemoglobin (Bld) [Mass/Vol] 117 mg/dL Normal [facility] Comment on above: Order Comment: Speci men Type: BLOOD SPECIMENOrdering Facility: [facility] Address: [address] [place] [address] Result Comment: eAG: (Estimated average glucose) is a calculated value from HgbA1c and is underwriting sales representative of the average blood glucose level in the last 2-3 month period. Performed By: #### H BA1C ####[facility] LABIA [id number] [address] STATES [facility] HbA1c (Bld) [Mass fraction] 5.7 % High 4.3-5.6 [facility] Comment on above: Order Comment: Speci men Type: BLOOD SPECIMENOrdering Facility: [facility] Address: [address] [place] [address] Result Comment: [place] Diabetes Association guidelines indicate that patients with HgbA1c in the range 5.7-6.4% are at increased risk for development of diabetes, and intervention by lifestyle modification may be beneficial. HgbA1c greater or equal to 6.5% is considered diagnostic of diabetes. Performed By: #### H BA1C ####[facility] LABCLIA [id number] [place] [address] [facility] LIPID PANEL BASICon 07-30-19 22 Cholesterol [Mass/Vol] 240 mg/dL High <200 [facility] Comment on above: Order Comment: Speci men Type: BLOOD SPECIMENOrdering Facility: [facility] Address: [address] [place] [address] Result Comment: <200 mg/dL, Desirable 200-239 mg/dL, Borderline high >239 mg/dL, High Performed By: #### L FILIPE, 59150-0 ####[facility] LABCLIA [id number] [address] [place] Cholesterol in HDL [Mass/Vol] 37 mg/dL Low >39 [facility] Comment on above: Order Comment: Speci men Type: BLOOD SPECIMENOrdering Facility: [facility] Address: [address] [place] [address] Result Comment: 40-5 9 mg/dL, Acceptable >59 mg/dL, High: Negative risk factor for coronary heart disease <40 mg/dL, Low: Positive risk factor for coronary heart disease Performed By: #### Kim DENT, 05205-3 ####[facility] LABCLIA [id number] [address] [place] OF [facility] Cholesterol in LDL [Mass/Vol] 175 mg/dL High <100 [facility] Comment on above: Order Comment: Speci men Type: BLOOD SPECIMENOrdering Facility: [facility] Address: [address] [place] [address] Result Comment: <100 mg/dL, Optimal 100-129 mg/dL, Near optimal/above optimal 130-159 mg/dL, Borderline high 160-189 mg/dL, High >189 mg/dL, Very high Secondary prevention optimal LDL Cholesterol levels are recommended to be < 70 mg/dL Performed By: #### L KIERRAB, 30892-2 ####[facility] LABCLIA [id number] [place] [id number] [place] Cholesterol in LDL/Cholesterol in HDL [Mass ratio] 4.73 {ratio} High <2.54 [facility] Comment on above: Order Comment: Speci men Type: BLOOD SPECIMENOrdering Facility: [facility] Address: [address] [place] [address] Result Comment: Doris tucker: 1. National Cholesterol Education Program ATP III Guideline At-A-Glance Quick Desk Reference: National Heart, Lung, and Blood [place]. National Institutes of Health. 2001: NIH Publication No. 01-3305. 2. An International Atherosclerosis Society position paper: global recommendations for the management of dyslipidemia: executive summary, Atherosclerosis. 2014: 232(2):410-413. Performed By: #### L KIERRAB, 63860-6 ####[facility] LABCLIA [id number] [place] [id number] [place] Cholesterol in VLDL [Mass/Vol] 28 mg/dL Normal <30 [facility] Comment on above: Order Comment: Speci men Type: BLOOD SPECIMENOrdering Facility: [facility] Address: [address] [place] [address] Performed By: #### L IPB, 48051-7 ####[facility] LABCLIA [id number] [address] [place] Cholesterol non HDL [Mass/Vol] 203 mg/dL High <130 [facility] Comment on above: Order Comment: Speci men Type: BLOOD SPECIMENOrdering Facility: [facility] Address: [address] [place] [address] Result Comment: <130 mg/dL, Optimal 130-159 mg/dL, Near optimal/above optimal 160-189 mg/dL, Borderline high 190-219 mg/dL, High >219 mg/dL, Very high Secondary prevention optimal non HDL Cholesterol levels are recommended to be <100 mg/dL Performed By: #### L IPB, 34274-8 ####[facility] LABCLIA [id number] [place] [address] [place] Cholesterol.total/Ch olesterol in HDL [Mass ratio] 6.49 {ratio} High <5.10 [facility] Comment on above: Order Comment: Speci men Type: BLOOD SPECIMENOrdering Facility: [facility] Address: [address] [place] [address] Performed By: #### L FILIPE, 12839-3 ####[facility] LABCLIA [id number] [place] [id number] [place] FASTING TIME 12. hrs Normal [facility] Comment on above: Order Comment: Speci men Type: BLOOD SPECIMENOrdering Facility: [facility] Address: [address] [place] [address] Performed By: #### L KIERRAB, 08730-2 ####[facility] LABIA [id number] [place] [id number] [place] Triglyceride [Mass/Vol] 140 mg/dL Normal <150 [facility] Comment on above: Order Comment: Speci men Type: BLOOD SPECIMENOrdering Facility: [facility] Address: [address] [place] [address] Result Comment: <150 mg/dL, Normal 150-199 mg/dL, Borderline high 200-499 mg/dL, High >499 mg/dL, Very high Performed By: #### L FILIPE, 76306-2 ####[facility] LABIA [id number] [place] [address] [place] PSA/PROSTSPECAG SCRNon 07-29 Prostate specific Ag [Mass/Vol] 0.41 ng/mL Normal <2.60 [facility] Comment on above: Order Comment: Speci men Type: BLOOD SPECIMENOrdering Facility: [facility] Address: [address] [place] [address] Result Comment: Tota l PSA test methodology used is the Electrochemiluminescence Immunoassay by [employer]. Total PSA values by differing methodologies cannot be interchanged. Performed By: #### P SAS1 ####[facility] LABCLIA [id number] [place] [address] [place] TSH SerPl-aCncon 07-29-2021 TSH Qn 4.060 m[IU]/L Normal 0.270-4.200 [facility] Comment on above: Order Comment: Speci men Type: BLOOD SPECIMENOrdering Facility: [facility] Address: [address] [place], [place] [address] Performed By: #### 3 016-3 ####[facility] LABCLIA [id number] [facility]AMPUSDominik KISMETDESK [place] [address] [place] URINALYSIS, REFLEX MICROSCOP ICon 07-29-2021 Bilirubin Ql (U) Negative Normal Negative [facility] Comment on above: Order Comment: Speci men Type: URINE SPECIMEN Ordering Facility: [facility] Address: [address] [place] [address] Performed By: #### L [id number] #### [facility] CLIA [id number] [address] [place] [address] [place] Clarity (Unsp spec) Clear Normal Clear [facility] Comment on above: Order Comment: Speci men Type: URINE SPECIMEN Ordering Facility: [facility] Address: [address] [place] [address] Performed By: #### L [id number] #### [facility]ITAL[facility] CLIA [id number] [address] [place] [address] [place] [facility] Color (U) Yellow Normal Yellow [facility] Comment on above: Order Comment: Speci men Type: URINE SPECIMEN Ordering Facility: [facility] Address: [address] [place] [address] Performed By: #### L [id number] #### [facility]ITALRa[facility] CLIA [id number] [address] [place] [address] [place] Glucose Test strip (U) [Mass/Vol] Negative Normal Negative [facility] Comment on above: Order Comment: Speci men Type: URINE SPECIMEN Ordering [facility]: [facility] Address: [address] [place] [address] Performed By: #### L [id number] #### [facility]ITALRa[facility] CLIA [id number] [address] [place] [address] [place] Hemoglobin Ql (U) Negative Normal Negative [facility] Comment on above: Order Comment: Speci men Type: URINE SPECIMEN Ordering Facility: [facility] Address: [address] [place] [address] Performed By: #### L [id number] #### [facility] CLIA [id number] [address] [place] [address] [place] Ketones Ql (U) Negative Normal Negative [facility] Comment on above: Order Comment: Speci men Type: URINE SPECIMEN Ordering [facility]: [facility] Address: [address] [place] [address] Performed By: #### L [id number] #### [facility] CLIA [id number] [address] [place] [address] [place] Leukocyte esterase Test strip Ql (U) Negative Normal Negative [facility] Comment on above: Order Comment: Speci men Type: URINE SPECIMEN Ordering [facility]: [facility] Address: [address] [place] [address] Performed By: #### L [id number] #### [facility] CLIA [id number] [address] [place] [address] [place] Nitrite Ql (U) Negative Normal Negative [facility] Comment on above: Order Comment: Speci men Type: URINE SPECIMEN Ordering [facility]: [facility] Address: [address] [place] [address] Performed By: #### L [id number] #### [facility] CLIA [id number] [address] [place] [address] [place] pH (U) 5.5 [pH] Normal 5.0-8.0 [facility] Comment on above: Order Comment: Speci men Type: URINE SPECIMEN [facility]ing [facility]: [facility] Address: [address] [place] [address] Performed By: #### L [id number] #### [facility] CLIA [id number] [address] [place] [address] [place] Protein (U) [Mass/Vol] Negative Normal Negative [facility] Comment on above: Order Comment: Speci men Type: URINE SPECIMEN [facility]ing [facility]: [facility] Address: [address] [place] [address] Performed By: #### L [id number] #### [facility] CLIA [id number] [address] [place] [address] [place] Specific gravity (U) [Rel density] 1.025 Normal 1.005-1.030 [facility] Comment on above: Order Comment: Speci men Type: URINE SPECIMEN [facility]ing [facility]: [facility] Address: [address] [place] [address] Performed By: #### L [id number] #### [facility] CLIA [id number] [address] [place] [address] [place] Urobilinogen Ql (U) 0.2 EU/dL Normal 0.2-1.0 EU/dL [facility] Comment on above: Order Comment: Speci men Type: URINE SPECIMEN [facility]ing [facility]: [facility] Address: [address] [place] [address] Performed By: #### L [id number] #### [facility] CLIA [id number] [address] [place] [address] [place] VITAMIN D 25 HYDROXYon 07-29 25-hydroxyvitamin D3 [Mass/Vol] 29.1 ng/mL Low 31.0-80.0 [facility] Comment on above: Order Comment: Speci men Type: BLOOD SPECIMENOrdering Facility: [facility] Address: [address] [place], [place] [address] Result Comment: Clas sification of 25 [place] Vitamin D status: Deficiency/Insufficiency: < or = 30 ng/ml. Sufficiency/Optimal Levels: 31-80 ng/mL Toxicity: > 100 ng/mL. Test performed by chemiluminescent immunoassay. Performed By: #### V ITD ####[facility] LABCLIA [id number] [place] [address] [place] HISTORY PHYSICALon HISTORY PHYSICAL HNO ID: [id number] Author: Prisca Van PA-C Service: ? Author Type: Physician [employer] Type: HANDP Filed: 07/26/2021 1:52 PM Note Text: [facility]HESIA CON[facility]ULT [facility] This is a virtual visit. It required patient-provider interaction for the medical decision making as documented below. Patient has been identified by name and date of : Yes Reason for call: PACC visit Accompanied by: Self Patient name: Nehal Baig Scheduled Surgery: colonoscopy 07/31/2021 at [facility] CHIEF COMPLAINT: Patient presents with: Outpatient Colonoscopy [...] fevers. Neuro: No history of TIA's, stroke, TRUST VAULT CLERK tumor, impaired sensorium, hemiplegia, paraplegia or quadraplegia. No neurological symptoms or problems. Respiratory: No history of current cough or dyspnea, or pneumonia in the past 6 weeks. +asthma-uses Flovent daily, albuterol 3-5 times/week +JACOBY- BiPAP nightly +lung nodules Cardiovascular: No history of angina, CHF, NH, cardiac surgery or stents. Denies rest pain, [...] carotid puls (more content not included)... Normal [facility] CNOVon 07-25-2021 CNOV Office Visit ([facility] ) -- NEHAL BAIG ([id number]) 1970 M Date Time Provider Department 07/25/21 9:20 AM SALOME AGUILLON [facility] During your visit today, we recorded the following information about you: Pulse Blood pressure Weight Height 88/minute 136/78 182.3 kg 1.854 m Salome Aguillon APRN.STREET AND BUILDING DECORATOR 07/25/2021 5:32 PM Signed This note was [...] or Coly (more content not included)... [facility]AKESH [facility] ([facility]) -- NEHAL BAIG ([id number]) 1970 M Date Time Provider Department [facility] your visit today, we recorded the following information about you: Beatriz Cowan 07/25/2021 11:22 AM Signed [facility] states the Golytely is on backorder. They have the Newlytely in stock. Is it OK to substitute? Please advise. [phone]. Beatriz Cowan July 25, 2021 11:22 AM [...] Status:Closed by SALOME AGUILLON on 07/25/21 Normal [facility] CT CHEST WO IVCONon 02-14-20 Radiology Result ACTIONABLE Abnormal [facility] Basic Metab w/rfx MGon 08-02 (cont.) Normal [facility] Comment on above: Result Comment: Aver age GFR for 40-49 years old: 99 mL/min/1.73sq m Chronic Kidney Disease: <60 mL/min/1.73sq m Kidney failure: <15 mL/min/1.73sq m eGFR calculated using average adult body mass. Additional eGFR calculator available at: http://www.[employer].LiveMinutes/multiple_crcl_2012.htm Performed By: #### Krissy REYNA BMPX ####[facility] HospitalCooperation TechnologyNuopfamshhtm9749 [place] [id number] Lab Director: Nate Stafford MD Anion gap [Moles/Vol] 11 mmol/L Normal 9-17 [facility] Comment on above: Performed By: #### Krissy REYNA BMPX ####[facility] [address] [place], [place] [phone] lab Director: Nate Stafford MD Calcium [Mass/Vol] 8.5 mg/dL Low 8.6-10.4 [facility] Comment on above: Performed By: #### C BC, BMPX ####[facility] [address] [place], [place] [phone] Director: Nate Stafford MD Chloride [Moles/Vol] 101 mmol/L Normal 98-107 [facility] Comment on above: Performed By: #### C BC, BMPX ####[facility] [address] [place], [place] [phone] Director: Nate Stafford MD CO2 [Moles/Vol] 23 mmol/L Normal 20-31 [facility] Comment on above: Performed By: #### C BC, BMPX ####[facility] [address]fl[address] [place], [place] [phone] Director: Nate Stafford MD Creatinine [Mass/Vol] 0.62 mg/dL Low 0.70-1.20 [facility] Comment on above: Performed By: #### C BC, BMPX ####[facility] [address]qmbq40[address] [place], [place] [phone] Director: Nate Stafford MD GFR, Amer >60 Normal >60 [facility] Comment on above: Performed By: #### C BC, BMPX ####[facility] [address] [place], [place] [phone] Director: Nate Stafford MD GFR,non Amer >60 Normal >60 [facility] Comment on above: Performed By: #### C BC, BMPX ####[facility] [address]tyl[address] [place], [place] [phone] Director: Nate Stafford MD Glucose [Mass/Vol] 120 mg/dL High 70-99 [facility] Comment on above: Performed By: #### C BC, BMPX ####[facility] [address]eqpkfmsduu2942 [place], [place] [phone] Director: Nate Stafford MD Potassium [Moles/Vol] 4.3 mmol/L Normal 3.7-5.3 [facility] Comment on above: Performed By: #### C BC, BMPX ####[facility] [address]ts[address] [place] [address] Lab Director: Nate Stafford MD Sodium [Moles/Vol] 135 mmol/L Normal 135-144 [facility] Comment on above: Performed By: #### C BC, BMPX ####[facility] [address]32[address] [place], [place] [phone] Director: Nate Stafford MD Urea nitrogen [Mass/Vol] 14 mg/dL Normal - [facility] Comment on above: Performed By: #### C BC, BMPX ####[facility] [address]aqbn[address] [place] [address] Lab Director: Nate Stafford MD BUN/CRE Ratio NOT REPORTED Normal - [facility] Comment on above: Performed By: #### C BC, BMPX ####[facility] [address]ylp[address] [place] [address] Lab Director: Nate Stafford MD Staging: NOT REPORTED Normal [facility] Comment on above: Performed By: #### C BC, BMPX ####[facility] [address] [place] [address] Lab Director: Nate Stafford MD Basic Metabolic Panel w/ Ref johnny to MGOrdered By: Halina Pathak on 08-02-2020 Anion gap [Moles/Vol] 11 mmol/L 9 - 17 mmol/L [employer] Phone: Calcium [Mass/Vol] 8.5 mg/dL Low 8.6 - 10. 4 mg/dL [employer] Phone: Chloride [Moles/Vol] 101 mmol/L 98 - 10 7 mmol/L [employer] Phone: CO2 [Moles/Vol] 23 mmol/L 20 - 31 mmol/L [employer] Phone: Creatinine [Mass/Vol] 0.62 mg/dL Low 0.70 - 1.20 mg/dL [employer] Phone: GFR >60 >60 mL/min [employer] Phone: GFR Non- >60 >60 mL/min [employer] Phone: GFR/1.73 sq M.predicted MDRD (S/P/Bld) [Vol rate/Area] [employer] Phone: Comment on above: Average GFR for 40-4 9 years old: 99 mL/min/1.73sq m Chronic Kidney Disease: <60 mL/min/1.73sq m Kidney failure: <15 mL/min/1.73sq m eGFR calculated using average adult body mass. Additional eGFR calculator available at: http://www.[employer]/multiple_crcl_2012.htm GFR/1.73 sq M.predicted MDRD (S/P/Bld) [Vol rate/Area] NOT REPORTED [employer] Phone: Glucose [Mass/Vol] 120 mg/dL High 70 - 99 mg/dL [employer] Phone: Interpretation and review of laboratory results Abnormal [employer] Phone: Potassium [Moles/Vol] 4.3 mmol/L 3.7 - 5.3 mmol/L [employer] Phone: Sodium [Moles/Vol] 135 mmol/L 135 - 144 mmol/L [employer] Phone: Urea nitrogen (BldV) [Mass/Vol] 14 mg/dL 6 - 20 mg/dL [employer] Phone: Urea nitrogen/Creatinine (Bld) [Mass ratio] NOT REPORTED [employer] Phone: CBCon 08-02-2020 Erythrocyte distribution width (RBC) [Ratio] 13.0 % Normal 11.8-14.4 [facility] Comment on above: Performed By: #### C BC, BMPX ####[facility] [address] [place] [address] Lab Director: Nate Stafford MD Hematocrit (Bld) [Volume fraction] 41.8 % Normal 40.7-50.3 [facility] Comment on above: Performed By: #### C BC, BMPX ####[facility] [address] [place] [address] [phone] Director: Nate Stafford MD Hemoglobin (Bld) [Mass/Vol] 13.8 g/dL Normal 13.0-17.0 [facility] Comment on above: Performed By: #### C BC, BMPX ####[address] [address] Lab Director: Nate Stafford MD MCH (RBC) [Entitic mass] 29.3 pg Normal 25.2-33.5 [facility] Comment on above: Performed By: #### C BC, BMPX ####[address] [address] Lab Director: Nate Stafford MD MCHC (RBC) [Mass/Vol] 33.0 g/dL Normal 28.4-34.8 [facility] Comment on above: Performed By: #### C BC, BMPX ####[facility] [address] [place] [address] [phone] Director: Nate Stafford MD MCV (RBC) [Entitic vol] 88.7 fL Normal 82.6-102.9 [facility] Comment on above: Performed By: #### C BC, BMPX ####[facility] [address] [place] [address] Lab Director: Nate Stafford MD NRBC Automated 0.0 per 100 WBC Normal 0.0 [facility] Comment on above: Performed By: #### C BC, BMPX ####[facility] [address] [place] [address] Lab Director: Nate Stafford MD Platelet mean volume (Bld) [Entitic vol] 10.9 fL Normal 8.1-13.5 [facility] Comment on above: Performed By: #### C BC, BMPX ####[facility] [address] [place], [place] [phone] Director: Nate Stafford MD Platelets (Bld) [#/Vol] 221 10*3/uL Normal 138-453 [facility] Comment on above: Performed By: #### C BC, BMPX ####[facility] [address]xbeneql[address] [place], [place] [phone] Director: Nate Stafford MD RBC (Bld) [#/Vol] 4.71 10*6/uL Normal 4.21-5.77 [facility] Comment on above: Performed By: #### C BC, BMPX ####[facility] [address]tf[address] [place], [place] [phone] Director: Nate Stafford MD WBC (Bld) [#/Vol] 10.6 10*3/uL Normal 3.5-11.3 [facility] Comment on above: Performed By: #### C BC, BMPX ####[facility] [address] [place], [place] [address])[phone] Director: Nate Stafford MD CBCOrdered By: Halina Pathak on 08-02-2020 Hematocrit (Bld) [Volume fraction] 41.8 % 40.7 - 50.3 % [facility] HospitalEdison DC Systems Phone: Hemoglobin.gastroint estinal spec 1 Ql (Stl) 13.8 g/dL 13.0 - 17.0 g/dL [facility] Phone: MCH (RBC) [Entitic mass] 29.3 pg 25.2 - 33.5 pg [employer] Phone: MCHC (RBC) [Mass/Vol] 33.0 g/dL 28.4 - 34.8 g/dL [employer] Phone: MCV (RBC) [Entitic vol] 88.7 fL 82.6 - 102.9 fL [employer] Phone: NRBC Automated 0.0 0.0 per 100 WBC [employer] Phone: Platelet distribution width (Bld) [Ratio] 13.0 % 11.8 - 14.4 % [employer] Phone: Platelet mean volume (Bld) [Entitic vol] 10.9 fL 8.1 - 13.5 fL [employer] Phone: Platelets (Bld) [#/Vol] 221 10*3/uL [employer] Phone: RBC (Bld) [#/Vol] 4.71 10*6/uL 4.21 - 5.7 7 m/uL [employer] Phone: WBC (Bld) [#/Vol] 10.6 10*3/uL [employer] Phone: Trauma Profileon 08-02-2020 (cont.) Normal [facility] Comment on above: Result Comment: Aver age GFR for 40-49 years old: 99 mL/min/1.73sq m Chronic Kidney Disease: <60 mL/min/1.73sq m Kidney failure: <15 mL/min/1.73sq m eGFR calculated using average adult body mass. Additional eGFR calculator available at: http://www.[employer].LiveMinutes/multiple_crcl_2012.htm Performed By: #### E RTISABEL GIBBS ####[facility] [address] [place] [address] [facility] Director: Nate Stafford MD Anion gap [Moles/Vol] 10 mmol/L Normal 9-17 [facility] Comment on above: Performed By: #### E RTPF, TROPI ####[facility] [address] [place], [place] [address])[phone] Director: Nate Stafford MD Chloride [Moles/Vol] 100 mmol/L Normal 98-107 [facility] Comment on above: Performed By: #### E RTPF, TROPI ####[facility] [address] [place] [address]([facility])[phone] Director: Nate Stafford MD CO2 [Moles/Vol] 24 mmol/L Normal 20-31 [facility] Comment on above: Performed By: #### E RTPF, TROPI ####[facility] [address]ufvf[address] [place], [place] [address])[phone] Director: Nate Stafford MD Creatinine [Mass/Vol] 0.71 mg/dL Normal 0.70-1.20 [facility] Comment on above: Performed By: #### E RTPF, TROPI ####[facility] [address] [place] [address])[phone] Director: Nate Stafford MD Ethanol [Mass/Vol] mg/dL Normal <10 [facility] Comment on above: Performed By: #### E RTPF, TROPI ####[facility] [address] [place], [place] [address])[phone] Director: Nate Stafford MD Ethanol percent <0.010 Normal <0.010 [facility] Comment on above: Performed By: #### E RTPF, TROPI ####[facility] [address] [place], [place] [address])[phone] Director: Nate Stafford MD GFR, Amer >60 Normal >60 [facility] Comment on above: Performed By: #### E RTPF, TROPI ####[facility] [address]kn[address] [place], [place] [phone] Director: Nate Stafford MD GFR,non Amer >60 Normal >60 [facility] Comment on above: Performed By: #### E RTBERNIE TROPI ####[facility] [address]pvf[address]ujzayq[address] [place], [place] [phone] Director: Nate Stafford MD Glucose [Mass/Vol] 109 mg/dL High 70-99 [facility] Comment on above: Performed By: #### E RTPAlanna TROPI ####[facility] [address] [place], [place] [phone] Director: Nate Stafford MD Potassium [Moles/Vol] 4.2 mmol/L Normal 3.7-5.3 [facility] Comment on above: Performed By: #### E RTBERNIE TROPI ####[facility] [address] [place] [address] [phone] Director: Nate Stafford MD Sodium [Moles/Vol] 134 mmol/L Low 135-144 [facility] Comment on above: Performed By: #### E RTBERNIE TROPI ####[facility] [address]jlxpfesybec[address] [place], [place] [phone] Director: Nate Stafford MD Urea nitrogen [Mass/Vol] 15 mg/dL Normal 6-20 [facility] Comment on above: Performed By: #### E RTPAlanna TROPI ####[facility] [address]jhqpidpvn[address] [place], [place] [phone] Director: Nate Stafford MD Troponinon 08-02-2020 Troponin, High Sens 6 ng/L Normal 0-22 [facility] Comment on above: Result Comment: High Sensitivity Troponin values cannot be compared with other Troponin methodologies. Patients with high levels of Biotin oral intake (i.e >5mg/day) may have falsely decreased Troponin levels. Samples collected within 8 hours of biotin intake may require additional information for diagnosis. Performed By: #### E RTPAlanna TROPI ####[facility] [address] [place] [address] lab Director: Nate Stafford MD Type + Screenon 08-02-2020 Type + Screen Sample Expiration 08/04/2020,2359 Arm Band Number [id number] ABO/Rh(D) A NEGATIVE Antibody Screen NEGATIVE Normal [facility] Comment on above: Performed By: #### T YS ####[facility] HospitalCooperation TechnologyQruciixmcyrx9349 [place] [address] lab Director: Nate Stafford MD CT CERVICAL [...] Johnny Smalls MD 08/01/20 Final result Normal [facility] CT CERVICAL SPINE WO CONTRAS TOrdered By: Ronnie Lund on 08-01-2020 C6-7 cervical spondy losis and degenerative disc disease. Evidence of paracervical spasm. No acute bony abnormalities are noted [employer] Phone: EXAMINATION: CT OF T HE CERVICAL [...] intact. The visualized lung apices are clear. [employer] Phone: Francisco, Mhpn Incoming R adiant Results From Medivo/Compendium - 08/01/2020 7:04 PM EDT EXAMINATION: CT [...] spasm. No acute bony abnormalities are noted [employer] Phone: CT CHEST ABDOMEN PELVIS W CO [...] Elizabeth Shoemaker MD 08/01/20 Final result Normal [facility] CT CHEST ABDOMEN PELVIS W CO [...] to Lung-RADS guidelines. Reference: Radiology. 2017; 284(1):228-43. [employer] Phone: EXAMINATION: CT OF T HE CHEST, [...] hernia. Bones/Soft Tissues: No acute osseous abnormality. [employer] Work Phone: Francisco, Mhpn Incoming R adiant Results From Medivo/Compendium - 08/01/2020 7:19 PM EDT EXAMINATION: CT [...] to Lung-RADS guidelines. Reference: Radiology. 2017; 284(1):228-43. [employer] Work Phone: CT HEAD WO CONTRASTon 2020 [...] Jarek Fernández MD 08/01/20 Final result Normal [facility] CT Head WO ContrastOrdered B y: Ronnie Lund on 08-01-2020 1. No acute intracra nial abnormality. [employer] Phone: EXAMINATION: CT OF T HE HEAD [...] clear. SOFT TISSUES/SKULL: The calvarium is intact. [employer] Phone: Francisco, Mhpn Incoming R adiant Results From Medivo/Phloronols - 08/01/2020 7:01 PM EDT EXAMINATION: CT [...] intact. IMPRESSION: 1. No acute intracranial abnormality. [employer] Work Phone: CT LUMBAR SPINE TRAUMA RECON [...] Johnny Smalls MD 08/01/20 Final result Normal [facility] CT THORACIC SPINE TRAUMA REC ONSTRUCTIONon [...] Johnny Smalls MD 08/01/20 Final result Normal [facility] Drug Scr, Abuse, Uron 2020 Amphetamine(s),Ur Negative Normal NEG [facility] Comment on above: Result Comment: (Positive cutoff 1000 ng/mL) Performed By: #### U TETE LOUIS #### [facility] [address] [place], [place] [phone] Slash Trimmer: Nate Stafford MD Barbiturate(s),Ur Negative Normal NEG [facility] Comment on above: Result Comment: (Positive cutoff 200 ng/mL) Performed By: #### U AMIKrissy LOUIS #### [facility] [address] [place] [address] Slash Trimmer: Nate Stafford MD Benzodiazepine(s) Negative Normal NEG [facility] Comment on above: Result Comment: (Positive cutoff 200 ng/mL) Performed By: #### U TETE LOUIS #### [facility] [address] [place] [address] Slash Trimmer: Nate Stafford MD Cannabinoid(s),Ur Negative Normal NEG [facility] Comment on above: Result Comment: (Positive cutoff 50 ng/mL) Performed By: #### U AMIC, LOUIS #### [facility] [address] [place] [address] Slash Trimmer: Nate Stafford MD Cocaine Metabolite Negative Normal NEG [facility] Comment on above: Result Comment: (Positive cutoff 300 ng/mL) Performed By: #### U AMIC, LOUIS #### [facility] [address] [place] [address] Slash Trimmer: Nate Stafford MD Interpretive Info Assay provides medic al screening only. The absence of expected drug(s) and/or Normal [facility] Comment on above: Result Comment: meta bolite(s) may indicate diluted or adulterated urine, limitations of testing or timing of collection. Testing for legal purposes should be confirmed by another method. To request confirmation of test result, please call the lab within 7 days of sample submission. Performed By: #### U AMIC, LOUIS #### [facility] [address] [place] [address] Slash Trimmer: Nate Stafford MD Methadone Ql (U) Negative Normal NEG [facility] Comment on above: Result Comment: (Positive cutoff 300 ng/mL) Performed By: #### U AMIC, LOUIS #### [facility] [address] [place] [address] Slash Trimmer: Nate Stafford MD Opiate(s), Ur Negative Normal NEG [facility] Comment on above: Result Comment: (Positive cutoff 300 ng/mL) Performed By: #### U AMIC, LOUIS #### [facility] [address] [place] [address] Slash Trimmer: Nate Stafford MD Oxycodone, Urine Negative Normal NEG [facility] Comment on above: Result Comment: (Positive cutoff 100 ng/mL) Performed By: #### U AMIC, LOUIS #### [facility] [address] [place] [address] Slash Trimmer: Nate Stafford MD Phencyclidine, Ur Negative Normal NEG [facility] Comment on above: Result Comment: (Positive cutoff 25 ng/mL) Performed By: #### U AMIC, LOUIS #### [facility] [address] [place] [address] Slash Trimmer: Nate Stafford MD Buprenorphrine, Ur NOT REPORTED Normal NEG [facility] Comment on above: Performed By: #### U AMIC, LOUIS #### [facility] [address] [place] [address] Slash Trimmer: Nate Stafford MD MDMA, Urine NOT REPORTED Normal NEG [facility] Comment on above: Performed By: #### U AMIC, LOUIS #### [facility] [address] [place] [address] Slash Trimmer: Nate Stafford MD Methamphetamine, Ur NOT REPORTED Normal NEG [facility] Comment on above: Performed By: #### U AMIC, LOUIS #### [facility] [address] [place] [address] Slash Trimmer: Nate Stafford MD Propoxyphene,Urine NOT REPORTED Normal NEG [facility] Comment on above: Performed By: #### U AMIC, LOUIS #### [facility] [address] [place] [address] Slash Trimmer: Nate Stafford MD Tricyclic antidepressants Screen Ql (U) NOT REPORTED Normal NEG [facility] Comment on above: Performed By: #### U AMIC, LOUIS #### [facility] [address] [place] [address] Slash Trimmer: Nate Stafford MD No Panel InformationOrdered By: [...] to body habitus but requires clinical correlation. [employer] Phone: EXAMINATION: TWO XRA Y VIEWS OF [...] may relate to swelling or body habitus. [employer] Phone: Francisco, Mhpn Incoming R adiant Results From Medivo/Compendium - 08/01/2020 9:41 PM EDT EXAMINATION: TWO [...] to body habitus but requires clinical correlation. [employer] Phone: No Panel InformationOrdered By: Ronnie Lund on 08-01-2020 Degenerative disc di sease at L5-S1. No acute bony abnormalities are seen in the thoracic or lumbar spine [employer] Phone: EXAMINATION: CT OF T HE LUMBAR [...] SOFT TISSUES/RETROPERITONEUM: No paraspinal mass is seen. [employer] Phone: Francisco, Mhpn Incoming R adiant Results From Medivo/Phloronols - 08/01/2020 7:11 PM EDT EXAMINATION: CT [...] seen in the thoracic or lumbar spine [employer] Phone: TRAUMA PANELOrdered By: Carlos Pathak on 08-01-2020 Lawson Test Unable to perform te sting: No specimen received. [employer] Phone: Anion gap [Moles/Vol] 10 mmol/L 9 - 17 mmol/L [employer] Phone: aPTT Coag (Bld) [Time] 23.3 s [employer] Phone: Comment on above: IV Heparin Therapy Range: 48.6-77.8 Blood Bank Specimen BILL FOR SERVICES PERFORMED [employer] Phone: Carboxyhemoglobin Unable to perform te sting: No specimen received. % [employer] Work Phone: Chloride [Moles/Vol] 100 mmol/L 98 - 10 7 mmol/L [employer] Phone: CO2 [Moles/Vol] 24 mmol/L 20 - 31 mmol/L [employer] Phone: Creatinine [Mass/Vol] 0.71 mg/dL 0.70 - 1.20 mg/dL [employer] Phone: Ethanol [Mass/Vol] mg/dL <10 mg/dL [employer] Phone: Ethanol percent <0.010 <0.010 % [facility] [employer] Work Phone: FIO2 Unable to perform te sting: No specimen received. [employer] Phone: GFR >60 >60 mL/min Project [employer] Phone: GFR Non- >60 >60 mL/min [employer] Phone: GFR/1.73 sq M.predicted MDRD (S/P/Bld) [Vol rate/Area] [employer] Phone: Comment on above: Average GFR for 40-4 9 years old: 99 mL/min/1.73sq m Chronic Kidney Disease: <60 mL/min/1.73sq m Kidney failure: <15 mL/min/1.73sq m eGFR calculated using average adult body mass. Additional eGFR calculator available at: http://www.[employer].LiveMinutes/multiple_crcl_2012.htm GFR/1.73 sq M.predicted MDRD (S/P/Bld) [Vol rate/Area] NOT REPORTED [employer] Phone: Glucose [Mass/Vol] 109 mg/dL High 70 - 99 mg/dL [employer] Phone: hCG Qual PATIENT IS MALE NEGATIVE [employer] elena Ring [facility] Work Phone: HCO3, Venous Unable to perform te sting: No specimen received. 24.0 - 30.0 mmol/L [employer] Phone: Hematocrit (Bld) [Volume fraction] 42.3 % 40.7 - 50.3 % [employer] Work Phone: Hemoglobin.gastroint estinal spec 1 Ql (Stl) 14.2 g/dL 13.0 - 17.0 g/dL [employer] Phone: INR Coag (Bld) [Relative time] 1.0 {INR} [employer] Phone: Comment on above: Therapeutic Range: Moderate Anticoagulant Intensity: INR = 2.0-3.0 High Anticoagulant Intensity: INR = 2.5-3.5 Interpretation and review of laboratory results Abnormal [employer] Phone: MCH (RBC) [Entitic mass] 29.3 pg 25.2 - 33.5 pg [employer] Phone: MCHC (RBC) [Mass/Vol] 33.6 g/dL 28.4 - 34.8 g/dL [employer] Phone: MCV (RBC) [Entitic vol] 87.2 fL 82.6 - 102.9 fL [employer] Phone: Methemoglobin Unable to perform te sting: No specimen received. % [employer] Phone: Mode Unable to perform te sting: No specimen received. [employer] Phone: Negative Base Excess, Srikanth Unable to perform testing: No specimen received. 0.0 - 2.0 mmol/L [employer] Phone: NOTIFICATION Unable to perform te sting: No specimen received. [employer] Phone: NOTIFICATION TIME Unable to perform te sting: No specimen received. [employer] Phone: NRBC Automated 0.0 0.0 per 100 WBC [employer] Phone: O2 Device/Flow/% Unable to perform te sting: No specimen received. [employer] Phone: O2 Sat, Srikanth Unable to perform te sting: No specimen received. % [employer] Phone: Oxyhemoglobin Unable to perform te sting: No specimen received. 95.0 - 98.0 % [employer] Phone: pCO2, Srikanth Unable to perform te sting: No specimen received. [employer] Phone: pCO2, Srikanth, Temp Adj Unable to perform te sting: No specimen received. [employer] Phone: Peep/Cpap Unable to perform te sting: No specimen received. [employer] Phone: pH, Srikanth Unable to perform te sting: No specimen received. [employer] Phone: pH, Srikanth, Temp Adj Unable to perform te sting: No specimen received. [employer] Phone: Platelet distribution width (Bld) [Ratio] 12.9 % 11.8 - 14.4 % [employer] Phone: Platelet mean volume (Bld) [Entitic vol] 10.1 fL 8.1 - 13.5 fL [employer] Phone: Platelets (Bld) [#/Vol] 220 10*3/uL [employer] Phone: pO2, Srikanth Unable to perform te sting: No specimen received. [employer] Phone: pO2, Srikanth, Temp Adj Unable to perform te sting: No specimen received. [employer] Phone: Positive Base Excess, Srikanth Unable to perform testing: No specimen received. 0.0 - 2.0 mmol/L [employer] Phone: Potassium [Moles/Vol] 4.2 mmol/L 3.7 - 5.3 mmol/L [employer] Phone: PSV Unable to perform te sting: No specimen received. [employer] Phone: PT Coag (PPP) [Time] 10.4 s Project Manager Phone: Pt Temp Unable to perform te sting: No specimen received. [employer] Phone: Pt. Position Unable to perform te sting: No specimen received. [employer] Phone: RBC (Bld) [#/Vol] 4.85 10*6/uL 4.21 - 5.7 7 m/uL [employer] Phone: Respiratory Rate Unable to perform te sting: No specimen received. [employer] Phone: Sample Site Unable to perform te sting: No specimen received. [employer] Phone: Set Rate Unable to perform te sting: No specimen received. [employer] Phone: Sodium [Moles/Vol] 134 mmol/L Low 135 - 144 mmol/L [employer] Phone: Text for Respiratory Unable to perform t esting: No specimen received. [employer] Phone: Total Hb Unable to perform te sting: No specimen received. 12.0 - 16.0 g/dl [employer] Phone: Total Rate Unable to perform te sting: No specimen received. [employer] Phone: Urea nitrogen (BldV) [Mass/Vol] 15 mg/dL 6 - 20 mg/dL [employer] Phone: VT Unable to perform te sting: No specimen received. [employer] Phone: WBC (Bld) [#/Vol] 14.1 10*3/uL High [employer] Phone: TYPE AND SCREENOrdered By: Ivonne Ba on 08-01-2020 ABO/Rh Negative [facility] Phone: Arm Band Number [id number] [facility]upiVIP [facility] Work Phone: Expiration Date 08/04/2020,2359 [employer] Work Phone: Trauma Profileon 08-01-2020 aPTT Coag (Bld) [Time] 23.3 s Normal 20.5-30.5 [facility] Comment on above: Result Comment: IV Heparin Therapy Range: 48.6-77.8 Performed By: #### E RTPF TROPI ####[place] [address] Lab Director: Nate Stafford MD INR Coag (PPP) [Relative time] 1.0 {INR} Normal [facility] Comment on above: Result Comment: Therapeutic Range: Moderate Anticoagulant Intensity: INR = 2.0-3.0 High Anticoagulant Intensity: INR = 2.5-3.5 Performed By: #### E RTPF TROPI ####[facility] [address] [place] [address] lab Director: Nate Stafford MD PT Coag (PPP) [Time] 10.4 s Normal 9.1-12.3 [facility] Comment on above: Performed By: #### E RTPF TROPI ####[facility] [address] [place] [address] lab Director: Nate Stafford MD Erythrocyte distribution width (RBC) [Ratio] 12.9 % Normal 11.8-14.4 [facility] Comment on above: Performed By: #### E RTPF TROPI ####[facility] [address] [place] [address] Lab Director: Nate Stafford MD Hematocrit (Bld) [Volume fraction]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 Status: Inactive Member Role Status Dates Huan Cowan DO Attending Provider Active Team Status: Active Member Role Status Dates HAIDER Garibay Primary Care Provider Active HAIDER Beard Attending Provider Active Team Status: Active Member [...] BE BASED ON THE PRIMARY CLINICAL RECORDS. [facility] [employer] provides no warranty or guarantee of the accuracy or completeness of information in this document.
--- NOTE | 2023-12-08 14:12 | ED_ITS ---
HPI - Wound/Laceration General Chief Complaint: Wound/Laceration Stated Complaint: Laceration Time Seen by Provider: 12/08/23 13:24 Source: patient Mode of arrival: walk-in Limitations: no limitations History of Present Illness HPI narrative: The patient comes to the ER with abrasion to his right chin he mentioned that he was shaving when he had a small abrasion and started bleeding, the patient take Coumadin after he have a history of a valve replacement and his last INR was 3.1 he mentioned that there was some changes of his medication The patient mentioned that the bleeding continues for few hours and that why he came to the ER Related Data Home Medications ?Medication ?Instructions ?Recorded ?Confirmed omeprazole 20 mg capsule,delayed 40 mg PO DAILY 01/28/23 12/08/23 release aspirin 81 mg tablet,delayed 81 mg PO DAILY 02/24/23 12/08/23 release (Adult Aspirin Regimen) warfarin 5 mg tablet 2.5 mg PO DAILY 09/02/23 11/25/23 warfarin 5 mg tablet 5 mg PO DAILY 09/02/23 12/08/23 cholecalciferol (vitamin D3) 50 50 mcg PO DAILY 09/16/23 12/08/23 mcg (2,000 unit) capsule gabapentin 400 mg capsule 400 mg PO DAILY 09/16/23 11/25/23 metoprolol succinate 25 mg capsule 25 mg PO DAILY 09/16/23 12/08/23 sprinkle, ext. release 24 hr spironolactone 25 mg tablet 12.5 mg PO DAILY 09/16/23 12/08/23 Previous Rx's ?Medication ?Instructions ?Recorded gabapentin 400 mg capsule See Rx Instructions .Route 09/16/23 .COMPLEX #150 caps hydrocodone 7.5 mg-acetaminophen 1 tab PO QID PRN pain #110 tabs 10/16/23 325 mg tablet hydrocodone 7.5 mg-acetaminophen 1 tab PO QID PRN pain #110 tabs 11/27/23 325 mg tablet Allergies Allergy/AdvReac Type Severity Reaction Status Date / Time No Known Drug Allergies Allergy Verified 12/08/23 13:30 Review of Systems ROS Status of ROS 10 or more systems reviewed and unremark able except as noted in history and below [facility] Medical History (Updated 12/08/23 @ 14:12 by Karyn Frias MD) Hypoxia ?R09.02 - Hypoxemia (ICD-10) Community acquired pneumonia ?J18.9 - Pneumonia, unspecified organism (ICD-10) Febrile illness ?R50.9 - Fever, unspecified (ICD-10) Intractable back pain ?M54.9 - Dorsalgia, unspecified (ICD-10) Chronic lumbosacral pain ?M54.50 - Low back pain, unspecified (ICD-10) ?G89.29 - Other chronic pain (ICD-10) Foot pain ?M79.673 - Pain in unspecified foot (ICD-10) Ankle pain ?M25.579 - Pain in unspecified ankle and joints of unspecified foot (ICD-10) Achilles tendinitis ?M76.60 - Achilles tendinitis, unspecified leg (ICD-10) Plantar fascial fibromatosis ?M72.2 - Plantar fascial fibromatosis (ICD-10) Migraine ?G43.909 - Migraine, unspecified, not intractable, without status migrainosus (ICD-10) GERD (gastroesophageal reflux disease) ?K21.9 - Gastro-esophageal reflux disease without esophagitis (ICD-10) Heartburn ?R12 - Heartburn (ICD-10) High cholesterol ?E78.00 - Pure hypercholesterolemia, unspecified (ICD-10) Calcaneal spur ?M77.30 - Calcaneal spur, unspecified foot (ICD-10) Strain of Achilles tendon ?S86.019A - Strain of unspecified Achilles tendon, initial encounter (ICD-10) Low back pain ?M54.50 - Low back pain, unspecified (ICD-10) Kidney stones ?N20.0 - Calculus of kidney (ICD-10) Sleep apnea ?G47.30 - Sleep apnea, unspecified (ICD-10) Hypertension ?I10 - Essential (primary) hypertension (ICD-10) Surgical History Aortic valve replaced ?Z95.2 - Presence of prosthetic heart valve (ICD-10) History of colonoscopy ?Z98.890 - Other specified postprocedural states (ICD-10) History of foot surgery ?Z98.890 - Other specified postprocedural states (ICD-10) H/O vasectomy (2013) ?Z98.52 - Vasectomy status (ICD-10) H/O shoulder replacement ?Z96.619 - Presence of unspecified artificial shoulder joint (ICD-10) History of carpal tunnel release ?Z98.890 - Other specified postprocedural states (ICD-10) Family History Grandmother Family history of CHF (congestive heart failure) Family history of COPD (chronic obstructive pulmonary disease) Mother Family history of COPD (chronic obstructive pulmonary disease) Family history of cancer Other Family history of lung cancer Social History Within the past year, how often did you have a drink containing alcohol: monthly or less Smoking status: Never smoker Non-prescribed substance use: denies use 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 Highest level of school completed/degree received: some college, no degree Are you now , , , , never or living with a partner: living with partner In a typical week, how many times do you talk on the telephone with family, friends, or neighbors: 3 or more times per week How often do you get together with friends or relatives: 3 or more times per week How often do you attend christian or shinto services: never Do you belong to any clubs or organizations such as christian groups unions, fra[employer] or athletic groups, or school groups: no Total score: 2 Score interpretation: A score of greater than or equal to 2 indicates the lowest level of social isolation. Little interest or pleasure in doing things: not at all Feeling down, depressed, or hopeless: not at all Feel stressed/tense/nervous/anxious/difficulty sleeping: not at all Do you think of yourself as: straight/heterosexual Gender Identity: male Exam Narrative Exam Narrative: Nurses notes and vital signs reviewed and patient is not hypoxic. On the right mcallister area the patient have a abrasion mostly secondary to over shaving 1mm of the ride side of chin General: Well-appearing and in no apparent distress. Skin: Warm, dry, no pallor noted. No rash. Head: Normocephalic, atraumatic. Neck: Supple, non-tender. Eye: Pupils are equal, round and EOMI. No scleral icterus. Ears, Nose, Mouth, and Throat: TM are clear, no nasal mucosal hypertrophy. Oral mucosa is moist, no posterior oropharynx erythema, uvula is mid-line Cardiovascular: Regular Rate and Rhythm without murmur, gallop or rub. Respiratory: No accessory muscle use or respiratory distress. Lungs are clear to auscultation, no wheezing, rales or rhonchi Chest Wall: no tenderness Back: No midline thoracic or lumbar vertebral tenderness. No CVA tenderness Musculoskeletal: normal ROM, no calf or popliteal tenderness, no lower extremity edema/swelling GI: Abdomen is soft, non-distended. Normal bowel sounds. No masses appreciated. No tenderness to palpation. No rebound, guarding, or rigidity noted. Neurological: A&O x4. No cranial nerve dysfunction observed. No truncal ataxia. Moves all extremities. Sensation intact. Psychiatric: Cooperative and interactive. Normal mood and affect. Constitutional Vital Signs, click to edit/add: Last Vital Signs Temp 99.1 F 12/08/23 13:24 Pulse 86 12/08/23 13:24 Resp 18 12/08/23 13:24 BP 138/66 12/08/23 13:24 Pulse Ox 97 12/08/23 13:24 O2 Del Method Room Air 12/08/23 13:24 Course Vital Signs Vital signs: Vital Signs Temperature 99.1 F 12/08/23 13:24 Pulse Rate 86 12/08/23 13:24 Respiratory Rate 18 12/08/23 13:24 Blood Pressure 138/66 12/08/23 13:24 Pulse Oximetry 97 12/08/23 13:24 Oxygen Delivery Method Room Air 12/08/23 13:24 Temperature 99.1 F 12/08/23 13:24 Pulse Rate 86 12/08/23 13:24 Respiratory Rate 18 12/08/23 13:24 Blood Pressure 138/66 12/08/23 13:24 Pulse Oximetry 97 12/08/23 13:24 Oxygen Delivery Method Room Air 12/08/23 13:24 MDM - Wound/Laceration MDM Narrative Medical decision making narrative: The bleeding was very minimal and the patient INR was 3.1 when his medication was lowered which mostly will mean that his blood INR will be mostly lower He just had a small piece of gelatinous sponge applied , and the it was enough to control his bleeding he is instructed to keep it till tomorrow and then remove it The patient is to follow up with primary care physician in next 2-3 days or to return to the emergency department should any of the signs or symptoms worsen or new symptoms develop. The patient agrees with the following Diagnosis and Treatment plan and the patient will be discharged home. Discharge Plan Discharge Chief Complaint: Wound/Laceration Clinical Impression: Abrasion Patient Disposition: Home, Self-Care Time of Disposition Decision: 14:12 Condition: Good Prescriptions / Home Meds: No Action aspirin [Adult Aspirin Regimen] 81 mg tablet,delayed release (DR/EC) 81 mg PO DAILY warfarin 5 mg tablet 2.5 mg PO DAILY Rx Instructions: takes on Saturday warfarin 5 mg tablet 5 mg PO DAILY Patient Comments: Takes, Saturday, , , Saturday, Saturday cholecalciferol (vitamin D3) 50 mcg (2,000 unit) capsule 50 mcg PO DAILY gabapentin 400 mg capsule 400 mg PO DAILY metoprolol succinate 25 mg capsule,sprinkle,ER 24hr 25 mg PO DAILY spironolactone 25 mg tablet 12.5 mg PO DAILY hydrocodone-acetaminophen 7.5-325 mg tablet 1 tab PO QID PRN (Reason: pain) Qty: 110 0RF hydrocodone-acetaminophen 7.5-325 mg tablet 1 tab PO QID PRN (Reason: pain) Qty: 110 0RF omeprazole 20 mg capsule,delayed release(DR/EC) 40 mg PO DAILY gabapentin 400 mg capsule See Rx Instructions .ROUTE .COMPLEX Qty: 150 0RF Rx Instructions: 2 tabs in am, 1 tab at noon, and 2 tabs at HS Print Language: Malagasy Instructions: Abrasion (ED) Referrals: Demetrius Parish MD [Primary Care Provider] - 1 week
== END 2023-12-08 14:17 | disposition home or self-care (01) ==
PROVIDERS: Emergency Provider Emergency Medicine; PCP Family Medicine
DX: S00.81XA Abrasion of other part of head, initial encounter (principal); Z79.01 Long term (current) use of anticoagulants; Z95.2 Presence of prosthetic heart valve; W26.8XXA Contact with other sharp object(s), not elsewhere classified, initial encounter
CPT/HCPCS: 99282

== ENCOUNTER 2023-12-30 20:35 | Outpatient (OUT) | payer BC, SELFPAY ==
--- OUTSIDE RECORDS SUMMARY | 2023-12-30 20:40 | XMS_ITS | CCD ---
Author Organization [facility] Care Team Providers Care Production Grip Name Role Phone Pal YARN CLEANER - [facility] Primary Care Provide r [facility] Primary Care Unavailable JUANITA CARMONA Consulting Unavailable JUANITA CARMONA Attending Unavailable JUANITA CARMONA Admitting Unavailable [facility] Y[facility] Primary Care Provider [facility] Primary Care Physician Unavaila Nicolasa Barrios Unavailable Unavailable [facility] Primary Care Physician [phone] [facility] Y[facility] Primary Care Provider [facility] YARN CLEANER.[facility] Primary Care Provider [facility] YARN CLEANER.[facility] Primary Care Provider DR KINGSLYE HERRERA V Consulting Unavailable YRN, DR ARROYO Attending Unavailable YRN, DR ARROYO Admitting Unavailable TOSHA, DR JAYY Marte Consulting Unavailable YRN, DR ARROYO Consulting Unavailable [facility] Referring Unavailable [facility] Primary Care Unavailable ANH MENA Attending Unavailab ANH Morales Referring Unavailab [facility] Primary Care Unavailable [facility] Primary Care Unavailable [facility] Referring Unavailable [facility] Primary Care Unavailable [facility] Attending Unavailable [facility] Referring Unavailable [facility] Primary Care Unavailable [facility] Primary Care Unavailable TREY SHARMA Attending Unavailable TREY SHARMA Referring Unavailable [facility] Attending Unavailable [facility] Primary Care Unavailable [facility] Primary Care Unavailable [facility] Referring Unavailable [facility] Primary Care Unavailable [facility] Attending Unavailable [facility] Referring Unavailable [facility] Primary Care Unavailable [facility] Referring Unavailable [facility] Primary Care Unavailable [facility] Attending Unavailable [facility] Primary Care Unavailable JAYY PATEL Referring Unavailable [facility] Primary Care Unavailable [facility] Attending Unavailable [facility] Primary Care Unavailable ANH MENA Attending Unavailab [place] Referring Unavailable ANH MENA Referring Unavailab TARSHA Willson Attending Unavailable [facility] Primary Care Unavailable [facility] Primary Care Unavailable [facility] [place] Referring Unavailable [facility] Primary Care Unavailable [facility] [place] Referring Unavailable Kelly Yi Unavailable Pal, HAIDER [facility] Primary Care Provider HAIDER Yi Attending Provider HAIDER Quezada Attending Provider HAIDER Guerrero Primary Care Provider [phone] Siri Quezada Unavailable Vonnie Guerrero Primary Care Physician [phone] Kandis Amado Unavailable HAIDER Aguillon [facility] Primary Care Provider HAIDER Yi Attending Provider HAIDER Quezada Attending Provider HAIDER Guerrero Primary Care Provider DO Huan Cowan Attending Provider [phone] Katya Harrington Unavailable Unavailable BROWN, HUAN A [...] Attending Unavailable YolandaVonnie wadsworth L Attending Unavailable [facility] Primary Care Unavailable Joel Bledsoe Attending Unavailable Joel Bledsoe Admitting Unavailable Joel Bledsoe L Admitting Unavailable CHANDRAKANT BERNAL Primary Care Unavailable POLY KAUR Attending Unavailable Siri Quezada Admitting Unavailable Yolanda, Vonnie Moran Primary Care Unavailable Siri Quezada Attending Unavailable Damien, Siri Admitting Unavailable Yolanda, Vonnie Moran Primary Care Unavailable Damien, Siri Attending Unavailable Damien, Siri Admitting Unavailable [facility] Unavailabl e Quezada, Siri Attending Unavailable Huan Cowan Attending Unavailable Huan Cowan Admitting Unavailable Kelly Yi Attending Unavailable Kelly Yi Admitting Unavailable [facility] Unavailabl e GEORGE, PAUL Admitting Unavailable GEORGE, [...] Attending Unavailable GUSTAVOANNABELLA GUO Attending Unavailable GEORGE, PALU Referring Unavailable RUPERT ANGELES Attending Unavailable ISAIAS [...] Propensity to adverse reactions to drug (disorder) [facility] Repository (1 source) atorvastatin; Translations: [ATORVASTATIN] Drug Allergy [facility] Repository Medications Current Medications Medication [...] day(s), # 9 cap(s), Refills(s) 0, Pharmacy: [facility], 185.5, cm, 08/08/21 [...] constipation, # 20 cap(s), Refills(s) 0, Pharmacy: [facility], 185.5, cm, 08/08/21 12:06:00 EDT, Height/Length [...] milk, # 60 tab(s), Refills(s) 0, Pharmacy: [facility] #[facility], 185.5, cm, 08/08/21 12:06:00 EDT, Height/Length [...] # 90 tab(s), Refills(s) 3, Pharmacy: [facility]/pharmacy #[id number], 185.5, cm, 01/09/23 16:37:00 EDT, Height/Length [...] Ordered Start: 03-23-2017 take 1 capsule by [facility] once daily Prilosec 20 mg Cap - DR 20 mg, Oral, Daily, Refills(s) 0 Start Date: 03/23/17 Status: Ordered Start: 2016 take 1 capsule by [facility] once daily Omeprazole 40 mg capsule Indications: Gastroesophageal reflux disease, esophagitis presence not specified Take 1 capsule by mouth once daily. 30 capsule 11 2016 Active take 1 tablet by [facility] once daily PriLOSEC OTC 20 MG 1 tablet 30 minutes before morning meal Orally Once a day Active End: 07-25-2021 Omeprazole Magnesium (PRILOS EC OTC) 20 mg tablet 2 tablet 0 07/25/2021 Discontinued (Discontinued by Patient) Comment on above: Take 1 capsule by [facility] once daily. 2 tablet ondansetron (ZOFRAN-ODT) disintegrating [...] Starting 08/01/20 at 2358 polyethylene glycol 3350 23144 mg powder for oral solution (1 source) [...] tab(s), Refill(s) 0, 1-2 tab(s) Oral q4hr, [facility] #[facility], 185.5, cm, 08/08/21 12:06:00 EDT, [...] autopap titration study. Please fax results to [phone]. DX: JACOBY G47.33 1 Each 0 11/08/2016 09/13/2020 Discontinued Comment on above: Please perform autop ap titration study. Please fax results to [phone]. DX: JACOBY G47.33 doxepin hydrochloride 10 mg [...] Comment on above: Take 2 tablets by [facility] daily with dinner. 1 ml morphine sulfate [...] 10 mL injection (DEFINITY) polyethylene glycol 3350 645542 mg / potassium chloride 2970 mg / sodium bicarbonate 6740 mg / sodium chloride 5860 mg / sodium sulfate 29339 mg powder for oral solution (14 sources) [...] disease (2 sources) Atherosclerotic heart disease of [place] coronary artery without angina pectoris; Translations: [Atherosclerotic heart disease of [place] coronary artery without angina pectoris] Onset: 4 [...] obesity with BMI of 50.0-59.9, adult (FORMERLY [facility])] Onset: 0 Chronic Other nutritional; endocrine; and metabolic disorders (4 sources) Body mass index (BMI) 50.0-59.9, adult; Translations: [Morbid obesity with BMI of 50.0-59.9, adult (FORMER[facility])] Onset: 0 Chronic Other nutritional; endocrine; and [...] Reference Range Facility 36on 11-12-2023 36 Normal [facility] 36on 10-07-2023 36 Normal [facility] Follow-Upon 10-07-2023 Follow-Up Normal [facility] Orders Onlyon 10-07-2023 Orders Only Normal [facility] Telephoneon 10-07-2023 Telephone Normal [facility] ED Clinical Summaryon 2023 ED Clinical Summary [facility] ? Urgent Care [address], [place] [id number] Clinical Summary PERSON INFORMATION Name: NEHAL BAIG Age: 52 Years Sex: MALE : 1970 MRN: Acct#: Visit Reason: Medical screening exam; DOT PHYSICAL Arrival: 09/26/2023 09:05:07 Discharge: 09/26/2023 10:39:00 LOS: 000 01:34 Check In: 09/26/2023 09:05:07 Checkout: 09/26/2023 10:39:00 Address: [address] [place] [id number] PCP: CHANDRAKANT BERNAL PROVIDER INFORMATION Provider Role [...] Instructions: Follow-Up: With: Address: When: CHANDRAKANT BERNAL [address] [place] [address], [facility] [place] [address] Business (1) , only if needed DIAGNOSIS: Physical exam Patient Understands: Yes - Patient/family/caregiver verbalizes understanding of instructions given Comment: Normal [facility] ED Patient Summaryon 024 ED Patient Summary [facility] ? Urgent Care [address], [place] [id number] PATIENT DISCHARGE INSTRUCTIONS Patient Information Name: NEHAL BAIG Age: 52 Years Date of : 1970 Reason For Visit: Medical screening exam; DOT PHYSICAL Arrival Time: 09/26/2023 09:05:07 Primary Care Physician: CHANDRAKANT BERNAL Attending Physician: Joel Bledsoe PA-C Comment: Patient Education With: Address: When: CHANDRAKANT BERNAL [facility] [place] [address] Business (1) , only if needed Medication Information: The exam and treatment you received today in the [facility] Emergency Department were for an urgent problem and are not intended as complete care. It is important for you to follow up with a doctor, nurse practitioner, or physician?s pastrycook's assistant for ongoing care. If your symptoms [...] so we can reach you if necessary. [facility] Emergency Department has provided you with a complete list of medications post discharge. 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 counselor supervisor/provider of your visit and for further instruction [...] Diagnosis: Diagnoses This Visit Medical screening exam ([id number]) Physical exam (Z00.00) If you received any [...] Standard Urin (more content not included)... 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 POCT Glucose Levelon 024 Glucose [Mass/Vol] 112 mg/dL Normal 74-118 [facility] Comment on above: Result Comment: OPR_ ID=[email or web address],TGC FLAG = False,Meter:[id number] Medical Physics Teacher:Remy Montes Performed By: #### 4 [id number] ####[facility] (DEFAULT)[address] [place] [address] UA Standardon 09-26-2023 Breakpoint UA [facility] Comment on above: Performed By: #### 1 [id number] #### [facility] (DEFAULT) [address] [place] [address] Color (U) Yellow [facility] Comment on above: Performed By: #### 1 [id number] #### [facility] (DEFAULT) [address] [place] [address]353 Glucose (U) [Mass/Vol] mg/dL [facility] Comment on above: Performed By: #### 1 [id number] #### [facility] (DEFAULT) [address] [place] [address]45 Ketones Ql (U) TRACE Normal [facility] Comment on above: Performed By: #### 1 [id number] #### [facility] (DEFAULT) [address] [place] [address] 42627 UA Bilirubin Negative Normal [facility] Comment on above: Performed By: #### 1 [id number] #### [facility] (DEFAULT) [address] [place] [address] 82045 UA Blood Negative Normal NEGATIVE [facility] Comment on above: Performed By: #### 1 [id number] #### [facility] (DEFAULT) [address] [place] [address] 13821 UA Clarity CLEAR Normal CLEAR [facility] Comment on above: Performed By: #### 1 [id number] #### [facility] (DEFAULT) [address] [place] [address] 78428 UA Leuk Est Negative Normal NEGATIVE [facility] Comment on above: Performed By: #### 1 [id number] #### [facility] (DEFAULT) [address] [place] [address] 50802 UA Nitrite Negative Normal NEGATIVE [facility] Comment on above: Performed By: #### 1 [id number] #### [facility] (DEFAULT) [address] [place] [address] 90995 UA pH 6.0 Normal 5-8 [facility] Comment on above: Performed By: #### 1 [id number] #### [facility] (DEFAULT) [address] [place] [address] 98313 UA Protein 100 Abnormal NEGATIVE [facility] Comment on above: Performed By: #### 1 [id number] #### [facility] (DEFAULT) [address] [place] [address] 90790 UA Spec Grav >=1.030 Normal 1.001-1.035 [facility] Comment on above: Performed By: #### 1 [id number] #### [facility] (DEFAULT) [address] [place] [address] 78521 UA Urobilinogen 0.2 mg/dL Normal 0.2-1.0 [facility] Comment on above: Performed By: #### 1 [id number] #### [facility] (DEFAULT) [address] [place] [address] Urine Source Clean Catch Normal [facility] Comment on above: Performed By: #### 1 [id number] #### [facility] (DEFAULT) [address] [place] [address] Urgent Care Note- Provideron 09-26-2023 Urgent Care [...] history): All Problems Hypertension / SNOMED CT 7113310471 / Confirmed GERD (gastroesophageal reflux disease) / SNOMED CT 490545494 / Confirmed Diabetes / SNOMED CT 173762505 / Confirmed Objective CONST: -Obese -Acute distress: [...] Plan Assessment and Plan: Diagnosis: Physical exam (FVW22-EA Z00.00). Orders Orders Patient Care: Glucose POC [...] 4 months ago. He states that his assistant laboratory director told him he is okay to return to work but does not have any paperwork from the assistant laboratory director stating that he is okay to drive. Patient also shows a echocardiogram from 1 week ago that shows an ejection fraction of 35%. Patient's recent INR's are not in range of 2.5-3.5 which is required by mechanical heart valve. I discussed this with him indicated that he will need a letter releasing him stating he is okay to drive from his assistant laboratory director, I indicated that he needs an echocardiogram [...] [Verified on: 09/26/2023 11:04 EDT] POLY KAUR [facility] [place] 024 Urgent Care Record [facility] ? Urgent Care [address] [place] [address] PATIENT DISCHARGE INSTRUCTIONS Patient Information Name: NEHAL BAIG Age: 52 Years Date of : 1970 [facility]: [id number] Reason For Visit: DOT PHYSICAL Arrival Time: [...] legal documents With: Address: When: CHANDRAKANT BERNAL [address] [place] [address] Business () , only if needed Medication Information: The exam and treatment you received today in the [facility] Care were for an urgent problem and are not intended as complete care. It is important for you to follow up with a doctor, nurse practitioner, or physician?s pastrycook's assistant for ongoing care. If your symptoms [...] so we can reach you if necessary. [facility] Urgent Care has provided you with a complete list of medications post discharge. 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 counselor supervisor/provider of your visit and for further instruction [...] Control and Prevention November 2013 [facility] Abstracton 09-20-2023 Abstract Normal [facility] Follow-Upon 09-19-2023 Follow-Up Normal [facility] 30on 09-06-2023 30 Normal [facility] 30 Normal [facility] BASIC METABOLIC PANELon Anion gap [Moles/Vol] 13 mmol/L Normal 10-18 [facility] Comment on above: Performed By: #### L [id number] ####[facility] (BEAKER)[address] [place] [address] Calcium [Mass/Vol] 9.8 mg/dL Normal 8.6-10.3 [facility] Comment on above: Performed By: #### L AB15 ####[facility] ([facility])[address] [place] [address] Chloride [Moles/Vol] 97 mmol/L Low 98-107 [facility] Comment on above: Performed By: #### L AB15 ####[facility] ([facility])[address] [place] [address] CO2 [Moles/Vol] 31 mmol/L Normal 21-31 [facility] Comment on above: Performed By: #### L AB15 ####[facility] ([facility])[address] [facility] [place] [address] Creatinine [Mass/Vol] 1.03 mg/dL Normal 0.70-1.30 [facility] Comment on above: Performed By: #### L AB15 ####[facility] ([facility])[address] [place] [address] GLOMERULAR FILTRATION RATE ML/MIN/1.73 SQ M.PREDICTED 88.5 mL/min/1.73m*2 Normal >60.0 [facility] Comment on above: Result Comment: The [facility]???s estimated glomerular filtration rate (eGFR) will [...] of individuals. Performed By: #### L AB15 ####[facility] ([facility])[address] [place] [address] Glucose [Mass/Vol] 140 mg/dL High 70-100 [facility] Comment on above: Performed By: #### L [id number] ####[facility] (BEAKER)[address] [place] [address] Potassium [Moles/Vol] 4.6 mmol/L Normal 3.5-5.1 [facility] Comment on above: Performed By: #### L [id number] ####[facility] (BEAKER)[address] [place] [address] Sodium [Moles/Vol] 136 mmol/L Normal 136-145 [facility] Comment on above: Performed By: #### L AB15 ####[facility] (BEAKER)[address] [place] [address] Urea nitrogen [Mass/Vol] 17 mg/dL Normal 7-25 [facility] Comment on above: Performed By: #### L [id number] ####[facility] (BEAKER)[address] [place] [address] UREA NITROGEN/CREATININE (MASS RATIO) IN SER/PLAS 16.5 Normal [facility] Comment on above: Performed By: #### L [id number] ####[facility] (BEAKER)[address] [place] [address] CBCon 09-06-2023 Erythrocyte distribution width (RBC) [Ratio] 15.3 % High 11.5-15.0 [facility] Comment on above: Performed By: #### L [id number] ####[facility] (BEAKER)[address] [place] [address] ERYTHROCYTE MEAN CORPUSCULAR HEMOGLOBIN CONCENTRATION (G/DL) BY AUTOMATED 29.9 g/dL Low 32.0-35.0 [facility] Comment on above: Performed By: #### L [id number] ####[facility] (BEAKER)[address] [place] [address] Hematocrit (Bld) [Volume fraction] 40.1 % Normal 39.0-55.0 [facility] Comment on above: Performed By: #### L [id number] ####[facility] (BEAKER)[address] [place] [address] Hemoglobin (Bld) [Mass/Vol] 12.0 g/dL Low 13.0-17.0 [facility] Comment on above: Performed By: #### L [id number] ####[facility] ([facility])[address] [place] [address] MCH (RBC) [Entitic mass] 23.9 pg Low 27.0-33.0 [facility] Comment on above: Performed By: #### L [id number] ####[facility] ([facility])[address] [place] [address] MCV (RBC) [Entitic vol] 79.7 fL Low 82.0-98.0 [facility] Comment on above: Performed By: #### L [id number] ####[facility] ([facility])[address] [place] [address] PLATELETS (10*3/UL) IN BLOOD AUTOMATED COUNT 273 10*3/uL Normal 150-400 [facility] Comment on above: Performed By: #### L [id number] ####[facility] ([facility])[address] [place] [address] RBC (Bld) [#/Vol] 5.03 10*6/uL Normal 4.20-5.70 [facility] Comment on above: Performed By: #### L [id number] ####[facility] ([facility])[address] [place] [address] WBC (Bld) [#/Vol] 6.25 10*3/uL Normal 4.00-10.60 [facility] Comment on above: Performed By: #### L [id number] ####[facility] ([facility] [place] [address] DSon 09-06-2023 DS Normal [facility] MAGNESIUMon 09-06-2023 Magnesium [Mass/Vol] 2.1 mg/dL Normal 1.9-2.7 [facility] Comment on above: Performed By: #### L [id number] ####[facility] ([facility] [place] [address] PHOSPHORUSon 09-06-2023 Magnesium [Mass/Vol] 5.0 mg/dL Normal 2.5-5.0 [facility] Comment on above: Performed By: #### L [id number] ####[facility] (BEAKER)[address] [place] [address] PROTIME-INRon 09-06-2023 INR IN PPP BY COAGULATION ASSAY 1.58 High 0.90-1.10 [facility] Comment on above: Result Comment: ACCC [...] CHEST 1995;108:231S-246S. Performed By: #### L [id number] ####[facility] (BEAKER)[address] [place] [address] PROTHROMBIN TIME (PT) IN PPP BY COAGULATION ASSAY 18.7 Seconds High 12.3-14.8 [facility] Comment on above: Performed By: #### L [id number] ####[facility] (BEAKER)[address] [place] [address] 30on 09-05-2023 30 Normal [facility] 30 Normal [facility] BASIC METABOLIC PANELon 06- Anion gap [Moles/Vol] 12 mmol/L Normal 7-20 [facility] Comment on above: Performed By: #### L AB15 ####[facility] ([facility] [place] [address] Calcium [Mass/Vol] 9.5 mg/dL Normal 8.6-10.3 [facility] Comment on above: Performed By: #### L AB15 ####[facility] ([facility] [place] [address] Chloride [Moles/Vol] 96 mmol/L Low 98-107 [facility] Comment on above: Performed By: #### L AB15 ####[facility] ([facility])[address] [place] [address] CO2 [Moles/Vol] 32 mmol/L High 21-31 [facility] Comment on above: Performed By: #### L AB15 ####[facility] ([facility])[address] [place] [address] Creatinine [Mass/Vol] 0.96 mg/dL Normal 0.70-1.30 [facility] Comment on above: Performed By: #### L AB15 ####[facility] ([facility])[address] [place] [address] GLOMERULAR FILTRATION RATE ML/MIN/1.73 SQ M.PREDICTED 96.3 mL/min/1.73m*2 Normal >60.0 [facility] Comment on above: Result Comment: The [facility]???s estimated glomerular filtration rate (eGFR) will [...] of individuals. Performed By: #### L AB15 ####[facility] ([facility] [place] [address] Glucose [Mass/Vol] 102 mg/dL High 70-100 [facility] Comment on above: Performed By: #### L AB15 ####[facility] ([facility])[address] [place] [address] Potassium [Moles/Vol] 4.6 mmol/L Normal 3.5-5.1 [facility] Comment on above: Performed By: #### L AB15 ####[facility] ([facility])[address] [place] [address] Sodium [Moles/Vol] 135 mmol/L Low 136-145 [facility] Comment on above: Performed By: #### L AB15 ####[facility] ([facility])[address] [place] [address] Urea nitrogen [Mass/Vol] 15 mg/dL Normal 7-25 [facility] Comment on above: Performed By: #### L AB15 ####[facility] ([facility])[address] [place] [id number] UREA NITROGEN/CREATININE (MASS RATIO) IN SER/PLAS 15.6 Normal [facility] Comment on above: Performed By: #### L [id number] ####[facility] ([facility])[address] [place] [address] CBCon 09-05-2023 Erythrocyte distribution width (RBC) [Ratio] 15.5 % High 11.5-15.0 [facility] Comment on above: Performed By: #### L [id number] ####[facility] ([facility])[address] [place] [address] ERYTHROCYTE MEAN CORPUSCULAR HEMOGLOBIN CONCENTRATION (G/DL) BY AUTOMATED 30.5 g/dL Low 32.0-35.0 [facility] Comment on above: Performed By: #### L [id number] ####[facility] ([facility])[address] [place] [address] Hematocrit (Bld) [Volume fraction] 38.0 % Low 39.0-55.0 [facility] Comment on above: Performed By: #### L [id number] ####[facility] ([facility])[address] [place] [address] Hemoglobin (Bld) [Mass/Vol] 11.6 g/dL Low 13.0-17.0 [facility] Comment on above: Performed By: #### L [id number] ####[facility] ([facility])[address] [place] [address] MCH (RBC) [Entitic mass] 23.9 pg Low 27.0-33.0 [facility] Comment on above: Performed By: #### L [id number] ####[facility] ([facility])[address] [place] [address] MCV (RBC) [Entitic vol] 78.4 fL Low 82.0-98.0 [facility] Comment on above: Performed By: #### L [id number] ####[facility] ([facility])[address] [place] [address] PLATELETS (10*3/UL) IN BLOOD AUTOMATED COUNT 247 10*3/uL Normal 150-400 [facility] Comment on above: Performed By: #### L [id number] ####[facility] ([facility])[address] [place] [address] RBC (Bld) [#/Vol] 4.85 10*6/uL Normal 4.20-5.70 [facility] Comment on above: Performed By: #### L [id number] ####[facility] ([facility])[address] [place] [address] WBC (Bld) [#/Vol] 6.30 10*3/uL Normal 4.00-10.60 [facility] Comment on above: Performed By: #### L [id number] ####[facility] ([facility])[address] [place] [address] MAGNESIUMon 09-05-2023 Magnesium [Mass/Vol] 2.0 mg/dL Normal 1.9-2.7 [facility] Comment on above: Performed By: #### L [id number] ####[facility] ([facility])[address] [place] [address] PHOSPHORUSon 09-05-2023 Magnesium [Mass/Vol] 5.2 mg/dL High 2.5-5.0 [facility] Comment on above: Performed By: #### L [id number] ####[facility] ([facility])[address] [place] [address] PROTIME-INRon 09-05-2023 INR IN PPP BY COAGULATION ASSAY 1.64 High 0.90-1.10 [facility] Comment on above: Result Comment: ACCC [...] CHEST 1995;108:231S-246S. Performed By: #### L [id number] ####[facility] ([facility])[address] [place] [address] PROTHROMBIN TIME (PT) IN PPP BY COAGULATION ASSAY 19.2 Seconds High 12.3-14.8 [facility] Comment on above: Performed By: #### L [id number] ####[facility] ([facility])[address] [place] [address] 30on 09-04-2023 30 Normal [facility] 30 Normal [facility] BASIC METABOLIC PANELon 06-0 Anion gap [Moles/Vol] 12 mmol/L Normal 7-20 [facility] Comment on above: Performed By: #### L [id number] ####[facility] ([facility])[address] [place] [address] Calcium [Mass/Vol] 9.1 mg/dL Normal 8.6-10.3 [facility] Comment on above: Performed By: #### L [id number] ####[facility] ([facility])[address] [place] [address] Chloride [Moles/Vol] 96 mmol/L Low 98-107 [facility] Comment on above: Performed By: #### L [id number] ####[facility] ([facility])[address] [place] [address] CO2 [Moles/Vol] 30 mmol/L Normal 21-31 [facility] Comment on above: Performed By: #### L [id number] ####[facility] ([facility])[address] [place] [address] Creatinine [Mass/Vol] 0.88 mg/dL Normal 0.70-1.30 [facility] Comment on above: Performed By: #### L [id number] ####[facility] ([facility])[address] [place] [address] GLOMERULAR FILTRATION RATE ML/MIN/1.73 SQ M.PREDICTED 104.8 mL/min/1.73m*2 Normal >60.0 [facility] Comment on above: Result Comment: The [facility]???s estimated glomerular filtration rate (eGFR) will [...] of individuals. Performed By: #### L [id number] ####[facility] ([facility])[address] [place] [address] Glucose [Mass/Vol] 93 mg/dL Normal 70-100 [facility] Comment on above: Performed By: #### L [id number] ####[facility] ([facility])[address] [place] [address] Potassium [Moles/Vol] 4.0 mmol/L Normal 3.5-5.1 [facility] Comment on above: Performed By: #### L [id number] ####[facility] ([facility])[address] [place] [address] Sodium [Moles/Vol] 134 mmol/L Low 136-145 [facility] Comment on above: Performed By: #### L [id number] ####[facility] ([facility])[address] [place] [address] Urea nitrogen [Mass/Vol] 16 mg/dL Normal 7-25 [facility] Comment on above: Performed By: #### L [id number] ####[facility] ([facility])[address] [place] [address] UREA NITROGEN/CREATININE (MASS RATIO) IN SER/PLAS 18.2 Normal [facility] Comment on above: Performed By: #### L [id number] ####[facility] ([facility])[address] [place] [address] CBCon 09-04-2023 Erythrocyte distribution width (RBC) [Ratio] 15.7 % High 11.5-15.0 [facility] Comment on above: Performed By: #### L [id number] ####[facility] ([facility])[address] [place] [address] ERYTHROCYTE MEAN CORPUSCULAR HEMOGLOBIN CONCENTRATION (G/DL) BY AUTOMATED 31.0 g/dL Low 32.0-35.0 [facility] Comment on above: Performed By: #### L [id number] ####[facility] ([facility])[address] [place] [address] Hematocrit (Bld) [Volume fraction] 34.5 % Low 39.0-55.0 [facility] Comment on above: Performed By: #### L [id number] ####[facility] [place] [address] Hemoglobin (Bld) [Mass/Vol] 10.7 g/dL Low 13.0-17.0 [facility] Comment on above: Performed By: #### L [id number] ####[facility] ([facility] [place] [address] MCH (RBC) [Entitic mass] 24.4 pg Low 27.0-33.0 [facility] Comment on above: Performed By: #### L [id number] ####[facility] ([facility] [place] [address] MCV (RBC) [Entitic vol] 78.8 fL Low 82.0-98.0 [facility] Comment on above: Performed By: #### L [id number] ####[facility] ([facility] [place] [address] PLATELETS (10*3/UL) IN BLOOD AUTOMATED COUNT 221 10*3/uL Normal 150-400 [facility] Comment on above: Performed By: #### L [id number] ####[facility] ([facility] [place] [address] RBC (Bld) [#/Vol] 4.38 10*6/uL Normal 4.20-5.70 [facility] Comment on above: Performed By: #### L [id number] ####[facility] ([facility])[address] [place] [address] WBC (Bld) [#/Vol] 9.37 10*3/uL Normal 4.00-10.60 [facility] Comment on above: Performed By: #### L [id number] ####[facility] ([facility])[address] [place] [address] MAGNESIUMon 06-05-2024 Magnesium [Mass/Vol] 1.8 mg/dL Low 1.9-2.7 [facility] Comment on above: Performed By: #### L [id number] ####[facility] ([facility])[address] [place] [address] PHOSPHORUSon 09-04-2023 Magnesium [Mass/Vol] 4.4 mg/dL Normal 2.5-5.0 [facility] Comment on above: Performed By: #### L [id number] ####[facility] ([facility])[address] [place] [address] PROTIME-INRon 09-04-2023 INR IN PPP BY COAGULATION ASSAY 1.60 High 0.90-1.10 [facility] Comment on above: Result Comment: ACCC [...] CHEST 1995;108:231S-246S. Performed By: #### L [id number] ####[facility] ([facility])[address] [place] [address] PROTHROMBIN TIME (PT) IN PPP BY COAGULATION ASSAY 18.8 Seconds High 12.3-14.8 [facility] Comment on above: Performed By: #### L [id number] ####[facility] ([facility] [place] [address] 30on 09-03-2023 30 Normal [facility] 30 Normal [facility] ANESon 09-03-2023 ANES Normal [facility] APTTon 09-03-2023 ACTIVATED PARTIAL THROMBOPLASTIN TIME IN PPP BY COAGULATION ASSAY 32.6 Seconds Normal 25.0-35.0 [facility] Comment on above: Result Comment: Clin ical significance of the APTT is questionable in the presence of heparin. Performed By: #### L [id number] ####[facility] ([facility] [place] [address] BASIC METABOLIC PANELon Anion gap [Moles/Vol] 11 mmol/L Normal 7-20 [facility] Comment on above: Performed By: #### L [id number] ####[facility] ([facility])[address] [place] [address] Calcium [Mass/Vol] 9.2 mg/dL Normal 8.6-10.3 [facility] Comment on above: Performed By: #### L [id number] ####[facility] ([facility])[address] [place] [address] Chloride [Moles/Vol] 100 mmol/L Normal 98-107 [facility] Comment on above: Performed By: #### L [id number] ####[facility] ([facility] [place] [address] CO2 [Moles/Vol] 29 mmol/L Normal 21-31 [facility] Comment on above: Performed By: #### L [id number] ####[facility] ([facility] [place] [address] Creatinine [Mass/Vol] 1.11 mg/dL Normal 0.70-1.30 [facility] Comment on above: Performed By: #### L [id number] ####[facility] ([facility] [place] [address] GLOMERULAR FILTRATION RATE ML/MIN/1.73 SQ M.PREDICTED 80.9 mL/min/1.73m*2 Normal >60.0 [facility] Comment on above: Result Comment: The [facility]???s estimated glomerular filtration rate (eGFR) will [...] of individuals. Performed By: #### L [id number] ####[facility] ([facility])[address] [place] [address] Glucose [Mass/Vol] 119 mg/dL High 70-100 [facility] Comment on above: Performed By: #### L [id number] ####[facility] ([facility])[address] [place] [address] Potassium [Moles/Vol] 4.3 mmol/L Normal 3.5-5.1 [facility] Comment on above: Performed By: #### L [id number] ####[facility] ([facility])[address] [place] [address] Sodium [Moles/Vol] 136 mmol/L Normal 136-145 [facility] Comment on above: Performed By: #### L [id number] ####[facility] ([facility] [place] [address] Urea nitrogen [Mass/Vol] 22 mg/dL Normal 7-25 [facility] Comment on above: Performed By: #### L [id number] ####[facility] ([facility])[address] [place] [address] UREA NITROGEN/CREATININE (MASS RATIO) IN SER/PLAS 19.8 Normal [facility] Comment on above: Performed By: #### L [id number] ####[facility] ([facility])[address] [place] [address] Anion gap [Moles/Vol] 11 mmol/L Normal 7-20 [facility] Comment on above: Performed By: #### L [id number] ####[facility] ([facility] [place] [address] Calcium [Mass/Vol] 9.1 mg/dL Normal 8.6-10.3 [facility] Comment on above: Performed By: #### L [id number] ####[facility] ([facility] [place] [address] Chloride [Moles/Vol] 98 mmol/L Normal 98-107 [facility] Comment on above: Performed By: #### L [id number] ####[facility] ([facility] [place] [address] CO2 [Moles/Vol] 30 mmol/L Normal 21-31 [facility] Comment on above: Performed By: #### L [id number] ####[facility] ([facility] [place] [address] Creatinine [Mass/Vol] 1.25 mg/dL Normal 0.70-1.30 [facility] Comment on above: Performed By: #### L [id number] ####[facility] ([facility] [place] [address] GLOMERULAR FILTRATION RATE ML/MIN/1.73 SQ M.PREDICTED 70.2 mL/min/1.73m*2 Normal >60.0 [facility] Comment on above: Result Comment: The [facility]???s estimated glomerular filtration rate (eGFR) will [...] of individuals. Performed By: #### L [id number] ####[facility] ([facility])[address] [place] [address] Glucose [Mass/Vol] 105 mg/dL High 70-100 [facility] Comment on above: Performed By: #### L [id number] ####[facility] ([facility] [place] [address] Potassium [Moles/Vol] 4.2 mmol/L Normal 3.5-5.1 [facility] Comment on above: Performed By: #### L [id number] ####[facility] ([facility] [place] [address] Sodium [Moles/Vol] 135 mmol/L Low 136-145 [facility] Comment on above: Performed By: #### L [id number] ####[facility] ([facility] [place] [address] Urea nitrogen [Mass/Vol] 22 mg/dL Normal 7-25 [facility] Comment on above: Performed By: #### L [id number] ####[facility] ([facility])[address] [place] [address] UREA NITROGEN/CREATININE (MASS RATIO) IN SER/PLAS 17.6 [facility] Comment on above: Performed By: #### L [id number] ####[facility] ([facility])[address] [place] [address] BLOOD CULTUREon 09-03-2023 Bacteria identified Cx Nom (Bld) No growth at 5 days Normal [facility] Comment on above: Order Comment: From a different site than #1. Performed By: #### L [id number] ####[facility] ([facility] [place] [address]: [address] d Back on Insturment BODY FLUID CELL DIFFERENTIAL on 09-03-2023 BASOPHILS TOTAL PER COUNTED LEUKOCYTES IN BODY FLUID BY MANUAL COUNT 2 Normal [facility] Comment on above: Order Comment: Diffe rential performed on cytospin Performed By: #### L [id number] ####[facility] ([facility])[address] [place] [address] CELLS COUNTED TOTAL (#) IN BODY FLUID 100 [facility] Comment on above: Order Comment: Diffe rential performed on cytospin Performed By: #### L [id number] ####[facility] ([facility])[address] [place] [address] EOSINOPHILS TOTAL PER COUNTED LEUKOCYTES IN BODY FLUID BY MANUAL COUNT 3 [facility] Comment on above: Order Comment: Diffe rential performed on cytospin Performed By: #### L [id number] ####[facility] ([facility])[address] [place] [address] LYMPHOCYTES TOTAL PER COUNTED LEUKOCYTES IN BODY FLUID BY MANUAL COUNT 53 [facility] Comment on above: Order Comment: Diffe rential performed on cytospin Performed By: #### L [id number] ####[facility] ([facility])[address] [place] [address] MESOTHELIAL CELLS TOTAL PER COUNTED LEUKOCYTES IN BODY FLUID BY MANUAL COUN 1 [facility] Comment on above: Order Comment: Diffe rential performed on cytospin Performed By: #### L [id number] ####[facility] ([facility])[address] [place] [address] MONOCYTES+MACROPHAGE S TOTAL PER COUNTED LEUKOCYTES IN BODY FLUID BY MANUAL 0 [facility] Comment on above: Order Comment: Diffe rential performed on cytospin Performed By: #### L [id number] ####[facility] ([facility])[address] [place] [address] NEUTROPHILS TOTAL PER COUNTED LEUKOCYTES IN BODY FLUID BY MANUAL COUNT 41 [facility] Comment on above: Order Comment: Diffe rential performed on cytospin Performed By: #### L [id number] ####[facility] ([facility])[address] [place] [address] OTHER CELLS BODY FLUID (MANUAL) 0 [facility] Comment on above: Order Comment: Diffe rential performed on cytospin Performed By: #### L [id number] ####[facility] ([facility])[address] [place] [address] BODY FLUID CULTUREon 024 Bacteria identified Cx Nom (Unsp spec) No growth at 5 days Normal [facility] Comment on above: Performed By: #### L [id number] ####[facility] ([facility] [place] [address] GRAM STAIN RESULT Normal [facility] Comment on above: Result Comment: Poly morphonuclear leukocytesNo organisms seen Performed By: #### L [id number] ####[facility] ([facility] [place] [address] C-REACTIVE PROTEINon 024 C REACTIVE PROTEIN (MG/L) IN SER/PLAS 20.7 mg/L High 0.0-7.0 [facility] Comment on above: Performed By: #### L [id number] ####[facility] ([facility])[address] [place] [address] CBCon 09-03-2023 Erythrocyte distribution width (RBC) [Ratio] 15.4 % High 11.5-15.0 [facility] Comment on above: Performed By: #### L [id number] ####[facility] ([facility])[address] [place] [address] ERYTHROCYTE MEAN CORPUSCULAR HEMOGLOBIN CONCENTRATION (G/DL) BY AUTOMATED 30.5 g/dL Low 32.0-35.0 [facility] Comment on above: Performed By: #### L [id number] ####[facility] ([facility] [place] [address] Hematocrit (Bld) [Volume fraction] 36.4 % Low 39.0-55.0 [facility] Comment on above: Performed By: #### L [id number] ####[facility] ([facility] [place] [address] Hemoglobin (Bld) [Mass/Vol] 11.1 g/dL Low 13.0-17.0 [facility] Comment on above: Performed By: #### L [id number] ####[facility] ([facility])[address] [place] [address] MCH (RBC) [Entitic mass] 24.7 pg Low 27.0-33.0 [facility] Comment on above: Performed By: #### L [id number] ####[facility] ([facility])[address] [place] [address] MCV (RBC) [Entitic vol] 81.1 fL Low 82.0-98.0 [facility] Comment on above: Performed By: #### L [id number] ####[facility] ([facility])[address] [place] [address] PLATELETS (10*3/UL) IN BLOOD AUTOMATED COUNT 228 10*3/uL Normal 150-400 [facility] Comment on above: Performed By: #### L [id number] ####[facility] ([facility] [place] [address] RBC (Bld) [#/Vol] 4.49 10*6/uL Normal 4.20-5.70 [facility] Comment on above: Performed By: #### L [id number] ####[facility] ([facility])[address] [place] [address] WBC (Bld) [#/Vol] 9.94 10*3/uL Normal 4.00-10.60 [facility] Comment on above: Performed By: #### L [id number] ####[facility] ([facility] [place] [address] Erythrocyte distribution width (RBC) [Ratio] 15.6 % High 11.5-15.0 [facility] Comment on above: Performed By: #### L [id number] ####[facility] ([facility])[address] [place] [address] ERYTHROCYTE MEAN CORPUSCULAR HEMOGLOBIN CONCENTRATION (G/DL) BY AUTOMATED 30.1 g/dL Low 32.0-35.0 [facility] Comment on above: Performed By: #### L [id number] ####[facility] ([facility])[address] [place] [address] Hematocrit (Bld) [Volume fraction] 36.5 % Low 39.0-55.0 [facility] Comment on above: Performed By: #### L [id number] ####[facility] ([facility] [place] [address] Hemoglobin (Bld) [Mass/Vol] 11.0 g/dL Low 13.0-17.0 [facility] Comment on above: Performed By: #### L [id number] ####[facility] ([facility])[address] [place] [address] MCH (RBC) [Entitic mass] 24.0 pg Low 27.0-33.0 [facility] Comment on above: Performed By: #### L [id number] ####[facility] ([facility] [place] [address] MCV (RBC) [Entitic vol] 79.7 fL Low 82.0-98.0 [facility] Comment on above: Performed By: #### L [id number] ####[facility] ([facility])[address] [place] [address] PLATELETS (10*3/UL) IN BLOOD AUTOMATED COUNT 238 10*3/uL Normal 150-400 [facility] Comment on above: Performed By: #### L [id number] ####[facility] ([facility] [place] [address] RBC (Bld) [#/Vol] 4.58 10*6/uL Normal 4.20-5.70 [facility] Comment on above: Performed By: #### L [id number] ####[facility] ([facility])[address] [place] [address] WBC (Bld) [#/Vol] 10.35 10*3/uL Normal 4.00-10.60 [facility] Comment on above: Performed By: #### L [id number] ####[facility] ([facility])[address] [place] [address] CONSULTon 06-04-2024 CONSULT Normal [facility] GLUCOSE, BODY FLUIDon 2023 GLUCOSE (MG/DL) IN BODY FLUID 33 mg/dL Normal [facility] Comment on above: Result Comment: The reference range and other method performance specifications have not been established for this test in fluids. the test result should be integrated into the clinical context for interpretation. Performed By: #### L [id number] ####[facility] ([facility])[address] [place] [address] HPon 09-03-2023 HP Normal [facility] HP Normal [facility] LACTATE DEHYDROGENASE, BODY FLUIDon 09-03-2023 LACTATE DEHYDROGENASE (U/L) IN BODY FLUID BY LAC->PYR 1022 U/L Normal [facility] Comment on above: Result Comment: The reference range and other method performance specifications have not been established for this test in fluids. the test result should be integrated into the clinical context for interpretation. Performed By: #### L [id number] ####[facility] ([facility] [place] [address] MAGNESIUMon 09-03-2023 Magnesium [Mass/Vol] 2.0 mg/dL Normal 1.9-2.7 [facility] Comment on above: Performed By: #### L [id number] ####[facility] ([facility])[address] [place] [address] Magnesium [Mass/Vol] 1.8 mg/dL Low 1.9-2.7 [facility] Comment on above: Performed By: #### L [id number] ####[facility] ([facility])[address] [place] [address] NON-TELEPHONE LINEMAN CYTOLOGY - CELLULAR EXAMon 09-03-2023 LAB AP CASE REPORT Normal [facility] Comment on above: Result Comment: Non- gynecologic Cytology Case: [id number] Provider: Art George MD Collected: 09/03/2023 1415Ordering Location: [facility] Received: 09/04/2023 0654Pathologist: LILIA Gutierrezpecimen: Pericardial Fluid Performed By: #### L [id number] ####[facility] [place] [address] LAB AP CLINICAL INFORMATION Normal [facility] Comment on above: Result Comment: Post -Op DiagnosesNo Dx found. Performed By: #### L [id number] ####[facility] ([facility] [place] [address] LAB AP GROSS DESCRIPTION [facility] Comment on above: Result Comment: 900 mL opaque, dark red fluid. Performed By: #### L [id number] ####[facility] ([facility])[address] [place] [address] LAB AP REPORT FINAL DIAGNOSIS NARRATIVE Normal [facility] Comment on above: Result Comment: A. P ericardial Fluid: - Negative for malignancy Performed By: #### L [id number] ####[facility] ([facility])[address] [place] [address] PATHOLOGY REVIEWon PATHOLOGY REVIEW Reviewed. Normal [facility] Comment on above: Result Comment: Elec tronically signed by Brenton Sorensen MD on 09/04/23 at 8:43 AM. Performed By: #### L [id number] ####[facility] ([facility])[address] [place] [address] PHOSPHORUSon 09-03-2023 Magnesium [Mass/Vol] 4.5 mg/dL Normal 2.5-5.0 [facility] Comment on above: Performed By: #### L [id number] ####[facility] ([facility])[address] [place] [address] Magnesium [Mass/Vol] 4.3 mg/dL Normal 2.5-5.0 [facility] Comment on above: Performed By: #### L [id number] ####[facility] ([facility] [place] [address] PROTEIN, BODY FLUIDon 2023 Protein (Body fld) [Mass/Vol] 5.0 g/dL [facility] Comment on above: Result Comment: The reference range and other method performance specifications have not been established for this test in fluids. the test result should be integrated into the clinical context for interpretation. Performed By: #### L [id number] ####[facility] (Hired)[address] [place] [address] PROTIME-INRon 09-03-2023 INR IN PPP BY COAGULATION ASSAY 1.61 High 0.90-1.10 [facility] Comment on above: Result Comment: [facility] P RECOMMENDED INR FOR WARFARIN THERAPY CONDITION INRPROPHYLAXIS OF VENOUS THROMBOSIS 2-3(HIGH-RISK SURGERY)TREATMENT OF VENOUS THROMBOSIS 2-3TREATMENT OF PULMONARY EMBOLISM 2-3PREVENTION OF SYSTEMIC EMBOLISM: 2-3 ACUTE MYOCARDIAL INFARCTION TISSUE HEART VALVES VALVULAR HEART DISEASE ATRIAL FIBRILLATION RECURRENT SYSTEMIC EMBOLISMMECHANICAL HEART VALVE 2.5-3.5 FROM: ORAL ANTICOAGULANTS. MECHANISM OF ACTION, CLINICAL EFFECTIVENESS, AND OPTIMAL THERAPEUTIC RANGE. CHEST 1995;108:231S-246S. Performed By: #### L [id number] ####[facility] ([facility])[address] [place] [address] PROTHROMBIN TIME (PT) IN PPP BY COAGULATION ASSAY 19.0 Seconds High 12.3-14.8 [facility] Comment on above: Performed By: #### L [id number] ####[facility] (BEAKER)[address] [place] [address] INR IN PPP BY COAGULATION ASSAY 1.57 High 0.90-1.10 [facility] Comment on above: Result Comment: [facility] P RECOMMENDED INR FOR WARFARIN THERAPY CONDITION INRPROPHYLAXIS OF VENOUS THROMBOSIS 2-3(HIGH-RISK SURGERY)TREATMENT OF VENOUS THROMBOSIS 2-3TREATMENT OF PULMONARY EMBOLISM 2-3PREVENTION OF SYSTEMIC EMBOLISM: 2-3 ACUTE MYOCARDIAL INFARCTION TISSUE HEART VALVES VALVULAR HEART DISEASE ATRIAL FIBRILLATION RECURRENT SYSTEMIC EMBOLISMMECHANICAL HEART VALVE 2.5-3.5 FROM: ORAL ANTICOAGULANTS. MECHANISM OF ACTION, CLINICAL EFFECTIVENESS, AND OPTIMAL THERAPEUTIC RANGE. CHEST 1995;108:231S-246S. Performed By: #### L [id number] ####[facility] ([facility])[address] [place] [address] PROTHROMBIN TIME (PT) IN PPP BY COAGULATION ASSAY 18.6 Seconds High 12.3-14.8 [facility] Comment on above: Performed By: #### L [id number] ####[facility] ([facility])[address] [place] [address] TYPE AND SCREENon 09-03-2023 AB SCREEN Negative [facility] Comment on above: Performed By: #### L [id number] ####[facility], ABO group Nom (Bld) A Normal [facility] Comment on above: Performed By: #### L [id number] ####[facility], RH TYPE IN BLOOD Negative Normal [facility] Comment on above: Performed By: #### L [id number] ####[facility], 08-30-2023 36 Order faxed. [facility] 36on 08-28-2023 36 [facility] Family Medicine Office/Clini c Noteon 08-28-2023 Family Medicine Office/Clinic Note HPI Staff Nehal is a 52 year old male presenting to establish care Establish Care: History: Any previous diagnosis: HTN, Heel spurs Asthma, Depression, headaches, headaches, migraines, kidney stones, JACOBY History of seeing any specialist: Dr yung quiñones When was your last doctors visit: Last provider: Dr Aguillon Any recent labs: [facility] around 8 months ago Flu: refused Health Maintenance UTD: Colonoscopy: 2021 PSA: unsure if it has ever been checked Acute: Current issues/complaints: Pt has sleep study done and uses machine would like cpap supplies sent to [facility] [employer] in [place] pt does wear full mask- Resmed Air [...] provided. pt will have them done at [facility] on Saturday. Ordered: Misc Prescription, Full [...] will send order to medical supplies in [place] Ordered: Misc Prescription, Full Mask Resmed Air [...] # 90 tab(s), Refills(s) 3, Pharmacy: [facility]/pharmacy #[id number], 185.5, cm, 01/09/23 16:37:00 EDT, Height/Length Dosing, 174.3, kg, 01/09/23 16:37:00 EDT, Weight Dosing Follow-up No qualifying data (more content not included)... Normal [facility] Comment on above: Result Comment: Elec tronically Signed By: Yolanda SOTELO, Vonnie Estrada\.br\Date and Time Signed: 08/28/23 09:59 EDT Telephoneon 08-27-2023 Telephone Normal [facility] 36on 08-14-2023 36 Normal [facility] Orders Onlyon 08-12-2023 Orders Only Normal [facility] Orders Onlyon 08-08-2023 Orders Only Normal [facility] 37on 08-07-2023 37 Continue to monitor for signs and symptoms of infection including fever, chills, shortness of breath, chest pain, abdominal pain, nausea, vomiting and diarrhea. Call our office if you notice any of these or go to the ED if needing to Normal [facility] BASIC METABOLIC PANELon 05-0 Anion gap [Moles/Vol] 11 mmol/L Normal 7-20 [facility] Comment on above: Performed By: #### L [id number] ####[facility] ([facility])[address] [place] [address] Calcium [Mass/Vol] 9.1 mg/dL Normal 8.6-10.3 [facility] Comment on above: Performed By: #### L [id number] ####[facility] ([facility])[address] [place] [address] Chloride [Moles/Vol] 101 mmol/L Normal 98-107 [facility] Comment on above: Performed By: #### L [id number] ####[facility] ([facility] [place] [address] CO2 [Moles/Vol] 31 mmol/L Normal 21-31 [facility] Comment on above: Performed By: #### L [id number] ####[facility] ([facility] [place] [address] Creatinine [Mass/Vol] 0.93 mg/dL Normal 0.70-1.30 [facility] Comment on above: Performed By: #### L [id number] ####[facility] ([facility])[address] [place] [address] GLOMERULAR FILTRATION RATE ML/MIN/1.73 SQ M.PREDICTED 100.0 mL/min/1.73m*2 Normal >60.0 [facility] Comment on above: Result Comment: [facility]???s estimated glomerular filtration rate (eGFR) will [...] of individuals. Performed By: #### L [id number] ####[facility] ([facility] [place] [address] Glucose [Mass/Vol] 91 mg/dL Normal 70-100 [facility] Comment on above: Performed By: #### L [id number] ####[facility] ([facility] [place] [address] Potassium [Moles/Vol] 4.3 mmol/L Normal 3.5-5.1 [facility] Comment on above: Performed By: #### L [id number] ####[facility] ([facility])[address] [place] [address] Sodium [Moles/Vol] 139 mmol/L Normal 136-145 [facility] Comment on above: Performed By: #### L [id number] ####[facility] ([facility])[address] [place] [address] Urea nitrogen [Mass/Vol] 8 mg/dL Normal 7-25 [facility] Comment on above: Performed By: #### L [id number] ####[facility] ([facility])[address] [place] [address] UREA NITROGEN/CREATININE (MASS RATIO) IN SER/PLAS 8.6 Normal [facility] Comment on above: Performed By: #### L [id number] ####[facility] ([facility])[address] [place] [address] C-REACTIVE PROTEINon 024 C REACTIVE PROTEIN (MG/L) IN SER/PLAS 21.4 mg/L High 0.0-7.0 [facility] Comment on above: Performed By: #### L [id number] ####[facility] ([facility])[address] [place] [address] Follow-Upon 08-07-2023 Follow-Up Normal [facility] Labon 08-07-2023 Lab Normal [facility] SEDIMENTATION RATEon 024 SEDIMENTATION RATE, ERYTHROCYTE 49 mm/hr High <=10 [facility] Comment on above: Performed By: #### L [id number] ####[facility] ([facility])[address] [place] [address] Orders Onlyon 08-05-2023 Orders Only Normal [facility] 36on 07-25-2023 36 Phoned Coumadin clin ic regarding patients recent INR of 1.87. Spoke with RN regarding valve parameters for INR of 2.0-2.5 for first three months post op. RN noted that the patients coumadin would be adjusted to meet the therapeutic range. [facility] Documentationon 07-23-2023 Documentation [facility] 37on 07-17-2023 37 [facility] Follow-Upon 07-17-2023 Follow-Up [facility] Refillon 07-17-2023 Refill [facility] 36on 07-11-2023 36 I received a call fr anders Urias stating the patient has been experiencing low BP and lightheadedness. BP: 96/54 So, she is wondering if his Lisinopril can be DC. He is currently still taking the Metoprolol as prescribed. [facility] Telephoneon 07-11-2023 Telephone [facility] 36on 07-08-2023 36 Opat received. Eliu villalobosed orders with Pina at [facility]. Has an appt w/ Annabella 07/14. [facility] BASIC METABOLIC PANELon Anion gap [Moles/Vol] 12 mmol/L Normal 7-20 [facility] Comment on above: Performed By: #### L [id number] ####[facility] ([facility])[address] [place] [address] Calcium [Mass/Vol] 8.7 mg/dL Normal 8.6-10.3 [facility] Comment on above: Performed By: #### L [id number] ####[facility] ([facility])[address] [place] [address] Chloride [Moles/Vol] 102 mmol/L Normal 98-107 [facility] Comment on above: Performed By: #### L [id number] ####[facility] ([facility])[address] [place] [address] CO2 [Moles/Vol] 25 mmol/L Normal 21-31 [facility] Comment on above: Performed By: #### L [id number] ####[facility] ([facility])[address] [place] [address] Creatinine [Mass/Vol] 1.02 mg/dL Normal 0.70-1.30 [facility] Comment on above: Performed By: #### L [id number] ####[facility] ([facility])[address] [place] [address] GLOMERULAR FILTRATION RATE ML/MIN/1.73 SQ M.PREDICTED 89.5 mL/min/1.73m*2 Normal >60.0 [facility] Comment on above: Result Comment: [facility]???s estimated glomerular filtration rate (eGFR) will [...] of individuals. Performed By: #### L [id number] ####[facility] ([facility])[address] [place] [address] Glucose [Mass/Vol] 101 mg/dL High 70-100 [facility] Comment on above: Performed By: #### L [id number] ####[facility] ([facility])[address] [place] [address] Potassium [Moles/Vol] 3.9 mmol/L Normal 3.5-5.1 [facility] Comment on above: Performed By: #### L [id number] ####[facility] ([facility])[address] [place] [address] Sodium [Moles/Vol] 135 mmol/L Low 136-145 [facility] Comment on above: Performed By: #### L [id number] ####[facility] ([facility])[address] [facility] [place] [address] Urea nitrogen [Mass/Vol] 14 mg/dL Normal 7-25 [facility] Comment on above: Performed By: #### L [id number] ####[facility] ([facility])[address] [place] [address] UREA NITROGEN/CREATININE (MASS RATIO) IN SER/PLAS 13.7 Normal [facility] Comment on above: Performed By: #### L [id number] ####[facility] ([facility])[address] [place] [address] CBCon 07-05-2023 Erythrocyte distribution width (RBC) [Ratio] 15.7 % High 11.5-15.0 [facility] Comment on above: Performed By: #### L [id number] ####[facility] ([facility])[address] [place] [address] ERYTHROCYTE MEAN CORPUSCULAR HEMOGLOBIN CONCENTRATION (G/DL) BY AUTOMATED 31.8 g/dL Low 32.0-35.0 [facility] Comment on above: Performed By: #### L [id number] ####[facility] ([facility])[address] [place] [address] Hematocrit (Bld) [Volume fraction] 26.1 % Low 39.0-55.0 [facility] Comment on above: Performed By: #### L [id number] ####[facility] ([facility])[address] [place] [address] Hemoglobin (Bld) [Mass/Vol] 8.3 g/dL Low 13.0-17.0 [facility] Comment on above: Performed By: #### L [id number] ####[facility] ([facility])[address] [place] [address] MCH (RBC) [Entitic mass] 28.2 pg Normal 27.0-33.0 [facility] Comment on above: Performed By: #### L [id number] ####[facility] ([facility])[address] [place] [address] MCV (RBC) [Entitic vol] 88.8 fL Normal 82.0-98.0 [facility] Comment on above: Performed By: #### L [id number] ####[facility] ([facility])[address] [place] [address] PLATELETS (10*3/UL) IN BLOOD AUTOMATED COUNT 216 10*3/uL Normal 150-400 [facility] Comment on above: Performed By: #### L [id number] ####[facility] ([facility])[address] [place] [address] RBC (Bld) [#/Vol] 2.94 10*6/uL Low 4.20-5.70 [facility] Comment on above: Performed By: #### L [id number] ####[facility] ([facility])[address] [place] [address] WBC (Bld) [#/Vol] 4.87 10*3/uL Normal 4.00-10.60 [facility] Comment on above: Performed By: #### L [id number] ####[facility] ([facility])[address] [place] [address] DSon 07-05-2023 DS Normal [facility] Letter (Out)on 07-05-2023 Letter (Out) Normal [facility] MAGNESIUMon 07-05-2023 Magnesium [Mass/Vol] 1.9 mg/dL Normal 1.9-2.7 [facility] Comment on above: Performed By: #### L [id number] ####[facility] ([facility])[address] [place] [address] POCT GLUCOSE METER UNSOLICIT ED RESULTSon 07-05-2023 Glucose [Mass/Vol] 123 mg/dL High 70-105 [facility] Comment on above: Order Comment: Waive d Testing in the ED is performed under the ED CLIA certificate #[id number]. Result Comment: [email or web address] Performed By: #### L [id number] ####[facility] ([facility])[address] [place] [address] Glucose [Mass/Vol] 112 mg/dL High 70-105 [facility] Comment on above: Order Comment: Waive d Testing in the ED is performed under the ED CLIA certificate #[id number]. Result Comment: [email or web address] Performed By: #### L [id number] ####[facility] ([facility])[address] [place] [address] PROTIME-INRon 07-05-2023 INR IN PPP BY COAGULATION ASSAY 2.17 High 0.90-1.10 [facility] Comment on above: Result Comment: ACCC [...] CHEST 1995;108:231S-246S. Performed By: #### L [id number] ####[facility] ([facility])[address] [place] [address] PROTHROMBIN TIME (PT) IN PPP BY COAGULATION ASSAY 24.3 Seconds High 12.3-14.8 [facility] Comment on above: Performed By: #### L [id number] ####[facility] ([facility])[address] [place] [address] 30on 07-04-2023 30 Normal [facility] 30 Normal [facility] 30 Normal [facility] ANTI-XA (LOW MOLECULAR WGT H EPARIN LVL)on 07-04-2023 LMW HEPARIN (U/ML) IN PPP BY CHROMOGENIC METHOD 1.00 IU/mL Normal 0.6-1.2 [facility] Comment on above: Order Comment: For [...] and LMWH. Performed By: #### L [id number] ####[facility] ([facility])[address] [place] [address] BASIC METABOLIC PANELon 04-0 Anion gap [Moles/Vol] 10 mmol/L Normal 7-20 [facility] Comment on above: Performed By: #### L [id number] ####[facility] ([facility])[address] [place] [address] Calcium [Mass/Vol] 8.6 mg/dL Normal 8.6-10.3 [facility] Comment on above: Performed By: #### L [id number] ####[facility] ([facility])[address] [place] [address] Chloride [Moles/Vol] 103 mmol/L Normal 98-107 [facility] Comment on above: Performed By: #### L [id number] ####[facility] ([facility])[address] [place] [address] CO2 [Moles/Vol] 28 mmol/L Normal 21-31 [facility] Comment on above: Performed By: #### L [id number] ####[facility] ([facility])[address] [place] [address] Creatinine [Mass/Vol] 1.04 mg/dL Normal 0.70-1.30 [facility] Comment on above: Performed By: #### L [id number] ####[facility] ([facility])[address] [place] [address] GLOMERULAR FILTRATION RATE ML/MIN/1.73 SQ M.PREDICTED 87.5 mL/min/1.73m*2 Normal >60.0 [facility] Comment on above: Result Comment: [facility]???s estimated glomerular filtration rate (eGFR) will [...] of individuals. Performed By: #### L [id number] ####[facility] ([place])[address] [place] [address] Glucose [Mass/Vol] 91 mg/dL Normal 70-100 [facility] Comment on above: Performed By: #### L [id number] ####[facility] ([facility] [place] [address] Potassium [Moles/Vol] 4.6 mmol/L Normal 3.5-5.1 [facility] Comment on above: Performed By: #### L [id number] ####[facility] ([facility] [place] [address] Sodium [Moles/Vol] 136 mmol/L Normal 136-145 [facility] Comment on above: Performed By: #### L [id number] ####[facility] ([facility])[address] [facility] [address] Urea nitrogen [Mass/Vol] 13 mg/dL Normal 7-25 [facility] Comment on above: Performed By: #### L [id number] ####[facility] ([facility])[address] [facility] [place] [address] UREA NITROGEN/CREATININE (MASS RATIO) IN SER/PLAS 12.5 Normal [facility] Comment on above: Performed By: #### L [id number] ####[facility] ([facility])[address] [place] [address] CBCon 07-04-2023 Erythrocyte distribution width (RBC) [Ratio] 15.8 % High 11.5-15.0 [facility] Comment on above: Performed By: #### L [id number] ####[facility] ([facility] [place] [address] ERYTHROCYTE MEAN CORPUSCULAR HEMOGLOBIN CONCENTRATION (G/DL) BY AUTOMATED 32.0 g/dL Normal 32.0-35.0 [facility] Comment on above: Performed By: #### L [id number] ####[facility] ([facility])[address] [place] [address] Hematocrit (Bld) [Volume fraction] 24.7 % Low 39.0-55.0 [facility] Comment on above: Performed By: #### L [id number] ####[facility] ([facility] [place] [address] Hemoglobin (Bld) [Mass/Vol] 7.9 g/dL Low 13.0-17.0 [facility] Comment on above: Performed By: #### L [id number] ####[facility] ([facility] [place] [address] MCH (RBC) [Entitic mass] 28.9 pg Normal 27.0-33.0 [facility] Comment on above: Performed By: #### L [id number] ####[facility] ([facility] [place] [address] MCV (RBC) [Entitic vol] 90.5 fL Normal 82.0-98.0 [facility] Comment on above: Performed By: #### L [id number] ####[facility] ([facility] [place] [address] PLATELETS (10*3/UL) IN BLOOD AUTOMATED COUNT 243 10*3/uL Normal 150-400 [facility] Comment on above: Performed By: #### L [id number] ####[facility] ([facility])[address] [place] [address] RBC (Bld) [#/Vol] 2.73 10*6/uL Low 4.20-5.70 [facility] Comment on above: Performed By: #### L [id number] ####[facility] ([facility])[address] [place] [address] WBC (Bld) [#/Vol] 5.14 10*3/uL Normal 4.00-10.60 [facility] Comment on above: Performed By: #### L [id number] ####[facility] ([facility])[address] [place] [address] MAGNESIUMon 07-04-2023 Magnesium [Mass/Vol] 1.9 mg/dL Normal 1.9-2.7 [facility] Comment on above: Performed By: #### L [id number] ####[facility] ([facility])[address] [place] [address] POCT GLUCOSE METER UNSOLICIT ED RESULTSon 07-04-2023 Glucose [Mass/Vol] 112 mg/dL High 70-105 [facility] Comment on above: Order Comment: Waive d Testing in the ED is performed under the ED CLIA certificate #[id number]. Result Comment: [email or web address] Performed By: #### L [id number] ####[facility] ([facility])[address] [place] [address] Glucose [Mass/Vol] 130 mg/dL High 70-105 [facility] Comment on above: Order Comment: Waive d Testing in the ED is performed under the ED CLIA certificate #[id number]. Result Comment: [email or web address] Performed By: #### L [id number] ####[facility] ([facility])[address] [place] [address] Glucose [Mass/Vol] 127 mg/dL High 70-105 [facility] Comment on above: Order Comment: Waive d Testing in the ED is performed under the ED CLIA certificate #[id number]. Result Comment: [email or web address] Performed By: #### L [id number] ####[facility] ([facility])[address] [place] [address] Glucose [Mass/Vol] 113 mg/dL High 70-105 [facility] Comment on above: Order Comment: Waive d Testing in the ED is performed under the ED CLIA certificate #[id number]. Result Comment: [email or web address] Performed By: #### L [id number] ####[facility] ([facility])[address] [place] [address] PROTIME-INRon 07-04-2023 INR IN PPP BY COAGULATION ASSAY 1.77 High 0.90-1.10 [facility] Comment on above: Result Comment: ACCC [...] CHEST 1995;108:231S-246S. Performed By: #### L [id number] ####[facility] ([facility])[address] [place] [address] PROTHROMBIN TIME (PT) IN PPP BY COAGULATION ASSAY 20.7 Seconds High 12.3-14.8 [facility] Comment on above: Performed By: #### L [id number] ####[facility] ([facility])[address] [place] [address] 30on 07-03-2023 30 Normal [facility] ANTI-XA (HEPARIN LEVEL)on HEPARIN UNFRACTIONATED (U/ML) IN PPP BY CHROMOGENIC METHOD 0.12 IU/mL Invalid Interpretation Code 0.3-0.7 [facility] Comment on above: Result Comment: Sofy roxaban and Apixaban will interfere with the anti Xa assay used to monitor UFH and LMWH. Performed By: #### L [id number] ####[facility] ([facility])[address] [place] [address] BASIC METABOLIC PANELon 04-0 Anion gap [Moles/Vol] 11 mmol/L Normal 7-20 [facility] Comment on above: Performed By: #### L [id number] ####[facility] ([facility])[address] [place] [address] Calcium [Mass/Vol] 8.9 mg/dL Normal 8.6-10.3 [facility] Comment on above: Performed By: #### L [id number] ####[facility] ([facility])[address] [place] [address] Chloride [Moles/Vol] 101 mmol/L Normal 98-107 [facility] Comment on above: Performed By: #### L [id number] ####[facility] ([facility])[address] [place] [address] CO2 [Moles/Vol] 28 mmol/L Normal 21-31 [facility] Comment on above: Performed By: #### L [id number] ####[facility] ([facility])[address] [place] [address] Creatinine [Mass/Vol] 1.03 mg/dL Normal 0.70-1.30 [facility] Comment on above: Performed By: #### L [id number] ####[facility] [facility] [address] GLOMERULAR FILTRATION RATE ML/MIN/1.73 SQ M.PREDICTED 88.5 mL/min/1.73m*2 Normal >60.0 [facility] Comment on above: Result Comment: [facility]???s estimated glomerular filtration rate (eGFR) will [...] of individuals. Performed By: #### L [id number] ####[facility] ([facility])[address] [facility] [address] Glucose [Mass/Vol] 87 mg/dL Normal 70-100 [facility] Comment on above: Performed By: #### L [id number] ####[facility] ([facility])[address] [facility] [place] [address] Potassium [Moles/Vol] 4.4 mmol/L Normal 3.5-5.1 [facility] Comment on above: Performed By: #### L [id number] ####[facility] ([facility])[address] [facility] [address] Sodium [Moles/Vol] 136 mmol/L Normal 136-145 [facility] Comment on above: Performed By: #### L [id number] ####[facility] ([facility])[address] [facility] [address] Urea nitrogen [Mass/Vol] 13 mg/dL Normal 7-25 [facility] Comment on above: Performed By: #### L [id number] ####[facility] ([facility])[address] [place] [address] UREA NITROGEN/CREATININE (MASS RATIO) IN SER/PLAS 12.6 Normal [facility] Comment on above: Performed By: #### L [id number] ####[facility] ([facility])[address] [facility] [address] CBCon 07-03-2023 Erythrocyte distribution width (RBC) [Ratio] 15.5 % High 11.5-15.0 [facility] Comment on above: Performed By: #### L [id number] ####[facility] ([facility])[address] [address] ERYTHROCYTE MEAN CORPUSCULAR HEMOGLOBIN CONCENTRATION (G/DL) BY AUTOMATED 31.9 g/dL Low 32.0-35.0 [facility] Comment on above: Performed By: #### L [id number] ####[facility] ([facility])[address] [place] [address] Hematocrit (Bld) [Volume fraction] 25.4 % Low 39.0-55.0 [facility] Comment on above: Performed By: #### L [id number] ####[facility] ([facility])[address] [place], [place] [address] Hemoglobin (Bld) [Mass/Vol] 8.1 g/dL Low 13.0-17.0 [facility] Comment on above: Performed By: #### L [id number] ####[facility] ([facility])[address] [place] [address] MCH (RBC) [Entitic mass] 28.8 pg Normal 27.0-33.0 [facility] Comment on above: Performed By: #### L [id number] ####[facility] [place] [address] MCV (RBC) [Entitic vol] 90.4 fL Normal 82.0-98.0 [facility] Comment on above: Performed By: #### L [id number] ####[facility] ([facility])[address] [place] [address] PLATELETS (10*3/UL) IN BLOOD AUTOMATED COUNT 247 10*3/uL Normal 150-400 [facility] Comment on above: Performed By: #### L [id number] ####[facility] ([facility])[address] [place], [place] [address] RBC (Bld) [#/Vol] 2.81 10*6/uL Low 4.20-5.70 [facility] Comment on above: Performed By: #### L [id number] ####[facility] ([facility])[address] [place] [address] WBC (Bld) [#/Vol] 4.31 10*3/uL Normal 4.00-10.60 [facility] Comment on above: Performed By: #### L [id number] ####[facility] ([facility])[address] [place] [address] MAGNESIUMon 07-03-2023 Magnesium [Mass/Vol] 2.0 mg/dL Normal 1.9-2.7 [facility] Comment on above: Performed By: #### L [id number] ####[facility] ([facility])[address] [place] [address] POCT GLUCOSE METER UNSOLICIT ED RESULTSon 07-03-2023 Glucose [Mass/Vol] 127 mg/dL High 70-105 [facility] Comment on above: Order Comment: Waive d Testing in the ED is performed under the ED CLIA certificate #[id number]. Result Comment: [email or web address] Performed By: #### L [id number] ####[facility] ([facility])[address] [place] [address] Glucose [Mass/Vol] 129 mg/dL High 70-105 [facility] Comment on above: Order Comment: Waive d Testing in the ED is performed under the ED CLIA certificate #[id number]. Result Comment: [email or web address] [email or web address] Performed By: #### L [id number] ####[facility] ([facility])[address] [place] [address] Glucose [Mass/Vol] 135 mg/dL High 70-105 [facility] Comment on above: Order Comment: Waive d Testing in the ED is performed under the ED CLIA certificate #[id number]. Result Comment: [email or web address] [email or web address] Performed By: #### L [id number] ####[facility] ([facility])[address] [place] [address] Glucose [Mass/Vol] 99 mg/dL Normal 70-105 [facility] Comment on above: Order Comment: Waive d Testing in the ED is performed under the ED CLIA certificate #[id number]. Result Comment: [facility] [email or web address] Performed By: #### L [id number] ####[facility] ([facility])[address] [place] [address] PROTIME-INRon 07-03-2023 INR IN PPP BY COAGULATION ASSAY 1.62 High 0.90-1.10 [facility] Comment on above: Result Comment: ACCC [...] CHEST 1995;108:231S-246S. Performed By: #### L [id number] ####[facility] ([facility])[address] [place] [address] PROTHROMBIN TIME (PT) IN PPP BY COAGULATION ASSAY 19.3 Seconds High 12.3-14.8 [facility] Comment on above: Performed By: #### L [id number] ####[facility] ([facility])[address] [place] [address] 30on 07-02-2023 30 The patient is Moder ately Stable - Low risk of patient condition declining or worsening The patient's goals for the shift include comfort, rest The clinical goals for the shift include Stable vitals, comfort Normal [facility] 30 Normal [facility] 30 Normal [facility] ANTI-XA (HEPARIN LEVEL)on HEPARIN UNFRACTIONATED (U/ML) IN PPP BY CHROMOGENIC METHOD 0.47 IU/mL Normal 0.3-0.7 [facility] Comment on above: Result Comment: [place] roxaban and Apixaban will interfere with the anti Xa assay used to monitor UFH and LMWH. Performed By: #### L [id number] ####[facility] ([facility])[address] [place] [address] BASIC METABOLIC PANELon 04-0 Anion gap [Moles/Vol] 12 mmol/L Normal 7-20 [facility] Comment on above: Performed By: #### L [id number] ####[facility] ([facility])[address] [place] [address] Calcium [Mass/Vol] 8.9 mg/dL Normal 8.6-10.3 [facility] Comment on above: Performed By: #### L [id number] ####[facility] ([facility])[address] [place] [address] Chloride [Moles/Vol] 97 mmol/L Low 98-107 [facility] Comment on above: Performed By: #### L [id number] ####[facility] ([facility])[address] [place] [address] CO2 [Moles/Vol] 28 mmol/L Normal 21-31 [facility] Comment on above: Performed By: #### L [id number] ####[facility] ([facility])[address] [place] [address] Creatinine [Mass/Vol] 1.00 mg/dL Normal 0.70-1.30 [facility] Comment on above: Performed By: #### L [id number] ####[facility] ([facility])[address] [place] [address] GLOMERULAR FILTRATION RATE ML/MIN/1.73 SQ M.PREDICTED 91.7 mL/min/1.73m*2 Normal >60.0 [facility] Comment on above: Result Comment: The [facility]???s estimated glomerular filtration rate (eGFR) will [...] of individuals. Performed By: #### L [id number] ####[facility] ([facility])[address] [place] [address] Glucose [Mass/Vol] 100 mg/dL Normal 70-100 [facility] Comment on above: Performed By: #### L [id number] ####[facility] ([facility])[address] [place] [address] Potassium [Moles/Vol] 3.9 mmol/L Normal 3.5-5.1 [facility] Comment on above: Performed By: #### L [id number] ####[facility] ([facility])[address] [place] [address] Sodium [Moles/Vol] 133 mmol/L Low 136-145 [facility] Comment on above: Performed By: #### L [id number] ####[facility] ([facility])[address] [place] [address] Urea nitrogen [Mass/Vol] 10 mg/dL Normal 7-25 [facility] Comment on above: Performed By: #### L [id number] ####[facility] ([facility])[address] [place] [address] UREA NITROGEN/CREATININE (MASS RATIO) IN SER/PLAS 10.0 Normal [facility] Comment on above: Performed By: #### L [id number] ####[facility] ([facility])[address] [place] [address] CBC WITH AUTO DIFFERENTIALon 07-02-2023 Basophils (Bld) [#/Vol] 0.05 10*3/uL Normal 0.00-0.20 [facility] Comment on above: Performed By: #### L [id number] ####[facility] ([facility])[address] [place] [address] Basophils/100 WBC (Bld) 0.9 % Normal 0.0-1.0 [facility] Comment on above: Performed By: #### L [id number] ####[facility] ([facility])[address] [place] [address] Eosinophils (Bld) [#/Vol] 0.27 10*3/uL Normal 0.00-0.50 [facility] Comment on above: Performed By: #### L [id number] ####[facility] ([facility])[address] [place] [address] Eosinophils/100 WBC (Bld) 4.6 % Normal 0.0-6.0 [facility] Comment on above: Performed By: #### L [id number] ####[facility] ([facility])[address] [place] [address] Erythrocyte distribution width (RBC) [Ratio] 15.4 % High 11.5-15.0 [facility] Comment on above: Performed By: #### L [id number] ####[facility] ([facility])[address] [place] [address] ERYTHROCYTE MEAN CORPUSCULAR HEMOGLOBIN CONCENTRATION (G/DL) BY AUTOMATED 32.7 g/dL Normal 32.0-35.0 [facility] Comment on above: Performed By: #### L [id number] ####[facility] ([facility])[address] [place] [address] Hematocrit (Bld) [Volume fraction] 27.2 % Low 39.0-55.0 [facility] Comment on above: Performed By: #### L [id number] ####[facility] ([facility])[address] [place] [address] Hemoglobin (Bld) [Mass/Vol] 8.9 g/dL Low 13.0-17.0 [facility] Comment on above: Performed By: #### L [id number] ####[facility] ([facility])[address] [place] [address] Immature granulocytes (Bld) [#/Vol] 0.04 10*3/uL Normal 0.00-0.20 [facility] Comment on above: Performed By: #### L [id number] ####[facility] ([facility])[address] [place] [address] Immature granulocytes/100 WBC (Bld) 0.7 % Normal 0.0-1.0 [facility] Comment on above: Performed By: #### L [id number] ####[facility] ([facility])[address] [place] [address] Lymphocytes (Bld) [#/Vol] 1.10 10*3/uL Low 1.20-4.00 [facility] Comment on above: Performed By: #### L [id number] ####[facility] ([facility])[address] [place] [address] Lymphocytes/100 WBC (Bld) 18.8 % Low 20.0-45.0 [facility] Comment on above: Performed By: #### L [id number] ####[facility] ([facility])[address] [place] [address] MCH (RBC) [Entitic mass] 29.0 pg Normal 27.0-33.0 [facility] Comment on above: Performed By: #### L [id number] ####[facility] ([facility])[address] [place] [address] MCV (RBC) [Entitic vol] 88.6 fL Normal 82.0-98.0 [facility] Comment on above: Performed By: #### L [id number] ####[facility] ([facility])[address] [place] [address] Monocytes (Bld) [#/Vol] 0.73 10*3/uL Normal 0.10-1.00 [facility] Comment on above: Performed By: #### L [id number] ####[facility] ([facility])[address] [place] [address] Monocytes/100 WBC (Bld) 12.5 % High 5.0-12.0 [facility] Comment on above: Performed By: #### L [id number] ####[facility] ([facility] [place] [address] Neutrophils (Bld) [#/Vol] 3.67 10*3/uL Normal 1.60-7.60 [facility] Comment on above: Performed By: #### L [id number] ####[facility] ([facility])[address] [address] Neutrophils/100 WBC (Bld) 62.5 % Normal 40.0-72.0 [facility] Comment on above: Performed By: #### L [id number] ####[facility] ([facility])[address] [place] [address] NRBC (PER 100 WBCS) BY AUTOMATED COUNT 0.0 % Normal 0 [facility] Comment on above: Performed By: #### L [id number] ####[facility] ([facility])[address] [place] [address] PLATELETS (10*3/UL) IN BLOOD AUTOMATED COUNT 292 10*3/uL Normal 150-400 [facility] Comment on above: Performed By: #### L [id number] ####[facility] ([facility])[address] [place] [address] RBC (Bld) [#/Vol] 3.07 10*6/uL Low 4.20-5.70 [facility] Comment on above: Performed By: #### L [id number] ####[facility] ([facility] [place], [place] [address] WBC (Bld) [#/Vol] 5.86 10*3/uL Normal 4.00-10.60 [facility] Comment on above: Performed By: #### L [id number] ####[facility] ([facility])[address] [place] [address] MAGNESIUMon 07-02-2023 Magnesium [Mass/Vol] 2.0 mg/dL Normal 1.9-2.7 [facility] Comment on above: Performed By: #### L [id number] ####[facility] ([facility])[address] [place] [address] NURSNOTEon 07-02-2023 NURSNOTE Heparin level 0.47, no need for rate change at this time. Safety Maintained. Normal [facility] POCT GLUCOSE METER UNSOLICIT ED RESULTSon 07-02-2023 Glucose [Mass/Vol] 118 mg/dL High 70-105 [facility] Comment on above: Order Comment: Waive d Testing in the ED is performed under the ED CLIA certificate #[id number]. Result Comment: [email or web address] Performed By: #### L [id number] ####[facility] ([facility])[address] [facility] [address] Glucose [Mass/Vol] 154 mg/dL High 70-105 [facility] Comment on above: Order Comment: Waive d Testing in the ED is performed under the ED CLIA certificate #[id number]. Result Comment: [email or web address] [email or web address] Performed By: #### L [id number] ####[facility] ([place])[address] [place] [address] Glucose [Mass/Vol] 138 mg/dL High 70-105 [facility] Comment on above: Order Comment: Waive d Testing in the ED is performed under the ED CLIA certificate #[id number]. Result Comment: [email or web address] Performed By: #### L [id number] ####[facility] ([facility])[address] [facility] [address] Glucose [Mass/Vol] 106 mg/dL High 70-105 [facility] Comment on above: Order Comment: Waive d Testing in the ED is performed under the ED CLIA certificate #[id number]. Result Comment: [email or web address] [email or web address] Performed By: #### L [id number] ####[facility] ([facility])[address] [facility] [address] PROTIME-INRon 07-02-2023 INR IN PPP BY COAGULATION ASSAY 1.45 High 0.90-1.10 [facility] Comment on above: Result Comment: ACCC [...] CHEST 1995;108:231S-246S. Performed By: #### L [id number] ####[facility] [place] [address] PROTHROMBIN TIME (PT) IN PPP BY COAGULATION ASSAY 17.7 Seconds High 12.3-14.8 [facility] Comment on above: Performed By: #### L [id number] ####[facility] ([facility])[address] [place] [address] 30on 07-01-2023 30 Normal [facility] 30 Normal [facility] 30 Normal [facility] 30 The patient is Moder ately Stable - Low risk of patient condition declining or worsening The patient's goals for the shift include comfort The clinical goals for the shift include safety Normal [facility] ANTI-XA (HEPARIN LEVEL)on HEPARIN UNFRACTIONATED (U/ML) IN PPP BY CHROMOGENIC METHOD 0.38 IU/mL Normal 0.3-0.7 [facility] Comment on above: Result Comment: [place] roxaban and Apixaban will interfere with the anti Xa assay used to monitor UFH and LMWH. Performed By: #### L [id number] ####[facility] ([facility] [place] [address] BASIC METABOLIC PANELon 04-0 Anion gap [Moles/Vol] 12 mmol/L Normal 7-20 [facility] Comment on above: Performed By: #### L [id number] ####[facility] ([facility] [place] [address] Calcium [Mass/Vol] 8.6 mg/dL Normal 8.6-10.3 [facility] Comment on above: Performed By: #### L [id number] ####[facility] ([facility] [place] [address] Chloride [Moles/Vol] 95 mmol/L Low 98-107 [facility] Comment on above: Performed By: #### L [id number] ####[facility] ([facility] [place] [address] CO2 [Moles/Vol] 30 mmol/L Normal 21-31 [facility] Comment on above: Performed By: #### L [id number] ####[facility] ([facility] [place] [address] Creatinine [Mass/Vol] 0.89 mg/dL Normal 0.70-1.30 [facility] Comment on above: Performed By: #### L [id number] ####[facility] ([facility])[address] [place] [address] GLOMERULAR FILTRATION RATE ML/MIN/1.73 SQ M.PREDICTED 104.4 mL/min/1.73m*2 Normal >60.0 [facility] Comment on above: Result Comment: [facility]???s estimated glomerular filtration rate (eGFR) will [...] of individuals. Performed By: #### L [id number] ####[facility] ([facility])[address] [place] [address] Glucose [Mass/Vol] 95 mg/dL Normal 70-100 [facility] Comment on above: Performed By: #### L [id number] ####[facility] ([facility])[address] [place] [address] Potassium [Moles/Vol] 3.6 mmol/L Normal 3.5-5.1 [facility] Comment on above: Performed By: #### L [id number] ####[facility] ([facility] [place] [address] Sodium [Moles/Vol] 133 mmol/L Low 136-145 [facility] Comment on above: Performed By: #### L [id number] ####[facility] ([facility])[address] [place] [address] Urea nitrogen [Mass/Vol] 9 mg/dL Normal 7-25 [facility] Comment on above: Performed By: #### L [id number] ####[facility] ([facility])[address] [place] [address] UREA NITROGEN/CREATININE (MASS RATIO) IN SER/PLAS 10.1 Normal [facility] Comment on above: Performed By: #### L [id number] ####[facility] ([facility])[address] [place] [address] CBCon 07-01-2023 Erythrocyte distribution width (RBC) [Ratio] 15.3 % High 11.5-15.0 [facility] Comment on above: Performed By: #### L [id number] ####[facility] ([facility])[address] [place] [address] ERYTHROCYTE MEAN CORPUSCULAR HEMOGLOBIN CONCENTRATION (G/DL) BY AUTOMATED 33.1 g/dL Normal 32.0-35.0 [facility] Comment on above: Performed By: #### L [id number] ####[facility] ([facility])[address] [place] [address] Hematocrit (Bld) [Volume fraction] 24.2 % Low 39.0-55.0 [facility] Comment on above: Performed By: #### L [id number] ####[facility] ([facility])[address] [place] [address] Hemoglobin (Bld) [Mass/Vol] 8.0 g/dL Low 13.0-17.0 [facility] Comment on above: Performed By: #### L [id number] ####[facility] ([facility])[address] [place] [address] MCH (RBC) [Entitic mass] 29.1 pg Normal 27.0-33.0 [facility] Comment on above: Performed By: #### L [id number] ####[facility] ([facility])[address] [place] [address] MCV (RBC) [Entitic vol] 88.0 fL Normal 82.0-98.0 [facility] Comment on above: Performed By: #### L [id number] ####[facility] ([facility])[address] [place] [address] PLATELETS (10*3/UL) IN BLOOD AUTOMATED COUNT 218 10*3/uL Normal 150-400 [facility] Comment on above: Performed By: #### L [id number] ####[facility] ([facility])[address] [place] [address] RBC (Bld) [#/Vol] 2.75 10*6/uL Low 4.20-5.70 [facility] Comment on above: Performed By: #### L [id number] ####[facility] ([facility] [place] [address] WBC (Bld) [#/Vol] 4.96 10*3/uL Normal 4.00-10.60 [facility] Comment on above: Performed By: #### L [id number] ####[facility] ([facility])[address] [place] [address] CONSULTon 07-01-2023 CONSULT Normal [facility] MAGNESIUMon 07-01-2023 Magnesium [Mass/Vol] 2.0 mg/dL Normal 1.9-2.7 [facility] Comment on above: Performed By: #### L [id number] ####[facility] ([facility])[address] [place] [address] POCT GLUCOSE METER UNSOLICIT ED RESULTSon 07-01-2023 Glucose [Mass/Vol] 128 mg/dL High 70-105 [facility] Comment on above: Order Comment: Waive d Testing in the ED is performed under the ED CLIA certificate #[id number]. Result Comment: [email or web address] Performed By: #### L [id number] ####[facility] ([facility])[address] [place] [address] Glucose [Mass/Vol] 119 mg/dL High 70-105 [facility] Comment on above: Order Comment: Waive d Testing in the ED is performed under the ED CLIA certificate #[id number]. Result Comment: [email or web address] Performed By: #### L [id number] ####[facility] ([facility])[address] [place] [address] Glucose [Mass/Vol] 151 mg/dL High 70-105 [facility] Comment on above: Order Comment: Waive d Testing in the ED is performed under the ED CLIA certificate #[id number]. Result Comment: [email or web address] Performed By: #### L [id number] ####[facility] ([facility])[address] [place] [address] Glucose [Mass/Vol] 119 mg/dL High 70-105 [facility] Comment on above: Order Comment: Waive d Testing in the ED is performed under the ED CLIA certificate #[id number]. Result Comment: [email or web address] Performed By: #### L [id number] ####[facility] ([facility])[address] [place] [address] Glucose [Mass/Vol] 121 mg/dL High 70-105 [facility] Comment on above: Order Comment: Waive d Testing in the ED is performed under the ED CLIA certificate #[id number]. Result Comment: [email or web address] Performed By: #### L [id number] ####[facility] ([facility])[address] [place] [address] PROTIME-INRon 07-01-2023 INR IN PPP BY COAGULATION ASSAY 1.37 High 0.90-1.10 [facility] Comment on above: Result Comment: ACCC [...] CHEST 1995;108:231S-246S. Performed By: #### L [id number] ####[facility] ([facility])[address] [place] [address] PROTHROMBIN TIME (PT) IN PPP BY COAGULATION ASSAY 16.9 Seconds High 12.3-14.8 [facility] Comment on above: Performed By: #### L [id number] ####[facility] ([facility])[address] [place] [address] 30on 06-30-2023 30 Normal [facility] ANTI-XA (HEPARIN LEVEL)on HEPARIN UNFRACTIONATED (U/ML) IN PPP BY CHROMOGENIC METHOD 0.39 IU/mL Normal 0.3-0.7 [facility] Comment on above: Result Comment: [place] roxaban and Apixaban will interfere with the anti Xa assay used to monitor UFH and LMWH. Performed By: #### L [id number] ####[facility] (BEAKER)[address] [place] [address] BASIC METABOLIC PANELon 06-01 Anion gap [Moles/Vol] 11 mmol/L Normal 7-20 [facility] Comment on above: Performed By: #### L [id number] ####[facility] (BEAKER)[address] [place] [address] Calcium [Mass/Vol] 8.9 mg/dL Normal 8.6-10.3 [facility] Comment on above: Performed By: #### L [id number] ####[facility] (BEAKER)[address] [place] [address] Chloride [Moles/Vol] 96 mmol/L Low 98-107 [facility] Comment on above: Performed By: #### L [id number] ####[facility] (BEAKER)[address] [place] [address] CO2 [Moles/Vol] 30 mmol/L Normal -31 [facility] Comment on above: Performed By: #### L [id number] ####[facility] (BEAKER)[address] [place] [address] Creatinine [Mass/Vol] 0.78 mg/dL Normal 0.70-1.30 [facility] Comment on above: Performed By: #### L [id number] ####[facility] (BEAKER)[address] [place] [address] GLOMERULAR FILTRATION RATE ML/MIN/1.73 SQ M.PREDICTED 108.6 mL/min/1.73m*2 Normal >60.0 [facility] Comment on above: Result Comment: [facility]???s estimated glomerular filtration rate (eGFR) will [...] of individuals. Performed By: #### L [id number] ####[facility] (BEAKER)[address] [email or web address] [address] Glucose [Mass/Vol] 108 mg/dL High 70-100 [facility] Comment on above: Performed By: #### L [id number] ####[facility] ([facility]ER)[address] [email or web address] [address] Potassium [Moles/Vol] 3.9 mmol/L Normal 3.5-5.1 [facility] Comment on above: Performed By: #### L [id number] ####[facility] ([facility])[address] [email or web address] [address] Sodium [Moles/Vol] 133 mmol/L Low 136-145 [facility] Comment on above: Performed By: #### L [id number] ####[facility] (BE[facility]ER)[address] [facility] [place] [address] Urea nitrogen [Mass/Vol] 9 mg/dL Normal 7-25 [facility] Comment on above: Performed By: #### L [id number] ####[facility] ([facility]ER)[address] [facility] [address] UREA NITROGEN/CREATININE (MASS RATIO) IN SER/PLAS 11.5 Normal [facility] Comment on above: Performed By: #### L [id number] ####[facility] (BEAKER)[address] [place] [address] CBCon 06-30-2023 Erythrocyte distribution width (RBC) [Ratio] 15.4 % High 11.5-15.0 [facility] Comment on above: Performed By: #### L [id number] ####[facility] ([facility])[address] [place] [address] ERYTHROCYTE MEAN CORPUSCULAR HEMOGLOBIN CONCENTRATION (G/DL) BY AUTOMATED 33.6 g/dL Normal 32.0-35.0 [facility] Comment on above: Performed By: #### L [id number] ####[facility] ([facility])[address] [place] [address] Hematocrit (Bld) [Volume fraction] 24.4 % Low 39.0-55.0 [facility] Comment on above: Performed By: #### L [id number] ####[facility] ([facility])[address] [place] [address] Hemoglobin (Bld) [Mass/Vol] 8.2 g/dL Low 13.0-17.0 [facility] Comment on above: Performed By: #### L [id number] ####[facility] ([facility])[address] [place] [address] MCH (RBC) [Entitic mass] 28.9 pg Normal 27.0-33.0 [facility] Comment on above: Performed By: #### L [id number] ####[facility] ([facility])[address] [place] [address] MCV (RBC) [Entitic vol] 85.9 fL Normal 82.0-98.0 [facility] Comment on above: Performed By: #### L [id number] ####[facility] ([facility] [place] [address] PLATELETS (10*3/UL) IN BLOOD AUTOMATED COUNT 203 10*3/uL Normal 150-400 [facility] Comment on above: Performed By: #### L [id number] ####[facility] ([facility] [place] [address] RBC (Bld) [#/Vol] 2.84 10*6/uL Low 4.20-5.70 [facility] Comment on above: Performed By: #### L [id number] ####[facility] ([facility])[address] [place] [address] WBC (Bld) [#/Vol] 6.03 10*3/uL Normal 4.00-10.60 [facility] Comment on above: Performed By: #### L [id number] ####[facility] ([facility])[address] [place] [address] CKon 06-30-2023 CREATINE KINASE (U/L) IN SER/PLAS 144.0 U/L Normal 30.0-223.0 [facility] Comment on above: Performed By: #### L [id number] ####[facility] ([facility])[address] [place] [address] MAGNESIUMon 06-30-2023 Magnesium [Mass/Vol] 2.1 mg/dL Normal 1.9-2.7 [facility] Comment on above: Performed By: #### L [id number] ####[facility] ([facility])[address] [place] [address] Magnesium [Mass/Vol] 2.2 mg/dL Normal 1.9-2.7 [facility] Comment on above: Performed By: #### L [id number] ####[facility] ([facility])[address] [place] [address] POCT GLUCOSE METER UNSOLICIT ED RESULTSon 06-30-2023 Glucose [Mass/Vol] 243 mg/dL High 70-105 [facility] Comment on above: Order Comment: Waive d Testing in the ED is performed under the ED CLIA certificate #[id number]. Result Comment: [email or web address] Performed By: #### L [id number] ####[facility] ([facility])[address] [place] [address] Glucose [Mass/Vol] 112 mg/dL High 70-105 [facility] Comment on above: Order Comment: Waive d Testing in the ED is performed under the ED CLIA certificate #[id number]. Result Comment: [email or web address] Performed By: #### L [id number] ####[facility] ([facility])[address] [facility] [place] [address] Glucose [Mass/Vol] 124 mg/dL High 70-105 [facility] Comment on above: Order Comment: Waive d Testing in the ED is performed under the ED CLIA certificate #[id number]. Result Comment: [email or web address] Performed By: #### L [id number] ####[facility] ([facility])[address] [facility] [place] [address] Glucose [Mass/Vol] 158 mg/dL High 70-105 [facility] Comment on above: Order Comment: Waive d Testing in the ED is performed under the ED CLIA certificate #[id number]. Result Comment: [email or web address] Performed By: #### L [id number] ####[facility] ([place])[address] [place] [address] POTASSIUMon 06-30-2023 Potassium [Moles/Vol] 4.0 mmol/L Normal 3.5-5.1 [facility] Comment on above: Performed By: #### L [id number] ####[facility] ([facility])[address] [place] [address] PROTIME-INRon 06-30-2023 INR IN PPP BY COAGULATION ASSAY 1.21 High 0.90-1.10 [facility] Comment on above: Result Comment: ACCC [...] CHEST 1995;108:231S-246S. Performed By: #### L [id number] ####[facility] ([facility])[address] [place] [address] PROTHROMBIN TIME (PT) IN PPP BY COAGULATION ASSAY 15.4 Seconds High 12.3-14.8 [facility] Comment on above: Performed By: #### L [id number] ####[facility] ([facility])[address] [facility] [place] [address] 30on 06-29-2023 30 Normal [facility] 30 Normal [facility] ANTI-XA (HEPARIN LEVEL)on HEPARIN UNFRACTIONATED (U/ML) IN PPP BY CHROMOGENIC METHOD 0.30 IU/mL Normal 0.3-0.7 [facility] Comment on above: Result Comment: [place] roxaban and Apixaban will interfere with the anti Xa assay used to monitor UFH and LMWH. Performed By: #### L [id number] ####[facility] ([facility])[address] [place] [address] HEPARIN UNFRACTIONATED (U/ML) IN PPP BY CHROMOGENIC METHOD 0.31 IU/mL Normal 0.3-0.7 [facility] Comment on above: Result Comment: [place] roxaban and Apixaban will interfere with the anti Xa assay used to monitor UFH and LMWH. Performed By: #### L [id number] ####[facility] ([facility])[address] [place] [address] BASIC METABOLIC PANELon 06-01 Anion gap [Moles/Vol] 10 mmol/L Normal 7-20 [facility] Comment on above: Performed By: #### L [id number] ####[facility] ([facility])[address] [place] [address] Calcium [Mass/Vol] 8.3 mg/dL Low 8.6-10.3 [facility] Comment on above: Performed By: #### L [id number] ####[facility] ([facility])[address] [place] [address] Chloride [Moles/Vol] 96 mmol/L Low 98-107 [facility] Comment on above: Performed By: #### L [id number] ####[facility] ([facility])[address] [place] [address] CO2 [Moles/Vol] 29 mmol/L Normal 21-31 [facility] Comment on above: Performed By: #### L [id number] ####[facility] ([facility])[address] [place] [address] Creatinine [Mass/Vol] 0.74 mg/dL Normal 0.70-1.30 [facility] Comment on above: Performed By: #### L [id number] ####[facility] ([facility])[address] [place] [address] GLOMERULAR FILTRATION RATE ML/MIN/1.73 SQ M.PREDICTED 110.4 mL/min/1.73m*2 Normal >60.0 [facility] Comment on above: Result Comment: The [facility]???s estimated glomerular filtration rate (eGFR) will [...] of individuals. Performed By: #### L [id number] ####[facility] ([facility])[address] [place] [address] Glucose [Mass/Vol] 107 mg/dL High 70-100 [facility] Comment on above: Performed By: #### L [id number] ####[facility] ([facility])[address] [place] [address] Potassium [Moles/Vol] 4.3 mmol/L Normal 3.5-5.1 [facility] Comment on above: Performed By: #### L [id number] ####[facility] ([facility])[address] [place] [address] Sodium [Moles/Vol] 131 mmol/L Low 136-145 [facility] Comment on above: Performed By: #### L [id number] ####[facility] ([facility] [place] [address] Urea nitrogen [Mass/Vol] 9 mg/dL Normal 7-25 [facility] Comment on above: Performed By: #### L [id number] ####[facility] ([facility])[address] [place] [address] UREA NITROGEN/CREATININE (MASS RATIO) IN SER/PLAS 12.2 Normal [facility] Comment on above: Performed By: #### L [id number] ####[facility] ([facility])[address] [place] [address] CBCon 06-29-2023 Erythrocyte distribution width (RBC) [Ratio] 15.8 % High 11.5-15.0 [facility] Comment on above: Performed By: #### L [id number] ####[facility] ([facility])[address] [place] [address] ERYTHROCYTE MEAN CORPUSCULAR HEMOGLOBIN CONCENTRATION (G/DL) BY AUTOMATED 33.6 g/dL Normal 32.0-35.0 [facility] Comment on above: Performed By: #### L [id number] ####[facility] ([facility])[address] [place], [place] [address] Hematocrit (Bld) [Volume fraction] 23.5 % Low 39.0-55.0 [facility] Comment on above: Performed By: #### L [id number] ####[facility] (BEAKER)[address] [place] [address] Hemoglobin (Bld) [Mass/Vol] 7.9 g/dL Low 13.0-17.0 [facility] Comment on above: Performed By: #### L [id number] ####[facility] ([facility])[address] [place] [address] MCH (RBC) [Entitic mass] 29.5 pg Normal 27.0-33.0 [facility] Comment on above: Performed By: #### L [id number] ####[facility] ([facility])[address] [place] [address] MCV (RBC) [Entitic vol] 87.7 fL Normal 82.0-98.0 [facility] Comment on above: Performed By: #### L [id number] ####[facility] ([facility])[address] [place] [address] PLATELETS (10*3/UL) IN BLOOD AUTOMATED COUNT 161 10*3/uL Normal 150-400 [facility] Comment on above: Performed By: #### L [id number] ####[facility] ([facility])[address] [place] [address] RBC (Bld) [#/Vol] 2.68 10*6/uL Low 4.20-5.70 [facility] Comment on above: Performed By: #### L [id number] ####[facility] ([facility])[address] [place] [address] WBC (Bld) [#/Vol] 6.52 10*3/uL Normal 4.00-10.60 [facility] Comment on above: Performed By: #### L [id number] ####[facility] ([facility])[address] [place] [address] MAGNESIUMon 06-29-2023 Magnesium [Mass/Vol] 2.3 mg/dL Normal 1.9-2.7 [facility] Comment on above: Performed By: #### L [id number] ####[facility] ([facility] [place] [address] Magnesium [Mass/Vol] 2.0 mg/dL Normal 1.9-2.7 [facility] Comment on above: Performed By: #### L [id number] ####[facility] ([facility])[address] [place] [address] NURSNOTEon 06-29-2023 NURSNOTE Normal [facility] PHOSPHORUSon 06-29-2023 Magnesium [Mass/Vol] 3.2 mg/dL Normal 2.5-5.0 [facility] Comment on above: Performed By: #### L [id number] ####[facility] ([facility])[address] [place] [address] POCT GLUCOSE METER UNSOLICIT ED RESULTSon 06-29-2023 Glucose [Mass/Vol] 129 mg/dL High 70-105 [facility] Comment on above: Order Comment: Waive d Testing in the ED is performed under the ED CLIA certificate #[id number]. Result Comment: [email or web address] Performed By: #### L [id number] ####[facility] ([facility])[address] [place] [address] Glucose [Mass/Vol] 108 mg/dL High 70-105 [facility] Comment on above: Order Comment: Waive d Testing in the ED is performed under the ED CLIA certificate #[id number]. Result Comment: [email or web address] Performed By: #### L [id number] ####[facility] ([facility])[address] [place] [address] Glucose [Mass/Vol] 142 mg/dL High 70-105 [facility] Comment on above: Order Comment: Waive d Testing in the ED is performed under the ED CLIA certificate #[id number]. Result Comment: [email or web address] Performed By: #### L [id number] ####[facility] ([facility])[address] [place] [address] Glucose [Mass/Vol] 136 mg/dL High 70-105 [facility] Comment on above: Order Comment: Waive d Testing in the ED is performed under the ED CLIA certificate #[id number]. Result Comment: [email or web address] Performed By: #### L [id number] ####[facility] (BEAKER)[address] [place] [address] POTASSIUMon 06-29-2023 Potassium [Moles/Vol] 4.3 mmol/L Normal 3.5-5.1 [facility] Comment on above: Performed By: #### L [id number] ####[facility] ([facility])[address] [place] [address] PROTIME-INRon 06-29-2023 INR IN PPP BY COAGULATION ASSAY 1.13 High 0.90-1.10 [facility] Comment on above: Result Comment: ACCC [...] CHEST 1995;108:231S-246S. Performed By: #### L [id number] ####[facility] ([facility])[address] [place] [address] PROTHROMBIN TIME (PT) IN PPP BY COAGULATION ASSAY 14.5 Seconds Normal 12.3-14.8 [facility] Comment on above: Performed By: #### L [id number] ####[facility] ([facility])[address] [place] [address] 30on 06-28-2023 30 Normal [facility] 30 Normal [facility] ANTI-XA (HEPARIN LEVEL)on HEPARIN UNFRACTIONATED (U/ML) IN PPP BY CHROMOGENIC METHOD 0.25 IU/mL Low 0.3-0.7 [facility] Comment on above: Result Comment: [place] roxaban and Apixaban will interfere with the anti Xa assay used to monitor UFH and LMWH. Performed By: #### L [id number] ####[facility] ([facility])[address] [place] [address] HEPARIN UNFRACTIONATED (U/ML) IN PPP BY CHROMOGENIC METHOD 0.16 IU/mL Invalid Interpretation Code 0.3-0.7 [facility] Comment on above: Result Comment: [place] roxaban and Apixaban will interfere with the anti Xa assay used to monitor UFH and LMWH. Performed By: #### L [id number] ####[facility] ([facility])[address] [place] [address] HEPARIN UNFRACTIONATED (U/ML) IN PPP BY CHROMOGENIC METHOD <0.10 Invalid Interpretation Code 0.3-0.7 [facility] Comment on above: Order Comment: Check anti-Xa level every 6 hours while on heparin infusion, or per protocol. Result Comment: [place] roxaban and Apixaban will interfere with the anti Xa assay used to monitor UFH and LMWH. Performed By: #### L [id number] ####[facility] ([facility])[address] [place] [address] APTTon 06-28-2023 ACTIVATED PARTIAL THROMBOPLASTIN TIME IN PPP BY COAGULATION ASSAY 31.5 Seconds Normal 25.0-35.0 [facility] Comment on above: Order Comment: Basel ine aPTT before initiating heparin infusion. Result Comment: Clin ical significance of the APTT is questionable in the presence of heparin. Performed By: #### L [id number] ####[facility] ([facility] [place] [address] BASIC METABOLIC PANELon - Anion gap [Moles/Vol] 14 mmol/L Normal 7-20 [facility] Comment on above: Performed By: #### L [id number] ####[facility] ([facility]ER)[address] [place] [address] Calcium [Mass/Vol] 8.1 mg/dL Low 8.6-10.3 [facility] Comment on above: Performed By: #### L [id number] ####[facility] ([facility]ER)[address] [place] [address] Chloride [Moles/Vol] 95 mmol/L Low 98-107 [facility] Comment on above: Performed By: #### L [id number] ####[facility] ([facility]ER)[address] [place] [address] CO2 [Moles/Vol] 25 mmol/L Normal 21-31 [facility] Comment on above: Performed By: #### L [id number] ####[facility] ([facility])[address] [place] [address] Creatinine [Mass/Vol] 0.69 mg/dL Low 0.70-1.30 [facility] Comment on above: Performed By: #### L [id number] ####[facility] ([facility])[address] [place] [address] GLOMERULAR FILTRATION RATE ML/MIN/1.73 SQ M.PREDICTED 112.7 mL/min/1.73m*2 Normal >60.0 [facility] Comment on above: Result Comment: [facility]???s estimated glomerular filtration rate (eGFR) will [...] of individuals. Performed By: #### L [id number] ####[facility] ([facility]ER)[address] [place] [address] Glucose [Mass/Vol] 103 mg/dL High 70-100 [facility] Comment on above: Performed By: #### L [id number] ####[facility] ([facility] [place] [address] Potassium [Moles/Vol] 3.9 mmol/L Normal 3.5-5.1 [facility] Comment on above: Performed By: #### L [id number] ####[facility] ([facility] [place] [address] Sodium [Moles/Vol] 130 mmol/L Low 136-145 [facility] Comment on above: Performed By: #### L [id number] ####[facility] ([facility])[address] [place] [address] Urea nitrogen [Mass/Vol] 10 mg/dL Normal 7-25 [facility] Comment on above: Performed By: #### L [id number] ####[facility] ([facility])[address] [place] [address] UREA NITROGEN/CREATININE (MASS RATIO) IN SER/PLAS 14.5 Normal [facility] Comment on above: Performed By: #### L [id number] ####[facility] ([facility] [place] [address] Anion gap [Moles/Vol] 8 mmol/L Normal 7-20 [facility] Comment on above: Performed By: #### L [id number] ####[facility] ([facility])[address] [place] [address] Calcium [Mass/Vol] 8.1 mg/dL Low 8.6-10.3 [facility] Comment on above: Performed By: #### L [id number] ####[facility] ([facility]AKER)[address] [place] [address] Chloride [Moles/Vol] 98 mmol/L Normal 98-107 [facility] Comment on above: Performed By: #### L [id number] ####[facility] ([facility] [place] [address] CO2 [Moles/Vol] 29 mmol/L Normal 21-31 [facility] Comment on above: Performed By: #### L [id number] ####[facility] ([facility])[address] [place] [address] Creatinine [Mass/Vol] 0.73 mg/dL Normal 0.70-1.30 [facility] Comment on above: Performed By: #### L [id number] ####[facility] ([facility])[address] [place] [address] GLOMERULAR FILTRATION RATE ML/MIN/1.73 SQ M.PREDICTED 110.8 mL/min/1.73m*2 Normal >60.0 [facility] Comment on above: Result Comment: [facility]???s estimated glomerular filtration rate (eGFR) will [...] of individuals. Performed By: #### L [id number] ####[facility] ([facility])[address] [place] [address] Glucose [Mass/Vol] 118 mg/dL High 70-100 [facility] Comment on above: Performed By: #### L [id number] ####[facility] ([facility])[address] [place] [address] Potassium [Moles/Vol] 3.8 mmol/L Normal 3.5-5.1 [facility] Comment on above: Performed By: #### L [id number] ####[facility] ([facility])[address] [place] [address] Sodium [Moles/Vol] 131 mmol/L Low 136-145 [facility] Comment on above: Performed By: #### L [id number] ####[facility] (BE[facility])[address] [place] [address] Urea nitrogen [Mass/Vol] 10 mg/dL Normal 7-25 [facility] Comment on above: Performed By: #### L [id number] ####[facility] ([facility])[address] [place] [address] UREA NITROGEN/CREATININE (MASS RATIO) IN SER/PLAS 13.7 Normal [facility] Comment on above: Performed By: #### L [id number] ####[facility] ([facility])[address] [place] [address] CBCon 06-28-2023 Erythrocyte distribution width (RBC) [Ratio] 15.6 % High 11.5-15.0 [facility] Comment on above: Performed By: #### L [id number] ####[facility] ([facility])[address] [place] [address] ERYTHROCYTE MEAN CORPUSCULAR HEMOGLOBIN CONCENTRATION (G/DL) BY AUTOMATED 33.8 g/dL Normal 32.0-35.0 [facility] Comment on above: Performed By: #### L [id number] ####[facility] ([facility])[address] [place] [address] Hematocrit (Bld) [Volume fraction] 20.4 % Low 39.0-55.0 [facility] Comment on above: Performed By: #### L [id number] ####[facility] ([facility] [place] [address] Hemoglobin (Bld) [Mass/Vol] 6.9 g/dL Low 13.0-17.0 [facility] Comment on above: Performed By: #### L [id number] ####[facility] ([facility] [place] [address] IMMATURE PLATELET FRACTION % 5.6 % Normal 0.8-6.3 [facility] Comment on above: Performed By: #### L [id number] ####[facility] (BEAKER)[address] [place] [address] MCH (RBC) [Entitic mass] 29.5 pg Normal 27.0-33.0 [facility] Comment on above: Performed By: #### L [id number] ####[facility] ([facility])[address] [place] [address] MCV (RBC) [Entitic vol] 87.2 fL Normal 82.0-98.0 [facility] Comment on above: Performed By: #### L [id number] ####[facility] ([facility])[address] [place] [address] PLATELETS (10*3/UL) IN BLOOD AUTOMATED COUNT 127 10*3/uL Low 150-400 [facility] Comment on above: Performed By: #### L [id number] ####[facility] ([facility])[address] [place] [address] RBC (Bld) [#/Vol] 2.34 10*6/uL Low 4.20-5.70 [facility] Comment on above: Performed By: #### L [id number] ####[facility] ([facility])[address] [place] [address] WBC (Bld) [#/Vol] 6.57 10*3/uL Normal 4.00-10.60 [facility] Comment on above: Performed By: #### L [id number] ####[facility] ([facility])[address] [place] [address] CKon 06-28-2023 CREATINE KINASE (U/L) IN SER/PLAS 560.0 U/L High 30.0-223.0 [facility] Comment on above: Performed By: #### L [id number] ####[facility] ([facility])[address] [place] [address] CONSULTon 06-28-2023 CONSULT Normal [facility] MAGNESIUMon 06-28-2023 Magnesium [Mass/Vol] 1.9 mg/dL Normal 1.9-2.7 [facility] Comment on above: Performed By: #### L [id number] ####[facility] ([facility])[address] [place] [address] PLATELET COUNTon 06-28-2023 IMMATURE PLATELET FRACTION % 6.1 % Normal 0.8-6.3 [facility] Comment on above: Performed By: #### L [id number] ####[facility] ([facility])[address] [place] [address] PLATELETS (10*3/UL) IN BLOOD AUTOMATED COUNT 126 10*3/uL Low 150-400 [facility] Comment on above: Performed By: #### L [id number] ####[facility] ([facility])[address] [place] [address] POCT GLUCOSE METER UNSOLICIT ED RESULTSon 06-28-2023 Glucose [Mass/Vol] 95 mg/dL Normal 70-105 [facility] Comment on above: Order Comment: Waive d Testing in the ED is performed under the ED CLIA certificate #[id number]. Result Comment: paula parmar Performed By: #### L [id number] ####[facility] ([facility])[address] [place] [address] Glucose [Mass/Vol] 118 mg/dL High 70-105 [facility] Comment on above: Order Comment: Waive d Testing in the ED is performed under the ED CLIA certificate #[id number]. Result Comment: newuz gabo Performed By: #### L [id number] ####[facility] LAB ([facility])[address] [place] [address] Glucose [Mass/Vol] 111 mg/dL High 70-105 [facility] Comment on above: Order Comment: Waive d Testing in the ED is performed under the ED CLIA certificate #[id number]. Result Comment: cgil lso Performed By: #### L [id number] ####[facility] ([facility])[address] [place] [address] Glucose [Mass/Vol] 160 mg/dL High 70-105 [facility] Comment on above: Order Comment: Waive d Testing in the ED is performed under the ED CLIA certificate #[id number]. Result Comment: lui [email or web address] Performed By: #### L [id number] ####[facility] LAB (BEAKER)[address] [place] [address] PROTIME-INRon 06-28-2023 INR IN PPP BY COAGULATION ASSAY 1.16 High 0.90-1.10 [facility] Comment on above: Result Comment: ACCC [...] CHEST 1995;108:231S-246S. Performed By: #### L [id number] ####[facility] (BEAKER)[address] [place] [address] PROTHROMBIN TIME (PT) IN PPP BY COAGULATION ASSAY 14.8 Seconds Normal 12.3-14.8 [facility] Comment on above: Performed By: #### L [id number] ####[facility] (BEAKER)[address] [place] [address] 30on 06-27-2023 30 Normal [facility] 30 Normal [facility] APTTon 06-27-2023 ACTIVATED PARTIAL THROMBOPLASTIN TIME IN PPP BY COAGULATION ASSAY 35.5 Seconds High 25.0-35.0 [facility] Comment on above: Result Comment: Clin ical significance of the APTT is questionable in the presence of heparin. Performed By: #### L [id number] ####[facility] ([facility])[address] [place] [address] BASIC METABOLIC PANELon 03-2 Anion gap [Moles/Vol] 9 mmol/L Normal 7-20 [facility] Comment on above: Performed By: #### L [id number] ####[facility] (BE[facility])[address] [place] [address] Calcium [Mass/Vol] 8.3 mg/dL Low 8.6-10.3 [facility] Comment on above: Performed By: #### L [id number] ####[facility] (BE[facility]ER)[address] [place] [address] Chloride [Moles/Vol] 104 mmol/L Normal 98-107 [facility] Comment on above: Performed By: #### L [id number] ####[facility] [place] [address] CO2 [Moles/Vol] 26 mmol/L Normal 21-31 [facility] Comment on above: Performed By: #### L [id number] ####[facility] (BEAKER)[address] [place] [address] Creatinine [Mass/Vol] 0.78 mg/dL Normal 0.70-1.30 [facility] Comment on above: Performed By: #### L [id number] ####[facility] ([facility] [place] [address] GLOMERULAR FILTRATION RATE ML/MIN/1.73 SQ M.PREDICTED 108.6 mL/min/1.73m*2 Normal >60.0 [facility] Comment on above: Result Comment: The [facility]???s estimated glomerular filtration rate (eGFR) will [...] of individuals. Performed By: #### L [id number] ####[facility] ([facility])[address] [place] [address] Glucose [Mass/Vol] 117 mg/dL High 70-100 [facility] Comment on above: Performed By: #### L [id number] ####[facility] ([facility])[address] [place] [address] Potassium [Moles/Vol] 4.9 mmol/L Normal 3.5-5.1 [facility] Comment on above: Performed By: #### L [id number] ####[facility] ([facility])[address] [place] [address] Sodium [Moles/Vol] 134 mmol/L Low 136-145 [facility] Comment on above: Performed By: #### L [id number] ####[facility] ([facility])[address] [place] [address] Urea nitrogen [Mass/Vol] 10 mg/dL Normal 7-25 [facility] Comment on above: Performed By: #### L [id number] ####[facility] ([facility])[address] [place] [address] UREA NITROGEN/CREATININE (MASS RATIO) IN SER/PLAS 12.8 Normal [facility] Comment on above: Performed By: #### L [id number] ####[facility] ([facility])[address] [place] [address] CBCon 06-27-2023 Erythrocyte distribution width (RBC) [Ratio] 15.9 % High 11.5-15.0 [facility] Comment on above: Performed By: #### L [id number] ####[facility] ([facility])[address] [place] [address] ERYTHROCYTE MEAN CORPUSCULAR HEMOGLOBIN CONCENTRATION (G/DL) BY AUTOMATED 34.4 g/dL Normal 32.0-35.0 [facility] Comment on above: Performed By: #### L [id number] ####[facility] (BEAKER)[address] [place] [address] Hematocrit (Bld) [Volume fraction] 21.8 % Low 39.0-55.0 [facility] Comment on above: Performed By: #### L [id number] ####[facility] (BEAKER)[address] [place] [address] Hemoglobin (Bld) [Mass/Vol] 7.5 g/dL Low 13.0-17.0 [facility] Comment on above: Performed By: #### L [id number] ####[facility] (BEAKER)[address] [place] [address] IMMATURE PLATELET FRACTION % 4.8 % Normal 0.8-6.3 [facility] Comment on above: Performed By: #### L [id number] ####[facility] (BEAKER)[address] [place] [address] MCH (RBC) [Entitic mass] 30.2 pg Normal 27.0-33.0 [facility] Comment on above: Performed By: #### L [id number] ####[facility] (BEAKER)[address] [place] [address] MCV (RBC) [Entitic vol] 87.9 fL Normal 82.0-98.0 [facility] Comment on above: Performed By: #### L [id number] ####[facility] (BEAKER)[address] [place] [address] PLATELETS (10*3/UL) IN BLOOD AUTOMATED COUNT 116 10*3/uL Low 150-400 [facility] Comment on above: Performed By: #### L [id number] ####[facility] (BE[facility]ER)[address] [place] [address] RBC (Bld) [#/Vol] 2.48 10*6/uL Low 4.20-5.70 [facility] Comment on above: Performed By: #### L [id number] ####[facility] (BEAKER)[address] [place] [address] WBC (Bld) [#/Vol] 5.34 10*3/uL Normal 4.00-10.60 [facility] Comment on above: Performed By: #### L [id number] ####[facility] ([facility])[address] [place] [address] CONSULTon 06-27-2023 CONSULT Normal [facility] MAGNESIUMon 06-27-2023 Magnesium [Mass/Vol] 2.0 mg/dL Normal 1.9-2.7 [facility] Comment on above: Performed By: #### L [id number] ####[facility] ([facility])[address] [place], [place] [address] PHOSPHORUSon 06-27-2023 Magnesium [Mass/Vol] 4.2 mg/dL Normal 2.5-5.0 [facility] Comment on above: Performed By: #### L [id number] ####[facility] ([facility])[address] [place] [address] POCT GLUCOSE METER UNSOLICIT ED RESULTSon 06-27-2023 Glucose [Mass/Vol] 154 mg/dL High 70-105 [facility] Comment on above: Order Comment: Waive d Testing in the ED is performed under the ED CLIA certificate #[id number]. Result Comment: mer jha Performed By: #### L [id number] ####[facility] ([facility])[address] [place] [address] Glucose [Mass/Vol] 114 mg/dL High 70-105 [facility] Comment on above: Order Comment: Waive d Testing in the ED is performed under the ED CLIA certificate #[id number]. Result Comment: mer jha Performed By: #### L [id number] ####[facility] ([facility])[address] [place] [address] Glucose [Mass/Vol] 108 mg/dL High 70-105 [facility] Comment on above: Order Comment: Waive d Testing in the ED is performed under the ED CLIA certificate #[id number]. Result Comment: mer jha Performed By: #### L [id number] ####[facility] ([facility]ER)[address] [place] [address] Glucose [Mass/Vol] 112 mg/dL High 70-105 [facility] Comment on above: Order Comment: Waive d Testing in the ED is performed under the ED CLIA certificate #[id number]. Result Comment: mmcc gabo Performed By: #### L [id number] ####[facility] ([facility])[address] [place] [address] Glucose [Mass/Vol] 111 mg/dL High 70-105 [facility] Comment on above: Order Comment: Waive d Testing in the ED is performed under the ED CLIA certificate #[id number]. Result Comment: mmcc gabo Performed By: #### L [id number] ####[facility] ([facility])[address] [place] [address] Glucose [Mass/Vol] 120 mg/dL High 70-105 [facility] Comment on above: Order Comment: Waive d Testing in the ED is performed under the ED CLIA certificate #[id number]. Result Comment: mmcc gabo Performed By: #### L [id number] ####[facility] ([facility])[address] [place] [address] Glucose [Mass/Vol] 128 mg/dL High 70-105 [facility] Comment on above: Order Comment: Waive d Testing in the ED is performed under the ED CLIA certificate #[id number]. Result Comment: mmcc gabo Performed By: #### L [id number] ####[facility] ([facility])[address] [place] [address] PROTIME-INRon 06-27-2023 INR IN PPP BY COAGULATION ASSAY 1.30 High 0.90-1.10 [facility] Comment on above: Order Comment: On [...] CHEST 1995;108:231S-246S. Performed By: #### L [id number] ####[facility] [employer])[address] [place] [address] PROTHROMBIN TIME (PT) IN PPP BY COAGULATION ASSAY 16.3 Seconds High 12.3-14.8 [facility] Comment on above: Order Comment: On ar rival to SICU Performed By: #### L [id number] ####[facility] LAB (Hired)[address] [place] [facility] [address] 30on 06-26-2023 30 Normal [facility] 30 Normal [facility] 30 Normal [facility] ANESon 06-26-2023 ANES Normal [facility] APTTon 06-26-2023 ACTIVATED PARTIAL THROMBOPLASTIN TIME IN PPP BY COAGULATION ASSAY 30.1 Seconds Normal 25.0-35.0 [facility] Comment on above: Result Comment: Clin ical significance of the APTT is questionable in the presence of heparin. Performed By: #### L [id number] ####[facility] [employer])[address] [facility] [address] ACTIVATED PARTIAL THROMBOPLASTIN TIME IN PPP BY COAGULATION ASSAY 29.1 Seconds Normal 25.0-35.0 [facility] Comment on above: Order Comment: Pre-o p diagnosis:Aortic valve disorder [I35.9] Result Comment: Clin ical significance of the APTT is questionable in the presence of heparin. Performed By: #### L [id number] ####[facility] (BEAKER)[address] [place] [address] ACTIVATED PARTIAL THROMBOPLASTIN TIME IN PPP BY COAGULATION ASSAY 31.8 Seconds Normal 25.0-35.0 [facility] Comment on above: Result Comment: Clin ical significance of the APTT is questionable in the presence of heparin. Performed By: #### L [id number] ####[facility] (BEAKER)[address] [place] [facility] [address] ARTERIAL BLOOD GAS WITH IONI Phlebotek Phlebotomy SolutionsD CALCIUMon 06-26-2023 Base excess Calc (Bld) [Moles/Vol] -3.3000 mmol/L Low -2.0-3.0 [facility] Comment on above: Performed By: #### L [id number] ####[facility] [id number] [place] [address] [place] CALCIUM IONIZED (MMOL/L) IN BLOOD 1.09 mmol/L Low 1.15-1.33 [facility] Comment on above: Performed By: #### L [id number] ####[facility] [id number] [place] [address] [place] CO2 (Bld) [Partial pressure] 35 mm[Hg] Normal 35-48 [facility] Comment on above: Performed By: #### L [id number] ####[facility] [id number] [place] [address] [place] FIO2 40 % Normal [facility] Comment on above: Performed By: #### L [id number] ####[facility] [id number] [place] [address] [place] HCO3 (Bld) [Moles/Vol] 21.2 mmol/L Normal 21.0-28.0 [facility] Comment on above: Performed By: #### L [id number] ####[facility] [id number] [place] [address] [place] Oxygen (Bld) [Partial pressure] 118 mm[Hg] High 83-100 [facility] Comment on above: Performed By: #### L [id number] ####[facility] [id number] [place] [address] [facility] OXYGEN SATURATION (%) IN ARTERIAL BLOOD 98.8 % High 94.0-98.0 [facility] Comment on above: Performed By: #### L [id number] ####[facility] [id number] [facility] [address] [facility] PEEP 6 cmH2O Normal [facility] Comment on above: Performed By: #### L [id number] ####[facility] [id number] [place] [address] [facility] pH (Bld) 7.39 [pH] Normal 7.35-7.45 [facility] Comment on above: Performed By: #### L [id number] ####[facility] [id number] [place] [address] [facility] PRESSURE SUPPORT 12 Normal [facility] Comment on above: Performed By: #### L [id number] ####[facility] [id number] [place] [address] [facility] SOURCE OF OXYGEN Bi-PAP Normal [facility] Comment on above: Performed By: #### L [id number] ####[facility] [id number] [place] [address] [facility] Base excess Calc (Bld) [Moles/Vol] -5.8000 mmol/L Low -2.0-3.0 [facility] Comment on above: Performed By: #### L [id number] ####[facility] [id number] [place] [address] [facility] CALCIUM IONIZED (MMOL/L) IN BLOOD 1.19 mmol/L Normal 1.15-1.33 [facility] Comment on above: Performed By: #### L [id number] ####[facility] [id number] [place] [address] [facility] CO2 (Bld) [Partial pressure] 44 mm[Hg] Normal 35-48 [facility] Comment on above: Performed By: #### L [id number] ####[facility] [id number] [place] [address] [facility] FIO2 40 % Normal [facility] Comment on above: Performed By: #### L [id number] ####[facility] [id number] [place] [address] [facility] HCO3 (Bld) [Moles/Vol] 20.7 mmol/L Low 21.0-28.0 [facility] Comment on above: Performed By: #### L [id number] ####[facility] [id number] [place] [address] [facility] Oxygen (Bld) [Partial pressure] 102 mm[Hg] High 83-100 [facility] Comment on above: Performed By: #### L [id number] ####[facility] [id number] [place] [address] [facility] OXYGEN SATURATION (%) IN ARTERIAL BLOOD 99.5 % High 94.0-98.0 [facility] Comment on above: Performed By: #### L [id number] ####[facility] [id number] [place] [address] [facility] PEEP 6 cmH2O Normal [facility] Comment on above: Performed By: #### L [id number] ####[facility] [id number] [place] [address] [facility] pH (Bld) 7.28 [pH] Low 7.35-7.45 [facility] Comment on above: Performed By: #### L [id number] ####[facility] [id number] [place] [address] [facility] PRESSURE SUPPORT 12 Normal [facility] Comment on above: Performed By: #### L [id number] ####[facility] [id number] [place] [address] [facility] SOURCE OF OXYGEN Bi-PAP Normal [facility] Comment on above: Performed By: #### L [id number] ####[facility] [id number] [place] [address] [facility] BASIC METABOLIC PANELon 03-2 Anion gap [Moles/Vol] 10 mmol/L Normal 7-20 [facility] Comment on above: Performed By: #### L [id number] ####[facility] [place] [address] Calcium [Mass/Vol] 8.1 mg/dL Low 8.6-10.3 [facility] Comment on above: Performed By: #### L [id number] ####[facility] ([facility] [place] [address] Chloride [Moles/Vol] 108 mmol/L High 98-107 [facility] Comment on above: Performed By: #### L [id number] ####[facility] ([facility])[address] [place] [address] CO2 [Moles/Vol] 24 mmol/L Normal 21-31 [facility] Comment on above: Performed By: #### L [id number] ####[facility] ([facility])[address] [place] [address] Creatinine [Mass/Vol] 0.72 mg/dL Normal 0.70-1.30 [facility] Comment on above: Performed By: #### L [id number] ####[facility] ([facility])[address] [place] [address] GLOMERULAR FILTRATION RATE ML/MIN/1.73 SQ M.PREDICTED 111.3 mL/min/1.73m*2 Normal >60.0 [facility] Comment on above: Result Comment: [facility]???s estimated glomerular filtration rate (eGFR) will [...] of individuals. Performed By: #### L [id number] ####[facility] ([facility])[address] [place] [address] Glucose [Mass/Vol] 151 mg/dL High 70-100 [facility] Comment on above: Performed By: #### L [id number] ####[facility] ([facility])[address] [place] [address] Potassium [Moles/Vol] 4.1 mmol/L Normal 3.5-5.1 [facility] Comment on above: Performed By: #### L [id number] ####[facility] ([facility])[address] [place] [address] Sodium [Moles/Vol] 138 mmol/L Normal 136-145 [facility] Comment on above: Performed By: #### L [id number] ####[facility] ([facility])[address] [place] [address] Urea nitrogen [Mass/Vol] 11 mg/dL Normal 7-25 [facility] Comment on above: Performed By: #### L [id number] ####[facility] ([facility])[address] [place] [address] UREA NITROGEN/CREATININE (MASS RATIO) IN SER/PLAS 15.3 Normal [facility] Comment on above: Performed By: #### L [id number] ####[facility] ([facility])[address] [place] [address] Anion gap [Moles/Vol] 14 mmol/L Normal 7-20 [facility] Comment on above: Order Comment: Pre-o p diagnosis:Aortic valve disorder [I35.9] Performed By: #### L [id number] ####[facility] ([facility])[address] [place] [address] Calcium [Mass/Vol] 7.9 mg/dL Low 8.6-10.3 [facility] Comment on above: Order Comment: Pre-o p diagnosis:Aortic valve disorder [I35.9] Performed By: #### L [id number] ####[facility] ([facility])[address] [place] [address] Chloride [Moles/Vol] 107 mmol/L Normal 98-107 [facility] Comment on above: Order Comment: Pre-o p diagnosis:Aortic valve disorder [I35.9] Performed By: #### L [id number] ####[facility] ([facility])[address] [place] [address] CO2 [Moles/Vol] 21 mmol/L Normal 21-31 [facility] Comment on above: Order Comment: Pre-o p diagnosis:Aortic valve disorder [I35.9] Performed By: #### L [id number] ####[facility] ([facility])[address] [place] [address] Creatinine [Mass/Vol] 0.76 mg/dL Normal 0.70-1.30 [facility] Comment on above: Order Comment: Pre-o p diagnosis:Aortic valve disorder [I35.9] Performed By: #### L [id number] ####[facility] ([facility])[address] [place] [address] GLOMERULAR FILTRATION RATE ML/MIN/1.73 SQ M.PREDICTED 109.5 mL/min/1.73m*2 Normal >60.0 [facility] Comment on above: Order Comment: Pre-o p diagnosis:Aortic valve disorder [I35.9] Result Comment: [facility]???s estimated glomerular filtration rate (eGFR) will [...] of individuals. Performed By: #### L [id number] ####[facility] ([facility])[address] [place] [address] Glucose [Mass/Vol] 194 mg/dL High 70-100 [facility] Comment on above: Order Comment: Pre-o p diagnosis:Aortic valve disorder [I35.9] Performed By: #### L [id number] ####[facility] [place] [address] Potassium [Moles/Vol] 3.9 mmol/L Normal 3.5-5.1 [facility] Comment on above: Order Comment: Pre-o p diagnosis:Aortic valve disorder [I35.9] Performed By: #### L [id number] ####[facility] ([facility])[address] [place] [address] Sodium [Moles/Vol] 138 mmol/L Normal 136-145 [facility] Comment on above: Order Comment: Pre-o p diagnosis:Aortic valve disorder [I35.9] Performed By: #### L [id number] ####[facility] ([facility])[address] [place] [address] Urea nitrogen [Mass/Vol] 11 mg/dL Normal 7-25 [facility] Comment on above: Order Comment: Pre-o p diagnosis:Aortic valve disorder [I35.9] Performed By: #### L [id number] ####[facility] ([facility])[address] [place] [address] UREA NITROGEN/CREATININE (MASS RATIO) IN SER/PLAS 14.5 Normal [facility] Comment on above: Order Comment: Pre-o p diagnosis:Aortic valve disorder [I35.9] Performed By: #### L [id number] ####[facility] ([facility])[address] [place] [address] CBCon 06-26-2023 Erythrocyte distribution width (RBC) [Ratio] 15.5 % High 11.5-15.0 [facility] Comment on above: Performed By: #### L [id number] ####[facility] ([facility])[address] [place] [address] ERYTHROCYTE MEAN CORPUSCULAR HEMOGLOBIN CONCENTRATION (G/DL) BY AUTOMATED 34.0 g/dL Normal 32.0-35.0 [facility] Comment on above: Performed By: #### L [id number] ####[facility] ([facility])[address] [place] [address] Hematocrit (Bld) [Volume fraction] 29.4 % Low 39.0-55.0 [facility] Comment on above: Performed By: #### L [id number] ####[facility] (BEAKER)[address] [place] [address] Hemoglobin (Bld) [Mass/Vol] 10.0 g/dL Low 13.0-17.0 [facility] Comment on above: Performed By: #### L [id number] ####[facility] (BEAKER)[address] [place] [address] IMMATURE PLATELET FRACTION % 3.8 % Normal 0.8-6.3 [facility] Comment on above: Performed By: #### L [id number] ####[facility] (BEAKER)[address] [place] [address] MCH (RBC) [Entitic mass] 29.6 pg Normal 27.0-33.0 [facility] Comment on above: Performed By: #### L [id number] ####[facility] [place] [address] MCV (RBC) [Entitic vol] 87.0 fL Normal 82.0-98.0 [facility] Comment on above: Performed By: #### L [id number] ####[facility] (BEAKER)[address] [place] [address] PLATELETS (10*3/UL) IN BLOOD AUTOMATED COUNT 108 10*3/uL Low 150-400 [facility] Comment on above: Performed By: #### L [id number] ####[facility] (BEAKER)[address] [place] [address] RBC (Bld) [#/Vol] 3.38 10*6/uL Low 4.20-5.70 [facility] Comment on above: Performed By: #### L [id number] ####[facility] (BEAKER)[address] [place] [address] WBC (Bld) [#/Vol] 6.87 10*3/uL Normal 4.00-10.60 [facility] Comment on above: Performed By: #### L [id number] ####[facility] ([facility] [place] [address] Erythrocyte distribution width (RBC) [Ratio] 15.3 % High 11.5-15.0 [facility] Comment on above: Order Comment: Pre-o p diagnosis:Aortic valve disorder [I35.9] Performed By: #### L [id number] ####[facility] ([facility])[address] [place] [address] ERYTHROCYTE MEAN CORPUSCULAR HEMOGLOBIN CONCENTRATION (G/DL) BY AUTOMATED 34.5 g/dL Normal 32.0-35.0 [facility] Comment on above: Order Comment: Pre-o p diagnosis:Aortic valve disorder [I35.9] Performed By: #### L [id number] ####[facility] ([facility])[address] [place] [address] Hematocrit (Bld) [Volume fraction] 29.3 % Low 39.0-55.0 [facility] Comment on above: Order Comment: Pre-o p diagnosis:Aortic valve disorder [I35.9] Performed By: #### L [id number] ####[facility] ([facility])[address] [place] [address] Hemoglobin (Bld) [Mass/Vol] 10.1 g/dL Low 13.0-17.0 [facility] [facility] Comment on above: Order Comment: Pre-o p diagnosis:Aortic valve disorder [I35.9] Performed By: #### L [id number] ####[facility] ([facility])[address] [place] [address] IMMATURE PLATELET FRACTION % 4.1 % Normal 0.8-6.3 [facility] Comment on above: Order Comment: Pre-o p diagnosis:Aortic valve disorder [I35.9] Performed By: #### L [id number] ####[facility] ([facility])[address] [place] [address] MCH (RBC) [Entitic mass] 29.9 pg Normal 27.0-33.0 [facility] Comment on above: Order Comment: Pre-o p diagnosis:Aortic valve disorder [I35.9] Performed By: #### L [id number] ####[facility] ([facility])[address] [place] [address] MCV (RBC) [Entitic vol] 86.7 fL Normal 82.0-98.0 [facility] Comment on above: Order Comment: Pre-o p diagnosis:Aortic valve disorder [I35.9] Performed By: #### L [id number] ####[facility] ([facility])[address] [place] [address] PLATELETS (10*3/UL) IN BLOOD AUTOMATED COUNT 135 10*3/uL Low 150-400 [facility] Comment on above: Order Comment: Pre-o p diagnosis:Aortic valve disorder [I35.9] Performed By: #### L [id number] ####[facility] ([facility])[address] [place] [address] RBC (Bld) [#/Vol] 3.38 10*6/uL Low 4.20-5.70 [facility] Comment on above: Order Comment: Pre-o p diagnosis:Aortic valve disorder [I35.9] Performed By: #### L [id number] ####[facility] ([facility])[address] [place] [address] WBC (Bld) [#/Vol] 9.24 10*3/uL Normal 4.00-10.60 [facility] Comment on above: Order Comment: Pre-o p diagnosis:Aortic valve disorder [I35.9] Performed By: #### L [id number] ####[facility] ([facility])[address] [place] [address] CBC WITH AUTO DIFFERENTIALon 06-26-2023 Basophils (Bld) [#/Vol] 0.04 10*3/uL Normal 0.00-0.20 [facility] Comment on above: Performed By: #### L [id number] ####[facility] ([facility])[address] [place] [address] Basophils/100 WBC (Bld) 0.8 % Normal 0.0-1.0 [facility] Comment on above: Performed By: #### L [id number] ####[facility] ([facility])[address] [place] [address] Eosinophils (Bld) [#/Vol] 0.28 10*3/uL Normal 0.00-0.50 [facility] Comment on above: Performed By: #### L [id number] ####[facility] ([facility])[address] [place] [address] Eosinophils/100 WBC (Bld) 5.9 % Normal 0.0-6.0 [facility] Comment on above: Performed By: #### L [id number] ####[facility] ([facility])[address] [place] [address] Erythrocyte distribution width (RBC) [Ratio] 15.9 % High 11.5-15.0 [facility] Comment on above: Performed By: #### L [id number] ####[facility] ([facility])[address] [place] [address] ERYTHROCYTE MEAN CORPUSCULAR HEMOGLOBIN CONCENTRATION (G/DL) BY AUTOMATED 33.7 g/dL Normal 32.0-35.0 [facility] Comment on above: Performed By: #### L [id number] ####[facility] ([facility])[address] [place] [address] Hematocrit (Bld) [Volume fraction] 32.6 % Low 39.0-55.0 [facility] Comment on above: Performed By: #### L [id number] ####[facility] ([facility])[address] [place] [address] Hemoglobin (Bld) [Mass/Vol] 11.0 g/dL Low 13.0-17.0 [facility] Comment on above: Performed By: #### L [id number] ####[facility] ([facility])[address] [place] [address] Immature granulocytes (Bld) [#/Vol] 0.01 10*3/uL Normal 0.00-0.20 [facility] Comment on above: Performed By: #### L [id number] ####[facility] ([facility])[address] [facility] [place] [address] Immature granulocytes/100 WBC (Bld) 0.2 % Normal 0.0-1.0 [facility] Comment on above: Performed By: #### L [id number] ####[facility] ([facility])[address] [place] [address] Lymphocytes (Bld) [#/Vol] 0.86 10*3/uL Low 1.20-4.00 [facility] Comment on above: Performed By: #### L [id number] ####[facility] ([facility])[address] [place] [address] Lymphocytes/100 WBC (Bld) 18.3 % Low 20.0-45.0 [facility] Comment on above: Performed By: #### L [id number] ####[facility] ([facility])[address] [place] [address] MCH (RBC) [Entitic mass] 29.4 pg Normal 27.0-33.0 [facility] Comment on above: Performed By: #### L [id number] ####[facility] ([facility])[address] [facility] [place] [address] MCV (RBC) [Entitic vol] 87.2 fL Normal 82.0-98.0 [facility] Comment on above: Performed By: #### L [id number] ####[facility] ([facility])[address] [facility] [place] [address] Monocytes (Bld) [#/Vol] 0.50 10*3/uL Normal 0.10-1.00 [facility] Comment on above: Performed By: #### L [id number] ####[facility] ([facility])[address] [facility] [place] [address] Monocytes/100 WBC (Bld) 10.6 % Normal 5.0-12.0 [facility] Comment on above: Performed By: #### L [id number] ####[facility] ([facility])[address] [place] [address] Neutrophils (Bld) [#/Vol] 3.02 10*3/uL Normal 1.60-7.60 [facility] Comment on above: Performed By: #### L [id number] ####[facility] ([facility])[address] [place] [address] Neutrophils/100 WBC (Bld) 64.2 % Normal 40.0-72.0 [facility] Comment on above: Performed By: #### L [id number] ####[facility] ([facility])[address] [place] [address] NRBC (PER 100 WBCS) BY AUTOMATED COUNT 0.0 % Normal 0 [facility] Comment on above: Performed By: #### L [id number] ####[facility] ([facility])[address] [place] [address] PLATELETS (10*3/UL) IN BLOOD AUTOMATED COUNT 159 10*3/uL Normal 150-400 [facility] Comment on above: Performed By: #### L [id number] ####[facility] ([facility])[address] [place] [address] RBC (Bld) [#/Vol] 3.74 10*6/uL Low 4.20-5.70 [facility] Comment on above: Performed By: #### L [id number] ####[facility] ([facility])[address] [place], [place] [address] WBC (Bld) [#/Vol] 4.71 10*3/uL Normal 4.00-10.60 [facility] Comment on above: Performed By: #### L [id number] ####[facility] ([facility])[address] [place] [address] CO-OXIMETRYon 06-26-2023 CARBOXYHEMOGLOBIN/HE MOGLOBIN TOTAL % IN BLOOD 2.3 % Normal [facility] Comment on above: Performed By: #### L [id number] ####[facility] [id number] [place] [address] [place] Hemoglobin (Bld) [Mass/Vol] 9.5 g/dL Normal [facility] Comment on above: Performed By: #### L [id number] ####[facility] [id number] [place] [address] [place] METHEMOGLOBIN/100 IN BLOOD 0.5 % Normal 0.0-1.5 [facility] Comment on above: Performed By: #### L [id number] ####[facility] [id number] [place] [address] [place] Oxygen saturation in Blood 61.9 % Normal [facility] Comment on above: Performed By: #### L [id number] ####[facility] [id number] [place] [address] [place] OXYGENATED HEMOGLOBIN IN BLOOD 60.2 % Normal [facility] Comment on above: Performed By: #### L [id number] ####[facility] [id number] [place] [address] [place] COMPREHENSIVE METABOLIC PANE Braulio 06-26-2023 Albumin [Mass/Vol] 4.1 g/dL Normal 3.5-5.7 [facility] Comment on above: Performed By: #### L [id number] ####[facility] ([facility])[address] [place] [address] ALP [Catalytic activity/Vol] 51 U/L Normal 34-104 [facility] Comment on above: Performed By: #### L [id number] ####[facility] ([facility])[address] [place] [address] ALT [Catalytic activity/Vol] 13 U/L Normal 7-52 [facility] Comment on above: Performed By: #### L [id number] ####[facility] ([facility])[address] [place] [address] Anion gap [Moles/Vol] 10 mmol/L Normal 7-20 [facility] Comment on above: Performed By: #### L [id number] ####[facility] ([facility])[address] [place] [address] AST [Catalytic activity/Vol] 12 U/L Low 13-39 [facility] Comment on above: Performed By: #### L [id number] ####[facility] ([facility])[address] [place] [address] Bilirubin [Mass/Vol] 0.9 mg/dL Normal 0.3-1.0 [facility] Comment on above: Performed By: #### L [id number] ####[facility] ([facility])[address] [place] [address] Calcium [Mass/Vol] 8.6 mg/dL Normal 8.6-10.3 [facility] Comment on above: Performed By: #### L [id number] ####[facility] ([facility])[address] [place] [address] Chloride [Moles/Vol] 104 mmol/L Normal 98-107 [facility] Comment on above: Performed By: #### L [id number] ####[facility] ([facility])[address] [place] [address] CO2 [Moles/Vol] 26 mmol/L Normal 21-31 [facility] Comment on above: Performed By: #### L [id number] ####[facility] ([facility])[address] [place] [address] Creatinine [Mass/Vol] 0.82 mg/dL Normal 0.70-1.30 [facility] Comment on above: Performed By: #### L [id number] ####[facility] ([facility])[address] [place] [address] GLOMERULAR FILTRATION RATE ML/MIN/1.73 SQ M.PREDICTED 107.0 mL/min/1.73m*2 Normal >60.0 [facility] Comment on above: Result Comment: The [facility]???s estimated glomerular filtration rate (eGFR) will [...] of individuals. Performed By: #### L [id number] ####[facility] ([facility])[address] [place] [address] Glucose [Mass/Vol] 97 mg/dL Normal 70-100 [facility] Comment on above: Performed By: #### L [id number] ####[facility] ([facility])[address] [place] [address] Potassium [Moles/Vol] 4.0 mmol/L Normal 3.5-5.1 [facility] Comment on above: Performed By: #### L [id number] ####[facility] ([facility])[address] [place] [address] Protein [Mass/Vol] 6.0 g/dL Normal 6.0-8.3 [facility] Comment on above: Performed By: #### L [id number] ####[facility] ([facility])[address] [place] [address] Sodium [Moles/Vol] 136 mmol/L Normal 136-145 [facility] Comment on above: Performed By: #### L [id number] ####[facility] ([facility])[address] [place] [address] Urea nitrogen [Mass/Vol] 12 mg/dL Normal 7-25 [facility] Comment on above: Performed By: #### L [id number] ####[facility] ([facility])[address] [place] [address] UREA NITROGEN/CREATININE (MASS RATIO) IN SER/PLAS 14.6 Normal [facility] Comment on above: Performed By: #### L [id number] ####[facility] ([facility])[address] [place] [address] CONSULTon 06-26-2023 CONSULT Normal [facility] DEVICE CULTUREon 06-26-2023 Bacteria identified Cx Nom (Unsp spec) No growth at 3 days Normal [facility] Comment on above: Order Comment: RIGHT ARM PICC LINE CULTURE Performed By: #### D EVICE CULTURE ####[facility] ([facility])[address] [facility] [address] FIBRINOGENon 06-26-2023 Magnesium [Mass/Vol] 402 mg/dL Normal 150-425 [facility] Comment on above: Order Comment: Pre-o p diagnosis:Aortic valve disorder [I35.9] Performed By: #### L [id number] ####[facility] [place] [place] [address] HISTOLOGY - TISSUE EXAMon LAB AP CASE REPORT Normal [facility] Comment on above: Order Comment: Pre-o p diagnosis:Aortic valve disorder [I35.9] Result Comment: Surg ical Pathology Case: [id number] Provider: Paul George MD Collected: 06/26/2023 1153Ordering Location: [facility] Main Operating Room Received: 06/26/2023 1354Pathologist: LILIA Prakashpecimen: Other, AORTIC VALVE LEAFLET FOR HISTOLOGY Performed By: #### L [id number] ####[facility] ([facility]ER)[address] [place] [address] LAB AP CLINICAL INFORMATION Normal [facility] Comment on above: Order Comment: Pre-o p diagnosis:Aortic valve disorder [I35.9] Result Comment: Post -Op [id number] - Aortic valve disorder [ICD-10-CM] Performed By: #### L [id number] ####[facility] ([facility])[address] [place] [address] LAB AP GROSS DESCRIPTION A. Other. Normal [facility] Comment on above: [...] identified. The specimen is serially sectioned and business process representative sections are submitted in 1 cassette.Nai Sheth, Pathologists' Drawing Operator Jaspreet Chawla, Pathologists' Drawing Operator Performed By: #### L [id number] ####[facility] ([facility])[address] [place] [address] LAB AP MICROSCOPIC DESCRIPTION Microscopic examination performed. [facility] Comment on above: Order Comment: Pre-o p diagnosis:Aortic valve disorder [I35.9] Performed By: #### L [id number] ####[facility] ([facility])[address] [place] [address] LAB AP REPORT FINAL DIAGNOSIS NARRATIVE [facility] Comment on above: Order Comment: Pre-o p diagnosis:Aortic valve disorder [I35.9] Result Comment: A. A ortic valve leaflet, removal:- Valvular tissue with fibrinoid necrosis and acute inflammation. Performed By: #### L [id number] ####[facility] ([facility])[address] [place] [address] LACTIC ACID WITH 4 HOUR REFL EXon 06-26-2023 LACTATE (MMOL/L) IN SER/PLAS 1.5 mmol/L Normal 0.5-2.2 [facility] Comment on above: Order Comment: Pre-o p diagnosis:Aortic valve disorder [I35.9] Performed By: #### L [id number] ####[facility] ([facility])[address] [place] [address] LACTATE (MMOL/L) IN SER/PLAS 3.1 mmol/L Critically high 0.5-2.2 [facility] Comment on above: Order Comment: Pre-o p diagnosis:Aortic valve disorder [I35.9] Performed By: #### L [id number] ####[facility] ([facility])[address] [place] [address] LACTIC ACID, PLASMAon 2023 LACTATE (MMOL/L) IN SER/PLAS 2.4 mmol/L High 0.5-2.2 [facility] Comment on above: Performed By: #### L [id number] ####[facility] ([facility])[address] [place] [address] MAGNESIUMon 06-26-2023 Magnesium [Mass/Vol] 2.4 mg/dL Normal 1.9-2.7 [facility] Comment on above: Performed By: #### L [id number] ####[facility] ([facility])[address] [place] [address] Magnesium [Mass/Vol] 2.6 mg/dL Normal 1.9-2.7 [facility] Comment on above: Order Comment: Pre-o p diagnosis:Aortic valve disorder [I35.9] Performed By: #### L [id number] ####[facility] ([facility])[address] [place] [address] Magnesium [Mass/Vol] 2.0 mg/dL Normal 1.9-2.7 [facility] Comment on above: Performed By: #### L [id number] ####[facility] ([facility])[address] [place] [address] OPNOTEon 06-26-2023 OPNOTE Normal [facility] PHOSPHORUSon 06-26-2023 Magnesium [Mass/Vol] 3.9 mg/dL Normal 2.5-5.0 [facility] Comment on above: Performed By: #### L [id number] ####[facility] ([facility])[address] [place] [address] Magnesium [Mass/Vol] 4.2 mg/dL Normal 2.5-5.0 [facility] Comment on above: Performed By: #### L [id number] ####[facility] ([facility])[address] [place] [address] POCT ACTIVATED CLOTTING TIME UNSOLICITED RESULTSon 06-26-2023 POC ACTIVATED CLOTTING TIME 143 sec Normal 82-152 [facility] Comment on above: Performed By: #### L [id number] ####[facility] ([facility])[address] [place] [address] POC ACTIVATED CLOTTING TIME 148 sec Normal 82-152 [facility] Comment on above: Performed By: #### L [id number] ####[facility] ([facility])[address] [place] [address] POC ACTIVATED CLOTTING TIME 473 sec High 82-152 [facility] Comment on above: Performed By: #### L [id number] ####[facility] ([facility])[address] [place] [address] POC ACTIVATED CLOTTING TIME 562 sec High 82-152 [facility] Comment on above: Performed By: #### L [id number] ####[facility] ([facility])[address] [place] [address] POC ACTIVATED CLOTTING TIME 602 sec High 82-152 [facility] Comment on above: Performed By: #### L [id number] ####[facility] ([facility])[address] [place] [address] POC ACTIVATED CLOTTING TIME 679 sec High 82-152 [facility] Comment on above: Performed By: #### L [id number] ####[facility] ([facility])[address] [place] [address] POC ACTIVATED CLOTTING TIME 772 sec High 82-152 [facility] Comment on above: Performed By: #### L [id number] ####[facility] ([facility])[address] [place] [address] POC ACTIVATED CLOTTING TIME 772 sec High 82-152 [facility] Comment on above: Performed By: #### L [id number] ####[facility] ([facility])[address] [place] [address] POC ACTIVATED CLOTTING TIME 701 sec High 82-152 [facility] Comment on above: Performed By: #### L [id number] ####[facility] ([facility])[address] [facility] [place] [address] POC ACTIVATED CLOTTING TIME 154 sec High 82-152 [facility] Comment on above: Performed By: #### L [id number] ####[facility] ([facility])[address] [facility] [place] [address] POCT GLUCOSE METER UNSOLICIT ED RESULTSon 06-26-2023 Glucose [Mass/Vol] 132 mg/dL High 70-105 [facility] Comment on above: Order Comment: Waive d Testing in the ED is performed under the ED CLIA certificate #[id number]. Result Comment: mmcc gabo Performed By: #### L [id number] ####[facility] ([facility])[address] [facility] [address] Glucose [Mass/Vol] 126 mg/dL High 70-105 [facility] Comment on above: Order Comment: Waive d Testing in the ED is performed under the ED CLIA certificate #[id number]. Result Comment: mmcc gabo Performed By: #### L [id number] ####[facility] ([facility])[address] [facility] [address] Glucose [Mass/Vol] 135 mg/dL High 70-105 [facility] Comment on above: Order Comment: Waive d Testing in the ED is performed under the ED CLIA certificate #[id number]. Result Comment: pcar r Performed By: #### L [id number] ####[facility] ([facility])[address] [address] Glucose [Mass/Vol] 131 mg/dL High 70-105 [facility] Comment on above: Order Comment: Waive d Testing in the ED is performed under the ED CLIA certificate #[id number]. Result Comment: [email or web address] [email or web address] Performed By: #### L [id number] ####[facility] ([facility])[address] [place] [address] POCT PERFUSION PANEL UNSOLIC ITED RESULTSon 06-26-2023 CO2 [Moles/Vol] 22.0 mmol/L Normal 21.0-29.0 [facility] Comment on above: Performed By: #### L [id number] ####[facility] ([facility])[address] [place] [address] Glucose [Mass/Vol] 197 mg/dL High 70-105 [facility] Comment on above: Performed By: #### L [id number] ####[facility] (BEAKER)[address] [place] [address] HCO3 (Bld) [Moles/Vol] 20.8 mmol/L Low 23.0-28.0 [facility] Comment on above: Performed By: #### L [id number] ####[facility] ([facility])[address] [place] [address] Hematocrit (Bld) [Volume fraction] 30 % Low 38-51 [facility] Comment on above: Performed By: #### L [id number] ####[facility] (BE[facility])[address] [place] [address] Hemoglobin (Bld) [Mass/Vol] 10.2 g/dL Low 12.0-17.0 [facility] Comment on above: Performed By: #### L [id number] ####[facility] ([facility])[address] [place] [address] POCT BASE EXCESS -4.0 mmol/L Low -2.0-3.0 [facility] Comment on above: Performed By: #### L [id number] ####[facility] (BEAK[facility])[address] [place] [address] POCT IONIZED CALCIUM 1.17 mmol/L Normal 1.12-1.32 [facility] Comment on above: Performed By: #### L [id number] ####[facility] ([facility])[address] [place] [address] POCT PCO2 36.5 mmHg Low 41.0-51.0 [facility] Comment on above: Performed By: #### L [id number] ####[facility] ([facility])[address] [place] [address] POCT PH 7.36 Normal 7.31-7.41 [facility] Comment on above: Performed By: #### L [id number] ####[facility] ([facility])[address] [place] [address] POCT PO2 240 mmHg High 80-105 [facility] Comment on above: Performed By: #### L [id number] ####[facility] ([facility])[address] [place] [address] POCT SO2 100 % High 95-98 [facility] Comment on above: Performed By: #### L [id number] ####[facility] ([facility])[address] [place] [address] Potassium [Moles/Vol] 3.9 mmol/L Normal 3.5-4.9 [facility] Comment on above: Performed By: #### L [id number] ####[facility] ([facility])[address] [place] [address] Sodium [Moles/Vol] 139 mmol/L Normal 138.0-146.0 [facility] Comment on above: Performed By: #### L [id number] ####[facility] ([facility])[address] [place] [address] CO2 [Moles/Vol] 23.0 mmol/L Normal 21.0-29.0 [facility] Comment on above: Performed By: #### L [id number] ####[facility] ([facility])[address] [place] [address] Glucose [Mass/Vol] 208 mg/dL High 70-105 [facility] Comment on above: Performed By: #### L [id number] ####[facility] ([facility])[address] [place] [address] HCO3 (Bld) [Moles/Vol] 21.6 mmol/L Low 23.0-28.0 [facility] Comment on above: Performed By: #### L [id number] ####[facility] [address] Hematocrit (Bld) [Volume fraction] 28 % Low 38-51 [facility] Comment on above: Performed By: #### L [id number] ####[facility] ([facility])[address] [address] Hemoglobin (Bld) [Mass/Vol] 9.5 g/dL Low 12.0-17.0 [facility] Comment on above: Performed By: #### L [id number] ####[facility] ([facility])[address] [address] POCT BASE EXCESS -4.0 mmol/L Low -2.0-3.0 [facility] Comment on above: Performed By: #### L [id number] ####[facility] ([facility])[address] [address] POCT IONIZED CALCIUM 1.22 mmol/L Normal 1.12-1.32 [facility] Comment on above: Performed By: #### L [id number] ####[facility] ([facility])[address] [address] POCT PCO2 38.6 mmHg Low 41.0-51.0 [facility] Comment on above: Performed By: #### L [id number] ####[facility] ([facility] [address] POCT PH 7.36 Normal 7.31-7.41 [facility] Comment on above: Performed By: #### L [id number] ####[facility] ([facility] [address] POCT PO2 265 mmHg High 80-105 [facility] Comment on above: Performed By: #### L [id number] ####[facility] ([facility] [address] POCT SO2 100 % High 95-98 [facility] Comment on above: Performed By: #### L [id number] ####[facility] (BEAKER)[address] [place] [address] Potassium [Moles/Vol] 3.9 mmol/L Normal 3.5-4.9 [facility] Comment on above: Performed By: #### L [id number] ####[facility] ([facility])[address] [place] [address] Sodium [Moles/Vol] 137 mmol/L Low 138.0-146.0 [facility] Comment on above: Performed By: #### L [id number] ####[facility] (BEAKER)[address] [place] [address] CO2 [Moles/Vol] 25.0 mmol/L Normal 21.0-29.0 [facility] Comment on above: Performed By: #### L [id number] ####[facility] (BEAKER)[address] [place] [address] Glucose [Mass/Vol] 216 mg/dL High 70-105 [facility] Comment on above: Performed By: #### L [id number] ####[facility] ([facility])[address] [place] [address] HCO3 (Bld) [Moles/Vol] 23.3 mmol/L Normal 23.0-28.0 [facility] Comment on above: Performed By: #### L [id number] ####[facility] ([facility]AKER)[address] [place] [address] Hematocrit (Bld) [Volume fraction] 28 % Low 38-51 [facility] Comment on above: Performed By: #### L [id number] ####[facility] ([facility]AKER)[address] [place] [address] Hemoglobin (Bld) [Mass/Vol] 9.5 g/dL Low 12.0-17.0 [facility] Comment on above: Performed By: #### L [id number] ####[facility] (BEAKER)[address] [place] [address] POCT BASE EXCESS -3.0 mmol/L Low -2.0-3.0 [facility] Comment on above: Performed By: #### L [id number] ####[facility] ([facility]ER)[address] [place] [address] POCT IONIZED CALCIUM 1.29 mmol/L Normal 1.12-1.32 [facility] Comment on above: Performed By: #### L [id number] ####[facility] ([facility]AKER)[address] [place] [address] POCT PCO2 46.6 mmHg Normal 41.0-51.0 [facility] Comment on above: Performed By: #### L [id number] ####[facility] ([facility]AKER)[address] [place] [address] POCT PH 7.31 Normal 7.31-7.41 [facility] Comment on above: Performed By: #### L [id number] ####[facility] ([facility]ER)[address] [place] [address] POCT PO2 348 mmHg High 80-105 [facility] Comment on above: Performed By: #### L [id number] ####[facility] ([facility]AKER)[address] [place] [address] POCT SO2 100 % High 95-98 [facility] Comment on above: Performed By: #### L [id number] ####[facility] ([facility]AKER)[address] [place] [address] Potassium [Moles/Vol] 4.7 mmol/L Normal 3.5-4.9 [facility] Comment on above: Performed By: #### L [id number] ####[facility] ([facility]AKER)[address] [place] [address] Sodium [Moles/Vol] 136 mmol/L Low 138.0-146.0 [facility] Comment on above: Performed By: #### L [id number] ####[facility] ([facility]ER)[address] [place] [address] CO2 [Moles/Vol] 26.0 mmol/L Normal 21.0-29.0 [facility] Comment on above: Performed By: #### L [id number] ####[facility] (BEAKER)[address] [place] [address] Glucose [Mass/Vol] 173 mg/dL High 70-105 [facility] Comment on above: Performed By: #### L [id number] ####[facility] (BEAKER)[address] [place] [address] HCO3 (Bld) [Moles/Vol] 24.8 mmol/L Normal 23.0-28.0 [facility] Comment on above: Performed By: #### L [id number] ####[facility] (BEAKER)[address] [place] [address] Hematocrit (Bld) [Volume fraction] 30 % Low 38-51 [facility] Comment on above: Performed By: #### L [id number] ####[facility] (BEAKER)[address] [place] [address] Hemoglobin (Bld) [Mass/Vol] 10.2 g/dL Low 12.0-17.0 [facility] Comment on above: Performed By: #### L [id number] ####[facility] ([facility]AKER)[address] [place] [address] POCT BASE EXCESS 0.0 mmol/L Normal -2.0-3.0 [facility] Comment on above: Performed By: #### L [id number] ####[facility] (BEAKER)[address] [place] [address] POCT IONIZED CALCIUM 1.57 mmol/L Critically high 1.12-1.32 [facility] Comment on above: Performed By: #### L [id number] ####[facility] ([facility]ER)[address] [place] [address] POCT PCO2 40.5 mmHg Low 41.0-51.0 [facility] Comment on above: Performed By: #### L [id number] ####[facility] ([facility]ER)[address] [place] [address] POCT PH 7.40 Normal 7.31-7.41 [facility] Comment on above: Performed By: #### L [id number] ####[facility] ([facility]ER)[address] [place] [address] POCT PO2 321 mmHg High 80-105 [facility] Comment on above: Performed By: #### L [id number] ####[facility] ([facility]AKER)[address] [place] [address] POCT SO2 100 % High 95-98 [facility] Comment on above: Performed By: #### L [id number] ####[facility] ([facility]AKER)[address] [place] [address] Potassium [Moles/Vol] 5.4 mmol/L High 3.5-4.9 [facility] Comment on above: Performed By: #### L [id number] ####[facility] ([facility]ER)[address] [place] [address] Sodium [Moles/Vol] 134 mmol/L Low 138.0-146.0 [facility] Comment on above: Performed By: #### L [id number] ####[facility] ([facility]AKER)[address] [place] [address] CO2 [Moles/Vol] 25.0 mmol/L Normal 21.0-29.0 [facility] Comment on above: Performed By: #### L [id number] ####[facility] (BEAKER)[address] [place] [address] Glucose [Mass/Vol] 171 mg/dL High 70-105 [facility] Comment on above: Performed By: #### L [id number] ####[facility] (BEAKER)[address] [place] [address] HCO3 (Bld) [Moles/Vol] 23.6 mmol/L Normal 23.0-28.0 [facility] Comment on above: Performed By: #### L [id number] ####[facility] [address] Hematocrit (Bld) [Volume fraction] 30 % Low 38-51 [facility] Comment on above: Performed By: #### L [id number] ####[facility] ([facility])[address] [address] Hemoglobin (Bld) [Mass/Vol] 10.2 g/dL Low 12.0-17.0 [facility] Comment on above: Performed By: #### L [id number] ####[facility] ([facility])[address] [address] POCT BASE EXCESS -2.0 mmol/L Normal -2.0-3.0 [facility] Comment on above: Performed By: #### L [id number] ####[facility] ([facility])[address] [address] POCT IONIZED CALCIUM 1.12 mmol/L Normal 1.12-1.32 [facility] Comment on above: Performed By: #### L [id number] ####[facility] ([facility])[address] [address] POCT PCO2 44.0 mmHg Normal 41.0-51.0 [facility] Comment on above: Performed By: #### L [id number] ####[facility] [address] POCT PH 7.34 Normal 7.31-7.41 [facility] Comment on above: Performed By: #### L [id number] ####[facility] [address] POCT PO2 390 mmHg High 80-105 [facility] Comment on above: Performed By: #### L [id number] ####[facility] [address] POCT SO2 100 % High 95-98 [facility] Comment on above: Performed By: #### L [id number] ####[facility] ([facility]AKER)[address] [place] [address] Potassium [Moles/Vol] 5.4 mmol/L High 3.5-4.9 [facility] Comment on above: Performed By: #### L [id number] ####[facility] ([facility]AKER)[address] [place] [address] Sodium [Moles/Vol] 136 mmol/L Low 138.0-146.0 [facility] Comment on above: Performed By: #### L [id number] ####[facility] (BEAKER)[address] [place] [address] CO2 [Moles/Vol] 25.0 mmol/L Normal 21.0-29.0 [facility] Comment on above: Performed By: #### L [id number] ####[facility] (BEAKER)[address] [place] [address] Glucose [Mass/Vol] 184 mg/dL High 70-105 [facility] Comment on above: Performed By: #### L [id number] ####[facility] ([facility]AKER)[address] [place] [address] HCO3 (Bld) [Moles/Vol] 23.7 mmol/L Normal 23.0-28.0 [facility] Comment on above: Performed By: #### L [id number] ####[facility] (BEAKER)[address] [place] [address] Hematocrit (Bld) [Volume fraction] 33 % Low 38-51 [facility] Comment on above: Performed By: #### L [id number] ####[facility] ([facility]ER)[address] [place] [address] Hemoglobin (Bld) [Mass/Vol] 11.2 g/dL Low 12.0-17.0 [facility] Comment on above: Performed By: #### L [id number] ####[facility] ([facility])[address] [place] [address] POCT BASE EXCESS -3.0 mmol/L Low -2.0-3.0 [facility] Comment on above: Performed By: #### L [id number] ####[facility] ([facility]ER)[address] [place] [address] POCT IONIZED CALCIUM 1.09 mmol/L Low 1.12-1.32 [facility] Comment on above: Performed By: #### L [id number] ####[facility] ([facility])[address] [place] [address] POCT PCO2 46.1 mmHg Normal 41.0-51.0 [facility] Comment on above: Performed By: #### L [id number] ####[facility] ([facility]AKER)[address] [place] [address] POCT PH 7.32 Normal 7.31-7.41 [facility] Comment on above: Performed By: #### L [id number] ####[facility] ([facility]AKER)[address] [place] [address] POCT PO2 400 mmHg High 80-105 [facility] Comment on above: Performed By: #### L [id number] ####[facility] ([facility]ER)[address] [place] [address] POCT SO2 100 % High 95-98 [facility] Comment on above: Performed By: #### L [id number] ####[facility] (BEAKER)[address] [place] [address] Potassium [Moles/Vol] 4.5 mmol/L Normal 3.5-4.9 [facility] Comment on above: Performed By: #### L [id number] ####[facility] ([facility]ER)[address] [place] [address] Sodium [Moles/Vol] 136 mmol/L Low 138.0-146.0 [facility] Comment on above: Performed By: #### L [id number] ####[facility] ([facility]ER)[address] [place] [address] CO2 [Moles/Vol] 25.0 mmol/L Normal 21.0-29.0 [facility] Comment on above: Performed By: #### L [id number] ####[facility] (BE[facility]ER)[address] [place] [address] Glucose [Mass/Vol] 193 mg/dL High 70-105 [facility] Comment on above: Performed By: #### L [id number] ####[facility] (BEAKER)[address] [place] [address] HCO3 (Bld) [Moles/Vol] 23.6 mmol/L Normal 23.0-28.0 [facility] Comment on above: Performed By: #### L [id number] ####[facility] (BEAKER)[address] [place] [address] Hematocrit (Bld) [Volume fraction] 26 % Low 38-51 [facility] Comment on above: Performed By: #### L [id number] ####[facility] (BEAKER)[address] [place] [address] Hemoglobin (Bld) [Mass/Vol] 8.8 g/dL Low 12.0-17.0 [facility] Comment on above: Performed By: #### L [id number] ####[facility] (BEAKER)[address] [place] [address] POCT BASE EXCESS -2.0 mmol/L Normal -2.0-3.0 [facility] Comment on above: Performed By: #### L [id number] ####[facility] (BEAKER)[address] [place] [address] POCT IONIZED CALCIUM 1.06 mmol/L Low 1.12-1.32 [facility] Comment on above: Performed By: #### L [id number] ####[facility] ([facility]ER)[address] [place] [address] POCT PCO2 40.9 mmHg Low 41.0-51.0 [facility] Comment on above: Performed By: #### L [id number] ####[facility] ([facility]ER)[address] [place] [address] POCT PH 7.37 Normal 7.31-7.41 [facility] Comment on above: Performed By: #### L [id number] ####[facility] ([facility]ER)[address] [place] [address] POCT PO2 510 mmHg High 80-105 [facility] Comment on above: Performed By: #### L [id number] ####[facility] ([facility]ER)[address] [place] [address] POCT SO2 100 % High 95-98 [facility] Comment on above: Performed By: #### L [id number] ####[facility] ([facility]ER)[address] [place] [address] Potassium [Moles/Vol] 4.4 mmol/L Normal 3.5-4.9 [facility] Comment on above: Performed By: #### L [id number] ####[facility] ([facility]ER)[address] [place] [address] Sodium [Moles/Vol] 135 mmol/L Low 138.0-146.0 [facility] Comment on above: Performed By: #### L [id number] ####[facility] ([facility]ER)[address] [place] [address] CO2 [Moles/Vol] 24.0 mmol/L Normal 21.0-29.0 [facility] Comment on above: Performed By: #### L [id number] ####[facility] ([facility]ER)[address] [place] [address] Glucose [Mass/Vol] 185 mg/dL High 70-105 [facility] Comment on above: Performed By: #### L [id number] ####[facility] ([facility]ER)[address] [place] [address] HCO3 (Bld) [Moles/Vol] 22.7 mmol/L Low 23.0-28.0 [facility] Comment on above: Performed By: #### L [id number] ####[facility] ([facility])[address] [address] Hematocrit (Bld) [Volume fraction] 26 % Low 38-51 [facility] Comment on above: Performed By: #### L [id number] ####[facility] ([facility])[address] [address] Hemoglobin (Bld) [Mass/Vol] 8.8 g/dL Low 12.0-17.0 [facility] Comment on above: Performed By: #### L [id number] ####[facility] ([facility])[address] [address] POCT BASE EXCESS -2.0 mmol/L Normal -2.0-3.0 [facility] Comment on above: Performed By: #### L [id number] ####[facility] ([facility])[address] [address] POCT IONIZED CALCIUM 1.10 mmol/L Low 1.12-1.32 [facility] Comment on above: Performed By: #### L [id number] ####[facility] ([facility])[address] [address] POCT PCO2 37.2 mmHg Low 41.0-51.0 [facility] Comment on above: Performed By: #### L [id number] ####[facility] ([facility])[address] [address] POCT PH 7.39 Normal 7.31-7.41 [facility] Comment on above: Performed By: #### L [id number] ####[facility] ([facility])[address] [address] POCT PO2 485 mmHg High 80-105 [facility] Comment on above: Performed By: #### L [id number] ####[facility] ([facility])[address] [place] [address] POCT SO2 100 % High 95-98 [facility] Comment on above: Performed By: #### L [id number] ####[facility] ([facility])[address] [address] Potassium [Moles/Vol] 3.7 mmol/L Normal 3.5-4.9 [facility] Comment on above: Performed By: #### L [id number] ####[facility] (BEAKER)[address] [place] [address] Sodium [Moles/Vol] 136 mmol/L Low 138.0-146.0 [facility] Comment on above: Performed By: #### L [id number] ####[facility] ([facility]ER)[address] [address] CO2 [Moles/Vol] 23.0 mmol/L Normal 21.0-29.0 [facility] Comment on above: Performed By: #### L [id number] ####[facility] (BEAKER)[address] [place], [place] [address] Glucose [Mass/Vol] 132 mg/dL High 70-105 [facility] Comment on above: Performed By: #### L [id number] ####[facility] ([facility])[address] [address] HCO3 (Bld) [Moles/Vol] 21.5 mmol/L Low 23.0-28.0 [facility] Comment on above: Performed By: #### L [id number] ####[facility] ([facility])[address] [place] [address] Hematocrit (Bld) [Volume fraction] 29 % Low 38-51 [facility] Comment on above: Performed By: #### L [id number] ####[facility] (BE[facility]ER)[address] [place] [address] Hemoglobin (Bld) [Mass/Vol] 9.9 g/dL Low 12.0-17.0 [facility] Comment on above: Performed By: #### L [id number] ####[facility] ([facility])[address] [place] [address] POCT BASE EXCESS -4.0 mmol/L Low -2.0-3.0 [facility] Comment on above: Performed By: #### L [id number] ####[facility] (BE[facility]ER)[address] [place] [address] POCT IONIZED CALCIUM 1.27 mmol/L Normal 1.12-1.32 [facility] Comment on above: Performed By: #### L [id number] ####[facility] ([facility]ER)[address] [place] [address] POCT PCO2 38.3 mmHg Low 41.0-51.0 [facility] Comment on above: Performed By: #### L [id number] ####[facility] [place] [address] POCT PH 7.36 Normal 7.31-7.41 [facility] Comment on above: Performed By: #### L [id number] ####[facility] [place] [address] POCT PO2 214 mmHg High 80-105 [facility] Comment on above: Performed By: #### L [id number] ####[facility] [place] [address] POCT SO2 100 % High 95-98 [facility] Comment on above: Performed By: #### L [id number] ####[facility] ([facility])[address] [place] [address] Potassium [Moles/Vol] 3.9 mmol/L Normal 3.5-4.9 [facility] Comment on above: Performed By: #### L [id number] ####[facility] ([facility])[address] [place] [address] Sodium [Moles/Vol] 137 mmol/L Low 138.0-146.0 [facility] Comment on above: Performed By: #### L [id number] ####[facility] ([facility])[address] [place] [address] POCT BASE EXCESS Normal [facility] Comment on above: Performed By: #### L [id number] ####[facility] ([facility])[address] [place] [address] POCT GLUCOSE Normal [facility] Comment on above: Performed By: #### L [id number] ####[facility] [place] [address] POCT HCO3 Normal [facility] Comment on above: Performed By: #### L [id number] ####[facility] ([facility])[address] [place] [address] POCT HEMATOCRIT Normal [facility] Comment on above: Performed By: #### L [id number] ####[facility] ([facility])[address] [place] [address] POCT HEMOGLOBIN Normal [facility] Comment on above: Performed By: #### L [id number] ####[facility] ([facility])[address] [place] [address] POCT IONIZED CALCIUM Normal [facility] Comment on above: Performed By: #### L [id number] ####[facility] [place] [address] POCT PCO2 Normal [facility] Comment on above: Performed By: #### L [id number] ####[facility] ([facility])[address] [place] [address] POCT PH Normal [facility] Comment on above: Performed By: #### L [id number] ####[facility] ([facility])[address] [place] [address] POCT PO2 53 mmHg Low 80-105 [facility] Comment on above: Performed By: #### L [id number] ####[facility] ([facility])[address] [place] [address] POCT POTASSIUM Normal [facility] Comment on above: Performed By: #### L [id number] ####[facility] ([facility])[address] [place] [address] POCT SO2 85 % Low 95-98 [facility] Comment on above: Performed By: #### L [id number] ####[facility] ([facility])[address] [place] [address] POCT SODIUM Normal [facility] Comment on above: Performed By: #### L [id number] ####[facility] ([facility])[address] [place] [address] POCT TOTAL CO2 Normal [facility] Comment on above: Performed By: #### L [id number] ####[facility] ([facility])[address] [place] [address] CO2 [Moles/Vol] 25.0 mmol/L Normal 21.0-29.0 [facility] Comment on above: Performed By: #### L [id number] ####[facility] (BE[facility]ER)[address] [place] [address] Glucose [Mass/Vol] 114 mg/dL High 70-105 [facility] Comment on above: Performed By: #### L [id number] ####[facility] ([facility])[address] [place] [address] HCO3 (Bld) [Moles/Vol] 23.4 mmol/L Normal 23.0-28.0 [facility] Comment on above: Performed By: #### L [id number] ####[facility] ([facility])[address] [place] [address] Hematocrit (Bld) [Volume fraction] 30 % Low 38-51 [facility] Comment on above: Performed By: #### L [id number] ####[facility] ([facility])[address] [place] [address] Hemoglobin (Bld) [Mass/Vol] 10.2 g/dL Low 12.0-17.0 [facility] Comment on above: Performed By: #### L [id number] ####[facility] ([facility]AKER)[address] [place] [address] POCT BASE EXCESS -2.0 mmol/L Normal -2.0-3.0 [facility] Comment on above: Performed By: #### L [id number] ####[facility] ([facility]AKER)[address] [place] [address] POCT IONIZED CALCIUM 1.19 mmol/L Normal 1.12-1.32 [facility] Comment on above: Performed By: #### L [id number] ####[facility] ([facility]AKER)[address] [place] [address] POCT PCO2 40.0 mmHg Low 41.0-51.0 [facility] Comment on above: Performed By: #### L [id number] ####[facility] (BEAKER)[address] [place] [address] POCT PH 7.38 Normal 7.31-7.41 [facility] Comment on above: Performed By: #### L [id number] ####[facility] (BEAKER)[address] [place] [address] POCT PO2 159 mmHg High 80-105 [facility] Comment on above: Performed By: #### L [id number] ####[facility] (BEAKER)[address] [place] [address] POCT SO2 99 % High 95-98 [facility] Comment on above: Performed By: #### L [id number] ####[facility] (BEAKER)[address] [place] [address] Potassium [Moles/Vol] 4.1 mmol/L Normal 3.5-4.9 [facility] Comment on above: Performed By: #### L [id number] ####[facility] (BEAKER)[address] [place] [address] Sodium [Moles/Vol] 137 mmol/L Low 138.0-146.0 [facility] Comment on above: Performed By: #### L [id number] ####[facility] (BEAKER)[address] [place] [address] PROTIME-INRon 06-26-2023 INR IN PPP BY COAGULATION ASSAY 1.29 High 0.90-1.10 [facility] Comment on above: Result Comment: [facility] P RECOMMENDED INR FOR [facility] THERAPY CONDITION INRPROPHYLAXIS OF VENOUS THROMBOSIS 2-3(HIGH-RISK SURGERY)TREATMENT OF VENOUS THROMBOSIS 2-3TREATMENT OF PULMONARY EMBOLISM 2-3PREVENTION OF SYSTEMIC EMBOLISM: 2-3 ACUTE MYOCARDIAL INFARCTION TISSUE HEART VALVES VALVULAR HEART DISEASE ATRIAL FIBRILLATION RECURRENT SYSTEMIC EMBOLISMMECHANICAL HEART VALVE 2.5-3.5 FROM: ORAL ANTICOAGULANTS. MECHANISM OF ACTION, CLINICAL EFFECTIVENESS, AND OPTIMAL THERAPEUTIC RANGE. CHEST 1995;108:231S-246S. Performed By: #### L [id number] ####[facility] (BEAKER)[address] [place] [address] PROTHROMBIN TIME (PT) IN PPP BY COAGULATION ASSAY 16.1 Seconds High 12.3-14.8 [facility] Comment on above: Performed By: #### L [id number] ####[facility] (BEAKER)[address] [place] [address] INR IN PPP BY COAGULATION ASSAY 1.37 High 0.90-1.10 [facility] Comment on above: Order Comment: Pre-o p diagnosis:Aortic valve disorder [I35.9] Result Comment: [facility] P RECOMMENDED INR FOR WARFARIN THERAPY CONDITION INRPROPHYLAXIS OF VENOUS THROMBOSIS 2-3(HIGH-RISK SURGERY)TREATMENT OF VENOUS THROMBOSIS 2-3TREATMENT OF PULMONARY EMBOLISM 2-3PREVENTION OF SYSTEMIC EMBOLISM: 2-3 ACUTE MYOCARDIAL INFARCTION TISSUE HEART VALVES VALVULAR HEART DISEASE ATRIAL FIBRILLATION RECURRENT SYSTEMIC EMBOLISMMECHANICAL HEART VALVE 2.5-3.5 FROM: ORAL ANTICOAGULANTS. MECHANISM OF ACTION, CLINICAL EFFECTIVENESS, AND OPTIMAL THERAPEUTIC RANGE. CHEST 1995;108:231S-246S. Performed By: #### L [id number] ####[facility] [employer] (Hired)[address] [place] [address] PROTHROMBIN TIME (PT) IN PPP BY COAGULATION ASSAY 16.9 Seconds High 12.3-14.8 [facility] Comment on above: Order Comment: Pre-o p diagnosis:Aortic valve disorder [I35.9] Performed By: #### L [id number] ####[facility] (Hired)[address] [place] [address] INR IN PPP BY COAGULATION ASSAY 1.06 Normal 0.90-1.10 [facility] Comment on above: Result Comment: ACCC [...] CHEST 1995;108:231S-246S. Performed By: #### L [id number] ####[facility] (Hired)[address] [place] [address] PROTHROMBIN TIME (PT) IN PPP BY COAGULATION ASSAY 13.8 Seconds Normal 12.3-14.8 [facility] Comment on above: Performed By: #### L [id number] ####[facility] ([facility])[address] [place] [address] TISSUE CULTUREon 06-26-2023 Bacteria identified Cx Nom (Unsp spec) No growth at 5 days Normal [facility] Comment on above: Order Comment: Pre-o p diagnosis:Aortic valve disorder [I35.9] Performed By: #### L [id number] ####[facility] ([facility])[address] [place] [address] GRAM STAIN RESULT Normal [facility] Comment on above: Order Comment: Pre-o p diagnosis:Aortic valve disorder [I35.9] Result Comment: No p olymorphonuclear leukocytes seenNo organisms seen Performed By: #### L [id number] ####[facility] ([facility])[address] [place] [address] 30on 06-25-2023 30 Normal [facility] ANESon 06-25-2023 ANES Normal [facility] APTTon 06-25-2023 ACTIVATED PARTIAL THROMBOPLASTIN TIME IN PPP BY COAGULATION ASSAY 31.3 Seconds Normal 25.0-35.0 [facility] Comment on above: Result Comment: Clin ical significance of the APTT is questionable in the presence of heparin. Performed By: #### L [id number] ####[facility] ([employer])[address] [place] [address] CBC WITH AUTO DIFFERENTIALon 06-25-2023 Basophils (Bld) [#/Vol] 0.04 10*3/uL Normal 0.00-0.20 [facility] Comment on above: Performed By: #### L [id number] ####[facility] (BEAKER)[address] [place] [address] Basophils/100 WBC (Bld) 0.8 % Normal 0.0-1.0 [facility] Comment on above: Performed By: #### L [id number] ####[facility] (BEAKER)[address] [place] [address] Eosinophils (Bld) [#/Vol] 0.38 10*3/uL Normal 0.00-0.50 [facility] Comment on above: Performed By: #### L [id number] ####[facility] (BEAKER)[address] [place] [address] Eosinophils/100 WBC (Bld) 7.7 % High 0.0-6.0 [facility] Comment on above: Performed By: #### L [id number] ####[facility] (BEAKER)[address] [place] [address] Erythrocyte distribution width (RBC) [Ratio] 16.0 % High 11.5-15.0 [facility] Comment on above: Performed By: #### L [id number] ####[facility] (BEAKER)[address] [place] [address] ERYTHROCYTE MEAN CORPUSCULAR HEMOGLOBIN CONCENTRATION (G/DL) BY AUTOMATED 34.0 g/dL Normal 32.0-35.0 [facility] Comment on above: Performed By: #### L [id number] ####[facility] (BEAKER)[address] [place] [address] Hematocrit (Bld) [Volume fraction] 32.6 % Low 39.0-55.0 [facility] Comment on above: Performed By: #### L [id number] ####[facility] (BEAKER)[address] [place] [address] Hemoglobin (Bld) [Mass/Vol] 11.1 g/dL Low 13.0-17.0 [facility] Comment on above: Performed By: #### L [id number] ####[facility] ([facility])[address] [place] [address] Immature granulocytes (Bld) [#/Vol] 0.02 10*3/uL Normal 0.00-0.20 [facility] Comment on above: Performed By: #### L [id number] ####[facility] ([facility])[address] [place] [address] Immature granulocytes/100 WBC (Bld) 0.4 % Normal 0.0-1.0 [facility] Comment on above: Performed By: #### L [id number] ####[facility] ([facility])[address] [place] [address] Lymphocytes (Bld) [#/Vol] 0.80 10*3/uL Low 1.20-4.00 [facility] Comment on above: Performed By: #### L [id number] ####[facility] ([facility])[address] [place] [address] Lymphocytes/100 WBC (Bld) 16.2 % Low 20.0-45.0 [facility] Comment on above: Performed By: #### L [id number] ####[facility] ([facility])[address] [place] [address] MCH (RBC) [Entitic mass] 29.8 pg Normal 27.0-33.0 [facility] Comment on above: Performed By: #### L [id number] ####[facility] ([facility] [place] [address] MCV (RBC) [Entitic vol] 87.4 fL Normal 82.0-98.0 [facility] Comment on above: Performed By: #### L [id number] ####[facility] ([facility] [place] [address] Monocytes (Bld) [#/Vol] 0.42 10*3/uL Normal 0.10-1.00 [facility] Comment on above: Performed By: #### L [id number] ####[facility] (BEAKER)[address] [place] [address] Monocytes/100 WBC (Bld) 8.5 % Normal 5.0-12.0 [facility] Comment on above: Performed By: #### L [id number] ####[facility] (BEAKER)[address] [place] [address] Neutrophils (Bld) [#/Vol] 3.29 10*3/uL Normal 1.60-7.60 [facility] Comment on above: Performed By: #### L [id number] ####[facility] (BEAKER)[address] [place] [address] Neutrophils/100 WBC (Bld) 66.4 % Normal 40.0-72.0 [facility] Comment on above: Performed By: #### L [id number] ####[facility] ([facility])[address] [place], [place] [address] NRBC (PER 100 WBCS) BY AUTOMATED COUNT 0.0 % Normal 0 [facility] Comment on above: Performed By: #### L [id number] ####[facility] (BEAKER)[address] [place], [place] [address] PLATELETS (10*3/UL) IN BLOOD AUTOMATED COUNT 142 10*3/uL Low 150-400 [facility] Comment on above: Performed By: #### L [id number] ####[facility] (BEAKER)[address] [place] [address] RBC (Bld) [#/Vol] 3.73 10*6/uL Low 4.20-5.70 [facility] Comment on above: Performed By: #### L [id number] ####[facility] (BEAKER)[address] [place] [address] WBC (Bld) [#/Vol] 4.95 10*3/uL Normal 4.00-10.60 [facility] Comment on above: Performed By: #### L [id number] ####[facility] (BEAKER)[address] [place] [address] COMPREHENSIVE METABOLIC PANE Braulio 06-25-2023 Albumin [Mass/Vol] 3.9 g/dL Normal 3.5-5.7 [facility] Comment on above: Performed By: #### L [id number] ####[facility] (BEAKER)[address] [place] [address] ALP [Catalytic activity/Vol] 49 U/L Normal 34-104 [facility] Comment on above: Performed By: #### L [id number] ####[facility] ([facility] [place] [address] ALT [Catalytic activity/Vol] 13 U/L Normal 7-52 [facility] Comment on above: Performed By: #### L [id number] ####[facility] ([facility] [place] [address] Anion gap [Moles/Vol] 11 mmol/L Normal 7-20 [facility] Comment on above: Performed By: #### L [id number] ####[facility] ([facility] [place] [address] AST [Catalytic activity/Vol] 12 U/L Low 13-39 [facility] Comment on above: Performed By: #### L [id number] ####[facility] ([facility] [place] [address] Bilirubin [Mass/Vol] 0.8 mg/dL Normal 0.3-1.0 [facility] Comment on above: Performed By: #### L [id number] ####[facility] ([facility] [place] [address] Calcium [Mass/Vol] 8.8 mg/dL Normal 8.6-10.3 [facility] Comment on above: Performed By: #### L [id number] ####[facility] (BEAKER)[address] [place] [address] Chloride [Moles/Vol] 102 mmol/L Normal 98-107 [facility] Comment on above: Performed By: #### L [id number] ####[facility] (BEAKER)[address] [place] [address] CO2 [Moles/Vol] 26 mmol/L Normal 21-31 [facility] Comment on above: Performed By: #### L [id number] ####[facility] (BEAKER)[address] [place] [address] Creatinine [Mass/Vol] 0.84 mg/dL Normal 0.70-1.30 [facility] Comment on above: Performed By: #### L [id number] ####[facility] (BEAKER)[address] [place] [address] GLOMERULAR FILTRATION RATE ML/MIN/1.73 SQ M.PREDICTED 106.2 mL/min/1.73m*2 Normal >60.0 [facility] Comment on above: Result Comment: The [facility]???s estimated glomerular filtration rate (eGFR) will [...] of individuals. Performed By: #### L [id number] ####[facility] (BEAKER)[address] [place] [address] Glucose [Mass/Vol] 93 mg/dL Normal 70-100 [facility] Comment on above: Performed By: #### L [id number] ####[facility] (BEAKER)[address] [place] [address] Potassium [Moles/Vol] 4.3 mmol/L Normal 3.5-5.1 [facility] Comment on above: Performed By: #### L [id number] ####[facility] (BEAKER)[address] [place] [address] Protein [Mass/Vol] 6.2 g/dL Normal 6.0-8.3 [facility] Comment on above: Performed By: #### L [id number] ####[facility] ([facility])[address] [place] [address] Sodium [Moles/Vol] 135 mmol/L Low 136-145 [facility] Comment on above: Performed By: #### L [id number] ####[facility] ([facility])[address] [place] [address] Urea nitrogen [Mass/Vol] 15 mg/dL Normal 7-25 [facility] Comment on above: Performed By: #### L [id number] ####[facility] ([facility])[address] [place] [address] UREA NITROGEN/CREATININE (MASS RATIO) IN SER/PLAS 17.9 Normal [facility] Comment on above: Performed By: #### L [id number] ####[facility] ([facility])[address] [place] [address] MAGNESIUMon 06-25-2023 Magnesium [Mass/Vol] 1.9 mg/dL Normal 1.9-2.7 [facility] Comment on above: Performed By: #### L [id number] ####[facility] ([facility])[address] [place] [address] MRSA/MSSA DNA NASALon 2023 MRSA DNA Negative Normal Negative [facility] Comment on above: Order Comment: Testi [...] preclude nasal colonization. Performed By: #### L [id number] ####[facility] ([facility])[address] [place] [address] MSSA DNA Negative Normal Negative [facility] Comment on above: Order Comment: Testi [...] preclude nasal colonization. Performed By: #### L [id number] ####[facility] [employer])[address] [place] [address] PROTIME-INRon 06-25-2023 INR IN PPP BY COAGULATION ASSAY 1.02 Normal 0.90-1.10 [facility] Comment on above: Result Comment: ACCC [...] CHEST 1995;108:231S-246S. Performed By: #### L [id number] ####[facility] [employer])[address] [place] [address] PROTHROMBIN TIME (PT) IN PPP BY COAGULATION ASSAY 13.4 Seconds Normal 12.3-14.8 [facility] Comment on above: Performed By: #### L [id number] ####[facility] [employer])[address] [place] [address] TYPE AND SCREENon 06-25-2023 AB SCREEN Negative Normal [facility] Comment on above: Performed By: #### L [id number] ####[facility]OD [facility], ABO group Nom (Bld) A Normal [facility] Comment on above: Performed By: #### L [id number] ####[facility], RH TYPE IN BLOOD Negative Normal [facility] Comment on above: Performed By: #### L [id number] ####[facility], URINALYSISon 06-25-2023 BILIRUBIN, TOTAL PRESENCE IN URINE Negative Normal Negative [facility] Comment on above: Performed By: #### L [id number] ####[facility] ([facility])[address] [place] [address] Clarity (U) Clear Normal Clear [facility] Comment on above: Performed By: #### L [id number] ####[facility] (BEAKER)[address] [place] [address] Color (U) Kylie Abnormal Yellow [facility] Comment on above: Performed By: #### L [id number] ####[facility] (BEAKER)[address] [place] [address] Glucose (U) [Mass/Vol] Negative Normal Negative [facility] Comment on above: Performed By: #### L [id number] ####[facility] (BEAKER)[address] [place] [address] HEMOGLOBIN PRESENCE IN URINE Negative Normal Negative [facility] Comment on above: Performed By: #### L [id number] ####[facility] (BEAKER)[address] [place] [address] Ketones Ql (U) Negative Normal Negative [facility] Comment on above: Performed By: #### L [id number] ####[facility] (BEAKER)[address] [place] [address] LEUKOCYTE ESTERASE PRESENCE IN URINE BY TEST STRIP Negative Normal Negative [facility] Comment on above: Performed By: #### L [id number] ####[facility] ([facility] [place] [address] NITRITE PRESENCE IN URINE Negative Normal Negative [facility] Comment on above: Performed By: #### L [id number] ####[facility] ([facility])[address] [place] [address] pH (U) 5.0 [pH] Normal 5.0-8.0 [facility] Comment on above: Performed By: #### L [id number] ####[facility] ([facility])[address] [place] [address] Protein (U) [Mass/Vol] 100 mg/dL Abnormal Negative [facility] Comment on above: Performed By: #### L [id number] ####[facility] ([facility])[address] [place] [address] Specific gravity (U) [Rel density] 1.033 High 1.015-1.020 [facility] Comment on above: Performed By: #### L [id number] ####[facility] ([facility])[address] [place] [address] UROBILINOGEN (EU/DL) IN URINE 2.0 EU/dL Abnormal Negative [facility] Comment on above: Performed By: #### L [id number] ####[facility] ([facility])[address] [place] [address] URINALYSIS MICROSCOPICon CALCIUM OXALATE CRYSTALS (#/HPF) IN URINE Occasional Abnormal None Seen [facility] Comment on above: Performed By: #### L [id number] ####[facility] ([facility])[address] [place] [address] CASTS IN URINE Normal [facility] Comment on above: Performed By: #### L [id number] ####[facility] ([facility])[address] [place] [address] CRYSTALS IN URINE Present Abnormal None Seen [facility] Comment on above: Performed By: #### L [id number] ####[facility] ([facility])[address] [place] [address] MUCUS (#/HPF) IN URINE SEDIMENT Moderate Abnormal None Seen, Occasional, Few [facility] Comment on above: Performed By: #### L [id number] ####[facility] ([facility] [place] [address] RBC (#/HPF) IN URINE SEDIMENT 3-5 Abnormal None Seen [facility] Comment on above: Performed By: #### L [id number] ####[facility] ([facility])[address] [place] [address] SQUAMOUS EPITHELIAL CELLS (#/HPF) IN URINE SEDIMENT Few Abnormal None Seen, Occasional [facility] Comment on above: Performed By: #### L [id number] ####[facility] ([facility])[address] [place] [address] WBC (LEUKOCYTE) (#/HPF) IN URINE SEDIMENT 0-2 Abnormal None Seen [facility] Comment on above: Performed By: #### L [id number] ####[facility] ([facility])[address] [place] [address] 30on 06-24-2023 30 Normal [facility] 30 Normal [facility] 30 Normal [facility] ANESon 06-24-2023 ANES Normal [facility] CBC WITH AUTO DIFFERENTIALon 06-24-2023 Basophils (Bld) [#/Vol] 0.03 10*3/uL Normal 0.00-0.20 [facility] Comment on above: Performed By: #### L [id number] ####[facility] ([facility] [place] [address] Basophils/100 WBC (Bld) 0.4 % Normal 0.0-1.0 [facility] Comment on above: Performed By: #### L [id number] ####[facility] (BEAKER)[address] [place] [address] Eosinophils (Bld) [#/Vol] 0.57 10*3/uL High 0.00-0.50 [facility] Comment on above: Performed By: #### L [id number] ####[facility] (BEAKER)[address] [place] [address] Eosinophils/100 WBC (Bld) 7.7 % High 0.0-6.0 [facility] Comment on above: Performed By: #### L [id number] ####[facility] (BEAKER)[address] [place] [address] Erythrocyte distribution width (RBC) [Ratio] 16.3 % High 11.5-15.0 [facility] Comment on above: Performed By: #### L [id number] ####[facility] ([facility] [place] [address] ERYTHROCYTE MEAN CORPUSCULAR HEMOGLOBIN CONCENTRATION (G/DL) BY AUTOMATED 33.1 g/dL Normal 32.0-35.0 [facility] Comment on above: Performed By: #### L [id number] ####[facility] ([facility])[address] [place] [address] Hematocrit (Bld) [Volume fraction] 35.3 % Low 39.0-55.0 [facility] Comment on above: Performed By: #### L [id number] ####[facility] ([facility] [place] [address] Hemoglobin (Bld) [Mass/Vol] 11.7 g/dL Low 13.0-17.0 [facility] Comment on above: Performed By: #### L [id number] ####[facility] ([facility] [place] [address] Immature granulocytes (Bld) [#/Vol] 0.03 10*3/uL Normal 0.00-0.20 [facility] Comment on above: Performed By: #### L [id number] ####[facility] (BEAKER)[address] [place] [address] Immature granulocytes/100 WBC (Bld) 0.4 % Normal 0.0-1.0 [facility] Comment on above: Performed By: #### L [id number] ####[facility] (BEAKER)[address] [place] [address] Lymphocytes (Bld) [#/Vol] 1.05 10*3/uL Low 1.20-4.00 [facility] Comment on above: Performed By: #### L [id number] ####[facility] (BEAKER)[address] [place] [address] Lymphocytes/100 WBC (Bld) 14.2 % Low 20.0-45.0 [facility] Comment on above: Performed By: #### L [id number] ####[facility] (BEAKER)[address] [place] [address] MCH (RBC) [Entitic mass] 29.3 pg Normal 27.0-33.0 [facility] Comment on above: Performed By: #### L [id number] ####[facility] (BEAKER)[address] [place] [address] MCV (RBC) [Entitic vol] 88.5 fL Normal 82.0-98.0 [facility] Comment on above: Performed By: #### L [id number] ####[facility] (BEAKER)[address] [place] [address] Monocytes (Bld) [#/Vol] 0.50 10*3/uL Normal 0.10-1.00 [facility] Comment on above: Performed By: #### L [id number] ####[facility] (BEAKER)[address] [place] [address] Monocytes/100 WBC (Bld) 6.8 % Normal 5.0-12.0 [facility] Comment on above: Performed By: #### L [id number] ####[facility] (BEAKER)[address] [place] [address] Neutrophils (Bld) [#/Vol] 5.20 10*3/uL Normal 1.60-7.60 [facility] Comment on above: Performed By: #### L [id number] ####[facility] (BEAKER)[address] [place] [address] Neutrophils/100 WBC (Bld) 70.5 % Normal 40.0-72.0 [facility] Comment on above: Performed By: #### L [id number] ####[facility] ([facility])[address] [place] [address] NRBC (PER 100 WBCS) BY AUTOMATED COUNT 0.0 % Normal 0 [facility] Comment on above: Performed By: #### L [id number] ####[facility] ([facility])[address] [address] PLATELETS (10*3/UL) IN BLOOD AUTOMATED COUNT 141 10*3/uL Low 150-400 [facility] Comment on above: Performed By: #### L [id number] ####[facility] ([facility])[address] [address] RBC (Bld) [#/Vol] 3.99 10*6/uL Low 4.20-5.70 [facility] Comment on above: Performed By: #### L [id number] ####[facility] ([facility])[address] [place] [address] WBC (Bld) [#/Vol] 7.38 10*3/uL Normal 4.00-10.60 [facility] Comment on above: Performed By: #### L [id number] ####[facility] ([facility])[address] [address] COMPREHENSIVE METABOLIC PANE Braulio 06-24-2023 Albumin [Mass/Vol] 4.1 g/dL Normal 3.5-5.7 [facility] Comment on above: Performed By: #### L [id number] ####[facility] ([facility] [place] [address] ALP [Catalytic activity/Vol] 53 U/L Normal 34-104 [facility] Comment on above: Performed By: #### L [id number] ####[facility] ([facility] [place] [address] ALT [Catalytic activity/Vol] 12 U/L Normal 7-52 [facility] Comment on above: Performed By: #### L [id number] ####[facility] (BEAKER)[address] [place] [address] Anion gap [Moles/Vol] 12 mmol/L Normal 7-20 [facility] Comment on above: Performed By: #### L [id number] ####[facility] ([facility])[address] [place] [address] AST [Catalytic activity/Vol] 11 U/L Low 13-39 [facility] Comment on above: Performed By: #### L [id number] ####[facility] ([facility])[address] [place] [address] Bilirubin [Mass/Vol] 0.9 mg/dL Normal 0.3-1.0 [facility] Comment on above: Performed By: #### L [id number] ####[facility] ([facility])[address] [place] [address] Calcium [Mass/Vol] 9.0 mg/dL Normal 8.6-10.3 [facility] Comment on above: Performed By: #### L [id number] ####[facility] ([facility])[address] [place] [address] Chloride [Moles/Vol] 100 mmol/L Normal 98-107 [facility] Comment on above: Performed By: #### L [id number] ####[facility] ([facility])[address] [place] [address] CO2 [Moles/Vol] 26 mmol/L Normal 21-31 [facility] Comment on above: Performed By: #### L [id number] ####[facility] ([facility])[address] [place] [address] Creatinine [Mass/Vol] 0.84 mg/dL Normal 0.70-1.30 [facility] Comment on above: Performed By: #### L [id number] ####[facility] ([facility]AKER)[address] [place] [address] GLOMERULAR FILTRATION RATE ML/MIN/1.73 SQ M.PREDICTED 106.2 mL/min/1.73m*2 Normal >60.0 [facility] Comment on above: Result Comment: [facility]???s estimated glomerular filtration rate (eGFR) will [...] of individuals. Performed By: #### L [id number] ####[facility] ([facility])[address] [place] [address] Glucose [Mass/Vol] 95 mg/dL Normal 70-100 [facility] Comment on above: Performed By: #### L [id number] ####[facility] ([facility])[address] [place] [address] Potassium [Moles/Vol] 3.9 mmol/L Normal 3.5-5.1 [facility] Comment on above: Performed By: #### L [id number] ####[facility] ([facility])[address] [place] [address] Protein [Mass/Vol] 6.5 g/dL Normal 6.0-8.3 [facility] Comment on above: Performed By: #### L [id number] ####[facility] ([facility])[address] [place] [address] Sodium [Moles/Vol] 134 mmol/L Low 136-145 [facility] Comment on above: Performed By: #### L [id number] ####[facility] ([facility])[address] [place] [address] Urea nitrogen [Mass/Vol] 12 mg/dL Normal 7-25 [facility] Comment on above: Performed By: #### L [id number] ####[facility] ([facility])[address] [place] [address] UREA NITROGEN/CREATININE (MASS RATIO) IN SER/PLAS 14.3 Normal [facility] Comment on above: Performed By: #### L [id number] ####[facility] ([facility] [place] [address] Documentationon 06-24-2023 Documentation Normal [facility] HPon 06-24-2023 HP Normal [facility] MAGNESIUMon 06-24-2023 Magnesium [Mass/Vol] 1.9 mg/dL Normal 1.9-2.7 [facility] Comment on above: Performed By: #### L [id number] ####[facility] ([facility] [place] [address] 30on 06-23-2023 30 Normal [facility] 30 [facility] CBC WITH AUTO DIFFERENTIALon 06-23-2023 Basophils (Bld) [#/Vol] 0.04 10*3/uL Normal 0.00-0.20 [facility] Comment on above: Performed By: #### L [id number] ####[facility] ([facility] [place] [address] Basophils/100 WBC (Bld) 0.5 % Normal 0.0-1.0 [facility] Comment on above: Performed By: #### L [id number] ####[facility] ([facility])[address] [place] [address] Eosinophils (Bld) [#/Vol] 0.56 10*3/uL High 0.00-0.50 [facility] Comment on above: Performed By: #### L [id number] ####[facility] ([facility])[address] [place] [address] Eosinophils/100 WBC (Bld) 7.5 % High 0.0-6.0 [facility] Comment on above: Performed By: #### L [id number] ####[facility] ([facility] [place] [address] Erythrocyte distribution width (RBC) [Ratio] 16.7 % High 11.5-15.0 [facility] Comment on above: Performed By: #### L [id number] ####[facility] ([facility])[address] [place] [address] ERYTHROCYTE MEAN CORPUSCULAR HEMOGLOBIN CONCENTRATION (G/DL) BY AUTOMATED 33.2 g/dL Normal 32.0-35.0 [facility] Comment on above: Performed By: #### L [id number] ####[facility] ([facility] [place] [address] Hematocrit (Bld) [Volume fraction] 34.9 % Low 39.0-55.0 [facility] Comment on above: Performed By: #### L [id number] ####[facility] ([facility])[address] [place] [address] Hemoglobin (Bld) [Mass/Vol] 11.6 g/dL Low 13.0-17.0 [facility] Comment on above: Performed By: #### L [id number] ####[facility] ([facility])[address] [place] [address] Immature granulocytes (Bld) [#/Vol] 0.03 10*3/uL Normal 0.00-0.20 [facility] Comment on above: Performed By: #### L [id number] ####[facility] ([facility])[address] [place] [address] Immature granulocytes/100 WBC (Bld) 0.4 % Normal 0.0-1.0 [facility] Comment on above: Performed By: #### L [id number] ####[facility] ([facility])[address] [place] [address] Lymphocytes (Bld) [#/Vol] 1.08 10*3/uL Low 1.20-4.00 [facility] Comment on above: Performed By: #### L [id number] ####[facility] ([facility])[address] [place] [address] Lymphocytes/100 WBC (Bld) 14.5 % Low 20.0-45.0 [facility] Comment on above: Performed By: #### L [id number] ####[facility] ([facility] [place] [address] MCH (RBC) [Entitic mass] 29.6 pg Normal 27.0-33.0 [facility] Comment on above: Performed By: #### L [id number] ####[facility] ([facility])[address] [place] [address] MCV (RBC) [Entitic vol] 89.0 fL Normal 82.0-98.0 [facility] Comment on above: Performed By: #### L [id number] ####[facility] ([facility])[address] [place] [address] Monocytes (Bld) [#/Vol] 0.50 10*3/uL Normal 0.10-1.00 [facility] Comment on above: Performed By: #### L [id number] ####[facility] ([facility])[address] [place] [address] Monocytes/100 WBC (Bld) 6.7 % Normal 5.0-12.0 [facility] Comment on above: Performed By: #### L [id number] ####[facility] ([facility])[address] [place] [address] Neutrophils (Bld) [#/Vol] 5.24 10*3/uL Normal 1.60-7.60 [facility] Comment on above: Performed By: #### L [id number] ####[facility] ([facility])[address] [place] [address] Neutrophils/100 WBC (Bld) 70.4 % Normal 40.0-72.0 [facility] Comment on above: Performed By: #### L [id number] ####[facility] ([facility])[address] [place] [address] NRBC (PER 100 WBCS) BY AUTOMATED COUNT 0.0 % Normal 0 [facility] Comment on above: Performed By: #### L [id number] ####[facility] ([facility])[address] [place] [address] PLATELETS (10*3/UL) IN BLOOD AUTOMATED COUNT 120 10*3/uL Low 150-400 [facility] Comment on above: Performed By: #### L [id number] ####[facility] ([facility])[address] [place] [address] RBC (Bld) [#/Vol] 3.92 10*6/uL Low 4.20-5.70 [facility] Comment on above: Performed By: #### L [id number] ####[facility] ([facility])[address] [place] [address] WBC (Bld) [#/Vol] 7.45 10*3/uL Normal 4.00-10.60 [facility] Comment on above: Performed By: #### L [id number] ####[facility] ([facility])[address] [place] [address] COMPREHENSIVE METABOLIC PANE Braulio 06-23-2023 Albumin [Mass/Vol] 4.1 g/dL Normal 3.5-5.7 [facility] Comment on above: Performed By: #### L [id number] ####[facility] ([facility])[address] [place] [address] ALP [Catalytic activity/Vol] 52 U/L Normal 34-104 [facility] Comment on above: Performed By: #### L [id number] ####[facility] ([facility])[address] [place] [address] ALT [Catalytic activity/Vol] 12 U/L Normal 7-52 [facility] Comment on above: Performed By: #### L [id number] ####[facility] ([facility])[address] [place] [address] Anion gap [Moles/Vol] 9 mmol/L Normal 7-20 [facility] Comment on above: Performed By: #### L [id number] ####[facility] ([facility])[address] [place] [address] AST [Catalytic activity/Vol] 9 U/L Low 13-39 [facility] Comment on above: Performed By: #### L [id number] ####[facility] ([facility])[address] [place] [address] Bilirubin [Mass/Vol] 1.0 mg/dL Normal 0.3-1.0 [facility] Comment on above: Performed By: #### L [id number] ####[facility] ([facility])[address] [place], [place] [address] Calcium [Mass/Vol] 8.7 mg/dL Normal 8.6-10.3 [facility] Comment on above: Performed By: #### L [id number] ####[facility] ([facility])[address] [place], [place] [address] Chloride [Moles/Vol] 101 mmol/L Normal 98-107 [facility] Comment on above: Performed By: #### L [id number] ####[facility] ([facility])[address] [place], [place] [address] CO2 [Moles/Vol] 27 mmol/L Normal 21-31 [facility] Comment on above: Performed By: #### L [id number] ####[facility] ([facility])[address] [place], [place] [address] Creatinine [Mass/Vol] 0.77 mg/dL Normal 0.70-1.30 [facility] Comment on above: Performed By: #### L [id number] ####[facility] ([facility])[address] [place] [address] GLOMERULAR FILTRATION RATE ML/MIN/1.73 SQ M.PREDICTED 109.1 mL/min/1.73m*2 Normal >60.0 [facility] Comment on above: Result Comment: The [facility]???s estimated glomerular filtration rate (eGFR) will [...] of individuals. Performed By: #### L [id number] ####[facility] ([facility])[address] [place] [address] Glucose [Mass/Vol] 106 mg/dL High 70-100 [facility] Comment on above: Performed By: #### L [id number] ####[facility] ([facility])[address] [place] [address] Potassium [Moles/Vol] 4.1 mmol/L Normal 3.5-5.1 [facility] Comment on above: Performed By: #### L [id number] ####[facility] ([facility])[address] [place] [address] Protein [Mass/Vol] 6.2 g/dL Normal 6.0-8.3 [facility] Comment on above: Performed By: #### L [id number] ####[facility] ([facility])[address] [place] [address] Sodium [Moles/Vol] 133 mmol/L Low 136-145 [facility] Comment on above: Performed By: #### L [id number] ####[facility] ([facility])[address] [place] [address] Urea nitrogen [Mass/Vol] 13 mg/dL Normal 7-25 [facility] Comment on above: Performed By: #### L [id number] ####[facility] ([facility])[address] [place] [address] UREA NITROGEN/CREATININE (MASS RATIO) IN SER/PLAS 16.9 [facility] Comment on above: Performed By: #### L [id number] ####[facility] ([facility])[address] [place] [address] CONSULTon 06-23-2023 CONSULT [facility] 30on 06-22-2023 30 [facility] 30 Normal [facility] APTTon 06-22-2023 ACTIVATED PARTIAL THROMBOPLASTIN TIME IN PPP BY COAGULATION ASSAY 31.2 Seconds Normal 25.0-35.0 [facility] Comment on above: Result Comment: Clin ical significance of the APTT is questionable in the presence of heparin. Performed By: #### L [id number] ####[facility] ([facility])[address] [place] [address] CBC WITH AUTO DIFFERENTIALon 06-22-2023 Basophils (Bld) [#/Vol] 0.03 10*3/uL Normal 0.00-0.20 [facility] Comment on above: Performed By: #### L [id number] ####[facility] ([facility])[address] [place] [address] Basophils/100 WBC (Bld) 0.4 % Normal 0.0-1.0 [facility] Comment on above: Performed By: #### L [id number] ####[facility] ([facility])[address] [place] [address] Eosinophils (Bld) [#/Vol] 0.39 10*3/uL Normal 0.00-0.50 [facility] Comment on above: Performed By: #### L [id number] ####[facility] ([facility])[address] [place] [address] Eosinophils/100 WBC (Bld) 5.0 % Normal 0.0-6.0 [facility] Comment on above: Performed By: #### L [id number] ####[facility] ([facility])[address] [facility] [address] Erythrocyte distribution width (RBC) [Ratio] 16.3 % High 11.5-15.0 [facility] Comment on above: Performed By: #### L [id number] ####[facility] ([facility])[address] [place] [address] ERYTHROCYTE MEAN CORPUSCULAR HEMOGLOBIN CONCENTRATION (G/DL) BY AUTOMATED 33.1 g/dL Normal 32.0-35.0 [facility] Comment on above: Performed By: #### L [id number] ####[facility] ([facility])[address] [place] [address] Hematocrit (Bld) [Volume fraction] 35.6 % Low 39.0-55.0 [facility] Comment on above: Performed By: #### L [id number] ####[facility] ([facility])[address] [place] [address] Hemoglobin (Bld) [Mass/Vol] 11.8 g/dL Low 13.0-17.0 [facility] Comment on above: Performed By: #### L [id number] ####[facility] ([facility])[address] [place] [address] Immature granulocytes (Bld) [#/Vol] 0.02 10*3/uL Normal 0.00-0.20 [facility] Comment on above: Performed By: #### L [id number] ####[facility] ([facility])[address] [place] [address] Immature granulocytes/100 WBC (Bld) 0.3 % Normal 0.0-1.0 [facility] Comment on above: Performed By: #### L [id number] ####[facility] ([facility])[address] [place] [address] Lymphocytes (Bld) [#/Vol] 0.72 10*3/uL Low 1.20-4.00 [facility] Comment on above: Performed By: #### L [id number] ####[facility] ([facility])[address] [place] [address] Lymphocytes/100 WBC (Bld) 9.2 % Low 20.0-45.0 [facility] Comment on above: Performed By: #### L [id number] ####[facility] ([facility])[address] [place] [address] MCH (RBC) [Entitic mass] 29.0 pg Normal 27.0-33.0 [facility] Comment on above: Performed By: #### L [id number] ####[facility] ([facility])[address] [place] [address] MCV (RBC) [Entitic vol] 87.5 fL Normal 82.0-98.0 [facility] Comment on above: Performed By: #### L [id number] ####[facility] ([facility])[address] [place] [address] Monocytes (Bld) [#/Vol] 0.41 10*3/uL Normal 0.10-1.00 [facility] Comment on above: Performed By: #### L [id number] ####[facility] ([facility])[address] [place] [address] Monocytes/100 WBC (Bld) 5.2 % Normal 5.0-12.0 [facility] Comment on above: Performed By: #### L [id number] ####[facility] ([facility])[address] [place] [address] Neutrophils (Bld) [#/Vol] 6.24 10*3/uL Normal 1.60-7.60 [facility] Comment on above: Performed By: #### L [id number] ####[facility] ([facility])[address] [place] [address] Neutrophils/100 WBC (Bld) 79.9 % High 40.0-72.0 [facility] Comment on above: Performed By: #### L [id number] ####[facility] ([facility])[address] [place] [address] NRBC (PER 100 WBCS) BY AUTOMATED COUNT 0.0 % Normal 0 [facility] Comment on above: Performed By: #### L [id number] ####[facility] ([facility])[address] [place] [address] PLATELETS (10*3/UL) IN BLOOD AUTOMATED COUNT 110 10*3/uL Low 150-400 [facility] Comment on above: Performed By: #### L [id number] ####[facility] [place] [address] RBC (Bld) [#/Vol] 4.07 10*6/uL Low 4.20-5.70 [facility] Comment on above: Performed By: #### L [id number] ####[facility] ([facility])[address] [place] [address] WBC (Bld) [#/Vol] 7.81 10*3/uL Normal 4.00-10.60 [facility] Comment on above: Performed By: #### L [id number] ####[facility] ([facility])[address] [place] [address] CKon 06-22-2023 CREATINE KINASE (U/L) IN SER/PLAS 22.0 U/L Low 30.0-223.0 [facility] Comment on above: Performed By: #### L [id number] ####[facility] ([facility])[address] [place] [address] COMPREHENSIVE METABOLIC PANE Braulio 06-22-2023 Albumin [Mass/Vol] 4.0 g/dL Normal 3.5-5.7 [facility] Comment on above: Performed By: #### L [id number] ####[facility] ([facility])[address] [place] [address] ALP [Catalytic activity/Vol] 52 U/L Normal 34-104 [facility] Comment on above: Performed By: #### L [id number] ####[facility] ([facility] [place] [address] ALT [Catalytic activity/Vol] 13 U/L Normal 7-52 [facility] Comment on above: Performed By: #### L [id number] ####[facility] ([facility])[address] [place] [address] Anion gap [Moles/Vol] 12 mmol/L Normal 7-20 [facility] Comment on above: Performed By: #### L [id number] ####[facility] ([facility])[address] [place] [address] AST [Catalytic activity/Vol] 9 U/L Low 13-39 [facility] Comment on above: Performed By: #### L [id number] ####[facility] ([facility])[address] [place] [address] Bilirubin [Mass/Vol] 1.1 mg/dL High 0.3-1.0 [facility] Comment on above: Performed By: #### L [id number] ####[facility] ([facility])[address] [place] [address] Calcium [Mass/Vol] 9.1 mg/dL Normal 8.6-10.3 [facility] Comment on above: Performed By: #### L [id number] ####[facility] ([facility])[address] [place] [address] Chloride [Moles/Vol] 100 mmol/L Normal 98-107 [facility] Comment on above: Performed By: #### L [id number] ####[facility] ([facility])[address] [place] [address] CO2 [Moles/Vol] 26 mmol/L Normal 21-31 [facility] Comment on above: Performed By: #### L [id number] ####[facility] ([facility])[address] [place] [address] Creatinine [Mass/Vol] 0.82 mg/dL Normal 0.70-1.30 [facility] Comment on above: Performed By: #### L [id number] ####[facility] ([facility])[address] [place] [address] GLOMERULAR FILTRATION RATE ML/MIN/1.73 SQ M.PREDICTED 107.0 mL/min/1.73m*2 Normal >60.0 [facility] Comment on above: Result Comment: The [facility]???s estimated glomerular filtration rate (eGFR) will [...] of individuals. Performed By: #### L [id number] ####[facility] ([facility])[address] [place] [address] Glucose [Mass/Vol] 161 mg/dL High 70-100 [facility] Comment on above: Performed By: #### L [id number] ####[facility] ([facility])[address] [place] [address] Potassium [Moles/Vol] 4.0 mmol/L Normal 3.5-5.1 [facility] Comment on above: Performed By: #### L [id number] ####[facility] ([facility])[address] [place] [address] Protein [Mass/Vol] 6.3 g/dL Normal 6.0-8.3 [facility] Comment on above: Performed By: #### L [id number] ####[facility] ([facility])[address] [facility] [address] Sodium [Moles/Vol] 134 mmol/L Low 136-145 [facility] Comment on above: Performed By: #### L [id number] ####[facility] ([facility])[address] [place] [address] Urea nitrogen [Mass/Vol] 14 mg/dL Normal 7-25 [facility] Comment on above: Performed By: #### L [id number] ####[facility] ([facility])[address] [facility] [place] [address] UREA NITROGEN/CREATININE (MASS RATIO) IN SER/PLAS 17.1 [facility] Comment on above: Performed By: #### L [id number] ####[facility] ([facility])[address] [place] [address] CONSULTon 06-22-2023 CONSULT Normal [facility] MAGNESIUMon 06-22-2023 Magnesium [Mass/Vol] 1.8 mg/dL Low 1.9-2.7 [facility] Comment on above: Performed By: #### L [id number] ####[facility] ([facility])[address] [place] [address] PROTIME-INRon 06-22-2023 INR IN PPP BY COAGULATION ASSAY 1.05 Normal 0.90-1.10 [facility] Comment on above: Result Comment: ACCC [...] CHEST 1995;[id number]. Performed By: #### L [id number] ####[facility] ([facility])[address] [place] [address] PROTHROMBIN TIME (PT) IN PPP BY COAGULATION ASSAY 13.7 Seconds Normal 12.3-14.8 [facility] Comment on above: Performed By: #### L [id number] ####[facility] ([facility])[address] [place] [address] 30on 06-21-2023 30 Normal [facility] 30 Normal [facility] 30 The patient is Moder ately Unstable - Medium risk of patient condition declining or worsening The patient's goals for the shift include COMFORT The clinical goals for the shift include VSS Normal [facility] 30 Normal [facility] ANESon 03-22-2024 ANES Normal [facility] B-TYPE NATRIURETIC PEPTIDEon 06-21-2023 Natriuretic peptide B (Bld) [Mass/Vol] 147 pg/mL High 0-100 [facility] Comment on above: Performed By: #### L [id number] ####[facility] ([facility])[address] [place] [address] BLOOD CULTUREon 06-21-2023 Bacteria identified Cx Nom (Bld) No growth at 5 days Normal [facility] Comment on above: Order Comment: From a different site than #1. Performed By: #### L [id number] ####[facility] ([facility])[address] [place] [address] C-REACTIVE PROTEINon 024 C REACTIVE PROTEIN (MG/L) IN SER/PLAS 23.3 mg/L High 0.0-7.0 [facility] Comment on above: Performed By: #### L [id number] ####[facility] ([facility])[address] [place] [address] CBC WITH AUTO DIFFERENTIALon 06-21-2023 Basophils (Bld) [#/Vol] 0.04 10*3/uL Normal 0.00-0.20 [facility] Comment on above: Performed By: #### L [id number] ####[facility] [place] [address] Basophils/100 WBC (Bld) 0.4 % Normal 0.0-1.0 [facility] Comment on above: Performed By: #### L [id number] ####[facility] ([facility])[address] [place] [address] Eosinophils (Bld) [#/Vol] 0.24 10*3/uL Normal 0.00-0.50 [facility] Comment on above: Performed By: #### L [id number] ####[facility] [place] [address] Eosinophils/100 WBC (Bld) 2.7 % Normal 0.0-6.0 [facility] Comment on above: Performed By: #### L [id number] ####[facility] ([facility])[address] [place] [address] Erythrocyte distribution width (RBC) [Ratio] 16.2 % High 11.5-15.0 [facility] Comment on above: Performed By: #### L [id number] ####[facility] ([facility])[address] [place] [address] ERYTHROCYTE MEAN CORPUSCULAR HEMOGLOBIN CONCENTRATION (G/DL) BY AUTOMATED 33.1 g/dL Normal 32.0-35.0 [facility] Comment on above: Performed By: #### L [id number] ####[facility] ([facility])[address] [place] [address] Hematocrit (Bld) [Volume fraction] 35.6 % Low 39.0-55.0 [facility] Comment on above: Performed By: #### L [id number] ####[facility] ([facility])[address] [place] [address] Hemoglobin (Bld) [Mass/Vol] 11.8 g/dL Low 13.0-17.0 [facility] Comment on above: Performed By: #### L [id number] ####[facility] ([facility])[address] [place] [address] Immature granulocytes (Bld) [#/Vol] 0.03 10*3/uL Normal 0.00-0.20 [facility] Comment on above: Performed By: #### L [id number] ####[facility] ([facility])[address] [place]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 (Bld) [Pure # fraction] 0.7 E9/L Normal 0.2-1.0 [facility] Comment on above: Order Comment: Order Added by Discern Expert. Performed By: #### 2 534081, 6186469, 6499651 #### [facility] [address] [place] [address] Neutrophils/100 WBC (Bld) 67.8 % Normal 36.0-75.0 [facility] Comment on above: Order Comment: Order Added by Discern Expert. Performed By: #### 2 913228, 5253441, 4927013 #### [facility] [address] [place] [address] Neutrophils/Leukocyt es Auto (Bld) [Pure # fraction] 4.8 E9/L Normal 2.0-7.5 [facility] Comment on above: Order Comment: Order Added by Discern Expert. Performed By: #### 2 940517, 6935280, 1855418 #### [facility] [address] [place] [address] CBC w/ Auto Diffon 3 Erythrocyte distribution width (RBC) [Ratio] 13.1 % Normal 10.9-14.2 [facility] Comment on above: Performed By: #### 2 266338, 5535736, 9621055 #### [facility] [address] [place] [address] Hematocrit (Bld) [Volume fraction] 39.2 % Normal 37.7-49.0 [facility] Comment on above: Performed By: #### 2 554629, 5805777, 2156274 #### [facility] [address] [place] [address] Hemoglobin (Bld) [Mass/Vol] 13.4 g/dL Low 13.5-17.5 [facility] Comment on above: Performed By: #### 2 864924, 3357241, 2038769 #### [facility] [address] [place] [address] MCH (RBC) [Entitic mass] 29.0 pg Normal 27.0-34.0 [facility] Comment on above: Performed By: #### 2 936635, 9139565, 5384201 #### [facility] [address] [place] [address] MCHC (RBC) [Mass/Vol] 34.3 g/dL Normal 31.4-36.0 [facility] Comment on above: Performed By: #### 2 548211, 7734772, 8827809 #### [facility] [address] [place] [address] MCV (RBC) [Entitic vol] 84.6 fL Normal 80.0-100.0 [facility] Comment on above: Performed By: #### 2 658364, 2080364, 1246244 #### [facility] [address] [place] [address] Platelet mean volume (Bld) [Entitic vol] 7.7 fL Normal 6.4-10.8 [facility] Comment on above: Performed By: #### 2 586710, 7961809, 4300221 #### [facility] [address] [place] [address] Platelets (Bld) [#/Vol] 261.0 E9/L Normal 150.0-500.0 [facility] Comment on above: Performed By: #### 2 397069, 9368784, 2254661 #### [facility] [address] [place] [address] 12791 RBC (Bld) [#/Vol] 4.6 E12/L Normal 4.3-5.9 [facility] Comment on above: Performed By: #### 2 597957, 9142857, 6276913 #### [facility] [address] [place] [address]242 WBC corrected for nucl RBC Auto (Bld) [#/Vol] 7.1 E9/L Normal 4.0-11.0 [facility] Comment on above: Performed By: #### 2 095678, 7492273, 2171430 #### [facility] [address] [place], [place] [address] CHEMISTRYOrdered By: SYSTEM SYSTEM on 03-07-2023 CRP [Mass/Vol] 1.8 mg/dL Normal <=1.9mg/dL [facility] Remis ol CRPon 03-07-2023 CRP [Mass/Vol] 1.8 mg/dL Normal <=1.9 [facility] Comment on above: Performed By: #### 2 855124, 9489811, 9857931 #### [facility] [address] [place] [address] Consent for Treatmenton Consent for Treatment [id number]#1.00TIFF Normal [facility] Erythrocyte Sedimentation Ra aniya 03-07-2023 ESR (Bld) [Velocity] 9 mm/h Normal 0-19 [facility] Comment on above: Result Comment: PERF ORMED BY: [place] [address] PATHOLOGIST HOP SORTER BARI GREENE M.D. Performed By: #### E #### [facility] [address] Erythrocyte sedimentation ra te by Photometric methodOrdered By: Huan Cowan on 03-07-2023 ESR Photometric method (Bld) [Velocity] 9 mm/hr 0-19 [facility] HEMATOLOGYOrdered By: SYSTEM SYSTEM on 03-07-2023 Basophils/100 [...] 7.1 E9/L Normal 4.0 - 11.0 E9/L [facility] HemeAutoSS Lab Miscellaneous-LCon 03-07 Test Code 028412 Invalid Interpretation Code [facility] Comment on above: Performed By: #### 1 [id number] #### [facility] [address] [place] [address] Test Code TO [facility] Invalid Interpretation Code [facility] Comment on above: Performed By: #### 1 [id number] #### [facility] [address] [place] [address] Test Name [place] 6 Invalid Interpretation Code [facility] Comment on above: Performed By: #### 1 [id number] #### [facility] [address] [place] [address] Test Name SED RATE/FIREAL Invalid Interpretation Code [facility] Comment on above: Performed By: #### 1 [id number] #### [facility] [address] [place] [address] Physician Orderon 03-07-2023 Physician Order [id number]#1.00TIFF Normal [facility] Reference Laboratory Testing Ordered By: Yasmeen Ca on 03-07-2023 Sodium [Moles/Vol] 284478 mmol/L Invalid Interpretation Code [facility] SendOuts Test Code TO [facility] Invalid Interpretation Code [facility] SendOutsSS Test Name SED RATE/FIREAL Invalid Interpretation Code [facility] SendOutsSS Test Name [place] 6 Invalid Interpretation Code [facility] SendOutsSS Operative Reporton Operative Report [id number]#1.00TIFF Normal [facility] Formson 02-27-2023 Forms [id number]#1.00TIFF Normal [facility] Provider Letteron 02-27-2023 Provider Letter (Inserted Image. Jessica ble to display) [address] [place] [address] February 27, 2023 NEHAL BAIG [address] [place] [address] : [address] Mazariegos, The above patient has been evaluated at your request for preoperative clearance. After assessment of available pertinent labs and diagnostic tests, I feel this patient is medically optimized for surgery. Final discretion of whether the patient is cleared for surgery remains up to the surgeon/anesthesiologist. Thank you, MOSHE Mota Normal [facility] Auto Diffon 11-28-2023 Basophils/100 WBC (Bld) 0.6 % Normal 0.0-2.0 [facility] Comment on above: Order Comment: Order Added by Discern Expert. Performed By: #### 2 141473, 7906136 ####[address] [address] Basophils/Leukocytes Auto (Bld) [Pure # fraction] 0.1 E9/L Normal 0.0-0.2 [facility] Comment on above: Order Comment: Order Added by Discern Expert. Performed By: #### 2 691632, 8112879 ####[address] [address] Eosinophils/100 WBC (Bld) 2.3 % Normal 0.0-8.0 [facility] Comment on above: Order Comment: Order Added by Discern Expert. Performed By: #### 2 049019, 4108791 ####[address] [address] Eosinophils/Leukocyt es Auto (Bld) [Pure # fraction] 0.2 E9/L Normal 0.0-0.5 [facility] Comment on above: Order Comment: Order Added by Discern Expert. Performed By: #### 2 352167, 3232293 ####[address] [address] Lymphocytes/100 WBC (Bld) 16.2 % Normal 14.0-50.0 [facility] Comment on above: Order Comment: Order Added by Discern Expert. Performed By: #### 2 103872, 0258410 ####[address] [address] Lymphocytes/Leukocyt es Auto (Bld) [Pure # fraction] 1.5 E9/L Normal 1.0-4.0 [facility] Comment on above: Order Comment: Order Added by Discern Expert. Performed By: #### 2 544056, 2186480 ####[address] [address] Monocytes/100 WBC (Bld) 6.8 % Normal 4.0-14.0 [facility] Comment on above: Order Comment: Order Added by Discern Expert. Performed By: #### 2 142937, 3923541 ####[address] [address] Monocytes/Leukocytes Auto (Bld) [Pure # fraction] 0.6 E9/L Normal 0.2-1.0 [facility] Comment on above: Order Comment: Order Added by Discern Expert. Performed By: #### 2 830897, 8742756 ####[address] [address] Neutrophils/100 WBC (Bld) 74.1 % Normal 36.0-75.0 [facility] Comment on above: Order Comment: Order Added by Discern Expert. Performed By: #### 2 539932, 6683085 ####[address] [address] Neutrophils/Leukocyt es Auto (Bld) [Pure # fraction] 6.6 E9/L Normal 2.0-7.5 [facility] Comment on above: Order Comment: Order Added by Discern Expert. Performed By: #### 2 871334, 3484276 ####[address] [address] CBC w/ Auto Diffon 3 Erythrocyte distribution width (RBC) [Ratio] 13.6 % Normal 10.9-14.2 [facility] Comment on above: Performed By: #### 2 185363, 7814489 ####[address] [address] Hematocrit (Bld) [Volume fraction] 40.5 % Normal 37.7-49.0 [facility] Comment on above: Performed By: #### 2 769373, 3571668 ####[address] [address] Hemoglobin (Bld) [Mass/Vol] 13.9 g/dL Normal 13.5-17.5 [facility] Comment on above: Performed By: #### 2 706468, 0957612 ####[place] [address] [place] [address] MCH (RBC) [Entitic mass] 28.9 pg Normal 27.0-34.0 [facility] Comment on above: Performed By: #### 2 307412, 9851276 ####[address] [address] MCHC (RBC) [Mass/Vol] 34.3 g/dL Normal 31.4-36.0 [facility] Comment on above: Performed By: #### 2 686128, 0723899 ####[address] [address] MCV (RBC) [Entitic vol] 84.2 fL Normal 80.0-100.0 [facility] Comment on above: Performed By: #### 2 491386, 1044485 ####[place] [address] Platelet mean volume (Bld) [Entitic vol] 7.7 fL Normal 6.4-10.8 [facility] Comment on above: Performed By: #### 2 666453, 2596331 ####[address] [address] Platelets (Bld) [#/Vol] 244.0 E9/L Normal 150.0-500.0 [facility] Comment on above: Performed By: #### 2 955705, 1954391 ####[address] [address] RBC (Bld) [#/Vol] 4.8 E12/L Normal 4.3-5.9 [facility] Comment on above: Performed By: #### 2 407454, 7498148 ####[address] [address] WBC corrected for nucl RBC Auto (Bld) [#/Vol] 8.9 E9/L Normal 4.0-11.0 [facility] Comment on above: Performed By: #### 2 982213, 7154724 ####[address] [place] [address] Consent for Treatmenton 01-31 Consent for Treatment [id number]#1.00TIFF Normal [facility] HEMATOLOGYOrdered By: SYSTEM SYSTEM on 02-26-2023 Basophils/100 [...] 28.9 pg Normal 27.0 - 34.0 pg [facility] HemeAutoSS MCHC (RBC) [Mass/Vol] 34.3 g/dL Normal 31.4 - 36.0 gm/dL [facility] HemeAutoSS MCV (RBC) [Entitic vol] 84.2 fL Normal 80.0 - 100.0 fL [facility] HemeAutoSS Platelet mean volume (Bld) [Entitic vol] 7.7 fL Normal 6.4 - 10.8 fL [facility] HemeAutoSS Platelets (Bld) [#/Vol] 244.0 E9/L Normal 150.0 - 500.0 E9/L [facility] HemeAutoSS RBC (Bld) [#/Vol] 4.8 E12/L Normal 4.3 - 5.9 E12/L [facility] HemeAutoSS WBC corrected for nucl RBC Auto (Bld) [#/Vol] 8.9 E9/L Normal 4.0 - 11.0 E9/L [facility] HemeAutoSS Physician Orderon 02-26-2023 Physician Order [id number]#1.00TIFF Normal [facility] CHEMISTRYOrdered By: SYSTEM SYSTEM on 02-25-2023 CRP [Mass/Vol] 6.7 mg/dL High <=1.9mg/dL [facility] Remis ol CRPon 02-25-2023 CRP [Mass/Vol] 6.7 mg/dL High <=1.9 [facility] Comment on above: Performed By: #### 2 057902 ####[facility] [address] [place] [address] Consent for Treatmenton 01-31 Consent for Treatment [id number]#1.00TIFF Normal [facility] ED Note-Physicianon 02-26-20 ED Note-Physician [id number]#1.00TIFF Normal [facility] Lab Miscellaneous-LCon 02-25 Test Code 594507 Invalid Interpretation Code [facility] Comment on above: Performed By: #### 1 [id number] ####[facility] [address] [place] [address] Test Name Interleukin-6 Invalid Interpretation Code [facility] Comment on above: Performed By: #### 1 [id number] ####[facility] [address] [place] [address] Physician Orderon 02-25-2023 Physician Order [id number]#1.00TIFF Normal [facility] RAD - MISCon 02-25-2023 RAD - MISC [id number]#1.00TIFF Normal [facility] Reference Laboratory Testing Ordered By: Elysia Oseguera on 02-25-2023 Sodium [Moles/Vol] 068974 mmol/L Invalid Interpretation Code [facility] SendOuts Test Name Interleukin-6 Invalid Interpretation Code [facility] SendOutsSS Consultation Noteon 02-20-20 Consultation Note [id number]#1.00TIFF Normal [facility] Operative Reporton 3 Operative Report [id number]#1.00TIFF Normal [facility] Consultation Noteon 01-30-20 Consultation Note [id number]#1.00TIFF [facility] RAD - MRI Reporton 3 RAD - MRI Report [id number]#1.00TIFF Normal [facility] XR cerv spine AP/LAT/FLX/EXT on 01-17-2023 XR cerv spine AP/LAT/FLX/EXT [address] [address] XRay Report Signed Patient: Nehal Baig MR#: [id number] 8 : 1970 Acct:[id number] Age/Sex: 52 / M ADM Date: 01/17/23 Loc: XD Room: Type: [facility] CLI Attending Dr: Siri Quezada [...] Khadijah Roach M.D.01/17/2023 4:22 PM Dictation Location: [place] [address] Transcribed By: [facility] 01/17/23 162 Dictated By: Khadijah Roach MD 01/17/231619 Signed By: 01/17/231621 Normal [facility] XR lumbar spine 6V w bending on 01-17-2023 XR lumbar spine 6V w bending [facility] Main [place] [address] [place] [address] XRay Report Signed Patient: Nehal Baig MR#: [id number] 8 : 1970 Acct:[id number] Age/Sex: 52 / M ADM Date: 01/17/23 Loc: XD Room: Type: [facility] Attending Dr: Siri Quezada NP-C Copies to: [...] Christopher Cedeno M.D.01/17/2023 12:51 PM Dictation Location: [place] [address] Transcribed By: [facility] 01/17/23 1251 Dictated By: Christopher Cedeno DO 01/17/23 1246 Signed By: 01/17/23 1251 Normal [facility] RAD - MISCon 01-16-2023 RAD - MISC [id number]#1.00TIFF Normal [facility] - MISC [id number]#1.00TIFF Normal [facility] Lab Reportson 01-14-2023 Lab Reports [id number]#1.00TIFF Normal [facility] Lab Reports [id number]#1.00TIFF Normal [facility] Retail - Clinical Noteon Retail - Clinical Note [id number]#1.00TIFF Normal [facility] Ambulatory Visit Summaryon 1 Ambulatory [...] Depression Obesity shoulder pain sleep disorder Normal [facility] XR ankle LT min 3V*on 2022 XR ankle LT min 3V* [facility] [employer] Other XR ankle LT min 3V* [facility] Main [facility] [employer] Other XR ankle LT min 3V* [facility] [employer] Other XR ankle LT min 3V* [place] [address] [employer] [facility] [employer] Other XR ankle LT min 3V* XRay Report [facility] [employer] Other XR ankle LT min 3V* Signed [employer] Other XR ankle LT min 3V* Patient: Nehal Baig MR#: [id number] [employer] Other XR ankle LT min 3V* 8 [employer] Other XR ankle LT min 3V* : 1970 Acct:[id number] [employer] Other XR ankle LT min 3V* Age/Sex: 52 / M ADM Date: 12/16/22 [employer] Other XR ankle LT min 3V* Loc: XDUCLY Room: pe: REG CLI [employer] Other XR ankle LT min 3V* Attending Dr: Kelly MALONEY [employer] Other XR ankle LT min 3V* Copies to: HAIDER Larson [employer] Other XR ankle LT min 3V* Ordering Provider: HAIDER Rehman [employer] Other XR ankle LT min 3V* Date of Service: 12/16/22 [employer] Other XR ankle LT min 3V* [address]) XR/XR ankle LT min 3V*: LEFT ANKLE PAIN [employer] Other XR ankle LT min 3V* XR ankle LT min 3V* 12/16/2022 10:31 AM [employer] Other XR ankle LT min 3V* SIGNS AND SYMPTOMS: Pain and swelling of the posterior left ankle [employer] Other XR ankle LT min 3V* PROTOCOL: Frontal, lateral, and oblique radiographs of the left ankle [employer] Other XR ankle LT min 3V* COMPARISON: None [employer] Other XR ankle LT min 3V* FINDINGS: [employer] Other XR ankle LT min 3V* The ankle mortise is preserved. There is no evidence of fracture or dislocation. There is Achilles [employer] Other XR ankle LT min 3V* surface calcaneal spurring. There is soft tissue swelling diffusely which is nonspecific. [employer] Other XR ankle LT min 3V* X R/XR ankle LT min 3V* [employer] Other XR ankle LT min 3V* IMPRESSION: [facility] [employer] Other XR ankle LT min 3V* No fracture. [facility] [employer] Other XR ankle LT min 3V* Diffuse soft tissue swelling. [employer] Other XR ankle LT min 3V* There is Achilles castano rface calcaneal spurring. [employer] Other XR ankle LT min 3V* Impression dictated by: Nehal Horner M.D.12/16/2022 10:42 AM [employer] Other XR ankle LT min 3V* Dictation Location: [place] [address] [employer] Other XR ankle LT min 3V* Transcribed By: MARLO 12/16/22 1042 [employer] Other XR ankle LT min 3V* Dictated By: Nehal Horner II, MD 12/16/22 1042 [employer] Other XR ankle LT min 3V* Signed By: [employer] Other XR ankle LT min 3V* 12/16/22 1042 No rt [employer] Other XR ankle LT min 3V* [facility] Main [place] [address] [place] [address] XRay Report Signed Patient: Nehal Baig MR#: [id number] 8 : 1970 Acct:[id number] Age/Sex: 52 / M ADM Date: 12/16/22 Loc: [facility] Room: Type: [facility] Attending Dr: Kelly MALONEY Copies to: HAIDER [...] Nehal Horner M.D.12/16/2022 10:42 AM Dictation Location: [place] [address] Transcribed By: [facility] 12/16/22 1042 Dictated By: Nehal Horner II, MD 12/16/22 1042 Signed By: 12/16/22 1042 Normal [facility] -- NEHAL BAIG ([id number]) 1970 M Date Time Provider Department 05/28/22 SALOME AGUILLON [facility] During your visit today, we recorded [...] [R80.9] Order(s):PROTEIN CREATININE RATIO [SQPRATIO] Order #: [id number] FUTURE Prescriptions as of 05/29/2022 - atorvastatin [...] Status:Closed by VIVEK RICO on 05/28/22 Normal [facility] KIDNEY/BLADDERon 05-26-19 KIDNEY/BLADDER * * *Final Report* * * DATE OF EXAM: May 26 2022 2:34PM [facility] 1055 - US KIDNEY/BLADDER / PROCEDURE [...] No evidence of renal calculus or hydronephrosis. Marketing Services Rep: GREGORY Transcribe Date/Time: May 26 2022 2:43P Dictated by : BOB RODRIGUEZ MD This examination was interpreted and the report reviewed and electronically signed by: BOB RODRIGUEZ MD on May 27 2022 5:50AM EST [id number] [facility] ) -- NEHAL BAIG ([id number]) 1970 M Date Time Provider Department 05/21/22 5:20 PM SALOEM AGUILLON [facility] During your visit today, we recorded the following information about you: Pulse Blood pressure Weight Height 89/minute 133/67 180.5 kg 1.854 m Salome Aguillon APRN.BLOCKING MACHINE TENDER 05/21/2022 6:45 PM Addendum This note was [...] 2020. This is a workers comp issue-through [facility]/Dr. Cowan. 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 Shoulder replacement surgery left 08/23/24. 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 ENDO/WT: -needs f/up endo wt managmeent Dr. Jorge -needs f/up classification and treatment director Tarsha Jamison -needs appt with Dr. Man/Agustina-endo wt management team [phone] Will review at upcoming appointment. Protein noted in urine. Vitamin D is low at 30.7-recommend dfgp-kqx-zktpapc vitamin D3 1000 units daily. Cholesterol is elevated, worsening when compared to prior-we will discuss increasing cholesterol medication. Kidney, liver, electrolytes look fine. Thyroid lab looks fine. PSA/prostate lab looks fine. A1c is stable at 5.4. Blood count looks fine. Written by Salome Aguillon APRN.BLOCKING MACHINE TENDER on 05/21/2022 3:44 PM EST Last 2 [...] Negative Ketones, Urine Negative Trace (A) Specific [place], Ur 1.005 - 1.030 >=1.030 (H) Hemoglobin/Blood,Ur [...] hyperlipidemia Obst (more content not included)... Normal [facility] 25(OH)D3 SerPl-ncon 2022 25-hydroxyvitamin D3 [Mass/Vol] 30.7 ng/mL Low 31.0-80.0 [facility] Comment on above: Order Comment: Speci men Type: BLOOD SPECIMEN Ordering Facility: [facility] Address: [address] [place] [id number] Result Comment: Clas sification of 25 [place] Vitamin D status: Deficiency/Insufficiency: < or = 30 ng/ml. Sufficiency/Optimal Levels: 31-80 ng/mL Toxicity: > 100 ng/mL. Test performed by chemiluminescent immunoassay. Performed By: #### 1 989-3 #### [facility] CLIA [id number] [address] [place] [address] OF [facility] CBC panel Auto (Bld)on 05-19 Erythrocyte distribution width (RBC) [Ratio] 12.9 % Normal 11.5-15.0 [facility] Comment on above: Order Comment: Speci men Type: URINE SPECIMEN Ordering Facility: [facility] Address: [address] Performed By: #### L [id number] #### [facility] CLIA [id number] [address] [place] [address] [place] OF [facility] Hematocrit (Bld) [Volume fraction] 42.7 % Normal 39.0-51.0 [facility] Comment on above: Order Comment: Speci men Type: URINE SPECIMEN Ordering Facility: [facility] Address: [address] Performed By: #### L [id number] #### [facility] CLIA [id number] [address] [place] [address] STATES OF [facility] Hemoglobin (Bld) [Mass/Vol] 14.5 g/dL Normal 13.0-17.0 [facility] Comment on above: Order Comment: Speci men Type: URINE SPECIMEN Ordering Facility: [facility] Address: [address] [place] [address] Performed By: #### L [id number] #### [facility] CLIA [id number] [address] [place] [address] MCH (RBC) [Entitic mass] 29.2 pg Normal 26.0-34.0 [facility] Comment on above: Order Comment: Speci men Type: URINE SPECIMEN Ordering Facility: [facility] Address: [address] [place] [address] Performed By: #### L [id number] #### [facility] CLIA [id number] [address] [place] [place] [address] STATES [facility] MCHC (RBC) [Mass/Vol] 34.0 g/dL Normal 30.5-36.0 [facility] Comment on above: Order Comment: Speci men Type: URINE SPECIMEN Ordering Facility: [facility] Address: [address] [place] [address] Performed By: #### L [id number] #### [facility] CLIA [id number] [address] [place] [address] [place] MCV (RBC) [Entitic vol] 85.9 fL Normal 80.0-100.0 [facility] Comment on above: Order Comment: Speci men Type: URINE SPECIMEN Ordering Facility: [facility] Address: [address] [place], [place] [address] Performed By: #### L [id number] #### [facility] CLIA [id number] [address] [place] [place] [address] [place] Nucleated RBC (Bld) [#/Vol] 10*3/uL Normal <0.01 [facility] Comment on above: Order Comment: Speci men Type: URINE SPECIMEN Ordering Facility: [facility] Address: [address] [place] [address] Performed By: #### L [id number] #### [facility] CLIA [id number] [address] [place] [address] [place] Platelet mean volume (Bld) [Entitic vol] 10.2 fL Normal 9.0-12.7 [facility] Comment on above: Order Comment: Speci men Type: URINE SPECIMEN Ordering Facility: [facility] Address: [address] [place] [address] Performed By: #### L [id number] #### [facility] CLIA [id number] [address] [place] [address] [place] Platelets (Bld) [#/Vol] 189 10*3/uL Normal 150-400 [facility] Comment on above: Order Comment: Speci men Type: URINE SPECIMEN Ordering Facility: [facility] Address: [address] [place] [address] Performed By: #### L [id number] #### [facility] CLIA [id number] [address] [place] [address] [place] RBC (Bld) [#/Vol] 4.97 10*6/uL Normal 4.20-6.00 [facility] Comment on above: Order Comment: Speci men Type: URINE SPECIMEN Ordering Facility: [facility] Address: [address] [place] [address] Performed By: #### L [id number] #### [facility] CLIA [id number] [address] [place] [address] [place] WBC (Bld) [#/Vol] 5.26 10*3/uL Normal 3.70-11.00 [facility] Comment on above: Order Comment: Speci men Type: URINE SPECIMEN Ordering Facility: [facility] Address: [address] [place] [address] Performed By: #### L [id number] #### [facility] CLIA [id number] [address] [place], [place] [address] [place] Comprehensive metabolic 2000 panelon 05-19-2022 Albumin [Mass/Vol] 4.4 g/dL Normal 3.9-4.9 [facility] Comment on above: Order Comment: Speci men Type: BLOOD SPECIMENOrdering Facility: [facility] Address: [address] [address] Performed By: #### 2 4323-8, 60800-7 ####[facility] [id number] [place] [address] [place] ALP [Catalytic activity/Vol] 83 U/L Normal 38-113 [facility] Comment on above: Order Comment: Speci men Type: BLOOD SPECIMENOrdering Facility: [facility] Address: [address] [address] Performed By: #### 2 432-8, 87211-5 ####[facility] LABIA [id number] [place] [address] [place] ALT [Catalytic activity/Vol] 45 U/L Normal 10-54 [facility] Comment on above: Order Comment: Speci men Type: BLOOD SPECIMENOrdering Facility: [facility] Address: [address] [address] Performed By: #### 2 4323-8, 15049-6 ####[facility] LABIA [id number] [place] [address] [place] Anion gap [Moles/Vol] 10 mmol/L Normal 9-18 [facility] Comment on above: Order Comment: Speci men Type: BLOOD SPECIMENOrdering Facility: [facility] Address: [address] [address] Performed By: #### 2 4323-8, 34264-0 ####[facility] LABIA [id number] [place] [address] [place] AST [Catalytic activity/Vol] 31 U/L Normal 14-40 [facility] Comment on above: Order Comment: Speci men Type: BLOOD SPECIMENOrdering Facility: [facility] Address: [address] [address] Performed By: #### 2 4323-8, 61592-4 ####[facility]IA [id number] [place] [address] [place] Bilirubin [Mass/Vol] 0.6 mg/dL Normal 0.2-1.3 [facility] Comment on above: Order Comment: Speci men Type: BLOOD SPECIMENOrdering Facility: [facility] Address: [address] [place] [address] Performed By: #### 2 4323-8, 43363-2 ####[facility]IA [id number] [place] [address] [place] Calcium [Mass/Vol] 9.5 mg/dL Normal 8.5-10.2 [facility] Comment on above: Order Comment: Speci men Type: BLOOD SPECIMENOrdering Facility: [facility] Address: [address] [place] [address] Performed By: #### 2 4328, 67942-2 ####[facility] LABCLIA [id number] [place] [address] [place] Chloride [Moles/Vol] 103 mmol/L Normal 97-105 [facility] Comment on above: Order Comment: Speci men Type: BLOOD SPECIMENOrdering Facility: [facility] Address: [address] [place] [address] Performed By: #### 2 4323-8, 21174-7 ####[facility] LABCLIA [id number] [place] [address] [place] CO2 [Moles/Vol] 26 mmol/L Normal 22-30 [facility] Comment on above: Order Comment: Speci men Type: BLOOD SPECIMENOrdering Facility: [facility] Address: [address] [place] [address] Performed By: #### 2 4323-8, 66890-5 ####[facility] LABCLIA [id number] [place] [address] [place] Creatinine [Mass/Vol] 0.98 mg/dL Normal 0.73-1.22 [facility] Comment on above: Order Comment: Tessa sandra Type: BLOOD SPECIMENOrdering Facility: [facility] Address: [address] [place] [address] Performed By: #### 2 4323-8, 60467-8 ####[facility] LABCLIA [id number] [place] [address] [place] ESTIMATED GLOMERULAR FILTRATION RATE 95 mL/min/1.73m??? Normal >=60 [facility] Comment on above: Order Comment: Specdallas men Type: BLOOD SPECIMENOrdering Facility: [facility] Address: [address] [place] [address] Result Comment: Halle mated Glomerular Filtration Rate [...] actual GFR. Performed By: #### 2 4323-8, 19274-7 ####[facility] LABCLIA [id number] [place] [address] [place] Glucose [Mass/Vol] 203 mg/dL High 74-99 [facility] Comment on above: Order Comment: Tessa flores Type: BLOOD SPECIMENOrdering Facility: [facility] Address: Stephanie [address]omin[address] [place] [address] Result Comment: The [place] Diabetes Association (ADA) provides guidance for cutoff [...] Standards of Medical Care in Diabetes 2016, [place] Diabetes Association. Diabetes Care. 2016.39(Suppl 1). Performed By: #### 2 4323-8, 19170-4 ####[facility] LABCLIA [id number] [place] [address] [place] Potassium [Moles/Vol] 4.6 mmol/L Normal 3.7-5.1 [facility] Comment on above: Order Comment: Speci men Type: BLOOD SPECIMENOrdering Facility: [facility] Address: [address] [address] Performed By: #### 2 4323-8, 55818-3 ####[facility] LABIA [id number] [place] [address] [place] Protein [Mass/Vol] 7.4 g/dL Normal 6.3-8.0 [facility] Comment on above: Order Comment: Speci men Type: BLOOD SPECIMENOrdering Facility: [facility] Address: [address] [address] Performed By: #### 2 432-8, 59719-3 ####[facility] LABIA [id number] [place] [address] [place] Sodium [Moles/Vol] 139 mmol/L Normal 136-144 [facility] Comment on above: Order Comment: Speci men Type: BLOOD SPECIMENOrdering Facility: [facility] Address: [address] [address] Performed By: #### 2 4323-8, 41169-8 ####[facility] LABIA [id number] [place] [address] [place] Urea nitrogen [Mass/Vol] 17 mg/dL Normal 9-24 [facility] Comment on above: Order Comment: Speci men Type: BLOOD SPECIMENOrdering Facility: [facility] Address: [address] [address] Performed By: #### 2 4323-8, 51629-8 ####[facility] LABCLIA [id number] OF [facility] HbA1c (Bld)on 05-19-2022 Average glucose Estimated from glycated hemoglobin (Bld) [Mass/Vol] 108 mg/dL Normal [facility] Comment on above: Order Comment: Tessa flores Type: URINE SPECIMEN Ordering Facility: [facility] Address: [address] [address] Result Comment: eAG: (Estimated average glucose) is a calculated value from HgbA1c and is business process representative of the average blood glucose level in the last 2-3 month period. Performed By: #### L [id number] #### [facility] CLIA [id number] [address] [place] [address] HbA1c (Bld) [Mass fraction] 5.4 % Normal 4.3-5.6 [facility] Comment on above: Order Comment: Tessa flores Type: URINE SPECIMEN Ordering Facility: [facility] Address: [address] [place] [address] Result Comment: [place] Diabetes Association guidelines indicate that patients with HgbA1c in the range 5.7-6.4% are at increased risk for development of diabetes, and intervention by lifestyle modification may be beneficial. HgbA1c greater or equal to 6.5% is considered diagnostic of diabetes. Performed By: #### L [id number] #### [facility] CLIA [id number] [address] [place] [address] OF [facility] Lipid 1996 panelon 3 Cholesterol [Mass/Vol] 219 mg/dL High <200 [facility] Comment on above: Order Comment: Selmai men Type: BLOOD SPECIMENOrdering Facility: [facility] Address: [address] [address] Result Comment: <200 mg/dL, Desirable 200-239 mg/dL, Borderline high >239 mg/dL, High Performed By: #### 2 4323-8, 43828-8 ####[facility] LABCLIA [id number] [address] OF [facility] Cholesterol in HDL [Mass/Vol] 38 mg/dL Low >39 [facility] Comment on above: Order Comment: Tessa flores Type: BLOOD SPECIMENOrdering Facility: [facility] Address: [address] [place] [address] Result Comment: 40-5 9 mg/dL, Acceptable >59 mg/dL, High: Negative risk factor for coronary heart disease <40 mg/dL, Low: Positive risk factor for coronary heart disease Performed By: #### 2 4323-8, 58896-3 ####[facility] LABCLIA [id number] [place] [address] [facility] Cholesterol in LDL [Mass/Vol] 149 mg/dL High <100 [facility] Comment on above: Order Comment: Selmadallas flores Type: BLOOD SPECIMENOrdering Facility: [facility] Address: [address] [place] [address] Result Comment: <100 mg/dL, Optimal 100-129 mg/dL, Near optimal/above optimal 130-159 mg/dL, Borderline high 160-189 mg/dL, High >189 mg/dL, Very high Secondary prevention optimal LDL Cholesterol levels are recommended to be < 70 mg/dL Performed By: #### 2 4323-8, 69673-6 ####[facility] LABIA [id number] [address] Cholesterol in LDL/Cholesterol in HDL [Mass ratio] 3.92 {ratio} High <2.54 [facility] Comment on above: Order Comment: Tessa flores Type: BLOOD SPECIMENOrdering Facility: [facility] Address: [address] [place] [address] Result Comment: Refe rence: 1. National Cholesterol Education Program ATP III Guideline At-A-Glance Quick Desk Reference: National Heart, Lung, and Blood [place]. National Institutes of Health. 2001: NIH Publication No. 01-3305. 2. An International Atherosclerosis Society position paper: global recommendations for the management of dyslipidemia: executive summary, Atherosclerosis. 2014: 232(2):410-413. Performed By: #### 2 4323-8, 24142-3 ####[facility] LABCLIA [id number] [address] Cholesterol in VLDL [Mass/Vol] 32 mg/dL High <30 [facility] Comment on above: Order Comment: Speci men Type: BLOOD SPECIMENOrdering Facility: [facility] Address: [address] [place] [address] Performed By: #### 2 4323-8, 72230-4 ####[facility] LABCLIA [id number] [address] [place] Cholesterol non HDL [Mass/Vol] 181 mg/dL High <130 [facility] Comment on above: Order Comment: Speci men Type: BLOOD SPECIMENOrdering Facility: [facility] Address: [address] [place] [address] Result Comment: <130 mg/dL, Optimal 130-159 mg/dL, Near optimal/above optimal 160-189 mg/dL, Borderline high 190-219 mg/dL, High >219 mg/dL, Very high Secondary prevention optimal non HDL Cholesterol levels are recommended to be <100 mg/dL Performed By: #### 2 4328, 88000-2 ####[facility] LABIA [id number] [address] Cholesterol.total/Ch olesterol in HDL [Mass ratio] 5.76 {ratio} High <5.10 [facility] Comment on above: Order Comment: Speci men Type: BLOOD SPECIMENOrdering Facility: [facility] Address: [address] [place] [address] Performed By: #### 2 43238, 85526-3 ####[facility] LABCLIA [id number] [address] STATES [facility] FASTING TIME 10 hrs Normal [facility] Comment on above: Order Comment: Speci men Type: BLOOD SPECIMENOrdering Facility: [facility] Address: [address] [address] Performed By: #### 2 4323-8, 80023-9 ####[facility] LABCLIA [id number] [address] [place] Triglyceride [Mass/Vol] 161 mg/dL High <150 [facility] Comment on above: Order Comment: Speci men Type: BLOOD SPECIMENOrdering Facility: [facility] Address: [address] [address] Result Comment: <150 mg/dL, Normal 150-199 mg/dL, Borderline high 200-499 mg/dL, High >499 mg/dL, Very high Performed By: #### 2 4323-8, 65506-9 ####[facility] LABCLIA [id number] [place] [address] [place] PSA/PROSTSPECAG SCRNon 05-19 Prostate specific Ag [Mass/Vol] 0.56 ng/mL Normal <2.60 [facility] Comment on above: Order Comment: Speci men Type: BLOOD SPECIMENOrdering Facility: [facility] Address: [address] [address] Result Comment: Tota kim PSA test methodology used is the Electrochemiluminescence Immunoassay by [employer]. Total PSA values by differing methodologies cannot be interchanged. Performed By: #### P SAS1 ####[facility] [id number] [address] [place] TSH SerPl-aCncon 05-19-2022 TSH Qn 1.020 m[IU]/L Normal 0.270-4.200 [facility] Comment on above: Order Comment: Speci men Type: BLOOD SPECIMENOrdering Facility: [facility] Address: [address] [address] Performed By: #### 3 016-3 ####[facility] LABCLIA [id number] [place] [address] [place] URINALYSIS, REFLEX MICROSCOP ICon 05-19-2022 Bilirubin Ql (U) Negative Normal Negative [facility] Comment on above: Order Comment: Speci men Type: URINE SPECIMEN Ordering Facility: [facility] Address: [address] [address] Performed By: #### L [id number] #### [facility] CLIA [id number] [address] [place] [address] [place] Clarity (Unsp spec) Clear Normal Clear [facility] Comment on above: Order Comment: Speci men Type: URINE SPECIMEN Ordering [facility]: [facility] Address: [address] [place] [address] Performed By: #### L [id number] #### [facility] CLIA [id number] [address] [place] [address] OF [facility] Color (U) Yellow Normal Yellow [facility] Comment on above: Order Comment: Speci men Type: URINE SPECIMEN Ordering Facility: [facility] Address: [address] [place] [address] Performed By: #### L [id number] #### [facility] CLIA [id number] [address] [place] [address] OF [facility] Epithelial cells LM.HPF (Urine sed) [#/Area] Few Normal [facility] Comment on above: Order Comment: Speci men Type: URINE SPECIMEN Ordering Facility: [facility] Address: [address] [place] [address] Performed By: #### L [id number] #### [facility] CLIA [id number] [address] [place] [address] OF [facility] Glucose Test strip (U) [Mass/Vol] Negative Normal Negative [facility] Comment on above: Order Comment: Speci men Type: URINE SPECIMEN Ordering Facility: [facility] Address: [address] [place] [address] Performed By: #### L [id number] #### [facility] CLIA [id number] [address] [place] [address] [place] Hemoglobin Ql (U) Negative Normal Negative [facility] Comment on above: Order Comment: Speci men Type: URINE SPECIMEN Ordering Facility: [facility] Address: [address] [place] [address] Performed By: #### L [id number] #### [facility] CLIA [id number] [address] [place] [address] [place] Ketones Ql (U) Trace Abnormal Negative [facility] Comment on above: Order Comment: Speci men Type: URINE SPECIMEN Ordering Facility: [facility] Address: [address] [place] [address] Performed By: #### L [id number] #### [facility] CLIA [id number] [address] [place] [address] [place] Leukocyte esterase Test strip Ql (U) Negative Normal Negative [facility] Comment on above: Order Comment: Speci men Type: URINE SPECIMEN Ordering [facility]: [facility] Address: [address] [place] [address] Performed By: #### L [id number] #### [facility] CLIA [id number] [address] [place] [address] [place] Nitrite Ql (U) Negative Normal Negative [facility] Comment on above: Order Comment: Speci men Type: URINE SPECIMEN Ordering [facility]: [facility] Address: [address] [place] [address] Performed By: #### L [id number] #### [facility] CLIA [id number] [address] [place] [place] [address] [place] pH (U) 5.5 [pH] Normal 5.0-8.0 [facility] Comment on above: Order Comment: Speci men Type: URINE SPECIMEN Ordering [facility]: [facility] Address: [address] [place] [address] Performed By: #### L [id number] #### [facility] CLIA [id number] [address] [place] [address] STATES [facility] Protein (U) [Mass/Vol] 1+ Abnormal Negative [facility] Comment on above: Order Comment: Speci men Type: URINE SPECIMEN Ordering [facility]: [facility] Address: [address] [place] [address] Performed By: #### L [id number] #### [facility] CLIA [id number] [address] [place] [address] RBC LM.HPF (Urine sed) [#/Area] 0-3 /HPF Normal 0-3 /HPF [facility] Comment on above: Order Comment: Speci men Type: URINE SPECIMEN [facility]ing [facility]: [facility] Address: [address] [place] [address] Performed By: #### L [id number] #### [facility] CLIA [id number] [address] [place] [place] [address] [place] [facility] Specific gravity (U) [Rel density] >=1.030 High 1.005-1.030 [facility] Comment on above: Order Comment: Speci men Type: URINE SPECIMEN Ordering [facility]: [facility] Address: [address] [place] [address] Performed By: #### L [id number] #### [facility] CLIA [id number] [address] [place] [address] Urobilinogen Ql (U) 0.2 EU/dL Normal 0.2-1.0 EU/dL [facility] Comment on above: Order Comment: Speci men Type: URINE SPECIMEN [facility]ing [facility]: [facility] Address: [address] [place] [address] Performed By: #### L [id number] #### [facility] CLIA [id number] [address] [place] [address] WBC LM.HPF (Urine sed) [#/Area] 0-5 /HPF Normal 0-5 /HPF [facility] Comment on above: Order Comment: Speci men Type: URINE SPECIMEN [facility]ing [facility]: [facility] Address: [address] [place] [address] Performed By: #### L [id number] #### [facility] CLIA [id number] [address] [place] [address] [place] MRI CSPINE WO CONon 04-23-19 23 [...] HERRERA Date: 2022-04-23 06:50 Normal [facility] XR FOREIGN BODY EYEon 2022 XR FOREIGN BODY EYE EXAMINATION: XR FORE IGN BODY EYE HISTORY: Foreign body in eye COMPARISON: No relevant comparison available. FINDINGS: ORBITS: Negative for a metallic foreign body. OTHER: Negative. IMPRESSION: 1. No metallic foreign body within the orbits. Electronically authenticated by: JAYY GIVENS Date: 2022-04-20 13:52 Normal [facility] CNOVon 02-15-2022 CNOV Office Visit ([facility] ) -- NEHAL BIAG ([id number]) 1970 M Date Time Provider Department 02/15/22 [...] endo wt managmeent Dr. Jorge -needs f/up classification and treatment director Tarsha Jamison -needs appt with Dr. Man/Agustina-endo wt management team [phone] Has been off metformin 6 weeks + [...] statin. Ultrasound carotids previously ordered at [facility]- 11/25/2019- 0 to 29% stenosis bilaterally. [...] 2020. This is a workers comp issue-through [facility] quiñones/Dr. Cowan. 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 Shoulder replacement surgery left 08/23/24. 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 HM: -declines flu vaccine -declines covid [...] looks fine. Vitamin D is low-please begin txst-uuu-hrddtdm vitamin D3 2000 units daily. Urine asymptomatic. Component Latest Ref Rng AND Units 02/10/2022 Color Yellow Yellow Clarity Clear Clear Glucose, Urine Negative Negative Bilirubin, Urine Negative Negative Ketones, Urine Negative Negative Specific [place], Ur 1.005 - 1.030 1.037 (H) Hemoglobin/Blood,Ur [...] other (Epilepsy) (more content not included)... Normal [facility] 25(OH)D3 [facility] 2021 25-hydroxyvitamin D3 [Mass/Vol] 28.2 ng/mL Low 31.0-80.0 [facility] Comment on above: Order Comment: Speci men Type: BLOOD SPECIMENOrdering Facility: [facility] Address: [address] [place] [address] Result Comment: Clas sification of 25 [place] Vitamin D status: Deficiency/Insufficiency: < or = 30 ng/ml. Sufficiency/Optimal Levels: 31-80 ng/mL Toxicity: > 100 ng/mL. Test performed by chemiluminescent immunoassay. Performed By: #### 1 989-3 ####[facility] LABCLIA [id number] [address] [place] CBC panel Auto (Bld)on 02-10 Erythrocyte distribution width (RBC) [Ratio] 13.2 % Normal 11.5-15.0 [facility] Comment on above: Order Comment: Speci men Type: BLOOD SPECIMENOrdering Facility: [facility] Address: [address] [place] [address] Performed By: #### 5 8410-2 ####[facility] LABIA [id number] [address] Hematocrit (Bld) [Volume fraction] 41.9 % Normal 39.0-51.0 [facility] Comment on above: Order Comment: Speci men Type: BLOOD SPECIMENOrdering Facility: [facility] Address: [address] [place] [address] Performed By: #### 5 8410-2 ####[facility] LABIA [id number] [address] [place] Hemoglobin (Bld) [Mass/Vol] 13.9 g/dL Normal 13.0-17.0 [facility] Comment on above: Order Comment: Speci men Type: BLOOD SPECIMENOrdering Facility: [facility] Address: [address] [place] [address] Performed By: #### 5 8410-2 ####[facility] LABIA [id number] [address] [place] MCH (RBC) [Entitic mass] 29.0 pg Normal 26.0-34.0 [facility] Comment on above: Order Comment: Speci men Type: BLOOD SPECIMENOrdering Facility: [facility] Address: [address] [place] [address] Performed By: #### 5 8410-2 ####[facility] [id number] [place] [address] [place] MCHC (RBC) [Mass/Vol] 33.2 g/dL Normal 30.5-36.0 [facility] Comment on above: Order Comment: Speci men Type: BLOOD SPECIMENOrdering Facility: [facility] Address: [address] [place] [address] Performed By: #### 5 8410-2 ####[facility] [id number] [place] [address] [place] MCV (RBC) [Entitic vol] 87.5 fL Normal 80.0-100.0 [facility] Comment on above: Order Comment: Speci men Type: BLOOD SPECIMENOrdering Facility: [facility] Address: [address] [place] [address] Performed By: #### 5 8410-2 ####[facility] [id number] [place] [address] [place] Nucleated RBC (Bld) [#/Vol] 10*3/uL Normal <0.01 [facility] Comment on above: Order Comment: Speci men Type: BLOOD SPECIMENOrdering Facility: [facility] Address: [address] [place], [place] [address] Performed By: #### 5 8410-2 ####[facility] [id number] [place] [address] [place] Platelet mean volume (Bld) [Entitic vol] 10.6 fL Normal 9.0-12.7 [facility] Comment on above: Order Comment: Speci men Type: BLOOD SPECIMENOrdering Facility: [facility] Address: [address] [place], [place] [address] Performed By: #### 5 8410-2 ####[facility] [id number] [place] [address] [place] Platelets (Bld) [#/Vol] 198 10*3/uL Normal 150-400 [facility] Comment on above: Order Comment: Speci men Type: BLOOD SPECIMENOrdering Facility: [facility] Address: [address] [place], [place] [address] Performed By: #### 5 8410-2 ####[facility] LABCLIA [id number] [facility] [place] [address] [place] RBC (Bld) [#/Vol] 4.79 10*6/uL Normal 4.20-6.00 [facility] Comment on above: Order Comment: Speci men Type: BLOOD SPECIMENOrdering Facility: [facility] Address: [address] [place], [place] [address] Performed By: #### 5 8410-2 ####[facility] LABCLIA [id number] [facility] [place] [address] [place] WBC (Bld) [#/Vol] 6.46 10*3/uL Normal 3.70-11.00 [facility] Comment on above: Order Comment: Speci men Type: BLOOD SPECIMENOrdering Facility: [facility] Address: [address] [place], [place] [address] Performed By: #### 5 8410-2 ####[facility] LABCLIA [id number] [facility] [place] [address] [place] Comprehensive metabolic 2000 panelon 02-10-2022 Albumin [Mass/Vol] 4.5 g/dL Normal 3.9-4.9 [facility] Comment on above: Order Comment: Speci men Type: BLOOD SPECIMENOrdering Facility: [facility] Address: [address] [place], [place] [address] Performed By: #### 3 016-3, 26865-8 ####[facility] LABCLIA [id number] [facility] [place] [address] [place]#### 36877-2 ####[facility] LABCLIA [id number] [address] [address] [place] [facility] LABORATORYCLIA [id number] [place] [address] [place] ALP [Catalytic activity/Vol] 85 U/L Normal 38-113 [facility] Comment on above: Order Comment: Speci men Type: BLOOD SPECIMENOrdering Facility: [facility] Address: [address] [address] Performed By: #### 3 016-3, 21512-5 ####[facility] LABCLIA [id number] [place] [address] [place]#### 62235-0 ####[facility] LABCLIA [id number] [place] [address] [place] [facility] LABORATORYCLIA [id number] [place] [address] [place] ALT [Catalytic activity/Vol] 34 U/L Normal 10-54 [facility] Comment on above: Order Comment: Speci men Type: BLOOD SPECIMENOrdering Facility: [facility] Address: [address] Performed By: #### 3 016-3, 01316-2 ####[facility] LABCLIA [id number] [place] [address] [place]#### 64982-7 ####[facility] LABCLIA [id number] [place] [address] [place] [facility] [place] LABORATORYCLIA [id number] [place] [address] [place] Anion gap [Moles/Vol] 10 mmol/L Normal 9-18 [facility] Comment on above: Order Comment: Speci men Type: BLOOD SPECIMENOrdering Facility: [facility] Address: [address] [place] [address] Performed By: #### 3 016-3, 58039-6 ####[facility] LABCLIA [id number] [address] [address] [place]#### 27681-7 ####[facility] LABCLIA [id number] [place] [address] [facility] LABORATORYCLIA [id number] [place] [address] [place] AST [Catalytic activity/Vol] 25 U/L Normal 14-40 [facility] Comment on above: Order Comment: Speci men Type: BLOOD SPECIMENOrdering Facility: [facility] Address: [address] [place] [address] Performed By: #### 3 016-3, 96321-5 ####[facility] LABCLIA [id number] [place] [address] [place]#### 71699-2 ####[facility] LABCLIA [id number] [address] STATES OF [facility] LABORATORYCLIA [id number] [place] [address] [place] Bilirubin [Mass/Vol] 0.4 mg/dL Normal 0.2-1.3 [facility] Comment on above: Order Comment: Speci men Type: BLOOD SPECIMENOrdering Facility: [facility] Address: [address] [place] [address] Performed By: #### 3 016-3, 77674-3 ####[facility] LABCLIA [id number] [place] [address] [place]#### 28235-3 ####[facility] LABCLIA [id number] [place] [address] [place] [facility] [place] LABORATORYCLIA [id number] [place] [address] [place] Calcium [Mass/Vol] 9.3 mg/dL Normal 8.5-10.2 [facility] Comment on above: Order Comment: Speci men Type: BLOOD SPECIMENOrdering Facility: [facility] Address: [address] [place] [address] Performed By: #### 3 016-3, ####[facility] LABCLIA [id number] [facility] [place] [address] [place]#### 48681-8 ####[facility] LABCLIA [id number] [place] [facility] [place] [address] [place] [facility] LABORATORYCLIA [id number] [place] [address] [place] Chloride [Moles/Vol] 103 mmol/L Normal 97-105 [facility] Comment on above: Order Comment: Speci men Type: BLOOD SPECIMENOrdering Facility: [facility] Address: [address] [place] [address] Performed By: #### 3 016-3, ####[facility] LABCLIA [id number] [place] [address] [place]#### 34835-0 ####[facility] LABCLIA [id number] [facility] [place] [address] [place] [facility] LABORATORYCLIA [id number] [place] [address] [place] CO2 [Moles/Vol] 26 mmol/L Normal 22-30 [facility] Comment on above: Order Comment: Speci men Type: BLOOD SPECIMENOrdering Facility: [facility] Address: [address] [place] [address] Performed By: #### 3 016-3, ####[facility] LABCLIA [id number] [facility] [place] [id number] [place]#### 714[address]-0 ####[facility] LABCLIA [id number] [address] LABORATORYCLIA [id number] [place] [address] [place] [facility] Creatinine [Mass/Vol] 0.90 mg/dL Normal 0.73-1.22 [facility] Comment on above: Order Comment: Speci men Type: BLOOD SPECIMENOrdering Facility: [facility] Address: [address] [place] [address] Performed By: #### 3 016-3, 79977-1 ####[facility] LABCLIA [id number] [address]#### 22961-7 ####[facility] LABCLIA [id number] [address] LABORATORYIA [id number] [address] STATES [facility] ESTIMATED GLOMERULAR FILTRATION RATE 105 mL/min/1.73m??? Normal >=60 [facility] Comment on above: Order Comment: Speci men Type: BLOOD SPECIMENOrdering Facility: [facility] Address: [address] [place] [address] Result Comment: Halle mated Glomerular Filtration Rate [...] actual GFR. Performed By: #### 3 016-3, 28255-8 ####[facility] LABCLIA [id number] [address] [place]#### 16[address]-5 ####[facility] LABCLIA [id number] [address] LABORATORYCLIA [id number] [place] [address] [place] Glucose [Mass/Vol] 115 mg/dL High 74-99 [facility] Comment on above: Order Comment: Speci men Type: BLOOD SPECIMENOrdering Facility: [facility] Address: [address] [address] Result Comment: The [place] Diabetes Association (ADA) provides guidance for cutoff [...] Standards of Medical Care in Diabetes 2016, [place] Diabetes Association. Diabetes Care. 2016.39(Suppl 1). Performed By: #### 3 016-3, ####[facility] LABCLIA [id number] [facility] [address] [place]#### 69101-6 ####[facility] LABCLIA [id number] [place] [address] [place] [facility] LABORATORYCLIA [id number] [place] [address] [place] Potassium [Moles/Vol] 4.2 mmol/L Normal 3.7-5.1 [facility] Comment on above: Order Comment: Speci men Type: BLOOD SPECIMENOrdering Facility: [facility] Address: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 [place] FINAL PERFORMING LAB Normal [facility] Comment on above: Order Comment: Speci men Type: TISSUE SPECIMEN Ordering Facility: [facility] Address: [address] [place] [address] Result Comment: Diag nostic interpretation performed at [facility], [address] [place] [address] CLIA# [id number] Director Maternal Child: Nehal Cid M.D. Performed By: #### S #### [facility] CLIA [id number] [address] [place] [address] GROSS DESCRIPTION [facility] Comment on above: Order Comment: Speci men Type: TISSUE SPECIMEN [facility]ing [facility]: [facility] Address: [address] [place] [address] Result Comment: A. S IGMOID COLON POLYP. Received in formalin are multiple pieces of kaufman, soft tissue aggregating to 1.8 x 0.3 x 0.2 cm. Totally submitted in one cassette. SS July 31, 2021 7:11 PM Gross examination performed at [facility], [address] [place] [address] Performed By: #### S #### [facility] CLIA [id number] [address] [place] [address] [place] CBC panel Auto (Bld)on 07-29 Erythrocyte distribution width (RBC) [Ratio] 12.5 % Normal 11.5-15.0 [facility] Comment on above: Order Comment: Speci men Type: URINE SPECIMEN [facility]ing [facility]: [facility] Address: [address] [place] [address] Performed By: #### L [id number] #### [facility] CLIA [id number] [address] [place] [address] [place] Hematocrit (Bld) [Volume fraction] 39.4 % Normal 39.0-51.0 [facility] Comment on above: Order Comment: Speci men Type: URINE SPECIMEN Ordering Facility: [facility] Address: [address] [place] [address] Performed By: #### L [id number] #### [facility] CLIA [id number] [address] [place] [address] [place] Hemoglobin (Bld) [Mass/Vol] 13.6 g/dL Normal 13.0-17.0 [facility] Comment on above: Order Comment: Speci men Type: URINE SPECIMEN Ordering Facility: [facility] Address: [address] [place] [address] Performed By: #### L [id number] #### [facility] CLIA [id number] [address] [place] [address] [place] MCH (RBC) [Entitic mass] 29.3 pg Normal 26.0-34.0 [facility] Comment on above: Order Comment: Speci men Type: URINE SPECIMEN Ordering Facility: [facility] Address: [address] [place] [address] Performed By: #### L [id number] #### [facility] CLIA [id number] [address] [place] [address] [place] MCHC (RBC) [Mass/Vol] 34.5 g/dL Normal 30.5-36.0 [facility] Comment on above: Order Comment: Speci men Type: URINE SPECIMEN Ordering Facility: [facility] Address: [address] [place] [address] Performed By: #### L [id number] #### [facility] CLIA [id number] [address] [place] [address] [place] MCV (RBC) [Entitic vol] 84.9 fL Normal 80.0-100.0 [facility] Comment on above: Order Comment: Speci men Type: URINE SPECIMEN Ordering Facility: [facility] Address: [address] [place] [address] Performed By: #### L [id number] #### [facility] CLIA [id number] [address] [place] [address] [place] Nucleated RBC (Bld) [#/Vol] 10*3/uL Normal <0.01 [facility] Comment on above: Order Comment: Speci men Type: URINE SPECIMEN Ordering Facility: [facility] Address: [address] [place], [place] [address] Performed By: #### L [id number] #### [facility] CLIA [id number] [address] [place] [address] [place] Platelet mean volume (Bld) [Entitic vol] 9.9 fL Normal 9.0-12.7 [facility] Comment on above: Order Comment: Speci men Type: URINE SPECIMEN Ordering Facility: [facility] Address: [address] [place], [place] [address] Performed By: #### L [id number] #### [facility] CLIA [id number] [address] [place] [address] [place] Platelets (Bld) [#/Vol] 187 10*3/uL Normal 150-400 [facility] Comment on above: Order Comment: Speci men Type: URINE SPECIMEN Ordering Facility: [facility] Address: [address] [place], [place] [address] Performed By: #### L [id number] #### [facility] CLIA [id number] [address] [place] [address] [place] RBC (Bld) [#/Vol] 4.64 10*6/uL Normal 4.20-6.00 [facility] Comment on above: Order Comment: Speci men Type: URINE SPECIMEN Ordering Facility[facility] Address: [address] [place], [place] [address] Performed By: #### L [id number] #### [facility] [facility] CLIA [id number] [address] [place], [place] [address] [facility] [place] WBC (Bld) [#/Vol] 5.29 10*3/uL Normal 3.70-11.00 [facility] Comment on above: Order Comment: Speci men Type: URINE SPECIMEN Ordering Facility: [facility] Address: [address] [place], [place] [address] Performed By: #### L [id number] #### [facility] CORPORATIONRaheem [facility] CLIA [id number] [address] [place], [place] [address] [facility] Comprehensive metabolic 2000 panelon 07-29-2021 Albumin [Mass/Vol] 4.6 g/dL Normal 3.9-4.9 [facility] Comment on above: Order Comment: Speci men Type: BLOOD SPECIMENOrdering Facility: [facility] Address: [address] [place] [address] Performed By: #### L IPB, 71598-2 ####[facility] LABCLIA [id number] [place] [address] [place] ALP [Catalytic activity/Vol] 80 U/L Normal 38-113 [facility] Comment on above: Order Comment: Speci men Type: BLOOD SPECIMENOrdering Facility: [facility] Address: [address] [place], [place] [address] Performed By: #### L IPB, 93422-0 ####[facility] LABCLIA [id number] [place] [address] [place] ALT [Catalytic activity/Vol] 58 U/L High 10-54 [facility] Comment on above: Order Comment: Speci men Type: BLOOD SPECIMENOrdering Facility: [facility] Address: [address] [place], [place] [address] Performed By: #### L IPB, 93484-8 ####[facility] LABCLIA [id number] [place] [address] [place] Anion gap [Moles/Vol] 7 mmol/L Low 9-18 [facility] Comment on above: Order Comment: Speci men Type: BLOOD SPECIMENOrdering Facility: [facility] Address: [address] [place] [address] Performed By: #### L IPB, 58271-4 ####[facility] LABCLIA [id number] [place] [address] [place] AST [Catalytic activity/Vol] 39 U/L Normal 14-40 [facility] Comment on above: Order Comment: Speci men Type: BLOOD SPECIMENOrdering Facility: [facility] Address: [address] [place] [address] Performed By: #### L KIERRAB, 56169-0 ####[facility] LABCLIA [id number] [place] [address] [place] Bilirubin [Mass/Vol] 0.4 mg/dL Normal 0.2-1.3 [facility] Comment on above: Order Comment: Speci men Type: BLOOD SPECIMENOrdering Facility: [facility] Address: [address] [place] [address] Performed By: #### L IPB, 59300-9 ####[facility] LABCLIA [id number] [place] [address] [place] Calcium [Mass/Vol] 9.8 mg/dL Normal 8.5-10.2 [facility] Comment on above: Order Comment: Speci men Type: BLOOD SPECIMENOrdering Facility: [facility] Address: [address] [place] [address] Performed By: #### L IPB, 52594-3 ####[facility] LABCLIA [id number] [place] [address] [place] Chloride [Moles/Vol] 104 mmol/L Normal 97-105 [facility] Comment on above: Order Comment: Speci men Type: BLOOD SPECIMENOrdering Facility: [facility] Address: [address] [place] [address] Performed By: #### L IPB, 88718-3 ####[facility]ST [facility] LABCLIA [id number] [place] [address] [place] CO2 [Moles/Vol] 28 mmol/L Normal 22-30 [facility] Comment on above: Order Comment: Speci men Type: BLOOD SPECIMENOrdering Facility: [facility] Address: [address] [place] [address] Performed By: #### L IPB, 06228-3 ####[facility] LABCLIA [id number] [place] [address] [place] Creatinine [Mass/Vol] 0.98 mg/dL Normal 0.73-1.22 [facility] Comment on above: Order Comment: Speci men Type: BLOOD SPECIMENOrdering Facility: [facility] Address: [address] [place] [address] Performed By: #### L IPB, 50424-5 ####AMHTU[facility] CORPORATIONT [facility] LABCLIA [id number] [place] [address] [place] ESTIMATED GLOMERULAR FILTRATION RATE 95 mL/min/1.73m??? Normal >=60 [facility] Comment on above: Order Comment: Speci men Type: BLOOD SPECIMENOrdering Facility: [facility] Address: [address] [place] [address] Result Comment: Halle mated Glomerular Filtration Rate [...] actual GFR. Performed By: #### L IPB, 91770-2 ####[facility] LABCLIA [id number] [place] [address] [place] Glucose [Mass/Vol] 120 mg/dL High 74-99 [facility] Comment on above: Order Comment: Speci men Type: BLOOD SPECIMENOrdering Facility: [facility] Address: [address] [place] [address] Result Comment: The [place] Diabetes Association (ADA) provides guidance for cutoff [...] Standards of Medical Care in Diabetes 2016, [place] Diabetes Association. Diabetes Care. 2016.39(Suppl 1). Performed By: #### L IPB, 47931-6 ####[facility] LABCLIA [id number] [place] [address] [place] Potassium [Moles/Vol] 4.7 mmol/L Normal 3.7-5.1 [facility] Comment on above: Order Comment: Speci men Type: BLOOD SPECIMENOrdering Facility: [facility] Address: [address] [place] [address] Performed By: #### L IPB, 32079-6 ####[facility] LABCLIA [id number] [place] [address] [place] Protein [Mass/Vol] 7.6 g/dL Normal 6.3-8.0 [facility] Comment on above: Order Comment: Speci men Type: BLOOD SPECIMENOrdering Facility: [facility] Address: [address] [place] [address] Performed By: #### L IPB, 16794-5 ####[facility] LABCLIA [id number] [place] [address] [place] Sodium [Moles/Vol] 139 mmol/L Normal 136-144 [facility] Comment on above: Order Comment: Speci men Type: BLOOD SPECIMENOrdering Facility: [facility] Address: [address] [place] [address] Performed By: #### L IPB, 89511-3 ####[facility] LABCLIA [id number] [place] [address] [place] [facility] Urea nitrogen [Mass/Vol] 18 mg/dL Normal 9-24 [facility] Comment on above: Order Comment: Speci men Type: BLOOD SPECIMENOrdering Facility: [facility] Address: [address] [place] [address] Performed By: #### L IPB, 50367-4 ####[facility]IST[facility]AL [facility] LABCLIA [id number] [address] HGB A1Con 07-29-2021 Average glucose Estimated from glycated hemoglobin (Bld) [Mass/Vol] 117 mg/dL Normal [facility] Comment on above: Order Comment: Speci men Type: BLOOD SPECIMENOrdering Facility: [facility] Address: [address] [place] [address] Result Comment: eAG: (Estimated average glucose) is a calculated value from HgbA1c and is business process representative of the average blood glucose level in the last 2-3 month period. Performed By: #### H BA1C ####[facility] LABIA [id number] [address] STATES [facility] HbA1c (Bld) [Mass fraction] 5.7 % High 4.3-5.6 [facility] Comment on above: Order Comment: Speci men Type: BLOOD SPECIMENOrdering Facility: [facility] Address: [address] [place] [address] Result Comment: [place] Diabetes Association guidelines indicate that patients with HgbA1c in the range 5.7-6.4% are at increased risk for development of diabetes, and intervention by lifestyle modification may be beneficial. HgbA1c greater or equal to 6.5% is considered diagnostic of diabetes. Performed By: #### H BA1C ####[facility] LABCLIA [id number] [place] [address] [facility] LIPID PANEL BASICon 07-30-19 22 Cholesterol [Mass/Vol] 240 mg/dL High <200 [facility] Comment on above: Order Comment: Speci men Type: BLOOD SPECIMENOrdering Facility: [facility] Address: [address] [place] [address] Result Comment: <200 mg/dL, Desirable 200-239 mg/dL, Borderline high >239 mg/dL, High Performed By: #### L FILIPE, 41416-9 ####[facility] LABCLIA [id number] [address] [place] Cholesterol in HDL [Mass/Vol] 37 mg/dL Low >39 [facility] Comment on above: Order Comment: Speci men Type: BLOOD SPECIMENOrdering Facility: [facility] Address: [address] [place] [address] Result Comment: 40-5 9 mg/dL, Acceptable >59 mg/dL, High: Negative risk factor for coronary heart disease <40 mg/dL, Low: Positive risk factor for coronary heart disease Performed By: #### Kim DENT, 76522-6 ####[facility] LABCLIA [id number] [address] STATES OF [facility] Cholesterol in LDL [Mass/Vol] 175 mg/dL High <100 [facility] Comment on above: Order Comment: Speci men Type: BLOOD SPECIMENOrdering Facility: [facility] Address: [address] [place] [address] Result Comment: <100 mg/dL, Optimal 100-129 mg/dL, Near optimal/above optimal 130-159 mg/dL, Borderline high 160-189 mg/dL, High >189 mg/dL, Very high Secondary prevention optimal LDL Cholesterol levels are recommended to be < 70 mg/dL Performed By: #### L KIERRAB, 06233-5 ####[facility] LABCLIA [id number] [place] [address] [place] Cholesterol in LDL/Cholesterol in HDL [Mass ratio] 4.73 {ratio} High <2.54 [facility] Comment on above: Order Comment: Speci men Type: BLOOD SPECIMENOrdering Facility: [facility] Address: [address] [place] [address] Result Comment: Doris tucker: 1. National Cholesterol Education Program ATP III Guideline At-A-Glance Quick Desk Reference: National Heart, Lung, and Blood [place]. National Institutes of Health. 2001: NIH Publication No. 01-3305. 2. An International Atherosclerosis Society position paper: global recommendations for the management of dyslipidemia: executive summary, Atherosclerosis. 2014: 232(2):410-413. Performed By: #### L KIERRAB, 53657-9 ####[facility] LABCLIA [id number] [place] [address] [place] Cholesterol in VLDL [Mass/Vol] 28 mg/dL Normal <30 [facility] Comment on above: Order Comment: Speci men Type: BLOOD SPECIMENOrdering Facility: [facility] Address: [address] [place] [address] Performed By: #### L IPB, 58387-3 ####[facility] LABCLIA [id number] [address] [place] Cholesterol non HDL [Mass/Vol] 203 mg/dL High <130 [facility] Comment on above: Order Comment: Speci men Type: BLOOD SPECIMENOrdering Facility: [facility] Address: [address] [place] [address] Result Comment: <130 mg/dL, Optimal 130-159 mg/dL, Near optimal/above optimal 160-189 mg/dL, Borderline high 190-219 mg/dL, High >219 mg/dL, Very high Secondary prevention optimal non HDL Cholesterol levels are recommended to be <100 mg/dL Performed By: #### L IPB, 73638-8 ####[facility] LABCLIA [id number] [place] [address] [place] Cholesterol.total/Ch olesterol in HDL [Mass ratio] 6.49 {ratio} High <5.10 [facility] Comment on above: Order Comment: Speci men Type: BLOOD SPECIMENOrdering Facility: [facility] Address: [address] [place] [address] Performed By: #### L FILIPE, 20565-0 ####[facility] LABCLIA [id number] [place] [address] [place] FASTING TIME 12. hrs Normal [facility] Comment on above: Order Comment: Speci men Type: BLOOD SPECIMENOrdering Facility: [facility] Address: [address] [place] [address] Performed By: #### L KIERRAB, 02582-6 ####[facility] LABIA [id number] [place] [address] [place] Triglyceride [Mass/Vol] 140 mg/dL Normal <150 [facility] Comment on above: Order Comment: Speci men Type: BLOOD SPECIMENOrdering Facility: [facility] Address: [address] [place] [address] Result Comment: <150 mg/dL, Normal 150-199 mg/dL, Borderline high 200-499 mg/dL, High >499 mg/dL, Very high Performed By: #### L FILIPE, 21972-9 ####[facility] LABIA [id number] [place] [address] [place] PSA/PROSTSPECAG SCRNon 07-29 Prostate specific Ag [Mass/Vol] 0.41 ng/mL Normal <2.60 [facility] Comment on above: Order Comment: Speci men Type: BLOOD SPECIMENOrdering Facility: [facility] Address: [address] [place] [address] Result Comment: Tota l PSA test methodology used is the Electrochemiluminescence Immunoassay by [employer]. Total PSA values by differing methodologies cannot be interchanged. Performed By: #### P SAS1 ####[facility] LABCLIA [id number] [place] [address] [place] TSH SerPl-aCncon 07-29-2021 TSH Qn 4.060 m[IU]/L Normal 0.270-4.200 [facility] Comment on above: Order Comment: Speci men Type: BLOOD SPECIMENOrdering Facility: [facility] Address: [address] [place], [place] [address] Performed By: #### 3 016-3 ####[facility] LABCLIA [id number] [facility] HOSPITALDominik [id number] [address] [place] URINALYSIS, REFLEX MICROSCOP ICon 07-29-2021 Bilirubin Ql (U) Negative Normal Negative [facility] Comment on above: Order Comment: Speci men Type: URINE SPECIMEN Ordering Facility: [facility] Address: [address] [place] [address] Performed By: #### L [id number] #### [facility] CLIA [id number] [address] [place] [place] [address] [place] Clarity (Unsp spec) Clear Normal Clear [facility] Comment on above: Order Comment: Speci men Type: URINE SPECIMEN Ordering Facility: [facility] Address: [address] [place] [address] Performed By: #### L [id number] #### [facility] CLIA [id number] [address] [place] [place] [address] [place] [facility] Color (U) Yellow Normal Yellow [facility] Comment on above: Order Comment: Speci men Type: URINE SPECIMEN Ordering Facility: [facility] Address: [address] [place] [address] Performed By: #### L [id number] #### [facility] CLIA [id number] [address] [place] [address] [place] Glucose Test strip (U) [Mass/Vol] Negative Normal Negative [facility] Comment on above: Order Comment: Speci men Type: URINE SPECIMEN Ordering Facility: [facility] Address: [address] [place] [address] Performed By: #### L [id number] #### [facility] CLIA [id number] [address] [place] [address] [place] Hemoglobin Ql (U) Negative Normal Negative [facility] Comment on above: Order Comment: Speci men Type: URINE SPECIMEN Ordering Facility: [facility] Address: [address] [place] [address] Performed By: #### L [id number] #### [facility] CLIA [id number] [address] [place] [address] [place] Ketones Ql (U) Negative Normal Negative [facility] Comment on above: Order Comment: Speci men Type: URINE SPECIMEN Ordering [facility]: [facility] Address: [address] [place] [address] Performed By: #### L [id number] #### [facility] CLIA [id number] [address] [place] [address] [place] Leukocyte esterase Test strip Ql (U) Negative Normal Negative [facility] Comment on above: Order Comment: Speci men Type: URINE SPECIMEN [facility]ing [facility] Address: [address] [place] [address] Performed By: #### L [id number] #### [facility] CLIA [id number] [address] [place] [address] [place] Nitrite Ql (U) Negative Normal Negative [facility] Comment on above: Order Comment: Speci men Type: URINE SPECIMEN [facility]ing [facility]: [facility] Address: [address] [place] [address] Performed By: #### L [id number] #### [facility] CLIA [id number] [address] [place] [address] [place] pH (U) 5.5 [pH] Normal 5.0-8.0 [facility] Comment on above: Order Comment: Speci men Type: URINE SPECIMEN Ordering Facility: [facility] Address: [address] [place] [address] Performed By: #### L [id number] #### [facility] CLIA [id number] [address] [place] [address] [place] Protein (U) [Mass/Vol] Negative Normal Negative [facility] Comment on above: Order Comment: Speci men Type: URINE SPECIMEN Ordering Facility: [facility] Address: [address] [place] [address] Performed By: #### L [id number] #### [facility] CLIA [id number] [address] [place] [address] [place] Specific gravity (U) [Rel density] 1.025 Normal 1.005-1.030 [facility] Comment on above: Order Comment: Speci men Type: URINE SPECIMEN Ordering Facility: [facility] Address: [address] [place] [address] Performed By: #### L [id number] #### [facility] CLIA [id number] [address] [place] [address] [place] Urobilinogen Ql (U) 0.2 EU/dL Normal 0.2-1.0 EU/dL [facility] Comment on above: Order Comment: Speci men Type: URINE SPECIMEN Ordering [facility]: [facility] Address: [address] [place] [address] Performed By: #### L [id number] #### [facility] CLIA [id number] [address] [place] [address] [place] VITAMIN D 25 HYDROXYon 07-29 25-hydroxyvitamin D3 [Mass/Vol] 29.1 ng/mL Low 31.0-80.0 [facility] Comment on above: Order Comment: Speci men Type: BLOOD SPECIMENOrdering Facility: [facility] Address: [address] [place], [place] [address] Result Comment: Clas sification of 25 [place] Vitamin D status: Deficiency/Insufficiency: < or = 30 ng/ml. Sufficiency/Optimal Levels: 31-80 ng/mL Toxicity: > 100 ng/mL. Test performed by chemiluminescent immunoassay. Performed By: #### V ITD ####[facility] LABCLIA [id number] [place] [address] [place] HISTORY PHYSICALon HISTORY PHYSICAL HNO ID: [id number] Author: Prisca Van PA-C Service: ? Author Type: Physician Drawing Operator Type: HANDP Filed: 07/26/2021 1:52 PM Note Text: [facility] This is a virtual visit. It required patient-provider interaction for the medical decision making as documented below. Patient has been identified by name and date of : Yes Reason for call: PACC visit Accompanied by: Self Patient name: Nehal Baig Scheduled Surgery: colonoscopy 07/31/2021 at [facility] CHIEF COMPLAINT: Patient presents with: Outpatient Colonoscopy [...] fevers. 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 No neurological symptoms or problems. Respiratory: No history of current cough or dyspnea, or pneumonia in the past 6 weeks. +asthma-uses Flovent daily, albuterol 3-5 times/week +JACOBY- BiPAP nightly +lung nodules Cardiovascular: No history of angina, CHF, CA, cardiac surgery or stents. Denies rest pain, [...] carotid puls (more content not included)... 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 [facility] ([facility]) -- NEHAL BAIG ([id number]) 1970 M Date Time Provider [facility], we recorded the following information about you: Beatriz Cowan 07/25/2021 11:22 AM Signed [facility] states the Golytely is on backorder. They have the Newlytely in stock. Is it OK to substitute? Please advise. [phone]. Beatriz Cowan July 25, 2021 11:22 AM [...] Status:Closed by SALOME AGUILLON on 07/25/21 [address] [facility] [address] CHEST WO IVCONon 02-14-20 Radiology Result ACTIONABLE Abnormal [facility] Basic Metab w/rfx MGon 08-02 (cont.) Normal [facility] Comment on above: Result Comment: Aver age GFR for 40-49 years old: 99 mL/min/1.73sq m Chronic Kidney Disease: <60 mL/min/1.73sq m Kidney failure: <15 mL/min/1.73sq m eGFR calculated using average adult body mass. Additional eGFR calculator available at: [email or web address]/multiple_crcl_2012.htm Performed By: #### Krissy REYNA BMPX ####[facility] HospitalSilver[facility] GlobalDqqtzedjssrn[address] [place] [id number] Lab Director: Nate Stafford MD Anion gap [Moles/Vol] 11 mmol/L Normal 9-17 [facility] Comment on above: Performed By: #### Krissy REYNA BMPX ####[facility] [address] [place], [place] [id number] lab Director: Nate Stafford MD Calcium [Mass/Vol] 8.5 mg/dL Low 8.6-10.4 [facility] Comment on above: Performed By: #### C BC, BMPX ####[facility] [address] [place], [place] [phone] Director: Nate Stafford MD Chloride [Moles/Vol] 101 mmol/L Normal 98-107 [facility] Comment on above: Performed By: #### C BC, BMPX ####[facility] [address] [place], [place] [phone] Director: Nate Stafford MD CO2 [Moles/Vol] 23 mmol/L Normal 20-31 [facility] Comment on above: Performed By: #### C BC, BMPX ####[facility] [address] [place], [place] [phone] Director: Nate Stafford MD Creatinine [Mass/Vol] 0.62 mg/dL Low 0.70-1.20 [facility] Comment on above: Performed By: #### C BC, BMPX ####[facility] [address]gmoau[address] [place], [place] [phone] Director: Nate Stafford MD GFR, Amer >60 Normal >60 [facility] Comment on above: Performed By: #### C BC, BMPX ####[facility] [address]frjzmiv[address] [place], [place] [phone] Director: Nate Stafford MD GFR,non Amer >60 Normal >60 [facility] Comment on above: Performed By: #### C BC, BMPX ####[facility] [address]djuv[address] [place], [place] [phone] Director: Nate Stafford MD Glucose [Mass/Vol] 120 mg/dL High 70-99 [facility] Comment on above: Performed By: #### C BC, BMPX ####[facility] Hifdivwqkbsp4464 [place], [place] [phone] Director: Nate Stafford MD Potassium [Moles/Vol] 4.3 mmol/L Normal 3.7-5.3 [facility] Comment on above: Performed By: #### C BC, BMPX ####[facility] [address]zswtyyoagbe1339 [place] [address] Lab Director: Nate Stafford MD Sodium [Moles/Vol] 135 mmol/L Normal 135-144 [facility] Comment on above: Performed By: #### C BC, BMPX ####[facility] [address] [place], [place] [phone] Director: Nate Stafford MD Urea nitrogen [Mass/Vol] 14 mg/dL Normal - [facility] Comment on above: Performed By: #### C BC, BMPX ####[facility] [address]dmbrdtl2672 [place] [address] Lab Director: Nate Stafford MD BUN/CRE Ratio NOT REPORTED Normal - [facility] Comment on above: Performed By: #### C BC, BMPX ####[facility] [address]me[address] [place] [address] Lab Director: Nate Stafford MD Staging: NOT REPORTED Normal [facility] Comment on above: Performed By: #### C BC, BMPX ####[facility] [address]xp[address]qskvjz0209 [place] [address] Lab Director: Naet Stafford MD Basic Metabolic Panel w/ Ref johnny to MGOrdered By: Halina Pathak on 08-02-2020 Anion gap [Moles/Vol] 11 mmol/L 9 - 17 mmol/L [employer] Phone: Calcium [Mass/Vol] 8.5 mg/dL Low 8.6 - 10. 4 mg/dL [employer] Phone: Chloride [Moles/Vol] 101 mmol/L 98 - 10 7 mmol/L [employer] Phone: CO2 [Moles/Vol] 23 mmol/L 20 - 31 mmol/L [employer] Phone: Creatinine [Mass/Vol] 0.62 mg/dL Low 0.70 - 1.20 mg/dL [employer] Phone: GFR >60 >60 mL/min [employer] Phone: GFR Non- >60 >60 mL/min [employer] Phone: GFR/1.73 sq M.predicted MDRD (S/P/Bld) [Vol rate/Area] [employer] Phone: Comment on above: Average GFR for 40-4 9 years old: 99 mL/min/1.73sq m Chronic Kidney Disease: <60 mL/min/1.73sq m Kidney failure: <15 mL/min/1.73sq m eGFR calculated using average adult body mass. Additional eGFR calculator available at: http://www.[employer]chey/multiple_crcl_2012.htm GFR/1.73 sq M.predicted MDRD (S/P/Bld) [Vol rate/Area] NOT REPORTED [employer] Phone: Glucose [Mass/Vol] 120 mg/dL High 70 - 99 mg/dL [employer] Phone: Interpretation and review of laboratory results Abnormal [employer] Phone: Potassium [Moles/Vol] 4.3 mmol/L 3.7 - 5.3 mmol/L [employer] Phone: Sodium [Moles/Vol] 135 mmol/L 135 - 144 mmol/L [employer] Phone: Urea nitrogen (BldV) [Mass/Vol] 14 mg/dL 6 - 20 mg/dL [employer] Phone: Urea nitrogen/Creatinine (Bld) [Mass ratio] NOT REPORTED [employer] Phone: CBCon 08-02-2020 Erythrocyte distribution width (RBC) [Ratio] 13.0 % Normal 11.8-14.4 [facility] Comment on above: Performed By: #### C BC, BMPX ####[facility] [address] [place] [address] Lab Director: Nate Stafford MD Hematocrit (Bld) [Volume fraction] 41.8 % Normal 40.7-50.3 [facility] Comment on above: Performed By: #### C BC, BMPX ####[facility] [address] [place] [address] [phone] Director: Nate Stafford MD Hemoglobin (Bld) [Mass/Vol] 13.8 g/dL Normal 13.0-17.0 [facility] Comment on above: Performed By: #### C BC, BMPX ####[address] [address] Lab Director: Nate Stafford MD MCH (RBC) [Entitic mass] 29.3 pg Normal 25.2-33.5 [facility] Comment on above: Performed By: #### C BC, BMPX ####[address] [address] Lab Director: Nate Stafford MD MCHC (RBC) [Mass/Vol] 33.0 g/dL Normal 28.4-34.8 [facility] Comment on above: Performed By: #### C BC, BMPX ####[facility] [address] [place] [address] [phone] Director: Nate Stafford MD MCV (RBC) [Entitic vol] 88.7 fL Normal 82.6-102.9 [facility] Comment on above: Performed By: #### C BC, BMPX ####[facility] [address] [place] [address] Lab Director: Nate Stafford MD NRBC Automated 0.0 per 100 WBC Normal 0.0 [facility] Comment on above: Performed By: #### C BC, BMPX ####[facility] [address] [place] [address] Lab Director: Nate Stafford MD Platelet mean volume (Bld) [Entitic vol] 10.9 fL Normal 8.1-13.5 [facility] Comment on above: Performed By: #### C BC, BMPX ####[facility] [address]qlentjrw79[address] [place], [place] [phone] Director: Nate Stafford MD Platelets (Bld) [#/Vol] 221 10*3/uL Normal 138-453 [facility] Comment on above: Performed By: #### C BC, BMPX ####[facility] [address]ax[address] [place], [place] [phone] Director: Nate Stafford MD RBC (Bld) [#/Vol] 4.71 10*6/uL Normal 4.21-5.77 [facility] Comment on above: Performed By: #### C BC, BMPX ####[facility] [address] [place], [place] [phone] Director: Nate Stafford MD WBC (Bld) [#/Vol] 10.6 10*3/uL Normal 3.5-11.3 [facility] Comment on above: Performed By: #### C BC, BMPX ####[facility] [address] [place], [place] [address])[phone] Director: Nate Stafford MD CBCOrdered By: Halina Pathak on 08-02-2020 Hematocrit (Bld) [Volume fraction] 41.8 % 40.7 - 50.3 % [facility] Phone: Hemoglobin.gastroint estinal spec 1 Ql (Stl) 13.8 g/dL 13.0 - 17.0 g/dL [facility] Phone: MCH (RBC) [Entitic mass] 29.3 pg 25.2 - 33.5 pg [employer] Phone: MCHC (RBC) [Mass/Vol] 33.0 g/dL 28.4 - 34.8 g/dL [employer] Phone: MCV (RBC) [Entitic vol] 88.7 fL 82.6 - 102.9 fL [employer] Phone: NRBC Automated 0.0 0.0 per 100 WBC [employer] Phone: Platelet distribution width (Bld) [Ratio] 13.0 % 11.8 - 14.4 % [employer] Phone: Platelet mean volume (Bld) [Entitic vol] 10.9 fL 8.1 - 13.5 fL [employer] Phone: Platelets (Bld) [#/Vol] 221 10*3/uL [employer] Phone: RBC (Bld) [#/Vol] 4.71 10*6/uL 4.21 - 5.7 7 m/uL [employer] Phone: WBC (Bld) [#/Vol] 10.6 10*3/uL [employer] Phone: Trauma Profileon 08-02-2020 (cont.) Normal [facility] Comment on above: Result Comment: Aver age GFR for 40-49 years old: 99 mL/min/1.73sq m Chronic Kidney Disease: <60 mL/min/1.73sq m Kidney failure: <15 mL/min/1.73sq m eGFR calculated using average adult body mass. Additional eGFR calculator available at: http://www.[employer]/multiple_crcl_2012.htm Performed By: #### E RTISABEL GIBBS ####[employer] [address] [place] [address] [facility] Director: Nate Stafford MD Anion gap [Moles/Vol] 10 mmol/L Normal 9-17 [facility] Comment on above: Performed By: #### E RTPF, TROPI ####[facility] [address] [place], [place] [address])[phone] Director: Nate Stafford MD Chloride [Moles/Vol] 100 mmol/L Normal 98-107 [facility] Comment on above: Performed By: #### E RTPF, TROPI ####[facility] [address]bs[address]rud8[address] [place] [address]([facility])[phone] Director: Nate Stafford MD CO2 [Moles/Vol] 24 mmol/L Normal 20-31 [facility] Comment on above: Performed By: #### E RTPF, TROPI ####[facility] [address] [place], [place] [address])[phone] Director: Nate Stafford MD Creatinine [Mass/Vol] 0.71 mg/dL Normal 0.70-1.20 [facility] Comment on above: Performed By: #### E RTPF, TROPI ####[facility] [address] [place] [address])[phone] Director: Nate Stafford MD Ethanol [Mass/Vol] mg/dL Normal <10 [facility] Comment on above: Performed By: #### E RTPF, TROPI ####[facility] [address] [place], [place] [address])[phone] Director: Nate Stafford MD Ethanol percent <0.010 Normal <0.010 [facility] Comment on above: Performed By: #### E RTPF, TROPI ####[facility] [address]edx[address]ob[address] [place], [place] [address])[phone] Director: Nate Stafford MD GFR, Amer >60 Normal >60 [facility] Comment on above: Performed By: #### E RTPF, TROPI ####[facility] [address] [place], [place] [phone] Director: Nate Stafford MD GFR,non Amer >60 Normal >60 [facility] Comment on above: Performed By: #### E RTBERNIE TROPI ####[facility] [address]al[address] [place], [place] [phone] Director: Nate Stafford MD Glucose [Mass/Vol] 109 mg/dL High 70-99 [facility] Comment on above: Performed By: #### E RTPAlanna TROPI ####[facility] [address] [place], [place] [phone] Director: Nate Stafford MD Potassium [Moles/Vol] 4.2 mmol/L Normal 3.7-5.3 [facility] Comment on above: Performed By: #### E RTBERNIE TROPI ####[facility] [address] [place] [address] [phone] Director: Nate Stafford MD Sodium [Moles/Vol] 134 mmol/L Low 135-144 [facility] Comment on above: Performed By: #### E RTBERNIE TROPI ####[facility] [address]cus[address]gcye44[address] [place], [place] [phone] Director: Nate Stafford MD Urea nitrogen [Mass/Vol] 15 mg/dL Normal 6-20 [facility] Comment on above: Performed By: #### E RTPAlanna TROPI ####[facility] [address]ew[address] [place], [place] [phone] Director: Nate Stafford MD Troponinon 08-02-2020 Troponin, [...] Performed By: #### E RTPAlanna TROPI ####[facility] [address] [place] [address] lab Director: Nate Stafford MD Type + Screenon 08-02-2020 Type + Screen Sample Expiration 08/04/2020,2359 Arm Band Number [id number] ABO/Rh(D) A NEGATIVE Antibody Screen NEGATIVE Normal [facility] Comment on above: Performed By: #### T YS ####[facility] GlobalPblraprwtock5215 [place] [address] lab Director: Nate Stafford MD CT CERVICAL [...] spasm. No acute bony abnormalities are noted [employer] Phone: EXAMINATION: CT OF T HE CERVICAL [...] intact. The visualized lung apices are clear. [employer] Phone: Francisco, Mhpn Incoming R adiant Results From [employer] - 08/01/2020 7:04 PM EDT EXAMINATION: CT [...] spasm. No acute bony abnormalities are noted [employer] Phone: CT CHEST ABDOMEN PELVIS W CO [...] to Lung-RADS guidelines. Reference: Radiology. 2017; 284(1):228-43. [employer] Phone: EXAMINATION: CT OF T HE CHEST, [...] hernia. Bones/Soft Tissues: No acute osseous abnormality. [employer] Work Phone: Francisco, Mhpn Incoming R adiant Results From [employer] - 08/01/2020 7:19 PM EDT EXAMINATION: CT [...] to Lung-RADS guidelines. Reference: Radiology. 2017; 284(1):228-43. [employer] Work Phone: CT HEAD WO CONTRASTon 2020 [...] 08-01-2020 1. No acute intracra nial abnormality. [employer] Phone: EXAMINATION: CT OF T HE HEAD [...] clear. SOFT TISSUES/SKULL: The calvarium is intact. [employer] Phone: Francisco, Mhpn Incoming R adiant Results From [employer] - 08/01/2020 7:01 PM EDT EXAMINATION: CT [...] intact. IMPRESSION: 1. No acute intracranial abnormality. [employer] Work Phone: CT LUMBAR SPINE TRAUMA RECON [...] Abuse, Uron 2020 Amphetamine(s),Ur Negative Normal NEG [facility] Comment on above: Result Comment: (Positive cutoff 1000 ng/mL) Performed By: #### U TETE LOUIS #### [facility] [address] [place], [place] [phone] [employer] Tech: Nate Stafford MD Barbiturate(s),Ur Negative Normal NEG [facility] Comment on above: Result Comment: (Positive cutoff 200 ng/mL) Performed By: #### U AMIKrissy LOUIS #### [facility] [address] [place] [address] [employer]: Nate Stafford MD Benzodiazepine(s) Negative Normal NEG [facility] Comment on above: Result Comment: (Positive cutoff 200 ng/mL) Performed By: #### U TETE LOUIS #### [facility] [address] [place] [address] [employer] Tech: Nate Stafford MD Cannabinoid(s),Ur Negative Normal NEG [facility] Comment on above: Result Comment: (Positive cutoff 50 ng/mL) Performed By: #### U AMIC, LOUIS #### [facility] [address] [place] [address] [employer] Tech: Nate Stafford MD Cocaine Metabolite Negative Normal NEG [facility] Comment on above: Result Comment: (Positive cutoff 300 ng/mL) Performed By: #### U AMIC, LOUIS #### [facility] [address] [place] [address] [employer] Tech: Nate Stafford MD Interpretive Info Assay provides [...] By: #### U AMIC, LOUIS #### [facility] [address] [place] [address] [employer] Tech: Nate Stafford MD Methadone Ql (U) Negative Normal NEG [facility] Comment on above: Result Comment: (Positive cutoff 300 ng/mL) Performed By: #### U AMIC, LOUIS #### [facility] [address] [place] [address] [employer] Tech: Nate Stafford MD Opiate(s), Ur Negative Normal NEG [facility] Comment on above: Result Comment: (Positive cutoff 300 ng/mL) Performed By: #### U AMIC, LOUIS #### [facility] [address] [place] [address] [employer] Tech: Nate Stafford MD Oxycodone, Urine Negative Normal NEG [facility] Comment on above: Result Comment: (Positive cutoff 100 ng/mL) Performed By: #### U AMIC, LOUIS #### [facility] [address] [place] [address] [employer] Tech: Nate Stafford MD Phencyclidine, Ur Negative Normal NEG [facility] Comment on above: Result Comment: (Positive cutoff 25 ng/mL) Performed By: #### U AMIC, LOUIS #### [facility] [address] [place] [address] [employer] Tech: Nate Stafford MD Buprenorphrine, Ur NOT REPORTED Normal NEG [facility] Comment on above: Performed By: #### U AMIC, LOUIS #### [facility] [address] [place] [address] [employer] Tech: Nate Stafford MD MDMA, Urine NOT REPORTED Normal NEG [facility] Comment on above: Performed By: #### U AMIC, LOUIS #### [facility] [address] [place] [address] [employer] Tech: Nate Stafford MD Methamphetamine, Ur NOT REPORTED Normal NEG [facility] Comment on above: Performed By: #### U AMIC, LOUIS #### [facility] [address] [place] [address] [employer] Tech: Nate Stafford MD Propoxyphene,Urine NOT REPORTED Normal NEG [facility] Comment on above: Performed By: #### U AMIC, LOUIS #### [facility] [address] [place] [address] [employer] Tech: Nate Stafford MD Tricyclic antidepressants Screen Ql (U) NOT REPORTED Normal NEG [facility] Comment on above: Performed By: #### U AMIC, LOUIS #### [facility] [address] [place] [address] [employer] Tech: Nate Stafford MD No Panel InformationOrdered By: [...] to body habitus but requires clinical correlation. [employer] Phone: EXAMINATION: TWO XRA Y VIEWS OF [...] may relate to swelling or body habitus. [employer] Phone: Francisco, Mhpn Incoming R adiant Results From [employer] - 08/01/2020 9:41 PM EDT EXAMINATION: TWO [...] to body habitus but requires clinical correlation. [employer] Phone: No Panel InformationOrdered By: Ronnie Lund on 08-01-2020 Degenerative disc di sease at L5-S1. No acute bony abnormalities are seen in the thoracic or lumbar spine [employer] Phone: EXAMINATION: CT OF T HE LUMBAR [...] SOFT TISSUES/RETROPERITONEUM: No paraspinal mass is seen. [employer] Phone: Francisco, Mhpn Incoming R adiant Results From [employer] - 08/01/2020 7:11 PM EDT EXAMINATION: CT [...] seen in the thoracic or lumbar spine [employer] Phone: TRAUMA PANELOrdered By: Carlos Pathak on 08-01-2020 Lawson Test Unable to perform te sting: No specimen received. [employer] Phone: Anion gap [Moles/Vol] 10 mmol/L 9 - 17 mmol/L [employer] Phone: aPTT Coag (Bld) [Time] 23.3 s [employer] Phone: Comment on above: IV Heparin Therapy Range: 48.6-77.8 Blood Bank Specimen BILL FOR SERVICES PERFORMED [employer] Phone: Carboxyhemoglobin Unable to perform te sting: No specimen received. % [employer] Work Phone: Chloride [Moles/Vol] 100 mmol/L 98 - 10 7 mmol/L [employer] Phone: CO2 [Moles/Vol] 24 mmol/L 20 - 31 mmol/L [employer] Phone: Creatinine [Mass/Vol] 0.71 mg/dL 0.70 - 1.20 mg/dL [employer] Phone: Ethanol [Mass/Vol] mg/dL <10 mg/dL [employer] Phone: Ethanol percent <0.010 <0.010 % [employer] Work Phone: FIO2 Unable to perform te sting: No specimen received. [employer] Phone: GFR >60 >60 mL/min [employer] Phone: GFR Non- >60 >60 mL/min [employer] Phone: GFR/1.73 sq M.predicted MDRD (S/P/Bld) [Vol rate/Area] [employer] Phone: Comment on above: Average GFR for 40-4 9 years old: 99 mL/min/1.73sq m Chronic Kidney Disease: <60 mL/min/1.73sq m Kidney failure: <15 mL/min/1.73sq m eGFR calculated using average adult body mass. Additional eGFR calculator available at: http://www.[employer]Trove/multiple_crcl_2012.htm GFR/1.73 sq M.predicted MDRD (S/P/Bld) [Vol rate/Area] NOT REPORTED [employer] Phone: Glucose [Mass/Vol] 109 mg/dL High 70 - 99 mg/dL [employer] Phone: hCG Qual PATIENT IS MALE NEGATIVE [employer] [facility] Work Phone: HCO3, Venous Unable to perform te sting: No specimen received. 24.0 - 30.0 mmol/L [employer] Phone: Hematocrit (Bld) [Volume fraction] 42.3 % 40.7 - 50.3 % [employer] Work Phone: Hemoglobin.gastroint estinal spec 1 Ql (Stl) 14.2 g/dL 13.0 - 17.0 g/dL [employer] Phone: INR Coag (Bld) [Relative time] 1.0 {INR} [employer] Phone: Comment on above: Therapeutic Range: Moderate Anticoagulant Intensity: INR = 2.0-3.0 High Anticoagulant Intensity: INR = 2.5-3.5 Interpretation and review of laboratory results Abnormal [employer] Phone: MCH (RBC) [Entitic mass] 29.3 pg 25.2 - 33.5 pg [employer] Phone: MCHC (RBC) [Mass/Vol] 33.6 g/dL 28.4 - 34.8 g/dL [employer] Phone: MCV (RBC) [Entitic vol] 87.2 fL 82.6 - 102.9 fL [employer] Phone: Methemoglobin Unable to perform te sting: No specimen received. % [employer] Phone: Mode Unable to perform te sting: No specimen received. [employer] Phone: Negative Base Excess, Srikanth Unable to perform testing: No specimen received. 0.0 - 2.0 mmol/L [employer] Phone: NOTIFICATION Unable to perform te sting: No specimen received. [employer] Phone: NOTIFICATION TIME Unable to perform te sting: No specimen received. [employer] Phone: NRBC Automated 0.0 0.0 per 100 WBC [employer] Phone: O2 Device/Flow/% Unable to perform te sting: No specimen received. [employer] Phone: O2 Sat, Srikanth Unable to perform te sting: No specimen received. % [employer] Phone: Oxyhemoglobin Unable to perform te sting: No specimen received. 95.0 - 98.0 % [employer] Phone: pCO2, Sriknath Unable to perform te sting: No specimen received. [employer] Phone: pCO2, Srikanth, Temp Adj Unable to perform te sting: No specimen received. [employer] Phone: Peep/Cpap Unable to perform te sting: No specimen received. [employer] Phone: pH, Srikanth Unable to perform te sting: No specimen received. [employer] Phone: pH, Srikanth, Temp Adj Unable to perform te sting: No specimen received. [employer] Phone: Platelet distribution width (Bld) [Ratio] 12.9 % 11.8 - 14.4 % [employer] Phone: Platelet mean volume (Bld) [Entitic vol] 10.1 fL 8.1 - 13.5 fL [employer] Phone: Platelets (Bld) [#/Vol] 220 10*3/uL [employer] Phone: pO2, Srikanth Unable to perform te sting: No specimen received. [employer] Phone: pO2, Srikanth, Temp Adj Unable to perform te sting: No specimen received. [employer] Phone: Positive Base Excess, Srikanth Unable to perform testing: No specimen received. 0.0 - 2.0 mmol/L [employer] Phone: Potassium [Moles/Vol] 4.2 mmol/L 3.7 - 5.3 mmol/L [employer] Phone: PSV Unable to perform te sting: No specimen received. [employer] Phone: PT Coag (PPP) [Time] 10.4 s [employer] Phone: Pt Temp Unable to perform te sting: No specimen received. [employer] Phone: Pt. Position Unable to perform te sting: No specimen received. [employer] Phone: RBC (Bld) [#/Vol] 4.85 10*6/uL 4.21 - 5.7 7 m/uL [employer] Phone: Respiratory Rate Unable to perform te sting: No specimen received. [employer] Phone: Sample Site Unable to perform te sting: No specimen received. [employer] Phone: Set Rate Unable to perform te sting: No specimen received. [employer] Phone: Sodium [Moles/Vol] 134 mmol/L Low 135 - 144 mmol/L [employer] Phone: Text for Respiratory Unable to perform t esting: No specimen received. [employer] Phone: Total Hb Unable to perform te sting: No specimen received. 12.0 - 16.0 g/dl [employer] Phone: Total Rate Unable to perform te sting: No specimen received. [employer] Phone: Urea nitrogen (BldV) [Mass/Vol] 15 mg/dL 6 - 20 mg/dL [employer] Phone: VT Unable to perform te sting: No specimen received. [employer] Phone: WBC (Bld) [#/Vol] 14.1 10*3/uL High [employer] Phone: TYPE AND SCREENOrdered By: Ivonne Ba on 08-01-2020 ABO/Rh Negative [facility] Phone: Arm Band Number [id number] [facility] Work Phone: Expiration Date 08/04/2020,2359 [employer] Work Phone: Trauma Profileon 08-01-2020 aPTT Coag (Bld) [Time] 23.3 s Normal 20.5-30.5 [facility] Comment on above: Result Comment: IV Heparin Therapy Range: 48.6-77.8 Performed By: #### E RTPF TROPI ####[place] [address] Lab Director: Nate Stafford MD INR Coag (PPP) [Relative time] 1.0 {INR} Normal [facility] Comment on above: Result Comment: Therapeutic Range: Moderate Anticoagulant Intensity: INR = 2.0-3.0 High Anticoagulant Intensity: INR = 2.5-3.5 Performed By: #### E RTPF TROPI ####[facility] [address] [place] [address] lab Director: Nate Stafford MD PT Coag (PPP) [Time] 10.4 s Normal 9.1-12.3 [facility] Comment on above: Performed By: #### E RTPF TROPI ####[facility] [address] [place] [address] lab Director: Nate Stafford MD Erythrocyte distribution width (RBC) [Ratio] 12.9 % Normal 11.8-14.4 [facility] Comment on above: Performed By: #### E RTPF TROPI ####[facility] [address] [place] [address] Lab Director: Nate Stafford MD Hematocrit (Bld) [Volume fraction] 42.3 % Normal 40.7-50.3 [facility] Comment on above: Performed By: #### E RTPF, TROPI ####[facility] [address] [place] [address] Lab Director: Nate Stafford MD Hemoglobin (Bld) [Mass/Vol] 14.2 g/dL Normal 13.0-17.0 [facility] Comment on above: Performed By: #### E RTPF, TROPI ####[facility] [facility] [address] [place] [id number])[phone] Director: Nate Stafford MD MCH (RBC) [Entitic mass] 29.3 pg Normal 25.2-33.5 [facility] Comment on above: Performed By: #### E RTPF, TROPI ####[facility] [address] [place] [id number])[phone] Director: Nate Stafford MD MCHC (RBC) [Mass/Vol] 33.6 g/dL Normal 28.4-34.8 [facility] Comment on above: Performed By: #### E RTPF, TROPI ####[facility] [address] [place] [address] Lab Director: Nate Stafford MD MCV (RBC) [Entitic vol] 87.2 fL Normal 82.6-102.9 [facility] Comment on above: Performed By: #### E RTPF, TROPI ####[facility] [address] [place] [address] Lab Director: Nate Stafford MD NRBC Automated 0.0 per 100 WBC Normal 0.0 [facility] Comment on above: Performed By: #### E RTPF, TROPI ####[facility] [address] [place] [address] [phone] Director: Nate Stafford MD Platelet mean volume (Bld) [Entitic vol] 10.1 fL Normal 8.1-13.5 [facility] Comment on above: Performed By: #### E RTPF, TROPI ####[facility] [address] [place], [place] [phone] Director: Nate Stafford MD Platelets (Bld) [#/Vol] 220 10*3/uL Normal 138-453 [facility] Comment on above: Performed By: #### E RTPF, TROPI ####[facility] [address] [place] [address] Lab Director: Ntae Stafford MD RBC (Bld) [#/Vol] 4.85 10*6/uL Normal 4.21-5.77 [facility] Comment on above: Performed By: #### E RTPF, TROPI ####[facility] [address] [place], [place] [phone] Director: Nate Stafford MD WBC (Bld) [#/Vol] 14.1 10*3/uL High 3.5-11.3 [facility] Comment on above: Performed By: #### E RTPF, TROPI ####[facility] [address] [place] [address] Lab Director: Nate Stafford MD Staging: NOT REPORTED Normal [facility] Comment on above: Performed By: #### E RTPF, TROPI ####[facility] [address]xik[address] [place], [place] [id number])[phone] Director: Nate Stafford MD Blood Bank BILL FOR SERVICES PERFORMED Normal [facility] Comment on above: Performed By: #### E RTPF, TROPI ####[facility] [address] [place], [place] [id number])[phone] Director: Nate Stafford MD Troponinon 08-01-2020 Troponin Interp. NOT REPORTED Normal [facility] Comment on above: Performed By: #### E RTPF, TROPI ####[address] [place], [place] [id number] Lab Director: Nate Stafford MD Troponin T NOT REPORTED Normal <0.03 [facility] Comment on above: Performed By: #### E RTPF, TROPI ####[address] [place] [address] Lab Director: Nate Stafford MD TroponinOrdered By: Halina tyler on 08-01-2020 Troponin Interp NOT REPORTED [facility] [employer] Work Phone: Troponin T NOT REPORTED <0.03 ng/mL [facility] [employer] Work Phone: Troponin, High Sensitivity 6 ng/L 0 - 22 ng/L [facility] [employer] Work Phone: Comment on above: High Sensitivity [...] Performed By: #### U AMIC, LOUIS #### [facility] [address] [place] [address] [employer]: Nate Stafford MD Acetoacetic Acid,Ur Negative Normal NEG [facility] Comment on above: Performed By: #### U AMIC, LOUIS #### [facility] [address] [place] [address] [phone] [employer]: Nate Stafford MD Bilirubin, SemiQt,Ur Negative Normal NEG [facility] Comment on above: Performed By: #### U AMIC, LOUIS #### [facility] [address] [place] [address] [employer]: Nate Stafford MD Color (U) YELLOW Normal YEL [facility] Comment on above: Performed By: #### U AMIC, LOUIS #### [address] [address] [employer] Tech: Nate Stafford MD Epithelial cells LM Ql (Urine sed) 0 TO 2 Normal 0-5 [facility] Comment on above: Performed By: #### U AMIC, LOUIS #### [address] [address] [employer]: Nate Stafford MD Glucose Ql (U) Negative Normal NEG [facility] Comment on above: Performed By: #### U AMIC, LOUIS #### [address] [address] [employer]: Nate Stafford MD Hemoglobin, Ur Negative Normal NEG [facility] Comment on above: Performed By: #### U AMIC, LOUIS #### [address] [address] [employer] Tech: Nate Stafford MD Leukocyte esterase Test strip Ql (U) Negative Normal NEG [facility] Comment on above: Performed By: #### U AMIC, LOUIS #### [address] [address] [employer]: Nate Stafford MD Nitrite,Ur Negative Normal NEG [facility] Comment on above: Performed By: #### U AMIC, LOUIS #### [address] [address] [employer]: Nate Stafford MD PH,Ur 6.5 Normal 5.0-8.0 [facility] Comment on above: Performed By: #### U AMIC, LOUIS #### [address] [address] [employer] Tech: Nate Stafford MD Protein Ql (U) Negative Normal NEG [facility] Comment on above: Performed By: #### U AMIC, LOUIS #### [address] [address] [employer] Tech: Nate Stafford MD Spec. [place],Ur 1.037 High 1.005-1.030 [facility] Comment on above: Performed By: #### U AMIC, LOUIS #### [address] [address] [employer] Tech: Nate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 [facility] Start: 11-15-2021 End: 11-15-2021 Patient encounter procedure Salome Amaliacecil LOO.BLOCKING MACHINE TENDER Work Phone: [facility] [place] Comment on above: Morbid obesity with BMI [...] on Start: 09-22-2021 End: 09-22-2021 ambulatory [facility] Facility[facility] Start: 09-19-2021 End: 09-19-2021 ambulatory Brisa Edmondson RDMS Radiology Comment on above: Radiology US Start: 09-19-2021 End: 09-19-2021 Patient encounter procedure Brisa Edmondson RDMS [facility] [place] [facility] Comment on above: SOB (shortness of br eath) on exertion Start: 09-19-2021 End: 09-19-2021 Subsequent hospital visit by physician [facility] Radiology Comment on above: Elevated liver enzym es [R74.8] Stenosis of carotid artery, unspecified laterality [I65.29] Start: 09-18-2021 End: 09-18-2021 Subsequent hospital visit by physician [facility] RADIO CT [facility] Comment on above: Lung nodules [R91.8] [...] with patient Anh Howard MD Work Phone: [facility] Start: 08-30-2021 End: 08-30-2021 ambulatory ANH HOWARD Facility:[facility] Start: 08-30-2021 End: 08-30-[address] Nutrition Therapy Comment on above: Morbid obesity with BMI of 50.0-59.9, adult (HCC); Mixed hyperlipidemia; Essential hypertension; Arthralgia of multiple sites; Prediabetes; Obstructive sleep apnea syndrome; Abnormal weight gain; Fatty metamorphosis of liver Start: 08-30-2021 End: 08-30-2021 Telemedicine consultation with patient Tarsha Jamison RD [facility] Start: 08-23-2021 End: 08-23-2021 Admission to same day surgery center Huan Cowan [facility] Start: 08-15-2021 End: 08-15-2021 ambulatory SALOME AGUILLON Facility:[facility] Start: 08-15-2021 End: 08-15-2021 Patient encounter procedure Anh Howard MD Work Phone: Endocrinology Comment on above: Morbid obesity with BMI of 50.0-59.9, adult (HCC) (Primary Dx); Mixed hyperlipidemia; Essential hypertension; Arthralgia of multiple sites; Prediabetes; Obstructive sleep apnea syndrome; Abnormal weight gain; Fatty metamorphosis of liver Start: 08-10-2021 End: 08-10-2021 ambulatory SALOME AGUILLON Facility:[facility] Start: 08-10-2021 End: 08-10-2021 Patient encounter procedure Salome Amaliacecil LEROY Work Phone: [facility] [place] Comment on above: Routine physical exa mination (Primary Dx); Mixed hyperlipidemia; Morbid obesity with BMI of 50.0-59.9, adult (HCC); Elevated liver enzymes; Stenosis of carotid artery, unspecified laterality; SOB (shortness of breath) on exertion; Essential hypertension; Lung nodules; Environmental allergies; Chronic pain after traumatic injury; Impaired fasting blood sugar Start: 08-10-2021 End: 08-10-2021 Physical examination Salome Aguillon APRN.CNP Work Phone: [facility] [place] Start: 08-08-2021 End: 08-08-2021 Patient encounter procedure Huan Cowan [facility] Start: 07-31-2021 End: 07-31-2021 Subsequent hospital visit by physician Jayy Patel MD Work Phone: [facility] Endoscopy Comment on above: Dark stools [R19.5] Start: 07-29-2021 End: 07-30-2021 [facility] Start: 07-29-2021 Encounter for other specified special examinations ANH HOWARD [facility] Start: 07-26-2021 End: 07-26-2021 [facility] Facility[facility] Start: 07-26-2021 Encounter for other preprocedural examination ANH HOWARD [facility] Start: 07-26-2021 End: 07-26-2021 Admission to [facility] Virtual [facility] Start: 07-26-2021 End: 07-26-2021 [facility] Pre Anesthesia Comment on above: Pre-op evaluation (P rimary Dx); Screen for colon cancer; Essential hypertension; Mixed hyperlipidemia; Obstructive sleep apnea syndrome; Shortness of breath; Lung nodules; Morbid obesity with BMI of 50.0-59.9, adult ([facility] Start: 07-26-2021 End: 07-26-2021 Preprocedural examination done Pacc Virtual Pre Anesthesia Start: 07-25-2021 Telephone encounter Salome brown BLOCKING MACHINE TENDER Work Phone: [facility] [place] Comment on above: Medication Problem Start: 07-25-2021 End: 07-25-2021 ambulatory SALOME AGUILLON Facility:[facility] Start: 07-25-2021 End: 07-25-2021 Patient encounter procedure Salome Aguillon BLOCKING MACHINE TENDER Work Phone: [facility] [place] Comment on above: Essential hypertensi on (Primary Dx); Mild persistent asthma without complication; Screening for colon cancer; Bowel habit changes; Dark stools; Morbid obesity with BMI of 50.0-59.9, adult ([facility]) Start: 06-27-2021 ambulatory Salome Jose lyle LOO.BLOCKING MACHINE TENDER Work Phone: [facility] [place] Comment on above: PHMA/Care Gap Outrea ch [...] 12-17-2019 Subsequent hospital visit by physician X[facility] [place] Radiology Comment on above: Acute pain of left s houlder [M25.512] Procedures Date Procedure Procedure Detail Performing Clinician Start: 11-11-2023 Follow-up visit PAULAPRIL GEORGE Start: 08-14-2023 Follow-up visit PAUL DORIS Start: 07-25-2023 Follow-up visit PAUL DORIS Start: 06-14-2023 Follow-up visit PAULAPRIL GEORGE Start: 01-17-2023 X-ray of cervical spine LICENSED MASTER SOCIAL WORKER-C Salome Aguillon Work Phone: Start: 01-17-2023 X-ray of lumbar spin e, six views including bending views LICENSED MASTER SOCIAL WORKER-C Salome Aguillon Work Phone: Start: 12-16-2022 X-ray of left ankle LICENSED MASTER SOCIAL WORKER- C Salome Aguillon Work Phone: Start: 09-19-2021 Echo tthrc r-t 2d w/wom-mode compl spec&colr d Salome Aguillon YARN CLEANER.BLOCKING MACHINE TENDER Work Phone: Start: 09-19-2021 Duplex scan extracra nial art compl bi study Salome Aguillon YARN CLEANER.BLOCKING MACHINE TENDER Work Phone: Start: 09-19-2021 Us abdominal real ti me w/image limited Salome Pal YARN CLEANER.BLOCKING MACHINE TENDER Work Phone: Start: 09-18-2021 Ct thorax w/o contra st material Trey Sharma MD Work Phone: Start: 08-23-2021 Prosthetic total arthroplasty of left shoulder Huan Cowan Start: 08-09-2021 Adult depression scr eening assessment Salome Aguillon YARN CLEANER.BLOCKING MACHINE TENDER Work Phone: Start: 07-31-2021 Colonoscopy flx dx w /collj spec when pfrmd Salome Amaliacecil YARN CLEANER.BLOCKING MACHINE TENDER Work Phone: Start: 07-31-2021 Colonoscopy Jayy fontanez MD Work Phone: Start: 02-13-2021 Ct thorax w/o contra st material Salome Pal YARN CLEANER.BLOCKING MACHINE TENDER Work Phone: Start: 08-06-2020 Adult depression scr eening assessment Salome Pal YARN CLEANER.BLOCKING MACHINE TENDER Work Phone: Start: 08-02-2020 BASIC METABOLIC PANE [...] head/brain w/o co ntrast material Salome Aguillon APRN.BLOCKING MACHINE TENDER Work Phone: Start: 12-17-2019 Radex shoulder compl ete minimum 2 views Salome Aguillon APRN.BLOCKING MACHINE TENDER Work Phone: Colonoscopy Huan Cowan H/O: vasectomy Huan Cowan Comment on above: 2013 Plan of Treatment Date Care Activity Detail Author Start: 08-19-2027 LIPID SCREEN LIPID SCREEN [facility] Start: 05-19-2027 LIPID SCREEN LIPID SCREEN [facility] Start: 02-10-2027 LIPID SCREEN LIPID SCREEN [facility] Start: 07-29-2026 LIPID SCREEN LIPID SCREEN [facility] Start: 11-16-2025 DTaP/Tdap/Td vaccine (2 - Td) DTaP/Tdap/Td vaccine (2 - Td) [employer] Work Phone: Start: 11-16-2025 Urine microalbumin profile DTA P,TDAP,TD (2 - Td or Tdap) [facility] Start: 08-18-2025 DIABETES SCREEN DIABETES SCREEN [facility] Start: 05-19-2025 DIABETES SCREEN DIABETES SCREEN [facility] Start: 02-10-2025 DIABETES SCREEN DIABETES SCREEN [facility] Start: 11-22-2024 LIPID SCREEN LIPID SCREEN [facility] Start: 07-31-2024 Colonoscopy COLONOSCOPY [facility] Start: 07-31-2024 COLORECTAL CANCER SCREENING COLORECTAL CANCER SCREENING [facility] Start: 07-29-2024 DIABETES SCREEN DIABETES SCREEN [facility] Start: 08-21-2023 ANNUAL PCP TEAM PUBLIC FINANCE SPECIALIST JIGAR DISEASE VISIT ANNUAL PCP TEAM CHRONIC DISEASE VISIT [facility] Start: 08-21-2023 BP CONTROLLED (<130/80) BP CONTROLLE D (<130/80) [facility] Start: 08-21-2023 COVID-19 VACCINE (#1) COVID-19 VACCI NE (#1) [facility] Comment on above: Postponed from 04/05 (Declined at this time) Start: 05-21-2023 ANNUAL PCP TEAM PUBLIC FINANCE SPECIALIST JIGAR DISEASE VISIT ANNUAL PCP TEAM CHRONIC DISEASE VISIT [facility] Start: 02-15-2023 ANNUAL PCP TEAM PUBLIC FINANCE SPECIALIST JIGAR DISEASE VISIT ANNUAL PCP TEAM CHRONIC DISEASE VISIT [facility] Start: 11-30-2022 Influenza vaccination [facility] Start: 11-22-2022 DIABETES SCREEN DIABETES SCREEN [facility] Start: 11-15-2022 ANNUAL PCP TEAM PUBLIC FINANCE SPECIALIST JIGAR DISEASE VISIT ANNUAL PCP TEAM CHRONIC DISEASE VISIT [facility] Start: 11-15-2022 BP CONTROLLED (<130/80) BP CONTROLLE D (<130/80) [facility] Start: 10-26-2022 BP CONTROLLED (<130/80) BP CONTROLLE D (<130/80) [facility] Start: 2022 SHINGRIX VACCINE (1 of 2) ROMERO GRIX VACCINE (1 of 2) [facility] Start: 09-28-2022 Influenza vaccination INFLUENZA (#1) [facility] Comment on above: Postponed from 11/30 (Declined at this time) Start: 08-15-2022 BP CONTROLLED (<130/80) BP CONTROLLE D (<130/80) [facility] Start: 08-10-2022 ANNUAL PCP TEAM PUBLIC FINANCE SPECIALIST JIGAR DISEASE VISIT ANNUAL PCP TEAM CHRONIC DISEASE VISIT [facility] Start: 08-10-2022 BP CONTROLLED (<130/80) BP CONTROLLE D (<130/80) [facility] Start: 08-10-2022 COVID-19 VACCINE (#1) COVID-19 VACCI NE (#1) [facility] Comment on above: Postponed from 10/03 (Declined at this time) Postponed from 04/05 (Declined at this time) Start: 08-09-2022 Adult depression scr eening assessment DEPRESSION SCREENING [facility] Start: 07-31-2022 Colonoscopy COLONOSCOPY [facility] Start: 07-31-2022 COLORECTAL CANCER SCREENING COLORECTAL CANCER SCREENING [facility] Start: 07-25-2022 ANNUAL PCP TEAM PUBLIC FINANCE SPECIALIST JIGAR DISEASE VISIT ANNUAL PCP TEAM CHRONIC DISEASE VISIT [facility] Start: 05-28-2022 End: 07-28-2022 Protein/Creatinine [Mass Ratio] in Urine PROTEIN CREATININE RATIO Lab Routine Proteinuria, unspecified type Expected: 05/28/2022, Expires: 07/28/2022 [facility] Work Phone: Comment on above: Expected: 05/28/2022 , Expires: 07/28/2022 Start: 11-30-2021 Influenza vaccination [facility] Start: 10-19-2021 ANNUAL PCP TEAM PUBLIC FINANCE SPECIALIST JIGAR DISEASE VISIT ANNUAL PCP TEAM CHRONIC DISEASE VISIT [facility] Start: 08-06-2021 Adult depression scr eening assessment DEPRESSION SCREENING [facility] Start: 08-02-2021 Creatinine measurement Creatinine mo susanne [facility] [employer] Phone: Start: 08-02-2021 Potassium monitoring Potassium monit oring [facility] [employer] Phone: Start: 11-30-2020 Influenza vaccination [facility] Start: 2017 COLOGUARD (FIT-DNA) COLOGUARD (FIT-D NA) [facility] Start: 2017 Colonoscopy COLONOSCOPY [facility] Start: 2017 COLORECTAL CANCER SCREENING COLORECTAL CANCER SCREENING [facility] Start: [address] COLONOGRAPHY [facility] Start: 2017 FECAL OCCULT BLOOD FECAL OCCULT BLOO D [facility] Start: 2017 SIGMOIDOSCOPY SIGMOIDOSCOPY [facility] Start: 2012 Diabetes screen Diabetes screen [facility] [employer] Phone: Start: 10-04-1991 Urine microalbumin profile DTAP,TDAP ,TD (1 - Tdap) [facility] Start: 1990 BP CONTROLLED (<130/80) BP CONTROLLE D (<130/80) [facility] Start: 1988 COVID-19 Vaccine (1) COVID-19 Vaccin e (1) [employer] Work Phone: Start: 10-04-1987 HIV screening HIV screen [facility] Work Phone: Start: 1982 Lipid panel Lipid screen [facility] Work Phone: Start: 1977 COVID-19 VACCINE (1) COVID-19 VACCIN E (1) [facility] Start: 1972 HEPATITIS B (1 of 3 - 3-dose series) HEPATITIS B (1 of 3 - 3-dose series) [facility] Start: 1972 Hepatitis C screening Hepatitis C sc reen [facility] Work Phone: End: 07-25-2022 COLONOSCOPY DIAGNOSTIC COLONOSCOPY DIAGNOSTIC Endoscopy Routine Dark stools 1 Occurrences starting 07/25/2021 until 07/25/2022 [facility] Work Phone: Comment on above: 1 Occurrences starti ng 07/25/2021 until 07/25/2022 Ct thorax w/o contra st material CT CHEST WO IVCON Radiology Timed Lung nodules 09/18/2021 12:09 PM EDT [facility] Work Phone: End: 09-09-2022 Duplex scan extracranial art compl bi study US CAROTID BILAT Radiology Routine Stenosis of carotid artery, unspecified laterality 1 Occurrences starting 08/10/2021 until 09/09/2022 [facility] Work Phone: Comment on above: 1 Occurrences starti ng 08/10/2021 until 09/09/2022 End: 08-10-2022 Echocardiography ECHO Cardiology Routine SOB (shortness of breath) on exertion 1 Occurrences starting 08/10/2021 until 08/10/2022 [facility] Work Phone: Comment on above: 1 Occurrences starti ng 08/10/2021 until 08/10/2022 EKG 12 Lead EKG 12 Lead ECG STAT 08/01/2020 9:26 PM EDT [employer] Work Phone: Oxygen therapy [[facility] Data Set] Initiate Oxygen Therapy Protocol Respiratory Care Routine Daily until discontinued starting 08/02/2020 [employer] Work Phone: Comment on above: Daily until disconti nued starting 08/02/2020 SURGICAL PATHOLOGY [facility] Work Phone: Comment on above: Release Upon Maddyin coreen for 1 Occurrences starting 07/31/2021, 1 completed End: 09-09-2022 Us abdominal real time w/image limited US ABD RT UPPER QUADRANT Radiology Routine Elevated liver enzymes 1 Occurrences starting 08/10/2021 until 09/09/2022 [facility] Work Phone: Comment on above: 1 Occurrences starti ng 08/10/2021 until 09/09/2022 End: 06-20-2023 US KIDNEY/BLADDER US KIDNEY/BLADDER Radiology Routine Proteinuria, unspecified type 1 Occurrences starting 05/21/2022 until 06/20/2023 [facility] Work Phone: Comment on above: 1 Occurrences starti ng 05/21/2022 until 06/20/2023 [facility] Immunizations Immunization Date Immunization Notes Care Provider Fa margaret 11-17-2015 tetanus toxoid, reduced diphtheria toxoid, and acellular pertussis vaccine, adsorbed Huan Cowan [facility] 02-07-2015 influenza virus vaccine, unspecified formulation Huan Cowan [facility] 02-07-2015 influenza, seasonal, injectable Salome Aguillon YARN CLEANER.BLOCKING MACHINE TENDER Work Phone: [facility] NEGATED: Highlighted row has not occurred!01-09-2023 influenza virus vaccine, unspecified formulation Huan Cowan [facility] Payers Date Payer Category Payer Self-pay [id number] 2022 [employer] [id number] 2021 Unknown [id number] 2020 Unknown [facility] [id number] 2020-[facility] [phone] [facility] [address] [facility] [place] [id number] 1.2.840.042170.1.13.159. 2.7.3.083235.315 2020 Unknown 1.2.840.395260. 1.13.159. 2.7.3.288112.315 2020 Unknown [id number] 2020 Unknown [id number] 2020 Unknown [id number] 1.2.840.802461.1.13.239. 2.7.3.801851.315 2020 Private Health Insurance [id number] 1.2.840.960772.1.13.159. 2.7.3.963541.315 2020 Private Health Insurance [id number] 2019 Private Health Insurance 1.2 .840.485667.1.13.159. 2.7.3.311933.315 1972 Unknown [id number] 2.16.840.1.643154.3.579. 2.175 1972 Unknown [id number] 2.16.840.1.405778.3.579. 2.593 1972 Unknown [id number] 2.16.840.1.371941.3.579. 2.1258 1972 Unknown [id number] 2.16.840.1.499781.3.579. 2.9 1972 Unknown [id number] 2.16.840.1.784735.3.579. 2.1258 1972 Unknown [id number] 2.16.840.1.277630.3.579. 2.1259 1972 Unknown [id number] 2.16.840.1.613819.3.579. 2.1259 1972 Unknown [id number] 2.16.840.1.943326.3.579. 2.1259 1972 Unknown [id number] 2.16.840.1.586050.3.579. 2.9 1972 Unknown [id number] 2.16.840.1.960330.3.579. 2.9 1972 Unknown [id number] 2.16.840.1.838661.3.579. 2.125 1972 Unknown [id number] 2.16.840.1.197580.3.579. 2.1259 1972 Unknown [id number] 2.16.840.1.303327.3.579. 2.727 1972 Unknown [id number] 2.16.840.1.753427.3.579. 2.7 1972 Unknown [id number] 2.16.840.1.303288.3.579. 2.727 1972 Unknown [id number] 2.16.840.1.242258.3.579. 2. 1972 Unknown [id number] 2.16.840.1.688254.3.579. 2. 1972 Unknown [id number] 2.16.840.1.950635.3.579. 2.718 1972 Unknown [id number] 2.16.840.1.088408.3.579. 2.8 1972 Unknown [id number] 2.16.840.1.856166.3.579. 2.196 1972 Unknown [id number] 2.16.840.1.146179.3.579. 2.196 1972 Unknown [id number] 2.16.840.1.450377.3.579. 2. 1972 Unknown [id number] 2.16.840.1.977096.3.579. 2.196 1972 Unknown [id number] 2.16.840.1.564983.3.579. 2.196 1972 Unknown [id number] 2.16.840.1.415483.3.579. 2.196 1959 Unknown [id number] Private Health Insurance [facility] [id number] Unknown [id number] 2.16.840.1.770691.3.579. 2.531 Unknown [id number] 2.16.840.1.264553.3.579. 2.531 Unknown [id number] 2.16.840.1.260248.3.579. 2.531 Unknown [id number] 2.16.840.1.798854.3.579. 2.531 Unknown [id number] 2.16.840.1.889673.3.579. 2.531 Social History Date Type Detail Facility Start: 08-02-2020 End: 06-06-2023 Tobacco smoking status NHIS Never smoker [facility] Comment on above: denies current use Start: 02-07-2015 End: 08-02-2020 Tobacco use and exposure Never used [facility] Start: 08-02-2020 Alcohol intake Ex-drinker (finding) [employer] Phone: Start: 1970 Sex Assigned At Not on file [employer] Phone: Start: 11-14-2019 End: 11-15-2021 Exposure to SARS-CoV-2 (event) Not sure [facility] Start: 12-14-2019 End: 03-30-2021 Alcohol intake Current drinker of alcohol (finding) [facility] Start: 08-06-2020 End: 08-20-2022 History SDOH Alcohol Frequency 1 [facility] Start: 08-06-2020 End: 08-20-2022 History SDOH Alcohol Std Drinks 98 [facility] Start: 10-08-2014 History SDOH Alcohol Comment Rare [facility] Start: 08-06-2020 End: 08-20-2022 History SDOH [employer] Phone 5 [facility] Start: 08-06-2020 End: 08-20-2022 History SDOH Social Connections Get Together 2 [facility] Start: 08-06-2020 End: 08-20-2022 History SDOH Physical Activity MPS 3 [facility] Start: 08-06-2020 Education 15 [facility] Tobacco [facility] Comment on above: denies current use Start: 11-23-2019 End: 08-17-2021 Sex Assigned At Male [facility] Start: 1970 Sex Assigned At Male [facility] Tobacco smoking status No Smokin g Status Entered [facility] Start: 01-31-2022 End: 02-10-2022 Exposure to SARS-CoV-2 (event) Unable to assess [facility] Start: 08-20-2022 History SDOH Alcohol Std Drinks 0 [facility] Start: 08-20-2022 History SDOH Physica l Activity DPW 4 [facility] Start: 11-23-2019 End: 08-17-2021 History of Social function [facility] Start: 02-14-2021 Gender identity Identifies as male gender (finding) [facility] Start: 02-14-2021 Sexual orientation Heterosexual (fin ding) [facility] Do you belong to any clubs or organizations such as latter-day groups, unions, fraternal or athletic groups, or school groups? No [facility] Are you now , , , , never or living with a partner? [facility] How often to you hav e a drink containing alcohol? Never [facility] How many standard dr inks containing alcohol do you have on a typical day? Patient refused [facility] Comment on above: denies current use Do you feel stress - tense, restless, nervous, or anxious, or unable to sleep at night because your mind is troubled all the time - these days [OSQ] Only a little [facility] (I/We) worried wheth er (my/our) food would run out before (I/we) got money to buy more. Never true [facility] Medical Equipment Procedure Code Equipment Code Equipment Origin al Text Equipment Identifier Dates {[id number] [facility] Start: 08-23-2021 Clinical Notes 01-07-2020 to 11-11-2023 Note Date & Type Note Facility 11-11-[address] [facility] 10-07-[address] [facility] 09-26-[address] [facility] 09-26-2023 Note Patient Education Ma terials Follows: [facility] 09-19-[address] [facility] 09-06-[address] [facility] 09-06-[address] [facility] 09-06-[address] [facility] 09-05-[address] [facility] 09-05-[address] [facility] 09-05-[address] [facility] 09-04-[address] [facility] 09-04-[address] [facility] 09-04-[address] [facility] is not curre nt but would accept. Per medical team patient should not need HHC at this time. [facility] advised. [facility] 09-04-[address] [facility] 09-04-2023 Note Physical Therapy Patient cannot be seen at this time as he is currently off the floor for echo. Will continue to monitor and eval when appropriate. JOSELINE Lloyd [facility] 09-04-[address] [facility] 09-04-[address] [facility] 09-03-[address] [facility] 09-03-[address] [facility] 09-03-2023 Note Satisfactory for maverick luation. Examination of the ThinPrep slide and cell block reveals inflammatory cells, blood, and debris. [facility] Comment on above: Performed By: #### L AB13 ####[facility] [place] [address] 09-03-2023 Note 11:51 SW sent return referral to [facility] as patient is current with them. Will await PT/OT notes for additional recommendations. OTM will continue to follow. [facility] 09-03-[address] [facility] 08-14-[address] [facility] 08-08-[address] Lasha arrieta. Okay to pull PICC and stop IV therapy but will start pt on PO Amoxicillin 1g BID for 30 days. Pt to get TTE completed soon [facility] 08-07-[address] [facility] 07-25-[address] [facility] 07-17-[address] [facility] 07-17-[address] [facility] 07-05-2023 Note [facility] 07-05-2023 Note [facility] 07-04-2023 Note [facility] 07-04-2023 Note [facility] 07-04-2023 Note [facility] 07-04-2023 Note [facility] 07-03-2023 Note [facility] 07-03-2023 Note [facility] 07-03-[address] [facility] 07-03-2023 Note [facility] 07-03-2023 Note [facility] 07-03-[address] [facility] 07-03-[address] [facility] 07-02-[address] [facility] 07-02-[address] [facility] 07-02-[address] [facility] 07-02-[address] [facility] 07-02-[address] [facility] 07-02-[address] [facility] 07-01-[address] [facility] 07-01-[address] [facility] 07-01-[address] [facility] 07-01-[address] [facility] 07-01-[address] [facility] 07-01-[address] [facility] 07-01-[address] [facility] 06-30-[address] [facility] 06-30-[address] [facility] 06-30-2023 Note terminal worker met wi th patient to discuss discharge plans. Patient reports that he would like to go to [facility]. Referral sent. OTM will continue to follow. [facility] 06-30-[address] [facility] 06-29-[address] [facility] 06-29-[address] [facility] 06-29-[address] [facility] 06-29-[address] [facility] 06-29-[address] [facility] 06-28-[address] [facility] 06-28-[address] [facility] 06-28-[address] [facility] 06-28-[address] [facility] 06-28-[address] [facility] 06-27-[address] [facility] 06-27-[address] [facility] 06-27-[address] [facility] 06-27-[address] [facility] 06-27-[address] [facility] 06-26-2023 Note Verbal order receive d from Dr. Georges George to initiate post operative heart surgery order set. [facility] 06-26-[address] [facility] 06-26-[address] [facility] 06-26-2023 Note INSERTED WITHOUT COM PLICATION USING STERILE TECHNIQUE; DRAINING CLEAR YELLOW URINE; TO BE MONITORED BY ANESTHESIA FOR DURATION OF CASE [facility] 06-26-[address] [facility] 06-26-[address] [facility] 06-25-[address] [facility] 06-25-[address] [facility] 06-24-[address] [facility] 06-24-[address] [facility] 06-24-[address] [facility] 06-24-[address] [facility] 06-24-[address] [facility] 06-24-[address] [facility] 06-24-[address] [facility] 06-24-[address] [facility] 06-23-[address] [facility] 06-23-[address] [facility] 06-23-[address] [facility] 06-22-[address] [facility] 06-22-[address] [facility] 06-22-[address] [facility] 06-21-[address] [facility] 06-21-[address] [facility] 06-21-[address] [facility] 06-14-[address] [facility] 06-14-2023 Note ROS No cardio symptoms concerned States HR has been elevated recently, unsure what the cause has been. Ranges between 95-103. Feels heartbeat through fingers at times [facility] 06-11-2023 Note Patient Education Ma terials Follows: [facility] 05-31-2023 Note [id number]#1.00TIFF [facility] 04-11-2023 Evaluation note Encounter Date Diagnosis Assessment [...] would like to do some PT at [facility]. WIll order Aqua therapy for strenthing and conditioning. Follow up 6 months. Apr, Neck pain (ICD-10 - M54.2) [facility] 12-05-2023 Note [id number]#1.[facility]* Encounter Date Diagnosis [...] improve blood pressure and heart health. Jan, JCAOBY (obstructive sleep apnea) (ICD-10 - G47.33) Maintain compliance with BiPAP Jan, Heart disease, unspecified (ICD-10 - I51.9) Unclear sequelae to heart bruising, continue to consider implications Jan, Lymph edema (ICD-10 - I89.0) Consider related to weight trajectory, discuss treatment [facility] 10-19-2023 Evaluation note* Encounter Date Diagnosis [...] patient to pain management Dr. Fry in [place].-Will refer to physical therapy in [place].-We will get release of information from ANGIE [...] the spine. Will refer to weight management. [facility] 09-17-2023 Evaluation note* Encounter Date Diagnosis [...] spur of left foot (ICD-10 - M77.32) [facility] 07-05-2023 Miscellaneous Notes* Telephone Encounter - Ottoniel Sagastume MA - 2022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 weight managment Diagnosis 1 BMI 50.0-59.9, adult (Z68.43) Referral Organization [facility] urosurger Referring Provider First Name Siri Referring Provider Last Name Damien Referring Provider Specialty Nurse Pract itioner Referred Organization [facility] Referred Provider Reece Cyr Referred Address [address] [facility] [address],[place],[address] Referred Provider Specialty Internal Med icine Referral Priority Routine General Notes Anita Jacobsen 023 01:36:37 PM >Received today and sent P2P Reason evaluate and treat Diagnosis 1 Lumbar radiculopathy , right (M54.16) Referral Organization [facility] urosurgery Referring Provider First Name Siri Referring Provider Last Name Damien Referring Provider Specialty Nurse Pract itioner Referred Organization [facility] Referred Address [address] [place], [place],[address] Referred Provider Specialty Physical The rapist Referral Priority Routine Advance Directives No Advanced Directives Records FoundLatest Code Status on File Code Status Date Activated Date Inactivated Comments Full Code 08/01/2020 11:59 PM Documents on File Type Date Recorded Patient Garage Attendant Expl anation Advance Directive(s) 01/24/2021 2:04 PM Advance Directive(s) 12/27/2020 12:28 PM Documents on File Type Date Recorded Patient Garage Attendant Expl anation Advance Directive(s) 01/24/2021 2:04 PM Advance Directive(s) 12/27/2020 12:28 PM Documents on File Type Date Recorded Patient Garage Attendant Expl anation Advance Directive(s) 07/31/2021 8:28 AM Advance Directive(s) 01/24/2021 2:04 PM Advance Directive(s) 12/27/2020 12:28 PM Documents on File Type Date Recorded Patient Garage Attendant Expl anation Advance Directive(s) 07/31/2021 8:28 AM [...] hematoma, initial encounter Juanita Carmona MD [address] [address] [facility] Reason Onset Date Comments PHMA/Care Gap Outreach [...] NEW HIGH MDM 60-74 MINUTES Salome Aguillon, YARN CLEANER.BLOCKING MACHINE TENDER [address] [place] [address] Referral ID Status Reason Start Date Expiration Date Visits Requested Visits Authorized [id number] Pending Review PCP Requested Referral 08/10/2021 08/10/2022 1 1 Reason Comments Patient Education Assessment Specialty Diagnoses / Procedures Referred By Contac t Referred To Contact Nutrition Diagnoses Morbid obesity with BMI of 50.0-59.9, adult (HCC) Mixed hyperlipidemia Essential hypertension Arthralgia of multiple sites Prediabetes Obstructive sleep apnea syndrome Abnormal weight gain Fatty metamorphosis of liver Procedures CONSULT TO NUTRITION THERAPY OFFICE/OUTPATIENT [facility] MDM 60-74 MINUTES Anh Mena MD [address] [facility], [address] [place] [address] Referral ID Status Reason Start Date Expiration Date Visits Requested Visits Authorized [id number] Pending Review PCP Requested Referral 08/15/2021 11/13/2021 1 1 Reason Comments Medical Weight Management Specialty Diagnoses / Procedures Referred By Contac t Referred To Contact CT IMAGING Diagnoses Lung nodules Procedures CT CHEST WO IVCON CAT SCAN OF CHEST Trey Sharma MD [address] [facility] [address] [place] [address] Ct Imaging Referral ID Status Reason Start Date Expiration Date V isits Requested Visits Authorized [id number] Closed Auto-Generate d Referral 08/11/2021 04/29/2022 1 [...] content) DATE CREATED AUTHOR 08/08/2020 [facility] DATE CREATED AUTHOR AUTHOR'S ORGANIZ ATION 08/01/2021 [facility] DATE CREATED AUTHOR AUTHOR'S ORGANIZ ATION 09/21/2021 [facility] DATE CREATED AUTHOR AUTHOR'S ORGANIZ ATION 04/25/2022 [facility] DATE CREATED AUTHOR AUTHOR'S ORGANIZ ATION 05/27/2022 [facility] DATE CREATED AUTHOR AUTHOR'S ORGANIZ ATION 05/31/2022 [facility] DATE CREATED AUTHOR AUTHOR'S ORGANIZ ATION 08/08/2023 [facility] DATE CREATED AUTHOR AUTHOR'S ORGANIZ ATION 08/29/2023 [facility] DATE CREATED AUTHOR AUTHOR'S ORGANIZ ATION 09/27/2023 [facility] DATE CREATED AUTHOR AUTHOR'S ORGANIZ ATION 10/17/2023 [facility] DATE CREATED AUTHOR AUTHOR'S ORGANIZ ATION 11/16/2023 [facility] DATE CREATED AUTHOR AUTHOR'S ORGANIZ ATION 11/27/2023 [facility] Source Comments (unrecognize d section and content) In the event this informatio n is protected by the Federal Confidentiality of Alcohol and Drug Abuse Patient Records regulations: The Federal rules restrict any use of the information to criminally investigate or prosecute any alcohol or drug abuse patient.[facility] the event this information is protected by the Federal Confidentiality of Alcohol and Drug Abuse Patient Records regulations: The Federal rules restrict any use of the information to criminally investigate or prosecute any alcohol or drug abuse patient.[facility] Center[facility] the event this information is protected by the Federal Confidentiality of Alcohol and Drug Abuse Patient Records regulations: The Federal rules restrict any use of the information to criminally investigate or prosecute any alcohol or drug abuse patient.[facility] the event this information is protected by the Federal Confidentiality of Alcohol and Drug Abuse Patient Records regulations: The Federal rules restrict any use of the information to criminally investigate or prosecute any alcohol or drug abuse patient.[facility] Center[facility] the event this information is protected by the Federal Confidentiality of Alcohol and Drug Abuse Patient Records regulations: The Federal rules restrict any use of the information to criminally investigate or prosecute any alcohol or drug abuse patient.[facility] Center[facility] the event this information is protected by the Federal Confidentiality of Alcohol and Drug Abuse Patient Records regulations: The Federal rules restrict any use of the information to criminally investigate or prosecute any alcohol or drug abuse patient.[facility] Center[facility] the event this information is protected by the Federal Confidentiality of Alcohol and Drug Abuse Patient Records regulations: The Federal rules restrict any use of the information to criminally investigate or prosecute any alcohol or drug abuse patient.[facility] CenterIn the event this information is protected by the Federal Confidentiality of Alcohol and Drug Abuse Patient Records regulations: The Federal rules restrict any use of the information to criminally investigate or prosecute any alcohol or drug abuse patient.[facility] CenterIn the event this information is protected by the Federal Confidentiality of Alcohol and Drug Abuse Patient Records regulations: The Federal rules restrict any use of the information to criminally investigate or prosecute any alcohol or drug abuse patient.[facility] CenterIn the event this information is protected by the Federal Confidentiality of Alcohol and Drug Abuse Patient Records regulations: The Federal rules restrict any use of the information to criminally investigate or prosecute any alcohol or drug abuse patient.[facility] CenterIn the event this information is protected by the Federal Confidentiality of Alcohol and Drug Abuse Patient Records regulations: The Federal rules restrict any use of the information to criminally investigate or prosecute any alcohol or drug abuse patient.[facility] CenterIn the event this information is protected by the Federal Confidentiality of Alcohol and Drug Abuse Patient Records regulations: The Federal rules restrict any use of the information to criminally investigate or prosecute any alcohol or drug abuse patient.[facility] CenterIn the event this information is protected by the Federal Confidentiality of Alcohol and Drug Abuse Patient Records regulations: The Federal rules restrict any use of the information to criminally investigate or prosecute any alcohol or drug abuse patient.[facility] CenterIn the event this information is protected by the Federal Confidentiality of Alcohol and Drug Abuse Patient Records regulations: The Federal rules restrict any use of the information to criminally investigate or prosecute any alcohol or drug abuse patient.[facility] CenterIn the event this information is protected by the Federal Confidentiality of Alcohol and Drug Abuse Patient Records regulations: The Federal rules restrict any use of the information to criminally investigate or prosecute any alcohol or drug abuse patient.[facility] CenterIn the event this information is protected by the Federal Confidentiality of Alcohol and Drug Abuse Patient Records regulations: The Federal rules restrict any use of the information to criminally investigate or prosecute any alcohol or drug abuse patient.[facility] CenterIn the event this information is protected by the Federal Confidentiality of Alcohol and Drug Abuse Patient Records regulations: The Federal rules restrict any use of the information to criminally investigate or prosecute any alcohol or drug abuse patient.[facility] CenterIn the event this information is protected by the Federal Confidentiality of Alcohol and Drug Abuse Patient Records regulations: The Federal rules restrict any use of the information to criminally investigate or prosecute any alcohol or drug abuse patient.[facility] CenterIn the event this information is protected by the Federal Confidentiality of Alcohol and Drug Abuse Patient Records regulations: The Federal rules restrict any use of the information to criminally investigate or prosecute any alcohol or drug abuse patient.[facility] CenterIn the event this information is protected by the Federal Confidentiality of Alcohol and Drug Abuse Patient Records regulations: The Federal rules restrict any use of the information to criminally investigate or prosecute any alcohol or drug abuse patient.[facility] CenterIn the event this information is protected by the Federal Confidentiality of Alcohol and Drug Abuse Patient Records regulations: The Federal rules restrict any use of the information to criminally investigate or prosecute any alcohol or drug abuse patient.[facility] CenterIn the event this information is protected by the Federal Confidentiality of Alcohol and Drug Abuse Patient Records regulations: The Federal rules restrict any use of the information to criminally investigate or prosecute any alcohol or drug abuse patient.[facility] CenterIn the event this information is protected by the Federal Confidentiality of Alcohol and Drug Abuse Patient Records regulations: The Federal rules restrict any use of the information to criminally investigate or prosecute any alcohol or drug abuse patient.[facility] CenterIn the event this information is protected by the Federal Confidentiality of Alcohol and Drug Abuse Patient Records regulations: The Federal rules restrict any use of the information to criminally investigate or prosecute any alcohol or drug abuse patient.[facility] CenterIn the event this information is protected by the Federal Confidentiality of Alcohol and Drug Abuse Patient Records regulations: The Federal rules restrict any use of the information to criminally investigate or prosecute any alcohol or drug abuse patient.[facility] CenterIn the event this information is protected by the Federal Confidentiality of Alcohol and Drug Abuse Patient Records regulations: The Federal rules restrict any use of the information to criminally investigate or prosecute any alcohol or drug abuse patient.[facility] CenterIn the event this information is protected by the Federal Confidentiality of Alcohol and Drug Abuse Patient Records regulations: The Federal rules restrict any use of the information to criminally investigate or prosecute any alcohol or drug abuse patient.[facility] CenterIn the event this information is protected by the Federal Confidentiality of Alcohol and Drug Abuse Patient Records regulations: The Federal rules restrict any use of the information to criminally investigate or prosecute any alcohol or drug abuse patient.[facility] CenterIn the event this information is protected by the Federal Confidentiality of Alcohol and Drug Abuse Patient Records regulations: The Federal rules restrict any use of the information to criminally investigate or prosecute any alcohol or drug abuse patient.[facility] CenterIn the event this information is protected by the Federal Confidentiality of Alcohol and Drug Abuse Patient Records regulations: The Federal rules restrict any use of the information to criminally investigate or prosecute any alcohol or drug abuse patient.[facility] Care Teams (unrecognized sec tion and content) Production Grip Relationship Specialty Start Date End Date Salome Aguillon, YARN CLEANER.BLOCKING MACHINE TENDER [address] [place] [address] PCP - General Family Practice 11/23/19 Production Grip Relationship Specialty Start Date End Date Salome Aguillon, YARN CLEANER.BLOCKING MACHINE TENDER [address] [place] [address] PCP - General Family Practice 11/23/19 Production Grip Relationship Specialty Start Date End Date Salome Aguillon, YARN CLEANER.BLOCKING MACHINE TENDER [address] [place] [address] PCP - General Family Practice 11/23/19 Production Grip Relationship Specialty Start Date End Date Salome Aguillon, YARN CLEANER.BLOCKING MACHINE TENDER [address] [place] [address] PCP - General Family Practice 11/23/19 Production Grip Relationship Specialty Start Date End Date [facility] YARN CLEANER.BLOCKING MACHINE TENDER [address] [place] [address] PCP - General Family Practice 11/23/19 Production Grip Relationship Specialty Start Date End Date [facility] Salome, YARN CLEANER.BLOCKING MACHINE TENDER [address] [place] [address] PCP - General Family Practice 11/23/19 Production Grip Relationship Specialty Start Date End Date [facility] Salome, YARN CLEANER.BLOCKING MACHINE TENDER [address] [place] [address] PCP - General Family Practice 11/23/19 Production Grip Relationship Specialty Start Date End Date [facility], YARN CLEANER.BLOCKING MACHINE TENDER [address] [place] [address] PCP - General Family Practice 11/23/19 Production Grip Relationship Specialty Start Date End Date [facility], YARN CLEANER.BLOCKING MACHINE TENDER [address] [place] [address] PCP - General Family Practice 11/23/19 Production Grip Relationship Specialty Start Date End Date [facility], YARN CLEANER.BLOCKING MACHINE TENDER [address] [place] [address] PCP - General Family Practice 11/23/19 Production Grip Relationship Specialty Start Date End Date [facility] al[facility]con, YARN CLEANER.BLOCKING MACHINE TENDER [address] [place] [address] PCP - General Family Practice 11/23/19 Production Grip Relationship Specialty Start Date End Date [facility], YARN CLEANER.BLOCKING MACHINE TENDER [address] [place] [address] PCP - General Family Practice 11/23/19 Production Grip Relationship Specialty Start Date End Date [facility] Reading[facility] al[facility]con, YARN CLEANER.BLOCKING MACHINE TENDER [address] [place] [address] PCP - General Family Practice 11/23/19 Production Grip Relationship Specialty Start Date End Date Salome Aguillon, YARN CLEANER.BLOCKING MACHINE TENDER [address] [place] [address] PCP - General Family Practice 11/23/19 Production Grip Relationship Specialty Start Date End Date Salome Aguillon, YARN CLEANER.BLOCKING MACHINE TENDER [address] [place] [address] PCP - General Family Practice 11/23/19 Production Grip Relationship Specialty Start Date End Date Salome Aguillon, YARN CLEANER.BLOCKING MACHINE TENDER [address] [place] [address] PCP - General Family Medicine 11/23/19 Production Grip Relationship Specialty Start Date End Date Salome Aguillon, YARN CLEANER.BLOCKING MACHINE TENDER [address] [place] [address] PCP - General Family Medicine 11/23/19 Production Grip Relationship Specialty Start Date End Date Salome Aguillon, YARN CLEANER.BLOCKING MACHINE TENDER [address] [place] [address] PCP - General Family Medicine 11/23/19 Production Grip Relationship Specialty Start Date End Date Salome Aguillon, YARN CLEANER.BLOCKING MACHINE TENDER [address] [place] [address] PCP - General Family Medicine 11/23/19 Production Grip Relationship Specialty Start Date End Date Salome Aguillon, YARN CLEANER.BLOCKING MACHINE TENDER [address] [place] [address] PCP - General Family Medicine 11/23/19 Production Grip Relationship Specialty Start Date End Date Salome Aguillon, YARN CLEANER.BLOCKING MACHINE TENDER [address] [place] [address] PCP - General Family Medicine 11/23/19 Production Grip Relationship Specialty Start Date End Date [facility] Salome, YARN CLEANER.BLOCKING MACHINE TENDER [address] [place] [address] PCP - General Family Medicine 11/23/19 Production Grip Relationship Specialty Start Date End Date [facility] Salome, YARN CLEANER.BLOCKING MACHINE TENDER [address] [place] [address] PCP - General Family Medicine 11/23/19 Production Grip Relationship Specialty Start Date End Date [facility] Salome, YARN CLEANER.BLOCKING MACHINE TENDER [address] [place] [address] PCP - General Family Medicine 11/23/19 Production Grip Relationship Specialty Start Date End Date [facility] Salome, YARN CLEANER.BLOCKING MACHINE TENDER [address] [place] [address] PCP - General Family Medicine 11/23/19 Production Grip Relationship Specialty Start Date End Date [facility] Salome, YARN CLEANER.BLOCKING MACHINE TENDER [address] [place] [address] PCP - General Family Medicine 11/23/19 Production Grip Relationship Specialty Start Date End Date [facility] Salome, YARN CLEANER.BLOCKING MACHINE TENDER [address] [place] [address] PCP - General Family Medicine 11/23/19 Team Status: Active Member Role Status Dates Vonnie Guerrero NP-C Primary Care Provider Active Team Status: Inactive Member Role Status Dates Vonnie Guerrero NP-C Primary Care Provider Active Siri Quezada NP-C Attending Provider Active Team Status: Inactive Member Role Status Dates Salome Aguillon , LICENSED MASTER SOCIAL WORKER-C Primary Care Provider Marcosi tyler Yi NP-C Attending Provider Active Team Status: Inactive Member Role Status Dates Salome Aguillon , LICENSED MASTER SOCIAL WORKER-C Primary Care Provider HAIDER Dyer Attending Provider [...] THE PRIMARY CLINICAL RECORDS. [facility] [employer] provides no warranty or guarantee of the accuracy or completeness of information in this document.
== END 2023-12-30 20:36 | disposition home or self-care (01) ==
LOC: SLEEP 20:36
PROVIDERS: PCP Family Medicine; Visit Provider Family Medicine
DX: G47.33 Obstructive sleep apnea (adult) (pediatric) (principal)
CPT/HCPCS: 95811

== ENCOUNTER 2023-12-31 01:28 | Outpatient (RCR) | payer BC, SELFPAY | END 2024-01-30 23:30 | disposition home or self-care (01) | LOC: MM 01:28 | PROVIDERS: PCP Family Medicine; Visit Provider Internal Medicine | DX: Z51.81 Encounter for therapeutic drug level monitoring (principal); Z79.01 Long term (current) use of anticoagulants; Z95.2 Presence of prosthetic heart valve | CPT/HCPCS: 85610; G0463 ==

== ENCOUNTER 2024-01-27 16:22 | Emergency (ER) | payer BC, SELFPAY ==
[2024-01-27] VITALS (15 sets, daily range): BP systolic 112–138; BP diastolic 67–85; PULSE 81–90; TEMP 36.6; O2SAT 93–97; BMI 44.9
--- NOTE | 2024-01-27 17:01 | XR_ITS ---
The [address] [address] Patient Name: NEHAL BAIG MRN: [id number] date: 1970 Sex: M Assigned Patient Location: ER Current Patient Location: ER Accession/Order Number: [id number] Exam Date: 01/27/2024 17:12 Report Date: 01/27/2024 17:48 At the request of: JOSE BUTTS Procedure: XR chest 2V EXAM: XR chest 2V HISTORY: cp COMPARISON: 08/17/2023 TECHNIQUE: Upright PA and lateral chest x-ray FINDINGS: The heart is not enlarged and the vasculature is not distended. Hardware is in place from sternotomy. No acute infiltrate, effusion or pneumothorax is identified. 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 The osseous structures are grossly intact. XR/XR chest 2V IMPRESSION: No acute infiltrate or evidence of cardiac decompensation. There is evidence of prior surgery, and the overall appearance of the chest is essentially unchanged. Electronically authenticated by: TOMER HALL Date: 01/27/2024 17:48
[2024-01-27 17:09] LABS: Basophils Absolute Auto 0.1 10^3/uL (0.0-0.1); Basophils Percent Auto 0.7 % (0.2-2.0); Eosinophils Absolute Auto 0.1 10^3/uL (0.0-0.7); Eosinophils Percent Auto 1.2 % (0.9-7.0); Hematocrit 46.4 % (42.0-54.0); Hemoglobin 15.6 g/dL (14.0-18.0); Immature Granulocytes Abs Auto 0.04 10^3/uL (0.00-0.03); Immature Granulocytes Pct Auto 0.4 % (0.0-0.5); Lymphocytes Absolute Auto 1.6 10^3/uL (1.2-3.8); Lymphocytes Percent Auto 14.7 % (20.5-60.0); Mean Corpuscular HGB Conc 33.6 g/dL (29.9-35.2); Mean Corpuscular Hemoglobin 28.2 pg (25.9-34.0); Mean Corpuscular Volume 83.9 fL (80.0-94.0); Mean Platelet Volume 10.1 fL (9.5-13.5); Monocytes Absolute Auto 0.8 10^3/uL (0.3-0.8); Monocytes Percent Auto 7.9 % (1.7-12.0); Neutrophils Percent Auto 75.1 % (43.0-75.0); Platelet Count 216 10^3/uL (150-450); Red Blood Count 5.53 10^6/uL (4.70-6.10); Red Cell Distribution Width 16.6 % (11.0-15.0); White Blood Count 10.6 10^3/uL (4.0-11.0)
[2024-01-27 17:16] LABS: Bilirubin Urine NEGATIVE (NEGATIVE); Blood Urine NEGATIVE (NEGATIVE); Clarity Urine CLEAR (CLEAR); Color Urine LT. YELLOW (YELLOW); Glucose Urine UA >=1000 mg/dL (NEGATIVE); Ketones Urine NEGATIVE (NEGATIVE); Leukocyte Esterase Urine NEGATIVE (NEGATIVE); Nitrite Urine NEGATIVE (NEGATIVE); Protein Urine NEGATIVE (NEG/TRACE); Specific Gravity Urine 1.025 (1.005-1.025); Urobilinogen Urine 0.2 EU/dL (0.2-1.0)
--- NOTE | 2024-01-27 17:25 | ED_ITS ---
HPI HPI - General Adult General Chief complaint: Chest Pain Stated complaint: CHEST PAIN Time Seen by Provider: 01/27/24 16:42 Source: patient Mode of arrival: walk-in Limitations: no limitations History of Present Illness HPI narrative: Patient is a 53-year-old male who is presenting to the ER today with chief complaint of midsternal burning sensation that goes along mid sternum, to the midepigastric area, and then to the left upper quadrant. Patient had open heart surgery earlier this year in May. 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 Patient showed me a picture of the rare bacteria infection name. Patient stated that his symptoms have been ongoing since . Patient also is having burning and frequency with urination. Patient has no abdominal pain, nausea or vomiting. No other acute complaints. No fever or chills. No heavy chest pressure, tightness, sharp stabbing. No shortness of breath. No back pain. No headache, no other acute complaints. All systems are negative except as noted/marked. All systems reviewed and otherwise negative. Nurses note and vital signs reviewed and patient is not hypoxic. General: The patient appears well and in no apparent distress. Patient is resting comfortably on cart. Patient is not toxic, lethargic, or listless Skin: Warm, dry, no pallor noted. There is no rash noted. No petechiae, purpura. Head: Normocephalic, atraumatic Eye: Normal conjunctiva, no drainage, EOMI. PERRL Ears, Nose, Mouth, and Throat: oral mucosa is moist Nares patent. Mouth without vesicles. Cardiovascular: Regular Rate and Rhythm, no murmur, gallop, rub. No reproducible tenderness to palpation to mid sternum. Obese, no tenderness to palpation to the right or left upper quadrant, no midepigastric tenderness palpation, Respiratory: Patient is in no distress, no accessory muscle use, lungs are clear to auscultation, no wheezing, rales or rhonchi Back: non-tender, no CVA tenderness bilaterally to percussion. No CT LS midline pain GI: obese, no tenderness to palpation, no masses appreciated. No rebound, guarding, or rigidity noted. No distention Musculoskeletal: Patient has full range of motion of all of the extremities, no motor, sensory, or focal neurological deficits Neurological: A&O x4, normal speech Psychiatric: Cooperative Related Data Home Medications ?Medication ?Instructions ?Recorded ?Confirmed omeprazole 20 mg capsule,delayed 40 mg PO DAILY 01/28/23 12/08/23 release aspirin 81 mg tablet,delayed 81 mg PO DAILY 02/24/23 12/08/23 release (Adult Aspirin Regimen) warfarin 5 mg tablet 2.5 mg PO DAILY 09/02/23 11/25/23 warfarin 5 mg tablet 5 mg PO DAILY 09/02/23 12/08/23 cholecalciferol (vitamin D3) 50 50 mcg PO DAILY 09/16/23 12/08/23 mcg (2,000 unit) capsule gabapentin 400 mg capsule 400 mg PO DAILY 09/16/23 11/25/23 metoprolol succinate 25 mg capsule 25 mg PO DAILY 09/16/23 12/08/23 sprinkle, ext. release 24 hr spironolactone 25 mg tablet 12.5 mg PO DAILY 09/16/23 12/08/23 Previous Rx's ?Medication ?Instructions ?Recorded gabapentin 400 mg capsule See Rx Instructions .Route 09/16/23 .COMPLEX #150 caps hydrocodone 7.5 mg-acetaminophen 1 tab PO QID PRN pain #110 tabs 10/16/23 325 mg tablet hydrocodone 7.5 mg-acetaminophen 1 tab PO QID PRN pain #110 tabs 11/27/23 325 mg tablet metformin 500 mg tablet 500 mg PO DAILY #14 tabs 01/27/24 Allergies Allergy/AdvReac Type Severity Reaction Status Date / Time No Known Drug Allergies Allergy Verified 12/08/23 13:30 Opioid HPI Opioid Management Most Recent Opioid Data: Last Pain Scale 3 11/25/23 08:38 11/25/23 Last Pain Intensity 3 06/20/23 14:22 06/20/23 Last ORT Total Score 0 06/20/23 14:50 06/20/23 Last ORT Risk Category Low Risk 06/20/23 14:50 06/20/23 [facility] Medical History (Updated 01/27/24 @ 18:22 by Christopher Orourke MD) Hypoxia ?R09.02 - Hypoxemia (ICD-10) Community acquired pneumonia ?J18.9 - Pneumonia, unspecified organism (ICD-10) Febrile illness ?R50.9 - Fever, unspecified (ICD-10) Intractable back pain ?M54.9 - Dorsalgia, unspecified (ICD-10) Chronic lumbosacral pain ?M54.50 - Low back pain, unspecified (ICD-10) ?G89.29 - Other chronic pain (ICD-10) Foot pain ?M79.673 - Pain in unspecified foot (ICD-10) Ankle pain ?M25.579 - Pain in unspecified ankle and joints of unspecified foot (ICD-10) Achilles tendinitis ?M76.60 - Achilles tendinitis, unspecified leg (ICD-10) Plantar fascial fibromatosis ?M72.2 - Plantar fascial fibromatosis (ICD-10) Migraine ?G43.909 - Migraine, unspecified, not intractable, without status migrainosus (ICD-10) GERD (gastroesophageal reflux disease) ?K21.9 - Gastro-esophageal reflux disease without esophagitis (ICD-10) Heartburn ?R12 - Heartburn (ICD-10) High cholesterol ?E78.00 - Pure hypercholesterolemia, unspecified (ICD-10) Calcaneal spur ?M77.30 - Calcaneal spur, unspecified foot (ICD-10) Strain of Achilles tendon ?S86.019A - Strain of unspecified Achilles tendon, initial encounter (ICD-10) Low back pain ?M54.50 - Low back pain, unspecified (ICD-10) Kidney stones ?N20.0 - Calculus of kidney (ICD-10) Sleep apnea ?G47.30 - Sleep apnea, unspecified (ICD-10) Hypertension ?I10 - Essential (primary) hypertension (ICD-10) Surgical History Aortic valve replaced ?Z95.2 - Presence of prosthetic heart valve (ICD-10) History of colonoscopy ?Z98.890 - Other specified postprocedural states (ICD-10) History of foot surgery ?Z98.890 - Other specified postprocedural states (ICD-10) H/O vasectomy (2013) ?Z98.52 - Vasectomy status (ICD-10) H/O shoulder replacement ?Z96.619 - Presence of unspecified artificial shoulder joint (ICD-10) History of carpal tunnel release ?Z98.890 - Other specified postprocedural states (ICD-10) Family History Grandmother Family history of CHF (congestive heart failure) Family history of COPD (chronic obstructive pulmonary disease) Mother Family history of COPD (chronic obstructive pulmonary disease) Family history of cancer Other Family history of lung cancer Social History Within the past year, how often did you have a drink containing alcohol: monthly or less Smoking status: Never smoker Non-prescribed substance use: denies use 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[employer] Highest level of school completed/degree received: some college, no degree Are you now , , , , never or living with a partner: living with partner In a typical week, how many times do you talk on the telephone with family, friends, or neighbors: 3 or more times per week How often do you get together with friends or relatives: 3 or more times per week How often do you attend orthodox or congregation services: never Do you belong to any clubs or organizations such as orthodox groups unions, [employer] or athletic groups, or school groups: no Total score: 2 Score interpretation: A score of greater than or equal to 2 indicates the lowest level of social isolation. Little interest or pleasure in doing things: not at all Feeling down, depressed, or hopeless: not at all Feel stressed/tense/nervous/anxious/difficulty sleeping: not at all Do you think of yourself as: straight/heterosexual Gender Identity: male Exam Constitutional Vital Signs, click to edit/add: Last Vital Signs Temp 98 F 01/27/24 16:37 Pulse 82 01/27/24 17:50 Resp 15 01/27/24 17:50 BP 119/76 01/27/24 17:30 Pulse Ox 97 01/27/24 17:50 O2 Del Method Room Air 01/27/24 16:37 Course Vital Signs Vital signs: Vital Signs Temperature 98 F 01/27/24 16:37 Pulse Rate 86 01/27/24 16:37 Respiratory Rate 18 01/27/24 16:37 Blood Pressure 138/85 01/27/24 16:37 Pulse Oximetry 97 01/27/24 16:37 Oxygen Delivery Method Room Air 01/27/24 16:37 Temperature 98 F 01/27/24 16:37 Pulse Rate 82 01/27/24 17:50 Respiratory Rate 15 01/27/24 17:50 Blood Pressure 119/76 01/27/24 17:30 Pulse Oximetry 97 01/27/24 17:50 Oxygen Delivery Method Room Air 01/27/24 16:37 Medical Decision Making [facility] Narrative Medical decision making narrative: Patient EKG, chest x-ray, troponin and lab work showed no acute findings. Patient did have greater than 1000 glucose in his urine. Patient had urine in May and before that with no glucose in his urine. Patient is not diabetic that he is aware of. I had a 10-minute conversation with patient concerning josué betes, treatment, healthy lifestyles, medication needed. Patient will follow-up with his PCP Dr. Parish for further testing, repeat urine, hemoglobin A1c. Patient is prescribed metformin 5 mg only to start daily and to get further tested. Patient has been on metformin previously, and he stated that it did cause diarrhea that he remembered. Patient has been having his chest burning discomfort since . Patient did have Pepcid and GI cocktail which did completely relieve his symptoms. Patient is not having any active chest pain or heaviness or pain at discharge. No acute indication for admission. Patient will follow-up with PCP. No questions discharged. Lab Data Lab results reviewed: Yes I reviewed the patient's lab results Labs: Lab Results 01/27/24 01/27/24 Range/Units 16:48 17:00 WBC 10.6 (4.0-11.0) 10^3/uL RBC 5.53 (4.70-6.10) 10^6/uL Hgb 15.6 (14.0-18.0) g/dL Hct 46.4 (42.0-54.0) % MCV 83.9 (80.0-94.0) fL MCH 28.2 (25.9-34.0) pg MCHC 33.6 (29.9-35.2) g/dL RDW 16.6 H (11.0-15.0) % Plt Count 216 (150-450) 10^3/uL MPV 10.1 (9.5-13.5) fL Neut % (Auto) 75.1 H (43.0-75.0) % Lymph % (Auto) 14.7 L (20.5-60.0) % [place] % (Auto) 7.9 (1.7-12.0) % Eos % (Auto) 1.2 (0.9-7.0) % Baso % (Auto) 0.7 (0.2-2.0) % Neut # (Auto) 8.0 H (1.4-6.5) 10^3/uL Lymph # (Auto) 1.6 (1.2-3.8) 10^3/uL [place] # (Auto) 0.8 (0.3-0.8) 10^3/uL Eos # (Auto) 0.1 (0.0-0.7) 10^3/uL Baso # (Auto) 0.1 (0.0-0.1) 10^3/uL Abs Immat Gran (auto) 0.04 H (0.00-0.03) 10^3/uL Imm/Tot Granulo (auto) 0.4 (0.0-0.5) % Sodium 141 (136-145) mmol/L Potassium 4.5 (3.5-5.1) mmol/L Chloride 103 (98-107) mmol/L Carbon Dioxide 29.0 (21.0-32.0) mmol/L Anion Gap 13.5 BUN 22.0 H (7.0-18.0) mg/dL Creatinine 1.07 (0.70-1.30) mg/dL Est GFR ( Amer) >60 (>=60 mL/min/1.73m^2) Est GFR (Non-Af Amer) >60 (>=60 mL/min/1.73m^2) BUN/Creatinine Ratio 20.6 Glucose 86 (74-106) mg/dL Calcium 9.9 (8.5-10.1) mg/dL Total Bilirubin 0.6 (0.2-1.0) mg/dL AST 10 L (15-37) U/L ALT 21 (16-63) U/L Alkaline Phosphatase 74 (46-116) U/L Troponin I High Sens 4.9 (4.0-76.1) pg/mL Total Protein 7.6 (6.4-8.2) g/dL Albumin 4.3 (3.4-5.0) g/dL Globulin 3.3 g/dL Albumin/Globulin Ratio 1.3 Lipase 57.0 (16.0-77.0) U/L Urine Color Lt. yellow (YELLOW) Urine Clarity Clear (CLEAR) Urine pH 6.0 (5.0-9.0) Ur Specific [place] 1.025 (1.005-1.025) Urine Protein Negative (NEG/TRACE) mg/dL Urine Glucose (UA) >=1000 A (NEGATIVE) mg/dL Urine Ketones Negative (NEGATIVE) mg/dL Urine Occult Blood Negative (NEGATIVE) Urine Nitrite Negative (NEGATIVE) Urine Bilirubin Negative (NEGATIVE) Urine Urobilinogen 0.2 (0.2-1.0) EU/dL Ur Leukocyte Esterase Negative (NEGATIVE) Urine RBC 0-2 (0-2) #/HPF Urine WBC 0-2 A (NONE SEEN) #/HPF Ur Squamous Epith Cells Moderate A (NONE/RARE) #/LPF Urine Crystals None seen (None Seen) #/HPF Urine Bacteria None seen (NONE SEEN) #/HPF Urine Casts None seen (NONE SEEN) #/LPF Urine Mucus None seen (NONE SEEN) Imaging Data CT scan - pelvis: Radiologist's impression: ITS Impressions Chest X-Ray 01/27/24 17:01 IMPRESSION: No acute infiltrate or evidence of cardiac decompensation. There is evidence of prior surgery, and the overall appearance of the chest is essentially unchanged. Electronically authenticated by: TOMER HALL Date: 01/27/2024 17:48 ECG Data Attestation: I personally reviewed and interpreted this ECG as follows: (EKG interpretation. Normal sinus rhythm at 86 beats a minute. Normal axis d eviation. No acute ST elevation, no acute ectopy. T wave inversion throughout the anterior lateral leads. Artifact noted. Compared to EKG on September 02, 2023, patient has similar EKGs changes as today) Discharge Plan Discharge Chief Complaint: Chest Pain Clinical Impression: Chest pain, Diabetes mellitus, new onset Patient Disposition: Home, Self-Care Time of Disposition Decision: 18:23 Condition: Fair Prescriptions / Home Meds: New metformin 500 mg tablet 500 mg PO DAILY Qty: 14 0RF No Action aspirin [Adult Aspirin Regimen] 81 mg tablet,delayed release (DR/EC) 81 mg PO DAILY warfarin 5 mg tablet 2.5 mg PO DAILY Rx Instructions: takes on Sat/ Saturday warfarin 5 mg tablet 5 mg PO DAILY Patient Comments: Takes, Saturday, , , Saturday, Saturday cholecalciferol (vitamin D3) 50 mcg (2,000 unit) capsule 50 mcg PO DAILY gabapentin 400 mg capsule 400 mg PO DAILY metoprolol succinate 25 mg capsule,sprinkle,ER 24hr 25 mg PO DAILY spironolactone 25 mg tablet 12.5 mg PO DAILY hydrocodone-acetaminophen 7.5-325 mg tablet 1 tab PO QID PRN (Reason: pain) Qty: 110 0RF hydrocodone-acetaminophen 7.5-325 mg tablet 1 tab PO QID PRN (Reason: pain) Qty: 110 0RF omeprazole 20 mg capsule,delayed release(DR/EC) 40 mg PO DAILY gabapentin 400 mg capsule See Rx Instructions .ROUTE .COMPLEX Qty: 150 0RF Rx Instructions: 2 tabs in am, 1 tab at noon, and 2 tabs at HS Print Language: Burkinan Instructions: Chest Pain (ED), Type 2 Diabetes in Adults: New Diagnosis (DC), Diabetes and Nutrition (ED), Diabetes and Exercise (ED) Additional Instructions: Follow-up with your PCP for repeat urine testing, additional lab testing, and checking lab work including hemoglobin A1c as discussed. If you are having heartburn or indigestion, use [id number] Pepcid, Nexium, Prilosec, or Zantac. If you are having any other type of acute pain, use Maalox or Mylanta. Referrals: Demetrius Parish MD [Primary Care Provider] - 1 week
[2024-01-27 17:27] LABS: Alanine Aminotransferase 21 U/L (16-63); Albumin Globulin Ratio 1.3; Albumin Level 4.3 g/dL (3.4-5.0); Alkaline Phosphatase 74 U/L (46-116); Anion Gap 13.5; Aspartate Amino Transferase 10 U/L (15-37); BUN Creatinine Ratio 20.6; Bilirubin Total 0.6 mg/dL (0.2-1.0); Calcium 9.9 mg/dL (8.5-10.1); Chloride 103 mmol/L (98-107); Estimated GFR (African America >60 (>=60 mL/min/1.73m^2); Estimated GFR (Non-African Ame >60 (>=60 mL/min/1.73m^2); Globulin 3.3 g/dL; Glucose 86 mg/dL (74-106); Potassium 4.5 mmol/L (3.5-5.1); Sodium 141 mmol/L (136-145); Total Protein 7.6 g/dL (6.4-8.2); Troponin I High Sensitivity 4.9 pg/mL (4.0-76.1)
[2024-01-27 17:27] LABS: Bacteria Urine NONE SEEN #/HPF (NONE SEEN); Cast Seen? NONE SEEN #/LPF (NONE SEEN); Crystals Seen? None Seen #/HPF (None Seen); Mucus Urine NONE SEEN (NONE SEEN); RBC Urine 0-2 #/HPF (0-2); Squamous Epithelial Cell Urine MODERATE #/LPF (NONE/RARE); WBC Urine 0-2 #/HPF (NONE SEEN)
[2024-01-27] MEDS: lidocaine HCL 15 ML, MAG HYDROX/ALUMINUM HYD/SIMETH 30 ML, HYOSCYAMINE SULFATE 0.25 MG PO (17:29)
[2024-01-27] MEDS: FAMOTIDINE/PF 20 MG/2 ML VIAL IV (17:30)
--- NOTE | 2024-01-27 18:45 | PC.NURSE ---
Patient alert and oriented. states he has been feeling increased fatigue. substernal chest pain radiating down esophagus to stomach. 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 also c/o pain and discomfort with urination.
--- NOTE | 2024-01-27 22:49 | ECG_ITS ---
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
== END 2024-01-27 18:56 | disposition home or self-care (01) ==
PROVIDERS: Emergency Provider Emergency Medicine; PCP Family Medicine
DX: R07.9 Chest pain, unspecified (principal); E11.9 Type 2 diabetes mellitus without complications; E66.9 Obesity, unspecified; Z68.41 Body mass index [BMI] 40.0-44.9, adult
CPT/HCPCS: 36415; 71046; 80053; 81001; 83690; 84484; 85025; 93005; 96374; 99285

== ENCOUNTER 2024-01-31 11:12 | Outpatient (RCR) | payer BC, SELFPAY | END 2024-02-29 23:59 | disposition home or self-care (01) | LOC: MM 11:12 | PROVIDERS: PCP Family Medicine; Visit Provider Internal Medicine | DX: Z51.81 Encounter for therapeutic drug level monitoring (principal); Z79.01 Long term (current) use of anticoagulants; Z95.2 Presence of prosthetic heart valve ==

== ENCOUNTER 2024-02-01 08:56 | Outpatient (OUT) | payer BC, SELFPAY ==
--- OUTSIDE RECORDS SUMMARY | 2024-02-01 09:08 | XMS_ITS | CCD ---
Author Organization [facility] Care Team Providers Care Senior Systems Programmer Name Role Phone Pal STAFF RADIOLOGIST - [facility] Primary Care Provide r [facility] Primary Care Unavailable JUANITA CARMONA Consulting Unavailable JUANITA CARMONA Attending Unavailable JUANITA CARMONA Admitting [facility]available [facility] Primary Care Provider [facility] Primary Care Physician Unavaila Nicolasa Barrios Unavailable Unavailable [facility] Primary Care Physician [facility] ST[facility]FF RADIOLOG[facility] Primary Care Provider [facility] STAFF RADIOLOGIST.[facility] Primary Care Provider [facility] STAFF RADIOLOGIST.[facility] Primary Care Provider DR KINGSLEY HERRERA V Consulting Unavailable YRN, DR ARROYO Attending Unavailable YRN, DR ARROYO Admitting Unavailable TOSHA, DR JAYY Marte Consulting Unavailable YRN, DR ARROYO Consulting Unavailable [facility] Referring Unavailable [facility] Primary Care Unavailable ANH MENA Attending Unavailab ANH Morales Referring Unavailab [facility] Primary Care Unavailable [facility] Primary Care Unavailable [facility] Referring Unavailable [facility] Primary Care Unavailable [facility] Attending Unavailable [facility] Referring Unavailable [facility] Primary Care Unavailable [facility] Primary Care Unavailable TREY SHARMA Attending Unavailable TREY SHARMA Referring Unavailable [facility] Attending Unavailable [facility] Primary Care Unavailable [facility] Primary Care Unavailable [facility] Referring Unavailable [facility] Primary Care Unavailable [facility] Attending Unavailable [facility] Referring Unavailable [facility] Primary Care Unavailable [facility] Referring Unavailable [facility] Primary Care Unavailable [facility] Attending Unavailable [facility] Primary Care Unavailable JAYY PATEL Referring Unavailable [facility] Primary Care Unavailable [facility] Attending Unavailable [facility] Primary Care Unavailable ANH MENA Attending Unavailab le [facility], [place] Referring Unavailable ANH MENA Referring Unavailab TARSHA Willson Attending Unavailable [facility] Primary Care Unavailable [facility] Primary Care Unavailable [facility] [place] Referring Unavailable [facility] Primary Care Unavailable [facility] [place] Referring Unavailable Kelly Yi Unavailable Pal, HAIDER [facility] Primary Care Provider HAIDER Yi Attending Provider HAIDER Quezada Attending Provider HAIDER Guerrero Primary Care Provider Siri Quezada Unavailable Vonnie Guerrero Primary Care Physician [phone] Kandis Amado Unavailable HAIDER Aguillon [facility] Primary Care Provider HAIDER Yi [...] Attending Unavailable YolandaVonnie wadsworth L Attending Unavailable [facility] Primary Care Unavailable Joel Bledsoe Attending Unavailable Joel Bledsoe Admitting Unavailable Joel Bledsoe L Admitting Unavailable CHANDRAKANT BERNAL Primary Care Unavailable POLY KAUR Attending Unavailable Siri Quezada Admitting Unavailable Yolanda, Vonnie Moran Primary Care Unavailable Siri Quezada Attending Unavailable Damien, Siri Admitting Unavailable Yolanda, Vonnie Moran Primary Care Unavailable Damien, Siri Attending Unavailable Damien, Siri Admitting Unavailable [facility] Unavailabl e Quezada, Siri Attending Unavailable Huan Cowan Attending Unavailable Huan Cowan Admitting Unavailable Kelly Yi Attending Unavailable Kelly Yi Admitting Unavailable [facility] Unavailabl e GEORGE, PAUL Admitting Unavailable GEORGE, [...] Referring Unavailabl e ELTARADHA, KENDALL Attending Unavailable ELPROSPERHAWLucia, EHAB Attending Unavailable ISAIAS DEMPSEY Attending Unavailabl e ANNABELLA CHEN Attending Unavailable CARLEEN MONTALVO Attending Unavailable OVITT, NINFA Attending Unavailable CANDICE, Attending Unavailable ELTAHAWY, EHAB Attending Unavailable GUSTAVOANNABELLA GUO Attending Unavailable GEORGE, PAUL Referring Unavailable RUPERT ANGELES Attending Unavailable ISAIAS DEMPSEY Referring Unavailabl e KUISAIAS DOHERTY Referring Unavailabl e KUISAIAS DOHERTY Referring Unavailabl e KUISAIAS DOHETRY J Referring Unavailabl e KUCHAS, ISAIAS Herbert Referring Unavailabl e CANDICE, Referring Unavailable CANDICE, Referring Unavailable ROSELYN, ISAIAS Herbert Referring Unavailabl e KUCHAS, ISAIAS Herbert Referring Unavailabl e KUCHAS, ISAIAS Herbert Referring Unavailabl e Giedraitis , Brenton Reid Attending Unavailable Giedraitis , Andgorge Reid Attending Unavailable Giedraitis , Andrius Franklin Attending Unavailable Giedraitis , Andrius Vyttam Attending Unavailable Giedraitis , Andrius Vytautteena Attending Unavailable Giedraitis , Andrius Jayjayyttam Attending Unavailable Pal LOO.FRAMEMAN Salome Primary Care Provider Allergies Allergy Classification Reported Allergen(s) Allergy Type Date of Onset Reaction(s) Facility Unclassified (1 source) No Known Medication Allergies; Translations: [No Known Medication Allergies] Propensity to adverse reactions to drug (disorder) [facility] Repository (1 source) atorvastatin; Translations: [ATORVASTATIN] Drug Allergy 4 [facility] Repository Medications Current Medications Medication Drug [...] day(s), # 9 cap(s), Refills(s) 0, Pharmacy: [facility] #37, 185.5, cm, 08/08/21 12:06:00 EDT, [...] constipation, # 20 cap(s), Refills(s) 0, Pharmacy: [facility] #37, 185.5, cm, 08/08/21 12:06:00 EDT, Height/Length [...] milk, # 60 tab(s), Refills(s) 0, Pharmacy: [facility] #37, 185.5, cm, 08/08/21 12:06:00 EDT, Height/Length [...] Daily, # 90 tab(s), Refills(s) 3, Pharmacy: [facility]/pharmacy #[id number], 185.5, cm, 01/09/23 16:37:00 EDT, [...] tablet (2 sources) Muscle Relaxant Start: End: take 1 tablet by mouth four times [...] Start: 03-23-[address] [facility] once daily Prilosec 20 mg Cap - DR 20 mg, Oral, Daily, Refills(s) 0 Start Date: 03/23/17 Status: Ordered Start: 2016 take [address] [facility] once daily Omeprazole 40 mg capsule Indications: Gastroesophageal reflux disease, esophagitis presence not specified Take 1 capsule by mouth once daily. 30 capsule 11 2016 Active take 1 tablet by [facility] once daily PriLOSEC OTC 20 MG 1 tablet 30 minutes before morning meal Orally Once a day Active End: 07-25-2021 Omeprazole Magnesium (PRILOS EC OTC) 20 mg tablet 2 tablet 0 07/25/2021 Discontinued (Discontinued by Patient) Comment on above: Take [address] [facility] once daily. 2 tablet ondansetron [...] Starting 08/01/20 at 2358 polyethylene glycol 3350 82554 mg powder for oral solution (1 source) [...] tab(s), Refill(s) 0, 1-2 tab(s) Oral q4hr, [facility] #37, 185.5, cm, 08/08/21 12:06:00 EDT, [...] autopap titration study. Please fax results to [phone]. DX: JACOBY G47.33 1 Each 0 11/08/2016 09/13/2020 Discontinued Comment on above: Please perform autop ap titration study. Please fax results to [phone]. DX: JACOBY G47.33 doxepin hydrochloride 10 mg [...] on above: Take [address] [facility] daily with dinner. 1 ml [...] 10 mL injection (DEFINITY) polyethylene glycol 3350 357093 mg / potassium chloride 2970 mg / sodium bicarbonate 6740 mg / sodium chloride 5860 mg / sodium sulfate 51141 mg powder for oral solution (14 sources) [...] disease (2 sources) Atherosclerotic heart disease of [place] coronary artery without angina pectoris; Translations: [Atherosclerotic heart disease of [place] coronary artery without angina pectoris] Onset: 4 [...] pain 09-18-2013 Episodic Other non-traumatic joint disorders (2 sources) Pain in left shoulder; Translations: [Pain in joint, shoulder region] 12-17-2019 Episodic Other non-traumatic joint disorders (1 source) Pain in left ankle and joints of left foot Episodic Other non-traumatic joint disorders (1 source) Pain of left wrist; Translations: [Pain in left wrist] 12-12-2020 Episodic Other non-traumatic joint disorders (1 source) Pain of right wrist; Translations: [Pain in right wrist] 12-12-2020 Episodic Other nutritional; endocrine; and metabolic disorders [...] [Morbid obesity with BMI of 50.0-59.9, adult ([facility])] Onset: 0 Chronic Other nutritional; endocrine; and metabolic disorders (4 sources) Body mass index (BMI) 50.0-59.9, adult; Translations: [Morbid obesity with BMI of 50.0-59.9, adult ([facility])] Onset: 0 Chronic Other nutritional; endocrine; and [...] Reference Range Facility 36on 11-12-2023 36 Normal [facility] 36on 10-07-[address] [facility] Follow-Upon 10-07-2023 Follow-Up [facility] Orders Onlyon 10-07-2023 Orders Only Normal [facility] Telephoneon 10-07-2023 Telephone Normal [facility] ED Clinical Summaryon 2023 ED Clinical Summary [facility] ? 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 Arrival: 09/26/2023 09:05:07 Discharge: 09/26/2023 10:39:00 LOS: 000 01:34 Check In: 09/26/2023 09:05:07 Checkout: 09/26/2023 10:39:00 Address: [address] [place] [address] PCP: CHANDRAKANT BERNAL PROVIDER INFORMATION Provider Role [...] Instructions: Follow-Up: With: Address: When: CHANDRAKANT BERNAL [address] [place] [address], [facility] [[email or web address] [place], [place] [id number] Business (1) , only if needed DIAGNOSIS: Physical exam Patient Understands: Yes - Patient/family/caregiver verbalizes understanding of instructions given Comment: Normal [facility] ED Patient Summaryon 024 ED Patient Summary [facility] ? Urgent Care [address] [place] [address] PATIENT DISCHARGE INSTRUCTIONS Patient Information Name: NEHAL BAIG Age: 52 Years Date of : 1970 Reason For Visit: Medical screening exam; DOT PHYSICAL Arrival Time: 09/26/2023 09:05:07 Primary Care Physician: CHANDRAKANT BERNAL Attending Physician: Joel Bledsoe PA-C Comment: Patient Education With: Address: When: CHANDRAKANT BERNAL [address] [place] [address], [facility] [[email or web address] [place], [place] [id number] Business (1) , only if needed Medication Information: The exam and treatment you received today in the [facility] were for an urgent problem and are not intended as complete care. It is important for you to follow up with a doctor, nurse practitioner, or physician?s reading assistant for ongoing care. If your symptoms [...] we can reach you if necessary. [facility] Emergency Department has provided you with a complete list of medications post discharge. 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 assistant education director/provider of your visit and for further instruction [...] Diagnosis: Diagnoses This Visit Medical screening exam ([id number]) Physical exam (Z00.00) If you received any [...] Standard Urin (more content not included)... 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 POCT Glucose Levelon 024 Glucose [Mass/Vol] 112 mg/dL Normal 74-118 [facility] Comment on above: Result Comment: OPR_ ID=[email or web address],TGC FLAG = False,Meter:[id number] Stone [employer] Sawyer:Remy Montes Performed By: #### 4 [id number] ####[facility] (DEFAULT)[address] [place] [address] UA Standardon 09-26-2023 Breakpoint UA [facility] Comment on above: Performed By: #### 1 [id number] #### [facility] (DEFAULT) [address] [place] [address] Color (U) Yellow [facility] Comment on above: Performed By: #### 1 [id number] #### [facility] (DEFAULT) [address] [place] [address] Glucose (U) [Mass/Vol] mg/dL Normal [facility] Comment on above: Performed By: #### 1 [id number] #### [facility] (DEFAULT) [address] [place] [address] Ketones Ql (U) TRACE Normal [facility] Comment on above: Performed By: #### 1 [id number] #### [facility] (DEFAULT) [address] [place] [address] UA Bilirubin Negative Normal [facility] Comment on above: Performed By: #### 1 [id number] #### [facility] (DEFAULT) [address] [place] [address] UA Blood Negative Normal [facility] Comment on above: Performed By: #### 1 [id number] #### [facility] (DEFAULT) [address] [place] [address] UA Clarity CLEAR Normal CLEAR [facility] Comment on above: Performed By: #### 1 [id number] #### [facility] (DEFAULT) [address] [place] [address] UA Leuk Est Negative Normal NEGATIVE [facility] Comment on above: Performed By: #### 1 [id number] #### [facility] (DEFAULT) [address] [place] [address] UA Nitrite Negative Normal NEGATIVE [facility] Comment on above: Performed By: #### 1 [id number] #### [facility] (DEFAULT) [address] [place] [address] UA pH 6.0 Normal 5-8 [facility] Comment on above: Performed By: #### 1 [id number] #### [facility] (DEFAULT) [address] [place] [address] UA Protein 100 Abnormal NEGATIVE [facility] Comment on above: Performed By: #### 1 [id number] #### [facility] (DEFAULT) [address] [place] [address] UA Spec Grav >=1.030 Normal 1.001-1.035 [facility] Comment on above: Performed By: #### 1 [id number] #### [facility] (DEFAULT) [address] [place] [address] UA Urobilinogen 0.2 mg/dL Normal 0.2-1.0 [facility] Comment on above: Performed By: #### 1 [id number] #### [facility] (DEFAULT) [address] [place] [address] Urine Source Clean Catch Normal [facility] Comment on above: Performed By: #### 1 [id number] #### [facility] (DEFAULT) [address] [place] [address] Urgent Care Note- Provideron 09-26-2023 Urgent Care [...] history): All Problems Hypertension / SNOMED CT 3276245629 / Confirmed GERD (gastroesophageal reflux disease) / SNOMED CT 871510350 / Confirmed Diabetes / SNOMED CT 700667387 / Confirmed Objective CONST: -Obese -Acute distress: [...] Plan Assessment and Plan: Diagnosis: Physical exam ([id number] Z00.00). Orders Orders Patient Care: Glucose POC [...] 4 months ago. 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 Patient also shows a echocardiogram from 1 week ago that shows an ejection fraction of 35%. Patient's recent INR's are not in range of 2.5-3.5 which is required by mechanical heart valve. I discussed this with him indicated that he will need a letter releasing him stating he is okay to drive from his supply teacher, I indicated that he needs an echocardiogram [...] [Verified on: 09/26/2023 11:04 EDT] POLY KAUR Normal [facility] [place] 024 Urgent Care Record [facility] ? Urgent Care [address] [place] [address] PATIENT DISCHARGE INSTRUCTIONS Patient Information Name: NEHAL [...] legal documents With: Address: When: CHANDRAKANT BERNAL [address] [place] [address] [place] [address] Business (1) , only if needed Medication Information: The exam and treatment you received today in the [facility] were for an urgent problem and are not intended as complete care. It is important for you to follow up with a doctor, nurse practitioner, or physician?s reading assistant for ongoing care. If your symptoms [...] we can reach you if necessary. [facility] has provided you with a complete list of medications post discharge. 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 assistant education director/provider of your visit and for further instruction [...] for Disease Control and Prevention November 2013 [facility] Abstracton 09-20-2023 Abstract Normal [facility] Follow-Upon 09-19-20[address] [facility] 30on 09-06-[address] [facility] 30 Normal [facility] BASIC METABOLIC PANELon 06-0 Anion gap [Moles/Vol] 13 mmol/L Normal 7-20 [facility] Comment on above: Performed By: #### L AB15 ####[facility] (BEAKER)[address] [place] [address] Calcium [Mass/Vol] 9.8 mg/dL Normal 8.6-10.3 [facility] Comment on above: Performed By: #### L [id number] ####[facility] (BEAKER)[address] [place] [address] Chloride [Moles/Vol] 97 mmol/L Low 98-107 [facility] Comment on above: Performed By: #### L AB15 ####[facility] (BEAKER)[address] [place] [address] CO2 [Moles/Vol] 31 mmol/L Normal 21-31 [facility] Comment on above: Performed By: #### L AB15 ####[facility] (BEAKER)[address] [place] [address] Creatinine [Mass/Vol] 1.03 mg/dL Normal 0.70-1.30 [facility] Comment on above: Performed By: #### L AB15 ####[facility] (BEAKER)[address] [place] [address] GLOMERULAR FILTRATION RATE ML/MIN/1.73 SQ M.PREDICTED 88.5 mL/min/1.73m*2 Normal >60.[address] [facility] Comment on above: Result Comment: The [facility]???s estimated glomerular filtration rate (eGFR) will [...] of individuals. Performed By: #### L AB15 ####[facility] ([facility] [place] [address] Glucose [Mass/Vol] 140 mg/dL High 70-100 [facility] Comment on above: Performed By: #### L [id number] ####[facility] ([facility])[address] [place] [address] Potassium [Moles/Vol] 4.6 mmol/L Normal 3.5-5.1 [facility] Comment on above: Performed By: #### L [id number] ####[facility] ([facility])[address] [place] [address] Sodium [Moles/Vol] 136 mmol/L Normal 136-145 [facility] Comment on above: Performed By: #### L [id number] ####[facility] ([facility])[address] [place] [address] Urea nitrogen [Mass/Vol] 17 mg/dL Normal 7-25 [facility] Comment on above: Performed By: #### L [id number] ####[facility] ([facility])[address] [place] [address] UREA NITROGEN/CREATININE (MASS RATIO) IN SER/PLAS 16.5 Normal [facility] Comment on above: Performed By: #### L [id number] ####[facility] ([facility])[address] [place] [address] CBCon 09-06-2023 Erythrocyte distribution width (RBC) [Ratio] 15.3 % High 11.5-15.0 [facility] Comment on above: Performed By: #### L [id number] ####[facility] ([facility] [place] [address] ERYTHROCYTE MEAN CORPUSCULAR HEMOGLOBIN CONCENTRATION (G/DL) BY AUTOMATED 29.9 g/dL Low 32.0-35.0 [facility] Comment on above: Performed By: #### L [id number] ####[facility] ([facility] [place] [address] Hematocrit (Bld) [Volume fraction] 40.1 % Normal 39.0-55.0 [facility] Comment on above: Performed By: #### L [id number] ####[facility] (BEAKER)[address] [place] [address] Hemoglobin (Bld) [Mass/Vol] 12.0 g/dL Low 13.0-17.0 [facility] Comment on above: Performed By: #### L [id number] ####[facility] ([facility] [place] [address] MCH (RBC) [Entitic mass] 23.9 pg Low 27.0-33.0 [facility] Comment on above: Performed By: #### L [id number] ####[facility] ([facility] [place] [address] MCV (RBC) [Entitic vol] 79.7 fL Low 82.0-98.0 [facility] Comment on above: Performed By: #### L [id number] ####[facility] ([facility] [place] [address] PLATELETS (10*3/UL) IN BLOOD AUTOMATED COUNT 273 10*3/uL Normal 150-400 [facility] Comment on above: Performed By: #### L [id number] ####[facility] (BEAKER)[address] [place] [address] RBC (Bld) [#/Vol] 5.03 10*6/uL Normal 4.20-5.70 [facility] Comment on above: Performed By: #### L [id number] ####[facility] (BEAKER)[address] [place], [place] [address] WBC (Bld) [#/Vol] 6.25 10*3/uL Normal 4.00-10.60 [facility] Comment on above: Performed By: #### L [id number] ####[facility] (BEAKER)[address] [place] [address] DSon 09-06-2023 DS Normal [facility] MAGNESIUMon 09-06-2023 Magnesium [Mass/Vol] 2.1 mg/dL Normal 1.9-2.7 [facility] Comment on above: Performed By: #### L [id number] ####[facility] (BEAKER)[address] [facility] [place] [address] PHOSPHORUSon 09-06-2023 Magnesium [Mass/Vol] 5.0 mg/dL Normal 2.5-5.0 [facility] Comment on above: Performed By: #### L AB113 ####[facility] (BEAKER)[address] [place] [address] PROTIME-INRon 09-06-2023 INR IN PPP BY COAGULATION ASSAY 1.58 High 0.90-1.10 [facility] Comment on above: Result Comment: ACCC [...] CHEST 1995;108:231S-246S. Performed By: #### L [id number] ####[facility] (BEAKER)[address] [facility] [place] [address] PROTHROMBIN TIME (PT) IN PPP BY COAGULATION ASSAY 18.7 Seconds High 12.3-14.8 [facility] Comment on above: Performed By: #### L [id number] ####[facility] (BEAKER)[address] [place] [address] 30on 09-05-2023 30 Normal [facility] 30 Normal [facility] BASIC METABOLIC PANELon 06-0 Anion gap [Moles/Vol] 12 mmol/L Normal 7-20 [facility] Comment on above: Performed By: #### L AB15 ####[facility] (BEAKER)[address] [place] [address] Calcium [Mass/Vol] 9.5 mg/dL Normal 8.6-10.3 [facility] Comment on above: Performed By: #### L AB15 ####[facility] (BEAKER)[address] [place] [address] Chloride [Moles/Vol] 96 mmol/L Low 98-107 [facility] Comment on above: Performed By: #### L AB15 ####[facility] (BEAKER)[address] [place] [address] CO2 [Moles/Vol] 32 mmol/L High 21-31 [facility] Comment on above: Performed By: #### L AB15 ####[facility] (BEAKER)[address] [place] [address] Creatinine [Mass/Vol] 0.96 mg/dL Normal 0.70-1.30 [facility] Comment on above: Performed By: #### L AB15 ####[facility] (BEAKER)[address] [place] [address] GLOMERULAR FILTRATION RATE ML/MIN/1.73 SQ M.PREDICTED 96.3 mL/min/1.73m*2 Normal >60.[address] [facility] Comment on above: Result Comment: [facility] Center???s estimated glomerular filtration rate (eGFR) will [...] of individuals. Performed By: #### L [id number] ####[facility] ([facility] [place] [address] Glucose [Mass/Vol] 102 mg/dL High 70-100 [facility] Comment on above: Performed By: #### L [id number] ####[facility] ([facility])[address] [place] [address] Potassium [Moles/Vol] 4.6 mmol/L Normal 3.5-5.1 [facility] Comment on above: Performed By: #### L [id number] ####[facility] ([facility])[address] [place] [address] Sodium [Moles/Vol] 135 mmol/L Low 136-145 [facility] Comment on above: Performed By: #### L [id number] ####[facility] ([facility])[address] [place] [address] Urea nitrogen [Mass/Vol] 15 mg/dL Normal 7-25 [facility] Comment on above: Performed By: #### L [id number] ####[facility] ([facility])[address] [place] [address] UREA NITROGEN/CREATININE (MASS RATIO) IN SER/PLAS 15.6 Normal [facility] Comment on above: Performed By: #### L [id number] ####[facility] ([facility])[address] [place] [address] CBCon 09-05-2023 Erythrocyte distribution width (RBC) [Ratio] 15.5 % High 11.5-15.0 [facility] Comment on above: Performed By: #### L [id number] ####[facility] ([facility])[address] [place] [address] ERYTHROCYTE MEAN CORPUSCULAR HEMOGLOBIN CONCENTRATION (G/DL) BY AUTOMATED 30.5 g/dL Low 32.0-35.0 [facility] Comment on above: Performed By: #### L [id number] ####[facility] ([facility])[address] [place] [address] Hematocrit (Bld) [Volume fraction] 38.0 % Low 39.0-55.0 [facility] Comment on above: Performed By: #### L [id number] ####[facility] ([facility])[address] [place] [address] Hemoglobin (Bld) [Mass/Vol] 11.6 g/dL Low 13.0-17.0 [facility] Comment on above: Performed By: #### L [id number] ####[facility] ([facility])[address] [place] [address] MCH (RBC) [Entitic mass] 23.9 pg Low 27.0-33.0 [facility] Comment on above: Performed By: #### L [id number] ####[facility] ([facility])[address] [place] [address] MCV (RBC) [Entitic vol] 78.4 fL Low 82.0-98.0 [facility] Comment on above: Performed By: #### L [id number] ####[facility] ([facility])[address] [place] [address] PLATELETS (10*3/UL) IN BLOOD AUTOMATED COUNT 247 10*3/uL Normal 150-400 [facility] Comment on above: Performed By: #### L [id number] ####[facility] ([facility])[address] [place] [address] RBC (Bld) [#/Vol] 4.85 10*6/uL Normal 4.20-5.70 [facility] Comment on above: Performed By: #### L [id number] ####[facility] ([facility])[address] [place] [address] WBC (Bld) [#/Vol] 6.30 10*3/uL Normal 4.00-10.60 [facility] Comment on above: Performed By: #### L [id number] ####[facility] ([facility])[address] [address] MAGNESIUMon 09-05-2023 Magnesium [Mass/Vol] 2.0 mg/dL Normal 1.9-2.7 [facility] Comment on above: Performed By: #### L [id number] ####[facility] ([facility])[address] [place] [address] PHOSPHORUSon 09-05-2023 Magnesium [Mass/Vol] 5.2 mg/dL High 2.5-5.0 [facility] Comment on above: Performed By: #### L [id number] ####[facility] ([facility])[address] [place] [address] PROTIME-INRon 09-05-2023 INR IN PPP BY COAGULATION ASSAY 1.64 High 0.90-1.10 [facility] Comment on above: Result Comment: ACCC [...] CHEST 1995;108:231S-246S. Performed By: #### L [id number] ####[facility] ([facility])[address] [address] PROTHROMBIN TIME (PT) IN PPP BY COAGULATION ASSAY 19.2 Seconds High 12.3-14.8 [facility] Comment on above: Performed By: #### L [id number] ####[facility] ([facility])[address] [place] [address] 30on 09-04-2023 30 Normal [facility] 30 Normal [facility] BASIC METABOLIC PANELon 06 Anion gap [Moles/Vol] 12 mmol/L Normal 7-20 [facility] Comment on above: Performed By: #### L [id number] ####[facility] ([facility])[address] [address] Calcium [Mass/Vol] 9.1 mg/dL Normal 8.6-10.3 [facility] Comment on above: Performed By: #### L [id number] ####[facility] ([facility])[address] [address] Chloride [Moles/Vol] 96 mmol/L Low 98-107 [facility]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 ####[facility] ([facility])[address] [place] [address] Creatinine [Mass/Vol] 1.02 mg/dL Normal 0.70-1.30 [facility] Comment on above: Performed By: #### L [id number] ####[facility] ([facility])[address] [place] [address] GLOMERULAR FILTRATION RATE ML/MIN/1.73 SQ M.PREDICTED 89.5 mL/min/1.73m*2 Normal >60.[address] [facility] Comment on above: Result Comment: The [facility]???s estimated glomerular filtration rate (eGFR) will [...] of individuals. Performed By: #### L [id number] ####[facility] ([facility])[address] [place] [address] Glucose [Mass/Vol] 101 mg/dL High 70-100 [facility] Comment on above: Performed By: #### L [id number] ####[facility] ([facility] [place] [address] Potassium [Moles/Vol] 3.9 mmol/L Normal 3.5-5.1 [facility] Comment on above: Performed By: #### L [id number] ####[facility] ([facility] [place] [address] Sodium [Moles/Vol] 135 mmol/L Low 136-145 [facility] Comment on above: Performed By: #### L [id number] ####[facility] ([facility])[address] [place] [address] Urea nitrogen [Mass/Vol] 14 mg/dL Normal 7-25 [facility] Comment on above: Performed By: #### L [id number] ####[facility] ([facility])[address] [place] [address] UREA NITROGEN/CREATININE (MASS RATIO) IN SER/PLAS 13.7 Normal [facility] Comment on above: Performed By: #### L [id number] ####[facility] [address] CBCon 07-05-2023 Erythrocyte distribution width (RBC) [Ratio] 15.7 % High 11.5-15.0 [facility] Comment on above: Performed By: #### L [id number] ####[facility] ([facility])[address] [place] [address] ERYTHROCYTE MEAN CORPUSCULAR HEMOGLOBIN CONCENTRATION (G/DL) BY AUTOMATED 31.8 g/dL Low 32.0-35.0 [facility] Comment on above: Performed By: #### L [id number] ####[facility] [place] [address] Hematocrit (Bld) [Volume fraction] 26.1 % Low 39.0-55.0 [facility] Comment on above: Performed By: #### L [id number] ####[facility] [address] Hemoglobin (Bld) [Mass/Vol] 8.3 g/dL Low 13.0-17.0 [facility] Comment on above: Performed By: #### L [id number] ####[facility] ([facility] [place] [address] MCH (RBC) [Entitic mass] 28.2 pg Normal 27.0-33.0 [facility] Comment on above: Performed By: #### L [id number] ####[facility] ([facility] [place] [address] MCV (RBC) [Entitic vol] 88.8 fL Normal 82.0-98.0 [facility] Comment on above: Performed By: #### L [id number] ####[facility] ([facility])[address] [address] PLATELETS (10*3/UL) IN BLOOD AUTOMATED COUNT 216 10*3/uL Normal 150-400 [facility] Comment on above: Performed By: #### L [id number] ####[facility] ([facility])[address] [place] [address] RBC (Bld) [#/Vol] 2.94 10*6/uL Low 4.20-5.70 [facility] Comment on above: Performed By: #### L [id number] ####[facility] ([facility])[address] [place] [address] WBC (Bld) [#/Vol] 4.87 10*3/uL Normal 4.00-10.60 [facility] Comment on above: Performed By: #### L [id number] ####[facility] ([facility])[address] [place] [address] DSon 07-05-2023 DS Normal [facility] Letter (Out)on 07-05-2023 Letter (Out) [facility] MAGNESIUMon 07-05-2023 Magnesium [Mass/Vol] 1.9 mg/dL Normal 1.9-2.7 [facility] Comment on above: Performed By: #### L [id number] ####[facility] ([facility])[address] [place] [address] POCT GLUCOSE METER UNSOLICIT ED RESULTSon 07-05-2023 Glucose [Mass/Vol] 123 mg/dL High 70-105 [facility] Comment on above: Order Comment: Waive d Testing in the ED is performed under the ED CLIA certificate #[id number]. Result Comment: [email or web address] Performed By: #### L [id number] ####[facility] ([facility])[address] [place] [address] Glucose [Mass/Vol] 112 mg/dL High 70-105 [facility] Comment on above: Order Comment: Waive d Testing in the ED is performed under the ED CLIA certificate #[id number]. Result Comment: [email or web address] Performed By: #### L [id number] ####[facility] ([facility])[address] [place] [address] PROTIME-INRon 07-05-2023 INR IN PPP BY COAGULATION ASSAY 2.17 High 0.90-1.10 [facility] Comment on above: Result Comment: ACCC [...] CHEST 1995;108:231S-246S. Performed By: #### L [id number] ####[facility] ([facility])[address] [place] [address] PROTHROMBIN TIME (PT) IN PPP BY COAGULATION ASSAY 24.3 Seconds High 12.3-14.8 [facility] Comment on above: Performed By: #### L [id number] ####[facility] ([facility])[address] [place] [address] 30on 07-04-2023 30 Normal [facility] 30 Normal [facility] 30 Normal [facility] ANTI-XA (LOW MOLECULAR WGT H EPARIN LVL)on 07-04-2023 LMW HEPARIN (U/ML) IN PPP BY CHROMOGENIC METHOD 1.00 IU/mL Normal 0.6-1.2 [facility] Comment on above: Order Comment: For [...] and LMWH. Performed By: #### L [id number] ####[facility] ([facility]ER)[address] [place] [address] BASIC METABOLIC PANELon Anion gap [Moles/Vol] 10 mmol/L Normal 7-20 [facility] Comment on above: Performed By: #### L [id number] ####[facility] ([facility])[address] [facility] [place] [address] Calcium [Mass/Vol] 8.6 mg/dL Normal 8.6-10.3 [facility] Comment on above: Performed By: #### L [id number] ####[facility] ([facility])[address] [place] [address] Chloride [Moles/Vol] 103 mmol/L Normal 98-107 [facility] Comment on above: Performed By: #### L [id number] ####[facility] ([facility])[address] [facility] [place] [address] CO2 [Moles/Vol] 28 mmol/L Normal 21-31 [facility] Comment on above: Performed By: #### L [id number] ####[facility] ([facility])[address] [place] [address] Creatinine [Mass/Vol] 1.04 mg/dL Normal 0.70-1.30 [facility] Comment on above: Performed By: #### L [id number] ####[facility] ([facility])[address] [place] [address] GLOMERULAR FILTRATION RATE ML/MIN/1.73 SQ M.PREDICTED 87.5 mL/min/1.73m*2 Normal >60.[address] [facility] Comment on above: Result Comment: The [facility]???s estimated glomerular filtration rate (eGFR) will [...] of individuals. Performed By: #### L [id number] ####[facility] ([facility])[address] [place] [address] Glucose [Mass/Vol] 91 mg/dL Normal 70-100 [facility] Comment on above: Performed By: #### L [id number] ####[facility] ([facility])[address] [place] [address] Potassium [Moles/Vol] 4.6 mmol/L Normal 3.5-5.1 [facility] Comment on above: Performed By: #### L [id number] ####[facility] ([facility])[address] [place] [address] Sodium [Moles/Vol] 136 mmol/L Normal 136-145 [facility] Comment on above: Performed By: #### L [id number] ####[facility] ([facility])[address] [place] [address] Urea nitrogen [Mass/Vol] 13 mg/dL Normal 7-25 [facility] Comment on above: Performed By: #### L [id number] ####[facility] ([facility])[address] [place] [address] UREA NITROGEN/CREATININE (MASS RATIO) IN SER/PLAS 12.5 Normal [facility] Comment on above: Performed By: #### L [id number] ####[facility] ([facility])[address] [place] [address] CBCon 07-04-2023 Erythrocyte distribution width (RBC) [Ratio] 15.8 % High 11.5-15.0 [facility] Comment on above: Performed By: #### L [id number] ####[facility] ([facility])[address] [place] [address] ERYTHROCYTE MEAN CORPUSCULAR HEMOGLOBIN CONCENTRATION (G/DL) BY AUTOMATED 32.0 g/dL Normal 32.0-35.0 [facility] Comment on above: Performed By: #### L [id number] ####[facility] ([facility])[address] [place] [address] Hematocrit (Bld) [Volume fraction] 24.7 % Low 39.0-55.0 [facility] Comment on above: Performed By: #### L [id number] ####[facility] ([facility])[address] [place] [address] Hemoglobin (Bld) [Mass/Vol] 7.9 g/dL Low 13.0-17.0 [facility] Comment on above: Performed By: #### L [id number] ####[facility] [place] [address] MCH (RBC) [Entitic mass] 28.9 pg Normal 27.0-33.0 [facility] Comment on above: Performed By: #### L [id number] ####[facility] [place] [address] MCV (RBC) [Entitic vol] 90.5 fL Normal 82.0-98.0 [facility] Comment on above: Performed By: #### L [id number] ####[facility] [place] [address] PLATELETS (10*3/UL) IN BLOOD AUTOMATED COUNT 243 10*3/uL Normal 150-400 [facility] Comment on above: Performed By: #### L [id number] ####[facility] ([facility])[address] [place] [address] RBC (Bld) [#/Vol] 2.73 10*6/uL Low 4.20-5.70 [facility] Comment on above: Performed By: #### L [id number] ####[facility] ([facility])[address] [place] [address] WBC (Bld) [#/Vol] 5.14 10*3/uL Normal 4.00-10.60 [facility] Comment on above: Performed By: #### L [id number] ####[facility] ([facility])[address] [place] [address] MAGNESIUMon 07-04-2023 Magnesium [Mass/Vol] 1.9 mg/dL Normal 1.9-2.7 [facility] Comment on above: Performed By: #### L [id number] ####[facility] ([facility])[address] [place] [address] POCT GLUCOSE METER UNSOLICIT ED RESULTSon 07-04-2023 Glucose [Mass/Vol] 112 mg/dL High 70-105 [facility] Comment on above: Order Comment: Waive d Testing in the ED is performed under the ED CLIA certificate #[id number]. Result Comment: [email or web address] Performed By: #### L [id number] ####[facility] ([facility])[address] [place] [address] Glucose [Mass/Vol] 130 mg/dL High 70-105 [facility] Comment on above: Order Comment: Waive d Testing in the ED is performed under the ED CLIA certificate #[id number]. Result Comment: [email or web address] Performed By: #### L [id number] ####[facility] [place] [address] Glucose [Mass/Vol] 127 mg/dL High 70-105 [facility] Comment on above: Order Comment: Waive d Testing in the ED is performed under the ED CLIA certificate #[id number]. Result Comment: [email or web address] Performed By: #### L [id number] ####[facility] ([facility])[address] [place] [address] Glucose [Mass/Vol] 113 mg/dL High 70-105 [facility] Comment on above: Order Comment: Waive d Testing in the ED is performed under the ED CLIA certificate #[id number]. Result Comment: [email or web address] Performed By: #### L [id number] ####[facility] ([facility])[address] [place] [address] PROTIME-INRon 07-04-2023 INR IN PPP BY COAGULATION ASSAY 1.77 High 0.90-1.10 [facility] Comment on above: Result Comment: ACCC [...] CHEST 1995;108:231S-246S. Performed By: #### L [id number] ####[facility] ([facility])[address] [place] [address] PROTHROMBIN TIME (PT) IN PPP BY COAGULATION ASSAY 20.7 Seconds High 12.3-14.8 [facility] Comment on above: Performed By: #### L [id number] ####[facility] [place] [address] 30on 07-03-2023 30 Normal [facility] ANTI-XA (HEPARIN LEVEL)on HEPARIN UNFRACTIONATED (U/ML) IN PPP BY CHROMOGENIC METHOD 0.12 IU/mL Invalid Interpretation Code 0.3-0.7 [facility] Comment on above: Result Comment: Douglass roxaban and Apixaban will interfere with the anti Xa assay used to monitor UFH and LMWH. Performed By: #### L [id number] ####[facility] ([facility])[address] [place] [address] BASIC METABOLIC PANELon Anion gap [Moles/Vol] 11 mmol/L Normal 7-20 [facility] Comment on above: Performed By: #### L [id number] ####[facility] ([facility])[address] [place] [address] Calcium [Mass/Vol] 8.9 mg/dL Normal 8.6-10.3 [facility] Comment on above: Performed By: #### L [id number] ####[facility] ([facility] [place] [address] Chloride [Moles/Vol] 101 mmol/L Normal 98-107 [facility] Comment on above: Performed By: #### L [id number] ####[facility] (BEAKER)[address] [place] [address] CO2 [Moles/Vol] 28 mmol/L Normal 21-31 [facility] Comment on above: Performed By: #### L [id number] ####[facility] ([facility] [place] [address] Creatinine [Mass/Vol] 1.03 mg/dL Normal 0.70-1.30 [facility] Comment on above: Performed By: #### L [id number] ####[facility] ([facility] [place] [address] GLOMERULAR FILTRATION RATE ML/MIN/1.73 SQ M.PREDICTED 88.5 mL/min/1.73m*2 Normal >60.[address] [facility] Comment on above: Result Comment: The [facility]???s estimated glomerular filtration rate (eGFR) will [...] of individuals. Performed By: #### L [id number] ####[facility] ([facility])[address] [place] [address] Glucose [Mass/Vol] 87 mg/dL Normal 70-100 [facility] Comment on above: Performed By: #### L [id number] ####[facility] ([facility])[address] [place] [address] Potassium [Moles/Vol] 4.4 mmol/L Normal 3.5-5.1 [facility] Comment on above: Performed By: #### L [id number] ####[facility] ([facility])[address] [place] [address] Sodium [Moles/Vol] 136 mmol/L Normal 136-145 [facility] Comment on above: Performed By: #### L [id number] ####[facility] ([facility] [place] [address] Urea nitrogen [Mass/Vol] 13 mg/dL Normal 7-25 [facility] Comment on above: Performed By: #### L [id number] ####[facility] ([facility] [place] [address] UREA NITROGEN/CREATININE (MASS RATIO) IN SER/PLAS 12.6 Normal [facility] Comment on above: Performed By: #### L [id number] ####[facility] ([facility])[address] [place] [address] CBCon 07-03-2023 Erythrocyte distribution width (RBC) [Ratio] 15.5 % High 11.5-15.0 [facility] Comment on above: Performed By: #### L [id number] ####[facility] ([facility])[address] [address] ERYTHROCYTE MEAN CORPUSCULAR HEMOGLOBIN CONCENTRATION (G/DL) BY AUTOMATED 31.9 g/dL Low 32.0-35.0 [facility] Comment on above: Performed By: #### L [id number] ####[facility] ([facility])[address] [place] [address] Hematocrit (Bld) [Volume fraction] 25.4 % Low 39.0-55.0 [facility] Comment on above: Performed By: #### L [id number] ####[facility] ([facility])[address] [place] [address] Hemoglobin (Bld) [Mass/Vol] 8.1 g/dL Low 13.0-17.0 [facility] Comment on above: Performed By: #### L [id number] ####[facility] ([facility])[address] [place] [address] MCH (RBC) [Entitic mass] 28.8 pg Normal 27.0-33.0 [facility] Comment on above: Performed By: #### L [id number] ####[facility] ([facility])[address] [place] [address] MCV (RBC) [Entitic vol] 90.4 fL Normal 82.0-98.0 [facility] Comment on above: Performed By: #### L [id number] ####[facility] ([facility])[address] [place] [address] PLATELETS (10*3/UL) IN BLOOD AUTOMATED COUNT 247 10*3/uL Normal 150-400 [facility] Comment on above: Performed By: #### L [id number] ####[facility] ([facility])[address] [place] [address] RBC (Bld) [#/Vol] 2.81 10*6/uL Low 4.20-5.70 [facility] Comment on above: Performed By: #### L [id number] ####[facility] ([facility])[address] [place] [address] WBC (Bld) [#/Vol] 4.31 10*3/uL Normal 4.00-10.60 [facility] Comment on above: Performed By: #### L [id number] ####[facility] ([facility])[address] [place] [address] MAGNESIUMon 07-03-2023 Magnesium [Mass/Vol] 2.0 mg/dL Normal 1.9-2.7 [facility] Comment on above: Performed By: #### L [id number] ####[facility] ([facility])[address] [place] [address] POCT GLUCOSE METER UNSOLICIT ED RESULTSon 07-03-2023 Glucose [Mass/Vol] 127 mg/dL High 70-105 [facility] Comment on above: Order Comment: Waive d Testing in the ED is performed under the ED CLIA certificate #[id number]. Result Comment: [email or web address] Performed By: #### L [id number] ####[facility] ([facility])[address] [place] [address] Glucose [Mass/Vol] 129 mg/dL High 70-105 [facility] Comment on above: Order Comment: Waive d Testing in the ED is performed under the ED CLIA certificate #[id number]. Result Comment: [email or web address] Performed By: #### L [id number] ####[facility] ([facility])[address] [place] [address] Glucose [Mass/Vol] 135 mg/dL High 70-105 [facility] Comment on above: Order Comment: Waive d Testing in the ED is performed under the ED CLIA certificate #[id number]. Result Comment: [email or web address] Performed By: #### L [id number] ####[facility] ([facility])[address] [place] [address] Glucose [Mass/Vol] 99 mg/dL Normal 70-105 [facility] Comment on above: Order Comment: Waive d Testing in the ED is performed under the ED CLIA certificate #[id number]. Result Comment: [email or web address] Performed By: #### L [id number] ####[facility] ([facility])[address] [place] [address] PROTIME-INRon 07-03-2023 INR IN PPP BY COAGULATION ASSAY 1.62 High 0.90-1.10 [facility] Comment on above: Result Comment: ACCC [...] CHEST 1995;108:231S-246S. Performed By: #### L [id number] ####[facility] ([facility])[address] [place] [address] PROTHROMBIN TIME (PT) IN PPP BY COAGULATION ASSAY 19.3 Seconds High 12.3-14.8 [facility] Comment on above: Performed By: #### L [id number] ####[facility] ([facility])[address] [place] [address] 30on 07-02-2023 30 The patient is Moder ately Stable - Low risk of patient condition declining or worsening The patient's goals for the shift include comfort, rest The clinical goals for the shift include Stable vitals, comfort Normal [facility] 30 Normal [facility] 30 Normal [facility] ANTI-XA (HEPARIN LEVEL)on HEPARIN UNFRACTIONATED (U/ML) IN PPP BY CHROMOGENIC METHOD 0.47 IU/mL Normal 0.3-0.7 [facility] Comment on above: Result Comment: Sofy roxaban and Apixaban will interfere with the anti Xa assay used to monitor UFH and LMWH. Performed By: #### L [id number] ####[facility] ([facility])[address] [place] [address] BASIC METABOLIC PANELon Anion gap [Moles/Vol] 12 mmol/L Normal 7-20 [facility] Comment on above: Performed By: #### L [id number] ####[facility] ([facility] [place] [address] Calcium [Mass/Vol] 8.9 mg/dL Normal 8.6-10.3 [facility] Comment on above: Performed By: #### L [id number] ####[facility] (BEAKER)[address] [place] [address] Chloride [Moles/Vol] 97 mmol/L Low 98-107 [facility] Comment on above: Performed By: #### L [id number] ####[facility] (BE[facility]ER)[address] [place] [address] CO2 [Moles/Vol] 28 mmol/L Normal 21-31 [facility] Comment on above: Performed By: #### L [id number] ####[facility] ([facility]ER)[address] [place] [address] Creatinine [Mass/Vol] 1.00 mg/dL Normal 0.70-1.30 [facility] Comment on above: Performed By: #### L [id number] ####[facility] ([facility] [place] [address] GLOMERULAR FILTRATION RATE ML/MIN/1.73 SQ M.PREDICTED 91.7 mL/min/1.73m*2 Normal >60.[address] [facility] Comment on above: Result Comment: The [facility]???s estimated glomerular filtration rate (eGFR) will [...] of individuals. Performed By: #### L [id number] ####[facility] ([facility])[address] [place] [address] Glucose [Mass/Vol] 100 mg/dL Normal 70-100 [facility] Comment on above: Performed By: #### L [id number] ####[facility] ([facility])[address] [place] [address] Potassium [Moles/Vol] 3.9 mmol/L Normal 3.5-5.1 [facility] Comment on above: Performed By: #### L [id number] ####[facility] ([facility])[address] [place] [address] Sodium [Moles/Vol] 133 mmol/L Low 136-145 [facility] Comment on above: Performed By: #### L [id number] ####[facility] ([facility] [address] Urea nitrogen [Mass/Vol] 10 mg/dL Normal 7-25 [facility] Comment on above: Performed By: #### L [id number] ####[facility] ([facility])[address] [place] [address] UREA NITROGEN/CREATININE (MASS RATIO) IN SER/PLAS 10.0 Normal [facility] Comment on above: Performed By: #### L [id number] ####[facility] ([facility])[address] [place] [address] CBC WITH AUTO DIFFERENTIALon 07-02-2023 Basophils (Bld) [#/Vol] 0.05 10*3/uL Normal 0.00-0.20 [facility] Comment on above: Performed By: #### L [id number] ####[facility] ([facility])[address] [place] [address] Basophils/100 WBC (Bld) 0.9 % Normal 0.0-1.0 [facility] Comment on above: Performed By: #### L [id number] ####[facility] ([facility])[address] [place] [address] Eosinophils (Bld) [#/Vol] 0.27 10*3/uL Normal 0.00-0.50 [facility] Comment on above: Performed By: #### L [id number] ####[facility] ([facility])[address] [place] [address] Eosinophils/100 WBC (Bld) 4.6 % Normal 0.0-6.0 [facility] Comment on above: Performed By: #### L [id number] ####[facility] ([facility])[address] [place] [address] Erythrocyte distribution width (RBC) [Ratio] 15.4 % High 11.5-15.0 [facility] Comment on above: Performed By: #### L [id number] ####[facility] ([facility])[address] [place] [address] ERYTHROCYTE MEAN CORPUSCULAR HEMOGLOBIN CONCENTRATION (G/DL) BY AUTOMATED 32.7 g/dL Normal 32.0-35.0 [facility] Comment on above: Performed By: #### L [id number] ####[facility] ([facility])[address] [place] [address] Hematocrit (Bld) [Volume fraction] 27.2 % Low 39.0-55.0 [facility] Comment on above: Performed By: #### L [id number] ####[facility] ([facility]AKER)[address] [place] [address] Hemoglobin (Bld) [Mass/Vol] 8.9 g/dL Low 13.0-17.0 [facility] Comment on above: Performed By: #### L [id number] ####[facility] ([facility]ER)[address] [place] [address] Immature granulocytes (Bld) [#/Vol] 0.04 10*3/uL Normal 0.00-0.20 [facility] Comment on above: Performed By: #### L [id number] ####[facility] ([facility]ER)[address] [place] [address] Immature granulocytes/100 WBC (Bld) 0.7 % Normal 0.0-1.0 [facility] Comment on above: Performed By: #### L [id number] ####[facility] ([facility]ER)[address] [place] [address] Lymphocytes (Bld) [#/Vol] 1.10 10*3/uL Low 1.20-4.00 [facility] Comment on above: Performed By: #### L [id number] ####[facility] ([facility]ER)[address] [place] [address] Lymphocytes/100 WBC (Bld) 18.8 % Low 20.0-45.0 [facility] Comment on above: Performed By: #### L [id number] ####[facility] ([facility]ER)[address] [place] [address] MCH (RBC) [Entitic mass] 29.0 pg Normal 27.0-33.0 [facility] Comment on above: Performed By: #### L [id number] ####[facility] ([facility]ER)[address] [place] [address] MCV (RBC) [Entitic vol] 88.6 fL Normal 82.0-98.0 [facility] Comment on above: Performed By: #### L [id number] ####[facility] (BEAKER)[address] [place] [address] Monocytes (Bld) [#/Vol] 0.73 10*3/uL Normal 0.10-1.00 [facility] Comment on above: Performed By: #### L [id number] ####[facility] ([facility]ER)[address] [place] [address] Monocytes/100 WBC (Bld) 12.5 % High 5.0-12.0 [facility] Comment on above: Performed By: #### L [id number] ####[facility] ([facility]ER)[address] [place] [address] Neutrophils (Bld) [#/Vol] 3.67 10*3/uL Normal 1.60-7.60 [facility] Comment on above: Performed By: #### L [id number] ####[facility] ([facility]ER)[address] [place] [address] Neutrophils/100 WBC (Bld) 62.5 % Normal 40.0-72.0 [facility] Comment on above: Performed By: #### L [id number] ####[facility] ([facility]AKER)[address] [place] [address] NRBC (PER 100 WBCS) BY AUTOMATED COUNT 0.0 % Normal 0 [facility] Comment on above: Performed By: #### L [id number] ####[facility] ([facility]ER)[address] [place] [address] PLATELETS (10*3/UL) IN BLOOD AUTOMATED COUNT 292 10*3/uL Normal 150-400 [facility] Comment on above: Performed By: #### L [id number] ####[facility] ([facility]ER)[address] [place] [address] RBC (Bld) [#/Vol] 3.07 10*6/uL Low 4.20-5.70 [facility] Comment on above: Performed By: #### L [id number] ####[facility] ([facility]ER)[address] [place] [address] WBC (Bld) [#/Vol] 5.86 10*3/uL Normal 4.00-10.60 [facility] Comment on above: Performed By: #### L [id number] ####[facility] ([facility])[address] [place] [address] MAGNESIUMon 07-02-2023 Magnesium [Mass/Vol] 2.0 mg/dL Normal 1.9-2.7 [facility] Comment on above: Performed By: #### L [id number] ####[facility] ([facility])[address] [place] [address] NURSNOTEon 07-02-2023 NURSNOTE Heparin level 0.47, no need for rate change at this time. Safety Maintained. Normal [facility] POCT GLUCOSE METER UNSOLICIT ED RESULTSon 07-02-2023 Glucose [Mass/Vol] 118 mg/dL High 70-105 [facility] Comment on above: Order Comment: Waive d Testing in the ED is performed under the ED CLIA certificate #[id number]. Result Comment: [email or web address] Performed By: #### L [id number] ####[facility] ([facility])[address] [place] [address] Glucose [Mass/Vol] 154 mg/dL High 70-105 [facility] Comment on above: Order Comment: Waive d Testing in the ED is performed under the ED CLIA certificate #[id number]. Result Comment: [email or web address] Performed By: #### L [id number] ####[facility] ([facility])[address] [address] Glucose [Mass/Vol] 138 mg/dL High 70-105 [facility] Comment on above: Order Comment: Waive d Testing in the ED is performed under the ED CLIA certificate #[id number]. Result Comment: [email or web address] [email or web address] Performed By: #### L [id number] ####[facility] ([facility])[address] [address] Glucose [Mass/Vol] 106 mg/dL High 70-105 [facility] Comment on above: Order Comment: Waive d Testing in the ED is performed under the ED CLIA certificate #[id number]. Result Comment: [facility] [email or web address] Performed By: #### L [id number] ####[facility] ([facility]ER)[address] [place] [address] PROTIME-INRon 07-02-2023 INR IN PPP BY COAGULATION ASSAY 1.45 High 0.90-1.10 [facility] Comment on above: Result Comment: ACCC [...] CHEST 1995;108:231S-246S. Performed By: #### L [id number] ####[facility] ([facility]ER)[address] [place] [address] PROTHROMBIN TIME (PT) IN PPP BY COAGULATION ASSAY 17.7 Seconds High 12.3-14.8 [facility] Comment on above: Performed By: #### L [id number] ####[facility] (BEAKER)[address] [place] [address] 30on 07-01-2023 30 Normal [facility] 30 Normal [facility] 30 Normal [facility] 30 The patient is Moder ately Stable - Low risk of patient condition declining or worsening The patient's goals for the shift include comfort The clinical goals for the shift include safety Normal [facility] ANTI-XA (HEPARIN LEVEL)on HEPARIN UNFRACTIONATED (U/ML) IN PPP BY CHROMOGENIC METHOD 0.38 IU/mL Normal 0.3-0.7 [facility] Comment on above: Result Comment: Sofy roxaban and Apixaban will interfere with the anti Xa assay used to monitor UFH and LMWH. Performed By: #### L [id number] ####[facility] (BEAKER)[address] [place] [address] BASIC METABOLIC PANELon 04-0 Anion gap [Moles/Vol] 12 mmol/L Normal 7-20 [facility] Comment on above: Performed By: #### L [id number] ####[facility] ([facility]ER)[address] [place] [address] Calcium [Mass/Vol] 8.6 mg/dL Normal 8.6-10.3 [facility] Comment on above: Performed By: #### L [id number] ####[facility] (BE[facility]ER)[address] [place] [address] Chloride [Moles/Vol] 95 mmol/L Low 98-107 [facility] Comment on above: Performed By: #### L [id number] ####[facility] (BEAKER)[address] [place] [address] CO2 [Moles/Vol] 30 mmol/L Normal 21-31 [facility] Comment on above: Performed By: #### L [id number] ####[facility] (BEAKER)[address] [place] [address] Creatinine [Mass/Vol] 0.89 mg/dL Normal 0.70-1.30 [facility] Comment on above: Performed By: #### L [id number] ####[facility] (BEAKER)[address] [place] [address] GLOMERULAR FILTRATION RATE ML/MIN/1.73 SQ M.PREDICTED 104.4 mL/min/1.73m*2 Normal >60.0 [facility] Comment on above: Result Comment: [facility]???s estimated glomerular filtration rate (eGFR) will [...] of individuals. Performed By: #### L [id number] ####[facility] ([facility])[address] [place] [address] Glucose [Mass/Vol] 95 mg/dL Normal 70-100 [facility] Comment on above: Performed By: #### L [id number] ####[facility] ([facility])[address] [place] [address] Potassium [Moles/Vol] 3.6 mmol/L Normal 3.5-5.1 [facility] Comment on above: Performed By: #### L [id number] ####[facility] ([facility])[address] [place] [address] Sodium [Moles/Vol] 133 mmol/L Low 136-145 [facility] Comment on above: Performed By: #### L [id number] ####[facility] ([facility])[address] [place] [address] Urea nitrogen [Mass/Vol] 9 mg/dL Normal 7-25 [facility] Comment on above: Performed By: #### L [id number] ####[facility] ([facility])[address] [address] UREA NITROGEN/CREATININE (MASS RATIO) IN SER/PLAS 10.1 Normal [facility] Comment on above: Performed By: #### L [id number] ####[facility] ([facility])[address] [place] [address] CBCon 07-01-2023 Erythrocyte distribution width (RBC) [Ratio] 15.3 % High 11.5-15.0 [facility] Comment on above: Performed By: #### L [id number] ####[facility] [place] [address] ERYTHROCYTE MEAN CORPUSCULAR HEMOGLOBIN CONCENTRATION (G/DL) BY AUTOMATED 33.1 g/dL Normal 32.0-35.0 [facility] Comment on above: Performed By: #### L [id number] ####[facility] ([facility] [place], [place] [address] Hematocrit (Bld) [Volume fraction] 24.2 % Low 39.0-55.0 [facility] Comment on above: Performed By: #### L [id number] ####[facility] ([facility] [place] [address] Hemoglobin (Bld) [Mass/Vol] 8.0 g/dL Low 13.0-17.0 [facility] Comment on above: Performed By: #### L [id number] ####[facility] ([facility] [place] [address] MCH (RBC) [Entitic mass] 29.1 pg Normal 27.0-33.0 [facility] Comment on above: Performed By: #### L [id number] ####[facility] (BEAKER)[address] [place], [place] [address] MCV (RBC) [Entitic vol] 88.0 fL Normal 82.0-98.0 [facility] Comment on above: Performed By: #### L [id number] ####[facility] ([facility])[address] [place] [address] PLATELETS (10*3/UL) IN BLOOD AUTOMATED COUNT 218 10*3/uL Normal 150-400 [facility] Comment on above: Performed By: #### L [id number] ####[facility] ([facility]ER)[address] [place] [address] RBC (Bld) [#/Vol] 2.75 10*6/uL Low 4.20-5.70 [facility] Comment on above: Performed By: #### L [id number] ####[facility] ([facility])[address] [place] [address] WBC (Bld) [#/Vol] 4.96 10*3/uL Normal 4.00-10.60 [facility] Comment on above: Performed By: #### L [id number] ####[facility] ([facility])[address] [place] [address] CONSULTon 07-01-2023 CONSULT Normal [facility] MAGNESIUMon 07-01-2023 Magnesium [Mass/Vol] 2.0 mg/dL Normal 1.9-2.7 [facility] Comment on above: Performed By: #### L [id number] ####[facility] ([facility])[address] [place] [address] POCT GLUCOSE METER UNSOLICIT ED RESULTSon 07-01-2023 Glucose [Mass/Vol] 128 mg/dL High 70-105 [facility] Comment on above: Order Comment: Waive d Testing in the ED is performed under the ED CLIA certificate #[id number]. Result Comment: [email or web address] Performed By: #### L [id number] ####[facility] ([facility]ub[facility])[address] [place] [address] Glucose [Mass/Vol] 119 mg/dL High 70-105 [facility] Comment on above: Order Comment: Waive d Testing in the ED is performed under the ED CLIA certificate #[id number]. Result Comment: [email or web address] Performed By: #### L [id number] ####[facility] ([facility])[address] [place] [address] Glucose [Mass/Vol] 151 mg/dL High 70-105 [facility] Comment on above: Order Comment: Waive d Testing in the ED is performed under the ED CLIA certificate #[id number]. Result Comment: [email or web address] Performed By: #### L [id number] ####[facility] ([facility])[address] [facility] [place] [address] Glucose [Mass/Vol] 119 mg/dL High 70-105 [facility] Comment on above: Order Comment: Waive d Testing in the ED is performed under the ED CLIA certificate #[id number]. Result Comment: [email or web address] Performed By: #### L [id number] ####[facility] ([facility])[address] [facility] [place] [address] Glucose [Mass/Vol] 121 mg/dL High 70-105 [facility] Comment on above: Order Comment: Waive d Testing in the ED is performed under the ED CLIA certificate #[id number]. Result Comment: [email or web address] Performed By: #### L [id number] ####[facility] ([facility])[address] [place] [address] PROTIME-INRon 07-01-2023 INR IN PPP BY COAGULATION ASSAY 1.37 High 0.90-1.10 [facility] Comment on above: Result Comment: ACCC [...] CHEST 1995;108:231S-246S. Performed By: #### L [id number] ####[facility] [place] [address] PROTHROMBIN TIME (PT) IN PPP BY COAGULATION ASSAY 16.9 Seconds High 12.3-14.8 [facility] Comment on above: Performed By: #### L [id number] ####[facility] ([facility] [place] [address] 30on 06-30-2023 30 Normal [facility] ANTI-XA (HEPARIN LEVEL)on HEPARIN UNFRACTIONATED (U/ML) IN PPP BY CHROMOGENIC METHOD 0.39 IU/mL Normal 0.3-0.7 [facility] Comment on above: Result Comment: Douglass roxaban and Apixaban will interfere with the anti Xa assay used to monitor UFH and LMWH. Performed By: #### L [id number] ####[facility] ([facility])[address] [place] [address] BASIC METABOLIC PANELon 06-01 Anion gap [Moles/Vol] 11 mmol/L Normal 7-20 [facility] Comment on above: Performed By: #### L [id number] ####[facility] ([facility])[address] [place] [address] Calcium [Mass/Vol] 8.9 mg/dL Normal 8.6-10.3 [facility] Comment on above: Performed By: #### L [id number] ####[facility] ([facility])[address] [place] [address] Chloride [Moles/Vol] 96 mmol/L Low 98-107 [facility] Comment on above: Performed By: #### L [id number] ####[facility] ([facility])[address] [place] [address] CO2 [Moles/Vol] 30 mmol/L Normal -31 [facility] Comment on above: Performed By: #### L [id number] ####[facility] ([facility])[address] [place] [address] Creatinine [Mass/Vol] 0.78 mg/dL Normal 0.70-1.30 [facility] Comment on above: Performed By: #### L [id number] ####[facility] ([facility])[address] [place] [address] GLOMERULAR FILTRATION RATE ML/MIN/1.73 SQ M.PREDICTED 108.6 mL/min/1.73m*2 Normal >60.0 [facility] Comment on above: Result Comment: The [facility]???s estimated glomerular filtration rate (eGFR) will [...] of individuals. Performed By: #### L [id number] ####[facility] ([facility])[address] [place] [address] Glucose [Mass/Vol] 108 mg/dL High 70-100 [facility] Comment on above: Performed By: #### L [id number] ####[facility] ([facility])[address] [place] [address] Potassium [Moles/Vol] 3.9 mmol/L Normal 3.5-5.1 [facility] Comment on above: Performed By: #### L [id number] ####[facility] ([facility])[address] [place] [address] Sodium [Moles/Vol] 133 mmol/L Low 136-145 [facility] Comment on above: Performed By: #### L [id number] ####[facility] ([facility])[address] [place] [address] Urea nitrogen [Mass/Vol] 9 mg/dL Normal 7-25 [facility] Comment on above: Performed By: #### L [id number] ####[facility] ([facility])[address] [place] [address] UREA NITROGEN/CREATININE (MASS RATIO) IN SER/PLAS 11.5 Normal [facility] Comment on above: Performed By: #### L [id number] ####[facility] ([facility])[address] [place] [address] CBCon 06-30-2023 Erythrocyte distribution width (RBC) [Ratio] 15.4 % High 11.5-15.0 [facility] Comment on above: Performed By: #### L [id number] ####[facility] ([facility])[address] [place] [address] ERYTHROCYTE MEAN CORPUSCULAR HEMOGLOBIN CONCENTRATION (G/DL) BY AUTOMATED 33.6 g/dL Normal 32.0-35.0 [facility] Comment on above: Performed By: #### L [id number] ####[facility] ([facility])[address] [place] [address] Hematocrit (Bld) [Volume fraction] 24.4 % Low 39.0-55.0 [facility] Comment on above: Performed By: #### L [id number] ####[facility] ([facility])[address] [place] [address] Hemoglobin (Bld) [Mass/Vol] 8.2 g/dL Low 13.0-17.0 [facility] Comment on above: Performed By: #### L [id number] ####[facility] ([facility] [place] [address] MCH (RBC) [Entitic mass] 28.9 pg Normal 27.0-33.0 [facility] Comment on above: Performed By: #### L [id number] ####[facility] ([facility] [place] [address] MCV (RBC) [Entitic vol] 85.9 fL Normal 82.0-98.0 [facility] Comment on above: Performed By: #### L [id number] ####[facility] ([facility])[address] [place] [address] PLATELETS (10*3/UL) IN BLOOD AUTOMATED COUNT 203 10*3/uL Normal 150-400 [facility] Comment on above: Performed By: #### L [id number] ####[facility] ([facility])[address] [place] [address] RBC (Bld) [#/Vol] 2.84 10*6/uL Low 4.20-5.70 [facility] Comment on above: Performed By: #### L [id number] ####[facility] ([facility])[address] [place] [address] WBC (Bld) [#/Vol] 6.03 10*3/uL Normal 4.00-10.60 [facility] Comment on above: Performed By: #### L [id number] ####[facility] ([facility])[address] [place] [address] CKon 06-30-2023 CREATINE KINASE (U/L) IN SER/PLAS 144.0 U/L Normal 30.0-223.0 [facility] Comment on above: Performed By: #### L [id number] ####[facility] ([facility])[address] [place] [address] MAGNESIUMon 06-30-2023 Magnesium [Mass/Vol] 2.1 mg/dL Normal 1.9-2.7 [facility] Comment on above: Performed By: #### L [id number] ####[facility] ([facility])[address] [place] [address] Magnesium [Mass/Vol] 2.2 mg/dL Normal 1.9-2.7 [facility] Comment on above: Performed By: #### L [id number] ####[facility] ([facility])[address] [place] [address] POCT GLUCOSE METER UNSOLICIT ED RESULTSon 06-30-2023 Glucose [Mass/Vol] 243 mg/dL High 70-105 [facility] Comment on above: Order Comment: Waive d Testing in the ED is performed under the ED CLIA certificate #[id number]. Result Comment: [email or web address] Performed By: #### L [id number] ####[facility] ([facility])[address] [place] [address] Glucose [Mass/Vol] 112 mg/dL High 70-105 [facility] Comment on above: Order Comment: Waive d Testing in the ED is performed under the ED CLIA certificate #[id number]. Result Comment: [email or web address] Performed By: #### L [id number] ####[facility] ([facility])[address] [place] [address] Glucose [Mass/Vol] 124 mg/dL High 70-105 [facility] Comment on above: Order Comment: Waive d Testing in the ED is performed under the ED CLIA certificate #[id number]. Result Comment: [email or web address] Performed By: #### L [id number] ####[facility] ([facility])[address] [place] [address] Glucose [Mass/Vol] 158 mg/dL High 70-105 [facility] Comment on above: Order Comment: Waive d Testing in the ED is performed under the ED CLIA certificate #[id number]. Result Comment: [email or web address] Performed By: #### L [id number] ####[facility] ([facility])[address] [place] [address] POTASSIUMon 06-30-2023 Potassium [Moles/Vol] 4.0 mmol/L Normal 3.5-5.1 [facility] Comment on above: Performed By: #### L [id number] ####[facility] ([facility])[address] [place] [address] PROTIME-INRon 06-30-2023 INR IN PPP BY COAGULATION ASSAY 1.21 High 0.90-1.10 [facility] Comment on above: Result Comment: ACCC [...] CHEST 1995;108:231S-246S. Performed By: #### L [id number] ####[facility] ([facility])[address] [place] [address] PROTHROMBIN TIME (PT) IN PPP BY COAGULATION ASSAY 15.4 Seconds High 12.3-14.8 [facility] Comment on above: Performed By: #### L [id number] ####[facility] ([facility])[address] [place] [address] 30on 06-29-2023 30 Normal [facility] 30 Normal [facility] ANTI-XA (HEPARIN LEVEL)on HEPARIN UNFRACTIONATED (U/ML) IN PPP BY CHROMOGENIC METHOD 0.30 IU/mL Normal 0.3-0.7 [facility] Comment on above: Result Comment: Douglass roxaban and Apixaban will interfere with the anti Xa assay used to monitor UFH and LMWH. Performed By: #### L [id number] ####[facility] ([facility])[address] [place] [address] HEPARIN UNFRACTIONATED (U/ML) IN PPP BY CHROMOGENIC METHOD 0.31 IU/mL Normal 0.3-0.7 [facility] Comment on above: Result Comment: Douglass roxaban and Apixaban will interfere with the anti Xa assay used to monitor UFH and LMWH. Performed By: #### L [id number] ####[facility] ([facility])[address] [place] [address] BASIC METABOLIC PANELon 03-3 0 Anion gap [Moles/Vol] 10 mmol/L Normal 7-20 [facility] Comment on above: Performed By: #### L [id number] ####[facility] ([facility])[address] [place] [address] Calcium [Mass/Vol] 8.3 mg/dL Low 8.6-10.3 [facility] Comment on above: Performed By: #### L [id number] ####[facility] ([facility])[address] [place] [address] Chloride [Moles/Vol] 96 mmol/L Low 98-107 [facility] Comment on above: Performed By: #### L [id number] ####[facility] ([facility])[address] [place] [address] CO2 [Moles/Vol] 29 mmol/L Normal 21-31 [facility] Comment on above: Performed By: #### L [id number] ####[facility] ([facility] [place] [address] Creatinine [Mass/Vol] 0.74 mg/dL Normal 0.70-1.30 [facility] Comment on above: Performed By: #### L [id number] ####[facility] ([facility] [place] [address] GLOMERULAR FILTRATION RATE ML/MIN/1.73 SQ M.PREDICTED 110.4 mL/min/1.73m*2 Normal >60.0 [facility] Comment on above: Result Comment: The [facility]???s estimated glomerular filtration rate (eGFR) will [...] of individuals. Performed By: #### L [id number] ####[facility] ([facility])[address] [place] [address] Glucose [Mass/Vol] 107 mg/dL High 70-100 [facility] Comment on above: Performed By: #### L [id number] ####[facility] ([facility])[address] [place] [address] Potassium [Moles/Vol] 4.3 mmol/L Normal 3.5-5.1 [facility] Comment on above: Performed By: #### L [id number] ####[facility] ([facility])[address] [place] [address] Sodium [Moles/Vol] 131 mmol/L Low 136-145 [facility] Comment on above: Performed By: #### L [id number] ####[facility] ([facility])[address] [place] [address] Urea nitrogen [Mass/Vol] 9 mg/dL Normal 7-25 [facility] Comment on above: Performed By: #### L [id number] ####[facility] ([facility])[address] [place] [address] UREA NITROGEN/CREATININE (MASS RATIO) IN SER/PLAS 12.2 Normal [facility] Comment on above: Performed By: #### L [id number] ####[facility] ([facility])[address] [place] [address] CBCon 06-29-2023 Erythrocyte distribution width (RBC) [Ratio] 15.8 % High 11.5-15.0 [facility] Comment on above: Performed By: #### L [id number] ####[facility] ([facility])[address] [place] [address] ERYTHROCYTE MEAN CORPUSCULAR HEMOGLOBIN CONCENTRATION (G/DL) BY AUTOMATED 33.6 g/dL Normal 32.0-35.0 [facility] Comment on above: Performed By: #### L [id number] ####[facility] ([facility])[address] [place] [address] Hematocrit (Bld) [Volume fraction] 23.5 % Low 39.0-55.0 [facility] Comment on above: Performed By: #### L [id number] ####[facility] ([facility])[address] [place] [address] Hemoglobin (Bld) [Mass/Vol] 7.9 g/dL Low 13.0-17.0 [facility] Comment on above: Performed By: #### L [id number] ####[facility] ([facility])[address] [place] [address] MCH (RBC) [Entitic mass] 29.5 pg Normal 27.0-33.0 [facility] Comment on above: Performed By: #### L [id number] ####[facility] ([facility])[address] [place] [address] MCV (RBC) [Entitic vol] 87.7 fL Normal 82.0-98.0 [facility] Comment on above: Performed By: #### L [id number] ####[facility] ([facility])[address] [place] [address] PLATELETS (10*3/UL) IN BLOOD AUTOMATED COUNT 161 10*3/uL Normal 150-400 [facility] Comment on above: Performed By: #### L [id number] ####[facility] ([facility])[address] [place] [address] RBC (Bld) [#/Vol] 2.68 10*6/uL Low 4.20-5.70 [facility] Comment on above: Performed By: #### L [id number] ####[facility] ([facility])[address] [place] [address] WBC (Bld) [#/Vol] 6.52 10*3/uL Normal 4.00-10.60 [facility] Comment on above: Performed By: #### L [id number] ####[facility] ([facility] [place] [address] MAGNESIUMon 06-29-2023 Magnesium [Mass/Vol] 2.3 mg/dL Normal 1.9-2.7 [facility] Comment on above: Performed By: #### L [id number] ####[facility] ([facility])[address] [place] [address] Magnesium [Mass/Vol] 2.0 mg/dL Normal 1.9-2.7 [facility] Comment on above: Performed By: #### L [id number] ####[facility] ([facility])[address] [place] [address] NURSNOTEon 06-29-2023 NURSNOTE Normal [facility] PHOSPHORUSon 06-29-2023 Magnesium [Mass/Vol] 3.2 mg/dL Normal 2.5-5.0 [facility] Comment on above: Performed By: #### L [id number] ####[facility] ([facility])[address] [place] [address] POCT GLUCOSE METER UNSOLICIT ED RESULTSon 06-29-2023 Glucose [Mass/Vol] 129 mg/dL High 70-105 [facility] Comment on above: Order Comment: Waive d Testing in the ED is performed under the ED CLIA certificate #[id number]. Result Comment: [email or web address] Performed By: #### L [id number] ####[facility] ([facility])[address] [place] [address] Glucose [Mass/Vol] 108 mg/dL High 70-105 [facility] Comment on above: Order Comment: Waive d Testing in the ED is performed under the ED CLIA certificate #[id number]. Result Comment: [email or web address] Performed By: #### L [id number] ####[facility] ([facility])[address] [place] [address] Glucose [Mass/Vol] 142 mg/dL High 70-105 [facility] Comment on above: Order Comment: Waive d Testing in the ED is performed under the ED CLIA certificate #[id number]. Result Comment: [email or web address] Performed By: #### L [id number] ####[facility] ([facility])[address] [place] [address] Glucose [Mass/Vol] 136 mg/dL High 70-105 [facility] Comment on above: Order Comment: Waive d Testing in the ED is performed under the ED CLIA certificate #[id number]. Result Comment: [email or web address] Performed By: #### L [id number] ####[facility] ([facility])[address] [place] [address] POTASSIUMon 06-29-2023 Potassium [Moles/Vol] 4.3 mmol/L Normal 3.5-5.1 [facility] Comment on above: Performed By: #### L [id number] ####[facility] ([facility])[address] [place] [address] PROTIME-INRon 06-29-2023 INR IN PPP BY COAGULATION ASSAY 1.13 High 0.90-1.10 [facility] Comment on above: Result Comment: ACCC [...] CHEST 1995;108:231S-246S. Performed By: #### L [id number] ####[facility] ([facility])[address] [place] [address] PROTHROMBIN TIME (PT) IN PPP BY COAGULATION ASSAY 14.5 Seconds Normal 12.3-14.8 [facility] Comment on above: Performed By: #### L [id number] ####[facility] ([facility])[address] [place] [address] 30on 06-28-2023 30 Normal [facility] 30 Normal [facility] ANTI-XA (HEPARIN LEVEL)on HEPARIN UNFRACTIONATED (U/ML) IN PPP BY CHROMOGENIC METHOD 0.25 IU/mL Low 0.3-0.7 [facility] Comment on above: Result Comment: Sofy roxaban and Apixaban will interfere with the anti Xa assay used to monitor UFH and LMWH. Performed By: #### L [id number] ####[facility] ([facility])[address] [place] [address] HEPARIN UNFRACTIONATED (U/ML) IN PPP BY CHROMOGENIC METHOD 0.16 IU/mL Invalid Interpretation Code 0.3-0.7 [facility] Comment on above: Result Comment: Douglass roxaban and Apixaban will interfere with the anti Xa assay used to monitor UFH and LMWH. Performed By: #### L [id number] ####[facility] ([facility])[address] [place] [address] HEPARIN UNFRACTIONATED (U/ML) IN PPP BY CHROMOGENIC METHOD <0.10 Invalid Interpretation Code 0.3-0.7 [facility] Comment on above: Order Comment: Check anti-Xa level every 6 hours while on heparin infusion, or per protocol. Result Comment: Sofy roxaban and Apixaban will interfere with the anti Xa assay used to monitor UFH and LMWH. Performed By: #### L [id number] ####[facility] ([facility])[address] [place] [address] APTTon 06-28-2023 ACTIVATED PARTIAL THROMBOPLASTIN TIME IN PPP BY COAGULATION ASSAY 31.5 Seconds Normal 25.0-35.0 [facility] Comment on above: Order Comment: Basel ine aPTT before initiating heparin infusion. Result Comment: Clin ical significance of the APTT is questionable in the presence of heparin. Performed By: #### L [id number] ####[facility] ([facility] [place] [address] BASIC METABOLIC PANELon - Anion gap [Moles/Vol] 14 mmol/L Normal 7-20 [facility] Comment on above: Performed By: #### L [id number] ####[facility] ([facility])[address] [place] [address] Calcium [Mass/Vol] 8.1 mg/dL Low 8.6-10.3 [facility] Comment on above: Performed By: #### L [id number] ####[facility] ([facility])[address] [place] [address] Chloride [Moles/Vol] 95 mmol/L Low 98-107 [facility] Comment on above: Performed By: #### L [id number] ####[facility] ([facility])[address] [place] [address] CO2 [Moles/Vol] 25 mmol/L Normal 21-31 [facility] Comment on above: Performed By: #### L [id number] ####[facility] ([facility] [place] [address] Creatinine [Mass/Vol] 0.69 mg/dL Low 0.70-1.30 [facility] Comment on above: Performed By: #### L [id number] ####[facility] ([facility])[address] [place] [address] GLOMERULAR FILTRATION RATE ML/MIN/1.73 SQ M.PREDICTED 112.7 mL/min/1.73m*2 Normal >60.0 [facility] Comment on above: Result Comment: The [facility]???s estimated glomerular filtration rate (eGFR) will [...] of individuals. Performed By: #### L [id number] ####[facility] ([facility])[address] [place] [address] Glucose [Mass/Vol] 103 mg/dL High 70-100 [facility] Comment on above: Performed By: #### L [id number] ####[facility] ([facility])[address] [place] [address] Potassium [Moles/Vol] 3.9 mmol/L Normal 3.5-5.1 [facility] Comment on above: Performed By: #### L [id number] ####[facility] ([facility])[address] [place] [address] Sodium [Moles/Vol] 130 mmol/L Low 136-145 [facility] Comment on above: Performed By: #### L [id number] ####[facility] ([facility])[address] [place] [address] Urea nitrogen [Mass/Vol] 10 mg/dL Normal 7-25 [facility] Comment on above: Performed By: #### L [id number] ####[facility] ([facility])[address] [place] [address] UREA NITROGEN/CREATININE (MASS RATIO) IN SER/PLAS 14.5 Normal [facility] Comment on above: Performed By: #### L [id number] ####[facility] ([facility])[address] [place] [address] Anion gap [Moles/Vol] 8 mmol/L Normal 7-20 [facility] Comment on above: Performed By: #### L [id number] ####[facility] ([facility])[address] [place] [address] Calcium [Mass/Vol] 8.1 mg/dL Low 8.6-10.3 [facility] Comment on above: Performed By: #### L [id number] ####[facility] ([facility])[address] [place] [address] Chloride [Moles/Vol] 98 mmol/L Normal 98-107 [facility] Comment on above: Performed By: #### L [id number] ####[facility] ([facility])[address] [place] [address] CO2 [Moles/Vol] 29 mmol/L Normal 21-31 [facility] Comment on above: Performed By: #### L [id number] ####[facility] [place] [address] Creatinine [Mass/Vol] 0.73 mg/dL Normal 0.70-1.30 [facility] Comment on above: Performed By: #### L [id number] ####[facility] ([facility])[address] [place] [address] GLOMERULAR FILTRATION RATE ML/MIN/1.73 SQ M.PREDICTED 110.8 mL/min/1.73m*2 Normal >60.0 [facility] Comment on above: Result Comment: The [facility]???s estimated glomerular filtration rate (eGFR) will [...] of individuals. Performed By: #### L [id number] ####[facility] ([facility])[address] [place] [address] Glucose [Mass/Vol] 118 mg/dL High 70-100 [facility] Comment on above: Performed By: #### L [id number] ####[facility] ([facility])[address] [place] [address] Potassium [Moles/Vol] 3.8 mmol/L Normal 3.5-5.1 [facility] Comment on above: Performed By: #### L [id number] ####[facility] (BEAKER)[address] [place] [address] Sodium [Moles/Vol] 131 mmol/L Low 136-145 [facility] Comment on above: Performed By: #### L [id number] ####[facility] (BEAKER)[address] [place] [address] Urea nitrogen [Mass/Vol] 10 mg/dL Normal 7-25 [facility] Comment on above: Performed By: #### L [id number] ####[facility] (BEAKER)[address] [place] [address] UREA NITROGEN/CREATININE (MASS RATIO) IN SER/PLAS 13.7 Normal [facility] Comment on above: Performed By: #### L [id number] ####[facility] [place] [address] CBCon 06-28-2023 Erythrocyte distribution width (RBC) [Ratio] 15.6 % High 11.5-15.0 [facility] Comment on above: Performed By: #### L [id number] ####[facility] (BEAKER)[address] [place] [address] ERYTHROCYTE MEAN CORPUSCULAR HEMOGLOBIN CONCENTRATION (G/DL) BY AUTOMATED 33.8 g/dL Normal 32.0-35.0 [facility] Comment on above: Performed By: #### L [id number] ####[facility] (BEAKER)[address] [place] [address] Hematocrit (Bld) [Volume fraction] 20.4 % Low 39.0-55.0 [facility] Comment on above: Performed By: #### L [id number] ####[facility] (BEAKER)[address] [place] [address] Hemoglobin (Bld) [Mass/Vol] 6.9 g/dL Low 13.0-17.0 [facility] Comment on above: Performed By: #### L [id number] ####[facility] (BEAKER)[address] [place] [address] IMMATURE PLATELET FRACTION % 5.6 % Normal 0.8-6.3 [facility] Comment on above: Performed By: #### L [id number] ####[facility] ([facility])[address] [place] [address] MCH (RBC) [Entitic mass] 29.5 pg Normal 27.0-33.0 [facility] Comment on above: Performed By: #### L [id number] ####[facility] ([facility])[address] [place] [address] MCV (RBC) [Entitic vol] 87.2 fL Normal 82.0-98.0 [facility] Comment on above: Performed By: #### L [id number] ####[facility] ([facility])[address] [place] [address] PLATELETS (10*3/UL) IN BLOOD AUTOMATED COUNT 127 10*3/uL Low 150-400 [facility] Comment on above: Performed By: #### L [id number] ####[facility] ([facility])[address] [place] [address] RBC (Bld) [#/Vol] 2.34 10*6/uL Low 4.20-5.70 [facility] Comment on above: Performed By: #### L [id number] ####[facility] ([facility])[address] [place] [address] WBC (Bld) [#/Vol] 6.57 10*3/uL Normal 4.00-10.60 [facility] Comment on above: Performed By: #### L [id number] ####[facility] ([facility])[address] [place] [address] CKon 06-28-2023 CREATINE KINASE (U/L) IN SER/PLAS 560.0 U/L High 30.0-223.0 [facility] Comment on above: Performed By: #### L [id number] ####[facility] ([facility])[address] [place] [address] CONSULTon 06-28-2023 CONSULT Normal [facility] MAGNESIUMon 06-28-2023 Magnesium [Mass/Vol] 1.9 mg/dL Normal 1.9-2.7 [facility] Comment on above: Performed By: #### L [id number] ####[facility] ([facility])[address] [place] [address] PLATELET COUNTon 06-28-2023 IMMATURE PLATELET FRACTION % 6.1 % Normal 0.8-6.3 [facility] Comment on above: Performed By: #### L [id number] ####[facility] ([facility])[address] [place] [address] PLATELETS (10*3/UL) IN BLOOD AUTOMATED COUNT 126 10*3/uL Low 150-400 [facility] Comment on above: Performed By: #### L [id number] ####[facility] ([facility])[address] [place] [address] POCT GLUCOSE METER UNSOLICIT ED RESULTSon 06-28-2023 Glucose [Mass/Vol] 95 mg/dL Normal 70-105 [facility] Comment on above: Order Comment: Waive d Testing in the ED is performed under the ED CLIA certificate #[id number]. Result Comment: [email or web address] Performed By: #### L [id number] ####[facility] ([facility])[address] [place] [address] Glucose [Mass/Vol] 118 mg/dL High 70-105 [facility] Comment on above: Order Comment: Waive d Testing in the ED is performed under the ED CLIA certificate #[id number]. Result Comment: [email or web address] gabo Performed By: #### L [id number] ####[facility] ([facility])[address] [place] [address] Glucose [Mass/Vol] 111 mg/dL High 70-105 [facility] Comment on above: Order Comment: Waive d Testing in the ED is performed under the ED CLIA certificate #[id number]. Result Comment: cgil [email or web address] Performed By: #### L [id number] ####[facility] (BEAKER)[address] [place] [address] Glucose [Mass/Vol] 160 mg/dL High 70-105 [facility] Comment on above: Order Comment: Waive d Testing in the ED is performed under the ED CLIA certificate #[id number]. Result Comment: lui contreras Performed By: #### L [id number] ####[facility] (BEBubbl)[address] [place] [address] PROTIME-INRon 06-28-2023 INR IN PPP BY COAGULATION ASSAY 1.16 High 0.90-1.10 [facility] Comment on above: Result Comment: ACCC [...] CHEST 1995;108:231S-246S. Performed By: #### L [id number] ####[facility] (BEBubbl)[address] [place] [address] PROTHROMBIN TIME (PT) IN PPP BY COAGULATION ASSAY 14.8 Seconds Normal 12.3-14.8 [facility] Comment on above: Performed By: #### L [id number] ####[facility] (BEBubbl)[address] [place] [address] 30on 06-27-2023 30 Normal [facility] 30 Normal [facility] APTTon 06-27-2023 ACTIVATED PARTIAL THROMBOPLASTIN TIME IN PPP BY COAGULATION ASSAY 35.5 Seconds High 25.0-35.0 [facility] Comment on above: Result Comment: Clin ical significance of the APTT is questionable in the presence of heparin. Performed By: #### L [id number] ####[facility] ([facility])[address] [place] [address] BASIC METABOLIC PANELon 05-31 Anion gap [Moles/Vol] 9 mmol/L Normal 7-20 [facility] Comment on above: Performed By: #### L [id number] ####[facility] ([facility])[address] [place] [address] Calcium [Mass/Vol] 8.3 mg/dL Low 8.6-10.3 [facility] Comment on above: Performed By: #### L [id number] ####[facility] ([facility])[address] [place] [address] Chloride [Moles/Vol] 104 mmol/L Normal 98-107 [facility] Comment on above: Performed By: #### L [id number] ####[facility] ([facility])[address] [place] [address] CO2 [Moles/Vol] 26 mmol/L Normal 21-31 [facility] Comment on above: Performed By: #### L [id number] ####[facility] ([facility])[address] [place] [address] Creatinine [Mass/Vol] 0.78 mg/dL Normal 0.70-1.30 [facility] Comment on above: Performed By: #### L [id number] ####[facility] ([facility])[address] [place] [address] GLOMERULAR FILTRATION RATE ML/MIN/1.73 SQ M.PREDICTED 108.6 mL/min/1.73m*2 Normal >60.0 [facility] Comment on above: Result Comment: The [facility]???s estimated glomerular filtration rate (eGFR) will [...] of individuals. Performed By: #### L [id number] ####[facility] ([facility])[address] [place] [address] Glucose [Mass/Vol] 117 mg/dL High 70-100 [facility] Comment on above: Performed By: #### L [id number] ####[facility] ([facility])[address] [place] [address] Potassium [Moles/Vol] 4.9 mmol/L Normal 3.5-5.1 [facility] Comment on above: Performed By: #### L [id number] ####[facility] ([facility])[address] [place] [address] Sodium [Moles/Vol] 134 mmol/L Low 136-145 [facility] Comment on above: Performed By: #### L [id number] ####[facility] ([facility])[address] [place] [address] Urea nitrogen [Mass/Vol] 10 mg/dL Normal 7-25 [facility] Comment on above: Performed By: #### L [id number] ####[facility] ([facility])[address] [place] [address] UREA NITROGEN/CREATININE (MASS RATIO) IN SER/PLAS 12.8 Normal [facility] Comment on above: Performed By: #### L [id number] ####[facility] ([facility])[address] [place] [address] CBCon 06-27-2023 Erythrocyte distribution width (RBC) [Ratio] 15.9 % High 11.5-15.0 [facility] Comment on above: Performed By: #### L [id number] ####[facility] (BEAKER)[address] [place] [address] ERYTHROCYTE MEAN CORPUSCULAR HEMOGLOBIN CONCENTRATION (G/DL) BY AUTOMATED 34.4 g/dL Normal 32.0-35.0 [facility] Comment on above: Performed By: #### L [id number] ####[facility] ([facility] [place] [address] Hematocrit (Bld) [Volume fraction] 21.8 % Low 39.0-55.0 [facility] Comment on above: Performed By: #### L [id number] ####[facility] ([facility])[address] [place] [address] Hemoglobin (Bld) [Mass/Vol] 7.5 g/dL Low 13.0-17.0 [facility] Comment on above: Performed By: #### L [id number] ####[facility] ([facility])[address] [place] [address] IMMATURE PLATELET FRACTION % 4.8 % Normal 0.8-6.3 [facility] Comment on above: Performed By: #### L [id number] ####[facility] ([facility])[address] [place] [address] MCH (RBC) [Entitic mass] 30.2 pg Normal 27.0-33.0 [facility] Comment on above: Performed By: #### L [id number] ####[facility] ([facility] [place] [address] MCV (RBC) [Entitic vol] 87.9 fL Normal 82.0-98.0 [facility] Comment on above: Performed By: #### L [id number] ####[facility] ([facility] [place] [address] PLATELETS (10*3/UL) IN BLOOD AUTOMATED COUNT 116 10*3/uL Low 150-400 [facility] Comment on above: Performed By: #### L [id number] ####[facility] ([facility] [place] [address] RBC (Bld) [#/Vol] 2.48 10*6/uL Low 4.20-5.70 [facility] Comment on above: Performed By: #### L [id number] ####[facility] ([facility])[address] [place] [address] WBC (Bld) [#/Vol] 5.34 10*3/uL Normal 4.00-10.60 [facility] Comment on above: Performed By: #### L [id number] ####[facility] ([facility])[address] [place] [address] CONSULTon 06-27-2023 CONSULT Normal [facility] MAGNESIUMon 06-27-2023 Magnesium [Mass/Vol] 2.0 mg/dL Normal 1.9-2.7 [facility] Comment on above: Performed By: #### L [id number] ####[facility] ([facility])[address] [place] [address] PHOSPHORUSon 06-27-2023 Magnesium [Mass/Vol] 4.2 mg/dL Normal 2.5-5.0 [facility] Comment on above: Performed By: #### L [id number] ####[facility] ([facility])[address] [place] [address] POCT GLUCOSE METER UNSOLICIT ED RESULTSon 06-27-2023 Glucose [Mass/Vol] 154 mg/dL High 70-105 [facility] Comment on above: Order Comment: Waive d Testing in the ED is performed under the ED CLIA certificate #[id number]. Result Comment: mer jha Performed By: #### L [id number] ####[facility] ([facility])[address] [place] [address] Glucose [Mass/Vol] 114 mg/dL High 70-105 [facility] Comment on above: Order Comment: Waive d Testing in the ED is performed under the ED CLIA certificate #[id number]. Result Comment: mer jha Performed By: #### L [id number] ####[facility] ([facility])[address] [place] [address] Glucose [Mass/Vol] 108 mg/dL High 70-105 [facility] Comment on above: Order Comment: Waive d Testing in the ED is performed under the ED CLIA certificate #[id number]. Result Comment: [email or web address] [email or web address] Performed By: #### L [id number] ####[facility] ([facility])[address] [place] [address] Glucose [Mass/Vol] 112 mg/dL High 70-105 [facility] Comment on above: Order Comment: Waive d Testing in the ED is performed under the ED CLIA certificate #[id number]. Result Comment: [email or web address] gabo Performed By: #### L [id number] ####[facility] ([facility])[address] [place] [address] Glucose [Mass/Vol] 111 mg/dL High 70-105 [facility] Comment on above: Order Comment: Waive d Testing in the ED is performed under the ED CLIA certificate #[id number]. Result Comment: mmcc gabo Performed By: #### L [id number] ####[facility] ([facility])[address] [place] [address] Glucose [Mass/Vol] 120 mg/dL High 70-105 [facility] Comment on above: Order Comment: Waive d Testing in the ED is performed under the ED CLIA certificate #[id number]. Result Comment: mmcc gabo Performed By: #### L [id number] ####[facility] ([facility])[address] [place] [address] Glucose [Mass/Vol] 128 mg/dL High 70-105 [facility] Comment on above: Order Comment: Waive d Testing in the ED is performed under the ED CLIA certificate #[id number]. Result Comment: mmcc gabo Performed By: #### L [id number] ####[facility] ([facility])[address] [place] [address] PROTIME-INRon 06-27-2023 INR IN PPP BY COAGULATION ASSAY 1.30 High 0.90-1.10 [facility] Comment on above: Order Comment: On esau rival to SICU Result Comment: ACC P RECOMMENDED INR FOR WARFARIN THERAPY CONDITION INRPROPHYLAXIS OF VENOUS THROMBOSIS 2-3(HIGH-RISK SURGERY)TREATMENT OF VENOUS THROMBOSIS 2-3TREATMENT OF PULMONARY EMBOLISM 2-3PREVENTION OF SYSTEMIC EMBOLISM: 2-3 ACUTE MYOCARDIAL INFARCTION TISSUE HEART VALVES VALVULAR HEART DISEASE ATRIAL FIBRILLATION RECURRENT SYSTEMIC EMBOLISMMECHANICAL HEART VALVE 2.5-3.5 FROM: ORAL ANTICOAGULANTS. MECHANISM OF ACTION, CLINICAL EFFECTIVENESS, AND OPTIMAL THERAPEUTIC RANGE. CHEST 1995;108:231S-246S. Performed By: #### L [id number] ####[facility])[address] [place] [address] PROTHROMBIN TIME (PT) IN PPP BY COAGULATION ASSAY 16.3 Seconds High 12.3-14.8 [facility] Comment on above: Order Comment: On ar rival to SICU Performed By: #### L [id number] ####[facility] ([facility])[address] [place] [address] 30on 06-26-2023 30 Normal [facility] 30 Normal [facility] 30 Normal [facility] ANESon 06-26-2023 ANES Normal [facility] APTTon 06-26-2023 ACTIVATED PARTIAL THROMBOPLASTIN TIME IN PPP BY COAGULATION ASSAY 30.1 Seconds Normal 25.0-35.0 [facility] Comment on above: Result Comment: Clin ical significance of the APTT is questionable in the presence of heparin. Performed By: #### L [id number] ####[facility] (AKER)[address] [place] [address] ACTIVATED PARTIAL THROMBOPLASTIN TIME IN PPP BY COAGULATION ASSAY 29.1 Seconds Normal 25.0-35.0 [facility] Comment on above: Order Comment: Pre-o p diagnosis:Aortic valve disorder [I35.9] Result Comment: Clin ical significance of the APTT is questionable in the presence of heparin. Performed By: #### L [id number] ####[facility] (AKER)[address] [place] [address] ACTIVATED PARTIAL THROMBOPLASTIN TIME IN PPP BY COAGULATION ASSAY 31.8 Seconds Normal 25.0-35.0 [facility] Comment on above: Result Comment: Clin ical significance of the APTT is questionable in the presence of heparin. Performed By: #### L [id number] ####[facility] ([facility])[address] [place] [address] ARTERIAL BLOOD GAS WITH IONI Upri[employer] LabsD CALCIUMon 06-26-2023 Base excess Calc (Bld) [Moles/Vol] -3.3000 mmol/L Low -2.0-3.0 [facility] Comment on above: Performed By: #### L [id number] ####[facility] [id number] [place] [address] [facility] CALCIUM IONIZED (MMOL/L) IN BLOOD 1.09 mmol/L Low 1.15-1.33 [facility] Comment on above: Performed By: #### L [id number] ####[facility] [id number] [place] [address] [place] CO2 (Bld) [Partial pressure] 35 mm[Hg] Normal 35-48 [facility] Comment on above: Performed By: #### L [id number] ####[facility] [id number] [place] [address] [place] FIO2 40 % Normal [facility] Comment on above: Performed By: #### L [id number] ####[facility] [id number] [place] [address] [place] HCO3 (Bld) [Moles/Vol] 21.2 mmol/L Normal 21.0-28.0 [facility] Comment on above: Performed By: #### L [id number] ####[facility] [id number] Oxygen (Bld) [Partial pressure] 118 mm[Hg] High 83-100 [facility] Comment on above: Performed By: #### L [id number] ####[facility] [id number] [place], [place] [address] OXYGEN SATURATION (%) IN ARTERIAL BLOOD 98.8 % High 94.0-98.0 [facility] Comment on above: Performed By: #### L [id number] ####[facility] [id number] [place], [place] [address] PEEP 6 cmH2O Normal [facility] Comment on above: Performed By: #### L [id number] ####[facility] [id number] [address] pH (Bld) 7.39 [pH] Normal 7.35-7.45 [facility] Comment on above: Performed By: #### L [id number] ####[facility] [id number] [place], [place] [address] PRESSURE SUPPORT 12 Normal [facility] Comment on above: Performed By: #### L [id number] ####[facility] [id number] [place], [place] [address] SOURCE OF OXYGEN Bi-PAP Normal [facility] Comment on above: Performed By: #### L [id number] ####[facility] [id number] [place] [address] [facility] Base excess Calc (Bld) [Moles/Vol] -5.8000 mmol/L Low -2.0-3.0 [facility] Comment on above: Performed By: #### L [id number] ####[facility] [id number] [place] [address] [facility] CALCIUM IONIZED (MMOL/L) IN BLOOD 1.19 mmol/L Normal 1.15-1.33 [facility] Comment on above: Performed By: #### L [id number] ####[facility] [id number] [place] [address] [place] CO2 (Bld) [Partial pressure] 44 mm[Hg] Normal 35-48 [facility] Comment on above: Performed By: #### L [id number] ####[facility] [id number] [place] [address] [place] FIO2 40 % Normal [facility] Comment on above: Performed By: #### L [id number] ####[facility] [id number] [place] [address] [place] HCO3 (Bld) [Moles/Vol] 20.7 mmol/L Low 21.0-28.0 [facility] Comment on above: Performed By: #### L [id number] ####[facility] [id number] [place] [address] [place] Oxygen (Bld) [Partial pressure] 102 mm[Hg] High 83-100 [facility] Comment on above: Performed By: #### L [id number] ####[facility] [id number] [place] [address] [place] OXYGEN SATURATION (%) IN ARTERIAL BLOOD 99.5 % High 94.0-98.0 [facility] Comment on above: Performed By: #### L [id number] ####[facility] [id number] [place] [address] [place] PEEP 6 cmH2O Normal [facility] Comment on above: Performed By: #### L [id number] ####[facility] [id number] [place] [address] [place] pH (Bld) 7.28 [pH] Low 7.35-7.45 [facility] Comment on above: Performed By: #### L [id number] ####[facility] [id number] [place] [address] [place] PRESSURE SUPPORT 12 Normal [facility] Comment on above: Performed By: #### L [id number] ####[facility] [id number] [place] [address] [facility] SOURCE OF OXYGEN Bi-PAP Normal [facility] ty [facility] Comment on above: Performed By: #### L [id number] ####[facility] [id number] [place] [address] [facility] BASIC METABOLIC PANELon 03-2 Anion gap [Moles/Vol] 10 mmol/L Normal 7- [facility] Comment on above: Performed By: #### L [id number] ####[facility] (BEAKER)[address] [place] [address] Calcium [Mass/Vol] 8.1 mg/dL Low 8.6-10.3 [facility] Comment on above: Performed By: #### L [id number] ####[facility] (BEAKER)[address] [place] [address] Chloride [Moles/Vol] 108 mmol/L High 98-107 [facility] Comment on above: Performed By: #### L [id number] ####[facility] (BEAKER)[address] [place] [address] CO2 [Moles/Vol] 24 mmol/L Normal 21- [facility] Comment on above: Performed By: #### L [id number] ####[facility] (BEAKER)[address] [place] [address] Creatinine [Mass/Vol] 0.72 mg/dL Normal 0.70-1.30 [facility] Comment on above: Performed By: #### L [id number] ####[facility] (BEAKER)[address] [place] [address] GLOMERULAR FILTRATION RATE ML/MIN/1.73 SQ M.PREDICTED 111.3 mL/min/1.73m*2 Normal >60.0 [facility] Comment on above: Result Comment: The [facility]???s estimated glomerular filtration rate (eGFR) will [...] of individuals. Performed By: #### L [id number] ####[facility] ([facility])[address] [place] [address] Glucose [Mass/Vol] 151 mg/dL High 70-100 [facility] Comment on above: Performed By: #### L [id number] ####[facility] ([facility])[address] [place] [address] Potassium [Moles/Vol] 4.1 mmol/L Normal 3.5-5.1 [facility] Comment on above: Performed By: #### L [id number] ####[facility] ([facility])[address] [place] [address] Sodium [Moles/Vol] 138 mmol/L Normal 136-145 [facility] Comment on above: Performed By: #### L [id number] ####[facility] ([facility])[address] [place] [address] Urea nitrogen [Mass/Vol] 11 mg/dL Normal 7-25 [facility] Comment on above: Performed By: #### L [id number] ####[facility] [place] [address] UREA NITROGEN/CREATININE (MASS RATIO) IN SER/PLAS 15.3 Normal [facility] Comment on above: Performed By: #### L [id number] ####[facility] ([facility])[address] [place] [address] Anion gap [Moles/Vol] 14 mmol/L Normal 7-20 [facility] Comment on above: Order Comment: Pre-o p diagnosis:Aortic valve disorder [I35.9] Performed By: #### L [id number] ####[facility] ([facility] [place] [address] Calcium [Mass/Vol] 7.9 mg/dL Low 8.6-10.3 [facility] Comment on above: Order Comment: Pre-o p diagnosis:Aortic valve disorder [I35.9] Performed By: #### L [id number] ####[facility] (BEAKER)[address] [place] [address] Chloride [Moles/Vol] 107 mmol/L Normal 98-107 [facility] Comment on above: Order Comment: Pre-o p diagnosis:Aortic valve disorder [I35.9] Performed By: #### L [id number] ####[facility] ([facility])[address] [place] [address] CO2 [Moles/Vol] 21 mmol/L Normal 21-31 [facility] Comment on above: Order Comment: Pre-o p diagnosis:Aortic valve disorder [I35.9] Performed By: #### L [id number] ####[facility] ([facility])[address] [place] [address] Creatinine [Mass/Vol] 0.76 mg/dL Normal 0.70-1.30 [facility] Comment on above: Order Comment: Pre-o p diagnosis:Aortic valve disorder [I35.9] Performed By: #### L [id number] ####[facility] ([facility])[address] [place] [address] GLOMERULAR FILTRATION RATE ML/MIN/1.73 SQ M.PREDICTED 109.5 mL/min/1.73m*2 Normal >60.0 [facility] Comment on above: Order Comment: Pre-o p diagnosis:Aortic valve disorder [I35.9] Result Comment: The [facility]???s estimated glomerular filtration rate (eGFR) will [...] of individuals. Performed By: #### L [id number] ####[facility] ([facility])[address] [place] [address] Glucose [Mass/Vol] 194 mg/dL High 70-100 [facility] Comment on above: Order Comment: Pre-o p diagnosis:Aortic valve disorder [I35.9] Performed By: #### L [id number] ####[facility] ([facility])[address] [place] [address] Potassium [Moles/Vol] 3.9 mmol/L Normal 3.5-5.1 [facility] Comment on above: Order Comment: Pre-o p diagnosis:Aortic valve disorder [I35.9] Performed By: #### L [id number] ####[facility] ([facility])[address] [place] [address] Sodium [Moles/Vol] 138 mmol/L Normal 136-145 [facility] Comment on above: Order Comment: Pre-o p diagnosis:Aortic valve disorder [I35.9] Performed By: #### L [id number] ####[facility] ([facility])[address] [place] [address] Urea nitrogen [Mass/Vol] 11 mg/dL Normal 7-25 [facility] Comment on above: Order Comment: Pre-o p diagnosis:Aortic valve disorder [I35.9] Performed By: #### L [id number] ####[facility] ([facility])[address] [place] [address] UREA NITROGEN/CREATININE (MASS RATIO) IN SER/PLAS 14.5 Normal [facility] Comment on above: Order Comment: Pre-o p diagnosis:Aortic valve disorder [I35.9] Performed By: #### L [id number] ####[facility] ([facility])[address] [place] [address] CBCon 06-26-2023 Erythrocyte distribution width (RBC) [Ratio] 15.5 % High 11.5-15.0 [facility] Comment on above: Performed By: #### L [id number] ####[facility] ([facility])[address] [place] [address] ERYTHROCYTE MEAN CORPUSCULAR HEMOGLOBIN CONCENTRATION (G/DL) BY AUTOMATED 34.0 g/dL Normal 32.0-35.0 [facility] Comment on above: Performed By: #### L [id number] ####[facility] ([facility]AKER)[address] [place] [address] Hematocrit (Bld) [Volume fraction] 29.4 % Low 39.0-55.0 [facility] Comment on above: Performed By: #### L [id number] ####[facility] [place] [address] Hemoglobin (Bld) [Mass/Vol] 10.0 g/dL Low 13.0-17.0 [facility] Comment on above: Performed By: #### L [id number] ####[facility] ([facility]ER)[address] [place] [address] IMMATURE PLATELET FRACTION % 3.8 % Normal 0.8-6.3 [facility] Comment on above: Performed By: #### L [id number] ####[facility] ([facility]AKER)[address] [place] [address] MCH (RBC) [Entitic mass] 29.6 pg Normal 27.0-33.0 [facility] Comment on above: Performed By: #### L [id number] ####[facility] ([facility]AKER)[address] [place] [address] MCV (RBC) [Entitic vol] 87.0 fL Normal 82.0-98.0 [facility] Comment on above: Performed By: #### L [id number] ####[facility] ([facility]ER)[address] [place] [address] PLATELETS (10*3/UL) IN BLOOD AUTOMATED COUNT 108 10*3/uL Low 150-400 [facility] Comment on above: Performed By: #### L [id number] ####[facility] ([facility]ER)[address] [place] [address] RBC (Bld) [#/Vol] 3.38 10*6/uL Low 4.20-5.70 [facility] Comment on above: Performed By: #### L [id number] ####[facility] ([facility])[address] [place] [address] WBC (Bld) [#/Vol] 6.87 10*3/uL Normal 4.00-10.60 [facility] Comment on above: Performed By: #### L [id number] ####[facility] ([facility])[address] [place] [address] Erythrocyte distribution width (RBC) [Ratio] 15.3 % High 11.5-15.0 [facility] Comment on above: Order Comment: Pre-o p diagnosis:Aortic valve disorder [I35.9] Performed By: #### L [id number] ####[facility] ([facility])[address] [place] [address] ERYTHROCYTE MEAN CORPUSCULAR HEMOGLOBIN CONCENTRATION (G/DL) BY AUTOMATED 34.5 g/dL Normal 32.0-35.0 [facility] Comment on above: Order Comment: Pre-o p diagnosis:Aortic valve disorder [I35.9] Performed By: #### L [id number] ####[facility] ([facility])[address] [place] [address] Hematocrit (Bld) [Volume fraction] 29.3 % Low 39.0-55.0 [facility] Comment on above: Order Comment: Pre-o p diagnosis:Aortic valve disorder [I35.9] Performed By: #### L [id number] ####[facility] ([facility])[address] [place] [address] Hemoglobin (Bld) [Mass/Vol] 10.1 g/dL Low 13.0-17.0 [facility] Comment on above: Order Comment: Pre-o p diagnosis:Aortic valve disorder [I35.9] Performed By: #### L [id number] ####[facility] ([facility])[address] [place] [address] IMMATURE PLATELET FRACTION % 4.1 % Normal 0.8-6.3 [facility] Comment on above: Order Comment: Pre-o p diagnosis:Aortic valve disorder [I35.9] Performed By: #### L [id number] ####[facility] ([facility])[address] [place] [address] MCH (RBC) [Entitic mass] 29.9 pg Normal 27.0-33.0 [facility] Comment on above: Order Comment: Pre-o p diagnosis:Aortic valve disorder [I35.9] Performed By: #### L [id number] ####[facility] ([facility])[address] [place] [address] MCV (RBC) [Entitic vol] 86.7 fL Normal 82.0-98.0 [facility] Comment on above: Order Comment: Pre-o p diagnosis:Aortic valve disorder [I35.9] Performed By: #### L [id number] ####[facility] ([facility])[address] [place] [address] PLATELETS (10*3/UL) IN BLOOD AUTOMATED COUNT 135 10*3/uL Low 150-400 [facility] Comment on above: Order Comment: Pre-o p diagnosis:Aortic valve disorder [I35.9] Performed By: #### L [id number] ####[facility] ([facility])[address] [place] [address] RBC (Bld) [#/Vol] 3.38 10*6/uL Low 4.20-5.70 [facility] Comment on above: Order Comment: Pre-o p diagnosis:Aortic valve disorder [I35.9] Performed By: #### L [id number] ####[facility] ([facility])[address] [place] [address] WBC (Bld) [#/Vol] 9.24 10*3/uL Normal 4.00-10.60 [facility] Comment on above: Order Comment: Pre-o p diagnosis:Aortic valve disorder [I35.9] Performed By: #### L [id number] ####[facility] ([facility]ER)[address] [place] [address] CBC WITH AUTO DIFFERENTIALon 06-26-2023 Basophils (Bld) [#/Vol] 0.04 10*3/uL Normal 0.00-0.20 [facility] Comment on above: Performed By: #### L [id number] ####[facility] ([facility]ER)[address] [place] [address] Basophils/100 WBC (Bld) 0.8 % Normal 0.0-1.0 [facility] Comment on above: Performed By: #### L [id number] ####[facility] (AKER)[address] [place] [address] Eosinophils (Bld) [#/Vol] 0.28 10*3/uL Normal 0.00-0.50 [facility] Comment on above: Performed By: #### L [id number] ####[facility] (AKER)[address] [place] [address] Eosinophils/100 WBC (Bld) 5.9 % Normal 0.0-6.0 [facility] Comment on above: Performed By: #### L [id number] ####[facility] (AKER)[address] [place] [address] Erythrocyte distribution width (RBC) [Ratio] 15.9 % High 11.5-15.0 [facility] Comment on above: Performed By: #### L [id number] ####[facility] ([facility]ER)[address] [place] [address] ERYTHROCYTE MEAN CORPUSCULAR HEMOGLOBIN CONCENTRATION (G/DL) BY AUTOMATED 33.7 g/dL Normal 32.0-35.0 [facility] Comment on above: Performed By: #### L [id number] ####[facility] ([facility]ER)[address] [place] [address] Hematocrit (Bld) [Volume fraction] 32.6 % Low 39.0-55.0 [facility] Comment on above: Performed By: #### L [id number] ####[facility] ([facility]ER)[address] [place] [address] Hemoglobin (Bld) [Mass/Vol] 11.0 g/dL Low 13.0-17.0 [facility] Comment on above: Performed By: #### L [id number] ####[facility] ([facility]ER)[address] [place] [address] Immature granulocytes (Bld) [#/Vol] 0.01 10*3/uL Normal 0.00-0.20 [facility] Comment on above: Performed By: #### L [id number] ####[facility] ([facility]ER)[address] [place] [address] Immature granulocytes/100 WBC (Bld) 0.2 % Normal 0.0-1.0 [facility] Comment on above: Performed By: #### L [id number] ####[facility] ([facility]ER)[address] [place] [address] Lymphocytes (Bld) [#/Vol] 0.86 10*3/uL Low 1.20-4.00 [facility] Comment on above: Performed By: #### L [id number] ####[facility] ([facility]AKER)[address] [place] [address] Lymphocytes/100 WBC (Bld) 18.3 % Low 20.0-45.0 [facility] Comment on above: Performed By: #### L [id number] ####[facility] (BEAKER)[address] [place] [address] MCH (RBC) [Entitic mass] 29.4 pg Normal 27.0-33.0 [facility] Comment on above: Performed By: #### L [id number] ####[facility] (BEAKER)[address] [place] [address] MCV (RBC) [Entitic vol] 87.2 fL Normal 82.0-98.0 [facility] Comment on above: Performed By: #### L [id number] ####[facility] (BEAKER)[address] [place] [address] Monocytes (Bld) [#/Vol] 0.50 10*3/uL Normal 0.10-1.00 [facility] Comment on above: Performed By: #### L [id number] ####[facility] ([facility])[address] [place] [address] Monocytes/100 WBC (Bld) 10.6 % Normal 5.0-12.0 [facility] Comment on above: Performed By: #### L [id number] ####[facility] ([facility])[address] [place] [address] Neutrophils (Bld) [#/Vol] 3.02 10*3/uL Normal 1.60-7.60 [facility] Comment on above: Performed By: #### L [id number] ####[facility] ([facility])[address] [place] [address] Neutrophils/100 WBC (Bld) 64.2 % Normal 40.0-72.0 [facility] Comment on above: Performed By: #### L [id number] ####[facility] ([facility])[address] [place] [address] NRBC (PER 100 WBCS) BY AUTOMATED COUNT 0.0 % Normal 0 [facility] Comment on above: Performed By: #### L [id number] ####[facility] ([facility])[address] [place] [address] PLATELETS (10*3/UL) IN BLOOD AUTOMATED COUNT 159 10*3/uL Normal 150-400 [facility] Comment on above: Performed By: #### L [id number] ####[facility] ([facility])[address] [place] [address] RBC (Bld) [#/Vol] 3.74 10*6/uL Low 4.20-5.70 [facility] Comment on above: Performed By: #### L [id number] ####[facility] ([facility] [place] [address] WBC (Bld) [#/Vol] 4.71 10*3/uL Normal 4.00-10.60 [facility] Comment on above: Performed By: #### L [id number] ####[facility] ([facility] [place] [address] CO-OXIMETRYon 06-26-2023 CARBOXYHEMOGLOBIN/HE MOGLOBIN TOTAL % IN BLOOD 2.3 % Normal [facility] Comment on above: Performed By: #### L [id number] ####[facility] [id number] [place] [address] [place] Hemoglobin (Bld) [Mass/Vol] 9.5 g/dL Normal [facility] Comment on above: Performed By: #### L [id number] ####[facility] [id number] [place] [address] [place] METHEMOGLOBIN/100 IN BLOOD 0.5 % Normal 0.0-1.5 [facility] Comment on above: Performed By: #### L [id number] ####[facility] [id number] [place] [address] [place] Oxygen saturation in Blood 61.9 % Normal [facility] Comment on above: Performed By: #### L [id number] ####[facility] [id number] [facility] [address] [place] OXYGENATED HEMOGLOBIN IN BLOOD 60.2 % Normal [facility] Comment on above: Performed By: #### L [id number] ####[facility] [id number] [place] [address] [place] COMPREHENSIVE METABOLIC PANE Braulio 06-26-2023 Albumin [Mass/Vol] 4.1 g/dL Normal 3.5-5.7 [facility] Comment on above: Performed By: #### L [id number] ####[facility] ([facility] [place] [address] ALP [Catalytic activity/Vol] 51 U/L Normal 34-104 [facility] Comment on above: Performed By: #### L [id number] ####[facility] ([facility]AKER)[address] [place] [address] ALT [Catalytic activity/Vol] 13 U/L Normal 7-52 [facility] Comment on above: Performed By: #### L [id number] ####[facility] ([facility]ER)[address] [place] [address] Anion gap [Moles/Vol] 10 mmol/L Normal 7-20 [facility] Comment on above: Performed By: #### L [id number] ####[facility] ([facility]ER)[address] [place] [address] AST [Catalytic activity/Vol] 12 U/L Low 13-39 [facility] Comment on above: Performed By: #### L [id number] ####[facility] ([facility]ER)[address] [place] [address] Bilirubin [Mass/Vol] 0.9 mg/dL Normal 0.3-1.0 [facility] Comment on above: Performed By: #### L [id number] ####[facility] ([facility]ER)[address] [place] [address] Calcium [Mass/Vol] 8.6 mg/dL Normal 8.6-10.3 [facility] Comment on above: Performed By: #### L [id number] ####[facility] ([facility]ER)[address] [place] [address] Chloride [Moles/Vol] 104 mmol/L Normal 98-107 [facility] Comment on above: Performed By: #### L [id number] ####[facility] ([facility]ER)[address] [place] [address] CO2 [Moles/Vol] 26 mmol/L Normal 21-31 [facility] Comment on above: Performed By: #### L [id number] ####[facility] ([facility]ER)[address] [place] [address] Creatinine [Mass/Vol] 0.82 mg/dL Normal 0.70-1.30 [facility] Comment on above: Performed By: #### L [id number] ####[facility] ([facility]ER)[address] [place] [address] GLOMERULAR FILTRATION RATE ML/MIN/1.73 SQ M.PREDICTED 107.0 mL/min/1.73m*2 Normal >60.0 [facility] Comment on above: Result Comment: [facility]???s estimated glomerular filtration rate (eGFR) will [...] of individuals. Performed By: #### L [id number] ####[facility] ([facility])[address] [facility] [place] [address] Glucose [Mass/Vol] 97 mg/dL Normal 70-100 [facility] Comment on above: Performed By: #### L [id number] ####[facility] ([facility])[address] [place] [address] Potassium [Moles/Vol] 4.0 mmol/L Normal 3.5-5.1 [facility] Comment on above: Performed By: #### L [id number] ####[facility] ([facility])[address] [facility] [place] [address] Protein [Mass/Vol] 6.0 g/dL Normal 6.0-8.3 [facility] Comment on above: Performed By: #### L [id number] ####[facility] ([facility] [facility] [place] [address] Sodium [Moles/Vol] 136 mmol/L Normal 136-145 [facility] Comment on above: Performed By: #### L [id number] ####[facility] ([facility])[address] [place] [address] Urea nitrogen [Mass/Vol] 12 mg/dL Normal 7-25 [facility] Comment on above: Performed By: #### L [id number] ####[facility] ([facility])[address] [facility] [place] [address] UREA NITROGEN/CREATININE (MASS RATIO) IN SER/PLAS 14.6 Normal [facility] Comment on above: Performed By: #### L [id number] ####[facility] ([facility])[address] [place] [address] CONSULTon 06-26-2023 CONSULT Normal [facility] DEVICE CULTUREon 06-26-2023 Bacteria identified Cx Nom (Unsp spec) No growth at 3 days Normal [facility] Comment on above: Order Comment: RIGHT ARM PICC LINE CULTURE Performed By: #### D EVICE CULTURE ####[facility] ([facility])[address] [place] [address] FIBRINOGENon 06-26-2023 Magnesium [Mass/Vol] 402 mg/dL Normal 150-425 [facility] Comment on above: Order Comment: Pre-o p diagnosis:Aortic valve disorder [I35.9] Performed By: #### L [id number] ####[facility] ([facility])[address] [place] [address] HISTOLOGY - TISSUE EXAMon LAB AP CASE REPORT Normal [facility] Comment on above: Order Comment: Pre-o p diagnosis:Aortic valve disorder [I35.9] Result Comment: Surg ical Pathology Case: [id number] Provider: Paul George MD Collected: 06/26/2023 1153Ordering Location: [facility] Main Operating Room Received: 06/26/2023 1354Pathologist: LILIA Prakashpecimen: Other, AORTIC VALVE LEAFLET FOR HISTOLOGY Performed By: #### L [id number] ####[facility] ([facility])[address] [place] [address] LAB AP CLINICAL INFORMATION Normal [facility] Comment on above: Order Comment: Pre-o p diagnosis:Aortic valve disorder [I35.9] Result Comment: Post -Op [id number] - Aortic valve disorder [ICD-10-CM] Performed By: #### L [id number] ####[facility] ([facility] Network[facility])[address] [place] [address] LAB AP GROSS DESCRIPTION A. Other. Normal [facility] Comment on above: Order Comment: Pre-o [...] identified. The specimen is serially sectioned and metals sales representative sections are submitted in 1 cassette.Nai Sheth, Pathologists' National Secretary Jaspreet Chawla Pathologists' National Secretary Performed By: #### L [id number] ####[facility] ([facility])[address] [place] [address] LAB AP MICROSCOPIC DESCRIPTION Microscopic examination performed. [facility] Comment on above: Order Comment: Pre-o p diagnosis:Aortic valve disorder [I35.9] Performed By: #### L [id number] ####[facility] (BEAKER)[address] [place] [address] LAB AP REPORT FINAL DIAGNOSIS NARRATIVE Normal [facility] Comment on above: Order Comment: Pre-o p diagnosis:Aortic valve disorder [I35.9] Result Comment: A. A ortic valve leaflet, removal:- Valvular tissue with fibrinoid necrosis and acute inflammation. Performed By: #### L [id number] ####[facility] ([facility])[address] [facility] [place] [address] LACTIC ACID WITH 4 HOUR REFL EXon 06-26-2023 LACTATE (MMOL/L) IN SER/PLAS 1.5 mmol/L Normal 0.5-2.2 [facility] Comment on above: Order Comment: Pre-o p diagnosis:Aortic valve disorder [I35.9] Performed By: #### L [id number] ####[facility] ([facility])[address] [place] [address] LACTATE (MMOL/L) IN SER/PLAS 3.1 mmol/L Critically high 0.5-2.2 [facility] Comment on above: Order Comment: Pre-o p diagnosis:Aortic valve disorder [I35.9] Performed By: #### L [id number] ####[facility] ([facility])[address] [place] [address] LACTIC ACID, PLASMAon 2023 LACTATE (MMOL/L) IN SER/PLAS 2.4 mmol/L High 0.5-2.2 [facility] Comment on above: Performed By: #### L [id number] ####[facility] ([facility])[address] [place] [address] MAGNESIUMon 06-26-2023 Magnesium [Mass/Vol] 2.4 mg/dL Normal 1.9-2.7 [facility] Comment on above: Performed By: #### L [id number] ####[facility] ([facility])[address] [place] [address] Magnesium [Mass/Vol] 2.6 mg/dL Normal 1.9-2.7 [facility] Comment on above: Order Comment: Pre-o p diagnosis:Aortic valve disorder [I35.9] Performed By: #### L [id number] ####[facility] ([facility])[address] [place] [address] Magnesium [Mass/Vol] 2.0 mg/dL Normal 1.9-2.7 [facility] Comment on above: Performed By: #### L [id number] ####[facility] ([facility])[address] [place] [address] OPNOTEon 06-26-2023 OPNOTE Normal [facility] PHOSPHORUSon 06-26-2023 Magnesium [Mass/Vol] 3.9 mg/dL Normal 2.5-5.0 [facility] Comment on above: Performed By: #### L [id number] ####[facility] ([facility]AKER)[address] [place] [address] Magnesium [Mass/Vol] 4.2 mg/dL Normal 2.5-5.0 [facility] Comment on above: Performed By: #### L [id number] ####[facility] ([facility])[address] [place] [address] POCT ACTIVATED CLOTTING TIME UNSOLICITED RESULTSon 06-26-2023 POC ACTIVATED CLOTTING TIME 143 sec Normal 82-152 [facility] Comment on above: Performed By: #### L [id number] ####[facility] ([facility])[address] [place] [address] POC ACTIVATED CLOTTING TIME 148 sec Normal 82-152 [facility] Comment on above: Performed By: #### L [id number] ####[facility] ([facility])[address] [place] [address] POC ACTIVATED CLOTTING TIME 473 sec High 82-152 [facility] Comment on above: Performed By: #### L [id number] ####[facility] ([facility])[address] [place] [address] POC ACTIVATED CLOTTING TIME 562 sec High 82-152 [facility] Comment on above: Performed By: #### L [id number] ####[facility] ([facility])[address] [place] [address] POC ACTIVATED CLOTTING TIME 602 sec High 82-152 [facility] Comment on above: Performed By: #### L [id number] ####[facility] ([facility])[address] [place] [address] POC ACTIVATED CLOTTING TIME 679 sec High 82-152 [facility] Comment on above: Performed By: #### L [id number] ####[facility] ([facility])[address] [place] [address] POC ACTIVATED CLOTTING TIME 772 sec High 82-152 [facility] Comment on above: Performed By: #### L [id number] ####[facility] ([facility])[address] [place] [address] POC ACTIVATED CLOTTING TIME 772 sec High 82-152 [facility] Comment on above: Performed By: #### L [id number] ####[facility] ([facility])[address] [place] [address] POC ACTIVATED CLOTTING TIME 701 sec High 82-152 [facility] Comment on above: Performed By: #### L [id number] ####[facility] ([facility])[address] [place] [address] POC ACTIVATED CLOTTING TIME 154 sec High 82-152 [facility] Comment on above: Performed By: #### L [id number] ####[facility] ([facility])[address] [place] [address] POCT GLUCOSE METER UNSOLICIT ED RESULTSon 06-26-2023 Glucose [Mass/Vol] 132 mg/dL High 70-105 [facility] Comment on above: Order Comment: Waive d Testing in the ED is performed under the ED CLIA certificate #[id number]. Result Comment: mmcc gabo Performed By: #### L [id number] ####[facility] ([facility])[address] [place] [address] Glucose [Mass/Vol] 126 mg/dL High 70-105 [facility] Comment on above: Order Comment: Waive d Testing in the ED is performed under the ED CLIA certificate #[id number]. Result Comment: mmcc gabo Performed By: #### L [id number] ####[facility] ([facility])[address] [place] [address] Glucose [Mass/Vol] 135 mg/dL High 70-105 [facility] Comment on above: Order Comment: Waive d Testing in the ED is performed under the ED CLIA certificate #[id number]. Result Comment: pcar r Performed By: #### L [id number] ####[facility] ([facility])[address] [place] [address] Glucose [Mass/Vol] 131 mg/dL High 70-105 [facility] Comment on above: Order Comment: Waive d Testing in the ED is performed under the ED CLIA certificate #[id number]. Result Comment: [email or web address] Performed By: #### L [id number] ####[facility] ([facility])[address] [place] [address] POCT PERFUSION PANEL UNSOLIC ITED RESULTSon 06-26-2023 CO2 [Moles/Vol] 22.0 mmol/L Normal 21.0-29.0 [facility] Comment on above: Performed By: #### L [id number] ####[facility] ([facility]ER)[address] [place] [address] Glucose [Mass/Vol] 197 mg/dL High 70-105 [facility] Comment on above: Performed By: #### L [id number] ####[facility] ([facility])[address] [place] [address] HCO3 (Bld) [Moles/Vol] 20.8 mmol/L Low 23.0-28.0 [facility] Comment on above: Performed By: #### L [id number] ####[facility] (BE[facility]ER)[address] [place] [address] Hematocrit (Bld) [Volume fraction] 30 % Low 38-51 [facility] Comment on above: Performed By: #### L [id number] ####[facility] ([facility])[address] [place] [address] Hemoglobin (Bld) [Mass/Vol] 10.2 g/dL Low 12.0-17.0 [facility] Comment on above: Performed By: #### L [id number] ####[facility] ([facility])[address] [place] [address] POCT BASE EXCESS -4.0 mmol/L Low -2.0-3.0 [facility] Comment on above: Performed By: #### L [id number] ####[facility] ([facility])[address] [place] [address] POCT IONIZED CALCIUM 1.17 mmol/L Normal 1.12-1.32 [facility] Comment on above: Performed By: #### L [id number] ####[facility] ([facility])[address] [place] [address] POCT PCO2 36.5 mmHg Low 41.0-51.0 [facility] Comment on above: Performed By: #### L [id number] ####[facility] [address] POCT PH 7.36 Normal 7.31-7.41 [facility] Comment on above: Performed By: #### L [id number] ####[facility] [address] POCT PO2 240 mmHg High 80-105 [facility] Comment on above: Performed By: #### L [id number] ####[facility] [address] POCT SO2 100 % High 95-98 [facility] Comment on above: Performed By: #### L [id number] ####[facility] [place] [address] Potassium [Moles/Vol] 3.9 mmol/L Normal 3.5-4.9 [facility] Comment on above: Performed By: #### L [id number] ####[facility] ([facility])[address] [place] [address] Sodium [Moles/Vol] 139 mmol/L Normal 138.0-146.0 [facility] Comment on above: Performed By: #### L [id number] ####[facility] ([facility])[address] [place] [address] CO2 [Moles/Vol] 23.0 mmol/L Normal 21.0-29.0 [facility] Comment on above: Performed By: #### L [id number] ####[facility] ([facility])[address] [place] [address] Glucose [Mass/Vol] 208 mg/dL High 70-105 [facility] Comment on above: Performed By: #### L [id number] ####[facility] ([facility])[address] [place] [address] HCO3 (Bld) [Moles/Vol] 21.6 mmol/L Low 23.0-28.0 [facility] Comment on above: Performed By: #### L [id number] ####[facility] [place] [address] Hematocrit (Bld) [Volume fraction] 28 % Low 38-51 [facility] Comment on above: Performed By: #### L [id number] ####[facility] ([facility])[address] [place] [address] Hemoglobin (Bld) [Mass/Vol] 9.5 g/dL Low 12.0-17.0 [facility] Comment on above: Performed By: #### L [id number] ####[facility] [place] [address] POCT BASE EXCESS -4.0 mmol/L Low -2.0-3.0 [facility] Comment on above: Performed By: #### L [id number] ####[facility] [place] [address] POCT IONIZED CALCIUM 1.22 mmol/L Normal 1.12-1.32 [facility] Comment on above: Performed By: #### L [id number] ####[facility] ([facility])[address] [place] [address] POCT PCO2 38.6 mmHg Low 41.0-51.0 [facility] Comment on above: Performed By: #### L [id number] ####[facility] ([facility])[address] [place] [address] POCT PH 7.36 Normal 7.31-7.41 [facility] Comment on above: Performed By: #### L [id number] ####[facility] ([facility])[address] [place] [address] POCT PO2 265 mmHg High 80-105 [facility] Comment on above: Performed By: #### L [id number] ####[facility] ([facility])[address] [place] [address] POCT SO2 100 % High 95-98 [facility] Comment on above: Performed By: #### L [id number] ####[facility] ([facility])[address] [place] [address] Potassium [Moles/Vol] 3.9 mmol/L Normal 3.5-4.9 [facility] Comment on above: Performed By: #### L [id number] ####[facility] ([facility])[address] [place] [address] Sodium [Moles/Vol] 137 mmol/L Low 138.0-146.0 [facility] Comment on above: Performed By: #### L [id number] ####[facility] ([facility])[address] [place] [address] CO2 [Moles/Vol] 25.0 mmol/L Normal 21.0-29.0 [facility] Comment on above: Performed By: #### L [id number] ####[facility] ([facility])[address] [place] [address] Glucose [Mass/Vol] 216 mg/dL High 70-105 [facility] Comment on above: Performed By: #### L [id number] ####[facility] ([facility])[address] [place] [address] HCO3 (Bld) [Moles/Vol] 23.3 mmol/L Normal 23.0-28.0 [facility] Comment on above: Performed By: #### L [id number] ####[facility] ([facility])[address] [place] [address] Hematocrit (Bld) [Volume fraction] 28 % Low 38-51 [facility] Comment on above: Performed By: #### L [id number] ####[facility] ([facility])[address] [address] Hemoglobin (Bld) [Mass/Vol] 9.5 g/dL Low 12.0-17.0 [facility] Comment on above: Performed By: #### L [id number] ####[facility] ([facility])[address] [address] POCT BASE EXCESS -3.0 mmol/L Low -2.0-3.0 [facility] Comment on above: Performed By: #### L [id number] ####[facility] ([facility])[address] [address] POCT IONIZED CALCIUM 1.29 mmol/L Normal 1.12-1.32 [facility] Comment on above: Performed By: #### L [id number] ####[facility] ([facility])[address] [address] POCT PCO2 46.6 mmHg Normal 41.0-51.0 [facility] Comment on above: Performed By: #### L [id number] ####[facility] ([facility])[address] [address] POCT PH 7.31 Normal 7.31-7.41 [facility] Comment on above: Performed By: #### L [id number] ####[facility] ([facility])[address] [address] POCT PO2 348 mmHg High 80-105 [facility] Comment on above: Performed By: #### L [id number] ####[facility] ([facility])[address] [place] [address] POCT SO2 100 % High 95-98 [facility] Comment on above: Performed By: #### L [id number] ####[facility] ([facility])[address] [place] [address] Potassium [Moles/Vol] 4.7 mmol/L Normal 3.5-4.9 [facility] Comment on above: Performed By: #### L [id number] ####[facility] ([facility])[address] [place] [address] Sodium [Moles/Vol] 136 mmol/L Low 138.0-146.0 [facility] Comment on above: Performed By: #### L [id number] ####[facility] ([facility])[address] [place] [address] CO2 [Moles/Vol] 26.0 mmol/L Normal 21.0-29.0 [facility] Comment on above: Performed By: #### L [id number] ####[facility] ([facility])[address] [place] [address] Glucose [Mass/Vol] 173 mg/dL High 70-105 [facility] Comment on above: Performed By: #### L [id number] ####[facility] ([facility])[address] [place] [address] HCO3 (Bld) [Moles/Vol] 24.8 mmol/L Normal 23.0-28.0 [facility] Comment on above: Performed By: #### L [id number] ####[facility] ([facility])[address] [place] [address] Hematocrit (Bld) [Volume fraction] 30 % Low 38-51 [facility] Comment on above: Performed By: #### L [id number] ####[facility] ([facility])[address] [place] [address] Hemoglobin (Bld) [Mass/Vol] 10.2 g/dL Low 12.0-17.0 [facility] Comment on above: Performed By: #### L [id number] ####[facility] ([facility])[address] [place] [address] POCT BASE EXCESS 0.0 mmol/L Normal -2.0-3.0 [facility] Comment on above: Performed By: #### L [id number] ####[facility] ([facility])[address] [place] [address] POCT IONIZED CALCIUM 1.57 mmol/L Critically high 1.12-1.32 [facility] Comment on above: Performed By: #### L [id number] ####[facility] [address] POCT PCO2 40.5 mmHg Low 41.0-51.0 [facility] Comment on above: Performed By: #### L [id number] ####[facility] [address] POCT PH 7.40 Normal 7.31-7.41 [facility] Comment on above: Performed By: #### L [id number] ####[facility] [address] POCT PO2 321 mmHg High 80-105 [facility] Comment on above: Performed By: #### L [id number] ####[facility] ([facility] [address] POCT SO2 100 % High 95-98 [facility] Comment on above: Performed By: #### L [id number] ####[facility] ([facility] [place], [place] [address] Potassium [Moles/Vol] 5.4 mmol/L High 3.5-4.9 [facility] Comment on above: Performed By: #### L [id number] ####[facility] ([facility] [place] [address] Sodium [Moles/Vol] 134 mmol/L Low 138.0-146.0 [facility] Comment on above: Performed By: #### L [id number] ####[facility] ([facility])[address] [place], [place] [address] CO2 [Moles/Vol] 25.0 mmol/L Normal 21.0-29.0 [facility] Comment on above: Performed By: #### L [id number] ####[facility] ([facility])[address] [place] [address] Glucose [Mass/Vol] 171 mg/dL High 70-105 [facility] Comment on above: Performed By: #### L [id number] ####[facility] ([facility])[address] [place] [address] HCO3 (Bld) [Moles/Vol] 23.6 mmol/L Normal 23.0-28.0 [facility] Comment on above: Performed By: #### L [id number] ####[facility] ([facility] [place] [address] Hematocrit (Bld) [Volume fraction] 30 % Low 38-51 [facility] Comment on above: Performed By: #### L [id number] ####[facility] (BE[facility]ER)[address] [place] [address] Hemoglobin (Bld) [Mass/Vol] 10.2 g/dL Low 12.0-17.0 [facility] Comment on above: Performed By: #### L [id number] ####[facility] ([facility] [place] [address] POCT BASE EXCESS -2.0 mmol/L Normal -2.0-3.0 [facility] Comment on above: Performed By: #### L [id number] ####[facility] [place] [address] POCT IONIZED CALCIUM 1.12 mmol/L Normal 1.12-1.32 [facility] Comment on above: Performed By: #### L [id number] ####[facility] (BE[facility]ER)[address] [place] [address] POCT PCO2 44.0 mmHg Normal 41.0-51.0 [facility] Comment on above: Performed By: #### L [id number] ####[facility] (BE[facility]ER)[address] [place] [address] POCT PH 7.34 Normal 7.31-7.41 [facility] Comment on above: Performed By: #### L [id number] ####[facility] ([facility])[address] [place] [address] POCT PO2 390 mmHg High 80-105 [facility] Comment on above: Performed By: #### L [id number] ####[facility] ([facility])[address] [place] [address] POCT SO2 100 % High 95-98 [facility] Comment on above: Performed By: #### L [id number] ####[facility] ([facility])[address] [place] [address] Potassium [Moles/Vol] 5.4 mmol/L High 3.5-4.9 [facility] Comment on above: Performed By: #### L [id number] ####[facility] (BE[facility]ER)[address] [place] [address] Sodium [Moles/Vol] 136 mmol/L Low 138.0-146.0 [facility] Comment on above: Performed By: #### L [id number] ####[facility] ([facility])[address] [place] [address] CO2 [Moles/Vol] 25.0 mmol/L Normal 21.0-29.0 [facility] Comment on above: Performed By: #### L [id number] ####[facility] ([facility]ER)[address] [place] [address] Glucose [Mass/Vol] 184 mg/dL High 70-105 [facility] Comment on above: Performed By: #### L [id number] ####[facility] ([facility])[address] [place] [address] HCO3 (Bld) [Moles/Vol] 23.7 mmol/L Normal 23.0-28.0 [facility] Comment on above: Performed By: #### L [id number] ####[facility] ([facility])[address] [place] [address] Hematocrit (Bld) [Volume fraction] 33 % Low 38-51 [facility] Comment on above: Performed By: #### L [id number] ####[facility] ([facility])[address] [address] Hemoglobin (Bld) [Mass/Vol] 11.2 g/dL Low 12.0-17.0 [facility] Comment on above: Performed By: #### L [id number] ####[facility] ([facility])[address] [address] POCT BASE EXCESS -3.0 mmol/L Low -2.0-3.0 [facility] Comment on above: Performed By: #### L [id number] ####[facility] ([facility])[address] [address] POCT IONIZED CALCIUM 1.09 mmol/L Low 1.12-1.32 [facility] Comment on above: Performed By: #### L [id number] ####[facility] ([facility])[address] [address] POCT PCO2 46.1 mmHg Normal 41.0-51.0 [facility] Comment on above: Performed By: #### L [id number] ####[facility] ([facility])[address] [address] POCT PH 7.32 Normal 7.31-7.41 [facility] Comment on above: Performed By: #### L [id number] ####[facility] ([facility])[address] [address] POCT PO2 400 mmHg High 80-105 [facility] Comment on above: Performed By: #### L [id number] ####[facility] ([facility])[address] [address] POCT SO2 100 % High 95-98 [facility] Comment on above: Performed By: #### L [id number] ####[facility] ([facility])[address] [address] Potassium [Moles/Vol] 4.5 mmol/L Normal 3.5-4.9 [facility] Comment on above: Performed By: #### L [id number] ####[facility] ([facility])[address] [place] [address] Sodium [Moles/Vol] 136 mmol/L Low 138.0-146.0 [facility] Comment on above: Performed By: #### L [id number] ####[facility] ([facility])[address] [place] [address] CO2 [Moles/Vol] 25.0 mmol/L Normal 21.0-29.0 [facility] Comment on above: Performed By: #### L [id number] ####[facility] ([facility]ER)[address] [place] [address] Glucose [Mass/Vol] 193 mg/dL High 70-105 [facility] Comment on above: Performed By: #### L [id number] ####[facility] ([facility])[address] [place] [address] HCO3 (Bld) [Moles/Vol] 23.6 mmol/L Normal 23.0-28.0 [facility] Comment on above: Performed By: #### L [id number] ####[facility] (BE[facility]ER)[address] [place] [address] Hematocrit (Bld) [Volume fraction] 26 % Low 38-51 [facility] Comment on above: Performed By: #### L [id number] ####[facility] ([facility])[address] [place] [address] Hemoglobin (Bld) [Mass/Vol] 8.8 g/dL Low 12.0-17.0 [facility] Comment on above: Performed By: #### L [id number] ####[facility] ([facility])[address] [place] [address] POCT BASE EXCESS -2.0 mmol/L Normal -2.0-3.0 [facility] Comment on above: Performed By: #### L [id number] ####[facility] ([facility])[address] [place] [address] POCT IONIZED CALCIUM 1.06 mmol/L Low 1.12-1.32 [facility] Comment on above: Performed By: #### L [id number] ####[facility] ([facility])[address] [place] [address] POCT PCO2 40.9 mmHg Low 41.0-51.0 [facility] Comment on above: Performed By: #### L [id number] ####[facility] [address] POCT PH 7.37 Normal 7.31-7.41 [facility] Comment on above: Performed By: #### L [id number] ####[facility] [place] [address] POCT PO2 510 mmHg High 80-105 [facility] Comment on above: Performed By: #### L [id number] ####[facility] [address] POCT SO2 100 % High 95-98 [facility] Comment on above: Performed By: #### L [id number] ####[facility] (BE[facility])[address] [place] [address] Potassium [Moles/Vol] 4.4 mmol/L Normal 3.5-4.9 [facility] Comment on above: Performed By: #### L [id number] ####[facility] ([facility])[address] [place] [address] Sodium [Moles/Vol] 135 mmol/L Low 138.0-146.0 [facility] Comment on above: Performed By: #### L [id number] ####[facility] ([facility])[address] [place] [address] CO2 [Moles/Vol] 24.0 mmol/L Normal 21.0-29.0 [facility] Comment on above: Performed By: #### L [id number] ####[facility] ([facility])[address] [place] [address] Glucose [Mass/Vol] 185 mg/dL High 70-105 [facility] Comment on above: Performed By: #### L [id number] ####[facility] ([facility])[address] [place] [address] HCO3 (Bld) [Moles/Vol] 22.7 mmol/L Low 23.0-28.0 [facility] Comment on above: Performed By: #### L [id number] ####[facility] [place] [address] Hematocrit (Bld) [Volume fraction] 26 % Low 38-51 [facility] Comment on above: Performed By: #### L [id number] ####[facility] (BE[facility])[address] [place] [address] Hemoglobin (Bld) [Mass/Vol] 8.8 g/dL Low 12.0-17.0 [facility] Comment on above: Performed By: #### L [id number] ####[facility] (BE[facility]ER)[address] [place] [address] POCT BASE EXCESS -2.0 mmol/L Normal -2.0-3.0 [facility] Comment on above: Performed By: #### L [id number] ####[facility] (BE[facility])[address] [place] [address] POCT IONIZED CALCIUM 1.10 mmol/L Low 1.12-1.32 [facility] Comment on above: Performed By: #### L [id number] ####[facility] (BE[facility]ER)[address] [place] [address] POCT PCO2 37.2 mmHg Low 41.0-51.0 [facility] Comment on above: Performed By: #### L [id number] ####[facility] (BE[facility]ER)[address] [place] [address] POCT PH 7.39 Normal 7.31-7.41 [facility] Comment on above: Performed By: #### L [id number] ####[facility] ([facility])[address] [place] [address] POCT PO2 485 mmHg High 80-105 [facility] Comment on above: Performed By: #### L [id number] ####[facility] ([facility])[address] [place] [address] POCT SO2 100 % High 95-98 [facility] Comment on above: Performed By: #### L [id number] ####[facility] ([facility])[address] [place] [address] Potassium [Moles/Vol] 3.7 mmol/L Normal 3.5-4.9 [facility] Comment on above: Performed By: #### L [id number] ####[facility] ([facility])[address] [place] [address] Sodium [Moles/Vol] 136 mmol/L Low 138.0-146.0 [facility] Comment on above: Performed By: #### L [id number] ####[facility] ([facility])[address] [place] [address] CO2 [Moles/Vol] 23.0 mmol/L Normal 21.0-29.0 [facility] Comment on above: Performed By: #### L [id number] ####[facility] ([facility])[address] [place] [address] Glucose [Mass/Vol] 132 mg/dL High 70-105 [facility] Comment on above: Performed By: #### L [id number] ####[facility] ([facility]AK[facility])[address] [place] [address] HCO3 (Bld) [Moles/Vol] 21.5 mmol/L Low 23.0-28.0 [facility] Comment on above: Performed By: #### L [id number] ####[facility] ([facility]AK[facility])[address] [place] [address] Hematocrit (Bld) [Volume fraction] 29 % Low 38-51 [facility] Comment on above: Performed By: #### L [id number] ####[facility] ([facility]AKER)[address] [address] Hemoglobin (Bld) [Mass/Vol] 9.9 g/dL Low 12.0-17.0 [facility] Comment on above: Performed By: #### L [id number] ####[facility] ([facility])[address] [address] POCT BASE EXCESS -4.0 mmol/L Low -2.0-3.0 [facility] Comment on above: Performed By: #### L [id number] ####[facility] (BEAKER)[address] [address] POCT IONIZED CALCIUM 1.27 mmol/L Normal 1.12-1.32 [facility] Comment on above: Performed By: #### L [id number] ####[facility] ([facility]ER)[address] [address] POCT PCO2 38.3 mmHg Low 41.0-51.0 [facility] Comment on above: Performed By: #### L [id number] ####[facility] ([facility]AKER)[address] [address] POCT PH 7.36 Normal 7.31-7.41 [facility] Comment on above: Performed By: #### L [id number] ####[facility] ([facility])[address] [address] POCT PO2 214 mmHg High 80-105 [facility] Comment on above: Performed By: #### L [id number] ####[facility] ([facility])[address] [address] POCT SO2 100 % High 95-98 [facility] Comment on above: Performed By: #### L [id number] ####[facility] ([facility]ER)[address] [address] Potassium [Moles/Vol] 3.9 mmol/L Normal 3.5-4.9 [facility] Comment on above: Performed By: #### L [id number] ####[facility] ([facility]ER)[address] [place] [address] Sodium [Moles/Vol] 137 mmol/L Low 138.0-146.0 [facility] Comment on above: Performed By: #### L [id number] ####[facility] ([facility]AKER)[address] [place] [address] POCT BASE EXCESS Normal [facility] Comment on above: Performed By: #### L [id number] ####[facility] [place] [address] POCT GLUCOSE Normal [facility] Comment on above: Performed By: #### L [id number] ####[facility] ([facility] [place] [address] [facility] Comment on above: Performed By: #### L [id number] ####[facility] [place] [address] POCT HEMATOCRIT Normal [facility] Comment on above: Performed By: #### L [id number] ####[facility] ([facility] [place] [address] POCT HEMOGLOBIN Normal [facility] Comment on above: Performed By: #### L [id number] ####[facility] ([facility]ER)[address] [place] [address] POCT IONIZED CALCIUM Normal [facility] Comment on above: Performed By: #### L [id number] ####[facility] ([facility]ER)[address] [place] [address] POCT PCO2 Normal [facility] Comment on above: Performed By: #### L [id number] ####[facility] ([facility]ER)[address] [place] [address] POCT PH Normal [facility] Comment on above: Performed By: #### L [id number] ####[facility] ([facility]ER)[address] [place] [address] POCT PO2 53 mmHg Low 80-105 [facility] Comment on above: Performed By: #### L [id number] ####[facility] ([facility]ER)[address] [place] [address] POCT POTASSIUM Normal [facility] Comment on above: Performed By: #### L [id number] ####[facility] ([facility]ER)[address] [place] [address] POCT SO2 85 % Low 95-98 [facility] Comment on above: Performed By: #### L [id number] ####[facility] (BEAKER)[address] [place] [address] POCT SODIUM Normal [facility] Comment on above: Performed By: #### L [id number] ####[facility] (BEAKER)[address] [place] [address] POCT TOTAL CO2 Normal [facility] Comment on above: Performed By: #### L [id number] ####[facility] ([facility]ER)[address] [place] [address] CO2 [Moles/Vol] 25.0 mmol/L Normal 21.0-29.0 [facility] Comment on above: Performed By: #### L [id number] ####[facility] ([facility]AKER)[address] [place] [address] Glucose [Mass/Vol] 114 mg/dL High 70-105 [facility] Comment on above: Performed By: #### L [id number] ####[facility] ([facility]AKER)[address] [place] [address] HCO3 (Bld) [Moles/Vol] 23.4 mmol/L Normal 23.0-28.0 [facility] Comment on above: Performed By: #### L [id number] ####[facility] ([facility]AKER)[address] [place] [address] Hematocrit (Bld) [Volume fraction] 30 % Low 38-51 [facility] Comment on above: Performed By: #### L [id number] ####[facility] ([facility]ER)[address] [address] Hemoglobin (Bld) [Mass/Vol] 10.2 g/dL Low 12.0-17.0 [facility] Comment on above: Performed By: #### L [id number] ####[facility] ([facility]ER)[address] [address] POCT BASE EXCESS -2.0 mmol/L Normal -2.0-3.0 [facility] Comment on above: Performed By: #### L [id number] ####[facility] (BEAKER)[address] [address] POCT IONIZED CALCIUM 1.19 mmol/L Normal 1.12-1.32 [facility] Comment on above: Performed By: #### L [id number] ####[facility] ([facility]ER)[address] [address] POCT PCO2 40.0 mmHg Low 41.0-51.0 [facility] Comment on above: Performed By: #### L [id number] ####[facility] ([facility]ER)[address] [address] POCT PH 7.38 Normal 7.31-7.41 [facility] Comment on above: Performed By: #### L [id number] ####[facility] ([facility]ER)[address] [address] POCT PO2 159 mmHg High 80-105 [facility] Comment on above: Performed By: #### L [id number] ####[facility] ([facility]ER)[address] [address] POCT SO2 99 % High 95-98 [facility] Comment on above: Performed By: #### L [id number] ####[facility] ([facility]ER)[address] [address] Potassium [Moles/Vol] 4.1 mmol/L Normal 3.5-4.9 [facility] Comment on above: Performed By: #### L [id number] ####[facility] (BEAKER)[address] [place] [address] Sodium [Moles/Vol] 137 mmol/L Low 138.0-146.0 [facility] Comment on above: Performed By: #### L [id number] ####[facility] (BEAKER)[address] [place] [address] PROTIME-INRon 06-26-2023 INR IN PPP BY COAGULATION ASSAY 1.29 High 0.90-1.10 [facility] Comment on above: Result Comment: ACCC [...] CHEST 1995;108:231S-246S. Performed By: #### L [id number] ####[facility] (BEAKER)[address] [place] [address] PROTHROMBIN TIME (PT) IN PPP BY COAGULATION ASSAY 16.1 Seconds High 12.3-14.8 [facility] Comment on above: Performed By: #### L [id number] ####[facility] (BEAKER)[address] [place] [address] INR IN PPP BY COAGULATION ASSAY 1.37 High 0.90-1.10 [facility] Comment on above: Order Comment: Pre-o [...] CHEST 1995;108:231S-246S. Performed By: #### L [id number] ####[facility] [employer])[address] [place] [address] PROTHROMBIN TIME (PT) IN PPP BY COAGULATION ASSAY 16.9 Seconds High 12.3-14.8 [facility] Comment on above: Order Comment: Pre-o p diagnosis:Aortic valve disorder [I35.9] Performed By: #### L [id number] ####[facility] [employer])[address] [place] [address] INR IN PPP BY COAGULATION ASSAY 1.06 Normal 0.90-1.10 [facility] Comment on above: Result Comment: [facility] P RECOMMENDED INR FOR WARFARIN THERAPY CONDITION INRPROPHYLAXIS OF VENOUS THROMBOSIS 2-3(HIGH-RISK SURGERY)TREATMENT OF VENOUS THROMBOSIS 2-3TREATMENT OF PULMONARY EMBOLISM 2-3PREVENTION OF SYSTEMIC EMBOLISM: 2-3 ACUTE MYOCARDIAL INFARCTION TISSUE HEART VALVES VALVULAR HEART DISEASE ATRIAL FIBRILLATION RECURRENT SYSTEMIC EMBOLISMMECHANICAL HEART VALVE 2.5-3.5 FROM: ORAL ANTICOAGULANTS. MECHANISM OF ACTION, CLINICAL EFFECTIVENESS, AND OPTIMAL THERAPEUTIC RANGE. CHEST 1995;108:231S-246S. Performed By: #### L [id number] ####[facility] ([facility])[address] [place] [address] PROTHROMBIN TIME (PT) IN PPP BY COAGULATION ASSAY 13.8 Seconds Normal 12.3-14.8 [facility] Comment on above: Performed By: #### L [id number] ####[facility] ([facility])[address] [place] [address] TISSUE CULTUREon 06-26-2023 Bacteria identified Cx Nom (Unsp spec) No growth at 5 days Normal [facility] Comment on above: Order Comment: Pre-o p diagnosis:Aortic valve disorder [I35.9] Performed By: #### L [id number] ####[facility] [employer])[address] [place] [address] GRAM STAIN RESULT Normal [facility] Comment on above: Order Comment: Pre-o p diagnosis:Aortic valve disorder [I35.9] Result Comment: No p olymorphonuclear leukocytes seenNo organisms seen Performed By: #### L [id number] ####[facility] ([facility])[address] [place] [address] 30on 06-25-2023 30 Normal [facility] ANESon 06-25-2023 ANES Normal [facility] APTTon 06-25-2023 ACTIVATED PARTIAL THROMBOPLASTIN TIME IN PPP BY COAGULATION ASSAY 31.3 Seconds Normal 25.0-35.0 [facility] Comment on above: Result Comment: Clin ical significance of the APTT is questionable in the presence of heparin. Performed By: #### L [id number] ####[facility] ([facility])[address] [place] [address] CBC WITH AUTO DIFFERENTIALon 06-25-2023 Basophils (Bld) [#/Vol] 0.04 10*3/uL Normal 0.00-0.20 [facility] Comment on above: Performed By: #### L [id number] ####[facility] ([facility])[address] [place] [address] Basophils/100 WBC (Bld) 0.8 % Normal 0.0-1.0 [facility] Comment on above: Performed By: #### L [id number] ####[facility] ([facility])[address] [place] [address] Eosinophils (Bld) [#/Vol] 0.38 10*3/uL Normal 0.00-0.50 [facility] Comment on above: Performed By: #### L [id number] ####[facility] ([facility])[address] [place] [address] Eosinophils/100 WBC (Bld) 7.7 % High 0.0-6.0 [facility] Comment on above: Performed By: #### L [id number] ####[facility] ([facility])[address] [place] [address] Erythrocyte distribution width (RBC) [Ratio] 16.0 % High 11.5-15.0 [facility] Comment on above: Performed By: #### L [id number] ####[facility] ([facility])[address] [place] [address] ERYTHROCYTE MEAN CORPUSCULAR HEMOGLOBIN CONCENTRATION (G/DL) BY AUTOMATED 34.0 g/dL Normal 32.0-35.0 [facility] Comment on above: Performed By: #### L [id number] ####[facility] ([facility])[address] [place] [address] Hematocrit (Bld) [Volume fraction] 32.6 % Low 39.0-55.0 [facility] Comment on above: Performed By: #### L [id number] ####[facility] (BEAKER)[address] [place] [address] Hemoglobin (Bld) [Mass/Vol] 11.1 g/dL Low 13.0-17.0 [facility] Comment on above: Performed By: #### L [id number] ####[facility] (BEAKER)[address] [place] [address] Immature granulocytes (Bld) [#/Vol] 0.02 10*3/uL Normal 0.00-0.20 [facility] Comment on above: Performed By: #### L [id number] ####[facility] (BEAKER)[address] [place] [address] Immature granulocytes/100 WBC (Bld) 0.4 % Normal 0.0-1.0 [facility] Comment on above: Performed By: #### L [id number] ####[facility] (BEAKER)[address] [place] [address] Lymphocytes (Bld) [#/Vol] 0.80 10*3/uL Low 1.20-4.00 [facility] Comment on above: Performed By: #### L [id number] ####[facility] (BEAKER)[address] [place] [address] Lymphocytes/100 WBC (Bld) 16.2 % Low 20.0-45.0 [facility] Comment on above: Performed By: #### L [id number] ####[facility] (BEAKER)[address] [place] [address] MCH (RBC) [Entitic mass] 29.8 pg Normal 27.0-33.0 [facility] Comment on above: Performed By: #### L [id number] ####[facility] (BEAKER)[address] [place] [address] MCV (RBC) [Entitic vol] 87.4 fL Normal 82.0-98.0 [facility] Comment on above: Performed By: #### L [id number] ####[facility] (BEAKER)[address] [place] [address] Monocytes (Bld) [#/Vol] 0.42 10*3/uL Normal 0.10-1.00 [facility] Comment on above: Performed By: #### L [id number] ####[facility] (BEAKER)[address] [address] Monocytes/100 WBC (Bld) 8.5 % Normal 5.0-12.0 [facility] Comment on above: Performed By: #### L [id number] ####[facility] (AKER)[address] [address] Neutrophils (Bld) [#/Vol] 3.29 10*3/uL Normal 1.60-7.60 [facility] Comment on above: Performed By: #### L [id number] ####[facility] ([facility])[address] [address] Neutrophils/100 WBC (Bld) 66.4 % Normal 40.0-72.0 [facility] Comment on above: Performed By: #### L [id number] ####[facility] ([facility] [address] NRBC (PER 100 WBCS) BY AUTOMATED COUNT 0.0 % Normal 0 [facility] Comment on above: Performed By: #### L [id number] ####[facility] ([facility] [place] [address] PLATELETS (10*3/UL) IN BLOOD AUTOMATED COUNT 142 10*3/uL Low 150-400 [facility] Comment on above: Performed By: #### L [id number] ####[facility] ([facility] [address] RBC (Bld) [#/Vol] 3.73 10*6/uL Low 4.20-5.70 [facility] Comment on above: Performed By: #### L [id number] ####[facility] (BEAKER)[address] [place] [address] WBC (Bld) [#/Vol] 4.95 10*3/uL Normal 4.00-10.60 [facility] Comment on above: Performed By: #### L [id number] ####[facility] (BEAKER)[address] [place] [address] COMPREHENSIVE METABOLIC PANE Braulio 06-25-2023 Albumin [Mass/Vol] 3.9 g/dL Normal 3.5-5.7 [facility] Comment on above: Performed By: #### L [id number] ####[facility] ([facility] [place] [address] ALP [Catalytic activity/Vol] 49 U/L Normal 34-104 [facility] Comment on above: Performed By: #### L [id number] ####[facility] (BEAKER)[address] [place] [address] ALT [Catalytic activity/Vol] 13 U/L Normal 7-52 [facility] Comment on above: Performed By: #### L [id number] ####[facility] (BEAKER)[address] [place] [address] Anion gap [Moles/Vol] 11 mmol/L Normal 7-20 [facility] Comment on above: Performed By: #### L [id number] ####[facility] (BEAKER)[address] [place] [address] AST [Catalytic activity/Vol] 12 U/L Low 13-39 [facility] Comment on above: Performed By: #### L [id number] ####[facility] (BEAKER)[address] [place] [address] Bilirubin [Mass/Vol] 0.8 mg/dL Normal 0.3-1.0 [facility] Comment on above: Performed By: #### L [id number] ####[facility] (BEAKER)[address] [place] [address] Calcium [Mass/Vol] 8.8 mg/dL Normal 8.6-10.3 [facility] Comment on above: Performed By: #### L [id number] ####[facility] ([facility])[address] [place] [address] Chloride [Moles/Vol] 102 mmol/L Normal 98-107 [facility] Comment on above: Performed By: #### L [id number] ####[facility] ([facility])[address] [place] [address] CO2 [Moles/Vol] 26 mmol/L Normal 21-31 [facility] Comment on above: Performed By: #### L [id number] ####[facility] ([facility])[address] [place] [address] Creatinine [Mass/Vol] 0.84 mg/dL Normal 0.70-1.30 [facility] Comment on above: Performed By: #### L [id number] ####[facility] ([facility])[address] [place] [address] GLOMERULAR FILTRATION RATE ML/MIN/1.73 SQ M.PREDICTED 106.2 mL/min/1.73m*2 Normal >60.0 [facility] Comment on above: Result Comment: The [facility]???s estimated glomerular filtration rate (eGFR) will [...] of individuals. Performed By: #### L [id number] ####[facility] ([facility])[address] [place] [address] Glucose [Mass/Vol] 93 mg/dL Normal 70-100 [facility] Comment on above: Performed By: #### L [id number] ####[facility] ([facility])[address] [place] [address] Potassium [Moles/Vol] 4.3 mmol/L Normal 3.5-5.1 [facility] Comment on above: Performed By: #### L [id number] ####[facility] ([facility])[address] [place] [address] Protein [Mass/Vol] 6.2 g/dL Normal 6.0-8.3 [facility] Comment on above: Performed By: #### L [id number] ####[facility] ([facility])[address] [place] [address] Sodium [Moles/Vol] 135 mmol/L Low 136-145 [facility] Comment on above: Performed By: #### L [id number] ####[facility] ([facility])[address] [place] [address] Urea nitrogen [Mass/Vol] 15 mg/dL Normal 7-25 [facility] Comment on above: Performed By: #### L [id number] ####[facility] ([facility])[address] [place] [address] UREA NITROGEN/CREATININE (MASS RATIO) IN SER/PLAS 17.9 Normal [facility] Comment on above: Performed By: #### L [id number] ####[facility] ([facility])[address] [place] [address] MAGNESIUMon 06-25-2023 Magnesium [Mass/Vol] 1.9 mg/dL Normal 1.9-2.7 [facility] Comment on above: Performed By: #### L [id number] ####[facility] ([facility])[address] [place] [address] MRSA/MSSA DNA NASALon 2023 MRSA DNA Negative Normal Negative [facility] Comment on above: Order Comment: Testi [...] preclude nasal colonization. Performed By: #### L [id number] ####[facility] ([employer])[address] [place] [address] MSSA DNA Negative Normal Negative [facility] Comment on above: Order Comment: Testi [...] preclude nasal colonization. Performed By: #### L [id number] ####[facility] ([employer])[address] [place] [address] PROTIME-INRon 06-25-2023 INR IN PPP BY COAGULATION ASSAY 1.02 Normal 0.90-1.10 [facility] Comment on above: Result Comment: ACCC [...] CHEST 1995;108:231S-246S. Performed By: #### L [id number] ####[facility] ([facility])[address] [place] [address] PROTHROMBIN TIME (PT) IN PPP BY COAGULATION ASSAY 13.4 Seconds Normal 12.3-14.8 [facility] Comment on above: Performed By: #### L [id number] ####[facility] ([facility])[address] [place] [address] TYPE AND SCREENon 06-25-2023 AB SCREEN Negative Normal [facility] Comment on above: Performed By: #### L [id number] ####[facility], ABO group Nom (Bld) A Normal [facility] Comment on above: Performed By: #### L [id number] ####[facility], RH TYPE IN BLOOD Negative [facility] Comment on above: Performed By: #### L [id number] ####[facility], URINALYSISon 06-25-2023 BILIRUBIN, TOTAL PRESENCE IN URINE Negative Normal Negative [facility] Comment on above: Performed By: #### L [id number] ####[facility] ([facility])[address] [place] [address] Clarity (U) Clear Normal Clear [facility] Comment on above: Performed By: #### L [id number] ####[facility] ([facility])[address] [place] [address] Color (U) Kylie Abnormal Yellow [facility] Comment on above: Performed By: #### L [id number] ####[facility] ([facility])[address] [place] [address] Glucose (U) [Mass/Vol] Negative Normal Negative [facility] Comment on above: Performed By: #### L [id number] ####[facility] ([facility])[address] [place] [address] HEMOGLOBIN PRESENCE IN URINE Negative Normal Negative [facility] Comment on above: Performed By: #### L [id number] ####[facility] ([facility])[address] [place] [address] Ketones Ql (U) Negative Normal Negative [facility] Comment on above: Performed By: #### L [id number] ####[facility] ([facility] [address] LEUKOCYTE ESTERASE PRESENCE IN URINE BY TEST STRIP Negative Normal Negative [facility] Comment on above: Performed By: #### L [id number] ####[facility] ([facility] [address] NITRITE PRESENCE IN URINE Negative Normal Negative [facility] Comment on above: Performed By: #### L [id number] ####[facility] ([facility])[address] [address] pH (U) 5.0 [pH] Normal 5.0-8.0 [facility] Comment on above: Performed By: #### L [id number] ####[facility] ([facility])[address] [address] Protein (U) [Mass/Vol] 100 mg/dL Abnormal Negative [facility] Comment on above: Performed By: #### L [id number] ####[facility] ([facility])[address] [address] Specific gravity (U) [Rel density] 1.033 High 1.015-1.020 [facility] Comment on above: Performed By: #### L [id number] ####[facility] ([facility] [place] [address] UROBILINOGEN (EU/DL) IN URINE 2.0 EU/dL Abnormal Negative [facility] Comment on above: Performed By: #### L [id number] ####[facility] (BEAKER)[address] [place] [address] URINALYSIS MICROSCOPICon CALCIUM OXALATE CRYSTALS (#/HPF) IN URINE Occasional Abnormal None Seen [facility] Comment on above: Performed By: #### L [id number] ####[facility] (BEAKER)[address] [place] [address] CASTS IN URINE Normal [facility] Comment on above: Performed By: #### L [id number] ####[facility] (BEAKER)[address] [place] [address] CRYSTALS IN URINE Present Abnormal None Seen [facility] Comment on above: Performed By: #### L [id number] ####[facility] (BEAKER)[address] [place] [address] MUCUS (#/HPF) IN URINE SEDIMENT Moderate Abnormal None Seen, Occasional, Few [facility] Comment on above: Performed By: #### L [id number] ####[facility] (BEAKER)[address] [place] [address] RBC (#/HPF) IN URINE SEDIMENT 3-5 Abnormal None Seen [facility] Comment on above: Performed By: #### L [id number] ####[facility] (BEAKER)[address] [place] [address] SQUAMOUS EPITHELIAL CELLS (#/HPF) IN URINE SEDIMENT Few Abnormal None Seen, Occasional [facility] Comment on above: Performed By: #### L [id number] ####[facility] [place] [address] WBC (LEUKOCYTE) (#/HPF) IN URINE SEDIMENT 0-2 Abnormal None Seen [facility] Comment on above: Performed By: #### L [id number] ####[facility] (BEAKER)[address] [place] [address] 30on 06-24-2023 30 Normal [facility] 30 Normal [facility] 30 Normal [facility] ANESon 06-24-2023 ANES Normal [facility] CBC WITH AUTO DIFFERENTIALon 06-24-2023 Basophils (Bld) [#/Vol] 0.03 10*3/uL Normal 0.00-0.20 [facility] Comment on above: Performed By: #### L [id number] ####[facility] (BEAKER)[address] [place] [address] Basophils/100 WBC (Bld) 0.4 % Normal 0.0-1.0 [facility] Comment on above: Performed By: #### L [id number] ####[facility] (BEAKER)[address] [place] [address] Eosinophils (Bld) [#/Vol] 0.57 10*3/uL High 0.00-0.50 [facility] Comment on above: Performed By: #### L [id number] ####[facility] ([facility])[address] [place] [address] Eosinophils/100 WBC (Bld) 7.7 % High 0.0-6.0 [facility] Comment on above: Performed By: #### L [id number] ####[facility] ([facility])[address] [place] [address] Erythrocyte distribution width (RBC) [Ratio] 16.3 % High 11.5-15.0 [facility] Comment on above: Performed By: #### L [id number] ####[facility] ([facility])[address] [place] [address] ERYTHROCYTE MEAN CORPUSCULAR HEMOGLOBIN CONCENTRATION (G/DL) BY AUTOMATED 33.1 g/dL Normal 32.0-35.0 [facility] Comment on above: Performed By: #### L [id number] ####[facility] ([facility])[address] [place] [address] Hematocrit (Bld) [Volume fraction] 35.3 % Low 39.0-55.0 [facility] Comment on above: Performed By: #### L [id number] ####[facility] ([facility]AKER)[address] [place] [address] Hemoglobin (Bld) [Mass/Vol] 11.7 g/dL Low 13.0-17.0 [facility] Comment on above: Performed By: #### L [id number] ####[facility] (BEAKER)[address] [place] [address] Immature granulocytes (Bld) [#/Vol] 0.03 10*3/uL Normal 0.00-0.20 [facility] Comment on above: Performed By: #### L [id number] ####[facility] (BEAKER)[address] [place] [address] Immature granulocytes/100 WBC (Bld) 0.4 % Normal 0.0-1.0 [facility] Comment on above: Performed By: #### L [id number] ####[facility] ([facility]AKER)[address] [place] [address] Lymphocytes (Bld) [#/Vol] 1.05 10*3/uL Low 1.20-4.00 [facility] Comment on above: Performed By: #### L [id number] ####[facility] ([facility]AKER)[address] [place] [address] Lymphocytes/100 WBC (Bld) 14.2 % Low 20.0-45.0 [facility] Comment on above: Performed By: #### L [id number] ####[facility] (BEAKER)[address] [place] [address] MCH (RBC) [Entitic mass] 29.3 pg Normal 27.0-33.0 [facility] Comment on above: Performed By: #### L [id number] ####[facility] (BEAKER)[address] [place] [address] MCV (RBC) [Entitic vol] 88.5 fL Normal 82.0-98.0 [facility] Comment on above: Performed By: #### L [id number] ####[facility] (BEAKER)[address] [place] [address] Monocytes (Bld) [#/Vol] 0.50 10*3/uL Normal 0.10-1.00 [facility] Comment on above: Performed By: #### L [id number] ####[facility] (BEAKER)[address] [place] [address] Monocytes/100 WBC (Bld) 6.8 % Normal 5.0-12.0 [facility] Comment on above: Performed By: #### L [id number] ####[facility] (BE[facility]ER)[address] [place] [address] Neutrophils (Bld) [#/Vol] 5.20 10*3/uL Normal 1.60-7.60 [facility] Comment on above: Performed By: #### L [id number] ####[facility] (BEAKER)[address] [place] [address] Neutrophils/100 WBC (Bld) 70.5 % Normal 40.0-72.0 [facility] Comment on above: Performed By: #### L [id number] ####[facility] [place] [address] NRBC (PER 100 WBCS) BY AUTOMATED COUNT 0.0 % Normal 0 [facility] Comment on above: Performed By: #### L [id number] ####[facility] [place] [address] PLATELETS (10*3/UL) IN BLOOD AUTOMATED COUNT 141 10*3/uL Low 150-400 [facility] Comment on above: Performed By: #### L [id number] ####[facility] [place] [address] RBC (Bld) [#/Vol] 3.99 10*6/uL Low 4.20-5.70 [facility] Comment on above: Performed By: #### L [id number] ####[facility] (BEAKER)[address] [place] [address] WBC (Bld) [#/Vol] 7.38 10*3/uL Normal 4.00-10.60 [facility] Comment on above: Performed By: #### L [id number] ####[facility] (BEAKER)[address] [place] [address] COMPREHENSIVE METABOLIC PANE Braulio 06-24-2023 Albumin [Mass/Vol] 4.1 g/dL Normal 3.5-5.7 [facility] Comment on above: Performed By: #### L [id number] ####[facility] (BEAKER)[address] [place] [address] ALP [Catalytic activity/Vol] 53 U/L Normal 34-104 [facility] Comment on above: Performed By: #### L [id number] ####[facility] [place] [address] ALT [Catalytic activity/Vol] 12 U/L Normal 7-52 [facility] Comment on above: Performed By: #### L [id number] ####[facility] ([facility])[address] [place] [address] Anion gap [Moles/Vol] 12 mmol/L Normal 7-20 [facility] Comment on above: Performed By: #### L [id number] ####[facility] ([facility])[address] [place] [address] AST [Catalytic activity/Vol] 11 U/L Low 13-39 [facility] Comment on above: Performed By: #### L [id number] ####[facility] ([facility])[address] [place] [address] Bilirubin [Mass/Vol] 0.9 mg/dL Normal 0.3-1.0 [facility] Comment on above: Performed By: #### L [id number] ####[facility] ([facility])[address] [place] [address] Calcium [Mass/Vol] 9.0 mg/dL Normal 8.6-10.3 [facility] Comment on above: Performed By: #### L [id number] ####[facility] ([facility])[address] [place] [address] Chloride [Moles/Vol] 100 mmol/L Normal 98-107 [facility] Comment on above: Performed By: #### L [id number] ####[facility] [place] [address] CO2 [Moles/Vol] 26 mmol/L Normal 21-31 [facility] Comment on above: Performed By: #### L [id number] ####[facility] ([facility] [place] [address] Creatinine [Mass/Vol] 0.84 mg/dL Normal 0.70-1.30 [facility] Comment on above: Performed By: #### L [id number] ####[facility] ([facility])[address] [place] [address] GLOMERULAR FILTRATION RATE ML/MIN/1.73 SQ M.PREDICTED 106.2 mL/min/1.73m*2 Normal >60.0 [facility] Comment on above: Result Comment: The [facility]???s estimated glomerular filtration rate (eGFR) will [...] of individuals. Performed By: #### L [id number] ####[facility] ([facility])[address] [place] [address] Glucose [Mass/Vol] 95 mg/dL Normal 70-100 [facility] Comment on above: Performed By: #### L [id number] ####[facility] ([facility])[address] [place] [address] Potassium [Moles/Vol] 3.9 mmol/L Normal 3.5-5.1 [facility] Comment on above: Performed By: #### L [id number] ####[facility] ([facility])[address] [place] [address] Protein [Mass/Vol] 6.5 g/dL Normal 6.0-8.3 [facility] Comment on above: Performed By: #### L [id number] ####[facility] ([facility])[address] [place] [address] Sodium [Moles/Vol] 134 mmol/L Low 136-145 [facility] Comment on above: Performed By: #### L [id number] ####[facility] [place] [address] Urea nitrogen [Mass/Vol] 12 mg/dL Normal 7-25 [facility] Comment on above: Performed By: #### L [id number] ####[facility] ([facility])[address] [place] [address] UREA NITROGEN/CREATININE (MASS RATIO) IN SER/PLAS 14.3 Normal [facility] Comment on above: Performed By: #### L [id number] ####[facility] ([facility])[address] [place] [address] Documentationon 06-24-2023 Documentation Normal [facility] HPon 06-24-2023 HP Normal [facility] MAGNESIUMon 06-24-2023 Magnesium [Mass/Vol] 1.9 mg/dL Normal 1.9-2.7 [facility] Comment on above: Performed By: #### L [id number] ####[facility] ([facility])[address] [place] [address] 30on 06-23-2023 30 Normal [facility] 30 Normal [facility] CBC WITH AUTO DIFFERENTIALon 06-23-2023 Basophils (Bld) [#/Vol] 0.04 10*3/uL Normal 0.00-0.20 [facility] Comment on above: Performed By: #### L [id number] ####[facility] ([facility])[address] [place] [address] Basophils/100 WBC (Bld) 0.5 % Normal 0.0-1.0 [facility] Comment on above: Performed By: #### L [id number] ####[facility] ([facility])[address] [place] [address] Eosinophils (Bld) [#/Vol] 0.56 10*3/uL High 0.00-0.50 [facility] Comment on above: Performed By: #### L [id number] ####[facility] ([facility] [place] [address] Eosinophils/100 WBC (Bld) 7.5 % High 0.0-6.0 [facility] Comment on above: Performed By: #### L [id number] ####[facility] (BEAKER)[address] [place] [address] Erythrocyte distribution width (RBC) [Ratio] 16.7 % High 11.5-15.0 [facility] Comment on above: Performed By: #### L [id number] ####[facility] ([facility]ER)[address] [place] [address] ERYTHROCYTE MEAN CORPUSCULAR HEMOGLOBIN CONCENTRATION (G/DL) BY AUTOMATED 33.2 g/dL Normal 32.0-35.0 [facility] Comment on above: Performed By: #### L [id number] ####[facility] ([facility]AKER)[address] [place] [address] Hematocrit (Bld) [Volume fraction] 34.9 % Low 39.0-55.0 [facility] Comment on above: Performed By: #### L [id number] ####[facility] (BEAKER)[address] [place] [address] Hemoglobin (Bld) [Mass/Vol] 11.6 g/dL Low 13.0-17.0 [facility] Comment on above: Performed By: #### L [id number] ####[facility] (BE[facility]ER)[address] [place] [address] Immature granulocytes (Bld) [#/Vol] 0.03 10*3/uL Normal 0.00-0.20 [facility] Comment on above: Performed By: #### L [id number] ####[facility] (BEAKER)[address] [place] [address] Immature granulocytes/100 WBC (Bld) 0.4 % Normal 0.0-1.0 [facility] Comment on above: Performed By: #### L [id number] ####[facility] ([facility]ER)[address] [place] [address] Lymphocytes (Bld) [#/Vol] 1.08 10*3/uL Low 1.20-4.00 [facility] Comment on above: Performed By: #### L [id number] ####[facility] ([facility] [place] [address] Lymphocytes/100 WBC (Bld) 14.5 % Low 20.0-45.0 [facility] Comment on above: Performed By: #### L [id number] ####[facility] ([facility])[address] [place] [address] MCH (RBC) [Entitic mass] 29.6 pg Normal 27.0-33.0 [facility] Comment on above: Performed By: #### L [id number] ####[facility] ([facility] [place] [address] MCV (RBC) [Entitic vol] 89.0 fL Normal 82.0-98.0 [facility] Comment on above: Performed By: #### L [id number] ####[facility] ([facility] [place] [address] Monocytes (Bld) [#/Vol] 0.50 10*3/uL Normal 0.10-1.00 [facility] Comment on above: Performed By: #### L [id number] ####[facility] ([facility] [place] [address] Monocytes/100 WBC (Bld) 6.7 % Normal 5.0-12.0 [facility] Comment on above: Performed By: #### L [id number] ####[facility] ([facility] [place] [address] Neutrophils (Bld) [#/Vol] 5.24 10*3/uL Normal 1.60-7.60 [facility] Comment on above: Performed By: #### L [id number] ####[facility] (BEAKER)[address] [place] [address] Neutrophils/100 WBC (Bld) 70.4 % Normal 40.0-72.0 [facility] Comment on above: Performed By: #### L [id number] ####[facility] ([facility])[address] [place] [address] NRBC (PER 100 WBCS) BY AUTOMATED COUNT 0.0 % Normal 0 [facility] Comment on above: Performed By: #### L [id number] ####[facility] ([facility])[address] [place] [address] PLATELETS (10*3/UL) IN BLOOD AUTOMATED COUNT 120 10*3/uL Low 150-400 [facility] Comment on above: Performed By: #### L [id number] ####[facility] ([facility])[address] [place] [address] RBC (Bld) [#/Vol] 3.92 10*6/uL Low 4.20-5.70 [facility] Comment on above: Performed By: #### L [id number] ####[facility] ([facility])[address] [place] [address] WBC (Bld) [#/Vol] 7.45 10*3/uL Normal 4.00-10.60 [facility] Comment on above: Performed By: #### L [id number] ####[facility] ([facility])[address] [place] [address] COMPREHENSIVE METABOLIC PANE Braulio 06-23-2023 Albumin [Mass/Vol] 4.1 g/dL Normal 3.5-5.7 [facility] Comment on above: Performed By: #### L [id number] ####[facility] ([facility])[address] [place] [address] ALP [Catalytic activity/Vol] 52 U/L Normal 34-104 [facility] Comment on above: Performed By: #### L [id number] ####[facility] ([facility])[address] [place] [address] ALT [Catalytic activity/Vol] 12 U/L Normal 7-52 [facility] Comment on above: Performed By: #### L [id number] ####[facility] (BEAKER)[address] [place] [address] Anion gap [Moles/Vol] 9 mmol/L Normal 7-20 [facility] Comment on above: Performed By: #### L [id number] ####[facility] (BEAKER)[address] [place] [address] AST [Catalytic activity/Vol] 9 U/L Low 13-39 [facility] Comment on above: Performed By: #### L [id number] ####[facility] [place] [address] Bilirubin [Mass/Vol] 1.0 mg/dL Normal 0.3-1.0 [facility] Comment on above: Performed By: #### L [id number] ####[facility] (BEAKER)[address] [place] [address] Calcium [Mass/Vol] 8.7 mg/dL Normal 8.6-10.3 [facility] Comment on above: Performed By: #### L [id number] ####[facility] ([facility] [place] [address] Chloride [Moles/Vol] 101 mmol/L Normal 98-107 [facility] Comment on above: Performed By: #### L [id number] ####[facility] ([facility]AKER)[address] [place] [address] CO2 [Moles/Vol] 27 mmol/L Normal 21-31 [facility] Comment on above: Performed By: #### L [id number] ####[facility] (BE[facility]ER)[address] [place] [address] Creatinine [Mass/Vol] 0.77 mg/dL Normal 0.70-1.30 [facility] Comment on above: Performed By: #### L [id number] ####[facility] ([facility]ER)[address] [place] [address] GLOMERULAR FILTRATION RATE ML/MIN/1.73 SQ M.PREDICTED 109.1 mL/min/1.73m*2 Normal >60.0 [facility] Comment on above: Result Comment: The [facility]???s estimated glomerular filtration rate (eGFR) will [...] of individuals. Performed By: #### L [id number] ####[facility] (BE[facility]ER)[address] [place] [address] Glucose [Mass/Vol] 106 mg/dL High 70-100 [facility] Comment on above: Performed By: #### L [id number] ####[facility] ([facility]ER)[address] [place] [address] Potassium [Moles/Vol] 4.1 mmol/L Normal 3.5-5.1 [facility] Comment on above: Performed By: #### L [id number] ####[facility] (BE[facility]ER)[address] [place] [address] Protein [Mass/Vol] 6.2 g/dL Normal 6.0-8.3 [facility] Comment on above: Performed By: #### L [id number] ####[facility] (BE[facility]ER)[address] [place] [address] Sodium [Moles/Vol] 133 mmol/L Low 136-145 [facility] Comment on above: Performed By: #### L [id number] ####[facility] (BEAKER)[address] [place] [address] Urea nitrogen [Mass/Vol] 13 mg/dL Normal 7-25 [facility] Comment on above: Performed By: #### L [id number] ####[facility] (BEAKER)[address] [place] [address] UREA NITROGEN/CREATININE (MASS RATIO) IN SER/PLAS 16.9 Normal [facility] Comment on above: Performed By: #### L [id number] ####[facility] ([facility])[address] [place] [address] CONSULTon 06-23-2023 CONSULT Normal [facility] 30on 06-22-2023 30 Normal [facility] 30 Normal [facility] APTTon 06-22-2023 ACTIVATED PARTIAL THROMBOPLASTIN TIME IN PPP BY COAGULATION ASSAY 31.2 Seconds Normal 25.0-35.0 [facility] Comment on above: Result Comment: Clin ical significance of the APTT is questionable in the presence of heparin. Performed By: #### L [id number] ####[facility] ([facility])[address] [place] [address] CBC WITH AUTO DIFFERENTIALon 06-22-2023 Basophils (Bld) [#/Vol] 0.03 10*3/uL Normal 0.00-0.20 [facility] Comment on above: Performed By: #### L [id number] ####[facility] ([facility])[address] [place] [address] Basophils/100 WBC (Bld) 0.4 % Normal 0.0-1.0 [facility] Comment on above: Performed By: #### L [id number] ####[facility] ([facility])[address] [place] [address] Eosinophils (Bld) [#/Vol] 0.39 10*3/uL Normal 0.00-0.50 [facility] Comment on above: Performed By: #### L [id number] ####[facility] ([facility])[address] [place] [address] Eosinophils/100 WBC (Bld) 5.0 % Normal 0.0-6.0 [facility] Comment on above: Performed By: #### L [id number] ####[facility] ([facility])[address] [place] [address] Erythrocyte distribution width (RBC) [Ratio] 16.3 % High 11.5-15.0 [facility] Comment on above: Performed By: #### L [id number] ####[facility] [place] [address] ERYTHROCYTE MEAN CORPUSCULAR HEMOGLOBIN CONCENTRATION (G/DL) BY AUTOMATED 33.1 g/dL Normal 32.0-35.0 [facility] Comment on above: Performed By: #### L [id number] ####[facility] ([facility])[address] [place] [address] Hematocrit (Bld) [Volume fraction] 35.6 % Low 39.0-55.0 [facility] Comment on above: Performed By: #### L [id number] ####[facility] ([facility])[address] [place] [address] Hemoglobin (Bld) [Mass/Vol] 11.8 g/dL Low 13.0-17.0 [facility] Comment on above: Performed By: #### L [id number] ####[facility] [place] [address] Immature granulocytes (Bld) [#/Vol] 0.02 10*3/uL Normal 0.00-0.20 [facility] Comment on above: Performed By: #### L [id number] ####[facility] (BEAKER)[address] [place] [address] Immature granulocytes/100 WBC (Bld) 0.3 % Normal 0.0-1.0 [facility] Comment on above: Performed By: #### L [id number] ####[facility] ([facility]ER)[address] [place] [address] Lymphocytes (Bld) [#/Vol] 0.72 10*3/uL Low 1.20-4.00 [facility] Comment on above: Performed By: #### L [id number] ####[facility] (BE[facility]ER)[address] [place] [address] Lymphocytes/100 WBC (Bld) 9.2 % Low 20.0-45.0 [facility] Comment on above: Performed By: #### L [id number] ####[facility] (BEAKER)[address] [place] [address] MCH (RBC) [Entitic mass] 29.0 pg Normal 27.0-33.0 [facility] Comment on above: Performed By: #### L [id number] ####[facility] (BEAKER)[address] [place] [address] MCV (RBC) [Entitic vol] 87.5 fL Normal 82.0-98.0 [facility] Comment on above: Performed By: #### L [id number] ####[facility] (BEAKER)[address] [place] [address] Monocytes (Bld) [#/Vol] 0.41 10*3/uL Normal 0.10-1.00 [facility] Comment on above: Performed By: #### L [id number] ####[facility] (BEAKER)[address] [place] [address] Monocytes/100 WBC (Bld) 5.2 % Normal 5.0-12.0 [facility] Comment on above: Performed By: #### L [id number] ####[facility] (BEAKER)[address] [place] [address] Neutrophils (Bld) [#/Vol] 6.24 10*3/uL Normal 1.60-7.60 [facility] Comment on above: Performed By: #### L [id number] ####[facility] (BEAKER)[address] [place] [address] Neutrophils/100 WBC (Bld) 79.9 % High 40.0-72.0 [facility] Comment on above: Performed By: #### L [id number] ####[facility] (BE[facility]ER)[address] [place] [address] NRBC (PER 100 WBCS) BY AUTOMATED COUNT 0.0 % Normal 0 [facility] Comment on above: Performed By: #### L [id number] ####[facility] ([facility]ER)[address] [place] [address] PLATELETS (10*3/UL) IN BLOOD AUTOMATED COUNT 110 10*3/uL Low 150-400 [facility] Comment on above: Performed By: #### L [id number] ####[facility] ([facility])[address] [address] RBC (Bld) [#/Vol] 4.07 10*6/uL Low 4.20-5.70 [facility] Comment on above: Performed By: #### L [id number] ####[facility] ([facility])[address] [address] WBC (Bld) [#/Vol] 7.81 10*3/uL Normal 4.00-10.60 [facility] Comment on above: Performed By: #### L [id number] ####[facility] ([facility])[address] [address] CKon 06-22-2023 CREATINE KINASE (U/L) IN SER/PLAS 22.0 U/L Low 30.0-223.0 [facility] Comment on above: Performed By: #### L [id number] ####[facility] ([facility])[address] [place] [address] COMPREHENSIVE METABOLIC PANE Braulio 06-22-2023 Albumin [Mass/Vol] 4.0 g/dL Normal 3.5-5.7 [facility] Comment on above: Performed By: #### L [id number] ####[facility] ([facility])[address] [place] [address] ALP [Catalytic activity/Vol] 52 U/L Normal 34-104 [facility] Comment on above: Performed By: #### L [id number] ####[facility] ([facility])[address] [place], [place] [address] ALT [Catalytic activity/Vol] 13 U/L Normal 7-52 [facility] Comment on above: Performed By: #### L [id number] ####[facility] ([facility])[address] [place] [address] Anion gap [Moles/Vol] 12 mmol/L Normal 7-20 [facility] Comment on above: Performed By: #### L [id number] ####[facility] ([facility])[address] [place] [address] AST [Catalytic activity/Vol] 9 U/L Low 13-39 [facility] Comment on above: Performed By: #### L [id number] ####[facility] ([facility])[address] [place] [address] Bilirubin [Mass/Vol] 1.1 mg/dL High 0.3-1.0 [facility] Comment on above: Performed By: #### L [id number] ####[facility] ([facility])[address] [place] [address] Calcium [Mass/Vol] 9.1 mg/dL Normal 8.6-10.3 [facility] Comment on above: Performed By: #### L [id number] ####[facility] ([facility])[address] [place] [address] Chloride [Moles/Vol] 100 mmol/L Normal 98-107 [facility] Comment on above: Performed By: #### L [id number] ####[facility] ([facility])[address] [place] [address] CO2 [Moles/Vol] 26 mmol/L Normal 21-31 [facility] Comment on above: Performed By: #### L [id number] ####[facility] ([facility])[address] [place] [address] Creatinine [Mass/Vol] 0.82 mg/dL Normal 0.70-1.30 [facility] Comment on above: Performed By: #### L [id number] ####[facility] ([facility])[address] [place] [address] GLOMERULAR FILTRATION RATE ML/MIN/1.73 SQ M.PREDICTED 107.0 mL/min/1.73m*2 Normal >60.0 [facility] Comment on above: Result Comment: The [facility]???s estimated glomerular filtration rate (eGFR) will [...] of individuals. Performed By: #### L [id number] ####[facility] ([facility])[address] [place] [address] Glucose [Mass/Vol] 161 mg/dL High 70-100 [facility] Comment on above: Performed By: #### L [id number] ####[facility] ([facility])[address] [place] [address] Potassium [Moles/Vol] 4.0 mmol/L Normal 3.5-5.1 [facility] Comment on above: Performed By: #### L [id number] ####[facility] ([facility])[address] [place] [address] Protein [Mass/Vol] 6.3 g/dL Normal 6.0-8.3 [facility] Comment on above: Performed By: #### L [id number] ####[facility] [place] [address] Sodium [Moles/Vol] 134 mmol/L Low 136-145 [facility] Comment on above: Performed By: #### L [id number] ####[facility] [place] [address] Urea nitrogen [Mass/Vol] 14 mg/dL Normal 7-25 [facility] Comment on above: Performed By: #### L [id number] ####[facility] ([facility])[address] [place] [address] UREA NITROGEN/CREATININE (MASS RATIO) IN SER/PLAS 17.1 Normal [facility] Comment on above: Performed By: #### L [id number] ####[facility] ([facility])[address] [place] [address] CONSULTon 06-22-2023 CONSULT Normal [facility] MAGNESIUMon 06-22-2023 Magnesium [Mass/Vol] 1.8 mg/dL Low 1.9-2.7 [facility] Comment on above: Performed By: #### L [id number] ####[facility] ([facility])[address] [place] [address] PROTIME-INRon 06-22-2023 INR IN PPP BY COAGULATION ASSAY 1.05 Normal 0.90-1.10 [facility] Comment on above: Result Comment: ACCC [...] CHEST [id number]. Performed By: #### L [id number] ####[facility] ([facility])[address] [place] [address] PROTHROMBIN TIME (PT) IN PPP BY COAGULATION ASSAY 13.7 Seconds Normal 12.3-14.8 [facility] Comment on above: Performed By: #### L [id number] ####[facility] ([facility])[address] [place] [address] 30on 06-21-2023 30 Normal [facility] 30 Normal [facility] 30 The patient is Moder ately Unstable - Medium risk of patient condition declining or worsening The patient's goals for the shift include COMFORT The clinical goals for the shift include VSS Normal [facility] 30 Normal [facility] ANESon 06-21-2023 ANES Normal [facility] B-TYPE NATRIURETIC PEPTIDEon 06-21-2023 Natriuretic peptide B (Bld) [Mass/Vol] 147 pg/mL High 0-100 [facility] Comment on above: Performed By: #### L [id number] ####[facility] ([facility])[address] [place] [address] BLOOD CULTUREon 06-21-2023 Bacteria identified Cx Nom (Bld) No growth at [address] [facility] Comment on above: Order Comment: From a different site than #1. Performed By: #### L [id number] ####[facility] ([facility])[address] [place] [address] C-REACTIVE PROTEINon 024 C REACTIVE PROTEIN (MG/L) IN SER/PLAS 23.3 mg/L High 0.0-7.0 [facility] Comment on above: Performed By: #### L [id number] ####[facility] ([facility] [place] [address] CBC WITH AUTO DIFFERENTIALon 06-21-2023 Basophils (Bld) [#/Vol] 0.04 10*3/uL Normal 0.00-0.20 [facility] Comment on above: Performed By: #### L [id number] ####[facility] ([facility])[address] [place] [address] Basophils/100 WBC (Bld) 0.4 % Normal 0.0-1.0 [facility] Comment on above: Performed By: #### L [id number] ####[facility] ([facility] [place] [address] Eosinophils (Bld) [#/Vol] 0.24 10*3/uL Normal 0.00-0.50 [facility] Comment on above: Performed By: #### L [id number] ####[facility] ([facility])[address] [place] [address] Eosinophils/100 WBC (Bld) 2.7 % Normal 0.0-6.0 [facility] Comment on above: Performed By: #### L [id number] ####[facility] ([facility])[address] [place] [address] Erythrocyte distribution width (RBC) [Ratio] 16.2 % High 11.5-15.0 [facility] Comment on above: Performed By: #### L [id number] ####[facility] ([facility])[address] [place] [address] ERYTHROCYTE MEAN CORPUSCULAR HEMOGLOBIN CONCENTRATION (G/DL) BY AUTOMATED 33.1 g/dL Normal 32.0-35.0 [facility] Comment on above: Performed By: #### L [id number] ####[facility] ([facility])[address] [place] [address] Hematocrit (Bld) [Volume fraction] 35.6 % Low 39.0-55.0 [facility] Comment on above: Performed By: #### L [id number] ####[facility] ([facility] [place] [address] Hemoglobin (Bld) [Mass/Vol] 11.8 g/dL Low 13.0-17.0 [facility] Comment on above: Performed By: #### L [id number] ####[facility] [place] [address] Immature granulocytes (Bld) [#/Vol] 0.03 10*3/uL Normal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 Added by Discern Expert. Performed By: #### 2 741662, 2520195, 0576398 #### [facility] [address] [place] [address] Neutrophils/100 WBC (Bld) 67.8 % Normal 36.0-75.0 [facility] Comment on above: Order Comment: Order Added by Discern Expert. Performed By: #### 2 944508, 0774475, 3428828 #### [facility] [address] [place] [address] Neutrophils/Leukocyt es Auto (Bld) [Pure # fraction] 4.8 E9/L Normal 2.0-7.5 [facility] Comment on above: Order Comment: Order Added by Discern Expert. Performed By: #### 2 054723, 9721589, 6450222 #### [facility] [address] [place] [address] CBC w/ Auto Diffon 3 Erythrocyte distribution width (RBC) [Ratio] 13.1 % Normal 10.9-14.2 [facility] Comment on above: Performed By: #### 2 409714, 5864036, 8286959 #### [facility] [address] [place] [address] Hematocrit (Bld) [Volume fraction] 39.2 % Normal 37.7-49.0 [facility] Comment on above: Performed By: #### 2 334214, 3160008, 7959818 #### [facility] [address] [place] [address] Hemoglobin (Bld) [Mass/Vol] 13.4 g/dL Low 13.5-17.5 [facility] Comment on above: Performed By: #### 2 839017, 9211580, 7360368 #### [facility] [address] [place] [address] 07[address] MCH (RBC) [Entitic mass] 29.0 pg Normal 27.0-34.0 [facility] Comment on above: Performed By: #### 2 205541, 9821629, 3562285 #### [facility] [address] [place] [address] MCHC (RBC) [Mass/Vol] 34.3 g/dL Normal 31.4-36.0 [facility] Comment on above: Performed By: #### 2 923519, 9563899, 5636614 #### [facility] [address] [place] [address] 22902 MCV (RBC) [Entitic vol] 84.6 fL Normal 80.0-100.0 [facility] Comment on above: Performed By: #### 2 677755, 8090107, 2642763 #### [facility] [address] [place] [address] Platelet mean volume (Bld) [Entitic vol] 7.7 fL Normal 6.4-10.8 [facility] Comment on above: Performed By: #### 2 478466, 6968045, 5512855 #### [facility] [address] [place] [address] Platelets (Bld) [#/Vol] 261.0 E9/L Normal 150.0-500.0 [facility] Comment on above: Performed By: #### 2 354672, 8196259, 4049296 #### [facility] [address] [place] [address] 74231 RBC (Bld) [#/Vol] 4.6 E12/L Normal 4.3-5.9 [facility] Comment on above: Performed By: #### 2 937773, 6518508, 5230840 #### [facility] [address] [place] [address] 98[address] WBC corrected for nucl RBC Auto (Bld) [#/Vol] 7.1 E9/L Normal 4.0-11.0 [facility] Comment on above: Performed By: #### 2 453379, 6203287, 6041020 #### [facility] [address] [place] [address] CHEMISTRYOrdered By: SYSTEM SYSTEM on 03-07-2023 CRP [Mass/Vol] 1.8 mg/dL Normal <=1.9mg/dL [facility] Remis ol CRPon 03-07-2023 CRP [Mass/Vol] 1.8 mg/dL Normal <=1.9 [facility] Comment on above: Performed By: #### 2 464251, 0851975, 3086086 #### [facility] [address] [place] [address] Consent for Treatmenton Consent for Treatment [id number]#1.00TIFF Normal [facility] Erythrocyte Sedimentation Ra aniya 03-07-2023 ESR (Bld) [Velocity] 9 mm/h Normal 0-19 [facility] Comment on above: Result Comment: PERF ORMED BY: [place] [address] PATHOLOGIST APPLICATIONS TESTER BARI GREENE M.D. Performed By: #### E SR #### [address] Erythrocyte sedimentation ra te by Photometric methodOrdered By: Huan Cowan on 03-07-2023 ESR Photometric method (Bld) [Velocity] 9 mm/hr 0-19 [facility] HEMATOLOGYOrdered By: SYSTEM SYSTEM on 03-07-2023 Basophils/100 WBC (Bld) 0.7 % Normal 0.0 - 2.0 % [facility]eAuto[facility] Basophils/Leukocytes Auto (Bld) [Pure # fraction] 0.1 E9/L Normal 0.0 - 0.2 E9/L [facility] HemeAutoSS Eosinophils/100 WBC (Bld) 2.6 % Normal 0.0 - 8.0 % [facility]eAutoSS Eosinophils/Leukocyt es Auto (Bld) [Pure # fraction] 0.2 E9/L Normal 0.0 - 0.5 E9/L [facility]eAuto[facility] Lymphocytes/100 WBC (Bld) 18.6 % Normal 14.0 - 50.0 % [facility]eAutoSS Lymphocytes/Leukocyt es Auto (Bld) [Pure # fraction] 1.3 E9/L Normal 1.0 - 4.0 E9/L [facility] HemeAutoSS Monocytes/100 WBC (Bld) 10.3 % Normal 4.0 - 14.0 % [facility] Monocytes/Leukocytes Auto (Bld) [Pure # fraction] 0.7 E9/L Normal 0.2 - 1.0 E9/L [facility] Neutrophils/100 WBC (Bld) 67.8 % Normal 36.0 - 75.0 % [facility]eAuto[facility] Neutrophils/Leukocyt es Auto (Bld) [Pure # fraction] 4.8 E9/L Normal 2.0 - 7.5 E9/L [facility] HEMATOLOGYOrdered By: Juanita Chen on 03-07-2023 Erythrocyte distribution width (RBC) [Ratio] 13.1 % Normal 10.9 - 14.2 % [facility] Hematocrit (Bld) [Volume fraction] 39.2 % [...] E9/L Normal 4.0 - 11.0 E9/L [facility] Lab Miscellaneous-LCon 03-07 Test Code 109617 Invalid Interpretation Code [facility] Comment on above: Performed By: #### 1 [id number] #### [facility] [address] [place] [address] Test Code [facility] Invalid Interpretation Code [facility] Comment on above: Performed By: #### 1 [id number] #### [facility] [address] [place] [address] Test Name [place] [address] [facility] Comment on above: Performed By: #### 1 [id number] #### [facility] [address] [place] [address] Test Name SED RATE/FIREAL Invalid Interpretation Code [facility] Comment on above: Performed By: #### 1 [id number] #### [facility] [address] [place] [address] Physician Orderon 03-07-2023 Physician Order [id number]#1.00TIFF Normal [facility] Reference Laboratory Testing Ordered By: Yasmeen Ca on 03-07-2023 Sodium [Moles/Vol] 670665 mmol/L Invalid Interpretation Code [facility] SendOutsSS Test Code TO [facility] Invalid Interpretation Code [facility] SendOutsSS Test Name SED RATE/FIREAL Invalid Interpretation Code [facility] SendOutsSS Test Name [place] 6 Invalid Interpretation Code [facility] SendOutsSS Operative Reporton Operative Report [id number]#1.00TIFF Normal [facility] Formson 02-27-2023 Forms [id number]#1.00TIFF Normal [facility] Provider Letteron 02-27-2023 Provider Letter (Inserted Image. Jessica ble to display) [address] [place] [address] February 27, 2023 NEHAL BAIG [address] [place] [address] : [address] Mazariegos, The above patient has been evaluated at your request for preoperative clearance. After assessment of available pertinent labs and diagnostic tests, I feel this patient is medically optimized for surgery. Final discretion of whether the patient is cleared for surgery remains up to the surgeon/anesthesiologist. Thank you, Vonnie Guerrero, SEED COLLECTOR-C Normal [facility] Auto Diffon 02-26-2023 Basophils/100 WBC (Bld) 0.6 % Normal 0.0-2.0 [facility] Comment on above: Order Comment: Order Added by Discern Expert. Performed By: #### 2 480677, 4833250 ####[facility] [address] [place] [address] Basophils/Leukocytes Auto (Bld) [Pure # fraction] 0.1 E9/L Normal 0.0-0.2 [facility] Comment on above: Order Comment: Order Added by Wilbert Expert. Performed By: #### 2 773419, 5866957 ####[address] [address] Eosinophils/100 WBC (Bld) 2.3 % Normal 0.0-8.0 [facility] Comment on above: Order Comment: Order Added by Wilbert Expert. Performed By: #### 2 120234, 9375815 ####[address] [address] Eosinophils/Leukocyt es Auto (Bld) [Pure # fraction] 0.2 E9/L Normal 0.0-0.5 [facility] Comment on above: Order Comment: Order Added by Discern Expert. Performed By: #### 2 497160, 2582714 ####[address] [address] Lymphocytes/100 WBC (Bld) 16.2 % Normal 14.0-50.0 [facility] Comment on above: Order Comment: Order Added by Wilbert Expert. Performed By: #### 2 681499, 5714908 ####[address] [address] Lymphocytes/Leukocyt es Auto (Bld) [Pure # fraction] 1.5 E9/L Normal 1.0-4.0 [facility] Comment on above: Order Comment: Order Added by Discern Expert. Performed By: #### 2 214391, 9258519 ####[address] [address] Monocytes/100 WBC (Bld) 6.8 % Normal 4.0-14.0 [facility] Comment on above: Order Comment: Order Added by Discern Expert. Performed By: #### 2 203551, 0039606 ####[address] [address] Monocytes/Leukocytes Auto (Bld) [Pure # fraction] 0.6 E9/L Normal 0.2-1.0 [facility] Comment on above: Order Comment: Order Added by Discern Expert. Performed By: #### 2 335861, 5240652 ####[address] [address] Neutrophils/100 WBC (Bld) 74.1 % Normal 36.0-75.0 [facility] Comment on above: Order Comment: Order Added by Discern Expert. Performed By: #### 2 537148, 4576466 ####[address] [address] Neutrophils/Leukocyt es Auto (Bld) [Pure # fraction] 6.6 E9/L Normal 2.0-7.5 [facility] Comment on above: Order Comment: Order Added by Discern Expert. Performed By: #### 2 730556, 4645570 ####[address] [address] CBC w/ Auto Diffon 3 Erythrocyte distribution width (RBC) [Ratio] 13.6 % Normal 10.9-14.2 [facility] Comment on above: Performed By: #### 2 868722, 7948065 ####[address] [address] Hematocrit (Bld) [Volume fraction] 40.5 % Normal 37.7-49.0 [facility] Comment on above: Performed By: #### 2 595065, 3917433 ####[address] [place] [address] Hemoglobin (Bld) [Mass/Vol] 13.9 g/dL Normal 13.5-17.5 [facility] Comment on above: Performed By: #### 2 232350, 4801316 ####[address] [address] MCH (RBC) [Entitic mass] 28.9 pg Normal 27.0-34.0 [facility] Comment on above: Performed By: #### 2 880365, 6112078 ####[address] [address] MCHC (RBC) [Mass/Vol] 34.3 g/dL Normal 31.4-36.0 [facility] Comment on above: Performed By: #### 2 623758, 7648575 ####[address] [address] MCV (RBC) [Entitic vol] 84.2 fL Normal 80.0-100.0 [facility] Comment on above: Performed By: #### 2 532964, 3768064 ####[address] [address] Platelet mean volume (Bld) [Entitic vol] 7.7 fL Normal 6.4-10.8 [facility] Comment on above: Performed By: #### 2 619123, 2035816 ####[address] [address] Platelets (Bld) [#/Vol] 244.0 E9/L Normal 150.0-500.0 [facility] Comment on above: Performed By: #### 2 238704, 9188653 ####[address] [address] RBC (Bld) [#/Vol] 4.8 E12/L Normal 4.3-5.9 [facility] Comment on above: Performed By: #### 2 423570, 8026625 ####[address] [place] [address] WBC corrected for nucl RBC Auto (Bld) [#/Vol] 8.9 E9/L Normal 4.0-11.0 [facility] Comment on above: Performed By: #### 2 691051, 7447122 ####[facility] [address] [place] [address] Consent for Treatmenton 01-31 Consent for Treatment [id number]#1.00TIFF Normal [facility] HEMATOLOGYOrdered By: SYSTEM SYSTEM on 02-26-2023 [...] E9/L Normal 4.0 - 11.0 E9/L [facility] Physician Orderon 02-26-2023 Physician Order [id number]#1.00TIFF Normal [facility] CHEMISTRYOrdered By: SYSTEM SYSTEM on 02-25-2023 CRP [Mass/Vol] 6.7 mg/dL High <=1.9mg/dL [facility] Remis ol CRPon 02-25-2023 CRP [Mass/Vol] 6.7 mg/dL High <=1.9 [facility] Comment on above: Performed By: #### 2 119666 ####[facility] [address] [place] [address] Consent for Treatmenton 01-31 Consent for Treatment [id number]#1.00TIFF Normal [facility] ED Note-Physicianon 02-26-20 ED Note-Physician [id number]#1.00TIFF Normal [facility] Lab Miscellaneous-LCon 02-25 Test Code 916665 Invalid Interpretation Code [facility] Comment on above: Performed By: #### 1 [id number] ####[facility] [address] [place] [address] Test Name Interleukin-[address] [facility] Comment on above: Performed By: #### 1 [id number] ####[facility] [address] [place] [address] Physician Orderon 02-25-2023 Physician Order [id number]#1.00TIFF Normal [facility] RAD - MISCon 02-25-2023 RAD - MISC [id number]#1.00TIFF Normal [facility] Reference Laboratory Testing Ordered By: Elysia Oseguera on 02-25-2023 Sodium [Moles/Vol] 486142 mmol/L Invalid Interpretation Code [facility] Test Name Interleukin-6 Invalid Interpretation Code [facility] SendOutsSS Consultation Noteon 02-20-20 Consultation Note [id number]#1.00TIFF Normal [facility] Operative Reporton 3 Operative Report [id number]#1.00TIFF Normal [facility] Consultation Noteon 01-30-20 Consultation Note [id number]#1.00TIFF Normal [facility] RAD - MRI Reporton 3 RAD - MRI Report [id number]#1.00TIFF Normal [facility] XR cerv spine AP/LAT/FLX/EXT on 01-17-2023 XR cerv spine AP/LAT/FLX/EXT [facility] [address] [place] [address] XRay Report Signed Patient: Nehal Baig MR#: [id number] 8 : 1970 Acct:[id number] Age/Sex: 52 / M ADM Date: 01/17/23 Loc: XD Room: Type: REG CLI Attending Dr: Siri Quezada VENETIAN BLIND TAPE CUTTER-C Copies to: HAIDER Sewell Ordering Provider: HAIDER [...] Khadijah Roach M.D.01/17/2023 4:22 PM Dictation Location: [place] [address] Transcribed By: [facility] 01/17/23 1622 Dictated By: Khadijah Roach MD 01/17/23 162 Signed By: 01/17/23 162 Normal [facility] XR lumbar spine 6V w bending on 01-17-2023 XR lumbar spine 6V w bending [facility] Main [address] [address] XRay Report Signed Patient: Nehal Baig MR#: [id number] 8 : 1970 Acct:[id number] Age/Sex: 52 / M ADM Date: 01/17/23 Loc: XD Room: Type: REG CLI Attending Dr: Siri Quezada VENETIAN BLIND TAPE CUTTER-C Copies to: HAIDER Sewell Ordering Provider: HAIDER [...] Christopher Cedeno M.D.01/17/2023 12:51 PM Dictation Location: [place] [address] Transcribed By: [facility] 01/17/23 1251 Dictated By: Christopher Cedeno DO 01/17/23 1246 Signed By: 01/17/23 1251 Normal [facility] RAD - MISCon 01-16-2023 RAD - MISC [id number]#1.00TIFF Normal [facility] RAD - MISC [id number]#1.00TIFF Normal [facility] Lab Reportson 01-14-2023 Lab Reports [id number]#1.00TIFF Normal [facility] Lab Reports [id number]#1.00TIFF Normal [facility] Retail - Clinical Noteon Retail - Clinical Note [id number]#1.00TIFF Normal [facility] Ambulatory Visit Summaryon 1 Ambulatory Visit [...] Depression Obesity shoulder pain sleep disorder Normal [facility] XR ankle LT min 3V*on 2022 XR ankle LT min 3V* [facility] Silver Curve Other XR ankle LT min 3V* [facility] Silver Cur[employer] Other XR ankle LT min 3V* [address] [place] [address] [place] Other XR ankle LT min 3V* [place] [address] [employer] Other XR ankle LT min 3V* XRay Report Nort [place] Other XR ankle LT min 3V* Signed [place] Other XR ankle LT min 3V* Patient: Nehal Baig MR#: [id number] [place] Other XR ankle LT min 3V* 8 [employer] Other XR ankle LT min 3V* : 1970 Acct:[id number] [place] Other XR ankle LT min 3V* Age/Sex: 52 / M ADM Date: 12/16/22 [place] Other XR ankle LT min 3V* Loc: XDUCLY Room: pe: [facility] Silver Curve Other XR ankle LT min 3V* Attending Dr: Kelly MALONEY [place] Other XR ankle LT min 3V* Copies to: HAIDER Larson [place] [employer] Other XR ankle LT min 3V* Ordering Provider: HAIDER Rehman [employer] Other XR ankle LT min 3V* Date of Service: 12/16/22 [place] Other XR ankle LT min 3V* 74447) XR/XR ankle LT min 3V*: LEFT ANKLE PAIN [employer] [place] Other XR ankle LT min 3V* XR ankle LT min 3V* 12/16/2022 10:31 AM [place] Other XR ankle LT min 3V* SIGNS AND SYMPTOMS: Pain and swelling of the posterior left ankle [place] Other XR ankle LT min 3V* PROTOCOL: Frontal, lateral, and oblique radiographs of the left ankle [place] Other XR ankle LT min 3V* COMPARISON: None [place] Other XR ankle LT min 3V* FINDINGS: [place] Other XR ankle LT min 3V* The ankle mortise is preserved. There is no evidence of fracture or dislocation. There is Achilles [place] Other XR ankle LT min 3V* surface calcaneal spurring. There is soft tissue swelling diffusely which is nonspecific. [place] Other XR ankle LT min 3V* X R/XR ankle LT min 3V* [place] Other XR ankle LT min 3V* IMPRESSION: Nort [place] Other XR ankle LT min 3V* No fracture. Nor [place] Other XR ankle LT min 3V* Diffuse soft tissue swelling. Silver Cur[place] Other XR ankle LT min 3V* There is Achilles castano rface calcaneal spurring. Silver Cur[employer] Other XR ankle LT min 3V* Impression dictated by: Nehal Horner M.D.12/16/2022 10:42 AM [place] Other XR ankle LT min 3V* Dictation Location: [facility] Silver Cur[place] Other XR ankle LT min 3V* Transcribed By: MARLO 12/16/22 1042 [place] Cur[place] Other XR ankle LT min 3V* Dictated By: Nehal Horner II, MD 12/16/221041 [place] Other XR ankle LT min 3V* Signed By: Silver Curve Other XR ankle LT min 3V* 12/16/22 1042 No rt [place] Other XR ankle LT min 3V* [facility] [place] [address] XRay Report Signed Patient: Nehal Baig MR#: [id number] 8 : 1970 Acct:[id number] Age/Sex: 52 / M ADM Date: 12/16/22 Loc: XDUCLY Room: Type: [facility] Attending Dr: Kelly MALONEY Copies to: HAIDER [...] Nehal Horner M.D.12/16/2022 10:42 AM Dictation Location: [place] [address] Transcribed By: [facility] 12/16/22 104 Dictated By: Nehal Horner II, MD 12/16/22 104 Signed By: 12/16/22 1042 Normal [facility] Ramez 05-28-2022 [facility] Telephone (PENDING SALE TO [facility]) -- NEHAL BAIG ([id number]) 1970 Date Time Provider Department 05/28/22 SALOME AGUILLON PENDING SALE TO [facility] During your visit today, we recorded the following information about you: Salome Aguillon APRN.FRAMEMAN 05/28/2022 11:57 AM Signed Please call patient [...] [R80.9] Order(s):PROTEIN CREATININE RATIO [SQPRATIO] Order #: [id number] FUTURE Prescriptions as of 05/29/2022 - atorvastatin [...] Status:Closed by VIVEK RICO on 05/28/22 Normal [facility] US KIDNEY/BLADDERon 05-26-19 US KIDNEY/BLADDER * * *Final Report* * * DATE OF EXAM: May 26 2022 2:34PM [facility] 1055 - US KIDNEY/BLADDER [...] No evidence of renal calculus or hydronephrosis. Loss Prevention Representative: GREGORY Transcribe Date/Time: May 26 2022 2:43P Dictated by : BOB RODRIGUEZ MD This examination was interpreted and the report reviewed and electronically signed by: BOB RODRIGUEZ MD on May 27 2022 5:50AM EST [id number] [facility] CNOVon 05-21-2022 CNOV Office Visit ([facility] ) -- NEHAL BAIG ([id number]) 1970 M Date Time Provider Department 05/21/22 5:20 PM SALOME AGUILLON PENDING SALE TO [facility] During your visit today, we recorded the following information about you: Pulse Blood pressure Weight Height 89/minute 133/67 180.5 kg 1.854 m Salome Aguillon APRN.FRAMEMAN 05/21/2022 6:45 PM Addendum This note was [...] 2020. This is a workers comp issue-through [facility] ortho/Dr. Cowan. 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 Shoulder replacement surgery left 08/23/24. 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 ENDO/WT: -needs f/up endo wt managmeent Dr. 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 Man/Agustina-endo wt management team [phone] Will review at upcoming appointment. Protein noted in urine. Vitamin D is low at 30.7-recommend inrj-pjw-jztqlze vitamin D3 1000 units daily. Cholesterol is elevated, worsening when compared to prior-we will discuss increasing cholesterol medication. Kidney, liver, electrolytes look fine. Thyroid lab looks fine. PSA/prostate lab looks fine. A1c is stable at 5.4. Blood count looks fine. Written by Salome Aguillon APRN.FRAMEMAN on 05/21/2022 3:44 PM EST Last 2 [...] Negative Ketones, Urine Negative Trace (A) Specific Curt[place], Ur 1.005 - 1.030 >=1.030 (H) Hemoglobin/Blood,Ur [...] content not included)... Normal [facility] 25(OH)D3 [facility] 2022 25-hydroxyvitamin D3 [Mass/Vol] 30.7 ng/mL Low 31.0-80.0 [facility] Comment on above: Order Comment: Speci men Type: BLOOD SPECIMEN Ordering Facility: [facility] Address: [address] [place] [phone] Result Comment: Clas sification of 25 [place] Vitamin D status: Deficiency/Insufficiency: < or = 30 ng/ml. Sufficiency/Optimal Levels: 31-80 ng/mL Toxicity: > 100 ng/mL. Test performed by chemiluminescent immunoassay. Performed By: #### 1 989-3 #### [facility] CLIA [id number] [address] [place] [address] [place] CBC panel Auto (Bld)on 05-19 Erythrocyte distribution width (RBC) [Ratio] 12.9 % Normal 11.5-15.0 [facility] Comment on above: Order Comment: Speci men Type: URINE SPECIMEN Ordering Facility: [facility] Address: [address] [phone] Performed By: #### L [id number] #### [place] [facility] CLIA [id number] [address] [place] [address] [place] Hematocrit (Bld) [Volume fraction] 42.7 % Normal 39.0-51.0 [facility] Comment on above: Order Comment: Speci men Type: URINE SPECIMEN Ordering Facility: [facility] Address: [address] [place] [address] Performed By: #### L [id number] #### [facility]T [facility] CLIA [id number] [address] [place] [address] [facility] Hemoglobin (Bld) [Mass/Vol] 14.5 g/dL Normal 13.0-17.0 [facility] Comment on above: Order Comment: Speci men Type: URINE SPECIMEN Ordering Facility: [facility] Address: [address] [place] [address] Performed By: #### L [id number] #### [facility]Raheem [facility] CLIA [id number] [address] [place] [address] [place] MCH (RBC) [Entitic mass] 29.2 pg Normal 26.0-34.0 [facility] Comment on above: Order Comment: Speci men Type: URINE SPECIMEN Ordering Facility: [facility] Address: [address] [place] [address] Performed By: #### L [id number] #### [facility]Raheem [facility] CLIA [id number] [address] [place] [address] [place] [facility] MCHC (RBC) [Mass/Vol] 34.0 g/dL Normal 30.5-36.0 [facility] Comment on above: Order Comment: Speci men Type: URINE SPECIMEN Ordering Facility: [facility] Address: [address] [place] [address] Performed By: #### L [id number] #### [facility]Raheem [facility] CLIA [id number] [address] [place] [address] [place] [facility] MCV (RBC) [Entitic vol] 85.9 fL Normal 80.0-100.0 [facility] Comment on above: Order Comment: Speci men Type: URINE SPECIMEN Ordering Facility: [facility] Address: [address] [place] [address] Performed By: #### L [id number] #### [facility]T [facility] CLIA [id number] [address] [place] [address] [facility] Nucleated RBC (Bld) [#/Vol] 10*3/uL Normal <0.01 [facility] Comment on above: Order Comment: Speci men Type: URINE SPECIMEN Ordering Facility: [facility] Address: [address] [place], [place] [address] Performed By: #### L [id number] #### [facility]Raheem [facility] CLIA [id number] [address] [place] [address] [place] Platelet mean volume (Bld) [Entitic vol] 10.2 fL Normal 9.0-12.7 [facility] Comment on above: Order Comment: Speci men Type: URINE SPECIMEN Ordering Facility: [facility] Address: [address] [place] [address] Performed By: #### L [id number] #### [facility])Raheem [facility] CLIA [id number] [address] [place] [address] [place] Platelets (Bld) [#/Vol] 189 10*3/uL Normal 150-400 [facility] Comment on above: Order Comment: Speci men Type: URINE SPECIMEN Ordering Facility: [facility] Address: [address] [place] [address] Performed By: #### L [id number] #### [facility])Raheem [facility] CLIA [id number] [address] [place] [address] [place] RBC (Bld) [#/Vol] 4.97 10*6/uL Normal 4.20-6.00 [facility] Comment on above: Order Comment: Speci men Type: URINE SPECIMEN Ordering Facility: [facility] Address: [address] [place], [place] [address] Performed By: #### L [id number] #### [facility]T [facility] CLIA [id number] [address] [place] [address] [place] WBC (Bld) [#/Vol] 5.26 10*3/uL Normal 3.70-11.00 [facility] Comment on above: Order Comment: Speci men Type: URINE SPECIMEN Ordering Facility: [facility] Address: [address] [place], [place] [address] Performed By: #### L [id number] #### [place] [facility] CLIA [id number] [address] [place] [address] [facility] Comprehensive metabolic 2000 panelon 05-19-2022 Albumin [Mass/Vol] 4.4 g/dL Normal 3.9-4.9 [facility] Comment on above: Order Comment: Speci men Type: BLOOD SPECIMENOrdering Facility: [facility] Address: [address] [place] [address] Performed By: #### 2 4323-8, 43734-2 ####[facility] LABCLIA [id number] [place] [address] [place] ALP [Catalytic activity/Vol] 83 U/L Normal 38-113 [facility] Comment on above: Order Comment: Speci men Type: BLOOD SPECIMENOrdering Facility: [facility] Address: [address] [place] [address] Performed By: #### 2 4323-8, 05099-6 ####[facility]CLIA [id number] [address] [place] ALT [Catalytic activity/Vol] 45 U/L Normal 10-54 [facility] Comment on above: Order Comment: Speci men Type: BLOOD SPECIMENOrdering Facility: [facility] Address: [address] [place] [address] Performed By: #### 2 4323-8, 97418-2 ####[facility] LABCLIA [id number] [place] [address] [place] Anion gap [Moles/Vol] 10 mmol/L Normal 9-18 [facility] Comment on above: Order Comment: Speci men Type: BLOOD SPECIMENOrdering Facility: [facility] Address: [address] [address] Performed By: #### 2 4323-8, 11135-4 ####[facility] LABCLIA [id number] [place] [address] [place] AST [Catalytic activity/Vol] 31 U/L Normal 14-40 [facility] Comment on above: Order Comment: Speci men Type: BLOOD SPECIMENOrdering Facility: [facility] Address: [address] [place] [address] Performed By: #### 2 4323-8, 65508-0 ####AMHKHRIST [facility] LABCLIA [id number] [place] [address] [place] Bilirubin [Mass/Vol] 0.6 mg/dL Normal 0.2-1.3 [facility] Comment on above: Order Comment: Speci men Type: BLOOD SPECIMENOrdering Facility: [facility] Address: [address] [place] [address] Performed By: #### 2 4323-8, 65164-6 ####[facility] LABCLIA [id number] [place] [address] [place] Calcium [Mass/Vol] 9.5 mg/dL Normal 8.5-10.2 [facility] Comment on above: Order Comment: Speci men Type: BLOOD SPECIMENOrdering Facility: [facility] Address: [address] [place] [address] Performed By: #### 2 4323-8, ####[facility] LABCLIA [id number] [place] [address] [place] Chloride [Moles/Vol] 103 mmol/L Normal 97-105 [facility] Comment on above: Order Comment: Speci men Type: BLOOD SPECIMENOrdering Facility: [facility] Address: [address] [place] [address] Performed By: #### 2 4323-8, 57023-8 ####AMHERSRaheem [facility] LABCLIA [id number] [place] [address] [place] CO2 [Moles/Vol] 26 mmol/L Normal 22-30 [facility] Comment on above: Order Comment: Speci men Type: BLOOD SPECIMENOrdering Facility: [facility] Address: [address] [facility] Performed By: #### 2 4323-8, 41006-0 ####[facility] LABIA [id number] [place] [address] [place] [facility] Creatinine [Mass/Vol] 0.98 mg/dL Normal 0.73-1.22 [facility] Comment on above: Order Comment: Speci men Type: BLOOD SPECIMENOrdering Facility: [facility] Address: [address] [place] [address] Performed By: #### 2 4323-8, 37421-3 ####[facility] LABIA [id number] [place] [address] [facility] ESTIMATED GLOMERULAR FILTRATION RATE 95 mL/min/1.73m??? Normal >=60 [facility] Comment on above: Order Comment: Speci men Type: BLOOD SPECIMENOrdering Facility: [facility] Address: [address] [place] [place] [address] Result Comment: Halle mated Glomerular Filtration Rate [...] actual GFR. Performed By: #### 2 4323-8, 87850-2 ####[facility]IA [id number] [place] [address] [place] Glucose [Mass/Vol] 203 mg/dL High 74-99 [facility] Comment on above: Order Comment: Speci men Type: BLOOD SPECIMENOrdering Facility: [facility] Address: [address] [facility] [place] [address] Result Comment: The [place] Diabetes Association (ADA) provides guidance for cutoff [...] Standards of Medical Care in Diabetes 2016, [place] Diabetes Association. Diabetes Care. 2016.39(Suppl 1). Performed By: #### 2 4323-8, 17425-9 ####[facility] LABIA [id number] [place] [address] [place] Potassium [Moles/Vol] 4.6 mmol/L Normal 3.7-5.1 [facility] Comment on above: Order Comment: Speci men Type: BLOOD SPECIMENOrdering Facility: [facility] Address: [address] [place] [address] Performed By: #### 2 43238, 68845-0 ####[facility] LABIA [id number] [place] [address] [place] Protein [Mass/Vol] 7.4 g/dL Normal 6.3-8.0 [facility] Comment on above: Order Comment: Speci men Type: BLOOD SPECIMENOrdering Facility: [facility] Address: [address] [place] [address] Performed By: #### 2 4323-8, ####[facility] LABIA [id number] [place] [address] [place] Sodium [Moles/Vol] 139 mmol/L Normal 136-144 [facility] Comment on above: Order Comment: Speci men Type: BLOOD SPECIMENOrdering Facility: [facility] Address: [address] [address] Performed By: #### 2 4323-8, 06966-1 ####[facility] LABCLIA [id number] [place] [address] [place] Urea nitrogen [Mass/Vol] 17 mg/dL Normal 9-24 [facility] Comment on above: Order Comment: Speci men Type: BLOOD SPECIMENOrdering Facility: [facility] Address: [address] [address] Performed By: #### 2 4323-8, 92690-6 ####[facility] [facility] LABCLIA [id number] [address] HbA1c (Bld)on 05-19-2022 Average glucose Estimated from glycated hemoglobin (Bld) [Mass/Vol] 108 mg/dL Normal [facility] Comment on above: Order Comment: Speci men Type: URINE SPECIMEN Ordering Facility: [facility] Address: [address] [place] [address] Result Comment: eAG: (Estimated average glucose) is a calculated value from HgbA1c and is metals sales representative of the average blood glucose level in the last 2-3 month period. Performed By: #### L [id number] #### [place] [facility] CLIA [id number] [address] [place] [address] HbA1c (Bld) [Mass fraction] 5.4 % Normal 4.3-5.6 [facility] Comment on above: Order Comment: Speci men Type: URINE SPECIMEN Ordering Facility: [facility] Address: [address] [address] Result Comment: [place] Diabetes Association guidelines indicate that patients with HgbA1c in the range 5.7-6.4% are at increased risk for development of diabetes, and intervention by lifestyle modification may be beneficial. HgbA1c greater or equal to 6.5% is considered diagnostic of diabetes. Performed By: #### L [id number] #### [facility] CLIA [id number] [address] [place] [address] [place] [facility] Lipid 1996 panelon 3 Cholesterol [Mass/Vol] 219 mg/dL High <200 [facility] Comment on above: Order Comment: Speci men Type: BLOOD SPECIMENOrdering Facility: [facility] Address: [address] [address] Result Comment: <200 mg/dL, Desirable 200-239 mg/dL, Borderline high >239 mg/dL, High Performed By: #### 2 4323-8, 26925-2 ####[facility] LABIA [id number] [place] [address] [facility] Cholesterol in HDL [Mass/Vol] 38 mg/dL Low >39 [facility] Comment on above: Order Comment: Speci men Type: BLOOD SPECIMENOrdering Facility: [facility] Address: [address] [place] [address] Result Comment: 40-5 9 mg/dL, Acceptable >59 mg/dL, High: Negative risk factor for coronary heart disease <40 mg/dL, Low: Positive risk factor for coronary heart disease Performed By: #### 2 4323-8, 22457-3 ####[facility] LABIA [id number] [place] [address] [facility] Cholesterol in LDL [Mass/Vol] 149 mg/dL High <100 [facility] Comment on above: Order Comment: [facility] Type: BLOOD SPECIMENOrdering Facility: [facility] Address: [address] [place] [address] Result Comment: <100 mg/dL, Optimal 100-129 mg/dL, Near optimal/above optimal 130-159 mg/dL, Borderline high 160-189 mg/dL, High >189 mg/dL, Very high Secondary prevention optimal LDL Cholesterol levels are recommended to be < 70 mg/dL Performed By: #### 2 4323-8, 72346-9 ####[facility] LABIA [id number] [address] [id number] [facility] Cholesterol in LDL/Cholesterol in HDL [Mass ratio] 3.92 {ratio} High <2.54 [facility] Comment on above: Order Comment: Tessa flores Type: BLOOD SPECIMENOrdering Facility: [facility] Address: [address] [place] [address] Result Comment: Refe rence: 1. National Cholesterol Education Program ATP III Guideline At-A-Glance Quick Desk Reference: National Heart, Lung, and Blood [place]. National Institutes of Health. 2001: NIH Publication No. 01-3305. 2. An International Atherosclerosis Society position paper: global recommendations for the management of dyslipidemia: executive summary, Atherosclerosis. 2014: 232(2):410-413. Performed By: #### 2 4323-8, 80891-2 ####[facility] LABCLIA [id number] [place] [address] [place] Cholesterol in VLDL [Mass/Vol] 32 mg/dL High <30 [facility] Comment on above: Order Comment: Speci men Type: BLOOD SPECIMENOrdering Facility: [facility] Address: [address] [address] Performed By: #### 2 4328, ####[facility] LABIA [id number] [address] Cholesterol non HDL [Mass/Vol] 181 mg/dL High <130 [facility] Comment on above: Order Comment: Selmai men Type: BLOOD SPECIMENOrdering Facility: [facility] Address: [address] [address] Result Comment: <130 mg/dL, Optimal 130-159 mg/dL, Near optimal/above optimal 160-189 mg/dL, Borderline high 190-219 mg/dL, High >219 mg/dL, Very high Secondary prevention optimal non HDL Cholesterol levels are recommended to be <100 mg/dL Performed By: #### 2 4323-8, 76226-3 ####[facility] LABIA [id number] [address] [place] [facility] Cholesterol.total/Ch olesterol in HDL [Mass ratio] 5.76 {ratio} High <5.10 [facility] Comment on above: Order Comment: Selmai men Type: BLOOD SPECIMENOrdering Facility: [facility] Address: [address] [address] Performed By: #### 2 4323-8, 05742-5 ####[facility]HERSRa[facility]em [facility] LABCLIA [id number] [place] [address] [place] FASTING TIME 10 hrs Normal [facility] Comment on above: Order Comment: Speci men Type: BLOOD SPECIMENOrdering Facility: [facility] Address: [address] [place] [address] Performed By: #### 2 4323-8, 09691-6 ####[facility] LABCLIA [id number] [place] [address] [place] Triglyceride [Mass/Vol] 161 mg/dL High <150 [facility] Comment on above: Order Comment: Speci men Type: BLOOD SPECIMENOrdering Facility: [facility] Address: [address] [address] Result Comment: <150 mg/dL, Normal 150-199 mg/dL, Borderline high 200-499 mg/dL, High >499 mg/dL, Very high Performed By: #### 2 4323-8, 45077-3 ####[facility] LABCLIA [id number] [place] [address] [place] PSA/PROSTSPECAG SCRNon 05-19 Prostate specific Ag [Mass/Vol] 0.56 ng/mL Normal <2.60 [facility] Comment on above: Order Comment: Speci men Type: BLOOD SPECIMENOrdering Facility: [facility] Address: [address] [place] [address] Result Comment: Tota l PSA test methodology used is the Electrochemiluminescence Immunoassay by [employer]. Total PSA values by differing methodologies cannot be interchanged. Performed By: #### P SAS1 ####[facility] LABCLIA [id number] [address] [place] TSH SerPl-aCncon 05-19-2022 TSH Qn 1.020 m[IU]/L Normal 0.270-4.200 [facility] Comment on above: Order Comment: Speci men Type: BLOOD SPECIMENOrdering Facility: [facility] Address: [address] [place] [address] Performed By: #### 3 016-3 ####[facility] LABCLIA [id number] [address] [facility] URINALYSIS, REFLEX MICROSCOP ICon 05-19-2022 Bilirubin Ql (U) Negative Normal Negative [facility] Comment on above: Order Comment: Speci men Type: URINE SPECIMEN Ordering Facility: [facility] Address: [address] [place] [address] Performed By: #### L [id number] #### [facility]T [facility] LAB CLIA [id number] [address] [place] [address] [place] Clarity (Unsp spec) Clear Normal Clear [facility] Comment on above: Order Comment: Speci men Type: URINE SPECIMEN Ordering Facility[facility] Address: [address] [place] [address] Performed By: #### L [id number] #### [facility])Ra[facility]em [facility] LAB CLIA [id number] [address] [place] [address] [facility] Color (U) Yellow Normal Yellow [facility] Comment on above: Order Comment: Speci men Type: URINE SPECIMEN Ordering [facility] Address: [address] [place] [address] Performed By: #### L [id number] #### [facility]Ra[facility]em [facility] LAB CLIA [id number] [address] [place] [address] Epithelial cells LM.HPF (Urine sed) [#/Area] Few Normal [facility] Comment on above: Order Comment: Speci men Type: URINE SPECIMEN Ordering [facility] Address: [address] [place] [address] Performed By: #### L [id number] #### [facility]T [facility] LAB CLIA [id number] [address] [place] [address] [place] Glucose Test strip (U) [Mass/Vol] Negative Normal Negative [facility] Comment on above: Order Comment: Speci men Type: URINE SPECIMEN Ordering Facility[facility] Address: [address] [place] [address] Performed By: #### L [id number] #### [facility] CLIA [id number] [address] [place] [address] [place] Hemoglobin Ql (U) Negative Normal Negative [facility] Comment on above: Order Comment: Speci men Type: URINE SPECIMEN Ordering Facility[facility] Address: [address] [place] [address] Performed By: #### L [id number] #### [facility] CLIA [id number] [address] [place] [address] [place] Ketones Ql (U) Trace Abnormal Negative [facility] Comment on above: Order Comment: Speci men Type: URINE SPECIMEN Ordering Facility[facility] Address: [address] [place] [address] Performed By: #### L [id number] #### [facility] LAB CLIA [id number] [address] [place] [address] [place] Leukocyte esterase Test strip Ql (U) Negative Normal Negative [facility] Comment on above: Order Comment: Speci men Type: URINE SPECIMEN Ordering Facility[facility] Address: [address] [place] [address] Performed By: #### L [id number] #### [facility] LAB CLIA [id number] [address] [place] [address] [place] Nitrite Ql (U) Negative Normal Negative [facility] Comment on above: Order Comment: Speci men Type: URINE SPECIMEN Ordering [facility] Address: [address] [place] [address] Performed By: #### L [id number] #### [facility]Raheem [facility] CLIA [id number] [address] [place] [address] [place] pH (U) 5.5 [pH] Normal 5.0-8.0 [facility] Comment on above: Order Comment: Speci men Type: URINE SPECIMEN [facility] Address: [address] [place] [address] Performed By: #### L [id number] #### [facility])Ra[facility]me [facility] CLIA [id number] [address] [place] [address] Protein (U) [Mass/Vol] 1+ Abnormal Negative [facility] Comment on above: Order Comment: Speci men Type: URINE SPECIMEN [facility]ing [facility] Address: [address] [place] [address] Performed By: #### L [id number] #### [facility]T [facility] CLIA [id number] [address] [place] [address] [facility] RBC LM.HPF (Urine sed) [#/Area] 0-3 /HPF Normal 0-3 /HPF [facility] Comment on above: Order Comment: Speci men Type: URINE SPECIMEN [facility] Address: [address] [place] [address] Performed By: #### L [id number] #### [facility] CLIA [id number] [address] [place] [address] Specific gravity (U) [Rel density] >=1.030 High 1.005-1.030 [facility] Comment on above: Order Comment: Speci men Type: URINE SPECIMEN [facility] Address: [address] [place] [address] Performed By: #### L [id number] #### [facility]T [facility] CLIA [id number] [address] [place] [address] Urobilinogen Ql (U) 0.2 EU/dL Normal 0.2-1.0 EU/dL [facility] Comment on above: Order Comment: Speci men Type: URINE SPECIMEN [facility] Address: [address] [place] [address] Performed By: #### L [id number] #### [facility]T [facility] CLIA [id number] [address] [place] [address] WBC LM.HPF (Urine sed) [#/Area] 0-5 /HPF Normal 0-5 /HPF [facility] Comment on above: Order Comment: Speci men Type: URINE SPECIMEN Ordering Facility: [facility] Address: [facility] [place] [address] Performed By: #### L [id number] #### [facility] CLIA [id number] [address] [place], [place] [address] [place] MRI CSPINE WO [...] KINGSLEY HERRERA Date: 2022-04-23 06:50 Normal [facility] XR FOREIGN BODY EYEon 2022 XR FOREIGN BODY EYE EXAMINATION: XR FORE IGN BODY EYE HISTORY: Foreign body in eye COMPARISON: No relevant comparison available. FINDINGS: ORBITS: Negative for a metallic foreign body. OTHER: Negative. IMPRESSION: 1. No metallic foreign body within the orbits. Electronically authenticated by: JAYY GIVENS Date: 2022-04-20 13:52 Normal [facility] CNOVon 02-15-2022 CNOV Office Visit (PENDING SALE TO [facility] ) -- NEHAL BAIG ([id number]) 1970 M Date Time Provider Department 02/15/22 2:20 PM SALOME AGUILLON During your visit today, we recorded the following information about you: Pulse Blood pressure Weight 72/minute 147/82 177.8 kg Salome Aguillon APRN.FRAMEMAN 02/15/2022 4:56 PM Signed Salome Aguillon APRN.LEODAN 02/15/2022 4:56 PM Signed This note was created using NoteWriter. Subjective Nehal Baig is a 51 year old male. CC: routine f/up Last seen: HPI ENDO/WT: -needs f/up endo wt managmeent Dr. 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 Man/Agustina-endo wt management team [phone] Has been off metformin 6 weeks + [...] 2020. This is a workers comp issue-through [facility] ortho/Dr. Cowan. 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 Shoulder replacement surgery left 08/23/24. 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 HM: -declines flu vaccine -declines covid [...] looks fine. Vitamin D is low-please begin gyei-ovp-vetieyv vitamin D3 2000 units daily. Urine asymptomatic. Component Latest Ref Rng AND Units 02/10/2022 Color Yellow Yellow Clarity Clear Clear Glucose, Urine Negative Negative Bilirubin, Urine Negative Negative Ketones, Urine Negative Negative Specific [place], Ur 1.005 - 1.030 1.037 (H) Hemoglobin/Blood,Ur [...] content not included)... Normal [facility] 25(OH)D3 [facility]tanya 2021 25-hydroxyvitamin D3 [Mass/Vol] 28.2 ng/mL Low 31.0-80.0 [facility] Comment on above: Order Comment: Speci men Type: BLOOD SPECIMENOrdering Facility: [facility] Address: [address] [place] [address] Result Comment: Clas sification of 25 [place] Vitamin D status: Deficiency/Insufficiency: < or = 30 ng/ml. Sufficiency/Optimal Levels: 31-80 ng/mL Toxicity: > 100 ng/mL. Test performed by chemiluminescent immunoassay. Performed By: #### 1 989-3 ####[facility] LABIA [id number] [address] [place] CBC panel Auto (Bld)on 02-10 Erythrocyte distribution width (RBC) [Ratio] 13.2 % Normal 11.5-15.0 [facility] Comment on above: Order Comment: Speci men Type: BLOOD SPECIMENOrdering Facility: [facility] Address: [address] [place] [address] Performed By: #### 5 8410-2 ####[facility] LABIA [id number] [address] [place] Hematocrit (Bld) [Volume fraction] 41.9 % Normal 39.0-51.0 [facility] Comment on above: Order Comment: Speci men Type: BLOOD SPECIMENOrdering Facility: [facility] Address: [address] [place] [address] Performed By: #### 5 8410-2 ####[facility] LABIA [id number] [address] [place] Hemoglobin (Bld) [Mass/Vol] 13.9 g/dL Normal 13.0-17.0 [facility] Comment on above: Order Comment: Speci men Type: BLOOD SPECIMENOrdering Facility: [facility] Address: [address] [place] [address] Performed By: #### 5 8410-2 ####[facility] LABIA [id number] [place] [address] [place] MCH (RBC) [Entitic mass] 29.0 pg Normal 26.0-34.0 [facility] Comment on above: Order Comment: Speci men Type: BLOOD SPECIMENOrdering Facility: [facility] Address: [address] [place] [address] Performed By: #### 5 8410-2 ####[facility] LABCLIA [id number] [address] [place] MCHC (RBC) [Mass/Vol] 33.2 g/dL Normal 30.5-36.0 [facility] Comment on above: Order Comment: Speci men Type: BLOOD SPECIMENOrdering Facility: [facility] Address: [address] [place] [address] Performed By: #### 5 8410-2 ####[facility] LABCLIA [id number] [place] [address] [place] MCV (RBC) [Entitic vol] 87.5 fL Normal 80.0-100.0 [facility] Comment on above: Order Comment: Speci men Type: BLOOD SPECIMENOrdering Facility: [facility] Address: [address] [place], [place] [address] Performed By: #### 5 8410-2 ####[facility] LABIA [id number] [place] [address] [place] Nucleated RBC (Bld) [#/Vol] 10*3/uL Normal <0.01 [facility] Comment on above: Order Comment: Speci men Type: BLOOD SPECIMENOrdering Facility: [facility] Address: [address] [place], [place] [address] Performed By: #### 5 8410-2 ####[facility] LABCLIA [id number] [place] [address] [place] Platelet mean volume (Bld) [Entitic vol] 10.6 fL Normal 9.0-12.7 [facility] Comment on above: Order Comment: Speci men Type: BLOOD SPECIMENOrdering Facility: [facility] Address: [address] [address] Performed By: #### 5 8410-2 ####[facility] LABCLIA [id number] [address] [facility] Platelets (Bld) [#/Vol] 198 10*3/uL Normal 150-400 [facility] Comment on above: Order Comment: Speci men Type: BLOOD SPECIMENOrdering Facility: [facility] Address: [address] [place] [address] Performed By: #### 5 8410-2 ####[facility] LABIA [id number] [address] STATES [facility] RBC (Bld) [#/Vol] 4.79 10*6/uL Normal 4.20-6.00 [facility] Comment on above: Order Comment: Speci men Type: BLOOD SPECIMENOrdering Facility: [facility] Address: [address] [place] [address] Performed By: #### 5 8410-2 ####[facility] LABIA [id number] [address] [facility] WBC (Bld) [#/Vol] 6.46 10*3/uL Normal 3.70-11.00 [facility] Comment on above: Order Comment: Speci men Type: BLOOD SPECIMENOrdering Facility: [facility] Address: [address] [place] [address] Performed By: #### 5 8410-2 ####[facility] LABIA [id number] [place] [address] [facility] [place] Comprehensive metabolic 2000 panelon 02-10-2022 Albumin [Mass/Vol] 4.5 g/dL Normal 3.9-4.9 [facility] Comment on above: Order Comment: Speci men Type: BLOOD SPECIMENOrdering Facility: [facility] Address: [address] [place] [address] Performed By: #### 3 016-3, 98600-2 ####[facility] LABCLIA [id number] [place] [address] [place]#### 16747-3 ####[facility] LABCLIA [id number] [address] OF [facility] LABORATORYCLIA [id number] [place] [address] [place] ALP [Catalytic activity/Vol] 85 U/L Normal 38-113 [facility] Comment on above: Order Comment: Speci men Type: BLOOD SPECIMENOrdering Facility: [facility] Address: [address] [place] [address] Performed By: #### 3 016-3, ####[facility] LABCLIA [id number] [address] [place]#### 76143-2 ####[facility] LABCLIA [id number] [address] STATES [facility] LABORATORYCLIA [id number] [place] [address] [place] ALT [Catalytic activity/Vol] 34 U/L Normal 10-54 [facility] Comment on above: Order Comment: Speci men Type: BLOOD SPECIMENOrdering Facility: [facility] Address: [address] [place] [address] Performed By: #### 3 016-3, 28085-4 ####[facility] LABCLIA [id number] [place] [address] [place]#### 25707-6 ####[facility] LABCLIA [id number] [address] [address] [place] [facility] LABORATORYCLIA [id number] [place] [address] [place] Anion gap [Moles/Vol] 10 mmol/L Normal 9-18 [facility] Comment on above: Order Comment: Speci men Type: BLOOD SPECIMENOrdering Facility: [facility] Address: [address] [place] [address] Performed By: #### 3 016-3, 76451-6 ####[facility] LABCLIA [id number] [place] [address] [place]#### 40468-7 ####[facility] LABCLIA [id number] [address] STATES OF [facility] LABORATORYCLIA [id number] [place] [address] [place] AST [Catalytic activity/Vol] 25 U/L Normal 14-40 [facility] Comment on above: Order Comment: Speci men Type: BLOOD SPECIMENOrdering Facility: [facility] Address: [address] [place] [address] Performed By: #### 3 016-3, ####[facility] LABCLIA [id number] [place] [address] [place]#### 93104-9 ####[facility] LABCLIA [id number] [address] STATES OF [facility] LABORATORYCLIA [id number] [place] [address] [place] Bilirubin [Mass/Vol] 0.4 mg/dL Normal 0.2-1.3 [facility] Comment on above: Order Comment: Speci men Type: BLOOD SPECIMENOrdering Facility: [facility] Address: [address] [place] [address] Performed By: #### 3 016-3, 47581-0 ####[facility] LABCLIA [id number] [place] [address] [place]#### 09245-5 ####[facility] LABCLIA [id number] [address] [place] LABORATORYCLIA [id number] [place] [address] [place] Calcium [Mass/Vol] 9.3 mg/dL Normal 8.5-10.2 [facility] Comment on above: Order Comment: Speci men Type: BLOOD SPECIMENOrdering Facility: [facility] Address: [address] [place] [address] Performed By: #### 3 016-3, 25748-5 ####[facility] LABCLIA [id number] [place] [address] [place]#### 89438-9 ####[facility] LABCLIA [id number] [address] LABORATORYCLIA [id number] [place] [address] [place] Chloride [Moles/Vol] 103 mmol/L Normal 97-105 [facility] Comment on above: Order Comment: Speci men Type: BLOOD SPECIMENOrdering Facility: [facility] Address: [address] [place] [address] Performed By: #### 3 016-3, 26634-5 ####[facility] LABCLIA [id number] [place] [address] [place]#### 08760-4 ####[facility] LABCLIA [id number] [address] STATES OF [facility] [place] LABORATORYCLIA [id number] [place] [address] [place] CO2 [Moles/Vol] 26 mmol/L Normal 22-30 [facility] Comment on above: Order Comment: Speci men Type: BLOOD SPECIMENOrdering Facility: [facility] Address: [address] [place], [place] [address] Performed By: #### 3 016-3, 83536-0 ####[facility] LABCLIA [id number] [address]#### 26134-3 ####[facility] LABCLIA [id number] [address] [place] LABORATORYCLIA [id number] [address] Creatinine [Mass/Vol] 0.90 mg/dL Normal 0.73-1.22 [facility] Comment on above: Order Comment: Speci men Type: BLOOD SPECIMENOrdering Facility: [facility] Address: [address] [place] [address] Performed By: #### 3 016-3, 59972-7 ####[facility] LABCLIA [id number] [address]#### 55334-1 ####[facility] LABCLIA [id number] [address] LABORATORYCLIA [id number] [address] ESTIMATED GLOMERULAR FILTRATION RATE 105 mL/min/1.73m??? Normal >=60 [facility] Comment on above: Order Comment: Specdallas men Type: BLOOD SPECIMENOrdering Facility: [facility] Address: [address] [place] [address] Result Comment: Halle mated Glomerular Filtration Rate [...] actual GFR. Performed By: ####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 07/31/21 Room / Location: [facility] Endoscopy Anesthesia Start: 1053 Anesthesia Stop: 1145 Procedure: COLONOSCOPY DIAGNOSTIC Diagnosis: Dark stools (OTHER) Scheduled Providers: Jayy Patel MD; Cori Ashley APRN.GREEN CHAIN OPERATOR; Lucy Flanagan MD Responsible Provider: Lucy [...] July 31, 2021 TIME: 12:55 PM CSN: [id number] Normal [facility] ANES PRE-OPon 07-31-2021 ANES PRE-OP HNO ID: [id number] Author: Lucy Flanagan MD Service: Anesthesiology Author Type: Anesthesiologist Type: Anesthesia Preprocedure Evaluation Filed: 07/31/2021 9:50 AM Note Text: ANESTHESIOLOGY DAY OF SURGERY NOTE : 1970 Procedure Information Date/Time: 07/31/21 1030 Scheduled providers: Jayy Patel MD; Cori Ashley APRN.GREEN CHAIN OPERATOR; Lucy Flanagan MD Procedure: COLONOSCOPY DIAGNOSTIC Location: [facility] Endoscopy Estimated body mass index is [...] ?F) 07/31/21 09 SpO2 96 % 07/31/21 0925 Outpatient Medications [...] July 31, 2021 TIME: 9:49 AM CSN: [id number] [facility] COLONOSCOPY DIAGNOSTICon [facility] HISTORY PHYSICALon HISTORY PHYSICAL HNO ID: [id number] Author: Jayy Patel MD Service: General Surgery [...] DATE: July 31, 2021 TIME: 10:58 AM [facility] SURGICAL PATHOLOGYon 022 CASE REPORT [facility] Comment on above: Order Comment: Speci men Type: TISSUE SPECIMEN Ordering Facility: [facility] Address: [address] [place] [address] Result Comment: Surg ica Pathology Report Case: [id number] Authorizing Provider: Jayy Patel MD Collected: 07/31/2021 11:31 AM Ordering Location: [facility]oscopy Received: 07/31/2021 02:15 PM Pathologist: Luis F Quiroz MD Specimen: SIGMOID COLON POLYP Performed By: #### S #### [facility] CLIA [id number] [address] [place] [address] FINAL DIAGNOSIS Normal [facility] Comment on above: Order Comment: Speci men Type: TISSUE SPECIMEN Ordering Facility: [facility] Address: [address] [place] [address] Result Comment: Sigm oid colon polyp, biopsy: - Tubular adenoma. JEL 08/01/2021 Performed By: #### S #### [facility] CLIA [id number] [address] [place] [address] FINAL PERFORMING LAB Normal [facility] Comment on above: Order Comment: Speci men Type: TISSUE SPECIMEN Ordering Facility: [facility] Address: [address] [place] [address] Result Comment: Diag nostic interpretation performed at [facility], [address] [place] [address] CLIA# [id number] Cotton Classer Aide: Nehal Cid M.D. Performed By: #### S #### [facility] CLIA [id number] [address] [place] [address] GROSS DESCRIPTION Normal [facility] Comment on above: Order Comment: Speci men Type: TISSUE SPECIMEN Ordering Facility: [facility] Address: [address] [place] [address] Result Comment: A. S IGMOID COLON POLYP. Received in formalin are multiple pieces of kaufman, soft tissue aggregating to 1.8 x 0.3 x 0.2 cm. Totally submitted in one cassette. SS July 31, 2021 7:11 PM Gross examination performed at [facility], [address] [place] [address] Performed By: #### S #### [facility] CLIA [id number] [address] [place] [address] [facility] CBC panel Auto (Bld)on 07-29 Erythrocyte distribution width (RBC) [Ratio] 12.5 % Normal 11.5-15.0 [facility] Comment on above: Order Comment: Speci men Type: URINE SPECIMEN Ordering Facility: [facility] Address: [address] [place] [address] Performed By: #### L [id number] #### [facility]Raheem [facility] CLIA [id number] [address] [place] [address] Hematocrit (Bld) [Volume fraction] 39.4 % Normal 39.0-51.0 [facility] Comment on above: Order Comment: Speci men Type: URINE SPECIMEN Ordering Facility: [facility] Address: [address] [place] [address] Performed By: #### L [id number] #### [facility]Raheem [facility] CLIA [id number] [address] [place] [address] Hemoglobin (Bld) [Mass/Vol] 13.6 g/dL Normal 13.0-17.0 [facility] Comment on above: Order Comment: Speci men Type: URINE SPECIMEN Ordering Facility: [facility] Address: [address] [place] [address] Performed By: #### L [id number] #### [facility])Raheem [facility] CLIA [id number] [address] [place] [address] [facility] MCH (RBC) [Entitic mass] 29.3 pg Normal 26.0-34.0 [facility] Comment on above: Order Comment: Speci men Type: URINE SPECIMEN Ordering Facility: [facility] Address: [address] [place] [address] Performed By: #### L [id number] #### [facility])T [facility] CLIA [id number] [address] [place] [address] [place] MCHC (RBC) [Mass/Vol] 34.5 g/dL Normal 30.5-36.0 [facility] Comment on above: Order Comment: Speci men Type: URINE SPECIMEN Ordering Facility: [facility] Address: [address] [place] [address] Performed By: #### L [id number] #### [facility] CLIA [id number] [address] [place] [address] [place] MCV (RBC) [Entitic vol] 84.9 fL Normal 80.0-100.0 [facility] Comment on above: Order Comment: Speci men Type: URINE SPECIMEN Ordering Facility: [facility] Address: [address] [place], [place] [address] Performed By: #### L [id number] #### [facility] CLIA [id number] [address] [place] [address] [place] Nucleated RBC (Bld) [#/Vol] 10*3/uL Normal <0.01 [facility] Comment on above: Order Comment: Speci men Type: URINE SPECIMEN Ordering Facility: [facility] Address: [address] [place], [place] [address] Performed By: #### L [id number] #### [facility] CLIA [id number] [address] [place] [address] [place] Platelet mean volume (Bld) [Entitic vol] 9.9 fL Normal 9.0-12.7 [facility] Comment on above: Order Comment: Speci men Type: URINE SPECIMEN Ordering Facility: [facility] Address: [address] [place], [place] [address] Performed By: #### L [id number] #### [facility]T [facility] CLIA [id number] [address] [place] [address] [place] Platelets (Bld) [#/Vol] 187 10*3/uL Normal 150-400 [facility] Comment on above: Order Comment: Speci men Type: URINE SPECIMEN Ordering Facility: [facility] Address: [address] [place], [place] [address] Performed By: #### L [id number] #### [facility] CLIA [id number] [address] [place] [address] [place] RBC (Bld) [#/Vol] 4.64 10*6/uL Normal 4.20-6.00 [facility] Comment on above: Order Comment: Speci men Type: URINE SPECIMEN Ordering Facility: [facility] Address: [address] [place] [address] Performed By: #### L [id number] #### [facility] CLIA [id number] [address] [place] [address] OF [facility] WBC (Bld) [#/Vol] 5.29 10*3/uL Normal 3.70-11.00 [facility] Comment on above: Order Comment: Speci men Type: URINE SPECIMEN Ordering Facility: [facility] Address: [address] [place] [address] Performed By: #### L [id number] #### [facility] CLIA [id number] [address] [place] [address] Comprehensive metabolic 2000 panelon 07-29-2021 Albumin [Mass/Vol] 4.6 g/dL Normal 3.9-4.9 [facility] Comment on above: Order Comment: Speci men Type: BLOOD SPECIMENOrdering Facility: [facility] Address: [address] [place] [address] Performed By: #### L KIERRAB, 55564-9 ####[facility] LABCLIA [id number] [place] [address] [place] ALP [Catalytic activity/Vol] 80 U/L Normal 38-113 [facility] Comment on above: Order Comment: Speci men Type: BLOOD SPECIMENOrdering Facility: [facility] Address: [address] [place] [address] Performed By: #### L IPB, 61343-8 ####[facility] LABCLIA [id number] [address] [place] ALT [Catalytic activity/Vol] 58 U/L High 10-54 [facility] Comment on above: Order Comment: Speci men Type: BLOOD SPECIMENOrdering Facility: [facility] Address: [address] [place], [place] [address] Performed By: #### L IPB, 75422-3 ####[facility] LABCLIA [id number] [place] [address] [place] Anion gap [Moles/Vol] 7 mmol/L Low 9-18 [facility] Comment on above: Order Comment: Speci men Type: BLOOD SPECIMENOrdering Facility: [facility] Address: [address] [place] [address] Performed By: #### L IPB, 70755-9 ####[facility] LABCLIA [id number] [place] [id number] [place] AST [Catalytic activity/Vol] 39 U/L Normal 14-40 [facility] Comment on above: Order Comment: Speci men Type: BLOOD SPECIMENOrdering Facility: [facility] Address: [address] [place] [address] Performed By: #### L IPB, 84188-0 ####[facility] LABCLIA [id number] [place] [id number] [place] Bilirubin [Mass/Vol] 0.4 mg/dL Normal 0.2-1.3 [facility] Comment on above: Order Comment: Speci men Type: BLOOD SPECIMENOrdering Facility: [facility] Address: [address] [place], [place] [address] Performed By: #### L IPB, 76182-0 ####[facility])Raheem [facility]CLIA [id number] [place] [address] [place] Calcium [Mass/Vol] 9.8 mg/dL Normal 8.5-10.2 [facility] Comment on above: Order Comment: Speci men Type: BLOOD SPECIMENOrdering Facility: [facility] Address: [address] [place], [place] [address] Performed By: #### L IPB, 86521-1 ####[facility] LABCLIA [id number] [place] [address] [place] Chloride [Moles/Vol] 104 mmol/L Normal 97-105 [facility] Comment on above: Order Comment: Speci men Type: BLOOD SPECIMENOrdering Facility: [facility] Address: [address] [place] [address] Performed By: #### L IPB, 48867-8 ####[facility] LABCLIA [id number] [place] [id number] [place] CO2 [Moles/Vol] 28 mmol/L Normal 22-30 [facility] Comment on above: Order Comment: Speci men Type: BLOOD SPECIMENOrdering Facility: [facility] Address: [address] [place] [address] Performed By: #### L IPB, 31829-4 ####[facility])Raheem [facility] LABCLIA [id number] [place] [id number] [place] Creatinine [Mass/Vol] 0.98 mg/dL Normal 0.73-1.22 [facility] Comment on above: Order Comment: Speci men Type: BLOOD SPECIMENOrdering Facility: [facility] Address: [address] [place] [address] Performed By: #### L IPB, 57098-9 ####[facility])Raheem [facility]IA [id number] [place] [id number] [facility] ESTIMATED GLOMERULAR FILTRATION RATE 95 mL/min/1.73m??? Normal >=60 [facility] Comment on above: Order Comment: Speci men Type: BLOOD SPECIMENOrdering Facility: [facility] Address: [address] [place] [address] Result Comment: Halle mated Glomerular Filtration Rate [...] actual GFR. Performed By: #### L KIERRAB, 34326-0 ####[facility])Ra[facility]em [facility]CLIA [id number] [place] [address] [place] Glucose [Mass/Vol] 120 mg/dL High 74-99 [facility] Comment on above: Order Comment: Speci men Type: BLOOD SPECIMENOrdering Facility: [facility] Address: [address] [place], [place] [address] Result Comment: The Micronesian Diabetes Association (ADA) provides guidance for cutoff [...] Standards of Medical Care in Diabetes 2016, [place] Diabetes Association. Diabetes Care. 2016.39(Suppl 1). Performed By: #### L KIERRAB, 39102-8 ####[facility] LABCLIA [id number] [place] [address] [place] Potassium [Moles/Vol] 4.7 mmol/L Normal 3.7-5.1 [facility] Comment on above: Order Comment: Speci men Type: BLOOD SPECIMENOrdering Facility: [facility] Address: [address] [place] [address] Performed By: #### L IPB, 23081-3 ####[facility])Ra[facility]em [facility]IA [id number] [place] [address] [place] Protein [Mass/Vol] 7.6 g/dL Normal 6.3-8.0 [facility] Comment on above: Order Comment: Speci men Type: BLOOD SPECIMENOrdering Facility: [facility] Address: [address] [place], [place] [address] Performed By: #### L IPB, 60426-1 ####[facility] LABCLIA [id number] [place] [address] [place] Sodium [Moles/Vol] 139 mmol/L Normal 136-144 [facility] Comment on above: Order Comment: Speci men Type: BLOOD SPECIMENOrdering Facility: [facility] Address: [address] [place] [address] Performed By: #### L IPB, 77364-8 ####[facility]CLIA [id number] [place] [id number] [place] Urea nitrogen [Mass/Vol] 18 mg/dL Normal 9-24 [facility] Comment on above: Order Comment: Speci men Type: BLOOD SPECIMENOrdering Facility: [facility] Address: [address] [place] [address] Performed By: #### L IPB, 14949-5 ####[facility])Ra[facility]em [facility]CLIA [id number] [place] [id number] [place] HGB A1Con 07-29-2021 Average glucose Estimated from glycated hemoglobin (Bld) [Mass/Vol] 117 mg/dL Normal [facility] Comment on above: Order Comment: Speci men Type: BLOOD SPECIMENOrdering Facility: [facility] Address: [address] [place] [address] Result Comment: eAG: (Estimated average glucose) is a calculated value from HgbA1c and is metals sales representative of the average blood glucose level in the last 2-3 month period. Performed By: #### H BA1C ####[facility]CLIA [id number] [address] [place] HbA1c (Bld) [Mass fraction] 5.7 % High 4.3-5.6 [facility] Comment on above: Order Comment: Speci men Type: BLOOD SPECIMENOrdering Facility: [facility] Address: [address] [place] [address] Result Comment: Amer [place] Diabetes Association guidelines indicate that patients with HgbA1c in the range 5.7-6.4% are at increased risk for development of diabetes, and intervention by lifestyle modification may be beneficial. HgbA1c greater or equal to 6.5% is considered diagnostic of diabetes. Performed By: #### H BA1C ####[facility] LABCLIA [id number] [place] [address] [facility] LIPID PANEL BASICon 07-30-19 22 Cholesterol [Mass/Vol] 240 mg/dL High <200 [facility] Comment on above: Order Comment: Tessa flores Type: BLOOD SPECIMENOrdering Facility: [facility] Address: [address] [place] [address] Result Comment: <200 mg/dL, Desirable 200-239 mg/dL, Borderline high >239 mg/dL, High Performed By: #### L KIERRAB, 77243-4 ####[facility]CLIA [id number] [address] [place] Cholesterol in HDL [Mass/Vol] 37 mg/dL Low >39 [facility] Comment on above: Order Comment: Tessa flores Type: BLOOD SPECIMENOrdering Facility: [facility] Address: [address] [place] [address] Result Comment: 40-5 9 mg/dL, Acceptable >59 mg/dL, High: Negative risk factor for coronary heart disease <40 mg/dL, Low: Positive risk factor for coronary heart disease Performed By: #### L KIERRAB, 29777-0 ####[facility]CLIA [id number] [address] [facility] Cholesterol in LDL [Mass/Vol] 175 mg/dL High <100 [facility] Comment on above: Order Comment: Tessa flores Type: BLOOD SPECIMENOrdering Facility: [facility] Address: [address] [place] [address] Result Comment: <100 mg/dL, Optimal 100-129 mg/dL, Near optimal/above optimal 130-159 mg/dL, Borderline high 160-189 mg/dL, High >189 mg/dL, Very high Secondary prevention optimal LDL Cholesterol levels are recommended to be < 70 mg/dL Performed By: #### L KIERRAB, 67785-5 ####[facility]CLIA [id number] [place] [address] [facility] Cholesterol in LDL/Cholesterol in HDL [Mass ratio] 4.73 {ratio} High <2.54 [facility] Comment on above: Order Comment: Tessa men Type: BLOOD SPECIMENOrdering Facility: [facility] Address: [address] [place] [address] Result Comment: Refe rence: 1. National Cholesterol Education Program ATP III Guideline At-A-Glance Quick Desk Reference: National Heart, Lung, and Blood [place]. National Institutes of Health. 2001: NIH Publication No. 01-3305. 2. An International Atherosclerosis Society position paper: global recommendations for the management of dyslipidemia: executive summary, Atherosclerosis. 2014: 232(2):410-413. Performed By: #### L FILIPE, 73887-5 ####[facility]CLIA [id number] [place] [id number] [place] Cholesterol in VLDL [Mass/Vol] 28 mg/dL Normal <30 [facility] Comment on above: Order Comment: Tessa flores Type: BLOOD SPECIMENOrdering Facility: [facility] Address: [address] [place] [address] Performed By: #### L FILIPE, 50316-4 ####[facility]CLIA [id number] [place] [address] [place] Cholesterol non HDL [Mass/Vol] 203 mg/dL High <130 [facility] Comment on above: Order Comment: Tessa sandra Type: BLOOD SPECIMENOrdering Facility: [facility] Address: [address] [place] [address] Result Comment: <130 mg/dL, Optimal 130-159 mg/dL, Near optimal/above optimal 160-189 mg/dL, Borderline high 190-219 mg/dL, High >219 mg/dL, Very high Secondary prevention optimal non HDL Cholesterol levels are recommended to be <100 mg/dL Performed By: #### L IPB, 50973-1 ####[facility]CLIA [id number] [place] [id number] [facility] Cholesterol.total/Ch olesterol in HDL [Mass ratio] 6.49 {ratio} High <5.10 [facility] Comment on above: Order Comment: Speci men Type: BLOOD SPECIMENOrdering Facility: [facility] Address: [address] [place] [address] Performed By: #### L FILIPE, 08078-1 ####[facility] LABCLIA [id number] [place] [id number] [facility] FASTING TIME 12. hrs Normal [facility] Comment on above: Order Comment: Speci men Type: BLOOD SPECIMENOrdering Facility: [facility] Address: [address] [place] [address] Performed By: #### Natalie DENT, 93461-2 ####[facility] LABIA [id number] [address] [place] Triglyceride [Mass/Vol] 140 mg/dL Normal <150 [facility] Comment on above: Order Comment: Speci men Type: BLOOD SPECIMENOrdering Facility: [facility] Address: [address] [place] [address] Result Comment: <150 mg/dL, Normal 150-199 mg/dL, Borderline high 200-499 mg/dL, High >499 mg/dL, Very high Performed By: #### L FILIPE, 18516-2 ####[facility])Raheem [facility] LABIA [id number] [place] [address] [place] PSA/PROSTSPECAG SCRNon 07-29 Prostate specific Ag [Mass/Vol] 0.41 ng/mL Normal <2.60 [facility] Comment on above: Order Comment: Speci men Type: BLOOD SPECIMENOrdering Facility: [facility] Address: [address] [place] [address] Result Comment: Tota l PSA test methodology used is the Electrochemiluminescence Immunoassay by [employer]. Total PSA values by differing methodologies cannot be interchanged. Performed By: #### P SAS1 ####[facility] LABCLIA [id number] 00 [place] [address] [place] TSH SerPl-aCncon 07-29-2021 TSH Qn 4.060 m[IU]/L Normal 0.270-4.200 [facility] Comment on above: Order Comment: Speci men Type: BLOOD SPECIMENOrdering Facility: [facility] Address: [address] [place] [address] Performed By: #### 3 016-3 ####[facility]IA [id number] [address] [place] URINALYSIS, REFLEX MICROSCOP ICon 07-29-2021 Bilirubin Ql (U) Negative Normal Negative [facility] Comment on above: Order Comment: Speci men Type: URINE SPECIMEN Ordering Facility: [facility] Address: [address] [place] [address] Performed By: #### L [id number] #### [facility]Raheem [facility] CLIA [id number] [address] [place] [address] [place] Clarity (Unsp spec) Clear Normal Clear [facility] Comment on above: Order Comment: Speci men Type: URINE SPECIMEN Ordering Facility: [facility] Address: [address] [place] [address] Performed By: #### L [id number] #### [facility]Raheem [facility] CLIA [id number] [address] [place] [address] [place] [facility] Color (U) Yellow Normal Yellow [facility] Comment on above: Order Comment: Speci men Type: URINE SPECIMEN Ordering Facility: [facility] Address: [address] [place] [address] Performed By: #### L [id number] #### [facility]Raheem [facility] CLIA [id number] [address] [place] [address] [place] Glucose Test strip (U) [Mass/Vol] Negative Normal Negative [facility] Comment on above: Order Comment: Speci men Type: URINE SPECIMEN Ordering Facility: [facility] Address: [address] [place] [address] Performed By: #### L [id number] #### [facility]Raheem [facility] CLIA [id number] [address] [place] [address] [place] [facility] Hemoglobin Ql (U) Negative Normal Negative [facility] Comment on above: Order Comment: Speci men Type: URINE SPECIMEN Ordering Facility: [facility] Address: [address] [place] [address] Performed By: #### L [id number] #### [facility]Raheem [facility] CLIA [id number] [address] [place] [address] [facility] Ketones Ql (U) Negative Normal Negative [facility] Comment on above: Order Comment: Speci men Type: URINE SPECIMEN Ordering Facility: [facility] Address: [address] [place] [address] Performed By: #### L [id number] #### [facility]Raheem [facility] CLIA [id number] [address] [place] [address] Leukocyte esterase Test strip Ql (U) Negative Normal Negative [facility] Comment on above: Order Comment: Speci men Type: URINE SPECIMEN Ordering Facility: [facility] Address: [address] [place] [address] Performed By: #### L [id number] #### [facility]Raheem [facility] CLIA [id number] [address] [place] [address] [place] Nitrite Ql (U) Negative Normal Negative [facility] Comment on above: Order Comment: Speci men Type: URINE SPECIMEN Ordering Facility: [facility] Address: [address] [place] [address] Performed By: #### L [id number] #### [facility])T [facility] CLIA [id number] [address] [place] [address] [place] pH (U) 5.5 [pH] Normal 5.0-8.0 [facility] Comment on above: Order Comment: Speci men Type: URINE SPECIMEN Ordering Facility[facility] Address: [address] [place] [address] Performed By: #### L [id number] #### [facility]Raheem [facility] CLIA [id number] [address] [place] [address] [place] Protein (U) [Mass/Vol] Negative Normal Negative [facility] Comment on above: Order Comment: Speci men Type: URINE SPECIMEN Ordering Facility[facility] Address: [address] [place] [address] Performed By: #### L [id number] #### [facility]Raheem [facility] CLIA [id number] [address] [place] [address] [place] Specific gravity (U) [Rel density] 1.025 Normal 1.005-1.030 [facility] Comment on above: Order Comment: Speci men Type: URINE SPECIMEN Ordering Facility[facility] Address: [address] [place] [address] Performed By: #### L [id number] #### [facility]Raheem [facility] CLIA [id number] [address] [place] [address] [place] Urobilinogen Ql (U) 0.2 EU/dL Normal 0.2-1.0 EU/dL [facility] Comment on above: Order Comment: Speci men Type: URINE SPECIMEN Ordering Facility: [facility] Address: [address] [place] [address] Performed By: #### L [id number] #### [facility]T [facility] CLIA [id number] [address] [place], [place] [address] [place] VITAMIN D 25 HYDROXYon 07-29 25-hydroxyvitamin D3 [Mass/Vol] 29.1 ng/mL Low 31.0-80.0 [facility] Comment on above: Order Comment: Speci men Type: BLOOD SPECIMENOrdering Facility: [facility] Address: [address] [place], [place] [id number] Result Comment: Clas sification of 25 [place] Vitamin D status: Deficiency/Insufficiency: < or = 30 ng/ml. Sufficiency/Optimal Levels: 31-80 ng/mL Toxicity: > 100 ng/mL. Test performed by chemiluminescent immunoassay. Performed By: #### V ITD ####[facility] LABCLIA [id number] [place] [address] [place] HISTORY PHYSICALon HISTORY PHYSICAL HNO ID: [id number] Author: Prisca Van PA-C Service: ? Author Type: Physician National Secretary Type: HANDP Filed: 07/26/2021 1:52 PM Note Text: PRE[facility]ESTHESIA CON[facility]ULT [facility] This is a virtual visit. It required patient-provider interaction for the medical decision making as documented below. Patient has been identified by name and date of : Yes Reason for call: PACC visit Accompanied by: Self Patient name: Nehal Baig Scheduled Surgery: colonoscopy 07/31/2021 at [facility] CHIEF COMPLAINT: Patient presents with: Outpatient Colonoscopy [...] fevers. Neuro: No history of TIA's, stroke, MANAGER SHAREPOINT tumor, impaired sensorium, hemiplegia, paraplegia or quadraplegia. No neurological symptoms or problems. Respiratory: No history of current cough or dyspnea, or pneumonia in the past 6 weeks. +asthma-uses Flovent daily, albuterol 3-5 times/week +JACOBY- BiPAP nightly +lung nodules Cardiovascular: No history of angina, CHF, DC, cardiac surgery or stents. Denies rest pain, [...] content not included)... Normal [facility] CNOVon 07-25-2021 CNOV Office Visit ([facility] ) -- NEHAL BAIG ([id number]) 1970 M Date Time Provider Department 07/25/21 9:20 AM SALOME AGUILLON PENDING SALE TO [facility] During your visit today, we recorded the following information about you: Pulse Blood pressure Weight Height 88/minute 136/78 182.3 kg 1.854 m Salome Aguillon APRN.FRAMEMAN 07/25/2021 5:32 PM Signed This note was [...] content not included)... Normal [facility] Ramez 07-25-2021 RAKESH Telephone (PENDING SALE TO [facility]) -- NEHAL BAIG ([id number]) 1970 M Date Time [facility] we recorded the following information about you: Beatriz Yung 07/25/2021 11:22 AM Signed [facility] states the Golytely is on backorder. They have the Newlytely in stock. Is it OK to substitute? Please advise. [phone]. Beatriz Cowan July 25, 2021 11:22 AM [...] Date Reviewed: 07/25/2021 Reviewed by: Salome Aguillon APRN.FRAMEMAN - Fully Assessed Reason for Visit: Medication [...] AGUILLON on 07/25/21 Normal [facility] CT CHEST WO IVCONon 02-14-20 Radiology Result ACTIONABLE Abnormal [facility] XR Hand - bilateral PA and L ateral and Obliqueon 12-12-2020 IMPRESSION: Mild degenerative changes, no acute findings. Loss Prevention Representative: GREGORY Transcribe Date/Time: Dec 12 2020 3:47P Dictated by : DAJA GOLDSTEIN MD This examination was interpreted and the report reviewed and electronically signed by: DAJA GOLDSTEIN MD on Dec 12 2020 3:47PM [facility] DIVISION OF RADIOLOGY * * *Final Report* * * DATE OF EXAM: Dec 12 2020 1:52PM LZX 5556 - XR HAND 3V PA/LAT/OBL JEMIMA / PROCEDURE REASON: Carpal tunnel syndrome, bilateral * * * * Physician Interpretation * * * * EXAMINATION: XR HAND 3V PA/LAT/OBL JEMIMA HISTORY: JEMIMA CARPAL TUNNEL PAIN Carpal tunnel syndrome, bilateral . TECHNIQUE: XR HAND 3V PA/LAT/OBL JEMIMA Laterality: BILATERAL Number of different views (projections): 3each M: XB_1 COMPARISON: None RESULT: Mild to moderate narrowing of first CMC joints bilaterally with osteophytes. Mild narrowing of the IP joints are also noted. No acute fracture or dislocation. No marginal erosions. No other significant abnormality. DIVISION OF RADIOLOGY Provider, Kev Brown [facility] - 12/12/2020 * * *Final Report* * * DATE OF EXAM: Dec 12 2020 1:52PM LZX 5556 - XR HAND 3V PA/LAT/OBL JEMIMA / PROCEDURE REASON: Carpal tunnel syndrome, bilateral * * * * Physician Interpretation * * * * EXAMINATION: XR HAND 3V PA/LAT/OBL JEMIMA HISTORY: JEMIMA CARPAL TUNNEL PAIN Carpal tunnel syndrome, bilateral . TECHNIQUE: XR HAND 3V PA/LAT/OBL JEMIMA Laterality: BILATERAL Number of different views (projections): 3each M: XB_1 COMPARISON: None RESULT: Mild to moderate narrowing of first CMC joints bilaterally with osteophytes. Mild narrowing of the IP joints are also noted. No acute fracture or dislocation. No marginal erosions. No other significant abnormality. IMPRESSION IMPRESSION: Mild degenerative changes, no acute findings. Loss Prevention Representative: PSCB Transcribe Date/Time: Dec 12 2020 3:47P Dictated by : DAJA GOLDSTEIN MD This examination was interpreted and the report reviewed and electronically signed by: DAJA GOLDSTEIN MD on Dec 12 2020 3:47PM EST [facility] Radiology Study observation (narrative) [facility] XR Hand - bilateral PA and L ateral and ObliqueOrdered By: Ccf Provider on 12-12-2020 [facility] Basic Metab w/rfx MGon 08-02 (cont.) Normal [facility] Comment on above: Result Comment: Aver age GFR for 40-49 years old: 99 mL/min/1.73sq m Chronic Kidney Disease: <60 mL/min/1.73sq m Kidney failure: <15 mL/min/1.73sq m eGFR calculated using average adult body mass. Additional eGFR calculator available at: http://www.[employer]build/multiple_crcl_2012.htm Performed By: #### C BC, BMPX ####[facility] [address] [place], [place] [phone] Director: Nate Stafford MD Anion gap [Moles/Vol] 11 mmol/L Normal 9-17 [facility] Comment on above: Performed By: #### C BC, BMPX ####[facility] [address] [place], [place] [phone] Director: Nate Stafford MD Calcium [Mass/Vol] 8.5 mg/dL Low 8.6-10.4 [facility] Comment on above: Performed By: #### C BC, BMPX ####[facility] [address] [place], [place] [phone] Director: Nate Stafford MD Chloride [Moles/Vol] 101 mmol/L Normal 98-107 [facility] Comment on above: Performed By: #### C BC, BMPX ####[facility] [address] [place] [address] [phone] Director: Nate Stafford MD CO2 [Moles/Vol] 23 mmol/L Normal 20-31 [facility] Comment on above: Performed By: #### C BC, BMPX ####[facility] [address] [place], [place] [phone] Director: Nate Stafford MD Creatinine [Mass/Vol] 0.62 mg/dL Low 0.70-1.20 [facility] Comment on above: Performed By: #### C BC, BMPX ####[facility] [address] [place], [place] [phone] Director: Nate Stafford MD GFR, Amer >60 Normal >60 [facility] Comment on above: Performed By: #### C BC, BMPX ####[facility] [address] [place], [place] [phone] Director: Nate Stafford MD GFR,non Amer >60 Normal >60 [facility] Comment on above: Performed By: #### C BC, BMPX ####[facility] [address] [place] [address] Lab Director: Nate Stafford MD Glucose [Mass/Vol] 120 mg/dL High 70-99 [facility] Comment on above: Performed By: #### C BC, BMPX ####[facility] [address] [place] [address] Lab Director: Nate Stafford MD Potassium [Moles/Vol] 4.3 mmol/L Normal 3.7-5.3 [facility] Comment on above: Performed By: #### C BC, BMPX ####[facility] [address] [place] [address] Lab Director: Nate Stafford MD Sodium [Moles/Vol] 135 mmol/L Normal 135-144 [facility] Comment on above: Performed By: #### C BC, BMPX ####[facility] [address] [place] [address] Lab Director: Nate Stafford MD Urea nitrogen [Mass/Vol] 14 mg/dL Normal 6-20 [facility] Comment on above: Performed By: #### C BC, BMPX ####[facility] [address] [place] [address] Lab Director: Nate Stafford MD BUN/CRE Ratio NOT REPORTED Normal 9-20 [facility] Comment on above: Performed By: #### C BC, BMPX ####[facility] [address] [place] [address] Lab Director: Nate Stafford MD Staging: NOT REPORTED Normal [facility] Comment on above: Performed By: #### C BC, BMPX ####[facility] [address] [place] [address] Lab Director: Nate Stafford MD Basic Metabolic Panel w/ Ref johnny to MGOrdered By: Halina Pathak on 08-02-2020 Anion gap [Moles/Vol] 11 mmol/L 9 - 17 mmol/L Bench Phone: Calcium [Mass/Vol] 8.5 mg/dL Low 8.6 - 10. 4 mg/dL Bench Phone: Chloride [Moles/Vol] 101 mmol/L 98 - 10 7 mmol/L Bench Phone: CO2 [Moles/Vol] 23 mmol/L 20 - 31 mmol/L Bench Phone: Creatinine [Mass/Vol] 0.62 mg/dL Low 0.70 - 1.20 mg/dL Bench Phone: GFR >60 >60 mL/min [employer] Phone: GFR Non- >60 >60 mL/min Bench Phone: GFR/1.73 sq M.predicted MDRD (S/P/Bld) [Vol rate/Area] Bench Phone: Comment on above: Average GFR for 40-4 9 years old: 99 mL/min/1.73sq m Chronic Kidney Disease: <60 mL/min/1.73sq m Kidney failure: <15 mL/min/1.73sq m eGFR calculated using average adult body mass. Additional eGFR calculator available at: http://www.[employer]build/multiple_crcl_2012.htm GFR/1.73 sq M.predicted MDRD (S/P/Bld) [Vol rate/Area] NOT REPORTED Bench Phone: Glucose [Mass/Vol] 120 mg/dL High 70 - 99 mg/dL Bench Phone: Interpretation and review of laboratory results Abnormal Bench Phone: Potassium [Moles/Vol] 4.3 mmol/L 3.7 - 5.3 mmol/L Bench Phone: Sodium [Moles/Vol] 135 mmol/L 135 - 144 mmol/L Bench Phone: Urea nitrogen (BldV) [Mass/Vol] 14 mg/dL 6 - 20 mg/dL Bench Phone: Urea nitrogen/Creatinine (Bld) [Mass ratio] NOT REPORTED Bench Phone: CBCon 08-02-2020 Erythrocyte distribution width (RBC) [Ratio] 13.0 % Normal 11.8-14.4 [facility] Comment on above: Performed By: #### C BC, BMPX ####[facility] CenterVitronet GroupJzqwlkdpqbvg3756 [place], [place] [phone] Lab Director: Nate Stafford MD Hematocrit (Bld) [Volume fraction] 41.8 % Normal 40.7-50.3 [facility] Comment on above: Performed By: #### C BC, BMPX ####[facility] [address] [place] [address] Lab Director: Nate Stafford MD Hemoglobin (Bld) [Mass/Vol] 13.8 g/dL Normal 13.0-17.0 [facility] Comment on above: Performed By: #### C BC, BMPX ####[facility] [address] [place] [address] Lab Director: Nate Stafford MD MCH (RBC) [Entitic mass] 29.3 pg Normal 25.2-33.5 [facility] Comment on above: Performed By: #### C BC, BMPX ####[facility] [address] [place] [address] Lab Director: Nate Stafford MD MCHC (RBC) [Mass/Vol] 33.0 g/dL Normal 28.4-34.8 [facility] Comment on above: Performed By: #### C BC, BMPX ####[facility] [address] [place], [place] [phone] Director: Nate Stafford MD MCV (RBC) [Entitic vol] 88.7 fL Normal 82.6-102.9 [facility] Comment on above: Performed By: #### C BC, BMPX ####[facility] [address] [place], [place] [phone] Director: Nate Stafford MD NRBC Automated 0.0 per 100 WBC Normal 0.0 [facility] Comment on above: Performed By: #### C BC, BMPX ####[facility] [address] [place], [place] [phone] Director: Nate Stafford MD Platelet mean volume (Bld) [Entitic vol] 10.9 fL Normal 8.1-13.5 [facility] Comment on above: Performed By: #### C BC, BMPX ####[facility] [address]tr[address] [place], [place] [phone] Director: Nate Stafford MD Platelets (Bld) [#/Vol] 221 10*3/uL Normal 138-453 [facility] Comment on above: Performed By: #### C BC, BMPX ####[facility] [address] [place], [place] [phone] Director: Nate Stafford MD RBC (Bld) [#/Vol] 4.71 10*6/uL Normal 4.21-5.77 [facility] Comment on above: Performed By: #### C BC, BMPX ####[facility] [address] [place] [address] Lab Director: Nate Stafford MD WBC (Bld) [#/Vol] 10.6 10*3/uL Normal 3.5-11.3 [facility] Comment on above: Performed By: #### C BC, BMPX ####[employer] [place] [address] lab Director: Nate Stafford MD CBCOrdered By: Halina Pathak on 08-02-2020 Hematocrit (Bld) [Volume fraction] 41.8 % 40.7 - 50.3 % Bench Phone: Hemoglobin.gastroint estinal spec 1 Ql (Stl) 13.8 g/dL 13.0 - 17.0 g/dL Bench Phone: MCH (RBC) [Entitic mass] 29.3 pg 25.2 - 33.5 pg Bench Phone: MCHC (RBC) [Mass/Vol] 33.0 g/dL 28.4 - 34.8 g/dL Bench Phone: MCV (RBC) [Entitic vol] 88.7 fL 82.6 - 102.9 fL Bench Phone: NRBC Automated 0.0 0.0 per 100 WBC Bench Phone: Platelet distribution width (Bld) [Ratio] 13.0 % 11.8 - 14.4 % Bench Phone: Platelet mean volume (Bld) [Entitic vol] 10.9 fL 8.1 - 13.5 fL Bench Phone: Platelets (Bld) [#/Vol] 221 10*3/uL Bench Phone: RBC (Bld) [#/Vol] 4.71 10*6/uL 4.21 - 5.7 7 m/uL Bench Phone: WBC (Bld) [#/Vol] 10.6 10*3/uL Bench Phone: Trauma Profileon 08-02-2020 (cont.) Normal [facility] Comment on above: Result Comment: Aver age GFR for 40-49 years old: 99 mL/min/1.73sq m Chronic Kidney Disease: <60 mL/min/1.73sq m Kidney failure: <15 mL/min/1.73sq m eGFR calculated using average adult body mass. Additional eGFR calculator available at: http://www.[employer]/multiple_crcl_2012.htm Performed By: #### E RTPF, TROPI ####[facility] [address] [place], [place] [phone] Director: Nate Stafford MD Anion gap [Moles/Vol] 10 mmol/L Normal 9-17 [facility] Comment on above: Performed By: #### E RTPF, TROPI ####[facility] [address] [place], [place] [phone] Director: Nate Stafford MD Chloride [Moles/Vol] 100 mmol/L Normal 98-107 [facility] Comment on above: Performed By: #### E RTPF, TROPI ####[facility] [address] [place], [place] [phone] Director: Nate Stfaford MD CO2 [Moles/Vol] 24 mmol/L Normal 20-31 [facility] Comment on above: Performed By: #### E RTPF, TROPI ####[facility] [address] [place], [place] [phone] Director: Nate Stafford MD Creatinine [Mass/Vol] 0.71 mg/dL Normal 0.70-1.20 [facility] Comment on above: Performed By: #### E RTPF, TROPI ####[facility] [address] [place], [place] [phone] Director: Nate Stafford MD Ethanol [Mass/Vol] mg/dL Normal <10 [facility] Comment on above: Performed By: #### E RTPF, TROPI ####[facility] [address] [place] [address] Lab Director: Nate Stafford MD Ethanol percent <0.010 Normal <0.010 [facility] Comment on above: Performed By: #### E RTPF, TROPI ####[facility] [address] [place], [place] [phone] Director: Nate Stafford MD GFR, Amer >60 Normal >60 [facility] Comment on above: Performed By: #### E RTPF, TROPI ####[facility] [address] [place], [place] [phone] Director: Nate Stafford MD GFR,non Amer >60 Normal >60 [facility] Comment on above: Performed By: #### E RTPF, TROPI ####[facility] [address] [place] [address] Lab Director: Nate Stafford MD Glucose [Mass/Vol] 109 mg/dL High 70-99 [facility] Comment on above: Performed By: #### E RTPF, TROPI ####[facility] [address]urb[address] [place], [place] [phone] Director: Nate Stafford MD Potassium [Moles/Vol] 4.2 mmol/L Normal 3.7-5.3 [facility] Comment on above: Performed By: #### E RTPF, TROPI ####[facility] [address]ru[address] [place], [place] [phone] Director: Nate Stafford MD Sodium [Moles/Vol] 134 mmol/L Low 135-144 [facility] Comment on above: Performed By: #### E RTPF, TROPI ####[facility] [address] [place] [address] Lab Director: Nate Stafford MD Urea nitrogen [Mass/Vol] 15 mg/dL Normal 6-20 [facility] Comment on above: Performed By: #### E RTPF, TROPI ####[facility] [address] [place] [address] lab Director: Nate Stafford MD Troponinon 08-02-2020 Troponin, High Sens 6 ng/L Normal 0-22 [facility] Comment on above: Result Comment: High Sensitivity Troponin values cannot be compared with other Troponin methodologies. Patients with high levels of Biotin oral intake (i.e >5mg/day) may have falsely decreased Troponin levels. Samples collected within 8 hours of biotin intake may require additional information for diagnosis. Performed By: #### E RTPF, TROPI ####[facility] [address] [place] [address] lab Director: Nate Stafford MD Type + Screenon 08-02-2020 Type + Screen Sample Expiration 08/04/2020,2359 Arm Band Number BE [id number] ABO/Rh(D) A NEGATIVE Antibody Screen NEGATIVE Normal [facility] Comment on above: Performed By: #### T YS ####[facility] [address] [place] [address] lab Director: Nate Stafford MD CT CERVICAL [...] Smalls MD 08/01/20 Final result Normal [facility] CT CERVICAL SPINE WO CONTRAS TOrdered By: Ronnie Lund on 08-01-2020 C6-7 cervical spondy losis and degenerative disc disease. Evidence of paracervical spasm. No acute bony abnormalities are noted Bench Phone: EXAMINATION: CT OF T HE CERVICAL [...] intact. The visualized lung apices are clear. Bench Phone: Francisco, Mhpn Incoming R adiant Results From [facility] - 08/01/2020 7:04 PM EDT EXAMINATION: CT [...] spasm. No acute bony abnormalities are noted Bench Phone: CT CHEST ABDOMEN PELVIS W CO [...] Shoemaker MD 08/01/20 Final result Normal [facility] CT CHEST ABDOMEN PELVIS W [...] to Lung-RADS guidelines. Reference: Radiology. 2017; 284(1):228-43. [employer] Work Phone: EXAMINATION: CT OF T HE [...] hernia. Bones/Soft Tissues: No acute osseous abnormality. [employer] Work Phone: Francisco, Mhpn Incoming R adiant Results From [facility] - 08/01/2020 7:19 PM EDT EXAMINATION: CT [...] to Lung-RADS guidelines. Reference: Radiology. 2017; 284(1):228-43. Bench Phone: CT HEAD WO CONTRASTon 2020 CT [...] Fernández MD 08/01/20 Final result Normal [facility] CT Head WO ContrastOrdered B y: Ronnie Lund on 08-01-2020 1. No acute intracra nial abnormality. Bench Phone: EXAMINATION: CT OF T HE HEAD [...] clear. SOFT TISSUES/SKULL: The calvarium is intact. Bench Phone: Francisco, Mhpn Incoming R adiant Results From [facility] - 08/01/2020 7:01 PM EDT EXAMINATION: CT [...] intact. IMPRESSION: 1. No acute intracranial abnormality. Bench Phone: CT LUMBAR SPINE TRAUMA RECON STRUCTIONon [...] Smalls MD 08/01/20 Final result Normal [facility] CT THORACIC SPINE TRAUMA REC [...] Smalls MD 08/01/20 Final result Normal [facility] Drug Scr, Abuse, Uron 2020 Amphetamine(s),Ur Negative Normal NEG [facility] Comment on above: Result Comment: (Positive cutoff 1000 ng/mL) Performed By: #### U AMIC, LOUIS #### [facility] [address] [place] [address] [phone] Ict Account Manager: aNte Stafford MD Barbiturate(s),Ur Negative Normal NEG [facility] Comment on above: Result Comment: (Positive cutoff 200 ng/mL) Performed By: #### U AMIC, LOUIS #### [facility] [address] [place] [address] 49674 Ict Account Manager: Nate Stafford MD Benzodiazepine(s) Negative Normal NEG [facility] Comment on above: Result Comment: (Positive cutoff 200 ng/mL) Performed By: #### U AMIC, LOUIS #### [facility] [address] [place] [address] [phone] Ict Account Manager: Nate Stafford MD Cannabinoid(s),Ur Negative Normal NEG [facility] Comment on above: Result Comment: (Positive cutoff 50 ng/mL) Performed By: #### U AMIC, LOUIS #### [facility] [address] [place] [address] [phone] Ict Account Manager: Nate Stafford MD Cocaine Metabolite Negative Normal NEG [facility] Comment on above: Result Comment: (Positive cutoff 300 ng/mL) Performed By: #### U AMIC, LOUIS #### [facility] [address] [place] [address] [phone] Ict Account Manager: Nate Stafford MD Interpretive Info Assay provides medic al screening only. The absence of expected drug(s) and/or Normal [facility] Comment on above: Result Comment: meta bolite(s) may indicate diluted or adulterated urine, limitations of testing or timing of collection. Testing for legal purposes should be confirmed by another method. To request confirmation of test result, please call the lab within 7 days of sample submission. Performed By: #### U AMIC, LOUIS #### [facility] [address] [place] [address] [phone] Ict Account Manager: Nate Stafford MD Methadone Ql (U) Negative Normal NEG [facility] Comment on above: Result Comment: (Positive cutoff 300 ng/mL) Performed By: #### U AMIC, LOUIS #### [facility] [address] [place] [address] [phone] Ict Account Manager: Nate Stafford MD Opiate(s), Ur Negative Normal NEG [facility] Comment on above: Result Comment: (Positive cutoff 300 ng/mL) Performed By: #### U AMIC, LOUIS #### [facility] [address] [place] [address] [phone] Ict Account Manager: Nate Stafford MD Oxycodone, Urine Negative Normal NEG [facility] Comment on above: Result Comment: (Positive cutoff 100 ng/mL) Performed By: #### U AMIC, LOUIS #### [facility] [employer] [address] [place] [address] [phone] Ict Account Manager: Nate Stafford MD Phencyclidine, Ur Negative Normal NEG [facility] Comment on above: Result Comment: (Positive cutoff 25 ng/mL) Performed By: #### U AMIC, LOUIS #### [address] [address] Ict Account Manager: Nate Stafford MD Buprenorphrine, Ur NOT REPORTED Normal NEG [facility] Comment on above: Performed By: #### U AMIC, LOUIS #### [facility] [address] [place] [address] 52233 Ict Account Manager: Nate Stafford MD MDMA, Urine NOT REPORTED Normal NEG [facility] Comment on above: Performed By: #### U AMIC, LOUIS #### [facility] [address] [place] [address] [phone] Ict Account Manager: Nate Stafford MD Methamphetamine, Ur NOT REPORTED Normal NEG [facility] Comment on above: Performed By: #### U AMIC, LOUIS #### [facility] [address] [place] [address] [phone] Ict Account Manager: Nate Stafford MD Propoxyphene,Urine NOT REPORTED Normal NEG [facility] Comment on above: Performed By: #### U AMIC, LOUIS #### [facility] [address] [place], [place] [phone] Ict Account Manager: Nate Stafford MD Tricyclic antidepressants Screen Ql (U) NOT REPORTED Normal NEG [facility] Comment on above: Performed By: #### U AMIC, LOUIS #### [facility] [address] [place], [place] [phone] Ict Account Manager: Nate Stafford MD No Panel InformationOrdered By: [...] to body habitus but requires clinical correlation. Bench Phone: EXAMINATION: TWO XRA Y VIEWS OF [...] may relate to swelling or body habitus. Bench Phone: Francisco, Mhpn Incoming R adiant Results From [facility] - 08/01/2020 9:41 PM EDT EXAMINATION: TWO [...] to body habitus but requires clinical correlation. Bench Phone: No Panel InformationOrdered By: Ronnie Lund on 08-01-2020 Degenerative disc di sease at L5-S1. No acute bony abnormalities are seen in the thoracic or lumbar spine Bench Phone: EXAMINATION: CT OF T HE LUMBAR [...] SOFT TISSUES/RETROPERITONEUM: No paraspinal mass is seen. [employer] Work Phone: Francisco, Mhpn Incoming R adiant Results From [facility] - 08/01/2020 7:11 PM EDT EXAMINATION: CT [...] seen in the thoracic or lumbar spine Bench Phone: TRAUMA PANELOrdered By: Carlos Pathak on 08-01-2020 Lawson Test Unable to perform te sting: No specimen received. Bench Phone: Anion gap [Moles/Vol] 10 mmol/L 9 - 17 mmol/L Bench Phone: aPTT Coag (Bld) [Time] 23.3 s Bench Phone: Comment on above: IV Heparin Therapy Range: 48.6-77.8 Blood Bank Specimen BILL FOR SERVICES PERFORMED Bench Phone: Carboxyhemoglobin Unable to perform te sting: No specimen received. % [employer] Work Phone: Chloride [Moles/Vol] 100 mmol/L 98 - 10 7 mmol/L Bench Phone: CO2 [Moles/Vol] 24 mmol/L 20 - 31 mmol/L Bench Phone: Creatinine [Mass/Vol] 0.71 mg/dL 0.70 - 1.20 mg/dL Bench Phone: Ethanol [Mass/Vol] mg/dL <10 mg/dL [employer] Work Phone: Ethanol percent <0.010 <0.010 % [facility] Work Phone: FIO2 Unable to perform te sting: No specimen received. Bench Phone: GFR >60 >60 mL/min [employer] Phone: GFR Non- >60 >60 mL/min Bench Phone: GFR/1.73 sq M.predicted MDRD (S/P/Bld) [Vol rate/Area] Bench Phone: Comment on above: Average GFR for 40-4 9 years old: 99 mL/min/1.73sq m Chronic Kidney Disease: <60 mL/min/1.73sq m Kidney failure: <15 mL/min/1.73sq m eGFR calculated using average adult body mass. Additional eGFR calculator available at: http://www.[employer]/multiple_crcl_2012.htm GFR/1.73 sq M.predicted MDRD (S/P/Bld) [Vol rate/Area] NOT REPORTED Bench Phone: Glucose [Mass/Vol] 109 mg/dL High 70 - 99 mg/dL Bench Phone: hCG Qual PATIENT IS MALE NEGATIVE [facility] Work Phone: HCO3, Venous Unable to perform te sting: No specimen received. 24.0 - 30.0 mmol/L Bench Phone: Hematocrit (Bld) [Volume fraction] 42.3 % 40.7 - 50.3 % Bench Phone: Hemoglobin.gastroint estinal spec 1 Ql (Stl) 14.2 g/dL 13.0 - 17.0 g/dL Bench Phone: INR Coag (Bld) [Relative time] 1.0 {INR} Bench Phone: Comment on above: Therapeutic Range: Moderate Anticoagulant Intensity: INR = 2.0-3.0 High Anticoagulant Intensity: INR = 2.5-3.5 Interpretation and review of laboratory results Abnormal Bench Phone: MCH (RBC) [Entitic mass] 29.3 pg 25.2 - 33.5 pg Bench Phone: MCHC (RBC) [Mass/Vol] 33.6 g/dL 28.4 - 34.8 g/dL Bench Phone: MCV (RBC) [Entitic vol] 87.2 fL 82.6 - 102.9 fL Bench Phone: Methemoglobin Unable to perform te sting: No specimen received. % Bench Phone: Mode Unable to perform te sting: No specimen received. Bench Phone: Negative Base Excess, Srikanth Unable to perform testing: No specimen received. 0.0 - 2.0 mmol/L Bench Phone: NOTIFICATION Unable to perform te sting: No specimen received. Bench Phone: NOTIFICATION TIME Unable to perform te sting: No specimen received. Bench Phone: NRBC Automated 0.0 0.0 per 100 WBC Bench Phone: O2 Device/Flow/% Unable to perform te sting: No specimen received. Bench Phone: O2 Sat, Srikanth Unable to perform te sting: No specimen received. % Bench Phone: Oxyhemoglobin Unable to perform te sting: No specimen received. 95.0 - 98.0 % Bench Phone: pCO2, Srikanth Unable to perform te sting: No specimen received. Bench Phone: pCO2, Srikanth, Temp Adj Unable to perform te sting: No specimen received. Bench Phone: Peep/Cpap Unable to perform te sting: No specimen received. Bench Phone: pH, Srikanth Unable to perform te sting: No specimen received. Bench Phone: pH, Srikanth, Temp Adj Unable to perform te sting: No specimen received. Bench Phone: Platelet distribution width (Bld) [Ratio] 12.9 % 11.8 - 14.4 % Bench Phone: Platelet mean volume (Bld) [Entitic vol] 10.1 fL 8.1 - 13.5 fL Bench Phone: Platelets (Bld) [#/Vol] 220 10*3/uL Bench Phone: pO2, Srikanth Unable to perform te sting: No specimen received. Bench Phone: pO2, Srikanth, Temp Adj Unable to perform te sting: No specimen received. Bench Phone: Positive Base Excess, Srikanth Unable to perform testing: No specimen received. 0.0 - 2.0 mmol/L Bench Phone: Potassium [Moles/Vol] 4.2 mmol/L 3.7 - 5.3 mmol/L Bench Phone: PSV Unable to perform te sting: No specimen received. Bench Phone: PT Coag (PPP) [Time] 10.4 s [employer] Phone: Pt Temp Unable to perform te sting: No specimen received. Bench Phone: Pt. Position Unable to perform te sting: No specimen received. Bench Phone: RBC (Bld) [#/Vol] 4.85 10*6/uL 4.21 - 5.7 7 m/uL Bench Phone: Respiratory Rate Unable to perform te sting: No specimen received. Bench Phone: Sample Site Unable to perform te sting: No specimen received. Bench Phone: Set Rate Unable to perform te sting: No specimen received. Bench Phone: Sodium [Moles/Vol] 134 mmol/L Low 135 - 144 mmol/L Bench Phone: Text for Respiratory Unable to perform t esting: No specimen received. Bench Phone: Total Hb Unable to perform te sting: No specimen received. 12.0 - 16.0 g/dl Bench Phone: Total Rate Unable to perform te sting: No specimen received. [employer] Work Phone: Urea nitrogen (BldV) [Mass/Vol] 15 mg/dL 6 - 20 mg/dL Bench Phone: VT Unable to perform te sting: No specimen received. Bench Phone: WBC (Bld) [#/Vol] 14.1 10*3/uL High Bench Phone: TYPE AND SCREENOrdered By: Ivonne Ba on 08-01-2020 ABO/Rh Negative [employer] Work Phone: Arm Band Number BE [phone] [facility] [facility] Work Phone: Expiration Date 08/04/2020,2359 [employer] Work Phone: Trauma Profileon 08-01-2020 aPTT Coag (Bld) [Time] 23.3 s Normal 20.5-30.5 [facility] Comment on above: Result Comment: IV Heparin Therapy Range: 48.6-77.8 Performed By: #### E RTBERNIE TROPI ####[employer] [place] [address] [phone] lab Director: Nate Stafford MD INR Coag (PPP) [Relative time] 1.0 {INR} Normal [facility] Comment on above: Result Comment: Therapeutic Range: Moderate Anticoagulant Intensity: INR = 2.0-3.0 High Anticoagulant Intensity: INR = 2.5-3.5 Performed By: #### E RTPAlanna TROPI ####[employer] [place] [address] [phone] Lab Director: Nate Stafford MD PT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
[2024-02-01 09:32] LABS: Bilirubin Urine NEGATIVE (NEGATIVE); Blood Urine NEGATIVE (NEGATIVE); Clarity Urine CLEAR (CLEAR); Color Urine LT. YELLOW (YELLOW); Glucose Urine UA >=1000 mg/dL (NEGATIVE); Ketones Urine NEGATIVE (NEGATIVE); Leukocyte Esterase Urine NEGATIVE (NEGATIVE); Nitrite Urine NEGATIVE (NEGATIVE); Protein Urine NEGATIVE (NEG/TRACE); Specific Gravity Urine 1.015 (1.005-1.025); Urobilinogen Urine 0.2 EU/dL (0.2-1.0)
[2024-02-01 09:39] LABS: Estimated Average Glucose 103 mg/dL; Glycohemoglobin A1C 5.2 % (4.5-6.2)
[2024-02-01 09:41] LABS: Basophils Absolute Auto 0.1 10^3/uL (0.0-0.1); Basophils Percent Auto 0.7 % (0.2-2.0); Eosinophils Absolute Auto 0.2 10^3/uL (0.0-0.7); Hemoglobin 15.2 g/dL (14.0-18.0); Immature Granulocytes Abs Auto 0.02 10^3/uL (0.00-0.03); Immature Granulocytes Pct Auto 0.2 % (0.0-0.5); Lymphocytes Absolute Auto 1.6 10^3/uL (1.2-3.8); Lymphocytes Percent Auto 19.1 % (20.5-60.0); Mean Corpuscular Volume 84.9 fL (80.0-94.0); Mean Platelet Volume 9.7 fL (9.5-13.5); Monocytes Absolute Auto 0.7 10^3/uL (0.3-0.8); Monocytes Percent Auto 8.3 % (1.7-12.0); Neutrophils Absolute Auto 5.9 10^3/uL (1.4-6.5); Neutrophils Percent Auto 69.7 % (43.0-75.0); Platelet Count 220 10^3/uL (150-450); Red Blood Count 5.42 10^6/uL (4.70-6.10); Red Cell Distribution Width 16.6 % (11.0-15.0); White Blood Count 8.5 10^3/uL (4.0-11.0)
[2024-02-01 10:04] LABS: Bacteria Urine TRACE #/HPF (NONE SEEN); Cast Seen? NONE SEEN #/LPF (NONE SEEN); Crystals Seen? None Seen #/HPF (None Seen); Mucus Urine TRACE (NONE SEEN); RBC Urine 0-2 #/HPF (0-2); Squamous Epithelial Cell Urine RARE #/LPF (NONE/RARE); WBC Urine 0-2 #/HPF (NONE SEEN)
[2024-02-01 10:05] LABS: Hyaline Casts Urine RARE; Urine Culture Indicated ALREADY ORDERED
[2024-02-01 10:18] LABS: Alanine Aminotransferase 28 U/L (16-63); Albumin Globulin Ratio 1.3; Albumin Level 4.2 g/dL (3.4-5.0); Alkaline Phosphatase 69 U/L (46-116); Anion Gap 11.9; Aspartate Amino Transferase 15 U/L (15-37); BUN Creatinine Ratio 18.6; Bilirubin Total 0.8 mg/dL (0.2-1.0); Calcium 9.2 mg/dL (8.5-10.1); Carbon Dioxide 30.4 mmol/L (21.0-32.0); Chloride 102 mmol/L (98-107); Chol HDL Ratio 5.2; Cholesterol 252 mg/dL (<=200); Estimated GFR (African America >60 (>=60 mL/min/1.73m^2); Estimated GFR (Non-African Ame >60 (>=60 mL/min/1.73m^2); Free T3 2.71 pg/mL (2.18-3.98); Globulin 3.3 g/dL; Glucose 105 mg/dL (74-106); HDL Cholesterol 48 mg/dL (40-60); Potassium 4.3 mmol/L (3.5-5.1); Sodium 140 mmol/L (136-145); Thyroid Stimulating Hormone 1.472 uIU/mL (0.358-3.740); Total Protein 7.5 g/dL (6.4-8.2); Triglycerides 158 mg/dL (<=150); Uric Acid 3.5 mg/dL (3.5-7.2); VLDL CHOLESTEROL 31.6 mg/dL
[2024-02-01 10:45] LABS: Prostate Specific Antigen Scrn 0.53 ng/mL (<=4.00)
[2024-02-02 10:08] LABS: Vitamin B12 442 pg/mL (232-1245)
[2024-02-03 11:09] LABS: Insulin 22.7 uIU/mL (2.6-24.9)
== END 2024-02-01 08:57 | disposition home or self-care (01) ==
PROVIDERS: PCP Family Medicine; Visit Provider Family Medicine
DX: R30.0 Dysuria (principal); R53.83 Other fatigue
CPT/HCPCS: 36415; 80053; 80061; 81001; 82306; 82607; 83036; 83525; 83540; 84436; 84443; 84481; 84550; 85025; 87086; G0103

== ENCOUNTER 2024-02-04 15:42 | Outpatient (REF) | payer BC, SELFPAY ==
[2024-02-04 16:05] LABS: Internal Control Within Normal Limits; Occult Blood Positive
== END 2024-02-04 15:43 | disposition home or self-care (01) ==
LOC: LAB 15:42
PROVIDERS: PCP Family Medicine; Visit Provider Nurse Practitioner Family
DX: R30.0 Dysuria (principal); R53.83 Other fatigue
CPT/HCPCS: G0328

== ENCOUNTER 2024-02-08 07:59 | Outpatient (OUT) | payer BC, SELFPAY ==
--- NOTE | 2024-02-08 08:01 | US_ITS ---
The [address] [address] Patient Name: NEHAL BAIG MRN: [id number] date: 1970 Sex: M Assigned Patient Location: US Current Patient Location: Accession/Order Number: [id number] Exam Date: 02/08/2024 08:06 Report Date: 02/10/2024 08:27 At the request of: MARY GARCIA Procedure: US right upper quadrant EXAM: US right upper quadrant HISTORY: . RUQ ABDOMINAL PAIN R10.11 COMPARISON: None. TECHNIQUE: Grayscale and color imaging was performed FINDINGS: The pancreas was obscured due to overlying bowel gas. The liver is prominent in size measuring 19 cm. No masses are noted. Color-flow is noted in the portal and hepatic veins. The gallbladder appears normal with no stones or sludge identified. No gallbladder wall thickening is noted. Common bile duct measures 5 mm. Right kidney measures 12 x 5.1 x 5.3 cm. No solid renal cortical masses or hydronephrosis was noted. No fluid was noted in the right upper quadrant. US/US right upper quadrant IMPRESSION: 1. The liver was prominent in size measuring 19 cm. No masses were noted. 2. The pancreas was obscured due to overlying bowel gas. 3. The remainder the right upper quadrant was unremarkable. Electronically authenticated by: KINGSLEY COWAN Date: 02/10/2024 08:27
--- OUTSIDE RECORDS SUMMARY | 2024-02-08 08:04 | XMS_ITS | CCD ---
Author Organization [facility] Care Team Providers Care Tar Heater Name Role Phone Pal SECURITY ASSURANCE ANALYST - [facility] Primary Care Provide r [facility] Primary Care Unavailable JUANITA CARMONA Consulting Unavailable JUANITA CARMONA Attending Unavailable JUANITA CARMONA [facility]mitting [facility]UR[facility] ANALY[facility] Primary Care Provider [facility] Primary Care Physician Unavaila Nicolasa Barrios Unavailable Unavailable [facility] Physician [facility]UR[facility] ANALY[facility] Primary Care Provider [facility] SECURITY ASSURANCE ANALYST.[facility] SECURITY [facility]UR[facility] ANALYST.[facility] Primary Care Provider JAVIER, DR KINGSLEY Ro Consulting Unavailable YRN, DR ARROYO Attending Unavailable YRN, DR ARROYO Admitting Unavailable TOSHA, DR JAYY Marte Consulting Unavailable YRN, DR ARROYO Consulting Unavailable [facility] Referring Unavailable [facility] Primary Care Unavailable ANH MENA Attending Unavailab ANH Morales Referring Unavailab [facility] Primary Care Unavailable [facility] Primary Care Unavailable [facility] Referring Unavailable [facility] Primary Care Unavailable [facility] Attending Unavailable [facility] Referring Unavailable [facility] Primary Care Unavailable [facility] Primary Care Unavailable JIMMY SHARMA Attending Unavailable JIMMY SHARMA Referring Unavailable [facility] Attending Unavailable [facility] Primary Care Unavailable [facility] Primary Care Unavailable [facility] Referring Unavailable [facility] Primary Care Unavailable [facility] Attending Unavailable [facility] Referring Unavailable [facility] Primary Care Unavailable [facility] Referring Unavailable [facility] Primary Care Unavailable [facility] Attending Unavailable [facility] Primary Care Unavailable JAYY PATEL Referring Unavailable [facility] Primary Care Unavailable [facility] Attending Unavailable [facility] Primary Care Unavailable ANH MENA Attending Unavailab le PAL, NATALIA Referring Unavailable ANH MENA Referring Unavailab BRITNEY Willson Attending Unavailable [facility] Primary Care Unavailable [facility] Primary Care Unavailable [facility], MELFA Referring Unavailable [facility] Primary Care Unavailable [facility] Referring Unavailable Kelly Yi Unavailable Pal, HAIDER [facility] Primary Care Provider HAIDER Yi Attending Provider HAIDER Quezada Attending Provider HAIDER Guerrero Primary Care Provider Siri Quezada Unavailable Vonnie Guerrero Primary Care Physician [phone] Kandis Amado Unavailable HAIDER Aguillon [facility] Primary Care Provider HAIDER Yi Attending Provider HAIDER Quezada Attending Provider HAIDER Guerrero Primary Care Provider DO Huan Cowan Attending Provider Katya Harrington Unavailable Unavailable Vonnie Guerrero Attending Unavailable Rishi Cowanson A Admitting Unavailable Huan oCwan A Attending Unavailable Yung, Huan A Admitting Unavailable Yung, Huan A Attending Unavailable Yung Huan A Admitting Unavailable Huan Cowan A Attending Unavailable Vonnie Guerrero Attending Unavailable [facility] Primary Care Unavailable Joel Bledsoe Attending Unavailable Joel Bledsoe Admitting Unavailable Joel Bledsoe Admitting Unavailable DEMETRIUS BERNAL Primary Care Unavailable POLY KAUR Attending Unavailable Siri Quezada Admitting Unavailable Vonnie Guerrero Primary Care Unavailable Siri Quezada Attending Unavailable Siri Quezada Admitting Unavailable oVnnie Guerrero Primary Care Unavailable Siri Quezada Attending Unavailable Siri Quezada Admitting Unavailable AmaliaNatalia alarcon Mary Primary Care Unavailabl e Siri Quezada Attending Unavailable Huan Cowan Attending Unavailable Huan Cowan Admitting Unavailable Kelly Yi Attending Unavailable Kelly Yi Admitting Unavailable Natalia Aguillon [facility] Unavailabl e GEORGE, PAUL Admitting Unavailable GEORGE, PAUL Attending Unavailable DEMETRIUS BERNAL Referring Unavailable CANDICE, Referring Unavailable CANDICE, Referring Unavailable GEORGE, PAUL Referring Unavailable KULAKOISAIAS MCKEON Referring Unavailabl e CANDICE, Referring Unavailable KULAKOWSKI, ISAIAS Herbert Referring Unavailabl e GEORGE, PAUL Admitting Unavailable GEORGE, PAUL Attending Unavailable DREW THORPE Referring Unavailable CANDICE, Referring Unavailable KULAKOWSKI, ISAIAS Herbert Referring Unavailabl e GEORGE, PAUL Referring Unavailable OVITT, NINFA Referring Unavailable CANDICE, MAI Referring Unavailable GORDON NIX Referring Unavailable GEORGE, PAUL Referring Unavailable CANDICE, Referring Unavailable GEORGE, PAUL Referring Unavailable KUCHAS, ISAIAS Herbert Referring Unavailabl e KULAKOWSKI, ISAIAS Herbert Referring Unavailabl e JODY KOCH Referring Unavailable OVITT, NINFA Referring Unavailable GEORGE, PAUL Referring Unavailable GEORGE, PAUL Referring Unavailable CANDICE, Referring Unavailable KUISAIAS DOHERTY Referring Unavailabl e KULAKOISAIAS MCKEON Referring Unavailabl e ELPROSPERHAWLucia, KENDALL Attending Unavailable ELRENETTA, KENDALL Attending Unavailable ISAIAS DEMPSEY Attending Unavailabl e GUSTAVOANNABELLA Attending Unavailable CARLEEN MONTALVO Attending Unavailable OVITT, NINFA Attending Unavailable CANDICEMAI Attending Unavailable ELTAHAWY, KENDALL Attending Unavailable ANNABELLA CHEN Attending Unavailable GEORGE, PAUL Referring Unavailable RUPERT ANGELES Attending Unavailable ISAIAS DEMPSEY Referring Unavailabl e KULAKOWSKI, ISAIAS Herbert Referring Unavailabl e KULAKOWSKIISAIAS Referring Unavailabl e KULAKOWSKI, ISAIAS Herbert Referring Unavailabl e KULAKOWSKI, ISAIAS Herbert Referring Unavailabl e CANDICE, Referring Unavailable CANDICE, Referring Unavailable KULAKOWSKI, ISAIAS J Referring Unavailabl e ROSELYN, ISAIAS Herbert Referring Unavailabl e ISAIAS DEMPSEY Referring Unavailabl e Jean SEXTON, Brenton Reid Attending Unavailable Giedfrankie SEXTON, Andgorge Reid Attending Unavailable Giedraitis , Andrius Reid Attending Unavailable Gieditis , Andrius Reid Attending Unavailable Jean SEXTON, Andrius Reid Attending Unavailable Giedfrankie SEXTON, Andrius Reid Attending Unavailable Pal [facility], Natalia Primary Care Provider Demetrius Bernal MD Primary Care Provider [phone] HUAN COWAN Referring Unavailable HUAN COWAN Attending Unavailable HUAN COWAN Attending Unavailable HUAN COWAN Referring Unavailable HUAN COWAN Attending Unavailable HUAN COWAN Attending Unavailable HUAN COWAN Referring Unavailable Allergies Allergy Classification Reported Allergen(s) Allergy Type Date of Onset Reaction(s) Facility Unclassified (1 source) No Known Medication Allergies; Translations: [No Known Medication Allergies] Propensity to adverse reactions to drug (disorder) [facility] Repository (2 sources) atorvastatin; Translations: [ATORVASTATIN] Drug Allergy 4 [facility] Repository Medications Current Medications Medication Drug Class(es) Dates Sig (Normalized) Sig (Original) acetaminophen 500 mg oral tablet (7 sources) Start: 08-02-2020 End: 08-07-2020 take 2 [...] Refills(s) 0 Start Date: 03/01/19 Status: Ordered acetaminophen (T ylenol) 325 MG tablet every 4 (four) hours. Active take 2 tablets by mo uth every twelve hours Acetaminophen 500 MG 2 tablet Orally bid Active take 1 tablet by júnior th every six hours as needed Acetaminophen 500 MG 1 tablet as needed Orally every 6 hrs Active acetaminophen 325 mg / HYDROcodone bitartrate 7.5 mg oral tablet (2 sources) Opioid Agonist Start: 06-11-2023 Hydrocodone-Ac etaminophen Active 1 TAB PO June 11, 2023 12:00am take 1 tablet by júnior th every four hours as needed HYDROcodone-acetaminophen ([place]) 7.5-32 5 MG tablet 1 tablet every 4 (four) hours if needed Active [employer] 10V[employer] CPAP machine supplies [...] in structed every 4 hours as needed. amiodarone hydrochloride 200 mg oral tablet (1 source) Antiarrhythmic amiodarone (Pacerone) 200 MG tablet 1 (one) time each day at the same time. Active aspirin 81 mg delayed release oral tablet (9 sources) Platelet Aggregation Inhibitor, Nonsteroidal Anti-inflammatory Drug Start: take 1 tablet by mouth once daily aspirin 81 mg Oral EC Tab 81 mg = 1 tab(s), Oral, Daily, Refills(s) 0, Prophylaxis Start Date: 03/01/19 Status: Ordered Start: 03-01-2019 take 1 tablet by júnior once daily aspirin 81 mg Oral EC Tab 81 mg = 1 tab(s), Oral, Daily, Refills(s) 0, Prophylaxis Start Date: 03/01/19 Status: Ordered bacitracin zinc 0.5 unt/mg t opical ointment (1 source) Start: 08-03-2020 bacitracin oin tment Start: 08-03-2020 bacitracin oin tment baclofen 20 mg oral tablet (2 sources) gamma-Aminobutyric Acid-ergic Agonist Start: 07-11-2023 baclofen (Lioresal) 20 MG tablet Take 20 mg by mouth in the morning and 20 mg at noon and 20 mg in the evening. 07/11/2023 Active Start: 06-11-2023 Baclofen Activ e 10 MG PO June 11, 2023 12:00am [...] day(s), # 9 cap(s), Refills(s) 0, Pharmacy: [id number], 185.5, cm, 08/08/21 12:06:00 EDT, Height/Length Dosing, 179.2, kg, 08/08/21 12:06:00 EDT, Weight Dosing Start Date: 08/23/21 Stop Date: 08/26/21 Status: Ordered cholecalciferol 0.05 mg oral capsule (3 sources) Vitamin D cholecalciferol (Vitamin D-3) 50 MCG (1999) capsule 1 capsule Active take 1 tablet by júnior th every twenty-four hours Vitamin D3 50 MCG (1999) 1 tablet Orally Once a day Active docusate sodium 100 mg oral capsule (2 sources) Start: 08-23-2021 take 1 capsule by mouth twice daily as needed for constipation Colace 100 mg Cap 100 mg = 1 cap(s), Oral, BID, PRN for constipation, # 20 cap(s), Refills(s) 0, Pharmacy: [id number], 185.5, cm, 08/08/21 12:06:00 EDT, Height/Length [...] night, Supply Start Date: 01/09/23 Status: Ordered furosemide 40 mg oral tablet (1 source) Loop Diuretic Start: 07-25-2023 take 1 tablet by mouth every other day furosemide (Lasix) 40 MG tablet Take 40 mg by mouth every other day 07/25/2023 Active gabapentin 300 mg oral capsule (2 sources) Anti-epileptic Agent Start: 08-02-2020 take 300 mg by mouth three times daily 300 mg, Oral, 3 TIMES DAILY, First dose on Sat08/02/20 at 0900 gabapentin (Neur ontin) 800 MG tablet Take 600 mg by mouth in the morning and 600 mg in the evening. Active ibuprofen 600 mg oral tablet (9 sources) Nonsteroidal Anti-inflammatory Drug Start: 08-23-2021 take 1 tablet by mouth every eight hours as needed for pain ibuprofen 600 mg Tab 600 mg = 1 tab(s), Oral, q8hr, PRN as needed for pain, with food or milk, # 60 tab(s), Refills(s) 0, Pharmacy: [id number], 185.5, cm, 08/08/21 12:06:00 EDT, Height/Length Dosing, 179.2, kg, 08/08/21 12:06:00 EDT, Weight Dosing Start Date: 08/23/21 Status: Ordered Start: 08-02-2020 End: 08-07-2020 take 1 tablet by mouth four times daily as needed for pain ibuprofen (ADVIL;MOTRIN) 600 MG tablet Take 1 tablet by mouth 4 times daily as needed for Pain 20 tablet 0 08/02/2020 08/07/2020 Active ibuprofen 200 MG tablet Take by mouth Active take 1 tablet by júnior th every twelve hours Ibuprofen 800 MG [...] (20 sources) Angiotensin Converting Enzyme Inhibitor Start: 01-05-2021 End: 2022 take 1 tablet by mouth once daily lisinopril 10 mg Tab 10 mg = 1 tab(s), Oral, Daily, # 90 tab(s), Refills(s) 3, Pharmacy: [facility]/pharmacy #[id number], 185.5, cm, 01/09/23 16:37:00 EDT, Height/Length Dosing, 174.3, kg, 01/09/23 16:37:00 EDT, Weight Dosing Start Date: 01/09/23 Status: Ordered Start: 03-01-2019 End: 04-18-2020 take 1 tablet by mouth once daily lisinopril (ZESTRIL, PRINIVIL) 5 mg tablet Take 5 mg by mouth once daily. 0 11/06/2019 04/18/2020 Discontinued Comment on above: Take 1 tablet by júnior th once daily. TAKE 1 TABLET BY JÚNIOR TH EVERY DAY Take 5 mg by mouth o nce daily. Magnesium (2 sources) take 1 tablet by mouth once daily Magnesium 500 MG 1 tablet with a meal Orally Once a day Active methocarbamol 750 mg oral tablet (3 sources) Muscle Relaxant Start: take 2 tablets by mouth every eight hours methocarbamol (Robaxin) 750 MG tablet Take 1,500 mg by mouth every 8 (eight) hours 07/05/2023 Active Start: 08-02-2020 End: 08-12-2020 take 1 tablet by mouth four times daily methocarbamol (ROBAXIN) 750 MG tablet Take 1 tablet by mouth 4 times daily for 10 days 40 tablet 0 08/02/2020 08/12/2020 Active 24 hr metoprolol succinate 25 mg extended release oral tablet (1 source) beta-Adrenergic Fredrick Start: 07-18-2023 take 1 tablet by mouth every twenty-four hours at bedtime metoprolol succinate XL (Toprol-XL) 25 MG 24 hr tablet Take 25 mg by mouth at bedtime 07/18/2023 Active Multiple Vitamin (Multi-Vitamin) tablet (1 source) take 1 tablet by mouth in the morning Multiple Vitamin (Multi-Vitamin) tablet Take 1 tablet by mouth in the morning. Active omeprazole 40 mg delayed release oral capsule (20 sources) Proton Pump Inhibitor Start: 03-23-2017 take 1 capsule by mouth once daily Prilosec 20 mg Cap - DR 20 mg, Oral, Daily, Refills(s) 0 Start Date: 03/23/17 Status: Ordered Start: 03-23-2017 take 1 capsule by mo [facility] once daily Prilosec 20 mg Cap - DR 20 mg, Oral, Daily, Refills(s) 0 Start Date: 03/23/17 Status: Ordered Start: 2016 take 1 capsule by mo uth before breakfast omeprazole (PriLOSEC) [address] capsule TAKE 1 CAPSULE (40 MG) BY MOUTH BEFORE BREAKFAST 07/18/2023 Active take 1 tablet by júnior th once daily PriLOSEC OTC 20 MG 1 tablet 30 minutes before morning meal Orally Once a day Active End: 07-25-2021 Omeprazole Magnesium (PRILOS EC OTC) 20 mg tablet 2 tablet 0 07/25/2021 Discontinued (Discontinued by Patient) Comment on above: Take 1 capsule by mo [facility] once daily. 2 tablet ondansetron (ZOFRAN-ODT) [...] Starting Sat08/01/20 at 2358 polyethylene glycol 3350 24092 mg powder for oral solution (1 source) Osmotic Laxative Start: 08-01-2020 17 g, Oral, D AILY PRN, Constipation, Starting Sat08/01/20 at 2358 First line therapy for constipation microencapsulated potassium chloride 20 meq extended release oral tablet (1 source) Start: 07-05-2023 potassium chlo ride CR (Klor-Con M20) 20 MEQ ER tablet Take 20 mEq by mouth in the morning. 07/05/2023 Active predniSONE 10 mg oral tablet (5 sources) Start: 06-11-2023 Prednisone Act chi 10 MG PO June 11, 2023 12:00am Start: 12-16-2022 take 1 tablet by júnior th every twelve hours predniSONE 20 MG [...] Ordered Start: 08-08-2021 take 1 tablet by júnior th once daily Vitamin D 1000 intl units (25 mcg) Tab 25 mcg = 1 tab(s), Oral, Daily, Refills(s) 0, Prophylaxis Start Date: 08/08/21 Status: Ordered warfarin sodium 5 mg oral tablet (1 source) Vitamin K Antagonist Start: 07-05-2023 warfarin (Coumadin) 5 MG tablet Take 5mg daily, or as directed by the anticoagulation service provider. Dose may change, based on INR results. 07/05/2023 Active Zinc (1 source) take 1 tablet by mouth once daily Zinc 30 MG 1 tablet Orally Once a day Active zinc gluconate 30 mg oral tablet (1 source) take 1 tablet by mouth every twenty-four hours Zinc 30 MG 1 tablet Orally Once a day Active Completed/Discontinued Medications Medication Drug Class(es) Dates Sig (Normalized) Sig (Original) acetaminophen 325 mg / oxyCODONE hydrochloride 5 mg oral tablet (2 sources) Opioid Agonist Start: 08-23-2021 Percocet 325 mg-5 mg Tab See Instructions, as needed for pain, 40 tab(s), Refill(s) 0, 1-2 tab(s) Oral q4hr, [id number], 185.5, cm, 08/08/21 12:06:00 EDT, [...] End: 05-21-2022 take 1 tablet by mouth at bedtime atorvastatin (Lipitor) 40 MG tablet Take 40 mg by mouth at bedtime. 02/15/2022 Active Start: 03-01-2019 End: 02-15-2022 take 1 tablet by mouth once daily at bedtime atorvastatin (LIPITOR) 20 mg tablet Indications: Mixed hyperlipidemia Take 1 tablet by mouth daily at bedtime. 90 tablet 1 08/10/2021 02/15/2022 Discontinued Comment on above: Take 1 tablet by júnior th daily at bedtime. Take 20 mg by mouth daily at bedtime. celecoxib 200 mg oral capsule (2 sources) Nonsteroidal Anti-inflammatory Drug Start: 03-01-20 End: 07-26-19 celecoxib (CELEBREX) 200 mg capsule COMPOUNDED PRESCRIPTION (1 source) Start: 11-09-19 End: 09-14-19 COMPOUNDED PRESCRIPTION Indications: JACOBY (obstructive sleep apnea) Please perform autopap titration study. Please fax results to [phone]. DX: JACOBY G47.33 1 Each 0 11/08/2016 09/13/2020 Discontinued Comment on above: Please perform autop ap titration study. Please fax results to [phone]. DX: JACOBY G47.33 doxepin hydrochloride 10 mg [...] (1 source) Opioid Agonist Start: 08-02-19 End: 05-03-20 21 fentaNYL (SUBLIMAZE) injection 50 mcg Start: 08-01-2020 [...] Comment on above: Take 2 tablets by [facility] daily with dinner. 1 ml [...] 10 mL injection (DEFINITY) polyethylene glycol 3350 632698 mg / potassium chloride 2970 mg / sodium bicarbonate 6740 mg / sodium chloride 5860 mg / sodium sulfate 85538 mg powder for oral solution (14 sources) [...] Comment on above: Take 1 tablet by júnior once daily. traZODone hydrochloride 100 mg oral [...] disease (2 sources) Atherosclerotic heart disease of [place] coronary artery without angina pectoris; Translations: [Atherosclerotic heart disease of [place] coronary artery without angina pectoris] Onset: 4 [...] [Morbid obesity with BMI of 50.0-59.9, adult ([facility])] Onset: 0 Chronic Other nutritional; endocrine; and metabolic disorders (4 sources) Body mass index (BMI) 50.0-59.9, adult; Translations: [Morbid obesity with BMI of 50.0-59.9, adult ([facility])] Onset: 0 Chronic Other nutritional; endocrine; and [...] Reference Range Facility 36on 11-12-2023 36 Normal [facility] 36on 10-07-2023 36 Normal [facility] Follow-Upon 10-07-2023 Follow-Up Normal [facility] Orders Onlyon 10-07-2023 Orders Only Normal [facility] Telephoneon 10-07-2023 Telephone Normal [facility] ED Clinical Summaryon 2023 ED Clinical Summary [facility] ? Urgent Care [address] [place] [address] Clinical Summary PERSON INFORMATION Name: NEHAL BAIG Age: 52 Years Sex: MALE : 1970 MRN: Acct#: Visit Reason: Medical screening exam; DOT PHYSICAL Arrival: 09/26/2023 09:05:07 Discharge: 09/26/2023 10:39:00 LOS: 000 01:34 Check In: 09/26/2023 09:05:07 Checkout: 09/26/2023 10:39:00 Address: [address] [place] [address] PCP: DEMETRIUS BERNAL PROVIDER INFORMATION Provider Role Assigned Unassigned [...] EDUCATION INFORMATION Instructions: Follow-Up: With: Address: When: DEMETRIUS BERNAL [address] [place] [address], [place] [address] Business (1) , only if needed DIAGNOSIS: Physical exam Patient Understands: Yes - Patient/family/caregiver verbalizes understanding of instructions given Comment: Normal [facility] ED Patient Summaryon 024 ED Patient Summary [facility] ? Urgent Care [address] [place] [id number] PATIENT DISCHARGE INSTRUCTIONS Patient Information Name: NEHAL BAIG Age: 52 Years Date of : 1970 Reason For Visit: Medical screening exam; DOT PHYSICAL Arrival Time: 09/26/2023 09:05:07 Primary Care Physician: DEMETRIUS BERNAL Attending Physician: Joel Bledsoe PA-C Comment: Patient Education With: Address: When: DEMETRIUS BERNAL [address] [place] [address], [facility] [place] [address] Business (1) , only if needed Medication Information: The exam and treatment you received today in the [facility] Emergency Department were for an [...] so we can reach you if necessary. [facility] Emergency Department has provided you with a complete list of medications post discharge. 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 junior software engineer/provider of your visit and for further instruction [...] Diagnosis: Diagnoses This Visit Medical screening exam ([id number]) Physical exam (Z00.00) If you received any [...] Standard Urin (more content not included)... 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 POCT Glucose Levelon 024 Glucose [Mass/Vol] 112 mg/dL Normal 74-118 [facility] Comment on above: Result Comment: OPR_ ID=[email or web address],TGC FLAG = False,Meter:[id number] Internet Specialist:Remy Montes Performed By: #### 4 [id number] ####[facility] (DEFAULT)[address] [place] [address] UA Standardon 09-26-2023 Breakpoint UA [facility] Comment on above: Performed By: #### 1 [id number] #### [facility] (DEFAULT) [address] [place] [address] Color (U) Yellow [facility] Comment on above: Performed By: #### 1 [id number] #### [facility] (DEFAULT) [address] [place] [address] Glucose (U) [Mass/Vol] mg/dL Normal [facility] Comment on above: Performed By: #### 1 [id number] #### [facility] (DEFAULT) [address] [place] [address] Ketones Ql (U) TRACE Normal [facility] Comment on above: Performed By: #### 1 [id number] #### [facility] (DEFAULT) [address] [place] [address] UA Bilirubin Negative Normal [facility] Comment on above: Performed By: #### 1 [id number] #### [facility] (DEFAULT) [address] [place] [address] UA Blood Negative Normal NEGATIVE [facility] Comment on above: Performed By: #### 1 [id number] #### [facility] (DEFAULT) [address] [place] [address] UA Clarity CLEAR Normal CLEAR [facility] Comment on above: Performed By: #### 1 [id number] #### [facility] (DEFAULT) [address] [place] [address] UA Leuk Est Negative Normal NEGATIVE [facility] Comment on above: Performed By: #### 1 [id number] #### [facility] (DEFAULT) [address] [place] [address] UA Nitrite Negative Normal NEGATIVE [facility] Comment on above: Performed By: #### 1 [id number] #### [facility] (DEFAULT) [address] [place] [address] UA pH 6.0 Normal 5-8 [facility] Comment on above: Performed By: #### 1 [id number] #### [facility] (DEFAULT) [address] [place] [address] UA Protein 100 Abnormal NEGATIVE [facility] Comment on above: Performed By: #### 1 [id number] #### [facility] (DEFAULT) [address] [place] [address] UA Spec Grav >=1.030 Normal 1.001-1.035 [facility] Comment on above: Performed By: #### 1 [id number] #### [facility] (DEFAULT) [address] [place] [address] [place] [address] UA Urobilinogen 0.2 mg/dL Normal 0.2-1.0 [facility] Comment on above: Performed By: #### 1 [id number] #### [facility] (DEFAULT) [address] [place] [address] Urine Source Clean Catch Normal [facility] Comment on above: Performed By: #### 1 [id number] #### [facility] (DEFAULT) [address] [place] [id number] Urgent Care Note- Provideron 09-26-2023 Urgent Care [...] history): All Problems Hypertension / SNOMED CT 9197738065 / Confirmed GERD (gastroesophageal reflux disease) / SNOMED CT 879090325 / Confirmed Diabetes / SNOMED CT 004054501 / Confirmed Objective CONST: -Obese -Acute distress: [...] Plan Assessment and Plan: Diagnosis: Physical exam ([id number] Z00.00). Orders Orders Patient Care: Glucose POC [...] 4 months ago. 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 Patient also shows a echocardiogram from 1 week ago that shows an ejection fraction of 35%. Patient's recent INR's are not in range of 2.5-3.5 which is required by mechanical heart valve. I discussed this with him indicated that he will need a letter releasing him stating he is okay to drive from his director of teaching and learning, I indicated that he needs an echocardiogram [...] on: 09/26/2023 11:04 EDT] POLY KAUR Normal [facility] Recordon 024 Urgent Care Record [facility] ? Urgent Care [address] [place], [place] [id number] PATIENT DISCHARGE INSTRUCTIONS Patient Information Name: NEHAL BAIG Age: 52 Years Date of : 1970 Reason For Visit: DOT PHYSICAL Arrival Time: 09/26/2023 09:05:07 Primary Care Physician: DEMETRIUS BERNAL Attending Physician: Joel Bledsoe PA-C Comment: [...] sign any legal documents With: Address: When: DEMETRIUS BERNAL [address] [place] [address] [place] [address] Business () , only if needed Medication Information: The exam and treatment you received today in the [facility] were for an [...] so we can reach you if necessary. [facility] has provided you with a complete list of medications post discharge. 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 junior software engineer/provider of your visit and for further instruction [...] Prevention November 2013 [facility] Abstracton 09-20-2023 Abstract [facility] Follow-Upon 09-19-2023 Follow-Up [facility] 30on 09-06-2023 30 Normal [facility] 30 Normal [facility] BASIC METABOLIC PANELon Anion gap [Moles/Vol] 13 mmol/L Normal 7-20 [facility] Comment on above: Performed By: #### L [id number] ####[facility] [place] [address] Calcium [Mass/Vol] 9.8 mg/dL Normal 8.6-10.3 [facility] Comment on above: Performed By: #### L [id number] ####[facility] [place] [address] Chloride [Moles/Vol] 97 mmol/L Low 98-107 [facility] Comment on above: Performed By: #### L [id number] ####[facility] ([facility])[address] [place] [address] CO2 [Moles/Vol] 31 mmol/L Normal 21-[address] [facility] Comment on above: Performed By: #### L [id number] ####[facility] ([facility])[address] [place] [address] Creatinine [Mass/Vol] 1.03 mg/dL Normal 0.70-1.30 [facility] Comment on above: Performed By: #### L [id number] ####[facility] ([facility])[address] [place] [address] GLOMERULAR FILTRATION RATE ML/MIN/1.73 SQ M.PREDICTED 88.5 mL/min/1.73m*2 Normal >60.0 [facility] Comment on above: Result Comment: The [facility]???s estimated glomerular filtration rate (eGFR) [...] of individuals. Performed By: #### L [id number] ####[facility] ([facility] [place] [address] Glucose [Mass/Vol] 140 mg/dL High 70-100 [facility] Comment on above: Performed By: #### L [id number] ####[facility] ([facility])[address] [place] [address] Potassium [Moles/Vol] 4.6 mmol/L Normal 3.5-5.1 [facility] Comment on above: Performed By: #### L [id number] ####[facility] ([facility])[address] [place] [address] Sodium [Moles/Vol] 136 mmol/L Normal 136-145 [facility] Comment on above: Performed By: #### L [id number] ####[facility] ([facility])[address] [place] [address] Urea nitrogen [Mass/Vol] 17 mg/dL Normal 7-25 [facility] Comment on above: Performed By: #### L [id number] ####[facility] ([facility])[address] [place] [address] UREA NITROGEN/CREATININE (MASS RATIO) IN SER/PLAS 16.5 Normal [facility] Comment on above: Performed By: #### L [id number] ####[facility] ([facility])[address] [place] [address] CBCon 09-06-2023 Erythrocyte distribution width (RBC) [Ratio] 15.3 % High 11.5-15.0 [facility] Comment on above: Performed By: #### L [id number] ####[facility] ([facility])[address] [place] [address] ERYTHROCYTE MEAN CORPUSCULAR HEMOGLOBIN CONCENTRATION (G/DL) BY AUTOMATED 29.9 g/dL Low 32.0-35.0 [facility] Comment on above: Performed By: #### L [id number] ####[facility] ([facility])[address] [place] [address] Hematocrit (Bld) [Volume fraction] 40.1 % Normal 39.0-55.0 [facility] Comment on above: Performed By: #### L [id number] ####[facility] ([facility])[address] [place] [address] Hemoglobin (Bld) [Mass/Vol] 12.0 g/dL Low 13.0-17.0 [facility] Comment on above: Performed By: #### L [id number] ####[facility] ([facility])[address] [place] [address] MCH (RBC) [Entitic mass] 23.9 pg Low 27.0-33.0 [facility] Comment on above: Performed By: #### L [id number] ####[facility] ([facility])[address] [place] [address] MCV (RBC) [Entitic vol] 79.7 fL Low 82.0-98.0 [facility] Comment on above: Performed By: #### L [id number] ####[facility] ([facility])[address] [place] [address] PLATELETS (10*3/UL) IN BLOOD AUTOMATED COUNT 273 10*3/uL Normal 150-400 [facility] Comment on above: Performed By: #### L [id number] ####[facility] ([facility])[address] [place] [address] RBC (Bld) [#/Vol] 5.03 10*6/uL Normal 4.20-5.70 [facility] Comment on above: Performed By: #### L [id number] ####[facility] ([facility])[address] [place] [address] WBC (Bld) [#/Vol] 6.25 10*3/uL Normal 4.00-10.60 [facility] Comment on above: Performed By: #### L [id number] ####[facility] ([facility])[address] [place] [address] DSon 09-06-2023 DS Normal [facility] MAGNESIUMon 09-06-2023 Magnesium [Mass/Vol] 2.1 mg/dL Normal 1.9-2.7 [facility] Comment on above: Performed By: #### L [id number] ####[facility] ([facility])[address] [place] [address] PHOSPHORUSon 09-06-2023 Magnesium [Mass/Vol] 5.0 mg/dL Normal 2.5-5.0 [facility] Comment on above: Performed By: #### L [id number] ####[facility] ([facility])[address] [place] [address] PROTIME-INRon 09-06-2023 INR IN PPP BY COAGULATION ASSAY 1.58 High 0.90-1.10 [facility] Comment on above: Result [...] CHEST 1995;108:231S-246S. Performed By: #### L [id number] ####[facility] ([facility])[address] [place] [address] PROTHROMBIN TIME (PT) IN PPP BY COAGULATION ASSAY 18.7 Seconds High 12.3-14.8 [facility] Comment on above: Performed By: #### L [id number] ####[facility] ([facility])[address] [place] [address] 30on 09-05-2023 30 Normal [facility] 30 Normal [facility] BASIC METABOLIC PANELon 06- Anion gap [Moles/Vol] 12 mmol/L Normal 7-20 [facility] Comment on above: Performed By: #### L [id number] ####[facility] ([facility])[address] [place] [address] Calcium [Mass/Vol] 9.5 mg/dL Normal 8.6-10.3 [facility] Comment on above: Performed By: #### L [id number] ####[facility] ([facility])[address] [place], [place] [address] Chloride [Moles/Vol] 96 mmol/L Low 98-107 [facility] Comment on above: Performed By: #### L [id number] ####[facility] ([facility])[address] [place] [address] CO2 [Moles/Vol] 32 mmol/L High 21-[address] [facility] Comment on above: Performed By: #### L [id number] ####[facility] ([facility])[address] [place] [address] Creatinine [Mass/Vol] 0.96 mg/dL Normal 0.70-1.30 [facility] Comment on above: Performed By: #### L [id number] ####[facility] ([facility])[address] [place] [address] GLOMERULAR FILTRATION RATE ML/MIN/1.73 SQ M.PREDICTED 96.3 mL/min/1.73m*2 Normal >60.0 [facility] Comment on above: Result Comment: The [facility]???s estimated glomerular filtration rate (eGFR) [...] of individuals. Performed By: #### L [id number] ####[facility] ([facility])[address] [facility] [address] Glucose [Mass/Vol] 102 mg/dL High 70-100 [facility] Comment on above: Performed By: #### L [id number] ####[facility] ([facility])[address] [facility] [place] [address] Potassium [Moles/Vol] 4.6 mmol/L Normal 3.5-5.1 [facility] Comment on above: Performed By: #### L [id number] ####[facility] ([facility])[address] [facility] [place] [address] Sodium [Moles/Vol] 135 mmol/L Low 136-145 [facility] Comment on above: Performed By: #### L [id number] ####[facility] ([facility])[address] [facility] [place] [address] Urea nitrogen [Mass/Vol] 15 mg/dL Normal 7-25 [facility] Comment on above: Performed By: #### L [id number] ####[facility] ([facility])[address] [facility] [place] [address] UREA NITROGEN/CREATININE (MASS RATIO) IN SER/PLAS 15.6 Normal [facility] Comment on above: Performed By: #### L [id number] ####[facility] ([facility])[address] [facility] [address] CBCon 09-05-2023 Erythrocyte distribution width (RBC) [Ratio] 15.5 % High 11.5-15.0 [facility] Comment on above: Performed By: #### L [id number] ####[facility] ([facility])[address] [facility] [place] [address] ERYTHROCYTE MEAN CORPUSCULAR HEMOGLOBIN CONCENTRATION (G/DL) BY AUTOMATED 30.5 g/dL Low 32.0-35.0 [facility] Comment on above: Performed By: #### L [id number] ####[facility] ([facility] [place] [address] Hematocrit (Bld) [Volume fraction] 38.0 % Low 39.0-55.0 [facility] Comment on above: Performed By: #### L [id number] ####[facility] ([facility])[address] [place] [address] Hemoglobin (Bld) [Mass/Vol] 11.6 g/dL Low 13.0-17.0 [facility] Comment on above: Performed By: #### L [id number] ####[facility] ([facility])[address] [place] [address] MCH (RBC) [Entitic mass] 23.9 pg Low 27.0-33.0 [facility] Comment on above: Performed By: #### L [id number] ####[facility] ([facility])[address] [place] [address] MCV (RBC) [Entitic vol] 78.4 fL Low 82.0-98.0 [facility] Comment on above: Performed By: #### L [id number] ####[facility] ([facility])[address] [place] [address] PLATELETS (10*3/UL) IN BLOOD AUTOMATED COUNT 247 10*3/uL Normal 150-400 [facility] Comment on above: Performed By: #### L [id number] ####[facility] ([facility])[address] [place] [address] RBC (Bld) [#/Vol] 4.85 10*6/uL Normal 4.20-5.70 [facility] Comment on above: Performed By: #### L [id number] ####[facility] ([facility])[address] [place], [place] [address] WBC (Bld) [#/Vol] 6.30 10*3/uL Normal 4.00-10.60 [facility] Comment on above: Performed By: #### L [id number] ####[facility] ([facility])[address] [place] [address] MAGNESIUMon 09-05-2023 Magnesium [Mass/Vol] 2.0 mg/dL Normal 1.9-2.7 [facility] Comment on above: Performed By: #### L [id number] ####[facility] ([facility])[address] [place] [address] PHOSPHORUSon 09-05-2023 Magnesium [Mass/Vol] 5.2 mg/dL High 2.5-5.0 [facility] Comment on above: Performed By: #### L [id number] ####[facility] ([facility])[address] [place] [address] PROTIME-INRon 09-05-2023 INR IN PPP BY COAGULATION ASSAY 1.64 High 0.90-1.10 [facility] Comment on above: Result [...] CHEST 1995;108:231S-246S. Performed By: #### L [id number] ####[facility] ([facility])[address] [place] [address] PROTHROMBIN TIME (PT) IN PPP BY COAGULATION ASSAY 19.2 Seconds High 12.3-14.8 [facility] Comment on above: Performed By: #### L [id number] ####[facility] ([facility])[address] [place] [address] 30on 09-04-2023 30 Normal [facility] 30 Normal [facility] BASIC METABOLIC PANELon 06-0 Anion gap [Moles/Vol] 12 mmol/L Normal 7-20 [facility] Comment on above: Performed By: #### L [id number] ####[facility] ([facility])[address] [place] [address] Calcium [Mass/Vol] 9.1 mg/dL Normal 8.6-10.3 [facility] Comment on above: Performed By: #### L [id number] ####[facility] ([facility])[address] [place] [address] Chloride [Moles/Vol] 96 mmol/L Low 98-107 [facility] Comment on above: Performed By: #### L [id number] ####[facility] ([facility])[address] [place] [address] CO2 [Moles/Vol] 30 mmol/L Normal 21-[address] [facility] Comment on above: Performed By: #### L [id number] ####[facility] ([facility])[address] [place] [address] Creatinine [Mass/Vol] 0.88 mg/dL Normal 0.70-1.30 [facility] Comment on above: Performed By: #### L [id number] ####[facility] ([facility])[address] [place] [address] GLOMERULAR FILTRATION RATE ML/MIN/1.73 SQ M.PREDICTED 104.8 mL/min/1.73m*2 Normal >60.0 [facility] Comment on above: Result Comment: The [facility]???s estimated glomerular filtration rate (eGFR) [...] of individuals. Performed By: #### L [id number] ####[facility] ([facility] [place] [address] Glucose [Mass/Vol] 93 mg/dL Normal 70-100 [facility] Comment on above: Performed By: #### L [id number] ####[facility] ([facility] [place] [address] Potassium [Moles/Vol] 4.0 mmol/L Normal 3.5-5.1 [facility] Comment on above: Performed By: #### L [id number] ####[facility] ([facility] [place] [address] Sodium [Moles/Vol] 134 mmol/L Low 136-145 [facility] Comment on above: Performed By: #### L [id number] ####[facility] ([facility] [facility] [facility] [address] Urea nitrogen [Mass/Vol] 16 mg/dL Normal 7-25 [facility] Comment on above: Performed By: #### L [id number] ####[facility] ([facility])[address] [place] [address] UREA NITROGEN/CREATININE (MASS RATIO) IN SER/PLAS 18.2 Normal [facility] Comment on above: Performed By: #### L [id number] ####[facility] ([facility])[address] [place] [address] CBCon 09-04-2023 Erythrocyte distribution width (RBC) [Ratio] 15.7 % High 11.5-15.0 [facility] Comment on above: Performed By: #### L [id number] ####[facility] ([facility])[address] [facility] [facility] [address] ERYTHROCYTE MEAN CORPUSCULAR HEMOGLOBIN CONCENTRATION (G/DL) BY AUTOMATED 31.0 g/dL Low 32.0-35.0 [facility] Comment on above: Performed By: #### L [id number] ####[facility] ([facility])[address] [place] [address] Hematocrit (Bld) [Volume fraction] 34.5 % Low 39.0-55.0 [facility] Comment on above: Performed By: #### L [id number] ####[facility] ([facility])[address] [place] [address] Hemoglobin (Bld) [Mass/Vol] 10.7 g/dL Low 13.0-17.0 [facility] Comment on above: Performed By: #### L [id number] ####[facility] ([facility])[address] [place] [address] MCH (RBC) [Entitic mass] 24.4 pg Low 27.0-33.0 [facility] Comment on above: Performed By: #### L [id number] ####[facility] ([facility])[address] [place] [address] MCV (RBC) [Entitic vol] 78.8 fL Low 82.0-98.0 [facility] Comment on above: Performed By: #### L [id number] ####[facility] ([facility])[address] [place] [address] PLATELETS (10*3/UL) IN BLOOD AUTOMATED COUNT 221 10*3/uL Normal 150-400 [facility] Comment on above: Performed By: #### L [id number] ####[facility] ([facility])[address] [place] [address] RBC (Bld) [#/Vol] 4.38 10*6/uL Normal 4.20-5.70 [facility] Comment on above: Performed By: #### L [id number] ####[facility] ([facility] [place] [address] WBC (Bld) [#/Vol] 9.37 10*3/uL Normal 4.00-10.60 [facility] Comment on above: Performed By: #### L [id number] ####[facility] ([facility])[address] [place] [address] MAGNESIUMon 09-04-2023 Magnesium [Mass/Vol] 1.8 mg/dL Low 1.9-2.7 [facility] Comment on above: Performed By: #### L [id number] ####[facility] ([facility])[address] [place] [address] PHOSPHORUSon 09-04-2023 Magnesium [Mass/Vol] 4.4 mg/dL Normal 2.5-5.0 [facility] Comment on above: Performed By: #### L [id number] ####[facility] ([facility])[address] [place] [address] PROTIME-INRon 09-04-2023 INR IN PPP BY COAGULATION ASSAY 1.60 High 0.90-1.10 [facility] Comment on above: Result [...] CHEST 1995;108:231S-246S. Performed By: #### L [id number] ####[facility] [place] [address] PROTHROMBIN TIME (PT) IN PPP BY COAGULATION ASSAY 18.8 Seconds High 12.3-14.8 [facility] Comment on above: Performed By: #### L [id number] ####[facility] ([facility])[address] [place] [address] 30on 09-03-2023 30 Normal [facility] 30 Normal [facility] ANESon 09-03-2023 ANES Normal [facility] APTTon 09-03-2023 ACTIVATED PARTIAL THROMBOPLASTIN TIME IN PPP BY COAGULATION ASSAY 32.6 Seconds Normal 25.0-35.0 [facility] Comment on above: Result Comment: Clin ical significance of the APTT is questionable in the presence of heparin. Performed By: #### L [id number] ####[facility] ([facility])[address] [place] [address] BASIC METABOLIC PANELon Anion gap [Moles/Vol] 11 mmol/L Normal 7-20 [facility] Comment on above: Performed By: #### L [id number] ####[facility] ([facility])[address] [place] [address] Calcium [Mass/Vol] 9.2 mg/dL Normal 8.6-10.3 [facility] Comment on above: Performed By: #### L [id number] ####[facility] ([facility] [place] [address] Chloride [Moles/Vol] 100 mmol/L Normal 98-107 [facility] Comment on above: Performed By: #### L [id number] ####[facility] ([facility])[address] [place] [address] CO2 [Moles/Vol] 29 mmol/L Normal 21-[address] [facility] Comment on above: Performed By: #### L [id number] ####[facility] ([facility])[address] [place] [address] Creatinine [Mass/Vol] 1.11 mg/dL Normal 0.70-1.30 [facility] Comment on above: Performed By: #### L [id number] ####[facility] ([facility])[address] [place] [address] GLOMERULAR FILTRATION RATE ML/MIN/1.73 SQ M.PREDICTED 80.9 mL/min/1.73m*2 Normal >60.0 [facility] Comment on above: Result Comment: The [facility]???s estimated glomerular filtration rate (eGFR) [...] of individuals. Performed By: #### L [id number] ####[facility] ([facility])[address] [place] [address] Glucose [Mass/Vol] 119 mg/dL High 70-100 [facility] Comment on above: Performed By: #### L [id number] ####[facility] ([facility])[address] [place] [address] Potassium [Moles/Vol] 4.3 mmol/L Normal 3.5-5.1 [facility] Comment on above: Performed By: #### L [id number] ####[facility] ([facility])[address] [place] [address] Sodium [Moles/Vol] 136 mmol/L Normal 136-145 [facility] Comment on above: Performed By: #### L [id number] ####[facility] ([facility])[address] [facility] [address] Urea nitrogen [Mass/Vol] 22 mg/dL Normal 7-25 [facility] Comment on above: Performed By: #### L [id number] ####[facility] ([facility])[address] [place] [address] UREA NITROGEN/CREATININE (MASS RATIO) IN SER/PLAS 19.8 Normal [facility] Comment on above: Performed By: #### L [id number] ####[facility] [place] [address] Anion gap [Moles/Vol] 11 mmol/L Normal 7-20 [facility] Comment on above: Performed By: #### L [id number] ####[facility] ([facility])[address] [place] [address] Calcium [Mass/Vol] 9.1 mg/dL Normal 8.6-10.3 [facility] Comment on above: Performed By: #### L [id number] ####[facility] ([facility])[address] [place] [address] Chloride [Moles/Vol] 98 mmol/L Normal 98-107 [facility] Comment on above: Performed By: #### L [id number] ####[facility] ([facility])[address] [place] [address] CO2 [Moles/Vol] 30 mmol/L Normal 21-[address] [facility] Comment on above: Performed By: #### L [id number] ####[facility] CENTER)[address] [place] [address] Creatinine [Mass/Vol] 1.25 mg/dL Normal 0.70-1.30 [facility] Comment on above: Performed By: #### L [id number] ####[facility] ([facility])[address] [place] [address] GLOMERULAR FILTRATION RATE ML/MIN/1.73 SQ M.PREDICTED 70.2 mL/min/1.73m*2 Normal >60.0 [facility] Comment on above: Result Comment: The [facility]???s estimated glomerular filtration rate (eGFR) [...] of individuals. Performed By: #### L [id number] ####[facility] ([facility])[address] [place] [address] Glucose [Mass/Vol] 105 mg/dL High 70-100 [facility] Comment on above: Performed By: #### L [id number] ####[facility] ([facility])[address] [place] [address] Potassium [Moles/Vol] 4.2 mmol/L Normal 3.5-5.1 [facility] Comment on above: Performed By: #### L [id number] ####[facility] ([facility])[address] [place] [address] Sodium [Moles/Vol] 135 mmol/L Low 136-145 [facility] Comment on above: Performed By: #### L [id number] ####[facility] ([facility])[address] [place] [address] Urea nitrogen [Mass/Vol] 22 mg/dL Normal 7-25 [facility] Comment on above: Performed By: #### L [id number] ####[facility] ([facility])[address] [place] [address] UREA NITROGEN/CREATININE (MASS RATIO) IN SER/PLAS 17.6 Normal [facility] Comment on above: Performed By: #### L [id number] ####[facility] ([facility])[address] [place] [address] BLOOD CULTUREon 09-03-2023 Bacteria identified Cx Nom (Bld) No growth at 5 days [facility] Comment on above: Order Comment: From a different site than #1. Performed By: #### L [id number] ####[facility] ([facility])[address] [place] [address] Order Comment: Place d Back on Insturment BODY FLUID CELL DIFFERENTIAL on 06-04-2024 BASOPHILS TOTAL PER COUNTED LEUKOCYTES IN BODY FLUID BY MANUAL COUNT 2 [facility] Comment on above: Order Comment: Diffe rential performed on cytospin Performed By: #### L [id number] ####[facility] ([facility])[address] [place] [address] CELLS COUNTED TOTAL (#) IN BODY FLUID 100 [facility] Comment on above: Order Comment: Diffe rential performed on cytospin Performed By: #### L [id number] ####[facility] ([facility])[address] [place] [address] EOSINOPHILS TOTAL PER COUNTED LEUKOCYTES IN BODY FLUID BY MANUAL COUNT 3 [facility] Comment on above: Order Comment: Diffe rential performed on cytospin Performed By: #### L [id number] ####[facility] ([facility])[address] [place] [address] LYMPHOCYTES TOTAL PER COUNTED LEUKOCYTES IN BODY FLUID BY MANUAL COUNT 53 [facility] Comment on above: Order Comment: Diffe rential performed on cytospin Performed By: #### L [id number] ####[facility] ([facility])[address] [place] [address] MESOTHELIAL CELLS TOTAL PER COUNTED LEUKOCYTES IN BODY FLUID BY MANUAL COUN 1 [facility] Comment on above: Order Comment: Diffe rential performed on cytospin Performed By: #### L [id number] ####[facility] ([facility])[address] [place] [address] MONOCYTES+MACROPHAGE S TOTAL PER COUNTED LEUKOCYTES IN BODY FLUID BY MANUAL 0 [facility] Comment on above: Order Comment: Diffe rential performed on cytospin Performed By: #### L [id number] ####[facility] ([facility])[address] [place] [address] NEUTROPHILS TOTAL PER COUNTED LEUKOCYTES IN BODY FLUID BY MANUAL COUNT 41 [facility] Comment on above: Order Comment: Diffe rential performed on cytospin Performed By: #### L [id number] ####[facility] ([facility])[address] [place] [address] OTHER CELLS BODY FLUID (MANUAL) 0 [facility] Comment on above: Order Comment: Samara sheth performed on cytospin Performed By: #### L [id number] ####[facility] ([facility])[address] [place] [address] BODY FLUID CULTUREon 024 Bacteria identified Cx Nom (Unsp spec) No growth at 5 days Normal [facility] Comment on above: Performed By: #### L [id number] ####[facility] ([facility])[address] [place] [address] GRAM STAIN RESULT Normal [facility] Comment on above: Result Comment: Poly morphonuclear leukocytesNo organisms seen Performed By: #### L [id number] ####[facility] ([facility])[address] [place] [address] C-REACTIVE PROTEINon 024 C REACTIVE PROTEIN (MG/L) IN SER/PLAS 20.7 mg/L High 0.0-7.0 [facility] Comment on above: Performed By: #### L [id number] ####[facility] ([facility])[address] [place] [address] CBCon 09-03-2023 Erythrocyte distribution width (RBC) [Ratio] 15.4 % High 11.5-15.0 [facility] Comment on above: Performed By: #### L [id number] ####[facility] ([facility])[address] [place] [address] ERYTHROCYTE MEAN CORPUSCULAR HEMOGLOBIN CONCENTRATION (G/DL) BY AUTOMATED 30.5 g/dL Low 32.0-35.0 [facility] Comment on above: Performed By: #### L [id number] ####[facility] ([facility])[address] [place] [address] Hematocrit (Bld) [Volume fraction] 36.4 % Low 39.0-55.0 [facility] Comment on above: Performed By: #### L [id number] ####[facility] ([facility])[address] [place] [address] Hemoglobin (Bld) [Mass/Vol] 11.1 g/dL Low 13.0-17.0 [facility] Comment on above: Performed By: #### L [id number] ####[facility] ([facility]ER)[address] [place] [address] MCH (RBC) [Entitic mass] 24.7 pg Low 27.0-33.0 [facility] Comment on above: Performed By: #### L [id number] ####[facility], [place] [address] MCV (RBC) [Entitic vol] 81.1 fL Low 82.0-98.0 [facility] Comment on above: Performed By: #### L [id number] ####[facility] ([facility], [place] [address] PLATELETS (10*3/UL) IN BLOOD AUTOMATED COUNT 228 10*3/uL Normal 150-400 [facility] Comment on above: Performed By: #### L [id number] ####[facility] ([facility])[address] [place] [address] RBC (Bld) [#/Vol] 4.49 10*6/uL Normal 4.20-5.70 [facility] Comment on above: Performed By: #### L [id number] ####[facility] [place] [address] WBC (Bld) [#/Vol] 9.94 10*3/uL Normal 4.00-10.60 [facility] Comment on above: Performed By: #### L [id number] ####[facility] ([facility])[address] [place] [address] Erythrocyte distribution width (RBC) [Ratio] 15.6 % High 11.5-15.0 [facility] Comment on above: Performed By: #### L [id number] ####[facility] ([facility]AK[facility])[address] [place] [address] ERYTHROCYTE MEAN CORPUSCULAR HEMOGLOBIN CONCENTRATION (G/DL) BY AUTOMATED 30.1 g/dL Low 32.0-35.0 [facility] Comment on above: Performed By: #### L [id number] ####[facility] ([facility])[address] [place] [address] Hematocrit (Bld) [Volume fraction] 36.5 % Low 39.0-55.0 [facility] Comment on above: Performed By: #### L [id number] ####[facility] ([facility])[address] [place] [address] Hemoglobin (Bld) [Mass/Vol] 11.0 g/dL Low 13.0-17.0 [facility] Comment on above: Performed By: #### L [id number] ####[facility] ([facility])[address] [place] [address] MCH (RBC) [Entitic mass] 24.0 pg Low 27.0-33.0 [facility] Comment on above: Performed By: #### L [id number] ####[facility] ([facility])[address] [place] [address] MCV (RBC) [Entitic vol] 79.7 fL Low 82.0-98.0 [facility] Comment on above: Performed By: #### L [id number] ####[facility] ([facility])[address] [place] [address] PLATELETS (10*3/UL) IN BLOOD AUTOMATED COUNT 238 10*3/uL Normal 150-400 [facility] Comment on above: Performed By: #### L [id number] ####[facility] ([facility])[address] [place] [address] RBC (Bld) [#/Vol] 4.58 10*6/uL Normal 4.20-5.70 [facility] Comment on above: Performed By: #### L [id number] ####[facility] ([facility])[address] [place] [address] WBC (Bld) [#/Vol] 10.35 10*3/uL Normal 4.00-10.60 [facility] Comment on above: Performed By: #### L [id number] ####[facility] ([facility])[address] [place] [address] CONSULTon 09-03-2023 CONSULT Normal [facility] GLUCOSE, BODY FLUIDon 2023 GLUCOSE (MG/DL) IN BODY FLUID 33 mg/dL Normal [facility] Comment on above: Result Comment: The reference range and other method performance specifications have not been established for this test in fluids. the test result should be integrated into the clinical context for interpretation. Performed By: #### L [id number] ####[facility] ([facility])[address] [place] [address] HPon 09-03-2023 HP Normal [facility] HP Normal [facility] LACTATE DEHYDROGENASE, BODY FLUIDon 09-03-2023 LACTATE DEHYDROGENASE (U/L) IN BODY FLUID BY LAC->PYR 1022 U/L [facility] Comment on above: Result Comment: The reference range and other method performance specifications have not been established for this test in fluids. the test result should be integrated into the clinical context for interpretation. Performed By: #### L [id number] ####[facility] ([facility])[address] [place] [address] MAGNESIUMon 09-03-2023 Magnesium [Mass/Vol] 2.0 mg/dL Normal 1.9-2.7 [facility] Comment on above: Performed By: #### L [id number] ####[facility] ([facility])[address] [place] [address] Magnesium [Mass/Vol] 1.8 mg/dL Low 1.9-2.7 [facility] Comment on above: Performed By: #### L [id number] ####[facility] ([facility])[address] [place] [address] NON-CARPET SEWING MACHINE OPERATOR CYTOLOGY - CELLULAR EXAMon 09-03-2023 LAB AP CASE REPORT Normal [facility] Comment on above: Result Comment: Non- gynecologic Cytology Case: [id number] Provider: Art George MD Collected: 09/03/2023 1415Ordering Location: [facility] Received: 09/04/2023 0654Pathologist: LILIA Gutierrezpecimen: Pericardial Fluid Performed By: #### L [id number] ####[facility] (BEAKER)[address] [place] [address] LAB AP CLINICAL INFORMATION [facility] Comment on above: Result Comment: Post -Op DiagnosesNo Dx found. Performed By: #### L [id number] ####[facility] (BEAKER)[address] [place] [address] LAB AP GROSS DESCRIPTION [facility] Comment on above: Result Comment: 900 mL opaque, dark red fluid. Performed By: #### L [id number] ####[facility] (BEAKER)[address] [place] [address] LAB AP REPORT FINAL DIAGNOSIS NARRATIVE [facility] Comment on above: Result Comment: A. P ericardial Fluid: - Negative for malignancy Performed By: #### L [id number] ####[facility] ([facility])[address] [place] [address] PATHOLOGY REVIEWon PATHOLOGY REVIEW Reviewed. Normal [facility] Comment on above: Result Comment: Elec tronically signed by Brenton Sorensen MD on 09/04/23 at 8:43 AM. Performed By: #### L [id number] ####[facility] ([facility])[address] [place] [address] PHOSPHORUSon 09-03-2023 Magnesium [Mass/Vol] 4.5 mg/dL Normal 2.5-5.0 [facility] Comment on above: Performed By: #### L [id number] ####[facility] ([facility])[address] [place] [address] Magnesium [Mass/Vol] 4.3 mg/dL Normal 2.5-5.0 [facility] Comment on above: Performed By: #### L [id number] ####[facility] ([facility])[address] [place] [address] PROTEIN, BODY FLUIDon 2023 Protein (Body fld) [Mass/Vol] 5.0 g/dL Normal [facility] Comment on above: Result Comment: The reference range and other method performance specifications have not been established for this test in fluids. the test result should be integrated into the clinical context for interpretation. Performed By: #### L [id number] ####[facility] ([facility])[address] [place] [address] PROTIME-INRon 09-03-2023 INR IN PPP BY COAGULATION ASSAY 1.61 High 0.90-1.10 [facility] Comment on above: Result [...] CHEST 1995;108:231S-246S. Performed By: #### L [id number] ####[facility] ([facility])[address] [place] [address] PROTHROMBIN TIME (PT) IN PPP BY COAGULATION ASSAY 19.0 Seconds High 12.3-14.8 [facility] Comment on above: Performed By: #### L [id number] ####[facility] ([facility])[address] [place] [address] INR IN PPP BY COAGULATION ASSAY 1.57 High 0.90-1.10 [facility] Comment on above: Result [...] CHEST 1995;108:231S-246S. Performed By: #### L [id number] ####[facility] [employer] [facility])[address] [place] [address] PROTHROMBIN TIME (PT) IN PPP BY COAGULATION ASSAY 18.6 Seconds High 12.3-14.8 [facility] Comment on above: Performed By: #### L [id number] ####[facility] (BEAKER)[address] [place] [address] TYPE AND SCREENon 09-03-2023 AB SCREEN Negative Normal [facility] Comment on above: Performed By: #### L [id number] ####[facility], ABO group Nom (Bld) A Normal [facility] Comment on above: Performed By: #### L [id number] ####[facility], RH TYPE IN BLOOD Negative Normal [facility] Comment on above: Performed By: #### L [id number] ####[facility], 36on 08-30-2023 36 Order faxed. [facility] o f [facility] 3608-28-2023 36 [facility] Family Medicine Office/Clini c Noteon 08-28-2023 Family Medicine Office/Clinic Note HPI Staff Nehal is a 52 year old male presenting to establish care Establish Care: History: Any previous diagnosis: HTN, Heel spurs Asthma, Depression, headaches, headaches, migraines, kidney stones, AJCOBY History of seeing any specialist: Dr cowan ortho When was your last doctors visit: Last provider: Dr Aguillon Any recent labs: [facility] around 8 months ago Flu: refused Health Maintenance UTD: Colonoscopy: 2021 PSA: unsure if it has ever been checked Acute: Current issues/complaints: Pt has sleep study done and uses machine would like cpap supplies sent to [employer] in [place] pt does wear full mask- Resmed Air Touch F20 machine is [employer] Needs refill on lisinopril fYI: pt is seeing Neurology referral was sent through [employer]. 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 pt will have them done at [facility] on Saturday. Ordered: Misc Prescription, Full [...] will send order to medical supplies in [place] Ordered: Misc Prescription, Full Mask Resmed Air [...] # 90 tab(s), Refills(s) 3, Pharmacy: [facility]/pharmacy #[id number], 185.5, cm, 01/09/23 16:37:00 EDT, Height/Length Dosing, 174.3, kg, 01/09/23 16:37:00 EDT, Weight Dosing Follow-up No qualifying data (more content not included)... Normal [facility] Comment on above: Result Comment: Elec tronically Signed By: Yolanda SOTELO, Vonnie Estrada\.br\Date and Time Signed: 08/28/23 09:59 EDT Telephoneon 08-27-2023 Telephone Normal [facility] 36on 08-14-2023 36 Normal [facility] Orders Onlyon 08-12-2023 Orders Only Normal [facility] Orders Onlyon 08-08-2023 Orders Only Normal [facility] 37on 08-07-2023 37 Continue to monitor for signs and symptoms of infection including fever, chills, shortness of breath, chest pain, abdominal pain, nausea, vomiting and diarrhea. Call our office if you notice any of these or go to the ED if needing to Normal [facility] BASIC METABOLIC PANELon 05-0 Anion gap [Moles/Vol] 11 mmol/L Normal 7-20 [facility] Comment on above: Performed By: #### L [id number] ####[facility] (BEAKER)[address] [place] [address] Calcium [Mass/Vol] 9.1 mg/dL Normal 8.6-10.3 [facility] Comment on above: Performed By: #### L [id number] ####[facility] (BEAKER)[address] [place] [address] Chloride [Moles/Vol] 101 mmol/L Normal 98-107 [facility] Comment on above: Performed By: #### L [id number] ####[facility] ([facility] [place] [address] CO2 [Moles/Vol] 31 mmol/L Normal 21-[address] [facility] Comment on above: Performed By: #### L [id number] ####[facility] ([facility] [place] [address] Creatinine [Mass/Vol] 0.93 mg/dL Normal 0.70-1.30 [facility] Comment on above: Performed By: #### L [id number] ####[facility] ([facility])[address] [place] [address] GLOMERULAR FILTRATION RATE ML/MIN/1.73 SQ M.PREDICTED 100.0 mL/min/1.73m*2 Normal >60.0 [facility] Comment on above: Result Comment: The [facility]???s estimated glomerular filtration rate (eGFR) [...] of individuals. Performed By: #### L [id number] ####[facility] ([facility] [place] [address] Glucose [Mass/Vol] 91 mg/dL Normal 70-100 [facility] Comment on above: Performed By: #### L [id number] ####[facility] ([facility] [place] [address] Potassium [Moles/Vol] 4.3 mmol/L Normal 3.5-5.1 [facility] Comment on above: Performed By: #### L [id number] ####[facility] ([facility])[address] [place] [address] Sodium [Moles/Vol] 139 mmol/L Normal 136-145 [facility] Comment on above: Performed By: #### L [id number] ####[facility] ([facility])[address] [place] [address] Urea nitrogen [Mass/Vol] 8 mg/dL Normal 7-25 [facility] Comment on above: Performed By: #### L [id number] ####[facility] ([facility])[address] [place] [address] UREA NITROGEN/CREATININE (MASS RATIO) IN SER/PLAS 8.6 Normal [facility] Comment on above: Performed By: #### L [id number] ####[facility] ([facility])[address] [place] [address] C-REACTIVE PROTEINon 024 C REACTIVE PROTEIN (MG/L) IN SER/PLAS 21.4 mg/L High 0.0-7.0 [facility] Comment on above: Performed By: #### L [id number] ####[facility] ([facility])[address] [place] [address] Follow-Upon 08-07-2023 Follow-Up Normal [facility] Labon 08-07-2023 Lab Normal [facility] SEDIMENTATION RATEon 024 SEDIMENTATION RATE, ERYTHROCYTE 49 mm/hr High <=10 [facility] Comment on above: Performed By: #### L [id number] ####[facility] ([facility] [place] [address] Orders Onlyon 08-05-2023 Orders Only Normal [facility] 36on 07-25-2023 36 Phoned Coumadin clin ic regarding patients recent INR of 1.87. Spoke with RN regarding valve parameters for INR of 2.0-2.5 for first three months post op. RN noted that the patients coumadin would be adjusted to meet the therapeutic range. [facility] Documentationon 07-23-2023 Documentation [facility] 37on 07-17-2023 37 [facility] Follow-Upon 07-17-2023 Follow-Up [facility] Refillon 07-17-2023 Refill [facility] 36on 07-11-2023 36 I received a call fr anders Urias stating the patient has been experiencing low BP and lightheadedness. BP: 96/54 So, she is wondering if his Lisinopril can be DC. He is currently still taking the Metoprolol as prescribed. [facility] Telephoneon 07-11-2023 Telephone [facility] 36on 07-08-2023 36 Opat received. Eliu rmed orders with Pina at [facility]. Has an appt w/ Annabella 07/14. [facility] BASIC METABOLIC PANELon Anion gap [Moles/Vol] 12 mmol/L Normal 7-20 [facility] Comment on above: Performed By: #### L [id number] ####[facility] (BEAKER)[address] [place] [address] Calcium [Mass/Vol] 8.7 mg/dL Normal 8.6-10.3 [facility] Comment on above: Performed By: #### L [id number] ####[facility] (BEAKER)[address] [place] [address] Chloride [Moles/Vol] 102 mmol/L Normal 98-107 [facility] Comment on above: Performed By: #### L [id number] ####[facility] (BEAKER)[address] [place] [address] CO2 [Moles/Vol] 25 mmol/L Normal 21-[address] [facility] Comment on above: Performed By: #### L [id number] ####[facility] ([facility])[address] [place] [address] Creatinine [Mass/Vol] 1.02 mg/dL Normal 0.70-1.30 [facility] Comment on above: Performed By: #### L [id number] ####[facility] ([facility])[address] [place] [address] GLOMERULAR FILTRATION RATE ML/MIN/1.73 SQ M.PREDICTED 89.5 mL/min/1.73m*2 Normal >60.0 [facility] Comment on above: Result Comment: The [facility]???s estimated glomerular filtration rate (eGFR) [...] of individuals. Performed By: #### L [id number] ####[facility] ([facility])[address] [place] [address] Glucose [Mass/Vol] 101 mg/dL High 70-100 [facility] Comment on above: Performed By: #### L [id number] ####[facility] ([facility])[address] [place] [address] Potassium [Moles/Vol] 3.9 mmol/L Normal 3.5-5.1 [facility] Comment on above: Performed By: #### L [id number] ####[facility] ([facility])[address] [place] [address] Sodium [Moles/Vol] 135 mmol/L Low 136-145 [facility] Comment on above: Performed By: #### L [id number] ####[facility] ([facility])[address] [place] [address] Urea nitrogen [Mass/Vol] 14 mg/dL Normal 7-25 [facility] Comment on above: Performed By: #### L [id number] ####[facility] ([facility] [place] [address] UREA NITROGEN/CREATININE (MASS RATIO) IN SER/PLAS 13.7 Normal [facility] Comment on above: Performed By: #### L [id number] ####[facility] ([place]))[address] [place] [address] CBCon 07-05-2023 Erythrocyte distribution width (RBC) [Ratio] 15.7 % High 11.5-15.0 [facility] Comment on above: Performed By: #### L [id number] ####[facility] ([facility])[address] [place] [address] ERYTHROCYTE MEAN CORPUSCULAR HEMOGLOBIN CONCENTRATION (G/DL) BY AUTOMATED 31.8 g/dL Low 32.0-35.0 [facility] Comment on above: Performed By: #### L [id number] ####[facility] ([facility] [place] [address] Hematocrit (Bld) [Volume fraction] 26.1 % Low 39.0-55.0 [facility] Comment on above: Performed By: #### L [id number] ####[facility] (BEAKER)[address] [place] [address] Hemoglobin (Bld) [Mass/Vol] 8.3 g/dL Low 13.0-17.0 [facility] Comment on above: Performed By: #### L [id number] ####[facility] (BE[facility]ER)[address] [place] [address] MCH (RBC) [Entitic mass] 28.2 pg Normal 27.0-33.0 [facility] Comment on above: Performed By: #### L [id number] ####[facility] (BE[facility]ER)[address] [place] [address] MCV (RBC) [Entitic vol] 88.8 fL Normal 82.0-98.0 [facility] Comment on above: Performed By: #### L [id number] ####[facility] ([facility])[address] [place] [address] PLATELETS (10*3/UL) IN BLOOD AUTOMATED COUNT 216 10*3/uL Normal 150-400 [facility] Comment on above: Performed By: #### L [id number] ####[facility] ([facility])[address] [place] [address] RBC (Bld) [#/Vol] 2.94 10*6/uL Low 4.20-5.70 [facility] Comment on above: Performed By: #### L [id number] ####[facility] ([facility])[address] [place] [address] WBC (Bld) [#/Vol] 4.87 10*3/uL Normal 4.00-10.60 [facility] Comment on above: Performed By: #### L [id number] ####[facility] ([facility])[address] [place] [address] DSon 07-05-2023 DS Normal [facility] Letter (Out)on 07-05-2023 Letter (Out) Normal [facility] MAGNESIUMon 07-05-2023 Magnesium [Mass/Vol] 1.9 mg/dL Normal 1.9-2.7 [facility] Comment on above: Performed By: #### L [id number] ####[facility] ([facility])[address] [place] [address] POCT GLUCOSE METER UNSOLICIT ED RESULTSon 07-05-2023 Glucose [Mass/Vol] 123 mg/dL High 70-105 [facility] Comment on above: Order Comment: Waive d Testing in the ED is performed under the ED CLIA certificate #[id number]. Result Comment: [email or web address] Performed By: #### L [id number] ####[facility] ([facility])[address] [place] [address] Glucose [Mass/Vol] 112 mg/dL High 70-105 [facility] Comment on above: Order Comment: Waive d Testing in the ED is performed under the ED CLIA certificate #[id number]. Result Comment: [email or web address] Performed By: #### L [id number] ####[facility] (BEAKER)[address] [place] [address] PROTIME-INRon 07-05-2023 INR IN PPP BY COAGULATION ASSAY 2.17 High 0.90-1.10 [facility] Comment on above: Result [...] CHEST 1995;108:231S-246S. Performed By: #### L [id number] ####[facility] (BEAKER)[address] [place] [address] PROTHROMBIN TIME (PT) IN PPP BY COAGULATION ASSAY 24.3 Seconds High 12.3-14.8 [facility] Comment on above: Performed By: #### L [id number] ####[facility] (BEAKER)[address] [place] [address] 30on 07-04-2023 30 Normal [facility] 30 Normal [facility] 30 Normal [facility] ANTI-XA (LOW MOLECULAR WGT H EPARIN LVL)on 07-04-2023 LMW HEPARIN (U/ML) IN PPP BY CHROMOGENIC METHOD 1.00 IU/mL Normal 0.6-1.2 [facility] Comment on above: [...] and LMWH. Performed By: #### L [id number] ####[facility] ([facility])[address] [place] [address] BASIC METABOLIC PANELon Anion gap [Moles/Vol] 10 mmol/L Normal 7-20 [facility] Comment on above: Performed By: #### L [id number] ####[facility] (BEAKER)[address] [place] [address] Calcium [Mass/Vol] 8.6 mg/dL Normal 8.6-10.3 [facility] Comment on above: Performed By: #### L [id number] ####[facility] (BEAKER)[address] [place] [address] Chloride [Moles/Vol] 103 mmol/L Normal 98-107 [facility] Comment on above: Performed By: #### L [id number] ####[facility] (BEAKER)[address] [place] [address] CO2 [Moles/Vol] 28 mmol/L Normal 21-[address] [facility] Comment on above: Performed By: #### L [id number] ####[facility] (BEAKER)[address] [place] [address] Creatinine [Mass/Vol] 1.04 mg/dL Normal 0.70-1.30 [facility] Comment on above: Performed By: #### L [id number] ####[facility] ([facility] [place] [address] GLOMERULAR FILTRATION RATE ML/MIN/1.73 SQ M.PREDICTED 87.5 mL/min/1.73m*2 Normal >60.0 [facility] Comment on above: Result Comment: The [facility]???s estimated glomerular filtration rate (eGFR) [...] of individuals. Performed By: #### L [id number] ####[facility] ([facility])[address] [place] [address] Glucose [Mass/Vol] 91 mg/dL Normal 70-100 [facility] Comment on above: Performed By: #### L [id number] ####[facility] ([facility])[address] [place] [address] Potassium [Moles/Vol] 4.6 mmol/L Normal 3.5-5.1 [facility] Comment on above: Performed By: #### L [id number] ####[facility] ([facility])[address] [place] [address] Sodium [Moles/Vol] 136 mmol/L Normal 136-145 [facility] Comment on above: Performed By: #### L [id number] ####[facility] ([facility])[address] [place] [address] Urea nitrogen [Mass/Vol] 13 mg/dL Normal 7-25 [facility] Comment on above: Performed By: #### L [id number] ####[facility] ([facility])[address] [place] [address] UREA NITROGEN/CREATININE (MASS RATIO) IN SER/PLAS 12.5 Normal [facility] Comment on above: Performed By: #### L [id number] ####[facility] ([facility])[address] [place] [address] CBCon 07-04-2023 Erythrocyte distribution width (RBC) [Ratio] 15.8 % High 11.5-15.0 [facility] Comment on above: Performed By: #### L [id number] ####[facility] ([facility])[address] [place] [address] ERYTHROCYTE MEAN CORPUSCULAR HEMOGLOBIN CONCENTRATION (G/DL) BY AUTOMATED 32.0 g/dL Normal 32.0-35.0 [facility] Comment on above: Performed By: #### L [id number] ####[facility] ([facility])[address] [place] [address] Hematocrit (Bld) [Volume fraction] 24.7 % Low 39.0-55.0 [facility] Comment on above: Performed By: #### L [id number] ####[facility] ([facility])[address] [place] [address] Hemoglobin (Bld) [Mass/Vol] 7.9 g/dL Low 13.0-17.0 [facility] Comment on above: Performed By: #### L [id number] ####[facility] ([facility])[address] [place] [address] MCH (RBC) [Entitic mass] 28.9 pg Normal 27.0-33.0 [facility] Comment on above: Performed By: #### L [id number] ####[facility] ([facility])[address] [place] [address] MCV (RBC) [Entitic vol] 90.5 fL Normal 82.0-98.0 [facility] Comment on above: Performed By: #### L [id number] ####[facility] ([facility])[address] [place] [address] PLATELETS (10*3/UL) IN BLOOD AUTOMATED COUNT 243 10*3/uL Normal 150-400 [facility] Comment on above: Performed By: #### L [id number] ####[facility] ([facility])[address] [place] [address] RBC (Bld) [#/Vol] 2.73 10*6/uL Low 4.20-5.70 [facility] Comment on above: Performed By: #### L [id number] ####[facility] ([facility])[address] [place] [address] WBC (Bld) [#/Vol] 5.14 10*3/uL Normal 4.00-10.60 [facility] Comment on above: Performed By: #### L [id number] ####[facility] ([facility])[address] [place] [address] MAGNESIUMon 07-04-2023 Magnesium [Mass/Vol] 1.9 mg/dL Normal 1.9-2.7 [facility] Comment on above: Performed By: #### L [id number] ####[facility] ([facility])[address] [place] [address] POCT GLUCOSE METER UNSOLICIT ED RESULTSon 07-04-2023 Glucose [Mass/Vol] 112 mg/dL High 70-105 [facility] Comment on above: Order Comment: Waive d Testing in the ED is performed under the ED CLIA certificate #[id number]. Result Comment: [email or web address] Performed By: #### L [id number] ####[facility] ([facility])[address] [place] [address] Glucose [Mass/Vol] 130 mg/dL High 70-105 [facility] Comment on above: Order Comment: Waive d Testing in the ED is performed under the ED CLIA certificate #[id number]. Result Comment: [email or web address] Performed By: #### L [id number] ####[facility] ([facility])[address] [place] [address] Glucose [Mass/Vol] 127 mg/dL High 70-105 [facility] Comment on above: Order Comment: Waive d Testing in the ED is performed under the ED CLIA certificate #[id number]. Result Comment: [email or web address] Performed By: #### L [id number] ####[facility] ([place])[address] [place] [address] Glucose [Mass/Vol] 113 mg/dL High 70-105 [facility] Comment on above: Order Comment: Waive d Testing in the ED is performed under the ED CLIA certificate #[id number]. Result Comment: [email or web address] Performed By: #### L [id number] ####[facility] ([employer])[address] [place] [address] PROTIME-INRon 07-04-2023 INR IN PPP BY COAGULATION ASSAY 1.77 High 0.90-1.10 [facility] Comment on above: Result [...] CHEST 1995;108:231S-246S. Performed By: #### L [id number] ####[facility] ([employer])[address] [place] [address] PROTHROMBIN TIME (PT) IN PPP BY COAGULATION ASSAY 20.7 Seconds High 12.3-14.8 [facility] Comment on above: Performed By: #### L [id number] ####[facility] ([facility])[address] [place] [address] 30on 07-03-2023 30 Normal [facility] ANTI-XA (HEPARIN LEVEL)on HEPARIN UNFRACTIONATED (U/ML) IN PPP BY CHROMOGENIC METHOD 0.12 IU/mL Invalid Interpretation Code 0.3-0.7 [facility] Comment on above: Result Comment: [place]y roxaban and Apixaban will interfere with the anti Xa assay used to monitor UFH and LMWH. Performed By: #### L [id number] ####[facility] ([facility])[address] [place] [address] BASIC METABOLIC PANELon Anion gap [Moles/Vol] 11 mmol/L Normal 7-20 [facility] Comment on above: Performed By: #### L [id number] ####[facility] ([facility])[address] [place] [address] Calcium [Mass/Vol] 8.9 mg/dL Normal 8.6-10.3 [facility] Comment on above: Performed By: #### L [id number] ####[facility] (BE[facility]ER)[address] [place] [address] Chloride [Moles/Vol] 101 mmol/L Normal 98-107 [facility] Comment on above: Performed By: #### L [id number] ####[facility] (BEAKER)[address] [place] [address] CO2 [Moles/Vol] 28 mmol/L Normal 21-[address] [facility] Comment on above: Performed By: #### L [id number] ####[facility] ([facility])[address] [place] [address] Creatinine [Mass/Vol] 1.03 mg/dL Normal 0.70-1.30 [facility] Comment on above: Performed By: #### L [id number] ####[facility] (BE[facility]ER)[address] [place] [address] GLOMERULAR FILTRATION RATE ML/MIN/1.73 SQ M.PREDICTED 88.5 mL/min/1.73m*2 Normal >60.0 [facility] Comment on above: Result Comment: The [facility]???s estimated glomerular filtration rate (eGFR) [...] of individuals. Performed By: #### L [id number] ####[facility] ([facility])[address] [place] [address] Glucose [Mass/Vol] 87 mg/dL Normal 70-100 [facility] Comment on above: Performed By: #### L [id number] ####[facility] ([facility])[address] [place] [address] Potassium [Moles/Vol] 4.4 mmol/L Normal 3.5-5.1 [facility] Comment on above: Performed By: #### L [id number] ####[facility] ([facility])[address] [place] [address] Sodium [Moles/Vol] 136 mmol/L Normal 136-145 [facility] Comment on above: Performed By: #### L [id number] ####[facility] ([facility])[address] [place] [address] Urea nitrogen [Mass/Vol] 13 mg/dL Normal 7-25 [facility] Comment on above: Performed By: #### L [id number] ####[facility] ([facility])[address] [place] [address] UREA NITROGEN/CREATININE (MASS RATIO) IN SER/PLAS 12.6 Normal [facility] Comment on above: Performed By: #### L [id number] ####[facility] ([facility])[address] [place] [address] CBCon 07-03-2023 Erythrocyte distribution width (RBC) [Ratio] 15.5 % High 11.5-15.0 [facility] Comment on above: Performed By: #### L [id number] ####[facility] ([facility] [place] [address] ERYTHROCYTE MEAN CORPUSCULAR HEMOGLOBIN CONCENTRATION (G/DL) BY AUTOMATED 31.9 g/dL Low 32.0-35.0 [facility] Comment on above: Performed By: #### L [id number] ####[facility] ([facility] [place] [address] Hematocrit (Bld) [Volume fraction] 25.4 % Low 39.0-55.0 [facility] Comment on above: Performed By: #### L [id number] ####[facility] ([facility] [place] [address] Hemoglobin (Bld) [Mass/Vol] 8.1 g/dL Low 13.0-17.0 [facility] Comment on above: Performed By: #### L [id number] ####[facility] ([facility] [place] [address] MCH (RBC) [Entitic mass] 28.8 pg Normal 27.0-33.0 [facility] Comment on above: Performed By: #### L [id number] ####[facility] (BEAKER)[address] [place] [address] MCV (RBC) [Entitic vol] 90.4 fL Normal 82.0-98.0 [facility] Comment on above: Performed By: #### L [id number] ####[facility] (BE[facility]ER)[address] [place] [address] PLATELETS (10*3/UL) IN BLOOD AUTOMATED COUNT 247 10*3/uL Normal 150-400 [facility] Comment on above: Performed By: #### L [id number] ####[facility] (BEAKER)[address] [place] [address] RBC (Bld) [#/Vol] 2.81 10*6/uL Low 4.20-5.70 [facility] Comment on above: Performed By: #### L [id number] ####[facility] ([facility])[address] [place] [address] WBC (Bld) [#/Vol] 4.31 10*3/uL Normal 4.00-10.60 [facility] Comment on above: Performed By: #### L [id number] ####[facility] ([facility])[address] [place] [address] MAGNESIUMon 07-03-2023 Magnesium [Mass/Vol] 2.0 mg/dL Normal 1.9-2.7 [facility] Comment on above: Performed By: #### L [id number] ####[facility] ([facility])[address] [place] [address] POCT GLUCOSE METER UNSOLICIT ED RESULTSon 07-03-2023 Glucose [Mass/Vol] 127 mg/dL High 70-105 [facility] Comment on above: Order Comment: Waive d Testing in the ED is performed under the ED CLIA certificate #[id number]. Result Comment: [email or web address] Performed By: #### L [id number] ####[facility] ([facility])[address] [place] [address] Glucose [Mass/Vol] 129 mg/dL High 70-105 [facility] Comment on above: Order Comment: Waive d Testing in the ED is performed under the ED CLIA certificate #[id number]. Result Comment: [email or web address] Performed By: #### L [id number] ####[facility] ([facility])[address] [place] [address] Glucose [Mass/Vol] 135 mg/dL High 70-105 [facility] Comment on above: Order Comment: Waive d Testing in the ED is performed under the ED CLIA certificate #[id number]. Result Comment: [email or web address] Performed By: #### L [id number] ####[facility] ([facility])[address] [place] [address] Glucose [Mass/Vol] 99 mg/dL Normal 70-105 [facility] Comment on above: Order Comment: Waive d Testing in the ED is performed under the ED CLIA certificate #[id number]. Result Comment: [email or web address] Performed By: #### L [id number] ####[facility] (BEAKER)[address] [place] [address] PROTIME-INRon 07-03-2023 INR IN PPP BY COAGULATION ASSAY 1.62 High 0.90-1.10 [facility] Comment on above: Result [...] CHEST 1995;108:231S-246S. Performed By: #### L [id number] ####[facility] (BEAKER)[address] [place] [address] PROTHROMBIN TIME (PT) IN PPP BY COAGULATION ASSAY 19.3 Seconds High 12.3-14.8 [facility] Comment on above: Performed By: #### L [id number] ####[facility] (BEAKER)[address] [place] [address] 30on 07-02-2023 30 The patient is Moder ately Stable - Low risk of patient condition declining or worsening The patient's goals for the shift include comfort, rest The clinical goals for the shift include Stable vitals, comfort Normal [facility] 30 Normal [facility] 30 Normal [facility] ANTI-XA (HEPARIN LEVEL)on HEPARIN UNFRACTIONATED (U/ML) IN PPP BY CHROMOGENIC METHOD 0.47 IU/mL Normal 0.3-0.7 [facility] Comment on above: Result Comment: [place] roxaban and Apixaban will interfere with the anti Xa assay used to monitor UFH and LMWH. Performed By: #### L [id number] ####[facility] (BEAKER)[address] [place] [address] BASIC METABOLIC PANELon Anion gap [Moles/Vol] 12 mmol/L Normal 7-20 [facility] Comment on above: Performed By: #### L [id number] ####[facility] (BEAKER)[address] [place] [address] Calcium [Mass/Vol] 8.9 mg/dL Normal 8.6-10.3 [facility] Comment on above: Performed By: #### L [id number] ####[facility] (BEAKER)[address] [place] [address] Chloride [Moles/Vol] 97 mmol/L Low 98-107 [facility] Comment on above: Performed By: #### L [id number] ####[facility] ([facility])[address] [place] [address] CO2 [Moles/Vol] 28 mmol/L Normal 21-[address] [facility] Comment on above: Performed By: #### L [id number] ####[facility] ([facility]ER)[address] [place] [address] Creatinine [Mass/Vol] 1.00 mg/dL Normal 0.70-1.30 [facility] Comment on above: Performed By: #### L [id number] ####[facility] ([facility]ER)[address] [place] [address] GLOMERULAR FILTRATION RATE ML/MIN/1.73 SQ M.PREDICTED 91.7 mL/min/1.73m*2 Normal >60.0 [facility] Comment on above: Result Comment: The [facility]???s estimated glomerular filtration rate (eGFR) [...] of individuals. Performed By: #### L [id number] ####[facility] ([facility])[address] [place] [address] Glucose [Mass/Vol] 100 mg/dL Normal 70-100 [facility] Comment on above: Performed By: #### L [id number] ####[facility] ([facility])[address] [facility] [address] Potassium [Moles/Vol] 3.9 mmol/L Normal 3.5-5.1 [facility] Comment on above: Performed By: #### L [id number] ####[facility] ([facility])[address] [facility] [address] Sodium [Moles/Vol] 133 mmol/L Low 136-145 [facility] Comment on above: Performed By: #### L [id number] ####[facility] ([facility] [facility] [address] Urea nitrogen [Mass/Vol] 10 mg/dL Normal 7-25 [facility] Comment on above: Performed By: #### L [id number] ####[facility] ([facility])[address] [place] [address] UREA NITROGEN/CREATININE (MASS RATIO) IN SER/PLAS 10.0 Normal [facility] Comment on above: Performed By: #### L [id number] ####[facility] ([facility])[address] [place] [address] CBC WITH AUTO DIFFERENTIALon 07-02-2023 Basophils (Bld) [#/Vol] 0.05 10*3/uL Normal 0.00-0.20 [facility] Comment on above: Performed By: #### L [id number] ####[facility] (BEAKER)[address] [place] [address] Basophils/100 WBC (Bld) 0.9 % Normal 0.0-1.0 [facility] Comment on above: Performed By: #### L [id number] ####[facility] (BEAKER)[address] [place] [address] Eosinophils (Bld) [#/Vol] 0.27 10*3/uL Normal 0.00-0.50 [facility] Comment on above: Performed By: #### L [id number] ####[facility] (BEAKER)[address] [place] [address] Eosinophils/100 WBC (Bld) 4.6 % Normal 0.0-6.0 [facility] Comment on above: Performed By: #### L [id number] ####[facility] (BEAKER)[address] [place] [address] Erythrocyte distribution width (RBC) [Ratio] 15.4 % High 11.5-15.0 [facility] Comment on above: Performed By: #### L [id number] ####[facility] (BEAKER)[address] [place] [address] ERYTHROCYTE MEAN CORPUSCULAR HEMOGLOBIN CONCENTRATION (G/DL) BY AUTOMATED 32.7 g/dL Normal 32.0-35.0 [facility] Comment on above: Performed By: #### L [id number] ####[facility] (BEAKER)[address] [place] [address] Hematocrit (Bld) [Volume fraction] 27.2 % Low 39.0-55.0 [facility] Comment on above: Performed By: #### L [id number] ####[facility] (BEAKER)[address] [place] [address] Hemoglobin (Bld) [Mass/Vol] 8.9 g/dL Low 13.0-17.0 [facility] Comment on above: Performed By: #### L [id number] ####[facility] (BEAKER)[address] [place] [address] Immature granulocytes (Bld) [#/Vol] 0.04 10*3/uL Normal 0.00-0.20 [facility] Comment on above: Performed By: #### L [id number] ####[facility] (BEAKER)[address] [place] [address] Immature granulocytes/100 WBC (Bld) 0.7 % Normal 0.0-1.0 [facility] Comment on above: Performed By: #### L [id number] ####[facility] (BEAKER)[address] [place] [address] Lymphocytes (Bld) [#/Vol] 1.10 10*3/uL Low 1.20-4.00 [facility] Comment on above: Performed By: #### L [id number] ####[facility] (BEAKER)[address] [place] [address] Lymphocytes/100 WBC (Bld) 18.8 % Low 20.0-45.0 [facility] Center Comment on above: Performed By: #### L [id number] ####[facility] (BEAKER)[address] [place] [address] MCH (RBC) [Entitic mass] 29.0 pg Normal 27.0-33.0 [facility] Comment on above: Performed By: #### L [id number] ####[facility] ([facility])[address] [place] [address] MCV (RBC) [Entitic vol] 88.6 fL Normal 82.0-98.0 [facility] Comment on above: Performed By: #### L [id number] ####[facility] ([facility]ER)[address] [place] [address] Monocytes (Bld) [#/Vol] 0.73 10*3/uL Normal 0.10-1.00 [facility] Comment on above: Performed By: #### L [id number] ####[facility] ([facility])[address] [place] [address] Monocytes/100 WBC (Bld) 12.5 % High 5.0-12.0 [facility] Comment on above: Performed By: #### L [id number] ####[facility] ([facility])[address] [place] [address] Neutrophils (Bld) [#/Vol] 3.67 10*3/uL Normal 1.60-7.60 [facility] Comment on above: Performed By: #### L [id number] ####[facility] ([facility])[address] [place] [address] Neutrophils/100 WBC (Bld) 62.5 % Normal 40.0-72.0 [facility] Comment on above: Performed By: #### L [id number] ####[facility] ([facility])[address] [place] [address] NRBC (PER 100 WBCS) BY AUTOMATED COUNT 0.0 % Normal 0 [facility] Comment on above: Performed By: #### L [id number] ####[facility] ([facility])[address] [place] [address] PLATELETS (10*3/UL) IN BLOOD AUTOMATED COUNT 292 10*3/uL Normal 150-400 [facility] Comment on above: Performed By: #### L [id number] ####[facility] ([facility])[address] [place] [address] RBC (Bld) [#/Vol] 3.07 10*6/uL Low 4.20-5.70 [facility] Comment on above: Performed By: #### L [id number] ####[facility] ([facility] [place] [address] WBC (Bld) [#/Vol] 5.86 10*3/uL Normal 4.00-10.60 [facility] Comment on above: Performed By: #### L [id number] ####[facility] ([facility])[address] [place] [address] MAGNESIUMon 07-02-2023 Magnesium [Mass/Vol] 2.0 mg/dL Normal 1.9-2.7 [facility] Comment on above: Performed By: #### L [id number] ####[facility] ([facility])[address] [facility] [facility] [address] NURSNOTEon 07-02-2023 NURSNOTE Heparin level 0.47, no need for rate change at this time. Safety Maintained. Normal [facility] POCT GLUCOSE METER UNSOLICIT ED RESULTSon 07-02-2023 Glucose [Mass/Vol] 118 mg/dL High 70-105 [facility] Comment on above: Order Comment: Waive d Testing in the ED is performed under the ED CLIA certificate #[id number]. Result Comment: [email or web address] Performed By: #### L [id number] ####[facility] ([facility])[address] [place] [address] Glucose [Mass/Vol] 154 mg/dL High 70-105 [facility] Comment on above: Order Comment: Waive d Testing in the ED is performed under the ED CLIA certificate #[id number]. Result Comment: [email or web address] Performed By: #### L [id number] ####[facility] ([facility])[address] [place] [address] Glucose [Mass/Vol] 138 mg/dL High 70-105 [facility] Comment on above: Order Comment: Waive d Testing in the ED is performed under the ED CLIA certificate #[id number]. Result Comment: [email or web address] Performed By: #### L [id number] ####[facility] ([facility])[address] [place] [address] Glucose [Mass/Vol] 106 mg/dL High 70-105 [facility] Comment on above: Order Comment: Waive d Testing in the ED is performed under the ED CLIA certificate #[id number]. Result Comment: [email or web address] Performed By: #### L [id number] ####[facility] (Minded)[address] [place] [address] PROTIME-INRon 07-02-2023 INR IN PPP BY COAGULATION ASSAY 1.45 High 0.90-1.10 [facility] Comment on above: Result [...] CHEST 1995;108:231S-246S. Performed By: #### L [id number] ####[facility] ([facility])[address] [place] [address] PROTHROMBIN TIME (PT) IN PPP BY COAGULATION ASSAY 17.7 Seconds High 12.3-14.8 [facility] Comment on above: Performed By: #### L [id number] ####[facility] userfox (Minded)[address] [place] [address] 30on 07-01-2023 30 Normal [facility] 30 [facility] 30 [facility] 30 The patient is Moder ately Stable - Low risk of patient condition declining or worsening The patient's goals for the shift include comfort The clinical goals for the shift include safety [facility] ANTI-XA (HEPARIN LEVEL)on HEPARIN UNFRACTIONATED (U/ML) IN PPP BY CHROMOGENIC METHOD 0.38 IU/mL Normal 0.3-0.7 [facility] Comment on above: Result Comment: Sofy roxaban and Apixaban will interfere with the anti Xa assay used to monitor UFH and LMWH. Performed By: #### L [id number] ####[facility] ([facility] [place] [address] BASIC METABOLIC PANELon Anion gap [Moles/Vol] 12 mmol/L Normal 7-20 [facility] Comment on above: Performed By: #### L [id number] ####[facility] ([facility])[address] [place] [address] Calcium [Mass/Vol] 8.6 mg/dL Normal 8.6-10.3 [facility] Comment on above: Performed By: #### L [id number] ####[facility] ([facility] [place] [address] Chloride [Moles/Vol] 95 mmol/L Low 98-107 [facility] Comment on above: Performed By: #### L [id number] ####[facility] (BEAKER)[address] [place] [address] CO2 [Moles/Vol] 30 mmol/L Normal 21-[address] [facility] Comment on above: Performed By: #### L [id number] ####[facility] ([facility] [place] [address] Creatinine [Mass/Vol] 0.89 mg/dL Normal 0.70-1.30 [facility] Comment on above: Performed By: #### L [id number] ####[facility] ([facility])[address] [place] [address] GLOMERULAR FILTRATION RATE ML/MIN/1.73 SQ M.PREDICTED 104.4 mL/min/1.73m*2 Normal >60.0 [facility] Comment on above: Result Comment: The [facility]???s estimated glomerular filtration rate (eGFR) [...] of individuals. Performed By: #### L [id number] ####[facility] ([facility])[address] [place] [address] Glucose [Mass/Vol] 95 mg/dL Normal 70-100 [facility] Comment on above: Performed By: #### L [id number] ####[facility] ([facility])[address] [place] [address] Potassium [Moles/Vol] 3.6 mmol/L Normal 3.5-5.1 [facility] Comment on above: Performed By: #### L [id number] ####[facility] ([facility])[address] [place] [address] Sodium [Moles/Vol] 133 mmol/L Low 136-145 [facility] Comment on above: Performed By: #### L [id number] ####[facility] ([facility])[address] [place] [address] Urea nitrogen [Mass/Vol] 9 mg/dL Normal 7-25 [facility] Comment on above: Performed By: #### L [id number] ####[facility] ([facility])[address] [place] [address] UREA NITROGEN/CREATININE (MASS RATIO) IN SER/PLAS 10.1 Normal [facility] Comment on above: Performed By: #### L [id number] ####[facility] ([facility])[address] [place] [address] CBCon 07-01-2023 Erythrocyte distribution width (RBC) [Ratio] 15.3 % High 11.5-15.0 [facility] Comment on above: Performed By: #### L [id number] ####[facility] ([facility])[address] [place] [address] ERYTHROCYTE MEAN CORPUSCULAR HEMOGLOBIN CONCENTRATION (G/DL) BY AUTOMATED 33.1 g/dL Normal 32.0-35.0 [facility] Comment on above: Performed By: #### L [id number] ####[facility] ([facility])[address] [place] [address] Hematocrit (Bld) [Volume fraction] 24.2 % Low 39.0-55.0 [facility] Comment on above: Performed By: #### L [id number] ####[facility] ([facility])[address] [place] [address] Hemoglobin (Bld) [Mass/Vol] 8.0 g/dL Low 13.0-17.0 [facility] Comment on above: Performed By: #### L [id number] ####[facility] ([facility])[address] [place] [address] MCH (RBC) [Entitic mass] 29.1 pg Normal 27.0-33.0 [facility] Comment on above: Performed By: #### L [id number] ####[facility] ([facility])[address] [place] [address] MCV (RBC) [Entitic vol] 88.0 fL Normal 82.0-98.0 [facility] Comment on above: Performed By: #### L [id number] ####[facility] ([facility])[address] [place] [address] PLATELETS (10*3/UL) IN BLOOD AUTOMATED COUNT 218 10*3/uL Normal 150-400 [facility] Comment on above: Performed By: #### L [id number] ####[facility] ([facility])[address] [place] [address] RBC (Bld) [#/Vol] 2.75 10*6/uL Low 4.20-5.70 [facility] Comment on above: Performed By: #### L [id number] ####[facility] ([facility])[address] [place] [address] WBC (Bld) [#/Vol] 4.96 10*3/uL Normal 4.00-10.60 [facility] Comment on above: Performed By: #### L [id number] ####[facility] ([facility])[address] [place] [address] CONSULTon 07-01-2023 CONSULT Normal [facility] MAGNESIUMon 07-01-2023 Magnesium [Mass/Vol] 2.0 mg/dL Normal 1.9-2.7 [facility] Comment on above: Performed By: #### L [id number] ####[facility] ([facility])[address] [place] [address] POCT GLUCOSE METER UNSOLICIT ED RESULTSon 07-01-2023 Glucose [Mass/Vol] 128 mg/dL High 70-105 [facility] Comment on above: Order Comment: Waive d Testing in the ED is performed under the ED CLIA certificate #[id number]. Result Comment: [email or web address] Performed By: #### L [id number] ####[facility] ([facility])[address] [place] [address] Glucose [Mass/Vol] 119 mg/dL High 70-105 [facility] Comment on above: Order Comment: Waive d Testing in the ED is performed under the ED CLIA certificate #[id number]. Result Comment: [email or web address] Performed By: #### L [id number] ####[facility] ([facility])[address] [place] [address] Glucose [Mass/Vol] 151 mg/dL High 70-105 [facility] Comment on above: Order Comment: Waive d Testing in the ED is performed under the ED CLIA certificate #[id number]. Result Comment: [email or web address] Performed By: #### L [id number] ####[facility] ([facility])[address] [place] [address] Glucose [Mass/Vol] 119 mg/dL High 70-105 [facility] Comment on above: Order Comment: Waive d Testing in the ED is performed under the ED CLIA certificate #[id number]. Result Comment: [email or web address] Performed By: #### L [id number] ####[facility] (Mind[facility])[address] [place] [address] Glucose [Mass/Vol] 121 mg/dL High 70-105 [facility] Comment on above: Order Comment: Waive d Testing in the ED is performed under the ED CLIA certificate #[id number]. Result Comment: [email or web address] Performed By: #### L [id number] ####[facility] ([facility])[address] [place] [address] PROTIME-INRon 07-01-2023 INR IN PPP BY COAGULATION ASSAY 1.37 High 0.90-1.10 [facility] Comment on above: Result [...] CHEST 1995;108:231S-246S. Performed By: #### L [id number] ####[facility] ([facility])[address] [place] [address] PROTHROMBIN TIME (PT) IN PPP BY COAGULATION ASSAY 16.9 Seconds High 12.3-14.8 [facility] Comment on above: Performed By: #### L [id number] ####[facility] ([facility])[address] [place] [address] 30on 06-30-2023 30 Normal [facility] ANTI-XA (HEPARIN LEVEL)on HEPARIN UNFRACTIONATED (U/ML) IN PPP BY CHROMOGENIC METHOD 0.39 IU/mL Normal 0.3-0.7 [facility] Comment on above: Result Comment: [place] roxaban and Apixaban will interfere with the anti Xa assay used to monitor UFH and LMWH. Performed By: #### L [id number] ####[facility] ([facility])[address] [place] [address] BASIC METABOLIC PANELon 06-01 Anion gap [Moles/Vol] 11 mmol/L Normal 7-20 [facility] Comment on above: Performed By: #### L [id number] ####[facility] ([facility])[address] [place] [address] Calcium [Mass/Vol] 8.9 mg/dL Normal 8.6-10.3 [facility] Comment on above: Performed By: #### L [id number] ####[facility] ([facility])[address] [place] [address] Chloride [Moles/Vol] 96 mmol/L Low 98-107 [facility] Comment on above: Performed By: #### L [id number] ####[facility] ([facility] [place] [address] CO2 [Moles/Vol] 30 mmol/L Normal -[address] [facility] Comment on above: Performed By: #### L [id number] ####[facility] (BEAKER)[address] [place] [address] Creatinine [Mass/Vol] 0.78 mg/dL Normal 0.70-1.30 [facility] Comment on above: Performed By: #### L [id number] ####[facility] ([facility] [place] [address] GLOMERULAR FILTRATION RATE ML/MIN/1.73 SQ M.PREDICTED 108.6 mL/min/1.73m*2 Normal >60.0 [facility] Comment on above: Result Comment: The [facility]???s estimated glomerular filtration rate (eGFR) [...] of individuals. Performed By: #### L [id number] ####[facility] ([facility])[address] [place] [address] Glucose [Mass/Vol] 108 mg/dL High 70-100 [facility] Comment on above: Performed By: #### L [id number] ####[facility] ([facility])[address] [place] [address] Potassium [Moles/Vol] 3.9 mmol/L Normal 3.5-5.1 [facility] Comment on above: Performed By: #### L [id number] ####[facility] ([facility])[address] [place] [address] Sodium [Moles/Vol] 133 mmol/L Low 136-145 [facility] Comment on above: Performed By: #### L [id number] ####[facility] ([facility])[address] [place] [address] Urea nitrogen [Mass/Vol] 9 mg/dL Normal 7-25 [facility] Comment on above: Performed By: #### L [id number] ####[facility] ([facility])[address] [place] [address] UREA NITROGEN/CREATININE (MASS RATIO) IN SER/PLAS 11.5 Normal [facility] Comment on above: Performed By: #### L [id number] ####[facility] ([facility])[address] [place] [address] CBCon 06-30-2023 Erythrocyte distribution width (RBC) [Ratio] 15.4 % High 11.5-15.0 [facility] Comment on above: Performed By: #### L [id number] ####[facility] ([facility])[address] [place] [address] ERYTHROCYTE MEAN CORPUSCULAR HEMOGLOBIN CONCENTRATION (G/DL) BY AUTOMATED 33.6 g/dL Normal 32.0-35.0 [facility] Comment on above: Performed By: #### L [id number] ####[facility] ([facility])[address] [place] [address] Hematocrit (Bld) [Volume fraction] 24.4 % Low 39.0-55.0 [facility] Comment on above: Performed By: #### L [id number] ####[facility] ([facility])[address] [place] [address] Hemoglobin (Bld) [Mass/Vol] 8.2 g/dL Low 13.0-17.0 [facility] Comment on above: Performed By: #### L [id number] ####[facility] ([facility])[address] [place] [address] MCH (RBC) [Entitic mass] 28.9 pg Normal 27.0-33.0 [facility] Comment on above: Performed By: #### L [id number] ####[facility] ([facility])[address] [place] [address] MCV (RBC) [Entitic vol] 85.9 fL Normal 82.0-98.0 [facility] Comment on above: Performed By: #### L [id number] ####[facility] ([facility])[address] [place] [address] PLATELETS (10*3/UL) IN BLOOD AUTOMATED COUNT 203 10*3/uL Normal 150-400 [facility] Comment on above: Performed By: #### L [id number] ####[facility] ([facility])[address] [place] [address] RBC (Bld) [#/Vol] 2.84 10*6/uL Low 4.20-5.70 [facility] Comment on above: Performed By: #### L [id number] ####[facility] ([facility])[address] [place] [address] WBC (Bld) [#/Vol] 6.03 10*3/uL Normal 4.00-10.60 [facility] Comment on above: Performed By: #### L [id number] ####[facility] ([facility])[address] [place] [address] CKon 06-30-2023 CREATINE KINASE (U/L) IN SER/PLAS 144.0 U/L Normal 30.0-223.0 [facility] Comment on above: Performed By: #### L [id number] ####[facility] ([facility])[address] [place] [address] MAGNESIUMon 06-30-2023 Magnesium [Mass/Vol] 2.1 mg/dL Normal 1.9-2.7 [facility] Comment on above: Performed By: #### L [id number] ####[facility] ([facility])[address] [place] [address] Magnesium [Mass/Vol] 2.2 mg/dL Normal 1.9-2.7 [facility] Comment on above: Performed By: #### L [id number] ####[facility] ([facility])[address] [place] [address] POCT GLUCOSE METER UNSOLICIT ED RESULTSon 06-30-2023 Glucose [Mass/Vol] 243 mg/dL High 70-105 [facility] Comment on above: Order Comment: Waive d Testing in the ED is performed under the ED CLIA certificate #[id number]. Result Comment: [email or web address] Performed By: #### L [id number] ####[facility] ([facility])[address] [place] [address] Glucose [Mass/Vol] 112 mg/dL High 70-105 [facility] Comment on above: Order Comment: Waive d Testing in the ED is performed under the ED CLIA certificate #[id number]. Result Comment: [email or web address] Performed By: #### L [id number] ####[facility] ([facility])[address] [place] [address] Glucose [Mass/Vol] 124 mg/dL High 70-105 [facility] Comment on above: Order Comment: Waive d Testing in the ED is performed under the ED CLIA certificate #[id number]. Result Comment: [email or web address] Performed By: #### L [id number] ####[facility] ([facility])[address] [place] [address] Glucose [Mass/Vol] 158 mg/dL High 70-105 [facility] Comment on above: Order Comment: Waive d Testing in the ED is performed under the ED CLIA certificate #[id number]. Result Comment: [email or web address] Performed By: #### L [id number] ####[facility] ([facility])[address] [place] [address] POTASSIUMon 06-30-2023 Potassium [Moles/Vol] 4.0 mmol/L Normal 3.5-5.1 [facility] Comment on above: Performed By: #### L [id number] ####[facility] ([facility])[address] [place] [address] PROTIME-INRon 06-30-2023 INR IN PPP BY COAGULATION ASSAY 1.21 High 0.90-1.10 [facility] Comment on above: Result [...] CHEST 1995;108:231S-246S. Performed By: #### L [id number] ####[facility] ([facility])[address] [place] [address] PROTHROMBIN TIME (PT) IN PPP BY COAGULATION ASSAY 15.4 Seconds High 12.3-14.8 [facility] Comment on above: Performed By: #### L [id number] ####[facility] ([facility])[address] [place] [address] 30on 06-29-2023 30 Normal [facility] 30 Normal [facility] ANTI-XA (HEPARIN LEVEL)on HEPARIN UNFRACTIONATED (U/ML) IN PPP BY CHROMOGENIC METHOD 0.30 IU/mL Normal 0.3-0.7 [facility] Comment on above: Result Comment: [place] roxaban and Apixaban will interfere with the anti Xa assay used to monitor UFH and LMWH. Performed By: #### L [id number] ####[facility] ([facility])[address] [place] [address] HEPARIN UNFRACTIONATED (U/ML) IN PPP BY CHROMOGENIC METHOD 0.31 IU/mL Normal 0.3-0.7 [facility] Comment on above: Result Comment: [place] roxaban and Apixaban will interfere with the anti Xa assay used to monitor UFH and LMWH. Performed By: #### L [id number] ####[facility] ([facility])[address] [place] [address] BASIC METABOLIC PANELon 06-01 Anion gap [Moles/Vol] 10 mmol/L Normal 7-20 [facility] Comment on above: Performed By: #### L [id number] ####[facility] ([facility])[address] [place] [address] Calcium [Mass/Vol] 8.3 mg/dL Low 8.6-10.3 [facility] Comment on above: Performed By: #### L [id number] ####[facility] ([facility] [place] [address] Chloride [Moles/Vol] 96 mmol/L Low 98-107 [facility] Comment on above: Performed By: #### L [id number] ####[facility] ([facility] [place] [address] CO2 [Moles/Vol] 29 mmol/L Normal 21-[address] [facility] Comment on above: Performed By: #### L [id number] ####[facility] ([facility] [place] [address] Creatinine [Mass/Vol] 0.74 mg/dL Normal 0.70-1.30 [facility] Comment on above: Performed By: #### L [id number] ####[facility] ([facility])[address] [place] [address] GLOMERULAR FILTRATION RATE ML/MIN/1.73 SQ M.PREDICTED 110.4 mL/min/1.73m*2 Normal >60.0 [facility] Comment on above: Result Comment: The [facility]???s estimated glomerular filtration rate (eGFR) [...] of individuals. Performed By: #### L [id number] ####[facility] ([facility] [place] [address] Glucose [Mass/Vol] 107 mg/dL High 70-100 [facility] Comment on above: Performed By: #### L [id number] ####[facility] ([facility])[address] [place] [address] Potassium [Moles/Vol] 4.3 mmol/L Normal 3.5-5.1 [facility] Comment on above: Performed By: #### L [id number] ####[facility] ([facility])[address] [place] [address] Sodium [Moles/Vol] 131 mmol/L Low 136-145 [facility] Comment on above: Performed By: #### L [id number] ####[facility] ([facility])[address] [place] [address] Urea nitrogen [Mass/Vol] 9 mg/dL Normal 7-25 [facility] Comment on above: Performed By: #### L [id number] ####[facility] ([facility])[address] [place] [address] UREA NITROGEN/CREATININE (MASS RATIO) IN SER/PLAS 12.2 Normal [facility] Comment on above: Performed By: #### L [id number] ####[facility] ([facility])[address] [place] [address] CBCon 06-29-2023 Erythrocyte distribution width (RBC) [Ratio] 15.8 % High 11.5-15.0 [facility] Comment on above: Performed By: #### L [id number] ####[facility] ([facility])[address] [place] [address] ERYTHROCYTE MEAN CORPUSCULAR HEMOGLOBIN CONCENTRATION (G/DL) BY AUTOMATED 33.6 g/dL Normal 32.0-35.0 [facility] Comment on above: Performed By: #### L [id number] ####[facility] ([facility])[address] [place] [address] Hematocrit (Bld) [Volume fraction] 23.5 % Low 39.0-55.0 [facility] Comment on above: Performed By: #### L [id number] ####[facility] [place] [address] Hemoglobin (Bld) [Mass/Vol] 7.9 g/dL Low 13.0-17.0 [facility] Comment on above: Performed By: #### L [id number] ####[facility] ([facility])[address] [place] [address] MCH (RBC) [Entitic mass] 29.5 pg Normal 27.0-33.0 [facility] Comment on above: Performed By: #### L [id number] ####[facility] ([facility])[address] [place] [address] MCV (RBC) [Entitic vol] 87.7 fL Normal 82.0-98.0 [facility] Comment on above: Performed By: #### L [id number] ####[facility] ([facility])[address] [place] [address] PLATELETS (10*3/UL) IN BLOOD AUTOMATED COUNT 161 10*3/uL Normal 150-400 [facility] Comment on above: Performed By: #### L [id number] ####[facility] ([facility])[address] [place] [address] RBC (Bld) [#/Vol] 2.68 10*6/uL Low 4.20-5.70 [facility] Comment on above: Performed By: #### L [id number] ####[facility] ([facility])[address] [place] [address] WBC (Bld) [#/Vol] 6.52 10*3/uL Normal 4.00-10.60 [facility] Comment on above: Performed By: #### L [id number] ####[facility] ([facility])[address] [place] [address] MAGNESIUMon 06-29-2023 Magnesium [Mass/Vol] 2.3 mg/dL Normal 1.9-2.7 [facility] Comment on above: Performed By: #### L [id number] ####[facility] ([facility])[address] [place] [address] Magnesium [Mass/Vol] 2.0 mg/dL Normal 1.9-2.7 [facility] Comment on above: Performed By: #### L [id number] ####[facility] ([facility])[address] [place] [address] NURSNOTEon 06-29-2023 NURSNOTE Normal [facility] PHOSPHORUSon 06-29-2023 Magnesium [Mass/Vol] 3.2 mg/dL Normal 2.5-5.0 [facility] Comment on above: Performed By: #### L [id number] ####[facility] ([facility])[address] [place] [address] POCT GLUCOSE METER UNSOLICIT ED RESULTSon 06-29-2023 Glucose [Mass/Vol] 129 mg/dL High 70-105 [facility] Comment on above: Order Comment: Waive d Testing in the ED is performed under the ED CLIA certificate #[id number]. Result Comment: [email or web address] Performed By: #### L [id number] ####[facility] ([facility])[address] [place] [address] Glucose [Mass/Vol] 108 mg/dL High 70-105 [facility] Comment on above: Order Comment: Waive d Testing in the ED is performed under the ED CLIA certificate #[id number]. Result Comment: [email or web address] Performed By: #### L [id number] ####[facility] ([facility])[address] [place] [address] Glucose [Mass/Vol] 142 mg/dL High 70-105 [facility] Comment on above: Order Comment: Waive d Testing in the ED is performed under the ED CLIA certificate #[id number]. Result Comment: [email or web address] Performed By: #### L [id number] ####[facility] ([facility])[address] [place] [address] Glucose [Mass/Vol] 136 mg/dL High 70-105 [facility] Comment on above: Order Comment: Waive d Testing in the ED is performed under the ED CLIA certificate #[id number]. Result Comment: [email or web address] Performed By: #### L [id number] ####[facility] ([facility])[address] [place] [address] POTASSIUMon 06-29-2023 Potassium [Moles/Vol] 4.3 mmol/L Normal 3.5-5.1 [facility] Comment on above: Performed By: #### L [id number] ####[facility] ([facility])[address] [place] [address] PROTIME-INRon 06-29-2023 INR IN PPP BY COAGULATION ASSAY 1.13 High 0.90-1.10 [facility] Comment on above: Result [...] CHEST 1995;108:231S-246S. Performed By: #### L [id number] ####[facility] ([facility])[address] [place] [address] PROTHROMBIN TIME (PT) IN PPP BY COAGULATION ASSAY 14.5 Seconds Normal 12.3-14.8 [facility] Comment on above: Performed By: #### L [id number] ####[facility] ([facility] [place] [address] 30on 06-28-2023 30 Normal [facility] 30 Normal [facility] ANTI-XA (HEPARIN LEVEL)on HEPARIN UNFRACTIONATED (U/ML) IN PPP BY CHROMOGENIC METHOD 0.25 IU/mL Low 0.3-0.7 [facility] Comment on above: Result Comment: [place] roxaban and Apixaban will interfere with the anti Xa assay used to monitor UFH and LMWH. Performed By: #### L [id number] ####[facility] ([facility])[address] [place] [address] HEPARIN UNFRACTIONATED (U/ML) IN PPP BY CHROMOGENIC METHOD 0.16 IU/mL Invalid Interpretation Code 0.3-0.7 [facility] Comment on above: Result Comment: [place] roxaban and Apixaban will interfere with the anti Xa assay used to monitor UFH and LMWH. Performed By: #### L [id number] ####[facility] ([facility])[address] [place] [address] HEPARIN UNFRACTIONATED (U/ML) IN PPP BY CHROMOGENIC METHOD <0.10 Invalid Interpretation Code 0.3-0.7 [facility] Comment on above: Order Comment: Check anti-Xa level every 6 hours while on heparin infusion, or per protocol. Result Comment: [place] roxaban and Apixaban will interfere with the anti Xa assay used to monitor UFH and LMWH. Performed By: #### L [id number] ####[facility] ([facility] [place] [address] APTTon 06-28-2023 ACTIVATED PARTIAL THROMBOPLASTIN TIME IN PPP BY COAGULATION ASSAY 31.5 Seconds Normal 25.0-35.0 [facility] Comment on above: Order Comment: Basel ine aPTT before initiating heparin infusion. Result Comment: Clin ical significance of the APTT is questionable in the presence of heparin. Performed By: #### L [id number] ####[facility] ([facility])[address] [place] [address] BASIC METABOLIC PANELon 03-2 Anion gap [Moles/Vol] 14 mmol/L Normal 7-20 [facility] Comment on above: Performed By: #### L [id number] ####[facility] ([facility])[address] [place] [address] Calcium [Mass/Vol] 8.1 mg/dL Low 8.6-10.3 [facility] Comment on above: Performed By: #### L [id number] ####[facility] ([facility])[address] [place] [address] Chloride [Moles/Vol] 95 mmol/L Low 98-107 [facility] Comment on above: Performed By: #### L [id number] ####[facility] ([facility])[address] [place] [address] CO2 [Moles/Vol] 25 mmol/L Normal 21-[address] [facility] Comment on above: Performed By: #### L [id number] ####[facility] ([facility])[address] [place] [address] Creatinine [Mass/Vol] 0.69 mg/dL Low 0.70-1.30 [facility] Comment on above: Performed By: #### L [id number] ####[facility] ([facility] [place] [address] GLOMERULAR FILTRATION RATE ML/MIN/1.73 SQ M.PREDICTED 112.7 mL/min/1.73m*2 Normal >60.0 [facility] Comment on above: Result Comment: The [facility]???s estimated glomerular filtration rate (eGFR) [...] of individuals. Performed By: #### L [id number] ####[facility] ([facility])[address] [place] [address] Glucose [Mass/Vol] 103 mg/dL High 70-100 [facility] Comment on above: Performed By: #### L [id number] ####[facility] ([facility])[address] [place] [address] Potassium [Moles/Vol] 3.9 mmol/L Normal 3.5-5.1 [facility] Comment on above: Performed By: #### L [id number] ####[facility] ([facility])[address] [place] [address] Sodium [Moles/Vol] 130 mmol/L Low 136-145 [facility] Comment on above: Performed By: #### L [id number] ####[facility] ([facility])[address] [place] [address] Urea nitrogen [Mass/Vol] 10 mg/dL Normal 7-25 [facility] Comment on above: Performed By: #### L [id number] ####[facility] ([facility])[address] [place] [address] UREA NITROGEN/CREATININE (MASS RATIO) IN SER/PLAS 14.5 Normal [facility] Comment on above: Performed By: #### L [id number] ####[facility] ([facility])[address] [place] [address] Anion gap [Moles/Vol] 8 mmol/L Normal 7-20 [facility] Comment on above: Performed By: #### L [id number] ####[facility] ([facility])[address] [place] [address] Calcium [Mass/Vol] 8.1 mg/dL Low 8.6-10.3 [facility] Comment on above: Performed By: #### L [id number] ####[facility] ([facility])[address] [place] [address] Chloride [Moles/Vol] 98 mmol/L Normal 98-107 [facility] Comment on above: Performed By: #### L [id number] ####[facility] ([facility] [place] [address] CO2 [Moles/Vol] 29 mmol/L Normal 21-[address] [facility] Comment on above: Performed By: #### L [id number] ####[facility] ([facility])[address] [place] [address] Creatinine [Mass/Vol] 0.73 mg/dL Normal 0.70-1.30 [facility] Comment on above: Performed By: #### L [id number] ####[facility] ([facility])[address] [place] [address] GLOMERULAR FILTRATION RATE ML/MIN/1.73 SQ M.PREDICTED 110.8 mL/min/1.73m*2 Normal >60.0 [facility] Comment on above: Result Comment: The [facility]???s estimated glomerular filtration rate (eGFR) [...] of individuals. Performed By: #### L [id number] ####[facility] ([facility] [place] [address] Glucose [Mass/Vol] 118 mg/dL High 70-100 [facility] Comment on above: Performed By: #### L [id number] ####[facility] ([facility] [place] [address] Potassium [Moles/Vol] 3.8 mmol/L Normal 3.5-5.1 [facility] Comment on above: Performed By: #### L [id number] ####[facility] ([facility] [place] [address] Sodium [Moles/Vol] 131 mmol/L Low 136-145 [facility] Comment on above: Performed By: #### L [id number] ####[facility] ([facility])[address] [place] [address] Urea nitrogen [Mass/Vol] 10 mg/dL Normal 7-25 [facility] Comment on above: Performed By: #### L [id number] ####[facility] ([facility] [place] [address] UREA NITROGEN/CREATININE (MASS RATIO) IN SER/PLAS 13.7 Normal [facility] Comment on above: Performed By: #### L [id number] ####[facility] ([facility])[address] [place] [address] CBCon 06-28-2023 Erythrocyte distribution width (RBC) [Ratio] 15.6 % High 11.5-15.0 [facility] Comment on above: Performed By: #### L [id number] ####[facility] ([facility])[address] [place] [address] ERYTHROCYTE MEAN CORPUSCULAR HEMOGLOBIN CONCENTRATION (G/DL) BY AUTOMATED 33.8 g/dL Normal 32.0-35.0 [facility] Comment on above: Performed By: #### L [id number] ####[facility] ([facility] [place] [address] Hematocrit (Bld) [Volume fraction] 20.4 % Low 39.0-55.0 [facility] Comment on above: Performed By: #### L [id number] ####[facility] ([facility] [place] [address] Hemoglobin (Bld) [Mass/Vol] 6.9 g/dL Low 13.0-17.0 [facility] Comment on above: Performed By: #### L [id number] ####[facility] ([facility])[address] [place] [address] IMMATURE PLATELET FRACTION % 5.6 % Normal 0.8-6.3 [facility] Comment on above: Performed By: #### L [id number] ####[facility] ([facility])[address] [place] [address] MCH (RBC) [Entitic mass] 29.5 pg Normal 27.0-33.0 [facility] Comment on above: Performed By: #### L [id number] ####[facility] ([facility])[address] [place] [address] MCV (RBC) [Entitic vol] 87.2 fL Normal 82.0-98.0 [facility] Comment on above: Performed By: #### L [id number] ####[facility] ([facility])[address] [place] [address] PLATELETS (10*3/UL) IN BLOOD AUTOMATED COUNT 127 10*3/uL Low 150-400 [facility] Comment on above: Performed By: #### L [id number] ####[facility] ([facility])[address] [place] [address] RBC (Bld) [#/Vol] 2.34 10*6/uL Low 4.20-5.70 [facility] Comment on above: Performed By: #### L [id number] ####[facility] ([facility])[address] [place] [address] WBC (Bld) [#/Vol] 6.57 10*3/uL Normal 4.00-10.60 [facility] Comment on above: Performed By: #### L [id number] ####[facility] ([facility])[address] [place] [address] CKon 06-28-2023 CREATINE KINASE (U/L) IN SER/PLAS 560.0 U/L High 30.0-223.0 [facility] Comment on above: Performed By: #### L [id number] ####[facility] ([facility])[address] [place] [address] CONSULTon 06-28-2023 CONSULT Normal [facility] MAGNESIUMon 06-28-2023 Magnesium [Mass/Vol] 1.9 mg/dL Normal 1.9-2.7 [facility] Comment on above: Performed By: #### L [id number] ####[facility] ([facility])[address] [place] [address] PLATELET COUNTon 06-28-2023 IMMATURE PLATELET FRACTION % 6.1 % Normal 0.8-6.3 [facility] Comment on above: Performed By: #### L [id number] ####[facility] ([facility])[address] [place] [address] PLATELETS (10*3/UL) IN BLOOD AUTOMATED COUNT 126 10*3/uL Low 150-400 [facility] Comment on above: Performed By: #### L [id number] ####[facility] ([facility])[address] [place] [address] POCT GLUCOSE METER UNSOLICIT ED RESULTSon 06-28-2023 Glucose [Mass/Vol] 95 mg/dL Normal 70-105 [facility] Comment on above: Order Comment: Waive d Testing in the ED is performed under the ED CLIA certificate #[id number]. Result Comment: [email or web address] Performed By: #### L [id number] ####[facility] ([facility])[address] [place] [address] Glucose [Mass/Vol] 118 mg/dL High 70-105 [facility] Comment on above: Order Comment: Waive d Testing in the ED is performed under the ED CLIA certificate #[id number]. Result Comment: [email or web address] gabo Performed By: #### L [id number] ####[facility] ([facility])[address] [place] [address] Glucose [Mass/Vol] 111 mg/dL High 70-105 [facility] Comment on above: Order Comment: Waive d Testing in the ED is performed under the ED CLIA certificate #[id number]. Result Comment: [email or web address] Performed By: #### L [id number] ####[facility] ([facility] [place] [address] Glucose [Mass/Vol] 160 mg/dL High 70-105 [facility] Comment on above: Order Comment: Waive d Testing in the ED is performed under the ED CLIA certificate #[id number]. Result Comment: lui contreras Performed By: #### L [id number] ####[facility] ([facility])[address] [place] [address] PROTIME-INRon 06-28-2023 INR IN PPP BY COAGULATION ASSAY 1.16 High 0.90-1.10 [facility] Comment on above: Result [...] CHEST 1995;108:231S-246S. Performed By: #### L [id number] ####[facility] ([facility])[address] [place] [address] PROTHROMBIN TIME (PT) IN PPP BY COAGULATION ASSAY 14.8 Seconds Normal 12.3-14.8 [facility] Comment on above: Performed By: #### L [id number] ####[facility] ([facility])[address] [place] [address] 30on 06-27-2023 30 Normal [facility] 30 Normal [facility] APTTon 06-27-2023 ACTIVATED PARTIAL THROMBOPLASTIN TIME IN PPP BY COAGULATION ASSAY 35.5 Seconds High 25.0-35.0 [facility] Comment on above: Result Comment: Clin ical significance of the APTT is questionable in the presence of heparin. Performed By: #### L [id number] ####[facility] ([facility])[address] [place] [address] BASIC METABOLIC PANELon - Anion gap [Moles/Vol] 9 mmol/L Normal 7-20 [facility] Comment on above: Performed By: #### L [id number] ####[facility] ([facility])[address] [place] [address] Calcium [Mass/Vol] 8.3 mg/dL Low 8.6-10.3 [facility] Comment on above: Performed By: #### L [id number] ####[facility] ([facility])[address] [place] [address] Chloride [Moles/Vol] 104 mmol/L Normal 98-107 [facility] Comment on above: Performed By: #### L [id number] ####[facility] ([facility])[address] [place] [address] CO2 [Moles/Vol] 26 mmol/L Normal 21-[address] [facility] Comment on above: Performed By: #### L [id number] ####[facility] ([facility])[address] [place] [address] Creatinine [Mass/Vol] 0.78 mg/dL Normal 0.70-1.30 [facility] Comment on above: Performed By: #### L [id number] ####[facility] ([facility])[address] [place] [address] GLOMERULAR FILTRATION RATE ML/MIN/1.73 SQ M.PREDICTED 108.6 mL/min/1.73m*2 Normal >60.0 [facility] Comment on above: Result Comment: The [facility]???s estimated glomerular filtration rate (eGFR) [...] of individuals. Performed By: #### L [id number] ####[facility] ([facility])[address] [facility] [address] Glucose [Mass/Vol] 117 mg/dL High 70-100 [facility] Comment on above: Performed By: #### L [id number] ####[facility] ([facility])[address] [place] [address] Potassium [Moles/Vol] 4.9 mmol/L Normal 3.5-5.1 [facility] Comment on above: Performed By: #### L [id number] ####[facility] ([facility])[address] [facility] [address] Sodium [Moles/Vol] 134 mmol/L Low 136-145 [facility] Comment on above: Performed By: #### L [id number] ####[facility] ([facility])[address] [facility] [address] Urea nitrogen [Mass/Vol] 10 mg/dL Normal 7-25 [facility] Comment on above: Performed By: #### L [id number] ####[facility] ([facility])[address] [facility] [address] UREA NITROGEN/CREATININE (MASS RATIO) IN SER/PLAS 12.8 Normal [facility] Comment on above: Performed By: #### L [id number] ####[facility] ([facility])[address] [facility] [address] CBCon 06-27-2023 Erythrocyte distribution width (RBC) [Ratio] 15.9 % High 11.5-15.0 [facility] Comment on above: Performed By: #### L [id number] ####[facility] ([facility])[address] [facility] [place] [address] ERYTHROCYTE MEAN CORPUSCULAR HEMOGLOBIN CONCENTRATION (G/DL) BY AUTOMATED 34.4 g/dL Normal 32.0-35.0 [facility] Comment on above: Performed By: #### L [id number] ####[facility] ([facility] [place] [address] Hematocrit (Bld) [Volume fraction] 21.8 % Low 39.0-55.0 [facility] Comment on above: Performed By: #### L [id number] ####[facility] ([facility] [place] [address] Hemoglobin (Bld) [Mass/Vol] 7.5 g/dL Low 13.0-17.0 [facility] Comment on above: Performed By: #### L [id number] ####[facility] ([facility] [place] [address] IMMATURE PLATELET FRACTION % 4.8 % Normal 0.8-6.3 [facility] Comment on above: Performed By: #### L [id number] ####[facility] ([facility] [place] [address] MCH (RBC) [Entitic mass] 30.2 pg Normal 27.0-33.0 [facility] Comment on above: Performed By: #### L [id number] ####[facility] ([facility] [place] [address] MCV (RBC) [Entitic vol] 87.9 fL Normal 82.0-98.0 [facility] Comment on above: Performed By: #### L [id number] ####[facility] ([facility] [place] [address] PLATELETS (10*3/UL) IN BLOOD AUTOMATED COUNT 116 10*3/uL Low 150-400 [facility] Comment on above: Performed By: #### L [id number] ####[facility] ([facility] [place] [address] RBC (Bld) [#/Vol] 2.48 10*6/uL Low 4.20-5.70 [facility] Comment on above: Performed By: #### L [id number] ####[facility] ([facility])[address] [place] [address] WBC (Bld) [#/Vol] 5.34 10*3/uL Normal 4.00-10.60 [facility] Comment on above: Performed By: #### L [id number] ####[facility] ([facility])[address] [place] [address] CONSULTon 06-27-2023 CONSULT Normal [facility] MAGNESIUMon 06-27-2023 Magnesium [Mass/Vol] 2.0 mg/dL Normal 1.9-2.7 [facility] Comment on above: Performed By: #### L [id number] ####[facility] ([facility])[address] [place] [address] PHOSPHORUSon 06-27-2023 Magnesium [Mass/Vol] 4.2 mg/dL Normal 2.5-5.0 [facility] Comment on above: Performed By: #### L [id number] ####[facility] ([facility])[address] [place] [address] POCT GLUCOSE METER UNSOLICIT ED RESULTSon 06-27-2023 Glucose [Mass/Vol] 154 mg/dL High 70-105 [facility] Comment on above: Order Comment: Waive d Testing in the ED is performed under the ED CLIA certificate #[id number]. Result Comment: mer jha Performed By: #### L [id number] ####[facility] ([id number] [facility] [place] [address] Glucose [Mass/Vol] 114 mg/dL High 70-105 [facility] Comment on above: Order Comment: Waive d Testing in the ED is performed under the ED CLIA certificate #[id number]. Result Comment: mer jha Performed By: #### L [id number] ####[facility] ([facility])[address] [place] [address] Glucose [Mass/Vol] 108 mg/dL High 70-105 [facility] Comment on above: Order Comment: Waive d Testing in the ED is performed under the ED CLIA certificate #[id number]. Result Comment: mer abhijeet Performed By: #### L [id number] ####[facility] ([facility])[address] [place] [address] Glucose [Mass/Vol] 112 mg/dL High 70-105 [facility] Comment on above: Order Comment: Waive d Testing in the ED is performed under the ED CLIA certificate #[id number]. Result Comment: mmcc gabo Performed By: #### L [id number] ####[facility] ([facility])[address] [place] [address] Glucose [Mass/Vol] 111 mg/dL High 70-105 [facility] Comment on above: Order Comment: Waive d Testing in the ED is performed under the ED CLIA certificate #[id number]. Result Comment: mmcc gabo Performed By: #### L [id number] ####[facility] ([facility])[address] [place] [address] Glucose [Mass/Vol] 120 mg/dL High 70-105 [facility] Comment on above: Order Comment: Waive d Testing in the ED is performed under the ED CLIA certificate #[id number]. Result Comment: mmcc gabo Performed By: #### L [id number] ####[facility] ([facility])[address] [place] [address] Glucose [Mass/Vol] 128 mg/dL High 70-105 [facility] Comment on above: Order Comment: Waive d Testing in the ED is performed under the ED CLIA certificate #[id number]. Result Comment: mmcc gabo Performed By: #### L [id number] ####[facility] ([facility])[address] [place] [address] PROTIME-INRon 06-27-2023 INR IN PPP BY COAGULATION ASSAY 1.30 High 0.90-1.10 [facility] Comment on above: [...] CHEST 1995;[id number]. Performed By: #### L [id number] ####[facility] [employer])[address] [place] [address] PROTHROMBIN TIME (PT) IN PPP BY COAGULATION ASSAY 16.3 Seconds High 12.3-14.8 [facility] Comment on above: Order Comment: On ar rival to SICU Performed By: #### L [id number] ####[facility] [employer])[address] [place] [address] 30on 06-26-2023 30 Normal [facility] 30 Normal [facility] 30 Normal [facility] ANESon 06-26-2023 ANES Normal [facility] APTTon 06-26-2023 ACTIVATED PARTIAL THROMBOPLASTIN TIME IN PPP BY COAGULATION ASSAY 30.1 Seconds Normal 25.0-35.0 [facility] Comment on above: Result Comment: Clin ical significance of the APTT is questionable in the presence of heparin. Performed By: #### L [id number] ####[facility] [employer])[address] [place] [address] ACTIVATED PARTIAL THROMBOPLASTIN TIME IN PPP BY COAGULATION ASSAY 29.1 Seconds Normal 25.0-35.0 [facility] Comment on above: Order Comment: Pre-o p diagnosis:Aortic valve disorder [I35.9] Result Comment: Clin ical significance of the APTT is questionable in the presence of heparin. Performed By: #### L [id number] ####[facility] ([facility])[address] [place] [address] ACTIVATED PARTIAL THROMBOPLASTIN TIME IN PPP BY COAGULATION ASSAY 31.8 Seconds Normal 25.0-35.0 [facility] Comment on above: Result Comment: Clin ical significance of the APTT is questionable in the presence of heparin. Performed By: #### L [id number] ####[facility] ([facility])[address] [place] [address] ARTERIAL BLOOD GAS WITH IONI TASCETD CALCIUMon 06-26-2023 Base excess Calc (Bld) [Moles/Vol] -3.3000 mmol/L Low -2.0-3.0 [facility] Comment on above: Performed By: #### L [id number] ####[facility] [id number] [place] [address] [facility] CALCIUM IONIZED (MMOL/L) IN BLOOD 1.09 mmol/L Low 1.15-1.33 [facility] Comment on above: Performed By: #### L [id number] ####[facility] [id number] [place] [address] [place] CO2 (Bld) [Partial pressure] 35 mm[Hg] Normal 35-48 [facility] Comment on above: Performed By: #### L [id number] ####[facility] [id number] [place] [address] [place] FIO2 40 % Normal [facility] Comment on above: Performed By: #### L [id number] ####[facility] [id number] [place] [address] [place] HCO3 (Bld) [Moles/Vol] 21.2 mmol/L Normal 21.0-28.0 [facility] Comment on above: Performed By: #### L [id number] ####[facility] [id number] [place] [address] [facility] Oxygen (Bld) [Partial pressure] 118 mm[Hg] High 83-100 [facility] Comment on above: Performed By: #### L [id number] ####[facility] [id number] [place] [address] [facility] OXYGEN SATURATION (%) IN ARTERIAL BLOOD 98.8 % High 94.0-98.0 [facility] Comment on above: Performed By: #### L [id number] ####[facility] [id number] [place] [address] [facility] PEEP 6 cmH2O Normal [facility] Comment on above: Performed By: #### L [id number] ####[facility] RESPIR[facility] [id number] [place] [address] [facility] pH (Bld) 7.39 [pH] Normal 7.35-7.45 [facility] Comment on above: Performed By: #### L [id number] ####[facility] RESPIR[facility] [id number] [place] [address] [facility] PRESSURE SUPPORT 12 Normal [facility] Comment on above: Performed By: #### L [id number] ####[facility] [id number] [place] [address] [facility] SOURCE OF OXYGEN Bi-PAP Normal [facility] Comment on above: Performed By: #### L [id number] ####[facility]IR[facility] [id number] [place] [address] [facility] Base excess Calc (Bld) [Moles/Vol] -5.8000 mmol/L Low -2.0-3.0 [facility] Comment on above: Performed By: #### L [id number] ####[facility] [id number] [place] [address] [facility] CALCIUM IONIZED (MMOL/L) IN BLOOD 1.19 mmol/L Normal 1.15-1.33 [facility] Comment on above: Performed By: #### L [id number] ####[facility] RESPIRATORY [id number] [address] CO2 (Bld) [Partial pressure] 44 mm[Hg] Normal 35-48 [facility] Comment on above: Performed By: #### L [id number] ####[facility] RESPIR[facility]ORY [id number] [address] FIO2 40 % Normal [facility] Comment on above: Performed By: #### L [id number] ####[facility] RESPIR[facility] [id number] [address] HCO3 (Bld) [Moles/Vol] 20.7 mmol/L Low 21.0-28.0 [facility] Comment on above: Performed By: #### L [id number] ####[facility] RESPIR[facility]ORY [id number] [place] [address] Oxygen (Bld) [Partial pressure] 102 mm[Hg] High 83-100 [facility] Comment on above: Performed By: #### L [id number] ####[facility] RESPIR[facility]ORY [id number] [place] [address] OXYGEN SATURATION (%) IN ARTERIAL BLOOD 99.5 % High 94.0-98.0 [facility] Comment on above: Performed By: #### L [id number] ####[facility] RESPIR[facility] [id number] [address] PEEP 6 cmH2O Normal [facility] Comment on above: Performed By: #### L [id number] ####[facility] RESPIR[facility] [id number] pH (Bld) 7.28 [pH] Low 7.35-7.45 [facility] Comment on above: Performed By: #### L [id number] ####[facility] RES[facility]IR[facility] [id number] [place] [address] PRESSURE SUPPORT 12 Normal [facility] Comment on above: Performed By: #### L [id number] ####[facility] RES[facility]IR[facility] [id number] [place] [address] SOURCE OF OXYGEN Bi-PAP Normal [facility] Comment on above: Performed By: #### L [id number] ####[facility] RESPIR[facility] [id number] [place] [address] [place] BASIC METABOLIC PANELon 03-2 Anion gap [Moles/Vol] 10 mmol/L Normal 7- [facility] Comment on above: Performed By: #### L [id number] ####[facility] ([facility])[address] [place] [address] Calcium [Mass/Vol] 8.1 mg/dL Low 8.6-10.3 [facility] Comment on above: Performed By: #### L [id number] ####[facility] ([facility])[address] [place] [address] Chloride [Moles/Vol] 108 mmol/L High 98-107 [facility] Comment on above: Performed By: #### L [id number] ####[facility] ([facility])[address] [place] [address] CO2 [Moles/Vol] 24 mmol/L Normal 21- [facility] Comment on above: Performed By: #### L [id number] ####[facility] ([facility])[address] [place] [address] Creatinine [Mass/Vol] 0.72 mg/dL Normal 0.70-1.30 [facility] Comment on above: Performed By: #### L [id number] ####[facility] ([facility])[address] [place] [address] GLOMERULAR FILTRATION RATE ML/MIN/1.73 SQ M.PREDICTED 111.3 mL/min/1.73m*2 Normal >60.0 [facility] Comment on above: Result Comment: The [facility]???s estimated glomerular filtration rate (eGFR) [...] of individuals. Performed By: #### L [id number] ####[facility] ([facility])[address] [place] [address] Glucose [Mass/Vol] 151 mg/dL High 70-100 [facility] Comment on above: Performed By: #### L [id number] ####[facility] ([facility])[address] [place] [address] Potassium [Moles/Vol] 4.1 mmol/L Normal 3.5-5.1 [facility] Comment on above: Performed By: #### L [id number] ####[facility] ([facility])[address] [place] [address] Sodium [Moles/Vol] 138 mmol/L Normal 136-145 [facility] Comment on above: Performed By: #### L [id number] ####[facility] ([facility])[address] [place] [address] Urea nitrogen [Mass/Vol] 11 mg/dL Normal 7-25 [facility] Comment on above: Performed By: #### L [id number] ####[facility] ([facility])[address] [place] [address] UREA NITROGEN/CREATININE (MASS RATIO) IN SER/PLAS 15.3 Normal [facility] Comment on above: Performed By: #### L [id number] ####[facility] ([facility])[address] [place] [address] Anion gap [Moles/Vol] 14 mmol/L Normal 7-20 [facility] Comment on above: Order Comment: Pre-o p diagnosis:Aortic valve disorder [I35.9] Performed By: #### L [id number] ####[facility] ([facility])[address] [place] [address] Calcium [Mass/Vol] 7.9 mg/dL Low 8.6-10.3 [facility] Comment on above: Order Comment: Pre-o p diagnosis:Aortic valve disorder [I35.9] Performed By: #### L [id number] ####[facility] ([facility])[address] [facility] [place] [address] Chloride [Moles/Vol] 107 mmol/L Normal 98-107 [facility] Comment on above: Order Comment: Pre-o p diagnosis:Aortic valve disorder [I35.9] Performed By: #### L [id number] ####[facility] ([facility])[address] [place] [address] CO2 [Moles/Vol] 21 mmol/L Normal 21-[address] [facility] Comment on above: Order Comment: Pre-o p diagnosis:Aortic valve disorder [I35.9] Performed By: #### L [id number] ####[facility] ([facility])[address] [facility] [address] Creatinine [Mass/Vol] 0.76 mg/dL Normal 0.70-1.30 [facility] Comment on above: Order Comment: Pre-o p diagnosis:Aortic valve disorder [I35.9] Performed By: #### L [id number] ####[facility] ([facility])[address] [facility] [address] GLOMERULAR FILTRATION RATE ML/MIN/1.73 SQ M.PREDICTED 109.5 mL/min/1.73m*2 Normal >60.0 [facility] Comment on above: Order Comment: Pre-o p diagnosis:Aortic valve disorder [I35.9] Result Comment: The [facility]???s estimated glomerular filtration rate (eGFR) [...] of individuals. Performed By: #### L [id number] ####[facility] ([facility])[address] [place] [address] Glucose [Mass/Vol] 194 mg/dL High 70-100 [facility] Comment on above: Order Comment: Pre-o p diagnosis:Aortic valve disorder [I35.9] Performed By: #### L [id number] ####[facility] [place] [address] Potassium [Moles/Vol] 3.9 mmol/L Normal 3.5-5.1 [facility] Comment on above: Order Comment: Pre-o p diagnosis:Aortic valve disorder [I35.9] Performed By: #### L [id number] ####[facility] ([facility])[address] [place] [address] Sodium [Moles/Vol] 138 mmol/L Normal 136-145 [facility] Comment on above: Order Comment: Pre-o p diagnosis:Aortic valve disorder [I35.9] Performed By: #### L [id number] ####[facility] ([facility])[address] [place] [address] Urea nitrogen [Mass/Vol] 11 mg/dL Normal 7-25 [facility] Comment on above: Order Comment: Pre-o p diagnosis:Aortic valve disorder [I35.9] Performed By: #### L [id number] ####[facility] [place] [address] UREA NITROGEN/CREATININE (MASS RATIO) IN SER/PLAS 14.5 Normal [facility] Comment on above: Order Comment: Pre-o p diagnosis:Aortic valve disorder [I35.9] Performed By: #### L [id number] ####[facility] ([facility])[address] [place] [address] CBCon 06-26-2023 Erythrocyte distribution width (RBC) [Ratio] 15.5 % High 11.5-15.0 [facility] Comment on above: Performed By: #### L [id number] ####[facility] ([facility] [place] [address] ERYTHROCYTE MEAN CORPUSCULAR HEMOGLOBIN CONCENTRATION (G/DL) BY AUTOMATED 34.0 g/dL Normal 32.0-35.0 [facility] Comment on above: Performed By: #### L [id number] ####[facility] ([facility])[address] [place] [address] Hematocrit (Bld) [Volume fraction] 29.4 % Low 39.0-55.0 [facility] Comment on above: Performed By: #### L [id number] ####[facility] ([facility])[address] [place] [address] Hemoglobin (Bld) [Mass/Vol] 10.0 g/dL Low 13.0-17.0 [facility] Comment on above: Performed By: #### L [id number] ####[facility] ([facility])[address] [place] [address] IMMATURE PLATELET FRACTION % 3.8 % Normal 0.8-6.3 [facility] Comment on above: Performed By: #### L [id number] ####[facility] ([facility])[address] [place] [address] MCH (RBC) [Entitic mass] 29.6 pg Normal 27.0-33.0 [facility] Comment on above: Performed By: #### L [id number] ####[facility] ([facility])[address] [place] [address] MCV (RBC) [Entitic vol] 87.0 fL Normal 82.0-98.0 [facility] Comment on above: Performed By: #### L [id number] ####[facility] ([facility])[address] [place] [address] PLATELETS (10*3/UL) IN BLOOD AUTOMATED COUNT 108 10*3/uL Low 150-400 [facility] Comment on above: Performed By: #### L [id number] ####[facility] ([facility] [place] [address] RBC (Bld) [#/Vol] 3.38 10*6/uL Low 4.20-5.70 [facility] Comment on above: Performed By: #### L [id number] ####[facility] ([facility] [place] [address] WBC (Bld) [#/Vol] 6.87 10*3/uL Normal 4.00-10.60 [facility] Comment on above: Performed By: #### L [id number] ####[facility] ([facility])[address] [place] [address] Erythrocyte distribution width (RBC) [Ratio] 15.3 % High 11.5-15.0 [facility] Comment on above: Order Comment: Pre-o p diagnosis:Aortic valve disorder [I35.9] Performed By: #### L [id number] ####[facility] ([facility])[address] [place] [address] ERYTHROCYTE MEAN CORPUSCULAR HEMOGLOBIN CONCENTRATION (G/DL) BY AUTOMATED 34.5 g/dL Normal 32.0-35.0 [facility] Comment on above: Order Comment: Pre-o p diagnosis:Aortic valve disorder [I35.9] Performed By: #### L [id number] ####[facility] ([facility])[address] [place] [address] Hematocrit (Bld) [Volume fraction] 29.3 % Low 39.0-55.0 [facility] Comment on above: Order Comment: Pre-o p diagnosis:Aortic valve disorder [I35.9] Performed By: #### L [id number] ####[facility] ([facility])[address] [place] [address] Hemoglobin (Bld) [Mass/Vol] 10.1 g/dL Low 13.0-17.0 [facility] Comment on above: Order Comment: Pre-o p diagnosis:Aortic valve disorder [I35.9] Performed By: #### L [id number] ####[facility] ([facility])[address] [place] [address] IMMATURE PLATELET FRACTION % 4.1 % Normal 0.8-6.3 [facility] Comment on above: Order Comment: Pre-o p diagnosis:Aortic valve disorder [I35.9] Performed By: #### L [id number] ####[facility] ([facility])[address] [place] [address] MCH (RBC) [Entitic mass] 29.9 pg Normal 27.0-33.0 [facility] Comment on above: Order Comment: Pre-o p diagnosis:Aortic valve disorder [I35.9] Performed By: #### L [id number] ####[facility] ([facility])[address] [place] [address] MCV (RBC) [Entitic vol] 86.7 fL Normal 82.0-98.0 [facility] Comment on above: Order Comment: Pre-o p diagnosis:Aortic valve disorder [I35.9] Performed By: #### L [id number] ####[facility] ([facility])[address] [place] [address] PLATELETS (10*3/UL) IN BLOOD AUTOMATED COUNT 135 10*3/uL Low 150-400 [facility] Comment on above: Order Comment: Pre-o p diagnosis:Aortic valve disorder [I35.9] Performed By: #### L [id number] ####[facility] ([facility])[address] [place] [address] RBC (Bld) [#/Vol] 3.38 10*6/uL Low 4.20-5.70 [facility] Comment on above: Order Comment: Pre-o p diagnosis:Aortic valve disorder [I35.9] Performed By: #### L [id number] ####[facility] ([facility])[address] [place] [address] WBC (Bld) [#/Vol] 9.24 10*3/uL Normal 4.00-10.60 [facility] Comment on above: Order Comment: Pre-o p diagnosis:Aortic valve disorder [I35.9] Performed By: #### L [id number] ####[facility] ([facility])[address] [place] [address] CBC WITH AUTO DIFFERENTIALon 06-26-2023 Basophils (Bld) [#/Vol] 0.04 10*3/uL Normal 0.00-0.20 [facility] Comment on above: Performed By: #### L [id number] ####[facility] (BEAKER)[address] [place] [address] Basophils/100 WBC (Bld) 0.8 % Normal 0.0-1.0 [facility] Comment on above: Performed By: #### L [id number] ####[facility] ([facility])[address] [place] [address] Eosinophils (Bld) [#/Vol] 0.28 10*3/uL Normal 0.00-0.50 [facility] Comment on above: Performed By: #### L [id number] ####[facility] (BE[facility]ER)[address] [place] [address] Eosinophils/100 WBC (Bld) 5.9 % Normal 0.0-6.0 [facility] Comment on above: Performed By: #### L [id number] ####[facility] ([facility]ER)[address] [place] [address] Erythrocyte distribution width (RBC) [Ratio] 15.9 % High 11.5-15.0 [facility] Comment on above: Performed By: #### L [id number] ####[facility] ([facility])[address] [place] [address] ERYTHROCYTE MEAN CORPUSCULAR HEMOGLOBIN CONCENTRATION (G/DL) BY AUTOMATED 33.7 g/dL Normal 32.0-35.0 [facility] Comment on above: Performed By: #### L [id number] ####[facility] (BE[facility]ER)[address] [place] [address] Hematocrit (Bld) [Volume fraction] 32.6 % Low 39.0-55.0 [facility] Comment on above: Performed By: #### L [id number] ####[facility] (BE[facility]ER)[address] [place] [address] Hemoglobin (Bld) [Mass/Vol] 11.0 g/dL Low 13.0-17.0 [facility] Comment on above: Performed By: #### L [id number] ####[facility] ([facility])[address] [place] [address] Immature granulocytes (Bld) [#/Vol] 0.01 10*3/uL Normal 0.00-0.20 [facility] Comment on above: Performed By: #### L [id number] ####[facility] ([facility])[address] [place] [address] Immature granulocytes/100 WBC (Bld) 0.2 % Normal 0.0-1.0 [facility] Comment on above: Performed By: #### L [id number] ####[facility] ([facility])[address] [place] [address] Lymphocytes (Bld) [#/Vol] 0.86 10*3/uL Low 1.20-4.00 [facility] Comment on above: Performed By: #### L [id number] ####[facility] ([facility])[address] [place] [address] Lymphocytes/100 WBC (Bld) 18.3 % Low 20.0-45.0 [facility] Comment on above: Performed By: #### L [id number] ####[facility] ([facility])[address] [place] [address] MCH (RBC) [Entitic mass] 29.4 pg Normal 27.0-33.0 [facility] Comment on above: Performed By: #### L [id number] ####[facility] ([facility] [place] [address] MCV (RBC) [Entitic vol] 87.2 fL Normal 82.0-98.0 [facility] Comment on above: Performed By: #### L [id number] ####[facility] ([facility] [place] [address] Monocytes (Bld) [#/Vol] 0.50 10*3/uL Normal 0.10-1.00 [facility] Comment on above: Performed By: #### L [id number] ####[facility] (BE[facility])[address] [place] [address] Monocytes/100 WBC (Bld) 10.6 % Normal 5.0-12.0 [facility] Comment on above: Performed By: #### L [id number] ####[facility] (BE[facility])[address] [place] [address] Neutrophils (Bld) [#/Vol] 3.02 10*3/uL Normal 1.60-7.60 [facility] Comment on above: Performed By: #### L [id number] ####[facility] (BEAKER)[address] [place] [address] Neutrophils/100 WBC (Bld) 64.2 % Normal 40.0-72.0 [facility] Comment on above: Performed By: #### L [id number] ####[facility] ([facility])[address] [place], [place] [address] NRBC (PER 100 WBCS) BY AUTOMATED COUNT 0.0 % Normal 0 [facility] Comment on above: Performed By: #### L [id number] ####[facility] (BEAKER)[address] [place], [place] [address] PLATELETS (10*3/UL) IN BLOOD AUTOMATED COUNT 159 10*3/uL Normal 150-400 [facility] Comment on above: Performed By: #### L [id number] ####[facility] (BEAKER)[address] [place] [address] RBC (Bld) [#/Vol] 3.74 10*6/uL Low 4.20-5.70 [facility] Comment on above: Performed By: #### L [id number] ####[facility] (BEAKER)[address] [place] [address] WBC (Bld) [#/Vol] 4.71 10*3/uL Normal 4.00-10.60 [facility] Comment on above: Performed By: #### L [id number] ####[facility] (BEAKER)[address] [place] [address] CO-OXIMETRYon 06-26-2023 CARBOXYHEMOGLOBIN/HE MOGLOBIN TOTAL % IN BLOOD 2.3 % Normal [facility] Comment on above: Performed By: #### L [id number] ####[facility] RESPIRATORY [id number] [place] [address] [place] Hemoglobin (Bld) [Mass/Vol] 9.5 g/dL Normal [facility] Comment on above: Performed By: #### L [id number] ####[facility] RESPIRAT[facility] [id number] [place] [address] [place] METHEMOGLOBIN/100 IN BLOOD 0.5 % Normal 0.0-1.5 [facility] Comment on above: Performed By: #### L [id number] ####[facility] RESPIRATORY [id number] [place] [address] [place] Oxygen saturation in Blood 61.9 % Normal [facility] Comment on above: Performed By: #### L [id number] ####[facility] RESPIRATORY [id number] [place] [address] [place] OXYGENATED HEMOGLOBIN IN BLOOD 60.2 % Normal [facility] Comment on above: Performed By: #### L [id number] ####[facility] RESPIRATORY [id number] [place] [address] [place] COMPREHENSIVE METABOLIC PANE Braulio 06-26-2023 Albumin [Mass/Vol] 4.1 g/dL Normal 3.5-5.7 [facility] Comment on above: Performed By: #### L [id number] ####[facility] [place] [address] ALP [Catalytic activity/Vol] 51 U/L Normal 34-104 [facility] Comment on above: Performed By: #### L [id number] ####[facility] (BEAKER)[address] [place] [address] ALT [Catalytic activity/Vol] 13 U/L Normal 7-52 [facility] Comment on above: Performed By: #### L [id number] ####[facility] (BEAKER)[address] [place] [address] Anion gap [Moles/Vol] 10 mmol/L Normal 7-20 [facility] Comment on above: Performed By: #### L [id number] ####[facility] (BEAKER)[address] [place] [address] AST [Catalytic activity/Vol] 12 U/L Low 13-39 [facility] Comment on above: Performed By: #### L [id number] ####[facility] [place] [address] Bilirubin [Mass/Vol] 0.9 mg/dL Normal 0.3-1.0 [facility] Comment on above: Performed By: #### L [id number] ####[facility] (BEAKER)[address] [place] [address] Calcium [Mass/Vol] 8.6 mg/dL Normal 8.6-10.3 [facility] Comment on above: Performed By: #### L [id number] ####[facility] ([facility] [place] [address] Chloride [Moles/Vol] 104 mmol/L Normal 98-107 [facility] Comment on above: Performed By: #### L [id number] ####[facility] (BEAKER)[address] [place] [address] CO2 [Moles/Vol] 26 mmol/L Normal 21-[address] [facility] Comment on above: Performed By: #### L [id number] ####[facility] (BEAKER)[address] [place] [address] Creatinine [Mass/Vol] 0.82 mg/dL Normal 0.70-1.30 [facility] Comment on above: Performed By: #### L [id number] ####[facility] (BEAKER)[address] [place] [address] GLOMERULAR FILTRATION RATE ML/MIN/1.73 SQ M.PREDICTED 107.0 mL/min/1.73m*2 Normal >60.0 [facility] Comment on above: Result Comment: The [facility]???s estimated glomerular filtration rate (eGFR) [...] of individuals. Performed By: #### L [id number] ####[facility] (AKER)[address] [place] [address] Glucose [Mass/Vol] 97 mg/dL Normal 70-100 [facility] Comment on above: Performed By: #### L [id number] ####[facility] (BEAKER)[address] [place] [address] Potassium [Moles/Vol] 4.0 mmol/L Normal 3.5-5.1 [facility] Comment on above: Performed By: #### L [id number] ####[facility] (BEAKER)[address] [place] [address] Protein [Mass/Vol] 6.0 g/dL Normal 6.0-8.3 [facility] Comment on above: Performed By: #### L [id number] ####[facility] (BEAKER)[address] [place] [address] Sodium [Moles/Vol] 136 mmol/L Normal 136-145 [facility] Comment on above: Performed By: #### L [id number] ####[facility] (BEAKER)[address] [place] [address] Urea nitrogen [Mass/Vol] 12 mg/dL Normal 7-25 [facility] Comment on above: Performed By: #### L [id number] ####[facility] (BEAKER)[address] [place] [address] UREA NITROGEN/CREATININE (MASS RATIO) IN SER/PLAS 14.6 Normal [facility] Comment on above: Performed By: #### L [id number] ####[facility] (BEAKER)[address] [place] [address] CONSULTon 06-26-2023 CONSULT Normal [facility] DEVICE CULTUREon 06-26-2023 Bacteria identified Cx Nom (Unsp spec) No growth at [address] [facility] Comment on above: Order Comment: RIGHT ARM PICC LINE CULTURE Performed By: #### D EVICE CULTURE ####[facility] (BEAKER)[address] [place] [address] FIBRINOGENon 06-26-2023 Magnesium [Mass/Vol] 402 mg/dL Normal 150-425 [facility] Comment on above: Order Comment: Pre-o p diagnosis:Aortic valve disorder [I35.9] Performed By: #### L [id number] ####[facility] (BEAKER)[address] [place] [address] HISTOLOGY - TISSUE EXAMon LAB AP CASE REPORT Normal [facility] Comment on above: Order Comment: Pre-o p diagnosis:Aortic valve disorder [I35.9] Result Comment: Surg ical Pathology Case: [id number] Provider: Paul George MD Collected: 06/26/2023 1153Ordering Location: [facility] Main Operating Room Received: 06/26/2023 1354Pathologist: LILIA Prakashpecimen: Other, AORTIC VALVE LEAFLET FOR HISTOLOGY Performed By: #### L [id number] ####[facility] (BEAKER)[address] [place] [address] LAB AP CLINICAL INFORMATION Normal [facility] Comment on above: Order Comment: Pre-o p diagnosis:Aortic valve disorder [I35.9] Result Comment: Post -Op [id number] - Aortic valve disorder [ICD-10-CM] Performed By: #### L [id number] ####[facility] (BEAKER)[address] [place] [address] LAB AP GROSS DESCRIPTION A. Other. Normal [facility] Comment on above: [...] identified. The specimen is serially sectioned and civil rights representative sections are submitted in 1 cassette.Nai Sheth, Pathologists' Diffusion Operator Jaspreet Chawla Pathologists' Diffusion Operator Performed By: #### L [id number] ####[facility] ([facility])[address] [place] [address] LAB AP MICROSCOPIC DESCRIPTION Microscopic examination performed. Normal [facility] Comment on above: Order Comment: Pre-o p diagnosis:Aortic valve disorder [I35.9] Performed By: #### L [id number] ####[facility] ([facility])[address] [place] [address] LAB AP REPORT FINAL DIAGNOSIS NARRATIVE Normal [facility] Comment on above: Order Comment: Pre-o p diagnosis:Aortic valve disorder [I35.9] Result Comment: A. A ortic valve leaflet, removal:- Valvular tissue with fibrinoid necrosis and acute inflammation. Performed By: #### L [id number] ####[facility] ([facility])[address] [place] [address] LACTIC ACID WITH 4 HOUR REFL EXon 06-26-2023 LACTATE (MMOL/L) IN SER/PLAS 1.5 mmol/L Normal 0.5-2.2 [facility] Comment on above: Order Comment: Pre-o p diagnosis:Aortic valve disorder [I35.9] Performed By: #### L [id number] ####[facility] ([facility])[address] [place] [address] LACTATE (MMOL/L) IN SER/PLAS 3.1 mmol/L Critically high 0.5-2.2 [facility] Comment on above: Order Comment: Pre-o p diagnosis:Aortic valve disorder [I35.9] Performed By: #### L [id number] ####[facility] ([facility])[address] [place] [address] LACTIC ACID, PLASMAon 2023 LACTATE (MMOL/L) IN SER/PLAS 2.4 mmol/L High 0.5-2.2 [facility] Comment on above: Performed By: #### L [id number] ####[facility] ([facility])[address] [place] [address] MAGNESIUMon 06-26-2023 Magnesium [Mass/Vol] 2.4 mg/dL Normal 1.9-2.7 [facility] Comment on above: Performed By: #### L [id number] ####[facility] ([facility])[address] [place] [address] Magnesium [Mass/Vol] 2.6 mg/dL Normal 1.9-2.7 [facility] Comment on above: Order Comment: Pre-o p diagnosis:Aortic valve disorder [I35.9] Performed By: #### L [id number] ####[facility] ([facility])[address] [place] [address] Magnesium [Mass/Vol] 2.0 mg/dL Normal 1.9-2.7 [facility] Comment on above: Performed By: #### L [id number] ####[facility] ([facility])[address] [place] [address] OPNOTEon 06-26-2023 OPNOTE Normal [facility] PHOSPHORUSon 06-26-2023 Magnesium [Mass/Vol] 3.9 mg/dL Normal 2.5-5.0 [facility] Comment on above: Performed By: #### L [id number] ####[facility] (BEAKER)[address] [place] [address] Magnesium [Mass/Vol] 4.2 mg/dL Normal 2.5-5.0 [facility] Comment on above: Performed By: #### L [id number] ####[facility] (BEAKER)[address] [place] [address] POCT ACTIVATED CLOTTING TIME UNSOLICITED RESULTSon 06-26-2023 POC ACTIVATED CLOTTING TIME 143 sec Normal 82-152 [facility] Comment on above: Performed By: #### L [id number] ####[facility] (BEAKER)[address] [place] [address] POC ACTIVATED CLOTTING TIME 148 sec Normal 82-152 [facility] Comment on above: Performed By: #### L [id number] ####[facility] (BEAKER)[address] [place] [address] POC ACTIVATED CLOTTING TIME 473 sec High 82-152 [facility] Comment on above: Performed By: #### L [id number] ####[facility] (BEAKER)[address] [place] [address] POC ACTIVATED CLOTTING TIME 562 sec High 82-152 [facility] Comment on above: Performed By: #### L [id number] ####[facility] (BEAKER)[address] [place] [address] POC ACTIVATED CLOTTING TIME 602 sec High 82-152 [facility] Comment on above: Performed By: #### L [id number] ####[facility] (BEAKER)[address] [place] [address] POC ACTIVATED CLOTTING TIME 679 sec High 82-152 [facility] Comment on above: Performed By: #### L [id number] ####[facility] (BEAKER)[address] [place] [address] POC ACTIVATED CLOTTING TIME 772 sec High 82-152 [facility] Comment on above: Performed By: #### L [id number] ####[facility] (BEAKER)[address] [place] [address] POC ACTIVATED CLOTTING TIME 772 sec High 82-152 [facility] Comment on above: Performed By: #### L [id number] ####[facility] ([facility])[address] [place] [address] POC ACTIVATED CLOTTING TIME 701 sec High 82-152 [facility] Comment on above: Performed By: #### L [id number] ####[facility] ([facility])[address] [place] [address] POC ACTIVATED CLOTTING TIME 154 sec High 82-152 [facility] Comment on above: Performed By: #### L [id number] ####[facility] ([facility])[address] [place] [address] POCT GLUCOSE METER UNSOLICIT ED RESULTSon 06-26-2023 Glucose [Mass/Vol] 132 mg/dL High 70-105 [facility] Comment on above: Order Comment: Waive d Testing in the ED is performed under the ED CLIA certificate #[id number]. Result Comment: mmcc gabo Performed By: #### L [id number] ####[facility] ([facility])[address] [place] [address] Glucose [Mass/Vol] 126 mg/dL High 70-105 [facility] Comment on above: Order Comment: Waive d Testing in the ED is performed under the ED CLIA certificate #[id number]. Result Comment: mmcc gabo Performed By: #### L [id number] ####[facility] ([facility])[address] [place] [address] Glucose [Mass/Vol] 135 mg/dL High 70-105 [facility] Comment on above: Order Comment: Waive d Testing in the ED is performed under the ED CLIA certificate #[id number]. Result Comment: pcar r Performed By: #### L [id number] ####[facility] ([facility])[address] [place] [address] Glucose [Mass/Vol] 131 mg/dL High 70-105 [facility] Comment on above: Order Comment: Waive d Testing in the ED is performed under the ED CLIA certificate #[id number]. Result Comment: [email or web address] [email or web address] Performed By: #### L [id number] ####[facility] (BEAKER)[address] [place] [address] POCT PERFUSION PANEL UNSOLIC ITED RESULTSon 06-26-2023 CO2 [Moles/Vol] 22.0 mmol/L Normal 21.0-29.0 [facility] Comment on above: Performed By: #### L [id number] ####[facility] (BEAKER)[address] [place] [address] Glucose [Mass/Vol] 197 mg/dL High 70-105 [facility] Comment on above: Performed By: #### L [id number] ####[facility] (BEAKER)[address] [place] [address] HCO3 (Bld) [Moles/Vol] 20.8 mmol/L Low 23.0-28.0 [facility] Comment on above: Performed By: #### L [id number] ####[facility] (BEAKER)[address] [place] [address] Hematocrit (Bld) [Volume fraction] 30 % Low 38-51 [facility] Comment on above: Performed By: #### L [id number] ####[facility] (BEAKER)[address] [place] [address] Hemoglobin (Bld) [Mass/Vol] 10.2 g/dL Low 12.0-17.0 [facility] Comment on above: Performed By: #### L [id number] ####[facility] (BEAKER)[address] [place] [address] POCT BASE EXCESS -4.0 mmol/L Low -2.0-3.0 [facility] Comment on above: Performed By: #### L [id number] ####[facility] (BEAKER)[address] [place] [address] POCT IONIZED CALCIUM 1.17 mmol/L Normal 1.12-1.32 [facility] Comment on above: Performed By: #### L [id number] ####[facility] (BEAKER)[address] [place] [address] POCT PCO2 36.5 mmHg Low 41.0-51.0 [facility] Comment on above: Performed By: #### L [id number] ####[facility] (BEAKER)[address] [place] [address] POCT PH 7.36 Normal 7.31-7.41 [facility] Comment on above: Performed By: #### L [id number] ####[facility] (BEAKER)[address] [place] [address] POCT PO2 240 mmHg High 80-105 [facility] Comment on above: Performed By: #### L [id number] ####[facility] (BEAKER)[address] [place] [address] POCT SO2 100 % High 95-98 [facility] Comment on above: Performed By: #### L [id number] ####[facility] (BEAKER)[address] [place] [address] Potassium [Moles/Vol] 3.9 mmol/L Normal 3.5-4.9 [facility] Comment on above: Performed By: #### L [id number] ####[facility] (BEAKER)[address] [place] [address] Sodium [Moles/Vol] 139 mmol/L Normal 138.0-146.0 [facility] Comment on above: Performed By: #### L [id number] ####[facility] (BEAKER)[address] [place] [address] CO2 [Moles/Vol] 23.0 mmol/L Normal 21.0-29.0 [facility] Comment on above: Performed By: #### L [id number] ####[facility] (BEAKER)[address] [place] [address] Glucose [Mass/Vol] 208 mg/dL High 70-105 [facility] Comment on above: Performed By: #### L [id number] ####[facility] (BEAKER)[address] [place] [address] HCO3 (Bld) [Moles/Vol] 21.6 mmol/L Low 23.0-28.0 [facility] Comment on above: Performed By: #### L [id number] ####[facility] (BEAKER)[address] [address] Hematocrit (Bld) [Volume fraction] 28 % Low 38-51 [facility] Comment on above: Performed By: #### L [id number] ####[facility] (BEAKER)[address] [place] [address] Hemoglobin (Bld) [Mass/Vol] 9.5 g/dL Low 12.0-17.0 [facility] Comment on above: Performed By: #### L [id number] ####[facility] (BEAKER)[address] [address] POCT BASE EXCESS -4.0 mmol/L Low -2.0-3.0 [facility] Comment on above: Performed By: #### L [id number] ####[facility] (BEAKER)[address] [address] POCT IONIZED CALCIUM 1.22 mmol/L Normal 1.12-1.32 [facility] Comment on above: Performed By: #### L [id number] ####[facility] (BEAKER)[address] [address] POCT PCO2 38.6 mmHg Low 41.0-51.0 [facility] Comment on above: Performed By: #### L [id number] ####[facility] (BEAKER)[address] [address] POCT PH 7.36 Normal 7.31-7.41 [facility] Comment on above: Performed By: #### L [id number] ####[facility] (BEAKER)[address] [place] [address] POCT PO2 265 mmHg High 80-105 [facility] Comment on above: Performed By: #### L [id number] ####[facility] (BEAKER)[address] [place] [address] POCT SO2 100 % High 95-98 [facility] Comment on above: Performed By: #### L [id number] ####[facility] (BEAKER)[address] [place] [address] Potassium [Moles/Vol] 3.9 mmol/L Normal 3.5-4.9 [facility] Comment on above: Performed By: #### L [id number] ####[facility] (BEAKER)[address] [place] [address] Sodium [Moles/Vol] 137 mmol/L Low 138.0-146.0 [facility] Comment on above: Performed By: #### L [id number] ####[facility] (BEAKER)[address] [place] [address] CO2 [Moles/Vol] 25.0 mmol/L Normal 21.0-29.0 [facility] Comment on above: Performed By: #### L [id number] ####[facility] (BEAKER)[address] [place] [address] Glucose [Mass/Vol] 216 mg/dL High 70-105 [facility] Comment on above: Performed By: #### L [id number] ####[facility] (BEAKER)[address] [place] [address] HCO3 (Bld) [Moles/Vol] 23.3 mmol/L Normal 23.0-28.0 [facility] Comment on above: Performed By: #### L [id number] ####[facility] (BEAKER)[address] [place] [address] Hematocrit (Bld) [Volume fraction] 28 % Low 38-51 [facility] Comment on above: Performed By: #### L [id number] ####[facility] (BEAKER)[address] [place] [address] Hemoglobin (Bld) [Mass/Vol] 9.5 g/dL Low 12.0-17.0 [facility] Comment on above: Performed By: #### L [id number] ####[facility] (BEAKER)[address] [place] [address] POCT BASE EXCESS -3.0 mmol/L Low -2.0-3.0 [facility] Comment on above: Performed By: #### L [id number] ####[facility] (BEAKER)[address] [place] [address] POCT IONIZED CALCIUM 1.29 mmol/L Normal 1.12-1.32 [facility] Comment on above: Performed By: #### L [id number] ####[facility] (BEAKER)[address] [place] [address] POCT PCO2 46.6 mmHg Normal 41.0-51.0 [facility] Comment on above: Performed By: #### L [id number] ####[facility] (BEAKER)[address] [place] [address] POCT PH 7.31 Normal 7.31-7.41 [facility] Comment on above: Performed By: #### L [id number] ####[facility] (BEAKER)[address] [place] [address] POCT PO2 348 mmHg High 80-105 [facility] Comment on above: Performed By: #### L [id number] ####[facility] (BEAKER)[address] [place] [address] POCT SO2 100 % High 95-98 [facility] Comment on above: Performed By: #### L [id number] ####[facility] (BEAKER)[address] [place] [address] Potassium [Moles/Vol] 4.7 mmol/L Normal 3.5-4.9 [facility] Comment on above: Performed By: #### L [id number] ####[facility] (BEAKER)[address] [place] [address] Sodium [Moles/Vol] 136 mmol/L Low 138.0-146.0 [facility] Comment on above: Performed By: #### L [id number] ####[facility] (BEAKER)[address] [place] [address] CO2 [Moles/Vol] 26.0 mmol/L Normal 21.0-29.0 [facility] Comment on above: Performed By: #### L [id number] ####[facility] (BEAKER)[address] [place] [address] Glucose [Mass/Vol] 173 mg/dL High 70-105 [facility] Comment on above: Performed By: #### L [id number] ####[facility] (BEAKER)[address] [place] [address] HCO3 (Bld) [Moles/Vol] 24.8 mmol/L Normal 23.0-28.0 [facility] Comment on above: Performed By: #### L [id number] ####[facility] (BEAKER)[address] [place] [address] Hematocrit (Bld) [Volume fraction] 30 % Low 38-51 [facility] Comment on above: Performed By: #### L [id number] ####[facility] (BEAKER)[address] [place] [address] Hemoglobin (Bld) [Mass/Vol] 10.2 g/dL Low 12.0-17.0 [facility] Comment on above: Performed By: #### L [id number] ####[facility] (BEAKER)[address] [place] [address] POCT BASE EXCESS 0.0 mmol/L Normal -2.0-3.0 [facility] Comment on above: Performed By: #### L [id number] ####[facility] (BEAKER)[address] [place] [address] POCT IONIZED CALCIUM 1.57 mmol/L Critically high 1.12-1.32 [facility] Comment on above: Performed By: #### L [id number] ####[facility] ([facility]AKER)[address] [place] [address] POCT PCO2 40.5 mmHg Low 41.0-51.0 [facility] Comment on above: Performed By: #### L [id number] ####[facility] [facility] [place] [address] POCT PH 7.40 Normal 7.31-7.41 [facility] Comment on above: Performed By: #### L [id number] ####[facility] ([facility])[address] [place] [address] POCT PO2 321 mmHg High 80-105 [facility] Comment on above: Performed By: #### L [id number] ####[facility] ([facility])[address] [place] [address] POCT SO2 100 % High 95-98 [facility] Comment on above: Performed By: #### L [id number] ####[facility] ([facility]AKER)[address] [place] [address] Potassium [Moles/Vol] 5.4 mmol/L High 3.5-4.9 [facility] Comment on above: Performed By: #### L [id number] ####[facility] ([facility])[address] [place] [address] Sodium [Moles/Vol] 134 mmol/L Low 138.0-146.0 [facility] Comment on above: Performed By: #### L [id number] ####[facility] ([facility]AKER)[address] [place] [address] CO2 [Moles/Vol] 25.0 mmol/L Normal 21.0-29.0 [facility] Comment on above: Performed By: #### L [id number] ####[facility] ([facility]ER)[address] [place] [address] Glucose [Mass/Vol] 171 mg/dL High 70-105 [facility] Comment on above: Performed By: #### L [id number] ####[facility] (BEAKER)[address] [place] [address] HCO3 (Bld) [Moles/Vol] 23.6 mmol/L Normal 23.0-28.0 [facility] Comment on above: Performed By: #### L [id number] ####[facility] (BEAKER)[address] [place] [address] Hematocrit (Bld) [Volume fraction] 30 % Low 38-51 [facility] Comment on above: Performed By: #### L [id number] ####[facility] (BEAKER)[address] [place] [address] Hemoglobin (Bld) [Mass/Vol] 10.2 g/dL Low 12.0-17.0 [facility] Comment on above: Performed By: #### L [id number] ####[facility] (BEAKER)[address] [place] [address] POCT BASE EXCESS -2.0 mmol/L Normal -2.0-3.0 [facility] Comment on above: Performed By: #### L [id number] ####[facility] ([facility]ER)[address] [place] [address] POCT IONIZED CALCIUM 1.12 mmol/L Normal 1.12-1.32 [facility] Comment on above: Performed By: #### L [id number] ####[facility] ([facility]AKER)[address] [place] [address] POCT PCO2 44.0 mmHg Normal 41.0-51.0 [facility] Comment on above: Performed By: #### L [id number] ####[facility] ([facility]ER)[address] [place] [address] POCT PH 7.34 Normal 7.31-7.41 [facility] Comment on above: Performed By: #### L [id number] ####[facility] (BEAKER)[address] [address] POCT PO2 390 mmHg High 80-105 [facility] Comment on above: Performed By: #### L [id number] ####[facility] ([facility]AKER)[address] [place] [address] POCT SO2 100 % High 95-98 [facility] Comment on above: Performed By: #### L [id number] ####[facility] (BEAKER)[address] [place] [address] Potassium [Moles/Vol] 5.4 mmol/L High 3.5-4.9 [facility] Comment on above: Performed By: #### L [id number] ####[facility] (BEAKER)[address] [place] [address] Sodium [Moles/Vol] 136 mmol/L Low 138.0-146.0 [facility] Comment on above: Performed By: #### L [id number] ####[facility] (BEAKER)[address] [place] [address] CO2 [Moles/Vol] 25.0 mmol/L Normal 21.0-29.0 [facility] Comment on above: Performed By: #### L [id number] ####[facility] (BEAKER)[address] [place] [address] Glucose [Mass/Vol] 184 mg/dL High 70-105 [facility] Comment on above: Performed By: #### L [id number] ####[facility] (BEAKER)[address] [place] [address] HCO3 (Bld) [Moles/Vol] 23.7 mmol/L Normal 23.0-28.0 [facility] Comment on above: Performed By: #### L [id number] ####[facility] (BEAKER)[address] [place] [address] Hematocrit (Bld) [Volume fraction] 33 % Low 38-51 [facility] Comment on above: Performed By: #### L [id number] ####[facility] (BEAKER)[address] [place] [address] Hemoglobin (Bld) [Mass/Vol] 11.2 g/dL Low 12.0-17.0 [facility] Comment on above: Performed By: #### L [id number] ####[facility] (BEAKER)[address] [place] [address] POCT BASE EXCESS -3.0 mmol/L Low -2.0-3.0 [facility] Comment on above: Performed By: #### L [id number] ####[facility] (BEAKER)[address] [place] [address] POCT IONIZED CALCIUM 1.09 mmol/L Low 1.12-1.32 [facility] Comment on above: Performed By: #### L [id number] ####[facility] (BEAKER)[address] [place] [address] POCT PCO2 46.1 mmHg Normal 41.0-51.0 [facility] Comment on above: Performed By: #### L [id number] ####[facility] (BEAKER)[address] [place] [address] POCT PH 7.32 Normal 7.31-7.41 [facility] Comment on above: Performed By: #### L [id number] ####[facility] ([facility]AKER)[address] [place] [address] POCT PO2 400 mmHg High 80-105 [facility] Comment on above: Performed By: #### L [id number] ####[facility] (BEAKER)[address] [place] [address] POCT SO2 100 % High 95-98 [facility] Comment on above: Performed By: #### L [id number] ####[facility] (BEAKER)[address] [place] [address] Potassium [Moles/Vol] 4.5 mmol/L Normal 3.5-4.9 [facility] Comment on above: Performed By: #### L [id number] ####[facility] (BEAKER)[address] [place] [address] Sodium [Moles/Vol] 136 mmol/L Low 138.0-146.0 [facility] Comment on above: Performed By: #### L [id number] ####[facility] (BEAKER)[address] [place] [address] CO2 [Moles/Vol] 25.0 mmol/L Normal 21.0-29.0 [facility] Comment on above: Performed By: #### L [id number] ####[facility] (BEAKER)[address] [place] [address] Glucose [Mass/Vol] 193 mg/dL High 70-105 [facility] Comment on above: Performed By: #### L [id number] ####[facility] (BEAKER)[address] [place] [address] HCO3 (Bld) [Moles/Vol] 23.6 mmol/L Normal 23.0-28.0 [facility] Comment on above: Performed By: #### L [id number] ####[facility] (BEAKER)[address] [place] [address] Hematocrit (Bld) [Volume fraction] 26 % Low 38-51 [facility] Comment on above: Performed By: #### L [id number] ####[facility] (BEAKER)[address] [place] [address] Hemoglobin (Bld) [Mass/Vol] 8.8 g/dL Low 12.0-17.0 [facility] Comment on above: Performed By: #### L [id number] ####[facility] (BEAKER)[address] [place] [address] POCT BASE EXCESS -2.0 mmol/L Normal -2.0-3.0 [facility] Comment on above: Performed By: #### L [id number] ####[facility] (BEAKER)[address] [place] [address] POCT IONIZED CALCIUM 1.06 mmol/L Low 1.12-1.32 [facility] Comment on above: Performed By: #### L [id number] ####[facility] (BEAKER)[address] [place] [address] POCT PCO2 40.9 mmHg Low 41.0-51.0 [facility] Comment on above: Performed By: #### L [id number] ####[facility] (BEAKER)[address] [place] [address] POCT PH 7.37 Normal 7.31-7.41 [facility] Comment on above: Performed By: #### L [id number] ####[facility] (BEAKER)[address] [place] [address] POCT PO2 510 mmHg High 80-105 [facility] Comment on above: Performed By: #### L [id number] ####[facility] (BEAKER)[address] [place] [address] POCT SO2 100 % High 95-98 [facility] Comment on above: Performed By: #### L [id number] ####[facility] (BEAKER)[address] [place] [address] Potassium [Moles/Vol] 4.4 mmol/L Normal 3.5-4.9 [facility] Comment on above: Performed By: #### L [id number] ####[facility] (BEAKER)[address] [place] [address] Sodium [Moles/Vol] 135 mmol/L Low 138.0-146.0 [facility] Comment on above: Performed By: #### L [id number] ####[facility] (BEAKER)[address] [place] [address] CO2 [Moles/Vol] 24.0 mmol/L Normal 21.0-29.0 [facility] Comment on above: Performed By: #### L [id number] ####[facility] (BEAKER)[address] [place] [address] Glucose [Mass/Vol] 185 mg/dL High 70-105 [facility] Comment on above: Performed By: #### L [id number] ####[facility] (BEAKER)[address] [address] HCO3 (Bld) [Moles/Vol] 22.7 mmol/L Low 23.0-28.0 [facility] Comment on above: Performed By: #### L [id number] ####[facility] (BEAKER)[address] [address] Hematocrit (Bld) [Volume fraction] 26 % Low 38-51 [facility] Comment on above: Performed By: #### L [id number] ####[facility] (BEAKER)[address] [address] Hemoglobin (Bld) [Mass/Vol] 8.8 g/dL Low 12.0-17.0 [facility] Comment on above: Performed By: #### L [id number] ####[facility] (BEAKER)[address] [address] POCT BASE EXCESS -2.0 mmol/L Normal -2.0-3.0 [facility] Comment on above: Performed By: #### L [id number] ####[facility] (BEAKER)[address] [address] POCT IONIZED CALCIUM 1.10 mmol/L Low 1.12-1.32 [facility] Comment on above: Performed By: #### L [id number] ####[facility] ([facility]ER)[address] [address] POCT PCO2 37.2 mmHg Low 41.0-51.0 [facility] Comment on above: Performed By: #### L [id number] ####[facility] ([facility]ER)[address] [address] POCT PH 7.39 Normal 7.31-7.41 [facility] Comment on above: Performed By: #### L [id number] ####[facility] ([facility]AKER)[address] [address] POCT PO2 485 mmHg High 80-105 [facility] Comment on above: Performed By: #### L [id number] ####[facility] (BEAKER)[address] [place] [address] POCT SO2 100 % High 95-98 [facility] Comment on above: Performed By: #### L [id number] ####[facility] (BEAKER)[address] [place] [address] Potassium [Moles/Vol] 3.7 mmol/L Normal 3.5-4.9 [facility] Comment on above: Performed By: #### L [id number] ####[facility] (BEAKER)[address] [place] [address] Sodium [Moles/Vol] 136 mmol/L Low 138.0-146.0 [facility] Comment on above: Performed By: #### L [id number] ####[facility] (BEAKER)[address] [place] [address] CO2 [Moles/Vol] 23.0 mmol/L Normal 21.0-29.0 [facility] Comment on above: Performed By: #### L [id number] ####[facility] (BEAKER)[address] [place] [address] Glucose [Mass/Vol] 132 mg/dL High 70-105 [facility] Comment on above: Performed By: #### L [id number] ####[facility] (BEAKER)[address] [place] [address] HCO3 (Bld) [Moles/Vol] 21.5 mmol/L Low 23.0-28.0 [facility] Comment on above: Performed By: #### L [id number] ####[facility] (BEAKER)[address] [place] [address] Hematocrit (Bld) [Volume fraction] 29 % Low 38-51 [facility] Comment on above: Performed By: #### L [id number] ####[facility] (BEAKER)[address] [place] [address] Hemoglobin (Bld) [Mass/Vol] 9.9 g/dL Low 12.0-17.0 [facility] Comment on above: Performed By: #### L [id number] ####[facility] (BEAKER)[address] [place] [address] POCT BASE EXCESS -4.0 mmol/L Low -2.0-3.0 [facility] Comment on above: Performed By: #### L [id number] ####[facility] ([facility]AKER)[address] [place] [address] POCT IONIZED CALCIUM 1.27 mmol/L Normal 1.12-1.32 [facility] Comment on above: Performed By: #### L [id number] ####[facility] (BEAKER)[address] [place] [address] POCT PCO2 38.3 mmHg Low 41.0-51.0 [facility] Comment on above: Performed By: #### L [id number] ####[facility] (BEAKER)[address] [place] [address] POCT PH 7.36 Normal 7.31-7.41 [facility] Comment on above: Performed By: #### L [id number] ####[facility] ([facility]AKER)[address] [place] [address] POCT PO2 214 mmHg High 80-105 [facility] Comment on above: Performed By: #### L [id number] ####[facility] (BEAKER)[address] [place] [address] POCT SO2 100 % High 95-98 [facility] Comment on above: Performed By: #### L [id number] ####[facility] (BEAKER)[address] [place] [address] Potassium [Moles/Vol] 3.9 mmol/L Normal 3.5-4.9 [facility] Comment on above: Performed By: #### L [id number] ####[facility] (BEAKER)[address] [place] [address] Sodium [Moles/Vol] 137 mmol/L Low 138.0-146.0 [facility] Comment on above: Performed By: #### L [id number] ####[facility] (BEAKER)[address] [place] [address] POCT BASE EXCESS Normal [facility] Comment on above: Performed By: #### L [id number] ####[facility] [place] [address] POCT GLUCOSE Normal [facility] Comment on above: Performed By: #### L [id number] ####[facility] ([facility])[address] [place] [address] POCT HCO3 Normal [facility] Comment on above: Performed By: #### L [id number] ####[facility] ([facility])[address] [place] [address] POCT HEMATOCRIT Normal [facility] Comment on above: Performed By: #### L [id number] ####[facility] ([facility])[address] [place] [address] POCT HEMOGLOBIN Normal [facility] Comment on above: Performed By: #### L [id number] ####[facility] ([facility])[address] [place] [address] POCT IONIZED CALCIUM Normal [facility] Comment on above: Performed By: #### L [id number] ####[facility] [place] [address] POCT PCO2 Normal [facility] Comment on above: Performed By: #### L [id number] ####[facility] ([facility] [place] [address] POCT PH Normal [facility] Comment on above: Performed By: #### L [id number] ####[facility] (BEAKER)[address] [place] [address] POCT PO2 53 mmHg Low 80-105 [facility] Comment on above: Performed By: #### L [id number] ####[facility] (BEAKER)[address] [place] [address] POCT POTASSIUM Normal [facility] Comment on above: Performed By: #### L [id number] ####[facility] (BEAKER)[address] [place] [address] POCT SO2 85 % Low 95-98 [facility] Comment on above: Performed By: #### L [id number] ####[facility] (BEAKER)[address] [place] [address] POCT SODIUM Normal [facility] Comment on above: Performed By: #### L [id number] ####[facility] (BEAKER)[address] [place] [address] POCT TOTAL CO2 Normal [facility] Comment on above: Performed By: #### L [id number] ####[facility] (BEAKER)[address] [place] [address] CO2 [Moles/Vol] 25.0 mmol/L Normal 21.0-29.0 [facility] Comment on above: Performed By: #### L [id number] ####[facility] (BEAKER)[address] [place] [address] Glucose [Mass/Vol] 114 mg/dL High 70-105 [facility] Comment on above: Performed By: #### L [id number] ####[facility] (BEAKER)[address] [place] [address] HCO3 (Bld) [Moles/Vol] 23.4 mmol/L Normal 23.0-28.0 [facility] Comment on above: Performed By: #### L [id number] ####[facility] (BEAKER)[address] [place] [address] Hematocrit (Bld) [Volume fraction] 30 % Low 38-51 [facility] Comment on above: Performed By: #### L [id number] ####[facility] (BEAKER)[address] [place] [address] Hemoglobin (Bld) [Mass/Vol] 10.2 g/dL Low 12.0-17.0 [facility] Comment on above: Performed By: #### L [id number] ####[facility] (BEAKER)[address] [place] [address] POCT BASE EXCESS -2.0 mmol/L Normal -2.0-3.0 [facility] Comment on above: Performed By: #### L [id number] ####[facility] (BEAKER)[address] [place] [address] POCT IONIZED CALCIUM 1.19 mmol/L Normal 1.12-1.32 [facility] Comment on above: Performed By: #### L [id number] ####[facility] (BEAKER)[address] [place] [address] POCT PCO2 40.0 mmHg Low 41.0-51.0 [facility] Comment on above: Performed By: #### L [id number] ####[facility] (BEAKER)[address] [place] [address] POCT PH 7.38 Normal 7.31-7.41 [facility] Comment on above: Performed By: #### L [id number] ####[facility] (BEAKER)[address] [place] [address] POCT PO2 159 mmHg High 80-105 [facility] Comment on above: Performed By: #### L [id number] ####[facility] (BEAKER)[address] [place] [address] POCT SO2 99 % High 95-98 [facility] Comment on above: Performed By: #### L [id number] ####[facility] (BEAKER)[address] [place] [address] Potassium [Moles/Vol] 4.1 mmol/L Normal 3.5-4.9 [facility] Comment on above: Performed By: #### L [id number] ####[facility] (BEAKER)[address] [place] [address] Sodium [Moles/Vol] 137 mmol/L Low 138.0-146.0 [facility] Comment on above: Performed By: #### L [id number] ####[facility] (BEAKER)[address] [place] [address] PROTIME-INRon 06-26-2023 INR IN PPP BY COAGULATION ASSAY 1.29 High 0.90-1.10 [facility] Comment on above: Result [...] CHEST 1995;108:231S-246S. Performed By: #### L [id number] ####[facility] (BEAKER)[address] [place] [address] PROTHROMBIN TIME (PT) IN PPP BY COAGULATION ASSAY 16.1 Seconds High 12.3-14.8 [facility] Comment on above: Performed By: #### L [id number] ####[facility] (BEAKER)[address] [place] [address] INR IN PPP BY COAGULATION ASSAY 1.37 High 0.90-1.10 [facility] Comment on above: Order Comment: Pre-o p diagnosis:Aortic valve disorder [I35.9] Result Comment: [facility] P RECOMMENDED INR FOR WARFARIN THERAPY CONDITION INRPROPHYLAXIS OF VENOUS THROMBOSIS 2-3(HIGH-RISK SURGERY)TREATMENT OF VENOUS THROMBOSIS 2-3TREATMENT OF PULMONARY EMBOLISM 2-3PREVENTION OF SYSTEMIC EMBOLISM: 2-3 ACUTE MYOCARDIAL INFARCTION TISSUE HEART VALVES VALVULAR HEART DISEASE ATRIAL FIBRILLATION RECURRENT SYSTEMIC EMBOLISMMECHANICAL HEART VALVE 2.5-3.5 FROM: ORAL ANTICOAGULANTS. MECHANISM OF ACTION, CLINICAL EFFECTIVENESS, AND OPTIMAL THERAPEUTIC RANGE. CHEST 1995;108:231S-246S. Performed By: #### L [id number] ####[facility] (Minded)[address] [place] [address] PROTHROMBIN TIME (PT) IN PPP BY COAGULATION ASSAY 16.9 Seconds High 12.3-14.8 [facility] Comment on above: Order Comment: Pre-o p diagnosis:Aortic valve disorder [I35.9] Performed By: #### L [id number] ####[facility] ([facility])[address] [place] [address] INR IN PPP BY COAGULATION ASSAY 1.06 Normal 0.90-1.10 [facility] Comment on above: Result Comment: [facility] P RECOMMENDED INR FOR WARFARIN THERAPY CONDITION INRPROPHYLAXIS OF VENOUS THROMBOSIS 2-3(HIGH-RISK SURGERY)TREATMENT OF VENOUS THROMBOSIS 2-3TREATMENT OF PULMONARY EMBOLISM 2-3PREVENTION OF SYSTEMIC EMBOLISM: 2-3 ACUTE MYOCARDIAL INFARCTION TISSUE HEART VALVES VALVULAR HEART DISEASE ATRIAL FIBRILLATION RECURRENT SYSTEMIC EMBOLISMMECHANICAL HEART VALVE 2.5-3.5 FROM: ORAL ANTICOAGULANTS. MECHANISM OF ACTION, CLINICAL EFFECTIVENESS, AND OPTIMAL THERAPEUTIC RANGE. CHEST 1995;108:231S-246S. Performed By: #### L [id number] ####[facility] ([facility])[address] [place] [address] PROTHROMBIN TIME (PT) IN PPP BY COAGULATION ASSAY 13.8 Seconds Normal 12.3-14.8 [facility] Comment on above: Performed By: #### L [id number] ####[facility] ([facility])[address] [place] [address] TISSUE CULTUREon 06-26-2023 Bacteria identified Cx Nom (Unsp spec) No growth at [address] [facility] Comment on above: Order Comment: Pre-o p diagnosis:Aortic valve disorder [I35.9] Performed By: #### L [id number] ####[facility] ([facility])[address] [place] [address] GRAM STAIN RESULT Normal [facility] Comment on above: Order Comment: Pre-o p diagnosis:Aortic valve disorder [I35.9] Result Comment: No p olymorphonuclear leukocytes seenNo organisms seen Performed By: #### L [id number] ####[facility] ([facility])[address] [place] [address] 30on 06-25-2023 30 Normal [facility] ANESon 06-25-2023 ANES Normal [facility] APTTon 06-25-2023 ACTIVATED PARTIAL THROMBOPLASTIN TIME IN PPP BY COAGULATION ASSAY 31.3 Seconds Normal 25.0-35.0 [facility] Comment on above: Result Comment: Clin ical significance of the APTT is questionable in the presence of heparin. Performed By: #### L [id number] ####[facility] ([facility] [place] [address] CBC WITH AUTO DIFFERENTIALon 06-25-2023 Basophils (Bld) [#/Vol] 0.04 10*3/uL Normal 0.00-0.20 [facility] Comment on above: Performed By: #### L [id number] ####[facility] ([facility])[address] [place] [address] Basophils/100 WBC (Bld) 0.8 % Normal 0.0-1.0 [facility] Comment on above: Performed By: #### L [id number] ####[facility] ([facility])[address] [place] [address] Eosinophils (Bld) [#/Vol] 0.38 10*3/uL Normal 0.00-0.50 [facility] Center Comment on above: Performed By: #### L [id number] ####[facility] ([facility])[address] [place] [address] Eosinophils/100 WBC (Bld) 7.7 % High 0.0-6.0 [facility] Comment on above: Performed By: #### L [id number] ####[facility] ([facility])[address] [place] [address] Erythrocyte distribution width (RBC) [Ratio] 16.0 % High 11.5-15.0 [facility] Comment on above: Performed By: #### L [id number] ####[facility] ([facility])[address] [place] [address] ERYTHROCYTE MEAN CORPUSCULAR HEMOGLOBIN CONCENTRATION (G/DL) BY AUTOMATED 34.0 g/dL Normal 32.0-35.0 [facility] Comment on above: Performed By: #### L [id number] ####[facility] ([facility] [place] [address] Hematocrit (Bld) [Volume fraction] 32.6 % Low 39.0-55.0 [facility] Comment on above: Performed By: #### L [id number] ####[facility] ([facility])[address] [place] [address] Hemoglobin (Bld) [Mass/Vol] 11.1 g/dL Low 13.0-17.0 [facility] Comment on above: Performed By: #### L [id number] ####[facility] ([facility])[address] [place] [address] Immature granulocytes (Bld) [#/Vol] 0.02 10*3/uL Normal 0.00-0.20 [facility] Comment on above: Performed By: #### L [id number] ####[facility] ([facility] [place] [address] Immature granulocytes/100 WBC (Bld) 0.4 % Normal 0.0-1.0 [facility] Comment on above: Performed By: #### L [id number] ####[facility] ([facility])[address] [place] [address] Lymphocytes (Bld) [#/Vol] 0.80 10*3/uL Low 1.20-4.00 [facility] Comment on above: Performed By: #### L [id number] ####[facility] ([facility] [place] [address] Lymphocytes/100 WBC (Bld) 16.2 % Low 20.0-45.0 [facility] Comment on above: Performed By: #### L [id number] ####[facility] ([facility] [place] [address] MCH (RBC) [Entitic mass] 29.8 pg Normal 27.0-33.0 [facility] Comment on above: Performed By: #### L [id number] ####[facility] ([facility])[address] [place] [address] MCV (RBC) [Entitic vol] 87.4 fL Normal 82.0-98.0 [facility] Comment on above: Performed By: #### L [id number] ####[facility] ([facility])[address] [place] [address] Monocytes (Bld) [#/Vol] 0.42 10*3/uL Normal 0.10-1.00 [facility] Comment on above: Performed By: #### L [id number] ####[facility] ([facility])[address] [place] [address] Monocytes/100 WBC (Bld) 8.5 % Normal 5.0-12.0 [facility] Comment on above: Performed By: #### L [id number] ####[facility] ([facility])[address] [place] [address] Neutrophils (Bld) [#/Vol] 3.29 10*3/uL Normal 1.60-7.60 [facility] Comment on above: Performed By: #### L [id number] ####[facility] ([facility])[address] [place] [address] Neutrophils/100 WBC (Bld) 66.4 % Normal 40.0-72.0 [facility] Comment on above: Performed By: #### L [id number] ####[facility] ([facility])[address] [place] [address] NRBC (PER 100 WBCS) BY AUTOMATED COUNT 0.0 % Normal 0 [facility] Comment on above: Performed By: #### L [id number] ####[facility] ([facility])[address] [place] [address] PLATELETS (10*3/UL) IN BLOOD AUTOMATED COUNT 142 10*3/uL Low 150-400 [facility] Comment on above: Performed By: #### L [id number] ####[facility] ([facility])[address] [place] [address] RBC (Bld) [#/Vol] 3.73 10*6/uL Low 4.20-5.70 [facility] Comment on above: Performed By: #### L [id number] ####[facility] ([facility])[address] [place] [address] WBC (Bld) [#/Vol] 4.95 10*3/uL Normal 4.00-10.60 [facility] Comment on above: Performed By: #### L [id number] ####[facility] ([facility])[address] [place] [address] COMPREHENSIVE METABOLIC PANE Braulio 06-25-2023 Albumin [Mass/Vol] 3.9 g/dL Normal 3.5-5.7 [facility] Comment on above: Performed By: #### L [id number] ####[facility] ([facility])[address] [place] [address] ALP [Catalytic activity/Vol] 49 U/L Normal 34-104 [facility] Comment on above: Performed By: #### L [id number] ####[facility] ([facility] [place] [address] ALT [Catalytic activity/Vol] 13 U/L Normal 7-52 [facility] Comment on above: Performed By: #### L [id number] ####[facility] ([facility])[address] [place] [address] Anion gap [Moles/Vol] 11 mmol/L Normal 7-20 [facility] Comment on above: Performed By: #### L [id number] ####[facility] ([facility])[address] [place] [address] AST [Catalytic activity/Vol] 12 U/L Low 13-39 [facility] Comment on above: Performed By: #### L [id number] ####[facility] ([facility])[address] [place] [address] Bilirubin [Mass/Vol] 0.8 mg/dL Normal 0.3-1.0 [facility] Comment on above: Performed By: #### L [id number] ####[facility] ([facility] [place] [address] Calcium [Mass/Vol] 8.8 mg/dL Normal 8.6-10.3 [facility] Comment on above: Performed By: #### L [id number] ####[facility] ([facility] [place] [address] Chloride [Moles/Vol] 102 mmol/L Normal 98-107 [facility] Comment on above: Performed By: #### L [id number] ####[facility] ([facility] [place] [address] CO2 [Moles/Vol] 26 mmol/L Normal 21-[address] [facility] Comment on above: Performed By: #### L [id number] ####[facility] ([facility])[address] [place] [address] Creatinine [Mass/Vol] 0.84 mg/dL Normal 0.70-1.30 [facility] Comment on above: Performed By: #### L [id number] ####[facility] ([facility])[address] [place] [address] GLOMERULAR FILTRATION RATE ML/MIN/1.73 SQ M.PREDICTED 106.2 mL/min/1.73m*2 Normal >60.0 [facility] Comment on above: Result Comment: The [facility]???s estimated glomerular filtration rate (eGFR) [...] of individuals. Performed By: #### L [id number] ####[facility] ([facility] [place] [address] Glucose [Mass/Vol] 93 mg/dL Normal 70-100 [facility] Comment on above: Performed By: #### L [id number] ####[facility] ([facility] [place] [address] Potassium [Moles/Vol] 4.3 mmol/L Normal 3.5-5.1 [facility] Comment on above: Performed By: #### L [id number] ####[facility] ([facility] [place] [address] Protein [Mass/Vol] 6.2 g/dL Normal 6.0-8.3 [facility] Comment on above: Performed By: #### L [id number] ####[facility] ([facility])[address] [place] [address] Sodium [Moles/Vol] 135 mmol/L Low 136-145 [facility] Comment on above: Performed By: #### L [id number] ####[facility] ([facility])[address] [place] [address] Urea nitrogen [Mass/Vol] 15 mg/dL Normal 7-25 [facility] Comment on above: Performed By: #### L [id number] ####[facility] ([facility])[address] [place] [address] UREA NITROGEN/CREATININE (MASS RATIO) IN SER/PLAS 17.9 Normal [facility] Comment on above: Performed By: #### L [id number] ####[facility] ([facility])[address] [place] [address] MAGNESIUMon 06-25-2023 Magnesium [Mass/Vol] 1.9 mg/dL Normal 1.9-2.7 [facility] Comment on above: Performed By: #### L [id number] ####[facility] ([facility])[address] [place] [address] MRSA/MSSA DNA NASALon 2023 MRSA DNA Negative Normal Negative [facility] Comment on above: [...] preclude nasal colonization. Performed By: #### L [id number] ####[facility] ([facility])[address] [place] [address] MSSA DNA Negative Normal Negative [facility] Comment on above: Order Comment: Clark ng methodology is an automated qualitative in [...] preclude nasal colonization. Performed By: #### L [id number] ####[facility] ([facility])[address] [place] [address] PROTIME-INRon 06-25-2023 INR IN PPP BY COAGULATION ASSAY 1.02 Normal 0.90-1.10 [facility] Comment on above: Result [...] CHEST 1995;[id number]. Performed By: #### L [id number] ####[facility] ([facility])[address] [place] [address] PROTHROMBIN TIME (PT) IN PPP BY COAGULATION ASSAY 13.4 Seconds Normal 12.3-14.8 [facility] Comment on above: Performed By: #### L [id number] ####[facility] ([facility])[address] [place] [address] TYPE AND SCREENon 06-25-2023 AB SCREEN Negative Normal [facility] Comment on above: Performed By: #### L [id number] ####[facility], ABO group Nom (Bld) [facility] Comment on above: Performed By: #### L [id number] ####[facility], RH TYPE IN BLOOD Negative Normal [facility] Comment on above: Performed By: #### L [id number] ####[facility], URINALYSISon 06-25-2023 BILIRUBIN, TOTAL PRESENCE IN URINE Negative Normal Negative [facility] Comment on above: Performed By: #### L [id number] ####[facility] ([facility])[address] [place] [address] Clarity (U) Clear Normal Clear [facility] Comment on above: Performed By: #### L [id number] ####[facility] ([facility])[address] [place] [address] Color (U) Kylie Abnormal Yellow [facility] Comment on above: Performed By: #### L [id number] ####[facility] ([facility])[address] [place] [address] Glucose (U) [Mass/Vol] Negative Normal Negative [facility] Comment on above: Performed By: #### L [id number] ####[facility] ([facility])[address] [place] [address] HEMOGLOBIN PRESENCE IN URINE Negative Normal Negative [facility] Comment on above: Performed By: #### L [id number] ####[facility] ([facility])[address] [place] [address] Ketones Ql (U) Negative Normal Negative [facility] Comment on above: Performed By: #### L [id number] ####[facility] ([facility])[address] [place] [address] LEUKOCYTE ESTERASE PRESENCE IN URINE BY TEST STRIP Negative Normal Negative [facility] Comment on above: Performed By: #### L [id number] ####[facility] ([facility])[address] [place] [address] NITRITE PRESENCE IN URINE Negative Normal Negative [facility] Comment on above: Performed By: #### L [id number] ####[facility] ([facility])[address] [place] [address] pH (U) 5.0 [pH] Normal 5.0-8.0 [facility] Comment on above: Performed By: #### L [id number] ####[facility] ([facility])[address] [place] [address] Protein (U) [Mass/Vol] 100 mg/dL Abnormal Negative [facility] Comment on above: Performed By: #### L [id number] ####[facility] ([facility])[address] [place] [address] Specific gravity (U) [Rel density] 1.033 High 1.015-1.020 [facility] Comment on above: Performed By: #### L [id number] ####[facility] ([facility])[address] [place] [address] UROBILINOGEN (EU/DL) IN URINE 2.0 EU/dL Abnormal Negative [facility] Comment on above: Performed By: #### L [id number] ####[facility] ([facility])[address] [place] [address] URINALYSIS MICROSCOPICon CALCIUM OXALATE CRYSTALS (#/HPF) IN URINE Occasional Abnormal None Seen [facility] Comment on above: Performed By: #### L [id number] ####[facility] ([facility])[address] [place] [address] CASTS IN URINE Normal [facility] Comment on above: Performed By: #### L [id number] ####[facility] ([facility])[address] [place] [address] CRYSTALS IN URINE Present Abnormal None Seen [facility] Comment on above: Performed By: #### L [id number] ####[facility] ([facility] [place] [address] MUCUS (#/HPF) IN URINE SEDIMENT Moderate Abnormal None Seen, Occasional, Few [facility] Comment on above: Performed By: #### L [id number] ####[facility] ([facility] [place] [address] RBC (#/HPF) IN URINE SEDIMENT 3-5 Abnormal None Seen [facility] Comment on above: Performed By: #### L [id number] ####[facility] ([facility] [place] [address] SQUAMOUS EPITHELIAL CELLS (#/HPF) IN URINE SEDIMENT Few Abnormal None Seen, Occasional [facility] Comment on above: Performed By: #### L [id number] ####[facility] ([facility])[address] [place] [address] WBC (LEUKOCYTE) (#/HPF) IN URINE SEDIMENT 0-2 Abnormal None Seen [facility] Comment on above: Performed By: #### L [id number] ####[facility] ([facility] [place] [address] 30on 06-24-2023 30 Normal [facility] 30 Normal [facility] 30 Normal [facility] ANESon 06-24-2023 ANES Normal [facility] CBC WITH AUTO DIFFERENTIALon 06-24-2023 Basophils (Bld) [#/Vol] 0.03 10*3/uL Normal 0.00-0.20 [facility] Comment on above: Performed By: #### L [id number] ####[facility] ([facility] [place] [address] Basophils/100 WBC (Bld) 0.4 % Normal 0.0-1.0 [facility] Comment on above: Performed By: #### L [id number] ####[facility] ([facility])[address] [place] [address] Eosinophils (Bld) [#/Vol] 0.57 10*3/uL High 0.00-0.50 [facility] Comment on above: Performed By: #### L [id number] ####[facility] ([facility])[address] [place] [address] Eosinophils/100 WBC (Bld) 7.7 % High 0.0-6.0 [facility] Comment on above: Performed By: #### L [id number] ####[facility] ([facility])[address] [place] [address] Erythrocyte distribution width (RBC) [Ratio] 16.3 % High 11.5-15.0 [facility] Comment on above: Performed By: #### L [id number] ####[facility] ([facility])[address] [place] [address] ERYTHROCYTE MEAN CORPUSCULAR HEMOGLOBIN CONCENTRATION (G/DL) BY AUTOMATED 33.1 g/dL Normal 32.0-35.0 [facility] Comment on above: Performed By: #### L [id number] ####[facility] ([facility])[address] [place] [address] Hematocrit (Bld) [Volume fraction] 35.3 % Low 39.0-55.0 [facility] Comment on above: Performed By: #### L [id number] ####[facility] ([facility])[address] [place] [address] Hemoglobin (Bld) [Mass/Vol] 11.7 g/dL Low 13.0-17.0 [facility] Comment on above: Performed By: #### L [id number] ####[facility] ([facility])[address] [place] [address] Immature granulocytes (Bld) [#/Vol] 0.03 10*3/uL Normal 0.00-0.20 [facility] Comment on above: Performed By: #### L [id number] ####[facility] ([facility])[address] [place] [address] Immature granulocytes/100 WBC (Bld) 0.4 % Normal 0.0-1.0 [facility] Comment on above: Performed By: #### L [id number] ####[facility] ([facility] [place] [address] Lymphocytes (Bld) [#/Vol] 1.05 10*3/uL Low 1.20-4.00 [facility] Comment on above: Performed By: #### L [id number] ####[facility] ([facility] [place] [address] Lymphocytes/100 WBC (Bld) 14.2 % Low 20.0-45.0 [facility] Comment on above: Performed By: #### L [id number] ####[facility] ([facility] [place] [address] MCH (RBC) [Entitic mass] 29.3 pg Normal 27.0-33.0 [facility] Comment on above: Performed By: #### L [id number] ####[facility] ([facility] [place] [address] MCV (RBC) [Entitic vol] 88.5 fL Normal 82.0-98.0 [facility] Comment on above: Performed By: #### L [id number] ####[facility] ([facility])[address] [place] [address] Monocytes (Bld) [#/Vol] 0.50 10*3/uL Normal 0.10-1.00 [facility] Comment on above: Performed By: #### L [id number] ####[facility] ([facility])[address] [place] [address] Monocytes/100 WBC (Bld) 6.8 % Normal 5.0-12.0 [facility] Comment on above: Performed By: #### L [id number] ####[facility] ([facility])[address] [place] [address] Neutrophils (Bld) [#/Vol] 5.20 10*3/uL Normal 1.60-7.60 [facility] Comment on above: Performed By: #### L [id number] ####[facility] ([facility])[address] [place] [address] Neutrophils/100 WBC (Bld) 70.5 % Normal 40.0-72.0 [facility] Comment on above: Performed By: #### L [id number] ####[facility] ([facility])[address] [address] NRBC (PER 100 WBCS) BY AUTOMATED COUNT 0.0 % Normal 0 [facility] Comment on above: Performed By: #### L [id number] ####[facility] ([facility])[address] [place], [place] [address] PLATELETS (10*3/UL) IN BLOOD AUTOMATED COUNT 141 10*3/uL Low 150-400 [facility] Comment on above: Performed By: #### L [id number] ####[facility] ([facility])[address] [place], [place] [address] RBC (Bld) [#/Vol] 3.99 10*6/uL Low 4.20-5.70 [facility] Comment on above: Performed By: #### L [id number] ####[facility] ([facility])[address] [place], [place] [address] WBC (Bld) [#/Vol] 7.38 10*3/uL Normal 4.00-10.60 [facility] Comment on above: Performed By: #### L [id number] ####[facility] ([facility] [place] [address] COMPREHENSIVE METABOLIC PANE Braulio 06-24-2023 Albumin [Mass/Vol] 4.1 g/dL Normal 3.5-5.7 [facility] Comment on above: Performed By: #### L [id number] ####[facility] ([facility])[address] [place] [address] ALP [Catalytic activity/Vol] 53 U/L Normal 34-104 [facility] Comment on above: Performed By: #### L [id number] ####[facility] ([facility])[address] [place] [address] ALT [Catalytic activity/Vol] 12 U/L Normal 7-52 [facility] Comment on above: Performed By: #### L [id number] ####[facility] ([facility])[address] [place] [address] Anion gap [Moles/Vol] 12 mmol/L Normal 7-20 [facility] Comment on above: Performed By: #### L [id number] ####[facility] ([facility])[address] [place] [address] AST [Catalytic activity/Vol] 11 U/L Low 13-39 [facility] Comment on above: Performed By: #### L [id number] ####[facility] ([facility])[address] [place] [address] Bilirubin [Mass/Vol] 0.9 mg/dL Normal 0.3-1.0 [facility] Comment on above: Performed By: #### L [id number] ####[facility] ([facility])[address] [place] [address] Calcium [Mass/Vol] 9.0 mg/dL Normal 8.6-10.3 [facility] Comment on above: Performed By: #### L [id number] ####[facility] ([facility])[address] [place] [address] Chloride [Moles/Vol] 100 mmol/L Normal 98-107 [facility] Comment on above: Performed By: #### L [id number] ####[facility] ([facility])[address] [place] [address] CO2 [Moles/Vol] 26 mmol/L Normal 21-[address] [facility] Comment on above: Performed By: #### L [id number] ####[facility] ([facility])[address] [place] [address] Creatinine [Mass/Vol] 0.84 mg/dL Normal 0.70-1.30 [facility] Comment on above: Performed By: #### L [id number] ####[facility] ([facility])[address] [place] [address] GLOMERULAR FILTRATION RATE ML/MIN/1.73 SQ M.PREDICTED 106.2 mL/min/1.73m*2 Normal >60.0 [facility] Comment on above: Result Comment: [facility]???s estimated glomerular filtration rate (eGFR) [...] of individuals. Performed By: #### L [id number] ####[facility] ([facility])[address] [place] [address] Glucose [Mass/Vol] 95 mg/dL Normal 70-100 [facility] Comment on above: Performed By: #### L [id number] ####[facility] ([facility])[address] [place] [address] Potassium [Moles/Vol] 3.9 mmol/L Normal 3.5-5.1 [facility] Comment on above: Performed By: #### L [id number] ####[facility] ([facility])[address] [place] [address] Protein [Mass/Vol] 6.5 g/dL Normal 6.0-8.3 [facility] Comment on above: Performed By: #### L [id number] ####[facility] ([facility])[address] [place] [address] Sodium [Moles/Vol] 134 mmol/L Low 136-145 [facility] Comment on above: Performed By: #### L [id number] ####[facility] ([facility])[address] [place] [address] Urea nitrogen [Mass/Vol] 12 mg/dL Normal 7-25 [facility] Comment on above: Performed By: #### L [id number] ####[facility] ([facility] [place] [address] UREA NITROGEN/CREATININE (MASS RATIO) IN SER/PLAS 14.3 Normal [facility] Comment on above: Performed By: #### L [id number] ####[facility] ([facility] [place] [address] Documentationon 06-24-2023 Documentation Normal [facility] HPon 06-24-2023 HP Normal [facility] MAGNESIUMon 06-24-2023 Magnesium [Mass/Vol] 1.9 mg/dL Normal 1.9-2.7 [facility] Comment on above: Performed By: #### L [id number] ####[facility] ([facility])[address] [place] [id number] 30on 06-23-2023 30 Normal [facility] 30 Normal [facility] CBC WITH AUTO DIFFERENTIALon 06-23-2023 Basophils (Bld) [#/Vol] 0.04 10*3/uL Normal 0.00-0.20 [facility] Comment on above: Performed By: #### L [id number] ####[facility] (BEAKER)[address] [place] [address] Basophils/100 WBC (Bld) 0.5 % Normal 0.0-1.0 [facility] Comment on above: Performed By: #### L [id number] ####[facility] (BEAKER)[address] [place] [address] Eosinophils (Bld) [#/Vol] 0.56 10*3/uL High 0.00-0.50 [facility] Comment on above: Performed By: #### L [id number] ####[facility] (BEAKER)[address] [place] [address] Eosinophils/100 WBC (Bld) 7.5 % High 0.0-6.0 [facility] Comment on above: Performed By: #### L [id number] ####[facility] [place] [address] Erythrocyte distribution width (RBC) [Ratio] 16.7 % High 11.5-15.0 [facility] Comment on above: Performed By: #### L [id number] ####[facility] ([facility])[address] [place] [address] ERYTHROCYTE MEAN CORPUSCULAR HEMOGLOBIN CONCENTRATION (G/DL) BY AUTOMATED 33.2 g/dL Normal 32.0-35.0 [facility] Comment on above: Performed By: #### L [id number] ####[facility] ([facility])[address] [place] [address] Hematocrit (Bld) [Volume fraction] 34.9 % Low 39.0-55.0 [facility] Comment on above: Performed By: #### L [id number] ####[facility] ([facility])[address] [place] [address] Hemoglobin (Bld) [Mass/Vol] 11.6 g/dL Low 13.0-17.0 [facility] Comment on above: Performed By: #### L [id number] ####[facility] ([facility])[address] [place] [address] Immature granulocytes (Bld) [#/Vol] 0.03 10*3/uL Normal 0.00-0.20 [facility] Comment on above: Performed By: #### L [id number] ####[facility] ([facility] [place] [address] Immature granulocytes/100 WBC (Bld) 0.4 % Normal 0.0-1.0 [facility] Comment on above: Performed By: #### L [id number] ####[facility] (BEAKER)[address] [place] [address] Lymphocytes (Bld) [#/Vol] 1.08 10*3/uL Low 1.20-4.00 [facility] Comment on above: Performed By: #### L [id number] ####[facility] (BEAKER)[address] [place] [address] Lymphocytes/100 WBC (Bld) 14.5 % Low 20.0-45.0 [facility] Comment on above: Performed By: #### L [id number] ####[facility] (BEAKER)[address] [place] [address] MCH (RBC) [Entitic mass] 29.6 pg Normal 27.0-33.0 [facility] Comment on above: Performed By: #### L [id number] ####[facility] (BEAKER)[address] [place] [address] MCV (RBC) [Entitic vol] 89.0 fL Normal 82.0-98.0 [facility] Comment on above: Performed By: #### L [id number] ####[facility] (BEAKER)[address] [place] [address] Monocytes (Bld) [#/Vol] 0.50 10*3/uL Normal 0.10-1.00 [facility] Comment on above: Performed By: #### L [id number] ####[facility] (BEAKER)[address], [place] [address] Monocytes/100 WBC (Bld) 6.7 % Normal 5.0-12.0 [facility] Comment on above: Performed By: #### L [id number] ####[facility] (BEAKER)[address] [place] [address] Neutrophils (Bld) [#/Vol] 5.24 10*3/uL Normal 1.60-7.60 [facility] Comment on above: Performed By: #### L [id number] ####[facility] (BEAKER)[address] [place] [address] Neutrophils/100 WBC (Bld) 70.4 % Normal 40.0-72.0 [facility] Comment on above: Performed By: #### L [id number] ####[facility] (BEAKER)[address] [place] [address] NRBC (PER 100 WBCS) BY AUTOMATED COUNT 0.0 % Normal 0 [facility] Comment on above: Performed By: #### L [id number] ####[facility] ([facility])[address] [place] [address] PLATELETS (10*3/UL) IN BLOOD AUTOMATED COUNT 120 10*3/uL Low 150-400 [facility] Comment on above: Performed By: #### L [id number] ####[facility] ([facility])[address] [place] [address] RBC (Bld) [#/Vol] 3.92 10*6/uL Low 4.20-5.70 [facility] Comment on above: Performed By: #### L [id number] ####[facility] ([facility])[address], [place] [address] WBC (Bld) [#/Vol] 7.45 10*3/uL Normal 4.00-10.60 [facility] Comment on above: Performed By: #### L [id number] ####[facility] ([facility])[address] [place] [address] COMPREHENSIVE METABOLIC PANE Braulio 06-23-2023 Albumin [Mass/Vol] 4.1 g/dL Normal 3.5-5.7 [facility] Comment on above: Performed By: #### L [id number] ####[facility] ([facility])[address] [place] [address] ALP [Catalytic activity/Vol] 52 U/L Normal 34-104 [facility] Comment on above: Performed By: #### L [id number] ####[facility] ([facility])[address] [place] [address] ALT [Catalytic activity/Vol] 12 U/L Normal 7-52 [facility] Comment on above: Performed By: #### L [id number] ####[facility] ([facility])[address] [place] [address] Anion gap [Moles/Vol] 9 mmol/L Normal 7-20 [facility] Comment on above: Performed By: #### L [id number] ####[facility] ([facility] [place] [address] AST [Catalytic activity/Vol] 9 U/L Low 13-39 [facility] Comment on above: Performed By: #### L [id number] ####[facility] ([facility] [place] [address] Bilirubin [Mass/Vol] 1.0 mg/dL Normal 0.3-1.0 [facility] Comment on above: Performed By: #### L [id number] ####[facility] ([facility])[address] [place] [address] Calcium [Mass/Vol] 8.7 mg/dL Normal 8.6-10.3 [facility] Comment on above: Performed By: #### L [id number] ####[facility] ([facility] [place] [address] Chloride [Moles/Vol] 101 mmol/L Normal 98-107 [facility] Comment on above: Performed By: #### L [id number] ####[facility] ([facility] [place] [address] CO2 [Moles/Vol] 27 mmol/L Normal 21-[address] [facility] Comment on above: Performed By: #### L [id number] ####[facility] ([facility] [place] [address] Creatinine [Mass/Vol] 0.77 mg/dL Normal 0.70-1.30 [facility] Comment on above: Performed By: #### L [id number] ####[facility] ([facility] [place] [address] GLOMERULAR FILTRATION RATE ML/MIN/1.73 SQ M.PREDICTED 109.1 mL/min/1.73m*2 Normal >60.0 [facility] Comment on above: Result Comment: The [facility]???s estimated glomerular filtration rate (eGFR) [...] of individuals. Performed By: #### L [id number] ####[facility] ([facility])[address] [place] [address] Glucose [Mass/Vol] 106 mg/dL High 70-100 [facility] Comment on above: Performed By: #### L [id number] ####[facility] ([facility])[address] [place] [address] Potassium [Moles/Vol] 4.1 mmol/L Normal 3.5-5.1 [facility] Comment on above: Performed By: #### L [id number] ####[facility] ([facility])[address] [place] [address] Protein [Mass/Vol] 6.2 g/dL Normal 6.0-8.3 [facility] Comment on above: Performed By: #### L [id number] ####[facility] ([facility])[address] [place] [address] Sodium [Moles/Vol] 133 mmol/L Low 136-145 [facility] Comment on above: Performed By: #### L [id number] ####[facility] ([facility])[address] [place] [address] Urea nitrogen [Mass/Vol] 13 mg/dL Normal 7-25 [facility] Comment on above: Performed By: #### L [id number] ####[facility] ([facility])[address] [place] [address] UREA NITROGEN/CREATININE (MASS RATIO) IN SER/PLAS 16.9 Normal [facility] Comment on above: Performed By: #### L [id number] ####[facility] ([facility])[address] [place] [address] CONSULTon 06-23-2023 CONSULT Normal [facility] 30on 06-22-2023 30 Normal [facility] 30 Normal [facility] APTTon 06-22-2023 ACTIVATED PARTIAL THROMBOPLASTIN TIME IN PPP BY COAGULATION ASSAY 31.2 Seconds Normal 25.0-35.0 [facility] Comment on above: Result Comment: Clin ical significance of the APTT is questionable in the presence of heparin. Performed By: #### L [id number] ####[facility] ([facility])[address] [place] [address] CBC WITH AUTO DIFFERENTIALon 06-22-2023 Basophils (Bld) [#/Vol] 0.03 10*3/uL Normal 0.00-0.20 [facility] Comment on above: Performed By: #### L [id number] ####[facility] ([facility])[address] [place] [address] Basophils/100 WBC (Bld) 0.4 % Normal 0.0-1.0 [facility] Comment on above: Performed By: #### L [id number] ####[facility] ([facility])[address] [place] [address] Eosinophils (Bld) [#/Vol] 0.39 10*3/uL Normal 0.00-0.50 [facility] Comment on above: Performed By: #### L [id number] ####[facility] ([facility])[address] [place] [address] Eosinophils/100 WBC (Bld) 5.0 % Normal 0.0-6.0 [facility] Comment on above: Performed By: #### L [id number] ####[facility] ([facility])[address] [place] [address] Erythrocyte distribution width (RBC) [Ratio] 16.3 % High 11.5-15.0 [facility] Comment on above: Performed By: #### L [id number] ####[facility] ([facility])[address] [place] [address] ERYTHROCYTE MEAN CORPUSCULAR HEMOGLOBIN CONCENTRATION (G/DL) BY AUTOMATED 33.1 g/dL Normal 32.0-35.0 [facility] Comment on above: Performed By: #### L [id number] ####[facility] (BEAKER)[address] [place] [address] Hematocrit (Bld) [Volume fraction] 35.6 % Low 39.0-55.0 [facility] Comment on above: Performed By: #### L [id number] ####[facility] (BEAKER)[address] [place] [address] Hemoglobin (Bld) [Mass/Vol] 11.8 g/dL Low 13.0-17.0 [facility] Comment on above: Performed By: #### L [id number] ####[facility] (BEAKER)[address] [place] [address] Immature granulocytes (Bld) [#/Vol] 0.02 10*3/uL Normal 0.00-0.20 [facility] Comment on above: Performed By: #### L [id number] ####[facility] (BEAKER)[address] [place] [address] Immature granulocytes/100 WBC (Bld) 0.3 % Normal 0.0-1.0 [facility] Comment on above: Performed By: #### L [id number] ####[facility] (BEAKER)[address] [place] [address] Lymphocytes (Bld) [#/Vol] 0.72 10*3/uL Low 1.20-4.00 [facility] Comment on above: Performed By: #### L [id number] ####[facility] (BEAKER)[address] [place] [address] Lymphocytes/100 WBC (Bld) 9.2 % Low 20.0-45.0 [facility] Comment on above: Performed By: #### L [id number] ####[facility] (BEAKER)[address] [place] [address] MCH (RBC) [Entitic mass] 29.0 pg Normal 27.0-33.0 [facility] Comment on above: Performed By: #### L [id number] ####[facility] ([facility] [place] [address] MCV (RBC) [Entitic vol] 87.5 fL Normal 82.0-98.0 [facility] Comment on above: Performed By: #### L [id number] ####[facility] ([facility])[address], [place] [address] Monocytes (Bld) [#/Vol] 0.41 10*3/uL Normal 0.10-1.00 [facility] Comment on above: Performed By: #### L [id number] ####[facility] ([facility])[address] [place] [address] Monocytes/100 WBC (Bld) 5.2 % Normal 5.0-12.0 [facility] Comment on above: Performed By: #### L [id number] ####[facility] ([facility])[address] [place] [address] Neutrophils (Bld) [#/Vol] 6.24 10*3/uL Normal 1.60-7.60 [facility] Comment on above: Performed By: #### L [id number] ####[facility] (BEAKER)[address] [place] [address] Neutrophils/100 WBC (Bld) 79.9 % High 40.0-72.0 [facility] Comment on above: Performed By: #### L [id number] ####[facility] ([facility] [place] [address] NRBC (PER 100 WBCS) BY AUTOMATED COUNT 0.0 % Normal 0 [facility] Comment on above: Performed By: #### L [id number] ####[facility] (BEAKER)[address] [place] [address] PLATELETS (10*3/UL) IN BLOOD AUTOMATED COUNT 110 10*3/uL Low 150-400 [facility] Comment on above: Performed By: #### L [id number] ####[facility] ([facility] [place] [address] RBC (Bld) [#/Vol] 4.07 10*6/uL Low 4.20-5.70 [facility] Comment on above: Performed By: #### L [id number] ####[facility] ([facility])[address] [place] [address] WBC (Bld) [#/Vol] 7.81 10*3/uL Normal 4.00-10.60 [facility] Comment on above: Performed By: #### L [id number] ####[facility] ([facility])[address] [place] [address] [facility] CREATINE KINASE (U/L) IN SER/PLAS 22.0 U/L Low 30.0-223.0 [facility] Comment on above: Performed By: #### L [id number] ####[facility] ([facility] [place] [address] COMPREHENSIVE METABOLIC PANE Braulio 06-22-2023 Albumin [Mass/Vol] 4.0 g/dL Normal 3.5-5.7 [facility] Comment on above: Performed By: #### L [id number] ####[facility] ([facility] [place] [address] ALP [Catalytic activity/Vol] 52 U/L Normal 34-104 [facility] Comment on above: Performed By: #### L [id number] ####[facility] (BEAKER)[address] [place] [address] ALT [Catalytic activity/Vol] 13 U/L Normal 7-52 [facility] Comment on above: Performed By: #### L [id number] ####[facility] (BEAKER)[address] [place] [address] Anion gap [Moles/Vol] 12 mmol/L Normal 7-20 [facility] Comment on above: Performed By: #### L [id number] ####[facility] (BEAKER)[address] [place] [address] AST [Catalytic activity/Vol] 9 U/L Low 13-39 [facility] Comment on above: Performed By: #### L [id number] ####[facility] (BEAKER)[address] [place] [address] Bilirubin [Mass/Vol] 1.1 mg/dL High 0.3-1.0 [facility] Comment on above: Performed By: #### L [id number] ####[facility] (BEAKER)[address] [place] [address] Calcium [Mass/Vol] 9.1 mg/dL Normal 8.6-10.3 [facility] Comment on above: Performed By: #### L [id number] ####[facility] (BEAKER)[address] [place] [address] Chloride [Moles/Vol] 100 mmol/L Normal 98-107 [facility] Comment on above: Performed By: #### L [id number] ####[facility] (BEAKER)[address] [place] [address] CO2 [Moles/Vol] 26 mmol/L Normal 21-[address] [facility] Comment on above: Performed By: #### L [id number] ####[facility] (BEAKER)[address] [place] [address] Creatinine [Mass/Vol] 0.82 mg/dL Normal 0.70-1.30 [facility] Comment on above: Performed By: #### L [id number] ####[facility] (BEAKER)[address] [place] [address] GLOMERULAR FILTRATION RATE ML/MIN/1.73 SQ M.PREDICTED 107.0 mL/min/1.73m*2 Normal >60.0 [facility] Comment on above: Result Comment: The [facility]???s estimated glomerular filtration rate (eGFR) [...] of individuals. Performed By: #### L [id number] ####[facility] ([facility])[address] [place] [address] Glucose [Mass/Vol] 161 mg/dL High 70-100 [facility] Comment on above: Performed By: #### L [id number] ####[facility] ([facility])[address] [place] [address] Potassium [Moles/Vol] 4.0 mmol/L Normal 3.5-5.1 [facility] Comment on above: Performed By: #### L [id number] ####[facility] ([facility])[address] [place] [address] Protein [Mass/Vol] 6.3 g/dL Normal 6.0-8.3 [facility] Comment on above: Performed By: #### L [id number] ####[facility] ([facility])[address] [place] [address] Sodium [Moles/Vol] 134 mmol/L Low 136-145 [facility] Comment on above: Performed By: #### L [id number] ####[facility] ([facility])[address] [place] [address] Urea nitrogen [Mass/Vol] 14 mg/dL Normal 7-25 [facility] Comment on above: Performed By: #### L [id number] ####[facility] ([facility])[address] [place] [address] UREA NITROGEN/CREATININE (MASS RATIO) IN SER/PLAS 17.1 [facility] Comment on above: Performed By: #### L [id number] ####[facility] ([facility])[address] [place] [address] CONSULTon 06-22-2023 CONSULT Normal [facility] MAGNESIUMon 06-22-2023 Magnesium [Mass/Vol] 1.8 mg/dL Low 1.9-2.7 [facility] Comment on above: Performed By: #### L [id number] ####[facility] (BEAKER)[address] [place] [address] PROTIME-INRon 06-22-2023 INR IN PPP BY COAGULATION ASSAY 1.05 Normal 0.90-1.10 [facility] Comment on above: Result [...] CHEST 1995;[id number]. Performed By: #### L [id number] ####[facility] (BEAKER)[address] [address] PROTHROMBIN TIME (PT) IN PPP BY COAGULATION ASSAY 13.7 Seconds Normal 12.3-14.8 [facility] Comment on above: Performed By: #### L [id number] ####[facility] (BEAKER)[address] [place] [address] 30on 06-21-2023 30 Normal [facility] 30 Normal [facility] 30 The patient is Moder ately Unstable - Medium risk of patient condition declining or worsening The patient's goals for the shift include COMFORT The clinical goals for the shift include VSS Normal [facility] 30 Normal [facility] ANESon 06-21-2023 ANES Normal [facility] B-TYPE NATRIURETIC PEPTIDEon 06-21-2023 Natriuretic peptide B (Bld) [Mass/Vol] 147 pg/mL High 0-100 [facility] Comment on above: Performed By: #### L [id number] ####[facility] ([facility])[address] [place] [address] BLOOD CULTUREon 06-21-2023 Bacteria identified Cx Nom (Bld) No growth at 5 days Normal [facility] Comment on above: Order Comment: From a different site than #1. Performed By: #### L [id number] ####[facility] ([employer])[address] [place] [address] C-REACTIVE PROTEINon 024 C REACTIVE PROTEIN (MG/L) IN SER/PLAS 23.3 mg/L High 0.0-7.0 [facility] Comment on above: Performed By: #### L [id number] ####[facility] ([employer])[address] [place] [address] CBC WITH AUTO DIFFERENTIALon 06-21-2023 Basophils (Bld) [#/Vol] 0.04 10*3/uL Normal 0.00-0.20 [facility] Comment on above: Performed By: #### L [id number] ####[facility] ([facility])[address] [place] [address] Basophils/100 WBC (Bld) 0.4 % Normal 0.0-1.0 [facility] Comment on above: Performed By: #### L [id number] ####[facility] ([facility])[address] [place] [address] Eosinophils (Bld) [#/Vol] 0.24 10*3/uL Normal 0.00-0.50 [facility] Comment on above: Performed By: #### L [id number] ####[facility] (BEAKER)[address] [place] [address] Eosinophils/100 WBC (Bld) 2.7 % Normal 0.0-6.0 [facility] Comment on above: Performed By: #### L [id number] ####[facility] (BEAKER)[address] [place] [address] Erythrocyte distribution width (RBC) [Ratio] 16.2 % High 11.5-15.0 [facility] Comment on above: Performed By: #### L [id number] ####[facility] (BEAKER)[address] [place] [address] ERYTHROCYTE MEAN CORPUSCULAR HEMOGLOBIN CONCENTRATION (G/DL) BY AUTOMATED 33.1 g/dL Normal 32.0-35.0 [facility] Comment on above: Performed By: #### L [id number] ####[facility] (BEAKER)[address] [place] [address] Hematocrit (Bld) [Volume fraction] 35.6 % Low 39.0-55.0 [facility] Comment on above: Performed By: #### L [id number] ####[facility] (BEAKER)[address] [place] [address] Hemoglobin (Bld) [Mass/Vol] 11.8 g/dL Low 13.0-17.0 [facility] Comment on above: Performed By: #### L [id number] ####[facility] (BEAKER)[address] [place] [address] Immature granulocytes (Bld) [#/Vol] 0.03 10*3/uL Normal 0.00-0.20 [facility] Comment on above: Performed By: #### L [id number] ####[facility] (BEAKER)[address] [place] [address] Immature granulocytes/100 WBC (Bld) 0.3 % Normal 0.0-1.0 [facility] Comment on above: Performed By: #### L [id number] ####[facility] (BEAKER)[address] [place] [address] Lymphocytes (Bld) [#/Vol] 1.23 10*3/uL Normal 1.20-4.00 [facility] Comment on above: Performed By: #### L [id number] ####[facility] (BEAKER)[address] [place] [address] Lymphocytes/100 WBC (Bld) 13.7 % Low 20.0-45.0 [facility] Comment on above: Performed By: #### L [id number] ####[facility] (BEAKER)[address] [place] [address] MCH (RBC) [Entitic mass] 29.4 pg Normal 27.0-33.0 [facility] Comment on above: Performed By: #### L [id number] ####[facility] (BEAKER)[address] [place] [address] MCV (RBC) [Entitic vol] 88.6 fL Normal 82.0-98.0 [facility] Comment on above: Performed By: #### L [id number] ####[facility] ([facility])[address] [place] [address] Monocytes (Bld) [#/Vol] 0.52 10*3/uL Normal 0.10-1.00 [facility] Comment on above: Performed By: #### L [id number] ####[facility] ([facility])[address] [place] [address] Monocytes/100 WBC (Bld) 5.8 % Normal 5.0-12.0 [facility] Comment on above: Performed By: #### L [id number] ####[facility] ([facility])[address] [place] [address] Neutrophils (Bld) [#/Vol] 6.92 10*3/uL Normal 1.60-7.60 [facility] Comment on above: Performed By: #### L [id number] ####[facility] ([facility])[address] [place] [address] Neutrophils/100 WBC (Bld) 77.1 % High 40.0-72.0 [facility] Comment on above: Performed By: #### L [id number] ####[facility] [facility] [place], [place] [address] NRBC (PER 100 WBCS) BY AUTOMATED COUNT 0.0 % Normal 0 [facility] Comment on above: Performed By: #### L [id number] ####[facility] ([facility])[address] [place] [address] PLATELETS (10*3/UL) IN BLOOD AUTOMATED COUNT 109 10*3/uL Low 150-400 [facility] Comment on above: Performed By: #### L [id number] ####[facility] ([facility])[address] [place] [address] RBC (Bld) [#/Vol] 4.02 10*6/uL Low 4.20-5.70 [facility] Comment on above: Performed By: #### L [id number] ####[facility] ([facility])[address], [place] [address] WBC (Bld) [#/Vol] 8.98 10*3/uL Normal 4.00-10.60 [facility] Comment on above: Performed By: #### L [id number] ####[facility] ([facility])[address] [place] [address] COMPREHENSIVE METABOLIC PANE Braulio 06-21-2023 Albumin [Mass/Vol] 4.0 g/dL Normal 3.5-5.7 [facility] Comment on above: Performed By: #### L [id number] ####[facility] ([facility] [place] [address] ALP [Catalytic activity/Vol] 47 U/L Normal 34-104 [facility] Comment on above: Performed By: #### L [id number] ####[facility] ([facility] [place] [address] ALT [Catalytic activity/Vol] 14 U/L Normal 7-52 [facility] Comment on above: Performed By: #### L [id number] ####[facility] ([facility])[address] [place] [address] Anion gap [Moles/Vol] 11 mmol/L Normal 7-20 [facility] Comment on above: Performed By: #### L [id number] ####[facility] ([facility])[address] [place] [address] AST [Catalytic activity/Vol] 11 U/L Low 13-39 [facility] Comment on above: Performed By: #### L [id number] ####[facility] ([facility])[address] [place] [address] Bilirubin [Mass/Vol] 1.1 mg/dL High 0.3-1.0 [facility] Comment on above: Performed By: #### L [id number] ####[facility] ([facility])[address] [place] [address] Calcium [Mass/Vol] 8.9 mg/dL Normal 8.6-10.3 [facility] Comment on above: Performed By: #### L [id number] ####[facility] ([facility])[address] [place] [address] Chloride [Moles/Vol] 100 mmol/L Normal 98-107 [facility] Comment on above: Performed By: #### L [id number] ####[facility] ([facility])[address] [place] [address] CO2 [Moles/Vol] 28 mmol/L Normal 21-[address] [facility] Comment on above: Performed By: #### L [id number] ####[facility] ([facility])[address] [place] [address] Creatinine [Mass/Vol] 0.83 mg/dL Normal 0.70-1.30 [facility] Comment on above: Performed By: #### L [id number] ####[facility] ([facility])[address] [place] [address] GLOMERULAR FILTRATION RATE ML/MIN/1.73 SQ M.PREDICTED 106.6 mL/min/1.73m*2 Normal >60.0 [facility] Comment on above: Result Comment: The [facility]???s estimated glomerular filtration rate (eGFR) [...] of individuals. Performed By: #### L [id number] ####[facility] ([facility])[address] [place] [address] Glucose [Mass/Vol] 101 mg/dL High 70-100 [facility] Comment on above: Performed By: #### L [id number] ####[facility] ([facility])[address] [place] [address] Potassium [Moles/Vol] 4.2 mmol/L Normal 3.5-5.1 [facility] Comment on above: Performed By: #### L [id number] ####[facility] ([facility])[address] [place] [address] Protein [Mass/Vol] 6.1 g/dL Normal 6.0-8.3 [facility] Comment on above: Performed By: #### L [id number] ####[facility] ([facility])[address] [place] [address] Sodium [Moles/Vol] 135 mmol/L Low 136-145 [facility] Comment on above: Performed By: #### L [id number] ####[facility] ([facility])[address] [place] [address] Urea nitrogen [Mass/Vol] 14 mg/dL Normal 7-25 [facility] Comment on above: Performed By: #### L [id number] ####[facility] ([facility])[address] [place] [address] UREA NITROGEN/CREATININE (MASS RATIO) IN SER/PLAS 16.9 Normal [facility] Comment on above: Performed By: #### L [id number] ####[facility] ([facility] [place] [address] CONSULTon 06-21-2023 CONSULT Normal [facility] CONSULT Normal [facility] CONSULT Normal [facility] CT ABDOMEN PELVIS W IV CONTR Kyle 06-21-2023 CT ABDOMEN PELVIS W IV CONTRAST Invalid Interpretation Code [facility] CT CHEST W IV CONTRASTon CT CHEST W IV CONTRAST Invalid Interpretation Code [facility] CT HEAD WO IV CONTRASTon CT HEAD WO IV CONTRAST Invalid Interpretation Code [facility] CT SOFT TISSUE NECK WO IV CO NTRASTon 06-21-2023 CT SOFT TISSUE NECK WO IV CONTRAST Invalid Interpretation Code [facility] HPon 06-21-2023 HP Normal [facility] HP Normal [facility] IRON AND TIBCon 06-21-2023 IRON (UG/DL) IN SER/PLAS 54 ug/dL Normal 50-212 [facility] Comment on above: Performed By: #### L [id number] ####[facility] ([facility])[address] [place] [address] IRON BINDING CAPACITY (UG/DL) IN SER/PLAS 304 ug/dL Normal 250-450 [facility] Comment on above: Performed By: #### L [id number] ####[facility] ([facility])[address] [place] [address] IRON BINDING CAPACITY.UNSATURATED (UG/DL) IN SER/PLAS 250.0 ug/dL Normal 155.0-355.0 [facility] Comment on above: Performed By: #### L [id number] ####[facility] ([facility])[address] [place] [address] IRON SATURATION (%) IN SER/PLAS 18 % Low 20-50 [facility] Comment on above: Performed By: #### L [id number] ####[facility] ([facility])[address] [place] [address] MR LUMBAR SPINE W AND WO CON TRASTon 06-21-2023 MR LUMBAR SPINE W AND WO CONTRAST Invalid Interpretation Code [facility] NURSNOTEon 06-21-2023 NURSNOTE Normal [facility] SEDIMENTATION RATEon 024 SEDIMENTATION RATE, ERYTHROCYTE 28 mm/hr High <=10 [facility] Comment on above: Performed By: #### L [id number] ####[facility] ([facility])[address] [place] [address] URINALYSIS WITH REFLEX CULTU REon 06-21-2023 BILIRUBIN, TOTAL PRESENCE IN URINE Negative Normal Negative [facility] Comment on above: Order Comment: Micro scopics not performed on urines with negative chemical reactions unless requested on original order. Performed By: #### L [id number] ####[facility] ([facility])[address] [place] [address] Clarity (U) Clear Normal Clear [facility] Comment on above: Order Comment: Micro scopics not performed on urines with negative chemical reactions unless requested on original order. Performed By: #### L [id number] ####[facility] ([facility])[address] [place] [address] Color (U) Straw Abnormal Yellow [facility] Comment on above: Order Comment: Micro scopics not performed on urines with negative chemical reactions unless requested on original order. Performed By: #### L [id number] ####[facility] ([facility])[address] [place] [address] Glucose (U) [Mass/Vol] Negative Normal Negative [facility] Comment on above: Order Comment: Micro scopics not performed on urines with negative chemical reactions unless requested on original order. Performed By: #### L [id number] ####[facility] ([facility])[address] [place] [address] HEMOGLOBIN PRESENCE IN URINE Negative Normal Negative [facility] Comment on above: Order Comment: Micro scopics not performed on urines with negative chemical reactions unless requested on original order. Performed By: #### L [id number] ####[facility] ([facility])[address] [place] [address] Ketones Ql (U) Negative Normal Negative [facility] Comment on above: Order Comment: Micro scopics not performed on urines with negative chemical reactions unless requested on original order. Performed By: #### L [id number] ####[facility] ([facility])[address] [place] [address] LEUKOCYTE ESTERASE PRESENCE IN URINE BY TEST STRIP Negative Normal Negative [facility] Comment on above: Order Comment: Micro scopics not performed on urines with negative chemical reactions unless requested on original order. Performed By: #### L [id number] ####[facility] ([facility])[address] [place] [address] NITRITE PRESENCE IN URINE Negative Normal Negative [facility] Comment on above: Order Comment: Micro scopics not performed on urines with negative chemical reactions unless requested on original order. Performed By: #### L [id number] ####[facility] ([facility])[address] [place] [address] pH (U) 8.0 [pH] Normal 5.0-8.0 [facility] Comment on above: Order Comment: Micro scopics not performed on urines with negative chemical reactions unless requested on original order. Performed By: #### L [id number] ####[facility] ([facility])[address] [place] [address] Protein (U) [Mass/Vol] Negative Normal Negative [facility] Comment on above: Order Comment: Micro scopics not performed on urines with negative chemical reactions unless requested on original order. Performed By: #### L [id number] ####[facility] ([facility])[address] [place] [address] Specific gravity (U) [Rel density] 1.011 Low 1.015-1.020 [facility] Comment on above: Order Comment: Micro scopics not performed on urines with negative chemical reactions unless requested on original order. Performed By: #### L [id number] ####[facility] ([facility])[address] [place] [address] VANCOMYCIN, RANDOMon 024 VANCOMYCIN (UG/ML) IN SER/PLAS 10.7 ug/mL Low 20.0-40.0 [facility] Comment on above: Performed By: #### L [id number] ####[facility] ([facility])[address] [place] [address] 30on 06-20-2023 30 The patient is Moder ately Stable - Low risk of patient condition declining or worsening The patient's goals for the shift include COMFORT The clinical goals for the shift include VSS Normal [facility] Consultation Noteon 06-20-19 24 Consultation Note [id number]#[id number] Normal [facility] HPon 06-20-2023 HP Normal [facility] RAD - CT Reporton 06-20-2023 RAD - CT Report [id number]#[id number] Normal [facility] RAD - MISCon 06-20-2023 RAD - MISC [id number]#[id number] Normal [facility] Coding Summaryon 06-17-2023 Coding Summary HTMLBase 64 IkawpsxbVEj6lBt+PGhlYWQ+PE 8EQAJjC14jaIRzcG3kC0QBBZmW FuinVYZDOSnDYiRbhuQuJC6kcC NjZXJu IC8+VH2aFQEeGfgxaZYfp8S8bK C4G90nqv5yEMpubDA3EVQkVcYe nkgrl4ocgZd2DShzBahzIxGe UPYebM32PED5rN75Zc25dEDaqT Tby9eznKv4VjUkKZVqXKC9pTik AXhaq2IeQOJuS22exUIsc7F5 BZInqIasvEKgCkMggJV9jJ0pXW vzwcdxl9fmhjgbPwa2fq58bTGn u2V1kOW5A9QzvfZ3KUDguPMf LznupDUXgU5gkbyhl0wxvoscPu UbPKHnMZw7DBl8LWKndLkhLsJh TT88UWV7XSJwxwQqZ1NqNKZp mKzhSnN8d8H5Bj5EF4MYMzduD5 VNTUFSWTwvdGQ+QF00xc09E1Kh UsjmQiz6PTSdIXG3rUF9tD7c BSNfAHgpp6B6yCV9E0NbgbSxws 9wa9ceDPFcVCawD33ipIUab0X9 GMQsqKR2ZEUrxPqqAjCohY68 Oyc+ZEBreEeme4XpFprjf4swt2 euoEd5SsacBUHwdqUghDlgTXB4 p6FiMs4xQXNszRN7rTG0lD1c WbFsMpG8CNycW749TjDcrDToXj wuL74oH0VwvZX+IWRcNlr0FDTr rNemJE1jC1XxJMNojsphkFTw pAeuYQ2jUEHhbyjbMYAxtJ0cFH HkZ1j2XwXrJlJ5EVihJ5LiNTBj bnjkGv10kM4hObDgUkN5AEcq J7QgcrR8AATflWGaAMraRUO8X3 7bh5W5VKBsANSdDWH3rMZ1iN9w bGlnbjogbGVmdDsgdmVydGlj ORqqGYgnG559MLNeaVxwZcYlQM luZyBEYXRlOiAgMDMvMTgvMjAy NDwvdGQ+UCFdCGC8fKmaZPWo tKNyXNhqFi5ozZffyCsgBA3zIZ WjbquwZLDtwM1lJYOeuBJbqTqm KB1oETMaytjii610DzFqMYW6 RVNsaMCxO7BgoI1wPbViWTOiCA ZbK6XvbPPfATrcY798VFwtErD6 XPOwseFdB3NpJMLanOgnXtD0 q7M5Ez1Wt4IvixhoA1BmmFSgQr HuPjajXFl3X1PsObdtwJY+PC90 GZTkMY21OZa9AEG9tLlkSZom EAAtL5HwaH4wKbToZGJgJHHnWz c+PHRhYmxlIHdpZHRoPScxMDAl BsLrrOxqZA1mUs6bWPKrWFIu rRpegQKjQvKko6yxCWHiQNnjFI 9ueAzfZ9RcmLT3NXSjo6k4Ky80 S69dB7HdmWI+LVKppLF8zHX0 vF9xSoJkIjF3TPzmI480ExUxyY RgPgnsr8khw2fcpHc6KbG2ORVj tqGvoEhfTKX3m8PqRg77U01t IHdpZHRoPSIxNSUiIHZhbGlnbj 4usM1iNs1+ZQVqaED9qUC7gG5q DqMbEqC4QIijJ269SzTsrWLq Xmhuu9ydt4ebkQe0WkXvYYEmvp SqnEonFZZ3t6DvUl95E8LfqNvj o8XnNga2ef23rOXtb5F1oPE6 E4ExNWAuaxwvtCOfjWzgOP2hSL HtqxsmCULnaO5yLANeR9o3TyBy YfZ8HUsjE8HfnsP8XQCjyNFe KSHacPOCrI7uxarqg8bwrgfzIv KePFTfAMu9TZg5EFYgnIikByCo NQX0XmR5USP7qSZxmZ6uaHlh hygruZ5wJcw+IVI6uERbyPOIGF 1lOjwvdGQ+GHBeNRM8mOvhLEgg LMPvoP4xKWQnY1d3JfHlTnR8 EAncD0UmsxT5VOQuqOZdMEBmjL FRwC6nfrrlw0ynhyuoSsClKDBr RLs8OBm3YHXxmFbqKcVsRFV0 EsX3FYE9cIYymF0iqBvyngdmgW 9wOyc+MlrtdNupEXS8JGy6W0Bk Gsp1YARljKloAW5akMQsRLxm Ix8npNqriUpcAE1rQWGwhmakt6 10TyRou9lpNTZocSOzHXfqNGV9 A09qf2J3ULUiXMAnKMN8jGD5 wH4arTnwpwpssOOcyJrvqoYvkK xtAZjcCGftH771GCUgjTnkPjCe XXt4M9EfQwx0UQPxhBenAL3q gGCwXQbeWw0thQccaPowSP2sFF Hoaeotb143NyWzr0daPQXflNYp TUenBLT6P85ws5U9HLDwQWEj JES9cQS4aO7fiItdvijcwCBduM vpatUukFooCGzkGPrbX699EBNg aVnoKqCpgZn2T8VcSzb4WQSa tOmuFI6twYWkINcuQp3qkJtnpK blBQ1eKGFkxgwka350UgQyo0pc QLJgjFIrONxyHKK8J18ej3P0 IDVkRFJrHMT4fVY1wF6zmXsgne ogbGVmdDsgdmVydGljYWwtYWxp P212SCDlcNlzWvYwlRpvyuZf VHhrMLc0S3FhGlweeQM+PC90YW SzZS92hYSmtBQra9ndvMy1CpNc WXWyEOS0xShnXPowe8ZnSZHb M13tcITci6A9AWAgcUshxLDtMh VijJP5bW0cLDrqsmxjb4tjqygl Bgcew2ykns20wZ87F81lTBmw GAVxREMuZOUwRQVfyEpkcp3ixS 9wIi8+ITGwsSQ2nWW7gE8nAZUp EuK5YOqfV613JqNthTVyZdon z1jzx9papKs6VmW1HUTrhtQzvV iqJDC0z9MzNn96B55oLSvvTHLc LAWzZEZpXJNzcYqsts8xsI7t Ii8+LHFbbMC0sBQ5aC0sWgBhYe S8BLpwQ759WhPhoIYtMwqeN55w D9WwnLD+FVNfBry3ALXypFet LC7lcFCmNSmkYi4wSFS2SbAuMk QcAXguP3MkJCTlmiwjdgzxxUX5 EUYyFIMpfS28Lx8ieZjeXRAr uNNSxT5vvqepx8sftafxGcWlTH YsWXa8PGa0DKIvgVkoGbIkJWN5 DvM9CXJ6iPFmgK7uwYcttcca kQ2xL1CrFASnspnkLd13dV6vVy LzHvR0KVrjYwl+O7HOEh6WQZZC HVTTPDUPS3ZHAPexiMF+PHRk UQY4oRdjPTmnHNBljF1iCFPvC1 l3WjAwQnL1COxfQ2ZxMRQdcfqs Mt26gP8dFnVsCtU9UDmsC9Pp qwA9DLDntQYeECqcNSE2D43ap0 D8LYHaJQShCOW9dDL0vF6bzZsx bjogbGVmdDsgdmVydGljYWwt QDrlK858IMPhzUpbJnN6JoA9Xv L5WfF5P5BtYbx5CLHkpIkkZV0w iCCuBPhjQd9qcVaiiOutEI4i RFYzdwtpDDPrqL8kYTDquVCteF bmMJ7rYETqjhqkc958FqQyNXR2 GSUqiAJiB1MvoY6iAtXsTLAi BTVgH0DyrHChIAxeM461LKhfMx W6FSEefoLcC2VkDNWjlTogVeC0 g9U8Vi84SHNDAOQigkbcqTE+ IJGlPDL7lAftVHzqTGCjyU4zOG DwN9g2HdQbMyX2AYolM1IpMMYt nvkxLb72wP5cLoDfDcU3DSpn W4JbdhN6LNWghBNpGVekBJB5I4 3cd3S6SRHiUBJfAVJ9xOM6yC1j bGlnbjogbGVmdDsgdmVydGlj PGtbRYkiB344XRTgsWraZw0YCW P0N7BkDji9EJQlkXrxBY5yqAIp BVnxLi4ujOroyIjwLO6hWALs qkqtUQGtvK0cHJHkkTPiyRdxRX 3eSEXrpxnis873BnTsYMI3UYYq gVItK5PvoI4vJuZeRVSuHYYl Q8MmmUSuIAkkN398ROopRfV7ZW UzwzDkD1KsVKBdoLhnGnX9t4Y3 Ko5VXKppeKX+ZF41qe74B5At XylwEbj1HJSoLDG6kLF3pG1jAH TpWUerg4O4vLQ0K1CiblDfll8o d5myCZHcRNuuQ37ayNYvn6T1 KAQgdBH3TPJoiLziGtDzoW57Ct c+MFXzpWneg9CvNcyfg9iju3hv zQj4KfIdQUDcoaSzkHwoRNL0 h0LoAo82X04gKKigEEJcULCvLI LfXMXccShxgh2anY2dSv2+PGNv tAC1oIV9bT1tNpJsEeF7CQvj I236RnZbxGFfXexbs0eiw5ztgM g4RlNiPWDdoqMacXrmLAI6p3Tx Cl80X2KnhAwsq7PxJet2oa49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 LT min 3V* There is Achilles castano rface calcaneal spurring. [facility] Other XR ankle LT min 3V* Impression dictated by: Nehal Horner M.D.12/16/2022 10:42 AM [facility] Other XR ankle LT min 3V* Dictation Location: [place] [address] [facility] Other XR ankle LT min 3V* Transcribed By: MARLO 12/16/22 1042 [facility] Other XR ankle LT min 3V* Dictated By: Nehal Horner II, MD 12/16/221041 [facility] [facility] Other XR ankle LT min 3V* Signed By: [facility] Other XR ankle LT min 3V* 12/16/22 1042 No rt [employer] Other XR ankle LT min 3V* [facility] Main [place] [id number] XRay Report Signed Patient: Nehal Baig MR#: [id number] 8 : 1970 Acct:[id number] Age/Sex: 52 / M ADM Date: 12/16/22 Loc: XDUCLY Room: Type: [facility] Attending Dr: Kelly MALONEY Copies to: [...] Nehal Horner M.D.12/16/2022 10:42 AM Dictation Location: [place] [address] Transcribed By: [facility] 12/16/22 1042 Dictated By: Nehal Horner II, MD 12/16/22 1042 Signed By: 12/16/22 1042 Normal [facility] 05-28-2022 RAKESH Telephone ([facility]) -- NEHAL BAIG ([id number]) 1970 M Date Time Provider Department 05/28/22 NATALIA AGUILLON [facility] During your visit today, we recorded the following information about you: Natalia Aguillon APRN.AUTOMATIC BRINE MIXER OPERATOR 05/28/2022 11:57 AM Signed Please call patient [...] [R80.9] Order(s):PROTEIN CREATININE RATIO [SQPRATIO] Order #: [id number] FUTURE Prescriptions as of 05/29/2022 - atorvastatin [...] Encounter Status:Closed by VIVEK RICO on 05/28/22 [facility] KIDNEY/BLADDERon 05-26-19 KIDNEY/BLADDER * * *Final [...] No evidence of renal calculus or hydronephrosis. Adjusto Writer Operator: PSCB Transcribe Date/Time: May 26 2022 2:43P Dictated by : BOB RODRIGUEZ MD This examination was interpreted and the report reviewed and electronically signed by: BOB RODRIGUEZ MD on May 27 2022 5:50AM EST [id number] [facility] ([facility] ) -- NEHAL BAIG ([id number]) 1970 M Date Time Provider Department 05/21/22 5:20 PM NATALIA AGUILLON [facility] During your visit today, we recorded the following information about you: Pulse Blood pressure Weight Height 89/minute 133/67 180.5 kg 1.854 m Natalia Aguillon APRN.AUTOMATIC BRINE MIXER OPERATOR 05/21/2022 6:45 PM Addendum This note [...] 2020. This is a workers comp issue-through [facility]/Dr. Cowan. 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 Shoulder replacement surgery left 08/23/24. 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 ENDO/WT: -needs f/up endo wt managmeent Dr. Jorge -needs f/up cuff setter lockstitch Britney Jamison -needs appt with Dr. Man/Agustina-endo wt management team [phone] Will review at upcoming appointment. Protein noted in urine. Vitamin D is low at 30.7-recommend kruh-dcf-cfssaix vitamin D3 1000 units daily. Cholesterol is elevated, worsening when compared to prior-we will discuss increasing cholesterol medication. Kidney, liver, electrolytes look fine. Thyroid lab looks fine. PSA/prostate lab looks fine. A1c is stable at 5.4. Blood count looks fine. Written by Natalia Aguillon APRN.AUTOMATIC BRINE MIXER OPERATOR on 05/21/2022 3:44 PM EST Last [...] Negative Ketones, Urine Negative Trace (A) Specific [place], Ur 1.005 - 1.030 >=1.030 (H) Hemoglobin/Blood,Ur [...] hyperlipidemia Obst (more content not included)... Normal [facility] 25(OH)D3 SerPl-mCncon 2022 25-hydroxyvitamin D3 [Mass/Vol] 30.7 ng/mL Low 31.0-80.0 [facility] Comment on above: Order Comment: Speci men Type: BLOOD SPECIMEN Ordering Facility: [facility] Address: [address] [address] Result Comment: Clas sification of 25 [place] Vitamin D status: Deficiency/Insufficiency: < or = 30 ng/ml. Sufficiency/Optimal Levels: 31-80 ng/mL Toxicity: > 100 ng/mL. Test performed by chemiluminescent immunoassay. Performed By: #### 1 989-3 #### [facility] CLIA [id number] [address] [place] [address] [place] CBC panel Auto (Bld)on 05-19 Erythrocyte distribution width (RBC) [Ratio] 12.9 % Normal 11.5-15.0 [facility] Comment on above: Order Comment: Speci men Type: URINE SPECIMEN Ordering Facility: [facility] Address: [address] [address] Performed By: #### L [id number] #### [facility] CLIA [id number] [address] [place] [address] [place] Hematocrit (Bld) [Volume fraction] 42.7 % Normal 39.0-51.0 [facility] Comment on above: Order Comment: Speci men Type: URINE SPECIMEN Ordering Facility: [facility] Address: [address] [address] Performed By: #### L [id number] #### [facility] CLIA [id number] [address] [place] [address] [place] [facility] Hemoglobin (Bld) [Mass/Vol] 14.5 g/dL Normal 13.0-17.0 [facility] Comment on above: Order Comment: Speci men Type: URINE SPECIMEN Ordering Facility: [facility] Address: [address] [place] [address] Performed By: #### L [id number] #### [facility] CLIA [id number] [address] [place] [address] [place] MCH (RBC) [Entitic mass] 29.2 pg Normal 26.0-34.0 [facility] Comment on above: Order Comment: Speci men Type: URINE SPECIMEN Ordering Facility: [facility] Address: [address] [place] [address] Performed By: #### L [id number] #### [facility] CLIA [id number] [address] [place] [address] [place] MCHC (RBC) [Mass/Vol] 34.0 g/dL Normal 30.5-36.0 [facility] Comment on above: Order Comment: Speci men Type: URINE SPECIMEN Ordering Facility: [facility] Address: [address] [place] [address] Performed By: #### L [id number] #### [facility] CLIA [id number] [address] [place] [address] [place] MCV (RBC) [Entitic vol] 85.9 fL Normal 80.0-100.0 [facility] Comment on above: Order Comment: Speci men Type: URINE SPECIMEN Ordering Facility: [facility] Address: [address] [place] [address] Performed By: #### L [id number] #### [facility] CLIA [id number] [address] [place] [address] [place] Nucleated RBC (Bld) [#/Vol] 10*3/uL Normal <0.01 [facility] Comment on above: Order Comment: Speci men Type: URINE SPECIMEN Ordering Facility: [facility] Address: [address] [place] [address] Performed By: #### L [id number] #### [facility] CLIA [id number] [address] [place] [address] STATES [facility] Platelet mean volume (Bld) [Entitic vol] 10.2 fL Normal 9.0-12.7 [facility] Comment on above: Order Comment: Speci men Type: URINE SPECIMEN Ordering Facility: [facility] Address: [address] [place] [address] Performed By: #### L [id number] #### [facility] CLIA [id number] [address] [place] [address] [place] Platelets (Bld) [#/Vol] 189 10*3/uL Normal 150-400 [facility] Comment on above: Order Comment: Speci men Type: URINE SPECIMEN Ordering Facility: [facility] Address: [address] [place] [address] Performed By: #### L [id number] #### [facility] CLIA [id number] [address] [place] [address] [place] RBC (Bld) [#/Vol] 4.97 10*6/uL Normal 4.20-6.00 [facility] Comment on above: Order Comment: Speci men Type: URINE SPECIMEN Ordering Facility: [facility] Address: [address] [place], [place] [address] Performed By: #### L [id number] #### [facility] CLIA [id number] [address] [place] [address] [place] WBC (Bld) [#/Vol] 5.26 10*3/uL Normal 3.70-11.00 [facility] Comment on above: Order Comment: Speci men Type: URINE SPECIMEN Ordering Facility: [facility] Address: [address] [place] [address] Performed By: #### L [id number] #### [facility] CLIA [id number] [address] [place] [address] [place] [facility] Comprehensive metabolic 2000 panelon 05-19-2022 Albumin [Mass/Vol] 4.4 g/dL Normal 3.9-4.9 [facility] Comment on above: Order Comment: Speci men Type: BLOOD SPECIMENOrdering Facility: [facility] Address: [address] [place] [address] Performed By: #### 2 4323-8, 24129-9 ####[facility]IA [id number] [place] [address] [place] ALP [Catalytic activity/Vol] 83 U/L Normal 38-113 [facility] Comment on above: Order Comment: Speci men Type: BLOOD SPECIMENOrdering Facility: [facility] Address: [address] [place] [address] Performed By: #### 2 4323-8, 29270-0 ####[facility] [id number] [place] [address] [place] ALT [Catalytic activity/Vol] 45 U/L Normal 10-54 [facility] Comment on above: Order Comment: Speci men Type: BLOOD SPECIMENOrdering Facility: [facility] Address: [address] [place] [address] Performed By: #### 2 4323-8, 84345-7 ####[facility] LAB[facility]IA [id number] [address] [address] [place] Anion gap [Moles/Vol] 10 mmol/L Normal 9-18 [facility] Comment on above: Order Comment: Speci men Type: BLOOD SPECIMENOrdering Facility: [facility] Address: [address] [place] [address] Performed By: #### 2 4323-8, 35149-8 ####[facility] [id number] [address] [id number] [place] AST [Catalytic activity/Vol] 31 U/L Normal 14-40 [facility] Comment on above: Order Comment: Speci men Type: BLOOD SPECIMENOrdering Facility: [facility] Address: [address] [address] Performed By: #### 2 4323-8, 16060-3 ####[facility]IA [id number] [place] [address] [place] Bilirubin [Mass/Vol] 0.6 mg/dL Normal 0.2-1.3 [facility] Comment on above: Order Comment: Speci men Type: BLOOD SPECIMENOrdering Facility: [facility] Address: [address] [address] Performed By: #### 2 432-8, 57509-2 ####[facility]IA [id number] [place] [address] [place] Calcium [Mass/Vol] 9.5 mg/dL Normal 8.5-10.2 [facility] Comment on above: Order Comment: Speci men Type: BLOOD SPECIMENOrdering Facility: [facility] Address: [address] [address] Performed By: #### 2 43238, 82152-9 ####[facility]IA [id number] [place] [address] [place] Chloride [Moles/Vol] 103 mmol/L Normal 97-105 [facility] Comment on above: Order Comment: Speci men Type: BLOOD SPECIMENOrdering Facility: [facility] Address: [address] [address] Performed By: #### 2 4323-8, 73863-3 ####[facility] LABCLIA [id number] [address] [address] [place] CO2 [Moles/Vol] 26 mmol/L Normal 22-30 [facility] Comment on above: Order Comment: Speci men Type: BLOOD SPECIMENOrdering Facility: [facility] Address: [address] [address] Performed By: #### 2 432-8, ####[facility]IA [id number] [place] [address] [place] Creatinine [Mass/Vol] 0.98 mg/dL Normal 0.73-1.22 [facility] Comment on above: Order Comment: Tessa flores Type: BLOOD SPECIMENOrdering Facility: [facility] Address: [address] [address] Performed By: #### 2 4323-8, ####[facility] LABIA [id number] [place] [address] [place] ESTIMATED GLOMERULAR FILTRATION RATE 95 mL/min/1.73m??? Normal >=60 [facility] Comment on above: Order Comment: Tessa flores Type: BLOOD SPECIMENOrdering Facility: [facility] Address: [address] [place] [address] Result Comment: Halle mated Glomerular Filtration Rate [...] actual GFR. Performed By: #### 2 4323-8, ####[facility] LABCLIA [id number] [place] [address] [place] Glucose [Mass/Vol] 203 mg/dL High 74-99 [facility] Comment on above: Order Comment: Tessa flores Type: BLOOD SPECIMENOrdering Facility: [facility] Address: [address] [address] Result Comment: The [place] Diabetes Association (ADA) provides guidance for cutoff [...] Standards of Medical Care in Diabetes 2016, [place] Diabetes Association. Diabetes Care. 2016.39(Suppl 1). Performed By: #### 2 4323-8, 21235-5 ####[facility]CLIA [id number] [place] [address] [place] Potassium [Moles/Vol] 4.6 mmol/L Normal 3.7-5.1 [facility] Comment on above: Order Comment: Speci men Type: BLOOD SPECIMENOrdering Facility: [facility] Address: [address] [address] Performed By: #### 2 4328, 59265-0 ####[facility]IA [id number] [address] [address] [place] Protein [Mass/Vol] 7.4 g/dL Normal 6.3-8.0 [facility] Comment on above: Order Comment: Speci men Type: BLOOD SPECIMENOrdering Facility: [facility] Address: [address] [address] Performed By: #### 2 4328, ####[facility]IA [id number] [address] [address] [place] Sodium [Moles/Vol] 139 mmol/L Normal 136-144 [facility] Comment on above: Order Comment: Speci men Type: BLOOD SPECIMENOrdering Facility: [facility] Address: [address] [address] Performed By: #### 2 43238, ####[facility]IA [id number] [address] [address] [place] Urea nitrogen [Mass/Vol] 17 mg/dL Normal 9-24 [facility] Comment on above: Order Comment: Speci men Type: BLOOD SPECIMENOrdering Facility: [facility] Address: [address] [address] Performed By: #### 2 4323-8, 93236-6 ####[facility] LABCLIA [id number] [address] OF [facility] HbA1c (Bld)on 05-19-2022 Average glucose Estimated from glycated hemoglobin (Bld) [Mass/Vol] 108 mg/dL Normal [facility] Comment on above: Order Comment: Speci men Type: URINE SPECIMEN Order[facility] Address: [address] [address] Result Comment: eAG: (Estimated average glucose) is a calculated value from HgbA1c and is civil rights representative of the average blood glucose level in the last 2-3 month period. Performed By: #### L [id number] #### [facility] CLIA [id number] [address] [place] [address] HbA1c (Bld) [Mass fraction] 5.4 % Normal 4.3-5.6 [facility] Comment on above: Order Comment: Speci men Type: URINE SPECIMEN [facility] Address: [address] [address] Result Comment: Amer [place] Diabetes Association guidelines indicate that patients with HgbA1c in the range 5.7-6.4% are at increased risk for development of diabetes, and intervention by lifestyle modification may be beneficial. HgbA1c greater or equal to 6.5% is considered diagnostic of diabetes. Performed By: #### L [id number] #### [facility] CLIA [id number] [address] [place] [address] OF [facility] Lipid 1996 panelon 3 Cholesterol [Mass/Vol] 219 mg/dL High <200 [facility] Comment on above: Order Comment: Speci men Type: BLOOD SPECIMENOrdering Facility: [facility] Address: [address] [address] Result Comment: <200 mg/dL, Desirable 200-239 mg/dL, Borderline high >239 mg/dL, High Performed By: #### 2 4323-8, 29131-2 ####[facility] LABCLIA [id number] [place] [address] [facility] Cholesterol in HDL [Mass/Vol] 38 mg/dL Low >39 [facility] Comment on above: Order Comment: Tessa sandra Type: BLOOD SPECIMENOrdering Facility: [facility] Address: [address] [place] [address] Result Comment: 40-5 9 mg/dL, Acceptable >59 mg/dL, High: Negative risk factor for coronary heart disease <40 mg/dL, Low: Positive risk factor for coronary heart disease Performed By: #### 2 4323-8, 71713-9 ####[facility] LABCLIA [id number] [address] [address] [facility] Cholesterol in LDL [Mass/Vol] 149 mg/dL High <100 [facility] Comment on above: Order Comment: Tessa flores Type: BLOOD SPECIMENOrdering Facility: [facility] Address: [address] [place] [address] Result Comment: <100 mg/dL, Optimal 100-129 mg/dL, Near optimal/above optimal 130-159 mg/dL, Borderline high 160-189 mg/dL, High >189 mg/dL, Very high Secondary prevention optimal LDL Cholesterol levels are recommended to be < 70 mg/dL Performed By: #### 2 4323-8, 08847-4 ####[facility]IA [id number] [address] [address] [facility] Cholesterol in LDL/Cholesterol in HDL [Mass ratio] 3.92 {ratio} High <2.54 [facility] Comment on above: Order Comment: Selmai sandra Type: BLOOD SPECIMENOrdering Facility: [facility] Address: [address] [place] [address] Result Comment: Doris tucker: 1. National Cholesterol Education Program ATP III Guideline At-A-Glance Quick Desk Reference: National Heart, Lung, and [place]. National Institutes of Health. 2001: NIH Publication No. 01-3305. 2. An International Atherosclerosis Society position paper: global recommendations for the management of dyslipidemia: executive summary, Atherosclerosis. 2014: 232(2):410-413. Performed By: #### 2 4323-8, 20794-2 ####[facility] LABCLIA [id number] [place] [address] [place] Cholesterol in VLDL [Mass/Vol] 32 mg/dL High <30 [facility] Comment on above: Order Comment: Speci men Type: BLOOD SPECIMENOrdering Facility: [facility] Address: [address] [address] Performed By: #### 2 4323-8, 44848-6 ####[facility] LABIA [id number] [place] [address] [place] Cholesterol non HDL [Mass/Vol] 181 mg/dL High <130 [facility] Comment on above: Order Comment: Speci men Type: BLOOD SPECIMENOrdering Facility: [facility] Address: [address] [place] [address] Result Comment: <130 mg/dL, Optimal 130-159 mg/dL, Near optimal/above optimal 160-189 mg/dL, Borderline high 190-219 mg/dL, High >219 mg/dL, Very high Secondary prevention optimal non HDL Cholesterol levels are recommended to be <100 mg/dL Performed By: #### 2 4323-8, 72824-8 ####[facility]IA [id number] [place] [address] [place] Cholesterol.total/Ch olesterol in HDL [Mass ratio] 5.76 {ratio} High <5.10 [facility] Comment on above: Order Comment: Speci men Type: BLOOD SPECIMENOrdering Facility: [facility] Address: [address] [address] Performed By: #### 2 4323-8, 71692-0 ####[facility] LABIA [id number] [address] [address] [place] FASTING TIME 10 hrs Normal [facility] Comment on above: Order Comment: Speci men Type: BLOOD SPECIMENOrdering Facility: [facility] Address: [address] [address] Performed By: #### 2 4323-8, 98512-0 ####[facility] LABCLIA [id number] [place] [address] [place] Triglyceride [Mass/Vol] 161 mg/dL High <150 [facility] Comment on above: Order Comment: Speci men Type: BLOOD SPECIMENOrdering Facility: [facility] Address: [address] [address] Result Comment: <150 mg/dL, Normal 150-199 mg/dL, Borderline high 200-499 mg/dL, High >499 mg/dL, Very high Performed By: #### 2 4323-8, 10914-2 ####[facility] LABCLIA [id number] [place] [id number] [place] PSA/PROSTSPECAG SCRNon 05-19 Prostate specific Ag [Mass/Vol] 0.56 ng/mL Normal <2.60 [facility] Comment on above: Order Comment: Speci men Type: BLOOD SPECIMENOrdering Facility: [facility] Address: [address] [address] [address] Result Comment: Tota l PSA test methodology used is the Electrochemiluminescence Immunoassay by [employer]. Total PSA values by differing methodologies cannot be interchanged. Performed By: #### P SAS1 ####[facility] LABCLIA [id number] [place] [address] [place] TSH SerPl-aCncon 05-19-2022 TSH Qn 1.020 m[IU]/L Normal 0.270-4.200 [facility] Comment on above: Order Comment: Speci men Type: BLOOD SPECIMENOrdering Facility: [facility] Address: [address] [address] Performed By: #### 3 016-3 ####[facility] LABCLIA [id number] [place] [address] [place] URINALYSIS, REFLEX MICROSCOP ICon 05-19-2022 Bilirubin Ql (U) Negative Normal Negative [facility] Comment on above: Order Comment: Speci men Type: URINE SPECIMEN [facility] Address: [address] [place] [address] Performed By: #### L [id number] #### [facility] CLIA [id number] [address] [place] [address] [place] Clarity (Unsp spec) Clear Normal Clear [facility] Comment on above: Order Comment: Speci men Type: URINE SPECIMEN [facility] Address: [address] [place] [address] Performed By: #### L [id number] #### [facility] CLIA [id number] [address] [place] [address] Color (U) Yellow Normal Yellow [facility] Comment on above: Order Comment: Speci men Type: URINE SPECIMEN [facility] Address: [address] [place] [address] Performed By: #### L [id number] #### [facility] CLIA [id number] [address] [place] [address] [place] Epithelial cells LM.HPF (Urine sed) [#/Area] Few Normal [facility] Comment on above: Order Comment: Speci men Type: URINE SPECIMEN [facility] Address: [address] [place] [address] Performed By: #### L [id number] #### [facility] CLIA [id number] [address] [place] [address] [place] Glucose Test strip (U) [Mass/Vol] Negative Normal Negative [facility] Comment on above: Order Comment: Speci men Type: URINE SPECIMEN [facility] Address: [address] [place] [address] Performed By: #### L [id number] #### [facility] CLIA [id number] [address] [place] [address] [place] Hemoglobin Ql (U) Negative Normal Negative [facility] Comment on above: Order Comment: Speci men Type: URINE SPECIMEN [facility] Address: [address] [place] [address] Performed By: #### L [id number] #### [facility] CLIA [id number] [address] [place] [address] [place] Ketones Ql (U) Trace Abnormal Negative [facility] Comment on above: Order Comment: Speci men Type: URINE SPECIMEN [facility] Address: [address] [place] [address] Performed By: #### L [id number] #### [facility] CLIA [id number] [address] [place] [address] STATES [facility] Leukocyte esterase Test strip Ql (U) Negative Normal Negative [facility] Comment on above: Order Comment: Speci men Type: URINE SPECIMEN [facility] Address: [address] [place] [address] Performed By: #### L [id number] #### [facility] CLIA [id number] [address] [place] [address] [place] Nitrite Ql (U) Negative Normal Negative [facility] Comment on above: Order Comment: Speci men Type: URINE SPECIMEN [facility] Address: [address] [place] [address] Performed By: #### L [id number] #### [facility] CLIA [id number] [address] [place] [address] [place] pH (U) 5.5 [pH] Normal 5.0-8.0 [facility] Comment on above: Order Comment: Speci men Type: URINE SPECIMEN [facility] Address: [address] [place] [address] Performed By: #### L [id number] #### [facility] CLIA [id number] [address] [place] [address] [place] Protein (U) [Mass/Vol] 1+ Abnormal Negative [facility] Comment on above: Order Comment: Speci men Type: URINE SPECIMEN [facility] Address: [address] [place] [address] Performed By: #### L [id number] #### [facility] CLIA [id number] [address] [place] [address] STATES [facility] RBC LM.HPF (Urine sed) [#/Area] 0-3 /HPF Normal 0-3 /HPF [facility] Comment on above: Order Comment: Speci men Type: URINE SPECIMEN [facility] Address: [address] [place] [address] Performed By: #### L [id number] #### [facility] CLIA [id number] [address] [place] [address] Specific gravity (U) [Rel density] >=1.030 High 1.005-1.030 [facility] Comment on above: Order Comment: Speci men Type: URINE SPECIMEN [facility] Address: [address] [place] [address] Performed By: #### L [id number] #### [facility] CLIA [id number] [address] [place] [address] Urobilinogen Ql (U) 0.2 EU/dL Normal 0.2-1.0 EU/dL [facility] Comment on above: Order Comment: Speci men Type: URINE SPECIMEN [facility] Address: [address] [place] [address] Performed By: #### L [id number] #### [facility] CLIA [id number] [address] [place] [address] OF [facility] WBC LM.HPF (Urine sed) [#/Area] 0-5 /HPF Normal 0-5 /HPF [facility] Comment on above: Order Comment: Speci men Type: URINE SPECIMEN [facility] Address: [address] [place] [address] Performed By: #### L [id number] #### [facility] CLIA [id number] [address] [place] [address] [place] MRI CSPINE WO [...] HERRERA Date: 2022-04-23 06:50 Normal [facility] XR FOREIGN BODY EYEon 2022 XR FOREIGN BODY EYE EXAMINATION: XR FORE IGN BODY EYE HISTORY: Foreign body in eye COMPARISON: No relevant comparison available. FINDINGS: ORBITS: Negative for a metallic foreign body. OTHER: Negative. IMPRESSION: 1. No metallic foreign body within the orbits. Electronically authenticated by: JAYY GIVENS Date: 2022-04-20 13:52 Normal [facility] CNOVon 02-15-2022 CNOV Office Visit ([facility] ) -- NEHAL BAIG ([id number]) 1970 M Date Time Provider Department 02/15/22 2:20 PM NATALIA AGUILLONNEMICHAELA During your visit today, we recorded the following information about you: Pulse Blood pressure Weight 72/minute 147/82 177.8 kg Natalia Aguillon APRN.AUTOMATIC BRINE MIXER OPERATOR 02/15/2022 4:56 PM Signed Natalia Aguillon APRN.LEODAN 02/15/2022 4:56 PM Signed This note was created using NoteWriter. Subjective Nehal Baig is a 51 year old male. CC: routine f/up Last seen: HPI ENDO/WT: -needs f/up endo wt managmeent Dr. Jorge -needs f/up cuff setter lockstitch Britney Jamison -needs appt with Dr. Man/PsyD-endo wt management team [phone] Has been off metformin 6 weeks + [...] 2020. This is a workers comp issue-through [facility]/Dr. Cowan. 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 Shoulder replacement surgery left 08/23/24. 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 HM: -declines flu vaccine [...] looks fine. Vitamin D is low-please begin djkl-kfv-sqppjrw vitamin D3 2000 units daily. Urine asymptomatic. Component Latest Ref Rng AND Units 02/10/2022 Color Yellow Yellow Clarity Clear Clear Glucose, Urine Negative Negative Bilirubin, Urine Negative Negative Ketones, Urine Negative Negative Specific [place], Ur 1.005 - 1.030 1.037 (H) Hemoglobin/Blood,Ur [...] other (Epilepsy) (more content not included)... Normal [facility] 25(OH)D3 [facility] 25-hydroxyvitamin D3 [Mass/Vol] 28.2 ng/mL Low 31.0-80.0 [facility] Comment on above: Order Comment: Speci men Type: BLOOD SPECIMENOrdering Facility: [facility] Address: [address] [place] [address] [place] [address] Result Comment: Clas sification of 25 [place] Vitamin D status: Deficiency/Insufficiency: < or = 30 ng/ml. Sufficiency/Optimal Levels: 31-80 ng/mL Toxicity: > 100 ng/mL. Test performed by chemiluminescent immunoassay. Performed By: #### 1 989-3 ####[facility] [id number] [address] [place] CBC panel Auto (Bld)on 02-10 Erythrocyte distribution width (RBC) [Ratio] 13.2 % Normal 11.5-15.0 [facility] Comment on above: Order Comment: Speci men Type: BLOOD SPECIMENOrdering Facility: [facility] Address: [address] [place] [address] Performed By: #### 5 8410-2 ####[facility] [id number] [address] OF [facility] Hematocrit (Bld) [Volume fraction] 41.9 % Normal 39.0-51.0 [facility] Comment on above: Order Comment: Speci men Type: BLOOD SPECIMENOrdering Facility: [facility] Address: [address] [place] [address] Performed By: #### 5 8410-2 ####[facility] [id number] [address] [place] Hemoglobin (Bld) [Mass/Vol] 13.9 g/dL Normal 13.0-17.0 [facility] Comment on above: Order Comment: Speci men Type: BLOOD SPECIMENOrdering Facility: [facility] Address: [address] [place], [place] [address] Performed By: #### 5 8410-2 ####[facility] LABIA [id number] [address] [place] MCH (RBC) [Entitic mass] 29.0 pg Normal 26.0-34.0 [facility] Comment on above: Order Comment: Speci men Type: BLOOD SPECIMENOrdering Facility: [facility] Address: [address] Performed By: #### 5 8410-2 ####[facility] [id number] [address] STATES [facility] MCHC (RBC) [Mass/Vol] 33.2 g/dL Normal 30.5-36.0 [facility] Comment on above: Order Comment: Speci men Type: BLOOD SPECIMENOrdering Facility: [facility] Address: [address] [place] [address] Performed By: #### 5 8410-2 ####[facility] [id number] [address] [place] MCV (RBC) [Entitic vol] 87.5 fL Normal 80.0-100.0 [facility] Comment on above: Order Comment: Speci men Type: BLOOD SPECIMENOrdering Facility: [facility] Address: [address] Performed By: #### 5 8410-2 ####[facility] [id number] [place] [address] [place] Nucleated RBC (Bld) [#/Vol] 10*3/uL Normal <0.01 [facility] Comment on above: Order Comment: Speci men Type: BLOOD SPECIMENOrdering Facility: [facility] Address: [address] [place], [place] [address] Performed By: #### 5 8410-2 ####[facility] [id number] [place] [address] [place] Platelet mean volume (Bld) [Entitic vol] 10.6 fL Normal 9.0-12.7 [facility] Comment on above: Order Comment: Speci men Type: BLOOD SPECIMENOrdering Facility: [facility] Address: [address] [place], [place] [address] Performed By: #### 5 8410-2 ####[facility] LABCLIA [id number] [place] [address] [place] Platelets (Bld) [#/Vol] 198 10*3/uL Normal 150-400 [facility] Comment on above: Order Comment: Speci men Type: BLOOD SPECIMENOrdering Facility: [facility] Address: [address] [place] [address] Performed By: #### 5 8410-2 ####[facility] LABCLIA [id number] [place] [address] [place] RBC (Bld) [#/Vol] 4.79 10*6/uL Normal 4.20-6.00 [facility] Comment on above: Order Comment: Speci men Type: BLOOD SPECIMENOrdering Facility: [facility] Address: [address] [place] [address] Performed By: #### 5 8410-2 ####[facility] LABIA [id number] [place] [address] [place] WBC (Bld) [#/Vol] 6.46 10*3/uL Normal 3.70-11.00 [facility] Comment on above: Order Comment: Speci men Type: BLOOD SPECIMENOrdering Facility: [facility] Address: [address] [place] [address] Performed By: #### 5 8410-2 ####[facility] LABIA [id number] [place] [address] [facility] [place] Comprehensive metabolic 2000 panelon 02-10-2022 Albumin [Mass/Vol] 4.5 g/dL Normal 3.9-4.9 [facility] Comment on above: Order Comment: Speci men Type: BLOOD SPECIMENOrdering Facility: [facility] Address: [address] [place] [address] Performed By: #### 3 016-3, 78201-9 ####[facility] LABCLIA [id number] [place] [address] [place]#### 22555-4 ####[facility] LABCLIA [id number] [place] [address] [place] AMERICASELECT [facility]ICAL [facility] [place] LABORATORYCLIA [id number] [place] [address] [place] ALP [Catalytic activity/Vol] 85 U/L Normal 38-113 [facility] Comment on above: Order Comment: Speci men Type: BLOOD SPECIMENOrdering Facility: [facility] Address: [address] [place] [address] Performed By: #### 3 016-3, 90515-1 ####[facility] LABCLIA [id number] [place] [address] [place]#### 27422-2 ####[facility] LABCLIA [id number] [address] STATES OF AMERICAEAST [facility] LABORATORYCLIA [id number] [place] [address] [place] ALT [Catalytic activity/Vol] 34 U/L Normal 10-54 [facility] Comment on above: Order Comment: Speci men Type: BLOOD SPECIMENOrdering Facility: [facility] Address: [address] Performed By: #### 3 016-3, 47391-6 ####[facility] LABCLIA [id number] [place] [address] [place]#### 03208-7 ####[facility] LABCLIA [id number] [address] [address] [place] AMERICASELECT [facility]ICAL [facility] [place] LABORATORYCLIA [id number] [place] [address] [place] Anion gap [Moles/Vol] 10 mmol/L Normal 9-18 [facility] Comment on above: Order Comment: Speci men Type: BLOOD SPECIMENOrdering Facility: [facility] Address: [address] [id number] Performed By: #### 3 016-3, 79641-2 ####[facility] LABCLIA [id number] [place] [address] [place]#### 80311-0 ####[facility] LABCLIA [id number] [address] STATES OF [facility] LABORATORYCLIA [id number] [place] [address] [place] AST [Catalytic activity/Vol] 25 U/L Normal 14-40 [facility] Comment on above: Order Comment: Speci men Type: BLOOD SPECIMENOrdering Facility: [facility] Address: [address] [place] [address] Performed By: #### 3 016-3, ####[facility] LABCLIA [id number] [place] [address] [place]#### 80419-4 ####[facility] LABCLIA [id number] [address] STATES OF [facility] LABORATORYCLIA [id number] [place] [address] [place] Bilirubin [Mass/Vol] 0.4 mg/dL Normal 0.2-1.3 [facility] Comment on above: Order Comment: Speci men Type: BLOOD SPECIMENOrdering Facility: [facility] Address: [address] [id number] Performed By: #### 3 016-3, 02471-7 ####[facility] LABCLIA [id number] [place] [address] [place]#### 36858-6 ####[facility] LABCLIA [id number] [place] AV[facility]ED[facility] [id number] [place] [address] [place] LABORATORYCLIA [id number] [place] [address] [place] Calcium [Mass/Vol] 9.3 mg/dL Normal 8.5-10.2 [facility] Comment on above: Order Comment: Speci men Type: BLOOD SPECIMENOrdering Facility: [facility] Address: [address] Performed By: #### 3 016-3, 72946-6 ####[facility] LABCLIA [id number] [place] [address] [place]#### 89947-7 ####[facility] LABCLIA [id number] [address] STATES OF [facility] LABORATORYCLIA [id number] [place] [address] [place] Chloride [Moles/Vol] 103 mmol/L Normal 97-105 [facility] Comment on above: Order Comment: Speci men Type: BLOOD SPECIMENOrdering Facility: [facility] Address: [address] [place] [address] Performed By: #### 3 016-3, 71072-3 ####[facility] LABCLIA [id number] [place] [address] [place]#### 03692-1 ####[facility] LABCLIA [id number] [place] [address] [place] AMERICASELECT [facility]ICAL [facility] [place] LABORATORYCLIA [id number] [place] [address] [place] CO2 [Moles/Vol] 26 mmol/L Normal 22-30 [facility] Comment on above: Order Comment: Speci men Type: BLOOD SPECIMENOrdering Facility: [facility] Address: [address] [place] [address] Performed By: #### 3 016-3, 87079-0 ####[facility] LABCLIA [id number] [address] [place]#### 57152-8 ####[facility] LABCLIA [id number] [address] LABORATORYCLIA [id number] [place] [address] [place] Creatinine [Mass/Vol] 0.90 mg/dL Normal 0.73-1.22 [facility] Comment on above: Order Comment: Speci men Type: BLOOD SPECIMENOrdering Facility: [facility] Address: [address] [place] [address] Performed By: #### 3 016-3, ####[facility] LABCLIA [id number] [address]#### 76092-3 ####[facility] LABCLIA [id number] [address] LABORATORYCLIA [id number] [address] [place] ESTIMATED GLOMERULAR FILTRATION RATE 105 mL/min/1.73m??? Normal >=60 [facility] Comment on above: Order Comment: Speci men Type: BLOOD SPECIMENOrdering Facility: [facility] Address: [address] [place] [address] Result Comment: Halle mated Glomerular Filtration Rate [...] actual GFR. Performed By: #### 3 016-3, ####[facility] LABCLIA [id number] [address] [place]#### 54264-6 ####[facility] LABCLIA [id number] [address] LABORATORYCLIA [id number] [place] [address] [place] Glucose [Mass/Vol] 115 mg/dL High 74-99 [facility] Comment on above: Order Comment: Speci men Type: BLOOD SPECIMENOrdering Facility: [facility] Address: [address] [place] [address] Result Comment: The [place] Diabetes Association (ADA) provides guidance for cutoff [...] Standards of Medical Care in Diabetes 2016, [employer] Diabetes Association. Diabetes Care. 2016.39(Suppl 1). Performed By: #### 3 016-3, 57617-6 ####[facility] LABCLIA [id number] [place] [address] [place]#### 16246-8 ####[facility] LABCLIA [id number] [address] LABORATORYCLIA [id number] [place] [address] [place] Potassium [Moles/Vol] 4.2 mmol/L Normal 3.7-5.1 [facility] Comment on above: Order Comment: Speci men Type: BLOOD SPECIMENOrdering Facility: [facility] Address: [address] [id number] Performed By: #### 3 016-3, 65796-6 ####[facility] LABCLIA [id number] [place] [address] [place]#### 50631-5 ####[facility] LABCLIA [id number] [place] [address] [place] [facility] [place] LABORATORYCLIA [id number] [place] [address] [place] Protein [Mass/Vol] 6.9 g/dL Normal 6.3-8.0 [facility] Comment on above: Order Comment: Speci men Type: BLOOD SPECIMENOrdering Facility: [facility] Address: [address] [place] [address] Performed By: #### 3 016-3, 34805-3 ####[facility] LABCLIA [id number] [place] [address] [place]#### 62032-5 ####[facility] LABCLIA [id number] [place] [address] [place] [facility] LABORATORYCLIA [id number] [place] [address] [place] Sodium [Moles/Vol] 139 mmol/L Normal 136-144 [facility] Comment on above: Order Comment: Speci men Type: BLOOD SPECIMENOrdering Facility: [facility] Address: [address] [place] [address] Performed By: #### 3 016-3, 18043-4 ####[facility] LABCLIA [id number] [place] [address] [place]#### 76611-0 ####[facility] LABCLIA [id number] [place] [address] [place] AMERICASELECT [facility] [place] LABORATORYCLIA [id number] [place] [address] [place] Urea nitrogen [Mass/Vol] 15 mg/dL Normal 9-24 [facility] Comment on above: Order Comment: Speci men Type: BLOOD SPECIMENOrdering Facility: [facility] Address: [address] [place] [address] Performed By: #### 3 016-3, 29372-1 ####[facility] LABCLIA [id number] [address]#### 01859-5 ####[facility] LABCLIA [id number] [address] LABORATORYCLIA [id number] [place] [address] [facility] HbA1c (Bld)on 02-10-2022 Average glucose Estimated from glycated hemoglobin (Bld) [Mass/Vol] 105 mg/dL Normal [facility] Comment on above: Order Comment: Speci men Type: BLOOD SPECIMENOrdering Facility: [facility] Address: [address] [place] [address] Result Comment: eAG: (Estimated average glucose) is a calculated value from HgbA1c and is civil rights representative of the average blood glucose level in the last 2-3 month period. Performed By: #### 5 5454-3 ####[facility] LABIA [id number] [address] STATES [facility] HbA1c (Bld) [Mass fraction] 5.3 % Normal 4.3-5.6 [facility] Comment on above: Order Comment: Speci men Type: BLOOD SPECIMENOrdering Facility: [facility] Address: [address] [place] [address] Result Comment: Amer ican Diabetes Association guidelines indicate that patients with HgbA1c in the range 5.7-6.4% are at increased risk for development of diabetes, and intervention by lifestyle modification may be beneficial. HgbA1c greater or equal to 6.5% is considered diagnostic of diabetes. Performed By: #### 5 5454-3 ####[facility] LABCLIA [id number] [place] [address] [place] Lipid 1996 panelon 2 Cholesterol [Mass/Vol] 179 mg/dL Normal <200 [facility] Comment on above: Order Comment: Speci men Type: BLOOD SPECIMENOrdering Facility: [facility] Address: [address] [place] [address] Result Comment: <200 mg/dL, Desirable 200-239 mg/dL, Borderline high >239 mg/dL, High Performed By: #### 3 016-3, 28272-4 ####[facility] LABCLIA [id number] [address] [place]#### 54673-6 ####[facility] LABCLIA [id number] [address] [place] LABORATORYCLIA [id number] [address] Cholesterol in HDL [Mass/Vol] 36 mg/dL Low >39 [facility] Comment on above: Order Comment: Speci men Type: BLOOD SPECIMENOrdering Facility: [facility] Address: [address] [place] [address] Result Comment: 40-5 9 mg/dL, Acceptable >59 mg/dL, High: Negative risk factor for coronary heart disease <40 mg/dL, Low: Positive risk factor for coronary heart disease Performed By: #### 3 016-3, 82665-7 ####[facility] LABCLIA [id number] [address] [place]#### 71970-5 ####[facility] LABCLIA [id number] [address] [place] LABORATORYCLIA [id number] [address] Cholesterol in LDL [Mass/Vol] 104 mg/dL High <100 [facility] Comment on above: Order Comment: Speci men Type: BLOOD SPECIMENOrdering Facility: [facility] Address: [address] [place] [address] Result Comment: <100 mg/dL, Optimal 100-129 mg/dL, Near optimal/above optimal 130-159 mg/dL, Borderline high 160-189 mg/dL, High >189 mg/dL, Very high Secondary prevention optimal LDL Cholesterol levels are recommended to be < 70 mg/dL Performed By: #### 3 016-3, ####[facility] LABCLIA [id number] [address] [place]#### 91138-8 ####[facility] LABCLIA [id number] [address] LABORATORYCLIA [id number] [address] [place] Cholesterol in LDL/Cholesterol in HDL [Mass ratio] 2.89 {ratio} High <2.54 [facility] Comment on above: Order Comment: Speci men Type: BLOOD SPECIMENOrdering Facility: [facility] Address: [address] [place] [address] Result Comment: Refe rence: 1. National Cholesterol Education Program ATP III Guideline At-A-Glance Quick Desk Reference: National Heart, Lung, and Blood [place]. National Institutes of Health. 2001: NIH Publication No. 01-3305. 2. An International Atherosclerosis Society position paper: global recommendations for the management of dyslipidemia: executive summary, Atherosclerosis. 2014: 232(2):410-413. Performed By: #### 3 016-3, ####[facility] LABCLIA [id number] [address] [place]#### 79596-9 ####[facility] LABCLIA [id number] [address] OF [facility] LABORATORYCLIA [id number] [place] [address] [place] Cholesterol in VLDL [Mass/Vol] 39 mg/dL High <30 [facility] Comment on above: Order Comment: Speci men Type: BLOOD SPECIMENOrdering Facility: [facility] Address: [address] [place] [address] Performed By: #### 3 016-3, ####[facility] LABCLIA [id number] [address]#### 79147-7 ####[facility] LABCLIA [id number] [address] OF [facility] LABORATORYCLIA [id number] [address] [place] Cholesterol non HDL [Mass/Vol] 143 mg/dL High <130 [facility] Comment on above: Order Comment: Speci men Type: BLOOD SPECIMENOrdering Facility: [facility] Address: [address] [place], [place] [address] Result Comment: <130 mg/dL, Optimal 130-159 mg/dL, Near optimal/above optimal 160-189 mg/dL, Borderline high 190-219 mg/dL, High >219 mg/dL, Very high Secondary prevention optimal non HDL Cholesterol levels are recommended to be <100 mg/dL Performed By: #### 3 016-3, ####[facility] LABCLIA [id number] [address] OF [place]#### 06182-6 ####[facility] LABCLIA [id number] [address] STATES OF [facility]AE[facility] LABORATORYCLIA [id number] [place], [place] [address] [place] [address] [place] Cholesterol.total/Ch olesterol in HDL [Mass ratio] 4.97 {ratio} Normal <5.10 [facility] Comment on above: Order Comment: Speci men Type: BLOOD SPECIMENOrdering Facility: [facility] Address: [address] [place] [address] Performed By: #### 3 016-3, 99623-8 ####[facility] LABCLIA [id number] [address] [address] [place]#### 04500-6 ####[facility] LABCLIA [id number] [address] [address] [facility] [place] LABORATORYCLIA [id number] [place] [address] [place] FASTING TIME 12 hrs Normal [facility] Comment on above: Order Comment: Speci men Type: BLOOD SPECIMENOrdering Facility: [facility] Address: [address] [place] [place] [id number] Performed By: #### 3 016-3, ####[facility] LABCLIA [id number] [place] [address] [place]#### 13106-8 ####[facility] LABCLIA [id number] [address] STATES OF [facility] LABORATORYCLIA [id number] [place] [address] [place] Triglyceride [Mass/Vol] 197 mg/dL High <150 [facility] Comment on above: Order Comment: Speci men Type: BLOOD SPECIMENOrdering Facility: [facility] Address: [address] [place] [place] [id number] Result Comment: <150 mg/dL, Normal 150-199 mg/dL, Borderline high 200-499 mg/dL, High >499 mg/dL, Very high Performed By: #### 3 016-3, 74105-1 ####[facility] LABCLIA [id number] [address] [address] [place]#### 58025-4 ####[facility] LABCLIA [id number] [address] [address] [place] AMERICASELECT [facility]ICAL [facility] [place] LABORATORYCLIA [id number] [place] [address] [place] [facility] PSA/PROSTSPECAG SCRNon 02-10 Prostate specific Ag [Mass/Vol] 0.42 ng/mL Normal <2.60 [facility] Comment on above: Order Comment: Speci men Type: BLOOD SPECIMENOrdering Facility: [facility] Address: [address] [place], [place] [address] Result Comment: Tota l PSA test methodology used is the Electrochemiluminescence Immunoassay by [employer]. Total PSA values by differing methodologies cannot be interchanged. Performed By: #### P [id number] ####[facility] LABCLIA [id number] [place] [address] [place] TSH SerPl-aCncon 02-10-2022 TSH Qn 1.220 m[IU]/L Normal 0.270-4.200 [facility] Comment on above: Order Comment: Speci men Type: BLOOD SPECIMENOrdering Facility: [facility] Address: [address] [place] [address] Performed By: #### 3 016-3, 09751-0 ####[facility] LABCLIA [id number] [place] [address] [place]#### 03614-3 ####[facility] LABCLIA [id number] [place] [address] [place] AMERICASELECT MEDICAL [facility] LABORATORYCLIA [id number] [place] [address] [place] URINALYSIS, REFLEX MICROSCOP ICon 02-10-2022 Bilirubin Ql (U) Negative Normal Negative [facility] Comment on above: Order Comment: Speci men Type: URINE SPECIMENOrdering Facility: [facility] Address: [address] [place] [address] Performed By: #### L [id number] ####[facility] LABCLIA [id number] [place] [address] [place] CALCIUM OXALATE CRYSTALS (UA) Few Abnormal None Seen [facility] Comment on above: Order Comment: Speci men Type: URINE SPECIMENOrdering Facility: [facility] Address: [address] [place], [place] [address] Performed By: #### L [id number] ####[facility] LABCLIA [id number] [place] [address] [place] Clarity (Unsp spec) Clear Normal Clear [facility] Comment on above: Order Comment: Speci men Type: URINE SPECIMENOrdering Facility: [facility] Address: [address] [place] [address] Performed By: #### L [id number] ####[facility] LABCLIA [id number] STATES OF [facility] Color (U) Yellow Normal Yellow [facility] Comment on above: Order Comment: Speci men Type: URINE SPECIMENOrdering Facility: [facility] Address: [address] [place], [place] [address] Performed By: #### L [id number] ####[facility] LABCLIA [id number] [place] [address] [place] [facility] Epithelial cells LM.HPF (Urine sed) [#/Area] Few Normal [facility] Comment on above: Order Comment: Speci men Type: URINE SPECIMENOrdering Facility: [facility] Address: [address] [place] [address] Result Comment: Few Performed By: #### L [id number] ####[facility] LABCLIA [id number] [place] [address] [place] Glucose Test strip (U) [Mass/Vol] Negative Normal Negative [facility] Comment on above: Order Comment: Speci men Type: URINE SPECIMENOrdering Facility: [facility] Address: [address] [place], [place] [address] Performed By: #### L [id number] ####[facility] LABCLIA [id number] [address] [id number], [place] [address] [place] Hemoglobin Ql (U) Negative Normal Negative [facility] Comment on above: Order Comment: Speci men Type: URINE SPECIMENOrdering Facility: [facility] Address: [address] [place] [address] Performed By: #### L [id number] ####[facility] LABCLIA [id number] [place] [address] [place] Ketones Ql (U) Negative Normal Negative [facility] Comment on above: Order Comment: Speci men Type: URINE SPECIMENOrdering Facility: [facility] Address: [address] [place] [address] Performed By: #### L [id number] ####[facility] LABCLIA [id number] [place] [address] [place] Leukocyte esterase Test strip Ql (U) 75 Joyce/mL Abnormal Negative [facility] Comment on above: Order Comment: Speci men Type: URINE SPECIMENOrdering Facility: [facility] Address: [address] [place], [place] [address] Performed By: #### L [id number] ####[facility] LABCLIA [id number] [place] [address] [place] Nitrite Ql (U) Negative Normal Negative [facility] Comment on above: Order Comment: Speci men Type: URINE SPECIMENOrdering Facility: [facility] Address: [address] [place], [place] [address] Performed By: #### L [id number] ####[facility] LABCLIA [id number] [place] [address] [place] pH (U) 6.0 [pH] Normal 5.0-8.0 [facility] Comment on above: Order Comment: Speci men Type: URINE SPECIMENOrdering Facility: [facility] Address: [address] [place] [address] Performed By: #### L [id number] ####[facility] LABCLIA [id number] [place] [address] [place] [facility] Protein (U) [Mass/Vol] 1+ Abnormal Negative [facility] Comment on above: Order Comment: Speci men Type: URINE SPECIMENOrdering Facility: [facility] Address: [address] [place] [address] Performed By: #### L [id number] ####[facility] LABIA [id number] [place] [address] [place] RBC LM.HPF (Urine sed) [#/Area] 0-3 /HPF Normal 0-3 /HPF [facility] Comment on above: Order Comment: Speci men Type: URINE SPECIMENOrdering Facility: [facility] Address: [address] [place] [address] Performed By: #### L [id number] ####[facility] LABIA [id number] [address] STATES [facility] Specific gravity (U) [Rel density] 1.037 High 1.005-1.030 [facility] Comment on above: Order Comment: Speci men Type: URINE SPECIMENOrdering Facility: [facility] Address: [address] [place] [address] Performed By: #### L [id number] ####[facility] LABIA [id number] [address] Urobilinogen Ql (U) 1+ Abnormal Negative [facility] Comment on above: Order Comment: Speci men Type: URINE SPECIMENOrdering Facility: [facility] Address: [address] [place] [address] Performed By: #### L [id number] ####[facility] LABIA [id number] [place] [address] [place] WBC LM.HPF (Urine sed) [#/Area] 0-5 /HPF Normal 0-5 /HPF [facility] Comment on above: Order Comment: Speci men Type: URINE SPECIMENOrdering Facility: [facility] Address: [address] [id number] Performed By: #### L [id number] ####[facility] LABCLIA [id number] [address] [place] [place] [address] [place] CNOVon 11-15-2021 CNOV Office [facility] ) -- NEHAL BAIG ([id number]) 1970 M Date Time Provider Department 11/15/21 9:00 AM NATALIA AGUILLON [facility] During your visit today, we recorded the following information about you: Pulse Blood pressure Weight Height 74/minute 128/64 170.6 kg 1.854 m Natalia Aguillon 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 Subjective Nehal Baig is a 51 year old male. CC: routine f/up HPI ENDO/WT: -needs f/up endo wt managmeent Dr. Jorge -needs f/up cuff setter lockstitch Britney Jamison -needs appt with Dr. Man/Agustina-endo wt management team [phone] RESP-lung nodules stable. Repeat ct and OV [...] 2020. This is a workers comp issue-through [facility]/Dr. Cowan. 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 Normal [facility] CNPNohemi 10-27-2021 CNPN Telephone ([facility]) -- NEHAL BAIG ([id number]) 1970 M Date Time Provider Department 10/27/21 BECCA DUQUEMN During your visit today, we recorded the following information about you: MICHEAL Davis 10/27/2021 12:39 PM Signed Called 10/27; left vmail to schedule psych appt with Dr. Nae Man; sent myc msg 10/27 Allergies As of Date: 10/27/2021 (No Known Allergies) Date Reviewed: 09/22/2021 Reviewed by: Jimmy Sharma MD - Fully Assessed Reason for [...] of liver [K76.0] 08/15/2021 Encounter Status:Closed by BECCA DUQUE on 10/27/21 Normal [facility] CNOVon 09-22-2021 CNOV Office Visit ([facility]ULI ) -- NEHAL BAIG ([id number]) 1970 M Date Time Provider Department 09/22/21 11:20 AM JIMMY SHARMA [facility] During your visit today, we recorded the following information about you: Pulse Respiration Blood pressure Weight 73/minute 20/minute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 dyslipidemia: executive summary, Atherosclerosis. 2014: 232(2):410-413. Performed By: #### Natalie DENT, 49124-4 ####[facility] LABCLIA [id number] [place] [address] [place] Cholesterol in VLDL [Mass/Vol] 28 mg/dL Normal <30 [facility] Comment on above: Order Comment: Speci men Type: BLOOD SPECIMENOrdering Facility: [facility] Address: [address] [place] [address] Performed By: #### Natalie DENT, 62512-5 ####[facility] LABCLIA [id number] [place] [address] [place] Cholesterol non HDL [Mass/Vol] 203 mg/dL High <130 [facility] Comment on above: Order Comment: Speci men Type: BLOOD SPECIMENOrdering Facility: [facility] Address: [address] [place] [address] Result Comment: <130 mg/dL, Optimal 130-159 mg/dL, Near optimal/above optimal 160-189 mg/dL, Borderline high 190-219 mg/dL, High >219 mg/dL, Very high Secondary prevention optimal non HDL Cholesterol levels are recommended to be <100 mg/dL Performed By: #### Natalie DENT, 49354-7 ####[facility] LABCLIA [id number] [address] Cholesterol.total/Ch olesterol in HDL [Mass ratio] 6.49 {ratio} High <5.10 [facility] Comment on above: Order Comment: Speci men Type: BLOOD SPECIMENOrdering Facility: [facility] Address: [address] [place] [address] Performed By: #### L IPB, 09322-0 ####[facility]CLIA [id number] [address] OF [facility] FASTING TIME 12. hrs Normal [facility] Comment on above: Order Comment: Speci men Type: BLOOD SPECIMENOrdering Facility: [facility] Address: [address] [place] [address] Performed By: #### L IPB, 22840-1 ####[facility]IA [id number] [address] Triglyceride [Mass/Vol] 140 mg/dL Normal <150 [facility] Comment on above: Order Comment: Speci men Type: BLOOD SPECIMENOrdering Facility: [facility] Address: [address] [place] [address] Result Comment: <150 mg/dL, Normal 150-199 mg/dL, Borderline high 200-499 mg/dL, High >499 mg/dL, Very high Performed By: #### L IPB, 26391-6 ####[facility]IA [id number] [address] [place] PSA/PROSTSPECAG SCRNon 07-29 Prostate specific Ag [Mass/Vol] 0.41 ng/mL Normal <2.60 [facility] Comment on above: Order Comment: Speci men Type: BLOOD SPECIMENOrdering Facility: [facility] Address: [address] [place] [address] Result Comment: Tota l PSA test methodology used is the Electrochemiluminescence Immunoassay by [employer]. Total PSA values by differing methodologies cannot be interchanged. Performed By: #### P SAS1 ####[facility] LABCLIA [id number] [place] [address] [place] TSH SerPl-aCncon 07-29-2021 TSH Qn 4.060 m[IU]/L Normal 0.270-4.200 [facility] Comment on above: Order Comment: Speci men Type: BLOOD SPECIMENOrdering Facility: [facility] Address: [address] [place] [address] Performed By: #### 3 016-3 ####[facility] LABCLIA [id number] [place] [address] [place] URINALYSIS, REFLEX MICROSCOP ICon 07-29-2021 Bilirubin Ql (U) Negative Normal Negative [facility] Comment on above: Order Comment: Speci men Type: URINE SPECIMEN [facility] Address: [address] [place] [address] Performed By: #### L [id number] #### [facility] CLIA [id number] [address] [place] [address] [place] Clarity (Unsp spec) Clear Normal Clear [facility] Comment on above: Order Comment: Speci men Type: URINE SPECIMEN [facility] Address: [address] [place] [address] Performed By: #### L [id number] #### [facility] CLIA [id number] [address] [place] [address] [place] Color (U) Yellow Normal Yellow [facility] Comment on above: Order Comment: Speci men Type: URINE SPECIMEN [facility] Address: [address] [place], [place] [address] Performed By: #### L [id number] #### [facility] CLIA [id number] [address] [place] [address] [place] Glucose Test strip (U) [Mass/Vol] Negative Normal Negative [facility] Comment on above: Order Comment: Speci men Type: URINE SPECIMEN [facility] Address: [address] [place] [address] Performed By: #### L [id number] #### [facility] CLIA [id number] [address] [place] [address] [place] Hemoglobin Ql (U) Negative Normal Negative [facility] Comment on above: Order Comment: Speci men Type: URINE SPECIMEN [facility] Address: [address] [place] [address] Performed By: #### L [id number] #### [facility] CLIA [id number] [address] [place] [address] [place] Ketones Ql (U) Negative Normal Negative [facility] Comment on above: Order Comment: Speci men Type: URINE SPECIMEN [facility] Address: [address] [place] [address] Performed By: #### L [id number] #### [facility] CLIA [id number] [address] [place] [address] [place] Leukocyte esterase Test strip Ql (U) Negative Normal Negative [facility] Comment on above: Order Comment: Speci men Type: URINE SPECIMEN [facility] Address: [address] [place] [address] Performed By: #### L [id number] #### [facility] CLIA [id number] [address] [place] [address] [place] Nitrite Ql (U) Negative Normal Negative [facility] Comment on above: Order Comment: Speci men Type: URINE SPECIMEN [facility] Address: [address] [place] [address] Performed By: #### L [id number] #### [facility] CLIA [id number] [address] [place] [address] [place] pH (U) 5.5 [pH] Normal 5.0-8.0 [facility] Comment on above: Order Comment: Speci men Type: URINE SPECIMEN [facility] Address: [address] [place] [address] Performed By: #### L [id number] #### [facility] CLIA [id number] [address] [place], [place] [address] [place] Protein (U) [Mass/Vol] Negative Normal Negative [facility] Comment on above: Order Comment: Speci men Type: URINE SPECIMEN [facility] Address: [address] [place] [address] Performed By: #### L [id number] #### [facility] CLIA [id number] [address] [place] [address] [place] Specific gravity (U) [Rel density] 1.025 Normal 1.005-1.030 [facility] Comment on above: Order Comment: Speci men Type: URINE SPECIMEN [facility] Address: [address] [place] [address] Performed By: #### L [id number] #### [facility] CLIA [id number] [address] [place] [address] [place] Urobilinogen Ql (U) 0.2 EU/dL Normal 0.2-1.0 EU/dL [facility] Comment on above: Order Comment: Speci men Type: URINE SPECIMEN [facility] Address: [address] [place] [address] Performed By: #### L [id number] #### [facility] CLIA [id number] [address] [place], [place] [address] [place] VITAMIN D 25 HYDROXYon 07-29 25-hydroxyvitamin D3 [Mass/Vol] 29.1 ng/mL Low 31.0-80.0 [facility] Comment on above: Order Comment: Speci men Type: BLOOD SPECIMENOrdering Facility: [facility] Address: [address] [place] [address] Result Comment: Clas sification of 25 [place] Vitamin D status: Deficiency/Insufficiency: < or = 30 ng/ml. Sufficiency/Optimal Levels: 31-80 ng/mL Toxicity: > 100 ng/mL. Test performed by chemiluminescent immunoassay. Performed By: #### V ITD ####[facility] LABCLIA [id number] [place] [address] [place] HISTORY PHYSICALon HISTORY PHYSICAL HNO ID: [id number] Author: Prisca Van PA-C Service: ? Author Type: Physician Diffusion Operator Type: HANDP Filed: 07/26/2021 1:52 PM Note Text: [facility] This is a virtual visit. It required patient-provider interaction for the medical decision making as documented below. Patient has been identified by name and date of : Yes Reason for call: PACC visit Accompanied by: Self Patient name: Nehal Baig Scheduled Surgery: colonoscopy 07/31/2021 at [facility] CHIEF COMPLAINT: Patient presents with: Outpatient Colonoscopy [...] fevers. Neuro: No history of TIA's, stroke, MARKETING DEVELOPMENT MANAGER tumor, impaired sensorium, hemiplegia, paraplegia or quadraplegia. No neurological symptoms or problems. Respiratory: No history of current cough or dyspnea, or pneumonia in the past 6 weeks. +asthma-uses Flovent daily, albuterol 3-5 times/week +JACOBY- BiPAP nightly +lung nodules Cardiovascular: No history of angina, CHF, AR, cardiac surgery or stents. Denies rest pain, [...] carotid puls (more content not included)... Normal [facility] CNOVon 07-25-2021 [facility] -- NEHAL BAIG ([id number]) 1970 M Date Time Provider Department 07/25/21 9:20 AM NATALIA AGUILLON [facility] During your visit today, we recorded the following information about you: Pulse Blood pressure Weight Height 88/minute 136/78 182.3 kg 1.854 m Natalia Aguillon APRN.CNP 07/25/2021 5:32 PM Signed This [...] management? we will discuss further at follow-up Natalia Aguillon APRN.LEODAN Aguillon APRN.LEODAN 07/25/2021 9:43 AM Signed Bowel Preparation Instructions for: Golytely, Nulytely, Trilyte or Coly (more content not included)... Normal [facility] Ramez 07-25-2021 RAKESH Telephone ([facility]) -- NEHAL BAIG ([id number]) 1970 M Date Time Provider Department 07/25/21 NATALIA AGUILLON [facility] During your visit today, we recorded the following information about you: Beatriz Cowan 07/25/2021 11:22 AM Signed [facility] [place] states the Golytely is on backorder. They have the Newlytely in stock. Is it OK to substitute? Please advise. [phone]. Beatriz Cowan July 25, 2021 11:22 AM Natalia Aguillon APRN.CNP 07/25/2021 12:05 PM Signed Called [facility] -pt did not schedule colonoscopy yet -should not fill until schedules and provider performing procedure confirms the prep. Nae Berry, WILLI 07/28/2021 11:42 AM Signed Pharmacy called back; pt is scheduled for Saturday. Natalia out of office; Reviewed with Dr. Bose. Per him, Newlytely is an adequated substitution. Pharmacy advise. Allergies As of Date: 07/25/2021 (No Known Allergies) Date Reviewed: 07/25/2021 Reviewed by: Natalia Aguillon APRN.LEODAN - Fully Assessed Reason for [...] 03/10/2021 Wheezing [R06.2] 03/10/2021 Encounter Status:Closed by NATALIA AGUILLON on 07/25/21 Normal [facility] CT CHEST WO IVCONon 02-14-20 Radiology Result ACTIONABLE Abnormal [facility] XR Hand - bilateral PA and L ateral and Obliqueon 12-12-2020 IMPRESSION: Mild degenerative changes, no acute findings. Adjusto Writer Operator: GREGORY Transcribe Date/Time: Dec 12 2020 3:47P Dictated by : DAJA GOLDSTEIN MD This examination was interpreted and the report reviewed and electronically signed by: DAJA GOLDSTEIN MD on Dec 12 2020 3:47PM [facility] DIVISION OF RADIOLOGY * * [...] significant abnormality. DIVISION OF RADIOLOGY Provider, Kev Pena - 12/12/2020 * * *Final Report* * * DATE OF EXAM: Dec 12 2020 1:52PM JOVANY [id number] - XR HAND 3V PA/LAT/OBL JEMIMA [...] IMPRESSION: Mild degenerative changes, no acute findings. Adjusto Writer Operator: PSCVerna Transcribe Date/Time: Dec 12 2020 3:47P Dictated by : DAJA GOLDSTEIN MD This examination was interpreted and the report reviewed and electronically signed by: DAJA GOLDSTEIN MD on Dec 12 2020 3:47PM EST [facility] Radiology Study observation (narrative) [facility] XR Hand - bilateral PA and L ateral and ObliqueOrdered By: Ccf Provider on 12-12-2020 [facility] Basic Metab w/rfx MGon 08-02 (cont.) Normal [facility] Comment on above: Result Comment: Aver age GFR for 40-49 years old: 99 mL/min/1.73sq m Chronic Kidney Disease: <60 mL/min/1.73sq m Kidney failure: <15 mL/min/1.73sq m eGFR calculated using average adult body mass. Additional eGFR calculator available at: http://www.NextNine.[employer]/multiple_crcl_2011.htm Performed By: #### C BC, BMPX ####[address] [place] [address] [facility] Director: Nate Stafford MD Anion gap [Moles/Vol] 11 mmol/L Normal 9-17 [facility] Comment on above: Performed By: #### C BC, BMPX ####[facility] [address] [place], [place] [phone] Director: Nate Stafford MD Calcium [Mass/Vol] 8.5 mg/dL Low 8.6-10.4 [facility] Comment on above: Performed By: #### C BC, BMPX ####[facility] [address] [place], [place] [phone] Director: Nate Stafford MD Chloride [Moles/Vol] 101 mmol/L Normal 98-107 [facility] Comment on above: Performed By: #### C BC, BMPX ####[facility] [address] [place], [place] [phone] Director: Nate Stafford MD CO2 [Moles/Vol] 23 mmol/L Normal 20-31 [facility] Comment on above: Performed By: #### C BC, BMPX ####[facility] [address] [place], [place] [phone] Director: Nate Stafford MD Creatinine [Mass/Vol] 0.62 mg/dL Low 0.70-1.20 [facility] Comment on above: Performed By: #### C BC, BMPX ####[facility] [address] [place], [place] [phone] Director: Nate Stafford MD GFR, Amer >60 Normal >60 [facility] Comment on above: Performed By: #### C BC, BMPX ####[facility] [address] [place], [place] [phone] Director: Nate Stafford MD GFR,non Amer >60 Normal >60 [facility] Comment on above: Performed By: #### C BC, BMPX ####[facility] [address] [place], [place] [phone] Director: Nate Stafford MD Glucose [Mass/Vol] 120 mg/dL High 70-99 [facility] Comment on above: Performed By: #### C BC, BMPX ####[facility] [address] [place], [place] [phone] Director: Nate Stafford MD Potassium [Moles/Vol] 4.3 mmol/L Normal 3.7-5.3 [facility] Comment on above: Performed By: #### C BC, BMPX ####[facility] [address] [place], [place] [phone] Director: Nate Stafford MD Sodium [Moles/Vol] 135 mmol/L Normal 135-144 [facility] Comment on above: Performed By: #### C BC, BMPX ####[facility] [address] [place], [place] [phone] Director: Nate Stafford MD Urea nitrogen [Mass/Vol] 14 mg/dL Normal 6-20 [facility] Comment on above: Performed By: #### C BC, BMPX ####[facility] [address] [place], [place] [phone] Director: Nate Stafford MD BUN/CRE Ratio NOT REPORTED Normal 9-20 [facility] Comment on above: Performed By: #### C BC, BMPX ####[facility] [address] [place], [place] [phone] Director: Nate Stafford MD Staging: NOT REPORTED Normal [facility] Comment on above: Performed By: #### C BC, BMPX ####[facility] [address] [place], [place] [phone] Director: Nate Stafford MD Basic Metabolic Panel w/ Ref johnny to MGOrdered By: Halina Pathak on 08-02-2020 Anion gap [Moles/Vol] 11 mmol/L 9 - 17 mmol/L [facility] Phone: Calcium [Mass/Vol] 8.5 mg/dL Low 8.6 - 10. 4 mg/dL [facility] Phone: Chloride [Moles/Vol] 101 mmol/L 98 - 10 7 mmol/L [facility] Phone: CO2 [Moles/Vol] 23 mmol/L 20 - 31 mmol/L [facility] Phone: Creatinine [Mass/Vol] 0.62 mg/dL Low 0.70 - 1.20 mg/dL [facility] Phone: GFR >60 >60 mL/min LiveLoop Phone: GFR Non- >60 >60 mL/min Branch[facility] Phone: GFR/1.73 sq M.predicted MDRD (S/P/Bld) [Vol rate/Area] Branch[facility] Phone: Comment on above: Average GFR for 40-4 9 years old: 99 mL/min/1.73sq m Chronic Kidney Disease: <60 mL/min/1.73sq m Kidney failure: <15 mL/min/1.73sq m eGFR calculated using average adult body mass. Additional eGFR calculator available at: http://www.NextNine.[employer]/multiple_crcl_2012.htm GFR/1.73 sq M.predicted MDRD (S/P/Bld) [Vol rate/Area] NOT REPORTED [facility] Phone: Glucose [Mass/Vol] 120 mg/dL High 70 - 99 mg/dL [facility] Phone: Interpretation and review of laboratory results Abnormal [facility] Phone: Potassium [Moles/Vol] 4.3 mmol/L 3.7 - 5.3 mmol/L [facility] Phone: Sodium [Moles/Vol] 135 mmol/L 135 - 144 mmol/L [facility] Phone: Urea nitrogen (BldV) [Mass/Vol] 14 mg/dL 6 - 20 mg/dL [facility] Phone: Urea nitrogen/Creatinine (Bld) [Mass ratio] NOT REPORTED Branch[facility] Phone: CBCon 08-02-2020 Erythrocyte distribution width (RBC) [Ratio] 13.0 % Normal 11.8-14.4 [facility] Comment on above: Performed By: #### C BC, BMPX ####[facility] [address] [place], [place] [phone] Director: Nate Stafford MD Hematocrit (Bld) [Volume fraction] 41.8 % Normal 40.7-50.3 [facility] Comment on above: Performed By: #### C BC, BMPX ####[facility] [address] [place], [place] [phone] Director: Nate Stafford MD Hemoglobin (Bld) [Mass/Vol] 13.8 g/dL Normal 13.0-17.0 [facility] Comment on above: Performed By: #### C BC, BMPX ####[facility] [address] [place], [place] [phone] Director: Nate Stafford MD MCH (RBC) [Entitic mass] 29.3 pg Normal 25.2-33.5 [facility] Comment on above: Performed By: #### C BC, BMPX ####[facility] [address] [place], [place] [phone] Director: Nate Stafford MD MCHC (RBC) [Mass/Vol] 33.0 g/dL Normal 28.4-34.8 [facility] Comment on above: Performed By: #### C BC, BMPX ####[facility] [address] [place], [place] [phone] Director: Nate Stafford MD MCV (RBC) [Entitic vol] 88.7 fL Normal 82.6-102.9 [facility] Comment on above: Performed By: #### C BC, BMPX ####[facility] [address] [place], [place] [phone] Director: Nate Stafford MD NRBC Automated 0.0 per 100 WBC Normal 0.0 [facility] Comment on above: Performed By: #### C BC, BMPX ####[facility] [address] [place], [place] [phone] Director: Nate Stafford MD Platelet mean volume (Bld) [Entitic vol] 10.9 fL Normal 8.1-13.5 [facility] Comment on above: Performed By: #### C BC, BMPX ####[facility] [address] [place] [phone] Lab Director: Nate Stafford MD Platelets (Bld) [#/Vol] 221 10*3/uL Normal 138-453 [facility] Comment on above: Performed By: #### C BC, BMPX ####[address] [phone] Director: Nate Stafford MD RBC (Bld) [#/Vol] 4.71 10*6/uL Normal 4.21-5.77 [facility] Comment on above: Performed By: #### C BC, BMPX ####[facility] [address] [place], [place] [phone] Director: Nate Stafford MD WBC (Bld) [#/Vol] 10.6 10*3/uL Normal 3.5-11.3 [facility] Comment on above: Performed By: #### C BC, BMPX ####[facility] [address] [place], [place] [phone] Director: Nate Stafford MD CBCOrdered By: Halina Pathak on 08-02-2020 Hematocrit (Bld) [Volume fraction] 41.8 % 40.7 - 50.3 % [facility] Phone: Hemoglobin.gastroint estinal spec 1 Ql (Stl) 13.8 g/dL 13.0 - 17.0 g/dL [facility] Phone: MCH (RBC) [Entitic mass] 29.3 pg 25.2 - 33.5 pg [facility] Phone: MCHC (RBC) [Mass/Vol] 33.0 g/dL 28.4 - 34.8 g/dL [facility] Phone: MCV (RBC) [Entitic vol] 88.7 fL 82.6 - 102.9 fL [facility] Phone: NRBC Automated 0.0 0.0 per 100 WBC [facility] Phone: Platelet distribution width (Bld) [Ratio] 13.0 % 11.8 - 14.4 % [facility] Phone: Platelet mean volume (Bld) [Entitic vol] 10.9 fL 8.1 - 13.5 fL [facility] Phone: Platelets (Bld) [#/Vol] 221 10*3/uL [facility] Phone: RBC (Bld) [#/Vol] 4.71 10*6/uL 4.21 - 5.7 7 m/uL [facility] Phone: WBC (Bld) [#/Vol] 10.6 10*3/uL [facility] Phone: Trauma Profileon 08-02-2020 (cont.) Normal [facility] Comment on above: Result Comment: Aver age GFR for 40-49 years old: 99 mL/min/1.73sq m Chronic Kidney Disease: <60 mL/min/1.73sq m Kidney failure: <15 mL/min/1.73sq m eGFR calculated using average adult body mass. Additional eGFR calculator available at: http://www.NextNine.[employer]/multiple_crcl_2012.htm Performed By: #### E RTBERNIE TROPI ####[facility] [address] [place], [place] [phone] Director: Nate Stafford MD Anion gap [Moles/Vol] 10 mmol/L Normal 9-17 [facility] Comment on above: Performed By: #### E RTBERNIE TROPI ####[facility] [address] [place], [place] [phone] Director: Nate Stafford MD Chloride [Moles/Vol] 100 mmol/L Normal 98-107 [facility] Comment on above: Performed By: #### E RTBERNIE TROPI ####[facility] [address] [place], [place] [phone] Director: Nate Stafford MD CO2 [Moles/Vol] 24 mmol/L Normal 20-31 [facility] Comment on above: Performed By: #### E RTBERNIE TROPI ####[facility] [address] [place], [place] [phone] Director: Nate Stafford MD Creatinine [Mass/Vol] 0.71 mg/dL Normal 0.70-1.20 [facility] Comment on above: Performed By: #### E RTPF TROPI ####[facility] [address] [place], [place] [phone] Director: Nate Stafford MD Ethanol [Mass/Vol] mg/dL Normal <10 [facility] Comment on above: Performed By: #### E RTPF, TROPI ####[facility] [address] [place], [place] [phone] Director: Nate Stafford MD Ethanol percent <0.010 Normal <0.010 [facility] Comment on above: Performed By: #### E RTPF, TROPI ####[facility] [address] [place] [address] Lab Director: Nate Stafford MD GFR, Amer >60 Normal >60 [facility] Comment on above: Performed By: #### E RTPF, TROPI ####[facility] [address] [place], [place] [phone] Director: Nate Stafford MD GFR,non Amer >60 Normal >60 [facility] Comment on above: Performed By: #### E RTPF, TROPI ####[facility] [address] [place] [address] Lab Director: Nate Stafford MD Glucose [Mass/Vol] 109 mg/dL High 70-99 [facility] Comment on above: Performed By: #### E RTPF, TROPI ####[facility] [address] [place] [address] Lab Director: Nate Stafford MD Potassium [Moles/Vol] 4.2 mmol/L Normal 3.7-5.3 [facility] Comment on above: Performed By: #### E RTPF, TROPI ####[facility] [address] [place] [address] Lab Director: Nate Stafford MD Sodium [Moles/Vol] 134 mmol/L Low 135-144 [facility] Comment on above: Performed By: #### E RTPF, TROPI ####[facility] [address] [place] [address] Lab Director: Nate Satfford MD Urea nitrogen [Mass/Vol] 15 mg/dL Normal 6-20 [facility] Comment on above: Performed By: #### E RTPF, TROPI ####[facility] [address] [place] [address] lab Director: Nate Stafford MD Troponinon 08-02-2020 Troponin, High Sens 6 ng/L Normal 0-22 [facility] Comment on above: Result Comment: High Sensitivity Troponin values cannot be compared with other Troponin methodologies. Patients with high levels of Biotin oral intake (i.e >5mg/day) may have falsely decreased Troponin levels. Samples collected within 8 hours of biotin intake may require additional information for diagnosis. Performed By: #### E RTPF, TROPI ####[facility] [place], [place] [phone] lab Director: Nate Stafford MD Type + Screenon 08-02-2020 Type + Screen Sample Expiration 08/04/2020,2359 Arm Band Number BE [id number] ABO/Rh(D) A NEGATIVE Antibody Screen NEGATIVE Normal [facility] Comment on above: Performed By: #### T YS ####[facility] [address] [place] [address] lab Director: Nate Stafford MD CT CERVICAL [...] Johnny Smalls MD 08/01/20 Final result Normal [facility] CT CERVICAL SPINE WO CONTRAS TOrdered By: Ronnie Lund on 08-01-2020 C6-7 cervical spondy losis and degenerative disc disease. Evidence of paracervical spasm. No acute bony abnormalities are noted [facility] Phone: EXAMINATION: CT OF T HE CERVICAL [...] intact. The visualized lung apices are clear. [facility] Phone: Francisco, Mhpn Incoming R adiant Results From [facility]/[employer] - 08/01/2020 7:04 PM EDT EXAMINATION: CT [...] spasm. No acute bony abnormalities are noted [facility] Phone: CT CHEST ABDOMEN PELVIS W CO [...] Elizabeth Shoemaker MD 08/01/20 Final result Normal [facility] CT CHEST ABDOMEN PELVIS W CO [...] to Lung-RADS guidelines. Reference: Radiology. 2017; 284(1):228-43. [employer] Work Phone: EXAMINATION: CT OF T HE [...] hernia. Bones/Soft Tissues: No acute osseous abnormality. [employer] Work Phone: Francisco, Mhpn Incoming R adiant Results From [facility] - 08/01/2020 7:19 PM EDT EXAMINATION: CT [...] to Lung-RADS guidelines. Reference: Radiology. 2017; 284(1):228-43. [facility] Phone: CT HEAD WO CONTRASTon 2020 CT [...] Jarek Fernández MD 08/01/20 Final result Normal [facility] CT Head WO ContrastOrdered B y: Ronnie Lund on 08-01-2020 1. No acute intracra nial abnormality. [facility] Phone: EXAMINATION: CT OF T HE HEAD [...] clear. SOFT TISSUES/SKULL: The calvarium is intact. [facility] Phone: Francisco, Mhpn Incoming R adiant Results From [facility] - 08/01/2020 7:01 PM EDT EXAMINATION: CT [...] intact. IMPRESSION: 1. No acute intracranial abnormality. [facility] Phone: CT LUMBAR SPINE TRAUMA RECON STRUCTIONon [...] Johnny Smalls MD 08/01/20 Final result Normal [facility] CT THORACIC SPINE TRAUMA REC ONSTRUCTIONon [...] Johnny Smalls MD 08/01/20 Final result Normal [facility] Drug Scr, Abuse, Uron 2020 Amphetamine(s),Ur Negative Normal NEG [facility] Comment on above: Result Comment: (Positive cutoff 1000 ng/mL) Performed By: #### U AMIC, LOUIS #### [facility] [address] [place], [place] [phone] Outpatient Facility Physical Therapist: Nate Stafford MD Barbiturate(s),Ur Negative Normal NEG [facility] Comment on above: Result Comment: (Positive cutoff 200 ng/mL) Performed By: #### U AMIC, LOUIS #### [facility] [address] [place] [address] Outpatient Facility Physical Therapist: Nate Stafford MD Benzodiazepine(s) Negative Normal NEG [facility] Comment on above: Result Comment: (Positive cutoff 200 ng/mL) Performed By: #### U AMIC, LOUIS #### [facility] [address] [place] [address] Outpatient Facility Physical Therapist: Nate Stafford MD Cannabinoid(s),Ur Negative Normal NEG [facility] Comment on above: Result Comment: (Positive cutoff 50 ng/mL) Performed By: #### U AMIC, LOUIS #### [facility] [address] [place] [address] Outpatient Facility Physical Therapist: Nate Stafford MD Cocaine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 reviewed and electronically signed by: REY CUEVAS MD on Dec 22 2019 3:29PM [facility] DIVISION OF RADIOLOGY * * [...] no nam erosions. DIVISION OF RADIOLOGY Provider, Kev Brown [facility] - 12/22/2019 * * *Final Report* [...] erosions. IMPRESSION IMPRESSION: No acute radiographic findings. Adjusto Writer Operator: PSCB Transcribe Date/Time: Dec 22 2019 3:28P Dictated by : REY CUEVAS MD This examination was interpreted and the report reviewed and electronically signed by: REY CUEVAS MD on Dec 22 2019 3:29PM EST [facility] Radiology Study observation (narrative) [facility] XR Shoulder - left 2 ViewsOr dered By: Ccf Provider on 12-22-2019 [facility] XR SHOULDER GENERAL 3V OR MO RE AP/TRUE AP/OTHER LTon 12-17-2019 [facility] Vital Signs Date Time Vital Sign Value Performing Clinician Facility 06-11-2023 10:49-0400 Body height 185.42 cm [facility] 06-11-2023 10:49-0400 Body mass index (BMI) [Ratio] 35.4 kg/m2 [facility] 06-11-2023 10:49-0400 Body weight 122.01 kg [facility] 04-11-2023 09:00-0500 Body height 180.97 cm [employer] Other [facility] Other 04-11-2023 09:00-0500 Body mass index (BMI) [Ratio] 50.55 kg/m2 [employer] Other [facility] Other 04-11-2023 09:00-0500 Body weight 165.56 kg [employer] Other [employer] Other 02-04-2023 15:00-0500 Body height 180.97 cm Kandis Scally Other [employer] Other 02-04-2023 15:00-0500 Body mass index (BMI) [Ratio] 53.38 kg/m2 Kandis Scally Other [facility] Other 02-04-2023 15:00-0500 Body weight 174.86 kg Kandis Scally Other [employer] Other 02-04-2023 15:00-0500 Diastolic blood pressure 73 mm[Hg] Kandis Scally Other [employer] Other 02-04-2023 15:00-0500 Respiratory rate 20 /min Kandis Scally Other [facility] Other 02-04-2023 15:00-0500 SaO2% (BldA) [Mass fraction] 96 % Kandis Scally Other [employer] Other 02-04-2023 15:00-0500 Systolic blood pressure 124 mm[Hg] Kandis Amado Other [facility] Other 01-17-2023 08:40-0400 Body height 182.88 cm [employer] Other [facility] Other 01-17-2023 08:40-0400 Body mass index (BMI) [Ratio] 51.67 kg/m2 [employer] Other [facility] Other 01-17-2023 08:40-0400 Body weight 172.82 kg [employer] Other [facility] Other 12-16-2022 09:40-0400 Body height 182.88 cm Kelly Kassidy Other [employer] Other 12-16-2022 09:40-0400 Body mass index (BMI) [Ratio] 52.48 kg/m2 Kelly Yi Other [employer] Other 12-16-2022 09:40-0400 Body temperature 99.4 [degF] Kelly Kassidy Other [employer] Other 12-16-2022 09:40-0400 Body weight 175.54 kg Kelly Kassidy Other [employer] Other 12-16-2022 09:40-0400 Diastolic blood pressure 88 mm[Hg] Kelly Yi Other [employer] Other 12-16-2022 09:40-0400 Respiratory rate 18 /min Kelly Yi Other [employer] Other 12-16-2022 09:40-0400 SaO2% (BldA) [Mass fraction] 97 % Kelly Yi Other [employer] [facility] [employer] Other 12-16-2022 09:40-0400 Systolic blood pressure 148 mm[Hg] Kelly Yi Other [facility] [employer] Other 05-21-2022 17:23-0500 Body height 185.4 cm Natalia Aguillon SECURITY ASSURANCE ANALYST.AUTOMATIC BRINE MIXER OPERATOR Work Phone: [facility] 05-21-2022 17:23-0500 Body weight 180.53 kg Natalia Aguillon APRN.AUTOMATIC BRINE MIXER OPERATOR Work Phone: [facility] 05-21-2022 17:23-0500 Diastolic blood pressure 67 mm[Hg] Natalia Aguillon APRN.AUTOMATIC BRINE MIXER OPERATOR Work Phone: [facility] 05-21-2022 17:23-0500 Heart rate 89 /min Natalia Aguillon SECURITY ASSURANCE ANALYST.AUTOMATIC BRINE MIXER OPERATOR Work Phone: [facility] 05-21-2022 17:23-0500 SaO2% (BldA) [Mass fraction] 96 % Natalia Aguillon APRN.AUTOMATIC BRINE MIXER OPERATOR Work Phone: [facility] 05-21-2022 17:23-0500 Systolic blood pressure 133 mm[Hg] Natalia Aguillon SECURITY ASSURANCE ANALYST.AUTOMATIC BRINE MIXER OPERATOR Work Phone: [facility] 02-15-2022 14:06-0500 Body weight 177.81 kg Natalia Aguillon SECURITY ASSURANCE ANALYST.AUTOMATIC BRINE MIXER OPERATOR Work Phone: [facility] 02-15-2022 14:06-0500 Diastolic blood pressure 82 mm[Hg] Natalia Aguillon SECURITY ASSURANCE ANALYST.AUTOMATIC BRINE MIXER OPERATOR Work Phone: [facility] 02-15-2022 14:06-0500 Heart rate 72 /min Natalia Aguillon SECURITY ASSURANCE ANALYST.AUTOMATIC BRINE MIXER OPERATOR Work Phone: [facility] 02-15-2022 14:06-0500 SaO2% (BldA) [Mass fraction] 96 % Natalia Aguillon EZE.AUTOMATIC BRINE MIXER OPERATOR Work Phone: [facility] 02-15-2022 14:06-0500 Systolic blood pressure 147 mm[Hg] Natalia Aguillon SECURITY ASSURANCE ANALYST.AUTOMATIC BRINE MIXER OPERATOR Work Phone: [facility] 11-15-2021 09:04-0400 Body height 185.4 cm Natalia Aguillon EZE.AUTOMATIC BRINE MIXER OPERATOR Work Phone: [facility] 11-15-2021 09:04-0400 Body weight 170.55 kg Natalia Aguillon EZE.AUTOMATIC BRINE MIXER OPERATOR Work Phone: [facility] 11-15-2021 09:04-0400 Diastolic blood pressure 64 mm[Hg] Natalia Aguillon EZE.AUTOMATIC BRINE MIXER OPERATOR Work Phone: [facility] 11-15-2021 09:04-0400 Heart rate 74 /min Natalia Aguillon EZE.AUTOMATIC BRINE MIXER OPERATOR Work Phone: [facility] 11-15-2021 09:04-0400 SaO2% (BldA) [Mass fraction] 96 % Natalia Aguillon EZE.AUTOMATIC BRINE MIXER OPERATOR Work Phone: [facility] 11-15-2021 09:04-0400 Systolic blood pressure 128 mm[Hg] Natalia Aguillon EZE.AUTOMATIC BRINE MIXER OPERATOR Work Phone: [facility] 08-30-2021 08:43-0400 Body height 185.[address] [facility] 08-30-2021 08:43-0400 Body weight 177.[address] [facility] 08-23-2021 14:35-0400 Blood Pressure Location Huan Cowan [facility] 08-23-2021 14:35-0400 Diastolic blood pressure 73 mm[Hg] Huan Cowan [facility] 08-23-2021 14:35-0400 Heart rate 86 /min Huan Cowan [facility] 08-23-2021 14:35-0400 Respiratory rate 19 /min Huan Cowan [facility] 08-23-2021 14:35-0400 SaO2% (BldA) [Mass fraction] 95 % Huan Cowan [facility] 08-23-2021 14:35-0400 Systolic blood pressure 104 mm[Hg] Huan Cowan [facility] 08-23-2021 13:35-0400 Blood Pressure Location Huan Cowan [facility] 08-23-2021 13:35-0400 Diastolic blood pressure 68 mm[Hg] Huan Cowan [facility] 08-23-2021 13:35-0400 Systolic blood pressure 109 mm[Hg] Huan Cowan [facility] 08-23-2021 12:39-0400 Blood Pressure Location Huan Cowan [facility] 08-23-2021 12:39-0400 Diastolic blood pressure 60 mm[Hg] Huan Cowan [facility] 08-23-2021 12:39-0400 Heart rate 87 /min Huan Cowan [facility] 08-23-2021 12:39-0400 Respiratory rate 18 /min Huan Cowan [facility] 08-23-2021 12:39-0400 SaO2% (BldA) [Mass fraction] 95 % Huan Cowan [facility] 08-23-2021 12:39-0400 Systolic blood pressure 96 mm[Hg] Huan Cowan [facility] 08-23-2021 11:25-0400 Body temperature 97.7 [degF] Huan Cowan [facility] 08-23-2021 11:25-0400 Heart rate 73 /min Huan Cowan [facility] 08-23-2021 11:25-0400 Mean blood pressure 84 mm[Hg] Huan Cowan [facility] 08-23-2021 11:25-0400 Respiratory rate 20 /min Huan Cowan [facility] 08-23-2021 11:25-0400 SaO2% (BldA) [Mass fraction] 96 % Huan Cowan [facility] 08-23-2021 11:20-0400 Body temperature 97.34 [degF] Huan Cowan [facility] 08-23-2021 11:20-0400 Respiratory rate 14 /min Huan Cowan [facility] 08-23-2021 11:10-0400 Respiratory rate 16 /min Huan Cowan [facility] 08-23-2021 11:05-0400 Respiratory rate 16 /min Huan Cowan [facility] 08-23-2021 10:51-0400 Body temperature 97.34 [degF] Huan Cowan [facility] 08-23-2021 05:51-0400 Mean blood pressure 101 mm[Hg] Huan Cowan [facility] 08-23-2021 05:51-0400 Heart rate 78 /min Huan Cowan [facility] 08-23-2021 05:48-0400 Body temperature 98.24 [degF] Huan Cowan [facility] 08-23-2021 05:48-0400 Mean blood pressure 96 mm[Hg] Huan Cowan [facility] 08-15-2021 13:00-0400 Body height 182.3 cm Anh Howard MD Work Phone: [facility] 08-15-2021 13:00-0400 Body weight 177.81 kg Anh Howard MD Work Phone: [facility] 08-15-2021 13:00-0400 Diastolic blood pressure 70 mm[Hg] Anh Howard MD Work Phone: [facility] 08-15-2021 13:00-0400 Heart rate 67 /min Anh Howard MD Work Phone: [facility] 08-15-2021 13:00-0400 Respiratory rate 16 /min Anh Howard MD Work Phone: [facility] 08-15-2021 13:00-0400 SaO2% (BldA) [Mass fraction] 96 % Anh Howard MD Work Phone: [facility] 08-15-2021 13:00-0400 Systolic blood pressure 122 mm[Hg] Anh Howard MD Work Phone: [facility] 08-10-2021 09:30-0400 Body height 185.4 cm Natalia Aguillon APRN.AUTOMATIC BRINE MIXER OPERATOR Work Phone: [facility] 08-10-2021 09:30-0400 Body weight 179.62 kg Natalia Aguillon APRN.AUTOMATIC BRINE MIXER OPERATOR Work Phone: [facility] 08-10-2021 09:30-0400 Diastolic blood pressure 77 mm[Hg] Natalia Aguillon SECURITY ASSURANCE ANALYST.AUTOMATIC BRINE MIXER OPERATOR Work Phone: [facility] 08-10-2021 09:30-0400 Heart rate 73 /min Natalia Aguillon SECURITY ASSURANCE ANALYST.AUTOMATIC BRINE MIXER OPERATOR Work Phone: [facility] 08-10-2021 09:30-0400 SaO2% (BldA) [Mass fraction] 98 % Natalia Aguillon SECURITY ASSURANCE ANALYST.AUTOMATIC BRINE MIXER OPERATOR Work Phone: [facility] 08-10-2021 09:30-0400 Systolic blood pressure 127 mm[Hg] Natalia Aguillon SECURITY ASSURANCE ANALYST.AUTOMATIC BRINE MIXER OPERATOR Work Phone: [facility] 08-08-2021 09:26-0400 Blood Pressure Location Huan Cowan [facility] 08-08-2021 09:26-0400 BP/Pulse Patient Position Huan Cowan [facility] 08-08-2021 09:26-0400 Diastolic blood pressure 82 mm[Hg] Huan Cowan [facility] 08-08-2021 09:26-0400 Heart rate 65 /min Huan Cowan [facility] 08-08-2021 09:26-0400 Mean blood pressure 99 mm[Hg] Huan Cowan [facility] 08-08-2021 09:26-0400 Respiratory rate 20 /min Huan Cowan [facility] 08-08-2021 09:26-0400 SaO2% (BldA) [Mass fraction] 97 % Huan Cowan [facility] 08-08-2021 09:26-0400 Systolic blood pressure 134 mm[Hg] Huan Cowan [facility] 07-31-2021 12:15-0400 Diastolic blood pressure 86 mm[Hg] Jayy Patel MD Work Phone: [facility] 07-31-2021 12:15-0400 Heart rate 79 /min Jayy Patel MD Work Phone: [facility] 07-31-2021 12:15-0400 SaO2% (BldA) [Mass fraction] 95 % Jayy Patel MD Work Phone: [facility] 07-31-2021 12:15-0400 Systolic blood pressure 146 mm[Hg] Jayy Patel MD Work Phone: [facility] 07-31-2021 11:45-0400 Body temperature 97.3 [degF] Jayy Patel MD Work Phone: [facility] 07-31-2021 09:25-0400 Respiratory rate 18 /min Jayy Patel MD Work Phone: [facility] 07-26-2021 13:36-0400 Body height 185.4 cm [facility] 07-26-2021 13:36-0400 Body weight 182.35 kg [facility] 07-25-2021 09:10-0400 Body height 185.4 cm Natalia Aguillon APRN.AUTOMATIC BRINE MIXER OPERATOR Work Phone: [facility] 07-25-2021 09:10-0400 Body weight 182.35 kg Natalia Aguillon APRN.AUTOMATIC BRINE MIXER OPERATOR Work Phone: [facility] 07-25-2021 09:10-0400 Diastolic blood pressure 78 mm[Hg] Natalia Aguillon APRN.AUTOMATIC BRINE MIXER OPERATOR Work Phone: [facility] 07-25-2021 09:10-0400 Heart rate 88 /min Natalia Aguillon APRN.AUTOMATIC BRINE MIXER OPERATOR Work Phone: [facility] 07-25-2021 09:10-0400 SaO2% (BldA) [Mass fraction] 98 % Natalia Aguillon APRN.AUTOMATIC BRINE MIXER OPERATOR Work Phone: [facility] 07-25-2021 09:10-0400 Systolic blood pressure 136 mm[Hg] Natalia Aguillon APRN.AUTOMATIC BRINE MIXER OPERATOR Work Phone: [facility] 08-02-2020 09:45-0400 SaO2% (BldA) [Mass fraction] 93 % Santo Huynh MD [facility] Work Phone: 08-02-2020 07:14-0400 Body temperature 98.2 [degF] Santo Huynh MD [facility] Work Phone: 08-02-2020 07:14-0400 Diastolic blood pressure 95 mm[Hg] Santo Huynh MD [facility] Work Phone: 08-02-2020 07:14-0400 Heart rate 93 /min Santo Huynh MD [facility] Work Phone: 08-02-2020 07:14-0400 Respiratory rate 20 /min Santo Huynh MD [facility] Phone: 08-02-2020 07:14-0400 Systolic blood pressure 132 mm[Hg] Santo Huynh MD [facility] Phone: 08-01-2020 14:54-0400 Body height 185.4 cm Santo Huynh MD [facility] Phone: 08-01-2020 14:54-0400 Body mass index (BMI) [Ratio] 51.72 kg/m2 Santo Huynh MD [facility] Phone: 08-01-2020 14:54-0400 Body weight 177.81 kg Santo Huynh MD [facility] Phone: Encounters Encounter Date Encounter Type Care Provider Facility Start: 02-04-2024 End: 02-04-2024 Bamboo flowsalison Cowan DO Work Phone: [facility] Start: 02-04-2024 End: 02-04-2024 Bamboo flowsheet Huan Cowan DO Work Phone: [facility] Start: 02-04-2024 End: 02-04-2024 ambulatory HUAN COWAN Not Available Start: 11-11-[address] [facility] Start: 11-11-2023 End: 11-11-2023 ambulatory Brenton Pena MD Facility: [facility] Start: 10-07-2023 End: 10-07-2023 ambulatory [facility] Start: 09-26-2023 End: 09-26-2023 ambulatory [facility] Start: 09-26-2023 End: 09-26-2023 ambulatory [facility] Start: 09-26-2023 End: 09-26-2023 ambulatory [facility] Start: 09-26-2023 End: 09-26-2023 ambulatory Joel Bledsoe Facility:[facility] Start: 09-19-2023 End: 09-19-[address] [facility] Start: 09-16-2023 End: 09-16-2023 ambulatory Brenton Pena MD Facility:[facility] Start: 09-06-2023 Evaluation and management of inpatient [facility] Start: 09-04-2023 Evaluation and management of inpatient [facility] Start: 09-03-2023 Evaluation and management of inpatient [facility] Start: 09-03-2023 Evaluation and management of inpatient [facility] Start: 09-03-2023 [facility] Start: 09-03-2023 Evaluation and management of inpatient ISAIAS DEMPSEY [facility] Start: 09-03-2023 Evaluation and management of inpatient [facility] Start: 09-02-2023 End: 09-06-2023 Evaluation and management of inpatient [facility] Start: 08-14-2023 End: 08-14-2023 ambulatory KENDALL SANDOVAL [facility] Start: 08-07-2023 End: 08-07-2023 ambulatory [facility] Start: 08-06-2023 End: 08-06-2023 ambulatory HUAN COWAN Not Available Start: 07-25-2023 End: 07-25-2023 ambulatory ISAIAS DEMPSEY [facility] Start: 07-25-2023 [facility] Start: 07-17-2023 End: 07-17-2023 ambulatory ANNABELLA [facility] Start: 07-17-2023 ambulatory [facility] Start: 07-05-2023 Evaluation and management of inpatient ISAIAS J [facility] Start: 07-04-2023 Evaluation and management of inpatient ISAIAS DEMPSEY [facility] Start: 07-03-2023 Evaluation and management of inpatient ISAIAS Herbert [facility] Start: 07-02-2023 Evaluation and management of inpatient [facility] Start: 07-01-2023 [facility] Start: 07-01-2023 [facility] Start: 06-30-2023 [facility] Start: 06-29-2023 Evaluation and management of inpatient ISAIAS Herbert [facility] Start: 06-29-2023 Evaluation and management [facility] Start: 06-28-2023 Evaluation and management of inpatient ISAIAS Herbert [facility] Start: 06-28-2023 Evaluation and management of inpatient [facility] Start: 06-27-2023 Evaluation and management of inpatient [facility] Start: 06-27-2023 Evaluation and management of inpatient [facility] Start: 06-26-2023 Evaluation and management of inpatient [facility] Start: 06-26-2023 Evaluation and management of inpatient [facility] Start: 06-26-2023 Evaluation and management of inpatient [facility] Start: 06-25-2023 End: 06-25-2023 Evaluation and management of inpatient PAUL GEORGE [facility] Start: 06-21-2023 [facility]: 06-21-2023 Evaluation and management of inpatient [facility] Start: 06-21-2023 Evaluation and management of inpatient JODY KOCH [facility] Start: 06-20-2023 End: 07-05-2023 Evaluation and management of inpatient PAUL GEORGE [facility] Start: 06-14-2023 End: 06-14-2023 ambulatory DEVORAMomo SHARMARON [facility] Start: 06-11-2023 End: 06-11-2023 ambulatory Natalia Aguillon Facility:[facility] Start: 06-11-2023 End: 06-11-2023 Patient encounter procedure [facility] Neurosurgery Work Phone: Start: 06-10-2023 ambulatory Vonnie Guerrero Facility: [facility] Start: 04-22-2023 End: 04-22-2023 ambulatory Brenton Pena MD Facility:[facility] Start: 04-11-2023 End: 04-11-2023 ambulatory HUAN COWAN [facility] Other Start: 04-11-2023 Office outpatient vi sit 15 minutes Siri Quezada [facility] Neurosurgery Start: 04-03-2023 End: 04-03-2023 ambulatory HUAN COWAN Not Available Start: 03-07-2023 End: 03-08-2023 ambulatory Huan Cowan [facility] Start: 03-07-2023 End: 03-07-2023 Departed Referred REFRIGERATION ENGINEERING TEACHER-C Natalia Aguillon Work Phone: [facility] [place] Work Phone: Start: 03-07-2023 End: 03-07-2023 Patient encounter procedure Huan Cowan [facility] Start: 03-07-2023 End: 03-07-2023 ambulatory REFRIGERATION ENGINEERING TEACHER-C Natalia Aguillon Work Phone: [facility] Work Phone: Start: 03-07-2023 End: 03-07-2023 ambulatory HUAN COWAN Not Available Start: 03-04-2023 End: 03-04-2023 ambulatory Brenton Pena MD Facility: [facility] Start: 02-26-2023 End: 02-27-2023 ambulatory Huan Cowan Facility[facility] Start: 02-26-2023 End: 02-26-2023 Patient encounter procedure Huan Cowan [facility] Start: 02-25-2023 End: 02-26-2023 ambulatory Huan Brodie Yung Facility[facility] Start: 02-25-2023 End: 02-25-2023 Patient encounter procedure Huan Cowan [facility] Start: 02-04-2023 Registered Recurring REFRIGERATION ENGINEERING TEACHER-C Lis Aguillon Work Phone: [facility]-Weight Management Work Phone: Start: 02-04-2023 Nutrition therapy Kandis Amado [facility] Start: 02-04-2023 End: 02-04-2023 ambulatory [employer] [facility] Other Start: 01-28-2023 End: 01-28-2023 ambulatory [facility] Start: 01-22-2023 ambulatory Vonnie Guerrero Facility:[facility] Start: 01-17-2023 Office outpatient ne w 45 minutes [employer] [facility] Neurosurgery Start: 01-17-2023 End: 01-17-2023 Patient encounter procedure REFRIGERATION ENGINEERING TEACHER-C Natalia Aguillon Work Phone: [facility]XRay [facility] [place] Work Phone: Start: 01-17-2023 End: 01-17-2023 ambulatory REFRIGERATION ENGINEERING TEACHER-C Natalia Aguillon Work Phone: [facility] Work Phone: Start: 01-17-2023 End: 01-17-2023 Patient encounter procedure REFRIGERATION ENGINEERING TEACHER-C Natalia Aguillon Work Phone: [facility]XRay [facility] Work Phone: Start: 01-17-2023 End: 01-17-2023 ambulatory REFRIGERATION ENGINEERING TEACHER-C Natalia Aguillon Work Phone: [facility] Work Phone: Start: 01-09-2023 End: 01-10-2023 ambulatory Vonnie Natalie Guerrero Facility:[facility] Start: 12-16-2022 Office outpatient ne w [address] [facility] Start: 12-16-2022 End: 12-16-2022 Patient encounter procedure REFRIGERATION ENGINEERING TEACHER-C Natalia Aguillon Work Phone: [facility] Work Phone: Start: 12-16-2022 End: 12-16-2022 ambulatory Kelly Kassidy [facility] Other Start: 2022 Refill Natalia alvarenga APRN.AUTOMATIC BRINE MIXER OPERATOR Work Phone: [facility] Comment on above: Refill Request Start: 07-10-2022 Refill [facility] Provider [facility] [place] Comment on above: Refill Request Start: 07-09-2022 Refill Natalia alvarenga APRN.AUTOMATIC BRINE MIXER OPERATOR Work Phone: [facility] Comment on above: Refill Request Start: 05-28-2022 Telephone encounter Natalia brown APRN.AUTOMATIC BRINE MIXER OPERATOR Work Phone: [facility] Comment on above: Results Start: 05-26-2022 ambulatory NATALIA AGUILLON Facilit y:[facility] Start: 05-21-2022 End: 05-21-2022 ambulatory NATALIA AGUILLON Facility:[facility] Start: 05-21-2022 End: 05-21-2022 Patient encounter procedure Natalia Aguillon APRN.AUTOMATIC BRINE MIXER OPERATOR Work Phone: [facility] Comment on above: Morbid obesity with BMI of 50.0-59.9, adult (HCC) (Primary Dx); Vitamin D deficiency; Essential hypertension; Mixed hyperlipidemia; Impaired fasting blood sugar; Chronic pain due to trauma; Proteinuria, unspecified type Start: 05-19-2022 End: 05-20-2022 ambulatory NATALIA AGUILLON Facility:[facility] Start: 04-20-2022 End: 04-21-[address] KINGSLEY HERRERA Facility: Start: 03-06-2022 ambulatory Natalia alvarenga APRN.AUTOMATIC BRINE MIXER OPERATOR Work Phone: [facility] Comment on above: PHMA/Care Gap Outrea ch (BP) Start: 02-15-2022 End: 02-15-2022 Patient encounter procedure Natalia Aguillon APRN.AUTOMATIC BRINE MIXER OPERATOR Work Phone: [facility] Comment on above: Morbid obesity with BMI of 50.0-59.9, adult (HCC) (Primary Dx); Essential hypertension; Mixed hyperlipidemia; Lung nodules; Chronic pain due to trauma; History of colon polyps; S/P shoulder replacement, left; Obstructive sleep apnea syndrome; Fatty liver; Impaired fasting blood sugar Start: 02-15-2022 End: 02-15-2022 ambulatory Natalia Aguillon APRN.AUTOMATIC BRINE MIXER OPERATOR Work Phone: [facility] Comment on above: BLOOD PRESSURE Start: 02-15-2022 E-mail encounter fro m caregiver Natalia Aguillon APRN.AUTOMATIC BRINE MIXER OPERATOR Work Phone: [facility] Start: 02-10-2022 End: 02-11-2022 ambulatory NATALIA AGUILLON Facility:[facility] Start: 01-02-2022 End: 01-02-2022 Patient encounter procedure Huan Cowan [facility] Start: 12-11-2021 Get Medical Advice [facility] Provider I nternal Medicine [place] Comment on above: Lisinopril refill Start: 11-15-2021 End: 11-15-2021 ambulatory NATALIA AGUILLON Facility:[facility] Start: 11-15-2021 End: 11-15-2021 Patient encounter procedure Natalia Aguillon APRN.AUTOMATIC BRINE MIXER OPERATOR Work Phone: [facility] Comment on above: Morbid obesity with BMI of 50.0-59.9, adult (HCC); Mixed hyperlipidemia; Essential hypertension; Arthralgia of multiple sites; Prediabetes; Obstructive sleep apnea syndrome; Abnormal weight gain; Fatty metamorphosis of liver Start: 10-27-2021 Telephone encounter Becca Singh SS Endocrinology Comment on above: ENDO WEIGHT MGMT - P SYCH Start: 09-27-2021 ambulatory Anh Howard MD Work Phone: Endocrinology Comment on above: Metformin prescripti on Start: 09-22-2021 End: 09-22-2021 ambulatory NATALIA PAL Facility:[facility] Start: 09-19-2021 End: 09-19-2021 ambulatory Brisa Edmondson RDMS Radiology Comment on above: Radiology US Start: 09-19-2021 End: 09-19-2021 Patient encounter procedure Brisa Edmondson RDID [facility] Comment on above: SOB (shortness of br eath) on exertion Start: 09-19-2021 End: 09-19-2021 Subsequent hospital visit by physician [facility] Comment on above: Elevated liver enzym es [R74.8] Stenosis of carotid artery, unspecified laterality [I65.29] Start: 09-18-2021 End: 09-18-2021 Subsequent hospital visit by physician [facility] RADIO CT [facility] Comment on above: Lung nodules [R91.8] [...] with patient Anh Howard MD Work Phone: [facility] Start: 08-30-2021 End: 08-30-2021 ambulatory ANH HOWARD Facility:[facility] Start: 08-30-2021 End: 08-30-[address] Nutrition Therapy Comment on above: Morbid obesity with BMI of 50.0-59.9, adult (HCC); Mixed hyperlipidemia; Essential hypertension; Arthralgia of multiple sites; Prediabetes; Obstructive sleep apnea syndrome; Abnormal weight gain; Fatty metamorphosis of liver Start: 08-30-2021 End: 08-30-2021 Telemedicine consultation with patient Britney Jamison RD [facility] Start: 08-23-2021 End: 08-23-2021 Admission to same day surgery center Huan Cowan [facility] Start: 08-15-2021 End: 08-15-2021 ambulatory NATALIA AGUILLON Facility:[facility] Start: 08-15-2021 End: 08-15-2021 Patient encounter procedure Anh Howard MD Work Phone: Endocrinology Comment on above: Morbid obesity with BMI of 50.0-59.9, adult (HCC) (Primary Dx); Mixed hyperlipidemia; Essential hypertension; Arthralgia of multiple sites; Prediabetes; Obstructive sleep apnea syndrome; Abnormal weight gain; Fatty metamorphosis of liver Start: 08-10-2021 End: 08-10-2021 ambulatory NATALIA AGUILLON Facility:[facility] Start: 08-10-2021 End: 08-10-2021 Patient encounter procedure Natalia Aguillon APRN.CNP Work Phone: [facility] [place] Comment on above: Routine physical exa mination (Primary Dx); Mixed hyperlipidemia; Morbid obesity with BMI of 50.0-59.9, adult (HCC); Elevated liver enzymes; Stenosis of carotid artery, unspecified laterality; SOB (shortness of breath) on exertion; Essential hypertension; Lung nodules; Environmental allergies; Chronic pain after traumatic injury; Impaired fasting blood sugar Start: 08-10-2021 End: 08-10-2021 Physical examination Natalia Aguillon APRN.CNP Work Phone: [facility] [place] Start: 08-08-2021 End: 08-08-2021 Patient encounter procedure Huan Cowan [facility] Start: 07-31-2021 End: 07-31-2021 Subsequent hospital visit by physician Jayy Patel MD Work Phone: [facility] Comment on above: Dark stools [R19.5] Start: 07-29-2021 End: 07-30-2021 [facility] Start: 07-29-2021 Encounter for other specified special examinations ANH HOWARD [facility] Start: 07-26-2021 End: 07-26-2021 ambulatory [facility] Facility:[facility] Start: 07-26-2021 Encounter for other preprocedural examination ANH [facility] Start: 07-26-2021 End: 07-26-[address] [facility] Start: 07-26-2021 End: 07-26-2021 ambulatory Pac Virtual Pre Anesthesia Comment on above: Pre-op evaluation (P rimary Dx); Screen for colon cancer; Essential hypertension; Mixed hyperlipidemia; Obstructive sleep apnea syndrome; Shortness of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
== END 2024-02-08 08:00 | disposition home or self-care (01) ==
LOC: US 07:59
PROVIDERS: PCP Family Medicine; Visit Provider Nurse Practitioner Family
DX: R10.11 Right upper quadrant pain (principal)
CPT/HCPCS: 76705

== ENCOUNTER 2024-02-20 14:51 | Outpatient (OUT) | payer BC, SELFPAY ==
--- NOTE | 2024-02-20 14:56 | CA_ITS ---
Patient Name: NEHAL BAIG MR#: [id number] : 1970 Exam Date: 02/20/2024 Ordering Doctor: MARY GARCIA CNP ECHOCARDIOGRAM REPORT PROCEDURE: CA ECHO DOPPLER COMPLETE INDICATIONS: Fatigue COMPARISON: None. DESCRIPTION: COMPLETE ECHOCARDIOGRAM Real-time transthoracic echocardiography with 2D, M-mode, spectral and color flow Doppler performed. QUALITY: Technical quality was limited. LEFT VENTRICLE: Normal chamber size. Borderline left ventricular hypertrophy. Systolic function is difficult to assess due to poor endocardial border definition but appears preserved. LV EF: Normal left ventricular ejection fraction, (55%). DIASTOLIC: ATRIAL SEPTUM: LEFT ATRIUM: Mild dilatation. RIGHT ATRIUM: Normal chamber size. RIGHT VENTRICLE: Normal chamber size. Normal right ventricular systolic function. TRICUSPID VALVE: Normal mobility and thickness. No stenosis with trivial regurgitation. No evidence of pulmonary hypertension. RVSP 22 mmHg MITRAL VALVE: Normal mobility and thickness. No evidence of mitral valve stenosis. There is no mitral annular calcification. Trivial mitral regurgitation. AORTIC VALVE: Bileaflet mechanical valve well seated in the aortic position with normal leaflet motion and normal doppler flow. No aortic regurgitation. Mean gradient 9.4 mmHg. AORTIC ROOT: Normal diameter and appearance. PULMONIC VALVE: Normal thickness and mobility. No stenosis. No regurgitation. PERICARDIUM: No evidence of pericardial effusion. IVC: Collapses with inspirations. Mild dilatation measuring 2.2 cm. PLEURA: CONCLUSION: 1. Borderline left ventricular hypertrophy. Systolic function is difficult to assess due to poor endocardial border definition but appears preserved. Estimated LVEF is 55%. 2. Normal right ventricular size and systolic function. 3. Bileaflet mechanical valve is well-seated in the aortic position with normal Doppler flows and no regurgitation. 4. Normal right-sided pressures. 5. No pericardial effusion. Adult Echocardiography Procedure Report Left Ventricle LVEDD (3.7 - 5.6 cm): 5.40 cm LVESD (2.2 - 4.0 cm): 4.28 cm LVIVS thickness (0.6 - 1.2 cm): 0.96 cm LVPW thickness (0.5 - 1.0 cm): 1.06 cm e': 0.11 m/s E - e': 9.17 LVOT Max Gradient: 1.40 mm[Hg] LVOT Area (cm2): 0.59 m/s Peak Velocity (LVOT): 0.59 m/s Mean Velocity (LVOT): 0.40 m/s LVOT Diameter 1.94 cm Left Ventricular Ejection Fraction: 55 % Left Atrium LA Volume Index (2D A2C): 24.46 ml/m2 Left Atrium Systolic Dimension: 3.91 cm Mitral Valve MV E to A Ratio: 2.34 Mitral Valve A-Wave Peak Velocity: 0.42 m/s Mitral Valve E-Wave Peak Velocity: 0.98 m/s Right Ventricle RV Internal Diastolic Dimension: 3.68 cm Aorta AO Root Diam: 2.88 cm Ascending Ao Diam: 3.28 cm Aortic Valve AoV Area (Peak Derik): 0.91 cm2, 0.89 cm2, 286.63 cm2, 286.63 cm2 AoV Area (VTI): 1.00 cm2, 0.91 cm2 Peak Velocity(Antegrade Flow): 1.97 m/s, 1.89 m/s, 0.01 m/s Peak Gradient(Antegrade Flow): 0.00 mm[Hg], 15.51 mm[Hg], 14.29 mm[Hg] Mean Velocity(Antegrade Flow): 1.46 m/s, 1.29 m/s Mean Gradient(Antegrade Flow): 9.38 mm[Hg], 7.43 mm[Hg] Velocity Time Integral: 42.10 cm, 34.18 cm Tricuspid Valve Peak Velocity (Regurgitant Flow): 1.86 m/s, 1.86 m/s Pulmonic Valve Peak Velocity: 0.86 m/s Peak Gradient: 2.39 mm[Hg], 3.57 mm[Hg] Right Atrium Right Atrium Systolic Pressure: 47.63 ml, 47.63 ml Dictated by: Maximiliano Pack M.D. on 02/20/2024 at 20:17 Approved by: Maximiliano Pack M.D. on 02/20/2024 at 20:26
== END 2024-02-20 14:52 | disposition home or self-care (01) ==
LOC: CARD 14:54
PROVIDERS: PCP Family Medicine; Visit Provider Nurse Practitioner Family
DX: R53.83 Other fatigue (principal)
CPT/HCPCS: 93306

== ENCOUNTER 2024-03-02 03:25 | Outpatient (RCR) | payer BC, SELFPAY | END 2024-03-31 09:38 | disposition home or self-care (01) | LOC: MM 03:25 | PROVIDERS: PCP Family Medicine; Visit Provider Internal Medicine | DX: Z51.81 Encounter for therapeutic drug level monitoring (principal); Z79.01 Long term (current) use of anticoagulants; Z95.2 Presence of prosthetic heart valve | CPT/HCPCS: 85610; G0463 ==

== ENCOUNTER 2024-03-05 14:59 | Outpatient (OUT) | payer BC, SELFPAY ==
--- NOTE | 2024-03-05 15:21 | P.CN_ITS ---
Consult Note: HPI Data of Consult Patient: known to practice within the last 3 years Consult date: 09/16/23 Requesting Physician: Miya Batista NP Primary Care Provider: Demetrius Parish MD Consult Narrative Reason for consult: low back pain Narrative: 53yom who presents for assessment. notes significant low back pain that is worsened with ambulation. continues on norco 7.5-325mg BID prn. also uses gabapentin 400mg BID. denies adverse med side effects. recently underwent bilateral L4/5 TFESI and bilateral L5/S1 TFESI with >50% improvement in pain and functional ability. Patient denies numbness tingling or weakness. pain today 2/10 above his coccyx, increased with standing and walking as well as bending. Following with GI for enlarged liver and GI bleeding. cc:: CC: Miya Batista NP Review of Systems ROS Status of ROS 10 or more systems reviewed and unremark able except as noted in history and below Musculoskeletal Reports: [facility] Medical History (Updated 01/27/24 @ 18:22 by Christopher Orourke MD) Hypoxia ?R09.02 - Hypoxemia (ICD-10) Community acquired pneumonia ?J18.9 - Pneumonia, unspecified organism (ICD-10) Febrile illness ?R50.9 - Fever, unspecified (ICD-10) Intractable back pain ?M54.9 - Dorsalgia, unspecified (ICD-10) Chronic lumbosacral pain ?M54.50 - Low back pain, unspecified (ICD-10) ?G89.29 - Other chronic pain (ICD-10) Foot pain ?M79.673 - Pain in unspecified foot (ICD-10) Ankle pain ?M25.579 - Pain in unspecified ankle and joints of unspecified foot (ICD-10) Achilles tendinitis ?M76.60 - Achilles tendinitis, unspecified leg (ICD-10) Plantar fascial fibromatosis ?M72.2 - Plantar fascial fibromatosis (ICD-10) Migraine ?G43.909 - Migraine, unspecified, not intractable, without status migrainosus (ICD-10) GERD (gastroesophageal reflux disease) ?K21.9 - Gastro-esophageal reflux disease without esophagitis (ICD-10) Heartburn ?R12 - Heartburn (ICD-10) High cholesterol ?E78.00 - Pure hypercholesterolemia, unspecified (ICD-10) Calcaneal spur ?M77.30 - Calcaneal spur, unspecified foot (ICD-10) Strain of Achilles tendon ?S86.019A - Strain of unspecified Achilles tendon, initial encounter (ICD-10) Low back pain ?M54.50 - Low back pain, unspecified (ICD-10) Kidney stones ?N20.0 - Calculus of kidney (ICD-10) Sleep apnea ?G47.30 - Sleep apnea, unspecified (ICD-10) Hypertension ?I10 - Essential (primary) hypertension (ICD-10) Surgical History Aortic valve replaced ?Z95.2 - Presence of prosthetic heart valve (ICD-10) History of colonoscopy ?Z98.890 - Other specified postprocedural states (ICD-10) History of foot surgery ?Z98.890 - Other specified postprocedural states (ICD-10) H/O vasectomy (2014) ?Z98.52 - Vasectomy status (ICD-10) H/O shoulder replacement ?Z96.619 - Presence of unspecified artificial shoulder joint (ICD-10) History of carpal tunnel release ?Z98.890 - Other specified postprocedural states (ICD-10) Family History Grandmother Family history of CHF (congestive heart failure) Family history of COPD (chronic obstructive pulmonary disease) Mother Family history of COPD (chronic obstructive pulmonary disease) Family history of cancer Other Family history of lung cancer Social History Within the past year, how often did you have a drink containing alcohol: monthly or less Smoking status: Never smoker Non-prescribed substance use: denies use 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 Highest level of school completed/degree received: some college, no degree Are you now , , , , never or living with a partner: living with partner In a typical week, how many times do you talk on the telephone with family, friends, or neighbors: 3 or more times per week How often do you get together with friends or relatives: 3 or more times per week How often do you attend orthodoxy or presybeterian services: never Do you belong to any clubs or organizations such as orthodoxy groups unions, fraternal or athletic groups, or school groups: no Total score: 2 Score interpretation: A score of greater than or equal to 2 indicates the lowest level of social isolation. Little interest or pleasure in doing things: not at all Feeling down, depressed, or hopeless: not at all Feel stressed/tense/nervous/anxious/difficulty sleeping: not at all Do you think of yourself as: straight/heterosexual Gender Identity: male Meds Home Medications and Allergies Home Medications ?Medication ?Instructions ?Recorded ?Confirmed ?Type omeprazole 20 mg capsule,delayed 40 mg PO DAILY 01/28/23 12/08/23 History release aspirin 81 mg tablet,delayed 81 mg PO DAILY 02/24/23 12/08/23 History release (Adult Aspirin Regimen) warfarin 5 mg tablet 2.5 mg PO DAILY 09/02/23 11/25/23 History warfarin 5 mg tablet 5 mg PO DAILY 09/02/23 12/08/23 History cholecalciferol (vitamin D3) 50 50 mcg PO DAILY 09/16/23 12/08/23 History mcg (2,000 unit) capsule gabapentin 400 mg capsule 400 mg PO DAILY 09/16/23 11/25/23 History gabapentin 400 mg capsule See Rx Instructions .Route 09/16/23 12/08/23 Rx .COMPLEX #150 caps metoprolol succinate 25 mg capsule 25 mg PO DAILY 09/16/23 12/08/23 History sprinkle, ext. release 24 hr spironolactone 25 mg tablet 12.5 mg PO DAILY 09/16/23 12/08/23 History hydrocodone 7.5 mg-acetaminophen 1 tab PO QID PRN pain #110 tabs 10/16/23 12/08/23 Rx 325 mg tablet hydrocodone 7.5 mg-acetaminophen 1 tab PO QID PRN pain #110 tabs 11/27/23 Rx 325 mg tablet metformin 500 mg tablet 500 mg PO DAILY #14 tabs 01/27/24 Rx hydrocodone 7.5 mg-acetaminophen 1 tab PO BID PRN pain #60 tabs 01/28/24 Rx 325 mg tablet hydrocodone 7.5 mg-acetaminophen 1 tab PO BID PRN pain #60 tabs 03/02/24 Rx 325 mg tablet Allergies Allergy/AdvReac Type Severity Reaction Status Date / Time No Known Drug Allergies Allergy Verified 12/08/23 13:30 Exam Constitutional Documenting provider has reviewed patient's vital signs: yes Common normals: no apparent distress, oriented x3, healthy appearing, alert and well nourished General appearance: cooperative HENMT Common normals: normocephalic, hearing grossly normal bilaterally and moist oral mucous membranes Head and scalp: normocephalic Eye Common normals: PERRL Pupil: PERRL Neck & C-Spine Common normals: full ROM General: normal visual inspection Chest Common normals: inspection of chest normal Respiratory Common normals: normal respiratory effort, no retractions and no use of accessory muscles Back & Pelvis Lumbar spine/lower back: normal to inspection, ROM limited and straight leg raise negative bilaterally; no pain with ROM, no lumbar spinal tenderness and no paraspinal muscle tenderness Other: mildly positive facet loading mild pain over L4-S1 facets sensation intact BLE strength 5/5 in BLE Extremity Common normals: normal to inspection and full ROM Neuro Common normals: oriented x3, CN's II-XII intact bilaterally, moves all extremities, no focal motor deficits, no sensory deficits noted, deep tendon ref lexes 2+ bilaterally and gait normal Sensorium/orientation: alert Motor exam: strength 5/5 throughout and no movement abnormalities noted Psych Common normals: mental status grossly normal, thought process normal, cooperative, affect normal, speech normal and activity/motor behavior normal Speech: normal speech Thought process: normal thought process Results Additional Findings Additional findings: If on a controlled substance or opioids, I have checked an [place]AR[place] report on this patient and there are no aberrancies noted in the prescribing history.??If on a controlled substance or opioid a drug screen was completed and reviewed within the last year, and if there has not been a drug screen completed we ordered one today to monitor higher risk, state monitored pain medication use. As part of providing excellent, safe, comprehensive care, the following was completed at our patient's visit: 1. A medication reconciliation and review to ensure accurate knowledge of current/active medications, including asking our patients to inform us about any [id number] medications or herbal remedies/nutritional supplements/alternative remedies. 2. A review to specifically ensure our patients have had annual screening for screening for depression, screening for tobacco use, and screening for unhealthy alcohol use. For concerning screenings had a discussion with the patient, provided patient education, and recommended follow-up with primary care provider when appropriate. If patient noted with a risk of falling, they received education on strength, gait, and balance training to prevent future risk of falling. Assessment and Plan Assessment and Plan (1) Lumbar pain: Assessment and Plan: VICKIE previously 74%, 52%, 46%, 42% and now 16% and patient back to working (2) Lumbar radiculopathy: (3) Myofascial pain: (4) Lumbar spondylosis: (5) Encounter for long-term opiate analgesic use: Assessment and Plan: I feel these medications are improving the patient's quality of life and allow them to tolerate activities of daily living as well as participate in recreational activity.? The patient does not report intolerable side effects. The patient is NOT opioid naive and non-pharmacologic and non-opioid treatment has failed to significantly relieve the patient's pain and improve functionality. The patient has a diagnosis that is related to a somatic or visceral pain etiology. ? ?? I reviewed with the patient the potential risks and side effects with the use of? opioid medications including but not limited to respiratory depression,? sedation, and even . I verified the patient has access to naloxone should? these effects occur. I advised the patient to avoid the use of any other? sedation substances including alcohol, THC, and benzodiazepines while? taking opioid medications due to the risk of compounding side effects and? detrimental outcomes. I reviewed the CHIEF CARDIOPULMONARY TECHNOLOGIST, pain treatment agreement, urine? drug screen, and opioid start talking forms. The patient was advised to let? their family know they had Naloxone in case they would need to administer? the medication.? ?? A drug screen was completed within the last year, and no aberrancies were noted regarding their use of controlled substances. The patient understands they are subject to the terms and conditions of the pain contract that they have signed. ? ?? I have checked an [place]AR[place] report on this patient today and there are no aberrancies noted in the prescribing history.? (6) Lumbar stenosis with neurogenic claudication: Plan decrease norco 7.5-325mg BID PRN moderate to severe pain 50 tabs/month continue gabapentin and baclofen as ordered continue HEP as tolerated f/u 3 months, sooner if needed
== END 2024-03-05 15:00 | disposition home or self-care (01) ==
LOC: PM 14:59
PROVIDERS: PCP Family Medicine; Visit Provider Nurse Practitioner
DX: M54.50 Low back pain, unspecified (principal); M54.16 Radiculopathy, lumbar region; M79.18 Myalgia, other site; M47.816 Spondylosis without myelopathy or radiculopathy, lumbar region; Z79.891 Long term (current) use of opiate analgesic; M48.062 Spinal stenosis, lumbar region with neurogenic claudication
CPT/HCPCS: G0463

== ENCOUNTER 2024-04-02 00:30 | Outpatient (RCR) | payer BC, SELFPAY | END 2024-05-01 14:58 | disposition home or self-care (01) | LOC: MM 00:30 | PROVIDERS: PCP Family Medicine; Visit Provider Internal Medicine | DX: Z51.81 Encounter for therapeutic drug level monitoring (principal); Z79.01 Long term (current) use of anticoagulants; Z95.2 Presence of prosthetic heart valve ==

== ENCOUNTER 2024-04-04 07:48 | Outpatient (OUT) | payer BC, SELFPAY ==
[2024-04-04 08:15] LABS: Basophils Absolute Auto 0.1 10^3/uL (0.0-0.1); Basophils Percent Auto 0.7 % (0.2-2.0); Eosinophils Absolute Auto 0.2 10^3/uL (0.0-0.7); Eosinophils Percent Auto 2.9 % (0.9-7.0); Hematocrit 45.8 % (42.0-54.0); Hemoglobin 15.1 g/dL (14.0-18.0); Immature Granulocytes Abs Auto 0.01 10^3/uL (0.00-0.03); Immature Granulocytes Pct Auto 0.1 % (0.0-0.5); Lymphocytes Absolute Auto 1.1 10^3/uL (1.2-3.8); Lymphocytes Percent Auto 16.2 % (20.5-60.0); Mean Corpuscular Hemoglobin 28.7 pg (25.9-34.0); Mean Corpuscular Volume 87.1 fL (80.0-94.0); Mean Platelet Volume 10.4 fL (9.5-13.5); Monocytes Absolute Auto 0.7 10^3/uL (0.3-0.8); Monocytes Percent Auto 9.6 % (1.7-12.0); Neutrophils Absolute Auto 4.8 10^3/uL (1.4-6.5); Neutrophils Percent Auto 70.5 % (43.0-75.0); Platelet Count 198 10^3/uL (150-450); Red Blood Count 5.26 10^6/uL (4.70-6.10); Red Cell Distribution Width 12.7 % (11.0-15.0); White Blood Count 6.8 10^3/uL (4.0-11.0)
[2024-04-04 08:28] LABS: Ammonia 16 umol/L (11-32)
[2024-04-04 08:40] LABS: INR 2.88; Prothrombin Time 27.5 sec (9.0-11.6)
[2024-04-04 09:15] LABS: Alanine Aminotransferase 23 U/L (16-63); Albumin Globulin Ratio 1.3; Albumin Level 4.1 g/dL (3.4-5.0); Alkaline Phosphatase 72 U/L (46-116); Anion Gap 11.1; Aspartate Amino Transferase 15 U/L (15-37); BUN Creatinine Ratio 17.4; Bilirubin Total 0.5 mg/dL (0.2-1.0); Calcium 9.1 mg/dL (8.5-10.1); Carbon Dioxide 31.3 mmol/L (21.0-32.0); Chloride 104 mmol/L (98-107); Estimated GFR (African America >60 (>=60 mL/min/1.73m^2); Estimated GFR (Non-African Ame >60 (>=60 mL/min/1.73m^2); Globulin 3.1 g/dL; Glucose 111 mg/dL (74-106); Potassium 4.4 mmol/L (3.5-5.1); Sodium 142 mmol/L (136-145); Thyroid Stimulating Hormone 1.634 uIU/mL (0.358-3.740); Total Protein 7.2 g/dL (6.4-8.2)
[2024-04-04 09:44] LABS: Free T4 0.99 ng/dL (0.76-1.46)
[2024-04-04 10:44] LABS: Partial Thromboplastin Time 43.2 sec (22.3-36.2)
== END 2024-04-04 07:49 | disposition home or self-care (01) ==
LOC: LAB 07:50
PROVIDERS: PCP Family Medicine; Visit Provider Family Medicine
DX: R16.0 Hepatomegaly, not elsewhere classified (principal); I50.30 Unspecified diastolic (congestive) heart failure; I11.0 Hypertensive heart disease with heart failure
CPT/HCPCS: 36415; 80053; 82140; 83880; 84439; 84443; 85025; 85610; 85730

== ENCOUNTER 2024-04-14 16:14 | Outpatient (OUT) | payer BC, SELFPAY ==
--- NOTE | 2024-04-14 18:08 | US_ITS ---
[address] [address] Patient Name: NEHAL BAIG MRN: [id number] date: 1970 Sex: M Assigned Patient Location: US Current Patient Location: Accession/Order Number: [id number] Exam Date: 04/14/2024 18:08 Report Date: 04/15/2024 04:45 At the request of: CHANDRAKANT BERNAL Procedure: US right upper quadrant EXAMINATION: US right upper quadrant HISTORY: HEPATOMEGALY R16.0 COMPARISON: Ultrasound right upper quadrant 02/08/2024 TECHNIQUE: Transabdominal evaluation of the right upper quadrant. FINDINGS: LIVER: Slightly prominent, 18.3 cm, relatively normal echotexture. Color Doppler demonstrates patent hepatic veins. PORTAL VEIN: Duplex Doppler demonstrates normal hepatopetal flow pattern with flow velocity averaging 29 cm/s. GALLBLADDER: No visible gallstones, wall thickening, or pericholecystic free fluid. Negative sonographic Santana's sign. BILIARY: No abnormal dilation or stones. Common bile duct diameter is within normal limits. PANCREAS: Limited evaluation. No visible mass, abnormal atrophy, or duct dilation. KIDNEY: No hydronephrosis. No visible mass or stones. Size: 11.9 x 5.5 x 5.4 cm US/US right upper quadrant IMPRESSION: 1. Slightly prominent liver; nonspecific. 2. Otherwise unremarkable right upper quadrant ultrasound. Electronically authenticated by: JAYY GIVENS Date: 04/15/2024 04:45
== END 2024-04-14 16:15 | disposition home or self-care (01) ==
LOC: US 16:15
PROVIDERS: PCP Family Medicine; Visit Provider Family Medicine
DX: R16.0 Hepatomegaly, not elsewhere classified (principal)
CPT/HCPCS: 76705

== ENCOUNTER 2024-05-04 02:28 | Outpatient (RCR) | payer BC, SELFPAY | END 2024-05-29 12:41 | disposition home health service (06) | LOC: MM 02:28 | PROVIDERS: PCP Family Medicine; Visit Provider Internal Medicine | DX: Z51.81 Encounter for therapeutic drug level monitoring (principal); Z79.01 Long term (current) use of anticoagulants; Z95.4 Presence of other heart-valve replacement | CPT/HCPCS: 85610; G0463 ==

== ENCOUNTER 2024-05-13 07:59 | Outpatient (RCR) | payer BC, SELFPAY | END 2024-05-14 14:01 | disposition home or self-care (01) | LOC: PT 07:59 | PROVIDERS: PCP Family Medicine; Visit Provider Anesthesiology | DX: M47.816 Spondylosis without myelopathy or radiculopathy, lumbar region (principal); M48.062 Spinal stenosis, lumbar region with neurogenic claudication | CPT/HCPCS: 97750 ==

== ENCOUNTER 2024-05-30 11:56 | Outpatient (RCR) | payer BC, SELFPAY | END 2024-06-26 12:22 | disposition home or self-care (01) | LOC: MM 11:56 | PROVIDERS: PCP Family Medicine; Visit Provider Internal Medicine | DX: Z51.81 Encounter for therapeutic drug level monitoring (principal); Z79.01 Long term (current) use of anticoagulants; Z95.2 Presence of prosthetic heart valve | CPT/HCPCS: 85610; G0463 ==

== ENCOUNTER 2024-06-04 15:13 | Outpatient (OUT) | payer BC, SELFPAY ==
--- NOTE | 2024-06-04 15:57 | PM.CN ---
Consult Note: HPI Data of Consult Patient: known to practice within the last 3 years Requesting Physician: Miya Batista NP Primary Care Provider: Demetrius Parish MD Consult Narrative Reason for consult: low back pain Narrative: 53yom who presents for assessment. notes significant low back pain that is worsened with ambulation. continues on norco 7.5-325mg BID prn. also uses gabapentin 400mg BID. denies adverse med side effects. Pt has trialed numerous interventions and unfortunately the most helpful procedure was bilateral L4-5 L5-S1 facet RFAs completed april of 2023. Pt reported >90% improvement following these interventions, however in at the end of may 2023 he became septic and had significant pain and cardiac complications. We paused on interventional treatments following his sepsis, hospitalization, and aortic valve replacement. Patient continues to have moderate to severe low back pain impacting his work and quality of life. VICKIE 34%. Patient would like to discuss repeating his bilateral L4-5 L5-S1 facet RFAs as they provided him the most relief. His pain is 4/10 constant pressure increasing to 10/10 with bending, twisting, pushing, pulling, walking, standing. cc:: CC: Miya Batista NP Review of Systems ROS Status of ROS 10 or more systems reviewed and unremarkable except as noted in history and below Musculoskeletal Reports: back pain PFSH [facility] Medical History (Updated 01/27/24 @ 18:22 by Christopher Orourke MD) Hypoxia ?R09.02 - Hypoxemia (ICD-10) Community acquired pneumonia ?J18.9 - Pneumonia, unspecified organism (ICD-10) Febrile illness ?R50.9 - Fever, unspecified (ICD-10) Intractable back pain ?M54.9 - Dorsalgia, unspecified (ICD-10) Chronic lumbosacral pain ?M54.50 - Low back pain, unspecified (ICD-10) ?G89.29 - Other chronic pain (ICD-10) Foot pain ?M79.673 - Pain in unspecified foot (ICD-10) Ankle pain ?M25.579 - Pain in unspecified ankle and joints of unspecified foot (ICD-10) Achilles tendinitis ?M76.60 - Achilles tendinitis, unspecified leg (ICD-10) Plantar fascial fibromatosis ?M72.2 - Plantar fascial fibromatosis (ICD-10) Migraine ?G43.909 - Migraine, unspecified, not intractable, without status migrainosus (ICD-10) GERD (gastroesophageal reflux disease) ?K21.9 - Gastro-esophageal reflux disease without esophagitis (ICD-10) Heartburn ?R12 - Heartburn (ICD-10) High cholesterol ?E78.00 - Pure hypercholesterolemia, unspecified (ICD-10) Calcaneal spur ?M77.30 - Calcaneal spur, unspecified foot (ICD-10) Strain of Achilles tendon ?S86.019A - Strain of unspecified Achilles tendon, initial encounter (ICD-10) Low back pain ?M54.50 - Low back pain, unspecified (ICD-10) Kidney stones ?N20.0 - Calculus of kidney (ICD-10) Sleep apnea ?G47.30 - Sleep apnea, unspecified (ICD-10) Hypertension ?I10 - Essential (primary) hypertension (ICD-10) Surgical History Aortic valve replaced ?Z95.2 - Presence of prosthetic heart valve (ICD-10) History of colonoscopy ?Z98.890 - Other specified postprocedural states (ICD-10) History of foot surgery ?Z98.890 - Other specified postprocedural states (ICD-10) H/O vasectomy (2013) ?Z98.52 - Vasectomy status (ICD-10) H/O shoulder replacement ?Z96.619 - Presence of unspecified artificial shoulder joint (ICD-10) History of carpal tunnel release ?Z98.890 - Other specified postprocedural states (ICD-10) Family History Grandmother Family history of CHF (congestive heart failure) Family history of COPD (chronic obstructive pulmonary disease) Mother Family history of COPD (chronic obstructive pulmonary disease) Family history of cancer Other Family history of lung cancer Social History Within the past year, how often did you have a drink containing alcohol: monthly or less Smoking status: Never smoker Non-prescribed substance use: denies use 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 Highest level of school completed/degree received: some college, no degree Are you now , , , , never or living with a partner: living with partner In a typical week, how many times do you talk on the telephone with family, friends, or neighbors: 3 or more times per week How often do you get together with friends or relatives: 3 or more times per week How often do you attend anabaptism or scientologist services: never Do you belong to any clubs or organizations such as anabaptism groups unions, fraFP Complete or athletic groups, or school groups: no Total score: 2 Score interpretation: A score of greater than or equal to 2 indicates the lowest level of social isolation. Little interest or pleasure in doing things: not at all Feeling down, depressed, or hopeless: not at all Feel stressed/tense/nervous/anxious/difficulty sleeping: not at all Do you think of yourself as: straight/heterosexual Gender Identity: male Meds Home Medications and Allergies Home Medications ?Medication ?Instructions ?Recorded ?Confirmed ?Type omeprazole 20 mg capsule,delayed 40 mg PO DAILY 01/28/23 12/08/23 History release aspirin 81 mg tablet,delayed 81 mg PO DAILY 02/24/23 12/08/23 History release (Adult Aspirin Regimen) warfarin 5 mg tablet 2.5 mg PO DAILY 09/02/23 11/25/23 History warfarin 5 mg tablet 5 mg PO DAILY 09/02/23 12/08/23 History cholecalciferol (vitamin D3) 50 50 mcg PO DAILY 09/16/23 12/08/23 History mcg (2,000 unit) capsule gabapentin 400 mg capsule 400 mg PO DAILY 09/16/23 11/25/23 History gabapentin 400 mg capsule See Rx Instructions .Route 09/16/23 12/08/23 Rx .COMPLEX #150 caps metoprolol succinate 25 mg capsule 25 mg PO DAILY 09/16/23 12/08/23 History sprinkle, ext. release 24 hr spironolactone 25 mg tablet 12.5 mg PO DAILY 09/16/23 12/08/23 History hydrocodone 7.5 mg-acetaminophen 1 tab PO QID PRN pain #110 tabs 10/16/23 12/08/23 Rx 325 mg tablet hydrocodone 7.5 mg-acetaminophen 1 tab PO QID PRN pain #110 tabs 11/27/23 Rx 325 mg tablet metformin 500 mg tablet 500 mg PO DAILY #14 tabs 01/27/24 Rx hydrocodone 7.5 mg-acetaminophen 1 tab PO BID PRN pain #60 tabs 01/28/24 Rx 325 mg tablet hydrocodone 7.5 mg-acetaminophen 1 tab PO BID PRN pain #60 tabs 03/02/24 Rx 325 mg tablet hydrocodone 7.5 mg-acetaminophen 1 tab PO BID PRN pain #50 tabs 04/02/24 Rx 325 mg tablet hydrocodone 7.5 mg-acetaminophen See Rx Instructions .Route 04/29/24 Rx 325 mg tablet .COMPLEX PRN pain #50 tabs hydrocodone 7.5 mg-acetaminophen 1 tab PO BID PRN pain #50 tabs 05/01/24 Rx 325 mg tablet hydrocodone 7.5 mg-acetaminophen 1 tab PO BID PRN pain #50 tabs 05/27/24 Rx 325 mg tablet Allergies Allergy/AdvReac Type Severity Reaction Status Date / Time No Known Drug Allergies Allergy Verified 12/08/23 13:30 Exam Constitutional Documenting provider has reviewed patient's vital signs: yes Common normals: no apparent distress, oriented x3, healthy appearing, alert and well nourished General appearance: cooperative HENMT Common normals: normocephalic, hearing grossly normal bilaterally and moist oral mucous membranes Head and scalp: normocephalic Eye Common normals: PERRL Pupil: PERRL Neck & C-Spine Common normals: full ROM General: normal visual inspection Chest Common normals: inspection of chest normal Respiratory Common normals: normal respiratory effort, no retractions and no use of accessory muscles Back & Pelvis Lumbar spine/lower back: normal to inspection, ROM limited, pain with ROM, lumbar spinal tenderness and straight leg raise negative bilaterally; no paraspinal muscle tenderness Other: positive facet loading, pain over L4-S1 facets sensation intact BLE strength 5/5 in BLE Extremity Common normals: normal to inspection and full ROM Neuro Common normals: oriented x3, CN's II-XII intact bilaterally, moves all extremities, no focal motor deficits, no sensory deficits noted, deep tendon reflexes 2+ bilaterally and gait normal Sensorium/orientation: alert Motor exam: strength 5/5 throughout and no movement abnormalities noted Psych Common normals: mental status grossly normal, thought process normal, cooperative, affect normal, speech normal and activity/motor behavior normal Speech: normal speech Thought process: normal thought process Results Additional Findings Additional findings: If on a controlled substance or opioids, I have checked an [place] report on this patient and there are no aberrancies noted in the prescribing history.??If on a controlled substance or opioid a drug screen was completed and reviewed within the last year, and if there has not been a drug screen completed we ordered one today to monitor higher risk, state monitored pain medication use. As part of providing excellent, safe, comprehensive care, the following was completed at our patient's visit: 1. A medication reconciliation and review to ensure accurate knowledge of current/active medications, including asking our patients to inform us about any glzx-uio-wyyyosp medications or herbal remedies/nutritional supplements/alternative remedies. 2. A review to specifically ensure our patients have had annual screening for screening for depression, screening for tobacco use, and screening for unhealthy alcohol use. For concerning screenings had a discussion with the patient, provided patient education, and recommended follow-up with primary care provider when appropriate. If patient noted with a risk of falling, they received education on strength, gait, and balance training to prevent future risk of falling. Assessment and Plan Assessment and Plan (1) Lumbar spondylosis: Assessment and Plan: The patient has had over 3 months of moderate to severe low back pain with functional impairment and inadequate response to conservative care including NSAIDS (unless there are contraindication such as concurrent blood thinners), multiple oral or topical pain medications, and home exercise program/physical therapy.? Patient has completed >6 weeks of guided home exercise program and/or formal physical therapy program without relief of their symptoms.? I have reviewed the imaging of the lumbar spine and no red flags were identified.? The Oswestry Disability Index was completed, and the patient scored a 34%.? The patient noted the following:?? moderate to severe pain impacting ADLs, ability to sit, ability to stand, ability to walk, sex life, social life, and travel ? We discussed the risks and benefits of the procedure with the patient, and we are NOT planning on using sedation as outlined in the guidelines from Medicare unless there is a documented reason that sedation would be strongly recommended.?? ?The procedure will be completed with fluoroscopic guidance.? (2) Myofascial pain: (3) Encounter for long-term opiate analgesic use: Assessment and Plan: I feel these medications are improving the patient's quality of life and allow them to tolerate activities of daily living as well as participate in recreational activity.? The patient does not report intolerable side effects. The patient is NOT opioid naive and non-pharmacologic and non-opioid treatment has failed to significantly relieve the patient's pain and improve functionality. The patient has a diagnosis that is related to a somatic or visceral pain etiology. ? ?? I reviewed with the patient the potential risks and side effects with the use of? opioid medications including but not limited to respiratory depression,? sedation, and even . I verified the patient has access to naloxone should? these effects occur. I advised the patient to avoid the use of any other? sedation substances including alcohol, THC, and benzodiazepines while? taking opioid medications due to the risk of compounding side effects and? detrimental outcomes. I reviewed the SHAKE TABLE OPERATOR, pain treatment agreement, urine? drug screen, and opioid start talking forms. The patient was advised to let? their family know they had Naloxone in case they would need to administer? the medication.? ?? A drug screen was completed within the last year, and no aberrancies were noted regarding their use of controlled substances. The patient understands they are subject to the terms and conditions of the pain contract that they have signed. ? ?? I have checked an [place]AR[place] report on this patient today and there are no aberrancies noted in the prescribing history.? Plan repeat bilateral L4-5 L5-S1 facet RFA although pt did did not receive greater than 50% improvement for 6 months due to severe infection and health complications I do believe this is the best option for his facet mediated chronic low back pain high risk spinal cord stim case due to obesity, chronic blood thinners, sepsis within the last 12 months increase norco 7.5-325mg BID PRN moderate to severe pain 60 tabs/month, pt has noticed significant impact in his quality of life and functional ability since decreasing. cannot take nsaids as he is on coumadin continue gabapentin and baclofen as ordered continue HEP as tolerated f/u 1 month after RFA
== END 2024-06-04 15:14 | disposition home or self-care (01) ==
LOC: PM 15:14
PROVIDERS: PCP Family Medicine; Visit Provider Nurse Practitioner
DX: M47.816 Spondylosis without myelopathy or radiculopathy, lumbar region (principal); M79.18 Myalgia, other site; Z79.891 Long term (current) use of opiate analgesic
CPT/HCPCS: G0463

== ENCOUNTER 2024-06-22 06:17 | Day surgery (SDC) | payer BC, SELFPAY ==
--- OUTSIDE RECORDS SUMMARY | 2024-06-22 06:21 | XMS_ITS | CCD ---
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 Primary Care Physician Unavaila Nicolasa Barrios Unavailable Unavailable [facility] Primary Care Physician [phone] [facility] Primary Care Provider Pal PAPERHANGER.[facility] Primary Care Provider Pal PAPERHANGER.[facility] Primary Care Provider DR KINGSLEY HERRERA V Consulting Unavailable YRN, DR ARROYO Attending Unavailable YRN, DR ARROYO Admitting Unavailable TOSHA, DR JAYY Marte Consulting Unavailable YRN, DR ARROYO Consulting Unavailable [facility] Referring Unavailable [facility] Primary [facility] Unavailable Kelly Yi Unavailable HAIDER Aguillon Mary Primary Care Provider HAIDER Yi Attending Provider HAIDER Quezada Attending Provider HAIDER Guerrero Primary Care Provider Siri Quezada Unavailable Vonnie Guerrero Primary Care Physician Kandis Amado Unavailable HAIDER Aguillon Primary Care Provider HAIDER Yi Attending Provider HAIDER Quezada Attending Provider HAIDER Guerrero Primary Care Provider [phone] DO Huan Cowan Attending Provider [phone] Katya Harrington Unavailable Unavailable Yolanda, Vonnie L Attending Unavailable Brown, Huan A Admitting Unavailable Brown, Huan A Attending Unavailable Brown, Huan A Admitting Unavailable Brown, Huan A Attending Unavailable Brown, Huan A Admitting Unavailable Brown, Huan A Attending Unavailable Yolanda, Vonnie L Attending [facility]available [facility] Care Unavailable Yrn, Joel L Attending Unavailable Bledsoe, Joel L Admitting Unavailable Yrn, Joel L Admitting Unavailable DEMETRIUS BERNAL [facility] Care Unavailable AMBROSIO WEBER, POLY Almodovar Attending Unavailable Giedraitis , Andrius Vytautas Attending Unavailable Giedraitis , Andrius Vytautas Attending Unavailable Giedraitis MD, Andrius Vytautas Attending Unavailable Giedraitis MD, Andrius Vytautas Attending Unavailable Giedraitis , Andrius Vytautas Attending Unavailable Giedraitis , Andrius Vytautas Attending Unavailable Shehan PAPERHANGER.[facility] Primary Care Provider Demetrius Bernal MD Primary Care Provider [phone] HUAN COWAN Referring Unavailable HUAN COWAN A Attending Unavailable CAMRYN, HUAN A Attending Unavailable BROWN, HUAN A Attending Unavailable BROWN, HUAN A Referring Unavailable BROWN, HUAN A Attending Unavailable BROWN, HUAN A Referring Unavailable Asaad , Ton Attending Provider Demetrius Bernal MD Primary Care Provider [phone] Demetrius Bernal MD Referring Provider Huan Cowan Unavailable Huan Cowan Unavailable Demetrius Bernal Referring Unavailable Asaad, Imad Admitting Unavailable Asaad, Imad Attending Unavailable Demetrius Bernal Primary Care Unavailable Asaad, Imad Admitting Unavailable Asaad, Imad Attending Unavailable Demetrius Bernal Primary Care Unavailable GEROGE, PAUL Admitting Unavailable GEORGE, PAUL Attending Unavailable DRWE THORPE Referring Unavailable CANDICE, Referring Unavailable KULAKOMIKE, ISAIAS Herbert Referring Unavailabl e CANDICE, Referring Unavailable KULAKOWSKI, ISAIAS Herbert Referring Unavailabl e OVITT, NINFA Referring Unavailable OVITT, NINFA Referring Unavailable GEORGE, PAUL Referring Unavailable CANDICE, Referring Unavailable CANDICE, Referring Unavailable KULAKOWSKI, ISAIAS Herbert Referring Unavailabl e GEORGE, PAUL Referring Unavailable KULAKOWSKI, ISAIAS Herbert Referring Unavailabl e GEORGE, APUL Referring Unavailable KULAKOWSKI, ISAIAS Herbert Referring Unavailabl e GEORGE, PAUL Referring Unavailable GEORGE, PAUL Referring Unavailable KULAKOWSKI, ISAIAS Herbert Referring Unavailabl e KULAKOWSKI, ISAIAS Herbert Referring Unavailabl e KULAKOWSKI, ISAIAS Herbert Referring Unavailabl e CANDICE, Referring Unavailable KULAKOMIKE, ISAIAS Herbert Referring Unavailabl e KULAKOWSKI, ISAIAS Herbert Referring Unavailabl e SANAULLAHKOAR Referring Unavailable KULAKOWSGERALDINE, ISAIAS Herbert Referring Unavailabl e KULAKOWSKI, ISAIAS Herbert Referring Unavailabl e CANDICE, Referring Unavailable CANDICE, MAI Referring Unavailable RADHA NAYLOR Attending Unavailable CANDICE, Referring Unavailable ELTAHAWY, EH Attending Unavailable ELTAHAWY, EHAB Attending Unavailable RUPERT ANGELES Attending Unavailable ANNABELLA CHEN Attending Unavailable ROSELYN, ISAIAS Herbert Attending Unavailabl e ANNABELLA CHEN Attending Unavailable CARLEEN MONTALVO Attending Unavailable OVITT, NINFA Attending Unavailable CANDICE, MAI Attending Unavailable ELTAHAWY, EHAB Attending Unavailable ELTAHAWY, EHAB Attending Unavailable GEORGE, PAUL Referring Unavailable GEORGE, PAUL Referring Unavailable CANDICE, Referring Unavailable GORDON NIX Referring Unavailable KULAKOWSKI, ISAIAS Herbert Referring Unavailabl e KULAKOWSKI, ISAIAS Herbert Referring Unavailabl e GEORGE, PAUL Admitting Unavailable GEORGE, PAUL Attending Unavailable DEMETRIUS BERNAL Referring Unavailable KUCHAS, ISAIAS Herbert Referring Unavailabl e GUY SALGADO Referring Unavailable NATALIA AGUILLON Primary Care Unavailable ENTEZARI, GUY Attending Unavailable HUAN COWAN Referring Unavailable NATALIA AGUILLON Primary Care Unavailable GUY SALGADO Referring Unavailable PALNATALIA Primary Care Unavailable Unavailable Primary Care Provider UnavailKEVIN Blankenship Attending Unavailable KEVIN GARSIA Referring Unavailable KEVIN GARSIA Referring Unavailable Allergies Allergy Classification Reported Allergen(s) Allergy Type Date of Onset Reaction(s) Facility Unclassified (1 source) No Known Medication Allergies; Translations: [No Known Medication Allergies] Propensity to adverse reactions to drug (disorder) [facility] Repository (6 sources) atorvastatin; Translations: [ATORVASTATIN] Drug Allergy 4 [facility] (1 source) atorvastatin Drug Allergy 4 Other: See Comments [facility] (1 source) [facility]-D[facility]-RtF Reductase Inhibitor Drug allergy (disorder) 5 [facility] Repository (1 source) ALLERGIES NOT ON FILE; Translations: [ALLERGIES NOT ON FILE] Propensity to adverse reactions (disorder) [facility] Medications Current Medications Medication Drug Class(es) Dates Sig (Normalized) Sig (Original) acetaminophen 500 mg oral tablet (10 sources) Start: 08-02-2020 End: 08-07-2020 take 2 [...] Start: 03-01-2019 take 2 tablets by mo uth every six hours as needed for pain [...] / HYDROcodone bitartrate 7.5 mg oral tablet (8 sources) Opioid Agonist Start: 06-11-2023 Hydrocodone-Ac etaminophen 7.5-325 mg tablet Active 1 TAB PO As Directed as needed for pain June 10, 2023 11:00pm take 1 tablet by júnior th every twelve hours as needed HYDROcodone-Acetaminophen (NORCO) 7.5-32 5 mg per tablet Take 1 tablet by mouth two times a day as needed. Active take 1 tablet by júnior th every four hours as needed HYDROcodone-acetaminophen (L[place]y) 7.5-32 5 MG tablet 1 tablet every [...] needed. amiodarone hydrochloride 200 mg oral tablet (4 sources) Antiarrhythmic amiodarone (Pacerone) 200 MG tablet 1 (one) time each day at the same time. Active aspirin 81 mg delayed release oral tablet (13 sources) Platelet Aggregation Inhibitor, Nonsteroidal Anti-inflammatory Drug Start: 03-01-20 take 1 tablet by mouth once daily Aspirin 81 mg tablet,delayed release (DR/EC) Active 81 MG PO Daily March 02, 2024 12:00am FreeTextSi tablet Orally Once a day; Note: Source Status: Taking; Provider: Damien Horner ( ) Start: 03-01-2019 take 1 tablet by júnior once daily aspirin 81 mg Oral EC Tab 81 mg = 1 tab(s), Oral, Daily, Refills(s) 0, Prophylaxis Start Date: 03/01/19 Status: Ordered bacitracin zinc 0.5 unt/mg t opical ointment (1 source) Start: 08-03-2020 bacitracin oin tment Start: 08-03-2020 bacitracin oin tment baclofen 20 mg oral tablet (8 sources) gamma-Aminobutyric Acid-ergic Agonist Start: 07-11-2023 baclofen 20 mg tablet Take 20 mg by mouth. 07/11/2023 Active Start: 06-11-2023 Baclofen 10 mg tablet Active 10 MG PO As Directed June 10, 2023 11:00pm calcium chloride 0.0014 meq/ml / potassium chloride [...] day(s), # 9 cap(s), Refills(s) 0, Pharmacy: [id number], 185.5, cm, 08/08/21 12:06:00 EDT, Height/Length Dosing, 179.2, kg, 08/08/21 12:06:00 EDT, Weight Dosing Start Date: 08/23/21 Stop Date: 08/26/21 Status: Ordered cholecalciferol 0.05 mg oral tablet (9 sources) Vitamin D Start: 03-02-2024 take 1 tablet by mouth once daily Cholecalciferol (Vitamin D3) 50 mcg (2,000 unit) tablet Active 50 MCG PO Daily March 02, 2024 12:00am FreeTextSi tablet Orally Once a day; Note: Source Status: Taking; Provider: Damien Horner ( ) Cholecalciferol, Vitamin D3, 50 mcg (2,000 unit) cap 1 capsule. Active cholecalciferol (Vitamin D-3) 50 MCG (2000 UT) capsule 1 capsule Active take 1 tablet by júnior th every twenty-four hours Vitamin D3 50 MCG (2000 UT) 1 tablet Ora lly Once a day Active dapagliflozin 10 mg oral tablet (5 sources) Sodium-Glucose Cotransporter 2 Inhibitor Start: 09-26-2023 End: 11-10-2024 dapagliflozin propanediol (FARXIGA) 10 mg tablet Take 10 mg by mouth. 09/26/2023 11/10/2024 Active docusate sodium 100 mg oral capsule (2 sources) Start: 08-23-2021 take 1 capsule by mouth twice daily as needed for constipation Colace 100 mg Cap 100 mg = 1 cap(s), Oral, BID, PRN for constipation, # 20 cap(s), Refills(s) 0, Pharmacy: [id number], 185.5, cm, 08/08/21 12:06:00 EDT, Height/Length [...] Status: Ordered furosemide 40 mg oral tablet (6 sources) Loop Diuretic Start: 07-25-2023 take 1 tablet by mouth every other day furosemide (Lasix) 40 MG tablet Take 40 mg by mouth every other day 07/25/2023 Active take 1 tablet by júnior th once daily in the morning furosemide (LASIX) 40 mg tablet Take 40 mg by mouth every morning. Active gabapentin 400 mg oral capsule (8 sources) Anti-epileptic Agent Start: 03-02-2024 take 1 capsule by mouth twice daily Gabapentin 400 mg capsule Active 400 MG PO Twice daily March 02, 2024 12:00am Start: 08-02-2020 take 300 mg by mouth three times daily 300 mg, Oral, 3 TIMES DAILY, First dose on Sat08/02/20 at 0900 gabapentin (Neur ontin) 800 MG tablet Take 600 mg by mouth in the morning and 600 mg in the evening. Active ibuprofen 600 mg oral tablet (12 sources) Nonsteroidal Anti-inflammatory Drug Start: 08-23-2021 take 1 tablet by mouth every eight hours as needed for pain ibuprofen 600 mg Tab 600 mg = 1 tab(s), Oral, q8hr, PRN as needed for pain, with food or milk, # 60 tab(s), Refills(s) 0, Pharmacy: [id number], 185.5, cm, 08/08/21 12:06:00 EDT, Height/Length [...] 1 tablet by mouth once daily lisinopril (ZESTRIL) 10 mg tablet Indications: Essential hypertension TAKE 1 TABLET BY MOUTH EVERY DAY 90 tablet 1 2022 Active Start: 03-01-2019 End: 04-18-2020 take 1 tablet by mouth once daily lisinopril (ZESTRIL, PRINIVIL) 5 mg tablet Take 5 mg by mouth once daily. 0 11/06/2019 04/18/2020 Discontinued Comment on above: Take 1 tablet by júniro th once daily. TAKE 1 TABLET BY JÚNIOR TH EVERY DAY Take 5 mg by mouth o nce daily. Magnesium (2 sources) take 1 tablet by mouth once daily Magnesium 500 MG 1 tablet with a meal Orally Once a day Active magnesium oxide 500 mg oral tablet (1 source) Start: 03-02-2024 take 1 tablet by mouth once daily Magnesium Oxide 500 mg magnesium tablet Active 500 MG PO Daily March 02, 2024 12:00am FreeTextSi tablet with a meal Orally Once a day; Note: Source Status: Taking; Provider: Damien Horner ( ) 24 hr metoprolol succinate 25 mg extended release oral tablet (7 sources) beta-Adrenergic Fredrick Start: 03-02-2024 take 1 tablet by mouth once daily Metoprolol Succinate 25 mg tablet extended release 24 hr Active 25 MG PO Daily March 02, 2024 12:00am Start: 07-18-2023 End: 02-02-2025 take 1 tablet by mouth every twenty-four hours metoprolol succinate ER (TOPROL XL) 25 mg 24 hr tablet Take 25 mg by mouth. 07/18/2023 02/02/2025 Active Multiple Vitamin (Multi-Vitamin) tablet (4 sources) take 1 tablet by mouth in the morning Multiple Vitamin (Multi-Vitamin) tablet Take 1 tablet by mouth in the morning. Active omeprazole 40 mg delayed release oral capsule (20 sources) Proton Pump Inhibitor Start: 03-23-20 take 1 capsule by mouth once daily Prilosec 20 mg Cap - DR 20 mg, Oral, Daily, Refills(s) 0 Start Date: 03/23/17 Status: Ordered Start: 03-23-2017 take 1 capsule by [facility] once daily Prilosec 20 mg Cap - DR 20 mg, Oral, Daily, Refills(s) 0 Start Date: 03/23/17 Status: Ordered Start: 2016 take 1 capsule by [facility] once daily Omeprazole 40 mg capsule Indications: Gastroesophageal reflux disease, esophagitis presence not specified Take 1 capsule by mouth once daily. 30 capsule 11 2016 Active take 1 tablet by [facility] once daily PriLOSEC OTC 20 MG 1 tablet 30 minutes before morning meal Orally Once a day Active End: 07-25-2021 Omeprazole Magnesium (PRILOS EC OTC) 20 mg tablet 2 tablet 0 07/25/2021 Discontinued (Discontinued by Patient) Comment on above: Take 1 capsule by [facility] once daily. 2 tablet Omeprazole Magnesium (Prilosec Otc) 20 mg tablet,delayed release (DR/EC) (1 source) Start: 4 take 1 tablet by mouth once daily Omeprazole Magnesium (Prilosec Otc) 20 mg tablet,delayed release (DR/EC) Active 20 MG PO Daily March 02, 2024 12:00am ondansetron (ZOFRAN-ODT) disintegrating tablet 4 mg (1 [...] Starting 08/01/20 at 2358 polyethylene glycol 3350 63000 mg powder for oral solution (1 source) Osmotic Laxative Start: 08-01-2020 17 g, Oral, D AILY PRN, Constipation, Starting 08/01/20 at 2358 First line therapy for constipation polyethylene glycol 3350 849614 mg / potassium chloride 2970 mg / sodium bicarbonate 6740 mg / sodium chloride 5860 mg / sodium sulfate 41599 mg powder for oral solution (15 sources) Osmotic Laxative Start: 03-17-2024 Peg 3350-Elec trolytes (Golytely) 236-22.74-6.74 -5.86 gram recon soln Active 240 ML PO Q10M 4000 March 17, 2024 12:00am until fecal effluent is clear Start: 07-25-2021 End: 09-22-2021 peg 3350-Electrolytes (GOLYT GARY) 236-22.74-6.74 -5.86 gram suspension Indications: Screening for colon cancer Refer to printed prep instructions from your provider. 4000 mL 0 07/25/2021 09/22/2021 Discontinued Comment on above: Refer to printed pre p instructions from your provider. microencapsulated potassium chloride 20 meq extended release oral tablet (4 sources) Start: 07-05-19 potassium chloride CR (Klor-Con M20) 20 MEQ ER tablet Take 20 mEq by mouth in the morning. 07/05/2023 Active rosuvastatin calcium 40 mg oral tablet (7 sources) HMG-CoA Reductase Inhibitor Start: 08-21-19 take 1 tablet by mouth once daily rosuvastatin (CRESTOR) 40 mg tablet Take 1 tablet by mouth once daily. 90 tablet 1 08/20/2022 Active Comment on above: Take 1 tablet by júnior once daily. Sod Picosulf-Mag Ox-Citric Ac (1 source) Start: 02-11-20 Sod Picosulf-Mag Ox-Citric Ac (Clenpiq) 10 mg-3.5 gram- 12 gram/175 mL solution Active 175 ML PO Daily 350 February 11, 2024 12:00am take first dose at 3:00 PM followed by four 8oz glasses of liquid take second dose at 9:00 PM followed by 3 8oz glasses of liquid 125 ml sodium chloride 9 mg/ml prefilled syringe (20 sources) Start: 08-11-19 End: 08-11-20 23 sodium chloride 0.9 % (flush) 10 mL [...] Midline or Central Line = 20 mL/lumen spironolactone 25 mg oral tablet (6 sources) Aldosterone Antagonist Start: 03-02-2024 take 1 tablet by mouth twice daily Spironolactone 25 mg tablet Active 25 MG PO Twice daily March 02, 2024 12:00am take 1 tablet by mouth once olga y spironolactone (ALDACTONE) 25 mg tablet take 1 tablet by mouth once a day as directed Active Stress 500 B-Complex - (2 sources) Stress 500 B-Com plex - as directed Orally Active valsartan 40 mg oral tablet (5 sources) Angiotensin 2 Receptor Fredrick Start: 4 valsartan (DIOVAN) 40 mg tablet Take 40 mg by mouth. 09/07/2023 Active Vitamin B Complex oral capsule (6 sources) Start: 2 Vitamin B Complex oral capsule 1 cap(s), Oral, Daily, 30 cap(s), Refill(s) 0, Prophylaxis Start Date: 08/08/21 Status: Ordered Vitamin D 1000 intl units (25 mcg) Tab (6 sources) Start: 2 take 2 tablets by mouth once daily [...] Start Date: 08/08/21 Status: Ordered warfarin sodium 1 mg oral tablet (7 sources) Vitamin K Antagonist Start: 03-02-2024 take 1 tablet by mouth once daily Warfarin (Jantoven) 1 mg tablet Active 1 MG PO Daily March 02, 2024 12:00am Start: 07-05-2023 warfarin (COUM CIARA) 5 mg tablet Take 5mg daily, or as directed by the anticoagulation service provider. Dose may change, based on INR results. 07/05/2023 Active Zinc (1 source) take 1 tablet by júnior th once daily Zinc 30 MG 1 tablet Orally Once a day Active zinc gluconate 30 mg oral tablet (1 source) take 1 tablet by júnior th every twenty-four hours Zinc 30 MG 1 tablet Orally Once a day Active Completed/Discontinued Medications Medication Drug Class(es) Dates Sig (Normalized) Sig (Original) acetaminophen 325 mg / oxyCODONE hydrochloride 5 mg oral tablet (2 sources) Opioid Agonist Start: 08-23-2021 Percocet 325 mg-5 mg Tab See Instructions, as needed for pain, 40 tab(s), Refill(s) 0, 1-2 tab(s) Oral q4hr, [id number], 185.5, cm, 08/08/21 12:06:00 EDT, [...] autopap titration study. Please fax results to [phone]. DX: JACOBY G47.33 1 Each 0 11/08/2016 09/13/2020 Discontinued Comment on above: Please perform autop ap titration study. Please fax results to [phone]. DX: JACOBY G47.33 doxepin hydrochloride 10 mg [...] (ISOVUE-370) 76 % injection 75 mL lidocaine 0.05 mg/mg medicated patch (3 sources) Antiarrhythmic, Amide Local Anesthetic Start: 06-11-2023 End: 03-02-2024 Lidocaine 5 % adhesive patch,medicated Discontinued PATCH TOPICAL June 10, 2023 11:00pm March 02, 2024 9:49am Start: 06-11-2023 Lidocaine Acti ve PATCH TOPICAL June 11, 2023 12:00am Start: [...] Comment on above: Take 2 tablets by mo [facility] daily with dinner. methocarbamol 750 mg oral tablet (5 sources) Muscle Relaxant Start: End: take 2 tablets by mouth every eight hours methocarbamol (Robaxin) 750 MG tablet Take 1,500 mg by mouth every 8 (eight) hours 07/05/2023 02/04/2024 Discontinued (Therapy completed) Start: 08-02-2020 End: 08-12-2020 take 1 tablet by mouth four times daily methocarbamol (ROBAXIN) 750 MG tablet Take 1 tablet by mouth 4 times daily for 10 days 40 tablet 0 08/02/2020 08/12/2020 Active 1 ml morphine sulfate 4 mg/ml cartridge [...] NaCl (PF) 0.9% 10 mL injection (DEFINITY) predniSONE 10 mg oral tablet (6 sources) Start: 06-11-2023 End: 03-02-2024 Prednisone 10 mg tablet Discontinued 10 MG PO June 10, 2023 11:00pm March 02, 2024 9:49am Start: 12-16-2022 take 1 tablet by júnior th every twelve hours predniSONE 20 MG 1 tablet Orally bid for 5 day(s) Nov, Not-Taking/PRN traMADol hydrochloride 50 mg oral tablet (2 sources) Opioid Agonist Start: 06-11-2023 End: 03-02-2024 Tramadol 50 mg tablet Discontinued 50 MG PO June 10, 2023 11:00pm March 02, 2024 9:50am traZODone hydrochloride 100 mg oral tablet (4 [...] source) Personal history of urinary calculi Episodic Complication of device; implant or graft (4 sources) Prosthetic joint infection; Translations: [Infection and inflammatory reaction due to unspecified internal joint prosthesis, initial encounter] Onset: 5 04-20-2024 Episodic Coronary atherosclerosis and other heart disease (2 sources) Atherosclerotic heart disease of [place] coronary artery without angina pectoris; Translations: [Atherosclerotic heart disease of [place] coronary artery without angina pectoris] Onset: 4 Chronic Diabetes mellitus without complication (5 sources) Diabetes mellitus 08-23-2021 Chronic Diabetes mellitus without complication (20 sources) Impaired fasting glycemia; Translations: [Impaired fasting glucose] Onset: 2 Episodic Disorders of lipid metabolism (20 sources) Mixed [...] Presence of prosthetic heart valve; Translations: [Nonrheumatic aortic (valve) insufficiency] Onset: 4 Chronic Hypertension with [...] disease, unspecified Chronic Other connective tissue disease (11 sources) History of left shoulder arthroplasty; Translations: [Presence of left artificial shoulder joint] Onset: 2 02-15-2022 Chronic Other connective tissue disease (2 sources) Presence of left artificial shoulder joint; Translations: [Presence of left artificial shoulder joint] Onset: 5 Chronic Other connective tissue disease (1 source) Achilles tendinitis, left leg Episodic Other connective tissue disease (1 source) Calcaneal spur, left foot Episodic Other connective tissue disease (3 sources) Nontraumatic rotator cuff tear; Translations: [Unspecified rotator cuff tear or rupture of left shoulder, not specified as traumatic] Onset: 5 04-20-2024 Episodic Other connective tissue disease (1 source) Unspecified rotator cuff tear or rupture of left shoulder, not specified as traumatic; Translations: [Nontraumatic tear of left rotator cuff, unspecified tear extent] Onset: 5 Episodic Other diseases of veins and lymphatics (2 sources) Lymphedema; Translations: [Lymphedema, not elsewhere classified] Chronic Other diseases of veins and lymphatics (1 source) Lymphedema, not elsewhere classified Chronic Other gastrointestinal disorders (1 source) Alteration in bowel elimination; Translations: [Change in bowel habit] Episodic Other gastrointestinal disorders (2 sources) Dark stools; Translations: [Other fecal abnormalities] Episodic Other gastrointestinal disorders (1 source) Other fecal abnormalities; Translations: [Other fecal abnormalities] Onset: 4 Episodic Other injuries and conditions due to external causes (1 source) Personal history of other (healed) physical injury and trauma Episodic Other liver diseases (20 sources) Steatosis of liver; Translations: [Fatty (change of) liver, not elsewhere classified] Onset: 2 Chronic Other liver diseases (2 sources) Elevated liver enzymes level; Translations: [Abnormal levels of other serum enzymes] Episodic Other lower respiratory disease (2 sources) [...] to trauma] Chronic Other nervous system disorders (12 sources) Chronic pain due to injury; Translations: [Chronic pain due to trauma] Onset: 2 02-15-2022 Chronic Other nervous system disorders (3 sources) Chronic pain; Translations: [Other chronic pain] 06-11-2023 Chronic Other nervous system disorders (2 sources) Other chronic pain; Translations: [Other chronic pain] Chronic Other nervous system disorders (1 source) Paresthesia; Translations: [Paresthesia of skin] 01-07-2020 Episodic Other non-traumatic joint disorders (6 sources) Shoulder pain 09-18-2013 Episodic Other non-traumatic joint disorders (11 sources) Pain in left shoulder; Translations: [Pain in joint, shoulder region] Onset: 5 12-17-2019 Episodic Other non-traumatic joint disorders (1 [...] (3 sources) Body mass index (BMI) 50.0-59.9, adult Chronic Other nutritional; endocrine; and metabolic disorders (1 source) Obesity, unspecified Chronic Other nutritional; endocrine; and metabolic disorders (3 sources) Abnormal weight gain; Translations: [Abnormal weight gain] Episodic Other screening for suspected conditions (not mental disorders or infectious disease) (3 sources) Patient encounter status; Translations: [Encounter for screening for malignant neoplasm of colon] Onset: 5 Episodic Residual codes; unclassified (20 sources) Obstructive sleep apnea syndrome; Translations: [Obstructive sleep apnea (adult) (pediatric)] Onset: 1 03-10-2021 Chronic Residual codes; unclassified (3 sources) Obstructive sleep apnea (adult) (pediatric); Translations: [Obstructive sleep apnea (adult) (pediatric)] Onset: 4 Chronic Residual codes; unclassified (6 sources) Sleep disorder 08-26-2012 Episodic Spondylosis; intervertebral disc disorders; other back problems (10 sources) Disorder of lumbar disc; Translations: [Unspecified thoracic, thoracolumbar and lumbosacral intervertebral disc disorder] Onset: 4 06-11-2023 Chronic Spondylosis; intervertebral disc disorders; other back problems (6 sources) Radiculopathy, lumbar region; Translations: [Spinal stenosis, cervical region] Episodic Unclassified (6 sources) Patient encounter status 01-09-2023 Unclassified (1 source) Other pericardial effusion (noninflammatory); Translations: [Other pericardial effusion (noninflammatory)] Onset: 4 Unclassified (1 source) Acute cough; Translations: [Acute cough] Onset: 4 Unclassified (1 source) Supraventricular tachycardia, unspecified; Translations: [Supraventricular tachycardia, unspecified] Onset: 4 Unclassified (2 sources) Hospital Follow-up; Translations: [Hospital Follow-up] Onset: 4 Unclassified (2 sources) New Patient Onset: 4 Unclassified (4 sources) Left shoulder pain, unspecified chronicity 05-12-2024 Past or Other Problems Problem Classification Problem Date Documented Date Episodic/Chronic Allergic reactions (20 sources) Environmental allergy; Translations: [Other allergy status, other than to drugs and biological substances] Onset: 03-10-2021 03-10-2021 Episodic Bacterial infection; unspecified site (2 sources) Bacteremia; Translations: [Bacteremia] Onset: 06-28-2023 Episodic Conditions associated with dizziness or vertigo (20 sources) Lightheadedness; Translations: [Dizziness and giddiness] Onset: 11-26-2019 11-26-2019 Episodic Crushing injury or internal injury (20 sources) Hematomediastinum; Translations: [Contusion of other specified intrathoracic organs, initial encounter] Onset: 08-01-2020 Episodic Neoplasms of unspecified nature or uncertain behavior (2 sources) Neoplasm of unspecified behavior of bone, soft tissue, and skin; Translations: [Neoplasm of unspecified behavior of bone, soft tissue, and skin] Onset: 09-26-2023 Episodic Other and unspecified benign neoplasm (11 sources) History of polyp of colon; Translations: [Personal history of colonic polyps] Onset: 11-17-2022 11-17-2022 Episodic Other lower respiratory disease (20 sources) Multiple nodules of lung; Translations: [Other nonspecific abnormal finding of lung field] Onset: 03-10-2021 03-10-2021 Episodic Other lower respiratory disease (20 sources) Dyspnea; Translations: [Shortness of breath] Onset: 03-10-2021 03-10-2021 Episodic Other lower respiratory disease (20 sources) Wheezing; Translations: [Wheezing] Onset: 03-10-2021 03-10-2021 Episodic Other non-traumatic joint disorders (20 sources) Multiple joint pain; Translations: [Pain in unspecified joint] Onset: 11-26-2019 11-26-2019 Episodic [place]-; endo-; and myocarditis; cardiomyopathy (except that caused by tuberculosis or sexually transmitted disease) (2 sources) Acute and subacute infective endocarditis; Translations: [Acute and subacute infective endocarditis] Onset: 06-21-2023 Episodic Residual codes; unclassified (20 sources) Postoperative [...] Test Name Value Interpretation Reference Range Facility CT SHOULDER LEFT WO IV CONTR Kyle 05-27-2024 CT SHOULDER LEFT WO IV CONTRAST Interpreted By: Estiven Garcia, STUDY: CT SHOULDER LEFT WO IV CONTRAST; ; 05/27/2024 3:18 pm INDICATION: Signs/Symptoms:painful left shoulder replacement. ,M25.512 Pain in left shoulder,Z96.612 Presence of left artificial shoulder joint COMPARISON: Plain film radiographs left shoulder performed on May 12, 2024 ACCESSION NUMBER(S): [id number] ORDERING CLINICIAN: KEVIN GARSIA TECHNIQUE: Multiple thin-section axial images left shoulder reconstructed in the sagittal and coronal plane without contrast. Artifact reduction technique utilized for the patient's shoulder arthroplasty hardware. FINDINGS: Postsurgical changes of left total shoulder arthroplasty. Both the glenoid and humeral components of a grossly satisfactory appearance. There is no significant osteolysis. No osseous lucency. No periprosthetic fracture. There is no evidence of a soft tissue mass. No focal fluid collections. There is no evidence of significant muscular attenuation change. Mild degenerative changes of the acromioclavicular joint with an os acromiale. Limited assessment of the rotator cuff demonstrates no findings highly suggestive of tear. IMPRESSION: Satisfactory appearance left total shoulder arthroplasty. 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 MACRO: None Signed by: Estiven Garcia 05/27/2024 5:04 PM Dictation workstation: [id number] [facility] Comment on above: Order Comment: Metal subtraction CT Shoulder - left WO contra ston 05-27-2024 Satisfactory appeara nce left total shoulder arthroplasty. 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 MACRO: None Signed by: Estiven Garcia 05/27/2024 5:04 PM Dictation workstation: [id number] [facility]AL Interpreted By: Estiven Maldonado, STUDY: CT SHOULDER LEFT WO IV CONTRAST; ; 05/27/2024 3:18 pm INDICATION: Signs/Symptoms:painful left shoulder replacement. ,M25.512 Pain in left shoulder,Z96.612 Presence of left artificial shoulder joint COMPARISON: Plain film radiographs left shoulder performed on May 12, 2024 ACCESSION NUMBER(S): [id number] ORDERING CLINICIAN: KEVIN GARSIA TECHNIQUE: Multiple thin-section axial images left shoulder reconstructed in the sagittal and coronal plane without contrast. Artifact reduction technique utilized for the patient's shoulder arthroplasty hardware. FINDINGS: Postsurgical changes of left total shoulder arthroplasty. Both the glenoid and humeral components of a grossly satisfactory appearance. There is no significant osteolysis. No osseous lucency. No periprosthetic fracture. There is no evidence of a soft tissue mass. No focal fluid collections. There is no evidence of significant muscular attenuation change. Mild degenerative changes of the acromioclavicular joint with an os acromiale. Limited assessment of the rotator cuff demonstrates no findings highly suggestive of tear. [facility] Estiven Garcia MD - 05/27/2024 Interpreted By: Estiven Garcia, STUDY: CT SHOULDER LEFT WO IV CONTRAST; ; 05/27/2024 3:18 pm INDICATION: Signs/Symptoms:painful left shoulder replacement. ,M25.512 Pain in left shoulder,Z96.612 Presence of left artificial shoulder joint COMPARISON: Plain film radiographs left shoulder performed on May 12, 2024 ACCESSION NUMBER(S): [id number] ORDERING CLINICIAN: KEVIN GARSIA TECHNIQUE: Multiple thin-section axial images left shoulder reconstructed in the sagittal and coronal plane without contrast. Artifact reduction technique utilized for the patient's shoulder arthroplasty hardware. FINDINGS: Postsurgical changes of left total shoulder arthroplasty. Both the glenoid and humeral components of a grossly satisfactory appearance. There is no significant osteolysis. No osseous lucency. No periprosthetic fracture. There is no evidence of a soft tissue mass. No focal fluid collections. There is no evidence of significant muscular attenuation change. Mild degenerative changes of the acromioclavicular joint with an os acromiale. Limited assessment of the rotator cuff demonstrates no findings highly suggestive of tear. IMPRESSION: Satisfactory appearance left total shoulder arthroplasty. 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 MACRO: None Signed by: Estiven Garcia 05/27/2024 5:04 PM Dictation workstation: [id number] [facility] Work Phone: Radiology Study observation (narrative) [facility] Work Phone: CT Shoulder - left WO contra stOrdered By: Estiven Garcia on 05-27-2024 [facility] Work Phone: XR SHOULDER LEFT 2+ VIEWSon 05-12-2024 XR SHOULDER LEFT 2+ VIEWS Interpreted By: Estiven Garcia, STUDY: XR SHOULDER LEFT 2+ VIEWS INDICATION: Signs/Symptoms:PAIN. COMPARISON: May 12, 2024 ACCESSION NUMBER(S): [id number] ORDERING CLINICIAN: KEVIN GARSIA FINDINGS: Left total shoulder arthroplasty without fracture, malalignment, or periprosthetic lucency. IMPRESSION: Satisfactory appearance left shoulder arthroplasty. Signed by: Estiven Garcia 05/13/2024 6:10 PM Dictation workstation: [id number] Normal [facility] Orders Onlyon 04-27-2024 Orders Only Normal [facility] Bacteria Fld Culton 04-20-19 25 Bacteria identified Cx Nom (Body fld) CULTURE, BODY FLD: No growth GRAM STAIN: No organisms seen No Polymorphonuclear Leukocytes Gram stain from primary specimen Normal [facility] Comment on above: Performed By: #### 6 11-4 #### [facility] CLIA [id number] [address] [place] [address] [place] CBC W Auto Differential pane l (Bld)on 04-20-2024 Basophils (Bld) [#/Vol] 0.06 10*3/uL [facility] Basophils/100 WBC (Bld) 0.6 % [facility] Differential cell count method Nom (Bld) Auto [facility] Eosinophils (Bld) [#/Vol] 0.21 10*3/uL [facility] Eosinophils/100 WBC (Bld) 2.1 % [facility] Erythrocyte distribution width (RBC) [Ratio] 12.7 % 11.5 - 15.0 % [facility] Hematocrit (Bld) [Volume fraction] 47.8 % 39.0 - 51.0 % [facility] Hemoglobin (Bld) [Mass/Vol] 15.5 g/dL 13.0 - 17.0 g/dL [facility] Immature granulocytes (Bld) [#/Vol] 0.06 10*3/uL [facility] Immature granulocytes/100 WBC (Bld) 0.6 % [facility] Lymphocytes (Bld) [#/Vol] 1.60 10*3/uL [facility] Lymphocytes/100 WBC (Bld) 16.0 % [facility] MCH (RBC) [Entitic mass] 28.2 pg 26.0 - 34.0 pg [facility] MCHC (RBC) [Mass/Vol] 32.4 g/dL 30.5 - 36.0 g/dL [facility] MCV (RBC) [Entitic vol] 87.1 fL 80.0 - 100.0 fL [facility] Monocytes (Bld) [#/Vol] 0.62 10*3/uL [facility] Monocytes/100 WBC (Bld) 6.2 % [facility] Neutrophils (Bld) [#/Vol] 7.44 10*3/uL [facility] Neutrophils/100 WBC (Bld) 74.5 % [facility] Nucleated RBC (Bld) [#/Vol] NINF [facility] Nucleated RBC/100 WBC (Bld) [Ratio] 0.0 % /100 WBC [facility] Platelet mean volume (Bld) [Entitic vol] 10.8 fL 9.0 - 12.7 fL [facility] Platelets (Bld) [#/Vol] 205 10*3/uL [facility] RBC (Bld) [#/Vol] 5.49 10*6/uL 4.20 - 6.0 0 m/uL [facility] WBC (Bld) [#/Vol] 9.99 10*3/uL [facility] Basophils (Bld) [#/Vol] 0.06 10*3/uL Normal <0.11 [facility] Comment on above: Order Comment: Speci men Type: BLOOD SPECIMEN Ordering Facility: [facility] Address: [address] [place] [address] Performed By: #### 4 537-7, 98466-1 #### [facility] CLIA [id number] [address] [place] [address] [place] Basophils/100 WBC (Bld) 0.6 % Normal [facility] Comment on above: Order Comment: Speci men Type: BLOOD SPECIMEN Ordering Facility: [facility] Address: [address] [place] [address] Performed By: #### 4 537-7, 81398-5 #### [facility] CLIA [id number] [address] [place] [address] [place] Differential cell count method Nom (Bld) Auto Normal [facility] Comment on above: Order Comment: Speci men Type: BLOOD SPECIMEN Ordering Facility: [facility] Address: [address] [place] [address] Performed By: #### 4 537-7, 61620-5 #### [facility] CLIA [id number] [address] [place] [address] [place] Eosinophils (Bld) [#/Vol] 0.21 10*3/uL Normal <0.46 [facility] Comment on above: Order Comment: Speci men Type: BLOOD SPECIMEN Ordering Facility: [facility] Address: [address] [place] [address] Performed By: #### 4 537-7, 22062-5 #### [facility] CLIA [id number] [address] [place] [address] [place] Eosinophils/100 WBC (Bld) 2.1 % Normal [facility] Comment on above: Order Comment: Speci men Type: BLOOD SPECIMEN Ordering Facility: [facility] Address: [address] [place] [address] Performed By: #### 4 537-7, 95910-5 #### [facility] CLIA [id number] [address] [place] [address] [place] Erythrocyte distribution width (RBC) [Ratio] 12.7 % Normal 11.5-15.0 [facility] Comment on above: Order Comment: Speci men Type: BLOOD SPECIMEN Ordering Facility: [facility] Address: [address] [place] [address] Performed By: #### 4 537-7, 02727-1 #### [facility] CLIA [id number] [address] [place] [address] [place] Hematocrit (Bld) [Volume fraction] 47.8 % Normal 39.0-51.0 [facility] Comment on above: Order Comment: Speci men Type: BLOOD SPECIMEN Ordering Facility: [facility] Address: [address] [place] [address] Performed By: #### 4 537-7, 77195-7 #### [facility] CLIA [id number] [address] [place] [address] [place] Hemoglobin (Bld) [Mass/Vol] 15.5 g/dL Normal 13.0-17.0 [facility] Comment on above: Order Comment: Speci men Type: BLOOD SPECIMEN Ordering Facility: [facility] Address: [address] [place] [address] Performed By: #### 4 537-7, 69944-9 #### [facility] CLIA [id number] [address] [place] [address] [place] Immature granulocytes (Bld) [#/Vol] 0.06 10*3/uL Normal <0.10 [facility] Comment on above: Order Comment: Speci men Type: BLOOD SPECIMEN Ordering Facility: [facility] Address: [address] [place] [address] Performed By: #### 4 537-7, 04285-2 #### [facility] CLIA [id number] [address] [place] [address] [place] Immature granulocytes/100 WBC (Bld) 0.6 % Normal [facility] Comment on above: Order Comment: Speci men Type: BLOOD SPECIMEN Ordering Facility: [facility] Address: [address] [place] [address] Performed By: #### 4 537-7, 69900-2 #### [facility] CLIA [id number] [address] [place] [address] [place] Lymphocytes (Bld) [#/Vol] 1.60 10*3/uL Normal 1.00-4.00 [facility] Comment on above: Order Comment: Speci men Type: BLOOD SPECIMEN Ordering Facility: [facility] Address: [address] [place] [address] Performed By: #### 4 537-7, 07111-2 #### [facility] CLIA [id number] [address] [place] [address] [place] Lymphocytes/100 WBC (Bld) 16.0 % Normal [facility] Comment on above: Order Comment: Speci men Type: BLOOD SPECIMEN Ordering Facility: [facility] Address: [address] [place] [address] Performed By: #### 4 537-7, 52965-6 #### [facility] CLIA [id number] [address] [place] [address] [place] MCH (RBC) [Entitic mass] 28.2 pg Normal 26.0-34.0 [facility] Comment on above: Order Comment: Speci men Type: BLOOD SPECIMEN Ordering Facility: [facility] Address: [address] [place] [address] Performed By: #### 4 537-7, 64753-8 #### [facility] CLIA [id number] [address] [place] [address] [place] MCHC (RBC) [Mass/Vol] 32.4 g/dL Normal 30.5-36.0 [facility] Comment on above: Order Comment: Speci men Type: BLOOD SPECIMEN Ordering Facility: [facility] Address: [address] [place] [address] Performed By: #### 4 537-7, 52130-6 #### [facility] CLIA [id number] [address] [place] [address] [place] MCV (RBC) [Entitic vol] 87.1 fL Normal 80.0-100.0 [facility] Comment on above: Order Comment: Speci men Type: BLOOD SPECIMEN Ordering Facility: [facility] Address: [address] [place] [address] Performed By: #### 4 537-7, 42837-4 #### [facility] CLIA [id number] [address] [place] [address] [place] Monocytes (Bld) [#/Vol] 0.62 10*3/uL Normal <0.87 [facility] Comment on above: Order Comment: Speci men Type: BLOOD SPECIMEN Ordering Facility: [facility] Address: [address] [place] [address] Performed By: #### 4 537-7, 67693-0 #### [facility] CLIA [id number] [address] [place] [address] [place] Monocytes/100 WBC (Bld) 6.2 % Normal [facility] Comment on above: Order Comment: Speci men Type: BLOOD SPECIMEN Ordering Facility: [facility] Address: [address] [place] [address] Performed By: #### 4 537-7, 40730-7 #### [facility] CLIA [id number] [address] [place] [address] [place] Neutrophils (Bld) [#/Vol] 7.44 10*3/uL Normal 1.45-7.50 [facility] Comment on above: Order Comment: Speci men Type: BLOOD SPECIMEN Ordering Facility: [facility] Address: [address] [place] [address] Performed By: #### 4 537-7, 96241-2 #### [facility] CLIA [id number] [address] [place] [address] [place] Neutrophils/100 WBC (Bld) 74.5 % Normal [facility] Comment on above: Order Comment: Speci men Type: BLOOD SPECIMEN Ordering Facility: [facility] Address: [address] [place] [address] Performed By: #### 4 537-7, 41764-9 #### [facility] CLIA [id number] [address] [place] [address] [place] Nucleated RBC (Bld) [#/Vol] 10*3/uL Normal <0.01 [facility] Comment on above: Order Comment: Speci men Type: BLOOD SPECIMEN Ordering Facility: [facility] Address: [address] [place] [address] Performed By: #### 4 537-7, 98054-4 #### [facility] CLIA [id number] [address] [place] [address] [place] Nucleated RBC/100 WBC (Bld) [Ratio] 0.0 /100 WBC Normal [facility] Comment on above: Order Comment: Speci men Type: BLOOD SPECIMEN Ordering Facility: [facility] Address: [address] [place] [address] Performed By: #### 4 537-7, 61684-4 #### [facility] CLIA [id number] [address] [place] [address] [place] Platelet mean volume (Bld) [Entitic vol] 10.8 fL Normal 9.0-12.7 [facility] Comment on above: Order Comment: Speci men Type: BLOOD SPECIMEN Ordering Facility: [facility] Address: [address] [place] [address] Performed By: #### 4 537-7, 42994-2 #### [facility] CLIA [id number] [address] [place] [address] [place] Platelets (Bld) [#/Vol] 205 10*3/uL Normal 150-400 [facility] Comment on above: Order Comment: Speci men Type: BLOOD SPECIMEN Ordering Facility: [facility] Address: [address] [place] [address] Performed By: #### 4 537-7, 26299-2 #### [facility] CLIA [id number] [address] [place] [address] [place] RBC (Bld) [#/Vol] 5.49 10*6/uL Normal 4.20-6.00 [facility] Comment on above: Order Comment: Speci men Type: BLOOD SPECIMEN Ordering Facility: [facility] Address: [address] [place] [address] Performed By: #### 4 537-7, 00246-3 #### [facility] CLIA [id number] [address] [place] [address] [place] WBC (Bld) [#/Vol] 9.99 10*3/uL Normal 3.70-11.00 [facility] Comment on above: Order Comment: Speci men Type: BLOOD SPECIMEN Ordering Facility: [facility] Address: [address] [place] [address] Performed By: #### 4 537-7, 51045-5 #### [facility] CLIA [id number] [address] [place] [address] [facility] CNOVon 04-20-2024 CNOV Office Visit (ORTHMN ) -- NEHAL BAIG ([id number]) 1970 M Date Time Provider Department 04/20/24 2:30 PM GUY SALGADO During your visit today, we recorded the following information about you: Guy Salgado MD 04/20/2024 4:00 PM Signed Guy HernándezMMarinaSc. Residential Property Consultant of Orthopaedic Surgery at [place] [address] Office: [phone] Consult requested for an opinion regarding the evaluation and treatment of the above patient. My final impression and recommendations will be communicated back to the requesting physician by way of the shared medical record or letter via [place] mail. Patient info: Nehal Baig ([id number]) Service date: 04/20/2024 Referred by: DO Shashank Jeter [facility] [address] PCP: RAD [place] Chief Complaint: Left shoulder pain. HPI:Nehal Baig is a 53 year old [id number] male who comes in for second opinion regarding his left shoulder. Patient previous underwent left total shoulder arthroplasty in 2021 by outside provider. He states that during rehab he did feel a pop in his shoulder at 1 point which caused some pain and difficulty but then progressed firing. He states that over the last year he has been having lateral and anterior based pain. He has been followed by his primary surgeon who ordered an MRI to evaluate for cuff integrity but this was limited secondary to artifact from patient's body habitus. He states that he did not have any antibiotics after the surgery. He does mention that last spring after an Achilles tendon repair he supposedly had a infection which was found on positive blood cultures. No wound issues. 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 Patient subsequently underwent open heart surgery with valve replacement last spring. He states that the cultures were positive for granulicatella adiacens. He was sent on IV antibiotics at home. He states that he has just had persistent pain in his shoulder and his primary surgeon sent him here today for second opinion. 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 Anticoagulated on Coumadin. Nehal reports a current pain level of 5 (Shoulder-Left). He describes the pain as Sore. The pain is Continuous, and has lasted for 1 Years. Interventions tried include Medication. He was last seen in orthopaedic clinic for his shoulder/upper arm on 02/19/2020 with Alonso Arboleda. Most recent shoulder imaging was completed on 04/20/2024 (XR SHOULDER GENERAL 3V OR MORE AP/TRUE AP/OTHER LEFT) . The most recent shoulder injection was Large Joint Arthro/Inj: L subacromial bursa, injected on 02/19/2020 by Alonso Arboleda. In the past (based on all medication history on file), Nehal has tried the following anti-inflammatory medications (not necessarily for this reason for visit): prednisone, triamcinolone acetonide. PAIN EVALUATION 04/07/2024 1116 04/20/2024 0830 Pain Level: 6 5 Pain Location: -- Shoulder-Left Description: Sore Sore Duration Amount of Time: -- 1 Duration Units: Days Years Frequency: Continuous Continuous Intervention/Comfort measure: Medication Medication Other pertinent Hx: Employer And Job Title: None on file Years Of Education Completed: Not specified Marital Status: BWC: no Physical Therapy: yes Corticosteroid Injections: Orthopaedic Injections (up to last 5) 02/19/2020 13:29 10/24/2020 11:11 Orthopaedic Injection History Location shoulder Shoulder Site L subacromial bursa Medication 40 mg triamcinolone acetonide 40 mg/mL 40 mg triamcinolone acetonide 40 mg/mL History of Smoking: Not specified History of frequent fall: no How many falls in the past 1 year: 0 Prior treatments: PT Greater Than 3 Months Modified Activity REVIEW OF SYMPTOMS: Constitutional: Any recent fevers? Negative Cardiovascular: Any chest pain? Negative Respiratory: Any shortness or breath? Negative Gastrointestinal: Any abdominal discomfort? Negative Integumentary: Any recent skin changes or rashes? Negative Neurologic: Any numbness or tingling? Negative Endocrine: Any diagnosis of diabetes? Negative Hematologic: Any recent bleeding episodes? Negative FAMILY HISTORY Problem Relation Age of Onset COPD Mother Smoker Allergies Mother Lung Cancer Mother 72 other (Epilepsy) Father other (GERD) Brother Asthma No Family History DVT No Family History PAST MEDICAL HISTORY Diagnosis Date Anxiety HTN (hypertension) Mixed hyperlipidemia Obstructive sleep apnea syndrome 03/10/2021 Ruptured triceps tendon Left S (more content not included)... Normal [facility] CRP SerPl-mCncon 04-20-2024 CRP [Mass/Vol] 0.4 mg/dL Normal <0.9 [facility] Comment on above: Order Comment: Speci men Type: BLOOD SPECIMEN Ordering Facility: [facility] Address: [address] [place] [address] Performed By: #### 1 988-5 #### [facility] CLIA [id number] [address] [place] [address] [place] D dimer FEU PPP-mCncon 04-20 Fibrin D-dimer FEU (PPP) [Mass/Vol] 360 ng/mL FEU Normal <500 [facility] Comment on above: Order Comment: Speci men Type: BLOOD SPECIMEN Ordering Facility: [facility] Address: [address] [place] [address] Performed By: #### 4 8065-7 #### [facility] CLIA [id number] [address] [place] [address] [place] D-DIMERon 04-20-2024 Fibrin D-dimer FEU (PPP) [Mass/Vol] 360 NINF [facility] ESR Westergren method (Bld) [Velocity]on 04-20-2024 ESR (Bld) [Velocity] 2 mm/h Normal 0-15 [facility] Comment on above: Order Comment: Speci men Type: BLOOD SPECIMEN Ordering Facility: [facility] Address: [address] [place] [address] Performed By: #### 4 537-7, 74183-3 #### [facility] CLIA [id number] [address] [place] [address] [place] Fibrin D-dimer FEU (PPP) [Ma ss/Vol]on 04-20-2024 D Dimer Age-related Cutoff 510 ng/mL FEU [facility] 500 ng/mL FEU is the D Dimer cutoff to exclude DVT (deep vein thrombosis) and PE (pulmonary embolism) in patients with a low pre test probability. Supplemental Comment: In patients over 50 years with a low pre test probability for DVT and/or PE, an age adjusted D dimer cutoff can be calculated as [age x 10] ng/mL FEU. For example, a patient of 88 years would have an age adjusted D dimer cutoff of 880 ng/mL FEU. For patients with a suspected DVT, a D dimer level below 500 ng/mL FEU has a negative predictive value of >98.9%, a sensitivity of >96.9% and a specificity of >35.7%. For patients with a suspected PE, a D dimer level below 500 ng/mL FEU has a negative predictive value of >98.5%, and a sensitivity of >96.5% and a specificity of >38.8%. Reference: Charmaine M, et al. DENIA 2014 311:1117 and Van Nilam N, et al. Gabo Int Med 2016 165:253. [facility] D DIMER AGE-RELATED CUTOFF 510 ng/mL FEU Normal [facility] Comment on above: Order Comment: Speci men Type: BLOOD SPECIMEN Ordering Facility: [facility] Address: [address] [place] [address] Performed By: #### 4 8065-7 #### [facility] CLIA [id number] [address] OF [facility] HbA1c (Bld)on 04-20-2024 Average glucose Estimated from glycated hemoglobin (Bld) [Mass/Vol] 100 mg/dL Normal [facility] Comment on above: Order Comment: Tessa flores Type: BLOOD SPECIMEN Ordering Facility: [facility] Address: [address] [place] [address] Result Comment: eAG: (Estimated average glucose) is a calculated value from HgbA1c and is door to door sales representative of the average blood glucose level in the last 2-3 month period. Performed By: #### 5 5454-3 #### [facility] CLIA [id number] [address] [place] [address] OF [facility] HbA1c (Bld) [Mass fraction] 5.1 % Normal 4.3-5.6 [facility] Comment on above: Order Comment: Tessa flores Type: BLOOD SPECIMEN Ordering Facility: [facility] Address: [address] [place] [address] Result Comment: [place] Diabetes Association guidelines indicate that patients with HgbA1c in the range 5.7-6.4% are at increased risk for development of diabetes, and intervention by lifestyle modification may be beneficial. HgbA1c greater or equal to 6.5% is considered diagnostic of diabetes. Performed By: #### 5 5454-3 #### [facility] CLIA [id number] [address] [place] [address] OF [facility] Large Joint Arthro/Inj: L nidhi hamlin jointon 04-20-2024 Guy Salgado MD 04/20/2024 4:00 PM Large Joint Arthro/Inj: L shoulder joint Informed Consent Consent Obtained: Verbal [place] Protocol A moment to CARE was completed. SIGN IN Sign in communication not applicable due to emergent procedure. Personnel directly involved with the procedure wore the appropriate PPE. Special Equipment: Yes Patient/Surrogate Stated/Verified: Patient name, Date of and Relevant allergies TIME OUT Relevant labs, photos, and/or imaging studies have been reviewed. Intended patient and procedure match the source document(s). Consent documented and matches the intended procedure. Correct side/site marked and visible. Medications required for procedure verified. Fire risk assessed and interventions discussed. Implant(s) inserted. Correct implant(s) confirmed including size and side.04/20/2024 3:57 PM The procedure site was prepped in the usual sterile fashion. Site: L shoulder joint Aspirate: 1 mL bloody; sent for lab analysis Outcome: Tolerated well, no immediate complications Post-injection instructions were reviewed with the patient and the patient voiced understanding of these instructions. SIGN OUT All specimen containers correctly labeled. All instruments, equipment, possible retained foreign bodies accounted for. Post-procedure follow-up management communicated and Plan of Care Visit completed when applicable [facility] XR SHLDR >/=3V AP/REBEKA AP/OTH R LTon 04-20-2024 XR SHLDR >/=3V AP/REBEKA AP/OTHR LT * * *Final Report* * * DATE OF EXAM: Apr 20 2024 2:04PM AOX 5252 - XR SHLDR >/=3V AP/REBEKA AP/OTHR LT / PROCEDURE REASON: Left shoulder pain, unspecified chronicity * * * * Physician Interpretation * * * * HISTORY (as given from clinical provider): Left shoulder pain, unspecified chronicity . Additional history provided by the performing technologist (if any): --> left shoulder pain, history of left shoulder replacement TECHNIQUE: XR SHLDR >/=3V AP/REBEKA AP/OTHR LT COMPARISON: 12/22/2019 RESULT: Total shoulder arthroplasty with resurfacing components. Expected postsurgical appearance. No other significant abnormality. Cna Gna: GREGORY Transcribe Date/Time: Apr 20 2024 2:35P Dictated by : SYDNIE GAITAN MD This examination was interpreted and the report reviewed and electronically signed by: SYDNIE GAITAN MD on Apr 20 2024 2:35PM EST [id number] Normal [facility] XR Shoulder - left 3 Viewson 04-20-2024 * * *Final Report* * * DATE OF EXAM: Apr 20 2024 2:04PM AOX 5252 - XR SHLDR >/=3V AP/REBEKA AP/OTHR LT / PROCEDURE REASON: Left shoulder pain, unspecified chronicity * * * * Physician Interpretation * * * * HISTORY (as given from clinical provider): Left shoulder pain, unspecified chronicity . Additional history provided by the performing technologist (if any): --> left shoulder pain, history of left shoulder replacement TECHNIQUE: XR SHLDR >/=3V AP/REBEKA AP/OTHR LT COMPARISON: 12/22/2019 RESULT: Total shoulder arthroplasty with resurfacing components. Expected postsurgical appearance. No other significant abnormality. Cna Gna: [facility] Transcribe Date/Time: Apr 20 2024 2:35P Dictated by : SYDNIE GAITAN MD This examination was interpreted and the report reviewed and electronically signed by: SYDNIE GAITAN MD on Apr 20 2024 2:35PM [facility]OLOG[facility] Provider, [facility] - 04/20/2024 * * *Final Report* * * DATE OF EXAM: Apr 20 2024 2:04PM AOX 5252 - XR SHLDR >/=3V AP/REBEKA AP/OTHR LT / PROCEDURE REASON: Left shoulder pain, unspecified chronicity * * * * Physician Interpretation * * * * HISTORY (as given from clinical provider): Left shoulder pain, unspecified chronicity . Additional history provided by the performing technologist (if any): --> left shoulder pain, history of left shoulder replacement TECHNIQUE: XR SHLDR >/=3V AP/REBEKA AP/OTHR LT COMPARISON: 12/22/2019 RESULT: Total shoulder arthroplasty with resurfacing components. Expected postsurgical appearance. No other significant abnormality. Cna Gna: [facility] Transcribe Date/Time: Apr 20 2024 2:35P Dictated by : SYDNIE GAITAN MD This examination was interpreted and the report reviewed and electronically signed by: SYDNIE GAITAN MD on Apr 20 2024 2:35PM EST [facility] Radiology [facility] - [facility] 3 ViewsOr dered By: Cc Provider on 04-20-2024 [facility] Basophils Auto (Bld) [#/Vol] Ordered By: Imad Asaad on 04-17-2024 Basophils (Bld) [#/Vol] Automated basophil count 0.0-0.2 [facility] Basophils/100 WBC Auto (Bld) Ordered By: Ton Connolly on 04-17-2024 Basophils/100 WBC (Bld) Automated basophil % . [facility] Complete Blood Count Auto Di ffon 04-17-2024 Basophils (Bld) [#/Vol] 0.1 10*3/uL Normal 0.0-0.2 [facility] Comment on above: Result Comment: PERF ORMED BY: [place] [address] PATHOLOGIST RUSSIAN RUBBER JASWINDER WILD M.D. Performed By: #### P T, CBC, PTT #### [address] Basophils/100 WBC (Bld) 0.7 % Normal . [facility] Comment on above: Performed By: #### P T, CBC, PTT #### [address] Eosinophils (Bld) [#/Vol] 0.1 10*3/uL Normal 0.0-0.45 [facility] Comment on above: Performed By: #### P T, CBC, PTT #### [address] Eosinophils/100 WBC (Bld) 1.8 % Normal . [facility] Comment on above: Performed By: #### P T, CBC, PTT #### [address] Erythrocyte distribution width (RBC) [Ratio] 13.2 % Normal 12.0-14.8 [facility] Comment on above: Performed By: #### P T, CBC, PTT #### [address] Hematocrit (Bld) [Volume fraction] 45.1 % Normal 38.8-50.0 [facility] Comment on above: Performed By: #### P T, CBC, PTT #### [address] Hemoglobin (Bld) [Mass/Vol] 15.8 g/dL Normal 13.0-17.0 [facility] Comment on above: Performed By: #### P T, CBC, PTT #### [address] Lymphocytes (Bld) [#/Vol] 1.0 10*3/uL Normal 1.00-4.8 [facility] Comment on above: Performed By: #### P T, CBC, PTT #### [address] Lymphocytes/100 WBC (Bld) 13.6 % Normal . [facility] Comment on above: Performed By: #### P T, CBC, PTT #### [address] MCH (RBC) [Entitic mass] 29.0 pg Normal 27.5-35.2 [facility] Comment on above: Performed By: #### P T, CBC, PTT #### [address] MCV (RBC) [Entitic vol] 82.9 fL Low 83.5-101 [facility] Comment on above: Performed By: #### P T, CBC, PTT #### [address] Mean Corpuscular HGB Conc 34.9 g/dL Normal 32.5-35.6 [facility] Comment on above: Performed By: #### P T, CBC, PTT #### [address] Monocytes (Bld) [#/Vol] 0.6 10*3/uL Normal 0.0-0.8 [facility] Comment on above: Performed By: #### P T, CBC, PTT #### [address] Monocytes/100 WBC (Bld) 8.0 % Normal . [facility] Comment on above: Performed By: #### P T, CBC, PTT #### [address] Neutrophils (Bld) [#/Vol] 5.6 10*3/uL Normal 1.8-7.7 [facility] Comment on above: Performed By: #### P T, CBC, PTT #### [address] Neutrophils/100 WBC (Bld) 75.9 % Normal . [facility] Comment on above: Performed By: #### P T, CBC, PTT #### [facility] [address] NRBC% 0.1 /100{WBC} Normal 0-0.5 [facility] Comment on above: Performed By: #### P T, CBC, PTT #### [address] Platelet mean volume (Bld) [Entitic vol] 8.4 fL Normal 6.6-10.1 [facility] Comment on above: Performed By: #### P T, CBC, PTT #### [place] [address] [place] Platelets (Bld) [#/Vol] 188 10*3/uL Normal 150-450 [facility] Comment on above: Performed By: #### P T, CBC, PTT #### [address] RBC (Bld) [#/Vol] 5.45 10*6/uL Normal 3.90-5.60 [facility] Comment on above: Performed By: #### P T, CBC, PTT #### [place] [address] [place] WBC (Bld) [#/Vol] 7.4 10*3/uL Normal 4.1-10.5 [facility] Comment on above: Performed By: #### P T, CBC, PTT #### [place] [address] [place] Eosinophils Auto (Bld) [#/Vo l]Ordered By: Ton Connolly on 04-17-2024 Eosinophils (Bld) [#/Vol] Automated eosinophil count 0.0-0.45 [facility] Eosinophils/100 WBC Auto (Bl d)Ordered By: Imad Asaad on 04-17-2024 Eosinophils/100 WBC (Bld) Automated eosinophil % . [facility] Erythrocyte distribution wid th Auto (RBC) [Ratio]Ordered By: Imad Asaad on 04-17-2024 Erythrocyte distribution width (RBC) [Ratio] Erythrocyte distribution width [Ratio] by Automated count 12.0-14.8 [facility] Hematocrit Auto (Bld) [Volum e fraction]Ordered By: Imad Asaad on 04-17-2024 Hematocrit (Bld) [Volume fraction] Hematocrit [Volume Fraction] of Blood by Automated count 38.8-50.0 [facility] Hemoglobin [Mass/volume] in BloodOrdered By: Imad Asaad on 04-17-2024 Hemoglobin (Bld) [Mass/Vol] Hemoglobin [Mass/volume] in Blood 13.0-17.0 [facility] INR in Platelet poor plasma by Coagulation assayOrdered By: Imad Asaad on 04-17-2024 INR Coag (PPP) [Relative time] INR in Platelet poor plasma by Coagulation assay [facility] Comment on above: INR Therapeutic Rang e A) Pre- and Peroperative OAT started two weeks before surgery. NOT HIP SURGERY: 1.5 - 2.5 HIP SURGERY: 2 - 3B) Primary and secondary prevention of venous THROMBOSIS: 2 - 3C) Active venous thrombosis, pulmonary embolismand prevention of recurrent venous thrombosis: 2 - 3D) Prevention of arterial thromboembolismincluding patients with mechanical heart valves: 3 - 4.5 Leukocytes [#/volume] correc spring for nucleated erythrocytes in Blood by Automated counOrdered By: Imad Asaad on 04-17-2024 WBC corrected for nucl RBC Auto (Bld) [#/Vol] Leukocytes [#/volume] corrected for nucleated erythrocytes in Blood by Automated coun 4.1-10.5 [facility] Lymphocytes Auto (Bld) [#/Vo l]Ordered By: Imad Asaad on 04-17-2024 Lymphocytes (Bld) [#/Vol] Lymphocytes [#/volume] in Blood by Automated count 1.00-4.8 [facility] Lymphocytes/100 WBC Auto (Bl d)Ordered By: Imad Asaad on 04-17-2024 Lymphocytes/100 WBC (Bld) Lymphocytes/100 leukocytes in Blood by Automated count . [facility] MCH Auto (RBC) [Entitic mass ]Ordered By: Imad Asaad on 04-17-2024 MCH (RBC) [Entitic mass] MCH [Entitic mass] by Automated count 27.5-35.2 [facility] MCHC Auto (RBC) [Mass/Vol]Or dered By: Imad Asaad on 04-17-2024 MCHC (RBC) [Mass/Vol] MCHC [Mass/volume] by Automated count 32.5-35.6 [facility] MCV Auto (RBC) [Entitic vol] Ordered By: Imad Asaad on 04-17-2024 MCV (RBC) [Entitic vol] MCV [Entitic volume] by Automated count Low 83.5-101 [facility] Monocytes Auto (Bld) [#/Vol] Ordered By: Imad Asaad on 04-17-2024 Monocytes (Bld) [#/Vol] Automated blood monocyte count 0.0-0.8 [facility] Monocytes/100 WBC Auto (Bld) Ordered By: Imad Asaad on 04-17-2024 Monocytes/100 WBC (Bld) Automated monocyte % . [facility] Neutrophils Auto (Bld) [#/Vo l]Ordered By: Imad Asaad on 04-17-2024 Neutrophils (Bld) [#/Vol] Neutrophils [#/volume] in Blood by Automated count 1.8-7.7 [facility] Neutrophils/100 WBC Auto (Bl d)Ordered By: Imad Asaad on 04-17-2024 Neutrophils/100 WBC (Bld) Automated neutrophil % . [facility] Nucleated erythrocytes [Pres ence] in Blood by Automated countOrdered By: Imad Asaad on 04-17-2024 Nucleated RBC Auto Ql (Bld) Nucleated erythrocytes [Presence] in Blood by Automated count 0-0.5 [facility] Partial Thromboplastin Timeo n 04-17-2024 aPTT Coag (Bld) [Time] 31.4 s Normal 25.1-36.5 [facility] Comment on above: Result Comment: A he matocrit value greater than 55% may lead to inaccurate results in coagulation testing. Patients having hematocrit values >55% require a special collection tube for coagulation studies. Please contact the laboratory at [phone] for redraw instructions. PERFORMED BY: [place] [id number] PATHOLOGIST RUSSIAN RUBBER JASWINDER WILD M.D. Performed By: #### P T, CBC, PTT #### [address] Platelet mean volume Auto (B ld) [Entitic vol]Ordered By: Imad Asaad on 04-17-2024 Platelet mean volume (Bld) [Entitic vol] Platelet mean volume [Entitic volume] in Blood by Automated count 6.6-10.1 [facility] Platelets Auto (Bld) [#/Vol] Ordered By: Imad Asaad on 04-17-2024 Platelets (Bld) [#/Vol] Platelets [#/volume] in Blood by Automated count 150-450 [facility] Prothrombin Time INRon 04-17 INR Coag (PPP) [Relative time] 1.2 {INR} Normal [facility] Comment on above: Result Comment: INR Therapeutic Range A) Pre- and Peroperative OAT started two weeks before surgery. NOT HIP SURGERY: 1.5 - 2.5 HIP SURGERY: 2 - 3 B) Primary and secondary prevention of venous THROMBOSIS: 2 - 3 C) Active venous thrombosis, pulmonary embolism and prevention of recurrent venous thrombosis: 2 - 3 D) Prevention of arterial thromboembolism including patients with mechanical heart valves: 3 - 4.5 Performed By: #### P T, CBC, PTT #### [address] PT Coag (PPP) [Time] 13.3 s High 9.0-12.9 [facility] Comment on above: Result Comment: A he matocrit value greater than 55% may lead to inaccurate results in coagulation testing. Patients having hematocrit values >55% require a special collection tube for coagulation studies. Please contact the laboratory at [phone] for redraw instructions. Performed By: #### P T, CBC, PTT #### [place] [id number] [facility] Prothrombin time (PT)Ordered By: seferino Akers on 04-17-2024 PT Coag (PPP) [Time] Prothrombin time (PT) High 9.0- 12.9 [facility] Comment on above: A hematocrit value g reater than 55% may lead to inaccurate results in coagulation testing. Patients having hematocrit values >55% require a special collection tube for coagulation studies. Please contact the laboratory at [phone] for redraw instructions. RBC Auto (Bld) [#/Vol]Ordere d By: Imad Asaad on 04-17-2024 RBC (Bld) [#/Vol] Erythrocytes [#/volu me] in Blood by Automated count 3.90-5.60 [facility] WBC Auto (Bld) [#/Vol]Ordere d By: Imad Asaad on 04-17-2024 WBC (Bld) [#/Vol] Leukocytes [#/volume ] in Blood by Automated count 4.1-10.5 [facility] aPTT in Platelet poor plasma by Coagulation assayOrdered By: Imad Asaad on 04-17-2024 aPTT Coag (PPP) [Time] Activated partial thromboplastin time (aPTT) in platelet poor plasma by coagulation a 25.1-36.5 [facility] Comment on above: A hematocrit value g reater than 55% may lead to inaccurate results in coagulation testing. Patients having hematocrit values >55% require a special collection tube for coagulation studies. Please contact the laboratory at [phone] for redraw instructions. Basophils Auto (Bld) [#/Vol] Ordered By: Imad Asaad on 03-13-2024 Basophils (Bld) [#/Vol] Automated basophil count 0.0-0.2 [facility] Basophils/100 WBC Auto (Bld) Ordered By: ad Asaad on 03-13-2024 Basophils/100 WBC (Bld) Automated basophil % . [facility] Complete Blood Count Auto Di ffon 03-13-2024 Basophils (Bld) [#/Vol] 0.1 10*3/uL Normal 0.0-0.2 [facility] Comment on above: Result Comment: PERF ORMED BY: [place] [address] PATHOLOGIST RUSSIAN RUBBER JASWINDER WILD M.D. Performed By: #### C BC, PT, PTT #### [address] Basophils/100 WBC (Bld) 0.8 % Normal . [facility] Comment on above: Performed By: #### C BC, PT, PTT #### [address] Eosinophils (Bld) [#/Vol] 0.1 10*3/uL Normal 0.0-0.45 [facility] Comment on above: Performed By: #### C BC, PT, PTT #### [address] Eosinophils/100 WBC (Bld) 1.2 % Normal . [facility] Comment on above: Performed By: #### C BC, PT, PTT #### [address] Erythrocyte distribution width (RBC) [Ratio] 13.9 % Normal 12.0-14.8 [facility] Comment on above: Performed By: #### C BC, PT, PTT #### [address] Hematocrit (Bld) [Volume fraction] 45.8 % Normal 38.8-50.0 [facility] Comment on above: Performed By: #### C BC, PT, PTT #### [address] Hemoglobin (Bld) [Mass/Vol] 15.7 g/dL Normal 13.0-17.0 [facility] Comment on above: Performed By: #### C BC, PT, PTT #### [address] Lymphocytes (Bld) [#/Vol] 1.0 10*3/uL Normal 1.00-4.8 [facility] Comment on above: Performed By: #### C BC, PT, PTT #### [facility] [address] [place] [address] [place] Lymphocytes/100 WBC (Bld) 11.1 % Normal . [facility] Comment on above: Performed By: #### C BC, PT, PTT #### [place] [address] [place] MCH (RBC) [Entitic mass] 29.3 pg Normal 27.5-35.2 [facility] Comment on above: Performed By: #### C BC, PT, PTT #### [address] MCV (RBC) [Entitic vol] 85.6 fL Normal 83.5-101 [facility] Comment on above: Performed By: #### C BC, PT, PTT #### [address] Mean Corpuscular HGB Conc 34.2 g/dL Normal 32.5-35.6 [facility] Comment on above: Performed By: #### C BC, PT, PTT #### [place] [address] [place] Monocytes (Bld) [#/Vol] 0.7 10*3/uL Normal 0.0-0.8 [facility] Comment on above: Performed By: #### C BC, PT, PTT #### [place] [address] [place] Monocytes/100 WBC (Bld) 7.2 % Normal . [facility] Comment on above: Performed By: #### C BC, PT, PTT #### [place] [address] [place] Neutrophils (Bld) [#/Vol] 7.3 10*3/uL Normal 1.8-7.7 [facility] Comment on above: Performed By: #### C BC, PT, PTT #### [place] [address] [place] Neutrophils/100 WBC (Bld) 79.7 % Normal . [facility] Comment on above: Performed By: #### C BC, PT, PTT #### [facility] [address] NRBC% 0.1 /100{WBC} Normal 0-0.5 [facility] Comment on above: Performed By: #### C BC, PT, PTT #### [facility] [address] Platelet mean volume (Bld) [Entitic vol] 8.6 fL Normal 6.6-10.1 The [facility] Physician Group Comment on above: Performed By: #### C BC, PT, PTT #### [facility] [address] Platelets (Bld) [#/Vol] 210 10*3/uL Normal 150-450 [facility] Comment on above: Performed By: #### C BC, PT, PTT #### [facility] [address] RBC (Bld) [#/Vol] 5.35 10*6/uL Normal 3.90-5.60 [facility] Comment on above: Performed By: #### C BC, PT, PTT #### [facility] [address] [place] [address] [place] WBC (Bld) [#/Vol] 9.1 10*3/uL Normal 4.1-10.5 The [facility] Comment on above: Performed By: #### C BC, PT, PTT #### [facility] 1111 [place] [address] [place] Eosinophils Auto (Bld) [#/Vo l]Ordered By: Imad Asaad on 03-13-2024 Eosinophils (Bld) [#/Vol] Automated eosinophil count 0.0-0.45 [facility] Eosinophils/100 WBC Auto (Bl d)Ordered By: Imad Asaad on 03-13-2024 Eosinophils/100 WBC (Bld) Automated eosinophil % . [facility] Erythrocyte distribution wid th Auto (RBC) [Ratio]Ordered By: Imad Asaad on 03-13-2024 Erythrocyte distribution width (RBC) [Ratio] Erythrocyte distribution width [Ratio] by Automated count 12.0-14.8 [facility] Hematocrit Auto (Bld) [Volum e fraction]Ordered By: Imad Asaad on 03-13-2024 Hematocrit (Bld) [Volume fraction] Hematocrit [Volume Fraction] of Blood by Automated count 38.8-50.0 [facility] Hemoglobin [Mass/volume] in BloodOrdered By: Imad Asaad on 03-13-2024 Hemoglobin (Bld) [Mass/Vol] Hemoglobin [Mass/volume] in Blood 13.0-17.0 [facility] INR in Platelet poor plasma by Coagulation assayOrdered By: Imad Asaad on 03-13-2024 INR Coag (PPP) [Relative time] INR in Platelet poor plasma by Coagulation assay [facility] Comment on above: INR Therapeutic Rang e A) Pre- and Peroperative OAT started two weeks before surgery. NOT HIP SURGERY: 1.5 - 2.5 HIP SURGERY: 2 - 3B) Primary and secondary prevention of venous THROMBOSIS: 2 - 3C) Active venous thrombosis, pulmonary embolismand prevention of recurrent venous thrombosis: 2 - 3D) Prevention of arterial thromboembolismincluding patients with mechanical heart valves: 3 - 4.5 Leukocytes [#/volume] correc spring for nucleated erythrocytes in Blood by Automated counOrdered By: Imad Asaad on 03-13-2024 WBC corrected for nucl RBC Auto (Bld) [#/Vol] Leukocytes [#/volume] corrected for nucleated erythrocytes in Blood by Automated coun 4.1-10.5 [facility] Lymphocytes Auto (Bld) [#/Vo l]Ordered By: Imad Asaad on 03-13-2024 Lymphocytes (Bld) [#/Vol] Lymphocytes [#/volume] in Blood by Automated count 1.00-4.8 [facility] Lymphocytes/100 WBC Auto (Bl d)Ordered By: Imad Asaad on 03-13-2024 Lymphocytes/100 WBC (Bld) Lymphocytes/100 leukocytes in Blood by Automated count . [facility] MCH Auto (RBC) [Entitic mass ]Ordered By: Imad Asaad on 03-13-2024 MCH (RBC) [Entitic mass] MCH [Entitic mass] by Automated count 27.5-35.2 [facility] MCHC Auto (RBC) [Mass/Vol]Or dered By: Imad Asaad on 03-13-2024 MCHC (RBC) [Mass/Vol] MCHC [Mass/volume] by Automated count 32.5-35.6 [facility] MCV Auto (RBC) [Entitic vol] Ordered By: Imad Asaad on 03-13-2024 MCV (RBC) [Entitic vol] MCV [Entitic volume] by Automated count 83.5-101 [facility] Monocytes Auto (Bld) [#/Vol] Ordered By: Imad Asaad on 03-13-2024 Monocytes (Bld) [#/Vol] Automated blood monocyte count 0.0-0.8 [facility] Monocytes/100 WBC Auto (Bld) Ordered By: Imad Asaad on 03-13-2024 Monocytes/100 WBC (Bld) Automated monocyte % . [facility] Neutrophils Auto (Bld) [#/Vo l]Ordered By: Imad Asaad on 03-13-2024 Neutrophils (Bld) [#/Vol] Neutrophils [#/volume] in Blood by Automated count 1.8-7.7 [facility] Neutrophils/100 WBC Auto (Bl d)Ordered By: Imad Asaad on 03-13-2024 Neutrophils/100 WBC (Bld) Automated neutrophil % . [facility] No Panel InformationOrdered By: ad [facility] on 03-13-2024 Miscellaneous Pathology Test See comment [facility] Comment on above: See report. Scanned copy available in EMR. Nucleated erythrocytes [Pres ence] in Blood by Automated countOrdered By: Imad Asaad on 03-13-2024 Nucleated RBC Auto Ql (Bld) Nucleated erythrocytes [Presence] in Blood by Automated count 0-0.5 [facility] Partial Thromboplastin Timeo n 03-13-2024 aPTT Coag (Bld) [Time] 31.7 s Normal 25.1-36.5 [facility] Comment on above: Result Comment: A he matocrit value greater than 55% may lead to inaccurate results in coagulation testing. Patients having hematocrit values >55% require a special collection tube for coagulation studies. Please contact the laboratory at [phone] for redraw instructions. PERFORMED BY: [facility] [place] [address] PATHOLOGIST RUSSIAN RUBBER JASWINDER WILD M.D. Performed By: #### C BC, PT, PTT #### [address] Pathology Request for Lab Co rpon 03-13-2024 Pathology Request for Lab Caron Normal [facility] Comment on above: Order Comment: PATHO LOGY GI SPECIMEN Result Comment: See report. Scanned copy available in EMR. PERFORMED BY: [place] [address] PATHOLOGIST RUSSIAN RUBBER JASWINDER WILD M.D. Performed By: #### P ATH TO [facility] #### [address] Platelet mean volume Auto (B ld) [Entitic vol]Ordered By: Imad Asaad on 03-13-2024 Platelet mean volume (Bld) [Entitic vol] Platelet mean volume [Entitic volume] in Blood by Automated count 6.6-10.1 [facility] Platelets Auto (Bld) [#/Vol] Ordered By: Imad Asaad on 03-13-2024 Platelets (Bld) [#/Vol] Platelets [#/volume] in Blood by Automated count 150-450 [facility] Prothrombin Time INRon 03-13 INR Coag (PPP) [Relative time] 1.2 {INR} Normal [facility] Comment on above: Result Comment: INR Therapeutic Range A) Pre- and Peroperative OAT started two weeks before surgery. NOT HIP SURGERY: 1.5 - 2.5 HIP SURGERY: 2 - 3 B) Primary and secondary prevention of venous THROMBOSIS: 2 - 3 C) Active venous thrombosis, pulmonary embolism and prevention of recurrent venous thrombosis: 2 - 3 D) Prevention of arterial thromboembolism including patients with mechanical heart valves: 3 - 4.5 Performed By: #### C BC, PT, PTT #### [place] [id number] [facility] PT Coag (PPP) [Time] 13.3 s High 9.0-12.9 [facility] Comment on above: Result Comment: A he matocrit value greater than 55% may lead to inaccurate results in coagulation testing. Patients having hematocrit values >55% require a special collection tube for coagulation studies. Please contact the laboratory at [phone] for redraw instructions. Performed By: #### C BC, PT, PTT #### [facility] [address] [place] [id number] [facility] Prothrombin time (PT)Ordered By: [facility] Oswald on 03-13-2024 PT Coag (PPP) [Time] Prothrombin time (PT) High 9.0- 12.9 [facility] Comment on above: A hematocrit value g reater than 55% may lead to inaccurate results in coagulation testing. Patients having hematocrit values >55% require a special collection tube for coagulation studies. Please contact the laboratory at [phone] for redraw instructions. RBC Auto (Bld) [#/Vol]Ordere d By: [facility] on 03-13-2024 RBC (Bld) [#/Vol] Erythrocytes [#/volu me] in Blood by Automated count 3.90-5.60 [facility] WBC Auto (Bld) [#/Vol]Ordere d By: [facility] on 03-13-2024 WBC (Bld) [#/Vol] Leukocytes [#/volume ] in Blood by Automated count 4.1-10.5 [facility] aPTT in Platelet poor plasma by Coagulation assayOrdered By: [facility] on 03-13-2024 aPTT Coag (PPP) [Time] Activated partial thromboplastin time (aPTT) in platelet poor plasma by coagulation a 25.1-36.5 [facility] Comment on above: A hematocrit value g reater than 55% may lead to inaccurate results in coagulation testing. Patients having hematocrit values >55% require a special collection tube for coagulation studies. Please contact the laboratory at [phone] for redraw instructions. XR Shoulder - left 2 [facility] 02-08-2024 Imaging Result: 4 views left shoulder, Grashey/Zanca/outlet/axill baljit, taken today and saved to the permanent medical record are reviewed. Prosthesis is unchanged in position and alignment. No signs of prosthetic wear or loosening. No periprosthetic fractures. [facility] XR Shoulder - left 2 [facility] 02-04-2024 Radiology Study observation (narrative) [facility] Healthcare 36on 11-12-2023 36 Normal [facility] 36on 10-07-2023 36 Normal [facility] Follow-Upon 10-07-2023 Follow-Up Normal [facility] Orders Onlyon 10-07-2023 Orders Only Normal [facility] Telephoneon 10-07-2023 Telephone Normal [facility] ED Clinical Summaryon 2023 ED Clinical Summary [facility] ? 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 Arrival: 09/26/2023 09:05:07 Discharge: 09/26/2023 10:39:00 LOS: 000 01:34 Check In: 09/26/2023 09:05:07 Checkout: 09/26/2023 10:39:00 Address: [address] [place] [address] PCP: DEMETRIUS BERNAL PROVIDER INFORMATION Provider Role [...] Instructions: Follow-Up: With: Address: When: DEMETRIUS BERNAL [address] [place] [id number] Business (1) , only if needed DIAGNOSIS: Physical exam Patient Understands: Yes - Patient/family/caregiver verbalizes understanding of instructions given Comment: [facility] ED Patient Summaryon 024 ED Patient Summary [facility] ? 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 It is important for you to follow up with a doctor, nurse practitioner, or physician?s technology assistant for ongoing care. If your symptoms [...] of medications post discharge. 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 POCT Glucose Levelon 024 Glucose [Mass/Vol] 112 mg/dL Normal 74-118 [facility] Comment on above: Result Comment: OPR_ ID=[email or web address],TGC FLAG = False,Meter:[id number] Paperhanger:Remy Montes Performed By: #### 4 [id number] ####[facility] (DEFAULT)[address] [place] [address] UA Standardon 09-26-2023 Breakpoint UA [facility] Comment on above: Performed By: #### 1 [id number] #### [facility] (DEFAULT) [address] [place] [address] Color (U) Yellow [facility] Comment on above: Performed By: #### 1 [id number] #### [facility] (DEFAULT) [address] [place] [address] Glucose (U) [Mass/Vol] mg/dL [facility] Comment on above: Performed By: #### 1 [id number] #### [facility] (DEFAULT) [address] [place] [address] Ketones Ql (U) TRACE [facility] Comment on above: Performed By: #### 1 [id number] #### [facility] (DEFAULT) [address] [place] [address] UA Bilirubin Negative [facility] Comment on above: Performed By: #### 1 [id number] #### [facility] (DEFAULT) [address] [place] [address] UA Blood Negative Normal NEGATIVE [facility] Comment on above: Performed By: #### 1 [id number] #### [facility] (DEFAULT) [address] [place] [address] UA Clarity CLEAR Normal CLEAR [facility] Comment on above: Performed By: #### 1 [id number] #### [facility] (DEFAULT) [address] [place] [address] UA Leuk Est Negative Normal NEGATIVE [facility] Comment on above: Performed By: #### 1 [id number] #### [facility] (DEFAULT) [address] [place] [address] 19247 UA Nitrite Negative Normal NEGATIVE [facility] Comment on above: Performed By: #### 1 [id number] #### [facility] (DEFAULT) [address] [place] [address] UA pH 6.0 Normal 5-8 [facility] Comment on above: Performed By: #### 1 [id number] #### [facility] (DEFAULT) [address] [place] [address] UA Protein 100 Abnormal NEGATIVE [facility] Comment on above: Performed By: #### 1 [id number] #### [facility] (DEFAULT) [address] [place] [address] UA Spec Grav >=1.030 Normal 1.001-1.035 [facility] Comment on above: Performed By: #### 1 [id number] #### [facility] (DEFAULT) [address] [place] [address] UA Urobilinogen 0.2 mg/dL Normal 0.2-1.0 [facility] Comment on above: Performed By: #### 1 [id number] #### [facility] (DEFAULT) [address] [place] [address]73 Urine Source Clean Catch Normal [facility] Comment on above: Performed By: #### 1 [id number] #### [facility] (DEFAULT) [address] [place] [address] Urgent Care Note- Provideron 09-26-2023 Urgent Care [...] history): All Problems Hypertension / SNOMED CT 2518731552 / Confirmed GERD (gastroesophageal reflux disease) / SNOMED CT 994416748 / Confirmed Diabetes / SNOMED CT 934566296 / Confirmed Objective CONST: -Obese -Acute distress: [...] Plan Assessment and Plan: Diagnosis: Physical exam (FJC12-RE Z00.00). Orders Orders Patient Care: Glucose POC [...] 4 months ago. 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 Patient also shows a echocardiogram from 1 week ago that shows an ejection fraction of 35%. Patient's recent INR's are not in range of 2.5-3.5 which is required by mechanical heart valve. I discussed this with him indicated that he will need a letter releasing him stating he is okay to drive from his valve mechanic, I indicated that he needs an echocardiogram [...] on: 09/26/2023 11:04 EDT] POLY KAUR Normal [facility] [place] 024 Urgent Care Record [facility] ? Urgent Care [address] [place] [address] PATIENT DISCHARGE INSTRUCTIONS Patient Information Name: NEHAL [...] any legal documents With: Address: When: DEMETRIUS GABE [employer] [facility] [place] [address] Business (1) , only if needed Medication Information: The exam and treatment you received today in the [facility] were for an urgent problem and are not intended as complete care. It is important for you to follow up with a doctor, nurse practitioner, or physician?s technology assistant for ongoing care. If your symptoms [...] of medications post discharge. 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 gun stock maker/provider of your visit and for further instruction [...] for Disease Control and Prevention November 2013 [facility] Abstracton 09-20-2023 Abstract Normal [facility] Follow-Upon 09-19-2023 Follow-Up [facility] 30on 09-06-2023 30 Normal [facility] 30 [facility] BASIC METABOLIC PANELon Anion gap [Moles/Vol] 13 mmol/L Normal 10-18 [facility] Comment on above: Performed By: #### L [id number] ####[facility] (BEAKER)[address] [place] [address] Calcium [Mass/Vol] 9.8 mg/dL Normal 8.6-10.3 [facility] Comment on above: Performed By: #### L [id number] ####[facility] (BEAKER)[address] [place] [address] Chloride [Moles/Vol] 97 mmol/L Low 98-107 [facility] Comment on above: Performed By: #### L [id number] ####[facility] ([facility])[address] [place] [address] CO2 [Moles/Vol] 31 mmol/L Normal 21-31 [facility] Comment on above: Performed By: #### L [id number] ####[facility] ([facility])[address] [place] [address] Creatinine [Mass/Vol] 1.03 mg/dL Normal 0.70-1.30 [facility] Comment on above: Performed By: #### L [id number] ####[facility] ([facility])[address] [place] [address] GLOMERULAR FILTRATION RATE ML/MIN/1.73 SQ M.PREDICTED 88.5 mL/min/1.73m*2 Normal >60.0 [facility] Comment on above: Result Comment: The [facility]???s estimated glomerular filtration rate (eGFR) [...] of individuals. Performed By: #### L [id number] ####[facility] ([facility] [place] [address] Glucose [Mass/Vol] 140 mg/dL High 70-100 [facility] Comment on above: Performed By: #### L [id number] ####[facility] (BEAKER)[address] [place] [address] Potassium [Moles/Vol] 4.6 mmol/L Normal 3.5-5.1 [facility] Comment on above: Performed By: #### L [id number] ####[facility] (BEAKER)[address] [place] [address] Sodium [Moles/Vol] 136 mmol/L Normal 136-145 [facility] Comment on above: Performed By: #### L [id number] ####[facility] (BEAKER)[address] [place] [address] Urea nitrogen [Mass/Vol] 17 mg/dL Normal 7-25 [facility] Comment on above: Performed By: #### L [id number] ####[facility] (BEAKER)[address] [place] [address] UREA NITROGEN/CREATININE (MASS RATIO) IN SER/PLAS 16.5 Normal [facility] Comment on above: Performed By: #### L [id number] ####[facility] (BEAKER)[address] [place] [address] CBCon 09-06-2023 Erythrocyte distribution width (RBC) [Ratio] 15.3 % High 11.5-15.0 [facility] Comment on above: Performed By: #### L [id number] ####[facility] (BEAKER)[address] [place], [place] [address] ERYTHROCYTE MEAN CORPUSCULAR HEMOGLOBIN CONCENTRATION (G/DL) BY AUTOMATED 29.9 g/dL Low 32.0-35.0 [facility] Comment on above: Performed By: #### L [id number] ####[facility] (BEAKER)[address] [place], [place] [address] Hematocrit (Bld) [Volume fraction] 40.1 % Normal 39.0-55.0 [facility] Comment on above: Performed By: #### L [id number] ####[facility] (BEAKER)[address] [place], [place] [address] Hemoglobin (Bld) [Mass/Vol] 12.0 g/dL Low 13.0-17.0 [facility] Comment on above: Performed By: #### L [id number] ####[facility] (BEAKER)[address] [place] [address] MCH (RBC) [Entitic mass] 23.9 pg Low 27.0-33.0 [facility] Comment on above: Performed By: #### L [id number] ####[facility] ([facility])[address] [place] [address] MCV (RBC) [Entitic vol] 79.7 fL Low 82.0-98.0 [facility] Comment on above: Performed By: #### L [id number] ####[facility] ([facility])[address] [place] [address] PLATELETS (10*3/UL) IN BLOOD AUTOMATED COUNT 273 10*3/uL Normal 150-400 [facility] Comment on above: Performed By: #### L [id number] ####[facility] ([facility])[place] [address] RBC (Bld) [#/Vol] 5.03 10*6/uL Normal 4.20-5.70 [facility] Comment on above: Performed By: #### L [id number] ####[facility] ([facility])[address] [place] [address] WBC (Bld) [#/Vol] 6.25 10*3/uL Normal 4.00-10.60 [facility] Comment on above: Performed By: #### L [id number] ####[facility] ([facility])[address] [place] [address] DSon 09-06-2023 DS Normal [facility] MAGNESIUMon 09-06-2023 Magnesium [Mass/Vol] 2.1 mg/dL Normal 1.9-2.7 [facility] Comment on above: Performed By: #### L [id number] ####[facility] ([facility])[address] [place] [address] PHOSPHORUSon 09-06-2023 Magnesium [Mass/Vol] 5.0 mg/dL Normal 2.5-5.0 [facility] Comment on above: Performed By: #### L [id number] ####[facility] (BEAKER)[address] [place] [address] PROTIME-INRon 09-06-2023 INR IN PPP BY COAGULATION ASSAY 1.58 High 0.90-1.10 [facility] Comment on above: Result Comment: [...] CHEST 1995;108:231S-246S. Performed By: #### L [id number] ####[facility] ([employer])[address] [place] [address] PROTHROMBIN TIME (PT) IN PPP BY COAGULATION ASSAY 18.7 Seconds High 12.3-14.8 [facility] Comment on above: Performed By: #### L [id number] ####[facility] (BEAKER)[address] [place] [address] 30on 09-05-2023 30 Normal [facility] 30 Normal [facility] BASIC METABOLIC PANELon Anion gap [Moles/Vol] 12 mmol/L Normal 7-20 [facility] Comment on above: Performed By: #### L [id number] ####[facility] (BEAKER)[address] [place] [address] Calcium [Mass/Vol] 9.5 mg/dL Normal 8.6-10.3 [facility] Comment on above: Performed By: #### L [id number] ####[facility] ([facility])[address] [place] [address] Chloride [Moles/Vol] 96 mmol/L Low 98-107 [facility] Comment on above: Performed By: #### L [id number] ####[facility] ([facility])[address] [place] [address] CO2 [Moles/Vol] 32 mmol/L High 21-31 [facility] Comment on above: Performed By: #### L [id number] ####[facility] [facility] ([facility])[address] [facility] [place] [address] Creatinine [Mass/Vol] 0.96 mg/dL Normal 0.70-1.30 [facility] Comment on above: Performed By: #### L [id number] ####[facility] ([facility])[address] [place] [address] GLOMERULAR FILTRATION RATE ML/MIN/1.73 SQ M.PREDICTED 96.3 mL/min/1.73m*2 Normal >60.0 [facility] Comment on above: Result Comment: The [facility]???s estimated glomerular filtration rate (eGFR) [...] of individuals. Performed By: #### L [id number] ####[facility] ([facility])[address] [facility] [place] [address] Glucose [Mass/Vol] 102 mg/dL High 70-100 [facility] Comment on above: Performed By: #### L [id number] ####[facility] (BEAKER)[address] [place] [address] Potassium [Moles/Vol] 4.6 mmol/L Normal 3.5-5.1 [facility] Comment on above: Performed By: #### L [id number] ####[facility] (BEAKER)[address] [place] [address] Sodium [Moles/Vol] 135 mmol/L Low 136-145 [facility] Comment on above: Performed By: #### L [id number] ####[facility] ([facility] [place] [address] Urea nitrogen [Mass/Vol] 15 mg/dL Normal 7-25 [facility] Comment on above: Performed By: #### L [id number] ####[facility] ([facility] [place] [address] UREA NITROGEN/CREATININE (MASS RATIO) IN SER/PLAS 15.6 Normal [facility] Comment on above: Performed By: #### L [id number] ####[facility] ([facility] [place] [address] CBCon 09-05-2023 Erythrocyte distribution width (RBC) [Ratio] 15.5 % High 11.5-15.0 [facility] Comment on above: Performed By: #### L [id number] ####[facility] ([facility] [place] [address] ERYTHROCYTE MEAN CORPUSCULAR HEMOGLOBIN CONCENTRATION (G/DL) BY AUTOMATED 30.5 g/dL Low 32.0-35.0 [facility] Comment on above: Performed By: #### L [id number] ####[facility] (BEAKER)[address] [place] [address] Hematocrit (Bld) [Volume fraction] 38.0 % Low 39.0-55.0 [facility] Comment on above: Performed By: #### L [id number] ####[facility] (BEAKER)[address] [place] [address] Hemoglobin (Bld) [Mass/Vol] 11.6 g/dL Low 13.0-17.0 [facility] Comment on above: Performed By: #### L [id number] ####[facility] ([facility] [place] [address] MCH (RBC) [Entitic mass] 23.9 pg Low 27.0-33.0 [facility] Comment on above: Performed By: #### L [id number] ####[facility] ([facility])[address] [place] [address] MCV (RBC) [Entitic vol] 78.4 fL Low 82.0-98.0 [facility] Comment on above: Performed By: #### L [id number] ####[facility] ([facility])[address] [place] [address] PLATELETS (10*3/UL) IN BLOOD AUTOMATED COUNT 247 10*3/uL Normal 150-400 [facility] Comment on above: Performed By: #### L [id number] ####[facility] ([facility])[address] [place] [address] RBC (Bld) [#/Vol] 4.85 10*6/uL Normal 4.20-5.70 [facility] Comment on above: Performed By: #### L [id number] ####[facility] ([facility] [place] [address] WBC (Bld) [#/Vol] 6.30 10*3/uL Normal 4.00-10.60 [facility] Comment on above: Performed By: #### L [id number] ####[facility] ([facility])[address] [place] [address] MAGNESIUMon 09-05-2023 Magnesium [Mass/Vol] 2.0 mg/dL Normal 1.9-2.7 [facility] Comment on above: Performed By: #### L [id number] ####[facility] (BEAKER)[address] [place] [address] PHOSPHORUSon 09-05-2023 Magnesium [Mass/Vol] 5.2 mg/dL High 2.5-5.0 [facility] Comment on above: Performed By: #### L [id number] ####[facility] ([facility])[address] [place] [address] PROTIME-INRon 09-05-2023 INR IN PPP BY COAGULATION ASSAY 1.64 High 0.90-1.10 [facility] Comment on above: Result Comment: [...] CHEST 1995;108:231S-246S. Performed By: #### L [id number] ####[facility] ([facility])[address] [place] [address] PROTHROMBIN TIME (PT) IN PPP BY COAGULATION ASSAY 19.2 Seconds High 12.3-14.8 [facility] Comment on above: Performed By: #### L [id number] ####[facility] ([facility])[address] [place] [address] 30on 09-04-2023 30 Normal [facility] 30 Normal [facility] BASIC METABOLIC PANELon 06- Anion gap [Moles/Vol] 12 mmol/L Normal 7-20 [facility] Comment on above: Performed By: #### L [id number] ####[facility] (BEAKER)[address] [place] [address] Calcium [Mass/Vol] 9.1 mg/dL Normal 8.6-10.3 [facility] Comment on above: Performed By: #### L [id number] ####[facility] (BEAKER)[address] [place] [address] Chloride [Moles/Vol] 96 mmol/L Low 98-107 [facility] Comment on above: Performed By: #### L [id number] ####[facility] (BEAKER)[address] [place] [address] CO2 [Moles/Vol] 30 mmol/L Normal 21-31 [facility] Comment on above: Performed By: #### L [id number] ####[facility] (BEAKER)[address] [place] [address] Creatinine [Mass/Vol] 0.88 mg/dL Normal 0.70-1.30 [facility] Comment on above: Performed By: #### L [id number] ####[facility] ([facility] [place] [address] GLOMERULAR FILTRATION RATE ML/MIN/1.73 SQ M.PREDICTED 104.8 mL/min/1.73m*2 Normal >60.0 [facility] Comment on above: Result Comment: The [facility]???s estimated glomerular filtration rate (eGFR) [...] of individuals. Performed By: #### L [id number] ####[facility] (BEAKER)[address] [place] [address] Glucose [Mass/Vol] 93 mg/dL Normal 70-100 [facility] Comment on above: Performed By: #### L [id number] ####[facility] ([facility])[address] [place] [address] Potassium [Moles/Vol] 4.0 mmol/L Normal 3.5-5.1 [facility] Comment on above: Performed By: #### L [id number] ####[facility] ([facility])[address] [place] [address] Sodium [Moles/Vol] 134 mmol/L Low 136-145 [facility] Comment on above: Performed By: #### L [id number] ####[facility] ([facility])[address] [place] [address] Urea nitrogen [Mass/Vol] 16 mg/dL Normal 7-25 [facility] Comment on above: Performed By: #### L [id number] ####[facility] ([facility])[address] [place] [address] UREA NITROGEN/CREATININE (MASS RATIO) IN SER/PLAS 18.2 Normal [facility] Comment on above: Performed By: #### L [id number] ####[facility] ([facility])[address] [place] [address] CBCon 09-04-2023 Erythrocyte distribution width (RBC) [Ratio] 15.7 % High 11.5-15.0 [facility] Comment on above: Performed By: #### L [id number] ####[facility] ([facility])[address] [place] [address] ERYTHROCYTE MEAN CORPUSCULAR HEMOGLOBIN CONCENTRATION (G/DL) BY AUTOMATED 31.0 g/dL Low 32.0-35.0 [facility] Comment on above: Performed By: #### L [id number] ####[facility] ([facility])[address] [place] [address] Hematocrit (Bld) [Volume fraction] 34.5 % Low 39.0-55.0 [facility] Comment on above: Performed By: #### L [id number] ####[facility] ([facility] [place] [address] Hemoglobin (Bld) [Mass/Vol] 10.7 g/dL Low 13.0-17.0 [facility] Comment on above: Performed By: #### L [id number] ####[facility] ([facility])[address] [place] [address] MCH (RBC) [Entitic mass] 24.4 pg Low 27.0-33.0 [facility] Comment on above: Performed By: #### L [id number] ####[facility] ([facility])[address] [place] [address] MCV (RBC) [Entitic vol] 78.8 fL Low 82.0-98.0 [facility] Comment on above: Performed By: #### L [id number] ####[facility] ([facility])[address] [place] [address] PLATELETS (10*3/UL) IN BLOOD AUTOMATED COUNT 221 10*3/uL Normal 150-400 [facility] Comment on above: Performed By: #### L [id number] ####[facility] ([facility])[address] [place] [address] RBC (Bld) [#/Vol] 4.38 10*6/uL Normal 4.20-5.70 [facility] Comment on above: Performed By: #### L [id number] ####[facility] ([facility])[address] [place] [address] WBC (Bld) [#/Vol] 9.37 10*3/uL Normal 4.00-10.60 [facility] Comment on above: Performed By: #### L [id number] ####[facility] ([facility])[address] [place] [address] MAGNESIUMon 09-04-2023 Magnesium [Mass/Vol] 1.8 mg/dL Low 1.9-2.7 [facility] Comment on above: Performed By: #### L [id number] ####[facility] (BEAKER)[address] [place] [address] PHOSPHORUSon 09-04-2023 Magnesium [Mass/Vol] 4.4 mg/dL Normal 2.5-5.0 [facility] Comment on above: Performed By: #### L [id number] ####[facility] (BEAKER)[place] [address] PROTIME-INRon 09-04-2023 INR IN PPP BY COAGULATION ASSAY 1.60 High 0.90-1.10 [facility] Comment on above: Result Comment: [...] CHEST 1995;108:231S-246S. Performed By: #### L [id number] ####[facility] (BEAKER)[address] [place] [address] PROTHROMBIN TIME (PT) IN PPP BY COAGULATION ASSAY 18.8 Seconds High 12.3-14.8 [facility] Comment on above: Performed By: #### L [id number] ####[facility] (BEAKER)[place] [address] 30on 09-03-2023 30 Normal [facility] 30 Normal [facility] ANESon 09-03-2023 ANES Normal [facility] APTTon 09-03-2023 ACTIVATED PARTIAL THROMBOPLASTIN TIME IN PPP BY COAGULATION ASSAY 32.6 Seconds Normal 25.0-35.0 [facility] Comment on above: Result Comment: Clin ical significance of the APTT is questionable in the presence of heparin. Performed By: #### L [id number] ####[facility] ([facility] [place] [address] BASIC METABOLIC PANELon Anion gap [Moles/Vol] 11 mmol/L Normal 7-20 [facility] Comment on above: Performed By: #### L [id number] ####[facility] ([facility])[address] [place] [address] Calcium [Mass/Vol] 9.2 mg/dL Normal 8.6-10.3 [facility] Comment on above: Performed By: #### L [id number] ####[facility] ([facility] [place] [address] Chloride [Moles/Vol] 100 mmol/L Normal 98-107 [facility] Comment on above: Performed By: #### L [id number] ####[facility] ([facility] [place] [address] CO2 [Moles/Vol] 29 mmol/L Normal 21-31 [facility] Comment on above: Performed By: #### L [id number] ####[facility] ([facility] [place] [address] Creatinine [Mass/Vol] 1.11 mg/dL Normal 0.70-1.30 [facility] Comment on above: Performed By: #### L [id number] ####[facility] ([facility])[address] [place] [address] GLOMERULAR FILTRATION RATE ML/MIN/1.73 SQ M.PREDICTED 80.9 mL/min/1.73m*2 Normal >60.0 [facility] Comment on above: Result Comment: The [facility]???s estimated glomerular filtration rate (eGFR) [...] of individuals. Performed By: #### L [id number] ####[facility] ([facility])[address] [place] [address] Glucose [Mass/Vol] 119 mg/dL High 70-100 [facility] Comment on above: Performed By: #### L [id number] ####[facility] ([facility])[address] [place] [address] Potassium [Moles/Vol] 4.3 mmol/L Normal 3.5-5.1 [facility] Comment on above: Performed By: #### L [id number] ####[facility] ([facility])[address] [place] [address] Sodium [Moles/Vol] 136 mmol/L Normal 136-145 [facility] Comment on above: Performed By: #### L [id number] ####[facility] ([facility] [place] [address] Urea nitrogen [Mass/Vol] 22 mg/dL Normal 7-25 [facility] Comment on above: Performed By: #### L [id number] ####[facility] ([facility] [place] [address] UREA NITROGEN/CREATININE (MASS RATIO) IN SER/PLAS 19.8 Normal [facility] Comment on above: Performed By: #### L [id number] ####[facility] ([facility])[address] [place] [address] Anion gap [Moles/Vol] 11 mmol/L Normal 7-20 [facility] Comment on above: Performed By: #### L [id number] ####[facility] ([facility] [place] [address] Calcium [Mass/Vol] 9.1 mg/dL Normal 8.6-10.3 [facility] Comment on above: Performed By: #### L [id number] ####[facility] (BEAKER)[address] [place] [address] Chloride [Moles/Vol] 98 mmol/L Normal 98-107 [facility] Comment on above: Performed By: #### L [id number] ####[facility] ([facility] [place] [address] CO2 [Moles/Vol] 30 mmol/L Normal 21-31 [facility] Comment on above: Performed By: #### L [id number] ####[facility] ([facility])[address] [place] [address] Creatinine [Mass/Vol] 1.25 mg/dL Normal 0.70-1.30 [facility] Comment on above: Performed By: #### L [id number] ####[facility] ([facility])[address] [place] [address] GLOMERULAR FILTRATION RATE ML/MIN/1.73 SQ M.PREDICTED 70.2 mL/min/1.73m*2 Normal >60.0 [facility] Comment on above: Result Comment: The [facility]???s estimated glomerular filtration rate (eGFR) [...] of individuals. Performed By: #### L [id number] ####[facility] ([facility] [place] [address] Glucose [Mass/Vol] 105 mg/dL High 70-100 [facility] Comment on above: Performed By: #### L [id number] ####[facility] (BEAKER)[address] [facility] [address] Potassium [Moles/Vol] 4.2 mmol/L Normal 3.5-5.1 [facility] Comment on above: Performed By: #### L [id number] ####[facility] (BEAKER)[address] [place] [address] Sodium [Moles/Vol] 135 mmol/L Low 136-145 [facility] Comment on above: Performed By: #### L [id number] ####[facility] (BEAKER)[address] [place] [address] Urea nitrogen [Mass/Vol] 22 mg/dL Normal 7-25 [facility] Comment on above: Performed By: #### L [id number] ####[facility] (BEAKER)[address] [place] [address] UREA NITROGEN/CREATININE (MASS RATIO) IN SER/PLAS 17.6 Normal [facility] Comment on above: Performed By: #### L [id number] ####[facility] (BEAKER)[address] [place] [address] BLOOD CULTUREon 09-03-2023 Bacteria identified Cx Nom (Bld) No growth at 5 days [facility] Comment on above: Order Comment: From a different site than #1. Performed By: #### L [id number] ####[facility] (BEAKER)[address] [place] [address] Order Comment: Place d Back on Insturment BODY FLUID CELL DIFFERENTIAL on 09-03-2023 BASOPHILS TOTAL PER COUNTED LEUKOCYTES IN BODY FLUID BY MANUAL COUNT 2 Normal [facility] Comment on above: Order Comment: Diffe rential performed on cytospin Performed By: #### L [id number] ####[facility] (BEAKER)[address] [place] [address] CELLS COUNTED TOTAL (#) IN BODY FLUID 100 Normal [facility] Comment on above: Order Comment: Diffe rential performed on cytospin Performed By: #### L [id number] ####[facility] (BEAKER)[address] [place] [address] EOSINOPHILS TOTAL PER COUNTED LEUKOCYTES IN BODY FLUID BY MANUAL COUNT 3 [facility] Comment on above: Order Comment: Diffe rential performed on cytospin Performed By: #### L [id number] ####[facility] (BEAKER)[address] [place] [address] LYMPHOCYTES TOTAL PER COUNTED LEUKOCYTES IN BODY FLUID BY MANUAL COUNT 53 [facility] Comment on above: Order Comment: Diffe rential performed on cytospin Performed By: #### L [id number] ####[facility] (BEAKER)[address] [place] [address] MESOTHELIAL CELLS TOTAL PER COUNTED LEUKOCYTES IN BODY FLUID BY MANUAL COUN 1 [facility] Comment on above: Order Comment: Diffe rential performed on cytospin Performed By: #### L [id number] ####[facility] (BEAKER)[address] [facility] [place] [address] MONOCYTES+MACROPHAGE S TOTAL PER COUNTED LEUKOCYTES IN BODY FLUID BY MANUAL 0 [facility] Comment on above: Order Comment: Diffe rential performed on cytospin Performed By: #### L [id number] ####[facility] (BEAKER)[address] [place] [address] NEUTROPHILS TOTAL PER COUNTED LEUKOCYTES IN BODY FLUID BY MANUAL COUNT 41 [facility] Comment on above: Order Comment: Diffe rential performed on cytospin Performed By: #### L [id number] ####[facility] (BEAKER)[address] [place] [address] OTHER CELLS BODY FLUID (MANUAL) 0 [facility] Comment on above: Order Comment: Diffe rential performed on cytospin Performed By: #### L [id number] ####[facility] (BEAKER)[address] [place] [address] BODY FLUID CULTUREon 024 Bacteria identified Cx Nom (Unsp spec) No growth at 5 days [facility] Comment on above: Performed By: #### L [id number] ####[facility] (BEAKER)[address] [place] [address] GRAM STAIN RESULT Normal [facility] Comment on above: Result Comment: Poly morphonuclear leukocytesNo organisms seen Performed By: #### L [id number] ####[facility] ([facility])[address] [place] [address] C-REACTIVE PROTEINon 024 C REACTIVE PROTEIN (MG/L) IN SER/PLAS 20.7 mg/L High 0.0-7.0 [facility] Comment on above: Performed By: #### L [id number] ####[facility] ([facility])[address] [place] [address] CBCon 09-03-2023 Erythrocyte distribution width (RBC) [Ratio] 15.4 % High 11.5-15.0 [facility] Comment on above: Performed By: #### L [id number] ####[facility] ([facility])[address] [place] [address] ERYTHROCYTE MEAN CORPUSCULAR HEMOGLOBIN CONCENTRATION (G/DL) BY AUTOMATED 30.5 g/dL Low 32.0-35.0 [facility] Comment on above: Performed By: #### L [id number] ####[facility] ([facility])[address] [place] [address] Hematocrit (Bld) [Volume fraction] 36.4 % Low 39.0-55.0 [facility] Comment on above: Performed By: #### L [id number] ####[facility] ([facility])[address] [place] [address] Hemoglobin (Bld) [Mass/Vol] 11.1 g/dL Low 13.0-17.0 [facility] Comment on above: Performed By: #### L [id number] ####[facility] ([facility])[address] [place] [address] MCH (RBC) [Entitic mass] 24.7 pg Low 27.0-33.0 [facility] Comment on above: Performed By: #### L [id number] ####[facility] ([facility])[address] [place], [place] [address] MCV (RBC) [Entitic vol] 81.1 fL Low 82.0-98.0 [facility] Comment on above: Performed By: #### L [id number] ####[facility] [place] [address] PLATELETS (10*3/UL) IN BLOOD AUTOMATED COUNT 228 10*3/uL Normal 150-400 [facility] Comment on above: Performed By: #### L [id number] ####[facility] ([facility])[address] [place], [place] [address] RBC (Bld) [#/Vol] 4.49 10*6/uL Normal 4.20-5.70 [facility] Comment on above: Performed By: #### L [id number] ####[facility] ([facility])[address] [place], [place] [address] WBC (Bld) [#/Vol] 9.94 10*3/uL Normal 4.00-10.60 [facility] Comment on above: Performed By: #### L [id number] ####[facility] ([facility])[address] [place] [address] Erythrocyte distribution width (RBC) [Ratio] 15.6 % High 11.5-15.0 [facility] Comment on above: Performed By: #### L [id number] ####[facility] ([facility] [place] [address] ERYTHROCYTE MEAN CORPUSCULAR HEMOGLOBIN CONCENTRATION (G/DL) BY AUTOMATED 30.1 g/dL Low 32.0-35.0 [facility] Comment on above: Performed By: #### L [id number] ####[facility] ([facility])[address], [place] [address] Hematocrit (Bld) [Volume fraction] 36.5 % Low 39.0-55.0 [facility] Comment on above: Performed By: #### L [id number] ####[facility] ([facility])[address] [place] [address] Hemoglobin (Bld) [Mass/Vol] 11.0 g/dL Low 13.0-17.0 [facility] Comment on above: Performed By: #### L [id number] ####[facility] ([facility] [place] [address] MCH (RBC) [Entitic mass] 24.0 pg Low 27.0-33.0 [facility] Comment on above: Performed By: #### L [id number] ####[facility] ([facility] [place] [address] MCV (RBC) [Entitic vol] 79.7 fL Low 82.0-98.0 [facility] Comment on above: Performed By: #### L [id number] ####[facility] ([facility] [place] [address] PLATELETS (10*3/UL) IN BLOOD AUTOMATED COUNT 238 10*3/uL Normal 150-400 [facility] Comment on above: Performed By: #### L [id number] ####[facility] ([facility])[address] [place] [address] RBC (Bld) [#/Vol] 4.58 10*6/uL Normal 4.20-5.70 [facility] Comment on above: Performed By: #### L [id number] ####[facility] ([facility] [place] [address] WBC (Bld) [#/Vol] 10.35 10*3/uL Normal 4.00-10.60 [facility] Comment on above: Performed By: #### L [id number] ####[facility] ([facility] [place] [address] CONSULTon 09-03-2023 CONSULT Normal [facility] GLUCOSE, BODY FLUIDon 2023 GLUCOSE (MG/DL) IN BODY FLUID 33 mg/dL Normal [facility] Comment on above: Result Comment: The reference range and other method performance specifications have not been established for this test in fluids. the test result should be integrated into the clinical context for interpretation. Performed By: #### L [id number] ####[facility] ([facility])[address] [facility] [address] HPon 09-03-2023 HP Normal [facility] HP Normal [facility] LACTATE DEHYDROGENASE, BODY FLUIDon 09-03-2023 LACTATE DEHYDROGENASE (U/L) IN BODY FLUID BY LAC->PYR 1022 U/L Normal [facility] Comment on above: Result Comment: The reference range and other method performance specifications have not been established for this test in fluids. the test result should be integrated into the clinical context for interpretation. Performed By: #### L [id number] ####[facility] ([facility])[address] [facility] [address] MAGNESIUMon 09-03-2023 Magnesium [Mass/Vol] 2.0 mg/dL Normal 1.9-2.7 [facility] Comment on above: Performed By: #### L [id number] ####[facility] ([facility])[address] [facility] [place] [address] Magnesium [Mass/Vol] 1.8 mg/dL Low 1.9-2.7 [facility] Comment on above: Performed By: #### L [id number] ####[facility] ([facility] [place] [address] NON-DRAG OUT MAN CYTOLOGY - CELLULAR EXAMon 09-03-2023 LAB AP CASE REPORT Normal [facility] Comment on above: Result Comment: Non- gynecologic Cytology Case: [id number] Provider: Art George MD Collected: 09/03/2023 1415Ordering Location: [facility] Received: 09/04/2023 0654Pathologist: LILIA Gutierrezpecimen: Pericardial Fluid Performed By: #### L [id number] ####[facility] (BEAKER)[address] [place] [address] LAB AP CLINICAL INFORMATION Normal [facility] Comment on above: Result Comment: Post -Op DiagnosesNo Dx found. Performed By: #### L [id number] ####[facility] (BEAKER)[address] [place] [address] LAB AP GROSS DESCRIPTION [facility] Comment on above: Result Comment: 900 mL opaque, dark red fluid. Performed By: #### L [id number] ####[facility] (BEAKER)[address] [place] [address] LAB AP REPORT FINAL DIAGNOSIS NARRATIVE [facility] Comment on above: Result Comment: A. P ericardial Fluid: - Negative for malignancy Performed By: #### L [id number] ####[facility] ([facility] [place] [address] PATHOLOGY REVIEWon PATHOLOGY REVIEW Reviewed. Normal [facility] Comment on above: Result Comment: Elec tronically signed by Brenton Sorensen MD on 09/04/23 at 8:43 AM. Performed By: #### L [id number] ####[facility] (BE[facility]ER)[address] [place] [address] PHOSPHORUSon 09-03-2023 Magnesium [Mass/Vol] 4.5 mg/dL Normal 2.5-5.0 [facility] Comment on above: Performed By: #### L [id number] ####[facility] ([facility]ER)[address] [place] [address] Magnesium [Mass/Vol] 4.3 mg/dL Normal 2.5-5.0 [facility] Comment on above: Performed By: #### L [id number] ####[facility] ([facility]ER)[address] [place] [address] PROTEIN, BODY FLUIDon 2023 Protein (Body fld) [Mass/Vol] 5.0 g/dL [facility] Comment on above: Result Comment: The reference range and other method performance specifications have not been established for this test in fluids. the test result should be integrated into the clinical context for interpretation. Performed By: #### L [id number] ####[facility] (BEAKER)[address] [place] [address] PROTIME-INRon 09-03-2023 INR IN PPP BY COAGULATION ASSAY 1.61 High 0.90-1.10 [facility] Comment on above: Result Comment: [facility] P RECOMMENDED INR FOR WARFARIN THERAPY CONDITION INRPROPHYLAXIS OF VENOUS THROMBOSIS 2-3(HIGH-RISK SURGERY)TREATMENT OF VENOUS THROMBOSIS 2-3TREATMENT OF PULMONARY EMBOLISM 2-3PREVENTION OF SYSTEMIC EMBOLISM: 2-3 ACUTE MYOCARDIAL INFARCTION TISSUE HEART VALVES VALVULAR HEART DISEASE ATRIAL FIBRILLATION RECURRENT SYSTEMIC EMBOLISMMECHANICAL HEART VALVE 2.5-3.5 FROM: ORAL ANTICOAGULANTS. MECHANISM OF ACTION, CLINICAL EFFECTIVENESS, AND OPTIMAL THERAPEUTIC RANGE. CHEST 1995;108:231S-246S. Performed By: #### L [id number] ####[facility] ([facility])[address] [place] [address] PROTHROMBIN TIME (PT) IN PPP BY COAGULATION ASSAY 19.0 Seconds High 12.3-14.8 [facility] Comment on above: Performed By: #### L [id number] ####[facility] ([facility])[address] [place] [address] INR IN PPP BY COAGULATION ASSAY 1.57 High 0.90-1.10 [facility] Comment on above: Result Comment: [facility] P RECOMMENDED INR FOR WARFARIN THERAPY CONDITION INRPROPHYLAXIS OF VENOUS THROMBOSIS 2-3(HIGH-RISK SURGERY)TREATMENT OF VENOUS THROMBOSIS 2-3TREATMENT OF PULMONARY EMBOLISM 2-3PREVENTION OF SYSTEMIC EMBOLISM: 2-3 ACUTE MYOCARDIAL INFARCTION TISSUE HEART VALVES VALVULAR HEART DISEASE ATRIAL FIBRILLATION RECURRENT SYSTEMIC EMBOLISMMECHANICAL HEART VALVE 2.5-3.5 FROM: ORAL ANTICOAGULANTS. MECHANISM OF ACTION, CLINICAL EFFECTIVENESS, AND OPTIMAL THERAPEUTIC RANGE. CHEST 1995;108:231S-246S. Performed By: #### L [id number] ####[facility] ([employer])[address] [place] [address] PROTHROMBIN TIME (PT) IN PPP BY COAGULATION ASSAY 18.6 Seconds High 12.3-14.8 [facility] Comment on above: Performed By: #### L [id number] ####[facility] ([facility])[address] [place] [address] TYPE AND SCREENon 09-03-2023 AB SCREEN Negative [facility] Comment on above: Performed By: #### L [id number] ####[facility]OD [facility], ABO group Nom (Bld) A Normal [facility] Comment on above: Performed By: #### L [id number] ####[facility]OD [facility], RH TYPE IN BLOOD Negative Normal [facility] Comment on above: Performed By: #### L [id number] ####[facility], 3608-30-2023 36 Order faxed. [facility] 3608-28-2023 36 Normal [facility] Family Medicine Office/Clini c Noteon 08-28-2023 Family Medicine Office/Clinic Note HPI Staff Nehal is a 52 year old male presenting to establish care Establish Care: History: Any previous diagnosis: HTN, Heel spurs Asthma, Depression, headaches, headaches, migraines, kidney stones, JACOBY History of seeing any specialist: Dr camryn quiñones When was your last doctors visit: Last provider: Dr Aguillon Any recent labs: [facility] around 8 months ago Flu: refused Health Maintenance UTD: Colonoscopy: 2021 PSA: unsure if it has ever been checked Acute: Current issues/complaints: Pt has sleep study done and uses machine would like cpap supplies sent to [employer] in [place] pt does wear full mask- Resmed Air [...] provided. pt will have them done at [facility] on Saturday. Ordered: Misc Prescription, Full [...] will send order to medical supplies in [place] Ordered: Misc Prescription, Full Mask Resmed Air [...] # 90 tab(s), Refills(s) 3, Pharmacy: [facility]/pharmacy #[id number], 185.5, cm, 01/09/23 16:37:00 EDT, Height/Length Dosing, 174.3, kg, 01/09/23 16:37:00 EDT, Weight Dosing Follow-up No qualifying data (more content not included)... Normal [facility] Comment on above: Result Comment: Elec tronically Signed By: Vonnie Gardner\.br\Date and Time Signed: 08/28/23 09:59 EDT Telephoneon 08-27-2023 Telephone Normal [facility] 36on 08-14-2023 36 Normal [facility] Orders Onlyon 08-12-2023 Orders Only Normal [facility] Orders Onlyon 08-08-2023 Orders Only Normal [facility] 37on 08-07-2023 37 Continue to monitor for signs and symptoms of infection including fever, chills, shortness of breath, chest pain, abdominal pain, nausea, vomiting and diarrhea. Call our office if you notice any of these or go to the ED if needing to Normal [facility] BASIC METABOLIC PANELon 05-0 Anion gap [Moles/Vol] 11 mmol/L Normal 7-20 [facility] Comment on above: Performed By: #### L [id number] ####[facility] (BEAKER)[address] [place] [address] Calcium [Mass/Vol] 9.1 mg/dL Normal 8.6-10.3 [facility] Comment on above: Performed By: #### L [id number] ####[facility] (BEAKER)[address] [place] [address] Chloride [Moles/Vol] 101 mmol/L Normal 98-107 [facility] Comment on above: Performed By: #### L [id number] ####[facility] (BE[facility]ER)[address] [place] [address] CO2 [Moles/Vol] 31 mmol/L Normal 21-31 [facility] Comment on above: Performed By: #### L [id number] ####[facility] (BEAKER)[address] [place] [address] Creatinine [Mass/Vol] 0.93 mg/dL Normal 0.70-1.30 [facility] Comment on above: Performed By: #### L [id number] ####[facility] (BEAKER)[address] [place] [address] GLOMERULAR FILTRATION RATE ML/MIN/1.73 SQ M.PREDICTED 100.0 mL/min/1.73m*2 Normal >60.0 [facility] Comment on above: Result Comment: The [facility]???s estimated glomerular filtration rate (eGFR) [...] of individuals. Performed By: #### L [id number] ####[facility] (BEAKER)[address] [place] [address] Glucose [Mass/Vol] 91 mg/dL Normal 70-100 [facility] Comment on above: Performed By: #### L [id number] ####[facility] (BEAKER)[address] [place] [address] Potassium [Moles/Vol] 4.3 mmol/L Normal 3.5-5.1 [facility] Comment on above: Performed By: #### L [id number] ####[facility] ([facility])[address] [place] [address] Sodium [Moles/Vol] 139 mmol/L Normal 136-145 [facility] Comment on above: Performed By: #### L [id number] ####[facility] ([facility])[address] [place] [address] Urea nitrogen [Mass/Vol] 8 mg/dL Normal 7-25 [facility] Comment on above: Performed By: #### L [id number] ####[facility] ([facility])[address] [place] [address] UREA NITROGEN/CREATININE (MASS RATIO) IN SER/PLAS 8.6 Normal [facility] Comment on above: Performed By: #### L [id number] ####[facility] ([facility])[address] [place] [address] C-REACTIVE PROTEINon 024 C REACTIVE PROTEIN (MG/L) IN SER/PLAS 21.4 mg/L High 0.0-7.0 [facility] Comment on above: Performed By: #### L [id number] ####[facility] ([facility])[address] [place] [address] Follow-Upon 08-07-2023 Follow-Up [facility] Labon 08-07-2023 Lab [facility] SEDIMENTATION RATEon 024 SEDIMENTATION RATE, ERYTHROCYTE 49 mm/hr High <=10 [facility] Comment on above: Performed By: #### L [id number] ####[facility] ([facility])[address] [place] [address] Orders Onlyon 08-05-2023 Orders Only [facility] 36on 07-25-2023 36 Phoned Coumadin clin ic regarding patients recent INR of 1.87. Spoke with RN regarding valve parameters for INR of 2.0-2.5 for first three months post op. RN noted that the patients coumadin would be adjusted to meet the therapeutic range. [facility] Documentationon 07-23-2023 Documentation [facility] 37on 07-17-2023 37 Normal [facility] Follow-Upon 07-17-2023 Follow-Up [facility] Refillon 07-17-2023 Refill [facility] 36on 07-11-2023 36 I received a call fr anders Urias stating the patient has been experiencing low BP and lightheadedness. BP: 96/54 So, she is wondering if his Lisinopril can be DC. He is currently still taking the Metoprolol as prescribed. [facility] Telephoneon 07-11-2023 Telephone [facility] 36on 07-08-2023 36 Opat received. Eliu villalobosed orders with Pina at [facility]. Has an appt w/ Annabella 07/14. [facility] BASIC METABOLIC PANELon Anion gap [Moles/Vol] 12 mmol/L Normal 7-20 [facility] Comment on above: Performed By: #### L [id number] ####[facility] ([facility]ER)[address] [place] [address] Calcium [Mass/Vol] 8.7 mg/dL Normal 8.6-10.3 [facility] Comment on above: Performed By: #### L [id number] ####[facility] ([facility]ER)[address] [place] [address] Chloride [Moles/Vol] 102 mmol/L Normal 98-107 [facility] Comment on above: Performed By: #### L [id number] ####[facility] ([facility]ER)[address] [place] [address] CO2 [Moles/Vol] 25 mmol/L Normal 21-31 [facility] Comment on above: Performed By: #### L [id number] ####[facility] ([facility]ER)[address] [place] [address] Creatinine [Mass/Vol] 1.02 mg/dL Normal 0.70-1.30 [facility] Comment on above: Performed By: #### L [id number] ####[facility] ([facility]ER)[address] [place] [address] GLOMERULAR FILTRATION RATE ML/MIN/1.73 SQ M.PREDICTED 89.5 mL/min/1.73m*2 Normal >60.0 [facility] Comment on above: Result Comment: [facility]???s estimated glomerular filtration rate (eGFR) [...] of individuals. Performed By: #### L [id number] ####[facility] ([facility])[address] [place] [address] Glucose [Mass/Vol] 101 mg/dL High 70-100 [facility] Comment on above: Performed By: #### L [id number] ####[facility] ([facility])[address] [place] [address] Potassium [Moles/Vol] 3.9 mmol/L Normal 3.5-5.1 [facility] Comment on above: Performed By: #### L [id number] ####[facility] ([facility])[address] [place] [address] Sodium [Moles/Vol] 135 mmol/L Low 136-145 [facility] Comment on above: Performed By: #### L [id number] ####[facility] ([facility] [place] [address] Urea nitrogen [Mass/Vol] 14 mg/dL Normal 7-25 [facility] Comment on above: Performed By: #### L [id number] ####[facility] ([facility])[address] [place] [address] UREA NITROGEN/CREATININE (MASS RATIO) IN SER/PLAS 13.7 Normal [facility] Comment on above: Performed By: #### L [id number] ####[facility] ([facility])[address] [place] [address] CBCon 07-05-2023 Erythrocyte distribution width (RBC) [Ratio] 15.7 % High 11.5-15.0 [facility] Comment on above: Performed By: #### L [id number] ####[facility] ([facility])[address] [place] [address] ERYTHROCYTE MEAN CORPUSCULAR HEMOGLOBIN CONCENTRATION (G/DL) BY AUTOMATED 31.8 g/dL Low 32.0-35.0 [facility] Comment on above: Performed By: #### L [id number] ####[facility] ([facility])[address] [address] Hematocrit (Bld) [Volume fraction] 26.1 % Low 39.0-55.0 [facility] Comment on above: Performed By: #### L [id number] ####[facility] ([facility])[address] [place] [address] Hemoglobin (Bld) [Mass/Vol] 8.3 g/dL Low 13.0-17.0 [facility] Comment on above: Performed By: #### L [id number] ####[facility] ([facility])[address] [place] [address] MCH (RBC) [Entitic mass] 28.2 pg Normal 27.0-33.0 [facility] Comment on above: Performed By: #### L [id number] ####[facility] ([facility])[address] [place] [address] MCV (RBC) [Entitic vol] 88.8 fL Normal 82.0-98.0 [facility] Comment on above: Performed By: #### L [id number] ####[facility] ([facility])[address] [place] [address] PLATELETS (10*3/UL) IN BLOOD AUTOMATED COUNT 216 10*3/uL Normal 150-400 [facility] Comment on above: Performed By: #### L [id number] ####[facility] ([facility])[address] [place] [address] RBC (Bld) [#/Vol] 2.94 10*6/uL Low 4.20-5.70 [facility] Comment on above: Performed By: #### L [id number] ####[facility] ([facility])[address] [place] [address] WBC (Bld) [#/Vol] 4.87 10*3/uL Normal 4.00-10.60 [facility] Comment on above: Performed By: #### L [id number] ####[facility] ([facility])[address] [place] [address] DSon 07-05-2023 DS Normal [facility] Letter (Out)on 07-05-2023 Letter (Out) Normal [facility] MAGNESIUMon 07-05-2023 Magnesium [Mass/Vol] 1.9 mg/dL Normal 1.9-2.7 [facility] Comment on above: Performed By: #### L [id number] ####[facility] ([facility])[address] [facility] [place] [address] POCT GLUCOSE METER UNSOLICIT ED RESULTSon 07-05-2023 Glucose [Mass/Vol] 123 mg/dL High 70-105 [facility] Comment on above: Order Comment: Waive d Testing in the ED is performed under the ED CLIA certificate #[id number]. Result Comment: [email or web address] Performed By: #### L [id number] ####[facility] ([facility])[address] [place] [address] Glucose [Mass/Vol] 112 mg/dL High 70-105 [facility] Comment on above: Order Comment: Waive d Testing in the ED is performed under the ED CLIA certificate #[id number]. Result Comment: [email or web address] Performed By: #### L [id number] ####[facility] ([facility])[address] [place] [address] PROTIME-INRon 07-05-2023 INR IN PPP BY COAGULATION ASSAY 2.17 High 0.90-1.10 [facility] Comment on above: Result Comment: [...] CHEST 1995;108:231S-246S. Performed By: #### L [id number] ####[facility] (BEAKER)[address] [place] [address] PROTHROMBIN TIME (PT) IN PPP BY COAGULATION ASSAY 24.3 Seconds High 12.3-14.8 [facility] Comment on above: Performed By: #### L [id number] ####[facility] (BEAKER)[address] [place] [address] 30on 07-04-2023 30 Normal [facility] 30 Normal [facility] 30 Normal [facility] ANTI-XA (LOW MOLECULAR WGT H EPARIN LVL)on 07-04-2023 LMW HEPARIN (U/ML) IN PPP BY CHROMOGENIC METHOD 1.00 IU/mL Normal 0.6-1.2 [facility] Comment on [...] and LMWH. Performed By: #### L [id number] ####[facility] (BEAKER)[address] [place] [address] BASIC METABOLIC PANELon 04-0 Anion gap [Moles/Vol] 10 mmol/L Normal 7-20 [facility] Comment on above: Performed By: #### L [id number] ####[facility] (BEAKER)[address] [place] [address] Calcium [Mass/Vol] 8.6 mg/dL Normal 8.6-10.3 [facility] Comment on above: Performed By: #### L [id number] ####[facility] (BEAKER)[address] [place] [address] Chloride [Moles/Vol] 103 mmol/L Normal 98-107 [facility] Comment on above: Performed By: #### L [id number] ####[facility] (BEAKER)[address] [place] [address] CO2 [Moles/Vol] 28 mmol/L Normal 21-31 [facility] Comment on above: Performed By: #### L [id number] ####[facility] (BEAKER)[address] [place] [address] Creatinine [Mass/Vol] 1.04 mg/dL Normal 0.70-1.30 [facility] Comment on above: Performed By: #### L [id number] ####[facility] (BEAKER)[address] [facility] [place] [address] GLOMERULAR FILTRATION RATE ML/MIN/1.73 SQ M.PREDICTED 87.5 mL/min/1.73m*2 Normal >60.0 [facility] Comment on above: Result Comment: The [facility]???s estimated glomerular filtration rate (eGFR) [...] of individuals. Performed By: #### L [id number] ####[facility] [facility] [address] Glucose [Mass/Vol] 91 mg/dL Normal 70-100 [facility] Comment on above: Performed By: #### L [id number] ####[facility] [facility] [address] Potassium [Moles/Vol] 4.6 mmol/L Normal 3.5-5.1 [facility] Comment on above: Performed By: #### L [id number] ####[facility] ([facility])[address] [facility] [address] Sodium [Moles/Vol] 136 mmol/L Normal 136-145 [facility] Comment on above: Performed By: #### L [id number] ####[facility] [facility] [place] [address] Urea nitrogen [Mass/Vol] 13 mg/dL Normal 7-25 [facility] Comment on above: Performed By: #### L [id number] ####[facility] ([facility])[address] [facility] [address] UREA NITROGEN/CREATININE (MASS RATIO) IN SER/PLAS 12.5 Normal [facility] Comment on above: Performed By: #### L [id number] ####[facility] ([facility])[address] [facility] [address] CBCon 07-04-2023 Erythrocyte distribution width (RBC) [Ratio] 15.8 % High 11.5-15.0 [facility] Comment on above: Performed By: #### L [id number] ####[facility] [facility] [address] ERYTHROCYTE MEAN CORPUSCULAR HEMOGLOBIN CONCENTRATION (G/DL) BY AUTOMATED 32.0 g/dL Normal 32.0-35.0 [facility] Comment on above: Performed By: #### L [id number] ####[facility] ([facility] [place] [address] Hematocrit (Bld) [Volume fraction] 24.7 % Low 39.0-55.0 [facility] Comment on above: Performed By: #### L [id number] ####[facility] ([facility] [place] [address] Hemoglobin (Bld) [Mass/Vol] 7.9 g/dL Low 13.0-17.0 [facility] Comment on above: Performed By: #### L [id number] ####[facility] ([facility])[address] [place] [address] MCH (RBC) [Entitic mass] 28.9 pg Normal 27.0-33.0 [facility] Comment on above: Performed By: #### L [id number] ####[facility] ([facility])[address] [place] [address] MCV (RBC) [Entitic vol] 90.5 fL Normal 82.0-98.0 [facility] Comment on above: Performed By: #### L [id number] ####[facility] ([facility])[address] [place] [address] PLATELETS (10*3/UL) IN BLOOD AUTOMATED COUNT 243 10*3/uL Normal 150-400 [facility] Comment on above: Performed By: #### L [id number] ####[facility] ([facility])[address] [place] [address] RBC (Bld) [#/Vol] 2.73 10*6/uL Low 4.20-5.70 [facility] Comment on above: Performed By: #### L [id number] ####[facility] ([facility])[address] [place] [address] WBC (Bld) [#/Vol] 5.14 10*3/uL Normal 4.00-10.60 [facility] Comment on above: Performed By: #### L [id number] ####[facility] ([facility])[address] [place] [address] MAGNESIUMon 07-04-2023 Magnesium [Mass/Vol] 1.9 mg/dL Normal 1.9-2.7 [facility] Comment on above: Performed By: #### L [id number] ####[facility] ([facility])[address] [place] [address] POCT GLUCOSE METER UNSOLICIT ED RESULTSon 07-04-2023 Glucose [Mass/Vol] 112 mg/dL High 70-105 [facility] Comment on above: Order Comment: Waive d Testing in the ED is performed under the ED CLIA certificate #[id number]. Result Comment: [email or web address] Performed By: #### L [id number] ####[facility] ([facility])[address] [place] [address] Glucose [Mass/Vol] 130 mg/dL High 70-105 [facility] Comment on above: Order Comment: Waive d Testing in the ED is performed under the ED CLIA certificate #[id number]. Result Comment: [email or web address] Performed By: #### L [id number] ####[facility] ([facility])[address] [place] [address] Glucose [Mass/Vol] 127 mg/dL High 70-105 [facility] Comment on above: Order Comment: Waive d Testing in the ED is performed under the ED CLIA certificate #[id number]. Result Comment: [email or web address] Performed By: #### L [id number] ####[facility] ([facility])[address] [place] [address] Glucose [Mass/Vol] 113 mg/dL High 70-105 [facility] Comment on above: Order Comment: Waive d Testing in the ED is performed under the ED CLIA certificate #[id number]. Result Comment: [email or web address] Performed By: #### L [id number] ####[facility] ([facility])[address] [place] [address] PROTIME-INRon 07-04-2023 INR IN PPP BY COAGULATION ASSAY 1.77 High 0.90-1.10 [facility] Comment on above: Result Comment: [...] CHEST 1995;108:231S-246S. Performed By: #### L [id number] ####[facility] ([facility])[address] [place] [address] PROTHROMBIN TIME (PT) IN PPP BY COAGULATION ASSAY 20.7 Seconds High 12.3-14.8 [facility] Comment on above: Performed By: #### L [id number] ####[facility] ([facility])[address] [place] [address] 30on 07-03-2023 30 Normal [facility] ANTI-XA (HEPARIN LEVEL)on HEPARIN UNFRACTIONATED (U/ML) IN PPP BY CHROMOGENIC METHOD 0.12 IU/mL Invalid Interpretation Code 0.3-0.7 [facility] Comment on above: Result Comment: Sofy roxaban and Apixaban will interfere with the anti Xa assay used to monitor UFH and LMWH. Performed By: #### L [id number] ####[facility] ([facility]ER)[address] [place] [address] BASIC METABOLIC PANELon 04-0 Anion gap [Moles/Vol] 11 mmol/L Normal 7-20 [facility] Comment on above: Performed By: #### L [id number] ####[facility] ([facility] [place] [address] Calcium [Mass/Vol] 8.9 mg/dL Normal 8.6-10.3 [facility] Comment on above: Performed By: #### L [id number] ####[facility] ([facility] [place] [address] Chloride [Moles/Vol] 101 mmol/L Normal 98-107 [facility] Comment on above: Performed By: #### L [id number] ####[facility] ([facility] [place] [address] CO2 [Moles/Vol] 28 mmol/L Normal 21-31 [facility] Comment on above: Performed By: #### L [id number] ####[facility] ([facility] [place] [address] Creatinine [Mass/Vol] 1.03 mg/dL Normal 0.70-1.30 [facility] Comment on above: Performed By: #### L [id number] ####[facility] ([facility] [place] [address] GLOMERULAR FILTRATION RATE ML/MIN/1.73 SQ M.PREDICTED 88.5 mL/min/1.73m*2 Normal >60.0 [facility] Comment on above: Result Comment: The [facility]???s estimated glomerular filtration rate (eGFR) [...] of individuals. Performed By: #### L [id number] ####[facility] ([facility])[address] [place] [address] Glucose [Mass/Vol] 87 mg/dL Normal 70-100 [facility] Comment on above: Performed By: #### L [id number] ####[facility] ([facility])[address] [place] [address] Potassium [Moles/Vol] 4.4 mmol/L Normal 3.5-5.1 [facility] Comment on above: Performed By: #### L [id number] ####[facility] ([facility])[address] [facility] [address] Sodium [Moles/Vol] 136 mmol/L Normal 136-145 [facility] Comment on above: Performed By: #### L [id number] ####[facility] ([facility])[address] [place] [address] Urea nitrogen [Mass/Vol] 13 mg/dL Normal 7-25 [facility] Comment on above: Performed By: #### L [id number] ####[facility] ([facility])[address] [facility] [address] UREA NITROGEN/CREATININE (MASS RATIO) IN SER/PLAS 12.6 Normal [facility] Comment on above: Performed By: #### L [id number] ####[facility] ([facility])[address] [place] [address] CBCon 07-03-2023 Erythrocyte distribution width (RBC) [Ratio] 15.5 % High 11.5-15.0 [facility] Comment on above: Performed By: #### L [id number] ####[facility] ([facility])[address] [place] [address] ERYTHROCYTE MEAN CORPUSCULAR HEMOGLOBIN CONCENTRATION (G/DL) BY AUTOMATED 31.9 g/dL Low 32.0-35.0 [facility] Comment on above: Performed By: #### L [id number] ####[facility] ([facility] [place] [address] Hematocrit (Bld) [Volume fraction] 25.4 % Low 39.0-55.0 [facility] Comment on above: Performed By: #### L [id number] ####[facility] ([facility] [place] [address] Hemoglobin (Bld) [Mass/Vol] 8.1 g/dL Low 13.0-17.0 [facility] Comment on above: Performed By: #### L [id number] ####[facility] ([facility])[address] [place], [place] [address] MCH (RBC) [Entitic mass] 28.8 pg Normal 27.0-33.0 [facility] Comment on above: Performed By: #### L [id number] ####[facility] ([facility])[address] [place] [address] MCV (RBC) [Entitic vol] 90.4 fL Normal 82.0-98.0 [facility] Comment on above: Performed By: #### L [id number] ####[facility] ([facility])[address] [place], [place] [address] PLATELETS (10*3/UL) IN BLOOD AUTOMATED COUNT 247 10*3/uL Normal 150-400 [facility] Comment on above: Performed By: #### L [id number] ####[facility] ([facility])[address] [place] [address] RBC (Bld) [#/Vol] 2.81 10*6/uL Low 4.20-5.70 [facility] Comment on above: Performed By: #### L [id number] ####[facility] ([facility])[address] [place] [address] WBC (Bld) [#/Vol] 4.31 10*3/uL Normal 4.00-10.60 [facility] Comment on above: Performed By: #### L [id number] ####[facility] ([facility])[address] [place] [address] MAGNESIUMon 07-03-2023 Magnesium [Mass/Vol] 2.0 mg/dL Normal 1.9-2.7 [facility] Comment on above: Performed By: #### L [id number] ####[facility] ([facility])[address] [place] [address] POCT GLUCOSE METER UNSOLICIT ED RESULTSon 07-03-2023 Glucose [Mass/Vol] 127 mg/dL High 70-105 [facility] Comment on above: Order Comment: Waive d Testing in the ED is performed under the ED CLIA certificate #[id number]. Result Comment: [email or web address] Performed By: #### L [id number] ####[facility] ([facility])[address] [place] [address] Glucose [Mass/Vol] 129 mg/dL High 70-105 [facility] Comment on above: Order Comment: Waive d Testing in the ED is performed under the ED CLIA certificate #[id number]. Result Comment: [email or web address] Performed By: #### L [id number] ####[facility] ([facility])[address] [place] [address] Glucose [Mass/Vol] 135 mg/dL High 70-105 [facility] Comment on above: Order Comment: Waive d Testing in the ED is performed under the ED CLIA certificate #[id number]. Result Comment: [email or web address] Performed By: #### L [id number] ####[facility] ([facility])[address] [place] [address] Glucose [Mass/Vol] 99 mg/dL Normal 70-105 [facility] Comment on above: Order Comment: Waive d Testing in the ED is performed under the ED CLIA certificate #[id number]. Result Comment: [email or web address] Performed By: #### L [id number] ####[facility] ([facility])[address] [place] [address] PROTIME-INRon 07-03-2023 INR IN PPP BY COAGULATION ASSAY 1.62 High 0.90-1.10 [facility] Comment on above: Result Comment: [...] CHEST 1995;108:231S-246S. Performed By: #### L [id number] ####[facility] ([employer])[address] [place] [address] PROTHROMBIN TIME (PT) IN PPP BY COAGULATION ASSAY 19.3 Seconds High 12.3-14.8 [facility] Comment on above: Performed By: #### L [id number] ####[facility] ([facility])[address] [place] [address] 30on 07-02-2023 30 The patient is Moder ately Stable - Low risk of patient condition declining or worsening The patient's goals for the shift include comfort, rest The clinical goals for the shift include Stable vitals, comfort Normal [facility] 30 Normal [facility] 30 Normal [facility] ANTI-XA (HEPARIN LEVEL)on HEPARIN UNFRACTIONATED (U/ML) IN PPP BY CHROMOGENIC METHOD 0.47 IU/mL Normal 0.3-0.7 [facility] Comment on above: Result Comment: Sofy roxaban and Apixaban will interfere with the anti Xa assay used to monitor UFH and LMWH. Performed By: #### L [id number] ####[facility] ([facility])[address] [place] [address] BASIC METABOLIC PANELon 04-0 Anion gap [Moles/Vol] 12 mmol/L Normal 7-20 [facility] Comment on above: Performed By: #### L [id number] ####[facility] ([facility])[address] [place] [address] Calcium [Mass/Vol] 8.9 mg/dL Normal 8.6-10.3 [facility] Comment on above: Performed By: #### L [id number] ####[facility] ([facility])[address] [place] [address] Chloride [Moles/Vol] 97 mmol/L Low 98-107 [facility] Comment on above: Performed By: #### L [id number] ####[facility] ([facility])[address] [place] [address] CO2 [Moles/Vol] 28 mmol/L Normal 21-31 [facility] Comment on above: Performed By: #### L [id number] ####[facility] ([facility])[address] [place] [address] Creatinine [Mass/Vol] 1.00 mg/dL Normal 0.70-1.30 [facility] Comment on above: Performed By: #### L [id number] ####[facility] ([facility])[address] [place] [address] GLOMERULAR FILTRATION RATE ML/MIN/1.73 SQ M.PREDICTED 91.7 mL/min/1.73m*2 Normal >60.0 [facility] Comment on above: Result Comment: The [facility]???s estimated glomerular filtration rate (eGFR) [...] of individuals. Performed By: #### L [id number] ####[facility] ([facility])[address] [place] [address] Glucose [Mass/Vol] 100 mg/dL Normal 70-100 [facility] Comment on above: Performed By: #### L [id number] ####[facility] ([facility])[address] [place] [address] Potassium [Moles/Vol] 3.9 mmol/L Normal 3.5-5.1 [facility] Comment on above: Performed By: #### L [id number] ####[facility] ([facility])[address] [place] [address] Sodium [Moles/Vol] 133 mmol/L Low 136-145 [facility] Comment on above: Performed By: #### L [id number] ####[facility] ([facility])[address] [place] [address] Urea nitrogen [Mass/Vol] 10 mg/dL Normal 7-25 [facility] Comment on above: Performed By: #### L [id number] ####[facility] ([facility])[address] [place] [address] UREA NITROGEN/CREATININE (MASS RATIO) IN SER/PLAS 10.0 Normal [facility] Comment on above: Performed By: #### L [id number] ####[facility] ([facility])[address] [place] [address] CBC WITH AUTO DIFFERENTIALon 07-02-2023 Basophils (Bld) [#/Vol] 0.05 10*3/uL Normal 0.00-0.20 [facility] Comment on above: Performed By: #### L [id number] ####[facility] ([facility])[address] [place] [address] Basophils/100 WBC (Bld) 0.9 % Normal 0.0-1.0 [facility] Comment on above: Performed By: #### L [id number] ####[facility] ([facility]AKER)[address] [place] [address] Eosinophils (Bld) [#/Vol] 0.27 10*3/uL Normal 0.00-0.50 [facility] Comment on above: Performed By: #### L [id number] ####[facility] ([facility])[address] [place] [address] Eosinophils/100 WBC (Bld) 4.6 % Normal 0.0-6.0 [facility] Comment on above: Performed By: #### L [id number] ####[facility] ([facility])[address] [place] [address] Erythrocyte distribution width (RBC) [Ratio] 15.4 % High 11.5-15.0 [facility] Comment on above: Performed By: #### L [id number] ####[facility] ([facility])[address] [place] [address] ERYTHROCYTE MEAN CORPUSCULAR HEMOGLOBIN CONCENTRATION (G/DL) BY AUTOMATED 32.7 g/dL Normal 32.0-35.0 [facility] Comment on above: Performed By: #### L [id number] ####[facility] ([facility])[address] [place] [address] Hematocrit (Bld) [Volume fraction] 27.2 % Low 39.0-55.0 [facility] Comment on above: Performed By: #### L [id number] ####[facility] [place] [address] Hemoglobin (Bld) [Mass/Vol] 8.9 g/dL Low 13.0-17.0 [facility] Comment on above: Performed By: #### L [id number] ####[facility] ([facility])[address] [place] [address] Immature granulocytes (Bld) [#/Vol] 0.04 10*3/uL Normal 0.00-0.20 [facility] Comment on above: Performed By: #### L [id number] ####[facility] ([facility]ER)[address] [place] [address] Immature granulocytes/100 WBC (Bld) 0.7 % Normal 0.0-1.0 [facility] Comment on above: Performed By: #### L [id number] ####[facility] ([facility])[address] [place] [address] Lymphocytes (Bld) [#/Vol] 1.10 10*3/uL Low 1.20-4.00 [facility] Comment on above: Performed By: #### L [id number] ####[facility] [place] [address] Lymphocytes/100 WBC (Bld) 18.8 % Low 20.0-45.0 [facility] Comment on above: Performed By: #### L [id number] ####[facility] [place] [address] MCH (RBC) [Entitic mass] 29.0 pg Normal 27.0-33.0 [facility] Comment on above: Performed By: #### L [id number] ####[facility] ([facility]ER)[address] [place] [address] MCV (RBC) [Entitic vol] 88.6 fL Normal 82.0-98.0 [facility] Comment on above: Performed By: #### L [id number] ####[facility] ([facility]ER)[address] [place] [address] Monocytes (Bld) [#/Vol] 0.73 10*3/uL Normal 0.10-1.00 [facility] Comment on above: Performed By: #### L [id number] ####[facility] ([facility])[address] [place] [address] Monocytes/100 WBC (Bld) 12.5 % High 5.0-12.0 [facility] Comment on above: Performed By: #### L [id number] ####[facility] ([facility])[address] [place] [address] Neutrophils (Bld) [#/Vol] 3.67 10*3/uL Normal 1.60-7.60 [facility] Comment on above: Performed By: #### L [id number] ####[facility] ([facility]ER)[address] [place] [address] Neutrophils/100 WBC (Bld) 62.5 % Normal 40.0-72.0 [facility] Comment on above: Performed By: #### L [id number] ####[facility] ([facility])[address] [place] [address] NRBC (PER 100 WBCS) BY AUTOMATED COUNT 0.0 % Normal 0 [facility] Comment on above: Performed By: #### L [id number] ####[facility] ([facility])[address] [place] [address] PLATELETS (10*3/UL) IN BLOOD AUTOMATED COUNT 292 10*3/uL Normal 150-400 [facility] Comment on above: Performed By: #### L [id number] ####[facility] ([facility])[address] [place] [address] RBC (Bld) [#/Vol] 3.07 10*6/uL Low 4.20-5.70 [facility] Comment on above: Performed By: #### L [id number] ####[facility] ([facility])[address] [place] [address] WBC (Bld) [#/Vol] 5.86 10*3/uL Normal 4.00-10.60 [facility] Comment on above: Performed By: #### L [id number] ####[facility] ([facility])[address] [place] [address] MAGNESIUMon 07-02-2023 Magnesium [Mass/Vol] 2.0 mg/dL Normal 1.9-2.7 [facility] Comment on above: Performed By: #### L [id number] ####[facility] ([facility])[address] [place] [address] NURSNOTEon 07-02-2023 NURSNOTE Heparin level 0.47, no need for rate change at this time. Safety Maintained. Normal [facility] POCT GLUCOSE METER UNSOLICIT ED RESULTSon 07-02-2023 Glucose [Mass/Vol] 118 mg/dL High 70-105 [facility] Comment on above: Order Comment: Waive d Testing in the ED is performed under the ED CLIA certificate #[id number]. Result Comment: [email or web address] Performed By: #### L [id number] ####[facility] ([facility])[address] [facility] [address] Glucose [Mass/Vol] 154 mg/dL High 70-105 [facility] Comment on above: Order Comment: Waive d Testing in the ED is performed under the ED CLIA certificate #[id number]. Result Comment: [email or web address] Performed By: #### L [id number] ####[facility] ([facility])[address] [facility] [address] Glucose [Mass/Vol] 138 mg/dL High 70-105 [facility] Comment on above: Order Comment: Waive d Testing in the ED is performed under the ED CLIA certificate #[id number]. Result Comment: [email or web address] Performed By: #### L [id number] ####[facility] ([facility])[address] CULLENSeeFutureCHAN [facility]ON[place] [address] Glucose [Mass/Vol] 106 mg/dL High 70-105 [facility] Comment on above: Order Comment: Waive d Testing in the ED is performed under the ED CLIA certificate #[id number]. Result Comment: [email or web address] Performed By: #### L [id number] ####[facility] ([facility])[address] CitysearchCH[facility]ON[place] [address] PROTIME-INRon 07-02-2023 INR IN PPP BY COAGULATION ASSAY 1.45 High 0.90-1.10 [facility] Comment on above: Result Comment: [...] CHEST 1995;108:231S-246S. Performed By: #### L [id number] ####[facility] [employer])[address] [place] [address] PROTHROMBIN TIME (PT) IN PPP BY COAGULATION ASSAY 17.7 Seconds High 12.3-14.8 [facility] Comment on above: Performed By: #### L [id number] ####[facility] [employer])[address] [place] [address] 30on 07-01-2023 30 Normal [facility] 30 Normal [facility] 30 Normal [facility] 30 The patient is Moder ately Stable - Low risk of patient condition declining or worsening The patient's goals for the shift include comfort The clinical goals for the shift include safety Normal [facility] ANTI-XA (HEPARIN LEVEL)on HEPARIN UNFRACTIONATED (U/ML) IN PPP BY CHROMOGENIC METHOD 0.38 IU/mL Normal 0.3-0.7 [facility] Comment on above: Result Comment: Mcintosh roxaban and Apixaban will interfere with the anti Xa assay used to monitor UFH and LMWH. Performed By: #### L [id number] ####[facility] [employer])[address] [place] [address] BASIC METABOLIC PANELon 04-0 Anion gap [Moles/Vol] 12 mmol/L Normal 7-20 [facility] Comment on above: Performed By: #### L [id number] ####[facility] (BEAKER)[address] [place] [address] Calcium [Mass/Vol] 8.6 mg/dL Normal 8.6-10.3 [facility] Comment on above: Performed By: #### L [id number] ####[facility] (BEAKER)[address] [place] [address] Chloride [Moles/Vol] 95 mmol/L Low 98-107 [facility] Comment on above: Performed By: #### L [id number] ####[facility] (BEAKER)[address] [place] [address] CO2 [Moles/Vol] 30 mmol/L Normal 21-31 [facility] Comment on above: Performed By: #### L [id number] ####[facility] (BEAKER)[address] [place] [address] Creatinine [Mass/Vol] 0.89 mg/dL Normal 0.70-1.30 [facility] Comment on above: Performed By: #### L [id number] ####[facility] ([facility] [place] [address] GLOMERULAR FILTRATION RATE ML/MIN/1.73 SQ M.PREDICTED 104.4 mL/min/1.73m*2 Normal >60.0 [facility] Comment on above: Result Comment: The [facility]???s estimated glomerular filtration rate (eGFR) [...] of individuals. Performed By: #### L [id number] ####[facility] (BEAKER)[address] [place] [address] Glucose [Mass/Vol] 95 mg/dL Normal 70-100 [facility] Comment on above: Performed By: #### L [id number] ####[facility] (BEAKER)[address] [place] [address] Potassium [Moles/Vol] 3.6 mmol/L Normal 3.5-5.1 [facility] Comment on above: Performed By: #### L [id number] ####[facility] (BEAKER)[address] [place] [address] Sodium [Moles/Vol] 133 mmol/L Low 136-145 [facility] Comment on above: Performed By: #### L [id number] ####[facility] (BEAKER)[address] [place] [address] Urea nitrogen [Mass/Vol] 9 mg/dL Normal 7-25 [facility] Comment on above: Performed By: #### L [id number] ####[facility] (BEAKER)[address] [place] [address] UREA NITROGEN/CREATININE (MASS RATIO) IN SER/PLAS 10.1 Normal [facility] Comment on above: Performed By: #### L [id number] ####[facility] (BEAKER)[address] [place] [address] CBCon 07-01-2023 Erythrocyte distribution width (RBC) [Ratio] 15.3 % High 11.5-15.0 [facility] Comment on above: Performed By: #### L [id number] ####[facility] (BEAKER)[address] [place] [address] ERYTHROCYTE MEAN CORPUSCULAR HEMOGLOBIN CONCENTRATION (G/DL) BY AUTOMATED 33.1 g/dL Normal 32.0-35.0 [facility] Comment on above: Performed By: #### L [id number] ####[facility] (BEAKER)[address] [place] [address] Hematocrit (Bld) [Volume fraction] 24.2 % Low 39.0-55.0 [facility] Comment on above: Performed By: #### L [id number] ####[facility] ([facility])[address] [place] [address] Hemoglobin (Bld) [Mass/Vol] 8.0 g/dL Low 13.0-17.0 [facility] Comment on above: Performed By: #### L [id number] ####[facility] ([facility])[address] [place] [address] MCH (RBC) [Entitic mass] 29.1 pg Normal 27.0-33.0 [facility] Comment on above: Performed By: #### L [id number] ####[facility] ([facility])[address] [place] [address] MCV (RBC) [Entitic vol] 88.0 fL Normal 82.0-98.0 [facility] Comment on above: Performed By: #### L [id number] ####[facility] ([facility])[address] [place] [address] PLATELETS (10*3/UL) IN BLOOD AUTOMATED COUNT 218 10*3/uL Normal 150-400 [facility] Comment on above: Performed By: #### L [id number] ####[facility] ([facility])[address] [place] [address] RBC (Bld) [#/Vol] 2.75 10*6/uL Low 4.20-5.70 [facility] Comment on above: Performed By: #### L [id number] ####[facility] ([facility])[address] [place] [address] WBC (Bld) [#/Vol] 4.96 10*3/uL Normal 4.00-10.60 [facility] Comment on above: Performed By: #### L [id number] ####[facility] ([facility] [place] [address] CONSULTon 07-01-2023 CONSULT Normal [facility] MAGNESIUMon 07-01-2023 Magnesium [Mass/Vol] 2.0 mg/dL Normal 1.9-2.7 [facility] Comment on above: Performed By: #### L [id number] ####[facility] ([facility])[address] [place] [address] POCT GLUCOSE METER UNSOLICIT ED RESULTSon 07-01-2023 Glucose [Mass/Vol] 128 mg/dL High 70-105 [facility] Comment on above: Order Comment: Waive d Testing in the ED is performed under the ED CLIA certificate #[id number]. Result Comment: [email or web address] Performed By: #### L [id number] ####[facility] ([facility])[address] [place] [address] Glucose [Mass/Vol] 119 mg/dL High 70-105 [facility] Comment on above: Order Comment: Waive d Testing in the ED is performed under the ED CLIA certificate #[id number]. Result Comment: [email or web address] Performed By: #### L [id number] ####[facility] ([facility])[address] [place] [address] Glucose [Mass/Vol] 151 mg/dL High 70-105 [facility] Comment on above: Order Comment: Waive d Testing in the ED is performed under the ED CLIA certificate #[id number]. Result Comment: [email or web address] Performed By: #### L [id number] ####[facility] ([facility])[address] [place] [address] Glucose [Mass/Vol] 119 mg/dL High 70-105 [facility] Comment on above: Order Comment: Waive d Testing in the ED is performed under the ED CLIA certificate #[id number]. Result Comment: [email or web address] Performed By: #### L [id number] ####[facility] ([facility])[address] [place] [address] Glucose [Mass/Vol] 121 mg/dL High 70-105 [facility] Comment on above: Order Comment: Waive d Testing in the ED is performed under the ED CLIA certificate #[id number]. Result Comment: [email or web address] Performed By: #### L [id number] ####[facility] (DAMARIS)[address] [place] [address] PROTIME-INRon 07-01-2023 INR IN PPP BY COAGULATION ASSAY 1.37 High 0.90-1.10 [facility] Comment on above: Result Comment: [...] CHEST 1995;108:231S-246S. Performed By: #### L [id number] ####[facility] (BambisaBRENDA)[address] [place] [address] PROTHROMBIN TIME (PT) IN PPP BY COAGULATION ASSAY 16.9 Seconds High 12.3-14.8 [facility] Comment on above: Performed By: #### L [id number] ####[facility] (DAMARIS)[address] [place] [address] 30on 06-30-2023 30 Normal [facility] ANTI-XA (HEPARIN LEVEL)on HEPARIN UNFRACTIONATED (U/ML) IN PPP BY CHROMOGENIC METHOD 0.39 IU/mL Normal 0.3-0.7 [facility] Comment on above: Result Comment: Sofy roxaban and Apixaban will interfere with the anti Xa assay used to monitor UFH and LMWH. Performed By: #### L [id number] ####[facility] (BEAKER)[address] [place] [address] BASIC METABOLIC PANELon 03-3 Anion gap [Moles/Vol] 11 mmol/L Normal 7-20 [facility] Comment on above: Performed By: #### L [id number] ####[facility] (BEAKER)[address] [place] [address] Calcium [Mass/Vol] 8.9 mg/dL Normal 8.6-10.3 [facility] Comment on above: Performed By: #### L [id number] ####[facility] (BEAKER)[address] [place] [address] Chloride [Moles/Vol] 96 mmol/L Low 98-107 [facility] Comment on above: Performed By: #### L [id number] ####[facility] (BEAKER)[address] [place] [address] CO2 [Moles/Vol] 30 mmol/L Normal 21-31 [facility] Comment on above: Performed By: #### L [id number] ####[facility] (BEAKER)[address] [place] [address] Creatinine [Mass/Vol] 0.78 mg/dL Normal 0.70-1.30 [facility] Comment on above: Performed By: #### L [id number] ####[facility] (BEAKER)[address] [place] [address] GLOMERULAR FILTRATION RATE ML/MIN/1.73 SQ M.PREDICTED 108.6 mL/min/1.73m*2 Normal >60.0 [facility] Comment on above: Result Comment: The [facility]???s estimated glomerular filtration rate (eGFR) [...] of individuals. Performed By: #### L [id number] ####[facility] ([facility] [place] [address] Glucose [Mass/Vol] 108 mg/dL High 70-100 [facility] Comment on above: Performed By: #### L [id number] ####[facility] ([facility] [place] [address] Potassium [Moles/Vol] 3.9 mmol/L Normal 3.5-5.1 [facility] Comment on above: Performed By: #### L [id number] ####[facility] ([facility])[address] [place] [address] Sodium [Moles/Vol] 133 mmol/L Low 136-145 [facility] Comment on above: Performed By: #### L [id number] ####[facility] ([facility])[address] [facility] [address] Urea nitrogen [Mass/Vol] 9 mg/dL Normal 7-25 [facility] Comment on above: Performed By: #### L [id number] ####[facility] (BEAKER)[address] [place] [address] UREA NITROGEN/CREATININE (MASS RATIO) IN SER/PLAS 11.5 Normal [facility] Comment on above: Performed By: #### L [id number] ####[facility] (BEAKER)[address] [place] [address] CBCon 06-30-2023 Erythrocyte distribution width (RBC) [Ratio] 15.4 % High 11.5-15.0 [facility] Comment on above: Performed By: #### L [id number] ####[facility] (BEAKER)[address] [facility] [address] ERYTHROCYTE MEAN CORPUSCULAR HEMOGLOBIN CONCENTRATION (G/DL) BY AUTOMATED 33.6 g/dL Normal 32.0-35.0 [facility] Comment on above: Performed By: #### L [id number] ####[facility] ([facility])[address] [place] [address] Hematocrit (Bld) [Volume fraction] 24.4 % Low 39.0-55.0 [facility] Comment on above: Performed By: #### L [id number] ####[facility] ([facility])[address] [place] [address] Hemoglobin (Bld) [Mass/Vol] 8.2 g/dL Low 13.0-17.0 [facility] Comment on above: Performed By: #### L [id number] ####[facility] ([facility])[address] [place] [address] MCH (RBC) [Entitic mass] 28.9 pg Normal 27.0-33.0 [facility] Comment on above: Performed By: #### L [id number] ####[facility] ([facility])[address] [place] [address] MCV (RBC) [Entitic vol] 85.9 fL Normal 82.0-98.0 [facility] Comment on above: Performed By: #### L [id number] ####[facility] ([facility])[address] [place] [address] PLATELETS (10*3/UL) IN BLOOD AUTOMATED COUNT 203 10*3/uL Normal 150-400 [facility] Comment on above: Performed By: #### L [id number] ####[facility] ([facility])[address] [place] [address] RBC (Bld) [#/Vol] 2.84 10*6/uL Low 4.20-5.70 [facility] Comment on above: Performed By: #### L [id number] ####[facility] (BEAKER)[address] [place] [address] WBC (Bld) [#/Vol] 6.03 10*3/uL Normal 4.00-10.60 [facility] Comment on above: Performed By: #### L [id number] ####[facility] ([facility])[address] [place] [address] CKon 06-30-2023 CREATINE KINASE (U/L) IN SER/PLAS 144.0 U/L Normal 30.0-223.0 [facility] Comment on above: Performed By: #### L [id number] ####[facility] ([facility])[address] [place] [address] MAGNESIUMon 06-30-2023 Magnesium [Mass/Vol] 2.1 mg/dL Normal 1.9-2.7 [facility] Comment on above: Performed By: #### L [id number] ####[facility] ([facility])[address] [place] [address] Magnesium [Mass/Vol] 2.2 mg/dL Normal 1.9-2.7 [facility] Comment on above: Performed By: #### L [id number] ####[facility] ([facility])[address] [place] [address] POCT GLUCOSE METER UNSOLICIT ED RESULTSon 06-30-2023 Glucose [Mass/Vol] 243 mg/dL High 70-105 [facility] Comment on above: Order Comment: Waive d Testing in the ED is performed under the ED CLIA certificate #[id number]. Result Comment: [email or web address] Performed By: #### L [id number] ####[facility] ([facility])[address] [place] [address] Glucose [Mass/Vol] 112 mg/dL High 70-105 [facility] Comment on above: Order Comment: Waive d Testing in the ED is performed under the ED CLIA certificate #[id number]. Result Comment: [email or web address] Performed By: #### L [id number] ####[facility] ([facility])[address] [place] [address] Glucose [Mass/Vol] 124 mg/dL High 70-105 [facility] Comment on above: Order Comment: Waive d Testing in the ED is performed under the ED CLIA certificate #[id number]. Result Comment: [email or web address] Performed By: #### L [id number] ####[facility] [place] [address] Glucose [Mass/Vol] 158 mg/dL High 70-105 [facility] Comment on above: Order Comment: Waive d Testing in the ED is performed under the ED CLIA certificate #[id number]. Result Comment: [email or web address] Performed By: #### L [id number] ####[facility] (Microsa[employer])[address] [place] [address] POTASSIUMon 06-30-2023 Potassium [Moles/Vol] 4.0 mmol/L Normal 3.5-5.1 [facility] Comment on above: Performed By: #### L [id number] ####[facility] ([facility])[address] [place] [address] PROTIME-INRon 06-30-2023 INR IN PPP BY COAGULATION ASSAY 1.21 High 0.90-1.10 [facility] Comment on above: Result Comment: [...] CHEST 1995;108:231S-246S. Performed By: #### L [id number] ####[facility] ([facility])[address] [place] [address] PROTHROMBIN TIME (PT) IN PPP BY COAGULATION ASSAY 15.4 Seconds High 12.3-14.8 [facility] Comment on above: Performed By: #### L [id number] ####[facility] ([facility])[address] [place] [address] 30on 06-29-2023 30 Normal [facility] 30 Normal [facility] ANTI-XA (HEPARIN LEVEL)on HEPARIN UNFRACTIONATED (U/ML) IN PPP BY CHROMOGENIC METHOD 0.30 IU/mL Normal 0.3-0.7 [facility] Comment on above: Result Comment: Sofy roxaban and Apixaban will interfere with the anti Xa assay used to monitor UFH and LMWH. Performed By: #### L [id number] ####[facility] ([facility])[address] [place] [address] HEPARIN UNFRACTIONATED (U/ML) IN PPP BY CHROMOGENIC METHOD 0.31 IU/mL Normal 0.3-0.7 [facility] Comment on above: Result Comment: Mcintosh roxaban and Apixaban will interfere with the anti Xa assay used to monitor UFH and LMWH. Performed By: #### L [id number] ####[facility] ([facility])[address] [place] [address] BASIC METABOLIC PANELon 06-01 Anion gap [Moles/Vol] 10 mmol/L Normal 7-20 [facility] Comment on above: Performed By: #### L [id number] ####[facility] ([facility])[address] [place] [address] Calcium [Mass/Vol] 8.3 mg/dL Low 8.6-10.3 [facility] Comment on above: Performed By: #### L [id number] ####[facility] ([facility])[address] [place] [address] Chloride [Moles/Vol] 96 mmol/L Low 98-107 [facility] Comment on above: Performed By: #### L [id number] ####[facility] ([facility])[address] [place] [address] CO2 [Moles/Vol] 29 mmol/L Normal 21-31 [facility] Comment on above: Performed By: #### L [id number] ####[facility] ([facility])[address] [place] [address] Creatinine [Mass/Vol] 0.74 mg/dL Normal 0.70-1.30 [facility] Comment on above: Performed By: #### L [id number] ####[facility] ([facility])[address] [place] [address] GLOMERULAR FILTRATION RATE ML/MIN/1.73 SQ M.PREDICTED 110.4 mL/min/1.73m*2 Normal >60.0 [facility] Comment on above: Result Comment: The [facility]???s estimated glomerular filtration rate (eGFR) [...] of individuals. Performed By: #### L [id number] ####[facility] ([facility] [place] [address] Glucose [Mass/Vol] 107 mg/dL High 70-100 [facility] Comment on above: Performed By: #### L [id number] ####[facility] ([facility] [place] [address] Potassium [Moles/Vol] 4.3 mmol/L Normal 3.5-5.1 [facility] Comment on above: Performed By: #### L [id number] ####[facility] (BEAKER)[address] [place] [address] Sodium [Moles/Vol] 131 mmol/L Low 136-145 [facility] Comment on above: Performed By: #### L [id number] ####[facility] (BEAKER)[address] [place] [address] Urea nitrogen [Mass/Vol] 9 mg/dL Normal 7-25 [facility] Comment on above: Performed By: #### L [id number] ####[facility] ([facility])[address] [place] [address] UREA NITROGEN/CREATININE (MASS RATIO) IN SER/PLAS 12.2 Normal [facility] Comment on above: Performed By: #### L [id number] ####[facility] ([facility])[address] [address] CBCon 06-29-2023 Erythrocyte distribution width (RBC) [Ratio] 15.8 % High 11.5-15.0 [facility] Comment on above: Performed By: #### L [id number] ####[facility] ([facility])[address] [address] ERYTHROCYTE MEAN CORPUSCULAR HEMOGLOBIN CONCENTRATION (G/DL) BY AUTOMATED 33.6 g/dL Normal 32.0-35.0 [facility] Comment on above: Performed By: #### L [id number] ####[facility] (BEAKER)[address] [place] [address] Hematocrit (Bld) [Volume fraction] 23.5 % Low 39.0-55.0 [facility] Comment on above: Performed By: #### L [id number] ####[facility] (BEAKER)[address] [place], [place] [address] Hemoglobin (Bld) [Mass/Vol] 7.9 g/dL Low 13.0-17.0 [facility] Comment on above: Performed By: #### L [id number] ####[facility] (BEAKER)[address] [address] MCH (RBC) [Entitic mass] 29.5 pg Normal 27.0-33.0 [facility] Comment on above: Performed By: #### L [id number] ####[facility] ([facility])[address] [place] [address] MCV (RBC) [Entitic vol] 87.7 fL Normal 82.0-98.0 [facility] Comment on above: Performed By: #### L [id number] ####[facility] ([facility])[address] [place] [address] PLATELETS (10*3/UL) IN BLOOD AUTOMATED COUNT 161 10*3/uL Normal 150-400 [facility] Comment on above: Performed By: #### L [id number] ####[facility] ([facility])[address] [place] [address] RBC (Bld) [#/Vol] 2.68 10*6/uL Low 4.20-5.70 [facility] Comment on above: Performed By: #### L [id number] ####[facility] ([facility])[address] [place] [address] WBC (Bld) [#/Vol] 6.52 10*3/uL Normal 4.00-10.60 [facility] Comment on above: Performed By: #### L [id number] ####[facility] ([facility])[address] [place] [address] MAGNESIUMon 06-29-2023 Magnesium [Mass/Vol] 2.3 mg/dL Normal 1.9-2.7 [facility] Comment on above: Performed By: #### L [id number] ####[facility] ([facility])[address] [place] [address] Magnesium [Mass/Vol] 2.0 mg/dL Normal 1.9-2.7 [facility] Comment on above: Performed By: #### L [id number] ####[facility] ([facility] [place] [address] NURSNOTEon 06-29-2023 NURSNOTE Normal [facility] PHOSPHORUSon 06-29-2023 Magnesium [Mass/Vol] 3.2 mg/dL Normal 2.5-5.0 [facility] Comment on above: Performed By: #### L [id number] ####[facility] ([facility])[address] [place] [address] POCT GLUCOSE METER UNSOLICIT ED RESULTSon 06-29-2023 Glucose [Mass/Vol] 129 mg/dL High 70-105 [facility] Comment on above: Order Comment: Waive d Testing in the ED is performed under the ED CLIA certificate #[id number]. Result Comment: [email or web address] Performed By: #### L [id number] ####[facility] ([facility])[address] [place] [address] Glucose [Mass/Vol] 108 mg/dL High 70-105 [facility] Comment on above: Order Comment: Waive d Testing in the ED is performed under the ED CLIA certificate #[id number]. Result Comment: [email or web address] Performed By: #### L [id number] ####[facility] ([facility])[address] [facility] [place] [address] Glucose [Mass/Vol] 142 mg/dL High 70-105 [facility] Comment on above: Order Comment: Waive d Testing in the ED is performed under the ED CLIA certificate #[id number]. Result Comment: [email or web address] Performed By: #### L [id number] ####[facility] ([facility])[address] [place] [address] Glucose [Mass/Vol] 136 mg/dL High 70-105 [facility] Comment on above: Order Comment: Waive d Testing in the ED is performed under the ED CLIA certificate #[id number]. Result Comment: [email or web address] Performed By: #### L [id number] ####[facility] ([facility] [place] [address] POTASSIUMon 06-29-2023 Potassium [Moles/Vol] 4.3 mmol/L Normal 3.5-5.1 [facility] Comment on above: Performed By: #### L [id number] ####[facility] ([facility])[address] [place] [address] PROTIME-INRon 06-29-2023 INR IN PPP BY COAGULATION ASSAY 1.13 High 0.90-1.10 [facility] Comment on above: Result Comment: [...] CHEST 1995;108:231S-246S. Performed By: #### L [id number] ####[facility] ([facility])[address] [place] [address] PROTHROMBIN TIME (PT) IN PPP BY COAGULATION ASSAY 14.5 Seconds Normal 12.3-14.8 [facility] Comment on above: Performed By: #### L [id number] ####[facility] ([facility])[address] [place] [address] 30on 06-28-2023 30 Normal [facility] 30 Normal [facility] ANTI-XA (HEPARIN LEVEL)on HEPARIN UNFRACTIONATED (U/ML) IN PPP BY CHROMOGENIC METHOD 0.25 IU/mL Low 0.3-0.7 [facility] Comment on above: Result Comment: Mcintosh roxaban and Apixaban will interfere with the anti Xa assay used to monitor UFH and LMWH. Performed By: #### L [id number] ####[facility] ([facility])[address] [place] [address] HEPARIN UNFRACTIONATED (U/ML) IN PPP BY CHROMOGENIC METHOD 0.16 IU/mL Invalid Interpretation Code 0.3-0.7 [facility] Comment on above: Result Comment: Sofy roxaban and Apixaban will interfere with the anti Xa assay used to monitor UFH and LMWH. Performed By: #### L [id number] ####[facility] ([facility])[address] [place] [address] HEPARIN UNFRACTIONATED (U/ML) IN PPP BY CHROMOGENIC METHOD <0.10 Invalid Interpretation Code 0.3-0.7 [facility] Comment on above: Order Comment: Check anti-Xa level every 6 hours while on heparin infusion, or per protocol. Result Comment: Mcintosh roxaban and Apixaban will interfere with the anti Xa assay used to monitor UFH and LMWH. Performed By: #### L [id number] ####[facility] ([facility])[address] [place] [address] APTTon 06-28-2023 ACTIVATED PARTIAL THROMBOPLASTIN TIME IN PPP BY COAGULATION ASSAY 31.5 Seconds Normal 25.0-35.0 [facility] Comment on above: Order Comment: Basel ine aPTT before initiating heparin infusion. Result Comment: Clin ical significance of the APTT is questionable in the presence of heparin. Performed By: #### L [id number] ####[facility] ([facility])[address] [place] [address] BASIC METABOLIC PANELon - Anion gap [Moles/Vol] 14 mmol/L Normal 7-20 [facility] Comment on above: Performed By: #### L [id number] ####[facility] ([facility])[address] [place] [address] Calcium [Mass/Vol] 8.1 mg/dL Low 8.6-10.3 [facility] Comment on above: Performed By: #### L [id number] ####[facility] ([facility])[address] [place] [address] Chloride [Moles/Vol] 95 mmol/L Low 98-107 [facility] Comment on above: Performed By: #### L [id number] ####[facility] ([facility])[address] [place] [address] CO2 [Moles/Vol] 25 mmol/L Normal 21-31 [facility] Comment on above: Performed By: #### L [id number] ####[facility] ([facility] [place] [address] Creatinine [Mass/Vol] 0.69 mg/dL Low 0.70-1.30 [facility] Comment on above: Performed By: #### L [id number] ####[facility] ([facility])[address] [place] [address] GLOMERULAR FILTRATION RATE ML/MIN/1.73 SQ M.PREDICTED 112.7 mL/min/1.73m*2 Normal >60.0 [facility] Comment on above: Result Comment: The [facility]???s estimated glomerular filtration rate (eGFR) [...] of individuals. Performed By: #### L [id number] ####[facility] ([facility] [place] [address] Glucose [Mass/Vol] 103 mg/dL High 70-100 [facility] Comment on above: Performed By: #### L [id number] ####[facility] ([facility])[address] [place] [address] Potassium [Moles/Vol] 3.9 mmol/L Normal 3.5-5.1 [facility] Comment on above: Performed By: #### L [id number] ####[facility] ([facility])[address] [place] [address] Sodium [Moles/Vol] 130 mmol/L Low 136-145 [facility] Comment on above: Performed By: #### L [id number] ####[facility] ([facility])[address] [place] [address] Urea nitrogen [Mass/Vol] 10 mg/dL Normal 7-25 [facility] Comment on above: Performed By: #### L [id number] ####[facility] ([facility] [place] [address] UREA NITROGEN/CREATININE (MASS RATIO) IN SER/PLAS 14.5 Normal [facility] Comment on above: Performed By: #### L [id number] ####[facility] ([facility])[address] [place] [address] Anion gap [Moles/Vol] 8 mmol/L Normal 7-20 [facility] Comment on above: Performed By: #### L [id number] ####[facility] ([facility])[address] [place] [address] Calcium [Mass/Vol] 8.1 mg/dL Low 8.6-10.3 [facility] Comment on above: Performed By: #### L [id number] ####[facility] ([facility])[address] [place] [address] Chloride [Moles/Vol] 98 mmol/L Normal 98-107 [facility] Comment on above: Performed By: #### L [id number] ####[facility] ([facility])[address] [place] [address] CO2 [Moles/Vol] 29 mmol/L Normal 21-31 [facility] Comment on above: Performed By: #### L [id number] ####[facility] ([facility])[address] [place] [address] Creatinine [Mass/Vol] 0.73 mg/dL Normal 0.70-1.30 [facility] Comment on above: Performed By: #### L [id number] ####[facility] ([facility])[address] [place] [address] GLOMERULAR FILTRATION RATE ML/MIN/1.73 SQ M.PREDICTED 110.8 mL/min/1.73m*2 Normal >60.0 [facility] Comment on above: Result Comment: The [facility]???s estimated glomerular filtration rate (eGFR) [...] of individuals. Performed By: #### L [id number] ####[facility] ([facility])[address] [place] [address] Glucose [Mass/Vol] 118 mg/dL High 70-100 [facility] Comment on above: Performed By: #### L [id number] ####[facility] ([facility])[address] [place] [address] Potassium [Moles/Vol] 3.8 mmol/L Normal 3.5-5.1 [facility] Comment on above: Performed By: #### L [id number] ####[facility] ([facility])[address] [place] [address] Sodium [Moles/Vol] 131 mmol/L Low 136-145 [facility] Comment on above: Performed By: #### L [id number] ####[facility] ([facility])[address] [place] [address] Urea nitrogen [Mass/Vol] 10 mg/dL Normal 7-25 [facility] Comment on above: Performed By: #### L [id number] ####[facility] ([facility])[address] [place] [address] UREA NITROGEN/CREATININE (MASS RATIO) IN SER/PLAS 13.7 Normal [facility] Comment on above: Performed By: #### L [id number] ####[facility] ([facility])[address] [place] [address] CBCon 06-28-2023 Erythrocyte distribution width (RBC) [Ratio] 15.6 % High 11.5-15.0 [facility] Comment on above: Performed By: #### L [id number] ####[facility] ([facility])[address] [place] [address] ERYTHROCYTE MEAN CORPUSCULAR HEMOGLOBIN CONCENTRATION (G/DL) BY AUTOMATED 33.8 g/dL Normal 32.0-35.0 [facility] Comment on above: Performed By: #### L [id number] ####[facility] ([facility])[address] [place] [address] Hematocrit (Bld) [Volume fraction] 20.4 % Low 39.0-55.0 [facility] Comment on above: Performed By: #### L [id number] ####[facility] ([facility])[address] [place] [address] Hemoglobin (Bld) [Mass/Vol] 6.9 g/dL Low 13.0-17.0 [facility] Comment on above: Performed By: #### L [id number] ####[facility] ([facility])[address] [place] [address] IMMATURE PLATELET FRACTION % 5.6 % Normal 0.8-6.3 [facility] Comment on above: Performed By: #### L [id number] ####[facility] ([facility] [place] [address] MCH (RBC) [Entitic mass] 29.5 pg Normal 27.0-33.0 [facility] Comment on above: Performed By: #### L [id number] ####[facility] ([facility] [place] [address] MCV (RBC) [Entitic vol] 87.2 fL Normal 82.0-98.0 [facility] Comment on above: Performed By: #### L [id number] ####[facility] ([facility])[address] [place] [address] PLATELETS (10*3/UL) IN BLOOD AUTOMATED COUNT 127 10*3/uL Low 150-400 [facility] Comment on above: Performed By: #### L [id number] ####[facility] ([facility])[address] [place] [address] RBC (Bld) [#/Vol] 2.34 10*6/uL Low 4.20-5.70 [facility] Comment on above: Performed By: #### L [id number] ####[facility] ([facility])[address] [place] [address] WBC (Bld) [#/Vol] 6.57 10*3/uL Normal 4.00-10.60 [facility] Comment on above: Performed By: #### L [id number] ####[facility] ([facility])[address] [place] [address] CKon 06-28-2023 CREATINE KINASE (U/L) IN SER/PLAS 560.0 U/L High 30.0-223.0 [facility] Comment on above: Performed By: #### L [id number] ####[facility] ([facility])[address] [place] [address] CONSULTon 06-28-2023 CONSULT Normal [facility] MAGNESIUMon 06-28-2023 Magnesium [Mass/Vol] 1.9 mg/dL Normal 1.9-2.7 [facility] Comment on above: Performed By: #### L [id number] ####[facility] ([facility])[address] [place] [address] PLATELET COUNTon 06-28-2023 IMMATURE PLATELET FRACTION % 6.1 % Normal 0.8-6.3 [facility] Comment on above: Performed By: #### L [id number] ####[facility] ([facility])[address] [place] [address] PLATELETS (10*3/UL) IN BLOOD AUTOMATED COUNT 126 10*3/uL Low 150-400 [facility] Comment on above: Performed By: #### L [id number] ####[facility] ([facility])[address] [place] [address] POCT GLUCOSE METER UNSOLICIT ED RESULTSon 06-28-2023 Glucose [Mass/Vol] 95 mg/dL Normal 70-105 [facility] Comment on above: Order Comment: Waive d Testing in the ED is performed under the ED CLIA certificate #[id number]. Result Comment: [email or web address] Performed By: #### L [id number] ####[facility] ([facility])[address] [place] [address] Glucose [Mass/Vol] 118 mg/dL High 70-105 [facility] Comment on above: Order Comment: Waive d Testing in the ED is performed under the ED CLIA certificate #[id number]. Result Comment: [email or web address] gabo Performed By: #### L [id number] ####[facility] ([facility])[address] [place] [address] Glucose [Mass/Vol] 111 mg/dL High 70-105 [facility] Comment on above: Order Comment: Waive d Testing in the ED is performed under the ED CLIA certificate #[id number]. Result Comment: cgil lso Performed By: #### L [id number] ####[facility] ([facility])[address] [place] [address] Glucose [Mass/Vol] 160 mg/dL High 70-105 [facility] Comment on above: Order Comment: Waive d Testing in the ED is performed under the ED CLIA certificate #[id number]. Result Comment: [email or web address] Performed By: #### L [id number] ####[facility] ([facility])[address] [place] [address] PROTIME-INRon 06-28-2023 INR IN PPP BY COAGULATION ASSAY 1.16 High 0.90-1.10 [facility] Comment on above: Result Comment: [...] CHEST 1995;108:231S-246S. Performed By: #### L [id number] ####[facility] ([facility])[address] [place] [address] PROTHROMBIN TIME (PT) IN PPP BY COAGULATION ASSAY 14.8 Seconds Normal 12.3-14.8 [facility] Comment on above: Performed By: #### L [id number] ####[facility] ([facility])[address] [place] [address] 30on 06-27-2023 30 Normal [facility] 30 Normal [facility] APTTon 06-27-2023 ACTIVATED PARTIAL THROMBOPLASTIN TIME IN PPP BY COAGULATION ASSAY 35.5 Seconds High 25.0-35.0 [facility] Comment on above: Result Comment: Clin ical significance of the APTT is questionable in the presence of heparin. Performed By: #### L [id number] ####[facility] ([facility])[address] [facility] [address] BASIC METABOLIC PANELon 05-31 Anion gap [Moles/Vol] 9 mmol/L Normal 7-20 [facility] Comment on above: Performed By: #### L [id number] ####[facility] ([facility])[address] [place] [address] Calcium [Mass/Vol] 8.3 mg/dL Low 8.6-10.3 [facility] Comment on above: Performed By: #### L [id number] ####[facility] ([facility])[address] [place] [address] Chloride [Moles/Vol] 104 mmol/L Normal 98-107 [facility] Comment on above: Performed By: #### L [id number] ####[facility] ([facility])[address] [place] [address] CO2 [Moles/Vol] 26 mmol/L Normal 21-31 [facility] Comment on above: Performed By: #### L [id number] ####[facility] ([facility] [place] [address] Creatinine [Mass/Vol] 0.78 mg/dL Normal 0.70-1.30 [facility] Comment on above: Performed By: #### L [id number] ####[facility] ([facility])[address] [place] [address] GLOMERULAR FILTRATION RATE ML/MIN/1.73 SQ M.PREDICTED 108.6 mL/min/1.73m*2 Normal >60.0 [facility] Comment on above: Result Comment: The [facility]???s estimated glomerular filtration rate (eGFR) [...] of individuals. Performed By: #### L [id number] ####[facility] ([facility])[address] [place] [address] Glucose [Mass/Vol] 117 mg/dL High 70-100 [facility] Comment on above: Performed By: #### L [id number] ####[facility] ([facility])[address] [place] [address] Potassium [Moles/Vol] 4.9 mmol/L Normal 3.5-5.1 [facility] Comment on above: Performed By: #### L [id number] ####[facility] ([facility])[address] [place] [address] Sodium [Moles/Vol] 134 mmol/L Low 136-145 [facility] Comment on above: Performed By: #### L [id number] ####[facility] ([facility])[address] [place] [address] Urea nitrogen [Mass/Vol] 10 mg/dL Normal 7-25 [facility] Comment on above: Performed By: #### L [id number] ####[facility] ([facility])[address] [place] [address] UREA NITROGEN/CREATININE (MASS RATIO) IN SER/PLAS 12.8 Normal [facility] Comment on above: Performed By: #### L [id number] ####[facility] ([facility])[address] [place] [address] CBCon 06-27-2023 Erythrocyte distribution width (RBC) [Ratio] 15.9 % High 11.5-15.0 [facility] Comment on above: Performed By: #### L [id number] ####[facility] ([facility])[address] [place] [address] ERYTHROCYTE MEAN CORPUSCULAR HEMOGLOBIN CONCENTRATION (G/DL) BY AUTOMATED 34.4 g/dL Normal 32.0-35.0 [facility] Comment on above: Performed By: #### L [id number] ####[facility] ([facility])[address] [place] [address] Hematocrit (Bld) [Volume fraction] 21.8 % Low 39.0-55.0 [facility] Comment on above: Performed By: #### L [id number] ####[facility] ([facility])[address] [place] [address] Hemoglobin (Bld) [Mass/Vol] 7.5 g/dL Low 13.0-17.0 [facility] Comment on above: Performed By: #### L [id number] ####[facility] ([facility])[address] [place] [address] IMMATURE PLATELET FRACTION % 4.8 % Normal 0.8-6.3 [facility] Comment on above: Performed By: #### L [id number] ####[facility] ([facility])[address] [place] [address] MCH (RBC) [Entitic mass] 30.2 pg Normal 27.0-33.0 [facility] Comment on above: Performed By: #### L [id number] ####[facility] [place] [address] MCV (RBC) [Entitic vol] 87.9 fL Normal 82.0-98.0 [facility] Comment on above: Performed By: #### L [id number] ####[facility] ([facility] [place], [place] [address] PLATELETS (10*3/UL) IN BLOOD AUTOMATED COUNT 116 10*3/uL Low 150-400 [facility] Comment on above: Performed By: #### L [id number] ####[facility] ([facility])[address] [place] [address] RBC (Bld) [#/Vol] 2.48 10*6/uL Low 4.20-5.70 [facility] Comment on above: Performed By: #### L [id number] ####[facility] ([facility])[address] [place] [address] WBC (Bld) [#/Vol] 5.34 10*3/uL Normal 4.00-10.60 [facility] Comment on above: Performed By: #### L [id number] ####[facility] [place] [address] CONSULTon 06-27-2023 CONSULT Normal [facility] MAGNESIUMon 06-27-2023 Magnesium [Mass/Vol] 2.0 mg/dL Normal 1.9-2.7 [facility] Comment on above: Performed By: #### L [id number] ####[facility] ([facility])[address] [place] [address] PHOSPHORUSon 06-27-2023 Magnesium [Mass/Vol] 4.2 mg/dL Normal 2.5-5.0 [facility] Comment on above: Performed By: #### L [id number] ####[facility] ([facility])[address] [place] [address] POCT GLUCOSE METER UNSOLICIT ED RESULTSon 06-27-2023 Glucose [Mass/Vol] 154 mg/dL High 70-105 [facility] Comment on above: Order Comment: Waive d Testing in the ED is performed under the ED CLIA certificate #[id number]. Result Comment: mer jha Performed By: #### L [id number] ####[facility] ([facility])[address] [place] [address] Glucose [Mass/Vol] 114 mg/dL High 70-105 [facility] Comment on above: Order Comment: Waive d Testing in the ED is performed under the ED CLIA certificate #[id number]. Result Comment: mer jha Performed By: #### L [id number] ####[facility] ([facility])[address] [place] [address] Glucose [Mass/Vol] 108 mg/dL High 70-105 [facility] Comment on above: Order Comment: Waive d Testing in the ED is performed under the ED CLIA certificate #[id number]. Result Comment: mer jha Performed By: #### L [id number] ####[facility] ([facility])[address] [place] [address] Glucose [Mass/Vol] 112 mg/dL High 70-105 [facility] Comment on above: Order Comment: Waive d Testing in the ED is performed under the ED CLIA certificate #[id number]. Result Comment: mmcc gabo Performed By: #### L [id number] ####[facility] ([employer])[address] [place] [address] Glucose [Mass/Vol] 111 mg/dL High 70-105 [facility] Comment on above: Order Comment: Waive d Testing in the ED is performed under the ED CLIA certificate #[id number]. Result Comment: mmcc gabo Performed By: #### L [id number] ####[facility] ([facility])[address] [facility] [place] [address] Glucose [Mass/Vol] 120 mg/dL High 70-105 [facility] Comment on above: Order Comment: Waive d Testing in the ED is performed under the ED CLIA certificate #[id number]. Result Comment: mmcc gabo Performed By: #### L [id number] ####[facility] ([facility])[address] [facility] [place] [address] Glucose [Mass/Vol] 128 mg/dL High 70-105 [facility] Comment on above: Order Comment: Waive d Testing in the ED is performed under the ED CLIA certificate #[id number]. Result Comment: mmcc gabo Performed By: #### L [id number] ####[facility] ([facility])[address] [place] [address] PROTIME-INRon 06-27-2023 INR IN PPP BY COAGULATION ASSAY 1.30 High 0.90-1.10 [facility] Center Comment on [...] CHEST 1995;108:[id number]. Performed By: #### L [id number] ####[facility] ([employer])[address] [place] [address] PROTHROMBIN TIME (PT) IN PPP BY COAGULATION ASSAY 16.3 Seconds High 12.3-14.8 [facility] Comment on above: Order Comment: On ar rival to SICU Performed By: #### L [id number] ####[facility] ([employer])[address] [place] [address] 30on 06-26-2023 30 Normal [facility] 30 Normal [facility] 30 Normal [facility] ANESon 06-26-2023 ANES Normal [facility] APTTon 06-26-2023 ACTIVATED PARTIAL THROMBOPLASTIN TIME IN PPP BY COAGULATION ASSAY 30.1 Seconds Normal 25.0-35.0 [facility] Comment on above: Result Comment: Clin ical significance of the APTT is questionable in the presence of heparin. Performed By: #### L [id number] ####[facility] [employer])[address] [place] [address] ACTIVATED PARTIAL THROMBOPLASTIN TIME IN PPP BY COAGULATION ASSAY 29.1 Seconds Normal 25.0-35.0 [facility] Comment on above: Order Comment: Pre-o p diagnosis:Aortic valve disorder [I35.9] Result Comment: Clin ical significance of the APTT is questionable in the presence of heparin. Performed By: #### L [id number] ####[facility] [employer])[address] [place] [address] ACTIVATED PARTIAL THROMBOPLASTIN TIME IN PPP BY COAGULATION ASSAY 31.8 Seconds Normal 25.0-35.0 [facility] Comment on above: Result Comment: Clin ical significance of the APTT is questionable in the presence of heparin. Performed By: #### L [id number] ####[facility] (BEAKER)[address] [place] [address] ARTERIAL BLOOD GAS WITH IONI ZED CALCIUMon 06-26-2023 Base excess Calc (Bld) [Moles/Vol] -3.3000 mmol/L Low -2.0-3.0 [facility] Comment on above: Performed By: #### L [id number] ####[facility] [id number] [place] [address] [place] CALCIUM IONIZED (MMOL/L) IN BLOOD 1.09 mmol/L Low 1.15-1.33 [facility] Comment on above: Performed By: #### L [id number] ####[facility] [id number] [place] [address] [place] CO2 (Bld) [Partial pressure] 35 mm[Hg] Normal 35-48 [facility] Comment on above: Performed By: #### L [id number] ####[facility] [id number] [place] [address] [place] FIO2 40 % Normal [facility] Comment on above: Performed By: #### L [id number] ####[facility] [id number] [place] [address] [place] HCO3 (Bld) [Moles/Vol] 21.2 mmol/L Normal 21.0-28.0 [facility] Comment on above: Performed By: #### L [id number] ####[facility] [id number] [place] [address] [place] Oxygen (Bld) [Partial pressure] 118 mm[Hg] High 83-100 [facility] Comment on above: Performed By: #### L [id number] ####[facility] [id number] [place] [address] [place] OXYGEN SATURATION (%) IN ARTERIAL BLOOD 98.8 % High 94.0-98.0 [facility] Comment on above: Performed By: #### L [id number] ####[facility] RESPIR[facility] [id number] [place] [facility] [address] [place] PEEP 6 cmH2O Normal [facility] Comment on above: Performed By: #### L [id number] ####[facility] [id number] [place] [address] [facility] pH (Bld) 7.39 [pH] Normal 7.35-7.45 [facility] Comment on above: Performed By: #### L [id number] ####[facility] [id number] [place] [address] [facility] PRESSURE SUPPORT 12 Normal [facility] Comment on above: Performed By: #### L [id number] ####[facility]IR[facility] [id number] [place] [address] [facility] SOURCE OF OXYGEN Bi-PAP Normal [facility] Comment on above: Performed By: #### L [id number] ####[facility] [id number] [place] [address] [facility] Base excess Calc (Bld) [Moles/Vol] -5.8000 mmol/L Low -2.0-3.0 [facility] Comment on above: Performed By: #### L [id number] ####[facility] [id number] [place] [address] [facility] CALCIUM IONIZED (MMOL/L) IN BLOOD 1.19 mmol/L Normal 1.15-1.33 [facility] Comment on above: Performed By: #### L [id number] ####[facility]PIR[facility] [id number] [place] [address] [place] CO2 (Bld) [Partial pressure] 44 mm[Hg] Normal 35-48 [facility] Comment on above: Performed By: #### L [id number] ####[facility] RESPIRAT[facility] [id number] [place] [facility] [address] [place] FIO2 40 % Normal [facility] Comment on above: Performed By: #### L [id number] ####[facility] RESPIRAT[facility] [id number] [place] [address] [facility] HCO3 (Bld) [Moles/Vol] 20.7 mmol/L Low 21.0-28.0 [facility] Comment on above: Performed By: #### L [id number] ####[facility]IR[facility] [id number] [place] [address] [facility] Oxygen (Bld) [Partial pressure] 102 mm[Hg] High 83-100 [facility] Comment on above: Performed By: #### L [id number] ####[facility] RESPIRAT[facility] [id number] [place] [address] [facility] OXYGEN SATURATION (%) IN ARTERIAL BLOOD 99.5 % High 94.0-98.0 [facility] Comment on above: Performed By: #### L [id number] ####[facility] RESPIRAT[facility] [id number] [place] [address] [facility] PEEP 6 cmH2O Normal [facility] Comment on above: Performed By: #### L [id number] ####[facility] RESPIRAT[facility] [id number] [place] [address] [facility] pH (Bld) 7.28 [pH] Low 7.35-7.45 [facility] Comment on above: Performed By: #### L [id number] ####[facility] RES[facility]IR[facility] [id number] [place] [address] [facility] PRESSURE SUPPORT 12 Normal [facility] Comment on above: Performed By: #### L [id number] ####[facility] RESPIRAT[facility] [id number] [place] [address] [facility] SOURCE OF OXYGEN Bi-PAP Normal [facility] Comment on above: Performed By: #### L [id number] ####[facility]IR[facility] [id number] [place] [address] [facility] BASIC METABOLIC PANELon -2 Anion gap [Moles/Vol] 10 mmol/L Normal 10-18 [facility] Comment on above: Performed By: #### L [id number] ####[facility] (BEAKER)[address] [place] [address] Calcium [Mass/Vol] 8.1 mg/dL Low 8.6-10.3 [facility] Comment on above: Performed By: #### L [id number] ####[facility] ([facility])[address] [facility] [facility] [place] [address] Chloride [Moles/Vol] 108 mmol/L High 98-107 [facility] Comment on above: Performed By: #### L [id number] ####[facility] ([facility])[address] [place] [address] CO2 [Moles/Vol] 24 mmol/L Normal 21-31 [facility] Comment on above: Performed By: #### L [id number] ####[facility] ([facility])[address] [place] [address] Creatinine [Mass/Vol] 0.72 mg/dL Normal 0.70-1.30 [facility] Comment on above: Performed By: #### L [id number] ####[facility] ([facility])[address] [place] [address] GLOMERULAR FILTRATION RATE ML/MIN/1.73 SQ M.PREDICTED 111.3 mL/min/1.73m*2 Normal >60.0 [facility] Comment on above: Result Comment: The [facility]???s estimated glomerular filtration rate (eGFR) [...] of individuals. Performed By: #### L [id number] ####[facility] ([facility])[address] [place] [address] Glucose [Mass/Vol] 151 mg/dL High 70-100 [facility] Comment on above: Performed By: #### L [id number] ####[facility] ([facility] [place] [address] Potassium [Moles/Vol] 4.1 mmol/L Normal 3.5-5.1 [facility] Comment on above: Performed By: #### L [id number] ####[facility] ([facility] [place] [address] Sodium [Moles/Vol] 138 mmol/L Normal 136-145 [facility] Comment on above: Performed By: #### L [id number] ####[facility] ([facility] [place] [address] Urea nitrogen [Mass/Vol] 11 mg/dL Normal 7-25 [facility] Comment on above: Performed By: #### L [id number] ####[facility] ([facility])[address] [place] [address] UREA NITROGEN/CREATININE (MASS RATIO) IN SER/PLAS 15.3 Normal [facility] Comment on above: Performed By: #### L [id number] ####[facility] ([facility])[address] [place] [address] Anion gap [Moles/Vol] 14 mmol/L Normal 7-20 [facility] Comment on above: Order Comment: Pre-o p diagnosis:Aortic valve disorder [I35.9] Performed By: #### L [id number] ####[facility] ([facility])[address] [place] [address] Calcium [Mass/Vol] 7.9 mg/dL Low 8.6-10.3 [facility] Comment on above: Order Comment: Pre-o p diagnosis:Aortic valve disorder [I35.9] Performed By: #### L [id number] ####[facility] ([facility] [place] [address] Chloride [Moles/Vol] 107 mmol/L Normal 98-107 [facility] Comment on above: Order Comment: Pre-o p diagnosis:Aortic valve disorder [I35.9] Performed By: #### L [id number] ####[facility] ([facility] [place] [address] CO2 [Moles/Vol] 21 mmol/L Normal 21-31 [facility] Comment on above: Order Comment: Pre-o p diagnosis:Aortic valve disorder [I35.9] Performed By: #### L [id number] ####[facility] ([facility] [place] [address] Creatinine [Mass/Vol] 0.76 mg/dL Normal 0.70-1.30 [facility] Comment on above: Order Comment: Pre-o p diagnosis:Aortic valve disorder [I35.9] Performed By: #### L [id number] ####[facility] ([facility])[address] [place] [address] GLOMERULAR FILTRATION RATE ML/MIN/1.73 SQ M.PREDICTED 109.5 mL/min/1.73m*2 Normal >60.0 [facility] Comment on above: Order Comment: Pre-o p diagnosis:Aortic valve disorder [I35.9] Result Comment: The [facility]???s estimated glomerular filtration rate (eGFR) [...] of individuals. Performed By: #### L [id number] ####[facility] ([facility])[address] [place] [address] Glucose [Mass/Vol] 194 mg/dL High 70-100 [facility] Comment on above: Order Comment: Pre-o p diagnosis:Aortic valve disorder [I35.9] Performed By: #### L [id number] ####[facility] ([facility])[address] [facility] [address] Potassium [Moles/Vol] 3.9 mmol/L Normal 3.5-5.1 [facility] Comment on above: Order Comment: Pre-o p diagnosis:Aortic valve disorder [I35.9] Performed By: #### L [id number] ####[facility] ([facility])[address] [place] [address] Sodium [Moles/Vol] 138 mmol/L Normal 136-145 [facility] Comment on above: Order Comment: Pre-o p diagnosis:Aortic valve disorder [I35.9] Performed By: #### L [id number] ####[facility] ([facility])[address] [place] [address] Urea nitrogen [Mass/Vol] 11 mg/dL Normal 7-25 [facility] Comment on above: Order Comment: Pre-o p diagnosis:Aortic valve disorder [I35.9] Performed By: #### L [id number] ####[facility] ([facility])[address] [place] [address] UREA NITROGEN/CREATININE (MASS RATIO) IN SER/PLAS 14.5 Normal [facility] Comment on above: Order Comment: Pre-o p diagnosis:Aortic valve disorder [I35.9] Performed By: #### L [id number] ####[facility] ([facility])[address] [place] [address] CBCon 06-26-2023 Erythrocyte distribution width (RBC) [Ratio] 15.5 % High 11.5-15.0 [facility] Comment on above: Performed By: #### L [id number] ####[facility] ([facility])[address] [place] [address] ERYTHROCYTE MEAN CORPUSCULAR HEMOGLOBIN CONCENTRATION (G/DL) BY AUTOMATED 34.0 g/dL Normal 32.0-35.0 [facility] Comment on above: Performed By: #### L [id number] ####[facility] ([facility])[address] [place] [address] Hematocrit (Bld) [Volume fraction] 29.4 % Low 39.0-55.0 [facility] Comment on above: Performed By: #### L [id number] ####[facility] ([facility] [place] [address] Hemoglobin (Bld) [Mass/Vol] 10.0 g/dL Low 13.0-17.0 [facility] Comment on above: Performed By: #### L [id number] ####[facility] (BEAKER)[address] [place] [address] IMMATURE PLATELET FRACTION % 3.8 % Normal 0.8-6.3 [facility] Comment on above: Performed By: #### L [id number] ####[facility] ([facility] [place] [address] MCH (RBC) [Entitic mass] 29.6 pg Normal 27.0-33.0 [facility] Comment on above: Performed By: #### L [id number] ####[facility] ([facility] [place] [address] MCV (RBC) [Entitic vol] 87.0 fL Normal 82.0-98.0 [facility] Comment on above: Performed By: #### L [id number] ####[facility] ([facility] [place] [address] PLATELETS (10*3/UL) IN BLOOD AUTOMATED COUNT 108 10*3/uL Low 150-400 [facility] Comment on above: Performed By: #### L [id number] ####[facility] ([facility] [place] [address] RBC (Bld) [#/Vol] 3.38 10*6/uL Low 4.20-5.70 [facility] Comment on above: Performed By: #### L [id number] ####[facility] (BEAKER)[address] [place] [address] WBC (Bld) [#/Vol] 6.87 10*3/uL Normal 4.00-10.60 [facility] Comment on above: Performed By: #### L [id number] ####[facility] ([facility] [place] [address] Erythrocyte distribution width (RBC) [Ratio] 15.3 % High 11.5-15.0 [facility] Comment on above: Order Comment: Pre-o p diagnosis:Aortic valve disorder [I35.9] Performed By: #### L [id number] ####[facility] ([facility])[address] [place] [address] ERYTHROCYTE MEAN CORPUSCULAR HEMOGLOBIN CONCENTRATION (G/DL) BY AUTOMATED 34.5 g/dL Normal 32.0-35.0 [facility] Comment on above: Order Comment: Pre-o p diagnosis:Aortic valve disorder [I35.9] Performed By: #### L [id number] ####[facility] ([facility])[address] [place] [address] Hematocrit (Bld) [Volume fraction] 29.3 % Low 39.0-55.0 [facility] Comment on above: Order Comment: Pre-o p diagnosis:Aortic valve disorder [I35.9] Performed By: #### L [id number] ####[facility] ([facility])[address] [place] [address] Hemoglobin (Bld) [Mass/Vol] 10.1 g/dL Low 13.0-17.0 [facility] Comment on above: Order Comment: Pre-o p diagnosis:Aortic valve disorder [I35.9] Performed By: #### L [id number] ####[facility] ([facility])[address] [facility] [place] [address] IMMATURE PLATELET FRACTION % 4.1 % Normal 0.8-6.3 [facility] Comment on above: Order Comment: Pre-o p diagnosis:Aortic valve disorder [I35.9] Performed By: #### L [id number] ####[facility] ([facility])[address] [facility] [address] MCH (RBC) [Entitic mass] 29.9 pg Normal 27.0-33.0 [facility] Comment on above: Order Comment: Pre-o p diagnosis:Aortic valve disorder [I35.9] Performed By: #### L [id number] ####[facility] ([facility])[address] [place] [address] MCV (RBC) [Entitic vol] 86.7 fL Normal 82.0-98.0 [facility] Comment on above: Order Comment: Pre-o p diagnosis:Aortic valve disorder [I35.9] Performed By: #### L [id number] ####[facility] ([facility])[address] [place] [address] PLATELETS (10*3/UL) IN BLOOD AUTOMATED COUNT 135 10*3/uL Low 150-400 [facility] Comment on above: Order Comment: Pre-o p diagnosis:Aortic valve disorder [I35.9] Performed By: #### L [id number] ####[facility] ([facility])[address] [place] [address] RBC (Bld) [#/Vol] 3.38 10*6/uL Low 4.20-5.70 [facility] Comment on above: Order Comment: Pre-o p diagnosis:Aortic valve disorder [I35.9] Performed By: #### L [id number] ####[facility] ([facility])[address] [place] [address] WBC (Bld) [#/Vol] 9.24 10*3/uL Normal 4.00-10.60 [facility] Comment on above: Order Comment: Pre-o p diagnosis:Aortic valve disorder [I35.9] Performed By: #### L [id number] ####[facility] ([facility])[address] [place] [address] CBC WITH AUTO DIFFERENTIALon 06-26-2023 Basophils (Bld) [#/Vol] 0.04 10*3/uL Normal 0.00-0.20 [facility] Comment on above: Performed By: #### L [id number] ####[facility] ([facility])[address] [place] [address] Basophils/100 WBC (Bld) 0.8 % Normal 0.0-1.0 [facility] Comment on above: Performed By: #### L [id number] ####[facility] (BEAKER)[address] [place] [address] Eosinophils (Bld) [#/Vol] 0.28 10*3/uL Normal 0.00-0.50 [facility] Comment on above: Performed By: #### L [id number] ####[facility] (BEAKER)[address] [place] [address] Eosinophils/100 WBC (Bld) 5.9 % Normal 0.0-6.0 [facility] Comment on above: Performed By: #### L [id number] ####[facility] ([facility])[address] [place] [address] Erythrocyte distribution width (RBC) [Ratio] 15.9 % High 11.5-15.0 [facility] Comment on above: Performed By: #### L [id number] ####[facility] ([facility])[address] [place] [address] ERYTHROCYTE MEAN CORPUSCULAR HEMOGLOBIN CONCENTRATION (G/DL) BY AUTOMATED 33.7 g/dL Normal 32.0-35.0 [facility] Comment on above: Performed By: #### L [id number] ####[facility] ([facility])[address] [place] [address] Hematocrit (Bld) [Volume fraction] 32.6 % Low 39.0-55.0 [facility] Comment on above: Performed By: #### L [id number] ####[facility] (BEAKER)[address] [place] [address] Hemoglobin (Bld) [Mass/Vol] 11.0 g/dL Low 13.0-17.0 [facility] Comment on above: Performed By: #### L [id number] ####[facility] (BEAKER)[address] [place] [address] Immature granulocytes (Bld) [#/Vol] 0.01 10*3/uL Normal 0.00-0.20 [facility] Comment on above: Performed By: #### L [id number] ####[facility] (BEAKER)[address] [place] [address] Immature granulocytes/100 WBC (Bld) 0.2 % Normal 0.0-1.0 [facility] Comment on above: Performed By: #### L [id number] ####[facility] (BEAKER)[address] [place] [address] Lymphocytes (Bld) [#/Vol] 0.86 10*3/uL Low 1.20-4.00 [facility] Comment on above: Performed By: #### L [id number] ####[facility] (BEAKER)[address] [place] [address] Lymphocytes/100 WBC (Bld) 18.3 % Low 20.0-45.0 [facility] Comment on above: Performed By: #### L [id number] ####[facility] (BEAKER)[address] [place] [address] MCH (RBC) [Entitic mass] 29.4 pg Normal 27.0-33.0 [facility] Comment on above: Performed By: #### L [id number] ####[facility] (BEAKER)[address] [place] [address] MCV (RBC) [Entitic vol] 87.2 fL Normal 82.0-98.0 [facility] Comment on above: Performed By: #### L [id number] ####[facility] (BEAKER)[address] [place] [address] Monocytes (Bld) [#/Vol] 0.50 10*3/uL Normal 0.10-1.00 [facility] Comment on above: Performed By: #### L [id number] ####[facility] ([facility])[address] [place] [address] Monocytes/100 WBC (Bld) 10.6 % Normal 5.0-12.0 [facility] Comment on above: Performed By: #### L [id number] ####[facility] ([facility])[address] [place] [address] Neutrophils (Bld) [#/Vol] 3.02 10*3/uL Normal 1.60-7.60 [facility] Comment on above: Performed By: #### L [id number] ####[facility] ([facility])[address] [place] [address] Neutrophils/100 WBC (Bld) 64.2 % Normal 40.0-72.0 [facility] Comment on above: Performed By: #### L [id number] ####[facility] ([facility])[address] [place] [address] NRBC (PER 100 WBCS) BY AUTOMATED COUNT 0.0 % Normal 0 [facility] Comment on above: Performed By: #### L [id number] ####[facility] ([facility])[address] [place] [address] PLATELETS (10*3/UL) IN BLOOD AUTOMATED COUNT 159 10*3/uL Normal 150-400 [facility] Comment on above: Performed By: #### L [id number] ####[facility] ([facility])[address] [place] [address] RBC (Bld) [#/Vol] 3.74 10*6/uL Low 4.20-5.70 [facility] Comment on above: Performed By: #### L [id number] ####[facility] ([facility])[address] [place] [address] WBC (Bld) [#/Vol] 4.71 10*3/uL Normal 4.00-10.60 [facility] Comment on above: Performed By: #### L [id number] ####[facility] ([facility])[address] [place] [address] CO-OXIMETRYon 06-26-2023 CARBOXYHEMOGLOBIN/HE MOGLOBIN TOTAL % IN BLOOD 2.3 % Normal [facility] Comment on above: Performed By: #### L [id number] ####[facility] RESPIRATORY [id number] [place] [address] [place] Hemoglobin (Bld) [Mass/Vol] 9.5 g/dL Normal [facility] Comment on above: Performed By: #### L [id number] ####[facility] RESPIRATORY [id number] [place] [address] [place] METHEMOGLOBIN/100 IN BLOOD 0.5 % Normal 0.0-1.5 [facility] Comment on above: Performed By: #### L [id number] ####[facility] RESPIRATORY [id number] [place] [address] [place] Oxygen saturation in Blood 61.9 % Normal [facility] Comment on above: Performed By: #### L [id number] ####[facility] RESPIRATORY [id number] [place] [address] [place] OXYGENATED HEMOGLOBIN IN BLOOD 60.2 % Normal [facility] Comment on above: Performed By: #### L [id number] ####[facility] RESPIRATORY [id number] [place] [address] [place] COMPREHENSIVE METABOLIC PANE Braulio 06-26-2023 Albumin [Mass/Vol] 4.1 g/dL Normal 3.5-5.7 [facility] Comment on above: Performed By: #### L [id number] ####[facility] LAB (BEAKER)[address] [place] [address] ALP [Catalytic activity/Vol] 51 U/L Normal 34-104 [facility] Comment on above: Performed By: #### L [id number] ####[facility] (BEAKER)[address] [place] [address] ALT [Catalytic activity/Vol] 13 U/L Normal 7-52 [facility] Comment on above: Performed By: #### L [id number] ####[facility] (BEAKER)[address] [place] [address] Anion gap [Moles/Vol] 10 mmol/L Normal 7-20 [facility] Comment on above: Performed By: #### L [id number] ####[facility] (BEAKER)[address] [place] [address] AST [Catalytic activity/Vol] 12 U/L Low 13-39 [facility] Comment on above: Performed By: #### L [id number] ####[facility] (BEAKER)[address] [place] [address] Bilirubin [Mass/Vol] 0.9 mg/dL Normal 0.3-1.0 [facility] Comment on above: Performed By: #### L [id number] ####[facility] (BEAKER)[address] [place] [address] Calcium [Mass/Vol] 8.6 mg/dL Normal 8.6-10.3 [facility] Comment on above: Performed By: #### L [id number] ####[facility] (BEAKER)[address] [place] [address] Chloride [Moles/Vol] 104 mmol/L Normal 98-107 [facility] Comment on above: Performed By: #### L [id number] ####[facility] (BEAKER)[address] [place] [address] CO2 [Moles/Vol] 26 mmol/L Normal 21-31 [facility] Comment on above: Performed By: #### L [id number] ####[facility] (BEAKER)[address] [place] [address] Creatinine [Mass/Vol] 0.82 mg/dL Normal 0.70-1.30 [facility] Comment on above: Performed By: #### L [id number] ####[facility] (BEAKER)[address] [place] [address] GLOMERULAR FILTRATION RATE ML/MIN/1.73 SQ M.PREDICTED 107.0 mL/min/1.73m*2 Normal >60.0 [facility] Comment on above: Result Comment: The [facility]???s estimated glomerular filtration rate (eGFR) [...] of individuals. Performed By: #### L [id number] ####[facility] ([facility])[address] [place] [address] Glucose [Mass/Vol] 97 mg/dL Normal 70-100 [facility] Comment on above: Performed By: #### L [id number] ####[facility] ([facility])[address] [place] [address] Potassium [Moles/Vol] 4.0 mmol/L Normal 3.5-5.1 [facility] Comment on above: Performed By: #### L [id number] ####[facility] ([facility])[address] [place] [address] Protein [Mass/Vol] 6.0 g/dL Normal 6.0-8.3 [facility] Comment on above: Performed By: #### L [id number] ####[facility] ([facility])[address] [place] [address] Sodium [Moles/Vol] 136 mmol/L Normal 136-145 [facility] Comment on above: Performed By: #### L [id number] ####[facility] ([facility])[address] [place] [address] Urea nitrogen [Mass/Vol] 12 mg/dL Normal 7-25 [facility] Comment on above: Performed By: #### L [id number] ####[facility] ([facility])[address] [place] [address] UREA NITROGEN/CREATININE (MASS RATIO) IN SER/PLAS 14.6 Normal [facility] Comment on above: Performed By: #### L [id number] ####[facility] ([facility])[address] [place] [address] CONSULTon 06-26-2023 CONSULT Normal [facility] DEVICE CULTUREon 06-26-2023 Bacteria identified Cx Nom (Unsp spec) No growth at 3 days Normal [facility] Comment on above: Order Comment: RIGHT ARM PICC LINE CULTURE Performed By: #### D EVICE CULTURE ####[facility] [place] [address] FIBRINOGENon 06-26-2023 Magnesium [Mass/Vol] 402 mg/dL Normal 150-425 [facility] Comment on above: Order Comment: Pre-o p diagnosis:Aortic valve disorder [I35.9] Performed By: #### L [id number] ####[facility] ([facility])[address] [place] [address] HISTOLOGY - TISSUE EXAMon LAB AP CASE REPORT Normal [facility] Comment on above: Order Comment: Pre-o p diagnosis:Aortic valve disorder [I35.9] Result Comment: Surg ical Pathology Case: [id number] Provider: Paul George MD Collected: 06/26/2023 1153Ordering Location: [facility] Main Operating Room Received: 06/26/2023 1354Pathologist: LILIA Prakashpecimen: Other, AORTIC VALVE LEAFLET FOR HISTOLOGY Performed By: #### L [id number] ####[facility] ([facility])[address] [place] [address] LAB AP CLINICAL INFORMATION Normal [facility] Comment on above: Order Comment: Pre-o p diagnosis:Aortic valve disorder [I35.9] Result Comment: Post -Op [id number] - Aortic valve disorder [ICD-10-CM] Performed By: #### L [id number] ####[facility] ([facility])[address] [place] [address] LAB AP GROSS DESCRIPTION A. Other. Normal [facility] Comment on [...] identified. The specimen is serially sectioned and door to door sales representative sections are submitted in 1 cassette.Nai Sheth, Pathologists' Director Child Jaspreet Chawla Pathologists' Director Child Performed By: #### L [id number] ####[facility] ([facility])[address] [place] [address] LAB AP MICROSCOPIC DESCRIPTION Microscopic examination performed. [facility] Comment on above: Order Comment: Pre-o p diagnosis:Aortic valve disorder [I35.9] Performed By: #### L [id number] ####[facility] ([facility])[address] [place] [address] LAB AP REPORT FINAL DIAGNOSIS NARRATIVE [facility] Comment on above: Order Comment: Pre-o p diagnosis:Aortic valve disorder [I35.9] Result Comment: A. A ortic valve leaflet, removal:- Valvular tissue with fibrinoid necrosis and acute inflammation. Performed By: #### L [id number] ####[facility] ([facility])[address] [place] [address] LACTIC ACID WITH 4 HOUR REFL EXon 06-26-2023 LACTATE (MMOL/L) IN SER/PLAS 1.5 mmol/L Normal 0.5-2.2 [facility] Comment on above: Order Comment: Pre-o p diagnosis:Aortic valve disorder [I35.9] Performed By: #### L [id number] ####[facility] ([facility])[address] [place] [address] LACTATE (MMOL/L) IN SER/PLAS 3.1 mmol/L Critically high 0.5-2.2 [facility] Comment on above: Order Comment: Pre-o p diagnosis:Aortic valve disorder [I35.9] Performed By: #### L [id number] ####[facility] ([facility])[address] [place] [address] LACTIC ACID, PLASMAon 2023 LACTATE (MMOL/L) IN SER/PLAS 2.4 mmol/L High 0.5-2.2 [facility] Comment on above: Performed By: #### L [id number] ####[facility] ([facility])[address] [address] MAGNESIUMon 06-26-2023 Magnesium [Mass/Vol] 2.4 mg/dL Normal 1.9-2.7 [facility] Comment on above: Performed By: #### L [id number] ####[facility] ([facility])[address] [address] Magnesium [Mass/Vol] 2.6 mg/dL Normal 1.9-2.7 [facility] Comment on above: Order Comment: Pre-o p diagnosis:Aortic valve disorder [I35.9] Performed By: #### L [id number] ####[facility] ([facility])[address] [place] [address] Magnesium [Mass/Vol] 2.0 mg/dL Normal 1.9-2.7 [facility] Comment on above: Performed By: #### L [id number] ####[facility] ([facility])[address] [address] OPNOTEon 06-26-2023 OPNOTE Normal [facility] PHOSPHORUSon 06-26-2023 Magnesium [Mass/Vol] 3.9 mg/dL Normal 2.5-5.0 [facility] Comment on above: Performed By: #### L [id number] ####[facility] ([facility])[address] [address] Magnesium [Mass/Vol] 4.2 mg/dL Normal 2.5-5.0 [facility] Comment on above: Performed By: #### L [id number] ####[facility] ([facility])[address] [place] [address] POCT ACTIVATED CLOTTING TIME UNSOLICITED RESULTSon 06-26-2023 POC ACTIVATED CLOTTING TIME 143 sec Normal 82-152 [facility] Comment on above: Performed By: #### L [id number] ####[facility] (BEAKER)[address] [place] [address] POC ACTIVATED CLOTTING TIME 148 sec Normal 82-152 [facility] Comment on above: Performed By: #### L [id number] ####[facility] (BEAKER)[address] [place] [address] POC ACTIVATED CLOTTING TIME 473 sec High 82-152 [facility] Comment on above: Performed By: #### L [id number] ####[facility] (BEAKER)[address] [place] [address] POC ACTIVATED CLOTTING TIME 562 sec High 82-152 [facility] Comment on above: Performed By: #### L [id number] ####[facility] (BEAKER)[address] [place] [address] POC ACTIVATED CLOTTING TIME 602 sec High 82-152 [facility] Comment on above: Performed By: #### L [id number] ####[facility] (BEAKER)[address] [place] [address] POC ACTIVATED CLOTTING TIME 679 sec High 82-152 [facility] Comment on above: Performed By: #### L [id number] ####[facility] (BEAKER)[address] [place] [address] POC ACTIVATED CLOTTING TIME 772 sec High 82-152 [facility] Comment on above: Performed By: #### L [id number] ####[facility] (BEAKER)[address] [place] [address] POC ACTIVATED CLOTTING TIME 772 sec High 82-152 [facility] Comment on above: Performed By: #### L [id number] ####[facility] (BEAKER)[address] [place] [address] POC ACTIVATED CLOTTING TIME 701 sec High 82-152 [facility] Comment on above: Performed By: #### L [id number] ####[facility] (BEAKER)[address] [place] [address] POC ACTIVATED CLOTTING TIME 154 sec High 82-152 [facility] Comment on above: Performed By: #### L [id number] ####[facility] ([facility])[address] [facility] [address] POCT GLUCOSE METER UNSOLICIT ED RESULTSon 06-26-2023 Glucose [Mass/Vol] 132 mg/dL High 70-105 [facility] Comment on above: Order Comment: Waive d Testing in the ED is performed under the ED CLIA certificate #[id number]. Result Comment: mmcc gabo Performed By: #### L [id number] ####[facility] ([facility])[address] [facility] [place] [address] Glucose [Mass/Vol] 126 mg/dL High 70-105 [facility] Comment on above: Order Comment: Waive d Testing in the ED is performed under the ED CLIA certificate #[id number]. Result Comment: mmcc gabo Performed By: #### L [id number] ####[facility] ([facility])[address] [facility] [place] [address] Glucose [Mass/Vol] 135 mg/dL High 70-105 [facility] Comment on above: Order Comment: Waive d Testing in the ED is performed under the ED CLIA certificate #[id number]. Result Comment: pcar r Performed By: #### L [id number] ####[facility] ([facility])[address] [facility] [address] Glucose [Mass/Vol] 131 mg/dL High 70-105 [facility] Comment on above: Order Comment: Waive d Testing in the ED is performed under the ED CLIA certificate #[id number]. Result Comment: [email or web address] [email or web address] Performed By: #### L [id number] ####[facility] ([facility])[address] [place] [address] POCT PERFUSION PANEL UNSOLIC ITED RESULTSon 06-26-2023 CO2 [Moles/Vol] 22.0 mmol/L Normal 21.0-29.0 [facility] Comment on above: Performed By: #### L [id number] ####[facility] (BEAKER)[address] [place] [address] Glucose [Mass/Vol] 197 mg/dL High 70-105 [facility] Comment on above: Performed By: #### L [id number] ####[facility] (BEAKER)[address] [place] [address] HCO3 (Bld) [Moles/Vol] 20.8 mmol/L Low 23.0-28.0 [facility] Comment on above: Performed By: #### L [id number] ####[facility] (BEAKER)[address] [place] [address] Hematocrit (Bld) [Volume fraction] 30 % Low 38-51 [facility] Comment on above: Performed By: #### L [id number] ####[facility] (BEAKER)[address] [place] [address] Hemoglobin (Bld) [Mass/Vol] 10.2 g/dL Low 12.0-17.0 [facility] Comment on above: Performed By: #### L [id number] ####[facility] (BEAKER)[address] [place] [address] POCT BASE EXCESS -4.0 mmol/L Low -2.0-3.0 [facility] Comment on above: Performed By: #### L [id number] ####[facility] (BEAKER)[address] [place] [address] POCT IONIZED CALCIUM 1.17 mmol/L Normal 1.12-1.32 [facility] Comment on above: Performed By: #### L [id number] ####[facility] (BEAKER)[address] [place] [address] POCT PCO2 36.5 mmHg Low 41.0-51.0 [facility] Comment on above: Performed By: #### L [id number] ####[facility] (BEAKER)[address] [place] [address] POCT PH 7.36 Normal 7.31-7.41 [facility] Comment on above: Performed By: #### L [id number] ####[facility] (BEAKER)[address] [place] [address] POCT PO2 240 mmHg High 80-105 [facility] Comment on above: Performed By: #### L [id number] ####[facility] (BEAKER)[address] [place] [address] POCT SO2 100 % High 95-98 [facility] Comment on above: Performed By: #### L [id number] ####[facility] (BEAKER)[address] [place] [address] Potassium [Moles/Vol] 3.9 mmol/L Normal 3.5-4.9 [facility] Comment on above: Performed By: #### L [id number] ####[facility] (BEAKER)[address] [place] [address] Sodium [Moles/Vol] 139 mmol/L Normal 138.0-146.0 [facility] Comment on above: Performed By: #### L [id number] ####[facility] (BEAKER)[address] [place] [address] CO2 [Moles/Vol] 23.0 mmol/L Normal 21.0-29.0 [facility] Comment on above: Performed By: #### L [id number] ####[facility] (BEAKER)[address] [place] [address] Glucose [Mass/Vol] 208 mg/dL High 70-105 [facility] Comment on above: Performed By: #### L [id number] ####[facility] (BEAKER)[address] [place] [address] HCO3 (Bld) [Moles/Vol] 21.6 mmol/L Low 23.0-28.0 [facility] Comment on above: Performed By: #### L [id number] ####[facility] (BEAKER)[address] [place] [address] Hematocrit (Bld) [Volume fraction] 28 % Low 38-51 [facility] Comment on above: Performed By: #### L [id number] ####[facility] (BEAKER)[address] [address] Hemoglobin (Bld) [Mass/Vol] 9.5 g/dL Low 12.0-17.0 [facility] Comment on above: Performed By: #### L [id number] ####[facility] [address] POCT BASE EXCESS -4.0 mmol/L Low -2.0-3.0 [facility] Comment on above: Performed By: #### L [id number] ####[facility] ([facility])[address] [address] POCT IONIZED CALCIUM 1.22 mmol/L Normal 1.12-1.32 [facility] Comment on above: Performed By: #### L [id number] ####[facility] [address] POCT PCO2 38.6 mmHg Low 41.0-51.0 [facility] Comment on above: Performed By: #### L [id number] ####[facility] [address] POCT PH 7.36 Normal 7.31-7.41 [facility] Comment on above: Performed By: #### L [id number] ####[facility] [address] POCT PO2 265 mmHg High 80-105 [facility] Comment on above: Performed By: #### L [id number] ####[facility] (BEAKER)[address] [address] POCT SO2 100 % High 95-98 [facility] Comment on above: Performed By: #### L [id number] ####[facility] (BEAKER)[address] [address] Potassium [Moles/Vol] 3.9 mmol/L Normal 3.5-4.9 [facility] Comment on above: Performed By: #### L [id number] ####[facility] (BEAKER)[address] [place] [address] Sodium [Moles/Vol] 137 mmol/L Low 138.0-146.0 [facility] Comment on above: Performed By: #### L [id number] ####[facility] (BEAKER)[address] [place] [address] CO2 [Moles/Vol] 25.0 mmol/L Normal 21.0-29.0 [facility] Comment on above: Performed By: #### L [id number] ####[facility] [place] [address] Glucose [Mass/Vol] 216 mg/dL High 70-105 [facility] Comment on above: Performed By: #### L [id number] ####[facility] (BEAKER)[address] [place] [address] HCO3 (Bld) [Moles/Vol] 23.3 mmol/L Normal 23.0-28.0 [facility] Comment on above: Performed By: #### L [id number] ####[facility] (BEAKER)[address] [place] [address] Hematocrit (Bld) [Volume fraction] 28 % Low 38-51 [facility] Comment on above: Performed By: #### L [id number] ####[facility] (BEAKER)[address] [place] [address] Hemoglobin (Bld) [Mass/Vol] 9.5 g/dL Low 12.0-17.0 [facility] Comment on above: Performed By: #### L [id number] ####[facility] (BEAKER)[address] [place] [address] POCT BASE EXCESS -3.0 mmol/L Low -2.0-3.0 [facility] Comment on above: Performed By: #### L [id number] ####[facility] (BEAKER)[address] [place] [address] POCT IONIZED CALCIUM 1.29 mmol/L Normal 1.12-1.32 [facility] Comment on above: Performed By: #### L [id number] ####[facility] (BEAKER)[address] [place] [address] POCT PCO2 46.6 mmHg Normal 41.0-51.0 [facility] Comment on above: Performed By: #### L [id number] ####[facility] (BEAKER)[address] [place] [address] POCT PH 7.31 Normal 7.31-7.41 [facility] Comment on above: Performed By: #### L [id number] ####[facility] (BEAKER)[address] [place] [address] POCT PO2 348 mmHg High 80-105 [facility] Comment on above: Performed By: #### L [id number] ####[facility] (BEAKER)[address] [place] [address] POCT SO2 100 % High 95-98 [facility] Comment on above: Performed By: #### L [id number] ####[facility] ([facility])[address] [place] [address] Potassium [Moles/Vol] 4.7 mmol/L Normal 3.5-4.9 [facility] Comment on above: Performed By: #### L [id number] ####[facility] ([facility])[address] [place] [address] Sodium [Moles/Vol] 136 mmol/L Low 138.0-146.0 [facility] Comment on above: Performed By: #### L [id number] ####[facility] ([facility])[address] [place] [address] CO2 [Moles/Vol] 26.0 mmol/L Normal 21.0-29.0 [facility] Comment on above: Performed By: #### L [id number] ####[facility] ([facility])[address] [place] [address] Glucose [Mass/Vol] 173 mg/dL High 70-105 [facility] Comment on above: Performed By: #### L [id number] ####[facility] ([facility])[address] [place] [address] HCO3 (Bld) [Moles/Vol] 24.8 mmol/L Normal 23.0-28.0 [facility] Comment on above: Performed By: #### L [id number] ####[facility] (BEAKER)[address] [place] [address] Hematocrit (Bld) [Volume fraction] 30 % Low 38-51 [facility] Comment on above: Performed By: #### L [id number] ####[facility] (BEAKER)[address] [place] [address] Hemoglobin (Bld) [Mass/Vol] 10.2 g/dL Low 12.0-17.0 [facility] Comment on above: Performed By: #### L [id number] ####[facility] (BEAKER)[address] [place] [address] POCT BASE EXCESS 0.0 mmol/L Normal -2.0-3.0 [facility] Comment on above: Performed By: #### L [id number] ####[facility] (BEAKER)[address] [place] [address] POCT IONIZED CALCIUM 1.57 mmol/L Critically high 1.12-1.32 [facility] Comment on above: Performed By: #### L [id number] ####[facility] (BEAKER)[address] [place] [address] POCT PCO2 40.5 mmHg Low 41.0-51.0 [facility] Comment on above: Performed By: #### L [id number] ####[facility] (BEAKER)[address] [place] [address] POCT PH 7.40 Normal 7.31-7.41 [facility] Comment on above: Performed By: #### L [id number] ####[facility] (BEAKER)[address] [place] [address] POCT PO2 321 mmHg High 80-105 [facility] Comment on above: Performed By: #### L [id number] ####[facility] (BEAKER)[address] [place] [address] POCT SO2 100 % High 95-98 [facility] Comment on above: Performed By: #### L [id number] ####[facility] (BEAKER)[address] [place] [address] Potassium [Moles/Vol] 5.4 mmol/L High 3.5-4.9 [facility] Comment on above: Performed By: #### L [id number] ####[facility] (BEAKER)[address] [place] [address] Sodium [Moles/Vol] 134 mmol/L Low 138.0-146.0 [facility] Comment on above: Performed By: #### L [id number] ####[facility] (BEAKER)[address] [place] [address] CO2 [Moles/Vol] 25.0 mmol/L Normal 21.0-29.0 [facility] Comment on above: Performed By: #### L [id number] ####[facility] (BEAKER)[address] [place] [address] Glucose [Mass/Vol] 171 mg/dL High 70-105 [facility] Comment on above: Performed By: #### L [id number] ####[facility] (BEAKER)[address] [place] [address] HCO3 (Bld) [Moles/Vol] 23.6 mmol/L Normal 23.0-28.0 [facility] Comment on above: Performed By: #### L [id number] ####[facility] (BEAKER)[address] [place] [address] Hematocrit (Bld) [Volume fraction] 30 % Low 38-51 [facility] Comment on above: Performed By: #### L [id number] ####[facility] (BEAKER)[address] [place] [address] Hemoglobin (Bld) [Mass/Vol] 10.2 g/dL Low 12.0-17.0 [facility] Comment on above: Performed By: #### L [id number] ####[facility] [place] [address] POCT BASE EXCESS -2.0 mmol/L Normal -2.0-3.0 [facility] Comment on above: Performed By: #### L [id number] ####[facility] ([facility])[address] [address] POCT IONIZED CALCIUM 1.12 mmol/L Normal 1.12-1.32 [facility] Comment on above: Performed By: #### L [id number] ####[facility] [address] POCT PCO2 44.0 mmHg Normal 41.0-51.0 [facility] Comment on above: Performed By: #### L [id number] ####[facility] [address] POCT PH 7.34 Normal 7.31-7.41 [facility] Comment on above: Performed By: #### L [id number] ####[facility] [address] POCT PO2 390 mmHg High 80-105 [facility] Comment on above: Performed By: #### L [id number] ####[facility] (BEAKER)[address] [address] POCT SO2 100 % High 95-98 [facility] Comment on above: Performed By: #### L [id number] ####[facility] (BEAKER)[address] [address] Potassium [Moles/Vol] 5.4 mmol/L High 3.5-4.9 [facility] Comment on above: Performed By: #### L [id number] ####[facility] (BEAKER)[address] [place] [address] Sodium [Moles/Vol] 136 mmol/L Low 138.0-146.0 [facility] Comment on above: Performed By: #### L [id number] ####[facility] (BEAKER)[address] [place] [address] CO2 [Moles/Vol] 25.0 mmol/L Normal 21.0-29.0 [facility] Comment on above: Performed By: #### L [id number] ####[facility] [place] [address] Glucose [Mass/Vol] 184 mg/dL High 70-105 [facility] Comment on above: Performed By: #### L [id number] ####[facility] (BEAKER)[address] [place] [address] HCO3 (Bld) [Moles/Vol] 23.7 mmol/L Normal 23.0-28.0 [facility] Comment on above: Performed By: #### L [id number] ####[facility] (BEAKER)[address] [place] [address] Hematocrit (Bld) [Volume fraction] 33 % Low 38-51 [facility] Comment on above: Performed By: #### L [id number] ####[facility] (BEAKER)[address] [place] [address] Hemoglobin (Bld) [Mass/Vol] 11.2 g/dL Low 12.0-17.0 [facility] Comment on above: Performed By: #### L [id number] ####[facility] (BEAKER)[address] [place] [address] POCT BASE EXCESS -3.0 mmol/L Low -2.0-3.0 [facility] Comment on above: Performed By: #### L [id number] ####[facility] (BEAKER)[address] [place] [address] POCT IONIZED CALCIUM 1.09 mmol/L Low 1.12-1.32 [facility] Comment on above: Performed By: #### L [id number] ####[facility] (BEAKER)[address] [place] [address] POCT PCO2 46.1 mmHg Normal 41.0-51.0 [facility] Comment on above: Performed By: #### L [id number] ####[facility] (BEAKER)[address] [place] [address] POCT PH 7.32 Normal 7.31-7.41 [facility] Comment on above: Performed By: #### L [id number] ####[facility] (BEAKER)[address] [place] [address] POCT PO2 400 mmHg High 80-105 [facility] Comment on above: Performed By: #### L [id number] ####[facility] (BEAKER)[address] [place] [address] POCT SO2 100 % High 95-98 [facility] Comment on above: Performed By: #### L [id number] ####[facility] (BEAKER)[address] [place] [address] Potassium [Moles/Vol] 4.5 mmol/L Normal 3.5-4.9 [facility] Comment on above: Performed By: #### L [id number] ####[facility] (BEAKER)[address] [place] [address] Sodium [Moles/Vol] 136 mmol/L Low 138.0-146.0 [facility] Comment on above: Performed By: #### L [id number] ####[facility] (BEAKER)[address] [place] [address] CO2 [Moles/Vol] 25.0 mmol/L Normal 21.0-29.0 [facility] Comment on above: Performed By: #### L [id number] ####[facility] (BEAKER)[address] [place] [address] Glucose [Mass/Vol] 193 mg/dL High 70-105 [facility] Comment on above: Performed By: #### L [id number] ####[facility] (BEAKER)[address] [place] [address] HCO3 (Bld) [Moles/Vol] 23.6 mmol/L Normal 23.0-28.0 [facility] Comment on above: Performed By: #### L [id number] ####[facility] (BEAKER)[address] [place] [address] Hematocrit (Bld) [Volume fraction] 26 % Low 38-51 [facility] Comment on above: Performed By: #### L [id number] ####[facility] (BEAKER)[address] [place] [address] Hemoglobin (Bld) [Mass/Vol] 8.8 g/dL Low 12.0-17.0 [facility] Comment on above: Performed By: #### L [id number] ####[facility] (BEAKER)[address] [place], [place] [address] POCT BASE EXCESS -2.0 mmol/L Normal -2.0-3.0 [facility] Comment on above: Performed By: #### L [id number] ####[facility] (BEAKER)[address] [place], [place] [address] POCT IONIZED CALCIUM 1.06 mmol/L Low 1.12-1.32 [facility] Comment on above: Performed By: #### L [id number] ####[facility] (BEAKER)[address] [place] [address] POCT PCO2 40.9 mmHg Low 41.0-51.0 [facility] Comment on above: Performed By: #### L [id number] ####[facility] (BEAKER)[address] [place] [address] POCT PH 7.37 Normal 7.31-7.41 [facility] Comment on above: Performed By: #### L [id number] ####[facility] (BEAKER)[address] [place] [address] POCT PO2 510 mmHg High 80-105 [facility] Comment on above: Performed By: #### L [id number] ####[facility] (BEAKER)[address] [place] [address] POCT SO2 100 % High 95-98 [facility] Comment on above: Performed By: #### L [id number] ####[facility] (BEAKER)[address] [place] [address] Potassium [Moles/Vol] 4.4 mmol/L Normal 3.5-4.9 [facility] Comment on above: Performed By: #### L [id number] ####[facility] (BEAKER)[address] [place] [address] Sodium [Moles/Vol] 135 mmol/L Low 138.0-146.0 [facility] Comment on above: Performed By: #### L [id number] ####[facility] (BEAKER)[address] [place] [address] CO2 [Moles/Vol] 24.0 mmol/L Normal 21.0-29.0 [facility] Comment on above: Performed By: #### L [id number] ####[facility] (BEAKER)[address] [place] [address] Glucose [Mass/Vol] 185 mg/dL High 70-105 [facility] Comment on above: Performed By: #### L [id number] ####[facility] (BEAKER)[address] [place] [address] HCO3 (Bld) [Moles/Vol] 22.7 mmol/L Low 23.0-28.0 [facility] Comment on above: Performed By: #### L [id number] ####[facility] (BEAKER)[address] [place] [address] Hematocrit (Bld) [Volume fraction] 26 % Low 38-51 [facility] Comment on above: Performed By: #### L [id number] ####[facility] (BEAKER)[address] [address] Hemoglobin (Bld) [Mass/Vol] 8.8 g/dL Low 12.0-17.0 [facility] Comment on above: Performed By: #### L [id number] ####[facility] [address] POCT BASE EXCESS -2.0 mmol/L Normal -2.0-3.0 [facility] Comment on above: Performed By: #### L [id number] ####[facility] ([facility])[address] [address] POCT IONIZED CALCIUM 1.10 mmol/L Low 1.12-1.32 [facility] Comment on above: Performed By: #### L [id number] ####[facility] ([facility] [address] POCT PCO2 37.2 mmHg Low 41.0-51.0 [facility] Comment on above: Performed By: #### L [id number] ####[facility] ([facility])[address] [address] POCT PH 7.39 Normal 7.31-7.41 [facility] Comment on above: Performed By: #### L [id number] ####[facility] ([facility] [address] POCT PO2 485 mmHg High 80-105 [facility] Comment on above: Performed By: #### L [id number] ####[facility] (BEAKER)[address] [address] POCT SO2 100 % High 95-98 [facility] Comment on above: Performed By: #### L [id number] ####[facility] (BEAKER)[address] [address] Potassium [Moles/Vol] 3.7 mmol/L Normal 3.5-4.9 [facility] Comment on above: Performed By: #### L [id number] ####[facility] (BEAKER)[address] [place] [address] Sodium [Moles/Vol] 136 mmol/L Low 138.0-146.0 [facility] Comment on above: Performed By: #### L [id number] ####[facility] (BEAKER)[address] [place] [address] CO2 [Moles/Vol] 23.0 mmol/L Normal 21.0-29.0 [facility] Comment on above: Performed By: #### L [id number] ####[facility] (BEAKER)[address] [place] [address] Glucose [Mass/Vol] 132 mg/dL High 70-105 [facility] Comment on above: Performed By: #### L [id number] ####[facility] (BEAKER)[address] [place] [address] HCO3 (Bld) [Moles/Vol] 21.5 mmol/L Low 23.0-28.0 [facility] Comment on above: Performed By: #### L [id number] ####[facility] (BEAKER)[address] [place] [address] Hematocrit (Bld) [Volume fraction] 29 % Low 38-51 [facility] Comment on above: Performed By: #### L [id number] ####[facility] (BEAKER)[address] [place] [address] Hemoglobin (Bld) [Mass/Vol] 9.9 g/dL Low 12.0-17.0 [facility] Comment on above: Performed By: #### L [id number] ####[facility] (BEAKER)[address] [place] [address] POCT BASE EXCESS -4.0 mmol/L Low -2.0-3.0 [facility] Comment on above: Performed By: #### L [id number] ####[facility] (BEAKER)[address] [place] [address] POCT IONIZED CALCIUM 1.27 mmol/L Normal 1.12-1.32 [facility] Comment on above: Performed By: #### L [id number] ####[facility] (BEAKER)[address] [place] [address] POCT PCO2 38.3 mmHg Low 41.0-51.0 [facility] Comment on above: Performed By: #### L [id number] ####[facility] (BEAKER)[address] [place] [address] POCT PH 7.36 Normal 7.31-7.41 [facility] Comment on above: Performed By: #### L [id number] ####[facility] (BEAKER)[address] [place] [address] POCT PO2 214 mmHg High 80-105 [facility] Comment on above: Performed By: #### L [id number] ####[facility] (BEAKER)[address] [place] [address] POCT SO2 100 % High 95-98 [facility] Comment on above: Performed By: #### L [id number] ####[facility] (BEAKER)[address] [place] [address] Potassium [Moles/Vol] 3.9 mmol/L Normal 3.5-4.9 [facility] Comment on above: Performed By: #### L [id number] ####[facility] (BEAKER)[address] [place] [address] Sodium [Moles/Vol] 137 mmol/L Low 138.0-146.0 [facility] Comment on above: Performed By: #### L [id number] ####[facility] (BEAKER)[address] [place] [address] POCT BASE EXCESS Normal [facility] Comment on above: Performed By: #### L [id number] ####[facility] (BEAKER)[address] [place] [address] POCT GLUCOSE Normal [facility] Comment on above: Performed By: #### L [id number] ####[facility] (BEAKER)[address] [place] [address] POCT HCO3 Normal [facility] Comment on above: Performed By: #### L [id number] ####[facility] (BEAKER)[address] [place] [address] POCT HEMATOCRIT Normal [facility] Comment on above: Performed By: #### L [id number] ####[facility] [place] [address] POCT HEMOGLOBIN Normal [facility] Comment on above: Performed By: #### L [id number] ####[facility] [place] [address] POCT IONIZED CALCIUM Normal [facility] Comment on above: Performed By: #### L [id number] ####[facility] (BEAKER)[address] [place] [address] POCT PCO2 Normal [facility] Comment on above: Performed By: #### L [id number] ####[facility] (BEAKER)[address] [place] [address] POCT PH Normal [facility] Comment on above: Performed By: #### L [id number] ####[facility] (BEAKER)[address] [place] [address] POCT PO2 53 mmHg Low 80-105 [facility] Comment on above: Performed By: #### L [id number] ####[facility] (BEAKER)[address] [place] [address] POCT POTASSIUM Normal [facility] Comment on above: Performed By: #### L [id number] ####[facility] (BEAKER)[address] [place] [address] POCT SO2 85 % Low 95-98 [facility] Comment on above: Performed By: #### L [id number] ####[facility] (BEAKER)[address] [place] [address] POCT SODIUM Normal [facility] Comment on above: Performed By: #### L [id number] ####[facility] (BEAKER)[address] [place] [address] POCT TOTAL CO2 Normal [facility] Comment on above: Performed By: #### L [id number] ####[facility] [place] [address] CO2 [Moles/Vol] 25.0 mmol/L Normal 21.0-29.0 [facility] Comment on above: Performed By: #### L [id number] ####[facility] (BEAKER)[address] [place] [address] Glucose [Mass/Vol] 114 mg/dL High 70-105 [facility] Comment on above: Performed By: #### L [id number] ####[facility] (BEAKER)[address] [place] [address] HCO3 (Bld) [Moles/Vol] 23.4 mmol/L Normal 23.0-28.0 [facility] Comment on above: Performed By: #### L [id number] ####[facility] (BEAKER)[address] [place] [address] Hematocrit (Bld) [Volume fraction] 30 % Low 38-51 [facility] Comment on above: Performed By: #### L [id number] ####[facility] (BEAKER)[address] [place] [address] Hemoglobin (Bld) [Mass/Vol] 10.2 g/dL Low 12.0-17.0 [facility] Comment on above: Performed By: #### L [id number] ####[facility] (BEAKER)[address] [place] [address] POCT BASE EXCESS -2.0 mmol/L Normal -2.0-3.0 [facility] Comment on above: Performed By: #### L [id number] ####[facility] (BEAKER)[address] [place] [address] POCT IONIZED CALCIUM 1.19 mmol/L Normal 1.12-1.32 [facility] Comment on above: Performed By: #### L [id number] ####[facility] (BEAKER)[address] [place] [address] POCT PCO2 40.0 mmHg Low 41.0-51.0 [facility] Comment on above: Performed By: #### L [id number] ####[facility] (BEAKER)[address] [place] [address] POCT PH 7.38 Normal 7.31-7.41 [facility] Comment on above: Performed By: #### L [id number] ####[facility] (BEAKER)[address] [place] [address] POCT PO2 159 mmHg High 80-105 [facility] Comment on above: Performed By: #### L [id number] ####[facility] (BEAKER)[address] [place] [address] POCT SO2 99 % High 95-98 [facility] Comment on above: Performed By: #### L [id number] ####[facility] (BEAKER)[address] [place] [address] Potassium [Moles/Vol] 4.1 mmol/L Normal 3.5-4.9 [facility] Comment on above: Performed By: #### L [id number] ####[facility] (BEAKER)[address] [place] [address] Sodium [Moles/Vol] 137 mmol/L Low 138.0-146.0 [facility] Comment on above: Performed By: #### L [id number] ####[facility] (BEAKER)[address] [place] [address] PROTIME-INRon 06-26-2023 INR IN PPP BY COAGULATION ASSAY 1.29 High 0.90-1.10 [facility] Comment on above: Result Comment: [facility] P RECOMMENDED INR FOR WARFARIN THERAPY CONDITION INRPROPHYLAXIS OF VENOUS THROMBOSIS 2-3(HIGH-RISK SURGERY)TREATMENT OF VENOUS THROMBOSIS 2-3TREATMENT OF PULMONARY EMBOLISM 2-3PREVENTION OF SYSTEMIC EMBOLISM: 2-3 ACUTE MYOCARDIAL INFARCTION TISSUE HEART VALVES VALVULAR HEART DISEASE ATRIAL FIBRILLATION RECURRENT SYSTEMIC EMBOLISMMECHANICAL HEART VALVE 2.5-3.5 FROM: ORAL ANTICOAGULANTS. MECHANISM OF ACTION, CLINICAL EFFECTIVENESS, AND OPTIMAL THERAPEUTIC RANGE. CHEST 1995;108:231S-246S. Performed By: #### L [id number] ####[facility] (BEAKER)[address] [place] [address] PROTHROMBIN TIME (PT) IN PPP BY COAGULATION ASSAY 16.1 Seconds High 12.3-14.8 [facility] Comment on above: Performed By: #### L [id number] ####[facility] ([facility]AK[facility])[address] [place] [address] INR IN PPP BY COAGULATION ASSAY 1.37 High 0.90-1.10 [facility] Comment on above: Order Comment: Pre-o p diagnosis:Aortic valve disorder [I35.9] Result Comment: [facility] P RECOMMENDED INR FOR WARFARIN THERAPY CONDITION INRPROPHYLAXIS OF VENOUS THROMBOSIS 2-3(HIGH-RISK SURGERY)TREATMENT OF VENOUS THROMBOSIS 2-3TREATMENT OF PULMONARY EMBOLISM 2-3PREVENTION OF SYSTEMIC EMBOLISM: 2-3 ACUTE MYOCARDIAL INFARCTION TISSUE HEART VALVES VALVULAR HEART DISEASE ATRIAL FIBRILLATION RECURRENT SYSTEMIC EMBOLISMMECHANICAL HEART VALVE 2.5-3.5 FROM: ORAL ANTICOAGULANTS. MECHANISM OF ACTION, CLINICAL EFFECTIVENESS, AND OPTIMAL THERAPEUTIC RANGE. CHEST 1995;108:231S-246S. Performed By: #### L [id number] ####[facility] ([employer])[address] [place] [address] PROTHROMBIN TIME (PT) IN PPP BY COAGULATION ASSAY 16.9 Seconds High 12.3-14.8 [facility] Comment on above: Order Comment: Pre-o p diagnosis:Aortic valve disorder [I35.9] Performed By: #### L [id number] ####[facility] ([facility])[address] [place] [address] INR IN PPP BY COAGULATION ASSAY 1.06 Normal 0.90-1.10 [facility] Comment on above: Result Comment: [...] CHEST 1995;108:231S-246S. Performed By: #### L [id number] ####[facility] ([facility])[address] [place] [address] PROTHROMBIN TIME (PT) IN PPP BY COAGULATION ASSAY 13.8 Seconds Normal 12.3-14.8 [facility] Comment on above: Performed By: #### L [id number] ####[facility] ([facility])[address] [place] [address] TISSUE CULTUREon 06-26-2023 Bacteria identified Cx Nom (Unsp spec) No growth at 5 days Normal [facility] Comment on above: Order Comment: Pre-o p diagnosis:Aortic valve disorder [I35.9] Performed By: #### L [id number] ####[facility] ([facility])[address] [place] [address] GRAM STAIN RESULT Normal [facility] Comment on above: Order Comment: Pre-o p diagnosis:Aortic valve disorder [I35.9] Result Comment: No p olymorphonuclear leukocytes seenNo organisms seen Performed By: #### L [id number] ####[facility] ([facility])[address] [place] [address] 30on 06-25-2023 30 Normal [facility] ANESon 06-25-2023 ANES Normal [facility] APTTon 06-25-2023 ACTIVATED PARTIAL THROMBOPLASTIN TIME IN PPP BY COAGULATION ASSAY 31.3 Seconds Normal 25.0-35.0 [facility] Comment on above: Result Comment: Clin ical significance of the APTT is questionable in the presence of heparin. Performed By: #### L [id number] ####[facility] ([facility])[address] [place] [address] CBC WITH AUTO DIFFERENTIALon 06-25-2023 Basophils (Bld) [#/Vol] 0.04 10*3/uL Normal 0.00-0.20 [facility] Comment on above: Performed By: #### L [id number] ####[facility] ([facility])[address] [place] [address] Basophils/100 WBC (Bld) 0.8 % Normal 0.0-1.0 [facility] Comment on above: Performed By: #### L [id number] ####[facility] ([facility])[address] [place] [address] Eosinophils (Bld) [#/Vol] 0.38 10*3/uL Normal 0.00-0.50 [facility] Comment on above: Performed By: #### L [id number] ####[facility] ([facility])[address] [place] [address] Eosinophils/100 WBC (Bld) 7.7 % High 0.0-6.0 [facility] Comment on above: Performed By: #### L [id number] ####[facility] ([facility])[address] [place] [address] Erythrocyte distribution width (RBC) [Ratio] 16.0 % High 11.5-15.0 [facility] Comment on above: Performed By: #### L [id number] ####[facility] ([facility])[address] [place] [address] ERYTHROCYTE MEAN CORPUSCULAR HEMOGLOBIN CONCENTRATION (G/DL) BY AUTOMATED 34.0 g/dL Normal 32.0-35.0 [facility] Comment on above: Performed By: #### L [id number] ####[facility] ([facility])[address] [place] [address] Hematocrit (Bld) [Volume fraction] 32.6 % Low 39.0-55.0 [facility] Comment on above: Performed By: #### L [id number] ####[facility] ([facility])[address] [place] [address] Hemoglobin (Bld) [Mass/Vol] 11.1 g/dL Low 13.0-17.0 [facility] Comment on above: Performed By: #### L [id number] ####[facility] ([facility])[address] [place] [address] Immature granulocytes (Bld) [#/Vol] 0.02 10*3/uL Normal 0.00-0.20 [facility] Comment on above: Performed By: #### L [id number] ####[facility] [place] [address] Immature granulocytes/100 WBC (Bld) 0.4 % Normal 0.0-1.0 [facility] Comment on above: Performed By: #### L [id number] ####[facility] ([facility] [place] [address] Lymphocytes (Bld) [#/Vol] 0.80 10*3/uL Low 1.20-4.00 [facility] Comment on above: Performed By: #### L [id number] ####[facility] ([facility] [place] [address] Lymphocytes/100 WBC (Bld) 16.2 % Low 20.0-45.0 [facility] Comment on above: Performed By: #### L [id number] ####[facility] ([facility] [place] [address] MCH (RBC) [Entitic mass] 29.8 pg Normal 27.0-33.0 [facility] Comment on above: Performed By: #### L [id number] ####[facility] ([facility])[address] [place] [address] MCV (RBC) [Entitic vol] 87.4 fL Normal 82.0-98.0 [facility] Comment on above: Performed By: #### L [id number] ####[facility] ([facility])[address] [place] [address] Monocytes (Bld) [#/Vol] 0.42 10*3/uL Normal 0.10-1.00 [facility] Comment on above: Performed By: #### L [id number] ####[facility] ([facility])[address] [place] [address] Monocytes/100 WBC (Bld) 8.5 % Normal 5.0-12.0 [facility] Comment on above: Performed By: #### L [id number] ####[facility] ([facility] [place] [address] Neutrophils (Bld) [#/Vol] 3.29 10*3/uL Normal 1.60-7.60 [facility] Comment on above: Performed By: #### L [id number] ####[facility] ([facility])[address] [address] Neutrophils/100 WBC (Bld) 66.4 % Normal 40.0-72.0 [facility] Comment on above: Performed By: #### L [id number] ####[facility] ([facility])[address] [place] [address] NRBC (PER 100 WBCS) BY AUTOMATED COUNT 0.0 % Normal 0 [facility] Comment on above: Performed By: #### L [id number] ####[facility] ([facility])[address] [place] [address] PLATELETS (10*3/UL) IN BLOOD AUTOMATED COUNT 142 10*3/uL Low 150-400 [facility] Comment on above: Performed By: #### L [id number] ####[facility] ([facility])[address] [place] [address] RBC (Bld) [#/Vol] 3.73 10*6/uL Low 4.20-5.70 [facility] Comment on above: Performed By: #### L [id number] ####[facility] ([facility])[address] [address] WBC (Bld) [#/Vol] 4.95 10*3/uL Normal 4.00-10.60 [facility] Comment on above: Performed By: #### L [id number] ####[facility] [place] [address] COMPREHENSIVE METABOLIC PANE Braulio 06-25-2023 Albumin [Mass/Vol] 3.9 g/dL Normal 3.5-5.7 [facility] Comment on above: Performed By: #### L [id number] ####[facility] ([facility])[address] [place] [address] ALP [Catalytic activity/Vol] 49 U/L Normal 34-104 [facility] Comment on above: Performed By: #### L [id number] ####[facility] ([facility])[address] [place] [address] ALT [Catalytic activity/Vol] 13 U/L Normal 7-52 [facility] Comment on above: Performed By: #### L [id number] ####[facility] ([facility])[address] [place] [address] Anion gap [Moles/Vol] 11 mmol/L Normal 7-20 [facility] Comment on above: Performed By: #### L [id number] ####[facility] ([facility])[address] [place] [address] AST [Catalytic activity/Vol] 12 U/L Low 13-39 [facility] Comment on above: Performed By: #### L [id number] ####[facility] [place] [address] Bilirubin [Mass/Vol] 0.8 mg/dL Normal 0.3-1.0 [facility] Comment on above: Performed By: #### L [id number] ####[facility] ([facility])[address] [place] [address] Calcium [Mass/Vol] 8.8 mg/dL Normal 8.6-10.3 [facility] Comment on above: Performed By: #### L [id number] ####[facility] ([facility])[address] [place] [address] Chloride [Moles/Vol] 102 mmol/L Normal 98-107 [facility] Comment on above: Performed By: #### L [id number] ####[facility] ([facility])[address] [place] [address] CO2 [Moles/Vol] 26 mmol/L Normal 21-31 [facility] Comment on above: Performed By: #### L [id number] ####[facility] ([facility] [place] [address] Creatinine [Mass/Vol] 0.84 mg/dL Normal 0.70-1.30 [facility] Comment on above: Performed By: #### L [id number] ####[facility] ([facility] [place] [address] GLOMERULAR FILTRATION RATE ML/MIN/1.73 SQ M.PREDICTED 106.2 mL/min/1.73m*2 Normal >60.0 [facility] Comment on above: Result Comment: The [facility]???s estimated glomerular filtration rate (eGFR) [...] of individuals. Performed By: #### L [id number] ####[facility] ([facility])[address] [place] [address] Glucose [Mass/Vol] 93 mg/dL Normal 70-100 [facility] Comment on above: Performed By: #### L [id number] ####[facility] ([facility])[address] [place] [address] Potassium [Moles/Vol] 4.3 mmol/L Normal 3.5-5.1 [facility] Comment on above: Performed By: #### L [id number] ####[facility] ([facility])[address] [place] [address] Protein [Mass/Vol] 6.2 g/dL Normal 6.0-8.3 [facility] Comment on above: Performed By: #### L [id number] ####[facility] ([facility] [place] [address] Sodium [Moles/Vol] 135 mmol/L Low 136-145 [facility] Comment on above: Performed By: #### L [id number] ####[facility] ([facility])[address] [place] [address] Urea nitrogen [Mass/Vol] 15 mg/dL Normal 7-25 [facility] Comment on above: Performed By: #### L [id number] ####[facility] ([facility])[address] [place] [address] UREA NITROGEN/CREATININE (MASS RATIO) IN SER/PLAS 17.9 Normal [facility] Comment on above: Performed By: #### L [id number] ####[facility] ([facility])[address] [place] [address] MAGNESIUMon 06-25-2023 Magnesium [Mass/Vol] 1.9 mg/dL Normal 1.9-2.7 [facility] Comment on above: Performed By: #### L [id number] ####[facility] ([facility])[address] [place] [address] MRSA/MSSA DNA NASALon 2023 MRSA DNA Negative Normal Negative [facility] Comment on [...] preclude nasal colonization. Performed By: #### L [id number] ####[facility] ([facility])[address] [place] [address] MSSA DNA Negative Normal Negative [facility] Comment on [...] preclude nasal colonization. Performed By: #### L [id number] ####[facility] ([facility])[address] [place] [address] PROTIME-INRon 06-25-2023 INR IN PPP BY COAGULATION ASSAY 1.02 Normal 0.90-1.10 [facility] Comment on above: Result Comment: [...] CHEST 1995;[id number]. Performed By: #### L [id number] ####[facility])[address] [place] [address] PROTHROMBIN TIME (PT) IN PPP BY COAGULATION ASSAY 13.4 Seconds Normal 12.3-14.8 [facility] Comment on above: Performed By: #### L [id number] ####[facility] ([facility])[address] [place] [address] TYPE AND SCREENon 06-25-2023 AB SCREEN Negative Normal [facility] Comment on above: Performed By: #### L [id number] ####[facility]OD [facility], ABO group Nom (Bld) A Normal [facility] Comment on above: Performed By: #### L [id number] ####[facility], RH TYPE IN BLOOD Negative Normal [facility] Comment on above: Performed By: #### L [id number] ####[facility], URINALYSISon 06-25-2023 BILIRUBIN, TOTAL PRESENCE IN URINE Negative Normal Negative [facility] Comment on above: Performed By: #### L [id number] ####[facility] [place] [address] Clarity (U) Clear Normal Clear [facility] Comment on above: Performed By: #### L [id number] ####[facility] ([facility])[address] [place] [address] Color (U) Kylie Abnormal Yellow [facility] Comment on above: Performed By: #### L [id number] ####[facility] ([facility])[address] [place] [address] Glucose (U) [Mass/Vol] Negative Normal Negative [facility] Comment on above: Performed By: #### L [id number] ####[facility] ([facility])[address] [place] [address] HEMOGLOBIN PRESENCE IN URINE Negative Normal Negative [facility] Comment on above: Performed By: #### L [id number] ####[facility] ([facility] [place] [address] Ketones Ql (U) Negative Normal Negative [facility] Comment on above: Performed By: #### L [id number] ####[facility] ([facility])[address] [place] [address] LEUKOCYTE ESTERASE PRESENCE IN URINE BY TEST STRIP Negative Normal Negative [facility] Comment on above: Performed By: #### L [id number] ####[facility] ([facility])[address] [place] [address] NITRITE PRESENCE IN URINE Negative Normal Negative [facility] Comment on above: Performed By: #### L [id number] ####[facility] ([facility] [place] [address] pH (U) 5.0 [pH] Normal 5.0-8.0 [facility] Comment on above: Performed By: #### L [id number] ####[facility] ([facility])[address] [place] [address] Protein (U) [Mass/Vol] 100 mg/dL Abnormal Negative [facility] Comment on above: Performed By: #### L [id number] ####[facility] ([facility])[address] [place] [address] Specific gravity (U) [Rel density] 1.033 High 1.015-1.020 [facility] Comment on above: Performed By: #### L [id number] ####[facility] ([facility])[address] [place] [address] UROBILINOGEN (EU/DL) IN URINE 2.0 EU/dL Abnormal Negative [facility] Comment on above: Performed By: #### L [id number] ####[facility] ([facility])[address] [place] [address] URINALYSIS MICROSCOPICon CALCIUM OXALATE CRYSTALS (#/HPF) IN URINE Occasional Abnormal None Seen [facility] Comment on above: Performed By: #### L [id number] ####[facility] ([facility])[address] [place] [address] CASTS IN URINE Normal [facility] Comment on above: Performed By: #### L [id number] ####[facility] ([facility])[address] [place] [address] CRYSTALS IN URINE Present Abnormal None Seen [facility] Comment on above: Performed By: #### L [id number] ####[facility] ([facility])[address] [place] [address] MUCUS (#/HPF) IN URINE SEDIMENT Moderate Abnormal None Seen, Occasional, Few [facility] Comment on above: Performed By: #### L [id number] ####[facility] ([facility])[address] [place] [address] RBC (#/HPF) IN URINE SEDIMENT 3-5 Abnormal None Seen [facility] Comment on above: Performed By: #### L [id number] ####[facility] ([facility] [place] [address] SQUAMOUS EPITHELIAL CELLS (#/HPF) IN URINE SEDIMENT Few Abnormal None Seen, Occasional [facility] Comment on above: Performed By: #### L [id number] ####[facility] ([facility])[address] [place] [address] WBC (LEUKOCYTE) (#/HPF) IN URINE SEDIMENT 0-2 Abnormal None Seen [facility] Comment on above: Performed By: #### L [id number] ####[facility] ([facility])[address] [place] [address] 30on 06-24-2023 30 Normal [facility] 30 Normal [facility] 30 Normal [facility] ANESon 06-24-2023 ANES Normal [facility] CBC WITH AUTO DIFFERENTIALon 06-24-2023 Basophils (Bld) [#/Vol] 0.03 10*3/uL Normal 0.00-0.20 [facility] Comment on above: Performed By: #### L [id number] ####[facility] ([facility] [place] [address] Basophils/100 WBC (Bld) 0.4 % Normal 0.0-1.0 [facility] Comment on above: Performed By: #### L [id number] ####[facility] ([facility])[address] [place] [address] Eosinophils (Bld) [#/Vol] 0.57 10*3/uL High 0.00-0.50 [facility] Comment on above: Performed By: #### L [id number] ####[facility] ([facility])[address] [place] [address] Eosinophils/100 WBC (Bld) 7.7 % High 0.0-6.0 [facility] Comment on above: Performed By: #### L [id number] ####[facility] ([facility])[address] [place] [address] Erythrocyte distribution width (RBC) [Ratio] 16.3 % High 11.5-15.0 [facility] Comment on above: Performed By: #### L [id number] ####[facility] ([facility])[address] [place] [address] ERYTHROCYTE MEAN CORPUSCULAR HEMOGLOBIN CONCENTRATION (G/DL) BY AUTOMATED 33.1 g/dL Normal 32.0-35.0 [facility] Comment on above: Performed By: #### L [id number] ####[facility] ([facility])[address] [place] [address] Hematocrit (Bld) [Volume fraction] 35.3 % Low 39.0-55.0 [facility] Comment on above: Performed By: #### L [id number] ####[facility] ([facility])[address] [place] [address] Hemoglobin (Bld) [Mass/Vol] 11.7 g/dL Low 13.0-17.0 [facility] Comment on above: Performed By: #### L [id number] ####[facility] ([facility])[address] [place] [address] Immature granulocytes (Bld) [#/Vol] 0.03 10*3/uL Normal 0.00-0.20 [facility] Comment on above: Performed By: #### L [id number] ####[facility] ([facility])[address] [place] [address] Immature granulocytes/100 WBC (Bld) 0.4 % Normal 0.0-1.0 [facility] Comment on above: Performed By: #### L [id number] ####[facility] ([facility])[address] [place] [address] Lymphocytes (Bld) [#/Vol] 1.05 10*3/uL Low 1.20-4.00 [facility] Comment on above: Performed By: #### L [id number] ####[facility] ([facility])[address] [place] [address] Lymphocytes/100 WBC (Bld) 14.2 % Low 20.0-45.0 [facility] Comment on above: Performed By: #### L [id number] ####[facility] ([facility])[address] [place] [address] MCH (RBC) [Entitic mass] 29.3 pg Normal 27.0-33.0 [facility] Comment on above: Performed By: #### L [id number] ####[facility] ([facility])[address] [place] [address] MCV (RBC) [Entitic vol] 88.5 fL Normal 82.0-98.0 [facility] Comment on above: Performed By: #### L [id number] ####[facility] ([facility])[address] [place] [address] Monocytes (Bld) [#/Vol] 0.50 10*3/uL Normal 0.10-1.00 [facility] Comment on above: Performed By: #### L [id number] ####[facility] ([facility])[address] [place] [address] Monocytes/100 WBC (Bld) 6.8 % Normal 5.0-12.0 [facility] Comment on above: Performed By: #### L [id number] ####[facility] ([facility])[address] [place] [address] Neutrophils (Bld) [#/Vol] 5.20 10*3/uL Normal 1.60-7.60 [facility] Comment on above: Performed By: #### L [id number] ####[facility] ([facility])[address] [place] [address] Neutrophils/100 WBC (Bld) 70.5 % Normal 40.0-72.0 [facility] Comment on above: Performed By: #### L [id number] ####[facility] ([facility])[address] [place] [address] NRBC (PER 100 WBCS) BY AUTOMATED COUNT 0.0 % Normal 0 [facility] Comment on above: Performed By: #### L [id number] ####[facility] ([facility])[address] [address] PLATELETS (10*3/UL) IN BLOOD AUTOMATED COUNT 141 10*3/uL Low 150-400 [facility] Comment on above: Performed By: #### L [id number] ####[facility] ([facility])[address] [address] RBC (Bld) [#/Vol] 3.99 10*6/uL Low 4.20-5.70 [facility] Comment on above: Performed By: #### L [id number] ####[facility] ([facility])[address] [place] [address] WBC (Bld) [#/Vol] 7.38 10*3/uL Normal 4.00-10.60 [facility] Comment on above: Performed By: #### L [id number] ####[facility] ([facility])[address] [place] [address] COMPREHENSIVE METABOLIC PANE Braulio 06-24-2023 Albumin [Mass/Vol] 4.1 g/dL Normal 3.5-5.7 [facility] Comment on above: Performed By: #### L [id number] ####[facility] ([facility])[address] [place] [address] ALP [Catalytic activity/Vol] 53 U/L Normal 34-104 [facility] Comment on above: Performed By: #### L [id number] ####[facility] [place] [address] ALT [Catalytic activity/Vol] 12 U/L Normal 7-52 [facility] Comment on above: Performed By: #### L [id number] ####[facility] ([facility] [place] [address] Anion gap [Moles/Vol] 12 mmol/L Normal 7-20 [facility] Comment on above: Performed By: #### L [id number] ####[facility] ([facility])[address] [place] [address] AST [Catalytic activity/Vol] 11 U/L Low 13-39 [facility] Comment on above: Performed By: #### L [id number] ####[facility] ([facility])[address] [place] [address] Bilirubin [Mass/Vol] 0.9 mg/dL Normal 0.3-1.0 [facility] Comment on above: Performed By: #### L [id number] ####[facility] (BEAKER)[address] [place] [address] Calcium [Mass/Vol] 9.0 mg/dL Normal 8.6-10.3 [facility] Comment on above: Performed By: #### L [id number] ####[facility] (BEAKER)[address] [place] [address] Chloride [Moles/Vol] 100 mmol/L Normal 98-107 [facility] Comment on above: Performed By: #### L [id number] ####[facility] (BEAKER)[address] [place] [address] CO2 [Moles/Vol] 26 mmol/L Normal 21-31 [facility] Comment on above: Performed By: #### L [id number] ####[facility] (BEAKER)[address] [place] [address] Creatinine [Mass/Vol] 0.84 mg/dL Normal 0.70-1.30 [facility] Comment on above: Performed By: #### L [id number] ####[facility] (BEAKER)[address] [place] [address] GLOMERULAR FILTRATION RATE ML/MIN/1.73 SQ M.PREDICTED 106.2 mL/min/1.73m*2 Normal >60.0 [facility] Comment on above: Result Comment: The [facility]???s estimated glomerular filtration rate (eGFR) [...] of individuals. Performed By: #### L [id number] ####[facility] ([facility])[address] [place] [address] Glucose [Mass/Vol] 95 mg/dL Normal 70-100 [facility] Comment on above: Performed By: #### L [id number] ####[facility] ([facility])[address] [place] [address] Potassium [Moles/Vol] 3.9 mmol/L Normal 3.5-5.1 [facility] Comment on above: Performed By: #### L [id number] ####[facility] ([facility])[address] [place] [address] Protein [Mass/Vol] 6.5 g/dL Normal 6.0-8.3 [facility] Comment on above: Performed By: #### L [id number] ####[facility] ([facility])[address] [place] [address] Sodium [Moles/Vol] 134 mmol/L Low 136-145 [facility] Comment on above: Performed By: #### L [id number] ####[facility] ([facility])[address] [place] [address] Urea nitrogen [Mass/Vol] 12 mg/dL Normal 7-25 [facility] Comment on above: Performed By: #### L [id number] ####[facility] ([facility])[address] [place] [address] UREA NITROGEN/CREATININE (MASS RATIO) IN SER/PLAS 14.3 Normal [facility] Comment on above: Performed By: #### L [id number] ####[facility] ([facility])[address] [place] [address] Documentationon 06-24-2023 Documentation Normal [facility] HPon 06-24-2023 HP Normal [facility] MAGNESIUMon 06-24-2023 Magnesium [Mass/Vol] 1.9 mg/dL Normal 1.9-2.7 [facility] Comment on above: Performed By: #### L [id number] ####[facility] (BEAKER)[address] [place] [address] 30on 06-23-2023 30 Normal [facility] 30 Normal [facility] CBC WITH AUTO DIFFERENTIALon 06-23-2023 Basophils (Bld) [#/Vol] 0.04 10*3/uL Normal 0.00-0.20 [facility] Comment on above: Performed By: #### L [id number] ####[facility] (BEAKER)[address] [place] [address] Basophils/100 WBC (Bld) 0.5 % Normal 0.0-1.0 [facility] Comment on above: Performed By: #### L [id number] ####[facility] (BEAKER)[address] [place] [address] Eosinophils (Bld) [#/Vol] 0.56 10*3/uL High 0.00-0.50 [facility] Comment on above: Performed By: #### L [id number] ####[facility] (BEAKER)[address] [place] [address] Eosinophils/100 WBC (Bld) 7.5 % High 0.0-6.0 [facility] Comment on above: Performed By: #### L [id number] ####[facility] (BEAKER)[address] [place] [address] Erythrocyte distribution width (RBC) [Ratio] 16.7 % High 11.5-15.0 [facility] Comment on above: Performed By: #### L [id number] ####[facility] (BEAKER)[address] [place] [address] ERYTHROCYTE MEAN CORPUSCULAR HEMOGLOBIN CONCENTRATION (G/DL) BY AUTOMATED 33.2 g/dL Normal 32.0-35.0 [facility] Comment on above: Performed By: #### L [id number] ####[facility] (BEAKER)[address] [place] [address] Hematocrit (Bld) [Volume fraction] 34.9 % Low 39.0-55.0 [facility] Comment on above: Performed By: #### L [id number] ####[facility] (BEAKER)[address] [place] [address] Hemoglobin (Bld) [Mass/Vol] 11.6 g/dL Low 13.0-17.0 [facility] Comment on above: Performed By: #### L [id number] ####[facility] (BEAKER)[address] [place] [address] Immature granulocytes (Bld) [#/Vol] 0.03 10*3/uL Normal 0.00-0.20 [facility] Comment on above: Performed By: #### L [id number] ####[facility] (BEAKER)[address] [place] [address] Immature granulocytes/100 WBC (Bld) 0.4 % Normal 0.0-1.0 [facility] Comment on above: Performed By: #### L [id number] ####[facility] (BEAKER)[address] [place] [address] Lymphocytes (Bld) [#/Vol] 1.08 10*3/uL Low 1.20-4.00 [facility] Comment on above: Performed By: #### L [id number] ####[facility] (BEAKER)[address] [place] [address] Lymphocytes/100 WBC (Bld) 14.5 % Low 20.0-45.0 [facility] Comment on above: Performed By: #### L [id number] ####[facility] (BEAKER)[address] [place] [address] MCH (RBC) [Entitic mass] 29.6 pg Normal 27.0-33.0 [facility] Comment on above: Performed By: #### L [id number] ####[facility] ([facility])[address] [place] [address] MCV (RBC) [Entitic vol] 89.0 fL Normal 82.0-98.0 [facility] Comment on above: Performed By: #### L [id number] ####[facility] ([facility])[address] [place] [address] Monocytes (Bld) [#/Vol] 0.50 10*3/uL Normal 0.10-1.00 [facility] Comment on above: Performed By: #### L [id number] ####[facility] ([facility])[address] [place] [address] Monocytes/100 WBC (Bld) 6.7 % Normal 5.0-12.0 [facility] Comment on above: Performed By: #### L [id number] ####[facility] ([facility])[address] [place] [address] Neutrophils (Bld) [#/Vol] 5.24 10*3/uL Normal 1.60-7.60 [facility] Comment on above: Performed By: #### L [id number] ####[facility] ([facility])[address] [place] [address] Neutrophils/100 WBC (Bld) 70.4 % Normal 40.0-72.0 [facility] Comment on above: Performed By: #### L [id number] ####[facility] ([facility])[address] [place] [address] NRBC (PER 100 WBCS) BY AUTOMATED COUNT 0.0 % Normal 0 [facility] Comment on above: Performed By: #### L [id number] ####[facility] [place] [address] PLATELETS (10*3/UL) IN BLOOD AUTOMATED COUNT 120 10*3/uL Low 150-400 [facility] Comment on above: Performed By: #### L [id number] ####[facility] [place] [address] RBC (Bld) [#/Vol] 3.92 10*6/uL Low 4.20-5.70 [facility] Comment on above: Performed By: #### L [id number] ####[facility] ([facility])[address] [place] [address] WBC (Bld) [#/Vol] 7.45 10*3/uL Normal 4.00-10.60 [facility] Comment on above: Performed By: #### L [id number] ####[facility] ([facility])[address] [place] [address] COMPREHENSIVE METABOLIC PANE Braulio 06-23-2023 Albumin [Mass/Vol] 4.1 g/dL Normal 3.5-5.7 [facility] Comment on above: Performed By: #### L [id number] ####[facility] ([facility])[address] [place] [address] ALP [Catalytic activity/Vol] 52 U/L Normal 34-104 [facility] Comment on above: Performed By: #### L [id number] ####[facility] ([facility])[address] [place] [address] ALT [Catalytic activity/Vol] 12 U/L Normal 7-52 [facility] Comment on above: Performed By: #### L [id number] ####[facility] ([facility])[address] [place] [address] Anion gap [Moles/Vol] 9 mmol/L Normal 7-20 [facility] Comment on above: Performed By: #### L [id number] ####[facility] ([facility])[address] [place] [address] AST [Catalytic activity/Vol] 9 U/L Low 13-39 [facility] Comment on above: Performed By: #### L [id number] ####[facility] ([facility])[address] [place] [address] Bilirubin [Mass/Vol] 1.0 mg/dL Normal 0.3-1.0 [facility] Comment on above: Performed By: #### L [id number] ####[facility] ([facility] [place] [address] Calcium [Mass/Vol] 8.7 mg/dL Normal 8.6-10.3 [facility] Comment on above: Performed By: #### L [id number] ####[facility] ([facility])[address] [place] [address] Chloride [Moles/Vol] 101 mmol/L Normal 98-107 [facility] Comment on above: Performed By: #### L [id number] ####[facility] ([facility])[address] [place] [address] CO2 [Moles/Vol] 27 mmol/L Normal 21-31 [facility] Comment on above: Performed By: #### L [id number] ####[facility] (DAM[facility])[address] [place] [address] Creatinine [Mass/Vol] 0.77 mg/dL Normal 0.70-1.30 [facility] Comment on above: Performed By: #### L [id number] ####[facility] ([facility])[address] [place] [address] GLOMERULAR FILTRATION RATE ML/MIN/1.73 SQ M.PREDICTED 109.1 mL/min/1.73m*2 Normal >60.0 [facility] Comment on above: Result Comment: The [facility]???s estimated glomerular filtration rate (eGFR) [...] of individuals. Performed By: #### L [id number] ####[facility] ([facility])[address] [place] [address] Glucose [Mass/Vol] 106 mg/dL High 70-100 [facility] Comment on above: Performed By: #### L [id number] ####[facility] ([facility])[address] [place] [address] Potassium [Moles/Vol] 4.1 mmol/L Normal 3.5-5.1 [facility] Comment on above: Performed By: #### L [id number] ####[facility] ([facility])[address] [place] [address] Protein [Mass/Vol] 6.2 g/dL Normal 6.0-8.3 [facility] Comment on above: Performed By: #### L [id number] ####[facility] ([facility])[address] [place] [address] Sodium [Moles/Vol] 133 mmol/L Low 136-145 [facility] Comment on above: Performed By: #### L [id number] ####[facility] ([facility])[address] [place] [address] Urea nitrogen [Mass/Vol] 13 mg/dL Normal 7-25 [facility] Comment on above: Performed By: #### L [id number] ####[facility] ([facility])[address] [place] [address] UREA NITROGEN/CREATININE (MASS RATIO) IN SER/PLAS 16.9 Normal [facility] Comment on above: Performed By: #### L [id number] ####[facility] ([facility])[address] [place] [address] CONSULTon 06-23-2023 CONSULT Normal [facility] 30on 06-22-2023 30 Normal [facility] 30 Normal [facility] APTTon 06-22-2023 ACTIVATED PARTIAL THROMBOPLASTIN TIME IN PPP BY COAGULATION ASSAY 31.2 Seconds Normal 25.0-35.0 [facility] Comment on above: Result Comment: Clin ical significance of the APTT is questionable in the presence of heparin. Performed By: #### L [id number] ####[facility] ([facility] [place] [address] CBC WITH AUTO DIFFERENTIALon 06-22-2023 Basophils (Bld) [#/Vol] 0.03 10*3/uL Normal 0.00-0.20 [facility] Comment on above: Performed By: #### L [id number] ####[facility] ([facility])[address] [place] [address] Basophils/100 WBC (Bld) 0.4 % Normal 0.0-1.0 [facility] Comment on above: Performed By: #### L [id number] ####[facility] ([facility])[address] [place] [address] Eosinophils (Bld) [#/Vol] 0.39 10*3/uL Normal 0.00-0.50 [facility] Comment on above: Performed By: #### L [id number] ####[facility] ([facility])[address] [place] [address] Eosinophils/100 WBC (Bld) 5.0 % Normal 0.0-6.0 [facility] Comment on above: Performed By: #### L [id number] ####[facility] ([facility])[address] [place] [address] Erythrocyte distribution width (RBC) [Ratio] 16.3 % High 11.5-15.0 [facility] Comment on above: Performed By: #### L [id number] ####[facility] ([facility])[address] [place] [address] ERYTHROCYTE MEAN CORPUSCULAR HEMOGLOBIN CONCENTRATION (G/DL) BY AUTOMATED 33.1 g/dL Normal 32.0-35.0 [facility] Comment on above: Performed By: #### L [id number] ####[facility] ([facility] [place] [address] Hematocrit (Bld) [Volume fraction] 35.6 % Low 39.0-55.0 [facility] Comment on above: Performed By: #### L [id number] ####[facility] (BEAKER)[address] [place] [address] Hemoglobin (Bld) [Mass/Vol] 11.8 g/dL Low 13.0-17.0 [facility] Comment on above: Performed By: #### L [id number] ####[facility] (BEAKER)[address] [place] [address] Immature granulocytes (Bld) [#/Vol] 0.02 10*3/uL Normal 0.00-0.20 [facility] Comment on above: Performed By: #### L [id number] ####[facility] ([facility])[address] [place] [address] Immature granulocytes/100 WBC (Bld) 0.3 % Normal 0.0-1.0 [facility] Comment on above: Performed By: #### L [id number] ####[facility] (BEAKER)[address] [place] [address] Lymphocytes (Bld) [#/Vol] 0.72 10*3/uL Low 1.20-4.00 [facility] Comment on above: Performed By: #### L [id number] ####[facility] (BEAKER)[address] [place] [address] Lymphocytes/100 WBC (Bld) 9.2 % Low 20.0-45.0 [facility] Comment on above: Performed By: #### L [id number] ####[facility] (BEAKER)[address] [place] [address] MCH (RBC) [Entitic mass] 29.0 pg Normal 27.0-33.0 [facility] Comment on above: Performed By: #### L [id number] ####[facility] (BEAKER)[address] [place] [address] MCV (RBC) [Entitic vol] 87.5 fL Normal 82.0-98.0 [facility] Comment on above: Performed By: #### L [id number] ####[facility] (BEAKER)[address] [place] [address] Monocytes (Bld) [#/Vol] 0.41 10*3/uL Normal 0.10-1.00 [facility] Comment on above: Performed By: #### L [id number] ####[facility] (BEAKER)[address] [place] [address] Monocytes/100 WBC (Bld) 5.2 % Normal 5.0-12.0 [facility] Comment on above: Performed By: #### L [id number] ####[facility] (BEAKER)[address] [place] [address] Neutrophils (Bld) [#/Vol] 6.24 10*3/uL Normal 1.60-7.60 [facility] Comment on above: Performed By: #### L [id number] ####[facility] (BEAKER)[address] [place] [address] Neutrophils/100 WBC (Bld) 79.9 % High 40.0-72.0 [facility] Comment on above: Performed By: #### L [id number] ####[facility] (BEAKER)[address] [place] [address] NRBC (PER 100 WBCS) BY AUTOMATED COUNT 0.0 % Normal 0 [facility] Comment on above: Performed By: #### L [id number] ####[facility] (BEAKER)[address] [place] [address] PLATELETS (10*3/UL) IN BLOOD AUTOMATED COUNT 110 10*3/uL Low 150-400 [facility] Comment on above: Performed By: #### L [id number] ####[facility] ([facility]AKER)[address] [place] [address] RBC (Bld) [#/Vol] 4.07 10*6/uL Low 4.20-5.70 [facility] Comment on above: Performed By: #### L [id number] ####[facility] (BEAKER)[address] [place] [address] WBC (Bld) [#/Vol] 7.81 10*3/uL Normal 4.00-10.60 [facility] Comment on above: Performed By: #### L [id number] ####[facility] ([facility] [place] [address] CKon 06-22-2023 CREATINE KINASE (U/L) IN SER/PLAS 22.0 U/L Low 30.0-223.0 [facility] Comment on above: Performed By: #### L [id number] ####[facility] ([facility] [place] [address] COMPREHENSIVE METABOLIC PANE Braulio 06-22-2023 Albumin [Mass/Vol] 4.0 g/dL Normal 3.5-5.7 [facility] Comment on above: Performed By: #### L [id number] ####[facility] ([facility] [place] [address] ALP [Catalytic activity/Vol] 52 U/L Normal 34-104 [facility] Comment on above: Performed By: #### L [id number] ####[facility] (BEAKER)[address] [place] [address] ALT [Catalytic activity/Vol] 13 U/L Normal 7-52 [facility] Comment on above: Performed By: #### L [id number] ####[facility] (BEAKER)[address] [place] [address] Anion gap [Moles/Vol] 12 mmol/L Normal 7-20 [facility] Comment on above: Performed By: #### L [id number] ####[facility] (BEAKER)[address] [place] [address] AST [Catalytic activity/Vol] 9 U/L Low 13-39 [facility] Comment on above: Performed By: #### L [id number] ####[facility] (BEAKER)[address] [place] [address] Bilirubin [Mass/Vol] 1.1 mg/dL High 0.3-1.0 [facility] Comment on above: Performed By: #### L [id number] ####[facility] ([facility])[address] [place] [address] Calcium [Mass/Vol] 9.1 mg/dL Normal 8.6-10.3 [facility] Comment on above: Performed By: #### L [id number] ####[facility] (BEAKER)[address] [place] [address] Chloride [Moles/Vol] 100 mmol/L Normal 98-107 [facility] Comment on above: Performed By: #### L [id number] ####[facility] (BEAKER)[address] [place] [address] CO2 [Moles/Vol] 26 mmol/L Normal 21-31 [facility] Comment on above: Performed By: #### L [id number] ####[facility] [place] [address] Creatinine [Mass/Vol] 0.82 mg/dL Normal 0.70-1.30 [facility] Comment on above: Performed By: #### L [id number] ####[facility] ([facility])[address] [place] [address] GLOMERULAR FILTRATION RATE ML/MIN/1.73 SQ M.PREDICTED 107.0 mL/min/1.73m*2 Normal >60.0 [facility] Comment on above: Result Comment: The [facility]???s estimated glomerular filtration rate (eGFR) [...] of individuals. Performed By: #### L [id number] ####[facility] (BEAKER)[address] [place] [address] Glucose [Mass/Vol] 161 mg/dL High 70-100 [facility] Comment on above: Performed By: #### L [id number] ####[facility] ([facility])[address] [facility] [place] [address] Potassium [Moles/Vol] 4.0 mmol/L Normal 3.5-5.1 [facility] Comment on above: Performed By: #### L [id number] ####[facility] ([facility])[address] [place] [address] Protein [Mass/Vol] 6.3 g/dL Normal 6.0-8.3 [facility] Comment on above: Performed By: #### L [id number] ####[facility] ([facility])[address] [place] [address] Sodium [Moles/Vol] 134 mmol/L Low 136-145 [facility] Comment on above: Performed By: #### L [id number] ####[facility] ([facility])[address] [place] [address] Urea nitrogen [Mass/Vol] 14 mg/dL Normal 7-25 [facility] Comment on above: Performed By: #### L [id number] ####[facility] ([facility])[address] [place] [address] UREA NITROGEN/CREATININE (MASS RATIO) IN SER/PLAS 17.1 Normal [facility] Comment on above: Performed By: #### L [id number] ####[facility] ([facility])[address] [place] [address] CONSULTon 06-22-2023 CONSULT Normal [facility] MAGNESIUMon 06-22-2023 Magnesium [Mass/Vol] 1.8 mg/dL Low 1.9-2.7 [facility] Comment on above: Performed By: #### L [id number] ####[facility] ([facility])[address] [place] [address] PROTIME-INRon 06-22-2023 INR IN PPP BY COAGULATION ASSAY 1.05 Normal 0.90-1.10 [facility] Comment on above: Result Comment: [...] CHEST 1995;[id number]. Performed By: #### L [id number] ####[facility] ([facility])[address] [place] [address] PROTHROMBIN TIME (PT) IN PPP BY COAGULATION ASSAY 13.7 Seconds Normal 12.3-14.8 [facility] Comment on above: Performed By: #### L [id number] ####[facility] ([facility])[address] [place] [address] 30on 06-21-2023 30 Normal [facility] 30 Normal [facility] 30 The patient is Moder ately Unstable - Medium risk of patient condition declining or worsening The patient's goals for the shift include COMFORT The clinical goals for the shift include VSS Normal [facility] 30 Normal [facility] ANESon 06-21-2023 ANES Normal [facility] B-TYPE NATRIURETIC PEPTIDEon 06-21-2023 Natriuretic peptide B (Bld) [Mass/Vol] 147 pg/mL High 0-100 [facility] Comment on above: Performed By: #### L [id number] ####[facility] [place] [address] BLOOD CULTUREon 06-21-2023 Bacteria identified Cx Nom (Bld) No growth at 5 days Normal [facility] Comment on above: Order Comment: From a different site than #1. Performed By: #### L [id number] ####[facility] ([facility])[address] [place] [address] C-REACTIVE PROTEINon 024 C REACTIVE PROTEIN (MG/L) IN SER/PLAS 23.3 mg/L High 0.0-7.0 [facility] Comment on above: Performed By: #### L [id number] ####[facility] ([facility])[address] [place] [address] CBC WITH AUTO DIFFERENTIALon 06-21-2023 Basophils (Bld) [#/Vol] 0.04 10*3/uL Normal 0.00-0.20 [facility] Comment on above: Performed By: #### L [id number] ####[facility] ([facility])[address] [place] [address] Basophils/100 WBC (Bld) 0.4 % Normal 0.0-1.0 [facility] Comment on above: Performed By: #### L [id number] ####[facility] ([facility])[address] [place] [address] Eosinophils (Bld) [#/Vol] 0.24 10*3/uL Normal 0.00-0.50 [facility] Comment on above: Performed By: #### L [id number] ####[facility] ([facility])[address] [place] [address] Eosinophils/100 WBC (Bld) 2.7 % Normal 0.0-6.0 [facility] Comment on above: Performed By: #### L [id number] ####[facility] ([facility] [place] [address] Erythrocyte distribution width (RBC) [Ratio] 16.2 % High 11.5-15.0 [facility] Comment on above: Performed By: #### L [id number] ####[facility] ([facility] [place] [address] ERYTHROCYTE MEAN CORPUSCULAR HEMOGLOBIN CONCENTRATION (G/DL) BY AUTOMATED 33.1 g/dL Normal 32.0-35.0 [facility] Comment on above: Performed By: #### L [id number] ####[facility] ([facility])[address] [place] [address] Hematocrit (Bld) [Volume fraction] 35.6 % Low 39.0-55.0 [facility] Comment on above: Performed By: #### L [id number] ####[facility] ([facility])[address] [place] [address] Hemoglobin (Bld) [Mass/Vol] 11.8 g/dL Low 13.0-17.0 [facility] Comment on above: Performed By: #### L [id number] ####[facility] ([facility] [place] [address] Immature granulocytes (Bld) [#/Vol] 0.03 10*3/uL Normal 0.00-0.20 [facility] Comment on above: Performed By: #### L [id number] ####[facility] ([facility])[address] [place] [address] Immature granulocytes/100 WBC (Bld) 0.3 % Normal 0.0-1.0 [facility] Comment on above: Performed By: #### L [id number] ####[facility] ([facility])[address] [place] [address] Lymphocytes (Bld) [#/Vol] 1.23 10*3/uL Normal 1.20-4.00 [facility] Comment on above: Performed By: #### L [id number] ####[facility] ([facility])[address] [place] [address] Lymphocytes/100 WBC (Bld) 13.7 % Low 20.0-45.0 [facility] Comment on above: Performed By: #### L [id number] ####[facility] ([facility])[address] [place] [address] MCH (RBC) [Entitic mass] 29.4 pg Normal 27.0-33.0 [facility] Comment on above: Performed By: #### L [id number] ####[facility] ([facility])[address] [place] [address] MCV (RBC) [Entitic vol] 88.6 fL Normal 82.0-98.0 [facility] Comment on above: Performed By: #### L [id number] ####[facility] ([facility])[address] [place] [address] Monocytes (Bld) [#/Vol] 0.52 10*3/uL Normal 0.10-1.00 [facility] Comment on above: Performed By: #### L [id number] ####[facility] ([facility])[address] [place] [address] Monocytes/100 WBC (Bld) 5.8 % Normal 5.0-12.0 [facility] Comment on above: Performed By: #### L [id number] ####[facility] ([facility])[address] [place] [address] Neutrophils (Bld) [#/Vol] 6.92 10*3/uL Normal 1.60-7.60 [facility] Comment on above: Performed By: #### L [id number] ####[facility] ([facility])[address] [place] [address] Neutrophils/100 WBC (Bld) 77.1 % High 40.0-72.0 [facility] Comment on above: Performed By: #### L [id number] ####[facility] ([facility])[address] [place] [address] NRBC (PER 100 WBCS) BY AUTOMATED COUNT 0.0 % Normal 0 [facility] Comment on above: Performed By: #### L [id number] ####[facility] ([facility])[address] [place] [address] PLATELETS (10*3/UL) IN BLOOD AUTOMATED COUNT 109 10*3/uL Low 150-400 [facility] Comment on above: Performed By: #### L [id number] ####[facility] ([facility])[address] [place] [address] RBC (Bld) [#/Vol] 4.02 10*6/uL Low 4.20-5.70 [facility] Comment on above: Performed By: #### L [id number] ####[facility] ([facility])[address] [address] WBC (Bld) [#/Vol] 8.98 10*3/uL Normal 4.00-10.60 [facility] Comment on above: Performed By: #### L [id number] ####[facility] ([facility])[address] [place] [address] COMPREHENSIVE METABOLIC PANE Braulio 06-21-2023 Albumin [Mass/Vol] 4.0 g/dL Normal 3.5-5.7 [facility] Comment on above: Performed By: #### L [id number] ####[facility] ([facility])[address] [place] [address] ALP [Catalytic activity/Vol] 47 U/L Normal 34-104 [facility] Comment on above: Performed By: #### L [id number] ####[facility] ([facility])[address] [place] [address] ALT [Catalytic activity/Vol] 14 U/L Normal 7-52 [facility] Comment on above: Performed By: #### L [id number] ####[facility] ([facility])[address] [place] [address] Anion gap [Moles/Vol] 11 mmol/L Normal 7-20 [facility] Comment on above: Performed By: #### L [id number] ####[facility] ([facility])[address] [place] [address] AST [Catalytic activity/Vol] 11 U/L Low 13-39 [facility] Comment on above: Performed By: #### L [id number] ####[facility] ([facility])[address] [place] [address] Bilirubin [Mass/Vol] 1.1 mg/dL High 0.3-1.0 [facility] Comment on above: Performed By: #### L [id number] ####[facility] ([facility])[address] [place] [address] Calcium [Mass/Vol] 8.9 mg/dL Normal 8.6-10.3 [facility] Comment on above: Performed By: #### L [id number] ####[facility] ([facility] [place] [address] Chloride [Moles/Vol] 100 mmol/L Normal 98-107 [facility] Comment on above: Performed By: #### L [id number] ####[facility] ([facility])[address] [place] [address] CO2 [Moles/Vol] 28 mmol/L Normal 21-31 [facility] Comment on above: Performed By: #### L [id number] ####[facility] ([facility])[address] [place] [address] Creatinine [Mass/Vol] 0.83 mg/dL Normal 0.70-1.30 [facility] Comment on above: Performed By: #### L [id number] ####[facility] ([facility] [place] [address] GLOMERULAR FILTRATION RATE ML/MIN/1.73 SQ M.PREDICTED 106.6 mL/min/1.73m*2 Normal >60.0 [facility] Comment on above: Result Comment: The [facility]???s estimated glomerular filtration rate (eGFR) [...] of individuals. Performed By: #### L [id number] ####[facility] ([facility])[address] [place] [address] Glucose [Mass/Vol] 101 mg/dL High 70-100 [facility] Comment on above: Performed By: #### L [id number] ####[facility] ([facility])[address] [place] [address] Potassium [Moles/Vol] 4.2 mmol/L Normal 3.5-5.1 [facility] Comment on above: Performed By: #### L [id number] ####[facility] ([facility])[address] [place] [address] Protein [Mass/Vol] 6.1 g/dL Normal 6.0-8.3 [facility] Comment on above: Performed By: #### L [id number] ####[facility] ([facility])[address] [place] [address] Sodium [Moles/Vol] 135 mmol/L Low 136-145 [facility] Comment on above: Performed By: #### L [id number] ####[facility] ([facility])[address] [place] [address] Urea nitrogen [Mass/Vol] 14 mg/dL Normal 7-25 [facility] Comment on above: Performed By: #### L [id number] ####[facility] ([facility])[address] [place] [address] UREA NITROGEN/CREATININE (MASS RATIO) IN SER/PLAS 16.9 Normal [facility] Comment on above: Performed By: #### L [id number] ####[facility] ([facility])[address] [place] [address] CONSULTon 06-21-2023 CONSULT Normal [facility] CONSULT Normal [facility] CONSULT Normal [facility] CT ABDOMEN PELVIS W IV CONTR Kyle 06-21-2023 CT ABDOMEN PELVIS W IV CONTRAST Invalid Interpretation Code [facility] CT CHEST W IV CONTRASTon CT CHEST W IV CONTRAST Invalid Interpretation Code [facility] CT HEAD WO IV CONTRASTon CT HEAD WO IV CONTRAST Invalid Interpretation Code [facility] CT SOFT TISSUE NECK WO IV CO NTRASTon 06-21-2023 CT SOFT TISSUE NECK WO IV CONTRAST Invalid Interpretation Code [facility] HPon 06-21-2023 HP Normal [facility] HP Normal [facility] IRON AND TIBCon 06-21-2023 IRON (UG/DL) IN SER/PLAS 54 ug/dL Normal 50-212 [facility] Comment on above: Performed By: #### L [id number] ####[facility] ([facility])[address] [place] [address] IRON BINDING CAPACITY (UG/DL) IN SER/PLAS 304 ug/dL Normal 250-450 [facility] Comment on above: Performed By: #### L [id number] ####[facility] ([facility])[address] [place] [address] IRON BINDING CAPACITY.UNSATURATED (UG/DL) IN SER/PLAS 250.0 ug/dL Normal 155.0-355.0 [facility] Comment on above: Performed By: #### L [id number] ####[facility] ([facility])[address] [place] [address] IRON SATURATION (%) IN SER/PLAS 18 % Low 20-50 [facility] Comment on above: Performed By: #### L [id number] ####[facility] ([facility])[address] [place] [address] MR LUMBAR SPINE W AND WO CON TRASTon 06-21-2023 MR LUMBAR SPINE W AND WO CONTRAST Invalid Interpretation Code [facility] NURSNOTEon 06-21-2023 NURSNOTE Normal [facility] SEDIMENTATION RATEon 024 SEDIMENTATION RATE, ERYTHROCYTE 28 mm/hr High <=10 [facility] Comment on above: Performed By: #### L [id number] ####[facility] ([facility])[address] [place] [address] URINALYSIS WITH REFLEX CULTU REon 06-21-2023 BILIRUBIN, TOTAL PRESENCE IN URINE Negative Normal Negative [facility] Comment on above: Order Comment: Micro scopics not performed on urines with negative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 633185, 8538269 ####[address] [address] Monocytes/100 WBC (Bld) 6.8 % Normal 4.0-14.0 [facility] Comment on above: Order Comment: Order Added by Wilbert Expert. Performed By: #### 2 415075, 6676200 ####[address] [address] Monocytes/Leukocytes Auto (Bld) [Pure # fraction] 0.6 E9/L Normal 0.2-1.0 [facility] Comment on above: Order Comment: Order Added by Wilbert Expert. Performed By: #### 2 783383, 6803631 ####[address] [address] Neutrophils/100 WBC (Bld) 74.1 % Normal 36.0-75.0 [facility] Comment on above: Order Comment: Order Added by Discern Expert. Performed By: #### 2 793251, 1105489 ####[facility] [address] [place] [address] Neutrophils/Leukocyt es Auto (Bld) [Pure # fraction] 6.6 E9/L Normal 2.0-7.5 [facility] Comment on above: Order Comment: Order Added by Discern Expert. Performed By: #### 2 581226, 5225103 ####[address] [address] CBC w/ Auto Diffon Erythrocyte distribution width (RBC) [Ratio] 13.6 % Normal 10.9-14.2 [facility] Comment on above: Performed By: #### 2 167688, 3976958 ####[address] [address] Hematocrit (Bld) [Volume fraction] 40.5 % Normal 37.7-49.0 [facility] Comment on above: Performed By: #### 2 021430, 9417921 ####[address] [address] Hemoglobin (Bld) [Mass/Vol] 13.9 g/dL Normal 13.5-17.5 [facility] Comment on above: Performed By: #### 2 851133, 9282259 ####[address] [address] MCH (RBC) [Entitic mass] 28.9 pg Normal 27.0-34.0 [facility] Comment on above: Performed By: #### 2 312515, 8706247 ####[facility] [address] [place] [address] MCHC (RBC) [Mass/Vol] 34.3 g/dL Normal 31.4-36.0 [facility] Comment on above: Performed By: #### 2 428968, 5614572 ####[address] [address] MCV (RBC) [Entitic vol] 84.2 fL Normal 80.0-100.0 [facility] Comment on above: Performed By: #### 2 837705, 2352221 ####[address] [address] Platelet mean volume (Bld) [Entitic vol] 7.7 fL Normal 6.4-10.8 [facility] Comment on above: Performed By: #### 2 828765, 7241662 ####[address] [address] Platelets (Bld) [#/Vol] 244.0 E9/L Normal 150.0-500.0 [facility] Comment on above: Performed By: #### 2 219058, 3901131 ####[address] [address] RBC (Bld) [#/Vol] 4.8 E12/L Normal 4.3-5.9 [facility] Comment on above: Performed By: #### 2 741184, 6741103 ####[address] [address] WBC corrected for nucl RBC Auto (Bld) [#/Vol] 8.9 E9/L Normal 4.0-11.0 [facility] Comment on above: Performed By: #### 2 890643, 5312775 ####[address] [address] Consent for Treatmenton 01-31 Consent for Treatment [id number]#1.00TIFF Normal [facility] HEMATOLOGYOrdered By: SYSTEM SYSTEM on 02-26-2023 [...] [place] [facility] Physician Orderon 02-26-2023 Physician Order [id number]#1.00TIFF Normal [facility] CHEMISTRYOrdered By: SYSTEM SYSTEM on 02-25-2023 CRP [Mass/Vol] 6.7 mg/dL High <=1.9mg/dL [facility] Remis ol CRPon 02-25-2023 CRP [Mass/Vol] 6.7 mg/dL High <=1.9 [facility] Comment on above: Performed By: #### 2 650489 ####[facility] [address] [place] [address] Consent for Treatmenton 01-31 Consent for Treatment [id number]#1.00TIFF Normal [facility] ED Note-Physicianon 02-26-20 ED Note-Physician [id number]#1.00TIFF Normal [facility] Lab Miscellaneous-LCon 02-25 Test Code 752923 Invalid Interpretation Code [facility] Comment on above: Performed By: #### 1 [id number] ####[facility] [address] [place] [address] Test Name Interleukin-6 Invalid Interpretation Code [facility] Comment on above: Performed By: #### 1 [id number] ####[facility] [address] [place] [address] Physician Orderon 02-25-2023 Physician Order [id number]#1.00TIFF Normal [facility] RAD - MISCon 02-25-2023 RAD - MISC [id number]#1.00TIFF Normal [facility] Reference Laboratory Testing Ordered By: Elysia Oseguera on 02-25-2023 Sodium [Moles/Vol] 826581 mmol/L Invalid Interpretation Code [facility] Test Name Interleukin-6 Invalid Interpretation Code [facility] Consultation Noteon 02-20-20 Consultation Note [id number]#1.00TIFF Normal [facility] Operative Reporton 3 Operative Report [id number]#1.00TIFF Normal [facility] Consultation Noteon 01-30-20 Consultation Note [id number]#1.00TIFF [facility] RAD - MRI Reporton 3 RAD - MRI Report [id number]#1.00TIFF [facility] RAD - MISCon 01-16-2023 RAD - MISC [id number]#1.00TIFF Normal [facility] RAD - MISC [id number]#1.00TIFF [facility] Lab Reportson 01-14-2023 Lab Reports [id number]#1.00TIFF [facility] Lab Reports [id number]#1.00TIFF [facility] Retail - Clinical Noteon Retail - Clinical Note [id number]#1.00TIFF [facility] Ambulatory Visit Summaryon 1 Ambulatory Visit Summary [...] Depression Obesity shoulder pain sleep disorder Normal [facility] XR ankle LT min 3V*on 2022 XR ankle LT min 3V* [facility] Other XR ankle LT min 3V* [facility] Other XR ankle LT min 3V* 1111 [facility] Other XR ankle LT min 3V* [place] [address] [employer] Other XR ankle LT min 3V* XRay Report [facility] [employer] Other XR ankle LT min 3V* Signed [employer] Other XR ankle LT min 3V* Patient: Nehal Baig MR#: [id number] [employer] Other XR ankle LT min 3V* 8 [employer] Other XR ankle LT min 3V* : 1970 Acct:[id number] [employer] Other XR ankle LT min 3V* Age/Sex: 52 / M ADM Date: 12/16/22 [facility] Other XR ankle LT min 3V* Loc: XDUCLY Room: pe: REG CLI [employer] Other XR ankle LT min 3V* Attending Dr: Kelly MALONEY [employer] Other XR ankle LT min 3V* Copies to: HAIDER Larson [employer] Other XR ankle LT min 3V* Ordering Provider: HAIDER Rehman [employer] Other XR ankle LT min 3V* Date of Service: 12/16/22 [employer] Other XR ankle LT min 3V* 93996) XR/XR ankle LT min 3V*: LEFT ANKLE PAIN [employer] Other XR ankle LT min 3V* XR ankle LT min 3V* 12/16/2022 10:31 AM [facility] Other XR ankle LT min 3V* SIGNS AND SYMPTOMS: Pain and swelling of the posterior left ankle [employer] Other XR ankle LT min 3V* PROTOCOL: Frontal, lateral, and oblique radiographs of the left ankle [facility] Other XR ankle LT min 3V* COMPARISON: None [facility] Other XR ankle LT min 3V* FINDINGS: [employer] Other XR ankle LT min 3V* The ankle mortise is preserved. There is no evidence of fracture or dislocation. There is Achilles [facility] Other XR ankle LT min 3V* surface calcaneal spurring. There is soft tissue swelling diffusely which is nonspecific. [facility] Other XR ankle LT min 3V* X R/XR ankle LT min 3V* [facility] Other XR ankle LT min 3V* IMPRESSION: [employer] Other XR ankle LT min 3V* No fracture. [employer] Other XR ankle LT min 3V* Diffuse soft tissue swelling. [facility] Other XR ankle LT min 3V* There is Achilles castano rface calcaneal spurring. [facility] Other XR ankle LT min 3V* Impression dictated by: Nehal Horner M.D.12/16/2022 10:42 AM [employer] Other XR ankle LT min 3V* Dictation Location: [facility]--13 [facility] Other XR ankle LT min 3V* Transcribed By: MARLO 12/16/22 1042 [facility] Other XR ankle LT min 3V* Dictated By: Nehal Horner II, MD 12/16/22 104 [facility] Other XR ankle LT min 3V* Signed By: [facility] Other XR ankle LT min 3V* 12/16/22 1042 No rt [employer] Other US KIDNEY/BLADDERon 05-26-19 23 US KIDNEY/BLADDER * * *Final Report* * * DATE OF EXAM: May 26 2022 2:34PM [facility] 1055 - US KIDNEY/BLADDER / PROCEDURE [...] No evidence of renal calculus or hydronephrosis. Cna Gna: [facility]NR Transcribe Date/Time: May 26 2022 2:43P Dictated by : BOB RODRIGUEZ MD This examination was interpreted and the report reviewed and electronically signed by: BOB RODRIGUEZ MD on May 27 2022 5:50AM EST [id number] Normal [facility] MRI CSPINE WO CONon 04-23-19 23 MRI [...] by: KINGSLEY HERRERA Date: 2022-04-23 06:50 Normal [facility] XR FOREIGN BODY EYEon 2022 XR FOREIGN BODY EYE EXAMINATION: XR FORE IGN BODY EYE HISTORY: Foreign body in eye COMPARISON: No relevant comparison available. FINDINGS: ORBITS: Negative for a metallic foreign body. OTHER: Negative. IMPRESSION: 1. No metallic foreign body within the orbits. Electronically authenticated by: JAYY GIVENS Date: 2022-04-20 13:52 Normal [facility] ECHOon 09-19-2021 [facility] No Panel Informationon 09-19 [facility] US CAROTID BILATon [address] [facility] [address] CHEST WO IVCONon 09-19-[address] CHEST WO IVCON * * *Final Report* * * DATE OF EXAM: Sep 18 2021 12:09PM [facility] 0541 - CT CHEST WO [...] No abnormality in the imaged upper abdomen. Compensation Adjuster (topogram) images: No additional findings. IMPRESSION: Stable pulmonary nodules including the 7 mm nodule along the minor fissure. Transcribed Using Voice Recognition Transcribe Date/Time: Sep 20 2021 2:25P Dictated by: POLY JACKSON MD This examination was interpreted and the report reviewed and electronically signed by: POLY JACKSON MD on Sep 20 2021 2:33PM EST [id number] Normal [facility] BLOOD BANKOrdered By: Darcie Medina on 08-23-2021 [...] Comment: Jes lisandra Meter POC Device SN [id number] Invalid Interpretation Code [facility] [place] P[place] Subsection POC User ID [id number] Invalid Interpretation Code [facility] [...] (U) Yellow (08/23/21 7:36 AM) Normal Yellow FT UA Auto SS Epithelial cells.squamous LM.HPF (Urine sed) [#/Area] 3-4 /HPF Normal 0-2/HPF FT UA Auto SS Glucose Test strip (U) [Mass/Vol] Negative (08/23/21 7:36 AM) Normal Negative FT UA Auto SS Hemoglobin Ql (U) Negative (08/23/21 7:36 AM) Normal Negative [facility] UA Auto SS Ketones (U) [Mass/Vol] Negative (08/23/21 7:36 AM) Normal Negative FT UA Auto SS [place].plasma/Lithi um.RBC (Bld) [Mass ratio] 0-3 /HPF Normal 0-3/HPF [facility] UA Auto SS Mucus Ql (Urine sed) 1+ (08/23/21 7:36 AM) Normal FT UA Auto SS Nitrite Ql (U) Negative (08/23/21 7:36 AM) Normal Negative [facility] UA Auto SS pH (U) 6.0 *NA* (08/23/21 7:36 AM) Invalid Interpretation Code 5.0 - 9.0 [facility] [place] UA Auto SS Protein (U) [Mass/Vol] Negative (08/23/21 7:36 AM) Normal Negative [facility] UA Auto SS Specific gravity (U) [Rel density] 1.025 *NA* (08/23/21 7:36 AM) Invalid Interpretation Code 1.005 - 1.030 [facility] [place] UA Auto SS UA Spec Desc Barr[place] (08/23/21 7:36 AM) Normal [facility] UA Auto SS Urobilinogen Qn (U) 1.3628065 {Sean'U}/dL Normal 0.0 - 1.0 EU/dL FT UA Auto SS WBC Auto Ql (U) Negative (08/23/21 7:36 AM) Normal Negative [facility] [place] UA Auto SS WBC LM.HPF (Urine sed) [#/Area] 0-5 /HPF Normal 0-5/HPF [facility] [place] UA Auto SS BLOOD BANKOrdered By: Kat Salcedo on 08-08-2021 [...] rate/Area] mL/min/1.73 m2 Normal >=59mL/min/ 1.73 m2 FT Chem S GFR/1.73 sq M.predicted [...] AM) Normal Negative [facility] UA Auto SS [place].plasma/Lithi um.RBC (Bld) [Mass ratio] 0-3 /HPF Normal [...] [facility] UA Auto SS Urobilinogen Qn (U) 0.0419155 {Sean'U}/dL Normal 0.0 - 1.0 EU/dL [facility] UA Auto SS WBC Auto Ql (U) Negative (08/08/21 10:04 AM) Normal Negative [facility] UA Auto SS WBC LM.HPF (Urine sed) [#/Area] 0-5 /HPF Normal 0-5/HPF [facility] [place] UA Auto SS ANES POSTPROC EVALon 022 ANES POSTPROC EVAL HNO ID: [id number] Author: Lucy Flanagan MD Service: Anesthesiology Author Type: Anesthesiologist Type: Anesthesia Postprocedure Evaluation Filed: 07/31/2021 12:56 PM Note Text: POST ANESTHESIA EVALUATION NOTE : 1970 Procedure Summary Date: 07/31/21 Room / Location: [facility] Anesthesia Start: 1053 Anesthesia Stop: 1145 Procedure: COLONOSCOPY DIAGNOSTIC Diagnosis: Dark stools (OTHER) Scheduled Providers: Jayy Patel MD; Cori Ashley PAPERHANGER.HOG KILLER; Lucy Flanagan MD Responsible Provider: Lucy Flanagan [...] July 31, 2021 TIME: 12:55 PM CSN: [id number] [facility] ANES PRE-OPon 07-31-2021 ANES PRE-OP HNO ID: [id number] Author: Lucy Flanagan MD Service: Anesthesiology Author Type: Anesthesiologist Type: Anesthesia Preprocedure Evaluation Filed: 07/31/2021 9:50 AM Note Text: ANESTHESIOLOGY DAY OF SURGERY NOTE : 1970 Procedure Information Date/Time: 07/31/21 1030 Scheduled providers: Jayy Patel MD; Cori Ashley APRN.HOG KILLER; Lucy Flanagan MD Procedure: COLONOSCOPY DIAGNOSTIC Location: [facility] Estimated body mass index [...] July 31, 2021 TIME: 9:49 AM CSN: [id number] [facility] COLONOSCOPY DIAGNOSTICon [facility] HISTORY PHYSICALon HISTORY PHYSICAL HNO ID: [id number] Author: Jayy Patel MD Service: General Surgery [...] 31, 2021 TIME: 10:58 AM [facility] SURGICAL PATHOLOGYon 022 CASE REPORT [facility] Comment on above: Order Comment: Speci men Type: TISSUE SPECIMEN Ordering Facility: [facility] Address: [address] [place] [address] Result Comment: Surg [facility] Pathology Report Case: [id number] Authorizing Provider: Jayy Patel MD Collected: 07/31/2021 11:31 AM Ordering Location: [facility] Received: 07/31/2021 02:15 PM Pathologist: Luis F Quiroz MD Specimen: SIGMOID COLON POLYP Performed By: #### S #### [facility] CLIA [id number] [address] [place] [address] FINAL DIAGNOSIS [facility] Comment on above: Order Comment: Speci men Type: TISSUE SPECIMEN Ordering Facility: [facility] Address: [address] [place] [address] Result Comment: Sigm oid colon polyp, biopsy: - Tubular adenoma. JEL 08/01/2021 Performed By: #### S #### [facility] CLIA [id number] [address] [place] [address] FINAL PERFORMING LAB Normal [facility] Comment on above: Order Comment: Speci men Type: TISSUE SPECIMEN Ordering Facility: [facility] Address: [address] [place] [address] Result Comment: Diag nostic interpretation performed at [facility], [address] [place] [address] CLIA# [id number] Senior Program Manager: Nehal Cid M.D. Performed By: #### S #### [facility] CLIA [id number] [address] [place] [address] GROSS DESCRIPTION [facility] Comment on above: Order Comment: Speci men Type: TISSUE SPECIMEN Ordering Facility: [facility] Address: [address] [place] [address] Result Comment: A. S IGMOID COLON POLYP. Received in formalin are multiple pieces of kaufman, soft tissue aggregating to 1.8 x 0.3 x 0.2 cm. Totally submitted in one cassette. SS July 31, 2021 7:11 PM Gross examination performed at [facility], [address] [place] [address] Performed By: #### S #### [facility] [id number] [address] [place] [address] [place] [address] CHEST WO IVCONon 02-14-20 21 Radiology Result ACTIONABLE Abnormal [facility] XR Hand - bilateral PA and L ateral and Obliqueon 12-12-2020 IMPRESSION: Mild degenerative changes, no acute findings. Cna Gna: GREGORY Transcribe Date/Time: Dec 12 2020 3:47P Dictated by : DAJA GOLDSTEIN MD This examination was interpreted and the report reviewed and electronically signed by: DAJA GOLDSTEIN MD on Dec 12 2020 3:47PM [facility] DIVISION OF RADIOLOGY * * *Final Report* [...] other significant abnormality. DIVISION OF RADIOLOGY Provider, [facility] - 12/12/2020 * * *Final Report* * [...] IMPRESSION: Mild degenerative changes, no acute findings. Cna Gna: PSCB Transcribe Date/Time: Dec 12 2020 3:47P Dictated by : DAJA GOLDSTEIN MD This examination was interpreted and the report reviewed and electronically signed by: DAJA GOLDSTEIN MD on Dec 12 2020 3:47PM EST [facility] Radiology Study observation (narrative) [facility] XR Hand - bilateral PA and L ateral and ObliqueOrdered By: Ccf Provider on 12-12-2020 [facility] Basic Metab w/rfx MGon 08-02 (cont.) Normal [facility] Comment on above: Result Comment: Aver age GFR for 40-49 years old: 99 mL/min/1.73sq m Chronic Kidney Disease: <60 mL/min/1.73sq m Kidney failure: <15 mL/min/1.73sq m eGFR calculated using average adult body mass. Additional eGFR calculator available at: http://www.SageMetrics/multiple_crcl_2012.htm Performed By: #### C BC, BMPX ####[employer] [place] [address] Lab Director: Nate Stafford MD Anion gap [Moles/Vol] 11 mmol/L Normal 9-17 [facility] Comment on above: Performed By: #### C BC, BMPX ####[facility] [address] [place], [place] [phone] Lab Director: Nate Stafford MD Calcium [Mass/Vol] 8.5 mg/dL Low 8.6-10.4 [facility] Comment on above: Performed By: #### C BC, BMPX ####[employer] [address] [place], [place] [phone] lab Director: Nate Stafford MD Chloride [Moles/Vol] 101 mmol/L Normal 98-107 [facility] Comment on above: Performed By: #### C BC, BMPX ####[facility] [address] [place], [place] [phone] Director: Nate Stafford MD CO2 [Moles/Vol] 23 mmol/L Normal 20-31 [facility] Comment on above: Performed By: #### C BC, BMPX ####[facility] [address] [place], [place] [phone] Director: Nate Stafford MD Creatinine [Mass/Vol] 0.62 mg/dL Low 0.70-1.20 [facility] Comment on above: Performed By: #### C BC, BMPX ####[facility] [address] [place], [place] [phone] Director: Nate Stafford MD GFR, Amer >60 Normal >60 [facility] Comment on above: Performed By: #### C BC, BMPX ####[facility] [address] [place] [address] [phone] Director: Nate Stafford MD GFR,non Amer >60 Normal >60 [facility] Comment on above: Performed By: #### C BC, BMPX ####[facility] [address] [place], [place] [phone] Director: Nate Stafford MD Glucose [Mass/Vol] 120 mg/dL High 70-99 [facility] Comment on above: Performed By: #### C BC, BMPX ####[facility] [address] [place], [place] [phone] Director: Nate Stafford MD Potassium [Moles/Vol] 4.3 mmol/L Normal 3.7-5.3 [facility] Comment on above: Performed By: #### C BC, BMPX ####[facility] [address] [place], [place] [phone] Director: Nate Stafford MD Sodium [Moles/Vol] 135 mmol/L Normal 135-144 [facility] Comment on above: Performed By: #### C BC, BMPX ####[facility] [address] [place] [address] Lab Director: Nate Stafford MD Urea nitrogen [Mass/Vol] 14 mg/dL Normal 6-20 [facility] Comment on above: Performed By: #### C BC, BMPX ####[facility] [address] [place] [address] Lab Director: Nate Stafford MD BUN/CRE Ratio NOT REPORTED Normal -20 [facility] Comment on above: Performed By: #### C BC, BMPX ####[facility] [address] [place] [address] Lab Director: Nate Stafford MD Staging: NOT REPORTED Normal [facility] Comment on above: Performed By: #### C BC, BMPX ####[facility] [address] [place] [address] Lab Director: Nate Stafford MD Basic Metabolic Panel w/ Ref johnny to MGOrdered By: Halina Pathak on 08-02-2020 Anion gap [Moles/Vol] 11 mmol/L 9 - 17 mmol/L [employer] Phone: Calcium [Mass/Vol] 8.5 mg/dL Low 8.6 - 10. 4 mg/dL [employer] Phone: Chloride [Moles/Vol] 101 mmol/L 98 - 10 7 mmol/L [employer] Phone: CO2 [Moles/Vol] 23 mmol/L 20 - 31 mmol/L [employer] Phone: Creatinine [Mass/Vol] 0.62 mg/dL Low 0.70 - 1.20 mg/dL [employer] Phone: GFR >60 >60 mL/min [employer] Phone: GFR Non- >60 >60 mL/min [employer] Phone: GFR/1.73 sq M.predicted MDRD (S/P/Bld) [Vol rate/Area] [employer] Phone: Comment on above: Average GFR for 40-4 9 years old: 99 mL/min/1.73sq m Chronic Kidney Disease: <60 mL/min/1.73sq m Kidney failure: <15 mL/min/1.73sq m eGFR calculated using average adult body mass. Additional eGFR calculator available at: http://www.SageMetrics/multiple_crcl_2012.htm GFR/1.73 sq M.predicted MDRD (S/P/Bld) [Vol rate/Area] NOT REPORTED [employer] Phone: Glucose [Mass/Vol] 120 mg/dL High 70 - 99 mg/dL [employer] Phone: Interpretation and review of laboratory results Abnormal [employer] Phone: Potassium [Moles/Vol] 4.3 mmol/L 3.7 - 5.3 mmol/L [employer] Phone: Sodium [Moles/Vol] 135 mmol/L 135 - 144 mmol/L [employer] Phone: Urea nitrogen (BldV) [Mass/Vol] 14 mg/dL 6 - 20 mg/dL [employer] Phone: Urea nitrogen/Creatinine (Bld) [Mass ratio] NOT REPORTED [employer] Phone: CBCon 08-02-2020 Erythrocyte distribution width (RBC) [Ratio] 13.0 % Normal 11.8-14.4 [facility] Comment on above: Performed By: #### C BC, BMPX ####[facility] [address] [place] [address] [facility] Director: Nate Stafford MD Hematocrit (Bld) [Volume fraction] 41.8 % Normal 40.7-50.3 [facility] Comment on above: Performed By: #### C BC, BMPX ####[facility] [address] [place] [address] Lab Director: Nate Stafford MD Hemoglobin (Bld) [Mass/Vol] 13.8 g/dL Normal 13.0-17.0 [facility] Comment on above: Performed By: #### C BC, BMPX ####[facility] [address] [place] [address] lab Director: Nate Stafford MD MCH (RBC) [Entitic mass] 29.3 pg Normal 25.2-33.5 [facility] Comment on above: Performed By: #### C BC, BMPX ####[address] [address] lab Director: Nate Stafford MD MCHC (RBC) [Mass/Vol] 33.0 g/dL Normal 28.4-34.8 [facility] Comment on above: Performed By: #### C BC, BMPX ####[address] [address] lab Director: Nate Stafford MD MCV (RBC) [Entitic vol] 88.7 fL Normal 82.6-102.9 [facility] Comment on above: Performed By: #### C BC, BMPX ####[facility] [address] [place] [address] lab Director: Nate Stafford MD NRBC Automated 0.0 per 100 WBC Normal 0.0 [facility] Comment on above: Performed By: #### C BC, BMPX ####[facility] [address] [place] [address] lab Director: Nate Stafford MD Platelet mean volume (Bld) [Entitic vol] 10.9 fL Normal 8.1-13.5 [facility] Comment on above: Performed By: #### C BC, BMPX ####[facility] [address] [place] [address] Lab Director: Nate Stafford MD Platelets (Bld) [#/Vol] 221 10*3/uL Normal 138-453 [facility] Comment on above: Performed By: #### C BC, BMPX ####[facility] [address] [place], [place] [phone] Director: Nate Stafford MD RBC (Bld) [#/Vol] 4.71 10*6/uL Normal 4.21-5.77 [facility] Comment on above: Performed By: #### C BC, BMPX ####[facility] [address] [place], [place] [phone] Director: Nate Stafford MD WBC (Bld) [#/Vol] 10.6 10*3/uL Normal 3.5-11.3 [facility] Comment on above: Performed By: #### C BC, BMPX ####[facility] [address] [place] [address] Lab Director: Nate Stafford MD CBCOrdered By: Halina Pathak on 08-02-2020 Hematocrit (Bld) [Volume fraction] 41.8 % 40.7 - 50.3 % [employer] Phone: Hemoglobin.gastroint estinal spec 1 Ql (Stl) 13.8 g/dL 13.0 - 17.0 g/dL [employer] Phone: MCH (RBC) [Entitic mass] 29.3 pg 25.2 - 33.5 pg [employer] Phone: MCHC (RBC) [Mass/Vol] 33.0 g/dL 28.4 - 34.8 g/dL [employer] Phone: MCV (RBC) [Entitic vol] 88.7 fL 82.6 - 102.9 fL [employer] Phone: NRBC Automated 0.0 0.0 per 100 WBC [employer] Phone: Platelet distribution width (Bld) [Ratio] 13.0 % 11.8 - 14.4 % [employer] Phone: Platelet mean volume (Bld) [Entitic vol] 10.9 fL 8.1 - 13.5 fL [employer] Phone: Platelets (Bld) [#/Vol] 221 10*3/uL [employer] Phone: RBC (Bld) [#/Vol] 4.71 10*6/uL 4.21 - 5.7 7 m/uL [employer] Phone: WBC (Bld) [#/Vol] 10.6 10*3/uL [employer] Phone: Trauma Profileon 08-02-2020 (cont.) Normal [facility] Comment on above: Result Comment: Aver age GFR for 40-49 years old: 99 mL/min/1.73sq m Chronic Kidney Disease: <60 mL/min/1.73sq m Kidney failure: <15 mL/min/1.73sq m eGFR calculated using average adult body mass. Additional eGFR calculator available at: http://www.[employer]/multiple_crcl_2011.htm Performed By: #### E RTISABEL GIBBS ####[employer] [place], [place] [phone] Lab Director: Nate Stafford MD Anion gap [Moles/Vol] 10 mmol/L Normal 9-17 [facility] Comment on above: Performed By: #### E ISABEL GRUBBS ####[employer] [place], [place] [phone] Lab Director: Nate Stafford MD Chloride [Moles/Vol] 100 mmol/L Normal 98-107 [facility] Comment on above: Performed By: #### E RTPF, TROPI ####[facility] [address] [place] [address] Lab Director: Nate Stafford MD CO2 [Moles/Vol] 24 mmol/L Normal 20-31 [facility] Comment on above: Performed By: #### E RTPF, TROPI ####[facility] [address] [place], [place] [phone] Director: Nate Stafford MD Creatinine [Mass/Vol] 0.71 mg/dL Normal 0.70-1.20 [facility] Comment on above: Performed By: #### E RTPF, TROPI ####[facility] [address] [place], [place] [phone] Director: Nate Stafford MD Ethanol [Mass/Vol] mg/dL Normal <10 [facility] Comment on above: Performed By: #### E RTPF, TROPI ####[facility] [address] [place] [address] Lab Director: Nate Stafford MD Ethanol percent <0.010 Normal <0.010 [facility] Comment on above: Performed By: #### E RTPF, TROPI ####[facility] [address] [place] [address] Lab Director: Nate Stafford MD GFR, Amer >60 Normal >60 [facility] Comment on above: Performed By: #### E RTPF, TROPI ####[facility] [address] [place] [address] Lab Director: Nate Stafford MD GFR,non Amer >60 Normal >60 [facility] Comment on above: Performed By: #### E RTPF, TROPI ####[facility] [address] [place] [address] Lab Director: Nate Stafford MD Glucose [Mass/Vol] 109 mg/dL High 70-99 [facility] Comment on above: Performed By: #### Karissa RTBERNIE TROPI ####[facility] [address] [place], [place] [phone] Director: Nate Stafford MD Potassium [Moles/Vol] 4.2 mmol/L Normal 3.7-5.3 [facility] Comment on above: Performed By: #### Karissa RTBERNIE TROPI ####[facility] [address] [place], [place] [phone] Director: Nate Stafford MD Sodium [Moles/Vol] 134 mmol/L Low 135-144 [facility] Comment on above: Performed By: #### Karissa RTEBRNIE TROPI ####[facility] [address] [place], [place] [phone] Director: Nate Stafford MD Urea nitrogen [Mass/Vol] 15 mg/dL Normal 6-20 [facility] Comment on above: Performed By: #### Karissa GRUBBS TROPI ####[facility] [address] [place], [place] [phone] Director: Nate Stafford MD Troponinon 08-02-2020 Troponin, High Sens 6 ng/L Normal 0-22 [facility] Comment on above: Result Comment: High Sensitivity Troponin values cannot be compared with other Troponin methodologies. Patients with high levels of Biotin oral intake (i.e >5mg/day) may have falsely decreased Troponin levels. Samples collected within 8 hours of biotin intake may require additional information for diagnosis. Performed By: #### Karissa RTBERNIE TROPI ####[facility] [address] [place], [place] [phone] Director: Nate Stafford MD Type + Screenon 08-02-2020 Type + Screen Sample Expiration 08/04/2020,2359 Arm Band Number BE [id number] ABO/Rh(D) A NEGATIVE Antibody Screen NEGATIVE Normal [facility] Comment on above: Performed By: #### T YS ####[facility] [place] [address] Lab Director: Nate Stafford MD CT CERVICAL SPINE WO DELILAH Gomez 08-01-2020 CT CERVICAL SPINE WO CONTRAST EXAMINATION: [...] Johnny Smalls MD 08/01/20 Final result Normal [facility] CT CERVICAL SPINE WO CONTRAS TOrdered By: Ronnie Lund on 08-01-2020 C6-7 cervical spondy losis and degenerative disc disease. Evidence of paracervical spasm. No acute bony abnormalities are noted [employer] Phone: EXAMINATION: CT OF T HE CERVICAL [...] intact. The visualized lung apices are clear. [employer] Phone: Francisco, Mhpn Incoming R adiant Results From [employer] - 08/01/2020 7:04 PM EDT EXAMINATION: CT [...] spasm. No acute bony abnormalities are noted [employer] Work Phone: CT CHEST ABDOMEN PELVIS W [...] Elizabeth Shoemaker MD 08/01/20 Final result Normal [facility] CT CHEST ABDOMEN PELVIS W CO NTRASTOrdered [...] to Lung-RADS guidelines. Reference: Radiology. 2017; 284(1):228-43. [employer] Phone: EXAMINATION: CT OF T HE CHEST, [...] hernia. Bones/Soft Tissues: No acute osseous abnormality. [employer] Phone: Francisco, Mhpn Incoming R adiant Results From [employer] - 08/01/2020 7:19 PM EDT EXAMINATION: CT [...] to Lung-RADS guidelines. Reference: Radiology. 2017; 284(1):228-43. [employer] Phone: CT HEAD WO CONTRASTon 2020 CT [...] Jarek Fernández MD 08/01/20 Final result Normal [facility] CT Head WO ContrastOrdered B y: Ronnie Lund on 08-01-2020 1. No acute intracra nial abnormality. [employer] Phone: EXAMINATION: CT OF T HE HEAD [...] clear. SOFT TISSUES/SKULL: The calvarium is intact. [employer] Phone: [place], Mhpn Incoming R adiant Results From [employer] - 08/01/2020 7:01 PM EDT EXAMINATION: CT [...] intact. IMPRESSION: 1. No acute intracranial abnormality. [employer] Phone: CT LUMBAR SPINE TRAUMA RECON STRUCTIONon [...] Johnny Smalls MD 08/01/20 Final result Normal [facility] CT THORACIC SPINE TRAUMA REC ONSTRUCTIONon 08-01-2020 [...] Johnny Smalls MD 08/01/20 Final result Normal [facility] Drug Scr, Abuse, Uron 2020 Amphetamine(s),Ur Negative Normal NEG [facility] Comment on above: Result Comment: (Positive cutoff 1000 ng/mL) Performed By: #### U AMIC, LOUIS #### [facility] [address] [place] [address] [phone] Casing Sewer: Nate Stafford MD Barbiturate(s),Ur Negative Normal NEG [facility] Comment on above: Result Comment: (Positive cutoff 200 ng/mL) Performed By: #### U AMIC, LOUIS #### [facility] [address] [place] [address] [phone] Casing Sewer: Nate Stafford MD Benzodiazepine(s) Negative Normal NEG [facility] Comment on above: Result Comment: (Positive cutoff 200 ng/mL) Performed By: #### U AMIC, LOUIS #### [facility] [address] [place] [address] [phone] Casing Sewer: Nate Stafford MD Cannabinoid(s),Ur Negative Normal NEG [facility] Comment on above: Result Comment: (Positive cutoff 50 ng/mL) Performed By: #### U AMIC, LOUIS #### [employer] [address] [place] [address] 75850 Casing Sewer: Nate Stafford MD Cocaine Metabolite Negative Normal NEG [facility] Comment on above: Result Comment: (Positive cutoff 300 ng/mL) Performed By: #### U AMIC, LOUIS #### [facility] [address] [place] [address] [phone] Casing Sewer: Nate Stafford MD Interpretive Info Assay provides medic al screening only. The absence of expected drug(s) and/or Normal [facility] Comment on above: Result Comment: meta bolite(s) may indicate diluted or adulterated urine, limitations of testing or timing of collection. Testing for legal purposes should be confirmed by another method. To request confirmation of test result, please call the lab within 7 days of sample submission. Performed By: #### U AMIC, LOUIS #### [facility] [address] [place] [address] [phone] Casing Sewer: Nate Stafford MD Methadone Ql (U) Negative Normal NEG [facility] Comment on above: Result Comment: (Positive cutoff 300 ng/mL) Performed By: #### U AMIC, LOUIS #### [facility] [address] [place] [address] [phone] Casing Sewer: Nate Stafford MD Opiate(s), Ur Negative Normal NEG [facility] Comment on above: Result Comment: (Positive cutoff 300 ng/mL) Performed By: #### U AMIC, LOUIS #### [employer] [address] [place] [address] [phone] Casing Sewer: Nate Stafford MD Oxycodone, Urine Negative Normal NEG [facility] Comment on above: Result Comment: (Positive cutoff 100 ng/mL) Performed By: #### U AMIC, LOUIS #### [employer] [address] [place] [address] [phone] Casing Sewer: Nate Stafford MD Phencyclidine, Ur Negative Normal NEG [facility] Comment on above: Result Comment: (Positive cutoff 25 ng/mL) Performed By: #### U AMIC, LOUIS #### [facility] [employer] [address] [place] [address] 63232 Casing Sewer: Nate Stafford MD Buprenorphrine, Ur NOT REPORTED Normal NEG [facility] Comment on above: Performed By: #### U AMIC, LOUIS #### [facility] [employer] [address] [place] [address] 14305 Casing Sewer: Nate Stafford MD MDMA, Urine NOT REPORTED Normal NEG [facility] Comment on above: Performed By: #### U AMIC, LOUIS #### [facility] [employer] [address] [place] [address] 38853 Casing Sewer: Nate Stafford MD Methamphetamine, Ur NOT REPORTED Normal NEG [facility] Comment on above: Performed By: #### U AMIC, LOUIS #### [facility] [employer] [address] [place] [address] [phone] Casing Sewer: Nate Stafford MD Propoxyphene,Urine NOT REPORTED Normal NEG [facility] Comment on above: Performed By: #### U AMIC, LOUIS #### [facility] [employer] [address] [place] [address] 15774 Casing Sewer: Nate Stafford MD Tricyclic antidepressants Screen Ql (U) NOT REPORTED Normal NEG [facility] Comment on above: Performed By: #### U AMIC, LOUIS #### [employer] [address] [place] [address] 32656 Casing Sewer: Nate Stafford MD No Panel InformationOrdered By: [...] to body habitus but requires clinical correlation. [employer] Phone: EXAMINATION: TWO XRA Y VIEWS OF [...] may relate to swelling or body habitus. [employer] Phone: Francisco, Mhpn Incoming R adiant Results From [employer] - 08/01/2020 9:41 PM EDT EXAMINATION: TWO [...] to body habitus but requires clinical correlation. [employer] Phone: No Panel InformationOrdered By: Ronnie Lund on 08-01-2020 Degenerative disc di sease at L5-S1. No acute bony abnormalities are seen in the thoracic or lumbar spine [employer] Phone: EXAMINATION: CT OF T HE LUMBAR [...] SOFT TISSUES/RETROPERITONEUM: No paraspinal mass is seen. [employer] Phone: Francisco, Mhpn Incoming R adiant Results From [employer] - 08/01/2020 7:11 PM EDT EXAMINATION: CT [...] seen in the thoracic or lumbar spine [employer] Phone: TRAUMA PANELOrdered By: Carlos Pathak on 08-01-2020 Lawson Test Unable to perform te sting: No specimen received. [employer] Phone: Anion gap [Moles/Vol] 10 mmol/L 9 - 17 mmol/L [employer] Phone: aPTT Coag (Bld) [Time] 23.3 s [employer] Phone: Comment on above: IV Heparin Therapy Range: 48.6-77.8 Blood Bank Specimen BILL FOR SERVICES PERFORMED [employer] Phone: Carboxyhemoglobin Unable to perform te sting: No specimen received. % [employer] Phone: Chloride [Moles/Vol] 100 mmol/L 98 - 10 7 mmol/L [employer] Phone: CO2 [Moles/Vol] 24 mmol/L 20 - 31 mmol/L [employer] Work Phone: Creatinine [Mass/Vol] 0.71 mg/dL 0.70 - 1.20 mg/dL [employer] Phone: Ethanol [Mass/Vol] mg/dL <10 mg/dL [employer] Work Phone: Ethanol percent <0.010 <0.010 % [employer] Work Phone: FIO2 Unable to perform te sting: No specimen received. [employer] Work Phone: GFR >60 >60 mL/min [employer] Phone: GFR Non- >60 >60 mL/min [employer] Phone: GFR/1.73 sq M.predicted MDRD (S/P/Bld) [Vol rate/Area] [employer] Phone: Comment on above: Average GFR for 40-4 9 years old: 99 mL/min/1.73sq m Chronic Kidney Disease: <60 mL/min/1.73sq m Kidney failure: <15 mL/min/1.73sq m eGFR calculated using average adult body mass. Additional eGFR calculator available at: http://www.[employer]/multiple_crcl_2012.htm GFR/1.73 sq M.predicted MDRD (S/P/Bld) [Vol rate/Area] NOT REPORTED [employer] Phone: Glucose [Mass/Vol] 109 mg/dL High 70 - 99 mg/dL [employer] Work Phone: hCG Qual PATIENT IS MALE NEGATIVE [employer] Work Phone: HCO3, Venous Unable to perform te sting: No specimen received. 24.0 - 30.0 mmol/L [employer] Phone: Hematocrit (Bld) [Volume fraction] 42.3 % 40.7 - 50.3 % [employer] Phone: Hemoglobin.gastroint estinal spec 1 Ql (Stl) 14.2 g/dL 13.0 - 17.0 g/dL [employer] Phone: INR Coag (Bld) [Relative time] 1.0 {INR} [employer] Phone: Comment on above: Therapeutic Range: Moderate Anticoagulant Intensity: INR = 2.0-3.0 High Anticoagulant Intensity: INR = 2.5-3.5 Interpretation and review of laboratory results Abnormal [employer] Phone: MCH (RBC) [Entitic mass] 29.3 pg 25.2 - 33.5 pg [employer] Phone: MCHC (RBC) [Mass/Vol] 33.6 g/dL 28.4 - 34.8 g/dL [employer] Phone: MCV (RBC) [Entitic vol] 87.2 fL 82.6 - 102.9 fL [employer] Phone: Methemoglobin Unable to perform te sting: No specimen received. % [employer] Phone: Mode Unable to perform te sting: No specimen received. [employer] Phone: Negative Base Excess, Srikanth Unable to perform testing: No specimen received. 0.0 - 2.0 mmol/L [employer] Phone: NOTIFICATION Unable to perform te sting: No specimen received. [employer] Phone: NOTIFICATION TIME Unable to perform te sting: No specimen received. [employer] Phone: NRBC Automated 0.0 0.0 per 100 WBC [employer] Phone: O2 Device/Flow/% Unable to perform te sting: No specimen received. [employer] Phone: O2 Sat, Srikanth Unable to perform te sting: No specimen received. % [employer] Phone: Oxyhemoglobin Unable to perform te sting: No specimen received. 95.0 - 98.0 % [employer] Phone: pCO2, Srikanth Unable to perform te sting: No specimen received. [employer] Phone: pCO2, Srikanth, Temp Adj Unable to perform te sting: No specimen received. [employer] Phone: Peep/Cpap Unable to perform te sting: No specimen received. [employer] Phone: pH, Srikanth Unable to perform te sting: No specimen received. [employer] Phone: pH, Srikanth, Temp Adj Unable to perform te sting: No specimen received. [employer] Phone: Platelet distribution width (Bld) [Ratio] 12.9 % 11.8 - 14.4 % [employer] Phone: Platelet mean volume (Bld) [Entitic vol] 10.1 fL 8.1 - 13.5 fL [employer] Phone: Platelets (Bld) [#/Vol] 220 10*3/uL [employer] Phone: pO2, Srikanth Unable to perform te sting: No specimen received. [employer] Phone: pO2, Srikanth, Temp Adj Unable to perform te sting: No specimen received. [employer] Phone: Positive Base Excess, Srikanth Unable to perform testing: No specimen received. 0.0 - 2.0 mmol/L [employer] Phone: Potassium [Moles/Vol] 4.2 mmol/L 3.7 - 5.3 mmol/L [employer] Phone: PSV Unable to perform te sting: No specimen received. [employer] Phone: PT Coag (PPP) [Time] 10.4 s [employer] Phone: Pt Temp Unable to perform te sting: No specimen received. [employer] Phone: Pt. Position Unable to perform te sting: No specimen received. [employer] Phone: RBC (Bld) [#/Vol] 4.85 10*6/uL 4.21 - 5.7 7 m/uL [employer] Phone: Respiratory Rate Unable to perform te sting: No specimen received. [employer] Phone: Sample Site Unable to perform te sting: No specimen received. [employer] Phone: Set Rate Unable to perform te sting: No specimen received. [employer] Phone: Sodium [Moles/Vol] 134 mmol/L Low 135 - 144 mmol/L [employer] Phone: Text for Respiratory Unable to perform t esting: No specimen received. [employer] Phone: Total Hb Unable to perform te sting: No specimen received. 12.0 - 16.0 g/dl [employer] Phone: Total Rate Unable to perform te sting: No specimen received. [employer] Phone: Urea nitrogen (BldV) [Mass/Vol] 15 mg/dL 6 - 20 mg/dL [employer] Phone: VT Unable to perform te sting: No specimen received. [employer] Phone: WBC (Bld) [#/Vol] 14.1 10*3/uL High [employer] Phone: TYPE AND SCREENOrdered By: Ivonne Ba on 08-01-2020 ABO/Rh Negative [employer] Phone: Arm Band Number [phone] [id number] [facility] Work Phone: Expiration Date 08/04/2020,2359 [facility] Work Phone: Trauma Profileon 08-01-2020 aPTT Coag (Bld) [Time] 23.3 s Normal 20.5-30.5 [facility] Comment on above: Result Comment: IV Heparin Therapy Range: 48.6-77.8 Performed By: #### E RTPF TROPI ####[facility] [address] [place] [address] 28384 Lab Director: Nate Stafford MD INR Coag (PPP) [Relative time] 1.0 {INR} Normal [facility] Comment on above: Result Comment: Therapeutic Range: Moderate Anticoagulant Intensity: INR = 2.0-3.0 High Anticoagulant Intensity: INR = 2.5-3.5 Performed By: #### E RTPF TROPI ####[facility] [address] [place] [address] 16842 Lab Director: Nate Stafford MD PT Coag (PPP) [Time] 10.4 s Normal 9.1-12.3 [facility] Comment on above: Performed By: #### E RTPF TROPI ####[facility] [address] [place] [address] 12852 Lab Director: Nate Stafford MD Erythrocyte distribution width (RBC) [Ratio] 12.9 % Normal 11.8-14.4 [facility] Comment on above: Performed By: #### E RTPF TROPI ####[facility] [address] [place] [address] 30266 lab Director: Nate Stafford MD Hematocrit (Bld) [Volume fraction] 42.3 % Normal 40.7-50.3 [facility] Comment on above: Performed By: #### E RTPF TROPI ####[facility] [address] [place] [address] 14255 lab Director: Nate Stafford MD Hemoglobin (Bld) [Mass/Vol] 14.2 g/dL Normal 13.0-17.0 [facility] Comment on above: Performed By: #### E RTPF, TROPI ####[facility] [address] [place] [address] lab Director: Nate Stafford MD MCH (RBC) [Entitic mass] 29.3 pg Normal 25.2-33.5 [facility] Comment on above: Performed By: #### E RTPAlanna, TROPI ####[address] [address])[phone] Director: Nate Stafford MD MCHC (RBC) [Mass/Vol] 33.6 g/dL Normal 28.4-34.8 [facility] Comment on above: Performed By: #### E RTBERNIE TROPI ####[address] [address])[phone] Director: Nate Stafford MD MCV (RBC) [Entitic vol] 87.2 fL Normal 82.6-102.9 [facility] Comment on above: Performed By: #### E RTBERNIE TROPI ####[address] [address] Lab Director: Nate Stafford MD NRBC Automated 0.0 per 100 WBC Normal 0.0 [facility] Comment on above: Performed By: #### E RTPAlanna TROPI ####[facility] [address] [place] [address] 60946 Lab Director: Nate Stafford MD Platelet mean volume (Bld) [Entitic vol] 10.1 fL Normal 8.1-13.5 [facility] Comment on above: Performed By: #### E RTPAlanna TROPI ####[facility] [address] [place] [address] 95670 Lab Director: Nate Stafford MD Platelets (Bld) [#/Vol] 220 10*3/uL Normal 138-453 [facility] Comment on above: Performed By: #### E RTPF, TROPI ####[facility] [address] [place] [address] Lab Director: Nate Stafford MD RBC (Bld) [#/Vol] 4.85 10*6/uL Normal 4.21-5.77 [facility] Comment on above: Performed By: #### E RTPF, TROPI ####[facility] [address] [place] [address] Lab Director: Nate Stafford MD WBC (Bld) [#/Vol] 14.1 10*3/uL High 3.5-11.3 [facility] Comment on above: Performed By: #### E RTPF, TROPI ####[facility] [address] [place] [address] Lab Director: Nate Stafford MD Staging: NOT REPORTED Normal [facility] Comment on above: Performed By: #### E RTPF, TROPI ####[facility] [address] [place] [address] Lab Director: Nate Stafford MD Blood Bank BILL FOR SERVICES PERFORMED Normal [facility] Comment on above: Performed By: #### E RTPF, TROPI ####[facility] [address] [place] [address] Lab Director: Nate Stafford MD Troponinon 08-01-2020 Troponin Interp. NOT REPORTED Normal [facility] Comment on above: Performed By: #### E RTPF, TROPI ####[facility] [address] [place] [address] Lab Director: Nate Stafford MD Troponin T NOT REPORTED Normal <0.03 [facility] Comment on above: Performed By: #### E RTPF, TROPI ####[address] [phone] Lab Director: Nate Stafford MD TroponinOrdered By: Halina tyler on 08-01-2020 Troponin Interp NOT REPORTED [facility] [employer] Work Phone: Troponin T NOT REPORTED <0.03 ng/mL [facility] Work Phone: Troponin, High Sensitivity 6 ng/L 0 - 22 ng/L [facility] Work Phone: Comment on above: High Sensitivity Troponin values cannot be compared with other Troponin methodologies. Patients with high levels of Biotin oral intake (i.e >5mg/day) may have falsely decreased Troponin levels. Samples collected within 8 hours of biotin intake may require additional information for diagnosis. Urinalysis w/ Microon 2020 ----- Normal [facility] Comment on above: Performed By: #### U AMIC, LOUIS #### [facility] [employer] [address] [place] [address] [phone] Casing Sewer: Nate Stafford MD Acetoacetic Acid,Ur Negative Normal NEG [facility] Comment on above: Performed By: #### U AMIC, LOUIS #### [facility] [employer] [address] [place] [address] [phone] Casing Sewer: Nate Stafford MD Bilirubin, SemiQt,Ur Negative Normal NEG [facility] Comment on above: Performed By: #### U AMIC, LOUIS #### [facility] [employer] [address] [place] [address] [phone] Casing Sewer: Naet Stafford MD Color (U) YELLOW Normal YEL [facility] Comment on above: Performed By: #### U AMIC, LOUIS #### [facility] [employer] [address] [place] [address] [phone] Casing Sewer: Nate Stafford MD Epithelial cells LM Ql (Urine sed) 0 TO 2 Normal 0-5 [facility] Comment on above: Performed By: #### U AMIC, LOUIS #### [address] [address] Casing Sewer: Nate Stafford MD Glucose Ql (U) Negative Normal NEG [facility] Comment on above: Performed By: #### U AMIC, LOUIS #### [address] [address] Casing Sewer: Nate Stafford MD Hemoglobin, Ur Negative Normal NEG [facility] Comment on above: Performed By: #### U AMIC, LOUIS #### [address] [address] Casing Sewer: Nate Stafford MD Leukocyte esterase Test strip Ql (U) Negative Normal NEG [facility] Comment on above: Performed By: #### U AMIC, LOUIS #### [address] [address] Casing Sewer: Nate Stafford MD Nitrite,Ur Negative Normal NEG [facility] Comment on above: Performed By: #### U AMIC, LOUIS #### [address] [address] Casing Sewer: Nate Stafford MD PH,Ur 6.5 Normal 5.0-8.0 [facility] Comment on above: Performed By: #### U AMIC, LOUIS #### [address] [address] Casing Sewer: Nate Stafford MD Protein Ql (U) Negative Normal NEG [facility] Comment on above: Performed By: #### U AMIC, LOUIS #### [address] [address] Casing Sewer: Nate Stafford MD Spec. [place],Ur 1.037 High 1.005-1.030 [facility] Comment on above: Performed By: #### U AMIC, LOUIS #### [facility] [employer] [address] [place] [address] 46693 Casing Sewer: Nate Stafford MD Turbidity CLEAR Normal CLEAR [facility] Comment on above: Performed By: #### U AMIC, LOUIS #### [facility] [employer] [address] [place] [address] 19345 Casing Sewer: Nate Stafford MD Urine RBC's 0 TO 2 Normal 0-4 [facility] Comment on above: Result Comment: Refe rence range defined for non-centrifuged specimen. Performed By: #### U AMIC, LOUIS #### [facility] [employer] [address] [place] [address] 24854 Casing Sewer: Nate Stafford MD Urine WBC's 2 TO 5 Normal 0-5 [facility] Comment on above: Performed By: #### U AMIC, LOUIS #### [address] [address] Casing Sewer: Nate Stafford MD Urobilinogen,Ur Normal Normal NORM [facility] Comment on above: Performed By: #### U AMIC, LOUIS #### [facility] [employer] [address] [place] [address] 43040 Casing Sewer: Nate Stafford MD Amorphous sediment LM Ql (Urine sed) NOT REPORTED Normal NONE [facility] Comment on above: Performed By: #### U AMIC, LOUIS #### [facility] [employer] [address] [place] [address] 59711 Casing Sewer: Nate Stafford MD Bacteria NOT REPORTED Normal NONE [facility] Comment on above: Performed By: #### U AMIC, LOUIS #### [facility] [employer] [address] [place] [address] 20648 Casing Sewer: Nate Stafford MD Casts NOT REPORTED Normal 0-8 [facility] Comment on above: Performed By: #### U AMIC, LOUIS #### [facility] [address] [place] [address] 18055 Casing Sewer: Nate Stafford MD Crystals LM Nom (Urine sed) NOT REPORTED Normal NONE [facility] Comment on above: Performed By: #### U AMIC, LOUIS #### [facility] [address] [place] [address] 23599 Casing Sewer: Nate Stafford MD Epithelial, Renal NOT REPORTED Normal 0 [facility] Comment on above: Performed By: #### U AMIC, LOUIS #### [facility] [address] [place] [address] 83076 Casing Sewer: Nate Stafford MD Mucus Strands NOT REPORTED Normal NONE [facility] Comment on above: Performed By: #### U AMIC, LOUIS #### [facility] [employer] [address] [place] [address] 75327 Casing Sewer: Nate Stafford MD Other Observations NOT REPORTED Normal NREQ [facility] Comment on above: Performed By: #### U AMIC, LOUIS #### [facility] [address] [place] [address] 17681 Casing Sewer: Nate Stafford MD Trichomonas NOT REPORTED Normal NONE [facility] Comment on above: Performed By: #### U AMIC, LOUIS #### [facility] [address] [place] [address] [phone] Casing Sewer: Nate Stafford MD Yeast NOT REPORTED Normal NONE [facility] Comment on above: Performed By: #### U AMIC, LOUIS #### [facility] [address] [place] [address] 47930 Casing Sewer: Nate Stafford MD Urinalysis with microscopicO rdered By: Halina Pathak on 08-01-2020 - [facility] [employer] Work Phone: Amorphous, UA NOT REPORTED None [facility] Work Phone: Bacteria, UA NOT REPORTED None [facility] Work Phone: Bilirubin Urine Negative NEGATIVE [facility] Work Phone: Casts UA NOT REPORTED [facility] [employer] Work Phone: Color, UA YELLOW YELLOW [facility] [employer] Work Phone: Crystals, UA NOT REPORTED None /HPF [facility] Work Phone: Epithelial Cells UA 0 TO 2 [facility] [employer] Work Phone: Glucose, Ur Negative NEGATIVE [facility] Work Phone: Interpretation and review of laboratory results Abnormal [facility] [employer] Work Phone: Ketones Ql (U) Negative NEGATIVE [facility] Work Phone: Leukocyte esterase Test strip Ql (U) Negative NEGATIVE [facility] Work Phone: Mucus, UA NOT REPORTED None [facility] [employer] Work Phone: Nitrite, Urine Negative NEGATIVE [facility] Work Phone: Other Observations UA NOT REPORTED NOT REQ. [facility] [employer] Work Phone: pH, UA 6.5 [facility] [employer] Work Phone: Protein, UA Negative NEGATIVE [facility] [employer] Work Phone: RBC, UA 0 TO 2 [facility] [employer] Work Phone: Comment on above: Reference range defi lisandra for non-centrifuged specimen. Renal Epithelial, UA NOT REPORTED 0 /HPF [facility] [employer] Work Phone: Specific [place], UA 1.037 High [facility] [employer] Work Phone: Trichomonas, UA NOT REPORTED None [facility] Work Phone: Turbidity UA CLEAR CLEAR [facility] [...] 25 ng/mL) Propoxyphene, Urine NOT REPORTED NEGATIVE [employer] Phone: Test Information Assay provides medic al screening only. The absence of expected drug(s) and/or metabolite(s) may indicate diluted or adulterated urine, limitations of testing or timing of collection. [employer] Phone: Comment on above: Testing for legal pu rposes should be confirmed by another method. To request confirmation of test result, please call the lab within 7 days of sample submission. Tricyclic Antidepressants, Urine NOT REPORTED NEGATIVE [employer] Phone: XR HAND LEFT (MIN 3 VIEWS)on [...] Kylie Delgado DO 08/01/20 Final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 Requested Visits Authorized [id number] Closed Auto-Generate d Referral 04/06/2024 05/06/2025 1 1 Ordered Prescriptions (unrec ognized section and content) [...] DATE CREATED AUTHOR AUTHOR'S ORGANIZ ATION 08/01/2021 [facility] DATE CREATED AUTHOR AUTHOR'S ORGANIZ ATION 09/21/2021 [facility] DATE CREATED AUTHOR AUTHOR'S ORGANIZ ATION 04/25/2022 [facility] DATE CREATED AUTHOR AUTHOR'S ORGANIZ ATION 05/27/2022 [facility] DATE CREATED AUTHOR AUTHOR'S ORGANIZ ATION 08/29/2023 [facility] DATE CREATED AUTHOR AUTHOR'S ORGANIZ ATION 09/27/2023 [facility] DATE CREATED AUTHOR AUTHOR'S ORGANIZ ATION 11/27/2023 [facility] DATE CREATED AUTHOR AUTHOR'S ORGANIZ ATION 03/23/2024 [facility] DATE CREATED AUTHOR AUTHOR'S ORGANIZ ATION 04/27/2024 [facility] DATE CREATED AUTHOR AUTHOR'S ORGANIZ ATION 05/01/2024 [facility] DATE CREATED AUTHOR AUTHOR'S ORGANIZ ATION 05/07/2024 [facility] DATE CREATED AUTHOR AUTHOR'S ORGANIZ ATION 06/03/2024 [facility] Source Comments (unrecognize d section and content) In the event this informatio n is protected by the Federal Confidentiality of Alcohol and Drug Abuse Patient Records regulations: The Federal rules restrict any use of the information to criminally investigate or prosecute any alcohol or drug abuse patient.[facility] the event this information is protected by the Federal Confidentiality of Alcohol and Drug Abuse Patient Records regulations: The Federal rules restrict any use of the information to criminally investigate or prosecute any alcohol or drug abuse patient.[facility] HospitalIn the event this information is protected by the Federal Confidentiality of Alcohol and Drug Abuse Patient Records regulations: The Federal rules restrict any use of the information to criminally investigate or prosecute any alcohol or drug abuse patient.[facility] HospitalIn the event this information is protected by the Federal Confidentiality of Alcohol and Drug Abuse Patient Records regulations: The Federal rules restrict any use of the information to criminally investigate or prosecute any alcohol or drug abuse patient.[facility] HospitalIn the event this information is protected by the Federal Confidentiality of Alcohol and Drug Abuse Patient Records regulations: The Federal rules restrict any use of the information to criminally investigate or prosecute any alcohol or drug abuse patient.[facility] HospitalIn the event this information is protected by the Federal Confidentiality of Alcohol and Drug Abuse Patient Records regulations: The Federal rules restrict any use of the information to criminally investigate or prosecute any alcohol or drug abuse patient.[facility] HospitalIn the event this information is protected by the Federal Confidentiality of Alcohol and Drug Abuse Patient Records regulations: The Federal rules restrict any use of the information to criminally investigate or prosecute any alcohol or drug abuse patient.[facility] HospitalIn the event this information is protected by the Federal Confidentiality of Alcohol and Drug Abuse Patient Records regulations: The Federal rules restrict any use of the information to criminally investigate or prosecute any alcohol or drug abuse patient.[facility] HospitalIn the event this information is protected by the Federal Confidentiality of Alcohol and Drug Abuse Patient Records regulations: The Federal rules restrict any use of the information to criminally investigate or prosecute any alcohol or drug abuse patient.[facility] HospitalIn the event this information is protected by the Federal Confidentiality of Alcohol and Drug Abuse Patient Records regulations: The Federal rules restrict any use of the information to criminally investigate or prosecute any alcohol or drug abuse patient.[facility] HospitalIn the event this information is protected by the Federal Confidentiality of Alcohol and Drug Abuse Patient Records regulations: The Federal rules restrict any use of the information to criminally investigate or prosecute any alcohol or drug abuse patient.[facility] HospitalIn the event this information is protected by the Federal Confidentiality of Alcohol and Drug Abuse Patient Records regulations: The Federal rules restrict any use of the information to criminally investigate or prosecute any alcohol or drug abuse patient.[facility] HospitalIn the event this information is protected by the Federal Confidentiality of Alcohol and Drug Abuse Patient Records regulations: The Federal rules restrict any use of the information to criminally investigate or prosecute any alcohol or drug abuse patient.[facility] HospitalIn the event this information is protected by the Federal Confidentiality of Alcohol and Drug Abuse Patient Records regulations: The Federal rules restrict any use of the information to criminally investigate or prosecute any alcohol or drug abuse patient.[facility] HospitalIn the event this information is protected by the Federal Confidentiality of Alcohol and Drug Abuse Patient Records regulations: The Federal rules restrict any use of the information to criminally investigate or prosecute any alcohol or drug abuse patient.[facility] HospitalIn the event this information is protected by the Federal Confidentiality of Alcohol and Drug Abuse Patient Records regulations: The Federal rules restrict any use of the information to criminally investigate or prosecute any alcohol or drug abuse patient.[facility] HospitalIn the event this information is protected by the Federal Confidentiality of Alcohol and Drug Abuse Patient Records regulations: The Federal rules restrict any use of the information to criminally investigate or prosecute any alcohol or drug abuse patient.[facility] HospitalIn the event this information is protected by the Federal Confidentiality of Alcohol and Drug Abuse Patient Records regulations: The Federal rules restrict any use of the information to criminally investigate or prosecute any alcohol or drug abuse patient.[facility] HospitalIn the event this information is protected by the Federal Confidentiality of Alcohol and Drug Abuse Patient Records regulations: The Federal rules restrict any use of the information to criminally investigate or prosecute any alcohol or drug abuse patient.[facility] HospitalIn the event this information is protected by the Federal Confidentiality of Alcohol and Drug Abuse Patient Records regulations: The Federal rules restrict any use of the information to criminally investigate or prosecute any alcohol or drug abuse patient.[facility] HospitalIn the event this information is protected by the Federal Confidentiality of Alcohol and Drug Abuse Patient Records regulations: The Federal rules restrict any use of the information to criminally investigate or prosecute any alcohol or drug abuse patient.[facility] HospitalIn the event this information is protected by the Federal Confidentiality of Alcohol and Drug Abuse Patient Records regulations: The Federal rules restrict any use of the information to criminally investigate or prosecute any alcohol or drug abuse patient.[facility] HospitalIn the event this information is protected by the Federal Confidentiality of Alcohol and Drug Abuse Patient Records regulations: The Federal rules restrict any use of the information to criminally investigate or prosecute any alcohol or drug abuse patient.[facility] HospitalIn the event this information is protected by the Federal Confidentiality of Alcohol and Drug Abuse Patient Records regulations: The Federal rules restrict any use of the information to criminally investigate or prosecute any alcohol or drug abuse patient.[facility] HospitalIn the event this information is protected by the Federal Confidentiality of Alcohol and Drug Abuse Patient Records regulations: The Federal rules restrict any use of the information to criminally investigate or prosecute any alcohol or drug abuse patient.[facility] HospitalIn the event this information is protected by the Federal Confidentiality of Alcohol and Drug Abuse Patient Records regulations: The Federal rules restrict any use of the information to criminally investigate or prosecute any alcohol or drug abuse patient.[facility] HospitalIn the event this information is protected by the Federal Confidentiality of Alcohol and Drug Abuse Patient Records regulations: The Federal rules restrict any use of the information to criminally investigate or prosecute any alcohol or drug abuse patient.[facility] HospitalIn the event this information is protected by the Federal Confidentiality of Alcohol and Drug Abuse Patient Records regulations: The Federal rules restrict any use of the information to criminally investigate or prosecute any alcohol or drug abuse patient.[facility] HospitalIn the event this information is protected by the Federal Confidentiality of Alcohol and Drug Abuse Patient Records regulations: The Federal rules restrict any use of the information to criminally investigate or prosecute any alcohol or drug abuse patient.[facility] HospitalIn the event this information is protected by the Federal Confidentiality of Alcohol and Drug Abuse Patient Records regulations: The Federal rules restrict any use of the information to criminally investigate or prosecute any alcohol or drug abuse patient.[facility] HospitalIn the event this information is protected by the Federal Confidentiality of Alcohol and Drug Abuse Patient Records regulations: The Federal rules restrict any use of the information to criminally investigate or prosecute any alcohol or drug abuse patient.[facility] HospitalIn the event this information is protected by the Federal Confidentiality of Alcohol and Drug Abuse Patient Records regulations: The Federal rules restrict any use of the information to criminally investigate or prosecute any alcohol or drug abuse patient.[facility] HospitalIn the event this information is protected by the Federal Confidentiality of Alcohol and Drug Abuse Patient Records regulations: The Federal rules restrict any use of the information to criminally investigate or prosecute any alcohol or drug abuse patient.[facility] HospitalIn the event this information is protected by the Federal Confidentiality of Alcohol and Drug Abuse Patient Records regulations: The Federal rules restrict any use of the information to criminally investigate or prosecute any alcohol or drug abuse patient.[facility] Care Teams (unrecognized sec tion and content) Dog Show Judge Relationship Specialty Start Date End Date Natalia Aguillon, PAPERHANGER.VASCULAR ULTRASOUND TECHNICIAN [address] [place] [address] PCP - General Family Practice 11/23/19 Dog Show Judge Relationship Specialty Start Date End Date Natalia Aguillon, PAPERHANGER.VASCULAR ULTRASOUND TECHNICIAN [address] [place] [address] PCP - General Family Practice 11/23/19 Dog Show Judge Relationship Specialty Start Date End Date Natalia Aguillon, PAPERHANGER.VASCULAR ULTRASOUND TECHNICIAN [address] [place] [address] PCP - General Family Practice 11/23/19 Dog Show Judge Relationship Specialty Start Date End Date Natalia Aguillon, PAPERHANGER.VASCULAR ULTRASOUND TECHNICIAN [address] [place] [address] PCP - General Family Practice 11/23/19 Dog Show Judge Relationship Specialty Start Date End Date Natalia Aguillon, PAPERHANGER.VASCULAR ULTRASOUND TECHNICIAN [address] [place] [address] PCP - General Family Practice 11/23/19 Dog Show Judge Relationship Specialty Start Date End Date Natalia Aguillon, PAPERHANGER.VASCULAR ULTRASOUND TECHNICIAN [address] [place] [address] PCP - General Family Practice 11/23/19 Dog Show Judge Relationship Specialty Start Date End Date Natalia Aguillon, PAPERHANGER.VASCULAR ULTRASOUND TECHNICIAN [address] [place] [address] PCP - General Family Practice 11/23/19 Dog Show Judge Relationship Specialty Start Date End Date [facility] Natalia, PAPERHANGER.VASCULAR ULTRASOUND TECHNICIAN [address] [place] [address] PCP - General Family Practice 11/23/19 Dog Show Judge Relationship Specialty Start Date End Date [facility] Natalia, PAPERHANGER.VASCULAR ULTRASOUND TECHNICIAN [address] [place] [address] PCP - General Family Practice 11/23/19 Dog Show Judge Relationship Specialty Start Date End Date [facility] Natalia, PAPERHANGER.VASCULAR ULTRASOUND TECHNICIAN [address] [place] [address] PCP - General Family Practice 11/23/19 Dog Show Judge Relationship Specialty Start Date End [facility] PAPERHANGER.VASCULAR ULTRASOUND TECHNICIAN [address] [place] [address] PCP - General Family Practice 11/23/19 Dog Show Judge Relationship Specialty Start Date End [facility], PAPERHANGER.VASCULAR ULTRASOUND TECHNICIAN [address] [place] [address] PCP - General Family Practice 11/23/19 Dog Show Judge Relationship Specialty Start Date End [facility], PAPERHANGER.VASCULAR ULTRASOUND TECHNICIAN [address] [place] [address] PCP - General Family Practice 11/23/19 Dog Show Judge Relationship Specialty Start Date End [facility], PAPERHANGER.VASCULAR ULTRASOUND TECHNICIAN [address] [place] [address] PCP - General Family Practice 11/23/19 Dog Show Judge Relationship Specialty Start Date End Date [facility] PAPERHANGER.VASCULAR ULTRASOUND TECHNICIAN [address] [place] [address] PCP - General Family Practice 11/23/19 Dog Show Judge Relationship Specialty Start Date End Date [facility] Natalia, PAPERHANGER.VASCULAR ULTRASOUND TECHNICIAN [address] [place] [address] PCP - General Family Medicine 11/23/19 Dog Show Judge Relationship Specialty Start Date End Date [facility] Natalia, PAPERHANGER.VASCULAR ULTRASOUND TECHNICIAN [address] [place] [address] PCP - General Family Medicine 11/23/19 Dog Show Judge Relationship Specialty Start Date End Date [facility] Natalia, PAPERHANGER.VASCULAR ULTRASOUND TECHNICIAN [address] [place] [address] PCP - General Family Medicine 11/23/19 Dog Show Judge Relationship Specialty Start Date End Date [facility] Natalia, PAPERHANGER.VASCULAR ULTRASOUND TECHNICIAN [address] [place] [address] PCP - General Family Medicine 11/23/19 Dog Show Judge Relationship Specialty Start Date End Date [facility] Natalia, PAPERHANGER.VASCULAR ULTRASOUND TECHNICIAN [address] [place] [address] PCP - General Family Medicine 11/23/19 Dog Show Judge Relationship Specialty Start Date End Date [facility] Natalia, PAPERHANGER.VASCULAR ULTRASOUND TECHNICIAN [address] [place] [address] PCP - General Family Medicine 11/23/19 Dog Show Judge Relationship Specialty Start Date End Date [facility] Natalia, PAPERHANGER.VASCULAR ULTRASOUND TECHNICIAN [address] [place] [address] PCP - General Family Medicine 11/23/19 Dog Show Judge Relationship Specialty Start Date End Date [facility] Natalia, PAPERHANGER.VASCULAR ULTRASOUND TECHNICIAN [address] [place] [address] PCP - General Family Medicine 11/23/19 Dog Show Judge Relationship Specialty Start Date End Date , PAPERHANGER.VASCULAR ULTRASOUND TECHNICIAN [address] [place] [address] PCP - General Family Medicine 11/23/19 Dog Show Judge Relationship Specialty Start Date End Date agnes, PAPERHANGER.VASCULAR ULTRASOUND TECHNICIAN [address] [place] [address] PCP - General Family Medicine 11/23/19 Dog Show Judge Relationship Specialty Start Date End Date , PAPERHANGER.VASCULAR ULTRASOUND TECHNICIAN [address] [place] [address] PCP - General [facility] Medicine 11/23/19 Dog Show Judge Relationship Specialty Start Date End Date , PAPERHANGER.VASCULAR ULTRASOUND TECHNICIAN [address] [place] [address] PCP - General Family Medicine 11/23/19 Team Status: Active Member Role Status Dates Vonnie Guerrero NP-C Primary Care Provider Active Team Status: Inactive Member Role Status Dates Vonnie Guerrero NP-C Primary Care Provider Active Siri Quezada NP-Krissy Attending Provider Active Team Status: Inactive Member Role Status Dates Natalia Aguillon , ENVIRONMENTAL HEALTH TECHNICIAN-C Primary Care Provider Acti tyler Yi NP-C Attending Provider Active Team Status: Inactive Member Role Status Dates Natalia Aguillon , ENVIRONMENTAL HEALTH TECHNICIAN-C Primary Care Provider Acti tyler Quezada NP-C Attending Provider Active Team Status: Inactive Member Role Status Dates Huan Cowan DO Attending Provider Active Team Status: Active Member Role Status Dates Vonnie Guerrero ENVIRONMENTAL HEALTH TECHNICIAN-C Primary Care Provider Active Siri Quezada NP-Krissy Attending Provider Active Team Status: Active Member Role Status Dates PHYSICIAN NO FAMILY Primary Care Provider Active Team Status: Inactive Member Role Status Dates PHYSICIAN NO FAMILY Primary Care Provider Active Start: June 11, 2023 End: June 11, 2023 Siri Quezada NP-C Attending Provider Active Start: June 11, 2023 End: June 11, 2023 Dog Show Judge Relationship Specialty Start Date End Date Natalia Aguillon, PAPERHANGER.VASCULAR ULTRASOUND TECHNICIAN [address] [place] [address] PCP - General Family Medicine 11/23/19 Dog Show Judge Relationship Specialty Start Date End Date Demetrius Bernal MD [address] [place] [address] PCP - General Family Medicine 01/28/24 Dog Show Judge Relationship Specialty Start Date End Date Demetrius Bernal MD [address] [place] [address] PCP - General Family Medicine 01/28/24 Dog Show Judge Relationship Specialty Start Date End Date Demetrius Bernal MD [address] [place] [address] PCP - General Family Medicine 01/28/24 Team Status: Active Member Role Status Dates Demetrius Bernal MD Primary Care Provider Active Team Status: Active Member Role Status Dates PHYSICIAN NO FAMILY Primary Care Provider Active Start: January 28, 2024 Jared Mcgrath DO Attending Provider Active Sta rt: January 28, 2024 Team Status: Inactive Member Role Status Dates Ton Connolly MD Attending Provider Active Start: March 13, 2024 End: March 13, 2024 Demetrius Bernal MD Primary Care Provide r, Referring Provider Active Start: March 13, 2024 End: March 13, 2024 Team Status: Active Member Role Status Dates Ton Connolly MD Attending Provider, Other Provider Active Start: March 13, 2024 Demetrius Bernal MD Primary Care Provide r, Referring Provider Active Start: March 13, 2024 Team Status: Inactive Member Role Status Dates Demetrius Bernal MD Primary Care Provider Active Start: April 17, 2024 End: April 17, 2024 Ton Connolly MD Attending Provider Active Start: April 17, 2024 End: April 17, 2024 Team Status: Active Member Role Status Dates Demetrius Bernal MD Primary Care Provider Active Start: April 17, 2024 Ton Connolly MD Attending Provider, Other Provider Active Start: April 17, 2024 Dog Show Judge Relationship Specialty Start Date End Date Natalia Aguiloln, PAPERHANGER.VASCULAR ULTRASOUND TECHNICIAN [address] [place] [address] PCP - [facility] Family Medicine 11/23/19 Huan Cowna [address] [place] [address] Referring Orthopedics 03/31/24 Huan Cowan [address] [place] [address] Referring Orthopedics 04/03/24 Dog Show Judge Relationship Specialty Start Date End Date Pal Natalia, PAPERHANGER.VASCULAR ULTRASOUND TECHNICIAN [address] [place] [address] PCP - General Family Medicine 11/23/19 Huan Cowan [address] [place] [address] Referring Orthopedics 03/31/24 Huan Cowan [address] [place] [address] Referring Orthopedics 04/03/24 Goals (unrecognized section and content) Goals may [...] BE BASED ON THE PRIMARY CLINICAL RECORDS. [facility]. provides no warranty or guarantee of the accuracy or completeness of information in this document.
[2024-06-22 06:42] VITALS: BP 135/70; PULSE 66; TEMP 36.1; O2SAT 95
[2024-06-22 06:54] LABS: INR 1.57; Prothrombin Time 15.9 sec (9.0-11.6)
[2024-06-22 07:34] VITALS: BP 112/70; BP 123/65; PULSE 74; PULSE 76; O2SAT 96
[2024-06-22] MEDS: BUPIVACAINE HCL 0.25% PF 25 MG/10 ML VIAL 4 ML INJ (07:37)
[2024-06-22] MEDS: METHYLPREDNISOLONE ACETATE 40 MG/ML VIAL 80 MG INJ (07:38)
[2024-06-22] MEDS: LIDOCAINE HCL 2% 400 MG/20 ML MDV INJ (07:39)
--- NOTE | 2024-06-22 07:49 | P.ON_ITS ---
Date of procedure: 06/22/24 Pre-op diagnosis: Pain due to lumbar spondylosis without myelopathy Post-op diagnosis: same as pre-op Procedure: Procedure: Bilateral L4-5, L5-S1 radiofrequency ablation Medications: Bupivacaine 0.25% 6cc, lidocaine 2% 6cc, depomedrol 80mg The patient was seen and examined in the preoperative holding area.? The site was marked.? Written informed consent was obtained and placed on the chart.? The patient was brought to the medical procedure unit and placed in the prone position.? A timeout was completed verifying correct patient, procedure, positioning, and special requirements.? The skin overlying the target points, the designated medial branch, were prepped and draped in the usual sterile fashion.? The target point was achieved with a 20-gauge 15 cm with a 10 mm curved active tip radiofrequency cannula under direct fluoroscopic visualizati on.? The needle was inserted at level L4 on the right side. Needle tip position was confirmed with lateral fluoroscopic position.? Motor stimulation was carried out at 2 Hz up to 5 volts with the absence of extremity activity.? This was repeated at level L5, S1 on right side.?? Sensory stimulation was carried out.? Concordant pain was realized at the above- mentioned sites.? Then radiofrequency lesioning was carried out times 90 seconds at 80 degrees times 2 lesions at each level.? The radiofrequency probe was removed prior to cannula removal.? The above-mentioned injectate was placed in 1 mL increments.? The needle was removed. The same procedure, with the same steps, was then completed on the left side at the same levels. Insertion sites were covered.? The patient was taken to the postoperative recovery area and monitored for an appropriate length of time before being found suitable for discharge in the company of a responsible adult. Anesthesia: Local Surgeon: Brenton Pena Pathology: none sent Condition: stable Disposition: no change
== END 2024-06-22 07:54 | disposition home or self-care (01) ==
LOC: SURGOUT 06:17
PROVIDERS: PCP Family Medicine; Visit Provider Anesthesiology
DX: M47.816 Spondylosis without myelopathy or radiculopathy, lumbar region (principal); M54.50 Low back pain, unspecified
CPT/HCPCS: 36415; 64635; 64636; 85610; J0665; J1010

== ENCOUNTER 2024-06-25 08:15 | Emergency (ER) | payer BC, SELFPAY ==
[2024-06-25] VITALS (22 sets, daily range): BP systolic 101–119; BP diastolic 61–77; PULSE 62–80; TEMP 36.7; O2SAT 93–98; BMI 47.5
--- NOTE | 2024-06-25 08:35 | ECG_ITS ---
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 Measurements Intervals [place] Rate: 67 P: 51 MI: 162 QRS: 36 QRSD: 94 T: 245 QT: 362 QTc: 377 Interpretive Statements 1100 Sinus rhythm [address] depression 4364 Twave abnormality, possible anterolateral ischemia 4664 Twave abnormality, possible inferior ischemia 7300 Indeterminate axis 8102 Low QRS voltage in chest leads 9150 abnormal ECG Compared to ECG 01/27/2024 16:44:33 Indeterminate axis now present Low QRS voltage now present ST (T wave) deviation still present Possible ischemia still present Electronically Signed On 06-26-2024 19:15:39 EDT by SHANELLE ROLLE M.D.
--- NOTE | 2024-06-25 08:49 | ED_ITS ---
HPI HPI - General Adult General Chief complaint: Chest Pain Stated complaint: CHEST PAINS SOB Time Seen by Provider: 06/25/24 08:38 Source: patient Mode of arrival: walk-in History of Present Illness HPI narrative: 53-year-old male presents to the emergency department for chest pain. He has had it continuously for a week and it has been waxing and waning. It does not seem to radiate and it is in the middle part of the sternum. It feels like somebody sitting on him. He has been very fatigued over the past week, he states he has had trouble staying awake when he has been driving. No fever or cough or shortness of breath or back pain. Related Data Home Medications ?Medication ?Instructions ?Recorded ?Confirmed omeprazole 20 mg capsule,delayed 40 mg PO DAILY 01/28/23 06/25/24 release aspirin 81 mg tablet,delayed 81 mg PO DAILY 02/24/23 06/25/24 release (Adult Aspirin Regimen) warfarin 5 mg tablet 2.5 mg PO DAILY 09/02/23 06/25/24 warfarin 5 mg tablet 5 mg PO DAILY 09/02/23 06/25/24 cholecalciferol (vitamin D3) 50 50 mcg PO DAILY 09/16/23 06/25/24 mcg (2,000 unit) capsule metoprolol succinate 25 mg capsule 25 mg PO DAILY 09/16/23 06/25/24 sprinkle, ext. release 24 hr spironolactone 25 mg tablet 12.5 mg PO DAILY 09/16/23 06/25/24 dapagliflozin propanediol 10 mg 10 mg PO DAILY 06/25/24 06/25/24 tablet (Farxiga) furosemide 40 mg tablet 40 mg PO DAILY 06/25/24 06/25/24 Previous Rx's ?Medication ?Instructions ?Recorded gabapentin 400 mg capsule See Rx Instructions .Route 09/16/23 .COMPLEX #150 caps hydrocodone 7.5 mg-acetaminophen 1 tab PO BID PRN pain #50 tabs 04/02/24 325 mg tablet Allergies Allergy/AdvReac Type Severity Reaction Status Date / Time No Known Drug Allergies Allergy Verified 06/22/24 06:45 Opioid HPI Opioid Management Most Recent Opioid Data: Last Pain Scale 4 06/25/24 10:31 06/25/24 Last Pain Intensity 3 06/20/23 14:22 06/20/23 Last ED Pain Assessment 06/25/24 10:31 Last ORT Total Score 0 06/20/23 14:50 06/20/23 Last ORT Risk Category Low Risk 06/20/23 14:50 06/20/23 Review of Systems ROS Narrative A ten point review of systems is negative except as noted above. [facility] Medical History (Updated 06/25/24 @ 09:45 by Devin Sy MD) Hypoxia ?R09.02 - Hypoxemia (ICD-10) Community acquired pneumonia ?J18.9 - Pneumonia, unspecified organism (ICD-10) Febrile illness ?R50.9 - Fever, unspecified (ICD-10) Intractable back pain ?M54.9 - Dorsalgia, unspecified (ICD-10) Chronic lumbosacral pain ?M54.50 - Low back pain, unspecified (ICD-10) ?G89.29 - Other chronic pain (ICD-10) Foot pain ?M79.673 - Pain in unspecified foot (ICD-10) Ankle pain ?M25.579 - Pain in unspecified ankle and joints of unspecified foot (ICD-10) Achilles tendinitis ?M76.60 - Achilles tendinitis, unspecified leg (ICD-10) Plantar fascial fibromatosis ?M72.2 - Plantar fascial fibromatosis (ICD-10) Migraine ?G43.909 - Migraine, unspecified, not intractable, without status migrainosus (ICD-10) GERD (gastroesophageal reflux disease) ?K21.9 - Gastro-esophageal reflux disease without esophagitis (ICD-10) Heartburn ?R12 - Heartburn (ICD-10) High cholesterol ?E78.00 - Pure hypercholesterolemia, unspecified (ICD-10) Calcaneal spur ?M77.30 - Calcaneal spur, unspecified foot (ICD-10) Strain of Achilles tendon ?S86.019A - Strain of unspecified Achilles tendon, initial encounter (ICD-10) Low back pain ?M54.50 - Low back pain, unspecified (ICD-10) Kidney stones ?N20.0 - Calculus of kidney (ICD-10) Sleep apnea ?G47.30 - Sleep apnea, unspecified (ICD-10) Hypertension ?I10 - Essential (primary) hypertension (ICD-10) Surgical History Aortic valve replaced ?Z95.2 - Presence of prosthetic heart valve (ICD-10) History of colonoscopy ?Z98.890 - Other specified postprocedural states (ICD-10) History of foot surgery ?Z98.890 - Other specified postprocedural states (ICD-10) H/O vasectomy (2014) ?Z98.52 - Vasectomy status (ICD-10) H/O shoulder replacement ?Z96.619 - Presence of unspecified artificial shoulder joint (ICD-10) History of carpal tunnel release ?Z98.890 - Other specified postprocedural states (ICD-10) Family History Grandmother Family history of CHF (congestive heart failure) Family history of COPD (chronic obstructive pulmonary disease) Mother Family history of COPD (chronic obstructive pulmonary disease) Family history of cancer Other Family history of lung cancer Social History Within the past year, how often did you have a drink containing alcohol: monthly or less Smoking status: Never smoker Non-prescribed substance use: denies use Previous occupational history: [employer] Highest level of school completed/degree received: some college, no degree Are you now , , , , never or living with a partner: living with partner In a typical week, how many times do you talk on the telephone with family, friends, or neighbors: 3 or more times per week How often do you get together with friends or relatives: 3 or more times per week How often do you attend congregation or church services: never Do you belong to any clubs or organizations such as congregation groups unions, fraternal or athletic groups, or school groups: no Total score: 2 Score interpretation: A score of greater than or equal to 2 indicates the lowest level of social isolation. Little interest or pleasure in doing things: not at all Feeling down, depressed, or hopeless: not at all Feel stressed/tense/nervous/anxious/difficulty sleeping: not at all Do you think of yourself as: straight/heterosexual Gender Identity: male Exam Narrative Exam Narrative: Nurses note and vital signs reviewed and patient is not hypoxic. General: The patient appears well and in no apparent distress. Patient is resting comfortably on cart. Skin: Warm, dry, no pallor noted. There is no rash noted. Head: Normocephalic, atraumatic Eye: Normal conjunctiva, no drainage Ears, Nose, Mouth, and Throat: oral mucosa is moist. Nares patent. Cardiovascular: Regular Rate and Rhythm Respiratory: Patient is in no distress, no accessory muscle use, lungs are clear to auscultation, no wheezing, rales or rhonchi Back: non-tender GI: Soft and nontender Musculoskeletal: The patient has no evidence of calf tenderness, no pitting edema, symmetrical pulses noted bilaterally Neurological: A&O, normal speech Psychiatric: Cooperative Constitutional Vital Signs, click to edit/add: Last Vital Signs Temp 98.1 F 06/25/24 08:21 Pulse 66 06/25/24 10:31 Resp 14 06/25/24 10:31 BP 101/76 06/25/24 10:31 Pulse Ox 95 06/25/24 10:31 O2 Del Method Room Air 06/25/24 08:38 Course Vital Signs Vital signs: Vital Signs Pulse Oximetry 98 06/25/24 08:20 Temperature 98.1 F 06/25/24 08:21 Pulse Rate 66 06/25/24 10:31 Respiratory Rate 14 06/25/24 10:31 Blood Pressure 101/76 06/25/24 10:31 Pulse Oximetry 95 06/25/24 10:31 Oxygen Delivery Method Room Air 06/25/24 08:38 Medical Decision Making MDM Narrative Medical decision making narrative: His troponin is negative. EKG shows ST segment depression laterally. The patient reports the last time he had pain like this was when he had fluid around his heart and they had to drain it. I have spoken to Dr. Pinon who request transfer to [facility]. The patient is agreeable and stable for transfer. The patient and his however adamantly refused to be transported in an ambulance. They report the last time they were transported they got a very large bill that was difficult for them to pay. I feel comfor table allowing them to self transfer. We will leave his IV in place. He is not on any IV fluids or IV drips. I have spoken to Dr. Brown, hospitalist at [facility], who accepts the patient. The patient was again encouraged to go in an ambulance but refuses to do so for financial reasons. He was instructed to go directly to [facility]. Differential Diagnosis Differential Diagnosis: Chest pain, myocardial infarction, pericarditis, pericardial effusion Lab Data Lab results reviewed: Yes I reviewed the patient's lab results Labs: Lab Results 06/25/24 06/25/24 Range/Units 08:32 08:37 WBC 9.4 (4.0-11.0) 10^3/uL RBC 5.97 (4.70-6.10) 10^6/uL Hgb 16.6 (14.0-18.0) g/dL Hct 49.8 (42.0-54.0) % MCV 83.4 (80.0-94.0) fL MCH 27.8 (25.9-34.0) pg MCHC 33.3 (29.9-35.2) g/dL RDW 14.0 (11.0-15.0) % Plt Count 235 (150-450) 10^3/uL MPV 10.4 (9.5-13.5) fL Neut % (Auto) 73.1 (43.0-75.0) % Lymph % (Auto) 14.8 L (20.5-60.0) % [place] % (Auto) 9.9 (1.7-12.0) % Eos % (Auto) 1.3 (0.9-7.0) % Baso % (Auto) 0.6 (0.2-2.0) % Neut # (Auto) 6.9 H (1.4-6.5) 10^3/uL Lymph # (Auto) 1.4 (1.2-3.8) 10^3/uL [place] # (Auto) 0.9 H (0.3-0.8) 10^3/uL Eos # (Auto) 0.1 (0.0-0.7) 10^3/uL Baso # (Auto) 0.1 (0.0-0.1) 10^3/uL Abs Immat Gran (auto) 0.03 (0.00-0.03) 10^3/uL Imm/Tot Granulo (auto) 0.3 (0.0-0.5) % PT 15.9 H (9.0-11.6) sec INR 1.57 Sodium 140 (136-145) mmol/L Potassium 4.0 (3.5-5.1) mmol/L Chloride 100 (98-107) mmol/L Carbon Dioxide 32.2 H (21.0-32.0) mmol/L Anion Gap 11.8 BUN 20.0 H (7.0-18.0) mg/dL Creatinine 1.11 (0.70-1.30) mg/dL Est GFR ( Amer) >60 (>=60 mL/min/1.73m^2) Est GFR (Non-Af Amer) >60 (>=60 mL/min/1.73m^2) BUN/Creatinine Ratio 18.0 Glucose 82 (74-106) mg/dL Calcium 8.9 (8.5-10.1) mg/dL Total Bilirubin 0.5 (0.2-1.0) mg/dL AST 12 L (15-37) U/L ALT 22 (16-63) U/L Alkaline Phosphatase 84 (46-116) U/L Troponin I High Sens 5.5 (4.0-76.1) pg/mL NT-Pro-B Natriuret Pep 30.0 (<=900.0) pg/mL Total Protein 7.9 (6.4-8.2) g/dL Albumin 4.5 (3.4-5.0) g/dL Globulin 3.4 g/dL Albumin/Globulin Ratio 1.3 Imaging Data Chest x-ray: Radiologist's impression: No acute cardiopulmonary process ECG Data Attestation: I personally reviewed and interpreted this ECG as follows: (EKG on my interpretation shows ST segment depression in leads V 3 through V6. Comparing this EKG to an EKG taken January 27, 2004 he seems to have had some depression at that point in the same leads but it is more significant today) Discharge Plan Discharge Chief Complaint: Chest Pain Clinical Impression: Chest pain Patient Disposition: [facility] Time of Disposition Decision: 09:45 Discharge Location: [facility] Condition: Good Mode of Transportation: Private Vehicle
[2024-06-25 08:55] LABS: Basophils Absolute Auto 0.1 10^3/uL (0.0-0.1); Basophils Percent Auto 0.6 % (0.2-2.0); Eosinophils Absolute Auto 0.1 10^3/uL (0.0-0.7); Eosinophils Percent Auto 1.3 % (0.9-7.0); Hematocrit 49.8 % (42.0-54.0); Hemoglobin 16.6 g/dL (14.0-18.0); Immature Granulocytes Abs Auto 0.03 10^3/uL (0.00-0.03); Immature Granulocytes Pct Auto 0.3 % (0.0-0.5); Lymphocytes Absolute Auto 1.4 10^3/uL (1.2-3.8); Lymphocytes Percent Auto 14.8 % (20.5-60.0); Mean Corpuscular HGB Conc 33.3 g/dL (29.9-35.2); Mean Corpuscular Hemoglobin 27.8 pg (25.9-34.0); Mean Corpuscular Volume 83.4 fL (80.0-94.0); Mean Platelet Volume 10.4 fL (9.5-13.5); Monocytes Absolute Auto 0.9 10^3/uL (0.3-0.8); Monocytes Percent Auto 9.9 % (1.7-12.0); Neutrophils Absolute Auto 6.9 10^3/uL (1.4-6.5); Neutrophils Percent Auto 73.1 % (43.0-75.0); Platelet Count 235 10^3/uL (150-450); Red Blood Count 5.97 10^6/uL (4.70-6.10); White Blood Count 9.4 10^3/uL (4.0-11.0)
[2024-06-25] MEDS: NITROGLYCERIN 0.4 MG BOTTLE SL ×3 (08:56→09:15)
[2024-06-25] MEDS: ASPIRIN 81 MG TAB.CHEW 162 MG PO (08:56)
[2024-06-25] MEDS: ASPIRIN 81 MG TAB.CHEW PO (08:56)
[2024-06-25 09:02] LABS: Alanine Aminotransferase 22 U/L (16-63); Albumin Globulin Ratio 1.3; Albumin Level 4.5 g/dL (3.4-5.0); Alkaline Phosphatase 84 U/L (46-116); Anion Gap 11.8; Aspartate Amino Transferase 12 U/L (15-37); Bilirubin Total 0.5 mg/dL (0.2-1.0); Calcium 8.9 mg/dL (8.5-10.1); Carbon Dioxide 32.2 mmol/L (21.0-32.0); Chloride 100 mmol/L (98-107); Estimated GFR (African America >60 (>=60 mL/min/1.73m^2); Estimated GFR (Non-African Ame >60 (>=60 mL/min/1.73m^2); Globulin 3.4 g/dL; Glucose 82 mg/dL (74-106); Sodium 140 mmol/L (136-145); Total Protein 7.9 g/dL (6.4-8.2)
[2024-06-25 09:09] LABS: Troponin I High Sensitivity 5.5 pg/mL (4.0-76.1)
[2024-06-25 09:50] LABS: INR 1.57; Prothrombin Time 15.9 sec (9.0-11.6)
== END 2024-06-25 11:01 | disposition short-term general hospital (02) ==
PROVIDERS: Emergency Provider Emergency Medicine; PCP Family Medicine
DX: R07.9 Chest pain, unspecified (principal); R06.02 Shortness of breath; Z95.2 Presence of prosthetic heart valve; Z98.52 Vasectomy status; Z96.619 Presence of unspecified artificial shoulder joint
CPT/HCPCS: 36415; 71045; 80053; 83880; 84484; 85025; 85610; 93005; 99285

== ENCOUNTER 2024-06-30 01:59 | Outpatient (RCR) | payer BC, SELFPAY | END 2024-07-29 14:03 | disposition home or self-care (01) | LOC: MM 01:59 | PROVIDERS: PCP Family Medicine; Visit Provider Internal Medicine | DX: Z51.81 Encounter for therapeutic drug level monitoring (principal); Z79.01 Long term (current) use of anticoagulants; Z95.4 Presence of other heart-valve replacement ==

== ENCOUNTER 2024-07-15 15:10 | Outpatient (OUT) | payer BC, SELFPAY ==
--- NOTE | 2024-07-15 15:37 | P.CN_ITS ---
Consult Note: HPI Data of Consult Patient: known to practice within the last 3 years Requesting Physician: Miya Batista NP Primary Care Provider: Demetrius Parish MD Consult Narrative Reason for consult: low back pain Narrative: 53yom who presents for assessment. notes significant low back pain that is worsened with ambulation. continues on norco 7.5-325mg BID prn. also uses gabapentin 400mg BID. denies adverse med side effects. Pt has trialed numerous interventions and unfortunately the most helpful procedure was bilateral L4-5 L5-S1 facet RFAs completed april of 2023. Pt reported >90% improvement following these interventions, however in at the end of may 2023 he became septic and had significant pain and cardiac complications. We paused on interventional treatments following his sepsis, hospitalization, and aortic valve replacement. Patient continues to have moderate to severe low back pain impacting his work and quality of life. VICKIE 20%. Recently underwent bilateral L4-5 L5-S1 RFA with >50% improvement ongoing. pain today 3/10 increasing to 4/10 at the worst. cc:: CC: Miya Batista NP Review of Systems ROS Status of ROS 10 or more systems reviewed and unremark able except as noted in history and below Musculoskeletal Reports: back pain [facility] Medical History (Updated 06/25/24 @ 09:45 by Devin Sy MD) Hypoxia ?R09.02 - Hypoxemia (ICD-10) Community acquired pneumonia ?J18.9 - Pneumonia, unspecified organism (ICD-10) Febrile illness ?R50.9 - Fever, unspecified (ICD-10) Intractable back pain ?M54.9 - Dorsalgia, unspecified (ICD-10) Chronic lumbosacral pain ?M54.50 - Low back pain, unspecified (ICD-10) ?G89.29 - Other chronic pain (ICD-10) Foot pain ?M79.673 - Pain in unspecified foot (ICD-10) Ankle pain ?M25.579 - Pain in unspecified ankle and joints of unspecified foot (ICD-10) Achilles tendinitis ?M76.60 - Achilles tendinitis, unspecified leg (ICD-10) Plantar fascial fibromatosis ?M72.2 - Plantar fascial fibromatosis (ICD-10) Migraine ?G43.909 - Migraine, unspecified, not intractable, without status migrainosus (ICD-10) GERD (gastroesophageal reflux disease) ?K21.9 - Gastro-esophageal reflux disease without esophagitis (ICD-10) Heartburn ?R12 - Heartburn (ICD-10) High cholesterol ?E78.00 - Pure hypercholesterolemia, unspecified (ICD-10) Calcaneal spur ?M77.30 - Calcaneal spur, unspecified foot (ICD-10) Strain of Achilles tendon ?S86.019A - Strain of unspecified Achilles tendon, initial encounter (ICD-10) Low back pain ?M54.50 - Low back pain, unspecified (ICD-10) Kidney stones ?N20.0 - Calculus of kidney (ICD-10) Sleep apnea ?G47.30 - Sleep apnea, unspecified (ICD-10) Hypertension ?I10 - Essential (primary) hypertension (ICD-10) Surgical History Aortic valve replaced ?Z95.2 - Presence of prosthetic heart valve (ICD-10) History of colonoscopy ?Z98.890 - Other specified postprocedural states (ICD-10) History of foot surgery ?Z98.890 - Other specified postprocedural states (ICD-10) H/O vasectomy (2014) ?Z98.52 - Vasectomy status (ICD-10) H/O shoulder replacement ?Z96.619 - Presence of unspecified artificial shoulder joint (ICD-10) History of carpal tunnel release ?Z98.890 - Other specified postprocedural states (ICD-10) Family History Grandmother Family history of CHF (congestive heart failure) Family history of COPD (chronic obstructive pulmonary disease) Mother Family history of COPD (chronic obstructive pulmonary disease) Family history of cancer Other Family history of lung cancer Social History Within the past year, how often did you have a drink containing alcohol: monthly or less Smoking status: Never smoker Non-prescribed substance use: denies use Previous occupational history: [employer] Highest level of school completed/degree received: some college, no degree Are you now , , , , never or living with a partner: living with partner In a typical week, how many times do you talk on the telephone with family, friends, or neighbors: 3 or more times per week How often do you get together with friends or relatives: 3 or more times per week How often do you attend alevism or zoroastrianism services: never Do you belong to any clubs or organizations such as alevism groups unions, fraternal or athletic groups, or school groups: no Total score: 2 Score interpretation: A score of greater than or equal to 2 indicates the lowest level of social isolation. Little interest or pleasure in doing things: not at all Feeling down, depressed, or hopeless: not at all Feel stressed/tense/nervous/anxious/difficulty sleeping: not at all Do you think of yourself as: straight/heterosexual Gender Identity: male Meds Home Medications and Allergies Home Medications ?Medication ?Instructions ?Recorded ?Confirmed ?Type omeprazole 20 mg capsule,delayed 40 mg PO DAILY 01/28/23 06/25/24 History release aspirin 81 mg tablet,delayed 81 mg PO DAILY 02/24/23 06/25/24 History release (Adult Aspirin Regimen) warfarin 5 mg tablet 2.5 mg PO DAILY 09/02/23 06/25/24 History warfarin 5 mg tablet 5 mg PO DAILY 09/02/23 06/25/24 History cholecalciferol (vitamin D3) 50 50 mcg PO DAILY 09/16/23 06/25/24 History mcg (2,000 unit) capsule gabapentin 400 mg capsule See Rx Instructions .Route 09/16/23 06/25/24 Rx .COMPLEX #150 caps metoprolol succinate 25 mg capsule 25 mg PO DAILY 09/16/23 06/25/24 History sprinkle, ext. release 24 hr spironolactone 25 mg tablet 12.5 mg PO DAILY 09/16/23 06/25/24 History hydrocodone 7.5 mg-acetaminophen 1 tab PO BID PRN pain #50 tabs 04/02/24 06/25/24 Rx 325 mg tablet dapagliflozin propanediol 10 mg 10 mg PO DAILY 06/25/24 06/25/24 History tablet (Farxiga) furosemide 40 mg tablet 40 mg PO DAILY 06/25/24 06/25/24 History Allergies Allergy/AdvReac Type Severity Reaction Status Date / Time No Known Drug Allergies Allergy Verified 06/22/24 06:45 Exam Constitutional Documenting provider has reviewed patient's vital signs: yes Common normals: no apparent distress, oriented x3, healthy appearing, alert and well nourished General appearance: cooperative HENMT Common normals: normocephalic, hearing grossly normal bilaterally and moist oral mucous membranes Head and scalp: normocephalic Eye Common normals: PERRL Pupil: PERRL Neck & C-Spine Common normals: full ROM General: normal visual inspection Chest Common normals: inspection of chest normal Respiratory Common normals: normal respiratory effort, no retractions and no use of accessory muscles Back & Pelvis Lumbar spine/lower back: normal to inspection, pain with ROM and straight leg raise negative bilaterally; no lumbar spinal tenderness and no paraspinal muscle tenderness Other: mildly positive facet loading sensation intact BLE strength 5/5 in BLE Extremity Common normals: normal to inspection and full ROM Neuro Common normals: oriented x3, CN's II-XII intact bilaterally, moves all extremities, no focal motor deficits, no sensory deficits noted, deep tendon reflexes 2+ bilaterally and gait normal Sensorium/orientation: alert Motor exam: strength 5/5 throughout and no movement abnormalities noted Psych Common normals: mental status grossly normal, thought process normal, cooperative, affect normal, speech normal and activity/motor behavior normal Speech: normal speech Thought process: normal thought process Results Additional Findings Additional findings: If on a controlled substance or opioids, I have checked an [place]AR[place] report on this patient and there are no aberrancies noted in the prescribing history.??If on a controlled substance or opioid a drug screen was completed and reviewed within the last year, and if there has not been a drug screen completed we ordered one today to monitor higher risk, state monitored pain medication use. As part of providing excellent, safe, comprehensive care, the following was completed at our patient's visit: 1. A medication reconciliation and review to ensure accurate knowledge of cu rrent/active medications, including asking our patients to inform us about any [id number] medications or herbal remedies/nutritional supplements/alternative remedies. 2. A review to specifically ensure our patients have had annual screening for screening for depression, screening for tobacco use, and screening for unhealthy alcohol use. For concerning screenings had a discussion with the patient, provided patient education, and recommended follow-up with primary care provider when appropriate. If patient noted with a risk of falling, they received education on strength, gait, and balance training to prevent future risk of falling. Assessment and Plan Assessment and Plan (1) Lumbar spondylosis: Assessment and Plan: The patient has had over 3 months of moderate to severe low back pain with functional impairment and inadequate response to conservative care including NSAIDS (unless there are contraindication such as concurrent blood thinners), multiple oral or topical pain medications, and home exercise program/physical therapy.? Patient has completed >6 weeks of guided home exercise program and/or formal physical therapy program without relief of their symptoms.? I have reviewed the imaging of the lumbar spine and no red flags were identified.? The Oswestry Disability Index was completed, and the patient scored a 34%.? The patient noted the following:?? moderate to severe pain impacting ADLs, ability to sit, ability to stand, ability to walk, sex life, social life, and travel ? We discussed the risks and benefits of the procedure with the patient, and we are NOT planning on using sedation as outlined in the guidelines from Medicare unless there is a documented reason that sedation would be strongly recommended.?? ?The procedure will be completed with fluoroscopic guidance.? (2) Myofascial pain: (3) Encounter for long-term opiate analgesic use: Assessment and Plan: I feel these medications are improving the patient's quality of life and allow them to tolerate activities of daily living as well as participate in recreational activity.? The patient does not report intolerable side effects. The patient is NOT opioid naive and non-pharmacologic and non-opioid treatment has failed to significantly relieve the patient's pain and improve functionality. The patient has a diagnosis that is related to a somatic or visceral pain etiology. ? ?? I reviewed with the patient the potential risks and side effects with the use of? opioid medications including but not limited to respiratory depression,? sedation, and even . I verified the patient has access to naloxone should? these effects occur. I advised the patient to avoid the use of any other? sedation substances including alcohol, THC, and benzodiazepines while? taking opioid medications due to the risk of compounding side effects and? detrimental outcomes. I reviewed the [employer] CONSULTANT, pain treatment agreement, urine? drug screen, and opioid start talking forms. The patient was advised to let? their family know they had Naloxone in case they would need to administer? the medication.? ?? A drug screen was completed within the last year, and no aberrancies were noted regarding their use of controlled substances. The patient understands they are subject to the terms and conditions of the pain contract that they have signed. ? ?? I have checked an [place]AR[place] report on this patient today and there are no aberrancies noted in the prescribing history.? Plan as discussed today decrease hydrocodone use as tolerated. will refill norco 7.5- 325mg BID PRN moderate to severe pain 60 tabs at this time, pt has noticed significant impact in his quality of life and functional ability since decreasing. cannot take nsaids as he is on coumadin continue gabapentin and baclofen as ordered continue HEP as tolerated update UDS today f/u 3 months, sooner if needed
== END 2024-07-15 15:11 | disposition home or self-care (01) ==
PROVIDERS: PCP Family Medicine; Visit Provider Nurse Practitioner
DX: M47.816 Spondylosis without myelopathy or radiculopathy, lumbar region (principal); M79.18 Myalgia, other site; Z79.891 Long term (current) use of opiate analgesic
CPT/HCPCS: G0463

== ENCOUNTER 2024-07-30 04:46 | Outpatient (RCR) | payer BC, SELFPAY | END 2024-08-28 14:58 | disposition home or self-care (01) | LOC: MM 04:46 | PROVIDERS: PCP Family Medicine; Visit Provider Internal Medicine | DX: Z51.81 Encounter for therapeutic drug level monitoring (principal); Z79.01 Long term (current) use of anticoagulants; Z95.4 Presence of other heart-valve replacement | CPT/HCPCS: 85610; G0463 ==

== ENCOUNTER 2024-08-30 07:09 | Outpatient (RCR) | payer BC, SELFPAY | END 2024-09-24 14:16 | disposition home or self-care (01) | LOC: MM 07:09 | PROVIDERS: PCP Family Medicine; Visit Provider Internal Medicine | DX: Z51.81 Encounter for therapeutic drug level monitoring (principal); Z79.01 Long term (current) use of anticoagulants; Z95.2 Presence of prosthetic heart valve | CPT/HCPCS: 85610; G0463 ==

== ENCOUNTER 2024-09-29 02:36 | Outpatient (RCR) | payer BC, SELFPAY | END 2024-10-29 16:29 | disposition home or self-care (01) | LOC: MM 02:36 | PROVIDERS: PCP Family Medicine; Visit Provider Internal Medicine | DX: Z51.81 Encounter for therapeutic drug level monitoring (principal); Z79.01 Long term (current) use of anticoagulants; Z95.2 Presence of prosthetic heart valve | CPT/HCPCS: 85610; G0463 ==

== ENCOUNTER 2024-10-30 00:37 | Outpatient (RCR) | payer BC, SELFPAY | END 2024-11-26 12:33 | disposition home or self-care (01) | LOC: MM 00:37 | PROVIDERS: PCP Family Medicine; Visit Provider Internal Medicine | DX: Z51.81 Encounter for therapeutic drug level monitoring (principal); Z79.01 Long term (current) use of anticoagulants; Z95.2 Presence of prosthetic heart valve | CPT/HCPCS: 85610; G0463 ==

== ENCOUNTER 2024-11-06 14:12 | Outpatient (OUT) | payer OTHER, SELFPAY ==
--- OUTSIDE RECORDS SUMMARY | 2024-04-15 15:04 | XMS_ITS ---
Author Organization [facility] in [place] Address [address] [place] [address] Care Team Providers Care Finishing Room Operator Name Role Phone Conor Parish Primary Care Provider REASON FOR VISIT us abd Encounters Encounter Location Date Provider Diagnosis [facility] [address] [place] [address] 04/15/2024 Conor Pairsh Plan Of Treatment No Information Progress Notes * Pardeep BAIG EDOB:1970 (53 yo M)Acc No.[id number]:04/15/2024 Patient: Pardeep ARELLANO Karissa :1970 A ge:53 Y S ex:Male Address:[address] [facility], [place], [address] * true * Date: Generated for Michael reed/Aashish/eTransmitting on: 0 11/06/2024 02:16 PM EDT
--- OUTSIDE RECORDS SUMMARY | 2024-09-01 12:35 | XMS_ITS ---
Author Organization [facility] in [place] Address [address] [place] [address] Care Team Providers Care End Frazer Name Role Phone Conor [facility] Primary Care Provider REASON FOR VISIT rf baclofen Medications Medication SIG (Take, Route, Fr equency, Duration) Notes Start Date End Date Status Baclofen 20 MG 1 tablet Orally tid for 30 days Active Encounters Encounter Location Date Provider Diagnosis [facility] [address] [place] [address] 09/01/2024 Conor [facility] Lumbar radiculopathy M54.16 Assessments Encounter Date Diagnosis (ICD Code) Assessment Notes Treatment Notes Treatment Clinical Notes Section Notes 09/01/2024 Lumbar radiculopathy (ICD-10 - M54.16) Plan Of Treatment Medication Medication Name Sig Start Date Stop Date Notes Baclofen 20 MG 1 tablet Orally tid for 30 days Progress Notes * Pardeep BAIG EDOB:1970 (53 yo M)Acc No.[id number]:09/01/2024 Patient: Pardeep ARELLANO :1970 A ge:53 Y S ex:Male Address:[address] [place] [address], [id number] * Refills Refill Baclofen Packet, 20 MG, Orally, 90 Tablet, 1 tablet, tid, 30 days, Refills=11 * true * Date: Generated for Printi ng/Fajerig/eTransmitting on: 0 11/06/2024 02:16 PM EDT
--- OUTSIDE RECORDS SUMMARY | 2024-10-21 14:15 | XMS_ITS | Encounter Summary ---
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 Expires: 04/23/2025 documented as of this encounter Visit Diagnoses Diagnosis Thoracic spondylosis- Primary Lumbar radiculopathy Thoracic or lumbosacral neuritis or radiculitis, unspecified Chronic back pain, unspecified back location, unspecified back pain laterality Lumbar spondylosis Lumbosacral spondylosis without myelopathy Schwannoma Other benign neoplasm of connective and other soft tissue of unspecified site documented in this encounter Care Teams Railroad Auditor Relationship Specialty Start Date End Date Demetrius Parish MD [address] [facility] [place] [address] PCP - General 06/13/23 documented as of this encounter
--- NOTE | 2024-11-06 | XR_ITS ---
The [address] [address] Patient Name: NEHAL BAIG MRN: [id number] date: 1970 Sex: M Assigned Patient Location: LAB Current Patient Location: LAB Accession/Order Number: [id number] Exam Date: 11/06/2024 14:46 Report Date: 11/06/2024 14:51 At the request of: CHANDRAKANT BERNAL MD Procedure: XR chest 2V Chest 2 views CLINICAL HISTORY: LYMPHEDEMA I89.0 COMPARISON: Chest 06/25/2024 FINDINGS: Sternotomy wires and hardware are noted. Heart is normal in size. Lungs are clear. No free air. XR/XR chest 2V IMPRESSION: NO ACUTE CARDIOPULMONARY ABNORMALITY. Impression dictated by: Camilo Rivera Jr., D.O. 11/06/2024 2:51 PM Dictation Location: [place] [address] Electronically authenticated by: [id number] Y Date: 11/06/2024 14:51
--- OUTSIDE RECORDS SUMMARY | 2024-11-06 09:30 | XMS_ITS ---
Author Organization [facility] [place] Address [address] [place] [address] Care Team Providers Care Junior Bookkeeper Name Role Phone Conor Parish Primary Care Provider Allergies Allergen (clinical drug ingredient) Drug/Non Drug Allergy documented on EMR Reaction Allergy Type Onset Date Status gabapentin Gabapentin brain fog Drug Allergy Activ e spironolactone Spironolactone chest pain Drug Allergy Active Substance with 4-dejdcvl-6-methylglu taryl-coenzyme A reductase inhibitor mechanism of action (substance) Statins muscleaches Drug Allergy Active REASON FOR VISIT Presents to office with [...] 08/21/2023 Active Mupirocin 2 % 1 application Tong Setter ally Twice a day for 5 days [...] day Active Vitamin D (Cholecalciferol) 50 MCG (1999) 1 capsule Orally Once a day Active [...] Status W/U Status Risk Notes Problem Lymphedema (10841327) Lymphedema (I89.0) Active confirmed Vital Signs Weight 371.6 lbs 11/06/2024 Height 73 in 11/06/2024 Blood pressure systolic 118 mm Hg 11/07/19 25 Blood pressure diastolic 60 mm Hg 025 BMI 49.02 kg/m2 11/06/2024 Procedures Procedure Date Ordered Date Performed Result Body Sit e CARDIO Echocardiogram 11/06/2024 N/A Encounters Encounter Location Date Provider Diagnosis [facility] [address] [place] [address] 11/06/2024 Conor Parish Lymphedema I89.0 Assessments Encounter Date Diagnosis (ICD Code) Assessment Notes Treatment Notes Treatment Clinical Notes Section Notes 11/06/2024 Lymphedema (ICD-10 - I89.0) Plan Of Treatment Medication Medication Name Sig Start Date Stop Date Notes Mupirocin 2 % 1 application Tong Setter ally Twice a day for 5 days 11/06/2024 Doxycycline Monohydrate 100 MG 1 tablet Orally bid for 10 days 11/06/2024 Cefdinir 300 MG 2 capsule Orally onc e a day for 10 days 11/06/2024 Pending Test Test Name Order Date CARDIO Echocardiogram 11/06/2024 High Sensitivity Troponin 11/06/2024 BNP 11/06/2024 PROF 14(COMP METB) 11/06/2024 XR CHEST 2 V 11/06/2024 THYROID PANEL (T4/TSH/FREE T3) Progress Notes * Pardeep BAIG EDOB:1970 (54 yo M)Acc No.[id number]:11/06/2024 UNLOCKED PROGRESS NOTE Progress Note Patient: Pardeep ARELLANO Provider: Dominik Parish ([facility]), :1970 A ge:54 Y S ex:Male Date:11/06/2024 Address:[facility] [address]imitri [address], [place], [id number] Check In:01:20 PM ESTCheck O ut:02:02 PM EST Subjective: * Chief Complaints: * 1 . Presents to office with for c/o increase in lymphedema for past couple of weeks.. 2. Also noticed blisters to left upper arm 4 days ago. Some draining yellowish fluid and one was actually draining blood. * HPI: G eneral: doing weel weiht diet and limiting sale on coujmading - fofr valve Lft arm lymphedema - some open area dn jacob. * Medical History: H ypertension. * Surgical History: s houlder replacement 07/2021, Carpal Tunnel release Bilateral 2021, Vasectomy 2014, left Achilles repair, EPF, removal of calcaneal spur and flexor hallucis longus tendon transfer 03/11/2023, Kidney Stone Removal , Aortic Valve Replacement 06/27/2023, Pericardiocentesis 09/03/23, Epidural injections 10/2023, Colonoscopy- Dr Connolly 03/13/24, Colonoscopy- Dr Connolly 04/17/2024. * Hospitalization/Major Diagno stic Procedure: s ee above . * Family History: F ather: , lung [...] I nterpretation N egative * Medications: T aking Aspirin 81(Aspirin) 81 MG Tablet Delayed Release 1 tablet Orally Once a day , Taking Baclofen 20 MG Packet 1 tablet Orally bid , Taking Farxiga(Dapagliflozin Propanediol) 10 MG Tablet 1 tablet Orally Once a day , Taking Gabapentin 400 MG Capsule 1 capsule Orally bid , Taking HYDROcodone-Acetaminophen 7.5-325 MG Tablet 1 tablet as needed Orally TID-QID , Taking Lasix(Furosemide) 40 MG Tablet 1 tablet Orally Once a day , Taking Metoprolol Succinate 25 MG Capsule ER 24 Hour Sprinkle 1 capsule Orally Once a day , Taking PriLOSEC OTC(Omeprazole Magnesium) 20 MG Tablet Delayed Release 2 tablet 30 minutes before morning meal Orally Once a day , Taking Vitamin D (Cholecalciferol) 50 MCG (1999) Capsule 1 capsule Orally Once a day , Taking Warfarin Sodium 5 MG Tablet 1 tablet Orally Once a day , Discontinued Colchicine 0.6 MG Tablet 1 tablet Orally Twice a day , Discontinued Gabapentin 800 MG Tablet TAKE 1 TABLET BY MOUTH TWICE A DAY TAKE ALONG WITH 400MG TAB AT NOON FOR 30 DAYS , Discontinued Spironolactone 25 MG Tablet 12.5mg Orally every morning , Discontinued Valsartan 40 MG Tablet 1 tablet Orally once daily , Discontinued Zetia(Ezetimibe) 10 MG Tablet 1 tablet Orally Once a day , Medication List reviewed and reconciled with the patient * Allergies: S pironolactone: chest pain, Gabapentin: brain fog, Statins: muscleaches. Objective: * Vitals: W t:371.6lbs, Ht: 73 in, BP:118/60mm Hg, BMI:49.02Index, Ht-cm: 185.42 cm, Wt-k.56 kg. * Examination: A bdomen Exam:: L ef arm iwhnt mederat swelling -. Assessment: * Assessment: 1. L ymphedema - I89.0 (Primary) Plan: * Treatment: * Preventive Medicine: Screenings/Counseling: B [place] ACTION PLAN Above Normal BMI Follow-up D ietary management education, guidance, and counseling See treatment section of progress note for complete details of management plan. * * Electronic signature of Conor Parish MD, [id number] on 11/06/2024 at 02:15 PM EDT Sign off status: Pending Visit Status: C HK (Check Out) * Provider: Dominik Parish ([facility])MD Date: 11/06/2024 Generated for Franciei derek/Aashish/eTransmitting on: 11/06/2024 02:15 PM EDT History and Physical Notes * [...]
--- OUTSIDE RECORDS SUMMARY | 2024-11-06 14:16 | XMS_ITS | Encounter Summary ---
Author Organization [facility] Address [address] [place] [address] Care Team Providers Care Anesthesiology Physician Assistant Name Role Phone Demetrius Parish MD Primary Care Provider [phone] Encounter Details Date Type Department Care Team (Late st Contact Info) Description 07/29/2023 Abstract [facility] [address] [place] [id number] Huan Barragan DO [address] [place] [address] Social History Tobacco Use Types Packs/Day Years Used Date Smoking Tobacco: Never Smokeless Tobacco: Never Alcohol Use Standard Drinks/Week Comments Not Currently 0 (1 standard drink = 0.6 oz pure alcohol) rarely ; caffeine intake: 1-2 cups per day coffee, soda/pop Sex and Gender Information Value Date Recorded Sex Assigned at Not on file Legal Sex Male 6:38 PM EDT Gender Identity Not on file Sexual Orientation Not on file documented as of this encounter Plan of Treatment Not on file documented as of this encounter Visit Diagnoses Not on filedocumented in this encounter Care Teams Anesthesiology Physician Assistant Relationship Specialty Start Date End Date Demetrius Parish MD PCP - General Family Medicine 01/28/24 documented as of this encounter
--- OUTSIDE RECORDS SUMMARY | 2024-11-06 14:16 | XMS_ITS | Clinical Summary ---
Author Organization [facility] Address [address] [place] [address] Care Team Providers Care Violin Restorer Name Role Phone Demetrius Parish MD Primary Care Provider [phone] Allergies Active Allergy Reactions Criticality Noted Date Comments Atorvastatin 07/18/2023 Other Reaction(s): Other Myalgias Statins 07/14/2024 Medications acetaminophen (Tylenol) 325 MG tablet every 4 (four) hours Active aspirin 81 MG EC tablet 1 (one) time each day at the same time Active baclofen (Lioresal) 20 MG tablet Take 20 mg by mouth in the morning and 20 mg at noon and 20 mg in the evening. 07/11/2023 Active cholecalciferol (Vitamin D-3) 50 MCG (1999) capsule 1 capsule Active furosemide (Lasix) 40 MG tablet Take 40 mg by mouth every other day 07/25/2023 Active metoprolol succinate XL (Toprol-XL) 25 MG 24 hr tablet Take 25 mg by mouth at bedtime 07/18/2023 Active Multiple Vitamin (Multi-Vitamin) tablet Take 1 tablet by mouth in the morning. Active omeprazole (PriLOSEC) [address] capsule 07/18/2023 Activ e potassium chloride CR (Klor-Con M20) 20 MEQ ER tablet Take 20 mEq by mouth in the morning. 07/05/2023 Active warfarin (Coumadin) 5 MG tablet 07/05/2023 Active Farxiga 10 MG Take 10 mg by mouth Daily Active valsartan (Diovan) 40 MG tablet Active spironolactone (Aldactone) 25 MG tablet 25 mg 1 (one) time Active cyanocobalamin (Vitamin B-12) 1000 MCG tablet Take 1,000 mcg by mouth in the morning. Active ezetimibe (Zetia) 10 MG tablet Take 10 mg by mouth in the morning. 02/03/2024 Active Active Problems No known active problems Family History Medical History Relation Name Comments No Known Problems Brother epilepsy Father Cancer Mother Jamilah Casillas Relation Name Status Comments Brother Father Mother Jamilah Casillas Social History Tobacco Use Types Packs/Day Years [...] on file Sexual Orientation Not on file Last Filed Vital Signs Vital Sign Reading Time Taken Comments Blood Pressure 126/80 04/02/2019 12:00 PM EST Pulse - - Temperature 36.3 C (97.4 F) 02/04/2024 1:55 PM EST Respiratory Rate - - Oxygen Saturation - - Inhaled Oxygen Concentration - - Weight 163 kg (360 lb) 07/14/2024 3:27 PM EDT Height 180.3 cm (5' 11 ) 07/14/2024 3:27 PM EDT Body Mass Index 50.21 07/14/2024 3:27 PM EDT Plan of Treatment Not on file Insurance [employer] Care Teams Violin Restorer Relationship Specialty Start Date End Date Demetrius Parish MD PCP - General Family Medicine 01/28/24
--- OUTSIDE RECORDS SUMMARY | 2024-11-06 14:16 | XMS_ITS | Clinical Summary ---
Author Organization [facility] Address [address] [place] [address] Care Team Providers Care Trimmer And Borer Machine Operator Name Role Phone Demetrius Parish MD Primary Care Provider [phone] Allergies Active Allergy Reactions Criticality Noted Date Comments Atorvastatin Other 07/18/2023 Myalgias Medications baclofen (Lioresal) 20 mg tablet Take 20 mg by mouth in the morning, afternoon, and at bedtime. 07/11/19 24 Active cholecalciferol, vitamin D3, 50 mcg (2,000 unit) capsule 1 capsule 1 (one) time each day at the same time. Active furosemide (Lasix) 20 mg tabletIndication s:Pericardial effusion Take 1 tablet (20 mg) by mouth in the morning. 90 tablet 3 10/07/19 24 Active Additional Information Patient taking differently: 40 mgoral Daily, Reported on 10/21/2024 dapagliflozin propanediol (Farxiga) 10 mgIndications:Be nign hypertensive heart disease without congestive heart failure Take 1 tablet (10 mg) by mouth once daily as directed. 90 tablet 3 11/11/19 24 025 Active metoprolol succinate XL (Toprol-XL) 25 mg 24 hr tabletIndication s:Nonrheumatic aortic valve insufficiency,SV T (supraventricula r tachycardia) Take 1 tablet (25 mg) by mouth in the morning. 90 tablet 3 02/03/20 24 025 Active multivitamin tablet Take 1 tablet by mouth in the morning. Active cyanocobalamin (Vitamin B-12) 1,000 mcg tablet Take 1,000 mcg by mouth in the morning. Active aspirin 81 mg EC tablet Take 81 mg by mouth in the morning. Active colchicine 0.6 mg tablet Take 0.6 mg by mouth in the morning. 09/12/19 24 Active ezetimibe (Zetia) 10 mg tablet Take 10 mg by mouth in the morning. 02/03/20 24 Active HYDROcodone-acet aminophen (Medusa) 7.5-325 mg tablet Take 1 tablet by mouth every 12 (twelve) hours if needed. 08/21/19 24 Active valsartan (Diovan) 40 mg tablet Take 40 mg by mouth in the morning. 09/07/19 24 Active omeprazole (PriLOSEC) [address] capsuleIndicatio ns:Nonrheumatic aortic valve insufficiency,SV T (supraventricula r tachycardia) TAKE 1 CAPSULE (40 MG) BY MOUTH BEFORE BREAKFAST 90 capsule 2 07/31/19 25 Active warfarin (Coumadin) 5 mg tablet Take 5 mg by mouth. Take as directed per After Visit Summary. Active spironolactone (Aldactone) 25 mg tabletIndication s:Benign hypertensive heart disease without congestive heart failure Take 1 tablet (25 mg) by mouth once daily as directed. 90 tablet 3 10/28/19 25 026 Active gabapentin (Neurontin) 400 mg capsule Take 400 mg by mouth two times daily. Pt takes at noon 025 Discontin ued(Side effects) spironolactone (Aldactone) 25 mg tabletIndication s:Benign hypertensive heart disease without congestive heart failure Take 1 tablet (25 mg) by mouth once daily as directed. 90 tablet 3 11/11/19 24 025 Discontin ued(Reord er) Active Problems Problem Noted Date Diagnosed Date Achilles tendinitis, right leg 07/07/2024 Anesthesia of skin 07/07/2024 Calcaneal spur, left foot 07/07/2024 Calcaneal spur, right foot 07/07/2024 Cervical disc disease 07/07/2024 Displacement of lumbar inter vertebral disc without myelopathy 07/07/2024 Internal hemorrhoid 07/07/2024 Iron deficiency anemia 07/07/2024 Lumbar radiculopathy 07/07/2024 Malnutrition of moderate deg ree (Lynn: 60% to less than 75% of standard weight) 07/07/2024 Ankle pain 07/07/2024 Foot pain 07/07/2024 Paresthesia of skin 07/07/2024 Plantar fascial fibromatosis 07/07/2024 Strain of left Achilles tendon 07/07/2024 (HFpEF) heart failure with preserved ejection fr action 06/25/2024 Assessment & Plan (06/25/2024 12:58 PM EDT): ongoing low guideline directed medical therapy including ARB Farxiga Aldactone monitor intake output fluid status Chest pain 06/25/2024 Assessment & Plan (06/25/2024 12:58 PM EDT): EKG from the [place] [facility] showed asymmetric ST depressions in inferior and lateral leads cycle troponin telemetry continue metoprolol has history of AV endocarditis and pericardial effusion in recent past will get an echocardiogram check CRP and sed rate pain control follow-up with cardiology. At this point we will not transition to heparin until seen by cardiology. Patient appears to be with patient for more than a week for continue monitoring Elevated glucose 04/20/2024 Nontraumatic tear of left rotator cuff Prosthetic joint infection 04/20/2024 Pericardial effusion 09/03/2023 Assessment & Plan (06/25/2024 12:58 PM EDT): Clinical examination does not reveal evidence of pericardial effusion normal tympany over the chest wall no signs of tamponade we will get an echocardiogram to evaluate and follow Herniation of intervertebral disc between L5 and S1 08/14/2023 08/14/2023 Lumbar stenosis 08/14/2023 08/14/2023 S/P AVR 07/26/2023 Assessment & Plan (06/25/2024 12:58 PM EDT): Status post mechanical AVR valve continue warfarin target INR between 2.5-3.5 Diabetes 07/17/2023 07/17/2023 GERD (gastroesophageal reflux disease) 4 07/17/2023 Prostate cancer screening 07/17/20232023 SVT (supraventricular tachycardia) 06/30/2023 Acute postoperative respiratory insufficiency Acute blood loss as cause of postoperative anemi a 06/27/2023 Atelectasis 06/27/2023 Aortic valve disorder 06/25/2023 Chronic bilateral low back pain without sciatica 06/21/2023 Acute bacterial endocarditis 06/21/2023 Nonrheumatic aortic valve insufficiency 06/21/19 Morbid obesity 06/21/2023 Nonrheumatic mitral valve regurgitation 06/21/19 Other hyperlipidemia 06/21/2023 Stenosis of left carotid artery 06/21/2023 JACOBY (obstructive sleep apnea) 06/21/2023 Assessment & Plan (06/25/2024 12:58 PM EDT): Resume home setting of CPAP History of colon polyps 06/21/2023 Overview (06/21/2023): 2021- tubular adenoma Pulmonary nodules 06/21/2023 Bacteremia 06/20/2023 Impaired fasting blood sugar 02/15/2022 S/P shoulder replacement, left 02/15/2022 0 07/17/2023 Fatty metamorphosis of liver 08/15/2021 Prediabetes 08/15/2021 07/17/2023 Environmental allergies 03/10/2021 07/17/19 Shortness of breath 03/10/2021 07/17/2023 Overview (07/17/2023): Last Assessment & Plan: Assessment: Flovent daily and albuterol PRN, ~3-5 times/week Wheezing 03/10/2021 07/17/2023 Post-operative state 02/08/2021 07/17/2023 Carpal tunnel syndrome, bilateral 12/12/2020 07/17/2023 Mediastinal hematoma 08/01/2020 07/17/2023 Arthralgia of multiple sites 11/26/2019 Primary hypertension 11/26/2019 07/17/2023 Overview (07/17/2023): Last Assessment & Plan: Assessment: controlled with medication, 136/78 yesterday Assessment & Plan (06/25/2024 12:58 PM EDT): Continue meds Lightheadedness 11/26/2019 07/17/2023 Primary insomnia 11/26/2019 07/17/2023 Obesity, Class III, BMI 40-49.9 (morbid obesity) 07/30/2017 07/17/2023 Overview (07/17/2023): Last Assessment & Plan: Assessment: BMI 53 Encounters Date Type Department Care Team Description 10/27/2024 Refill [facility] [place] [address] [place] [phone] Kandis Peres MA Benign hypertensive heart disease without congestive heart failure 10/21/2024 2:15 PM EDT Follow-Up [facility] Surgery Clinic [address] [place] [address] Ninfa Collazo CNP Thoracic spondylosis (Primary Dx); Lumbar radiculopathy; Chronic back pain, unspecified back location, unspecified back pain laterality; Lumbar spondylosis; Schwannoma 10/05/2024 Telephone Neurosurgery [address] [place] [address] Ninfa Collazo CNP 09/25/2024 4:01 PM EDT - 09/25/2024 11:59 PM EDT Hospital Encounter [facility] X-Ray Imaging [address] [place] [id number] Foreign body (FB) in soft tissue Discharge Disposition: Home or Self Care () 09/25/2024 3:47 PM EDT - 09/25/2024 4:00 PM EDT Hospital Encounter [facility] MR Imaging [address] [place] [phone] Mass of spine Discharge Disposition: Home or Self Care () from Last 3 Months Immunizations Immunization Administration Dates Next Due Influenza, seasonal, injectable 02/07/2015 Tdap 11/17/2015 Family History Medical History Relation Name Comments Epididymitis Father Cancer Mother Jamilah Lung cancer Mother Jamilah Relation Name Status Comments Father Mother Jamilah Social History Tobacco Use Types Packs/Day Years Used Date Smoking Tobacco: Never Passive Smoke Exposure: Never Smokeless Tobacco: Never Alcohol Use Standard Drinks/Week Comments Not Currently 0 (1 standard drink = 0.6 oz pur e alcohol) very rarely [facility] Utilities Answer Date Recorded In the past 12 months has th e electric, gas, oil, or water company threatened to shut off services in your [...] any time in the past 12 m [facility], were you homeless or living in a longterm (including now)? No 06/25/2024 Hunger Vital Sign [...] Heterosexual or Straight 08/30 7:24 AM EDT Last Filed Vital Signs Vital Sign Reading Time Taken Comments Blood Pressure 117/74 10/21/2024 2:02 PM EDT Pulse 67 10/21/2024 2:02 PM EDT Temperature 36.1 C (97 F) 06/26/2024 2:22 PM EDT Respiratory Rate 16 06/26/2024 2:22 PM EDT Oxygen Saturation 94% 07/08/2024 9:39 AM EDT Inhaled Oxygen Concentration - - Weight 164 kg (362 lb) 10/21/2024 2:02 PM EDT Height 185.4 cm (6' 1 ) 10/21/2024 2:02 PM EDT Body Mass Index 47.76 10/21/2024 2:02 PM EDT Plan of Treatment Upcoming Encounters Date Type Department Care Team (Late st Contact Info) Description 11/12/2024 2:00 PM EDT Appointment [facility] MR Imaging [address] [place] [address] 11/12/2024 2:30 PM EDT Follow-Up [facility] Surgery Clinic [address] [place] [address] Ninfa Collazo, BEADER [address] [place] [address] 11/24/2024 9:00 AM EDT Procedure Visit [facility] [address] [place] [address] Kadeem Hernandez MD [address] [place] [address] Health Maintenance Due Date Last Done Comments CT Colonography 1972 Diabetes: Hemoglobin A1C 1972 FIT-DNA 1972 FIT 1972 FOBT 1972 Sigmoidoscopy 1972 Diabetes: Retinopathy Screening 1982 Depression Screening 1984 Diabetes: Urine Protein Screening 10/04/1991 Hepatitis B Vaccines (1 of 3 - 19+ 3-dose series) 10/04/1991 Pneumococcal Vaccine: Pediat rics (0 to 5 Years) and At-Risk Patients (6 to 64 Years) (1 of 2 - PCV) 10/04/1991 Zoster Vaccines (1 of 2) 2022 COVID-19 Vaccine (2023-2 5 season) 2023 Influenza Vaccine (#1) 2024 02/07/2015 Adult Tetanus 11/16/2025 11/17/2015 Colonoscopy 08/01/2031 07/31/2021 Colorectal Cancer Screening 08/01/2031 HIB Vaccines Aged Out No longer eligi ble based on patient's age to complete this topic HPV Vaccines Aged Out No longer eligi ble based on patient's age to complete this topic IPV Vaccines Aged Out No longer eligi ble based on patient's age to complete this topic Meningococcal B Vaccine Aged Out No l onger eligible based on patient's age to complete this topic Meningococcal Vaccine Aged Out No ankush carla eligible based on patient's age to complete this topic Rotavirus Vaccines Aged Out No longer eligible based on patient's age to complete this topic Medical Devices Implanted Type Area R D Engineer Device Identifier Shelf Expiration Date Model / Serial / Lot Valve,Aortic, Conform-X,25 - [id number] - [id number] Implanted:Qty : 1 on 06/26/2023 by Fuad Bojorquez MD at [facility] Prosthetic Valve N/A: Aorta ATR[employer] CURE [id number] 08/16/2023 ONXACE-2 5 / [id number] / 4h V-Plate Implanted:Qty : 1 on 06/26/2023 by Fuad Bojorquez MD at [facility] N/A: Sternum Other 115.101. 04 / / Description:LILY Bio Med 6h H-Plate Implanted:Qty : 1 on 06/26/2023 by Fuad Bojorquez MD at [facility] N/A: Sternum Other 115.102. 06 / / Description:lily bio med 4h Box Adi Implanted:Qty : 1 on 06/26/2023 by Fuad Bojorquez MD at [facility] N/A: Sternum Other 115.103. 04 / / Description:LILY BIO MED 10 Mm Screws Mint Implanted:Qty : 4 on 06/26/2023 by Fuad Bojorquez MD at [facility] N/A: Sternum Other 100.035. 10 / / 16 Mm Screws Gold Implanted:Qty : 6 on 06/26/2023 by Fuad Bojorquez MD at [facility] N/A: Sternum Other 100.035. 16 / / Description:LILY BIO MED 20 Mm Screws Magenta Implanted:Qty : 4 on 06/26/2023 by Fuad Bojorquez MD at [facility] N/A: Sternum Other 100.035. 20 / / Description:LILY BIO MED Procedures Procedure Name Priority Date/Time Associated Diagnosis Comments MR LUMBAR SPINE W AND WO CONTRAST Routine 09/25/2024 5:04 PM EDT Mass of spine XR EYE FOREIGN BODY STAT 09/25/2024 4 :05 PM EDT Foreign body (FB) in soft tissue from Last 3 Months Results * MR lumbar spine w and wo contrast (09/25/2024 5:04 PM EDT) Anatomical Region Laterality Modality Spine, L-spine Magnetic Resonan ce 09/28/2024 8:39 AM EDT Impressions 09/28/2024 8:50 AM EDT Overall stable appearance of 4 mm enhancing nodularity along the cauda equina roots within the dorsal thecal sac at L4-L5. Suspected meningioma versus schwannoma. Additional etiologies such as drop metastases cannot be entirely excluded although favored to be unlikely given the stability of the finding. Degenerative changes most pronounced at L5-S1. Electronically signed: Clay Alvarado MD. Narrative 09/28/2024 8:50 AM EDT MR LUMBAR SPINE W AND WO CONTRAST 09/25/2024 3:55 PM CLINICAL INDICATIONS: Follow-up for spinal lesion. Technique: Multiplanar multisequence MRI of the lumbar spine was performed with and without contrast. COMPARISON: 09/26/2023. FINDINGS: Modic 2 changes to the opposing endplates of L5 and S1. Remaining vertebral body heights and signal characteristics are within normal limits. Desiccation of the intervertebral discs most notably at the L5-S1 level. Likely a small vertebral body hemangioma at S2. No extradural fluid collections. There is mild enhancements along the disc osteophyte complex at L5-S1 both within the ventral epidural space as well as the prevertebral space is most likely degenerative in etiology given the temporal stability. The conus terminates at approximately T12-L1. Small enhancing nodularity seen along the cauda equina roots within the midline posterior thecal sac best appreciated on series 5 image 11 and series 10 image 8 measures approximately 4 to 5 mm and maximal dimension. Overall size and morphology is not significantly changed. Spinal levels: T12-L1: No significant spinal canal or neural foraminal stenosis. L1-L2: No significant spinal canal or neural foraminal stenosis. L2-L3: Minimal disc bulge without significant spinal canal or neural foraminal stenosis. L3-L4: No significant spinal canal or neural foraminal stenosis. Small right facet effusion. L4-L5: Circumferential disc bulge. Mild facet arthropathy. No significant spinal canal or neural foraminal stenosis. L5-S1: Central disc protrusion with superimposed Circumferential disc osteophyte complex with indentation of the ventral thecal sac. No significant spinal canal stenosis. No more than minimal foraminal stenosis. The disc material closely approximates the exiting L5 nerve root on the right. Paraspinal soft tissues: Normal. Included abdominal structures: Normal. Procedure Note Clay Alvarado MD - 09/28/2024 MR LUMBAR SPINE W AND WO CONTRAST 09/25/2024 3:55 PM CLINICAL INDICATIONS: Follow-up for spinal lesion. Technique: Multiplanar multisequence MRI of the lumbar spine was performedwith and without contrast. COMPARISON: 09/26/2023. FINDINGS: Modic 2 changes to the opposing endplates of L5 and S1.Remaining vertebral body heights and signal characteristics are within normallimits. Desiccation of the intervertebral discs most notably at the L5-S1 level.Likely a small vertebral body hemangioma at S2. No extradural fluid collections. There is mild enhancements along thedisc osteophyte complex at L5-S1 both within the ventral epidural space as wellas the prevertebral space is most likely degenerative in etiology given the temporal stability. The conus terminates at approximately T12-L1. Small enhancing nodularityseen along the cauda equina roots within the midline posterior thecal sacbest appreciated on series 5 image 11 and series 10 image 8 measuresapproximately 4 to 5 mm and maximal dimension. Overall size and morphology is notsignificantly changed. Spinal levels: T12-L1: No significant spinal canal or neural foraminal stenosis. L1-L2: No significant spinal canal or neural foraminal stenosis. L2-L3: Minimal disc bulge without significant spinal canal or neuralforaminal stenosis. L3-L4: No significant spinal canal or neural foraminal stenosis. Smallright facet effusion. L4-L5: Circumferential disc bulge. Mild facet arthropathy. No significantspinal canal or neural foraminal stenosis. L5-S1: Central disc protrusion with superimposed Circumferential discosteophyte complex with indentation of the ventral thecal sac. No significant spinalcanal stenosis. No more than minimal foraminal stenosis. The disc materialclosely approximates the exiting L5 nerve root on the right. Paraspinal soft tissues: Normal. Included abdominal structures: Normal. IMPRESSION: Overall stable appearance of 4 mm enhancing nodularity along the caudaequina roots within the dorsal thecal sac at L4-L5. Suspected meningioma versus schwannoma. Additional etiologies such as drop metastases cannot beentirely excluded although favored to be unlikely given the stability of thefinding. Degenerative changes most pronounced at L5-S1. Electronically signed: Clay Alvarado MD. Ninfa Collazo [facility] MRI PROCEDURES Final Resul t * XR eye foreign body (09/25/2024 4:05 PM EDT) Anatomical Region Laterality Modality Eye Computed Radiogr aphy 09/25/2024 4:13 PM EDT Impressions 09/25/2024 4:13 PM EDT * No metallic density foreign bodies project over the orbits. Electronically signed: Drew Natarajan MD. Narrative 09/25/2024 4:13 PM EDT 2 views of the orbits HISTORY: Pre-MRI COMPARISON: None Procedure Note Drew Natarajan MD - 09/25/2024 2 views of the orbits HISTORY: Pre-MRI COMPARISON: None IMPRESSION: *No metallic density foreign bodies project over the orbits. Electronically signed: Drew Natarajan MD. [facility] PROCEDURES Final Result from Last 3 Months Insurance [employer] Advance Directives * Full Code (Latest Code Status on File) Date Activated Date Inactivated Comments 06/25/2024 12:46 PM 06/26/2024 6:48 PM * Full Code Date Activated Date Inactivated Comments 09/03/2023 2:39 PM 09/06/2023 3:04 PM * Full Code Date Activated Date Inactivated Comments 06/20/2023 11:54 PM 07/05/2023 5:50 PM Care Teams Trimmer And Borer Machine Operator Relationship Specialty Start Date End Date Demetrius Parish MD [address] [facility] [address] [address] PCP - General 06/13/23
--- OUTSIDE RECORDS SUMMARY | 2024-11-06 14:16 | XMS_ITS | Encounter Summary ---
Author Organization [facility] Address [address] [place] [address] Care Team Providers Care Sales Agent Business Services Name Role Phone Natalia Aguillon APRN.FRUIT WORKER Primary Care Provider Huan Barragan Unavailable Huan Barragan Unavailable Source Comments In the event this information is protected by the Federal Confidentiality of Alcohol and Drug AbusePatient Records regulations: The Federal rules restrict any use of the information to criminally investigate or prosecute any alcohol or drug abuse patient.[facility] Encounter Details Date Type Department Care Team (Late st Contact Info) Description 10/27/2021 Patient Msg Endocrinology [address] [place] [address] Becca Boateng, PSS Appointment Requested Social History Tobacco Use Types Packs/Day Years Used Date Smoking Tobacco: Never Smokeless Tobacco: Never Alcohol Use Standard Drinks/Week Comments Yes 0 (1 standard drink = 0.6 oz pur e alcohol) Rare Social Connection and Isolat ion Panel [NHANES] Answer Date Recorded In a typical week, how many times do you talk on the phone with family, friends, or neighbors? More than three times a week 08/06/2020 How often do you get togethe r with friends or relatives? Once a week 08/06/2020 How often do you attend chur ch or jew services? Never 08/06/2020 Do you belong to any clubs o r organizations such as christianity groups, unions, fraternal or athletic groups, or school groups? No 08/06/2020 How often do you attend meet ings of the clubs or organizations you belong to? Never 08/06/2020 Are you , , di vorced, , never , or living with a partner? 08/06/2020 AUDIT-C Answer Date Recorded Q1: How often do you have a drink containing alc ohol? Never 08/06/2020 Q2: How many drinks containi ng alcohol do you have on a typical day when you are drinking? Patient declined 08/06/2020 Q3: How often do you have si x or more drinks on one occasion? Never 08/06/2020 Overall Financial Resource Strain (CARDIA) Answe r Date Recorded How hard is it for you to pa y for the very basics like food, housing, medical care, and heating? Not hard at all 08/06/2020 PHQ-2 Answer Date Recorded PHQ-2 score 1 08/09/2021 [facility] of Occupat ional Health - Occupational Stress Questionnaire Answer Date Recorded Do you feel stress - tense, restless, nervous, or anxious, or unable to sleep at night because your mind is troubled all the time - these days? Only a little 08/06/2020 Exercise Vital Sign Answer Date Recorde d On average, how many days pe r week do you engage in moderate to strenuous exercise (like a brisk walk)? 2 days 08/06/2020 On average, how many minutes do you engage in exercise at this level? 30 min 08/06/2020 Hunger Vital Sign Answer Date Recorded Within the past 12 months, y ou worried that your food would run out before you got the money to buy more. Never true 08/07/19 21 Within the past 12 months, t he food you bought just didn't last and you didn't have money to get more. Never true 08/06/2020 PRAPARE - Transportation Answer Date Re corded In the past 12 months, has l ack of transportation kept you from medical appointments or from getting medications? No 10/2020 In the past 12 months, has l ack of transportation kept you from meetings, work, or from getting things needed for daily living? No 08/06/2020 Housing Stability Vital Sign Answer Matt e Recorded In the last 12 months, was t here a time when you were not able to pay the mortgage or rent on time? No 07/21/2021 In the last 12 months, how many places have you lived? 1 07/21/2021 In the last 12 months, was t here a time when you did not have a steady place to sleep or slept in a group home (including now)? No 07/21/2021 Area Deprivation Index Answer Date Omid rded National Score (1-100), lower number is lower ri sk 84 08/17/2021 State Score (1-10), lower number is lower risk N ot on file 08/17/2021 Data from: https://www.neighborhoodatlas.medicine.[facility].edu/. Last address used for calculation 1 08/17/2021 Education Answer Date Recorded What is the highest level of school you have completed or the highest degree you have received? Associate degree: occupational, technical, or vocational program 08/06/2020 Sex and Gender Information Value Date Recorded Sex Assigned at Male 08/03/2021 9:10 AM EDT Legal Sex Male 8:02 AM EST Gender Identity Male 02/14/2021 10:19 AM EST Sexual Orientation Straight 02/14/2021 10 :19 AM EST documented as of this encounter Functional Status * Are you deaf or do you have serious difficulty hearing? Answer Date of Assessment Author No 10/29/2014 2:34 PM Karissa Young RN * Are you blind or do you have serious difficulty seeing, even when wearing glasses? Answer Date of Assessment Author No 10/29/2014 2:34 PM Karissa Young RN * Do you have serious difficulty walking or climbing stairs? Answer Date of Assessment Author No 10/29/2014 2:34 PM Karissa Young RN * Do you have difficulty dressing or bathing? Answer Date of Assessment Author No 10/29/2014 2:34 PM aKrissa Young RN * Because of a physical, mental, or emotional condition, do you have difficulty doing errands alone such as visiting a doctor's office or shopping? Answer Date of Assessment Author No 10/29/2014 2:34 PM Karissa Young RN documented as of this encounter Mental Status * Because of a physical, mental, or emotional condition, do you have serious difficulty concentrating, remembering, or making decisions? Answer Entry Date Author No 10/29/2014 2:34 PM Karissa Young RN documented in this encounter Plan of Treatment Not on file documented as of this encounter Visit Diagnoses Not on filedocumented in this encounter Care Teams Sales Agent Business Services Relationship Specialty Start Date End Date Natalia Aguillon, ORTHOPEDIC SHOES SALESPERSON.FRUIT WORKER [address] [place] [place] [address] PCP - General Family Medicine 11/23/19 Huan Barragan [address] [facility] [place] [address] Referring Orthopedics 03/31/24 Huan Barragan [address] [place] [address] Referring Orthopedics 04/03/24 documented as of this encounter
--- OUTSIDE RECORDS SUMMARY | 2024-11-06 14:16 | XMS_ITS | Encounter Summary ---
Author Organization [facility] Address [address] [place] [address] Care Team Providers Care Digital Program Manager Name Role Phone Natalia Aguillon APRN.BUILDING SURVEYOR Primary Care Provider Huan Barragan Unavailable Huan Barragan Unavailable Source Comments In the event this information is protected by the Federal Confidentiality of Alcohol and Drug AbusePatient Records regulations: The Federal rules restrict any use of the information to criminally investigate or prosecute any alcohol or drug abuse patient.[facility] Encounter Details Date Type Department Care Team (Late st Contact Info) Description 09/14/2020 Patient Msg Internal Medicine [place] [address] [facility] [place] [address] Provider, Ccf E-consult PULM regarding lung nodule Social History Tobacco Use Types Packs/Day Years [...] often do you attend chur ch or spiritism services? Never 08/06/2020 Do you belong to any clubs o r organizations such as sikh groups, unions, fraternal or athletic groups, or [...] 08/06/2020 PHQ-2 Answer Date Recorded PHQ-2 score 0 08/06/2020 [facility] of Occupat ional Health - Occupational Stress [...] the mortgage or rent on time? No 08/06/2020 In the last 12 months, how many places have you lived? 1 08/06/2020 In the last 12 months, was t here a time when you did not have a steady place to sleep or slept in a residential (including now)? No 08/06/2020 Area Deprivation Index Answer Date Omid rded National Score (1-100), lower number is lower ri sk Not on file 03/06/2020 State Score (1-10), lower number is lower risk N ot on file 03/06/2020 Data from: https://www.neighborhoodatlas.medicine.[facility].edu/. Last address used for calculation Not on file 03/06/2020 Education Answer Date Recorded What is the [...] Orientation Straight 02/14/2021 10 :19 AM EST COVID-19 Exposure Response Date Recorded In the last month, have you been in contact with someone who was confirmed or suspected to have Coronavirus / COVID-19? No / Unsure 09/13/2020 4:46 PM EDT documented as of this encounter Functional Status * Are you deaf or do you have serious difficulty hearing? Answer Date of Assessment Author No 10/29/2014 2:34 PM EDT Karissa Humphrey RN * Are you blind or do you have serious difficulty seeing, even when wearing glasses? Answer Date of Assessment Author No 10/29/2014 2:34 PM EDT Karissa Humphrey RN * Do you have serious difficulty walking or climbing stairs? Answer Date of Assessment Author No 10/29/2014 2:34 PM Karissa Young RN * Do you have difficulty dressing or bathing? Answer Date of Assessment Author No 10/29/2014 2:34 PM Karissa Young RN * Because of a physical, [...] on filedocumented in this encounter Care Teams Digital Program Manager Relationship Specialty Start Date End Date Natalia Aguillon, EZE.BUILDING SURVEYOR [address] [place] [address] PCP - General Family Medicine 11/23/19 Huan Barragan [address] [place] [address] Referring Orthopedics 03/31/24 Huan Barragan [address] [place] [address] Referring Orthopedics 04/03/24 documented as of this encounter
--- OUTSIDE RECORDS SUMMARY | 2024-11-06 14:16 | XMS_ITS | Encounter Summary ---
Author Organization [facility] Address [address] [place] [address] Care Team Providers Care Diver Assistant Name Role Phone Natalia Aguillon APRN.DIRECTOR OF EVENT SALES Primary Care Provider Huan Barragan Unavailable Huan Barragan Unavailable Source Comments In the event this information is protected by the Federal Confidentiality of Alcohol and Drug AbusePatient Records regulations: The Federal rules restrict any use of the information to criminally investigate or prosecute any alcohol or drug abuse patient.[facility] Encounter Details Date Type Department Care Team (Late st Contact Info) Description 09/14/2020 Patient Msg Internal Medicine [place] [address] [facility] [address] Provider, [place] Lung Nodule-Follow Up Social History Tobacco Use Types Packs/Day Years [...] often do you attend chur ch or evangelical services? Never 08/06/2020 Do you belong to any clubs o r organizations such as roman catholic groups, unions, fraternal or athletic groups, [...] Answer Date Recorded PHQ-2 score 0 08/06/2020 [facility] of Occupat ional Health - Occupational Stress [...] place to sleep or slept in a [place] health care facility (including now)? No 08/06/2020 Area Deprivation Index Answer Date Omid rded National Score (1-100), lower number is lower ri sk Not on file 03/06/2020 State Score (1-10), lower number is lower risk N ot on file 03/06/2020 Data from: https://www.neighborhoodatlas.medicine.[facility].edu/. Last address used for calculation Not on [...] on filedocumented in this encounter Care Teams Diver Assistant Relationship Specialty Start Date End Date Natalia Aguillon, DOWEL MAKER.DIRECTOR OF EVENT SALES [address] [place] [address] PCP - General Family Medicine 11/23/19 Huan Barragan [address] [place] [address] Referring Orthopedics 03/31/24 Huan Barragan [address] [place] [address] Referring Orthopedics 04/03/24 documented as of this encounter
--- OUTSIDE RECORDS SUMMARY | 2024-11-06 14:16 | XMS_ITS | Encounter Summary ---
Author Organization [facility] Address [address] [place] [address] Care Team Providers Care Skein Washer Name Role Phone Demetrius Parish MD Primary Care Provider [phone] Reason for Visit * Reason Onset Date Comments Med Refill 10/27/2024 Encounter Details Date Type Department Care Team (Late st Contact Info) Description 10/27/2024 Refill [facility] [address] [place] [address] Kandis Peres MA Benign hypertensive heart disease without congestive heart failure Social History Tobacco Use Types Packs/Day Years Used Date Smoking Tobacco: Never Passive Smoke Exposure: Never Smokeless Tobacco: Never Alcohol Use Standard Drinks/Week Comments Not Currently 0 (1 standard drink = 0.6 oz pur e alcohol) very rarely [facility] Utilities Answer Date Recorded In the past 12 months has e [employer], gas, oil, or water [employer] threatened to shut off services in your [...] any time in the past 12 m [facility], were you homeless or living in a fci (including now)? No 06/25/2024 Hunger Vital Sign [...] AM EDT documented as of this encounter Plan of Treatment Upcoming Encounters Date Type Department Care Team (Late st Contact Info) Description 11/12/2024 2:00 PM EDT Appointment [facility] MR Imaging [address] [facility] [place] [address] 11/12/2024 2:30 PM EDT Follow-Up [facility] Surgery Clinic [address] [facility] [place] [address] Ninfa Collazo, ANIMAL DAMAGE CONTROL AGENT [address] [place] [address] 11/24/2024 9:00 AM EDT Procedure Visit [facility] [address] [place] [phone] Kadeem Hernandez MD [address] [facility] [place] [address] documented as of this encounter Visit Diagnoses Diagnosis Benign hypertensive heart disease without congestive heart failure Benign hypertensive heart disease without heart failure documented in this encounter Care Teams Skein Washer Relationship Specialty Start Date End Date Demetrius Parish MD [address] [place] [address] PCP - General 06/13/23 documented as of this encounter
--- OUTSIDE RECORDS SUMMARY | 2024-11-06 14:16 | XMS_ITS | Clinical Summary ---
Author Organization [facility] Address [address], [address] [place] [address] Care Team Providers Care Councillor [employer] Name Role Phone Natalia Aguillon EZE - SAND SHOVELER Primary Care Provide r Allergies No known active allergies Medications lisinopril (PRINIVIL;ZESTR IL) 5 MG tablet Take 5 mg by mouth daily Active atorvastatin (LIPITOR) 20 MG tablet Take 20 mg by mouth nightly 04/18/2020 Active acetaminophen (TYLENOL) 500 MG tablet Take 2 tablets by mouth every 8 hours for 5 days 30 tablet 08/02/2020 Active ibuprofen (ADVIL;MOTRIN) 600 MG tablet Take 1 tablet by mouth 4 times daily as needed for Pain 20 tablet 08/02/2020 Active Active Problems Problem Noted Date Diagnosed Date Mediastinal hematoma 08/01/2020 Social History Tobacco Use Types Packs/Day Years Used Date Smoking Tobacco: Never Smokeless Tobacco: Never Alcohol Use Standard Drinks/Week Comments Not Currently 0 (1 standard drink = 0.6 oz pur e alcohol) Sex and Gender Information Value Date Recorded Sex Assigned at Not on file Legal Sex Male 2:47 PM EDT Gender Identity Not on file Sexual Orientation Not on file Last Filed Vital Signs Vital Sign Reading Time Taken Comments Blood Pressure 132/95 08/02/2020 7:14 AM EDT Pulse 93 08/02/2020 7:14 AM EDT Temperature 36.8 C (98.2 F) 08/02/2020 7:14 AM EDT Respiratory Rate 20 08/02/2020 7:14 AM EDT Oxygen Saturation 93% 08/02/2020 9:45 AM EDT Inhaled Oxygen Concentration - - Weight 177.8 kg (392 lb) 08/01/2020 2:54 PM EDT Height 185.4 cm (6' 1 ) 08/01/2020 2:54 PM EDT Body Mass Index 51.72 08/01/2020 2:54 PM EDT Plan of Treatment Not on file Insurance GENERIC SELF-INSURED Advance Directives * Full Code (Latest Code Status on File) Date Activated Date Inactivated Comments 08/01/2020 11:59 PM 08/02/2020 7:26 PM Care Teams Councillor [employer] Relationship Specialty Start Date End Date Natalia Aguillon APRN - LEODAN [address] [place], [place] [id number] PCP - General Nurse Practitioner 08/01/20
--- OUTSIDE RECORDS SUMMARY | 2024-11-06 14:16 | XMS_ITS | Encounter Summary ---
Author Organization [facility] Address [address] [place] [address] Care Team Providers Care Alcohol Law Enforcement Agent Name Role Phone Natalia Aguillon APRN.STUDENT AFFAIRS DEAN Primary Care Provider Huan Barragan Unavailable Huan Barragan Unavailable Source Comments In the event this information is protected by the Federal Confidentiality of Alcohol and Drug AbusePatient Records regulations: The Federal rules restrict any use of the information to criminally investigate or prosecute any alcohol or drug abuse patient.[facility] Encounter Details Date Type Department Care Team (Late st Contact Info) Description 04/22/2020 Get Medical Advice Internal Medicine [place] [address] [place] [address] Provider, Ccf RE: Non-Urgent Medical Question Social History Tobacco Use Types Packs/Day Years Used Date Smoking Tobacco: Never Smokeless Tobacco: Never Alcohol Use Standard Drinks/Week Comments Yes 0 (1 standard drink = 0.6 oz pur e alcohol) [facility] Area Deprivation Index Answer Date Omid rded National Score (1-100), lower number is lower ri sk Not on file 03/06/2020 State Score (1-10), lower number is lower risk N ot on file 03/06/2020 Data from: https://www.neighborhoodatlas.medicine.[facility]/. Last address used for calculation Not on file 03/06/2020 Sex and Gender Information Value Date Recorded Sex Assigned at Male 08/03/2021 9:10 AM EDT Legal Sex Male 8:02 AM EST Gender Identity Male 02/14/2021 10:19 AM EST Sexual Orientation Straight 02/14/2021 10 :19 AM EST documented as of this encounter Functional Status * Are you deaf or do you have serious difficulty hearing? Answer Date of Assessment Author No 10/29/2014 2:34 PM EDMicki Prado RN * Are you blind or do you have serious difficulty seeing, even when wearing glasses? Answer Date of Assessment Author No 10/29/2014 2:34 PM Micki Young RN * Do you have serious difficulty walking or climbing stairs? Answer Date of Assessment Author No 10/29/2014 2:34 PM Micki Young RN * Do you have difficulty dressing or bathing? Answer Date of Assessment Author No 10/29/2014 2:34 PM Micki Young RN * Because of a physical, mental, or emotional condition, do you have difficulty doing errands alone such as visiting a doctor's office or shopping? Answer Date of Assessment Author No 10/29/2014 2:34 PM Micki Young RN documented as of this encounter Mental Status * Because of a physical, mental, or emotional condition, do you have serious difficulty concentrating, remembering, or making decisions? Answer Entry Date Author No 10/29/2014 2:34 PM Micki Young RN documented in this encounter Plan of Treatment Not on file documented as of this encounter Visit Diagnoses Not on filedocumented in this encounter Care Teams Alcohol Law Enforcement Agent Relationship Specialty Start Date End Date Natalia Aguillon APRN.CNP [address] [place] [address] PCP - General Family Medicine 11/23/19 Huan Barragan [address] [place], [place] [address] [address] Referring Orthopedics 03/31/24 Huan Barragan [address] [place] [address] Referring Orthopedics 04/03/24 documented as of this encounter
--- OUTSIDE RECORDS SUMMARY | 2024-11-06 14:16 | XMS_ITS | Encounter Summary ---
Author Organization [facility] Address [address] [place] [address] Care Team Providers Care Doctor Of Naprapathic Medicine Name Role Phone Natalia Aguillon APRN.ROUTER OPERATOR RADIAL Primary Care Provider Huan Barragan Unavailable Huan Barragan Unavailable Source Comments In the event this information is protected by the Federal Confidentiality of Alcohol and Drug AbusePatient Records regulations: The Federal rules restrict any use of the information to criminally investigate or prosecute any alcohol or drug abuse patient.[facility] Encounter Details Date Type Department Care Team (Late st Contact Info) Description 07/19/2020 Patient Msg Internal Medicine [place] [address] [place] [address] Provider, Ccf schedule appointment Social History Tobacco Use Types Packs/Day Years Used Date Smoking Tobacco: Never Smokeless Tobacco: Never Alcohol Use Standard Drinks/Week Comments Yes 0 (1 standard drink = 0.6 oz pur e alcohol) Rare Area Deprivation Index Answer Date Omid rded National Score (1-100), lower number is lower ri sk Not on file 03/06/2020 State Score (1-10), lower number is lower risk N ot on file 03/06/2020 Data from: https://www.neighborhoodatlas.medicine.[facility].edu/. Last address used for calculation Not on [...] on filedocumented in this encounter Care Teams Doctor Of Naprapathic Medicine Relationship Specialty Start Date End Date Natalia Aguillon APRN.CNP [address] [place] [address] PCP - General Family Medicine 11/23/19 Huan Barragan [facility] [place] [address] Referring Orthopedics 03/31/24 Huan Barragan [address] [place] [address] Referring Orthopedics 04/03/24 documented as of this encounter
--- OUTSIDE RECORDS SUMMARY | 2024-11-06 14:16 | XMS_ITS | Encounter Summary ---
Author Organization [facility] Address [address] [place] [address] Care Team Providers Care Housekeeping Worker Name Role Phone Natalia Aguillon APRN.CUFF SETTER OVERLOCK Primary Care Provider Huan Barragan Unavailable Huan Barragan Unavailable Source Comments In the event this information is protected by the Federal Confidentiality of Alcohol and Drug AbusePatient Records regulations: The Federal rules restrict any use of the information to criminally investigate or prosecute any alcohol or drug abuse patient.[facility] Encounter Details Date Type Department Care Team (Late st Contact Info) Description 08/30/2021 Patient Msg Nutrition Therapy [address] [address] Provider, Ccalan nutrition Social History Tobacco Use Types Packs/Day Years [...] often do you attend chur ch or jehovah's witness services? Never 08/06/2020 Do you belong to any clubs o r organizations such as worship groups, unions, fraternal or athletic groups, or [...] Answer Date Recorded PHQ-2 score 1 08/09/2021 [facility] of Occupat ional [facility] - Occupational Stress Questionnaire Answer Date Recorded [...] place to sleep or slept in a senior care (including now)? No 07/21/2021 Area Deprivation Index Answer Date Omid rded National Score (1-100), lower number is lower ri sk 84 08/17/2021 State Score (1-10), lower number is lower risk N ot on file 08/17/2021 Data from: https://www.neighborhoodatlas.medicine.[facility].edu/. Last address used for calculation [address] 08/17/2021 Education Answer Date Recorded What is [...] Exposure Response Date Recorded In the last 10 days, have yo u been in contact with someone who was confirmed or suspected to have Coronavirus/COVID-19? No / Unsure 08/10/2021 9:28 AM EDT documented as of this encounter Functional Status * Are you deaf or do you have serious difficulty hearing? Answer Date of Assessment Author No 10/29/2014 2:34 PM EDT Karissa uHmphrey RN * Are you blind or do [...] on filedocumented in this encounter Care Teams Housekeeping Worker Relationship Specialty Start Date End Date Natalia Aguillon, EM PHYSICIAN.CUFF SETTER OVERLOCK [address] [place] [address] PCP - General Family Medicine 11/23/19 Huan Barragan [address] [place] [address] Referring Orthopedics 03/31/24 Huan Barragan [address] [place] [address] Referring Orthopedics 04/03/24 documented as of this encounter
--- OUTSIDE RECORDS SUMMARY | 2024-11-06 14:16 | XMS_ITS | Encounter Summary ---
Author Organization [facility] Address [address] [place] [id number] Care Team Providers Care Oncology Account Specialist Name Role Phone Natalia Aguillon APRN.INTERACTIVE MEDIA PROJECT MANAGER Primary Care Provider Huan Barragan Unavailable Huan Barragan Unavailable Source Comments In the event this information is protected by the Federal Confidentiality of Alcohol and Drug AbusePatient Records regulations: The Federal rules restrict any use of the information to criminally investigate or prosecute any alcohol or drug abuse patient.[facility] Encounter Details Date Type Department Care Team (Late st Contact Info) Description 01/18/2020 Patient Msg [facility] [address] [place] [id number] Basil Eugene [facility]ESS self-care practices Social History Tobacco Use Types Packs/Day Years Used Date Smoking Tobacco: Never Smokeless Tobacco: Never Alcohol Use Standard Drinks/Week Comments Yes 0 (1 standard drink = 0.6 oz pur e alcohol) Rare Sex and Gender Information Value Date Recorded [...] have Coronavirus / COVID-19? No / Unsure 01/18/2020 8:58 AM EDT documented as of this encounter [...] on filedocumented in this encounter Care Teams Oncology Account Specialist Relationship Specialty Start Date End Date Natalia Aguillon APRN.CNP [address] [place] [address] PCP - General Family Medicine 11/23/19 Huan Barragan [address] [place] [address] Referring Orthopedics 03/31/24 Huan Barragan [address] [place] [address] Referring Orthopedics 04/03/24 documented as of this encounter
--- OUTSIDE RECORDS SUMMARY | 2024-11-06 14:16 | XMS_ITS | Patient Health Record ---
Author Organization [facility] in [place] Address [address] [place] [address] Care Team Providers Care Merchant Banker Name Role Phone Conor Parish Primary Care Provider Kelly Garcia Unavailable [phone] Allergies Allergen (clinical drug ingredient) Drug/Non Drug Allergy documented on EMR Reaction Allergy Type Onset Date Status gabapentin Gabapentin brain fog Drug Allergy Activ e spironolactone Spironolactone chest pain Drug Allergy Active Substance with 5-ywcgcim-3-methylglu taryl-coenzyme A reductase inhibitor mechanism of action (substance) Statins muscleaches Drug Allergy Active Results Component Value Reference Range Notes Prothrombin Time INR Reviewed date:11/11/2023 08:56:01 AM Interpretation: Performing Lab: Notes/Report: [facility] , Prothrombin Time 14.8 9.0-11.6 sec INR 1.45 DESIRED INR: 2.0-3.0 CONDITIONS NOT LISTED BELOW 2.5-3.5 FOR PROSTHETIC HEART VALVE REPLACEMENT 2.5-3.5 RECURRENT THROMBOSIS Performing Lab: see note ML - [facility] LB ITP Reviewed date:01/02/2024 08:34:56 PM Interpretation: Performing Lab: Notes/Report: Source Facility: [facility]-[address] [place] [address] [address] Cardiac Rehab Report Signed Patient: NEHAL BAIG MR#: [id number] : 1970 Acct:[id number] Age/Sex: 53 / M ADM Date: 09/30/23 Loc: CR Attending Dr: SHANELLE ROLLE Ordering Physician: SHANELLE ROLLE Date of Service: 01/01/24 Procedure(s): ITP Accession Number(s): [id number] cc: [facility] Test Date: 2024-01-01 Pat Name: NEHAL BAIG Department: Room: - 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 Order Number: [id number] Jesus MD: JARED MCGRATH Interpretive Statements Session Date: Electronically Signed On 01-02-2024 20:09:12 EDT by JARED MCGRATH Dictated By: Jared Mcgrath D.O. 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 Order Number: [id number] Jesus MD: JARED MCGRATH Interpretive Statements Session Date: Electronically Delaney d On 01-02-2024 20:09:12 EDT by JARED MCGRATH Dictated By: Jared Mcgrath D.O. Signed By: 01/02/24200801/02/242008 DD/ 01 TD/TT: Rn Acls: CBC AUTO DIFF Reviewed date:01/27/2024 08:51:17 PM Interpretation: Performing Lab: Notes/Report: [facility] , White Blood Count 10.6 4.0-11.0 10 3/uL Red Blood Count 5.53 4.70-6.10 10 6/uL Hemoglobin 15.6 14.0-18.0 g/dL Hematocrit 46.4 42.0-54.0 % Mean Corpuscular Volume 83.9 80.0-94.0 fL Mean Corpuscular Hemoglobin 28.2 25.9-34.0 pg Mean Corpuscular HGB Conc 33.6 29.9-35.2 g/dL Red Cell Distribution Width 16.6 11.0-15.0 % Platelet Count 216 150-450 10 3/uL Mean Platelet Volume 10.1 9.5-13.5 fL Neutrophils Percent Auto 75.1 43.0-75.0 % Lymphocytes Percent Auto 14.7 20.5-60.0 % Monocytes Percent Auto 7.9 1.7-12.0 % Eosinophils Percent Auto 1.2 0.9-7.0 % Basophils Percent Auto 0.7 0.2-2.0 % Immature Granulocytes Pct Auto 0.4 0.0-0.5 % Neutrophils Absolute Auto 8.0 1.4-6.5 10 3/uL Lymphocytes Absolute Auto 1.6 1.2-3.8 10 3/uL Monocytes Absolute Auto 0.8 0.3-0.8 10 3/uL Eosinophils Absolute Auto 0.1 0.0-0.7 10 3/uL Basophils Absolute Auto 0.1 0.0-0.1 10 3/uL Immature Granulocytes Abs Auto 0.04 0.00-0.03 10 3/uL Performing Lab: see note ML - [facility] LB CBC AUTO DIFF Reviewed date:02/02/2024 10:54:35 AM Interpretation: Performing Lab: Notes/Report: [facility] , White Blood Count 8.5 4.0-11.0 10 3/uL Red Blood Count 5.42 4.70-6.10 10 6/uL Hemoglobin 15.2 14.0-18.0 g/dL Hematocrit 46.0 42.0-54.0 % Mean Corpuscular Volume 84.9 80.0-94.0 fL Mean Corpuscular Hemoglobin 28.0 25.9-34.0 pg Mean Corpuscular HGB Conc 33.0 29.9-35.2 g/dL Red Cell Distribution Width 16.6 11.0-15.0 % Platelet Count 220 150-450 10 3/uL Mean Platelet Volume 9.7 9.5-13.5 fL Neutrophils Percent Auto 69.7 43.0-75.0 % Lymphocytes Percent Auto 19.1 20.5-60.0 % Monocytes Percent Auto 8.3 1.7-12.0 % Eosinophils Percent Auto 2.0 0.9-7.0 % Basophils Percent Auto 0.7 0.2-2.0 % Immature Granulocytes Pct Auto 0.2 0.0-0.5 % Neutrophils Absolute Auto 5.9 1.4-6.5 10 3/uL Lymphocytes Absolute Auto 1.6 1.2-3.8 10 3/uL Monocytes Absolute Auto 0.7 0.3-0.8 10 3/uL Eosinophils Absolute Auto 0.2 0.0-0.7 10 3/uL Basophils Absolute Auto 0.1 0.0-0.1 10 3/uL Immature Granulocytes Abs Auto 0.02 0.00-0.03 10 3/uL Performing Lab: see note ML - [facility] FREE T3 Reviewed date:02/02/2024 10:54:35 AM Interpretation: Performing Lab: Notes/Report: [facility] , Free T3 2.71 2.18-3.98 pg/mL Performing Lab: see note ML - [facility] GLYCOHEMOGLOBIN A1C Reviewed date:02/02/2024 10:54:35 AM Interpretation: Performing Lab: Notes/Report: [facility] , Glycohemoglobin A1C 5.2 4.5-6.2 % ADA RECOMMENDED LIMIT 4.0 - 6.0 ADA THERAPEUTIC TARGET < 7.0 ACTION SUGGESTED > 7.0 Estimated Average Glucose 103 Performing Lab: see note ML - [facility] LB IRON Reviewed date:02/02/2024 10:54:35 AM Interpretation: Performing Lab: Notes/Report: [facility] , Iron 86.0 65.0-175.0 ug/dL Performing Lab: see note ML - [facility] LB LIPID PROFILE Reviewed date:02/02/2024 10:54:35 AM Interpretation: Performing Lab: Notes/Report: [facility] , Triglycerides 158 <=150 mg/dL Cholesterol 252 <=200 mg/dL HDL Cholesterol 48 40-60 mg/dL > or =60 mg/dl - LOW CARDIOVASCULAR RISK <40 mg/dl - HIGH CARDIOVASCULAR RISK LDL Cholesterol Calculated 173.0 <100 mg/dl OPTIMAL 100-129 mg/dl NEAR OR ABOVE OPTIMAL 130-159 mg/dl BORDERLINE HIGH 160-189 mg/dl HIGH >190 mg/dl VERY HIGH VLDL CHOLESTEROL 31.6 Chol HDL Ratio 5.2 3.3 - 4.4 LOW RISK 4.4 - 7.1 AVERAGE RISK 7.1 - 11.0 MODERATE RISK >11.0 HIGH RISK Performing Lab: see note - [facility] PROF 14(COMP METB) Reviewed date:02/02/2024 10:54:35 AM Interpretation: Performing Lab: Notes/Report: [facility] , Sodium 140 136-145 mmol/L Potassium 4.3 3.5-5.1 mmol/L Chloride 102 98-107 mmol/L Carbon Dioxide 30.4 21.0-32.0 mmol/L Anion Gap 11.9 Glucose 105 74-106 mg/dL Blood Urea Nitrogen 18.0 7.0-18.0 mg/dL Creatinine 0.97 0.70-1.30 mg/dL Estimated GFR ( Nika >60 >=60 mL/min/1.73m 2 Estimated GFR (Non- Magy >60 >=60 mL/min/1.73m 2 BUN Creatinine Ratio 18.6 Calcium 9.2 8.5-10.1 mg/dL Bilirubin Total 0.8 0.2-1.0 mg/dL Aspartate Amino Transferase 15 15-37 U/L Alanine Aminotransferase 28 16-63 U/L Alkaline Phosphatase 69 46-116 U/L Total Protein 7.5 6.4-8.2 g/dL Albumin Level 4.2 3.4-5.0 g/dL Globulin 3.3 Albumin Globulin Ratio 1.3 Performing Lab: see note ML - [facility] LB PSA SCREENING Reviewed date:02/02/2024 10:54:35 AM Interpretation: Performing Lab: Notes/Report: [facility] , Prostate Specific Antigen Scrn 0.53 <=4.00 ng/mL Performing Lab: see note - [facility] T4 Reviewed date:02/02/2024 10:54:35 AM Interpretation: Performing Lab: Notes/Report: [facility] , T4 Thyroxine 8.10 4.50-12.10 ug/dL Performing Lab: see note - [facility] TSH Reviewed date:02/02/2024 10:54:35 AM Interpretation: Performing Lab: Notes/Report: [facility] , Thyroid Stimulating Hormone 1.472 0.358-3.740 uIU/mL Performing Lab: see note ML - [facility] UA RANDOM W or MICROSCOPIC Reviewed date:02/02/2024 10:54:35 AM Interpretation: Performing Lab: Notes/Report: [facility] , Color Urine LT. YELLOW YELLOW Clarity Urine CLEAR CLEAR Specific [place] Urine 1.015 1.005-1.025 pH Urine 6.0 5.0-9.0 Protein Urine NEGATIVE NEG/TRACE mg/dL Glucose Urine UA >=1000 NEGATIVE mg/dL Bilirubin Urine NEGATIVE NEGATIVE Ketones Urine NEGATIVE NEGATIVE mg/dL Blood Urine NEGATIVE NEGATIVE Nitrite Urine NEGATIVE NEGATIVE Urobilinogen Urine 0.2 0.2-1.0 EU/dL Leukocyte Esterase Urine NEGATIVE NEGATIVE WBC Urine 0-2 NONE SEEN #/HPF RBC Urine 0-2 0-2 #/HPF Bacteria Urine TRACE NONE SEEN #/HPF Mucus Urine TRACE NONE SEEN Squamous Epithelial Cell Urine RARE NONE/RARE #/LPF Crystals Seen? None Seen None Seen #/HPF Cast Seen? NONE SEEN NONE SEEN #/LPF Hyaline Casts Urine RARE Urine Culture Indicated ALREADY ORDERED Performing Lab: see note ML - [facility] LB URIC ACID SERUM Reviewed date:02/02/2024 10:54:35 AM Interpretation: Performing Lab: Notes/Report: [facility] , Uric Acid 3.5 3.5-7.2 mg/dL Performing Lab: see note ML - [facility] LB VITAMIN D 25 [place] Reviewed date:02/02/2024 10:54:35 AM Interpretation: Performing Lab: Notes/Report: [facility] , Vitamin D 42.9 <20 ng/mL Vit D deficient 20-<30 ng/mL Vit D insufficient 30-100 ng/mL Vit D sufficient >100 ng/mL Potential Toxicity Performing Lab: see note ML - [facility] LB Vitamin B12 Reviewed date:02/02/2024 02:52:08 PM Interpretation: Performing Lab: Notes/Report: [facility] , Vitamin B12 [phone] pg/mL Performed at: [address] [id number] Simplex Operator: Krzysztof Moyer PhD, Phone: [phone] Performing Lab: see note - [facility] LB Urine Culture, Routine Reviewed date:02/03/2024 07:30:37 PM Interpretation: Performing Lab: Notes/Report: [facility] , Urine Culture, Routine See Below For Report Urine Culture, Routine Urine Culture, Routine Mixed urogenital fito Urine Culture, Routine Urine Culture, Routine Less than 10,000 colonies/mL Urine Culture, Routine Urine Culture, Routine Performed at: [facility] [place] Urine Culture, Routine Urine Culture, Routine [address] [place] [id number] Urine Culture, Routine Urine Culture, Routine Simplex Operator: Deric Moyer PhD, Phone: [phone] Urine Culture, Routine Performing Lab: see note LC - [facility] LB SEE REPORT - Hand Edge Bander Id information not found for 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 Patient Name: NEHAL BAIG MR#: [id number] : 1970 Exam Date: 02/20/2024 Ordering Doctor: KELLY GARCIA [facility] ECHOCARD[facility]GRAM REPORT PROCEDURE: CA ECHO DOPPLER COMPLETE INDICATIONS: Fatigue COMPARISON: None. DESCRIPTION: COMPLETE ECHOCARDIOGRAM Real-time transthoracic echocardiography with 2D, M-mode, spectral and color flow Doppler performed. QUALITY: Technical quality was limited. LEFT VENTRICLE: Normal chamber size. Borderline left ventricular hypertrophy. Systolic function is difficult to assess due to poor endocardial border definition but appears preserved. LV EF: Normal left ventricular ejection fraction, (55%). DIASTOLIC: ATRIAL SEPTUM: LEFT ATRIUM: Mild dilatation. RIGHT ATRIUM: Normal chamber size. RIGHT VENTRICLE: Normal chamber size. Normal right ventricular systolic function. TRICUSPID VALVE: Normal mobility and thickness. No stenosis with trivial regurgitation. No evidence of pulmonary hypertension. RVSP 22 mmHg MITRAL VALVE: Normal mobility and thickness. No evidence of mitral valve stenosis. There is no mitral annular calcification. Trivial mitral regurgitation. AORTIC VALVE: Bileaflet mechanical valve well seated in the aortic position with normal leaflet motion and normal doppler flow. No aortic regurgitation. Mean gradient 9.4 mmHg. AORTIC ROOT: Normal diameter and appearance. PULMONIC VALVE: Normal thickness and mobility. No stenosis. No regurgitation. PERICARDIUM: No evidence of pericardial effusion. IVC: Collapses with inspirations. Mild dilatation measuring 2.2 cm. PLEURA: CONCLUSION: 1. Borderline left ventricular hypertrophy. Systolic function is difficult to assess due to poor endocardial border definition but appears preserved. Estimated LVEF is 55%. 2. Normal right ventricular size and systolic function. 3. Bileaflet mechanical valve is well-seated in the aortic position with normal Doppler flows and no regurgitation. 4. Normal right-sided pressures. 5. No pericardial effusion. Adult Echocardiography Procedure Report Left Ventricle LVEDD (3.7 - 5.6 cm): 5.40 cm LVESD (2.2 - 4.0 cm): 4.28 cm LVIVS thickness (0.6 - 1.2 cm): 0.96 cm LVPW thickness (0.5 - 1.0 cm): 1.06 cm e': 0.11 m/s E - e': 9.17 LVOT Max Gradient: 1.40 mm[Hg] LVOT Area (cm2): 0.59 m/s Peak Velocity (LVOT): 0.59 m/s Mean Velocity (LVOT): 0.40 m/s LVOT Diameter 1.94 cm Left Ventricular Ejection Fraction: 55 % Left Atrium LA Volume Index (2D A2C): 24.46 ml/m2 Left Atrium Systolic Dimension: 3.91 cm Mitral Valve MV E to A Ratio: 2.34 Mitral Valve A-Wave Peak Velocity: 0.42 m/s Mitral Valve E-Wave Peak Velocity: 0.98 m/s Right Ventricle RV Internal Diastolic Dimension: 3.68 cm Aorta AO Root Diam: 2.88 cm Ascending Ao Diam: 3.28 cm Aortic Valve AoV Area (Peak Derik): 0.91 cm2, 0.89 cm2, 286.63 cm2, 286.63 cm2 AoV Area (VTI): 1.00 cm2, 0.91 cm2 Peak Velocity(Antegrade Flow): 1.97 m/s, 1.89 m/s, 0.01 m/s Peak Gradient(Antegrade Flow): 0.00 mm[Hg], 15.51 mm[Hg], 14.29 mm[Hg] Mean Velocity(Antegrade Flow): 1.46 m/s, 1.29 m/s Mean Gradient(Antegrade Flow): 9.38 mm[Hg], 7.43 mm[Hg] Velocity Time Integral: 42.10 cm, 34.18 cm Tricuspid Valve Peak Velocity (Regurgitant Flow): 1.86 m/s, 1.86 m/s Pulmonic Valve Peak Velocity: 0.86 m/s Peak Gradient: 2.39 mm[Hg], 3.57 mm[Hg] Right Atrium Right Atrium Systolic Pressure: 47.63 ml, 47.63 ml Dictated by: Shanelle Rolle M.D. on 02/20/2024 at 20:17 Approved by: Shanelle Rolle M.D. on 02/20/2024 at 20:26 Dictated By: SHANELLE ROLLE Signed By: 02/20/242026 DD/ 25 TD/TT: Rn Acls: [place] [address] Cardiology Report Signed Patient: NEHAL BAIG MR#: [id number] : 1970 Acct:[id number] Age/Sex: 53 / M ADM Date: 02/20/24 Loc: CARD Attending Dr: KELLY GARCIA Ordering Physician: KELLY GARCIA Date of Service: 02/20/24 Procedure(s): CA ech o doppler complete Accession Number(s): [id number] cc: KELLY GARCIA ; Chandrakant Parish M.D. Patient Name: NEHAL BAIG MR#: [id number] : 1970 Exam Date: 02/20/2024 Ordering Doctor: ZENY GARCIA PRINCIPAL SYSTEM SOFTWARE ENGINEER ECHOCARDIOGRAM REPORT PROCEDURE: CA ECHO DOPPLER COMPLETE INDICATIONS: Fatigue COMPARISON: None. DESCRIPTION: COMPLET E ECHOCARDIOGRAM Real-time transthoracic echocardiography wit h 2D, M-mode, spectral and color flow Doppler performed. QUALITY: Technical quality was limited. LEFT VENTRICLE: Norm al chamber size. Borderline left ventricular hypertrophy. Systol ic function is difficult to assess due to poor endocardial border definition bu t appears preserved. LV EF: Normal left ventricular ejection fraction, (55%). DIASTOLIC: ATRIAL SEPTUM: LEFT ATRIUM: Mild dilatation. RIGHT ATRIUM: Normal chamber size. RIGHT VENTRICLE: Nor mal chamber size. Normal right ventricular systolic function. TRICUSPID VALVE: Nor mal mobility and thickness. No stenosis with trivial regurgitation. No evidence of pulmonary hypertension. RVSP 22 mmHg MITRAL VALVE: Normal mobility and thickness. No evidence of mitral valve stenosis. There is n o mitral annular calcification. Trivial mitral regurgitation. AORTIC VALVE: Bileaf let mechanical valve well seated in the aortic position with normal leaflet motion and normal doppler flow. No aortic regurgitation. Mean gradient 9.4 mmHg. AORTIC ROOT: Normal diameter and appearance. PULMONIC VALVE: Norm al thickness and mobility. No stenosis. No regurgitation. PERICARDIUM: No evid ence of pericardial effusion. IVC: Collapses with inspirations. Mild dilatation measuring 2.2 cm. PLEURA: CONCLUSION: 1. Borderline left ventricular hypertrophy. Systolic function is difficult to assess due to poor endocardial border definition but appears preserved. Estimated LVEF is 55%. 2. Normal right ventricular size and systolic function. 3. Bileaflet mechani henny valve is well-seated in the aortic position with normal Doppler flows and no regurgitation. 4. Normal right-side d pressures. 5. No pericardial effusion. Adult Echocardiograp hy Procedure Report Left Ventricle LVEDD (3.7 - 5.6 cm) : 5.40 cm LVESD (2.2 - 4.0 cm) : 4.28 cm LVIVS thickness (0.6 - 1.2 cm): 0.96 cm LVPW thickness (0.5 - 1.0 cm): 1.06 cm e': 0.11 m/s E - e': 9.17 LVOT Max Gradient: 1 .40 mm[Hg] LVOT Area (cm2): 0.59 m/s Peak Velocity (LVOT) : 0.59 m/s Mean Velocity (LVOT) : 0.40 m/s LVOT Diameter 1.94 cm Left Ventricular Eje ction Fraction: 55 % Left Atrium LA Volume Index (2D A2C): 24.46 ml/m2 Left Atrium Systolic Dimension: 3.91 cm Mitral Valve MV E to A Ratio: 2.34 Mitral Valve A-Wave Peak Velocity: 0.42 m/s Mitral Valve E-Wave Peak Velocity: 0.98 m/s Right Ventricle RV Internal Diastoli c Dimension: 3.68 cm Aorta AO Root Diam: 2.88 cm Ascending Ao Diam: 3 .28 cm Aortic Valve AoV Area (Peak Derik): 0.91 cm2, 0.89 cm2, 286.63 cm2, 286.63 cm2 AoV Area (VTI): 1.00 cm2, 0.91 cm2 Peak Velocity(Antegr consuelo Flow): 1.97 m/s, 1.89 m/s, 0.01 m/s Peak Gradient(Antegr consuelo Flow): 0.00 mm[Hg], 15.51 mm[Hg], 14.29 mm[Hg] Mean Velocity(Antegr consuelo Flow): 1.46 m/s, 1.29 m/s Mean Gradient(Antegr consuelo Flow): 9.38 mm[Hg], 7.43 mm[Hg] Velocity Time Integr al: 42.10 cm, 34.18 cm Tricuspid Valve Peak Velocity (Regurgitant Flow): 1.86 m/s, 1.86 m/s Pulmonic Valve Peak Velocity: 0.86 m/s Peak Gradient: 2.39 mm[Hg], 3.57 mm[Hg] Right Atrium Right Atrium Systoli c Pressure: 47.63 ml, 47.63 ml Dictated by: Shanelle Rolle M.D. on 02/20/2024 at 20:17 Approved by: Shanelle Rolle M.D. on 02/20/2024 at 20:26 Dictated By: SHANELLE ROLLE Signed By: 02/20/242026 DD/ 25 TD/TT: Rn Acls: PROF Watts(COMP METB) Reviewed date:06/25/2024 07:49:41 PM Interpretation: Performing Lab: Notes/Report: [facility] , Sodium 140 136-145 mmol/L Potassium 4.0 3.5-5.1 mmol/L Chloride 100 98-107 mmol/L Carbon Dioxide 32.2 21.0-32.0 mmol/L Anion Gap 11.8 Glucose 82 74-106 mg/dL Blood Urea Nitrogen 20.0 7.0-18.0 mg/dL Creatinine 1.11 0.70-1.30 mg/dL Estimated GFR ( Nika >60 >=60 mL/min/1.73m 2 Estimated GFR (Non- Magy >60 >=60 mL/min/1.73m 2 BUN Creatinine Ratio 18.0 Calcium 8.9 8.5-10.1 mg/dL Bilirubin Total 0.5 0.2-1.0 mg/dL Aspartate Amino Transferase 12 15-37 U/L Alanine Aminotransferase 22 16-63 U/L Alkaline Phosphatase 84 46-116 U/L Total Protein 7.9 6.4-8.2 g/dL Albumin Level 4.5 3.4-5.0 g/dL Globulin 3.4 Albumin Globulin Ratio 1.3 Performing Lab: see note - [facility] Troponin I High Sensitivity Reviewed date:06/25/2024 07:49:41 PM Interpretation: Performing Lab: Notes/Report: [facility] , Troponin I High Sensitivity 5.5 4.0-76.1 pg/mL CUT-OFF POINTS HAVE BEEN ESTABLISHED BASED ON THE FOURTH UNIVERSAL DEFINITION OF MYOCARDIAL INFARCTION. THE UPPER REFERENCE LIMIT (URL) OF TROPONIN, DEFINED THE 99TH PERCENTILE OF cTnI DISTRIBUTION IN A REFERENCE POPULATION, HAS BEEN CONFIRMED THE DECISION THRESHOLD FOR [place] DIAGNOSIS. 99TH PERCENTILE = 76.2 PG/ML NOTE: HIGH-SENSITIVITY TROPONIN ASSAY IS NOT INTENDED TO BE USED IN ISOLATION BUT SHOULD BE INTERPRETED IN CONJUNCTION WITH OTHER DIAGNOSTIC AND CLINICAL INFORMATION. Performing Lab: see note ML - [facility] LB Prothrombin Time INR Reviewed date:06/25/2024 07:49:41 PM Interpretation: Performing Lab: Notes/Report: [facility] , Prothrombin Time 15.9 9.0-11.6 sec INR 1.57 DESIRED INR: 2.0-3.0 CONDITIONS NOT LISTED BELOW 2.5-3.5 FOR PROSTHETIC HEART VALVE REPLACEMENT 2.5-3.5 RECURRENT THROMBOSIS Performing Lab: see note [facility] CBC AUTO DIFF Reviewed date:06/25/2024 07:49:41 PM Interpretation: Performing Lab: Notes/Report: [facility] , White Blood Count 9.4 4.0-11.0 10 3/uL Red Blood Count 5.97 4.70-6.10 10 6/uL Hemoglobin 16.6 14.0-18.0 g/dL Hematocrit 49.8 42.0-54.0 % Mean Corpuscular Volume 83.4 80.0-94.0 fL Mean Corpuscular Hemoglobin 27.8 25.9-34.0 pg Mean Corpuscular HGB Conc 33.3 29.9-35.2 g/dL Red Cell Distribution Width 14.0 11.0-15.0 % Platelet Count 235 150-450 10 3/uL Mean Platelet Volume 10.4 9.5-13.5 fL Neutrophils Percent Auto 73.1 43.0-75.0 % Lymphocytes Percent Auto 14.8 20.5-60.0 % Monocytes Percent Auto 9.9 1.7-12.0 % Eosinophils Percent Auto 1.3 0.9-7.0 % Basophils Percent Auto 0.6 0.2-2.0 % Immature Granulocytes Pct Auto 0.3 0.0-0.5 % Neutrophils Absolute Auto 6.9 1.4-6.5 10 3/uL Lymphocytes Absolute Auto 1.4 1.2-3.8 10 3/uL Monocytes Absolute Auto 0.9 0.3-0.8 10 3/uL Eosinophils Absolute Auto 0.1 0.0-0.7 10 3/uL Basophils Absolute Auto 0.1 0.0-0.1 10 3/uL Immature Granulocytes Abs Auto 0.03 0.00-0.03 10 3/uL Performing Lab: see note ML - [facility] LB BNP Reviewed date:06/25/2024 07:49:41 PM Interpretation: Performing Lab: Notes/Report: [facility] , NT Pro B Type Natriuretic Pept 30.0 <=900.0 pg/mL Performing Lab: see note ML - [facility] LB Prothrombin Time INR Reviewed date:06/22/2024 08:50:30 PM Interpretation: Performing Lab: Notes/Report: [facility] , Prothrombin Time 15.9 9.0-11.6 sec INR 1.57 DESIRED INR: 2.0-3.0 CONDITIONS NOT LISTED BELOW 2.5-3.5 FOR PROSTHETIC HEART VALVE REPLACEMENT 2.5-3.5 RECURRENT THROMBOSIS Performing Lab: see note ML - [facility] LB US right upper quadrant Reviewed date:04/15/2024 07:05:14 PM Interpretation: Performing Lab: Notes/Report: Source Facility: [place] [address] Ultrasound Report Signed Patient: NEHAL BAIG MR#: [id number] : 1970 Acct:[id number] Age/Sex: 53 / M ADM Date: 04/14/24 Loc: US Attending Dr: Chandrakant Parish M.D. Ordering Physician: Chandrakant Praish M.D. Date of Service: 04/14/24 Procedure(s): US right upper quadrant Accession Number(s): [id number] cc: Chandrakant Parish M.D. [place] [address] Patient Name: NEHAL BAIG MRN: [facility]:[id number] date: 1970 Sex: M Assigned Patient Location: US Current Patient Location: Accession/Order Number: [id number] Exam Date: 04/14/2024 18:08 Report Date: 04/15/2024 04:45 At the request of: CHANDRAKANT PARISH Procedure: US right upper quadrant EXAMINATION: US right upper quadrant HISTORY: HEPATOMEGALY R16.0 COMPARISON: Ultrasound right upper quadrant 02/08/2024 TECHNIQUE: Transabdominal evaluation of the right upper quadrant. FINDINGS: LIVER: Slightly prominent, 18.3 cm, relatively normal echotexture. Color Doppler demonstrates patent hepatic veins. PORTAL VEIN: Duplex Doppler demonstrates normal hepatopetal flow pattern with flow velocity averaging 29 cm/s. GALLBLADDER: No visible gallstones, wall thickening, or pericholecystic free fluid. Negative sonographic Santana's sign. BILIARY: No abnormal dilation or stones. Common bile duct diameter is within normal limits. PANCREAS: Limited evaluation. No visible mass, abnormal atrophy, or duct dilation. KIDNEY: No hydronephrosis. No visible mass or stones. Size: 11.9 x 5.5 x 5.4 cm US/US right upper quadrant IMPRESSION: 1. Slightly prominent liver; nonspecific. 2. Otherwise unremarkable right upper quadrant ultrasound. Electronically authenticated by: KAHLIL DONALDSON Date: 04/15/2024 04:45 Dictated By: Kahlil Donaldson M.D. Signed By: 04/15/24447 DD/ 4 TD/TT: Rn Acls: [place] [address] Ultrasound Report Signed Patient: NEHAL BAIG MR#: [id number] : 1970 Acct:[id number] Age/Sex: 53 / M ADM Date: 04/14/24 Loc: US Attending Dr: Josseline Parish M.D. Ordering Physician: Chandrakant Parish M.D. Date of Service: 04/14/24 Procedure(s): US rig upper quadrant Accession Number(s): [id number] cc: Chandrakant Parish M.D. [place] [address] Patient Name: NEHAL BAIG MRN: [id number] date: 1970 Sex: M Assigned Patient Location: US Current Patient Location: Accession/Order Numb er: [id number] Exam Date: 04/14/2024 18:08 Report Date: 04/15/2024 04:45 At the request of: CHANDRAKANT PARISH Procedure: US right upper quadrant EXAMINATION: US rig t upper quadrant HISTORY: HEPATOMEGAL Y R16.0 COMPARISON: Ultrasou nd right upper quadrant 02/08/2024 TECHNIQUE: Transabdo perfecto evaluation of the right upper quadrant. FINDINGS: LIVER: Slightly prominent, 18.3 cm, relatively normal echotexture. Color Doppler demonstrates patent hepatic veins. PORTAL VEIN: Duplex Doppler demonstrates normal hepatopetal flow pattern with flow velocity averag ing 29 cm/s. GALLBLADDER: No visi ble gallstones, wall thickening, or pericholecystic free fluid. Negative sonographic Santana's sign. BILIARY: No abnormal dilation or stones. Common bile duct diameter is within normal limits. PANCREAS: Limited evaluation. No visible mass, abnormal atrophy, or duct dilation. KIDNEY: No hydronephrosis. No visible mass or stones. Size: 11.9 x 5.5 x 5.4 cm U S/US right upper quadrant IMPRESSION: 1. Slightly prominen t liver; nonspecific. 2. Otherwise unremar kable right upper quadrant ultrasound. Electronically authenticated by: KAHLIL DONALDSON Date: 04/15/2024 04:45 Dictated By: Kahlil Donaldson M.D. Signed By: 04/15/24447 DD/ 4 TD/TT: Rn Acls: Prothrombin Time INR Reviewed date:04/05/2024 05:30:55 PM Interpretation: Performing Lab: Notes/Report: [facility] , Prothrombin Time 27.5 9.0-11.6 sec INR 2.88 DESIRED INR: 2.0-3.0 CONDITIONS NOT LISTED BELOW 2.5-3.5 FOR PROSTHETIC HEART VALVE REPLACEMENT 2.5-3.5 RECURRENT THROMBOSIS Performing Lab: see note ML - [facility] LB TSH Reviewed date:04/05/2024 05:30:55 PM Interpretation: Performing Lab: Notes/Report: [facility] , Thyroid Stimulating Hormone 1.634 0.358-3.740 uIU/mL Performing Lab: see note ML - [facility] LB FREE T4 Reviewed date:04/05/2024 05:30:55 PM Interpretation: Performing Lab: Notes/Report: [facility] , Free T4 0.99 0.76-1.46 ng/dL Performing Lab: see note ML - [facility] LB US right upper quadrant Reviewed date:02/10/2024 01:23:46 PM Interpretation: Performing Lab: Notes/Report: Source Facility: [place] [address] [place] [address] Ultrasound Report Signed Patient: NEHAL BAIG MR#: [id number] : 1970 Acct:[id number] Age/Sex: 53 / M ADM Date: 02/08/24 Loc: US Attending Dr: KELLY GARCIA Ordering Physician: KELLY GARCIA Date of Service: 02/08/24 Procedure(s): US right upper quadrant Accession Number(s): [id number] cc: KELLY GARCIA ; Chandrakant Parish M.D. The [address] [id number] Patient Name: NEHAL BAIG MRN: [id number] date: 1970 Sex: M Assigned Patient Location: US Current Patient Location: Accession/Order Number: [id number] Exam Date: 02/08/2024 08:06 Report Date: 02/10/2024 08:27 At the request of: KELLY GARCIA Procedure: US right upper quadrant EXAM: US right upper quadrant HISTORY: . RUQ ABDOMINAL PAIN R10.11 COMPARISON: None. TECHNIQUE: Grayscale and color imaging was performed FINDINGS: The pancreas was obscured due to overlying bowel gas. The liver is prominent in size measuring 19 cm. No masses are noted. Color-flow is noted in the portal and hepatic veins. The gallbladder appears normal with no stones or sludge identified. No gallbladder wall thickening is noted. Common bile duct measures 5 mm. Right kidney measures 12 x 5.1 x 5.3 cm. No solid renal cortical masses or hydronephrosis was noted. No fluid was noted in the right upper quadrant. US/US right upper quadrant IMPRESSION: 1. The liver was prominent in size measuring 19 cm. No masses were noted. 2. The pancreas was obscured due to overlying bowel gas. 3. The remainder the right upper quadrant was unremarkable. Electronically authenticated by: KINGSLEY BARRAGAN Date: 02/10/2024 08:27 Dictated By: Kingsley Barragan M.D. Signed By: 02/10/24828 DD/ 6 TD/TT: Rn Acls: [place] [address] Ultrasound Report Signed Patient: NEHAL BAIG MR#: [id number] : 1970 Acct:[id number] Age/Sex: 53 / M ADM Date: 02/08/24 Loc: US Attending Dr: KELLY GARCIA Ordering Physician: KELLY GARCIA Date of Service: 02/08/24 Procedure(s): US rig ht upper quadrant Accession Number(s): [id number] cc: KELLY GARCIA ; Chandrakant Parish M.D. [place] [id number] Patient Name: NEHAL BAIG MRN: [id number] date: 1970 Sex: M Assigned Patient Location: US Current Patient Location: Accession/Order Numb er: [id number] Exam Date: 08:06 Report Date: 02/10/2024 08:27 At the request of: KELLY GARCIA Procedure: US right upper quadrant EXAM: US right upper quadrant HISTORY: . RUQ ABDOM INAL PAIN R10.11 COMPARISON: None. TECHNIQUE: Grayscale and color imaging was performed FINDINGS: The pancre as was obscured due to overlying bowel gas. The liver is prominent in size measuring 19 cm. No masses are noted. Color-flow is noted in the portal and hepat ic veins. The gallbladder appe ars normal with no stones or sludge identified. No gallbladder wall thickening is noted. Common bile duct clau sures 5 mm. Right kidney measure s 12 x 5.1 x 5.3 cm. No solid renal cortical masses or hydronephrosis was noted. No fluid was noted i n the right upper quadrant. U S/US right upper quadrant IMPRESSION: 1. The liver was prominent in size measuring 19 cm. No masses were noted. 2. The pancreas was obscured due to overlying bowel gas. 3. The remainder the right upper quadrant was unremarkable. Electronically authenticated by: KINGSLEY BARRAGAN Date: 02/10/2024 08:27 Dictated By: Dominik Barragan M.D. Signed By: 02/10/24828 DD/ 6 TD/TT: Rn Acls: Occult Blood* Reviewed date:02/06/2024 07:32:37 PM Interpretation: Performing Lab: Notes/Report: [facility] , Occult Blood Positive Performing Lab: see note ML - [facility] LB INSULIN Reviewed date:02/03/2024 07:30:37 PM Interpretation: Performing Lab: Notes/Report: [facility] , Insulin 22.7 2.6-24.9 uIU/mL Performed at: - [facility] [id number] [employer]plex Operator: Krzysztof Moyer PhD, Phone: [phone] Performing Lab: see note LC - [facility] LB XR chest 2V Reviewed date:01/27/2024 08:51:17 PM Interpretation: Performing Lab: Notes/Report: Source Facility: [place] [address] [place] [address] XRay Report Signed Patient: NEHAL BAIG MR#: [id number] : 1970 Acct:[id number] Age/Sex: 53 / M ADM Date: 01/27/24 Loc: ER Attending Dr: Ordering Physician: Jose Orourke Date of Service: 01/27/24 Procedure(s): XR chest 2V Accession Number(s): [id number] cc: Chandrakant Parish M.D.; Jose Orourke [place] [address] Patient Name: NEHAL BAIG MRN: [id number] date: 1970 Sex: M Assigned Patient Location: ER Current Patient Location: ER Accession/Order Number: [id number] Exam Date: 01/27/2024 17:12 Report Date: 01/27/2024 17:48 At the request of: JOSE OROURKE Procedure: XR chest 2V EXAM: XR chest 2V HISTORY: cp COMPARISON: 08/17/2023 TECHNIQUE: Upright PA and lateral chest x-ray FINDINGS: The heart is not enlarged and the vasculature is not distended. Hardware is in place from sternotomy. No acute infiltrate, effusion or pneumothorax is identified. 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 The osseous structures are grossly intact. XR/XR chest 2V IMPRESSION: No acute infiltrate or evidence of cardiac decompensation. There is evidence of prior surgery, and the overall appearance of the chest is essentially unchanged. Electronically authenticated by: TOMER HALL Date: 01/27/2024 17:48 Dictated By: Tomer Hall M.D. Signed By: 01/27/241749 DD/ 47 TD/TT: Rn Acls: [place] [address] XRay Report Signed Patient: NEHAL BAIG MR#: [id number] : 1970 Acct:[id number] Age/Sex: 53 / M ADM Date: 01/27/24 Loc: ER Attending Dr: Ordering Physician: Jose Orourke Date of Service: 01/27/24 Procedure(s): XR chest 2V Accession Number(s): [id number] cc: Chandrakant Parish M.D. ; Jose Orourke [place] [address] Patient Name: NEHAL BAIG MRN: [facility]:[id number] date: 1970 Sex: M Assigned Patient Location: ER Current Patient Loca tion: ER Accession/Order Numb er: [id number] Exam Date: 17:12 Report Date: 01/27/2024 17:48 At the request of: JOSE OROURKE Procedure: XR chest 2V EXAM: XR chest 2V HISTORY: cp COMPARISON: 08/17/2023 TECHNIQUE: Upright P A and lateral chest x-ray FINDINGS: The heart is not enlarged and the vasculature is not distended. Hardware is in place from sternotomy. No acute infiltrate, effusion or pneumothorax is identified. 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 The osseous structures are gross ly intact. X R/XR chest 2V IMPRESSION: No acute infiltrate or evidence of cardiac decompensation. There is evidence of prior surgery, and t he overall appearance of the chest is essentially unchanged. Electronically authenticated by: TOMER HALL Date: 01/27/2024 17:48 Dictated By: Francisco Hall M.D. 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 Signed By: 01/28/248 DD/ 1644 TD/TT: Rn Acls: Troponin I High Sensitivity Reviewed date:01/27/2024 08:51:17 PM Interpretation: Performing Lab: Notes/Report: [facility] , Troponin I High Sensitivity 4.9 4.0-76.1 pg/mL CUT-OFF POINTS HAVE BEEN ESTABLISHED BASED ON THE FOURTH UNIVERSAL DEFINITION OF MYOCARDIAL INFARCTION. THE UPPER REFERENCE LIMIT (URL) OF TROPONIN, DEFINED THE 99TH PERCENTILE OF cTnI DISTRIBUTION IN A REFERENCE POPULATION, HAS BEEN CONFIRMED THE DECISION THRESHOLD FOR [place] DIAGNOSIS. 99TH PERCENTILE = 76.2 PG/ML NOTE: HIGH-SENSITIVITY TROPONIN ASSAY IS NOT INTENDED TO BE USED IN ISOLATION BUT SHOULD BE INTERPRETED IN CONJUNCTION WITH OTHER DIAGNOSTIC AND CLINICAL INFORMATION. Performing Lab: see note ML - [facility] LB UA RANDOM W or MICROSCOPIC Reviewed date:01/27/2024 08:51:17 PM Interpretation: Performing Lab: Notes/Report: [facility] , Color Urine LT. YELLOW YELLOW Clarity Urine CLEAR CLEAR Specific [place] Urine 1.025 1.005-1.025 pH Urine 6.0 5.0-9.0 Protein Urine NEGATIVE NEG/TRACE mg/dL Glucose Urine UA >=1000 NEGATIVE mg/dL Bilirubin Urine NEGATIVE NEGATIVE Ketones Urine NEGATIVE NEGATIVE mg/dL Blood Urine NEGATIVE NEGATIVE Nitrite Urine NEGATIVE NEGATIVE Urobilinogen Urine 0.2 0.2-1.0 EU/dL Leukocyte Esterase Urine NEGATIVE NEGATIVE WBC Urine 0-2 NONE SEEN #/HPF RBC Urine 0-2 0-2 #/HPF Bacteria Urine NONE SEEN NONE SEEN #/HPF Mucus Urine NONE SEEN NONE SEEN Squamous Epithelial Cell Urine MODERATE NONE/RARE #/LPF Crystals Seen? None Seen None Seen #/HPF Cast Seen? NONE SEEN NONE SEEN #/LPF Performing Lab: see note ML - [facility] LB PROF 14(COMP METB) Reviewed date:01/27/2024 08:51:17 PM Interpretation: Performing Lab: Notes/Report: [facility] , Sodium 141 136-145 mmol/L Potassium 4.5 3.5-5.1 mmol/L Chloride 103 98-107 mmol/L Carbon Dioxide 29.0 21.0-32.0 mmol/L Anion Gap 13.5 Glucose 86 74-106 mg/dL Blood Urea Nitrogen 22.0 7.0-18.0 mg/dL Creatinine 1.07 0.70-1.30 mg/dL Estimated GFR ( Nika >60 >=60 mL/min/1.73m 2 Estimated GFR (Non- Magy >60 >=60 mL/min/1.73m 2 BUN Creatinine Ratio 20.6 Calcium 9.9 8.5-10.1 mg/dL Bilirubin Total 0.6 0.2-1.0 mg/dL Aspartate Amino Transferase 10 15-37 U/L Alanine Aminotransferase 21 16-63 U/L Alkaline Phosphatase 74 46-116 U/L Total Protein 7.6 6.4-8.2 g/dL Albumin Level 4.3 3.4-5.0 g/dL Globulin 3.3 Albumin Globulin Ratio 1.3 Performing Lab: see note - [facility] LB LIPASE Reviewed date:01/27/2024 08:51:17 PM Interpretation: Performing Lab: Notes/Report: [facility] , Lipase 57.0 16.0-77.0 U/L Performing Lab: see note - [facility] Prothrombin Time INR Reviewed date:11/25/2023 06:23:27 PM Interpretation: Performing Lab: Notes/Report: [facility] , Prothrombin Time 18.7 9.0-11.6 sec INR 1.88 DESIRED INR: 2.0-3.0 CONDITIONS NOT LISTED BELOW 2.5-3.5 FOR PROSTHETIC HEART VALVE REPLACEMENT 2.5-3.5 RECURRENT THROMBOSIS Performing Lab: see note - [facility] CA echo doppler complete Reviewed date:11/10/2023 10:09:12 AM Interpretation: Performing Lab: Notes/Report: Source Facility: [place] [address] [place] [address] Cardiology Report Signed Patient: NEHAL BAIG MR#: [id number] : 1970 Acct:[id number] Age/Sex: 53 / M ADM Date: 11/07/23 Loc: CARD Attending Dr: Zina Sandoval M.D. Ordering Physician: Zina Sandoval M.D. Date of Service: 11/07/23 Procedure(s): CA echo doppler complete Accession Number(s): [id number] cc: Zina Sandoval M.D.; Chandrakant Parish M.D. Patient Name: NEHAL BAIG MR#: [id number] : 1970 Exam Date: 11/07/2023 Ordering Doctor: DR ZINA SANDOVAL M.D. ECHOCARDIOGRAM REPORT PROCEDURE: CA ECHO DOPPLER COMPLETE INDICATIONS: Pericardial effusion, aortic valve replacement COMPARISON: None. DESCRIPTION: COMPLETE ECHOCARDIOGRAM Real-time transthoracic echocardiography with 2D, M-mode, spectral and color flow Doppler performed. QUALITY: Technical quality was limited. LEFT VENTRICLE: Normal chamber size. Borderline left ventricular hypertrophy. Normal systolic function. Abnormal septal motion, commonly seen post open heart surgery. LV EF: Normal left ventricular ejection fraction, (>55%). DIASTOLIC: Diastolic function is indeterminate. ATRIAL SEPTUM: LEFT ATRIUM: Mild dilatation. RIGHT ATRIUM: Mild dilatation. RIGHT VENTRICLE: Normal chamber size. Normal right ventricular systolic function. TRICUSPID VALVE: Normal mobility and thickness. No stenosis with trivial regurgitation. Doppler studies reveal mildly (35-45) elevated right sided pressures. RVSP 41 mmHg MITRAL VALVE: Mildly thickened with normal mobility. No evidence of mitral valve stenosis. There is no mitral annular calcification. Trivial mitral regurgitation. AORTIC VALVE: Bio-Prosthetic valve appears well seated in the aortic position with normal doppler flow. No aortic regurgitation. AORTIC ROOT: Normal diameter and appearance. PULMONIC VALVE: Not well visualized. No stenosis. No regurgitation. PERICARDIUM: No evidence of pericardial effusion. IVC: IVC is dilated (2.3 cm), does not fully collapse. PLEURA: CONCLUSION: 1. The left ventricle is normal in size and appears to exhibit normal systolic function. LVEF is estimated at 55%. 2. Normal right ventricular size and systolic function. 3. Mild biatrial dilatation. 4. Bioprosthetic aortic valve is well-seated with normal function and no regurgitation. 5. Mildly elevated right-sided pressures. 6. No pericardial effusion. 7. Technically difficult study with poor sound transmission. Adult Echocardiography Procedure Report Left Ventricle LVEDD (3.7 - 5.6 cm): 5.54 cm LVESD (2.2 - 4.0 cm): 2.95 cm LVIVS thickness (0.6 - 1.2 cm): 0.98 cm LVPW thickness (0.5 - 1.0 cm): 1.14 cm e': 0.10 m/s E - e': 9.90 LVOT Max Gradient: 1.82 mm[Hg] LVOT Area (cm2): 0.67 m/s Peak Velocity (LVOT): 0.67 m/s Mean Velocity (LVOT): 0.46 m/s LVOT Diameter 2.68 cm Left Atrium LA Volume Index (2D A2C): 30.91 ml/m2 Left Atrium Systolic Dimension: 4.20 cm Mitral Valve MV E to A Ratio: 1.59 Mitral Valve A-Wave Peak Velocity: 0.61 m/s Mitral Valve E-Wave Peak Velocity: 0.96 m/s Right Ventricle Aorta AO Root Diam: 3.21 cm Aortic Valve AoV Area (Peak Derik): 2.34 cm2, 2.34 cm2 AoV Area (VTI): 2.85 cm2, 2.85 cm2 Peak Velocity(Antegrade Flow): 1.63 m/s Peak Gradient(Antegrade Flow): 10.64 mm[Hg] Mean Velocity(Antegrade Flow): 1.14 m/s Mean Gradient(Antegrade Flow): 5.88 mm[Hg] Velocity Time Integral: 29.72 cm Tricuspid Valve Peak Velocity (Regurgitant Flow): 2.54 m/s Pulmonic Valve Peak Velocity: 0.62 m/s Peak Gradient: 1.52 mm[Hg] Right Atrium Right Atrium Systolic Pressure: 77.50 ml, 77.50 ml Dictated by: Shanelle Rolle M.D. on 11/07/2023 at 19:57 Approved by: Shanelle Rolle M.D. on 11/07/2023 at 20:03 Dictated By: SHANELLE ROLLE Signed By: 11/07/232003 DD/ 02 TD/TT: Rn Acls: [place] [address] Cardiology Report Signed Patient: NEHAL BAIG MR#: [id number] : 1970 Acct:[id number] Age/Sex: 53 / M ADM Date: 11/07/23 Loc: CARD Attending Dr: Zina Sandoval M.D. Ordering Physician: Zina Sandoval M.D. Date of Service: 11/07/23 Procedure(s): CA ech o doppler complete Accession Number(s): [id number] cc: Zina Sandoval; Chandrakant Parish M.D. Patient Name: NEHAL BAIG MR#: [id number] : 1970 Exam Date: 11/07/2023 Ordering Doctor: DR ZINA SANDOVAL M.D. ECHOCARDIOGRAM REPORT PROCEDURE: CA ECHO DOPPLER COMPLETE INDICATIONS: Pericar dial effusion, aortic valve replacement COMPARISON: None. DESCRIPTION: COMPLET E ECHOCARDIOGRAM Real-time transthoracic echocardiography wit h 2D, M-mode, spectral and color flow Doppler performed. QUALITY: Technical quality was limited. LEFT VENTRICLE: Norm al chamber size. Borderline left ventricular hypertrophy. Normal systolic function. Abnormal septal motion, commonly seen post open heart surgery. LV EF: Normal left ventricular ejection fraction, (>55%). DIASTOLIC: Diastolic function is indeterminate. ATRIAL SEPTUM: LEFT ATRIUM: Mild dilatation. RIGHT ATRIUM: Mild dilatation. RIGHT VENTRICLE: Nor mal chamber size. Normal right ventricular systolic function. TRICUSPID VALVE: Nor mal mobility and thickness. No stenosis with trivial regurgitation. Doppl er studies reveal mildly (35-45) elevated right sided pressures. RVSP 41 mmHg MITRAL VALVE: Mildly thickened with normal mobility. No evidence of mitral valve stenosi s. There is no mitral annular calcification. Trivial mitral regurgitation. AORTIC VALVE: Bio-Prosthetic valve appears well seated in the aortic position with normal doppler flow. No aortic regurgitation. AORTIC ROOT: Normal diameter and appearance. PULMONIC VALVE: Not well visualized. No stenosis. No regurgitation. PERICARDIUM: No evid ence of pericardial effusion. IVC: IVC is dilated (2.3 cm), does not fully collapse. PLEURA: CONCLUSION: 1. The left ventricl e is normal in size and appears to exhibit normal systolic function. LVEF is estimated at 55%. 2. Normal right ventricular size and systolic function. 3. Mild biatrial dilatation. 4. Bioprosthetic aor tic valve is well-seated with normal function and no regurgitation. 5. Mildly elevated right-sided pressures. 6. No pericardial effusion. 7. Technically diffi cult study with poor sound transmission. Adult Echocardiograp hy Procedure Report Left Ventricle LVEDD (3.7 - 5.6 cm) : 5.54 cm LVESD (2.2 - 4.0 cm) : 2.95 cm LVIVS thickness (0.6 - 1.2 cm): 0.98 cm LVPW thickness (0.5 - 1.0 cm): 1.14 cm e': 0.10 m/s E - e': 9.90 LVOT Max Gradient: 1 .82 mm[Hg] LVOT Area (cm2): 0.67 m/s Peak Velocity (LVOT) : 0.67 m/s Mean Velocity (LVOT) : 0.46 m/s LVOT Diameter 2.68 cm Left Atrium LA Volume Index (2D A2C): 30.91 ml/m2 Left Atrium Systolic Dimension: 4.20 cm Mitral Valve MV E to A Ratio: 1.59 Mitral Valve A-Wave Peak Velocity: 0.61 m/s Mitral Valve E-Wave Peak Velocity: 0.96 m/s Right Ventricle Aorta AO Root Diam: 3.21 cm Aortic Valve AoV Area (Peak Derik): 2.34 cm2, 2.34 cm2 AoV Area (VTI): 2.85 cm2, 2.85 cm2 Peak Velocity(Antegr consuelo Flow): 1.63 m/s Peak Gradient(Antegr consuelo Flow): 10.64 mm[Hg] Mean Velocity(Antegr consuelo Flow): 1.14 m/s Mean Gradient(Antegr consuelo Flow): 5.88 mm[Hg] Velocity Time Integr al: 29.72 cm Tricuspid Valve Peak Velocity (Regurgitant Flow): 2.54 m/s Pulmonic Valve Peak Velocity: 0.62 m/s Peak Gradient: 1.52 mm[Hg] Right Atrium Right Atrium Systoli c Pressure: 77.50 ml, 77.50 ml Dictated by: Shanelle Rolle M.D. on 11/07/2023 at 19:57 Approved by: Shanelle Rolle M.D. on 11/07/2023 at 20:03 Dictated By: SHANELLE ROLLE Signed By: 11/07/232003 DD/ 02 TD/TT: Rn Acls: PTT Reviewed date:04/05/2024 05:30:55 PM Interpretation: Performing Lab: Notes/Report: [facility] , Partial Thromboplastin Time 43.2 22.3-36.2 sec RESULTS CALLED TO DR Marina PARISH @BY Anita Dewitt at 1044 Performing Lab: see note ML - [facility] LB PROF 14(COMP METB) Reviewed date:04/05/2024 05:30:55 PM Interpretation: Performing Lab: Notes/Report: [facility] , Sodium 142 136-145 mmol/L Potassium 4.4 3.5-5.1 mmol/L Chloride 104 98-107 mmol/L Carbon Dioxide 31.3 21.0-32.0 mmol/L Anion Gap 11.1 Glucose 111 74-106 mg/dL Blood Urea Nitrogen 19.0 7.0-18.0 mg/dL Creatinine 1.09 0.70-1.30 mg/dL Estimated GFR ( Nika >60 >=60 mL/min/1.73m 2 Estimated GFR (Non- Magy >60 >=60 mL/min/1.73m 2 BUN Creatinine Ratio 17.4 Calcium 9.1 8.5-10.1 mg/dL Bilirubin Total 0.5 0.2-1.0 mg/dL Aspartate Amino Transferase 15 15-37 U/L Alanine Aminotransferase 23 16-63 U/L Alkaline Phosphatase 72 46-116 U/L Total Protein 7.2 6.4-8.2 g/dL Albumin Level 4.1 3.4-5.0 g/dL Globulin 3.1 Albumin Globulin Ratio 1.3 Performing Lab: see note ML - [facility] LB CBC AUTO DIFF Reviewed date:04/05/2024 05:30:55 PM Interpretation: Performing Lab: Notes/Report: [facility] , White Blood Count 6.8 4.0-11.0 10 3/uL Red Blood Count 5.26 4.70-6.10 10 6/uL Hemoglobin 15.1 14.0-18.0 g/dL Hematocrit 45.8 42.0-54.0 % Mean Corpuscular Volume 87.1 80.0-94.0 fL Mean Corpuscular Hemoglobin 28.7 25.9-34.0 pg Mean Corpuscular HGB Conc 33.0 29.9-35.2 g/dL Red Cell Distribution Width 12.7 11.0-15.0 % Platelet Count 198 150-450 10 3/uL Mean Platelet Volume 10.4 9.5-13.5 fL Neutrophils Percent Auto 70.5 43.0-75.0 % Lymphocytes Percent Auto 16.2 20.5-60.0 % Monocytes Percent Auto 9.6 1.7-12.0 % Eosinophils Percent Auto 2.9 0.9-7.0 % Basophils Percent Auto 0.7 0.2-2.0 % Immature Granulocytes Pct Auto 0.1 0.0-0.5 % Neutrophils Absolute Auto 4.8 1.4-6.5 10 3/uL Lymphocytes Absolute Auto 1.1 1.2-3.8 10 3/uL Monocytes Absolute Auto 0.7 0.3-0.8 10 3/uL Eosinophils Absolute Auto 0.2 0.0-0.7 10 3/uL Basophils Absolute Auto 0.1 0.0-0.1 10 3/uL Immature Granulocytes Abs Auto 0.01 0.00-0.03 10 3/uL Performing Lab: see note ML - [facility] LB BNP Reviewed date:04/05/2024 05:30:55 PM Interpretation: Performing Lab: Notes/Report: [facility] , NT Pro B Type Natriuretic Pept 85.0 <=900.0 pg/mL Performing Lab: see note - [facility] AMMONIA Reviewed date:04/05/2024 05:30:55 PM Interpretation: Performing Lab: Notes/Report: [facility] , Ammonia 16 11-32 umol/L Performing Lab: see note - [facility] LB ECG 12 lead Reviewed date:06/28/2024 03:57:49 PM Interpretation: Performing Lab: Notes/Report: Source Facility: [address] [address] [place] [address] Electrocardiograph Report Signed Patient: NEHAL BAIG MR#: [id number] : 1970 Acct:[id number] Age/Sex: 53 / M ADM Date: 06/25/24 Loc: ER Attending Dr: Ordering Physician: Devin Sy M.D. 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 Measurements Intervals [place] Rate: 67 P: 51 CT: 162 QRS: 36 QRSD: 94 T: 245 QT: 362 QTc: 377 Interpretive Statements 1100 Sinus rhythm [address] depression 4364 Twave abnormality, possible anterolateral ischemia 4664 Twave abnormality, possible inferior ischemia 7300 Indeterminate axis 8102 Low QRS voltage in chest leads 9150 abnormal ECG Compared to ECG 01/27/2024 16:44:33 Indeterminate axis now present Low QRS voltage now present ST (T wave) deviation still present Possible ischemia still present Electronically Signed On 06-26-2024 19:15:39 EDT by SHANELLE ROLLE M.D. Dictated By: SHANELLE ROLLE Signed By: 06/26/241914 DD/ 4 TD/TT: Rn Acls: [place] [address] Electrocardiograph Report Signed Patient: NEHAL BAIG MR#: [id number] : 1970 Acct:[id number] Age/Sex: 53 / M ADM Date: 06/25/24 Loc: ER Attending Dr: Ordering Physician: Devin Sy M.D. 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 Measurements Intervals [place] Rate: 67 P: 51 CT: 162 QRS: 36 QRSD: 94 T: 245 QT: 362 QTc: 377 Interpretive Statements 1100 Sinus rhythm [address] depression 4364 Twave abnormali ty, possible anterolateral ischemia 4664 Twave abnormali ty, possible inferior ischemia 7300 Indeterminate axis 8102 Low QRS voltage in chest leads 9150 abnormal ECG Compared to ECG 01/27/2024 16:44:33 Indeterminate axis n ow present Low QRS voltage now present ST (T wave) deviatio n still present Possible ischemia st ill present Electronically Delaney d On 06-26-2024 19:15:39 EDT by SHANELLE ROLLE M.D. Dictated By: SHANELLE ROLLE Signed By: 06/26/241914 DD/ 4 TD/TT: Rn Acls: Reason For Referral Diagnosis 1 Occult blood positiv e stool (R19.5) Referral Organization [facility] Referring Provider First Name Conor Referring Provider Last Name [facility] Referring Provider [facility] Referred Provider Clay Galarza Referred Provider Specialty General Surg blessing Referral Priority Routine Diagnosis 1 Anemia, iron deficie ncy (D50.9) Referral Organization [facility] Referring Provider First Name Conor Referring Provider Last Name [facility] Referring Provider [facility] Referred Provider Kevin William Referred Provider Specialty Gastroentero logy Referral Priority Routine Medications Medication SIG (Take, Route, Frequency, Duration) Notes Start Date End Date Status Mupirocin 2 % 1 application Pc Analyst ally Twice a day for 5 days 11/06/2024 Active Warfarin Sodium 5 MG 1 tablet Orally Once a day Active Farxiga 10 MG 1 tablet Orally Once a day for 30 days 09/12/2023 Active Doxycycline Monohydrate 100 MG 1 tablet Orally bid for 10 days 11/06/2024 Active Gabapentin 400 MG 1 capsule Orally bid Active PriLOSEC OTC 20 MG 2 tablet 30 minutes before morning meal Orally Once a day Active Aspirin 81 81 MG 1 tablet Orally Once a day Active Baclofen 20 MG 1 tablet Orally bid for 30 days Active Vitamin D (Cholecalciferol) 50 MCG (1999) 1 capsule Orally Once a day Active HYDROcodone-Acetaminophen 7.5-325 MG 1 tablet as needed Orally TID-QID 08/21/2023 Active Cefdinir 300 MG 2 capsule Orally onc e a day for 10 days 11/06/2024 Active Lasix 40 MG 1 tablet Orally Once a day Active Metoprolol Succinate 25 MG 1 capsule Ora lly Once a day Active Social History Tobacco Use: Social History Observation Description Date Details (start date - stop date) Never Smoker NA - NA Tobacco Use/Smoking Question Answer Notes Patient is a nonsmoker Alcohol Screen (Audit-C) Question Answer Notes Did you have a drink containing alcohol in the p ast year? No Points 0 Interpretation Negative AUDIT-C (Standard) Question Answer Notes Did you have a drink containing alcohol in the p ast year? 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) Active confirmed Problem 916763549056610 Achilles tendinitis, right leg (M76.61) Active confirmed Problem 219860315267551 Calcaneal spur, right foot (M77.31) Active confirmed Problem 510641935568438 Calcaneal spur, left foot (M77.32) Active confirmed Problem 573685434 Anesthesia of skin (R20.0) Active confirmed Problem 93778123 Paresthesia of skin (R20.2) Active confirmed Problem Bacteremia (0917883) Bacteremia (R78.81) Active confirmed Problem 27361767156537593 Strain of left Achilles tendon, sequela (S86.012S) Active confirmed Problem Lymphedema (74807468) Lymphedema (I89.0) Active confirmed Problem Sleep apnea (50006824) Sleep apnea (G47.30) Active confirmed Problem Pericardial effusion (223461319) Pericardial effusion (I31.9) Active confirmed Problem Ankle pain (444181043) Ankle pain (M25.579) Active confirmed Problem Internal hemorrhoid (41427021) Internal hemorrhoid (K64.8) Active confirmed Problem Lumbar radiculopathy (730377733) Lumbar radiculopathy (M54.16) Active confirmed Problem Foot pain (41620675) Foot pain (M79.673) Active confirmed Problem Cervical disc disease (127477361) Cervical disc disease (M50.90) Active confirmed Problem Ejection fraction < 50% (R09.89) Active confirmed Problem 847619948 Pain of left lower extremity (M79.605) Active confirmed Problem Hepatomegaly (47164664) Hepatomegaly (R16.0) Active confirmed Problem Iron deficiency anemia (46103374) Anemia, iron deficiency (D50.9) Active confirmed Problem Displacement of lumbar intervertebral disc without myelopathy (69329989) Herniated nucleus pulposis of lumbosacral region (M51.27) Active confirmed Problem Meralgia paresthetica (61593806) Meralgia paresthetica (G57.10) Active confirmed Problem Malnutrition of moderate degree (Lynn: 60% to less than 75% of standard weight) (73050607) Moderate malnutrition (E44.0) Active confirmed Problem Essential hypertension (98963481) BP (high blood pressure) (I10) Active confirmed Problem High cholesterol (58719805) High cholesterol (E78.00) Active confirmed Vital Signs Blood pressure diastolic 60 mm Hg 11/06/2024 Height 73 in 11/06/2024 Blood pressure systolic 118 mm Hg 11/06/2024 Weight 371.6 lbs 11/06/2024 BMI 49.02 kg/m2 11/06/2024 Procedures Procedure Date Ordered Date Performed Result Body Sit e Sleep Study: Retitration BIPAP/CPAP 11/14/2023 N/A Echocardiogram 01/30/2024 N/A Colonoscopy 04/17/2024 undefined CARDIO Echocardiogram 11/06/2024 N/A Encounters Encounter Location Date Provider Diagnosis [id number] [place] [address] 11/25/2023 Conor Parish [facility] [address] [place] [address] 01/27/2024 Kelly Garcia [facility] [address] [place] [address] 01/30/2024 Kelly Garcia RUQ abdominal pain R10.11 [facility] [address] [place] [address] 02/02/2024 Conor Parish [facility] [address] [place] [address] 02/06/2024 Conor Parish Occult blood positiv e stool R19.5 [facility] [address] [place] [address] 02/07/2024 Conor Parish Anemia, iron deficie ncy D50.9 and Occult blood positive stool R19.5 [facility] [address] [place] [facility] [place] [address] 02/10/2024 Conor luz elena [facility] [address] [place] [facility] [place] [address] 02/22/2024 Conor luz elena [facility] [address] [place] [facility] [place] [address] 02/24/2024 Conor luz elena [facility] [address] [place] [facility] [place] [address] 02/25/2024 Conor luz elena [facility] [address] [place] [facility] [place] [address] 02/25/2024 Conor ulz elena [facility] [address] [place] [facility] [place] [address] 04/05/2024 Conor [facility] [address] [place] [facility] [place] [address] 04/15/2024 Conor [facility] [address] [place] [facility] [place] [address] 09/01/2024 Conor Parish Lumbar radiculopathy M54.16 [facility] [address] [place] [facility] [place] [address] 01/30/2024 Kelly Yumi Dysuria R30.0 ; Fati kathy R53.83 and Chest pain R07.9 [facility] [address] [place] [facility] [place] [address] 04/02/2024 Conor Dueñasy Hepatomegaly R16.0 [facility] [address] [place] [facility] [place] [address] 11/06/2024 Conor Hoy Lymphedema I89.0 [facility] [address] [place] [facility] [place] [address] 11/14/2023 Conor Hoy Sleep apnea G47.30 ; BP (high blood pressure) I10 ; Lumbar radiculopathy M54.16 and Pericardial effusion I31.9 Assessments Encounter Date Diagnosis (ICD Code) Assessment Notes Treatment Notes Treatment Clinical Notes Section Notes 11/14/2023 Sleep apnea (ICD-10 - G47.30) needs a new machine - suojld get new study first 11/14/2023 BP (high blood pressure) (ICD-10 - I10) stable here 04/02/2024 Hepatomegaly (ICD-10 - R16.0) 11/06/2024 Lymphedema (ICD-10 - I89.0) 01/30/2024 RUQ abdominal pain (ICD-10 - R10.11) 02/06/2024 Occult blood positive stool (ICD-10 - R19.5) 02/07/2024 Anemia, iron deficiency (ICD-10 - D50.9) 02/07/2024 Occult blood positive stool (ICD-10 - R19.5) 09/01/2024 Lumbar radiculopathy (ICD-10 - M54.16) 01/30/2024 Dysuria (ICD-10 - R30.0) 01/30/2024 Fatigue (ICD-10 - R53.83) 01/30/2024 Chest pain (ICD-10 - R07.9) EKG, trop ok return ER if needed call cardiology , earlier fu 11/14/2023 Lumbar radiculopathy (ICD-10 - M54.16) stable pain - seeing pain managemtn 11/14/2023 Pericardial effusion (ICD-10 - I31.9) disucssed cardiology visit 01/30/2024 Other labs urine echo US RUQ if pat wants Plan Of Treatment Pending Test Test Name Order Date CMP (COMPLETE METABOLIC PANEL) UA (URINALYSIS, COMPLETE) 01/30/2024 HEMOGLOBIN A1C (GLYCO) 01/30/2024 INSULIN, TOTAL 01/30/2024 LIPID PANEL (CHOL/TRIG/HDL/LDL) 01/30/20 CBC WITH DIFF 01/30/2024 URIC ACID 01/30/2024 Echocardiogram 01/30/2024 CARDIO Echocardiogram 11/06/2024 Urine Culture 01/30/2024 Sleep Study: Retitration BIPAP/CPAP 10/30 MRI Spine Lumbar w/o Contrast 04/25/2022 PSA, TOTAL 01/30/2024 High Sensitivity Troponin 11/06/2024 US Abdomen - Limited 01/30/2024 STOOL OCCULT BLOOD 01/30/2024 BNP 11/06/2024 IRON 01/30/2024 PROF 14(COMP METB) 11/06/2024 PROTIME 04/02/2024 THYROID PROFILE WITH TSH 04/02/2024 VITAMIN B12 01/30/2024 US ABD 04/02/2024 XR CHEST 2 V 11/06/2024 THYROID PANEL (T4/TSH/FREE T3) THYROID PANEL (T4/TSH/FREE T3) Vitamin D 01/30/2024 Insurance Providers Payer Name Payer Address Payer Phone Subscriber Number Group Number Insured Name Patient Relationship to Insured Coverage Start Date Coverage End Date [employer] [place] [address] [place] [id number] Nehal Baig Self - patient is the insured Medications Administered Medication Instructions Date of Administration Dosage Notes Ketorolac Tromethamine 08/28/2023 60 mg 60 Orphenadrine Citrate 08/28/2023 60 mg 60 Medical (General) History Medical History History ICD Code hypertension Surgical History Surgery Date(Month/Year) Colonoscopy- Dr Connolly 04/17/2024 Colonoscopy- Dr Connolly 03/13/24 Epidural injections 10/2023 Pericardiocentesis 09/03/23 Aortic Valve Replacement 06/27/2023 Kidney Stone Removal left Achilles repair, EPF, r emoval of calcaneal spur and flexor hallucis longus tendon transfer 03/11/2023 Vasectomy 2015 Carpal Tunnel release Bilateral 2021 shoulder replacement 07/2021 Hospitalization History Reason Date(Month/Year) see above
--- OUTSIDE RECORDS SUMMARY | 2024-11-06 14:17 | XMS_ITS | Clinical Summary ---
Author Organization [facility] Address [address] [place] [address] Phone Care Team Providers Care Photograph Mounter Name Role Phone Unavailable Primary Care Provider Unavailabl e Social History Tobacco Use Types Packs/Day Years Used Date Smoking Tobacco: Never Assessed Sex and Gender Information Value Date Recorded Sex Assigned at Not on file Legal Sex Male 10:41 AM EST Gender Identity Male 05/27/2024 3:07 AM EST Sexual Orientation Straight 05/27/2024 3: 07 AM EST Plan of Treatment Health Maintenance Due Date Last Done Comments CT Colonography 1970 Creatinine Level 1970 Echocardiogram 1970 FIT-DNA (Cologuard) 1970 FIT 1970 HIV Screening 1970 Lipid Panel 1970 Potassium Level 1970 Yearly Adult Physical 1970 MMR Vaccines (1 of 1 - Standard series) 1973 Hepatitis C Screening 1990 Hepatitis A Vaccines (1 of 2 - Risk 2-dose series) 10/04/1991 Hepatitis B Vaccines (1 of 3 - 19+ 3-dose series) 10/04/1991 PSA Prostate Cancer Screening 2022 Pneumococcal Vaccine (1 of 1 - PCV) 2022 Zoster Vaccines (1 of 2) 2022 COVID-19 Vaccine (1 - season) 2023 Influenza Vaccine (#1) 2024 02/07/2015 Diabetes Screening 04/20/2025 04/20/2024, 0 08/18/2022, 05/19/2022, Additional history exists DTaP/Tdap/Td Vaccines (2 - Td or Tdap) 11/16/2025 11/17/2015 Sigmoidoscopy 07/31/2026 07/31/2021 Colonoscopy 04/17/2034 04/17/2024, 07/31/2021 Colorectal Cancer Screening 04/17/2034 HIB Vaccines Aged Out No longer eligi [...] on patient's age to complete this topic Insurance
--- OUTSIDE RECORDS SUMMARY | 2024-11-06 14:17 | XMS_ITS | Encounter Summary ---
Author Organization [facility] Address [address] [place] [address] Care Team Providers Care Preflight Inspector Name Role Phone Natalia Aguillon APRN.CAD OPERATOR Primary Care Provider Huan Barragan Unavailable Huan Barragan Unavailable Source Comments In the event this information is protected by the Federal Confidentiality of Alcohol and Drug AbusePatient Records regulations: The Federal rules restrict any use of the information to criminally investigate or prosecute any alcohol or drug abuse patient.[facility] Encounter Details Date Type Department Care Team (Late st Contact Info) Description 12/20/2020 Get Medical Advice Orthopaedics [address] [place] [address] Simon Douglass MD [address] [place], [place] [id number] Upcoming Appointment Question Social History Tobacco Use Types Packs/Day [...] often do you attend chur ch or rastafarian services? Never 08/06/2020 Do you belong to any clubs o r organizations such as druze groups, unions, fraternal or athletic groups, or [...] Answer Date Recorded PHQ-2 score 0 08/06/2020 [facility] Answer Date [...] place to sleep or slept in a long-term (including now)? No 08/06/2020 Area Deprivation Index Answer Date Omid rded National Score (1-100), lower number is lower ri sk Not on file 03/06/2020 State Score (1-10), lower number is lower risk N ot on file 03/06/2020 Data from: https://www.neighborhoodatlas.medicine.[facility].edu/. Last address used for calculation [...] have Coronavirus / COVID-19? No / Unsure 12/12/2020 12:51 PM EDT documented as of this encounter [...] on filedocumented in this encounter Care Teams Preflight Inspector Relationship Specialty Start Date End Date Natalia Aguillon, PASTRY WRAPPER.CAD OPERATOR [address] [place] [address] PCP - General Family Medicine 11/23/19 Huan Barragan [address] [place] [address] Referring Orthopedics 03/31/24 Huan Barragan [address] [place] [address] Referring Orthopedics 04/03/24 documented as of this encounter
--- OUTSIDE RECORDS SUMMARY | 2024-11-06 14:17 | XMS_ITS | Clinical Summary ---
Author Organization [facility] Address [address] [place] [address] Care Team Providers Care Shingler Name Role Phone Natalia Aguillon APRNPAZ Primary Care Provider Huan Barragan Unavailable Huan Barragan Unavailable Allergies Active Allergy Reactions Criticality Noted Date Comments Atorvastatin Other: See Comments 07/18/2023 Other Reaction(s): Other Myalgias Myalgias Medications Omeprazole 40 mg capsuleIndicatio ns:Gastroesophag eal reflux disease, esophagitis presence not specified Take 1 capsule by mouth once daily. 30 capsule 11 10/04/19 17 Active albuterol HFA (PROAIR HFA) 90 mcg/actuation inhaler Inhale 2 Puffs as instructed every 4 hours as needed for wheezing/shortness of breath. 18 g 3 03/10/20 21 Active rosuvastatin (CRESTOR) 40 mg tablet Take 1 tablet by mouth once daily. 90 tablet 1 08/21/19 23 Active lisinopril (ZESTRIL) 10 mg tabletIndication s:Essential hypertension TAKE 1 TABLET BY MOUTH EVERY DAY 90 tablet 1 10/04/19 23 Active warfarin (COUMADIN) 5 mg tablet Take 5mg daily, or as directed by the anticoagulation service provider. Dose may change, based on INR results. 07/05/19 24 Active valsartan (DIOVAN) 40 mg tablet Take 40 mg by mouth. 09/07/19 24 Active spironolactone (ALDACTONE) 25 mg tablet take 1 tablet by mouth once a day as directed Active metoprolol succinate ER (TOPROL XL) 25 mg 24 hr tablet Take 25 mg by mouth. 07/18/19 025 Active HYDROcodone-Acet aminophen (NORCO) 7.5-325 mg per tablet Take 1 tablet by mouth two times a day as needed. Active gabapentin (NEURONTIN) 400 mg capsule Take 400 mg by mouth two times a day. Active furosemide (LASIX) 40 mg tablet Take 40 mg by mouth every morning. Active dapagliflozin propanediol (FARXIGA) 10 mg tablet Take 10 mg by mouth. 09/26/19 Active Cholecalciferol, Vitamin D3, 50 mcg (2,000 unit) cap 1 capsule. Active baclofen 20 mg tablet Take 20 mg by mouth. 07/11/19 Active Active Problems Problem Noted Date Diagnosed Date Nontraumatic tear of left rotator cuff Prosthetic joint infection 04/20/2024 Elevated glucose 04/20/2024 Impaired fasting blood sugar 02/15/2022 S/P shoulder replacement, left 02/15/2022 History of colon polyps 02/15/2022 Chronic pain due to trauma 02/15/2022 Prediabetes 08/15/2021 Fatty metamorphosis of liver 08/15/2021 Lung nodules 03/10/2021 Assessment & Plan (07/26/2021 1:39 PM EDT): Assessment: CT 01/2021 IMPRESSION: 1. Bilateral subcentimeter pulmonary nodules, largest measuring approximately 6 mm, as above. See detailed follow-up recommendations below. 2. No substantial intrathoracic adenopathy is identified. 3. Incidental note is made of hepatic steatosis and cholelithiasis on the images through the upper abdomen. Environmental allergies 03/10/2021 Obstructive sleep apnea syndrome 03/10/2021 Assessment & Plan (07/26/2021 1:38 PM EDT): Assessment: uses BiPAP nightly Shortness of breath 03/10/2021 Assessment & Plan (07/26/2021 1:39 PM EDT): Assessment: Flovent daily and albuterol PRN, ~3-5 times/week Wheezing 03/10/2021 Post-operative state 02/08/2021 Carpal tunnel syndrome, right 01/24/2021 Carpal tunnel syndrome, left 12/27/2020 Carpal tunnel syndrome, bilateral 12/12/2020 Mediastinal hematoma 08/01/2020 Carotid stenosis, left 11/26/2019 Morbid obesity with BMI of 50.0-59.9, adult 10/31 Assessment & Plan (07/26/2021 1:39 PM EDT): Assessment: BMI 53 Arthralgia of multiple sites 11/26/2019 Essential hypertension 11/26/2019 Assessment & Plan (07/26/2021 1:38 PM EDT): Assessment: controlled with medication, 136/78 yesterday Mixed hyperlipidemia 11/26/2019 Assessment & Plan (07/26/2021 1:38 PM EDT): Assessment: taking statin Primary insomnia 11/26/2019 Lightheadedness 11/26/2019 Obesity, Class III, BMI 40-49.9 (morbid obesity) 07/30/2017 Immunizations Immunization Administration Dates Next Due influenza (IIV3) vaccine, ag e 6 mo - 64 yr, trivalent (AFLURIA, FLULAVAL, FLUVIRIN, FLUZONE) 02/07/2015 tetanus diphtheria pertussis (Tdap) vaccine, age 7+ yr (ADACEL, BOOSTRIX) 11/17/2015 Family History Medical History Relation Comments GERD Brother Epilepsy Father Allergies Mother COPD Mother Smoker Lung Cancer Mother Asthma No Family History DVT No Family History Relation Status Comments Brother Father Alive Maternal Grandfather Maternal Grandmother Mother Alive Paternal Grandfather Paternal Grandmother Social History Tobacco Use Types Packs/Day Years Used Date Smoking Tobacco: Never Smokeless Tobacco: Never Tobacco Cessation:Counseling Given: Not Answered Alcohol Use Standard Drinks/Week Comments Yes 0 (1 standard drink = 0.6 oz pur e alcohol) Rare Social Connection and Isolat ion Panel [NHANES] Answer Date Recorded In a typical week, how many times do you talk on the phone with family, friends, or neighbors? More than three times a week 08/20/2022 How often do you get togethe r with friends or relatives? Patient declined 08/20/2022 How often do you attend chur or restorationism services? Patient declined 08/20/2022 Do you belong to any clubs o r organizations such as hinduism groups, unions, fraternal or athletic groups, or school groups? No 08/20/2022 How often do you attend meet ings of the clubs or organizations you belong to? Never 08/20/2022 Are you , , di vorced, , never , or living with a partner? 08/20/2022 AUDIT-C Answer Date Recorded Q1: How often do you have a drink containing alcohol? Never 08/20/2022 Q2: How many drinks containi ng alcohol do you have on a typical day when you are drinking? Patient does not drink Q3: How often do you have si x or more drinks on one occasion? Never 08/20/2022 Overall Financial Resource Strain (CARDIA) Answe r Date Recorded How hard is it for you to pa y for the very basics like food, housing, medical care, and heating? Not hard at all 08/20/2022 PHQ-2 Answer Date Recorded PHQ-2 score 0 04/20/2024 [facility] - Occupational Stress Questionnaire Answer Date Recorded Do you feel stress - tense, restless, nervous, or anxious, or unable to sleep at night because your mind is troubled all the time - these days? Not at all 08/20/2022 Exercise Vital Sign Answer Date Recorde d On average, how many days pe r week do you engage in moderate to strenuous exercise (like a brisk walk)? 4 days 08/20/2022 On average, how many minutes do you engage in exercise at this level? 30 min 08/20/2022 Hunger Vital Sign Answer Date Recorded Within the past 12 months, y ou worried that your food would run out before you got the money to buy more. Never true 08/21/19 23 Within the past 12 months, t he food you bought just didn't last and you didn't have money to get more. Never true 08/20/2022 PRAPARE - Transportation Answer Date Re corded In the past 12 months, has l ack of transportation kept you from medical appointments or from getting medications? No 07/31 In the past 12 months, has l ack of transportation kept you from meetings, work, or from getting things needed for daily living? No 08/20/2022 Housing Stability Vital Sign Answer Matt e Recorded In the last 12 months, was t here a time when you were not able to pay the mortgage or rent on time? No 08/20/2022 In the last 12 months, how many places have you lived? 2 08/20/2022 In the last 12 months, was t here a time when you did not have a steady place to sleep or slept in a fdc (including now)? No 08/20/2022 Area Deprivation Index Answer Date Omid rded National Score (1-100), lower number is lower ri sk 78 08/20/2022 State Score (1-10), lower number is lower risk 6 08/20/2022 Data from: https://www.neighborhoodatlas.medicine.[facility].edu/. Last address used for calculation [address] 08/20/2022 Education Answer Date Recorded What is the [...] Orientation Straight 02/14/2021 10 :19 AM EST Last Filed Vital Signs Vital Sign Reading Time Taken Comments Blood Pressure 128/72 08/20/2022 5:28 PM EDT man ual by pcp Pulse 51 08/20/2022 5:10 PM EDT Temperature 36.3 C (97.3 F) 07/31/2021 11:45 AM EDT Respiratory Rate 20 09/22/2021 11:3 3 AM EDT Oxygen Saturation 100% 08/20/2022 5:10 PM EDT Inhaled Oxygen Concentration - - Weight 176.9 kg (390 lb) 08/20/2022 5:10 PM EDT Height 185.4 cm (6' 1 ) 08/20/2022 5:10 PM EDT Body Mass Index 51.45 08/20/2022 5:10 PM EDT Plan of Treatment Health Maintenance Due Date Last Done Comments Anxiety Screening 1990 Depression Screening 1990 Hepatitis B Vaccine (1 of 3 - 19+ 3-dose series) 10/04/1991 CT Colonography 2017 Cologuard (FIT-DNA) 2017 Fecal Occult Blood 2017 Sigmoidoscopy 2017 Pneumococcal Vaccine: 50+ (1 of 1 - PCV) 2022 Shingrix Vaccine (1 of 2) 2022 Annual PCP Team Chronic Dise ase Visit 08/21/2023 08/20/2022 Colonoscopy 07/31/2024 07/31/2021 Colorectal Cancer Screening 07/31/2024 Influenza Vaccine (#1) 2024 02/07/2015 DTaP,Tdap,Td Vaccine (2 - Td or Tdap) 11/16/2025 11/17/2015 Diabetes Screening 04/20/2027 04/20/2024, 0 09/06/2023, 09/05/2023, Additional history exists Lipid Screening 08/19/2027 08/18/2022, 05/02, 02/10/2022, Additional history exists HIV Screening Completed 11/23/2019 Hepatitis C Screening Completed 11/23/2019 Procedures Procedure Name Priority Date/Time Associated Diagnosis Comments HEMOGLOBIN A1C Routine 04/20/2024 4:19 PM EST Elevated glucose LIPID PANEL, FASTING Routine 08/18/2022 8:18 AM EDT Routine lab draw COLONOSCOPY DIAGNOSTIC Routine 10:37 AM EDT Dark stools HIV 1/2 COMBO WITH REFLEX TO DIFFERENTIATION Routine 11/23/2019 4:09 PM EDT Screening for HIV (human immunodeficiency virus) *HEP C AB Routine 11/23/2019 4:09 PM EDT Special screening examination for viral disease from Last 3 Months or Most Recently Relevant to Health Maintenance Results * HEMOGLOBIN A1C (04/20/2024 4:19 PM EST) Hemoglobin A1C 5.1 4.3 - 5.6 % 04/21/2024 5:25 AM EST [facility] Comment:[place] Diabetes As sociation guidelines indicate that patients with HgbA1c in the range 5.7-6.4% are at increased risk for development of diabetes, and intervention by lifestyle modification may be beneficial. HgbA1c greater or equal to 6.5% is considered diagnostic of diabetes. Estimated Average Glucose 100 mg/dL 04/21/2024 5:25 AM EST [facility] Comment:eAG: (Estimated aver age glucose) is a calculated value from HgbA1c and is lifeline representatives of the average blood glucose level in the last 2-3 month period. Blood BLOOD SPECIMEN / Unknown Venipuncture / Unknown 04/20/2024 4:19 PM EST 04/20/2024 4:20 PM EST us Guy Mcdonald MD LABORATORY Final Result Performing Organization Address City/State/[facility] Co de Phone Number [facility] [address] [place] [address], * (ABNORMAL) LIPID PANEL BASIC (08/18/2022 8:18 AM EDT) Cholesterol, Total 227(H) <200 mg/dL 08/18/2022 9:22 AM T [facility] Comment: <200 mg/dL, Desirable 200-239 mg/dL, Borderline high >239 mg/dL, High Triglyceride 163(H) <150 mg/dL 08/18/2022 9:22 AM EDT [facility] Comment: <150 mg/dL, Normal 150-199 mg/dL, Borderline high 200-499 mg/dL, High >499 mg/dL, Very high HDL Cholesterol 40 >39 mg/dL 9:22 AM [facility] Comment: 40-59 mg/dL, Acceptable >59 mg/dL, High: Negative risk factor for coronary heart disease <40 mg/dL, Low: Positive risk factor for coronary heart disease Non HDL Cholesterol 187(H) <130 mg/dL 08/18/2022 9:22 AM EDT [facility] Comment: <130 mg/dL, Optimal 130-159 mg/dL, Near optimal/above optimal 160-189 mg/dL, Borderline high 190-219 mg/dL, High >219 mg/dL, Very high Secondary prevention optimal non HDL Cholesterol levels are recommended to be <100 mg/dL Fasting Time 12 hrs 08/18/2022 9:22 AM EDT [facility] VLDL Cholesterol 33(H) <30 mg/dL 08/19/19 9:22 AM EDT [facility] TC:HDL Ratio 5.68(H) <5.10 08/18/2022 9:22 AM EDT [facility] LDL Cholesterol, Calculated 154(H) <100 mg/dL 08/18/2022 9:22 AM EDT [facility] Comment: <100 mg/dL, Optimal 100-129 mg/dL, Near optimal/above optimal 130-159 mg/dL, Borderline high 160-189 mg/dL, High >189 mg/dL, Very high Secondary prevention optimal LDL Cholesterol levels are recommended to be < 70 mg/dL LDL:HDL Ratio 3.85(H) <2.54 08/18/2022 9:22 AM EDT [facility] Comment: Reference: 1. National Cholesterol Education Program ATP III Guideline At-A-Glance Quick Desk Reference: National Heart, Lung, and Blood [place]. National Institutes of Health. 2001: NIH Publication No. 01-3305. 2. An International Atherosclerosis Society position paper: global recommendations for the management of dyslipidemia: executive summary, Atherosclerosis. 2014: 232(2):410-413. Blood BLOOD SPECIMEN / Unknown Venipuncture / Unknown 08/18/2022 8:18 AM EDT 08/18/2022 8:18 AM EDT us Natalia Aguillon APRN.DIRECTOR OF STRATEGIC INITIATIVES LABORATORY Final R esult [facility] [address] [id number], * COLONOSCOPY DIAGNOSTIC (07/31/2021 10:37 AM EDT) Anatomical Region Laterality Modality Other 07/31/2021 10:3 7 AM EDT Narrative 07/31/2021 11:44 AM EDT [facility] Gastrointestinal Endoscopy Patient Name: Pardeep Engel Procedure Date: 07/31/2021 10:37 AM Date of : 1970 Admit Type: Outpatient Age: 50 Room: [facility] Gender: Male Note Status: Finalized Attending MD: Kahlil Patel MD Procedure: Colonoscopy Indications: dark stools per PCP note Providers: Kahlil Patel MD Patient Profile: Refer to note in patient chart for documentation of history and physical. Last Colonoscopy: none. The patient's first colonoscopy is today. Referring Physician: Natalia Aguillon CNP (Referring MD) Medicines: Propofol per Anesthesia Complications: No immediate complications. Estimated blood loss: Minimal. Procedure: Pre-Anesthesia Assessment: - Prior to the procedure, a History and Physical was performed, and patient medications and allergies were reviewed. The patient's tolerance of previous anesthesia was also reviewed. The risks and benefits of the procedure and the sedation options and risks were discussed with the patient. All questions were answered, and informed consent was obtained. Prior Anticoagulants: The patient has taken no previous anticoagulant or antiplatelet agents. ASA Grade Assessment: II - A patient with mild systemic disease. After reviewing the risks and benefits, the patient was deemed in satisfactory condition to undergo the procedure. After I obtained informed consent, the scope was passed under direct vision. Throughout the procedure, the patient's blood pressure, pulse, and oxygen saturations were monitored continuously. The Colonoscope was introduced through the anus and advanced to the cecum, identified by appendiceal orifice and ileocecal valve. The ileocecal valve and the rectum were photographed. The colonoscopy was somewhat difficult due to a tortuous colon. The quality of the bowel preparation was fair. The patient tolerated the procedure. Scope Withdrawal Time: 0 hours 13 minutes 58 seconds Moderate Sedation: See the other procedure note for documentation of moderate sedation with intraservice time. See the other procedure note for documentation of moderate sedation with intraservice time. MAC anesthesia was administered by the anesthesia team. Total Procedure Duration: 0 hours 33 minutes 16 seconds Findings: The perianal and digital rectal examinations were normal. A 6 mm polyp was found in the sigmoid colon. The polyp was semi-pedunculated. The polyp was removed with a hot snare. Resection and retrieval were complete. Verification of patient identification for the specimen was done by the polygraph technician using the patient's name, date and medical record number. Estimated blood loss was minimal. The colon (entire examined portion) was mildly tortuous. The exam was otherwise without abnormality on direct and retroflexion views. Impression: - One 6 mm polyp in the sigmoid colon, removed with a hot snare. Resected and retrieved. - Tortuous colon. - The examination was otherwise normal on direct and retroflexion views. Recommendation: - Discharge patient to home (ambulatory). - High fiber diet. - Repeat colonoscopy in 5 years for surveillance. - Return to my office PRN. - Patient has a contact number available for emergencies. The signs and symptoms of potential delayed complications were discussed with the patient. Return to normal activities tomorrow. Written discharge instructions were provided to the patient. - Continue present medications. Procedure Code(s): --- Professional --- 84038, Colonoscopy, flexible; with removal of tumor(s), polyp(s), or other lesion(s) by snare technique Diagnosis Code(s): --- Professional --- Q43.8, Other specified congenital malformations of intestine K63.5, Polyp of colon CPT copyright 2019 [employer]. All rights reserved. The codes documented in this report are preliminary and upon oven tender bagels review may be revised to meet current compliance requirements. Attending Participation: I personally performed the entire procedure. Scope In: 11:03:57 AM Scope Out: 11:37:13 AM MD Kahlil Gold MD 07/31/2021 11:44:54 AM This report has been signed electronically by Kahlil Patel MD Number of Addenda: 0 Note Initiated On: 07/31/2021 10:37 AM Estimated Blood Loss: Estimated blood loss was minimal. Natalia Aguillon APRN.DIRECTOR OF STRATEGIC INITIATIVES DIGESTIVE DISEASE Final Result * HIV 1 2 COMBO(AG/AB),WITH REFLEX TO DIFFERENTIATION (11/23/2019 4:09 PM EDT) HIV 12 Combo (Ag/Ab) Non Reactive Non Reactive 11/24/2019 11:27 AM EDT [facility] [email or web address] HIV-1/2 AB Test Not Indicated 11/24/2019 11:27 AM EDT [facility] HIV Interpretation Negative 11/24/2019 11:27 AM EDT [facility] Comment: No evidence of HIV-1 or HIV-2 infection. Should recent infection be suspected, repeat testing may be considered 2-3 weeks after this draw. HIV Information: [place] Rev. Code 3701.243(E): This information has been disclosed to you from confidential records protected from disclosure by state law. You shall make no further disclosure of this information without the specific, written, and informed release of the individual to whom it pertains or as otherwise permitted by state law. A general authorization for the release of medical or other information is not sufficient for the purpose of the release of HIV test results or diagnoses. Blood specimen (specimen) BLOOD SPECIMEN / Unknown 11/23/2019 4:09 PM EDT 11/23/2019 4:11 PM EDT Natalia Aguillon APRN.CNP LABORATORY Final R esult [facility] [address] [place] [address] [facility] [address] [place] [address] * HEP C AB IA W/CONF SCRN (11/23/2019 4:09 PM EDT) Hep C Antibody IA Negative Negative 11/24/2019 11:27 AM EDT [facility] Blood specimen (specimen) BLOOD SPECIMEN / Unknown 11/23/2019 4:09 PM EDT 11/23/2019 4:11 PM EDT Natalia Aguillon APRN.DIRECTOR OF STRATEGIC INITIATIVES LABORATORY Final R esult [facility] [address] [place] [address] [facility] [address] [place] [address] from Last 3 Months or Most Recently Relevant to Health Maintenance Insurance BLUE CARD PPO OOS Care Teams Shingler Relationship Specialty Start Date End Date Pal Natalia, HAT RENOVATOR.DIRECTOR OF STRATEGIC INITIATIVES [address] [place] [address] PCP - General Family Medicine 11/23/19 Huan Barragan [address] [place] [address] Referring Orthopedics 03/31/24 Huan Barragan [address] [place] [address] Referring Orthopedics 04/03/24
--- OUTSIDE RECORDS SUMMARY | 2024-11-06 14:17 | XMS_ITS | Encounter Summary ---
Author Organization [facility] Address [address] [place] [address] Care Team Providers Care Emblem Fuser Tender Name Role Phone Bharti Wallis MD Primary Care Provider [phone] Demetrius Parish MD Primary Care Provider [phone] Encounter Details Date Type Department Care Team (Late st Contact Info) Description 03/18/2023 Abstract [facility] [address] [facility] [place] [address] Huan Barragan DO [address] [place] [address] Social History Tobacco Use Types Packs/Day Years [...] on file Sexual Orientation Not on file COVID-19 Exposure Response Date Recorded In the last 10 days, have yo u been in contact with someone who was confirmed or suspected to have Coronavirus/COVID-19? No / Unsure 03/06/2023 8:42 AM EST documented as of this encounter Plan of Treatment Not on file documented as of this encounter Visit Diagnoses Not on filedocumented in this encounter Care Teams Emblem Fuser Tender Relationship Specialty Start Date End Date Bharti Wallis MD [address] [place] [address] PCP - General Family Medicine 08/07/22 06/18/23 Demetrius Parish MD [address] [place] [address] PCP - General Family Medicine 01/28/24 documented as of this encounter
--- OUTSIDE RECORDS SUMMARY | 2024-11-06 14:17 | XMS_ITS | Encounter Summary ---
Author Organization [facility] Address [address] [place] [address] Care Team Providers Care Foundry Engineer Name Role Phone Natalia Aguillon APRN.NURSES ASSISTANT Primary Care Provider Huan Barragan Unavailable Huan Barragan Unavailable Source Comments In the event this information is protected by the Federal Confidentiality of Alcohol and Drug AbusePatient Records regulations: The Federal rules restrict any use of the information to criminally investigate or prosecute any alcohol or drug abuse patient.[facility] Encounter Details Date Type Department Care Team (Late st Contact Info) Description 12/20/2020 Get Medical [facility] Orthopa[facility] [address] [place] [address] Simon Douglass MD [address] [place], [place] [id number] RE: Upcoming Appointment Question Social History Tobacco Use [...] any clubs o r organizations such as synagogue groups, unions, fraternal or athletic groups, or [...] Answer Date Recorded PHQ-2 score 0 08/06/2020 [facility] Questionnaire Answer Date [...] place to sleep or slept in a assisted (including now)? No 08/06/2020 Area Deprivation Index Answer Date Omid rded National Score (1-100), lower number is lower ri sk Not on file 03/06/2020 State Score (1-10), lower number is lower risk N ot on file 03/06/2020 Data from: https://www.neighborhoodatlas.medicine.[facility].edu/. Last address used for calculation Not on [...] on filedocumented in this encounter Care Teams Foundry Engineer Relationship Specialty Start Date End Date Natalia Aguillon, LIGHTING DIRECTOR.NURSES ASSISTANT [address] [place] [address] PCP - General Family Medicine 11/23/19 Huan Barragan [address] [place] [address] Referring Orthopedics 03/31/24 Huan Barragan [address] [place] [address] Referring Orthopedics 04/03/24 documented as of this encounter
--- OUTSIDE RECORDS SUMMARY | 2024-11-06 14:17 | XMS_ITS | Encounter Summary ---
Author Organization [facility] Address [address] [place] [address] Care Team Providers Care Linen Room Worker Name Role Phone Natalia Aguillon APRN.L TACKER Primary Care Provider Huan Barragan Unavailable Huan Barragan Unavailable Source Comments In the event this information is protected by the Federal Confidentiality of Alcohol and Drug AbusePatient Records regulations: The Federal rules restrict any use of the information to criminally investigate or prosecute any alcohol or drug abuse patient.[facility] Encounter Details Date Type Department Care Team (Late st Contact Info) Description 03/22/2021 Patient Msg Pulmonary Medicine [address] [facility] [address] [place] [address] Jimmy Sharma MD [address] [facility] [address] [place] [address] Breathing test Social History Tobacco Use Types Packs/Day Years [...] often do you attend chur ch or presybeterian services? Never 08/06/2020 Do you belong to any clubs o r organizations such as pentecostal groups, unions, fraternal or athletic groups, or [...] Date Recorded PHQ-2 score 0 08/06/2020 [facility] Answer Date Recorded [...] place to sleep or slept in a long term (including now)? No 08/06/2020 Area Deprivation Index Answer Date Omid rded National Score (1-100), lower number is lower ri sk Not on file 03/06/2020 State Score (1-10), lower number is lower risk N ot on file 03/06/2020 Data from: https://www.neighborhoodatlas.medicine.[facility].edu/. Last address used for calculation [...] have Coronavirus / COVID-19? No / Unsure 03/10/2021 2:48 PM EST documented as of this encounter Functional [...] Entry Date Author No 10/29/2014 2:34 PM Karisas Young RN documented in this encounter Plan of Treatment Not on file documented as of this encounter Visit Diagnoses Not on filedocumented in this encounter Care Teams Linen Room Worker Relationship Specialty Start Date End Date Natalia Aguillon, ELEMENTARY TEACHER.L TACKER [address] [place] [address] PCP - General Family Medicine 11/23/19 Huan Barragan [address] [place] [address] Referring Orthopedics 03/31/24 Huan Barragan [address] [place] [address] Referring Orthopedics 04/03/24 documented as of this encounter
--- OUTSIDE RECORDS SUMMARY | 2024-11-06 14:17 | XMS_ITS | Encounter Summary ---
Author Organization [facility] Address [address] [place] [address] Care Team Providers Care Ferry Pilot Name Role Phone Demetrius Parish MD Primary Care Provider [phone] Reason for Visit * Reason Comments Med Refill Encounter Details Date Type Department Care Team (Late st Contact Info) Description 12/11/2023 Refill [facility] Vascular and Endovascular Surgery [address] [place] [id number] Peter Rouse, SOFTWARE TEST MANAGER [address] [place] [address] Nonrheumatic aortic valve insufficiency; SVT (supraventricular tachycardia) Social History Tobacco Use Types Packs/Day Years Used Date Smoking Tobacco: Never Passive Smoke Exposure: Never Smokeless Tobacco: Never Alcohol Use Standard Drinks/Week Comments Not Currently 0 (1 standard drink = 0.6 oz pur e alcohol) very rarely [facility] Utilities Answer Date Recorded In the past 12 months has popAD, gas, oil, or water Enswers threatened to shut off services in your home? No 09/02/2023 Humiliation, Afraid, Rape, and Kick questionnair e Answer Date Recorded Within the last year, have y ou been afraid of your partner or ex-partner? No 09/26/2023 Within the last year, have y ou been humiliated or emotionally abused in other ways by your partner or ex-partner? No Within the last year, have y ou been kicked, hit, slapped, or otherwise physically hurt by your partner or ex-partner? No 09/26/2023 Within the last year, have y ou been raped or forced to have any kind of sexual activity by your partner or ex-partner? No 09/26/2023 Overall Financial Resource Strain (CARDIA) Answe r Date Recorded How hard is it for you to pa y for the very basics like food, housing, medical care, and heating? Not hard at all 09/02/2023 PHQ-2 Answer Date Recorded Patient Health Questionnaire-2 Score 0 09/19/2023 Transportation Answer Date Recorded In the past 12 months, has l ack of transportation kept you from medical appointments or from getting medications? No 09/02/2023 Lack of Transportation (Non-Medical) Not on file 09/02/2023 Housing Stability Vital Sign Answer Matt e Recorded Unable to Pay for Housing in the Last Year Not o n file 09/02/2023 Number of Places Lived in the Last Year Not on f ile 09/02/2023 In the last 12 months, was t here a time when you did not have a steady place to sleep or slept in a senior living (including now)? No 09/02/2023 Hunger Vital Sign Answer Date Recorded Within the past 12 months, y ou worried that your food would run out before you got the money to buy more. Never true 09/02/19 24 Ran Out of Food in the Last Year Not on file 09/02/2023 Sex and Gender Information Value Date Recorded Sex Assigned at Male 09/14/2023 7:24 AM EDT Legal Sex Male 10:31 AM EDT Gender Identity Male 09/14/2023 7:24 AM EDT Sexual Orientation Heterosexual or Straight 08/30 7:24 AM EDT documented as of this encounter Plan of Treatment Upcoming Encounters Date Type Department Care Team (Late st Contact Info) Description 11/12/2024 2:00 PM EDT Appointment [facility] MR Imaging [address] [place] [address] 11/12/2024 2:30 PM EDT Follow-Up [facility] Surgery Clinic [address] [place] [address] Ninfa Collazo, SOFTWARE TEST MANAGER [address] [place] [phone] 11/24/2024 9:00 AM EDT Procedure Visit [facility] [address] [place] [phone] Kadeem Hernandez MD [address] [place] [address] documented as of this encounter Visit Diagnoses Diagnosis Nonrheumatic aortic valve insufficiency SVT (supraventricular tachycardia) Other specified cardiac dysrhythmias documented in this encounter Care Teams Ferry Pilot Relationship Specialty Start Date End Date Demetrius Parish MD [address] [facility] [place] [address] PCP - General 06/13/23 documented as of this encounter
--- OUTSIDE RECORDS SUMMARY | 2024-11-06 14:17 | XMS_ITS | Encounter Summary ---
Author Organization [facility] Address [address] [place] [address] Care Team Providers Care Machine Long Goods Helper Name Role Phone Natalia Aguillon APRN.WOODYARD CRANE OPERATOR Primary Care Provider Huan Barragan Unavailable Huan Barragan Unavailable Source Comments In the event this information is protected by the Federal Confidentiality of Alcohol and Drug AbusePatient Records regulations: The Federal rules restrict any use of the information to criminally investigate or prosecute any alcohol or drug abuse patient.[facility] Encounter Details Date Type Department Care Team (Late st Contact Info) Description 12/25/2021 Patient Msg Endocrinology [address] [place], [place] [id number] Provider, Ccf Free Exercise Consult Social History Tobacco Use Types Packs/Day Years [...] often do you attend chur ch or tenriism services? Never 08/06/2020 Do you belong to any clubs o r organizations such as confucianism groups, unions, fraternal or athletic groups, or [...] Answer Date Recorded PHQ-2 score 1 08/09/2021 [facility] of Occupat ional [facility] - Occupational Stress Questionnaire Answer Date [...] place to sleep or slept in a jail (including now)? No 07/21/2021 Area Deprivation Index Answer Date Omid rded National Score (1-100), lower number is lower ri sk 84 08/17/2021 State Score (1-10), lower number is lower risk N ot on file 08/17/2021 Data from: https://www.neighborhoodatlas.medicine.[facility].edu/. Last address used for calculation [address] 08/17/2021 Education Answer Date Recorded What is [...] on filedocumented in this encounter Care Teams Machine Long Goods Helper Relationship Specialty Start Date End Date Natalia Aguillon, TWISTER FRAME TENDER.WOODYARD CRANE OPERATOR [address] [place] [address] PCP - General Family Medicine 11/23/19 Huan Barragan [address] [place] [address] Referring Orthopedics 03/31/24 Huan Barragan [address] [place] [address] Referring Orthopedics 04/03/24 documented as of this encounter
--- OUTSIDE RECORDS SUMMARY | 2024-11-06 14:17 | XMS_ITS | Encounter Summary ---
Author Organization [facility] Address [address] [place] [address] Care Team Providers Care Director Of Event Marketing Name Role Phone Khadijah Viera PA-C Primary Care Provider [phone] Sarah Viera DO Primary Care Provider [phone] Natalia Aguillon APRN.WEIGHT ANALYST Primary Care Provider Huan Barragan Unavailable Huan Barragan Unavailable Source Comments In the event this information is protected by the Federal Confidentiality of Alcohol and Drug AbusePatient Records regulations: The Federal rules restrict any use of the information to criminally investigate or prosecute any alcohol or drug abuse patient.[facility] Reason for Visit * Reason Comments PSG Check In Encounter Details Date Type Department Care Team (Late st Contact Info) Description 08/09/2016 Abstract Neurology [address] [id number] Main, Sleep Center [address] [id number] PSG Check In Social History Tobacco Use Types Packs/Day Years [...] of Assessment Author No 10/29/2014 2:34 PM EDKarissa Prado RN * Are you blind or [...] on filedocumented in this encounter Care Teams Director Of Event Marketing Relationship Specialty Start Date End Date Khadijah Viera PA-C [address] [place] [address] PCP - General Anesthesiology 08/09/16 08/09/16 Sarah Viera DO [address] [place] [address] PCP - General Family Medicine 08/14/16 11/22/19 Natalia Aguillon APRN.WEIGHT ANALYST [address] [place] [address] PCP - General Family Medicine 11/23/19 Huan Barragan [address] [place] [address] Referring Orthopedics 03/31/24 Huan Barragan [address] [place] [address] Referring Orthopedics 04/03/24 documented as of this encounter
--- OUTSIDE RECORDS SUMMARY | 2024-11-06 14:17 | XMS_ITS | Encounter Summary ---
Author Organization [facility] Address [address] [place] [address] Care Team Providers Care Lump Room Supervisor Name Role Phone Natalia Aguillon APRN.CIRCUIT CLERK Primary Care Provider Huan Barragan Unavailable Huan Barragan Unavailable Source Comments In the event this information is protected by the Federal Confidentiality of Alcohol and Drug AbusePatient Records regulations: The Federal rules restrict any use of the information to criminally investigate or prosecute any alcohol or drug abuse patient.[facility] Encounter Details Date Type Department Care Team (Late st Contact Info) Description 05/16/2021 Patient Msg Internal Medicine [place] [address] [place], [place] [phone] Provider, Ccf Appointment Social History Tobacco Use Types Packs/Day Years [...] often do you attend chur ch or rastafari services? Never 08/06/2020 Do you belong to any clubs o r organizations such as islam groups, unions, fraternal or athletic groups, or [...] Answer Date Recorded PHQ-2 score 0 08/06/2020 [facility]at ional [facility] - Occupational [...] or slept in a care home (including now)? No 08/06/2020 Area Deprivation Index Answer Date Omid rded National Score (1-100), lower number is lower ri sk Not on file 03/06/2020 State Score (1-10), lower number is lower risk N ot on file 03/06/2020 Data from: https://www.neighborhoodatlas.medicine.[facility].edu/. Last address used for calculation [...] on filedocumented in this encounter Care Teams Lump Room Supervisor Relationship Specialty Start Date End Date Natalia Aguillon, PRINT INSPECTOR.CIRCUIT CLERK [address] [place] [address] PCP - General Family Medicine 11/23/19 Huan Barragan [address] [place] [address] Referring Orthopedics 03/31/24 Huan Barragan [address] [place] [address] Referring Orthopedics 04/03/24 documented as of this encounter
--- OUTSIDE RECORDS SUMMARY | 2024-11-06 14:17 | XMS_ITS | Encounter Summary ---
Author Organization [facility] Address [address] [place] [address] Care Team Providers Care Disease Control Inspector Name Role Phone Natalia Aguillon APRN.NEUROSURGICAL PHYSICIAN ASSISTANT Primary Care Provider Huan Barragan Unavailable Huan Barragan Unavailable Source Comments In the event this information is protected by the Federal Confidentiality of Alcohol and Drug AbusePatient Records regulations: The Federal rules restrict any use of the information to criminally investigate or prosecute any alcohol or drug abuse patient.[facility] Encounter Details Date Type Department Care Team (Late st Contact Info) Description 01/01/2020 Patient Msg [facility] [address] [place] [phone] Basil Eugene [facility] [address] Appointment Cancellation Request Social History Tobacco Use Types Packs/Day Years [...] have Coronavirus / COVID-19? No / Unsure 01/04/2020 9:12 AM EDT documented as of this encounter [...] Assessment Author No 10/29/2014 2:34 PM Karissa oYung RN * Do you have difficulty dressing or bathing? Answer Date of Assessment Author No 10/29/2014 2:34 PM EDT Karissa Humphrey RN * Because of a physical, mental, [...] on filedocumented in this encounter Care Teams Disease Control Inspector Relationship Specialty Start Date End Date Natalia Aguillon APRN.CNP [address] [place] [address] PCP - General Family Medicine 11/23/19 Huan Barragan [address] [place] [address] Referring Orthopedics 03/31/24 Huan Barragan [address] [place] [address] Referring Orthopedics 04/03/24 documented as of this encounter
--- OUTSIDE RECORDS SUMMARY | 2024-11-06 14:17 | XMS_ITS | Encounter Summary ---
Author Organization [facility] Address [facility] [place] [address] Care Team Providers Care Weight Loss Sales Consultant Name Role Phone Natalia Aguillon APRN.CHECKING CLERK Primary Care Provider Huan Barragan Unavailable Huan Barragan Unavailable Source Comments In the event this information is protected by the Federal Confidentiality of Alcohol and Drug AbusePatient Records regulations: The Federal rules restrict any use of the information to criminally investigate or prosecute any alcohol or drug abuse patient.[facility] Encounter Details Date Type Department Care Team (Late st Contact Info) Description 05/07/2024 Patient Msg Internal Medicine [facility] [place] [phone] Provider, Ccf Reminder: Review your MyChart Caregiver(s) Social History Tobacco Use Types Packs/Day Years [...] How often do you attend chur or yazidi services? Patient declined 08/20/2022 Do you belong to any clubs o r organizations such as buddhism groups, unions, fraternal [...] Answer Date Recorded PHQ-2 score 0 04/20/2024 [facility] of Occupat ional Health - Occupational [...] place to sleep or slept in a mcc (including now)? No 08/20/2022 Area Deprivation Index Answer Date Omid rded National Score (1-100), lower number is lower ri sk 78 08/20/2022 State Score (1-10), lower number is lower risk 6 08/20/2022 Data from: https://www.neighborhoodatlas.medicine.[facility].edu/. Last address used for calculation [address] [...] on filedocumented in this encounter Care Teams Weight Loss Sales Consultant Relationship Specialty Start Date End Date Natalia Aguillon, WATER RESOURCE ENGINEER.CHECKING CLERK [address] [place] [address] PCP - General Family Medicine 11/23/19 Huan Barragan [address] [place] [address] Referring Orthopedics 03/31/24 Huan Barragan [address] [place] [address] Referring Orthopedics 04/03/24 documented as of this encounter
--- OUTSIDE RECORDS SUMMARY | 2024-11-06 14:17 | XMS_ITS | Encounter Summary ---
Author Organization [facility] Address [address] [place] [address] Care Team Providers Care Glazier Stained Glass Name Role Phone Sarah Viera Primary Care Provider [phone] Natalia Aguillon APRN.[facility] Primary Care Provider Huan Barragan Unavailable Huan Barragan Unavailable Source Comments In the event this information is protected by the Federal Confidentiality of Alcohol and Drug AbusePatient Records regulations: The Federal rules restrict any use of the information to criminally investigate or prosecute any alcohol or drug abuse patient.[facility] Encounter Details Date Type Department Care Team (Late st Contact Info) Description 10/29/2016 Abstract Neurology [address] [place], [place] [phone] [facility] [address] [phone] Social History Tobacco Use Types Packs/Day Years [...] 10/29/2014 2:34 PM EDKarissa Prado RN * Do you have difficulty dressing or bathing? Answer Date of Assessment Author No 10/29/2014 2:34 PM EDKarissa Prado RN * Because of a physical, mental, [...] on filedocumented in this encounter Care Teams Glazier Stained Glass Relationship Specialty Start Date End Date Sarah Viera DO [address] [place] [address] PCP - General Family Medicine 08/14/16 11/22/19 Natalia Aguillon APRN.CNP [address] [place] [address] PCP - General Family Medicine 11/23/19 Huan Barragan [address] [place] [address] Referring Orthopedics 03/31/24 Huan Barragan [address] [facility] [place] [address] Referring Orthopedics 04/03/24 documented as of this encounter
--- OUTSIDE RECORDS SUMMARY | 2024-11-06 14:17 | XMS_ITS | Encounter Summary ---
Author Organization [facility] Address [address] [place] [address] Care Team Providers Care Floor Finisher Name Role Phone Pcp, No Primary Care Provider Unavailabl e Khadijah Viera PA-C Primary Care Provider [phone] Sarah Viera DO Primary Care Provider [phone] Natalia Aguillon APRN.CREDIT CARD INTERVIEWER Primary Care Provider Huan Barragan Unavailable Huan Barragan Unavailable Source Comments In the event this information is protected by the Federal Confidentiality of Alcohol and Drug AbusePatient Records regulations: The Federal rules restrict any use of the information to criminally investigate or prosecute any alcohol or drug abuse patient.[facility] Reason for Visit * Reason Comments PSG Check In Encounter Details Date Type Department Care Team (Late st Contact Info) Description 06/25/2016 Abstract Neurology [address] [place] [address] Main, Sleep Center [address] [phone] PSG Check In Social History Tobacco Use [...] on filedocumented in this encounter Care Teams Floor Finisher Relationship Specialty Start Date End Date Pcp, No PCP - General 04/24/16 08/08/16 Khadijah Viera PA-C [address] [place] [address] PCP - General Anesthesiology 08/09/16 08/09/16 Sarah Viera DO [address] [facility] [address] PCP - General Family Medicine 08/14/16 11/22/19 Natalia Aguillon APRN.[facility] [address] [place] [address] PCP - General Family Medicine 11/23/19 Huan Barragan [address] [place] [address] Referring Orthopedics 03/31/24 Huan Barragan [address] [place] [address] Referring Orthopedics 04/03/24 documented as of this encounter
--- OUTSIDE RECORDS SUMMARY | 2024-11-06 14:17 | XMS_ITS | Encounter Summary ---
Author Organization [facility] Address [address] [place] [address] Care Team Providers Care Saw Filer Name Role Phone Natalia Aguillon APRN.MANAGER PRODUCT DESIGN Primary Care Provider Huan Barragan Unavailable Huan Barragan Unavailable Source Comments In the event this information is protected by the Federal Confidentiality of Alcohol and Drug AbusePatient Records regulations: The Federal rules restrict any use of the information to criminally investigate or prosecute any alcohol or drug abuse patient.[facility] Encounter Details Date Type Department Care Team (Late st Contact Info) Description 08/16/2022 Patient Msg Internal Medicine [place] [address] [place] [address] Provider, Ccf Update Insurance Social History Tobacco Use Types Packs/Day Years [...] How often do you attend chur or advent services? Patient declined 08/20/2022 Do you belong [...] PHQ-2 Answer Date Recorded PHQ-2 score 0 05/21/2022 [facility] of Occupat ional [facility] - Occupational Stress Questionnaire Answer Date Recorded [...] in a care home (including now)? No 08/20/2022 Area Deprivation Index Answer Date Omid rded National Score (1-100), lower number is lower ri sk 78 08/20/2022 State Score (1-10), lower number is lower risk 6 08/20/2022 Data from: https://www.neighborhoodatlas.medicine.[facility].edu/. Last address used for calculation [address] [...] on filedocumented in this encounter Care Teams Saw Filer Relationship Specialty Start Date End Date Natalia Aguillon, GERMAN TUTOR.MANAGER PRODUCT DESIGN [address] [place] [address] PCP - General Family Medicine 11/23/19 Huan Barragan [address] [facility] [place] [address] Referring Orthopedics 03/31/24 Huan Barragan [address] [place] [address] Referring Orthopedics 04/03/24 documented as of this encounter
--- OUTSIDE RECORDS SUMMARY | 2024-11-06 14:17 | XMS_ITS | Encounter Summary ---
Author Organization [facility] Address [address] [place] [address] Care Team Providers Care Talent Sourcer Name Role Phone Natalia Aguillon APRN.TRUST MANAGER Primary Care Provider Huan Barragan Unavailable Huan Barragan Unavailable Source Comments In the event this information is protected by the Federal Confidentiality of Alcohol and Drug AbusePatient Records regulations: The Federal rules restrict any use of the information to criminally investigate or prosecute any alcohol or drug abuse patient.[facility] Encounter Details Date Type Department Care Team (Late st Contact Info) Description 01/07/2020 Patient Msg Internal Medicine [place] [address] [place] [address] Provider, Ccf CT BRAIN Social History Tobacco Use Types Packs/Day Years [...] have Coronavirus / COVID-19? No / Unsure 01/07/2020 1:08 PM EDT documented as of this encounter [...] Karissa Humphrey RN * Do you have difficulty dressing or bathing? Answer Date of Assessment Author No 10/29/2014 2:34 PM EDT Karissa Humphrey RN * Because of a physical, mental, or emotional condition, do you have difficulty doing errands alone such as visiting a doctor's office or shopping? Answer Date of Assessment Author No 10/29/2014 2:34 PM EDT Karissa Humphrey RN documented as of this encounter Mental Status * Because of a physical, mental, or emotional condition, do you have serious difficulty concentrating, remembering, or making decisions? Answer Entry Date Author No 10/29/2014 2:34 PM EDT Karissa Humphrey RN documented in this encounter Plan of Treatment Not on file documented as of this encounter Visit Diagnoses Not on filedocumented in this encounter Care Teams Talent Sourcer Relationship Specialty Start Date End Date Natalia Aguillon APRN.CNP [address] [place] [address] PCP - General Family Medicine 11/23/19 Huan Barr[place] [address] Referring Orthopedics 03/31/24 Huan Barragan [address] [facility] [place] [address] Referring Orthopedics 04/03/24 documented as of this encounter
--- OUTSIDE RECORDS SUMMARY | 2024-11-06 14:17 | XMS_ITS | Encounter Summary ---
Author Organization [facility] Address [address] [place] [address] Care Team Providers Care Epidemiology Intern Name Role Phone Natalia Aguillon APRN.SOLDERING MACHINE TENDER Primary Care Provider Huan Barragan Unavailable Huan Barragan Unavailable Source Comments In the event this information is protected by the Federal Confidentiality of Alcohol and Drug AbusePatient Records regulations: The Federal rules restrict any use of the information to criminally investigate or prosecute any alcohol or drug abuse patient.[facility] Encounter Details Date Type Department Care Team (Late st Contact Info) Description 01/17/2021 Patient g Navigate [facility] [place] [address] [id number] Provider, Ccf Consult to Pulmonary Medicine Social History Tobacco Use Types Packs/Day Years [...] often do you attend chur ch or scientologist services? Never 08/06/2020 Do you belong to any clubs o r organizations such as advent groups, unions, fraternal or athletic groups, or [...] Answer Date Recorded PHQ-2 score 0 08/06/2020 [facility] - Occupational [...] place to sleep or slept in a longterm (including now)? No 08/06/2020 Area Deprivation Index Answer Date Omid rded National Score (1-100), lower number is lower ri sk Not on file 03/06/2020 State Score (1-10), lower number is lower risk N ot on file 03/06/2020 Data from: https://www.neighborhoodatlas.medicine.[facility].edu/. Last address used for calculation Not on [...] have Coronavirus / COVID-19? No / Unsure 01/17/2021 8:14 AM EDT documented as of this encounter Functional Status * Are you deaf or do you have serious difficulty hearing? Answer Date of Assessment Author No 10/29/2014 2:34 PM EDT Karissa Humphrey RN * Are you blind or do you have serious difficulty seeing, even when wearing glasses? Answer Date of Assessment Author No 10/29/2014 2:34 PM RAFFYT Karissa Humphrey RN * Do you have [...] on filedocumented in this encounter Care Teams Epidemiology Intern Relationship Specialty Start Date End Date Natalia Aguillon, MARKET INTELLIGENCE CONSULTANT.SOLDERING MACHINE TENDER [address] [place] [address] PCP - General Family Medicine 11/23/19 Huan Barragan [address] [place] [address] Referring Orthopedics 03/31/24 Huan Barragan [address] [place] [address] Referring Orthopedics 04/03/24 documented as of this encounter
--- OUTSIDE RECORDS SUMMARY | 2024-11-06 14:17 | XMS_ITS | Encounter Summary ---
Author Organization [facility] Address [address] [place] [address] Care Team Providers Care Bar Staff Name Role Phone Natalia Aguillon APRN.COMPUTER TECHNICAL SUPPORT SPECIALIST Primary Care Provider Huan Barragan Unavailable Huan Barragan Unavailable Source Comments In the event this information is protected by the Federal Confidentiality of Alcohol and Drug AbusePatient Records regulations: The Federal rules restrict any use of the information to criminally investigate or prosecute any alcohol or drug abuse patient.[facility] Encounter Details Date Type Department Care Team (Late st Contact Info) Description 07/26/2021 Patient Msg Pre Anesthesia [address] [facility] [place] [address] [place] [address] Prisca Van PA-C [address] [place] [address] Pre Op Instructions Social History Tobacco Use Types Packs/Day Years [...] often do you attend chur ch or sabianist services? Never 08/06/2020 Do you belong to any clubs o r organizations such as yazidism groups, unions, fraternal or athletic groups, or [...] Answer Date Recorded PHQ-2 score 0 08/06/2020 [facility] Answer Date [...] in a care home (including now)? No 07/21/2021 Area Deprivation Index Answer Date Omid rded National Score (1-100), lower number is lower ri sk 84 07/21/2021 State Score (1-10), lower number is lower risk N ot on file 07/21/2021 Data from: https://www.neighborhoodatlas.medicine.[facility].edu/. Last address used for calculation [address] 07/21/2021 Education Answer Date Recorded What is the [...] suspected to have Coronavirus/COVID-19? No / Unsure 07/25/2021 9:07 AM EDT documented as of this encounter [...] on filedocumented in this encounter Care Teams Bar Staff Relationship Specialty Start Date End Date Natalia Aguillon, CARD PUNCHER.COMPUTER TECHNICAL SUPPORT SPECIALIST [address] [place] [address] PCP - General Family Medicine 11/23/19 Huan Barragan [address] [place] [address] Referring Orthopedics 03/31/24 Huan Barragan [address] [place] [address] Referring Orthopedics 04/03/24 documented as of this encounter
--- OUTSIDE RECORDS SUMMARY | 2024-11-06 14:17 | XMS_ITS | Encounter Summary ---
Author Organization [facility] Address [address] [place] [address] Care Team Providers Care Turbine Measurements Engineer Name Role Phone Natalia Aguillon APRN.LICENSING COORDINATOR Primary Care Provider Huan Barragan Unavailable Huan Barragan Unavailable Source Comments In the event this information is protected by the Federal Confidentiality of Alcohol and Drug AbusePatient Records regulations: The Federal rules restrict any use of the information to criminally investigate or prosecute any alcohol or drug abuse patient.[facility] Encounter Details Date Type Department Care Team (Late st Contact Info) Description 12/24/2019 Get Medical Advice Internal Medicine Cinthia [facility] [place] [address] Provider, Ccf RE: Non-Urgent Medical Question Social [...] have Coronavirus / COVID-19? No / Unsure 12/22/2019 2:50 PM EDT documented as of this encounter [...] Entry Date Author No 10/29/2014 2:34 PM RAFFYT Karissa Humphrey RN documented in this encounter Plan of Treatment Not on file documented as of this encounter Visit Diagnoses Not on filedocumented in this encounter Care Teams Turbine Measurements Engineer Relationship Specialty Start Date End Date Natalia Aguillon APRN.CNP [address] [place] [address] PCP - General Family Medicine 11/23/19 Huan [place] [address] Referring Orthopedics 03/31/24 Huan Barragan [address] [facility] [place] [address] Referring Orthopedics 04/03/24 documented as of this encounter
[2024-11-06 15:26] LABS: Alanine Aminotransferase 37 U/L (16-63); Albumin Globulin Ratio 1.3; Albumin Level 4.2 g/dL (3.4-5.0); Alkaline Phosphatase 79 U/L (46-116); Anion Gap 7.4; Aspartate Amino Transferase 22 U/L (15-37); Blood Urea Nitrogen 18.0 mg/dL (7.0-18.0); Calcium 9.0 mg/dL (8.5-10.1); Carbon Dioxide 32.0 mmol/L (21.0-32.0); Chloride 108 mmol/L (98-107); Estimated GFR (African America >60 (>=60 mL/min/1.73m^2); Estimated GFR (Non-African Ame >60 (>=60 mL/min/1.73m^2); Free T3 3.73 pg/mL (2.18-3.98); Globulin 3.2 g/dL; Glucose 103 mg/dL (74-106); NT Pro B Type Natriuretic Pept 83.0 pg/mL (<=900.0); Potassium 4.4 mmol/L (3.5-5.1); Sodium 143 mmol/L (136-145); Thyroid Stimulating Hormone 1.839 uIU/mL (0.358-3.740); Total Protein 7.4 g/dL (6.4-8.2)
== END 2024-11-06 14:13 | disposition home or self-care (01) ==
PROVIDERS: PCP Family Medicine; Visit Provider Family Medicine
DX: I89.0 Lymphedema, not elsewhere classified (principal); I11.0 Hypertensive heart disease with heart failure; I50.30 Unspecified diastolic (congestive) heart failure
CPT/HCPCS: 36415; 71046; 80053; 83880; 84436; 84443; 84481; 84484

== ENCOUNTER 2024-11-24 15:51 | Outpatient (OUT) | payer OTHER, SELFPAY ==
--- OUTSIDE RECORDS SUMMARY | 2024-09-01 12:35 | XMS_ITS ---
Author Organization [facility] in [place] Address [address] [place] [address] Care Team Providers Care Digital Marketing Apprentice Name Role Phone Conor Praish Primary Care Provider REASON FOR VISIT rf baclofen Medications Medication SIG (Take, Route, Fr equency, Duration) Notes Start Date End Date Status Baclofen 20 MG 1 tablet Orally tid for 30 days Active Encounters Encounter Location Date Provider Diagnosis [facility] [address] [place] [address] 09/01/2024 Conor Parish Lumbar radiculopathy M54.16 Assessments Encounter Date Diagnosis (ICD Code) Assessment Notes Treatment Notes Treatment Clinical Notes Section Notes 09/01/2024 Lumbar radiculopathy (ICD-10 - M54.16) Plan Of Treatment Medication Medication Name Sig Start Date Stop Date Notes Baclofen 20 MG 1 tablet Orally tid for 30 days Progress Notes * Pardeep BAIG EDOB:1970 (53 yo M)Acc No.[id number]:09/01/2024 Patient: Pardeep ARELLANO :1970 A ge:53 Y S ex:Male Address:[address] [place] [address], [id number] * Refills Refill Baclofen Packet, 20 MG, Orally, 90 Tablet, 1 tablet, tid, 30 days, Refills=11 * true * Date: Generated for Printi ng/Fajerig/eTransmitting on: 0 11/24/2024 08:21 AM EDT
--- OUTSIDE RECORDS SUMMARY | 2024-11-06 09:30 | XMS_ITS ---
Author Organization The [facility] in [place] Address [address] [place] [address] Care Team Providers Care Child Care Sitter Name Role Phone Conor Parish Primary Care Provider Allergies Allergen (clinical drug ingredient) Drug/Non Drug Allergy documented on EMR Reaction Allergy Type Onset Date Status gabapentin Gabapentin brain fog Drug Allergy Activ e spironolactone Spironolactone chest pain Drug Allergy Active Substance with 4-cdjcndn-6-methylglu taryl-coenzyme A reductase inhibitor mechanism of action (substance) Statins muscleaches Drug Allergy Active Results Component Value Reference Range Notes BNP Reviewed date:11/06/2024 04:02:20 PM Interpretation: Performing Lab: Notes/Report: The [facility] , NT Pro B Type Natriuretic Pept 83.0 <=900.0 pg /mL Performing Lab: see note ML - [facility] LB PROF 14(COMP METB) Reviewed date:11/06/2024 04:02:20 PM Interpretation: Performing Lab: Notes/Report: [facility] , Sodium 143 136-145 mmol/L Potassium 4.4 3.5-5.1 mmol/L Chloride 108 98-107 mmol/L Carbon Dioxide 32.0 21.0-32.0 mmol/L Anion Gap 7.4 Glucose 103 74-106 mg/dL Blood Urea Nitrogen 18.0 7.0-18.0 mg/dL Creatinine 1.06 0.70-1.30 mg/dL Estimated GFR ( Nika >60 >=60 mL/mi n/1.73m 2 Estimated GFR (Non- Magy >60 >=60 mL/mi n/1.73m 2 BUN Creatinine Ratio 17.0 Calcium 9.0 8.5-10.1 mg/dL Bilirubin Total 0.6 0.2-1.0 mg/dL Aspartate Amino Transferase 22 15-37 U/L Alanine Aminotransferase 37 16-63 U/L Alkaline Phosphatase 79 46-116 U/L Total Protein 7.4 6.4-8.2 g/dL Albumin Level 4.2 3.4-5.0 g/dL Globulin 3.2 Albumin Globulin Ratio 1.3 Performing Lab: see note ML - [facility] LB REASON FOR VISIT Presents to office with for c/o increase in lymphedema for past couple of weeks., Also noticedblisters to left upper arm 4 days ago. Some draining yellowish fluid and one was actually draining blood Medications Medication SIG (Take, Route, Frequency, Duration) Notes Start Date End Date Status Farxiga 10 MG 1 tablet Orally Once a day for 30 days 09/12/2023 Active Gabapentin 400 MG 1 capsule Orally bid Active HYDROcodone-Acetaminophen 7.5-325 MG 1 tablet as needed Orally TID-QID 08/21/2023 Active Mupirocin 2 % 1 application Health Care Legal Assistant ally Twice a day for 5 days 11/06/2024 Active Doxycycline Monohydrate 100 MG 1 tablet Orally bid for 10 days 11/06/2024 Active Aspirin 81 81 MG 1 tablet Orally Once a day Active Baclofen 20 MG 1 tablet Orally bid for 30 days Active Cefdinir 300 MG 2 capsule Orally onc e a day for 10 days 11/06/2024 Active Warfarin Sodium 5 MG 1 tablet Orally Once a day Active Vitamin D (Cholecalciferol) 50 MCG (1999 UT) 1 capsule Orally Once a day Active PriLOSEC OTC 20 MG 2 tablet 30 minutes before morning meal Orally Once a day Active Lasix 40 MG 1 tablet Orally Once a day Active Metoprolol Succinate 25 MG 1 capsule Ora lly Once a day Active Social History Tobacco Use: Social History Observation Description Date Details (start date - stop date) Never Smoker NA - NA Tobacco Use/Smoking Question Answer Notes Patient is a nonsmoker AUDIT-C (Standard) Question Answer Notes Did you have a drink containing alcohol in the p ast year? No Points 0 Interpretation Negative Problems Problem Type SNOMED Code ICD Code Onset Dates Problem Status W/U Status Risk Notes Problem Lymphedema (85971038) Lymphedema (I89.0) Active confirmed Vital Signs Weight 371.6 lbs 11/06/2024 Height 73 in 11/06/2024 Blood pressure systolic 118 mm Hg 11/07/19 25 Blood pressure diastolic 60 mm Hg 025 BMI 49.02 kg/m2 11/06/2024 Procedures Procedure Date Ordered Date Performed Result Body Sit e CARDIO Echocardiogram 11/06/2024 N/A Encounters Encounter Location Date Provider Diagnosis [facility] [address] [facility] [place] [address] 11/06/2024 Conor Parish Lymphedema I89.0 Assessments Encounter Date Diagnosis (ICD Code) Assessment Notes Treatment Notes Treatment Clinical Notes Section Notes 11/06/2024 Lymphedema (ICD-10 - I89.0) Plan Of Treatment Medication Medication Name Sig Start Date Stop Date Notes Mupirocin 2 % 1 application Health Care Legal Assistant ally Twice a day for 5 days 11/06/2024 Doxycycline Monohydrate 100 MG 1 tablet Orally bid for 10 days 11/06/2024 Cefdinir 300 MG 2 capsule Orally onc e a day for 10 days 11/06/2024 Pending Test Test Name Order Date CARDIO Echocardiogram 11/06/2024 High Sensitivity Troponin 11/06/2024 XR CHEST 2 V 11/06/2024 THYROID PANEL (T4/TSH/FREE T3) Progress Notes * Pardeep BAIG EDOB:1970 (54 yo M)Acc No.[id number]:11/06/2024 Progress Note Patient: Pardeep ARELLANO Provider: Dominik Parish ([facility])MD :1970 A ge:54 Y S ex:Male Date:11/06/2024 Address:[address] [place] [address] [id number] Check In:01:20 PM ESTCheck O ut:02:02 PM EST Subjective: * Chief Complaints: * P resents to office with for c/o increase in lymphedema for past couple of weeks.Also noticed blisters to left upper arm 4 days ago. Some draining yellowish fluid and one was actually draining blood * HPI: G eneral: doing weel weiht diet and limiting sale on [employer] - fofr valve Lft arm lymphedema - some open area dn jacob. * Active Problem List G57.12 Meralgia paresthetic a, left lower limb Modified On:07/11/2023 Status:confirmed R20.0 Anesthesia of skin Modified On:02/13/2021 Status:confirmed R20.2 Paresthesia of skin Modified On:02/13/2021 Status:confirmed M79.605 Pain of left lower e xtremity Modified On:02/13/2021 Status:confirmed M50.90 Cervical disc diseas e Modified On:04/25/2022 Status:confirmed G57.10 Meralgia paresthetic a Modified On:04/25/2022 Status:confirmed M51.27 Herniated nucleus pu lposis of lumbosacral region Modified On:07/11/2023 Status:confirmed S86.012S Strain of left Achil les tendon, sequela Modified On:06/11/2023U Status:confirmed M72.2 Plantar fascial fibr omatosis Modified On:06/11/2023 Status:confirmed M76.61 Achilles tendinitis, right leg Modified On:06/11/2023 Status:confirmed M77.31 Calcaneal spur, righ t foot Modified On:06/11/2023 Status:confirmed M25.579 Ankle pain Modified On:02/20/2023 Status:confirmed M79.673 Foot pain Modified On:02/20/2023 Status:confirmed R78.81 Bacteremia Modified On:06/07/2023 Status:confirmed G47.30 Sleep apnea Modified On:06/27/2023U Status:confirmed I10 BP (high blood press ure) Modified On:06/27/2023 Status:confirmed E78.00 High cholesterol Modified On:06/27/2023 Status:confirmed E44.0 Moderate malnutritio n Modified On:06/27/2023 Status:confirmed D50.9 Anemia, iron deficie ncy Modified On:04/11/2024W/U Status:confirmed I35.1 Nonrheumatic aortic (valve) insufficiency Modified On:07/19/2023U Status:confirmed M54.16 Lumbar radiculopathy Modified On:08/28/2023/U Status:confirmed I31.9 Pericardial effusion Modified On:09/12/2023U Status:confirmed M77.32 Calcaneal spur, left foot Modified On:09/13/2023/U Status:confirmed K64.8 Internal hemorrhoid Modified On:03/16/2024/U Status:confirmed R16.0 Hepatomegaly Modified On:04/02/2024/U Status:confirmed R09.89 Ejection fraction < 50% Modified On:07/14/2024 Status:confirmed I89.0 Lymphedema Modified On:11/06/2024 Status:confirmed * Medical History: * Surgical History: s houlder replacement arpal Tunnel release Bilateral 2021Vasectomy 2015left Achilles repair, EPF, removal of calcaneal spur and flexor hallucis longus tendon transfer 3Kidney Stone Removal Aortic Valve Replacement 4Pericardiocentesis 09/03/23Epidural injections olonoscopy- Dr Connolly 03/13/24Colonoscopy- Dr Connolly 04/17/2024 * Hospitalization/Major Diagno stic Procedure: s ee above * Family History: F ather: , lung cancer, diagnosed with Other malignant neoplasm of unspecified site.?Mother: , seizure disorder. B rother(s): alive. 1 brother(s) . . * Social History: T obacco Use: T obacco Use/Smoking P atient is a n onsmoker D rug/Alcohol: A JATIN-C (Standard) D id you have a drink containing alcohol in the past year? N o P oints 0 I nterpretation N egative * Medications: T akingAspirin 81(Aspirin) 81 MG Tablet Delayed Release 1 tablet Orally Once a day Baclofen 20 MG Packet 1 tablet Orally bid Farxiga(Dapagliflozin Propanediol) 10 MG Tablet 1 tablet Orally Once a day Gabapentin 400 MG Capsule 1 capsule Orally bid HYDROcodone-Acetaminophen 7.5-325 MG Tablet 1 tablet as needed Orally TID-QID Lasix(Furosemide) 40 MG Tablet 1 tablet Orally Once a day Metoprolol Succinate 25 MG Capsule ER 24 Hour Sprinkle 1 capsule Orally Once a day PriLOSEC OTC(Omeprazole Magnesium) 20 MG Tablet Delayed Release 2 tablet 30 minutes before morning meal Orally Once a day Vitamin D (Cholecalciferol) 50 MCG (2000 UT) Capsule 1 capsule Orally Once a day Warfarin Sodium 5 MG Tablet 1 tablet Orally Once a day Taking Aspirin 81(Aspirin) 81 MG Tablet Delayed Release 1 tablet Orally Once a day Taking Baclofen 20 MG Packet 1 tablet Orally bid Taking Farxiga(Dapagliflozin Propanediol) 10 MG Tablet 1 tablet Orally Once a day Taking Gabapentin 400 MG Capsule 1 capsule Orally bid Taking HYDROcodone-Acetaminophen 7.5-325 MG Tablet 1 tablet as needed Orally TID-QID Taking Lasix(Furosemide) 40 MG Tablet 1 tablet Orally Once a day Taking Metoprolol Succinate 25 MG Capsule ER 24 Hour Sprinkle 1 capsule Orally Once a day Taking PriLOSEC OTC(Omeprazole Magnesium) 20 MG Tablet Delayed Release 2 tablet 30 minutes before morning meal Orally Once a day Taking Vitamin D (Cholecalciferol) 50 MCG (2000 UT) Capsule 1 capsule Orally Once a day Taking Warfarin Sodium 5 MG Tablet 1 tablet Orally Once a day DiscontinuedColchicine 0.6 MG Tablet 1 tablet Orally Twice a day Gabapentin 800 MG Tablet TAKE 1 TABLET BY MOUTH TWICE A DAY TAKE ALONG WITH 400MG TAB AT NOON FOR 30 DAYS Spironolactone 25 MG Tablet 12.5mg Orally every morning Valsartan 40 MG Tablet 1 tablet Orally once daily Zetia(Ezetimibe) 10 MG Tablet 1 tablet Orally Once a day Medication List reviewed and reconciled with the patientDiscontinued Colchicine 0.6 MG Tablet 1 tablet Orally Twice a day Discontinued Gabapentin 800 MG Tablet TAKE 1 TABLET BY MOUTH TWICE A DAY TAKE ALONG WITH 400MG TAB AT NOON FOR 30 DAYS Discontinued Spironolactone 25 MG Tablet 12.5mg Orally every morning Discontinued Valsartan 40 MG Tablet 1 tablet Orally once daily Discontinued Zetia(Ezetimibe) 10 MG Tablet 1 tablet Orally Once a day Medication List reviewed and reconciled with the patient * Allergies: S pironolactone: chest painGabapentin: brain fogStatins: muscleaches Objective: * Vitals: W t:371.6lbs, Ht: 73 in, BP:118/60mm Hg, BMI:49.02Index, Ht-cm: 185.42 cm, Wt-k.56 kg. * Examination: A bdomen Exam:: L ef arm iwhnt mederat swelling -. Assessment: * Assessment: 1. L ymphedema - I89.0 (Primary) Plan: * Treatment: * Labs: * L ab: PROF 14(COMP METB) (Collection Date & Time - 11/06/2024 02:23 PM) L ab: BNP (Collection Date & Time - 11/06/2024 02:23 PM) * Procedure Codes: * Preventive Medicine: Screenings/Counseling: B AK ACTION PLAN Above Normal BMI Follow-up D ietary management education, guidance, and counseling See treatment section of progress note for complete details of management plan. * * Sign off status: Completed Visit Status: C HK (Check Out) true * Provider: Dominik Parish ([facility])MD Date: 0 11/06/2024 Generated for Franciei derek/Aashish/eTransmitting on: 0 11/24/2024 03:54 PM EDT History and Physical Notes * HPI (History of Present Illness) Category Sub-Category Detail Notes Category Not es General doing weel weiht diet and limiting sale on coujmading - fofr valve Lft arm lymphedema - some open area dn dranage Examination Category Sub-Category Detail Notes Category Not es Abdomen Exam: Lef arm iwhnt mederat swelling -
--- OUTSIDE RECORDS SUMMARY | 2024-11-06 12:01 | XMS_ITS ---
Author Organization The [facility] in [place] Address [address] [place] [address] Care Team Providers Care Directional Bore Operator Name Role Phone Conor Parish Primary Care Provider [phone] REASON FOR VISIT review and cxr- Encounters Encounter Location Date Provider Diagnosis [facility] [address] [place] [address] 11/06/2024 Conor Parish Plan Of Treatment No Information Progress Notes * Pardeep BAIG EDOB:1970 (54 yo M)Acc No.[id number]:11/06/2024 Patient: Pardeep ARELLANO Karissa :1970 A ge:54 Y S ex:Male Address:[address] [place] [address], [id number] * true * Date: Generated for Printi ng/Fajerig/eTransmitting on: 0 11/24/2024 08:21 AM EDT
--- OUTSIDE RECORDS SUMMARY | 2024-11-12 13:19 | XMS_ITS | Encounter Summary ---
Author Organization [facility] Address [address] [place] [address] Care Team Providers Care Labor And Employment Paralegal Name Role Phone Demetrius Parish MD Primary Care Provider [phone] Reason for Referral * Imaging (Routine) - Authorized Specialty Diagnoses / Procedures Referred By Contac t Referred To Contact Radiology Diagnoses Thoracic spondylosis Procedures MR thoracic spine wo contrast Ninfa Collazo CNP [address] [place] [address] Phone: tel: fax: [facility] MR Imaging [address] [place] [address] Phone: tel: fax: Referral ID Status Reason Start Date Expiration Date V isits Requested Visits Authorized [id number] Authorized 10/21/2024 10/21/2025 1 1 Reason for Visit * Imaging (Routine) - Authorized Specialty Diagnoses / Procedures Referred By Contac t Referred To Contact Radiology Diagnoses Thoracic spondylosis Procedures MR thoracic spine wo contrast Ninfa Collazo CNP [address] [place] [address] Phone: tel: fax: [facility] MR Imaging [address] [place] [address] Phone: tel: fax: Referral ID Status Reason Start Date Expiration Date V isits Requested Visits Authorized [id number] Authorized 10/21/2024 10/21/2025 1 1 Encounter Details Date Type Department Care Team (Latest Contact Info) Description 11/12/2024 1:19 PM EDT - 11/12/2024 11:59 PM EDT Hospital Encounter [facility] MR Imaging [address] [place] [id number] Thoracic spondylosis Discharge Disposition: Home or Self Care () Social History Tobacco Use Types Packs/Day Years Used Date Smoking Tobacco: Never Passive Smoke Exposure: Never Smokeless Tobacco: Never Alcohol Use Standard Drinks/Week Comments Not Currently 0 (1 standard drink = 0.6 oz pur e alcohol) very rarely [facility] Utilities Answer Date Recorded In the past [...] any time in the past 12 m [facility], were you homeless or living in a senior care (including now)? No 06/25/2024 Hunger Vital Sign [...] AM EDT documented as of this encounter Medications at Time of Discharge aspirin 81 mg EC tablet Take 81 mg by mouth in the morning. baclofen (Lioresal) 20 mg tablet Take 20 mg by mouth in the morning, afternoon, and at bedtime. 07/11/2023 cefdinir (Omnicef) 300 mg capsule 2 capsules 1 (one) time each day at the same time. 11/06/2024 cholecalciferol, vitamin D3, 50 mcg (2,000 unit) capsule 1 capsule 1 (one) time each day at the same time. colchicine 0.6 mg tablet Take 0.6 mg by mouth in the morning. 09/12/2023 cyanocobalamin (Vitamin B-12) 1,000 mcg tablet Take 1,000 mcg by mouth in the morning. doxycycline (Adoxa) 100 mg tablet every 12 (twelve) hours. 11/06/2024 ezetimibe (Zetia) 10 mg tablet Take 10 mg by mouth in the morning. 02/03/2024 HYDROcodone-acetam inophen (Hillburn) 7.5-325 mg tablet Take 1 tablet by mouth every 12 (twelve) hours if needed. 08/21/2023 metoprolol succinate XL (Toprol-XL) 25 mg 24 hr tabletIndications: Nonrheumatic aortic valve insufficiency,SVT (supraventricular tachycardia) Take 1 tablet (25 mg) by mouth in the morning. 90 tablet 3 02/03/2024 multivitamin tablet Take 1 tablet by mouth in the morning. omeprazole (PriLOSEC) [address] capsuleIndications :Nonrheumatic aortic valve insufficiency,SVT (supraventricular tachycardia) TAKE 1 CAPSULE (40 MG) BY MOUTH BEFORE BREAKFAST 90 capsule 2 07/30/2024 spironolactone (Aldactone) 25 mg tabletIndications: Benign hypertensive heart disease without congestive heart failure Take 1 tablet (25 mg) by mouth once daily as directed. 90 tablet 3 10/27/2024 6 valsartan (Diovan) 40 mg tablet Take 40 mg by mouth in the morning. 09/07/2023 warfarin (Coumadin) 5 mg tablet Take 5 mg by mouth. Take as directed per After Visit Summary. furosemide (Lasix) 20 mg tabletIndications: Pericardial effusion Take 1 tablet (20 mg) by mouth in the morning. 90 tablet 3 10/07/2023 5 documented as of this encounter Plan of Treatment Upcoming Encounters Date Type Department Care Team (Late st Contact Info) Description 12/09/2024 12:00 PM EDT Appointment [facility] MR Imaging [facility] [place] [address] 12/09/2024 12:45 PM EDT Appointment [facility] MR Imaging [facility] [place] [address] 12/09/2024 1:30 PM EDT Follow-Up [facility] Surgery [facility] [address] [place] [phone] Ninfa Collazo, LEODAN [address] [place] [phone] 12/17/2024 11:20 AM EDT Office Visit [facility] [address] [place] [address] [place] [phone] Minerva Smith MD [address] [place], [place] [phone] documented as of this encounter Procedures Procedure Name Priority Date/Time Associated Diagnosis Comments MR THORACIC SPINE WO CONTRAST Routine 11/12/2024 2:46 PM EDT Thoracic spondylosis documented in this encounter Results * MR thoracic spine wo contrast (11/12/2024 2:46 PM EDT) Anatomical Region Laterality Modality Spine, T-spine Magnetic Resonan ce 11/13/2024 7:51 AM EDT Impressions 11/13/2024 8:00 AM EDT 1. Spinal cord syrinx, 4 mm in maximal diameter, extending from approximately T6-T7 through T7-T8. Remainder of the cord without focal signal abnormality. 2. Multilevel primarily discogenic changes, without evidence of high-grade spinal or canal foraminal stenosis, as described. THIS REPORT CONTAINS A SIGNIFICANT RESULT AND/OR RECOMMENDATION, WHICH REQUIRES THE ATTENTION OF THE LICENSED CAREGIVER RESPONSIBLE FOR THIS PATIENT. THEREFORE, I SPECIFICALLY DESIGNATED THIS REPORT TO BE TELEPHONED BY THE RADIOLOGY DEPARTMENT. FINDINGS WERE INSTRUCTED TO BE CALLED TO THE CLINICAL SERVICE ON 11/13/2024 8:00 AM Electronically signed: Twyla Frost. Narrative 11/13/2024 8:00 AM EDT MR THORACIC SPINE WO CONTRAST: 11/12/2024 PROVIDED HISTORY: * 54 years old Male * Mid-back pain, neuro deficit * r/o stenosis, cord compression, BLE weakness, difficulty with balance and falls. COMPARISON: 06/21/2023 TECHNIQUE: Multiplanar multisequence imaging of the lumbar spine was performed. Examination without the administration of intravenous contrast. Findings: Mild thoracic kyphosis straightening. Minimal grade 1 anterolisthesis T4-T5, favored degenerative. Vertebral body heights and facet joint alignment is relatively preserved. T6 benign intraosseous hemangioma. No suspicious marrow signal abnormality. Spinal cord syrinx measuring up to 4 mm in maximal diameter extending from approximately T6-T7 to T7-T8. Remainder the cord is not expanded, without additional focal signal abnormality. Conus medullaris terminus at approximately L1. Multifocal discogenic changes cause indentation of the ventral thecal sac without significant deformation of the ventral cord, for example at left central T4-T5, central T5-T6, left subarticular T6-T7, T7-T8, without evidence of high-grade spinal canal stenosis. No evidence of high-grade stenosis. Paravertebral soft tissues are within normal limits. No acute process in the visualized thoracic compartment. Procedure Note Twyla Frost MD - 11/13/2024 MR THORACIC SPINE WO CONTRAST: 11/12/2024 PROVIDED HISTORY: *54 years old Male *Mid-back pain, neuro deficit *r/o stenosis, cord compression, BLE weakness, difficulty with balanceand falls. COMPARISON: 06/21/2023 TECHNIQUE: Multiplanar multisequence imaging of the lumbar spine wasperformed. Examination without the administration of intravenous contrast. Findings: Mild thoracic kyphosis straightening. Minimal grade 1 anterolisthesisT4-T5, favored degenerative. Vertebral body heights and facet joint alignment is relatively preserved.T6 benign intraosseous hemangioma. No suspicious marrow signal abnormality. Spinal cord syrinx measuring up to 4 mm in maximal diameter extendingfrom approximately T6-T7 to T7-T8. Remainder the cord is not expanded,without additional focal signal abnormality. Conus medullaris terminus atapproximately L1. Multifocal discogenic changes cause indentation of the ventral thecalsac without significant deformation of the ventral cord, for example at leftcentral T4-T5, central T5-T6, left subarticular T6-T7, T7-T8, without evidenceof high-grade spinal canal stenosis. No evidence of high-grade stenosis. Paravertebral soft tissues are within normal limits. No acute process in the visualized thoracic compartment. IMPRESSION: 1.Spinal cord syrinx, 4 mm in maximal diameter, extending from approximately T6-T7 through T7-T8. Remainder of the cord without focalsignal abnormality. 2.Multilevel primarily discogenic changes, without evidence ofhigh-grade spinal or canal foraminal stenosis, as described. THIS REPORT CONTAINS A SIGNIFICANT RESULT AND/OR RECOMMENDATION, WHICHREQUIRES THE ATTENTION OF THE LICENSED CAREGIVER RESPONSIBLE FOR THIS PATIENT. THEREFORE, I SPECIFICALLY DESIGNATED THIS REPORT TO BE TELEPHONED BY THE RADIOLOGY DEPARTMENT. FINDINGS WERE INSTRUCTED TO BE CALLED TO THE CLINICAL SERVICE ON 58:00 AM Electronically signed: Twyla Frost. Ninfa Collazo CNP IM MRI PROCEDURES Final Resul t documented in this encounter Visit Diagnoses Diagnosis Thoracic spondylosis documented in this encounter Care Teams Labor And Employment Paralegal Relationship Specialty Start Date End Date Demetrius Parish MD [facility] [place] [address] PCP - General 06/13/23 documented as of this encounter
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
--- OUTSIDE RECORDS SUMMARY | 2024-11-24 09:00 | XMS_ITS | Encounter Summary ---
Author Organization [facility] Address [address] [place] [address] Care Team Providers Care Acoustical Material Worker Name Role Phone Demetrius Parish MD Primary Care Provider [phone] Reason for Visit * Reason Comments EMG BLE * Physical Med/Rehab (Routine) - Pending Review Specialty Diagnoses / Procedures Referred By Contac t Referred To Contact Physical Medicine and Rehabilitation Diagnoses Lumbar radiculopathy Procedures EMG Ninfa Collazo, FRONT OFFICE DEVELOPER [address] [place] [address] Phone: tel: fax: Kadeem Hernandez MD [address] [place] [address] Referral ID Status Reason Start Date Expiration Date V isits Requested Visits Authorized [id number] Pending Review 10/21/2024 10/21/2025 1 1 Encounter Details Date Type Department Care Team (Late st Contact Info) Description 11/24/2024 9:00 AM EDT Procedure Visit [facility] Phys Med and Rehab [address] [place] [phone] Kadeem Hernandez MD [address] [place] [address] Lumbar radiculopathy Social History Tobacco Use Types Packs/Day Years Used Date Smoking Tobacco: Never Passive Smoke Exposure: Never Smokeless Tobacco: Never Alcohol Use Standard Drinks/Week Comments Not Currently 0 (1 standard drink = 0.6 oz pur e alcohol) very rarely [facility] Utilities Answer Date Recorded In the past 12 months has th e electric, gas, oil, or water company threatened to shut off services in your home? No 06/25/2024 Humiliation, Afraid, Rape, and Kick questionnair e Answer Date Recorded Within the last year, have y ou been afraid of your partner or ex-partner? No 11/24/2024 Within the last year, have y ou been humiliated or emotionally abused in other ways by your partner or ex-partner? No Within the last year, have y ou been kicked, hit, slapped, or otherwise physically hurt by your partner or ex-partner? No 11/24/2024 Within the last year, have y ou been raped or forced to have any kind of sexual activity by your partner or ex-partner? No 11/24/2024 Overall Financial Resource Strain (CARDIA) Answe r Date Recorded How hard is it for you to pa y for the very basics like food, housing, medical care, and heating? Not very hard 06/25/2024 PHQ-2 Answer Date Recorded Patient Health Questionnaire-2 Score 0 11/24/2024 Transportation Answer Date Recorded In the past [...] any time in the past 12 m [facility], were you homeless or living in a correction (including now)? No 06/25/2024 Hunger Vital Sign [...] documented as of this encounter Functional Status documented as of this encounter Progress Notes * Kadeem Hernandez MD - 11/24/2024 9:00 AM EDT ASSESSMENT/PLAN: Pardeep was seen today for emg. Diagnoses and all orders for this visit: Lumbar radiculopathy - EMG Ninfa Collazo, LEODAN EMG Impression: Normal EMG and NCS of the lower extremities* *May be noteworthy given that this patient has numbness and tingling in the lateral thigh area thatEMG and NCS is not always reliable in evaluating LFCN injury. If there is high clinical suspicion of this, could consider injection for both diagnostic and treatment purposes. No evidence of peripheral neuropathy, radiculopathy or mononeuropathy despite MRI findings including disc protrusion affecting the L5 nerve root. Plan: F/U with the referring provider for the next step in treatment Kadeem Hernandez MD SUBJECTIVE: Pardeep Engel is a 54 y.o. male who presents to [facility] today for EMG and nerve conduction study HPI: This patient reports a history of right sided numbness and tingling mostly over the lateral thigh. Does report occasional radiation below the knee. Seems worse with activity including standing walking or lifting. Review of Systems No fevers or chills Problem List[1] Medications Prior to Visit[2] Allergies[3] OBJECTIVE: There were no vitals filed for this visit. There is no height or weight on file to calculate BMI. Physical Exam: No definite atrophy, no fasciculations Studies Reviewed: MRI report of the lumbar spine was reviewed Procedures: Lima Protocol / Time: Immediately prior to the procedure a time out was called. Relevant documents were present and verified. Site/side verified. Patient identity confirmed verbally with patient. This timeout verifies correct patient, procedure, equipment, operations support professionals and site/side were marked as required. Verbal consent was obtained, and consent given by patient. Risks of the procedure and alternatives discussed as below and include bleeding, infection and pain. Pneumothorax is an additional risk for needle studies near the lung area. Patient was agreeable to proceed with testing. Please see the scanned copy of the EMG report in the chart for additional details regarding the findings on today's electrodiagnostic study. Peroneal: Normal latency and amplitude, normal conduction velocity Tibial: Normal latency and amplitude Sural: Normal latency and amplitude Needle study: No spontaneous activity, normal recruitment and no evidence of polyphasic potentials were appreciated See above for Impression NOTE: Nerves in the tabulated EMG report that do not have a latency or amplitude value listed should be interpreted as no response This note was completed using a voice planting supervisor system. Every effort was made to ensure accuracy; however, inadvertent computerized planting supervisor errors may be present, please contact MD if any information is unclear. [1] Patient Active Problem List Diagnosis Bacteremia Chronic bilateral low back pain without sciatica Acute bacterial endocarditis Nonrheumatic aortic valve insufficiency Morbid obesity (CMS/HCC) Nonrheumatic mitral valve regurgitation Other hyperlipidemia Stenosis of left carotid artery JACOBY (obstructive sleep apnea) History of colon polyps Pulmonary nodules Aortic valve disorder Acute blood loss as cause of postoperative anemia Atelectasis Acute postoperative respiratory insufficiency SVT (supraventricular tachycardia) (CMS/HCC) Arthralgia of multiple sites Carpal tunnel syndrome, bilateral Diabetes (CMS/HCC) Environmental allergies Primary hypertension Fatty metamorphosis of liver GERD (gastroesophageal reflux disease) Impaired fasting blood sugar Lightheadedness Mediastinal hematoma Obesity, Class III, BMI 40-49.9 (morbid obesity) Post-operative state Prediabetes Primary insomnia S/P shoulder replacement, left Shortness of breath Prostate cancer screening Wheezing S/P AVR Herniation of intervertebral disc between L5 and S1 Lumbar stenosis Pericardial effusion Elevated glucose Nontraumatic tear of left rotator cuff Prosthetic joint infection (HFpEF) heart failure with preserved ejection fraction (CMS/HCC) Chest pain Achilles tendinitis, right leg Anesthesia of skin Calcaneal spur, left foot Calcaneal spur, right foot Cervical disc disease Displacement of lumbar intervertebral disc without myelopathy Internal hemorrhoid Iron deficiency anemia Lumbar radiculopathy Malnutrition of moderate degree (Lynn: 60% to less than 75% of standard weight) Ankle pain Foot pain Paresthesia of skin Plantar fascial fibromatosis Strain of left Achilles tendon [2] Outpatient Medications Prior to Visit Medication Sig Dispense Refill aspirin 81 mg EC tablet Take 81 mg by mouth in the morning. baclofen (Lioresal) 20 mg tablet Take 20 mg by mouth in the morning, afternoon, and at bedtime. cefdinir (Omnicef) 300 mg capsule 2 capsules 1 (one) time each day at the same time. cholecalciferol, vitamin D3, 50 mcg (2,000 unit) capsule 1 capsule 1 (one) time each day at the same time. colchicine 0.6 mg tablet Take 0.6 mg by mouth in the morning. cyanocobalamin (Vitamin B-12) 1,000 mcg tablet Take 1,000 mcg by mouth in the morning. dapagliflozin propanediol (Farxiga) 10 mg Take 1 tablet (10 mg) by mouth once daily as directed. 90tablet 3 doxycycline (Adoxa) 100 mg tablet every 12 (twelve) hours. ezetimibe (Zetia) 10 mg tablet Take 10 mg by mouth in the morning. furosemide (Lasix) 40 mg tablet TAKE 1 TABLET BY MOUTH EVERY DAY IN THE MORNING 90 tablet 2 HYDROcodone-acetaminophen ([place]) 7.5-325 mg tablet Take 1 tablet by mouth every 12 (twelve) hours if needed. metoprolol succinate XL (Toprol-XL) 25 mg 24 hr tablet Take 1 tablet (25 mg) by mouth in the morning. 90 tablet 3 multivitamin tablet Take 1 tablet by mouth in the morning. omeprazole (PriLOSEC) [address] capsule TAKE 1 CAPSULE (40 MG) BY MOUTH BEFORE BREAKFAST 90 capsule 2 spironolactone (Aldactone) 25 mg tablet Take 1 tablet (25 mg) by mouth once daily as directed. 90 tablet 3 valsartan (Diovan) 40 mg tablet Take 40 mg by mouth in the morning. warfarin (Coumadin) 5 mg tablet Take 5 mg by mouth. Take as directed per After Visit Summary. No facility-administered medications prior to visit. [3] Allergies Allergen Reactions Atorvastatin Other Myalgias Gabapentin Other Spironolactone Other Fkwefqe-Niz-Aws Reductase Inhibitors Other documented in this encounter Plan of Treatment Upcoming Encounters Date Type Department Care Team (Late st Contact Info) Description 12/09/2024 12:00 PM EDT Appointment [facility] MR Imaging [address] [place] [address] 12/09/2024 12:45 PM EDT Appointment [facility] [address] [place] [address] 12/09/2024 1:30 PM EDT Follow-Up [facility] Surgery Clinic [address] [place] [address] Ninfa Collazo CNP [address] [place] [address] 12/17/2024 11:20 AM EDT Office Visit [facility] Pain Medicine [address] [place] [address] [place] [address] Minerva Smith MD [address] [place] [address] documented as of this encounter Visit Diagnoses Diagnosis Lumbar radiculopathy Thoracic or lumbosacral neuritis or radiculitis, unspecified documented in this encounter Care Teams Acoustical Material Worker Relationship Specialty Start Date End Date Demetrius Parish MD [address] [place] [address] PCP - General 06/13/23 documented as of this encounter
--- OUTSIDE RECORDS SUMMARY | 2024-11-24 15:55 | XMS_ITS | Encounter Summary ---
Author Organization [facility] Address [address] [place] [address] Care Team Providers Care Early Interventionist Name Role Phone Natalia Aguillon APRN.SENIOR WINDOWS ADMINISTRATOR Primary Care Provider Huan Barragan Unavailable Huan Barragan Unavailable Source Comments In the event this information is protected by the Federal Confidentiality of Alcohol and Drug AbusePatient Records regulations: The Federal rules restrict any use of the information to criminally investigate or prosecute any alcohol or drug abuse patient.[facility] Encounter Details Date Type Department Care Team (Late st Contact Info) Description 12/24/2019 Get Medical Advice Internal Medicine [place]ia [facility] [place] [address] Provider, Ccf RE: Non-Urgent Medical Question Social [...] on filedocumented in this encounter Care Teams Early Interventionist Relationship Specialty Start Date End Date Natalia Aguillon APRN.CNP [address] [place] [address] PCP - General Family Medicine 11/23/19 Huan Barragan [place] [address] Referring Orthopedics 03/31/24 Huan Barragan [address] [facility] [place] [address] Referring Orthopedics 04/03/24 documented as of this encounter
--- OUTSIDE RECORDS SUMMARY | 2024-11-24 15:55 | XMS_ITS | Encounter Summary ---
Author Organization [facility] Address [address] [place] [address] Care Team Providers Care Social Science Research Assistant Name Role Phone Natalia Aguillon APRN.HEAD OF QUALITY Primary Care Provider Huan Barragan Unavailable Huan Barragan Unavailable Source Comments In the event this information is protected by the Federal Confidentiality of Alcohol and Drug AbusePatient Records regulations: The Federal rules restrict any use of the information to criminally investigate or prosecute any alcohol or drug abuse patient.[facility] Encounter Details Date Type Department Care Team (Late st Contact Info) Description 07/19/2020 Patient Msg Internal Medicine [place] [address] [facility] [place] [address] Provider, Ccf schedule appointment Social History Tobacco [...] N ot on file 03/06/2020 Data from: https://www.neighborhoodatlas.medicine.[facility].edu/. Last address used for calculation Not [...] on filedocumented in this encounter Care Teams Social Science Research Assistant Relationship Specialty Start Date End Date Natalia Aguillon APRN.CNP [address] [place] [address] PCP - General Family Medicine 11/23/19 Huan Barragan [facility] [place] [address] Referring Orthopedics 03/31/24 Huan Barragan [address] [place] [address] Referring Orthopedics 04/03/24 documented as of this encounter
--- OUTSIDE RECORDS SUMMARY | 2024-11-24 15:55 | XMS_ITS | Clinical Summary ---
Author Organization [facility] Address [address] [place] [address] Phone Care Team Providers Care Coil Repair Technician Name Role Phone Unavailable Primary Care Provider [...] of 2) 2022 COVID-19 Vaccine (1 - 2023- season) 2023 Influenza Vaccine (#1) 2024 02/07/2015 [...]
--- OUTSIDE RECORDS SUMMARY | 2024-11-24 15:55 | XMS_ITS | Encounter Summary ---
Author Organization [facility] Address [address] [place] [address] Care Team Providers Care Radiation Safety Officer Name Role Phone Natalia Aguillon APRN.TELESALES SPECIALIST Primary Care Provider Huan Barragan Unavailable Huan Barragan Unavailable Source Comments In the event this information is protected by the Federal Confidentiality of Alcohol and Drug AbusePatient Records regulations: The Federal rules restrict any use of the information to criminally investigate or prosecute any alcohol or drug abuse patient.[facility] Encounter Details Date Type Department Care Team (Late st Contact Info) Description 07/26/2021 Patient Msg Pre Anesthesia [address] [facility] [address] [place] [address] Prisca Van PA-C [address] [place] [address] Pre Op Instructions Social History Tobacco Use Types Packs/Day Years Used Date Smoking Tobacco: Never Smokeless Tobacco: Never Alcohol Use Standard Drinks/Week Comments Yes 0 (1 standard drink = 0.6 oz pur e alcohol) Rare Social Connection and Isolation Panel Answer Date Recorded In a typical week, how many times do you talk on the phone with family, friends, or neighbors? More than three times a week 08/06/2020 How often do you get togethe r with friends or relatives? Once a week 08/06/2020 How often do you attend chur ch or orthodoxy services? Never 08/06/2020 Do you belong to any clubs o r organizations such as jew groups, unions, fraternal or athletic groups, or [...] Answer Date Recorded PHQ-2 score 0 08/06/2020 [facility] Occupational Stress Questionnaire Answer [...] slept in a long-term (including now)? No 07/21/2021 Area Deprivation Index Answer Date Omid rded National Score (1-100), lower number is lower ri sk 84 07/21/2021 State Score (1-10), lower number is lower risk N ot on file 07/21/2021 Data from: https://www.neighborhoodatlas.medicine.[facility].edu/. Last address used for calculation [address] 07/21/2021 Education Answer Date Recorded What is [...] Author No 10/29/2014 2:34 PM EDT Karissa Humphrye RN * Are you blind or do [...] on filedocumented in this encounter Care Teams Radiation Safety Officer Relationship Specialty Start Date End Date Natalia Aguillon APRN.TELESALES SPECIALIST [address] [place] [address] PCP - General Family Medicine 11/23/19 Huan Barragan [address] [place] [address] Referring Orthopedics 03/31/24 Huan Barragan [address] [place] [address] Referring Orthopedics 04/03/24 documented as of this encounter
--- OUTSIDE RECORDS SUMMARY | 2024-11-24 15:55 | XMS_ITS | Encounter Summary ---
Author Organization [facility] Address [address] [place] [address] Care Team Providers Care Staffing Manager Name Role Phone Natalia Aguillon APRN.SENIOR NET PROGRAMMER Primary Care Provider Huan Barragan Unavailable Huan Barragan Unavailable Source Comments In the event this information is protected by the Federal Confidentiality of Alcohol and Drug AbusePatient Records regulations: The Federal rules restrict any use of the information to criminally investigate or prosecute any alcohol or drug abuse patient.[facility] Encounter Details Date Type Department Care Team (Late st Contact Info) Description 04/22/2020 Get Medical Advice Internal Medicine Cinth[place] [address] [place] [address] Provider, Ccf RE: Non-Urgent Medical Question Social History Tobacco Use Types Packs/Day Years Used Date Smoking Tobacco: Never Smokeless Tobacco: Never Alcohol Use Standard Drinks/Week Comments Yes 0 (1 standard drink = 0.6 oz pur e alcohol) [facility] Area Deprivation Index Answer Date Omid rded National Score (1-100), lower number is lower ri sk Not on file 03/06/2020 State Score (1-10), lower number is lower risk N ot on file 03/06/2020 Data from: https://www.neighborhoodatlas.medicine.[facility]/. Last address used for calculation Not on [...] on filedocumented in this encounter Care Teams Staffing Manager Relationship Specialty Start Date End Date Natalia Aguillon APRN.CNP [address] [place] [address] PCP - General Family Medicine 11/23/19 Huan Barragan [address] [place], [place] [address] [place] [address] Referring Orthopedics 03/31/24 Huan Barragan [address] [facility] [place] [address] Referring Orthopedics 04/03/24 documented as of this encounter
--- OUTSIDE RECORDS SUMMARY | 2024-11-24 15:55 | XMS_ITS | Patient Health Record ---
Author Organization [facility] [place] Address [address] [place] [address] Care Team Providers Care Financial Foundations Representative Name Role Phone Conor Parish Primary Care Provider [phone] Kelly Garcia Unavailable [phone] Allergies Allergen (clinical drug ingredient) Drug/Non Drug Allergy documented on EMR Reaction Allergy Type Onset Date Status gabapentin Gabapentin brain fog Drug Allergy Activ e spironolactone Spironolactone chest pain Drug Allergy Active Substance with 1-tcsgsjm-9-methylglu taryl-coenzyme A reductase inhibitor mechanism of action (substance) Statins muscleaches Drug Allergy Active Results Component Value Reference Range Notes PROF 14(COMP METB) Reviewed date:04/05/2024 05:30:55 PM Interpretation: Performing Lab: Notes/Report: [facility] , Sodium 142 136-145 mmol/L Potassium 4.4 3.5-5.1 mmol/L Chloride 104 98-107 mmol/L Carbon Dioxide 31.3 21.0-32.0 mmol/L Anion Gap 11.1 Glucose 111 74-106 mg/dL Blood Urea Nitrogen 19.0 7.0-18.0 mg/dL Creatinine 1.09 0.70-1.30 mg/dL Estimated GFR ( Nika >60 >=60 mL/min/1.73m 2 Estimated GFR (Non- Amgy >60 >=60 mL/min/1.73m 2 BUN Creatinine Ratio 17.4 Calcium 9.1 8.5-10.1 mg/dL Bilirubin Total 0.5 0.2-1.0 mg/dL Aspartate Amino Transferase 15 15-37 U/L Alanine Aminotransferase 23 16-63 U/L Alkaline Phosphatase 72 46-116 U/L Total Protein 7.2 6.4-8.2 g/dL Albumin Level 4.1 3.4-5.0 g/dL Globulin 3.1 Albumin Globulin Ratio 1.3 Performing Lab: see note ML - [facility] PTT Reviewed date:04/05/2024 05:30:55 PM Interpretation: Performing Lab: Notes/Report: [facility] , Partial Thromboplastin Time 43.2 22.3-36.2 sec RESULTS CALLED TO DR Marina PARISH @BY Anita Dewitt at 1044 Performing Lab: see note ML - [facility] Troponin I High Sensitivity Reviewed date:01/27/2024 08:51:17 PM Interpretation: Performing Lab: Notes/Report: [facility] , Troponin I High Sensitivity 4.9 4.0-76.1 pg/mL CUT-OFF POINTS HAVE BEEN ESTABLISHED BASED ON THE FOURTH UNIVERSAL DEFINITION OF MYOCARDIAL INFARCTION. THE UPPER REFERENCE LIMIT (URL) OF TROPONIN, DEFINED THE 99TH PERCENTILE OF cTnI DISTRIBUTION IN A REFERENCE POPULATION, HAS BEEN CONFIRMED THE DECISION THRESHOLD FOR CT DIAGNOSIS. 99TH PERCENTILE = 76.2 PG/ML NOTE: HIGH-SENSITIVITY TROPONIN ASSAY IS NOT INTENDED TO BE USED IN ISOLATION BUT SHOULD BE INTERPRETED IN CONJUNCTION WITH OTHER DIAGNOSTIC AND CLINICAL INFORMATION. Performing Lab: see note ML - [facility] ECG 12 lead Reviewed date:01/29/2024 06:25:21 PM Interpretation: Performing Lab: Notes/Report: Source Facility: [facility] [place] [address] [place] [address] Electrocardiograph Report Signed Patient: NEHAL BAIG MR#: [id number] : 1970 Acct:[id number] Age/Sex: 53 / M ADM Date: 01/27/24 Loc: ER Attending Dr: Ordering Physician: Jose Orourke Date of Service: 01/27/24 Procedure(s): ECG 12 lead Accession Number(s): [id number] cc: [facility] Test Date: 2024-01-27 Pat Name: NEHAL BAIG Department: Room: - Gender: Male [employer] Consultant: : 1970 Requested By: CHANDRAKANT Castañeda Number: [id number] Reading MD: JARED MCGRATH Measurements Intervals Weldon Rate: 86 P: 61 NV: 152 QRS: 41 QRSD: 98 T: 270 QT: 332 QTc: 375 Interpretive Statements 1100 Sinus rhythm [address] ST/T wave changes, inferolateral ischemia can't be excluded 6220 Possible left atrial enlargement 9150 abnormal ECG Electronically Signed On 01-28-2024 23:01:48 EDT by JARED MCGRATH Dictated By: Jared Mcgrath D.O. Signed By: 01/28/242300 DD/ 43 TD/TT: Stonework Supervisor: [place] [address] Electrocardiograph Report Signed Patient: NEHAL BAGI MR#: [id number] : 1970 Acct:[id number] Age/Sex: 53 / M ADM Date: 01/27/24 Loc: ER Attending Dr: Ordering Physician: Jose Orourke Date of Service: 01/27/24 Procedure(s): ECG 12 lead Accession Number(s): [id number] cc: [facility] Test Date: 2024-01-27 Pat Name: NEHAL Estrada Department: 82 Room: - Gender: Male [employer] Consultant: : 1970 Requ ested By: CHANDRAKANT PARISH Order Number: [id number] Reading MD: JARED MCGRATH Measurements Intervals Weldon Rate: 86 P: 61 NV: 152 QRS: 41 QRSD: 98 T: 270 QT: 332 QTc: 375 Interpretive Statements 1100 Sinus rhythm [address] depression ST/T wave changes, inferolateral ischemia can't be excluded 6220 Possible left a trial enlargement 9150 abnormal ECG Electronically Delaney d On 01-28-2024 23:01:48 EDT by JARED MCGRATH Dictated By: Jared Mcgrath D.O. Signed By: 01/28/242300 DD/ 43 TD/TT: Stonework Supervisor: JAYLYN chest 2V Reviewed date:01/27/2024 08:51:17 PM Interpretation: Performing Lab: Notes/Report: Source Facility: [place] [address] [place] [address] XRay Report Signed Patient: NEHAL BAIG MR#: [id number] : 1970 Acct:[id number] Age/Sex: 53 / M ADM Date: 01/27/24 Loc: ER Attending Dr: Ordering Physician: Jose Orourke Date of Service: 01/27/24 Procedure(s): XR chest 2V Accession Number(s): [id number] cc: Chandrakant Parish M.D.; Jose Orourke [place] [address] Patient Name: NEHAL BAIG MRN: [id number] date: 1970 Sex: M Assigned Patient Location: ER Current Patient Location: ER Accession/Order Number: [id number] Exam Date: 01/27/2024 17:12 Report Date: 01/27/2024 [...] Dictated By: Tomer Hall M.D. Signed By: 01/27/24 175 DD/ 1748 TD/TT: Stonework Supervisor: [place] [address] XRay Report Signed Patient: NEHAL BAIG MR#: [id number] : 1970 Acct:[id number] Age/Sex: 53 / M ADM Date: 01/27/24 Loc: ER Attending Dr: Ordering Physician: Jose Orourke Date of Service: 01/27/24 Procedure(s): XR chest 2V Accession Number(s): [id number] cc: Chandrakant Parish M.D. ; Jose Orourke [facility] [place] [id number] Patient Name: NEHAL BAIG MRN: TBH:[id number] date: 1970 Sex: M Assigned Patient Location: ER Current Patient Loca tion: ER Accession/Order Numb er: [id number] Exam Date: 17:12 Report Date: 01/27/2024 17:48 [...] Francisco Hall M.D. Signed By: 01/27/241749 DD/ 47 TD/TT: Stonework Supervisor: LIPID PROFILE Reviewed date:02/02/2024 10:54:35 AM Interpretation: Performing Lab: Notes/Report: [facility] , Triglycerides 158 <=150 mg/dL Cholesterol 252 [...] >11.0 HIGH RISK Performing Lab: see note ML - [facility] LB PROF 14(COMP METB) Reviewed date:02/02/2024 10:54:35 AM Interpretation: Performing Lab: Notes/Report: [facility] , Sodium 140 136-145 mmol/L Potassium 4.3 [...] Performing Lab: see note ML - [facility] LB PSA SCREENING Reviewed date:02/02/2024 10:54:35 AM Interpretation: Performing Lab: Notes/Report: [facility] , Prostate Specific Antigen Scrn 0.53 <=4.00 ng/mL Performing Lab: see note ML - [facility] LB T4 Reviewed date:02/02/2024 10:54:35 AM Interpretation: Performing Lab: Notes/Report: [facility] , T4 Thyroxine 8.10 4.50-12.10 ug/dL Performing Lab: see note ML - [facility] LB TSH Reviewed date:02/02/2024 10:54:35 AM Interpretation: Performing Lab: Notes/Report: [facility] , Thyroid Stimulating Hormone 1.472 0.358-3.740 uIU/mL Performing Lab: see note ML - [facility] LB UA RANDOM W or MICROSCOPIC Reviewed date:02/02/2024 10:54:35 AM Interpretation: Performing Lab: Notes/Report: [facility] , Color Urine LT. YELLOW YELLOW Clarity Urine CLEAR CLEAR Specific Jefferson Urine 1.015 1.005-1.025 pH Urine 6.0 5.0-9.0 [...] ORDERED Performing Lab: see note ML - [facility] LB URIC ACID SERUM Reviewed date:02/02/2024 10:54:35 AM Interpretation: Performing Lab: Notes/Report: [facility] , Uric Acid 3.5 3.5-7.2 mg/dL Performing Lab: see note ML - [facility] VITAMIN D 25 [place] Reviewed date:02/02/2024 10:54:35 AM Interpretation: Performing Lab: Notes/Report: [facility] , Vitamin D 42.9 <20 ng/mL Vit D deficient 20-<30 ng/mL Vit D insufficient 30-100 ng/mL Vit D sufficient >100 ng/mL Potential Toxicity Performing Lab: see note - [facility] LB US right upper quadrant Reviewed date:02/10/2024 01:23:46 PM Interpretation: Performing Lab: Notes/Report: Source Facility: [place] [address] Ultrasound Report Signed Patient: NEHAL BAIG MR#: [id number] : 1970 Acct:[id number] Age/Sex: 53 / M ADM Date: 02/08/24 Loc: US Attending Dr: KELLY GARCIA Ordering Physician: KELLY GARCIA Date of Service: 02/08/24 Procedure(s): US right upper quadrant Accession Number(s): [id number] cc: KELLY GARCIA ; Chandrakant Parish M.D. [address] [address] Patient Name: NEHAL BAIG MRN: [facility]:[id number] date: 1970 Sex: M Assigned Patient Location: US Current Patient Location: Accession/Order Number: [id number] Exam Date: 02/08/2024 08:06 Report Date: 02/10/2024 [...] M.D. Signed By: 02/10/24828 DD/ 6 TD/TT: Stonework Supervisor: [place] [address] Ultrasound Report Signed Patient: NEHAL BAIG MR#: [id number] : 1970 Acct:[id number] Age/Sex: 53 / M ADM Date: 02/08/24 Loc: US Attending Dr: KELLY GARCIA Ordering Physician: KELLY GARCIA Date of Service: 02/08/24 Procedure(s): US rig ht upper quadrant Accession Number(s): [id number] cc: KELLY GARCIA ; Chandrakant Parish M.D. [facility] [place] [id number] Patient Name: NEHAL BAIG MRN: [id number]:[id number] date: 1970 Sex: M Assigned Patient Location: US Current Patient Location: Accession/Order Numb er: [id number] Exam Date: 08:06 Report Date: 02/10/2024 08:27 [...] M.D. Signed By: 02/10/24828 DD/ 6 TD/TT: Stonework Supervisor: Prothrombin Time INR Reviewed date:06/25/2024 07:49:41 PM Interpretation: Performing Lab: Notes/Report: [facility] , Prothrombin Time 15.9 9.0-11.6 sec INR 1.57 DESIRED INR: 2.0-3.0 CONDITIONS NOT LISTED BELOW 2.5-3.5 FOR PROSTHETIC HEART VALVE REPLACEMENT 2.5-3.5 RECURRENT THROMBOSIS Performing Lab: see note ML - [facility] LB FREE T3 Reviewed date:11/06/2024 04:02:20 PM Interpretation: Performing Lab: Notes/Report: [facility] , Free T3 3.73 2.18-3.98 pg/mL Performing Lab: see note ML - [facility] LB T4 Reviewed date:11/06/2024 04:02:20 PM Interpretation: Performing Lab: Notes/Report: [facility] , T4 Thyroxine 7.80 4.50-12.10 ug/dL Performing Lab: see note ML - [facility] LB TSH Reviewed date:11/06/2024 04:02:20 PM Interpretation: Performing Lab: Notes/Report: [facility] , Thyroid Stimulating Hormone 1.839 0.358-3.740 uIU/mL Performing Lab: see note ML - [facility] LB Troponin I High Sensitivity Reviewed date:11/06/2024 04:02:20 PM Interpretation: Performing Lab: Notes/Report: [facility] , Troponin I High Sensitivity 5.0 4.0-76.1 pg/mL CUT-OFF POINTS HAVE BEEN ESTABLISHED BASED ON THE FOURTH UNIVERSAL DEFINITION OF MYOCARDIAL INFARCTION. THE UPPER REFERENCE LIMIT (URL) OF TROPONIN, DEFINED THE 99TH PERCENTILE OF cTnI DISTRIBUTION IN A REFERENCE POPULATION, HAS BEEN CONFIRMED THE DECISION THRESHOLD FOR CT DIAGNOSIS. 99TH PERCENTILE = 76.2 PG/ML NOTE: HIGH-SENSITIVITY TROPONIN ASSAY IS NOT INTENDED TO BE USED IN ISOLATION BUT SHOULD BE INTERPRETED IN CONJUNCTION WITH OTHER DIAGNOSTIC AND CLINICAL INFORMATION. Performing Lab: see note ML - [facility] LB ECG 12 lead Reviewed date:06/28/2024 03:57:49 PM Interpretation: Performing Lab: Notes/Report: Source Facility: [place] [address] [place] [address] Electrocardiograph Report Signed Patient: NEHAL BAIG MR#: [id number] : 1970 Acct:[id number] Age/Sex: 53 / M ADM Date: 06/25/24 Loc: ER Attending Dr: Ordering Physician: Devin Sy M.D. Date of Service: 06/25/24 Procedure(s): ECG 12 lead Accession Number(s): [id number] cc: [facility] Test Date: 2024-06-25 Pat Name: NEHAL BAIG Department: Room: - Gender: Male [employer] Consultant: : 1970 Requested By: 1030 Order Number: [id number] Reading MD: SHANELLE ROLLE M.D. Measurements Intervals Weldon Rate: 67 P: 51 NV: 162 QRS: 36 QRSD: 94 T: 245 [...] ROLLE Signed By: 06/26/241914 DD/ 4 TD/TT: Stonework Supervisor: [place] [address] Electrocardiograph Report Signed Patient: NEHAL BAIG MR#: [id number] : 1970 Acct:[id number] Age/Sex: 53 / M ADM Date: 06/25/24 Loc: ER Attending Dr: Ordering Physician: Devin Sy M.D. Date of Service: 06/25/24 Procedure(s): ECG 12 lead Accession Number(s): [id number] cc: [facility] Test Date: 2024-06-25 Pat Name: NEHAL Estrada Department: 82 Room: - Gender: Male [employer] Consultant: : 1970 Requ ested By: 1030 Order Number: [id number] Reading MD: SHANELLE ROLLE M.D. Measurements Intervals Weldon Rate: 67 P: 51 NV: 162 QRS: 36 QRSD: 94 T: 245 [...] ROLLE Signed By: 06/26/241914 DD/ 4 TD/TT: Stonework Supervisor: Troponin I High Sensitivity Reviewed date:06/25/2024 07:49:41 PM Interpretation: Performing Lab: Notes/Report: [facility] , Troponin I High Sensitivity 5.5 4.0-76.1 pg/mL CUT-OFF POINTS HAVE BEEN ESTABLISHED BASED ON THE FOURTH UNIVERSAL DEFINITION OF MYOCARDIAL INFARCTION. THE UPPER REFERENCE LIMIT (URL) OF TROPONIN, DEFINED THE 99TH PERCENTILE OF cTnI DISTRIBUTION IN A REFERENCE POPULATION, HAS BEEN CONFIRMED THE DECISION THRESHOLD FOR CT DIAGNOSIS. 99TH PERCENTILE = 76.2 PG/ML NOTE: HIGH-SENSITIVITY TROPONIN ASSAY IS NOT INTENDED TO BE USED IN ISOLATION BUT SHOULD BE INTERPRETED IN CONJUNCTION WITH OTHER DIAGNOSTIC AND CLINICAL INFORMATION. Performing Lab: see note ML - [facility] LB PROF 14(COMP METB) Reviewed date:06/25/2024 07:49:41 PM Interpretation: Performing Lab: Notes/Report: [facility] , Sodium 140 136-145 mmol/L Potassium 4.0 3.5-5.1 mmol/L Chloride 100 98-107 mmol/L Carbon Dioxide 32.2 21.0-32.0 mmol/L Anion Gap 11.8 Glucose 82 74-106 mg/dL Blood Urea Nitrogen 20.0 7.0-18.0 mg/dL Creatinine 1.11 0.70-1.30 mg/dL Estimated GFR ( Nkia >60 >=60 mL/min/1.73m 2 Estimated GFR (Non- Magy >60 >=60 mL/min/1.73m 2 BUN Creatinine Ratio 18.0 Calcium 8.9 8.5-10.1 mg/dL Bilirubin Total 0.5 0.2-1.0 mg/dL Aspartate Amino Transferase 12 15-37 U/L Alanine Aminotransferase 22 16-63 U/L Alkaline Phosphatase 84 46-116 U/L Total Protein 7.9 6.4-8.2 g/dL Albumin Level 4.5 3.4-5.0 g/dL Globulin 3.4 Albumin Globulin Ratio 1.3 Performing Lab: see note - [facility] LB BNP Reviewed date:06/25/2024 07:49:41 PM Interpretation: Performing Lab: Notes/Report: [facility] , NT Pro B Type Natriuretic Pept 30.0 <=900.0 pg/mL Performing Lab: see note - [facility] Prothrombin Time INR Reviewed date:06/22/2024 08:50:30 PM Interpretation: Performing Lab: Notes/Report: [facility] , Prothrombin Time 15.9 9.0-11.6 sec INR 1.57 DESIRED INR: 2.0-3.0 CONDITIONS NOT LISTED BELOW 2.5-3.5 FOR PROSTHETIC HEART VALVE REPLACEMENT 2.5-3.5 RECURRENT THROMBOSIS Performing Lab: see note - [facility] LB US right upper quadrant Reviewed date:04/15/2024 07:05:14 PM Interpretation: Performing Lab: Notes/Report: Source Facility: [place] [address] Ultrasound Report Signed Patient: NEHAL BAIG MR#: [id number] : 1970 Acct:[id number] Age/Sex: 53 / M ADM Date: 04/14/24 Loc: US Attending Dr: Chandrakant Parish M.D. Ordering Physician: Chandrakant Parish M.D. Date of Service: 04/14/24 Procedure(s): US right upper quadrant Accession Number(s): [id number] cc: Chandrakant Parish M.D. [place] [address] Patient Name: NEHAL ABIG MRN: [id number]:[id number] date: 1970 Sex: M Assigned Patient Location: US Current Patient Location: Accession/Order Number: [id number] Exam Date: 04/14/2024 18:08 Report Date: 04/15/2024 [...] M.D. Signed By: 04/15/24447 DD/ 4 TD/TT: Stonework Supervisor: [place] [address] Ultrasound Report Signed Patient: NEHAL BAIG MR#: [id number] : 1970 Acct:[id number] Age/Sex: 53 / M ADM Date: 04/14/24 Loc: US Attending Dr: Josseline Parish M.D. Ordering Physician: Chandrakant Parish M.D. Date of Service: 04/14/24 Procedure(s): US rig ht upper quadrant Accession Number(s): [id number] cc: Chandrakant Parish M.D. [address] [address] Patient Name: NEHAL BAIG MRN: TBH:[id number] date: 1970 Sex: M Assigned Patient Location: US Current Patient Location: Accession/Order Numb er: [id number] Exam Date: 04/14/2024 18:08 Report Date: 04/15/2024 04:45 At the request of: CHANDRAKANT PARISH Procedure: US right upper quadrant EXAMINATION: US righ t upper quadrant HISTORY: HEPATOMEGAL Y R16.0 [...] Dictated By: Kahlil Donaldson M.D. Signed By: 04/15/24 0448 DD/ 0445 TD/TT: Stonework Supervisor: Prothrombin Time INR Reviewed date:04/05/2024 05:30:55 PM Interpretation: Performing Lab: Notes/Report: [facility] , Prothrombin Time 27.5 9.0-11.6 sec INR 2.88 DESIRED INR: 2.0-3.0 CONDITIONS NOT LISTED BELOW 2.5-3.5 FOR PROSTHETIC HEART VALVE REPLACEMENT 2.5-3.5 RECURRENT THROMBOSIS Performing Lab: see note - [facility] TSH Reviewed date:04/05/2024 05:30:55 PM Interpretation: Performing Lab: Notes/Report: [facility] , Thyroid Stimulating Hormone 1.634 0.358-3.740 uIU/mL Performing Lab: see note - [facility] FREE T4 Reviewed date:04/05/2024 05:30:55 PM Interpretation: Performing Lab: Notes/Report: [facility] , Free T4 0.99 0.76-1.46 ng/dL Performing Lab: see note - [facility] CA echo doppler complete Reviewed date:02/22/2024 09:24:55 AM Interpretation: Performing Lab: Notes/Report: Source Facility: [place] [address] [place] [address] Cardiology Report Signed Patient: NEHAL BAIG MR#: [id number] : 1970 Acct:[id number] Age/Sex: 53 / M ADM Date: 02/20/24 Loc: CARD Attending Dr: KELLY GARCIA Ordering Physician: KELLY GARCIA Date of Service: 02/20/24 Procedure(s): CA echo doppler complete Accession Number(s): [id number] cc: KELLY GARCIA ; Chandrakant Parish M.D. Patient Name: NEHAL BAIG MR#: [id number] : 1970 Exam Date: 02/20/2024 Ordering Doctor: KELLY GARCIA [facility] ECHOCARDIOGRAM REPORT PROCEDURE: CA ECHO DOPPLER COMPLETE [...] ROLLE Signed By: 02/20/242026 DD/ 25 TD/TT: Stonework Supervisor: [place] [address] Cardiology Report Signed Patient: NEHAL BAIG MR#: [id number] : 1970 Acct:[id number] Age/Sex: 53 / M ADM Date: 02/20/24 Loc: CARD Attending Dr: KELLY GARCIA Ordering Physician: KELLY GARCIA Date of Service: 02/20/24 Procedure(s): CA ech o doppler complete Accession Number(s): [id number] cc: KELLY GARCIA ; Chandrakant Parish M.D. Patient Name: NEHAL BAIG MR#: [id number] : 1970 Exam Date: 02/20/2024 Ordering Doctor: ZENY GARCIA [facility] ECHOCARDIOGRAM REPORT PROCEDURE: CA ECHO DOPPLER COMPLETE INDICATIONS: Fatigue COMPARISON: None. DESCRIPTION: COMPLET E ECHOCARDIOGRAM Real-time transthoracic echocardiography wit h 2D, M-mode, spectral and color flow Doppler performed. QUALITY: Technical quality was limited. LEFT VENTRICLE: Norm al chamber size. Borderline left ventricular hypertrophy. Systoli c function is difficult to assess due to [...] ROLLE Signed By: 02/20/242026 DD/ 25 TD/TT: Stonework Supervisor: Occult Blood* Reviewed date:02/06/2024 07:32:37 PM Interpretation: Performing Lab: Notes/Report: [facility] , Occult Blood Positive Performing Lab: see note - [facility] LB Urine Culture, Routine Reviewed date:02/03/2024 07:30:37 PM Interpretation: Performing Lab: Notes/Report: [facility] , Urine Culture, Routine See Below For Report Urine Culture, Routine Urine Culture, Routine Mixed urogenital fito Urine Culture, Routine Urine Culture, Routine Less than 10,000 colonies/mL Urine Culture, Routine Urine Culture, Routine Performed at: [facility] Urine Culture, Routine Urine Culture, Routine [address] [place] [phone] Urine Culture, Routine Urine Culture, Routine Doctor Of Naturopathic Medicine: Deric Moyer PhD, Phone: [phone] Urine Culture, Routine Performing Lab: see note - [facility] LB SEE REPORT - Benefit Specialist Id information not found for OBX-specific content producer legend Vitamin B12 Reviewed date:02/02/2024 02:52:08 PM Interpretation: Performing Lab: Notes/Report: [facility] , Vitamin B12 [phone] pg/mL Performed at: CB - [facility] [address] [id number] Doctor Of Naturopathic Medicine: Krzysztof Moyer PhD, Phone: [phone] Performing Lab: see note - [facility] LB IRON Reviewed date:02/02/2024 10:54:35 AM Interpretation: Performing Lab: Notes/Report: [facility] , Iron 86.0 65.0-175.0 ug/dL Performing Lab: see note ML - [facility] LB INSULIN Reviewed date:02/03/2024 07:30:37 PM Interpretation: Performing Lab: Notes/Report: [facility] , Insulin 22.7 2.6-24.9 uIU/mL Performed at: [facility] [address] [id number] Doctor Of Naturopathic Medicine: Krzysztof Moyer PhD, Phone: [phone] Performing Lab: see note - [facility] LB GLYCOHEMOGLOBIN A1C Reviewed date:02/02/2024 10:54:35 AM Interpretation: Performing Lab: Notes/Report: [facility] , Glycohemoglobin A1C 5.2 4.5-6.2 % ADA RECOMMENDED LIMIT 4.0 - 6.0 ADA THERAPEUTIC TARGET < 7.0 ACTION SUGGESTED > 7.0 Estimated Average Glucose 103 Performing Lab: see note ML - [facility] FREE T3 Reviewed date:02/02/2024 10:54:35 AM Interpretation: Performing Lab: Notes/Report: [facility] , Free T3 2.71 2.18-3.98 pg/mL Performing Lab: see note ML - [facility] LB CBC AUTO DIFF Reviewed date:02/02/2024 10:54:35 AM Interpretation: Performing Lab: Notes/Report: [facility] , White Blood Count 8.5 4.0-11.0 10 [...] 0.00-0.03 10 3/uL Performing Lab: see note - [facility] LB UA RANDOM W or MICROSCOPIC Reviewed date:01/27/2024 08:51:17 PM Interpretation: Performing Lab: Notes/Report: [facility] , Color Urine LT. YELLOW YELLOW Clarity Urine CLEAR CLEAR Specific Jefferson Urine 1.025 1.005-1.025 pH Urine 6.0 5.0-9.0 [...] NONE SEEN #/LPF Performing Lab: see note - [facility] LB PROF 14(COMP METB) Reviewed date:01/27/2024 08:51:17 PM Interpretation: Performing Lab: Notes/Report: [facility] , Sodium 141 136-145 mmol/L Potassium 4.5 [...] 1.3 Performing Lab: see note ML - [facility] LB LIPASE Reviewed date:01/27/2024 08:51:17 PM Interpretation: Performing Lab: Notes/Report: [facility] , Lipase 57.0 16.0-77.0 U/L Performing Lab: see note ML - [facility] LB CBC AUTO DIFF Reviewed date:01/27/2024 08:51:17 PM Interpretation: Performing Lab: Notes/Report: [facility] , White Blood Count 10.6 4.0-11.0 10 [...] Performing Lab: see note ML - [facility] LB ITP Reviewed date:01/02/2024 08:34:56 PM Interpretation: Performing Lab: Notes/Report: Source Facility: [facility] [place] [address] [place] [address] Cardiac Rehab Report Signed Patient: NEHAL BAIG MR#: [id number] : 1970 Acct:[id number] Age/Sex: 53 / M ADM Date: 09/30/23 Loc: CR Attending Dr: SHANELLE ROLLE Ordering Physician: SHANELLE ROLLE Date of Service: 01/01/24 Procedure(s): ITP Accession Number(s): [id number] cc: [facility] Test Date: 2024-01-01 Pat Name: NEHAL BAIG Department: Room: - Gender: Male [employer] Consultant: : 1970 Requested By: SHANELLE ROLLE M.D. Order Number: [id number] Reading MD: JARED MCGRATH Interpretive Statements Session Date: Electronically Signed On 01-02-2024 20:09:12 EDT by JARED MCGRATH Dictated By: Jared Mcgrath D.O. Signed By: 01/02/24200801/02/242008 DD/ 1102 TD/TT: Stonework Supervisor: [place] [address] Cardiac Rehab Report Signed Patient: NEHAL BAIG MR#: [id number] : 1970 Acct:[id number] Age/Sex: 53 / M ADM Date: 09/30/23 Loc: CR Attending Dr: SHANELLE ROLLE Ordering Physician: SHANELLE ROLLE Date of Service: 01/01/24 Procedure(s): ITP Accession Number(s): [id number] cc: [facility] Test Date: 2024-01-01 Pat Name: NEHAL GAN Department: 82 Room: - Gender: Male [employer] Consultant: : 1970 Requ ested By: SHANELLE ROLLE M.D. Order Number: [id number] Reading MD: JARED MCGRATH Interpretive Statements Session Date: Electronically Delaney d On 01-02-2024 20:09:12 EDT by JARED MCGRATH Dictated By: Jared Mcgrath D.O. Signed By: 01/02/24200801/02/242008 DD/ 01 TD/TT: Stonework Supervisor: Prothrombin Time INR Reviewed date:11/25/2023 06:23:27 PM Interpretation: Performing Lab: Notes/Report: [facility] , Prothrombin Time 18.7 9.0-11.6 sec INR 1.88 DESIRED INR: 2.0-3.0 CONDITIONS NOT LISTED BELOW 2.5-3.5 FOR PROSTHETIC HEART VALVE REPLACEMENT 2.5-3.5 RECURRENT THROMBOSIS Performing Lab: see note ML - [facility] LB PROF 14(COMP METB) Reviewed date:11/06/2024 04:02:20 PM Interpretation: Performing Lab: Notes/Report: [facility] , Sodium 143 136-145 mmol/L Potassium 4.4 3.5-5.1 mmol/L Chloride 108 98-107 mmol/L Carbon Dioxide 32.0 21.0-32.0 mmol/L Anion Gap 7.4 Glucose 103 74-106 mg/dL Blood Urea Nitrogen 18.0 7.0-18.0 mg/dL Creatinine 1.06 0.70-1.30 mg/dL Estimated GFR ( Nika >60 >=60 mL/min/1.73m 2 Estimated GFR (Non- Magy >60 >=60 mL/min/1.73m 2 BUN Creatinine Ratio 17.0 Calcium 9.0 8.5-10.1 mg/dL Bilirubin Total 0.6 0.2-1.0 mg/dL Aspartate Amino Transferase 22 15-37 U/L Alanine Aminotransferase 37 16-63 U/L Alkaline Phosphatase 79 46-116 U/L Total Protein 7.4 6.4-8.2 g/dL Albumin Level 4.2 3.4-5.0 g/dL Globulin 3.2 Albumin Globulin Ratio 1.3 Performing Lab: see note ML - [facility] LB BNP Reviewed date:11/06/2024 04:02:20 PM Interpretation: Performing Lab: Notes/Report: [facility] , NT Pro B Type Natriuretic Pept 83.0 <=900.0 pg/mL Performing Lab: see note ML - [facility] LB CBC AUTO DIFF Reviewed date:04/05/2024 05:30:55 PM Interpretation: Performing Lab: Notes/Report: [facility] , White Blood Count 6.8 4.0-11.0 10 [...] 0.00-0.03 10 3/uL Performing Lab: see note - [facility] LB BNP Reviewed date:04/05/2024 05:30:55 PM Interpretation: Performing Lab: Notes/Report: [facility] , NT Pro B Type Natriuretic Pept 85.0 <=900.0 pg/mL Performing Lab: see note ML - [facility] LB AMMONIA Reviewed date:04/05/2024 05:30:55 PM Interpretation: Performing Lab: Notes/Report: [facility] , Ammonia 16 11-32 umol/L Performing Lab: see note - [facility] XR chest 2V Reviewed date:11/06/2024 04:02:20 PM Interpretation: Performing Lab: Notes/Report: Source Facility: [place] [address] XRay Report Signed Patient: NEAHL BAIG MR#: [id number] : 1970 Acct:[id number] Age/Sex: 54 / M ADM Date: 11/06/24 Loc: LAB Attending Dr: Chandrakant Parish M.D. Ordering Physician: Chandrakant Parish M.D. Date of Service: 11/06/24 Procedure(s): XR chest 2V Accession Number(s): [id number] cc: Chandrakant Parish M.D. [place] [address] Patient Name: NEHAL BAIG MRN: [id number] date: 1970 Sex: M Assigned Patient Location: LAB Current Patient Location: LAB Accession/Order Number: [id number] Exam Date: 11/06/2024 14:46 Report Date: 11/06/2024 14:51 At the request of: CHANDRAKANT PARISH MD Procedure: XR chest 2V Chest 2 views CLINICAL HISTORY: LYMPHEDEMA I89.0 COMPARISON: Chest 06/25/2024 FINDINGS: Sternotomy wires and hardware are noted. Heart is normal in size. Lungs are clear. No free air. XR/XR chest 2V IMPRESSION: NO ACUTE CARDIOPULMONARY ABNORMALITY. Impression dictated by: Camilo Rivera Jr., D.O. 11/06/2024 2:51 PM Dictation Location: [place] [address] Electronically authenticated by: [id number] Y Date: 11/06/2024 14:51 Dictated By: Camilo Rivera M.D. Signed By: 11/06/243 DD/ 50 TD/TT: Stonework Supervisor: [place] [address] XRay Report Signed Patient: NEHAL BAIG MR#: [id number] : 1970 Acct:[id number] Age/Sex: 54 / M ADM Date: 11/06/24 Loc: LAB Attending Dr: Josseline Parish M.D. Ordering Physician: Chandrakant Parish M.D. Date of Service: 11/06/24 Procedure(s): XR chest 2V Accession Number(s): [id number] cc: Chandrakant Parish M.D. [place] [id number] Patient Name: NEHAL BAIG MRN: [id number] date: 1970 Sex: M Assigned Patient Location: LAB Current Patient Loca tion: LAB Accession/Order Numb er: [id number] Exam Date: 11/06/2024 14:46 Report Date: 11/06/2024 14:51 At the request of: CHANDRAKANT PARISH MD Procedure: XR chest 2V Chest 2 views CLINICAL HISTORY: LYMPHEDEMA I89.0 COMPARISON: Chest 06/25/2024 FINDINGS: Sternotomy wires and hardware are noted. Heart is normal in size. Lungs are clear. No free air. X R/XR chest 2V IMPRESSION: NO ACUTE CARDIOPULMO NARY ABNORMALITY. Impression dictated by: Camilo Rivera Jr., D.O. 11/06/2024 2:51 PM Dictation Location: [place] [address] Electronically authenticated by: [id number] Y Date: 11/06/2024 14:51 Dictated By: Camilo Rivera M.D. Signed By: 11/06/24 1453 DD/ 1451 TD/TT: Stonework Supervisor: CBC AUTO DIFF Reviewed date:06/25/2024 07:49:41 PM Interpretation: Performing Lab: Notes/Report: [facility] , White Blood Count 9.4 4.0-11.0 10 [...] Performing Lab: see note ML - [facility] LB Reason For Referral Diagnosis 1 Occult blood positiv e stool (R19.5) Referral Organization [facility] Referring Provider First Name Conor Referring Provider Last Name Марина Referring Provider Speciality Family Med erica Referred Provider Clay Galarza Referred Provider Specialty General Surg blessing Referral Priority Routine Diagnosis 1 Anemia, iron deficie ncy (D50.9) Referral Organization [facility] Medicine Referring Provider First Name Conor Referring Provider Last Name Марина Referring Provider Speciality [facility] erica Referred Provider Kevin William Referred Provider Specialty Gastroentero logy Referral Priority Routine Medications Medication SIG (Take, Route, Frequency, Duration) Notes Start Date End Date Status Mupirocin 2 % 1 application Apprentice Lineman Third Step ally Twice a day for 5 days 11/06/2024 Active Warfarin Sodium 5 MG 1 tablet Orally Once a day Active Doxycycline Monohydrate 100 MG 1 tablet [...] days Active Vitamin D (Cholecalciferol) 50 MCG (1999 UT) 1 capsule Orally Once a day Active Farxiga 10 MG TAKE 1 TABLET BY TORI TH EVERY DAY FOR 30 DAYS for 90 Active HYDROcodone-Acetaminophen 7.5-325 MG 1 tablet as [...] Problem Status W/U Status Risk Notes Problem 095750898791941 Meralgia paresthetica, left lower limb (G57.12) Active confirmed Problem 41121398 Nonrheumatic aortic (valve) insufficiency (I35.1) Active confirmed Problem 64321510521477866 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) Active confirmed Problem 062630590062689 Achilles tendinitis, right leg (M76.61) Active confirmed Problem 638593599909621 Calcaneal spur, right foot (M77.31) Active confirmed Problem 794672129548778 Calcaneal spur, left foot (M77.32) Active confirmed Problem 203316357 Anesthesia of skin (R20.0) Active confirmed Problem 45129736 Paresthesia of skin (R20.2) Active confirmed Problem Bacteremia (8877106) Bacteremia (R78.81) Active confirmed Problem 91276775242772343 Strain of left Achilles tendon, sequela (S86.012S) Active confirmed Problem Lymphedema (56628806) Lymphedema (I89.0) Active confirmed Problem Sleep apnea (29116141) Sleep apnea (G47.30) Active confirmed Problem Pericardial effusion (495460650) Pericardial effusion (I31.9) Active confirmed Problem Ankle pain (870095598) Ankle pain (M25.579) Active confirmed Problem Internal hemorrhoid (73994310) Internal hemorrhoid (K64.8) Active confirmed Problem Lumbar radiculopathy (150651663) Lumbar radiculopathy (M54.16) Active confirmed Problem Foot pain (51859094) Foot pain (M79.673) Active confirmed Problem Cervical disc disease (170377710) Cervical disc disease (M50.90) Active confirmed Problem Ejection fraction < 50% (R09.89) Active confirmed Problem 617446641 Pain of left lower extremity (M79.605) Active confirmed Problem Hepatomegaly (58187984) Hepatomegaly (R16.0) Active confirmed Problem Iron deficiency anemia (29067975) Anemia, iron deficiency (D50.9) Active confirmed Problem Displacement of lumbar intervertebral disc without myelopathy (69043448) Herniated nucleus pulposis of lumbosacral region (M51.27) Active confirmed Problem Meralgia paresthetica (21575266) Meralgia paresthetica (G57.10) Active confirmed Problem Malnutrition of moderate degree (Lynn: 60% to less than 75% of standard weight) (97644954) Moderate malnutrition (E44.0) Active confirmed Problem Essential hypertension (80261887) BP (high blood pressure) (I10) Active confirmed Problem High cholesterol (22311956) High cholesterol (E78.00) Active confirmed Vital Signs Blood pressure diastolic 60 mm Hg 11/06/2024 Height 73 in 11/06/2024 Blood pressure systolic 118 mm Hg 11/06/2024 Weight 371.6 lbs 11/06/2024 BMI 49.02 kg/m2 11/06/2024 Procedures Procedure Date Ordered Date Performed Result Body Sit e Echocardiogram 01/30/2024 N/A Colonoscopy 04/17/2024 undefined CARDIO Echocardiogram 11/06/2024 N/A Encounters Encounter Location Date Provider Diagnosis [facility] [address] [place] [address] 01/30/2024 Kelly Garcia Dysuria R30.0 ; Fati kathy R53.83 and Chest pain R07.9 [facility] [address] [place] [address] 04/02/2024 Conor Parish Hepatomegaly R16.0 [facility] [address] [place] [address] 11/06/2024 Conor Parish Lymphedema I89.0 [facility] [address] [place] [address] 11/25/2023 Conor Hoy [facility] [address] [place] [address] 01/27/2024 Kelly Garcia [facility] [address] [facility] [address] 01/30/2024 Kelly Garcia RUQ abdominal pain R10.11 [facility] [address] [place] [address] 02/02/2024 Conor Hoy [facility] [address] [place] [address] 02/06/2024 Conor Hoy Occult blood positiv e stool R19.5 [facility] [address] [place] [address] 02/07/2024 Conor Hoy Anemia, iron deficie ncy D50.9 and Occult blood positive stool R19.5 [facility] [address] [place] [address] 02/10/2024 Conor Hoy [facility] [address] [facility] [address] 02/22/2024 Conor Dueñasluz elena [facility] [address] [facility] [place] [address] 02/24/2024 Conor Parish [facility] [address] [facility] [address] 02/25/2024 Conor Марина [facility] [address] [facility] [place] [address] 02/25/2024 Conor Parish [facility] [address] [facility] [place] [address] 04/05/2024 Conor Dueñasluz elena [facility] [address] [facility] [place] [address] 04/15/2024 Conor Марина [facility] [address] [facility] [place] [address] 09/01/2024 Conor Parish Lumbar radiculopathy M54.16 [facility] [address] [facility] [place] [address] 11/06/2024 Conor Parish Assessments Encounter Date Diagnosis (ICD Code) Assessment Notes Treatment Notes Treatment Clinical Notes Section Notes 01/30/2024 Dysuria (ICD-10 - R30.0) 01/30/2024 Fatigue (ICD-10 - R53.83) 04/02/2024 Hepatomegaly (ICD-10 - R16.0) 11/06/2024 Lymphedema (ICD-10 - I89.0) 01/30/2024 RUQ abdominal pain (ICD-10 - R10.11) 02/06/2024 Occult blood positive stool (ICD-10 - R19.5) 02/07/2024 Occult blood positive stool (ICD-10 - R19.5) 02/07/2024 Anemia, iron deficiency (ICD-10 - D50.9) 09/01/2024 Lumbar radiculopathy (ICD-10 - M54.16) 01/30/2024 Chest pain (ICD-10 - R07.9) EKG, trop ok return ER if needed call cardiology , earlier fu 01/30/2024 Other labs urine echo US RUQ [...] - Limited 01/30/2024 STOOL OCCULT BLOOD 01/30/2024 IRON 01/30/2024 PROTIME 04/02/2024 THYROID PROFILE WITH TSH 04/02/2024 VITAMIN B12 01/30/2024 US ABD 04/02/2024 XR CHEST 2 V 11/06/2024 THYROID PANEL (T4/TSH/FREE T3) THYROID PANEL (T4/TSH/FREE T3) Vitamin D 01/30/2024 Insurance Providers Payer Name Payer Address Payer Phone Subscriber Number Group Number Insured Name Patient Relationship to Insured Coverage Start Date Coverage End Date [employer] [address] [place] [address] [id number] Nehal Baig Self - patient is the insured Medications Administered Medication Instructions Date of Administration Dosage Notes Ketorolac Tromethamine 08/28/2023 60 mg 60 Orphenadrine Citrate 08/28/2023 60 mg 60 Medical (General) History Medical History History ICD Code hypertension Surgical History Surgery Date(Month/Year) Colonoscopy- Dr Connolly 04/17/2024 Colonoscopy- Dr Connolly 03/13/24 Epidural injections 10/2023 Pericardiocentesis 09/03/23 Aortic Valve Replacement 06/27/2023 shoulder replacement 07/2021 Carpal Tunnel release Bilateral 2021 Vasectomy 2014 left Achilles repair, EPF, r emoval of calcaneal spur and flexor hallucis longus tendon transfer 03/11/2023 Kidney Stone Removal Hospitalization History Reason Date(Month/Year) see above
--- OUTSIDE RECORDS SUMMARY | 2024-11-24 15:55 | XMS_ITS | Encounter Summary ---
Author Organization [facility] Address [address] [place] [address] Care Team Providers Care Insulation Engineman Name Role Phone Natalia Aguillon APRN.FASHION INTERN Primary Care Provider Huan Barragan Unavailable Huan Barragan Unavailable Source Comments In the event this information is protected by the Federal Confidentiality of Alcohol and Drug AbusePatient Records regulations: The Federal rules restrict any use of the information to criminally investigate or prosecute any alcohol or drug abuse patient.[facility] Encounter Details Date Type Department Care Team (Late st Contact Info) Description 09/14/2020 Patient Msg Internal Medicine [place] [address] [facility] [address] Provider, [place] Lung Nodule-Follow Up Social History [...] often do you attend chur ch or gnosticist services? Never 08/06/2020 Do you belong to any clubs o r organizations such as uatsdin groups, unions, fraternal [...] Answer Date Recorded PHQ-2 score 0 08/06/2020 [facility]at ional Health - Occupational Stress [...] in a senior living (including now)? No 08/06/2020 Area Deprivation Index Answer Date Omid rded National Score (1-100), lower number is lower ri sk Not on file 03/06/2020 State Score (1-10), lower number is lower risk N ot on file 03/06/2020 Data from: https://www.neighborhoodatlas.medicine.[facility].edu/. Last address used for calculation Not [...] on filedocumented in this encounter Care Teams Insulation Engineman Relationship Specialty Start Date End Date Natalia Aguillon APRN.FASHION INTERN [address] [place] [address] PCP - General Family Medicine 11/23/19 Huan Barragan [address] [place] [address] Referring Orthopedics 03/31/24 Huan Barragan [address] [place] [address] Referring Orthopedics 04/03/24 documented as of this encounter
--- OUTSIDE RECORDS SUMMARY | 2024-11-24 15:55 | XMS_ITS | Encounter Summary ---
Author Organization [facility] Address [address] [place] [address] Care Team Providers Care Case Packer Name Role Phone Natalia Aguillon APRN.AIRPORT TRAFFIC CONTROLLER Primary Care Provider Huan Barragan Unavailable Huan Barragan Unavailable Source Comments In the event this information is protected by the Federal Confidentiality of Alcohol and Drug AbusePatient Records regulations: The Federal rules restrict any use of the information to criminally investigate or prosecute any alcohol or drug abuse patient.[facility] Encounter Details Date Type Department Care Team (Late st Contact Info) Description 01/18/2020 Patient Msg [facility] [address] [place] [address] Basil Eugene [address] self-care practices Social [...] on filedocumented in this encounter Care Teams Case Packer Relationship Specialty Start Date End Date Natalia Aguillon APRN.CNP [address] [place] [address] PCP - General Family Medicine 11/23/19 Huan Barragan [address] [place] [address] Referring Orthopedics 03/31/24 Huan Barragan [address] [place] [address] Referring Orthopedics 04/03/24 documented as of this encounter
--- OUTSIDE RECORDS SUMMARY | 2024-11-24 15:55 | XMS_ITS | Encounter Summary ---
Author Organization [facility] Address [address] [place] [address] Care Team Providers Care Water Plant Maintenance Mechanic Name Role Phone Natalia Aguillon APRN.COMMERCIAL PLUMBER Primary Care Provider Huan Barragan Unavailable Huan Barragan Unavailable Source Comments In the event this information is protected by the Federal Confidentiality of Alcohol and Drug AbusePatient Records regulations: The Federal rules restrict any use of the information to criminally investigate or prosecute any alcohol or drug abuse patient.[facility] Encounter Details Date Type Department Care Team (Late st Contact Info) Description 09/14/2020 Patient Msg Internal Medicine [place] [address] [place] [address] Provider, [facility]cf E-consult PULM regarding lung nodule [...] often do you attend chur ch or zoroastrianism services? Never 08/06/2020 Do you belong to any clubs o r organizations such as adventism groups, unions, fraternal or athletic groups, or [...] Answer Date Recorded PHQ-2 score 0 08/06/2020 [facility] of Occupat ional Health - Occupational [...] N ot on file 03/06/2020 Data from: https://www.neighborhoodatlas.medicine.[facility].edu/. Last address used for calculation Not on [...] on filedocumented in this encounter Care Teams Water Plant Maintenance Mechanic Relationship Specialty Start Date End Date Natalia Aguillon, PSYCH ARNP.COMMERCIAL PLUMBER [address] [place] [address] PCP - General Family Medicine 11/23/19 Huan Barragan [address] [place] [address] Referring Orthopedics 03/31/24 Huan Barragan [address] [place] [address] Referring Orthopedics 04/03/24 documented as of this encounter
--- OUTSIDE RECORDS SUMMARY | 2024-11-24 15:55 | XMS_ITS | Encounter Summary ---
Author Organization [facility] Address [address] [place] [address] Care Team Providers Care Operations Tech Name Role Phone Natalia Aguillon APRN.CONVEYOR CONSOLE OPERATOR Primary Care Provider Huan Barragan Unavailable Huan Barragan Unavailable Source Comments In the event this information is protected by the Federal Confidentiality of Alcohol and Drug AbusePatient Records regulations: The Federal rules restrict any use of the information to criminally investigate or prosecute any alcohol or drug abuse patient.[facility] Encounter Details Date Type Department Care Team (Late st Contact Info) Description 01/07/2020 Patient Msg Internal Medicine [place] [address] [place] [address] Provider, Ccf CT BRAIN Social History Tobacco [...] on filedocumented in this encounter Care Teams Operations Tech Relationship Specialty Start Date End Date Natalia Aguillon APRN.CNP [address] [place] [address] PCP - General Family Medicine 11/23/19 Huan Barr[place] [address] Referring Orthopedics 03/31/24 Huan Barragan [address] [facility] [place] [address] Referring Orthopedics 04/03/24 documented as of this encounter
--- OUTSIDE RECORDS SUMMARY | 2024-11-24 15:55 | XMS_ITS | Encounter Summary ---
Author Organization [facility] Address [address] [place] [address] Care Team Providers Care Financial Aid Advisor Name Role Phone Demetrius Parish MD Primary Care Provider [phone] Encounter Details Date Type Department Care Team (Late st Contact Info) Description 11/17/2024 Orders Only [facility] Pain Medicine [address] [place] [address] [place] [phone] Marina Llamas CNP [address] [place] [phone] Social History Tobacco Use Types Packs/Day Years Used Date Smoking Tobacco: Never Passive Smoke Exposure: Never Smokeless Tobacco: Never Alcohol Use Standard Drinks/Week Comments Not Currently 0 (1 standard drink = 0.6 oz pur e alcohol) very rarely [facility] Utilities Answer Date Recorded In the past 12 months has e IPM [place], gas, oil, or water [employer] threatened to shut off services in your [...] any time in the past 12 m [facility], were you homeless or living in a half-way (including now)? No 06/25/2024 Hunger Vital Sign [...] Info) Description 12/09/2024 12:00 PM EDT Appointment [facility] MR Imaging [address] [place] [address] 12/09/2024 12:45 PM EDT Appointment [facility] MR Imaging [address] [place] [place] [address] 12/09/2024 1:30 PM EDT Follow-Up [facility] Surgery Clinic [address] [place] [place] [address] Ninfa Collazo, LEODAN [address] [place] [place] [address] 12/17/2024 11:20 AM EDT Office Visit [facility] Pain Medicine [address] [place] [address] [place] [phone] Minerva Smith MD [address] [facility] [place] [place] [phone] documented as of this encounter Visit Diagnoses Not on filedocumented in this encounter Care Teams Financial Aid Advisor Relationship Specialty Start Date End Date Demetrius Parish MD [address] [facility] [place] [address] PCP - General 06/13/23 documented as of this encounter
--- OUTSIDE RECORDS SUMMARY | 2024-11-24 15:55 | XMS_ITS | Encounter Summary ---
Author Organization [facility] Address [address] [place] [address] Care Team Providers Care Drop Tester Name Role Phone Demetrius Parish MD Primary Care Provider [phone] Reason for Visit * Reason Comments Med Refill Encounter Details Date Type Department Care Team (Late st Contact Info) Description 11/14/2024 Refill [facility] Card[facility] [address] [place] [phone] Zahra Smith PA-C [address] [place], [place] [id number] Nonrheumatic aortic valve insufficiency; SVT (supraventricular tachycardia) Social History Tobacco Use Types Packs/Day Years Used Date Smoking Tobacco: Never Passive Smoke Exposure: Never Smokeless Tobacco: Never Alcohol Use Standard Drinks/Week Comments Not Currently 0 (1 standard drink = 0.6 oz pur e alcohol) very rarely [facility] Utilities Answer Date Recorded In the past 12 months has [employer], gas, oil, or water [employer] threatened to shut off services in your [...] any time in the past 12 m [facility], were you homeless or living in a chcf (including now)? No 06/25/2024 Hunger Vital Sign [...] Info) Description 12/09/2024 12:00 PM EDT Appointment [facility] MR Imaging [address] [place] [phone] 12/09/2024 12:45 PM EDT Appointment [facility] MR Imaging [address] [place] [phone] 12/09/2024 1:30 PM EDT Follow-Up [facility] Surgery Clinic [address] [place] [address] Ninfa Collazo, LEODAN [address] [place] [address] 12/17/2024 11:20 AM EDT Office Visit [facility] Pain Medicine [address] [place] [address] [place] [phone] Minerva Smith MD [address] [facility] [place] [address] documented as of this encounter Visit Diagnoses Diagnosis Nonrheumatic aortic valve insufficiency SVT (supraventricular tachycardia) Other specified cardiac dysrhythmias documented in this encounter Care Teams Drop Tester Relationship Specialty Start Date End Date Demetrius Parish MD [address] [facility] [place] [address] PCP - General 06/13/23 documented as of this encounter
--- OUTSIDE RECORDS SUMMARY | 2024-11-24 15:55 | XMS_ITS | Clinical Summary ---
Author Organization [facility] Address [address] [facility], [address] [place] [address] Care Team Providers Care Psychiatric Secretary Name Role Phone Natalia Aguillon EZE - [place] Primary Care Provide r Allergies No known [...] 11:59 PM 08/02/2020 7:26 PM Care Teams Psychiatric Secretary Relationship Specialty Start Date End Date Natalia Aguillon APRN - [place] [address] [place], [place] [id number] PCP - General Nurse Practitioner 08/01/20
--- OUTSIDE RECORDS SUMMARY | 2024-11-24 15:55 | XMS_ITS | Clinical Summary ---
Author Organization [facility] Address [address] [place] [address] Care Team Providers Care Reducing Salon Attendant Name Role Phone Demetrius Parish MD Primary Care Provider [phone] Allergies Active Allergy Reactions Criticality Noted Date Comments Atorvastatin Other 07/18/2023 Myalgias Gabapentin Other 11/24/2024 Spironolactone Other 11/24/2024 Xqgotut-Bcy-Fek Reductase Inhibitors Other 07/14/2024 Medications baclofen (Lioresal) 20 mg tablet Take 20 mg by mouth in the morning, afternoon, and at bedtime. 4 Active cholecalciferol, vitamin D3, 50 mcg (2,000 unit) capsule 1 capsule 1 (one) time each day at the same time. Active dapagliflozin propanediol (Farxiga) 10 mgIndications:Be nign hypertensive heart disease without congestive heart failure Take 1 tablet (10 mg) by mouth once daily as directed. 90 tablet 3 4 Active metoprolol succinate XL (Toprol-XL) 25 mg 24 hr tabletIndication s:Nonrheumatic aortic valve insufficiency,SV T (supraventricula r tachycardia) Take 1 tablet (25 mg) by mouth in the morning. 90 tablet 3 4 02/03/20 25 Active multivitamin tablet Take 1 tablet by mouth in the morning. Active cyanocobalamin (Vitamin B-12) 1,000 mcg tablet Take 1,000 mcg by mouth in the morning. Active aspirin 81 mg EC tablet Take 81 mg by mouth in the morning. Active colchicine 0.6 mg tablet Take 0.6 mg by mouth in the morning. 4 Active ezetimibe (Zetia) 10 mg tablet Take 10 mg by mouth in the morning. 4 Active HYDROcodone-acet aminophen (Ogden) 7.5-325 mg tablet Take 1 tablet by mouth every 12 (twelve) hours if needed. 4 Active valsartan (Diovan) 40 mg tablet Take 40 mg by mouth in the morning. 4 Active omeprazole (PriLOSEC) [address] capsuleIndicatio ns:Nonrheumatic aortic valve insufficiency,SV T (supraventricula r tachycardia) TAKE 1 CAPSULE (40 MG) BY MOUTH BEFORE BREAKFAST 90 capsule 2 5 Active warfarin (Coumadin) 5 mg tablet Take 5 mg by mouth. Take as directed per After Visit Summary. Active spironolactone (Aldactone) 25 mg tabletIndication s:Benign hypertensive heart disease without congestive heart failure Take 1 tablet (25 mg) by mouth once daily as directed. 90 tablet 3 5 10/28/19 26 Active cefdinir (Omnicef) 300 mg capsule 2 capsules 1 (one) time each day at the same time. 5 Active doxycycline (Adoxa) 100 mg tablet every 12 (twelve) hours. 5 Active furosemide (Lasix) 40 mg tabletIndication s:Nonrheumatic aortic valve insufficiency,SV T (supraventricula r tachycardia) TAKE 1 TABLET BY MOUTH EVERY DAY IN THE MORNING 90 tablet 2 5 Active furosemide (Lasix) 20 mg tabletIndication s:Pericardial effusion Take 1 tablet (20 mg) by mouth in the morning. 90 tablet 3 4 11/18/19 25 Discontin ued(Dose adjustmen t) spironolactone (Aldactone) 25 mg tabletIndication s:Benign hypertensive heart disease without congestive heart failure Take 1 tablet (25 mg) by mouth once daily as directed. 90 tablet 3 4 10/28/19 25 Discontin ued(Reord er) Active Problems Problem Noted [...] (06/25/2024 12:58 PM EDT): EKG from the [place] [facility] showed asymmetric ST depressions in inferior [...] Diabetes 07/17/2023 07/17/2023 GERD (gastroesophageal reflux disease) 07/17/2023 Prostate cancer screening 07/17/20232023 SVT (supraventricular [...] Prediabetes 08/15/2021 07/17/2023 Environmental allergies 03/10/2021 07/17/19 24 Shortness of breath 03/10/2021 07/17/2023 Overview (07/17/2023): [...] Encounters Date Type Department Care Team Description 11/24/2024 9:00 AM EDT Procedure Visit [facility] [address] [place] [address] [place] [phone] Kadeem Hernandez MD Lumbar radiculopathy 11/17/2024 [facility] [address] [place] [address] [place] [phone] Marina Llamas CNP 11/14/2024 [facility] Cardiology Clinic [address] [place] [phone] Zahra Smith PA-C Nonrheumatic aortic valve insufficiency; SVT (supraventricular tachycardia) 11/12/2024 2:30 PM EDT Follow-Up [facility] Surgery Clinic [address] [place] [address] Ninfa Collazo CNP 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); Chronic back pain, unspecified back location, unspecified back pain laterality; Thoracic spondylosis; Lumbar radiculopathy; Schwannoma; Lumbar spondylosis 11/12/2024 1:19 PM EDT - 11/12/2024 11:59 PM EDT Hospital Encounter [facility] MR Imaging [address] [place] [address] Thoracic spondylosis Discharge Disposition: Home or Self Care () 10/27/2024 Refill [facility] [address] [place] [address] Kandis Peres MA Benign hypertensive heart disease without congestive heart failure 10/21/2024 2:15 PM EDT Follow-Up [facility] Surgery Clinic [address] [place] [phone] iNnfa Collazo CNP Thoracic spondylosis (Primary Dx); Lumbar radiculopathy; Chronic back pain, unspecified back location, unspecified back pain laterality; Lumbar spondylosis; Schwannoma 10/05/2024 Telephone Neurosurgery [address] [place] [phone] Ninfa Collazo CNP 09/25/2024 4:01 PM EDT - 09/25/2024 11:59 PM EDT Hospital Encounter [facility] X-Ray Imaging [address] [place] [address] Foreign body (FB) in soft tissue Discharge Disposition: Home or Self Care () 09/25/2024 3:47 PM EDT - 09/25/2024 4:00 PM EDT Hospital Encounter [facility] MR Imaging [address] [place] [address] Mass of spine Discharge Disposition: Home or [...] 0.6 oz pur e alcohol) very rarely [facility] Utilities Answer Date Recorded In the past 12 months has th e [employer], gas, oil, or water [employer] threatened to shut off services in your [...] any time in the past 12 m [facility], were you homeless or living in a custodial (including now)? No 06/25/2024 Hunger Vital Sign [...] Pulse 76 11/12/2024 2:53 PM EDT Temperature 36.1 C (97 F) 06/26/2024 2:22 PM EDT Respiratory Rate 16 06/26/2024 2:22 PM EDT Oxygen Saturation 94% 07/08/2024 9:39 AM EDT Inhaled Oxygen Concentration - - Weight 164 kg (362 lb) 11/12/2024 2:53 PM EDT Height 185.4 cm (6' 1 ) 11/12/2024 2:53 PM EDT Body Mass Index 47.76 11/12/2024 2:53 PM EDT Plan of Treatment Upcoming Encounters Date Type Department Care Team (Late st Contact Info) Description 12/09/2024 12:00 PM EDT Appointment [facility] MR [facility] [address] [facility] [place] [phone] 12/09/2024 12:45 PM EDT Appointment [facility] MR Imaging [address] [facility] [place] [place] [address] 12/09/2024 1:30 PM EDT Follow-Up [facility] Surgery Clinic [address] [facility] [place] [place] [phone] Ninfa Collazo, LEODAN [address] [facility] [place] [place] [address] 12/17/2024 11:20 AM EDT Office Visit [facility] Pain Medicine [address] [place] [phone] Minerva Smith MD [address] [facility] [place] [place] [address] Health Maintenance Due Date Last Done Comments CT Colonography 1972 Diabetes: Hemoglobin A1C 1972 FIT-DNA 1972 FIT 1972 FOBT 1972 Sigmoidoscopy 1972 Diabetes: Retinopathy Screening 1982 Diabetes: Urine Protein Screening 10/04/1991 Hepatitis B Vaccines (1 of 3 - 19+ 3-dose series) 10/04/1991 Pneumococcal Vaccine: Pediat rics (0 to 5 Years) and At-Risk Patients (6 to 64 Years) (1 of 2 - PCV) 10/04/1991 Zoster Vaccines (1 of 2) 2022 COVID-19 Vaccine (1 - 2023-2 5 season) 2023 Influenza Vaccine (#1) 2024 02/07/2015 Adult Tetanus 11/16/2025 11/17/2015 Depression Screening 11/24/2025 11/24/2024 Colonoscopy 08/01/2031 07/31/2021 Colorectal Cancer Screening 08/01/2031 [...] this topic Medical Devices Implanted Type Area Realtime Reporter Device Identifier Shelf Expiration Date Model / Serial / Lot Valve,Aortic, Conform-X,25 - [id number] - [id number] Implanted:Qty : 1 on 06/26/2023 by Fuad Bojorquez MD at [facility] Prosthetic Valve N/A: Aorta ATRI CURE [id number] 08/16/2023 ONXACE-2 5 / [id number] / 4h V-Plate Implanted:Qty : 1 on 06/26/2023 by Fuad Bojorquez MD at [facility] N/A: Sternum Other 115.101. 04 / / Description:RUDOLPH Bio Med 6h H-Plate Implanted:Qty : 1 on 06/26/2023 by Fuad Bojorquez MD at [facility] N/A: Sternum Other 115.102. 06 / / Description:rudolph bio med 4h Box Adi Implanted:Qty : 1 on 06/26/2023 by Fuad Bojorquez MD at [facility] N/A: Sternum Other 115.103. 04 / / Description:RUDOLPH BIO MED 10 Mm Screws Mint Implanted:Qty : 4 on 06/26/2023 by Fuad Bojorquez MD at [facility] N/A: Sternum Other 100.035. 10 / / 16 Mm Screws Gold Implanted:Qty : 6 on 06/26/2023 by Fuad Bojorquez MD at [facility] N/A: Sternum Other 100.035. 16 / / Description:RUDOLPH BIO MED 20 Mm Screws Magenta Implanted:Qty : 4 on 06/26/2023 by Fuad Bojorquez MD at [facility] N/A: Sternum Other 100.035. 20 / / Description:RUDOLPH BIO MED Procedures Procedure Name Priority Date/Time Associated Diagnosis Comments MR THORACIC SPINE WO CONTRAST Routine 11/12/2024 2:46 PM EDT Thoracic spondylosis MR LUMBAR SPINE W AND WO CONTRAST Routine 09/25/2024 5:04 PM EDT Mass of spine XR EYE FOREIGN BODY STAT 09/25/2024 4 :05 PM EDT Foreign body (FB) in soft tissue from Last 3 Months Results * MR thoracic spine wo contrast [...] AM Electronically signed: Twyla Frost. Ninfa Collazo [facility] IM MRI PROCEDURES Final Resul t * MR lumbar spine w and wo [...] Electronically signed: Clay Alvarado MD. Ninfa Collazo [facility] MRI PROCEDURES Final Resul t * XR [...] the orbits. Electronically signed: Drew Natarajan MD. us Rishiab Raul [facility] IMG XR PROCEDURES Final Result [...] 11:54 PM 07/05/2023 5:50 PM Care Teams Reducing Salon Attendant Relationship Specialty Start Date End Date Demetrius Parish MD [address] [facility] [address] [address] PCP - General 06/13/23
--- OUTSIDE RECORDS SUMMARY | 2024-11-24 15:55 | XMS_ITS | Encounter Summary ---
Author Organization [facility] Address [address] [place] [address] Care Team Providers Care Supervisor Sewing Department Name Role Phone Natalia Aguillon APRN.VALVE MACHINE OPERATOR Primary Care Provider Huan Barragan Unavailable Huan Barragan Unavailable Source Comments In the event this information is protected by the Federal Confidentiality of Alcohol and Drug AbusePatient Records regulations: The Federal rules restrict any use of the information to criminally investigate or prosecute any alcohol or drug abuse patient.[facility] Encounter Details Date Type Department Care Team (Late st Contact Info) Description 03/22/2021 Patient Msg Pulmonary Medicine [address] [facility] [address] [place] [address] Jimmy Sharma MD [address] [facility] [address] [place] [address] Breathing test Social History Tobacco [...] any clubs o r organizations such as anabaptist groups, unions, fraternal or athletic groups, or [...] Answer Date Recorded PHQ-2 score 0 08/06/2020 [facility] of Occupat ional [facility] - Occupational Stress Questionnaire Answer Date [...] N ot on file 03/06/2020 Data from: https://www.neighborhoodatlas.medicine.[facility].edu/. Last address used for calculation Not [...] on filedocumented in this encounter Care Teams Supervisor Sewing Department Relationship Specialty Start Date End Date Natalia Aguillon, JALOUSIES INSTALLER.VALVE MACHINE OPERATOR [address] [place] [address] PCP - General Family Medicine 11/23/19 Huan Barragan [address] [place] [address] Referring Orthopedics 03/31/24 Huan Barragan [address] [place] [address] Referring Orthopedics 04/03/24 documented as of this encounter
--- OUTSIDE RECORDS SUMMARY | 2024-11-24 15:55 | XMS_ITS | Encounter Summary ---
Author Organization [facility] Address [address] [place] [address] Care Team Providers Care Video Tape Transferrer Name Role Phone Natalia Aguillon APRN.BUSINESS PRACTICES SUPERVISOR Primary Care Provider Huan Barragan Unavailable Huan Barragan Unavailable Source Comments In the event this information is protected by the Federal Confidentiality of Alcohol and Drug AbusePatient Records regulations: The Federal rules restrict any use of the information to criminally investigate or prosecute any alcohol or drug abuse patient.[facility] Encounter Details Date Type Department Care Team (Late st Contact Info) Description 08/30/2021 Patient Msg Nutrition Therapy [address] [address] Provider, Ccalan nutrition Social History Tobacco Use [...] often do you attend chur ch or yarsani services? Never 08/06/2020 Do you belong to any clubs o r organizations such as nondenominational groups, unions, fraternal or athletic groups, or [...] Answer Date Recorded PHQ-2 score 1 08/09/2021 [facility] of Occupat ional Health - [...] place to sleep or slept in a skilled nursing (including now)? No 07/21/2021 Area Deprivation Index Answer Date Omid rded National Score (1-100), lower number is lower ri sk 84 08/17/2021 State Score (1-10), lower number is lower risk N ot on file 08/17/2021 Data from: https://www.neighborhoodatlas.medicine.[facility].edu/. Last address used for calculation [address] [...] on filedocumented in this encounter Care Teams Video Tape Transferrer Relationship Specialty Start Date End Date Natalia Aguillon APRN.BUSINESS PRACTICES SUPERVISOR [address] [place] [address] PCP - General Family Medicine 11/23/19 Huan Barragan [address] [place] [address] Referring Orthopedics 03/31/24 Huan Barragan [address] [place] [address] Referring Orthopedics 04/03/24 documented as of this encounter
--- OUTSIDE RECORDS SUMMARY | 2024-11-24 15:55 | XMS_ITS | Clinical Summary ---
Author Organization [facility] Address [address] [place] [address] Care Team Providers Care Plier Worker Name Role Phone Demetrius Parish MD Primary Care Provider [phone] Allergies Active Allergy Reactions Criticality Noted Date [...] file Insurance [employer] Care Teams Plier Worker Relationship Specialty Start Date End Date Demetrius Parish MD PCP - General Family Medicine 01/28/24
--- OUTSIDE RECORDS SUMMARY | 2024-11-24 15:55 | XMS_ITS | Encounter Summary ---
Author Organization [facility] Address [address] [place] [address] Care Team Providers Care Etl Lead Name Role Phone Demetrius Parish MD Primary Care Provider [phone] Encounter Details Date Type Department Care Team (Late st Contact Info) Description 07/29/2023 Abstract [facility] [address] [place] [phone] Huan Barragan DO [address] [place] [address] Social History Tobacco Use Types Packs/Day Years [...] on filedocumented in this encounter Care Teams Etl Lead Relationship Specialty Start Date End Date Demetrius Parish MD PCP - General Family Medicine 01/28/24 documented as of this encounter
--- OUTSIDE RECORDS SUMMARY | 2024-11-24 15:55 | XMS_ITS | Encounter Summary ---
Author Organization [facility] Address [address] [place] [address] Care Team Providers Care Missile And Missile Checkout Technician Name Role Phone Natalia Aguillon APRN.POST DOC FELLOWSHIP Primary Care Provider Huan Barragan Unavailable Huan Barragan Unavailable Source Comments In the event this information is protected by the Federal Confidentiality of Alcohol and Drug AbusePatient Records regulations: The Federal rules restrict any use of the information to criminally investigate or prosecute any alcohol or drug abuse patient.[facility] Encounter Details Date Type Department Care Team (Late st Contact Info) Description 10/27/2021 Patient Msg Endocrinology [address] [place] [address] Becca Boateng, PSS Appointment Requested [...] often do you attend chur ch or orthodox services? Never 08/06/2020 Do you belong to any clubs o r organizations such as quaker groups, unions, fraternal or athletic groups, or [...] Answer Date Recorded PHQ-2 score 1 08/09/2021 [facility] of Occupat ional Health [...] place to sleep or slept in a snf (including now)? No 07/21/2021 Area Deprivation Index Answer Date Omid rded National Score (1-100), lower number is lower ri sk 84 08/17/2021 State Score (1-10), lower number is lower risk N ot on file 08/17/2021 Data from: https://www.neighborhoodatlas.medicine.[facility]/. Last address used for calculation [address] [...] on filedocumented in this encounter Care Teams Missile And Missile Checkout Technician Relationship Specialty Start Date End Date Natalia Aguillon, BANKING ATTORNEY.POST DOC FELLOWSHIP [address] [place] [address] PCP - General Family Medicine 11/23/19 Huan Barragan [address] [place] [address] Referring Orthopedics 03/31/24 Huan Barragan [address] [place] [address] Referring Orthopedics 04/03/24 documented as of this encounter
--- OUTSIDE RECORDS SUMMARY | 2024-11-24 15:55 | XMS_ITS | Encounter Summary ---
Author Organization [facility] Address [address] [place] [address] Care Team Providers Care Fish Cleaner Name Role Phone Natalia Aguillon APRN.BINGO WORKER Primary Care Provider Huan Barragan Unavailable Huan Barragan Unavailable Source Comments In the event this information is protected by the Federal Confidentiality of Alcohol and Drug AbusePatient Records regulations: The Federal rules restrict any use of the information to criminally investigate or prosecute any alcohol or drug abuse patient.[facility] Encounter Details Date Type Department Care Team (Late st Contact Info) Description 01/01/2020 Patient Msg [facility] [address] [place] [phone] Basil Eugene [facility] [address]DRESS Appointment Cancellation Request [...] on filedocumented in this encounter Care Teams Fish Cleaner Relationship Specialty Start Date End Date Natalia Aguillon APRN.CNP [address] [place] [address] PCP - General Family Medicine 11/23/19 Huan Barragan [address] [place] [address] Referring Orthopedics 03/31/24 Huan Barragan [address] [place] [address] Referring Orthopedics 04/03/24 documented as of this encounter
--- OUTSIDE RECORDS SUMMARY | 2024-11-24 15:55 | XMS_ITS | Encounter Summary ---
Author Organization [facility] Address [address] [place] [address] Care Team Providers Care Nurse Practitioner Physician Assistant Name Role Phone Natalia Aguillon APRN.MANAGEMENT ACCOUNTS MANAGER Primary Care Provider Huan Barragan Unavailable Huan Barragan Unavailable Source Comments In the event this information is protected by the Federal Confidentiality of Alcohol and Drug AbusePatient Records regulations: The Federal rules restrict any use of the information to criminally investigate or prosecute any alcohol or drug abuse patient.[facility] Encounter Details Date Type Department Care Team (Late st Contact Info) Description 05/16/2021 Patient Msg Internal Medicine [place] [address] [place], [place] [phone] Provider, [facility] Appointment Social History Tobacco Use [...] often do you attend chur ch or christian services? Never 08/06/2020 Do you belong to [...] Answer Date Recorded PHQ-2 score 0 08/06/2020 [facility] of Occupat ional Health - Occupational Stress [...] in a skilled nursing (including now)? No 08/06/2020 Area Deprivation Index Answer Date Omid rded National Score (1-100), lower number is lower ri sk Not on file 03/06/2020 State Score (1-10), lower number is lower risk N ot on file 03/06/2020 Data from: https://www.neighborhoodatlas.medicine.[facility].edu/. Last address used for calculation Not [...] on filedocumented in this encounter Care Teams Nurse Practitioner Physician Assistant Relationship Specialty Start Date End Date Natalia Aguillon, CONCRETE ROD BUSTER.MANAGEMENT ACCOUNTS MANAGER [address] [place] [address] PCP - General Family Medicine 11/23/19 Huan Barragan [address] [place] [address] Referring Orthopedics 03/31/24 Huan Barragan [address] [place] [address] Referring Orthopedics 04/03/24 documented as of this encounter
--- OUTSIDE RECORDS SUMMARY | 2024-11-24 15:56 | XMS_ITS | Encounter Summary ---
Author Organization [facility] Address [address] [place] [address] Care Team Providers Care Cow Washer Name Role Phone Khadijah Viera PA-C Primary Care Provider [phone] Sarah Viera DO Primary Care Provider [phone] Natalia Aguillon APRN.POWER SEWING MACHINE OPERATOR Primary Care Provider Huan Barragan Unavailable Huan Barragan Unavailable Source Comments In the event this information is protected by the Federal Confidentiality of Alcohol and Drug AbusePatient Records regulations: The Federal rules restrict any use of the information to criminally investigate or prosecute any alcohol or drug abuse patient.[facility] Reason for Visit * Reason Comments PSG Check In Encounter Details Date Type Department Care Team (Late st Contact Info) Description 08/09/2016 Abstract Neurology [address] [id number] Main, Sleep Center [address] [phone] PSG Check In Social History Tobacco Use [...] on filedocumented in this encounter Care Teams Cow Washer Relationship Specialty Start Date End Date Khadijah Viera PA-C [address] [place] [address] PCP - General Anesthesiology 08/09/16 08/09/16 Sarah Viera DO [address] [place] [address] PCP - General Family Medicine 08/14/16 11/22/19 Natalia Aguillon APRN.POWER SEWING MACHINE OPERATOR [address] [place] [address] PCP - General Family Medicine 11/23/19 Huan Barragan [address] [place] [address] Referring Orthopedics 03/31/24 Huan Barragan [address] [place] [address] Referring Orthopedics 04/03/24 documented as of this encounter
--- OUTSIDE RECORDS SUMMARY | 2024-11-24 15:56 | XMS_ITS | Encounter Summary ---
Author Organization [facility] Address [address] [place] [address] Care Team Providers Care Varnisher Apprentice Name Role Phone Bharti Wallis MD Primary Care Provider [phone] Demetrius Parish MD Primary Care Provider [phone] Encounter Details Date Type Department Care Team (Late st Contact Info) Description 03/18/2023 Abstract [facility] [address] [place] [address] Huan Barragan DO [address] [place] [address] Social History Tobacco Use Types Packs/Day Years [...] on filedocumented in this encounter Care Teams Varnisher Apprentice Relationship Specialty Start Date End Date Bharti Wallis MD [address] [place] [address] PCP - General Family Medicine 08/07/22 06/18/23 Demetrius Parish MD [address] [place] [address] PCP - General Family Medicine 01/28/24 documented as of this encounter
--- OUTSIDE RECORDS SUMMARY | 2024-11-24 15:56 | XMS_ITS | Encounter Summary ---
Author Organization [facility] Address [address] [place] [address] Care Team Providers Care Ballet Master/Mistress Name Role Phone Natalia Aguillon APRN.CARDIOLOGY PHYSICIAN ASSISTANT Primary Care Provider Huan Barragan Unavailable Huan Barragan Unavailable Source Comments In the event this information is protected by the Federal Confidentiality of Alcohol and Drug AbusePatient Records regulations: The Federal rules restrict any use of the information to criminally investigate or prosecute any alcohol or drug abuse patient.[facility] Encounter Details Date Type Department Care Team (Late st Contact Info) Description 12/25/2021 Patient Msg Endocrinology [address] [place], [place] [id number] Provider, Ccf Free Exercise Consult Social History [...] often do you attend chur ch or jainism services? Never 08/06/2020 Do you belong to any clubs o r organizations such as zoroastrianism groups, unions, fraternal or athletic groups, or [...] Answer Date Recorded PHQ-2 score 1 08/09/2021 [facility] Occup[facility] ional [facility] - Occupational [...] slept in a longterm (including now)? No 07/21/2021 Area Deprivation Index Answer Date Omid rded National Score (1-100), lower number is lower ri sk 84 08/17/2021 State Score (1-10), lower number is lower risk N ot on file 08/17/2021 Data from: https://www.neighborhoodatlas.medicine.[facility].edu/. Last address used for calculation [...] on filedocumented in this encounter Care Teams Ballet Master/Mistress Relationship Specialty Start Date End Date Natalia Agiullon, PROFESSIONAL NURSING ASSISTANT.CARDIOLOGY PHYSICIAN ASSISTANT [address] [place] [address] PCP - General Family Medicine 11/23/19 Huan Barragan [address] [place] [address] Referring Orthopedics 03/31/24 Huan Barragan [address] [place] [address] Referring Orthopedics 04/03/24 documented as of this encounter
--- OUTSIDE RECORDS SUMMARY | 2024-11-24 15:56 | XMS_ITS | Encounter Summary ---
Author Organization [facility] Address [address] [place] [address] Care Team Providers Care Machine Castings Plasterer Name Role Phone Natalia Aguillon APRN.ADJUNCT SOCIOLOGY PROFESSOR Primary Care Provider Huan Barragan Unavailable Huan Barragan Unavailable Source Comments In the event this information is protected by the Federal Confidentiality of Alcohol and Drug AbusePatient Records regulations: The Federal rules restrict any use of the information to criminally investigate or prosecute any alcohol or drug abuse patient.[facility] Encounter Details Date Type Department Care Team (Late st Contact Info) Description 08/16/2022 Patient Msg Internal Medicine [place] [address] [place] [address] Provider, Ccf Update Insurance Social History Tobacco [...] How often do you attend chur or pentecostalism services? Patient declined 08/20/2022 Do you belong to any clubs o r organizations such as buddhist groups, unions, fraternal or athletic groups, or [...] Answer Date Recorded PHQ-2 score 0 05/21/2022 [facility] Occupat ional Health - [...] slept in a assisted (including now)? No 08/20/2022 Area Deprivation Index Answer Date Omid rded National Score (1-100), lower number is lower ri sk 78 08/20/2022 State Score (1-10), lower number is lower risk 6 08/20/2022 Data from: https://www.neighborhoodatlas.medicine.[facility].edu/. Last address used for calculation [address] [...] filedocumented in this encounter Care Teams Machine Castings Plasterer Relationship Specialty Start Date End Date Natalia Aguillon, IS/IT PROJECT MANAGER.ADJUNCT SOCIOLOGY PROFESSOR [address] [place] [address] PCP - General Family Medicine 11/23/19 Huan Barragan [address] [place] [address] Referring Orthopedics 03/31/24 Huan Barragan [address] [place] [address] Referring Orthopedics 04/03/24 documented as of this encounter
--- OUTSIDE RECORDS SUMMARY | 2024-11-24 15:56 | XMS_ITS | Encounter Summary ---
Author Organization [facility] Address [address] [place] [address] Care Team Providers Care Etl Software Engineer Name Role Phone Natalia Aguillon APRN.DIRECTOR OF CULTURE Primary Care Provider Huan Barragan Unavailable Huan Barragan Unavailable Source Comments In the event this information is protected by the Federal Confidentiality of Alcohol and Drug AbusePatient Records regulations: The Federal rules restrict any use of the information to criminally investigate or prosecute any alcohol or drug abuse patient.[facility] Encounter Details Date Type Department Care Team (Late st Contact Info) Description 01/17/2021 Patient g Navigate [facility] [place] [address] [phone] Provider, Ccf Consult to Pulmonary Medicine Social [...] often do you attend chur ch or caodaism services? Never 08/06/2020 Do you belong to any clubs o r organizations such as mandaen groups, unions, fraternal [...] Answer Date Recorded PHQ-2 score 0 08/06/2020 [facility] Occupat ional Health - Occupational [...] place to sleep or slept in a alf (including now)? No 08/06/2020 Area Deprivation Index Answer Date Omid rded National Score (1-100), lower number is lower ri sk Not on file 03/06/2020 State Score (1-10), lower number is lower risk N ot on file 03/06/2020 Data from: https://www.neighborhoodatlas.medicine.[facility].edu/. Last address used for calculation [...] filedocumented in this encounter Care Teams Etl Software Engineer Relationship Specialty Start Date End Date Natalia Aguillon, EZE.DIRECTOR OF CULTURE [address] [place] [address] PCP - General Family Medicine 11/23/19 Huan Barragan [address] [place] [address] Referring Orthopedics 03/31/24 Huan Barragan [address] [place] [address] Referring Orthopedics 04/03/24 documented as of this encounter
--- OUTSIDE RECORDS SUMMARY | 2024-11-24 15:56 | XMS_ITS | Encounter Summary ---
Author Organization [facility] Address [address] [place] [address] Care Team Providers Care Engineering Librarian Name Role Phone Pcp, No Primary Care Provider Unavailabl e Khadijah Viera PA-C Primary Care Provider [phone] Sarah Viera DO Primary Care Provider [phone] Natalia Aguillon APRN.BUSINESS ACCOUNT SPECIALIST Primary Care Provider Huan Barragan Unavailable Huan Barragan Unavailable Source Comments In the event this information is protected by the Federal Confidentiality of Alcohol and Drug AbusePatient Records regulations: The Federal rules restrict any use of the information to criminally investigate or prosecute any alcohol or drug abuse patient.[facility] Reason for Visit * Reason Comments PSG Check In Encounter Details Date Type Department Care Team (Late st Contact Info) Description 06/25/2016 Abstract Neurology [address] [place] [address] Main, Sleep Center [address] [phone] PSG Check In Social History Tobacco Use [...] on filedocumented in this encounter Care Teams Engineering Librarian Relationship Specialty Start Date End Date Pcp, No PCP - General 04/24/16 08/08/16 Khadijah Viera PA-C [address] [place] [address] PCP - General Anesthesiology 08/09/16 08/09/16 Sarah Viera DO [address] [facility] [place] [address] PCP - General Family Medicine 08/14/16 11/22/19 Natalia Aguillon APRN.[facility] [address] [place] [address] PCP - General Family Medicine 11/23/19 Huan Barragan [address] [place] [address] Referring Orthopedics 03/31/24 Huan Barragan [address] [place] [address] Referring Orthopedics 04/03/24 documented as of this encounter
--- OUTSIDE RECORDS SUMMARY | 2024-11-24 15:56 | XMS_ITS | Encounter Summary ---
Author Organization [facility] Address [facility] [place] [address] Care Team Providers Care Lmft Name Role Phone Natalia Aguillon APRN.[employer] Primary Care Provider Huan Barragan Unavailable Huan Barragan Unavailable Source Comments In the event this information is protected by the Federal Confidentiality of Alcohol and Drug AbusePatient Records regulations: The Federal rules restrict any use of the information to criminally investigate or prosecute any alcohol or drug abuse patient.[facility] Encounter Details Date Type Department Care Team (Late st Contact Info) Description 05/07/2024 Patient Msg Internal Medicine [facility] [place], [place] [phone] Provider, Ccf Reminder: Review your MyChart Caregiver(s) [...] 08/20/2022 How often do you attend chur ch or amish services? Patient declined 08/20/2022 Do you belong [...] Answer Date Recorded PHQ-2 score 0 04/20/2024 [facility] Occupat ional Health - Occupational [...] in a group home (including now)? No 08/20/2022 Area Deprivation Index Answer Date Omid rded National Score (1-100), lower number is lower ri sk 78 08/20/2022 State Score (1-10), lower number is lower risk 6 08/20/2022 Data from: https://www.neighborhoodatlas.[facility].edu/. Last address used for calculation [address] 08/20/2022 Education Answer Date Recorded What is [...] on filedocumented in this encounter Care Teams Lmft Relationship Specialty Start Date End Date Natalia Aguillon, HEATING EQUIPMENT INSTALLER.EMPLOYEE RELATIONS MANAGER [address] [place] [address] PCP - General Family Medicine 11/23/19 Huan Barragan [address] [place] [address] Referring Orthopedics 03/31/24 Huan Barragan [address] [place] [address] Referring Orthopedics 04/03/24 documented as of this encounter
--- OUTSIDE RECORDS SUMMARY | 2024-11-24 15:56 | XMS_ITS | Clinical Summary ---
Author Organization [facility] Address [address] [place] [address] Care Team Providers Care Air Carrier Operations Inspector Name Role Phone Natalia Aguillon APRNPAZ Primary [...] tablet Take 25 mg by mouth. 07/18/19 24 025 Active HYDROcodone-Acet aminophen (NORCO) 7.5-325 mg [...] tablet Take 20 mg by mouth. 07/11/19 24 Active Active Problems Problem Noted Date Diagnosed [...] How often do you attend chur or anabaptism services? Patient declined 08/20/2022 Do you belong to any clubs o r organizations such as anglican groups, unions, fraternal or athletic groups, or [...] Answer Date Recorded PHQ-2 score 0 04/20/2024 [facility] of Occupat ional Health - Occupational Stress [...] place to sleep or slept in a custodial (including now)? No 08/20/2022 Area Deprivation Index Answer Date Omid rded National Score (1-100), lower number is lower ri sk 78 08/20/2022 State Score (1-10), lower number is lower risk 6 08/20/2022 Data from: https://www.neighborhoodatlas.medicine.[facility].edu/. Last address used for calculation [address] [...] * HEMOGLOBIN A1C (04/20/2024 4:19 PM EST) Pathologist [facility] Hemoglobin A1C 5.1 4.3 - 5.6 % 04/21/2024 5:25 AM EST [facility] Comment:Citizen Of [place] Diabetes As sociation guidelines indicate that patients with HgbA1c in the range 5.7-6.4% are at increased risk for development of diabetes, and intervention by lifestyle modification may be beneficial. HgbA1c greater or equal to 6.5% is considered diagnostic of diabetes. Estimated Average Glucose 100 mg/dL 04/21/2024 5:25 AM EST [facility] Comment:eAG: (Estimated aver age glucose) is a calculated value from HgbA1c and is indirect sales representative of the average blood glucose level in the last 2-3 month period. Blood BLOOD SPECIMEN / Unknown Venipuncture / Unknown 04/20/2024 4:19 PM EST 04/20/2024 4:20 PM EST us Guy Mcdonald MD LABORATORY Final Result Performing Organization Address City/State/[facility] Co de Phone Number [facility] [address] [phone], * (ABNORMAL) LIPID PANEL BASIC (08/18/2022 8:18 AM EDT) [facility] Cholesterol, Total 227(H) <200 mg/dL 08/18/2022 9:22 AM T [facility] Comment: <200 mg/dL, Desirable 200-239 mg/dL, Borderline high >239 mg/dL, High Triglyceride 163(H) <150 mg/dL 08/18/2022 9:22 AM EDT [facility] Comment: <150 mg/dL, Normal 150-199 mg/dL, Borderline high 200-499 mg/dL, High >499 mg/dL, Very high HDL Cholesterol 40 >39 mg/dL 9:22 AM [facility] Comment: 40-59 mg/dL, Acceptable >59 mg/dL, High: Negative risk factor for coronary heart disease <40 mg/dL, Low: Positive risk factor for coronary heart disease Non HDL Cholesterol 187(H) <130 mg/dL 08/18/2022 9:22 AM EDT [facility] Comment: <130 mg/dL, Optimal 130-159 mg/dL, Near optimal/above optimal 160-189 mg/dL, Borderline high 190-219 mg/dL, High >219 mg/dL, Very high Secondary prevention optimal non HDL Cholesterol levels are recommended to be <100 mg/dL Fasting Time 12 hrs 08/18/2022 9:22 AM EDT [facility] VLDL Cholesterol 33(H) <30 mg/dL 08/19/19 9:22 AM EDT [facility] TC:HDL Ratio 5.68(H) <5.10 08/18/2022 9:22 AM EDT [facility] LDL Cholesterol, Calculated 154(H) <100 mg/dL 08/18/2022 9:22 AM EDT [facility] Comment: <100 mg/dL, Optimal 100-129 mg/dL, Near optimal/above optimal 130-159 mg/dL, Borderline high 160-189 mg/dL, High >189 mg/dL, Very high Secondary prevention optimal LDL Cholesterol levels are recommended to be < 70 mg/dL LDL:HDL Ratio 3.85(H) <2.54 08/18/2022 9:22 AM EDT [facility] Comment: Reference: 1. National Cholesterol Education Program ATP III Guideline At-A-Glance Quick Desk Reference: National Heart, Lung, and Blood [place]. National Institutes of Health. 2001: NIH Publication No. 01-3305. 2. An International Atherosclerosis Society position paper: global recommendations for the management of dyslipidemia: executive summary, Atherosclerosis. 2014: 232(2):410-413. Blood BLOOD SPECIMEN / Unknown Venipuncture / Unknown 08/18/2022 8:18 AM EDT 08/18/2022 8:18 AM EDT Natalia Aguillon APRN.FIRE EXTINGUISHER REPAIRER INSPECTOR LABORATORY Final R esult [facility] [address] [place] [address], * COLONOSCOPY DIAGNOSTIC (07/31/2021 10:37 AM EDT) Anatomical Region Laterality Modality Other 07/31/2021 10:3 7 AM EDT Narrative 07/31/2021 11:44 AM EDT [facility] Gastrointestinal Endoscopy Patient Name: Pardeep Engel Procedure Date: 07/31/2021 10:37 AM Date of : 1970 Admit Type: Outpatient Age: 50 Room: [facility] Gender: Male Note Status: Finalized Attending [...] for the specimen was done by the rv service technician using the patient's name, date and [...] present medications. Procedure Code(s): --- Professional --- 70582, Colonoscopy, flexible; with removal of tumor(s), polyp(s), or other lesion(s) by snare technique Diagnosis Code(s): --- Professional --- Q43.8, Other specified congenital malformations of intestine K63.5, Polyp of colon CPT copyright 2019 Citizen [place] Medical Association. All rights reserved. The codes documented in this report are preliminary and upon machinery repair maintenance supervisor review may be revised to meet current compliance requirements. Attending Participation: I personally performed the entire procedure. Scope In: 11:03:57 AM Scope Out: 11:37:13 AM MD Kahlil Gold MD 07/31/2021 11:44:54 AM This report has been signed electronically by Kahlil Patel MD Number of Addenda: 0 Note Initiated On: 07/31/2021 10:37 AM Estimated Blood Loss: Estimated blood loss was minimal. Natalia Aguillon APRN.CNP DIGESTIVE DISEASE Final Result * HIV 1 2 COMBO(AG/AB),WITH REFLEX TO DIFFERENTIATION (11/23/2019 4:09 PM EDT) HIV 12 Combo (Ag/Ab) Non Reactive Non Reactive 11/24/2019 11:27 AM EDT [facility] HIV 1/2 Ab Confirmatory Test Not Indicated 11/24/2019 11:27 AM EDT [facility] HIV Interpretation Negative 11/24/2019 11:27 AM EDT [facility] Comment: No evidence of HIV-1 or HIV-2 infection. Should recent infection be suspected, repeat testing may be considered 2-3 weeks after this draw. HIV Information: [place] Rev. Code 3701.243(E): This information has been [...] Natalia Aguillon APRN.CNP LABORATORY Final R esult Performing Organization Address City/[facility]/ZIP Co de Phone Number [facility] [address] [place] [address] [facility] [address] [place] [address] * HEP C AB IA W/CONF SCRN (11/23/2019 4:09 PM EDT) Hep C Antibody IA Negative Negative 11/24/2019 11:27 AM EDT [facility] Blood specimen (specimen) BLOOD SPECIMEN / Unknown 11/23/2019 4:09 PM EDT 11/23/2019 4:11 PM EDT Natalia Aguillon APRN.FIRE EXTINGUISHER REPAIRER INSPECTOR LABORATORY Final R esult [facility] [address] [place] [address] [facility] [address] [place] [address] from Last 3 Months or Most Recently Relevant to Health Maintenance Insurance BLUE CARD PPO OOS Care Teams Air Carrier Operations Inspector Relationship Specialty Start Date End Date Natalia Aguillon, SCIENCE SPECIALIST.FIRE EXTINGUISHER REPAIRER INSPECTOR [address] [place] [address] PCP - General Family Medicine 11/23/19 Huan Barragan [address] [place] [address] Referring Orthopedics 03/31/24 Huan Barragan [address] [place] [address] Referring Orthopedics 04/03/24
--- OUTSIDE RECORDS SUMMARY | 2024-11-24 15:56 | XMS_ITS | Encounter Summary ---
Author Organization [facility] Address [address] [place] [address] Care Team Providers Care Branch Retail Executive Name Role Phone Demetrius Parish MD Primary Care Provider [phone] Reason for Visit * Reason Comments Med Refill Encounter Details Date Type Department Care Team (Late st Contact Info) Description 12/11/2023 Refill [facility] Vascular and Endovascular Surgery [address] [place] [phone] Peter Rouse, SUPERVISOR [employer] [address] [facility] [place] [place] [address] Nonrheumatic aortic valve insufficiency; SVT (supraventricular tachycardia) Social History Tobacco Use Types Packs/Day Years Used Date Smoking Tobacco: Never Passive Smoke Exposure: Never Smokeless Tobacco: Never Alcohol Use Standard Drinks/Week Comments Not Currently 0 (1 standard drink = 0.6 oz pur e alcohol) very rarely [facility] Utilities Answer Date Recorded In the past 12 months has [employer], gas, oil, or water [employer]illinginfo threatened to shut off services in your [...] slept in a jail (including now)? No 09/02/2023 Hunger Vital Sign [...] Info) Description 12/09/2024 12:00 PM EDT Appointment [facility] MR Imaging [address] [place] [address] 12/09/2024 12:45 PM EDT Appointment [facility] MR Imaging [address] [place] [address] 12/09/2024 1:30 PM EDT Follow-Up [facility] Surgery Clinic [address] [place] [address] Ninfa Collazo CNP [address] [place] [address] 12/17/2024 11:20 AM EDT Office Visit [facility] Medicine [address] [place] [address] [place] [address] Minerva Smith MD [address] [place] [address] documented as of this encounter Visit Diagnoses Diagnosis Nonrheumatic aortic valve insufficiency SVT (supraventricular tachycardia) Other specified cardiac dysrhythmias documented in this encounter Care Teams Branch Retail Executive Relationship Specialty Start Date End Date Demetrius Parish MD [address] [facility] [place] [address] PCP - General 06/13/23 documented as of this encounter
--- OUTSIDE RECORDS SUMMARY | 2024-11-24 15:56 | XMS_ITS | Encounter Summary ---
Author Organization [facility] Address [address] [place] [id number] Care Team Providers Care Dial Maker Name Role Phone Natalia Aguillon APRN.LEASE ADMINISTRATOR Primary Care Provider Huan Barragan Unavailable Huan Barragan Unavailable Source Comments In the event this information is protected by the Federal Confidentiality of Alcohol and Drug AbusePatient Records regulations: The Federal rules restrict any use of the information to criminally investigate or prosecute any alcohol or drug abuse patient.[facility] Encounter Details Date Type Department Care Team (Late st Contact Info) Description 12/20/2020 Get Medical Advice Orthopaedics [address] [place] [address] Simon Douglass MD [address] [place], [place] [phone] Upcoming Appointment Question Social History Tobacco Use [...] often do you attend chur ch or hinduism services? Never 08/06/2020 Do you belong to any clubs o r organizations such as shinto groups, unions, fraternal or athletic groups, or [...] Date Recorded PHQ-2 score 0 08/06/2020 [facility] - Occupational [...] N ot on file 03/06/2020 Data from: https://www.neighborhoodatlas.medicine.[facility].edu/. Last address used for calculation Not [...] on filedocumented in this encounter Care Teams Dial Maker Relationship Specialty Start Date End Date Natalia Aguillon, HEATER MECHANIC.LEASE ADMINISTRATOR [address] [place] [address] PCP - General Family Medicine 11/23/19 Huan Barragan [address] [place] [address] Referring Orthopedics 03/31/24 Huan Barragan [address] [place] [address] Referring Orthopedics 04/03/24 documented as of this encounter
--- OUTSIDE RECORDS SUMMARY | 2024-11-24 15:56 | XMS_ITS | Encounter Summary ---
Author Organization [facility] Address [address] [place] [address] Care Team Providers Care Document Preparer Microfilming Name Role Phone Natalia Aguillon APRN.PRUNER Primary Care Provider Huan Barragan Unavailable Huan Barragan Unavailable Source Comments In the event this information is protected by the Federal Confidentiality of Alcohol and Drug AbusePatient Records regulations: The Federal rules restrict any use of the information to criminally investigate or prosecute any alcohol or drug abuse patient.[facility] Encounter Details Date Type Department Care Team (Late st Contact Info) Description 12/20/2020 Get Medical Advice Orthopaedics [address] [place] [address] Simon Douglass MD [address] [place], [place] [phone] RE: Upcoming Appointment Question Social History Tobacco [...] any clubs o r organizations such as mormonism groups, unions, fraternal or athletic groups, or [...] Answer Date Recorded PHQ-2 score 0 08/06/2020 [facility] - Occupational [...] place to sleep or slept in a halfway (including now)? No 08/06/2020 Area Deprivation Index Answer Date Omid rded National Score (1-100), lower number is lower ri sk Not on file 03/06/2020 State Score (1-10), lower number is lower risk N ot on file 03/06/2020 Data from: https://www.neighborhoodatlas.medicine.[facility].edu/. Last address used for calculation Not on [...] on filedocumented in this encounter Care Teams Document Preparer Microfilming Relationship Specialty Start Date End Date Natalia Aguillon, PROJECT MANAGEMENT ANALYST.PRUNER [address] [place] [address] PCP - General Family Medicine 11/23/19 Huan Barragan [address] [place] [address] Referring Orthopedics 03/31/24 Huan Barragan [address] [place] [address] Referring Orthopedics 04/03/24 documented as of this encounter
--- OUTSIDE RECORDS SUMMARY | 2024-11-24 15:56 | XMS_ITS | Encounter Summary ---
Author Organization [facility] Address [address] [place] [address] Care Team Providers Care Certified Personal Chef Name Role Phone Sarah Viera Primary Care Provider Natalia Aguillon APRN.[facility] Primary Care Provider Huan Barragan Unavailable Huan Barragan Unavailable Source Comments In the event this information is protected by the Federal Confidentiality of Alcohol and Drug AbusePatient Records regulations: The Federal rules restrict any use of the information to criminally investigate or prosecute any alcohol or drug abuse patient.[facility] Encounter Details Date Type Department Care Team (Late st Contact Info) Description 10/29/2016 Abstract Neurology [address] [place], [place] [phone] [facility] [address] [id number] Social History Tobacco Use Types Packs/Day Years [...] on filedocumented in this encounter Care Teams Certified Personal Chef Relationship Specialty Start Date End Date Sarah Viera DO [address] [place] [address] PCP - General Family Medicine 08/14/16 11/22/19 Natalia Aguillon APRN.CNP [address] [place] [address] PCP - General Family Medicine 11/23/19 Huan Barragan [address] [place] [address] Referring Orthopedics 03/31/24 Huan Barragan [address] [facility] [place] [address] Referring Orthopedics 04/03/24 documented as of this encounter
--- NOTE | 2024-11-24 16:11 | CA_ITS ---
Patient Name: NEHAL BAIG MR#: [id number] : 1970 Exam Date: 11/24/2024 Ordering Doctor: DR KENDALL SANDOVAL M.D. ECHOCARDIOGRAM REPORT PROCEDURE: CA ECHO DOPPLER COMPLETE INDICATIONS: Aortic valve stenosis COMPARISON: None. DESCRIPTION: COMPLETE ECHOCARDIOGRAM Real-time transthoracic echocardiography with 2D, M-mode, spectral and color flow Doppler performed. QUALITY: Technical quality was limited. LEFT VENTRICLE: Normal chamber size. Mildly thickened proximal septal wall. Global left ventricular systolic function is normal. No wall motion abnormalities. Calculated left ventricular ejection fraction is 68%. LV EF: 68% DIASTOLIC: Normal diastolic function ATRIAL SEPTUM: Visually appears intact LEFT ATRIUM: Normal chamber size. RIGHT ATRIUM: Moderate dilatation. RIGHT VENTRICLE: Normal chamber size. Normal right ventricular systolic function. TRICUSPID VALVE: Grossly normal. No stenosis with trivial regurgitation. Unable to evaluate pulmonary arterial pressure due to the lack of adequate tricuspid regurgitation signal MITRAL VALVE: Normal mobility and thickness. No evidence of mitral valve stenosis. There is no mitral annular calcification. Trivial mitral regurgitation. AORTIC VALVE: Mechanical valve with normal flow. DVI 0.44, AVA2.3cm2, Vmax 1.8m/s, peak/mean gradients 13/7.5mmHg.No aortic regurgitation. AORTIC ROOT: Normal diameter and appearance. Measuring 3.5cm. The ascending aorta measures 3.7cm PULMONIC VALVE: Normal thickness and mobility. No stenosis. No regurgitation. PERICARDIUM: No evidence of pericardial effusion. IVC: Collapes with inspirations. Normal size. PLEURA: CONCLUSION: Normal left ventricle systolic function without wall motion abnormalities, ejection fraction 68% Mild thickening of the proximal septal wall Mechanical aortic valve with normal Doppler flow, mean pressure gradient 7.5 mmHg, no regurgitation No other significant valvular abnormalities Normal right ventricular size and systolic function Adult Echocardiography Procedure Report Left Ventricle LVEDD (3.7 - 5.6 cm): 5.66 cm LVESD (2.2 - 4.0 cm): 4.30 cm LVIVS thickness (0.6 - 1.2 cm): 1.18 cm LVPW thickness (0.5 - 1.0 cm): 0.84 cm e': 0.14 m/s E - e': 6.42 LVOT Max Gradient: 2.50 mm[Hg] LVOT Area (cm2): 0.79 m/s Peak Velocity (LVOT): 0.79 m/s Mean Velocity (LVOT): 0.54 m/s LVOT Diameter 2.42 cm Left Ventricular Ejection Fraction: 67.66 % Left Atrium LA Volume Index (2D A2C): 22.05 ml/m2 Left Atrium Systolic Dimension: 5.07 cm Mitral Valve MV E to A Ratio: 1.92 MV Max Gradient: MV Mean Gradient: Mitral Valve A-Wave Peak Velocity: 0.47 m/s Mitral Valve E-Wave Peak Velocity: 0.90 m/s Cardiovascular Orifice Area: Right Ventricle RV Internal Diastolic Dimension: 4.09 cm Aorta AO Root Diam: 3.51 cm Ascending Ao Diam: 3.68 cm Aortic Valve AoV Area (Peak Derik): 2.04 cm2, 2.04 cm2 AoV Area (VTI): 2.30 cm2, 2.30 cm2 Deceleration Breathitt: Pressure Half-Time: Peak Velocity(Antegrade Flow): 1.78 m/s Peak Gradient(Antegrade Flow): 12.70 mm[Hg] Mean Velocity(Antegrade Flow): 1.29 m/s Mean Gradient(Antegrade Flow): 7.47 mm[Hg] Velocity Time Integral: 32.67 cm Tricuspid Valve Peak Velocity (Regurgitant Flow): 1.73 m/s Peak Velocity: Pulmonic Valve Mean Gradient: 1.02 mm[Hg] Mean Velocity: 0.47 m/s Peak Velocity: 0.69 m/s, 0.82 m/s Peak Gradient: 1.89 mm[Hg], 2.71 mm[Hg] Right Atrium Right Atrium Systolic Pressure: 79.76 ml, 79.76 ml Dictated by: Colten Ryan MD on 11/27/2024 at 15:52 Approved by: Colten Ryan MD on 11/27/2024 at 16:00
--- OUTSIDE RECORDS SUMMARY | 2024-11-24 17:16 | XMS_ITS | CCD ---
Author Organization [facility] Care Team Providers Care Holistic Nutritionist Name Role Phone Pal LOO - [facility] Primary Care Provide r PAL SALOME Primary Care Unavailable JUANITA CARMONA Consulting Unavailable JUANITA CARMONA Attending Unavailable JUANITA CARMONA Admitting Unavailable Pal POWER WASHER.[facility] Primary Care Provider [facility] Primary Care Physician UnavailNicolasa Perry Unavailable Unavailable [facility] Primary Care Physician [phone] Pal POWER WASHER.[facility] Primary Care Provider Pal POWER WASHER.[facility] Primary Care Provider Pal POWER WASHER[facility] Primary Care Provider JAVIER, DR KINGSLEY Ro Consulting Unavailable RAKAN, DR ARROYO Attending Unavailable RAKAN, DR ARROYO Admitting Unavailable TOSHA, DR JAYY Marte Consulting Unavailable RAKAN, DR ARROYO Consulting Unavailable [facility] Referring Unavailable [facility] Primary Care Unavailable Kelly Yi Unavailable HAIDER Aguillon Primary Care Provider HAIDER Yi Attending Provider HAIDER Quezada Attending Provider HAIDER Guerrero Primary Care Provider [phone] Siri Quezada Unavailable Vonnie Guerrero Primary Care Physician [phone] Kandis Amado Unavailable HAIDER Aguillon Primary Care Provider HAIDER Yi Attending Provider [phone] HAIDER Quezada Attending Provider HAIDER Guerrero Primary Care Provider [phone] DO Huan Cowan Attending Provider [phone] Katya Harrington Unavailable Unavailable Vonnie Guerrero Attending Unavailable Brown, Huan A Admitting Unavailable Brown, Huan A Attending Unavailable Brown, Huan A Admitting Unavailable Brown, Huan A Attending Unavailable Brown, Huan A Admitting Unavailable Brown, Huan A Attending Unavailable Vonnie Guerrero Attending Unavailable Shehan POWER WASHER.[facility] Primary Care Provider Chandrakant Bernal MD Primary Care Provider Ton Connolly MD Attending Provider [phone] Chandrakant Bernal MD Primary Care Provider Chandrakant Bernal MD Referring Provider [phone] Huan Cowan Unavailable Huan Cowan Unavailable Chandrakant Bernal Referring Unavailable Asaad, Imad Admitting Unavailable Asaad, Imad Attending Unavailable Chandrakant Bernal Primary Care Unavailable Asaad, Imad Admitting Unavailable Asaad, Imad Attending Unavailable Chandrakant Bernal Primary Care Unavailable ENTTEE, SANTO Referring Unavailable [facility] Unavailable ENTNORMANARI, SANTO Attending Unavailable HUAN COWAN Referring Unavailable [facility] Unavailable ENTEZARI, SANTO Referring Unavailable [facility] Unavailable Unavailable Primary Care Provider UnavailKAYLYNN Blankenship Attending Unavailable KAYLYNN GARSIA Referring Unavailable KAYLYNN GARSIA Referring Unavailable Gitricia SEXTON, Andgorge Reid Attending Unavailable Jean SEXTON, Andrius Reid Attending Unavailable Giventuraitis , Andrius Franklin Attending Unavailable Gitricia SEXTON, Andrius Franklin Attending Unavailable BROWN, HUAN A Attending Unavailable BROWN, HUAN A Attending Unavailable BROWN, HUAN A Referring Unavailable BROWN, HUAN A Attending Unavailable BROWN, HUAN A Referring Unavailable BROWN, HUAN A Attending Unavailable CHANDRAKANT BERNAL Primary Care Unavailable POLY KAUR Attending Unavailable Rakan Joel Estrada Admitting Unavailable Chandrakant Bernal MD Primary Care Provider [phone] Venancio Russell MD Attending Provider Ovtrent MANAGER REIMBURSEMENT-C, Ninfa M Referring Provider OVITT, NINFA Referring Unavailable ELTAHAWY, EHAB Referring Unavailable OVITT, NINFA Referring Unavailable ELTAHAWY, EHAB Attending Unavailable ELTAHAWY, EHAB Attending Unavailable SANAULLAH, MAURI Referring Unavailable AGUSTIN, MICHAEL J Referring Unavailable NERIS, LAUREEN Referring Unavailable CARMEN, ELDER Referring Unavailable SANAULLAH, MAURI Referring Unavailable KATBRAXTON BARRIOS Referring Unavailable HORZAK, SHARRON Admitting Unavailable JOSE J GRANDE Attending Unavailable OVITT, NINFA Attending Unavailable OVITT, NINFA Attending Unavailable RADHA NAYLOR Attending Unavailable Allergies Allergy Classification Reported Allergen(s) Allergy Type Date of Onset Reaction(s) Facility (9 sources) atorvastatin; Translations: [ATORVASTATIN] Drug Allergy 4 [facility] (1 source) atorvastatin Drug Allergy 4 Other: See [facility] (1 source) [id number] Reductase Inhibitor Drug allergy (disorder) 5 [facility] (1 source) ALLERGIES NOT ON FILE; Translations: [ALLERGIES NOT ON FILE] Propensity to adverse reactions (disorder) [facility] (2 sources) HMG-CoA reductase inhibitor Propensity to adverse reactions 5 [facility] (1 source) No Known Medication Allergies; Translations: [No Known Medication Allergies] Propensity to adverse reactions to drug (disorder) [facility] Repository Medications Current Medications Medication Drug Class(es) Dates Sig (Normalized) Sig (Original) acetaminophen 500 mg oral tablet (14 sources) Start: 11-09-2024 take 1 tablet by mouth four times daily as needed Acetaminophen (Tylenol Extra Strength) 500 mg tablet Active 500 MG PO Four times daily as needed November 09, 2024 12:00am Complies with drug therapy Start: 08-02-2020 End: 08-07-2020 take 2 tablets [...] ylenol) 325 MG tablet every 4 (four) hours Active take 2 tablets by mo uth every twelve hours Acetaminophen 500 MG 2 tablet Orally bid Active take 1 tablet by tori th every six hours as needed Acetaminophen 500 MG 1 tablet as needed Orally every 6 hrs Active acetaminophen 325 mg / HYDROcodone bitartrate 7.5 mg oral tablet (12 sources) Opioid Agonist Start: 06-11-2023 Hydrocodone-Ac etaminophen 7.5-325 mg tablet Active 1 TAB PO As Directed as needed for pain June 11, 2023 12:00am Complies with drug therapy End: 07-14-2024 take 1 tablet by mouth every four hours as needed HYDROcodone-acetaminophen (Pearblossom) 7.5-32 5 MG tablet 1 tablet every 4 (four) hours if needed 07/14/2024 Discontinued (Therapy completed) take 1 tablet by tori th every twelve hours as needed HYDROcodone-Acetaminophen (NORCO) 7.5-32 5 mg per tablet Take 1 tablet by mouth two times a day as needed. Active Air [employer] 10VAuto CPAP machine supplies [...] aspirin 81 mg delayed release oral tablet (17 sources) Platelet Aggregation Inhibitor, Nonsteroidal Anti-inflammatory Drug Start: 9 take 1 tablet by mouth once daily Aspirin 81 mg tablet,delayed release (DR/EC) Active 81 MG PO Daily March 02, 2024 1:00am FreeTextSi tablet Orally Once a day; Note: Source Status: Taking; Provider: Damien Horner ( ) Complies with drug therapy Start: 03-01-2019 take 1 tablet by tori th once daily aspirin 81 mg Oral EC Tab 81 mg = 1 tab(s), Oral, Daily, Refills(s) 0, Prophylaxis Start Date: 03/01/19 Status: Ordered bacitracin zinc 0.5 unt/mg t opical ointment (1 source) Start: 08-03-2020 bacitracin oin tment Start: 08-03-2020 bacitracin oin tment baclofen 20 mg oral tablet (12 sources) gamma-Aminobutyric Acid-ergic Agonist Start: 07-11-2023 baclofen (Lioresal) 20 MG tablet Take 20 mg by mouth in the morning and 20 mg at noon and 20 mg in the evening. 07/11/2023 Active Start: 06-11-2023 Baclofen 10 mg tablet Active 10 MG PO As Directed June 11, 2023 12:00am Complies with drug therapy bisacodyl 5 mg delayed release oral tablet (1 source) Stimulant Laxative Start: 11-09-2024 take 1 tablet by mouth once daily at bedtime Bisacodyl 5 mg tablet,delayed release (DR/EC) Active 5 MG PO Daily at bedtime November 09, 2024 12:00am Complies with drug therapy calcium chloride 0.0014 meq/ml / potassium chloride [...] day(s), # 9 cap(s), Refills(s) 0, Pharmacy: [facility] #[id number], 185.5, cm, 08/08/21 12:06:00 EDT, Height/Length Dosing, 179.2, kg, 08/08/21 12:06:00 EDT, Weight Dosing Start Date: 08/23/21 Stop Date: 08/26/21 Status: Ordered cholecalciferol 0.05 mg oral tablet (13 sources) Vitamin D Start: 03-02-2024 take 1 tablet by mouth once daily Cholecalciferol (Vitamin D3) 50 mcg (2,000 unit) tablet Active 50 MCG PO Daily March 02, 2024 1:00am FreeTextSi tablet Orally Once a day; Note: Source Status: Taking; Provider: Damien Horner ( ) Complies with drug therapy cholecalciferol (Vitamin D-3) 50 MCG (2000 UT) capsule 1 capsule Active Cholecalciferol, Vitamin D3, 50 mcg (2,000 unit) cap 1 capsule. Active take 1 tablet by tori th every twenty-four hours Vitamin D3 50 MCG (2000 UT) 1 tablet Ora lly Once a day Active colchicine 0.6 mg oral tablet (1 source) Start: 11-09-2024 take 1 tablet by mouth once daily Colchicine 0.6 mg tablet Active 0.6 MG PO Daily November 09, 2024 12:00am Complies with drug therapy dapagliflozin 10 mg oral tablet (9 sources) Sodium-Glucose Cotransporter 2 Inhibitor Start: 09-26-2023 End: 11-10-2024 take 1 tablet by mouth once daily Dapagliflozin Propanediol (Farxiga) 10 mg tablet Active 10 MG PO Daily November 09, 2024 12:00am Complies with drug therapy docusate sodium 100 mg oral capsule (2 sources) Start: 08-23-2021 take 1 capsule by mouth twice daily as needed for constipation Colace 100 mg Cap 100 mg = 1 cap(s), Oral, BID, PRN for constipation, # 20 cap(s), Refills(s) 0, Pharmacy: [facility] #[id number], 185.5, cm, 08/08/21 12:06:00 EDT, Height/Length [...] Supply Start Date: 01/09/23 Status: Ordered furosemide 20 mg oral tablet (10 sources) Loop Diuretic Start: 11-09-2024 take 1 tablet by mouth once daily Furosemide 20 mg tablet Active 20 MG PO Daily November 09, 2024 12:00am Complies with drug therapy Start: 07-25-2023 take 1 tablet by tori th every other day furosemide (Lasix) 40 MG tablet Take 40 mg by mouth every other day 07/25/2023 Active take 1 tablet by tori th once daily in the morning furosemide (LASIX) 40 mg tablet Take 40 mg by mouth every morning. Active ibuprofen 600 mg oral tablet (15 sources) Nonsteroidal Anti-inflammatory Drug Start: 08-23-2021 take 1 tablet by mouth every eight hours as needed for pain ibuprofen 600 mg Tab 600 mg = 1 tab(s), Oral, q8hr, PRN as needed for pain, with food or milk, # 60 tab(s), Refills(s) 0, Pharmacy: [facility] #[id number], 185.5, cm, 08/08/21 12:06:00 EDT, Height/Length Dosing, 179.2, kg, 08/08/21 12:06:00 EDT, Weight Dosing Start Date: 08/23/21 Status: Ordered Start: 08-02-2020 End: 08-07-2020 take 1 tablet by mouth four times daily as needed for pain ibuprofen (ADVIL;MOTRIN) 600 MG tablet Take 1 tablet by mouth 4 times daily as needed for Pain 20 tablet 0 08/02/2020 08/07/2020 Active End: 07-14-2024 ibuprofen 200 MG tablet Take by mouth 07/14/2024 Discontinued (Therapy completed) take 1 tablet by tori th every twelve hours Ibuprofen 800 MG 1 tablet with food or milk Orally bid Active Ibuprofen 200 MG 1/2 as needed Orally every 6 hrs Not-Taking/PRN Magnesium (2 sources) take 1 tablet by mouth once daily Magnesium 500 MG 1 tablet with a meal Orally Once a day Active magnesium oxide 500 mg oral tablet (2 sources) Start: 03-02-2024 take 1 tablet by mouth once daily Magnesium Oxide 500 mg magnesium tablet Active 500 MG PO Daily March 02, 2024 1:00am FreeTextSi tablet with a meal Orally Once a day; Note: Source Status: Taking; Provider: Damien Horner ( ) Complies with drug therapy 24 hr metoprolol succinate 25 mg extended release oral tablet (11 sources) beta-Adrenergic Fredrick Start: 03-02-2024 take 1 tablet by mouth once daily Metoprolol Succinate 25 mg tablet extended release 24 hr Active 25 MG PO Daily March 02, 2024 1:00am Complies with drug therapy Start: 07-18-2023 End: 02-02-2025 take 1 tablet by mouth every twenty-four hours at bedtime metoprolol succinate XL (Toprol-XL) 25 MG 24 hr tablet Take 25 mg by mouth at bedtime 07/18/2023 Active Multiple Vitamin (Multi-Vitamin) tablet (7 sources) take 1 tablet by mouth in the morning Multiple Vitamin (Multi-Vitamin) tablet Take 1 tablet by mouth in the morning. Active omeprazole 20 mg delayed release oral tablet (20 sources) Proton Pump Inhibitor Start: 03-02-20 24 take 1 tablet by mouth once daily Omeprazole Magnesium (Prilosec Otc) 20 mg tablet,delayed release (DR/EC) Active 20 MG PO Daily March 02, 2024 1:00am Complies with drug therapy Start: 03-23-2017 take 1 capsule by [facility] once daily Prilosec 20 mg Cap - DR 20 mg, Oral, Daily, Refills(s) 0 Start Date: 03/23/17 Status: Ordered Start: 03-23-2017 take 1 capsule by [facility] once daily Prilosec 20 mg Cap - DR 20 mg, Oral, Daily, Refills(s) 0 Start Date: 03/23/17 Status: Ordered Start: 2016 omeprazole (Pr iLOSEC) [address] capsule 07/18/2023 Active take 1 tablet by [facility] once daily PriLOSEC OTC 20 MG 1 tablet 30 minutes before morning meal Orally Once a day Active End: 07-25-2021 Omeprazole Magnesium (PRILOS EC OTC) 20 mg tablet 2 tablet 0 07/25/2021 Discontinued (Discontinued by Patient) Comment on above: Take 1 capsule by [facility] once daily. 2 tablet Omeprazole Magnesium (Prilosec Otc) 20 mg tablet,delayed release (DR/EC) (1 source) Start: take 1 tablet by mouth once [...] Starting Sat08/01/20 at 2358 polyethylene glycol 3350 11638 mg powder for oral solution (1 source) Osmotic Laxative Start: 08-01-2020 17 g, Oral, DAILY PRN, Constipation, Starting Sat08/01/20 at 2358 First line therapy for constipation microencapsulated potassium chloride 20 meq extended release oral tablet (7 sources) Start: 07-05-2023 potassium chloride CR (Klor-Con M20) 20 MEQ ER tablet Take 20 mEq by mouth in the morning. 07/05/2023 Active rosuvastatin calcium 40 mg oral tablet (7 sources) HMG-CoA Reductase Inhibitor Start: 08-20-2022 take 1 tablet by mouth once daily rosuvastatin (CRESTOR) 40 mg tablet Take 1 tablet by mouth once daily. 90 tablet 1 08/20/2022 Active Comment on above: Take 1 tablet by tori once daily. 125 ml sodium chloride 9 mg/ml prefilled [...] 0, Prophylaxis Start Date: 08/08/21 Status: Ordered vitamin b12 1 mg oral capsule (3 sources) Vitamin B12 Start: 11-09-2024 take 1 capsule by mouth once daily Cyanocobalamin (Vitamin B-12) 1,000 mcg capsule Active 1000 MCG PO Daily November 09, 2024 12:00am Complies with drug therapy take 1 tablet by mouth in the mo rning cyanocobalamin (Vitamin B-12) 1000 MCG tablet Take 1,000 mcg by mouth in the morning. Active Vitamin D 1000 intl units (25 mcg) [...] Ordered warfarin sodium 1 mg oral tablet (12 sources) Vitamin K Antagonist Start: 11-09-2024 take 5 tablets by mouth once daily Warfarin (Jantoven) 1 mg tablet Active 5 MG PO Daily November 09, 2024 8:37am Complies with drug therapy Start: 03-02-2024 End: 11-09-2024 take 1 tablet by mouth once daily Warfarin (Jantoven) 1 mg tablet Discontinued 1 MG PO Daily March 02, 2024 1:00am November 09, 2024 8:47am Start: 07-05-2023 warfarin (Coum saritha) 5 MG tablet 07/05/2023 Active Zinc (1 source) take 1 [...] tab(s), Refill(s) 0, 1-2 tab(s) Oral q4hr, [facility] #[id number], 185.5, cm, 08/08/21 12:06:00 EDT, Height/Length Dosing, 179.2, kg, 08/08/21 12:06:00 EDT, Weight Dosing Start Date: 08/23/21 Status: Ordered amiodarone hydrochloride 200 mg oral tablet (7 sources) Antiarrhythmic End: 07-14-2024 amiodarone (Pacerone) 200 MG tablet 1 (one) time each day at the same time. 07/14/2024 Discontinued (Therapy completed) atorvastatin 80 mg oral tablet (20 sources) HMG-CoA Reductase Inhibitor Start: 05-21-2022 take 1 tablet by mouth once daily at bedtime atorvastatin (LIPITOR) 80 mg tablet Indications: Mixed hyperlipidemia Take 1 tablet by mouth daily at bedtime. 90 tablet 1 05/21/2022 Active Start: 02-15-2022 End: 07-14-2024 take 1 tablet by mouth at bedtime atorvastatin (Lipitor) 40 MG tablet Take 40 mg by mouth at bedtime. 02/15/2022 07/14/2024 Discontinued (Therapy completed) Start: 03-01-2019 End: 02-15-2022 take 1 tablet [...] autopap titration study. Please fax results to [phone]. DX: JACOBY G47.33 1 Each 0 11/08/2016 09/13/2020 Discontinued Comment on above: Please perform autop ap titration study. Please fax results to [phone]. DX: JACOBY G47.33 doxepin hydrochloride 10 mg oral capsule (1 source) Tricyclic Antidepressant Start: 11-06-19 End: 04-18-19 take 2 capsules by mouth once daily doxepin capsule 10 mg Take 20 mg by mouth once daily. 0 11/06/2019 04/18/2020 Discontinued (Discontinued by Patient) Comment on above: Take 20 mg by mouth once daily. ezetimibe 10 mg oral tablet (3 sources) Dietary Cholesterol Absorption Inhibitor Start: 11-10-19 End: 11-10-19 take 1 tablet by mouth once daily Ezetimibe 10 mg tablet Discontinued 10 MG PO Daily November 09, 2024 12:00am November 09, 2024 4:21pm Start: 02-03-2024 take 1 tablet by tori th in the morning ezetimibe (Zetia) 10 MG tablet Take 10 mg by mouth in the morning. 02/03/2024 Active 2 ml fentaNYL 0.05 mg/ml injection (1 [...] as in structed twice daily. via spacer gabapentin 400 mg oral capsule (12 sources) Anti-epileptic Agent Start: 03-02-2024 End: 11-09-2024 take 1 capsule by mouth twice daily Gabapentin 400 mg capsule Discontinued 400 MG PO Twice daily March 02, 2024 1:00am November 09, 2024 4:22pm Start: 08-02-2020 take 300 mg by mouth three times daily 300 mg, Oral, 3 TIMES DAILY, First dose on Sat08/02/20 at 0900 End: 07-14-2024 gabapentin (Neurontin) 800 M G tablet Take 600 mg by mouth in the morning and 600 mg in the evening. 07/14/2024 Discontinued (Therapy completed) iopamidol (ISOVUE-370) 76 % injection 75 mL (1 source) Start: 08-01-2020 End: 08-01-2020 iopamidol (ISOVUE-370) 76 % injection 75 mL lidocaine 0.05 mg/mg medicated patch (4 sources) Antiarrhythmic, Amide Local Anesthetic Start: 06-11-2023 End: 03-02-2024 Lidocaine 5 % adhesive patch,medicated Discontinued PATCH TOPICAL June 11, 2023 12:00am March 02, 2024 10:49am Start: 06-11-2023 Lidocaine Acti ve PATCH TOPICAL June 11, 2023 12:00am Start: 08-01-2020 End: 08-02-2020 lidocaine 4 % external patch 1 patch lisinopril 10 mg oral tablet (20 sources) Angiotensin Converting Enzyme Inhibitor Start: 01-05-2021 End: 07-14-2024 take 1 tablet by mouth in the morning lisinopril 10 MG tablet Take 1 tablet by mouth in the morning. 2022 07/14/2024 Discontinued (Therapy completed) Start: 03-01-2019 End: 04-18-2020 take 1 tablet by mouth once daily lisinopril (ZESTRIL, PRINIVIL) 5 mg tablet Take 5 mg by mouth once daily. 0 11/06/2019 04/18/2020 Discontinued Comment on above: Take 1 tablet by tori th once daily. TAKE 1 TABLET BY TORI TH EVERY DAY Take 5 mg by mouth o nce daily. 24 hr metFORMIN hydrochloride 500 mg extended [...] on above: Take 2 tablets by mo alh daily with dinner. methocarbamol 750 mg oral [...] 10 mL injection (DEFINITY) polyethylene glycol 3350 910795 mg / potassium chloride 2970 mg / sodium bicarbonate 6740 mg / sodium chloride 5860 mg / sodium sulfate 35118 mg powder for oral solution (16 sources) Osmotic Laxative Start: 03-17-2024 End: 11-09-2024 Peg 3350-Electrolytes (Golytely) 236-22.74-6.74 -5.86 gram recon soln Discontinued 240 ML PO Q10M 4000 1 March 17, 2024 1:00am November 09, 2024 8:37am until fecal effluent is clear Start: 07-25-2021 End: 09-22-2021 peg 3350-Electrolytes (GOLYT GARY) 236-22.74-6.74 -5.86 gram suspension Indications: Screening for colon cancer Refer to printed prep instructions from your provider. 4000 mL 0 07/25/2021 09/22/2021 Discontinued Comment on above: Refer to printed pre p instructions from your provider. predniSONE 10 mg oral tablet (7 sources) Start: 06-11-2023 End: 03-02-2024 Prednisone 10 mg tablet Discontinued 10 MG PO June 11, 2023 12:00am March 02, 2024 10:49am Start: 12-16-2022 take 1 tablet by tori th every twelve hours predniSONE 20 MG 1 tablet Orally bid for 5 day(s) Nov, Not-Taking/PRN Sod Picosulf-Mag Ox-Citric A c (2 sources) Start: 02-11-2024 End: 11-09-2024 Sod Picosulf-Mag Ox-Citric A c (Clenpiq) 10 mg-3.5 gram- 12 gram/175 mL solution Discontinued 175 ML PO Daily 350 1 February 11, 2024 1:00am November 09, 2024 8:37am take first dose at 3:00 PM followed by four 8oz glasses of liquid take second dose at 9:00 PM followed by 3 8oz glasses of liquid Start: 02-11-2024 Sod Picosulf-M ag Ox-Citric Ac (Clenpiq) 10 mg-3.5 gram- 12 gram/175 mL solution Active 175 ML PO Daily 350 1 February 11, 2024 12:00am take first dose at 3:00 PM followed by four 8oz glasses of liquid take second dose at 9:00 PM followed by 3 8oz glasses of liquid spironolactone 25 mg oral tablet (10 sources) Aldosterone Antagonist Start: 03-02-2024 End: 11-09-2024 take 1 tablet by mouth twice daily Spironolactone 25 mg tablet Discontinued 25 MG PO Twice daily March 02, 2024 1:00am November 09, 2024 4:22pm spironolactone ( Aldactone) 25 MG tablet 25 mg 1 (one) time Active traMADol hydrochloride 50 mg oral tablet (3 sources) Opioid Agonist Start: 06-11-2023 End: 03-02-2024 Tramadol 50 mg tablet Discontinued 50 MG PO June 11, 2023 12:00am March 02, 2024 10:50am traZODone hydrochloride 100 mg oral tablet (4 sources) Serotonin Reuptake Inhibitor take 1 tablet by mouth every twenty-four hours traZODone HCl 100 MG 1 tablet at bedtime Orally Once a day for 30 day(s) Not-Taking/PRN valsartan 40 mg oral tablet (9 sources) Angiotensin 2 Receptor Fredrick Start: 11-09-2024 End: 11-09-2024 take 1 tablet by mouth twice daily Valsartan 40 mg tablet Discontinued 40 MG PO Twice daily November 09, 2024 12:00am November 09, 2024 4:22pm Start: 09-07-2023 valsartan (EDWIGE VAN) 40 mg tablet Take 40 mg by mouth. 09/07/2023 Active Problems Active Problems Problem Classification Problem Date Documented Da te Episodic/Chronic Asthma (1 source) Uncomplicated mild persistent asthma; Translations: [Mild persistent asthma, uncomplicated] Chronic Calculus of urinary tract (1 source) Personal history of urinary calculi Episodic Complication of device; implant or graft (4 sources) Prosthetic joint infection; Translations: [Infection and inflammatory reaction due to unspecified internal joint prosthesis, initial encounter] Onset: 04-20-2024 04-20-2024 Episodic Congestive heart failure; nonhypertensive (2 sources) Chronic systolic (congestive) heart failure; Translations: [Chronic systolic (congestive) heart failure] Onset: 07-08-2024 Chronic Diabetes mellitus without complication (5 sources) Diabetes mellitus 08-23-2021 Chronic Diabetes mellitus without complication (20 sources) Impaired fasting glycemia; Translations: [Impaired fasting glucose] Onset: 08-15-2021 Episodic Disorders of lipid metabolism (20 sources) [...] Episodic Heart valve disorders (6 sources) Nonrheumatic aortic valve disorder, unspecified; Translations: [Nonrheumatic mitral (valve) insufficiency] Onset: 06-21-2023 Chronic Miscellaneous mental [...] (1 source) Heart disease, unspecified Chronic Other bone disease and musculoskeletal deformities (2 sources) Other specified disorders of bone, other site; Translations: [Other specified disorders of bone, other site] Onset: 09-25-2024 Episodic Other connective tissue disease (11 sources) History of left shoulder arthroplasty; Translations: [Presence of left artificial shoulder joint] Onset: 02-15-2022 02-15-2022 Chronic Other connective tissue disease (2 sources) Presence of left artificial shoulder joint; Translations: [Presence of left artificial shoulder joint] Onset: 05-12-2024 Chronic Other connective tissue disease (2 sources) History of total arthroplasty of left shoulder; Translations: [Presence of left artificial shoulder joint] 07-15-2024 Chronic Other connective tissue disease (1 source) Achilles tendinitis, left leg Episodic Other connective tissue disease (1 source) Calcaneal spur, left foot Episodic Other connective tissue disease (3 sources) Nontraumatic rotator cuff tear; Translations: [Unspecified rotator cuff tear or rupture of left shoulder, not specified as traumatic] Onset: 04-20-2024 04-20-2024 Episodic Other connective tissue disease (1 source) Unspecified rotator cuff tear or rupture of left shoulder, not specified as traumatic; Translations: [Nontraumatic tear of left rotator cuff, unspecified tear extent] Onset: 04-20-2024 Episodic Other connective tissue disease (2 sources) Residual foreign body in soft tissue; Translations: [Residual foreign body in soft tissue] Onset: 09-25-2024 Episodic Other diseases of veins and lymphatics [...] fecal abnormalities; Translations: [Other fecal abnormalities] Onset: 03-13-2024 Episodic Other injuries and conditions due to external causes (1 source) Personal history of other (healed) physical injury and trauma Episodic Other liver diseases (20 sources) Steatosis of liver; Translations: [Fatty (change of) liver, not elsewhere classified] Onset: 08-15-2021 Chronic Other liver diseases (2 [...] 02-15-2022 02-15-2022 Chronic Other nervous system disorders (5 sources) Chronic pain; Translations: [Other chronic pain] 06-11-2023 Chronic Other nervous system disorders (4 sources) Other chronic pain; Translations: [Other chronic pain] Onset: 10-21-2024 Chronic Other nervous system disorders (2 sources) Syringomyelia and syringobulbia; Translations: [Syringomyelia and syringobulbia] Onset: 11-12-2024 Chronic Other nervous system disorders (1 source) Paresthesia; Translations: [Paresthesia of skin] 01-07-2020 Episodic Other non-traumatic joint disorders (6 sources) Shoulder pain 09-18-2013 Episodic Other non-traumatic joint disorders (11 sources) Pain in left shoulder; Translations: [Pain in joint, shoulder region] Onset: 04-20-2024 12-17-2019 Episodic Other non-traumatic joint disorders (1 [...] screening for malignant neoplasm of colon] Onset: 04-17-2024 Episodic Residual codes; unclassified (20 sources) Obstructive sleep apnea syndrome; Translations: [Obstructive sleep apnea (adult) (pediatric)] Onset: 03-10-2021 03-10-2021 Chronic Residual codes; unclassified (1 source) Obstructive sleep apnea (adult) (pediatric) Chronic Residual codes; unclassified (6 sources) Sleep disorder 08-26-2012 Episodic Spondylosis; intervertebral disc disorders; other back problems (13 sources) Disorder of lumbar disc; Translations: [Unspecified thoracic, thoracolumbar and lumbosacral intervertebral disc disorder] Onset: 11-12-2024 06-11-2023 Chronic Spondylosis; intervertebral disc disorders; other back problems (11 sources) Radiculopathy, lumbar region; Translations: [Spinal stenosis, cervical region] Onset: 07-07-2024 Episodic Unclassified (6 sources) Patient encounter status 01-09-2023 Unclassified (4 sources) Left shoulder pain, unspecified [...] intrathoracic organs, initial encounter] Onset: 08-01-2020 Episodic Nonspecific chest pain (4 sources) Other chest pain; Translations: [Chest pain, unspecified] Onset: 06-25-2024 Episodic Other and unspecified benign neoplasm (11 sources) History of polyp of colon; Translations: [Personal history of colonic polyps] Onset: 02-15-2022 02-15-2022 Episodic Other lower respiratory disease (20 sources) [...] in unspecified joint] Onset: 11-26-2019 11-26-2019 Episodic Residual codes; unclassified (20 sources) Postoperative state; Translations: [Other specified postprocedural states] Onset: 02-08-2021 02-08-2021 Episodic Unclassified (1 source) Low back pain, unspecified M54.50 Results Test Name Value Interpretation Reference Range Facility Orders Onlyon 11-17-2024 Orders Only [id number] Mya Baig 1970 M Date Provider Department Center 11/17/2024 [id number] CARUSO [facility] Family History Problem Relation Age of Onset Lung cancer Mother Cancer Mother Epididymitis Father Family Status - Relation Status Age at Mother Father Normal [facility] Refillon 11-14-2024 Refill [id number] Mya Baig 1970 M Provider Department Center 11/14/2024 [id number] [facility] History Problem Relation Age of Onset Lung cancer Mother Cancer Mother Epididymitis Father Family Status - Relation Status Age at Mother Father Reason for Visit and Comments: Med Refill [[id number]] Normal [facility] Follow-Upon 11-12-2024 Follow-Up [id number] Mya Baig 1970 M Provider Department Center 11/12/2024 Annmarie-NINFA ARROYO [facility] SURG Second Fl Family History Problem Relation Age of Onset Lung cancer Mother Cancer Mother Epididymitis Father Family Status - Relation Status Age at Mother Father Level of Service:82172 [place] OFFICE/OUTPATIENT ESTABLISHED MOD MDM 30 MIN Normal [facility] MR THORACIC SPINE WO CONTRAS Ton 11-12-2024 MR THORACIC SPINE WO CONTRAST MR THORACIC SPINE WO CONTRAST: 11/12/2024 PROVIDED [...] process in the visualized thoracic compartment. IMPRESSION: 1. Spinal cord syrinx, 4 mm in [...] 11/13/2024 8:00 AM Electronically signed: Twyla Frost. 7 Invalid Interpretation Code [facility] Follow-Upon 10-21-2024 Follow-Up [id number] Mya Baig 1970 M Date Provider Department Center 10/21/2024 NINFA MARQUEZ [facility] SURG Second Fl Family History Problem Relation Age of Onset Lung cancer Mother Cancer Mother Epididymitis Father Family Status - Relation Status Age at Mother Father Level of Service:88346 [place] OFFICE/OUTPATIENT ESTABLISHED MOD MDM 30 MIN Reason for Visit and Comments: Follow-up [[id number]] [facility] 10-07-2024 36 Called patient back. He voiced that there was some concern and asked to be seen sooner whenever. Patient scheduled sooner. [facility] 3610-05-2024 36 Patient called to re quest a call back from Cori ROA regarding next appt [facility] 36 Pt called back. Pt scheduled. Normal [facility] 36 I see he had his fol low up MRI lumbar. He has a little lesion in his spine, which looks about the same. I would like to see him in clinic sometime to follow up as he will need imaging yearly for a few years, and then poss every 2 years to make sure this stays stable. Does not need to be an urgent appt, just sometime. Thank you. Normal [facility] Documentationon 10-05-2024 Documentation [id number] Mya Baig 1970 M Date Provider Department Center 10/05/2024 [id number], NINFA NEURO SURG None Family History Problem Relation Age of Onset Lung cancer Mother Epididymitis Father Family Status - Relation Status Age at Mother Father Normal [facility] Telephoneon 10-05-2024 Telephone [id number] Mya Baig 1970 M Date Provider Department Center 10/05/2024 [id number], NINFA NEURO SURG None Family History Problem Relation Age of Onset Lung cancer Mother Epididymitis Father Family Status - Relation Status Age at Mother Father Normal [facility] MR LUMBAR SPINE W AND WO CON TRASTon 09-25-2024 MR LUMBAR SPINE W AND WO CONTRAST [...] changes most pronounced at L5-S1. Electronically signed: Rey Alvarado MD. Not Vldtd Invalid Interpretation Code [facility] Comment on above: Order Comment: In on e year, follow up intrathecal lesion at L4-L5 Employee Health Noteon 07-15 Employee Health Note [id number]#1.00[facility] Employee Health Note [id number]#1.00[employer] [facility] Employee Health Note [id number]#1.00[facility] [facility] Employee Health Note [id number]#1.00[facility] Office Visiton 07-08-2024 Follow-up visit [id number] Mya Baig 1970 M Date Provider Department Center 07/08/2024 Sarah-ZINA [facility] Family History Problem Relation Age of Onset Lung cancer Mother Epididymitis Father Family Status - Relation Status Age at Mother Father Level of Service:00849 [place] OFFICE/OUTPATIENT ESTABLISHED MOD MDM 30 MIN Normal [facility] 36on 06-27-2024 36 Post Discharge Call Good evening, I am Sisi Yousif RN a lead nurse from [facility]. I am calling you to follow up on your stay with us and make sure all of your questions have been answered. You will be receiving a survey either electronic or via mail and we always aim to receive 9???s and 10???s. If there is any reason you feel as though you cannot give us these scores please indicate that now. 1. How have you been feeling since being discharged from the hospital? Tired , but doing fine. He stated that he would give us a 20 for his care- from housekeeping to the nurses to the doctors. He said everyone was fantastic and that he is here because we saved his life. 2. Did you understand your discharge instructions when they were given to prior to leaving? Yes Were you given an opportunity to ask questions? Yes 3. While a patient in the hospital, was your call light answered in a timely manner? Yes 4. Do have access to all medications that were prescribed to you at discharge? Yes 5. How would you rate your overall stay on a scale of 0-10, 10 being the best experience you have ever had. 10 6. Do you have any further questions you would like to discuss? No Patient Name Nehal Baig Date 06/27/24 Normal [facility] Telephoneon 06-27-2024 Telephone [id number] Mya Baig 1970 Provider Department Center 06/27/2024 SISI ZENG [facility] Medical C Family History Problem Relation Age of Onset Lung cancer Mother Epididymitis Father Family Status - Relation Status Age at Mother Father Reason for Visit and Comments: post discharge call back [Other] Normal [facility] 30on 06-26-2024 30 The patient is Moder ately Stable - Low risk of patient condition declining or worsening The patient's goals for the shift include comfort, rest The clinical goals for the shift include stable vitals Normal [facility] 30 Treadmill Cardiolite Stress Patient information sheet explained, questions answered and signed. Doctor consulted--NA Treatment/Decision tree utilized- Chest pain, Elevated Troponin, ABN ECG inpt PT tolerated treadmill well, target heart rate achieved. No acute ST or T waves changes noted, baseline inverted T waves continued Admits mid sternal chest pain as per prior to stress test, and + dyspnea that resolved in recovery Pt left stress lab asymptomatic and hemodynamically stable. Full final report from bung driver to follow Laureen Phan [facility] Cardiology Available 7a-3pm via [employer] Chat [phone] Normal [facility] 30 The patient is Moder ately Stable - Low risk of patient condition declining or worsening The patient's goals for the shift include comfort, rest The clinical goals for the shift include stable vitals Problem: Safety - Adult Goal: Free from fall injury Outcome: Progressing Problem: Chronic Conditions and Co-morbidities Goal: Patient's chronic conditions and co-morbidity symptoms are monitored and maintained or improved Outcome: Progressing Normal [facility] CBC WITH AUTO DIFFERENTIALon 06-26-2024 Basophils (Bld) [#/Vol] 0.06 10*3/uL Normal 0.00-0.20 [facility] Comment on above: Performed By: #### L [id number] #### [facility] ([facility]) [address] [place] [address] Basophils/100 WBC (Bld) 0.6 % Normal 0.0-1.0 [facility] Comment on above: Performed By: #### L [id number] #### [facility] ([facility]) [address] [place] [address] Eosinophils (Bld) [#/Vol] 0.11 10*3/uL Normal 0.00-0.50 [facility] Comment on above: Performed By: #### L [id number] #### [facility] ([facility]) [address] [place] [address] Eosinophils/100 WBC (Bld) 1.1 % Normal 0.0-6.0 [facility] Comment on above: Performed By: #### L [id number] #### [facility] ([facility]) [address] [place] [address] Erythrocyte distribution width (RBC) [Ratio] 14.2 % Normal 11.5-15.0 [facility] Comment on above: Performed By: #### L [id number] #### [facility] ([facility]) [address] [place] [address] ERYTHROCYTE MEAN CORPUSCULAR HEMOGLOBIN CONCENTRATION (G/DL) BY AUTOMATED 33.3 g/dL Normal 32.0-35.0 [facility] Comment on above: Performed By: #### L [id number] #### [facility] ([facility]) [address] [place] [address] Hematocrit (Bld) [Volume fraction] 46.6 % Normal 39.0-50.0 [facility] Comment on above: Performed By: #### L [id number] #### [facility] ([facility]) [address] [place] [address] Hemoglobin (Bld) [Mass/Vol] 15.5 g/dL Normal 13.0-17.0 [facility] Comment on above: Performed By: #### L [id number] #### [facility] [address] [place] [address] Immature granulocytes (Bld) [#/Vol] 0.05 10*3/uL Normal 0.00-0.20 [facility] Comment on above: Performed By: #### L [id number] #### [facility] ([facility]) [address] [place] [address] Immature granulocytes/100 WBC (Bld) 0.5 % Normal 0.0-1.0 [facility] Comment on above: Performed By: #### L [id number] #### [facility] ([facility]) [address] [place] [address] Lymphocytes (Bld) [#/Vol] 1.73 10*3/uL Normal 1.20-4.00 [facility] Comment on above: Performed By: #### L [id number] #### [facility] ([facility]) [address] [place] [address] Lymphocytes/100 WBC (Bld) 17.6 % Low 20.0-45.0 [facility] Comment on above: Performed By: #### L [id number] #### [facility] ([facility]) [address] [place] [address] MCH (RBC) [Entitic mass] 27.4 pg Normal 27.0-33.0 [facility] Comment on above: Performed By: #### L [id number] #### [facility] ([facility]) [address] [place] [address] MCV (RBC) [Entitic vol] 82.5 fL Normal 82.0-98.0 [facility] Comment on above: Performed By: #### L [id number] #### [facility] ([facility]) [address] [place] [address] Monocytes (Bld) [#/Vol] 0.85 10*3/uL Normal 0.10-1.00 [facility] Comment on above: Performed By: #### L [id number] #### [facility] ([facility]) [address] [place] [address] Monocytes/100 WBC (Bld) 8.7 % Normal 5.0-12.0 [facility] Comment on above: Performed By: #### L [id number] #### [facility] ([facility]) [address] [place] [address] Neutrophils (Bld) [#/Vol] 7.01 10*3/uL Normal 1.60-7.60 [facility] Comment on above: Performed By: #### L [id number] #### [facility] ([facility]) [address] [place] [address] Neutrophils/100 WBC (Bld) 71.5 % Normal 40.0-72.0 [facility] Comment on above: Performed By: #### L [id number] #### [facility] [address] [place] [address] NRBC (PER 100 WBCS) BY AUTOMATED COUNT 0.0 % Normal 0 [facility] Comment on above: Performed By: #### L [id number] #### [facility] ([facility]) [address] [place] [address] PLATELETS (10*3/UL) IN BLOOD AUTOMATED COUNT 197 10*3/uL Normal 150-400 [facility] Comment on above: Performed By: #### L [id number] #### [facility] ([facility]) [address] [place] [address] RBC (Bld) [#/Vol] 5.65 10*6/uL Normal 4.20-5.70 [facility] Comment on above: Performed By: #### L [id number] #### [facility] ([facility]) [address] [place] [address] WBC (Bld) [#/Vol] 9.81 10*3/uL Normal 4.00-10.60 [facility] Comment on above: Performed By: #### L [id number] #### [facility] ([facility]) [address] [place] [address] COMPREHENSIVE METABOLIC PANE Braulio 06-26-2024 Albumin [Mass/Vol] 4.4 g/dL Normal 3.5-5.7 [facility] Comment on above: Performed By: #### L [id number] #### [facility] ([facility]) [address] [place] [address] ALP [Catalytic activity/Vol] 59 U/L Normal 34-104 [facility] Comment on above: Performed By: #### L [id number] #### [facility] ([facility]) [address] [place] [address] ALT [Catalytic activity/Vol] 12 U/L Normal 7-52 [facility] Comment on above: Performed By: #### L [id number] #### [facility] ([facility]) [address] [place] [address] Anion gap [Moles/Vol] 9 mmol/L Normal 7-20 [facility] Comment on above: Performed By: #### L [id number] #### [facility] ([facility]) [address] [place] [address] AST [Catalytic activity/Vol] 12 U/L Low 13-39 [facility] Comment on above: Performed By: #### L [id number] #### [facility] ([facility]) [address] [place] [address] Bilirubin [Mass/Vol] 0.6 mg/dL Normal 0.3-1.0 [facility] Comment on above: Performed By: #### L [id number] #### [facility] [address] [place] [address] Calcium [Mass/Vol] 8.8 mg/dL Normal 8.6-10.3 [facility] Comment on above: Performed By: #### L [id number] #### [facility] ([facility]) [address] [place] [address] Chloride [Moles/Vol] 102 mmol/L Normal 98-107 [facility] Comment on above: Performed By: #### L [id number] #### [facility] [address] [place] [address] CO2 [Moles/Vol] 27 mmol/L Normal 21-31 [facility] Comment on above: Performed By: #### L [id number] #### [facility] ([facility]) [address] [place] [address] Creatinine [Mass/Vol] 0.83 mg/dL Normal 0.70-1.30 [facility] Comment on above: Performed By: #### L [id number] #### [facility] [address] [place] [address] GLOMERULAR FILTRATION RATE ML/MIN/1.73 SQ M.PREDICTED 106.0 mL/min/1.73m*2 Normal >60.0 [facility] Comment on above: Result Comment: [facility]???s estimated glomerular filtration rate (eGFR) [...] individuals. Performed By: #### L [id number] #### [facility] ([facility]) [address] [place] [address] Glucose [Mass/Vol] 103 mg/dL High 70-100 [facility] Comment on above: Performed By: #### L [id number] #### [facility] ([facility]) [address] [place] [address] Potassium [Moles/Vol] 4.3 mmol/L Normal 3.5-5.1 [facility] Comment on above: Performed By: #### L [id number] #### [facility] ([facility]) [address] [place] [address] Protein [Mass/Vol] 6.8 g/dL Normal 6.0-8.3 [facility] Comment on above: Performed By: #### L [id number] #### [facility] ([facility]) [address] [place] [address] Sodium [Moles/Vol] 134 mmol/L Low 136-145 [facility] Comment on above: Performed By: #### L [id number] #### [facility] ([facility]) [address] [place] [address] Urea nitrogen [Mass/Vol] 23 mg/dL Normal 7-25 [facility] Comment on above: Performed By: #### L [id number] #### [facility] ([facility]) [address] [place] [address] UREA NITROGEN/CREATININE (MASS RATIO) IN SER/PLAS 27.7 Normal [facility] Comment on above: Performed By: #### L [id number] #### [facility] ([facility]) [address] [place] [address] HIGH SENSITIVITY TROPONIN Io n 06-26-2024 HS TROPONIN I (NG/L) 4 ng/L Normal <20 [facility] Comment on above: Performed By: #### L [id number] #### [facility] [address] [place] [address] HS TROPONIN I (NG/L) 3 ng/L Normal <20 [facility] Comment on above: Performed By: #### L [id number] #### [facility] [address] [place] [address] HS TROPONIN I (NG/L) <2 Normal <20 [facility] Comment on above: Performed By: #### L [id number] #### [facility] ([facility]) [address] [place] [address] LIPID PANELon 06-26-2024 CHOL/HDL 5.9 mg/dL Normal [facility] Comment on above: Performed By: #### L [id number] #### [facility] ([facility]) [address] [place] [address] Cholesterol [Mass/Vol] 236 mg/dL High 120-200 [facility] Comment on above: Performed By: #### L [id number] #### [facility] ([facility]) [address] [place] [address] Magnesium [Mass/Vol] 147 mg/dL Normal <150 [facility] Comment on above: Result Comment: TRIG LYCERIDE REFERENCE RANGE: 20 YEARS AND OLDER CARDIOVASCULAR RISK LESS THAN 150 mg/dL LOW RISK 150 TO 199 mg/dL BORDERLINE RISK 200 mg/dL AND GREATER HIGH RISK Performed By: #### L [id number] #### [facility] ([facility]) [address] [place] [address] Magnesium [Mass/Vol] 167 mg/dL High 0-160 [facility] Comment on above: Performed By: #### L [id number] #### [facility] ([facility]) [address] [place] [address] Magnesium [Mass/Vol] 40 mg/dL Normal 23-92 [facility] Comment on above: Performed By: #### L [id number] #### [facility] ([facility]) [address] [place] [address] NON HDL CHOL. (LDL+VLDL) 196 Normal [facility] Comment on above: Performed By: #### L [id number] #### [facility] [address] [place] [address] TOTAL VLDL-C 29 mg/dL Normal 0-40 [facility] Comment on above: Performed By: #### L [id number] #### [facility] ([facility]) [address] [place] [address] NURSNOTEon 06-26-2024 NURSNOTE Discharge instructio ns explained. Patient left ambulatory with spouse Normal [facility] PROTIME-INRon 06-26-2024 INR IN PPP BY COAGULATION ASSAY 1.92 High 0.90-1.10 [facility] Comment on above: Result [...] CHEST 1995;108:[id number]-246S. Performed By: #### L [id number] #### [facility] ([facility]) [address] [place] [address] PROTHROMBIN TIME (PT) IN PPP BY COAGULATION ASSAY 21.7 Seconds High 12.3-14.8 [facility] Comment on above: Performed By: #### L [id number] #### [facility] ([facility]) [place] [address] 30on 06-25-2024 30 The patient is Moder ately Stable - Low risk of patient condition declining or worsening The patient's goals for the shift include rest The clinical goals for the shift include stable vitals Normal [facility] APTTon 06-25-2024 ACTIVATED PARTIAL THROMBOPLASTIN TIME IN PPP BY COAGULATION ASSAY 34.9 Seconds Normal 25.0-35.0 [facility] Comment on above: Order Comment: Basel ine aPTT before initiating heparin infusion. Result Comment: Clin ical significance of the APTT is questionable in the presence of heparin. Performed By: #### L [id number] ####[facility] ([facility])[place] [address] C-REACTIVE PROTEINon 025 C REACTIVE PROTEIN (MG/L) IN SER/PLAS <5.4 Normal <=5.0 [facility] Comment on above: Result Comment: Test ing performed using a new methodology, turbidimetry. Normal ranges have been updated. Old normal range was <8 mg/L. Performed By: #### L [id number] #### [facility] ([facility]) [place] [address] CKon 06-25-2024 CREATINE KINASE (U/L) IN SER/PLAS 57.0 U/L Normal 30.0-223.0 [facility] Comment on above: Performed By: #### L [id number] #### [facility] ([facility]) [place] [address] CONSULTon 06-25-2024 CONSULT ------ -- Attestation signed by Elder Morales MD at 06/25/2024 9:27 PM By using the attestations below, the signing clinician agrees that I have read and verify that the documentation has been personally reviewed by me and ensure that the documentation accurately reflects the encounter. GC: I performed the nash portion(s) of the service and participated in the management and confirm the resident's documentation. Please note there may be an additional personal documentation from me. -- Cardiology Consult Note Reason for Consult: chest pain abnormal ekg HPI: Nehal Baig is a 53 y.o. male with past history remarkable for primary hypertension, mixed hyperlipidemia, aortic insufficiency s/p mechanical AVR On-X on 06/26/2023, chronic heart failure with preserved ejection fraction, history of pericardial effusion s/p pericardiocentesis who presented to [facility] ED with chest pain for the last 3 weeks. Patient reported multiple episodes of chest pain, not related to exertion, with no radiation. He reported that gets slightly worse upon sitting up and gets slightly better upon laying flat. No other complaints. He also noted that he is getting more short of breath recently. Initial high-sensitivity troponin negative. EKG with T wave inversions anterolaterally and inferiorly. Cardiology consulted for further evaluation and management Cardiology ROS: Review of Systems Constitutional: Negative for activity change and appetite change. Respiratory: Negative for cough, chest tightness, shortness of breath and wheezing. Cardiovascular: Positive for chest pain. Negative for palpitations and leg swelling. Gastrointestinal: Negative for abdominal pain, nausea and vomiting. Genitourinary: Negative for dysuria and hematuria. Neurological: Negative for dizziness and light-headedness. Past Medical History He has a past medical history of Abnormal ECG, Bacteremia, Bacterial endocarditis, COPD (chronic obstructive pulmonary disease) (CMS/HCC), Dyslipidemia, Hepatic steatosis, Left carotid stenosis, Pre-diabetes, Pulmonary nodules, Sleep apnea, Sleep apnea, and TIA (transient ischemic attack) (2019). Surgical History He has a past surgical history that includes Total shoulder arthroplasty (Left); Carpal tunnel release (Bilateral, 2020); Achilles tendon surgery (Left); Colonoscopy w/ polypectomy (2021); Aortic valve replacement (06/26/2023); and Pericardiocentesis (09/03/2023). Social History He reports that he has never smoked. He has never been exposed to tobacco smoke. He has never used smokeless tobacco. He reports that he does not currently use alcohol. He reports that he does not use drugs. Family History Family History Problem Relation Name Age of Onset Lung cancer Mother Epididymitis Father Allergies Atorvastatin Medications Current Outpatient Medications Medication Instructions baclofen (LIORESAL) 20 mg, oral, 3 times daily RT cholecalciferol, vitamin D3, 50 mcg (2,000 unit) capsule 1 capsule, Every 24 hours cyanocobalamin (VITAMIN B-12) 1,000 mcg, oral, Daily dapagliflozin propanediol (FARXIGA) 10 mg, oral, Once Daily furosemide (LASIX) 20 mg, oral, Daily gabapentin (NEURONTIN) 400 mg, oral, 2 times daily, Pt takes at noon metoprolol succinate XL (TOPROL-XL) 25 mg, oral, Daily multivitamin tablet 1 tablet, oral, Daily omeprazole (PRILOSEC) 40 mg, oral, Daily before breakfast spironolactone (ALDACTONE) 25 mg, oral, Once Daily valsartan (DIOVAN) 40 mg, oral, Daily, If systolic Blood pressure is less than 110, do not take medication. Medications Prior to Admission Medication Sig Dispense Refill Last Dose baclofen (Lioresal) 20 mg tablet Take 20 mg by mouth in the morning, afternoon, and at bedtime. Past Week cholecalciferol, vitamin D3, 50 mcg (2,000 unit) capsule 1 capsule 1 (one) time each day at the same time. 06/25/2024 cyanocobalamin (Vitamin B-12) 1,000 mcg tablet Take 1,000 mcg by mouth in the morning. 06/25/2024 dapagliflozin propanediol (Farxiga) 10 mg Take 1 tablet (10 mg) by mouth once daily as directed. 90 tablet 3 06/25/2024 furosemide (Lasix) 20 mg tablet Take 1 tablet (20 mg) by mouth in the morning. 90 tablet 3 06/25/2024 gabapentin (Neurontin) 400 mg capsule Take 400 mg by mouth two times daily. Pt takes at noon 06/25/2024 metoprolol succinate XL (Toprol-XL) 25 mg 24 hr tablet Take 1 tablet (25 mg) by mouth in the morning. 90 tablet 3 06/24/2024 multivitamin tablet Take 1 tablet by mouth in the morning. 06/25/2024 omeprazole (PriLOSEC) [address] capsule TAKE 1 CAPSULE (40 MG) BY MOUTH BEFORE BREAKFAST 30 capsule 6 06/25/2024 spironolactone (Aldactone) 25 mg tablet Take 1 tablet (25 mg) by mouth once daily as directed. 90 tablet 3 06/25/2024 valsartan (Diovan) 40 mg tablet Take 1 tablet (40 mg) by mo (more content not included)... Normal [facility] HIGH SENSITIVITY TROPONIN Io n 06-25-2024 HS TROPONIN I (NG/L) 2 ng/L Normal <20 [facility] Comment on above: Performed By: #### L [id number] #### [facility] ([facility]) [address] [place] [address] HS TROPONIN I (NG/L) 2 ng/L Normal <20 [facility] Comment on above: Performed By: #### L [id number] #### [facility] ([facility]) [address] [place] [address] HS TROPONIN I (NG/L) <2 Normal <20 [facility] Comment on above: Performed By: #### L [id number] #### [facility] ([facility]) [address] [place] [address] HS TROPONIN I (NG/L) 3 ng/L Normal <20 [facility] Comment on above: Performed By: #### L [id number] #### [facility] ([facility]) [address] [place] [address] PLATELET COUNTon 06-25-2024 PLATELETS (10*3/UL) IN BLOOD AUTOMATED COUNT 225 10*3/uL Normal 150-400 [facility] Comment on above: Performed By: #### L [id number] ####[facility] ([facility])[address] [place] [address] PROTIME-INRon 06-25-2024 INR IN PPP BY COAGULATION ASSAY 1.70 High 0.90-1.10 [facility] Comment on above: Result [...] RANGE. CHEST 1995;108:231S-246S. Performed By: #### L [id number] #### [facility] [employer] [address] [place] [address] PROTHROMBIN TIME (PT) IN PPP BY COAGULATION ASSAY 19.7 Seconds High 12.3-14.8 [facility] Comment on above: Performed By: #### L [id number] #### [facility] [employer] [address] [place] [address] SEDIMENTATION RATEon 025 SEDIMENTATION RATE, ERYTHROCYTE 5 mm/hr Normal <20 [facility] Comment on above: Performed By: #### L [id number] #### [facility] [employer] [address] [place] [address] CT SHOULDER LEFT WO IV CONTR Kyle 05-27-2024 CT SHOULDER LEFT WO IV CONTRAST Interpreted By: Estiven Garcia, STUDY: CT SHOULDER LEFT WO IV CONTRAST; ; 05/27/2024 3:18 pm INDICATION: Signs/Symptoms:painful left shoulder replacement. ,M25.512 Pain in left shoulder,Z96.612 Presence of left artificial shoulder joint COMPARISON: Plain film radiographs left shoulder performed on May 12, 2024 ACCESSION NUMBER(S): [id number] ORDERING CLINICIAN: KAYLYNN GARSIA TECHNIQUE: Multiple thin-section axial images left [...] Estiven Garcia 05/27/2024 5:04 PM Dictation workstation: [id number] [facility] Comment on above: Order Comment: Metal subtraction CT Shoulder - left WO contra ston 05-27-2024 Satisfactory appeara nce left total shoulder arthroplasty. 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 MACRO: None Signed by: Estiven Garcia 05/27/2024 5:04 PM Dictation workstation: [id number] [facility] Interpreted By: Estiven Maldonado, STUDY: CT SHOULDER LEFT WO IV CONTRAST; ; 05/27/2024 3:18 pm INDICATION: Signs/Symptoms:painful left shoulder replacement. ,M25.512 Pain in left shoulder,Z96.612 Presence of left artificial shoulder joint COMPARISON: Plain film radiographs left shoulder performed on May 12, 2024 ACCESSION NUMBER(S): [id number] ORDERING CLINICIAN: KAYLYNN GARSIA TECHNIQUE: Multiple thin-section axial images left [...] performed on May 12, 2024 ACCESSION NUMBER(S): [id number] ORDERING CLINICIAN: KAYLYNN GARSIA TECHNIQUE: Multiple thin-section axial images left [...] Estiven Garcia 05/27/2024 5:04 PM Dictation workstation: [id number] [facility] Work Phone: Radiology Study observation (narrative) [facility] Work Phone: CT Shoulder - left WO contra stOrdered By: Estiven Garcia on 05-27-2024 [facility] Work Phone: XR SHOULDER LEFT 2+ VIEWSon 05-12-2024 XR SHOULDER LEFT 2+ VIEWS Interpreted By: Estiven Garcia, STUDY: XR SHOULDER LEFT 2+ VIEWS INDICATION: Signs/Symptoms:PAIN. COMPARISON: May 12, 2024 ACCESSION NUMBER(S): [id number] ORDERING CLINICIAN: KAYLYNN GARSIA FINDINGS: Left total shoulder arthroplasty without fracture, malalignment, or periprosthetic lucency. IMPRESSION: Satisfactory appearance left shoulder arthroplasty. Signed by: Estiven Garcia 05/13/2024 6:10 PM Dictation workstation: [id number] Normal [facility] Office Visiton 04-27-2024 Follow-up visit [id number] Mya Baig k E 1970 M Date Provider Department Center 04/27/2024 Sarah-ZINA CARTER Family History Problem Relation Age of Onset Lung cancer Mother Epididymitis Father Family Status - Relation Status Age at Mother Father Level of Service:19846 [place] OFFICE/OUTPATIENT ESTABLISHED LOW MDM 20 MIN Normal [facility] Orders Onlyon 04-27-2024 Orders Only [id number] Mya Baig k E 1970 M Date Provider Department Center 04/27/2024 MICHAEL RUTHERFORD KADEN Lee Family History Problem Relation Age of Onset Lung cancer Mother Epididymitis Father Family Status - Relation Status Age at Mother Father Normal [facility] Bacteria Fld Culton 04-20-19 25 Bacteria identified Cx Nom (Body fld) CULTURE, BODY FLD: No growth GRAM STAIN: No organisms seen No Polymorphonuclear Leukocytes Gram stain from primary specimen Normal [facility] Comment on above: Performed By: #### 6 11-4 #### [facility] CLIA [id number] [address] [place] [address] [place] CBC W Auto Differential pane l (Bld)on 04-20-2024 Basophils (Bld) [#/Vol] 0.06 10*3/uL [facility] Basophils/100 WBC (Bld) 0.6 % [facility] Differential cell count method Nom (Bld) Auto [facility] Eosinophils (Bld) [#/Vol] 0.21 10*3/uL [facility] Eosinophils/100 WBC (Bld) 2.1 % [facility] Erythrocyte distribution width (RBC) [Ratio] 12.7 % 11.5 - 15.0 % [facility] Hematocrit (Bld) [Volume fraction] 47.8 % 39.0 - 51.0 % [facility] Hemoglobin (Bld) [Mass/Vol] 15.5 g/dL 13.0 - 17.0 g/dL [facility] Immature granulocytes (Bld) [#/Vol] 0.06 10*3/uL [facility] Immature granulocytes/100 WBC (Bld) 0.6 % [facility] Lymphocytes (Bld) [#/Vol] 1.60 10*3/uL [facility] Lymphocytes/100 WBC (Bld) 16.0 % [facility] MCH (RBC) [Entitic mass] 28.2 pg 26.0 - 34.0 pg [facility] MCHC (RBC) [Mass/Vol] 32.4 g/dL 30.5 - 36.0 g/dL [facility] MCV (RBC) [Entitic vol] 87.1 fL 80.0 - 100.0 fL [facility] Monocytes (Bld) [#/Vol] 0.62 10*3/uL [facility] Monocytes/100 WBC (Bld) 6.2 % [facility] Neutrophils (Bld) [#/Vol] 7.44 10*3/uL [facility] Neutrophils/100 WBC (Bld) 74.5 % [facility] Nucleated RBC (Bld) [#/Vol] [facility] Nucleated RBC/100 WBC (Bld) [Ratio] 0.0 % /100 WBC [facility] Platelet mean volume (Bld) [Entitic vol] 10.8 fL 9.0 - 12.7 fL [facility] Platelets (Bld) [#/Vol] 205 10*3/uL [facility] RBC (Bld) [#/Vol] 5.49 10*6/uL 4.20 - 6.00 m/uL [facility] WBC (Bld) [#/Vol] 9.99 10*3/uL [facility] Basophils (Bld) [#/Vol] 0.06 10*3/uL Normal <0.11 [facility] Comment on above: Order Comment: Speci men Type: BLOOD SPECIMEN Ordering Facility: [facility] Address: [address] [place] [address] Performed By: #### 4 537-7, 27837-3 #### [facility] CLIA [id number] [address] [place] [address] [place] Basophils/100 WBC (Bld) 0.6 % Normal [facility] Comment on above: Order Comment: Speci men Type: BLOOD SPECIMEN Ordering Facility: [facility] Address: [address] [place] [address] Performed By: #### 4 537-7, 90017-5 #### [facility] CLIA [id number] [address] [place] [address] [place] Differential cell count method Nom (Bld) Auto Normal [facility] Comment on above: Order Comment: Speci men Type: BLOOD SPECIMEN Ordering Facility: [facility] Address: [address] [place] [address] Performed By: #### 4 537-7, 01344-3 #### [facility] CLIA [id number] [address] [place] [address] [place] Eosinophils (Bld) [#/Vol] 0.21 10*3/uL Normal <0.46 [facility] Comment on above: Order Comment: Speci men Type: BLOOD SPECIMEN Ordering Facility: [facility] Address: [address] [place] [address] Performed By: #### 4 537-7, 87176-8 #### [facility] CLIA [id number] [address] [place] [address] [place] Eosinophils/100 WBC (Bld) 2.1 % Normal [facility] Comment on above: Order Comment: Speci men Type: BLOOD SPECIMEN Ordering Facility: [facility] Address: [address] [place] [address] Performed By: #### 4 537-7, 34251-8 #### [facility] CLIA [id number] [address] [place] [address] [place] Erythrocyte distribution width (RBC) [Ratio] 12.7 % Normal 11.5-15.0 [facility] Comment on above: Order Comment: Speci men Type: BLOOD SPECIMEN Ordering Facility: [facility] Address: [address] [place] [address] Performed By: #### 4 537-7, 60847-4 #### [facility] CLIA [id number] [address] [place] [address] [place] Hematocrit (Bld) [Volume fraction] 47.8 % Normal 39.0-51.0 [facility] Comment on above: Order Comment: Speci men Type: BLOOD SPECIMEN Ordering Facility: [facility] Address: [address] [place] [address] Performed By: #### 4 537-7, 03886-4 #### [facility] CLIA [id number] [address] [place] [address] [place] Hemoglobin (Bld) [Mass/Vol] 15.5 g/dL Normal 13.0-17.0 [facility] Comment on above: Order Comment: Speci men Type: BLOOD SPECIMEN Ordering Facility: [facility] Address: [address] [place] [address] Performed By: #### 4 537-7, 61304-0 #### [facility] CLIA [id number] [address] [place] [address] [place] Immature granulocytes (Bld) [#/Vol] 0.06 10*3/uL Normal <0.10 [facility] Comment on above: Order Comment: Speci men Type: BLOOD SPECIMEN Ordering Facility: [facility] Address: [address] [place] [address] Performed By: #### 4 537-7, 91841-3 #### [facility] CLIA [id number] [address] [place] [address] [place] Immature granulocytes/100 WBC (Bld) 0.6 % Normal [facility] Comment on above: Order Comment: Speci men Type: BLOOD SPECIMEN Ordering Facility: [facility] Address: [address] [place] [address] Performed By: #### 4 537-7, 99542-5 #### [facility] CLIA [id number] [address] [place] [address] [place] Lymphocytes (Bld) [#/Vol] 1.60 10*3/uL Normal 1.00-4.00 [facility] Comment on above: Order Comment: Speci men Type: BLOOD SPECIMEN Ordering Facility: [facility] Address: [address] [place] [address] Performed By: #### 4 537-7, 02260-7 #### [facility] CLIA [id number] [address] [place] [address] [place] Lymphocytes/100 WBC (Bld) 16.0 % Normal [facility] Comment on above: Order Comment: Speci men Type: BLOOD SPECIMEN Ordering Facility: [facility] Address: [address] [place] [address] Performed By: #### 4 537-7, 09824-2 #### [facility] CLIA [id number] [address] [place] [address] [place] MCH (RBC) [Entitic mass] 28.2 pg Normal 26.0-34.0 [facility] Comment on above: Order Comment: Speci men Type: BLOOD SPECIMEN Ordering Facility: [facility] Address: [address] [place] [address] Performed By: #### 4 537-7, 53323-8 #### [facility] CLIA [id number] [address] [place] [address] [place] MCHC (RBC) [Mass/Vol] 32.4 g/dL Normal 30.5-36.0 [facility] Comment on above: Order Comment: Speci men Type: BLOOD SPECIMEN Ordering Facility: [facility] Address: [address] [place] [address] Performed By: #### 4 537-7, 29276-4 #### [facility] CLIA [id number] [address] [place] [address] [place] MCV (RBC) [Entitic vol] 87.1 fL Normal 80.0-100.0 [facility] Comment on above: Order Comment: Speci men Type: BLOOD SPECIMEN Ordering Facility: [facility] Address: [address] [place] [address] Performed By: #### 4 537-7, 04771-4 #### [facility] CLIA [id number] [address] [place] [address] [place] Monocytes (Bld) [#/Vol] 0.62 10*3/uL Normal <0.87 [facility] Comment on above: Order Comment: Speci men Type: BLOOD SPECIMEN Ordering Facility: [facility] Address: [address] [place] [address] Performed By: #### 4 537-7, 71566-5 #### [facility] CLIA [id number] [address] [place] [address] [place] Monocytes/100 WBC (Bld) 6.2 % Normal [facility] Comment on above: Order Comment: Speci men Type: BLOOD SPECIMEN Ordering Facility: [facility] Address: [address] [place] [address] Performed By: #### 4 537-7, 45537-1 #### [facility] CLIA [id number] [address] [place] [address] [place] Neutrophils (Bld) [#/Vol] 7.44 10*3/uL Normal 1.45-7.50 [facility] Comment on above: Order Comment: Speci men Type: BLOOD SPECIMEN Ordering Facility: [facility] Address: [address] [place] [address] Performed By: #### 4 537-7, 56197-0 #### [facility] CLIA [id number] [address] [place] [address] [place] Neutrophils/100 WBC (Bld) 74.5 % Normal [facility] Comment on above: Order Comment: Speci men Type: BLOOD SPECIMEN Ordering Facility: [facility] Address: [address] [place] [address] Performed By: #### 4 537-7, 90457-9 #### [facility] CLIA [id number] [address] [place] [address] [place] Nucleated RBC (Bld) [#/Vol] 10*3/uL Normal <0.01 [facility] Comment on above: Order Comment: Speci men Type: BLOOD SPECIMEN Ordering Facility: [facility] Address: [address] [place] [address] Performed By: #### 4 537-7, 41236-6 #### [facility] CLIA [id number] [address] [place] [address] [place] Nucleated RBC/100 WBC (Bld) [Ratio] 0.0 /100 WBC Normal [facility] Comment on above: Order Comment: Speci men Type: BLOOD SPECIMEN Ordering Facility: [facility] Address: [address] [place] [address] Performed By: #### 4 537-7, 25598-9 #### [facility] CLIA [id number] [address] [place] [address] [place] Platelet mean volume (Bld) [Entitic vol] 10.8 fL Normal 9.0-12.7 [facility] Comment on above: Order Comment: Speci men Type: BLOOD SPECIMEN Ordering Facility: [facility] Address: [address] [place] [address] Performed By: #### 4 537-7, 27544-6 #### [facility] CLIA [id number] [address] [place] [address] [place] Platelets (Bld) [#/Vol] 205 10*3/uL Normal 150-400 [facility] Comment on above: Order Comment: Speci men Type: BLOOD SPECIMEN Ordering Facility: [facility] Address: [address] [place] [address] Performed By: #### 4 537-7, 63413-9 #### [facility] CLIA [id number] [address] [place] [address] [place] RBC (Bld) [#/Vol] 5.49 10*6/uL Normal 4.20-6.00 [facility] Comment on above: Order Comment: Speci men Type: BLOOD SPECIMEN Ordering Facility: [facility] Address: [address] [place] [address] Performed By: #### 4 537-7, 53433-2 #### [facility] CLIA [id number] [address] [place] [address] [place] WBC (Bld) [#/Vol] 9.99 10*3/uL Normal 3.70-11.00 [facility] Comment on above: Order Comment: Speci men Type: BLOOD SPECIMEN Ordering Facility: [facility] Address: [address] [place] [address] Performed By: #### 4 537-7, 52212-6 #### [facility] CLIA [id number] [address] [place] [address] [place] CNOVon 04-20-2024 CNOV Office Visit (ORTHMN ) -- NEHAL BAIG ([id number]) 1970 M Date Time Provider Department 04/20/24 2:30 PM SANTO SALGADO During your visit today, we recorded the following information about you: Santo Salgado MD 04/20/2024 4:00 PM Signed Santo Almonte. Cyber Security Manager of Orthopaedic Surgery at [place] [address] Office: [phone] Consult requested for an opinion regarding the evaluation and treatment of the above patient. My final impression and recommendations will be communicated back to the requesting physician by way of the shared medical record or letter via [place] mail. Patient info: Nehal Baig ([id number]) Service date: 04/20/2024 Referred by: Huan Cowan DO [address] [place] [address] PCP: [facility] [place] Chief Complaint: Left shoulder pain. HPI:Nehal Baig is a 53 year old [id number]-[id number] male who comes in for second opinion [...] for second opinion. 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 Normal [facility] CRP SerPl-mCncon 04-20-2024 CRP [Mass/Vol] 0.4 mg/dL Normal <0.9 [facility] Comment on above: Order Comment: Speci men Type: BLOOD SPECIMEN Ordering Facility: [facility] Address: [address] [place] [address] Performed By: #### 1 988-5 #### [facility] CLIA [id number] [address] [place] [address] [place] D dimer FEU PPP-mCncon 04-20 Fibrin D-dimer FEU (PPP) [Mass/Vol] 360 ng/mL FEU Normal <500 [facility] Comment on above: Order Comment: Speci men Type: BLOOD SPECIMEN Ordering Facility: [facility] Address: [address] [place] [address] Performed By: #### 4 8065-7 #### [facility] CLIA [id number] [address] [place] [address] [place] D-DIMERon 04-20-2024 Fibrin D-dimer FEU (PPP) [Mass/Vol] 360 NINF [facility] ESR Westergren method (Bld) [Velocity]on 04-20-2024 ESR (Bld) [Velocity] 2 mm/h Normal 0-15 [facility] Comment on above: Order Comment: Selmai men Type: BLOOD SPECIMEN Ordering Facility: [facility] Address: [address] [place] [address] Performed By: #### 4 537-7, 73537-8 #### [facility] CLIA [id number] [address] [place] [address] [place] Fibrin D-dimer FEU (PPP) [Ma ss/Vol]on 04-20-2024 D Dimer Age-related Cutoff 510 ng/mL FEU [facility] [facility]/mL FEU is the D [...] M, et al. DENIA 2014 [id number] and Neri Demarco N, et al. Michael Int Med 2016 165:253. [facility] D DIMER AGE-RELATED CUTOFF 510 ng/mL FEU Normal [facility] Comment on above: Order Comment: Tessa flores Type: BLOOD SPECIMEN Ordering Facility: [facility] Address: [address] [place] [address] Performed By: #### 4 8065-7 #### [facility] CLIA [id number] [address] [place] [address] [place] HbA1c (Bld)on 04-20-2024 Average glucose Estimated from glycated hemoglobin (Bld) [Mass/Vol] 100 mg/dL Normal [facility] Comment on above: Order Comment: Tessa flores Type: BLOOD SPECIMEN Ordering Facility: [facility] Address: [address] [place] [address] Result Comment: eAG: (Estimated average glucose) is a calculated value from HgbA1c and is auto claim representative of the average blood glucose level in the last 2-3 month period. Performed By: #### 5 5454-3 #### [facility] CLIA [id number] [address] [place] [address] [place] HbA1c (Bld) [Mass fraction] 5.1 % Normal 4.3-5.6 [facility] Comment on above: Order Comment: Tessa flores Type: BLOOD SPECIMEN Ordering Facility: [facility] Address: [address] [place] [address] Result Comment: Amer [place] Diabetes Association guidelines indicate that patients with HgbA1c in the range 5.7-6.4% are at increased risk for development of diabetes, and intervention by lifestyle modification may be beneficial. HgbA1c greater or equal to 6.5% is considered diagnostic of diabetes. Performed By: #### 5 5454-3 #### [facility] CLIA [id number] [address] [place] [address] [place] Large Joint Arthro/Inj: L sh oulder jointon 04-20-2024 Santo Salgado MD 04/20/2024 4:00 PM Large Joint Arthro/Inj: L shoulder joint Informed Consent Consent Obtained: Verbal Lemmon Protocol A moment to CARE was completed. [...] Plan of Care Visit completed when applicable [facility] XR SHLDR >/=3V AP/REBEKA AP/OTH R LTon [...] Expected postsurgical appearance. No other significant abnormality. Demonstrator Sales: PSCB Transcribe Date/Time: Apr 20 2024 2:35P Dictated by : SYDNIE GAITAN MD This examination was interpreted and the report reviewed and electronically signed by: SYDNIE GAITAN MD on Apr 20 2024 2:35PM EST [id number] Normal [facility] XR Shoulder - left 3 Viewson [...] left shoulder replacement TECHNIQUE: XR SHLDR >/=3V AP/ERBEKA AP/OTHR LT COMPARISON: 12/22/2019 RESULT: Total shoulder arthroplasty with resurfacing components. Expected postsurgical appearance. No other significant abnormality. Demonstrator Sales: [email or web address] Transcribe Date/Time: Apr 20 2024 2:35P Dictated by : SYDNIE GAITAN MD This examination was interpreted and the report reviewed and electronically signed by: SYDNIE GAITAN MD on Apr 20 2024 2:35PM EST DIVISION OF RADIOLOGY Provider, [facility] - 04/20/2024 * * *Final Report* * [...] Expected postsurgical appearance. No other significant abnormality. Demonstrator Sales: PSC[employer] Transcribe Date/Time: Apr 20 2024 2:35P Dictated by : SYDNIE GAITAN MD This examination was interpreted and the report reviewed and electronically signed by: SYDNIE GAITAN MD on Apr 20 2024 2:35PM EST [facility] Radiology Study observation (narrative) [facility] XR Shoulder - left 3 ViewsOr dered By: [facility] Provider on 04-20-2024 [facility] Basophils Auto (Bld) [#/Vol] Ordered By: Imseferino Asaseferino on 04-17-2024 Basophils (Bld) [#/Vol] Automated basophil count 0.0-0.[address] [facility] Basophils/100 WBC Auto (Bld) Ordered By: Imseferino Asaad on 04-17-2024 Basophils/100 WBC (Bld) Automated basophil % . [facility] Complete Blood Count Auto Di ffon 04-17-2024 Basophils (Bld) [#/Vol] 0.1 10*3/uL Normal 0.0-0.2 [facility] Comment on above: Result Comment: PERF ORMED BY: [place] [address] PATHOLOGIST SUPERVISOR [employer] JASWINDER WILD M.D. Performed By: #### P T, CBC, PTT #### [facility] [address] [place] [address] Basophils/100 WBC (Bld) 0.7 % Normal . [facility] Comment on above: Performed By: #### P T, CBC, PTT #### [facility] [address] [place] [address] [place] Eosinophils (Bld) [#/Vol] 0.1 10*3/uL Normal 0.0-0.45 [facility] Comment on above: Performed By: #### P T, CBC, PTT #### [address] Eosinophils/100 WBC (Bld) 1.8 % Normal . [facility] Comment on above: Performed By: #### P T, CBC, PTT #### [address] Erythrocyte distribution width (RBC) [Ratio] 13.2 % Normal 12.0-14.8 [facility] Comment on above: Performed By: #### P T, CBC, PTT #### [address] Hematocrit (Bld) [Volume fraction] 45.1 % Normal 38.8-50.0 [facility] Comment on above: Performed By: #### P T, CBC, PTT #### [address] Hemoglobin (Bld) [Mass/Vol] 15.8 g/dL Normal 13.0-17.0 [facility] Comment on above: Performed By: #### P T, CBC, PTT #### [address] Lymphocytes (Bld) [#/Vol] 1.0 10*3/uL Normal 1.00-4.8 [facility] Comment on above: Performed By: #### P T, CBC, PTT #### [address] Lymphocytes/100 WBC (Bld) 13.6 % Normal . [facility] Comment on above: Performed By: #### P T, CBC, PTT #### [address] MCH (RBC) [Entitic mass] 29.0 pg Normal 27.5-35.2 [facility] Comment on above: Performed By: #### P T, CBC, PTT #### [address] MCV (RBC) [Entitic vol] 82.9 fL Low 83.5-101 [facility] Comment on above: Performed By: #### P T, CBC, PTT #### [address] Mean Corpuscular HGB Conc 34.9 g/dL Normal 32.5-35.6 [facility] Comment on above: Performed By: #### P T, CBC, PTT #### [address] Monocytes (Bld) [#/Vol] 0.6 10*3/uL Normal 0.0-0.8 [facility] Comment on above: Performed By: #### P T, CBC, PTT #### [address] Monocytes/100 WBC (Bld) 8.0 % Normal . [facility] Comment on above: Performed By: #### P T, CBC, PTT #### [address] Neutrophils (Bld) [#/Vol] 5.6 10*3/uL Normal 1.8-7.7 [facility] Comment on above: Performed By: #### P T, CBC, PTT #### [address] Neutrophils/100 WBC (Bld) 75.9 % Normal . [facility] Comment on above: Performed By: #### P T, CBC, PTT #### [address] NRBC% 0.1 /100{WBC} Normal 0-0.5 [facility] Comment on above: Performed By: #### P T, CBC, PTT #### [address] Platelet mean volume (Bld) [Entitic vol] 8.4 fL Normal 6.6-10.1 [facility] Comment on above: Performed By: #### P T, CBC, PTT #### [address] Platelets (Bld) [#/Vol] 188 10*3/uL Normal 150-450 [facility] Comment on above: Performed By: #### P T, CBC, PTT #### [facility] [address] RBC (Bld) [#/Vol] 5.45 10*6/uL Normal 3.90-5.60 [facility] Comment on above: Performed By: #### P T, CBC, PTT #### [facility] [address] WBC (Bld) [#/Vol] 7.4 10*3/uL Normal 4.1-10.5 [facility] Comment on above: Performed By: #### P T, CBC, PTT #### [facility] [address] Eosinophils Auto (Bld) [#/Vo l]Ordered By: Imad Asaad on 04-17-2024 Eosinophils (Bld) [#/Vol] Automated eosinophil count 0.0-0.45 [facility] Eosinophils/100 WBC Auto (Bl d)Ordered By: Imad Asaad on 04-17-2024 Eosinophils/100 WBC (Bld) Automated eosinophil % . [facility] Erythrocyte distribution wid th Auto (RBC) [Ratio]Ordered By: Imad Asaad on 04-17-2024 Erythrocyte distribution width (RBC) [Ratio] Erythrocyte distribution width [Ratio] by Automated count 12.0-14.8 [facility] Hematocrit Auto (Bld) [Volum e fraction]Ordered By: Imad Asaad on 04-17-2024 Hematocrit (Bld) [Volume fraction] Hematocrit [Volume Fraction] of Blood by Automated count 38.8-50.0 [facility] Hemoglobin [Mass/volume] in BloodOrdered By: Imad Asaad on 04-17-2024 Hemoglobin (Bld) [Mass/Vol] Hemoglobin [Mass/volume] in Blood 13.0-17.0 [facility] INR in Platelet poor plasma by Coagulation assayOrdered By: Imad Asaad on 04-17-2024 INR Coag (PPP) [Relative time] INR in Platelet poor plasma by Coagulation assay [facility] Comment on above: INR Therapeutic Rang [...] erythrocytes in Blood by Automated coun 4.1-10.5 [facility] Lymphocytes Auto (Bld) [#/Vo l]Ordered By: Imad Asaad on 04-17-2024 Lymphocytes (Bld) [#/Vol] Lymphocytes [#/volume] in Blood by Automated count 1.00-4.8 [facility] Lymphocytes/100 WBC Auto (Bl d)Ordered By: Imad Asaad on 04-17-2024 Lymphocytes/100 WBC (Bld) Lymphocytes/100 leukocytes in Blood by Automated count . [facility] MCH Auto (RBC) [Entitic mass ]Ordered By: Imad Asaad on 04-17-2024 MCH (RBC) [Entitic mass] MCH [Entitic mass] by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 Comment on above: Performed By: #### 1 [id number] ####[facility] [address] [place] [id number] Reference Lab Reporton 03-13 Reference Lab Report [id number]#1.00TIFF Normal [facility] Lab Miscellaneous-LCon 03-12 Lab Miscellaneous See Ref Report Invalid Interpretation Code [facility] Comment on above: Result Comment: Perf ormed at: [address] [id number] PhD João Blankenship See scanned report Performed at: [address] [id number] PhD João Blankenship Performed By: #### 1 [id number] #### [facility] [address] [place] [address] Reference Lab Reporton 03-12 Reference Lab Report [id number]#1.00TIFF Normal [facility] Lab Miscellaneous-on 03-08 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 Performed By: #### 2 338034, 2952230, [id number] #### [facility] [address] [place] [address] 21148 Basophils/Leukocytes Auto (Bld) [Pure # fraction] 0.1 E9/L Normal 0.0-0.2 [facility] Comment on above: Order Comment: Order Added by Discern Expert. Performed By: #### 2 455833, 7738817, 2460646 #### [facility] [address] [place] [address] 33388 Eosinophils/100 WBC (Bld) 2.6 % Normal 0.0-8.0 [facility] Comment on above: Order Comment: Order Added by Discern Expert. Performed By: #### 2 947286, 9355457, 7691715 #### [facility] [address] [place] [address] 00238 Eosinophils/Leukocyt es Auto (Bld) [Pure # fraction] 0.2 E9/L Normal 0.0-0.5 [facility] Comment on above: Order Comment: Order Added by Discern Expert. Performed By: #### 2 629828, 1941095, 7623184 #### [facility] [address] [place] [address] 56775 Lymphocytes/100 WBC (Bld) 18.6 % Normal 14.0-50.0 [facility] Comment on above: Order Comment: Order Added by Discern Expert. Performed By: #### 2 762467, 4793108, 9308493 #### [facility] [address] [place] [address] 41801 Lymphocytes/Leukocyt es Auto (Bld) [Pure # fraction] 1.3 E9/L Normal 1.0-4.0 [facility] Comment on above: Order Comment: Order Added by Discern Expert. Performed By: #### 2 854271, 8273283, 5109108 #### [facility] [address] [place] [address] 33626 Monocytes/100 WBC (Bld) 10.3 % Normal 4.0-14.0 [facility] Comment on above: Order Comment: Order Added by Discern Expert. Performed By: #### 2 581940, 9733283, 0702524 #### [facility] [address] [place] [address] 27213 Monocytes/Leukocytes Auto (Bld) [Pure # fraction] 0.7 E9/L Normal 0.2-1.0 [facility] Comment on above: Order Comment: Order Added by Discern Expert. Performed By: #### 2 187034, 0994899, 8581404 #### [facility] [address] [place] [address] 03863 Neutrophils/100 WBC (Bld) 67.8 % Normal 36.0-75.0 [facility] Comment on above: Order Comment: Order Added by Discern Expert. Performed By: #### 2 721900, 5293738, 2506276 #### [facility] [address] [place] [address] 44500 Neutrophils/Leukocyt es Auto (Bld) [Pure # fraction] 4.8 E9/L Normal 2.0-7.5 [facility] Comment on above: Order Comment: Order Added by Discern Expert. Performed By: #### 2 407940, 4274936, 7493492 #### [facility] [address] [place] [address] 26423 CBC w/ Auto Diffon 3 Erythrocyte distribution width (RBC) [Ratio] 13.1 % Normal 10.9-14.2 [facility] Comment on above: Performed By: #### 2 030774, 6827698, 3943975 #### [facility] [address] [place] [address] 68301 Hematocrit (Bld) [Volume fraction] 39.2 % Normal 37.7-49.0 [facility] Comment on above: Performed By: #### 2 654001, 8525154, 6129248 #### [facility] [address] [place] [address] Hemoglobin (Bld) [Mass/Vol] 13.4 g/dL Low 13.5-17.5 [facility] Comment on above: Performed By: #### 2 523783, 4662808, 2935482 #### [facility] [address] [place] [address] 48961 MCH (RBC) [Entitic mass] 29.0 pg Normal 27.0-34.0 [facility] Comment on above: Performed By: #### 2 435655, 7931215, 5716366 #### [facility] [address] [place] [address] 83185 MCHC (RBC) [Mass/Vol] 34.3 g/dL Normal 31.4-36.0 [facility] Comment on above: Performed By: #### 2 789305, 1145270, 1139603 #### [facility] [address] [place] [address] 16485 MCV (RBC) [Entitic vol] 84.6 fL Normal 80.0-100.0 [facility] Comment on above: Performed By: #### 2 474389, 9699211, 0359687 #### [facility] [address] [place] [address] 87903 Platelet mean volume (Bld) [Entitic vol] 7.7 fL Normal 6.4-10.8 [facility] Comment on above: Performed By: #### 2 415261, 4896997, 2897507 #### [facility] [address] [place] [address] 36223 Platelets (Bld) [#/Vol] 261.0 E9/L Normal 150.0-500. 0 [facility] Comment on above: Performed By: #### 2 948669, 3437677, 7294583 #### [facility] [address] [place] [address] 53313 RBC (Bld) [#/Vol] 4.6 E12/L Normal 4.3-5.9 [facility] Comment on above: Performed By: #### 2 765148, 9084369, 8940845 #### [facility] [address] [place] [address] WBC corrected for nucl RBC Auto (Bld) [#/Vol] 7.1 E9/L Normal 4.0-11.0 [facility] Comment on above: Performed By: #### 2 305168, 1285368, 1169433 #### [facility] [address] [place] [address] CHEMISTRYOrdered By: SYSTEM SYSTEM on 03-07-2023 CRP [Mass/Vol] 1.8 mg/dL Normal <=1.9mg/dL [facility] Remis ol CRPon 03-07-2023 CRP [Mass/Vol] 1.8 mg/dL Normal <=1.9 [facility] Comment on above: Performed By: #### 2 917022, 8158668, 5565104 #### [facility] [address] [place] [address] Consent for Treatmenton Consent for Treatment [id number]#1.00TIFF Normal [facility] Erythrocyte sedimentation ra te by Photometric methodOrdered By: Huan Cowan on 03-07-2023 ESR Photometric method (Bld) [Velocity] 9 mm/hr 0-19 [facility] HEMATOLOGYOrdered By: SYSTEM SYSTEM on 03-07-2023 [...] 7.1 E9/L Normal 4.0 - 11.0 E9/L [facility] HemeAutoSS Lab Miscellaneous-LCon 03-07 Test Code 774839 Invalid Interpretation Code [facility] Comment on above: Performed By: #### 1 [id number] #### [facility] [address] [place] [address] [facility] Invalid Interpretation Code [facility] Comment on above: Performed By: #### 1 [id number] #### [facility] [address] [place] [address] Test Name IL 6 Invalid Interpretation Code [facility] Comment on above: Performed By: #### 1 [id number] #### [facility] [address] [place] [address] Test Name SED RATE/FIREAL Invalid Interpretation Code [facility] Comment on above: Performed By: #### 1 [id number] #### [facility] [address] [place] [address] Physician Orderon 03-07-2023 Physician Order [id number]#1.00TIFF Normal [facility] Reference Laboratory Testing Ordered By: Ysameen Ca on 03-07-2023 Sodium [Moles/Vol] 184505 mmol/L Invalid Interpretation Code [facility] SendOuts Test Code TO [place] Invalid Interpretation Code [facility] SendOutsSS Test Name SED RATE/FIREAL Invalid Interpretation Code [facility] SendOutsSS Test Name [place] 6 Invalid Interpretation Code [facility] SendOutsSS Operative Reporton Operative Report [id number]#1.00TIFF Normal [facility] Formson 02-27-2023 Forms [id number]#1.00TIFF Normal [facility] Provider Letteron 02-27-2023 Provider Letter (Inserted Image. Jessica ble to display) [address] [place] [address] February 27, 2023 NEHAL BAIG [address] [place] [address] : [address] Mazariegos, The above patient has been evaluated at your request for preoperative clearance. After assessment of available pertinent labs and diagnostic tests, I feel this patient is medically optimized for surgery. Final discretion of whether the patient is cleared for surgery remains up to the surgeon/anesthesiologist. Thank you, GINNY MotaP-Krissy Normal [facility] Auto Diffon 02-26-2023 Basophils/100 WBC (Bld) 0.6 % Normal 0.0-2.0 [facility] Comment on above: Order Comment: Order Added by Discern Expert. Performed By: #### 2 814510, 5587982 ####[facility] [address] [place] [address] Basophils/Leukocytes Auto (Bld) [Pure # fraction] 0.1 E9/L Normal 0.0-0.2 [facility] Comment on above: Order Comment: Order Added by Discern Expert. Performed By: #### 2 435353, 0862705 ####[facility] [address] [place] [address] Eosinophils/100 WBC (Bld) 2.3 % Normal 0.0-8.0 [facility] Comment on above: Order Comment: Order Added by Discern Expert. Performed By: #### 2 377501, 8408422 ####[facility] [address] [place] [address] 67549 Eosinophils/Leukocyt es Auto (Bld) [Pure # fraction] 0.2 E9/L Normal 0.0-0.5 [facility] Comment on above: Order Comment: Order Added by Discern Expert. Performed By: #### 2 890515, 5216525 ####[facility] [address] [place] [address] Lymphocytes/100 WBC (Bld) 16.2 % Normal 14.0-50.0 [facility] Comment on above: Order Comment: Order Added by Discern Expert. Performed By: #### 2 169010, 3494259 ####[facility] [address] [place] [address] Lymphocytes/Leukocyt es Auto (Bld) [Pure # fraction] 1.5 E9/L Normal 1.0-4.0 [facility] Comment on above: Order Comment: Order Added by Discern Expert. Performed By: #### 2 475218, 7111639 ####[address] [address] Monocytes/100 WBC (Bld) 6.8 % Normal 4.0-14.0 [facility] Comment on above: Order Comment: Order Added by Discern Expert. Performed By: #### 2 855104, 9180080 ####[address] [address] Monocytes/Leukocytes Auto (Bld) [Pure # fraction] 0.6 E9/L Normal 0.2-1.0 [facility] Comment on above: Order Comment: Order Added by Discern Expert. Performed By: #### 2 [id number], [id number] ####[address] [address] Neutrophils/100 WBC (Bld) 74.1 % Normal 36.0-75.0 [facility] Comment on above: Order Comment: Order Added by Discern Expert. Performed By: #### 2 078254, [id number] ####[address] [address] Neutrophils/Leukocyt es Auto (Bld) [Pure # fraction] 6.6 E9/L Normal 2.0-7.5 [facility] Comment on above: Order Comment: Order Added by Discern Expert. Performed By: #### 2 073934, [id number] ####[address] [address] CBC w/ Auto Diffon 3 Erythrocyte distribution width (RBC) [Ratio] 13.6 % Normal 10.9-14.2 [facility] Comment on above: Performed By: #### 2 036814, [id number] ####[address] [address] Hematocrit (Bld) [Volume fraction] 40.5 % Normal 37.7-49.0 [facility] Comment on above: Performed By: #### 2 086443, [id number] ####[address] [address] Hemoglobin (Bld) [Mass/Vol] 13.9 g/dL Normal 13.5-17.5 [facility] Comment on above: Performed By: #### 2 866328, 5137846 ####[address] [address] MCH (RBC) [Entitic mass] 28.9 pg Normal 27.0-34.0 [facility] Comment on above: Performed By: #### 2 623561, 3324525 ####[address] [address] MCHC (RBC) [Mass/Vol] 34.3 g/dL Normal 31.4-36.0 [facility] Comment on above: Performed By: #### 2 491821, 5678830 ####[address] [address] MCV (RBC) [Entitic vol] 84.2 fL Normal 80.0-100.0 [facility] Comment on above: Performed By: #### 2 809917, 2667908 ####[address] [address] Platelet mean volume (Bld) [Entitic vol] 7.7 fL Normal 6.4-10.8 [facility] Comment on above: Performed By: #### 2 070900, 3464138 ####[address] [address] Platelets (Bld) [#/Vol] 244.0 E9/L Normal 150.0-500. 0 [facility] Comment on above: Performed By: #### 2 365674, 8533737 ####[address] [address] RBC (Bld) [#/Vol] 4.8 E12/L Normal 4.3-5.9 [facility] Comment on above: Performed By: #### 2 977392, 2059646 ####[address] [place] [address] WBC corrected for nucl RBC Auto (Bld) [#/Vol] 8.9 E9/L Normal 4.0-11.0 [facility] Comment on above: Performed By: #### 2 573830, 7658032 ####[facility] [address] [place] [address] Consent for Treatmenton 01-31 Consent for Treatment [id number]#1.00TIFF Normal [facility] HEMATOLOGYOrdered By: SYSTEM SYSTEM on 02-26-2023 [...] 40.5 % Normal 37.7 - 49.0 % [facility] HemeAutoSS Hemoglobin (Bld) [Mass/Vol] 13.9 g/dL Normal 13.5 - 17.5 gm/dL FT HemeAutoSS MCH (RBC) [Entitic mass] 28.9 pg Normal 27.0 - 34.0 pg [facility] HemeAutoSS MCHC (RBC) [Mass/Vol] 34.3 g/dL Normal 31.4 - 36.0 gm/dL FT HemeAutoSS MCV (RBC) [Entitic vol] 84.2 fL Normal 80.0 - 100.0 fL FT HemeAutoSS Platelet mean volume (Bld) [Entitic vol] 7.7 fL Normal 6.4 - 10.8 fL FT HemeAutoSS Platelets (Bld) [#/Vol] 244.0 E9/L Normal 150.0 - 500.0 E9/L [facility] HemeAutoSS RBC (Bld) [#/Vol] 4.8 E12/L Normal 4.3 - 5.9 E12/L [facility] HemeAutoSS WBC corrected for nucl RBC Auto (Bld) [#/Vol] 8.9 E9/L Normal 4.0 - 11.0 E9/L [facility] HemeAutoSS Physician Orderon 02-26-2023 Physician Order [id number]#1.00TIFF Normal [facility] CHEMISTRYOrdered By: SYSTEM SYSTEM on 02-25-2023 CRP [Mass/Vol] 6.7 mg/dL High <=1.9mg/dL [facility] Remis ol CRPon 02-25-2023 CRP [Mass/Vol] 6.7 mg/dL High <=1.9 [facility] Comment on above: Performed By: #### 2 [id number] ####[facility] [address] [place] [address] Consent for Treatmenton 01-31 Consent for Treatment [id number]#1.00TIFF Normal [facility] ED Note-Physicianon 02-26-20 ED Note-Physician [id number]#1.00TIFF Normal [facility] Lab Miscellaneous-LCon 02-25 Test Code 106161 Invalid Interpretation Code [facility] Comment on above: Performed By: #### 1 [id number] ####[facility] [address] [place] [address] Test Name Interleukin-6 Invalid Interpretation Code [facility] Comment on above: Performed By: #### 1 [id number] ####[facility] [address] [place] [address] Physician Orderon 02-25-2023 Physician Order [id number]#1.00TIFF Normal [facility] RAD - MISCon 02-25-2023 RAD - MISC [id number]#1.00TIFF Normal [facility] Reference Laboratory Testing Ordered By: Elysia Oseguera on 02-25-2023 Sodium [Moles/Vol] 788708 mmol/L Invalid Interpretation Code [facility] SendOuts Test Name Interleukin-6 Invalid Interpretation Code [facility] Consult[facility] Noteon 02-20-20 Consultation Note [id number]#1.00TIFF Normal [facility] Operative Reporton 3 Operative Report [id number]#1.00TIFF Normal [facility] Consultation Noteon 01-30-20 23 Consultation Note [id number]#1.00TIFF Normal [facility] RAD - MRI Reporton 3 RAD - MRI Report [id number]#1.00TIFF Normal [facility] RAD - MISCon 01-16-2023 RAD - MISC [id number]#1.00TIFF Normal [facility] RAD - MISC [id number]#1.00TIFF Normal [facility] Lab Reportson 01-14-2023 Lab Reports [id number]#1.00TIFF Normal [facility] Lab Reports [id number]#1.00TIFF Normal [facility] Retail - Clinical Noteon Retail - Clinical Note [id number]#1.00TIFF [facility] Ambulatory Visit Summaryon 1 Ambulatory Visit [...] Depression Obesity shoulder pain sleep disorder Normal [facility] XR ankle LT min 3V*on 2022 XR ankle LT min 3V* [facility] Meilele Other XR ankle LT min 3V* [facility] [address] T[employer] Other XR ankle LT min 3V* [address] [place] [address] Tailored Other XR ankle LT min 3V* [place] [id number] [employer]ailored Other XR ankle LT min 3V* XRay Report Nort [employer] Other XR ankle LT min 3V* Signed [employer] Other XR ankle LT min 3V* Patient: Nehal Baig MR#: [id number] [employer] Other XR ankle LT min 3V* 8 [employer] Other XR ankle LT min 3V* : 1970 Acct:[id number] [employer] Other XR ankle LT min 3V* Age/Sex: 52 / M ADM Date: 12/16/22 [employer] Other XR ankle LT min 3V* Loc: XDUCLY Room: pe: [facility] Tailored Other XR ankle LT min 3V* Attending Dr: Kelly Yi MANAGER REIMBURSEMENT-C [employer] Other XR ankle LT min 3V* Copies to: Kelly Yi NP-C [employer] Other XR ankle LT min 3V* Ordering Provider: KRISTI RehmanC [employer] Other XR ankle LT min 3V* Date of Service: 12/16/22 [employer]ailored Other XR ankle LT min 3V* [address]) XR/XR ankle LT min 3V*: LEFT ANKLE PAIN [employer] Other XR ankle LT min 3V* XR ankle LT min 3V* 12/16/2022 10:31 AM [employer] Other XR ankle LT min 3V* SIGNS AND SYMPTOMS: Pain and swelling of the posterior left ankle [employer] Other XR ankle LT min 3V* PROTOCOL: Frontal, lateral, and oblique radiographs of the left ankle [employer] Other XR ankle LT min 3V* COMPARISON: None [employer] Other XR ankle LT min 3V* FINDINGS: Tailored Other XR ankle LT min 3V* The ankle mortise is preserved. There is no evidence of fracture or dislocation. There is Achilles [employer] Other XR ankle LT min 3V* surface calcaneal spurring. There is soft tissue swelling diffusely which is nonspecific. [employer] Other XR ankle LT min 3V* X R/XR ankle LT min 3V* Tailored Other XR ankle LT min 3V* IMPRESSION: Nort [place] Other XR ankle LT min 3V* No fracture. [facility] Meilele Other XR ankle LT min 3V* Diffuse soft tissue swelling. [employer]ored Other XR ankle LT min 3V* There is Achilles castano rface calcaneal spurring. [employer]ored Other XR ankle LT min 3V* Impression dictated by: Nehal Horner M.D.12/16/2022 10:42 AM [employer] Other XR ankle LT min 3V* Dictation Location: RADIO-PC-13 [employer] Other XR ankle LT min 3V* Transcribed By: MARLO 12/16/22 1042 [employer] Other XR ankle LT min 3V* Dictated By: Nehal Horner II, MD 12/16/22 [facility]2 [employer]ored Other XR ankle LT min 3V* Signed By: Tailored Other XR ankle LT min 3V* 12/16/22 1042 No rt Meilele Other US KIDNEY/BLADDERon 05-26-19 US KIDNEY/BLADDER * * [...] No evidence of renal calculus or hydronephrosis. Demonstrator Sales: GREGORY Transcribe Date/Time: May 26 2022 2:43P Dictated by : BOB RODRIGUEZ MD This examination was interpreted and the report reviewed and electronically signed by: BOB RODRIGUEZ MD on May 27 2022 5:50AM EST [id number] Normal [facility] MRI CSPINE WO CONon 04-23-19 23 MRI [...] by: KINGSLEY HERRERA Date: 2022-04-23 06:50 Normal [facility] XR FOREIGN BODY EYEon 2022 XR FOREIGN BODY EYE EXAMINATION: XR FORE IGN BODY EYE HISTORY: Foreign body in eye COMPARISON: No relevant comparison available. FINDINGS: ORBITS: Negative for a metallic foreign body. OTHER: Negative. IMPRESSION: 1. No metallic foreign body within the orbits. Electronically authenticated by: JAYY GIVENS Date: 2022-04-20 13:52 Normal [facility] ECHOon 09-19-2021 [facility] No Panel Informationon 09-19 [facility] US CAROTID BILATon [address] [facility] [address] CHEST WO IVCONon 09-19-[address] CHEST WO IVCON * * *Final Report* * * DATE OF EXAM: Sep 18 2021 12:09PM [facility] 0541 - CT CHEST WO IVCON [...] No abnormality in the imaged upper abdomen. [place] (topogram) images: No additional findings. IMPRESSION: Stable pulmonary nodules including the 7 mm nodule along the minor fissure. Transcribed Using Voice Recognition Transcribe Date/Time: Sep 20 2021 2:25P Dictated by: POLY JACKSON MD This examination was interpreted and the report reviewed and electronically signed by: POLY JACKSON MD on Sep 20 2021 2:33PM EST [id number] Normal [facility] BLOOD BANKOrdered By: Darcie Medina on 08-23-2021 ABO/Rh Interp Negative Invalid Interpretation Code [facility] BB Subsection ABSC Gel Interp Negative (08/23/21 6:20 AM) Normal [facility] BB Subsection CHEMISTRYOrdered By: Lab ROP User on 08-23-2021 Glucose [Mass/Vol] 113 mg/dL High 55 - 99 mg/dL FT POC Subsection Comment on above: Result Comment: Jes lisandra Meter POC Device SN [id number] Invalid Interpretation Code FT POC Subsection POC User ID [id number] Invalid Interpretation Code [facility] POC Subsection POC Username IKMBERLEY ACKERMAN Invalid Interpretation Code [facility] POC Subsection URINALYSISOrdered By: [...] AM) Normal Negative [facility] UA Auto SS [place].plasma/Lithi um.RBC (Bld) [Mass ratio] 0-3 /HPF Normal [...] AM) Invalid Interpretation Code 1.005 - 1.030 [facility] UA Auto SS UA Spec Desc Barragan (08/23/21 7:36 AM) Normal [facility] UA Auto SS Urobilinogen Qn (U) 1.3946114 {Sean'U}/dL Normal 0.0 - 1.0 EU/dL [facility] UA Auto SS WBC Auto Ql (U) Negative (08/23/21 7:36 AM) Normal Negative [facility] UA Auto SS WBC LM.HPF (Urine sed) [#/Area] 0-5 /HPF Normal 0-5/HPF [facility] UA Auto SS BLOOD BANKOrdered By: Kat Salcedo on 08-08-2021 ABO/Rh Retype Interp Negative Invalid Interpretation Code [facility] BB Subsection CHEMISTRYOrdered By: SYSTEM SYSTEM on 08-08-2021 Anion gap [Moles/Vol] 11 mmol/L Normal 6 - 16 mEq/L [facility] Remisol Chloride [Moles/Vol] 104 mmol/L Normal 101 - 1 11 mmol/L [facility] Remisol CO2 [Moles/Vol] 25 mmol/L Normal 21 - 31 mmol/L [facility] Remisol Creatinine [Mass/Vol] 0.8 mg/dL Normal 0.5 - 1.3 mg/dL [facility] Remisol GFR/1.73 sq M.predicted among blacks MDRD (S/P/Bld) [Vol rate/Area] mL/min/1.73 m2 Normal >=59mL/min /1.73 m2 [facility] Chem S GFR/1.73 sq M.predicted among non-blacks MDRD (S/P/Bld) [Vol rate/Area] mL/min/1.73 m2 Normal >=59mL/min /1.73 m2 [facility] Chem S Glucose [Mass/Vol] [...] AM) Normal Negative FT UA Auto SS [place].plasma/Lithi um.RBC (Bld) [Mass ratio] 0-3 /HPF Normal [...] Desc Clean Catch (08/08/21 10:04 AM) Normal [facility] UA Auto SS Urobilinogen Qn (U) 0.2981372 {Sean'U}/dL Normal 0.0 - 1.0 EU/dL FT UA Auto SS WBC Auto Ql (U) Negative (08/08/21 10:04 AM) Normal Negative [facility] UA Auto SS WBC LM.HPF (Urine sed) [#/Area] 0-5 /HPF Normal 0-5/HPF [facility] UA Auto SS ANES POSTPROC EVALon 022 ANES POSTPROC EVAL HNO ID: [id number] Author: Lucy Flanagan MD Service: Anesthesiology Author Type: Anesthesiologist Type: Anesthesia Postprocedure Evaluation Filed: 07/31/2021 12:56 PM Note Text: POST ANESTHESIA EVALUATION NOTE : 1970 Procedure Summary Date: 07/31/21 Room / Location: [facility] Anesthesia Start: 1053 Anesthesia Stop: 1145 Procedure: COLONOSCOPY DIAGNOSTIC Diagnosis: Dark stools (OTHER) Scheduled Providers: Jayy Patel MD; Cori Ashley APRN.BOBBIN DISKER; Lucy Flanagan MD Responsible Provider: Lucy Flanagan [...] July 31, 2021 TIME: 12:55 PM CSN: [id number] Normal [facility] ANES PRE-OPon 07-31-2021 ANES PRE-OP HNO ID: [id number] Author: Lucy Flanagan MD Service: Anesthesiology Author Type: Anesthesiologist Type: Anesthesia Preprocedure Evaluation Filed: 07/31/2021 9:50 AM Note Text: ANESTHESIOLOGY DAY OF SURGERY NOTE : 1970 Procedure Information Date/Time: 07/31/21 1030 Scheduled providers: Jayy Patel MD; Cori Ashley POWER WASHER.BOBBIN DISKER; Lucy Flanagan MD Procedure: COLONOSCOPY DIAGNOSTIC Location: [facility] Estimated body mass index is [...] July 31, 2021 TIME: 9:49 AM CSN: [id number] Normal [facility] COLONOSCOPY DIAGNOSTICon [facility] HISTORY PHYSICALon HISTORY PHYSICAL HNO ID: [id number] Author: Jayy Patel MD Service: General Surgery [...] 31, 2021 TIME: 10:58 AM Normal [facility] SURGICAL PATHOLOGYon 022 CASE REPORT Normal [facility] Comment on above: Order Comment: Speci men Type: TISSUE SPECIMEN Ordering Facility: [facility] Address: [address] [place] [address] Result Comment: Surg ica Pathology Report Case: [id number] Authorizing Provider: Jayy Patel MD Collected: 07/31/2021 11:31 AM Ordering Location: [facility] Received: 07/31/2021 02:15 PM Pathologist: Luis F Quiroz MD Specimen: SIGMOID COLON POLYP Performed By: #### S #### [facility] CLIA [id number] [address] [place] [address] FINAL DIAGNOSIS Normal [facility] Comment on above: Order Comment: Speci men Type: TISSUE SPECIMEN Ordering Facility: [facility] Address: [address] [place], [place] [id number] Result Comment: Sigm oid colon polyp, biopsy: - Tubular adenoma. JEL 08/01/2021 Performed By: #### S #### [facility] CLIA [id number] [address] [place] [address] FINAL PERFORMING LAB Normal [facility] Comment on above: Order Comment: Speci men Type: TISSUE SPECIMEN Ordering Facility: [facility] Address: [address] [place] [address] Result Comment: Diag nostic interpretation performed at [facility], [address] [place] [address] CLIA# [id number] [employer] Meat Presser: Nehal Cid M.D. Performed By: #### S #### [facility] CLIA [id number] [address] [place] [address] GROSS DESCRIPTION [facility] Comment on above: Order Comment: Speci [facility] Type: TISSUE SPECIMEN Ordering Facility: [facility] Address: [address] [place] [address] Result Comment: A. S IGMOID COLON POLYP. Received in formalin are multiple pieces of kaufman, soft tissue aggregating to 1.8 x 0.3 x 0.2 cm. Totally submitted in one cassette. SS July 31, 2021 7:11 PM Gross examination performed at [facility], [address] [place] [address] Performed By: #### S #### [facility] CLIA [id number] [address] [place] [address] CHEST WO IVCONon 02-14-20 21 Radiology Result ACTIONABLE Abnormal [facility] XR Hand - bilateral PA and L ateral and Obliqueon 12-12-2020 IMPRESSION: Mild degenerative changes, no acute findings. Demonstrator Sales: GREGORY Transcribe Date/Time: Dec 12 2020 3:47P Dictated by : DAJA GOLDSTEIN MD This examination was interpreted and the report reviewed and electronically signed by: DAJA GOLDSTEIN MD on Dec 12 2020 3:47PM [facility] DIVISION OF RADIOLOGY * * *Final Report* [...] significant abnormality. DIVISION OF RADIOLOGY Provider, Kev [facility] - 12/12/2020 * * *Final Report* [...] IMPRESSION: Mild degenerative changes, no acute findings. Demonstrator Sales: GREGORY Transcribe Date/Time: Dec 12 2020 3:47P Dictated by : DAJA GOLDSTEIN MD This examination was interpreted and the report reviewed and electronically signed by: DAJA GOLDSTEIN MD on Dec 12 2020 3:47PM EST [facility] Radiology Study observation (narrative) [facility] XR Hand - bilateral PA and L ateral and ObliqueOrdered By: Ccf Provider on 12-12-2020 [facility] Basic Metab w/rfx MGon 08-02 (cont.) Normal [facility] Comment on above: Result Comment: Aver age GFR for 40-49 years old: 99 mL/min/1.73sq m Chronic Kidney Disease: <60 mL/min/1.73sq m Kidney failure: <15 mL/min/1.73sq m eGFR calculated using average adult body mass. Additional eGFR calculator available at: http://www.[employer]/multiple_crcl_2012.htm Performed By: #### C BC, BMPX ####[facility] [address] [place], [place] [phone] Director: Nate Stafford MD Anion gap [Moles/Vol] 11 mmol/L Normal 9-17 [facility] Comment on above: Performed By: #### C BC, BMPX ####[facility] [address] [place] [address] Lab Director: Nate Stafford MD Calcium [Mass/Vol] 8.5 mg/dL Low 8.6-10.4 [facility] Comment on above: Performed By: #### C BC, BMPX ####[facility] [address] [place] [address] Lab Director: Nate Stafford MD Chloride [Moles/Vol] 101 mmol/L Normal 98-107 [facility] Comment on above: Performed By: #### C BC, BMPX ####[facility] [address] [place] [address] [phone] Director: Nate Stafford MD CO2 [Moles/Vol] 23 mmol/L Normal 20-31 [facility] Comment on above: Performed By: #### C BC, BMPX ####[facility] [address] [place] [address] Lab Director: Nate Stafford MD Creatinine [Mass/Vol] 0.62 mg/dL Low 0.70-1.20 [facility] Comment on above: Performed By: #### C BC, BMPX ####[facility] [address] [place], [place] [phone] Director: Nate Stafford MD GFR, Amer >60 Normal >60 [facility] Comment on above: Performed By: #### C BC, BMPX ####[facility] [address] [place], [place] [phone] Director: Nate Stafford MD GFR,non Amer >60 Normal >60 [facility] Comment on above: Performed By: #### C BC, BMPX ####[facility] [address] [place] [address] Lab Director: Nate Stafford MD Glucose [Mass/Vol] 120 mg/dL High 70-99 [facility] Comment on above: Performed By: #### C BC, BMPX ####[facility] [address] [place] [address] Lab Director: Nate Stafford MD Potassium [Moles/Vol] 4.3 mmol/L Normal 3.7-5.3 [facility] Comment on above: Performed By: #### C BC, BMPX ####[facility] [address] [place] [address] Lab Director: Nate Stafford MD Sodium [Moles/Vol] 135 mmol/L Normal 135-144 [facility] Comment on above: Performed By: #### C BC, BMPX ####[facility] [address] [place] [address] Lab Director: Nate Stafford MD Urea nitrogen [Mass/Vol] 14 mg/dL Normal 6-20 [facility] Comment on above: Performed By: #### C BC, BMPX ####[facility] [address] [place] [address] Lab Director: Nate Stafford MD BUN/CRE Ratio NOT REPORTED Normal 9-20 [facility] Comment on above: Performed By: #### C BC, BMPX ####[facility] [address] [place] [address] Lab Director: Nate Stafford MD Staging: NOT REPORTED Normal [facility] Comment on above: Performed By: #### C BC, BMPX ####[facility] [address] [place] [address] Lab Director: Nate Stafford MD Basic Metabolic Panel w/ Ref johnny to MGOrdered By: Halina Pathak on 08-02-2020 Anion gap [Moles/Vol] 11 mmol/L 9 - 17 mmol/L [employer] Phone: Calcium [Mass/Vol] 8.5 mg/dL Low 8.6 - 10. 4 mg/dL [employer] Phone: Chloride [Moles/Vol] 101 mmol/L 98 - 10 7 mmol/L [employer] Phone: CO2 [Moles/Vol] 23 mmol/L 20 - 31 mmol/L [employer] Phone: Creatinine [Mass/Vol] 0.62 mg/dL Low 0.70 - 1.20 mg/dL [employer] Phone: GFR >60 >60 mL/min [employer] Phone: GFR Non- >60 >60 mL/min [employer] Phone: GFR/1.73 sq M.predicted MDRD (S/P/Bld) [Vol rate/Area] [employer] Phone: Comment on above: Average GFR for 40-4 9 years old: 99 mL/min/1.73sq m Chronic Kidney Disease: <60 mL/min/1.73sq m Kidney failure: <15 mL/min/1.73sq m eGFR calculated using average adult body mass. Additional eGFR calculator available at: http://www.[employer]/multiple_crcl_2012.htm GFR/1.73 sq M.predicted MDRD (S/P/Bld) [Vol rate/Area] NOT REPORTED [employer] Phone: Glucose [Mass/Vol] 120 mg/dL High 70 - 99 mg/dL [employer] Phone: Interpretation and review of laboratory results Abnormal [employer] Phone: Potassium [Moles/Vol] 4.3 mmol/L 3.7 - 5.3 mmol/L [employer] Phone: Sodium [Moles/Vol] 135 mmol/L 135 - 144 mmol/L [employer] Phone: Urea nitrogen (BldV) [Mass/Vol] 14 mg/dL 6 - 20 mg/dL [employer] Phone: Urea nitrogen/Creatinine (Bld) [Mass ratio] NOT REPORTED [employer] Phone: CBCon 08-02-2020 Erythrocyte distribution width (RBC) [Ratio] 13.0 % Normal 11.8-14.4 [facility] Comment on above: Performed By: #### C BC, BMPX ####[facility] [address] [place] [address] [phone] Lab Director: Nate Stafford MD Hematocrit (Bld) [Volume fraction] 41.8 % Normal 40.7-50.3 [facility] Comment on above: Performed By: #### C BC, BMPX ####[facility] HospitalImageVisionMpiilmrwgvsk[address] [place] [address] Lab Director: Nate Stafford MD Hemoglobin (Bld) [Mass/Vol] 13.8 g/dL Normal 13.0-17.0 [facility] Comment on above: Performed By: #### C BC, BMPX ####[facility] [address] [place] [address] Lab Director: Nate Stafford MD MCH (RBC) [Entitic mass] 29.3 pg Normal 25.2-33.5 [facility] Comment on above: Performed By: #### C BC, BMPX ####[facility] [address] [place] [address] Lab Director: Nate Stafford MD MCHC (RBC) [Mass/Vol] 33.0 g/dL Normal 28.4-34.8 [facility] Comment on above: Performed By: #### C BC, BMPX ####[facility] [address] [place], [place] [phone] Director: Nate Stafford MD MCV (RBC) [Entitic vol] 88.7 fL Normal 82.6-102.9 [facility] Comment on above: Performed By: #### C BC, BMPX ####[address] [phone] Director: Nate Stafford MD NRBC Automated 0.0 per 100 WBC Normal 0.0 [facility] Comment on above: Performed By: #### C BC, BMPX ####[address] [phone] Director: Nate Stafford MD Platelet mean volume (Bld) [Entitic vol] 10.9 fL Normal 8.1-13.5 [facility] Comment on above: Performed By: #### C BC, BMPX ####[address] [phone] Director: Nate Stafford MD Platelets (Bld) [#/Vol] 221 10*3/uL Normal 138-453 [facility] Comment on above: Performed By: #### C BC, BMPX ####[facility] [address] [place] [address] [phone] Director: Nate Stafford MD RBC (Bld) [#/Vol] 4.71 10*6/uL Normal 4.21-5.77 [facility] Comment on above: Performed By: #### C BC, BMPX ####[address] [phone] Director: Nate Stafford MD WBC (Bld) [#/Vol] 10.6 10*3/uL Normal 3.5-11.3 [facility] Comment on above: Performed By: #### C BC, BMPX ####[facility] [address] [place] [address] lab Director: Nate Stafford MD CBCOrdered By: Halina Pathak on 08-02-2020 Hematocrit (Bld) [Volume fraction] 41.8 % 40.7 - 50.3 % [employer] Phone: Hemoglobin.gastroint estinal spec 1 Ql (Stl) 13.8 g/dL 13.0 - 17.0 g/dL [employer] Phone: MCH (RBC) [Entitic mass] 29.3 pg 25.2 - 33.5 pg [employer] Phone: MCHC (RBC) [Mass/Vol] 33.0 g/dL 28.4 - 34.8 g/dL [employer] Phone: MCV (RBC) [Entitic vol] 88.7 fL 82.6 - 102.9 fL [employer] Phone: NRBC Automated 0.0 0.0 per 100 WBC [employer] Phone: Platelet distribution width (Bld) [Ratio] 13.0 % 11.8 - 14.4 % [employer] Phone: Platelet mean volume (Bld) [Entitic vol] 10.9 fL 8.1 - 13.5 fL [employer] Phone: Platelets (Bld) [#/Vol] 221 10*3/uL [employer] Phone: RBC (Bld) [#/Vol] 4.71 10*6/uL 4.21 - 5.77 m/uL [employer] Phone: WBC (Bld) [#/Vol] 10.6 10*3/uL [employer] Phone: Trauma Profileon 08-02-2020 (cont.) Normal [facility] Comment on above: Result Comment: Aver age GFR for 40-49 years old: 99 mL/min/1.73sq m Chronic Kidney Disease: <60 mL/min/1.73sq m Kidney failure: <15 mL/min/1.73sq m eGFR calculated using average adult body mass. Additional eGFR calculator available at: http://www.[employer]/multiple_crcl_2012.htm Performed By: #### E RTPF, TROPI ####[facility] [address] [place], [place] [phone] Director: Nate Stafford MD Anion gap [Moles/Vol] 10 mmol/L Normal 9-17 [facility] Comment on above: Performed By: #### E RTPF, TROPI ####[address] [phone] Director: Nate Stafford MD Chloride [Moles/Vol] 100 mmol/L Normal 98-107 [facility] Comment on above: Performed By: #### E RTPF, TROPI ####[facility] [address] [place] [address] [phone] Director: Nate Stafford MD CO2 [Moles/Vol] 24 mmol/L Normal 20-31 [facility] Comment on above: Performed By: #### E RTPF, TROPI ####[facility] [address] [place] [address] [phone] Director: Nate Stafford MD Creatinine [Mass/Vol] 0.71 mg/dL Normal 0.70-1.20 [facility] Comment on above: Performed By: #### E RTPF, TROPI ####[facility] [address] [place], [place] [phone] Director: Nate Stafford MD Ethanol [Mass/Vol] mg/dL Normal <10 [facility] Comment on above: Performed By: #### E RTPF, TROPI ####[facility] [address] [place], [place] [phone] Director: Nate Stafford MD Ethanol percent <0.010 Normal <0.010 [facility] Comment on above: Performed By: #### E RTPF, TROPI ####[facility] [address] [place], [place] [phone] Director: Nate Stafford MD GFR, Amer >60 Normal >60 [facility] Comment on above: Performed By: #### E RTPF, TROPI ####[facility] [address] [place], [place] [phone] Director: Nate Stafford MD GFR,non Amer >60 Normal >60 [facility] Comment on above: Performed By: #### E RTPF, TROPI ####[facility] [address] [place], [place] [phone] Director: Nate Stafford MD Glucose [Mass/Vol] 109 mg/dL High 70-99 [facility] Comment on above: Performed By: #### E RTPF, TROPI ####[facility] [address] [place], [place] [phone] Director: Nate Stafford MD Potassium [Moles/Vol] 4.2 mmol/L Normal 3.7-5.3 [facility] Comment on above: Performed By: #### E RTPF, TROPI ####[facility] [address] [place], [place] [phone] Director: Nate Stafford MD Sodium [Moles/Vol] 134 mmol/L Low 135-144 [facility] Comment on above: Performed By: #### E RTPF, TROPI ####[facility] [address] [place], [place] [phone] Director: Nate Stafford MD Urea nitrogen [Mass/Vol] 15 mg/dL Normal 6-20 [facility] Comment on above: Performed By: #### E RTPF, TROPI ####[facility] [address] [place] [address] lab Director: Nate Stafford MD Troponinon 08-02-2020 Troponin, High Sens 6 ng/L Normal 0-22 [facility] Comment on above: Result Comment: High Sensitivity Troponin values cannot be compared with other Troponin methodologies. Patients with high levels of Biotin oral intake (i.e >5mg/day) may have falsely decreased Troponin levels. Samples collected within 8 hours of biotin intake may require additional information for diagnosis. Performed By: #### E RTBERNIE TROPI ####[facility] [address] [place] [address] lab Director: Nate Stafford MD Type + Screenon 08-02-2020 Type + Screen Sample Expiration 08/04/2020,2359 Arm Band Number BE [id number] ABO/Rh(D) A NEGATIVE Antibody Screen NEGATIVE Normal [facility] Comment on above: Performed By: #### T YS ####[facility] [address] [place] [address] lab Director: Nate Stafford MD CT CERVICAL [...] Johnny Smalls MD 08/01/20 Final result Normal [facility] CT CERVICAL SPINE WO CONTRAS TOrdered By: Ronnie Lund on 08-01-2020 C6-7 cervical spondy losis and degenerative disc disease. Evidence of paracervical spasm. No acute bony abnormalities are noted [employer] Work Phone: EXAMINATION: CT OF T HE [...] intact. The visualized lung apices are clear. [employer] Phone: Francisco, Mhpn Incoming R adiant Results From [facility] - 08/01/2020 7:04 PM EDT EXAMINATION: CT [...] spasm. No acute bony abnormalities are noted [employer] Phone: CT CHEST ABDOMEN PELVIS W CO [...] Elizabeth Shoemaker MD 08/01/20 Final result Normal [facility] CT CHEST ABDOMEN PELVIS W [...] to Lung-RADS guidelines. Reference: Radiology. 2017; 284(1):228-43. [employer] Work Phone: EXAMINATION: CT OF T HE [...] hernia. Bones/Soft Tissues: No acute osseous abnormality. [employer] Work Phone: Francisco, Mhpn Incoming R adiant Results From [facility] - 08/01/2020 7:19 PM EDT EXAMINATION: CT [...] to Lung-RADS guidelines. Reference: Radiology. 2017; 284(1):228-43. [employer] Phone: CT HEAD WO CONTRASTon 2020 CT [...] Jarek Fernández MD 08/01/20 Final result Normal [facility] CT Head WO ContrastOrdered B y: Ronnie Lund on 08-01-2020 1. No acute intracra nial abnormality. [employer] Phone: EXAMINATION: CT OF T HE HEAD [...] clear. SOFT TISSUES/SKULL: The calvarium is intact. [employer] Phone: Francisco, Mhpn Incoming R adiant Results From [facility] - 08/01/2020 7:01 PM EDT EXAMINATION: CT [...] intact. IMPRESSION: 1. No acute intracranial abnormality. [employer] Phone: CT LUMBAR SPINE TRAUMA RECON STRUCTIONon [...] Johnny Smalls MD 08/01/20 Final result Normal [facility] CT THORACIC SPINE TRAUMA REC [...] Johnny Smalls MD 08/01/20 Final result Normal [facility] Drug Scr, Abuse, Uron 2020 Amphetamine(s),Ur Negative Normal NEG [facility] Comment on above: Result Comment: (Positive cutoff 1000 ng/mL) Performed By: #### U AMIC, LOUIS #### [facility] [address] [place] [phone] Welfare Case Worker: Nate Stafford MD Barbiturate(s),Ur Negative Normal NEG [facility] Comment on above: Result Comment: (Positive cutoff 200 ng/mL) Performed By: #### U AMIC, LOUIS #### [facility] [address] [place] [address] Welfare Case Worker: Nate Stafford MD Benzodiazepine(s) Negative Normal NEG [facility] Comment on above: Result Comment: (Positive cutoff 200 ng/mL) Performed By: #### U AMIC, LOUIS #### [facility] [employer] [address] [place] [address] [phone] Welfare Case Worker: Nate Stafford MD Cannabinoid(s),Ur Negative Normal NEG [facility] Comment on above: Result Comment: (Positive cutoff 50 ng/mL) Performed By: #### U AMIC, LOUIS #### [facility] [address] [place] [address] Welfare Case Worker: Nate Stafford MD Cocaine Metabolite Negative Normal NEG [facility] Comment on above: Result Comment: (Positive cutoff 300 ng/mL) Performed By: #### U AMIC, LOUIS #### [facility] [employer] [address] [place] [address] 134[address] Welfare Case Worker: Nate Stafford MD Interpretive Info Assay provides medic al screening only. The absence of expected drug(s) and/or Normal [facility] Comment on above: Result Comment: meta bolite(s) may indicate diluted or adulterated urine, limitations of testing or timing of collection. Testing for legal purposes should be confirmed by another method. To request confirmation of test result, please call the lab within 7 days of sample submission. Performed By: #### U AMIC, LOUIS #### [facility] [address] [place] [address] Welfare Case Worker: Nate Stafford MD Methadone Ql (U) Negative Normal NEG [facility] Comment on above: Result Comment: (Positive cutoff 300 ng/mL) Performed By: #### U AMIC, LOUIS #### [facility] [employer] [address] [place] [address] 355[address] Welfare Case Worker: Nate Stafford MD Opiate(s), Ur Negative Normal NEG [facility] Comment on above: Result Comment: (Positive cutoff 300 ng/mL) Performed By: #### U AMIC, LOUIS #### [facility] [address] [place] [address] 9[address] Welfare Case Worker: Nate Stafford MD Oxycodone, Urine Negative Normal NEG [facility] Comment on above: Result Comment: (Positive cutoff 100 ng/mL) Performed By: #### U AMIC, LOUIS #### [facility] [address] [place] [address] Welfare Case Worker: Nate Stafford MD Phencyclidine, Ur Negative Normal NEG [facility] Comment on above: Result Comment: (Positive cutoff 25 ng/mL) Performed By: #### U AMIC, LOUIS #### [facility] [address] [place] [address] Welfare Case Worker: Nate Stafford MD Buprenorphrine, Ur NOT REPORTED Normal NEG [facility] Comment on above: Performed By: #### U AMIC, LOUIS #### [facility] [address] [place] [address] Welfare Case Worker: Nate Stafford MD MDMA, Urine NOT REPORTED Normal NEG [facility] Comment on above: Performed By: #### U AMIC, LOUIS #### [facility] [address] [place] [address] Welfare Case Worker: Nate Stafford MD Methamphetamine, Ur NOT REPORTED Normal NEG [facility] Comment on above: Performed By: #### U AMIC, LOUIS #### [facility] [address] [place] [address] Welfare Case Worker: Nate Stafford MD Propoxyphene,Urine NOT REPORTED Normal NEG [facility] Comment on above: Performed By: #### U AMIC, LOUIS #### [facility] [address] [place] [address] Welfare Case Worker: Nate Stafford MD Tricyclic antidepressants Screen Ql (U) NOT REPORTED Normal NEG [facility] Comment on above: Performed By: #### U AMIC, LOUIS #### [facility] [address] [place] [address] Welfare Case Worker: Nate Stafford MD No Panel InformationOrdered [...] to body habitus but requires clinical correlation. [employer] Phone: EXAMINATION: TWO XRA Y VIEWS OF [...] may relate to swelling or body habitus. [employer] Phone: Francisco, Mhpn Incoming R adiant Results From [facility] - 08/01/2020 9:41 PM EDT EXAMINATION: TWO [...] to body habitus but requires clinical correlation. [employer] Phone: No Panel InformationOrdered By: Ronnie Lund on 08-01-2020 Degenerative disc di sease at L5-S1. No acute bony abnormalities are seen in the thoracic or lumbar spine [employer] Phone: EXAMINATION: CT OF T HE LUMBAR [...] SOFT TISSUES/RETROPERITONEUM: No paraspinal mass is seen. [employer] Work Phone: Francisco, Mhpn Incoming R adiant Results From [facility] - 08/01/2020 7:11 PM EDT EXAMINATION: CT [...] seen in the thoracic or lumbar spine [employer] Phone: TRAUMA PANELOrdered By: Carlos Pathak on 08-01-2020 Lawson Test Unable to perform te sting: No specimen received. [employer] Phone: Anion gap [Moles/Vol] 10 mmol/L 9 - 17 mmol/L [employer] Phone: aPTT Coag (Bld) [Time] 23.3 s [employer] Phone: Comment on above: IV Heparin Therapy Range: 48.6-77.8 Blood Bank Specimen BILL FOR SERVICES PERFORMED [employer] Phone: Carboxyhemoglobin Unable to perform te sting: No specimen received. % [employer] Work Phone: Chloride [Moles/Vol] 100 mmol/L 98 - 10 7 mmol/L [employer] Phone: CO2 [Moles/Vol] 24 mmol/L 20 - 31 mmol/L [employer] Phone: Creatinine [Mass/Vol] 0.71 mg/dL 0.70 - 1.20 mg/dL [employer] Phone: Ethanol [Mass/Vol] mg/dL <10 mg/dL [employer] Phone: Ethanol percent <0.010 <0.010 % [facility] Work Phone: FIO2 Unable to perform te sting: No specimen received. [employer] Phone: GFR >60 >60 mL/min [employer] Phone: GFR Non- >60 >60 mL/min [employer] Phone: GFR/1.73 sq M.predicted MDRD (S/P/Bld) [Vol rate/Area] [employer] Phone: Comment on above: Average GFR for 40-4 9 years old: 99 mL/min/1.73sq m Chronic Kidney Disease: <60 mL/min/1.73sq m Kidney failure: <15 mL/min/1.73sq m eGFR calculated using average adult body mass. Additional eGFR calculator available at: http://www.[employer]/multiple_crcl_2012.htm GFR/1.73 sq M.predicted MDRD (S/P/Bld) [Vol rate/Area] NOT REPORTED [employer] Phone: Glucose [Mass/Vol] 109 mg/dL High 70 - 99 mg/dL [employer] Phone: hCG Qual PATIENT IS MALE NEGATIVE [facility] Work Phone: HCO3, Venous Unable to perform te sting: No specimen received. 24.0 - 30.0 mmol/L [employer] Phone: Hematocrit (Bld) [Volume fraction] 42.3 % 40.7 - 50.3 % [employer] Phone: Hemoglobin.gastroint estinal spec 1 Ql (Stl) 14.2 g/dL 13.0 - 17.0 g/dL [employer] Phone: INR Coag (Bld) [Relative time] 1.0 {INR} [employer] Phone: Comment on above: Therapeutic Range: Moderate Anticoagulant Intensity: INR = 2.0-3.0 High Anticoagulant Intensity: INR = 2.5-3.5 Interpretation and review of laboratory results Abnormal [employer] Phone: MCH (RBC) [Entitic mass] 29.3 pg 25.2 - 33.5 pg [employer] Phone: MCHC (RBC) [Mass/Vol] 33.6 g/dL 28.4 - 34.8 g/dL [employer] Phone: MCV (RBC) [Entitic vol] 87.2 fL 82.6 - 102.9 fL [employer] Phone: Methemoglobin Unable to perform te sting: No specimen received. % [employer] Phone: Mode Unable to perform te sting: No specimen received. [employer] Phone: Negative Base Excess, Srikanth Unable to perform testing: No specimen received. 0.0 - 2.0 mmol/L [employer] Phone: NOTIFICATION Unable to perform te sting: No specimen received. [employer] Phone: NOTIFICATION TIME Unable to perform te sting: No specimen received. [employer] Phone: NRBC Automated 0.0 0.0 per 100 WBC [employer] Phone: O2 Device/Flow/% Unable to perform te sting: No specimen received. [employer] Phone: O2 Sat, Srikanth Unable to perform te sting: No specimen received. % [employer] Phone: Oxyhemoglobin Unable to perform te sting: No specimen received. 95.0 - 98.0 % [employer] Phone: pCO2, Srikanth Unable to perform te sting: No specimen received. [employer] Phone: pCO2, Srikanth, Temp Adj Unable to perform te sting: No specimen received. [employer] Phone: Peep/Cpap Unable to perform te sting: No specimen received. [employer] Phone: pH, Srikanth Unable to perform te sting: No specimen received. [employer] Phone: pH, Srikanth, Temp Adj Unable to perform te sting: No specimen received. [employer] Phone: Platelet distribution width (Bld) [Ratio] 12.9 % 11.8 - 14.4 % [employer] Phone: Platelet mean volume (Bld) [Entitic vol] 10.1 fL 8.1 - 13.5 fL [employer] Phone: Platelets (Bld) [#/Vol] 220 10*3/uL [employer] Phone: pO2, Srikanth Unable to perform te sting: No specimen received. [employer] Phone: pO2, Srikanth, Temp Adj Unable to perform te sting: No specimen received. [employer] Phone: Positive Base Excess, Srikanth Unable to perform testing: No specimen received. 0.0 - 2.0 mmol/L [employer] Phone: Potassium [Moles/Vol] 4.2 mmol/L 3.7 - 5.3 mmol/L [employer] Phone: PSV Unable to perform te sting: No specimen received. [employer] Phone: PT Coag (PPP) [Time] 10.4 s [employer] Phone: Pt Temp Unable to perform te sting: No specimen received. [employer] Phone: Pt. Position Unable to perform te sting: No specimen received. [employer] Phone: RBC (Bld) [#/Vol] 4.85 10*6/uL 4.21 - 5.77 m/uL [employer] Phone: Respiratory Rate Unable to perform te sting: No specimen received. [employer] Phone: Sample Site Unable to perform te sting: No specimen received. [employer] Phone: Set Rate Unable to perform te sting: No specimen received. [employer] Phone: Sodium [Moles/Vol] 134 mmol/L Low 135 - 144 mmol/L [employer] Phone: Text for Respiratory Unable to perform t esting: No specimen received. [employer] Phone: Total Hb Unable to perform te sting: No specimen received. 12.0 - 16.0 g/dl [employer] Phone: Total Rate Unable to perform te sting: No specimen received. [employer] Work Phone: Urea nitrogen (BldV) [Mass/Vol] 15 mg/dL 6 - 20 mg/dL [employer] Phone: VT Unable to perform te sting: No specimen received. [employer] Phone: WBC (Bld) [#/Vol] 14.1 10*3/uL High [employer] Phone: TYPE AND SCREENOrdered By: Ivonne Ba on 08-01-2020 ABO/Rh Negative [employer] Work Phone: Arm Band Number BE [id number] [facility] Work Phone: Expiration Date 08/04/2020,2359 [employer] Work Phone: Trauma Profileon 08-01-2020 aPTT Coag (Bld) [Time] 23.3 s Normal 20.5-30.5 [facility] Comment on above: Result Comment: IV Heparin Therapy Range: 48.6-77.8 Performed By: #### E RTPF TROPI ####[facility] [place], [place] [phone] lab Director: Nate Stafford MD INR Coag (PPP) [Relative time] 1.0 {INR} Normal [facility] Comment on above: Result Comment: Therapeutic Range: Moderate Anticoagulant Intensity: INR = 2.0-3.0 High Anticoagulant Intensity: INR = 2.5-3.5 Performed By: #### E RTPF, TROPI ####[facility] [employer] [place] [address] Lab Director: Nate Stafford MD PT Coag (PPP) [Time] 10.4 s Normal 9.1-12.3 [facility] Comment on above: Performed By: #### E RTBERNIE TROPI ####[facility] [address] [place], [place] [phone] Director: Nate Stafford MD Erythrocyte distribution width (RBC) [Ratio] 12.9 % Normal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 Start: 02-04-2024 End: 02-04-2024 Patient encounter procedure 02/04/2024 1:45 PM EST Office Visit [facility] [address] [place] [id number] Huan Cowan DO [address] [place] [address] Arrived [facility] Comment on above: Arrived Start: 12-01-2023 Covid-19 Vaccine ( season) Covid-19 Vaccine () [facility] Start: 12-01-2023 Influenza vaccination Influenza Vaccine (#[facility]) [facility] Start: 08-21-2023 ANNUAL PCP TEAM CHRONIC DISEASE VISIT ANNUAL PCP TEAM CHRONIC DISEASE VISIT [facility] Start: 08-21-2023 BP CONTROLLED (<130/80) BP CONTROLLED (<130/80) [facility] Start: 08-21-2023 COVID-19 VACCINE (#1) COVID-19 VACCINE (#1) [facility] Comment on above: Postponed from 04/05/1973 (Declined at t his time) Start: 05-21-2023 ANNUAL PCP TEAM CHRONIC DISEASE VISIT ANNUAL PCP TEAM CHRONIC DISEASE VISIT [facility] Start: 02-15-2023 ANNUAL PCP TEAM CHRONIC DISEASE VISIT ANNUAL PCP TEAM CHRONIC DISEASE VISIT [facility] Start: 11-30-2022 Influenza vaccination [facility] Start: 11-22-2022 DIABETES SCREEN DIABETES SCREEN [facility] Start: 11-15-2022 ANNUAL PCP TEAM CHRONIC DISEASE VISIT ANNUAL PCP TEAM CHRONIC DISEASE VISIT [facility] Start: 11-15-2022 BP CONTROLLED (<130/80) BP CONTROLLED (<130/80) [facility] Start: 10-26-2022 BP CONTROLLED (<130/80) BP CONTROLLED (<130/80) [facility] Start: 2022 Pneumococcal vaccination Pneumococcal Vaccine (1 of 1 - PCV) [facility] Start: 2022 Pneumococcal Vaccine: 50+ (1 of 1 - PCV) Pneumococcal Vaccine: 50+ (1 of 1 - PCV) [facility] Start: 2022 SHINGRIX VACCINE (1 of 2) SHINGRIX VACCINE (1 of 2) [facility] Start: 2022 Zoster Vaccines (1 of 2) Zoster Vaccines (1 of 2) [facility] Start: 09-28-2022 Influenza vaccination INFLUENZA (#1) [facility] Comment on above: Postponed from 11/30/2021 (Declined at t his time) Start: 08-15-2022 BP CONTROLLED (<130/80) BP CONTROLLED (<130/80) [facility] Start: 08-10-2022 ANNUAL PCP TEAM CHRONIC DISEASE VISIT ANNUAL PCP TEAM CHRONIC DISEASE VISIT [facility] Start: 08-10-2022 BP CONTROLLED (<130/80) BP CONTROLLED (<130/80) [facility] Start: 08-10-2022 COVID-19 VACCINE (#1) COVID-19 VACCINE (#1) [facility] Comment on above: Postponed from 1977 (Declined at t his time) Postponed from 04/05 (Declined at this time) Start: 08-09-2022 Adult depression screening assessment DEPRESSION SCREENING [facility] Start: 07-31-2022 Colonoscopy COLONOSCOPY [facility] Start: 07-31-2022 COLORECTAL CANCER SCREENING COLORECTAL CANCER SCREENING [facility] Start: 07-25-2022 ANNUAL PCP TEAM CHRONIC DISEASE VISIT ANNUAL PCP TEAM CHRONIC DISEASE VISIT [facility] Start: 05-28-2022 End: 07-28-2022 Protein/Creatinine [Mass Ratio] in Urine PROTEIN CREATININE RATIO Lab Routine Proteinuria, unspecified type Expected: 05/28/2022, Expires: 07/28/2022 [facility] Work Phone: Comment on above: Expected: 05/28/2022, Expires: Start: 11-30-2021 Influenza vaccination [facility] Start: 10-19-2021 ANNUAL PCP TEAM CHRONIC DISEASE VISIT ANNUAL PCP TEAM CHRONIC DISEASE VISIT [facility] Start: 08-06-2021 Adult depression screening assessment DEPRESSION SCREENING [facility] Start: 08-02-2021 Creatinine measurement Creatinine monitoring [employer] Phone: Start: 08-02-2021 Potassium monitoring Potassium monitoring [employer] Phone: Start: 11-30-2020 Influenza vaccination [facility] Start: 2017 COLOGUARD (FIT-DNA) COLOGUARD (FIT-DNA) [facility] Start: 2017 Colonoscopy COLONOSCOPY [facility] Start: 2017 COLORECTAL CANCER SCREENING COLORECTAL CANCER SCREENING [facility] Start: [address] COLONOGRAPHY [facility] Start: 2017 FECAL OCCULT BLOOD FECAL OCCULT BLOOD [facility] Start: 2017 Screening for malignant neoplasm of colon [facility] Start: 2017 SIGMOIDOSCOPY SIGMOIDOSCOPY [facility] Start: 2012 Diabetes screen Diabetes screen [employer] Phone: Start: 10-04-1991 Hepatitis A Vaccines (1 of 2 - Risk 2-dose series) Hepatitis A Vaccines (1 of 2 - Risk 2-dose series) [facility] Start: 10-04-1991 Hepatitis B Vaccine (1 of 3 - 19+ 3-dose series) Hepatitis B Vaccine (1 of 3 - 19+ 3-dose series) [facility] Start: 10-04-1991 Hepatitis B Vaccines (1 of 3 - 19+ 3-dose series) Hepatitis B Vaccines (1 of 3 - 19+ 3-dose series) [facility] Start: 10-04-1991 Urine microalbumin profile DTAP,TDAP,TD (1 - Tdap) [facility] Start: 1990 Anxiety Screening Anxiety Screening [facility] Start: 1990 BP CONTROLLED (<130/80) BP CONTROLLED (<130/80) [facility] Start: 1990 Depression Screening Depression Screening [facility] Start: 1990 Hepatitis C screening Hepatitis C Screening [facility] Start: 1988 COVID-19 Vaccine (1) COVID-19 Vaccine (1) [employer] Phone: Start: 10-04-1987 HIV screening HIV screen [facility] [employer] Phone: Start: 1982 Lipid panel Lipid screen [employer] Phone: Start: 1977 COVID-19 VACCINE (1) COVID-19 VACCINE (1) [facility] Start: 1973 MMR Vaccines (1 of 1 - Standard series) MMR Vaccines (1 of 1 - Standard series) [facility] Start: 1972 Creatinine measurement Creatinine Level [facility] Start: 1972 Echocardiography Echocardiogram [facility] Start: 1972 HEPATITIS B (1 of 3 - 3-dose series) HEPATITIS B (1 of 3 - 3-dose series) [facility] Start: 1972 Hepatitis C screening Hepatitis C screen [facility] [employer] Phone: Start: 1972 HIV screening HIV Screening [facility] Start: 1972 Lipid panel Lipid Panel [facility] Start: 1972 Potassium measurement Potassium Level [facility] Start: 1972 Screening for malignant neoplasm of colon [facility] Start: 1972 Yearly Adult Physical Yearly Adult Physical [facility] End: 07-25-2022 COLONOSCOPY DIAGNOSTIC COLONOSCOPY DIAGNOSTIC Endoscopy Routine Dark stools 1 Occurrences starting 07/25/2021 until 07/25/2022 [facility] Work Phone: Comment on above: 1 Occurrences starting 07/25/2021 until 07/25/2022 End: 05-20-2025 CT Shoulder - left Arthrogram CT ARTHROGRAM SHOULDER LEFT Radiology Routine Nontraumatic tear of left rotator cuff, unspecified tear extent Infection of prosthetic joint, initial encounter (HCC) Elevated glucose 1 Occurrences starting 04/20/2024 until 05/20/2025 [facility] Work Phone: Comment on above: 1 Occurrences starting 04/20/2024 until 05/20/2025 Ct thorax w/o contra st material CT CHEST WO IVCON Radiology Timed Lung nodules 09/18/2021 12:09 PM EDT [facility] Work Phone: End: 09-09-2022 Duplex scan extracranial art compl bi study US CAROTID BILAT Radiology Routine Stenosis of carotid artery, unspecified laterality 1 Occurrences starting 08/10/2021 until 09/09/2022 [facility] Work Phone: Comment on above: 1 Occurrences starting 08/10/2021 until 09/09/2022 End: 08-10-2022 Echocardiography ECHO Cardiology Routine SOB (shortness of breath) on exertion 1 Occurrences starting 08/10/2021 until 08/10/2022 [facility] Work Phone: Comment on above: 1 Occurrences starting 08/10/2021 until 08/10/2022 EKG 12 Lead EKG 12 Lead ECG STAT 08/01/2020 9:26 PM EDT [facility] Work Phone: Oxygen therapy [[facility] Data Set] Initiate Oxygen Therapy Protocol Respiratory Care Routine Daily until discontinued starting 08/02/2020 [facility] Work Phone: Comment on above: Daily until discontinued starting 2020 Patient Education [facility] Work Phone: End: 05-20-2025 RF Shoulder - left Arthrogram XR INJ ARTHROGRAM SHOULDER LEFT Radiology Routine Nontraumatic tear of left rotator cuff, unspecified tear extent 1 Occurrences starting 04/20/2024 until 05/20/2025 [facility] Comment on above: 1 Occurrences starting 04/20/2024 until 05/20/2025 SURGICAL PATHOLOGY [facility] Work Phone: Comment on above: Release Upon Ordering for 1 Occurrences starting 07/31/2021, 1 completed End: 09-09-2022 Us abdominal real time w/image limited US ABD RT UPPER QUADRANT Radiology Routine Elevated liver enzymes 1 Occurrences starting 08/10/2021 until 09/09/2022 [facility] Work Phone: Comment on above: 1 Occurrences starting 08/10/2021 until 09/09/2022 End: 06-20-2023 US KIDNEY/BLADDER US KIDNEY/BLADDER Radiology Routine Proteinuria, unspecified type 1 Occurrences starting 05/21/2022 until 06/20/2023 [facility] Work Phone: Comment on above: 1 Occurrences starting 05/21/2022 until 06/20/2023 [facility] Immunizations Immunization Date Immunization Notes Care Provider Norma robles 11-17-2015 tetanus toxoid, reduced diphtheria toxoid, and acellular pertussis vaccine, adsorbed Huan Cowan [facility] 02-07-2015 influenza virus vaccine, unspecified formulation Huan Cowan [facility] 02-07-2015 influenza, seasonal, injectable Salome Aguillon APRN.CNP Work Phone: [facility] NEGATED: Highlighted row has not occurred!01-09-2023 influenza virus vaccine, unspecified formulation Huan Cowan [facility] Payers Date Payer Category Payer Private Health Insurance [id number] 2023 Blue Cross Blue Shie [facility] [id number]. 2022 Blue Cross Blue Shield 1.2.8 [id number]..2022 Self-pay [id number] 2022 Blue Cross Blue Shield [id number] 2021 Unknown [id number] 2021 Private Health Insurance [id number] 2020 Unknown [facility] [id number] [place] [address] [facility] [place] [address] [id number]. [id number] 2020 Unknown [id number] 1.13.159. [id number] 2020 Worker's Compensation 1.2.84 [id number]. [id number] 2020 Unknown [id number] 2020 Unknown [id number] 1.2.840.486451.1.13.239. 2.7.3.395026.315 2020 Private Health Insurance [id number] [id number]. 2.7.3.551935.315 2019 Private Health Insurance [id number] .[id number]. [id number] 1972 Unknown [id number] 2.16.840.1.929701.3.579. 2.175 1972 Unknown [id number] 2.16.840.1.677664.3.579. 2.593 1972 Unknown [id number] 2.16.840.1.852962.3.579. 2.727 1972 Unknown [id number] 2.16.840.1.981272.3.579. 2.727 1972 Unknown [id number] 2.16.840.1.898494.3.579. 2.727 1972 Unknown [id number] 2.16.840.1.187925.3.579. 2.727 1972 Unknown [id number] 2.16.840.1.660304.3.579. 2.727 1972 Unknown [id number] 2.16.840.1.400174.3.579. 2.1245 1972 Unknown [id number] 2.16.840.1.626011.3.579. 2.1245 1972 Unknown [id number] 2.16840.1.916227.3.579. 2.124 1972 Unknown [id number] 2.16840.1.453170.3.579. 2.196 1972 Unknown [id number] 2.840.1.491610.3.579. 2.196 1972 Unknown [id number] 2.16840.1.366301.3.579. 2.196 1972 Unknown [id number] 2.16840.1.591415.3.579. 2.196 1972 Unknown [id number] 2.840.1.663704.3.579. 2.9 1972 Unknown [id number] 2.840.1.614043.3.579. 2.1258 1972 Unknown [id number] 2.16840.1.910416.3.579. 2.1258 1972 Unknown [id number] 2.16840.1.328388.3.579. 2.1258 1972 Unknown [id number] 2.16840.1.912587.3.579. 2.1258 1972 Unknown [id number] 2.16840.1.066992.3.579. 2.1258 1972 Unknown [id number] 2.16840.1.151514.3.579. 2.718 1959 Unknown [id number] Private Health Insurance [facility] [id number] Unknown [id number] 2.16.840.1.911234.3.579. 2.531 Unknown [id number] 2.16.840.1.154736.3.579. 2.531 Social History Date Type Detail Facility Start: 08-02-2020 End: 10-28-2024 Tobacco smoking status NHIS Never smoker [facility] Comment on above: denies current use Start: 08-02-2020 End: 12-06-2022 Tobacco use and exposure Never used [employer] Start: 08-02-2020 End: 07-14-2024 Alcohol intake Ex-drinker (finding) [employer] Phone: Start: 1970 Sex Assigned At Not on file [employer] Phone: Start: 11-14-2019 End: 05-12-2024 Exposure to SARS-CoV-2 (event) Not sure [employer] Start: 03-30-2021 End: 04-20-2024 Alcohol intake Current drinker of alcohol (finding) [facility] Start: 08-06-2020 End: 08-20-2022 History SDOH Alcohol Frequency 1 [facility] Start: 08-06-2020 End: 08-20-2022 History SDOH Alcohol Std Drinks 98 [facility] Start: 10-08-2014 History SDOH Alcohol Comment Rare [facility] Start: 08-06-2020 End: 08-20-2022 History SDOH Social Connections Phone 5 [facility] Start: 08-06-2020 End: 08-20-2022 History SDOH Social Connections Get Together 2 [facility] Start: 08-06-2020 End: 08-20-2022 History SDOH Physical Activity MPS 3 [facility] Start: 08-06-2020 Education 15 [facility] Tobacco [facility] Comment on above: denies current use Start: 11-23-2019 End: 07-14-2024 Sex Assigned At Male [facility] Start: 1970 Sex Assigned At Male [facility] Tobacco smoking status No Smokin g Status Entered [facility] Start: 01-31-2022 End: 02-10-2022 Exposure to SARS-CoV-2 (event) Unable to assess [facility] Start: 08-20-2022 History SDOH Alcohol Std Drinks 0 [facility] Start: 08-20-2022 History SDOH Physica l Activity DPW 4 [facility] Start: 11-23-2019 End: 07-14-2024 History of Social function [facility] Start: 02-14-2021 Gender identity Identifies as male gender (finding) [facility] Start: 02-14-2021 Sexual orientation Heterosexual (javan eason) [facility] Do you belong to any clubs or organizations such as nondenominational groups, unions, fraternal or athletic groups, or school groups? No [facility] Are you now , , , , never or living with a partner? [facility] How often to you hav e a drink containing alcohol? Never [facility] How many standard dr inks containing alcohol do you have on a typical day? Patient refused [facility] Comment on above: denies current use Do you feel stress - tense, restless, nervous, or anxious, or unable to sleep at night because your mind is troubled all the time - these days [OSQ] Only a little [facility] (I/We) worried nelia er (my/our) food would run out before (I/we) got money to buy more. Never true [facility] Start: 03-06-2023 Alcohol Comment rarely ; caffe ine intake: 1-2 cups per day coffee, soda/pop [facility] Start: 04-17-2024 Sex Patient sex un known (finding) [facility] Do you feel stress - tense, restless, nervous, or anxious, or unable to sleep at night because your mind is troubled all the time - these days [OSQ] Not at all [facility] Tobacco smoking stat us NHIS Tobacco smoking consumption unknown [facility] Work Phone: Sex Male (finding) [facility] Medical Equipment Procedure Code Equipment Code Equipment Origin al Text Equipment Identifier Dates [id number] FDA Start: 08-23-2021 Goals Date Patient Goal Desired Activity /State Clinical Notes 01-07-2020 to 11-12-2024 Huan Cowan, - 07/14/2024 3:45 PM Agapito Garsia MD - 05/12/2024 2:15 PM Santo Welch MD - 04/20/2024 2:30 PM Boni Short RT(R) - 04/20/2024 1:30 PM EST Note Date & Type Note Facility 11-12-2024 Note SUBJECTIVE: Chief complaint: Chronic back pain, history [...] extends across low back as well as intermediate down his buttocks. Somewhat better with rest. [...] as a result of that. No previous residential caregiver. Did do physical therapy a few years ago, made symptoms worse. Previously had been following with pain management, Dr. Pena in [place], and has had injections and ablations with very limited relief. He had also been taking Pearblossom once or twice per day per pain management. However, he states that despite calling pain management ahead of time for refills, refills were not provided in time and he ran out of medications several times. Once, he ended up taking one of his 's tramadol due to the severity of his symptoms. His urine drug screen was then positive and he was subsequently discharged from the practice. He did recently see pain management at [facility]. He states that they felt that the injections were too risky given his history of infection. Has also tried other interventions, including stretching, which helps temporarily; heat and ice, which worsen pain. He has also tried baclofen and Tylenol without improvement. He cannot take NSAIDs due to concurrent use of warfarin for his mechanical heart valve. [...] He follows with the anticoagulation clinic at [facility]. Was seen in hospital in [...] readmitted on 09/02/2023 with a pericardial effusion and on 09/03/2023, underwent pericardiocentesis and placement of pericardial [...] (one) time each day at the same estrellita (more content not included)... [facility] 10-21-2024 Note SUBJECTIVE: Chief complaint: Chronic back pain, history [...] the day, though varies in intensity- like a medicine ball pushing on my back. Notes that pain is above his coccyx though also extends across low back as well as intermediate down his buttocks. Somewhat better with rest. [...] as a result of that. No previous residential caregiver. Did do physical therapy a few years ago, made symptoms worse. Previously had been following with pain management, Dr. Pena in [place], and has had injections and ablations with very limited relief. He had also been taking Pearblossom once or twice per day per pain management. However, he states that despite calling pain management ahead of time for refills, refills were not provided in time and he ran out of medications several times. Once, he ended up taking one of his 's tramadol due to the severity of his symptoms. His urine drug screen was then positive and he was subsequently discharged from the practice. Has also tried other interventions, including stretching, which helps temporarily; heat and ice, which worsen pain. He has also tried baclofen and Tylenol without improvement. He cannot take NSAIDs due to concurrent use of warfarin for his mechanical heart valve. [...] He follows with the anticoagulation clinic at [facility]. Was seen in hospital in [...] readmitted on 09/02/2023 with a pericardial effusion and on 09/03/2023, underwent pericardiocentesis and placement of pericardial [...] , Rfl: dapagliflozin propanediol (Farxiga) 10 mg, (more content not included)... [facility] 10-05-2024 Note Reviewed MRI lumbar spine completed recently with Dr. Rincon. Note stable appearance of small intrathecal lesion, which likely represents schwannoma. Disc degeneration with Modic changes at L5-S1. Dr. Rincon would suggest repeating MRI lumbar with and without contrast in about another year. Would likely do yearly for another few years and then every other year. He would likely follow-up for at least 5 years. Will work on arranging follow-up appointment in clinic with patient to discuss. [facility] 07-14-2024 History of Present illness Narrative Images from the original note were not included. @ENCDATE@ Nehal Karissa Baig is a 53 y.o. male who presents for Pain of the Left Shoulder HPI: History of Present Illness The patient is a 53-year-old male who presents today for follow-up on his left shoulder. 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 He had a consultation with shoulder specialist, Dr. Salgado at the [facility] on 04/20/2024. Aspiration of the shoulder was performed, and cultures were negative. He then had a consultation with shoulder specialist, Dr. Garsia, at [facility] on 05/12/2024. A CT arthrogram of the shoulder was performed on 05/27/2024. The images are not available for review today, but the report indicates that the prosthesis is intact and that the cuff appears to be grossly intact. I reviewed both consultants' notes in [facility]. He reports experiencing shoulder discomfort approximately twice a week, with the frequency and intensity varying depending on his activities. Increased physical activity, such as lifting or pulling objects like a lawnmower, tends to exacerbate the discomfort. He typically sleeps on his back using a wedge pillow due to his CPAP machine but occasionally lies on his left side for short periods before it becomes uncomfortable. No feelings of instability with the shoulder. The patient was seen at [place] at the end of May 2024 due to chest pain. He suspected fluid buildup as his weight was slowly increasing, accompanied by pressure and pain in his chest. [place] identified an erratic EKG and transferred him to [place], where he stayed for about 48 hours. He recently followed up with his bung driver, who suspects an electrical problem causing the erratic EKG. He is trying to avoid having a defibrillator installed. SUBJECTIVE: MEDICATIONS: Current Outpatient Medications Medication Instructions acetaminophen (Tylenol) 325 MG tablet Every 4 hours aspirin 81 MG EC tablet Every 24 hours baclofen (LIORESAL) 20 mg, 3 times daily cholecalciferol (Vitamin D-3) 50 MCG (1999) capsule 1 capsule cyanocobalamin (VITAMIN B-12) 1,000 mcg, Daily RT ezetimibe (ZETIA) 10 mg, Daily RT Farxiga 10 mg, Daily furosemide (LASIX) 40 mg, Every other day metoprolol succinate XL (TOPROL-XL) 25 mg, Nightly Multiple Vitamin (Multi-Vitamin) tablet 1 tablet, Daily RT omeprazole (PriLOSEC) [address] capsule potassium chloride CR (Klor-Con M20) 20 MEQ ER tablet 20 mEq, Every morning spironolactone (ALDACTONE) 25 mg, Once valsartan (Diovan) 40 MG tablet warfarin (Coumadin) 5 MG tablet ALLERGIES: Allergies Allergen Reactions Atorvastatin Other Reaction(s): Other Myalgias Statins SURGICAL HISTORY: Past Surgical History: Procedure Laterality Date ACHILLES TENDON SURGERY 03/23 AORTIC VALVE REPLACEMENT 2023 Vela CARPAL TUNNEL RELEASE 2020 TOTAL SHOULDER ARTHROPLASTY [...] Drug use: Never Depression: Not at risk (04/20/2024) Received from [facility] PHQ-2 PHQ-2 score: 0 REVIEW OF SYMPTOMS: Review of Systems The review of systems, history and current medications list are all reviewed today. OBJECTIVE: Visit Vitals Ht 5' 11 Wt 360 lb BMI 50.21 kg/m Smoking Status Never BSA 2.86 m Physical Exam Alert and oriented, no acute distress. Mood and affect are appropriate. Ambulating independently. Gait is nonantalgic. CERVICAL SPINE The patient has well-maintained flexion and extension, rotation and side-bending and range of motion does not produce any symptoms into the shoulder. Negative Spurling's. Chronic swelling to the left upper extremity appearance consistent with lymphedema, unchanged in appearance Left Shoulder: - Internal rotation to T12. - Raises arm overhead and actively abducts to 90 - Passive forward elevation 160 degrees, abduction 90, external rotation 90. No weakness with forward flexion, external rotation, belly press. - no instability RIGHT SHOULDER The skin is warm, dry, and intact. There is no swelling, atrophy, or deformity. The patient can raise the arm overhead. Full forward elevation, abduction, internal and external rotation. No weakness with internal and external rotation, resisted supination, or forward flexion. Negative Terrell's. Negative Neer/Shine impingement. No tenderness over the AC joint. Negative cross-arm adduction. Negative Speed's and Yergason's. No instability. IR T10. Ortho Exam Results ASSESSMENT AND PLAN: I reviewed the history, physical exam, diagnostic studies, and diagnosis with the patient. Assessment & Plan 1. Left shoulder pain s/p left anatomic TSA 2021 A suprascapular nerve block was recommended as a potential treatment option to alleviate discomfort. This minimally invasive procedure could help manage pain without compromising shoulder function. A referral to Dr. Zaidi for this procedure will be arranged. Monitor symptoms and avoid activities that may exacerbate the condition. Follow-up: Check back after the nerve block procedure to assess its effectiveness and discuss further management options. A total of 20 to 29 minutes was spent on this patient encounter which included chart review, check in, nurse triage, history taking, physical examination, diagnostic study review, patient counseling and discussion, entering information into the patient's medical record, and coordinating patient care There are no diagnoses linked to this encounter. Huan Cowan D.O. Attestation This note was created using voice recognition through [email or web address] artificial intelligence. documented in this encounter [facility] 07-08-2024 Note [facility] Cardiology Clinic Note Chief Complaint: Patient here for follow up [facility] for chest pain, fatigue Patient states he is feeling ok. Patient states he still gets the occasional chest pain, chest pain feels like a pressure, comes and goes last about an hour. Patient states he has been sweating quite a bit due to possible withdrawals of his pain medications. Patient state he doesn't thinking he is taking the Ezetimibe at this time. HPI: Nehal Baig is a 53 y.o. male With a history of aortic valve regurgitation s/p aortic valve replacement here in routine follow-up. Describes musculoskeletal chest pain No worsening shortness of breath No fevers or chills UPDATE 04/27/2024 Doing well; no new cardiac symptoms Cardiology ROS: Review of Systems Constitutional: Negative. Cardiovascular: Positive for chest pain, dyspnea on exertion (improving) and leg swelling ( not bad , resolves by morning). Past Medical History He has a past medical history of Abnormal ECG, Bacteremia, Bacterial endocarditis, COPD (chronic obstructive pulmonary disease) (CMS/HCC), Dyslipidemia, Hepatic steatosis, Left carotid stenosis, Pre-diabetes, Pulmonary nodules, Sleep apnea, Sleep apnea, and TIA (transient ischemic attack) (2019). Surgical History He has a past surgical history that includes Total shoulder arthroplasty (Left); Carpal tunnel release (Bilateral, 2020); Achilles tendon surgery (Left); Colonoscopy w/ polypectomy (2021); Aortic valve replacement (06/26/2023); and Pericardiocentesis (09/03/2023). Social History He reports that he has never smoked. He has never been exposed to tobacco smoke. He has never used smokeless tobacco. He reports that he does not currently use alcohol. He reports that he does not use drugs. Family History Family History Problem Relation Name Age of Onset Lung cancer Mother Epididymitis Father Allergies Atorvastatin Medications Current Outpatient Medications: colchicine 0.6 mg tablet, Take 0.6 mg by mouth in the morning., Disp: , Rfl: ezetimibe (Zetia) 10 mg tablet, Take 10 mg by mouth in the morning., Disp: , Rfl: HYDROcodone-acetaminophen (Pearblossom) 7.5-325 mg tablet, Take 1 tablet by mouth every 12 (twelve) hours if needed., Disp: , Rfl: valsartan (Diovan) 40 mg tablet, Take 40 mg by mouth in the morning., Disp: , Rfl: aspirin 81 mg EC tablet, Take 81 mg by mouth in the morning., Disp: , Rfl: baclofen (Lioresal) 20 mg tablet, Take 20 mg by mouth in the morning, afternoon, and at bedtime., Disp: , Rfl: cholecalciferol, vitamin D3, 50 mcg (2,000 unit) capsule, 1 capsule 1 (one) time each day at the same time., Disp: , Rfl: cyanocobalamin (Vitamin B-12) 1,000 mcg tablet, Take 1,000 mcg by mouth in the morning., Disp: , Rfl: dapagliflozin propanediol (Farxiga) 10 mg, Take 1 tablet (10 mg) by mouth once daily as directed., Disp: 90 tablet, Rfl: 3 furosemide (Lasix) 20 mg tablet, Take 1 tablet (20 mg) by mouth in the morning., Disp: 90 tablet, Rfl: 3 gabapentin (Neurontin) 400 mg capsule, Take 400 mg by mouth two times daily. Pt takes at noon, Disp: , Rfl: metoprolol succinate XL (Toprol-XL) 25 mg 24 hr tablet, Take 1 tablet (25 mg) by mouth in the morning., Disp: 90 tablet, Rfl: 3 multivitamin tablet, Take 1 tablet by mouth in the morning., Disp: , Rfl: omeprazole (PriLOSEC) [address] capsule, TAKE 1 CAPSULE (40 MG) BY MOUTH BEFORE BREAKFAST, Disp: 30 capsule, Rfl: 6 spironolactone (Aldactone) 25 mg tablet, Take 1 tablet (25 mg) by mouth once daily as directed., Disp: 90 tablet, Rfl: 3 Last Recorded Vitals BP 114/79 (BP Location: Right arm, Patient Position: Sitting) Pulse 79 Ht 1.854 m (6' 1 ) Wt (!) 164 kg (362 lb) SpO2 94% BMI 47.76 kg/m??? Physical Examination: GENERAL: alert and oriented x3, well developed, in no acute distress. HEAD: atraumatic, normocephalic. EYES: ELISHA, EOMI. NECK: trachea midline, no JVD present, no carotid bruits present. CARDIAC: S1, S2 present. RRR. +VE Metallic click No murmur, rubs, or gallops. RESPIRATORY: CTAB, no increased effort of breathing, no rales, rhonchi, or wheezing. ABDOMEN: soft, nontender, nondistended. EXTREMITIES: no lower extremity edema, peripheral pulses are 2+ bilaterally. No rash/skin discoloration present. NEURO: strength/sensation equal and symmetric in bilateral upper and lower extremities. PSYCH: appropriate mood, affect, and judgement. INVESTIGATIONS: Echocardiogram 10/24/2023: Conclusion: Global left ventricular systolic function is difficult to assess but appears preserved; visually estimated ejection fraction is 55 to 60% Normal right ventricular size and systolic function A bioprosthetic aortic valve is seen No significant pericardial effusion is seen A limited echocardiogram was performed Transesophageal Echocardiogram-[facility] Name: NEHAL BAIG Study Date: 06/21/2023 11:02 AM B/P: 158 mmHg/68 mmHg HR: (more content not included)... [facility] 06-26-2024 Note Pharmacy Consult for Warfarin (Coumadin) Management - Daily Progress Note Nehal Baig is a 53 y.o. male admitted for Chest pain. Pharmacy was consulted warfarin dosing and monitoring for On-X Mechanical Aortic Valve with goal INR 1.5-2. Patient has a past medical history of Abnormal ECG, Bacteremia, Bacterial endocarditis, COPD (chronic obstructive pulmonary disease) (CMS/HCC), Dyslipidemia, Hepatic steatosis, Left carotid stenosis, Pre-diabetes, Pulmonary nodules, Sleep apnea, Sleep apnea, and TIA (transient ischemic attack) (2019). Home Regimen Sat THR SAT SAT SUN Dose 5 mg 7.5 mg 5 mg 7.5 mg 5 mg 5 mg 7.5 mg Source: [facility] Labs INR Results from last 7 days Lab Units 06/26/24 1442 06/25/24 1430 PROTIME Seconds 21.7* 19.7* INR 1.92* 1.70* Hgb/Hct/Plt: Results from last 7 days Lab Units 06/26/24 0410 06/25/24 1431 HEMOGLOBIN g/dL 15.5 -- HEMATOCRIT % 46.6 -- PLATELETS AUTO 10*3/uL 197 225 Warfarin Therapy Current regimen: Dose per INR Bridging: Not indicated due to patient being therapeutic Interacting medications: Acetaminophen, pantoprazole Dosing History During Current Admission Date INR Dose (mg) 06/25 1.70 7.5mg 06/26 1.92 See plan Assessment and Plan Patient's INR today 1.92 is Therapeutic. Hemoglobin/hematocrit/platelet stable. Give warfarin 5mg today. Patient will likely be able to resume home regimen if no other interacting medications are started inpatient. Monitor for s/sx of bleeding including epistaxis, hematuria, unusual bruising, hemoptysis, hematochezia as well as s/sx of stroke including impaired speech, unilateral paralysis, blurry vision. Pharmacy will continue to monitor the patient and adjust therapy as needed. Thanks for the consult. Emilee AustinD, 06/26/24 [facility] 06-26-2024 Note Hospital Medicine Discharge Summary Final Discharge Diagnosis: Chest pain, atypical Severe aortic valve insufficiency s/p Mechanical AVR, 25 mm On-X on 06/26/23 Chronic heart failure with reduced ejection fraction, EF 35%, NYHAII Moderate mitral regurgitation Warfarin anticoagulation, INR goal 1.5-2.0, managed by [facility] Primary hypertension Mixed hyperlipidemia--intolerant atorvastatin (myalgias) History of pericardial effusion s/p pericardiocentesis Admission Diagnosis: Chest pain [R07.9] Hospital course: 53-year-old male with past medical history significant for aortic insufficiency status post mechanical aortic valve replacement June 26, 2023, HFpEF, history of pericardial effusion status post pericardiocentesis. Patient initially presented to [facility] due to chest pain and abnormal EKG, his chest pain is at rest and not related to exertion with no radiation. EKG was showing T wave inversions anterolaterally and inferiorly. High sensitive troponins were negative. Cardiology were consulted and the patient was sent to [facility] for further evaluation given his complicated cardiac history. Patient was admitted to the telemetry floor, high-sensitivity troponin were trended and theyremain negative. Patient had an echocardiogram done which was showing an EF of 35%, discussed with cardiology at the bedside, patient had prior echocardiogram showing low EF then he had another echocardiogram done after that with not optimal pictures showing preserved EF. They are recommended Treadmill stress myocardial perfusion for further evaluation which can also help us with ventriculogram. stress test Results as follows: Negative perfusion stress test for ischemia Normal myocardial perfusion with soft tissue artifact, Normal global left ventricular function with EF 64% No transient ischemia dilatation Negative treadmill EKG stress test for ischemia The Montero Score 6 consistent with low risk estimates an annual cardiovascular mortality of 0% and a five year survival of 95% Using the Montero Score there is a low probability of any angiographic coronary disease. Cardiology recommended for the patient to get cardiac MRI and recommended that to be done as an outpatient. Discussed with cardiology on the day of discharge, no further interventions or new recommendations from their standpoint. Results of the stress test discussed with the patient on the day of the discharge. Patient is being discharged home in stable condition on 06/18/2024. Surgical, Invasive or Diagnostic Procedures Done During Admission: None Consultations During Admission: Cardiology Dear MD Марина, Nehal is advised to follow up with you within 1-2 weeks. Items to follow up in ambulatory setting: Cardiac MRI Follow-up with: Cardiology Scheduled appointments: Future Appointments Date Time Provider Department Center 07/08/2024 9:45 AM Zina Carter MD [facility] Your medication list CONTINUE taking these medications Instructions Last Dose Given Next Dose Due aspirin 81 mg EC tablet baclofen 20 mg tablet Commonly known as: Lioresal cholecalciferol (vitamin D3) 50 mcg (2,000 unit) capsule cyanocobalamin 1,000 mcg tablet Commonly known as: Vitamin B-12 dapagliflozin propanediol 10 mg Commonly known as: Farxiga Take 1 tablet (10 mg) by mouth once daily as directed. furosemide 20 mg tablet Commonly known as: Lasix Take 1 tablet (20 mg) by mouth in the morning. gabapentin 400 mg capsule Commonly known as: Neurontin metoprolol succinate XL 25 mg 24 hr tablet Commonly known as: Toprol-XL Take 1 tablet (25 mg) by mouth in the morning. multivitamin tablet omeprazole [address] capsule Commonly known as: PriLOSEC TAKE 1 CAPSULE (40 MG) BY MOUTH BEFORE BREAKFAST spironolactone 25 mg tablet Commonly known as: Aldactone Take 1 tablet (25 mg) by mouth once daily as directed. STOP taking these medications valsartan 40 mg tablet Commonly known as: Sam Roberto is allergic to atorvastatin. Disposition: Home or Self Care () Discharge Condition: Stable Code Status: Full Code Diagnostic Results Hematology: Results from last 7 days Lab Units 06/26/24 0410 06/25/24 1431 06/25/24 1430 CRP mg/L -- -- <5.4 WBC AUTO 10*3/uL 9.81 -- -- HEMOGLOBIN g/dL 15.5 -- -- HEMATOCRIT % 46.6 -- -- MCV fL 82.5 -- -- PLATELETS AUTO 10*3/uL 197 225 -- INR -- -- 1.70* Chemistry: Results from last 7 days Lab Units 06/26/24 0410 SODIUM mmol/L 134* POTASSIUM mmol/L 4.3 CHLORIDE mmol/L 102 CO2 mmol/L 27 BUN mg/dL 23 CREATININE mg/dL 0.83 GLUCOSE mg/dL 103* CALCIUM mg/dL 8.8 Results from last 7 days Lab Units 06/26/24 0410 AST U/L 12* ALT U/L 12 ALK PHOS U/L 59 BILIRUBIN TOTAL mg/dL 0.6 Test Results Pending At Discharge: Pending Labs Order Current Status High Sensitivity Troponin I Collected (06/26/24 1443) High Sensitivity Troponin I In process Lipid panel (more content not included)... [facility] 06-26-2024 Note Attestation signed by Elder Morales MD at 06/26/2024 3:24 PM By using the attestations below, the signing clinician agrees that I have read and verify that the documentation has been personally reviewed by me and ensure that the documentation accurately reflects the encounter. GC: I performed the nash portion(s) of the service and participated in the management and confirm the resident's documentation. Please note there may be an additional personal documentation from me. Cardiology Progress Note Subjective Subjective: Patient was seen and examined. Reported feeling better. No severe chest pain, or shortness of breath. No abdominal pain, nausea, or vomiting. No orthopnea or paroxysmal nocturnal dyspnea. No lower leg swelling. No acute events overnight. Objective Current Facility-Administered Medications: acetaminophen (Tylenol) tablet 650 mg, 650 mg, oral, q6h PRN, Mauri Koch MD baclofen (Lioresal) tablet 20 mg, 20 mg, oral, TID, Mauri Koch MD, 20 mg at 06/26/24 0824 cholecalciferol (Vitamin D-3) tablet 2,000 Units, 2,000 Units, oral, Daily, Mauri Koch MD cyanocobalamin (Vitamin B-12) tablet 1,000 mcg, 1,000 mcg, oral, Daily, Mauri Koch MD dapagliflozin propanediol (Farxiga) tablet 10 mg, 10 mg, oral, Once Daily, Mauri Koch MD, 10 mg at 06/26/24 0825 furosemide (Lasix) tablet 20 mg, 20 mg, oral, Daily, Mauri Koch MD, 20 mg at 06/26/24 0824 gabapentin (Neurontin) capsule 400 mg, 400 mg, oral, BID, Mauri Koch MD, 400 mg at 06/26/24 0829 metoprolol succinate XL (Toprol-XL) 24 hr tablet 25 mg, 25 mg, oral, Daily, Mauri Koch MD, 25 mg at 06/25/24 2200 morphine injection 2 mg, 2 mg, intravenous, q6h PRN, Mauri Koch MD multivitamin with folic acid 400 mcg tablet 1 tablet, 1 tablet, oral, Daily, Mauri Koch MD, 1 tablet at 06/26/24 0824 nitroglycerin (Nitrostat) SL tablet 0.4 mg, 0.4 mg, sublingual, q5 min PRN, Chandu Vaughan MD pantoprazole (ProtoNix) EC tablet 40 mg, 40 mg, oral, Daily, Mauri Koch MD, 40 mg at 06/25/24 2200 regadenoson (Lexiscan) injection 0.4 mg, 0.4 mg, intravenous, Once, Laureen Phan CNP Insert peripheral IV, , , Once AND Saline lock IV, , , Once AND sodium chloride flush 10 mL, 10 mL, intravenous, q8h PRN, Mauri Koch MD spironolactone (Aldactone) tablet 25 mg, 25 mg, oral, Once Daily, Mauri Koch MD, 25 mg at 06/26/24 0825 valsartan (Diovan) tablet 40 mg, 40 mg, oral, Daily, Mauri Koch MD warfarin dosing placeholder, 1 each, Does not apply, RX Placeholder, Chandu Vaughan MD Objective: Patient Vitals for the past 24 hrs: BP Temp Temp src Pulse Resp SpO2 Height Weight 06/26/24 0824 118/69 36.4 ???C (97.5 ???F) Temporal 79 17 97 % -- -- 06/26/24 0449 -- -- -- -- -- -- -- (!) 163 kg (359 lb 6.4 oz) 06/26/24 0415 104/77 36.3 ???C (97.3 ???F) Temporal 70 21 92 % -- -- 06/26/24 0045 (!) 143/95 36.2 ???C (97.2 ???F) Temporal 62 13 95 % -- -- 06/25/24 2132 128/86 -- -- 69 21 91 % -- -- 06/25/241999 113/73 36.4 ???C (97.5 ???F) Temporal 80 17 96 % -- -- 06/25/24 1651 128/87 36.2 ???C (97.2 ???F) Temporal 74 22 95 % -- -- 06/25/24 1245 -- -- -- -- -- -- 1.854 m (6' 1 ) -- 06/25/24 1241 -- -- -- -- -- -- -- (!) 162 kg (357 lb 3.2 oz) 06/25/24 1221 129/77 36.3 ???C (97.3 ???F) Temporal 70 15 97 % -- -- Physical Examination: Physical Exam Constitutional: General: He is not in acute distress. Appearance: He is not ill-appearing. HENT: Head: Normocephalic and atraumatic. Cardiovascular: Rate and Rhythm: Normal rate and regular rhythm. Heart sounds: Normal heart sounds. No murmur heard. Pulmonary: Effort: No respiratory distress. Breath sounds: Normal breath sounds. No wheezing or rales. Abdominal: Palpations: Abdomen is soft. Tenderness: There is no abdominal tenderness. Musculoskeletal: Cervical back: Normal range of motion and neck supple. Right lower leg: No edema. Left lower leg: No edema. Skin: General: Skin is warm and dry. Capillary Refill: Capillary refill takes less than 2 seconds. Neurological: Mental Status: He is alert and oriented to person, place, and time. Mental status is at baseline. Relevant Lab Results Encounter Date: 06/25/24 ECG 12 lead Result Value Ventricular Rate 69 Atrial Rate 69 NV Interval 148 QRS DURATION 92 QT Interval 352 QTC CALCULATION(BAZETT) 377 P [place] 22 R-[place] 44 T Wave [place] 231 Impression Normal sinus rhythm ST & T wave abnormality, consider inferolateral ischemia Abnormal ECG When compared with ECG of 25-JUN-2024 15:41, (unconfirmed) T wave inversion more evident in Anterior leads Lab Results Component Value Date CKTOTAL 57.0 06/25/2024 Complete Echo (TTE) w/wo Imaging Agent, Strain, 3D, Bubble Stud (more content not included)... [facility] 06-25-2024 Note Pharmacy Consult for Warfarin (Coumadin) Management - Daily Progress Note Nehal Baig is a 53 y.o. male admitted for Chest pain. Pharmacy was consulted warfarin dosing and monitoring for On-X Mechanical Aortic Valve with goal INR 1.5-2.0 . Patient has a past medical history of Abnormal ECG, Bacteremia, Bacterial endocarditis, COPD (chronic obstructive pulmonary disease) (CMS/HCC), Dyslipidemia, Hepatic steatosis, Left carotid stenosis, Pre-diabetes, Pulmonary nodules, Sleep apnea, Sleep apnea, and TIA (transient ischemic attack) (2019). - INR goal updated per Cardiology Home Regimen Sat THR SAT SAT SUN Dose 5 mg 7.5 mg 5 mg 7.5 mg 5 mg 5 mg 7.5 mg Source: [facility] Labs INR Results from last 7 days Lab Units 06/25/24 1430 PROTIME Seconds 19.7* INR 1.70* Warfarin Therapy Current regimen: dose per INR Bridging: N/A Interacting medications: APAP, pantoprazole Dosing History During Current Admission Date INR Dose (mg) 06/25 1.70 See Plan Assessment and Plan Patient's INR today 1.70 is Therapeutic. Hemoglobin/hematocrit/platelet stable. Give warfarin 7.5 mg today. Clarified with Cardiology that the goal INR range for this patient is 1.5-2.0 due to having On-X valve. Cardiology originally considered pursuing cath however has since decided against it. Patient's INR is at goal. Monitor for s/sx of bleeding including epistaxis, hematuria, unusual bruising, hemoptysis, hematochezia as well as s/sx of stroke including impaired speech, unilateral paralysis, blurry vision. Pharmacy will continue to monitor the patient and adjust therapy as needed. Thanks for the consult. Gaurav Archuleta, PharmD, 06/25/24 [facility] 06-25-2024 Note This report has been cancelled. [facility] 06-25-2024 Note EKG from the [facility] ER showed asymmetric ST depressions in inferior [...] more than a week for continue monitoring [facility] 06-25-2024 Note ongoing low guidelin e directed medical therapy including ARB Farxiga Aldactone monitor intake output fluid status [facility] 06-25-2024 Note Resume home setting of CPAP [facility] 06-25-2024 Note Clinical examination does not reveal evidence of pericardial effusion normal tympany over the chest wall no signs of tamponade we will get an echocardiogram to evaluate and follow [place] [facility] 06-25-2024 Note Continue meds [facility] 06-25-2024 Note 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 IF I DO NOT RESPOND WITHIN 20 MINUTES OR URGENT MATTERS, PLEASE CALL THROUGH THE DIRECTOR OF THERAPY SERVICES. FROM 7PM-7AM, PLEASE PAGE [phone](COVR). Chief Complaint No chief complaint on file. History of Present Illness Nehal Baig is an 53 y.o. male admitted from [facility] where he presented with almost a week history of chest pain described by him as anterior chest wall pain dull at times sharp with movement and exertion nonradiating associated with some diaphoresis at time but no other symptoms. He denies any injury or trauma he denies dyspnea at rest shortness of breath with exertion PND orthopnea denies any dizziness syncope lightheadedness but has been feeling more fatigued. 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 Non-smoker no history of alcohol dependency. History of mechanical aortic valve replacement 6-food-like 2023 Review of System and Physical Exam Temp: [36.3 ???C (97.3 ???F)] 36.3 ???C (97.3 ???F) Heart Rate: [70] 70 Resp: [15] 15 BP: (129)/(77) 129/77 Physical Exam Vitals reviewed. Constitutional: Appearance: Normal [...] equal, round, and reactive to light. Neck: Comments: No JVD Cardiovascular: Rate and Rhythm: Normal rate and [...] and dry. Capillary Refill: Capillary refill takes 2 to 3 seconds. Neurological: General: No focal deficit present. Mental Status: He is alert. Mental status is at baseline. Psychiatric: Mood and Affect: Mood normal. Behavior: Behavior normal. Review of Systems Assessment and Plan Assessment & Plan Chest pain EKG from the [place] [facility] showed asymmetric ST depressions in inferior [...] more than a week for continue monitoring S/P AVR Status post mechanical AVR valve continue warfarin target INR between 2.5-3.5 JACOBY (obstructive sleep apnea) Resume home setting of CPAP Primary hypertension Continue meds Pericardial effusion Clinical examination does not reveal evidence of pericardial effusion normal tympany over the chest wall no signs of tamponade we will get an echocardiogram to evaluate and follow (HFpEF) heart failure with preserved ejection fraction (CMS/HCC) ongoing low guideline directed medical therapy including ARB Farxiga Aldactone monitor intake output fluid status VTE Prophylaxis: Warfarin ----- Focus of this inpatient stay will remain on problems that need acute care setting for care. We will review available studies and will order additional labs, imaging and other studies as appropriate. As needed medicines are ordered as appropriate. VTE Prophylaxis will be ordered as appropriate. Please see above for management plan for individual hospital problems. Home medications are reviewed and will be continued as appropriate. Patient will be continued to be followed during this hospital stay by a member of [facility]. Past Medical History Past Medical History: Diagnosis Date Abnormal ECG Bacteremia Bacterial endocarditis COPD (chronic obstructive pulmonary disease) (CMS/HCC) Dyslipidemia Hepatic steatosis Left carotid stenosis Pre-diabetes Pulmonary nodules Sleep apnea Sleep apnea TIA (transient ischemic attack) 2019 Past Surgical History Past Surgical History: Procedure Laterality Date ACHILLES TENDON SURGERY Left AORTIC VALVE REPLACEMENT 06/26/2023 mechanical CARPAL TUNNEL RELEASE Bilateral 2020 COLONOSCOPY W/ POLYPECTOMY 2021 PERICARDIOCENTESIS 09/03/2023 TOTAL SHOULDER ARTHROPLASTY Left Social History Social History Socioeconomic History Marital status: Spouse name: Not on file Number of children: Not on veda (more content not included)... [facility] 05-12-2024 History of Present illness Narrative Images [...] I did review outside records from the [facility] regarding his care as he is [...] Strain: Low Risk (09/02/2023) Received from [facility] Overall Financial Resource Strain (CARDIA) Difficulty of Paying Living Expenses: Not hard at all Food Insecurity: No Food Insecurity (09/02/2023) Received from [facility] Hunger Vital Sign Within the past 12 months, you worried that your food would run out before you got the money to buy more.: Never true Ran Out of Food in the Last Year: Not on file Transportation Needs: No Transportation Needs (09/02/2023) Received from [facility] Transportation In the past 12 months, has lack of transportation kept you from medical appointments or from getting medications?: No Lack of Transportation (Non-Medical): Not on file Physical Activity: Insufficiently Active (08/20/2022) Received from [facility] Exercise Vital Sign Days of Exercise per Week: 4 days Minutes of Exercise per Session: 30 min Stress: No Stress Concern Present (08/20/2022) Received from [facility] [facility] Occupational Health - Occupational Stress Questionnaire Feeling of Stress : Not at all Social Connections: Unknown (08/20/2022) Received from [facility] Social Connection and Isolation Panel [NHANES] Frequency of Communication with Friends and Family: More than three times a week Frequency of Social Gatherings with Friends and Family: Patient declined Attends Rastafari Services: Patient declined Active Member of Clubs or Organizations: No Attends Club or Organization Meetings: Never Marital Status: Intimate Partner Violence: Not At Risk (09/26/2023) Received from [facility] Humiliation, Afraid, Rape, and Kick questionnaire Fear of Current or Ex-Partner: No Emotionally Abused: No Physically Abused: No Sexually Abused: No Housing Stability: Low Risk (09/02/2023) Received from [facility] Housing Stability Vital Sign Unable to Pay for Housing in the Last Year: Not on file Number of Places Lived in the Last Year: Not on file In the last 12 months, was there a time when you did not have a steady place to sleep or slept in a retirement (including now)?: No CURRENT MEDICATIONS: No current [...] upper extremities. SILT throughout both upper extremities, median/radial/ulnar/musculocutaneo us/axillary nerve motor and sensory intact (except for [...] follow-up after the CT scan is done. [employer] P[employer] software was used to dictate this note, please be aware that minor errors in director of cardiac cath lab may be present. Kaylynn Garsia MD Cyber Security Manager Shoulder/Elbow Surgery [facility] VANESSA documented in this encounter [facility] Work Phone: 04-27-2024 Note [facility] Cardiology Clinic Note Chief Complaint: Patient here for 2 mo follow up HFpEF, aortic valve replacement, and hx of AV endocarditis and pericardial effusion. Had labs last week. Said his EGD/colonoscopy came out normal. Valsartan was stopped at last visit in Jan 2024 due to lightheadedness and hypotension. Says BP has been around 120/70 and lightheadedness has resolved. Denies bleeding on warfarin and palpitations. HPI: Nehal Baig is a 53 y.o. male With a history of aortic valve regurgitation s/p aortic valve replacement here in routine follow-up Describes musculoskeletal chest pain No worsening shortness of breath No fevers or chills UPDATE 04/27/2024 Doing well; no new cardiac symptoms Cardiology ROS: Review of Systems Constitutional: Positive for malaise/fatigue. Cardiovascular: Positive for chest pain, dyspnea on exertion (improving) and leg swelling ( not bad , resolves by morning). All other systems reviewed and are negative. Past Medical History He has a past medical history of Abnormal ECG, Bacteremia, Bacterial endocarditis, COPD (chronic obstructive pulmonary disease) (CMS/HCC), Dyslipidemia, Hepatic steatosis, Left carotid stenosis, Pre-diabetes, Pulmonary nodules, Sleep apnea, Sleep apnea, and TIA (transient ischemic attack) (2019). Surgical History He has a past surgical history that includes Total shoulder arthroplasty (Left); Carpal tunnel release (Bilateral, 2020); Achilles tendon surgery (Left); Colonoscopy w/ polypectomy (2021); Aortic valve replacement (06/26/2023); and Pericardiocentesis (09/03/2023). Social History He reports that he has never smoked. He has never been exposed to tobacco smoke. He has never used smokeless tobacco. He reports that he does not currently use alcohol. He reports that he does not use drugs. Family History Family History Problem Relation Name Age of Onset Lung cancer Mother Epididymitis Father Allergies Atorvastatin Medications Current Outpatient Medications: baclofen (Lioresal) 20 mg tablet, Take 20 mg by mouth in the morning, afternoon, and at bedtime., Disp: , Rfl: cholecalciferol, vitamin D3, 50 mcg (2,000 unit) capsule, 1 capsule 1 (one) time each day at the same time., Disp: , Rfl: dapagliflozin propanediol (Farxiga) 10 mg, Take 1 tablet (10 mg) by mouth once daily as directed., Disp: 90 tablet, Rfl: 3 furosemide (Lasix) 20 mg tablet, Take 1 tablet (20 mg) by mouth in the morning., Disp: 90 tablet, Rfl: 3 gabapentin (Neurontin) 400 mg capsule, Take 400 mg by mouth with lunch. Pt takes at noon, Disp: , Rfl: HYDROcodone-acetaminophen (Pearblossom) 7.5-325 mg tablet, 1 tablet every 8 (eight) hours if needed for severe pain (8-10 pain score)., Disp: , Rfl: metoprolol succinate XL (Toprol-XL) 25 mg 24 hr tablet, Take 1 tablet (25 mg) by mouth in the morning., Disp: 90 tablet, Rfl: 3 omeprazole (PriLOSEC) [address] capsule, TAKE 1 CAPSULE (40 MG) BY MOUTH BEFORE BREAKFAST, Disp: 30 capsule, Rfl: 6 spironolactone (Aldactone) 25 mg tablet, Take 1 tablet (25 mg) by mouth once daily as directed., Disp: 90 tablet, Rfl: 3 valsartan (Diovan) 40 mg tablet, Take 1 tablet (40 mg) by mouth in the morning. If systolic Blood pressure is less than 110, do not take medication. Do not start before September 07, 2023., Disp: 30 tablet, Rfl: 0 warfarin (Coumadin) 5 mg tablet, Take 5mg daily, or as directed by the anticoagulation service provider. Dose may change, based on INR results., Disp: 60 tablet, Rfl: 0 Last Recorded Vitals BP 134/86 (BP Location: Right wrist, Patient Position: Sitting) Pulse 82 Ht 1.854 m (6' 1 ) Wt (!) 164 kg (361 lb) SpO2 95% BMI 47.63 kg/m??? Physical Examination: GENERAL: alert and oriented x3, well developed, in no acute distress. HEAD: atraumatic, normocephalic. EYES: ELISHA, EOMI. NECK: trachea midline, no JVD present, no carotid bruits present. CARDIAC: S1, S2 present. RRR. +VE Metallic click No murmur, rubs, or gallops. RESPIRATORY: CTAB, no increased effort of breathing, no rales, rhonchi, or wheezing. ABDOMEN: soft, nontender, nondistended. EXTREMITIES: no lower extremity edema, peripheral pulses are 2+ bilaterally. No rash/skin discoloration present. NEURO: strength/sensation equal and symmetric in bilateral upper and lower extremities. PSYCH: appropriate mood, affect, and judgement. INVESTIGATIONS: Echocardiogram 10/24/2023: Conclusion: Global left ventricular systolic function is difficult to assess but appears preserved; visually estimated ejection fraction is 55 to 60% Normal right ventricular size and systolic function A bioprosthetic aortic valve is seen No significant pericardial effusion is seen A limited echocardiogram was performed [facility]ophageal Echocardiogram[facility] Name: NEHAL BAIG Study Date: 06/21/2023 11:02 AM B/P: 158 mmHg/68 mmHg HR: 102 bpm Date of : 1970 Location: [facility] (more content not included)... [facility] 04-20-2024 Note HNO ID: [id number] Author: SANTO SALGADO MD Service: ? Author Type: Physician Type: Progress Notes Filed: 04/20/2024 16:00 Note Text: Santo HernándezM.Sc. Cyber Security Manager of Orthopaedic Surgery at [place] [address] Office: [phone] Consult requested for an opinion regarding the evaluation and treatment of the above patient. My final impression and recommendations will be communicated back to the requesting physician by way of the shared medical record or letter via US mail. Patient info: Nehal Baig ([id number]) Service date: 04/20/2024 Referred by: DO Shashank Jeter [facility] [id number] PCP: RAD Aguillon Chief Complaint: Left shoulder pain. HPI:Nehal Baig is a 53 year old [id number] male who comes in for second opinion [...] for second opinion. 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 [facility] 04-20-2024 History of Present illness Narrative Associated Order(s): Large Joint Arthro/Inj: L shoulder joint Post-Procedure Diagnose(s): Elevated glucose; Infection of prosthetic joint, initial encounter (HCC); Nontraumatic tear of left rotator cuff, unspecified tear extent Images from the original note were not included. Santo HernándezM.Sc. Cyber Security Manager of Orthopaedic Surgery at [place] [address] Office: [phone] Consult requested for an opinion regarding the evaluation and treatment of the above patient. My final impression and recommendations will be communicated back to the requesting physician by way of the shared medical record or letter via US mail. Patient info: Nehal Baig ([id number]) Service date: 04/20/2024 Referred by: Huan Cowan DO [address] [place] [facility] [address] PCP: RAD Aguillon Chief Complaint: Left shoulder pain. HPI:Nehal Baig is a 53 year old [id number] male who comes in for second opinion [...] for second opinion. 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 Aspiration was performed today [...] shoulder joint Informed Consent Consent Obtained: Verbal Lemmon Protocol A moment to CARE was completed. [...] Plan of Care Visit completed when applicable Santo Salgado M.D. MMarinaM.Sc. Shoulder and Elbow Surgeon Orthopaedic Surgery Department [place], [place] [address] Tell: [phone] Appt:[phone] 04/20/2024 2:40 PM CC:Huan Cowan documented in this encounter [facility] 04-20-2024 History of Present illness Narrative [...] PATIENT PRESENTS WITH AN IMPLANTABLE OR ATTACHED FACILITY ATTENDANT: No RADIOLOGY DEPARTMENT: General X-ray: Exam(s) Completed: Upper Extremity X-Ray(s): Shoulder, AP / TRUE AP / AXILLARY left PERIPHERAL IV DATA: Not applicable SIGNED BY: RT Guillermina(Rosanna) April 20, 2024 2:03 PM documented in this encounter [facility] 04-20-2024 Note HNO ID: [id number] Author: BONI US RT(Rosanna) Service: ? Author Type: Technologist [...] PATIENT PRESENTS WITH AN IMPLANTABLE OR ATTACHED FACILITY ATTENDANT: No RADIOLOGY DEPARTMENT: General X-ray: Exam(s) Completed: Upper Extremity X-Ray(s): Shoulder, AP / TRUE AP / AXILLARY left PERIPHERAL IV DATA: Not applicable SIGNED BY: RT Guillermina(R) April 20, 2024 2:03 PM [facility] 04-17-2024 Procedure note [facility] 04-17-2024 History and physi henny note [facility] 02-25-2024 Note Cardiovascular Medic [facility] SUBJECTIVE Chief Complaint Patient presents with Hypertension Congestive Heart Failure Valve Disorder Nehal Baig is a 53 y.o. male here for follow-up. HPI PMHx: aortic valve regurg s/p aortic valve replacement 05/2023, HFpEF, fatty liver, pre-diabetes, JACOBY, left carotid artery stenosis with hx TIA 2019, HLD Patient here for 3 mo follow up HFpEF, valve disorder, and chest pain. Had echo last week. Patient c/o chest pain, which he states is different. Says it radiates down to his right abdomen. Also says he's having liver issues. He needs clearance to hold warfarin and aspirin 5 days prior to upcoming colonoscopy in Mar. Also requesting clearance for shoulder surgery, not yet scheduled. has concerns about liver issues and Farxiga and valsartan. Says he's been close to syncope a few times, and this is accompanied by nausea and blurred vision. 02/25/2024 He c/o ongoing lightheadedness along with brain fog. Within the past couple of weeks he c/o abdominal tenderness, right side. He feels abdominal bloating. His appetite has been decreased. He has gained 6# in the past week despite eating less. He had US of his liver which was noted to be enlarged, liver enzymes were also elevated. BP at home running 105-125s/60-70s. Pending colonoscopy 03/13/24 for positive stool guiac. He will need to have a shoulder procedure, shoulder scope. Patient Active Problem List Diagnosis Bacteremia Chronic [...] tunnel syndrome, bilateral Diabetes (CMS/HCC) Environmental allergies Essential hypertension Fatty metamorphosis of liver GERD (gastroesophageal reflux disease) Impaired fasting blood sugar Lightheadedness Mediastinal hematoma Obesity, Class III, BMI 40-49.9 (morbid obesity) (CMS/HCC) Post-operative state Prediabetes Primary insomnia S/P shoulder replacement, left Shortness of breath Prostate cancer screening Wheezing Status post mechanical aortic valve replacement Herniation of intervertebral disc between L5 and S1 Lumbar stenosis Pericardial effusion Past Medical History: Diagnosis Date Abnormal ECG Bacteremia Bacterial endocarditis COPD (chronic obstructive pulmonary disease) (CMS/HCC) Dyslipidemia Hepatic steatosis Left carotid stenosis Pre-diabetes Pulmonary nodules Sleep apnea Sleep apnea TIA (transient ischemic attack) 2020 Family History Problem Relation Name Age of Onset Lung cancer Mother Epididymitis Father Social History Tobacco Use Smoking status: Never Passive exposure: Never Smokeless tobacco: Never Substance Use Topics Alcohol use: Not Currently Comment: very rarely Drug use: Never Allergies Allergen Reactions Atorvastatin Other Myalgias ROS Constitutional: Positive for malaise/fatigue. Eyes: Positive for blurred vision. Cardiovascular: Positive for chest pain, dyspnea on exertion ( occasionally ) and near-syncope. Gastrointestinal: Positive for bloating and nausea. Neurological: Positive for light-headedness. All other systems reviewed and are negative. OBJECTIVE Visit Vitals BP 104/60 (BP Location: Right arm, Patient Position: Sitting) Pulse 65 Ht 1.854 m (6' 1 ) Wt (!) 157 kg (346 lb) SpO2 97% BMI 45.65 kg/m??? Smoking Status Never BSA 2.84 m??? Medications: Current Outpatient Medications: baclofen (Lioresal) 20 mg tablet, Take 20 mg by mouth in the morning, afternoon, and at bedtime., Disp: , Rfl: cholecalciferol, vitamin D3, 50 mcg (2,000 unit) capsule, 1 capsule 1 (one) time each day at the same time., Disp: , Rfl: dapagliflozin propanediol (Farxiga) 10 mg, Take 1 tablet (10 mg) by mouth once daily as directed., Disp: 90 tablet, Rfl: 3 furosemide (Lasix) 20 mg tablet, Take 1 tablet (20 mg) by mouth in the morning., Disp: 90 tablet, Rfl: 3 gabapentin (Neurontin) 400 mg capsule, Take 400 mg by mouth with lunch. Pt takes at noon, Disp: , Rfl: HYDROcodone-acetaminophen (Pearblossom) 7.5-325 mg tablet, 1 tablet every 8 (eight) hours if needed for severe pain (8-10 pain score)., Disp: , Rfl: metoprolol succinate XL (Toprol-XL) 25 mg 24 hr tablet, Take 1 tablet (25 mg) by mouth in the morning., Disp: 90 tablet, Rfl: 3 omeprazole (PriLOSEC) [address] capsule, TAKE 1 CAPSULE (40 MG) BY MOUTH BEFORE BREAKFAST, Disp: 30 capsule, Rfl: 6 spironolactone (Aldactone) 25 mg tablet, Take 1 tablet (25 mg) by mouth once (more content not included)... [facility] 02-25-2024 Note Patient here for 3 m o follow up HFpEF, valve disorder, and chest pain. Had echo last week. Patient c/o chest pain, which he states is different. Says it radiates down to his right abdomen. Also says he's having liver issues. He needs clearance to hold warfarin and aspirin 5 days prior to upcoming colonoscopy in Mar. Also requesting clearance for shoulder surgery, not yet scheduled. has concerns about liver issues and Farxiga and valsartan. Says he's been close to syncope a few times, and this is accompanied by nausea and blurred vision. Review of Systems Constitutional: Positive for malaise/fatigue. Eyes: Positive for blurred vision. Cardiovascular: Positive for chest pain, dyspnea on exertion ( occasionally ) and near-syncope. Gastrointestinal: Positive for bloating and nausea. Neurological: Positive for light-headedness. All other systems reviewed and are negative. [facility] 02-04-2024 History of Present illness Narrative Images from the original note were not included. @ROSELINE@ Nehal Baig is a 53 y.o. male [...] times daily cholecalciferol (Vitamin D-3) 50 MCG (1999 UT) capsule 1 capsule Farxiga 10 mg, Daily furosemide (LASIX) 40 mg, Every other day gabapentin (NEURONTIN) 600 mg, 2 times daily HYDROcodone-acetaminophen (Pearblossom) 7.5-325 MG tablet 1 tablet, Every 4 [...] TENDON SURGERY 03/23 AORTIC VALVE REPLACEMENT 2023 [facility] CARPAL TUNNEL RELEASE 2020 TOTAL SHOULDER ARTHROPLASTY [...] Not at risk (09/19/2023) Received from [facility] PHQ-2 Patient Health Questionnaire-2 Score: 0 REVIEW [...] note was created using voice recognition through [employer]. documented in this encounter [facility] 09-26-2023 Note Patient Education Materials Foll s: [facility] 05-31-2023 Note [id number] #[id number] [facility] 04-11-2023 Evaluation note Encounter Date Diagnosis [...] would like to do some PT at [facility]. WIll order Aqua therapy for strenthing and conditioning. Follow up 6 months. Apr, Neck pain (ICD-10 - M54.2) [facility] 12-05-2023 Note [id number]#1.00[facility] 02-04-2023 Evaluation note* Encounter Date [...] Consider related to weight trajectory, discuss treatment [facility] 10-19-2023 Evaluation note* Encounter Date Diagnosis [...] patient to pain management Dr. Adkins in [place].-Will refer to physical therapy in [place].-We will get release of information from ANGIE [...] the spine. Will refer to weight management. [facility] 09-17-2023 Evaluation note* Encounter Date Diagnosis [...] spur of left foot (ICD-10 - M77.32) [facility] 07-05-2023 Miscellaneous Notes* Telephone Encounter - Ottoniel Sagastume MA - 2022 3:12 PM EDT Last ov 08/20/2022 [facility] Misc[facility] Notes* Telephone Encounter - Nae Kim MA - 07/10/2022 10:26 AM EDT Requested Prescriptions Refused Prescriptions Disp Refills lisinopril (ZESTRIL) 10 mg tablet 30 tablet 3 Sig: Take 1 tablet by mouth once daily. Refused By: NAE KIM Reason for Refusal: Records indicate that there is a valid prescription at the pharmacy Nae Kim MA [facility] Miscellaneous Notes* Telephone Encounter - Carly Lincoln LPN - 07/09/2022 3:54 PM EDT Physician: Salome Aguillon APRN.ENVIRONMENTAL SCIENCE TECHNICIAN Call from pharmacy requesting refill. Please E-Scribe Last OV: 05/21/2022 Future OV: 08/20/2022 Requested Prescriptions Pending Prescriptions Disp Refills lisinopril (ZESTRIL) 10 mg tablet [Pharmacy Med Name: LISINOPRIL 10 MG TABLET] 30 tablet 3 Sig: TAKE 1 TABLET BY MOUTH EVERY DAY Carly Lincoln LPN [facility] Miscellaneous Notes* Telephone Encounter - Salome Aguillon APRN.CNP - 05/28/2022 11:53 AM EST Please call patient to review. Ultrasound kidney/bladder shows no acute Should obtain protein/creatinine ratio: OBTAIN a spot first- or second-morning urine sample after avoiding exercise Keep nephrology appt. documented in this encounterMercer County Community Hospital02-25-2023 NoteHNO ID: [id number] Author: RT Vick(R) Service: Radiology Author Type: [...] Amezcua RDMS RVRaheem May 26, 2022 2:34 [id number] Miscellaneous Notes* Addendum Note - Salome Aguillon APRN.CNP - 05/21/2022 5:51 PM ESTAddended by: SALOME AGUILLON on: 05/21/2022 05:51 PM Modules accepted: Orders documented in this encounterMercer County Community Hospital02-20-2023 History of Present illness Narrative* Salome Aguillon APRN.CNP - 05/21/2022 5:21 PM EST This note was created using NEST Fragrancesriter. Subjective Nehal Baig is a 51 year [...] 2020. This is a workers comp issue-through [facility]- [facility] ortho/Dr. Cowan. 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 Shoulder replacement surgery left 08/23/24. 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 ENDO/WT: -needs f/up endo wt managmeent Dr. Jorge -needs f/up senior director Tarsha Jamison -needs appt with Dr. Man/Agustina-endo wt management team [phone] Will review at upcoming appointment. Protein noted in urine. Vitamin D is low at 30.7-recommend jzos-cdt-chgkijz vitamin D3 1000 units daily. Cholesterol is elevated, worsening when compared to prior-we will discuss increasing cholesterol medication. Kidney, liver, electrolytes look fine. Thyroid lab looks fine. PSA/prostate lab looks fine. A1c is stable at 5.4. Blood count looks fine. Written by Salome Aguillon APRN.ENVIRONMENTAL SCIENCE TECHNICIAN on 05/21/2022 3:44 PM EST Last [...] Negative Ketones, Urine Negative Trace (A) Specific Foss, Ur 1.005 - 1.030 >=1.030 (H) Hemoglobin/Blood,Ur [...] KIDNEY/BLADDER - CONSULT TO NEPHROLOGY Salome Aguillon APRN.ENVIRONMENTAL SCIENCE TECHNICIAN documented in this encounterMercer County Community Hospital12-06-2022 History of Present illness Narrative* Carly [...] Other Carly Lincoln LPN documented in this encounterMercer County Community Hospital11-17-2022 History of Present illness Narrative* Salome Aguillon APRN.ENVIRONMENTAL SCIENCE TECHNICIAN - 02/15/2022 2:24 PM EST This note was created using NoteWriter. Subjective Nehal Baig is a 51 year old male. CC: routine f/up Last seen: HPI ENDO/WT: -needs f/up endo wt managmeent Dr. Jorge -needs f/up senior director Tarsha Jamison -needs appt with Dr. Man/Agustina-endo wt management team [phone] Has been off metformin 6 weeks + [...] 2020. This is a workers comp issue-through [facility]- [facility] orth[facility]/Dr. Cowan. 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 Shoulder replacement surgery left 08/23/24. 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 HM: -declines flu vaccine [...] looks fine. Vitamin D is low-please begin xcel-jpa-ljiticb vitamin D3 2000 units daily. Urine asymptomatic. Component Latest Ref Rng & Units 02/10/2022 Color Yellow Yellow Clarity Clear Clear Glucose, Urine Negative Negative Bilirubin, Urine Negative Negative Ketones, Urine Negative Negative Specific Foss, Ur 1.005 - 1.030 1.037 (H) Hemoglobin/Blood,Ur [...] 2020. This is a workers comp issue-through [facility] nuria/Dr. Cowan. 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 He has since been giventhe okay to return back to work as a solid waste truck driver. 6. History of colon polyps [...] We discussed lifestyle measures today. Salome Aguillon APRN.LEDOAN * Salome Aguillon APRN.CNP - 02/15/2022 2:23 PM EST documented in this encounterMercer County Community Hospital09-13-2022 Miscellaneous Notes* Telephone Encounter - Carly Lincoln LPN - 12/12/2021 7:09 AM EDT Physician: Salome Aguillon APRN.CNP Call from patient requesting refill. Please E-Scribe Last OV: 11/15/2021 Future OV: 02/15/2022 Requested Prescriptions Pending Prescriptions Disp Refills lisinopril (ZESTRIL, PRINIVIL) 10 mg tablet 90 tablet 1 Sig: Take 1 tablet by mouth once daily. Carly Lincoln LPN documented in this encounterMercer County Community Hospital08-17-2022 Instructions* Patient Instructions* Salome Aguillon APRN.LEODAN - 11/15/2021 9:28 AM EDT ENDO/WT: -needs f/up endo wt managmeent Dr. Ania Garcianeeds f/up senior director Tarsha Jamison -needs appt with Dr. Man/Agustina-endo wt management team [phone] documented in this encounterMercer County Community Hospital08-17-2022 History of Present illness Narrative* Salome Aguillon APRN.LEODAN - 11/15/2021 9:22 AM EDT This note was created using NEST Fragrancesriter. Subjective Nehal Baig is a 51 year old male. CC: routine f/up HPI ENDO/WT: -needs f/up endo wt managmeent Dr. Ania Garcianeeds f/up senior director Tarsha Jamison -needs appt with Dr. Man/Agustina-endo wt management team [phone] RESP-lung nodules stable. Repeat ct and OV 1 year (09/22/22) -JACOBY on cpap -stopped steroid inhaler-no good response CARDIAC: on lisinopril and atorvastatin. Denies chest pain, pressure, palpitations, SOB, MATIAS, dizziness, syncope, dependent edema. He was seen ED at [facility], elevated BP, partial blockage 70% [...] 2020. This is a workers comp issue-through [facility]- [facility] orth[facility]/Dr. Cowan. 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 Nae Man; sent myc msg 10/27 documented in this encounterMercer County Community Hospital06-29-2022 Miscellaneous Notes* Telephone Encounter - Riki Johnson Ma - 09/27/2021 1:16 PM EDT Rx sent 08/15/21 with updated dose. Closed documented in this encounterMercer County Community Hospital06-21-2022 Nurse Note* Elisa Nicholson RN - 09/19/2021 3:47 PM EDT IV Access: IV IV Site: right Antecubital IV GAUGE 24 gauge IV Removal Date 09/19/2021 Time 1540pm Reactions: WNL Order reviewed by nurse:yes Medications: Definity - dosage 1.5cc diluted IVP Reaction: No LOT: [id number] EXP: 11/30/2021 [facility] #[id number] MFG: [employer] Elisa Nicholson RN documented in this encounterMercer County Community Hospital06-21-2022 History of Present illness Narrative* Brisa [...] 19, 2021 9:04 AM documented in this encounterMercer County Community Hospital06-20-2022 NoteHNO ID: [id number] Author: PARISH Alex) Service: Radiology Author Type: Accordion Repairer Type: Progress Notes Filed: 09/18/2021 12:00 PM [...] BY: PARISH Alex) September 18, 2021 12:00 PMM[facility]06[facility] History of Present illness Narrative* PARISH [...] 18, 2021 12:00 PM documented in this encounterMercer County Community Hospital06-15-2022 Miscellaneous Notes* Telephone Encounter - Ninfa Jyotsna - 09/13/2021 8:29 AM EDT Images from the original note were not included. MD Francisco Anguiano [address] Spec Pool 4-6 weeks with me. Thanks documented in this encounterMercer County Community Hospital06-15-2022 Instructions* Patient Instructions* Anh Murphy MD - 09/13/2021 7:27 AM EDT Images from the original note were not included. WEIGHT MANAGEMENT PROGRAM Thank you for seeing me in [facility]. Please schedule your follow-up appointment: -- Call Center: [phone] or [phone] Please call this number to make your follow up appointment. If you are on WM medications that must be filled by a certain date please notify person at the CallCenter to ensure scheduled within needed timeframe. -- Dietitian: [phone] Please call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 Confidentiality of Alcohol and Drug Abuse Patient Records regulations: The Federal rules restrict any use of the information to criminally investigate or prosecute any alcohol or drug abuse patient.[facility] HospitalIn the event this information is protected by the Federal Confidentiality of Alcohol and Drug Abuse Patient Records regulations: The Federal rules restrict any use of the information to criminally investigate or prosecute any alcohol or drug abuse patient.[facility] HospitalIn the event this information is protected by the Federal Confidentiality of Alcohol and Drug Abuse Patient Records regulations: The Federal rules restrict any use of the information to criminally investigate or prosecute any alcohol or drug abuse patient.[facility] HospitalIn the event this information is protected by the Federal Confidentiality of Alcohol and Drug Abuse Patient Records regulations: The Federal rules restrict any use of the information to criminally investigate or prosecute any alcohol or drug abuse patient.[facility] HospitalIn the event this information is protected by the Federal Confidentiality of Alcohol and Drug Abuse Patient Records regulations: The Federal rules restrict any use of the information to criminally investigate or prosecute any alcohol or drug abuse patient.[facility] the event this information is protected by the Federal Confidentiality of Alcohol and Drug Abuse Patient Records regulations: The Federal rules restrict any use of the information to criminally investigate or prosecute any alcohol or drug abuse patient.[facility] HospitalIn the event this information is protected by the Federal Confidentiality of Alcohol and Drug Abuse Patient Records regulations: The Federal rules restrict any use of the information to criminally investigate or prosecute any alcohol or drug abuse patient.[facility] HospitalIn the event this information is protected by the Federal Confidentiality of Alcohol and Drug Abuse Patient Records regulations: The Federal rules restrict any use of the information to criminally investigate or prosecute any alcohol or drug abuse patient.[facility] HospitalIn the event this information is protected by the Federal Confidentiality of Alcohol and Drug Abuse Patient Records regulations: The Federal rules restrict any use of the information to criminally investigate or prosecute any alcohol or drug abuse patient.[facility] HospitalIn the event this information is protected by the Federal Confidentiality of Alcohol and Drug Abuse Patient Records regulations: The Federal rules restrict any use of the information to criminally investigate or prosecute any alcohol or drug abuse patient.[facility] HospitalIn the event this information is protected by the Federal Confidentiality of Alcohol and Drug Abuse Patient Records regulations: The Federal rules restrict any use of the information to criminally investigate or prosecute any alcohol or drug abuse patient.[facility] HospitalIn the event this information is protected by the Federal Confidentiality of Alcohol and Drug Abuse Patient Records regulations: The Federal rules restrict any use of the information to criminally investigate or prosecute any alcohol or drug abuse patient.[facility] HospitalIn the event this information is protected by the Federal Confidentiality of Alcohol and Drug Abuse Patient Records regulations: The Federal rules restrict any use of the information to criminally investigate or prosecute any alcohol or drug abuse patient.[facility] HospitalIn the event this information is protected by the Federal Confidentiality of Alcohol and Drug Abuse Patient Records regulations: The Federal rules restrict any use of the information to criminally investigate or prosecute any alcohol or drug abuse patient.[facility] HospitalIn the event this information is protected by the Federal Confidentiality of Alcohol and Drug Abuse Patient Records regulations: The Federal rules restrict any use of the information to criminally investigate or prosecute any alcohol or drug abuse patient.[facility] HospitalIn the event this information is protected by the Federal Confidentiality of Alcohol and Drug Abuse Patient Records regulations: The Federal rules restrict any use of the information to criminally investigate or prosecute any alcohol or drug abuse patient.[facility] HospitalIn the event this information is protected by the Federal Confidentiality of Alcohol and Drug Abuse Patient Records regulations: The Federal rules restrict any use of the information to criminally investigate or prosecute any alcohol or drug abuse patient.[facility] Care Teams (unrecognized sec tion and content) Team Status: Active Member Role Status Dates Chandrakant Bernal MD Primary Care Provider Active Team Status: Inactive Member Role Status Dates Chandrakant Bernal MD Primary Care Provider Active Start: November 09, 2024 End: November 09, 2024 Venancio Russell MD Attending Provider Active Sta rt: November 09, 2024 End: November 09, 2024 HAIDER Young Referring Provider Active Start: November 09, 2024 End: November 09, 2024 Holistic Nutritionist Relationship Specialty Start Date End Date Salome Aguillon, POWER WASHER.ENVIRONMENTAL SCIENCE TECHNICIAN [address] [place] [address] PCP - General Family Practice 11/23/19 Holistic Nutritionist Relationship Specialty Start Date End Date Salome Aguillon, POWER WASHER.ENVIRONMENTAL SCIENCE TECHNICIAN [address] [place] [address] PCP - General Family Practice 11/23/19 Holistic Nutritionist Relationship Specialty Start Date End Date Salome Aguillon, POWER WASHER.ENVIRONMENTAL SCIENCE TECHNICIAN [address] [place] [address] PCP - General Family Practice 11/23/19 Holistic Nutritionist Relationship Specialty Start Date End Date Salome Aguillon, POWER WASHER.ENVIRONMENTAL SCIENCE TECHNICIAN [address] [place] [address] PCP - General Family Practice 11/23/19 Holistic Nutritionist Relationship Specialty Start Date End Date Salome Aguillon, POWER WASHER.ENVIRONMENTAL SCIENCE TECHNICIAN [address] [place] [address] PCP - General Family Practice 11/23/19 Holistic Nutritionist Relationship Specialty Start Date End Date Salome Aguillon, POWER WASHER.ENVIRONMENTAL SCIENCE TECHNICIAN [address] [place] [address] PCP - General Family Practice 11/23/19 Holistic Nutritionist Relationship Specialty Start Date End [facility] POWER WASHER.ENVIRONMENTAL SCIENCE TECHNICIAN [address] [place] [address] PCP - General Family Practice 11/23/19 Holistic Nutritionist Relationship Specialty Start Date End Date [facility] Salome, POWER WASHER.ENVIRONMENTAL SCIENCE TECHNICIAN [address] [place] [address] PCP - General Family Practice 11/23/19 Holistic Nutritionist Relationship Specialty Start Date End Date [facility] Salome, POWER WASHER.ENVIRONMENTAL SCIENCE TECHNICIAN [address] [place] [address] PCP - General Family Practice 11/23/19 Holistic Nutritionist Relationship Specialty Start Date End Date [facility] Salome, POWER WASHER.ENVIRONMENTAL SCIENCE TECHNICIAN [address] [place] [address] PCP - General Family Practice 11/23/19 Holistic Nutritionist Relationship Specialty Start Date End Date [facility] POWER WASHER.ENVIRONMENTAL SCIENCE TECHNICIAN [address] [place] [address] PCP - General Family Practice 11/23/19 Holistic Nutritionist Relationship Specialty Start Date End Date [facility] POWER WASHER.ENVIRONMENTAL SCIENCE TECHNICIAN [address] [place] [address] PCP - General Family Practice 11/23/19 Holistic Nutritionist Relationship Specialty Start Date End Date [facility] POWER WASHER.ENVIRONMENTAL SCIENCE TECHNICIAN [address] [place] [address] PCP - General Family Practice 11/23/19 Holistic Nutritionist Relationship Specialty Start Date End Date [facility] POWER WASHER.ENVIRONMENTAL SCIENCE TECHNICIAN [address] [place] [address] PCP - General Family Practice 11/23/19 Holistic Nutritionist Relationship Specialty Start Date End Date [facility] Salome, POWER WASHER.ENVIRONMENTAL SCIENCE TECHNICIAN [address] [place] [address] PCP - General Family Practice 11/23/19 Holistic Nutritionist Relationship Specialty Start Date End Date [facility] Salome, POWER WASHER.ENVIRONMENTAL SCIENCE TECHNICIAN [address] [place] [address] PCP - General Family Medicine 11/23/19 Holistic Nutritionist Relationship Specialty Start Date End Date [facility] Salome, POWER WASHER.ENVIRONMENTAL SCIENCE TECHNICIAN [address] [place] [address] PCP - General Family Medicine 11/23/19 Holistic Nutritionist Relationship Specialty Start Date End Date [facility] Salome, POWER WASHER.ENVIRONMENTAL SCIENCE TECHNICIAN [address] [place] [address] PCP - General Family Medicine 11/23/19 Holistic Nutritionist Relationship Specialty Start Date End Date [facility] Salome, POWER WASHER.ENVIRONMENTAL SCIENCE TECHNICIAN [address] [place] [address] PCP - General Family Medicine 11/23/19 Holistic Nutritionist Relationship Specialty Start Date End Date [facility] Salome, POWER WASHER.ENVIRONMENTAL SCIENCE TECHNICIAN [address] [place] [address] PCP - General Family Medicine 11/23/19 Holistic Nutritionist Relationship Specialty Start Date End Date [facility] POWER WASHER.ENVIRONMENTAL SCIENCE TECHNICIAN [address] [place] [address] PCP - General Family Medicine 11/23/19 Holistic Nutritionist Relationship Specialty Start Date End Date [facility] Salome, POWER WASHER.ENVIRONMENTAL SCIENCE TECHNICIAN [address] [place] [address] PCP - General Family Medicine 11/23/19 Holistic Nutritionist Relationship Specialty Start Date End Date [facility] POWER WASHER.ENVIRONMENTAL SCIENCE TECHNICIAN [address] [place] [address] PCP - General Family Medicine 11/23/19 Holistic Nutritionist Relationship Specialty Start Date End Date [facility] Salome, POWER WASHER.ENVIRONMENTAL SCIENCE TECHNICIAN [address] [place] [address] PCP - [facility] Medicine 11/23/19 Holistic Nutritionist Relationship Specialty Start Date End Date [facility] Salome, POWER WASHER.ENVIRONMENTAL SCIENCE TECHNICIAN [address] [place] [address] PCP - [facility] Medicine 11/23/19 Holistic Nutritionist Relationship Specialty Start Date End Date [facility] Salome, POWER WASHER.ENVIRONMENTAL SCIENCE TECHNICIAN [address] [place] [address] PCP - [facility] Medicine 11/23/19 Holistic Nutritionist Relationship Specialty Start Date End Date [facility], POWER WASHER.ENVIRONMENTAL SCIENCE TECHNICIAN [address] [place] [address] PCP - [facility] Medicine 11/23/19 Team Status: Active Member Role Status Dates Vonnie Guerrero , MANAGER REIMBURSEMENT-C Primary Care Provider Active Team Status: Inactive Member Role Status Dates Vonnie Guerrero NP-C Primary Care Provider Active HAIDER Beard Attending Provider Active Team Status: Inactive Member Role Status Dates Salome Aguillon NP-C Primary Care Provider Acti tyler Yi NP-C Attending Provider Active Team Status: Inactive Member Role Status Dates Salome Aguillon MANAGER REIMBURSEMENT-C Primary Care Provider Acti tyler Quezada NP-Krissy Attending Provider Active Team Status: Inactive Member Role Status Dates Huan Cowan DO Attending Provider Active Team Status: Active Member Role Status Dates Vonnie Guerrero MANAGER REIMBURSEMENT-C Primary Care Provider Active Siri Quezada NP-C Attending Provider Active Team Status: Active Member Role Status Dates PHYSICIAN NO FAMILY Primary Care Provider Active Team Status: Inactive Member Role Status Dates PHYSICIAN NO FAMILY Primary Care Provider Active Start: June 11, 2023 End: June 11, 2023 Siri Quezada MANAGER REIMBURSEMENTJoseC Attending Provider Active Start: June 11, 2023 End: June 11, 2023 Holistic Nutritionist Relationship Specialty Start Date End Date Salome Aguillon, POWER WASHERMarinaENVIRONMENTAL SCIENCE TECHNICIAN [address] [place] [address] PCP - General Family Medicine 11/23/19 Holistic Nutritionist Relationship Specialty Start Date End Date Chandrakant Bernal MD [address] [place] [address] PCP - [facility] Family Medicine 01/28/24 Holistic Nutritionist Relationship Specialty Start Date End Date Chandrakant Bernal MD [address] [place] [address] PCP - General Family Medicine 01/28/24 Holistic Nutritionist Relationship Specialty Start Date End Date Chandrakant Bernal MD [address] [place] [address] PCP - General Family Medicine 01/28/24 Team Status: Active Member Role Status Dates PHYSICIAN NO FAMILY Primary Care Provider Active Start: January 28, 2024 Jared Mcgrath DO Attending Provider Active Sta rt: January 28, 2024 Team Status: Inactive Member Role Status Dates Ton Connolly MD Attending Provider Active Start: March 13, 2024 End: March 13, 2024 Chandrakant Bernal MD Primary Care Provide r, Referring Provider Active Start: March 13, 2024 End: March 13, 2024 Team Status: Active Member Role Status Dates Ton Connolly MD Attending Provider, Other Provider Active Start: March 13, 2024 Chandrakant Bernal MD Primary Care Provide r, Referring Provider Active Start: March 13, 2024 Team Status: Inactive Member Role Status Dates Chandrakant Bernal MD Primary Care Provider Active Start: April 17, 2024 End: April 17, 2024 Ton Connolly MD Attending Provider Active Start: April 17, 2024 End: April 17, 2024 Team Status: Active Member Role Status Dates Chandrakant Bernal MD Primary Care Provider Active Start: April 17, 2024 Ton Connolly MD Attending Provider, Other Provider Active Start: April 17, 2024 Holistic Nutritionist Relationship Specialty Start Date End Date Salome Aguillon, POWER WASHER.ENVIRONMENTAL SCIENCE TECHNICIAN [address] [place] [address] PCP - General Family Medicine 11/23/19 Huan Cowan [address] [place] [address] Referring Orthopedics 03/31/24 Huan Cowan [address] [place] [address] Referring Orthopedics 04/03/24 Holistic Nutritionist Relationship Specialty Start Date End Date Salome Aguillon, POWER WASHER.ENVIRONMENTAL SCIENCE TECHNICIAN [address] [facility] [place] [address] PCP - General Family Medicine 11/23/19 Huan Cowan [address] [place] [address] Referring Orthopedics 03/31/24 Huan Cowan [address] [place] [address] Referring Orthopedics 04/03/24 Holistic Nutritionist Relationship Specialty Start Date End Date Chandrakant Bernal MD [address] [place] [address] PCP - General Family Medicine 01/28/24 Goals [...] BE BASED ON THE PRIMARY CLINICAL RECORDS. [facility] [employer] [facility]. provides no warranty or guarantee of the accuracy or completeness of information in this document.
== END 2024-11-24 15:52 | disposition home or self-care (01) ==
PROVIDERS: PCP Family Medicine; Visit Provider Internal Medicine Interventional Cardiology
DX: I35.1 Nonrheumatic aortic (valve) insufficiency (principal)
CPT/HCPCS: 93306

== ENCOUNTER 2024-11-30 00:47 | Outpatient (RCR) | payer BC, SELFPAY | END 2024-12-29 15:00 | disposition home or self-care (01) | LOC: MM 00:47 | PROVIDERS: PCP Family Medicine; Visit Provider Internal Medicine | DX: Z51.81 Encounter for therapeutic drug level monitoring (principal); Z79.01 Long term (current) use of anticoagulants; Z95.2 Presence of prosthetic heart valve | CPT/HCPCS: 85610; G0463 ==

== ENCOUNTER 2024-12-30 04:15 | Outpatient (RCR) | payer OTHER, SELFPAY | END 2025-01-29 23:59 | disposition home or self-care (01) | LOC: MM 04:15 | PROVIDERS: PCP Family Medicine; Visit Provider Internal Medicine | DX: Z51.81 Encounter for therapeutic drug level monitoring (principal); Z79.01 Long term (current) use of anticoagulants; Z95.2 Presence of prosthetic heart valve | CPT/HCPCS: 85610; G0463 ==

== ENCOUNTER 2025-01-30 11:04 | Outpatient (RCR) | payer OTHER, SELFPAY | END 2025-02-28 23:59 | disposition home or self-care (01) | LOC: MM 11:04 | PROVIDERS: PCP Family Medicine; Visit Provider Family Medicine | DX: Z51.81 Encounter for therapeutic drug level monitoring (principal); Z79.01 Long term (current) use of anticoagulants; Z95.2 Presence of prosthetic heart valve | CPT/HCPCS: 85610; G0463 ==

== ENCOUNTER 2025-02-09 15:38 | Outpatient (OUT) | payer OTHER, SELFPAY ==
--- OUTSIDE RECORDS SUMMARY | 2023-11-13 11:30 | XMS_ITS ---
Author Organization [facility] in [place] Address [address] [place] [address] Care Team Providers Care Director Of Business Development Name Role Phone Conor Parish Primary Care Provider REASON FOR VISIT 4monf/u bhs Encounters Encounter Location Date Provider [facility] [address] [place] [address] 11/13/2023 Conor Parish Plan Of Treatment No Information Progress Notes * SAFIA Pardeep EDOB:1970 (54 yo M)Acc No.[id number]:11/13/2023 UNLOCKED PROGRESS NOTE Progress Note Patient: Pardeep ARELLANO :?Demetrius Parish ([facility]), MDDOB:1970???Age: 53 Y???Sex:MaleDate:4Phone:[phone]:[address] [place], [place]-[address] Subjective: * Chief Complaints: * 1 . 4monf/u bhs. * Medical History: Objective: * Vitals: Assessment: Plan: * Treatment: * * Electronic signature of Conor Parish MD, [phone] on 02/09/2025 at 03:42 PM EST Sign off status: PendingVisit Status:?N/S N/C (No Show/No Charge) * Provider: Dominik Parish MD (TTC) Date: 0 11/13/2023 Generated for Printing/Faxing/eTransmitting on:?02/09/2025 03:42 PM EST
--- OUTSIDE RECORDS SUMMARY | 2025-02-09 15:42 | XMS_ITS | Clinical Summary ---
Author Organization [facility] Address [address] [place] [address] Care Team Providers Care Gold Charmer Name Role Phone Demetrius Parish MD Primary Care Provider [phone] Allergies Active AllergyReactionsCriticalityNoted QgpaFmfkdkkkHqoiuphezrshYwpgu36/18/2024 Myalgias BwmericcbgGxyws59/26/2392SetypozpeyuvduBjwlr64/26/2138Emxvlyw-Bgl-Bdm Reductase AhgsyxmhbmOtqps04/15/2025 Medications MedicationSigDispense QuantityRefillsLast FilledStart DateEnd DateStatus baclofen (Lioresal) 20 mg tablet Take 20 mg by mouth in the morning, afternoon, and at bedtime.07/11/2023ctive cholecalciferol, vitamin D3, 50 mcg (2,000 unit) capsule 1 capsule 1 (one) time each day at the same time.Active dapagliflozin propanediol (Farxiga) 10 mg Indications:Benign hypertensive heart disease without congestive heart failure Take 1 tablet (10 mg) by mouth once daily as directed. 90 tablet ctive metoprolol succinate XL (Toprol-XL) 25 mg 24 hr tablet Indications:Nonrheumatic aortic valve insufficiency,SVT (supraventricular tachycardia)Take 1 tablet (25 mg) by mouth in the morning. 90 tablet ctive multivitamin tablet Take 1 tablet by mouth in the morning.Active cyanocobalamin (Vitamin B-12) 1,000 mcg tablet Take 1,000 mcg by mouth in the morning.Active aspirin 81 mg EC tablet Take 81 mg by mouth in the morning.Active colchicine 0.6 mg tablet Take 0.6 mg by mouth in the morning.09/12/2023ctive ezetimibe (Zetia) 10 mg tablet Take 10 mg by mouth in the morning.02/03/2024ctive valsartan (Diovan) 40 mg tablet Take 40 mg by mouth in the morning.09/07/2023ctive omeprazole (PriLOSEC) [address] capsule Indications:Nonrheumatic aortic valve insufficiency,SVT (supraventricular tachycardia)TAKE 1 CAPSULE (40 MG) BY MOUTH BEFORE BREAKFAST 90 capsule 5Active warfarin (Coumadin) 5 mg tablet Take 5 mg by mouth. Take as directed per After Visit Summary.Active spironolactone (Aldactone) 25 mg tablet Indications:Benign hypertensive heart disease without congestive heart failure Take 1 tablet (25 mg) by mouth once daily as directed. 90 tablet 6Active Additional Information Patient not taking.Reported on 12/17/2024 cefdinir (Omnicef) 300 mg capsule 2 capsules 1 (one) time each day at the same time.5Active furosemide (Lasix) 40 mg tablet Indications:Nonrheumatic aortic valve insufficiency,SVT (supraventricular tachycardia)TAKE 1 TABLET BY MOUTH EVERY DAY IN THE MORNING 90 tablet 5Active acetaminophen (Tylenol) 325 mg tablet every 4 (four) hours.Active omeprazole OTC (PriLOSEC OTC) 20 mg EC tablet 1 (one) time each day at the same time.Active magnesium oxide (Mag-Ox) 400 mg tablet 400 mg in the morning.Active sennosides-docusate sodium (Loreto-Colace) 8.6-50 mg tablet Indications:Lumbar spondylosisTake 1 tablet by mouth in the morning. 30 tablet 5Active HYDROcodone-acetaminophen (Hamill) 5-325 mg tablet Indications:Lumbar spondylosisTake 1 tablet by mouth every 12 (twelve) hours if needed for moderate-severe pain (4-10 pain score). 60 tablet Expired Active Problems ProblemNoted DateDiagnosed DateAchilles tendinitis, right leg07/07/2024 Anesthesia of skin07/07/2024alcaneal spur, left foot07/07/2024alcaneal spur, right foot07/07/2024ervical disc mhdooss7807/07/2024Displacement of lumbar intervertebral disc without mgulfnbawg94/08/2025Internal zlmeuwmjlf01/08/2025 Iron deficiency vvmfbg0907/07/2024Lumbar jjzszprpzhuzr84/08/2025Malnutrition of moderate degree (Lynn: 60% to less than 75% of standard weight)07/07/2024nkle pain07/07/2024Foot pain07/07/2024Paresthesia of skin07/07/2024Plantar fascial ipmwumhdymng87/08/2025Strain of left Achilles vqxjsa9007/07/2024(HFpEF) heart failure with preserved ejection qbgotpng96/27/2025 Assessment & Plan (06/25/2024 12:58 PM EDT): ongoing low guideline directed medical therapy including ARB Farxiga Aldactone monitor intake output fluid status Chest pain06/25/2024 Assessment & Plan (06/25/2024 12:58 PM EDT): EKG from the [facility] showed asymmetric ST depressions in inferior [...] than a week for continue monitoring Elevated upaqpjt9304/20/2024Nontraumatic tear of left rotator cuff04/20/2024 Prosthetic joint eyazpugrw92/20/2025Pericardial hrmurrzs71/04/2024 Assessment & Plan (06/25/2024 12:58 PM EDT): Clinical examination does not reveal evidence of pericardial effusion normal tympany over the chestwall no signs of tamponade we will get an echocardiogram to evaluate and follow Herniation of intervertebral disc between L5 and S10Lumbar lvwfieak79S/P AVR07/26/2023 Assessment & Plan (06/25/2024 12:58 PM EDT): Status post mechanical AVR valve continue warfarin target INR between 2.5-3.5 Ekcjwugn17GERD (gastroesophageal reflux disease)07/17/2023 07/17/2023rostate cancer pjzdhhszq54SVT (supraventricular tachycardia)06/30/2023cute postoperative respiratory pmvyoefephrsu89/29/2024 Acute blood loss as cause of postoperative qfcmaz9106/27/20236426Hbvjdgosohi23/28/2024 Aortic valve hzyxtxot90/26/2024hronic bilateral low back pain without sciatica 06/21/2023cute bacterial lvnrpsdaggbq47/22/2024Nonrheumatic aortic valve wpmqffyiudpjl03/22/2024Morbid jzoezww3806/21/2023Nonrheumatic mitral valve zevymbehqhjsn97/22/2024Other ikctzqurhwslqy06/22/2024Stenosis of left carotid qfwcuh1706/21/2023OSA (obstructive sleep apnea)06/21/2023 Assessment & Plan (06/25/2024 12:58 PM EDT): Resume home setting of CPAP History of colon hcdfvl7306/21/2023 Overview (06/21/2023): 2021- tubular adenoma Pulmonary ouuycas3606/21/20234512Mrzrlgbije68/21/2024Impaired fasting blood sugar /S/P shoulder replacement, leftFatty metamorphosis of liverrediabetes Environmental jvpmofjje42Shortness of ifpwgp2203/10/2021 07/17/2023 Overview (07/17/2023): Last Assessment & Plan: Assessment: Flovent daily and albuterol PRN, ~3-5 times/week Awjkrgql62/ost-operative statearpal tunnel syndrome, /13//Mediastinal jeribxqq37/03/2021 07/17/2023rthralgia of multiple sitesrimary hypertension Overview (07/17/2023): Last Assessment & Plan: Assessment: controlled with medication, 136/78 yesterday Assessment & Plan (06/25/2024 12:58 PM EDT): Continue meds Egjndxmzyvnhqyn89rimary yskgnsnh12Obesity, Class III, BMI 40-49.9 (morbid obesity) Overview (07/17/2023): Last Assessment & Plan: Assessment: BMI 53 Encounters DateTypeDepartmentCare SniqHyadpidbdjn25/07/2025Telephone [facility] [address] [place] [address] [place] [phone] Natalia Santos LPN 01/18/2025 4:00 PM EDTFollow-Up [facility] [address] [place] [address] [place] [phone] Minerva Smith MD Lumbar spondylosis (Primary Dx)12/17/2024 11:20 AM EDTOffice Visit [facility] [address] [place] [address] [place] [address] Minerva Smith MD Lumbar spondylosis (Primary Dx); Chronic back pain, unspecified back location, unspecified back pain laterality 12/09/2024 1:30 PM EDTFollow-Up [facility] Surgery Clinic [address] [place] [phone] Ninfa Collazo, COMPLETION MANAGER [facility] ([facility]) (Primary Dx); Schwannoma; Chronic back pain, unspecified back location, unspecified back pain laterality; Thoracic spondylosis; Lumbar spondylosis; Cervical uvsedlzdvig66/10/2025 11:06 AM EDT - 12/09/2024 11:59 PM EDTHospital Encounter [facility] [place] [address] [facility] (CMS/HCC) Discharge Disposition: Home or Self Care ()12/09/2024 11:05 AM EDTHospital Encounter [facility] [place] [address] [facility] (CMS/HCC) Discharge Disposition: Home or Self Care ()12/01/2024[facility] [place] [address] [place] [address] Leah Santana MA 11/24/2024 9:00 AM EDTProcedure Visit [facility] Phys [facility] Re[facility] [address] [place] [address] [place] [address] Kadeem Hernandez MD Lumbar xtqozoelhfbge48/19/2025Orders Only [facility] Pain Medicine [address] [place] [address] [place] [phone] Marina Llamas CNP 11/14/2024[facility] [address] [place] [address] Zahra Smith PA-C Nonrheumatic aortic valve insufficiency; SVT (supraventricular tachycardia)11/12/2024 2:30 PM EDTFollow-Up [facility] Surgery Clinic [address] [place] [address] Ninfa Collazo CNP [facility] ([facility]/HCC) (Primary Dx); Chronic back pain, unspecified back location, unspecified back pain laterality; Thoracic spondylosis; Lumbar radiculopathy; Schwannoma; Lumbar dtcwckbcxro02/14/2025 1:19 PM EDT - 11/12/2024 11:59 PM EDTHospital Encounter [facility] [place] [address] Thoracic spondylosis Discharge Disposition: Home or Self Care (01)from Last 3 Months Immunizations ImmunizationAdministration DatesNext DueInfluenza, seasonal, injectable 02/07/2015Tdap11/17/2015 Family History Medical HistoryRelationNameCommentsEpididymitisFatherCancerMotherMargoLung cancerMotherMargoRelationNameStatusCommentsFatherMotherMargoDeceased Social History Tobacco UseTypesPacks/DayYears UsedDateSmoking Tobacco: NeverPassive Smoke Exposure: NeverSmokeless Tobacco: Never Tobacco Cessation:Counseling Given: Not Answered Alcohol UseStandard Drinks/WeekCommentsNot Currently0 (1 standard drink = 0.6 oz pure alcohol)very rarelyAHC UtilitiesAnswerDate RecordedIn the past 12 months has the [employer], gas, oil, or water [employer] threatened to shut off services in your home?No06/25/2024Humiliation, Afraid, Rape, and Kick questionnaireAnswer Date RecordedWithin the last year, have you been afraid of your partner or ex-partner?No01/18/2025Within the last year, have you been humiliated or emotionally abused in other ways by your partner or ex-partner?01/18/2025 Within the last year, have you been kicked, hit, slapped, or otherwise physically hurt by your partner or ex-partner?No01/18/2025Within the last year, have you been raped or forced to have any kind of sexual activity by your part ner or ex-partner?No01/18/2025Overall Financial Resource Strain (CARDIA)Answer Date RecordedHow hard is it for you to pay for the very basics like food, housing, medical care, and heating?Not very hard06/25/2024PHQ-2AnswerDate RecordedPatient Health Questionnaire-2 Kbbaq033UT Safety & Environment AnswerDate RecordedWithin the last year, have you been afraid of your partner or ex-partner?No09/26/2023Within the last year, have you been humiliated or emotionally abused in other ways by your partner or ex-partner?No09/26/2023 Within the last year, have you been kicked, hit, slapped, or otherwise physically hurt by your partner or ex-partner?No09/26/2023Within the last year, have you been raped or forced to have any kind of sexual activity by your part ner or ex-partner?No09/26/2023In the past year have you been physically or sexually abused?Unrecognized value09/26/2023TransportationAnswerDate RecordedIn the past 12 months, has lack of transportation kept you from medical appointments or from getting medications?No06/25/2024Lack of Transportation (Non-Medical)Not on file06/25/2024Housing Stability Vital SignAnswerDate RecordedIn the last 12 months, was there a time when you were not able to pay the mortgage or rent on time?No06/25/2024Number of Times Moved in the Last Year Not on file06/25/2024t any time in the past 12 months, were you homeless or living in a fpc (including now)?06/25/2024Hunger Vital SignAnswerDate RecordedWithin the past 12 months, you worried that your food would run out before you got the money to buymore.Never true06/25/2024Ran Out of Food in the Last YearNot on file06/25/2024Sex and Gender InformationValueDate RecordedSex Assigned at GrsxlFerl97/15/2024 7:24 AM EDTLegal ChpNpie1406/10/2023 10:31 AM EDT Gender CzusfvvlKctp25/15/2024 7:24 AM EDTSexual OrientationHeterosexual or Uylkbffa76/15/2024 7:24 AM EDT Last Filed Vital Signs Vital SignReadingTime TakenCommentsBlood Pknfssbv525/7601/18/2025 3:39 PM EDT Ugrua082701/18/2025 3:39 PM HGUEvadibhngon71.1 ??C (97 ??F)06/26/2024 2:22 PM EDT Respiratory Rwqs894506/26/2024 2:22 PM EDTOxygen Ocqbomlcvj25%12/09/2024 1:26 PM EDTInhaled Oxygen Concentration--Uekwym695 kg (362 lb)01/18/2025 3:39 PM EDT Yeexlc519.4 cm (6' 1 )01/18/2025 3:39 PM EDTBody Mass Index47.7601/18/2025 3:39 PM EDT Plan of Treatment DateTypeDepartmentCare Team (Latest Contact Info)Depvrmmkagv13/17/2025 9:00 AM ESTAppointment [facility] Medical Pavilion Procedure Room [address] [place] [address] Minerva Smith MD [address] [facility] [place] [address] 07/07/2025 11:30 AM EDTAppointment [facility] MR Imaging [address] [place] [phone] 07/07/2025 12:15 PM EDTAppointment [facility] MR Imaging [address] [place] [phone] 07/07/2025 1:00 PM EDTFollow-Up [facility] Surgery Clinic [address] [place] [phone] Ninfa Collazo, LEODAN [address] [facility] [place] [address] Health MaintenanceDue DateLast DoneCommentsCT Fryqkezcfspc83/05/1973Diabetes: Hemoglobin A1C1972FIT-DNA1972FIT1972FOBT1972 Asfxygmcdgcfp57/05/1973Diabetes: Retinopathy Ckuozwrfo39/05/1983Diabetes: Urine Protein Wjtacdfrj00/05/1992Hepatitis B Vaccines (1 of 3 - 19+ 3-dose series) 10/04/1991Pneumococcal Vaccine: Pediatrics (0 to 5 Years) and At-Risk Patients (6 to 64 Years) (1 of 2 - PCV)10/04/1991Zoster Vaccines (1 of 2)2022OVID- 19 Vaccine (1 - 2024- season)2024Influenza Vaccine (#1)2024 02/07/2015dult Wxaypzk71Depression Eekbwppbg64/20/2026 01/18/20258055Qkofrncwfvt65olorectal Cancer Wucmgnyhs62/02/2032 HIB VaccinesAged OutNo longer eligible based on patient's age to complete this topicHPV VaccinesAged OutNo longer eligible based on patient's age to complete this topicIPV VaccinesAged OutNo longer eligible based on patient's age to complete this topicMeningococcal B VaccineAged OutNo longer eligible based on patient's age to complete this topicMeningococcal VaccineAged OutNo longer eligible based on patient's age to complete this topicRotavirus VaccinesAged Out No longer eligible based on patient's age to complete this topic Medical Devices ImplantedTypeAreaManufacturerDevice IdentifierShelf Expiration DateModel / Serial / LotValve,Aortic,Conform-X,25 - [id number] - [id number] Implanted:Qty: 1 on 06/26/2023 by [facility]Pro[facility] ValveN/A: AortaATRI [id number]/ONXACE- 25 / [id number] / 4h V-Plate Implanted:Qty: 1 on 06/26/2023 by [facility]N/A: [id number] / / Description:LILY Bio Med6h H-Plate Implanted:Qty: 1 on 06/26/2023 by [facility]: NwrpxpkGgqcm252.102.06 / / Description:lily bio med4h Box Adi Implanted:Qty: 1 on 06/26/2023 by [facility]N/[facility]: [id number] / / Description:LILY BIO MED10 Mm Screws Mint Implanted:Qty: 4 on 06/26/2023 by [facility]: [id number] / / 16 Mm Screws Gold Implanted:Qty: 6 on 06/26/2023 by [facility]: [id number] / / Description:LILY BIO MED20 Mm Screws Magenta Implanted:Qty: 4 on 06/26/2023 by Fu[facility]: XqwhjabWycyu872.035.20 / / Description:LILY BIO MED Procedures Procedure NamePriorityDate/TimeAssociated DiagnosisCommentsMR CERVICAL SPINE W AND WO URQDJLCBMqjethm67/10/2025 1:04 PM EDT [facility] (CMS/HCC) MR THORACIC SPINE W XDQUBKDCKqzsjjd28/10/2025 1:04 PM EDT [facility] (CMS/HCC) MR THORACIC SPINE WO ZYDLBVIMBgndnoh71/14/2025 2:46 PM EDT Thoracic spondylosis from Last 3 Months Results * MR cervical spine w and wo contrast (12/09/2024 1:04 PM EDT)Anatomical Region LateralityModalitySpine, C-spineMagnetic ResonanceSpecimen (Source)Anatomical Location / LateralityCollection Method / VolumeCollection TimeReceived Time 12/09/2024 1:06 PM EDT Impressions 12/09/2024 2:34 PM EDT No significant abnormalities of the cervical cord to account for the patient's syrinx. Degenerative disc disease contributing to mild spinal canal stenosis at the C5-C6 and C6-C7 level. Moderate foraminal stenosis on the left at C3-C4. Electronically signed: Clay Alvarado MD. Narrative 12/09/2024 2:34 PM EDT MR CERVICAL SPINE W AND WO CONTRAST 12/09/2024 11:49 AM CLINICAL INDICATIONS: Thoracic syrinx Technique: Multiplanar multisequence MRI of the cervical spine was performed with and without contrast. COMPARISON: None. FINDINGS: Vertebral body heights are maintained. Modic 2 changes to the opposing endplates of C6 and C7. Small vertebral body hemangioma at C3. The study is motion degraded. Spinal cord is of normal caliber. No definite signal abnormality. No abnormal parenchymal or leptomeningeal enhancement. Straightening of normal cervical lordosis. Desiccation of the intervertebral discs most pronounced at T7 level. Spinal levels: C2-C3: No significant spinal canal or neural foraminal stenosis. C3-C4: Disc osteophyte complex eccentric to the left results in partial effacement of the left lateral recess. Moderate left foraminal stenosis. No significant spinal canal stenosis. C4-C5: Disc bulge. No significant spinal canal or neural foraminal stenosis. C5-C6: Disc bulge with indentation of the ventral thecal sac and abutment of the ventral surface of the spinal cord without cord signal abnormality. Mild spinal canal stenosis. Minimal right foraminal stenosis. C6-C7: Disc osteophyte complex indents the ventral thecal sac. Mild ligamentum flavum thickening. Mild spinal canal stenosis. No significant neural foraminal stenosis. Paraspinal soft tissues: Normal. Soft tissues of the neck: Normal. Procedure Note Clay Alvarado MD - 12/09/2024 MR CERVICAL SPINE W AND WO CONTRAST 12/09/2024 11:49 AM CLINICAL INDICATIONS: Thoracic syrinx Technique: Multiplanar multisequence MRI of the cervical spine wasperformed with and without contrast. COMPARISON: None. FINDINGS: Vertebral body heights are maintained. Modic 2 changes to theopposing endplates of C6 and C7. Small vertebral body hemangioma at C3. The studyis motion degraded. Spinal cord is of normal caliber. No definite signal abnormality. Noabnormal parenchymal or leptomeningeal enhancement. Straightening of normal cervical lordosis. Desiccation of the intervertebral discs most pronounced at T7 level. Spinal levels: C2-C3: No significant spinal canal or neural foraminal stenosis. C3-C4: Disc osteophyte complex eccentric to the left results in partial effacement of the left lateral recess. Moderate left foraminal stenosis.No significant spinal canal stenosis. C4-C5: Disc bulge. No significant spinal canal or neural foraminalstenosis. C5-C6: Disc bulge with indentation of the ventral thecal sac and abutmentof the ventral surface of the spinal cord without cord signal abnormality. Mildspinal canal stenosis. Minimal right foraminal stenosis. C6-C7: Disc osteophyte complex indents the ventral thecal sac. Mildligamentum flavum thickening. Mild spinal canal stenosis. No significant neuralforaminal stenosis. Paraspinal soft tissues: Normal. Soft tissues of the neck: Normal. IMPRESSION: No significant abnormalities of the cervical cord to account for thepatient's syrinx. Degenerative disc disease contributing to mild spinal canalstenosis at the C5-C6 and C6-C7 level. Moderate foraminal stenosis on the left at C3-C4. Electronically signed: Clay Alvarado MD. Authorizing ProviderResult TypeResult StatusAllBlanchard Valley Health System MRI PROCEDURES Final Result * MR thoracic spine w contrast (12/09/2024 1:04 PM EDT)Anatomical Region LateralityModalitySpine, T-spineMagnetic ResonanceSpecimen (Source)Anatomical Location / LateralityCollection Method / VolumeCollection TimeReceived Time 12/09/2024 1:06 PM EDT Impressions 12/09/2024 2:25 PM EDT Unchanged appearance of previously described syrinx extending from T6 to T8. No enhancing components are identified. No significant spinal canal or neural foraminal stenosis within the thoracic spine. No abnormal parenchymal or leptomeningeal enhancement. Electronically signed: Clay Alvarado MD. Narrative 12/09/2024 2:25 PM EDT EXAM: MR THORACIC SPINE W CONTRAST INDICATION: Thoracic syrinx COMPARISON: 11/12/2024 TECHNIQUE: Pre and postcontrast T1 sequences of the thoracic spine were obtained FINDINGS: Vertebral body hemangioma at T6. Redemonstrated minimal grade 1 anterolisthesis of T4 and T5. Vertebral body heights are normal. Satisfactory signal characteristics without suspicious osseous lesions or marrow replacing process. Redemonstration of a syrinx extending from approximately T6-T8. Overall size and configuration has not significantly changed compared to prior. No enhancing components are identified. No abnormal parenchymal or leptomeningeal enhancement. The spinal cord is of normal caliber and signal. No extradural fluid collections or masses. No significant spinal canal or neural foraminal stenosis within the thoracic spine. Paraspinal soft tissues are normal. Included chest and upper abdominal structures are normal. Procedure Note Clay Alvarado MD - 12/09/2024 EXAM: MR THORACIC SPINE W CONTRAST INDICATION: Thoracic syrinx COMPARISON: 11/12/2024 TECHNIQUE: Pre and postcontrast T1 sequences of the thoracic spine wereobtained FINDINGS: Vertebral body hemangioma at T6. Redemonstrated minimal grade 1anterolisthesis of T4 and T5. Vertebral body heights are normal. Satisfactory signal characteristics without suspicious osseous lesions or marrow replacingprocess. Redemonstration of a syrinx extending from approximately T6-T8. Overallsize and configuration has not significantly changed compared to prior. Noenhancing components are identified. No abnormal parenchymal or leptomeningeal enhancement. The spinal cord is of normal caliber and signal. Noextradural fluid collections or masses. No significant spinal canal or neural foraminal stenosis within thethoracic spine. Paraspinal soft tissues are normal. Included chest and upper abdominal structures are normal. IMPRESSION: Unchanged appearance of previously described syrinx extending from T6 to T8. No enhancing components are identified. No significant spinal canal or neural foraminal stenosis within thethoracic spine. No abnormal parenchymal or leptomeningeal enhancement. Electronically signed: Clay Alvarado MD. Authorizing ProviderResult TypeResult StatusAllison Zay [facility] MRI PROCEDURES Final Result * MR thoracic spine wo contrast (11/12/2024 2:46 PM EDT)Anatomical Region LateralityModalitySpine, T-spineMagnetic ResonanceSpecimen (Source)Anatomical Location / LateralityCollection Method / VolumeCollection TimeReceived Time 11/13/2024 7:51 AM EDT Impressions 11/13/2024 8:00 [...] ON 58:00 AM Electronically signed: Twyla Frost. Authorizing ProviderResult TypeResult StatusAllison Ovtrent [facility] Final Result from Last 3 Months Insurance Advance Directives * Full Code (Latest Code Status on File) Date ActivatedDate InactivatedComments06/25/2024 12:46 PM06/26/2024 6:48 PM * Full Code Date ActivatedDate InactivatedComments09/03/2023 2:39 PM09/06/2023 3:04 PM * Full Code Date ActivatedDate InactivatedComments06/20/2023 11:54 PM07/05/2023 5:50 PM Care Teams Team MemberRelationshipSpecialtyStart DateEnd Date Demetrius Parish MD [address] [facility] [place] [address] [facility]06/13/23
--- OUTSIDE RECORDS SUMMARY | 2025-02-09 15:42 | XMS_ITS | Encounter Summary ---
Author Organization [facility] Address [address] [place] [address] Care Team Providers Care Finish Rolls Operator Name Role Phone Demetrius Parish MD Primary Care Provider [phone] Encounter Details DateTypeDepartmentCare Team (Latest Contact Info)Xltkvismxhd16/07/2025Telephone [facility] Pain Medicine [address] [place] [phone] Natalia Santos LPN Social History Tobacco UseTypesPacks/DayYears UsedDateSmoking Tobacco: NeverPassive Smoke Exposure: NeverSmokeless Tobacco: NeverAlcohol UseStandard Drinks/WeekComments Not Currently0 (1 standard drink = 0.6 oz pure alcohol)[facility] Utilities AnswerDate RecordedIn the past 12 months has the electric, gas, oil, or water [employer] threatened to shut off services in your home?06/25/2024Humiliation, Afraid, Rape, and Kick questionnaireAnswerDate RecordedWithin the last year, have you been afraid of your partner or ex-partner?No01/18/2025Within the last year, have you been humiliated or emotionally abused in other ways by your partner or ex-partner?No01/18/2025Within the last year, have you been kicked, hit, slapped, or otherwise physically hurt by your partner or ex-partner?No 01/18/2025Within the last year, have you been raped or forced to have any kind of sexual activity by your partner or ex-partner?No01/18/2025Overall Financial Resource Strain (CARDIA)AnswerDate RecordedHow hard is it for you to pay for the very basics like food, housing, medical care, and heating?Not very hard 06/25/2024PHQ-2AnswerDate RecordedPatient Health Questionnaire-2 Score0 01/18/2025UT Safety & EnvironmentAnswerDate RecordedWithin the last year, have you been afraid of your partner or ex-partner?No09/26/2023Within the last year, have you been humiliated or emotionally abused in other ways by your partner or ex-partner?No09/26/2023Within the last year, have you been kicked, hit, slapped, or otherwise physically hurt by your partner or ex-partner?No09/26/2023Within the last year, have you been raped or forced to have any kind of sexual activity by your partner or ex-partner?No09/26/2023In the past year have you been physically or sexually abused?Unrecognized value09/26/2023TransportationAnswer Date RecordedIn the past 12 months, has lack of transportation kept you from medical appointments or from getting medications?No06/25/2024Lack of Transportation (Non-Medical)Not on file06/25/2024Housing Stability Vital Sign AnswerDate RecordedIn the last 12 months, was there a time when you were not able to pay the mortgage or rent on time?No06/25/2024Number of Times Moved in the Last YearNot on file06/25/2024t any time in the past 12 months, were you homeless or living in a mcc (including now)?No06/25/2024Hunger Vital Sign AnswerDate RecordedWithin the past 12 months, you worried that your food would run out before you got the money to buymore.Never true06/25/2024Ran Out of Food in the Last YearNot on file06/25/2024Sex and Gender InformationValueDate RecordedSex Assigned at QteamVstp31/15/2024 7:24 AM EDTLegal HxaOdim1206/10/2023 10:31 AM EDTGender ImlovxrrBilc81/15/2024 7:24 AM EDTSexual Orientation Heterosexual or Byfevlfz02/15/2024 7:24 AM EDTdocumented as of this encounter Miscellaneous Notes * Telephone Encounter - Natalia Santos LPN - 02/05/2025 1:59 PM EST LVM for patient to discuss scheduling an office visit documented in this encounter Plan of Treatment DateTypeDepartmentCare Team (Latest Contact Info)Lcboyorgwuk81/17/2025 9:00 AM ESTAppointment [facility] Procedure Room [address] [phone] Minerva Smith MD [address] [place] [phone] 07/07/2025 11:30 AM EDTAppointment [facility] MR Imaging [address] [place] [phone] 07/07/2025 12:15 PM EDTAppointment [facility] [address] [place] [phone] 07/07/2025 1:00 PM EDTFollow-Up [facility] Surgery Clinic [address] [place] [phone] Ninfa Collazo, LEODAN [address] [place] [phone] documented as of this encounter Visit Diagnoses Not on filedocumented in this encounter Care Teams Team MemberRelationshipSpecialtyStart DateEnd Date Demetrius Parish MD [address] [address] PCP - General06/13/23documented as of this encounter
--- OUTSIDE RECORDS SUMMARY | 2025-02-09 15:42 | XMS_ITS | Clinical Summary ---
Author Organization [facility] Address [address], [address] [place] [address] [address] Care [address] Train Driver Name Role Phone Natalia Aguillon EZE Garcia CNP Primary Care Provide r Allergies No known active allergies Medications MedicationSigDispense QuantityRefillsLast FilledStart DateEnd DateStatus lisinopril (PRINIVIL;ZESTRIL) 5 MG tablet Take 5 mg by mouth dailyActive atorvastatin (LIPITOR) 20 MG tablet Take 20 mg by mouth fyfefnz2004/18/2020ctive acetaminophen (TYLENOL) 500 MG tablet Take 2 tablets by mouth every 8 hours for 5 days 30 tablet 08/02/2020ctive ibuprofen (ADVIL;MOTRIN) 600 MG tablet Take 1 tablet by mouth 4 times daily as needed for Pain 20 tablet 08/02/2020ctive Active Problems ProblemNoted DateDiagnosed DateMediastinal yspeyzef43/03/2021 Social History Tobacco UseTypesPacks/DayYears UsedDateSmoking Tobacco: NeverSmokeless Tobacco: NeverAlcohol UseStandard Drinks/WeekCommentsNot Currently0 (1 standard drink = 0.6 oz pure alcohol)Sex and Gender InformationValueDate RecordedSex Assigned at BirthNot on fileLegal MynXiml2208/01/2020 2:47 PM EDTGender IdentityNot on file Sexual OrientationNot on file Last Filed Vital Signs Vital SignReadingTime TakenCommentsBlood Jcloisbp766/95008/02/2020 7:14 AM EDT Gvqyq593808/02/2020 7:14 AM BIEQnfemxqkwqc39.8 ??C (98.2 ??F)08/02/2020 7:14 AM EDTRespiratory Bprc0688/06/2020 7:14 AM EDTOxygen Tjloyvmpzs04%08/02/2020 9:45 AM EDTInhaled Oxygen Concentration--Hebcvz013.8 kg (392 lb)08/01/2020 2:54 PM FNUSkxlfg470.4 cm (6' 1 )08/01/2020 2:54 PM EDTBody Mass Index51.72008/01/2020 2:54 PM EDT Plan of Treatment Not on file Insurance [address], [place] [id number] Advance Directives * Full Code (Latest Code Status on File) Date ActivatedDate InactivatedComments08/01/2020 11:59 PM08/02/2020 7:26 PM Care Teams Team MemberRelationshipSpecialtyStart DateEnd Date Natalia Aguillon APRN - LEODAN [id number] [place] [address] PCP - GeneralNurse Practitioner08/01/20
--- OUTSIDE RECORDS SUMMARY | 2025-02-09 15:42 | XMS_ITS | Clinical Summary ---
Author Organization [facility] Address [address] [place] [address] Care Team Providers Care Health Services Coordinator Name Role Phone Demetrius Parish MD Primary Care Provider [phone] Allergies Active AllergyReactionsCriticalityNoted FhwqTvryxphzFbtlrbtkdxew11/18/2024 Other Reaction(s): Other Myalgias Igqraab3607/14/2024 Medications MedicationSigDispense QuantityRefillsLast FilledStart DateEnd DateStatus acetaminophen (Tylenol) 325 MG tablet every 4 (four) hoursActive aspirin 81 MG EC tablet 1 (one) time each day at the same timeActive baclofen (Lioresal) 20 MG tablet Take 20 mg by mouth in the morning and 20 mg at noon and 20 mg in the evening. 07/11/2023ctive cholecalciferol (Vitamin D-3) 50 MCG (1999) capsule 1 capsuleActive furosemide (Lasix) 40 MG tablet Take 40 mg by mouth every other day07/25/2023ctive metoprolol succinate XL (Toprol-XL) 25 MG 24 hr tablet Take 25 mg by mouth at fvwvtbx4707/18/2023ctive Multiple Vitamin (Multi-Vitamin) tablet Take 1 tablet by mouth in the morning.Active omeprazole (PriLOSEC) [address] capsule 07/18/2023ctive potassium chloride CR (Klor-Con M20) 20 MEQ ER tablet Take 20 mEq by mouth in the morning.07/05/2023ctive warfarin (Coumadin) 5 MG tablet 07/05/2023ctive Farxiga 10 MG Take 10 mg by mouth DailyActive valsartan (Diovan) 40 MG tablet Active spironolactone (Aldactone) 25 MG tablet 25 mg 1 (one) timeActive cyanocobalamin (Vitamin B-12) 1000 MCG tablet Take 1,000 mcg by mouth in the morning.Active ezetimibe (Zetia) 10 MG tablet Take 10 mg by mouth in the morning.4Active Active Problems No known active problems Family History Medical HistoryRelationNameCommentsNo Known ProblemsBrotherepilepsyFatherCancer MotherMargo OrtnerRelationNameStatusCommentsBrotherFatherDeceasedMotherMargo OrtnerDeceased Social History Tobacco UseTypesPacks/DayYears UsedDateSmoking Tobacco: NeverSmokeless Tobacco: NeverAlcohol UseStandard Drinks/WeekCommentsNot Currently0 (1 standard drink = 0.6 oz pure alcohol)rarely ; caffeine intake: 1-2 cups per day coffee, soda/pop Sex and Gender InformationValueDate RecordedSex Assigned at BirthNot on file Legal YlrQkaa2706/13/2022 6:38 PM EDTGender IdentityNot on fileSexual Orientation Not on file Last Filed Vital Signs Vital SignReadingTime TakenCommentsBlood Pikmfkpr803/80004/02/2019 12:00 PM EST Pulse--Kocbnevazti30.3 ??C (97.4 ??F)02/04/2024 1:55 PM ESTRespiratory Rate-- Oxygen Saturation--Inhaled Oxygen Concentration--Tkdpbo071 kg (360 lb)07/14/2024 3:27 PM PWFFzgrns777.3 cm (5' 11 )07/14/2024 3:27 PM EDTBody Mass Index50.21 07/14/2024 3:27 PM EDT Plan of Treatment Not on file Insurance * Guarantor: Pardeep Engel EAccount TypeRelation to PatientDate of BirthPhone Billing AddressPersonal/MlvclvOdks72/05/1971 [address] [place] [phone] Care Teams Team MemberRelationshipSpecialtyStart DateEnd Demetrius Parish MD PCP - GeneralFamily Sseclywk61/29/24
--- OUTSIDE RECORDS SUMMARY | 2025-02-09 15:43 | XMS_ITS | Clinical Summary ---
Author Organization [facility] Address [address] [place] [address] Phone Care Team Providers Care Performance Test Consultant Name Role Phone Unavailable Primary Care Provider Unavailabl e Social History Tobacco UseTypesPacks/DayYears UsedDateSmoking Tobacco: Never AssessedSex and Gender InformationValueDate RecordedSex Assigned at BirthNot on fileLegal Sex Male04/24/2024 10:41 AM ESTGender CwsftcqsBqub55/26/2025 3:07 AM ESTSexual KbnwyxtftddOoczxiiy87/26/2025 3:07 AM EST Plan of Treatment Health MaintenanceDue DateLast DoneCommentsCT Vzfipkmzhmfm50/05/1973FIT-DNA (Cologuard)1972FIT1972HIV Kgxlwgdol44/05/1973Lipid Panel1972 Yearly Adult Brdotnzg43/05/1973MMR Vaccines (1 of 1 - Standard series)1973 Hepatitis C Ypjoyocmg84/05/1991Hepatitis A Vaccines (1 of 2 - Risk 2-dose series)10/04/1991Hepatitis B Vaccines (1 of 3 - 19+ 3-dose series)10/04/1991PSA Prostate Cancer Ejsxyfpqf18/05/2023Pneumococcal Vaccine (1 of 1 - PCV)2022 Zoster Vaccines (1 of 2)2022Influenza Vaccine (#1)/11/2014 COVID-19 Vaccine (1 - 2024- season)2024Diabetes Aarqgpbyo97/20/2026 04/20/2024, 08/18/2022, 05/19/2022, Additional history existsDTaP/Tdap/Td Vaccines (2 - Td or Tdap)6082578Pbmdmbesehwgo32/02/202705/05/2021 Ehnhswzcica72/17/07746104/17/2024, 07/31/2021olorectal Cancer Xymuviuup87/17/2035 HIB VaccinesAged OutNo longer eligible based on patient's age to complete this topicHPV VaccinesAged OutNo longer eligible based on patient's age to complete this topicIPV VaccinesAged OutNo longer eligible based on patient's age to complete this topicMeningococcal VaccineAged OutNo longer eligible based on patient's age to complete this topicRotavirus VaccinesAged OutNo longer eligible based on patient's age to complete this topic Insurance
--- OUTSIDE RECORDS SUMMARY | 2025-02-09 15:43 | XMS_ITS | Clinical Summary ---
Author Organization [facility] Address [address] [place] [address] Care Team Providers Care Landscaping Manager Name Role Phone Natalia Aguillon APRNMarinaPLAYGROUND MONITOR Primary Care Provider Huan Barragan Unavailable Huan Barragan Unavailable Allergies Active AllergyReactionsCriticalityNoted DateCommentsAtorvastatinOther: See Gvjnxkbh62/18/2024 Other Reaction(s): Other Myalgias Myalgias Medications MedicationSigDispense QuantityRefillsLast FilledStart DateEnd DateStatus Omeprazole 40 mg capsule Indications:Gastroesophageal reflux disease, esophagitis presence not specified Take 1 capsule by mouth once daily. 30 capsule Active albuterol HFA (PROAIR HFA) 90 mcg/actuation inhaler Inhale 2 Puffs as instructed every 4 hours as needed for wheezing/shortness of breath. 18 g ctive rosuvastatin (CRESTOR) 40 mg tablet Take 1 tablet by mouth once daily. 90 tablet ctive lisinopril (ZESTRIL) 10 mg tablet Indications:Essential hypertensionTAKE 1 TABLET BY MOUTH EVERY DAY 90 tablet ctive warfarin (COUMADIN) 5 mg tablet Take 5mg daily, or as directed by the anticoagulation service provider. Dose may change, based on INR results.07/05/2023ctive valsartan (DIOVAN) 40 mg tablet Take 40 mg by mouth.09/07/2023ctive spironolactone (ALDACTONE) 25 mg tablet take 1 tablet by mouth once a day as directedActive metoprolol succinate ER (TOPROL XL) 25 mg 24 hr tablet Take 25 mg by mouth.07/18/2023ctive HYDROcodone-Acetaminophen (NORCO) 7.5-325 mg per tablet Take 1 tablet by mouth two times a day as needed.Active gabapentin (NEURONTIN) 400 mg capsule Take 400 mg by mouth two times a day.Active furosemide (LASIX) 40 mg tablet Take 40 mg by mouth every morning.Active dapagliflozin propanediol (FARXIGA) 10 mg tablet Take 10 mg by mouth.09/26/2023ctive Cholecalciferol, Vitamin D3, 50 mcg (2,000 unit) cap 1 capsule.Active baclofen 20 mg tablet Take 20 mg by mouth.07/11/2023ctive Active Problems ProblemNoted DateDiagnosed DateNontraumatic tear of left rotator cuff04/20/2024 Prosthetic joint qesrprqkl25/20/2025Elevated vvcbibd0604/20/2024Impaired fasting blood sugar2S/P shoulder replacement, left02/15/2022History of colon bfwxzc7802/15/2022hronic pain due to odmlnp2602/15/20226743Rtykaryazez50/17/2022Fatty metamorphosis of liver08/15/2021Lung leppsuh1103/10/2021 Assessment & Plan (07/26/2021 1:39 PM EDT): Assessment: CT 01/2021 IMPRESSION: 1. ??Bilateral subcentimeter pulmonary nodules, largest measuring approximately 6 mm, as above. See detailed follow-up recommendations below. 2. ??No substantial intrathoracic adenopathy is identified. 3. ??Incidental note is made of hepatic steatosis and cholelithiasis on the images through the upper abdomen. Environmental ulibyuays88/10/2021Obstructive sleep apnea hfjwsyjk05/10/2021 Assessment & Plan (07/26/2021 1:38 PM EDT): Assessment: uses BiPAP nightly Shortness of mxkohm0103/10/2021 Assessment & Plan (07/26/2021 1:39 PM EDT): Assessment: Flovent daily and albuterol PRN, ~3-5 times/week Jegrfxsn03/10/2021Post-operative state1Carpal tunnel syndrome, right 1Carpal tunnel syndrome, left1Carpal tunnel syndrome, svpbzcicg68/13/2021Mediastinal ijpqhaxb73/03/2021Carotid stenosis, left 11/26/2019Morbid obesity with BMI of 50.0-59.9, adult11/26/2019 Assessment & Plan (07/26/2021 1:39 PM EDT): Assessment: BMI 53 Arthralgia of multiple sites11/26/2019Essential opqjuewpccyl29/27/2020 Assessment & Plan (07/26/2021 1:38 PM EDT): Assessment: controlled with medication, 136/78 yesterday Mixed jqnhucyydzpqqz59/27/2020 Assessment & Plan (07/26/2021 1:38 PM EDT): Assessment: taking statin Primary wyrxwsah77/27/6001Dmvxevapaozwjjo98/27/2020Obesity, Class III, BMI 40- 49.9 (morbid obesity)07/30/2017 Immunizations ImmunizationAdministration DatesNext Dueinfluenza (IIV3) vaccine, age 6 mo - 64 yr, trivalent (AFLURIA, FLULAVAL, FLUVIRIN, FLUZONE)02/07/2015tetanus diphtheria pertussis (Tdap) vaccine, age 7+ yr (ADACEL, BOOSTRIX)11/17/2015 Family History Medical HistoryRelationCommentsGERDBrotherEpilepsyFatherAllergiesMotherCOPD MotherSmokerLung CancerMotherAsthmaNo Family HistoryDVTNo Family HistoryRelation StatusCommentsBrotherFatherAliveMaternal GrandfatherDeceasedMaternal Grandmother DeceasedMotherAlivePaternal GrandfatherDeceasedPaternal GrandmotherDeceased Social History Tobacco UseTypesPacks/DayYears UsedDateSmoking Tobacco: NeverSmokeless Tobacco: Never Tobacco Cessation:Counseling Given: Not Answered Alcohol UseStandard Drinks/WeekCommentsYes0 (1 standard drink = 0.6 oz pure alcohol)RareSocial Connection and Isolation PanelAnswerDate RecordedIn a typical week, how many times do you talk on the phone with family, friends, or neighbors?More than three times a week08/20/2022How often do you get together with friends or relatives?Patient zbhgxitc29/22/2023How often do you attend rastafari or quaker services?Patient cdjiuulp37/22/2023o you belong to any clubs or organizations such as rastafari groups, unions, [employer] or athletic saskia ups, or school groups?No08/20/2022How often do you attend meetings of the clubs or organizations you belong to?Never08/20/2022re you , , , , never , or living with a partner?Kmspapbb71/22/2023 AUDIT-CAnswerDate RecordedQ1: How often do you have a drink containing alcohol? Never08/20/2022Q2: How many drinks containing alcohol do you have on a typical day when you are drinking?Patient does not drink08/20/2022Q3: How often do you have six or more drinks on one occasion?Never08/20/2022Overall Financial Resource Strain (CARDIA)AnswerDate RecordedHow hard is it for you to pay for the very basics like food, housing, medical care, and heating?Not hard at all 08/20/2022HQ-2AnswerDate RecordedPHQ-2 vqgry880Finlakeview hospital Gordon of Occupational Health - Occupational Stress QuestionnaireAnswerDate RecordedDo you feel stress - tense, restless, nervous, or anxious, or unable to sleep at night because yourmind is troubled all the time - these days?Not at all08/20/2022 Exercise Vital SignAnswerDate RecordedOn average, how many days per week do you engage in moderate to strenuous exercise (like a brisk walk)?4 days08/20/2022On average, how many minutes do you engage in exercise at this level?30 min 08/20/2022Hunger Vital SignAnswerDate RecordedWithin the past 12 months, you worried that your food would run out before you got the money to buymore.Never true08/20/2022Within the past 12 months, the food you bought just didn't last and you didn't have money to get more.Never true08/20/2022RAPARE - TransportationAnswerDate RecordedIn the past 12 months, has lack of transportation kept you from medical appointments or from getting medications?No 08/20/2022In the past 12 months, has lack of transportation kept you from meetings, work, or from getting things needed for daily living?No08/20/2022 Housing Stability Vital SignAnswerDate RecordedIn the last 12 months, was there a time when you were not able to pay the mortgage or rent on time?No08/20/2022In the last 12 months, how many places have you lived?In the last 12 months, was there a time when you did not have a steady place to sleep or slept in ashelter (including now)?No08/20/2022rea Deprivation IndexAnswerDate RecordedNational Score (1-100), lower number is lower ljbc196108/20/2022State Score (1-10), lower number is lower iftt8913Data from: https://www.neighborhoodatlas.medicine.[facility].edu/. Last address used for Dimitri Sarmiento 08/20/2022EducationAnswerDate RecordedWhat is the highest level of school you have completed or the highest degree you have received?Associate degree: occupational, technical, or vocational program 08/06/2020ex and Gender InformationValueDate RecordedSex Assigned at BirthMale 08/03/2021 9:10 AM EDTLegal VvyJacz38/02/2012 8:02 AM ESTGender IdentityMale 02/14/2021 10:19 AM ESTSexual MviblprailyZwfqnepk69/16/2021 10:19 AM EST Last Filed Vital Signs Vital SignReadingTime TakenCommentsBlood Fcpftcfj786/72008/20/2022 5:28 PM EDT manual by ldpUpqhk3615/22/2023 5:10 PM HBQAazetizivvx92.3 ??C (97.3 ??F) 07/31/2021 11:45 AM EDTRespiratory Wnvu093609/22/2021 11:33 AM EDTOxygen Gatlpagiuw271%08/20/2022 5:10 PM EDTInhaled Oxygen Concentration--Bwplel719.9 kg (390 lb)08/20/2022 5:10 PM JRQEtuwgs476.4 cm (6' 1 )08/20/2022 5:10 PM EDTBody Mass Index51.45008/20/2022 5:10 PM EDT Plan of Treatment Health MaintenanceDue DateLast DoneCommentsAnxiety Ihqmokoqo55/05/1991Depression Fhudcqgie35/05/1991Hepatitis B Vaccine (1 of 3 - 19+ 3-dose series)10/04/1991CT Btqnayojkfvu23/05/2018Cologuard (FIT-DNA)2017Fecal Occult Blood2017 Dblhjlevgbpqj79/05/2018Pneumococcal Vaccine: 50+ (1 of 1 - PCV)2022 Shingrix Vaccine (1 of 2)2022nnual PCP Team Chronic Disease Visit /0214Urptzzzpjrt53/02/202505/2Colorectal Cancer Screening 5Covid-19 Vaccine ( - season)2024Influenza Vaccine (#1) /11/2014DTaP,Tdap,Td Vaccine (2 - Td or Tdap)/ Diabetes Urcllqmyo68/, 09/06/2023, 09/05/2023, Additional history existsLipid Glgxkgyte46/, 05/19/2022, 02/10/2022, Additional history existsHIV ArjrwrlsuWhqsoowcj28/24/2020Hepatitis C Screening Abkwaothf29/24/2020 Procedures Procedure NamePriorityDate/TimeAssociated DiagnosisCommentsHEMOGLOBIN J0JVhqcvfu 04/20/2024 4:19 PM EST Elevated glucose LIPID PANEL, VAZOQCKDlirqxw11/20/2023 8:18 AM EDT Routine lab draw COLONOSCOPY QVLCEVPCPYWnkxwjs51/02/2022 10:37 AM EDT Dark stools HIV 1/2 COMBO WITH REFLEX TO MIRIUGJPFLGXOGFTicjnbq83/24/2020 4:09 PM EDT Screening for HIV (human immunodeficiency virus) *HEP C TZNvphnpx99/24/2020 4:09 PM EDT Special screening examination for viral disease from Last 3 Months or Most Recently Relevant to Health Maintenance Results * HEMOGLOBIN A1C (04/20/2024 4:19 PM EST)ComponentValueRef RangeTest Method Analysis TimePerformed AtPathologist SignatureHemoglobin A1C5.14.3 - 5.6 % 04/21/2024 5:25 AM [facility]Comment:[place] Diabetes Association guidelines indicate that patients with HgbA1c in the range 5.7-6.4% are at increased risk for development of diabetes, and intervention by lifestyle modification may be beneficial. HgbA1c greater or equal to 6.5% is considered diagnostic of diabetes.Estimated Average Glucose 100mg/dL04/21/2024 5:25 AM [facility] LABComment:eAG: (Estimated average glucose) is a calculated value from HgbA1c and is territory account representative of the average blood glucose level in the last 2-3 month period.Specimen (Source)Anatomical Location / LateralityCollection Method / VolumeCollection TimeReceived TimeBloodBLOOD SPECIMEN / UnknownVenipuncture / Ykbelws4004/20/2024 4:19 PM EST04/20/2024 4:20 PM EST Narrative Authorizing ProviderResult TypeResult StatusVahimomo Mcdonald MDLABORATORYFinal ResultPerforming OrganizationAddressCity/State/ZIP CodePhone Number [facility] [address] * (ABNORMAL) LIPID PANEL BASIC (08/18/2022 8:18 AM EDT)ComponentValueRef Range Test MethodAnalysis TimePerformed AtPathologist SignatureCholesterol, Wxgyg980 (H)<200 mg/dL08/18/2022 9:22 AM EDTAMHERST [facility]LAND [facility] LABComment: <200 mg/dL, Desirable 200-239 mg/dL, Borderline high >239 mg/dL, High Jywxigtmggtk536(H)<150 mg/dL08/18/2022 9:22 AM [facility] LABComment: <150 mg/dL, Normal 150-199 mg/dL, Borderline high 200-499 mg/dL, High >499 mg/dL, Very high HDL Pscavwhnqrp61>39 mg/dL08/18/2022 9:22 AM [facility] LABComment: 40-59 mg/dL, Acceptable >59 mg/dL, High: Negative risk factor for coronary heart disease <40 mg/dL, Low: Positive risk factor for coronary heart disease Non HDL Eqwssmgyynr022(H)<130 mg/dL08/18/2022 9:22 AM [facility] LABComment: <130 mg/dL, Optimal 130-159 mg/dL, Near optimal/above optimal 160-189 mg/dL, Borderline high 190-219 mg/dL, High >219 mg/dL, Very high Secondary prevention optimal non HDL Cholesterol levels are recommended to be <100 mg/dL Fasting Jmgb23qgw68/20/2023 9:22 AM [facility] LABVLDL Cdyyklicjqm19(H)<30 mg/dL08/18/2022 9:22 AM [facility] LABTC:HDL Ratio5.68(H)<5.10008/18/2022 9:22 AM [facility] LABLDL Cholesterol, Cvqnbmfzff653(H)<100 mg/dL08/18/2022 9:22 AM [facility] LABComment: <100 mg/dL, Optimal 100-129 mg/dL, Near optimal/above optimal 130-159 mg/dL, Borderline high 160-189 mg/dL, High >189 mg/dL, Very high Secondary prevention optimal LDL Cholesterol levels are recommended to be < 70 mg/dL LDL:HDL Ratio3.85(H)<2.54008/18/2022 9:22 AM [facility] LABComment: Reference: 1. National Cholesterol Education Program ATP III Guideline At-A-Glance Quick Desk Reference: National Heart, Lung, and Blood Gordon. National Institutes of Health. 2001: NIH Publication No. 01-3305. 2. An International Atherosclerosis Society position paper: global recommendations for the management of dyslipidemia: executive summary, Atherosclerosis. 2014: 232(2):410-413. Specimen (Source)Anatomical Location / LateralityCollection Method / Volume Collection TimeReceived TimeBloodBLOOD SPECIMEN / UnknownVenipuncture / Unknown 08/18/2022 8:18 AM EDT08/18/2022 8:18 AM EDT Narrative Authorizing ProviderResult TypeResult StatusVictorjulee Aguillon APRN.CNPLABORATORY Final ResultPerforming OrganizationAddressCity/State/ZIP CodePhone Number [facility] [address] [place] [phone], * COLONOSCOPY DIAGNOSTIC (07/31/2021 10:37 AM EDT)Anatomical RegionLaterality ModalityOtherSpecimen (Source)Anatomical Location / LateralityCollection Method / VolumeCollection TimeReceived Time07/31/2021 10:37 AM EDT Narrative 07/31/2021 11:44 AM EDT [facility] Gastrointestinal Endoscopy Patient Name: Pardeep Engel Procedure Date: 07/31/2021 10:37 AM Date of : 1970 Admit Type: Outpatient Age: 50 Room: [facility] Gender: Male Note Status: Finalized Attending MD: Kahlil Patel MD Procedure: ? Colonoscopy Indications: ? dark stools per PCP note Providers: ? Kahlil Patel MD Patient Profile: ? Refer to note in patient chart for documentation of ? history and physical. Last Colonoscopy: none. The ? patient's first colonoscopy is today. Referring Physician: Natalia Aguillon CNP (Referring MD) Medicines: ? Propofol per Anesthesia Complications: ? No immediate complications. Estimated blood loss: ? Minimal. Procedure: ? Pre-Anesthesia Assessment: ? - Prior to the procedure, a History and Physical was ? performed, and patient medications and allergies were ? reviewed. The patient's tolerance of previous ? anesthesia was also reviewed. The risks and benefits ? of the procedure and the sedation options and risks ? were discussed with the patient. All questions were ? answered, and informed consent was obtained. Prior ? Anticoagulants: The patient has taken no previous ? anticoagulant or antiplatelet agents. ASA Grade ? Assessment: II - A patient with mild systemic ? disease. After reviewing the risks and benefits, the ? patient was deemed in satisfactory condition to ? undergo the procedure. ? After I obtained informed consent, the scope was ? passed under direct vision. Throughout the procedure, ? the patient's blood pressure, pulse, and oxygen ? saturations were monitored continuously. The ? Colonoscope was introduced through the anus and ? advanced to the cecum, identified by appendiceal ? orifice and ileocecal valve. The ileocecal valve and ? the rectum were photographed. The colonoscopy was ? somewhat difficult due to a tortuous colon. The ? quality of the bowel preparation was fair. The ? patient tolerated the procedure. Scope Withdrawal Time: 0 hours 13 minutes 58 seconds Moderate Sedation: ? See the other procedure note for documentation of moderate sedation ? with intraservice time. ? See the other procedure note for documentation of moderate sedation ? with intraservice time. ? MAC anesthesia was administered by the anesthesia team. Total Procedure Duration: 0 hours 33 minutes 16 seconds Findings: ? The perianal and digital rectal examinations were normal. ? A 6 mm polyp was found in the sigmoid colon. The polyp was ? semi-pedunculated. The polyp was removed with a hot snare. Resection ? and retrieval were complete. Verification of patient identification ? for the specimen was done by the lead slot technician using the patient's name, ? date and medical record number. Estimated blood loss was ? minimal. ? The colon (entire examined portion) was mildly tortuous. ? The exam was otherwise without abnormality on direct and retroflexion ? views. Impression: ?- One 6 mm polyp in the sigmoid colon, removed with a ? hot snare. Resected and retrieved. ? - Tortuous colon. ? - The examination was otherwise normal on direct and ? retroflexion views. Recommendation: ?- Discharge patient to home (ambulatory). ? - High fiber diet. ? - Repeat colonoscopy in 5 years for surveillance. ? - Return to my office PRN. ? - Patient has a contact number available for ? emergencies. The signs and symptoms of potential ? delayed complications were discussed with the ? patient. Return to normal activities tomorrow. ? Written discharge instructions were provided to the ? patient. ? - Continue present medications. Procedure Code(s): ?? --- Professional --- ? 35679, Colonoscopy, flexible; with removal of ? tumor(s), polyp(s), or other lesion(s) by snare ? technique Diagnosis Code(s): ?? --- Professional --- ? 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 K63.5, Polyp of colon CPT copyright 2019 [place] [employer]. All rights reserved. The codes documented in this report are preliminary and upon fourth officer review may be revised to meet current compliance requirements. Attending Participation: ? I personally performed the entire procedure. Scope In: 11:03:57 AM Scope Out: 11:37:13 AM MD Kahlil Gold MD 07/31/2021 11:44:54 AM This report has been signed electronically by Kahlil Patel MD Number of Addenda: 0 Note Initiated On: 07/31/2021 10:37 AM Estimated Blood Loss: ? Estimated blood loss was minimal. Authorizing ProviderResult TypeResult StatusVicjay Aguillon APRN.CNPDIGESTIVE DISEASEFinal Result * HIV 1 2 COMBO(AG/AB),WITH REFLEX TO DIFFERENTIATION (11/23/2019 4:09 PM EDT) ComponentValueRef RangeTest MethodAnalysis TimePerformed AtPathologist SignatureHIV 12 Combo (Ag/Ab)Non ReactiveNon Obcqwvqu70/25/2020 11:27 AM EDT [facility] LaboratoriesHIV 1/2 Ab ConfirmatoryTest Not Indicated 11/24/2019 11:27 AM [facility] LaboratoriesHIV InterpretationNegative 11/24/2019 11:27 AM [facility] LaboratoriesComment: No evidence of HIV-1 or HIV-2 infection. Should recent infection be suspected, repeat testing may be considered 2-3 weeks after this draw. HIV Information: [place] Rev. Code 3701.243(E): This information has been disclosed to you from confidential records protected from disclosure by state law. ??You shall make no further disclosure of this information without the specific, written, and informed release of the individual to whom it pertains or as otherwise permitted by state law. A general authorization for the release of medical or other information is not sufficient for the purpose of the release of HIV test results or diagnoses. Specimen (Source)Anatomical Location / LateralityCollection Method / Volume Collection TimeReceived TimeBlood specimen (specimen)BLOOD SPECIMEN / Unknown 11/23/2019 4:09 PM EDT11/23/2019 4:11 PM EDT Narrative Authorizing ProviderResult TypeResult StatusNatalia Aguillon APRN.CNPLABORATORY Final ResultPerforming OrganizationAddressCity/State/ZIP CodePhone Number [facility] [address] [place] [address] [facility] [address] [place] [address] * HEP C AB IA W/CONF SCRN (11/23/2019 4:09 PM EDT)ComponentValueRef RangeTest MethodAnalysis TimePerformed AtPathologist SignatureHep C Antibody IANegative Rxcxnztu60/25/2020 11:27 AM EDTCWooster Community Hospital LaboratoriesSpecimen (Source) Anatomical Location / LateralityCollection Method / VolumeCollection Time Received TimeBlood specimen (specimen)BLOOD SPECIMEN / Oymdifk7711/23/2019 4:09 PM EDT11/23/2019 4:11 PM EDT Narrative Authorizing ProviderResult TypeResult StatusVictoria Pal HONGCNPLABORATORY Final ResultPerforming OrganizationAddressCity/State/ZIP CodePhone Number [facility] [address] [place] [address] [facility] [address] [place] [address] from Last 3 Months or Most Recently Relevant to Health Maintenance Insurance * Guarantor: Sravani Engel TypeRelation to PatientDate of BirthPhone Billing AddressPersonal/StgyejOrae57/05/1971 [address] [phone] Care Teams Team MemberRelationshipSpecialtyStart DateEnd Date Nataila Aguillon APRN.PLAYGROUND MONITOR [address] [place] [address] [facility] - [facility] Medicine11/23/19 Huan Barragan [address] [place] [address] BfzglifvyQneaolumblh00/31/24 Huan Barragan [address] [place] [address] ReferringOrthopedics04/03/24
--- OUTSIDE RECORDS SUMMARY | 2025-02-09 15:43 | XMS_ITS | Patient Health Record ---
Author Organization [facility] [place] Address [address] [place] [address] Care Team Providers Care Psychiatric Specialist Name Role Phone Conor Parish Primary Care Provider [phone] Allergies Allergen (clinical drug ingredient) Drug/Non Drug Allergy documented on EMR Reaction Allergy Type Onset Date Status gabapentin Gabapentin brain fog Drug Allergy ActivespironolactoneSpironolactonechest painDrug AllergyActiveSubstance with 1-fahkcgj-0-methylglutaryl-coenzyme A reductase inhibitor mechanism of action (substance)StatinsmuscleachesDrug AllergyActive Results Component Value Reference Range Notes AMMONIA Reviewed date:04/05/2024 05:30:55 PM Interpretation: Performing Lab: Notes/Report: [facility] , Ammonia 16 11-32 umol/L Performing Lab:see noteML - [facility] LBBNP Reviewed date:04/05/2024 05:30:55 PM Interpretation: Performing Lab: Notes/Report: [facility] ,NT Pro B Type Natriuretic Pept85.0<=900.0 pg/mLPerforming Lab:see noteML - [facility] LBCBC AUTO DIFF Reviewed date:04/05/2024 05:30:55 PM Interpretation: Performing Lab: Notes/Report: [facility] ,White Blood Count6.84.0-11.0 10 3/uLRed Blood Count5.264.70-6.10 10 6/uL Iovpyvdqty93.114.0-18.0 g/lDRtnqvqlnjj29.842.0-54.0 %Mean Corpuscular Vhjyph10.1 80.0-94.0 fLMean Corpuscular Dzgatniufz80.725.9-34.0 pgMean Corpuscular HGB Conc 33.029.9-35.2 g/dLRed Cell Distribution Width12.711.0-15.0 %Platelet Fxkxg344 150-450 10 3/uLMean Platelet Zertbo04.49.5-13.5 fLNeutrophils Percent Auto70.5 43.0-75.0 %Lymphocytes Percent Auto16.220.5-60.0 %Monocytes Percent Auto9.61.7- 12.0 %Eosinophils Percent Auto2.90.9-7.0 %Basophils Percent Auto0.70.2-2.0 % Immature Granulocytes Pct Auto0.10.0-0.5 %Neutrophils Absolute Auto4.81.4-6.5 10 3/uLLymphocytes Absolute Auto1.11.2-3.8 10 3/uLMonocytes Absolute Auto0.70.3-0.8 10 3/uLEosinophils Absolute Auto0.20.0-0.7 10 3/uLBasophils Absolute Auto0.10.0- 0.1 10 3/uLImmature Granulocytes Abs Auto0.010.00-0.03 10 3/uLPerforming Lab:see noteML - [facility] LBPROF 14(COMP METB) Reviewed date:04/05/2024 05:30:55 PM Interpretation: Performing Lab: Notes/Report: [facility] ,Kltuih663767-450 mmol/LPotassium4.43.5-5.1 mmol/CPypxjiom04950-007 mmol/LCarbon Bdqxtnq94.321.0-32.0 mmol/LAnion Gap11.0Pifcvkj75372-695 mg/dLBlood Urea Gnagjxlc72.07.0-18.0 mg/dLCreatinine1.090.70-1.30 mg/dLEstimated GFR ( Nika>60>=60 mL/min/1.73m 2Estimated GFR (Non- Magy>60>=60 mL/min/1.73m 2BUN Creatinine Ratio17.2Dukbyom6.18.5-10.1 mg/dLBilirubin Total0.50.2-1.0 mg/dL Aspartate Amino Sarfwtvuitb1544-20 U/LAlanine Vtzcmuhfdswfmihs7629-75 U/L Alkaline Dmfuqursikn4461-689 U/LTotal Protein7.26.4-8.2 g/dLAlbumin Level4.13.4- 5.0 g/dLGlobulin3.1Albumin Globulin Ratio1.3Performing Lab:see noteML - [facility] LBPTT Reviewed date:04/05/2024 05:30:55 PM Interpretation: Performing Lab: Notes/Report: [facility] ,Partial Thromboplastin Time43.222.3-36.[address] PARISH @BY Anita Dewitt at 1044Performing Lab:see noteML - [facility] LBBNP Reviewed date:11/06/2024 04:02:20 PM Interpretation: Performing Lab: Notes/Report: [facility] ,NT Pro B Type Natriuretic Pept83.0<=900.0 pg/mLPerforming Lab:see noteML - [facility] LBPROF 14(COMP METB) Reviewed date:11/06/2024 04:02:20 PM Interpretation: Performing Lab: Notes/Report: [facility] ,Ywfepk134595-588 mmol/LPotassium4.43.5-5.1 mmol/DPybjrids15349-146 mmol/LCarbon Vsklsde12.021.0-32.0 mmol/LAnion Gap7.9Exmkkav31573-026 mg/dLBlood Urea Nitrogen 18.07.0-18.0 mg/dLCreatinine1.060.70-1.30 mg/dLEstimated GFR ( Nika>60 >=60 mL/min/1.73m 2Estimated GFR (Non- Magy>60>=60 mL/min/1.73m 2BUN Creatinine Ratio17.3Bkbfksv6.08.5-10.1 mg/dLBilirubin Total0.60.2-1.0 mg/dL Aspartate Amino Fyeqrzorxvz8807-55 U/LAlanine Cqbjukztpjfpaepo9850-71 U/L Alkaline Mkwfnlqgifv5486-225 U/LTotal Protein7.46.4-8.2 g/dLAlbumin Level4.23.4- 5.0 g/dLGlobulin3.2Albumin Globulin Ratio1.3Performing Lab:see noteML - [facility] LBCA echo doppler complete Reviewed date:02/22/2024 09:24:55 AM Interpretation: Performing Lab: Notes/Report: Source Facility: [facility]-[address] [place] [address] Cardiology Report Signed Patient: NEHAL BAIG MR#: [id number] : 1970 Acct:[id number] Age/Sex: 53 / M ADM Date: 02/20/24 Loc: CARD Attending Dr: MARY GARCIA Ordering Physician: MARY GARCIA Date of Service: 02/20/24 Procedure(s): CA echo doppler complete Accession Number(s): [id number] cc: MARY GARCIA ; Chandrakant Parish M.D. Patient Name: NEHAL BAIG MR#: [id number] : 1970 Exam Date: 02/20/2024 Ordering Doctor: MARY GARCIA [facility] ECHOCARDIOGRAM REPORT PROCEDURE: CA ECHO DOPPLER [...] ROLLE Signed By: 02/20/242026 DD/ 25 TD/TT: Cream Maker:US right upper quadrant Reviewed date:04/15/2024 07:05:14 PM Interpretation: Performing Lab: Notes/Report: Source Facility: [place] [address] Ultrasound Report Signed Patient: NEHAL BAIG MR#: [id number] : 1970 Acct:[id number] Age/Sex: 53 / M ADM Date: 04/14/24 Loc: US Attending Dr: Chandrakant Parish M.D. Ordering Physician: Chandrakant Parish M.D. Date of Service: 04/14/24 Procedure(s): US right upper quadrant Accession Number(s): [id number] cc: Chandrakant Parish M.D. [place] [address] Patient Name: NEHAL BAIG MRN: [id number] date: 1970 Sex: M Assigned Patient Location: Current Patient Location: Accession/Order Number: [id number] Exam Date: 04/14/2024 18:08 Report Date: 04/15/2024 [...] M.D. Signed By: 04/15/24447 DD/ 4 TD/TT: Cream Maker:Prothrombin Time INR Reviewed date:06/22/2024 08:50:30 PM Interpretation: Performing Lab: Notes/Report: [facility] ,Prothrombin Time15.99.0-11.6 secINR1.57 DESIRED INR: 2.0-3.0 CONDITIONS NOT LISTED BELOW 2.5-3.5 FOR PROSTHETIC HEART VALVE REPLACEMENT 2.5-3.5 RECURRENT THROMBOSIS Performing Lab:see noteML - [facility] LBBNP Reviewed date:06/25/2024 07:49:41 PM Interpretation: Performing Lab: Notes/Report: [facility] ,NT Pro B Type Natriuretic Pept30.0<=900.0 pg/mLPerforming Lab:see noteML - [facility] LBPROF 14(COMP METB) Reviewed date:06/25/2024 07:49:41 PM Interpretation: Performing Lab: Notes/Report: [facility] ,Tgaqwo458028-539 mmol/LPotassium4.03.5-5.1 mmol/AMjdbyehv43373-872 mmol/LCarbon Gklqnau22.221.0-32.0 mmol/LAnion Gap11.6Uvlllpf0432-232 mg/dLBlood Urea Xzvanwjn99.07.0-18.0 mg/dLCreatinine1.110.70-1.30 mg/dLEstimated GFR ( Nika>60>=60 mL/min/1.73m 2Estimated GFR (Non- Magy>60>=60 mL/min/1.73m 2BUN Creatinine Ratio18.8Xhvufrr3.98.5-10.1 mg/dLBilirubin Total0.50.2-1.0 mg/dL Aspartate Amino Cuexstojhxl0706-96 U/LAlanine Neysgzilhzitqcgl6211-51 U/L Alkaline Gvhwawcwbev7874-614 U/LTotal Protein7.96.4-8.2 g/dLAlbumin Level4.53.4- 5.0 g/dLGlobulin3.4Albumin Globulin Ratio1.3Performing Lab:see note - [facility] LBTroponin I High Sensitivity Reviewed date:06/25/2024 07:49:41 PM Interpretation: Performing Lab: Notes/Report: [facility] ,Troponin I High Sensitivity5.54.0-76.1 pg/mL CUT-OFF POINTS HAVE BEEN ESTABLISHED BASED ON THE FOURTH UNIVERSAL DEFINITION OF MYOCARDIAL INFARCTION. THE UPPER REFERENCE LIMIT (URL) OF TROPONIN, DEFINED THE 99TH PERCENTILE OF cTnI DISTRIBUTION IN A REFERENCE POPULATION, HAS BEEN CONFIRMED THE DECISION THRESHOLD FOR MD DIAGNOSIS. 99TH PERCENTILE = 76.2 PG/ML NOTE: HIGH-SENSITIVITY TROPONIN ASSAY IS NOT INTENDED TO BE USED IN ISOLATION BUT SHOULD BE INTERPRETED IN CONJUNCTION WITH OTHER DIAGNOSTIC AND CLINICAL INFORMATION. Performing Lab:see note - [facility] LBECG 12 lead Reviewed date:06/28/2024 03:57:49 PM Interpretation: Performing Lab: Notes/Report: Source Facility: [facility]-[address] [place] [address] Electrocardiograph Report Signed Patient: NEHAL BAIG MR#: [id number] : 1970 Acct:[id number] Age/Sex: 53 / M ADM Date: 06/25/24 Loc: ER Attending Dr: Ordering Physician: Devin Sy M.D. 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 Measurements Intervals [place] Rate: 67 P: 51 MN: 162 QRS: 36 QRSD: 94 T: 245 [...] ROLLE Signed By: 06/26/241914 DD/ 4 TD/TT: Cream Maker:CA echo doppler complete Reviewed date:11/30/2024 02:04:57 PM Interpretation: Performing Lab: Notes/Report: Source Facility: [place] [address] Cardiology Report Signed Patient: NEHAL BAIG MR#: [id number] : 1970 Acct:[id number] Age/Sex: 54 / M ADM Date: 11/24/24 Loc: CARD Attending Dr: Zina Sandoval M.D. Ordering Physician: Zina Sandoval M.D. Date of Service: 11/24/24 Procedure(s): CA echo doppler complete Accession Number(s): [id number] cc: Zina Sandoval M.D.; Chandrakant Parish M.D. Patient Name: NEHAL BAIG MR#: [id number] : 1970 Exam Date: 11/24/2024 Ordering Doctor: DR ZINA SANDOVAL M.D. ECHOCARDIOGRAM REPORT PROCEDURE: CA ECHO DOPPLER COMPLETE INDICATIONS: Aortic valve stenosis COMPARISON: None. DESCRIPTION: COMPLETE ECHOCARDIOGRAM Real-time transthoracic echocardiography with 2D, M-mode, spectral and color flow Doppler performed. QUALITY: Technical quality was limited. LEFT VENTRICLE: Normal chamber size. Mildly thickened proximal septal wall. Global left ventricular systolic function is normal. No wall motion abnormalities. Calculated left ventricular ejection fraction is 68%. LV EF: 68% DIASTOLIC: Normal diastolic function ATRIAL SEPTUM: Visually appears intact LEFT ATRIUM: Normal chamber size. RIGHT ATRIUM: Moderate dilatation. RIGHT VENTRICLE: Normal chamber size. Normal right ventricular systolic function. TRICUSPID VALVE: Grossly normal. No stenosis with trivial regurgitation. Unable to evaluate pulmonary arterial pressure due to the lack of adequate tricuspid regurgitation signal MITRAL VALVE: Normal mobility and thickness. No evidence of mitral valve stenosis. There is no mitral annular calcification. Trivial mitral regurgitation. AORTIC VALVE: Mechanical valve with normal flow. DVI 0.44, AVA2.3cm2, Vmax 1.8m/s, peak/mean gradients 13/7.5mmHg.No aortic regurgitation. AORTIC ROOT: Normal diameter and appearance. Measuring 3.5cm. The ascending aorta measures 3.7cm PULMONIC VALVE: Normal thickness and mobility. No stenosis. No regurgitation. PERICARDIUM: No evidence of pericardial effusion. IVC: Collapes with inspirations. Normal size. PLEURA: CONCLUSION: Normal left ventricle systolic function without wall motion abnormalities, ejection fraction 68% Mild thickening of the proximal septal wall Mechanical aortic valve with normal Doppler flow, mean pressure gradient 7.5 mmHg, no regurgitation No other significant valvular abnormalities Normal right ventricular size and systolic function Adult Echocardiography Procedure Report Left Ventricle LVEDD (3.7 - 5.6 cm): 5.66 cm LVESD (2.2 - 4.0 cm): 4.30 cm LVIVS thickness (0.6 - 1.2 cm): 1.18 cm LVPW thickness (0.5 - 1.0 cm): 0.84 cm e': 0.14 m/s E - e': 6.42 LVOT Max Gradient: 2.50 mm[Hg] LVOT Area (cm2): 0.79 m/s Peak Velocity (LVOT): 0.79 m/s Mean Velocity (LVOT): 0.54 m/s LVOT Diameter 2.42 cm Left Ventricular Ejection Fraction: 67.66 % Left Atrium LA Volume Index (2D A2C): 22.05 ml/m2 Left Atrium Systolic Dimension: 5.07 cm Mitral Valve MV E to A Ratio: 1.92 MV Max Gradient: MV Mean Gradient: Mitral Valve A-Wave Peak Velocity: 0.47 m/s Mitral Valve E-Wave Peak Velocity: 0.90 m/s Cardiovascular Orifice Area: Right Ventricle RV Internal Diastolic Dimension: 4.09 cm Aorta AO Root Diam: 3.51 cm Ascending Ao Diam: 3.68 cm Aortic Valve AoV Area (Peak Derik): 2.04 cm2, 2.04 cm2 AoV Area (VTI): 2.30 cm2, 2.30 cm2 Deceleration [place]: Pressure Half-Time: Peak Velocity(Antegrade Flow): 1.78 m/s Peak Gradient(Antegrade Flow): 12.70 mm[Hg] Mean Velocity(Antegrade Flow): 1.29 m/s Mean Gradient(Antegrade Flow): 7.47 mm[Hg] Velocity Time Integral: 32.67 cm Tricuspid Valve Peak Velocity (Regurgitant Flow): 1.73 m/s Peak Velocity: Pulmonic Valve Mean Gradient: 1.02 mm[Hg] Mean Velocity: 0.47 m/s Peak Velocity: 0.69 m/s, 0.82 m/s Peak Gradient: 1.89 mm[Hg], 2.71 mm[Hg] Right Atrium Right Atrium Systolic Pressure: 79.76 ml, 79.76 ml Dictated by: Colten Ryan MD on 11/27/2024 at 15:52 Approved by: Colten Ryan MD on 11/27/2024 at 16:00 Dictated By: Colten Ryan M.D. Signed By: 11/27/24 1602 DD/ 1600 TD/TT: Cream Maker:CBC AUTO DIFF Reviewed date:06/25/2024 07:49:41 PM Interpretation: Performing Lab: Notes/Report: [facility] ,White Blood Count9.44.0-11.0 10 3/uLRed Blood Count5.974.70-6.10 10 6/uL Wgpuwobpcd40.614.0-18.0 g/sYEihbrxwhff76.842.0-54.0 %Mean Corpuscular Lglayn33.4 80.0-94.0 fLMean Corpuscular Nhvflptckj56.825.9-34.0 pgMean Corpuscular HGB Conc 33.329.9-35.2 g/dLRed Cell Distribution Width14.011.0-15.0 %Platelet Koohs957 150-450 10 3/uLMean Platelet Ykubbg36.49.5-13.5 fLNeutrophils Percent Auto73.1 43.0-75.0 %Lymphocytes Percent Auto14.820.5-60.0 %Monocytes Percent Auto9.91.7- 12.0 %Eosinophils Percent Auto1.30.9-7.0 %Basophils Percent Auto0.60.2-2.0 % Immature Granulocytes Pct Auto0.30.0-0.5 %Neutrophils Absolute Auto6.91.4-6.5 10 3/uLLymphocytes Absolute Auto1.41.2-3.8 10 3/uLMonocytes Absolute Auto0.90.3- 0.8 10 3/uLEosinophils Absolute Auto0.10.0-0.7 10 3/uLBasophils Absolute Auto0.1 0.0-0.1 10 3/uLImmature Granulocytes Abs Auto0.030.00-0.03 10 3/uLPerforming Lab:see noteML - [facility] LBProthrombin Time INR Reviewed date:04/05/2024 05:30:55 PM Interpretation: Performing Lab: Notes/Report: [facility] ,Prothrombin Time27.59.0-11.6 secINR2.88 DESIRED INR: 2.0-3.0 CONDITIONS NOT LISTED BELOW 2.5-3.5 FOR PROSTHETIC HEART VALVE REPLACEMENT 2.5-3.5 RECURRENT THROMBOSIS Performing Lab:see noteML - [facility] LBTSH Reviewed date:04/05/2024 05:30:55 PM Interpretation: Performing Lab: Notes/Report: [facility] ,Thyroid Stimulating Hormone1.6340.358-3.740 uIU/mLPerforming Lab:see noteML - [facility] LBFREE T4 Reviewed date:04/05/2024 05:30:55 PM Interpretation: Performing Lab: Notes/Report: [facility] ,Free T40.990.76-1.46 ng/dLPerforming Lab:see noteML - [facility] LB right upper quadrant Reviewed date:02/10/2024 01:23:46 PM Interpretation: Performing Lab: Notes/Report: Source Facility: [place] [address] [place] [address] Ultrasound Report Signed Patient: NEHAL BAIG MR#: [id number] : 1970 Acct:[id number] Age/Sex: 53 / M ADM Date: 02/08/24 Loc: US Attending Dr: MARY GARCIA Ordering Physician: MARY GARCIA Date of Service: 02/08/24 Procedure(s): US right upper quadrant Accession Number(s): [id number] cc: MARY GARCIA ; Chandrakant Parish M.D. [place] [address] Patient Name: NEHAL BAIG MRN: [id number] date: 1970 Sex: M Assigned Patient Location: US Current Patient Location: Accession/Order Number: [id number] Exam Date: 02/08/2024 08:06 Report Date: 02/10/2024 08:27 At the request of: MARY GARCIA Procedure: US right upper quadrant EXAM: [...] M.D. Signed By: 02/10/24828 DD/ 6 TD/TT: Cream Maker:XR chest 2V Reviewed date:11/06/2024 04:02:20 PM Interpretation: Performing Lab: Notes/Report: Source Facility: [address] [address] XRay Report Signed Patient: NEHAL BAIG MR#: [id number] : 1970 Acct:[id number] Age/Sex: 54 / M ADM Date: 11/06/24 Loc: LAB Attending Dr: Chandrakant Parish M.D. Ordering Physician: Chandrakant Parish M.D. Date of Service: 11/06/24 Procedure(s): XR chest 2V Accession Number(s): [id number] cc: Chandrakant Parish M.D. [place] [address] Patient Name: NEHAL BAIG MRN: [id number] date: 1970 Sex: M Assigned Patient Location: LAB Current Patient Location: LAB Accession/Order Number: [id number] Exam Date: 11/06/2024 14:46 Report Date: 11/06/2024 [...] Jr., D.O. 11/06/2024 2:51 PM Dictation Location: [place] [address] Electronically authenticated by: [id number] Y Date: 11/06/2024 14:51 Dictated By: Camilo Rivera M.D. Signed By: 11/06/24 1453 DD/ 50 TD/TT: Cream Maker:Troponin I High Sensitivity Reviewed date:11/06/2024 04:02:20 PM Interpretation: Performing Lab: Notes/Report: [facility] ,Troponin I High Sensitivity5.04.0-76.1 pg/mL CUT-OFF POINTS HAVE BEEN ESTABLISHED BASED ON THE FOURTH UNIVERSAL DEFINITION OF MYOCARDIAL INFARCTION. THE UPPER REFERENCE LIMIT (URL) OF TROPONIN, DEFINED THE 99TH PERCENTILE OF cTnI DISTRIBUTION IN A REFERENCE POPULATION, HAS BEEN CONFIRMED THE DECISION THRESHOLD FOR MD DIAGNOSIS. 99TH PERCENTILE = 76.2 PG/ML NOTE: HIGH-SENSITIVITY TROPONIN ASSAY IS NOT INTENDED TO BE USED IN ISOLATION BUT SHOULD BE INTERPRETED IN CONJUNCTION WITH OTHER DIAGNOSTIC AND CLINICAL INFORMATION. Performing Lab[facility]:11/06/2024 04:02:20 PM Interpretation: Performing Lab: Notes/Report: [facility] ,Thyroid Stimulating Hormone1.8390.358-3.740 uIU/mLPerforming Lab:see noteProMedica Memorial HospitalT4 Reviewed date:11/06/2024 04:02:20 PM Interpretation: Performing Lab: Notes/Report: [facility] ,T4 Thyroxine7.804.50-12.10 ug/dLPerforming Lab:see note - [facility] T[facility] Reviewed date:11/06/2024 04:02:20 PM Interpretation: Performing Lab: Notes/Report: [facility] ,Free T33.732.18-3.98 pg/mLPerforming Lab:see note - [facility] Prothrombin Time INR Reviewed date:06/25/2024 07:49:41 PM Interpretation: Performing Lab: Notes/Report: [facility] ,Prothrombin Time15.99.0-11.6 secINR1.57 DESIRED INR: 2.0-3.0 CONDITIONS NOT LISTED BELOW 2.5-3.5 FOR PROSTHETIC HEART VALVE REPLACEMENT 2.5-3.5 RECURRENT THROMBOSIS Performing Lab:see note - [facility] LB Reason For Referral No Information Medications Medication SIG (Take, Route, Frequency, Duration) Notes Start Date End Date Status Mupirocin 2 % 1 application Externally Twice a day; Duration: 5 days 5ActiveWarfarin Sodium 5 MG1 tablet Orally Once a dayActiveDoxycycline Monohydrate 100 MG1 tablet Orally bid; Duration: 10 days5Active Gabapentin 400 MG1 capsule Orally bidActivePriLOSEC OTC 20 MG2 tablet 30 minutes before morning meal Orally Once a dayActiveAspirin 81 81 MG1 tablet Orally Once a dayActiveBaclofen 20 MG1 tablet Orally bid; Duration: 30 daysActiveVitamin D (Cholecalciferol) 50 MCG (1999)1 capsule Orally Once a dayActiveFarxiga 10 MG TAKE 1 TABLET BY MOUTH EVERY DAY FOR 30 DAYS; Duration: 90ActiveHYDROcodone- Acetaminophen 7.5-325 MG1 tablet as needed Orally TID-QID4Active Cefdinir 300 MG2 capsule Orally once a day; Duration: 10 days5Active Lasix 40 MG1 tablet Orally Once a dayActiveMetoprolol Succinate 25 MG1 capsule Orally Once a dayActive Social History Tobacco Use: Social History Observation Description Date Details (start date - stop date) Never Smoker NA - NA Tobacco Use/Smoking Question Answer Notes Patient is a nonsmoker Alcohol Screen (Audit-C) Question Answer Notes Did you have a drink containing alcohol in the p ast year? No Ojkyte0NwdxmwnsmqkbusDypphahxRHWZD-R (Standard) Question Answer Notes Did you have a drink containing alcohol in the p ast year? No Txvova8MvhcdkqslxpylpTxtopekd Problems Problem Type SNOMED Code ICD Code Onset Dates Problem Status W/U Status Risk Notes Problem Meralgia paresthetica (48318873) Meralgia paresthetica, left lower limb (G57.12) ActiveconfirmedProblemAortic valve disorder (1185176)Nonrheumatic aortic (valve) insufficiency (I35.1)ActiveconfirmedProblemPlantar fascial fibromatosis (44045859)Plantar fascial fibromatosis (M72.2)ActiveconfirmedProblemAchilles bursitis (406001181)Achilles tendinitis, right leg (M76.61)Activeconfirmed ProblemCalcaneal spur of right foot (398699526416290)Calcaneal spur, right foot (M77.31)ActiveconfirmedProblemCalcaneal spur of left foot (981579191404054) Calcaneal spur, left foot (M77.32)ActiveconfirmedProblemAnesthesia of skin (055102868)Anesthesia of skin (R20.0)ActiveconfirmedProblemParesthesia (finding) (86745134)Paresthesia of skin (R20.2)ActiveconfirmedProblemBacteremia (1269603) Bacteremia (R78.81)ActiveconfirmedProblemStrain of left Achilles tendon (37448704619881115)Strain of left Achilles tendon, sequela (S86.012S)Active confirmedProblemLymphedema (54212996)Lymphedema (I89.0)ActiveconfirmedProblem Sleep apnea (94047126)Sleep apnea (G47.30)ActiveconfirmedProblemPericardial effusion (451127822)Pericardial effusion (I31.9)ActiveconfirmedProblemAnkle pain (887609336)Ankle pain (M25.579)ActiveconfirmedProblemInternal hemorrhoid (72626814)Internal hemorrhoid (K64.8)ActiveconfirmedProblemLumbar radiculopathy (237310519)Lumbar radiculopathy (M54.16)ActiveconfirmedProblemFoot pain (09125731)Foot pain (M79.673)ActiveconfirmedProblemCervical disc disease (797186510)Cervical disc disease (M50.90)ActiveconfirmedProblemEjection fraction < 50% (R09.89)ActiveconfirmedProblemPain in limb (66889286)Pain of left lower extremity (M79.605)ActiveconfirmedProblemHepatomegaly (63207592)Hepatomegaly (R16.0)ActiveconfirmedProblemIron deficiency anemia (48134820)Anemia, iron deficiency (D50.9)ActiveconfirmedProblemDisplacement of lumbar intervertebral disc without myelopathy (76098147)Herniated nucleus pulposis of lumbosacral region (M51.27)ActiveconfirmedProblemMeralgia paresthetica (24110400)Meralgia paresthetica (G57.10)ActiveconfirmedProblemMalnutrition of moderate degree (Lynn: 60% to less than 75% of standard weight) (36411882)Moderate malnutrition (E44.0)ActiveconfirmedProblemEssential hypertension (83835909)BP (high blood pressure) (I10)ActiveconfirmedProblemHigh cholesterol (30105773)High cholesterol (E78.00)Activeconfirmed Vital Signs Blood pressure diastolic 60 mm Hg 11/06/2024 [place]v08 in11/06/2024lood pressure mofhriec070 mm Hg11/06/20241648Huiwhv128.6 lbs 11/06/2024BMI49.02 kg/m211/06/2024 Procedures Procedure Date Ordered Date Performed Result Body Sit e Colonoscopy 04/17/2024 undefinedCARDIO Xrcjokcoafmkbf98/08/2025N/A Encounters Encounter Location Date Provider Diagnosis [facility] [address] [place] [address] 04/02/2024 Conor Hoy Hepatomegaly R16.0 [facility] [address] [place] [address] 11/06/2024 Conor Hoy Lymphedema I89.0 [facility] [address] [place] [address] 04/15/2024 Conor Hoy [facility] [place] [address] 09/01/2024Doug HoyLumbar radiculopathy M54.16[facility] [place] [address]/08/2025[facility] [place] [address]/[facility] [place] [address] [facility] [place] [address]/[facility] [place] [address]/oug [facility] [place] [place] [address] [place] [address]/07/2024Conor Parish Assessments Encounter Date Diagnosis (ICD Code) Assessment Notes Treatment Notes Treatment Clinical Notes Section Notes 04/02/2024 Hepatomegaly (ICD-10 - R16.0) 11/06/2024Lymphedema (ICD-10 - I89.0)09/01/2024Lumbar radiculopathy (ICD-10 - M54.16) Plan Of Treatment Pending Test Test Name [...] Coverage End Date [employer] [address] [place] [id number] Fritz Baigelf - patient is the insured Medications Administered Medication Instructions Date of Administration Dosage Notes Ketorolac Tromethamine vs36Tmgpdsjggrzf Xqojscn11 mg60 Medical (General) History Medical History History ICD Code hypertension Surgical History Surgery Date(Month/Year) Colonoscopy- Dr Connolly 04/17/2024 Colonoscopy- Dr Connolly 03/13/24 Epidural injections 10/2023 Pericardiocentesis 09/03/23 Aortic Valve Replacement 06/27/2023 Kidney Stone Removal left Achilles repair, EPF, removal of calcaneal spur and flexor hallucis longus tendon oahjthxb59/11/0749Giznpczqw0881Rhntxj Tunnel release [id number] shoulder replacement07/2021Hospitalization History Reason Date(Month/Year) see above
--- OUTSIDE RECORDS SUMMARY | 2025-02-09 15:45 | XMS_ITS | CCD ---
Author Organization [facility] Care Team Providers Care Finance Controller Name Role Phone Pal LOO - [facility] Primary Care Provide r PAL NATALIA Primary Care Unavailable JUANITA CARMONA Consulting Unavailable JUANITA CARMONA Attending Unavailable JUANITA CARMONA Admitting Unavailable Pal INFECTION CONTROL PREVENTIONIST.[facility] Primary Care Provider [facility] Primary Care Physician UnavailNicolasa Perry Unavailable Unavailable [facility] Primary Care Physician [phone] Pal INFECTION CONTROL PREVENTIONIST.[facility] Primary Care Provider Pal INFECTION CONTROL PREVENTIONIST.[facility] Primary Care Provider Pal INFECTION CONTROL PREVENTIONIST.[facility] Primary Care Provider JAVEIR, DR KINGSLEY Ro Consulting Unavailable YRN, DR ARROYO Attending Unavailable YRN, DR ARROYO Admitting Unavailable TOSHA, DR JAYY Marte Consulting Unavailable YRN, DR ARROYO Consulting Unavailable [facility] Referring Unavailable [facility] Primary Care Unavailable Kelly Yi Unavailable HAIDER Aguillon Primary Care Provider HAIDER Yi Attending Provider [phone] HAIDER Quezada Attending Provider HAIDER Guerrero Primary Care Provider [phone] Siri Quezada Unavailable Vonnie Guerrero Primary Care [...] Attending Unavailable Vonnie Guerrero Attending Unavailable Shehan INFECTION CONTROL PREVENTIONIST.[facility] Primary Care Provider Demetrius Bernal MD Primary Care Provider Ton Connolly MD Attending Provider Demetrius Bernal MD Primary Care Provider [phone] Demetrius Bernal MD Referring Provider Huan Cowan Unavailable Huan Cowan Unavailable Demetrius Bernal Referring Unavailable Asaad, Imad Admitting Unavailable Asaad, Imad Attending Unavailable Demetrius Bernal Primary Care Unavailable Asaad, Imad Admitting Unavailable Asaad, Imad Attending Unavailable Demetrius Bernal Primary Care Unavailable ENTTEE, GUY Referring Unavailable [facility] Unavailable ENTNORMANARI, GUY Attending Unavailable HUAN COWAN Referring Unavailable [facility] Unavailable ENTEZARI, GUY Referring Unavailable [facility] Unavailable Unavailable Primary Care Provider UnavailKEVIN Blankenship Attending Unavailable KEVIN GARSIA Referring Unavailable KEVIN GARSIA Referring Unavailable Gitricia SEXTON, Andgorge Reid Attending Unavailable Jean SEXTON, Andrius Reid Attending Unavailable Giventuraitis , Andrius Franklin Attending Unavailable Gitricia SEXTON, Andrius Franklin Attending Unavailable BROWN, HUAN A Attending Unavailable BROWN, HUAN A Attending Unavailable BROWN, HUAN A Referring Unavailable BROWN, HUAN A Attending Unavailable BROWN, HUAN A Referring Unavailable BROWN, HUAN A Attending Unavailable DEMETRIUS BERNAL Primary Care Unavailable POLY KAUR Attending Unavailable Bledsoe, Joel L Admitting Unavailable Demetrius Bernal MD Primary Care Provider [phone] Venancio Russell MD Attending Provider [phone] [place] WORKFORCE MANAGEMENT COORDINATOR-C, Ninfa M Referring Provider ELTAHAWY, EHAB Referring Unavailable ELTAHAWY, EHAB Attending Unavailable JOSE J GRANDE Attending Unavailable KATSOPHIE, BRAXTON Referring Unavailable HORANI, SHARRON Admitting Unavailable OVITT, NINAF Referring Unavailable OVITT, NINFA Referring Unavailable OVITT, NINFA Referring Unavailable OVITT, NINFA Referring Unavailable OVITT, NINFA Attending Unavailable OVITT, NINFA Attending Unavailable OVITT, NINFA Attending Unavailable OVITT, NINFA Referring Unavailable ESCOBAR STUBBS Attending Unavailable ALSAIF, ALI Attending Unavailable OVITT, NINFA Referring Unavailable ALSAIF, ALI Attending Unavailable NERIS, MICHAEL Referring Unavailable CARMEN, CLAUDIA Referring Unavailable SANAULLAH, MAURI Referring Unavailable SANAULLAH, MAURI Referring Unavailable AGUSTIN, MICHAEL Herbert Referring Unavailable DAYDAYRADHA CHEN Attending Unavailable ELTAHAWY, EHAB Attending Unavailable Allergies Allergy ClassificationReported Allergen(s)Allergy TypeDate of OnsetReaction(s) Facility (9 sources)atorvastatin; Translations: [ATORVASTATIN]Drug Vvayphe17-60-6794[facility] (1 source)atorvastatinDrug Uvaaets62-22-7382Bngop: See [facility] (1 source)Ntvmjiu-TPZ-RtH Reductase InhibitorDrug allergy (disorder)04-17-2024 [facility] Repository (1 source)ALLERGIES NOT ON FILE; Translations: [ALLERGIES NOT ON FILE]Propensity to adverse reactions (disorder)[facility] Repository (2 sources)HMG-CoA reductase inhibitorPropensity to adverse opihkurdm57-46-7172 [facility] (1 source)No Known Medication Allergies; Translations: [No Known Medication Allergies]Propensity to adverse reactions to drug (disorder)[facility] Repository (1 source)gabapentin; Translations: [GABAPENTIN]Drug Efbnqyr52-28-0090BdcgsmaxnrS[facility] (1 source)Hmg-Coa Reductase Inhibitors (Statins); Translations: [UJKSPVU-RMX-UYK REDUCTASE INHIBITORS]Propensity to adverse reactions to drug (disorder) 24-75-3771[facility] ([facility] source)Spironolactone; Translations: [SPIRONOLACTONE]Drug Qauroix51-22-5614 [facility] Repository Medications Current Medications MedicationDrug Class(es)DatesSig (Normalized)Sig (Original)acetaminophen 500 mg oral tablet (14 sources)Start: 73-54-0717mwgy 1 tablet by mouth four times daily as needed Acetaminophen (Tylenol Extra Strength) 500 mg tablet Active 500 MG PO Four times daily as needed November 09, 2024 12:00am Complies with drug therapyStart: 08-02-2020 End: 42-38-8276omys 2 tablets by mouth every eight hoursacetaminophen (TYLENOL) 500 MG tablet Take 2 tablets by mouth every 8 hours for 5 days 30 tablet 0 0 08/02/2020 08/07/2020 ActiveStart: 48-46-7339urtk 1 dose by mouth three times daily1,000 mg, Oral, EVERY 8 HOURS SCHEDULED (3 times per day), First dose on Sat08/02/20 at 0015 Maximumdose of acetaminophen is 4000 mg from all sources in 24 hours.Start: 07-68-8803qbvj 2 tablets by mouth every six hours as needed for painacetaminophen 325 mg Tab 650 mg = 2 tab(s), Oral, q6hr, PRN Pain, Refills(s) 0 Start Date: 03/01/19 Status: Orderedacetaminophen (Tylenol) 325 MG tablet every 4 (four) hours Activetake 2 tablets by mouth every twelve hours Acetaminophen 500 MG 2 tablet Orally bid Activetake 1 tablet by mouth every six hours as neededAcetaminophen 500 MG 1 tablet as needed Orally every 6 hrs Active acetaminophen 325 mg / HYDROcodone bitartrate 7.5 mg oral tablet (12 sources)Opioid AgonistStart: 79-32-5901Tlouvpmwtkd-Acetaminophen 7.5-325 mg tablet Active 1 TAB PO As Directed as needed for pain June 11, 2023 12:00am Complies with drug therapy End: 48-64-8242mvio 1 tablet by mouth every four hours as neededHYDROcodone- acetaminophen ([place]) 7.5-325 MG tablet 1 tablet every 4 (four) hours if needed 07/14/2024 Discontinued (Therapy completed)take 1 tablet by mouth every twelve hours as neededHYDROcodone-Acetaminophen (NORCO) 7.5-325 mg per tablet Take 1 tablet by mouth two times a day as needed. ActiveAir Curve 10VAuto CPAP machine supplies (3 sources)Start: 95-08-0423Nbr Curve 10VAuto CPAP machine supplies Air Curve 10VAuto CPAP machine supplies, See Instructions, 1 EA, 2, Use CPAP machine every night, Supply, 185.5, cm, 01/09/23 16:37:00 EDT, Height/Length Dosing, 174.3, kg, 01/09/23 16:37:00 EDT, Weight Dosing Start Date: 01/09/23 Status: Ordered albuterol 0.83 mg/ml inhalation solution (20 sources)beta2-Adrenergic AgonistStart: 30-84-9604yvkf 2.5 mg by inhalation every six hours for wheezingalbuterol 0.083% Inh Rosaura 3 mL 2.5 mg, 3 mL, Inhalation, q6hr for wheezing Start Date: 08/08/21 Status: OrderedStart: 74-97-5220qyqa 2.5 mg by inhalation every six hours for wheezingalbuterol 0.083% Inh Rosaura 3 mL 2.5 mg, 3 mL, Inhalation, q6hr for wheezing Start Date: 08/08/21 Status: OrderedStart: 21-43-2556vbsg 2 puff(s) by inhalation every four hours as needed for wheezingalbuterol HFA (PROAIR HFA) 90 mcg/actuation inhaler Inhale 2 Puffs as instructed every 4 hours as needed for wheezing/shortness of breath. 18 g 3 03/10/2021 ActiveStart: 04-23-2016 End: 60-39-8566bkmy 2 puff(s) by inhalation every four hours as neededalbuterol HFA (PROAIR HFA) 90 mcg/actuation inhaler Indications: Acute URI , Cough Inhale 2 Puffs as instructed every 4 hours as needed. 1 Inhaler 0 04/23/2016 03/10/2021 DiscontinuedComment on above:Inhale 2 Puffs as instructed every 4 hours as needed for wheezing/shortness of breath.Inhale 2 Puffs as instructed every 4 hours as needed.aspirin 81 mg delayed release oral tablet (17 sources)Platelet Aggregation Inhibitor, Nonsteroidal Anti-inflammatory Drug Start: 37-73-5097ftld 1 tablet by mouth once dailyAspirin 81 mg tablet,delayed release (DR/EC) Active 81 MG PO Daily March 02, 2024 1:00am FreeTextSi tablet Orally Once a day; Note: Source Status: Taking; Provider: Damien Horner ( ) Complies with drug therapyStart: 86-09-5829xphf 1 tablet by mouth once dailyaspirin 81 mg Oral EC Tab 81 mg = 1 tab(s), Oral, Daily, Refills(s) 0, Prophylaxis Start Date: 03/01/19 Status: Orderedbacitracin zinc 0.5 unt/mg topical ointment (1 source)Start: 00-42-6578pjokpbetib ointmentStart: 81-21-6670icyyoghadi ointmentbaclofen 20 mg oral tablet (12 sources)gamma-Aminobutyric Acid-ergic AgonistStart: 21-58-1912lnmozxnc (Lioresal) 20 MG tablet Take 20 mg by mouth in the morning and 20 mg at noon and 20 mg in the evening. 07/11/2023 ActiveStart: 57-60-8995Nuvqqhat 10 mg tablet Active 10 MG PO As Directed June 11, 2023 12:00am Complies with drug therapy bisacodyl 5 mg delayed release oral tablet (1 source)Stimulant LaxativeStart: 49-12-2422dofc 1 tablet by mouth once daily at bedtimeBisacodyl 5 mg tablet,delayed release (DR/EC) Active 5 MG PO Daily at bedtime November 09, 2024 12:00am Complies with drug therapycalcium chloride 0.0014 meq/ml / potassium chloride 0.004 meq/ml / sodium chloride 0.103 meq/ml / sodium lactate 0.028 meq/ml injectable solution (1 source)Start: 31-56-6874wbvodxqv ringers infusion 1,000 mLcephalexin 500 mg oral capsule (1 source)Cephalosporin AntibacterialStart: 08-23-2021 End: 50-49-6054wekt 1 capsule by mouth every eight hoursKeflex 500 mg Cap 500 mg = 1 cap(s), Oral, q8hr, X 3 day(s), # 9 cap(s), Refills(s) 0, Pharmacy: [id number], 185.5, cm, 08/08/21 12:06:00 EDT, Height/Length Dosing, 179.2, kg, 08/08/21 12:06:00 EDT, Weight Dosing Start Date: 08/23/21 Stop Date: 08/26/21 Status: Orderedcholecalciferol 0.05 mg oral tablet (13 sources)Vitamin DStart: 97-93-8513dlib 1 tablet by mouth once daily Cholecalciferol (Vitamin D3) 50 mcg (2,000 unit) tablet Active 50 MCG PO Daily March 02, 2024 1:00am FreeTextSi tablet Orally Once a day; Note: Source Status: Taking; Provider: Damien Horner ( ) Complies with drug therapycholecalciferol (Vitamin D-3) 50 MCG (2000 UT) capsule 1 capsule Active Cholecalciferol, Vitamin D3, 50 mcg (2,000 unit) cap 1 capsule. Activetake 1 tablet by mouth every twenty-four hoursVitamin D3 50 MCG (2000 UT) 1 tablet Orally Once a day Activecolchicine 0.6 mg oral tablet (1 source)Start: 05-57-2592dghg 1 tablet by mouth once dailyColchicine 0.6 mg tablet Active 0.6 MG PO Daily November 09, 2024 12:00am Complies with drug therapydapagliflozin 10 mg oral tablet (9 sources)Sodium-Glucose Cotransporter 2 InhibitorStart: 09-26-2023 End: 30-13-7625vxnj 1 tablet by mouth once dailyDapagliflozin Propanediol (Farxiga) 10 mg tablet Active 10 MG PO Daily November 09, 2024 12:00am Complies with drug therapydocusate sodium 100 mg oral capsule (2 sources)Start: 23-49-7764ggxb 1 capsule by mouth twice daily as needed for constipationColace 100 mg Cap 100 mg = 1 cap(s), Oral, BID, PRN for constipation, # 20 cap(s), Refills(s) 0, Pharmacy: [facility] #37, 185.5, cm, 08/08/21 12:06:00 EDT, Height/Length Dosing, 179.2, kg, 08/08/21 12:06:00 EDT, Weight Dosing Start Date: 08/23/21 Status: Ordered0.3 ml enoxaparin sodium 100 mg/ml prefilled syringe (1 source)Low Molecular Weight HeparinStart: 44-89-9042jukxgk 30 mg by subcutaneous injection twice daily30 mg, Subcutaneous, 2 TIMES DAILY, First dose on Sat08/02/20 at 0015Full Mask Resmed Air touch F20 (3 sources)Start: 79-90-1484Oiii Mask Resmed Air touch F20 Full Mask Resmed Air touch F20, See Instructions, 1 EA, 1, use everynight, Supply Start Date: 01/09/23 Status: Orderedfurosemide 20 mg oral tablet (10 sources)Loop DiureticStart: 49-34-7791srke 1 tablet by mouth once daily Furosemide 20 mg tablet Active 20 MG PO Daily November 09, 2024 12:00am Complies with drug therapyStart: 56-78-1294tqoo 1 tablet by mouth every other day furosemide (Lasix) 40 MG tablet Take 40 mg by mouth every other day 07/25/2023 Activetake 1 tablet by mouth once daily in the morningfurosemide (LASIX) 40 mg tablet Take 40 mg by mouth every morning. Activeibuprofen 600 mg oral tablet (15 sources)Nonsteroidal Anti-inflammatory DrugStart: 28-93-7486ospq 1 tablet by mouth every eight hours as needed for painibuprofen 600 mg Tab 600 mg = 1 tab(s), Oral, q8hr, PRN as needed for pain, with food or milk, # 60tab(s), Refills(s) 0, Pharmacy: [facility] #37, 185.5, cm, 08/08/21 12:06:00 EDT, Height/Length Dosing, 179.2, kg, 08/08/21 12:06:00 EDT, Weight Dosing Start Date: 08/23/21 Status: OrderedStart: 08-02-2020 End: 70-76-0790ighc 1 tablet by mouth four times daily as needed for pain ibuprofen (ADVIL;MOTRIN) 600 MG tablet Take 1 tablet by mouth 4 times daily as needed for Pain 20 tablet 0 08/02/2020 08/07/2020 Active End: 52-46-5463wbzzcgyoi 200 MG tablet Take by mouth 07/14/2024 Discontinued (Therapy completed)take 1 tablet by mouth every twelve hoursIbuprofen 800 MG 1 tablet with food or milk Orally bid ActiveIbuprofen 200 MG 1/2 as needed Orally every 6 hrs Not-Taking/PRNMagnesium (2 sources)take 1 tablet by mouth once dailyMagnesium 500 MG 1 tablet with a meal Orally Once a day Activemagnesium oxide 500 mg oral tablet (2 sources)Start: 40-12-1188kueh 1 tablet by mouth once dailyMagnesium Oxide 500 mg magnesium tablet Active 500 MG PO Daily March 02, 2024 1:00am FreeTextSi tablet with a meal Orally Once a day; Note: Source Status: Taking; Provider: Damien Horner ( ) Complies with drug therapy 24 hr metoprolol succinate 25 mg extended release oral tablet (11 sources)beta-Adrenergic BlockerStart: 28-97-7286yvyp 1 tablet by mouth once dailyMetoprolol Succinate 25 mg tablet extended release 24 hr Active 25 MG PO Daily March 02, 2024 1:00am Complies with drug therapyStart: 07-18-2023 End: 73-25-1099fkrl 1 tablet by mouth every twenty-four hours at bedtime metoprolol succinate XL (Toprol-XL) 25 MG 24 hr tablet Take 25 mg by mouth at bedtime 07/18/2023 ActiveMultiple Vitamin (Multi-Vitamin) tablet (7 sources)take 1 tablet by mouth in the morningMultiple Vitamin (Multi-Vitamin) tablet Take 1 tablet by mouth in the morning. Activeomeprazole 20 mg delayed release oral tablet (20 sources)Proton Pump InhibitorStart: 41-20-1329wbcf 1 tablet by mouth once dailyOmeprazole Magnesium (Prilosec Otc) 20 mg tablet,delayed release (DR/EC) Active 20 MG PO Daily March 02, 2024 1:00am Complies with drug therapyStart: 40-48-4719lmjq 1 capsule by mouth once dailyPrilosec 20 mg Cap - DR 20 mg, Oral, Daily, Refills(s) 0 Start Date: 03/23/17 Status: OrderedStart: 03-23-2017 take 1 capsule by mouth once dailyPrilosec 20 mg Cap - DR 20 mg, Oral, Daily, Refills(s) 0 Start Date: 03/23/17 Status: OrderedStart: 07-14-2042lngyrlksys (PriLOSEC) [address] capsule 07/18/2023 Activetake 1 tablet by mouth once daily PriLOSEC OTC 20 MG 1 tablet 30 minutes before morning meal Orally Once a day Active End: 54-31-4517Zyjppyqiuw Magnesium (PRILOSEC OTC) 20 mg tablet 2 tablet 0 07/25/2021 Discontinued (Discontinued by Patient)Comment on above:Take 1 capsule by mouth once daily.2 tabletOmeprazole Magnesium (Prilosec Otc) 20 mg tablet,delayed release (DR/EC) (1 source)Start: 93-08-3141wypg 1 tablet by mouth once dailyOmeprazole Magnesium (Prilosec Otc) 20 mg tablet,delayed release (DR/EC) Active 20 MG PO Daily Decem 2023 12:00amondansetron (ZOFRAN-ODT) disintegrating tablet 4 mg (1 source)Start: 34-27-4242hlanstjvofb (ZOFRAN-ODT) disintegrating tablet 4 mg oxyCODONE hydrochloride 5 mg oral tablet (2 sources)Opioid AgonistStart: 08-02-2020 End: 42-72-4121erlf 1 tablet by mouth every eight hours as needed for pain oxyCODONE (ROXICODONE) 5 MG immediate release tablet Indications: Mediastinal hematoma, initial encounter Take 1 tablet by mouth every 8 hours as needed for Pain for up to 3 days. 6 tablet 0 08/02/2020 08/05/2020 ActiveStart: 08-01-2020 take 5 mg by mouth every six hours as needed for pain5 mg, Oral, EVERY 6 HOURS PRN, Pain Severe (7-10), Starting 08/01/20 at 2358polyethylene glycol 3350 03922 mg powder for oral solution (1 source)Osmotic LaxativeStart: g, Oral, DAILY PRN, Constipation, Starting 08/01/20 at 2358 First line therapy for constipationmicroencapsulated potassium chloride 20 meq extended release oral tablet (7 sources)Start: 64-59-1776yeoksoknq chloride CR (Klor-Con M20) 20 MEQ ER tablet Take 20 mEq by mouth in the morning. 07/05/2023 Activerosuvastatin calcium 40 mg oral tablet (7 sources)HMG-CoA Reductase InhibitorStart: 57-99-2790mxiu 1 tablet by mouth once dailyrosuvastatin (CRESTOR) 40 mg tablet Take 1 tablet by mouth once daily. 90 tablet 1 08/20/2022 ActiveComment on above:Take 1 tablet by mouth once daily.125 ml sodium chloride 9 mg/ml prefilled syringe (20 sources)Start: 08-10-2021 End: 73-99-3271qbqknq chloride 0.9 % (flush) 10 mL (BD POSIFLUSH)Start: 10-61-4454qfek 1 dose intravenously twice daily5-40 mL, Intravenous, EVERY 12 HOURS SCHEDULED (2 times per day), First dose on Sat08/02/20 at 0900 For Line Patency: Peripheral IV = 5 mL; Midline or Central Line = 10 mL/lumen. Iffollowing IV push medication, administer flush at same [...] mL Midline or Central Line = 20 mL/lumenStart: 76-51-6415gaec 25 mL intravenously every hour as mL, Intravenous, at 100 mL/hr, PRN, If patient receiving piggyback infusions without ordered maintenance IV fluids or with frequent/long duration piggyback infusions, Starting Sat08/01/20 at 2358 Administer at the same rate as the piggyback being infused.Start: 33-99-2445shcb 5-40 mL intravenously once as needed5-40 mL, Intravenous, PRN, Line Care, After every IV line use, Starting Sat08/01/20 at 2358 For LinePatency: Peripheral IV = 5 mL; Midline or [...] mL Midline or Central Line = 20 mL/lumenStress 500 B-Complex - (2 sources)Stress 500 B-Complex - as directed Orally ActiveVitamin B Complex oral capsule (6 sources)Start: 90-92-1917Wdfvuqm B Complex oral capsule 1 cap(s), Oral, Daily, 30 cap(s), Refill(s) 0, Prophylaxis Start Date: 08/08/21 Status: Ordered vitamin b12 1 mg oral capsule (3 sources)Vitamin M10Nmxyx: 72-37-6118vupu 1 capsule by mouth once daily Cyanocobalamin (Vitamin B-12) 1,000 mcg capsule Active 1000 MCG PO Daily November 09, 2024 12:00am Complies with drug therapytake 1 tablet by mouth in the morningcyanocobalamin (Vitamin B-12) 1000 MCG tablet Take 1,000 mcg by mouth in the morning. ActiveVitamin D 1000 intl units (25 mcg) Tab (6 sources)Start: 31-49-5956appi 2 tablets by mouth once dailyVitamin D 1000 intl units (25 mcg) Tab See Instructions, 2 tab(s) Oral Daily, Refills(s) 0, Prophylaxis Start Date: 08/08/21 Status: OrderedStart: 37-54-9452wrto 1 tablet by mouth once dailyVitamin D 1000 intl units (25 mcg) Tab 25 mcg = 1 tab(s), Oral, Daily, Refills(s) 0, Prophylaxis Start Date: 08/08/21 Status: Orderedwarfarin sodium 1 mg oral tablet (12 sources)Vitamin K AntagonistStart: 87-64-0329dygm 5 tablets by mouth once dailyWarfarin (Jantoven) 1 mg tablet Active 5 MG PO Daily November 09, 2024 8:37am Complies with drug therapyStart: 03-02-2024 End: 18-60-3141dhdy 1 tablet by mouth once dailyWarfarin (Jantoven) 1 mg tablet Discontinued 1 MG PO Daily March 02, 2024 1:00am November 09, 2024 8:47am Start: 30-24-4282etatqdod (Coumadin) 5 MG tablet 07/05/2023 ActiveZinc (1 source)take 1 tablet by mouth once dailyZinc 30 MG 1 tablet Orally Once a day Activezinc gluconate 30 mg oral tablet (1 source)take 1 tablet by mouth every twenty-four hoursZinc 30 MG 1 tablet Orally Once a day Active Completed/Discontinued Medications MedicationDrug Class(es)DatesSig (Normalized)Sig (Original)acetaminophen 325 mg / oxyCODONE hydrochloride 5 mg oral tablet (2 sources)Opioid AgonistStart: 95-66-5933Hzjogvtf 325 mg-5 mg Tab See Instructions, as needed for pain, 40 tab(s), Refill(s) 0, 1-2 tab(s) Oral q4hr, [facility] #37, 185.5, cm, 08/08/21 12:06:00 EDT, Height/Length Dosing, 179.2,kg, 08/08/21 12:06:00 EDT, Weight Dosing Start Date: 08/23/21 Status: Orderedamiodarone hydrochloride 200 mg oral tablet (7 sources)Antiarrhythmic End: 74-54-9815xqwtexsxxs (Pacerone) 200 MG tablet 1 (one) time each day at the same time. 07/14/2024 Discontinued(Therapy completed)atorvastatin 80 mg oral tablet (20 sources)HMG-CoA Reductase InhibitorStart: 91-08-0522chyr 1 tablet by mouth once daily at bedtimeatorvastatin (LIPITOR) 80 mg tablet Indications: Mixed hyperlipidemia Take 1 tablet by mouth daily at bedtime. 90 tablet 1 05/21/2022 ActiveStart: 02-15-2022 End: 07-23-2812zgjv 1 tablet by mouth at bedtimeatorvastatin (Lipitor) 40 MG tablet Take 40 mg by mouth at bedtime. 02/15/2022 07/14/2024 Discontinued (Therapy completed)Start: 03-01-2019 End: 36-35-9135hxls 1 tablet by mouth once daily at bedtimeatorvastatin (LIPITOR) 20 mg tablet Indications: Mixed hyperlipidemia Take 1 tablet by mouth daily at bedtime. 90 tablet 1 08/10/2021 02/15/2022 DiscontinuedComment on above:Take 1 tablet by mouth daily at bedtime.Take 20 mg by mouth daily at bedtime.celecoxib 200 mg oral capsule (2 sources)Nonsteroidal Anti-inflammatory DrugStart: 03-01-2021 End: 98-50-4965ewsvrgsxq (CELEBREX) 200 mg capsuleCOMPOUNDED PRESCRIPTION (1 source)Start: 11-08-2016 End: 77-65-0665KNWLKKECHN PRESCRIPTION Indications: JACOBY (obstructive sleep apnea) Please perform autopap titrationstudy. Please fax results to [phone]. DX: JACOBY G47.33 1 Each 0 11/08/2016 09/13/2020 DiscontinuedComment on above:Please perform autopap titration study. Please fax results to [phone]. DX: JACOBY G47.33doxepin hydrochloride 10 mg oral capsule (1 source)Tricyclic AntidepressantStart: 11-06-2019 End: 13-96-0112bmnb 2 capsules by mouth once dailydoxepin capsule 10 mg Take 20 mg by mouth once daily. 0 11/06/2019 04/18/2020 Discontinued (Discontinued by Patient)Comment on above:Take 20 mg by mouth once daily.ezetimibe 10 mg oral tablet (3 sources)Dietary Cholesterol Absorption InhibitorStart: 11-09-2024 End: 84-97-4633cyxq 1 tablet by mouth once dailyEzetimibe 10 mg tablet Discontinued 10 MG PO Daily November 09, 2024 12:00am November 09, 2024 4:21pm Start: 12-89-0760kqve 1 tablet by mouth in the morningezetimibe (Zetia) 10 MG tablet Take 10 mg by mouth in the morning. 02/03/2024 Active2 ml fentaNYL 0.05 mg/ml injection (1 source)Opioid AgonistStart: 08-01-2020 End: 97-54-0881miybsKVO (SUBLIMAZE) injection 50 mcgStart: 08-01-2020 End: 83-08-3739lciraUFZ (SUBLIMAZE) injection 50 ymf344 actuat fluticasone propionate 0.11 mg/actuat metered dose inhaler (20 sources)CorticosteroidStart: 03-10-2021 End: 13-60-0791asls 2 puff(s) by inhalation twice dailyfluticasone (FLOVENT HFA) 110 mcg/actuation inhaler Indications: Mild persistent asthma without comp lication Inhale 2 Puffs as instructed twice daily. via spacer 12 g 3 07/25/2021 05/28/2022 DiscontinuedComment on above:Inhale 2 Puffs as instructed twice daily. via spacergabapentin 400 mg oral capsule (12 sources)Anti-epileptic AgentStart: 03-02-2024 End: 33-93-3747glpz 1 capsule by mouth twice dailyGabapentin 400 mg capsule Discontinued 400 MG PO Twice daily March 02, 2024 1:00am October 4:22pmStart: 52-15-4806jtku 300 mg by mouth three times eyclm716 mg, Oral, 3 TIMES DAILY, First dose on Sat08/02/20 at 0900 End: 65-28-5721cgmncrzdyr (Neurontin) 800 MG tablet Take 600 mg by mouth in the morning and 600 mg in the evening.07/14/2024 Discontinued (Therapy completed) iopamidol (ISOVUE-370) 76 % injection 75 mL (1 source)Start: 08-01-2020 End: 32-69-1104avraugymt (ISOVUE-370) 76 % injection 75 mLlidocaine 0.05 mg/mg medicated patch (4 sources)Antiarrhythmic, Amide Local AnestheticStart: 06-11-2023 End: 61-95-5920Icsjrzlzg 5 % adhesive patch,medicated Discontinued PATCH TOPICAL June 11, 2023 12:00am 2023 10:49amStart: 06-31-3723Dumokhfyx Active PATCH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 HospitalCB WITH AUTO DIFFERENTIALon 83-94-5354Xrstklfmd (Bld) [#/Vol]0.06 10*3/uLNormal0.00-0.20 [facility] LimaComment on above:Performed By: #### [id number] ####[facility] ([facility])[address] [place], [place] [address]Egrpzqaam/100 WBC (Bld)0.6 %Normal0.0-1.0UnPeoples HospitalComment on above: Performed By: #### [id number] ####[facility] ([facility])[address] [place], [place] [address]Ezkddwztebm (Bld) [#/Vol]0.11 10*3/uLNormal0.00-0.50 [facility] LimaComment on above:Performed By: #### [id number] ####[facility] ([facility])[address] [place], [place] [address]Grqasdxelgr/100 WBC (Bld)1.1 %Normal0.0-6.0UnPeoples HospitalComment on above: Performed By: #### [id number] ####[facility] ([facility])[address] [place], [place] [address]Xszwuvtozwo distribution width (RBC) [Ratio]14.2 %Normal 11.5-15.0UnPeoples HospitalComment on above:Performed By: #### [id number] ####[facility] ([facility])[address] [place] [address] ERYTHROCYTE MEAN CORPUSCULAR HEMOGLOBIN CONCENTRATION (G/DL) BY YNAZDHAKN68.3 g/jEOxepbs73.0-35.0UnPeoples HospitalComment on above:Performed By: #### [id number] ####[facility] ([facility])[address] [place], [place] [address]Vduiavfpyk (Bld) [Volume fraction]46.6 %Bgzueh35.0-50.0UnPeoples HospitalComment on above:Performed By: #### [id number] ####[facility] ([facility])[address] [place], [place] [address]Efqpzbzhzz (Bld) [Mass/Vol]15.5 g/dL Nrdyle36.0-17.0UnPeoples HospitalComment on above:Performed By: #### [id number] ####[facility] ([facility])[address] [facility] [place] [address] Immature granulocytes (Bld) [#/Vol]0.05 10*3/uLNormal0.00-0.20UnPeoples HospitalComment on above:Performed By: #### [id number] ####[facility] ([facility])[address] [place], [place] [address]Fijinjja granulocytes/100 WBC (Bld)0.5 %Normal0.0-1.0UnPeoples HospitalComment on above: Performed By: #### [id number] ####[facility] ([facility])[address] [place], [place] [address]Olqxtccsykm (Bld) [#/Vol]1.73 10*3/uLNormal1.20-4.00 [facility] LimaComment on above:Performed By: #### [id number] ####[facility] ([facility])[address] [place], [place] [address]Quowfcneigq/100 WBC (Bld)17.6 %Low20.0-45.0UnPeoples HospitalComment on above: Performed By: #### [id number] ####[facility] ([facility])[address] [place], [place] [address]UEL (RBC) [Entitic mass]27.4 lrRcqrue73.0-33.0UnPeoples HospitalComment on above:Performed By: #### [id number] ####[facility] ([facility])[address] [place], [place] [address]HWL (RBC) [Entitic vol] 82.5 bJEkswnb99.0-98.0UnPeoples HospitalComment on above: Performed By: #### [id number] ####[facility] ([facility])[address] [facility], [place] [address]Xxtvokirw (Bld) [#/Vol]0.85 10*3/uLNormal0.10-1.00UnPeoples HospitalComment on above:Performed By: #### [id number] ####[facility] ([facility])[address] [place] [address]Szdnsqhap/100 WBC (Bld) 8.7 %Normal5.0-12.0S[facility] Hospital LimaComment on above:Performed By: #### [id number] ####[facility] ([facility])[address] [place] [address]Johfuvocgpd (Bld) [#/Vol]7.01 10*3/uLNormal1.60-7.60UnPeoples HospitalComment on above:Performed By: #### [id number] ####[facility] ([facility])[address] [place] [address]Qenqrprxgoi/100 WBC (Bld)71.5 %Normal 40.0-72.0S[facility] Hospital LimaComment on above:Performed By: #### [id number] ####[facility] ([facility])[address] [place] [address]ZIQF (PER 100 WBCS) BY AUTOMATED COUNT0.0 %Vpddnj0UtbuopcisvPeoples Hospital Comment on above:Performed By: #### [id number] ####[facility] ([facility])[address] [place] [address]TJRWRXWRW (10*3/UL) IN BLOOD AUTOMATED FOPWU137 10*3/tCRdwivt260-698FlnbzrudxfPeoples HospitalComment on above: Performed By: #### [id number] ####[facility] ([facility])[address] [place] [address]YWZ (Bld) [#/Vol]5.65 10*6/uLNormal4.20-5.70UnPeoples HospitalComment on above:Performed By: #### [id number] ####[facility] ([facility])[address] [place] [address]IOH (Bld) [#/Vol]9.81 10*3/uLNormal4.00-10.60UnPeoples HospitalComment on above: Performed By: #### [id number] ####[facility] ([facility])[address] [place] [address]AZJGHIQCQDFPE METABOLIC PANELon 46-74-6157Tqtrvzr [Mass/Vol] 4.4 g/dLNormal3.5-5.7UnPeoples HospitalComment on above: Performed By: #### [id number] #### [facility] ([facility]) [address] [place] [address]SAJ [Catalytic activity/Vol]59 U/ZLipuut98-543EwudjpagriPeoples HospitalComment on above:Performed By: #### [id number] #### [facility] ([facility]) [address] [place] [address]XXV [Catalytic activity/Vol]12 U/LNormal7-52UnPeoples HospitalComment on above:Performed By: #### [id number] #### [facility] ([facility]) [address] [address]Ssksc gap [Moles/Vol]9 mmol/LNormal7-20UnPeoples HospitalComment on above:Performed By: #### [id number] #### [facility] ([facility]) [address] [place] [address]EKO [Catalytic activity/Vol]12 U/IFnt68-09ToiaclqhqsPeoples HospitalComment on above:Performed By: #### [id number] #### [facility] ([facility]) [address] [address]Gbbzdthyq [Mass/Vol]0.6 mg/dLNormal0.3-1.0UnPeoples HospitalComment on above:Performed By: #### [id number] #### [facility] ([facility]) [address] [address]Stadyib [Mass/Vol]8.8 mg/dLNormal8.6-10.3UnPeoples HospitalComment on above:Performed By: #### [id number] #### [facility] ([facility]) [address] [place] [address]Eyfycwlt [Moles/Vol]102 mmol/EOdpevv56-662KdaveqsknbPeoples HospitalComment on above:Performed By: #### [id number] #### [facility] ([facility]) [address] [place] [address]HS8 [Moles/Vol]27 mmol/VBvmkeu79-67KbwfpxfwrbPeoples HospitalComment on above:Performed By: #### [id number] #### [facility] ([facility]) [address] [place] [address]Kcesubprqk [Mass/Vol]0.83 mg/dLNormal0.70-1.30UnPeoples HospitalComment on above:Performed By: #### [id number] #### [facility] ([facility]) [address] [place] [address]SGBOJJXHDP FILTRATION RATE ML/MIN/1.73 SQ M.RDAMZFVVN394.0 mL/min/1.73m*2Normal>60.0UnPeoples HospitalComment on above: Result Comment: The [facility]???s estimated glomerular filtration rate (eGFR) will no [...] potential consequences that do not disproportionately affect anyone group of individuals.Performed By: #### [id number] #### [facility] ([facility]) [address] [place] [address]Pgylxby [Mass/Vol]103 mg/oOQozy98-279XhqxzryopnPeoples HospitalComment on above:Performed By: #### [id number] #### [facility] ([facility]) [address] [place] [address]Oookcxbgb [Moles/Vol]4.3 mmol/LNormal3.5-5.1UnPeoples HospitalComment on above:Performed By: #### [id number] #### [facility] ([facility]) [address] [place] [place], [place] [address]Iljerzq [Mass/Vol]6.8 g/dLNormal6.0-8.3UnPeoples HospitalComment on above:Performed By: #### [id number] #### [facility] ([facility]) [address] [place] [place], [place] [address]Tkzzvq [Moles/Vol]134 mmol/BYsv054-063OkvahtwgelPeoples HospitalComment on above:Performed By: #### [id number] #### [facility] ([facility]) [address] [facility] [place], [place] [address]Bgij nitrogen [Mass/Vol]23 mg/dLNormal7-25UnPeoples HospitalComment on above:Performed By: #### [id number] #### [facility] ([facility]) [address] [place], [place] [address]EVCI NITROGEN/CREATININE (MASS RATIO) IN SER/PLAS27.7Normal [facility] Hospital LimaComment on above:Performed By: #### [id number] #### [facility] ([facility]) [address] [place], [place] [address]DNMU SENSITIVITY TROPONIN Ion 39-99-0313SA TROPONIN I (NG/L)4 ng/LNormal<20UnPeoples HospitalComment on above:Performed By: #### [id number] #### [facility] ([facility]) [address] [place], [place] [address]IC TROPONIN I (NG/L)3 ng/LNormal<20UnPeoples HospitalComment on above:Performed By: #### [id number] #### [facility] ([facility]) [address] [place], [place] [address]EU TROPONIN I (NG/L)<2Normal<20UnPeoples HospitalComment on above:Performed By: #### [id number] #### [facility] ([facility]) [address] [place], [place] [address]OZBCU PANELon 05-34-8675TIEK/HDL5.9 mg/dLNormalUniWVUMedicine Harrison Community HospitalComment on above:Performed By: #### [id number] #### [facility] ([facility]) [address] [place] [address]Hrqfyyfbsga [Mass/Vol]236 mg/pWQzcn017-354QzenszdoecPeoples HospitalComment on above:Performed By: #### [id number] #### [facility] ([facility]) [address] [place] [address]Tbkcnsbag [Mass/Vol]147 mg/dLNormal<150UnPeoples HospitalComment on above:Result Comment: TRIGLYCERIDE REFERENCE RANGE: 20 YEARS AND OLDER CARDIOVASCULAR RISK LESS THAN 150 mg/dL LOW RISK 150 TO 199 mg/dL BORDERLINE RISK 200 mg/dL AND GREATER HIGH RISKPerformed By: #### [id number] #### [facility] ([facility]) [address] [place] [address]Esuxctcik [Mass/Vol]167 mg/dLHigh0-160UnPeoples HospitalComment on above:Performed By: #### [id number] #### [facility] ([facility]) [address] [place] [address]Znahnfjkk [Mass/Vol]40 mg/aRLhxmpu14-04ZsxqxibwsqPeoples HospitalComment on above:Performed By: #### [id number] #### [facility] ([facility]) [address] [facility] [place], [place] [address]LUO HDL CHOL. (LDL+VLDL)196NormalUniWVUMedicine Harrison Community HospitalComment on above:Performed By: #### [id number] #### [facility] ([facility]) [address] [facility] [place], [place] [address]CTJWO VLDL-C29 mg/dLNormal0-40UnPeoples HospitalComment on above:Performed By: #### [id number] #### [facility] ([facility]) [address] [facility] [facility] [place], [place] [address]FJBAEQRFig 37-99-1656KDNKMPWYCujovelmn instructions explained. Patient left ambulatory with spouseNormalUniversity of St. [facility] PROTIME-INRon 85-29-5236ZTQ IN PPP BY COAGULATION ASSAY1.88Urhu2.90-1.10 [facility] Hospital LimaComment on above:Result Comment: ACC RECOMMENDED INR FOR WARFARIN THERAPY CONDITION INR PROPHYLAXIS OF VENOUS THROMBOSIS 2-3 (HIGH-RISK SURGERY) TREATMENT OF VENOUS THROMBOSIS 2-3 TREATMENT OF PULMONARY EMBOLISM 2-3 PREVENTION OF SYSTEMIC EMBOLISM: 2-3 ACUTE MYOCARDIAL INFARCTION TISSUE HEART VALVES VALVULAR HEART DISEASE ATRIAL FIBRILLATION RECURRENT SYSTEMIC EMBOLISM MECHANICAL HEART VALVE 2.5-3.5 FROM: ORAL ANTICOAGULANTS. MECHANISM OF ACTION, CLINICAL EFFECTIVENESS, AND OPTIMAL THERAPEUTIC RANGE. CHEST 1995;108:231S-246S.Performed By: #### [id number] #### [facility] (BEAKER) [address] [place], [place] [address]WUCPPQNIUNP TIME (PT) IN PPP BY COAGULATION ASSAY21.7 Seconds High12.3-14.8S[facility] Hospital LimaComment on above:Performed By: #### [id number] #### [facility] (AKER) [address] [place], [place] [address]35xf 80-60-267571Agk patient is Moderately Stable - Low risk of patient condition declining or worsening The patient's goals for the shift include rest The clinical goals for the shift include stable vitalsNormalUniversity [facility] 88-63-7057AGBKNNCAA PARTIAL THROMBOPLASTIN TIME IN PPP BY COAGULATION ASSAY34.9 DtglyekVvsotr36.0-35.0[facility] Comment on above:Order Comment: Baseline aPTT before initiating heparin infusion.Result Comment: Clinical significance of the APTT is questionable in the presence of heparin.Performed By: #### [id number] #### [facility] ([facility]) [address] [facility] [place], [place] [address]M-JHKRQQSJ PROTEINon 06-25-2024 REACTIVE PROTEIN (MG/L) IN SER/PLAS<5.4Normal<=5.0UnPeoples HospitalComment on above: Result Comment: Testing performed using a new methodology, turbidimetry. Normal ranges have been updated. Old normal range was <8 mg/L.Performed By: #### [id number] #### [facility] ([facility]) [address] [place], [place] [address]JVnn 06-48-4701HRPOYAXB KINASE (U/L) IN SER/PLAS57.0 U/LNormal 30.0-223.0UnPeoples HospitalComment on above:Performed By: #### [id number] #### [facility] ([facility]) [address] [place], [place] [address]PHAEDNJtg 91-16-2167HPENWSF Attestation signed by Claudia Pinon MD at 06/25/2024 9:27 PM By using [...] an additional personal documentation from me. Cardiology Consult Note Reason for Consult: chest pain abnormal ekg HPI: Nehal Baig is a 53 y.o. male with past history remarkable for primary hypertension, mixed hyperlipidemia, aortic insufficiency s/p mechanical AVR On-X on 06/26/2023, chronic heart failure with preserved ejection fraction, history of pericardial effusion s/p pericardiocentesis who presented to [facility] ED with chest pain for the last [...] (40 mg) by mo (more content not included)...NormalUnPeoples HospitalHIGH SENSITIVITY TROPONIN I on 83-00-1143JE TROPONIN I (NG/L)2 ng/LNormal<20UnPeoples HospitalComment on above:Performed By: #### [id number] #### [facility] ([facility]) [address] [place], [place] [address]QM TROPONIN I (NG/L)2 ng/LNormal<20UnPeoples HospitalComment on above:Performed By: #### [id number] ####[facility] ([facility])[address] [place], [place] [address]XU TROPONIN I (NG/L)<2Normal<20 [facility] LimaComment on above:Performed By: #### [id number] #### [facility] ([facility]) [address] [place], [place] [address]EC TROPONIN I (NG/L)3 ng/LNormal<20UnPeoples HospitalComment on above:Performed By: #### [id number] #### [facility] ([facility]) [address] [place], [place] [address]HYHOWTGP COUNTon 05-04-1862XAUSBNMNV (10*3/UL) IN BLOOD AUTOMATED DIRYK312 10*3/yLAabmmj044-085ZyilmcrfezPeoples Hospital Comment on above:Performed By: #### [id number] #### [facility] ([facility]) [address] [place], [place] [address]MUQUZOQ-WJEgg 99-61-5235MDG IN PPP BY COAGULATION ASSAY1.70High 0.90-1.10UnPeoples HospitalComment on above:Result Comment: ACCCP RECOMMENDED INR FOR WARFARIN THERAPY CONDITION INR PROPHYLAXIS OF VENOUS THROMBOSIS 2-3 (HIGH-RISK SURGERY) TREATMENT OF VENOUS THROMBOSIS 2-3 TREATMENT OF PULMONARY EMBOLISM 2-3 PREVENTION OF SYSTEMIC EMBOLISM: 2-3 ACUTE MYOCARDIAL INFARCTION TISSUE HEART VALVES VALVULAR HEART DISEASE ATRIAL FIBRILLATION RECURRENT SYSTEMIC EMBOLISM MECHANICAL HEART VALVE 2.5-3.5 FROM: ORAL ANTICOAGULANTS. MECHANISM OF ACTION, CLINICAL EFFECTIVENESS, AND OPTIMAL THERAPEUTIC RANGE. CHEST 1995;108:231S-246S.Performed By: #### [id number] #### [facility] ([facility]) [address] [place], [place] [address]AAJUATARZKS TIME (PT) IN PPP BY COAGULATION ASSAY19.7 Seconds High12.3-14.8UnPeoples HospitalComment on above:Performed By: #### [id number] #### [facility] ([facility]) [address] [place], [place] [address]FVRCMMEPQJJJA RATEon 83-72-7180HHSPJRUYWQINE RATE, ERYTHROCYTE5 mm/hrNormal<20UnPeoples HospitalComment on above:Performed By: #### [id number] #### [facility] ([facility]) [address] [place], [place] [address]LL SHOULDER LEFT WO IV CONTRASTon 17-08-9947CW SHOULDER LEFT WO IV CONTRASTInterpreted By: Estiven Garcia, STUDY: CT SHOULDER LEFT WO IV CONTRAST; ; 05/27/2024 3:18 pm INDICATION: Signs/Symptoms:painful left shoulder replacement. ,M25.512 Pain in left shoulder,Z96.612 Presence of left artificial shoulder joint COMPARISON: Plain film radiographs left shoulder performed on May 12, 2024 ACCESSION NUMBER(S): [id number] ORDERING CLINICIAN: KEVIN GARSIA TECHNIQUE: Multiple thin-section [...] Estiven Garcia 05/27/2024 5:04 PM Dictation workstation: [id number]n North Health CenterComment on above:Order Comment: Metal subtractionCT Shoulder - left WO contraston 93-92-2676Brusqlxhjedv appearance left total shoulder arthroplasty. 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 MACRO: None Signed by: Estiven Garcia 05/27/2024 5:04 PM Dictation workstation: [id number] MMODALInterpreted By: Estiven Garcia, STUDY: CT SHOULDER LEFT WO IV CONTRAST; ; 05/27/2024 3:18 pm INDICATION: Signs/Symptoms:painful left shoulder replacement. ,M25.512 Pain in left shoulder,Z96.612 Presence of left artificial shoulder joint COMPARISON: Plain film radiographs left shoulder performed on May 12, 2024 ACCESSION NUMBER(S): [id number] ORDERING CLINICIAN: KEVIN GARSIA TECHNIQUE: Multiple thin-section [...] demonstrates no findings highly suggestive of tear. MMEstiven Faustin MD - 05/27/2024 Interpreted By: Estiven Garcia, STUDY: CT SHOULDER LEFT WO IV CONTRAST; ; 05/27/2024 3:18 pm INDICATION: Signs/Symptoms:painful left shoulder replacement. ,M25.512 Pain in left shoulder,Z96.612 Presence of left artificial shoulder joint COMPARISON: Plain film radiographs left shoulder performed on May 12, 2024 ACCESSION NUMBER(S): [id number] ORDERING CLINICIAN: KEVIN GARSIA TECHNIQUE: Multiple thin-section [...] Estiven Garcia 05/27/2024 5:04 PM Dictation workstation: [id number] [facility] Work Phone: Radiology Study observation (narrative)[facility] Work Phone: CT Shoulder - left WO contrastOrdered By: Estiven Garcia on 86-95-5529AqmjhyoelhLake County Memorial Hospital [facility] Work Phone: XR SHOULDER LEFT 2+ VIEWSon 17-47-7810UJ SHOULDER LEFT 2+ VIEWSInterpreted By: Estiven Garcia, STUDY: XR SHOULDER LEFT 2+ VIEWS INDICATION: Signs/Symptoms:PAIN. COMPARISON: May 12, 2024 ACCESSION NUMBER(S): [id number] ORDERING CLINICIAN: KEVIN GARSIA FINDINGS: Left total shoulder arthroplasty without fracture, malalignment, or periprosthetic lucency. IMPRESSION: Satisfactory appearance left shoulder arthroplasty. Signed by: Estiven Garcia 05/13/2024 6:10 PM Dictation workstation: [id number] Memorial HospitalOffice Visiton 09-55-6690Eaotkr-up [id number] Nehal Baig 1970 M Date Provider Department Center 04/27/2024 271-ZIAN CARTER [facility] Family History Problem Relation Age of Onset Lung cancer Mother Epididymitis Father Family Status - Relation Status Age at Mother Father Level of Service:14247 [place] OFFICE/OUTPATIENT ESTABLISHED LOW [facility]DM 20 [facility]Or[facility] Onlyon 46-73-1252Vxduoe [id number] Nehal Baig 1970 M Date Provider Department Center 04/27/2024 LEAH RUTHERFORD CARD [facility] Family History Problem Relation Age of Onset Lung cancer Mother Epididymitis Father Family Status - Relation Status Age at Mother FatherNoalUniWVUMedicine Harrison Community HospitalBacteria Fld Culton 04-20-2024 Bacteria identified Cx Nom (Body fld)CULTURE, BODY FLD: No growth GRAM STAIN: No organisms seen No Polymorphonuclear Leukocytes Gram stain from primary specimenNormalSelect Medical Cleveland Clinic Rehabilitation Hospital, AvonComment on above:Performed By: #### 611-4 #### [facility] CLIA [id number] [address] [place] [address] [place] [facility] Auto Differential panel (Bld)on 57-98-9920Kcvuynpcc (Bld) [#/Vol]0.06 10*3/uLNIOhio State Harding Hospital Basophils/100 WBC (Bld)0.6 %[facility] CenterDifferential cell count method Nom (Bld)AutoCleveland ClinicEosinophils (Bld) [#/Vol]0.21 10*3/uLNINFTrinity Health System Twin City Medical CenterEosinophils/100 WBC (Bld)2.1 %[facility] CenterErythrocyte distribution width (RBC) [Ratio]12.7 %11.5 - 15.0 %[facility] Medical CenterHematocrit (Bld) [Volume fraction]47.8 %39.0 - 51.0 %[facility] Medical CenterHemoglobin (Bld) [Mass/Vol]15.5 g/dL 13.0 - 17.0 g/dLTrinity Health System Twin City Medical CenterImmature granulocytes (Bld) [#/Vol]0.06 10*3/uL NINFCleveland ClinicImmature granulocytes/100 WBC (Bld)0.6 %[facility] Lymphocytes (Bld) [#/Vol]1.60 10*3/[facility] SystemLymphocytes/100 WBC (Bld) 16.0 %[facility] Medical CenterH (RBC) [Entitic mass]28.2 pg26.0 - 34.[address] Anne HospitalHC (RBC) [Mass/Vol]32.4 g/dL30.5 - 36.0 g/dLTrinity Health System Twin City Medical CenterV (RBC) [Entitic vol]87.1 fL80.0 - 100.0 fLCMarietta Memorial HospitalMonocytes (Bld) [#/Vol]0.62 10*3/uLNINFTrinity Health System Twin City Medical CenterMonocytes/100 WBC (Bld)6.2 %[facility] Neutrophils (Bld) [#/Vol]7.44 10*3/[facility] SystemNeutrophils/100 WBC (Bld) 74.5 %[facility] CenterNucleated RBC (Bld) [#/Vol]NINFCMarietta Memorial HospitalNucleated RBC/100 WBC (Bld) [Ratio]0.0 %/100 WBCTrinity Health System Twin City Medical CenterPlatelet mean volume (Bld) [Entitic vol]10.8 fL9.0 - 12.7 fLCMarietta Memorial HospitalPlatelets (Bld) [#/Vol]205 10*3/uLTrinity Health System Twin City Medical CenterRBC (Bld) [#/Vol]5.49 10*6/uL4.20 - 6.00 m/[facility] Health SystemWBC (Bld) [#/Vol]9.99 10*3/uLOhioHealth Dublin Methodist Hospital ClinicBasophils (Bld) [#/Vol]0.06 10*3/uLNormal<0.11COhioHealth Mansfield Hospital on above: Order Comment: Specimen Type: BLOOD SPECIMEN Ordering Facility: [facility] Address: [address] [place], [place] [address]Performed By: #### 4537-7, 07657-5 #### [facility] CLIA [id number] [address] [place] [address] [place] AMERICABasophils/100 WBC (Bld)0.6 % NormalHarrison Community Hospital on above:Order Comment: Specimen Type: BLOOD SPECIMEN Ordering Facility: [facility] Address: [address] [place], [place] [address]Performed By: #### 4537-7, 72003-6 #### [facility] CLIA [id number] [address] [place] [address] [place] AMERICADifferential cell count method Nom (Bld)AutoNormalCOhioHealth Mansfield Hospital on above:Order Comment: Specimen Type: BLOOD SPECIMEN Ordering Facility: [facility] Address: [address] [place], [place] [address]Performed By: #### 4537-7, 99280-2 #### [facility] CLIA [id number] [address] [place] [address] [place] AMERICAEosinophils (Bld) [#/Vol] 0.21 10*3/uLNormal<0.46[facility] on above:Order Comment: Specimen Type: BLOOD SPECIMEN Ordering Facility: [facility] Address: [address] [place], [place] [address]Performed By: #### 4537-7, 13306-2 #### [facility] CLIA [id number] [address] [place] [address] [place] AMERICAEosinophils/100 WBC (Bld)2.1 %NormalHarrison Community Hospital on above:Order Comment: Specimen Type: BLOOD SPECIMEN Ordering Facility: [facility] Address: [address] [place], [place] [address]Performed By: #### 4537-7, 43594-2 #### [facility] CLIA [id number] [address] [place] [address] [place] AMERICAErythrocyte distribution width (RBC) [Ratio]12.7 %Ukgjjl50.5-15.0[facility] on above:Order Comment: Specimen Type: BLOOD SPECIMEN Ordering Facility: [facility] Address: [address] [place], [place] [address]Performed By: #### 4537-7, 07512-3 #### [facility] CLIA [id number] [address] [place] [address] [place] AMERICAHematocrit (Bld) [Volume fraction]47.8 %Jnussj40.0-51.0[facility] on above:Order Comment: Specimen Type: BLOOD SPECIMEN Ordering Facility: [facility] Address: [address] [place], [place] [address]Performed By: #### 4537-7, 60295-2 #### [facility] CLIA [id number] [address] [place] [address] [place] AMERICAHemoglobin (Bld) [Mass/Vol] 15.5 g/fDVflloo32.0-17.0[facility] on above:Order Comment: Specimen Type: BLOOD SPECIMEN Ordering Facility: [facility] Address: [address] [place], [place] [address]Performed By: #### 4537-7, 25805-1 #### [facility] CLIA [id number] [address] [place] [address] [place] AMERICAImmature granulocytes (Bld) [#/Vol]0.06 10*3/uLNormal<0.10[facility] on above:Order Comment: Specimen Type: BLOOD SPECIMEN Ordering Facility: [facility] Address: [address] [place], [place] [address]Performed By: #### 4537-7, 51040-1 #### [facility] CLIA [id number] [address] [place] [address] [place] AMERICAImmature granulocytes/100 WBC (Bld)0.6 %NormalHarrison Community Hospital on above:Order Comment: Specimen Type: BLOOD SPECIMEN Ordering Facility: [facility] Address: [address] [place], [place] [address]Performed By: #### 4537-7, 08359-2 #### [facility] CLIA [id number] [address] [place] [address] [place] OF AMERICALymphocytes (Bld) [#/Vol] 1.60 10*3/uLNormal1.00-4.00[facility] on above:Order Comment: Specimen Type: BLOOD SPECIMEN Ordering Facility: [facility] Address: [address] [place], [place] [address]Performed By: #### 4537-7, 25365-6 #### [facility] CLIA [id number] [address] [place] [address] [place] AMERICALymphocytes/100 WBC (Bld) 16.0 %NormalHarrison Community Hospital on above:Order Comment: Specimen Type: BLOOD SPECIMEN Ordering Facility: [facility] Address: [address] [place], [place] [address]Performed By: #### 4537-7, 86387-3 #### [facility] CLIA [id number] [address] [place] [address] STATES OF AMERICAMCH (RBC) [Entitic mass]28.2 gxUsvysm54.0-34.0[facility] on above:Order Comment: Specimen Type: BLOOD SPECIMEN Ordering Facility: [facility] Address: [address] [place], [place] [address]Performed By: #### 4537-7, 67549-8 #### [facility] CLIA [id number] [address] [place] [address] [place] MCLAREN NORTHERN MICHIGANHC (RBC) [Mass/Vol]32.4 g/qWMcdhwi63.5-36.0[facility] on above:Order Comment: Specimen Type: BLOOD SPECIMEN Ordering Facility: [facility] Address: [address] [place], [place] [address]Performed By: #### 4537-7, 01722-7 #### [facility] CLIA [id number] [address] [place] [address] [place] AMERICAMCV (RBC) [Entitic vol]87.1 tPJtllty76.0-100.0[facility] on above:Order Comment: Specimen Type: BLOOD SPECIMEN Ordering Facility: [facility] Address: [address] [place], [place] [address]Performed By: #### 4537-7, 76318-9 #### [facility] CLIA [id number] [address] [place] [address] [place] AMERICAMonocytes (Bld) [#/Vol]0.62 10*3/uLNormal<0.87[facility] on above:Order Comment: Specimen Type: BLOOD SPECIMEN Ordering Facility: [facility] Address: [address] [place], [place] [address]Performed By: #### 4537-7, 69229-0 #### [facility] CLIA [id number] [address] [place] [address] [place] AMERICAMonocytes/100 WBC (Bld)6.2 % NormalHarrison Community Hospital on above:Order Comment: Specimen Type: BLOOD SPECIMEN Ordering Facility: [facility] Address: [address] [place], [place] [address]Performed By: #### 4537-7, 09178-4 #### [facility] CLIA [id number] [address] [place] [address] [place] AMERICANeutrophils (Bld) [#/Vol] 7.44 10*3/uLNormal1.45-7.50[facility] on above:Order Comment: Specimen Type: BLOOD SPECIMEN Ordering Facility: [facility] Address: [address] [place], [place] [address]Performed By: #### 4537-7, 04874-7 #### [facility] CLIA [id number] [address] [place] [address] [place] AMERICANeutrophils/100 WBC (Bld) 74.5 %NormalHarrison Community Hospital on above:Order Comment: Specimen Type: BLOOD SPECIMEN Ordering Facility: [facility] Address: [address] [place], [place] [address]Performed By: #### 4537-7, 58617-2 #### [facility] CLIA [id number] [address] [place] [address] [place] AMERICANucleated RBC (Bld) [#/Vol] 10*3/uLNormal<0.01[facility] on above:Order Comment: Specimen Type: BLOOD SPECIMEN Ordering Facility: [facility] Address: [address] [place], [place] [address]Performed By: #### 4537-7, 80247-4 #### [facility] CLIA [id number] [address] [place] [address] [place] AMERICANucleated RBC/100 WBC (Bld) [Ratio]0.0 /100 WBCNormalCOhioHealth Mansfield Hospital on above:Order Comment: Specimen Type: BLOOD SPECIMEN Ordering Facility: [facility] Address: [address] [place], [place] [address]Performed By: #### 4537-7, 74736-4 #### [facility] CLIA [id number] [address] [place] [address] [place] AMERICAPlatelet mean volume (Bld) [Entitic vol]10.8 fLNormal9.0-12.7COhioHealth Mansfield Hospital on above: Order Comment: Specimen Type: BLOOD SPECIMEN Ordering Facility: [facility] Address: [address] [place], [place] [address]Performed By: #### 4537-7, 54652-5 #### [facility] CLIA [id number] [address] [place] [address] [place] AMERICAPlatelets (Bld) [#/Vol]205 10*3/eFWgqstx586-873UtgggdwsvHarrison Community Hospital on above:Order Comment: Specimen Type: BLOOD SPECIMEN Ordering Facility: [facility] Address: [address] [place], [place] [address]Performed By: #### 4537-7, 34771-5 #### [facility] CLIA [id number] [address] [place], [place] [address]RBC (Bld) [#/Vol]5.49 10*6/uLNormal4.20-6.00[facility] on above:Order Comment: Specimen Type: BLOOD SPECIMEN Ordering Facility: [facility] Address: [address] [place], [place] [address]Performed By: #### 4537-7, 59373-3 #### [facility] CLIA [id number] [address] [place], [place] [address]W (Bld) [#/Vol]9.99 10*3/uLNormal3.70-11.00[facility] on above:Order Comment: Specimen Type: BLOOD SPECIMEN Ordering Facility: [facility] Address: [address] [place], [place] [address]Performed By: #### 4537-7, 65563-3 #### [facility] CLIA [id number] [address] [place], [place] [address]CNOVon 00-02-8384BOIKKckqky Visit (ORTHMN) NEHAL BAIG ([id number]) 1970 M Date Time Provider Department 04/20/24 2:30 PM GUY SALGADO During your visit today, we recorded the following information about you: Guy Salgado MD 04/20/2024 4:00 PM Signed Guy Almonte. Label Remover of Orthopaedic Surgery at [place] [address] Office: [phone] Consult requested for an opinion regarding the evaluation and treatment of the above patient. My final impression and recommendations will be communicated back to the requesting physician by way of the shared medical record or letter via US mail. Patient info: Nehal Baig ([id number]) Service date: 04/20/2024 Referred by: Huan Cowan DO [address] [place] [address] PCP: APRN. PalCLUTCH REBUILDER Chief Complaint: Left shoulder pain. 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 to [...] triceps tendon Left S (more content not included)...NormalGrand Lake Joint Township District [facility] Hospital SerPl-mCncon 41-64-3292WMU [Mass/Vol]0.4 mg/dLNormal<0.9COhioHealth Mansfield Hospital on above:Order Comment: Specimen Type: BLOOD SPECIMEN Ordering Facility: [facility] Address: [address] [place], [place] [address]Performed By: #### 1988-5 #### [facility] CLIA [id number] [address] [place] [address] [place] AMERICAD dimer FEU PPP-mCncon 64-45-1533Yjwemt D-dimer FEU (PPP) [Mass/Vol]360 ng/mL FEUNormal<500[facility] on above:Order Comment: Specimen Type: BLOOD SPECIMEN Ordering Facility: [facility] Address: [address] [place], [place] [address]Performed By: #### 65276-5 #### [facility] [place] [id number] [address] [place] [address] [place] AMERICAD-DIMERon 80-97-9809Rflojw D-dimer FEU (PPP) [Mass/Vol]360NINFTrinity Health System Twin City Medical CenterESR Westergren method (Bld) [Velocity]on 08-52-5548KTK (Bld) [Velocity]2 mm/hNormal0-15[facility] on above:Order Comment: Specimen Type: BLOOD SPECIMEN Ordering Facility: [facility] Address: [address] [place], [place] [address]Performed By: #### 4537-7, 68339-2 #### [facility] [place] [id number] [address] [place] [address] [place] AMERICAFibrin D-dimer FEU (PPP) [Mass/Vol]on 04-20-2024D Dimer Age-related Dknswz896yk/mL FEAdena Regional Medical Center500 ng/mL FEU is the D Dimer cutoff [...] 311:1117 and Neri Demarco N, et al. Leah Int Med 2016 165:253.Cleveland Clinic Avon HospitalD DIMER AGE-RELATED VGDCNV085 ng/mL FEUNormalHarrison Community Hospital on above:Order Comment: Specimen Type: BLOOD SPECIMEN Ordering Facility: [facility] Address: [address] [place], [place] [address]Performed By: #### 19176-9 #### [facility] CLIA [id number] [address] [place] [address] STATES OF HAIMPXWEcN0v (Bld)on 04-20-2024 Average glucose Estimated from glycated hemoglobin (Bld) [Mass/Vol]100 mg/dL NormalHarrison Community Hospital on above:Order Comment: Specimen Type: BLOOD SPECIMEN Ordering Facility: [facility] Address: [address] [place], [place] [address]Result Comment: eAG: (Estimated average glucose) is a calculated value from HgbA1c and is sales representative printing supplies of the average blood glucose level in the last 2-3 month period.Performed By: #### 86130-6 #### [facility] CLIA [id number] [address] [place] [address] [place] ALJZFSIRuF7k (Bld) [Mass fraction] 5.1 %Normal4.3-5.6COhioHealth Mansfield Hospital on above:Order Comment: Specimen Type: BLOOD SPECIMEN Ordering Facility: [facility] Address: [address] [place], [place] [address]Result Comment: [place] [employer] guidelines indicate that patients with HgbA1c in the range 5.7-6.4% are at increased risk for development of diabetes, and intervention by lifestyle modification may be beneficial. HgbA1c greater or equal to 6.5% is considered diagnostic of diabetes.Performed By: #### 40549-1 #### [facility] CLIA [id number] [address] [place] [address] [place] AMERICALarge Joint Arthro/Inj: L shoulder jointon 65-68-6102CacasbwjGuy Salgado MD 04/20/2024 4:00 PM Large Joint Arthro/Inj: L shoulder joint Informed Consent Consent Obtained: Verbal Opp Protocol A moment to CARE was completed. [...] and Plan of Care Visit completed when applicableCleveland Clinic Avon HospitalXR SHLDR >/=3V AP/REBEKA AP/OTHR LTon 10-28-9253OG SHLDR >/=3V AP/REBEKA AP/OTHR LT* * *Final Report* * * DATE OF [...] Expected postsurgical appearance. No other significant abnormality. Appetizer Packer: GREGORY Transcribe Date/Time: Apr 20 2024 2:35P Dictated by : SYDNIE GAITAN MD This examination was interpreted and the report reviewed and electronically signed by: SYDNIE GAITAN MD on Apr 20 2024 2:35PM EST [id number] Medical Cleveland Clinic Rehabilitation Hospital, AvonXR Shoulder - left 3 Views on 04-20-2024* * *Final Report* * * DATE OF [...] Expected postsurgical appearance. No other significant abnormality. Appetizer Packer: Clavister Transcribe Date/Time: Apr 20 2024 2:35P Dictated by : SYDNIE GAITAN MD This examination was interpreted and the report reviewed and electronically signed by: SYDNIE GAITAN MD on Apr 20 2024 2:35PM EST DIVISION OF RADIOLOGYProvider, [facility] [place] - 04/20/2024 * * *Final Report* * [...] Expected postsurgical appearance. No other significant abnormality. Appetizer Packer: PSCB Transcribe Date/Time: Apr 20 2024 2:35P Dictated by : SYDNIE GAITAN MD This examination was interpreted and the report reviewed and electronically signed by: SYDNIE GAITAN MD on Apr 20 2024 2:35PM EST [facility] Medical CenterRadiology Study observation (narrative)[facility] Medical CenterXR Shoulder - left 3 ViewsOrdered By: Ccf Provider on 54-43-5686Wdwxfakhj Clinic Basophils Auto (Bld) [#/Vol]Ordered By: Imseferino Asaad on 35-16-8936Sxihgeevf (Bld) [#/Vol]Automated basophil count0.0-0.2FCleveland Clinic Hillcrest Hospital Basophils/100 WBC Auto (Bld)Ordered By: Imad Asaad on 36-13-6838Cbxwgzlgz/100 WBC (Bld)Automated basophil %.Veterans Health AdministrationComplete Blood Count Auto Diffon 99-98-1686Pihrljkoc (Bld) [#/Vol]0.1 10*3/uLNormal0.0-0.2The [facility] Physician GroupComment on above:Result Comment: PERFORMED BY: [place] [address] PATHOLOGIST CORN SHELLER OPERATOR JASWINDER WILD M.D.Performed By: #### PT, CBC, PTT #### [facility] [address] [place] [address] USABasophils/100 WBC (Bld)0.7 %Normal.The [facility] Hospital Physician GroupComment on above:Performed By: #### PT, CBC, PTT #### [facility] [address] [place] [address] USAEosinophils (Bld) [#/Vol]0.1 10*3/uLNormal0.0-0.45The [facility] Physician GroupComment on above:Performed By: #### PT, CBC, PTT #### [place] [address] USAEosinophils/100 WBC (Bld)1.8 %Normal.The [facility] Physician GroupComment on above:Performed By: #### PT, CBC, PTT #### [facility] [address] [place] [address] USAErythrocyte distribution width (RBC) [Ratio]13.2 %Normal 12.0-14.8The [facility] Hospital Physician GroupComment on above:Performed By: #### PT, CBC, PTT #### [place] [address] USAHematocrit (Bld) [Volume fraction]45.1 %Aiwhqj45.8-50.0The [facility] Physician GroupComment on above:Performed By: #### PT, CBC, PTT #### [place] [address] USAHemoglobin (Bld) [Mass/Vol]15.8 g/uEUkrzqn81.0-17.0The [facility] Physician GroupComment on above:Performed By: #### PT, CBC, PTT #### [place] [address] USALymphocytes (Bld) [#/Vol]1.0 10*3/uLNormal1.00-4.8The [facility] Physician GroupComment on above:Performed By: #### PT, CBC, PTT #### [place] [address] USALymphocytes/100 WBC (Bld)13.6 %Normal.The [facility] Physician GroupComment on above:Performed By: #### PT, CBC, PTT #### [place] [address] USAMCH (RBC) [Entitic mass]29.0 lqKcfxjr04.5-35.2The [facility] Physician GroupComment on above:Performed By: #### PT, CBC, PTT #### [facility] [address] [place] [address] USAMCV (RBC) [Entitic vol]82.9 fLLow83.5-101The [facility] Hospital Physician GroupComment on above:Performed By: #### PT, CBC, PTT #### [facility] [address] [place] [address] USAMean Corpuscular HGB Conc34.9 g/gSSalqui26.5-35.6The [facility] Physician GroupComment on above:Performed By: #### PT, CBC, PTT #### [facility] [address] [place] [address] USAMonocytes (Bld) [#/Vol]0.6 10*3/uLNormal0.0-0.8The [facility] Physician GroupComment on above:Performed By: #### PT, CBC, PTT #### [facility] [address] [place] [address] USAMonocytes/100 WBC (Bld)8.0 %Normal.The [facility] Physician GroupComment on above:Performed By: #### PT, CBC, PTT #### [place] [address] USANeutrophils (Bld) [#/Vol]5.6 10*3/uLNormal1.8-7.7The [facility] Physician GroupComment on above:Performed By: #### PT, CBC, PTT #### [facility] [address] [place] [address] USANeutrophils/100 WBC (Bld)75.9 %Normal.The [facility] Physician GroupComment on above:Performed By: #### PT, CBC, PTT #### [facility] [address] [place] [address] USANRBC%0.1 /100{WBC}Normal0-0.5The [facility]ician Group Comment on above:Performed By: #### PT, CBC, PTT #### [facility] [address] [place] [address] USAPlatelet mean volume (Bld) [Entitic vol]8.4 fLNormal 6.6-10.1The [facility] Physician GroupComment on above:Performed By: #### PT, CBC, PTT #### [facility] [address] [place] [address] USAPlatelets (Bld) [#/Vol]188 10*3/mTMlqcxe411-870Wug [facility] Physician GroupComment on above:Performed By: #### PT, CBC, PTT #### [facility] [address] [place] [address] USARBC (Bld) [#/Vol]5.45 10*6/uLNormal3.90-5.60The [facility] Physician GroupComment on above:Performed By: #### PT, CBC, PTT #### [facility] [address] [place] [address] USAWBC (Bld) [#/Vol]7.4 10*3/uLNormal4.1-10.5The [facility] Physician GroupComment on above:Performed By: #### PT, CBC, PTT #### [facility] [address] [place] [address] USAEosinophils Auto (Bld) [#/Vol]Ordered By: Imad Asaad on 67-70-4276Efgocqmebqf (Bld) [#/Vol]Automated eosinophil count0.0-0.45Veter[facility] Health AdministrationEosinophils/100 WBC Auto (Bld)Ordered By: Imad Asaad on 34-77-2311Swpyenxxxmm/100 WBC (Bld)Automated eosinophil %.[facility] Health AdministrationErythrocyte distribution width Auto (RBC) [Ratio]Ordered By: Imad Asaad on 12-86-0987Kxljabeaqmb distribution width (RBC) [Ratio]Erythrocyte distribution width [Ratio] by Automated count12.0-14.8V[facility] Health AdministrationHematocrit Auto (Bld) [Volume fraction]Ordered By: Imad Asaad on 37-93-7862Rhsyqhjgwu (Bld) [Volume fraction]Hematocrit [Volume Fraction] of Blood by Automated count38.8-50.0[facility] Health AdministrationHemoglobin [Mass/volume] in BloodOrdered By: Imad Asaad on 31-33-4625Twenaknyzj (Bld) [Mass/Vol]Hemoglobin [Mass/volume] in Blood13.0-17.0V[facility] Health AdministrationINR in Platelet poor plasma by Coagulation assayOrdered By: Imad Asaad on 56-98-5154LOB Coag (PPP) [Relative time]INR in Platelet poor plasma by Coagulation assayVeterans Health AdministrationComment on above:INR Therapeutic Range A) Pre- and Peroperative OAT started two weeks before surgery. NOT HIP SURGERY: 1.5 - 2.5 HIP SURGERY: 2 - 3B) Primary and secondary prevention of venous THROMBOSIS: 2 - 3C) Active venous thrombosis, pulmonary embolismand prevention of recurrent venous thrombosis: 2 - 3D) Prevention of arterial thromboembolismincluding patients with mechanical heart valves: 3 - 4.5 Leukocytes [#/volume] corrected for nucleated erythrocytes in Blood by Automated counOrdered By: Imad Asaad on 05-22-0607KYR corrected for nucl RBC Auto (Bld) [#/Vol]Leukocytes [#/volume] corrected for nucleated erythrocytes in Blood by Automated coun4.1-10.5FCleveland Clinic Hillcrest HospitalLymphocytes Auto (Bld) [#/Vol]Ordered By: Imad Asaad on 32-00-1707Ryhkcrxbxbo (Bld) [#/Vol]Lymphocytes [#/volume] in Blood by Automated count1.00-4.8[facility] Lymphocytes/100 WBC Auto (Bld)Ordered By: Imad Asaad on 04-17-2024 Lymphocytes/100 WBC (Bld)Lymphocytes/100 leukocytes in Blood by Automated count. [facility] HospitalH Auto (RBC) [Entitic mass]Ordered By: Imad Asaad on 87-49-6880NKK (RBC) [Entitic mass]MCH [Entitic mass] by Automated count 27.5-35.2FGlenbeigh HospitalHC Auto (RBC) [Mass/Vol]Ordered By: Imad Asaad on 56-28-9809DJYN (RBC) [Mass/Vol]MCHC [Mass/volume] by Automated count32.5-35.6FGlenbeigh HospitalV Auto (RBC) [Entitic vol] Ordered By: Imad Asaad on 83-88-5456DOL (RBC) [Entitic vol]MCV [Entitic volume] by Automated aqrkoQda23.5-101[facility] Health AdministrationMonocytes Auto (Bld) [#/Vol]Ordered By: Imad Asaad on 64-49-7405Vhjbpoqqg (Bld) [#/Vol] Automated blood monocyte count0.0-0.8[facility] Monocytes/100 WBC Auto (Bld)Ordered By: Imad Asaad on 42-28-4465Hkcxcjjrs/100 WBC (Bld)Automated monocyte %.[facility] Health AdministrationNeutrophils Auto (Bld) [#/Vol]Ordered By: Imad Asaad on 17-41-3244Gomelqutxpz (Bld) [#/Vol] Neutrophils [#/volume] in Blood by Automated count1.8-7.7FCleveland Clinic Hillcrest HospitalNeutrophils/100 WBC Auto (Bld)Ordered By: Imad Asaad on 04-17-2024 Neutrophils/100 WBC (Bld)Automated neutrophil %.[facility] Health AdministrationNucleated erythrocytes [Presence] in Blood by Automated countOrdered By: Imad Asaad on 63-91-1553Zwhhweqaw RBC Auto Ql (Bld)Nucleated erythrocytes [Presence] in Blood by Automated count0-0.5FCleveland Clinic Hillcrest Hospital Partial Thromboplastin Timeon 42-78-5318uVJH Coag (Bld) [Time]31.4 sNormal 25.1-36.5The [facility] Physician GroupComment on above:Result Comment: A hematocrit value greater than 55% may lead to inaccurate results in coagulation testing. Patients having hematocrit values >55% require a special collection tube for coagulation studies. Please contact the laboratory at [phone] for redraw instructions. PERFORMED BY: [address] [address] PATHOLOGIST CORN SHELLER OPERATOR JASWINDER WILD M.D.Performed By: #### PT, CBC, PTT #### [address] [address] USAPlatelet mean volume Auto (Bld) [Entitic vol]Ordered By: Imad Asaad on 98-61-4931Xqouovlq mean volume (Bld) [Entitic vol]Platelet mean volume [Entitic volume] in Blood by Automated count6.6-10.1FCleveland Clinic Hillcrest HospitalPlatelets Auto (Bld) [#/Vol]Ordered By: Imseferino Connolly on 04-17-2024 Platelets (Bld) [#/Vol]Platelets [#/volume] in Blood by Automated -127 [facility] AdministrationProthrombin Time INRon 64-33-7447FJV Coag (PPP) [Relative time]1.2 {INR}NormalThe [facility] Hospital Physician GroupComment on above: Result Comment: INR Therapeutic Range [...] patients with mechanical heart valves: 3 - 4.5Performed By: #### PT, CBC, PTT #### [facility] [address] [place] [address] USAPT Coag (PPP) [Time]13.3 sHigh9.0-12.9[facility] Physician [facility] CenterComment on above:Result Comment: A hematocrit value greater than 55% may lead to inaccurate results in coagulation testing. Patients having hematocrit values >55% require a special collection tube for coagulation studies. Please contact the laboratory at [phone] for redraw instructions.Performed By: #### PT, CBC, PTT #### [facility] [address] [place] [address] USAProthrombin time (PT)Ordered By: Imseferino Connolly on 04-17-2024 PT Coag (PPP) [Time]Prothrombin time (PT)High9.0-12.9[facility] Health AdministrationComment on above:A hematocrit value greater than 55% may lead to inaccurate results in coagulation testing. Patientshaving hematocrit values >55% require a special collection tube for coagulation studies. Please contact the laboratory at [phone] for redraw instructions.RBC Auto (Bld) [#/Vol]Ordered By: Imad Oswaldad on 42-74-6583MHJ (Bld) [#/Vol]Erythrocytes [#/volume] in Blood by Automated count3.90-5.60[facility] Health AdministrationWBC Auto (Bld) [#/Vol]Ordered By: Imseferino Connolly on 55-40-2743EFN (Bld) [#/Vol]Leukocytes [#/volume] in Blood by Automated count4.1-10.5FCleveland Clinic Hill[facility] Hospital aPTT in Platelet poor plasma by Coagulation assayOrdered By: Imseferino Connolly on 12-48-8779cPIT Coag (PPP) [Time]Activated partial thromboplastin time (aPTT) in platelet poor plasma by coagulation a25.1-36.5FC[facility] Hospital Comment on above:A hematocrit value greater than 55% may lead to inaccurate results in coagulation testing. Patientshaving hematocrit values >55% require a special collection tube for coagulation studies. Please contact the laboratory at [phone] for redraw instructions.Basophils Auto (Bld) [#/Vol]Ordered By: Imad Mohsen on 13-76-2767Pkwyqpuab (Bld) [#/Vol]Automated basophil count0.0-0.2 [facility] AdministrationBasophils/100 WBC Auto (Bld)Ordered By: Imad Asaad on 87-10-9724Plbhmlayk/100 WBC (Bld)Automated basophil %.[facility] AdministrationComplete Blood Count Auto Diffon 60-50-4720Wzmawfpuw (Bld) [#/Vol]0.1 10*3/uLNormal0.0-0.2The [facility] Physician GroupComment on above:Result Comment: PERFORMED BY: [place] [address] PATHOLOGIST CORN SHELLER OPERATOR JASWINDER WILD M.D.Performed By: #### CBC, PT, PTT #### [facility] [address] [place] [address] USABasophils/100 WBC (Bld)0.8 %Normal.The [facility] Physician GroupComment on above:Performed By: #### CBC, PT, PTT #### [facility] [address] [place] [address] USAEosinophils (Bld) [#/Vol]0.1 10*3/uLNormal0.0-0.45The [facility] Physician GroupComment on above:Performed By: #### CBC, PT, PTT #### [place] [address] USAEosinophils/100 WBC (Bld)1.2 %Normal.The [facility] Physician GroupComment on above:Performed By: #### CBC, PT, PTT #### [place] [address] USAErythrocyte distribution width (RBC) [Ratio]13.9 %Normal 12.0-14.8The [facility] Physician GroupComment on above:Performed By: #### CBC, PT, PTT #### [place] [address] USAHematocrit (Bld) [Volume fraction]45.8 %Ihnrcm38.8-50.0The [facility] Physician GroupComment on above:Performed By: #### CBC, PT, PTT #### [place] [address] USAHemoglobin (Bld) [Mass/Vol]15.7 g/sDQsjcec86.0-17.0The [facility] Physician GroupComment on above:Performed By: #### CBC, PT, PTT #### [place] [address] USALymphocytes (Bld) [#/Vol]1.0 10*3/uLNormal1.00-4.8The [facility] Physician GroupComment on above:Performed By: #### CBC, PT, PTT #### [place] [address] USALymphocytes/100 WBC (Bld)11.1 %Normal.The [facility] Physician GroupComment on above:Performed By: #### CBC, PT, PTT #### [place] [address] USAMCH (RBC) [Entitic mass]29.3 vfTuckfe43.5-35.2The [facility] Physician GroupComment on above:Performed By: #### CBC, PT, PTT #### [facility] [address] [place] [address] USAMCV (RBC) [Entitic vol]85.6 pWXtqodc62.5-101The [facility] Physician GroupComment on above:Performed By: #### CBC, PT, PTT #### [facility] [address] [place] [address] USAMean Corpuscular HGB Conc34.2 g/hHBslmoy89.5-35.6The [facility] Physician GroupComment on above:Performed By: #### CBC, PT, PTT #### [facility] [address] [place] [address] USAMonocytes (Bld) [#/Vol]0.7 10*3/uLNormal0.0-0.8The [facility] Physician GroupComment on above:Performed By: #### CBC, PT, PTT #### [place] [address] USAMonocytes/100 WBC (Bld)7.2 %Normal.The [facility] Physician GroupComment on above:Performed By: #### CBC, PT, PTT #### [place] [address] USANeutrophils (Bld) [#/Vol]7.3 10*3/uLNormal1.8-7.7The [facility] Physician GroupComment on above:Performed By: #### CBC, PT, PTT #### [facility] [address] [place] [address] USANeutrophils/100 WBC (Bld)79.7 %Normal.The [facility] Physician GroupComment on above:Performed By: #### CBC, PT, PTT #### [facility] [address] [place] [address] USANRBC%0.1 /100{WBC}Normal0-0.5[facility] Comment on above:Performed By: #### CBC, PT, PTT #### [place] [address] USAPlatelet mean volume (Bld) [Entitic vol]8.6 fLNormal 6.6-10.1The [facility] Physician GroupComment on above:Performed By: #### CBC, PT, PTT #### [facility] [address] [place] [address] USAPlatelets (Bld) [#/Vol]210 10*3/gCTofxns965-913Otw [facility] Physician GroupComment on above:Performed By: #### CBC, PT, PTT #### [facility] [address] [place] [address] USARBC (Bld) [#/Vol]5.35 10*6/uLNormal3.90-5.60The [facility] Physician GroupComment on above:Performed By: #### CBC, PT, PTT #### [facility] [address] [place] [address] USAWBC (Bld) [#/Vol]9.1 10*3/uLNormal4.1-10.5The [facility] Physician GroupComment on above:Performed By: #### CBC, PT, PTT #### [facility] [address] [place] [address] USAEosinophils Auto (Bld) [#/Vol]Ordered By: Imad Asaad on 84-05-9346Uesmcmbqnpz (Bld) [#/Vol]Automated eosinophil count0.0-0.45[facility] Health AdministrationEosinophils/100 WBC Auto (Bld)Ordered By: Imad Asaad on 67-85-1918Qyeeogtlgfa/100 WBC (Bld)Automated eosinophil %.[facility] AdministrationErythrocyte distribution width Auto (RBC) [Ratio]Ordered By: Imad Asaad on 90-76-5477Bflekficgkt distribution width (RBC) [Ratio]Erythrocyte distribution width [Ratio] by Automated count12.0-14.8[facility] Health AdministrationHematocrit Auto (Bld) [Volume fraction]Ordered By: Imad Asaad on 69-38-4075Nsolahzsbo (Bld) [Volume fraction]Hematocrit [Volume Fraction] of Blood by Automated count38.8-50.0[facility] AdministrationHemoglobin [Mass/volume] in BloodOrdered By: Imad Asaad on 33-59-7588Vejlmwjqma (Bld) [Mass/Vol]Hemoglobin [Mass/volume] in Blood13.0-17.0[facility] AdministrationINR in Platelet poor plasma by Coagulation assayOrdered By: Imad Asaad on 43-37-6380NNZ Coag (PPP) [Relative time]INR in Platelet poor plasma by Coagulation assayVeterans Health AdministrationComment on above:INR Therapeutic Range A) Pre- and Peroperative OAT started two weeks before surgery. NOT HIP SURGERY: 1.5 - 2.5 HIP SURGERY: 2 - 3B) Primary and secondary prevention of venous THROMBOSIS: 2 - 3C) Active venous thrombosis, pulmonary embolismand prevention of recurrent venous thrombosis: 2 - 3D) Prevention of arterial thromboembolismincluding patients with mechanical heart valves: 3 - 4.5 Leukocytes [#/volume] corrected for nucleated erythrocytes in Blood by Automated counOrdered By: Imad Asaad on 06-98-6359AON corrected for nucl RBC Auto (Bld) [#/Vol]Leukocytes [#/volume] corrected for nucleated erythrocytes in Blood by Automated coun4.1-10.5FCleveland Clinic Hillcrest HospitalLymphocytes Auto (Bld) [#/Vol]Ordered By: Imad Asaad on 89-22-5986Kkfdbdfpmog (Bld) [#/Vol]Lymphocytes [#/volume] in Blood by Automated count1.00-4.8[facility] Lymphocytes/100 WBC Auto (Bld)Ordered By: Imad Asaad on 03-13-2024 Lymphocytes/100 WBC (Bld)Lymphocytes/100 leukocytes in Blood by Automated count. [facility] HospitalH Auto (RBC) [Entitic mass]Ordered By: Imad Asaad on 98-08-1007ZUC (RBC) [Entitic mass]MCH [Entitic mass] by Automated count 27.5-35.2FCleveland Clinic Hillcrest HospitalMCHC Auto (RBC) [Mass/Vol]Ordered By: Imad Asaad on 05-25-7658AJPI (RBC) [Mass/Vol]MCHC [Mass/volume] by Automated count32.5-35.6FCleveland Clinic Hillcrest HospitalMCV Auto (RBC) [Entitic vol] Ordered By: Imad Asaad on 28-23-8711TNU (RBC) [Entitic vol]MCV [Entitic volume] by Automated count83.5-101[facility] AdministrationMonocytes Auto (Bld) [#/Vol]Ordered By: Imad Asaad on 67-93-2250Jgaevddln (Bld) [#/Vol]Automated blood monocyte count0.0-0.8[facility] AdministrationMonocytes/100 WBC Auto (Bld)Ordered By: Imad Asaad on 86-44-0892Szwhopouo/100 WBC (Bld)Automated monocyte %.[facility] AdministrationNeutrophils Auto (Bld) [#/Vol] Ordered By: Imad Asaad on 57-70-2530Oksmcaqinfb (Bld) [#/Vol]Neutrophils [#/volume] in Blood by Automated count1.8-7.7[facility] Neutrophils/100 WBC Auto (Bld)Ordered By: ad Asaad on 03-13-2024 Neutrophils/100 WBC (Bld)Automated neutrophil %.[facility] AdministrationNo Panel InformationOrdered By: ad [facility] on 14-61-7270Woozoykpprjrp Pathology TestSee commentVeterans Health AdministrationComment on above:See report. Scanned copy available in EMR.Nucleated erythrocytes [Presence] in Blood by Automated countOrdered By: Imad Asaad on 06-24-9106Lqzaqqoqc RBC Auto Ql (Bld)Nucleated erythrocytes [Presence] in Blood by Automated count0-0.5FCleveland Clinic Hillcrest HospitalPartial Thromboplastin Timeon 34-79-8222zIUL Coag (Bld) [Time]31.7 bBezdrp53.1-36.5The [facility] Physician GroupComment on above:Result Comment: A hematocrit value greater than 55% may lead to inaccurate results in coagulation testing. Patients having hematocrit values >55% require a special collection tube for coagulation studies. Please contact the laboratory at [phone] for redraw instructions. PERFORMED BY: [address] [address] PATHOLOGIST CORN SHELLER OPERATOR JASWINDER WILD M.D.Performed By: #### CBC, PT, PTT #### [address] [place] [address] USAPathology Request for Lab Corpon 32-57-8730Ornpzjvmt Request for Lab CorpNormalThe [facility] Hospital Physician GroupComment on above:Order Comment: PATHOLOGY GI SPECIMENResult Comment: See report. Scanned copy available in EMR. PERFORMED BY: [place] [address] PATHOLOGIST CORN SHELLER OPERATOR JASWINDER WILD M.D.Performed By: #### PATH TO [facility] #### [place] [id number] USAPlatelet mean volume Auto (Bld) [Entitic vol]Ordered By: Ton Akers on 55-77-1089Wmicjzhs mean volume (Bld) [Entitic vol]Platelet mean volume [Entitic volume] in Blood by Automated count6.6-10.1FCleveland Clinic Hillcrest HospitalPlatelets Auto (Bld) [#/Vol]Ordered By: Ton Akers on 03-13-2024 Platelets (Bld) [#/Vol]Platelets [#/volume] in Blood by Automated -653 [facility] AdministrationProthrombin Time INRon 80-32-0046HVX Coag (PPP) [Relative time]1.2 {INR}NormalThe [facility] Physician GroupComment on above: Result Comment: INR Therapeutic Range [...] patients with mechanical heart valves: 3 - 4.5Performed By: #### CBC, PT, PTT #### [place] [id number] USAPT Coag (PPP) [Time]13.3 sHigh9.0-12.9The [facility] Physician GroupComment on above:Result Comment: A hematocrit value greater than 55% may lead to inaccurate results in coagulation testing. Patients having hematocrit values >55% require a special collection tube for coagulation studies. Please contact the laboratory at [phone] for redraw instructions.Performed By: #### CBC, PT, PTT #### [facility] [address] [place] [id number] USAProthrombin time (PT)Ordered By: Ton Connolly on 03-13-2024 PT Coag (PPP) [Time]Prothrombin time (PT)High9.0-12.9[facility] Health AdministrationComment on above:A hematocrit value greater than 55% may lead to inaccurate results in coagulation testing. Patientshaving hematocrit values >55% require a special collection tube for coagulation studies. Please contact the laboratory at [phone] for redraw instructions.RBC Auto (Bld) [#/Vol]Ordered By: Ton Connolly on 14-27-3552HOD (Bld) [#/Vol]Erythrocytes [#/volume] in Blood by Automated count3.90-5.60[facility] AdministrationWBC Auto (Bld) [#/Vol]Ordered By: seferino Akers on 99-61-3817FYQ (Bld) [#/Vol]Leukocytes [#/volume] in Blood by Automated count4.1-10.5[facility] aPTT in Platelet poor plasma by Coagulation assayOrdered By: seferino Connolly on 56-24-3449lXES Coag (PPP) [Time]Activated partial thromboplastin time (aPTT) in platelet poor plasma by coagulation a25.1-36.5FC[facility] Comment on above:A hematocrit value greater than 55% may lead to inaccurate results in coagulation testing. Patientshaving hematocrit values >55% require a special collection tube for coagulation studies. Please contact the laboratory at [phone] for redraw instructions.Office Visiton 73-70-3299Bovhhi-up visit [id number] Nehal Baig 1970 M Date Provider Department Center 02/25/2024 RADHA OLIVARES Family History Problem Relation Age of Onset Lung cancer Mother Epididymitis Father Family Status - Relation Status Age at Mother Father Level of Service:20429 [place] OFFICE/OUTPATIENT ESTABLISHED MOD MDM 30 MIN Reason for Visit and Comments: Hypertension [674384] Congestive Heart Failure [127] Valve Disorder [3372]NormalMemorial Health System [facility] Medical CenterXR Shoulder - left 2 Viewson 62-04-5683Yeqdgjc Result: 4 views left shoulder, Grashey/Zanca/outlet/axillary, taken today and saved to the permanent medical record are reviewed. Prosthesis is unchanged in position and alignment. No signs of prosthetic wear or loosening. No periprosthetic fractures.[facility] HealthcareXR Shoulder - left 2 Viewson 80-76-9451Czxabxuoi Study observation (narrative)[facility] HealthcareED Clinical Summaryon 13-37-3501MG 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 Arrival: 09/26/2023 09:05:07 Discharge: 0:39:00 LOS: 000 01:34 Check In: 09/26/2023 09:05:07 Checkout: 09/26/2023 10:39:00 Address: [address] [place] [address] PCP: DEMETRIUS BERNAL PROVIDER INFORMATION Provider Role [...] Instructions: Follow-Up: With: Address: When: DEMETRIUS BERNAL [facility] [facility], [place] [address] Business (1) , only if needed DIAGNOSIS: Physical exam Patient Understands: Yes - Patient/family/caregiver verbalizes understanding of instructions given Comment:[facility] HospitalED Patient Summaryon 41-99-2604ZN Patient Summary [facility] ? [facility] Care [address] [place] [address] PATIENT DISCHARGE INSTRUCTIONS Patient Information Name: NEHAL BAIG Age: 52 Years Date of : 1970 Reason For Visit: Medical screening exam; DOT PHYSICAL Arrival Time: 09/26/2023 09:05:07 Primary Care Physician: DEMETRIUS BERNAL Attending Physician: Joel Bledsoe PA-C Comment: Patient Education With: Address: When: DEMETRIUS TRISHLucia [facility] [address] [place] [id number] Business (1) , only if needed Medication Information: The exam and treatment you received today in the [facility] Emergency Department were for an urgent problem and are not intended as complete care. It is important for you to follow up with a doctor, nurse practitioner, or physician?s investigative assistant for ongoing care. If your symptoms become worse or you donot improve as expected and you are unable [...] reach you if necessary. [facility] Emergency Department has provided you with a complete list of medications post discharge. 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 ibuprofen (ibuprofen 600 mg oral tablet) 1 tab(s) Oral (given by mouth) 4 times a day as needed forpain. lisinopril (lisinopril 10 mg oral tablet) 1 [...] BY MOUTH IN THE MORNING. Hold medication ifSystolic blood pressure is < 110. Visit Information Visit Diagnosis: Diagnoses This Visit Medical screening exam ([id number]) Physical exam (Z00.00) If you received any [...] collect Urinalysis Standard Urin (more content not included)...[facility] POCT Glucose Levelon 28-88-5382Aiqtxmz [Mass/Vol]112 mg/rLEswxpt40-890Smgbsxzo HospitalComment on above:Result Comment: OPR_ID=[email or web address],TGC FLAG = False,Meter:[id number] [employer] Supervisor:Remy Busby LisaPerformed By: #### [id number] #### [facility] (DEFAULT) [address] [place] [address] 117[address]CL Standardon 02-55-9075Akaccmupzy UABluffton HospitalComment on above:Performed By: #### [id number] #### [facility] (DEFAULT) [address] [place] [address]77[address]Lcfvo (U)YellowNormalMercy Health Urbana Hospital HospitalComment on above: Performed By: #### [id number] #### [facility] (DEFAULT) [address] [place] [address]Nhfsrbr (U) [Mass/Vol]mg/dLNormalMercy Health Urbana Hospital HospitalComment on above:Performed By: #### [id number] #### [facility] (DEFAULT) [address] [place] [address] 326[address]Aymfxfm Ql (U)TRACENormalMercy Health Urbana Hospital HospitalComment on above:Performed By: #### [id number] #### [facility] (DEFAULT) [address] [place] [address] 14417OG BilirubinNegativeNormalMercy Health Urbana Hospital HospitalComment on above:Performed By: #### [id number] #### [facility] (DEFAULT) [address] [place] [address] 16860GH BloodNegativeNormalNEGATIVEMercy Health Urbana Hospital HospitalComment on above:Performed By: #### [id number] #### [facility] (DEFAULT) [address] [place] [address] 93849MF ClarityCLEARNormalCLEARMercy Health Urbana Hospital HospitalComment on above:Performed By: #### [id number] #### [facility] (DEFAULT) [address] [place] [address] 53726SM Leuk EstNegativeNormalNEGATIVEMercy Health Urbana Hospital HospitalComment on above:Performed By: #### [id number] #### [facility] (DEFAULT) [address] [place] [address] 87489YX NitriteNegativeNormalNEGATIVEMercy Health Urbana Hospital HospitalComment on above:Performed By: #### [id number] #### [facility] (DEFAULT) [address] [place] [address] 85467WD pH6.8Giplzr6-3Ycbrfbxk HospitalComment on above: Performed By: #### [id number] #### [facility] (DEFAULT) [address] [place] [address] 77294UZ Lzweouw454DjexhrakIPKGHDEWRlwgzikt HospitalComment on above:Performed By: #### [id number] #### [facility] (DEFAULT) [address] [place] [address] 95962CW Spec Grav>=1.120Cvdewx9.001-1.035[facility] Comment on above:Performed By: #### [id number] #### [facility] (DEFAULT) [address] [place] [address] 78580GY Urobilinogen0.2 mg/dLNormal0.2-1.0[facility] Comment on above:Performed By: #### [id number] #### [facility] (DEFAULT) [address] [place] [address] 75[address]Dvvsm SourceClean CatchNormalMercy Health Urbana Hospital HospitalComment on above:Performed By: #### [id number] #### [facility] (DEFAULT) [address] [place] [address] 39313Mturjf Care Note- Provideron 20-44-8297Xbifac Care Note- ProviderPatient: GAINOK, NEHAL EDWARD Age: 52 years Sex: MALE : 1970 [...] pain or shortness of breath or dizziness. Indicatesthat his doctor told him it was okay to go back to work. Health Status Allergies: Allergic Reactions (Selected) No Known Medication Allergies Problem list (past medical history): All Problems Hypertension / SNOMED CT 4660207798 / Confirmed GERD (gastroesophageal reflux disease) / SNOMED CT 830738775 / Confirmed Diabetes / SNOMED CT 196101641 / Confirmed Objective CONST: -Obese -Acute distress: [...] Plan Assessment and Plan: Diagnosis: Physical exam (GRQ97-TB Z00.00). Orders Orders Patient Care: Glucose POC [...] recently had a mechanical heart valve placed approximately3 to 4 months ago. 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 Patient also shows a echocardiogram from 1 week ago that shows an ejection fraction of 35%. Patient's recent INR's are not in range of 2.5-3.5 which is required by mechanical heart valve. I discussed this with him indicated that he will need a letter releasing him stating he is okay to drive from his sustainable agriculture specialist, I indicated that he needs an echocardiogram that shows an ejection fraction of 40% or greater and also at least 2 months of INRs that are within good adequate range for anticoagulation with his heart valve.Indicated that I would not be able to certify him today. Patient indicated he did not want me to doany further physical examination at this time and would return with appropriate paperwork. Patient also has a history of sleep apnea he did show me a report which was printed off showing good compliance. [Electronically Signed on: 09/26/2023 11:04 EDT] POLY KAUR [Verified on: 09/26/2023 11:04 EDT] POLY KAUR [facility] Care [facility] 20-91-9264[facility] ? [facility] [address] [place] [address] PATIENT DISCHARGE INSTRUCTIONS Patient Information Name: NEHAL [...] legal documents With: Address: When: DEMETRIUS GABE [address], [place] [address] Business (1) , only if needed Medication Information: The exam and treatment you received today in the [facility] were for an urgent problem and are not intended as complete care. It is important for you to follow up with a doctor, nurse practitioner, or physician?s investigative assistant for ongoing care. If your symptoms [...] reach you if necessary. [facility] has provided you with a complete list of medications post discharge. 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 upholstered goods crafter/provider of your visit and for further instruction [...] mouth) 4 times a day as needed forpain. lisinopril (lisinopril 10 mg oral tablet) 1 [...] Centers for Disease Control and Prevention November 2013[facility] Office/Clinic Noteon 66-59-2331Tpzsrq Medicine Office/Clinic NoteHPI Staff Nehal is a 52 year old male presenting to establish care Establish Care: History: Any previous diagnosis: HTN, Heel spurs Asthma, Depression, headaches, headaches, migraines, kidneystones, JACOBY History of seeing any specialist: Dr yung quiñones When was your last doctors visit: Last provider: Dr Aguillon Any recent labs: [facility] around 8 months ago Flu: refused Health Maintenance UTD: Colonoscopy: 2021 PSA: unsure if it has ever been checked Acute: Current issues/complaints: Pt has sleep study done and uses machine would like cpap supplies sent to [facility] in [place] pt does wear full mask- Resmed Air Touch F20 machine is Air Curve 10VAuto Needs refill on lisinopril fYI: pt is seeing Neurology referral was sent through worklinkedü's comp. 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 pt will have them done at [facility] on Saturday. Ordered: Misc Prescription, [...] will send order to medical supplies in [place] Ordered: Misc Prescription, Full Mask Resmed Air [...] Daily, # 90 tab(s), Refills(s) 3, Pharmacy: [facility]/pharmacy #[id number],185.5, cm, 01/09/23 16:37:00 EDT, Height/Length Dosing, 174.3, kg, 01/09/23 16:37:00 EDT, Weight Dosing Follow-up No qualifying data (more content not included)...[facility] HospitalComment on above:Result Comment: Electronically Signed By: Vonnie Gardner\Date and Time Signed: 08/28/23 09:59 EDTConsultation Noteon 96-13-8964Jxxksmyoczkk [id number]#1.00TIFF [facility] HospitalRAD - [facility] Reporton 24-12-8993JWX - CT Report [id number]#1.00TIFFKnox Community HospitalRAD MISCon 28-57-7696WYH - MISC [id number]#1.00TIFFSelect [facility] Correspondenceon 93-61-1701DcjjldhCentraState Healthcare System [id number]#1.00TIFFKnox Community HospitalEchocardiographyon 98-83-8038Dwgppflrejsrdoas [id number]#1.00TIFFSelect [facility] Correspondenceon 81-08-3104HqtbgqlCentraState Healthcare System Vo[id number]#1.00TIFFSelect [facility] Correspondence [id number]#1.00TIFF[facility] Correspondence [id number]#1.00TIFSelect Medical Specialty Hospital - CincinnatiRAD MISVidant [facility] 71-46-1187EPF - MISC [id number]#1.00TIFFKnox Community HospitalRAD - [id number]#1.00TIFSelect Medical Specialty Hospital - CincinnatiRAD - MRI Reporton 13-33-6819TGZ - MRI Report [id number]#1.00TIFNoUC Health CenterED Note-Physicianon 48-79-5263XD Note-Physician [id number]#1.00TIFFKindred Hospital Lima CenterED Note-Physicianon 00-73-8784ET Note-Physician [id number]#1.00TIFSelect Medical Specialty Hospital - CincinnatiRAD - MISCon 42-28-0681FEA - MISC [id number]#1.00[facility] HospitalRAD - [id number]#1.00[facility] HospitalRAD - [id number]#1.00TIFF [facility] HospitalConsultation Noteon 37-34-5498Mipyyqrfwpoq Note [id number]#1.00[facility] County HospitalOperative Reporton 53-74-3513Hdzijhwef Report [id number]#1.00TIFSelect Medical Specialty Hospital - CincinnatiLab Reportson 09-11-4994Yqo Reports [id number]#1.00[facility] HospitalLab Miscellaneous-LCon 71-40-3229Skk MiscellaneousSee Ref ReportInvalid Interpretation Luther[facility] HospitalComment on above:Performed By: #### [id number] ####[facility] [address] [place], [place]Reference Lab Reporton 59-15-4967Efakazihj Lab Report [id number]#1.00TIFMercy Health St[facility] Miscellaneous-LCon 15-69-2545Aai MiscellaneousSee Ref ReportInvalid Interpretation [facility] HospitalComment on above:Result Comment: Performed at: [address] [id number] PhD João Blankenship See scanned report Performed at: [address] [id number] PhD João BlankenshipPerformed By: #### [id number] #### [facility] Laboratory [address] [place], [place] [address]Ofhmxmvst Lab Reporton 96-27-1794Obeblvruq Lab Report [id number]#1.00TIFMercy Health St. [facility]'s [facility] Miscellaneous-LCon 26-28-3028Ilc Miscellaneoussee ref lab repInvalid Interpretation [facility] HospitalComment on above:Performed By: #### [id number] #### [facility] Laboratory [address] [place], [place] [address]Aijefqaka Lab Reporton 14-86-9274Xrtybmpne Lab Report [id number]#1.00TIFSelect Medical Specialty Hospital - CincinnatiAuto Diffon 85-30-8423Forpfwdpu/100 WBC (Bld)0.7 %Normal0.0-2.0[facility] Medical CenterComment on above:Order Comment: Order Added by Discern Expert.Performed By: #### [id number], 4927497, 7029692 #### [facility] Laboratory [address] [place], [place] [address]Huvhxdbra/Leukocytes Auto (Bld) [Pure # fraction]0.1 E9/LNormal 0.0-0.2FChillicothe HospitalComment on above:Order Comment: Order Added by Discern Expert.Performed By: #### 1691109, 5857191, 6698892 #### [facility] Laboratory [address] [place] [address] 23486Udwqnkvmrpq/100 WBC (Bld)2.6 %Normal0.0-8.0[facility] Medical CenterComment on above:Order Comment: Order Added by Discern Expert.Performed By: #### 6517423, 9350886, 0949104 #### [facility] [address] [place] [address] 21723Damnqiwavkl/Leukocytes Auto (Bld) [Pure # fraction]0.2 E9/L Normal0.0-0.5FChillicothe HospitalComment on above:Order Comment: Order Added by Discern Expert.Performed By: #### 7099206, 1656011, 9164166 #### [facility] [address] [place] [address] 439[address]Nbzgkchdqrr/100 WBC (Bld)18.6 %Pxytlx78.0-50.0[facility] Medical CenterComment on above:Order Comment: Order Added by Discern Expert. Performed By: #### 6754461, 5727489, 4491613 #### [facility] [address] [place] [address] 47942Ulhmkbdumag/Leukocytes Auto (Bld) [Pure # fraction]1.3 E9/L Normal1.0-4.0[facility] Medical CenterComment on above:Order Comment: Order Added by Discern Expert.Performed By: #### 7730866, 6994663, 0061062 #### [facility] Laboratory [address] [place] [address] 48119Mfcdrkkmq/100 WBC (Bld)10.3 %Normal4.0-14.0[facility] Medical CenterComment on above:Order Comment: Order Added by Discern Expert.Performed By: #### 0819872, 1177012, 8220864 #### [facility] [address] [place] [address] 32769Ttqipbkyv/Leukocytes Auto (Bld) [Pure # fraction]0.7 E9/LNormal 0.2-1.0[facility] Medical CenterComment on above:Order Comment: Order Added by Discern Expert.Performed By: #### 5458759, 2710571, 6485440 #### [facility] [address] [place] [address] 94131Okhvuolqhft/100 WBC (Bld)67.8 %Scwmsm08.0-75.0[facility] Medical CenterComment on above:Order Comment: Order Added by Discern Expert. Performed By: #### 2113744, 7240953, 7435969 #### [facility] [address] [place] [address] 96750Whdvwdimgri/Leukocytes Auto (Bld) [Pure # fraction]4.8 E9/L Normal2.0-7.5FChillicothe HospitalComment on above:Order Comment: Order Added by Discern Expert.Performed By: #### 1982111, 6574105, 3790747 #### [facility] [address] [place] [address] 34651YDI w/ Auto Diffon 23-67-5630Hnolupkuefv distribution width (RBC) [Ratio]13.1 %Glyjyw41.9-14.2FChillicothe HospitalComment on above: Performed By: #### 1820163, 9107248, 9360498 #### [facility] [address] [place] [address] 72658Oberfdpjsc (Bld) [Volume fraction]39.2 %Hyegdh54.7-49.0[facility] Medical CenterComment on above:Performed By: #### 7869960, 0005957, 3363520 #### [facility] Laboratory [address] [place] [address] 23454Kxrxwufkay (Bld) [Mass/Vol]13.4 g/dLLow13.5-17.5FChillicothe HospitalComment on above:Performed By: #### 3477337, 0160901, 5898007 #### [facility] [address] [place] [address] 46511TFU (RBC) [Entitic mass]29.0 xyJhpqbo89.0-34.0[facility] Medical CenterComment on above:Performed By: #### 9091595, 6911955, 0236750 #### [facility] Laboratory [address] [place] [address] 66129BAJA (RBC) [Mass/Vol]34.3 g/oJOrbpdl74.4-36.0[facility] Medical CenterComment on above:Performed By: #### 9238063, 6945246, 2130914 #### [facility] Laboratory [address] [place] [address] 46330EZD (RBC) [Entitic vol]84.6 wGJptuqu20.0-100.0[facility] CenterComment on above:Performed By: #### 0917298, 1408431, 9878625 #### [facility] [address] [place] [address] 95737Hogvkduq mean volume (Bld) [Entitic vol]7.7 fLNormal6.4-10.8 [facility] CenterComment on above:Performed By: #### 4142526, 2776457, 8483631 #### [facility] [address] [place] [address] 57731Bqrdltgwa (Bld) [#/Vol]261.0 E9/DAltadx010.0-500.0[facility] Medical CenterComment on above:Performed By: #### 8070139, 7348070, 4507109 #### [facility] Laboratory [address] [place] [address] 25303WZK (Bld) [#/Vol]4.6 E12/LNormal4.3-5.9[facility] Medical CenterComment on above:Performed By: #### 2078777, 6434084, 1366744 #### [facility] Laboratory [address] [place] [address] 39363ALW corrected for nucl RBC Auto (Bld) [#/Vol]7.1 E9/LNormal 4.0-11.0[facility] Medical CenterComment on above:Performed By: #### 3883730, 5978193, 2581486 #### [facility] [address] [place], [place] [address]KFSCCTRLGVanarln By: SYSTEM SYSTEM on 38-73-5256ZBK [Mass/Vol] 1.8 mg/dLNormal<=1.9mg/dLFTMC RemisolCRPon 79-64-6630UKZ [Mass/Vol]1.8 mg/dL Normal<=1.9[facility] Medical CenterComment on above:Performed By: #### 8063187, 0554474, 2926770 #### [facility] [address] [place], [place] [address]Zyqpgsk for Treatmenton 50-14-1625Nzudetl for Treatment [id number]#1.00TIFFNormalLouis Stokes Cleveland Va Medical CenterErythrocyte sedimentation rate by Photometric methodOrdered By: Huan Cowan on 67-45-6189MGL Photometric method (Bld) [Velocity]9 mm/hr0-19[facility]eterans Health AdministrationHEMATOLOGYOrdered By: SYSTEM SYSTEM on 03-07-2023 Basophils/100 WBC (Bld)0.7 %Normal0.0 - 2.0 %[facility] HemeAutoSSBasophils/Leukocytes Auto (Bld) [Pure # fraction]0.1 E9/LNormal0.0 - 0.2 E9/LFTMC HemeAutoSS Eosinophils/100 WBC (Bld)2.6 %Normal0.0 - 8.0 %[facility] HemeAutoSS Eosinophils/Leukocytes Auto (Bld) [Pure # fraction]0.2 E9/LNormal0.0 - 0.5 E9/L [facility] HemeAutoSSLymphocytes/100 WBC (Bld)18.6 %Ikcwkb11.0 - 50.0 %[facility] HemeAutoSS Lymphocytes/Leukocytes Auto (Bld) [Pure # fraction]1.3 E9/LNormal1.0 - 4.0 E9/L [facility] HemeAutoSSMonocytes/100 WBC (Bld)10.3 %Normal4.0 - 14.0 %[facility] HemeAutoSS Monocytes/Leukocytes Auto (Bld) [Pure # fraction]0.7 E9/LNormal0.2 - 1.0 E9/L [facility] HemeAutoSSNeutrophils/100 WBC (Bld)67.8 %Axayky77.0 - 75.0 %[facility] HemeAutoSS Neutrophils/Leukocytes Auto (Bld) [Pure # fraction]4.8 E9/LNormal2.0 - 7.5 E9/L [facility] HemeAutoSSHEMATOLOGYOrdered By: Juanita Chen on 64-03-1122Rrezfiaigca distribution width (RBC) [Ratio]13.1 %Akxqnd09.9 - 14.2 %[facility] HemeAutoSS Hematocrit (Bld) [Volume fraction]39.2 %Lekdcu59.7 - 49.0 %[facility] HemeAutoSS Hemoglobin (Bld) [Mass/Vol]13.4 g/dLLow13.5 - 17.5 gm/dLFTMC HemeAutoSSMCH (RBC) [Entitic mass]29.0 msUpfssh51.0 - 34.0 pgFTMC HemeAutoSSMCHC (RBC) [Mass/Vol] 34.3 g/zHMyxrzg21.4 - 36.0 gm/dLFTMC HemeAutoSSMCV (RBC) [Entitic vol]84.6 fL Kikeoq44.0 - 100.0 fLFTMC HemeAutoSSPlatelet mean volume (Bld) [Entitic vol]7.7 fLNormal6.4 - 10.8 fLFTMC HemeAutoSSPlatelets (Bld) [#/Vol]261.0 E9/WTsagja738.0 - 500.0 E9/LFTMC HemeAutoSSRBC (Bld) [#/Vol]4.6 E12/LNormal4.3 - 5.9 E12/LFTMC HemeAutoSSWBC corrected for nucl RBC Auto (Bld) [#/Vol]7.1 E9/LNormal4.0 - 11.0 E9/LFTMC HemeAutoSSLab Miscellaneous-LCon 16-37-7633Ozlv Dfay297165Zbwwdyx Interpretation CodeSaleem Greater Baltimore Medical CenterComment on above:Performed By: #### [id number] #### [facility] Laboratory [address] [place], [place] [address]Gxfj CodeTO FIRELANDSInvalid Interpretation [facility] HospitalComment on above:Performed By: #### [id number] #### [facility] [address] [place], [place] [address]Uepp NameIL 6Invalid Interpretation CodeLouis Stokes Cleveland Va Medical CenterComment on above:Performed By: #### [id number] #### [facility] [address] [place], [place] [address]Oycy NameSED RATE/FIREALInvalid Interpretation [facility] HospitalComment on above:Performed By: #### [id number] #### [facility] [address] [place], [place] [address]Dluxqygih Orderon 64-55-0913Tqqzjdhdd Order [id number]#1.00TIFFKnox Community HospitalReference Laboratory TestingOrdered By: Yasmeen Ca on 23-25-0251Gnumvq [Moles/Vol]220975 mmol/LInvalid Interpretation CodeNOR[facility]WEST [facility] [place] SendOutsSSTest CodeTO FIRELANDSInvalid Interpretation CodeNORTHWEST SURGICAL HOSP[facility] [place] SendOutsSSTest NameSED RATE/FIREAL Invalid Interpretation CodeNORTHWEST SURGICAL [facility] [place] SendOutsSSTest NameIL 6Invalid Interpretation CodeNORTHWEST SURGICAL [facility]OSP[facility] [place] SendOutsSSOperative Reporton 73-19-5714Fhsxkigtk Report [id number]#1.00TIFFKnox Community HospitalFormson [id number]#1.00TIFF [facility] HospitalProvider Letteron 22-13-7188Jvbyvtar Letter [address] [place] [address] February 27, 2023 NEHAL LOW[address]AL[address] [place] [address] : [address] Mazariegos, The above patient has been evaluated at your request for preoperative clearance. After assessment of available pertinent labs and diagnostic tests, I feel this patient is medicallyoptimized for surgery. Final discretion of whether the patient is cleared for surgery remains up tothe surgeon/anesthesiologist. Thank you, Vonnie Guerreor, OFFICE MACHINE SERVICER APPRENTICE-CNormalLouis Stokes Cleveland Va Medical CenterAuto Diffon 02-26-2023 Basophils/100 WBC (Bld)0.6 %Normal0.0-2.0[facility] Medical CenterComment on above:Order Comment: Order Added by Discern Expert.Performed By: #### 7675042, 0980670 ####[address] [address]Xjduwvowu/Leukocytes Auto (Bld) [Pure # fraction]0.1 E9/LNormal0.0-0.2 [facility] Medical CenterComment on above:Order Comment: Order Added by Wilbert Expert.Performed By: #### 4674158, 5514467 ####[address] [address]Qxmvrjlixtg/100 WBC (Bld)2.3 % Normal0.0-8.0[facility] Medical CenterComment on above:Order Comment: Order Added by Wilbert Expert.Performed By: #### 3820140, 4093262 ####[place] [place], [place] [address]Bhbdruglbmr/Leukocytes Auto (Bld) [Pure # fraction]0.2 E9/LNormal0.0-0.5FChillicothe Hospital Comment on above:Order Comment: Order Added by Discern Expert.Performed By: #### 9564853, 2200976 ####[place] [place], [place] [address]Arzncztfcma/100 WBC (Bld)16.2 %Fthiln67.0-50.0[facility] Medical CenterComment on above:Order Comment: Order Added by Wilbert Expert. Performed By: #### 0103540, 8041157 ####[place] [place], [place] [address]Qypdbtgaxtr/Leukocytes Auto (Bld) [Pure # fraction]1.5 E9/LNormal1.0-4.0[facility] Medical CenterComment on above:Order Comment: Order Added by Discern Expert.Performed By: #### 8953370, 4409508 ####[address] [address]Dlwykyfti/100 WBC (Bld)6.8 %Normal4.0-14.0[facility] Comment on above:Order Comment: Order Added by Discern Expert.Performed By: #### 0358016, 7936437 ####[address] [address]Sdvccmldi/Leukocytes Auto (Bld) [Pure # fraction]0.6 E9/L Normal0.2-1.0[facility] Medical CenterComment on above:Order Comment: Order Added by Discern Expert.Performed By: #### 4835198, 7593315 ####[address] [address]Kzhspeqclwq/100 WBC (Bld)74.1 %Ilovru17.0-75.0[facility] Medical CenterComment on above:Order Comment: Order Added by Discern Expert.Performed By: #### 9482312, 7457373 ####[address] [address] Neutrophils/Leukocytes Auto (Bld) [Pure # fraction]6.6 E9/LNormal2.0-7.5FChillicothe HospitalComment on above:Order Comment: Order Added by Discern Expert.Performed By: #### 9544276, 6310279 ####[address] [address]WDQ w/ Auto Diffon 02-26-2023 Erythrocyte distribution width (RBC) [Ratio]13.6 %Azxgvg24.9-14.2FChillicothe HospitalComment on above:Performed By: #### 1100572, 7365494 ####[address] [address]Rpncgbfgui (Bld) [Volume fraction]40.5 %Prhepa55.7-49.0[facility] Medical CenterComment on above:Performed By: #### 8953376, 7596694 ####[address] [address]Wxisowshja (Bld) [Mass/Vol]13.9 g/dL Tuedwe11.5-17.5FChillicothe HospitalComment on above:Performed By: #### 1959262, 4713913 ####[address] [address]AOX (RBC) [Entitic mass]28.9 heCdgtps29.0-34.0[facility] Medical CenterComment on above:Performed By: #### 0202366, 0388935 ####[address] [address]XNGE (RBC) [Mass/Vol]34.3 g/fRPowkjn31.4-36.0[facility] Medical CenterComment on above: Performed By: #### 1296156, 6356339 ####[address] [address]EGI (RBC) [Entitic vol]84.2 fLNormal 80.0-100.0[facility] Medical CenterComment on above:Performed By: #### 6518771, 5355586 ####[address] [address]Xbpsguwx mean volume (Bld) [Entitic vol]7.7 fLNormal6.4-10.8 [facility] Medical CenterComment on above:Performed By: #### 6416377, 8794019 ####[address] [address] Platelets (Bld) [#/Vol]244.0 E9/KYbceqw186.0-500.0[facility] Comment on above:Performed By: #### 6490135, 9217780 ####[address] [address]LRF (Bld) [#/Vol]4.8 E12/L Normal4.3-5.9[facility] Medical CenterComment on above:Performed By: #### 5581165, 6952397 ####[facility] [address] [place], [place] [address]JAJ corrected for nucl RBC Auto (Bld) [#/Vol]8.9 E9/LNormal 4.0-11.0[facility] Medical CenterComment on above:Performed By: #### 8329139, 9476665 ####[facility] [address] [place], [place] [address]Oncedij for Treatmenton 55-67-1034Htszwnh for Treatment [id number]#1.00TIFFNormalLouis Stokes Cleveland Va Medical CenterHEMATOLOGYOrdered By: SYSTEM SYSTEM on 10-91-0987Ffvplhdch/100 WBC (Bld) 0.6 %Normal0.0 - 2.0 %[facility] HemeAutoSSBasophils/Leukocytes Auto (Bld) [Pure # fraction]0.1 E9/LNormal0.0 - 0.2 E9/LFTMC HemeAutoSSEosinophils/100 WBC (Bld)2.3 %Normal0.0 - 8.0 %[facility] HemeAutoSSEosinophils/Leukocytes Auto (Bld) [Pure # fraction]0.2 E9/LNormal0.0 - 0.5 E9/LFTMC HemeAutoSSLymphocytes/100 WBC (Bld) 16.2 %Ydhjxt72.0 - 50.0 %[facility] HemeAutoSSLymphocytes/Leukocytes Auto (Bld) [Pure # fraction]1.5 E9/LNormal1.0 - 4.0 E9/LFTMC HemeAutoSSMonocytes/100 WBC (Bld)6.8 %Normal4.0 - 14.0 %[facility] HemeAutoSSMonocytes/Leukocytes Auto (Bld) [Pure # fraction]0.6 E9/LNormal0.2 - 1.0 E9/LFTMC HemeAutoSSNeutrophils/100 WBC (Bld) 74.1 %Stclgj40.0 - 75.0 %[facility] HemeAutoSSNeutrophils/Leukocytes Auto (Bld) [Pure # fraction]6.6 E9/LNormal2.0 - 7.5 E9/LFC HemeAutoSSHEMATOLOGYOrdered By: Michael Earl on 11-57-5007Vhcmcqinngx distribution width (RBC) [Ratio]13.6 % Imqtgz96.9 - 14.2 %[facility] HemeAutoSSHematocrit (Bld) [Volume fraction]40.5 %Normal 37.7 - 49.0 %[facility] HemeAutoSSHemoglobin (Bld) [Mass/Vol]13.9 g/nLJieizl08.5 - 17.5 gm/dLFTMC HemeAutoSSMCH (RBC) [Entitic mass]28.9 xrQarbqr55.0 - 34.0 pgFTMC HemeAutoSSMCHC (RBC) [Mass/Vol]34.3 g/kYNvqmms95.4 - 36.0 gm/dLFTMC HemeAutoSS MCV (RBC) [Entitic vol]84.2 nZYzpyzv72.0 - 100.0 fLFTMC HemeAutoSSPlatelet mean volume (Bld) [Entitic vol]7.7 fLNormal6.4 - 10.8 fLFTMC HemeAutoSSPlatelets (Bld) [#/Vol]244.0 E9/TSiryji206.0 - 500.0 E9/LFC HemeAutoSSRBC (Bld) [#/Vol] 4.8 E12/LNormal4.3 - 5.9 E12/LFC HemeAutoSSWBC corrected for nucl RBC Auto (Bld) [#/Vol]8.9 E9/LNormal4.0 - 11.0 E9/LFASCENSION ST. [facility] HemeAutoSSPhysician Orderon 85-68-6813Ldkahoctf [id number]#1.00TIFFNoal [facility] Medical CenterCHEMISTRYOrdered By: SYSTEM SYSTEM on 18-62-2675KFE [Mass/Vol]6.7 mg/dLHigh<=1.9mg/dLFT RemisolCRPon 10-74-9418AUX [Mass/Vol]6.7 mg/dLHigh<=1.9[facility] Medical CenterComment on above:Performed By: #### 6346932 ####[facility] [address] [place] [address]Hbhvrqk for Treatmenton 25-45-2224Xrgqavw for Treatment [id number]#1.00TIFUniversity Hospitals Cleveland Medical Center CenterED Note-Physicianon 11-49-0258TZ Note-Physician [id number]#1.00TIFSelect Medical Specialty Hospital - CincinnatiLab Miscellaneous-LCon 21-93-1508Tgdl Iszj247380Rqtklta Interpretation [facility] HospitalComment on above:Performed By: #### [id number] ####[facility] [address] [place] [place], [place]Epvq NameInterleukin-6Invalid Interpretation [facility] HospitalComment on above:Performed By: #### [id number] ####[facility] Htursnkqkf[address] [facility] MD[address]Fuwlahfmg Orderon 21-31-0918Byvnmqdby [id number]#1.00[facility] HospitalRAD - MISCon 96-45-0371ENG - MISC [id number]#1.00TIFSelect Medical Specialty Hospital - CincinnatiReference Laboratory TestingOrdered By: Elysia Oseguera on 02-25-2023 Sodium [Moles/Vol]782754 mmol/LInvalid Interpretation CodeNOR[facility] [place] [place] SendOutsSSTest NameInterleukin-6Invalid Interpretation CodeNORTHWEST SURGICAL [facility] [place] SendOutsSSConsultation Noteon 90-76-2021Iymynijbatlc [id number]#1.00TIFF [facility] HospitalOperative Reporton 45-70-6506Nfitzgtfa Report [id number]#1.00[facility] HospitalConsultation Noteon 90-20-2458Vhcfgftadrdk Note [id number]#1.00[facility] HospitalRAD - MRI Reporton 23-57-0501NHU - MRI Report [id number]#1.00[facility] HospitalRAD - MISCon 09-15-8721DYS - MISC [id number]#1.00[facility] HospitalRAD - [id number]#1.00[facility] HospitalLab Reportson 94-96-8469Ucc Reports [id number]#1.00[facility] HospitalLab [id number]#1.00[facility] HospitalRetail - Clinical Noteon 86-90-3952Fbdspy - Clinical Note [id number]#1.00[facility] HospitalAmbulatory Visit Summaryon 81-74-0045Aslgxbjqdt Visit Summary SAFIA NEHAL Hancock :1970 Visit Date:01/09/2023 Ambulatory Visit Instructions Your [...] 3 Milliliter Inhalation Every 6 hours as neededfor for wheezing Unchanged aspirin (aspirin 81 mg [...] for. Depression Obesity shoulder pain sleep disorder [facility] HospitalXR ankle LT min 3V*on 12-16-2022 XR ankle LT min 3V*[facility] [employer] Other XR ankle LT min 3V*[facility] [employer] Other XR ankle LT min 3V*1111 [facility] [employer] Other XR ankle LT min 3V*KARLO Sarmiento [address] [place] [address] [employer] Other XR ankle LT min 3V*XRay [facility] [employer] Other XR ankle LT min 3V*[facility] [employer] Other XR ankle LT min 3V*Patient: Nehal Baig MR#: [id number] [employer] Other XR ankle LT min 3V*[facility] [employer] Other XR ankle LT min 3V*: 1970 Acct:[id number] [facility] [employer] Other XR ankle LT min 3V*Age/Sex: 52 / M ADM Date: 12/16/22 [facility] [employer] Other XR ankle LT min 3V*Loc: XDUCLY Room: Type: [facility] [employer] Other XR ankle LT min 3V*Attending Dr: Kelly MALONEY [facility] [employer] Other XR ankle LT min 3V*Copies to: HAIDER Larson [facility] [employer] Other XR ankle LT min 3V*Ordering Provider: KRISTI LarsonMer[facility], [facility] [employer] Other XR ankle LT min 3V*Date of Service: 12/16/22[facility] [employer] Other XR ankle LT min 3V* XR/XR ankle LT min 3V*: LEFT ANKLE PAINBrinkhaven [employer] Other XR ankle LT min 3V*XR ankle LT min 3V* 12/16/2022 10:31 [facility] [employer] Other XR ankle LT min 3V*SIGNS AND SYMPTOMS: Pain and swelling of the posterior left ankleBrinkhaven [employer] Other XR ankle LT min 3V*PROTOCOL: Frontal, lateral, and oblique radiographs of the left ankleBrinkhaven [employer] Other XR ankle LT min 3V*COMPARISON: [facility] [employer] Other XR ankle LT min 3V*FINDINGS:[employer] Other XR ankle LT min 3V*The ankle mortise is preserved. There is no evidence of fracture or dislocation. There is AchillesNort [employer] Other XR ankle LT min 3V*surface calcaneal spurring. There is soft tissue swelling diffusely which is nonspecific.[employer] Other XR ankle LT min 3V* XR/XR ankle LT min 3V*[employer] Other XR ankle LT min 3V*IMPRESSION:[employer] Other XR ankle LT min 3V*No fracture.[employer] Other XR ankle LT min 3V*Diffuse soft tissue swelling.[employer] Other XR ankle LT min 3V*There is Achilles surface calcaneal spurring.[employer] Other XR ankle LT min 3V*Impression dictated by: Nehal Horner M.D.12/16/2022 10:42 [facility] [address] [employer] Other XR ankle LT min 3V*Dictation Location: [place] [address] [employer] Other XR ankle LT min 3V*Transcribed By: MARLO 12/16/22 [facility] [employer] Other XR ankle LT min 3V*Dictated By: Nehal Horner II, MD 12/16/[address] [place], [place] [address] Other XR ankle LT min 3V*Signed By:[employer] Other XR ankle LT min 3V*12/16/22 [facility]in[facility] Other US KIDNEY/BLADDERon 53-16-2390PX KIDNEY/BLADDER* * *Final Report* * * DATE OF EXAM: May 26 2022 2:34PM [address] KIDNEY/BLADDER / PROCEDURE REASON: Proteinuria, unspecified type [...] No evidence of renal calculus or hydronephrosis. Appetizer Packer: GREGORY Transcribe Date/Time: May 26 2022 2:43P Dictated by : BOB RODRIGUEZ MD This examination was interpreted and the report reviewed and electronically signed by: BOB RODRIGUEZ MD on May 27 2022 5:50AM EST [id number] Hospital WO CONon 91-76-3151GWB CSPINE WO CONEXAMINATION: MRI [facility] CON HISTORY: Strain of neck muscle COMPARISON: [...] Electronically authenticated by: KINGSLEY HERRERA Date: 2022-04-23 06:50[facility] HospitalXR FOREIGN BODY EYEon 62-17-4542IS FOREIGN BODY EYEEXAMINATION: XR FOREIGN BODY EYE HISTORY: Foreign body in eye COMPARISON: No relevant comparison available. FINDINGS: ORBITS: Negative for a metallic foreign body. OTHER: Negative. IMPRESSION: 1. No metallic foreign body within the orbits. Electronically authenticated by: JAYY GIVENS Date: 2022-04-20 13:52[facility] HospitalECHOon 23-57-5204Akuziysxo ClinicNo Panel Informationon 70-12-0886Jwutvrbge ClinicUS CAROTID BILATon 01-79-4918Ldxnmqbye ClinicCT CHEST WO IVCONon 62-33-1084LV CHEST WO IVCON* * *Final Report* * * DATE OF EXAM: Sep 18 2021 12:09PM [facility] 0541 - CT CHEST WO IVCON [...] No abnormality in the imaged upper abdomen. Manager Home (topogram) images: No additional findings. IMPRESSION: Stable pulmonary nodules including the 7 mm nodule along the minor fissure. Transcribed Using Voice Recognition Transcribe Date/Time: Sep 20 2021 2:25P Dictated by: POLY JACKSON MD This examination was interpreted and the report reviewed and electronically signed by: POLY JACKSON MD on Sep 20 2021 2:33PM EST [id number] HospitalBLOOD BANKOrdered By: Darcie Medina on 53-22-5417ZGH/Rh InterpNegativeInvalid Interpretation CodeNORTHWEST SUR[facility] [place] BB Subsection ABSC Gel InterpNegative (08/23/21 6:20 AM)NormalNORTHWEST SURGICAL HOSPITAL – [place] BB SubsectionCHEMISTRYOrdered By: Randi Joya on 44-73-3651Vjqbsdx [Mass/Vol]113 mg/aJApzm57 - 99 mg/dLNORTHWEST SURGICAL HOSPITAL – [place] POC SubsectionComment on above:Result Comment: Cleaned MeterPOC Device [id number] Interpretation CodeNORTHWEST SURGICAL HOSPITAL – [place] POC SubsectionPOC User [id number] Interpretation CodeNORTHWEST SURGICAL HOSPITAL [facility] [place] POC SubsectionPOC UsernameGRANDY, KALAInvalid Interpretation CodeNORTHWEST SURGICAL [facility]OSPITAL [facility] [place] POC SubsectionURINALYSISOrdered By: Cortney Schneider on 27-04-1625Vvrymkey LM Ql (Urine sed)Trace /HPFNormalTrace/HPFNORTHWEST SURGICAL HOSPITAL [facility] [place] UA Auto SSBilirubin Ql (U)Negative (08/23/21 7:36 AM)NormalNegativeNORTHWEST SURGICAL HOSPITAL [facility] [place] UA Auto SSClarity (U)Clear (08/23/21 7:36 AM)NormalClearFASCENSION ST. [facility] [place] UA Auto SSColor (U)Yellow (08/23/21 7:36 AM)NormalYellowNORTHWEST SURGICAL HOSPITAL – [place] UA Auto SSEpithelial cells.squamous LM.HPF (Urine sed) [#/Area]3-4 /HPFNormal0-2/HPFNORTHWEST SURGICAL HOSPITAL [facility] [place] UA Auto SSGlucose Test strip (U) [Mass/Vol]Negative (08/23/21 7:36 AM)NormalNegativeNORTHWEST SURGICAL [facility]OSPITAL [facility] [place] UA Auto SSHemoglobin Ql (U)Negative (08/23/21 7:36 AM)NormalNegativeNORTHWEST SUR[facility]ICAL [facility]OSP[facility] [place] UA Auto SSKetones (U) [Mass/Vol]Negative (08/23/21 7:36 AM)NormalNegativeNORTHWEST SURGICAL [facility]OSPITAL [facility] [place] UA Auto SSLithium.plasma/Carrabelle.RBC (Bld) [Mass ratio]0-3 /HPFNormal0-3/HPFNORTHWEST SURGICAL HOSPITAL [facility] [place] UA Auto SSMucus Ql (Urine sed)1+ (08/23/21 7:36 AM)NormalNORTHWEST SURGICAL HOSPITAL [facility] [place] UA Auto SSNitrite Ql (U)Negative (08/23/21 7:36 AM)NormalNegativeNORTHWEST SUR[facility]ICAL [facility]OSP[facility] [place] UA Auto SSpH (U)6.0 *NA* (08/23/21 7:36 AM)Invalid Interpretation Code5.0 - 9.0[facility] [place] UA Auto SSProtein (U) [Mass/Vol]Negative (08/23/21 7:36 AM)NormalNegativeNORTHWEST SURGICAL [facility]ITAL [facility] [place] UA Auto SSSpecific gravity (U) [Rel density] 1.025 *NA* (08/23/21 7:36 AM)Invalid Interpretation Code1.005 - 1.030[facility] [place] UA Auto SSUA Spec DescFoley (08/23/21 7:36 AM)NormalNORTHWEST SURGICAL HOSPITAL [facility] [place] UA Auto SSUrobilinogen Qn (U)1.6142312 {Sean'U}/dLNormal0.0 - 1.0 EU/dLNORTHWEST SURGICAL HOSPITAL [facility] [place] UA Auto SSWBC Auto Ql (U)Negative (08/23/21 7:36 AM)NormalNegativeNORTHWEST SUR[facility]ICAL [facility] [place] UA Auto SSWBC LM.HPF (Urine sed) [#/Area]0-5 /HPFNormal0-5/HPFNORTHWEST SURGICAL HOSPITAL [facility] [place] UA Auto SSBLOOD BANKOrdered By: Kat Salcedo on 30-27-9490UOG/Rh Retype InterpNegativeInvalid Interpretation CodeNORTHWEST SURGICAL HOSPITAL [facility] [place] BB SubsectionCHEMISTRYOrdered By: SYSTEM SYSTEM on 05-77-1675Zoexq gap [Moles/Vol] 11 mmol/LNormal6 - 16 mEq/LFTMC RemisolChloride [Moles/Vol]104 mmol/UUjekbu837 - 111 mmol/LFTMC RemisolCO2 [Moles/Vol]25 mmol/WNyaybs43 - 31 mmol/LFTMC Remisol Creatinine [Mass/Vol]0.8 mg/dLNormal0.5 - 1.3 mg/dLFT RemisolGFR/1.73 sq M.predicted among blacks MDRD (S/P/Bld) [Vol rate/Area]mL/min/1.73 h4Gljseb >=59mL/min/1.73 m2FT Chem SGFR/1.73 sq M.predicted among non-blacks MDRD (S/P/Bld) [Vol rate/Area]mL/min/1.73 y6Mkcixm>=59mL/min/1.73 m2NOR[facility] [place] Chem S Glucose [Mass/Vol]103 mg/rQEeiztp47 - 199 mg/dLFT RemisolPotassium [Moles/Vol] 4.0 mmol/LNormal3.5 - 5.3 mmol/LFTMC RemisolSodium [Moles/Vol]136 mmol/LNormal 135 - 145 mmol/LFTMC RemisolUrea nitrogen [Mass/Vol]23 mg/dLHigh5 - 21 mg/dLNORTHWEST SURGICAL HOSPITAL [facility] [place] RemisolHEMATOLOGYOrdered By: Kenia Landin on 81-54-0539Dgvmlqciheg distribution width (RBC) [Ratio]13.0 %Qejlmk82.9 - 14.2 %[facility] HemeAutoSS Hematocrit (Bld) [Volume fraction]40.3 %Zyizvv77.7 - 49.0 %FT HemeAutoSS Hemoglobin (Bld) [Mass/Vol]14.3 g/nHJbgdrj21.5 - 17.5 gm/dLFTMC HemeAutoSSMCH (RBC) [Entitic mass]29.7 vcHqmael80.0 - 34.0 pgFTM HemeAutoSSMCHC (RBC) [Mass/Vol]35.6 g/bAXaozbt86.4 - 36.0 gm/dLFTMC HemeAutoSSMCV (RBC) [Entitic vol] 83.6 tNVzyali11.0 - 100.0 fLFTMC HemeAutoSSPlatelet mean volume (Bld) [Entitic vol]8.9 fLNormal6.4 - 10.8 fLFTMC HemeAutoSSPlatelets (Bld) [#/Vol]190.0 E9/L Lyowlb952.0 - 500.0 E9/LFTMC HemeAutoSSRBC (Bld) [#/Vol]4.8 E12/LNormal4.3 - 5.9 E12/LFC HemeAutoSSWBC corrected for nucl RBC Auto (Bld) [#/Vol]4.8 E9/LNormal 4.0 - 11.0 E9/[facility] HemeAutoSSURINALYSISOrdered By: Anita Case on 08-08-2021 Bacteria LM Ql (Urine sed)Trace /HPFNormalTrace/HPFFT UA Auto SSBilirubin Ql (U)Negative (08/08/21 10:04 AM)NormalNegativeNORTHWEST SUR[facility]OSP[facility] [place] UA Auto SSClarity (U)Clear (08/08/21 10:04 AM)NormalClearFASCENSION ST. [facility] [place] UA Auto SSColor (U)Yellow (08/08/21 10:04 AM)NormalYellowFT UA Auto SSCrystals LM Ql (Urine sed)Present (08/08/21 10:04 AM)NormalFT UA Auto SSEpithelial cells.squamous LM.HPF (Urine sed) [#/Area]0-2 /HPFNormal0-2/HPFFTMC UA Auto SSGlucose Test strip (U) [Mass/Vol]Negative (08/08/21 10:04 AM)NormalNegativeFT UA Auto SSHemoglobin Ql (U)Negative (08/08/21 10:04 AM)NormalNegativeFT UA Auto SSKetones (U) [Mass/Vol]Negative (08/08/21 10:04 AM)NormalNegativeFT UA Auto SSLithium.plasma/Carrabelle.RBC (Bld) [Mass ratio]0-3 /HPFNormal0-3/HPFFTMC UA Auto SSMucus Ql (Urine sed)1+ (08/08/21 10:04 AM)NormalFT UA Auto SSNitrite Ql (U)Negative (08/08/21 10:04 AM)NormalNegativeFT UA Auto SSpH (U)6.0 *NA* (08/08/21 10:04 AM)Invalid Interpretation Code5.0 - 9.0FT UA Auto SSProtein (U) [Mass/Vol]Negative (08/08/21 10:04 AM)NormalNegativeFTMC UA Auto SSSpecific gravity (U) [Rel density]1.025 *NA* (08/08/21 10:04 AM)Invalid Interpretation Code1.005 - 1.030[facility] UA Auto SSUA Spec DescClean Catch (08/08/21 10:04 AM)NormalNORTHWEST SURGICAL HOSPITAL [facility] [place] UA Auto SSUrobilinogen Qn (U)0.8508195 {Sean'U}/dLNormal0.0 - 1.0 EU/dLNORTHWEST SURGICAL HOSPITAL [facility] [place] UA Auto SSWBC Auto Ql (U)Negative (08/08/21 10:04 AM)NormalNegativeNORTHWEST SUR[facility]ICAL [facility] [place] UA Auto SSWBC LM.HPF (Urine sed) [#/Area]0- 5 /HPFNormal0-5/HPFNORTHWEST SURGICAL HOSPITAL [facility] [place] UA Auto SSANES POSTPROC EVALon [id number] POSTPROC EVALHNO ID: [id number] Author: Lucy Flanagan MD Service: Anesthesiology Author Type: Anesthesiologist Type: Anesthesia Postprocedure Evaluation Filed: 07/31/2021 12:56 PM Note Text: POST ANESTHESIA EVALUATION NOTE : 1970 Procedure Summary Date: 07/31/21 Room / Location: [facility] Endoscopy Anesthesia Start: 1053 Anesthesia Stop: 1145 Procedure: COLONOSCOPY DIAGNOSTIC Diagnosis: Dark stools (OTHER) Scheduled Providers: Jayy Patel MD; Cori Ashley APRN.POLYMERIZATION ENGINEER; Lucy Flanagan MD Responsible Provider: Lucy [...] July 31, 2021 TIME: 12:55 PM CSN: [id number] Hospital PRE-OPon 49-79-6146PDFY PRE-OPHNO ID: [id number] Author: Lucy Flanagan MD Service: Anesthesiology Author Type: Anesthesiologist Type: Anesthesia Preprocedure Evaluation Filed: 07/31/2021 9:50 AM Note Text: ANESTHESIOLOGY DAY OF SURGERY NOTE : 1970 Procedure Information Date/Time: 07/31/21 1030 Scheduled providers: Jayy Patel MD; Cori Ashley APRN.POLYMERIZATION ENGINEER; Lucy Flanagan MD Procedure: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 15:00-3472PxX7% (BldA) [Mass fraction]96 % Kandis Scally Other [employer] Other 11-06-2023 15:00-0500Systolic blood mm[Hg] Kandis Scally Other [employer] Other 10-19-2023 08:40-0400Body oeeucg863.88 cmSiri Quezada Other [employer] Other 10-19-2023 08:40-0400Body mass index (BMI) [Ratio] 51.67 kg/l0TnwomybSiri Quezada Other [employer] Other 10-19-2023 08:40-0400Body igglbn314.82 kgJemark Quezada Other [employer] Other 09-17-2023 09:40-0400Body adfwew662.88 cmPamelbrodie Yi Other [employer] Other 09-17-2023 09:40-0400Body mass index (BMI) [Ratio] 52.48 kg/l3Ysxqkq Kassidy Other [employer] Other 09-17-2023 09:40-0400Body lfoakprzgbv11.4 [degF]Kelly Yi Other [employer] Other 09-17-2023 09:40-0400Body .54 kgPashimon Yi Other [employer] Other 09-17-2023 09:40-0400Diastolic blood gkxluydm99 mm[Hg] Kelly Yi Other [employer] Other 09-17-2023 09:40-0400Respiratory rate18 /minPashimon Yi Other [employer] Other 09-17-2023 09:40-0646ZyA6% (BldA) [Mass fraction]97 % Kelly Yi Other [employer] Other 09-17-2023 09:40-0400Systolic blood urjmetdk243 mm[Hg] Kelly Yi Other [employer] Other 02-20-2023 17:23-0500Body .4 cmVictoria Pal INFECTION CONTROL PREVENTIONIST.CLUTCH REBUILDER Work Phone: [facility]02-20-2023 17:23-0500Body ovnzxc543.53 kgVicjay Aguillon INFECTION CONTROL PREVENTIONIST.CLUTCH REBUILDER Work Phone: [facility]02-20-2023 17:23-0500Diastolic blood uofeavug06 mm[Hg]Natalia Aguillon INFECTION CONTROL PREVENTIONIST.CLUTCH REBUILDER Work Phone: [facility]02-20-2023 17:23-0500Heart rate89 /min Natalia Aguillon INFECTION CONTROL PREVENTIONIST.CLUTCH REBUILDER Work Phone: [facility]02-20-2023 17:23-6098FyX5% (BldA) [Mass fraction]96 %Natalia Pal INFECTION CONTROL PREVENTIONIST.CLUTCH REBUILDER Work Phone: [facility]02-20-2023 17:23-0500Systolic blood yuofzycy856 mm[Hg]Natalia Pal INFECTION CONTROL PREVENTIONIST.CLUTCH REBUILDER Work Phone: [facility]11-17-2022 14:06-0500Body qigcqq096.81 kgVicjay Aguillon INFECTION CONTROL PREVENTIONIST.CLUTCH REBUILDER Work Phone: [facility]11-17-2022 14:06-0500Diastolic blood hivuwjon45 mm[Hg]Natalia Aguillon INFECTION CONTROL PREVENTIONIST.CLUTCH REBUILDER Work Phone: [facility]11-17-2022 14:06-0500Heart rate72 /min Natalia Pal INFECTION CONTROL PREVENTIONIST.CLUTCH REBUILDER Work Phone: [facility]11-17-2022 14:06-8088UcM0% (BldA) [Mass fraction]96 %Natalia Pal INFECTION CONTROL PREVENTIONIST.CLUTCH REBUILDER Work Phone: [facility]11-17-2022 14:06-0500Systolic blood iqeiuhph461 mm[Hg]Natalia Aguillon INFECTION CONTROL PREVENTIONIST.CLUTCH REBUILDER Work Phone: [facility]08-17-2022 09:04-0400Body niistf011.4 cmVictoria Pal INFECTION CONTROL PREVENTIONIST.CLUTCH REBUILDER Work Phone: [facility]08-17-2022 09:04-0400Body uzxxie357.55 kgNatalia Aguillon INFECTION CONTROL PREVENTIONIST.CLUTCH REBUILDER Work Phone: [facility]08-17-2022 09:04-0400Diastolic blood vqwflbtu22 mm[Hg]Natalia Aguillon INFECTION CONTROL PREVENTIONIST.CLUTCH REBUILDER Work Phone: [facility]08-17-2022 09:04-0400Heart rate74 /min Natalia Aguillon INFECTION CONTROL PREVENTIONIST.CLUTCH REBUILDER Work Phone: [facility]08-17-2022 09:04-9293VmN4% (BldA) [Mass fraction]96 %Natalia Aguillon INFECTION CONTROL PREVENTIONIST.CLUTCH REBUILDER Work Phone: [facility]08-17-2022 09:04-0400Systolic blood gijgzwvu294 mm[Hg]Natalia Aguillon APRN.CLUTCH REBUILDER Work Phone: [facility]06-01-2022 08:43-0400Body scaclo498.4 cmTarsha [facility]06-01-2022 08:43-0400Body .81 kg [facility]ha [facility]05-25-2022 14:35-0400Blood Pressure LocationHuan Cowan [facility]05-25-2022 14:35-0400 Diastolic blood ssukmdjf31 mm[Hg]Huan Cowan [facility]05-25-2022 14:35-0400Heart rate86 /Vijaya Cowan [facility]05-25-2022 14:35-0400 Respiratory rate19 /Vijaya Cowan [facility]05-25-2022 14:35-3074LuW0% (BldA) [Mass fraction]95 %Huan Cowan [facility]05-25-2022 14:35-0400 Systolic blood kvpaihgd299 mm[Hg]Huan Cowan [address] [place], [place] 3831305-25-2022 13:35-0400Blood Pressure LocationHuan Cowan [address] [place], [place] 3831305-25-2022 13:35-0400 Diastolic blood qvrxljno47 mm[Hg]Huan Cowan [address] [place], [place] 1470905-25-2022 13:35-0400 Systolic blood jeonvjrb161 mm[Hg]Huan Cowan [address] [place], [place] 1470905-25-2022 12:39-0400Blood Pressure LocationHuan Cowan [address]05-25-2022 12:39-0400 Diastolic blood omspjhxw21 mm[Hg]Huan Cowan [address] [place], [place] 1470905-25-2022 12:39-0400Heart rate87 /Vijaya Cowan [address] [place], [place] 1470905-25-2022 12:39-0400 Respiratory rate18 /Vijaya Cowan [address] [place], [place] 1470905-25-2022 12:39-5611FkH2% (BldA) [Mass fraction]95 %Huan Cowan [address] [place], [place] 1470905-25-2022 12:39-0400 Systolic blood hadybkil82 mm[Hg]Huan Cowan [address]05-25-2022 11:25-0400Body qasrpmrucke96.7 [degF]Huan Cowan [address] [place], [place] 1470905-25-2022 11:25-0400Heart rate73 /Vijaya Cowan [address] [place], [place] 1470905-25-2022 11:25-0400Mean blood ajnxcgqn67 mm[Hg]Huan Cowan [address]05-25-2022 11:25-0400 Respiratory rate20 /Vijaya Cowan [address] [place], [place] 1470905-25-2022 11:25-5020LpZ6% (BldA) [Mass fraction]96 %Huan Cowan [address] [place], [place] 1470905-25-2022 11:20-0400Body xarfdpzbslh36.34 [degF]Huan Cowan [address] [place], [place] 1470905-25-2022 11:20-0400 Respiratory rate14 /Vijaya Cowan [address] [place], [place] 1470905-25-2022 11:10-0400 Respiratory rate16 /Vijaya Cowan [address] [place], [place] 1470905-25-2022 11:05-0400 Respiratory rate16 /Vijaya Cowan [address] [place], [place] 1470905-25-2022 10:51-0400Body ihvtpiikmws14.34 [degF]Huan Cowan [address]05-25-2022 05:51-0400Mean blood svinfxwu679 mm[Hg]Huan Cowan [address] [place], [place] 1470905-25-2022 05:51-0400Heart rate78 /Vijaya Cowan [address] [place], [place] 1470905-25-2022 05:48-0400Body dcfaouinmyd03.24 [degF]Huan Cowan [address] [place], [place] 1470905-25-2022 05:48-0400Mean blood uosdntgt50 mm[Hg]Huan Cowan [address] [place], [place] 1470905-17-2022 13:00-0400Body .3 Saturnino Murphy MD Work Phone: [facility]05-17-2022 13:00-0400Body .81 kgAnh Murphy MD Work Phone: [facility]05-17-2022 13:00-0400Diastolic blood uouxyawr76 mm[Hg]Anh Murphy MD Work Phone: [facility]05-17-2022 13:00-0400Heart rate67 /min Anh Murphy MD Work Phone: [facility]05-17-2022 13:00-0400Respiratory rate 16 /minAnh Murphy MD Work Phone: [place] [address]-17-2022 13:00-8445ZmG0% (BldA) [Mass fraction]96 %Anh Murphy MD Work Phone: [place] [address]-17-2022 13:00-0400Systolic blood sszxduoi958 mm[Hg]Anh Murphy MD Work Phone: [facility]05-12-2022 09:30-0400Body leejob177.4 cmVictoria Pal INFECTION CONTROL PREVENTIONIST.CLUTCH REBUILDER Work Phone: [facility]05-12-2022 09:30-0400Body qdpkgu616.62 kgNatalia Aguillon INFECTION CONTROL PREVENTIONIST.CLUTCH REBUILDER Work Phone: [facility]05-12-2022 09:30-0400Diastolic blood rthmzoua66 mm[Hg]Natalia Aguillon APRN.CLUTCH REBUILDER Work Phone: [facility]05-12-2022 09:30-0400Heart rate73 /min Natalia Aguillon APRN.CLUTCH REBUILDER Work Phone: [place] [address]-12-2022 09:30-5703XqJ3% (BldA) [Mass fraction]98 %Natalia Aguillon APRN.CLUTCH REBUILDER Work Phone: [place] [address]-12-2022 09:30-0400Systolic blood edzmgcdu822 mm[Hg]Natalia Aguillon APRN.CLUTCH REBUILDER Work Phone: [facility]05-10-2022 09:26-0400Blood Pressure LocationHuan Cowan [facility]05-10-2022 09:26-0400 BP/Pulse Patient PositionHuan Cowan [address] [place], [place] 3831305-10-2022 09:26-0400 Diastolic blood zovquxku57 mm[Hg]Huan Cowan [address] [place], [place] 3831305-10-2022 09:26-0400Heart rate65 /minHuan Cowan [address] [place], [place] 3831305-10-2022 09:26-0400Mean blood mm[Hg]Huan Cowan [address] [place], [place] 3831305-10-2022 09:26-0400 Respiratory rate20 /Vijaya Cowan [address] [place], [place] 3831305-10-2022 09:26-0054EpG2% (BldA) [Mass fraction]97 %Huan Cowan [address] [place], [place] 3831305-10-2022 09:26-0400 Systolic blood linusfnf367 mm[Hg]Huan Cowan [address] [place], [place] 3831305-02-2022 12:15-0400 Diastolic blood ssnfdiiz19 mm[Hg]Jayy Patel MD Work Phone: [facility]05-02-2022 12:15-0400Heart rate79 /min Jayy Patel MD Work Phone: [facility]05-02-2022 12:15-6285BcZ6% (BldA) [Mass fraction]95 %Jayy Patel MD Work Phone: [facility]05-02-2022 12:15-0400Systolic blood mrdjhyre019 mm[Hg]Jayy Patel MD Work Phone: [facility]05-02-2022 11:45-0400Body temperature 97.3 [degF]Jayy Patel MD Work Phone: [facility]05-02-2022 09:25-0400Respiratory rate 18 /Yareli Patel MD Work Phone: [facility]04-27-2022 13:36-0400Body lzxand105.4 cmPacc [place] [address]-27-2022 13:36-0400Body yqmpnn377.35 kgPacc [facility]04-26-2022 09:10-0400Body aqaaeg207.4 cmVictoria Amaliaagnes INFECTION CONTROL PREVENTIONIST.CLUTCH REBUILDER Work Phone: [facility]04-26-2022 09:10-0400Body enawgt549.35 kgEmirjulee Aguillon INFECTION CONTROL PREVENTIONIST.CLUTCH REBUILDER Work Phone: [facility]04-26-2022 09:10-0400Diastolic blood tpqyqdls01 mm[Hg]Natalia Amaliaagnes LOO.CLUTCH REBUILDER Work Phone: [facility]04-26-2022 09:10-0400Heart rate88 /min Natalia Amaliaagnes LOO.CLUTCH REBUILDER Work Phone: [facility]04-26-2022 09:10-3499FgI2% (BldA) [Mass fraction]98 %Natalia Aguillon EZE.CLUTCH REBUILDER Work Phone: [facility]04-26-2022 09:10-0400Systolic blood vaakvrpe708 mm[Hg]Natalia Pal EZE.CLUTCH REBUILDER Work Phone: [facility]05-04-2021 09:45-9453LqL4% (BldA) [Mass fraction]93 %Santo Huynh [facility] Work Phone: 1(723) 789-661205-04-2021 07:14-0400Body ixrbjzunmuq48.2 [degF] Santo Amina [facility] Work Phone: 1(807) 752-182305-04-2021 07:14-0400Diastolic blood lwzevktw81 mm[Hg] Santo Amina [facility] Work Phone: 1(929) 771-580605-04-2021 07:14-0400Heart rate93 /minSanto Amina [facility] Work Phone: 1(326) 391-936405-04-2021 07:14-0400Respiratory rate20 /minSanto Huynh [facility] Work Phone: 1(856) 174-357305-04-2021 07:14-0400Systolic blood kjdksnat978 mm[Hg] Santo Huynh [facility] Work Phone: 1(590) 231-121505-03-2021 14:54-0400Body tzdvuj467.4 cmRkerry Huynh [facility] Work Phone: 1(770) 118-279405-03-2021 14:54-0400Body mass index (BMI) [Ratio] 51.72 kg/a4SdvhtjySanto Huynh [facility] Work Phone: 1(531) 497-997105-03-2021 14:54-0400Body dpleax211.81 kgSanto Huynh [facility] Work Phone: Encounters Encounter DateEncounter TypeCare ProviderFacilityStart: 39-62-5619wjqnrxyurcOVPOhioHealth Riverside Methodist Hospitaltart: 94-04-2909eztymfantmKMD [facility]tart: 12-09-2024 End: 03-52-9579kxnfpwfnzxCSHGXCZChildren's Hospital of Columbustart: 12-09-2024 End: 58-16-5296gfwdgyvcldWOUBFAJChildren's Hospital of Columbustart: 93-27-0744mppiqfphsaJMHFQAMUniversity Hospitals Elyria Medical Centertart: 11-12-2024 End: 57-81-6238plviliuxcbMAFCEVE [facility] Hospitaltart: 11-12-2024 End: 80-27-4898wezruuzqmmRBMYJRLUniversity Hospitals Elyria Medical Centertart: 11-09-2024 End: 12-70-4090twpuqlpfhfTpnstct M Hoy MD Work Phone: [facility] Work Phone: Start: 11-09-2024 End: 67-02-6497Tyumjck encounter procedureSkhari Russell MD-[facility] Work Phone: Start: 10-21-2024 End: 72-57-2890cqulbsfjluAIOXVOH [facility] Hospitaltart: 09-25-2024 End: 34-46-4889pdtrjwnuzoDHIC [facility]art: 07-14-2024 End: 62-75-0264Aethhyd encounter procedureHuan Cowan DO Work Phone: [facility] SWS ORTHOAOComment on above:History of total shoulder replacement, left (Primary Dx)Start: 07-14-2024 End: 86-19-9584lahofxbgwqZAIAC A BROWNNot AvailableStart: 07-14-2024 End: 06-78-3663Lzlomb flowsAnusha Cowan DO Work Phone: [facility] SWS ORTHOAOStart: 07-14-2024 End: 36-86-7804Rhfudicaro Cowan DO Work Phone: [facility] SWS ORTHOAOStart: 07-08-2024 End: 56-67-5077gxpbugrjbhEOXO [facility] Hospitaltart: 92-89-8251Nugvwvqfir and management of inpatientPAUL [facility] Hospitaltart: 41-70-4319Upxcoguyqt and management of inpatientSAMER J [facility] Hospitaltart: 82-35-8832Imiglosysp and management of inpatientBABAR [facility]tart: 06-25-2024 End: 74-14-2651Qudakoovfd and management of inpatientSARMED [facility] Shawtart: 06-22-2024 End: 44-90-3433ahquboaclgTguhgsh Vytautas Gieditis Facility:EVAN Rodríguez Start: 05-27-2024 End: 80-78-2997Qqqgitksff hospital visit by physician[address]Comment on above:Left shoulder pain, unspecified chronicity; History of left shoulder replacementStart: 05-27-2024 End: 30-56-1992dnadecrzkgHFVELEKSelect Medical Specialty Hospital - [facility] Northtart: 05-12-2024 End: 85-52-6620Qailmc outpatient new 45 minutesKevin Garsia MD Work Phone: [facility] HospitalComment on above: Left shoulder pain, unspecified chronicity (Primary Dx); History of left shoulder replacementStart: 05-12-2024 End: 12-13-1812Ajrdbckjvo hospital [facility] by [facility] [place] Ybxm5743v X-Ray 3Asp[facility] Lang[facility]ade HospitalComment on above:Left shoulder pain, unspecified chronicityStart: 05-12-2024 End: 61-93-6721lyiopyvrnuHWCWFYYSelect Medical Specialty Hospital - [facility] Northtart: 04-27-2024 End: 94-08-9740jkrgbahxzdCAQX [facility] Hospitaltart: 04-20-2024 End: 65-74-3502iwrfjxblikOHDTA ENTEZARIFacility:[facility]tart: 04-20-2024 End: 58-09-2147Olcnyeg encounter procedureVapauline Salgado MD Work Phone: OrthopaedicsComment on above:Nontraumatic tear of left rotator cuff, unspecified tear extent (Primary Dx); Infection of prosthetic joint, initial encounter (HCC); Elevated glucoseStart: 04-20-2024 End: 36-22-8813fepczzgfqkOFRAK ENTEZARIFacility:[facility] Hospitaltart: 04-20-2024 End: 54-75-9035Utvfzkfwew hospital visit by physicianXr Main L12UjcvdgmerMvaifxc on above:Left shoulder pain, unspecified chronicity [M25.512]Start: 04-17-2024 Non-patient / Non-visitDemetrius Bernal MD Work Phone: [facility] Work Phone: Start: 04-17-2024 End: 78-10-7586Hlbgwjinr to same day surgery centerDemetrius Bernal MD Work Phone: [facility] Work Phone: Start: 04-17-2024 End: 73-51-5002zrumrxluhlNqjumnn M Hoy MD Work Phone: [facility] Work Phone: Start: 03-19-2024 End: 63-07-2013tbuidvyhdnLSNWH A BROWNNot AvailableStart: 03-19-2024 End: 19-54-2999Layoav flowsheetHuan A Brown DO Work Phone: [facility] ORTHOStart: 03-19-2024 End: 46-39-5893Ouctmq flowsheetHuan Cowan DO Work Phone: [facility] ORTHOStart: 35-79-4658Bxs-patient / Non-visit Demetrius Bernal MD Work Phone: [facility] G[facility] Work Phone: Start: 03-13-2024 End: 92-72-8358Uqvfazhnn to same day surgery centerDemetrius Bernal MD Work Phone: [facility] Work Phone: Start: 03-13-2024 End: 35-89-7287rgoejjlkftZvpghay M HoyFacility:[facility] Start: 02-25-2024 End: 31-04-8168bxtrjknidaNGEDBRCCleveland Clinic Marymount Hospitaltart: 02-04-2024 End: 51-04-1541Ccvmcn Olya Cowan DO Work Phone: [facility] ORTHOStart: 02-04-2024 End: 84-76-5464Bjwqxn flowsAnusha Calloway Brown DO Work Phone: [facility] ORTHOStart: 02-04-2024 End: 24-12-5483Hisdebn encounter procedureHuan Cowan DO Work Phone: [facility] NB ORTHOComment on above:Acute pain of left shoulder (Primary Dx)Start: 02-04-2024 End: 01-65-9966eaoqedehssILMXF A BROWNNot AvailableStart: 48-46-2495Ith-patient / Non-visitDemetrius Bernal MD Work Phone: [facility] Work Phone: Start: 11-25-2023 End: 15-25-4360zwxaurwljlXsjcdom Vytautas Giedraitis MDFacility:[facility] [place] Start: 11-11-2023 End: 53-31-8365eupxelhihtVewkzsu Vytautas Giedraitis MDFacility:[facility] [place] Start: 09-26-2023 End: 76-51-0297tkzjwbhefuXNGXKCL HOYFacility:[facility]tart: 09-16-2023 End: 14-61-6714snumcjvekhCtgjhep Vytautas Giedraitis MDFacility:[facility] Start: 08-06-2023 End: 60-99-9546jsmyygniykEYERH A BROWNNot AvailableStart: 06-11-2023 End: 60-72-1107Xkxfjhf encounter procedureNorth [facility] Neurosurgery Work Phone: start: 56-65-4189wunfjkrivuVcfo L SchwabFacility:FT [place]vueStart: 04-11-2023 End: 32-98-3853ejflsdjvsqJsopobc Springer Other [employer] Other start: 15-91-3881Piuluq outpatient visit 15 minutes Siri QuezadaVanderbilt [facility] Hospital NeurosurgeryStart: 03-07-2023 End: 65-96-9897iujyswrwxeShshq A BrownFacility:FTMCStart: 03-07-2023 End: 08-42-6344wgvyobezciTE-Krissy Aguillon Work Phone: [facility] Work Phone: Start: 03-07-2023 End: 68-78-2878Nkqcacto ReferredNP-Krissy Aguillon Work Phone: [facility] Main [place] Work Phone: Start: 03-07-2023 End: 17-96-1246Ewmcpqz encounter procedureHuan Calloway Yung [facility] Start: 02-26-2023 End: 72-41-9873xqirtcefdqLbagt A BrownFacility:FTMCStart: 02-26-2023 End: 85-71-0216Ehnvcxa encounter procedureHuan Calloway Yung [facility] Start: 02-25-2023 End: 57-12-8915nkxzkrrrexMypwi A BrownFacility:FTMCStart: 02-25-2023 End: 21-19-6544Pzdhdkg encounter procedureHuan Calloway Yung [facility] Start: 17-97-2552Owlmbslils RecurringNP-C Natalia Aguillon Work Phone: [facility]Weight [facility] Work Phone: Start: 02-04-2023 End: 07-36-5856wdinxepriuLzxuuzt Scally Other [employer] Other Start: 15-43-6216Afroabtrb therapyBradley Hospital Coordinated Care ClinicStart: 77-76-9092svgptmwsrzGdrp Yolanda Facility:FT [place]vueStart: 64-66-1785Hduumn outpatient new 45 minutesJessica [facility] NeurosurgeryStart: 01-17-2023 End: 66-98-6354zxqahxxkdrFN-C Natalia Aguillon Work Phone: [facility] Work Phone: Start: 01-17-2023 End: 24-37-2851Ppyguer encounter procedureNP-C Natalia Aguillon Work Phone: [facility]XRay Main [place] Work Phone: Start: 01-17-2023 End: 71-54-3651rgiuxyxfwrIT-C Natalia Aguillon Work Phone: [facility] Work Phone: Start: 01-17-2023 End: 77-60-4794Fuyxfkp encounter procedureNP-C Natalia Aguillon Work Phone: [facility] Work Phone: Start: 01-09-2023 End: 15-14-5922pupegruqwzUagy L SchwabFacility:FT FM BellevueStart: 12-16-2022 End: 67-77-5919xpvyeheawuQflwis Dymond Other [employer] Other Start: 66-08-7059Qyvxfe outpatient new 20 minutes Kellyniurka YiFPG Urgent Care ClydeStart: 12-16-2022 End: 82-61-0829Ynbamyk encounter procedureNP-C Natalia Aguillon Work Phone: [facility] [place] Work Phone: Start: 78-30-6745KjvaidTjsisafkHenrik Aguillon APRN.CNP Work Phone: [facility] Medicine [place]ainComment on above:Refill RequestStart: 10-52-1852NihnxyNhk ProviderInternal Medicine LorainComment on above:Refill RequestStart: 00-01-5958JrnrumKtwpzjib Shehan APRN.CNP Work Phone: Internal Medicine [place]ainComment on above:Refill RequestStart: 68-10-1390Dquespnny encounterNatalia Aguillon APRN.CNP Work Phone: Internal Medicine [place]ainComment on above:ResultsStart: 46-60-4946ihpawxtcraJFSBJVEJ SHEHANFacility:[facility] HospitalStart: 05-21-2022 End: 19-05-9319Gefozmn encounter Fbaien Aguillon APRN.CNP Work Phone: Internal Medicine [place]ainComment on above:Morbid obesity with BMI of 50.0-59.9, adult (HCC) (Primary Dx); Vitamin D deficiency; Essential hypertension; Mixed hyperlipidemia; Impaired fasting blood sugar; Chronic pain due to trauma; Proteinuria, unspecified typeStart: 04-20-2022 End: 35-75-9873uzthquujfsUR KINGSLEY Ro [facility] Hospitalcility:T7Htevl: 08-24-2436scrgumwjdclisandra Aguillon APRN.CNP Work Phone: Internal Medicine [place]ainComment on above:PHMA/Care Gap Outreach (BP)Start: 02-15-2022 End: 55-82-7071Wwstbgw encounter Fabien Aguillon APRN.CNP Work Phone: Internal Medicine [place]ainComment on above:Morbid obesity with BMI of 50.0-59.9, adult (HCC) (Primary Dx); Essential hypertension; Mixed hyperlipidemia; Lung nodules; Chronic pain due to trauma; History of colon polyps; S/P shoulder replacement, left; Obstructive sleep apnea syndrome; Fatty liver; Impaired fasting blood sugarStart: 56-92-5724ubibaexuwnSvuuhnxrRayray Aguillon APRN.CNP Work Phone: Internal Medicine [place]ainComment on above:BLOOD PRESSUREStart: 71-03-8866H-mail encounter from Tangela Aguillon APRN.CNP Work Phone: AMHERSTStart: 01-02-2022 End: 49-19-9031Kpujnrd encounter Chris Cowan [facility] Start: 24-53-7649FK Get Medical AdviceCcf Provider Internal Medicine LorainComment on above:Lisinopril refillStart: 11-15-2021 End: 92-80-4003Hivrzhu encounter Fabien Aguillon APRN.CNP Work Phone: Internal Medicine [place]ainComment on above:Morbid obesity with BMI of 50.0-59.9, adult (HCC); Mixed hyperlipidemia; Essential hypertension; Arthralgia of multiple sites; Prediabetes; Obstructive sleep apnea syndrome; Abnormal weight gain; Fatty metamorphosis of liverStart: 94-29-9448Jhtjrrbwt encounterBecca Boateng PSSEndocrinologyComment on above:ENDO WEIGHT MGMT - PSYCHStart: 09-27-2021 ambulatoryAnh Murphy MD Work Phone: EndocrinologyComment on above:Metformin prescription Start: 03-11-9428proofrhkopYxfvi Gedling RDMSRadiologyComment on above:Radiology USStart: 09-19-2021 End: 20-03-3577Btizwwy encounter procedureJulie Gedling RDMSCCF [place] [facility] Comment on above:SOB (shortness of breath) on exertionStart: 09-19-2021 End: 52-70-7999Jkbsoacuxb hospital visit by physicianUs [facility] LoraRadiologyComment on above:Elevated liver enzymes [R74.8]Stenosis of carotid artery, unspecified laterality [I65.29]Start: 09-18-2021 End: 98-56-0120Zqlwwqlcqr hospital visit by physicianCt [facility] HospitalRAD CT SCAN [facility] HOSPComment on above:Lung nodules [R91.8]Start: 09-13-2021 Telephone encounterAnh Murphy MD Work Phone: EndocrinologyComment on above:AppointmentStart: 09-13-2021 End: 06-55-6772eptkogoqxpFjkveu Polanco Santos MD Work Phone: EndocrinologyComment on above:Morbid obesity with BMI of 50.0-59.9, adult (HCC) (Primary Dx); Prediabetes; Fatty metamorphosis of liver; Essential hypertension; Mixed hyperlipidemiaStart: 09-13-2021 End: 18-72-6578Uopwbdtuytjp consultation with Corinne Murphy MD Work Phone: REM PIEDRA MCStart: 08-30-2021 End: 05-36-2687nzuhbyqrygFkbtqft Culbertson RDNutrition TherapyComment on above: Morbid obesity with BMI of 50.0-59.9, adult (HCC); Mixed hyperlipidemia; Essential hypertension; Arthralgia of multiple sites; Prediabetes; Obstructive sleep apnea syndrome; Abnormal weight gain; Fatty metamorphosis of liverStart: 08-30-2021 End: 61-24-6886Auuurytwqssq consultation with Logan PIEDRA MCStart: 08-23-2021 End: 50-84-5518Gyhqrmgcc to same day surgery fairacresHuan Cowan [facility] Start: 08-15-2021 End: 57-28-1048Vhqwgws encounter procedureAnh Murphy MD Work Phone: EndocrinologyComment on above:Morbid obesity with BMI of 50.0-59.9, adult (HCC) (Primary Dx); Mixed hyperlipidemia; Essential hypertension; Arthralgia of multiple sites; Prediabetes; Obstructive sleep apnea syndrome; Abnormal weight gain; Fatty metamorphosis of liverStart: 08-10-2021 End: 12-67-5039Jzkkwbj encounter procedureNatalia Aguillon APRN.CNP Work Phone: Internal Medicine [place]ainComment on above:Routine physical examination (Primary Dx); Mixed hyperlipidemia; Morbid obesity with BMI of 50.0-59.9, adult (HCC); Elevated liver enzymes; Stenosis of carotid artery, unspecified laterality; SOB (shortness of breath) on exertion; Essential hypertension; Lung nodules; Environmental allergies; Chronic pain after traumatic injury; Impaired fasting blood sugarStart: 08-10-2021 End: 70-41-9362Wltrzhly examinationVicjay Aguillon APRN.CNP Work Phone: Internal Medicine [place]Start: 08-08-2021 End: 31-03-4756Dcuuefy encounter procedureHuan Cowan [facility] Start: 07-31-2021 End: 22-51-2828Ywyvqhjwbj hospital visit by Eryn Patel MD Work Phone: [facility] EndoscopyComment on above:Dark stools [R19.5]Start: 07-26-2021 End: 35-10-5537Aseneinpf to [facility] 1 VirtualGO[facility]LDG 1Start: 07-26-2021 End: 07-94-6177cfuoktysafLedy VirtualPre AnesthesiaComment on above:Pre-op evaluation (Primary Dx); Screen for colon cancer; Essential hypertension; Mixed hyperlipidemia; Obstructive sleep apnea syndrome; Shortness of breath; Lung nodules; Morbid obesity with BMI of 50.0-59.9, adult ([facility])Start: 07-26-2021 End: 00-53-2952Mpmngvqjgtulx examination donePennsylvania HospitalPre AnesthesiaStart: 04-52-6551Habxoevsg encounterVictorjulee Aguillon APRN.CNP Work Phone: Internal Medicine [place]ainComment on above:Medication ProblemStart: 07-25-2021 End: 25-27-3994Uruuobr encounter procedureVicjay Aguillon APRN.CNP Work Phone: Internal Medicine [place]Comment on above:Essential hypertension (Primary Dx); Mild persistent asthma without complication; Screening for colon cancer; Bowel habit changes; Dark stools; Morbid obesity with BMI of 50.0-59.9, adult ([facility])Start: 94-00-5766jkodsfkihf Natalia Aguillon APRN.CNP Work Phone: Internal Medicine [place]Comment on above:PHMA/Care Gap Outreach (BP, colo)Start: 02-13-2021 End: 73-50-0670Cptwfhrchz hospital visit by physicianKatarina [facility] Sabi Work Phone: RadiologyComment on above:Lung nodules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 CREATED AUTHOR AUTHOR'S ORGANIZ ATION 06/27/2024 [facility] DATE CREATED AUTHOR AUTHOR'S ORGANIZ ATION 07/16/2024 [facility] DATE CREATED AUTHOR AUTHOR'S ORGANIZ ATION 07/17/2024 [facility] DATE CREATED AUTHOR AUTHOR'S ORGANIZ ATION 02/07/2025 [facility] Source Comments (unrecognize d section and content) In the event this informatio n is protected by the Federal Confidentiality of Alcohol and Drug Abuse Patient Records regulations: The Federal rules restrict any use of the information to criminally investigate or prosecute any alcohol or drug abuse patient.[facility] CenterIn the event this information is protected by the Federal Confidentiality of Alcohol and Drug Abuse Patient Records regulations: The Federal rules restrict any use of the information to criminally investigate or prosecute any alcohol or drug abuse patient.[facility] CenterIn the event this information is protected by the Federal Confidentiality of Alcohol and Drug Abuse Patient Records regulations: The Federal rules restrict any use of the information to criminally investigate or prosecute any alcohol or drug abuse patient.[facility] CenterIn the event this information is protected by the Federal Confidentiality of Alcohol and Drug Abuse Patient Records regulations: The Federal rules restrict any use of the information to criminally investigate or prosecute any alcohol or drug abuse patient.[facility] CenterIn the event this information is protected by the Federal Confidentiality of Alcohol and Drug Abuse Patient Records regulations: The Federal rules restrict any use of the information to criminally investigate or prosecute any alcohol or drug abuse patient.[facility] CenterIn the event this information is protected by the Federal Confidentiality of Alcohol and Drug Abuse Patient Records regulations: The Federal rules restrict any use of the information to criminally investigate or prosecute any alcohol or drug abuse patient.[facility] CenterIn the event this information is protected by the Federal Confidentiality of Alcohol and Drug Abuse Patient Records regulations: The Federal rules restrict any use of the information to criminally investigate or prosecute any alcohol or drug abuse patient.[facility] CenterIn the event this information is protected by the Federal Confidentiality of Alcohol and Drug Abuse Patient Records regulations: The Federal rules restrict any use of the information to criminally investigate or prosecute any alcohol or drug abuse patient.[facility] CenterIn the event this information is protected by the Federal Confidentiality of Alcohol and Drug Abuse Patient Records regulations: The Federal rules restrict any use of the information to criminally investigate or prosecute any alcohol or drug abuse patient.[facility] CenterIn the event this information is protected by the Federal Confidentiality of Alcohol and Drug Abuse Patient Records regulations: The Federal rules restrict any use of the information to criminally investigate or prosecute any alcohol or drug abuse patient.[facility] CenterIn the event this information is protected by the Federal Confidentiality of Alcohol and Drug Abuse Patient Records regulations: The Federal rules restrict any use of the information to criminally investigate or prosecute any alcohol or drug abuse patient.[facility] CenterIn the event this information is protected by the Federal Confidentiality of Alcohol and Drug Abuse Patient Records regulations: The Federal rules restrict any use of the information to criminally investigate or prosecute any alcohol or drug abuse patient.[facility] CenterIn the event this information is protected by the Federal Confidentiality of Alcohol and Drug Abuse Patient Records regulations: The Federal rules restrict any use of the information to criminally investigate or prosecute any alcohol or drug abuse patient.[facility] CenterIn the event this information is protected by the Federal Confidentiality of Alcohol and Drug Abuse Patient Records regulations: The Federal rules restrict any use of the information to criminally investigate or prosecute any alcohol or drug abuse patient.[facility] CenterIn the event this information is protected by the Federal Confidentiality of Alcohol and Drug Abuse Patient Records regulations: The Federal rules restrict any use of the information to criminally investigate or prosecute any alcohol or drug abuse patient.[facility] CenterIn the event this information is protected by the Federal Confidentiality of Alcohol and Drug Abuse Patient Records regulations: The Federal rules restrict any use of the information to criminally investigate or prosecute any alcohol or drug abuse patient.[facility] CenterIn the event this information is protected by the Federal Confidentiality of Alcohol and Drug Abuse Patient Records regulations: The Federal rules restrict any use of the information to criminally investigate or prosecute any alcohol or drug abuse patient.[facility] CenterIn the event this information is protected by the Federal Confidentiality of Alcohol and Drug Abuse Patient Records regulations: The Federal rules restrict any use of the information to criminally investigate or prosecute any alcohol or drug abuse patient.[facility] CenterIn the event this information is protected by the Federal Confidentiality of Alcohol and Drug Abuse Patient Records regulations: The Federal rules restrict any use of the information to criminally investigate or prosecute any alcohol or drug abuse patient.[facility] CenterIn the event this information is protected by the Federal Confidentiality of Alcohol and Drug Abuse Patient Records regulations: The Federal rules restrict any use of the information to criminally investigate or prosecute any alcohol or drug abuse patient.[facility] CenterIn the event this information is protected by the Federal Confidentiality of Alcohol and Drug Abuse Patient Records regulations: The Federal rules restrict any use of the information to criminally investigate or prosecute any alcohol or drug abuse patient.[facility] CenterIn the event this information is protected by the Federal Confidentiality of Alcohol and Drug Abuse Patient Records regulations: The Federal rules restrict any use of the information to criminally investigate or prosecute any alcohol or drug abuse patient.[facility] CenterIn the event this information is protected by the Federal Confidentiality of Alcohol and Drug Abuse Patient Records regulations: The Federal rules restrict any use of the information to criminally investigate or prosecute any alcohol or drug abuse patient.[facility] CenterIn the event this information is protected by the Federal Confidentiality of Alcohol and Drug Abuse Patient Records regulations: The Federal rules restrict any use of the information to criminally investigate or prosecute any alcohol or drug abuse patient.[facility] CenterIn the event this information is protected by the Federal Confidentiality of Alcohol and Drug Abuse Patient Records regulations: The Federal rules restrict any use of the information to criminally investigate or prosecute any alcohol or drug abuse patient.[facility] CenterIn the event this information is protected by the Federal Confidentiality of Alcohol and Drug Abuse Patient Records regulations: The Federal rules restrict any use of the information to criminally investigate or prosecute any alcohol or drug abuse patient.[facility] CenterIn the event this information is protected by the Federal Confidentiality of Alcohol and Drug Abuse Patient Records regulations: The Federal rules restrict any use of the information to criminally investigate or prosecute any alcohol or drug abuse patient.[facility] CenterIn the event this information is protected by the Federal Confidentiality of Alcohol and Drug Abuse Patient Records regulations: The Federal rules restrict any use of the information to criminally investigate or prosecute any alcohol or drug abuse patient.[facility] CenterIn the event this information is protected by the Federal Confidentiality of Alcohol and Drug Abuse Patient Records regulations: The Federal rules restrict any use of the information to criminally investigate or prosecute any alcohol or drug abuse patient.[facility] CenterIn the event this information is protected by the Federal Confidentiality of Alcohol and Drug Abuse Patient Records regulations: The Federal rules restrict any use of the information to criminally investigate or prosecute any alcohol or drug abuse patient.[facility] CenterIn the event this information is protected by the Federal Confidentiality of Alcohol and Drug Abuse Patient Records regulations: The Federal rules restrict any use of the information to criminally investigate or prosecute any alcohol or drug abuse patient.[facility] CenterIn the event this information is protected by the Federal Confidentiality of Alcohol and Drug Abuse Patient Records regulations: The Federal rules restrict any use of the information to criminally investigate or prosecute any alcohol or drug abuse patient.[facility] CenterIn the event this information is protected by the Federal Confidentiality of Alcohol and Drug Abuse Patient Records regulations: The Federal rules restrict any use of the information to criminally investigate or prosecute any alcohol or drug abuse patient.[facility] CenterIn the event this information is protected by the Federal Confidentiality of Alcohol and Drug Abuse Patient Records regulations: The Federal rules restrict any use of the information to criminally investigate or prosecute any alcohol or drug abuse patient.[facility] Care Teams (unrecognized sec tion and content) Team Status: Active Member Role Status Dates Demetrius Bernal MD Primary Care Provider Active Team Status: Inactive Member Role Status Dates Demetrius Bernal MD Primary Care Provider Active Start: November 09, 2024 End: November 09, 2024Venancio Russell MDAttending ProviderActiveStart: November 09, 2024 End: November 09nithin Arroyo WORKFORCE MANAGEMENT COORDINATOR-CReferring ProviderActiveStart: November 09, 2024 End: November 09, 2024Team MemberRelationshipSpecialtyStart DateEnd Date [facility], INFECTION CONTROL PREVENTIONIST.CLUTCH REBUILDER [address] [place] [address] PCP - GeneralFamily Practice11/23/19Team MemberRelationshipSpecialtyStart DateEnd Date [facility], INFECTION CONTROL PREVENTIONIST.CLUTCH REBUILDER [address] [place] [address] PCP - GeneralFamily Practice11/23/19Team MemberRelationshipSpecialtyStart DateEnd Date [facility], INFECTION CONTROL PREVENTIONIST.CLUTCH REBUILDER [address] [place] [address] PCP - GeneralFamily Practice11/23/19Team MemberRelationshipSpecialtyStart DateEnd Date [facility], INFECTION CONTROL PREVENTIONIST.CLUTCH REBUILDER [address] [place] [address] PCP - GeneralFamily Practice11/23/19Team MemberRelationshipSpecialtyStart DateEnd Date [facility], INFECTION CONTROL PREVENTIONIST.CLUTCH REBUILDER [address] [place] [address] PCP - GeneralFamily Practice11/23/19Team MemberRelationshipSpecialtyStart DateEnd Date [facility], INFECTION CONTROL PREVENTIONIST.CLUTCH REBUILDER [address] [place] [address] PCP - GeneralFamily Practice11/23/19Team MemberRelationshipSpecialtyStart DateEnd Date [facility], INFECTION CONTROL PREVENTIONIST.CLUTCH REBUILDER [address] [facility] [address] PCP - GeneralFamily Practice11/23/19Team MemberRelationshipSpecialtyStart DateEnd Date [facility], INFECTION CONTROL PREVENTIONIST.CLUTCH REBUILDER [address] [facility] [address] PCP - GeneralFamily Practice11/23/19Team MemberRelationshipSpecialtyStart DateEnd Date [facility], INFECTION CONTROL PREVENTIONIST.CLUTCH REBUILDER [address] [place] [address] PCP - GeneralFamily Practice11/23/19Team MemberRelationshipSpecialtyStart DateEnd Date [facility], INFECTION CONTROL PREVENTIONIST.CLUTCH REBUILDER [address] [place] [address] PCP - GeneralFamily Practice20Team MemberRelationshipSpecialtyStart DateEnd Date [facility], INFECTION CONTROL PREVENTIONIST.CLUTCH REBUILDER [address] [place] [address] PCP - GeneralFamily Practice20Team MemberRelationshipSpecialtyStart DateEnd Date [facility], INFECTION CONTROL PREVENTIONIST.CLUTCH REBUILDER [address] [place] [address] PCP - GeneralFamily Practice820Team MemberRelationshipSpecialtyStart DateEnd Date [facility], INFECTION CONTROL PREVENTIONIST.CLUTCH REBUILDER [address] [place] [address] PCP - GeneralFamily Practice820Team MemberRelationshipSpecialtyStart DateEnd Date [facility], INFECTION CONTROL PREVENTIONIST.CLUTCH REBUILDER [address] [place] [address] PCP - GeneralFamily Practice820Team MemberRelationshipSpecialtyStart DateEnd Date [facility], INFECTION CONTROL PREVENTIONIST.CLUTCH REBUILDER [address] [facility] [place] [address] PCP - GeneralFamily Practice11/23/19Team MemberRelationshipSpecialtyStart DateEnd Date [facility], INFECTION CONTROL PREVENTIONIST.CLUTCH REBUILDER [address] [place] [address] PCP - GeneralFamily Medicine11/23/19Team MemberRelationshipSpecialtyStart DateEnd Date [facility], INFECTION CONTROL PREVENTIONIST.CLUTCH REBUILDER [address] [facility] [address] PCP - GeneralFamily Medicine11/23/19Team MemberRelationshipSpecialtyStart DateEnd Date [facility], INFECTION CONTROL PREVENTIONIST.CLUTCH REBUILDER [address] [place] [address] PCP - GeneralFamily Medicine20Team MemberRelationshipSpecialtyStart DateEnd Date [facility], INFECTION CONTROL PREVENTIONIST.CLUTCH REBUILDER [address] [facility] [address] PCP - GeneralFamily Medicine82420Team MemberRelationshipSpecialtyStart DateEnd Date [facility], INFECTION CONTROL PREVENTIONIST.CLUTCH REBUILDER [address] [place] [address] PCP - GeneralFamily Medicine11/23/19Team MemberRelationshipSpecialtyStart DateEnd Date [facility], INFECTION CONTROL PREVENTIONIST.CLUTCH REBUILDER [address] [place] [address] PCP - GeneralFamily Medicine11/23/19Team MemberRelationshipSpecialtyStart DateEnd Date [facility], INFECTION CONTROL PREVENTIONIST.CLUTCH REBUILDER [address] [place] [address] PCP - GeneralFamily Medicine11/23/19Team MemberRelationshipSpecialtyStart DateEnd Date [facility], INFECTION CONTROL PREVENTIONIST.CLUTCH REBUILDER [address] [place] [address] PCP - GeneralFamily Medicine11/23/19Team MemberRelationshipSpecialtyStart DateEnd Date [facility], INFECTION CONTROL PREVENTIONIST.CLUTCH REBUILDER [address] [place] [address] PCP - GeneralFamily Medicine11/23/19Team MemberRelationshipSpecialtyStart DateEnd Date [facility], INFECTION CONTROL PREVENTIONIST.CLUTCH REBUILDER [address] [place] [address] PCP - GeneralFamily Medicine11/23/19Team MemberRelationshipSpecialtyStart DateEnd Date [facility], INFECTION CONTROL PREVENTIONIST.CLUTCH REBUILDER [address] [place] [address] PCP - GeneralFamily Medicine2420Team MemberRelationshipSpecialtyStart DateEnd Date [facility], INFECTION CONTROL PREVENTIONIST.CLUTCH REBUILDER [address] [place] [address] PCP - GeneralFamily Medicine11/23/19 Team Status: Active Member Role Status Dates Vonnie Guerrero , WORKFORCE MANAGEMENT COORDINATOR-C Primary Care Provider Active Team Status: Inactive Member Role Status Dates Vonnie Guerrero , WORKFORCE MANAGEMENT COORDINATOR-C Primary Care Provider Active Siri Quezada , WORKFORCE MANAGEMENT COORDINATOR-CAttending ProviderActive Team Status: Inactive Member Role Status Dates Natalia Aguillon , WORKFORCE MANAGEMENT COORDINATOR-C Primary Care Provider Acti ve Kelly Yi , WORKFORCE MANAGEMENT COORDINATOR-CAttending ProviderActive Team Status: Inactive Member Role Status Dates Natalia Aguillon , WORKFORCE MANAGEMENT COORDINATOR-C Primary Care Provider Acti ve Siri Quezada , WORKFORCE MANAGEMENT COORDINATOR-CAttending ProviderActive Team Status: Inactive Member Role Status Dates Huan Cowan , DO Attending Provider Active Team Status: Active Member Role Status Dates Vonnie Guerrero , WORKFORCE MANAGEMENT COORDINATOR-C Primary Care Provider Active Siri Quezada , WORKFORCE MANAGEMENT COORDINATOR-CAttending ProviderActive Team Status: Active Member Role Status Dates PHYSICIAN NO FAMILY Primary Care Provider Active Team Status: Inactive Member Role Status Dates PHYSICIAN NO FAMILY Primary Care Provider Active Start: June 11, 2023 End: June 11, 2023Jemark Quezada , WORKFORCE MANAGEMENT COORDINATOR-CAttending ProviderActiveStart: June 11, 2023 End: June 11, 2023Team MemberRelationshipSpecialtyStart DateEnd Date Natalia Aguillon, RAD [address] [place] [address] PCP - Generalmily Medicine11/23/19Team MemberRelationshipSpecialtyStart DateEnd Date Demetrius Bernal MD [address] [place] [address] PCP - GeneralFamily Bqxlryoa57/29/24Team MemberRelationshipSpecialtyStart Date End Date Demetrius Bernal MD [address] [place] [address] PCP - GeneralFamily Eabidasw04/29/24Team MemberRelationshipSpecialtyStart Date End Date Demetrius Bernal MD [address] [facility] [address] [place] [address] PCP - [facility] Apzxvzcd08/29/24 Team Status: Active Member Role Status Dates PHYSICIAN NO FAMILY Primary Care Provider Active Start: January 28, 2024 Jared Mcgrath DOAttending ProviderActiveStart: January 28, 2024 Team Status: Inactive Member Role Status Dates Ton Connolly MD Attending Provider Active Start: March 13, 2024 End: March 13Sabas Salas Care Provider, Referring ProviderActiveStart: March 13, 2024 End: March 13, 2024 Team Status: Active Member Role Status Dates Ton Connolly MD Attending Provider, Other Provider Active Start: March 13, 2024 Sabas Fabian Care Provider, Referring ProviderActiveStart: March 13, 2024 Team Status: Inactive Member Role Status Dates Demetrius Bernal MD Primary Care Provider Active Start: April 17, 2024 End: April 17, 2024Imamomo Connolly MDAttending ProviderActiveStart: April 17, 2024 End: April 17, 2024 Team Status: Active Member Role Status Dates Demetrius Bernal MD Primary Care Provider Active Start: April 17, 2024 Imseferino Connolly MDAttending Provider, Other ProviderActiveStart: April 17, 2024 Team MemberRelationshipSpecialtyStart DateEnd Date Natalia Aguillon, INFECTION CONTROL PREVENTIONIST.CLUTCH REBUILDER [address] [place] [address] [facility] - [facility]11/23/19 Huan Cowan [address] [place] [address] IvqqyjdwsSdjvshofkaf45/31/24 Huan Cowan [address] [place] [address] ReferringOrthopedi04/03/24Te MemberRelationshipSpecialtyStwilliamsville DateEnd Date Natalia Aguillon, INFECTION CONTROL PREVENTIONIST.CLUTCH REBUILDER [address] [place] [address] PCP - Generalmily Medicine11/23/19 Huan Cowan [address] [place] [address] UfxdiikpsPqppwvbdzzc43/31/24 Huan Cowan [address] [place] [address] ReferringOrthopedi04/03/24Te MemberMercy HospitalpecialtyStwilliamsville DateEnd Date Demetrius Bernal MD [address] [place] [address] PCP - [facility] Kflcfpwy06/29/24 Goals (unrecognized section and content) Goals may [...] BE BASED ON THE PRIMARY CLINICAL RECORDS. [facility]. provides no warranty or guarantee of the accuracy or completeness of information in this document.
--- NOTE | 2025-02-09 16:00 | CA_ITS ---
Patient Name: NEHAL BAIG MR#: [id number] : 1970 Exam Date: 02/09/2025 Ordering Doctor: DR KENDALL CARTER M.D. ECHOCARDIOGRAM REPORT PROCEDURE: CA ECHO DOPPLER COMPLETE INDICATIONS: Aortic valve stenosis COMPARISON: None. DESCRIPTION: COMPLETE ECHOCARDIOGRAM Real-time transthoracic echocardiography with 2D, M-mode, spectral and color flow Doppler performed. QUALITY: Technical quality was limited because of body habitus. LEFT VENTRICLE: Mild dilatation. Normal left ventricular wall thickness. LV EF: Global left ventricular systolic function is difficult to assess but appears preserved; visual estimation of left ventricular ejection fraction is 55-60%. Unable to assess regional wall motion abnormalities. DIASTOLIC: Normal diastolic function. ATRIAL SEPTUM: Inadequately seen. LEFT ATRIUM: Normal chamber size. RIGHT ATRIUM: Normal chamber size. RIGHT VENTRICLE: Poorly seen. Normal chamber size. Normal systolic function. TRICUSPID VALVE: Grossly normal. No stenosis with trivial regurgitation. No evidence of pulmonary hypertension. RVSP 12mmHg. MITRAL VALVE: Normal mobility and thickness. No evidence of mitral valve stenosis. There is no mitral annular calcification. Trivial mitral regurgitation. AORTIC VALVE: Poorly seen. Mechanical valve with normal flow. DVI 0.41, OSCAR 1.7cm2, Vmax 2.1m/s, mean/peak gradients 17/9 mmHg. No aortic regurgitation. AORTIC ROOT: Normal diameter and appearance. PULMONIC VALVE: Normal thickness and mobility. No stenosis. No regurgitation. PERICARDIUM: Anterior free space; trivial effusion versus fat pad. IVC: Collapses with inspiration. The IVC is normal in size measuring 2.0cm CONCLUSION: 1. Global left ventricular systolic function is difficult to assess but appears preserved; visually estimated ejection fraction is 55 to 60% 2. The right ventricle is poorly seen; it appears normal in size and systolic function 3. Normal diastolic function 4. The left atrium is normal in size 5. Valves are poorly seen; mechanical aortic valve is seen with normal Doppler flows 6. Anterior free space; trivial effusion versus fat pad Adult Echocardiography Procedure Report Left Ventricle LVEDD (3.7 - 5.6 cm): 5.87 cm LVESD (2.2 - 4.0 cm): 3.94 cm LVIVS thickness (0.6 - 1.2 cm): 0.72 cm LVPW thickness (0.5 - 1.0 cm): 0.77 cm e': 0.14 m/s E - e': 6.10 LVOT Max Gradient: 3.02 mm[Hg] LVOT Area (cm2): 0.87 m/s Peak Velocity (LVOT): 0.87 m/s Mean Velocity (LVOT): 0.64 m/s LVOT Diameter 2.09 cm Left Atrium LA Volume Index (2D A2C): 29.38 ml/m2 Left Atrium Systolic Dimension: 4.36 cm Mitral Valve MV E to A Ratio: 1.77 Mitral Valve A-Wave Peak Velocity: 0.47 m/s Mitral Valve E-Wave Peak Velocity: 0.83 m/s Right Ventricle RV Internal Diastolic Dimension: 3.81 cm Aorta AO Root Diam: 3.39 cm Ascending Ao Diam: 3.58 cm Aortic Valve AoV Area (Peak Derik): 1.43 cm2, 1.42 cm2, 1.60 cm2, 1.60 cm2 AoV Area (VTI): 1.67 cm2, 1.72 cm2 Peak Velocity(Antegrade Flow): 2.08 m/s, 2.07 m/s, 1.85 m/s Peak Gradient(Antegrade Flow): 17.35 mm[Hg], 13.72 mm[Hg], 17.08 mm[Hg] Mean Velocity(Antegrade Flow): 1.41 m/s, 1.38 m/s Mean Gradient(Antegrade Flow): 9.36 mm[Hg], 8.84 mm[Hg] Velocity Time Integral: 36.59 cm, 38.73 cm Tricuspid Valve Peak Velocity (Regurgitant Flow): 1.51 m/s Pulmonic Valve Peak Velocity: 0.80 m/s Peak Gradient: 2.43 mm[Hg], 2.71 mm[Hg] Right Atrium Right Atrium Systolic Pressure: 46.14 ml, 46.14 ml Dictated by: Kendall Carter M.D. on 02/10/2025 at 16:00 Approved by: Kendall Carter M.D. on 02/10/2025 at 16:04
== END 2025-02-09 15:39 | disposition home or self-care (01) ==
LOC: CARD 15:38
PROVIDERS: PCP Family Medicine; Visit Provider Internal Medicine Interventional Cardiology
DX: I35.0 Nonrheumatic aortic (valve) stenosis (principal)
CPT/HCPCS: 93306

== ENCOUNTER 2025-03-01 10:12 | Outpatient (RCR) | payer OTHER, SELFPAY | END 2025-03-31 13:17 | disposition home or self-care (01) | LOC: MM 10:12 | PROVIDERS: PCP Family Medicine; Visit Provider Internal Medicine | DX: Z51.81 Encounter for therapeutic drug level monitoring (principal); Z79.01 Long term (current) use of anticoagulants; Z95.2 Presence of prosthetic heart valve ==